=== PATIENT | female | born 1945 | race Caucasian/White ===

== ENCOUNTER → 2017-04-11 10:57 | Outpatient (CLI) | payer MEDICARE, OTHER, SELFPAY ==
[2017-04-11 11:31] VITALS: BP 146/65; PULSE 86; RESP 16; TEMP 36.8; O2SAT 98
[2017-04-11 11:48] LABS: Hematocrit 33.2 % (37-47); Hemoglobin 10.5 g/dl (12.0-15.0)
--- NOTE | 2017-04-11 12:00 | NURSING ---
NO EPOGEN NEEDED PER ORDER
== END ==
PROVIDERS: Family Provider Internal Medicine; PCP Internal Medicine; Visit Provider Internal Medicine Nephrology
DX: N18.3 Chronic kidney disease, stage 3 (moderate) (principal); D63.1 Anemia in chronic kidney disease
CPT/HCPCS: 36591; 85014; 85018; A4216

== ENCOUNTER → 2017-04-25 10:38 | Outpatient (CLI) | payer MEDICARE, OTHER, SELFPAY ==
[2017-04-25 10:54] VITALS: BP 144/71; PULSE 96; RESP 16; TEMP 36.3; O2SAT 100; BMI 46.0
[2017-04-25 10:58] LABS: Hematocrit 31.7 % (37-47); Hemoglobin 10.2 g/dl (12.0-15.0)
== END ==
PROVIDERS: Family Provider Internal Medicine; PCP Internal Medicine; Visit Provider Internal Medicine Nephrology
DX: N18.3 Chronic kidney disease, stage 3 (moderate) (principal); D63.1 Anemia in chronic kidney disease
CPT/HCPCS: 85014; 85018; 96372; J0885

== ENCOUNTER → 2017-05-09 12:39 | Outpatient (CLI) | payer MEDICARE, OTHER, SELFPAY ==
[2017-04-25 10:54] VITALS: BP 144/71; BMI 46.0
[2017-05-09 13:10] VITALS: BP 136/50; PULSE 92; RESP 16; TEMP 37; O2SAT 99; BMI 46.0
[2017-05-09 13:12] LABS: Hematocrit 31.4 % (37-47)
[2017-05-09 13:37] LABS: Albumin, Serum 3.2 g/dL (3.2-5.0); BUN 39 mg/dL (7-18); BUN/Creat Ratio 21.7 RATIO (10-20); Calcium,Total 8.6 mg/dL (8.5-10.1); Chloride 108 mmol/L (98-107); EST Glomerular Filtration Rate 29 mL/min (>60); Est Glom Filt Rate - Afr Amer 35 mL/min (>60); Estimated Creatinine Clearance 23.03 ml/min; Ferritin 40 ng/mL (8-252); Glucose 140 mg/dL (74-106); Iron 77 ug/dL (50-170); Iron Binding Capacity,Total 338 ug/dL (250-450); PERCENT IRON SATURATION 22.8 % (15.0-55.0); Phosphorus 4.5 mg/dL (2.5-4.9); Potassium 4.4 mmol/L (3.5-5.1); Sodium Level 143 mmol/L (136-145)
== END ==
PROVIDERS: Family Provider Internal Medicine; PCP Internal Medicine; Visit Provider Internal Medicine Nephrology
DX: N18.3 Chronic kidney disease, stage 3 (moderate) (principal); D63.1 Anemia in chronic kidney disease
CPT/HCPCS: 80069; 82728; 83540; 83550; 85014; 85018; 96372; J0885

== ENCOUNTER → 2017-05-23 10:44 | Outpatient (CLI) | payer MEDICARE, OTHER, SELFPAY ==
[2017-05-23 11:34] LABS: Hematocrit 32.6 % (37-47); Hemoglobin 10.5 g/dl (12.0-15.0)
[2017-05-23 11:52] LABS: BUN 33 mg/dL (7-18); Creatinine, Serum 1.83 mg/dL (0.55-1.02); Glucose 84 mg/dL (74-106)
[2017-05-23 11:53] LABS: ALB/GLOB Ratio 0.9 RATIO (0.9-2.4); AST(SGOT) 18 U/L (15-37); Alanine Aminotransfer ALT/SGPT 23 U/L (13-56); Albumin, Serum 3.3 g/dL (3.2-5.0); Alkaline Phosphatase 61 U/L (45-117); Anion Gap 10 (5-15); Calcium,Total 8.9 mg/dL (8.5-10.1); Chloride 107 mmol/L (98-107); Cholesterol 121 mg/dL (200); EST Glomerular Filtration Rate 29 mL/min (>60); Est Glom Filt Rate - Afr Amer 35 mL/min (>60); Globulin 3.5 g/dL (2.2-4.2); High Density Lipoprotein 48 mg/dL; Potassium 4.2 mmol/L (3.5-5.1); Protein, Total 6.8 g/dL (6.4-8.2); Sodium Level 142 mmol/L (136-145); Triglycerides 139 mg/dL; Very Low Density Lipoprotein 28 mg/dL (5-40)
[2017-05-23 12:06] LABS: Microalbumin,Random Urine 97.6 mg/L (NO RANGE EST.); Microalbumin:Creatinine Ratio 122.5 mg/g CRE (<30 mg/g CRE)
== END ==
PROVIDERS: Family Provider Internal Medicine; PCP Internal Medicine; Visit Provider Internal Medicine Nephrology
DX: N18.3 Chronic kidney disease, stage 3 (moderate) (principal); D63.1 Anemia in chronic kidney disease
CPT/HCPCS: 36591; 80053; 80061; 82043; 82570; 83036; 85014; 85018; A4216

== ENCOUNTER → 2017-06-06 08:34 | Outpatient (CLI) | payer MEDICARE, OTHER, SELFPAY ==
[2017-06-06 08:59] LABS: Hematocrit 32.8 % (37-47); Hemoglobin 10.4 g/dl (12.0-15.0)
[2017-06-06 09:10] LABS: Albumin, Serum 3.4 g/dL (3.2-5.0); BUN 33 mg/dL (7-18); Calcium,Total 9.1 mg/dL (8.5-10.1); Chloride 108 mmol/L (98-107); Creatinine, Serum 1.83 mg/dL (0.55-1.02); EST Glomerular Filtration Rate 29 mL/min (>60); Est Glom Filt Rate - Afr Amer 35 mL/min (>60); Glucose 101 mg/dL (74-106); Phosphorus 3.4 mg/dL (2.5-4.9); Potassium 4.6 mmol/L (3.5-5.1); Sodium Level 141 mmol/L (136-145)
[2017-06-06 09:21] VITALS: BP 146/76; PULSE 67; RESP 18; TEMP 36.2; O2SAT 98; BMI 46.0
== END ==
PROVIDERS: Family Provider Internal Medicine; PCP Internal Medicine; Visit Provider Internal Medicine Nephrology
DX: N18.3 Chronic kidney disease, stage 3 (moderate) (principal); D63.1 Anemia in chronic kidney disease
CPT/HCPCS: 36592; 80069; 85014; 85018; 96372; J0885; A4216

== ENCOUNTER → 2017-06-19 10:47 | Outpatient (CLI) | payer MEDICARE, OTHER, SELFPAY ==
[2017-06-19 11:05] VITALS: BP 133/69; PULSE 88; RESP 16; TEMP 36.4; O2SAT 99; BMI 47.8
[2017-06-19 11:37] LABS: Hematocrit 33.5 % (37-47); Hemoglobin 10.5 g/dl (12.0-15.0)
== END ==
PROVIDERS: Family Provider Internal Medicine; PCP Internal Medicine; Visit Provider Internal Medicine Nephrology
DX: N18.3 Chronic kidney disease, stage 3 (moderate) (principal); D63.1 Anemia in chronic kidney disease
CPT/HCPCS: 85014; 85018; A4216

== ENCOUNTER → 2017-07-03 10:42 | Outpatient (CLI) | payer MEDICARE, OTHER, SELFPAY ==
[2017-07-03 11:18] LABS: Hematocrit 32.6 % (37-47); Hemoglobin 10.3 g/dl (12.0-15.0)
[2017-07-03 11:39] LABS: Albumin, Serum 3.2 g/dL (3.2-5.0); BUN 25 mg/dL (7-18); BUN/Creat Ratio 13.9 RATIO (10-20); Calcium,Total 8.8 mg/dL (8.5-10.1); Chloride 110 mmol/L (98-107); EST Glomerular Filtration Rate 29 mL/min (>60); Est Glom Filt Rate - Afr Amer 35 mL/min (>60); Glucose 67 mg/dL (74-106); Phosphorus 2.6 mg/dL (2.5-4.9); Potassium 4.8 mmol/L (3.5-5.1); Sodium Level 144 mmol/L (136-145)
[2017-07-03 11:43] VITALS: BP 122/62; PULSE 95; RESP 16; TEMP 36.8; O2SAT 100; BMI 46.0
== END ==
PROVIDERS: Family Provider Internal Medicine; PCP Internal Medicine; Visit Provider Internal Medicine Nephrology
DX: N18.3 Chronic kidney disease, stage 3 (moderate) (principal); D63.1 Anemia in chronic kidney disease
CPT/HCPCS: 80069; 85014; 85018; 96372; J0885; A4216

== ENCOUNTER → 2017-07-17 10:43 | Outpatient (CLI) | payer MEDICARE, OTHER, SELFPAY ==
[2017-07-17 11:08] VITALS: BP 144/73; PULSE 88; RESP 16; TEMP 36.8; O2SAT 98; BMI 46.0
[2017-07-17 11:12] LABS: Hematocrit 33.3 % (37-47); Hemoglobin 10.4 g/dl (12.0-15.0)
== END ==
PROVIDERS: Family Provider Internal Medicine; PCP Internal Medicine; Visit Provider Internal Medicine Nephrology
DX: N18.3 Chronic kidney disease, stage 3 (moderate) (principal); D63.1 Anemia in chronic kidney disease
CPT/HCPCS: 36591; 85014; 85018; 96372; J0885; A4216

== ENCOUNTER → 2017-07-31 10:52 | Outpatient (CLI) | payer MEDICARE, OTHER, SELFPAY ==
[2017-07-31 11:35] LABS: Hematocrit 33.8 % (37-47); Hemoglobin 10.6 g/dl (12.0-15.0)
--- NOTE | 2017-07-31 11:39 | NURSING ---
NO EPOGEN NEEDED PER ORDER, DISCHARGED IN STABLE CONDITION.
[2017-07-31 11:53] LABS: Albumin, Serum 3.4 g/dL (3.2-5.0); BUN 37 mg/dL (7-18); BUN/Creat Ratio 20.7 RATIO (10-20); Chloride 110 mmol/L (98-107); Creatinine, Serum 1.79 mg/dL (0.55-1.02); EST Glomerular Filtration Rate 30 mL/min (>60); Est Glom Filt Rate - Afr Amer 36 mL/min (>60); Ferritin 36 ng/mL (8-252); Glucose 80 mg/dL (74-106); Iron 97 ug/dL (50-170); Iron Binding Capacity,Total 333 ug/dL (250-450); PERCENT IRON SATURATION 29.1 % (15.0-55.0); Phosphorus 3.5 mg/dL (2.5-4.9); Potassium 4.6 mmol/L (3.5-5.1); Sodium Level 143 mmol/L (136-145)
== END ==
PROVIDERS: Family Provider Internal Medicine; PCP Internal Medicine; Visit Provider Internal Medicine Nephrology
DX: N18.3 Chronic kidney disease, stage 3 (moderate) (principal); D63.1 Anemia in chronic kidney disease
CPT/HCPCS: 36591; 80069; 82728; 83540; 83550; 85014; 85018; A4216

== ENCOUNTER → 2017-08-14 10:41 | Outpatient (CLI) | payer MEDICARE, OTHER, SELFPAY ==
[2017-08-14 11:05] LABS: Hematocrit 33.3 % (37-47); Hemoglobin 10.6 g/dl (12.0-15.0)
== END ==
PROVIDERS: Family Provider Internal Medicine; PCP Internal Medicine; Visit Provider Internal Medicine Nephrology
DX: N18.3 Chronic kidney disease, stage 3 (moderate) (principal); D63.1 Anemia in chronic kidney disease
CPT/HCPCS: 85014; 85018; 96523; A4216

== ENCOUNTER → 2017-08-28 11:57 | Outpatient (CLI) | payer MEDICARE, OTHER, SELFPAY ==
[2017-08-28 12:51] VITALS: BP 147/73; PULSE 84; RESP 16; TEMP 36.3
[2017-08-28 12:55] LABS: Hematocrit 33.4 % (37-47); Hemoglobin 10.8 g/dl (12.0-15.0); Mean Corp Hgb Conc 32.3 g/gl (32-36); Mean Corpuscular Volume 98.8 fL (81-99); Mean Platelet Vol. 9.5 fl (6.2-12.0); Platelet Count 206 K/mm3 (150-450); RBC Distribution Width CV 14.3 % (11.6-14.6); RBC Distribution Width SD 50.2 fl (35.1-43.9); Red Blood Count 3.38 M/mm3 (4.2-5.4); White Blood Count 5.5 K/mm3 (4.4-11.0)
[2017-08-28 12:57] LABS: Scan Indicated on CBC? Y/N NO
[2017-08-28 13:17] LABS: Albumin, Serum 3.4 g/dL (3.2-5.0); BUN 39 mg/dL (7-18); BUN/Creat Ratio 18.9 RATIO (10-20); Chloride 109 mmol/L (98-107); Creatinine, Serum 2.06 mg/dL (0.55-1.02); EST Glomerular Filtration Rate 25 mL/min (>60); Est Glom Filt Rate - Afr Amer 30 mL/min (>60); Glucose 77 mg/dL (74-106); Phosphorus 3.6 mg/dL (2.5-4.9); Potassium 4.5 mmol/L (3.5-5.1); Sodium Level 141 mmol/L (136-145)
[2017-08-28 13:21] LABS: PTHIN 157.8 pg/mL (18.4-80.1)
[2017-08-28 13:24] LABS: Vitamin D,25 Hydroxy 18.7 ng/mL (29.95-100.01)
[2017-08-28 13:37] LABS: Microalbumin:Creatinine Ratio 170.5 mg/g CRE (<30 mg/g CRE)
== END ==
PROVIDERS: Family Provider Internal Medicine; PCP Internal Medicine; Visit Provider Internal Medicine Nephrology
DX: N18.3 Chronic kidney disease, stage 3 (moderate) (principal); D63.1 Anemia in chronic kidney disease
CPT/HCPCS: 36591; 80069; 82043; 82306; 82570; 83970; 85027; A4216

== ENCOUNTER → 2017-09-11 10:39 | Outpatient (CLI) | payer MEDICARE, OTHER, SELFPAY ==
[2017-09-11 11:01] LABS: Hematocrit 32.4 % (37-47); Hemoglobin 10.4 g/dl (12.0-15.0)
[2017-09-11 11:04] VITALS: BP 123/75; PULSE 94; RESP 16; TEMP 36.6; O2SAT 98; BMI 47.8
== END ==
PROVIDERS: Family Provider Internal Medicine; PCP Internal Medicine; Visit Provider Internal Medicine Nephrology
DX: N18.3 Chronic kidney disease, stage 3 (moderate) (principal); D63.1 Anemia in chronic kidney disease
CPT/HCPCS: 36591; 85014; 85018; 96372; J0885; A4216

== ENCOUNTER → 2017-09-25 10:46 | Outpatient (CLI) | payer MEDICARE, OTHER, SELFPAY ==
[2017-09-25 11:33] LABS: Hematocrit 32.4 % (37-47)
[2017-09-25 11:43] LABS: Albumin, Serum 3.3 g/dL (3.2-5.0); BUN 31 mg/dL (7-18); BUN/Creat Ratio 15.5 RATIO (10-20); Calcium,Total 8.5 mg/dL (8.5-10.1); Chloride 108 mmol/L (98-107); EST Glomerular Filtration Rate 26 mL/min (>60); Est Glom Filt Rate - Afr Amer 31 mL/min (>60); Glucose 110 mg/dL (74-106); Phosphorus 3.4 mg/dL (2.5-4.9); Sodium Level 142 mmol/L (136-145)
[2017-09-25 11:45] VITALS: BP 126/66; PULSE 89; RESP 16; TEMP 36.3; O2SAT 95; BMI 47.8
== END ==
PROVIDERS: Family Provider Internal Medicine; PCP Internal Medicine; Visit Provider Internal Medicine Nephrology
DX: N18.3 Chronic kidney disease, stage 3 (moderate) (principal); D63.1 Anemia in chronic kidney disease
CPT/HCPCS: 80069; 85014; 85018; 96372; J0885

== ENCOUNTER → 2017-10-09 10:44 | Outpatient (CLI) | payer MEDICARE, OTHER, SELFPAY ==
[2017-10-09 11:17] LABS: Hemoglobin 10.6 g/dl (12.0-15.0)
== END ==
PROVIDERS: Family Provider Internal Medicine; PCP Internal Medicine; Visit Provider Internal Medicine Nephrology
DX: N18.3 Chronic kidney disease, stage 3 (moderate) (principal); D63.1 Anemia in chronic kidney disease
CPT/HCPCS: 36415; 36591; 85014; 85018; J0885; A4216

== ENCOUNTER → 2017-10-23 10:42 | Outpatient (CLI) | payer MEDICARE, OTHER, SELFPAY ==
[2017-10-23 11:17] LABS: Hematocrit 33.4 % (37-47); Hemoglobin 10.4 g/dl (12.0-15.0)
[2017-10-23 11:32] VITALS: BP 116/58; PULSE 91; RESP 18; TEMP 36.7; O2SAT 95; BMI 47.8
[2017-10-23 11:36] LABS: Albumin, Serum 3.5 g/dL (3.2-5.0); BUN 42 mg/dL (7-18); BUN/Creat Ratio 21.4 RATIO (10-20); Calcium,Total 8.8 mg/dL (8.5-10.1); Chloride 107 mmol/L (98-107); Creatinine, Serum 1.96 mg/dL (0.55-1.02); EST Glomerular Filtration Rate 27 mL/min (>60); Est Glom Filt Rate - Afr Amer 32 mL/min (>60); Estimated Creatinine Clearance 21.15 ml/min; Ferritin 63 ng/mL (8-252); Glucose 112 mg/dL (74-106); Iron 69 ug/dL (50-170); Iron Binding Capacity,Total 331 ug/dL (250-450); PERCENT IRON SATURATION 20.8 % (15.0-55.0); Potassium 4.8 mmol/L (3.5-5.1); Sodium Level 142 mmol/L (136-145)
== END ==
PROVIDERS: Family Provider Internal Medicine; PCP Internal Medicine; Visit Provider Internal Medicine Nephrology
DX: N18.3 Chronic kidney disease, stage 3 (moderate) (principal); D63.1 Anemia in chronic kidney disease
CPT/HCPCS: 80069; 82728; 83540; 83550; 85014; 85018; 96372; J0885

== ENCOUNTER → 2017-11-06 10:49 | Outpatient (CLI) | payer MEDICARE, OTHER, SELFPAY ==
[2017-11-06 11:08] LABS: Hematocrit 34.1 % (37-47); Hemoglobin 10.7 g/dl (12.0-15.0)
--- NOTE | 2017-11-06 11:15 | NURSING ---
NO EPOGEN NEEDED PER ORDERS
== END ==
PROVIDERS: Family Provider Internal Medicine; PCP Internal Medicine; Visit Provider Internal Medicine Nephrology
DX: N18.3 Chronic kidney disease, stage 3 (moderate) (principal); D63.1 Anemia in chronic kidney disease
CPT/HCPCS: 36591; 85014; 85018; J0885; A4216

== ENCOUNTER → 2017-11-20 10:08 | Outpatient (CLI) | payer MEDICARE, OTHER, SELFPAY ==
[2017-11-20 10:35] LABS: Hemoglobin 10.6 g/dl (12.0-15.0)
[2017-11-20 11:10] LABS: Albumin, Serum 3.5 g/dL (3.2-5.0); BUN 36 mg/dL (7-18); Calcium,Total 8.9 mg/dL (8.5-10.1); Chloride 109 mmol/L (98-107); EST Glomerular Filtration Rate 29 mL/min (>60); Est Glom Filt Rate - Afr Amer 35 mL/min (>60); Glucose 88 mg/dL (74-106); Phosphorus 3.4 mg/dL (2.5-4.9); Potassium 4.6 mmol/L (3.5-5.1); Sodium Level 144 mmol/L (136-145)
== END ==
PROVIDERS: Family Provider Internal Medicine; PCP Internal Medicine; Visit Provider Internal Medicine Nephrology
DX: N18.3 Chronic kidney disease, stage 3 (moderate) (principal); D63.1 Anemia in chronic kidney disease
CPT/HCPCS: 36591; 80069; 85014; 85018; J0885; A4216

== ENCOUNTER → 2017-12-04 10:39 | Outpatient (CLI) | payer MEDICARE, OTHER, SELFPAY ==
[2017-12-04 11:11] LABS: Hematocrit 32.2 % (37-47); Hemoglobin 10.5 g/dl (12.0-15.0)
== END ==
PROVIDERS: Family Provider Internal Medicine; PCP Internal Medicine; Visit Provider Internal Medicine Nephrology
DX: N18.3 Chronic kidney disease, stage 3 (moderate) (principal); D63.1 Anemia in chronic kidney disease
CPT/HCPCS: 36591; 85014; 85018; J0885; A4216

== ENCOUNTER → 2018-01-01 10:35 | Outpatient (CLI) | payer MEDICARE, OTHER, SELFPAY ==
[2018-01-01 10:53] VITALS: BP 143/73; PULSE 91; RESP 15; TEMP 36.7; BMI 49.6
[2018-01-01 11:04] LABS: Hematocrit 32.4 % (37-47); Hemoglobin 10.3 g/dl (12.0-15.0)
[2018-01-01 11:21] LABS: Albumin, Serum 3.5 g/dL (3.2-5.0); BUN 34 mg/dL (7-18); BUN/Creat Ratio 17.4 RATIO (10-20); Chloride 107 mmol/L (98-107); Creatinine, Serum 1.95 mg/dL (0.55-1.02); EST Glomerular Filtration Rate 27 mL/min (>60); Est Glom Filt Rate - Afr Amer 32 mL/min (>60); Estimated Creatinine Clearance 21.25 ml/min; Glucose 134 mg/dL (74-106); Phosphorus 3.2 mg/dL (2.5-4.9); Potassium 4.5 mmol/L (3.5-5.1); Sodium Level 140 mmol/L (136-145)
== END ==
PROVIDERS: Family Provider Internal Medicine; PCP Internal Medicine; Visit Provider Internal Medicine Nephrology
DX: N18.3 Chronic kidney disease, stage 3 (moderate) (principal); D63.1 Anemia in chronic kidney disease
CPT/HCPCS: 80069; 85014; 85018; 96372; J0885

== ENCOUNTER 2018-01-23 10:51 | Inpatient (IN) | payer OTHER, MEDICARE, SELFPAY ==
[2018-01-23] VITALS (8 sets, daily range): BP systolic 115–149; BP diastolic 54–68; PULSE 88–106; RESP 16–22; TEMP 36.6–36.9; O2SAT 96–100; BMI 48.6; BMI 48.7
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
[2018-01-23] MEDS: Morphine 4 MG/ML Syringe IV (12:20)
[2018-01-23] MEDS: 0.9% Normal Saline 1,000 ML 1000 ML IV (12:20)
[2018-01-23] MEDS: Ondansetron 4 MG/2 ML Vial IV (12:20)
[2018-01-23 12:37] LABS: Absolute Lymphocyte Count 1.11 X10^3/ul (0.83-4.51); Absolute Neutrophil Count 6.2 X10^3/uL (2.0-7.7); Basophil# 0.01 X10^3/uL; Basophil% 0.1 % (0-1); Eosinophil# 0.09 X10^3/uL; Eosinophils% 1.1 % (0-5); Hematocrit 31.4 % (37-47); Lymphocyte # 1.11 X10^3/ul (4.0); Mean Corp Hgb Conc 31.8 g/gl (32-36); Mean Corpuscular Hgb 32.3 pg (27.0-32.0); Mean Corpuscular Volume 101.3 fL (81-99); Mean Platelet Vol. 9.2 fl (6.2-12.0); Monocyte# 0.53 X10^3/uL; Monocyte% 6.7 % (0-10); Neutrophil # 6.16 X10^3/uL (2.7-7.7); Neutrophil % 77.5 % (47-70); POSITIVE COUNT NO; POSITIVE DIFFERENTIAL NO; POSITIVE MORPHOLOGY NO; Platelet Count 166 K/mm3 (150-450); RBC Distribution Width CV 14.5 % (11.6-14.6); RBC Distribution Width SD 51.9 fl (35.1-43.9)
[2018-01-23 12:44] LABS: Prothrombin Time (Protime)PT. 13.1 SECONDS (11.7-14.9)
[2018-01-23 12:51] LABS: ALB/GLOB Ratio 0.9 RATIO (0.9-2.4); AST(SGOT) 21 U/L (15-37); Alanine Aminotransfer ALT/SGPT 34 U/L (13-56); Albumin, Serum 3.2 g/dL (3.2-5.0); Alkaline Phosphatase 52 U/L (45-117); Anion Gap 6 (5-15); BUN 37 mg/dL (7-18); BUN/Creat Ratio 18.9 RATIO (10-20); Calcium,Total 8.8 mg/dL (8.5-10.1); Chloride 109 mmol/L (98-107); Creatinine, Serum 1.96 mg/dL (0.55-1.02); EST Glomerular Filtration Rate 27 mL/min (>60); Est Glom Filt Rate - Afr Amer 32 mL/min (>60); Estimated Creatinine Clearance 21.15 ml/min; Globulin 3.6 g/dL (2.2-4.2); Glucose 111 mg/dL (74-106); Potassium 4.6 mmol/L (3.5-5.1); Protein, Total 6.8 g/dL (6.4-8.2); Sodium Level 140 mmol/L (136-145)
[2018-01-23] MEDS: HYDROmorphone 1 MG/ML Syringe IV ×3 (13:46→23:20)
[2018-01-23 14:39] LABS: Mucous, Urine 0 SEEN /hpf (<or=2+); Squamous Epithelial Cells - UA 0 SEEN /hpf (5-10)
[2018-01-23 14:40] LABS: Glucose, Dipstick Normal (Normal); Ketone-Dipstick Negative (Negative); Leukocyte Esterase-Dipstick 25 /ul (Negative); Nitrite-Dipstick Negative (Negative); Occult Blood-Urine 150 /ul (Negative); Protein-Dipstick 30 mg/dl (Negative); Specific Gravity, Urine 1.015 (1.002-1.030); Urine Bilirubin Dipstick Negative (Negative); Urine Urobilinogen Normal (Normal)
[2018-01-23 14:42] LABS: Color, Urine Yellow (Yellow); Urine Clarity Clear (Clear)
[2018-01-23 14:47] LABS: Red Blood Cells-Urine 5-10 SEEN /hpf (0-5); White Blood Cells 0-5 SEEN /hpf (0-5)
[2018-01-23 14:48] LABS: Bacteria RARE /hpf (None Seen)
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
[2018-01-23] MEDS: morphine 8 MG/ML Syringe 6 MG IV (16:13)
[2018-01-23] MEDS: LORazepam 2 MG/ML Syringe 0.5 MG IV ×2 (16:20→20:26)
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
--- NOTE | 2018-01-23 16:38 | EKG12_ITS ---
Test Reason : ADMISSION ORDER Blood Pressure : / mmHG Vent. Rate : 093 BPM Atrial Rate : 093 BPM P-R Int : 178 ms QRS Dur : 106 ms QT Int : 388 ms P-R-T Axes : 056 -33 048 degrees QTc Int : 482 ms Normal sinus rhythm Left axis deviation Moderate voltage criteria for LVH, may be normal variant Nonspecific T wave abnormality Prolonged QT Abnormal ECG Confirmed by MANASA WANG ([id number]), editor index LALY DEE ([id number]) on 01/27/2018 2:26:35 PM Referred By: MARCUS Confirmed By:MANASA WANG
--- NOTE | 2018-01-23 16:40 | NURSING ---
303 WHITE RT ANKLE FX
--- NOTE | 2018-01-23 16:49 | RAD_ITS ---
STUDY: X-RAY - RIGHT SHOULDER REASON FOR EXAM: Female, 72 years old. Pain TECHNIQUE: 2 view(s) of the shoulder. COMPARISON: None. FINDINGS: There is moderate degenerative arthrosis of the glenohumeral articulation. There is widening of the acromioclavicular joint, likely due to previous resection of the distal clavicle Normal acromion. Normal humeral head and visualized proximal humerus. The soft tissue structures are unremarkable. Normal visualized pulmonary apex. 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 Previous resection of the distal clavicle No acute findings Electronically Signed: Jarred Horn MD at 17:10 EST , Service support ,
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
[2018-01-23] MEDS: 0.9% NaCl Peripheral Flush Adult/Peds IV ×3 (19:15→23:21)
[2018-01-23] MEDS: Gabapentin 300 MG Capsule PO (21:44)
[2018-01-23] MEDS: Atorvastatin Calcium 20 MG Tablet PO (21:44)
[2018-01-23] MEDS: oxyCODONE 5 MG Tablet PO (21:44)
[2018-01-23 21:56] LABS: Bedside Glucose 174 mg/dL (70-110)
[2018-01-23] MEDS: Insulin Lispro 100 UNIT/ML INSULN.PEN SC (22:15)
[2018-01-24] VITALS (13 sets, daily range): BP systolic 120–149; BP diastolic 63–93; PULSE 98–111; RESP 16–20; TEMP 36.6–37.3; O2SAT 92–100; BMI 48.7
[2018-01-24] MEDS: LORazepam 2 MG/ML Syringe 0.5 MG IV (00:50)
[2018-01-24] MEDS: 0.9% NaCl Peripheral Flush Adult/Peds IV ×5 (00:50→10:07)
[2018-01-24] MEDS: HYDROmorphone 1 MG/ML Syringe IV ×3 (02:20→10:07)
[2018-01-24] MEDS: 0.9% Normal Saline 1,000 ML 100 ML IV ×2 (02:20→18:46)
[2018-01-24 07:11] LABS: Bedside Glucose 75 mg/dL (70-110)
[2018-01-24 07:34] LABS: Anion Gap 4 (5-15); BUN 29 mg/dL (7-18); BUN/Creat Ratio 16.2 RATIO (10-20); Calcium,Total 8.1 mg/dL (8.5-10.1); Chloride 111 mmol/L (98-107); Creatinine, Serum 1.79 mg/dL (0.55-1.02); EST Glomerular Filtration Rate 29 mL/min (>60); Est Glom Filt Rate - Afr Amer 36 mL/min (>60); Estimated Creatinine Clearance 22.14 ml/min; Glucose 76 mg/dL (74-106); Potassium 4.5 mmol/L (3.5-5.1); Sodium Level 140 mmol/L (136-145)
[2018-01-24 07:36] LABS: Absolute Lymphocyte Count 1.37 X10^3/ul (0.83-4.51); Absolute Neutrophil Count 4.7 X10^3/uL (2.0-7.7); Basophil# 0.02 X10^3/uL; Basophil% 0.3 % (0-1); Eosinophil# 0.08 X10^3/uL; Eosinophils% 1.2 % (0-5); Hematocrit 26.4 % (37-47); Hemoglobin 8.1 g/dl (12.0-15.0); Lymphocyte # 1.37 X10^3/ul (4.0); Lymphocyte % 20.3 % (19-41); Mean Corp Hgb Conc 30.7 g/gl (32-36); Mean Corpuscular Hgb 31.8 pg (27.0-32.0); Mean Corpuscular Volume 103.5 fL (81-99); Mean Platelet Vol. 9.2 fl (6.2-12.0); Monocyte% 8.9 % (0-10); Neutrophil # 4.67 X10^3/uL (2.7-7.7); Neutrophil % 69.2 % (47-70); Platelet Count 161 K/mm3 (150-450); RBC Distribution Width CV 14.7 % (11.6-14.6); Red Blood Count 2.55 M/mm3 (4.2-5.4); White Blood Count 6.8 K/mm3 (4.4-11.0)
[2018-01-24 07:45] LABS: POSITIVE COUNT NO; POSITIVE DIFFERENTIAL NO; POSITIVE MORPHOLOGY NO
[2018-01-24 08:07] LABS: Hemoglobin A1c 6.7 % (4.2-6.3)
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
[2018-01-24 10:46] LABS: Bedside Glucose 87 mg/dL (70-110)
--- NOTE | 2018-01-24 10:55 | NURSING ---
PT TO OR VIA BED
--- NOTE | 2018-01-24 11:05 | NURSING ---
PT RESTING QUIETLY IN BED WITH EYES CLOSED, RESP EASY
--- NOTE | 2018-01-24 13:06 | RAD_ITS ---
STUDY: X-RAY - RIGHT ANKLE REASON FOR EXAM: Female, 72 years old. ORIF TECHNIQUE: 6 intraoperative view(s) of the ankle. COMPARISON: January 23, 2018. FINDINGS: Interval ORIF of the lateral malleolus with satisfactory alignment of the bony fragments. Interval reduction of medial malleolus fracture. Stable surgical fixation at the tarsal region. Bony details are limited. RAD/Ankle min 3 Views IMPRESSION: Interval ORIF of the lateral malleolus. Electronically Signed: James Boo DO at 20:18 EST Tel [phone], Service support ,
[2018-01-24] MEDS: Cefazolin 2 GM in 0.9% Normal Saline 100 ML IV (14:48)
[2018-01-24 17:10] LABS: Bedside Glucose 78 mg/dL (70-110)
--- NOTE | 2018-01-24 17:13 | PCM.IMDPSTOP ---
Problem List (1) Closed trimalleolar fracture of right ankle Status: Acute Qualifiers: Encounter type: subsequent encounter (2) Open fracture of medial malleolus of right ankle Status: Acute Qualifiers: Encounter type: subsequent encounter Immediate Post-Op Note Date of Procedure: 01/24/18 - Biometry Teacher: Tree Hickey, PGY3 and Monique Sue Primary Surgeon/Physician: Sariah Menchaca, DPM proof passer: none Pre-Operative Diagnosis: trimalleolar ankle fracture, right Post-Operative Diagnosis: trimalleolar ankle fracture, right Surgery/Procedure Performed:: open reduction internal fixation right ankle Description of Surgical Findings:: hemostasis controlled small eschar with drainage adjacent to medial malleolus ankle fracture no purulence see detailed operation report The patient tolerated the procedure and anesthesia well. She was transported to the PACU with vital signs stable and vascular status intact to the right lower extremity. She will be transferred back to the medical surgical floor upon continued stability. Postoperative x-rays were reviewed including reduction of the distal fibula and medial malleolus fracture fragments. Fibular hook plate with screws are in desired trajectory and position. No acute injuries are noted. The ankle mortise is congruent. Her postoperative orders were entered electronically. Due to the medial skin compromise I will also initiate 24-hour course of antibiotics and will confirm her tetanus is updated. Estimated Blood Loss: <200mL Specimen's removed: none Type of Anesthesia:: Spinal - additional right popliteal regional block performed post operative - Admit VTE Documentation VTE Present on Admission: No VTE Mechan Device Prophylaxis: SCD's VTE Pharm Prophylaxis ordered?: Yes
--- NOTE | 2018-01-24 17:16 | OP.PN_ITS ---
Problem List (1) Closed trimalleolar fracture of right ankle Status: Acute Qualifiers: Encounter type: subsequent encounter (2) Open fracture of medial malleolus of right ankle Status: Acute Qualifiers: Encounter type: subsequent encounter Immediate Post-Op Note Date of Procedure: 01/24/18 - Analytical Chemistry Teacher: Tree Hickey, PGY3 and Monique Sue Primary Surgeon/Physician: Sariah Menchaca, DPM scenario writer: none Pre-Operative Diagnosis: trimalleolar ankle fracture, right Post-Operative Diagnosis: trimalleolar ankle fracture, right Surgery/Procedure Performed:: open reduction internal fixation right ankle Description of Surgical Findings:: hemostasis controlled small eschar with drainage adjacent to medial malleolus ankle fracture no purulence see detailed operation report The patient tolerated the procedure and anesthesia well. She was transported to the PACU with vital signs stable and vascular status intact to the right lower extremity. She will be transferred back to the medical surgical floor upon continued stability. Postoperative x-rays were reviewed including reduction of the distal fibula and medial malleolus fracture fragments. Fibular hook plate with screws are in desired trajectory and position. No acute injuries are noted. The ankle mortise is congruent. Her postoperative orders were entered electronically. Due to the medial skin compromise I will also initiate 24-hour course of antibiotics and will confirm her tetanus is updated. Estimated Blood Loss: <200mL Specimen's removed: none Type of Anesthesia:: Spinal - additional right popliteal regional block performed post operative - Admit VTE Documentation VTE Present on Admission: No VTE Mechan Device Prophylaxis: SCD's VTE Pharm Prophylaxis ordered?: Yes
[2018-01-24 18:41] LABS: Bedside Glucose 71 mg/dL (70-110)
[2018-01-24] MEDS: oxyCODONE 5 MG Tablet PO (20:50)
[2018-01-24] MEDS: Gabapentin 300 MG Capsule PO (20:50)
[2018-01-24] MEDS: Atorvastatin Calcium 20 MG Tablet PO (20:53)
[2018-01-24 21:01] LABS: Bedside Glucose 78 mg/dL (70-110)
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
[2018-01-24] MEDS: Cefazolin 1 GM/50 ML BAG IV (23:40)
[2018-01-25] VITALS (10 sets, daily range): BP systolic 131–155; BP diastolic 60–74; PULSE 80–108; RESP 18–20; TEMP 36.7–38.3; O2SAT 88–95
[2018-01-25] MEDS: 0.9% Normal Saline 1,000 ML 100 ML IV ×3 (04:42→23:58)
[2018-01-25] MEDS: oxyCODONE 5 MG Tablet PO ×4 (05:00→19:48)
[2018-01-25] MEDS: Cefazolin 1 GM/50 ML BAG IV ×3 (05:01→21:16)
--- NOTE | 2018-01-25 05:27 | RAD_ITS ---
STUDY: X-RAY CHEST REASON FOR EXAM: Female, 72 years old. Fever reduction internal fixation TECHNIQUE: Single AP portable view of the chest. COMPARISON: The chest January 23, 2018 FINDINGS: Is a left-sided portacatheter tip is in the superior vena cava. There is an underexpanded appearance of the lungs with lower lobe atelectasis. There is trace blunting of the left costophrenic angle. There is mild cardiac enlargement. Normal mediastinum and monica. Normal visualized pulmonary arteries. There is atherosclerotic calcification of the aortic arch with tortuosity. There is a levoscoliosis of the thoracic spine. Normal visualized ribs, clavicles, and shoulders. There is no demonstrated abnormality of the visualized soft tissue structures of the upper abdomen. RAD/Chest 1 View (Portable) IMPRESSION: Mild cardiomegaly finding suspicious for trace effusion and atelectasis left greater than right. Mild cardiomegaly Port-A-Cath. Electronically Signed: Tracey Rashid MD at 16:20 EST Tel , Service support ,
[2018-01-25] MEDS: Acetaminophen 325 MG Tablet 650 MG PO ×3 (06:04→19:48)
--- NOTE | 2018-01-25 06:25 | NURSING ---
UNABLE TO DRAW LABS FROM [facility] AWARE
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
[2018-01-25 06:58] LABS: Absolute Lymphocyte Count 0.85 X10^3/ul (0.83-4.51); Absolute Neutrophil Count 5.9 X10^3/uL (2.0-7.7); Basophil# 0.01 X10^3/uL; Basophil% 0.1 % (0-1); Eosinophils% 1.3 % (0-5); Hematocrit 24.2 % (37-47); Hemoglobin 7.6 g/dl (12.0-15.0); Lymphocyte # 0.85 X10^3/ul (4.0); Mean Corp Hgb Conc 31.4 g/gl (32-36); Mean Corpuscular Hgb 32.1 pg (27.0-32.0); Mean Corpuscular Volume 102.1 fL (81-99); Mean Platelet Vol. 9.3 fl (6.2-12.0); Monocyte# 0.81 X10^3/uL; Monocyte% 10.5 % (0-10); Neutrophil # 5.92 X10^3/uL (2.7-7.7); POSITIVE COUNT NO; POSITIVE DIFFERENTIAL NO; POSITIVE MORPHOLOGY NO; Platelet Count 137 K/mm3 (150-450); RBC Distribution Width SD 50.5 fl (35.1-43.9); Red Blood Count 2.37 M/mm3 (4.2-5.4); White Blood Count 7.7 K/mm3 (4.4-11.0)
[2018-01-25 07:16] LABS: Bedside Glucose 137 mg/dL (70-110)
[2018-01-25 07:35] LABS: Anion Gap 7 (5-15); BUN 21 mg/dL (7-18); BUN/Creat Ratio 12.4 RATIO (10-20); Calcium,Total 7.8 mg/dL (8.5-10.1); Chloride 108 mmol/L (98-107); Creatinine, Serum 1.69 mg/dL (0.55-1.02); EST Glomerular Filtration Rate 31 mL/min (>60); Est Glom Filt Rate - Afr Amer 38 mL/min (>60); Estimated Creatinine Clearance 23.45 ml/min; Glucose 141 mg/dL (74-106); Potassium 4.5 mmol/L (3.5-5.1); Sodium Level 137 mmol/L (136-145)
[2018-01-25 07:38] LABS: Lactic Acid 0.7 mmol/L (0.4-2.0)
[2018-01-25] MEDS: 0.9% NaCl Peripheral Flush Adult/Peds IV (09:37)
--- NOTE | 2018-01-25 09:49 | NURSING ---
pt has unsuccessful standing on left leg-returned to bed, assisted to bedpan-therapy in room at this time
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
--- NOTE | 2018-01-25 11:20 | CASEMGMT ---
Referral received this date from [facility] due to anticipated need for SNF placement. Collaboration with unit RN who reports that patient is currently unable to stand/maintain NWB status on RLE. REFER TO ATTACHED SOCIAL WORK ASSESSMENT FOR ADDITIONAL DETAILS. Met with patient in her room. Introduced self and SW role at [facility]; patient not feeling well so meeting was brief. Discussed need for SNF placement and probable insurance pre-cert. Patient states that there is a skilled nursing close to her house in [place] however she does not feel that they have good therapy. She requests the hospital based TCU. SW explained that I can place her on list and primary SW can follow up with her on Saturday to advise regarding availability and insurance issues. Patient voiced agreement. PT/OT evaluations are completed. PLAN: Referral initiated per message on post-acute referral line for Norma with [facility] TCU with request for her to call primary SW on Saturday; did advise Norma of need for clarification regarding primary insurance along with patient's weight. SW did not ask patient for other options this date as she was not feeling well. Update provided to unit RN and [facility]. FRANKLYN Krishnamurthy
[2018-01-25] MEDS: Losartan Potassium 50 MG Tablet PO (11:26)
[2018-01-25] MEDS: Insulin Lispro 100 UNIT/ML INSULN.PEN SC ×3 (11:27→21:16)
[2018-01-25] MEDS: Ferrous Sulfate 325 MG Tablet PO ×2 (11:27→17:04)
[2018-01-25 11:36] LABS: Bedside Glucose 232 mg/dL (70-110)
[2018-01-25 12:54] LABS: Vitamin D,25 Hydroxy 30.5 ng/mL (29.95-100.01)
[2018-01-25 14:59] LABS: Bacteria 0 SEEN /hpf (None Seen); Color, Urine Yellow (Yellow); Glucose, Dipstick Normal (Normal); Ketone-Dipstick 5 mg/dl (Negative); Leukocyte Esterase-Dipstick 500 /ul (Negative); Mucous, Urine 0 SEEN /hpf (<or=2+); Nitrite-Dipstick Negative (Negative); Occult Blood-Urine 25 /ul (Negative); Protein-Dipstick 30 mg/dl (Negative); Red Blood Cells-Urine 0 SEEN /hpf (0-5); Specific Gravity, Urine 1.015 (1.002-1.030); Squamous Epithelial Cells - UA 0 SEEN /hpf (5-10); Urine Bilirubin Dipstick Negative (Negative); Urine Clarity Sl. Cloudy (Clear); Urine Urobilinogen Normal (Normal)
[2018-01-25 15:05] LABS: White Blood Cells >100 SEEN /hpf (0-5)
[2018-01-25 16:26] LABS: Bedside Glucose 219 mg/dL (70-110)
[2018-01-25] MEDS: Gabapentin 300 MG Capsule PO (19:48)
[2018-01-25] MEDS: Atorvastatin Calcium 20 MG Tablet PO (21:16)
[2018-01-26 00:16] LABS: Bedside Glucose 227 mg/dL (70-110)
[2018-01-26 02:00] VITALS: BP 125/57; PULSE 99; RESP 18; TEMP 36.8; O2SAT 96
[2018-01-26] MEDS: oxyCODONE 5 MG Tablet PO ×3 (05:08→19:02)
[2018-01-26] MEDS: Acetaminophen 325 MG Tablet 650 MG PO ×3 (05:09→19:03)
[2018-01-26] MEDS: 0.9% NaCl Peripheral Flush Adult/Peds IV ×2 (06:24→10:14)
[2018-01-26 06:42] LABS: Absolute Lymphocyte Count 0.89 X10^3/ul (0.83-4.51); Absolute Neutrophil Count 5.1 X10^3/uL (2.0-7.7); Basophil# 0.01 X10^3/uL; Basophil% 0.1 % (0-1); Eosinophil# 0.15 X10^3/uL; Eosinophils% 2.2 % (0-5); Hematocrit 23.9 % (37-47); Hemoglobin 7.5 g/dl (12.0-15.0); Lymphocyte # 0.89 X10^3/ul (4.0); Lymphocyte % 13.1 % (19-41); Mean Corp Hgb Conc 31.4 g/gl (32-36); Mean Corpuscular Hgb 32.1 pg (27.0-32.0); Mean Corpuscular Volume 102.1 fL (81-99); Monocyte# 0.65 X10^3/uL; Monocyte% 9.5 % (0-10); Neutrophil # 5.09 X10^3/uL (2.7-7.7); Neutrophil % 74.8 % (47-70); Platelet Count 134 K/mm3 (150-450); RBC Distribution Width CV 14.3 % (11.6-14.6); Red Blood Count 2.34 M/mm3 (4.2-5.4); White Blood Count 6.8 K/mm3 (4.4-11.0)
[2018-01-26 06:46] LABS: Bedside Glucose 122 mg/dL (70-110)
[2018-01-26 06:51] LABS: POSITIVE COUNT NO; POSITIVE DIFFERENTIAL NO; POSITIVE MORPHOLOGY NO
[2018-01-26 07:06] VITALS: O2SAT 77
[2018-01-26 08:00] VITALS: BP 156/79; PULSE 96; RESP 18; TEMP 37.1; O2SAT 99
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
[2018-01-26 08:49] LABS: Anion Gap 8 (5-15); BUN 23 mg/dL (7-18); BUN/Creat Ratio 13.6 RATIO (10-20); Calcium,Total 7.8 mg/dL (8.5-10.1); Chloride 110 mmol/L (98-107); Creatinine, Serum 1.69 mg/dL (0.55-1.02); EST Glomerular Filtration Rate 31 mL/min (>60); Est Glom Filt Rate - Afr Amer 38 mL/min (>60); Estimated Creatinine Clearance 23.45 ml/min; Glucose 112 mg/dL (74-106); Potassium 4.2 mmol/L (3.5-5.1); Sodium Level 141 mmol/L (136-145)
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
--- NOTE | 2018-01-26 09:12 | DCINST_ITS ---
Discharge Activity: May Not Drive Weight Bearing Status: No weight bearing - use assistive device Keep extremity elevated above heart level: Right Leg Call your doctor if your incision/area has: Continuous Slow Oozing, Sudden Increased Bleeding, Increased Pain/ Swelling, Increased Redness, Foul Smelling Discharge, Swelling at the incision site Call your doctor if you observe: Fever of 101 or Higher, Calf discomfort, Uncontrolled pain Cleanse incision/area with: Keep Dressing Clean & Dry Allergies/Adverse Reactions: Allergies levofloxacin [From Levaquin] Allergy (Verified 02/28/17 10:48) Hives Sulfa (Sulfonamide Antibiotics) Allergy (Verified 02/28/17 10:48) Hives Medications to take at Discharge Insulin Glargine [Lantus SoloStar Pen] 35 units SC DAILY 12/16/12 Losartan Potassium [Cozaar] 50 mg PO DAILY 12/16/12 Pioglitazone [Actos] 45 mg PO DAILY 12/16/12 Simvastatin [Zocor] 40 mg PO QHS 12/16/12 Acetaminophen [Tylenol Extra Strength] 1,000 mg PO Q4H PRN PRN 12/16/13 Epoetin Krishna [Epogen] 13,000 unit SC QMONTH 12/16/13 Calcium Carb/Vitamin D3/Vit K1 [Citracal Soft Chew] 1 each PO DAILY 04/19/15 Gabapentin [Neurontin] 300 tab PO TID PRN 11/07/16 Glimepiride [Amaryl] 4 mg PO DAILY 01/23/18 Primary Care Physician: Neel Ng MD [Primary Care Provider] - Test Results: Test results from this visit will be discussed in further detail at your follow- up appointment, if applicable. Please Follow Up With: Sariah Menchaca DPM When: 4 days [facility]; [phone]
[2018-01-26] MEDS: Losartan Potassium 50 MG Tablet PO (11:11)
[2018-01-26] MEDS: Ferrous Sulfate 325 MG Tablet PO ×2 (11:12→17:36)
[2018-01-26] MEDS: Insulin Lispro 100 UNIT/ML INSULN.PEN SC ×3 (11:12→21:49)
[2018-01-26] MEDS: Enoxaparin 30 MG/0.3 ML Syringe SC (11:13)
[2018-01-26 13:00] VITALS: PULSE 74
[2018-01-26 13:01] LABS: Bedside Glucose 190 mg/dL (70-110)
[2018-01-26 14:30] VITALS: BP 140/70; PULSE 98; RESP 18; TEMP 37.3; O2SAT 94
[2018-01-26 16:31] LABS: Bedside Glucose 275 mg/dL (70-110)
[2018-01-26 20:23] VITALS: BP 136/77; PULSE 102; RESP 18; TEMP 36.8; O2SAT 97
[2018-01-26] MEDS: Gabapentin 300 MG Capsule PO (21:49)
[2018-01-26] MEDS: Atorvastatin Calcium 20 MG Tablet PO (21:49)
[2018-01-26 21:50] LABS: Bedside Glucose 253 mg/dL (70-110)
[2018-01-27] MEDS: oxyCODONE 5 MG Tablet PO ×2 (01:04→06:34)
[2018-01-27] MEDS: Acetaminophen 325 MG Tablet 650 MG PO (01:05)
[2018-01-27 01:15] VITALS: BP 135/73; PULSE 100; RESP 18; TEMP 37; O2SAT 95
[2018-01-27] MEDS: Gabapentin 300 MG Capsule PO (06:33)
[2018-01-27 07:24] VITALS: O2SAT 90
[2018-01-27 07:39] VITALS: BP 142/71; PULSE 98; RESP 16; TEMP 37.1; O2SAT 95
[2018-01-27] MEDS: Enoxaparin 30 MG/0.3 ML Syringe SC (08:35)
[2018-01-27] MEDS: Losartan Potassium 50 MG Tablet PO (08:35)
[2018-01-27 09:45] LABS: Vitamin D,25 Hydroxy 27.9 ng/mL (29.95-100.01)
--- NOTE | 2018-01-27 09:48 | NURSING ---
Spoke with nurse at Dr. Ng's office. States pt has not been given a tetanus shot at their office and is overdue for vaccine. Will notify
--- NOTE | 2018-01-27 10:14 | CASEMGMT ---
Addendum entered by Chantell Miner 01/27/18 15:35: SW updated pt on acceptance into TCU. Pt states understanding. Pt denied additional needs or concerns at this time. Original Note: Social Work Note SW received message from Norma in TCU stating she is able to accept pt and will have a bed for pt today if pt is medically cleared to discharge. Plan: TCU once medically cleared Chantell Miner JUNIOR DATABASE ADMINISTRATOR, CLINICAL PSYCHOLOGY TEACHER
[2018-01-27 11:00] VITALS: BP 131/74; PULSE 105; RESP 16; TEMP 36.9; O2SAT 93
[2018-01-27] MEDS: Insulin Lispro 100 UNIT/ML INSULN.PEN SC (11:34)
[2018-01-27 11:35] LABS: Bedside Glucose 149 mg/dL (70-110)
[2018-01-27] MEDS: Ferrous Sulfate 325 MG Tablet PO (11:35)
[2018-01-27 11:51] LABS: Bedside Glucose 215 mg/dL (70-110)
--- NOTE | 2018-01-27 11:58 | TREXTCAR_ITS ---
- Diet 01/24/18 17:05 Diet: Carbohydrate Controlled 1800 ADA Is pt able to select menu?: yes - Routine Orders/Code Status Routine Lab Work: CBC - weekly starting 02/03/18, - - fingerstick blood sugars ACQHS, cover with sliding scale Humalog per protocol: 200-250: 5 units SQ, 251- 300: 10 units SQ, 301-350-12 units SQ, 351-400: 15 units SQ - Wound(s) BASE OF THROAT Wound Type: Abrasion R ANKLE Wound Type: Surgical Incision Dressing Change: 4X4, ADAPTIC W/BETADINE VERNON, WEBRIL, GEOVANNI - Therapies Weight Bearing: Non weight bearing Physical Therapy: Eval and Treat Occupational Therapy: Eval and Treat - Problem/Diagnosis (1) Closed trimalleolar fracture of right ankle Status: Acute Current Visit: No (2) BAYRON (obstructive sleep apnea) Status: Chronic Current Visit: Yes (3) DM2 (diabetes mellitus, type 2) Status: Chronic Current Visit: No (4) CKD (chronic kidney disease), stage IV Status: Chronic Current Visit: No (5) HTN (hypertension) Status: Chronic Current Visit: No (6) HLD (hyperlipidemia) Status: Chronic Current Visit: No (7) Anemia Status: Chronic Current Visit: No - Allergies/Procedures Done in Hospital Allergies/Adverse Reactions: Allergies levofloxacin [From Levaquin] Allergy (Verified 02/28/17 10:48) Hives Sulfa (Sulfonamide Antibiotics) Allergy (Verified 02/28/17 10:48) Hives Procedures: - - open reduction internal fixation right ankle trimalleolar fracture 01/24/18 - Type of Care/Length of Stay Estimated LOS: Convalescent Care Less Than 30 days Type of Care Needed: Skilled Rehab Potential: Good Prognosis: Good - Additional Orders/Day of Discharge Additional Orders: to see Dr. Menchaca for follow up ankle care-patient will be seen in TCU H&P will serve as current which was dated: 01/23/18 Day of Discharge: 01/27/18 - Follow Up Care Primary Care Physician: Neel Ng MD [Primary Care Provider] - Please Follow Up With: Sariah Menchaca DPM
--- NOTE | 2018-01-27 13:37 | NURSING ---
call placed to [facility] and report given to Rn whom will be taking over care for this pt
[2018-01-27 14:29] VITALS: BP 122/78; PULSE 104; RESP 20; TEMP 37.2; O2SAT 96
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
== END 2018-01-27 14:53 | disposition skilled nursing facility (03) | DRG 493 ==
LOC: ED 14:41 → MS3 16:49
PROVIDERS: Anesthesiology; Internal Medicine; Podiatrist; Admitting Provider Family Medicine; Emergency Provider Emergency Medicine; Family Provider Internal Medicine; PCP Internal Medicine; Visit Provider Internal Medicine
PROC: 0QSJ04Z Reposition Right Fibula with Internal Fixation Device, Open Approach (ICD-10-PCS; principal; 2018-01-24 07:10)
DX: S82.851A Displaced trimalleolar fracture of right lower leg, initial encounter for closed fracture (principal); Z68.42 Body mass index [BMI] 45.0-49.9, adult; D62 Acute posthemorrhagic anemia; E66.01 Morbid (severe) obesity due to excess calories; S82.51XB Displaced fracture of medial malleolus of right tibia, initial encounter for open fracture type I or II; E78.5 Hyperlipidemia, unspecified; I12.9 Hypertensive chronic kidney disease with stage 1 through stage 4 chronic kidney disease, or unspecified chronic kidney disease; E11.22 Type 2 diabetes mellitus with diabetic chronic kidney disease; Z79.4 Long term (current) use of insulin; Z23 Encounter for immunization; V43.52XA Car driver injured in collision with other type car in traffic accident, initial encounter; Y92.410 Unspecified street and highway as the place of occurrence of the external cause; N18.3 Chronic kidney disease, stage 3 (moderate)
CPT/HCPCS: 36415; 51702; 71045; 71260; 73030; 73590; 73600; 73610; 73700; 74177; 76000; 76377; 80048; 80053; 81001; 82306; 82962; 83036; 83605; 83735; 85025; 85610; 85730; 86850; 86900; 86920; 86922; 87040; 87086; 87088; 87186; 93005; 97110; 97162; 97166; 97530; 97535; 99284; 99406; C1713; J1670; J7030; Q9967; A4216; J2405

== ENCOUNTER 2018-01-27 15:17 | Inpatient (IN) | payer OTHER, MEDICARE, SELFPAY ==
[2018-01-27 15:33] VITALS: BP 133/63; PULSE 100; RESP 16; TEMP 37.7; O2SAT 95
[2018-01-27 16:00] VITALS: BMI 50.3
[2018-01-27 16:05] VITALS: BMI 50.3
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
[2018-01-27] MEDS: Ferrous Sulfate 325 MG Tablet PO (17:10)
[2018-01-27] MEDS: Senna/Docusate Sodium 1 Tablet 2 TABLET PO (17:10)
[2018-01-27] MEDS: oxyCODONE 5 MG Tablet PO (17:10)
[2018-01-27 18:50] VITALS: TEMP 37.5
--- NOTE | 2018-01-27 19:00 | NURSING ---
Patient arrived today per report from [facility] 3.
[2018-01-27 21:06] LABS: Bedside Glucose 193 mg/dL (70-110)
[2018-01-27] MEDS: Atorvastatin Calcium 20 MG Tablet PO (21:21)
[2018-01-28] MEDS: oxyCODONE 5 MG Tablet PO ×4 (00:28→21:40)
--- NOTE | 2018-01-28 01:02 | NURSING ---
Soap suds enema given per doctor order pt had a positive result medium hard formed bowel movement. Resting in bed with legs elevated call light within reach.
[2018-01-28] MEDS: Menthol/Lanolin/Calamine/Znox 113 GM Tube 1 APPLIC TOPICAL ×2 (04:56→21:34)
[2018-01-28] MEDS: Pioglitazone Hydrochloride 45 MG Tablet PO (04:56)
[2018-01-28] MEDS: Enoxaparin 30 MG/0.3 ML Syringe SC (04:57)
[2018-01-28] MEDS: Losartan Potassium 50 MG Tablet PO (04:57)
[2018-01-28] MEDS: Senna/Docusate Sodium 1 Tablet 2 TABLET PO (04:57)
[2018-01-28 06:03] LABS: Absolute Neutrophil Count 3.8 X10^3/uL (2.0-7.7); Basophil# 0.01 X10^3/uL; Basophil% 0.2 % (0-1); Eosinophil# 0.25 X10^3/uL; Eosinophils% 4.2 % (0-5); Hematocrit 25.2 % (37-47); Hemoglobin 7.9 g/dl (12.0-15.0); Mean Corp Hgb Conc 31.3 g/gl (32-36); Mean Corpuscular Hgb 31.7 pg (27.0-32.0); Mean Corpuscular Volume 101.2 fL (81-99); Mean Platelet Vol. 9.2 fl (6.2-12.0); Monocyte# 0.49 X10^3/uL; Monocyte% 8.3 % (0-10); Neutrophil # 3.83 X10^3/uL (2.7-7.7); Platelet Count 204 K/mm3 (150-450); RBC Distribution Width CV 13.9 % (11.6-14.6); RBC Distribution Width SD 49.5 fl (35.1-43.9); Red Blood Count 2.49 M/mm3 (4.2-5.4); White Blood Count 5.9 K/mm3 (4.4-11.0)
[2018-01-28 06:21] LABS: POSITIVE COUNT NO; POSITIVE DIFFERENTIAL NO; POSITIVE MORPHOLOGY NO
[2018-01-28 06:23] LABS: Anion Gap 9 (5-15); BUN 23 mg/dL (7-18); Calcium,Total 8.6 mg/dL (8.5-10.1); Chloride 106 mmol/L (98-107); Creatinine, Serum 1.64 mg/dL (0.55-1.02); EST Glomerular Filtration Rate 33 mL/min (>60); Est Glom Filt Rate - Afr Amer 39 mL/min (>60); Estimated Creatinine Clearance 25.27 ml/min; Glucose 140 mg/dL (74-106); Potassium 4.4 mmol/L (3.5-5.1); Sodium Level 140 mmol/L (136-145)
[2018-01-28 06:36] LABS: Bedside Glucose 140 mg/dL (70-110)
[2018-01-28] MEDS: Glucerna Shake 120 ML LIQUID PO (08:06)
[2018-01-28] MEDS: Calcium Carb/Vitamin D 1 TABLET Tablet PO (08:07)
[2018-01-28] MEDS: Acyclovir 5% Tube 1 APPLIC TOPICAL ×4 (09:59→21:32)
[2018-01-28] MEDS: Tuberculin,Purif.prot.deriv. 50 TU/ML Vial 5 ML ID (10:03)
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
[2018-01-28 11:35] LABS: Bedside Glucose 259 mg/dL (70-110)
[2018-01-28] MEDS: Ferrous Sulfate 325 MG Tablet PO ×2 (12:03→16:48)
[2018-01-28 15:40] VITALS: BP 133/55; PULSE 104; RESP 16; TEMP 36.7; O2SAT 96
[2018-01-28] MEDS: 0.9% NaCl VAD Flush 10 ML IV (16:46)
[2018-01-28 16:55] LABS: Bedside Glucose 218 mg/dL (70-110)
[2018-01-28 21:06] LABS: Bedside Glucose 243 mg/dL (70-110)
[2018-01-28] MEDS: Atorvastatin Calcium 20 MG Tablet PO (21:30)
[2018-01-28 21:44] VITALS: PULSE 96; RESP 18; O2SAT 92
[2018-01-29] MEDS: oxyCODONE 5 MG Tablet PO ×3 (03:32→18:40)
[2018-01-29] MEDS: 0.9% NaCl VAD Flush 10 ML IV ×2 (05:22→14:28)
[2018-01-29 06:00] LABS: Hemoglobin 8.4 g/dl (12.0-15.0)
[2018-01-29 06:46] LABS: Bedside Glucose 169 mg/dL (70-110)
[2018-01-29] MEDS: Senna/Docusate Sodium 1 Tablet 2 TABLET PO (06:52)
[2018-01-29] MEDS: Losartan Potassium 50 MG Tablet PO (06:53)
[2018-01-29] MEDS: Pioglitazone Hydrochloride 45 MG Tablet PO (06:53)
[2018-01-29] MEDS: Acyclovir 5% Tube 1 APPLIC TOPICAL ×5 (06:53→21:11)
[2018-01-29] MEDS: Enoxaparin 30 MG/0.3 ML Syringe SC (06:55)
[2018-01-29] MEDS: Menthol/Lanolin/Calamine/Znox 113 GM Tube 1 APPLIC TOPICAL ×2 (06:57→21:10)
[2018-01-29] MEDS: Calcium Carb/Vitamin D 1 TABLET Tablet PO (07:59)
--- NOTE | 2018-01-29 09:53 | NURSING ---
pt going to infusion suite for procrit injection today per her routine order.
[2018-01-29 11:50] LABS: Bedside Glucose 210 mg/dL (70-110)
[2018-01-29] MEDS: Ferrous Sulfate 325 MG Tablet PO ×2 (14:21→18:35)
[2018-01-29 14:35] VITALS: PULSE 93; RESP 18; O2SAT 93
--- NOTE | 2018-01-29 15:45 | ED.RN ---
L chest port de-accessed today, no bleeding, pressure and 4x4 applied
[2018-01-29 15:48] VITALS: BP 161/71; PULSE 104; RESP 20; TEMP 37.3; O2SAT 94
[2018-01-29 16:51] LABS: Bedside Glucose 267 mg/dL (70-110)
[2018-01-29] MEDS: Atorvastatin Calcium 20 MG Tablet PO (21:13)
[2018-01-29 21:21] LABS: Bedside Glucose 227 mg/dL (70-110)
[2018-01-30] MEDS: oxyCODONE 5 MG Tablet PO ×2 (01:33→11:11)
[2018-01-30] MEDS: Acyclovir 5% Tube 1 APPLIC TOPICAL ×5 (06:12→20:46)
[2018-01-30] MEDS: Losartan Potassium 50 MG Tablet PO (06:13)
[2018-01-30] MEDS: Senna/Docusate Sodium 1 Tablet 2 TABLET PO ×2 (06:13→17:57)
[2018-01-30] MEDS: Menthol/Lanolin/Calamine/Znox 113 GM Tube 1 APPLIC TOPICAL ×2 (06:13→20:45)
[2018-01-30] MEDS: Enoxaparin 30 MG/0.3 ML Syringe SC (06:14)
[2018-01-30] MEDS: Polyethylene Glycol 3350 17 GM PACKET PO (06:15)
[2018-01-30 06:51] LABS: Bedside Glucose 172 mg/dL (70-110)
[2018-01-30] MEDS: Pioglitazone Hydrochloride 45 MG Tablet PO (07:08)
[2018-01-30] MEDS: Calcium Carb/Vitamin D 1 TABLET Tablet PO (07:32)
--- NOTE | 2018-01-30 08:54 | NURSING ---
Pt c/o pain to Rt medial calf under split Dr Sánchez aware, will notify Dr Bryant.
--- NOTE | 2018-01-30 09:20 | NURSING ---
CIRCULATION CHECKED ON TOES. PT CAN FEEL ME TOUCHING HER, PT CAN MOVE TOES AND WARM.
[2018-01-30 11:01] LABS: Bedside Glucose 233 mg/dL (70-110)
[2018-01-30] MEDS: Ferrous Sulfate 325 MG Tablet PO ×2 (11:11→17:57)
[2018-01-30] MEDS: Acetaminophen 500 MG Tablet 1000 MG PO (13:31)
[2018-01-30 15:24] VITALS: BP 104/72; PULSE 103; RESP 18; TEMP 35.9; O2SAT 95
[2018-01-30 17:06] LABS: Bedside Glucose 350 mg/dL (70-110)
[2018-01-30] MEDS: Atorvastatin Calcium 20 MG Tablet PO (20:46)
[2018-01-30] MEDS: Bisacodyl 5 MG Tablet 10 MG PO (20:46)
[2018-01-30 21:51] LABS: Bedside Glucose 274 mg/dL (70-110)
[2018-01-31] MEDS: oxyCODONE 5 MG Tablet PO ×4 (00:17→22:05)
[2018-01-31 06:56] LABS: Bedside Glucose 242 mg/dL (70-110)
[2018-01-31] MEDS: Menthol/Lanolin/Calamine/Znox 113 GM Tube 1 APPLIC TOPICAL ×2 (07:08→20:38)
[2018-01-31] MEDS: Polyethylene Glycol 3350 17 GM PACKET PO (07:11)
[2018-01-31] MEDS: Enoxaparin 30 MG/0.3 ML Syringe SC (07:12)
[2018-01-31] MEDS: Senna/Docusate Sodium 1 Tablet 2 TABLET PO ×2 (07:12→17:16)
[2018-01-31] MEDS: Pioglitazone Hydrochloride 45 MG Tablet PO (07:12)
[2018-01-31] MEDS: Losartan Potassium 50 MG Tablet PO (07:12)
[2018-01-31] MEDS: Acyclovir 5% Tube 1 APPLIC TOPICAL ×5 (07:14→20:38)
[2018-01-31] MEDS: Nystatin Powder 15gm Bottle 1 APPLIC TOPICAL ×2 (07:23→20:38)
[2018-01-31] MEDS: Calcium Carb/Vitamin D 1 TABLET Tablet PO (07:59)
--- NOTE | 2018-01-31 09:40 | CASEMGMT ---
Addendum entered by Noelle Walden 01/31/18 10:36: Reviewed and approved social work student MDS documentation. JAG Li, TELEHEALTH NURSE Original Note: Brief interview for mental status (BIMS) and mood (PHQ-9) completed on this day. BIMS score 14/15. PHQ-9 score 06/11. Roger Jules social work student
[2018-01-31 11:55] LABS: Bedside Glucose 271 mg/dL (70-110)
[2018-01-31] MEDS: Ferrous Sulfate 325 MG Tablet PO ×2 (12:19→17:16)
[2018-01-31] MEDS: Insulin Lispro 100 UNIT/ML INSULN.PEN SC ×2 (12:20→17:16)
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
[2018-01-31 16:00] VITALS: BP 147/82; PULSE 102; RESP 22; TEMP 36.8; O2SAT 94
[2018-01-31 17:05] LABS: Bedside Glucose 256 mg/dL (70-110)
[2018-01-31 20:19] VITALS: PULSE 78; RESP 18; O2SAT 97
[2018-01-31] MEDS: Atorvastatin Calcium 20 MG Tablet PO (20:38)
[2018-01-31 20:45] LABS: Mucous, Urine 0 SEEN /hpf (<or=2+); Red Blood Cells-Urine 0 SEEN /hpf (0-5)
[2018-01-31 20:53] LABS: Color, Urine Yellow (Yellow); Glucose, Dipstick 100 mg/dl (Normal); Ketone-Dipstick Negative (Negative); Leukocyte Esterase-Dipstick 500 /ul (Negative); Nitrite-Dipstick Positive (Negative); Occult Blood-Urine 25 /ul (Negative); Protein-Dipstick 30 mg/dl (Negative); Urine Bilirubin Dipstick Negative (Negative); Urine Clarity Cloudy (Clear); Urine Urobilinogen Normal (Normal)
[2018-01-31 21:06] LABS: Bedside Glucose 256 mg/dL (70-110)
[2018-01-31 21:08] LABS: Bacteria 1+ /hpf (None Seen); Squamous Epithelial Cells - UA 0-5 SEEN /hpf (5-10); White Blood Cells >100 SEEN /hpf (0-5)
[2018-02-01] MEDS: oxyCODONE 5 MG Tablet PO ×3 (03:16→17:09)
[2018-02-01] MEDS: Enoxaparin 30 MG/0.3 ML Syringe SC (04:32)
[2018-02-01] MEDS: Acyclovir 5% Tube 1 APPLIC TOPICAL ×5 (04:33→21:09)
[2018-02-01] MEDS: Nystatin Powder 15gm Bottle 1 APPLIC TOPICAL ×2 (04:33→21:07)
[2018-02-01] MEDS: Pioglitazone Hydrochloride 45 MG Tablet PO (04:34)
[2018-02-01] MEDS: Menthol/Lanolin/Calamine/Znox 113 GM Tube 1 APPLIC TOPICAL ×2 (04:34→21:07)
[2018-02-01] MEDS: Losartan Potassium 50 MG Tablet PO (04:34)
[2018-02-01] MEDS: Polyethylene Glycol 3350 17 GM PACKET PO (04:34)
[2018-02-01] MEDS: Senna/Docusate Sodium 1 Tablet 2 TABLET PO ×2 (04:35→16:53)
[2018-02-01 06:50] LABS: Bedside Glucose 229 mg/dL (70-110)
[2018-02-01] MEDS: Insulin Lispro 100 UNIT/ML INSULN.PEN SC ×2 (07:08→12:09)
[2018-02-01] MEDS: Calcium Carb/Vitamin D 1 TABLET Tablet PO (09:27)
[2018-02-01] MEDS: CEFUROXIME AXETIL 250 MG TABLET 500 MG PO ×2 (10:08→16:54)
[2018-02-01 11:26] LABS: Bedside Glucose 296 mg/dL (70-110)
[2018-02-01] MEDS: Ferrous Sulfate 325 MG Tablet PO ×2 (12:09→16:53)
[2018-02-01 15:25] VITALS: BP 148/76; PULSE 98; RESP 16; TEMP 36.9; O2SAT 95
--- NOTE | 2018-02-01 15:59 | NURSING ---
Aware of most recent Vital Signs at approx 1525.
[2018-02-01] MEDS: Insulin Lispro 100 UNIT/ML INSULN.PEN 13 UNIT SC (16:52)
[2018-02-01 17:00] LABS: Bedside Glucose 211 mg/dL (70-110)
[2018-02-01] MEDS: Atorvastatin Calcium 20 MG Tablet PO (21:09)
[2018-02-01 21:11] LABS: Bedside Glucose 211 mg/dL (70-110)
[2018-02-02] MEDS: oxyCODONE 5 MG Tablet PO ×3 (02:05→23:06)
[2018-02-02] MEDS: Nystatin Powder 15gm Bottle 1 APPLIC TOPICAL ×2 (06:24→20:27)
[2018-02-02] MEDS: Menthol/Lanolin/Calamine/Znox 113 GM Tube 1 APPLIC TOPICAL ×2 (06:24→20:26)
[2018-02-02] MEDS: Polyethylene Glycol 3350 17 GM PACKET PO (06:26)
[2018-02-02] MEDS: Acyclovir 5% Tube 1 APPLIC TOPICAL ×5 (06:27→20:27)
[2018-02-02] MEDS: Enoxaparin 30 MG/0.3 ML Syringe SC (06:27)
[2018-02-02] MEDS: Losartan Potassium 50 MG Tablet PO (06:28)
[2018-02-02] MEDS: Pioglitazone Hydrochloride 45 MG Tablet PO (06:28)
[2018-02-02] MEDS: CEFUROXIME AXETIL 250 MG TABLET 500 MG PO ×2 (06:28→17:19)
[2018-02-02] MEDS: Senna/Docusate Sodium 1 Tablet 2 TABLET PO ×2 (06:28→17:20)
[2018-02-02 06:55] LABS: Bedside Glucose 171 mg/dL (70-110)
[2018-02-02] MEDS: Acetaminophen 500 MG Tablet 1000 MG PO (07:17)
[2018-02-02] MEDS: Calcium Carb/Vitamin D 1 TABLET Tablet PO (07:51)
[2018-02-02] MEDS: Insulin Lispro 100 UNIT/ML INSULN.PEN 13 UNIT SC ×2 (07:51→17:21)
--- NOTE | 2018-02-02 09:20 | NURSING ---
dr munoz notified of Urine culture results, no new orders, continue w/ceftin order
[2018-02-02] MEDS: hydrOXYzine PAM 25 MG Capsule PO ×3 (11:26→21:26)
[2018-02-02 11:41] LABS: Bedside Glucose 134 mg/dL (70-110)
[2018-02-02] MEDS: Ferrous Sulfate 325 MG Tablet PO ×2 (12:15→17:19)
[2018-02-02 15:56] VITALS: BP 135/73; PULSE 94; RESP 14; TEMP 36.9; O2SAT 93
[2018-02-02 17:06] LABS: Bedside Glucose 197 mg/dL (70-110)
[2018-02-02] MEDS: Atorvastatin Calcium 20 MG Tablet PO (20:28)
[2018-02-02 21:11] LABS: Bedside Glucose 133 mg/dL (70-110)
[2018-02-03] MEDS: hydrOXYzine PAM 25 MG Capsule PO ×3 (02:14→20:43)
[2018-02-03 02:35] LABS: Absolute Lymphocyte Count 2.54 X10^3/ul (0.83-4.51); Absolute Neutrophil Count 4.4 X10^3/uL (2.0-7.7); Basophil# 0.03 X10^3/uL; Basophil% 0.4 % (0-1); Eosinophil# 0.31 X10^3/uL; Eosinophils% 3.7 % (0-5); Hemoglobin 8.7 g/dl (12.0-15.0); Lymphocyte # 2.54 X10^3/ul (4.0); Lymphocyte % 30.7 % (19-41); Mean Corp Hgb Conc 31.1 g/gl (32-36); Mean Corpuscular Hgb 31.6 pg (27.0-32.0); Mean Corpuscular Volume 101.8 fL (81-99); Mean Platelet Vol. 9.1 fl (6.2-12.0); Monocyte# 0.85 X10^3/uL; Monocyte% 10.3 % (0-10); Neutrophil # 4.41 X10^3/uL (2.7-7.7); Neutrophil % 53.2 % (47-70); Platelet Count 387 K/mm3 (150-450); RBC Distribution Width CV 15.5 % (11.6-14.6); RBC Distribution Width SD 56.4 fl (35.1-43.9); Red Blood Count 2.75 M/mm3 (4.2-5.4); White Blood Count 8.3 K/mm3 (4.4-11.0)
[2018-02-03 02:36] LABS: POSITIVE COUNT NO; POSITIVE DIFFERENTIAL NO; POSITIVE MORPHOLOGY NO
[2018-02-03 02:46] LABS: ALB/GLOB Ratio 0.8 RATIO (0.9-2.4); AST(SGOT) 20 U/L (15-37); Alanine Aminotransfer ALT/SGPT 30 U/L (13-56); Albumin, Serum 2.7 g/dL (3.2-5.0); Alkaline Phosphatase 92 U/L (45-117); Anion Gap 6 (5-15); BUN 40 mg/dL (7-18); BUN/Creat Ratio 20.5 RATIO (10-20); Calcium,Total 8.8 mg/dL (8.5-10.1); Chloride 102 mmol/L (98-107); Creatinine, Serum 1.95 mg/dL (0.55-1.02); EST Glomerular Filtration Rate 27 mL/min (>60); Est Glom Filt Rate - Afr Amer 32 mL/min (>60); Estimated Creatinine Clearance 21.25 ml/min; Globulin 3.6 g/dL (2.2-4.2); Glucose 166 mg/dL (74-106); Potassium 4.7 mmol/L (3.5-5.1); Protein, Total 6.3 g/dL (6.4-8.2); Sodium Level 136 mmol/L (136-145)
[2018-02-03] MEDS: Menthol/Lanolin/Calamine/Znox 113 GM Tube 1 APPLIC TOPICAL ×2 (06:22→20:19)
[2018-02-03] MEDS: Polyethylene Glycol 3350 17 GM PACKET PO (06:23)
[2018-02-03] MEDS: Acyclovir 5% Tube 1 APPLIC TOPICAL ×5 (06:23→20:19)
[2018-02-03] MEDS: Losartan Potassium 50 MG Tablet PO (06:23)
[2018-02-03] MEDS: CEFUROXIME AXETIL 250 MG TABLET 500 MG PO ×2 (06:24→17:44)
[2018-02-03] MEDS: Nystatin Powder 15gm Bottle 1 APPLIC TOPICAL ×2 (06:24→20:19)
[2018-02-03] MEDS: Senna/Docusate Sodium 1 Tablet 2 TABLET PO ×2 (06:24→17:44)
[2018-02-03] MEDS: Pioglitazone Hydrochloride 45 MG Tablet PO (06:24)
[2018-02-03] MEDS: Enoxaparin 30 MG/0.3 ML Syringe SC (06:25)
[2018-02-03 06:45] LABS: Bedside Glucose 152 mg/dL (70-110)
[2018-02-03] MEDS: oxyCODONE 5 MG Tablet PO ×3 (07:57→20:24)
[2018-02-03] MEDS: Insulin Lispro 100 UNIT/ML INSULN.PEN 13 UNIT SC ×3 (07:59→17:47)
[2018-02-03] MEDS: Calcium Carb/Vitamin D 1 TABLET Tablet PO (07:59)
--- NOTE | 2018-02-03 10:51 | NURSING ---
Pt to have surgery tomorrow with Dr. Menchaca. NPO after midnight, may have neurontin, pain meds, BP meds and 1/2 dose of lantus if BS above 200. Hold lovenox and any diuretics. Patient to have chlorahexadine bath tonight and tomorrow before surgery. Dr. Sánchez reviewed labs, NO for IV NS. Patient updated.
[2018-02-03 11:16] LABS: Bedside Glucose 233 mg/dL (70-110)
[2018-02-03] MEDS: Ferrous Sulfate 325 MG Tablet PO ×2 (11:49→17:44)
[2018-02-03] MEDS: 0.9% Normal Saline 1,000 ML 60 ML IV (13:09)
[2018-02-03 15:28] VITALS: PULSE 106; RESP 18; O2SAT 95
[2018-02-03 15:51] VITALS: BP 129/65; PULSE 100; RESP 18; TEMP 36.8; O2SAT 92
--- NOTE | 2018-02-03 16:29 | NURSING ---
Patient was being len lifted back to bed with the assistance of two PARTS ASSEMBLER's. Len lift got caught on the trapeze bar on the bed. PARTS ASSEMBLER began to raise bed to get len lift free from trapeze. The scale screen on the len caught on the trapeze and the front cover of the screen snapped off and fell onto patient's head. Patient has c/o mild pain to area. Area assessed, no redness, warmth, open area, bleeding or edema. Neuro checks WNL. Patient given ice for back of head. Patient monitored closely, stating I am fine. Area continues to have no swelling, redness or warmth. Dr. Sánchez updated.
[2018-02-03 17:01] LABS: Bedside Glucose 207 mg/dL (70-110)
[2018-02-03] MEDS: CHLORHEXIDINE GLUC 2% CLOTH 1 EACH TOWELETTE TOPICAL (17:55)
[2018-02-03] MEDS: Atorvastatin Calcium 20 MG Tablet PO (20:34)
[2018-02-03 21:26] LABS: Bedside Glucose 233 mg/dL (70-110)
[2018-02-04] MEDS: oxyCODONE 5 MG Tablet PO ×4 (02:12→22:33)
--- NOTE | 2018-02-04 02:54 | NURSING ---
Pt awake throughout the night, c/o pain, being uncomfortable, and having 'terrible and confusing dreams'. Slightly disoriented and needing cues to redirect her to present time/place. Once more awake, pt usual coherent and aware self. Medicated per orders, and questions regarding surgery this afternoon answered. Pt used bed mariee and was repositioned comfortably back in bed. Continuing to monitor.
[2018-02-04] MEDS: 0.9% Normal Saline 1,000 ML 60 ML IV (04:46)
[2018-02-04 06:45] LABS: Bedside Glucose 198 mg/dL (70-110)
[2018-02-04 07:12] LABS: Anion Gap 7 (5-15); BUN 39 mg/dL (7-18); BUN/Creat Ratio 21.9 RATIO (10-20); Calcium,Total 8.7 mg/dL (8.5-10.1); Chloride 104 mmol/L (98-107); Creatinine, Serum 1.78 mg/dL (0.55-1.02); EST Glomerular Filtration Rate 30 mL/min (>60); Est Glom Filt Rate - Afr Amer 36 mL/min (>60); Estimated Creatinine Clearance 23.28 ml/min; Glucose 205 mg/dL (74-106); Potassium 4.5 mmol/L (3.5-5.1); Sodium Level 138 mmol/L (136-145)
[2018-02-04 07:13] LABS: Hemoglobin 8.8 g/dl (12.0-15.0); Mean Corp Hgb Conc 31.4 g/gl (32-36); Mean Corpuscular Hgb 32.6 pg (27.0-32.0); Mean Corpuscular Volume 103.7 fL (81-99); Mean Platelet Vol. 9.1 fl (6.2-12.0); Platelet Count 392 K/mm3 (150-450); RBC Distribution Width SD 54.5 fl (35.1-43.9); White Blood Count 6.2 K/mm3 (4.4-11.0)
[2018-02-04 07:14] LABS: Differential Indicated MANUAL DIFF; POSITIVE COUNT YES; POSITIVE DIFFERENTIAL NO; POSITIVE MORPHOLOGY YES
[2018-02-04 07:41] LABS: Basophil 1 % (0-1); Eosinophil 7 % (0-5); Lymphocyte 25 % (19-41); Metamyelocyte 4 % (0-1); Myelocyte 1 (0-0); Neutrophil-Segmented 62 % (47-70); Total Cells Counted 100 (MANUAL DIFF)
[2018-02-04 07:42] LABS: Anisocytosis 1+; Hypochromasia 1+; Platelet Estimate ADEQUATE (ADEQ)
[2018-02-04 07:43] LABS: Absolute Lymphocyte Count 1.54 X10^3/ul (0.83-4.51); Absolute Neutrophil Count 3.8 X10^3/uL (2.0-7.7); Lymphocyte # 1.54 X10^3/ul (4.0); Neutrophil # 3.83 X10^3/uL (2.7-7.7)
[2018-02-04 09:06] LABS: Bedside Glucose 209 mg/dL (70-110)
--- NOTE | 2018-02-04 10:34 | CASEMGMT ---
Plan of care meeting held. Resident present, no family member present at this time. No discharge date set at this time. Resident to continue with further care and treatment on the Transitional Care Unit. Resident reporting that son's were unable to attend due to working. Resident reporting to be planning to notify family about information from meeting. Resident aware of current concerns of resident being able to return home, resident planning to meet with this social media developer next week to discuss other discharge options and facilities. Resident is open to transitioning to another facility, if needed. Support given. Will continue to follow. JAG Li, AUTOMOTIVE BRAKE SPECIALIST
[2018-02-04 10:49] VITALS: BP 128/70; PULSE 98; RESP 18; TEMP 36.9; O2SAT 92
[2018-02-04] MEDS: Tuberculin,Purif.prot.deriv. 50 TU/ML Vial 5 ML ID (10:55)
[2018-02-04] MEDS: Losartan Potassium 50 MG Tablet PO (10:55)
[2018-02-04] MEDS: CHLORHEXIDINE GLUC 2% CLOTH 1 EACH TOWELETTE TOPICAL (11:00)
[2018-02-04 11:21] LABS: Bedside Glucose 237 mg/dL (70-110)
--- NOTE | 2018-02-04 12:40 | NURSING ---
Taken to OR at this time.
--- NOTE | 2018-02-04 12:41 | NURSING ---
TO OR VIA BED
[2018-02-04 16:30] VITALS: BP 124/66; PULSE 95; RESP 18; TEMP 36.8; O2SAT 92
--- NOTE | 2018-02-04 17:21 | NURSING ---
report called from PACU, pt had ORIF right ankle, pt to be NWB. 4mg morphine given post procedure for hip pain.
[2018-02-04 17:51] LABS: Bedside Glucose 173 mg/dL (70-110)
[2018-02-04] MEDS: Ferrous Sulfate 325 MG Tablet PO (18:25)
[2018-02-04] MEDS: Calcium Carb/Vitamin D 1 TABLET Tablet PO (18:25)
[2018-02-04] MEDS: Senna/Docusate Sodium 1 Tablet 2 TABLET PO (18:25)
[2018-02-04] MEDS: Insulin Lispro 100 UNIT/ML INSULN.PEN 13 UNIT SC (18:26)
[2018-02-04] MEDS: CEFUROXIME AXETIL 250 MG TABLET 500 MG PO (18:26)
--- NOTE | 2018-02-04 18:32 | NURSING ---
AWAKE IN BED. RIGHT TOES WARM AND MOBILE. STATES PAIN IS A 6/10 AND MEDICATED WITH OXY R 10MG PER ORDERS. WILL MONITOR. DENIES ANY OTHER NEEDS. CAST WITH GEOVANNI INPLACE TO RLE.
--- NOTE | 2018-02-04 21:23 | NURSING ---
Dr Sánchez notified of pt unable to void since having surgery today. N.O. for Flomax 0.4mg and reinsert Sorensen catheter.
[2018-02-04] MEDS: Menthol/Lanolin/Calamine/Znox 113 GM Tube 1 APPLIC TOPICAL (21:24)
[2018-02-04] MEDS: Nystatin Powder 15gm Bottle 1 APPLIC TOPICAL (21:25)
[2018-02-04] MEDS: Acyclovir 5% Tube 1 APPLIC TOPICAL (21:26)
[2018-02-04] MEDS: Atorvastatin Calcium 20 MG Tablet PO (21:27)
[2018-02-04 21:30] VITALS: PULSE 80; RESP 18; O2SAT 92
--- NOTE | 2018-02-04 21:49 | PCM.IMDPSTOP ---
Problem List (1) Right ankle pain Status: Acute (2) Open fracture of medial malleolus of right ankle Status: Acute Qualifiers: Encounter type: subsequent encounter Fracture alignment: displaced Immediate Post-Op Note Date of Procedure: 02/04/18 - Transaction Manager: Sandy Rowan PGY3, Heriberto PGY1. Surgeon: Sariah Menchaca DPM Primary Surgeon/Physician: Sariah Menchaca DPM preforming machine operator: none Pre-Operative Diagnosis: medial malleolus fracture right Post-Operative Diagnosis: medial malleolus fracture right Surgery/Procedure Performed:: open reduction internal fixation right ankle Description of Surgical Findings:: Hemostasis controlled Materials: one arthrex 3.0 partially threaded cannulated screw, one 4.0 cannulated partially threaded cannulated screw, two k wires, 26 gauge cerclage wire, one washer, 2-0 Vicryl, 2-0 nylon No purulence or deep tissue necrosis Stable fracture fixation achieved medial malleolus fracture fragment is small and soft See detailed operation report The patient tolerated the procedure and anesthesia well. She was transported back to the PACU with vital signs stable and vascular status intact to the right lower extremity. Postoperative x-rays were reviewed with reduction of fracture and hardware in place. Postoperative orders were entered electronically. She will be transferred back to the transitional care unit upon continued stability in the PACU and I will follow her while in house. Estimated Blood Loss: <400 mL Specimen's removed: none Type of Anesthesia:: Local - post operative injection: 4 cc of lidocaine with epinephrine administered medial high ankle block fashion right, Spinal - Admit VTE Documentation VTE Present on Admission: No VTE Mechan Device Prophylaxis: SCD's VTE Pharm Prophylaxis ordered?: Yes
--- NOTE | 2018-02-04 22:30 | NURSING ---
PATIENT UNABLE TO VOID AND FEELING PRESSURE. DR NOGUERA NOTIFIED PER SYLVAIN VIZCARRA. ORDER TO INSERT MUNOZ RECEIVED. #16 MUNOZ INSERTED AND RETURNED 500 CC CLEAR YELLOW URINE. PATIENT TOLERATED PROCEDURE WELL. WILL CONT TO MONITOR. SAME REPORTED TO SYLVAIN VIZCARRA AND SYLVAIN MEMBRENO.
[2018-02-04] MEDS: hydrOXYzine PAM 25 MG Capsule PO (22:34)
--- NOTE | 2018-02-04 22:37 | PCM.OPRPT ---
Report of Operation Description of Procedure: Please refer to full operation report for this date of service under the correct V number encounter.
[2018-02-05] MEDS: oxyCODONE 5 MG Tablet PO ×4 (04:41→23:32)
[2018-02-05] MEDS: Senna/Docusate Sodium 1 Tablet 2 TABLET PO ×2 (04:43→17:24)
[2018-02-05] MEDS: Losartan Potassium 50 MG Tablet PO (04:43)
[2018-02-05] MEDS: CEFUROXIME AXETIL 250 MG TABLET 500 MG PO ×2 (04:43→17:23)
[2018-02-05] MEDS: Polyethylene Glycol 3350 17 GM PACKET PO (04:43)
[2018-02-05] MEDS: Nystatin Powder 15gm Bottle 1 APPLIC TOPICAL ×2 (04:44→20:51)
[2018-02-05] MEDS: Acyclovir 5% Tube 1 APPLIC TOPICAL (04:44)
[2018-02-05] MEDS: Menthol/Lanolin/Calamine/Znox 113 GM Tube 1 APPLIC TOPICAL ×2 (04:44→20:51)
[2018-02-05] MEDS: Pioglitazone Hydrochloride 45 MG Tablet PO (06:40)
[2018-02-05] MEDS: Enoxaparin 30 MG/0.3 ML Syringe SC (06:40)
[2018-02-05] MEDS: Gabapentin 300 MG Capsule PO (06:43)
[2018-02-05 06:51] LABS: Bedside Glucose 186 mg/dL (70-110)
[2018-02-05 07:23] LABS: Absolute Lymphocyte Count 1.71 X10^3/ul (0.83-4.51); Absolute Neutrophil Count 4.5 X10^3/uL (2.0-7.7); Basophil# 0.04 X10^3/uL; Basophil% 0.5 % (0-1); Eosinophil# 0.27 X10^3/uL; Eosinophils% 3.7 % (0-5); Hematocrit 25.2 % (37-47); Hemoglobin 7.9 g/dl (12.0-15.0); Lymphocyte # 1.71 X10^3/ul (4.0); Lymphocyte % 23.2 % (19-41); Mean Corp Hgb Conc 31.3 g/gl (32-36); Mean Corpuscular Hgb 32.2 pg (27.0-32.0); Mean Corpuscular Volume 102.9 fL (81-99); Mean Platelet Vol. 8.9 fl (6.2-12.0); Monocyte# 0.68 X10^3/uL; Monocyte% 9.2 % (0-10); Neutrophil # 4.51 X10^3/uL (2.7-7.7); Neutrophil % 61.4 % (47-70); Platelet Count 358 K/mm3 (150-450); RBC Distribution Width CV 15.1 % (11.6-14.6); RBC Distribution Width SD 53.5 fl (35.1-43.9); Red Blood Count 2.45 M/mm3 (4.2-5.4); White Blood Count 7.4 K/mm3 (4.4-11.0)
[2018-02-05 07:24] LABS: POSITIVE COUNT YES; POSITIVE DIFFERENTIAL NO; POSITIVE MORPHOLOGY YES
[2018-02-05] MEDS: Insulin Lispro 100 UNIT/ML INSULN.PEN 13 UNIT SC ×3 (07:39→17:25)
[2018-02-05] MEDS: Acetaminophen 500 MG Tablet 1000 MG PO (07:43)
[2018-02-05] MEDS: Calcium Carb/Vitamin D 1 TABLET Tablet PO (07:46)
[2018-02-05 11:06] LABS: Bedside Glucose 214 mg/dL (70-110)
[2018-02-05] MEDS: Ferrous Sulfate 325 MG Tablet PO ×2 (11:48→17:23)
--- NOTE | 2018-02-05 12:37 | MDS.RN ---
Information for the mds was obtained from review of the clinical record, interview of resident, staff, and direct observation of resident's care.
[2018-02-05 15:01] LABS: Pathologist Review Reviewed
[2018-02-05 15:11] LABS: Pathologist Review Reviewed
[2018-02-05] MEDS: 0.9% Normal Saline 1,000 ML 60 ML IV (15:13)
[2018-02-05 16:00] VITALS: BP 135/70; PULSE 108; RESP 16; TEMP 37.2; O2SAT 94
[2018-02-05 17:00] LABS: Bedside Glucose 198 mg/dL (70-110)
[2018-02-05] MEDS: Tamsulosin HCl 0.4 MG Capsule PO (17:23)
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
--- NOTE | 2018-02-05 18:04 | NURSING ---
PT REFUSED TO LET ME TURN HER. REPORTED TO SYLVAIN GIANG
[2018-02-05 20:30] VITALS: BP 107/48; PULSE 109; RESP 17; TEMP 37.4; O2SAT 93
[2018-02-05] MEDS: Atorvastatin Calcium 20 MG Tablet PO (20:51)
[2018-02-05 21:06] LABS: Bedside Glucose 234 mg/dL (70-110)
[2018-02-06] MEDS: Menthol/Lanolin/Calamine/Znox 113 GM Tube 1 APPLIC TOPICAL ×2 (04:52→20:38)
[2018-02-06] MEDS: Polyethylene Glycol 3350 17 GM PACKET PO (04:52)
[2018-02-06] MEDS: Pioglitazone Hydrochloride 45 MG Tablet PO (04:53)
[2018-02-06] MEDS: CEFUROXIME AXETIL 250 MG TABLET 500 MG PO ×2 (04:53→18:15)
[2018-02-06] MEDS: Senna/Docusate Sodium 1 Tablet 2 TABLET PO ×2 (04:53→18:15)
[2018-02-06] MEDS: Losartan Potassium 50 MG Tablet PO (04:53)
[2018-02-06] MEDS: Nystatin Powder 15gm Bottle 1 APPLIC TOPICAL ×2 (04:54→20:38)
[2018-02-06] MEDS: Enoxaparin 30 MG/0.3 ML Syringe SC (04:54)
[2018-02-06 06:35] LABS: Bedside Glucose 211 mg/dL (70-110)
[2018-02-06] MEDS: Insulin Lispro 100 UNIT/ML INSULN.PEN 13 UNIT SC ×3 (06:55→18:17)
[2018-02-06] MEDS: oxyCODONE 5 MG Tablet PO ×3 (06:55→23:09)
[2018-02-06] MEDS: hydrOXYzine PAM 25 MG Capsule PO ×3 (06:56→20:45)
[2018-02-06] MEDS: Calcium Carb/Vitamin D 1 TABLET Tablet PO (08:23)
[2018-02-06] MEDS: 0.9% Normal Saline 1,000 ML 60 ML IV (08:25)
[2018-02-06 09:58] VITALS: PULSE 105; O2SAT 89
[2018-02-06] MEDS: Ferrous Sulfate 325 MG Tablet PO ×2 (11:24→18:15)
[2018-02-06 11:25] LABS: Bedside Glucose 154 mg/dL (70-110)
[2018-02-06 14:23] VITALS: O2SAT 92
--- NOTE | 2018-02-06 14:53 | NURSING ---
NO to d/c IVF and d/c acyclovir, cold sore healed.
[2018-02-06 15:38] VITALS: BP 119/82; PULSE 68; RESP 16; TEMP 36.9; O2SAT 92
[2018-02-06 17:06] LABS: Bedside Glucose 191 mg/dL (70-110)
[2018-02-06] MEDS: Tamsulosin HCl 0.4 MG Capsule PO (18:15)
[2018-02-06] MEDS: Atorvastatin Calcium 20 MG Tablet PO (20:39)
[2018-02-06 21:36] LABS: Bedside Glucose 175 mg/dL (70-110)
[2018-02-07] MEDS: hydrOXYzine PAM 25 MG Capsule PO (03:23)
[2018-02-07] MEDS: Polyethylene Glycol 3350 17 GM PACKET PO (05:35)
[2018-02-07] MEDS: Menthol/Lanolin/Calamine/Znox 113 GM Tube 1 APPLIC TOPICAL ×2 (05:45→20:00)
[2018-02-07] MEDS: Senna/Docusate Sodium 1 Tablet 2 TABLET PO ×2 (05:46→18:13)
[2018-02-07] MEDS: CEFUROXIME AXETIL 250 MG TABLET 500 MG PO ×2 (05:47→18:13)
[2018-02-07] MEDS: Nystatin Powder 15gm Bottle 1 APPLIC TOPICAL ×2 (05:47→20:01)
[2018-02-07] MEDS: Pioglitazone Hydrochloride 45 MG Tablet PO (05:48)
[2018-02-07] MEDS: Losartan Potassium 50 MG Tablet PO (05:48)
[2018-02-07] MEDS: Enoxaparin 30 MG/0.3 ML Syringe SC (05:48)
[2018-02-07 07:10] VITALS: O2SAT 97
[2018-02-07 07:51] LABS: Bedside Glucose 149 mg/dL (70-110)
[2018-02-07] MEDS: Insulin Lispro 100 UNIT/ML INSULN.PEN 13 UNIT SC ×3 (07:56→18:13)
[2018-02-07] MEDS: Calcium Carb/Vitamin D 1 TABLET Tablet PO (07:56)
[2018-02-07 11:35] LABS: Bedside Glucose 198 mg/dL (70-110)
[2018-02-07] MEDS: Ferrous Sulfate 325 MG Tablet PO ×2 (11:51→18:13)
[2018-02-07] MEDS: oxyCODONE 5 MG Tablet PO ×2 (13:50→20:00)
[2018-02-07 15:08] VITALS: BP 128/60; PULSE 101; RESP 16; TEMP 37.2; O2SAT 91
[2018-02-07 16:55] LABS: Bedside Glucose 171 mg/dL (70-110)
[2018-02-07] MEDS: Tamsulosin HCl 0.4 MG Capsule PO (18:13)
[2018-02-07] MEDS: Atorvastatin Calcium 20 MG Tablet PO (20:01)
[2018-02-07 20:58] VITALS: PULSE 69; RESP 18; O2SAT 94
[2018-02-07 21:06] LABS: Bedside Glucose 145 mg/dL (70-110)
[2018-02-08] MEDS: hydrOXYzine PAM 25 MG Capsule PO ×3 (00:46→20:48)
[2018-02-08] MEDS: oxyCODONE 5 MG Tablet PO ×2 (00:46→05:17)
[2018-02-08] MEDS: Acetaminophen 500 MG Tablet 1000 MG PO (05:17)
[2018-02-08] MEDS: Polyethylene Glycol 3350 17 GM PACKET PO (05:18)
[2018-02-08] MEDS: Nystatin Powder 15gm Bottle 1 APPLIC TOPICAL ×2 (05:18→20:46)
[2018-02-08] MEDS: Senna/Docusate Sodium 1 Tablet 2 TABLET PO ×2 (05:18→17:23)
[2018-02-08] MEDS: Menthol/Lanolin/Calamine/Znox 113 GM Tube 1 APPLIC TOPICAL ×2 (05:18→20:47)
[2018-02-08] MEDS: CEFUROXIME AXETIL 250 MG TABLET 500 MG PO ×2 (05:19→17:23)
[2018-02-08] MEDS: Losartan Potassium 50 MG Tablet PO (05:19)
[2018-02-08] MEDS: Pioglitazone Hydrochloride 45 MG Tablet PO (05:19)
[2018-02-08] MEDS: Enoxaparin 30 MG/0.3 ML Syringe SC (06:48)
[2018-02-08] MEDS: Insulin Lispro 100 UNIT/ML INSULN.PEN 13 UNIT SC ×3 (06:49→17:44)
[2018-02-08 07:00] LABS: Bedside Glucose 167 mg/dL (70-110)
[2018-02-08 07:15] VITALS: O2SAT 91
[2018-02-08] MEDS: Calcium Carb/Vitamin D 1 TABLET Tablet PO (07:48)
[2018-02-08 10:15] VITALS: PULSE 103; RESP 18; O2SAT 96
[2018-02-08 11:21] LABS: Bedside Glucose 187 mg/dL (70-110)
[2018-02-08] MEDS: Ferrous Sulfate 325 MG Tablet PO ×2 (11:51→17:23)
--- NOTE | 2018-02-08 14:03 | NURSING ---
PER SYLVAIN HUNT, THIS NURSE REMOVED MUNOZ AT 1400. PT TOLERATED WELL.
[2018-02-08 16:00] VITALS: BP 141/74; PULSE 101; RESP 14; TEMP 37.4; O2SAT 94
[2018-02-08 16:46] LABS: Bedside Glucose 140 mg/dL (70-110)
[2018-02-08] MEDS: Tamsulosin HCl 0.4 MG Capsule PO (17:23)
[2018-02-08] MEDS: Atorvastatin Calcium 20 MG Tablet PO (20:46)
[2018-02-08 21:05] LABS: Bedside Glucose 238 mg/dL (70-110)
--- NOTE | 2018-02-08 22:33 | PCA ---
patient has voided 3x's my shift for a total output of 1,000. Bladder scan at 2100 was 15. Same reported to RN.
[2018-02-09] MEDS: oxyCODONE 5 MG Tablet PO ×2 (00:54→22:58)
[2018-02-09 06:45] LABS: Bedside Glucose 168 mg/dL (70-110)
[2018-02-09] MEDS: hydrOXYzine PAM 25 MG Capsule PO ×2 (06:50→22:57)
[2018-02-09] MEDS: Enoxaparin 30 MG/0.3 ML Syringe SC (06:51)
[2018-02-09] MEDS: Losartan Potassium 50 MG Tablet PO (06:51)
[2018-02-09] MEDS: Senna/Docusate Sodium 1 Tablet 2 TABLET PO ×2 (06:51→17:04)
[2018-02-09] MEDS: CEFUROXIME AXETIL 250 MG TABLET 500 MG PO ×2 (06:51→17:04)
[2018-02-09] MEDS: Pioglitazone Hydrochloride 45 MG Tablet PO (06:52)
[2018-02-09] MEDS: Nystatin Powder 15gm Bottle 1 APPLIC TOPICAL ×2 (06:56→20:21)
[2018-02-09] MEDS: Menthol/Lanolin/Calamine/Znox 113 GM Tube 1 APPLIC TOPICAL ×2 (06:57→20:21)
[2018-02-09] MEDS: Calcium Carb/Vitamin D 1 TABLET Tablet PO (08:14)
[2018-02-09] MEDS: Insulin Lispro 100 UNIT/ML INSULN.PEN 13 UNIT SC ×2 (08:16→11:59)
[2018-02-09 11:08] VITALS: O2SAT 94
[2018-02-09 11:20] LABS: Bedside Glucose 181 mg/dL (70-110)
[2018-02-09] MEDS: Ferrous Sulfate 325 MG Tablet PO ×2 (11:59→17:04)
[2018-02-09 15:32] VITALS: BP 137/84; PULSE 105; RESP 16; TEMP 37.2; O2SAT 100
[2018-02-09] MEDS: Tamsulosin HCl 0.4 MG Capsule PO (17:04)
[2018-02-09 17:06] LABS: Bedside Glucose 74 mg/dL (70-110)
--- NOTE | 2018-02-09 17:06 | NURSING ---
PT BL0OD SURGER 73. GRAMCRACKERS GIVEN. WILL RECHECK.
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
[2018-02-09] MEDS: Insulin Lispro 100 UNIT/ML INSULN.PEN 10 UNIT SC (18:40)
[2018-02-09 18:41] LABS: Bedside Glucose 167 mg/dL (70-110)
[2018-02-09] MEDS: Atorvastatin Calcium 20 MG Tablet PO (20:20)
[2018-02-09 20:22] VITALS: PULSE 108; RESP 18; O2SAT 92
[2018-02-09 21:26] LABS: Bedside Glucose 202 mg/dL (70-110)
[2018-02-10] MEDS: Menthol/Lanolin/Calamine/Znox 113 GM Tube 1 APPLIC TOPICAL ×2 (05:44→19:48)
[2018-02-10] MEDS: Nystatin Powder 15gm Bottle 1 APPLIC TOPICAL ×2 (05:45→19:49)
[2018-02-10] MEDS: Enoxaparin 30 MG/0.3 ML Syringe SC (05:46)
[2018-02-10] MEDS: CEFUROXIME AXETIL 250 MG TABLET 500 MG PO ×2 (05:48→18:18)
[2018-02-10] MEDS: Pioglitazone Hydrochloride 45 MG Tablet PO (05:48)
[2018-02-10] MEDS: Losartan Potassium 50 MG Tablet PO (05:48)
[2018-02-10] MEDS: Senna/Docusate Sodium 1 Tablet 2 TABLET PO ×2 (05:48→18:18)
[2018-02-10 06:51] LABS: Bedside Glucose 113 mg/dL (70-110)
[2018-02-10] MEDS: Calcium Carb/Vitamin D 1 TABLET Tablet PO (08:03)
[2018-02-10] MEDS: Insulin Lispro 100 UNIT/ML INSULN.PEN 10 UNIT SC ×2 (08:03→12:17)
[2018-02-10 11:10] LABS: Bedside Glucose 158 mg/dL (70-110)
[2018-02-10] MEDS: hydrOXYzine PAM 25 MG Capsule PO ×2 (12:16→18:19)
[2018-02-10] MEDS: Ferrous Sulfate 325 MG Tablet PO ×2 (12:16→18:17)
[2018-02-10] MEDS: oxyCODONE 5 MG Tablet PO (12:16)
--- NOTE | 2018-02-10 12:28 | CASEMGMT ---
Addendum entered by Noelle Walden 02/10/18 13:51: Reviewed and approved social work student MDS documentation. JAG Li, SUBSTATION TECHNICIAN Original Note: Brief interview for mental status (BIMS) and mood (PHQ-9) completed on this day. BIMS score 13/15. PHQ-9 score 05/14. Roger Jules social work student
[2018-02-10 15:26] VITALS: BP 131/94; PULSE 97; RESP 16; TEMP 36.9; O2SAT 95
--- NOTE | 2018-02-10 15:36 | CASEMGMT ---
Social Work Met with resident in room. This social media intern met with resident to discuss discharge planning. Resident aware that resident is not able to return to home alone at this time. Resident open to transition to an extended care facility when needed. Resident reporting that first option for facilities is [facility]. Resident voicing no other facilities at this time. Support given. Will continue to follow as needed. Noelle Walden, FLANGER, SHEET TAKER
[2018-02-10 17:00] LABS: Bedside Glucose 86 mg/dL (70-110)
[2018-02-10] MEDS: Tamsulosin HCl 0.4 MG Capsule PO (18:17)
[2018-02-10 19:30] VITALS: PULSE 92; RESP 18; O2SAT 93
[2018-02-10] MEDS: Atorvastatin Calcium 20 MG Tablet PO (19:55)
[2018-02-10 21:15] LABS: Bedside Glucose 218 mg/dL (70-110)
[2018-02-11] MEDS: oxyCODONE 5 MG Tablet PO (00:50)
[2018-02-11 04:58] LABS: Absolute Neutrophil Count 5.1 X10^3/uL (2.0-7.7); Basophil# 0.03 X10^3/uL; Basophil% 0.4 % (0-1); Eosinophil# 0.23 X10^3/uL; Eosinophils% 2.9 % (0-5); Hematocrit 26.2 % (37-47); Hemoglobin 8.2 g/dl (12.0-15.0); Lymphocyte % 22.5 % (19-41); Mean Corp Hgb Conc 31.3 g/gl (32-36); Mean Corpuscular Hgb 31.5 pg (27.0-32.0); Mean Corpuscular Volume 100.8 fL (81-99); Mean Platelet Vol. 8.4 fl (6.2-12.0); Monocyte# 0.76 X10^3/uL; Monocyte% 9.5 % (0-10); Neutrophil # 5.13 X10^3/uL (2.7-7.7); Neutrophil % 64.2 % (47-70); Platelet Count 291 K/mm3 (150-450); RBC Distribution Width CV 15.3 % (11.6-14.6); RBC Distribution Width SD 56.2 fl (35.1-43.9)
[2018-02-11 05:01] LABS: POSITIVE COUNT NO; POSITIVE DIFFERENTIAL NO; POSITIVE MORPHOLOGY NO
[2018-02-11 05:13] LABS: Anion Gap 8 (5-15); BUN 32 mg/dL (7-18); Chloride 103 mmol/L (98-107); EST Glomerular Filtration Rate 34 mL/min (>60); Est Glom Filt Rate - Afr Amer 41 mL/min (>60); Estimated Creatinine Clearance 25.52 ml/min; Glucose 156 mg/dL (74-106); Potassium 4.5 mmol/L (3.5-5.1); Sodium Level 139 mmol/L (136-145)
[2018-02-11 06:30] VITALS: PULSE 66; RESP 16; O2SAT 95
[2018-02-11 06:31] LABS: Bedside Glucose 159 mg/dL (70-110)
[2018-02-11] MEDS: Menthol/Lanolin/Calamine/Znox 113 GM Tube 1 APPLIC TOPICAL ×2 (06:37→21:46)
[2018-02-11] MEDS: Nystatin Powder 15gm Bottle 1 APPLIC TOPICAL ×2 (06:37→21:46)
[2018-02-11] MEDS: Enoxaparin 30 MG/0.3 ML Syringe SC (06:39)
[2018-02-11] MEDS: Polyethylene Glycol 3350 17 GM PACKET PO (06:39)
[2018-02-11] MEDS: CEFUROXIME AXETIL 250 MG TABLET 500 MG PO ×2 (06:39→17:21)
[2018-02-11] MEDS: Pioglitazone Hydrochloride 45 MG Tablet PO (06:39)
[2018-02-11] MEDS: Senna/Docusate Sodium 1 Tablet 2 TABLET PO ×2 (06:39→17:21)
[2018-02-11] MEDS: Losartan Potassium 50 MG Tablet PO (06:39)
[2018-02-11] MEDS: Calcium Carb/Vitamin D 1 TABLET Tablet PO (07:53)
[2018-02-11] MEDS: Insulin Lispro 100 UNIT/ML INSULN.PEN 10 UNIT SC ×3 (07:53→17:22)
[2018-02-11 08:04] VITALS: O2SAT 93
--- NOTE | 2018-02-11 08:59 | NURSING ---
pt c/o not sleeping well at night, dr munoz updated, new order for doxepin qhs. pt updated.
[2018-02-11] MEDS: hydrOXYzine PAM 25 MG Capsule PO (11:00)
[2018-02-11] MEDS: Ferrous Sulfate 325 MG Tablet PO ×2 (11:01→17:21)
[2018-02-11 11:26] LABS: Bedside Glucose 217 mg/dL (70-110)
[2018-02-11 15:36] VITALS: BP 124/71; PULSE 63; RESP 18; TEMP 35.4; O2SAT 94
[2018-02-11 17:15] LABS: Bedside Glucose 144 mg/dL (70-110)
[2018-02-11] MEDS: Tamsulosin HCl 0.4 MG Capsule PO (17:21)
[2018-02-11] MEDS: 0.9% NaCl VAD Flush 10 ML IV (19:32)
[2018-02-11 21:00] LABS: Bedside Glucose 200 mg/dL (70-110)
[2018-02-11] MEDS: Doxepin Hcl 25 MG Capsule PO (21:46)
[2018-02-11] MEDS: Atorvastatin Calcium 20 MG Tablet PO (21:46)
[2018-02-12] MEDS: Pioglitazone Hydrochloride 45 MG Tablet PO (06:13)
[2018-02-12] MEDS: Losartan Potassium 50 MG Tablet PO (06:13)
[2018-02-12] MEDS: Senna/Docusate Sodium 1 Tablet 2 TABLET PO ×2 (06:13→17:28)
[2018-02-12] MEDS: CEFUROXIME AXETIL 250 MG TABLET 500 MG PO (06:13)
[2018-02-12] MEDS: Polyethylene Glycol 3350 17 GM PACKET PO (06:13)
[2018-02-12] MEDS: Enoxaparin 30 MG/0.3 ML Syringe SC (06:14)
[2018-02-12] MEDS: Menthol/Lanolin/Calamine/Znox 113 GM Tube 1 APPLIC TOPICAL ×2 (06:14→21:35)
[2018-02-12] MEDS: Nystatin Powder 15gm Bottle 1 APPLIC TOPICAL ×2 (06:15→21:36)
[2018-02-12 07:00] LABS: Bedside Glucose 177 mg/dL (70-110)
[2018-02-12] MEDS: 0.9% NaCl VAD Flush 10 ML IV (07:02)
--- NOTE | 2018-02-12 07:27 | NURSING ---
LAST DOSE OF CEFTIN THIS AM. URINE APPEARS TO BE CLOUDY YELLOW. PATIENT STATES SHE FEELS MUCH BETTER. DENIES ANY BURNING AT THIS TIME. AFEBRILE. SAME REPORTED TO SYLVAIN VIZCARRA. WILL CONT TO MONITOR.
[2018-02-12] MEDS: Insulin Lispro 100 UNIT/ML INSULN.PEN 10 UNIT SC ×3 (07:52→17:29)
[2018-02-12] MEDS: Calcium Carb/Vitamin D 1 TABLET Tablet PO (07:52)
[2018-02-12 08:11] VITALS: O2SAT 94
[2018-02-12] MEDS: Ferrous Sulfate 325 MG Tablet PO ×2 (11:47→17:28)
[2018-02-12] MEDS: oxyCODONE 5 MG Tablet PO ×3 (11:51→21:34)
[2018-02-12 11:56] LABS: Bedside Glucose 185 mg/dL (70-110)
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
[2018-02-12 16:00] VITALS: BP 140/66; PULSE 94; RESP 20; TEMP 37; O2SAT 95
[2018-02-12 17:10] LABS: Bedside Glucose 145 mg/dL (70-110)
[2018-02-12] MEDS: Tamsulosin HCl 0.4 MG Capsule PO (17:28)
[2018-02-12 21:31] LABS: Bedside Glucose 224 mg/dL (70-110)
[2018-02-12] MEDS: hydrOXYzine PAM 25 MG Capsule PO (21:34)
[2018-02-12] MEDS: Atorvastatin Calcium 20 MG Tablet PO (21:35)
[2018-02-12] MEDS: Doxepin Hcl 25 MG Capsule PO (21:36)
[2018-02-12 21:38] VITALS: PULSE 68; RESP 18; O2SAT 95
[2018-02-13] MEDS: oxyCODONE 5 MG Tablet PO (03:02)
[2018-02-13] MEDS: Polyethylene Glycol 3350 17 GM PACKET PO (05:05)
[2018-02-13] MEDS: Senna/Docusate Sodium 1 Tablet 2 TABLET PO ×2 (05:05→17:44)
[2018-02-13] MEDS: Enoxaparin 30 MG/0.3 ML Syringe SC (05:05)
[2018-02-13] MEDS: Pioglitazone Hydrochloride 45 MG Tablet PO (05:05)
[2018-02-13] MEDS: Nystatin Powder 15gm Bottle 1 APPLIC TOPICAL ×2 (05:06→20:22)
[2018-02-13] MEDS: Losartan Potassium 50 MG Tablet PO (05:06)
[2018-02-13] MEDS: Menthol/Lanolin/Calamine/Znox 113 GM Tube 1 APPLIC TOPICAL ×2 (05:06→20:22)
[2018-02-13 06:51] LABS: Bedside Glucose 174 mg/dL (70-110)
--- NOTE | 2018-02-13 07:43 | MDS.RN ---
Information for the mds was obtained from review of the clinical record, interview of resident, staff, and direct observation of resident's care. resident remained non-ambulatory during lookback period, did not ambulate in room or corridor, or off unit.
[2018-02-13] MEDS: Calcium Carb/Vitamin D 1 TABLET Tablet PO (07:53)
[2018-02-13] MEDS: Insulin Lispro 100 UNIT/ML INSULN.PEN 10 UNIT SC ×3 (07:53→17:45)
--- NOTE | 2018-02-13 08:45 | NURSING ---
in bed, states dizziness and lightheadedness better. see vital signs intervention. will cont to monitor.
[2018-02-13 09:35] VITALS: BP 61/33; PULSE 71
--- NOTE | 2018-02-13 09:35 | NURSING ---
Addendum entered by Alana Singh 02/13/18 09:50: blood sugar 226. Original Note: up in chair working with therapy. pt c/o sweating, blurred vision and dizziness. bp 61/33 and hr 71 per monitor to left fa while up in chair. pt pale and diaphoretic. jasen rn made. pt back to bed with lulu. bp while supine 94/59 and hr 94 per monitor. denies any sob, cp or nausea. will monitor. enc po intake.
[2018-02-13 09:42] VITALS: BP 94/59; PULSE 94; RESP 20
[2018-02-13 09:45] LABS: Bedside Glucose 226 mg/dL (70-110)
[2018-02-13 09:48] VITALS: BP 108/57; PULSE 96
[2018-02-13 10:46] LABS: Bedside Glucose 202 mg/dL (70-110)
[2018-02-13 11:57] VITALS: BP 111/68; PULSE 100; RESP 18; O2SAT 93
[2018-02-13] MEDS: Ferrous Sulfate 325 MG Tablet PO ×2 (11:59→17:44)
[2018-02-13 14:53] VITALS: BP 116/64; PULSE 103; RESP 16; TEMP 36.8; O2SAT 92
[2018-02-13 16:51] LABS: Bedside Glucose 217 mg/dL (70-110)
[2018-02-13] MEDS: Tamsulosin HCl 0.4 MG Capsule PO (17:44)
[2018-02-13] MEDS: Atorvastatin Calcium 20 MG Tablet PO (20:21)
[2018-02-13 20:25] VITALS: PULSE 109; RESP 18; O2SAT 95
[2018-02-13 21:16] LABS: Bedside Glucose 162 mg/dL (70-110)
[2018-02-13] MEDS: Doxepin Hcl 25 MG Capsule PO (23:09)
[2018-02-14] MEDS: hydrOXYzine PAM 25 MG Capsule PO (01:47)
[2018-02-14] MEDS: Nystatin Powder 15gm Bottle 1 APPLIC TOPICAL ×2 (05:15→22:10)
[2018-02-14] MEDS: Pioglitazone Hydrochloride 45 MG Tablet PO (05:15)
[2018-02-14] MEDS: Senna/Docusate Sodium 1 Tablet 2 TABLET PO ×2 (05:15→17:32)
[2018-02-14] MEDS: Menthol/Lanolin/Calamine/Znox 113 GM Tube 1 APPLIC TOPICAL ×2 (05:16→22:10)
[2018-02-14] MEDS: Enoxaparin 30 MG/0.3 ML Syringe SC (05:16)
[2018-02-14] MEDS: oxyCODONE 5 MG Tablet PO (06:54)
[2018-02-14 06:55] LABS: Bedside Glucose 171 mg/dL (70-110)
[2018-02-14] MEDS: Calcium Carb/Vitamin D 1 TABLET Tablet PO (07:58)
[2018-02-14] MEDS: Insulin Lispro 100 UNIT/ML INSULN.PEN 10 UNIT SC ×3 (07:58→17:33)
--- NOTE | 2018-02-14 08:00 | NURSING ---
dr munoz on unit and aware of pt c/o left side/flank pain. notified that neurontin given and per him we will monitor.
[2018-02-14] MEDS: Gabapentin 300 MG Capsule PO (08:03)
[2018-02-14 09:07] VITALS: PULSE 92; RESP 18
[2018-02-14 11:25] LABS: Bedside Glucose 141 mg/dL (70-110)
[2018-02-14] MEDS: Ferrous Sulfate 325 MG Tablet PO ×2 (11:49→17:32)
[2018-02-14 15:22] VITALS: O2SAT 90
[2018-02-14 15:42] VITALS: BP 133/56; PULSE 100; RESP 18; TEMP 37.2; O2SAT 92
[2018-02-14 16:55] LABS: Bedside Glucose 130 mg/dL (70-110)
[2018-02-14] MEDS: Tamsulosin HCl 0.4 MG Capsule PO (17:32)
[2018-02-14 20:56] LABS: Bedside Glucose 145 mg/dL (70-110)
[2018-02-14] MEDS: Atorvastatin Calcium 20 MG Tablet PO (22:11)
[2018-02-14] MEDS: Doxepin Hcl 25 MG Capsule PO (23:11)
[2018-02-15] MEDS: Menthol/Lanolin/Calamine/Znox 113 GM Tube 1 APPLIC TOPICAL ×2 (05:24→20:14)
[2018-02-15] MEDS: Nystatin Powder 15gm Bottle 1 APPLIC TOPICAL ×2 (05:24→20:14)
[2018-02-15] MEDS: Senna/Docusate Sodium 1 Tablet 2 TABLET PO (05:25)
[2018-02-15] MEDS: Pioglitazone Hydrochloride 45 MG Tablet PO (05:25)
[2018-02-15] MEDS: Enoxaparin 30 MG/0.3 ML Syringe SC (05:26)
[2018-02-15 07:06] LABS: Bedside Glucose 150 mg/dL (70-110)
[2018-02-15] MEDS: Calcium Carb/Vitamin D 1 TABLET Tablet PO (07:47)
[2018-02-15] MEDS: Insulin Lispro 100 UNIT/ML INSULN.PEN 10 UNIT SC ×3 (07:48→17:47)
[2018-02-15 08:07] VITALS: O2SAT 93
[2018-02-15 11:40] LABS: Bedside Glucose 169 mg/dL (70-110)
[2018-02-15] MEDS: Ferrous Sulfate 325 MG Tablet PO ×2 (12:10→17:46)
[2018-02-15 16:00] VITALS: BP 143/78; PULSE 94; RESP 16; TEMP 37; O2SAT 98
[2018-02-15 17:11] LABS: Bedside Glucose 144 mg/dL (70-110)
[2018-02-15] MEDS: Tamsulosin HCl 0.4 MG Capsule PO (17:46)
[2018-02-15] MEDS: oxyCODONE 5 MG Tablet PO (20:14)
[2018-02-15] MEDS: Atorvastatin Calcium 20 MG Tablet PO (20:15)
[2018-02-15 20:20] VITALS: PULSE 88; RESP 20; O2SAT 97
[2018-02-15 21:21] LABS: Bedside Glucose 160 mg/dL (70-110)
[2018-02-15] MEDS: Doxepin Hcl 25 MG Capsule PO (22:00)
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
[2018-02-16] MEDS: oxyCODONE 5 MG Tablet PO ×3 (01:54→20:21)
[2018-02-16] MEDS: hydrOXYzine PAM 25 MG Capsule PO (02:29)
[2018-02-16] MEDS: Gabapentin 300 MG Capsule PO (02:31)
[2018-02-16] MEDS: Menthol/Lanolin/Calamine/Znox 113 GM Tube 1 APPLIC TOPICAL ×2 (07:05→20:20)
[2018-02-16] MEDS: Pioglitazone Hydrochloride 45 MG Tablet PO (07:05)
[2018-02-16] MEDS: Nystatin Powder 15gm Bottle 1 APPLIC TOPICAL ×2 (07:06→20:21)
[2018-02-16] MEDS: Enoxaparin 30 MG/0.3 ML Syringe SC (07:06)
[2018-02-16 07:48] VITALS: O2SAT 90
[2018-02-16] MEDS: Insulin Lispro 100 UNIT/ML INSULN.PEN 10 UNIT SC ×3 (07:53→18:01)
[2018-02-16] MEDS: Calcium Carb/Vitamin D 1 TABLET Tablet PO (07:53)
[2018-02-16 07:56] LABS: Bedside Glucose 151 mg/dL (70-110)
[2018-02-16 10:00] VITALS: PULSE 104; O2SAT 92
[2018-02-16 11:55] LABS: Bedside Glucose 152 mg/dL (70-110)
[2018-02-16] MEDS: Ferrous Sulfate 325 MG Tablet PO ×2 (12:15→18:00)
--- NOTE | 2018-02-16 13:16 | NURSING ---
Patient has c/o nightmares and confusion at HS. Dr. Sánchez notified, NO to d/c doxepin and start melatonin 10mg PO qHS.
[2018-02-16 15:00] VITALS: BP 141/59; PULSE 104; RESP 18; TEMP 36.9; O2SAT 96
[2018-02-16 16:55] LABS: Bedside Glucose 203 mg/dL (70-110)
[2018-02-16] MEDS: Senna/Docusate Sodium 1 Tablet 2 TABLET PO (18:00)
[2018-02-16] MEDS: Tamsulosin HCl 0.4 MG Capsule PO (18:00)
[2018-02-16] MEDS: MELATONIN 10 MG TABLET PO (20:28)
[2018-02-16] MEDS: Atorvastatin Calcium 20 MG Tablet PO (20:29)
[2018-02-16 21:15] LABS: Bedside Glucose 146 mg/dL (70-110)
[2018-02-16] MEDS: Acetaminophen 500 MG Tablet 1000 MG PO (23:05)
[2018-02-17] MEDS: oxyCODONE 5 MG Tablet PO ×2 (00:32→05:15)
[2018-02-17] MEDS: Gabapentin 300 MG Capsule PO (00:33)
[2018-02-17] MEDS: Nystatin Powder 15gm Bottle 1 APPLIC TOPICAL ×2 (05:15→21:27)
[2018-02-17] MEDS: Senna/Docusate Sodium 1 Tablet 2 TABLET PO ×2 (05:15→17:44)
[2018-02-17] MEDS: Enoxaparin 30 MG/0.3 ML Syringe SC (05:16)
[2018-02-17] MEDS: hydrOXYzine PAM 25 MG Capsule PO ×3 (05:16→23:23)
[2018-02-17] MEDS: Pioglitazone Hydrochloride 45 MG Tablet PO (05:16)
[2018-02-17] MEDS: Menthol/Lanolin/Calamine/Znox 113 GM Tube 1 APPLIC TOPICAL ×2 (05:16→21:24)
[2018-02-17 06:46] LABS: Bedside Glucose 133 mg/dL (70-110)
[2018-02-17 06:54] VITALS: O2SAT 90
[2018-02-17] MEDS: Calcium Carb/Vitamin D 1 TABLET Tablet PO (08:00)
[2018-02-17] MEDS: Insulin Lispro 100 UNIT/ML INSULN.PEN 10 UNIT SC ×3 (08:00→17:46)
[2018-02-17 09:45] VITALS: PULSE 112; RESP 18; O2SAT 91
[2018-02-17 10:51] LABS: Bedside Glucose 163 mg/dL (70-110)
[2018-02-17] MEDS: Ferrous Sulfate 325 MG Tablet PO ×2 (11:53→17:44)
[2018-02-17 15:55] VITALS: BP 121/67; PULSE 99; RESP 20; TEMP 36.7; O2SAT 92
[2018-02-17 17:07] LABS: Bedside Glucose 150 mg/dL (70-110)
[2018-02-17] MEDS: Tamsulosin HCl 0.4 MG Capsule PO (17:44)
[2018-02-17 21:15] LABS: Bedside Glucose 164 mg/dL (70-110)
[2018-02-17] MEDS: Atorvastatin Calcium 20 MG Tablet PO (21:26)
[2018-02-17] MEDS: MELATONIN 10 MG TABLET PO (21:26)
[2018-02-18] MEDS: Acetaminophen 500 MG Tablet 1000 MG PO (04:13)
[2018-02-18] MEDS: Enoxaparin 30 MG/0.3 ML Syringe SC (04:13)
[2018-02-18] MEDS: Senna/Docusate Sodium 1 Tablet 2 TABLET PO ×2 (04:14→17:15)
[2018-02-18] MEDS: Pioglitazone Hydrochloride 45 MG Tablet PO (04:14)
[2018-02-18] MEDS: Nystatin Powder 15gm Bottle 1 APPLIC TOPICAL ×2 (04:15→20:23)
[2018-02-18] MEDS: Menthol/Lanolin/Calamine/Znox 113 GM Tube 1 APPLIC TOPICAL ×2 (04:15→20:23)
[2018-02-18] MEDS: 0.9% NaCl VAD Flush 10 ML IV ×2 (04:19→17:45)
[2018-02-18 04:33] LABS: Absolute Lymphocyte Count 1.72 X10^3/ul (0.83-4.51); Absolute Neutrophil Count 3.8 X10^3/uL (2.0-7.7); Basophil# 0.01 X10^3/uL; Basophil% 0.2 % (0-1); Eosinophil# 0.26 X10^3/uL; Eosinophils% 4.1 % (0-5); Hematocrit 27.6 % (37-47); Hemoglobin 8.5 g/dl (12.0-15.0); Lymphocyte # 1.72 X10^3/ul (4.0); Lymphocyte % 26.9 % (19-41); Mean Corp Hgb Conc 30.8 g/gl (32-36); Mean Corpuscular Hgb 31.7 pg (27.0-32.0); Mean Platelet Vol. 9.1 fl (6.2-12.0); Monocyte# 0.56 X10^3/uL; Monocyte% 8.8 % (0-10); Neutrophil # 3.79 X10^3/uL (2.7-7.7); Neutrophil % 59.2 % (47-70); Platelet Count 232 K/mm3 (150-450); RBC Distribution Width CV 14.9 % (11.6-14.6); RBC Distribution Width SD 54.6 fl (35.1-43.9); Red Blood Count 2.68 M/mm3 (4.2-5.4); White Blood Count 6.4 K/mm3 (4.4-11.0)
[2018-02-18 04:34] LABS: POSITIVE COUNT NO; POSITIVE DIFFERENTIAL NO; POSITIVE MORPHOLOGY NO
[2018-02-18 04:40] LABS: Anion Gap 8 (5-15); BUN 42 mg/dL (7-18); BUN/Creat Ratio 23.9 RATIO (10-20); Calcium,Total 9.1 mg/dL (8.5-10.1); Chloride 103 mmol/L (98-107); Creatinine, Serum 1.76 mg/dL (0.55-1.02); EST Glomerular Filtration Rate 30 mL/min (>60); Est Glom Filt Rate - Afr Amer 36 mL/min (>60); Glucose 141 mg/dL (74-106); Potassium 4.4 mmol/L (3.5-5.1); Sodium Level 141 mmol/L (136-145)
[2018-02-18 06:46] LABS: Bedside Glucose 146 mg/dL (70-110)
[2018-02-18] MEDS: hydrOXYzine PAM 25 MG Capsule PO ×2 (07:20→21:51)
[2018-02-18] MEDS: Insulin Lispro 100 UNIT/ML INSULN.PEN 10 UNIT SC ×3 (08:42→17:46)
[2018-02-18] MEDS: Calcium Carb/Vitamin D 1 TABLET Tablet PO (08:45)
[2018-02-18 11:00] LABS: Bedside Glucose 125 mg/dL (70-110)
[2018-02-18] MEDS: oxyCODONE 5 MG Tablet PO (11:40)
[2018-02-18] MEDS: Ferrous Sulfate 325 MG Tablet PO ×2 (11:41→17:15)
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
[2018-02-18 15:27] VITALS: BP 153/78; PULSE 100; RESP 16; TEMP 36.6; O2SAT 97
[2018-02-18 16:46] LABS: Bedside Glucose 112 mg/dL (70-110)
[2018-02-18] MEDS: Tamsulosin HCl 0.4 MG Capsule PO (17:15)
[2018-02-18] MEDS: Atorvastatin Calcium 20 MG Tablet PO (20:24)
[2018-02-18 20:26] VITALS: PULSE 105; RESP 16; O2SAT 96
[2018-02-18 20:40] LABS: Bedside Glucose 211 mg/dL (70-110)
[2018-02-18] MEDS: MELATONIN 10 MG TABLET PO (21:51)
[2018-02-19] MEDS: Pioglitazone Hydrochloride 45 MG Tablet PO (06:16)
[2018-02-19] MEDS: Senna/Docusate Sodium 1 Tablet 2 TABLET PO ×2 (06:16→16:34)
[2018-02-19] MEDS: Enoxaparin 30 MG/0.3 ML Syringe SC (06:16)
[2018-02-19] MEDS: Nystatin Powder 15gm Bottle 1 APPLIC TOPICAL ×2 (06:19→21:31)
[2018-02-19] MEDS: Menthol/Lanolin/Calamine/Znox 113 GM Tube 1 APPLIC TOPICAL ×2 (06:19→21:31)
[2018-02-19 06:55] LABS: Bedside Glucose 151 mg/dL (70-110)
[2018-02-19] MEDS: Insulin Lispro 100 UNIT/ML INSULN.PEN 10 UNIT SC ×3 (07:51→17:40)
[2018-02-19] MEDS: Calcium Carb/Vitamin D 1 TABLET Tablet PO (07:52)
[2018-02-19 11:30] LABS: Bedside Glucose 176 mg/dL (70-110)
[2018-02-19] MEDS: Ferrous Sulfate 325 MG Tablet PO ×2 (11:53→16:34)
[2018-02-19] MEDS: oxyCODONE 5 MG Tablet PO (11:57)
[2018-02-19 16:00] VITALS: BP 128/71; PULSE 102; RESP 16; TEMP 37; O2SAT 92
[2018-02-19] MEDS: Tamsulosin HCl 0.4 MG Capsule PO (16:34)
[2018-02-19 16:50] LABS: Bedside Glucose 137 mg/dL (70-110)
[2018-02-19 20:56] LABS: Bedside Glucose 147 mg/dL (70-110)
[2018-02-19] MEDS: Atorvastatin Calcium 20 MG Tablet PO (21:32)
[2018-02-19] MEDS: MELATONIN 10 MG TABLET PO (22:54)
[2018-02-20] MEDS: Nystatin Powder 15gm Bottle 1 APPLIC TOPICAL ×2 (04:54→21:07)
[2018-02-20] MEDS: Menthol/Lanolin/Calamine/Znox 113 GM Tube 1 APPLIC TOPICAL ×2 (04:54→21:05)
[2018-02-20] MEDS: Lidocaine 5% Patch 1 PATCH TOPICAL (04:56)
[2018-02-20] MEDS: Enoxaparin 30 MG/0.3 ML Syringe SC (04:57)
[2018-02-20] MEDS: Pioglitazone Hydrochloride 45 MG Tablet PO (04:57)
[2018-02-20] MEDS: Senna/Docusate Sodium 1 Tablet 2 TABLET PO (04:57)
[2018-02-20 06:46] LABS: Bedside Glucose 120 mg/dL (70-110)
[2018-02-20] MEDS: Insulin Lispro 100 UNIT/ML INSULN.PEN 10 UNIT SC ×3 (08:47→17:38)
[2018-02-20] MEDS: Calcium Carb/Vitamin D 1 TABLET Tablet PO (08:47)
[2018-02-20 11:00] LABS: Bedside Glucose 203 mg/dL (70-110)
[2018-02-20] MEDS: Ferrous Sulfate 325 MG Tablet PO ×2 (11:02→17:39)
--- NOTE | 2018-02-20 12:58 | MDS.RN ---
Information for the mds was obtained from review of the clinical record, interview of resident, staff, and direct observation of resident's care.
[2018-02-20 13:11] LABS: Mucous, Urine 0 SEEN /hpf (<or=2+)
[2018-02-20 13:16] LABS: Color, Urine Yellow (Yellow); Glucose, Dipstick Normal (Normal); Ketone-Dipstick Negative (Negative); Leukocyte Esterase-Dipstick 500 /ul (Negative); Nitrite-Dipstick Negative (Negative); Occult Blood-Urine 25 /ul (Negative); Protein-Dipstick 30 mg/dl (Negative); Specific Gravity, Urine 1.015 (1.002-1.030); Urine Bilirubin Dipstick Negative (Negative); Urine Clarity Cloudy (Clear); Urine Urobilinogen Normal (Normal)
[2018-02-20 13:29] LABS: Red Blood Cells-Urine 0-5 SEEN /hpf (0-5); Squamous Epithelial Cells - UA 0-5 SEEN /hpf (5-10); White Blood Cells 25-50 SEEN /hpf (0-5)
[2018-02-20 13:30] LABS: Bacteria 1+ /hpf (None Seen)
--- NOTE | 2018-02-20 15:33 | CASEMGMT ---
Social Work Met with pt in room and discussed d/c plan. Pt is understanding and agreeable to discharge on 02/26/18. Pt spoke with her family and would like to go to [facility] at D/C. Phone call to Irene at [facility] who will review referral. Referral faxed. Will await return call from Irene. Plan: [facility] 02/26/18, pending acceptance JAG Navarro
[2018-02-20 16:00] VITALS: BP 143/82; PULSE 96; RESP 18; TEMP 37.1; O2SAT 94
[2018-02-20 17:00] LABS: Bedside Glucose 102 mg/dL (70-110)
[2018-02-20] MEDS: Tamsulosin HCl 0.4 MG Capsule PO (17:39)
[2018-02-20] MEDS: CEFUROXIME AXETIL 250 MG TABLET 500 MG PO (18:33)
[2018-02-20 20:30] VITALS: PULSE 72; RESP 20; O2SAT 95
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
[2018-02-20] MEDS: oxyCODONE 5 MG Tablet PO (21:06)
[2018-02-20] MEDS: Atorvastatin Calcium 20 MG Tablet PO (21:07)
[2018-02-20 21:11] LABS: Bedside Glucose 221 mg/dL (70-110)
[2018-02-20] MEDS: hydrOXYzine PAM 25 MG Capsule PO (22:32)
[2018-02-20] MEDS: MELATONIN 10 MG TABLET PO (22:32)
[2018-02-21] MEDS: oxyCODONE 5 MG Tablet PO ×3 (01:33→18:28)
--- NOTE | 2018-02-21 01:47 | NURSING ---
Pt is becoming increasingly anxious as night progresses. Given prn oxyir 10mg per request after second time on bedpan in less than 30 minutes. After medication pt asked for ice pack. Given ice pack 'right under my butt' for c/o itching, pt stated she was about to 'scratch it off'. Encouraged not to scratch. Area was cleansed well and dried. Pt called out immediately after to be pulled up in bed and repositioned again, have sheet moved, pillows adjusted. Moaning and tearful this time. Stated she had a headache and was 'very worked up' d/t sister being discharged from facility tomorrow. Did not believe it was 'only 1:30 in the morning' and wanted to get up as she has not been able to sleep. Encouraged rest, given fresh water and linens. Repositioned and medicated as orders allow. Call light within reach. RNs on duty aware. Continuing to monitor.
[2018-02-21] MEDS: Pioglitazone Hydrochloride 45 MG Tablet PO (06:05)
[2018-02-21] MEDS: Menthol/Lanolin/Calamine/Znox 113 GM Tube 1 APPLIC TOPICAL ×2 (06:05→20:34)
[2018-02-21] MEDS: CEFUROXIME AXETIL 250 MG TABLET 500 MG PO ×2 (06:07→17:19)
[2018-02-21] MEDS: Lidocaine 5% Patch 1 PATCH TOPICAL (06:07)
[2018-02-21] MEDS: Enoxaparin 30 MG/0.3 ML Syringe SC (06:09)
[2018-02-21] MEDS: Nystatin Powder 15gm Bottle 1 APPLIC TOPICAL ×2 (06:09→20:35)
[2018-02-21] MEDS: Senna/Docusate Sodium 1 Tablet 2 TABLET PO ×2 (06:10→17:19)
--- NOTE | 2018-02-21 06:17 | NURSING ---
Pt continues to c/o all over pain and discomfort, itching, general complaints. Has been repositioned, given ice and any prn meds available, lidoderm patch applied. Pt does not want to help with staff care attempts and when asked she said she gets too tired and it is 'unsafe' for her to help with rolling or adjusting in bed. RN aware. Continuing to monitor.
[2018-02-21 07:01] LABS: Bedside Glucose 164 mg/dL (70-110)
[2018-02-21] MEDS: Calcium Carb/Vitamin D 1 TABLET Tablet PO (08:30)
[2018-02-21] MEDS: Insulin Lispro 100 UNIT/ML INSULN.PEN 10 UNIT SC ×3 (08:31→18:23)
[2018-02-21 11:15] LABS: Bedside Glucose 142 mg/dL (70-110)
[2018-02-21] MEDS: hydrOXYzine PAM 25 MG Capsule PO (11:16)
[2018-02-21] MEDS: Ferrous Sulfate 325 MG Tablet PO ×2 (11:17→17:20)
--- NOTE | 2018-02-21 13:31 | CASEMGMT ---
Addendum entered by Felicia Carson 02/21/18 13:38: Student SW notes reviewed. JAG Navarro Original Note: Brief interview for mental status (BIMS) and mood (PHQ-9) completed on this day. BIMS score . PHQ-9 score 05/14. Roger Jules social work student
[2018-02-21 16:00] VITALS: BP 137/65; PULSE 95; RESP 16; TEMP 36.8; O2SAT 92
--- NOTE | 2018-02-21 16:27 | NURSING ---
PT COMPLAINED TO THIS THAT SHE HEARS CRACKLES IN SIDE HER EAR. REPORTED TO SYLVAIN COOL
[2018-02-21] MEDS: Tamsulosin HCl 0.4 MG Capsule PO (17:19)
[2018-02-21 17:21] LABS: Bedside Glucose 118 mg/dL (70-110)
[2018-02-21 18:30] VITALS: PULSE 93; RESP 18; O2SAT 96
[2018-02-21] MEDS: Atorvastatin Calcium 20 MG Tablet PO (20:34)
[2018-02-21] MEDS: MELATONIN 10 MG TABLET PO (20:35)
[2018-02-21 21:31] LABS: Bedside Glucose 190 mg/dL (70-110)
[2018-02-22 04:08] VITALS: BP 147/71; PULSE 102; RESP 22; O2SAT 96
[2018-02-22] MEDS: Enoxaparin 30 MG/0.3 ML Syringe SC (04:11)
[2018-02-22] MEDS: CEFUROXIME AXETIL 250 MG TABLET 500 MG PO ×2 (04:11→17:27)
[2018-02-22] MEDS: Lidocaine 5% Patch 1 PATCH TOPICAL (04:12)
[2018-02-22] MEDS: Pioglitazone Hydrochloride 45 MG Tablet PO (04:12)
[2018-02-22] MEDS: Nystatin Powder 15gm Bottle 1 APPLIC TOPICAL ×2 (04:13→20:54)
[2018-02-22] MEDS: Menthol/Lanolin/Calamine/Znox 113 GM Tube 1 APPLIC TOPICAL ×2 (04:13→20:54)
[2018-02-22] MEDS: Senna/Docusate Sodium 1 Tablet 2 TABLET PO ×2 (04:14→17:27)
[2018-02-22] MEDS: Polyethylene Glycol 3350 17 GM PACKET PO (04:14)
[2018-02-22 06:51] LABS: Bedside Glucose 145 mg/dL (70-110)
[2018-02-22] MEDS: Calcium Carb/Vitamin D 1 TABLET Tablet PO (09:09)
[2018-02-22] MEDS: Insulin Lispro 100 UNIT/ML INSULN.PEN 10 UNIT SC ×3 (09:10→18:08)
[2018-02-22 11:16] LABS: Bedside Glucose 194 mg/dL (70-110)
[2018-02-22] MEDS: Ferrous Sulfate 325 MG Tablet PO ×2 (12:04→17:27)
[2018-02-22 15:18] VITALS: BP 137/60; PULSE 97; RESP 16; TEMP 37.1; O2SAT 96
[2018-02-22 16:46] LABS: Bedside Glucose 102 mg/dL (70-110)
[2018-02-22] MEDS: Tamsulosin HCl 0.4 MG Capsule PO (17:27)
[2018-02-22] MEDS: Atorvastatin Calcium 20 MG Tablet PO (20:55)
[2018-02-22] MEDS: MELATONIN 10 MG TABLET PO (20:55)
[2018-02-22 21:16] LABS: Bedside Glucose 170 mg/dL (70-110)
[2018-02-23] MEDS: Acetaminophen 500 MG Tablet 1000 MG PO (05:31)
[2018-02-23] MEDS: Menthol/Lanolin/Calamine/Znox 113 GM Tube 1 APPLIC TOPICAL ×2 (05:31→21:08)
[2018-02-23] MEDS: Lidocaine 5% Patch 1 PATCH TOPICAL (05:32)
[2018-02-23] MEDS: Pioglitazone Hydrochloride 45 MG Tablet PO (05:32)
[2018-02-23] MEDS: Senna/Docusate Sodium 1 Tablet 2 TABLET PO ×2 (05:33→17:35)
[2018-02-23] MEDS: CEFUROXIME AXETIL 250 MG TABLET 500 MG PO ×2 (05:33→17:35)
[2018-02-23] MEDS: Polyethylene Glycol 3350 17 GM PACKET PO (05:33)
[2018-02-23] MEDS: Enoxaparin 30 MG/0.3 ML Syringe SC (05:34)
[2018-02-23] MEDS: Nystatin Powder 15gm Bottle 1 APPLIC TOPICAL ×2 (05:35→21:08)
[2018-02-23 06:51] LABS: Bedside Glucose 140 mg/dL (70-110)
[2018-02-23] MEDS: Calcium Carb/Vitamin D 1 TABLET Tablet PO (08:42)
[2018-02-23] MEDS: Insulin Lispro 100 UNIT/ML INSULN.PEN 10 UNIT SC ×3 (08:42→17:34)
[2018-02-23 11:20] LABS: Bedside Glucose 170 mg/dL (70-110)
[2018-02-23] MEDS: Ferrous Sulfate 325 MG Tablet PO ×2 (11:48→17:33)
[2018-02-23 15:29] VITALS: BP 130/72; PULSE 96; RESP 14; TEMP 36.4; O2SAT 97
[2018-02-23 17:05] LABS: Bedside Glucose 178 mg/dL (70-110)
[2018-02-23] MEDS: Tamsulosin HCl 0.4 MG Capsule PO (17:34)
--- NOTE | 2018-02-23 20:30 | NURSING ---
Patient reported of crackles in right ear. Holding towel over ear. This nurse looked in right ear noted thick sticky yellowish brown cerumen. Soft q tip to just inside ear to remove visible cerumen x 1. Patient reassured that nurses would be notified. Will cont to monitor. Same reported to Jack, RN and Alana RN.
[2018-02-23 20:51] LABS: Bedside Glucose 173 mg/dL (70-110)
[2018-02-23 21:00] VITALS: PULSE 90; RESP 20; O2SAT 93
[2018-02-23] MEDS: Atorvastatin Calcium 20 MG Tablet PO (21:09)
[2018-02-23] MEDS: MELATONIN 10 MG TABLET PO (21:51)
[2018-02-23] MEDS: hydrOXYzine PAM 25 MG Capsule PO (21:52)
[2018-02-24] MEDS: Lidocaine 5% Patch 1 PATCH TOPICAL (06:11)
[2018-02-24] MEDS: Polyethylene Glycol 3350 17 GM PACKET PO (06:12)
[2018-02-24] MEDS: Enoxaparin 30 MG/0.3 ML Syringe SC (06:12)
[2018-02-24] MEDS: CEFUROXIME AXETIL 250 MG TABLET 500 MG PO ×2 (06:13→17:40)
[2018-02-24] MEDS: Menthol/Lanolin/Calamine/Znox 113 GM Tube 1 APPLIC TOPICAL ×2 (06:13→20:09)
[2018-02-24] MEDS: Nystatin Powder 15gm Bottle 1 APPLIC TOPICAL ×2 (06:13→20:10)
[2018-02-24] MEDS: Senna/Docusate Sodium 1 Tablet 2 TABLET PO ×2 (06:13→17:44)
[2018-02-24] MEDS: Pioglitazone Hydrochloride 45 MG Tablet PO (06:14)
[2018-02-24 06:46] LABS: Bedside Glucose 147 mg/dL (70-110)
[2018-02-24] MEDS: Calcium Carb/Vitamin D 1 TABLET Tablet PO (07:49)
[2018-02-24] MEDS: Insulin Lispro 100 UNIT/ML INSULN.PEN 10 UNIT SC ×3 (07:49→17:42)
[2018-02-24 10:56] LABS: Bedside Glucose 174 mg/dL (70-110)
--- NOTE | 2018-02-24 10:56 | NURSING ---
Patient has c/o crackling in right ear. Dr. Sánchez in to see, NO for debrox drops. Patient aware.
--- NOTE | 2018-02-24 11:17 | NURSING ---
Patient has next procrit injection on 02/26/18 at 1100 at infusion center.
[2018-02-24] MEDS: Ferrous Sulfate 325 MG Tablet PO ×2 (11:57→17:40)
[2018-02-24] MEDS: Carbamide Peroxide 15 ML Bottle 5 DRP OTIC (11:58)
[2018-02-24 15:24] VITALS: BP 119/67; PULSE 107; RESP 16; TEMP 36.8; O2SAT 95
--- NOTE | 2018-02-24 15:30 | CASEMGMT ---
Social Work Telephone call to [place] at [facility]. Resident has been accepted and plan is for resident to discharge on 02/26/18 to the skilled unit. Spoke with resident in room. This bilingual social worker communicating above information. Resident agreeable to discharge plan. Resident also requesting for transportation to be set up via wheelchair. Resident reporting to notify resident family in regards to discharge plan. Support given. Telephone call to [place]. Transportation set up for 02/26/18 at 2:00pm. Transportation form completed and placed with resident discharge information. PASRR completed in [facility]. Discharge information and PASRR results faxed to [facility]. Proposed discharge date: 02/26/18 PLAN: Discharge to [facility] - Skilled. JAG Li, ASSOCIATE STORE MANAGER
[2018-02-24 17:00] LABS: Bedside Glucose 121 mg/dL (70-110)
[2018-02-24] MEDS: Tamsulosin HCl 0.4 MG Capsule PO (17:41)
[2018-02-24] MEDS: Atorvastatin Calcium 20 MG Tablet PO (20:08)
[2018-02-24 20:11] VITALS: PULSE 106; RESP 18; O2SAT 94
[2018-02-24 21:11] LABS: Bedside Glucose 143 mg/dL (70-110)
[2018-02-24] MEDS: MELATONIN 10 MG TABLET PO (22:56)
[2018-02-25] MEDS: oxyCODONE 5 MG Tablet PO ×2 (00:30→20:34)
[2018-02-25] MEDS: CEFUROXIME AXETIL 250 MG TABLET 500 MG PO ×2 (05:29→17:44)
[2018-02-25] MEDS: Pioglitazone Hydrochloride 45 MG Tablet PO (05:29)
[2018-02-25] MEDS: Senna/Docusate Sodium 1 Tablet 2 TABLET PO ×2 (05:29→17:44)
[2018-02-25] MEDS: Enoxaparin 30 MG/0.3 ML Syringe SC (05:30)
[2018-02-25] MEDS: Nystatin Powder 15gm Bottle 1 APPLIC TOPICAL ×2 (05:30→20:35)
[2018-02-25] MEDS: Menthol/Lanolin/Calamine/Znox 113 GM Tube 1 APPLIC TOPICAL ×2 (05:30→20:34)
[2018-02-25] MEDS: Lidocaine 5% Patch 1 PATCH TOPICAL (05:33)
[2018-02-25 06:45] LABS: Bedside Glucose 153 mg/dL (70-110)
[2018-02-25] MEDS: Insulin Lispro 100 UNIT/ML INSULN.PEN 10 UNIT SC ×3 (08:31→17:46)
[2018-02-25] MEDS: Calcium Carb/Vitamin D 1 TABLET Tablet PO (08:31)
[2018-02-25 09:45] VITALS: PULSE 106; RESP 18; O2SAT 95
[2018-02-25 11:46] LABS: Bedside Glucose 153 mg/dL (70-110)
[2018-02-25] MEDS: Ferrous Sulfate 325 MG Tablet PO ×2 (11:47→17:44)
[2018-02-25 15:19] VITALS: BP 129/77; PULSE 106; RESP 16; TEMP 36.6; O2SAT 95
--- NOTE | 2018-02-25 15:21 | NURSING ---
THIS NURSE NOTICED A SMALL SORE ON TOP OF PT HEAD. PT STATED IT HURTS WHEN TOUCHED. REPORTED TO SYLVAIN COOL
[2018-02-25 17:05] LABS: Bedside Glucose 115 mg/dL (70-110)
[2018-02-25] MEDS: Tamsulosin HCl 0.4 MG Capsule PO (17:44)
[2018-02-25] MEDS: Atorvastatin Calcium 20 MG Tablet PO (20:35)
[2018-02-25 21:16] LABS: Bedside Glucose 155 mg/dL (70-110)
[2018-02-25] MEDS: hydrOXYzine PAM 25 MG Capsule PO (23:04)
[2018-02-25] MEDS: MELATONIN 10 MG TABLET PO (23:04)
[2018-02-26] MEDS: oxyCODONE 5 MG Tablet PO ×2 (02:30→13:25)
[2018-02-26 06:07] LABS: Hematocrit 30.2 % (37-47); Hemoglobin 9.5 g/dl (12.0-15.0)
[2018-02-26] MEDS: Lidocaine 5% Patch 1 PATCH TOPICAL (06:17)
[2018-02-26] MEDS: Menthol/Lanolin/Calamine/Znox 113 GM Tube 1 APPLIC TOPICAL (06:18)
[2018-02-26] MEDS: CEFUROXIME AXETIL 250 MG TABLET 500 MG PO (06:18)
[2018-02-26] MEDS: Pioglitazone Hydrochloride 45 MG Tablet PO (06:18)
[2018-02-26] MEDS: Nystatin Powder 15gm Bottle 1 APPLIC TOPICAL (06:19)
[2018-02-26] MEDS: Enoxaparin 30 MG/0.3 ML Syringe SC (06:19)
[2018-02-26] MEDS: Senna/Docusate Sodium 1 Tablet 2 TABLET PO (06:19)
[2018-02-26 07:06] LABS: Bedside Glucose 157 mg/dL (70-110)
[2018-02-26] MEDS: hydrOXYzine PAM 25 MG Capsule PO (07:41)
[2018-02-26] MEDS: Calcium Carb/Vitamin D 1 TABLET Tablet PO (07:45)
[2018-02-26] MEDS: Insulin Lispro 100 UNIT/ML INSULN.PEN 10 UNIT SC ×2 (07:49→12:25)
[2018-02-26 12:05] LABS: Bedside Glucose 119 mg/dL (70-110)
[2018-02-26] MEDS: Ferrous Sulfate 325 MG Tablet PO (12:24)
[2018-02-26 13:38] VITALS: PULSE 103; RESP 18; O2SAT 95
--- NOTE | 2018-02-26 14:24 | NURSING ---
report called to jadon at [facility]
[2018-02-26 14:44] VITALS: BP 144/79; PULSE 105; RESP 20; TEMP 37.1; O2SAT 100
--- NOTE | 2018-02-28 10:55 | MDS.RN ---
Information for the mds was obtained from review of the clinical record, interview of resident, staff, and direct observation of resident's care. resident remained non-ambulatory during this lookback period, req one assist while in W/C.
== END 2018-02-26 14:05 | disposition skilled nursing facility (03) | DRG 560 ==
PROVIDERS: Podiatrist; Admitting Provider Family Medicine Geriatric Medicine; Family Provider Internal Medicine; PCP Internal Medicine; Referring Provider Family Medicine Geriatric Medicine; Visit Provider Family Medicine Geriatric Medicine
DX: S82.851E Displaced trimalleolar fracture of right lower leg, subsequent encounter for open fracture type I or II with routine healing (principal); N18.4 Chronic kidney disease, stage 4 (severe); V49.9XXD Car occupant (driver) (passenger) injured in unspecified traffic accident, subsequent encounter; E78.5 Hyperlipidemia, unspecified; D50.9 Iron deficiency anemia, unspecified; E11.21 Type 2 diabetes mellitus with diabetic nephropathy; E11.22 Type 2 diabetes mellitus with diabetic chronic kidney disease; I12.9 Hypertensive chronic kidney disease with stage 1 through stage 4 chronic kidney disease, or unspecified chronic kidney disease; D63.8 Anemia in other chronic diseases classified elsewhere; E55.9 Vitamin D deficiency, unspecified; G47.33 Obstructive sleep apnea (adult) (pediatric)
CPT/HCPCS: 36415; 80048; 80053; 81001; 82962; 85014; 85018; 85025; 87077; 87086; 87088; 87184; 87186; 97110; 97163; 97166; 97530; 97535; 97802; J0885; J7030; J7120; A4216

== ENCOUNTER → 2018-01-29 11:09 | Outpatient (CLI) | payer MEDICARE, OTHER, SELFPAY ==
[2018-01-27 16:00] VITALS: BMI 50.3
[2018-01-29 11:14] VITALS: BP 154/72
--- NOTE | 2018-01-29 11:16 | NURSING ---
patient is currently on TCU. brought down to this unit for injection. Blood pressure documented. patient returned to TCU with kiss machine operator.
== END ==
PROVIDERS: Family Provider Internal Medicine; PCP Internal Medicine; Referring Provider Internal Medicine Nephrology; Visit Provider Internal Medicine Nephrology
DX: N18.3 Chronic kidney disease, stage 3 (moderate) (principal); D63.1 Anemia in chronic kidney disease
CPT/HCPCS: 96372; J0885

== ENCOUNTER 2018-02-04 13:00 | Day surgery (SDC) | payer MEDICARE, OTHER, SELFPAY ==
[2018-01-29 11:34] VITALS: BMI 46.0
[2018-02-04] VITALS (8 sets, daily range): BP systolic 102–149; BP diastolic 51–74; PULSE 94–98; RESP 16–18; TEMP 36.4–36.8; O2SAT 92–100; BMI 50.3
[2018-02-04] MEDS: Cefazolin 2 GM in 0.9% Normal Saline 100 ML IV (13:14)
--- NOTE | 2018-02-04 13:35 | RAD_ITS ---
STUDY: X-RAY - RIGHT ANKLE REASON FOR EXAM: Female, 72 years old. Intraoperative assessment TECHNIQUE: Four limited view(s) of the ankle were obtained. COMPARISON: January 24, 2018 FINDINGS: Limited views of the right ankle again show a plate and screws along the distal fibula. Hardware is again seen in the lateral mid foot. Hardware is now present along the medial malleolus. There is diffuse soft tissue swelling. Fluoroscopy time 71.7 seconds. Cumulative dose 2.77 mGy. RAD/Ankle min 3 Views IMPRESSION: Limited views of the right ankle were obtained intraoperatively during fracture fixation. Electronically Signed: Marly Best MD at 19:46 EST Tel Direct: [phone], Service support ,
--- NOTE | 2018-02-04 16:05 | RAD_ITS ---
STUDY: X-RAY - RIGHT ANKLE REASON FOR EXAM: Female, 72 years old. Status post ORIF TECHNIQUE: 3 view(s) of the ankle. COMPARISON: Prereduction study of 01/23/2018 FINDINGS: There is an internal fixation plate with multiple screws of the distal aspect of the fibula. There is internal fixation with screws and what is reported to be tension band technique of a previously noted medial malleolar fracture. Osseous detail is viewed through cast material. Fractures appear in excellent alignment. Additional orthopedic hardware is seen involving the distal calcaneus and proximal tarsal row. This is associated with previous procedure. RAD/Ankle min 3 Views IMPRESSION: Status post internal fixation of distal fibular and medial malleolar fractures, appearing in excellent alignment. Electronically Signed: Zain De Los Santos MD at 18:26 EST , Service support ,
[2018-02-04 17:25] LABS: Bedside Glucose 168 mg/dL (70-110)
[2018-02-04 21:25] LABS: Bedside Glucose 224 mg/dL (70-110)
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
== END 2018-02-04 17:23 | disposition skilled nursing facility (03) ==
LOC: SDC 13:02 → AC 13:02
PROVIDERS: Family Provider Internal Medicine; PCP Internal Medicine; Referring Provider Podiatrist; Visit Provider Podiatrist
PROC: (CPT 27766; principal; 2018-02-04 13:15)
DX: S82.51XB Displaced fracture of medial malleolus of right tibia, initial encounter for open fracture type I or II (principal); S82.851E Displaced trimalleolar fracture of right lower leg, subsequent encounter for open fracture type I or II with routine healing; V89.2XXA Person injured in unspecified motor-vehicle accident, traffic, initial encounter; Y93.9 Activity, unspecified; Y92.9 Unspecified place or not applicable; Y99.9 Unspecified external cause status; I12.9 Hypertensive chronic kidney disease with stage 1 through stage 4 chronic kidney disease, or unspecified chronic kidney disease; E11.22 Type 2 diabetes mellitus with diabetic chronic kidney disease; N18.4 Chronic kidney disease, stage 4 (severe); E11.40 Type 2 diabetes mellitus with diabetic neuropathy, unspecified; D50.9 Iron deficiency anemia, unspecified; D63.8 Anemia in other chronic diseases classified elsewhere; E78.5 Hyperlipidemia, unspecified; E55.9 Vitamin D deficiency, unspecified; E58 Dietary calcium deficiency; G47.33 Obstructive sleep apnea (adult) (pediatric); K21.9 Gastro-esophageal reflux disease without esophagitis; E66.9 Obesity, unspecified; Z68.43 Body mass index [BMI] 50.0-59.9, adult; Z78.0 Asymptomatic menopausal state; Z86.718 Personal history of other venous thrombosis and embolism; Z87.891 Personal history of nicotine dependence
CPT/HCPCS: 01480; 27766; 64445; 73610; 76000; 82962; C1713; A4216

== ENCOUNTER → 2018-02-26 11:20 | Outpatient (CLI) | payer MEDICARE, OTHER, SELFPAY ==
[2018-01-29 11:34] VITALS: BMI 46.0
[2018-02-04 12:49] VITALS: BMI 50.3
[2018-02-26 11:21] VITALS: BP 162/100; PULSE 97; RESP 16; TEMP 36.2; O2SAT 97; BMI 48.6
--- OUTSIDE RECORDS SUMMARY | 2018-04-14 14:13 | XMS RPT_ITS ---
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 ADMIN OF INFLUENZA VACCINE - INFLUENZA SEASONAL HIGH DOSE AGE 65+ 3. Other hyperlipidemia - ICD9: 272.4, ICD10: E78.49 - good control - Continue current medication. - SIMVASTATIN 40 MG TABLET 4. DDD (degenerative disc disease), thoracolumbar - ICD9: 722.51, ICD10: M51.35 Restart 300 mg at bedtime. Discussed medication dosage, usage, goals of therapy, and side effects. - GABAPENTIN 300 MG CAPSULE 5. Essential hypertension - ICD9: 401.9, ICD10: I10 - Poor control - LOSARTAN 100 MG TABLET. Take one(1) tablet daily. Dose increased. 6. Type 2 diabetes mellitus with stage 4 chronic kidney disease, with long-term current use of insulin (HCC) - ICD9: 250.40, 585.4, V58.67, ICD10: E11.22, N18.4, Z79.4 Controlled. - Continue current medications - HEMOGLOBIN A1C (POC) MD Jesenia De Jesus LPN 01/01/2018 3:00 PM Signed Influenza Vaccine Documentation: ? Patient is identified by name and date of : Yes ? Patient is older than 6 months of age: Yes ? Patient denies a severe allergy to any vaccine component or to a previous dose of influenza vaccine: Yes FOR EGG ALLERGY CONCERNS, REFER TO PROVIDER. ? Denies allergy to gelatin, formaldehyde, thimerosol :Yes ? Patient is afebrile and not moderately or severely ill: Yes ? Does the patient have a history of Guillain ?Shafer Syndrome (a severe paralytic illness): No ? Denies bone marrow transplant prior 6 months or solid organ transplant prior 3 months: Yes ? Denies a history of fainting after a prior injection or medical procedure? Yes If patient has fainted in the past, the CDC recommends sitting or lying down for 15 minutes after the vaccination. ? VIS sheet provided: Yes ? See Immunization Form in [facility] for details of immunizations administered today. If patient reports dizziness, vision changes or ringing in the ears post vaccination ? please have patient sit or lie down for 15 minutes. Referring Provider: NEEL TURPIN [[id number]] Allergies As of Date: 01/01/2018 Noted Allergy Reaction LEVAQUIN (LEVOFLOXACIN) 12/29/2004 Comments: itching,diarrhea,dausea,burning skin SEASONAL ALLERGIES 08/19/2014 14 - Other: See Comments Comments: Sinus SULFA (SULFONAMIDE ANTIBIOTICS) 12/29/2004 Comments: rash and hives Date Reviewed: 01/01/2018 Reviewed by: Jesenia Glasgow LPN - Fully Assessed Reason for Visit: F/U 6 Month [444] Primary Visit Diagnosis:Rotator cuff syndrome, right [M75.101] Other Visit Diagnoses:Need for vaccination [Z23] Other hyperlipidemia [E78.49] DDD (degenerative disc disease), thoracolumbar [M51.35] Essential hypertension [I10] Type 2 diabetes mellitus with stage 4 chronic kidney disease, with long-term current use of insulin (HCC) [E11.22, N18.4, Z79.4] Order(s):ADMIN OF INFLUENZA VACCINE [[id number]] Order #: [id number]: 1 INFLUENZA SEASONAL HIGH DOSE AGE 65+ [14963GOB] Order #: [id number] simvastatin (ZOCOR) 40 mg tabletTake 1 tablet by mouth daily at bedtime. For cholesterol.Disp: 30 tabletRfl: 5 gabapentin (NEURONTIN) 300 mg capsuleTake 1 capsule by mouth daily at bedtime for 180 days.Disp: 30 capsuleRfl: 5 predniSONE (DELTASONE) 10 mg tabletTake 4 tabs daily x 3 days, then 3 tabs x 3 days, 2 tabs x 3 days, then 1 tab x3 days with food.Disp: 30 tabletRfl: 0 CONSULT TO PHYSICAL THERAPY [9032] Order #: [id number]: 1 HEMOGLOBIN A1C (POC) [[id number]] Order #: [id number]. #:[id number] losartan (COZAAR) 100 mg tabletTake 1 tablet by mouth once daily.Disp: 30 tabletRfl: 5 CONSULT TO NON-CCF FACILITY [[id number]] Order #: [id number] [facility] [[id number]] Order #: [id number] Prescriptions as of 01/01/2018 Sig: SIMVASTATIN 40 MG TABLET Take 1 tablet by mouth daily * PIOGLITAZONE 45 MG TABLET Take 1 tablet by mouth once d* INSULIN GLARGINE (U-100) 100 * Inject 35 Units subcutaneousl* COMPOUNDED PRESCRIPTION Take 1 tablet by mouth twice * PEN NEEDLE, DIABETIC 29 GAUGE* Use once daily as directed. * GLIMEPIRIDE 4 MG TABLET Take 1 tablet by mouth daily * BLOOD SUGAR DIAGNOSTIC STRIPS Test blood sugar(s) 2 times d* Patient taking differently: 1 Each. Test blood sugar(s) 2* CALCITRIOL 0.25 MCG CAPSULE Take 1 capsule by mouth once * FEXOFENADINE 180 MG TABLET Take 1 tablet by mouth once d* * EPOETIN ZARI 10,000 UNIT/ML I* Inject 10,000 Units subcutane* * OCUVITE TABLET Take one(1) tablet daily. * FREESTYLE LANCETS 28 GAUGE Test twice daily 250.02 GABAPENTIN 300 MG CAPSULE Take 1 capsule by mouth daily* PREDNISONE 10 MG TABLET Take 4 tabs daily x 3 days, t* LOSARTAN 100 MG TABLET Take 1 tablet by mouth once d* COMPOUNDED PRESCRIPTION Take 1 tablet by mouth twice * Medication notes this encounter BLOOD SUGAR DIAGNOSTIC STRIPS >> Jesenia Glasgow TECHNOLOGY ANALYST 01/01/2018 2:00 PM >> JESENIA GLASGOW LPN SatJan 01, 2018 2:00 PM Patient testing blood sugar(s) x1 daily. FEXOFENADINE 180 MG TABLET >> Jesenai Glasgow TECHNOLOGY ANALYST 01/01/2018 2:02 PM >> JESENIA GLASGOW LPN SatJan 01, 2018 2:02 PM PRN Problem List As Of Date 01/01/2018 Noted Resolved Essential hypertension [I10] GENERAL OSTEOARTHROSIS [M15.9] ALLERGIC RHINITIS D/T ANIMAL [J30.81] Hyperlipemia [E78.5] Acute bronchitis [J20.9] 06/01/2010 Chest pain, unspecified [R07.9] 06/01/2010 Cough [R05] 06/01/2010 Type II diabetes mellitus with renal manifestat*INVALID FOR* More... Obesity, Class III, BMI 40-49.9 (morbid obesity*INVALID FOR* More... CKD (chronic kidney disease) stage 4, GFR 15-29*INVALID FOR* More... Anemia [D64.9] INVALID FOR* More... 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 Lytic lesion of bone on x-ray [M89.9] INVALID FOR*06/17/2017 More... Controlled type 2 diabetes mellitus without com*INVALID FOR*06/17/2017 Nonexudative age-related macular degeneration, *INVALID FOR* Pseudophakia, both eyes [Z96.1] INVALID FOR*06/17/2017 Posterior capsule opacification [H26.499] INVALID FOR* Vitreous floaters of both eyes [H43.393] INVALID FOR*06/17/2017 Regular astigmatism, bilateral [H52.223] INVALID FOR*06/17/2017 DDD (degenerative disc disease), thoracolumbar *INVALID FOR* More... Controlled diabetes mellitus type 1 without com*INVALID FOR* Visit Notes: >> Jesenia Glasgow TECHNOLOGY ANALYST SatJan 01, 2018 2:59 PM Status: Signed Influenza Vaccine Documentation: ? Patient is identified by name and date of : Yes ? Patient is older than 6 months of age: Yes ? Patient denies a severe allergy to any vaccine component or to a previous dose of influenza vaccine: Yes FOR EGG ALLERGY CONCERNS, REFER TO PROVIDER. ? Denies allergy to gelatin, formaldehyde, thimerosol :Yes ? Patient is afebrile and not moderately or severely ill: Yes ? Does the patient have a history of Guillain ?Shafer Syndrome (a severe paralytic illness): No ? Denies bone marrow transplant prior 6 months or solid organ transplant prior 3 months: Yes ? Denies a history of fainting after a prior injection or medical procedure? Yes If patient has fainted in the past, the CDC recommends sitting or lying down for 15 minutes after the vaccination. ? VIS sheet provided: Yes ? See Immunization Form in [facility] for details of immunizations administered today. If patient reports dizziness, vision changes or ringing in the ears post vaccination ? please have patient sit or lie down for 15 minutes. Prescriptions ordered this encounter Disp Refills Start End SIMVASTATIN 40 MG TABLET 30 t* 5 01/01/2018 Class: Print RX Route: ORAL Sig: Take 1 tablet by mouth daily at bedtime. For cholesterol. GABAPENTIN 300 MG CAPSULE 30 c* 5 01/01/2018 06/30/2018 Route: ORAL Sig: Take 1 capsule by mouth daily at bedtime for 180 days. PREDNISONE 10 MG TABLET 30 t* 0 01/01/2018 01/13/2018 Sig: Take 4 tabs daily x 3 days, then 3 tabs x 3 days, 2 tabs x 3 days, then 1 tab x3 days with food. LOSARTAN 100 MG TABLET 30 t* 5 01/01/2018 Route: ORAL Sig: Take 1 tablet by mouth once daily. Medications Discontinued During This Encounter gabapentin (NEURONTIN) 300 mg capsule 01/01/2018 Class: Historical Med Route: ORAL Sig: Take 300 mg by mouth twice daily. Disc: Duplicate Entry simvastatin (ZOCOR) 40 mg tablet 30 t* 5 08/14/2017 01/01/2018 Route: ORAL Sig: Take 1 tablet by mouth daily at bedtime. For cholesterol. Disc: Reason for discontinue is not on file. losartan (COZAAR) 50 mg tablet 30 t* 11 06/17/2017 01/01/2018 Route: ORAL Sig: Take 1 tablet by mouth once daily. Disc: Reason for discontinue is not on file. Disposition: Return in about 6 months (around 07/02/2018). Follow-up and Disposition History Recorded Encounter Status:Closed by NEEL TURPIN MD on 01/01/18 HH, HEMOGLOBIN AND Collected: 01/01/2018 Status: F Source: [place] [facility] 10:51 AM [facility] REPOSITORY TYPE CODE TESTS RESULT OUT OF RANGE REFERENCE UNITS LAB L100.1300 12.0-15.0 g/dl Low HGB 10.3 LAB L100.1400 37-47 % Low HCT 32.4 Performed By: #### L100.0600 #### [facility] [address] [place], [address] RENAL PROFILE Collected: 01/01/2018 Status: F Source: [place] 10:51 AM [facility] REPOSITORY TYPE CODE TESTS RESULT OUT OF RANGE REFERENCE UNITS LAB L501.0100 74-106 mg/dL High GLU 134 Result Comment: Fasting Glucose result greater than or equal to 126 mg/dL suggests DIABETES MELLITUS per A.D.A. criteria. Please note revised GLUCOSE reference range effective 2017. LAB L501.1000 7-18 mg/dL High BUN 34 LAB L501.1100 0.55-1.02 mg/dL High CREAT,SERUM 1.95 Result Comment: The validity of the calculated GFR AND GFRAA in patients over 70 years has not been determined. Clinical correlation is essential. LAB L501.1110 >60 mL/min Low EST GFR 27 Result Comment: Non- GFR Calc LAB L501.1115 >60 mL/min Low EST GFR - AA 32 Result Comment: GFR Calc LAB L501.1255 ml/min Normal Estimated CRCL 21.25 LAB L501.1300 10-20 RATIO Normal BUN/CRE 17.4 LAB L501.1800 3.2-5. g/dL Normal 0 ALB 3.5 LAB L501.2200 8.5-10 mg/dL Normal .1 CA 9.0 LAB L501.2300 2.5-4. mg/dL Normal 9 PHOS 3.2 LAB L501.5300 136-14 mmol/L Normal 5 NA 140 LAB L501.5600 3.5-5. mmol/L Normal 1 K 4.5 LAB L501.5900 98-107 mmol/L Normal CL 107 LAB L501.6100 21.0-3 mmol/L Normal 2.0 CO2 25.0 Performed By: #### L500.3600 #### [facility] [place], [address] CNPTOUTREA Observed: 12/17/2017 Status: COMPLETED Source: [place] 12:00 AM [facility] REPOSITORY Patient Outreach (FAMPST) VAL HERBERT ([id number]) 1945 F Date Time Provider Department 12/17/17 [facility] During your visit today, we recorded the following information about you: Allergies As of Date: 12/17/2017 Noted Allergy Reaction LEVAQUIN (LEVOFLOXACIN) 12/29/2004 Comments: itching,diarrhea,dausea,burning skin SEASONAL ALLERGIES 08/19/2014 14 - Other: See Comments Comments: Sinus SULFA (SULFONAMIDE ANTIBIOTICS) 12/29/2004 Comments: rash and hives Date Reviewed: 10/24/2017 Reviewed by: Kaleb Vickers II - Fully Assessed Visit Diagnosis:Medication management [Z79.899] Order(s):CBC [SQCBC] Order #: [id number] FUTURE BASIC METABOLIC PNL [SQBMP] Order #: [id number] FUTURE ALBUMIN/CREAT RATIO RND UR [SQUACR] Order #: [id number] FUTURE HGB A1C [TGHRX4B] Order #: [id number] FUTURE LIPID PANEL BASIC [SQLIPB] Order #: [id number] FUTURE Prescriptions as of 12/17/2017 Sig: PIOGLITAZONE 45 MG TABLET Take 1 tablet by mouth once d* INSULIN GLARGINE (U-100) 100 * Inject 35 Units subcutaneousl* X SIMVASTATIN 40 MG TABLET Take 1 tablet by mouth daily * COMPOUNDED PRESCRIPTION Take 1 tablet by mouth twice * COMPOUNDED PRESCRIPTION Take 1 tablet by mouth twice * X LOSARTAN 50 MG TABLET Take 1 tablet by mouth once d* PEN NEEDLE, DIABETIC 29 GAUGE* Use once daily as directed. * X GLIMEPIRIDE 4 MG TABLET Take 1 tablet by mouth daily * X GABAPENTIN 300 MG CAPSULE Take 300 mg by mouth twice da* BLOOD SUGAR DIAGNOSTIC STRIPS Test blood sugar(s) 2 times d* Patient taking differently: 1 Each. Test blood sugar(s) 2* CALCITRIOL 0.25 MCG CAPSULE Take 1 capsule by mouth once * FEXOFENADINE 180 MG TABLET Take 1 tablet by mouth once d* * EPOETIN ZARI 10,000 UNIT/ML I* Inject 10,000 Units subcutane* * OCUVITE TABLET Take one(1) tablet daily. * FREESTYLE LANCETS 28 GAUGE Test twice daily 250.02 Problem List As Of Date 12/17/2017 Noted Resolved Essential hypertension [I10] GENERAL OSTEOARTHROSIS [M15.9] ALLERGIC RHINITIS D/T ANIMAL [J30.81] Hyperlipemia [E78.5] Acute bronchitis [J20.9] 06/01/2010 Chest pain, unspecified [R07.9] 06/01/2010 Cough [R05] 06/01/2010 Type II diabetes mellitus with renal manifestat*INVALID FOR* More... Obesity, Class III, BMI 40-49.9 (morbid obesity*INVALID FOR* More... CKD (chronic kidney disease) stage 4, GFR 15-29*INVALID FOR* More... Anemia [D64.9] INVALID FOR* More... 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 Lytic lesion of bone on x-ray [M89.9] INVALID FOR*06/17/2017 More... Controlled type 2 diabetes mellitus without com*INVALID FOR*06/17/2017 Nonexudative age-related macular degeneration, *INVALID FOR* Pseudophakia, both eyes [Z96.1] INVALID FOR*06/17/2017 Posterior capsule opacification [H26.499] INVALID FOR* Vitreous floaters of both eyes [H43.393] INVALID FOR*06/17/2017 Regular astigmatism, bilateral [H52.223] INVALID FOR*06/17/2017 DDD (degenerative disc disease), thoracolumbar *INVALID FOR* More... Controlled diabetes mellitus type 1 without com*INVALID FOR* Encounter Status:Closed by EPIC, PRODUSER on 01/17/18 HH, HEMOGLOBIN AND Collected: 12/04/2017 Status: F Source: [place] [facility] 10:49 AM [facility] REPOSITORY TYPE CODE TESTS RESULT OUT OF RANGE REFERENCE UNITS LAB L100.1300 12.0-15.0 g/dl Low HGB 10.5 LAB L100.1400 37-47 % Low HCT 32.2 Performed By: #### L100.0600 #### [facility] [address] [place], [place], [id number] HH, HEMOGLOBIN AND Collected: 11/20/2017 Status: F Source: [place] [facility] 10:17 AM [facility] REPOSITORY TYPE CODE TESTS RESULT OUT OF RANGE REFERENCE UNITS LAB L100.1300 12.0-15.0 g/dl Low HGB 10.6 LAB L100.1400 37-47 % Low HCT 33.0 Performed By: #### L100.0600 #### [facility] [address] [place], [place], [id number] RENAL PROFILE Collected: 11/20/2017 Status: F Source: [place] 10:17 AM [facility] REPOSITORY TYPE CODE TESTS RESULT OUT OF RANGE REFERENCE UNITS LAB L501.0100 74-106 mg/dL Normal GLU 88 Result Comment: Please note revised GLUCOSE reference range effective 2017. LAB L501.1000 7-18 mg/dL High BUN 36 LAB L501.1100 0.55-1.02 mg/dL High CREAT,SERUM 1.80 Result Comment: The validity of the calculated GFR AND GFRAA in patients over 70 years has not been determined. Clinical correlation is essential. LAB L501.1110 >60 mL/min Low EST GFR 29 Result Comment: Non- GFR Calc LAB L501.1115 >60 mL/min Low EST GFR - AA 35 Result Comment: GFR Calc LAB L501.1300 10-20 RATIO Normal BUN/CRE 20.0 LAB L501.1800 3.2-5.0 g/dL Normal ALB 3.5 LAB L501.2200 8.5-10.1 mg/dL CA Normal 8.9 LAB L501.2300 2.5-4.9 mg/dL Normal PHOS 3.4 LAB L501.5300 136-145 mmol/L NA Normal 144 LAB L501.5600 3.5-5.1 mmol/L K Normal 4.6 LAB L501.5900 98-107 mmol/L High CL 109 LAB L501.6100 21.0-32.0 mmol/L Normal CO2 25.0 Performed By: #### L500.3600 #### [facility] [address] [place], [address] HH, HEMOGLOBIN AND Collected: 11/06/2017 Status: F Source: [place] [facility] 10:55 AM [facility] REPOSITORY TYPE CODE TESTS RESULT OUT OF RANGE REFERENCE UNITS LAB L100.1300 12.0-15.0 g/dl Low HGB 10.7 LAB L100.1400 37-47 % Low HCT 34.1 Performed By: #### L100.0600 #### [facility] [address] [place], [address] PROGRESS Observed: 10/24/2017 Status: COMPLETED Source: [place] 11:52 AM [facility] REPOSITORY HNO ID: [id number] Author: Kaleb Vickers II Service: (none) Author Type: [employer] Type: Progress Notes Filed: 10/24/2017 11:56 AM Note Text: ASSESSMENT/PLAN: 1. Advanced atrophic nonexudative age-related macular degeneration of both eyes without subfoveal involvement - ICD9: 362.51, ICD10: H35.3133 (primary diagnosis) Geographic macular atrophy L>R progressing slowly. AREDS 2 supplementation, smoking, Amsler grid testing, and warnings regarding the transformation from dry to the wet form of macular degeneration were discussed with patient. Continue retinal consult as instructed. 2. Controlled diabetes mellitus type 1 without complications (HCC) - ICD9: 250.01, ICD10: E10.9 Examination shows no ocular diabetic complications today. Discussed need for optimal diabetes control to minimize chance of ocular complications. Advise patient to immediately report worsening in status or additional symptoms. Continue yearly dilated eye examinations. 3. Myopia, bilateral - ICD9: 367.1, ICD10: H52.13 4. Regular astigmatism of both eyes - ICD9: 367.21, ICD10: H52.223 Shift in glasses power demonstrated to patient. Update glasses to maximize visual performance. 5. Pseudophakia, both eyes - ICD9: V43.1, ICD10: Z96.1 Posterior chamber intraocular lenses are well positioned and clear. I have confirmed and edited as necessary the relevant ophthalmic history, review of systems, surgical history, and ophthalmological examination findings as obtained by the ophthalmic technical staff. I have seen and examined Val Herbert. I have discussed the examination findings, diagnosis, and treatment options with the patient and/or the patient's family. I have also reviewed and agree with the assessment and plan as stated above and agree with all its relevant components. I gave the patient the opportunity to ask questions about the findings, diagnosis, and treatment options. Kaleb Vickers, II, OD HH, HEMOGLOBIN AND Collected: 10/23/2017 Status: F Source: [place] [facility] 10:51 AM [facility] REPOSITORY TYPE CODE TESTS RESULT OUT OF RANGE REFERENCE UNITS LAB L100.1300 12.0-15.0 g/dl Low HGB 10.4 LAB L100.1400 37-47 % Low HCT 33.4 Performed By: #### L100.0600, L500.3600, L503.6030, L503.6550 #### [facility] [address] [place], [place], [address] RENAL PROFILE Collected: 10/23/2017 Status: F Source: [place] 10:51 AM [facility] REPOSITORY TYPE CODE TESTS RESULT OUT OF RANGE REFERENCE UNITS LAB L501.0100 74-106 mg/dL High GLU 112 Result Comment: Fasting Glucose result from 100 to 125 mg/dL suggests IMPAIRED HOMEOSTASIS per A.D.A. criteria. Please note revised GLUCOSE reference range effective 2017. LAB L501.1000 7-18 mg/dL High BUN 42 LAB L501.1100 0.55-1.02 mg/dL High CREAT,SERUM 1.96 Result Comment: The validity of the calculated GFR AND GFRAA in patients over 70 years has not been determined. Clinical correlation is essential. LAB L501.1110 >60 mL/min Low EST GFR 27 Result Comment: Non- GFR Calc LAB L501.1115 >60 mL/min Low EST GFR - AA 32 Result Comment: GFR Calc LAB L501.1255 ml/min Normal Estimated CRCL 21.15 LAB L501.1300 10-20 RATIO High BUN/CRE 21.4 LAB L501.1800 3.2-5. g/dL Normal 0 ALB 3.5 LAB L501.2200 8.5-10 mg/dL Normal .1 CA 8.8 LAB L501.2300 2.5-4. mg/dL Normal 9 PHOS 4.0 LAB L501.5300 136-14 mmol/L Normal 5 NA 142 LAB L501.5600 3.5-5. mmol/L Normal 1 K 4.8 LAB L501.5900 98-107 mmol/L Normal CL 107 LAB L501.6100 21.0-3 mmol/L Normal 2.0 CO2 28.0 Performed By: #### L100.0600, L500.3600, L503.6030, L503.6550 #### [facility] [address] [place], [address] IRON+IRON BINDING Collected: 10/23/2017 Status: F Source: [place] CAPACITY 10:51 AM [facility] REPOSITORY TYPE CODE TESTS RESULT OUT OF RANGE REFERENCE UNITS LAB L503.6075 250-450 ug/dL TIBC Normal 331 LAB L503.6150 50-170 ug/dL IRON Normal 69 LAB L503.6250 15.0-55.0 % IRON Normal SATURATION 20.8 Performed By: #### L100.0600, L500.3600, L503.6030, L503.6550 #### [facility] [address] [place], [address] FERRITIN Collected: 10/23/2017 Status: F Source: [place] 10:51 AM [facility] REPOSITORY TYPE CODE TESTS RESULT OUT OF RANGE REFERENCE UNITS LAB L503.6550 8-252 ng/mL Normal FERRITIN 63 Performed By: #### L100.0600, L500.3600, L503.6030, L503.6550 #### [facility] [address] [place], [address] HH, HEMOGLOBIN AND Collected: 10/09/2017 Status: F Source: [place] [facility] 10:54 AM [facility] REPOSITORY TYPE CODE TESTS RESULT OUT OF RANGE REFERENCE UNITS LAB L100.1300 12.0-15.0 g/dl Low HGB 10.6 LAB L100.1400 37-47 % Low HCT 34.0 Performed By: #### L100.0600 #### [facility] [address] [place], [address] HH, HEMOGLOBIN AND Collected: 09/25/2017 Status: F Source: [place] [facility] 11:15 AM [facility] REPOSITORY TYPE CODE TESTS RESULT OUT OF RANGE REFERENCE UNITS LAB L100.1300 12.0-15.0 g/dl Low HGB 10.0 LAB L100.1400 37-47 % Low HCT 32.4 Performed By: #### L100.0600 #### [facility] [address] [place], [address] RENAL PROFILE Collected: 09/25/2017 Status: F Source: [place] 11:15 AM [facility] REPOSITORY TYPE CODE TESTS RESULT OUT OF RANGE REFERENCE UNITS LAB L501.0100 74-106 mg/dL High GLU 110 Result Comment: Fasting Glucose result from 100 to 125 mg/dL suggests IMPAIRED HOMEOSTASIS per A.D.A. criteria. Please note revised GLUCOSE reference range effective 2017. LAB L501.1000 7-18 mg/dL High BUN 31 LAB L501.1100 0.55-1.02 mg/dL High CREAT,SERUM 2.00 Result Comment: The validity of the calculated GFR AND GFRAA in patients over 70 years has not been determined. Clinical correlation is essential. LAB L501.1110 >60 mL/min Low EST GFR 26 Result Comment: Non- GFR Calc LAB L501.1115 >60 mL/min Low EST GFR - AA 31 Result Comment: GFR Calc LAB L501.1300 10-20 RATIO Normal BUN/CRE 15.5 LAB L501.1800 3.2-5.0 g/dL Normal ALB 3.3 LAB L501.2200 8.5-10.1 mg/dL CA Normal 8.5 LAB L501.2300 2.5-4.9 mg/dL Normal PHOS 3.4 LAB L501.5300 136-145 mmol/L NA Normal 142 LAB L501.5600 3.5-5.1 mmol/L K Normal 5.0 LAB L501.5900 98-107 mmol/L High CL 108 LAB L501.6100 21.0-32.0 mmol/L Normal CO2 26.0 Performed By: #### L500.3600 #### [facility] [address] [place], [place], [address] HH, HEMOGLOBIN AND Collected: 09/11/2017 Status: F Source: [place] [facility] 10:55 AM [facility] REPOSITORY Order Comment: SPECIMEN OBTAINED FROM LINE DRAW TYPE CODE TESTS RESULT OUT OF RANGE REFERENCE UNITS LAB L100.1300 12.0-15.0 g/dl Low HGB 10.4 LAB L100.1400 37-47 % Low HCT 32.4 Performed By: #### L100.0600 #### [facility] [address] [place], [address] MICROALB:CREAT Collected: 08/28/2017 Status: F Source: [place] RATIO,RANDOM UR 1:00 PM [facility] REPOSITORY TYPE CODE TESTS RESULT OUT OF RANGE REFERENCE UNITS LAB L501.1200 NO RANGE EST. mg/dL Normal UR CREAT 96.20 LAB L502.0500 NO RANGE EST. mg/L Normal 164.0 MICROALBUMIN ,UR LAB L502.0600 <30 mg/g CRE mg/g CRE High 170.5 MALB:CREAT Performed By: #### L502.0250 #### [facility] [address] [place], [place], [address] CBC-COMPLETE BLOOD CNT Collected: 08/28/2017 Status: F Source: [place] NO DIFF 12:20 PM [facility] REPOSITORY TYPE CODE TESTS RESULT OUT OF RANGE REFERENCE UNITS LAB L100.1000 4.4-11.0 K/mm3 Normal WBC 5.5 LAB L100.1200 4.2-5.4 M/mm3 Low RBC 3.38 LAB L100.1300 12.0-15.0 g/dl Low HGB 10.8 LAB L100.1400 37-47 % Low HCT 33.4 LAB L100.1500 81-99 fL Normal MCV 98.8 LAB L100.1600 27.0-32.0 pg Normal MCH 32.0 LAB L100.1700 32-36 g/gl Normal MCHC 32.3 LAB L100.1810 11.6-14.6 % Normal RDW CV 14.3 LAB L100.1820 35.1-43.9 fl High RDW SD 50.2 LAB L100.1900 150-450 K/mm3 Normal PLT 206 LAB L100.2000 6.2-12.0 fl Normal MPV 9.5 Performed By: #### L100.0500 #### [facility] [address] [place], [place], [address] RENAL PROFILE Collected: 08/28/2017 Status: F Source: [place] 12:20 PM [facility] REPOSITORY TYPE CODE TESTS RESULT OUT OF RANGE REFERENCE UNITS LAB L501.0100 74-106 mg/dL Normal GLU 77 Result Comment: Please note revised GLUCOSE reference range effective 2017. LAB L501.1000 7-18 mg/dL High BUN 39 LAB L501.1100 0.55-1.02 mg/dL High CREAT,SERUM 2.06 Result Comment: The validity of the calculated GFR AND GFRAA in patients over 70 years has not been determined. Clinical correlation is essential. LAB L501.1110 >60 mL/min Low EST GFR 25 Result Comment: Non- GFR Calc LAB L501.1115 >60 mL/min Low EST GFR - AA 30 Result Comment: GFR Calc LAB L501.1300 10-20 RATIO Normal BUN/CRE 18.9 LAB L501.1800 3.2-5.0 g/dL Normal ALB 3.4 LAB L501.2200 8.5-10.1 mg/dL CA Normal 9.0 LAB L501.2300 2.5-4.9 mg/dL Normal PHOS 3.6 LAB L501.5300 136-145 mmol/L NA Normal 141 LAB L501.5600 3.5-5.1 mmol/L K Normal 4.5 LAB L501.5900 98-107 mmol/L High CL 109 LAB L501.6100 21.0-32.0 mmol/L Normal CO2 25.0 Performed By: #### L500.3600 #### [facility] [address] [place] [place], [address] PTHIN Collected: 08/28/2017 Status: F Source: [place] 12:20 PM [facility] REPOSITORY TYPE CODE TESTS RESULT OUT OF RANGE REFERENCE UNITS LAB L509.1000 18.4-80.1 pg/mL High PTHIN 157.8 Performed By: #### L509.1000 #### [facility] [address] [place], [address] VITAMIN D,25 HYDROXY Collected: 08/28/2017 Status: F Source: [place] 12:20 PM [facility] REPOSITORY TYPE CODE TESTS RESULT OUT OF REFERENCE UNITS RANGE LAB L506.1000 29.95-100.01 ng/mL Low Vitamin D 18.7 25-OH Result Comment: Vitamin D 25(OH) Status Range Deficiency <20 ng/mL (50nmol/L) Insuffciency 20 - 30 ng/mL (50 - 75 nmol/L) Sufficiency 30 - 100 ng/mL (75 - 250 nmol/L) Toxicity >100 ng/mL (>250 nmol/L) Performed By: #### L506.1000 #### [facility] [address] [place], [address] HH, HEMOGLOBIN AND Collected: 08/14/2017 Status: F Source: [place] [facility]AT[facility] 10:55 AM [facility] REPOSITORY TYPE CODE TESTS RESULT OUT OF RANGE REFERENCE UNITS LAB L100.1300 12.0-15.0 g/dl Low HGB 10.6 LAB L100.1400 37-47 % Low HCT 33.3 Performed By: #### L100.0600 #### [facility] [address] [place], [address] HH, HEMOGLOBIN AND Collected: 07/31/2017 Status: F Source: [place] [facility] 11:15 AM [facility] REPOSITORY TYPE CODE TESTS RESULT OUT OF RANGE REFERENCE UNITS LAB L100.1300 12.0-15.0 g/dl Low HGB 10.6 LAB L100.1400 37-47 % Low HCT 33.8 Performed By: #### L100.0600 #### [facility] [address] [place], [address] RENAL PROFILE Collected: 07/31/2017 Status: F Source: [place] 11:15 AM [facility] REPOSITORY TYPE CODE TESTS RESULT OUT OF RANGE REFERENCE UNITS LAB L501.0100 74-106 mg/dL Normal GLU 80 Result Comment: Please note revised GLUCOSE reference range effective 2017. LAB L501.1000 7-18 mg/dL High BUN 37 LAB L501.1100 0.55-1.02 mg/dL High CREAT,SERUM 1.79 Result Comment: The validity of the calculated GFR AND GFRAA in patients over 70 years has not been determined. Clinical correlation is essential. LAB L501.1110 >60 mL/min Low EST GFR 30 Result Comment: Non- GFR Calc LAB L501.1115 >60 mL/min Low EST GFR - AA 36 Result Comment: GFR Calc LAB L501.1300 10-20 RATIO High BUN/CRE 20.7 LAB L501.1800 3.2-5.0 g/dL Normal ALB 3.4 LAB L501.2200 8.5-10.1 mg/dL CA Normal 9.0 LAB L501.2300 2.5-4.9 mg/dL Normal PHOS 3.5 LAB L501.5300 136-145 mmol/L NA Normal 143 LAB L501.5600 3.5-5.1 mmol/L K Normal 4.6 LAB L501.5900 98-107 mmol/L High CL 110 LAB L501.6100 21.0-32.0 mmol/L Normal CO2 25.0 Performed By: #### L500.3600, L503.6030, L503.6550 #### [facility] [address] [place], [address] IRON+IRON BINDING Collected: 07/31/2017 Status: F Source: [place] CAPACITY 11:15 AM [facility] REPOSITORY TYPE CODE TESTS RESULT OUT OF RANGE REFERENCE UNITS LAB L503.6075 250-450 ug/dL TIBC Normal 333 LAB L503.6150 50-170 ug/dL IRON Normal 97 LAB L503.6250 15.0-55.0 % IRON Normal SATURATION 29.1 Performed By: #### L500.3600, L503.6030, L503.6550 #### [facility] [address] [place], [address] FERRITIN Collected: 07/31/2017 Status: F Source: [place] 11:15 AM [facility] REPOSITORY TYPE CODE TESTS RESULT OUT OF RANGE REFERENCE UNITS LAB L503.6550 8-252 ng/mL Normal FERRITIN 36 Performed By: #### L500.3600, L503.6030, L503.6550 #### [facility] [address] [place], [address] HH, HEMOGLOBIN AND Collected: 07/17/2017 Status: F Source: [place] HEMATOCRIT 10:58 AM [facility] REPOSITORY TYPE CODE TESTS RESULT OUT OF RANGE REFERENCE UNITS LAB L100.1300 12.0-15.0 g/dl Low HGB 10.4 LAB L100.1400 37-47 % Low HCT 33.3 Performed By: #### L100.0600 #### [facility] [address] [place], [address] HH, HEMOGLOBIN AND Collected: 07/03/2017 Status: F Source: [place] [facility]EMATOCRIT 11:00 AM [facility] REPOSITORY TYPE CODE TESTS RESULT OUT OF RANGE REFERENCE UNITS LAB L100.1300 12.0-15.0 g/dl Low HGB 10.3 LAB L100.1400 37-47 % Low HCT 32.6 Performed By: #### L100.0600 #### [facility] [address] [place], [place], [address] RENAL PROFILE Collected: 07/03/2017 Status: F Source: [place] 11:00 AM [facility] REPOSITORY TYPE CODE TESTS RESULT OUT OF RANGE REFERENCE UNITS LAB L501.0100 74-106 mg/dL Low GLU 67 Result Comment: Please note revised GLUCOSE reference range effective 2017. LAB L501.1000 7-18 mg/dL High BUN 25 LAB L501.1100 0.55-1.02 mg/dL High CREAT,SERUM 1.80 Result Comment: The validity of the calculated GFR AND GFRAA in patients over 70 years has not been determined. Clinical correlation is essential. LAB L501.1110 >60 mL/min Low EST GFR 29 Result Comment: Non- GFR Calc LAB L501.1115 >60 mL/min Low EST GFR - AA 35 Result Comment: GFR Calc LAB L501.1300 10-20 RATIO Normal BUN/CRE 13.9 LAB L501.1800 3.2-5.0 g/dL Normal ALB 3.2 LAB L501.2200 8.5-10.1 mg/dL CA Normal 8.8 LAB L501.2300 2.5-4.9 mg/dL Normal PHOS 2.6 LAB L501.5300 136-145 mmol/L NA Normal 144 LAB L501.5600 3.5-5.1 mmol/L K Normal 4.8 LAB L501.5900 98-107 mmol/L High CL 110 LAB L501.6100 21.0-32.0 mmol/L Normal CO2 27.0 Performed By: #### L500.3600 #### [facility] [address] [place], [address] HH, HEMOGLOBIN AND Collected: 06/19/2017 Status: F Source: [place] [facility]ATOCRIT 11:05 AM [facility] REPOSITORY TYPE CODE TESTS RESULT OUT OF RANGE REFERENCE UNITS LAB L100.1300 12.0-15.0 g/dl Low HGB 10.5 LAB L100.1400 37-47 % Low HCT 33.5 Performed By: #### L100.0600 #### [facility] [address] [place], [address] PROGRESS Observed: 06/17/2017 Status: COMPLETED Source: [place] 8:42 AM [facility] REPOSITORY HNO ID: [id number] Author: Neel Turpin Service: (none) Author Type: Physician Type: Progress Notes Filed: 06/17/2017 9:10 AM Note Text: This note was created using [employer]. Subjective Val Herbert is a 72 year old female here for follow up. Her bilateral low back pain with sciatica was controlled. Dr. Felice Kovacs discharged her from care. Her diabetes mellitus was controlled. Anemia and CKD were stable. She noted a transient lump in her right axilla 3 weeks ago, that resolved. She was overdue for a mammogram. No breast lumps were noted. She noted skin irritation under her left breast off and on. She also had a sore spot on her posterior neck and scalp for one month. Her hypertension was controlled, and she reduced her losartan to once daily on her own. Her CKD was stable and monitored by Dr. Louise. Proteinuria appeared to be stable. Her weight was more or less stable. 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 Plexus Ease (Pain relief) COMPOUNDED PRESCRIPTION Take 1 tablet by mouth twice daily. Plexus Bio-5 (Probiotic) losartan (COZAAR) 50 mg tablet Take 1 tablet by mouth once daily. pioglitazone (ACTOS) 45 mg tablet Take 1 tablet by mouth once daily. Insulin Diamond, Disposable, 29 gauge x 1/2 ndle Use once daily as directed. Dx E11.29 glimepiride (AMARYL) 4 mg tablet Take 1 tablet by mouth daily with breakfast. For diabetes. gabapentin (NEURONTIN) 300 mg capsule Take 300 mg by mouth twice daily. simvastatin (ZOCOR) 40 mg tablet Take 1 tablet by mouth daily at bedtime. For cholesterol. insulin glargine (LANTUS SOLOSTAR) 100 unit/mL (3 mL) inpn Inject 45 Units subcutaneously every morning. (Patient taking differently: Inject 35 Units subcutaneously every morning. ) blood sugar diagnostic (dineoutUCH ULTRA TEST) test strip Test blood sugar(s) 2 times daily. calcitriol (ROCALTROL) 0.25 mcg capsule Take 1 capsule by mouth once daily. fexofenadine (ZAC) 180 mg tablet Take 1 tablet by mouth once daily. epoetin zari (PROCRIT) 10,000 unit/mL INJECTION injection Inject 1 mL subcutaneously every 2 weeks. 12,000 Units every two weeks. beta-carotene(a) w-c AND e/min(OCUVITE TAB) Take one(1) tablet daily. Lancets (FREESTYLE LANCETS) Misc Misc Test twice daily 250.02 doxycycline (VIBRA-TABS) 100 mg tablet Take 1 tablet by mouth twice daily for 7 days. No current facility-administered medications for this visit. Review of Systems Constitutional: Negative. Respiratory: Negative. Cardiovascular: Negative. Gastrointestinal: Negative. Genitourinary: Negative. Musculoskeletal: Positive for back pain. Objective BP 130/66 (BP Site: Left Arm, BP Position: Sitting, BP Cuff Size: Regular Adult) Pulse 84 Temp 36.1 ?C (97 ?F) (Left Tympanic) Resp 20 Wt 122.5 kg (270 lb) BMI 47.83 kg/m2 Physical Exam Constitutional: No distress. Cardiovascular: Normal heart sounds. Pulmonary/Chest: Breath sounds normal. Musculoskeletal: She exhibits edema and deformity. Neurological: She is alert. Skin: Mildly inflamed seborrheic keratosis beneath left breast. Folliculitis of the right occipital scalp 5 mm, ulcerated, no drainage, erythematous. No right axillary mass appreciated. Assessment and Plan ASSESSMENT/PLAN: 1. CKD (chronic kidney disease) stage 4, GFR 15-29 ml/min (HCC) - ICD9: 585.4, ICD10: N18.4 (primary diagnosis) Stable. Proteinuria appears to be stable. 2. Essential hypertension - ICD9: 401.9, ICD10: I10 - good control - LOSARTAN 50 MG TABLET. Take one(1) tablet daily. As patient is taking. 3. Type 2 diabetes mellitus with stage 4 chronic kidney disease, with long-term current use of insulin (HCC) - ICD9: 250.40, 585.4, V58.67, ICD10: E11.22, N18.4, Z79.4 Controlled. - Continue current medications 4. Seborrheic keratosis, inflamed - ICD9: 702.11, ICD10: L82.0 Beneath left breast. HCC as needed. 5. Acute folliculitis - ICD9: 704.8, ICD10: L73.9 Posterior scalp. - DOXYCYCLINE HYCLATE 100 MG TABLET 6. Hyperparathyroidism, secondary renal (HCC) - ICD9: 588.81, ICD10: N25.81 Stable. 7. Class 3 obesity with body mass index (BMI) of 45.0 to 49.9 in adult, unspecified obesity type, unspecified whether serious comorbidity present (HCC) - ICD9: 278.00, V85.42, ICD10: E66.9, Z68.42 Stable. Reviewed. 8. Encounter for screening mammogram for breast cancer - ICD9: V76.12, ICD10: Z12.31 - NANETTE SCREENING Neel Turpin MD CNOV Observed: 06/17/2017 Status: COMPLETED Source: [place] 8:20 AM [facility] REPOSITORY Office Visit (INTMWS) VAL HERBERT ([id number]) 1945 F Date Time Provider Department 06/17/17 8:20 AM NEEL TURPIN INTHolliWS During your visit today, we recorded the following information about you: Temperature Pulse Respiration Blood pressure 97 degrees 84/minute 20/minute 130/66 Weight 122.5 kg Neel Turpin MD 06/17/2017 9:10 AM Signed This note was created using [employer]. Subjective Val Herbert is a 72 year old female here for follow up. Her bilateral low back pain with sciatica was controlled. Dr. Felice Kovacs discharged her from care. Her diabetes mellitus was controlled. Anemia and CKD were stable. She noted a transient lump in her right axilla 3 weeks ago, that resolved. She was overdue for a mammogram. No breast lumps were noted. She noted skin irritation under her left breast off and on. She also had a sore spot on her posterior neck and scalp for one month. Her hypertension was controlled, and she reduced her losartan to once daily on her own. Her CKD was stable and monitored by Dr. Louise. Proteinuria appeared to be stable. Her weight was more or less stable. 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 Plexus Ease (Pain relief) COMPOUNDED PRESCRIPTION Take 1 tablet by mouth twice daily. Plexus Bio-5 (Probiotic) losartan (COZAAR) 50 mg tablet Take 1 tablet by mouth once daily. pioglitazone (ACTOS) 45 mg tablet Take 1 tablet by mouth once daily. Insulin Diamond, Disposable, 29 gauge x 1/2ANDquot; ndle Use once daily as directed. Dx E11.29 glimepiride (AMARYL) 4 mg tablet Take 1 tablet by mouth daily with breakfast. For diabetes. gabapentin (NEURONTIN) 300 mg capsule Take 300 mg by mouth twice daily. simvastatin (ZOCOR) 40 mg tablet Take 1 tablet by mouth daily at bedtime. For cholesterol. insulin glargine (LANTUS SOLOSTAR) 100 unit/mL (3 mL) inpn Inject 45 Units subcutaneously every morning. (Patient taking differently: Inject 35 Units subcutaneously every morning. ) blood sugar diagnostic (ONETOUCH ULTRA TEST) test strip Test blood sugar(s) 2 times daily. calcitriol (ROCALTROL) 0.25 mcg capsule Take 1 capsule by mouth once daily. fexofenadine (ZAC) 180 mg tablet Take 1 tablet by mouth once daily. epoetin zari (PROCRIT) 10,000 unit/mL INJECTION injection Inject 1 mL subcutaneously every 2 weeks. 12,000 Units every two weeks. beta-carotene(a) w-c ANDamp; e/min(OCUVITE TAB) Take one(1) tablet daily. Lancets (FREESTYLE LANCETS) Misc Misc Test twice daily 250.02 doxycycline (VIBRA-TABS) 100 mg tablet Take 1 tablet by mouth twice daily for 7 days. No current facility-administered medications for this visit. Review of Systems Constitutional: Negative. Respiratory: Negative. Cardiovascular: Negative. Gastrointestinal: Negative. Genitourinary: Negative. Musculoskeletal: Positive for back pain. Objective BP 130/66 (BP Site: Left Arm, BP Position: Sitting, BP Cuff Size: Regular Adult) Pulse 84 Temp 36.1 ?C (97 ?F) (Left Tympanic) Resp 20 Wt 122.5 kg (270 lb) BMI 47.83 kg/m2 Physical Exam Constitutional: No distress. Cardiovascular: Normal heart sounds. Pulmonary/Chest: Breath sounds normal. Musculoskeletal: She exhibits edema and deformity. Neurological: She is alert. Skin: Mildly inflamed seborrheic keratosis beneath left breast. Folliculitis of the right occipital scalp 5 mm, ulcerated, no drainage, erythematous. No right axillary mass appreciated. Assessment and Plan ASSESSMENT/PLAN: 1. CKD (chronic kidney disease) stage 4, GFR 15-29 ml/min ([facility]) - ICD9: 585.4, ICD10: N18.4 (primary diagnosis) Stable. Proteinuria appears to be stable. 2. Essential hypertension - ICD9: 401.9, ICD10: I10 - good control - LOSARTAN 50 MG TABLET. Take one(1) tablet daily. As patient is taking. 3. Type 2 diabetes mellitus with stage 4 chronic kidney disease, with long-term current use of insulin ([facility]) - ICD9: 250.40, 585.4, V58.67, ICD10: E11.22, N18.4, Z79.4 Controlled. - Continue current medications 4. Seborrheic keratosis, inflamed - ICD9: 702.11, ICD10: L82.0 Beneath left breast. HCC as needed. 5. Acute folliculitis - ICD9: 704.8, ICD10: L73.9 Posterior scalp. - DOXYCYCLINE HYCLATE 100 MG TABLET 6. Hyperparathyroidism, secondary renal (HCC) - ICD9: 588.81, ICD10: N25.81 Stable. 7. Class 3 obesity with body mass index (BMI) of 45.0 to 49.9 in adult, unspecified obesity type, unspecified whether serious comorbidity present (HCC) - ICD9: 278.00, V85.42, ICD10: E66.9, Z68.42 Stable. Reviewed. 8. Encounter for screening mammogram for breast cancer - ICD9: V76.12, ICD10: Z12.31 - NANETTE SCREENING Neel Turpin MD Referring Provider: SELF [[id number]] Allergies As of Date: 06/17/2017 Noted Allergy Reaction LEVAQUIN (LEVOFLOXACIN) 12/29/2004 Comments: itching,diarrhea,dausea,burning skin SEASONAL ALLERGIES 08/19/2014 14 - Other: See Comments Comments: Sinus SULFA (SULFONAMIDE ANTIBIOTICS) 12/29/2004 Comments: rash and hives Date Reviewed: 06/17/2017 Reviewed by: Jesenia Glasgow LPN - Fully Assessed Reason for Visit: F/U 6 Month [444] Primary Visit Diagnosis:CKD (chronic kidney disease) stage 4, GFR 15-29 ml/min (HCC) [N18.4] Other Visit Diagnoses:Essential hypertension [I10] Type 2 diabetes mellitus with stage 4 chronic kidney disease, with long-term current use of insulin (HCC) [E11.22, N18.4, Z79.4] Seborrheic keratosis, inflamed [L82.0] Acute folliculitis [L73.9] Hyperparathyroidism, secondary renal (HCC) [N25.81] Class 3 obesity with body mass index (BMI) of 45.0 to 49.9 in adult, unspecified obesity type, unspecified whether serious comorbidity present (HCC) [E66.9, Z68.42] Encounter for screening mammogram for breast cancer [Z12.31] Order(s):losartan (COZAAR) 50 mg tabletTake 1 tablet by mouth once daily.Disp: 30 tabletRfl: 11 [facility] SCREENING [[id number]] Order #: [id number] FUTURE doxycycline (VIBRA-TABS) 100 mg tabletTake 1 tablet by mouth twice daily for 7 days.Disp: 14 tabletRfl: 0 Prescriptions as of 06/17/2017 Sig: COMPOUNDED PRESCRIPTION Take 1 tablet by mouth twice * COMPOUNDED PRESCRIPTION Take 1 tablet by mouth twice * LOSARTAN 50 MG TABLET Take 1 tablet by mouth once d* PIOGLITAZONE 45 MG TABLET Take 1 tablet by mouth once d* PEN NEEDLE, DIABETIC 29 GAUGE* Use once daily as directed. * GLIMEPIRIDE 4 MG TABLET Take 1 tablet by mouth daily * GABAPENTIN 300 MG CAPSULE Take 300 mg by mouth twice da* SIMVASTATIN 40 MG TABLET Take 1 tablet by mouth daily * INSULIN GLARGINE (U-100) 100 * Inject 45 Units subcutaneousl* Patient taking differently: Inject 35 Units subcutaneousl* BLOOD SUGAR DIAGNOSTIC STRIPS Test blood sugar(s) 2 times d* CALCITRIOL 0.25 MCG CAPSULE Take 1 capsule by mouth once * FEXOFENADINE 180 MG TABLET Take 1 tablet by mouth once d* * EPOETIN ZARI 10,000 UNIT/ML I* Inject 1 mL subcutaneously ev* * OCUVITE TABLET Take one(1) tablet daily. * FREESTYLE LANCETS 28 GAUGE Test twice daily 250.02 DOXYCYCLINE HYCLATE 100 MG TA* Take 1 tablet by mouth twice * Medication notes this encounter GABAPENTIN 300 MG CAPSULE >> Jesenia Glasgow LPN 06/17/2017 8:20 AM >> JESENIA GLASGOW LPN SatJun 17, 2017 8:20 AM PRN BLOOD SUGAR DIAGNOSTIC STRIPS >> Jesenia Glasgow TECHNOLOGY ANALYST 06/17/2017 8:19 AM >> JESENIA GLASGOW LPN SatJun 17, 2017 8:19 AM Patient testing 1x daily. FEXOFENADINE 180 MG TABLET >> Jesenia Glasgow LPN 06/17/2017 8:20 AM >> JESENIA GLASGOW LPN SatJun 17, 2017 8:20 AM PRN LOSARTAN 50 MG TABLET >> Jesenia Glasgow LPN 06/17/2017 8:22 AM >> JESENIA GLASGOW LPN Sat Jun 17, 2017 8:22 AM Patient taking 1 tablet once daily. Problem List As Of Date 06/17/2017 Noted Resolved Essential hypertension [I10] GENERAL OSTEOARTHROSIS [M15.9] ALLERGIC RHINITIS D/T ANIMAL [J30.81] Hyperlipemia [E78.5] Acute bronchitis [J20.9] 06/01/2010 Chest pain, unspecified [R07.9] 06/01/2010 Cough [R05] 06/01/2010 Type II diabetes mellitus with renal manifestat*INVALID FOR* More... Obesity [E66.9] INVALID FOR* More... CKD (chronic kidney disease) stage 4, GFR 15-29*INVALID FOR* More... Anemia [D64.9] INVALID FOR* More... 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 Lytic lesion of bone on x-ray [M89.9] INVALID FOR*06/17/2017 More... Controlled type 2 diabetes mellitus without com*INVALID FOR*06/17/2017 Nonexudative age-related macular degeneration, *INVALID FOR* Pseudophakia, both eyes [Z96.1] INVALID FOR*06/17/2017 Posterior capsule opacification [H26.499] INVALID FOR* Vitreous floaters of both eyes [H43.393] INVALID FOR*06/17/2017 Regular astigmatism, bilateral [H52.223] INVALID FOR*06/17/2017 DDD (degenerative disc disease), thoracolumbar *INVALID FOR* More... Prescriptions ordered this encounter Disp Refills Start End LOSARTAN 50 MG TABLET 30 t* 11 06/17/2017 Route: ORAL Sig: Take 1 tablet by mouth once daily. DOXYCYCLINE HYCLATE 100 MG TABLET 14 t* 0 06/17/2017 06/24/2017 Route: ORAL Sig: Take 1 tablet by mouth twice daily for 7 days. Medications Discontinued During This Encounter losartan (COZAAR) 50 mg tablet 60 t* 6 06/22/2016 06/17/2017 Route: ORAL Sig: Take 1 tablet by mouth twice daily. Disc: Reason for discontinue is not on file. Disposition: Return in about 6 months (around 12/17/2017). Follow-up and Disposition History Recorded Encounter Status:Closed by NEEL TURPIN MD on 06/17/17 HH, HEMOGLOBIN AND Collected: 06/06/2017 Status: F Source: [place] HEMATOCRIT 8:50 AM [facility] REPOSITORY TYPE CODE TESTS RESULT OUT OF RANGE REFERENCE UNITS LAB L100.1300 12.0-15.0 g/dl Low HGB 10.4 LAB L100.1400 37-47 % Low HCT 32.8 Performed By: #### L100.0600 #### [facility] [address] [place], [address] RENAL PROFILE Collected: 06/06/2017 Status: F Source: [place] 8:50 AM [facility] REPOSITORY TYPE CODE TESTS RESULT OUT OF RANGE REFERENCE UNITS LAB L501.0100 74-106 mg/dL Normal GLU 101 Result Comment: Fasting Glucose result from 100 to 125 mg/dL suggests IMPAIRED HOMEOSTASIS per A.D.A. criteria. Please note revised GLUCOSE reference range effective 2017. LAB L501.1000 7-18 mg/dL High BUN 33 LAB L501.1100 0.55-1.02 mg/dL High CREAT,SERUM 1.83 Result Comment: The validity of the calculated GFR AND GFRAA in patients over 70 years has not been determined. Clinical correlation is essential. LAB L501.1110 >60 mL/min Low EST GFR 29 Result Comment: Non- GFR Calc LAB L501.1115 >60 mL/min Low EST GFR - AA 35 Result Comment: GFR Calc LAB L501.1300 10-20 RATIO Normal BUN/CRE 18.0 LAB L501.1800 3.2-5.0 g/dL Normal ALB 3.4 LAB L501.2200 8.5-10.1 mg/dL CA Normal 9.1 LAB L501.2300 2.5-4.9 mg/dL Normal PHOS 3.4 LAB L501.5300 136-145 mmol/L NA Normal 141 LAB L501.5600 3.5-5.1 mmol/L K Normal 4.6 LAB L501.5900 98-107 mmol/L High CL 108 LAB L501.6100 21.0-32.0 mmol/L Normal CO2 27.0 Performed By: #### L500.3600 #### [facility] [address] [place], [place], [address] MICROALB:CREAT Collected: 05/23/2017 Status: F Source: [place] RATIO,RANDOM UR 11:30 AM [facility] REPOSITORY Order Comment: MEDOUT/PORT DRAW HH FOR [place] AND REST FOR TURPIN TYPE CODE TESTS RESULT OUT OF RANGE REFERENCE UNITS LAB L501.1200 NO RANGE EST. mg/dL Normal UR CREAT 79.70 LAB L502.0500 NO RANGE EST. mg/L Normal 97.6 MICROALBUMIN ,UR LAB L502.0600 <30 mg/g CRE mg/g CRE High 122.5 MALB:CREAT Performed By: #### L502.0250 #### [facility] [address] [place], [address] HH, HEMOGLOBIN AND Collected: 05/23/2017 Status: F Source: [place] [facility]EMATO[facility] 11:20 AM [facility] REPOSITORY Order Comment: MEDOUT/PORT DRAW HH FOR [place] AND REST FOR TURPIN TYPE CODE TESTS RESULT OUT OF RANGE REFERENCE UNITS LAB L100.1300 12.0-15.0 g/dl Low HGB 10.5 LAB L100.1400 37-47 % Low HCT 32.6 Performed By: #### L100.0600 #### [facility] [address] [place], [address] COMPREHENSIVE METABOLIC Collected: 05/23/2017 Status: F Source: [place] PROFIL 11:20 AM [facility] REPOSITORY Order Comment: MEDOUT/PORT DRAW HH FOR [place] AND REST FOR TURPIN TYPE CODE TESTS RESULT OUT OF RANGE REFERENCE UNITS LAB L501.0100 74-106 mg/dL Normal GLU 84 Result Comment: Please note revised GLUCOSE reference range effective 2017. LAB L501.1000 7-18 mg/dL High BUN 33 LAB L501.1100 0.55-1.02 mg/dL High CREAT,SERUM 1.83 Result Comment: The validity of the calculated GFR AND GFRAA in patients over 70 years has not been determined. Clinical correlation is essential. LAB L501.1110 >60 mL/min Low EST GFR 29 Result Comment: Non- GFR Calc LAB L501.1115 >60 mL/min Low EST GFR - AA 35 Result Comment: GFR Calc LAB L501.1300 10-20 RATIO Normal BUN/CRE 18.0 LAB L501.1500 6.4-8.2 g/dL T Normal PROT 6.8 LAB L501.1800 3.2-5.0 g/dL Normal ALB 3.3 LAB L501.1950 2.2-4.2 g/dL Normal GLOB 3.5 LAB L501.2000 0.9-2.4 RATIO Normal A/G 0.9 LAB L501.2200 8.5-10.1 mg/dL CA Normal 8.9 LAB L501.4100 15-37 U/L Normal AST 18 LAB L501.4305 45-117 U/L Normal ALK P 61 LAB L501.4405 13-56 U/L Normal ALT 23 Result Comment: Please note revised ALT reference range effective 2017. LAB L501.4600 0.20-1.00 mg/dL Normal T BILI 0.30 LAB L501.5300 136-145 mmol/L Normal NA 142 LAB L501.5600 3.5-5.1 mmol/L Normal K 4.2 LAB L501.5900 98-107 mmol/L Normal CL 107 LAB L501.6100 21.0-32.0 mmol/L Normal CO2 25.0 LAB L501.6200 5-15 Normal GAP 10 Performed By: #### L500.4050, L500.4100 #### [facility] [address] [place], [place], [address] LIPID PROFILE Collected: 05/23/2017 Status: F Source: [place] 11:20 AM [facility] REPOSITORY Order Comment: MEDOUT/PORT DRAW HH FOR [place] AND REST FOR [place] TYPE CODE TESTS RESULT OUT OF RANGE REFERENCE UNITS LAB L501.4900 200 mg/dL Normal CHOL 121 Result Comment: <200 mg/dL Desirable 200-240 mg/dL Borderline >240 mg/dL High Risk LAB L501.5000 mg/dL Normal TRIG 139 Result Comment: The drugs N-Acetylcysteine and Metamizole may falsely depress this assay. Serum Triglycerides Reference Interval Normal <150 mg/dL Borderline high 150 - 199 mg/dL High 200 - 499 mg/dL Very High > or = 500 mg/dL LAB L501.6400 mg/dL Normal HDL 48 Result Comment: The drugs N-Acetylcysteine and Metamizole may falsely depress this assay. Reference Range HDL <40 mg/dL Low HDL Cholesterol HDL >or= 60 mg/dL High HDL Cholesterol LAB L501.6500 0-130 mg/dL Normal LDL 45 LAB L501.6600 5-40 mg/dL Normal VLDL 28 Performed By: #### L500.4050, L500.4100 #### [facility] [address] [place], [address] HEMOGLOBIN A1C Collected: 05/23/2017 Status: F Source: [place] 11:20 AM [facility] REPOSITORY Order Comment: MEDOUT/PORT DRAW HH FOR [place] AND REST FOR [place] TYPE CODE TESTS RESULT OUT OF RANGE REFERENCE UNITS LAB L501.9985 4.2-6.3 % Normal HGB A1C 6.0 Performed By: #### L501.9985 #### [facility] [address] [place], [address] HH, HEMOGLOBIN AND Collected: 05/09/2017 Status: F Source: [place] [facility]EMATOCRIT 1:00 PM [facility] REPOSITORY TYPE CODE TESTS RESULT OUT OF RANGE REFERENCE UNITS LAB L100.1300 12.0-15.0 g/dl Low HGB 10.0 LAB L100.1400 37-47 % Low HCT 31.4 Performed By: #### L100.0600 #### [facility] [address] [place], [address] RENAL PROFILE Collected: 05/09/2017 Status: F Source: [place] 1:00 PM [facility] REPOSITORY TYPE CODE TESTS RESULT OUT OF RANGE REFERENCE UNITS LAB L501.0100 74-106 mg/dL High GLU 140 Result Comment: Fasting Glucose result greater than or equal to 126 mg/dL suggests DIABETES MELLITUS per A.D.A. criteria. Please note revised GLUCOSE reference range effective 2017. LAB L501.1000 7-18 mg/dL High BUN 39 LAB L501.1100 0.55-1.02 mg/dL High CREAT,SERUM 1.80 Result Comment: The validity of the calculated GFR AND GFRAA in patients over 70 years has not been determined. Clinical correlation is essential. LAB L501.1110 >60 mL/min Low EST GFR 29 Result Comment: Non- GFR Calc LAB L501.1115 >60 mL/min Low EST GFR - AA 35 Result Comment: GFR Calc LAB L501.1255 ml/min Normal Estimated CRCL 23.03 LAB L501.1300 10-20 RATIO High BUN/CRE 21.7 LAB L501.1800 3.2-5. g/dL Normal 0 ALB 3.2 LAB L501.2200 8.5-10 mg/dL Normal .1 CA 8.6 LAB L501.2300 2.5-4. mg/dL Normal 9 PHOS 4.5 LAB L501.5300 136-14 mmol/L Normal 5 NA 143 LAB L501.5600 3.5-5. mmol/L Normal 1 K 4.4 LAB L501.5900 98-107 mmol/L High CL 108 LAB L501.6100 21.0-3 mmol/L Normal 2.0 CO2 27.0 Performed By: #### L500.3600, L503.6030, L503.6550 #### [facility] [address] [place], [address] IRON+IRON BINDING Collected: 05/09/2017 Status: F Source: [place] CAPACITY 1:00 PM [facility] REPOSITORY TYPE CODE TESTS RESULT OUT OF RANGE REFERENCE UNITS LAB L503.6075 250-450 ug/dL TIBC Normal 338 LAB L503.6150 50-170 ug/dL IRON Normal 77 LAB L503.6250 15.0-55.0 % IRON Normal SATURATION 22.8 Performed By: #### L500.3600, L503.6030, L503.6550 #### [facility] Laboratory [address] [place], [address] FERRITIN Collected: 05/09/2017 Status: F Source: [place] 1:00 PM [facility] REPOSITORY TYPE CODE TESTS RESULT OUT OF RANGE REFERENCE UNITS LAB L503.6550 8-252 ng/mL Normal FERRITIN 40 Performed By: #### L500.3600, L503.6030, L503.6550 #### [facility] Laboratory [address] [place], [address] HH, HEMOGLOBIN AND Collected: 04/25/2017 Status: F Source: [place] HEMATOCRIT 10:50 AM [facility] REPOSITORY TYPE CODE TESTS RESULT OUT OF RANGE REFERENCE UNITS LAB L100.1300 12.0-15.0 g/dl Low HGB 10.2 LAB L100.1400 37-47 % Low HCT 31.7 Performed By: #### L100.0600 #### [facility] Laboratory [address] [place], [address] HH, HEMOGLOBIN AND Collected: 04/11/2017 Status: F Source: [place] HEMATOCRIT 11:10 AM [facility] REPOSITORY TYPE CODE TESTS RESULT OUT OF RANGE REFERENCE UNITS LAB L100.1300 12.0-15.0 g/dl Low HGB 10.5 LAB L100.1400 37-47 % Low HCT 33.2 Performed By: #### L100.0600 #### [facility] [address] [place], [address] ALLERGIES ALLERGIES DATE TYPE / CODE NAME / CODE REACTION SEVERITY SOURCE 03/26/2018 Drug Sulfa (Sulfonamide Hives Unknown [place] Allergy/416 Antibiotics)/L19015 [facility] 248244([facility] 0491(RXNORM) Hospital ED CT) Repository 03/26/2018 Drug levofloxacin/Q92760 Hives Unknown [place] Allergy/416 6299(RXNORM) [facility] 018196([facility] ED CT) Repository 08/19/2014 Environ/420 SEASONAL ALLERGIES OTHER: SEE C [facility] 744960(SNOM [facility] ED CT) Repository 12/29/2004 DRUG LEVOFLOXACIN [facility] INGREDI/419 [facility] 441673(SNOM Repository ED CT) 12/29/2004 Drug SULFA (SULFONAMIDE [facility] Class/12418 ANTIBIOTICS) [facility] 1003(SNOMED Repository CT) ENCOUNTERS ENCOUNTERS ADMIT/DISCHARGE ACCOUNT NUMBER ADMITTING ENCOUNTER LOCATION SOURCE CLASS 04/07/2018 [id number] [facility] Repository 03/27/[id number] Ambulatory [facility] Repository 03/26/[id number] [facility] ding:MEDOUTP Repository 02/26/[id number] [facility] ding:MEDOUT Repository 02/04/2018/02/05/20 [id number] Ambulatory [address] ding:[facility] Repository 01/29/[id number] [facility] ding:MEDOUT Repository 01/27/2018/02/27/20 [id number] Jose Sánchez Chi Inpatient [place] Tib[place] 18 Encounter [facility] ding:TCURoom Repository : ZJJ60Wbk: 1 01/23/2018/01/28/20 [id number] White, Mone Inpatient [place] Tiburcio 18 Encounter [facility] ding:XP3Ybru Repository : JN187Nlh: 1 01/23/2018 [id number] White, Mone Ambulatory BMSBuilding: [place] BMS.[facility] Repository 01/23/2018 [id number] White, Mone Ambulatory BMSBuilding: [place] BMS.[facility] Repository 01/23/2018 [id number] White, Mone Ambulatory BMSBuilding: [place] BMS.[facility] Repository 01/23/2018 [id number] , Mone Ambulatory BMSBuilding: [place] BMS.[facility] Repository 01/23/2018 [id number] , Mone Ambulatory BMSBuilding: [place] BMS.[facility] Repository 01/23/2018 [id number] , Mone Ambulatory BMSBuilding: [place] BMS.[facility] Repository 01/01/2018/01/03/20 [id number] Ambulatory [address] Repository 01/01/2018 [id number] Ambulatory [facility] Hospital ding:MEDOUTP Repository 12/04/2017 [id number] [facility]P Repository 11/20/2017 [id number] [facility] ding:MEDOUTP Repository 11/06/2017 [id number] Ambulatory [facility] Hospital ding:MEDOUTP Repository 10/24/2017/11/20/19 [id number] Ambulatory [address] Repository 10/23/2017 [id number] [facility] ding:MEDOUTP Repository 10/09/2017 [id number] [facility] ding:MEDOUTP Repository 09/25/2017 [id number] [facility] ding:MEDOUTP Repository 09/11/2017 [id number] [facility] ding:MEDOUTP Repository 08/28/2017 [id number] [facility] ding:MEDOUTP Repository 08/14/2017 [id number] [facility] ding:MEDOUTP Repository 07/31/2017 [id number] [facility] ding:MEDOUTP Repository 07/17/2017 [id number] [facility] ding:MEDOUTP Repository 07/03/2017 [id number] [facility] ding:MEDOUTP Repository 06/19/2017 [id number] [facility] Repository 06/17/2017/06/18/19 [id number] Ambulatory [address] Repository 06/06/[id number] [facility] ding:MEDOUTP Repository 05/23/2017 [id number] [facility] ding:MEDOUTP Repository 05/09/2017 [id number] [facility] ding:MEDOUTP Repository 04/25/2017 [id number] [facility] ding:MEDOUTP Repository 04/11/2017 [id number] [facility] ding:MEDOUTP Repository PAYERS PAYERS ENCOUNTER GUARANTOR PAYER SUBSCRIBER SOURCE 04/07/2018 VAL PLANKDOB: Primary VAL PLANKDOB: Episcopalian S Insurance:MedicarePol [id number] [facility] Number: Effective S [employer] [facility], Date:2018-04-07 - [facility], Repository [place] [address]Bje: 5715-37-89Wdcf [place] [address]Vcu: Name:CD:[id number] BOX () 572416EKTHKDVVWW [place] ()Tel: [phone]: [phone] 04/07/2018 Secondary VAL PLANKDOB: Episcopalian Insurance:CIGNAPolicy [id number] [facility] Number: Effective S [employer] Date:2018-04-07 - [facility], Repository 0753-18-88Iwut [place] [address]Fot: Name:CD:[id number] [address] DUSTIN LAYTON (HP)Tel: [phone]: [phone] 03/27/2018 Primary VAL PLANKDOB: [facility] Insurance:MedicarePol [id number] [facility] paul Number: [facility] [id number] [place], [place] Repository Date:7937-83-37Gdnz [address]Mha: (419) Name:Ginny Pascual [phone] () 03/27/2018 Secondary VAL PLANKDOB: [facility] Insurance:MedicarePol [id number] Robin Number: [facility] [id number] [place], [place] Repository Date:2963-71-05Rwys [address]Drj: (419) Name:Ginny Matias [phone] () 03/26/2018 VAL [id number] Primary VAL E PLANKDOB: [place] Insurance:MEDICARE [id number] Community [address], Number: Repository [place] [address]Jfd: [id number] Date:2018-02-26 () 03/26/2018 Secondary VAL E PLANKDOB: [place] Insurance:CIGNAPolicy [id number] Community Number: [facility] [id number] Repository Date:1602-10-52PC [address]DVMTNHVYNGI, [place] [address]ZH: 03/26/2018 Tertiary NOT GIVENUNK [place] Insurance:SELF PAY Community [facility] Number: Effective Repository Date:2018-02-26 02/26/2018 VAL Gordon [id number] Primary VAL E PLANKDOB: [place] Insurance:MEDICARE [id number] [facility] AVE[address] PART A [address], Number: Repository [place] [address]Uix: [id number] Date:2018-01-29 () 02/26/2018 Secondary VAL E PLANKDOB: [place] Insurance:CIGNAPolicy [id number] Community Number: [facility] [id number] Repository Date:6207-41-47GE [address]ZECZPKVANMD, [place] [address]DN: 02/26/2018 Tertiary NOT GIVENUNK [place] Insurance:SELF PAY Community [facility] Number: Effective Repository Date:2018-01-29 02/04/2018 VAL Heidi [id number] Primary VAL E PLANKDOB: [place] Insurance:MEDICARE [id number] [facility] AVE[address] PART A [address], Number: Repository [place] [address]Vsy: [id number] Date:2018-01-31 () 02/04/2018 Secondary VAL E PLANKDOB: [place] Insurance:CIGNAPolicy [id number] Community Number: Hospital [id number] Repository Date:5119-87-10CC [address]UWYJIMZMNQG, [place] [address]YD: 02/04/2018 Tertiary NOT GIVENUNK [place] Insurance:SELF PAY Community [facility] Number: Effective Repository Date:2018-01-31 01/29/2018 VAL Heidi [id number] Primary VAL E PLANKDOB: [place] Insurance:MEDICARE [id number] [facility] AVE[address] PART A [address], Number: [place]ository [place] [address]Cxv: [id number] Date:2018-01-01 () 01/29/2018 Secondary VAL E PLANKDOB: [place] Insurance:CIGNAPolicy [id number] Community Number: Hospital [id number] Repository Date:0185-90-25BR [address]YYRNURXMPBR, [place] [address]MH: 01/29/2018 Tertiary NOT GIVENUNK [place] Insurance:SELF PAY Community [facility] Number: Effective Repository Date:2018-01-01 01/27/2018 VAL E [id number] Primary VAL E PLANKDOB: [place] Insurance:STATE [facility] [id number] Community AVE[address] AUTOPolicy Number: [address] [id number] Repository [place] [address]Dxx: Date: N [facility] () [place] [address]IJ: 01/27/2018 Secondary VAL E PLANKDOB: [place] Insurance:MEDICARE [id number] Community PART A [facility] Hospital Number: Repository [id number] Date:2018-01-27 01/27/2018 Tertiary VAL E PLANKDOB: [place] Insurance:CIGNAPolicy [id number] Community Number: Hospital [id number] Repository Date:4986-72-97BW [facility] 984952FSUXSABHTEJ, [place] [address]IO: 01/27/2018 Tertiary NOT GIVENUNK [place] Insurance:SELF PAY Community [facility] Number: Effective Repository Date:2018-01-27 01/23/2018 VAL E [id number] Primary VAL E PLANKDOB: [place] Insurance:STATE [facility] [id number] Community AVE[address] AUTOPolic Number: [address], [id number] Repository [place] [address]Qbk: Date: N [facility], () [place] [address]XT: 01/23/2018 Secondary VAL E PLANKDOB: [place] Insurance:MEDICARE [id number] Community PART A [facility] Number: Repository [id number] Date:2018-01-23 01/23/2018 Tertiary VAL E PLANKDOB: [place] Insurance:CIGNAPolicy [id number] Community Number: Hospital [id number] Repository Date:9968-74-08CX [facility] [address]14[address]INDBLKQAWMOSAINT [place], [place] [address]FD: 01/23/2018 Tertiary NOT GIVENUNK [place] Insurance:SELF PAY Community [facility] Number: Effective Repository Date:2018-01-23 01/23/2018 VAL Heidi [id number] Primary VAL E PLANKDOB: [place] Insurance:MEDICARE [id number] Community [address] PART A [address], Number: [place]ository [place] [address]Vbe: [id number] Date:2018-01-23 () 01/23/2018 Secondary VAL E PLANKDOB: [place] Insurance:CIGNAPolicy [id number] Community Number: [facility] [id number] Repository Date:2140-34-89WX [address]APABJTVEZFE, [place] [address]DU: 01/23/2018 Tertiary NOT GIVENUNK [place] Insurance:SELF PAY Community [facility] Number: Effective Repository Date:2018-01-23 01/23/2018 VAL [id number] Primary VAL E PLANKDOB: [place] Insurance:MEDICARE [id number] Community [address] PART A [address], Number: Repository [place] [address]Nfd: [id number] Date:2018-01-23 () 01/23/2018 Secondary VAL E PLANKDOB: [place] Insurance:CIGNAPolicy [id number] Community Number: [facility] [id number] Repository Date:3023-24-83GE [address]PDDJQKRNSTK, [place] [address]JX: 01/23/2018 Tertiary NOT GIVENUNK [place] Insurance:SELF PAY Community [facility] Number: Effective Repository Date:2018-01-23 01/23/2018 VAL [id number] Primary VAL E PLANKDOB: [place] Insurance:MEDICARE [id number] Community [address] PART A [address], Number: Repository [place] [address]Ayk: [id number] Date:2018-01-23 () 01/23/2018 Secondary VAL E PLANKDOB: [place] Insurance:CIGNAPolicy [id number] Community Number: [facility] [id number] Repository Date:4830-22-77RC [address]KZBPYZDIAJJ, [place] [address]RN: 01/23/2018 Tertiary NOT GIVENUNK [place] Insurance:SELF PAY Community [facility] Number: Effective Repository Date:2018-01-23 01/23/2018 VAL [id number] Primary VAL E PLANKDOB: [place] Insurance:MEDICARE [id number] Community [address] PART A [address], Number: Repository [place] [address]Lio: [id number] Date:2018-01-23 () 01/23/2018 Secondary VAL E PLANKDOB: [place] Insurance:CIGNAPolicy [id number] Community Number: Hospital [id number] Repository Date:0638-38-31IP [facility] 007443FCWOHAHIGPB [place] [address]DJ: 01/23/2018 Tertiary NOT GIVENUNK [place] Insurance:SELF PAY Community [facility] Number: Effective Repository Date:2018-01-23 01/23/2018 VAL E [id number] Primary VAL E PLANKDOB: [place] Insurance:MEDICARE [id number] [facility] AVE[address]T PART A [address], Number: [place]ository [place] [address]Glo: [id number] Date:2018-01-23 () 01/23/2018 Secondary VAL E PLANKDOB: [place] Insurance:CIGNAPolicy [id number] Community Number: [facility] [id number] Repository Date:9668-76-76RU [address]IGMXOMTQYMZ, [place] [address]MF: 01/23/2018 Tertiary NOT GIVENUNK [place] Insurance:SELF PAY Community [facility] Number: Effective Repository Date:2018-01-23 01/23/2018 VAL E [id number] Primary VAL E PLANKDOB: [place] Insurance:STATE FARM [id number] [facility] AVEAPT AUTOPolicy Number: [address] [id number] Repository [place] [address]Rcq: Date:4793-77-97808 N [facility] () [place] [address]JD: 01/23/2018 Secondary VAL E PLANKDOB: [place] Insurance:MEDICARE [id number] Community PART A [facility] Number: Repository [id number] Date:2018-01-23 01/23/2018 Tertiary VAL E PLANKDOB: [place] Insurance:CIGNAPolicy [id number] Community Number: [facility] [id number] Repository Date:0826-81-83DI [address]UOTUESBHYKS, [place] [address]RJ: 01/23/2018 Tertiary NOT GIVENUNK [place] Insurance:SELF PAY Community [facility] Number: Effective Repository Date:2018-01-23 01/01/2018 VAL Gordon [id number] Primary VAL E PLANKDOB: [place] Insurance:MEDICARE [id number] Community [address] PART A [address], Number: Repository [place] [address]Zen: [id number] Date:2017-12-04 () 01/01/2018 Secondary VAL E PLANKDOB: [place] Insurance:CIGNAPolicy [id number] Community Number: [facility] [id number] Repository Date:2521-41-53YI [address]BUGNUTTJUTV, [place] [address]IJ: 01/01/2018 Tertiary NOT GIVENUNK [place] Insurance:SELF PAY Community [facility] Number: Effective Repository Date:2017-12-04 12/04/2017 VAL Gordon [id number] Primary VAL E PLANKDOB: [place] Insurance:MEDICARE [id number] Community [address] PART A [address], Number: Repository [place] [address]Ezf: [id number] Date:2017-11-20 () 12/04/2017 Secondary VAL E PLANKDOB: [place] Insurance:CIGNAPolicy [id number] Community Number: [facility] [id number] Repository Date:6274-68-42KB [address]QMPISHECOQT, [place] [address]LI: 12/04/2017 Tertiary NOT GIVENUNK [place] Insurance:SELF PAY Community [facility] Number: Effective Repository Date:2017-11-20 11/20/2017 VAL Heidi [id number] Primary VAL E PLANKDOB: [place] Insurance:MEDICARE [id number] Community [address] PART A [address], Number: Repository [place] [address]Gyi: [id number] Date:2017-11-06 () 11/20/2017 Secondary VAL E PLANKDOB: [place] Insurance:CIGNAPolicy [id number] Community Number: Hospital [id number] Repository Date:0575-61-20RP [address]PXYDFDXBAEZ, [place] [address]FO: 11/20/2017 Tertiary NOT GIVENUNK [place] Insurance:SELF PAY Community [facility] Number: Effective Repository Date:2017-11-06 11/06/2017 VAL Gordon [id number] Primary VAL E PLANKDOB: [place] S BENJAMIN GASTELUM Insurance:MEDICARE [id number] Community [address] PART A [address], Number: Repository [place] [address]Brs: [id number] Date:2017-10-23 () 11/06/2017 Secondary VAL E PLANKDOB: [place] Insurance:CIGNAPolicy [id number] Community Number: [facility] [id number] Repository Date:0504-03-89TE [address]NVMBQCIDZSM, [place] [address]UE: 11/06/2017 Tertiary NOT GIVENUNK [place] Insurance:SELF PAY Community [facility] Number: Effective Repository Date:2017-10-23 10/23/2017 Val [id number] Primary Val E PlankDOB: [place] S Benjamin Gastelum Insurance:MEDICARE [id number] [address], Number: Repository [place] [address]Ylu: [id number] Date:2017-10-09 () 10/23/2017 Secondary Val E PlankDOB: [place] Insurance:CIGNAPolicy [id number] Community Number: [facility] [id number] Repository Date:8804-13-91EA [address]YOMUHHJTISR, [place] [address]JA: 10/23/2017 Tertiary NOT GIVENUNK [place] Insurance:SELF PAY Community [facility] Number: Effective Repository Date:2017-10-09 10/09/2017 Val Gordon [id number] Primary Val E PlankDOB: [place] Insurance:MEDICARE [id number] [address], Number: Repository [place] [address]Uwd: [id number] Date:2017-09-25 () 10/09/2017 Secondary Val E PlankDOB: [place] Insurance:CIGNAPolicy [id number] Community Number: [facility] [id number] Repository Date:8317-74-91KL [address]VFOLPRJZAMI, [place] [address]SW: 10/09/2017 Tertiary NOT GIVENUNK [place] Insurance:SELF PAY Community [facility] Number: Effective Repository Date:2017-09-25 09/25/2017 Val Gordon [id number] Primary Val E PlankDOB: [place] Insurance:MEDICARE [id number] [address], Number: Repository [place] [address]Njs: [id number] Date:2017-09-11 () 09/25/2017 Secondary Val E PlankDOB: [place] Insurance:CIGNAPolicy [id number] Community Number: [facility] [id number] Repository Date:3713-53-16HQ [address]SPSMWCIMLLC, [place] [address]MY: 09/25/2017 Tertiary NOT GIVENUNK [place] Insurance:SELF PAY Community [facility] Number: Effective Repository Date:2017-09-11 09/11/2017 Val Gordon [id number] Primary Val E PlankDOB: [place] Insurance:MEDICARE [id number] [address], Number: Repository [place] [address]Xsu: [id number] Date:2017-08-28 () 09/11/2017 Secondary Val E PlankDOB: [place] Insurance:CIGNAPolicy [id number] Community Number: [facility] [id number] Repository Date:2902-29-15WH [address]LMOZVFXMGQV, [place] [address]DB: 09/11/2017 Tertiary NOT GIVENUNK [place] Insurance:SELF PAY Community [facility] Number: Effective Repository Date:2017-08-28 08/28/2017 Val Gordon [id number] Primary Val E PlankDOB: [place] Insurance:MEDICARE [id number] [address], Number: Repository [place] [address]Fzo: [id number] Date:2017-08-14 () 08/28/2017 Secondary Val E PlankDOB: [place] Insurance:CIGNAPolicy [id number] Community Number: [facility] [id number] Repository Date:0028-98-85FR [address]RLOXPZCLYEN, [place] [address]UD: 08/28/2017 Tertiary NOT GIVENUNK [place] Insurance:SELF PAY Community [facility] Number: Effective Repository Date:2017-08-14 08/14/2017 Val Gordon [id number] Primary Val E PlankDOB: [place] Insurance:MEDICARE [id number] [facility] [address] PART A [address], Number: Repository [place] [address]Nqv: [id number] Date:2017-07-31 () 08/14/2017 Secondary Val E PlankDOB: [place] Insurance:CIGNAPolicy [id number] Community Number: [facility] [id number] Repository Date:4795-61-10LP [address]ZJEOOLPTPJX, [place] [address]KC: 08/14/2017 Tertiary NOT GIVENUNK [place] Insurance:SELF PAY Community [facility] Number: Effective Repository Date:2017-07-31 07/31/2017 Val Gordon [id number] Primary Val E PlankDOB: [place] Insurance:MEDICARE [id number] Community [address], Number: Repository [place] [address]Rax: [id number] Date:2017-07-17 () 07/31/2017 Secondary Val E PlankDOB: [place] Insurance:CIGNAPolicy [id number] Community Number: Hospital [id number] Repository Date:6085-47-41YH [address]QDHHXLIAHMA, [place] [address]EY: 07/31/2017 Tertiary NOT GIVENUNK [place] Insurance:SELF PAY Community [facility] Number: Effective Repository Date:2017-07-17 07/17/2017 Val Gordon [id number] Primary Val E PlankDOB: [place] S Benjamin Gastelum Insurance:MEDICARE [id number] [facility] [address] PART A [address], Number: Repository [place] [address]Gcv: [id number] Date:2017-07-03 () 07/17/2017 Secondary Val E PlankDOB: [place] Insurance:CIGNAPolicy [id number] Community Number: [facility] [id number] Repository Date:6217-13-61LD [address]HEWITTQTWUA, [place] [address]LK: 07/17/2017 Tertiary NOT GIVENUNK [place] Insurance:SELF PAY Community [facility] Number: Effective Repository Date:2017-07-03 07/03/2017 Val E [id number] Primary Val E PlankDOB: [place] S [place] Gastelum Insurance:MEDICARE [id number] [address], Number: Repository [place] [address]Cqv: [id number] Date:2017-06-19 () 07/03/2017 Secondary Val E PlankDOB: [place] Insurance:CIGNAPolicy [id number] Community Number: [facility] [id number] Repository Date:8552-53-47MM [address]OUSUABXIQTU, [place] [address]IB: 07/03/2017 Tertiary NOT GIVENUNK [place] Insurance:SELF PAY Community [facility] Number: Effective Repository Date:2017-06-19 06/19/2017 Val Gordon [id number] Primary Val E PlankDOB: [place] Insurance:MEDICARE [id number] [facility] [address] PART A [address], Number: [place]ository [place] [address]Ftv: [id number] Date:2017-06-06 () 06/19/2017 Secondary Val E PlankDOB: [place] Insurance:CIGNAPolicy [id number] Community Number: [facility] [id number] Repository Date:9465-94-84TV [address]INYYHIPHAEZSAINT [place], [place] [address]TW: 06/19/2017 Tertiary NOT GIVENUNK [place] Insurance:SELF PAY Community [facility] Number: Effective Repository Date:2017-06-06 06/06/2017 Val Gordon [id number] Primary Val E PlankDOB: [place] Insurance:MEDICARE [id number] [address], Number: Repository [place] [id number]: [id number] Date:2017-05-23 () 06/06/2017 Secondary Val E PlankDOB: [place] Insurance:CIGNAPolicy [id number] Community Number: [facility] [id number] Repository Date:[id number] [id number], [place] [address]VB: 06/06/2017 Tertiary NOT GIVENUNK [place] Insurance:SELF PAY [facility] Number: Effective Repository Date:2017-05-23 05/23/2017 Val Gordon [id number] Primary Val E PlankDOB: [place] Insurance:MEDICARE [id number] [facility] [address], Number: [place]ository [place] [address]Fgd: [id number] Date:2017-05-09 () 05/23/2017 Secondary Val E PlankDOB: [place] Insurance:CIGNAPolicy [id number] Community Number: [facility] [id number] Repository Date:[id number] [address], [place] [address]TL: 05/23/2017 Tertiary NOT GIVENUNK [place] Insurance:SELF PAY [facility] Hospital Number: Effective Repository Date:2017-05-09 05/09/2017 Val Gordon [id number] Primary Val E PlankDOB: [place] Insurance:MEDICARE [id number] Community [address], Number: Repository [place] [address]Zbu: [id number] Date:2017-04-25 () 05/09/2017 Secondary Val E PlankDOB: [place] Insurance:CIGNAPolicy [id number] Community Number: [facility] [id number] Repository Date:1513-14-42PA [address], [place] [address]JH: 05/09/2017 Tertiary NOT GIVENUNK [place] Insurance:SELF PAY [facility] Hospital Number: Effective Repository Date:2017-04-25 04/25/2017 Val Gordon [id number] Primary Val E PlankDOB: [place] Insurance:MEDICARE [id number] Community [address], Number: [place]ository [place] [address]Mhc: [id number] Date:2017-04-11 () 04/25/2017 Secondary Val E PlankDOB: [place] Insurance:CIGNAPolicy [id number] Community Number: [facility] [id number] Repository Date:5559-12-18IR [address], [place] [address]CP: 04/25/2017 Tertiary NOT GIVENUNK [place] Insurance:SELF PAY Community [facility] Hospital Number: Effective Repository Date:2017-04-11 04/11/2017 Val Gordon [id number] Primary Val E PlankDOB: [place] Insurance:MEDICARE [id number] [facility] [address], Number: Repository [place] [address]Fas: [id number] Date:2017-03-28 () 04/11/2017 Secondary Val Mart: [place] Insurance:[facility] [id number] [facility] Number: [facility] [id number] Repository Date:[id number] SANDRA [id number] [place] [address]OO: 04/11/2017 Tertiary NOT GIVENUNK [place] Insurance:SELF PAY [facility]: Effective Repository Date:2017-03-28
== END ==
PROVIDERS: Family Provider Internal Medicine; PCP Internal Medicine; Referring Provider Internal Medicine Nephrology; Visit Provider Internal Medicine Nephrology
DX: N18.3 Chronic kidney disease, stage 3 (moderate) (principal); D63.1 Anemia in chronic kidney disease
CPT/HCPCS: 96372; J0885

== ENCOUNTER → 2018-03-26 11:24 | Outpatient (CLI) | payer MEDICARE, OTHER, SELFPAY ==
[2018-02-26 11:21] VITALS: BMI 48.6
[2018-03-26 12:04] VITALS: BP 125/71; PULSE 98; RESP 16; BMI 45.5
[2018-03-26 12:17] LABS: Hematocrit 35.9 % (37-47); Hemoglobin 11.4 g/dl (12.0-15.0)
[2018-03-26 12:40] LABS: Albumin, Serum 3.2 g/dL (3.2-5.0); BUN 28 mg/dL (7-18); BUN/Creat Ratio 17.6 RATIO (10-20); Calcium,Total 9.4 mg/dL (8.5-10.1); Chloride 108 mmol/L (98-107); Creatinine, Serum 1.59 mg/dL (0.55-1.02); EST Glomerular Filtration Rate 34 mL/min (>60); Est Glom Filt Rate - Afr Amer 41 mL/min (>60); Estimated Creatinine Clearance 25.68 ml/min; Ferritin 70 ng/mL (8-252); Glucose 120 mg/dL (74-106); Iron 99 ug/dL (50-170); Iron Binding Capacity,Total 281 ug/dL (250-450); PERCENT IRON SATURATION 35.2 % (15.0-55.0); Phosphorus 2.4 mg/dL (2.5-4.9); Sodium Level 141 mmol/L (136-145)
== END ==
PROVIDERS: Family Provider Internal Medicine; PCP Internal Medicine; Referring Provider Internal Medicine Nephrology; Visit Provider Internal Medicine Nephrology
DX: N18.3 Chronic kidney disease, stage 3 (moderate) (principal); D63.1 Anemia in chronic kidney disease
CPT/HCPCS: 36591; 80069; 82728; 83540; 83550; 85014; 85018; J0885; A4216

== ENCOUNTER → 2018-04-25 08:26 | Outpatient (CLI) | payer MEDICARE, OTHER, SELFPAY ==
[2018-03-26 12:04] VITALS: BMI 45.5
[2018-04-25 08:43] VITALS: BP 125/80; PULSE 90; RESP 16; TEMP 37; O2SAT 94; BMI 46.0
[2018-04-25 09:17] LABS: Hematocrit 32.8 % (37-47); Hemoglobin 10.4 g/dl (12.0-15.0)
[2018-04-25 09:31] LABS: Albumin, Serum 3.2 g/dL (3.2-5.0); BUN 31 mg/dL (7-18); BUN/Creat Ratio 17.8 RATIO (10-20); Calcium,Total 8.8 mg/dL (8.5-10.1); Chloride 110 mmol/L (98-107); Creatinine, Serum 1.74 mg/dL (0.55-1.02); EST Glomerular Filtration Rate 30 mL/min (>60); Est Glom Filt Rate - Afr Amer 37 mL/min (>60); Estimated Creatinine Clearance 23.46 ml/min; Glucose 179 mg/dL (74-106); Phosphorus 3.3 mg/dL (2.5-4.9); Sodium Level 142 mmol/L (136-145)
[2018-04-25 17:11] LABS: Xtra Tube EP Lab EXTRA TUBE
[2018-04-25 17:11] LABS: Xtra Tube EP Lab EXTRA TUBE
== END ==
PROVIDERS: Family Provider Internal Medicine; PCP Internal Medicine; Referring Provider Internal Medicine Nephrology; Visit Provider Internal Medicine Nephrology
DX: N18.3 Chronic kidney disease, stage 3 (moderate) (principal); D63.1 Anemia in chronic kidney disease
CPT/HCPCS: 36415; 80069; 85014; 85018; 96372; 96523; J0885; A4216

== ENCOUNTER → 2018-05-21 08:39 | Outpatient (CLI) | payer MEDICARE, OTHER, SELFPAY ==
[2018-04-25 08:43] VITALS: BMI 46.0
[2018-05-21 09:04] LABS: Hematocrit 35.8 % (37-47); Hemoglobin 11.2 g/dl (12.0-15.0)
[2018-05-21 09:36] VITALS: BMI 46.0
[2018-05-21 11:49] LABS: Albumin, Serum 3.4 g/dL (3.2-5.0); BUN 40 mg/dL (7-18); BUN/Creat Ratio 22.2 RATIO (10-20); Calcium,Total 9.1 mg/dL (8.5-10.1); Chloride 110 mmol/L (98-107); EST Glomerular Filtration Rate 29 mL/min (>60); Est Glom Filt Rate - Afr Amer 35 mL/min (>60); Glucose 123 mg/dL (74-106); Phosphorus 3.9 mg/dL (2.5-4.9); Potassium 4.4 mmol/L (3.5-5.1); Sodium Level 142 mmol/L (136-145)
[2018-05-21 12:08] LABS: PTHIN 147.7 pg/mL (18.4-80.1)
[2018-05-21 16:50] LABS: Xtra Tube EP Lab EXTRA TUBE
== END ==
PROVIDERS: Family Provider Internal Medicine; PCP Internal Medicine; Referring Provider Internal Medicine Nephrology; Visit Provider Internal Medicine Nephrology
DX: N18.3 Chronic kidney disease, stage 3 (moderate) (principal); D63.1 Anemia in chronic kidney disease; N25.81 Secondary hyperparathyroidism of renal origin
CPT/HCPCS: 36591; 80069; 83970; 85014; 85018; A4216

== ENCOUNTER → 2018-06-18 08:42 | Outpatient (CLI) | payer MEDICARE, OTHER, SELFPAY ==
[2018-04-25 08:43] VITALS: BMI 46.0
[2018-06-18 09:14] LABS: Hematocrit 33.1 % (37-47); Hemoglobin 10.4 g/dl (12.0-15.0)
[2018-06-18 09:37] LABS: Albumin, Serum 3.4 g/dL (3.2-5.0); BUN 35 mg/dL (7-18); BUN/Creat Ratio 20.7 RATIO (10-20); Chloride 109 mmol/L (98-107); Creatinine, Serum 1.69 mg/dL (0.55-1.02); EST Glomerular Filtration Rate 31 mL/min (>60); Est Glom Filt Rate - Afr Amer 38 mL/min (>60); Ferritin 75 ng/mL (8-252); Glucose 116 mg/dL (74-106); Iron 83 ug/dL (50-170); Iron Binding Capacity,Total 303 ug/dL (250-450); Phosphorus 3.6 mg/dL (2.5-4.9); Sodium Level 141 mmol/L (136-145)
[2018-06-18 09:45] VITALS: BP 132/63; PULSE 85; RESP 16; TEMP 36.2; O2SAT 99; BMI 46.0
== END ==
PROVIDERS: Family Provider Internal Medicine; PCP Internal Medicine; Referring Provider Internal Medicine Nephrology; Visit Provider Internal Medicine Nephrology
DX: N18.3 Chronic kidney disease, stage 3 (moderate) (principal); D63.1 Anemia in chronic kidney disease
CPT/HCPCS: 36415; 80069; 82728; 83540; 83550; 85014; 85018; 96372; J0885

== ENCOUNTER → 2018-07-16 11:22 | Outpatient (CLI) | payer MEDICARE, OTHER, SELFPAY ==
[2018-06-18 09:45] VITALS: BMI 46.0
[2018-07-16 12:17] LABS: Albumin, Serum 3.5 g/dL (3.2-5.0); BUN 41 mg/dL (7-18); BUN/Creat Ratio 25.2 RATIO (10-20); Calcium,Total 8.9 mg/dL (8.5-10.1); Chloride 111 mmol/L (98-107); Creatinine, Serum 1.63 mg/dL (0.55-1.02); EST Glomerular Filtration Rate 33 mL/min (>60); Est Glom Filt Rate - Afr Amer 40 mL/min (>60); Glucose 135 mg/dL (74-106); Phosphorus 2.9 mg/dL (2.5-4.9); Potassium 4.7 mmol/L (3.5-5.1); Sodium Level 140 mmol/L (136-145)
[2018-07-16 12:23] LABS: Absolute Neutrophil Count 2.9 X10^3/uL (2.0-7.7); Basophil# 0.02 X10^3/uL; Basophil% 0.4 % (0-1); Eosinophil# 0.14 X10^3/uL; Eosinophils% 2.9 % (0-5); Hematocrit 32.9 % (37-47); Hemoglobin 10.5 g/dl (12.0-15.0); Mean Corp Hgb Conc 31.9 g/gl (32-36); Mean Corpuscular Hgb 31.2 pg (27.0-32.0); Mean Corpuscular Volume 97.6 fL (81-99); Mean Platelet Vol. 9.3 fl (6.2-12.0); Monocyte# 0.45 X10^3/uL; Monocyte% 9.4 % (0-10); Neutrophil % 60.3 % (47-70); Platelet Count 208 K/mm3 (150-450); RBC Distribution Width CV 14.6 % (11.6-14.6); RBC Distribution Width SD 52.6 fl (35.1-43.9); Red Blood Count 3.37 M/mm3 (4.2-5.4); White Blood Count 4.8 K/mm3 (4.4-11.0)
[2018-07-16 12:26] LABS: Protein, Urine (Random) 43.5 mg/dL (<11.9); Protein:Creat Ratio 369 mg/g CRE (0-200)
[2018-07-16 12:40] LABS: POSITIVE COUNT NO; POSITIVE DIFFERENTIAL NO; POSITIVE MORPHOLOGY NO
[2018-07-16 14:26] LABS: Vitamin D,25 Hydroxy 25.2 ng/mL (29.95-100.01)
[2018-07-16 14:30] LABS: PTHIN 180.8 pg/mL (18.4-80.1)
== END ==
PROVIDERS: Family Provider Internal Medicine; PCP Internal Medicine; Referring Provider Internal Medicine Nephrology; Visit Provider Internal Medicine Nephrology
DX: N18.3 Chronic kidney disease, stage 3 (moderate) (principal); D63.1 Anemia in chronic kidney disease
CPT/HCPCS: 80069; 82306; 82570; 83970; 84156; 85025; Q5106

== ENCOUNTER → 2018-08-13 08:11 | Outpatient (CLI) | payer MEDICARE, OTHER, SELFPAY ==
[2018-06-18 09:45] VITALS: BMI 46.0
[2018-08-13 08:41] VITALS: BP 141/78; PULSE 85; RESP 16; TEMP 36.5; O2SAT 99; BMI 47.8
[2018-08-13 08:44] LABS: Hematocrit 32.2 % (37-47); Hemoglobin 10.2 g/dl (12.0-15.0)
[2018-08-13 08:56] LABS: Anion Gap 7 (5-15); BUN 37 mg/dL (7-18); BUN/Creat Ratio 21.8 RATIO (10-20); Calcium,Total 8.8 mg/dL (8.5-10.1); Chloride 109 mmol/L (98-107); Cholesterol 126 mg/dL (200); EST Glomerular Filtration Rate 31 mL/min (>60); Est Glom Filt Rate - Afr Amer 38 mL/min (>60); Estimated Creatinine Clearance 24.02 ml/min; Glucose 81 mg/dL (74-106); High Density Lipoprotein 52 mg/dL; Potassium 4.5 mmol/L (3.5-5.1); Sodium Level 141 mmol/L (136-145); Triglycerides 124 mg/dL; Very Low Density Lipoprotein 25 mg/dL (5-40)
[2018-08-13 09:06] LABS: Hemoglobin A1c 6.1 % (4.2-6.3)
[2018-08-13] MEDS: Epoetin Alfa epbx 10,000 UNITS/ML 13000 UNIT SC (09:12)
== END ==
PROVIDERS: Family Provider Internal Medicine; PCP Internal Medicine; Referring Provider Internal Medicine Nephrology; Visit Provider Internal Medicine Nephrology
DX: E11.22 Type 2 diabetes mellitus with diabetic chronic kidney disease (principal); N18.4 Chronic kidney disease, stage 4 (severe); D63.1 Anemia in chronic kidney disease; E78.49 Other hyperlipidemia; Z79.4 Long term (current) use of insulin
CPT/HCPCS: 36415; 36591; 80048; 80061; 83036; 85014; 85018; 96372; A4216; Q5106

== ENCOUNTER → 2018-09-10 09:29 | Outpatient (CLI) | payer MEDICARE, OTHER, SELFPAY ==
[2018-08-13 08:41] VITALS: BMI 47.8
[2018-09-10 09:54] VITALS: BP 136/71; PULSE 94; RESP 18; TEMP 36.2; O2SAT 100; BMI 47.2
[2018-09-10 09:55] LABS: Hematocrit 32.5 % (37-47); Hemoglobin 10.3 g/dl (12.0-15.0)
[2018-09-10 10:15] LABS: Albumin, Serum 3.4 g/dL (3.2-5.0); BUN 38 mg/dL (7-18); BUN/Creat Ratio 21.8 RATIO (10-20); Calcium,Total 8.8 mg/dL (8.5-10.1); Chloride 112 mmol/L (98-107); Creatinine, Serum 1.74 mg/dL (0.55-1.02); EST Glomerular Filtration Rate 30 mL/min (>60); Est Glom Filt Rate - Afr Amer 37 mL/min (>60); Estimated Creatinine Clearance 23.46 ml/min; Glucose 123 mg/dL (74-106); Phosphorus 2.9 mg/dL (2.5-4.9); Potassium 4.6 mmol/L (3.5-5.1); Sodium Level 143 mmol/L (136-145)
[2018-09-10] MEDS: Epoetin Alfa epbx 10,000 UNITS/ML 13000 UNIT SC (10:28)
== END ==
PROVIDERS: Family Provider Internal Medicine; PCP Internal Medicine; Referring Provider Internal Medicine Nephrology; Visit Provider Internal Medicine Nephrology
DX: N18.3 Chronic kidney disease, stage 3 (moderate) (principal); D63.1 Anemia in chronic kidney disease
CPT/HCPCS: 36591; 80069; 85014; 85018; 96372; A4216; Q5106

== ENCOUNTER → 2018-10-08 08:23 | Outpatient (CLI) | payer MEDICARE, OTHER, SELFPAY ==
[2018-09-10 09:54] VITALS: BMI 47.2
[2018-10-08 08:50] LABS: Hematocrit 33.6 % (37-47); Hemoglobin 10.7 g/dL (12.0-15.0)
[2018-10-08 08:51] VITALS: BP 128/77; PULSE 83; RESP 18; TEMP 36.2; O2SAT 98; BMI 47.2
[2018-10-08 09:11] LABS: Ferritin 55 ng/mL (8-252); Iron 78 ug/dL (50-170); Iron Binding Capacity,Total 311 ug/dL (250-450); PERCENT IRON SATURATION 25.1 % (15.0-55.0)
== END ==
PROVIDERS: Family Provider Internal Medicine; PCP Internal Medicine; Referring Provider Internal Medicine Nephrology; Visit Provider Internal Medicine Nephrology
DX: N18.3 Chronic kidney disease, stage 3 (moderate) (principal); D63.1 Anemia in chronic kidney disease
CPT/HCPCS: 36592; 82728; 83540; 83550; 85014; 85018; A4216

== ENCOUNTER → 2018-11-05 08:08 | Outpatient (CLI) | payer MEDICARE, OTHER, SELFPAY ==
[2018-10-08 08:51] VITALS: BMI 47.2
[2018-11-05 08:32] LABS: Hematocrit 32.8 % (37-47); Hemoglobin 10.5 g/dL (12.0-15.0)
[2018-11-05 08:54] LABS: Albumin, Serum 3.2 g/dL (3.2-5.0); BUN 37 mg/dL (7-18); BUN/Creat Ratio 19.5 RATIO (10-20); Calcium,Total 9.1 mg/dL (8.5-10.1); Chloride 112 mmol/L (98-107); EST Glomerular Filtration Rate 27 mL/min (>60); Est Glom Filt Rate - Afr Amer 33 mL/min (>60); Glucose 95 mg/dL (74-106); Phosphorus 3.3 mg/dL (2.5-4.9); Potassium 4.1 mmol/L (3.5-5.1); Sodium Level 145 mmol/L (136-145)
== END ==
PROVIDERS: Family Provider Internal Medicine; PCP Internal Medicine; Referring Provider Internal Medicine Nephrology; Visit Provider Internal Medicine Nephrology
DX: N18.3 Chronic kidney disease, stage 3 (moderate) (principal); D63.1 Anemia in chronic kidney disease
CPT/HCPCS: 36591; 80069; 85014; 85018; A4216

== ENCOUNTER → 2018-12-03 08:03 | Outpatient (CLI) | payer MEDICARE, OTHER, SELFPAY ==
[2018-10-08 08:51] VITALS: BMI 47.2
[2018-12-03 08:28] LABS: Hematocrit 32.8 % (37-47); Hemoglobin 10.3 g/dL (12.0-15.0)
[2018-12-03 08:41] VITALS: BP 132/69; PULSE 81; RESP 18; TEMP 36.2; O2SAT 100; BMI 47.2
[2018-12-03] MEDS: Epoetin Alfa epbx 10,000 UNITS/ML 13000 UNIT SC (08:46)
== END ==
PROVIDERS: Family Provider Internal Medicine; PCP Internal Medicine; Referring Provider Internal Medicine Nephrology; Visit Provider Internal Medicine Nephrology
DX: N18.3 Chronic kidney disease, stage 3 (moderate) (principal); D63.1 Anemia in chronic kidney disease
CPT/HCPCS: 36591; 85014; 85018; 96372; A4216; Q5106

== ENCOUNTER → 2018-12-31 08:33 | Outpatient (CLI) | payer MEDICARE, OTHER, SELFPAY ==
[2018-12-03 08:41] VITALS: BMI 47.2
[2018-12-31 08:54] LABS: Hematocrit 32.8 % (37-47); Hemoglobin 10.4 g/dL (12.0-15.0)
[2018-12-31 08:55] VITALS: BP 142/64; PULSE 92; RESP 16; TEMP 36.6; O2SAT 96; BMI 47.8
[2018-12-31 09:15] LABS: Albumin, Serum 3.6 g/dL (3.2-5.0); BUN 50 mg/dL (7-18); BUN/Creat Ratio 26.6 RATIO (10-20); Calcium,Total 10.2 mg/dL (8.5-10.1); Chloride 111 mmol/L (98-107); Creatinine, Serum 1.88 mg/dL (0.55-1.02); EST Glomerular Filtration Rate 28 mL/min (>60); Est Glom Filt Rate - Afr Amer 34 mL/min (>60); Estimated Creatinine Clearance 21.72 ml/min; Ferritin 73 ng/mL (8-252); Glucose 71 mg/dL (74-106); Iron 68 ug/dL (50-170); Iron Binding Capacity,Total 328 ug/dL (250-450); PERCENT IRON SATURATION 20.7 % (15.0-55.0); Phosphorus 4.2 mg/dL (2.5-4.9); Potassium 4.3 mmol/L (3.5-5.1); Sodium Level 142 mmol/L (136-145)
[2018-12-31] MEDS: Epoetin Alfa epbx 10,000 UNITS/ML 13000 UNIT SC (09:16)
== END ==
PROVIDERS: Family Provider Internal Medicine; PCP Internal Medicine; Referring Provider Internal Medicine Nephrology; Visit Provider Internal Medicine Nephrology
DX: N18.3 Chronic kidney disease, stage 3 (moderate) (principal); D63.1 Anemia in chronic kidney disease
CPT/HCPCS: 36591; 80069; 82728; 83540; 83550; 85014; 85018; 96372; A4216; Q5106

== ENCOUNTER → 2019-01-28 08:12 | Outpatient (CLI) | payer MEDICARE, OTHER, SELFPAY ==
[2018-12-31 08:55] VITALS: BMI 47.8
[2019-01-28 08:56] LABS: Albumin, Serum 3.4 g/dL (3.2-5.0); BUN 48 mg/dL (7-18); BUN/Creat Ratio 24.1 RATIO (10-20); Calcium,Total 9.9 mg/dL (8.5-10.1); Chloride 112 mmol/L (98-107); Creatinine, Serum 1.99 mg/dL (0.55-1.02); EST Glomerular Filtration Rate 26 mL/min (>60); Est Glom Filt Rate - Afr Amer 31 mL/min (>60); Glucose 103 mg/dL (74-106); Hematocrit 33.6 % (37-47); Hemoglobin 10.4 g/dL (12.0-15.0); Phosphorus 4.7 mg/dL (2.5-4.9); Potassium 4.2 mmol/L (3.5-5.1); Sodium Level 142 mmol/L (136-145)
[2019-01-28 09:01] VITALS: BP 123/57; PULSE 95; RESP 18; TEMP 36.1; O2SAT 94; BMI 47.8
[2019-01-28] MEDS: Epoetin Alfa epbx 10,000 UNITS/ML 13000 UNIT SC (09:12)
== END ==
PROVIDERS: Family Provider Internal Medicine; PCP Internal Medicine; Referring Provider Internal Medicine Nephrology; Visit Provider Internal Medicine Nephrology
DX: N18.3 Chronic kidney disease, stage 3 (moderate) (principal); D63.1 Anemia in chronic kidney disease
CPT/HCPCS: 36591; 80069; 85014; 85018; 96372; A4216; Q5106

== ENCOUNTER → 2019-02-25 08:20 | Outpatient (CLI) | payer MEDICARE, OTHER, SELFPAY ==
[2018-12-31 08:55] VITALS: BMI 47.8
[2019-01-28 09:01] VITALS: BMI 47.8
[2019-02-25 08:56] LABS: Hematocrit 33.1 % (37-47); Hemoglobin 10.4 g/dL (12.0-15.0)
[2019-02-25 09:12] LABS: Albumin, Serum 3.5 g/dL (3.2-5.0); BUN 51 mg/dL (7-18); BUN/Creat Ratio 24.8 RATIO (10-20); Calcium,Total 9.1 mg/dL (8.5-10.1); Chloride 107 mmol/L (98-107); Creatinine, Serum 2.06 mg/dL (0.55-1.02); EST Glomerular Filtration Rate 25 mL/min (>60); Est Glom Filt Rate - Afr Amer 30 mL/min (>60); Glucose 77 mg/dL (74-106); Potassium 4.2 mmol/L (3.5-5.1); Sodium Level 142 mmol/L (136-145)
[2019-02-25 09:26] LABS: Cholesterol 124 mg/dL (200); High Density Lipoprotein 52 mg/dL; Triglycerides 91 mg/dL; Very Low Density Lipoprotein 18 mg/dL (5-40)
[2019-02-25] MEDS: Epoetin Alfa epbx 10,000 UNITS/ML 13000 UNIT SC (09:26)
[2019-02-25 09:34] VITALS: BP 129/63; PULSE 79; RESP 16; TEMP 36.1; O2SAT 99; BMI 47.8
[2019-02-25 10:07] LABS: Hemoglobin A1c 5.9 % (4.2-6.3)
== END ==
PROVIDERS: Family Provider Internal Medicine; PCP Internal Medicine; Referring Provider Internal Medicine Nephrology; Visit Provider Internal Medicine Nephrology
DX: E11.22 Type 2 diabetes mellitus with diabetic chronic kidney disease (principal); N18.4 Chronic kidney disease, stage 4 (severe); D63.1 Anemia in chronic kidney disease; E78.2 Mixed hyperlipidemia; Z79.4 Long term (current) use of insulin
CPT/HCPCS: 36591; 80061; 80069; 83036; 85014; 85018; 96372; A4216; Q5106

== ENCOUNTER → 2019-03-25 07:51 | Outpatient (CLI) | payer MEDICARE, OTHER, SELFPAY ==
[2018-12-31 08:55] VITALS: BMI 47.8
[2019-02-25 09:34] VITALS: BMI 47.8
[2019-03-25 08:49] LABS: AST(SGOT) 15 U/L (15-37); Alanine Aminotransfer ALT/SGPT 28 U/L (13-56); Albumin, Serum 3.6 g/dL (3.2-5.0); Alkaline Phosphatase 54 U/L (45-117); Anion Gap 9 (5-15); BUN 45 mg/dL (7-18); BUN/Creat Ratio 21.6 RATIO (10-20); Bilirubin, Direct 0.06 mg/dL (0.00-0.30); Calcium,Total 9.3 mg/dL (8.5-10.1); Chloride 104 mmol/L (98-107); Creatinine, Serum 2.08 mg/dL (0.55-1.02); EST Glomerular Filtration Rate 25 mL/min (>60); Est Glom Filt Rate - Afr Amer 30 mL/min (>60); Globulin 3.7 g/dL (2.2-4.2); Glucose 89 mg/dL (74-106); Hematocrit 34.7 % (37-47); Hemoglobin 10.9 g/dL (12.0-15.0); Mean Corp Hgb Conc 31.4 g/dL (32-36); Mean Corpuscular Hgb 30.9 pg (27.0-32.0); Mean Corpuscular Volume 98.3 fL (81-99); Mean Platelet Vol. 9.5 fl (6.2-12.0); Phosphorus 3.5 mg/dL (2.5-4.9); Platelet Count 230 K/mm3 (150-450); Potassium 4.2 mmol/L (3.5-5.1); Protein, Total 7.3 g/dL (6.4-8.2); RBC Distribution Width SD 50.4 fl (35.1-43.9); Red Blood Count 3.53 M/mm3 (4.2-5.4); Sodium Level 138 mmol/L (136-145); White Blood Count 7.1 K/mm3 (4.4-11.0)
[2019-03-25 08:49] LABS: Protein, Urine (Random) 11.8 mg/dL (<11.9); Protein:Creat Ratio 245 mg/g CRE (0-200)
[2019-03-25 08:54] LABS: PTHIN 112.9 pg/mL (18.4-80.1)
[2019-03-25 08:55] LABS: Vitamin D,25 Hydroxy 31.4 ng/mL (29.95-100.01)
== END ==
PROVIDERS: Family Provider Internal Medicine; PCP Internal Medicine; Referring Provider Internal Medicine Nephrology; Visit Provider Internal Medicine Nephrology
DX: N18.3 Chronic kidney disease, stage 3 (moderate) (principal); D63.1 Anemia in chronic kidney disease; N25.81 Secondary hyperparathyroidism of renal origin; R80.9 Proteinuria, unspecified
CPT/HCPCS: 36591; 80048; 80076; 82306; 82570; 83970; 84100; 84156; 85027; A4216

== ENCOUNTER → 2019-04-22 08:06 | Outpatient (CLI) | payer MEDICARE, OTHER, SELFPAY ==
[2019-02-25 09:34] VITALS: BMI 47.8
[2019-04-22 08:36] LABS: Hematocrit 31.9 % (37-47); Hemoglobin 10.1 g/dL (12.0-15.0)
[2019-04-22 08:51] VITALS: BP 141/72; PULSE 89; RESP 18; TEMP 36.9; O2SAT 98; BMI 49.0
[2019-04-22 08:54] LABS: Albumin, Serum 3.3 g/dL (3.2-5.0); BUN 35 mg/dL (7-18); BUN/Creat Ratio 18.7 RATIO (10-20); Chloride 114 mmol/L (98-107); Creatinine, Serum 1.87 mg/dL (0.55-1.02); EST Glomerular Filtration Rate 28 mL/min (>60); Est Glom Filt Rate - Afr Amer 34 mL/min (>60); Ferritin 68 ng/mL (8-252); Glucose 75 mg/dL (74-106); Iron 81 ug/dL (50-170); Iron Binding Capacity,Total 321 ug/dL (250-450); PERCENT IRON SATURATION 25.2 % (15.0-55.0); Potassium 4.2 mmol/L (3.5-5.1); Sodium Level 144 mmol/L (136-145)
[2019-04-22] MEDS: Epoetin Alfa epbx 10,000 UNITS/ML 13000 UNIT SC (08:59)
== END ==
PROVIDERS: Family Provider Internal Medicine; PCP Internal Medicine; Referring Provider Internal Medicine Nephrology; Visit Provider Internal Medicine Nephrology
DX: N18.3 Chronic kidney disease, stage 3 (moderate) (principal); D63.1 Anemia in chronic kidney disease
CPT/HCPCS: 36415; 36592; 80069; 82728; 83540; 83550; 85014; 85018; 96372; A4216; Q5106

== ENCOUNTER → 2019-05-20 08:22 | Outpatient (CLI) | payer MEDICARE, OTHER, SELFPAY ==
[2019-02-25 09:34] VITALS: BMI 47.8
[2019-04-22 08:51] VITALS: BMI 49.0
[2019-05-20 08:42] LABS: Hematocrit 31.8 % (37-47); Hemoglobin 10.2 g/dL (12.0-15.0)
[2019-05-20 08:47] VITALS: BP 144/73; PULSE 91; RESP 18; TEMP 36.3; O2SAT 100; BMI 47.8
[2019-05-20 08:54] LABS: Albumin, Serum 3.2 g/dL (3.2-5.0); BUN 38 mg/dL (7-18); BUN/Creat Ratio 19.1 RATIO (10-20); Calcium,Total 9.3 mg/dL (8.5-10.1); Chloride 109 mmol/L (98-107); Creatinine, Serum 1.99 mg/dL (0.55-1.02); EST Glomerular Filtration Rate 26 mL/min (>60); Est Glom Filt Rate - Afr Amer 31 mL/min (>60); Estimated Creatinine Clearance 20.21 ml/min; Glucose 104 mg/dL (74-106); Potassium 4.2 mmol/L (3.5-5.1); Sodium Level 141 mmol/L (136-145)
[2019-05-20] MEDS: Epoetin Alfa epbx 10,000 UNITS/ML 13000 UNIT SC (09:25)
== END ==
PROVIDERS: PCP Internal Medicine; Referring Provider Internal Medicine Nephrology; Visit Provider Internal Medicine Nephrology
DX: N18.3 Chronic kidney disease, stage 3 (moderate) (principal); D63.1 Anemia in chronic kidney disease
CPT/HCPCS: 80069; 85014; 85018; 96372; Q5106

== ENCOUNTER → 2019-06-17 07:55 | Outpatient (CLI) | payer MEDICARE, OTHER, SELFPAY ==
[2019-04-22 08:51] VITALS: BMI 49.0
[2019-05-20 08:47] VITALS: BMI 47.8
[2019-06-17 08:12] VITALS: BP 125/59; PULSE 88; RESP 16; TEMP 36.6; O2SAT 99; BMI 47.8
[2019-06-17 08:35] LABS: Hematocrit 32.8 % (37-47); Hemoglobin 10.6 g/dL (12.0-15.0)
[2019-06-17 08:49] LABS: Albumin, Serum 3.5 g/dL (3.2-5.0); BUN 40 mg/dL (7-18); BUN/Creat Ratio 20.3 RATIO (10-20); Calcium,Total 9.5 mg/dL (8.5-10.1); Chloride 106 mmol/L (98-107); Creatinine, Serum 1.97 mg/dL (0.55-1.02); EST Glomerular Filtration Rate 26 mL/min (>60); Est Glom Filt Rate - Afr Amer 32 mL/min (>60); Estimated Creatinine Clearance 20.41 ml/min; Glucose 132 mg/dL (74-106); Iron 87 ug/dL (50-170); Iron Binding Capacity,Total 308 ug/dL (250-450); PERCENT IRON SATURATION 28.2 % (15.0-55.0); Potassium 4.4 mmol/L (3.5-5.1); Sodium Level 139 mmol/L (136-145)
== END ==
PROVIDERS: PCP Internal Medicine; Referring Provider Internal Medicine Nephrology; Visit Provider Internal Medicine Nephrology
DX: N18.3 Chronic kidney disease, stage 3 (moderate) (principal); D63.1 Anemia in chronic kidney disease
CPT/HCPCS: 36591; 80069; 83540; 83550; 85014; 85018; A4216

== ENCOUNTER → 2019-07-15 07:51 | Outpatient (CLI) | payer MEDICARE, OTHER, SELFPAY ==
[2019-05-20 08:47] VITALS: BMI 47.8
[2019-06-17 08:12] VITALS: BMI 47.8
[2019-07-15 08:15] VITALS: BP 131/50; PULSE 97; RESP 16; TEMP 36.9; BMI 49.6
[2019-07-15] MEDS: 0.9 % NaCl (Sterile) Posiflush 10 mL IV (08:15)
[2019-07-15] MEDS: 0.9% Saline Lock 10 ML Syringe IV (08:15)
[2019-07-15 08:23] LABS: Hematocrit 32.2 % (37-47); Hemoglobin 10.2 g/dL (12.0-15.0)
[2019-07-15 08:34] LABS: Albumin, Serum 3.3 g/dL (3.2-5.0); BUN 42 mg/dL (7-18); BUN/Creat Ratio 20.2 RATIO (10-20); Calcium,Total 9.5 mg/dL (8.5-10.1); Chloride 109 mmol/L (98-107); Creatinine, Serum 2.08 mg/dL (0.55-1.02); EST Glomerular Filtration Rate 25 mL/min (>60); Est Glom Filt Rate - Afr Amer 30 mL/min (>60); Estimated Creatinine Clearance 19.33 ml/min; Glucose 109 mg/dL (74-106); Potassium 4.5 mmol/L (3.5-5.1); Sodium Level 142 mmol/L (136-145)
[2019-07-15] MEDS: Epoetin Alfa epbx 10,000 UNITS/ML 13000 UNIT SC (08:50)
== END ==
PROVIDERS: PCP Internal Medicine; Referring Provider Internal Medicine Nephrology; Visit Provider Internal Medicine Nephrology
DX: N18.3 Chronic kidney disease, stage 3 (moderate) (principal); D63.1 Anemia in chronic kidney disease
CPT/HCPCS: 80069; 85014; 85018; 96372; A4216; Q5106

== ENCOUNTER → 2019-08-12 07:55 | Outpatient (CLI) | payer MEDICARE, OTHER, SELFPAY ==
[2019-06-17 08:12] VITALS: BMI 47.8
[2019-07-15 08:15] VITALS: BMI 49.6
[2019-08-12] MEDS: 0.9 % NaCl (Sterile) Posiflush 10 mL IV (08:10)
[2019-08-12] MEDS: 0.9% NaCl VAD Flush IV (08:10)
[2019-08-12 08:31] LABS: Hematocrit 32.8 % (37-47); Hemoglobin 10.4 g/dL (12.0-15.0)
[2019-08-12 08:37] VITALS: BP 120/69; PULSE 86; RESP 16; TEMP 36.6; O2SAT 99; BMI 48.6
[2019-08-12 08:47] LABS: Albumin, Serum 3.2 g/dL (3.2-5.0); BUN 30 mg/dL (7-18); Calcium,Total 9.4 mg/dL (8.5-10.1); Chloride 107 mmol/L (98-107); Creatinine, Serum 1.88 mg/dL (0.55-1.02); EST Glomerular Filtration Rate 28 mL/min (>60); Est Glom Filt Rate - Afr Amer 34 mL/min (>60); Estimated Creatinine Clearance 21.39 ml/min; Ferritin 68 ng/mL (8-252); Glucose 111 mg/dL (74-106); Iron 84 ug/dL (50-170); Iron Binding Capacity,Total 303 ug/dL (250-450); PERCENT IRON SATURATION 27.7 % (15.0-55.0); Potassium 4.4 mmol/L (3.5-5.1); Sodium Level 140 mmol/L (136-145)
[2019-08-12] MEDS: Epoetin Alfa epbx 10,000 UNITS/ML 13000 UNIT SC (08:50)
[2019-08-12 08:53] LABS: Hemoglobin A1c 6.2 % (3.8-5.6)
[2019-08-12 16:27] LABS: Xtra Tube EP Lab EXTRA TUBE
== END ==
PROVIDERS: PCP Internal Medicine; Referring Provider Internal Medicine Nephrology; Visit Provider Internal Medicine Nephrology
DX: E11.22 Type 2 diabetes mellitus with diabetic chronic kidney disease (principal); N18.3 Chronic kidney disease, stage 3 (moderate); D63.1 Anemia in chronic kidney disease; Z79.4 Long term (current) use of insulin
CPT/HCPCS: 36591; 80069; 82728; 83036; 83540; 83550; 85014; 85018; 96372; A4216; Q5106

== ENCOUNTER → 2019-09-09 07:56 | Outpatient (CLI) | payer MEDICARE, OTHER, SELFPAY ==
[2019-07-15 08:15] VITALS: BMI 49.6
[2019-08-12 08:37] VITALS: BMI 48.6
[2019-09-09 08:25] LABS: Hematocrit 33.4 % (37-47); Hemoglobin 10.5 g/dL (12.0-15.0)
[2019-09-09 08:38] LABS: Albumin, Serum 3.4 g/dL (3.2-5.0); BUN 39 mg/dL (7-18); BUN/Creat Ratio 19.5 RATIO (10-20); Calcium,Total 9.5 mg/dL (8.5-10.1); Chloride 106 mmol/L (98-107); EST Glomerular Filtration Rate 26 mL/min (>60); Est Glom Filt Rate - Afr Amer 31 mL/min (>60); Glucose 136 mg/dL (74-106); Phosphorus 3.3 mg/dL (2.5-4.9); Potassium 4.3 mmol/L (3.5-5.1); Sodium Level 139 mmol/L (136-145)
[2019-09-09 08:42] VITALS: BP 126/62; PULSE 89; RESP 16; TEMP 36.3; O2SAT 98; BMI 49.6
== END ==
PROVIDERS: PCP Internal Medicine; Referring Provider Internal Medicine Nephrology; Visit Provider Internal Medicine Nephrology
DX: N18.3 Chronic kidney disease, stage 3 (moderate) (principal); D63.1 Anemia in chronic kidney disease
CPT/HCPCS: 80069; 85014; 85018

== ENCOUNTER → 2019-10-07 07:56 | Outpatient (CLI) | payer MEDICARE, OTHER, SELFPAY ==
[2019-08-12 08:37] VITALS: BMI 48.6
[2019-09-09 08:42] VITALS: BMI 49.6
[2019-10-07 08:26] VITALS: BP 141/98; PULSE 96; RESP 16; TEMP 35.7; O2SAT 100; BMI 47.8
[2019-10-07 08:30] LABS: Hematocrit 31.1 % (37-47); Hemoglobin 9.8 g/dL (12.0-15.0); Mean Corp Hgb Conc 31.5 g/dL (32-36); Mean Corpuscular Hgb 31.1 pg (27.0-32.0); Mean Corpuscular Volume 98.7 fL (81-99); Mean Platelet Vol. 9.4 fl (6.2-12.0); Platelet Count 175 K/mm3 (150-450); RBC Distribution Width SD 49.6 fl (35.1-43.9); Red Blood Count 3.15 M/mm3 (4.2-5.4); White Blood Count 8.7 K/mm3 (4.4-11.0)
[2019-10-07 08:40] LABS: Albumin, Serum 3.3 g/dL (3.2-5.0); BUN 38 mg/dL (7-18); Chloride 107 mmol/L (98-107); EST Glomerular Filtration Rate 26 mL/min (>60); Est Glom Filt Rate - Afr Amer 31 mL/min (>60); Glucose 155 mg/dL (74-106); Phosphorus 3.1 mg/dL (2.5-4.9); Potassium 4.4 mmol/L (3.5-5.1); Sodium Level 138 mmol/L (136-145)
[2019-10-07] MEDS: Epoetin Alfa epbx 10,000 UNITS/ML 13000 UNIT SC (09:03)
[2019-10-07 09:13] LABS: Protein, Urine (Random) 28.3 mg/dL (<11.9); Protein:Creat Ratio 411 mg/g CRE (0-200)
== END ==
PROVIDERS: PCP Internal Medicine; Referring Provider Internal Medicine Nephrology; Visit Provider Internal Medicine Nephrology
DX: N18.3 Chronic kidney disease, stage 3 (moderate) (principal); D63.1 Anemia in chronic kidney disease
CPT/HCPCS: 36591; 80069; 82306; 82570; 83970; 84156; 85027; 96372; A4216; Q5106

== ENCOUNTER → 2019-11-04 07:49 | Outpatient (CLI) | payer MEDICARE, OTHER, SELFPAY ==
[2019-09-09 08:42] VITALS: BMI 49.6
[2019-10-07 08:26] VITALS: BMI 47.8
[2019-11-04] MEDS: 0.9% NaCl PICC Flush IV (08:02)
[2019-11-04] MEDS: 0.9% NaCl Peripheral Flush Adult/Peds IV (08:02)
[2019-11-04 08:12] LABS: Hematocrit 33.4 % (37-47); Hemoglobin 10.7 g/dL (12.0-15.0)
[2019-11-04 08:31] LABS: Albumin, Serum 3.6 g/dL (3.2-5.0); BUN 34 mg/dL (7-18); BUN/Creat Ratio 16.2 RATIO (10-20); Chloride 109 mmol/L (98-107); EST Glomerular Filtration Rate 24 mL/min (>60); Est Glom Filt Rate - Afr Amer 30 mL/min (>60); Ferritin 72 ng/mL (8-252); Glucose 153 mg/dL (74-106); Iron 89 ug/dL (50-170); Iron Binding Capacity,Total 320 ug/dL (250-450); PERCENT IRON SATURATION 27.8 % (15.0-55.0); Phosphorus 3.4 mg/dL (2.5-4.9); Potassium 4.4 mmol/L (3.5-5.1); Sodium Level 141 mmol/L (136-145)
== END ==
PROVIDERS: PCP Internal Medicine; Referring Provider Internal Medicine Nephrology; Visit Provider Internal Medicine Nephrology
DX: N18.3 Chronic kidney disease, stage 3 (moderate) (principal); D63.1 Anemia in chronic kidney disease
CPT/HCPCS: 36591; 80069; 82728; 83540; 83550; 85014; 85018; A4216; Q5106

== ENCOUNTER → 2019-12-02 07:50 | Outpatient (CLI) | payer MEDICARE, OTHER, SELFPAY ==
[2019-10-07 08:26] VITALS: BMI 47.8
[2019-12-02 08:11] VITALS: BP 96/43; PULSE 85; RESP 16; TEMP 36.1; O2SAT 100; BMI 48.6
[2019-12-02 08:15] LABS: Hematocrit 32.7 % (37-47); Hemoglobin 10.5 g/dL (12.0-15.0)
[2019-12-02 08:31] LABS: Albumin, Serum 3.4 g/dL (3.2-5.0); BUN 37 mg/dL (7-18); Calcium,Total 9.3 mg/dL (8.5-10.1); Chloride 109 mmol/L (98-107); Creatinine, Serum 2.05 mg/dL (0.55-1.02); EST Glomerular Filtration Rate 25 mL/min (>60); Est Glom Filt Rate - Afr Amer 30 mL/min (>60); Estimated Creatinine Clearance 19.61 ml/min; Glucose 186 mg/dL (74-106); Phosphorus 2.7 mg/dL (2.5-4.9); Potassium 4.3 mmol/L (3.5-5.1); Sodium Level 139 mmol/L (136-145)
[2019-12-02 16:11] LABS: Xtra Tube EP Lab EXTRA TUBE
== END ==
PROVIDERS: PCP Internal Medicine; Referring Provider Internal Medicine Nephrology; Visit Provider Internal Medicine Nephrology
DX: N18.3 Chronic kidney disease, stage 3 (moderate) (principal); D63.1 Anemia in chronic kidney disease
CPT/HCPCS: 36592; 80069; 85014; 85018; A4216

== ENCOUNTER → 2019-12-30 08:00 | Outpatient (CLI) | payer MEDICARE, OTHER, SELFPAY ==
[2019-10-07 08:26] VITALS: BMI 47.8
[2019-12-02 08:11] VITALS: BMI 48.6
[2019-12-30 08:30] LABS: Hematocrit 33.1 % (37-47); Hemoglobin 10.4 g/dL (12.0-15.0)
[2019-12-30 08:50] LABS: Albumin, Serum 3.3 g/dL (3.2-5.0); BUN 32 mg/dL (7-18); BUN/Creat Ratio 15.8 RATIO (10-20); Calcium,Total 9.1 mg/dL (8.5-10.1); Chloride 108 mmol/L (98-107); Creatinine, Serum 2.02 mg/dL (0.55-1.02); EST Glomerular Filtration Rate 26 mL/min (>60); Est Glom Filt Rate - Afr Amer 31 mL/min (>60); Glucose 143 mg/dL (74-106); Phosphorus 3.7 mg/dL (2.5-4.9); Potassium 4.2 mmol/L (3.5-5.1); Sodium Level 140 mmol/L (136-145)
[2019-12-30 09:00] VITALS: BP 133/62; PULSE 92; RESP 16; TEMP 36.6; O2SAT 100
[2019-12-30 16:27] LABS: Xtra Tube EP Lab EXTRA TUBE
== END ==
PROVIDERS: PCP Internal Medicine; Referring Provider Internal Medicine Nephrology; Visit Provider Internal Medicine Nephrology
CPT/HCPCS: 36591; 80069; 85014; 85018; A4216; Q5106

== ENCOUNTER → 2020-01-27 08:01 | Outpatient (CLI) | payer MEDICARE, OTHER, SELFPAY ==
[2019-12-02 08:11] VITALS: BMI 48.6
[2020-01-27 08:21] LABS: Hematocrit 33.1 % (37-47); Hemoglobin 10.5 g/dL (12.0-15.0)
[2020-01-27 08:38] LABS: Albumin, Serum 3.4 g/dL (3.2-5.0); BUN 42 mg/dL (7-18); Calcium,Total 9.6 mg/dL (8.5-10.1); Chloride 109 mmol/L (98-107); EST Glomerular Filtration Rate 26 mL/min (>60); Est Glom Filt Rate - Afr Amer 31 mL/min (>60); Glucose 223 mg/dL (74-106); Iron 66 ug/dL (50-170); Iron Binding Capacity,Total 317 ug/dL (250-450); Potassium 4.3 mmol/L (3.5-5.1); Sodium Level 139 mmol/L (136-145)
[2020-01-27 16:18] LABS: Xtra Tube EP Lab EXTRA TUBE
== END ==
PROVIDERS: PCP Internal Medicine; Referring Provider Internal Medicine Nephrology; Visit Provider Internal Medicine Nephrology
DX: N18.30 Chronic kidney disease, stage 3 unspecified (principal); D63.1 Anemia in chronic kidney disease
CPT/HCPCS: 36591; 80069; 83540; 83550; 85014; 85018; A4216

== ENCOUNTER → 2020-02-24 10:04 | Outpatient (CLI) | payer MEDICARE, OTHER, SELFPAY ==
[2019-12-02 08:11] VITALS: BMI 48.6
[2020-02-24 10:41] LABS: Hematocrit 32.9 % (37-47); Hemoglobin 10.6 g/dL (12.0-15.0)
[2020-02-24 10:58] LABS: Albumin, Serum 3.5 g/dL (3.2-5.0); BUN 36 mg/dL (7-18); BUN/Creat Ratio 17.7 RATIO (10-20); Calcium,Total 9.4 mg/dL (8.5-10.1); Chloride 110 mmol/L (98-107); Cholesterol 128 mg/dL (200); Creatinine, Serum 2.03 mg/dL (0.55-1.02); EST Glomerular Filtration Rate 25 mL/min (>60); Est Glom Filt Rate - Afr Amer 31 mL/min (>60); Glucose 160 mg/dL (74-106); High Density Lipoprotein 47 mg/dL; Potassium 4.2 mmol/L (3.5-5.1); Sodium Level 141 mmol/L (136-145); Triglycerides 108 mg/dL; Very Low Density Lipoprotein 22 mg/dL (5-40)
[2020-02-24 10:59] LABS: Hemoglobin A1c 7.1 % (3.8-5.6)
[2020-02-24 18:38] LABS: Xtra Tube EP Lab EXTRA TUBE
== END ==
PROVIDERS: PCP Internal Medicine; Referring Provider Internal Medicine Nephrology; Visit Provider Internal Medicine Nephrology
DX: E11.22 Type 2 diabetes mellitus with diabetic chronic kidney disease (principal); N18.4 Chronic kidney disease, stage 4 (severe); D63.1 Anemia in chronic kidney disease; E78.2 Mixed hyperlipidemia; Z79.4 Long term (current) use of insulin
CPT/HCPCS: 36591; 80061; 80069; 83036; 85014; 85018; A4216

== ENCOUNTER → 2020-03-23 09:51 | Outpatient (CLI) | payer MEDICARE, OTHER, SELFPAY ==
[2019-12-02 08:11] VITALS: BMI 48.6
[2020-03-23 10:55] LABS: Albumin, Serum 3.4 g/dL (3.2-5.0); BUN 33 mg/dL (7-18); BUN/Creat Ratio 14.5 RATIO (10-20); Calcium,Total 9.2 mg/dL (8.5-10.1); Chloride 107 mmol/L (98-107); Creatinine, Serum 2.28 mg/dL (0.55-1.02); EST Glomerular Filtration Rate 22 mL/min (>60); Est Glom Filt Rate - Afr Amer 27 mL/min (>60); Glucose 243 mg/dL (74-106); Phosphorus 2.5 mg/dL (2.5-4.9); Potassium 4.1 mmol/L (3.5-5.1); Sodium Level 138 mmol/L (136-145)
[2020-03-23 11:27] LABS: Hematocrit 33.1 % (37-47); Hemoglobin 10.6 g/dL (12.0-15.0)
[2020-03-23 11:48] LABS: Protein, Urine (Random) 50.4 mg/dL (<11.9); Protein:Creat Ratio 601 mg/g CRE (0-200)
[2020-03-23 18:20] LABS: Xtra Tube EP Lab EXTRA TUBE
== END ==
PROVIDERS: PCP Internal Medicine; Referring Provider Internal Medicine Nephrology; Visit Provider Internal Medicine Nephrology
DX: N18.30 Chronic kidney disease, stage 3 unspecified (principal); D63.1 Anemia in chronic kidney disease; R80.9 Proteinuria, unspecified
CPT/HCPCS: 36415; 36591; 80069; 82570; 84156; 85014; 85018; A4216

== ENCOUNTER → 2020-04-21 07:59 | Outpatient (CLI) | payer MEDICARE, OTHER, SELFPAY ==
[2019-12-02 08:11] VITALS: BMI 48.6
[2020-04-21 08:00] VITALS: BMI 48.6
[2020-04-21 08:21] LABS: Hematocrit 32.4 % (37-47); Hemoglobin 10.4 g/dL (12.0-15.0)
[2020-04-21] MEDS: Epoetin Alfa epbx 10,000 UNITS/ML 13000 UNIT SC (08:35)
[2020-04-21 08:41] LABS: Albumin, Serum 3.4 g/dL (3.2-5.0); BUN 36 mg/dL (7-18); BUN/Creat Ratio 17.9 RATIO (10-20); Calcium,Total 10.3 mg/dL (8.5-10.1); Chloride 109 mmol/L (98-107); Creatinine, Serum 2.01 mg/dL (0.55-1.02); EST Glomerular Filtration Rate 26 mL/min (>60); Est Glom Filt Rate - Afr Amer 31 mL/min (>60); Glucose 165 mg/dL (74-106); Iron 66 ug/dL (50-170); Iron Binding Capacity,Total 324 ug/dL (250-450); Phosphorus 3.9 mg/dL (2.5-4.9); Potassium 4.1 mmol/L (3.5-5.1); Sodium Level 140 mmol/L (136-145)
[2020-04-21 16:19] LABS: Xtra Tube EP Lab EXTRA TUBE
== END ==
PROVIDERS: PCP Internal Medicine; Referring Provider Internal Medicine Nephrology; Visit Provider Internal Medicine Nephrology
DX: N18.30 Chronic kidney disease, stage 3 unspecified (principal); D63.1 Anemia in chronic kidney disease
CPT/HCPCS: 80069; 83540; 83550; 85014; 85018; 96372; A4216; Q5106

== ENCOUNTER → 2020-05-18 08:55 | Outpatient (CLI) | payer MEDICARE, OTHER, SELFPAY ==
[2019-12-02 08:11] VITALS: BMI 48.6
[2020-04-21 08:00] VITALS: BMI 48.6
[2020-05-18 09:04] VITALS: BP 143/66; PULSE 97; RESP 16; TEMP 35.7; O2SAT 99; BMI 47.8
[2020-05-18 09:22] LABS: Hematocrit 32.4 % (37-47); Hemoglobin 10.3 g/dL (12.0-15.0)
[2020-05-18 09:35] LABS: Albumin, Serum 3.2 g/dL (3.2-5.0); BUN 41 mg/dL (7-18); Chloride 107 mmol/L (98-107); Creatinine, Serum 1.95 mg/dL (0.55-1.02); EST Glomerular Filtration Rate 27 mL/min (>60); Est Glom Filt Rate - Afr Amer 32 mL/min (>60); Glucose 196 mg/dL (74-106); Phosphorus 3.2 mg/dL (2.5-4.9); Potassium 4.3 mmol/L (3.5-5.1); Sodium Level 139 mmol/L (136-145)
[2020-05-18] MEDS: Epoetin Alfa epbx 10,000 UNITS/ML 13000 UNIT SC (09:44)
[2020-05-18 17:20] LABS: Xtra Tube EP Lab EXTRA TUBE
== END ==
PROVIDERS: PCP Internal Medicine; Referring Provider Internal Medicine Nephrology; Visit Provider Internal Medicine Nephrology
DX: N18.30 Chronic kidney disease, stage 3 unspecified (principal); D63.1 Anemia in chronic kidney disease
CPT/HCPCS: 36591; 80069; 85014; 85018; 96372; A4216; Q5106

== ENCOUNTER 2020-06-15 08:57 | Outpatient (CLI) | payer MEDICARE, OTHER, SELFPAY ==
[2020-04-21 08:00] VITALS: BMI 48.6
[2020-05-18 09:04] VITALS: BMI 47.8
[2020-06-15 09:20] LABS: Hematocrit 35.2 % (37-47); Hemoglobin 11.2 g/dL (12.0-15.0)
[2020-06-15 09:32] LABS: Albumin, Serum 3.5 g/dL (3.2-5.0); BUN 32 mg/dL (7-18); BUN/Creat Ratio 16.3 RATIO (10-20); Calcium,Total 9.6 mg/dL (8.5-10.1); Chloride 107 mmol/L (98-107); Creatinine, Serum 1.96 mg/dL (0.55-1.02); EST Glomerular Filtration Rate 26 mL/min (>60); Est Glom Filt Rate - Afr Amer 32 mL/min (>60); Glucose 199 mg/dL (74-106); Phosphorus 2.8 mg/dL (2.5-4.9); Potassium 4.5 mmol/L (3.5-5.1); Sodium Level 138 mmol/L (136-145)
[2020-06-15 17:15] LABS: Xtra Tube EP Lab EXTRA TUBE
== END 2020-06-15 16:36 | disposition home or self-care (01) ==
PROVIDERS: PCP Internal Medicine; Referring Provider Internal Medicine Nephrology; Visit Provider Internal Medicine Nephrology
DX: N18.32 Chronic kidney disease, stage 3b (principal); D63.1 Anemia in chronic kidney disease
CPT/HCPCS: 36591; 80069; 83540; 83550; 85014; 85018; A4216

== ENCOUNTER → 2020-07-13 09:01 | Outpatient (CLI) | payer MEDICARE, OTHER, SELFPAY ==
[2020-05-18 09:04] VITALS: BMI 47.8
[2020-07-13 09:07] VITALS: BP 148/90; PULSE 105; RESP 18; TEMP 36.3; O2SAT 98; BMI 49.2
[2020-07-13 09:34] LABS: Hematocrit 32.9 % (37-47); Hemoglobin 10.7 g/dL (12.0-15.0)
[2020-07-13 09:41] VITALS: BP 140/82
[2020-07-13 09:51] LABS: AST(SGOT) 17 U/L (15-37); Alanine Aminotransfer ALT/SGPT 26 U/L (13-56); Albumin, Serum 3.4 g/dL (3.2-5.0); Alkaline Phosphatase 77 U/L (45-117); BUN 38 mg/dL (7-18); BUN/Creat Ratio 19.9 RATIO (10-20); Bilirubin, Direct 0.11 mg/dL (0.00-0.30); Calcium,Total 9.7 mg/dL (8.5-10.1); Chloride 104 mmol/L (98-107); Cholesterol 128 mg/dL (200); Creatinine, Serum 1.91 mg/dL (0.55-1.02); EST Glomerular Filtration Rate 27 mL/min (>60); Est Glom Filt Rate - Afr Amer 33 mL/min (>60); Estimated Creatinine Clearance 20.73 ml/min; Globulin 3.4 g/dL (2.2-4.2); Glucose 214 mg/dL (74-106); Hemoglobin A1c 8.8 % (3.8-5.6); High Density Lipoprotein 45 mg/dL; Phosphorus 3.3 mg/dL (2.5-4.9); Potassium 4.3 mmol/L (3.5-5.1); Protein, Total 6.8 g/dL (6.4-8.2); Sodium Level 137 mmol/L (136-145); Triglycerides 188 mg/dL; Very Low Density Lipoprotein 38 mg/dL (5-40)
[2020-07-13 17:30] LABS: Xtra Tube EP Lab EXTRA TUBE
== END ==
PROVIDERS: PCP Internal Medicine; Referring Provider Internal Medicine Nephrology; Visit Provider Internal Medicine Nephrology
DX: E11.22 Type 2 diabetes mellitus with diabetic chronic kidney disease (principal); I12.9 Hypertensive chronic kidney disease with stage 1 through stage 4 chronic kidney disease, or unspecified chronic kidney disease; N18.4 Chronic kidney disease, stage 4 (severe); E78.49 Other hyperlipidemia; Z79.4 Long term (current) use of insulin
CPT/HCPCS: 36591; 80061; 80069; 82247; 82248; 83036; 84075; 84156; 84450; 84460; 85014; 85018; A4216

== ENCOUNTER → 2020-08-10 09:06 | Outpatient (CLI) | payer MEDICARE, OTHER, SELFPAY ==
[2020-05-18 09:04] VITALS: BMI 47.8
[2020-07-13 09:07] VITALS: BMI 49.2
[2020-08-10 09:23] VITALS: BP 131/51; PULSE 91; RESP 16; TEMP 36.2; O2SAT 96; BMI 47.8
[2020-08-10] MEDS: 0.9 % NaCl (Sterile) Posiflush 10 mL IV (09:32)
[2020-08-10] MEDS: 0.9% Saline Lock 10 ML Syringe IV (09:32)
[2020-08-10 09:44] LABS: Albumin, Serum 3.4 g/dL (3.2-5.0); BUN 40 mg/dL (7-18); Chloride 107 mmol/L (98-107); Creatinine, Serum 2.11 mg/dL (0.55-1.02); EST Glomerular Filtration Rate 24 mL/min (>60); Est Glom Filt Rate - Afr Amer 29 mL/min (>60); Glucose 236 mg/dL (74-106); Iron 68 ug/dL (50-170); Iron Binding Capacity,Total 302 ug/dL (250-450); Phosphorus 3.1 mg/dL (2.5-4.9); Potassium 4.6 mmol/L (3.5-5.1); Sodium Level 138 mmol/L (136-145)
[2020-08-10 09:47] LABS: Hematocrit 32.6 % (37-47); Hemoglobin 10.4 g/dL (12.0-15.0)
[2020-08-10] MEDS: Epoetin Alfa epbx 10,000 UNITS/ML 13000 UNIT SC (10:25)
[2020-08-10 17:27] LABS: Xtra Tube EP Lab EXTRA TUBE
== END ==
PROVIDERS: PCP Internal Medicine; Referring Provider Internal Medicine Nephrology; Visit Provider Internal Medicine Nephrology
DX: N18.32 Chronic kidney disease, stage 3b (principal); D63.1 Anemia in chronic kidney disease
CPT/HCPCS: 80069; 83540; 83550; 85014; 85018; 96372; A4216; Q5106

== ENCOUNTER → 2020-09-07 09:26 | Outpatient (CLI) | payer MEDICARE, OTHER, SELFPAY ==
[2020-07-13 09:07] VITALS: BMI 49.2
[2020-08-10 09:23] VITALS: BMI 47.8
[2020-09-07 09:41] VITALS: BP 130/62; PULSE 91; RESP 18; TEMP 36.4; O2SAT 98; BMI 48.5
[2020-09-07 10:14] LABS: Absolute Lymphocyte Count 2.48 X10^3/uL (0.83-4.51); Absolute Neutrophil Count 5.1 X10^3/uL (2.0-7.7); Basophil# 0.04 X10^3/uL; Basophil% 0.5 % (0-1); Eosinophil# 0.18 X10^3/uL; Eosinophils% 2.1 % (0-5); Hematocrit 35.1 % (37-47); Hemoglobin 11.3 g/dL (12.0-15.0); Lymphocyte # 2.48 X10^3/ul (0.83-4.51); Mean Corp Hgb Conc 32.2 g/dL (32-36); Mean Corpuscular Volume 96.4 fL (81-99); Mean Platelet Vol. 9.7 fl (6.2-12.0); Monocyte# 0.72 X10^3/uL; Monocyte% 8.4 % (0-10); NRBC Flagged by Analyzer 0 % (0-5); Neutrophil # 5.07 X10^3/uL (2.7-7.7); Neutrophil % 59.3 % (47-70); Platelet Count 262 K/mm3 (150-450); RBC Distribution Width CV 13.6 % (11.6-14.6); RBC Distribution Width SD 48.8 fl (35.1-43.9); Red Blood Count 3.64 M/mm3 (4.2-5.4); White Blood Count 8.6 K/mm3 (4.4-11.0)
[2020-09-07 10:30] LABS: Albumin, Serum 3.5 g/dL (3.2-5.0); BUN 50 mg/dL (7-18); BUN/Creat Ratio 24.5 RATIO (10-20); Calcium,Total 9.7 mg/dL (8.5-10.1); Chloride 109 mmol/L (98-107); Creatinine, Serum 2.04 mg/dL (0.55-1.02); EST Glomerular Filtration Rate 25 mL/min (>60); Est Glom Filt Rate - Afr Amer 30 mL/min (>60); Estimated Creatinine Clearance 19.41 ml/min; Ferritin 57 ng/mL (8-252); Glucose 157 mg/dL (74-106); Iron 80 ug/dL (50-170); Iron Binding Capacity,Total 313 ug/dL (250-450); Phosphorus 3.4 mg/dL (2.5-4.9); Potassium 4.2 mmol/L (3.5-5.1); Sodium Level 139 mmol/L (136-145)
[2020-09-07 18:06] LABS: Xtra Tube EP Lab EXTRA TUBE
== END ==
PROVIDERS: PCP Internal Medicine; Referring Provider Internal Medicine Nephrology; Visit Provider Internal Medicine Nephrology
DX: N18.32 Chronic kidney disease, stage 3b (principal); D63.1 Anemia in chronic kidney disease
CPT/HCPCS: 36591; 80069; 82728; 83540; 83550; 85025; A4216

== ENCOUNTER → 2020-10-05 09:00 | Outpatient (CLI) | payer MEDICARE, OTHER, SELFPAY ==
[2020-08-10 09:23] VITALS: BMI 47.8
[2020-09-07 09:41] VITALS: BMI 48.5
[2020-10-05 09:33] LABS: Hematocrit 33.6 % (37-47); Hemoglobin 10.6 g/dL (12.0-15.0); Mean Corp Hgb Conc 31.5 g/dL (32-36); Mean Corpuscular Hgb 30.8 pg (27.0-32.0); Mean Corpuscular Volume 97.7 fL (81-99); Mean Platelet Vol. 9.2 fl (6.2-12.0); Platelet Count 221 K/mm3 (150-450); RBC Distribution Width CV 13.3 % (11.6-14.6); RBC Distribution Width SD 47.8 fl (35.1-43.9); Red Blood Count 3.44 M/mm3 (4.2-5.4); White Blood Count 7.2 K/mm3 (4.4-11.0)
[2020-10-05 09:42] LABS: Albumin, Serum 3.5 g/dL (3.2-5.0); BUN 45 mg/dL (7-18); BUN/Creat Ratio 21.5 RATIO (10-20); Calcium,Total 9.5 mg/dL (8.5-10.1); Chloride 106 mmol/L (98-107); Creatinine, Serum 2.09 mg/dL (0.55-1.02); EST Glomerular Filtration Rate 24 mL/min (>60); Est Glom Filt Rate - Afr Amer 30 mL/min (>60); Glucose 115 mg/dL (74-106); Phosphorus 3.5 mg/dL (2.5-4.9); Potassium 4.1 mmol/L (3.5-5.1); Sodium Level 139 mmol/L (136-145)
[2020-10-05 10:14] LABS: Protein, Urine (Random) 28.1 mg/dL (<11.9); Protein:Creat Ratio 479 mg/g CRE (0-200)
[2020-10-05 10:23] LABS: PTHIN 70.7 pg/mL (18.4-80.1)
== END ==
PROVIDERS: PCP Internal Medicine; Referring Provider Internal Medicine Nephrology; Visit Provider Internal Medicine Nephrology
DX: N18.32 Chronic kidney disease, stage 3b (principal); D63.1 Anemia in chronic kidney disease; N25.81 Secondary hyperparathyroidism of renal origin
CPT/HCPCS: 36591; 80069; 82306; 82570; 83970; 84156; 85027; A4216

== ENCOUNTER → 2020-11-02 08:42 | Outpatient (CLI) | payer MEDICARE, OTHER, SELFPAY ==
[2020-09-07 09:41] VITALS: BMI 48.5
[2020-11-02 09:09] LABS: Hematocrit 33.5 % (37-47); Hemoglobin 10.7 g/dL (12.0-15.0)
[2020-11-02 09:22] LABS: Albumin, Serum 3.5 g/dL (3.2-5.0); BUN 46 mg/dL (7-18); BUN/Creat Ratio 21.6 RATIO (10-20); Calcium,Total 9.9 mg/dL (8.5-10.1); Chloride 105 mmol/L (98-107); Creatinine, Serum 2.13 mg/dL (0.55-1.02); EST Glomerular Filtration Rate 24 mL/min (>60); Est Glom Filt Rate - Afr Amer 29 mL/min (>60); Glucose 132 mg/dL (74-106); Phosphorus 3.5 mg/dL (2.5-4.9); Potassium 4.3 mmol/L (3.5-5.1); Sodium Level 139 mmol/L (136-145)
[2020-11-02 17:06] LABS: Xtra Tube EP Lab EXTRA TUBE
== END ==
PROVIDERS: PCP Internal Medicine; Referring Provider Internal Medicine Nephrology; Visit Provider Internal Medicine Nephrology
DX: N18.32 Chronic kidney disease, stage 3b (principal); D63.1 Anemia in chronic kidney disease
CPT/HCPCS: 36591; 80069; 85014; 85018; A4216

== ENCOUNTER → 2020-11-30 | Outpatient (CLI) | payer MEDICARE, OTHER, SELFPAY ==
[2020-09-07 09:41] VITALS: BMI 48.5
[2020-11-30 10:48] LABS: Hematocrit 33.1 % (37-47); Hemoglobin 10.4 g/dL (12.0-15.0)
[2020-11-30 11:08] LABS: Albumin, Serum 3.3 g/dL (3.2-5.0); BUN 39 mg/dL (7-18); BUN/Creat Ratio 17.6 RATIO (10-20); Calcium,Total 9.8 mg/dL (8.5-10.1); Chloride 107 mmol/L (98-107); Creatinine, Serum 2.22 mg/dL (0.55-1.02); EST Glomerular Filtration Rate 23 mL/min (>60); Est Glom Filt Rate - Afr Amer 28 mL/min (>60); Ferritin 54 ng/mL (8-252); Glucose 135 mg/dL (74-106); Iron 68 ug/dL (50-170); Iron Binding Capacity,Total 316 ug/dL (250-450); Phosphorus 3.4 mg/dL (2.5-4.9); Potassium 4.1 mmol/L (3.5-5.1); Sodium Level 140 mmol/L (136-145)
[2020-11-30 11:15] VITALS: BP 144/73; PULSE 94; RESP 16; TEMP 36.2; O2SAT 99
[2020-11-30] MEDS: Epoetin Alfa epbx 10,000 UNITS/ML 13000 UNIT SC (11:27)
[2020-11-30 18:46] LABS: Xtra Tube EP Lab EXTRA TUBE
== END | disposition home or self-care (01) ==
LOC: MEDOUTP 10:23
PROVIDERS: PCP Internal Medicine; Referring Provider Internal Medicine Nephrology; Visit Provider Internal Medicine Nephrology
DX: N18.32 Chronic kidney disease, stage 3b (principal); D63.1 Anemia in chronic kidney disease
CPT/HCPCS: 36591; 80069; 82728; 83540; 83550; 85014; 85018; 96372; A4216; Q5106

== ENCOUNTER → 2020-12-28 09:01 | Outpatient (CLI) | payer MEDICARE, OTHER, SELFPAY ==
[2020-12-28 09:38] LABS: Albumin, Serum 3.4 g/dL (3.2-5.0); BUN 35 mg/dL (7-18); Calcium,Total 9.8 mg/dL (8.5-10.1); Chloride 103 mmol/L (98-107); Creatinine, Serum 2.06 mg/dL (0.55-1.02); EST Glomerular Filtration Rate 25 mL/min (>60); Est Glom Filt Rate - Afr Amer 30 mL/min (>60); Glucose 177 mg/dL (74-106); Phosphorus 3.8 mg/dL (2.5-4.9); Potassium 4.1 mmol/L (3.5-5.1); Sodium Level 136 mmol/L (136-145)
== END ==
PROVIDERS: PCP Internal Medicine; Referring Provider Internal Medicine Nephrology; Visit Provider Internal Medicine Nephrology
DX: N18.32 Chronic kidney disease, stage 3b (principal); D63.1 Anemia in chronic kidney disease
CPT/HCPCS: 36415; 36591; 80069; 85014; 85018; A4216

== ENCOUNTER → 2021-01-25 09:21 | Outpatient (CLI) | payer MEDICARE, OTHER, SELFPAY ==
[2021-01-25 09:47] VITALS: BP 130/77; PULSE 96; RESP 16; TEMP 36.1; O2SAT 97
[2021-01-25 09:56] LABS: Hematocrit 34.9 % (37-47); Hemoglobin 11.2 g/dL (12.0-15.0)
[2021-01-25 10:00] LABS: Albumin, Serum 3.2 g/dL (3.2-5.0); BUN 32 mg/dL (7-18); BUN/Creat Ratio 16.5 RATIO (10-20); Calcium,Total 9.6 mg/dL (8.5-10.1); Chloride 106 mmol/L (98-107); Creatinine, Serum 1.94 mg/dL (0.55-1.02); EST Glomerular Filtration Rate 27 mL/min (>60); Est Glom Filt Rate - Afr Amer 32 mL/min (>60); Glucose 245 mg/dL (74-106); Phosphorus 2.3 mg/dL (2.5-4.9); Potassium 4.5 mmol/L (3.5-5.1); Sodium Level 137 mmol/L (136-145)
[2021-01-25 17:43] LABS: Xtra Tube EP Lab EXTRA TUBE
== END ==
PROVIDERS: PCP Internal Medicine; Referring Provider Internal Medicine Nephrology; Visit Provider Internal Medicine Nephrology
DX: N18.32 Chronic kidney disease, stage 3b (principal); D63.1 Anemia in chronic kidney disease
CPT/HCPCS: 36591; 80069; 85014; 85018; A4216

== ENCOUNTER → 2021-02-22 09:36 | Outpatient (CLI) | payer MEDICARE, OTHER, SELFPAY ==
[2021-02-22 10:05] LABS: Hematocrit 34.3 % (37-47); Hemoglobin 11.5 g/dL (12.0-15.0)
[2021-02-22 10:20] LABS: Albumin, Serum 3.3 g/dL (3.2-5.0); BUN 51 mg/dL (7-18); BUN/Creat Ratio 24.6 RATIO (10-20); Calcium,Total 9.7 mg/dL (8.5-10.1); Chloride 102 mmol/L (98-107); Creatinine, Serum 2.07 mg/dL (0.55-1.02); EST Glomerular Filtration Rate 25 mL/min (>60); Est Glom Filt Rate - Afr Amer 30 mL/min (>60); Ferritin 64 ng/mL (8-252); Glucose 219 mg/dL (74-106); Iron 104 ug/dL (50-170); Iron Binding Capacity,Total 342 ug/dL (250-450); Phosphorus 3.2 mg/dL (2.5-4.9); Potassium 4.5 mmol/L (3.5-5.1); Sodium Level 134 mmol/L (136-145)
[2021-02-22 10:39] LABS: Protein, Urine (Random) 39.9 mg/dL (<11.9); Protein:Creat Ratio 635 mg/g CRE (0-200)
== END ==
PROVIDERS: PCP Internal Medicine; Referring Provider Internal Medicine Nephrology; Visit Provider Internal Medicine Nephrology
DX: N18.32 Chronic kidney disease, stage 3b (principal); D63.1 Anemia in chronic kidney disease
CPT/HCPCS: 36591; 80069; 82570; 82728; 83540; 83550; 84156; 85014; 85018; A4216

== ENCOUNTER 2021-03-22 13:32 | Outpatient (CLI) | payer MEDICARE, OTHER, SELFPAY ==
[2021-03-22 14:06] LABS: Absolute Lymphocyte Count 1.54 X10^3/uL (0.83-4.51); Absolute Neutrophil Count 4.1 X10^3/uL (2.0-7.7); Basophil# 0.04 X10^3/uL; Basophil% 0.6 % (0-1); Eosinophil# 0.18 X10^3/uL; Eosinophils% 2.8 % (0-5); Hematocrit 33.9 % (37-47); Hemoglobin 10.9 g/dL (12.0-15.0); Lymphocyte # 1.54 X10^3/ul (0.83-4.51); Lymphocyte % 23.7 % (19-41); Mean Corp Hgb Conc 32.2 g/dL (32-36); Mean Corpuscular Volume 96.3 fL (81-99); Mean Platelet Vol. 9.3 fl (6.2-12.0); Monocyte# 0.57 X10^3/uL; Monocyte% 8.8 % (0-10); NRBC Flagged by Analyzer 0 % (0-5); Neutrophil # 4.12 X10^3/uL (2.7-7.7); Neutrophil % 63.5 % (47-70); Platelet Count 237 K/mm3 (150-450); RBC Distribution Width CV 13.4 % (11.6-14.6); RBC Distribution Width SD 47.8 fl (35.1-43.9); Red Blood Count 3.52 M/mm3 (4.2-5.4); White Blood Count 6.5 K/mm3 (4.4-11.0)
[2021-03-22 14:19] LABS: Albumin, Serum 3.3 g/dL (3.2-5.0); BUN 37 mg/dL (7-18); BUN/Creat Ratio 18.3 RATIO (10-20); Chloride 108 mmol/L (98-107); Creatinine, Serum 2.02 mg/dL (0.55-1.02); EST Glomerular Filtration Rate 25 mL/min (>60); Est Glom Filt Rate - Afr Amer 31 mL/min (>60); Glucose 171 mg/dL (74-106); Phosphorus 2.9 mg/dL (2.5-4.9); Potassium 4.4 mmol/L (3.5-5.1); Sodium Level 140 mmol/L (136-145)
[2021-03-22 14:27] LABS: Hemoglobin A1c 8.3 % (3.8-5.6)
== END 2021-03-22 23:59 | disposition home or self-care (01) ==
LOC: MEDOUTP 13:34
PROVIDERS: PCP Internal Medicine; Referring Provider Internal Medicine Nephrology; Visit Provider Internal Medicine Nephrology
DX: E11.22 Type 2 diabetes mellitus with diabetic chronic kidney disease (principal); N18.4 Chronic kidney disease, stage 4 (severe); Z79.4 Long term (current) use of insulin; I12.9 Hypertensive chronic kidney disease with stage 1 through stage 4 chronic kidney disease, or unspecified chronic kidney disease; D63.1 Anemia in chronic kidney disease
CPT/HCPCS: 36591; 80069; 83036; 85025; A4216

== ENCOUNTER 2021-04-19 08:44 | Outpatient (CLI) | payer MEDICARE, OTHER, SELFPAY ==
[2021-04-19 09:21] LABS: Hematocrit 33.2 % (37-47); Hemoglobin 11.1 g/dL (12.0-15.0)
[2021-04-19 09:30] LABS: Albumin, Serum 3.3 g/dL (3.2-5.0); BUN 36 mg/dL (7-18); BUN/Creat Ratio 15.7 RATIO (10-20); Calcium,Total 9.6 mg/dL (8.5-10.1); Chloride 106 mmol/L (98-107); Creatinine, Serum 2.29 mg/dL (0.55-1.02); EST Glomerular Filtration Rate 22 mL/min (>60); Est Glom Filt Rate - Afr Amer 27 mL/min (>60); Glucose 185 mg/dL (74-106); Phosphorus 3.4 mg/dL (2.5-4.9); Potassium 4.2 mmol/L (3.5-5.1); Sodium Level 138 mmol/L (136-145)
== END 2021-04-19 23:59 | disposition short-term general hospital (02) ==
LOC: MEDOUTP 08:44
PROVIDERS: PCP Internal Medicine; Referring Provider Internal Medicine Nephrology; Visit Provider Internal Medicine Nephrology
DX: N18.32 Chronic kidney disease, stage 3b (principal); D63.1 Anemia in chronic kidney disease
CPT/HCPCS: 36591; 80069; 85014; 85018; A4216

== ENCOUNTER 2021-05-17 09:07 | Outpatient (CLI) | payer MEDICARE, OTHER, SELFPAY ==
[2021-05-17 09:46] LABS: Hematocrit 32.2 % (37-47); Hemoglobin 10.6 g/dL (12.0-15.0)
[2021-05-17 10:05] LABS: Albumin, Serum 3.4 g/dL (3.2-5.0); BUN 31 mg/dL (7-18); BUN/Creat Ratio 16.2 RATIO (10-20); Calcium,Total 9.7 mg/dL (8.5-10.1); Chloride 106 mmol/L (98-107); Creatinine, Serum 1.91 mg/dL (0.55-1.02); EST Glomerular Filtration Rate 27 mL/min (>60); Est Glom Filt Rate - Afr Amer 33 mL/min (>60); Ferritin 56 ng/mL (8-252); Glucose 113 mg/dL (74-106); Iron 76 ug/dL (50-170); Iron Binding Capacity,Total 306 ug/dL (250-450); PERCENT IRON SATURATION 24.8 % (15.0-55.0); Phosphorus 3.1 mg/dL (2.5-4.9); Potassium 4.5 mmol/L (3.5-5.1); Sodium Level 138 mmol/L (136-145)
== END 2021-05-17 23:59 | disposition home or self-care (01) ==
LOC: MEDOUTP 09:07
PROVIDERS: PCP Internal Medicine; Referring Provider Internal Medicine Nephrology; Visit Provider Internal Medicine Nephrology
DX: N18.32 Chronic kidney disease, stage 3b (principal); D63.1 Anemia in chronic kidney disease
CPT/HCPCS: 36591; 80069; 82728; 83540; 83550; 85014; 85018; A4216

== ENCOUNTER 2021-06-14 09:08 | Outpatient (CLI) | payer MEDICARE, OTHER, SELFPAY ==
[2021-06-14 09:37] LABS: Hematocrit 33.8 % (37-47)
[2021-06-14 09:53] LABS: Albumin, Serum 3.3 g/dL (3.2-5.0); BUN 39 mg/dL (7-18); BUN/Creat Ratio 19.9 RATIO (10-20); Calcium,Total 8.7 mg/dL (8.5-10.1); Chloride 106 mmol/L (98-107); Creatinine, Serum 1.96 mg/dL (0.55-1.02); EST Glomerular Filtration Rate 26 mL/min (>60); Est Glom Filt Rate - Afr Amer 32 mL/min (>60); Glucose 120 mg/dL (74-106); Phosphorus 2.9 mg/dL (2.5-4.9); Potassium 4.5 mmol/L (3.5-5.1); Sodium Level 137 mmol/L (136-145)
== END 2021-06-14 23:59 | disposition home or self-care (01) ==
LOC: MEDOUTP 09:08
PROVIDERS: PCP Internal Medicine; Referring Provider Internal Medicine Nephrology; Visit Provider Internal Medicine Nephrology
DX: N18.32 Chronic kidney disease, stage 3b (principal); D63.1 Anemia in chronic kidney disease
CPT/HCPCS: 36591; 80069; 85014; 85018; A4216

== ENCOUNTER 2021-07-14 08:52 | Outpatient (CLI) | payer MEDICARE, OTHER, SELFPAY ==
[2021-07-14 09:15] LABS: Hematocrit 31.8 % (37-47); Hemoglobin 10.8 g/dL (12.0-15.0)
[2021-07-14 09:35] LABS: Albumin, Serum 3.4 g/dL (3.2-5.0); BUN 38 mg/dL (7-18); BUN/Creat Ratio 19.8 RATIO (10-20); Calcium,Total 9.9 mg/dL (8.5-10.1); Chloride 105 mmol/L (98-107); Creatinine, Serum 1.92 mg/dL (0.55-1.02); EST Glomerular Filtration Rate 27 mL/min (>60); Est Glom Filt Rate - Afr Amer 33 mL/min (>60); Glucose 136 mg/dL (74-106); Phosphorus 3.5 mg/dL (2.5-4.9); Potassium 4.4 mmol/L (3.5-5.1); Sodium Level 136 mmol/L (136-145)
== END 2021-07-14 23:59 | disposition home or self-care (01) ==
LOC: MEDOUTP 08:52
PROVIDERS: PCP Internal Medicine; Referring Provider Internal Medicine Nephrology; Visit Provider Internal Medicine Nephrology
DX: N18.32 Chronic kidney disease, stage 3b (principal); D63.1 Anemia in chronic kidney disease
CPT/HCPCS: 36591; 80069; 85014; 85018; A4216

== ENCOUNTER → 2021-08-09 | Outpatient (CLI) | payer MEDICARE, OTHER, SELFPAY ==
[2021-08-09 09:20] VITALS: BP 131/63; PULSE 89; RESP 16; TEMP 36.4; O2SAT 99; BMI 48.9
[2021-08-09 09:21] LABS: Hematocrit 32.3 % (37-47); Hemoglobin 10.3 g/dL (12.0-15.0)
[2021-08-09 09:38] LABS: Albumin, Serum 3.2 g/dL (3.2-5.0); BUN 34 mg/dL (7-18); BUN/Creat Ratio 17.4 RATIO (10-20); Calcium,Total 9.5 mg/dL (8.5-10.1); Chloride 105 mmol/L (98-107); Creatinine, Serum 1.95 mg/dL (0.55-1.02); EST Glomerular Filtration Rate 26 mL/min (>60); Est Glom Filt Rate - Afr Amer 32 mL/min (>60); Estimated Creatinine Clearance 19.99 ml/min; Ferritin 52 ng/mL (8-252); Glucose 105 mg/dL (74-106); Iron 75 ug/dL (50-170); Iron Binding Capacity,Total 316 ug/dL (250-450); PERCENT IRON SATURATION 23.7 % (15.0-55.0); Phosphorus 3.2 mg/dL (2.5-4.9); Potassium 4.4 mmol/L (3.5-5.1); Sodium Level 137 mmol/L (136-145)
[2021-08-09] MEDS: Epoetin Alfa-EPBX 20,000 unit/ml 13000 UNIT SC (10:18)
== END | disposition home or self-care (01) ==
LOC: MEDOUTP 08:56
PROVIDERS: PCP Internal Medicine; Referring Provider Internal Medicine Nephrology; Visit Provider Internal Medicine Nephrology
DX: N18.32 Chronic kidney disease, stage 3b (principal); D63.1 Anemia in chronic kidney disease
CPT/HCPCS: 36591; 80069; 82728; 83540; 83550; 85014; 85018; 96372; A4216; Q5106

== ENCOUNTER → 2021-09-08 | Outpatient (CLI) | payer MEDICARE, OTHER, SELFPAY ==
[2021-09-08 09:18] LABS: Hematocrit 35.6 % (37-47); Hemoglobin 11.6 g/dL (12.0-15.0)
[2021-09-08 09:30] LABS: Albumin, Serum 3.7 g/dL (3.2-5.0); BUN 52 mg/dL (7-18); BUN/Creat Ratio 27.1 RATIO (10-20); Calcium,Total 9.8 mg/dL (8.5-10.1); Chloride 104 mmol/L (98-107); Creatinine, Serum 1.92 mg/dL (0.55-1.02); EST Glomerular Filtration Rate 27 mL/min (>60); Est Glom Filt Rate - Afr Amer 33 mL/min (>60); Glucose 173 mg/dL (74-106); Phosphorus 3.6 mg/dL (2.5-4.9); Potassium 4.5 mmol/L (3.5-5.1); Sodium Level 135 mmol/L (136-145)
== END | disposition home or self-care (01) ==
LOC: MEDOUTP 08:52
PROVIDERS: PCP Internal Medicine; Referring Provider Internal Medicine Nephrology; Visit Provider Internal Medicine Nephrology
DX: N18.32 Chronic kidney disease, stage 3b (principal); D63.1 Anemia in chronic kidney disease
CPT/HCPCS: 36591; 80069; 85014; 85018; A4216

== ENCOUNTER → 2021-10-06 | Outpatient (CLI) | payer MEDICARE, OTHER, SELFPAY ==
[2021-10-06 09:01] VITALS: BP 135/76; PULSE 87; RESP 16; TEMP 35.5; O2SAT 99; BMI 48.3
[2021-10-06 09:22] LABS: Hemoglobin 10.4 g/dL (12.0-15.0); Mean Corp Hgb Conc 32.5 g/dL (32-36); Mean Corpuscular Hgb 31.3 pg (27.0-32.0); Mean Corpuscular Volume 96.4 fL (81-99); Mean Platelet Vol. 9.3 fl (6.2-12.0); Platelet Count 186 K/mm3 (150-450); RBC Distribution Width CV 13.1 % (11.6-14.6); RBC Distribution Width SD 46.5 fl (35.1-43.9); Red Blood Count 3.32 M/mm3 (4.2-5.4); White Blood Count 5.6 K/mm3 (4.4-11.0)
[2021-10-06 09:35] LABS: Albumin, Serum 3.3 g/dL (3.2-5.0); BUN 38 mg/dL (7-18); BUN/Creat Ratio 19.7 RATIO (10-20); Calcium,Total 9.5 mg/dL (8.5-10.1); Chloride 108 mmol/L (98-107); Creatinine, Serum 1.93 mg/dL (0.55-1.02); EST Glomerular Filtration Rate 27 mL/min (>60); Est Glom Filt Rate - Afr Amer 32 mL/min (>60); Estimated Creatinine Clearance 20.19 ml/min; Glucose 86 mg/dL (74-106); Phosphorus 3.8 mg/dL (2.5-4.9); Potassium 4.3 mmol/L (3.5-5.1); Sodium Level 138 mmol/L (136-145)
[2021-10-06 09:47] LABS: Protein, Urine (Random) 36.3 mg/dL (<11.9); Protein:Creat Ratio 413 mg/g CRE (0-200)
[2021-10-06] MEDS: Epoetin Alfa-EPBX 20,000 unit/ml 13000 UNIT SC (09:52)
[2021-10-06 09:54] LABS: PTHIN 81.9 pg/mL (18.4-80.1)
[2021-10-06 09:59] LABS: Vitamin D,25 Hydroxy 39.7 ng/mL
== END | disposition home or self-care (01) ==
PROVIDERS: PCP Internal Medicine; Referring Provider Internal Medicine Nephrology; Visit Provider Internal Medicine Nephrology
DX: N18.32 Chronic kidney disease, stage 3b (principal); N25.81 Secondary hyperparathyroidism of renal origin; R80.9 Proteinuria, unspecified; D63.1 Anemia in chronic kidney disease
CPT/HCPCS: 36591; 80069; 82306; 82570; 83970; 84156; 85027; 96372; A4216; Q5106

== ENCOUNTER → 2021-11-03 | Outpatient (CLI) | payer MEDICARE, OTHER, SELFPAY ==
[2021-11-03 09:19] LABS: Hematocrit 33.6 % (37-47); Hemoglobin 10.7 g/dL (12.0-15.0)
[2021-11-03 09:40] LABS: Albumin, Serum 3.3 g/dL (3.2-5.0); BUN 40 mg/dL (7-18); BUN/Creat Ratio 19.9 RATIO (10-20); Calcium,Total 10.4 mg/dL (8.5-10.1); Chloride 106 mmol/L (98-107); Creatinine, Serum 2.01 mg/dL (0.55-1.02); EST Glomerular Filtration Rate 26 mL/min (>60); Est Glom Filt Rate - Afr Amer 31 mL/min (>60); Ferritin 54 ng/mL (8-252); Glucose 142 mg/dL (74-106); Iron 71 ug/dL (50-170); Iron Binding Capacity,Total 336 ug/dL (250-450); PERCENT IRON SATURATION 21.1 % (15.0-55.0); Phosphorus 3.4 mg/dL (2.5-4.9); Potassium 4.4 mmol/L (3.5-5.1); Sodium Level 139 mmol/L (136-145)
== END | disposition home or self-care (01) ==
LOC: MEDOUTP 08:47
PROVIDERS: PCP Internal Medicine; Referring Provider Internal Medicine Nephrology; Visit Provider Internal Medicine Nephrology
DX: N18.32 Chronic kidney disease, stage 3b (principal); D63.1 Anemia in chronic kidney disease
CPT/HCPCS: 36415; 36591; 80069; 82728; 83540; 83550; 85014; 85018; A4216

== ENCOUNTER → 2021-12-01 | Outpatient (CLI) | payer MEDICARE, OTHER, SELFPAY ==
[2021-12-01 09:16] LABS: Hematocrit 31.7 % (37-47); Hemoglobin 10.2 g/dL (12.0-15.0)
[2021-12-01 09:25] VITALS: BP 147/82; PULSE 93; RESP 16; TEMP 36.1; O2SAT 98
[2021-12-01 09:30] LABS: Albumin, Serum 3.3 g/dL (3.2-5.0); BUN 47 mg/dL (7-18); BUN/Creat Ratio 23.2 RATIO (10-20); Calcium,Total 9.5 mg/dL (8.5-10.1); Chloride 105 mmol/L (98-107); Creatinine, Serum 2.03 mg/dL (0.55-1.02); EST Glomerular Filtration Rate 25 mL/min (>60); Est Glom Filt Rate - Afr Amer 31 mL/min (>60); Glucose 125 mg/dL (74-106); Phosphorus 3.4 mg/dL (2.5-4.9); Potassium 4.6 mmol/L (3.5-5.1); Sodium Level 137 mmol/L (136-145)
[2021-12-01] MEDS: Epoetin Alfa-EPBX 20,000 unit/ml 13000 UNIT SC (09:40)
== END | disposition home or self-care (01) ==
LOC: MEDOUTP 08:47
PROVIDERS: PCP Internal Medicine; Referring Provider Internal Medicine Nephrology; Visit Provider Internal Medicine Nephrology
DX: N18.32 Chronic kidney disease, stage 3b (principal); D63.1 Anemia in chronic kidney disease
CPT/HCPCS: 36591; 80069; 85014; 85018; 96372; A4216; Q5106

== ENCOUNTER → 2021-12-19 | Outpatient (CLI) | payer MEDICARE, OTHER, SELFPAY ==
[2021-12-19 13:34] LABS: Hematocrit 33.6 % (37-47); Hemoglobin 10.8 g/dL (12.0-15.0); Mean Corp Hgb Conc 32.1 g/dL (32-36); Mean Corpuscular Hgb 31.2 pg (27.0-32.0); Mean Corpuscular Volume 97.1 fL (81-99); Mean Platelet Vol. 9.5 fl (6.2-12.0); Platelet Count 215 K/mm3 (150-450); RBC Distribution Width CV 13.9 % (11.6-14.6); RBC Distribution Width SD 49.4 fl (35.1-43.9); Red Blood Count 3.46 M/mm3 (4.2-5.4); White Blood Count 9.6 K/mm3 (4.4-11.0)
[2021-12-19 14:43] LABS: Anion Gap 8 (5-15); BUN 55 mg/dL (7-18); BUN/Creat Ratio 26.6 RATIO (10-20); Calcium,Total 10.4 mg/dL (8.5-10.1); Chloride 105 mmol/L (98-107); Creatinine, Serum 2.07 mg/dL (0.55-1.02); EST Glomerular Filtration Rate 25 mL/min (>60); Est Glom Filt Rate - Afr Amer 30 mL/min (>60); Glucose 92 mg/dL (74-106); Potassium 4.8 mmol/L (3.5-5.1); Sodium Level 136 mmol/L (136-145)
[2021-12-19 14:47] LABS: D-Dimer Quantitative (DVT/PE) 0.57 FEU/ug/m (0.27-0.49)
== END | disposition home or self-care (01) ==
LOC: LAB 12:43
PROVIDERS: PCP Internal Medicine; Visit Provider Internal Medicine
DX: M79.604 Pain in right leg (principal)
CPT/HCPCS: 36415; 80048; 85027; 85379

== ENCOUNTER 2021-12-21 11:36 | Observation (INO) | payer MEDICARE, OTHER, SELFPAY ==
[2021-12-21 11:38] VITALS: BP 138/78; PULSE 91; RESP 18; TEMP 35.7; O2SAT 98; BMI 47.8
--- NOTE | 2021-12-21 13:05 | EDS_ITS ---
HPI History of Present Illness Chief Complaint: Lower Extremity Injury Detail of Chief Complaint: Pain right leg Informant: patient Narrative Narrative: Patient presents to the emergency department complaint of pain in her right leg x3 weeks. Patient was seen in urgent care and started on prednisone but that made her blood sugars go up and so she discontinued that. Prednisone did seem to help the discomfort for a time. Patient then followed up with her primary care physician who ordered blood work which showed she may have a blood clot possibly so she had an ultrasound of her lower extremity to rule out DVT and this was negative and this was performed this week. Patient also had x-rays of her right knee which showed degenerative arthritic changes. Patient was started on tramadol which she first took yesterday but is not getting any relief with this. Patient had been on gabapentin for this but that was not helping her pain so that was discontinued. She denies any falls or injuries. She denies weakness of the extremity. She denies any back pain. Patient states the pain seems to emanate from the groin area go down the anterior thigh to the foot. Prior similar symptoms: No PFSH PFSH Home Medications pioglitazone 45 mg tablet 30 mg PO DAILY blood sugar 12/16/12 [History Last Taken 01/22/18] simvastatin 40 mg tablet 40 mg PO QHS cholesterol 12/16/12 [History Last Taken 01/22/18] gabapentin 300 mg capsule (Neurontin) 300 tab PO TID PRN Pain 11/07/16 [History Last Taken 01/20/18] cholecalciferol (vitamin D3) 25 mcg (1,000 unit) tablet (Vitamin D3) 2,000 unit PO DAILYCM supplement 01/27/18 [History Last Taken Unknown] epoetin azri 10,000 unit/mL injection solution (Epogen) 13,000 unit subcut QMON TH anemia 01/27/18 [History Last Taken Unknown] melatonin 10 mg sublingual tablet 10 mg PO QHS 02/20/18 [Rx Last Taken Unknown] cetirizine 5 mg tablet 5 mg PO DAILY PRN Allergies 03/26/18 [History Last Taken Unknown] calcitriol 0.5 mcg capsule 0.5 mcg PO DAILY 08/09/21 [History Last Taken Unknown] glimepiride 4 mg tablet 4 mg PO DAILY 08/09/21 [History Last Taken Unknown] insulin glargine 100 unit/mL (3 mL) subcutaneous pen (Lantus Solostar U-100 Insulin) 40 units subcut DAILY 08/09/21 [History Last Taken Unknown] losartan 50 mg tablet 50 mg PO DAILY 08/09/21 [History Last Taken Unknown] oxybutynin chloride 5 mg tablet 5 mg PO BID 08/09/21 [History Last Taken Unknown] polyethylene glycol 3350 17 gram oral powder packet 17 g PO DAILY PRN Constipation 08/09/21 [History Last Taken Unknown] vit C 226 mg-vit E 90 mg-copper 0.8 mg-zinc oxide-lutein 5 mg capsule (PreserVision Lutein) 1 cap PO DAILY 08/09/21 [History Last Taken Unknown] Allergy/AdvReac Type Severity Reaction Status Date / Time levofloxacin [From Levaquin] Allergy Hives Verified 12/21/21 11:38 Sulfa (Sulfonamide Allergy Hives Verified 12/21/21 11:38 Antibiotics) Social History Smoking Status: Former smoker ROS ROS ED Review of Systems ROS Unobtainable: other Constitutional Constitutional ED: Reports lethargy; Denies chills, fever(s), sweats or weight loss Eyes Eyes: Denies blurry vision, change in vision or diplopia ENT ENT ED: Denies rhinorrhea or sore throat Cardiovascular Cardiovascular: Denies chest pain, orthopnea or racing heartbeat Respiratory/Chest Respiratory/Chest: Denies cough, dyspnea, dyspnea on exertion, orthopnea or sputum Gastrointestinal Gastrointestinal: Denies abdominal pain, diarrhea, nausea or vomiting Genitourinary Genitourinary ED: Denies dysuria, hematuria or urinary frequency Musculoskeletal Musculoskeletal: Reports other Details: Right leg pain ; Denies arthralgias, back pain, myalgias or neck pain Integumentary Denies abscess, Abrasions or rash Neurologic Neurologic: Denies headache(s) or weakness Psychiatric Psychiatric: Denies anxiety, depression or suicidal thoughts Endocrine Endocrinology: Denies polydipsia, polyphagia or polyuria Hematologic/Lymphatic Hematologic/Lymphatic: Denies easy bleeding, easy bruising or lymphadenopathy Allergic/Immunologic Allergic/Immunologic ED: Denies mouth swelling, tongue swelling or urticaria EXAM Physical Exam Const Vital Signs: 12/21/21 11:38 Temperature 96.2 F L Temperature Source Temporal Pulse Rate 91 Respiratory Rate 18 Blood Pressure 138/78 H Blood Pressure Mean 98 Pulse Ox 98 Oxygen Delivery Method Room Air Positive well nourished and well developed General Appearance ED: well developed and NAD HEENT Reports TM's clear and moist mucous membranes normocephalic and atraumatic; Negative for trauma or tenderness Tympanic Membrane ED: Yes TM's clear Eyes PERRL and EOMs intact bilaterally General Eye ED: Negative for pale conjunctiva or scleral icterus Neck no lymphadenopathy, supple and no JVD General: Negative for tenderness Chest Wall inspection of chest normal and palpation of chest normal Chest: Negative for tenderness Resp normal respiratory effort and clear to auscultation bilaterally Effort and Inspection: Negative for respiratory distress or pain with movement Auscultation: Negative for rhonchi, wheezes or diminished lung sounds Cardio regular rate, regular rhythm, S1 normal heart sound, S2 normal heart sound and no murmurs Peripheral Pulses: pulses 2+ throughout GI normal to inspection, nondistended, normoactive bowel sounds, soft to palpation, non-tender, non-distended and no masses Back/Spine no CVA tenderness and no thoracic nor lumbar tenderness Extremity Extremity Narrative: Right leg-patient has normal femoral, popliteal, dorsal pedal and posterior tibial pulses. No significant edema noted. No cellulitic changes noted. Really cannot reproduce her pain with palpation of the upper thigh. Negative s traight leg raises. Deep tendon reflexes are plus 2 out of 4 bilaterally at the patella and Achilles. Patient has normal L5 extension. Normal sensation to light touch. General Extremety ED: Negative for edema General Extremity: Negative for edema Neuro oriented x3, CN's II-XII intact bilaterally, no sensory deficits noted and gait normal Sensorium / Orientation: awake, alert, oriented to person, oriented to place and oriented to time Motor Exam: strength 5/5 throughout and strength abnormal Psych mental status grossly normal Skin no rashes or lesions noted and no wounds MDM MDM MDM Narrative Medical decision making narrative: IV line established on arrival. Patient had basic labs that showed a normal white count and chemistries that were unremarkable. She had some renal insufficiency with a BUN of 45 and creatinine 1.85. Patient medicated with morphine 4 mg IV and Zofran 4 mg IV. Patient did not have any relief with that. Patient was ordered Dilaudid 1 mg IV. X-rays of the right hip and pelvis obtained interpreted by myself as no acute fractures or dislocations however official report from radiology pending. At this point Case will be discussed with hospitalist evaluate patient for admission for intractable right leg pain. I suspect possibility of meralgia paresthetica. Lab Data Attestation: I reviewed the patient's lab results. Labs: Laboratory Results - last 24 hr 12/21/21 12/21/21 13:46 13:46 WBC 7.7 RBC 3.30 L Hgb 10.3 L Hct 32.4 L MCV 98.2 MCH 31.2 MCHC 31.8 L RDW Std Deviation 49.1 H RDW Coeff of Yoel 13.8 Plt Count 212 MPV 8.9 Immature Gran % (Auto) 0.500 Neut % (Auto) 73.3 H Lymph % (Auto) 17.3 L [place] % (Auto) 6.7 Eos % (Auto) 1.9 Baso % (Auto) 0.3 Absolute Neuts (auto) 5.7 Absolute Lymphs (auto) 1.33 Nucleated RBC % 0 Sodium 136 Potassium 4.8 Chloride 106 Carbon Dioxide 25.0 Anion Gap 5 BUN 45 H Creatinine 1.85 H Estim Creat Clear Calc 21.07 Est GFR (MDRD) Af Amer 34 L Est GFR (MDRD) Non-Af 28 L BUN/Creatinine Ratio 24.3 H Glucose 55 L Calcium 9.7 Radiography Diagnostic Testing: Clinical Impression(s) from Imaging Studies Hip/Pelvis X-Ray 12/21/21 14:07 IMPRESSION: Marked degree of joint space and involving the right hip joint. Electronically Signed: Lang Montero MD at 14:36 EDT , Discharge Plan Dx/Rx/DC Orders Clinical Impression: Acute pain of right lower extremity, Intractable neuropathic pain of right lower extremity, Hypoglycemia, History of chronic hypertension Disposition Disposition: Acute Care [facility]
[2021-12-21] MEDS: Ondansetron 4 MG/2 ML Vial IV (13:39)
[2021-12-21] MEDS: Morphine 4 MG/ML Syringe IV (13:39)
[2021-12-21 13:56] LABS: Absolute Lymphocyte Count 1.33 X10^3/uL (0.83-4.51); Absolute Neutrophil Count 5.7 X10^3/uL (2.0-7.7); Basophil# 0.02 X10^3/uL; Basophil% 0.3 % (0-1); Eosinophil# 0.15 X10^3/uL; Eosinophils% 1.9 % (0-5); Hematocrit 32.4 % (37-47); Hemoglobin 10.3 g/dL (12.0-15.0); Lymphocyte # 1.33 X10^3/ul (0.83-4.51); Lymphocyte % 17.3 % (19-41); Mean Corp Hgb Conc 31.8 g/dL (32-36); Mean Corpuscular Hgb 31.2 pg (27.0-32.0); Mean Corpuscular Volume 98.2 fL (81-99); Mean Platelet Vol. 8.9 fl (6.2-12.0); Monocyte# 0.52 X10^3/uL; Monocyte% 6.7 % (0-10); NRBC Flagged by Analyzer 0 % (0-5); Neutrophil # 5.65 X10^3/uL (2.7-7.7); Neutrophil % 73.3 % (47-70); Platelet Count 212 K/mm3 (150-450); RBC Distribution Width CV 13.8 % (11.6-14.6); RBC Distribution Width SD 49.1 fl (35.1-43.9); White Blood Count 7.7 K/mm3 (4.4-11.0)
--- NOTE | 2021-12-21 14:07 | RAD_ITS ---
STUDY: X-RAY - PELVIS AND RIGHT HIP REASON FOR EXAM: Female, 76 years old. 4 week history of right lower extremity pain. TECHNIQUE: 3 views of the pelvis and hip. COMPARISON: None. FINDINGS: There is a non-specific bowel gas pattern. Normal visualized soft tissue structures. There is narrowing with cortical sclerosis and osteophyte formation of the sacroiliac joint consistent with degenerative osteoarthritic changes. Normal bilateral superior and inferior pubic rami. There are degenerative changes of the pubic symphysis with articular narrowing and sclerosis. Normal bilateral ischial tuberosities. Normal visualized femoral head. Normal acetabulum. is severe articular joint space narrowing of the hip. Moderate degree of joint space narrowing of the left hip joint. RAD/HIP, UNI W/ Pelvis 2-3 Views IMPRESSION: Marked degree of joint space and involving the right hip joint. Electronically Signed: Lang Montero MD at 14:36 EDT ,
[2021-12-21 14:10] LABS: Anion Gap 5 (5-15); BUN 45 mg/dL (7-18); BUN/Creat Ratio 24.3 RATIO (10-20); Calcium,Total 9.7 mg/dL (8.5-10.1); Chloride 106 mmol/L (98-107); Creatinine, Serum 1.85 mg/dL (0.55-1.02); EST Glomerular Filtration Rate 28 mL/min (>60); Est Glom Filt Rate - Afr Amer 34 mL/min (>60); Estimated Creatinine Clearance 21.07 ml/min; Glucose 55 mg/dL (74-106); Potassium 4.8 mmol/L (3.5-5.1); Sodium Level 136 mmol/L (136-145)
[2021-12-21] MEDS: HYDROmorphone 1 MG/ML Syringe IV (14:50)
[2021-12-21 15:05] VITALS: BP 136/74; PULSE 98; RESP 20; TEMP 36.6; O2SAT 92
[2021-12-21 15:21] LABS: Bedside Glucose 132 mg/dL (74-106)
[2021-12-21 15:47] VITALS: BMI 47.7
--- NOTE | 2021-12-21 16:41 | HP.PCM.HOS_ITS ---
[facility] - General General Date of Admission: 12/21/21 Date of Service: 12/21/21 Chief Complaint: Right leg pain. HPI Narrative VAL ERICKSON, is a 76 F with a history of DMII, HTN, CKDIII, spinal stenosis, and obesity who presents to [facility] on 12/21/2021 for worsening right hip and leg pain for three weeks. She has a history of spinal stenosis and pain into the back of her right leg as well as bilateral knee pain and R ankle surgeries causing pain in her ankle as well but she feels this pain is different and is more closely related to her hip. The pain can be sharp and radiates over the top of her leg and down to her foot at times. The pain comes and goes but has been more persistent and over the past two days she has had difficulty sitting and has been unable to sleep and hasn't had an appetite due to the pain. She went to urgent care 1-2 weeks ago and was given prednisone which only helped minimally but made her glucose >400 and caused her to feel worse. She stopped it and has been taking tylenol and gabapentin prn without significant relief. She also was given tramadol and noted it alone wasn't abundantly helpful. She did have evaluation by her PCP for a DVT w/ duplex which was negative and had an xray of her knee which showed degenerative changes. In the ED she had hip xray which showed SI degenerative changes as well as pubic symphysis degenerative changes with severe articular joint space narrowing of the hip. She continued to have intractable pain and was given 4mg of morphine and dilauded 1mg IV with some relief. Hospitalist service called to evaluate for admission for intractable pain. On exam pt continued to report the pain intermittently radiating down the top of her leg from her groin but felt it was somewhat better with the dilauded and morphine and she was resting more comfortably. She endorsed additional bilateral knee pain, back pain into he left buttock, R shoulder pain, and R ankle pain even independent of the radiating pain but said her R hip pain was something she hadn't experienced before. She did note walking around more than usual the day before the pain worsened but notes to falls or trauma. She has tried heat and ice without benefit on the area, and endorses it made her worse, and notes that sometimes being up and walking hurts less than sitting in her chair. She denies focal weakness, no numbness or tingling, no changes in bowel or bladder, no chest pain or shortness of breath. [facility] Medical History (Updated 12/21/21 @ 16:02 by Norah Chaidez) DVT (deep venous thrombosis) Kidney disease Kidney stones Home Medications simvastatin 40 mg tablet 40 mg PO QHS cholesterol 12/16/12 [History Last Taken 12/20/21] gabapentin 300 mg capsule (Neurontin) 300 tab PO BID 11/07/16 [History Last Taken 12/19/21] epoetin zari 10,000 unit/mL injection solution (Epogen) 13,000 unit subcut QMONTH anemia 01/27/18 [History Last Taken 3 Weeks Ago ~11/30/21] melatonin 10 mg sublingual tablet 10 mg PO QHS 02/20/18 [Rx Last Taken 12/18/21] calcitriol 0.5 mcg capsule 0.5 mcg PO DAILY 08/09/21 [History Last Taken 12/21/21] glimepiride 4 mg tablet 4 mg PO DAILY 08/09/21 [History Last Taken 12/21/21] insulin glargine 100 unit/mL (3 mL) subcutaneous pen (Lantus Solostar U-100 Insulin) 40 units subcut DAILY 08/09/21 [History Last Taken 12/20/21] losartan 50 mg tablet 50 mg PO DAILY 08/09/21 [History Last Taken 12/21/21] vit C 226 mg-vit E 90 mg-copper 0.8 mg-zinc oxide-lutein 5 mg capsule (PreserVision Lutein) 1 cap PO DAILY 08/09/21 [History Last Taken 12/21/21] acetaminophen 500 mg tablet 1,000 mg PO DAILY PRN Pain 12/21/21 [History Last Taken 12/20/21] naproxen sodium 220 mg tablet (Aleve) 440 mg PO DAILY PRN PAIN AND SWELLING 12/21/21 [History Last Taken 12/20/21] pioglitazone 30 mg tablet 30 mg PO QODAY DM 12/21/21 [History Last Taken 12/21/21] tramadol 50 mg tablet 50 mg PO Q8H PRN PRN RIGHT LEG PAIN 12/21/21 [History Last Taken 12/21/21 03:30] venlafaxine 37.5 mg capsule,extended release 24 hr 37.5 mg PO DAILY NERVES 10/06/22 [History Last Taken 12/20/21] Allergy/AdvReac Type Severity Reaction Status Date / Time levofloxacin [From Levaquin] Allergy Hives Verified 12/21/21 11:38 Sulfa (Sulfonamide Allergy Hives Verified 12/21/21 11:38 Antibiotics) Family History (Updated 12/21/21 @ 17:[address] Radha Bill MD) Sister Breast cancer Other Heart disease Prostate cancer Surgical History (Updated 12/21/21 @ 16:02 by Norah Chaiedz) History of appendectomy History of cholecystectomy Social History (Updated 12/21/21 @ 17:[address] Radha Bill MD) household members: none number of children: 2 Smoking Status: Former smoker alcohol intake: never substance use type: does not use additional social history: Lives alone in a house in [facility] Narrative General: denies fever, chills HEENT: denies headache, sinus congestion, or drainage, dysphagia, chronically worsening vision Resp: Denies cough, sputum production, SOB Cardiac: Denies chest pain, palpitations GI: Denies abdominal pain, nausea, and vomiting : Denies dysuria, urgency, frequency, hematuria Extremity: Pain in BLE and RUE MSK: Endorses anterior hip pain that radiates down front of thigh and occasionally to ankle, R shoulder pain intermittently which is chronic, R ankle pain independent of the shooting pain Neuro: Denies focal numbness, weakness, tingling Heme: Denies bleeding Skin: Denies rashes Psychiatric: Currently feel tired Gastrointestinal Gastrointestinal: Denies other Genitourinary Genitourinary: Denies other Vital Signs Vital Signs Vital Signs: 12/21/21 11:38 12/21/21 15:05 Temperature 96.2 F L 97.9 F Temperature Source Temporal Temporal Pulse Rate 91 98 Respiratory Rate 18 20 H Blood Pressure 138/78 H 136/74 H Blood Pressure Mean 98 94 Pulse Ox 98 92 Oxygen Delivery Method Room Air Room Air Weight Weight: 122.47 kg Body Mass Index (BMI) 47.8 Physical Exam Const alert Constitutional Narrative: Oriented, somewhat tired on exam HEENT normocephalic and head/scalp atraumatic Eyes Eyes Narrative: EOM grossly intact, anicteric, wears glasses Neck Neck Narrative: large, supple Resp normal respiratory effort Resp Narrative: difficult to auscultate 2/2 body habitus, no overt abnormalities noted Cardio regular rate and regular rhythm GI soft to palpation, non-tender and non-distended GI Narrative: obese Extremity Extremity Narrative: No pitting edema noted, attempted to preform SUNIL and FADIR tests but unable to d/t knee pain and body habitus, unable to preform straight leg raise d/t knee pain. Neuro Neuro Narrative: Able to lift both legs off bed, unable to test lower leg reflexes 2/2 habitus but no clonus appreciated, no focal deficits noted Psych Psych Narrative: Cooperative overall Results Lab / Micro Data Result Diagrams: 12/21/21 13:46 12/21/21 13:46 Labs: Laboratory Results - last 24 hr 12/21/21 13:46: WBC 7.7, RBC 3.30 L, Hgb 10.3 L, Hct 32.4 L, MCV 98.2, MCH 31.2, MCHC 31.8 L, RDW Std Deviation 49.1 H, RDW Coeff of Yoel 13.8, Plt Count 212, MPV 8.9, Immature Gran % (Auto) 0.500, Neut % (Auto) 73.3 H, Lymph % (Auto) 17.3 L, [place] % (Auto) 6.7, Eos % (Auto) 1.9, Baso % (Auto) 0.3, Absolute Neuts (auto) 5.7, Absolute Lymphs (auto) 1.33, Nucleated RBC % 0 12/21/21 13:46: Sodium 136, Potassium 4.8, Chloride 106, Carbon Dioxide 25.0, Anion Gap 5, BUN 45 H, Creatinine 1.85 H, Estim Creat Clear Calc 21.07, Est GFR (MDRD) Af Amer 34 L, Est GFR (MDRD) Non-Af 28 L, BUN/Creatinine Ratio 24.3 H, Glucose 55 L, Calcium 9.7 12/21/21 15:01: POC Glucose 132 H Radiology Impression Hip/Pelvis X-Ray 12/21/21 14:07 IMPRESSION: Marked degree of joint space and involving the right hip joint. Electronically Signed: Lang Montero MD at 14:36 EDT , Assessment & Plan Assessment/Plan (1) Acute pain of right lower extremity: (2) HTN (hypertension): (3) CKD (chronic kidney disease), stage IV: (4) DM2 (diabetes mellitus, type 2): QUALIFIERS: Diabetes mellitus complication status: with unspecified complications Diabetes mellitus longterm insulin use: with intermodal customer service use Qualified Code(s): E11.8 - Type 2 diabetes mellitus with unspecified complications; Z79.4 - salvage determiner (current) use of insulin PLAN: Plan 1. Intractable pain of right lower extremity Pt presents with three weeks of worsening anterior leg pain radiating to her foot with two days of severe pain Received 4mg of morphine and 1mg dilauded in the ED Pain has been refractory to prednisone as well as tylenol, tramadol, and gabapentin, though it appears those were used minimally and may reflect a lack of adequate dosage and schedule moreso than failure Pt took alieve at home as well but given kidney function cannot continue nsaids Will schedule 1g of tylenol three times daily with lyrica and add tramadol as the prn Can escalate further pending clinical response I suspect with a scheduled medication as well as the lyrica then tramadol may be more effective and the regimen as a whole will be a temporizing measure to further outpatient follow up Will obtain MRI to further characterize Consider ortho consult if escalating pain requirements/unable to control pain Will additionally add lidocaine patches PT/OT 2. DMII On presentation glucose 55 on BMP and pt reports her glucose was 70 last night and she did not take her 40u of long acting insulin but said she had very poor PO intake due to her pain Will start SSI and if glucose is increasing can resume long acting will order a1c as well 3. HTN Continue losartan and monitor 4. Morbid obesity Advise activity and diet modification 6. CKDIII Appears to be baseline avoid nephro toxic agents bmp daily Radha Bill MD Time spent >32 minutes Charges/Coding Visit Charges OBSV E&M: 52626 Initial observation care L1
[2021-12-21] MEDS: Lidocaine 5% Patch 2 PATCH TOPICAL (17:27)
[2021-12-21] MEDS: traMADol 50 MG Tablet PO ×2 (17:29→23:48)
[2021-12-21 17:45] LABS: Bedside Glucose 114 mg/dL (74-106)
[2021-12-21] MEDS: HYDROcodone Bitartrate/Apap 5/325 Tablet PO (19:56)
[2021-12-21 21:00] VITALS: BP 128/77; PULSE 99; RESP 18; TEMP 36.6; O2SAT 93
[2021-12-21] MEDS: MELATONIN 10 MG TABLET PO (21:47)
[2021-12-21] MEDS: Atorvastatin Calcium 20 MG Tablet PO (21:47)
[2021-12-21] MEDS: Pregabalin 25 MG Capsule PO (21:48)
[2021-12-21] MEDS: Heparin Injection (Vial) 5,000 UNIT/ML VIAL 5000 UNIT SC (21:48)
[2021-12-21] MEDS: Acetaminophen 500 MG Tablet 1000 MG PO (21:48)
[2021-12-21] MEDS: Insulin Lispro 100 UNIT/ML INSULN.PEN SC (21:48)
[2021-12-21 22:15] LABS: Bedside Glucose 185 mg/dL (74-106)
[2021-12-22] VITALS (11 sets, daily range): BP systolic 127–148; BP diastolic 53–90; PULSE 82–110; RESP 15–24; TEMP 36.4–36.7; O2SAT 92–98
[2021-12-22] MEDS: HYDROcodone Bitartrate/Apap 5/325 Tablet PO ×2 (03:01→14:29)
[2021-12-22 05:44] LABS: Absolute Neutrophil Count 6.7 X10^3/uL (2.0-7.7); Basophil# 0.03 X10^3/uL; Basophil% 0.3 % (0-1); Eosinophil# 0.23 X10^3/uL; Eosinophils% 2.6 % (0-5); Hematocrit 31.1 % (37-47); Hemoglobin 9.8 g/dL (12.0-15.0); Lymphocyte % 13.5 % (19-41); Mean Corp Hgb Conc 31.5 g/dL (32-36); Mean Corpuscular Hgb 31.2 pg (27.0-32.0); Mean Platelet Vol. 9.4 fl (6.2-12.0); Monocyte# 0.66 X10^3/uL; Monocyte% 7.4 % (0-10); NRBC Flagged by Analyzer 0 % (0-5); Neutrophil # 6.68 X10^3/uL (2.7-7.7); Neutrophil % 75.5 % (47-70); Platelet Count 221 K/mm3 (150-450); RBC Distribution Width CV 13.8 % (11.6-14.6); RBC Distribution Width SD 49.9 fl (35.1-43.9); Red Blood Count 3.14 M/mm3 (4.2-5.4); White Blood Count 8.9 K/mm3 (4.4-11.0)
--- NOTE | 2021-12-22 06:00 | MRI_ITS ---
STUDY: MRI LUMBAR SPINE WITHOUT CONTRAST REASON FOR EXAM: Female, 76 years old. Intractable back and hip pain radiating to foot TECHNIQUE: Standardized fat and water weighted pulse sequences were obtained in the sagittal and axial planes. COMPARISON: MRI lumbar spine without contrast 09/13/2016. FINDINGS: T10-T11: (Sagittal only). Prominent the central Schmorl''s node in the T11 superior endplate and the partially included T10 inferior endplate. These account for the increased central disc space height. Normal central canal and bilateral intervertebral neural foramina. T11-T12 and T12-L1: (Sagittal only). Normal endplates. Normal disc height, hydration and morphology. No ventral extradural defects. Normal central canal and bilateral intervertebral neural foramina. Normal lumbar lordosis. There is no substantial scoliosis. Normal conus medullaris that terminates at the lower T12 vertebral body level. L1-2: Normal endplates. Normal disc height, hydration and morphology. Normal bilateral facet joints. Normal central canal and bilateral lateral recesses. Normal bilateral intervertebral neural foramina. L2-3: MODIC type II degenerative vertebral marrow fatty changes underneath the right intervertebral endplates. Moderate disc space height narrowing. Mild asymmetric degenerative facet arthropathy. Normal central canal and bilateral lateral recesses. Normal bilateral intervertebral neural foramina. 1.8 cm right renal cyst is visible at this level. This was previously 1.5 cm. L3-4: Mild central compression fracture of the L4 superior endplate. This is unchanged. Normal L3 inferior endplate. Mild ventral extra dural defect due to small posterior bulging annulus is a new finding. Mild asymmetric degenerative facet arthropathy. Normal central canal and bilateral lateral recesses. Normal bilateral intervertebral neural foramina. L4-5: Normal endplates. Normal disc height and morphology. Mild bilateral degenerative facet arthropathy. Normal central canal and bilateral lateral recesses. Normal bilateral intervertebral neural foramina. L5-S1: Normal endplates. Moderate anterior disc space height narrowing. Mild anterolisthesis of L5 on S1 due to bilateral L5 pars defects. Normal hypoplastic facet joints. Normal central canal and bilateral lateral recesses. Mild stenosis of the bilateral intervertebral neural foramina. Normal visualized sacral ala. Normal visualized paraspinous soft tissue structures. MRI/Spine Lumbar (Routine) IMPRESSION: 1. Mild anterolisthesis of L5 on S1 secondary to bilateral L5 pars defects and mild stenosis of the bilateral intervertebral neural foramina. 2. Small L3-L4 posterior bulging annulus is a new finding. 3. No MRI evidence of lumbar extruded disc fragment or nerve root displacement. 4. No significant elbow change when compared to 09/13/2016. Electronically Signed: Noel Garay MD at 13:32 EDT ,
--- NOTE | 2021-12-22 06:00 | MRI_ITS ---
STUDY: MRI RIGHT HIP REASON FOR EXAM: Female, 76 years old. Intractable hip pain into leg TECHNIQUE: Standardized fat and water weighted pulse sequences were obtained in all 3 orthogonal planes. COMPARISON: None. FINDINGS: There is mild articular narrowing of the hip joint, with less than 50% loss of the hyaline cartilage. There is small joint effusion. There is small cysts of the superior acetabulum. Normal labrum. Normal femoral head. Normal femoral neck and intratrochanteric region. There is no demonstrated fracture. Normal gluteus minimus, medius and iliopsoas tendons and distal insertions. There is no trochanteric, iliopsoas or iliopectineal bursitis. Normal superior and inferior pubic rami. Normal pubic symphysis. Normal ischial tuberosity. Normal origin of the hamstring tendons. Normal visualized iliac wing, sacroiliac joint, and sacral ala. Normal visualized soft tissue structures of the pelvis. Uterus is not seen consistent with hysterectomy. Normal bladder. MRI/Lower Ext Joint Only (Routine) IMPRESSION: Degenerative change. No fracture or avascular necrosis. Electronically Signed: Bhavesh Jimenez MD at 13:31 EDT ,
[2021-12-22] MEDS: Pregabalin 25 MG Capsule PO ×2 (06:22→14:42)
[2021-12-22] MEDS: Acetaminophen 500 MG Tablet 1000 MG PO ×2 (06:24→14:28)
[2021-12-22] MEDS: Heparin Injection (Vial) 5,000 UNIT/ML VIAL 5000 UNIT SC ×2 (06:29→14:14)
[2021-12-22 06:39] LABS: ALB/GLOB Ratio 0.9 RATIO (0.9-2.4); AST(SGOT) 18 U/L (15-37); Alanine Aminotransfer ALT/SGPT 30 U/L (13-56); Albumin, Serum 2.9 g/dL (3.2-5.0); Alkaline Phosphatase 48 U/L (45-117); Anion Gap 8 (5-15); BUN 43 mg/dL (7-18); BUN/Creat Ratio 22.3 RATIO (10-20); Chloride 103 mmol/L (98-107); Creatinine, Serum 1.93 mg/dL (0.55-1.02); EST Glomerular Filtration Rate 27 mL/min (>60); Est Glom Filt Rate - Afr Amer 32 mL/min (>60); Estimated Creatinine Clearance 20.19 ml/min; Globulin 3.4 g/dL (2.2-4.2); Glucose 130 mg/dL (74-106); Potassium 5.3 mmol/L (3.5-5.1); Protein, Total 6.3 g/dL (6.4-8.2); Sodium Level 133 mmol/L (136-145)
[2021-12-22 06:50] LABS: Bedside Glucose 123 mg/dL (74-106)
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
[2021-12-22 09:18] LABS: Hemoglobin A1c 6.8 % (3.8-5.6)
[2021-12-22] MEDS: traMADol 50 MG Tablet PO (09:40)
[2021-12-22] MEDS: Losartan Potassium 50 MG Tablet PO (09:42)
[2021-12-22] MEDS: Venlafaxine XR 37.5 MG Capsule PO (09:42)
[2021-12-22] MEDS: FLU VACC QS2022-23(6MOS UP)/PF 60 MCG/0.5 ML SYRINGE IM (10:35)
[2021-12-22] MEDS: LORazepam 2 MG/ML Syringe IV (11:00)
--- NOTE | 2021-12-22 12:02 | NURSING ---
PT IN MRI. MRI STAFF CALLED REQUESTING PAIN MEDS FOR PT. NO IV MEDS AVAILABLE. TXT SENT TO DR COBB, THEN MRI STAFF CALLED AGAIN TO SAY THAT DR COBB HAD JUST WALKED BY AND GAVE A VERBAL ORDER AND THEIR STAFF WOULD MEDICATE HER.
[2021-12-22] MEDS: HYDROmorphone 1 MG/ML Syringe IV (12:04)
--- NOTE | 2021-12-22 13:20 | CASEMGMT ---
Addendum entered by Alice Gonzalez 12/22/21 14:12: Pt accepted for services from [facility]. Pt is aware. Original Note: Patient was provided a list of [facility] providers including quality and resource use data and consistent with the patient?s preferred geographic region, medical needs, and insurance network were provided from the [facility] Guide. Pt chose [facility]. SYLVAIN LINTON sent referral via [facility] at this time. Will await acceptance.
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
[2021-12-22] MEDS: Insulin Lispro 100 UNIT/ML INSULN.PEN SC ×2 (14:15→16:35)
[2021-12-22 14:21] LABS: Bedside Glucose 208 mg/dL (74-106)
[2021-12-22] MEDS: Lidocaine 5% Patch 2 PATCH TOPICAL (14:24)
[2021-12-22 17:20] LABS: Bedside Glucose 180 mg/dL (74-106)
== END 2021-12-22 17:01 | disposition home health service (06) ==
LOC: ED 14:42 → MS3 15:47
PROVIDERS: Admitting Provider Internal Medicine; Emergency Provider Emergency Medicine; PCP Internal Medicine; Visit Provider Internal Medicine
DX: M79.604 Pain in right leg (principal); E11.649 Type 2 diabetes mellitus with hypoglycemia without coma; E11.22 Type 2 diabetes mellitus with diabetic chronic kidney disease; E11.40 Type 2 diabetes mellitus with diabetic neuropathy, unspecified; N18.4 Chronic kidney disease, stage 4 (severe); Z68.42 Body mass index [BMI] 45.0-49.9, adult; E66.01 Morbid (severe) obesity due to excess calories; Z79.4 Long term (current) use of insulin; I12.9 Hypertensive chronic kidney disease with stage 1 through stage 4 chronic kidney disease, or unspecified chronic kidney disease; Z87.891 Personal history of nicotine dependence; Z79.891 Long term (current) use of opiate analgesic; Z79.899 Other long term (current) drug therapy; Z86.718 Personal history of other venous thrombosis and embolism; E87.5 Hyperkalemia; D63.8 Anemia in other chronic diseases classified elsewhere; F32.A Depression, unspecified; Z23 Encounter for immunization
CPT/HCPCS: 96372 ×2; 96374; 96375 ×2; 96376; 99285; 36415; 36591; 72148; 73502; 73721; 80048; 80053; 82962; 83036; 85025; 97162; 97166; 97802; 99218; J7030; 90686; A4216; G0378; J2405

== ENCOUNTER 2021-12-25 16:13 | Inpatient (IN) | payer MEDICARE, OTHER, SELFPAY ==
[2021-12-25 16:14] VITALS: BP 144/79; PULSE 108; RESP 16; TEMP 36; O2SAT 98; BMI 47.8
--- NOTE | 2021-12-25 17:20 | EDS_ITS ---
HPI History of Present Illness Chief Complaint: Lower Extremity Injury Detail of Chief Complaint: Failure to thrive at home. Family wants custodial placement. Informant: patient and family Onset/Context/Timing Onset: Weeks Context: Gradual Onset Timing: Continuous Current Severity: Mild Maximum Severity: Mild Narrative Narrative: 76-year-old female history of anemia, hypertension, chronic kidney disease, diabetes and depression. Recent hospitalization and was placed on medications for depression and neuropathic leg pain. Sons with her said she is unable to make it at home. They saw a asset protection specialist today who thought that she should be admitted and placed in a custodial for rehabilitation. Prior similar symptoms: Yes Recent Illness/Hospitalization: Yes PFSH [facility] Medical History DVT (deep venous thrombosis) Kidney disease Kidney stones Home Medications simvastatin 40 mg tablet 40 mg PO QHS cholesterol 12/16/12 [History Last Taken 12/20/21] gabapentin 300 mg capsule (Neurontin) 300 tab PO BID 11/07/16 [History Last Taken 12/19/21] epoetin zari 10,000 unit/mL injection solution (Epogen) 13,000 unit subcut QMONTH anemia 01/27/18 [History Last Taken 3 Weeks Ago ~11/30/21] melatonin 10 mg sublingual tablet 10 mg PO QHS 02/20/18 [Rx Last Taken 12/18/21] calcitriol 0.5 mcg capsule 0.5 mcg PO DAILY 08/09/21 [History Last Taken 12/21/21] losartan 50 mg tablet 50 mg PO DAILY 08/09/21 [History Last Taken 12/21/21] vit C 226 mg-vit E 90 mg-copper 0.8 mg-zinc oxide-lutein 5 mg capsule (PreserVision Lutein) 1 cap PO DAILY 08/09/21 [History Last Taken 12/21/21] naproxen sodium 220 mg tablet (Aleve) 440 mg PO DAILY PRN PAIN AND SWELLING 12/21/21 [History Last Taken 12/20/21] pioglitazone 30 mg tablet 30 mg PO QODAY DM 12/21/21 [History Last Taken 12/21/21] tramadol 50 mg tablet 50 mg PO Q8H PRN PRN RIGHT LEG PAIN 12/21/21 [History Last Taken 12/21/21 03:30] venlafaxine 37.5 mg capsule,extended release 24 hr 37.5 mg PO DAILY NERVES 12/21/21 [History Last Taken 12/20/21] acetaminophen 500 mg tablet 1,000 mg PO Q8 #20 tabs 12/22/21 [Rx Last Taken 12/20/21] cyclobenzaprine 5 mg tablet 5 mg PO TID PRN muscle spasm #14 tabs 12/22/21 [Rx Last Taken Unknown] insulin glargine 100 unit/mL (3 mL) subcutaneous pen (Lantus Solostar U-100 Insulin) 10 unit (0.1 mL) subcut DAILY #15 mL 12/22/21 [Rx Last Taken Unknown] lidocaine 5 % topical patch 2 patch topical DAILY #14 ea 12/22/21 [Rx Last Taken Unknown] oxycodone 5 mg tablet 5 mg PO Q6H PRN pain 5 days #16 tabs 12/22/21 [Rx Last Taken Unknown] Allergy/AdvReac Type Severity Reaction Status Date / Time levofloxacin [From Levaquin] Allergy Hives Verified 12/21/21 11:38 Sulfa (Sulfonamide Allergy Hives Verified 12/21/21 11:38 Antibiotics) Family History Sister Breast cancer Other Heart disease Prostate cancer Surgical History History of appendectomy History of cholecystectomy Social History household members: none number of children: 2 Smoking Status: Former smoker alcohol intake: never substance use type: does not use additional social history: Lives alone in a house in [facility] ROS ED ROS Narrative Leg pain. Review of Systems ROS Unobtainable: Denies due to encephalopathy Constitutional Constitutional ED: Denies chills or fever(s) Eyes Eyes: Denies blurry vision ENT ENT ED: Denies ear pain Cardiovascular Cardiovascular: Denies chest pain Respiratory/Chest Respiratory/Chest: Denies cough or dyspnea Gastrointestinal Gastrointestinal: Denies abdominal pain Genitourinary Genitourinary ED: Denies dysuria or hematuria Musculoskeletal Musculoskeletal: Denies arthralgias Integumentary Denies abscess Neurologic Neurologic: Denies headache(s) Psychiatric Psychiatric: Reports depression and suicidal thoughts; Denies anxiety Endocrine Endocrinology: Denies cold intolerance Hematologic/Lymphatic Hematologic/Lymphatic: Reports anemia Allergic/Immunologic Allergic/Immunologic ED: Denies mouth swelling or tongue swelling EXAM Physical Exam Narrative Exam Narrative: 36-year-old female no acute distress. Vital signs are stable afebrile. She is anxious and depressed in bed. She does not look septic or toxic. Son at bedside. H EENT exam unremarkable. Lungs are clear. Heart regular rhythm no murmur rate about 105. Abdomen soft nontender. Morbidly obese. Moving all 4 extremities. 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 Normal dorsi plantar flexion. Neurologically she is awake and alert. Answering questions and following commands. Const Vital Signs: 12/25/21 16:14 Temperature 96.8 F L Temperature Source Temporal Pulse Rate 108 H Respiratory Rate 16 Blood Pressure 144/79 H Blood Pressure Mean 100 Pulse Ox 98 Oxygen Delivery Method Room Air Positive well nourished, well developed and obese; Negative for cachectic, contractures or unkempt General Appearance ED: well developed and NAD; Negative for unkempt, cachectic, contractures, cyanotic or diaphoretic Nutritional Appearance: obese; Negative for cachectic HEENT Reports moist mucous membranes; Denies dry mucous membranes Negative for trauma or tenderness Mouth ED: No dry mucous membranes Mouth: No dry mucous membranes Eyes PERRL and EOMs intact bilaterally General Eye ED: Negative for pale conjunctiva or scleral icterus Neck no lymphadenopathy, supple and no JVD General: Negative for tenderness Lymph Lymphatic: Negative for other Chest Wall inspection of chest normal and palpation of chest normal Chest: Negative for other Resp normal respiratory effort and clear to auscultation bilaterally Effort and Inspection: Negative for retractions Auscultation: Negative for rales, rhonchi or wheezes Cardio regular rate, regular rhythm, S1 normal heart sound, S2 normal heart sound and no murmurs Palpation: Negative for palpable S3 Rate: Negative for bradycardia Rhythm: Negative for abnormal rhythm GI normal to inspection, nondistended, normoactive bowel sounds, non-tender, non- distended and no masses Inspection: Negative for abdominal distention Auscultation: normoactive bowel sounds Palpation: soft; Negative for tender or guarding Back/Spine no CVA tenderness General Back: Negative for CVA tenderness Cervical Spine: Negative for cervical spine tenderness Thoracic Spine / Upper Back: Negative for thoracic spinal tenderness Lumbar Spine / Lower Back: Negative for lumbar spinal tenderness Extremity normal to inspection General Extremety ED: Negative for edema or tenderness General Extremity: Negative for edema Neuro oriented x3 Sensorium / Orientation: alert; Negative for orientation impaired, lethargic or stuporous Motor Exam: strength 5/5 throughout; Negative for general weakness Psych mental status grossly normal Appearance: Negative for unkempt Attitude: No agitated Mood & Affect: Negative for depressed or anxious Skin no rashes or lesions noted and no wounds General Skin Exam: Negative for elasticity normal Lesions: No lesion noted Rashes: No rashes noted Trauma: Negative for abrasion Wounds: Negative for wounds noted MDM MDM MDM Narrative Medical decision making narrative: 76-year-old family is requesting custodial placement for failure to thrive and depression. She just had labs within the last 3 days. I will speak to the hospitalist about admission. If they want additional labs Discharge Plan Triage Chief Complaint: Lower Extremity Injury ED Provider: Ezra Stoner Dx/Rx/DC Orders Clinical Impression: Adult failure to thrive, Anemia, Diabetes mellitus, CKD (chronic kidney disease), stage IV, Depression Prescriptions: No Action simvastatin 40 MG tablet 40 mg PO QHS Label Comments: CHOLESTEROL gabapentin [Neurontin] 300 MG capsule 300 tab PO BID Epogen 10,000 UNIT/ML solution 13,000 unit subcut QMONTH Label Comments: TAKES EVERY 4 WEEKS FOR ANEMIA melatonin 10 MG tablet 10 mg PO QHS 0RF losartan 50 mg Tablet 50 mg PO DAILY calcitriol 0.5 mcg Capsule 0.5 mcg PO DAILY PreserVision Lutein 226 mg-200 unit -0.8 mg-5 mg Capsule 1 cap PO DAILY venlafaxine 37.5 mg capsule,extended release 24hr 37.5 mg PO DAILY tramadol 50 mg tablet 50 mg PO Q8H PRN PRN (Reason: RIGHT LEG PAIN) naproxen sodium [Aleve] 220 mg Tablet 440 mg PO DAILY PRN (Reason: PAIN AND SWELLING) pioglitazone 30 mg tablet 30 mg PO QODAY lidocaine 5 % Adhesive Patch,Medicated 2 patch topical DAILY Qty: 14 0RF Protocol: *Topical Application Instructions APPLICATION INSTRUCTIONS: Apply to R groin/top of thigh oxycodone 5 mg tablet 5 mg PO Q6H PRN (Reason: pain) 5 Days Qty: 16 0RF cyclobenzaprine 5 mg tablet 5 mg PO TID PRN (Reason: muscle spasm) Qty: 14 0RF acetaminophen 500 mg Tablet 1,000 mg PO Q8 Qty: 20 0RF insulin glargine [Lantus Solostar U-100 Insulin] 100 UNITS/ML insulin pen 10 unit subcut DAILY Qty: 15 0RF Primary Care Provider: Neel Ng Referrals: Neel Ng MD [Primary Care Provider] - Disposition Disposition: Acute Care Hospital [facility]
--- NOTE | 2021-12-25 17:20 | CM.ED ---
MARI Note MARI met with patient and her son in ED room #2. Patient voiced that she is in pain. Patient was previously in [place] in the past. Patient denied any current SI and stated that she could remain safe. Son reports that patient has had minor depression and the her PCP prescribed her Effexor but she has just taken it for 2 days. Patient also takes gabapentin. Son said that on Saturday patient was stating she wanted to to stop the pain and stated that she wanted to commit suicide to stop the pain. MARI asked patient if she had any plan and she said pills. Patient said that if she did not have the pain she would not want to kill herself. Patient voiced no current SI. Patient's son said that patient's reports of SI are all pain related. No previous psych history except for minor depression when as she aged. MARI updated MD Stoner and inquired if he needed this designer/writer to complete assessment and he said no. MARI updated TERI, RN Madison GREEN
--- NOTE | 2021-12-25 18:08 | NURSING ---
MED SURG LEANNE FAILURE TO THRIVE, WEAKNESS, CKD, DM
[2021-12-25 18:15] VITALS: BP 140/65; PULSE 99; RESP 18; TEMP 36.2; O2SAT 98
--- NOTE | 2021-12-25 18:18 | CM.ED ---
SW Note SW met with patient and her 2 sons. Patient denied SI again. SW reviewed that patient is being admitted and that the plan is SNF. Patient was provided with SNF list for [facility] and [facility]. Patient voiced her first choice is [facility] and patient's son voiced they were comfortable with [facility] as a referral. No further SW needs at this time. Madison GREEN
[2021-12-25 18:54] VITALS: BMI 50.1
[2021-12-25 19:02] VITALS: BP 166/86; PULSE 107; RESP 20; TEMP 36.6; O2SAT 98
--- NOTE | 2021-12-25 19:22 | HP.PCM.HOS_ITS ---
HPI - General General Date of Admission: 12/25/21 Date of Service: 12/25/21 Chief Complaint: back pain and debility HPI Narrative VAL ERICKSON, is a 76 F who presents with ongoing back pain and right leg pain. Patient was just discharged on the seventh with the same. Patient was discharged home. Patient was falling at home several times and the patient's sons were overwhelmed the brought the patient to Dr. Eastman's office. He informed them that given the amount of spinal stenosis that she did have that any surgery that she would have would be extensive and recommended following up with pain management to see if epidural would be of any benefit. Is also recommended to them that she may benefit from additional therapy and rehab. Patient has been so uncomfortable that she is stated that she would rather kill herself to deal with this ongoing pain. The sons were concerned about medications causing her to be sick too somnolent but still having a lot of pain despite that. [facility] Medical History DVT (deep venous thrombosis) Kidney disease Kidney stones Home Medications simvastatin 40 mg tablet 40 mg PO QHS cholesterol 12/16/12 [History Last Taken 12/24/21] gabapentin 300 mg capsule (Neurontin) 300 tab PO BID 11/07/16 [History Last Taken 12/25/21] epoetin zari 10,000 unit/mL injection solution (Epogen) 13,000 unit subcut QMONTH anemia 01/27/18 [History Last Taken 3 Weeks Ago ~11/30/21] melatonin 10 mg sublingual tablet 10 mg PO QHS 02/20/18 [Rx Last Taken 12/18/21] calcitriol 0.5 mcg capsule 0.5 mcg PO DAILY 08/09/21 [History Last Taken 12/25/21] losartan 50 mg tablet 50 mg PO DAILY 08/09/21 [History Last Taken 12/25/21] vit C 226 mg-vit E 90 mg-copper 0.8 mg-zinc oxide-lutein 5 mg capsule (PreserVision Lutein) 1 cap PO DAILY 08/09/21 [History Last Taken 12/25/21] naproxen sodium 220 mg tablet (Aleve) 440 mg PO DAILY PRN PAIN AND SWELLING 12/21/21 [History Last Taken 2 Days Ago ~12/23/21] pioglitazone 30 mg tablet 30 mg PO QODAY DM 12/21/21 [History Last Taken 12/24/21] tramadol 50 mg tablet 50 mg PO Q8H PRN PRN RIGHT LEG PAIN 12/21/21 [History Last Taken 12/21/21 03:30] venlafaxine 37.5 mg capsule,extended release 24 hr 37.5 mg PO DAILY NERVES 12/21/21 [History Last Taken 12/24/21] acetaminophen 500 mg tablet 1,000 mg PO Q8 #20 tabs 12/22/21 [Rx Last Taken 2 Days Ago ~12/23/21] cyclobenzaprine 5 mg tablet 5 mg PO TID PRN muscle spasm #14 tabs 12/22/21 [Rx Last Taken 12/25/21] lidocaine 5 % topical patch 2 patch topical DAILY #14 ea 12/22/21 [Rx Last Taken 12/24/21] oxycodone 5 mg tablet 5 mg PO Q6H PRN pain 5 days #16 tabs 12/22/21 [Rx Last Taken 12/25/21] glimepiride 4 mg tablet 4 mg PO DAILY 12/25/21 [History Last Taken 12/25/21] insulin glargine 100 unit/mL (3 mL) subcutaneous pen (Lantus Solostar U-100 Insulin) 40 unit subcut DAILY 12/25/21 [History Last Taken 12/24/21] Allergy/AdvReac Type Severity Reaction Status Date / Time levofloxacin [From Levaquin] Allergy Hives Verified 12/21/21 11:38 Sulfa (Sulfonamide Allergy Hives Verified 12/21/21 11:38 Antibiotics) Family History Sister Breast cancer Other Heart disease Prostate cancer Surgical History History of appendectomy History of cholecystectomy Social History household members: none number of children: 2 Smoking Status: Former smoker alcohol intake: never substance use type: does not use additional social history: Lives alone in a house in [facility] Narrative No bowel or bladder incontinence. General debility. All review of systems were negative except as mentioned above in the history of present illness and the other review of systems. Vital Signs Vital Signs Vital Signs: 12/25/21 16:14 12/25/21 18:15 12/25/21 19:02 Temperature 36.0 C L 36.2 C L 36.6 C Temperature Source Temporal Temporal Oral Pulse Rate 108 H 99 107 H Respiratory Rate 16 18 20 H Blood Pressure 144/79 H 140/65 H 166/86 H Blood Pressure Mean 100 90 112 Blood Pressure Source Monitor Blood Pressure Position Semi-Fowlers Blood Pressure Location Right Forearm Pulse Ox 98 98 98 Oxygen Delivery Method Room Air Room Air Room Air Weight Weight: 128.2 kg Body Mass Index (BMI) 50.1 Physical Exam Const alert and no apparent distress HEENT normocephalic and head/scalp atraumatic Resp normal respiratory effort, no retractions, no use of accessory muscles and clear to auscultation bilaterally Cardio regular rate, regular rhythm, S1 normal heart sound and S2 normal heart sound GI normal to inspection, nondistended, normoactive bowel sounds, soft to palpation, non-tender, non-distended and hepatosplenomegaly Extremity normal to inspection and no clubbing, cyanosis or edema Neuro oriented x3, moves all extremities and no focal motor deficits Neuro Narrative: Sensation grossly intact in lower extremities Assessment & Plan Assessment/Plan (1) Adult failure to thrive: PLAN: Due to the patient's underlying back pain PT OT evaluate and treat. Discussed with the patient as well as her sons that process would be therapy seeing her, getting their evaluation and then having to go to case management to then need to get approval through her insurance. Strong encourage patient, despite her pain to work with therapy. 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 Small L3-L4 posterior bulging annulus. No MRI evidence of lumbar extruded disc fragment or nerve root displacement. I did discuss the case with Dr. Eastman and he stated there is nothing surgical that he would offer as she would be unlikely to tolerate any invasive surgery and recommended consulting Dr. Dinero for evaluation of an epidural injection. The plan, continue with scheduled acetaminophen, Lidoderm patches. She utilize oxycodone but hold for somnolence and also add as needed ketorolac for now. We will check some basic labs as well as an INR for the morning in case patient is deemed a candidate for an epidural injection. PLAN: Plan Chronic conditions * Diabetes mellitus type 2: Continue with glimepiride, glargine and also has sliding scale insulin. * Hypertension: Stable not on any medications. * Hyperlipidemia: Per history not any medications. * Anemia: Stable at 9.8 from the seventh. Follow-up labs in the a.m. On epopoetin VTE prophylaxis: Moderate risk. Enoxaparin CODE STATUS: Addressed with the patient. Patient wished to be DNR Comfort Care arrest but okay for intubation. Charges/Coding Visit Charges Inpatient E&M: 75184 Init Hosp L2
[2021-12-25] MEDS: 0.9% Saline Lock 10 ML Syringe IV ×2 (20:30→20:37)
[2021-12-25] MEDS: HYDROmorphone 0.5 MG/0.5 ML SYRINGE IV (20:32)
[2021-12-25] MEDS: MELATONIN 10 MG TABLET PO (22:00)
[2021-12-25] MEDS: Atorvastatin Calcium 20 MG Tablet PO (22:00)
[2021-12-25] MEDS: cycloBENZAPRine HCl 5 MG TABLET PO (22:01)
[2021-12-25] MEDS: Acetaminophen 500 MG Tablet 1000 MG PO (22:01)
[2021-12-25] MEDS: oxyCODONE 5 MG Tablet 10 MG PO (22:04)
[2021-12-25 22:30] LABS: Bedside Glucose 161 mg/dL (74-106)
[2021-12-26] MEDS: HYDROmorphone 0.5 MG/0.5 ML SYRINGE IV ×2 (00:28→16:54)
[2021-12-26] MEDS: 0.9% Saline Lock 10 ML Syringe IV (00:28)
[2021-12-26 00:58] VITALS: BP 95/64; PULSE 84; RESP 16; TEMP 36.6; O2SAT 98
[2021-12-26] MEDS: oxyCODONE 5 MG Tablet 10 MG PO ×3 (02:57→22:00)
[2021-12-26 05:45] LABS: Absolute Lymphocyte Count 1.61 X10^3/uL (0.83-4.51); Absolute Neutrophil Count 6.9 X10^3/uL (2.0-7.7); Basophil# 0.04 X10^3/uL; Basophil% 0.4 % (0-1); Eosinophil# 0.24 X10^3/uL; Eosinophils% 2.4 % (0-5); Hemoglobin 9.8 g/dL (12.0-15.0); Lymphocyte # 1.61 X10^3/ul (0.83-4.51); Lymphocyte % 16.2 % (19-41); Mean Corp Hgb Conc 32.7 g/dL (32-36); Mean Corpuscular Hgb 31.3 pg (27.0-32.0); Mean Corpuscular Volume 95.8 fL (81-99); Mean Platelet Vol. 9.1 fl (6.2-12.0); Monocyte# 1.03 X10^3/uL; Monocyte% 10.4 % (0-10); NRBC Flagged by Analyzer 0 % (0-5); Neutrophil # 6.89 X10^3/uL (2.7-7.7); Neutrophil % 69.5 % (47-70); Platelet Count 208 K/mm3 (150-450); RBC Distribution Width CV 13.9 % (11.6-14.6); RBC Distribution Width SD 48.4 fl (35.1-43.9); Red Blood Count 3.13 M/mm3 (4.2-5.4); White Blood Count 9.9 K/mm3 (4.4-11.0)
[2021-12-26 06:01] LABS: International Normalized Ratio 1.1; Prothrombin Time (Protime)PT. 13.8 SECONDS (11.7-14.9)
[2021-12-26 06:10] LABS: Anion Gap 7 (5-15); BUN 37 mg/dL (7-18); BUN/Creat Ratio 19.9 RATIO (10-20); Calcium,Total 8.9 mg/dL (8.5-10.1); Chloride 94 mmol/L (98-107); Creatinine, Serum 1.86 mg/dL (0.55-1.02); EST Glomerular Filtration Rate 28 mL/min (>60); Est Glom Filt Rate - Afr Amer 34 mL/min (>60); Estimated Creatinine Clearance 20.95 ml/min; Glucose 77 mg/dL (74-106); Potassium 4.4 mmol/L (3.5-5.1); Sodium Level 124 mmol/L (136-145)
[2021-12-26] MEDS: Acetaminophen 500 MG Tablet 1000 MG PO ×3 (06:34→22:02)
[2021-12-26 06:50] VITALS: BP 120/73; PULSE 95; RESP 18; TEMP 36.6; O2SAT 97
[2021-12-26 07:05] LABS: Bedside Glucose 65 mg/dL (74-106)
[2021-12-26 07:21] LABS: Bedside Glucose 76 mg/dL (74-106)
--- NOTE | 2021-12-26 10:11 | PCM.PN.HOSP ---
Subjective Subjective Follow-up on acute on chronic back pain: Patient was seen and examined. She complains of low back pain. Pain management has been consulted. Denied any incontinence of stool or urine. Objective Data Objective Data Vital Signs: Vital Signs Temp Pulse Resp BP Pulse Ox O2 Del Method 97.8 F 95 18 120/73 97 Room Air 12/26/21 06:50 12/26/21 06:50 12/26/21 06:50 12/26/21 06:50 12/26/21 06:50 12/26/21 06:50 Oxygen Delivery Method Room Air Weight: 128.2 kg Body Mass Index (BMI) 50.1 Intake & Output: Intake and Output for Last 24 Hours 12/24/21 12/25/21 12/26/21 23:59 23:59 23:59 Output Total 825 / 825 Balance -825 / -825 Lab / Micro Data Result Diagrams: 12/26/21 05:29 12/26/21 05:29 Labs: Laboratory Results - last 24 hr 12/25/21 21:57: POC Glucose 161 H 12/26/21 05:29: WBC 9.9, RBC 3.13 L, Hgb 9.8 L, Hct 30.0 L, MCV 95.8, MCH 31.3, MCHC 32.7, RDW Std Deviation 48.4 H, RDW Coeff of Yoel 13.9, Plt Count 208, MPV 9.1, Immature Gran % (Auto) 1.100 H, Neut % (Auto) 69.5, Lymph % (Auto) 16.2 L, [place] % (Auto) 10.4 H, Eos % (Auto) 2.4, Baso % (Auto) 0.4, Absolute Neuts (auto) 6.9, Absolute Lymphs (auto) 1.61, Nucleated RBC % 0 12/26/21 05:29: PT 13.8, INR 1.1 12/26/21 05:29: Sodium 124 L, Potassium 4.4, Chloride 94 L, Carbon Dioxide 23.0, Anion Gap 7, BUN 37 H, Creatinine 1.86 H, Estim Creat Clear Calc 20.95, Est GFR (MDRD) Af Amer 34 L, Est GFR (MDRD) Non-Af 28 L, BUN/Creatinine Ratio 19.9, Glucose 77, Calcium 8.9 12/26/21 06:33: POC Glucose 65 L 12/26/21 07:03: POC Glucose 76 Physical Exam Narrative Physical exam: General: Alert, Oriented x3, Cooperative, morbidly obese HEENT: Atraumatic Oral: Moist Mucosa Neck: Supple Lungs: Diminished to auscultation Cardiovascular: HS I+II, regular, no murmurs Abdomen: Bowel Sounds Present, Soft, Non Tender Extremities: Trace bilateral leg edema Skin: No rashes, No breakdown Neurological: Grossly intact Psych/Mental Status: Appropriate Assessment & Plan Assessment/Plan (1) Back pain: QUALIFIERS: Back pain location: low back pain Chronicity: chronic Back pain laterality: right Sciatica presence: with sciatica Sciatica laterality: sciatica of right side Qualified Code(s): M54.41 - Lumbago with sciatica, right side; G89.29 - Other chronic pain (2) Adult failure to thrive: PLAN: Plan 1. Acute intractable right lower extremity pain, recent MRI of the back showed mild anterolisthesis of L5 on S1 secondary to bilateral L5 pars defect and mild stenosis of the bilateral intervertebral neural foraminal. Pain management consulted for epidural injection PT/OT to evaluate and treat 2. Type II DM with episodes of hypoglycemia, HbA1c 6.8 We will discontinue Actos and Amaryl Hold Lantus for now To monitor blood glucose for now 3. Hypertension, controlled, continue losartan 4. Hyperlipidemia, continue statin 5. Anemia, anemia of chronic disease, hemoglobin is stable at 9.8 6. CKD stage stage IV, creatinine remains stable 7. Morbid obesity, BMI 50.1, lifestyle modification recommended 8. DVT prophylaxis?Lovenox subcu BID Charges/Coding Visit Charges Inpatient E&M: 66537 Subs Hosp L2
[2021-12-26 10:16] VITALS: BP 108/65; PULSE 90; RESP 18; TEMP 36.9; O2SAT 97
[2021-12-26] MEDS: Lidocaine 5% Patch 2 PATCH TOPICAL (10:29)
[2021-12-26] MEDS: Multivitamin (Healthy Eyes) Capsule 1 CAP PO (10:30)
[2021-12-26] MEDS: Enoxaparin 40 MG/0.4 ML Syringe SC (10:30)
[2021-12-26] MEDS: Gabapentin 300 MG Capsule PO ×3 (10:30→18:13)
[2021-12-26] MEDS: Calcitriol 0.25 MCG Capsule 0.5 MCG PO (10:30)
[2021-12-26] MEDS: Losartan Potassium 50 MG Tablet PO (10:30)
[2021-12-26] MEDS: Venlafaxine XR 37.5 MG Capsule PO (10:31)
--- NOTE | 2021-12-26 11:13 | CASEMGMT ---
Discharge Explosive Man Yue roman/lashay reference library assistant sent referral to [place] via [facility]. Will follow up. Plan: Elkin, Jonathan Acceptance Yue Jeffries Discharge Explosive Man
[2021-12-26 11:20] LABS: Bedside Glucose 151 mg/dL (74-106)
[2021-12-26] MEDS: Glucerna Shake 120 ML LIQUID PO ×2 (14:33→22:04)
--- NOTE | 2021-12-26 16:01 | CASEMGMT ---
Discharge Shell Worker Elkin reached out on [facility] wanting to do a on site visit. Yue called Elkin and left a voicemail and message Elkni in [facility]. Waiting on Elkin to call back. Plan: Elkin, Jonathan Acceptance Yue Jeffries Discharge Shell Worker
[2021-12-26 16:52] VITALS: BP 124/77; PULSE 95; RESP 18; TEMP 36.6; O2SAT 96
[2021-12-26] MEDS: Insulin Lispro 100 UNIT/ML INSULN.PEN SC (16:54)
[2021-12-26 16:56] LABS: Bedside Glucose 162 mg/dL (74-106)
[2021-12-26 22:00] VITALS: BP 131/89; PULSE 93; RESP 18; TEMP 36.8; O2SAT 96
[2021-12-26] MEDS: MELATONIN 10 MG TABLET PO (22:00)
[2021-12-26] MEDS: Atorvastatin Calcium 20 MG Tablet PO (22:01)
[2021-12-26 22:30] LABS: Bedside Glucose 200 mg/dL (74-106)
[2021-12-27] VITALS (12 sets, daily range): BP systolic 118–148; BP diastolic 55–95; PULSE 94–102; RESP 15–16; TEMP 36.3–36.7; O2SAT 94–99; BMI 50.1
[2021-12-27] MEDS: HYDROmorphone 0.5 MG/0.5 ML SYRINGE IV ×2 (03:29→08:10)
[2021-12-27] MEDS: 0.9% Saline Lock 10 ML Syringe IV ×4 (03:30→18:37)
--- NOTE | 2021-12-27 05:55 | EKG12_ITS ---
Test Reason : PRE OP Blood Pressure : / mmHG Vent. Rate : 093 BPM Atrial Rate : 093 BPM P-R Int : 212 ms QRS Dur : 130 ms QT Int : 370 ms P-R-T Axes : 063 -34 161 degrees QTc Int : 460 ms Sinus rhythm with 1st degree A-V block Left axis deviation Left bundle branch block Abnormal ECG Confirmed by PENELOPE MIJARES, DENIS ([id number]), medical transcription editor CAMDEN WRAY ([id number]) on 12/28/2021 1:06:02 PM Referred By: SEMAJ Confirmed By:DENIS NEGRETE MD
[2021-12-27] MEDS: Lactated Ringers 1,000 ML 15 ML IV (06:19)
[2021-12-27] MEDS: Acetaminophen 500 MG Tablet 1000 MG PO (06:21)
[2021-12-27 06:26] LABS: Absolute Lymphocyte Count 1.13 X10^3/uL (0.83-4.51); Absolute Neutrophil Count 6.5 X10^3/uL (2.0-7.7); Basophil# 0.03 X10^3/uL; Basophil% 0.3 % (0-1); Eosinophil# 0.25 X10^3/uL; Eosinophils% 2.9 % (0-5); Hematocrit 28.6 % (37-47); Hemoglobin 9.5 g/dL (12.0-15.0); Lymphocyte # 1.13 X10^3/ul (0.83-4.51); Lymphocyte % 13.1 % (19-41); Mean Corp Hgb Conc 33.2 g/dL (32-36); Mean Corpuscular Hgb 31.6 pg (27.0-32.0); Mean Platelet Vol. 9.1 fl (6.2-12.0); Monocyte# 0.61 X10^3/uL; Monocyte% 7.1 % (0-10); NRBC Flagged by Analyzer 0 % (0-5); Neutrophil # 6.49 X10^3/uL (2.7-7.7); Neutrophil % 75.1 % (47-70); Platelet Count 229 K/mm3 (150-450); RBC Distribution Width CV 13.9 % (11.6-14.6); RBC Distribution Width SD 47.7 fl (35.1-43.9); Red Blood Count 3.01 M/mm3 (4.2-5.4); White Blood Count 8.6 K/mm3 (4.4-11.0)
[2021-12-27 06:42] LABS: Partial Thromboplast Time 28.7 Seconds (24.1-36.2)
[2021-12-27 06:45] LABS: Bedside Glucose 178 mg/dL (74-106)
[2021-12-27 06:57] LABS: Anion Gap 7 (5-15); BUN 40 mg/dL (7-18); BUN/Creat Ratio 21.1 RATIO (10-20); Calcium,Total 9.2 mg/dL (8.5-10.1); Chloride 92 mmol/L (98-107); EST Glomerular Filtration Rate 27 mL/min (>60); Est Glom Filt Rate - Afr Amer 33 mL/min (>60); Estimated Creatinine Clearance 20.51 ml/min; Glucose 168 mg/dL (74-106); Potassium 5.2 mmol/L (3.5-5.1); Sodium Level 123 mmol/L (136-145)
--- NOTE | 2021-12-27 07:14 | PCM.PN.HOSP ---
Subjective Subjective Follow-up on acute on chronic back pain: Patient was seen and examined.? Pain in the right lower extremity persist. Patient is going for epidural injection today. No other acute events overnight. Objective Data Objective Data Vital Signs: Vital Signs Temp Pulse Resp BP Pulse Ox O2 Del Method 97.6 F L 94 16 125/72 H 96 Room Air 12/27/21 03:48 12/27/21 03:48 12/27/21 03:48 12/27/21 03:48 12/27/21 03:48 12/27/21 03:48 Oxygen Delivery Method Room Air Weight: 128.2 kg Body Mass Index (BMI) 50.1 Intake & Output: Intake and Output for Last 24 Hours 12/25/21 12/26/21 12/27/21 23:59 23:59 23:59 Intake Total 600 / 600 Output Total 1525 / 1625 100 / 100 Balance -925 / -1025 -100 / -100 Lab / Micro Data Result Diagrams: 12/27/21 06:10 12/27/21 06:10 Labs: Laboratory Results - last 24 hr 12/26/21 07:03: POC Glucose 76 12/26/21 10:57: POC Glucose 151 H 12/26/21 16:25: POC Glucose 162 H 12/26/21 22:09: POC Glucose 200 H 12/27/21 06:10: WBC 8.6, RBC 3.01 L, Hgb 9.5 L, Hct 28.6 L, MCV 95.0, MCH 31.6, MCHC 33.2, RDW Std Deviation 47.7 H, RDW Coeff of Yoel 13.9, Plt Count 229, MPV 9.1, Immature Gran % (Auto) 1.500 H, Neut % (Auto) 75.1 H, Lymph % (Auto) 13.1 L, [place] % (Auto) 7.1, Eos % (Auto) 2.9, Baso % (Auto) 0.3, Absolute Neuts (auto) 6.5, Absolute Lymphs (auto) 1.13, Nucleated RBC % 0 12/27/21 06:10: APTT 28.7 12/27/21 06:10: Sodium 123 L, Potassium 5.2 H, Chloride 92 L, Carbon Dioxide 24.0, Anion Gap 7, BUN 40 H, Creatinine 1.90 H, Estim Creat Clear Calc 20.51, Est GFR (MDRD) Af Amer 33 L, Est GFR (MDRD) Non-Af 27 L, BUN/Creatinine Ratio 21.1 H, Glucose 168 H, Calcium 9.2 12/27/21 06:25: POC Glucose 178 H Physical Exam Narrative Physical exam: General: Alert, Oriented x3, Cooperative, morbidly obese HEENT: Atraumatic Oral: Moist Mucosa Neck: Supple Lungs: Diminished to auscultation Cardiovascular: HS I+II, regular, no murmurs Abdomen: Bowel Sounds Present, Soft, Non Tender Extremities: Trace bilateral leg edema Skin: No rashes, No breakdown Neurological: Grossly intact Psych/Mental Status: Appropriate Assessment & Plan Assessment/Plan (1) Intractable neuropathic pain of right lower extremity: PLAN: Plan 1.?Acute intractable right lower extremity pain, recent MRI of the back showed mild anterolisthesis of L5 on S1 secondary to bilateral L5 pars defect and mild stenosis of the bilateral intervertebral neural foraminal. Epidural injection by pain management today PT/OT to continue to evaluate and treat 2. Type II DM with episodes of hypoglycemia, HbA1c 6.8 Blood sugars are fairly controlled Off Actos, Amaryl, Lantus Blood glucose checks with insulin sliding scale 3. Hypertension, controlled, continue losartan 4. Hyperlipidemia, continue statin 5. Anemia, anemia of chronic disease, hemoglobin is stable at 9.8 6. CKD stage stage IV, creatinine remains stable 7. Morbid obesity, BMI 50.1, lifestyle modification recommended 8. DVT prophylaxis?Lovenox subcu BID Charges/Coding Visit Charges Inpatient E&M: 84092 Subs Hosp L2
--- NOTE | 2021-12-27 07:15 | PCM.TXEXTCAR ---
Diet Diet Order/Speech Therapy: 12/27/21 00:01 Cardiac diet, 2gram sodium Routine Orders/Code Status Suppository Type: Dulcolax 10mg Suppository Frequency: Daily PRN Keep PO Greater than or Equal to (%): 92 Routine Lab Work: CBC (within 3 days) and - (CMP within 3 days) Code Status: DNRCC-A Therapies Weight Bearing: Weight bearing as tolerated Physical Therapy: Eval and Treat Occupational Therapy: Eval and Treat Problem/Diagnosis (1) Back pain: Status: Acute Code(s): M54.9 - Dorsalgia, unspecified (2) Adult failure to thrive: Status: Acute Code(s): R62.7 - Adult failure to thrive Plan 1. Acute intractable right lower extremity pain 2. Type II DM 3. Hypertension 4. Hyperlipidemia 5. Anemia of chronic disease, hemoglobin is stable at 9.8 6. CKD stage stage IV 7. Morbid obesity Allergies/Procedures Done in Hospital Allergies levofloxacin [From Levaquin] Allergy (Verified 12/21/21 11:38) Hives Sulfa (Sulfonamide Antibiotics) Allergy (Verified 12/21/21 11:38) Hives Procedures: - (epidural steroid injection, 12/27/21) Type of Care/Length of Stay Estimated LOS: Convalescent Care Less Than 30 days Type of Care Needed: Skilled Rehab Potential: Good Prognosis: Good Additional Orders/Day of Discharge Day of Discharge: 12/27/21 Dietary and Speech Recommendations Dietitian Recommendations/Changes: Will change diet to 1800 CCD diet to manage blood glucose Continue Glucerna supplements, will reassess need at follow-up. Discharge Plan Admission Admit Date/Time: 12/25/21 19:13 Primary Reason for Your Visit: Acute intractable leg pain Attending Provider: Darlene Maguire Primary Care Provider: Neel Ng Consulting Providers: Cruzito Ferris ; Sivakumar Dinero Discharge Orders/Prescriptions Prescriptions: New gabapentin 300 mg Capsule 300 mg PO TIDCM Qty: 0 0RF Glucerna 1.2 Osmel 0.06-1.2 gram-kcal/mL Liquid 120 ml PO 4X/DAY Qty: 0 0RF Continued simvastatin 40 MG tablet 40 mg PO QHS Label Comments: CHOLESTEROL Epogen 10,000 UNIT/ML solution 13,000 unit subcut QMONTH Label Comments: TAKES EVERY 4 WEEKS FOR ANEMIA melatonin 10 MG tablet 10 mg PO QHS 0RF losartan 50 mg Tablet 50 mg PO DAILY calcitriol 0.5 mcg Capsule 0.5 mcg PO DAILY PreserVision Lutein 226 mg-200 unit -0.8 mg-5 mg Capsule 1 cap PO DAILY venlafaxine 37.5 mg capsule,extended release 24hr 37.5 mg PO DAILY pioglitazone 30 mg tablet 30 mg PO QODAY lidocaine 5 % Adhesive Patch,Medicated 2 patch topical DAILY Qty: 14 0RF Protocol: *Topical Application Instructions APPLICATION INSTRUCTIONS: Apply to R groin/top of thigh cyclobenzaprine 5 mg tablet 5 mg PO TID PRN (Reason: muscle spasm) Qty: 14 0RF acetaminophen 500 mg Tablet 1,000 mg PO Q8 Qty: 20 0RF glimepiride 4 mg tablet 4 mg PO DAILY insulin glargine [Lantus Solostar U-100 Insulin] 100 UNITS/ML insulin pen 40 unit subcut DAILY oxycodone 5 mg tablet 5 mg PO Q6H PRN (Reason: pain) 3 Days Qty: 12 0RF Discontinued gabapentin [Neurontin] 300 MG capsule 300 tab PO BID tramadol 50 mg tablet 50 mg PO Q8H PRN PRN (Reason: RIGHT LEG PAIN) naproxen sodium [Aleve] 220 mg Tablet 440 mg PO DAILY PRN (Reason: PAIN AND SWELLING) Referrals / Follow Up: Neel Ng MD [Primary Care Provider] - (1) Back pain Qualifiers: Back pain laterality: right Back pain location: low back pain Chronicity: chronic Sciatica laterality: sciatica of right side Sciatica presence: with sciatica Qualified Code(s): M54.41 - Lumbago with sciatica, right side; G89.29 - Other chronic pain
--- NOTE | 2021-12-27 09:52 | CASEMGMT ---
Discharge Fur Remodeler Yue d/lashay volunteer services assistant called [facility] and left a message and also messaged [facility] in [facility]. Will keep following up Plan: [facility], Jonathan Acceptance Yue Jeffries Discharge Fur Remodeler
--- NOTE | 2021-12-27 10:21 | CASEMGMT ---
Discharge Cardiothoracic Icu Rn Yue d/lashay assistant refinery operator sent a referral to [facility] in [place]. Patient second choice. Yue has not been able to get in touch with [facility]. [facility] wanted to do an on site and Yue has not heard back. Plan: [place] vs [facility], Waiting on Acceptance Yue Jeffries Discharge Cardiothoracic Icu Rn
--- NOTE | 2021-12-27 10:49 | CASEMGMT ---
Discharge Lead Javascript Engineer [facility] reached out via [facility]. [facility] denied patient due to no beds at this time. Yue called [facility] regarding referral that was sent. Yue spoke with [facility]. [facility] does not have any beds at this time. Yue will get a third choice from patient Plan: Needing third SNF choice Yue Jeffries Discharge Lead Javascript Engineer
--- NOTE | 2021-12-27 11:12 | CASEMGMT ---
Discharge Addiction Specialist Yue spoke with patient. Patient third choice would be [facility] in [place]. Yue called [facility] and left a voicemail and also sent a referral via [facility]. Will follow up. Plan: [facility], Waiting Acceptance Yue Jeffries Discharge Addiction Specialist
[2021-12-27 12:00] LABS: Bedside Glucose 134 mg/dL (74-106)
--- NOTE | 2021-12-27 12:44 | CASEMGMT ---
Social Work SW notified by Yue De La Garza, discharge internal medicine physician assistant that pt thrid choice is unable to accept. SW spoke to pt. Pt willing to try [facility] in [place] as 4th choice. Notified Yue Duran of pt choice. Yue to send referral. PLAN:[facility] in [place], pending acceptance. JAG Greenfield
--- NOTE | 2021-12-27 13:28 | CASEMGMT ---
Discharge Director Hris Yue burns dental laboratory assistant sent referral to [facility] via [facility]. Will follow up. Plan: [facility], Waiting Acceptance Yue Jeffries Discharge Director Hris
--- NOTE | 2021-12-27 14:13 | NURSING ---
Patient remains off the floor in procedure with Dr. Dinero.
--- NOTE | 2021-12-27 14:17 | CASEMGMT ---
Discharge Black Oxide Operator Yue d/lashay clinical data assistant called [facility] and spoke to Aroldo. Aroldo will look at referral and call Yue harp. Plan: [facility], Waiting Acceptance Yue Jeffries Discharge Black Oxide Operator
--- NOTE | 2021-12-27 15:17 | CASEMGMT ---
Discharge Geophysical Laboratory Supervisor Yue d/c medical record assistant reached out to [facility] in [place]. [facility] needed to know a transport time before accepting the patient. Yue called [facility] and set up a transport time of 5:30pm wheel chair pickler helper. Yue told [facility] and [facility] accepted patient. MARI Mckoy was made aware of pickler helper time and will send orders. Patient is still off floor but, will keep updated. Plan: Key Jeffries Discharge Geophysical Laboratory Supervisor
--- NOTE | 2021-12-27 15:28 | RAD_ITS ---
STUDY: INTRAOPERATIVE FLUOROSCOPY TECHNIQUE: The examination was performed with referring physician in attendance. Under fluoroscopic observation, fluoroscopic images were obtained. Radiologist was not present for the study. Radiologist did not perform the procedure. This dictation is for documentation of the radiation dosage only. There is no interpretation of the images. TOTAL NUMBER OF IMAGES: 1 COMPARISON: None RADIATION DOSE: 1.57 mGy FLUOROSCOPY TIME: 3.4 seconds REASON FOR EXAM: BLOCK Female, 76 years old. FINDINGS: Image of the lumbar spine. Spinal needed noted. RAD/Spine 1 View Any Level IMPRESSION: Fluoroscopic assistance images were obtained. Dictation for documentation purposes only. Electronically Signed: Ishan Upton MD at 17:00 EDT ,
[2021-12-27] MEDS: Triamcinolone Acetonide 40 MG/ML Vial (15:39)
--- NOTE | 2021-12-27 16:10 | CASEMGMT ---
Social Work MARI completed H[facility] 4180. Yue Duran Discharge bar assistant set up time for wheelchair transport through [facility] for 6:30pm. MARI notified pt nurse of time. Ordered covid test for when pt returns to [facility] floor. MARI faxed discharge orders to [facility] via [employer]. Placed copies of orders on pt chart and originals in envelope to go with pt. MARI provided information for discharge to racing secretary/RAZ Maharaj for transportation. Disposition: [facility], skilled Convalescent level of care JAG Greenfield
--- NOTE | 2021-12-27 16:10 | CASEMGMT ---
Discharge Bpo Specialist Patient is not back to her room yet. Yue rescheduled transportation with [facility] New hand picker time will be 6:30pm. [facility] is okay with this ariana. Yue notified MARI Mckoy. Plan: Key Jeffries Discharge Bpo Specialist
[2021-12-27] MEDS: oxyCODONE 5 MG Tablet 10 MG PO (18:08)
[2021-12-27] MEDS: Gabapentin 300 MG Capsule PO (18:09)
--- NOTE | 2021-12-27 18:29 | NURSING ---
Report called to [facility].
--- NOTE | 2021-12-27 20:11 | DS.PCM_ITS ---
Providers Date of Admission: 12/25/21 Date of Discharge: 12/27/21 Primary Care Physician: Dr. Neel Ng MD Consultations 12/25/21 19:37 Consult: Pain Management Routine Consulting Provider: Sivakumar Dinero Reason for Consult: back pain. spinal stenosis. EMERGENT Consult: No MD Notified: Yes Date Notified: 12/26/21 Time Notified: 08:03 Method of Notification: Answering Service Reason For Visit: FAILURE TO THRIVE, BACK PAIN Diagnosis Discharge Diagnosis (1) Intractable neuropathic pain of right lower extremity: Status: Acute Code(s): M79.2 - Neuralgia and neuritis, unspecified Plan 1.?Acute intractable right lower extremity pain 2. Type II DM with episodes of hypoglycemia 3. Hypertension 4. Hyperlipidemia 5. Anemia of chronic disease 6. CKD stage stage IV 7. Morbid obesity Medications at Discharge Home Medications simvastatin 40 mg tablet 40 mg PO QHS cholesterol 12/16/12 epoetin zari 10,000 unit/mL injection solution (Epogen) 13,000 unit subcut QMONTH anemia 01/27/18 melatonin 10 mg sublingual tablet 10 mg PO QHS 02/20/18 calcitriol 0.5 mcg capsule 0.5 mcg PO DAILY 08/09/21 losartan 50 mg tablet 50 mg PO DAILY 08/09/21 vit C 226 mg-vit E 90 mg-copper 0.8 mg-zinc oxide-lutein 5 mg capsule (PreserVision Lutein) 1 cap PO DAILY 08/09/21 pioglitazone 30 mg tablet 30 mg PO QODAY DM 12/21/21 venlafaxine 37.5 mg capsule,extended release 24 hr 37.5 mg PO DAILY NERVES 12/21/21 acetaminophen 500 mg tablet 1,000 mg PO Q8 #20 tabs 12/22/21 cyclobenzaprine 5 mg tablet 5 mg PO TID PRN muscle spasm #14 tabs 12/22/21 lidocaine 5 % topical patch 2 patch topical DAILY #14 ea 12/22/21 glimepiride 4 mg tablet 4 mg PO DAILY 12/25/21 insulin glargine 100 unit/mL (3 mL) subcutaneous pen (Lantus Solostar U-100 Insulin) 40 unit subcut DAILY 12/25/21 gabapentin 300 mg capsule 300 mg PO TIDCM #0 caps 12/27/21 nutrition tx glu intol,lac-free,soy-fiber 0.06 gram-1.2 kcal/mL liquid (Glucerna 1.2 Osmel) 120 ml PO 4X/DAY #0 mL 12/27/21 oxycodone 5 mg tablet 5 mg PO Q6H PRN pain 3 days #12 tabs 12/27/21 Hospital Course Operations None Procedures Paracentesis and - (epidural injection 12/27/21) Summary of Care Provided Minutes Spent on Discharge: 35 Hospital Course: 76-year-old female with past medical history of Morbid obesity, hypertension, type II DM, CKD stage IV, spinal stenosis who was recently discharged on 12/22/2021 after admission with acute right lower extremity pain ongoing for more than 3 weeks. In the admission, x-ray of the hip and pelvis showed mild degree of joint space narrowing of the right hip joint. X-ray of her knees previously done by her primary care doctor has shown degenerative changes. MRI of the spine done on 12/22/2021 showed mild anterior listhesis of L5 on S1 secondary to bilateral L5 pars defects and mild stenosis of the bilateral intervertebral neural foramina. Patient was discharged home on the pain regimen and asked to follow-up with orthopedics in the outpatient. Since her discharge on 12/22/2021, patient had fallen several times. Patient's sons are overwhelmed with her care and per the patient to Dr. Rincon's office. She was reportedly told that surgery would be extensive given the amount of spinal stenosis. She was referred to pain management. Patient was brought to the ED with the hopes of being placed for subacute rehab. Pain management/Dr. Dinero were consulted for epidural injection. Patient had epidural injection on 12/27/21. She was [facility] Physical Exam Narrative See progress note of the day Weight / BMI Weight Weight: 128.2 kg Body Mass Index (BMI) 50.1 ABG / Lab / Microbiology Data Result Diagrams: 12/27/21 06:10 12/27/21 06:10 Laboratory: Laboratory Results - last 24 hr 12/26/21 22:09: POC Glucose 200 H 12/27/21 06:10: WBC 8.6, RBC 3.01 L, Hgb 9.5 L, Hct 28.6 L, MCV 95.0, MCH 31.6, MCHC 33.2, RDW Std Deviation 47.7 H, RDW Coeff of Yoel 13.9, Plt Count 229, MPV 9.1, Immature Gran % (Auto) 1.500 H, Neut % (Auto) 75.1 H, Lymph % (Auto) 13.1 L , [place] % (Auto) 7.1, Eos % (Auto) 2.9, Baso % (Auto) 0.3, Absolute Neuts (auto) 6.5, Absolute Lymphs (auto) 1.13, Nucleated RBC % 0 12/27/21 06:10: APTT 28.7 12/27/21 06:10: Sodium 123 L, Potassium 5.2 H, Chloride 92 L, Carbon Dioxide 24.0, Anion Gap 7, BUN 40 H, Creatinine 1.90 H, Estim Creat Clear Calc 20.51, Est GFR (MDRD) Af Amer 33 L, Est GFR (MDRD) Non-Af 27 L, BUN/Creatinine Ratio 21.1 H, Glucose 168 H, Calcium 9.2 12/27/21 06:10: Hemoglobin A1c 7.0 H 12/27/21 06:25: POC Glucose 178 H 12/27/21 11:41: POC Glucose 134 H Radiography Diagnostic Testing: Radiology Impression Spine X-Ray 12/27/21 15:28 IMPRESSION: Fluoroscopic assistance images were obtained. Dictation for documentation purposes only. Electronically Signed: Ishan Upton MD at 17:00 EDT Reading Location ID and State: [address] [place] [address] , Service support , D/C Instructions Discharge Diet: Low fat / Low cholesterol and 2000 mg Sodium Diet Meaningful Use Info Meaningful Use Diagnoses (Choose all that apply): None applicable Discharge Plan Admission Admit Date/Time: 12/25/21 19:13 Primary Reason for Your Visit: Acute intractable leg pain Attending Provider: Darlene Maguire Primary Care Provider: Neel Ng Consulting Providers: Cruzito Ferris ; Sivakumar Dinero Discharge Orders/Prescriptions Prescriptions: New gabapentin 300 mg Capsule 300 mg PO TIDCM Qty: 0 0RF Glucerna 1.2 Osmel 0.06-1.2 gram-kcal/mL Liquid 120 ml PO 4X/DAY Qty: 0 0RF Continued simvastatin 40 MG tablet 40 mg PO QHS Label Comments: CHOLESTEROL Epogen 10,000 UNIT/ML solution 13,000 unit subcut QMONTH Label Comments: TAKES EVERY 4 WEEKS FOR ANEMIA melatonin 10 MG tablet 10 mg PO QHS 0RF losartan 50 mg Tablet 50 mg PO DAILY calcitriol 0.5 mcg Capsule 0.5 mcg PO DAILY PreserVision Lutein 226 mg-200 unit -0.8 mg-5 mg Capsule 1 cap PO DAILY venlafaxine 37.5 mg capsule,extended release 24hr 37.5 mg PO DAILY pioglitazone 30 mg tablet 30 mg PO QODAY lidocaine 5 % Adhesive Patch,Medicated 2 patch topical DAILY Qty: 14 0RF Protocol: *Topical Application Instructions APPLICATION INSTRUCTIONS: Apply to R groin/top of thigh cyclobenzaprine 5 mg tablet 5 mg PO TID PRN (Reason: muscle spasm) Qty: 14 0RF acetaminophen 500 mg Tablet 1,000 mg PO Q8 Qty: 20 0RF glimepiride 4 mg tablet 4 mg PO DAILY insulin glargine [Lantus Solostar U-100 Insulin] 100 UNITS/ML insulin pen 40 unit subcut DAILY oxycodone 5 mg tablet 5 mg PO Q6H PRN (Reason: pain) 3 Days Qty: 12 0RF Discontinued gabapentin [Neurontin] 300 MG capsule 300 tab PO BID tramadol 50 mg tablet 50 mg PO Q8H PRN PRN (Reason: RIGHT LEG PAIN) naproxen sodium [Aleve] 220 mg Tablet 440 mg PO DAILY PRN (Reason: PAIN AND SWELLING) Referrals / Follow Up: Neel Ng MD [Primary Care Provider] - Disposition Disposition (needs filled in before D/C Order can be placed): [facility] Charges/Coding Visit Charges Inpatient E&M: 19018 Disch Hosp
== END 2021-12-27 19:15 | disposition skilled nursing facility (03) | DRG 552 ==
LOC: ED 17:34 → MS3 19:26
PROVIDERS: Anesthesiology; Anesthesiology Pain Medicine; Emergency Provider Emergency Medicine; PCP Internal Medicine; Visit Provider Internal Medicine
PROC: 3E0S3BZ Introduction of Anesthetic Agent into Epidural Space, Percutaneous Approach (ICD-10-PCS; CPT 62322; principal; 2021-12-27 14:10)
DX: M43.17 Spondylolisthesis, lumbosacral region (principal); Z68.43 Body mass index [BMI] 50.0-59.9, adult; N18.4 Chronic kidney disease, stage 4 (severe); E11.649 Type 2 diabetes mellitus with hypoglycemia without coma; D63.8 Anemia in other chronic diseases classified elsewhere; R62.7 Adult failure to thrive; E11.22 Type 2 diabetes mellitus with diabetic chronic kidney disease; E11.40 Type 2 diabetes mellitus with diabetic neuropathy, unspecified; Z79.4 Long term (current) use of insulin; E66.01 Morbid (severe) obesity due to excess calories; M54.16 Radiculopathy, lumbar region; M54.41 Lumbago with sciatica, right side; M48.061 Spinal stenosis, lumbar region without neurogenic claudication; E78.5 Hyperlipidemia, unspecified; I12.9 Hypertensive chronic kidney disease with stage 1 through stage 4 chronic kidney disease, or unspecified chronic kidney disease; E87.5 Hyperkalemia; G89.29 Other chronic pain; R29.6 Repeated falls; F32.A Depression, unspecified; Z66 Do not resuscitate; Z79.1 Long term (current) use of non-steroidal anti-inflammatories (NSAID); Z86.718 Personal history of other venous thrombosis and embolism; Z87.891 Personal history of nicotine dependence; Z23 Encounter for immunization; Z79.899 Other long term (current) drug therapy
CPT/HCPCS: 36415; 36591; 72020; 72148; 73502; 73721; 76000; 80048; 80053; 82962; 83036; 85025; 85610; 85730; 93005; 96372; 96374; 96375; 96376; 97162; 97166; 97535; 97802; 99218; 99283; 99285; G0008; J7030; J7120; 90686; A4216; G0378; J2405

== ENCOUNTER 2021-12-29 08:53 | Outpatient (CLI) | payer MEDICARE, OTHER, SELFPAY ==
[2021-12-29 09:24] LABS: Hematocrit 31.1 % (37-47); Hemoglobin 10.2 g/dL (12.0-15.0)
[2021-12-29 09:36] LABS: Albumin, Serum 3.1 g/dL (3.2-5.0); BUN 37 mg/dL (7-18); BUN/Creat Ratio 20.2 RATIO (10-20); Calcium,Total 9.8 mg/dL (8.5-10.1); Chloride 99 mmol/L (98-107); Creatinine, Serum 1.83 mg/dL (0.55-1.02); EST Glomerular Filtration Rate 28 mL/min (>60); Est Glom Filt Rate - Afr Amer 34 mL/min (>60); Glucose 192 mg/dL (74-106); Phosphorus 2.7 mg/dL (2.5-4.9); Potassium 5.3 mmol/L (3.5-5.1); Sodium Level 132 mmol/L (136-145)
[2021-12-29 09:51] VITALS: PULSE 99; RESP 16; O2SAT 100; BMI 47.8
[2021-12-29] MEDS: Epoetin Alfa-EPBX 20,000 unit/ml 13000 UNIT SC (09:59)
== END 2021-12-29 23:59 | disposition home or self-care (01) ==
LOC: MEDOUTP 08:53
PROVIDERS: PCP Internal Medicine; Referring Provider Internal Medicine Nephrology; Visit Provider Internal Medicine Nephrology
DX: N18.32 Chronic kidney disease, stage 3b (principal); D63.1 Anemia in chronic kidney disease
CPT/HCPCS: 36591; 80069; 85014; 85018; 96372; A4216; Q5106

== ENCOUNTER → 2022-02-02 | Outpatient (CLI) | payer MEDICARE, OTHER, SELFPAY ==
[2022-02-02 09:31] LABS: Hematocrit 29.9 % (37-47); Hemoglobin 9.1 g/dL (12.0-15.0)
[2022-02-02 09:50] LABS: Albumin, Serum 3.2 g/dL (3.2-5.0); BUN 51 mg/dL (7-18); BUN/Creat Ratio 24.9 RATIO (10-20); Calcium,Total 10.2 mg/dL (8.5-10.1); Chloride 96 mmol/L (98-107); Creatinine, Serum 2.05 mg/dL (0.55-1.02); EST Glomerular Filtration Rate 25 mL/min (>60); Est Glom Filt Rate - Afr Amer 30 mL/min (>60); Ferritin 44 ng/mL (8-252); Glucose 104 mg/dL (74-106); Iron 71 ug/dL (50-170); Iron Binding Capacity,Total 360 ug/dL (250-450); PERCENT IRON SATURATION 19.7 % (15.0-55.0); Phosphorus 4.3 mg/dL (2.5-4.9); Potassium 4.4 mmol/L (3.5-5.1); Sodium Level 137 mmol/L (136-145)
[2022-02-02] MEDS: Epoetin Alfa epbx 10,000 UNITS/ML 13000 UNIT SC (10:03)
== END | disposition home or self-care (01) ==
LOC: MEDOUTP 09:02
PROVIDERS: PCP Internal Medicine; Referring Provider Internal Medicine Nephrology; Visit Provider Internal Medicine Nephrology
DX: N18.32 Chronic kidney disease, stage 3b (principal); D63.1 Anemia in chronic kidney disease
CPT/HCPCS: 36591; 80069; 82728; 83540; 83550; 85014; 85018; 96372; A4216; Q5106

== ENCOUNTER → 2022-03-02 | Outpatient (CLI) | payer MEDICARE, OTHER, SELFPAY ==
[2022-03-02 08:58] LABS: Hematocrit 32.6 % (37-47); Hemoglobin 10.1 g/dL (12.0-15.0)
[2022-03-02 09:05] VITALS: BP 130/81; PULSE 101; RESP 16; TEMP 36.1; O2SAT 98; BMI 50.3
[2022-03-02 09:08] LABS: Albumin, Serum 3.4 g/dL (3.2-5.0); BUN 49 mg/dL (7-18); BUN/Creat Ratio 20.8 RATIO (10-20); Calcium,Total 9.6 mg/dL (8.5-10.1); Chloride 102 mmol/L (98-107); Creatinine, Serum 2.36 mg/dL (0.55-1.02); EST Glomerular Filtration Rate 21 mL/min (>60); Est Glom Filt Rate - Afr Amer 26 mL/min (>60); Estimated Creatinine Clearance 16.25 ml/min; Glucose 178 mg/dL (74-106); Phosphorus 3.8 mg/dL (2.5-4.9); Potassium 4.3 mmol/L (3.5-5.1); Sodium Level 138 mmol/L (136-145)
[2022-03-02] MEDS: Epoetin Alfa epbx 10,000 UNITS/ML 13000 UNIT SC (09:21)
== END | disposition home or self-care (01) ==
LOC: MEDOUTP 08:28
PROVIDERS: PCP Internal Medicine; Referring Provider Internal Medicine Nephrology; Visit Provider Internal Medicine Nephrology
DX: N18.32 Chronic kidney disease, stage 3b (principal); D63.1 Anemia in chronic kidney disease
CPT/HCPCS: 36592; 80069; 85014; 85018; 96372; A4216; Q5106

== ENCOUNTER → 2022-03-30 | Outpatient (CLI) | payer MEDICARE, OTHER, SELFPAY ==
[2022-03-30 09:52] LABS: Hematocrit 34.4 % (37-47); Hemoglobin 10.6 g/dL (12.0-15.0); Mean Corp Hgb Conc 30.8 g/dL (32-36); Mean Corpuscular Hgb 29.9 pg (27.0-32.0); Mean Corpuscular Volume 96.9 fL (81-99); Mean Platelet Vol. 10.4 fl (6.2-12.0); Platelet Count 208 K/mm3 (150-450); RBC Distribution Width CV 14.2 % (11.6-14.6); RBC Distribution Width SD 50.2 fl (35.1-43.9); Red Blood Count 3.55 M/mm3 (4.2-5.4); White Blood Count 7.3 K/mm3 (4.4-11.0)
[2022-03-30 10:08] LABS: ALB/GLOB Ratio 0.9 RATIO (0.9-2.4); AST(SGOT) 16 U/L (15-37); Alanine Aminotransfer ALT/SGPT 27 U/L (13-56); Albumin, Serum 3.2 g/dL (3.2-5.0); Alkaline Phosphatase 57 U/L (45-117); Anion Gap 6 (5-15); BUN 51 mg/dL (7-18); BUN/Creat Ratio 22.4 RATIO (10-20); Calcium,Total 9.4 mg/dL (8.5-10.1); Chloride 103 mmol/L (98-107); Cholesterol 73 mg/dL (200); Creatinine, Serum 2.28 mg/dL (0.55-1.02); EST Glomerular Filtration Rate 22 mL/min (>60); Est Glom Filt Rate - Afr Amer 27 mL/min (>60); Globulin 3.5 g/dL (2.2-4.2); Glucose 90 mg/dL (74-106); High Density Lipoprotein 45 mg/dL; Phosphorus 3.4 mg/dL (2.5-4.9); Potassium 4.2 mmol/L (3.5-5.1); Protein, Total 6.7 g/dL (6.4-8.2); Sodium Level 139 mmol/L (136-145); Triglycerides 58 mg/dL; Very Low Density Lipoprotein 12 mg/dL (5-40)
[2022-03-30 10:10] LABS: Hemoglobin A1c 7.7 % (3.8-5.6)
[2022-03-30 10:30] LABS: Microalbumin:Creatinine Ratio 142.3 mg/g CRE (<30 mg/g CRE); Protein, Urine (Random) 34.7 mg/dL (<11.9); Protein:Creat Ratio 313 mg/g CRE (0-200)
== END | disposition home or self-care (01) ==
LOC: MEDOUTP 09:09
PROVIDERS: PCP Internal Medicine; Referring Provider Internal Medicine Nephrology; Visit Provider Internal Medicine Nephrology
DX: E11.22 Type 2 diabetes mellitus with diabetic chronic kidney disease (principal); N18.32 Chronic kidney disease, stage 3b; I12.9 Hypertensive chronic kidney disease with stage 1 through stage 4 chronic kidney disease, or unspecified chronic kidney disease; D63.1 Anemia in chronic kidney disease; R80.9 Proteinuria, unspecified; E78.2 Mixed hyperlipidemia
CPT/HCPCS: 36591; 80053; 80061; 82043; 82570; 83036; 84100; 84156; 85027; A4216

== ENCOUNTER → 2022-04-27 | Outpatient (CLI) | payer MEDICARE, OTHER, SELFPAY ==
[2022-04-27 09:29] LABS: Hematocrit 32.4 % (37-47); Hemoglobin 9.9 g/dL (12.0-15.0)
[2022-04-27 09:40] VITALS: BP 141/68; PULSE 92; RESP 16; TEMP 36.1; O2SAT 98; BMI 46.5
[2022-04-27] MEDS: Epoetin Alfa-EPBX 20,000 unit/ml 13000 UNIT SC (09:44)
[2022-04-27 09:52] LABS: Albumin, Serum 2.9 g/dL (3.2-5.0); BUN 40 mg/dL (7-18); BUN/Creat Ratio 19.1 RATIO (10-20); Calcium,Total 9.5 mg/dL (8.5-10.1); Chloride 104 mmol/L (98-107); Creatinine, Serum 2.09 mg/dL (0.55-1.02); EST Glomerular Filtration Rate 24 mL/min (>60); Est Glom Filt Rate - Afr Amer 29 mL/min (>60); Estimated Creatinine Clearance 18.35 ml/min; Ferritin 41 ng/mL (8-252); Glucose 228 mg/dL (74-106); Iron 60 ug/dL (50-170); Iron Binding Capacity,Total 295 ug/dL (250-450); PERCENT IRON SATURATION 20.3 % (15.0-55.0); Phosphorus 3.3 mg/dL (2.5-4.9); Potassium 4.7 mmol/L (3.5-5.1); Sodium Level 137 mmol/L (136-145)
== END | disposition home or self-care (01) ==
LOC: MEDOUTP 08:52
PROVIDERS: PCP Internal Medicine; Referring Provider Internal Medicine Nephrology; Visit Provider Internal Medicine Nephrology
DX: N18.32 Chronic kidney disease, stage 3b (principal); D63.1 Anemia in chronic kidney disease
CPT/HCPCS: 36591; 80069; 82728; 83540; 83550; 85014; 85018; A4216; Q5106

== ENCOUNTER → 2022-05-23 | Outpatient (CLI) | payer MEDICARE, OTHER, SELFPAY ==
[2022-05-23 09:15] LABS: Hematocrit 35.9 % (37-47); Hemoglobin 11.3 g/dL (12.0-15.0)
[2022-05-23 09:28] LABS: Albumin, Serum 3.4 g/dL (3.2-5.0); BUN 51 mg/dL (7-18); BUN/Creat Ratio 23.4 RATIO (10-20); Chloride 104 mmol/L (98-107); Creatinine, Serum 2.18 mg/dL (0.55-1.02); EST Glomerular Filtration Rate 23 mL/min (>60); Est Glom Filt Rate - Afr Amer 28 mL/min (>60); Glucose 217 mg/dL (74-106); Phosphorus 3.4 mg/dL (2.5-4.9); Potassium 4.4 mmol/L (3.5-5.1); Sodium Level 139 mmol/L (136-145)
== END | disposition home or self-care (01) ==
LOC: MEDOUTP 08:51
PROVIDERS: PCP Internal Medicine; Referring Provider Internal Medicine Nephrology; Visit Provider Internal Medicine Nephrology
DX: N18.32 Chronic kidney disease, stage 3b (principal); D63.1 Anemia in chronic kidney disease
CPT/HCPCS: 80069; 85014; 85018

== ENCOUNTER → 2022-06-22 | Outpatient (CLI) | payer MEDICARE, OTHER, SELFPAY ==
[2022-06-22 09:14] LABS: Hematocrit 35.6 % (37-47); Hemoglobin 11.2 g/dL (12.0-15.0)
[2022-06-22 09:37] LABS: Albumin, Serum 3.2 g/dL (3.2-5.0); BUN 49 mg/dL (7-18); BUN/Creat Ratio 20.3 RATIO (10-20); Calcium,Total 9.7 mg/dL (8.5-10.1); Chloride 101 mmol/L (98-107); Creatinine, Serum 2.41 mg/dL (0.55-1.02); EST Glomerular Filtration Rate 21 mL/min (>60); Est Glom Filt Rate - Afr Amer 25 mL/min (>60); Glucose 175 mg/dL (74-106); Potassium 4.2 mmol/L (3.5-5.1); Sodium Level 138 mmol/L (136-145)
== END | disposition home or self-care (01) ==
LOC: MEDOUTP 08:51
PROVIDERS: PCP Internal Medicine; Referring Provider Internal Medicine Nephrology; Visit Provider Internal Medicine Nephrology
DX: N18.32 Chronic kidney disease, stage 3b (principal); D63.1 Anemia in chronic kidney disease
CPT/HCPCS: 36591; 80069; 85014; 85018; A4216

== ENCOUNTER 2022-07-20 08:52 | Outpatient (CLI) | payer MEDICARE, OTHER, SELFPAY ==
[2022-07-20 09:14] LABS: Hematocrit 36.1 % (37-47); Hemoglobin 11.6 g/dL (12.0-15.0)
[2022-07-20 09:35] LABS: Albumin, Serum 3.1 g/dL (3.2-5.0); BUN 54 mg/dL (7-18); BUN/Creat Ratio 21.9 RATIO (10-20); Calcium,Total 10.5 mg/dL (8.5-10.1); Chloride 101 mmol/L (98-107); Creatinine, Serum 2.47 mg/dL (0.55-1.02); EST Glomerular Filtration Rate 20 mL/min (>60); Est Glom Filt Rate - Afr Amer 24 mL/min (>60); Ferritin 79 ng/mL (8-252); Glucose 313 mg/dL (74-106); Iron 73 ug/dL (50-170); Iron Binding Capacity,Total 307 ug/dL (250-450); PERCENT IRON SATURATION 23.8 % (15.0-55.0); Phosphorus 3.4 mg/dL (2.5-4.9); Potassium 4.4 mmol/L (3.5-5.1); Sodium Level 138 mmol/L (136-145)
== END 2022-07-20 08:53 | disposition home or self-care (01) ==
LOC: MEDOUTP 08:52
PROVIDERS: PCP Internal Medicine; Referring Provider Internal Medicine Nephrology; Visit Provider Internal Medicine Nephrology
DX: N18.32 Chronic kidney disease, stage 3b (principal); D63.1 Anemia in chronic kidney disease
CPT/HCPCS: 36430; 80069; 82728; 83540; 83550; 85014; 85018; 96523; A4216

== ENCOUNTER 2022-08-15 08:53 | Outpatient (CLI) | payer MEDICARE, OTHER, SELFPAY ==
[2022-08-15 09:25] LABS: Hematocrit 36.6 % (37-47); Hemoglobin 12.1 g/dL (12.0-15.0)
[2022-08-15 09:40] LABS: Albumin, Serum 3.3 g/dL (3.2-5.0); BUN 40 mg/dL (7-18); BUN/Creat Ratio 16.6 RATIO (10-20); Calcium,Total 10.4 mg/dL (8.5-10.1); Chloride 102 mmol/L (98-107); Creatinine, Serum 2.41 mg/dL (0.55-1.02); EST Glomerular Filtration Rate 21 mL/min (>60); Est Glom Filt Rate - Afr Amer 25 mL/min (>60); Glucose 238 mg/dL (74-106); Phosphorus 2.6 mg/dL (2.5-4.9); Potassium 4.3 mmol/L (3.5-5.1); Sodium Level 136 mmol/L (136-145)
[2022-08-15 10:00] LABS: Hemoglobin A1c 11.6 % (3.8-5.6)
== END 2022-08-15 08:54 | disposition home or self-care (01) ==
LOC: MEDOUTP 08:54
PROVIDERS: Nurse Practitioner; PCP Internal Medicine; Referring Provider Internal Medicine Nephrology; Visit Provider Internal Medicine Nephrology
DX: N18.32 Chronic kidney disease, stage 3b (principal); E11.22 Type 2 diabetes mellitus with diabetic chronic kidney disease; Z79.4 Long term (current) use of insulin; D63.1 Anemia in chronic kidney disease
CPT/HCPCS: 36591; 80069; 83036; 85014; 85018; A4216

== ENCOUNTER 2022-09-14 09:21 | Outpatient (CLI) | payer MEDICARE, OTHER, SELFPAY ==
[2022-09-14 10:28] LABS: Albumin, Serum 3.4 g/dL (3.2-5.0); BUN 53 mg/dL (7-18); BUN/Creat Ratio 21.1 RATIO (10-20); Calcium,Total 10.3 mg/dL (8.5-10.1); Chloride 101 mmol/L (98-107); Creatinine, Serum 2.51 mg/dL (0.55-1.02); EST Glomerular Filtration Rate 20 mL/min (>60); Est Glom Filt Rate - Afr Amer 24 mL/min (>60); Glucose 267 mg/dL (74-106); Potassium 4.5 mmol/L (3.5-5.1); Sodium Level 134 mmol/L (136-145)
[2022-09-14 11:10] LABS: Hematocrit 36.3 % (37-47)
== END 2022-09-14 09:22 | disposition home or self-care (01) ==
LOC: MEDOUTP 09:21
PROVIDERS: PCP Internal Medicine; Referring Provider Internal Medicine Nephrology; Visit Provider Internal Medicine Nephrology
DX: N18.32 Chronic kidney disease, stage 3b (principal); D63.1 Anemia in chronic kidney disease
CPT/HCPCS: 36591; 80069; 85014; 85018

== ENCOUNTER 2022-09-14 09:23 | Outpatient (CLI) | payer MEDICARE, OTHER, SELFPAY | END 2022-09-14 09:24 | disposition home or self-care (01) | LOC: MEDOUTP 09:23 | PROVIDERS: PCP Internal Medicine; Referring Provider Internal Medicine Nephrology; Visit Provider Internal Medicine Nephrology | DX: Z00.00 Encounter for general adult medical examination without abnormal findings (principal) ==

== ENCOUNTER 2022-10-12 08:56 | Outpatient (CLI) | payer MEDICARE, OTHER, SELFPAY ==
[2022-10-12 09:49] LABS: Hematocrit 33.7 % (37-47); Hemoglobin 11.1 g/dL (12.0-15.0); Mean Corp Hgb Conc 32.9 g/dL (32-36); Mean Corpuscular Hgb 32.3 pg (27.0-32.0); Mean Platelet Vol. 9.6 fl (6.2-12.0); Platelet Count 151 K/mm3 (150-450); RBC Distribution Width CV 13.7 % (11.6-14.6); RBC Distribution Width SD 48.8 fl (35.1-43.9); Red Blood Count 3.44 M/mm3 (4.2-5.4); White Blood Count 7.4 K/mm3 (4.4-11.0)
[2022-10-12 10:03] LABS: PTHIN 16.9 pg/mL (18.4-80.1)
[2022-10-12 10:07] LABS: Albumin, Serum 3.2 g/dL (3.2-5.0); BUN 49 mg/dL (7-18); BUN/Creat Ratio 19.1 RATIO (10-20); Calcium,Total 10.5 mg/dL (8.5-10.1); Chloride 98 mmol/L (98-107); Creatinine, Serum 2.56 mg/dL (0.55-1.02); EST Glomerular Filtration Rate 19 mL/min (>60); Est Glom Filt Rate - Afr Amer 23 mL/min (>60); Ferritin 125 ng/mL (8-252); Glucose 181 mg/dL (74-106); Iron 89 ug/dL (50-170); Iron Binding Capacity,Total 285 ug/dL (250-450); PERCENT IRON SATURATION 31.2 % (15.0-55.0); Phosphorus 3.8 mg/dL (2.5-4.9); Potassium 4.2 mmol/L (3.5-5.1); Sodium Level 135 mmol/L (136-145); Vitamin D,25 Hydroxy 37.7 ng/mL
[2022-10-12 10:18] LABS: Protein, Urine (Random) 16.5 mg/dL (<11.9); Protein:Creat Ratio 596 mg/g CRE (0-200)
== END 2022-10-12 08:57 | disposition home or self-care (01) ==
LOC: MEDOUTP 08:56
PROVIDERS: PCP Internal Medicine; Referring Provider Internal Medicine Nephrology; Visit Provider Internal Medicine Nephrology
DX: N18.32 Chronic kidney disease, stage 3b (principal); N25.81 Secondary hyperparathyroidism of renal origin; D63.1 Anemia in chronic kidney disease; R80.9 Proteinuria, unspecified
CPT/HCPCS: 36415; 80069; 82306; 82570; 82728; 83540; 83550; 83970; 84156; 85027

== ENCOUNTER 2022-11-07 08:39 | Outpatient (CLI) | payer MEDICARE, OTHER, SELFPAY ==
[2022-11-07 08:55] LABS: Hematocrit 35.5 % (37-47); Hemoglobin 11.7 g/dL (12.0-15.0)
[2022-11-07 09:06] LABS: Albumin, Serum 3.3 g/dL (3.2-5.0); BUN 39 mg/dL (7-18); Calcium,Total 9.7 mg/dL (8.5-10.1); Chloride 104 mmol/L (98-107); Creatinine, Serum 2.29 mg/dL (0.55-1.02); EST Glomerular Filtration Rate 22 mL/min (>60); Est Glom Filt Rate - Afr Amer 27 mL/min (>60); Glucose 184 mg/dL (74-106); Sodium Level 138 mmol/L (136-145)
== END 2022-11-07 08:40 | disposition home or self-care (01) ==
LOC: MEDOUTP 08:39
PROVIDERS: PCP Internal Medicine; Referring Provider Internal Medicine Nephrology; Visit Provider Internal Medicine Nephrology
DX: N18.32 Chronic kidney disease, stage 3b (principal); D63.1 Anemia in chronic kidney disease
CPT/HCPCS: 36415; 80069; 85014; 85018

== ENCOUNTER 2022-12-07 08:46 | Outpatient (CLI) | payer MEDICARE, OTHER, SELFPAY ==
[2022-12-07 09:09] LABS: Hematocrit 35.4 % (37-47); Hemoglobin 11.7 g/dL (12.0-15.0)
[2022-12-07 09:24] LABS: Albumin, Serum 3.3 g/dL (3.2-5.0); BUN 37 mg/dL (7-18); BUN/Creat Ratio 16.1 RATIO (10-20); Calcium,Total 9.6 mg/dL (8.5-10.1); Chloride 108 mmol/L (98-107); EST Glomerular Filtration Rate 22 mL/min (>60); Est Glom Filt Rate - Afr Amer 26 mL/min (>60); Glucose 179 mg/dL (74-106); Phosphorus 2.2 mg/dL (2.5-4.9); Potassium 4.4 mmol/L (3.5-5.1); Sodium Level 138 mmol/L (136-145)
== END 2022-12-07 08:47 | disposition home or self-care (01) ==
LOC: MEDOUTP 08:47
PROVIDERS: PCP Internal Medicine; Referring Provider Internal Medicine Nephrology; Visit Provider Internal Medicine Nephrology
DX: N18.32 Chronic kidney disease, stage 3b (principal); D63.1 Anemia in chronic kidney disease
CPT/HCPCS: 36415; 80069; 85014; 85018

== ENCOUNTER 2023-01-04 08:51 | Outpatient (CLI) | payer MEDICARE, OTHER, SELFPAY ==
[2023-01-04 09:24] LABS: Hematocrit 36.9 % (37-47); Hemoglobin 12.1 g/dL (12.0-15.0)
[2023-01-04 09:34] LABS: Albumin, Serum 3.2 g/dL (3.2-5.0); BUN 46 mg/dL (7-18); BUN/Creat Ratio 18.7 RATIO (10-20); Calcium,Total 9.3 mg/dL (8.5-10.1); Chloride 101 mmol/L (98-107); Creatinine, Serum 2.46 mg/dL (0.55-1.02); EST Glomerular Filtration Rate 20 mL/min (>60); Est Glom Filt Rate - Afr Amer 24 mL/min (>60); Glucose 274 mg/dL (74-106); Iron 93 ug/dL (50-170); Iron Binding Capacity,Total 290 ug/dL (250-450); Phosphorus 3.7 mg/dL (2.5-4.9); Potassium 4.1 mmol/L (3.5-5.1); Sodium Level 137 mmol/L (136-145)
[2023-01-04 16:59] LABS: Xtra Tube EP Lab EXTRA TUBE
== END 2023-01-04 08:52 | disposition home or self-care (01) ==
LOC: MEDOUTP 08:51
PROVIDERS: PCP Internal Medicine; Referring Provider Internal Medicine Nephrology; Visit Provider Internal Medicine Nephrology
DX: N18.32 Chronic kidney disease, stage 3b (principal); D63.1 Anemia in chronic kidney disease
CPT/HCPCS: 36415; 80069; 83540; 83550; 85014; 85018

== ENCOUNTER 2023-01-30 08:57 | Outpatient (CLI) | payer MEDICARE, OTHER, SELFPAY ==
[2023-01-30 09:34] LABS: Hematocrit 38.6 % (37-47); Hemoglobin 12.5 g/dL (12.0-15.0)
[2023-01-30 09:47] LABS: Albumin, Serum 3.6 g/dL (3.2-5.0); BUN 47 mg/dL (7-18); BUN/Creat Ratio 20.4 RATIO (10-20); Chloride 103 mmol/L (98-107); EST Glomerular Filtration Rate 22 mL/min (>60); Est Glom Filt Rate - Afr Amer 26 mL/min (>60); Glucose 144 mg/dL (74-106); Iron 75 ug/dL (50-170); Potassium 4.2 mmol/L (3.5-5.1); Sodium Level 136 mmol/L (136-145)
== END 2023-01-30 08:58 | disposition home or self-care (01) ==
LOC: MEDOUTP 08:57
PROVIDERS: PCP Internal Medicine; Referring Provider Internal Medicine Nephrology; Visit Provider Internal Medicine Nephrology
DX: N18.32 Chronic kidney disease, stage 3b (principal); D63.1 Anemia in chronic kidney disease
CPT/HCPCS: 36415; 80069; 83540; 85014; 85018

== ENCOUNTER 2023-03-01 08:54 | Outpatient (CLI) | payer MEDICARE, OTHER, SELFPAY ==
[2023-03-01 09:20] LABS: Hematocrit 34.9 % (37-47); Hemoglobin 11.6 g/dL (12.0-15.0)
[2023-03-01 09:33] LABS: Albumin, Serum 3.3 g/dL (3.2-5.0); BUN 42 mg/dL (7-18); BUN/Creat Ratio 19.8 RATIO (10-20); Calcium,Total 9.8 mg/dL (8.5-10.1); Chloride 103 mmol/L (98-107); Creatinine, Serum 2.12 mg/dL (0.55-1.02); EST Glomerular Filtration Rate 24 mL/min (>60); Est Glom Filt Rate - Afr Amer 29 mL/min (>60); Glucose 150 mg/dL (74-106); Phosphorus 2.9 mg/dL (2.5-4.9); Potassium 4.4 mmol/L (3.5-5.1); Sodium Level 136 mmol/L (136-145)
== END 2023-03-01 08:55 | disposition home or self-care (01) ==
LOC: MEDOUTP 08:54
PROVIDERS: PCP Internal Medicine; Referring Provider Internal Medicine Nephrology; Visit Provider Internal Medicine Nephrology
DX: N18.32 Chronic kidney disease, stage 3b (principal); D63.1 Anemia in chronic kidney disease
CPT/HCPCS: 36415; 80069; 85014; 85018

== ENCOUNTER 2023-03-29 09:03 | Outpatient (CLI) | payer MEDICARE, OTHER, SELFPAY ==
[2023-03-29 09:36] LABS: Hematocrit 36.9 % (37-47); Hemoglobin 11.6 g/dL (12.0-15.0); Mean Corp Hgb Conc 31.4 g/dL (32-36); Mean Corpuscular Hgb 31.6 pg (27.0-32.0); Mean Corpuscular Volume 100.5 fL (81-99); Mean Platelet Vol. 9.2 fl (6.2-12.0); Platelet Count 189 K/mm3 (150-450); RBC Distribution Width CV 13.4 % (11.6-14.6); RBC Distribution Width SD 49.8 fl (35.1-43.9); Red Blood Count 3.67 M/mm3 (4.2-5.4); White Blood Count 7.9 K/mm3 (4.4-11.0)
[2023-03-29 09:56] LABS: Protein, Urine (Random) 68.5 mg/dL (<11.9); Protein:Creat Ratio 581 mg/g CRE (0-200)
[2023-03-29 09:57] LABS: Albumin, Serum 3.4 g/dL (3.2-5.0); BUN 40 mg/dL (7-18); Calcium,Total 10.3 mg/dL (8.5-10.1); Chloride 105 mmol/L (98-107); Creatinine, Serum 2.35 mg/dL (0.55-1.02); EST Glomerular Filtration Rate 21 mL/min (>60); Est Glom Filt Rate - Afr Amer 26 mL/min (>60); Ferritin 94 ng/mL (8-252); Glucose 230 mg/dL (74-106); Iron 75 ug/dL (50-170); Iron Binding Capacity,Total 280 ug/dL (250-450); PERCENT IRON SATURATION 26.8 % (15.0-55.0); Phosphorus 2.9 mg/dL (2.5-4.9); Sodium Level 138 mmol/L (136-145); Vitamin D,25 Hydroxy 37.1 ng/mL
[2023-03-29 10:08] LABS: PTHIN 53.8 pg/mL (18.4-80.1)
== END 2023-03-29 09:04 | disposition home or self-care (01) ==
LOC: MEDOUTP 09:06
PROVIDERS: PCP Internal Medicine; Referring Provider Internal Medicine Nephrology; Visit Provider Internal Medicine Nephrology
DX: N18.32 Chronic kidney disease, stage 3b (principal); N25.81 Secondary hyperparathyroidism of renal origin; D63.1 Anemia in chronic kidney disease; R80.9 Proteinuria, unspecified
CPT/HCPCS: 36415; 80069; 82306; 82570; 82728; 83540; 83550; 83970; 84156; 85027

== ENCOUNTER 2023-04-24 09:45 | Outpatient (CLI) | payer MEDICARE, OTHER, SELFPAY ==
[2023-04-24 10:08] LABS: Hematocrit 33.3 % (37-47); Hemoglobin 10.7 g/dL (12.0-15.0)
[2023-04-24 10:22] LABS: Albumin, Serum 3.2 g/dL (3.2-5.0); BUN 33 mg/dL (7-18); BUN/Creat Ratio 16.3 RATIO (10-20); Calcium,Total 9.3 mg/dL (8.5-10.1); Chloride 105 mmol/L (98-107); Creatinine, Serum 2.03 mg/dL (0.55-1.02); EST Glomerular Filtration Rate 25 mL/min (>60); Est Glom Filt Rate - Afr Amer 30 mL/min (>60); Glucose 130 mg/dL (74-106); Phosphorus 3.3 mg/dL (2.5-4.9); Potassium 4.1 mmol/L (3.5-5.1); Sodium Level 136 mmol/L (136-145)
[2023-04-24 18:03] LABS: Xtra Tube EP Lab EXTRA TUBE
== END 2023-04-24 09:46 | disposition home or self-care (01) ==
LOC: MEDOUTP 09:45
PROVIDERS: PCP Internal Medicine; Referring Provider Internal Medicine Nephrology; Visit Provider Internal Medicine Nephrology
DX: N18.32 Chronic kidney disease, stage 3b (principal); D63.1 Anemia in chronic kidney disease
CPT/HCPCS: 36415; 80069; 85014; 85018

== ENCOUNTER 2023-05-24 08:46 | Outpatient (CLI) | payer MEDICARE, OTHER, SELFPAY ==
[2023-05-24 09:04] LABS: Hematocrit 34.1 % (37-47); Hemoglobin 10.8 g/dL (12.0-15.0)
--- OUTSIDE RECORDS SUMMARY | 2023-05-24 09:13 | XMS RPT_ITS | CCD ---
Author Name Unknown Address [address] [place] [address] Organization [facility] Care Team Providers Care Barrel Straightener Name Role Phone Gregory Villanueva Unavailable Anum Tan Unavailable Unavailable Unavailable Unavailable Unavailable Primary Care Provider Unavailabl e Bandar, Itri A Admitting Unavailable Bandar, Itri A Attending Unavailable Bandar, Itri A Admitting Unavailable Bandar, Itri A Attending Unavailable Gahlawat, Bernadette Attending Unavailable Gahlawat, Bernadette Admitting Unavailable No Doctor Assigned, Nodr Primary Care Unavail able Anum Tan Unavailable Anum Tan Unavailable Anum Tan Unavailable Unavailable Primary Care Provider UnavailNeel Mendez MD Primary Care Provider Neel Turpin MD Primary Care Provider MD Issa Bonilla Attending Provider Neel Turpin Unavailable Ebenezer Lopez Unavailable Isidro Lloyd Unavailable Tamika Jennings Unavailable Unavailable Tavallaee, Issa Admitting Unavailable Camie, Issa Attending Unavailable NON STAFF Primary Care Unavailable CamieMeIssa Attending Unavailable Deniallalonsoe Issa Admitting Unavailable Neel Turpin MD Primary Care Provider [phone] Neel Turpin Unavailable Unavailable Unavailable Michaela, Dr. Perez Attending Unavailable Hernandez, Dr. Neel Ordonez Primary Care Unavailable Paula Walter Attending Unavailable Hernandez, Dr. Neel Ordonez Primary Care Unavailable Hernandez, Dr. Neel Ordonez Primary Care Unavailable John, Dr. Ebenezer Rosen Admitting Unavaila ble John, Dr. Ebenezer Rosen Referring Unavaila ble Bolaños, Dr. Sorin Shankar Attending Unavaila ble Hernandez, Dr. Neel Ordonez Primary Care Unavailable Michaela, Dr. Perez Referring Unavailable Michaela, Dr. Perez Attending Unavailable Hernandez, Dr. Neel Ordonez Primary Care Unavailable Claus Browne Attending Unavailable Michaela, Dr. Perez Attending Unavailable Hernandez, Dr. Neel Ordonez Primary Care Unavailable Hernandez, Dr. Neel Ordonez Primary Care Unavailable Michaela, Dr. Perez Attending Unavailable Michaela, Dr. Perez Attending Unavailable Hernandez, Dr. Neel Ordonez Primary Care Unavailable Hernandez, Dr. Neel Ordonez Primary Care Unavailable Michaela, Dr. Perez Attending Unavailable Hernandez, Dr. Neel Ordonez Primary Care Unavailable Michaela, Dr. Perez Attending Unavailable Michaela, Dr. Perez Attending Unavailable Hernandez, Dr. Neel Ordonez Primary Care Unavailable Neel Turpin MD Primary Care Provider Jhonatan, Dr. Devlin Attending Unavailable Jhonatan, Dr. Devlin Referring Unavailable Hernandez, Dr. Neel Ordonez Primary Care Unavailable Jhonatan, Dr. Devlin Admitting Unavailable Ramicone, Dr. Jesus Cortes Attending Unavailabl e Hernandez, Dr. Neel Ordonez Primary Care Unavailable Carlycasio [facility], Tessa Unavailable TAMIKA JENNINGS Attending Unavailable NEEL TURPIN Primary Care Unavailable PAULA WALTER Attending Unavailable PAULA WALTER Referring Unavailable NEEL TURPIN Primary Care Unavailable CLAUS BROWNE Referring Unavailable NEEL TURPIN Primary Care Unavailable Hailee NARAYAN, [facility] Unavailable TAMIKA JENNINGS Referring Unavailable NEEL TURPIN Primary Care Unavailable CLAUS BROWNE Referring Unavailable NEEL TURPIN Primary Care Unavailable NEEL TURPIN H Primary Care Unavailable KACY QUAN Referring Unavailable NEEL TURPIN Primary Care Unavailable KACY QUAN Attending Unavailable NEEL TURPIN H Primary Care Unavailable KADEEMKACY JENSEN Attending Unavailable NEEL TURPIN H Primary Care Unavailable KACY QUAN Attending Unavailable NEEL TURPIN H Primary Care Unavailable NEEL TURPIN Attending Unavailable NEEL TURPIN H Primary Care Unavailable NEEL TURPIN H Primary Care Unavailable NEEL TURPIN H Primary Care Unavailable TAMIKA JENNINGS Attending Unavailable TAMIKA JENNINGS Referring Unavailable Hernandez, Dr. Neel Ordonez Primary Care Unavailable Jose Angel, Dr. Paula Douglas Attending Tony Walter, Dr. Paula Douglas Referring Tony Turpin, Dr. Neel Ordonez Primary Care Unavailable Jose Angel, Dr. Paula Douglas Attending Tony Walter, Dr. Paula Douglas Referring Tony Turpin, Dr. Neel Ordonez Primary Care Unavailable Gabino, Dr. Isidro Rogers Attending Unavail able Gabino, Dr. Isidro Rogers Referring Unavail able Hernandez, Dr. Neel Ordonez Primary Care Unavailable Claus Browne Referring Unavailable MICHAELA, TAMIKA Attending Unavailable Hernandez, Dr. Neel Ordonez Primary Care Unavailable Claus Browne Attending Unavailable MICHAELA, TAMIKA Referring Unavailable Hernandez, Dr. Neel Ordonez Primary Care Unavailable Allergies Allergy Classification Reported Allergen(s) Allergy Type Date of Onset Reaction(s) Facility (19 sources) Sulfonamides (Antibiotic); Translations: [sulfa] drug allergy [facility] Work Phone: (20 sources) levoFLOXacin; Translations: [Levaquin TABS] Drug Allergy 12-30-19 05 [facility] Work Phone: (20 sources) Seasonal allergy; Translations: [SEASONAL ALLERGIES] Allergy to substance 08-20-19 15 Other: See Comments [facility] (20 sources) Sulfonamides (Antibiotic); Translations: [SULFA (SULFONAMIDE ANTIBIOTICS)] Propensity to adverse reactions 12-30-19 05 [facility] Work Phone: (1 source) Sulfacetamide Drug Allergy [facility] (2 sources) levoFLOXacin; Translations: [Levaquin TABS] Drug Allergy [facility] [address] Work Phone: (9 sources) Sulfacetamide; Translations: [SULFACETAMIDE SODIUM] Drug Allergy 11-26-19 23 [facility] Work Phone: Medications Current Medications Medication Drug Class(es) Dates Sig (Normalized) Sig (Original) acetaminophen 325 mg oral tablet (2 sources) End: 12-28-2022 take 2 tablets by mouth every eight hours as needed acetaminophen (TylenoL) 325 mg tablet Take 2 tablets (650 mg) by mouth every 8 hours if needed (PAIN). 0 12/28/2022 Discontinued (Other) albuterol 0.83 mg/ml inhalation solution (2 sources) beta2-Adrenergic Agonist End: 12-28-2022 take 3 mL by inhalation every four hours as needed albuterol 2.5 mg /3 mL (0.083 %) nebulizer solution Inhale 3 mL every 4 hours if needed for shortness of breath. 0 12/28/2022 Discontinued (Other) amoxicillin 500 mg oral capsule (2 sources) Penicillin-class Antibacterial End: 12-28-2022 take 1 capsule by mouth twice daily amoxicillin (Amoxil) 500 mg capsule Take 1 capsule (500 mg) by mouth twice a day. 0 12/28/2022 Discontinued (Therapy completed) clotrimazole 10 mg/ml topical cream (20 sources) Azole Antifungal Start: 10-19-2019 End: 08-15-2022 clotrimazole (LOTRIMIN, CLOTRIM) 1 % cream Completed/Discontinued Medications Medication Drug Class(es) Dates Sig (Normalized) Sig (Original) ascorbic acid 226 mg / cuprous oxide 0.8 mg / dl-alpha tocopheryl acetate 200 unt / lutein 5 mg / zinc oxide 34.8 mg oral capsule (20 sources) Vitamin C Start: 08-10-2020 take 1 capsule by mouth once daily Vit C-Vit D-Nhtval-BrOg-Lute in (PRESERVISION LUTEIN) 226 mg-200 unit -5 mg-0.8 mg cap Take 1 capsule by mouth once daily. 0 08/10/2020 Active Problems Active Problems Problem Classification Problem Date Documented Date Episodic/Chronic Anxiety disorders (1 source) Anxiety disorder, unspecified; Translations: [Anxiety disorder, unspecified] Onset: 2 Chronic Cardiac dysrhythmias (3 sources) Paroxysmal ventricular tachycardia; Translations: [Paroxysmal ventricular tachycardia (CMS/HCC)] 04-17-2023 Chronic Cataract (20 sources) Bilateral pseudophakia; Translations: [Presence of intraocular lens] Onset: 7 01-27-2019 Chronic Chronic kidney disease (20 sources) Chronic kidney disease stage 4; Translations: [Chronic kidney disease, stage 4 (severe)] Onset: 0 06-17-2017 Chronic Chronic kidney disease (2 sources) Chronic kidney disease; Translations: [Chronic kidney disease, stage 3 unspecified] Onset: 2 Chronic obstructive pulmonary disease and bronchiectasis (12 sources) Obstruction of lower respiratory tract; Translations: [Chronic airway obstruction, not elsewhere classified] Onset: 3 11-25-2022 Chronic Conduction disorders (20 sources) Left bundle branch block; Translations: [Other left bundle branch block] Onset: 3 Chronic Congestive heart failure; nonhypertensive (20 sources) Congestive heart failure; Translations: [Congestive heart failure, unspecified] Onset: 2 01-29-2022 Chronic Deficiency and other anemia (1 source) Anemia in chronic kidney disease; Translations: [Anemia in chronic kidney disease] Onset: 2 Chronic Diabetes mellitus with complications (20 sources) Type 2 diabetes mellitus; Translations: [Type 2 diabetes mellitus with other diabetic kidney complication] Onset: 7 01-03-2015 Chronic Disorders of lipid metabolism (20 sources) Hyperlipidemia; Translations: [Hyperlipidemia, unspecified] Onset: 8 01-12-2015 Chronic Essential hypertension (20 sources) Essential hypertension; Translations: [Essential (primary) hypertension] Onset: 3 01-12-2015 Chronic Hypertension with complications and secondary hypertension (20 sources) Hypertensive heart disease with congestive heart failure; Translations: [Hypertensive heart disease with heart failure] Onset: 2 Chronic Immunizations and screening for infectious disease (1 source) Patient encounter status; Translations: [Encounter for immunization] 01-04-2023 Episodic Malaise and fatigue (1 source) Other fatigue; Translations: [Other fatigue] Onset: 2 Episodic Mood disorders (4 sources) Depressive disorder; Translations: [Depressive disorder] Chronic Mood disorders (1 source) Mood disorders; Translations: [Depression, unspecified] Onset: 2 Osteoarthritis (20 sources) Localized, primary osteoarthritis; Translations: [Degenerative joint disease involving multiple joints] Onset: 7 11-21-2016 Chronic Other aftercare (1 source) Long-term current use of insulin; Translations: [terminal clerk (current) use of insulin] 10-10-2022 Episodic Other and ill-defined heart disease (1 source) Cardiomegaly; Translations: [Cardiomegaly] Onset: 3 Chronic Other connective tissue disease (2 sources) Pain in right lower limb; Translations: [Pain in right leg] Episodic Other connective tissue disease (1 source) Pain in lower limb; Translations: [Pain in right leg] Episodic Other diseases of kidney and ureters (20 sources) Hyperparathyroidism due to renal insufficiency; Translations: [Secondary hyperparathyroidism of renal origin] Onset: 0 08-09-2011 Chronic Other diseases of veins and lymphatics (1 source) Compression of vein; Translations: [Compression of vein] 10-10-2022 Episodic Other endocrine disorders (20 sources) Syndrome of inappropriate vasopressin secretion; Translations: [Syndrome of inappropriate secretion of antidiuretic hormone] Onset: 2 02-22-2022 Chronic Other endocrine disorders (1 source) Syndrome of inappropriate secretion of antidiuretic hormone; Translations: [Syndrome of inappropriate secretion of antidiuretic hormone] Onset: 2 Chronic Other lower respiratory disease (13 sources) Dyspnea; Translations: [Shortness of breath] Episodic Other nervous system disorders (5 sources) Difficulty walking; Translations: [Difficulty in walking, not elsewhere classified] Onset: 8 01-02-2023 Chronic Other nutritional; endocrine; and metabolic disorders (20 sources) Body mass index 40+ - severely obese; Translations: [Morbid (severe) obesity due to excess calories] Onset: 9 07-11-2017 Chronic Other nutritional; endocrine; and metabolic disorders (16 sources) Morbid obesity; Translations: [Morbid obesity] Onset: 3 11-25-2022 Chronic Other nutritional; endocrine; and metabolic disorders (2 sources) Body mass index (BMI) 45.0-49.9, adult; Translations: [Body mass index [BMI] 45.0-49.9, adult] Onset: 2 Chronic Other nutritional; endocrine; and metabolic disorders (2 sources) Morbid (severe) obesity due to excess calories; Translations: [Morbid (severe) obesity due to excess calories] Onset: 2 Chronic Other nutritional; endocrine; and metabolic disorders (1 source) Obesity caused by energy imbalance; Translations: [Morbid (severe) obesity due to excess calories] 10-10-2022 Chronic Other nutritional; endocrine; and metabolic disorders (1 source) Hypoxemia; Translations: [Obesity, unspecified] 04-15-2023 Chronic Other screening for suspected conditions (not mental disorders or infectious disease) (18 sources) Imaging of thorax abnormal; Translations: [Nonspecific (abnormal) findings on radiological and other examination of other intrathoracic organs] Onset: 3 11-25-2022 Chronic Other screening for suspected conditions (not mental disorders or infectious disease) (2 sources) D-dimer above reference range; Translations: [Other specified abnormal findings of blood chemistry] Onset: 2 Episodic Other upper respiratory disease (20 sources) Allergic rhinitis due to animal hair and dander; Translations: [Allergic rhinitis due to animal (cat) (dog) hair and dander] 12-29-2004 Chronic Katherine-; endo-; and myocarditis; cardiomyopathy (except that caused by tuberculosis or sexually transmitted disease) (1 source) Cardiomyopathy, unspecified; Translations: [Cardiomyopathy, unspecified] Onset: 3 Chronic Katherine-; endo-; and myocarditis; cardiomyopathy (except that caused by tuberculosis or sexually transmitted disease) (1 source) Pericardial effusion - noninflammatory; Translations: [Other pericardial effusion (noninflammatory)] 10-10-2022 Episodic Residual codes; unclassified (7 sources) Obstructive sleep apnea syndrome; Translations: [Obstructive sleep apnea (adult)(pediatric)] Onset: 3 01-02-2023 Chronic Residual codes; unclassified (1 source) Left before being seen; Translations: [Procedure and treatment not carried out due to patient leaving prior to being seen by health care provider] 12-07-2022 Episodic Residual codes; unclassified (1 source) Procedure not done; Translations: [Procedure and treatment not carried out for other reasons] 10-15-2022 Episodic Retinal detachments; defects; vascular occlusion; and retinopathy (20 sources) Nonexudative age-related macular degeneration; Translations: [Nonexudative age-related macular degeneration, bilateral, intermediate dry stage] Onset: 7 10-09-2016 Chronic Spondylosis; intervertebral disc disorders; other back problems (20 sources) Degeneration of thoracolumbar intervertebral disc; Translations: [Other intervertebral disc degeneration, thoracolumbar region] Onset: 7 03-25-2019 Chronic Unclassified (1 source) HCAP (healthcare-associated pneumonia) 01-26-2022 Unclassified (1 source) REJI (acute kidney injury) 01-26-2022 Unclassified (1 source) Contact with and (suspected) exposure to COVID-19; Translations: [Contact with and (suspected) exposure to COVID-19] Onset: 2 Unclassified (1 source) Other pericardial effusion (noninflammatory); Translations: [Other pericardial effusion (noninflammatory)] Onset: 3 Unclassified (2 sources) 4 month follow up Onset: 4 Unclassified (2 sources) Other ventricular tachycardia (CMS/HCC); Translations: [Other ventricular tachycardia (CMS/HCC)] Onset: Past or Other Problems Problem Classification Problem Date Documented Da te Episodic/Chronic Acute and unspecified renal failure (4 sources) Injury of kidney; Translations: [Acute kidney failure, unspecified] Onset: 01-29-2022 01-26-2022 Episodic Results Test Name Value Interpretation Reference Range Facil ity Vital Signs Date Time Vital Sign Value Performing Clinician Facility 05-01-2023 10:15-0500 Body temperature 98.1 [degF] Neel Turpin MD Work Phone: [facility] 05-01-2023 10:15-0500 Body weight 119.75 kg Neel Turpin MD Work Phone: [facility] 05-01-2023 10:15-0500 Diastolic blood pressure 68 mm[Hg] Neel Turpin MD Work Phone: [facility] 05-01-2023 10:15-0500 Heart rate 88 /min Neel Turpin MD Work Phone: [facility] 05-01-2023 10:15-0500 Respiratory rate 16 /min Neel Turpin MD Work Phone: [facility] 05-01-2023 10:15-0500 Systolic blood pressure 118 mm[Hg] Neel Turpin MD Work Phone: [facility] 04-15-2023 11:17-0500 Body height 160 cm Paula Walter DO Work Phone: [facility] 04-15-2023 11:17-0500 Body mass index (BMI) [Ratio] 45.7 kg/m2 Paula Walter DO Work Phone: [facility] 04-15-2023 11:17-0500 Body temperature 96.8 [degF] Paula Walter DO Work Phone: [facility] 04-15-2023 11:17-0500 Body weight 117.03 kg Paula Walter DO Work Phone: [facility] 04-15-2023 11:17-0500 Diastolic blood pressure 68 mm[Hg] Paula Robledocki DO Work Phone: [facility] 04-15-2023 11:17-0500 Heart rate 100 /min Paula Tajasecki DO Work Phone: [facility] 04-15-2023 11:17-0500 SaO2% (BldA) [Mass fraction] 95 % Paula Vangasecki DO Work Phone: [facility] 04-15-2023 11:17-0500 Systolic blood pressure 130 mm[Hg] Paula Piasecki DO Work Phone: [facility] 01-04-2023 10:21-0400 Diastolic blood pressure 66 mm[Hg] Kacy Older RETAIL FIELD SUPERVISOR.OIL WELL SHOOTER Work Phone: [facility] 01-04-2023 10:21-0400 Heart rate 96 /min Kacy Older RETAIL FIELD SUPERVISOR.OIL WELL SHOOTER Work Phone: [facility] 01-04-2023 10:21-0400 Respiratory rate 18 /min Kacy Older RETAIL FIELD SUPERVISOR.OIL WELL SHOOTER Work Phone: [facility] 01-04-2023 10:21-0400 SaO2% (BldA) [Mass fraction] 92 % Kacy Older RETAIL FIELD SUPERVISOR.OIL WELL SHOOTER Work Phone: [facility] 01-04-2023 10:21-0400 Systolic blood pressure 106 mm[Hg] Kacy Older RETAIL FIELD SUPERVISOR.OIL WELL SHOOTER Work Phone: [facility] 12-28-2022 12:08-0400 Body height 160 cm Tamika Jennings MD Work Phone: [facility] 12-28-2022 12:08-0400 Body mass index (BMI) [Ratio] 45.08 kg/m2 Tamika Jennings MD Work Phone: [facility] 12-28-2022 12:08-0400 Body weight 115.44 kg Tamika Jennings MD Work Phone: [facility] 12-28-2022 12:08-0400 Diastolic blood pressure 66 mm[Hg] Tamika Jennings MD Work Phone: [facility] 12-28-2022 12:08-0400 Heart rate 89 /min Tamika Jennings MD Work Phone: [facility] 12-28-2022 12:08-0400 SaO2% (BldA) [Mass fraction] 95 % Tamika Jennings MD Work Phone: [facility] 12-28-2022 12:08-0400 Systolic blood pressure 112 mm[Hg] Tamika Jennings MD Work Phone: [facility] 10-11-2022 11:19-0400 Body height 160.02 cm Neel Turpin Work Phone: PN-Tgkqjkshmr-Zbou and [address] Work Phone: 10-11-2022 11:19-0400 Body mass index (BMI) [Ratio] Patient Reason Not Done Neel Turpin Work Phone: WF-Hsrhehpygu-Bwpf and [address] Work Phone: 10-11-2022 11:19-0400 Diastolic blood pressure 86 mm[Hg] Neel Turpin Work Phone: JA-Looslzoswk-Rhlk and [address] Work Phone: 10-11-2022 11:19-0400 Heart rate 95 /min Neel Turpin Work Phone: RO-Erihqvjhng-Zsid and [address] Work Phone: 10-11-2022 11:19-0400 SaO2% (BldA) [Mass fraction] 89 % Neel Turpin Work Phone: CV-Figkbapcwt-Quhx and [address] Work Phone: 10-11-2022 11:19-0400 Systolic blood pressure 118 mm[Hg] Neel D Turpin Work Phone: EM-Elhtycjngq-Ykaq and [facility] [place] Work Phone: 10-03-2022 18:12-0400 Body height 159.9 cm Claus Browne MD Work Phone: [facility] 10-03-2022 18:12-0400 Body mass index (BMI) [Ratio] 46.15 kg/m2 Claus Browne MD Work Phone: [facility] 10-03-2022 18:12-0400 Body weight 118 kg Claus Browne MD Work Phone: [facility] 08-15-2022 08:09-0400 Body weight 120.2 kg Kacy Older RETAIL FIELD SUPERVISOR.OIL WELL SHOOTER Work Phone: [facility] 08-15-2022 08:09-0400 Diastolic blood pressure 74 mm[Hg] Kacy Older RETAIL FIELD SUPERVISOR.OIL WELL SHOOTER Work Phone: [facility] 08-15-2022 08:09-0400 Heart rate 72 /min Kacy Older RETAIL FIELD SUPERVISOR.OIL WELL SHOOTER Work Phone: [facility] 08-15-2022 08:09-0400 Respiratory rate 16 /min Kacy Older RETAIL FIELD SUPERVISOR.OIL WELL SHOOTER Work Phone: [facility] 08-15-2022 08:09-0400 Systolic blood pressure 116 mm[Hg] Kacy Older RETAIL FIELD SUPERVISOR.OIL WELL SHOOTER Work Phone: [facility] 08-07-2022 15:16-0400 Body height 160.02 cm Neel Turpin Work Phone: [facility] Work Phone: 08-07-2022 15:16-0400 Body mass index (BMI) [Ratio] 45.17 kg/m2 Neel Turpin Work Phone: [facility] Work Phone: 05-23-2023 15:16-0400 Body surface area Derived from formula 2.14 m2 Neel Turpin Work Phone: [facility] 3 DO Work Phone: 08-07-2022 15:16-0400 Body weight 115.67 kg Neel Turpin Work Phone: [facility] 3 DO Work Phone: 08-07-2022 15:16-0400 Diastolic blood pressure 62 mm[Hg] Neel Turpin Work Phone: [facility] 3 DO Work Phone: 08-07-2022 15:16-0400 Heart rate 88 /min Neel Turpin Work Phone: [facility] 3 DO Work Phone: 08-07-2022 15:16-0400 SaO2% (BldA) [Mass fraction] 96 % Neel Turpin Work Phone: [facility] 3 DO Work Phone: 08-07-2022 15:16-0400 Systolic blood pressure 86 mm[Hg] Neel Turpin Work Phone: [facility] 3 DO Work Phone: 08-06-2022 11:03-0400 Body height 160.02 cm Neel Turpin Work Phone: [facility] 3 DO Work Phone: 08-06-2022 11:03-0400 Body mass index (BMI) [Ratio] 46.55 kg/m2 Neel Turpin Work Phone: [facility] 3 DO Work Phone: 08-06-2022 11:03-0400 Body surface area Derived from formula 2.17 m2 Neel Turpin Work Phone: [facility] 3 DO Work Phone: 08-06-2022 11:03-0400 Body temperature 97.5 [degF] Neel Turpin Work Phone: [facility] 3 DO Work Phone: 08-06-2022 11:03-0400 Body weight 119.21 kg Neel Turpin Work Phone: [place] [address] DO Work Phone: 08-06-2022 11:03-0400 Diastolic blood pressure 70 mm[Hg] Neel Turpin Work Phone: [facility] 3 DO Work Phone: 08-06-2022 11:03-0400 Heart rate 88 /min Neel Turpin Work Phone: [facility] 3 DO Work Phone: 08-06-2022 11:03-0400 SaO2% (BldA) [Mass fraction] 95 % Neel Turpin Work Phone: [facility] Work Phone: 08-06-2022 11:03-0400 Systolic blood pressure 122 mm[Hg] Neel Turpin Work Phone: [facility] 3 DO Work Phone: 06-27-2022 11:05-0400 Body height 160.02 cm Neel Turpin Work Phone: TT-[address] Work Phone: 06-27-2022 11:05-0400 Body mass index (BMI) [Ratio] 46.97 kg/m2 Neel Reynoso Turpin Work Phone: LZ-Jxpaivjrnc-U[address] and [address] Work Phone: 06-27-2022 11:05-0400 Body surface area Derived from formula 2.18 m2 Neel Edgardo Turpin Work Phone: ID-Ffufrcxbhv-Emth and [address] Work Phone: 06-27-2022 11:05-0400 Body weight 120.26 kg Neel Edgardo JacksonTurpin Work Phone: FR-Tfqspikjgs-Qrrt and [address] Work Phone: 06-27-2022 11:05-0400 Diastolic blood pressure 70 mm[Hg] Neel Reynoso Turpin Work Phone: DX-Qezljxtklp-Yark and [address] Work Phone: 06-27-2022 11:05-0400 Heart rate 76 /min Neel Edgardo Turpin Work Phone: KT-Ugcoiwrvkm-Enbx and [address] Work Phone: 06-27-2022 11:05-0400 SaO2% (BldA) [Mass fraction] 95 % Neel Reynoso Turpin Work Phone: [facility]-[address]ardu-Agf[facility] and [address] Work Phone: 06-27-2022 11:05-0400 Systolic blood pressure 116 mm[Hg] Neel Jacksonquez Work Phone: TG-Mtzkbwdcok-H[address] and [address] Work Phone: 05-22-2022 11:19-0500 Body height 160.02 cm Neel Jacksonquez Work Phone: [facility] [address] DO Work Phone: 05-22-2022 11:19-0500 Body mass index (BMI) [Ratio] 47.44 kg/m2 Neel Turpin Work Phone: -[facility] DO Work Phone: 05-22-2022 11:19-0500 Body surface area Derived from formula 2.19 m2 Neel Turpin Work Phone: -[facility] DO Work Phone: 05-22-2022 11:19-0500 Body temperature 96.9 [degF] Neel Turpin Work Phone: -[facility] DO Work Phone: 05-22-2022 11:19-0500 Body weight 121.47 kg Neel Turpin Work Phone: -[facility] DO Work Phone: 05-22-2022 11:19-0500 Heart rate 106 /min [facility]el Turpin [facility] Work Phone: 05-22-2022 11:19-0500 SaO2% (BldA) [Mass fraction] 94 % Neel Turpin [facility] Phone: [facility] DO Work Phone: 04-27-2022 10:36-0500 Body weight 127.01 kg Neel Turpin MD Work Phone: [facility] 04-27-2022 10:36-0500 Diastolic blood pressure 67 mm[Hg] eNel Turpin MD Work Phone: [facility] 04-27-2022 10:36-0500 Heart rate 86 /min Neel Turpin MD Work Phone: [facility] 04-27-2022 10:36-0500 Respiratory rate 16 /min Neel Turpin MD Work Phone: [facility] 04-27-2022 10:36-0500 SaO2% (BldA) [Mass fraction] 95 % Neel Turpin MD Work Phone: [facility] 04-27-2022 10:36-0500 Systolic blood pressure 109 mm[Hg] Neel Turpin MD Work Phone: [facility] 04-23-2022 11:03-0500 Body height 160.02 cm Neel Turpin Work Phone: [facility] DO Work Phone: 04-23-2022 11:03-0500 Body mass index (BMI) [Ratio] 49.35 kg/m2 Neel Turpin Work Phone: [facility] DO Work Phone: 04-23-2022 11:03-0500 Body surface area Derived from formula 2.23 m2 Neel Turpin Work Phone: -[facility] DO Work Phone: 04-23-2022 11:03-0500 Body temperature 96.8 [degF] Neel Turpin Work Phone: -[facility] DO Work Phone: 04-23-2022 11:03-0500 Body weight 126.37 kg Neel Turpin Work Phone: -[facility] DO Work Phone: 04-23-2022 11:03-0500 Diastolic blood pressure 68 mm[Hg] Neel Turpin Work Phone: -[facility] DO Work Phone: 04-23-2022 11:03-0500 Heart rate 104 /min Neel Turpin Work Phone: -[facility] DO Work Phone: 04-23-2022 11:03-0500 SaO2% (BldA) [Mass fraction] 92 % Neel Turpin [facility] DO Work Phone: 04-23-2022 11:03-0500 Systolic blood pressure 130 mm[Hg] Neel Turpin [facility] Phone: [facility] DO Work Phone: 04-16-2022 13:27-0500 Body temperature 37.0 {degrees_C} Neel Turpin [facility] Phone[facility] [place] [address] [facility] Work Phone: Encounters Encounter Date Encounter Type Care Provider Facility Start: 05-22-2023 ambulatory Annalisa Stephen RN Work Phone: [facility] Start: 05-22-2023 Follow-up encounter Annalisa woodall RN Work Phone: Hospital Clerk Management Procedures Date Procedure Procedure Detail Performing Clinician Start: 05-14-2023 CARDIAC DEVICE CHECK - IN CLINIC TAMIKA JENNINGS Start: 05-14-2023 Basic metabolic 2000 panel - Serum or Plasma TAMIKA JENNINGS Start: 05-14-2023 AMB REFERRAL TO [facility] FAILURE PROGRAM TAMIKA JENNINGS Start: 05-14-2023 Prgrmg eval implanta ble in prsn dual lead dfb Claus Browne MD Work Phone: Start: 05-01-2023 Hemoglobin A1c/Hemoglobin.total in Blood Neel Turpin MD Work Phone: Start: 04-17-2023 CARDIAC DEVICE CHECK CHECK - REMOTE ALERT CLAUS BROWNE Start: 01-04-2023 INFLUENZA VACCINE, P RSV FREE, AGE 65+ YR, HIGH DOSE, QUADRIVALENT (FLUZONE HIGH-DOSE) Kacy Older RETAIL FIELD SUPERVISOR.[employer] WE[employer]ER Work Phone: Start: 01-04-2023 Hemoglobin A1c/Hemoglobin.total in Blood Kacy Older RETAIL FIELD SUPERVISOR.[employer] WELL [employer]ER Work Phone: Start: 12-28-2022 Ecg routine ecg w/le ast 12 lds w/i&r Tamika Jennings MD Work Phone: Start: 10-04-2022 Glucose [Mass/volume ] in Serum or Plasma Claus Browne MD Work Phone: Start: 10-04-2022 Echocardiography Whitne y Florencio Joe RETAIL FIELD SUPERVISOR-[employer] WELL [employer]ER Work Phone: Start: 10-04-2022 CHEST 2 VIEW Caroline Florencio Joe RETAIL FIELD SUPERVISOR-[employer] WELL SHO[employer]ER Work Phone: Start: 10-04-2022 Glucose [Mass/volume ] in Serum or Plasma Claus Browne MD Work Phone: Start: 10-03-2022 Glucose [Mass/volume ] in Serum or Plasma Claus Browne MD Work Phone: Start: 10-03-2022 Glucose [Mass/volume ] in Serum or Plasma Claus Browne MD Work Phone: Start: 10-03-2022 Prothrombin time (PT) S aamir Browne MD Work Phone: Start: 10-03-2022 Glucose [Mass/volume ] in Serum or Plasma Claus Browne MD Work Phone: Start: 08-15-2022 Hemoglobin A1c/Hemoglobin.total in Blood Kacy Berumen RETAIL FIELD SUPERVISOR.[employer] WE[employer]ER Work Phone: Start: 01-26-2022 End: 01-26-2022 EKG impression Sorin Bolaños Start: 08-09-2021 Hemoglobin A1c/Hemoglobin.total in Blood Neel Turpin MD Work Phone: Start: 08-10-2020 Adult depression scr eening assessment Neel Turpin MD Work Phone: Start: 04-14-2018 Urinalysis Itri Ankur Ere n Work Phone: Start: 03-03-2018 End: 03-03-2018 Basic metabolic 2000 panel - Serum or Plasma Meliza Pascual Bandar Work Phone: Start: 03-03-2018 End: 03-03-2018 Complete blood count (hemogram) panel - Blood by Automated count Itrmoshe Portillo Work Phone: Start: 11-07-2016 End: 11-21-2016 Arthrocentesis aspir&/inj small jt/bursa w/o us Gregory Villanueva Work Phone: Start: 11-07-2016 End: 11-21-2016 Drain/inject, joint/bursa Gregory Villanueva Work Phone: Appendectomy Neel hewitt Work Phone: Arthroplasty of knee Neel Turpin Work Phone: Plan of Treatment Date Care Activity Detail Author Start: 05-14-2024 Creatinine measurement Creatinine Le rosa m [facility] Start: 05-14-2024 Potassium measurement Potassium Leve l [facility] Start: 05-01-2024 Annual PCP Team Culinary Internship zach Disease Visit Annual PCP Team Chronic Disease Visit [facility] Start: 05-01-2024 BP Controlled (<130/80) BP Con trolled (<130/80) [facility] Start: 05-01-2024 Covid-19 Vaccine ( season) Covid-19 Vaccine ( season) [facility] Immunizations Immunization Date Immunization Notes Care Provider Solange tipton 01-04-2023 influenza (HD-IIV4) vaccine, age 65+ yr, high dose, quadrivalent, PF (FLUZONE HIGH-DOSE) Kacy Older RETAIL FIELD SUPERVISOR.[employer] WE[employer] SHO[employer]ER Work Phone: [facility] 01-04-2023 influenza virus vacc ine, unspecified formulation Kacy Older RETAIL FIELD SUPERVISOR.[employer] WELL SHO[employer]ER Work Phone: [facility] 12-22-2021 influenza, seasonal, injectable Neel Turpin MD Work Phone: [facility] Work Phone: 12-22-2021 influenza virus vacc ine, unspecified formulation Neel Turpni MD Work Phone: [facility] 11-17-2020 influenza, high-dose , quadrivalent vaccine (FLUZONE HIGH DOSE QUADRIVALENT) Neel Turipn MD Work Phone: [facility] Work Phone: 07-01-2020 COVID-19 vaccine, fu ll dose (MODERNA) Neel Turpin MD Work Phone: [facility] Work Phone: 06-01-2020 COVID-19 vaccine, fu ll dose (MODERNA) Neel Turpin MD Work Phone: [facility] Work Phone: 12-30-2019 zoster vaccine recombinant Neel Turpin MD Work Phone: [facility] Work Phone: 12-02-2019 influenza, high dose seasonal, preservative-free Neel Turpin MD Work Phone: [facility] Work Phone: 12-02-2019 influenza, injectabl e, quadrivalent, preservative free Tamika Jennings MD Work Phone: [facility] Work Phone: 10-07-2019 zoster vaccine recombinant Neel Turpin MD Work Phone: [facility] Work Phone: 12-31-2018 Influenza, injectabl e, Madin [place] Canine Kidney, preservative free, quadrivalent Neel Turpin MD Work Phone: [facility] Work Phone: 12-31-2018 influenza, injectabl e, quadrivalent, contains preservative Neel Turpin MD Work Phone: [facility] Work Phone: 01-27-2018 tetanus immune globulin Vict or Hernandez MIJARES Work Phone: [facility] Work Phone: 01-01-2018 influenza, high dose seasonal, preservative-free Neel Turpin MD Work Phone: [facility] Work Phone: 01-25-2016 influenza, high dose seasonal, preservative-free Neel Turpin MD Work Phone: [facility] 04-06-2015 pneumococcal conjuga te vaccine, 13 valent Neel Turpin MD Work Phone: [facility] 01-12-2015 influenza, high dose seasonal, preservative-free Neel Turpin MD Work Phone: [facility] 12-31-2013 influenza, seasonal, injectable Neel Turpin MD Work Phone: [facility] 12-02-2013 pneumococcal polysaccharide vaccine, 23 valent Neel Turpin MD Work Phone: [facility] 12-29-2012 influenza virus vacc ine, unspecified formulation Neel Turpin MD Work Phone: [facility] 12-24-2012 influenza virus vacc ine, whole virus Neel Turpin MD Work Phone: [facility] Work Phone: 01-16-2012 influenza virus vacc ine, unspecified formulation Neel Turpin MD Work Phone: [facility] Work Phone: 12-09-2008 influenza virus vacc ine, unspecified formulation Neel Turpin MD Work Phone: [facility] 01-09-2008 influenza virus vacc ine, whole virus Neel Turpin MD Work Phone: [facility] Work Phone: 02-15-2001 pneumococcal polysaccharide vaccine, 23 valent Neel Turpin MD Work Phone: [facility] Work Phone: Payers Date Payer Category Payer Self-pay 2021 Private Health Insurance [employer] [id number] 2021-Present [phone] [address] [place] [address] Indemnity [id number] 2021 Private Health Insurance [facility] [id number] 2018 Private Health Insurance 2018 Medicare [id number] 2006 Medicare 2006 Medicare MEDICARE MEDICAR E A AND B [id number] 2006-Present [phone] [place] [address] Medicare [id number] 2006 Medicare [id number] 1945 Unknown [id number] 2.16.840.1.001541.3.579. 2.717 1944 Unknown [id number] 2.16.840.1.540244.3.579. 2.1068 1944 Unknown [id number] 2.16.840.1.041411.3.579. 2.1068 1944 Unknown [id number] 2.16.840.1.969143.3.579. 2.1068 1944 Unknown [id number] 2.16.840.1.422173.3.579. 2.1068 1944 Unknown [id number] 2.16.840.1.889677.3.579. 2.1068 1944 Unknown [id number] 2.16.840.1.814891.3.579. 2.1068 1944 Unknown [id number] 2.16.840.1.246847.3.579. 2.1068 1944 Unknown [id number] 2.16.840.1.260579.3.579. 2.1068 1944 Unknown [id number] 2.16.840.1.108199.3.579. 2.1068 1944 Unknown [id number] 2.16.840.1.192563.3.579. 2.1068 1944 Unknown [id number] 2.16.840.1.249046.3.579. 2.1069 1944 Unknown [id number] 2.16.840.1.043640.3.579. 2.1046 1944 Unknown [id number] 2.16.840.1.629316.3.579. 2.1046 1944 Unknown [id number] 2.16.840.1.683271.3.579. 2.1244 1944 Unknown [id number] 2.16840.1.847970.3.579. 2.1244 1944 Unknown [id number] 2.840.1.394043.3.579. 2.1247 1944 Unknown [id number] 2.840.1.211062.3.579. 2.1243 1944 Unknown [id number] 2.840.1.890971.3.579. 2.1243 1944 Unknown [id number] 2.840.1.952600.3.579. 2.356 1944 Unknown [id number] 2.840.1.394328.3.579. 2.356 1944 Unknown [id number] 2.840.1.634763.3.579. 2.356 1944 Unknown [id number] 2.840.1.233839.3.579. 2.356 1944 Unknown [id number] 2.840.1.900195.3.579. 2.356 1944 Unknown [id number] 2.840.1.360451.3.579. 2.356 Private Health Insurance [id number] Unknown Unknown [id number] 2.16840.1.314814.3.579. 2.531 Unknown [id number] 2.840.1.992868.3.579. 2.531 Social History Date Type Detail Facility Tobacco smoking stat us NHIS Unknown if ever smoked [facility] Start: 1945 Sex Assigned At Not on file [facility] Start: 12-04-2021 End: 12-28-2022 Tobacco smoking status NHIS Never smoked tobacco [facility] Work Phone: Start: 04-05-2021 End: 05-01-2023 Alcohol intake Current non-drinker of alcohol (finding) [facility] Start: 07-30-2021 End: 05-14-2023 Exposure to SARS-CoV-2 (event) Not sure [facility] Work Phone: Start: 12-04-2021 End: 12-28-2022 Tobacco use and exposure Smokeless tobacco non-user [facility] Start: 12-10-2021 End: 12-20-2021 Exposure to SARS-CoV-2 (event) Unable to assess [facility] Work Phone: Start: 1945 Sex Assigned At Female F [facility] Tobacco smoking consumption unknown [facility] Start: 08-15-2022 End: 12-07-2022 No alcohol use No alcohol use [facility] Work Phone: Start: 08-15-2022 End: 12-07-2022 Tobacco use panel [facility] Work Phone: Adult Depression Screening Assessment 4 [facility] Work Phone: History of tobacco use Passive smoker [facility] Work Phone: Start: 12-28-2022 End: 04-15-2023 Alcohol intake Lifetime non-drinker (finding) [facility] Work Phone: (I/We) worried wheth er (my/our) food would run out before (I/we) got money to buy more. Never true [facility] Work Phone: Medical Equipment Procedure Code Equipment Code Equipment Origin al Text Equipment Identifier Dates [id number] Start: 12-27-2006 End: 08-15-2022 Goals Date Patient Goal Desired Activity /State Personal health goal Functional Status Date Assessment Result Facility Functional observable [facility] Mental Status Date Assessment Result Facility 01-29-2022 Cognitive functi ons [id number] [facility] Clinical Notes 10-24-2017 to 05-22-2023 Annalisa Stephen, RN - 05/22/2023 12:21 PM Annalisa Bro RN - 05/15/2023 9:57 AM ESTTelephone Encounter - Tessa Dias RPh - 05/14/2023 4:20 PM ESTPatient Instructions<item><item><item> Note Date & Type Note Facility 05-22-2023 Note HNO ID: [id number] Author: ANNALISA STEPHEN RN Service: ? Author Type: Registered Nurse Type: Progress Notes Filed: 05/22/2023 12:30 Note Text: CDM Care Path Telephonic Outreach Provider Action/FYI Discussed A1C - It might be because of my diet. I don't eat a regular three meals. I sleep through the morning. I get meals on wheels 5 days a week. I try to avoid bread. I have Healthy Choice Steamers sometimes. Yesterday was the highest its (blood sugar) been at 139. They have been adjusting my medication. I started Mounjaro. The pharmacist there has been doing the adjusting. Pt educated that next A1C is due before August 29 Contact made with patient: Yes Patient identified by Name and Date of . Discussed care with patient. Contacted for Chronic Disease Care Path: Diabetes Health maintenance addressed this outreach: HBA1C -- every six (6) months Medication Adherence Education provided this outreach: Blood Sugar Monitoring: Importance of Medication Compliance GOALS Disease specific goals updated: No Patient stated goal(s) updated: No Needs Assessment updated this outreach: No Medications Do you have any questions about taking your medication or which medications you should be taking? No Do you need any medication refills at this time, including any of the medications you might take only when needed? No Social It can be normal to feel anxious or down during a time like this. Would you like to talk to a mental health professional about how you have been feeling? No Care Gaps Addressed this Outreach: No Symptoms Are you experiencing any new or worsening symptoms you need to talk about today? No Based on sales commissions analyst, the following disposition is advised: Other Call Dispositions No action needed Program Disposition Patient dispositioned from Program today: No Annalisa Stephen RN May 22, 2023 12:30 PM Program Disposition Patient dispositioned from Program today: No Annalisa Stephen RN May 22, 2023 12:30 PM [facility] 05-22-2023 Note Patient Outreach (AM [facility]) VAL HERBERT ([id number]) 1945 F Date Time Provider Department 05/22/23 ANNALIAS STEPHEN During your visit today, we recorded the following information about you: Annalisa Stephen RN 05/22/2023 12:30 PM Signed [facility] Care Path Telephonic Outreach Provider Action/FYI Discussed A1C - It might be because of my diet. I don't eat a regular three meals. I sleep through the morning. I get meals on wheels 5 days a week. I try to avoid bread. I have Healthy Choice Steamers sometimes. Yesterday was the highest its (blood sugar) been at 139. They have been adjusting my medication. I started Mounjaro. The pharmacist there has been doing the adjusting. Pt educated that next A1C is due before August 29 Contact made with patient: Yes Patient identified by Name and Date of . Discussed care with patient. Contacted for Chronic Disease Care Path: Diabetes Health maintenance addressed this outreach: HBA1C -- every six (6) months Medication Adherence Education provided this outreach: Blood Sugar Monitoring: Importance of Medication Compliance GOALS Disease specific goals updated: No Patient stated goal(s) updated: No Needs Assessment updated this outreach: No Medications Do you have any questions about taking your medication or which medications you should be taking? No Do you need any medication refills at this time, including any of the medications you might take only when needed? No Social It can be normal to feel anxious or down during a time like this. Would you like to talk to a mental health professional about how you have been feeling? No Care Gaps Addressed this Outreach: No Symptoms Are you experiencing any new or worsening symptoms you need to talk about today? No Based on sales commissions analyst, the following disposition is advised: Other Call Dispositions No action needed Program Disposition Patient dispositioned from Program today: No Annalisa Stephen RN May 22, 2023 12:30 PM Program Disposition Patient dispositioned from Program today: No Annalisa Stephen RN May 22, 2023 12:30 PM Allergies As of Date: 05/22/2023 Noted Allergy Reaction LEVAQUIN (LEVOFLOXACIN) 12/29/2004 Comments: itching,diarrhea,dausea,burning skin SEASONAL ALLERGIES 08/19/2014 14 - Other: See Comments Comments: Sinus SULFA (SULFONAMIDE ANTIBIOTICS) 12/29/2004 Comments: rash and hives Date Reviewed: 05/08/2023 Reviewed by: Tessa Dias [facility] - Fully Assessed Reason for Visit: Community Monitorig Outreach [Other] Cmt: Follow up Prescriptions as of 05/22/2023 - tirzepatide (MOUNJARO) 5 mg/0.5 mL pen injector Inject 5 mg subcutaneously one time a week. - simvastatin (ZOCOR) 40 mg tablet Take 1 tablet by mouth daily at bedtime. For cholesterol. - venlafaxine ER (EFFEXOR XR) 37.5 mg 24 hr capsule Take 1 capsule by mouth once daily. - insulin glargine (LANTUS SOLOSTAR U-100 INSULIN) 100 unit/mL (3 mL) Inject 54 Units subcutaneously daily at bedtime. - hydrALAZINE (APRESOLINE) 25 mg tablet Take 25 mg by mouth three times a day. - gabapentin (NEURONTIN) 300 mg capsule Take 1 capsule by mouth two times a day for 180 days. - furosemide (LASIX) 20 mg tablet Take 1 tablet by mouth once daily. Take an extra 20 mg tablet daily as needed - metoprolol succinate ER (TOPROL XL) 50 mg 24 hr tablet Take 1 tablet by mouth once daily. Per Dr. Yulia Jennings, cardiology. - Insulin Noble, Disposable, 29 gauge x 1/2 Use once daily as directed. Dx E11.29 - pbnmdpmeqfp-fvubhzndd-cetbipkd (TRELEGY ELLIPTA) 100-62.5-25 mcg inhalation powder Inhale 1 Puff as instructed once daily. - docusate sodium (COLACE) 100 mg capsule Take 1 capsule by mouth as needed. - melatonin 5 mg tablet Take 2 tablets by mouth. - senna (SENOKOT) 8.6 mg tab Take 1 tablet by mouth as needed. - Vit C-Vit J-Vqrfur-UjBe-Lutein (PRESERVISION LUTEIN) 226 mg-200 unit -5 mg-0.8 mg cap Take 1 capsule by mouth once daily. - COMPOUNDED PRESCRIPTION Take 1 tablet by mouth twice daily. Plexus Bio-5 (Probiotic) - blood sugar diagnostic (GTFO VenturesTOUCH ULTRA TEST) test strip Test blood sugar(s) 2 times daily. - epoetin zari (PROCRIT,EPOGEN) 10,000 unit/mL injection Inject 10,000 Units subcutaneously q 4 WEEKS. 12,000 Units every two weeks. 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 [facility] 05-22-2023 History of Present illness Narrative [facility] Care Path Telephonic Outreach Provider Action/FYI Discussed A1C - It might be because of my diet. I don't eat a regular three meals. I sleep through the morning. I get meals on wheels 5 days a week. I try to avoid bread. I have Healthy Choice Steamers sometimes. Yesterday was the highest its (blood sugar) been at 139. They have been adjusting my medication. I started Mounjaro. The pharmacist there has been doing the adjusting. Pt educated that next A1C is due before August 29 Contact made with patient: Yes Patient identified by Name and Date of . Discussed care with patient. Contacted for Chronic Disease Care Path: Diabetes Health maintenance addressed this outreach: HBA1C -- every six (6) months Medication Adherence Education provided this outreach: Blood Sugar Monitoring: Importance of Medication Compliance GOALS Disease specific goals updated: No Patient stated goal(s) updated: No Needs Assessment updated this outreach: No Medications Do you have any questions about taking your medication or which medications you should be taking? No Do you need any medication refills at this time, including any of the medications you might take only when needed? No Social It can be normal to feel anxious or down during a time like this. Would you like to talk to a mental health professional about how you have been feeling? No Care Gaps Addressed this Outreach: No Symptoms Are you experiencing any new or worsening symptoms you need to talk about today? No Based on sales commissions analyst, the following disposition is advised: Other Call Dispositions No action needed Program Disposition Patient dispositioned from Program today: No Annalisa Stephen RN May 22, 2023 12:30 PM Program Disposition Patient dispositioned from Program today: No Annalisa Stephen RN May 22, 2023 12:30 PM documented in this encounter [facility] 05-15-2023 Note Patient Outreach ([facility]) VAL HERBERT ([id number]) 1945 F Date Time Provider Department 05/15/23 ANNALISA STEPHEN During your visit today, we recorded the following information about you: Annalisa Stephen RN 05/15/2023 10:01 AM Signed [facility] Care Path Telephonic Outreach Provider Action/FYI I was sleeping. It is better to call after noon because I sleep late in the mornings. I am doing good. Pt denies questions/concerns/needs. Contact made with patient: Yes Patient identified by Name and Date of . Discussed care with patient. Contacted for Chronic Disease Care Path: Diabetes See FYI GOALS Disease specific goals updated: No Patient stated goal(s) updated: No Needs Assessment updated this outreach: No Medications Do you have any questions about taking your medication or which medications you should be taking? No Do you need any medication refills at this time, including any of the medications you might take only when needed? No Social It can be normal to feel anxious or down during a time like this. Would you like to talk to a mental health professional about how you have been feeling? No Care Gaps Addressed this Outreach: No Symptoms Are you experiencing any new or worsening symptoms you need to talk about today? No Based on sales commissions analyst, the following disposition is advised: Other Call Dispositions No action needed Program Disposition Patient dispositioned from Program today: No Annalisa Stephen RN May 15, 2023 10:01 AM Program Disposition Patient dispositioned from Program today: Akanksha Stephen RN May 15, 2023 10:01 AM Allergies As of Date: 05/15/2023 Noted Allergy Reaction LEVAQUIN (LEVOFLOXACIN) 12/29/2004 Comments: itching,diarrhea,dausea,burning skin SEASONAL ALLERGIES 08/19/2014 14 - Other: See Comments Comments: Sinus SULFA (SULFONAMIDE ANTIBIOTICS) 12/29/2004 Comments: rash and hives Date Reviewed: 05/08/2023 Reviewed by: Tessa Dias RPh - Fully Assessed Reason for Visit: Community Monitoring Outreach [Other] Cmt: Follow up Prescriptions as of 05/15/2023 - tirzepatide (MOUNJARO) 5 mg/0.5 mL pen injector Inject 5 mg subcutaneously one time a week. - simvastatin (ZOCOR) 40 mg tablet Take 1 tablet by mouth daily at bedtime. For cholesterol. - venlafaxine ER (EFFEXOR XR) 37.5 mg 24 hr capsule Take 1 capsule by mouth once daily. - insulin glargine (LANTUS SOLOSTAR U-100 INSULIN) 100 unit/mL (3 mL) Inject 54 Units subcutaneously daily at bedtime. - hydrALAZINE (APRESOLINE) 25 mg tablet Take 25 mg by mouth three times a day. - gabapentin (NEURONTIN) 300 mg capsule Take 1 capsule by mouth two times a day for 180 days. - furosemide (LASIX) 20 mg tablet Take 1 tablet by mouth once daily. Take an extra 20 mg tablet daily as needed - metoprolol succinate ER (TOPROL XL) 50 mg 24 hr tablet Take 1 tablet by mouth once daily. Per Dr. Yulia Jennings, cardiology. - Insulin Noble, Disposable, 29 gauge x 1/2 Use once daily as directed. Dx E11.29 - qvqjjydnmgq-yojrddkkb-cxjoxtbs (TRELEGY ELLIPTA) 100-62.5-25 mcg inhalation powder Inhale 1 Puff as instructed once daily. - docusate sodium (COLACE) 100 mg capsule Take 1 capsule by mouth as needed. - melatonin 5 mg tablet Take 2 tablets by mouth. - senna (SENOKOT) 8.6 mg tab Take 1 tablet by mouth as needed. - Vit C-Vit F-Iaeqik-BdRd-Lutein (PRESERVISION LUTEIN) 226 mg-200 unit -5 mg-0.8 mg cap Take 1 capsule by mouth once daily. - COMPOUNDED PRESCRIPTION Take 1 tablet by mouth twice daily. Plexus Bio-5 (Probiotic) - blood sugar diagnostic (GT[employer] VenturesTOUCH ULTRA TEST) test strip Test blood sugar(s) 2 times daily. - epoetin zari (PROCRIT,EPOGEN) 10,000 unit/mL injection Inject 10,000 Units subcutaneously q 4 WEEKS. 12,000 Units every two weeks. 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*12/20/2006 Obesity, Class III, BMI 40-49.9 (morbid obesity*11/09/2008 CKD (chronic kidney disease) stage 4, GFR 15-29*06/17/2009 Anemia [D64.9] 06/17/2009 Incisional hernia [K43.2] 09/22/2009 06/01/2010 Osteopenia [M85.80] 12/15/2009 Esophagitis, unspecified [K20.90] 10/24/2010 08/10/2015 Acute gastritis without mention of hemorrhage [*10/24/2010 08/10/2015 Diaphragmatic hernia without mention of obstruc*10/24/2010 08/10/2015 Macular degeneration [H35.30] 06/06/2011 06/17/2017 Hyperparathyroidism, 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 [facility] 05-15-2023 Note HNO ID: [id number] Author: ANNALISA STEPHEN RN Service: ? Author Type: Registered Nurse Type: Progress Notes Filed: 05/15/2023 10:01 Note Text: [facility] Path Telephonic Outreach Provider Action/FYI I was sleeping. It is better to call after noon because I sleep late in the mornings. I am doing good. Pt denies questions/concerns/needs. Contact made with patient: Yes Patient identified by Name and Date of . Discussed care with patient. Contacted for Chronic Disease Care Path: Diabetes See FY GOALS Disease specific goals updated: No Patient stated goal(s) updated: No Needs Assessment updated this outreach: No Medications Do you have any questions about taking your medication or which medications you should be taking? No Do you need any medication refills at this time, including any of the medications you might take only when needed? No Social It can be normal to feel anxious or down during a time like this. Would you like to talk to a mental health professional about how you have been feeling? No Care Gaps Addressed this Outreach: No Symptoms Are you experiencing any new or worsening symptoms you need to talk about today? No Based on sales commissions analyst, the following disposition is advised: Other Call Dispositions No action needed Program Disposition Patient dispositioned from Program today: No Annalisa Stephen RN May 15, 2023 10:01 AM Program Disposition Patient dispositioned from Program today: No Annalisa Stephen RN May 15, 2023 10:01 AM [facility] 05-15-2023 History of Present illness Narrative [facility] Care Path Telephonic Outreach Provider Action/FYI I was sleeping. It is better to call after noon because I sleep late in the mornings. I am doing good. Pt denies questions/concerns/needs. Contact made with patient: Yes Patient identified by Name and Date of . Discussed care with patient. Contacted for Chronic Disease Care Path: Diabetes See FYI GOALS Disease specific goals updated: No Patient stated goal(s) updated: No Needs Assessment updated this outreach: No Medications Do you have any questions about taking your medication or which medications you should be taking? No Do you need any medication refills at this time, including any of the medications you might take only when needed? No Social It can be normal to feel anxious or down during a time like this. Would you like to talk to a mental health professional about how you have been feeling? No Care Gaps Addressed this Outreach: No Symptoms Are you experiencing any new or worsening symptoms you need to talk about today? No Based on sales commissions analyst, the following disposition is advised: Other Call Dispositions No action needed Program Disposition Patient dispositioned from Program today: No Annalisa Stephen RN May 15, 2023 10:01 AM Program Disposition Patient dispositioned from Program today: No Annalisa Stephen RN May 15, 2023 10:01 AM documented in this encounter [facility] 05-14-2023 Miscellaneous Notes Called and spoke with patient. Patient reports [facility] stated Mounjaro should get to patient within 3-5 days. Patient worried about it not arriving by Saturday when she is due for next dose. Discussed with patient she may take her delayed dose within 4 days of the scheduled day, as long as there are at least 72 hours between doses. Patient verbalized understanding. Patient scheduled for PharmD f/up on 06/05/23. Tessa Dias PharmD Primary Care Clinical Circular Saw Operator Pt states [facility] says they have processed mounjaro however pt states she may not get it in the mail in time for her next dose on Saturday. Pt states she called her local pharmacy & they do not have it avail & pt is not able to travel any farther to go to another pharmacy. Pt called to state she may be a day or so late with next dose. Dhara Zeng LPN documented in this encounter [facility] 05-14-2023 Note Patient Outreach (AM [facility]) VAL HERBERT ([id number]) 1945 F Date Time Provider Department 05/14/23 ANNALISA STEPHEN During your visit today, we recorded the following information about you: Annalisa Stephen RN 05/14/2023 12:12 PM Signed [facility] Care Path Telephonic Outreach Provider Action/FYI Contact made with patient: No, Left message Annalisa Stephen RN May 14, 2023 12:12 PM Allergies As of Date: 05/14/2023 Noted Allergy Reaction LEVAQUIN (LEVOFLOXACIN) 12/29/2004 Comments: itching,diarrhea,dausea,burning skin SEASONAL ALLERGIES 08/19/2014 14 - Other: See Comments Comments: Sinus SULFA (SULFONAMIDE ANTIBIOTICS) 12/29/2004 Comments: rash and hives Date Reviewed: 05/08/2023 Reviewed by: Tessa Dias Former[facility] - Fully Assessed Reason for Visit: Community Monitoring Outreach [Other] Cmt: Follow up Prescriptions as of 05/14/2023 - tirzepatide (MOUNJARO) 5 mg/0.5 mL pen injector Inject 5 mg subcutaneously one time a week. - simvastatin (ZOCOR) 40 mg tablet Take 1 tablet by mouth daily at bedtime. For cholesterol. - venlafaxine ER (EFFEXOR XR) 37.5 mg 24 hr capsule Take 1 capsule by mouth once daily. - insulin glargine (LANTUS SOLOSTAR U-100 INSULIN) 100 unit/mL (3 mL) Inject 54 Units subcutaneously daily at bedtime. - hydrALAZINE (APRESOLINE) 25 mg tablet Take 25 mg by mouth three times a day. - gabapentin (NEURONTIN) 300 mg capsule Take 1 capsule by mouth two times a day for 180 days. - furosemide (LASIX) 20 mg tablet Take 1 tablet by mouth once daily. Take an extra 20 mg tablet daily as needed - metoprolol succinate ER (TOPROL XL) 50 mg 24 hr tablet Take 1 tablet by mouth once daily. Per Dr. Yulia Jennings, cardiology. - Insulin Noble, Disposable, 29 gauge x 1/2 Use once daily as directed. Dx E11.29 - nmsltmitvrk-jhktpcfxl-mwkdqgwz (TRELEGY ELLIPTA) 100-62.5-25 mcg inhalation powder Inhale 1 Puff as instructed once daily. - docusate sodium (COLACE) 100 mg capsule Take 1 capsule by mouth as needed. - melatonin 5 mg tablet Take 2 tablets by mouth. - senna (SENOKOT) 8.6 mg tab Take 1 tablet by mouth as needed. - Vit C-Vit D-Gdceab-VmMp-Lutein (PRESERVISION LUTEIN) 226 mg-200 unit -5 mg-0.8 mg cap Take 1 capsule by mouth once daily. - COMPOUNDED PRESCRIPTION Take 1 tablet by mouth twice daily. Plexus Bio-5 (Probiotic) - blood sugar diagnostic (ONETOUCH ULTRA TEST) test strip Test blood sugar(s) 2 times daily. - epoetin zari (PROCRIT,EPOGEN) 10,000 unit/mL injection Inject 10,000 Units subcutaneously q 4 WEEKS. 12,000 Units every two weeks. - Lancets (FREESTYLE LANCETS) Misc Misc Test twice daily 250.02 Problem List As Of Date 05/14/2023 Noted Resolved Essential hypertension [I10] Generalized osteoarthritis [M15.9] ALLERGIC RHINITIS D/T ANIMAL [J30.81] Hyperlipemia [E78.5] Acute bronchitis [J20.9] 06/01/2010 Chest pain, unspecified [R07.9] 06/01/2010 Cough [R05.9] 06/01/2010 Type II diabetes mellitus with renal manifestat*12/20/2006 Obesity, Class III, BMI 40-49.9 (morbid obesity*11/09/2008 CKD (chronic kidney disease) stage 4, GFR 15-29*06/17/2009 Anemia [D64.9] 06/17/2009 Incisional hernia [K43.2] 09/22/2009 06/01/2010 Osteopenia [M85.80] 12/15/2009 Esophagitis, unspecified [K20.90] 10/24/2010 08/10/2015 Acute gastritis without mention of hemorrhage [*10/24/2010 08/10/2015 Diaphragmatic hernia without mention of obstruc*10/24/2010 08/10/2015 Macular degeneration [H35.30] 06/06/2011 06/17/2017 Hyperparathyroidism, 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] 07/18/2009 Lumbago [M54.50] 09/26/2011 06/17/2017 Benign neoplasm of colon [D12.6] 07/02/2012 Exhausted vascular access [Z45.2] 01/01/2014 06/30/2014 Myopia [H52.10] 08/19/2014 06/17/2017 Regular astigmatism [H52.229] 08/19/2014 06/17/2017 Presbyopia [H52.4] 08/19/2014 06/17/2017 Nonexudative senile macular degeneration of ret*10/20/2014 11/17/2020 Lytic lesion of bone on x-ray [M89.9] 09/19/2016 06/17/2017 Controlled type 2 diabetes mellitus without com*10/09/2016 11/17/2020 Nonexudative age-related macular degeneration, *10/09/2016 Pseudophakia, both eyes [Z96.1] 10/09/2016 Posterior capsule opacification [H26.499] 10/09/2016 Vitreous floaters of both eyes [H43.393] 10/09/2016 06/17/2017 Regular astigmatism, bilateral [H52.223] 10/09/2016 06/17/2017 DDD (degenerative disc disease), thoracolumbar *11/15/2016 Controlled diabetes mellitus type 1 without com*10/24/2017 09/10/2018 Syndrome of inappropriate secretion of antidiur*01/29/2022 Hyponatremia [E87.1] 02/22/2022 Hypertensive heart disease with acute on chroni*02/22/2022 Hypoxemia [R09.02] 02/22/2022 Encounter Status:Closed by ANNALISA STEPHEN on 05/14/23 [facility] 05-14-2023 Note HNO ID: [id number] Author: ANNALISA STEPHEN RN Service: ? Author Type: Registered Nurse Type: Progress Notes Filed: 05/14/2023 12:12 Note Text: [facility] Care Path Telephonic Outreach Provider Action/FYI Contact made with patient: No, Left message Annalisa Stephen RN May 14, 2023 12:12 PM [facility] 05-14-2023 History of Present illness Narrative [facility] Care Path Telephonic Outreach Provider Action/FYI Contact made with patient: Akanksha, Left message Annalisa Stephen RN May 14, 2023 12:12 PM documented in this encounter [facility] 05-08-2023 Note HNO ID: [id number] Author: TESSA DIAS [facility] Service: ? Author Type: Pharmacist Type: Progress Notes Filed: 05/08/2023 13:41 Note Text: Primary Care Pharmacy Visit CC (Reason for Consult): (E11.22, N18.4, Z79.4) Type 2 diabetes mellitus with stage 4 chronic kidney disease, with long-term current use of insulin (HCC) (primary encounter diagnosis) Goal(s): A1c <7% (per consult) Last Collaborating Provider Visit: 05/01/[address] Hernandez Herbert is a 78 year old female presenting for follow up visit telephone call. Patient consents to pharmacy collaborative practice agreement. Last Pharmacy Visit: 04/03/23 - Trulicity increased Interim events: - 04/10/23 - Trulicity switched to Mounjaro d/t shortage of Trulicity at pharmacy - 05/01/23 - A1c results showed significant improvement from 12.4% to 8.3% HPI: Confirmed starting the Mounjaro in place of the Trulicity; has 1 pen left Tolerating Mounjaro well Current DM Medications: Lantus 54 units once daily at bedtime - reports taking 64 units once daily Mounjaro 2.5 mg once weekly Previously Trialed DM Meds: Glimepiride - nocturnal hypoglycemia Metformin - reduced renal fxn Pioglitazone - swelling Trulicity - tolerated well; unable to procure d/t backorder - switched to Mounjaro GLYCEMIC CONTROL: Glucometer present at visit: No Hypoglycemia: No Some mornings down to 110s, 120s recently Had a 200 this morning due to eating some sweets yesterday Past medical history reviewed. ALLERGIES Allergen Reactions Levaquin [Levofloxa* itching,diarrhea,dausea,burning skin Seasonal Allergies Other: See Comments Sinus Sulfa (Sulfonamide * rash and hives Current Outpatient Medications Medication Sig Dispense Refill simvastatin (ZOCOR) 40 mg tablet Take 1 tablet by mouth daily at bedtime. For cholesterol. 90 tablet 3 tirzepatide (MOUNJARO) 2.5 mg/0.5 mL pen injector Inject 2.5 mg subcutaneously one time a week. 2 mL 0 venlafaxine ER (EFFEXOR XR) 37.5 mg 24 hr capsule Take 1 capsule by mouth once daily. 90 capsule 1 insulin glargine (LANTUS SOLOSTAR U-100 INSULIN) 100 unit/mL (3 mL) Inject 54 Units subcutaneously daily at bedtime. hydrALAZINE (APRESOLINE) 25 mg tablet Take 25 mg by mouth three times a day. gabapentin (NEURONTIN) 300 mg capsule Take 1 capsule by mouth two times a day for 180 days. 180 capsule 1 furosemide (LASIX) 20 mg tablet Take 1 tablet by mouth once daily. Take an extra 20 mg tablet daily as needed 120 tablet 1 metoprolol succinate ER (TOPROL XL) 50 mg 24 hr tablet Take 1 tablet by mouth once daily. Per Dr. Yulia Jennings, cardiology. Insulin Noble, Disposable, 29 gauge x 1/2 Use once daily as directed. Dx E11.29 100 Each 4 iwaguigtfkn-kpizgydqz-vmxjzksz (TRELEGY ELLIPTA) 100-62.5-25 mcg inhalation powder Inhale 1 Puff as instructed once daily. docusate sodium (COLACE) 100 mg capsule Take 1 capsule by mouth as needed. melatonin 5 mg tablet Take 2 tablets by mouth. senna (SENOKOT) 8.6 mg tab Take 1 tablet by mouth as needed. Vit C-Vit L-Vbzffh-FtVj-Lutein (PRESERVISION LUTEIN) 226 mg-200 unit -5 mg-0.8 mg cap Take 1 capsule by mouth once daily. COMPOUNDED PRESCRIPTION Take 1 tablet by mouth twice daily. Plexus Bio-5 (Probiotic) blood sugar diagnostic (ONETOUCH ULTRA TEST) test strip Test blood sugar(s) 2 times daily. (Patient taking differently: 1 Each. Test blood sugar(s) 2 times daily.) 200 Strip 3 epoetin zari (PROCRIT,EPOGEN) 10,000 unit/mL injection Inject 10,000 Units subcutaneously q 4 WEEKS. 12,000 Units every two weeks. 0 Lancets (FREESTYLE LANCETS) Misc Misc Test twice daily 250.02 100 3 No current facility-administered medications for this visit. Pill bottles are not present. Adherence: denies missed doses. Rx coverage: Payor: MEDICARE / Plan: MEDICARE A AND B / Product Type: Medicare / Medications affordable? Yes PHARMACOTHERAPY PREVENTATIVE MEDS: On GEOVANNI/ARB: No On Statin: Yes On ASA: No EXAM: There were no vitals taken for this visit. Last 3 Encounter BP Readings: Date: BP: 05/01/2023 118/68 01/04/2023 106/66 08/15/2022 116/74 Wt: 119.7 kg (264 lb) BMI: 45.32 kg/(m2) LABS: Lab Results Component Value Date HBA1C 8.3 05/01/2023 HBA1C 12.4 01/04/2023 HBA1C 11.6 08/15/2022 HBA1C 7.6 08/09/2021 HBA1C 6.5 05/19/2018 HBA1C 6.4 02/18/2012 HBA1C 7.8 09/21/2011 Glucose 171 03/22/2021 BUN 33 05/19/2018 Creatinine 2.02 03/22/2021 Sodium 140 03/22/2021 Potassium 4.4 03/22/2021 Chloride 108 03/22/2021 CO2 22 05/19/2018 Calcium 10 03/22/2021 Lab Results Component Value Date CHOL 121 05/19/2018 LDL 50 05/19/2018 HDL 44 05/19/2018 TG 135 05/19/2018 Albumin/Creat Ratio (mg/g) Date Value 09/21/2011 77 (H) eGFR-All Other Races (.) Date Value 05/19/2018 30 ASSESSMENT/PLAN: 1. Type 2 diabetes mellitus with stage 4 chronic kidney disease, with long-term current use of insulin (HCC) - ICD9: 250.40, 585.4, V58.67, ICD10: (more content not included)... [facility] 05-08-2023 Miscellaneous Notes Patient seen by PharmD today. Would benefit from titration of Mounjaro dose. Mounjaro not yet included in PharmD CPA; pending for provider signature. Patient's request for medication is as follows: Requested Prescriptions Pending Prescriptions Disp Refills tirzepatide (MOUNJARO) 5 mg/0.5 mL pen injector 2 mL 1 Sig: Inject 5 mg subcutaneously one time a week. Prescription(s) as above. Please process accordingly. Tessa Dias PharmD Primary Care Clinical Circular Saw Operator documented in this encounter [facility] 05-08-2023 History of Present illness Narrative Primary Care Pharmacy Visit CC (Reason for Consult): (E11.22, N18.4, Z79.4) Type 2 diabetes mellitus with stage 4 chronic kidney disease, with long-term current use of insulin (HCC) (primary encounter diagnosis) Goal(s): A1c <7% (per consult) Last Collaborating Provider Visit: 05/01/[address] Hernandez Herbert is a 78 year old female presenting for follow up visit telephone call. Patient consents to pharmacy collaborative practice agreement. Last Pharmacy Visit: 04/03/23 - Trulicity increased Interim events: - 04/10/23 - Trulicity switched to Mounjaro d/t shortage of Trulicity at pharmacy - 05/01/23 - A1c results showed significant improvement from 12.4% to 8.3% HPI: Confirmed starting the Mounjaro in place of the Trulicity; has 1 pen left Tolerating Mounjaro well Current DM Medications: Lantus 54 units once daily at bedtime - reports taking 64 units once daily Mounjaro 2.5 mg once weekly Previously Trialed DM Meds: Glimepiride - nocturnal hypoglycemia Metformin - reduced renal fxn Pioglitazone - swelling Trulicity - tolerated well; unable to procure d/t backorder - switched to Mounjaro GLYCEMIC CONTROL: Glucometer present at visit: No Hypoglycemia: No Some mornings down to 110s, 120s recently Had a 200 this morning due to eating some sweets yesterday Past medical history reviewed. ALLERGIES Allergen Reactions Levaquin [Levofloxa* itching,diarrhea,dausea,burning skin Seasonal Allergies Other: See Comments Sinus Sulfa (Sulfonamide * rash and hives Current Outpatient Medications Medication Sig Dispense Refill simvastatin (ZOCOR) 40 mg tablet Take 1 tablet by mouth daily at bedtime. For cholesterol. 90 tablet 3 tirzepatide (MOUNJARO) 2.5 mg/0.5 mL pen injector Inject 2.5 mg subcutaneously one time a week. 2 mL 0 venlafaxine ER (EFFEXOR XR) 37.5 mg 24 hr capsule Take 1 capsule by mouth once daily. 90 capsule 1 insulin glargine (LANTUS SOLOSTAR U-100 INSULIN) 100 unit/mL (3 mL) Inject 54 Units subcutaneously daily at bedtime. hydrALAZINE (APRESOLINE) 25 mg tablet Take 25 mg by mouth three times a day. gabapentin (NEURONTIN) 300 mg capsule Take 1 capsule by mouth two times a day for 180 days. 180 capsule 1 furosemide (LASIX) 20 mg tablet Take 1 tablet by mouth once daily. Take an extra 20 mg tablet daily as needed 120 tablet 1 metoprolol succinate ER (TOPROL XL) 50 mg 24 hr tablet Take 1 tablet by mouth once daily. Per Dr. Yulia Jennings, cardiology. Insulin Noble, Disposable, 29 gauge x 1/2 Use once daily as directed. Dx E11.29 100 Each 4 gqcutfplhoe-dqnfmxojy-iccgejsa (TRELEGY ELLIPTA) 100-62.5-25 mcg inhalation powder Inhale 1 Puff as instructed once daily. docusate sodium (COLACE) 100 mg capsule Take 1 capsule by mouth as needed. melatonin 5 mg tablet Take 2 tablets by mouth. senna (SENOKOT) 8.6 mg tab Take 1 tablet by mouth as needed. Vit C-Vit H-Ydvpyz-AcGw-Lutein (PRESERVISION LUTEIN) 226 mg-200 unit -5 mg-0.8 mg cap Take 1 capsule by mouth once daily. COMPOUNDED PRESCRIPTION Take 1 tablet by mouth twice daily. Plexus Bio-5 (Probiotic) blood sugar diagnostic (ONETOUCH ULTRA TEST) test strip Test blood sugar(s) 2 times daily. (Patient taking differently: 1 Each. Test blood sugar(s) 2 times daily.) 200 Strip 3 epoetin zari (PROCRIT,EPOGEN) 10,000 unit/mL injection Inject 10,000 Units subcutaneously q 4 WEEKS. 12,000 Units every two weeks. 0 Lancets (FREESTYLE LANCETS) Misc Misc Test twice daily 250.02 100 3 No current facility-administered medications for this visit. Pill bottles are not present. Adherence: denies missed doses. Rx coverage: Payor: MEDICARE / Plan: MEDICARE A AND B / Product Type: Medicare / Medications affordable? Yes PHARMACOTHERAPY PREVENTATIVE MEDS: On GEOVANNI/ARB: No On Statin: Yes On ASA: No EXAM: There were no vitals taken for this visit. Last 3 Encounter BP Readings: Date: BP: 05/01/2023 118/68 01/04/2023 106/66 08/15/2022 116/74 Wt: 119.7 kg (264 lb) BMI: 45.32 kg/(m^2) LABS: Lab Results Component Value Date HBA1C 8.3 05/01/2023 HBA1C 12.4 01/04/2023 HBA1C 11.6 08/15/2022 HBA1C 7.6 08/09/2021 HBA1C 6.5 05/19/2018 HBA1C 6.4 02/18/2012 HBA1C 7.8 09/21/2011 Glucose 171 03/22/2021 BUN 33 05/19/2018 Creatinine 2.02 03/22/2021 Sodium 140 03/22/2021 Potassium 4.4 03/22/2021 Chloride 108 03/22/2021 CO2 22 05/19/2018 Calcium 10 03/22/2021 Lab Results Component Value Date CHOL 121 05/19/2018 LDL 50 05/19/2018 HDL 44 05/19/2018 TG 135 05/19/2018 Albumin/Creat Ratio (mg/g) Date Value 09/21/2011 77 (H) eGFR-All Other Races (.) Date Value 05/19/2018 30 ASSESSMENT/PLAN: 1. Type 2 diabetes mellitus with stage 4 chronic kidney disease, with long-term current use of insulin (HCC) - ICD9: 250.40, 585.4, V58.67, ICD10: E11.22, N18.4, Z79.4 - Improving control - Increase Mounjaro to 5 mg once weekly (will pend Rx for provider signature) - Decrease Lantus to 58 units once daily - Statin prescribed - simvastatin - Blood glucose monitoring on a once daily schedule - Counseled on healthy diet and regular exercise - Follow up in 1 month, sooner should any other issues arise. Follow Up: Next PCP visit: 08/30/23 Next PharmD visit: 06/05/23 Tessa Dias PharmD Primary Care Clinical Circular Saw Operator The majority of the pharmacy visit (> 50%) was spent counseling and/or coordinating care for the patient. interaction: telephonic time was 10 minutes. documented in this encounter [facility] 05-03-2023 Note HNO ID: [id number] Author: PAZ BROWN RN Service: ? Author Type: Registered Nurse Type: Progress Notes Filed: 05/03/2023 11:09 Note Text: CDM ENROLLMENT Provider Action / FYI: Contact Made with Patient: Yes Patient identified by name and date of . Discussed care with patient. Patient contacted regarding Disease Specific Care Path: Diabetes Congestive Heart Failure Enrollment Status: Enrolled as a Check-up Needs Assessment Fall risk completed: Yes Was risk identified: No Activities of Daily Living (ADLs) completed: Yes Was risk identified: No SDOH updated (Include a Social Work referral for all new enrollments) (Complete the following domains: Financial, Housing, Transportation, Food, Utilities, and Smoking) : Yes Was risk identified: No Medications Do you have any questions about taking your medication or which medications you should be taking? No Do you need any medication refills at this time, including any of the medications you might take only when needed? No Social It can be normal to feel anxious or down during a time like this. Would you like to talk to a mental health professional about how you have been feeling? No Goals Disease specific goals updated: Yes Patient stated goal(s) updated: Yes Symptoms Are you experiencing any new or worsening symptoms you need to talk about today? Yes Based on sales commissions analyst, the following disposition is advised: Other Call Dispositions No action needed Paz Brown RN May 03, 2023 11:06 AM [facility] 05-03-2023 History of Present illness Narrative CD ENROLLMENT Provider Action / FYI: Contact Made with Patient: Yes Patient identified by name and date of . Discussed care with patient. Patient contacted regarding Disease Specific Care Path: Diabetes Congestive Heart Failure Enrollment Status: Enrolled as a Check-up Needs Assessment Fall risk completed: Yes Was risk identified: No Activities of Daily Living (ADLs) completed: Yes Was risk identified: No SDOH updated (Include a Social Work referral for all new enrollments) (Complete the following domains: Financial, Housing, Transportation, Food, Utilities, and Smoking) : Yes Was risk identified: No Medications Do you have any questions about taking your medication or which medications you should be taking? No Do you need any medication refills at this time, including any of the medications you might take only when needed? No Social It can be normal to feel anxious or down during a time like this. Would you like to talk to a mental health professional about how you have been feeling? No Goals Disease specific goals updated: Yes Patient stated goal(s) updated: Yes Symptoms Are you experiencing any new or worsening symptoms you need to talk about today? Yes Based on sales commissions analyst, the following disposition is advised: Other Call Dispositions No action needed Paz Brown RN May 03, 2023 11:06 AM CD ENROLLMENT Provider Action / FYI: Contact Made with Patient: No, left a message. Paz Brown RN May 02, 2023 4:01 PM documented in this encounter [facility] 05-02-2023 Note HNO ID: [id number] Author: PAZ BROWN RN Service: ? Author Type: Registered Nurse Type: Progress Notes Filed: 05/03/2023 11:09 Note Text: CDM ENROLLMENT Provider Action / FYI: Contact Made with Patient: No, left a message. Paz Brown RN May 02, 2023 4:01 PM [facility] 05-02-2023 Note Patient Outreach ([facility]) VAL HERBERT ([id number]) 1945 F Date Time Provider Department [facility]02[facility] During your visit today, we recorded the following information about you: Paz Brown RN 05/03/2023 11:09 AM Signed CDM ENROLLMENT Provider Action / FYI: Contact Made with Patient: No, left a message. Paz Brown RN May 02, 2023 4:01 PM Paz Brown RN 05/03/2023 11:09 AM Signed CDM ENROLLMENT Provider Action / FYI: Contact Made with Patient: Yes Patient identified by name and date of . Discussed care with patient. Patient contacted regarding Disease Specific Care Path: Diabetes Congestive Heart Failure Enrollment Status: Enrolled as a Check-up Needs Assessment Fall risk completed: Yes Was risk identified: No Activities of Daily Living (ADLs) completed: Yes Was risk identified: No SDOH updated (Include a Social Work referral for all new enrollments) (Complete the following domains: Financial, Housing, Transportation, Food, Utilities, and Smoking) : Yes Was risk identified: No Medications Do you have any questions about taking your medication or which medications you should be taking? No Do you need any medication refills at this time, including any of the medications you might take only when needed? No Social It can be normal to feel anxious or down during a time like this. Would you like to talk to a mental health professional about how you have been feeling? No Goals Disease specific goals updated: Yes Patient stated goal(s) updated: Yes Symptoms Are you experiencing any new or worsening symptoms you need to talk about today? Yes Based on sales commissions analyst, the following disposition is advised: Other Call Dispositions No action needed Paz Brown RN May 03, 2023 11:06 AM Allergies As of Date: 05/02/2023 Noted Allergy Reaction LEVAQUIN (LEVOFLOXACIN) 12/29/2004 Comments: itching,diarrhea,dausea,burning skin SEASONAL ALLERGIES 08/19/2014 14 - Other: See Comments Comments: Sinus SULFA (SULFONAMIDE ANTIBIOTICS) 12/29/2004 Comments: rash and hives Date Reviewed: 05/01/2023 Reviewed by: Jesenia Glasgow LPN - Fully Assessed Reason for Visit: Community Monitoring Outreach [Other] Cmt: CDM Enrollment Prescriptions as of 05/03/2023 - simvastatin (ZOCOR) 40 mg tablet Take 1 tablet by mouth daily at bedtime. For cholesterol. - tirzepatide (MOUNJARO) 2.5 mg/0.5 mL pen injector Inject 2.5 mg subcutaneously one time a week. - venlafaxine ER (EFFEXOR XR) 37.5 mg 24 hr capsule Take 1 capsule by mouth once daily. - insulin glargine (LANTUS SOLOSTAR U-100 INSULIN) 100 unit/mL (3 mL) Inject 54 Units subcutaneously daily at bedtime. - hydrALAZINE (APRESOLINE) 25 mg tablet Take 25 mg by mouth three times a day. - gabapentin (NEURONTIN) 300 mg capsule Take 1 capsule by mouth two times a day for 180 days. - furosemide (LASIX) 20 mg tablet Take 1 tablet by mouth once daily. Take an extra 20 mg tablet daily as needed - metoprolol succinate ER (TOPROL XL) 50 mg 24 hr tablet Take 1 tablet by mouth once daily. Per Dr. Yulia Jennings, cardiology. - Insulin Noble, Disposable, 29 gauge x 1/2 Use once daily as directed. Dx E11.29 - sywhirviven-sxpwtnvst-mzvmadem (TRELEGY ELLIPTA) 100-62.5-25 mcg inhalation powder Inhale 1 Puff as instructed once daily. - docusate sodium (COLACE) 100 mg capsule Take 1 capsule by mouth as needed. - melatonin 5 mg tablet Take 2 tablets by mouth. - senna (SENOKOT) 8.6 mg tab Take 1 tablet by mouth as needed. - Vit C-Vit U-Esmdgi-QrGj-Lutein (PRESERVISION LUTEIN) 226 mg-200 unit -5 mg-0.8 mg cap Take 1 capsule by mouth once daily. - COMPOUNDED PRESCRIPTION Take 1 tablet by mouth twice daily. Plexus Bio-5 (Probiotic) - blood sugar diagnostic (ONETOUCH ULTRA TEST) test strip Test blood sugar(s) 2 times daily. - epoetin zari (PROCRIT,EPOGEN) 10,000 unit/mL injection Inject 10,000 Units subcutaneously q 4 WEEKS. 12,000 Units every two weeks. - Lancets (FREESTYLE LANCETS) Misc Misc Test twice daily 250.02 Problem List As Of Date 05/02/2023 Noted Resolved Essential hypertension [I10] Generalized osteoarthritis [M15.9] ALLERGIC RHINITIS D/T ANIMAL [J30.81] Hyperlipemia [E78.5] Acute bronchitis [J20.9] 06/01/2010 Chest pain, unspecified [R07.9] 06/01/2010 Cough [R05.9] 06/01/2010 Type II diabetes mellitus with renal manifestat*12/20/2006 Obesity, Class III, BMI 40-49.9 (morbid obesity*11/09/2008 CKD (chronic kidney disease) stage 4, GFR 15-29*06/17/2009 Anemia [D64.9] 06/17/2009 Incisional hernia [K43.2] 09/22/2009 06/01/2010 Osteopenia [M85.80] 12/15/2009 Esophagitis, unspecified [K20.90] 10/24/2010 08/10/2015 Acute gastritis without mention of hemorrhage [*10/24/2010 08/10/2015 Diaphragmatic hernia without mention of obstruc*10/24/2010 08/10/2015 (more content not included)... [facility] 05-01-2023 Note HNO ID: [id number] Author: NEEL TURPIN MD Service: ? Author Type: Physician Type: Progress Notes Filed: 05/01/2023 10:54 Note Text: This note was created using NoteWriter. Subjective Val Herbert is a 78 year old female here with her son. She was doing reasonably well, and her conditions were stable. She was tolerating Mounjaro, as Trulicity was out of stock. Her glucoses were in better. She sees Dr. Choi for podiatry every 10-11 weeks. She was there last Saturday. She saw Dr. Louise recently, and her chronic anemia has not needed stimulating factor injection recently. Review of Systems Constitutional: Negative for fever and unexpected weight change. Respiratory: Negative for cough, shortness of breath and wheezing. Cardiovascular: Negative for chest pain and palpitations. Neurological: Negative for dizziness and headaches. 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, Bilateral, Intermediate Dry Stage Pseudophakia, Both Eyes Posterior Capsule Opacification Ddd (Degenerative Disc Disease), 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 For cholesterol. tirzepatide (MOUNJARO) 2.5 mg/0.5 mL pen injector Inject 2.5 mg subcutaneously one time a week. venlafaxine ER (EFFEXOR XR) 37.5 mg 24 hr capsule Take 1 capsule by mouth once daily. insulin glargine (LANTUS SOLOSTAR U-100 INSULIN) 100 unit/mL (3 mL) Inject 54 Units subcutaneously daily at bedtime. hydrALAZINE (APRESOLINE) 25 mg tablet Take 25 mg by mouth three times a day. gabapentin (NEURONTIN) 300 mg capsule Take 1 capsule by mouth two times a day for 180 days. furosemide (LASIX) 20 mg tablet Take 1 tablet by mouth once daily. Take an extra 20 mg tablet daily as needed metoprolol succinate ER (TOPROL XL) 50 mg 24 hr tablet Take 1 tablet by mouth once daily. Per Dr. Yulia Jennings, cardiology. Insulin Noble, Disposable, 29 gauge x 1/2 Use once daily as directed. Dx E11.29 vvppmwfwjlh-qutnvmton-isscnsdg (TRELEGY ELLIPTA) 100-62.5-25 mcg inhalation powder Inhale 1 Puff as instructed once daily. docusate sodium (COLACE) 100 mg capsule Take 1 capsule by mouth as needed. melatonin 5 mg tablet Take 2 tablets by mouth. senna (SENOKOT) 8.6 mg tab Take 1 tablet by mouth as needed. Vit C-Vit N-Ysfjae-FuIt-Lutein (PRESERVISION LUTEIN) 226 mg-200 unit -5 mg-0.8 mg cap Take 1 capsule by mouth once daily. COMPOUNDED PRESCRIPTION Take 1 tablet by mouth twice daily. Plexus Bio-5 (Probiotic) blood sugar diagnostic ([employer] ULTRA TEST) test strip Test blood sugar(s) 2 times daily. (Patient taking differently: 1 Each. Test blood sugar(s) 2 times daily.) epoetin zari (PROCRIT,EPOGEN) 10,000 unit/mL injection Inject 10,000 Units subcutaneously q 4 WEEKS. 12,000 Units every two weeks. Lancets (FREESTYLE LANCETS) Misc Misc Test twice daily 250.02 No current facility-administered medications for this visit. Objective BP 118/68 (BP Site: Left Arm, BP Position: Sitting, BP Cuff Size: Large Adult) Pulse 88 Temp 36.7 ?C (98.1 ?F) (Temporal) Resp 16 Wt 119.7 kg (264 lb) BMI 45.32 kg/m? Physical Exam Constitutional: General: She is not in acute distress. Cardiovascular: Rate and Rhythm: Normal rate and regular rhythm. Heart sounds: No murmur heard. No gallop. Pulmonary: Effort: No respiratory distress. Breath sounds: No wheezing or rales. Musculoskeletal: Right lower leg: No edema. Left lower leg: No edema. Comments: Bilateral AFO. Neurological: General: No focal deficit present. Mental Status: She is alert. Comments: On wheelchair. Hemoglobin A1C (POCT) (%) Date Value 05/01/2023 8.3 Assessment and Plan 1. Type 2 diabetes mellitus with stage 4 chronic kidney disease, with long-term current use of insulin (HCC) - ICD9: 250.40, 585.4, V58.67, ICD10: E11.22, N18.4, Z79.4 (primary diagnosis) - Improving control - continue current regimen. - HEMOGLOBIN A1C (POC) - LIPID PANEL BASIC - ALBUMIN/CREAT RATIO RND UR - HGB A1C - RSV vaccine recommended at her pharmacy. VIS given to son. 2. Hypertensive heart disease with acute on (more content not included)... [facility] 05-01-2023 Instructions Neel Turpin MD - 05/01/2023 10:44 AM EST FASTING LABS IN AUGUST. YOUR A1C IS 8.3% TODAY. documented in this encounter [facility] 05-01-2023 History of Present illness Narrative This note was created using [employer]. Subjective Val Herbert is a 78 year old female here with her son. She was doing reasonably well, and her conditions were stable. She was tolerating Mounjaro, as Trulicity was out of stock. Her glucoses were in better. She sees Dr. Choi for podiatry every 10-11 weeks. She was there last Saturday. She saw Dr. Louise recently, and her chronic anemia has not needed stimulating factor injection recently. Review of Systems Constitutional: Negative for fever and unexpected weight change. Respiratory: Negative for cough, shortness of breath and wheezing. Cardiovascular: Negative for chest pain and palpitations. Neurological: Negative for dizziness and headaches. 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 For cholesterol. tirzepatide (MOUNJARO) 2.5 mg/0.5 mL pen injector Inject 2.5 mg subcutaneously one time a week. venlafaxine ER (EFFEXOR XR) 37.5 mg 24 hr capsule Take 1 capsule by mouth once daily. insulin glargine (LANTUS SOLOSTAR U-100 INSULIN) 100 unit/mL (3 mL) Inject 54 Units subcutaneously daily at bedtime. hydrALAZINE (APRESOLINE) 25 mg tablet Take 25 mg by mouth three times a day. gabapentin (NEURONTIN) 300 mg capsule Take 1 capsule by mouth two times a day for 180 days. furosemide (LASIX) 20 mg tablet Take 1 tablet by mouth once daily. Take an extra 20 mg tablet daily as needed metoprolol succinate ER (TOPROL XL) 50 mg 24 hr tablet Take 1 tablet by mouth once daily. Per Dr. Yulia Jennings, cardiology. Insulin Noble, Disposable, 29 gauge x 1/2 Use once daily as directed. Dx E11.29 duqnyfohlkr-sexgerouo-stayjvfj (TRELEGY ELLIPTA) 100-62.5-25 mcg inhalation powder Inhale 1 Puff as instructed once daily. docusate sodium (COLACE) 100 mg capsule Take 1 capsule by mouth as needed. melatonin 5 mg tablet Take 2 tablets by mouth. senna (SENOKOT) 8.6 mg tab Take 1 tablet by mouth as needed. Vit C-Vit Q-Iaxchj-PiBe-Lutein (PRESERVISION LUTEIN) 226 mg-200 unit -5 mg-0.8 mg cap Take 1 capsule by mouth once daily. COMPOUNDED PRESCRIPTION Take 1 tablet by mouth twice daily. Plexus Bio-5 (Probiotic) blood sugar diagnostic ([employer] Ventures[employer]OUCH ULTRA TEST) test strip Test blood sugar(s) 2 times daily. (Patient taking differently: 1 Each. Test blood sugar(s) 2 times daily.) epoetin zari (PROCRIT,EPOGEN) 10,000 unit/mL injection Inject 10,000 Units subcutaneously q 4 WEEKS. 12,000 Units every two weeks. Lancets (FREESTYLE LANCETS) Misc Misc Test twice daily 250.02 No current facility-administered medications for this visit. Objective BP 118/68 (BP Site: Left Arm, BP Position: Sitting, BP Cuff Size: Large Adult) Pulse 88 Temp 36.7 C (98.1 F) (Temporal) Resp 16 Wt 119.7 kg (264 lb) BMI 45.32 kg/m Physical Exam Constitutional: General: She is not in acute distress. Cardiovascular: Rate and Rhythm: Normal rate and regular rhythm. Heart sounds: No murmur heard. No gallop. Pulmonary: Effort: No respiratory distress. Breath sounds: No wheezing or rales. Musculoskeletal: Right lower leg: No edema. Left lower leg: No edema. Comments: Bilateral AFO. Neurological: General: No focal deficit present. Mental Status: She is alert. Comments: On wheelchair. Hemoglobin A1C (POCT) (%) Date Value 05/01/2023 8.3 Assessment and Plan 1. Type 2 diabetes mellitus with stage 4 chronic kidney disease, with long-term current use of insulin ([facility]) - ICD9: 250.40, 585.4, V58.67, ICD10: E11.22, N18.4, Z79.4 (primary diagnosis) - Improving control - continue current regimen. - HEMOGLOBIN A1C (POC) - LIPID PANEL BASIC - ALBUMIN/CREAT RATIO RND UR - HGB A1C - RSV vaccine recommended at her pharmacy. VIS given to son. 2. Hypertensive heart disease with acute on chronic systolic congestive heart failure (HCC) - ICD9: 402.91, 428.23, ICD10: I11.0, I50.23 - Controlled 3. CKD (chronic kidney disease) stage 4, GFR 15-29 ml/min ([facility]) - ICD9: 585.4, ICD10: N18.4 - eGFR: Stable - CBC 4. Hyperparathyroidism, secondary renal (HCC) - ICD9: 588.81, ICD10: N25.81 Monitored. - COMP METABOLIC PANEL 5. Essential hypertension - ICD9: 401.9, ICD10: I10 - Controlled 6. Obesity, Class III, BMI 40-49.9 (morbid obesity) ([facility]) - ICD9: 278.01, ICD10: E66.01 Weight decreasing Neel Turpin MD documented in this encounter [facility] 04-26-2023 Note HNO ID: [id number] Author: ?, ?, ? Service: ? Author Type: ? Type: Progress Notes Filed: 04/26/2023 07:42 Note Text: Value Hub Review Provider Action / FYI: QAE - No exclusions. Added to CDM enrollment shared list. Upon review of patient chart, does patient meet exclusion criteria? No CDM [facility] 04-26-2023 History of Present illness Narrative Value Hub Review Provider Action / FYI: QAE - No exclusions. Added to CDM enrollment shared list. Upon review of patient chart, does patient meet exclusion criteria? No CDM documented in this encounter [facility] 04-23-2023 Miscellaneous Notes [facility] called to see if providers office had received the genetic testing form they had sent. I told her someone else had a message in asking if forms were received, but it did not say if they were received. Called Pt and she said she had received a call from someone she couldn't understand. They had told her Medicare wanted her to get Genetic testing done, and to talk with her doctor to see if she needed it. Pt states she does not want it, she is 78 she doesn't need to have genetic testing done. documented in this encounter [facility] 04-15-2023 History of Present illness Narrative Subjective Patient ID: Val Herbert is a 78 y.o. female who presents for 4 month follow up (MARTINEZ; HYPOXEMIA). HPI Patient was seen today in the office on a 4-month follow-up visit. Patient reports that her breathing is doing good. She has had no problems with using the oxygen at 2 L at nighttime and she feels much better with the oxygen on. She is also on Trelegy-100 daily. I also reviewed with her the results of her overnight oxygen trending which showed that her saturations are good at nighttime on 2 L of oxygen. This study was done on 12/13/2022. The patient reports having a mild cough with some clear sputum production in the morning. She does feel that her mouth is sometimes dry which I told her is due to her 2 L of oxygen and I suggested that her family obtain for her a humidifier for her oxygen from her [employer] company. She can also use a humidifier in the bedroom. Patient reports that she is gradually losing weight with treatment that she uses at home. Review of Systems Patient denies having any fever, chills or rhinitis at nighttime. She is not a smoker. Objective Physical Exam HEENT, there is no inflammation on examination of the oropharynx and the patient does report rinsing her mouth with water after use of the Trelegy. Pulmonary, diminished breath sounds bilaterally which is probably due to her weight but otherwise the lung aj are clear. Cardio, heart sounds are regular rate and rhythm. Extremities, no cyanosis, clubbing or pretibial edema. Psych, the patient was alert and oriented x 2. Patient did not appear dyspneic at rest in the office. Assessment/Plan Impressions: 1. Moderate obstructive airway disease. 2. Dyspnea on exertion. 3. History of hypoxemia when sleeping. 4. Morbid obesity. Recommendations: 1. Continue with 2 L/min of oxygen at nighttime. 2. Continue with her weight reduction program. 3. Will follow-up with the patient in 5 months. This note was transcribed using the [employer] Dictation system. There may be grammatical, punctuation, or verbiage errors that occur with voice recognition programs. Paula Walter DO 04/15/23 12:01 PM documented in this encounter [facility] Work Phone: 04-03-2023 Note HNO ID: [id number] Author: TESSA DIAS RPh Service: ? Author Type: Pharmacist Type: Progress Notes Filed: 04/03/2023 14:57 Note Text: Primary Care Pharmacy Visit CC (Reason for Consult): (E11.22, N18.4, Z79.4) Type 2 diabetes mellitus with stage 4 chronic kidney disease, with long-term current use of insulin (HCC) (primary encounter diagnosis) Goal(s): A1c <7% (per consult) Last Collaborating Provider Visit: 01/04/23 with Kacy Berumen, JERRY Val Herbert is a 78 year old female presenting for follow up visit telephone call. Patient consents to pharmacy collaborative practice agreement. Last Pharmacy Visit: 03/13/23 - Lantus decreased to 54 units once daily HPI: Reports doing well overall States she has noticed some higher readings recently, in the 200s most of the time Has 2 pens left of Trulicity, still tolerating well States she goes to [facility] once a month for labs, can get A1c done next month with her other labs No longer having dizziness/suspected hypoglycemia since decreasing Lantus after last visit Current DM Medications: Lantus 54 units once daily at bedtime Trulicity 0.75 mg once weekly on Fridays Previously Trialed DM Meds: Glimepiride - nocturnal hypoglycemia Metformin - reduced renal fxn Pioglitazone - swelling Diet Denies any recent changes GLYCEMIC CONTROL: Glucometer present at visit: No Hypoglycemia: No BGs around 200s lately 185 this morning Past medical history reviewed. ALLERGIES Allergen Reactions Levaquin [Levofloxa* itching,diarrhea,dausea,burning skin Seasonal Allergies Other: See Comments Sinus Sulfa (Sulfonamide * rash and hives Current Outpatient Medications Medication Sig Dispense Refill venlafaxine ER (EFFEXOR XR) 37.5 mg 24 hr capsule Take 1 capsule by mouth once daily. 90 capsule 1 insulin glargine (LANTUS SOLOSTAR U-100 INSULIN) 100 unit/mL (3 mL) Inject 54 Units subcutaneously daily at bedtime. dulaglutide (TRULICITY) 0.75 mg/0.5 mL pen injector Inject 0.75 mg subcutaneously one time a week. 2 mL 2 hydrALAZINE (APRESOLINE) 25 mg tablet Take 25 mg by mouth three times a day. gabapentin (NEURONTIN) 300 mg capsule Take 1 capsule by mouth two times a day for 180 days. 180 capsule 1 furosemide (LASIX) 20 mg tablet Take 1 tablet by mouth once daily. Take an extra 20 mg tablet daily as needed 120 tablet 1 metoprolol succinate ER (TOPROL XL) 50 mg 24 hr tablet Take 1 tablet by mouth once daily. Per Dr. Yulia Jennings, cardiology. Insulin Noble, Disposable, 29 gauge x 1/2 Use once daily as directed. Dx E11.29 100 Each 4 thfhrecfcgf-kofodfkjb-rqqajdhs (TRELEGY ELLIPTA) 100-62.5-25 mcg inhalation powder Inhale 1 Puff as instructed once daily. simvastatin (ZOCOR) 40 mg tablet Take 1 tablet by mouth daily at bedtime. For cholesterol. 90 tablet 3 docusate sodium (COLACE) 100 mg capsule Take 1 capsule by mouth as needed. melatonin 5 mg tablet Take 2 tablets by mouth. senna (SENOKOT) 8.6 mg tab Take 1 tablet by mouth as needed. calcitriol (ROCALTROL) 0.5 mcg capsule Take 1 capsule by mouth. Taking three times a week Vit C-Vit Q-Hhwlux-AvGc-Lutein (PRESERVISION LUTEIN) 226 mg-200 unit -5 mg-0.8 mg cap Take 1 capsule by mouth once daily. COMPOUNDED PRESCRIPTION Take 1 tablet by mouth twice daily. Plexus Bio-5 (Probiotic) blood sugar diagnostic (GTFO VenturesTOUCH ULTRA TEST) test strip Test blood sugar(s) 2 times daily. (Patient taking differently: 1 Each. Test blood sugar(s) 2 times daily.) 200 Strip 3 epoetin zari (PROCRIT,EPOGEN) 10,000 unit/mL injection Inject 10,000 Units subcutaneously q 4 WEEKS. 12,000 Units every two weeks. 0 Lancets (FREESTYLE LANCETS) Misc Misc Test twice daily 250.02 100 3 No current facility-administered medications for this visit. Pill bottles are not present. Adherence: denies missed doses. Rx coverage: Payor: MEDICARE / Plan: MEDICARE A AND B / Product Type: Medicare / Medications affordable? Yes PHARMACOTHERAPY PREVENTATIVE MEDS: On GEOVANNI/ARB: No On Statin: Yes On ASA: No EXAM: There were no vitals taken for this visit. Last 3 Encounter BP Readings: Date: BP: 01/04/2023 106/66 08/15/2022 116/74 04/27/2022 109/67 Wt: 120.2 kg (265 lb) BMI: 45.49 kg/(m2) LABS: Lab Results Component Value Date HBA1C 12.4 01/04/2023 HBA1C 11.6 08/15/2022 HBA1C 7.6 08/09/2021 HBA1C 8.3 03/22/2021 HBA1C 7.7 11/17/2020 HBA1C 6.5 05/19/2018 HBA1C 6.4 02/18/2012 HBA1C 7.8 09/21/2011 Glucose 171 03/22/2021 BUN 33 05/19/2018 Creatinine 2.02 03/22/2021 Sodium 140 03/22/2021 Potassium 4.4 03/22/2021 Chloride 108 03/22/2021 CO2 22 05/19/2018 Calcium 10 03/22/2021 Lab Results Component Value Date CHOL 121 05/19/2018 LDL 50 05/19/2018 HDL 44 05/19/2018 TG 135 05/19/2018 Albumin/Creat Ratio (mg/g) Date Value 09/21/2011 77 (H) eGFR-All Other Races (.) Date Value 05/19/2018 30 ASSESSMENT/PLAN: 1. Type 2 diabetes mellitus with stage 4 chroni (more content not included)... [facility] 03-13-2023 Note HNO ID: [id number] Author: Tessa Dias RPh Service: ? Author Type: Pharmacist Type: Progress Notes Filed: 03/13/2023 1:20 PM Note Text: Primary Care Pharmacy Visit CC (Reason for Consult): (E11.22, N18.4, Z79.4) Type 2 diabetes mellitus with stage 4 chronic kidney disease, with long-term current use of insulin (HCC) (primary encounter diagnosis) Goal(s): A1c <7% (per consult) Last Collaborating Provider Visit: 01/04/23 with Kacy Berumen CNP Val Herbert is a 78 year old female presenting for follow up visit telephone call. Patient consents to pharmacy collaborative practice agreement. Last Pharmacy Visit: 02/14/23 (initial visit) - Trulicity 0.75 mg weekly started, Lantus increased to 60 units daily HPI: Reports her BGs have been down recently. Confirmed starting Trulicity, tolerating well so far. States it took a little while to get to her, has had 2 doses so far. States she just received another box of Trulicity from mail order this week Reports she has been breaking out in a sweat occasionally - yesterday after lunch. happening at different times of day. When she is sweaty, checks her BG and is not low. States she's not sure if this could be due to the warmer weather Has lost a couple more pounds recently, now down to 258lb Sometimes feels a little dizzy, but not often Current DM Medications: Lantus 60 units once daily at bedtime Trulicity 0.75 mg once weekly on Fridays Previously Trialed DM Meds: Glimepiride - nocturnal hypoglycemia Metformin - reduced renal fxn Pioglitazone - swelling Diet Denies any recent changes GLYCEMIC CONTROL: Glucometer present at visit: No Hypoglycemia: No FBG 114 this morning Denies any BGs>200 lately Denies any BGs<70 Past medical history reviewed. ALLERGIES Allergen Reactions Levaquin [Levofloxa* itching,diarrhea,dausea,burning skin Seasonal Allergies Other: See Comments Sinus Sulfa (Sulfonamide * rash and hives Current Outpatient Medications Medication Sig Dispense Refill insulin glargine (LANTUS SOLOSTAR U-100 INSULIN) 100 unit/mL (3 mL) Inject 60 Units subcutaneously daily at bedtime. 50 mL 3 dulaglutide (TRULICITY) 0.75 mg/0.5 mL pen injector Inject 0.75 mg subcutaneously one time a week. 2 mL 2 hydrALAZINE (APRESOLINE) 25 mg tablet Take 25 mg by mouth three times a day. gabapentin (NEURONTIN) 300 mg capsule Take 1 capsule by mouth two times a day for 180 days. 180 capsule 1 venlafaxine ER (EFFEXOR XR) 37.5 mg 24 hr capsule Take 1 capsule by mouth once daily. 90 capsule 1 furosemide (LASIX) 20 mg tablet Take 1 tablet by mouth once daily. Take an extra 20 mg tablet daily as needed 120 tablet 1 metoprolol succinate ER (TOPROL XL) 50 mg 24 hr tablet Take 1 tablet by mouth once daily. Per Dr. Yulia Jennings, cardiology. Insulin Noble, Disposable, 29 gauge x 1/2 Use once daily as directed. Dx E11.29 100 Each 4 dknykahrftu-yhikohcwb-thzuicjk (TRELEGY ELLIPTA) 100-62.5-25 mcg inhalation powder Inhale 1 Puff as instructed once daily. simvastatin (ZOCOR) 40 mg tablet Take 1 tablet by mouth daily at bedtime. For cholesterol. 90 tablet 3 docusate sodium (COLACE) 100 mg capsule Take 1 capsule by mouth as needed. melatonin 5 mg tablet Take 2 tablets by mouth. senna (SENOKOT) 8.6 mg tab Take 1 tablet by mouth as needed. calcitriol (ROCALTROL) 0.5 mcg capsule Take 1 capsule by mouth. Taking three times a week Vit C-Vit X-Dqykiz-XyQo-Lutein (PRESERVISION LUTEIN) 226 mg-200 unit -5 mg-0.8 mg cap Take 1 capsule by mouth once daily. COMPOUNDED PRESCRIPTION Take 1 tablet by mouth twice daily. Plexus Bio-5 (Probiotic) blood sugar diagnostic (ONETOUCH ULTRA TEST) test strip Test blood sugar(s) 2 times daily. (Patient taking differently: 1 Each. Test blood sugar(s) 2 times daily.) 200 Strip 3 epoetin zari (PROCRIT,EPOGEN) 10,000 unit/mL injection Inject 10,000 Units subcutaneously q 4 WEEKS. 12,000 Units every two weeks. 0 Lancets (FREESTYLE LANCETS) Misc Misc Test twice daily 250.02 100 3 No current facility-administered medications for this visit. Pill bottles are not present. Adherence: denies missed doses. Rx coverage: Payor: MEDICARE / Plan: MEDICARE A AND B / Product Type: Medicare / Medications affordable? Yes PHARMACOTHERAPY PREVENTATIVE MEDS: On GEOVANNI/ARB: No On Statin: Yes On ASA: No EXAM: There were no vitals taken for this visit. Last 3 Encounter BP Readings: Date: BP: 01/04/2023 106/66 08/15/2022 116/74 04/27/2022 109/67 Wt: 120.2 kg (265 lb) BMI: 45.49 kg/(m2) LABS: Lab Results Component Value Date HBA1C 12.4 01/04/2023 HBA1C 11.6 08/15/2022 HBA1C 7.6 08/09/2021 HBA1C 8.3 03/22/2021 HBA1C 7.7 11/17/2020 HBA1C 6.5 05/19/2018 HBA1C 6.4 02/18/2012 HBA1C 7.8 09/21/2011 Glucose 171 03/22/2021 BUN 33 05/19/2018 Creatinine 2.02 03/22/2021 Sodium 140 03/22/2021 Potassium 4.4 03/22/2021 Chloride 108 03/22/2021 CO2 22 05/19/2018 Calcium 10 (more content not included)... [facility] 02-14-2023 Miscellaneous Notes Patient's son returned call. Notified of update. No further questions Sent Trulicity Rx to [facility]. Call attempt to reach patient and Hardik; unable to reach. Left VM with update and advised to contact office if unable to get from [facility]. Tessa Dias, PharmD Primary Care Clinical Circular Saw Operator Hardik, Pt's son calling to let you know they cannot get the Trulicity. Pharmacy instructed this is on international backorder and do not have a future date when to expect. Option they were told was to try thru [facility] to get this and if they do not have this will need to know what to do. Son agrees if you want to try sending thru [facility]. Regarding the Ozempic he was told by the pharmacy is just as hard to get. Please advise pt. Juli Figueredo LPN documented in this encounter [facility] 02-14-2023 Note HNO ID: [id number] Author: Tessa Dias RPh Service: ? Author Type: Pharmacist Type: Progress Notes Filed: 02/14/2023 10:38 AM Note Text: Primary Care Pharmacy Visit CC (Reason for Consult): (E11.22, N18.4, Z79.4) Type 2 diabetes mellitus with stage 4 chronic kidney disease, with long-term current use of insulin (HCC) (primary encounter diagnosis) Goal(s): A1c <7% Last Collaborating Provider Visit: 01/04/23 with Kacyshaheed Berumen, OIL WELL SHOOTER (Lantus increased to 55 units daily) Val Herbert is a 78 year old female presenting for initial visit: This initial consult was conducted in person with the patient where the consult agreement was explained. The patient may decline or cancel the agreement at any time. After consideration, the patient consented to the pharmacy consult agreement and agreed to allow medications be collaboratively managed by a pharmacist. HPI: Here with her son, Hardik States her insulin dose was increased at last visit. Needs refill for updated dose sent to pharmacy, has only 1 pen left Has noticed BGs have changed and are fluctuating throughout the day Had some Novolog left over from [place] she [place] and was using but has now run out, no longer using Sometimes takes some extra Lantus in the morning if her BG is higher Hardik reports he feels the meals she's eating is a major factor with the recent change with her blood sugar; however, main concern has been to limit sodium in meals vs carbohydrates Current DM Medications: Lantus 55 units once daily at bedtime Previously Trialed DM Meds: Glimepiride - nocturnal hypoglycemia Metformin - reduced renal fxn Pioglitazone - swelling Diet Eating 2-3 meals/day Does not always have breakfast because if she stays asleep Has meals on wheels M-F - not diabetic specific Breakfast - banana Evening - tomato soup Also eats some of the Healthy Choice steamer meals Snack - plain popcorn GLYCEMIC CONTROL: Glucometer present at visit: No Hypoglycemia: No SMBGS (Fingersticks) Date Fasting AM 02/13 243 02/12 220 02/11 223 02/10 304 02/09 284 02/08 273 02/07 250 02/06 210 02/05 138 02/04 153 02/03 207 02/02 184 02/01 259 01/31 236 01/30 205 01/28 145 AVG 221 Past medical history reviewed. ALLERGIES Allergen Reactions Levaquin [Levofloxa* itching,diarrhea,dausea,burning skin Seasonal Allergies Other: See Comments Sinus Sulfa (Sulfonamide * rash and hives Current Outpatient Medications Medication Sig Dispense Refill insulin glargine (LANTUS SOLOSTAR U-100 INSULIN) 100 unit/mL (3 mL) Inject 55 Units subcutaneously daily at bedtime. 50 mL 1 hydrALAZINE (APRESOLINE) 25 mg tablet Take 25 mg by mouth three times a day. gabapentin (NEURONTIN) 300 mg capsule Take 1 capsule by mouth two times a day for 180 days. 180 capsule 1 venlafaxine ER (EFFEXOR XR) 37.5 mg 24 hr capsule Take 1 capsule by mouth once daily. 90 capsule 1 furosemide (LASIX) 20 mg tablet Take 1 tablet by mouth once daily. Take an extra 20 mg tablet daily as needed 120 tablet 1 metoprolol succinate ER (TOPROL XL) 50 mg 24 hr tablet Take 1 tablet by mouth once daily. Per Dr. Yulia Jennings, cardiology. Insulin Noble, Disposable, 29 gauge x 1/2 Use once daily as directed. Dx E11.29 100 Each 4 rzhaylzvaxh-csizysfys-yoiodqyb (TRELEGY ELLIPTA) 100-62.5-25 mcg inhalation powder Inhale 1 Puff as instructed once daily. simvastatin (ZOCOR) 40 mg tablet Take 1 tablet by mouth daily at bedtime. For cholesterol. 90 tablet 3 docusate sodium (COLACE) 100 mg capsule Take 1 capsule by mouth. melatonin 5 mg tablet Take 2 tablets by mouth. lidocaine (SALONPAS) 4 % patch Apply 1 Patch to affected area. senna (SENOKOT) 8.6 mg tab Take 1 tablet by mouth. calcitriol (ROCALTROL) 0.5 mcg capsule Take 1 capsule by mouth once daily. Vit C-Vit D-Wqjsct-HtEc-Lutein (PRESERVISION LUTEIN) 226 mg-200 unit -5 mg-0.8 mg cap Take 1 capsule by mouth once daily. COMPOUNDED PRESCRIPTION Take 1 tablet by mouth twice daily. Plexus Bio-5 (Probiotic) blood sugar diagnostic (ONETOUCH ULTRA TEST) test strip Test blood sugar(s) 2 times daily. (Patient taking differently: 1 Each. Test blood sugar(s) 2 times daily.) 200 Strip 3 epoetin zari (PROCRIT,EPOGEN) 10,000 unit/mL injection Inject 10,000 Units subcutaneously q 4 WEEKS. 12,000 Units every two weeks. 0 Lancets (FREESTYLE LANCETS) Misc Misc Test twice daily 250.02 100 3 No current facility-administered medications for this visit. Pill bottles are not present. Medication list present Adherence: denies missed doses. Denies any missed doses of insulin Rx coverage: Payor: MEDICARE / Plan: MEDICARE A AND B / Product Type: Medicare / Medications affordable? Yes PHARMACOTHERAPY PREVENTATIVE MEDS: On GEOVANNI/ARB: No On Statin: Yes On ASA: No EXAM: There were no vitals taken for this visit. Last 3 Encounter BP Readings: Date: BP: 01/04/2023 106/ (more content not included)... [facility] 02-14-2023 History of Present illness Narrative Images from the original note were not included. Primary Care Pharmacy Visit CC (Reason for Consult): (E11.22, N18.4, Z79.4) Type 2 diabetes mellitus with stage 4 chronic kidney disease, with long-term current use of insulin ([facility]) (primary encounter diagnosis) Goal(s): A1c <7% Last Collaborating Provider Visit: 01/04/23 with Kacy Berumen CNP (Lantus increased to 55 units daily) Val Herbert is a 78 year old female presenting for initial visit: This initial consult was conducted in person with the patient where the consult agreement was explained. The patient may decline or cancel the agreement at any time. After consideration, the patient consented to the pharmacy consult agreement and agreed to allow medications be collaboratively managed by a pharmacist. HPI: Here with her son, Hardik States her insulin dose was increased at last visit. Needs refill for updated dose sent to pharmacy, has only 1 pen left Has noticed BGs have changed and are fluctuating throughout the day Had some Novolog left over from when she was in the halfway and was using but has now run out, no longer using Sometimes takes some extra Lantus in the morning if her BG is higher Hardik reports he feels the meals she's eating is a major factor with the recent change with her blood sugar; however, main concern has been to limit sodium in meals vs carbohydrates Current DM Medications: Lantus 55 units once daily at bedtime Previously Trialed DM Meds: Glimepiride - nocturnal hypoglycemia Metformin - reduced renal fxn Pioglitazone - swelling Diet Eating 2-3 meals/day Does not always have breakfast because if she stays asleep Has meals on wheels M-F - not diabetic specific Breakfast - banana Evening - tomato soup Also eats some of the Healthy Choice steamer meals Snack - plain popcorn GLYCEMIC CONTROL: Glucometer present at visit: No Hypoglycemia: No SMBGS (Fingersticks) Date Fasting AM 02/13 243 02/12 220 02/11 223 02/10 304 02/09 284 02/08 273 02/07 250 02/06 210 02/05 138 02/04 153 02/03 207 02/02 184 02/01 259 01/31 236 01/30 205 01/28 145 AVG 221 Past medical history reviewed. ALLERGIES Allergen Reactions Levaquin [Levofloxa* itching,diarrhea,dausea,burning skin Seasonal Allergies Other: See Comments Sinus Sulfa (Sulfonamide * rash and hives Current Outpatient Medications Medication Sig Dispense Refill insulin glargine (LANTUS SOLOSTAR U-100 INSULIN) 100 unit/mL (3 mL) Inject 55 Units subcutaneously daily at bedtime. 50 mL 1 hydrALAZINE (APRESOLINE) 25 mg tablet Take 25 mg by mouth three times a day. gabapentin (NEURONTIN) 300 mg capsule Take 1 capsule by mouth two times a day for 180 days. 180 capsule 1 venlafaxine ER (EFFEXOR XR) 37.5 mg 24 hr capsule Take 1 capsule by mouth once daily. 90 capsule 1 furosemide (LASIX) 20 mg tablet Take 1 tablet by mouth once daily. Take an extra 20 mg tablet daily as needed 120 tablet 1 metoprolol succinate ER (TOPROL XL) 50 mg 24 hr tablet Take 1 tablet by mouth once daily. Per Dr. Yulia Jennings, cardiology. Insulin Noble, Disposable, 29 gauge x 1/2 Use once daily as directed. Dx E11.29 100 Each 4 vrsqdouphum-voutsblfo-ftlvmfpu (TRELEGY ELLIPTA) 100-62.5-25 mcg inhalation powder Inhale 1 Puff as instructed once daily. simvastatin (ZOCOR) 40 mg tablet Take 1 tablet by mouth daily at bedtime. For cholesterol. 90 tablet 3 docusate sodium (COLACE) 100 mg capsule Take 1 capsule by mouth. melatonin 5 mg tablet Take 2 tablets by mouth. lidocaine (SALONPAS) 4 % patch Apply 1 Patch to affected area. senna (SENOKOT) 8.6 mg tab Take 1 tablet by mouth. calcitriol (ROCALTROL) 0.5 mcg capsule Take 1 capsule by mouth once daily. Vit C-Vit B-Gmkirb-QsYh-Lutein (PRESERVISION LUTEIN) 226 mg-200 unit -5 mg-0.8 mg cap Take 1 capsule by mouth once daily. COMPOUNDED PRESCRIPTION Take 1 tablet by mouth twice daily. Plexus Bio-5 (Probiotic) blood sugar diagnostic (ONETOUCH ULTRA TEST) test strip Test blood sugar(s) 2 times daily. (Patient taking differently: 1 Each. Test blood sugar(s) 2 times daily.) 200 Strip 3 epoetin zari (PROCRIT,EPOGEN) 10,000 unit/mL injection Inject 10,000 Units subcutaneously q 4 WEEKS. 12,000 Units every two weeks. 0 Lancets (FREESTYLE LANCETS) Misc Misc Test twice daily 250.02 100 3 No current facility-administered medications for this visit. Pill bottles are not present. Medication list present Adherence: denies missed doses. Denies any missed doses of insulin Rx coverage: Payor: MEDICARE / Plan: MEDICARE A AND B / Product Type: Medicare / Medications affordable? Yes PHARMACOTHERAPY PREVENTATIVE MEDS: On GEOVANNI/ARB: No On Statin: Yes On ASA: No EXAM: There were no vitals taken for this visit. Last 3 Encounter BP Readings: Date: BP: 01/04/2023 106/66 08/15/2022 116/74 04/27/2022 109/67 Wt: 120.2 kg (265 lb) BMI: 45.49 kg/(m^2) LABS: Lab Results Component Value Date HBA1C 12.4 01/04/2023 HBA1C 11.6 08/15/2022 HBA1C 7.6 08/09/2021 HBA1C 8.3 03/22/2021 HBA1C 7.7 11/17/2020 HBA1C 6.5 05/19/2018 HBA1C 6.4 02/18/2012 HBA1C 7.8 09/21/2011 Glucose 171 03/22/2021 BUN 33 05/19/2018 Creatinine 2.02 03/22/2021 Sodium 140 03/22/2021 Potassium 4.4 03/22/2021 Chloride 108 03/22/2021 CO2 22 05/19/2018 Calcium 10 03/22/2021 Outside Labs - BMP 01/30/23 Lab Results Component Value Date CHOL 121 05/19/2018 LDL 50 05/19/2018 HDL 44 05/19/2018 TG 135 05/19/2018 Albumin/Creat Ratio (mg/g) Date Value 09/21/2011 77 (H) eGFR-All Other Races (.) Date Value 05/19/2018 30 ASSESSMENT/PLAN: 1. Type 2 diabetes mellitus with stage 4 chronic kidney disease, with long-term current use of insulin (HCC) - ICD9: 250.40, 585.4, V58.67, ICD10: E11.22, N18.4, Z79.4 - Uncontrolled. A1c not at goal <7%, per consult; however, may consider less stringent goal of <8% due to age and comorbidities.BG log show FBGs averaging above goal, without instance of hypoglycemia. Patient would benefit from additional therapy. Patient history negative for pancreatitis or personal/family history of MEN2/MTC. - Start dulaglutide (Trulicity) 0.75 mg once weekly. Reviewed appropriate medication administration technique, potential adverse effects and storage - Increase Lantus to 60 units once daily - Statin prescribed - simvastatin - Blood glucose monitoring on a once daily schedule - Counseled on healthy diet and regular exercise - Follow up in 1 month, sooner should any other issues arise. Follow Up: Next PCP visit: not scheduled Next PharmD visit: 03/13/23 via phone Tessa Dias PharmD Primary Care Clinical Circular Saw Operator The majority of the pharmacy visit (> 50%) was spent counseling and/or coordinating care for the patient. interaction: face to face time was 55 minutes. documented in this encounter [facility] 02-14-2023 Instructions Tessa Dias RPh - 02/14/2023 9:00 AM EST Increase Lantus to 60 units once daily Start Trulicity 0.75 mg once weekly documented in this encounter [facility] 02-11-2023 Miscellaneous Notes Patient has been identified by name and date of : Yes, Viktoria Johnston RN Date 02/11/2023 Time 10:06 am Patient phones for refill(s): Requested Prescriptions Pending Prescriptions Disp Refills insulin glargine (LANTUS SOLOSTAR U-100 INSULIN) 100 unit/mL (3 mL) 50 mL 1 Sig: Inject 55 Units subcutaneously daily at bedtime. Date of last office visit in primary care: 01/04/2023 Date of next office visit in primary care: Visit date not found Patient requests prescription be sent today. Only has 1 pen left. Last 2 Encounter Wt Readings: Date: Wt: 08/15/2022 120.2 kg (265 lb) 04/27/2022 127 kg (280 lb) Previous labs/tests for medication: Diabetes: Hemoglobin A1C Date Value 08/15/2022 11.6 05/19/2018 6.5 % 02/18/2012 6.4 % Hemoglobin A1C (POCT) (%) Date Value 01/04/2023 12.4 08/09/2021 7.6 Please advise. Thank you. Viktoria Johnston RN. documented in this encounter [facility] 01-04-2023 Note HNO ID: [id number] Author: Kacy Berumen APRN.[employer] WELL SH[employer]OTER Service: ? Author Type: Nurse Practitioner Type: Progress Notes Filed: 01/04/2023 2:26 PM Note Text: CC: Patient presents with: F/U 6 months HPI Val Herbert is a 77 year old female who presents today for above. Her blood sugars continue to be elevated. Lantus increased to 50 units a few months ago without any improvement. Recommended patient schedule with clinical pharmacist or diabetes structured management program at last visit but she declined at that time until she could speak with her son who is her transportation. Fasting average around 200 typically. She is not on anything else for diabetes. She had been on Amaryl but this was discontinued earlier this year. Review of Systems See HPI PAST MEDICAL HISTORY Diagnosis Date Acute bronchitis Acute gastritis without mention of hemorrhage Allergic rhinitis due to animal (cat) (dog) hair and dander Anemia 06/17/2009 Anemia of chronic disease Benign neoplasm of colon Chest pain, unspecified CKD (chronic kidney disease) 06/17/2009 Cough DDD (degenerative disc disease), thoracolumbar 11/15/2016 Dr. Johana Kovacs, Orthopedics. Degenerative disc disease DIABETES TYPE II W RENAL MANIF-UNCONTRLLD 12/20/2006 Diagnosed in about 2000 per the pt (her early numbers in the A1C were in the 8-9% range) A1C 6% in -, 5.8% in 07-24, 5.7% in 11-[address] glory Humphries in 05-24: pt does have ARMD Stopped Amaryl in 07-24 secondary to low nocturnal sugars: reportedly had an A1C in the 6% range Stopped Actos as of 11-24 for low readings and an A1C of 5.7% DIABETES TYPE II W RENAL MANIFESTATIONS 08/15/2008 Creat 2.4 in 03-26, 2 in 07-24, 2 in 11-24 Alb/Creat 34 in 07-24 Diaphragmatic hernia without mention of obstruction or gangrene Diverticulosis of colon (without mention of hemorrhage) Duodenitis without mention of hemorrhage Esophagitis, unspecified Generalized osteoarthrosis, unspecified site Humerus fracture 12/2011 left proximal and distal humerus Hyperparathyroidism, 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 Hypertensive heart disease with acute on chronic systolic congestive heart failure (HCC) 02/22/2022 Hypoxemia 02/22/2022 Internal hemorrhoids without mention of complication Kidney stones Macular degeneration 06/06/2011 Nonexudative age-related macular degeneration, bilateral, intermediate dry stage 10/09/2016 Obesity 11/09/2008 Sleep eval 07-24: effic 20%, no REM, AHI 1.7, low sat 86%, non-diagnostic Osteopenia 12/15/2009 Other and unspecified hyperlipidemia Spinal stenosis Syndrome of inappropriate secretion of antidiuretic hormone (HCC) 01/29/2022 Type I (juvenile type) diabetes mellitus without mention of complication, not stated as uncontrolled (HCC) Unspecified essential hypertension PAST SURGICAL HISTORY Procedure Laterality Date APPENDECTOMY 1964 age 19 ARTHRP KNE CONDYLEANDPLATU MEDIALANDLAT COMPARTMENTS 2006 Knee replacement, total, left CATARACT EXTRACTION HX 2016 both eyes catacts removed, [facility] CHOLECYSTECTOMY 1970 COLONOSCOPY FLX DX W/COLLJ SPEC WHEN PFRMD 09/12/2012 Colonoscopy COLSC FLX W/RMVL OF TUMOR POLYP LESION SNARE TQ 07/11/09 Polyp at 45cm - small CYSTOSCOPY, URETERAL STENT CHANGE/INSERTION EGD TRANSORAL BIOPSY SINGLE/MULTIPLE 07/11/09 duodenitis, gastritis EGD TRANSORAL BIOPSY SINGLE/MULTIPLE 10/24/10 [facility] TUNNELED CTR VAD W/SUBQ PORT AGE 4 YR/> 12/23/13 Left IJ OPEN REPAIR OF ROTATOR CUFF ACUTE 2003 Rotator cuff repair, Right PAST SURGICAL HISTORY OF 1959 Right ureteral kink, hydronephrosis. PAST SURGICAL HISTORY OF 2002 Right ankle pinning. PAST SURGICAL HISTORY OF Varicose vein stripping REPAIR FIRST ABDOMINAL WALL HERNIA 09/21/2009 Hernia repair, ventral REPAIR OF ANKLE FRACTURE Right 01/24/2018 ORIF R ankle fracture REVJ TOT KNEE ARTHRP FEMANDENTIRE TIBIAL COMPONE 2007 Knee replacement, revision, left TONSILLECTOMY PRIMARY/SECONDARY Tonsillectomy TOTAL ABDOMINAL HYSTERECT W/WO RMVL TUBE OVARY 1970 Hysterectomy, DANIEL, Bilateral BSO ALLERGIES Levaquin [Levofloxacin], Seasonal Allergies, and Sulfa (Sulfonamide Antibiotics) MEDICATIONS hydrALAZINE (APRESOLINE) 25 mg tablet Take 25 mg by mouth three times a day. furosemide (LASIX) 20 mg tablet Take 1 tablet by mouth once daily. Take an extra 20 mg tablet daily as needed metoprolol succinate ER (TOPROL XL) 50 mg 24 hr tablet Take 1 tablet by mouth once daily. Per Dr. Yulia Jennings, cardiology. Insulin Noble, Disposable, 29 gauge x 1/2 Use once daily as directed. Dx E11.29 venlafaxine ER (EFFEXOR XR) 37.5 mg 24 hr capsule Take 1 capsule by mouth once daily. gabapentin (NEURONTIN) 300 mg capsule Take 1 capsule by mouth twice daily for 180 days. insulin glargine (LANTUS SOLOSTAR U-100 INSULIN) 100 unit/mL (3 mL) Inject 45 Units subcutaneously daily at bedtime. simvastatin (ZOCOR) 40 mg tablet Take 1 tablet by mouth daily at bedtime. For padma (more content not included)... [facility] 01-04-2023 Instructions Kacy Berumen APRN.CNP - 01/04/2023 10:36 AM EDT Increase Lantus to 55 units at bedtime documented in this encounter [facility] 01-04-2023 History of Present illness Narrative CC: Patient presents with: F/U 6 months HPI Val Herbert is a 77 year old female who presents today for above. Her blood sugars continue to be elevated. Lantus increased to 50 units a few months ago without any improvement. Recommended patient schedule with clinical pharmacist or diabetes structured management program at last visit but she declined at that time until she could speak with her son who is her transportation. Fasting average around 200 typically. She is not on anything else for diabetes. She had been on Amaryl but this was discontinued earlier this year. Review of Systems See HPI PAST MEDICAL HISTORY Diagnosis Date Acute bronchitis Acute gastritis without mention of hemorrhage Allergic rhinitis due to animal (cat) (dog) hair and dander Anemia 06/17/2009 Anemia of chronic disease Benign neoplasm of colon Chest pain, unspecified CKD (chronic kidney disease) 06/17/2009 Cough DDD (degenerative disc disease), thoracolumbar 11/15/2016 Dr. Johana Kovacs, Orthopedics. Degenerative disc disease DIABETES TYPE II W RENAL MANIF-UNCONTRLLD 12/20/2006 Diagnosed in about 2000 per the pt (her early numbers in the A1C were in the 8-9% range) A1C 6% in 03-26, 5.8% in 07-24, 5.7% in 11-[address] glory Humphries in 05-24: pt does have ARMD Stopped Amaryl in 07-24 secondary to low nocturnal sugars: reportedly had an A1C in the 6% range Stopped Actos as of 11-24 for low readings and an A1C of 5.7% DIABETES TYPE II W RENAL MANIFESTATIONS 08/15/2008 Creat 2.4 in 03-26, 2 in 07-24, 2 in 11-24 Alb/Creat 34 in 07-24 Diaphragmatic hernia without mention of obstruction or gangrene Diverticulosis of colon (without mention of hemorrhage) Duodenitis without mention of hemorrhage Esophagitis, unspecified Generalized osteoarthrosis, unspecified site Humerus fracture 12/2011 left proximal and distal humerus Hyperparathyroidism, 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 Hypertensive heart disease with acute on chronic systolic congestive heart failure (HCC) 02/22/2022 Hypoxemia 02/22/2022 Internal hemorrhoids without mention of complication Kidney stones Macular degeneration 06/06/2011 Nonexudative age-related macular degeneration, bilateral, intermediate dry stage 10/09/2016 Obesity 11/09/2008 Sleep eval 07-24: effic 20%, no REM, AHI 1.7, low sat 86%, non-diagnostic Osteopenia 12/15/2009 Other and unspecified hyperlipidemia Spinal stenosis Syndrome of inappropriate secretion of antidiuretic hormone (HCC) 01/29/2022 Type I (juvenile type) diabetes mellitus without mention of complication, not stated as uncontrolled (HCC) Unspecified essential hypertension PAST SURGICAL HISTORY Procedure Laterality Date APPENDECTOMY 1964 age 19 ARTHRP KNE CONDYLE&PLATU MEDIAL&LAT COMPARTMENTS 2006 Knee replacement, total, left CATARACT EXTRACTION HX 2015 both eyes catacts removed, [facility] CHOLECYSTECTOMY 1970 COLONOSCOPY FLX DX W/COLLJ SPEC WHEN PFRMD 09/12/2012 Colonoscopy COLSC FLX W/RMVL OF TUMOR POLYP LESION SNARE TQ 07/11/09 Polyp at 45cm - small CYSTOSCOPY, URETERAL STENT CHANGE/INSERTION EGD TRANSORAL BIOPSY SINGLE/MULTIPLE 07/11/09 duodenitis, gastritis EGD TRANSORAL BIOPSY SINGLE/MULTIPLE 10/24/10 INSJ TUNNELED CTR VAD W/SUBQ PORT AGE 4 YR/> 12/23/13 Left IJ OPEN REPAIR OF ROTATOR CUFF ACUTE 2003 Rotator cuff repair, Right PAST SURGICAL HISTORY OF 1959 Right ureteral kink, hydronephrosis. PAST SURGICAL HISTORY OF 2002 Right ankle pinning. PAST SURGICAL HISTORY OF Varicose vein stripping REPAIR FIRST ABDOMINAL WALL HERNIA 09/21/2009 Hernia repair, ventral REPAIR OF ANKLE FRACTURE Right 01/24/2018 ORIF R ankle fracture REVJ TOT KNEE ARTHRP FEM&ENTIRE TIBIAL COMPONE 2007 Knee replacement, revision, left TONSILLECTOMY PRIMARY/SECONDARY <AGE 11 1970 Tonsillectomy TOTAL ABDOMINAL HYSTERECT W/WO RMVL TUBE OVARY 1970 Hysterectomy, DANIEL, Bilateral BSO ALLERGIES Levaquin [Levofloxacin], Seasonal Allergies, and Sulfa (Sulfonamide Antibiotics) MEDICATIONS hydrALAZINE (APRESOLINE) 25 mg tablet Take 25 mg by mouth three times a day. furosemide (LASIX) 20 mg tablet Take 1 tablet by mouth once daily. Take an extra 20 mg tablet daily as needed metoprolol succinate ER (TOPROL XL) 50 mg 24 hr tablet Take 1 tablet by mouth once daily. Per Dr. Yulia Jennings, cardiology. Insulin Noble, Disposable, 29 gauge x 1/2 Use once daily as directed. Dx E11.29 venlafaxine ER (EFFEXOR XR) 37.5 mg 24 hr capsule Take 1 capsule by mouth once daily. gabapentin (NEURONTIN) 300 mg capsule Take 1 capsule by mouth twice daily for 180 days. insulin glargine (LANTUS SOLOSTAR U-100 INSULIN) 100 unit/mL (3 mL) Inject 45 Units subcutaneously daily at bedtime. simvastatin (ZOCOR) 40 mg tablet Take 1 tablet by mouth daily at bedtime. For cholesterol. docusate sodium (COLACE) 100 mg capsule Take 1 capsule by mouth. melatonin 5 mg tablet Take 2 tablets by mouth. lidocaine (SALONPAS) 4 % patch Apply 1 Patch to affected area. senna (SENOKOT) 8.6 mg tab Take 1 tablet by mouth. calcitriol (ROCALTROL) 0.5 mcg capsule Take 1 capsule by mouth once daily. Vit C-Vit K-Hfwczs-AfTb-Lutein (PRESERVISION LUTEIN) 226 mg-200 unit -5 mg-0.8 mg cap Take 1 capsule by mouth once daily. blood sugar diagnostic ([employer] ULTRA TEST) test strip Test blood sugar(s) 2 times daily. (Patient taking differently: 1 Each. Test blood sugar(s) 2 times daily.) Lancets (FREESTYLE LANCETS) Misc Misc Test twice daily 250.02 otgalfwczay-wttgjwgif-nstetsxs (TRELEGY ELLIPTA) 100-62.5-25 mcg inhalation powder Inhale 1 Puff as instructed once daily. COMPOUNDED PRESCRIPTION Take 1 tablet by mouth twice daily. Plexus Bio-5 (Probiotic) epoetin zari (PROCRIT,EPOGEN) 10,000 unit/mL injection Inject 10,000 Units subcutaneously q 4 WEEKS. 12,000 Units every two weeks. FAMILY HISTORY Problem Relation Age of Onset Cancer Mother bone, Cancer Sister bone, Heart Sister pacemaker, valve repair Stroke Father Stroke Sister Stroke Brother age 75 Social History Tobacco Use Smoking status: Never Smokeless tobacco: Never Vaping Use Vaping Use: Never used Substance Use Topics Alcohol use: No Drug use: No BP 106/66 Pulse 96 Resp 18 SpO2 92% Physical Exam Vitals reviewed. Constitutional: General: She is not in acute distress. Appearance: She is obese. Neurological: Mental Status: She is alert. Psychiatric: Mood and Affect: Mood normal. Behavior: Behavior normal. DATA REVIEWED: Most recent labs ASSESSMENT/PLAN: 1. Type 2 diabetes mellitus with stage 4 chronic kidney disease, with long-term current use of insulin (HCC) - ICD9: 250.40, 585.4, V58.67, ICD10: E11.22, N18.4, Z79.4 (primary diagnosis) - Worsening control - Increase Lantus to 55 units at bedtime - Referral to Pharmacy for diabetic medication management - Discussed diabetic education issues of diabetes complications and monitoring required and hypoglycemic/hyperglycemic symptoms - Follow up in 3 months, sooner should any other issues arise. - eGFR: Stable - Albuminuria: due for urine ACR - Counseled on avoiding NSAIDs, adequate hydration - Counseled on low sodium diet - INSULIN GLARGINE (U-100) 100 UNIT/ML (3 ML) SUBCUTANEOUS PEN - HEMOGLOBIN A1C (POC) - CONSULT TO PHARMACY - INSULIN GLARGINE (U-100) 100 UNIT/ML (3 ML) SUBCUTANEOUS PEN 2. DDD (degenerative disc disease), thoracolumbar - ICD9: 722.51, ICD10: M51.35 Stable - GABAPENTIN 300 MG CAPSULE refilled 3. Depressive disorder - ICD9: 311, ICD10: F32.A Stable - VENLAFAXINE ER 37.5 MG CAPSULE,EXTENDED RELEASE 24 HR refilled 4. Encounter for immunization - ICD9: V03.89, ICD10: Z23 - INFLUENZA VACCINE, PRSV FREE, AGE 65+ YR, HIGH DOSE, QUADRIVALENT (FLUZONE HIGH-DOSE) Prescription instructions reviewed with patient as applicable. Potential red flag symptoms discussed with the patient. Reviewed appropriate action plan to take if red flag symptoms occur. Patient agreeable to treatment plan. During this patient visit I have spent approximately 20 minutes in counseling regarding treatment options, medications, test results, and coordinating care. Kacy Berumen APRN.CNP documented in this encounter [facility] 12-28-2022 History of Present illness Narrative Cardiology Subsequent Encounter Clinic Note Name: Val Herbert : 1945 CC: HFrEF Active Issues: 77-year-old female with a medical history of diabetes, neuropathy, hypertension, hyperlipidemia who was first seen at [facility] January 29, 2022 with shortness of breath that at that time was attributed to pneumonia. Creatinine was elevated between 1.9-2.2. Carries a diagnosis of moderate COPD and uses 2 L of oxygen at night. Cardiac issues include: ACC/AHA stage C HFrEF -Echocardiogram dated January 29, 2022 showed reduced EF to 30-35%. -On metoprolol succinate 50 mg. Underwent dual-chamber implantable ICD October 03, 2022. Currently the patient notes that her shortness of breath is largely at baseline. Denies any orthopnea/PND. Takes Lasix as needed for lower extremity edema.. Denies any clear exertional angina. Notably has chronic kidney disease with baseline creatinine 1.9-2.2. Follows with outside hospital metal cleaner. Echocardiogram January 2022: CONCLUSIONS: 1. Left ventricular systolic function is severely decreased with a 30-35% estimated ejection fraction. 2. There is global hypokinesis of the left ventricle with minor regional variations. 3. Moderate mitral valve regurgitation. 4. No other echocardiograms available for comparison Past Medical History Past Medical History: Diagnosis Date CHF (congestive heart failure) ([facility]) COPD (chronic obstructive pulmonary disease) ([facility]) Past Surgical History Past Surgical History: Procedure Laterality Date CARDIAC DEFIBRILLATOR PLACEMENT Medications Current Outpatient Medications on File Prior to Visit Medication Sig Dispense Refill BD Ultra-Fine Orig Pen Needle 29 gauge x 1/2 needle calcitriol (Rocaltrol) 0.5 mcg capsule Take 1 capsule (0.5 mcg) by mouth 3 (three) times a week. clotrimazole (Lotrimin) 1 % cream Apply topically 2 times a day. docusate sodium (Colace) 100 mg capsule Take 1 capsule (100 mg) by mouth once daily. epoetin zari (Epogen) 10,000 unit/mL injection Inject 1.3 mL (13,000 Units) under the skin see administration instructions. EVERY 28 DAYS furosemide (Lasix) 20 mg tablet Take 1 tablet (20 mg) by mouth once daily. May also take one tab po daily PRN gabapentin (Neurontin) 300 mg capsule Take 1 capsule (300 mg) by mouth 2 times a day. insulin lispro (HumaLOG KwikPen Insulin) 100 unit/mL injection SLIDING SCALE Lactobacillus acidophilus (PROBIOTIC ACIDOPHILUS ORAL) Take 1 tablet by mouth once daily. lidocaine 4 % patch Place 1 patch on the skin once daily. sennosides (Senokot) 8.6 mg tablet Take 1 tablet (8.6 mg) by mouth once daily at bedtime. simvastatin (Zocor) 40 mg tablet Take 1 tablet (40 mg) by mouth once daily. Trelegy Ellipta 100-62.5-25 mcg blister with device Inhale 1 puff once daily. Rinse mouth out with h20 after each use venlafaxine XR (Effexor-XR) 37.5 mg 24 hr capsule Take 1 capsule (37.5 mg) by mouth once daily. Take with food vit C/E/cuperic/zinc/lutein (PRESERVISION LUTEIN ORAL) Take by mouth. Preservision/lutein oral capsule. Take as directed [DISCONTINUED] metoprolol succinate XL (Toprol-XL) 25 mg 24 hr tablet [DISCONTINUED] acetaminophen (TylenoL) 325 mg tablet Take 2 tablets (650 mg) by mouth every 8 hours if needed (PAIN). [DISCONTINUED] albuterol 2.5 mg /3 mL (0.083 %) nebulizer solution Inhale 3 mL every 4 hours if needed for shortness of breath. [DISCONTINUED] amoxicillin (Amoxil) 500 mg capsule Take 1 capsule (500 mg) by mouth twice a day. [DISCONTINUED] atorvastatin (Lipitor) 20 mg tablet Take 1 tablet (20 mg) by mouth once daily. [DISCONTINUED] cephalexin (Keflex) 500 mg capsule Take 1 capsule (500 mg) by mouth 3 times a day. [DISCONTINUED] cyclobenzaprine (Flexeril) 5 mg tablet Take 1 tablet (5 mg) by mouth every 8 hours if needed for muscle spasms. [DISCONTINUED] docusate sodium (Colace) 50 mg capsule Take by mouth. [DISCONTINUED] erythromycin base (E-Mycin) 500 mg tablet Take 1 tablet (500 mg) by mouth every 12 hours. [DISCONTINUED] gabapentin (Neurontin) 300 mg capsule Take 1 capsule (300 mg) by mouth 3 times a day. [DISCONTINUED] glimepiride (Amaryl) 4 mg tablet [DISCONTINUED] hydrALAZINE (Apresoline) 25 mg tablet [DISCONTINUED] Lantus Solostar U-100 Insulin 100 unit/mL (3 mL) pen Inject 40 Units under the skin once daily at bedtime. [DISCONTINUED] lidocaine (Lidoderm) 5 % patch Place on the skin. Apply as directed [DISCONTINUED] losartan (Cozaar) 50 mg tablet [DISCONTINUED] magnesium hydroxide (Milk of Magnesia) 400 mg/5 mL suspension Take 30 mL by mouth once daily as needed for constipation. [DISCONTINUED] melatonin 10 mg capsule Take 1 capsule (10 mg) by mouth once daily at bedtime. [DISCONTINUED] melatonin 5 mg tablet Take by mouth. Take as directed [DISCONTINUED] metoprolol succinate XL (Toprol-XL) 50 mg 24 hr tablet Take 1 tablet (50 mg) by mouth once daily. [DISCONTINUED] oxyCODONE (Roxicodone) 5 mg immediate release tablet [DISCONTINUED] pioglitazone (Actos) 30 mg tablet [DISCONTINUED] predniSONE (Deltasone) 20 mg tablet [DISCONTINUED] traMADol (Ultram) 50 mg tablet Take 1 tablet (50 mg) by mouth every 8 hours if needed (PAIN). No current facility-administered medications on file prior to visit. Allergies Allergies Allergen Reactions Levofloxacin Rash Sulfacetamide Sodium Rash Social History Social History Tobacco Use Smoking status: Never Passive exposure: Current Smokeless tobacco: Never Substance Use Topics Alcohol use: Never Drug use: Never Family History Family History Problem Relation Name Age of Onset Cancer Mother Stroke Father Coronary artery disease Sister Stroke Brother Diabetes Son Cancer Son Physical Examination Vitals: BP 112/66 Pulse 89 Ht 1.6 m (5' 3 ) Wt 115 kg (254 lb 8 oz) SpO2 95% BMI 45.08 kg/m General: awake, alert and oriented. No acute distress. Skin: Skin is warm, dry and intact without rashes or lesions. Appropriate color for ethnicity. Nail beds pink with no cyanosis or clubbing HEENT: normocephalic, atraumatic; conjunctivae are clear without exudates or hemorrhage. Sclera is non-icteric. Eyelids are normal in appearance without swelling or lesions. Hearing intact. Nares are patent bilaterally. Moist mucous membranes. Cardiovascular: Regular. No murmurs, gallops, or rubs are auscultated. S1 and S2 are heard and are of normal intensity. No JVD, no carotid bruits Respiratory: Thorax symmetric. CTAB, breath sounds vesicular. No crackles, wheezes or ronchi. Gastrointestinal: soft, non-distended, BS + x 4 Genitourinary: exam deferred Musculoskeletal: moves all extremities Extremities: pulses palpable bilaterally; no swelling or erythema; no edema Neurological: alert & oriented x 3; no focal deficits Psychiatric: appropriate mood and affect Labs/Imaging/Procedures Lab Results Component Value Date HGB 12.0 09/28/2022 HGB 8.7 (L) 01/29/2022 HGB 9.4 (L) 01/28/2022 PLT 199 09/28/2022 WBC 8.2 09/28/2022 NA 134 (L) 12/12/2022 K 4.4 12/12/2022 CREATININE 2.09 (H) 12/12/2022 CREATININE 2.38 (H) 10/09/2022 CREATININE 2.34 (H) 09/28/2022 BUN 33 (H) 12/12/2022 CALCIUM 9.5 12/12/2022 INR 1.0 10/03/2022 BNP 309 (H) 12/12/2022 TROPHS 50 (H) 01/26/2022 TROPHS 42 (H) 01/26/2022 No echocardiogram results found for the past 12 months MUGA scan June 2022: Suggestion of bilateral ventricular enlargement with decreased global contractility and a left ventricular ejection fraction calculated to be 23%. Impression 77-year-old female with a medical history of diabetes, neuropathy, hypertension, hyperlipidemia who was first seen at [facility] January 29, 2022 with shortness of breath that at that time was attributed to pneumonia. Creatinine was elevated between 1.9-2.2. Carries a diagnosis of moderate COPD and uses 2 L of oxygen at night. Cardiac issues include: ACC/AHA stage C HFrEF -Echocardiogram dated January 29, 2022 showed reduced EF to 30-35%. -On metoprolol succinate 50 mg. Underwent dual-chamber implantable ICD October 03, 2022. Plan -Overall appears to be warm and dry on exam. Her shortness of breath is likely attributable to age/deconditioning and her diagnosis of COPD in addition to heart failure. -Limited in uptitration of GDMT by her renal function. Will add hydralazine 25 mg 3 times daily. RTC 6 months Tamika Jennings MD Advanced Heart Failure/Transplant Cardiology Cardio-Oncology [facility] documented in this encounter [facility] Work Phone: 12-07-2022 Note HNO ID: [id number] Author: Kacy Berumen APRN.[employer] WELL [employer]ER Service: ? Author Type: Nurse Practitioner Type: Progress Notes Filed: 12/07/2022 9:15 AM Note Text: Patient checked in with 4 minutes left of appointment time. She declined to wait or schedule for later time today. Left without being seen Kacy Berumen APRN.CNP [facility] 12-07-2022 History of Present illness Narrative Patient checked in with 4 minutes left of appointment time. She declined to wait or schedule for later time today. Left without being seen Kacy Berumen APRN.CNP documented in this encounter [facility] 11-28-2022 Miscellaneous Notes Terese- terell [facility] pharmacist is asking for clarification on instructions for the furosemide 20 mg take an extra 20 mg daily as needed. Please phone [phone] with clarification. Reference # [id number]. Asking provider to phone with clarification within 24 hours. documented in this encounter [facility] 11-21-2022 Miscellaneous Notes Last office visit: 08/15/22 Next appointment scheduled: 12/07/22 Last labs: 08/15/22 noted as external lab 09/06/22 Please verify amount dispensed. Patient has been identified by name and date of : Yes Requested Prescriptions Pending Prescriptions Disp Refills furosemide (LASIX) 20 mg tablet 30 tablet 2 Sig: Take an extra 20 mg daily as needed RX INSTRUCTIONS: Patient requesting a call when RX is approved and sent to the [facility] pharmacy. Lou Rodriguez documented in this encounter [facility] 10-04-2022 Note Send Summary: Discharge Summary Providers: Provider RoleProvider Name Claus Zendejas Shashank PrimaryVelasquez, Victor D Note Recipients: Discharge: Summary: Admission Date: .03-Oct-2022 11:28:00 Discharge Date: 04-Oct-2022 Attending Physician at Discharge: Claus Browne Admission Reason: HFrEF, LBBB Final Discharge Diagnoses: Status post implantation of automatic cardioverter/defibrillator (AICD) Procedures: Date: 03-Oct-2022 19:58:00 Procedure Name: Dual-chamber implantable cardioverter defibrillator placement, attempted coronary sinus lead implant Condition at Discharge: Satisfactory Disposition at Discharge: .Home Vital Signs: T PRBPMAPSpO2 [id number]/089848% Date/Time10/04 12: 12: 4: 12: 12: 12:51 Range(35.6C - 36.9C ) (88 - 95 ) (16 - 18 ) (116 - 137 )/ (58 - 72 ) (82 - 99 ) (91% - 98% ) Highest temp of 36.9 C was recorded at 10/03 19:54 Date: Weight/Scale Type:Height: 03-Oct-2022 18:09752 kg / .9 cm Physical Exam: Constitutional: Alert and cooperative Eyes: Clear sclera ENMT: mucous membranes moist Head/Neck: No JVD, trachea midline Respiratory/Thorax: Patent airways, diminished bilaterally, thorax symmetric. Cardiovascular: Regular rate and rhythm, no murmurs, + pulses of the extremities, normal S1 and S2 Gastrointestinal: Obese, soft, non-tender Musculoskeletal: ROM intact, normal strength Extremities: no cyanosis, bilateral LE edema Neurological: alert and oriented x3 Psychological: Appropriate mood and behavior Skin: Warm and dry. Left chest incision covered with DRSG D+I, no hematoma, no ecchymosis, no erythema. Hospital Course: This is a 77 year old female with a PMH significant for DM, HTN, CKD stage 3, HLD and HFrEF. The patient has severely decreased LVEF of 23%, MUGA scan June 2022. She also has a LBBB of 130ms. The patient presented yesterday, 10/03/22 for HOT ROOM ATTENDANT-D insertion with Dr. Browne for primary prevention. PMH: DM, HTN, HLD, CKD stage 3, HFrEF, neuropathy, depression, anxiety, morbid obesity PSH: ankle history x2, appendectomy, hysterectomy, knee replacement x2, shoulder surgery, tonsillectomy, ureteroplasty Family history: Mother-CA. Father-stroke. Son-DM. Sister-CAD, [place]. Brother-stroke. Social history: Never a smoker, denies alcohol, caffeine and illicit drug use 10/04/22: s/p dual-chamber implantable cardioverter defibrillator placement with Dr. Browne 10/03/22. Upon exam this AM patient is sitting in bed in no apparent distress. Device interrogation completed this AM - okay per Dr. Browne. CXR completed this AM shows no evidence on pneumothorax per radiology impression. Left chest incision covered with DRSG D+I, no hematoma, no ecchymosis, no erythema. Patient denies any fevers, chills, diaphoresis, chest pain, palpitations, shortness of breath, back pain, abdominal pain, nausea, vomiting, headache, numbness or tingling. Patient will be discharged home today. HFrEF s/p dual-chamber ICD placement - discharge home today - patient to follow up in one week for incision check - scheduled 10/11/22 - Keflex 500mg BID for 7 days - continue home gabapentin, venlafaxine, Humalog, Lantus simvastatin, metoprolol succinate, furosemide, epogen, colace, senna Patient and plan discussed with Dr. Browne. Discharge Information: and Continuing Care: Lab Results - Pending: None Radiology Results - Pending: None Discharge Instructions: Call Provider If (Homegoing Patients): Breathing harder than normal or having retractions. Fever of 100.4 F (38 C) or higher. Chills. Drinking less than normal. Urinating less than normal, over 1 day. Acting very sleepy and difficult to awaken. Vomiting (throwing up) and not able to eat or drink for 12 hours. Any new concerning symptoms. Other Clinician Instructions: Other Instructions: Other Clinician InstructionsPatient Instructions: - Please do not lift left arm above shoulder level for 4-5 weeks - No repetitive motion or lifting heavy weight for 4-5 weeks - No driving, alcohol or making legal decisions for 24 hours. - Keep wound completely dry for 7 days; may shower but keep bandage as dry as possible. - No soaking in hot tubs or baths for 10 days. May sponge bath - Keep bandage on incision until seen in the office in 1 week. - Allow steri strips underneath to fall off naturally. - Please call our office if you notice any discharge or swelling around incision or fever. - Please follow up for incision check 10/11/22 at 11:00 AM as scheduled - [facility] [address] Floor Cardio, [address] [place] [address] - . Discharge Medications: Home Medication calcitriol 0.5 mcg oral capsule - 1 cap(s) orally once a day Colace 100 mg oral capsule - 1 cap(s) orally once a day furosemide 20 mg oral tablet - 1 tab(s) orally once a da (more content not included)... [facility] 10-04-2022 Hospital course Narrative Send Summary: Discharge Summary Providers: Provider Role Provider Name Attending Claus Browne Referring Claus Browne Primary Neel Turpin Note Recipients: Discharge: Summary: Admission Date: .03-Oct-2022 11:28:00 Discharge Date: 04-Oct-2022 Attending Physician at Discharge: Claus Browne Admission Reason: HFrEF, LBBB Final Discharge Diagnoses: Status post implantation of automatic cardioverter/defibrillator (AICD) Procedures: Date: 03-Oct-2022 19:58:00 Procedure Name: Dual-chamber implantable cardioverter defibrillator placement, attempted coronary sinus lead implant Condition at Discharge: Satisfactory Disposition at Discharge: .Home Vital Signs: T P R BP MAP SpO2 Value 35.6 95 18 137/72 99 93% Date/Time 10/04 12:51 10/04 12:51 10/04 4:24 10/04 12:51 10/04 12:51 10/04 12:51 Range (35.6C - 36.9C ) (88 - 95 ) (16 - 18 ) (116 - 137 )/ (58 - 72 ) (82 - 99 ) (91% - 98% ) Highest temp of 36.9 C was recorded at 10/03 19:54 Date: Weight/Scale Type: Height: 03-Oct-2022 18:12 118 kg / standing 159.9 cm Physical Exam: Constitutional: Alert and cooperative Eyes: Clear sclera ENMT: mucous membranes moist Head/Neck: No JVD, trachea midline Respiratory/Thorax: Patent airways, diminished bilaterally, thorax symmetric. Cardiovascular: Regular rate and rhythm, no murmurs, + pulses of the extremities, normal S1 and S2 Gastrointestinal: Obese, soft, non-tender Musculoskeletal: ROM intact, normal strength Extremities: no cyanosis, bilateral LE edema Neurological: alert and oriented x3 Psychological: Appropriate mood and behavior Skin: Warm and dry. Left chest incision covered with DRSG D+I, no hematoma, no ecchymosis, no erythema. Hospital Course: This is a 77 year old female with a PMH significant for DM, HTN, CKD stage 3, HLD and HFrEF. The patient has severely decreased LVEF of 23%, MUGA scan June 2022. She also has a LBBB of 130ms. The patient presented yesterday, 10/03/22 for HOT ROOM ATTENDANT-D insertion with Dr. Browne for primary prevention. PMH: DM, HTN, HLD, CKD stage 3, HFrEF, neuropathy, depression, anxiety, morbid obesity PSH: ankle history x2, appendectomy, hysterectomy, knee replacement x2, shoulder surgery, tonsillectomy, ureteroplasty Family history: Mother-CA. Father-stroke. Son-DM. Sister-CAD, [place]. Brother-stroke. Social history: Never a smoker, denies alcohol, caffeine and illicit drug use 10/04/22: s/p dual-chamber implantable cardioverter defibrillator placement with Dr. Browne 10/03/22. Upon exam this AM patient is sitting in bed in no apparent distress. Device interrogation completed this AM - okay per Dr. Browne. CXR completed this AM shows no evidence on pneumothorax per radiology impression. Left chest incision covered with DRSG D+I, no hematoma, no ecchymosis, no erythema. Patient denies any fevers, chills, diaphoresis, chest pain, palpitations, shortness of breath, back pain, abdominal pain, nausea, vomiting, headache, numbness or tingling. Patient will be discharged home today. HFrEF s/p dual-chamber ICD placement - discharge home today - patient to follow up in one week for incision check - scheduled 10/11/22 - Keflex 500mg BID for 7 days - continue home gabapentin, venlafaxine, Humalog, Lantus simvastatin, metoprolol succinate, furosemide, epogen, colace, senna Patient and plan discussed with Dr. Browne. Discharge Information: and Continuing Care: Lab Results - Pending: None Radiology Results - Pending: None Discharge Instructions: Call Provider If (Homegoing Patients): Breathing harder than normal or having retractions. Fever of 100.4 F (38 C) or higher. Chills. Drinking less than normal. Urinating less than normal, over 1 day. Acting very sleepy and difficult to awaken. Vomiting (throwing up) and not able to eat or drink for 12 hours. Any new concerning symptoms. Other Clinician Instructions: Other Instructions: Other Clinician Instructions Patient Instructions: - Please do not lift left arm above shoulder level for 4-5 weeks - No repetitive motion or lifting heavy weight for 4-5 weeks - No driving, alcohol or making legal decisions for 24 hours. - Keep wound completely dry for 7 days; may shower but keep bandage as dry as possible. - No soaking in hot tubs or baths for 10 days. May sponge bath - Keep bandage on incision until seen in the office in 1 week. - Allow steri strips underneath to fall off naturally. - Please call our office if you notice any discharge or swelling around incision or fever. - Please follow up for incision check 10/11/22 at 11:00 AM as scheduled - [facility] [address] Floor Cardio, [address] [place] [address] - . Discharge Medications: Home Medication calcitriol 0.5 mcg oral capsule - 1 cap(s) orally once a day Colace 100 mg oral capsule - 1 cap(s) orally once a day furosemide 20 mg oral tablet - 1 tab(s) orally once a day Senna 8.6 mg oral tablet - 1 tab(s) orally once a day (at bedtime) HumaLOG KwikPen 100 units/mL injectable solution - sliding scale Epogen 10,000 units/mL preservative-free injectable solution - 1.3 milliliter(s) injectable every 28 days simvastatin 40 mg oral tablet - 1 tab(s) orally once a day (at bedtime) gabapentin 300 mg oral capsule - 1 cap(s) orally 2 times a day venlafaxine 37.5 mg oral tablet - 1 tab(s) orally once a day PreserVision AREDS Lutein oral capsule - 1 cap(s) orally once a day Lantus Solostar Pen 100 units/mL subcutaneous solution - 30 unit(s) subcutaneous once a day (at bedtime) metoprolol succinate 25 mg oral tablet, extended release - 1 tab(s) orally once a day cephalexin 500 mg oral capsule - 1 cap(s) orally 2 times a day PRN Medication DNR Status: Code Status Code Status order at time of discharge: Full Code Electronic Signatures: Caroline Diaz (RETAIL FIELD SUPERVISOR-OIL WELL SHOOTER) (Signed 04-Oct-2022 13:29) Authored: Send Summary, Summary Content, Ongoing Care, DNR Status, Note Completion Last Updated: 04-Oct-2022 13:29 by Caroline Diaz (RETAIL FIELD SUPERVISOR-OIL WELL SHOOTER) documented in this encounter [facility] Work Phone: 10-03-2022 Note Pre-procedure Verifi cation and Time Out: Pre-Procedure Verification and Time Out: Procedure Locationprocedure area HUDDLE - Pre-procedure Verificationcompleted TIME OUT - Final Verificationcompleted immediately prior to procedure start DEBRIEFcompleted General Information: Anesthesia Critical Care: Non-Anesthesia Date/Time of Procedure: 03-Oct-2022 13:30 Indication(s)/Pre Procedure Diagnoses: Heart failure reduced EF, left bundle branch block greater than 130 ms Post-Procedure Diagnosis: Heart failure reduced EF, left bundle branch block greater than 130 ms Procedure Name: Dual-chamber implantable cardioverter defibrillator placement, attempted coronary sinus lead implant Findings: grossly normal anatomy Procedure performed by: ut Brancher(s): none Estimated Blood Loss (mL): none Specimen: no Informed Consent: written consent obtained Procedure Details: Procedure Details: The patient was taken to EP lab where she was monitored throughout all procedure. The area of the left pectoral deltoid and subclavian area was sterilely prepped and draped in the usual manner. Using 50/50mix of 0.25% marcaine and 1% lidocaine, the area of the left pectoral deltoid region and subclavian area was then fully anesthetized. Using a #15 scalpel blade, a 5 cm horizontal incision was made in the left pecto-deltoid groove, where the skin was dissected and blunted on to the pectoralis major muscle. A peripheral venogram was obtained using the left arm peripheral IV Access. The left extrathoracic subclavian vein was accessed using a modified seldinger technique using a 4F micropuncture kit. Once the vein was cannulated, and guidewire in place, the micro-puncture sheath was then introduced, and regular J wire was introduced. A second access was obtained again using a Seldinger technique using a 4 Lao micropuncture kit. A regular J-wire was introduced via the micropuncture sheath. A pulse generator pocket was formed. Then a 9F sheath was introduced over the other J wire, a second J-wire was introduced through the sheath and the sheath was removed. This allowed for retention of the access with one of the J-wire's. The 9F sheath was then introduced over one of the J-wire's from this pair. Under fluoroscopy, the RV lead was placed into the appropriate location and deployment for the lead fixation mechanism was confirmed under fluoroscopy. Lead measurement tests, including pacing and sensing thresholds and impedances were performed. Subsquently the same process was repeated for the RA lead. Over one the J wire a 9F spiltable sheath was introduced; through it a attain select straight sheath and a EP XT octapolar catheter, we intubated the CS. Over the octapolar the outer sheath was introduced into the CS. The octapolar was removed at the point, and a balloon tipped catheter was introduced through the sheath. A CS venogram was performed using minimal contrast to avoid excessive contrast use given patient's existing nephropathy. At this point we noted that the main branch vessel had a significant area of stenosis around the valve a few since right of the branch point of the vein of Ruperto. We then tried introducing the canted CS lead over a whisper .014 wire however the wire could be advanced to a appropriate anterolateral branch but the lead could not be advanced over the wire due to the significant area of stenosis which would constantly push back the outer sheath. At this point I took out the lead in the retaining CS access with the outer sheath. Through the outer sheath we then introduced an inner vein selector over a .35 Glidewire. Again the Glidewire easily was able to advance to the target vessel however the inner vein selector could not be advanced past the area of stenosis. Eventually we were able to advance the intervention selective posterior stenosis and the Glidewire and dilator were removed. At this point we again attempted to advance the lead over a whisper wire but there was significant mobility of the wire which concerned me regarding the location of the wire whether was intraluminal or epicardial. Lead and whisper wire were removed and a 2 cc contrast injection was used through the outer sheath, no epicardial contra staining was noted and given the significant stenosis, patient's increasing discomfort due to back pain despite heavy sedation, inability to use more contrast to preserve renal function in the setting of CKD we opted to abort CS lead implantation. The existing leads were anchored to the underlying tissue by tying knots with nonresorbable sutures along the suture sleeve. The pulse generator was then connected to the leads, the entire system was secured. The pocket was irrigated and cleansed. Anti-biotic pouch was used. The subcutaneous tissue was then closed in 3 layers with #2-0, #3-0 and #4-0 Vicryl suture using a subcuticular uninterrupt (more content not included)... [facility] 10-03-2022 Note History of Present I llness: History Present Illness Reason for surgery: HFrEF, LBBB HPI: This is a 77 year old female with a PMH significant for DM, HTN, CKD stage 3, HLD and HFrEF. The patient has severely decreased LVEF of 23%, MUGA scan June 2022. She also has a LBBB of 130ms. The patient presents today, 10/03/22 for HOT ROOM ATTENDANT-D insertion with Dr. Browne for primary prevention. PMH: DM, HTN, HLD, CKD stage 3, HFrEF, neuropathy, depression, anxiety, morbid obesity PSH: ankle history x2, appendectomy, hysterectomy, knee replacement x2, shoulder surgery, tonsillectomy, ureteroplasty Family history: Mother-CA. Father-stroke. Son-DM. Sister-CAD, [place]. Brother-stroke. Social history: Never a smoker, denies alcohol, caffeine and illicit drug use Allergies: Allergies: levofloxacin: Rash Sulfacetamide Sodium: Rash Home Medication Review: Home Medications Reviewed: yes Impression/Procedure: Impression and Planned Procedure: HOT ROOM ATTENDANT-D device insertion Review of Systems: Review of Systems Constitutional: NEGATIVE: Fever, Chills, Anorexia, Weight Loss, Malaise Eyes: NEGATIVE: Blurry Vision, Drainage, Diploplia, Redness, Vision Loss/ Change ENMT: NEGATIVE: Nasal Discharge, Nasal Congestion, Ear Pain, Mouth Pain, Throat Pain Respiratory: NEGATIVE: Dry Cough, Productive Cough, Hemoptysis, Wheezing, Shortness of Breath Cardiac: POSITIVE: Dyspnea on Exertion; NEGATIVE: Chest Pain, Orthopnea, Palpitations, Syncope Gastrointestinal: NEGATIVE: Nausea, Vomiting, Diarrhea, Constipation, Abdominal Pain Genitourinary: NEGATIVE: Discharge, Dysuria, Flank Pain, Frequency, Hematuria Musculoskeletal: POSITIVE: Swelling; NEGATIVE: Decreased ROM, Pain, Stiffness, Weakness Neurological: NEGATIVE: Dizziness, Confusion, Headache, Seizures, Syncope Psychiatric: NEGATIVE: Mood Changes, Anxiety, Hallucinations, Sleep Changes, Suicidal Ideas Skin: NEGATIVE: Mass, Pain, Pruritus, Rash, Ulcer Endocrine: NEGATIVE: Heat Intolerance, Cold Intolerance, Sweat, Polyuria, Thirst Hematologic/Lymph: NEGATIVE: Anemia, Bruising, Easy Bleeding, Night Sweats, Petechiae Allergic/Immunologic: NEGATIVE: Anaphylaxis, Itchy/ Teary Eyes, Itching, Sneezing, Swelling Physical Exam by System Constitutional: alert and cooperative Eyes: clear sclera ENMT: mucous membranes moist Head/Neck: No JVD, trachea midline Respiratory/Thorax: Patent airways, diminished bilaterally, thorax symmetric Cardiovascular: Regular, rate and rhythm, no murmurs, + pulses of the extremities, normal S1 and S2 Gastrointestinal: Nondistended, soft, non-tender, no masses palpable, no organomegaly, +BS Musculoskeletal: ROM intact, no joint swelling, normal strength Extremities: no cyanosis, bilateral LE edema Neurological: alert and oriented x3 Psychological: Appropriate mood and behavior Skin: Warm and dry Airway/Sedation Assessment Mouth Opening OKyes Neck Flexibility OKyes Loose Teethno Oropharyngeal Classification: Image has been removed. Oropharyngeal ClassificationClass III ASA PS ClassificationASA III Sedation Planmoderate sedation Consent: COVID-19 Consent COVID-19 Risk ConsentSurgeon has reviewed arnold risks related to the risk of taye COVID-19 and if they contract COVID-19 what the risks are. Electronic Signatures for Addendum Section: Claus Browne) (Signed Addendum 03-Oct-2022 13:28) I discussed with the patient and her son in detail about the use of small amount of contrast and my concerns given the renal function. We will plan to use minimal contrast for the venogram and if there is difficulty obtaining a CS lead then we would do a dual-chamber ICD with plans for potential upgrade down the line to prevent excessive contrast use during 1 procedure. Patient and her son agreed and stated that they understood the risks. Electronic Signatures: Caroline Diaz (RETAIL FIELD SUPERVISOR-OIL WELL SHOOTER) (Signed 03-Oct-2022 12:28) Authored: History of Present Illness, Allergies, Home Medication Review, Impression/Procedure, Review of Systems, Physical Exam, Consent, Note Completion Claus Browne) (Signed 03-Oct-2022 13:28) Co-Signer: History of Present Illness, Allergies, Home Medication Review, Impression/Procedure, Review of Systems, Physical Exam, Consent, Note Completion Last Updated: 03-Oct-2022 13:28 by Claus Browne) [facility] 10-03-2022 History and physical note Images from the original note were not included. History of Present Illness: History Present Illness Reason for surgery: HFrEF, LBBB HPI: This is a 77 year old female with a PMH significant for DM, HTN, CKD stage 3, HLD and HFrEF. The patient has severely decreased LVEF of 23%, MUGA scan June 2022. She also has a LBBB of 130ms. The patient presents today, 10/03/22 for HOT ROOM ATTENDANT-D insertion with Dr. Browne for primary prevention. PMH: DM, HTN, HLD, CKD stage 3, HFrEF, neuropathy, depression, anxiety, morbid obesity PSH: ankle history x2, appendectomy, hysterectomy, knee replacement x2, shoulder surgery, tonsillectomy, ureteroplasty Family history: Mother-CA. Father-stroke. Son-DM. Sister-CAD, [place]. Brother-stroke. Social history: Never a smoker, denies alcohol, caffeine and illicit drug use Allergies: Allergies: levofloxacin : Rash Sulfacetamide Sodium: Rash Home Medication Review: Home Medications Reviewed: yes Impression/Procedure: Impression and Planned Procedure: HOT ROOM ATTENDANT-D device insertion Review of Systems: Review of Systems Constitutional: NEGATIVE: Fever, Chills, Anorexia, Weight Loss, Malaise Eyes: NEGATIVE: Blurry Vision, Drainage, Diploplia, Redness, Vision Loss/ Change ENMT: NEGATIVE: Nasal Discharge, Nasal Congestion, Ear Pain, Mouth Pain, Throat Pain Respiratory: NEGATIVE: Dry Cough, Productive Cough, Hemoptysis, Wheezing, Shortness of Breath Cardiac: POSITIVE: Dyspnea on Exertion; NEGATIVE: Chest Pain, Orthopnea, Palpitations, Syncope Gastrointestinal: NEGATIVE: Nausea, Vomiting, Diarrhea, Constipation, Abdominal Pain Genitourinary: NEGATIVE: Discharge, Dysuria, Flank Pain, Frequency, Hematuria Musculoskeletal: POSITIVE: Swelling; NEGATIVE: Decreased ROM, Pain, Stiffness, Weakness Neurological: NEGATIVE: Dizziness, Confusion, Headache, Seizures, Syncope Psychiatric: NEGATIVE: Mood Changes, Anxiety, Hallucinations, Sleep Changes, Suicidal Ideas Skin: NEGATIVE: Mass, Pain, Pruritus, Rash, Ulcer Endocrine: NEGATIVE: Heat Intolerance, Cold Intolerance, Sweat, Polyuria, Thirst Hematologic/Lymph: NEGATIVE: Anemia, Bruising, Easy Bleeding, Night Sweats, Petechiae Allergic/Immunologic: NEGATIVE: Anaphylaxis, Itchy/ Teary Eyes, Itching, Sneezing, Swelling Physical Exam by System Constitutional: alert and cooperative Eyes: clear sclera ENMT: mucous membranes moist Head/Neck: No JVD, trachea midline Respiratory/Thorax: Patent airways, diminished bilaterally, thorax symmetric Cardiovascular: Regular, rate and rhythm, no murmurs, + pulses of the extremities, normal S1 and S2 Gastrointestinal: Nondistended, soft, non-tender, no masses palpable, no organomegaly, +BS Musculoskeletal: ROM intact, no joint swelling, normal strength Extremities: no cyanosis, bilateral LE edema Neurological: alert and oriented x3 Psychological: Appropriate mood and behavior Skin: Warm and dry Airway/Sedation Assessment Mouth Opening OK yes Neck Flexibility OK yes Loose Teeth no Oropharyngeal Classification: Oropharyngeal Classification Class III ASA PS Classification ASA III Sedation Plan moderate sedation Consent: COVID-19 Consent COVID-19 Risk Consent Surgeon has reviewed arnold risks related to the risk of taye COVID-19 and if they contract COVID-19 what the risks are. Electronic Signatures for Addendum Section: Claus Browne) (Signed Addendum 03-Oct-2022 13:28) I discussed with the patient and her son in detail about the use of small amount of contrast and my concerns given the renal function. We will plan to use minimal contrast for the venogram and if there is difficulty obtaining a CS lead then we would do a dual-chamber ICD with plans for potential upgrade down the line to prevent excessive contrast use during 1 procedure. Patient and her son agreed and stated that they understood the risks. Electronic Signatures: Caroline DiazRETAIL FIELD SUPERVISOR-OIL WELL SHOOTER) (Signed 03-Oct-2022 12:28) Authored: History of Present Illness, Allergies, Home Medication Review, Impression/Procedure, Review of Systems, Physical Exam, Consent, Note Completion Claus Browne) (Signed 03-Oct-2022 13:28) Co-Signer: History of Present Illness, Allergies, Home Medication Review, Impression/Procedure, Review of Systems, Physical Exam, Consent, Note Completion Last Updated: 03-Oct-2022 13:28 by Claus Browne) [facility] Work Phone: 10-03-2022 History and physical note Images from the original note were not included. History of Present Illness: History Present Illness Reason for surgery: HFrEF, LBBB HPI: This is a 77 year old female with a PMH significant for DM, HTN, CKD stage 3, HLD and HFrEF. The patient has severely decreased LVEF of 23%, MUGA scan June 2022. She also has a LBBB of 130ms. The patient presents today, 10/03/22 for HOT ROOM ATTENDANT-D insertion with Dr. Browne for primary prevention. PMH: DM, HTN, HLD, CKD stage 3, HFrEF, neuropathy, depression, anxiety, morbid obesity PSH: ankle history x2, appendectomy, hysterectomy, knee replacement x2, shoulder surgery, tonsillectomy, ureteroplasty Family history: Mother-CA. Father-stroke. Son-DM. Sister-CAD, [place]. Brother-stroke. Social history: Never a smoker, denies alcohol, caffeine and illicit drug use Allergies: Allergies: levofloxacin : Rash Sulfacetamide Sodium: Rash Home Medication Review: Home Medications Reviewed: yes Impression/Procedure: Impression and Planned Procedure: HOT ROOM ATTENDANT-D device insertion Review of Systems: Review of Systems Constitutional: NEGATIVE: Fever, Chills, Anorexia, Weight Loss, Malaise Eyes: NEGATIVE: Blurry Vision, Drainage, Diploplia, Redness, Vision Loss/ Change ENMT: NEGATIVE: Nasal Discharge, Nasal Congestion, Ear Pain, Mouth Pain, Throat Pain Respiratory: NEGATIVE: Dry Cough, Productive Cough, Hemoptysis, Wheezing, Shortness of Breath Cardiac: POSITIVE: Dyspnea on Exertion; NEGATIVE: Chest Pain, Orthopnea, Palpitations, Syncope Gastrointestinal: NEGATIVE: Nausea, Vomiting, Diarrhea, Constipation, Abdominal Pain Genitourinary: NEGATIVE: Discharge, Dysuria, Flank Pain, Frequency, Hematuria Musculoskeletal: POSITIVE: Swelling; NEGATIVE: Decreased ROM, Pain, Stiffness, Weakness Neurological: NEGATIVE: Dizziness, Confusion, Headache, Seizures, Syncope Psychiatric: NEGATIVE: Mood Changes, Anxiety, Hallucinations, Sleep Changes, Suicidal Ideas Skin: NEGATIVE: Mass, Pain, Pruritus, Rash, Ulcer Endocrine: NEGATIVE: Heat Intolerance, Cold Intolerance, Sweat, Polyuria, Thirst Hematologic/Lymph: NEGATIVE: Anemia, Bruising, Easy Bleeding, Night Sweats, Petechiae Allergic/Immunologic: NEGATIVE: Anaphylaxis, Itchy/ Teary Eyes, Itching, Sneezing, Swelling Physical Exam by System Constitutional: alert and cooperative Eyes: clear sclera ENMT: mucous membranes moist Head/Neck: No JVD, trachea midline Respiratory/Thorax: Patent airways, diminished bilaterally, thorax symmetric Cardiovascular: Regular, rate and rhythm, no murmurs, + pulses of the extremities, normal S1 and S2 Gastrointestinal: Nondistended, soft, non-tender, no masses palpable, no organomegaly, +BS Musculoskeletal: ROM intact, no joint swelling, normal strength Extremities: no cyanosis, bilateral LE edema Neurological: alert and oriented x3 Psychological: Appropriate mood and behavior Skin: Warm and dry Airway/Sedation Assessment Mouth Opening OK yes Neck Flexibility OK yes Loose Teeth no Oropharyngeal Classification: Oropharyngeal Classification Class III ASA PS Classification ASA III Sedation Plan moderate sedation Consent: COVID-19 Consent COVID-19 Risk Consent Surgeon has reviewed arnold risks related to the risk of taye COVID-19 and if they contract COVID-19 what the risks are. Electronic Signatures for Addendum Section: Claus Browne) (Signed Addendum 03-Oct-2022 13:28) I discussed with the patient and her son in detail about the use of small amount of contrast and my concerns given the renal function. We will plan to use minimal contrast for the venogram and if there is difficulty obtaining a CS lead then we would do a dual-chamber ICD with plans for potential upgrade down the line to prevent excessive contrast use during 1 procedure. Patient and her son agreed and stated that they understood the risks. Electronic Signatures: Caroline DiazRETAIL FIELD SUPERVISOR-OIL WELL SHOOTER) (Signed 03-Oct-2022 12:28) Authored: History of Present Illness, Allergies, Home Medication Review, Impression/Procedure, Review of Systems, Physical Exam, Consent, Note Completion Claus Browne) (Signed 03-Oct-2022 13:28) Co-Signer: History of Present Illness, Allergies, Home Medication Review, Impression/Procedure, Review of Systems, Physical Exam, Consent, Note Completion Last Updated: 03-Oct-2022 13:28 by Claus Browne) documented in this encounter [facility] [facility] Work Phone: documented as of this encounter (statuses as of 07/06/2021) [facility]08-09-2018 History of Past illness Narrative* Problem Noted Date Resolved Date Controlled diabetes mellitus type 1 without comp lications 10/24/2017 09/10/2018 Controlled type 2 diabetes m ellitus without complication, with long-term current use of insulin 10/09/2016 11/17/2020 Vitreous floaters of both eyes 10/09/2016 0 06/17/2017 Regular astigmatism, bilateral 10/09/2016 0 06/17/2017 Lytic lesion of bone on x-ray 09/19/2016 Overview: T 10, MRI LS spine. Nonexudative senile macular degeneration of reti na 10/20/2014 11/17/2020 Overview: Night time driving prohibited. Myopia 08/19/2014 06/17/2017 Regular astigmatism 08/19/2014 06/17/2017 Presbyopia 08/19/2014 06/17/2017 Exhausted vascular access 01/01/20142014 Lumbago 09/26/2011 06/17/2017 Macular degeneration 06/06/2011 06/17/2017 Esophagitis, unspecified 10/24/2010 016 Acute gastritis without mention of hemorrhage 08/10/2015 Diaphragmatic hernia without mention of obstruction or gangrene 10/24/2010 08/10/2015 Incisional hernia 09/22/2009 06/01/2010 Acute bronchitis 06/01/2010 Chest pain, unspecified 06/02/19 11 Cough 06/01/2010 documented as of this encounter (statuses as of 08/09/2021) [facility]08-09[facility]2018 History of Past illness Narrative* Problem Noted Date Resolved Date Controlled diabetes mellitus type 1 without comp lications 10/24/2017 09/10/2018 Controlled type 2 diabetes m ellitus without complication, with long-term current use of insulin 10/09/2016 11/17/2020 Vitreous floaters of both eyes 10/09/2016 0 06/17/2017 Regular astigmatism, bilateral 10/09/2016 0 06/17/2017 Lytic lesion of bone on x-ray 09/19/2016 Overview: T 10, MRI LS spine. Nonexudative senile macular degeneration of reti na 10/20/2014 11/17/2020 Overview: Night time driving prohibited. Myopia 08/19/2014 06/17/2017 Regular astigmatism 08/19/2014 06/17/2017 Presbyopia 08/19/2014 06/17/2017 Exhausted vascular access 01/01/20142014 Lumbago 09/26/2011 06/17/2017 Macular degeneration 06/06/2011 06/17/2017 Esophagitis, unspecified 10/24/2010 016 Acute gastritis without mention of hemorrhage 08/10/2015 Diaphragmatic hernia without mention of obstruction or gangrene 10/24/2010 08/10/2015 Incisional hernia 09/22/2009 06/01/2010 Acute bronchitis 06/01/2010 Chest pain, unspecified 06/02/19 11 Cough 06/01/2010 documented as of this encounter (statuses as of 12/04/2021) [facility]08-[facility]2018 History of Past illness Narrative* Problem Noted Date Resolved Date Controlled diabetes mellitus type 1 without comp lications 10/24/2017 09/10/2018 Controlled type 2 diabetes m ellitus without complication, with long-term current use of insulin 10/09/2016 11/17/2020 Vitreous floaters of both eyes 10/09/2016 0 06/17/2017 Regular astigmatism, bilateral 10/09/2016 0 06/17/2017 Lytic lesion of bone on x-ray 09/19/2016 Overview: T 10, MRI LS spine. Nonexudative senile macular degeneration of reti na 10/20/2014 11/17/2020 Overview: Night time driving prohibited. Myopia 08/19/2014 06/17/2017 Regular astigmatism 08/19/2014 06/17/2017 Presbyopia 08/19/2014 06/17/2017 Exhausted vascular access 01/01/20142014 Lumbago 09/26/2011 06/17/2017 Macular degeneration 06/06/2011 06/17/2017 Esophagitis, unspecified 10/24/2010 016 Acute gastritis without mention of hemorrhage 08/10/2015 Diaphragmatic hernia without mention of obstruction or gangrene 10/24/2010 08/10/2015 Incisional hernia 09/22/2009 06/01/2010 Acute bronchitis 06/01/2010 Chest pain, unspecified 06/02/19 11 Cough 06/01/2010 documented as of this encounter (statuses as of 12/20/2021) [facility]08[facility]2018 History of Past illness Narrative* Problem Noted Date Resolved Date Controlled diabetes mellitus type 1 without comp lications 10/24/2017 09/10/2018 Controlled type 2 diabetes m ellitus without complication, with long-term current use of insulin 10/09/2016 11/17/2020 Vitreous floaters of both eyes 10/09/2016 0 06/17/2017 Regular astigmatism, bilateral 10/09/2016 0 06/17/2017 Lytic lesion of bone on x-ray 09/19/2016 Overview: T 10, MRI LS spine. Nonexudative senile macular degeneration of reti na 10/20/2014 11/17/2020 Overview: Night time driving prohibited. Myopia 08/19/2014 06/17/2017 Regular astigmatism 08/19/2014 06/17/2017 Presbyopia 08/19/2014 06/17/2017 Exhausted vascular access 01/01/20142014 Lumbago 09/26/2011 06/17/2017 Macular degeneration 06/06/2011 06/17/2017 Esophagitis, unspecified 10/24/2010 016 Acute gastritis without mention of hemorrhage 08/10/2015 Diaphragmatic hernia without mention of obstruction or gangrene 10/24/2010 08/10/2015 Incisional hernia 09/22/2009 06/01/2010 Acute bronchitis 06/01/2010 Chest pain, unspecified 06/02/19 11 Cough 06/01/2010 documented as of this encounter (statuses as of 12/22/2021) [facility]08[facility]2018 History of Past illness Narrative* Problem Noted Date Resolved Date Controlled diabetes mellitus type 1 without comp lications 10/24/2017 09/10/2018 Controlled type 2 diabetes m ellitus without complication, with long-term current use of insulin 10/09/2016 11/17/2020 Vitreous floaters of both eyes 10/09/2016 0 06/17/2017 Regular astigmatism, bilateral 10/09/2016 0 06/17/2017 Lytic lesion of bone on x-ray 09/19/2016 Overview: T 10, MRI LS spine. Nonexudative senile macular degeneration of reti na 10/20/2014 11/17/2020 Overview: Night time driving prohibited. Myopia 08/19/2014 06/17/2017 Regular astigmatism 08/19/2014 06/17/2017 Presbyopia 08/19/2014 06/17/2017 Exhausted vascular access 01/01/20142014 Lumbago 09/26/2011 06/17/2017 Macular degeneration 06/06/2011 06/17/2017 Esophagitis, unspecified 10/24/2010 016 Acute gastritis without mention of hemorrhage 08/10/2015 Diaphragmatic hernia without mention of obstruction or gangrene 10/24/2010 08/10/2015 Incisional hernia 09/22/2009 06/01/2010 Acute bronchitis 06/01/2010 Chest pain, unspecified 06/02/19 11 Cough 06/01/2010 documented as of this encounter (statuses as of 12/25/2021) [facility]08-[facility]2018 History of Past illness Narrative* Problem Noted Date Resolved Date Controlled diabetes mellitus type 1 without comp lications 10/24/2017 09/10/2018 Controlled type 2 diabetes m ellitus without complication, with long-term current use of insulin 10/09/2016 11/17/2020 Vitreous floaters of both eyes 10/09/2016 0 06/17/2017 Regular astigmatism, bilateral 10/09/2016 0 06/17/2017 Lytic lesion of bone on x-ray 09/19/2016 Overview: T 10, MRI LS spine. Nonexudative senile macular degeneration of reti na 10/20/2014 11/17/2020 Overview: Night time driving prohibited. Myopia 08/19/2014 06/17/2017 Regular astigmatism 08/19/2014 06/17/2017 Presbyopia 08/19/2014 06/17/2017 Exhausted vascular access 01/01/20142014 Lumbago 09/26/2011 06/17/2017 Macular degeneration 06/06/2011 06/17/2017 Esophagitis, unspecified 10/24/2010 016 Acute gastritis without mention of hemorrhage 08/10/2015 Diaphragmatic hernia without mention of obstruction or gangrene 10/24/2010 08/10/2015 Incisional hernia 09/22/2009 06/01/2010 Acute bronchitis 06/01/2010 Chest pain, unspecified 06/02/19 11 Cough 06/01/2010 documented as of this encounter (statuses as of 12/29/2021) [facility]08[facility]2018 History of Past illness Narrative* Problem Noted Date Resolved Date Controlled diabetes mellitus type 1 without comp lications 10/24/2017 09/10/2018 Controlled type 2 diabetes m ellitus without complication, with long-term current use of insulin 10/09/2016 11/17/2020 Vitreous floaters of both eyes 10/09/2016 0 06/17/2017 Regular astigmatism, bilateral 10/09/2016 0 06/17/2017 Lytic lesion of bone on x-ray 09/19/2016 Overview: T 10, MRI LS spine. Nonexudative senile macular degeneration of reti na 10/20/2014 11/17/2020 Overview: Night time driving prohibited. Myopia 08/19/2014 06/17/2017 Regular astigmatism 08/19/2014 06/17/2017 Presbyopia 08/19/2014 06/17/2017 Exhausted vascular access 01/01/20142014 Lumbago 09/26/2011 06/17/2017 Macular degeneration 06/06/2011 06/17/2017 Esophagitis, unspecified 10/24/2010 016 Acute gastritis without mention of hemorrhage 08/10/2015 Diaphragmatic hernia without mention of obstruction or gangrene 10/24/2010 08/10/2015 Incisional hernia 09/22/2009 06/01/2010 Acute bronchitis 06/01/2010 Chest pain, unspecified 06/02/19 11 Cough 06/01/2010 documented as of this encounter (statuses as of 12/29/2021) [facility]08[facility]2018 History of Past illness Narrative* Problem Noted Date Resolved Date Controlled diabetes mellitus type 1 without comp lications 10/24/2017 09/10/2018 Controlled type 2 diabetes m ellitus without complication, with long-term current use of insulin 10/09/2016 11/17/2020 Vitreous floaters of both eyes 10/09/2016 0 06/17/2017 Regular astigmatism, bilateral 10/09/2016 0 06/17/2017 Lytic lesion of bone on x-ray 09/19/2016 Overview: T 10, MRI LS spine. Nonexudative senile macular degeneration of reti na 10/20/2014 11/17/2020 Overview: Night time driving prohibited. Myopia 08/19/2014 06/17/2017 Regular astigmatism 08/19/2014 06/17/2017 Presbyopia 08/19/2014 06/17/2017 Exhausted vascular access 01/01/20142014 Lumbago 09/26/2011 06/17/2017 Macular degeneration 06/06/2011 06/17/2017 Esophagitis, unspecified 10/24/2010 016 Acute gastritis without mention of hemorrhage 08/10/2015 Diaphragmatic hernia without mention of obstruction or gangrene 10/24/2010 08/10/2015 Incisional hernia 09/22/2009 06/01/2010 Acute bronchitis 06/01/2010 Chest pain, unspecified 06/02/19 11 Cough 06/01/2010 documented as of this encounter (statuses as of 12/29/2021) [facility]08[facility]2018 History of Past illness Narrative* Problem Noted Date Resolved Date Controlled diabetes mellitus type 1 without comp lications 10/24/2017 09/10/2018 Controlled type 2 diabetes m ellitus without complication, with long-term current use of insulin 10/09/2016 11/17/2020 Vitreous floaters of both eyes 10/09/2016 0 06/17/2017 Regular astigmatism, bilateral 10/09/2016 0 06/17/2017 Lytic lesion of bone on x-ray 09/19/2016 Overview: T 10, MRI LS spine. Nonexudative senile macular degeneration of reti na 10/20/2014 11/17/2020 Overview: Night time driving prohibited. Myopia 08/19/2014 06/17/2017 Regular astigmatism 08/19/2014 06/17/2017 Presbyopia 08/19/2014 06/17/2017 Exhausted vascular access 01/01/20142014 Lumbago 09/26/2011 06/17/2017 Macular degeneration 06/06/2011 06/17/2017 Esophagitis, unspecified 10/24/2010 016 Acute gastritis without mention of hemorrhage 08/10/2015 Diaphragmatic hernia without mention of obstruction or gangrene 10/24/2010 08/10/2015 Incisional hernia 09/22/2009 06/01/2010 Acute bronchitis 06/01/2010 Chest pain, unspecified 06/02/19 11 Cough 06/01/2010 documented as of this encounter (statuses as of 02/20/2022) [facility]08[facility]2018 History of Past illness Narrative* Problem Noted Date Resolved Date Controlled diabetes mellitus type 1 without comp lications 10/24/2017 09/10/2018 Controlled type 2 diabetes m ellitus without complication, with long-term current use of insulin 10/09/2016 11/17/2020 Vitreous floaters of both eyes 10/09/2016 0 06/17/2017 Regular astigmatism, bilateral 10/09/2016 0 06/17/2017 Lytic lesion of bone on x-ray 09/19/2016 Overview: T 10, MRI LS spine. Nonexudative senile macular degeneration of reti na 10/20/2014 11/17/2020 Overview: Night time driving prohibited. Myopia 08/19/2014 06/17/2017 Regular astigmatism 08/19/2014 06/17/2017 Presbyopia 08/19/2014 06/17/2017 Exhausted vascular access 01/01/20142014 Lumbago 09/26/2011 06/17/2017 Macular degeneration 06/06/2011 06/17/2017 Esophagitis, unspecified 10/24/2010 016 Acute gastritis without mention of hemorrhage 08/10/2015 Diaphragmatic hernia without mention of obstruction or gangrene 10/24/2010 08/10/2015 Incisional hernia 09/22/2009 06/01/2010 Acute bronchitis 06/01/2010 Chest pain, unspecified 06/02/19 11 Cough 06/01/2010 documented as of this encounter (statuses as of 02/22/2022) [facility]08[facility]2018 History of Past illness Narrative* Problem Noted Date Resolved Date Controlled diabetes mellitus type 1 without comp lications 10/24/2017 09/10/2018 Controlled type 2 diabetes m ellitus without complication, with long-term current use of insulin 10/09/2016 11/17/2020 Vitreous floaters of both eyes 10/09/2016 0 06/17/2017 Regular astigmatism, bilateral 10/09/2016 0 06/17/2017 Lytic lesion of bone on x-ray 09/19/2016 Overview: T 10, MRI LS spine. Nonexudative senile macular degeneration of reti na 10/20/2014 11/17/2020 Overview: Night time driving prohibited. Myopia 08/19/2014 06/17/2017 Regular astigmatism 08/19/2014 06/17/2017 Presbyopia 08/19/2014 06/17/2017 Exhausted vascular access 01/01/20142014 Lumbago 09/26/2011 06/17/2017 Macular degeneration 06/06/2011 06/17/2017 Esophagitis, unspecified 10/24/2010 016 Acute gastritis without mention of hemorrhage 08/10/2015 Diaphragmatic hernia without mention of obstruction or gangrene 10/24/2010 08/10/2015 Incisional hernia 09/22/2009 06/01/2010 Acute bronchitis 06/01/2010 Chest pain, unspecified 06/02/19 11 Cough 06/01/2010 documented as of this encounter (statuses as of 02/23/2022) [facility]08[facility]2018 History of Past illness Narrative* Problem Noted Date Resolved Date Controlled diabetes mellitus type 1 without comp lications 10/24/2017 09/10/2018 Controlled type 2 diabetes m ellitus without complication, with long-term current use of insulin 10/09/2016 11/17/2020 Vitreous floaters of both eyes 10/09/2016 0 06/17/2017 Regular astigmatism, bilateral 10/09/2016 0 06/17/2017 Lytic lesion of bone on x-ray 09/19/2016 Overview: T 10, MRI LS spine. Nonexudative senile macular degeneration of reti na 10/20/2014 11/17/2020 Overview: Night time driving prohibited. Myopia 08/19/2014 06/17/2017 Regular astigmatism 08/19/2014 06/17/2017 Presbyopia 08/19/2014 06/17/2017 Exhausted vascular access 01/01/20142014 Lumbago 09/26/2011 06/17/2017 Macular degeneration 06/06/2011 06/17/2017 Esophagitis, unspecified 10/24/2010 016 Acute gastritis without mention of hemorrhage 08/10/2015 Diaphragmatic hernia without mention of obstruction or gangrene 10/24/2010 08/10/2015 Incisional hernia 09/22/2009 06/01/2010 Acute bronchitis 06/01/2010 Chest pain, unspecified 06/02/19 11 Cough 06/01/2010 documented as of this encounter (statuses as of 02/26/2022) [facility]08[facility]2018 History of Past illness Narrative* Problem Noted Date Resolved Date Controlled diabetes mellitus type 1 without comp lications 10/24/2017 09/10/2018 Controlled type 2 diabetes m ellitus without complication, with long-term current use of insulin 10/09/2016 11/17/2020 Vitreous floaters of both eyes 10/09/2016 0 06/17/2017 Regular astigmatism, bilateral 10/09/2016 0 06/17/2017 Lytic lesion of bone on x-ray 09/19/2016 Overview: T 10, MRI LS spine. Nonexudative senile macular degeneration of reti na 10/20/2014 11/17/2020 Overview: Night time driving prohibited. Myopia 08/19/2014 06/17/2017 Regular astigmatism 08/19/2014 06/17/2017 Presbyopia 08/19/2014 06/17/2017 Exhausted vascular access 01/01/20142014 Lumbago 09/26/2011 06/17/2017 Macular degeneration 06/06/2011 06/17/2017 Esophagitis, unspecified 10/24/2010 016 Acute gastritis without mention of hemorrhage 08/10/2015 Diaphragmatic hernia without mention of obstruction or gangrene 10/24/2010 08/10/2015 Incisional hernia 09/22/2009 06/01/2010 Acute bronchitis 06/01/2010 Chest pain, unspecified 06/02/19 11 Cough 06/01/2010 documented as of this encounter (statuses as of 03/22/2022) [facility]08[facility] History of Past illness Narrative* Problem Noted Date Resolved Date Controlled diabetes mellitus type 1 without comp lications 10/24/2017 09/10/2018 Controlled type 2 diabetes m ellitus without complication, with long-term current use of insulin 10/09/2016 11/17/2020 Vitreous floaters of both eyes 10/09/2016 0 06/17/2017 Regular astigmatism, bilateral 10/09/2016 0 06/17/2017 Lytic lesion of bone on x-ray 09/19/2016 Overview: T 10, MRI LS spine. Nonexudative senile macular degeneration of reti na 10/20/2014 11/17/2020 Overview: Night time driving prohibited. Myopia 08/19/2014 06/17/2017 Regular astigmatism 08/19/2014 06/17/2017 Presbyopia 08/19/2014 06/17/2017 Exhausted vascular access 01/01/20142014 Lumbago 09/26/2011 06/17/2017 Macular degeneration 06/06/2011 06/17/2017 Esophagitis, unspecified 10/24/2010 016 Acute gastritis without mention of hemorrhage 08/10/2015 Diaphragmatic hernia without mention of obstruction or gangrene 10/24/2010 08/10/2015 Incisional hernia 09/22/2009 06/01/2010 Acute bronchitis 06/01/2010 Chest pain, unspecified 06/02/19 11 Cough 06/01/2010 documented as of this encounter (statuses as of 04/27/2022) [facility] History of Past illness Narrative* Problem Noted Date Resolved Date Controlled diabetes mellitus type 1 without comp lications 10/24/2017 09/10/2018 Controlled type 2 diabetes m ellitus without complication, with long-term current use of insulin 10/09/2016 11/17/2020 Vitreous floaters of both eyes 10/09/2016 0 06/17/2017 Regular astigmatism, bilateral 10/09/2016 0 06/17/2017 Lytic lesion of bone on x-ray 09/19/2016 Overview: T 10, MRI LS spine. Nonexudative senile macular degeneration of reti na 10/20/2014 11/17/2020 Overview: Night time driving prohibited. Myopia 08/19/2014 06/17/2017 Regular astigmatism 08/19/2014 06/17/2017 Presbyopia 08/19/2014 06/17/2017 Exhausted vascular access 01/01/20142014 Lumbago 09/26/2011 06/17/2017 Macular degeneration 06/06/2011 06/17/2017 Esophagitis, unspecified 10/24/2010 05/25/2 016 Acute gastritis without mention of hemorrhage 08/10/2015 Diaphragmatic hernia without mention of obstruction or gangrene 10/24/2010 08/10/2015 Incisional hernia 09/22/2009 06/01/2010 Acute bronchitis 06/01/2010 Chest pain, unspecified 06/02/19 11 Cough 06/01/2010 documented as of this encounter (statuses as of 08/15/2022) [facility] History of Past illness Narrative* Problem Noted Date Resolved Date Controlled diabetes mellitus type 1 without comp lications 10/24/2017 09/10/2018 Controlled type 2 diabetes m ellitus without complication, with long-term current use of insulin 10/09/2016 11/17/2020 Vitreous floaters of both eyes 10/09/2016 0 06/17/2017 Regular astigmatism, bilateral 10/09/2016 0 06/17/2017 Lytic lesion of bone on x-ray 09/19/2016 Overview: T 10, MRI LS spine. Nonexudative senile macular degeneration of reti na 10/20/2014 11/17/2020 Overview: Night time driving prohibited. Myopia 08/19/2014 06/17/2017 Regular astigmatism 08/19/2014 06/17/2017 Presbyopia 08/19/2014 06/17/2017 Exhausted vascular access 01/01/20142014 Lumbago 09/26/2011 06/17/2017 Macular degeneration 06/06/2011 06/17/2017 Esophagitis, unspecified 10/24/2010 016 Acute gastritis without mention of hemorrhage 08/10/2015 Diaphragmatic hernia without mention of obstruction or gangrene 10/24/2010 08/10/2015 Incisional hernia 09/22/2009 06/01/2010 Acute bronchitis 06/01/2010 Chest pain, unspecified 06/02/19 11 Cough 06/01/2010 documented as of this encounter (statuses as of 08/21/2022) [facility] History of Past illness Narrative* Problem Noted Date Diagnosed Date Resolved Date Controlled diabetes mellitus type 1 without complications 10/24/2017 09/10/2018 Controlled type 2 diabetes m ellitus without complication, with long-term current use of insulin 10/09/2016 11/17/2020 Vitreous floaters of both eyes 10/09/2016 06/17/2017 Regular astigmatism, bilateral 10/09/2016 06/17/2017 Lytic lesion of bone on x-ray 09/19/2016 06/17/2017 Overview: T 10, MRI LS spine. Nonexudative senile macular degeneration of retina 10/20/2014 11/17/2020 Overview: Night time driving prohibited. Myopia 08/19/2014 06/17/2017 Regular astigmatism 08/19/2014 06/18/19 18 Presbyopia 08/19/2014 06/17/2017 Exhausted vascular access 01/01/2014 Lumbago 09/26/2011 06/17/2017 Macular degeneration 06/06/2011 018 Esophagitis, unspecified 10/24/2010 Acute gastritis without mention of hemorrhage 10/25/19 11 08/10/2015 Diaphragmatic hernia without mention of obstruction or gangrene 10/24/2010 08/10/2015 Incisional hernia 09/22/2009 06/01/2010 Acute bronchitis 06/01/2010 Chest pain, unspecified 05/16 Cough 06/01/2010 documented as of this encounter (statuses as of 11/22/2022) [facility] History of Past illness Narrative* Problem Noted Date Diagnosed Date Resolved Date Controlled diabetes mellitus type 1 without complications 10/24/2017 09/10/2018 Controlled type 2 diabetes m ellitus without complication, with long-term current use of insulin 10/09/2016 11/17/2020 Vitreous floaters of both eyes 10/09/2016 06/17/2017 Regular astigmatism, bilateral 10/09/2016 06/17/2017 Lytic lesion of bone on x-ray 09/19/2016 06/17/2017 Overview: T 10, MRI LS spine. Nonexudative senile macular degeneration of retina 10/20/2014 11/17/2020 Overview: Night time driving prohibited. Myopia 08/19/2014 06/17/2017 Regular astigmatism 08/19/2014 06/18/19 18 Presbyopia 08/19/2014 06/17/2017 Exhausted vascular access 01/01/2014 Lumbago 09/26/2011 06/17/2017 Macular degeneration 06/06/2011 018 Esophagitis, unspecified 10/24/2010 Acute gastritis without mention of hemorrhage 10/25/19 11 08/10/2015 Diaphragmatic hernia without mention of obstruction or gangrene 10/24/2010 08/10/2015 Incisional hernia 09/22/2009 06/01/2010 Acute bronchitis 06/01/2010 Chest pain, unspecified 05/16 Cough 06/01/2010 documented as of this encounter (statuses as of 11/29/2022) [facility] History of Past illness Narrative* Problem Noted Date Diagnosed Date Resolved Date Controlled diabetes mellitus type 1 without complications 10/24/2017 09/10/2018 Controlled type 2 diabetes m ellitus without complication, with long-term current use of insulin 10/09/2016 11/17/2020 Vitreous floaters of both eyes 10/09/2016 06/17/2017 Regular astigmatism, bilateral 10/09/2016 06/17/2017 Lytic lesion of bone on x-ray 09/19/2016 06/17/2017 Overview: T 10, MRI LS spine. Nonexudative senile macular degeneration of retina 10/20/2014 11/17/2020 Overview: Night time driving prohibited. Myopia 08/19/2014 06/17/2017 Regular astigmatism 08/19/2014 06/18/19 18 Presbyopia 08/19/2014 06/17/2017 Exhausted vascular access 01/01/2014 Lumbago 09/26/2011 06/17/2017 Macular degeneration 06/06/2011 018 Esophagitis, unspecified 10/24/2010 Acute gastritis without mention of hemorrhage 10/25/19 11 08/10/2015 Diaphragmatic hernia without mention of obstruction or gangrene 10/24/2010 08/10/2015 Incisional hernia 09/22/2009 06/01/2010 Acute bronchitis 06/01/2010 Chest pain, unspecified 05/16 Cough 06/01/2010 documented as of this encounter (statuses as of 12/07/2022) [facility] History of Past illness Narrative* Problem Noted Date Diagnosed Date Resolved Date Controlled diabetes mellitus type 1 without complications 10/24/2017 09/10/2018 Controlled type 2 diabetes m darren without complication, with long-term current use of insulin 10/09/2016 11/17/2020 Vitreous floaters of both eyes 10/09/2016 06/17/2017 Regular astigmatism, bilateral 10/09/2016 06/17/2017 Lytic lesion of bone on x-ray 09/19/2016 06/17/2017 Overview: T 10, MRI LS spine. Nonexudative senile macular degeneration of retina 10/20/2014 11/17/2020 Overview: Night time driving prohibited. Myopia 08/19/2014 06/17/2017 Regular astigmatism 08/19/2014 06/18/19 18 Presbyopia 08/19/2014 06/17/2017 Exhausted vascular access 01/01/2014 Lumbago 09/26/2011 06/17/2017 Macular degeneration 06/06/2011 018 Esophagitis, unspecified 10/24/2010 Acute gastritis without mention of hemorrhage 10/25/19 11 08/10/2015 Diaphragmatic hernia without mention of obstruction or gangrene 10/24/2010 08/10/2015 Incisional hernia 09/22/2009 06/01/2010 Acute bronchitis 06/01/2010 Chest pain, unspecified 05/16 Cough 06/01/2010 documented as of this encounter (statuses as of 01/04/2023) [facility] [facility] History of Past illness Narrative* Problem Noted Date Diagnosed Date Resolved Date Controlled diabetes mellitus type 1 without complications 10/24/2017 09/10/2018 Controlled type 2 diabetes m susanitus without complication, with long-term current use of insulin 10/09/2016 11/17/2020 Vitreous floaters of both eyes 10/09/2016 06/17/2017 Regular astigmatism, bilateral 10/09/2016 06/17/2017 Lytic lesion of bone on x-ray 09/19/2016 06/17/2017 Overview: T 10, MRI LS spine. Nonexudative senile macular degeneration of retina 10/20/2014 11/17/2020 Overview: Night time driving prohibited. Myopia 08/19/2014 06/17/2017 Regular astigmatism 08/19/2014 06/18/19 18 Presbyopia 08/19/2014 06/17/2017 Exhausted vascular access 01/01/2014 Lumbago 09/26/2011 06/17/2017 Macular degeneration 06/06/2011 018 Esophagitis, unspecified 10/24/2010 Acute gastritis without mention of hemorrhage 10/25/1908/10/2015 Diaphragmatic hernia without mention of obstruction or gangrene 10/24/2010 08/10/2015 Incisional hernia 09/22/2009 06/01/2010 Acute bronchitis 06/01/2010 Chest pain, unspecified 05/16 Cough 06/01/2010 documented as of this encounter (statuses as of 02/11/2023) [facility]08-[facility]2018 History of Past illness Narrative* Problem Noted Date Diagnosed Date Resolved Date Controlled diabetes mellitus type 1 without complications 10/24/2017 09/10/2018 Controlled type 2 diabetes m ellitus without complication, with long-term current use of insulin 10/09/2016 11/17/2020 Vitreous floaters of both eyes 10/09/2016 06/17/2017 Regular astigmatism, bilateral 10/09/2016 06/17/2017 Lytic lesion of bone on x-ray 09/19/2016 06/17/2017 Overview: T 10, MRI LS spine. Nonexudative senile macular degeneration of retina 10/20/2014 11/17/2020 Overview: Night time driving prohibited. Myopia 08/19/2014 06/17/2017 Regular astigmatism 08/19/2014 06/18/19 18 Presbyopia 08/19/2014 06/17/2017 Exhausted vascular access 01/01/2014 Lumbago 09/26/2011 06/17/2017 Macular degeneration 06/06/2011 018 Esophagitis, unspecified 10/24/2010 Acute gastritis without mention of hemorrhage 10/25/19 11 08/10/2015 Diaphragmatic hernia without mention of obstruction or gangrene 10/24/2010 08/10/2015 Incisional hernia 09/22/2009 06/01/2010 Acute bronchitis 06/01/2010 Chest pain, unspecified 05/16 Cough 06/01/2010 documented as of this encounter (statuses as of 02/14/2023) [facility]08[facility] History of Past illness Narrative* Problem Noted Date Diagnosed Date Resolved Date Controlled diabetes mellitus type 1 without complications 10/24/2017 09/10/2018 Controlled type 2 diabetes josemanuel banks without complication, with long-term current use of insulin 10/09/2016 11/17/2020 Vitreous floaters of both eyes 10/09/2016 06/17/2017 Regular astigmatism, bilateral 10/09/2016 06/17/2017 Lytic lesion of bone on x-ray 09/19/2016 06/17/2017 Overview: T 10, MRI LS spine. Nonexudative senile macular degeneration of retina 10/20/2014 11/17/2020 Overview: Night time driving prohibited. Myopia 08/19/2014 06/17/2017 Regular astigmatism 08/19/2014 06/18/19 18 Presbyopia 08/19/2014 06/17/2017 Exhausted vascular access 01/01/2014 Lumbago 09/26/2011 06/17/2017 Macular degeneration 06/06/2011 018 Esophagitis, unspecified 10/24/2010 Acute gastritis without mention of hemorrhage 10/25/19 11 08/10/2015 Diaphragmatic hernia without mention of obstruction or gangrene 10/24/2010 08/10/2015 Incisional hernia 09/22/2009 06/01/2010 Acute bronchitis 06/01/2010 Chest pain, unspecified 05/16 Cough 06/01/2010 documented as of this encounter (statuses as of 02/14/2023) [facility] History of Past illness Narrative* Problem Noted Date Diagnosed Date Resolved Date Controlled diabetes mellitus type 1 without complications 10/24/2017 09/10/2018 Controlled type 2 diabetes m ellitus without complication, with long-term current use of insulin 10/09/2016 11/17/2020 Vitreous floaters of both eyes 10/09/2016 06/17/2017 Regular astigmatism, bilateral 10/09/2016 06/17/2017 Lytic lesion of bone on x-ray 09/19/2016 06/17/2017 Overview: T 10, MRI LS spine. Nonexudative senile macular degeneration of retina 10/20/2014 11/17/2020 Overview: Night time driving prohibited. Myopia 08/19/2014 06/17/2017 Regular astigmatism 08/19/2014 06/18/19 18 Presbyopia 08/19/2014 06/17/2017 Exhausted vascular access 01/01/2014 Lumbago 09/26/2011 06/17/2017 Macular degeneration 06/06/2011 018 Esophagitis, unspecified 10/24/2010 Acute gastritis without mention of hemorrhage 10/25/19 11 08/10/2015 Diaphragmatic hernia without mention of obstruction or gangrene 10/24/2010 08/10/2015 Incisional hernia 09/22/2009 06/01/2010 Acute bronchitis 06/01/2010 Chest pain, unspecified 05/16 Cough 06/01/2010 documented as of this encounter (statuses as of 04/23/2023) [facility] History of Past illness Narrative* Problem Noted Date Diagnosed Date Resolved Date Controlled diabetes mellitus type 1 without complications 10/24/2017 09/10/2018 Controlled type 2 diabetes m darren without complication, with long-term current use of insulin 10/09/2016 11/17/2020 Vitreous floaters of both eyes 10/09/2016 06/17/2017 Regular astigmatism, bilateral 10/09/2016 06/17/2017 Lytic lesion of bone on x-ray 09/19/2016 06/17/2017 Overview: T 10, MRI LS spine. Nonexudative senile macular degeneration of retina 10/20/2014 11/17/2020 Overview: Night time driving prohibited. Myopia 08/19/2014 06/17/2017 Regular astigmatism 08/19/2014 06/18/19 18 Presbyopia 08/19/2014 06/17/2017 Exhausted vascular access 01/01/2014 Lumbago 09/26/2011 06/17/2017 Macular degeneration 06/06/2011 018 Esophagitis, unspecified 10/24/2010 Acute gastritis without mention of hemorrhage 10/25/19 11 08/10/2015 Diaphragmatic hernia without mention of obstruction or gangrene 10/24/2010 08/10/2015 Incisional hernia 09/22/2009 06/01/2010 Acute bronchitis 06/01/2010 Chest pain, unspecified 05/16 Cough 06/01/2010 documented as of this encounter (statuses as of 04/26/2023) [facility] History of Past illness Narrative* Problem Noted Date Diagnosed Date Resolved Date Controlled diabetes mellitus type 1 without complications 10/24/2017 09/10/2018 Controlled type 2 diabetes m ellitus without complication, with long-term current use of insulin 10/09/2016 11/17/2020 Vitreous floaters of both eyes 10/09/2016 06/17/2017 Regular astigmatism, bilateral 10/09/2016 06/17/2017 Lytic lesion of bone on x-ray 09/19/2016 06/17/2017 Overview: T 10, MRI LS spine. Nonexudative senile macular degeneration of retina 10/20/2014 11/17/2020 Overview: Night time driving prohibited. Myopia 08/19/2014 06/17/2017 Regular astigmatism 08/19/2014 06/18/19 18 Presbyopia 08/19/2014 06/17/2017 Exhausted vascular access 01/01/2014 Lumbago 09/26/2011 06/17/2017 Macular degeneration 06/06/2011 018 Esophagitis, unspecified 10/24/2010 Acute gastritis without mention of hemorrhage 10/25/19 11 08/10/2015 Diaphragmatic hernia without mention of obstruction or gangrene 10/24/2010 08/10/2015 Incisional hernia 09/22/2009 06/01/2010 Acute bronchitis 06/01/2010 Chest pain, unspecified 05/16 Cough 06/01/2010 documented as of this encounter (statuses as of 05/01/2023) [facility] History of Past illness Narrative* Problem Noted Date Diagnosed Date Resolved Date Controlled diabetes mellitus type 1 without complications 10/24/2017 09/10/2018 Controlled type 2 diabetes m ellitus without complication, with long-term current use of insulin 10/09/2016 11/17/2020 Vitreous floaters of both eyes 10/09/2016 06/17/2017 Regular astigmatism, bilateral 10/09/2016 06/17/2017 Lytic lesion of bone on x-ray 09/19/2016 06/17/2017 Overview: T 10, MRI LS spine. Nonexudative senile macular degeneration of retina 10/20/2014 11/17/2020 Overview: Night time driving prohibited. Myopia 08/19/2014 06/17/2017 Regular astigmatism 08/19/2014 06/18/19 18 Presbyopia 08/19/2014 06/17/2017 Exhausted vascular access 01/01/2014 Lumbago 09/26/2011 06/17/2017 Macular degeneration 06/06/2011 018 Esophagitis, unspecified 10/24/2010 Acute gastritis without mention of hemorrhage 10/25/19 11 08/10/2015 Diaphragmatic hernia without mention of obstruction or gangrene 10/24/2010 08/10/2015 Incisional hernia 09/22/2009 06/01/2010 Acute bronchitis 06/01/2010 Chest pain, unspecified 05/16 Cough 06/01/2010 documented as of this encounter (statuses as of 05/03/2023) [facility]08[facility] History of Past illness Narrative* Problem Noted Date Diagnosed Date Resolved Date Controlled diabetes mellitus type 1 without complications 10/24/2017 09/10/2018 Controlled type 2 diabetes m ellitus without complication, with long-term current use of insulin 10/09/2016 11/17/2020 Vitreous floaters of both eyes 10/09/2016 06/17/2017 Regular astigmatism, bilateral 10/09/2016 06/17/2017 Lytic lesion of bone on x-ray 09/19/2016 06/17/2017 Overview: T 10, MRI LS spine. Nonexudative senile macular degeneration of retina 10/20/2014 11/17/2020 Overview: Night time driving prohibited. Myopia 08/19/2014 06/17/2017 Regular astigmatism 08/19/2014 06/18/19 18 Presbyopia 08/19/2014 06/17/2017 Exhausted vascular access 01/01/2014 Lumbago 09/26/2011 06/17/2017 Macular degeneration 06/06/2011 018 Esophagitis, unspecified 10/24/2010 Acute gastritis without mention of hemorrhage 10/25/19 11 08/10/2015 Diaphragmatic hernia without mention of obstruction or gangrene 10/24/2010 08/10/2015 Incisional hernia 09/22/2009 06/01/2010 Acute bronchitis 06/01/2010 Chest pain, unspecified 05/16 Cough 06/01/2010 documented as of this encounter (statuses as of 05/08/2023) [facility] History of Past illness Narrative* Problem Noted Date Diagnosed Date Resolved Date Controlled diabetes mellitus type 1 without complications 10/24/2017 09/10/2018 Controlled type 2 diabetes m ellitus without complication, with long-term current use of insulin 10/09/2016 11/17/2020 Vitreous floaters of both eyes 10/09/2016 06/17/2017 Regular astigmatism, bilateral 10/09/2016 06/17/2017 Lytic lesion of bone on x-ray 09/19/2016 06/17/2017 Overview: T 10, MRI LS spine. Nonexudative senile macular degeneration of retina 10/20/2014 11/17/2020 Overview: Night time driving prohibited. Myopia 08/19/2014 06/17/2017 Regular astigmatism 08/19/2014 06/18/19 18 Presbyopia 08/19/2014 06/17/2017 Exhausted vascular access 01/01/2014 Lumbago 09/26/2011 06/17/2017 Macular degeneration 06/06/2011 018 Esophagitis, unspecified 10/24/2010 Acute gastritis without mention of hemorrhage 10/25/19 11 08/10/2015 Diaphragmatic hernia without mention of obstruction or gangrene 10/24/2010 08/10/2015 Incisional hernia 09/22/2009 06/01/2010 Acute bronchitis 06/01/2010 Chest pain, unspecified 05/16 Cough 06/01/2010 documented as of this encounter (statuses as of 05/15/2023) [facility] History of Past illness Narrative* Problem Noted Date Diagnosed Date Resolved Date Controlled diabetes mellitus type 1 without complications 10/24/2017 09/10/2018 Controlled type 2 diabetes m ellitus without complication, with long-term current use of insulin 10/09/2016 11/17/2020 Vitreous floaters of both eyes 10/09/2016 06/17/2017 Regular astigmatism, bilateral 10/09/2016 06/17/2017 Lytic lesion of bone on x-ray 09/19/2016 06/17/2017 Overview: T 10, MRI LS spine. Nonexudative senile macular degeneration of retina 10/20/2014 11/17/2020 Overview: Night time driving prohibited. Myopia 08/19/2014 06/17/2017 Regular astigmatism 08/19/2014 06/18/19 18 Presbyopia 08/19/2014 06/17/2017 Exhausted vascular access 01/01/2014 Lumbago 09/26/2011 06/17/2017 Macular degeneration 06/06/2011 018 Esophagitis, unspecified 10/24/2010 Acute gastritis without mention of hemorrhage 10/25/19 11 08/10/2015 Diaphragmatic hernia without mention of obstruction or gangrene 10/24/2010 08/10/2015 Incisional hernia 09/22/2009 06/01/2010 Acute bronchitis 06/01/2010 Chest pain, unspecified 05/16 Cough 06/01/2010 documented as of this encounter (statuses as of 05/22/2023) [facility] - [facility]orted* VAL GEORGINA is here for an initial evaluation. * Reason for Visit: SOB. * Appointment requested by: Dr. Yulia Jennings. MP-Pulmonary Medicine-[address] Work Phone: Evaluation note* Diagnosis Essential hypertension- Primary Unspecified essential hypertension Type 2 diabetes mellitus with stage 4 chronic kidney disease, with long-term current use of insulin (HCC) DDD (degenerative disc disease), thoracolumbar Degeneration of thoracic or thoracolumbar intervertebral disc Mixed hyperlipidemia documented in this encounter [facility]* Diagnosis Pain of right lower extremity- Primary [facility]* Diagnosis Acute leg pain, right- Primary Depressive disorder Depressive disorder, not elsewhere classified DDD (degenerative disc disease), thoracolumbar Degeneration of thoracic or thoracolumbar intervertebral disc documented [facility] this [facility]* Diagnosis Right leg pain- Primary Pain in limb Elevated d-dimer Abnormal coagulation profile documented [facility] this encounter [facility] noteNo assessment information availableSouthwest [facility] Work Phone: Evaluation note* Musculoskeletal: Moves extremities in bedGastrointestinal: Soft, nontender, nondistended, + BS, obes eCardiovascular: S1, S2, rate and rhythmRespiratory/Thorax: Respirations even and unlabored at rest, clear to auscultation upper lobes with crackles in the bases, diminished throughout, on oxygen pernasal cannulaHead/Neck: Normocephalic, atraumaticENMT: Mucous membranes moistEyes: EOMI, clear scler aSkin: Warm and dryConstitutional: Well developed, awake/alert/oriented x3, no acute distress, cooperativeNeurological: Awake, alert, oriented [id number]: Mild edema of the lower extremities belowthe knees, improving, bilateral Geovanni wraps onPsychological: Appropriate mood and behavior [facility]* Diagnosis CKD (chronic kidney disease) stage 4, GFR 15-29 ml/min (HCC)- Primary Chronic kidney disease, Stage IV (severe) DDD (degenerative disc disease), thoracolumbar Degeneration of thoracic or thoracolumbar intervertebral disc Type 2 diabetes mellitus with stage 4 chronic kidney disease, with long-term current use of insulin (HCC) Anemia due to chronic kidney disease, unspecified CKD stage Essential hypertension Unspecified essential hypertension Mixed hyperlipidemia Hypertensive heart disease with acute on chronic systolic congestive heart failure (HCC) Hypoxemia documented in this encounter [facility]* Diagnosis DDD (degenerative disc disease), thoracolumbar- Primary Degeneration of thoracic or thoracolumbar intervertebral disc Other hyperlipidemia Depressive disorder Depressive disorder, not elsewhere classified Type 2 diabetes mellitus with stage 4 chronic kidney disease, with long-term current use of insulin (HCC) Hyperparathyroidism, secondary renal (HCC) Secondary hyperparathyroidism (of renal origin) Obesity, Class III, BMI 40-49.9 (morbid obesity) (HCC) Morbid obesity documented in this encounter [facility]* Diagnosis Type 2 diabetes mellitus with stage 4 chronic kidney disease, with long-term current use of insulin (HCC)- Primary Hypertensive heart disease with acute on chronic systolic congestive heart failure (HCC) Depressive disorder Depressive disorder, not elsewhere classified DDD (degenerative disc disease), thoracolumbar Degeneration of thoracic or thoracolumbar intervertebral disc documented [facility]* Diagnosis Patient left without being seen- Primary Surgical or other procedure not carried out because of patient's decision documented in this encounter [facility]* Diagnosis Chronic combined systolic and diastolic CHF, NYHA class 3 (CMS/HCC)- Primary Dyspnea on exertion Other dyspnea and respiratory abnormality documented in this encounter [facility] Work Phone: Evaluation note* Diagnosis Type 2 diabetes mellitus with stage 4 chronic kidney disease, with long-term current use of insulin (HCC)- Primary DDD (degenerative disc disease), thoracolumbar Degeneration of thoracic or thoracolumbar intervertebral disc Depressive disorder Depressive disorder, not elsewhere classified Encounter for immunization Need for other specified prophylactic vaccination against single bacterial disease documented in this encounter [facility] note* Diagnosis Chronic combined systolic (congestive) and diastolic (congestive) heart failure (CMS/HCC) Hypertensive heart and chronic kidney disease with heart failure and stage 1 through stage 4 chronic kidney disease, or unspecified chronic kidney disease (CMS/HCC) Chronic systolic (congestive) heart failure (CMS/HCC) Left bundle-branch block, unspecified Compression of vein Other pericardial effusion (noninflammatory) Chronic kidney disease, stage 3 unspecified (CMS/HCC) Type 2 diabetes mellitus with diabetic chronic kidney disease (CMS/HCC) Hyperlipidemia, unspecified Type 2 diabetes mellitus with diabetic neuropathy, unspecified (CMS/HCC) Morbid (severe) obesity due to excess calories (CMS/HCC) Body mass index (BMI) 45.0-49.9, adult (CMS/HCC) shelter (current) use of insulin (CMS/HCC) Heart failure, unspecified (CMS/HCC) Heart failure, unspecified Procedure and treatment not carried out for other reasons documented in this encounter [facility] Work Phone: Evaluation note* Diagnosis Type 2 diabetes mellitus with stage 4 chronic kidney disease, with long-term current use of insulin ([facility]) documented in this encounter [facility]* Diagnosis Type 2 diabetes mellitus with stage 4 chronic kidney disease, with long-term current use of insulin ([facility])- Primary documented in this encounter [facility]* Diagnosis Obstructive airway disease (CMS/[facility])- Primary Chronic airway obstruction, not elsewhere classified Dyspnea on exertion Other dyspnea and respiratory abnormality Nocturnal hypoxemia due to obesity documented in this encounter [facility] Work Phone: Evaluation note* Diagnosis ICD (implantable cardioverter-defibrillator) in place Paroxysmal ventricular tachycardia ([facility]) Paroxysmal ventricular tachycardia documented in this encounter [facility] Work Phone: Evaluation note* Diagnosis Type 2 diabetes mellitus with stage 4 chronic kidney disease, with long-term current use of insulin ([facility])- Primary Hypertensive heart disease with acute on chronic systolic congestive heart failure (HCC) CKD (chronic kidney disease) stage 4, GFR 15-29 ml/min ([facility]) Chronic kidney disease, Stage IV (severe) Hyperparathyroidism, secondary renal (HCC) Secondary hyperparathyroidism (of renal origin) Essential hypertension Unspecified essential hypertension Obesity, Class III, BMI 40-49.9 (morbid obesity) ([facility]) Morbid obesity documented in this encounter [facility]* Diagnosis Type 2 diabetes mellitus with stage 4 chronic kidney disease, with long-term current use of insulin ([facility])- Primary [facility]* Diagnosis ICD (implantable cardioverter-defibrillator) in place Paroxysmal ventricular tachycardia ([facility]/HCC) Paroxysmal ventricular tachycardia documented in this encounter [facility] Work Phone: History of Present illness Narrative* Patient was seen today on a follow-up visit. She was accompanied by her son Hardik. I reviewed her chest x-ray which on the lateral view did show what appears to be chronic vertebral compression fracture of the lower lumbar. The patient denies having any acute back pains. I reviewed her pulmonary function testing which does show evidence of some obstructive airway disease that improved post broncho dilator. Her gas transfer was reduced at 66%. I also reviewed her arterial blood gases which were normal at rest and her SST which showed that with short distance of 50 feet her oxygen saturation decreased less than or equal 88%. She did good for another 150 feet with just 2 L of oxygen. Should be noted that her chest x-ray did show some improvement in lung aeration on the study done on 04/16/2022. I suggest that these changes are most likely due to some pulmonary edema. * She denies any cough or sputum production and no wheezing. She has short of breath however with activity which at least in part is due to her obesity. -Pulmonary [facility] [employer] DO Work Phone: History of Present illness Narrative* Patient was seen today on a follow-up visit. She was accompanied by her son Hardik. I reviewed her chest x-ray which on the lateral view did show what appears to be chronic vertebral compression fracture of the lower lumbar. The patient denies having any acute back pains. I reviewed her pulmonary function testing which does show evidence of some obstructive airway disease that improved post broncho dilator. Her gas transfer was reduced at 66%. I also reviewed her arterial blood gases which were normal at rest and her SST which showed that with short distance of 50 feet her oxygen saturation decreased less than or equal 88%. She did good for another 150 feet with just 2 L of oxygen. Should be noted that her chest x-ray did show some improvement in lung aeration on the study done on 04/16/2022. I suggest that these changes are most likely due to some pulmonary edema. * She denies any cough or sputum production and no wheezing. She has short of breath however with activity which at least in part is due to her obesity. -Pulmonary Medicine-[facility] Work Phone: History of Present illness Narrative* Patient was seen today on a 1 month follow-up visit. Her other son Maxi brought her to the appointment today. I discussed with both of them the multiple reasons for her shortness of breath which includes lack of fitness, obesity, hypoxemia with activity and moderate obstructive airway disease. [place]en[place] having any problems with the Trelegy 100 daily. It appears that she is using the oxygen as needed rather than as we outlined the last time she was here. She feels that her breathing is doing okay with activity and she had no problems with using the Trelegy. * She denies any cough or sputum production and no wheezing. [facility] [place] [id number] [place] Work Phone: History of Present illness Narrative* Patient was seen today on a 1 month follow-up visit. Her other son Maxi brought her to the appointment today. I discussed with both of them the multiple reasons for her shortness of breath which includes lack of fitness, obesity, hypoxemia with activity and moderate obstructive airway disease. [place] having any problems with the Trelegy 100 daily. It appears that she is using the oxygen as needed rather than as we outlined the last time she was here. She feels that her breathing is doing okay with activity and she had no problems with using the Trelegy. * She denies any cough or sputum production and no wheezing. [facility] [place] [id number] [place] Work Phone: History of Present illness Narrative* Patient was seen today on a 1 month follow-up visit. Her other son Maxi brought her to the appointment today. I discussed with both of them the multiple reasons for her shortness of breath which includes lack of fitness, obesity, hypoxemia with activity and moderate obstructive airway disease. [place] having any problems with the Trelegy 100 daily. It appears that she is using the oxygen as needed rather than as we outlined the last time she was here. She feels that her breathing is doing okay with activity and she had no problems with using the Trelegy. * She denies any cough or sputum production and no wheezing. [facility] [place] [id number] [facility] Work Phone: History of Present illness Narrative* She is here for new patient visit * She was referred here by Dr. Browne for evaluation of removing a port * She does have a history of chronic renal dysfunction and has had issues with blood draws for many years and has now had a port on the left chest present for 7 years * She gets blood draws and this is used for her blood draws * Her kidney function has been fairly stable * She is in need of a pacemaker [facility] [address] [facility] Work Phone: reason for referral (narrative)* Diagnostic Procedure Only (Routine) - Pending Review Specialty Diagnoses / Procedures Referred By Jorje bay Referred To Contact XR IMAGING Diagnoses Acute leg pain, right Procedures XR TIBIA FIBULA 2V AP/LAT RIGHT RADIOLOGIC EXAMINATION TIBIA & FIBULA 2 VIEWS Neel Turpin MD [address] [place] [address] Xr Imaging Referral ID Status Reason Start Date Expiration Date Visits Requested Visits Authorized [id number] Pending Review Auto-Generat ed Referral 12/18/2021 01/17/2023 1 1 * Diagnostic Procedure Only (Routine) - Pending Review Specialty Diagnoses / Procedures Referred By Jorje bay Referred To Contact XR IMAGING Diagnoses Acute leg pain, right Procedures XR KNEE GENERAL 4V AP BOTH/PA BOTH/LAT/MERC RIGHT RADIOLOGIC EXAM KNEE COMPLETE 4/MORE VIEWS Neel Turpin MD [address] [place] [address] Xr Imaging Referral ID Status Reason Start Date Expiration Date Visits Requested Visits Authorized [id number] Pending Review Auto-Generat ed Referral 12/18/2021 01/17/2023 1 1 [facility] for referral (narrative)* Outpatient Procedure (Urgent) - Closed Specialty Diagnoses / Procedures Referred By Jorje bay Referred To [facility] Diagnoses Right leg pain Elevated d-dimer Procedures US LEG VEIN DVT UNL VAS LAB DUP-SCAN XTR VEINS UNILATERAL/LIMITED STUDY Kacy Berumen APRN.OIL WELL [employer]OOTER [address] [place] [address] [facility] [address] [facility] [address] [place] [address] Referral ID Status Reason Start Date Expiration Date V isits Requested Visits Authorized [id number] Closed Auto-Generate d Referral 12/19/2021 12/19/2022 1 1 [facility] Summary Purpose Family History No Family History Records FoundUnknown Family Member Name Dates Details Family history of coronary a rtery disease: Sister(V17.3, Z82.49) Status:Active Family history of malignant neoplasm: Mother, Sister(V16.9, Z80.9) Status:Active Family history of diabetes m ellitus: Son(V18.0, Z83.3) Status:Active Family history of cerebrovas cular accident (CVA): Father, Brother(V17.1, Z82.3) Status:Active Unknown Family Member Name Dates Details Family history of coronary a rtery disease: Sister(V17.3, Z82.49) Status:Active Family history of malignant neoplasm: Mother, Sister(V16.9, Z80.9) Status:Active Family history of diabetes m ellitus: Son(V18.0, Z83.3) Status:Active Family history of cerebrovas cular accident (CVA): Father, Brother(V17.1, Z82.3) Status:Active Unknown Family Member Name Dates Details Family history of coronary a rtery disease: Sister(V17.3, Z82.49) Status:Active Family history of malignant neoplasm: Mother, Sister(V16.9, Z80.9) Status:Active Family history of diabetes m ellitus: Son(V18.0, Z83.3) Status:Active Family history of cerebrovas cular accident (CVA): Father, Brother(V17.1, Z82.3) Status:Active Unknown Family Member Name Dates Details Family history of coronary a rtery disease: Sister(V17.3, Z82.49) Status:Active Family history of malignant neoplasm: Mother, Sister(V16.9, Z80.9) Status:Active Family history of diabetes m ellitus: Son(V18.0, Z83.3) Status:Active Family history of cerebrovas cular accident (CVA): Father, Brother(V17.1, Z82.3) Status:Active Unknown Family Member Name Dates Details Family history of cerebrovas cular accident (CVA): Father, Brother(V17.1, Z82.3) Status:Active Family history of diabetes m ellitus: Son(V18.0, Z83.3) Status:Active Family history of malignant neoplasm: Mother, Sister(V16.9, Z80.9) Status:Active Family history of coronary a rtery disease: Sister(V17.3, Z82.49) Status:Active Unknown Family Member Name Dates Details Family history of coronary a rtery disease: Sister(V17.3, Z82.49) Status:Active Family history of malignant neoplasm: Mother, Sister(V16.9, Z80.9) Status:Active Family history of diabetes m ellitus: Son(V18.0, Z83.3) Status:Active Family history of cerebrovas cular accident (CVA): Father, Brother(V17.1, Z82.3) Status:Active Unknown Family Member Name Dates Details Family history of coronary a rtery disease: Sister(V17.3, Z82.49) Status:Active Family history of malignant neoplasm: Mother, Sister(V16.9, Z80.9) Status:Active Family history of diabetes m ellitus: Son(V18.0, Z83.3) Status:Active Family history of cerebrovas cular accident (CVA): Father, Brother(V17.1, Z82.3) Status:Active Unknown Family Member Name Dates Details Family history of coronary a rtery disease: Sister(V17.3, Z82.49) Status:Active Family history of malignant neoplasm: Mother, Sister(V16.9, Z80.9) Status:Active Family history of diabetes m ellitus: Son(V18.0, Z83.3) Status:Active Family history of cerebrovas cular accident (CVA): Father, Brother(V17.1, Z82.3) Status:Active Unknown Family Member Name Dates Details Family history of coronary a rtery disease: Sister(V17.3, Z82.49) Status:Active Family history of malignant neoplasm: Mother, Sister(V16.9, Z80.9) Status:Active Family history of diabetes m ellitus: Son(V18.0, Z83.3) Status:Active Family history of cerebrovas cular accident (CVA): Father, Brother(V17.1, Z82.3) Status:Active Unknown Family Member Name Dates Details Family history of coronary a rtery disease: Sister(V17.3, Z82.49) Status:Active Family history of malignant neoplasm: Mother, Sister(V16.9, Z80.9) Status:Active Family history of diabetes m ellitus: Son(V18.0, Z83.3) Status:Active Family history of cerebrovas cular accident (CVA): Father, Brother(V17.1, Z82.3) Status:Active Unknown Family Member Name Dates Details Family history of coronary a rtery disease: Sister(V17.3, Z82.49) Status:Active Family history of malignant neoplasm: Mother, Sister(V16.9, Z80.9) Status:Active Family history of diabetes m ellitus: Son(V18.0, Z83.3) Status:Active Family history of cerebrovas cular accident (CVA): Father, Brother(V17.1, Z82.3) Status:Active Unknown Family Member Name Dates Details Family history of coronary a rtery disease: Sister(V17.3, Z82.49) Status:Active Family history of malignant neoplasm: Mother, Sister(V16.9, Z80.9) Status:Active Family history of diabetes m ellitus: Son(V18.0, Z83.3) Status:Active Family history of cerebrovas cular accident (CVA): Father, Brother(V17.1, Z82.3) Status:Active Unknown Family Member Name Dates Details Family history of coronary a rtery disease: Sister(V17.3, Z82.49) Status:Active Family history of malignant neoplasm: Mother, Sister(V16.9, Z80.9) Status:Active Family history of diabetes m ellitus: Son(V18.0, Z83.3) Status:Active Family history of cerebrovas cular accident (CVA): Father, Brother(V17.1, Z82.3) Status:Active Advance Directives No Advanced Directives Records FoundNo Advanced Directives Records FoundNo Advanced Directives Records FoundNo Advanced Directives Records FoundNo Advanced Directives Records FoundNo Advanced Directives Records FoundNo Advanced Directives Records FoundNo Advanced Directives Records FoundNo Advanced Directives Records FoundNo Advanced Directives Records FoundNo Advanced Directives Records Found Reason for Referral Specialty Diagnoses / Procedures Referred By Contac t Referred To Contact Orthopedics Diagnoses Pain of right lower extremity Procedures CONSULT TO ORTHOPAEDICS OFFICE/OUTPATIENT [facility] 60-74 MINUTES Carissa Lee APRN.[employer]OOTER [address] [place] [address] Referral ID Status Reason Start Date Expiration Date Visits Requested Visits Authorized [id number] Authorized PCP Requested Referral 12/04/2021 12/04/2022 1 1 Specialty Diagnoses / Procedures Referred By Contac t Referred To Contact Diagnoses Chronic combined systolic and diastolic CHF, NYHA class 3 (CMS/HCC) Dyspnea on exertion Procedures ECG 12 Lead Tamika Jennings MD [address], [address] [place] [address] Referral ID Status Reason Start Date Expiration Date V isits Requested Visits Authorized [id number] Pending Review 12/28/2022 06/26/2023 1 1 Specialty Diagnoses / Procedures Referred By Contac t Referred To Contact Cardiology Diagnoses ICD (implantable cardioverter-defibrillator) in place Paroxysmal ventricular tachycardia (CMS/HCC) Procedures Cardiac device check - Remote alert Claus Browne MD [address] [place] [address] Par [id number] Cr Nonv[address] [facility] [address] [place] [address] Referral ID Status Reason Start Date Expiration Date Visits Requested Visits Authorized [id number] Authorized Perform Procedure 04/17/2023 04/16/2024 1 1 Specialty Diagnoses / Procedures Referred By Contac t Referred To Contact Cardiology Diagnoses ICD (implantable cardioverter-defibrillator) in place Paroxysmal ventricular tachycardia (CMS/HCC) Procedures Cardiac Device Check - In Clinic Claus Browne MD [address] [facility] [address] [place] [address] Referral ID Status Reason Start Date Expiration Date Visits Requested Visits Authorized [id number] Pending Review Perform Procedure 05/14/2023 05/13/2024 1 1 Chief Complaint ACC/AHA stage C HFrEF* VAL HERBERT is here for a follow-up visit and here with sonHardik. * Reason for Visit: Review CXR, PFT, ABG, SST, Nocturnal Pulse Ox. * VAL HERBERT is here for a follow-up visit and here with sonHardik. * Reason for Visit: Review CXR, PFT, ABG, SST, Nocturnal Pulse Ox. 1 MO MARTINEZ-TRIAL OF TRELEGY1 MO MARTINEZ-TRIAL OF TRELEGY1 MO MARTINEZ-TRIAL OF TRELEGYHeart failure with reduced ejection fractionMEDIPORT REMOVALPt here for 1 week wound check s/p pacemaker placement with Dr. Browne on 10/03/22 @ [place]. states she feels well. Dressing removed. Site healing well with mild ecchymosis. No drainage, swelling or redness noted. Steris strips intact. Slight irritation with bandage adhesive. Additional Source Comments INFORMATION SOURCE (unrecogn ized section and content) DATE CREATED AUTHOR AUTHOR'S ORGANIZ ATION 05/07/2018 [facility] DATE CREATED AUTHOR AUTHOR'S ORGANIZ ATION 02/13/2022 [facility] DATE CREATED AUTHOR AUTHOR'S ORGANIZ ATION 12/18/2022 [facility] DATE CREATED AUTHOR AUTHOR'S ORGANIZ ATION 12/20/2022 [facility] DATE CREATED AUTHOR AUTHOR'S ORGANIZ ATION 02/03/2023 [facility] DATE CREATED AUTHOR AUTHOR'S ORGANIZ ATION 04/17/2023 [facility] DATE CREATED AUTHOR AUTHOR'S ORGANIZ ATION 05/03/2023 [facility] DATE CREATED AUTHOR AUTHOR'S ORGANIZ ATION 05/20/2023 [facility] DATE CREATED AUTHOR AUTHOR'S ORGANIZ ATION 05/23/2023 [facility] DATE CREATED AUTHOR AUTHOR'S ORGANIZ ATION 05/23/2023 [facility] Source Comments (unrecognize d section and content) In the event this informatio n is protected by the Federal Confidentiality of Alcohol and Drug Abuse Patient Records regulations: The Federal rules restrict any use of the information to criminally investigate or prosecute any alcohol or drug abuse patient.[facility] the event this information is protected by the Federal Confidentiality of Alcohol and Drug Abuse Patient Records regulations: The Federal rules restrict any use of the information to criminally investigate or prosecute any alcohol or drug abuse patient.[facility] Hospital[facility] the event this information is protected by the Federal Confidentiality of Alcohol and Drug Abuse Patient Records regulations: The Federal rules restrict any use of the information to criminally investigate or prosecute any alcohol or drug abuse patient.[facility] Hospital[facility] the event this information is protected by the Federal Confidentiality of Alcohol and Drug Abuse Patient Records regulations: The Federal rules restrict any use of the information to criminally investigate or prosecute any alcohol or drug abuse patient.[facility] Hospital[facility] the event this information is protected by the Federal Confidentiality of Alcohol and Drug Abuse Patient Records regulations: The Federal rules restrict any use of the information to criminally investigate or prosecute any alcohol or drug abuse patient.[facility] Hospital[facility] the event this information is protected by the Federal Confidentiality of Alcohol and Drug Abuse Patient Records regulations: The Federal rules restrict any use of the information to criminally investigate or prosecute any alcohol or drug abuse patient.[facility] HospitalIn the event this information is protected by the Federal Confidentiality of Alcohol and Drug Abuse Patient Records regulations: The Federal rules restrict any use of the information to criminally investigate or prosecute any alcohol or drug abuse patient.[facility] HospitalIn the event this information is protected by the Federal Confidentiality of Alcohol and Drug Abuse Patient Records regulations: The Federal rules restrict any use of the information to criminally investigate or prosecute any alcohol or drug abuse patient.[facility] HospitalIn the event this information is protected by the Federal Confidentiality of Alcohol and Drug Abuse Patient Records regulations: The Federal rules restrict any use of the information to criminally investigate or prosecute any alcohol or drug abuse patient.[facility] HospitalIn the event this information is protected by the Federal Confidentiality of Alcohol and Drug Abuse Patient Records regulations: The Federal rules restrict any use of the information to criminally investigate or prosecute any alcohol or drug abuse patient.[facility] HospitalIn the event this information is protected by the Federal Confidentiality of Alcohol and Drug Abuse Patient Records regulations: The Federal rules restrict any use of the information to criminally investigate or prosecute any alcohol or drug abuse patient.[facility] HospitalIn the event this information is protected by the Federal Confidentiality of Alcohol and Drug Abuse Patient Records regulations: The Federal rules restrict any use of the information to criminally investigate or prosecute any alcohol or drug abuse patient.[facility] HospitalIn the event this information is protected by the Federal Confidentiality of Alcohol and Drug Abuse Patient Records regulations: The Federal rules restrict any use of the information to criminally investigate or prosecute any alcohol or drug abuse patient.[facility] HospitalIn the event this information is protected by the Federal Confidentiality of Alcohol and Drug Abuse Patient Records regulations: The Federal rules restrict any use of the information to criminally investigate or prosecute any alcohol or drug abuse patient.[facility] HospitalIn the event this information is protected by the Federal Confidentiality of Alcohol and Drug Abuse Patient Records regulations: The Federal rules restrict any use of the information to criminally investigate or prosecute any alcohol or drug abuse patient.[facility] HospitalIn the event this information is protected by the Federal Confidentiality of Alcohol and Drug Abuse Patient Records regulations: The Federal rules restrict any use of the information to criminally investigate or prosecute any alcohol or drug abuse patient.[facility] HospitalIn the event this information is protected by the Federal Confidentiality of Alcohol and Drug Abuse Patient Records regulations: The Federal rules restrict any use of the information to criminally investigate or prosecute any alcohol or drug abuse patient.[facility] HospitalIn the event this information is protected by the Federal Confidentiality of Alcohol and Drug Abuse Patient Records regulations: The Federal rules restrict any use of the information to criminally investigate or prosecute any alcohol or drug abuse patient.[facility] HospitalIn the event this information is protected by the Federal Confidentiality of Alcohol and Drug Abuse Patient Records regulations: The Federal rules restrict any use of the information to criminally investigate or prosecute any alcohol or drug abuse patient.[facility] HospitalIn the event this information is protected by the Federal Confidentiality of Alcohol and Drug Abuse Patient Records regulations: The Federal rules restrict any use of the information to criminally investigate or prosecute any alcohol or drug abuse patient.[facility] HospitalIn the event this information is protected by the Federal Confidentiality of Alcohol and Drug Abuse Patient Records regulations: The Federal rules restrict any use of the information to criminally investigate or prosecute any alcohol or drug abuse patient.[facility] HospitalIn the event this information is protected by the Federal Confidentiality of Alcohol and Drug Abuse Patient Records regulations: The Federal rules restrict any use of the information to criminally investigate or prosecute any alcohol or drug abuse patient.[facility] HospitalIn the event this information is protected by the Federal Confidentiality of Alcohol and Drug Abuse Patient Records regulations: The Federal rules restrict any use of the information to criminally investigate or prosecute any alcohol or drug abuse patient.[facility] HospitalIn the event this information is protected by the Federal Confidentiality of Alcohol and Drug Abuse Patient Records regulations: The Federal rules restrict any use of the information to criminally investigate or prosecute any alcohol or drug abuse patient.[facility] HospitalIn the event this information is protected by the Federal Confidentiality of Alcohol and Drug Abuse Patient Records regulations: The Federal rules restrict any use of the information to criminally investigate or prosecute any alcohol or drug abuse patient.[facility] HospitalIn the event this information is protected by the Federal Confidentiality of Alcohol and Drug Abuse Patient Records regulations: The Federal rules restrict any use of the information to criminally investigate or prosecute any alcohol or drug abuse patient.[facility] HospitalIn the event this information is protected by the Federal Confidentiality of Alcohol and Drug Abuse Patient Records regulations: The Federal rules restrict any use of the information to criminally investigate or prosecute any alcohol or drug abuse patient.[facility] HospitalIn the event this information is protected by the Federal Confidentiality of Alcohol and Drug Abuse Patient Records regulations: The Federal rules restrict any use of the information to criminally investigate or prosecute any alcohol or drug abuse patient.[facility] HospitalIn the event this information is protected by the Federal Confidentiality of Alcohol and Drug Abuse Patient Records regulations: The Federal rules restrict any use of the information to criminally investigate or prosecute any alcohol or drug abuse patient.[facility] HospitalIn the event this information is protected by the Federal Confidentiality of Alcohol and Drug Abuse Patient Records regulations: The Federal rules restrict any use of the information to criminally investigate or prosecute any alcohol or drug abuse patient.[facility] HospitalIn the event this information is protected by the Federal Confidentiality of Alcohol and Drug Abuse Patient Records regulations: The Federal rules restrict any use of the information to criminally investigate or prosecute any alcohol or drug abuse patient.[facility] HospitalIn the event this information is protected by the Federal Confidentiality of Alcohol and Drug Abuse Patient Records regulations: The Federal rules restrict any use of the information to criminally investigate or prosecute any alcohol or drug abuse patient.[facility] HospitalIn the event this information is protected by the Federal Confidentiality of Alcohol and Drug Abuse Patient Records regulations: The Federal rules restrict any use of the information to criminally investigate or prosecute any alcohol or drug abuse patient.[facility] HospitalIn the event this information is protected by the Federal Confidentiality of Alcohol and Drug Abuse Patient Records regulations: The Federal rules restrict any use of the information to criminally investigate or prosecute any alcohol or drug abuse patient.[facility] Reason for Visit (unrecogniz ed section and content) Reason Comments Recheck Reason Comments Leg Pain R espinoza pain x2 night s Reason Comments Recheck Reason Comments Orders Reason Comments Medication Problem Reason Comments Results Reason Comments Clinical Update Reason Comments Follow Up [facility] Reason Comments HH SN POC Reason Comments plan of care Reason Comments Results Reason Comments 8 week follow up Reason Comments Follow Up Reason Onset Date Comments Refill Request 11/21/2022 Reason Comments Medication clarification Reason Comments 6 month f/u Specialty Diagnoses / Procedures Referred By Contac t Referred To Contact Diagnoses Chronic combined systolic and diastolic CHF, NYHA class 3 (CMS/HCC) Dyspnea on exertion Procedures ECG 12 Lead Tamika Jennings MD [address] [facility], [facility] [address] [place] [address] Referral ID Status Reason Start Date Expiration Date V isits Requested Visits Authorized [id number] Pending Review 12/28/2022 06/26/2023 1 1 Reason Comments F/U 6 months Reason Comments 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 [address] [place] [address] Referral ID Status Reason Start Date Expiration Date Visits Requested Visits Authorized [id number] Authorized Perform Procedure 04/17/2023 04/16/2024 1 1 Reason Comments Genetic Testing Form Reason Comments 4 month follow-up Reason Onset Date Comments Community Monitoring Outreach 05/02/2023 CD M Enrollment Reason Comments Medication Update Mounjaro Reason Onset Date Comments Community Monitoring Outreach 05/14/2023 Fo llow up Specialty Diagnoses / Procedures Referred By Contac t Referred To Contact Cardiology Diagnoses ICD (implantable cardioverter-defibrillator) in place Paroxysmal ventricular tachycardia (CMS/HCC) Procedures Cardiac Device Check - In Clinic Claus Browne MD [address] [place] [address] Referral ID Status Reason Start Date Expiration Date Visits Requested Visits Authorized [id number] Pending Review Perform Procedure 05/14/2023 05/13/2024 1 1 Reason Onset Date Comments Community Monitoring Outreach 05/15/2023 Fo llow up Reason Onset Date Comments Community Monitorig Outreach 05/22/2023 Fol low up Care Teams (unrecognized sec tion and content) Barrel Straightener Relationship Specialty Start Date End Date Neel Turpin MD [address] [facility] [place] [address] PCP - General 06/17/09 Barrel Straightener Relationship Specialty Start Date End Date Neel Turpin MD [address] [facility] [place] [address] PCP - General 06/17/09 Barrel Straightener Relationship Specialty Start Date End Date Neel Turpin MD [address] [facility] [place] [address] PCP - General 06/17/09 Barrel Straightener Relationship Specialty Start Date End Date Neel Turpin MD [address] [facility] [place] [address] PCP - General 06/17/09 Barrel Straightener Relationship Specialty Start Date End Date Neel Turpin MD [address] [facility] [place] [address] PCP - General 06/17/09 Barrel Straightener Relationship Specialty Start Date End Date Neel Turpin MD [address] [facility] [place] [address] PCP - General 06/17/09 Barrel Straightener Relationship Specialty Start Date End Date Neel Turpin MD [address] [place] [address] PCP - General 06/17/09 Team Status: Inactive Member Role Status Dates Issa Bonilla MD Attending Provider Active Barrel Straightener Relationship Specialty Start Date End Date Neel Turpin MD [address] [facility] [place] [address] PCP - General 06/17/09 Barrel Straightener Relationship Specialty Start Date End Date Neel Turpin MD [address] [facility] [place] [address] PCP - General 06/17/09 Barrel Straightener Relationship Specialty Start Date End Date Neel Turpin MD [address] [facility] [place] [address] PCP - General 06/17/09 Barrel Straightener Relationship Specialty Start Date End Date Neel Turpin MD [address] [facility] [place] [address] PCP - General 06/17/09 Barrel Straightener Relationship Specialty Start Date End Date Neel Turpin MD [address] [facility] [place] [address] PCP - General 06/17/09 Barrel Straightener Relationship Specialty Start Date End Date Neel Turpin MD [address] [facility] [place] [address] PCP - General 06/17/09 Barrel Straightener Relationship Specialty Start Date End Date Neel Turpin MD [address] [facility] [place] [address] PCP - General 06/17/09 Barrel Straightener Relationship Specialty Start Date End Date Neel Turpin MD [address] [facility] [place] [address] PCP - General 06/17/09 Barrel Straightener Relationship Specialty Start Date End Date Neel Turpin MD [address] [facility] [place] [address] PCP - General 03/18/18 Barrel Straightener Relationship Specialty Start Date End Date Neel Turpin MD [address] [facility] [place] [address] PCP - General 06/17/09 Barrel Straightener Relationship Specialty Start Date End Date Neel Turpin MD [address] [facility] [place] [address] PCP - General 03/18/18 Barrel Straightener Relationship Specialty Start Date End Date Neel Turpin MD [address] [facility] [place] [address] PCP - General 06/17/09 Barrel Straightener Relationship Specialty Start Date End Date Neel Turpin MD [address] [facility] [place] [address] PCP - General 06/17/09 Tessa Dias, Formerly [facility] [address] [facility] [place] [address] Pharmacist Pharmacy 02/14/23 Barrel Straightener Relationship Specialty Start Date End Date Neel Turpin MD [address] [facility] [place] [address] PCP - General 06/17/09 Tessa Dias, Formerly [facility] [address] [place] [address] Pharmacist Pharmacy 02/14/23 Barrel Straightener Relationship Specialty Start Date End Date Neel Turpin MD [address] [facility] [place] [address] PCP - General 03/18/18 Barrel Straightener Relationship Specialty Start Date End Date Neel Turpin MD [address] [place] [address] PCP - General 03/18/18 Barrel Straightener Relationship Specialty Start Date End Date Neel Turpin MD [address] [place] [address] PCP - General 06/17/09 [facility] [address] [place] [address] Pharmacist Pharmacy 02/14/23 Barrel Straightener Relationship Specialty Start Date End Date Neel Turpin MD [address] [place] [address] PCP - General 06/17/09 [facility] [address] [place] [address] Pharmacist Pharmacy 02/14/23 Barrel Straightener Relationship Specialty Start Date End Date Neel Turpin MD [address] [place] [address] PCP - General 06/17/09 [facility] [address] [place] [address] Pharmacist Pharmacy 02/14/23 Barrel Straightener Relationship Specialty Start Date End Date Neel Turpin MD [address] [place] [address] PCP - General 06/17/09 Tessa Dias, Formerly [facility] [address] [place] [address] Pharmacist Pharmacy 02/14/23 Annalisa Stephen, SYLVAIN [address] [place] [address] Se[employer]ograph Computer 05/03/23 Barrel Straightener Relationship Specialty Start Date End Date Neel Turpin MD [address] [place] [address] PCP - General 06/17/09 [facility] [address] [place] [address] Pharmacist Pharmacy 02/14/23 Annalisa Stephen, SY[address]VAIN [address] [place] [address] Se[employer]ograph Computer 05/03/23 Barrel Straightener Relationship Specialty Start Date End Date Neel Turpin MD [address] [place] [address] PCP - General 06/17/09 [facility] [address] [place] [address] Pharmacist Pharmacy 02/14/23 Annalisa Stephen, SYLVAIN [address] [place] [address] Seismograph Computer 05/03/23 Barrel Straightener Relationship Specialty Start Date End Date Neel Turpin MD [address] [place] [address] PCP - General 03/18/18 Goals (unrecognized section and content) Goals may be documented in a n alternate section <item> Privacy Markings (unrecogniz ed section and content) Section Author: Eneida Soriano PROHIBITION ON REDISCLOSURE OF CONFIDENTIAL INFORMATION This notice accompanies a disclosure of information concerning a client made to you with the consent of such client. FOR RECORDS PERTAINING TO PATIENTS WHO ARE OR HAVE BEEN ENROLLED IN A CHEMICAL DEPENDENCY/SUBSTANCEABUSE PROGRAM, SOME INFORMATION MAY BE OMITTED. This clinical summary was aggregated from multiple sources. Caution should be exercised in using it in the provision of clinical care. This summary normalizes information from multiple sources, and as a consequence, information in this document may materially change the coding, format and clinical context of patient data. In addition, data may be omitted in some cases. CLINICAL DECISIONS SHOULD BE BASED ON THE PRIMARY CLINICAL RECORDS. [employer] [facility]. provides no warranty or guarantee of the accuracy or completeness of information in this document.
[2023-05-24 09:16] LABS: Albumin, Serum 3.4 g/dL (3.2-5.0); BUN 46 mg/dL (7-18); BUN/Creat Ratio 20.8 RATIO (10-20); Calcium,Total 9.2 mg/dL (8.5-10.1); Chloride 103 mmol/L (98-107); Creatinine, Serum 2.21 mg/dL (0.55-1.02); EST Glomerular Filtration Rate 23 mL/min (>60); Est Glom Filt Rate - Afr Amer 28 mL/min (>60); Glucose 96 mg/dL (74-106); Phosphorus 2.6 mg/dL (2.5-4.9); Potassium 4.2 mmol/L (3.5-5.1); Sodium Level 137 mmol/L (136-145)
== END 2023-05-24 08:47 | disposition home or self-care (01) ==
LOC: MEDOUTP 08:46
PROVIDERS: PCP Internal Medicine; Referring Provider Internal Medicine Nephrology; Visit Provider Internal Medicine Nephrology
DX: N18.32 Chronic kidney disease, stage 3b (principal); D63.1 Anemia in chronic kidney disease
CPT/HCPCS: 36415; 80069; 85014; 85018

== ENCOUNTER 2023-06-21 08:52 | Outpatient (CLI) | payer MEDICARE, OTHER, SELFPAY ==
[2023-06-21 09:26] LABS: Hematocrit 36.6 % (37-47); Hemoglobin 11.5 g/dL (12.0-15.0)
[2023-06-21 09:48] LABS: Albumin, Serum 3.5 g/dL (3.2-5.0); BUN 36 mg/dL (7-18); BUN/Creat Ratio 17.1 RATIO (10-20); Calcium,Total 9.3 mg/dL (8.5-10.1); Chloride 105 mmol/L (98-107); Creatinine, Serum 2.11 mg/dL (0.55-1.02); EST Glomerular Filtration Rate 24 mL/min (>60); Est Glom Filt Rate - Afr Amer 29 mL/min (>60); Ferritin 118 ng/mL (8-252); Glucose 97 mg/dL (74-106); Iron 78 ug/dL (50-170); Iron Binding Capacity,Total 426 ug/dL (250-450); PERCENT IRON SATURATION 18.3 % (15.0-55.0); Phosphorus 2.6 mg/dL (2.5-4.9); Potassium 4.7 mmol/L (3.5-5.1); Sodium Level 135 mmol/L (136-145)
== END 2023-06-21 08:53 | disposition home or self-care (01) ==
LOC: MEDOUTP 08:52
PROVIDERS: PCP Internal Medicine; Referring Provider Internal Medicine Nephrology; Visit Provider Internal Medicine Nephrology
DX: N18.32 Chronic kidney disease, stage 3b (principal); D63.1 Anemia in chronic kidney disease
CPT/HCPCS: 36415; 80069; 82728; 83540; 83550; 85014; 85018

== ENCOUNTER 2023-07-17 09:00 | Outpatient (CLI) | payer MEDICARE, OTHER, SELFPAY ==
[2023-07-17 09:22] LABS: Hematocrit 30.9 % (37-47); Hemoglobin 9.4 g/dL (12.0-15.0)
[2023-07-17 09:35] LABS: Albumin, Serum 3.3 g/dL (3.2-5.0); BUN 33 mg/dL (7-18); BUN/Creat Ratio 16.3 RATIO (10-20); Calcium,Total 9.1 mg/dL (8.5-10.1); Chloride 106 mmol/L (98-107); Creatinine, Serum 2.02 mg/dL (0.55-1.02); EST Glomerular Filtration Rate 25 mL/min (>60); Est Glom Filt Rate - Afr Amer 31 mL/min (>60); Glucose 64 mg/dL (74-106); Phosphorus 3.1 mg/dL (2.5-4.9); Potassium 4.1 mmol/L (3.5-5.1); Sodium Level 139 mmol/L (136-145)
[2023-07-17 09:42] VITALS: BP 104/42; PULSE 82; RESP 16; TEMP 36.2; O2SAT 93; BMI 45.3
[2023-07-17] MEDS: Epoetin Alfa-EPBX 20,000 unit/ml 13000 UNIT SC (09:55)
== END 2023-07-17 09:01 | disposition home or self-care (01) ==
LOC: MEDOUTP 09:00
PROVIDERS: PCP Internal Medicine; Referring Provider Internal Medicine Nephrology; Visit Provider Internal Medicine Nephrology
DX: N18.32 Chronic kidney disease, stage 3b (principal); D63.1 Anemia in chronic kidney disease
CPT/HCPCS: 36415; 80069; 85014; 85018; 96372; Q5106

== ENCOUNTER 2023-08-16 08:55 | Outpatient (CLI) | payer MEDICARE, OTHER, SELFPAY ==
[2023-08-16 09:23] LABS: Hematocrit 29.7 % (37-47); Hemoglobin 9.2 g/dL (12.0-15.0)
[2023-08-16 09:37] LABS: Albumin, Serum 3.3 g/dL (3.2-5.0); BUN 39 mg/dL (7-18); BUN/Creat Ratio 18.1 RATIO (10-20); Calcium,Total 9.8 mg/dL (8.5-10.1); Chloride 107 mmol/L (98-107); Creatinine, Serum 2.16 mg/dL (0.55-1.02); EST Glomerular Filtration Rate 23 mL/min (>60); Est Glom Filt Rate - Afr Amer 28 mL/min (>60); Glucose 79 mg/dL (74-106); Iron 66 ug/dL (50-170); Iron Binding Capacity,Total 286 ug/dL (250-450); Phosphorus 3.1 mg/dL (2.5-4.9); Potassium 4.3 mmol/L (3.5-5.1); Sodium Level 139 mmol/L (136-145)
[2023-08-16 09:43] VITALS: BP 105/55; PULSE 70; RESP 16; TEMP 36.6; O2SAT 97; BMI 45.3
[2023-08-16] MEDS: Epoetin Alfa-EPBX 20,000 unit/ml 13000 UNIT SC (09:47)
[2023-08-16 17:20] LABS: Xtra Tube EP Lab EXTRA TUBE
== END 2023-08-16 23:59 | disposition home or self-care (01) ==
LOC: MEDOUTP 08:55
PROVIDERS: PCP Internal Medicine; Referring Provider Internal Medicine Nephrology; Visit Provider Internal Medicine Nephrology
DX: N18.32 Chronic kidney disease, stage 3b (principal); D63.1 Anemia in chronic kidney disease
CPT/HCPCS: 80069; 83540; 83550; 85014; 85018; 96372; Q5106

== ENCOUNTER 2023-09-13 08:24 | Outpatient (CLI) | payer MEDICARE, OTHER, SELFPAY ==
[2023-09-13 10:09] LABS: Hemoglobin 9.5 g/dL (12.0-15.0); Mean Corp Hgb Conc 31.7 g/dL (32-36); Mean Corpuscular Hgb 30.7 pg (27.0-32.0); Mean Corpuscular Volume 97.1 fL (81-99); Mean Platelet Vol. 9.2 fl (6.2-12.0); Platelet Count 215 K/mm3 (150-450); Red Blood Count 3.09 M/mm3 (4.2-5.4); White Blood Count 7.9 K/mm3 (4.4-11.0)
[2023-09-13 10:25] VITALS: BP 116/43; PULSE 86; RESP 16; TEMP 36.4; O2SAT 95
[2023-09-13 10:26] LABS: Vitamin D,25 Hydroxy 34.9 ng/mL
[2023-09-13] MEDS: Epoetin Alfa-EPBX 20,000 unit/ml 20000 UNIT SC (10:32)
[2023-09-13 10:33] LABS: Protein, Urine (Random) 17.1 mg/dL (<11.9); Protein:Creat Ratio 747 mg/g CRE (0-200)
[2023-09-13 10:36] LABS: PTHIN 123.6 pg/mL (18.4-80.1)
[2023-09-15 08:15] LABS: Albumin, Serum 3.3 g/dL (3.2-5.0); BUN 50 mg/dL (7-18); BUN/Creat Ratio 22.6 RATIO (10-20); Calcium,Total 9.3 mg/dL (8.5-10.1); Chloride 104 mmol/L (98-107); Creatinine, Serum 2.21 mg/dL (0.55-1.02); EST Glomerular Filtration Rate 23 mL/min (>60); Est Glom Filt Rate - Afr Amer 28 mL/min (>60); Glucose 111 mg/dL (74-106); Phosphorus 3.5 mg/dL (2.5-4.9); Potassium 4.9 mmol/L (3.5-5.1); Sodium Level 140 mmol/L (136-145)
== END 2023-09-13 23:59 | disposition home or self-care (01) ==
PROVIDERS: PCP Internal Medicine; Referring Provider Internal Medicine Nephrology; Visit Provider Internal Medicine Nephrology
DX: N25.81 Secondary hyperparathyroidism of renal origin (principal); N18.32 Chronic kidney disease, stage 3b; D63.1 Anemia in chronic kidney disease; R80.9 Proteinuria, unspecified
CPT/HCPCS: 36415; 80069; 82306; 82570; 83970; 84156; 85027; 96372; Q5106

== ENCOUNTER 2023-10-09 08:45 | Outpatient (CLI) | payer MEDICARE, OTHER, SELFPAY ==
[2023-10-09 09:16] LABS: Hematocrit 34.2 % (37-47); Hemoglobin 10.8 g/dL (12.0-15.0); Mean Corp Hgb Conc 31.6 g/dL (32-36); Mean Corpuscular Hgb 30.4 pg (27.0-32.0); Mean Corpuscular Volume 96.3 fL (81-99); Mean Platelet Vol. 9.1 fl (6.2-12.0); Platelet Count 210 K/mm3 (150-450); RBC Distribution Width CV 14.3 % (11.6-14.6); RBC Distribution Width SD 50.8 fl (35.1-43.9); Red Blood Count 3.55 M/mm3 (4.2-5.4); White Blood Count 7.9 K/mm3 (4.4-11.0)
[2023-10-09 09:33] LABS: ALB/GLOB Ratio 0.9 RATIO (0.9-2.4); AST(SGOT) 23 U/L (15-37); Alanine Aminotransfer ALT/SGPT 40 U/L (13-56); Albumin, Serum 3.3 g/dL (3.2-5.0); Alkaline Phosphatase 84 U/L (45-117); Anion Gap 8 (5-15); BUN 46 mg/dL (7-18); BUN/Creat Ratio 18.9 RATIO (10-20); Calcium,Total 9.4 mg/dL (8.5-10.1); Chloride 105 mmol/L (98-107); Cholesterol 94 mg/dL (200); Creatinine, Serum 2.44 mg/dL (0.55-1.02); EST Glomerular Filtration Rate 20 mL/min (>60); Est Glom Filt Rate - Afr Amer 25 mL/min (>60); Ferritin 60 ng/mL (8-252); Globulin 3.5 g/dL (2.2-4.2); Glucose 133 mg/dL (74-106); High Density Lipoprotein 42 mg/dL; Iron 75 ug/dL (50-170); Iron Binding Capacity,Total 306 ug/dL (250-450); PERCENT IRON SATURATION 24.5 % (15.0-55.0); Phosphorus 3.5 mg/dL (2.5-4.9); Potassium 4.7 mmol/L (3.5-5.1); Protein, Total 6.8 g/dL (6.4-8.2); Sodium Level 139 mmol/L (136-145); Triglycerides 144 mg/dL; Very Low Density Lipoprotein 29 mg/dL (5-40); Vitamin D,25 Hydroxy 33.2 ng/mL
[2023-10-09 09:37] LABS: PTHIN 62.9 pg/mL (18.4-80.1)
[2023-10-09 10:19] LABS: Microalbumin,Random Urine 55.4 mg/L (NO RANGE EST.); Microalbumin:Creatinine Ratio 187.8 mg/g CRE (<30 mg/g CRE); Protein, Urine (Random) 21.4 mg/dL (<11.9); Protein:Creat Ratio 725 mg/g CRE (0-200)
== END 2023-10-09 23:59 | disposition home or self-care (01) ==
PROVIDERS: PCP Internal Medicine; Referring Provider Internal Medicine Nephrology; Visit Provider Internal Medicine Nephrology
DX: N18.32 Chronic kidney disease, stage 3b (principal); D63.1 Anemia in chronic kidney disease; N25.81 Secondary hyperparathyroidism of renal origin; R80.9 Proteinuria, unspecified
CPT/HCPCS: 36415; 80053; 80061; 82043; 82306; 82570; 82728; 83036; 83540; 83550; 83970; 84100; 84156; 85027

== ENCOUNTER 2023-11-06 08:55 | Outpatient (CLI) | payer MEDICARE, OTHER, SELFPAY ==
[2023-11-06 09:15] LABS: Hematocrit 37.1 % (37-47); Hemoglobin 11.6 g/dL (12.0-15.0)
[2023-11-06 09:30] LABS: Albumin, Serum 3.3 g/dL (3.2-5.0); BUN 41 mg/dL (7-18); BUN/Creat Ratio 17.8 RATIO (10-20); Calcium,Total 9.9 mg/dL (8.5-10.1); Chloride 106 mmol/L (98-107); EST Glomerular Filtration Rate 22 mL/min (>60); Est Glom Filt Rate - Afr Amer 26 mL/min (>60); Glucose 144 mg/dL (74-106); Phosphorus 3.9 mg/dL (2.5-4.9); Potassium 4.3 mmol/L (3.5-5.1); Sodium Level 137 mmol/L (136-145)
== END 2023-11-06 23:59 | disposition home or self-care (01) ==
LOC: MEDOUTP 08:55
PROVIDERS: PCP Internal Medicine; Referring Provider Internal Medicine Nephrology; Visit Provider Internal Medicine Nephrology
DX: N18.32 Chronic kidney disease, stage 3b (principal); D63.1 Anemia in chronic kidney disease
CPT/HCPCS: 36415; 80069; 85014; 85018

== ENCOUNTER 2023-12-09 08:57 | Outpatient (CLI) | payer MEDICARE, OTHER, SELFPAY ==
[2023-12-09 09:22] LABS: Hematocrit 36.1 % (37-47); Hemoglobin 11.4 g/dL (12.0-15.0)
[2023-12-09 09:33] LABS: BUN 41 mg/dL (7-18); BUN/Creat Ratio 17.5 RATIO (10-20); Calcium,Total 9.8 mg/dL (8.5-10.1); Chloride 102 mmol/L (98-107); Creatinine, Serum 2.34 mg/dL (0.55-1.02); EST Glomerular Filtration Rate 21 mL/min (>60); Est Glom Filt Rate - Afr Amer 26 mL/min (>60); Glucose 196 mg/dL (74-106); Phosphorus 3.5 mg/dL (2.5-4.9); Potassium 4.3 mmol/L (3.5-5.1); Sodium Level 137 mmol/L (136-145)
== END 2023-12-09 23:59 | disposition home or self-care (01) ==
LOC: MEDOUTP 08:57
PROVIDERS: PCP Internal Medicine; Referring Provider Internal Medicine Nephrology; Visit Provider Internal Medicine Nephrology
DX: N18.32 Chronic kidney disease, stage 3b (principal); D63.1 Anemia in chronic kidney disease
CPT/HCPCS: 36415; 80069; 85014; 85018

== ENCOUNTER 2024-01-01 09:23 | Outpatient (CLI) | payer MEDICARE, OTHER, SELFPAY ==
[2024-01-01 09:45] LABS: Hematocrit 33.2 % (37-47); Hemoglobin 10.9 g/dL (12.0-15.0)
[2024-01-01 10:06] LABS: Albumin, Serum 3.3 g/dL (3.2-5.0); BUN 49 mg/dL (7-18); BUN/Creat Ratio 21.6 RATIO (10-20); Calcium,Total 9.7 mg/dL (8.5-10.1); Chloride 105 mmol/L (98-107); Creatinine, Serum 2.27 mg/dL (0.55-1.02); EST Glomerular Filtration Rate 22 mL/min (>60); Est Glom Filt Rate - Afr Amer 27 mL/min (>60); Glucose 185 mg/dL (74-106); Iron 73 ug/dL (50-170); Phosphorus 4.7 mg/dL (2.5-4.9); Potassium 4.1 mmol/L (3.5-5.1); Sodium Level 137 mmol/L (136-145)
== END 2024-01-01 23:59 | disposition home or self-care (01) ==
LOC: MEDOUTP 09:24
PROVIDERS: PCP Internal Medicine; Referring Provider Internal Medicine Nephrology; Visit Provider Internal Medicine Nephrology
DX: N18.32 Chronic kidney disease, stage 3b (principal); D63.1 Anemia in chronic kidney disease
CPT/HCPCS: 36415; 80069; 83540; 85014; 85018

== ENCOUNTER 2024-01-29 09:29 | Outpatient (CLI) | payer MEDICARE, OTHER, SELFPAY ==
[2024-01-29 10:03] LABS: Hematocrit 35.5 % (37-47); Hemoglobin 11.5 g/dL (12.0-15.0)
[2024-01-29 10:13] LABS: Albumin, Serum 3.3 g/dL (3.2-5.0); BUN 45 mg/dL (7-18); BUN/Creat Ratio 19.1 RATIO (10-20); Calcium,Total 9.3 mg/dL (8.5-10.1); Chloride 105 mmol/L (98-107); Creatinine, Serum 2.36 mg/dL (0.55-1.02); EST Glomerular Filtration Rate 21 mL/min (>60); Est Glom Filt Rate - Afr Amer 26 mL/min (>60); Glucose 281 mg/dL (74-106); Phosphorus 2.8 mg/dL (2.5-4.9); Sodium Level 136 mmol/L (136-145)
== END 2024-01-29 23:59 | disposition home or self-care (01) ==
LOC: MEDOUTP 09:29
PROVIDERS: PCP Internal Medicine; Referring Provider Internal Medicine Nephrology; Visit Provider Internal Medicine Nephrology
DX: N18.32 Chronic kidney disease, stage 3b (principal); D63.1 Anemia in chronic kidney disease
CPT/HCPCS: 36415; 80069; 85014; 85018

== ENCOUNTER 2024-02-26 09:30 | Outpatient (CLI) | payer MEDICARE, OTHER, SELFPAY ==
[2024-02-26 09:49] LABS: Hematocrit 35.7 % (37-47)
[2024-02-26 10:10] LABS: Albumin, Serum 3.5 g/dL (3.2-5.0); BUN 43 mg/dL (7-18); BUN/Creat Ratio 17.3 RATIO (10-20); Calcium,Total 9.7 mg/dL (8.5-10.1); Chloride 105 mmol/L (98-107); Creatinine, Serum 2.48 mg/dL (0.55-1.02); EST Glomerular Filtration Rate 20 mL/min (>60); Est Glom Filt Rate - Afr Amer 24 mL/min (>60); Glucose 210 mg/dL (74-106); Potassium 3.9 mmol/L (3.5-5.1); Sodium Level 137 mmol/L (136-145)
== END 2024-02-26 23:59 | disposition home or self-care (01) ==
PROVIDERS: PCP Internal Medicine; Referring Provider Internal Medicine Nephrology; Visit Provider Internal Medicine Nephrology
DX: N18.32 Chronic kidney disease, stage 3b (principal); D63.1 Anemia in chronic kidney disease
CPT/HCPCS: 36415; 80069; 85014; 85018

== ENCOUNTER 2024-03-25 09:02 | Outpatient (CLI) | payer MEDICARE, OTHER, SELFPAY ==
[2024-03-25 09:33] LABS: Hematocrit 36.4 % (37-47); Hemoglobin 11.9 g/dL (12.0-15.0); Mean Corp Hgb Conc 32.7 g/dL (32-36); Mean Corpuscular Hgb 31.6 pg (27.0-32.0); Mean Corpuscular Volume 96.8 fL (81-99); Mean Platelet Vol. 9.5 fl (6.2-12.0); Platelet Count 224 K/mm3 (150-450); RBC Distribution Width CV 14.1 % (11.6-14.6); RBC Distribution Width SD 49.5 fl (35.1-43.9); Red Blood Count 3.76 M/mm3 (4.2-5.4); White Blood Count 9.2 K/mm3 (4.4-11.0)
[2024-03-25 09:57] LABS: Protein:Creat Ratio 870 mg/g CRE (0-200)
[2024-03-25 10:03] LABS: PTHIN 207.6 pg/mL (18.4-80.1)
[2024-03-25 10:41] LABS: Albumin, Serum 3.5 g/dL (3.2-5.0); BUN 38 mg/dL (7-18); BUN/Creat Ratio 16.2 RATIO (10-20); Calcium,Total 9.6 mg/dL (8.5-10.1); Chloride 105 mmol/L (98-107); Creatinine, Serum 2.34 mg/dL (0.55-1.02); EST Glomerular Filtration Rate 21 mL/min (>60); Est Glom Filt Rate - Afr Amer 26 mL/min (>60); Ferritin 94 ng/mL (8-252); Glucose 271 mg/dL (74-106); Iron 71 ug/dL (50-170); Iron Binding Capacity,Total 279 ug/dL (250-450); PERCENT IRON SATURATION 25.4 % (15.0-55.0); Phosphorus 3.4 mg/dL (2.5-4.9); Potassium 4.6 mmol/L (3.5-5.1); Sodium Level 134 mmol/L (136-145)
[2024-03-25 10:42] LABS: Vitamin D,25 Hydroxy 26.5 ng/mL
[2024-03-25 11:54] LABS: Bacteria 0 SEEN /hpf (None Seen); Mucous, Urine 0 SEEN /hpf (<or=2+); Red Blood Cells-Urine 0 SEEN /hpf (0-5)
[2024-03-25 12:07] LABS: Color, Urine Straw (Yellow); Glucose, Dipstick 1000 mg/dl (Normal); Ketone-Dipstick Negative (Negative); Leukocyte Esterase-Dipstick 25 /ul (Negative); Nitrite-Dipstick Negative (Negative); Occult Blood-Urine Negative /ul (Negative); Protein-Dipstick 15 mg/dl (Negative); Urine Bilirubin Dipstick Negative (Negative); Urine Clarity Clear (Clear); Urine Urobilinogen Normal (Normal)
[2024-03-25 12:23] LABS: Squamous Epithelial Cells - UA 0-5 SEEN /hpf (5-10); White Blood Cells 0-5 SEEN /hpf (0-5)
== END 2024-03-25 23:59 | disposition home or self-care (01) ==
LOC: MEDOUTP 09:03
PROVIDERS: Nurse Practitioner; PCP Internal Medicine; Referring Provider Internal Medicine Nephrology; Visit Provider Internal Medicine Nephrology
DX: N18.32 Chronic kidney disease, stage 3b (principal); D63.1 Anemia in chronic kidney disease; N25.81 Secondary hyperparathyroidism of renal origin; R35.0 Frequency of micturition; R80.9 Proteinuria, unspecified
CPT/HCPCS: 36415; 80069; 81001; 82306; 82570; 82728; 83540; 83550; 83970; 84156; 85027; 87077; 87086; 87088; 87186

== ENCOUNTER 2024-04-21 10:20 | Outpatient (CLI) | payer MEDICARE, OTHER, SELFPAY ==
[2024-04-21 10:54] LABS: Hematocrit 36.4 % (37-47); Hemoglobin 11.7 g/dL (12.0-15.0)
[2024-04-21 11:22] LABS: Albumin, Serum 3.2 g/dL (3.2-5.0); BUN 41 mg/dL (7-18); BUN/Creat Ratio 21.2 RATIO (10-20); Calcium,Total 9.4 mg/dL (8.5-10.1); Chloride 104 mmol/L (98-107); Creatinine, Serum 1.93 mg/dL (0.55-1.02); EST Glomerular Filtration Rate 27 mL/min (>60); Est Glom Filt Rate - Afr Amer 32 mL/min (>60); Glucose 170 mg/dL (74-106); Phosphorus 3.3 mg/dL (2.5-4.9); Potassium 4.3 mmol/L (3.5-5.1); Sodium Level 138 mmol/L (136-145)
== END 2024-04-21 23:59 | disposition home or self-care (01) ==
PROVIDERS: PCP Internal Medicine; Referring Provider Internal Medicine Nephrology; Visit Provider Internal Medicine Nephrology
DX: N18.32 Chronic kidney disease, stage 3b (principal); D63.1 Anemia in chronic kidney disease
CPT/HCPCS: 80069; 85014; 85018

== ENCOUNTER 2024-04-28 09:19 | Inpatient (IN) | payer MEDICARE, OTHER, SELFPAY ==
[2024-04-28] VITALS (7 sets, daily range): BP systolic 88–127; BP diastolic 65–74; PULSE 86–99; RESP 15–16; TEMP 36.3–36.7; O2SAT 96–100; BMI 48.4; BMI 46.6
--- NOTE | 2024-04-28 09:26 | RAD_ITS ---
PROCEDURE: SHOULDER MIN 2 VIEWS REASON FOR EXAM: Trauma. TECHNIQUE: Four view right shoulder series. COMPARISON: Right shoulder study of 01/23/2018. RAD/Shoulder min 2 Views IMPRESSION: Prior resection of the distal right clavicle, with stable/satisfactory alignmen t noted. Advanced right glenohumeral joint osteoarthritic changes have progressed since the prior study, with increased reactive changes and deformities in both sides of the articulation, as well as severe joint narr owing. A loose intra-articular body projects superior to the lateral right humeral hea d. No acute fracture or dislocation is seen. If clinical concern persists, short-term follow-up imaging may be obtained to r ule out a currently occult fracture. Reading Location: [id number]
--- NOTE | 2024-04-28 09:26 | RAD_ITS ---
PROCEDURE: HIP, UNI W/ PELVIS 2-3 VIEWS REASON FOR EXAM: Trauma. TECHNIQUE: Four view right hip to include the AP pelvis. COMPARISON: None. RAD/HIP, UNI W/ Pelvis 2-3 Views IMPRESSION: A markedly comminuted fracture of the right femoral intertrochanteric region is seen, extending to the very proximal shaft and lateral neck. Minimal degenerative changes are seen of the hip joints. Sacroiliac joint demo nstrate mild degenerative changes. Prominent degenerative changes are seen of the visualized lower lumbar spine. Reading Location: [id number]
--- NOTE | 2024-04-28 09:26 | CT_ITS ---
EXAM: CT Head Without Intravenous Contrast CLINICAL INDICATION: TECHNIQUE: Axial computed tomography images of the head/brain without intravenous contrast. This CT exam was performed using one or more of the following dose reduction techniques: automated exposure control, adjustment of the mA and/or kV according to patient size, and/or use of iterative reconstruction technique. COMPARISON: No relevant prior studies available. FINDINGS: BRAIN AND EXTRA-AXIAL SPACES: Hypodense lesion of the right temporal lobe with volume loss. This could be a sequela of prior infarction. Acute on chronic fracture can not be excluded. Further evaluation with MRI is recommended. No significant white matter disease. No acute intracranial hemorrhage. BONES/JOINTS: See above. SOFT TISSUES: Unremarkable. SINUSES: Unremarkable as visualized. No acute sinusitis. MASTOID AIR CELLS: Unremarkable as visualized. No mastoid effusion. CT/Brain/Head without Contrast IMPRESSION: 1. Hypodense lesion of the right temporal lobe with volume loss. This could b e a sequela of prior infarction. Acute on chronic fracture can not be excluded. Further evaluation with MRI is recommended. 2. No acute intracranial hemorrhage. Reading Location: [facility]
--- NOTE | 2024-04-28 09:28 | ED.VIS.FALL ---
HPI HPI - Fall History of Present Illness Chief Complaint: Fall Narrative Narrative: 79-year-old female past medical history of diabetes, hypercholesterolemia, hypertension, chronic kidney disease presents status post fall. She states that she was trying to step on her scale and fell backwards. She does not feel that she hit her head, she denies any loss of consciousness, but has pain in her right hip, and on the top of her right thigh. While EMS reports that she was complaining of right shoulder pain. She denies it currently. Additionally, was thought that she was having bilateral hip pain but she states that she is only having pain on the right that is worse with movement. She denies other injuries. No neck pain. [facility] Medical History Sleep apnea Diabetes Chronic pain Kidney stones Kidney disease DVT (deep venous thrombosis) Home Medications ?Medication ?Instructions ?Recorded ?Last Taken ?Type simvastatin 40 mg tablet 40 mg PO QHS cholesterol 12/16/12 04/27/24 History melatonin 10 mg sublingual tablet 10 mg PO QHS 02/20/18 04/27/24 Rx calcitriol 0.5 mcg capsule 0.5 mcg PO DAILY 08/09/21 04/27/24 History vit C 226 mg-vit E 90 mg-copper 1 cap PO DAILY 08/09/21 04/27/24 History 0.8 mg-zinc oxide-lutein 5 mg capsule (PreserVision Lutein) insulin glargine 100 unit/mL (3 60 unit subcut DAILY 12/25/21 04/27/24 07:00 History mL) subcutaneous pen (Lantus Solostar U-100 Insulin) docusate sodium 100 mg capsule 100 mg PO DAILY PRN stool softener 03/30/22 Unknown History furosemide 20 mg tablet 20 mg PO DAILY 03/30/22 04/27/24 History sennosides 8.6 mg capsule (senna) 8.6 mg PO DAILY PRN constipation 03/30/22 Unknown History fluticasone fur. 100 mcg-umeclid 1 inh inhalation DAILY 05/23/22 04/27/24 History 62.5 mcg-vilant 25 mcg inhalat.powder (Trelegy Ellipta) hydralazine 25 mg tablet 25 mg PO TID 01/30/23 04/27/24 History gabapentin 300 mg capsule 300 mg PO Q12H 04/28/24 04/27/24 History lidocaine 5 % topical patch 2 patch topical DAILY PRN pain, 04/28/24 Unknown History moderate metoprolol succinate 50 mg 50 mg PO DAILY 04/28/24 04/27/24 History tablet,extended release 24 hr tirzepatide 2.5 mg/0.5 mL See Rx Instructions subcut .COMPLEX 04/28/24 04/26/24 History subcutaneous pen injector (Colten) venlafaxine 75 mg capsule,extended 75 mg PO DAILY 04/28/24 04/27/24 History release 24 hr Allergy/AdvReac Type Severity Reaction Status Date / Time levofloxacin (From Levaquin) Allergy Hives Verified 04/28/24 09:27 Sulfa (Sulfonamide Allergy Hives Verified 04/28/24 09:27 Antibiotics) Family History Sister Breast cancer Other Heart disease Prostate cancer Surgical History S/P hysterectomy History of appendectomy History of cholecystectomy Social History household members: none number of children: 2 Smoking Status: Former smoker alcohol intake: never substance use type: does not use additional social history: Lives alone in a house in [facility] Narrative Constitutional: No fever, no chills. HEENT: No sore throat. No neck pain. No loss of vision. No rhinorrhea. Cardiovascular: No chest pain. No palpitations. No pedal edema. Respiratory: No cough, no shortness of breath. Abdominal: No abdominal pain. No nausea. No vomiting. Genitourinary: No dysuria. No hematuria. Musculoskeletal: No myalgias. Right hip pain worse with movement. Pain top of right thigh. Neurologic: No headaches. No dizziness. No lightheadedness. Skin: No rash. No change in color. Psychiatric: No depression. No anxiety. EXAM Physical Exam Narrative Exam Narrative: GCS 15. ABCs intact. Neck soft and supple without meningismus. Cardiovascular examination regular rate and rhythm. Lungs clear to auscultation bilaterally. Abdomen soft, obese, nontender. Pelvis is stable. Diffuse tenderness to palpation right hip. Right lower extremity slightly shortened and held in external rotation. Positive pain with logrolling of femur. Able to flex and extend left knee. Palpable dorsalis pedis pulse, right. Able to raise right arm above shoulder, no tenderness or crepitance. Const Vital Signs: 04/28/24 09:19 04/28/24 09:24 04/28/24 11:15 Temperature 97.4 F L Temperature Source Oral Pulse Rate 99 Respiratory Rate 15 Respiratory Effort Normal Non-Labored Respiratory Depth Normal Respiratory Pattern Normal Blood Pressure 88/67 L 93/74 Blood Pressure Mean 74 80 Pulse Ox 96 96 Oxygen Delivery Method Room Air Room Air 04/28/24 11:21 Temperature 98.1 F Temperature Source Oral Pulse Rate 86 Respiratory Rate 15 Respiratory Effort Respiratory Depth Respiratory Pattern Blood Pressure 93/74 Blood Pressure Mean 80 Pulse Ox 100 Oxygen Delivery Method Room Air MDM MDM MDM Narrative Medical decision making narrative: Differential diagnosis includes but not limited to right hip fracture versus contusion. She also may have a right shoulder contusion versus proximal humerus fracture. Clinically, she has full range of motion of her right shoulder so I have low suspicion for fracture or dislocation. I reviewed and individually interpreted the x-rays of the right hip and pelvis which shows a comminuted intertrochanteric right hip fracture. I reviewed the radiology report which confirms my independent interpretation. I had also obtained a right shoulder x-ray which I individually interpreted, and see no evidence of acute fracture or dislocation. I reviewed the radiology report which also confirms my independent interpretation. As a part of the preoperative labs and workup I obtained a chest x-ray and a single view which shows no acute process, there is no pneumothorax on my independent interpretation, no pneumonia which requires antibiotics. There may be cardiomegaly. I reviewed the radiology report which confirms my independent interpretation. As she had fallen, I reviewed the radiology reports of the CT of the brain and C-spine and there is no evidence of acute fractures either. Her CBC was hemolyzed. It was redrawn. In review of her CMP, she has chronic kidney disease with elevated creatinine at 2.3, and low sodium of 133. EKG was obtained and interpreted by myself independently as normal sinus rhythm with first-degree AV block at [address] changes. No STEMI. Patient states she has not currently established with an orthopedic surgeon. I discussed patient with Dr. Garcia with orthopedics. He agrees with admission to the hospitalist. I will discuss the patient with the hospitalist for admission to medical surgical floor. Patient is in stable condition. History & Record Review Discussion w/independent historian: Patient Lab Data Attestation: I reviewed the patient's lab results. Labs: Laboratory Results - last 24 hr 04/28/24 04/28/24 04/28/24 10:02 10:02 11:00 WBC Cancelled Corrected WBC Cancelled RBC Cancelled Hgb Cancelled Hct Cancelled MCV Cancelled MCH Cancelled MCHC Cancelled RDW Std Deviation Cancelled RDW Coeff of Yoel Cancelled Plt Count Cancelled MPV Cancelled Immature Gran % (Auto) Cancelled Neut % (Auto) Cancelled Lymph % (Auto) Cancelled Grady % (Auto) Cancelled Eos % (Auto) Cancelled Baso % (Auto) Cancelled Absolute Neuts (auto) Cancelled Absolute Lymphs (auto) Cancelled Total Counted Cancelled Neutrophils % (Manual) Cancelled Band Neutrophils % Cancelled Lymphocytes % (Manual) Cancelled Monocytes % (Manual) Cancelled Eosinophils % (Manual) Cancelled Basophils % (Manual) Cancelled Metamyelocytes % Cancelled Myelocytes % Cancelled Promyelocytes % Cancelled Blast Cells % Cancelled Plasma Cell % (Manual) Cancelled Other Cells % Cancelled Nucleated RBC % Cancelled Nucleated RBCs/100 WBC Cancelled Differential Comment Cancelled Diff Path Review Cancelled Hypersegmented Neuts Cancelled Atypical Lymphocytes Cancelled Reactive Lymphocytes Cancelled Smudge Cells Cancelled Toxic Granulation Cancelled Toxic Vacuolation Cancelled Dohle Bodies Cancelled Ami Rods Cancelled Platelet Estimate Cancelled Plt Morphology Comment Cancelled RBC Morphology Cancelled Cancelled Polychromasia Cancelled Hypochromasia Cancelled Basophilic Stippling Cancelled Anisocytosis Cancelled Microcytosis Cancelled Macrocytosis Cancelled Spherocytes Cancelled Sickle Cells Cancelled Target Cells Cancelled Tear Drop Cells Cancelled Ovalocytes Cancelled Stomatocytes Cancelled [place] Bodies Cancelled Nury Cells Cancelled Bite Cells Cancelled Crenated Cell Cancelled Acanthocytes (Spur) Cancelled Rouleaux Cancelled Schistocytes Cancelled Sodium 133 L Potassium 4.4 Chloride 100 Carbon Dioxide 22.0 Anion Gap 11 BUN 54 H Creatinine 2.32 H Estim Creat Clear Calc 24.74 Est GFR (MDRD) Af Amer 26 L Est GFR (MDRD) Non-Af 22 L BUN/Creatinine Ratio 23.3 H Glucose 152 H Calcium 9.8 Blood Type A POSITIVE Antibody Screen NEGATIVE 04/28/24 11:12 WBC 18.1 H Corrected WBC RBC 3.58 L Hgb 11.4 L Hct 34.1 L MCV 95.3 MCH 31.8 MCHC 33.4 RDW Std Deviation 49.0 H RDW Coeff of Yoel 14.1 Plt Count 217 MPV 9.2 Immature Gran % (Auto) 0.900 Neut % (Auto) 86.9 H Lymph % (Auto) 6.6 L Grady % (Auto) 5.0 Eos % (Auto) 0.3 Baso % (Auto) 0.3 Absolute Neuts (auto) 15.7 H Absolute Lymphs (auto) 1.20 Total Counted Neutrophils % (Manual) Band Neutrophils % Lymphocytes % (Manual) Monocytes % (Manual) Eosinophils % (Manual) Basophils % (Manual) Metamyelocytes % Myelocytes % Promyelocytes % Blast Cells % Plasma Cell % (Manual) Other Cells % Nucleated RBC % 0 Nucleated RBCs/100 WBC Differential Comment Diff Path Review Hypersegmented Neuts Atypical Lymphocytes Reactive Lymphocytes Smudge Cells Toxic Granulation Toxic Vacuolation Dohle Bodies Ami Rods Platelet Estimate Plt Morphology Comment RBC Morphology Polychromasia Hypochromasia Basophilic Stippling Anisocytosis Microcytosis Macrocytosis Spherocytes Sickle Cells Target Cells Tear Drop Cells Ovalocytes Stomatocytes [place] Bodies [place] Cells Bite Cells Crenated Cell Acanthocytes (Spur) Rouleaux Schistocytes Sodium Potassium Chloride Carbon Dioxide Anion Gap BUN Creatinine Estim Creat Clear Calc Est GFR (MDRD) Af Amer Est GFR (MDRD) Non-Af BUN/Creatinine Ratio Glucose Calcium Blood Type Antibody Screen Radiography Diagnostic Testing: Clinical Impression(s) from Imaging Studies Brain CT 04/28/24 09:26 IMPRESSION: 1. Hypodense lesion of the right temporal lobe with volume loss. This could be a sequela of prior infarction. Acute on chronic fracture can not be excluded. Further evaluation with MRI is recommended. 2. No acute intracranial hemorrhage. Reading Location: [facility] Hip/Pelvis X-Ray 04/28/24 09:26 IMPRESSION: A markedly comminuted fracture of the right femoral intertrochanteric region is seen, extending to the very proximal shaft and lateral neck. Minimal degenerative changes are seen of the hip joints. Sacroiliac joint demonstrate mild degenerative changes. Prominent degenerative changes are seen of the visualized lower lumbar spine. Reading Location: [address] Shoulder X-Ray 04/28/24 09:26 IMPRESSION: Prior resection of the distal right clavicle, with stable/satisfactory alignment noted. Advanced right glenohumeral joint osteoarthritic changes have progressed since the prior study, with increased reactive changes and deformities in both sides of the articulation, as well as severe joint narrowing. A loose intra-articular body projects superior to the lateral right humeral head. No acute fracture or dislocation is seen. If clinical concern persists, short-term follow-up imaging may be obtained to rule out a currently occult fracture. Reading Location: [address] Cervical Spine CT 04/28/24 09:34 IMPRESSION: 1. No acute fracture. 2. Degenerative changes of the cervical spine as described. Reading Location: [facility] Chest X-Ray 04/28/24 10:35 IMPRESSION: Cardiomegaly. The lungs are clear. Reading Location: [facility] Management Discussion w/another healthcare provider: Hospitalist (Dr. Hanson) and Aluminum Siding Installer (Dr. Garcia, orthopedics) Discharge Plan Dx/Rx/DC Orders Clinical Impression: Fracture of hip, right, closed, Diabetes mellitus, Fall, Contusion of right shoulder Disposition Disposition: Acute Care Hospital [facility] Discharge Date/Time: 04/28/24 13:32
--- NOTE | 2024-04-28 09:34 | CT_ITS ---
EXAM: CT Cervical Spine Without Intravenous Contrast CLINICAL INDICATION: TECHNIQUE: Axial computed tomography images of the cervical spine without intravenous contrast. This CT exam was performed using one or more of the following dose reduction techniques: automated exposure control, adjustment of the mA and/or kV according to patient size, and/or use of iterative reconstruction technique. COMPARISON: No relevant prior studies available. FINDINGS: VERTEBRAE: Degenerative facet arthropathy throughout the cervical spine. No acute fracture. DISCS/SPINAL CANAL/NEURAL FORAMINA: Degenerative disc disease throughout the cervical spine. SOFT TISSUES: Unremarkable. CT/Spine Cervical without Contras IMPRESSION: 1. No acute fracture. 2. Degenerative changes of the cervical spine as described. Reading Location: [facility]
[2024-04-28] MEDS: fentaNYL 100 MCG/2 ML Ampul 50 MCG IV ×2 (09:42→12:53)
--- NOTE | 2024-04-28 10:35 | EKG12_ITS ---
Test Reason : ARRYTH Blood Pressure : */* mmHG Vent. Rate : 93 BPM Atrial Rate : 93 BPM P-R Int : 226 ms QRS Dur : 134 ms QT Int : 400 ms P-R-T Axes : 81 -53 142 degrees QTcB Int : 497 ms Sinus rhythm with 1st degree A-V block Left axis deviation Left bundle branch block Abnormal ECG Confirmed by Gregory June ([id number]), scientific publications editor DIDI DOTSON ([id number]) on 04/29/2024 11:20:55 AM Referred By: Confirmed By: Gregory June
--- NOTE | 2024-04-28 10:35 | RAD_ITS ---
PROCEDURE: CHEST 1 VIEW (PORTABLE) REASON FOR EXAM: Preoperative evaluation. Coronary artery disease. TECHNIQUE: Frontal view of the chest. COMPARISON: Comparison is made with prior study dated January 25, 2018. FINDINGS: EKG electrodes are seen. A left-sided port a catheter is seen with the tip at the junction of the superior vena cava and right atrium. A left-sided dual-chamber pacemaker is seen. Heart size is moderately enlarged. Calcification of the aortic arch. Stable elevation of the right hemidiaphragm. The lungs are clear. Degenerative changes are identified within the thoracic spine. Dextroscoliosis. RAD/Chest 1 View (Portable) IMPRESSION: Cardiomegaly. The lungs are clear. Reading Location: [facility]
[2024-04-28 10:53] LABS: Anion Gap 11 (5-15); BUN 54 mg/dL (7-18); BUN/Creat Ratio 23.3 RATIO (10-20); Calcium,Total 9.8 mg/dL (8.5-10.1); Chloride 100 mmol/L (98-107); Creatinine, Serum 2.32 mg/dL (0.55-1.02); EST Glomerular Filtration Rate 22 mL/min (>60); Est Glom Filt Rate - Afr Amer 26 mL/min (>60); Estimated Creatinine Clearance 24.74 ml/min; Glucose 152 mg/dL (74-106); Potassium 4.4 mmol/L (3.5-5.1); Sodium Level 133 mmol/L (136-145)
[2024-04-28 11:30] LABS: Absolute Neutrophil Count 15.7 X10^3/uL (2.0-7.7); Basophil# 0.06 X10^3/uL; Basophil% 0.3 % (0-1); Eosinophil# 0.05 X10^3/uL; Eosinophils% 0.3 % (0-5); Hematocrit 34.1 % (37-47); Hemoglobin 11.4 g/dL (12.0-15.0); Lymphocyte % 6.6 % (19-41); Mean Corp Hgb Conc 33.4 g/dL (32-36); Mean Corpuscular Hgb 31.8 pg (27.0-32.0); Mean Corpuscular Volume 95.3 fL (81-99); Mean Platelet Vol. 9.2 fl (6.2-12.0); NRBC Flagged by Analyzer 0 % (0-5); Neutrophil % 86.9 % (47-70); Platelet Count 217 K/mm3 (150-450); RBC Distribution Width CV 14.1 % (11.6-14.6); Red Blood Count 3.58 M/mm3 (4.2-5.4); White Blood Count 18.1 K/mm3 (4.4-11.0)
--- NOTE | 2024-04-28 13:17 | CONS.ORTHO ---
HPI Consult Data Date of Consult: 04/28/24 HPI Narrative HPI Narrative: VAL ERICKSON, is a 79 F who presents with a right hip intertrochanteric fracture. Patient fell at home today. They are getting on the scale got off tripped and fell ground-level fall unable to ambulate after that. Was found to have a right hip fracture. Patient has multiple medical comorbidities typically is taken care of at [facility]. Here with her son Hardik. Complaining of right hip pain. [facility] Medical History Sleep apnea Diabetes Chronic pain Kidney stones Kidney disease DVT (deep venous thrombosis) Home Medications ?Medication ?Instructions ?Recorded ?Last Taken ?Type simvastatin 40 mg tablet 40 mg PO QHS cholesterol 12/16/12 04/27/24 History melatonin 10 mg sublingual tablet 10 mg PO QHS 02/20/18 04/27/24 Rx calcitriol 0.5 mcg capsule 0.5 mcg PO DAILY 08/09/21 04/27/24 History vit C 226 mg-vit E 90 mg-copper 1 cap PO DAILY 08/09/21 04/27/24 History 0.8 mg-zinc oxide-lutein 5 mg capsule (PreserVision Lutein) insulin glargine 100 unit/mL (3 60 unit subcut DAILY 12/25/21 04/27/24 07:00 History mL) subcutaneous pen (Lantus Solostar U-100 Insulin) docusate sodium 100 mg capsule 100 mg PO DAILY PRN stool softener 03/30/22 Unknown History furosemide 20 mg tablet 20 mg PO DAILY 03/30/22 04/27/24 History sennosides 8.6 mg capsule (senna) 8.6 mg PO DAILY PRN constipation 03/30/22 Unknown History fluticasone fur. 100 mcg-umeclid 1 inh inhalation DAILY 05/23/22 04/27/24 History 62.5 mcg-vilant 25 mcg inhalat.powder (Trelegy Ellipta) hydralazine 25 mg tablet 25 mg PO TID 01/30/23 04/27/24 History gabapentin 300 mg capsule 300 mg PO Q12H 04/28/24 04/27/24 History lidocaine 5 % topical patch 2 patch topical DAILY PRN pain, 04/28/24 Unknown History moderate metoprolol succinate 50 mg 50 mg PO DAILY 04/28/24 04/27/24 History tablet,extended release 24 hr tirzepatide 2.5 mg/0.5 mL See Rx Instructions subcut .COMPLEX 04/28/24 04/26/24 History subcutaneous pen injector (Colten) venlafaxine 75 mg capsule,extended 75 mg PO DAILY 04/28/24 04/27/24 History release 24 hr Allergy/AdvReac Type Severity Reaction Status Date / Time levofloxacin (From Levaquin) Allergy Hives Verified 04/28/24 09:27 Sulfa (Sulfonamide Allergy Hives Verified 04/28/24 09:27 Antibiotics) Family History Sister Breast cancer Other Heart disease Prostate cancer Surgical History S/P hysterectomy History of appendectomy History of cholecystectomy Social History household members: none number of children: 2 Smoking Status: Former smoker alcohol intake: never substance use type: does not use additional social history: Lives alone in a house in [place] Vital Signs Vital Signs Vital Signs: 04/28/24 09:19 04/28/24 09:24 04/28/24 11:21 Temperature 97.4 F L 98.1 F Temperature Source Oral Oral Pulse Rate 99 86 Respiratory Rate 15 15 Respiratory Effort Normal Non-Labored Respiratory Depth Normal Respiratory Pattern Normal Blood Pressure 88/67 L 93/74 Blood Pressure Mean 74 80 Pulse Ox 96 96 100 Oxygen Delivery Method Room Air Room Air Room Air 04/28/24 12:20 Temperature Temperature Source Pulse Rate 87 Respiratory Rate 16 Respiratory Effort Respiratory Depth Respiratory Pattern Blood Pressure 103/68 Blood Pressure Mean 79 Pulse Ox 98 Oxygen Delivery Method Weight Weight: 273 lb 5.971 oz Body Mass Index (BMI) 48.4 Physical Exam Const alert, oriented x3 and no apparent distress General Appearance: cooperative Extremity normal capillary refill Extremity Narrative: Closed injury shortened and externally rotated right lower extremity. Foot has chronic lower extremity edema. Able to wiggle toes dorsiflex and plantarflex the foot with normal sensation on the dorsum and plantar aspect of the foot the foot is warm well-perfused. General Extremity: edema right Lab / Micro Data 04/28/24 11:12 04/28/24 10:02 Labs: Laboratory Results - last 24 hr 04/28/24 10:02: WBC Cancelled, Corrected WBC Cancelled, RBC Cancelled, Hgb Cancelled, Hct Cancelled, MCV Cancelled, MCH Cancelled, MCHC Cancelled, RDW Std Deviation Cancelled, RDW Coeff of Yoel Cancelled, Plt Count Cancelled, MPV Cancelled, Immature Gran % (Auto) Cancelled, Neut % (Auto) Cancelled, Lymph % (Auto) Cancelled, Ritchie % (Auto) Cancelled, Eos % (Auto) Cancelled, Baso % (Auto) Cancelled, Absolute Neuts (auto) Cancelled, Absolute Lymphs (auto) Cancelled, Total Counted Cancelled, Neutrophils % (Manual) Cancelled, Band Neutrophils % Cancelled, Lymphocytes % (Manual) Cancelled, Monocytes % (Manual) Cancelled, Eosinophils % (Manual) Cancelled, Basophils % (Manual) Cancelled, Metamyelocytes % Cancelled, Myelocytes % Cancelled, Promyelocytes % Cancelled, Blast Cells % Cancelled, Plasma Cell % (Manual) Cancelled, Other Cells % Cancelled, Nucleated RBC % Cancelled, Nucleated RBCs/100 WBC Cancelled, Differential Comment Cancelled, Diff Path Review Cancelled, Hypersegmented Neuts Cancelled, Atypical Lymphocytes Cancelled, Reactive Lymphocytes Cancelled, Smudge Cells Cancelled, Toxic Granulation Cancelled, Toxic Vacuolation Cancelled, Dohle Bodies Cancelled, Ami Rods Cancelled, Platelet Estimate Cancelled, Plt Morphology Comment Cancelled, RBC Morphology Cancelled 04/28/24 10:02: RBC Morphology Cancelled, Polychromasia Cancelled, Hypochromasia Cancelled, Basophilic Stippling Cancelled, Anisocytosis Cancelled, Microcytosis Cancelled, Macrocytosis Cancelled, Spherocytes Cancelled, Sickle Cells Cancelled, Target Cells Cancelled, Tear Drop Cells Cancelled, Ovalocytes Cancelled, Stomatocytes Cancelled, Bettencourt-[place] Bodies Cancelled, [place] Cells Cancelled, Bite Cells Cancelled, Crenated Cell Cancelled, Acanthocytes (Spur) Cancelled, Rouleaux Cancelled, Schistocytes Cancelled, Sodium 133 L, Potassium 4.4, Chloride 100, Carbon Dioxide 22.0, Anion Gap 11, BUN 54 H, Creatinine 2.32 H, Estim Creat Clear Calc 24.74, Est GFR (MDRD) Af Amer 26 L, Est GFR (MDRD) Non-Af 22 L, BUN/Creatinine Ratio 23.3 H, Glucose 152 H, Calcium 9.8 04/28/24 11:00: Blood Type A POSITIVE, Antibody Screen NEGATIVE 04/28/24 11:12: WBC 18.1 H, RBC 3.58 L, Hgb 11.4 L, Hct 34.1 L, MCV 95.3, MCH 31.8, MCHC 33.4, RDW Std Deviation 49.0 H, RDW Coeff of Yoel 14.1, Plt Count 217, MPV 9.2, Immature Gran % (Auto) 0.900, Neut % (Auto) 86.9 H, Lymph % (Auto) 6.6 L, Ritchie % (Auto) 5.0, Eos % (Auto) 0.3, Baso % (Auto) 0.3, Absolute Neuts (auto) 15.7 H, Absolute Lymphs (auto) 1.20, Nucleated RBC % 0 Imaging Radiology Impression Brain CT 04/28/24 09:26 IMPRESSION: 1. Hypodense lesion of the right temporal lobe with volume loss. This could be a sequela of prior infarction. Acute on chronic fracture can not be excluded. Further evaluation with MRI is recommended. 2. No acute intracranial hemorrhage. Reading Location: [facility] Hip/Pelvis X-Ray 04/28/24 09:26 IMPRESSION: A markedly comminuted fracture of the right femoral intertrochanteric region is seen, extending to the very proximal shaft and lateral neck. Minimal degenerative changes are seen of the hip joints. Sacroiliac joint demonstrate mild degenerative changes. Prominent degenerative changes are seen of the visualized lower lumbar spine. Reading Location: [id number] Shoulder X-Ray 04/28/24 09:26 IMPRESSION: Prior resection of the distal right clavicle, with stable/satisfactory alignment noted. Advanced right glenohumeral joint osteoarthritic changes have progressed since the prior study, with increased reactive changes and deformities in both sides of the articulation, as well as severe joint narrowing. A loose intra-articular body projects superior to the lateral right humeral head. No acute fracture or dislocation is seen. If clinical concern persists, short-term follow-up imaging may be obtained to rule out a currently occult fracture. Reading Location: [id number] Cervical Spine CT 04/28/24 09:34 IMPRESSION: 1. No acute fracture. 2. Degenerative changes of the cervical spine as described. Reading Location: [id number] Chest X-Ray 04/28/24 10:35 IMPRESSION: Cardiomegaly. The lungs are clear. Reading Location: [id number] I agree the patient has a comminuted four-part intertrochanteric hip fracture. Assessment & Plan Assessment/Plan (1) Fracture of hip, right, closed: PLAN: 17-year-old female with a right hip 4 part comminuted intertrochanteric hip fracture on the right side. I discussed with the patient as well as her son Hardik the diagnosis prognosis different treatment options. Typically nonoperative treatment is only reserved for the most fragile or debilitated patients. Typically hip fractures are fixed and recommended for fixation given the high chance of blood clots and pneumonia and other problems associated with prolonged bedrest. That being said surgery has its own set of risks these were discussed patient wnats to go ahead with right hip intramedullary nail fixation open reduction internal fixation. I spoke to the OR staffing get this done tomorrow for now the patient can be diet as tolerated n.p.o. at midnight in preparation for surgery tomorrow patient and their son Hardik understood he signed the consent form and neha the right hip no further questions or concerns. Pros and cons risks and benefits were discussed with the patient including but not limited to infection, pain, stiffness, bleeding, damage to surrounding structures, neurovascular injury, recurrence or retear, failure or wear of hardware or fixation, instability, fracture, deep vein thrombosis and pulmonary embolism, anesthetic risks, , patient dissatisfaction, need for further surgery and other risks. Patient understood and wished to proceed with surgery, and signed the informed consent documentation.
[2024-04-28] MEDS: Acetaminophen 500 MG Tablet 1000 MG PO ×2 (15:25→21:57)
[2024-04-28] MEDS: Morphine 4 MG/ML Syringe IV ×2 (15:26→20:22)
[2024-04-28] MEDS: 0.9% Saline Lock 10 ML Syringe IV ×2 (15:27→20:22)
--- NOTE | 2024-04-28 16:15 | CASEMGMT ---
SYLVAIN LINTON Assessment Face to Face with patient for initial transition planning/care coordination assessment. SYLVAIN LINTON introduced self and role at [facility], pt voices understanding. Pt is A&Ox4 and is resting comfortably in bed and is calm. Pt son, Hardik, at bedside. Care providers, pharmacy, and demographics verified. Admitting dx: Hip Fracture LACE Strata: Not populated at this time PCP: [facility] Specialists: Cardio and pulmonary @ [place] but is unsure of the names Preferred Pharmacy: [facility] Insurance: [facility] A/B, Prosodic [employer] Prescription Benefit: Yes LNOK: Hardik (son), Maxi (Son) Living Arrangements: Pt lives alone @ the [address] that is a ground level apartment with a flat entrance. Pt states that there are not skilled nurses there but that is a call light/cord system that can be utilized. ADLs/IADLs: States ind at baseline Transportation: Son. Denies concerns DME: Home oxygen through [employer]. Verified 2L continuos. Pt has a concentrator and portable tanks. Denies Pox but can afford one. Pt has a glucometer with sufficient supplies. Cane. FWW x2. Hospital bed. grab bars. shower chair. Pt was given [facility] information. HHC/SNF: Hx with [facility]. Hx at [facility] (Pt states bad experience there), TCU, and [facility] Pt?s goal: Return to PLOF Plan: Anticipate SNF at the time of DC. Pt is agreeable at this time. Pt son states that he think SNF is nonnegotiable. CM/SW to follow. Surgery is planned for tomorrow and pt to work with PT after. Pt states that she is willing and agreeable to go to a SNF if warranted as long as it is not [facility]. Pt and pt son deny further needs at this time. Care Management to follow. Florencio Hicks RN, CM
[2024-04-28 17:44] LABS: Bedside Glucose 177 mg/dL (74-106)
[2024-04-28] MEDS: Insulin Lispro 100 UNIT/ML INSULN.PEN SC ×2 (18:14→22:05)
[2024-04-28] MEDS: oxyCODONE 5 MG Tablet PO ×2 (18:18→22:39)
--- NOTE | 2024-04-28 19:08 | PCM.HP.STD ---
HPI - General General Date of Admission: 04/28/24 HPI Narrative VAL ERICKSON, is a 79 F who presents to the hospital after mechanical fall while trying to get on her scale at home. She fell backward and hit her head but did not lose any consciousness. CT of the brain was negative for bleed. Hip x-ray demonstrated comminuted fracture of the right femoral intertrochanteric region. She was in significant pain and was started on pain medications. Orthopedic surgery was consulted planning for surgery tomorrow. [facility] Medical History Sleep apnea Diabetes Chronic pain Kidney stones Kidney disease DVT (deep venous thrombosis) Home Medications ?Medication ?Instructions ?Recorded ?Last Taken ?Type simvastatin 40 mg tablet 40 mg PO QHS cholesterol 12/16/12 04/27/24 History melatonin 10 mg sublingual tablet 10 mg PO QHS 02/20/18 04/27/24 Rx calcitriol 0.5 mcg capsule 0.5 mcg PO DAILY 08/09/21 04/27/24 History vit C 226 mg-vit E 90 mg-copper 1 cap PO DAILY 08/09/21 04/27/24 History 0.8 mg-zinc oxide-lutein 5 mg capsule (PreserVision Lutein) insulin glargine 100 unit/mL (3 60 unit subcut DAILY 12/25/21 04/27/24 07:00 History mL) subcutaneous pen (Lantus Solostar U-100 Insulin) docusate sodium 100 mg capsule 100 mg PO DAILY PRN stool softener 03/30/22 Unknown History furosemide 20 mg tablet 20 mg PO DAILY 03/30/22 04/27/24 History sennosides 8.6 mg capsule (senna) 8.6 mg PO DAILY PRN constipation 03/30/22 Unknown History fluticasone fur. 100 mcg-umeclid 1 inh inhalation DAILY 05/23/22 04/27/24 History 62.5 mcg-vilant 25 mcg inhalat.powder (Trelegy Ellipta) hydralazine 25 mg tablet 25 mg PO TID 01/30/23 04/27/24 History gabapentin 300 mg capsule 300 mg PO Q12H pain 04/28/24 04/27/24 History lidocaine 5 % topical patch 2 patch topical DAILY PRN pain, 04/28/24 Unknown History moderate metoprolol succinate 50 mg 50 mg PO DAILY 04/28/24 04/27/24 History tablet,extended release 24 hr tirzepatide 2.5 mg/0.5 mL See Rx Instructions subcut .COMPLEX 04/28/24 04/26/24 History subcutaneous pen injector (Colten) venlafaxine 75 mg capsule,extended 75 mg PO DAILY 04/28/24 04/27/24 History release 24 hr Allergy/AdvReac Type Severity Reaction Status Date / Time levofloxacin (From Levaquin) Allergy Hives Verified 04/29/24 07:25 Sulfa (Sulfonamide Allergy Hives Verified 04/29/24 07:25 Antibiotics) Family History Sister Breast cancer Other Heart disease Prostate cancer Surgical History S/P hysterectomy History of appendectomy History of cholecystectomy Social History household members: none number of children: 2 Smoking Status: Former smoker alcohol intake: never substance use type: does not use additional social history: Lives alone in a house in [facility] Constitutional Constitutional: Denies chills, fatigue, fever(s) or malaise Eyes Eyes: Denies blurry vision ENT HEENT: Denies headache(s) or nasal discharge Cardiovascular Cardiovascular: Denies chest pain, dyspnea on exertion or syncope Respiratory/Chest Respiratory/Chest: Denies cough, shortness of breath at rest or shortness of breath with exertion Gastrointestinal Gastrointestinal: Denies constipation, diarrhea, nausea or vomiting Genitourinary Genitourinary: Denies dysuria Musculoskeletal Musculoskeletal: Reports joint pain Neurologic Neurologic: Denies focal weakness, numbness or tremor(s) Psychiatric Psychiatric: Denies anxiety or depression Vital Signs Vital Signs Vital Signs: 04/28/24 09:19 04/28/24 09:24 04/28/24 11:15 Temperature 97.4 F L Temperature Source Oral Pulse Rate 99 Respiratory Rate 15 Respiratory Effort Normal Non-Labored Respiratory Depth Normal Respiratory Pattern Normal Blood Pressure 88/67 L 93/74 Blood Pressure Mean 74 80 Blood Pressure Source Blood Pressure Position Blood Pressure Location Pulse Ox 96 96 Oxygen Delivery Method Room Air Room Air 04/28/24 11:21 04/28/24 12:20 04/28/24 14:48 Temperature 98.1 F 97.5 F L Temperature Source Oral Oral Pulse Rate 86 87 91 Respiratory Rate 15 16 16 Respiratory Effort Respiratory Depth Respiratory Pattern Blood Pressure 93/74 103/68 123/69 H Blood Pressure Mean 80 79 87 Blood Pressure Source Monitor Blood Pressure Position Semi-Fowlers Blood Pressure Location Left Forearm Pulse Ox 100 98 98 Oxygen Delivery Method Room Air Room Air 04/28/24 14:48 Temperature Temperature Source Pulse Rate Respiratory Rate Respiratory Effort Normal Non-Labored Respiratory Depth Normal Respiratory Pattern Normal Blood Pressure Blood Pressure Mean Blood Pressure Source Blood Pressure Position Blood Pressure Location Pulse Ox Oxygen Delivery Method Room Air Weight Weight: 263 lb 3.711 oz Body Mass Index (BMI) 46.6 Physical Exam Narrative General: Alert, Oriented x3, Cooperative, in pain HEENT: Atraumatic, PERRLA, EOMI, Normocephalic Oral: Moist Mucosa Neck: Supple, No JVD Lungs: Diminished, Normal air movement, No rhonchi, No wheeze, No rales Cardiovascular: Regular rate, Regular Rhythm, Normal S1, Normal S2, No murmurs Abdomen: Soft, Non Tender, Non-Distended, No Hepato-splenomegaly Extremities: No edema, Capillary Refill Less than 3 Seconds Skin: No rashes, No breakdown Musculoskeletal: Right extremity is shortened and rotated. Neurological: No focal neurological deficits, Motor Exam 5/5 strength throughout, Sensory exam intact to light touch and pain Psych/Mental Status: Normal Affect, Appropriate Results Lab / Micro Data 04/29/24 05:28 04/29/24 05:28 Labs: Laboratory Results - last 24 hr 04/28/24 10:02: WBC Cancelled, Corrected WBC Cancelled, RBC Cancelled, Hgb Cancelled, Hct Cancelled, MCV Cancelled, MCH Cancelled, MCHC Cancelled, RDW Std Deviation Cancelled, RDW Coeff of Yoel Cancelled, Plt Count Cancelled, MPV Cancelled, Immature Gran % (Auto) Cancelled, Neut % (Auto) Cancelled, Lymph % (Auto) Cancelled, [place] % (Auto) Cancelled, Eos % (Auto) Cancelled, Baso % (Auto) Cancelled, Absolute Neuts (auto) Cancelled, Absolute Lymphs (auto) Cancelled, Total Counted Cancelled, Neutrophils % (Manual) Cancelled, Band Neutrophils % Cancelled, Lymphocytes % (Manual) Cancelled, Monocytes % (Manual) Cancelled, Eosinophils % (Manual) Cancelled, Basophils % (Manual) Cancelled, Metamyelocytes % Cancelled, Myelocytes % Cancelled, Promyelocytes % Cancelled, Blast Cells % Cancelled, Plasma Cell % (Manual) Cancelled, Other Cells % Cancelled, Nucleated RBC % Cancelled, Nucleated RBCs/100 WBC Cancelled, Differential Comment Cancelled, Diff Path Review Cancelled, Hypersegmented Neuts Cancelled, Atypical Lymphocytes Cancelled, Reactive Lymphocytes Cancelled, Smudge Cells Cancelled, Toxic Granulation Cancelled, Toxic Vacuolation Cancelled, Dohle Bodies Cancelled, Ami Rods Cancelled, Platelet Estimate Cancelled, Plt Morphology Comment Cancelled, RBC Morphology Cancelled 04/28/24 10:02: RBC Morphology Cancelled, Polychromasia Cancelled, Hypochromasia Cancelled, Basophilic Stippling Cancelled, Anisocytosis Cancelled, Microcytosis Cancelled, Macrocytosis Cancelled, Spherocytes Cancelled, Sickle Cells Cancelled, Target Cells Cancelled, Tear Drop Cells Cancelled, Ovalocytes Cancelled, Stomatocytes Cancelled, Betten[place] Bodies Cancelled, [place] Cells Cancelled, Bite Cells Cancelled, Crenated Cell Cancelled, Acanthocytes (Spur) Cancelled, Rouleaux Cancelled, Schistocytes Cancelled, Sodium 133 L, Potassium 4.4, Chloride 100, Carbon Dioxide 22.0, Anion Gap 11, BUN 54 H, Creatinine 2.32 H, Estim Creat Clear Calc 24.74, Est GFR (MDRD) Af Amer 26 L, Est GFR (MDRD) Non-Af 22 L, BUN/Creatinine Ratio 23.3 H, Glucose 152 H, Calcium 9.8 04/28/24 11:00: Blood Type A POSITIVE, Antibody Screen NEGATIVE 04/28/24 11:12: WBC 18.1 H, RBC 3.58 L, Hgb 11.4 L, Hct 34.1 L, MCV 95.3, MCH 31.8, MCHC 33.4, RDW Std Deviation 49.0 H, RDW Coeff of Yoel 14.1, Plt Count 217, MPV 9.2, Immature Gran % (Auto) 0.900, Neut % (Auto) 86.9 H, Lymph % (Auto) 6.6 L, [place] % (Auto) 5.0, Eos % (Auto) 0.3, Baso % (Auto) 0.3, Absolute Neuts (auto) 15.7 H, Absolute Lymphs (auto) 1.20, Nucleated RBC % 0 04/28/24 17:24: POC Glucose 177 H Imaging Radiology Impression Brain CT 04/28/24 09:26 IMPRESSION: 1. Hypodense lesion of the right temporal lobe with volume loss. This could be a sequela of prior infarction. Acute on chronic fracture can not be excluded. Further evaluation with MRI is recommended. 2. No acute intracranial hemorrhage. Reading Location: [facility] Hip/Pelvis X-Ray 04/28/24 09:26 IMPRESSION: A markedly comminuted fracture of the right femoral intertrochanteric region is seen, extending to the very proximal shaft and lateral neck. Minimal degenerative changes are seen of the hip joints. Sacroiliac joint demonstrate mild degenerative changes. Prominent degenerative changes are seen of the visualized lower lumbar spine. Reading Location: [id number] Shoulder X-Ray 04/28/24 09:26 IMPRESSION: Prior resection of the distal right clavicle, with stable/satisfactory alignment noted. Advanced right glenohumeral joint osteoarthritic changes have progressed since the prior study, with increased reactive changes and deformities in both sides of the articulation, as well as severe joint narrowing. A loose intra-articular body projects superior to the lateral right humeral head. No acute fracture or dislocation is seen. If clinical concern persists, short-term follow-up imaging may be obtained to rule out a currently occult fracture. Reading Location: [id number] Cervical Spine CT 04/28/24 09:34 IMPRESSION: 1. No acute fracture. 2. Degenerative changes of the cervical spine as described. Reading Location: [facility] Chest X-Ray 04/28/24 10:35 IMPRESSION: Cardiomegaly. The lungs are clear. Reading Location: [id number] Assessment & Plan Assessment/Plan (1) Fracture of hip, right, closed: PLAN: Plan 1. Right intertrochanteric comminuted femur fracture ? Pain management ? Consult to Ortho for surgical repair ? PT/OT 2. Essential HTN/HLD ? Blood pressures are stable ? Can resume her home blood pressure medications ? Will monitor make adjustments as necessary ? Continue with simvastatin 3. 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 Continue with insulin ? Will hold her oral medications ? Accu-Cheks ACHS ? Will monitor make adjustments as necessary ? Renal function is at baseline ? A1c of 10 ? Recently started Mounjaro 4. Anxiety/depression ? Stable ? Continue with her home medications DVT: SCDs 75 minutes was spent on direct patient care, including documentation as well as chart review and collaboration with colleagues Charges/Coding Visit Charges Inpatient E&M: 92559 Init Hosp L3
[2024-04-28] MEDS: Gabapentin 300 MG Capsule PO (21:56)
[2024-04-28] MEDS: traZODone 50 MG Tablet PO (21:56)
[2024-04-28] MEDS: Venlafaxine XR 75 MG Capsule PO (21:56)
[2024-04-28] MEDS: Lidocaine 5% Patch 2 PATCH TOPICAL (21:59)
[2024-04-28 23:09] LABS: Bedside Glucose 170 mg/dL (74-106)
[2024-04-29] VITALS (18 sets, daily range): BP systolic 99–136; BP diastolic 61–80; PULSE 90–97; RESP 14–20; TEMP 35.9–37.1; O2SAT 94–98
[2024-04-29 05:54] LABS: Absolute Lymphocyte Count 1.37 X10^3/uL (0.83-4.51); Absolute Neutrophil Count 6.8 X10^3/uL (2.0-7.7); Basophil# 0.02 X10^3/uL; Basophil% 0.2 % (0-1); Eosinophil# 0.09 X10^3/uL; Hematocrit 30.9 % (37-47); Hemoglobin 10.3 g/dL (12.0-15.0); Lymphocyte # 1.37 X10^3/ul (0.83-4.51); Lymphocyte % 15.2 % (19-41); Mean Corp Hgb Conc 33.3 g/dL (32-36); Mean Corpuscular Hgb 32.3 pg (27.0-32.0); Mean Corpuscular Volume 96.9 fL (81-99); Mean Platelet Vol. 9.5 fl (6.2-12.0); Monocyte# 0.65 X10^3/uL; Monocyte% 7.2 % (0-10); NRBC Flagged by Analyzer 0 % (0-5); Neutrophil # 6.84 X10^3/uL (2.7-7.7); Neutrophil % 75.8 % (47-70); Platelet Count 199 K/mm3 (150-450); RBC Distribution Width SD 50.2 fl (35.1-43.9); Red Blood Count 3.19 M/mm3 (4.2-5.4)
[2024-04-29 06:06] LABS: Anion Gap 10 (5-15); BUN 46 mg/dL (7-18); BUN/Creat Ratio 20.7 RATIO (10-20); Calcium,Total 8.8 mg/dL (8.5-10.1); Chloride 96 mmol/L (98-107); Creatinine, Serum 2.22 mg/dL (0.55-1.02); EST Glomerular Filtration Rate 23 mL/min (>60); Est Glom Filt Rate - Afr Amer 27 mL/min (>60); Estimated Creatinine Clearance 25.27 ml/min; Glucose 209 mg/dL (74-106); Potassium 4.1 mmol/L (3.5-5.1); Sodium Level 132 mmol/L (136-145)
[2024-04-29] MEDS: Acetaminophen 500 MG Tablet 1000 MG PO ×3 (06:35→21:33)
[2024-04-29] MEDS: Insulin Lispro 100 UNIT/ML INSULN.PEN SC ×4 (06:36→21:43)
[2024-04-29] MEDS: oxyCODONE 5 MG Tablet PO ×2 (06:37→17:18)
--- NOTE | 2024-04-29 07:05 | EKG12_ITS ---
Test Reason : PRE OP Blood Pressure : */* mmHG Vent. Rate : 101 BPM Atrial Rate : 101 BPM P-R Int : 160 ms QRS Dur : 144 ms QT Int : 392 ms P-R-T Axes : * -52 93 degrees QTcB Int : 508 ms Sinus tachycardia Left axis deviation Left bundle branch block Abnormal ECG When compared with ECG of 28-Apr-2024 10:59, MANUAL COMPARISON REQUIRED DATA IS UNCONFIRMED Confirmed by Gregory June ([id number]), image editor CAMDEN WRAY ([id number]) on 04/30/2024 8:01:45 AM Referred By: CLARK Confirmed By: Gregory June
--- NOTE | 2024-04-29 07:13 | NURSING ---
let message with lili Dye and talked to Maxi pearson to inform them that pt was taken for surgery
[2024-04-29 07:16] LABS: Bedside Glucose 212 mg/dL (74-106)
--- NOTE | 2024-04-29 07:19 | RAD_ITS ---
EXAM: Intraoperative fluoroscopic imaging. COMPARISON: Comparison is made with prior radiographs done April 28, 2024. TECHNIQUE: Intraoperative fluoroscopic services. FINDINGS: Intraoperative fluoroscopy for open reduction internal fixation of the comminuted right intertrochanteric fracture. RAD/Hip 1 view with Pelvis IMPRESSION: Intraoperative fluoroscopic services provided for open reduction and internal f ixation of the right intertrochanteric fracture. Reading Location: [facility]
--- NOTE | 2024-04-29 07:24 | PN.ORTHO_ITS ---
Subjective Subjective well, alert Objective Data Objective Data Vital Signs: Vital Signs Temp Pulse Resp BP Pulse Ox O2 Del Method O2 Flow Rate 98.1 F 90 20 H 101/64 95 Nasal Cannula 2 04/29/24 02:00 04/29/24 02:00 04/29/24 02:00 04/29/24 02:00 04/29/24 02:00 04/29/24 02:00 04/29/24 02:00 Oxygen Flow Rate (L/min) 2 Oxygen Delivery Method Nasal Cannula Weight: 263 lb 3.711 oz Body Mass Index (BMI) 46.6 Intake & Output: Intake and Output for Last 24 Hours 04/27/24 04/28/24 04/29/24 23:59 23:59 23:59 Output Total 1000 / 1000 Balance -1000 / -1000 Lab / Micro Data 04/29/24 05:28 04/29/24 05:28 Labs: Laboratory Results - last 24 hr 04/28/24 10:02: WBC Cancelled, Corrected WBC Cancelled, RBC Cancelled, Hgb Cancelled, Hct Cancelled, MCV Cancelled, MCH Cancelled, MCHC Cancelled, RDW Std Deviation Cancelled, RDW Coeff of Yoel Cancelled, Plt Count Cancelled, MPV Cancelled, Immature Gran % (Auto) Cancelled, Neut % (Auto) Cancelled, Lymph % (Auto) Cancelled, [place] % (Auto) Cancelled, Eos % (Auto) Cancelled, Baso % (Auto) Cancelled, Absolute Neuts (auto) Cancelled, Absolute Lymphs (auto) Cancelled, Total Counted Cancelled, Neutrophils % (Manual) Cancelled, Band Neutrophils % Cancelled, Lymphocytes % (Manual) Cancelled, Monocytes % (Manual) Cancelled, Eosinophils % (Manual) Cancelled, Basophils % (Manual) Cancelled, Metamyelocytes % Cancelled, Myelocytes % Cancelled, Promyelocytes % Cancelled, Blast Cells % Cancelled, Plasma Cell % (Manual) Cancelled, Other Cells % Cancelled, Nucleated RBC % Cancelled, Nucleated RBCs/100 WBC Cancelled, Differential Comment Cancelled, Diff Path Review Cancelled, Hypersegmented Neuts Cancelled, Atypical Lymphocytes Cancelled, Reactive Lymphocytes Cancelled, Smudge Cells Cancelled, Toxic Granulation Cancelled, Toxic Vacuolation Cancelled, Dohle Bodies Cancelled, Ami Rods Cancelled, Platelet Estimate Cancelled, Plt Morphology Comment Cancelled, RBC Morphology Cancelled 04/28/24 10:02: RBC Morphology Cancelled, Polychromasia Cancelled, Hypochromasia Cancelled, Basophilic Stippling Cancelled, Anisocytosis Cancelled, Microcytosis Cancelled, Macrocytosis Cancelled, Spherocytes Cancelled, Sickle Cells Cancelled, Target Cells Cancelled, Tear Drop Cells Cancelled, Ovalocytes Cancelled, Stomatocytes Cancelled, Bettencourt[place] Bodies Cancelled, [place] Cells Cancelled, Bite Cells Cancelled, Crenated Cell Cancelled, Acanthocytes (Spur) Cancelled, Rouleaux Cancelled, Schistocytes Cancelled, Sodium 133 L, Potassium 4.4, Chloride 100, Carbon Dioxide 22.0, Anion Gap 11, BUN 54 H, Creatinine 2.32 H, Estim Creat Clear Calc 24.74, Est GFR (MDRD) Af Amer 26 L, Est GFR (MDRD) Non-Af 22 L, BUN/Creatinine Ratio 23.3 H, Glucose 152 H, Calcium 9.8 04/28/24 11:00: Blood Type A POSITIVE, Antibody Screen NEGATIVE 04/28/24 11:12: WBC 18.1 H, RBC 3.58 L, Hgb 11.4 L, Hct 34.1 L, MCV 95.3, MCH 31.8, MCHC 33.4, RDW Std Deviation 49.0 H, RDW Coeff of Yoel 14.1, Plt Count 217, MPV 9.2, Immature Gran % (Auto) 0.900, Neut % (Auto) 86.9 H, Lymph % (Auto) 6.6 L, [place] % (Auto) 5.0, Eos % (Auto) 0.3, Baso % (Auto) 0.3, Absolute Neuts (auto) 15.7 H, Absolute Lymphs (auto) 1.20, Nucleated RBC % 0 04/28/24 17:24: POC Glucose 177 H 04/28/24 22:01: POC Glucose 170 H 04/29/24 05:28: WBC 9.0, RBC 3.19 L, Hgb 10.3 L, Hct 30.9 L, MCV 96.9, MCH 32.3 H, MCHC 33.3, RDW Std Deviation 50.2 H, RDW Coeff of Yoel 14.0, Plt Count 199, MPV 9.5, Immature Gran % (Auto) 0.600, Neut % (Auto) 75.8 H, Lymph % (Auto) 15.2 L, [place] % (Auto) 7.2, Eos % (Auto) 1.0, Baso % (Auto) 0.2, Absolute Neuts (auto) 6.8, Absolute Lymphs (auto) 1.37, Nucleated RBC % 0, Sodium 132 L, Potassium 4.1, Chloride 96 L, Carbon Dioxide 26.0, Anion Gap 10, BUN 46 H, Creatinine 2.22 H, Estim Creat Clear Calc 25.27, Est GFR (MDRD) Af Amer 27 L, Est GFR (MDRD) Non-Af 23 L, BUN/Creatinine Ratio 20.7 H, Glucose 209 H, Calcium 8.8 04/29/24 06:35: POC Glucose 212 H Radiography Diagnostic Testing: Radiology Impression Brain CT 04/28/24 09:26 IMPRESSION: 1. Hypodense lesion of the right temporal lobe with volume loss. This could be a sequela of prior infarction. Acute on chronic fracture can not be excluded. Further evaluation with MRI is recommended. 2. No acute intracranial hemorrhage. Reading Location: [facility] Hip/Pelvis X-Ray 04/28/24 09:26 IMPRESSION: A markedly comminuted fracture of the right femoral intertrochanteric region is seen, extending to the very proximal shaft and lateral neck. Minimal degenerative changes are seen of the hip joints. Sacroiliac joint demonstrate mild degenerative changes. Prominent degenerative changes are seen of the visualized lower lumbar spine. Reading Location: [id number] Shoulder X-Ray 04/28/24 09:26 IMPRESSION: Prior resection of the distal right clavicle, with stable/satisfactory alignment noted. Advanced right glenohumeral joint osteoarthritic changes have progressed since the prior study, with increased reactive changes and deformities in both sides of the articulation, as well as severe joint narrowing. A loose intra-articular body projects superior to the lateral right humeral head. No acute fracture or dislocation is seen. If clinical concern persists, short-term follow-up imaging may be obtained to rule out a currently occult fracture. Reading Location: [id number] Cervical Spine CT 04/28/24 09:34 IMPRESSION: 1. No acute fracture. 2. Degenerative changes of the cervical spine as described. Reading Location: [facility] Chest X-Ray 04/28/24 10:35 IMPRESSION: Cardiomegaly. The lungs are clear. Reading Location: [id number] Assessment & Plan Assessment/Plan (1) Fracture of hip, right, closed: PLAN: R hip fracture. Still needs EKG and sugars before proceeding. dr ledesma aware. right hip marked, no further questions. ready to proceed when patient cleared.
--- NOTE | 2024-04-29 07:34 | SUR.PREOP ---
DR. RODAS MADE AWARE THAT THE PATIENT HAS A PACEMAKER/ DEFIBRILLATOR THAT WAS NOT CHECKED NOR DOES THE PATIENT KNOW WHAT KIND IT IS. WE ATTEMPTED TO CALL HER SON, BUT HAD TO LEAVE A MESSAGE. DR. RODAS SAID THAT IT IS OK ANESTHESIA WILL USE A MAGNET ANYWAY ON THE WAY OUT OF SURGERY.
--- NOTE | 2024-04-29 07:45 | PRE.ANES_ITS ---
ASA Classification* ASA Classification ASA Classification: 3 Assessment & Plan Anesthesia* Anesthesia Assessment Anesthesia Assessment: Discussed sedation and/or anesthesia options, risks, benefits, and alternatives with patient/parents/legal guardian/POA. Questions invited. The patient/parents/legal guardian/POA seems to understand and agrees to proceed with anesthesia plan. Reviewed the physical assessment, medical history, allergy history and patient home medications list prior to surgery/procedure/anesthetic and documented any changes. Performed airway and anesthesia risk assessments. Anesthesia Type Anesthesia Type: General (PACER/AICD. Gold Blower Melani. No recent CHF per patient) Anesthesia Focused Assessment* Temperature: 98.1 F Pulse Rate: 90 Blood Pressure: 101/64 Respiratory Rate: 20 Pulse Ox: 95 Oxygen Flow Rate (L/min): 2 Airway Assessment Mouth opens: >3 cm Mallampati Score: II Focused Labs Anesthesia Preop lab: CBC WBC 9.0 K/mm3 (4.4-11.0) 04/29/24 05:28 04/29/24 RBC 3.19 M/mm3 (4.2-5.4) L 04/29/24 05:28 04/29/24 Hgb 10.3 g/dL (12.0-15.0) L 04/29/24 05:28 5 Hct 30.9 % (37-47) L 04/29/24 05:28 04/29/24 Plt Count 199 K/mm3 (150-450) 04/29/24 05:28 04/29/24 CHEMISTRY Potassium 4.1 mmol/L (3.5-5.1) 04/29/24 05:28 04/29/24 Sodium 132 mmol/L (136-145) L 04/29/24 05:28 04/29/24 Magnesium 2.0 mg/dL (1.6-2.6) 01/23/18 11:55 01/23/18 Phosphorus 3.3 mg/dL (2.5-4.9) 04/21/24 10:48 04/21/24 BUN 46 mg/dL (7-18) H 04/29/24 05:28 04/29/24 Creatinine 2.22 mg/dL (0.55-1.02) H 04/29/24 05:28 Glucose 209 mg/dL (74-106) H 04/29/24 05:28 04/29/24 POC Glucose 212 mg/dL (74-106) H 04/29/24 06:35 04/29/24 COAG PT 13.8 SECONDS (11.7-14.9) 12/26/21 05:29 Pre-Assessment Diagnosis/Proposed Procedure Planned Operative Procedure(s): ORIF Hip fracture Anesthesia History 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 When Was Last Pacemaker Check QUESTION #4 FULL TEXT: You/Your Family Experience fever (hyperthermia) with Anesthesia Last Oral Intake Last Oral intake: Last Oral Intake NPO since Meds taken in AM with sips of water? 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 Has anyone observed you stop breathing during sleep? STOP Results Positive 04/28/24 14:48 QUESTION #5 FULL TEXT : Do you snore loudly (louder than talking or can be heard through closed doors)? 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 Specify any problems Hx of Preganancy in last 3 N/A 04/28/24 14:48 Months Nurse Filling Out Transfusion AHAGGERTY 04/28/24 14:48 & Questions: Date: 04/28/24 04/28/24 14:48 Time: 15:02 04/28/24 14:48 Patient unable to answer at this time (ie. 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 Hx Now No 04/28/24 20:25 Gestational Age (in weeks): EDC: Hx Hx Para Hx Section SAB No 04/28/24 20:25 Active Medications Active Medications: Current Medications Generic Name Dose Route Start Last Admin Trade Name Freq PRN Reason Stop Dose Admin Acetaminophen 1,000 mg 04/28/24 14:44 04/29/24 06:35 Acetaminophen 500 Mg Tablet PO 1,000 mg Q8 FATOU Administration Gabapentin 300 mg 04/28/24 22:00 04/28/24 21:56 Gabapentin 300 Mg Capsule PO 300 mg Q12 FATOU Administration Glucagon 1 mg 04/28/24 14:44 Glucagon 1 Mg/Ml Syringe IM X1 PRN HYPOGLYCEMIA Protocol Dextrose 250 mls @ 0 mls/hr 04/28/24 14:44 Dextrose 10%-Water IV .Q0M PRN HYPOGLYCEMIA Protocol As Directed Sodium Chloride 500 mls @ 0 mls/hr 04/29/24 07:15 IV .Q0M FATOU KVO Insulin Human Lispro 0 unit 04/28/24 16:00 04/29/24 06:36 Insulin Lispro 100 Unit/Ml Insuln.Pen SC 4 u ACHS FATOU Administration Protocol Lidocaine 2 patch 04/28/24 21:14 04/28/24 21:59 Lidocaine 5% Patch TOPICAL 2 patch DAILY PRN PRN Administration pain, moderate Protocol Morphine Sulfate 2 - 4 mg 04/28/24 14:44 Morphine 2 Mg/Ml Syringe IV Q3H PRN PRN Pain Score 6-10 Morphine Sulfate 2 - 4 mg 04/28/24 14:49 04/28/24 20:22 Morphine 4 Mg/Ml Syringe IV 4 mg Q3H PRN PRN Administration Pain Score 6-10 Ondansetron HCl 4 mg 04/28/24 14:44 Ondansetron 4 Mg/2 Ml Vial IV Q8H PRN PRN NAUSEA/VOMITING Oxycodone HCl 5 mg 04/28/24 14:44 04/29/24 06:37 Oxycodone 5 Mg Tablet PO 5 mg Q4H PRN PRN Administration Pain Score 4-10 Sodium Chloride 10 - 40 ml 04/28/24 14:55 04/28/24 20:22 0.9% Saline Lock 10 Ml Syringe IV 10 ml UD PRN Administration SALINE FLUSH Venlafaxine HCl 75 mg 04/28/24 21:30 04/28/24 21:56 Venlafaxine Xr 75 Mg Capsule PO 75 mg DAILY FATOU Administration [facility] Medical History Sleep apnea Diabetes Chronic pain Kidney stones Kidney disease DVT (deep venous thrombosis) Home Medications ?Medication ?Instructions ?Recorded ?Last Taken ?Type simvastatin 40 mg tablet 40 mg PO QHS cholesterol 03/3004/27/24 History melatonin 10 mg sublingual tablet 10 mg PO QHS 8 04/27/24 Rx calcitriol 0.5 mcg capsule 0.5 mcg PO DAILY 08/09/21 0 04/27/24 History vit C 226 mg-vit E 90 mg-copper 1 cap PO DAILY 2 04/27/24 History 0.8 mg-zinc oxide-lutein 5 mg capsule (PreserVision Lutein) insulin glargine 100 unit/mL (3 60 unit subcut DAILY 1 04/27/24 07:00 History mL) subcutaneous pen (Lantus Solostar U-100 Insulin) docusate sodium 100 mg capsule 100 mg PO DAILY PRN sto ol softener 03/30/22 Unknown History furosemide 20 mg tablet 20 mg PO DAILY 03/30/2204/18 History sennosides 8.6 mg capsule (senna) 8.6 mg PO DAILY PRN constipation 03/30/22 Unknown History fluticasone fur. 100 mcg-umeclid 1 inh inhalation AC Y 05/23/22 04/27/24 History 62.5 mcg-vilant 25 mcg inhalat.powder (Trelegy Ellipta) hydralazine 25 mg tablet 25 mg PO TID 01/30/23 History gabapentin 300 mg capsule 300 mg PO Q12H pain 04/28/24 04/27/24 History lidocaine 5 % topical patch 2 patch topical DAILY PRN pain, 04/28/24 Unknown History moderate metoprolol succinate 50 mg 50 mg PO DAILY 04/28/2401/09 History tablet,extended release 24 hr tirzepatide 2.5 mg/0.5 mL See Rx Instructions subcut . COMPLEX 04/28/24 04/26/24 History subcutaneous pen injector (Mounjaro) venlafaxine 75 mg capsule,extended 75 mg PO DAILY 04/1804/27/24 History release 24 hr Allergy/AdvReac Type Severity Reaction Status Date / Time levofloxacin (From Levaquin) Allergy Hives Verified 04/29/24 07:25 Sulfa (Sulfonamide Allergy Hives Verified 04/29/24 07:25 Antibiotics) Family History Sister Breast cancer Other Heart disease Prostate cancer Surgical History S/P hysterectomy History of appendectomy History of cholecystectomy Social History household members: none number of children: 2 Smoking Status: Former smoker alcohol intake: never substance use type: does not use additional social history: Lives alone in a house in [place] Review of Systems (Anesthesia) ROS Narrative System reviewed and no additional complaints, except as documented.
[2024-04-29 07:47] LABS: Bedside Glucose 170 mg/dL (74-106)
[2024-04-29] MEDS: Cefazolin 2 GM in Syringe IV (08:00)
[2024-04-29] MEDS: Bupivacaine 0.25% 30 ML Vial (08:40)
--- NOTE | 2024-04-29 09:00 | SUR.PREOP ---
talked with tra[facility] in [place]- pt has a medtronic, dual chamber ICD, non dependent pacemaker had remote check 04/15/2023- they will send this result to us seen in office 11/26/23 they will send the last check to us for anesthesia to review
--- NOTE | 2024-04-29 09:35 | PN.HOSP_ITS ---
Subjective Subjective Plan for surgical intervention today. She was given some trazodone last night which helped with her sleep. Pain is somewhat controlled though family does endorse the fact that she has a low pain tolerance Objective Data Objective Data Vital Signs: Vital Signs Temp Pulse Resp BP Pulse Ox O2 Del Method O2 Flow Rate 98.1 F 90 20 H 101/64 95 Nasal Cannula 2 04/29/24 07:46 04/29/24 07:46 04/29/24 07:46 04/29/24 07:46 04/29/24 07:46 04/29/24 02:00 04/29/24 07:46 Oxygen Flow Rate (L/min) 2 Oxygen Delivery Method Nasal Cannula Weight: 263 lb 3.711 oz Body Mass Index (BMI) 46.6 Intake & Output: Intake and Output for Last 24 Hours 04/28/24 04/29/24 04/30/24 03:59 03:59 03:59 Intake Total Output Total 1000 / 1000 Balance -980 / -980 Lab / Micro Data 04/29/24 05:28 04/29/24 05:28 Labs: Laboratory Results - last 24 hr 04/28/24 10:02: WBC Cancelled, Corrected WBC Cancelled, RBC Cancelled, Hgb Cancelled, Hct Cancelled, MCV Cancelled, MCH Cancelled, MCHC Cancelled, RDW Std Deviation Cancelled, RDW Coeff of Yoel Cancelled, Plt Count Cancelled, MPV Cancelled, Immature Gran % (Auto) Cancelled, Neut % (Auto) Cancelled, Lymph % (Auto) Cancelled, [place] % (Auto) Cancelled, Eos % (Auto) Cancelled, Baso % (Auto) Cancelled, Absolute Neuts (auto) Cancelled, Absolute Lymphs (auto) Cancelled, Total Counted Cancelled, Neutrophils % (Manual) Cancelled, Band Neutrophils % Cancelled, Lymphocytes % (Manual) Cancelled, Monocytes % (Manual) Cancelled, Eosinophils % (Manual) Cancelled, Basophils % (Manual) Cancelled, Metamyelocytes % Cancelled, Myelocytes % Cancelled, Promyelocytes % Cancelled, Blast Cells % Cancelled, Plasma Cell % (Manual) Cancelled, Other Cells % Cancelled, Nucleated RBC % Cancelled, Nucleated RBCs/100 WBC Cancelled, Differential Comment Cancelled, Diff Path Review Cancelled, Hypersegmented Neuts Cancelled, Atypical Lymphocytes Cancelled, Reactive Lymphocytes Cancelled, Smudge Cells Cancelled, Toxic Granulation Cancelled, Toxic Vacuolation Cancelled, Dohle Bodies Cancelled, Ami Rods Cancelled, Platelet Estimate Cancelled, Plt Morphology Comment Cancelled, RBC Morphology Cancelled 04/28/24 10:02: RBC Morphology Cancelled, Polychromasia Cancelled, Hypochromasia Cancelled, Basophilic Stippling Cancelled, Anisocytosis Cancelled, Microcytosis Cancelled, Macrocytosis Cancelled, Spherocytes Cancelled, Sickle Cells Cancelled, Target Cells Cancelled, Tear Drop Cells Cancelled, Ovalocytes Cancelled, Stomatocytes Cancelled, Bettencourt-[place] Bodies Cancelled, [place] Cells Cancelled, Bite Cells Cancelled, Crenated Cell Cancelled, Acanthocytes (Spur) Cancelled, Rouleaux Cancelled, Schistocytes Cancelled, Sodium 133 L, Potassium 4.4, Chloride 100, Carbon Dioxide 22.0, Anion Gap 11, BUN 54 H, Creatinine 2.32 H, Estim Creat Clear Calc 24.74, Est GFR (MDRD) Af Amer 26 L, Est GFR (MDRD) Non-Af 22 L, BUN/Creatinine Ratio 23.3 H, Glucose 152 H, Calcium 9.8 04/28/24 11:00: Blood Type A POSITIVE, Antibody Screen NEGATIVE 04/28/24 11:12: WBC 18.1 H, RBC 3.58 L, Hgb 11.4 L, Hct 34.1 L, MCV 95.3, MCH 31.8, MCHC 33.4, RDW Std Deviation 49.0 H, RDW Coeff of Yoel 14.1, Plt Count 217, MPV 9.2, Immature Gran % (Auto) 0.900, Neut % (Auto) 86.9 H, Lymph % (Auto) 6.6 L, [place] % (Auto) 5.0, Eos % (Auto) 0.3, Baso % (Auto) 0.3, Absolute Neuts (auto) 15.7 H, Absolute Lymphs (auto) 1.20, Nucleated RBC % 0 04/28/24 17:24: POC Glucose 177 H 04/28/24 22:01: POC Glucose 170 H 04/29/24 05:28: WBC 9.0, RBC 3.19 L, Hgb 10.3 L, Hct 30.9 L, MCV 96.9, MCH 32.3 H, MCHC 33.3, RDW Std Deviation 50.2 H, RDW Coeff of Yoel 14.0, Plt Count 199, MPV 9.5, Immature Gran % (Auto) 0.600, Neut % (Auto) 75.8 H, Lymph % (Auto) 15.2 L, [place] % (Auto) 7.2, Eos % (Auto) 1.0, Baso % (Auto) 0.2, Absolute Neuts (auto) 6.8, Absolute Lymphs (auto) 1.37, Nucleated RBC % 0, Sodium 132 L, Potassium 4.1, Chloride 96 L, Carbon Dioxide 26.0, Anion Gap 10, BUN 46 H, Creatinine 2.22 H, Estim Creat Clear Calc 25.27, Est GFR (MDRD) Af Amer 27 L, Est GFR (MDRD) Non-Af 23 L, BUN/Creatinine Ratio 20.7 H, Glucose 209 H, Hemoglobin A1c 10.0 H, Calcium 8.8 04/29/24 06:35: POC Glucose 212 H 04/29/24 07:20: POC Glucose 170 H Radiography Diagnostic Testing: Radiology Impression Brain CT 04/28/24 09:26 IMPRESSION: 1. Hypodense lesion of the right temporal lobe with volume loss. This could be a sequela of prior infarction. Acute on chronic fracture can not be excluded. Further evaluation with MRI is recommended. 2. No acute intracranial hemorrhage. Reading Location: [facility] Hip/Pelvis X-Ray 04/28/24 09:26 IMPRESSION: A markedly comminuted fracture of the right femoral intertrochanteric region is seen, extending to the very proximal shaft and lateral neck. Minimal degenerative changes are seen of the hip joints. Sacroiliac joint demonstrate mild degenerative changes. Prominent degenerative changes are seen of the visualized lower lumbar spine. Reading Location: [id number] Shoulder X-Ray 04/28/24 09:26 IMPRESSION: Prior resection of the distal right clavicle, with stable/satisfactory alignment noted. Advanced right glenohumeral joint osteoarthritic changes have progressed since the prior study, with increased reactive changes and deformities in both sides of the articulation, as well as severe joint narrowing. A loose intra-articular body projects superior to the lateral right humeral head. No acute fracture or dislocation is seen. If clinical concern persists, short-term follow-up imaging may be obtained to rule out a currently occult fracture. Reading Location: [id number] Cervical Spine CT 04/28/24 09:34 IMPRESSION: 1. No acute fracture. 2. Degenerative changes of the cervical spine as described. Reading Location: [facility] Chest X-Ray 04/28/24 10:35 IMPRESSION: Cardiomegaly. The lungs are clear. Reading Location: [facility] Physical Exam Narrative General: Alert, Oriented x3, Cooperative, in pain HEENT: Atraumatic, PERRLA, EOMI, Normocephalic Oral: Moist Mucosa Neck: Supple, No JVD Lungs: Diminished, Normal air movement, No rhonchi, No wheeze, No rales Cardiovascular: Regular rate, Regular Rhythm, Normal S1, Normal S2, No murmurs Abdomen: Soft, Non Tender, Non-Distended, No Hepato-splenomegaly Extremities: No edema, Capillary Refill Less than 3 Seconds Skin: No rashes, No breakdown Musculoskeletal: Right extremity is shortened and rotated. Neurological: No focal neurological deficits, Motor Exam 5/5 strength throughout, Sensory exam intact to light touch and pain Psych/Mental Status: Normal Affect, Appropriate Assessment & Plan Assessment/Plan (1) Fracture of hip, right, closed: PLAN: Plan 1. Right intertrochanteric comminuted femur fracture ? Pain management ? Consult to Ortho for surgical repair ? PT/OT ? For operative repair today 2. Essential HTN/HLD ? Blood pressures are stable ? Can resume her home blood pressure medications ? Will monitor make adjustments as necessary ? Continue with simvastatin 3. 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 Continue with insulin ? Will hold her oral medications ? Accu-Cheks ACHS ? Will monitor make adjustments as necessary ? Renal function is at baseline ? A1c of 10 ? Recently started Mounjaro 4. Anxiety/depression ? Stable ? Continue with her home medications DVT: SCDs Charges/Coding Visit Charges Inpatient E&M: 85118 Subs Hosp L2
[2024-04-29] MEDS: TRANEXAMIC ACID 1,000 MG in 0.9% Normal Saline (100mL Bag) 100 ML 660 MG IV (09:53)
--- NOTE | 2024-04-29 09:55 | OP.PCM_ITS ---
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 Quality Review Specialist: alex Tasks completed by miller first: Retracting Type of Anesthesia: General and Local RN Documented Start/Stop Times: Operation Date: 04/29/24 07:30 Case Time Into Pre-Op 04/29/24 07:25 Out of Pre-Op 04/29/24 07:52 Anesthesia Start 04/29/24 07:56 Into Room 04/29/24 07:56 Procedure Start 04/29/24 08:29 Procedure End 04/29/24 09:48 Procedure Start Time: 08:29 Procedure Stop Time: 09:48 Select all DRAINS/GRAFTS/IMPLANTS that apply: Implanted device Implanted device details: synthes tfn-a 380, 11mm, 130 degree Estimated Blood Loss: 50 Specimen collected: No Description of surgery: TFN-A right hip Surgical Findings: Patient brought to the operating room theater. Placed supine on the traction fracture table. All bony prominences padded. Perineal post padded. 2 g IV Ancef administered prior to the start of the case. SCD on the nonoperative leg. Right side in traction with traction and internal rotation. Other leg attached to the middle post scissoring position and appropriately padded on both sides of the leg including at the peroneal nerve. Leg prepped and draped in the usual sterile fashion allowing over 3 minutes drying time prior to draping. Preoperative timeout performed to confirm the site patient and the surgery. Began by making a small stab incision at the proximal aspect of the hip. Carried dissection down through skin subcutaneous tissue to meticulous hemostasis. Use the partially-threaded guidewire at the tip of the greater trochanter. The fracture was comminuted, shortened pattern. Used a bone hook at the medial aspect of the calcar to hold that to back out of varus and to pushing the distal lateral segment medially, and also a guide wire in the lateral trochanter to position that to get a good start point. Achieved a good reduction. Guide wire down to lesser trochanter on AP and down center femur on lateral. Used the entry reamer followed by the ball-tipped guidewire with a slight bend on the distal end. Inserted that down center center to the distal femur just superior to the proximal pole the patella. This measured 400 so I selected a 380 long nail. This was 130 degrees neck-shaft angle. Inserted the nail, ball-tipped guidewire removed. Then use the drop-down guide. Again percutaneous technique to pass the guidewire center center slightly posterior and inferior in the humeral head and neck area down to subchondral bone. I then reamed to 115 mm and placed 115 mm helical blade, fracture distracted so then applied compression through the jig. Then advanced proximal set screw and backed off a quarter turn to allow compression. The tip to apex distance could have been more ideal, but I had to compress through the fracture to achieve an appropriate reduction. Save AP and lateral radiographs. I then turned my attention distally using perfect [place] technique inserted the two 5.0 mm fully threaded locking screws 40 mm and 40 mm long distally and proximally respectively through the oblong hole and the hole just proximal to this. These achieve good purchase. I took final AP lateral radiographs after removing all the guides both proximally and distally with good reduction and position of the nail. Wounds thoroughly irrigated incisions closed with 2-0 Vicryl suture and brayan. Skin cleaned with wet and dry dressing followed application of Mepilex border dressing. IV TXA given at the end. Patient woken up from GA, transfer off operative table taken postanesthetic care unit in stable condition. All sponge needle instrument counts were correct no complications plan to the patient readmitted under hospitalist care. Dressing changes every 2 to 3 days and discontinue the brayan in 2 weeks with activities, WBAT and positioning as tolerated. cpt [id number] Complications Complications: No Admit VTE Documentation VTE Present on Admission: No VTE Mechan Device Prophylaxis: SCD's VTE Pharm Prophylaxis ordered?: Yes
--- NOTE | 2024-04-29 10:20 | SUR.PHASEI ---
SAMANTHA NARAYAN CHARGE NURSE CHECKED VAL'S PACEMAKER/DEFIBRILLATOR WITH [employer] DEVICE. A MAGNET WAS USED IN OR.
[2024-04-29 10:29] LABS: Bedside Glucose 153 mg/dL (74-106)
--- NOTE | 2024-04-29 12:17 | PCM.POST.ANE ---
Anesthesia: Postop Eval I Current Vital Signs Temperature: 97 F Pulse Rate: 96 Blood Pressure: 117/61 Respiratory Rate: 18 Pulse Ox: 94 Oxygen Delivery Method: Nasal Cannula Oxygen Flow Rate (L/min): 2 Assessment Airway patent: Yes Spontaneous unlabored respirations: Yes Mental status: Awake nausea: No Vomiting: No Anesthesia Complication: No Fluid Hydration Crystalloid volume administer (ml): 500 Total IV fluid infused: 500 Progress Note Anesthesia document: Postop Eval 1 completed: Yes
[2024-04-29] MEDS: Insulin Glargine-YFGN 100 UNIT/ML Pen 30 UNIT SC (12:18)
[2024-04-29] MEDS: Gabapentin 300 MG Capsule PO ×2 (12:18→21:43)
[2024-04-29] MEDS: Venlafaxine XR 75 MG Capsule PO (12:18)
[2024-04-29] MEDS: Calcitriol 0.25 MCG Capsule 0.5 MCG PO (12:19)
[2024-04-29] MEDS: Metoprolol(XL)Succ 50 MG Tablet PO (12:19)
--- NOTE | 2024-04-29 12:19 | PCM.POSTANE2 ---
Anesthesia Postop Eval I Sum Postop Eval Completion status Anesthesia document: Postop Eval 1 completed: Yes Anesthesia Postop Eval I Summary Anesthesia Postop Eval I Summary: Anesthesia Postop Eval I: Assessment Summary Airway patent Yes 04/29/24 12:18 Spontaneous unlabored Yes 04/29/24 12:18 respirations Mental status Awake 04/29/24 12:18 nausea No 04/29/24 12:18 Vomiting No 04/29/24 12:18 Anesthesia Postop Eval I: Fluid Summary Crystalloid volume administer 500 04/29/24 12:18 (ml) Colloids volume administered ( ml) Blood Product volume administered (ml) Total IV fluid infused 500 04/29/24 12:18 Anesthesia Postop Eval I: Summary Notes Anesthesia Complication No 04/29/24 12:18 Anesthesia Complication Comment: Post-operative progress note Anesthesia: Postop Eval II Evaluation Mental status: Awake Pain Level: 2 nausea: No Vomiting: No
[2024-04-29] MEDS: Lidocaine 5% Patch 2 PATCH TOPICAL (12:46)
[2024-04-29] MEDS: hydrALAZINE 25 MG Tablet PO ×2 (14:50→21:33)
--- NOTE | 2024-04-29 15:10 | CASEMGMT ---
Addendum entered by Felicia Carson 04/29/24 15:28: Pt's sons met with SW. If TCU is unable to accept, next choices are [facility] and [facility]. JAG Navarro Original Note: Social Work SW met with pt and two sons to discuss discharge plan. PT and family agreeable that pt will need SNF placement at time of discharge. A list of SNF providers including quality and resource use data and consistent with the patient?s preferred geographic region, medical needs, and insurance network were provided from the [employer] Guide. Preferred provider is [facility]. Referral sent to Sherita in TCU. SW will await determination of acceptance. JAG Navarro
[2024-04-29 16:54] LABS: Bedside Glucose 362 mg/dL (74-106)
[2024-04-29] MEDS: Atorvastatin Calcium 20 MG Tablet PO (21:33)
[2024-04-29 22:11] LABS: Bedside Glucose 376 mg/dL (74-106)
[2024-04-30] VITALS (10 sets, daily range): BP systolic 93–132; BP diastolic 40–87; PULSE 78–106; RESP 18–20; TEMP 36.6–37.2; O2SAT 95–99
[2024-04-30] MEDS: oxyCODONE 5 MG Tablet PO ×4 (02:56→21:18)
[2024-04-30 03:17] LABS: Bedside Glucose 217 mg/dL (74-106)
[2024-04-30] MEDS: Acetaminophen 500 MG Tablet 1000 MG PO ×3 (06:22→21:35)
[2024-04-30] MEDS: Insulin Lispro 100 UNIT/ML INSULN.PEN SC ×4 (06:22→21:39)
[2024-04-30] MEDS: hydrALAZINE 25 MG Tablet PO ×2 (06:22→21:35)
[2024-04-30 06:49] LABS: Bedside Glucose 207 mg/dL (74-106)
[2024-04-30 07:45] LABS: Anion Gap 7 (5-15); BUN 49 mg/dL (7-18); BUN/Creat Ratio 20.8 RATIO (10-20); Calcium,Total 10.1 mg/dL (8.5-10.1); Chloride 97 mmol/L (98-107); Creatinine, Serum 2.36 mg/dL (0.55-1.02); EST Glomerular Filtration Rate 21 mL/min (>60); Est Glom Filt Rate - Afr Amer 26 mL/min (>60); Estimated Creatinine Clearance 23.77 ml/min; Glucose 202 mg/dL (74-106); Potassium 5.1 mmol/L (3.5-5.1); Sodium Level 130 mmol/L (136-145)
[2024-04-30 07:56] LABS: Absolute Lymphocyte Count 1.54 X10^3/uL (0.83-4.51); Absolute Neutrophil Count 7.7 X10^3/uL (2.0-7.7); Basophil# 0.04 X10^3/uL; Basophil% 0.4 % (0-1); Eosinophil# 0.05 X10^3/uL; Eosinophils% 0.5 % (0-5); Hematocrit 27.2 % (37-47); Lymphocyte # 1.54 X10^3/ul (0.83-4.51); Lymphocyte % 14.7 % (19-41); Mean Corp Hgb Conc 33.1 g/dL (32-36); Mean Corpuscular Hgb 32.1 pg (27.0-32.0); Mean Corpuscular Volume 97.1 fL (81-99); Mean Platelet Vol. 9.7 fl (6.2-12.0); Monocyte# 1.07 X10^3/uL; Monocyte% 10.2 % (0-10); NRBC Flagged by Analyzer 0 % (0-5); Neutrophil # 7.72 X10^3/uL (2.7-7.7); Neutrophil % 73.6 % (47-70); Platelet Count 190 K/mm3 (150-450); RBC Distribution Width CV 13.9 % (11.6-14.6); RBC Distribution Width SD 49.7 fl (35.1-43.9); White Blood Count 10.5 K/mm3 (4.4-11.0)
[2024-04-30] MEDS: Calcitriol 0.25 MCG Capsule 0.5 MCG PO (08:01)
[2024-04-30] MEDS: Gabapentin 300 MG Capsule PO ×2 (08:01→21:43)
[2024-04-30] MEDS: Venlafaxine XR 75 MG Capsule PO (08:02)
[2024-04-30] MEDS: Insulin Glargine-YFGN 100 UNIT/ML Pen 30 UNIT SC (08:02)
--- NOTE | 2024-04-30 11:02 | CASEMGMT ---
Social Work TCU is able to accept pt and pt can be admitted tomorrow. SW met with pt and informed and pt is agreeable to dc plan. Phone call to pt lili Dye and informed of acceptance and that pt cannot receive Mounjoro medication while in TCU. Son is agreeable to dc plan. Physician notified pt can admit to TCU tomorrow. Plan: TCU, on Saturday JAG Navarro
--- NOTE | 2024-04-30 11:18 | PCM.PN.HOSP ---
Subjective Subjective Doing well, no issues overnight. Pain seems to be controlled, slight decrease in her hemoglobin anticipated after surgery Objective Data Objective Data Vital Signs: Vital Signs Temp Pulse Resp BP Pulse Ox O2 Del Method O2 Flow Rate 97.9 F 101 H 18 93/40 L 97 Room Air 2 04/30/24 09:40 04/30/24 09:40 04/30/24 09:40 04/30/24 09:40 04/30/24 09:40 04/30/24 09:40 04/30/24 08:54 Oxygen Flow Rate (L/min) 2 Oxygen Delivery Method Room Air Weight: 263 lb 3.711 oz Body Mass Index (BMI) 46.6 Intake & Output: Intake and Output for Last 24 Hours 04/29/24 04/30/24 05/01/24 03:59 03:59 03:59 Intake Total 990 / 990 120 / 120 Output Total 1700 / 1700 1000 / 1000 Balance -710 / -710 -880 / -880 Lab / Micro Data 04/30/24 07:44 04/30/24 05:58 Labs: Laboratory Results - last 24 hr 04/29/24 16:35: POC Glucose 362 H 04/29/24 21:42: POC Glucose 376 H 04/30/24 02:49: POC Glucose 217 H 04/30/24 05:58: WBC Cancelled, Corrected WBC Cancelled, RBC Cancelled, Hgb Cancelled, Hct Cancelled, MCV Cancelled, MCH Cancelled, MCHC Cancelled, RDW Std Deviation Cancelled, RDW Coeff of Yoel Cancelled, Plt Count Cancelled, MPV Cancelled, Immature Gran % (Auto) Cancelled, Neut % (Auto) Cancelled, Lymph % (Auto) Cancelled, [place] % (Auto) Cancelled, Eos % (Auto) Cancelled, Baso % (Auto) Cancelled, Absolute Neuts (auto) Cancelled, Absolute Lymphs (auto) Cancelled, Total Counted Cancelled, Neutrophils % (Manual) Cancelled, Band Neutrophils % Cancelled, Lymphocytes % (Manual) Cancelled, Monocytes % (Manual) Cancelled, Eosinophils % (Manual) Cancelled, Basophils % (Manual) Cancelled, Metamyelocytes % Cancelled, Myelocytes % Cancelled, Promyelocytes % Cancelled, Blast Cells % Cancelled, Plasma Cell % (Manual) Cancelled, Other Cells % Cancelled, Nucleated RBC % Cancelled, Nucleated RBCs/100 WBC Cancelled, Differential Comment Cancelled, Diff Path Review Cancelled, Hypersegmented Neuts Cancelled, Atypical Lymphocytes Cancelled, Reactive Lymphocytes Cancelled, Smudge Cells Cancelled, Toxic Granulation Cancelled, Toxic Vacuolation Cancelled, Dohle Bodies Cancelled, Ami Rods Cancelled, Platelet Estimate Cancelled, Plt Morphology Comment Cancelled, RBC Morphology Cancelled 04/30/24 05:58: RBC Morphology Cancelled, Polychromasia Cancelled, Hypochromasia Cancelled, Basophilic Stippling Cancelled, Anisocytosis Cancelled, Microcytosis Cancelled, Macrocytosis Cancelled, Spherocytes Cancelled, Sickle Cells Cancelled, Target Cells Cancelled, Tear Drop Cells Cancelled, Ovalocytes Cancelled, Stomatocytes Cancelled, [place] Bodies Cancelled, [place] Cells Cancelled, Bite Cells Cancelled, Crenated Cell Cancelled, Acanthocytes (Spur) Cancelled, Rouleaux Cancelled, Schistocytes Cancelled, Sodium 130 L, Potassium 5.1, Chloride 97 L, Carbon Dioxide 25.0, Anion Gap 7, BUN 49 H, Creatinine 2.36 H, Estim Creat Clear Calc 23.77, Est GFR (MDRD) Af Amer 26 L, Est GFR (MDRD) Non-Af 21 L, BUN/Creatinine Ratio 20.8 H, Glucose 202 H, Calcium 10.1 04/30/24 06:17: POC Glucose 207 H 04/30/24 07:44: WBC 10.5, RBC 2.80 L, Hgb 9.0 L, Hct 27.2 L, MCV 97.1, MCH 32.1 H, MCHC 33.1, RDW Std Deviation 49.7 H, RDW Coeff of Yoel 13.9, Plt Count 190, MPV 9.7, Immature Gran % (Auto) 0.600, Neut % (Auto) 73.6 H, Lymph % (Auto) 14.7 L, [place] % (Auto) 10.2 H, Eos % (Auto) 0.5, Baso % (Auto) 0.4, Absolute Neuts (auto) 7.7, Absolute Lymphs (auto) 1.54, Nucleated RBC % 0 Physical Exam Narrative General: Alert, Oriented x3, Cooperative, no acute distress HEENT: Atraumatic, PERRLA, EOMI, Normocephalic Oral: Moist Mucosa Neck: Supple, No JVD Lungs: Diminished, Normal air movement, No rhonchi, No wheeze, No rales Cardiovascular: Regular rate, Regular Rhythm, Normal S1, Normal S2, No murmurs Abdomen: Soft, Non Tender, Non-Distended, No Hepato-splenomegaly Extremities: No edema, Capillary Refill Less than 3 Seconds Skin: Incision and dressing CDI Musculoskeletal: Right extremity is shortened and rotated. Neurological: No focal neurological deficits, Motor Exam 5/5 strength throughout, Sensory exam intact to light touch and pain Psych/Mental Status: Normal Affect, Appropriate Assessment & Plan Assessment/Plan (1) Fracture of hip, right, closed: PLAN: Plan 1. Right intertrochanteric comminuted femur fracture status post repair 04/29/2024 ? Pain management ? Appreciate Ortho assistance ? PT/OT ? Plan for TCU on discharge 2. Essential HTN/HLD ? Blood pressures are stable ? Can resume her home blood pressure medications ? Will monitor make adjustments as necessary ? Continue with simvastatin 3. 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 Continue with insulin ? Will hold her oral medications ? Accu-Cheks ACHS ? Will monitor make adjustments as necessary ? Renal function is at baseline ? A1c of 10 ? Recently started Mounjaro 4. Anxiety/depression ? Stable ? Continue with her home medications DVT: Will reach out to Ortho for chemical prophylaxis recommendations Charges/Coding Visit Charges Inpatient E&M: 52063 Subs Hosp L2
[2024-04-30 11:31] LABS: Bedside Glucose 271 mg/dL (74-106)
[2024-04-30] MEDS: Rivaroxaban 10 MG Tablet PO (16:28)
[2024-04-30 16:50] LABS: Bedside Glucose 284 mg/dL (74-106)
[2024-04-30] MEDS: Atorvastatin Calcium 20 MG Tablet PO (21:35)
[2024-04-30 22:32] LABS: Bedside Glucose 289 mg/dL (74-106)
[2024-05-01] VITALS (9 sets, daily range): BP systolic 105–132; BP diastolic 51–73; PULSE 103–111; RESP 16–18; TEMP 36.6–37.1; O2SAT 90–99
[2024-05-01 06:05] LABS: Absolute Lymphocyte Count 1.17 X10^3/uL (0.83-4.51); Absolute Neutrophil Count 10.2 X10^3/uL (2.0-7.7); Basophil# 0.03 X10^3/uL; Basophil% 0.2 % (0-1); Eosinophil# 0.16 X10^3/uL; Eosinophils% 1.3 % (0-5); Hematocrit 27.6 % (37-47); Hemoglobin 8.8 g/dL (12.0-15.0); Lymphocyte # 1.17 X10^3/ul (0.83-4.51); Lymphocyte % 9.3 % (19-41); Mean Corp Hgb Conc 31.9 g/dL (32-36); Mean Corpuscular Hgb 31.5 pg (27.0-32.0); Mean Corpuscular Volume 98.9 fL (81-99); Mean Platelet Vol. 9.7 fl (6.2-12.0); Monocyte# 0.85 X10^3/uL; Monocyte% 6.8 % (0-10); NRBC Flagged by Analyzer 0 % (0-5); Neutrophil % 81.5 % (47-70); Platelet Count 211 K/mm3 (150-450); RBC Distribution Width CV 13.9 % (11.6-14.6); RBC Distribution Width SD 50.8 fl (35.1-43.9); Red Blood Count 2.79 M/mm3 (4.2-5.4); White Blood Count 12.5 K/mm3 (4.4-11.0)
[2024-05-01] MEDS: Insulin Lispro 100 UNIT/ML INSULN.PEN SC ×4 (06:14→21:29)
[2024-05-01] MEDS: hydrALAZINE 25 MG Tablet PO ×2 (06:15→21:35)
[2024-05-01] MEDS: Acetaminophen 500 MG Tablet 1000 MG PO ×3 (06:15→21:36)
[2024-05-01 06:26] LABS: Anion Gap 8 (5-15); BUN 48 mg/dL (7-18); BUN/Creat Ratio 19.9 RATIO (10-20); Calcium,Total 9.8 mg/dL (8.5-10.1); Chloride 95 mmol/L (98-107); Creatinine, Serum 2.41 mg/dL (0.55-1.02); EST Glomerular Filtration Rate 21 mL/min (>60); Est Glom Filt Rate - Afr Amer 25 mL/min (>60); Estimated Creatinine Clearance 23.28 ml/min; Glucose 266 mg/dL (74-106); Potassium 5.3 mmol/L (3.5-5.1); Sodium Level 128 mmol/L (136-145)
[2024-05-01 06:50] LABS: Bedside Glucose 274 mg/dL (74-106)
--- NOTE | 2024-05-01 07:07 | PN.ORTHO_ITS ---
Subjective Subjective Saw the patient yesterday, POD 1 . no concerns. Objective Data Objective Data Vital Signs: Vital Signs Temp Pulse Resp BP Pulse Ox O2 Del Method O2 Flow Rate 98.7 F 107 H 18 132/70 H 99 Nasal Cannula 2 05/01/24 06:06 05/01/24 06:15 05/01/24 06:06 05/01/24 06:15 05/01/24 06:06 05/01/24 06:06 05/01/24 06:06 Oxygen Flow Rate (L/min) 2 Oxygen Delivery Method Nasal Cannula Weight: 263 lb 3.711 oz Body Mass Index (BMI) 46.6 Intake & Output: Intake and Output for Last 24 Hours 04/29/24 04/30/24 05/01/24 23:59 23:59 23:59 Intake Total 990 / 990 915 / 915 525 / 525 Output Total 1450 / 1700 2900 / 2900 850 / 850 Balance -460 / -710 -1985 / -1985 -325 / -325 Lab / Micro Data Attestation: I reviewed the patient's lab results. 05/01/24 04:42 05/01/24 04:42 Labs: Laboratory Results - last 24 hr 04/30/24 05:58: WBC Cancelled, Corrected WBC Cancelled, RBC Cancelled, Hgb Cancelled, Hct Cancelled, MCV Cancelled, MCH Cancelled, MCHC Cancelled, RDW Std Deviation Cancelled, RDW Coeff of Yoel Cancelled, Plt Count Cancelled, MPV Cancelled, Immature Gran % (Auto) Cancelled, Neut % (Auto) Cancelled, Lymph % (Auto) Cancelled, [place] % (Auto) Cancelled, Eos % (Auto) Cancelled, Baso % (Auto) Cancelled, Absolute Neuts (auto) Cancelled, Absolute Lymphs (auto) Cancelled, Total Counted Cancelled, Neutrophils % (Manual) Cancelled, Band Neutrophils % Cancelled, Lymphocytes % (Manual) Cancelled, Monocytes % (Manual) Cancelled, Eosinophils % (Manual) Cancelled, Basophils % (Manual) Cancelled, Metamyelocytes % Cancelled, Myelocytes % Cancelled, Promyelocytes % Cancelled, Blast Cells % Cancelled, Plasma Cell % (Manual) Cancelled, Other Cells % Cancelled, Nucleated RBC % Cancelled, Nucleated RBCs/100 WBC Cancelled, Differential Comment Cancelled, Diff Path Review Cancelled, Hypersegmented Neuts Cancelled, Atypical Lymphocytes Cancelled, Reactive Lymphocytes Cancelled, Smudge Cells Cancelled, Toxic Granulation Cancelled, Toxic Vacuolation Cancelled, Dohle Bodies Cancelled, Ami Rods Cancelled, Platelet Estimate Cancelled, Plt Morphology Comment Cancelled, RBC Morphology Cancelled 04/30/24 05:58: RBC Morphology Cancelled, Polychromasia Cancelled, Hypochromasia Cancelled, Basophilic Stippling Cancelled, Anisocytosis Cancelled, Microcytosis Cancelled, Macrocytosis Cancelled, Spherocytes Cancelled, Sickle Cells Cancelled, Target Cells Cancelled, Tear Drop Cells Cancelled, Ovalocytes Cancelled, Stomatocytes Cancelled, [place] Bodies Cancelled, [place] Cells Cancelled, Bite Cells Cancelled, Crenated Cell Cancelled, Acanthocytes (Spur) Cancelled, Rouleaux Cancelled, Schistocytes Cancelled, Sodium 130 L, Potassium 5.1, Chloride 97 L, Carbon Dioxide 25.0, Anion Gap 7, BUN 49 H, Creatinine 2.36 H, Estim Creat Clear Calc 23.77, Est GFR (MDRD) Af Amer 26 L, Est GFR (MDRD) Non-Af 21 L, BUN/Creatinine Ratio 20.8 H, Glucose 202 H, Calcium 10.1 04/30/24 07:44: WBC 10.5, RBC 2.80 L, Hgb 9.0 L, Hct 27.2 L, MCV 97.1, MCH 32.1 H, MCHC 33.1, RDW Std Deviation 49.7 H, RDW Coeff of Yoel 13.9, Plt Count 190, MPV 9.7, Immature Gran % (Auto) 0.600, Neut % (Auto) 73.6 H, Lymph % (Auto) 14.7 L, [place] % (Auto) 10.2 H, Eos % (Auto) 0.5, Baso % (Auto) 0.4, Absolute Neuts (auto) 7.7, Absolute Lymphs (auto) 1.54, Nucleated RBC % 0 04/30/24 11:12: POC Glucose 271 H 04/30/24 16:26: POC Glucose 284 H 04/30/24 21:37: POC Glucose 289 H 05/01/24 04:42: WBC 12.5 H, RBC 2.79 L, Hgb 8.8 L, Hct 27.6 L, MCV 98.9, MCH 31.5, MCHC 31.9 L, RDW Std Deviation 50.8 H, RDW Coeff of Yoel 13.9, Plt Count 211, MPV 9.7, Immature Gran % (Auto) 0.900, Neut % (Auto) 81.5 H, Lymph % (Auto) 9.3 L, [place] % (Auto) 6.8, Eos % (Auto) 1.3, Baso % (Auto) 0.2, Absolute Neuts (auto) 10.2 H, Absolute Lymphs (auto) 1.17, Nucleated RBC % 0, Sodium 128 L, P otassium 5.3 H, Chloride 95 L, Carbon Dioxide 25.0, Anion Gap 8, BUN 48 H, C reatinine 2.41 H, Estim Creat Clear Calc 23.28, Est GFR (MDRD) Af Amer 25 L, Est GFR (MDRD) Non-Af 21 L, BUN/Creatinine Ratio 19.9, Glucose 266 H, Calcium 9.8 05/01/24 06:02: POC Glucose 274 H Physical Exam Const no apparent distress and well nourished Extremity Extremity Narrative: some moderate strikethrough, but dressing dry otherwise intact. nvi. foot warm well perfused. Assessment & Plan Assessment/Plan (1) Fracture of hip, right, closed: PLAN: pod 1 right hip ORIF. doing well. rivaroxaban for vte prophylaxis. WBAT. will follow.
[2024-05-01] MEDS: Insulin Glargine-YFGN 100 UNIT/ML Pen 40 UNIT SC (10:47)
[2024-05-01] MEDS: Metoprolol(XL)Succ 50 MG Tablet PO (10:48)
[2024-05-01] MEDS: Venlafaxine XR 75 MG Capsule PO (10:48)
[2024-05-01] MEDS: Calcitriol 0.25 MCG Capsule 0.5 MCG PO (10:48)
[2024-05-01] MEDS: Gabapentin 300 MG Capsule PO ×2 (10:53→21:35)
[2024-05-01 11:23] LABS: Bedside Glucose 375 mg/dL (74-106)
--- NOTE | 2024-05-01 11:35 | PN.HOSP_ITS ---
Subjective Subjective Doing well, no issues overnight. Blood pressures are stable continue to monitor Objective Data Objective Data Vital Signs: Vital Signs Temp Pulse Resp BP Pulse Ox O2 Del Method O2 Flow Rate 98.7 F 109 H 16 123/73 H 94 Room Air 2 05/01/24 10:35 05/01/24 10:48 05/01/24 10:35 05/01/24 10:35 05/01/24 10:35 05/01/24 10:35 05/01/24 06:06 Oxygen Flow Rate (L/min) 2 Oxygen Delivery Method Room Air Weight: 263 lb 3.711 oz Body Mass Index (BMI) 46.6 Intake & Output: Intake and Output for Last 24 Hours 04/30/24 05/01/24 05/02/24 03:59 03:59 03:59 Intake Total 990 / 990 915 / 915 525 / 525 Output Total 1700 / 1700 2650 / 2650 850 / 850 Balance -710 / -710 -1735 / -1735 -325 / -325 Lab / Micro Data 05/01/24 04:42 05/01/24 04:42 Labs: Laboratory Results - last 24 hr 04/30/24 16:26: POC Glucose 284 H 04/30/24 21:37: POC Glucose 289 H 05/01/24 04:42: WBC 12.5 H, RBC 2.79 L, Hgb 8.8 L, Hct 27.6 L, MCV 98.9, MCH 31.5, MCHC 31.9 L, RDW Std Deviation 50.8 H, RDW Coeff of Yoel 13.9, Plt Count 211, MPV 9.7, Immature Gran % (Auto) 0.900, Neut % (Auto) 81.5 H, Lymph % (Auto) 9.3 L, [place] % (Auto) 6.8, Eos % (Auto) 1.3, Baso % (Auto) 0.2, Absolute Neuts (auto) 10.2 H, Absolute Lymphs (auto) 1.17, Nucleated RBC % 0, Sodium 128 L, P otassium 5.3 H, Chloride 95 L, Carbon Dioxide 25.0, Anion Gap 8, BUN 48 H, C reatinine 2.41 H, Estim Creat Clear Calc 23.28, Est GFR (MDRD) Af Amer 25 L, Est GFR (MDRD) Non-Af 21 L, BUN/Creatinine Ratio 19.9, Glucose 266 H, Calcium 9.8 05/01/24 06:02: POC Glucose 274 H 05/01/24 10:58: POC Glucose 375 H Physical Exam Narrative General: Alert, Oriented x3, Cooperative, no acute distress HEENT: Atraumatic, PERRLA, EOMI, Normocephalic Oral: Moist Mucosa Neck: Supple, No JVD Lungs: Diminished, Normal air movement, No rhonchi, No wheeze, No rales Cardiovascular: Regular rate, Regular Rhythm, Normal S1, Normal S2, No murmurs Abdomen: Soft, Non Tender, Non-Distended, No Hepato-splenomegaly Extremities: No edema, Capillary Refill Less than 3 Seconds Skin: Incision and dressing CDI Musculoskeletal: Right extremity is shortened and rotated. Neurological: No focal neurological deficits, Motor Exam 5/5 strength throughout, Sensory exam intact to light touch and pain Psych/Mental Status: Normal Affect, Appropriate Assessment & Plan Assessment/Plan (1) Fracture of hip, right, closed: PLAN: Plan 1. Right intertrochanteric comminuted femur fracture status post repair 04/29/2024 ? Pain management ? Appreciate Ortho assistance ? PT/OT ? Plan for TCU on discharge 2. Essential HTN/HLD ? Blood pressures are stable ? Can resume her home blood pressure medications ? Will monitor make adjustments as necessary ? Continue with simvastatin 3. 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 Continue with insulin ? Will hold her oral medications ? Accu-Cheks ACHS ? Will monitor make adjustments as necessary ? Renal function is at baseline ? A1c of 10 ? Recently started Mounjaro 4. Anxiety/depression ? Stable ? Continue with her home medications DVT: Xarelto Charges/Coding Visit Charges Inpatient E&M: 76505 Subs Hosp L2
--- NOTE | 2024-05-01 12:33 | CASEMGMT ---
Social Work- SW met with pt to provide encouragement and support in her work with therapy. SW introduced self and role. Pt was laying in bed eyes closed, moaning, reporting that she was in pain. Pt did not actively engage in conversation. SW provided education that insurance will look for progress during her time in TCU and encouraged pt to think about what her goals will be if she is unable to discharge home due to lack of progress. Pt asked for chapstick, opened eyes, actively engaged in conversation about her chapstick and dry lips prior to her nurse coming in to provide medication. MARI updated physician. SW remains available to follow. Plan: TCU; skilled level of care JAG Dacosta
[2024-05-01] MEDS: oxyCODONE 5 MG Tablet PO (13:05)
[2024-05-01] MEDS: Lidocaine 5% Patch 2 PATCH TOPICAL (13:15)
[2024-05-01] MEDS: 0.9% Normal Saline (1000mL) 1,000 ML 100 ML IV (13:23)
[2024-05-01] MEDS: Insulin Lispro 100 UNIT/ML INSULN.PEN 10 UNIT SC (16:31)
[2024-05-01] MEDS: Rivaroxaban 10 MG Tablet PO (16:33)
[2024-05-01 17:38] LABS: Bedside Glucose 325 mg/dL (74-106)
[2024-05-01] MEDS: Atorvastatin Calcium 20 MG Tablet PO (21:36)
[2024-05-01 23:32] LABS: Bedside Glucose 178 mg/dL (74-106)
[2024-05-02] VITALS (8 sets, daily range): BP systolic 108–132; BP diastolic 60–75; PULSE 98–110; RESP 16–18; TEMP 36.6–37.2; O2SAT 95–97
--- NOTE | 2024-05-02 04:12 | NURSING ---
05/02/2024 at 0150: pt pressed call light to let staff know that she wrapped her tele cords around her neck. RAIL CAR LOADER went into room to help remove it from neck. RN came into room and pt states, I just wanted someone to come in here and sit with me. RN provided emotional support and patient denied any thoughts of hurting herself. Patient now asleep in bed with no indication of self harm
[2024-05-02] MEDS: hydrALAZINE 25 MG Tablet PO (05:44)
[2024-05-02] MEDS: Acetaminophen 500 MG Tablet 1000 MG PO ×2 (05:45→13:50)
[2024-05-02 06:11] LABS: Absolute Neutrophil Count 8.3 X10^3/uL (2.0-7.7); Basophil# 0.05 X10^3/uL; Basophil% 0.4 % (0-1); Eosinophil# 0.18 X10^3/uL; Eosinophils% 1.6 % (0-5); Hematocrit 25.2 % (37-47); Hemoglobin 8.1 g/dL (12.0-15.0); Lymphocyte % 13.4 % (19-41); Mean Corp Hgb Conc 32.1 g/dL (32-36); Mean Corpuscular Hgb 31.6 pg (27.0-32.0); Mean Corpuscular Volume 98.4 fL (81-99); Mean Platelet Vol. 9.5 fl (6.2-12.0); Monocyte# 0.95 X10^3/uL; Monocyte% 8.5 % (0-10); NRBC Flagged by Analyzer 0.2 % (0-5); Neutrophil # 8.34 X10^3/uL (2.7-7.7); Neutrophil % 74.8 % (47-70); Platelet Count 207 K/mm3 (150-450); RBC Distribution Width CV 13.8 % (11.6-14.6); RBC Distribution Width SD 49.6 fl (35.1-43.9); Red Blood Count 2.56 M/mm3 (4.2-5.4); White Blood Count 11.2 K/mm3 (4.4-11.0)
[2024-05-02 06:27] LABS: Anion Gap 7 (5-15); BUN 50 mg/dL (7-18); BUN/Creat Ratio 24.4 RATIO (10-20); Calcium,Total 9.6 mg/dL (8.5-10.1); Chloride 99 mmol/L (98-107); Creatinine, Serum 2.05 mg/dL (0.55-1.02); EST Glomerular Filtration Rate 25 mL/min (>60); Est Glom Filt Rate - Afr Amer 30 mL/min (>60); Estimated Creatinine Clearance 27.37 ml/min; Glucose 255 mg/dL (74-106); Potassium 4.9 mmol/L (3.5-5.1); Sodium Level 132 mmol/L (136-145)
[2024-05-02 07:31] LABS: Bedside Glucose 212 mg/dL (74-106)
[2024-05-02] MEDS: Insulin Lispro 100 UNIT/ML INSULN.PEN 10 UNIT SC ×3 (08:18→16:43)
[2024-05-02] MEDS: Insulin Lispro 100 UNIT/ML INSULN.PEN SC ×3 (08:18→16:43)
[2024-05-02] MEDS: Venlafaxine XR 75 MG Capsule PO (09:23)
[2024-05-02] MEDS: Calcitriol 0.25 MCG Capsule 0.5 MCG PO (09:23)
[2024-05-02] MEDS: Insulin Glargine-YFGN 100 UNIT/ML Pen 50 UNIT SC (09:24)
[2024-05-02] MEDS: Metoprolol(XL)Succ 50 MG Tablet PO (09:24)
[2024-05-02] MEDS: Gabapentin 300 MG Capsule PO (09:27)
--- NOTE | 2024-05-02 10:40 | PCM.TXEXTCAR ---
Diet Diet Order/Speech Therapy: 04/28/24 14:44 Diet: Consistent Carb - Calorie Controlled Food consistency:: Regular Liquid Consistency:: Regular/Thin How many daily calories?: 1500 calorie Routine Orders/Code Status Routine Lab Work: CBC and BMP Code Status: DNRCC-A DC O2, CPAP, BIPAP needs Home O2 Discharge instructions: No Wound(s) right hip: Wound Type: Surgical Incision upper right leg: Wound Type: Surgical Incision Therapies Physical Therapy: Eval and Treat Occupational Therapy: Eval and Treat Problem/Diagnosis (1) Fracture of hip, right, closed: Status: Acute Code(s): S72.001A - Fracture of unspecified part of neck of right femur, initial encounter for closed fracture Plan 1. Right intertrochanteric comminuted femur fracture status post repair 04/29/2024 ? Pain management ? Appreciate Ortho assistance ? PT/OT ? Plan for TCU on discharge 2. Essential HTN/HLD ? Blood pressures are stable ? Can resume her home blood pressure medications ? Will monitor make adjustments as necessary ? Continue with simvastatin 3. 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 Continue with insulin ? Will hold her oral medications ? Accu-Cheks ACHS ? Will monitor make adjustments as necessary ? Renal function is at baseline ? A1c of 10 ? Recently started Mounjaro 4. Anxiety/depression ? Stable ? Continue with her home medications DVT: Xarelto Allergies/Procedures Done in Hospital Allergies levofloxacin (From Levaquin) Allergy (Verified 04/29/24 07:25) Hives Sulfa (Sulfonamide Antibiotics) Allergy (Verified 04/29/24 07:25) Hives Procedures: None Type of Care/Length of Stay Estimated LOS: Convalescent Care Less Than 30 days Type of Care Needed: Skilled Rehab Potential: Good Prognosis: Good Additional Orders/Day of Discharge Day of Discharge: 05/02/24 Discharge Plan Admission Admit Date/Time: 04/28/24 11:39 Attending Provider: Clifton Hanson Primary Care Provider: Neel Ng Consulting Providers: Horacio Garcia Discharge Orders/Prescriptions Prescriptions: New oxycodone 5 mg Tablet 5 mg PO Q4H PRN PRN (Reason: Pain Score 4-10) Qty: 0 0RF Xarelto 10 mg Tablet 10 mg PO DINNER 26 Days Qty: 0 0RF Continued simvastatin 40 MG tablet 40 mg PO QHS Patient Comments: CHOLESTEROL melatonin 10 MG tablet 10 mg PO QHS 0RF calcitriol 0.5 mcg Capsule 0.5 mcg PO DAILY PreserVision Lutein 226 mg-200 unit -0.8 mg-5 mg Capsule 1 cap PO DAILY insulin glargine [Lantus Solostar U-100 Insulin] 100 UNITS/ML insulin pen 60 unit subcut DAILY docusate sodium 100 mg Capsule 100 mg PO DAILY PRN (Reason: stool softener) senna 8.6 mg Capsule 8.6 mg PO DAILY PRN (Reason: constipation) Trelegy Ellipta 100-62.5-25 mcg Blister With Device 1 inh INHALATION DAILY hydralazine 25 mg tablet 25 mg PO TID Mounjaro 2.5 mg/0.5 mL pen injector See Rx Instructions SUBCUT .COMPLEX Patient Comments: [NO ORIGINAL SIG] Rx Instructions: lowest dose subcutaneously; every saturday venlafaxine 75 mg capsule,extended release 24hr 75 mg PO DAILY metoprolol succinate 50 mg tablet extended release 24 hr 50 mg PO DAILY lidocaine 5 % Adhesive Patch,Medicated 2 patch topical DAILY PRN (Reason: pain, moderate) Protocol: *Topical Application Instructions APPLICATION INSTRUCTIONS: Apply to R groin/top of thigh gabapentin 300 mg Capsule 300 mg PO Q12H Held furosemide 20 mg Tablet 20 mg PO DAILY Hold Instructions: Resume on 05/04/24. Referrals / Follow Up: Neel Ng MD [Primary Care Provider] - Disposition Disposition (needs filled in before D/C Order can be placed): Senior Living Facility
[2024-05-02 11:20] LABS: Bedside Glucose 176 mg/dL (74-106)
--- NOTE | 2024-05-02 13:54 | PCM.DC.SUM ---
Providers Date of Admission: 04/28/24 Primary Care Physician: Dr. Neel Ng MD Consultations 04/28/24 14:44 Consult: Orthopedics Routine Consulting Provider: Horacio Garcia Reason for Consult: Hip fracture EMERGENT Consult: No MD Notified: Yes Date Notified: 04/28/24 Time Notified: 11:42 Method of Notification: ED Physician Initiated Reason For Visit: HIP FRACTURE Diagnosis Discharge Diagnosis (1) Fracture of hip, right, closed: Status: Acute Code(s): S72.001A - Fracture of unspecified part of neck of right femur, initial encounter for closed fracture Medications at Discharge Home Medications simvastatin 40 mg tablet 40 mg PO QHS cholesterol 12/16/12 melatonin 10 mg sublingual tablet 10 mg PO QHS 02/20/18 calcitriol 0.5 mcg capsule 0.5 mcg PO DAILY 08/09/21 vit C 226 mg-vit E 90 mg-copper 0.8 mg-zinc oxide-lutein 5 mg capsule (PreserVision Lutein) 1 cap PO DAILY 08/09/21 insulin glargine 100 unit/mL (3 mL) subcutaneous pen (Lantus Solostar U-100 Insulin) 60 unit subcut DAILY 12/25/21 docusate sodium 100 mg capsule 100 mg PO DAILY PRN stool softener 03/30/22 furosemide 20 mg tablet 20 mg PO DAILY 03/30/22 Held on 05/02/24. Instructions: Resume on 05/04/24. sennosides 8.6 mg capsule (senna) 8.6 mg PO DAILY PRN constipation 03/30/22 fluticasone fur. 100 mcg-umeclid 62.5 mcg-vilant 25 mcg inhalat.powder (Trelegy Ellipta) 1 inh inhalation DAILY 05/23/22 hydralazine 25 mg tablet 25 mg PO TID 01/30/23 gabapentin 300 mg capsule 300 mg PO Q12H pain 04/28/24 lidocaine 5 % topical patch 2 patch topical DAILY PRN pain, moderate 04/28/24 metoprolol succinate 50 mg tablet,extended release 24 hr 50 mg PO DAILY 04/28/24 tirzepatide 2.5 mg/0.5 mL subcutaneous pen injector (Colten) See Rx Instructions subcut .COMPLEX 04/28/24 venlafaxine 75 mg capsule,extended release 24 hr 75 mg PO DAILY 04/28/24 oxycodone 5 mg tablet 5 mg PO Q4H PRN PRN Pain Score 4-10 #0 tabs 05/02/24 rivaroxaban 10 mg tablet (Xarelto) 10 mg PO DINNER 26 days #0 tabs 05/02/24 Hospital Course Operations - (R hip IM nail synthes tfn-a) Procedures None Summary of Care Provided Minutes Spent on Discharge: 31 Hospital Course: Per HPI: VAL ERICKSON, is a 79 F who presents to the hospital after mechanical fall while trying to get on her scale at home. She fell backward and hit her head but did not lose any consciousness. CT of the brain was negative for bleed. Hip x-ray demonstrated comminuted fracture of the right femoral intertrochanteric region. She was in significant pain and was started on pain medications. Orthopedic surgery was consulted planning for surgery tomorrow. Hospital Course: 1. Right intertrochanteric comminuted femur fracture status post repair on 04/29/2024?79-year-old female presented to the hospital after mechanical fall with a right femur fracture. She was in significant pain and had been placed in traction. She underwent repair on 04/29/2024 and since then has done well with physical therapy. Pain has been well-controlled and postoperatively has only been needing oxycodone 2-3 times daily. Plan will be for discharge to transitional care unit today, she expressed understanding of the risk benefits of going to the senior living and would like to go to get started on her rehab. For DVT prophylaxis will provide her with Xarelto 10 mg p.o. daily for another 26 days. She is weightbearing as tolerated on the right per orthopedic surgery. She was a little bit dry after surgery so she did receive a liter of IV fluids yesterday, she does have a history of edema so her Lasix has also been held but that can be restarted in a couple of days. I do recommend monitoring of her hemoglobin and her renal function. She has has a postoperative decrease confounded by dilutional decrease in her hemoglobin. 2. Essential hypertension, hyperlipidemia, type 2 diabetes with CKD 4 and peripheral neuropathy, anxiety, depression all chronic medical conditions which complicate her care. Her home medications were continued where appropriate Physical Exam Narrative General: Alert, Oriented x3, Cooperative, no acute distress HEENT: Atraumatic, PERRLA, EOMI, Normocephalic Oral: Moist Mucosa Neck: Supple, No JVD Lungs: Diminished, Normal air movement, No rhonchi, No wheeze, No rales Cardiovascular: Regular rate, Regular Rhythm, Normal S1, Normal S2, No murmurs Abdomen: Soft, Non Tender, Non-Distended, No Hepato-splenomegaly Extremities: No edema, Capillary Refill Less than 3 Seconds Skin: Incision and dressing CDI Musculoskeletal: Right extremity is shortened and rotated. Neurological: No focal neurological deficits, Motor Exam 5/5 strength throughout, Sensory exam intact to light touch and pain Psych/Mental Status: Normal Affect, Appropriate Weight / BMI Weight Weight: 263 lb 3.711 oz Body Mass Index (BMI) 46.6 ABG / Lab / Microbiology Data 05/02/24 05:36 05/02/24 05:36 Laboratory: Laboratory Results - last 24 hr 05/01/24 16:29: POC Glucose 325 H 05/01/24 21:14: POC Glucose 178 H 05/02/24 05:36: WBC 11.2 H, RBC 2.56 L, Hgb 8.1 L, Hct 25.2 L, MCV 98.4, MCH 31.6, MCHC 32.1, RDW Std Deviation 49.6 H, RDW Coeff of Yoel 13.8, Plt Count 207, MPV 9.5, Immature Gran % (Auto) 1.300 H, Neut % (Auto) 74.8 H, Lymph % (Auto) 13.4 L, [place] % (Auto) 8.5, Eos % (Auto) 1.6, Baso % (Auto) 0.4, Absolute Neuts (auto) 8.3 H, Absolute Lymphs (auto) 1.50, Nucleated RBC % 0.2, Sodium 132 L, Potassium 4.9, Chloride 99, Carbon Dioxide 25.0, Anion Gap 7, BUN 50 H, Creatinine 2.05 H, Estim Creat Clear Calc 27.37, Est GFR (MDRD) Af Amer 30 L, Est GFR (MDRD) Non-Af 25 L, BUN/Creatinine Ratio 24.4 H, Glucose 255 H, Calcium 9.6 05/02/24 07:14: POC Glucose 212 H 05/02/24 11:02: POC Glucose 176 H D/C Instructions DC O2, CPAP, BIPAP Needs Home O2 Discharge instructions: No Meaningful Use Info Meaningful Use Meaningful Use Diagnoses (Choose all that apply): None applicable Ischemic Stroke Statin Dosing Therapy Reference: STATIN DOSE THERAPY REFERENCE: * Patients > 75 years receive moderate or high dose statin therapy. * Patients 75 years or YOUNGER should receive HIGH intensity statin dose unless contraindicated. You will be required to document reason for non-treatment if statin daily dose does not meet guidelines. HIGH DOSE STATIN THERAPY DAILY Atorvastatin > than or = to 40 mg Rosuvastatin > than or = to 20 mg Amlodipine + Atorvastatin > than or = to 2.5/40 mg Ezetimibe + Simvastatin 10/80 mg Simvastatin 80mg Discharge Plan Admission Admit Date/Time: 04/28/24 11:39 Attending Provider: Clifton Hanson Primary Care Provider: Neel Ng Consulting Providers: Horacio Garcia Discharge Orders/Prescriptions Prescriptions: New oxycodone 5 mg Tablet 5 mg PO Q4H PRN PRN (Reason: Pain Score 4-10) Qty: 0 0RF Xarelto 10 mg Tablet 10 mg PO DINNER 26 Days Qty: 0 0RF Continued simvastatin 40 MG tablet 40 mg PO QHS Patient Comments: CHOLESTEROL melatonin 10 MG tablet 10 mg PO QHS 0RF calcitriol 0.5 mcg Capsule 0.5 mcg PO DAILY PreserVision Lutein 226 mg-200 unit -0.8 mg-5 mg Capsule 1 cap PO DAILY insulin glargine [Lantus Solostar U-100 Insulin] 100 UNITS/ML insulin pen 60 unit subcut DAILY docusate sodium 100 mg Capsule 100 mg PO DAILY PRN (Reason: stool softener) senna 8.6 mg Capsule 8.6 mg PO DAILY PRN (Reason: constipation) Trelegy Ellipta 100-62.5-25 mcg Blister With Device 1 inh INHALATION DAILY hydralazine 25 mg tablet 25 mg PO TID Mounjaro 2.5 mg/0.5 mL pen injector See Rx Instructions SUBCUT .COMPLEX Patient Comments: [NO ORIGINAL SIG] Rx Instructions: lowest dose subcutaneously; every saturday venlafaxine 75 mg capsule,extended release 24hr 75 mg PO DAILY metoprolol succinate 50 mg tablet extended release 24 hr 50 mg PO DAILY lidocaine 5 % Adhesive Patch,Medicated 2 patch topical DAILY PRN (Reason: pain, moderate) Protocol: *Topical Application Instructions APPLICATION INSTRUCTIONS: Apply to R groin/top of thigh gabapentin 300 mg Capsule 300 mg PO Q12H Held furosemide 20 mg Tablet 20 mg PO DAILY Hold Instructions: Resume on 05/04/24. Referrals / Follow Up: Neel Ng MD [Primary Care Provider] - Disposition Disposition (needs filled in before D/C Order can be placed): [facility] Charges/Coding Visit Charges Inpatient E&M: 51988 Disch Hosp >30min
[2024-05-02] MEDS: Rivaroxaban 10 MG Tablet PO (16:43)
[2024-05-02 16:50] LABS: Bedside Glucose 150 mg/dL (74-106)
--- NOTE | 2024-05-02 17:10 | NURSING ---
talked with bath house attendant, aware per report pt had denied suicidal ideas however family had stated known suicidal ideations when taking narcotics and has requested patient not receive narcotics. talked with licensed clinical social worker ayaan from ER. aware she will come up and evaluate patient prior to patient being discharged as TCU requested.
--- NOTE | 2024-05-02 17:38 | NURSING ---
Pt. Son, Hardik called [phone]- for update regarding pt. mentation. This nurse updated Hardik that patient has been Alert and oriented to person, place and time with no confusion today. Hardik proceeded to explain patients mentation yesterday and how patient acts when she takes narcotics. Hardik states that in the past patient has had bad reactions with narcotics causing suicidal thoughts and behaviors.
--- NOTE | 2024-05-02 18:04 | NURSING ---
This nurse spoke with John Dye regarding previous phone call for clarification about medication reactions. Hardik states that patient had a previous reaction with narcotics- felt that patient had a build up from the narcotics that happened over a period of a weekend- 48-72 hours- patient took medications in home such as Percocet, Oxy and Tramadol and became confused with behaviors. After this situation family took medications from home to prevent harm d/t patient threatening to take all medications. After this incident patient was then placed on depression medication and has not had an incident since.
--- NOTE | 2024-05-02 18:19 | NURSING ---
aware per Marly antoine patient is cleared regarding suicide risk and patient good to discharge to TCU. primary RN updated.
--- NOTE | 2024-05-02 18:26 | NURSING ---
tcu charge Santosh updated been seen by social work program coordinator, cleared and patient would be coming over.
--- NOTE | 2024-05-10 11:25 | CASEMGMT ---
Social Work: Late entry for 05/02/24 at 17:40. In response to request for suicide risk assessment, this was completed on 05/02/24. Assessment note was documented in error in [id number]. Please refer to that V number for assessment note/details. Marly Bach, ARMOR RECONNAISSANCE VEHICLE CREWMAN, WATER INSPECTOR
== END 2024-05-02 18:41 | disposition skilled nursing facility (03) | DRG 481 ==
LOC: ED 12:02 → MS2 13:17 → MS3 04-30 17:56
PROVIDERS: Anesthesiology; Orthopaedic Surgery Sports Medicine; Admitting Provider Family Medicine; Emergency Provider Emergency Medicine; PCP Internal Medicine; Visit Provider Family Medicine
PROC: 0QS606Z Reposition Right Upper Femur with Intramedullary Internal Fixation Device, Open Approach (ICD-10-PCS; principal; 2024-04-29 13:15)
DX: S72.141A Displaced intertrochanteric fracture of right femur, initial encounter for closed fracture (principal); N18.4 Chronic kidney disease, stage 4 (severe); E11.22 Type 2 diabetes mellitus with diabetic chronic kidney disease; Z66 Do not resuscitate; I12.9 Hypertensive chronic kidney disease with stage 1 through stage 4 chronic kidney disease, or unspecified chronic kidney disease; F32.A Depression, unspecified; E78.00 Pure hypercholesterolemia, unspecified; W01.0XXA Fall on same level from slipping, tripping and stumbling without subsequent striking against object, initial encounter; Z79.4 Long term (current) use of insulin; F41.9 Anxiety disorder, unspecified; E11.42 Type 2 diabetes mellitus with diabetic polyneuropathy; Z79.85 Long-term (current) use of injectable non-insulin antidiabetic drugs; Z79.899 Other long term (current) drug therapy; Z87.891 Personal history of nicotine dependence
CPT/HCPCS: 36415; 70450; 71045; 72125; 73030; 73501; 73502; 76000; 80048; 82962; 83036; 85025; 86850; 86900; 86901; 93005; 97110; 97116; 97162; 97167; 97530; 99285; C1713; A4216; J2405

== ENCOUNTER 2024-05-02 19:47 | Inpatient (IN) | payer MEDICARE, OTHER, SELFPAY ==
[2024-05-02 19:20] VITALS: BP 135/79; PULSE 103; RESP 18; TEMP 36.2; O2SAT 93; BMI 46.3
[2024-05-02 19:47] VITALS: BMI 46.3
[2024-05-02 20:12] VITALS: RESP 20
--- NOTE | 2024-05-02 20:22 | HP.PCM_ITS ---
HPI - General General Date of Admission: 05/02/24 Date of Service: 05/04/24 Chief Complaint: Here for rehabilitation. HPI Narrative VAL ERICKSON, is a 79 Female who presents with followin04/28/2024 [facility] ED with fall. Stepped on scale, fell backwards, No LOC, No head injury. Right hip pain, right anterior thigh pain, right shoulder pain. Right hip pain worse with movement. CT brain negative, CT cervical spine negative, EKG okay. X-ray showed right hip fracture. 04/28/2024 Admit [facility]. Pain control, PT/OT, consult Orthopedics for right hip fracture. 04/29/2024 Trazodone helped her sleep. Family states patient has low tolerance of pain. A1c 10, Mounjaro started recently. 04/29/2024 Dr. Garcia performed right hip IM nail fixation. 04/30/2024 No acute events overnight. PT/OT TCU. 05/01/2024 Xarelto 10mg daily for DVT prophylaxis thru 06/03/2024. 05/02/2024 Admit to TCU with debility, here for rehabilitation, strengthening, prior to discharge home alone. [facility] Medical History Diabetic polyneuropathy COPD (chronic obstructive pulmonary disease) Chronic kidney disease, stage 4 (severe) Essential (primary) hypertension Debility Sleep apnea Diabetes Chronic pain Kidney stones Kidney disease DVT (deep venous thrombosis) Home Medications ?Medication ?Instructions ?Recorded ?Last Taken ?Type simvastatin 40 mg tablet 40 mg PO QHS cholesterol 03/3004/27/24 History melatonin 10 mg sublingual tablet 10 mg PO QHS Insomni a 02/20/18 04/27/24 Rx calcitriol 0.5 mcg capsule 0.5 mcg PO DAILY Supplement 08/09/21 04/27/24 History vit C 226 mg-vit E 90 mg-copper 1 cap PO DAILY Supplem ent 08/09/21 04/27/24 History 0.8 mg-zinc oxide-lutein 5 mg capsule (PreserVision Lutein) insulin glargine 100 unit/mL (3 60 unit subcut DAILY D iabetes 12/25/21 04/27/24 07:00 History mL) subcutaneous pen (Lantus Solostar U-100 Insulin) docusate sodium 100 mg capsule 100 mg PO DAILY PRN sto ol softener 03/30/22 Unknown History furosemide 20 mg tablet 20 mg PO DAILY 03/30/2204/18 History Held on 05/02/24. Instructions: Resume on 05/04/24. sennosides 8.6 mg capsule (senna) 8.6 mg PO DAILY PRN constipation 03/30/22 Unknown History fluticasone fur. 100 mcg-umeclid 1 inh inhalation AC Y SOB 05/23/22 04/27/24 History 62.5 mcg-vilant 25 mcg inhalat.powder (Trelegy Ellipta) hydralazine 25 mg tablet 25 mg PO TID Blood pressure 01/30/23 04/27/24 History gabapentin 300 mg capsule 300 mg PO Q12H pain 04/28/24 04/27/24 History lidocaine 5 % topical patch 2 patch topical DAILY PRN pain, 04/28/24 Unknown History moderate metoprolol succinate 50 mg 50 mg PO DAILY Blood pressu re 04/28/24 04/27/24 History tablet,extended release 24 hr tirzepatide 2.5 mg/0.5 mL See Rx Instructions subcut 0 04/28/24 04/26/24 History subcutaneous pen injector .COMPLEX Diabetes (Mounjaro) Held on 05/02/24. Instructions: On hold while on unit venlafaxine 75 mg capsule,extended 75 mg PO DAILY Depr ession 04/28/24 04/27/24 History release 24 hr oxycodone 5 mg tablet 5 mg PO Q4H PRN PRN Pain Sco re 05/02/24 Unknown Rx 4-10 #0 tabs rivaroxaban 10 mg tablet (Xarelto) 10 mg PO DINNER Ant icoagulant 26 05/02/24 Unknown Rx days #0 tabs Allergy/AdvReac Type Severity Reaction Status Date / Time levofloxacin (From Levaquin) Allergy Hives Verified 05/02/24 23:47 Sulfa (Sulfonamide Allergy Hives Verified 05/02/24 23:47 Antibiotics) Opioids - Morphine Analogues AdvReac Intermediate Other Verified 05/02/24 23:47 (narcotics) Family History Sister Breast cancer Other Heart disease Prostate cancer Surgical History S/P hysterectomy History of appendectomy History of cholecystectomy Social History household members: none number of children: 2 Smoking Status: Former smoker alcohol intake: never substance use type: does not use additional social history: Lives alone in a house in [facility] Constitutional Constitutional: Reports weakness; Denies chills, fever(s) or weight gain ENT HEENT: Denies headache(s), nasal congestion or nasal discharge Cardiovascular Cardiovascular: Denies chest pain or palpitations Respiratory/Chest Respiratory/Chest: Denies cough, excessive phlegm production or shortness of breath with exertion Gastrointestinal Gastrointestinal: Denies abdominal pain, nausea or vomiting Genitourinary Genitourinary: Denies dysuria Musculoskeletal Musculoskeletal: Denies joint pain or joint swelling Integumentary Integumentary: Denies rash or wounds Neurologic Neurologic: Denies focal weakness, numbness or tingling Psychiatric Psychiatric: Denies anxiety, auditory hallucinations, depression, homicidal ideation or suicidal ideation Vital Signs Vital Signs Vital Signs: 05/02/24 19:20 Temperature 97.2 F L Temperature Source Temporal Pulse Rate 103 H Respiratory Rate 18 Blood Pressure 135/79 H Blood Pressure Mean 97 Blood Pressure Source Monitor Blood Pressure Position Semi-Fowlers Blood Pressure Location Left Arm Pulse Ox 93 Oxygen Delivery Method Room Air Weight Weight: 118.6 kg Body Mass Index (BMI) 46.3 Physical Exam Const alert General Appearance: cooperative HEENT normocephalic Eyes PERRL and EOMs intact bilaterally Neck supple, no JVD and no carotid bruits Resp normal respiratory effort, normal air movement and clear to auscultation bilaterally Cardio regular rate and regular rhythm GI normal to inspection, nondistended, normoactive bowel sounds, non-tender and non-distended Extremity normal capillary refill General Extremity: Negative for edema Skin no rashes or lesions noted General Skin Exam: no breakdown Psych affect normal Appearance: appropriate Results Lab / Micro Data 05/03/24 07:08 05/03/24 07:08 Assessment & Plan Assessment/Plan (1) Debility: (2) Fracture of hip, right, closed: (3) Contusion of right shoulder: (4) Diabetes mellitus: (5) Essential (primary) hypertension: (6) HLD (hyperlipidemia): (7) Chronic kidney disease, stage 4 (severe): (8) Sleep apnea: (9) COPD (chronic obstructive pulmonary disease): (10) Diabetic polyneuropathy: (11) Depression: PLAN: Plan 79 year old female with below past medical history hospitalized for right hip fracture, right shoulder contusion, underwent right hip intramedullary nail fixation 04/29/[address] Garcia, admitted to TCU with debility, here for rehabilitation, strengthening, prior to discharge home alone. * Debility - PT/OT. * Pain - Tylenol 1000mg q8, Tramadol 50mg q6 prn pain (1-10), Lidoderm 2 patches td daily. * Bowel - senna/colace 2 tablets bid, Magnesium citrate 300mL daily prn. * Adult immunization - Administer pneumonia vaccine, covid vaccine, flu vaccine as appropriate. * DVT prophylaxis - Xarelto 10mg daily thru 06/03/2024. * Hyperlipidemia - Atorvastatin 20mg qhs. * Secondary hyperparathyroidism - Calcitriol 0.5mg daily. * COPD - Fluticasone/Salmeterol 232-14 1 puff bid, Incruse 1 puff daiyl. * Chronic HFpEF - Metoprolol succinate 50mg daily, Hydralazine 25mg tidcm, Furosemide 20mg daily. * Diabetic polyneuropathy - Gabapentin 300mg bidcm. * Diabetes Mellitus II - Glargine 60 units daily. * Insomnia - Melatonin 10mg qhs. * Macular degeneration - Healthy Eyes 1 capsule daily. 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
--- NOTE | 2024-05-02 20:45 | NURSING ---
Patient admitted to floor with order for prn Oxycodone. Son had stated he did not want her to have any narcotic due to behaviors/reactions to it. Call placed to Dr. Sánchez regarding pain medication. New order for prn Tramadol as well as scheduled Tylenol.
[2024-05-02] MEDS: traMADol 50 MG Tablet PO (21:33)
[2024-05-02] MEDS: Acetaminophen 500 MG Tablet 1000 MG PO (21:34)
[2024-05-02] MEDS: Atorvastatin Calcium 20 MG Tablet PO (21:35)
[2024-05-02] MEDS: MELATONIN 10 MG TABLET PO (21:35)
[2024-05-02] MEDS: Fluticasone/Salmeterol 232-14 Inhaler 1 PUFF INHALATION (21:35)
[2024-05-02] MEDS: Senna/Docusate Sodium 1 Tablet 2 TABLET PO (21:38)
--- NOTE | 2024-05-02 21:41 | NURSING ---
Spoke with son, Hardik, regarding pain medication and new order for Tramadol. He stated that they had spoken to him regarding Tramadol on previous unit. He verbalized agreement to try Tramadol, but due to her reaction/behaviors to stronger narcotics, does not want her to have anything other than Tylenol otherwise, due to her reactions as well as poor kidney function. Informed him that she will be monitored for any behaviors when taking Tramadol and adjust things accordingly. Son verbalized understanding.
[2024-05-02 21:47] LABS: Bedside Glucose 150 mg/dL (74-106)
--- NOTE | 2024-05-02 23:02 | CASEMGMT ---
Social Work: Date of referral: 05/02/24 Reason for referral: Mental Health; Suicide Risk Assessment needed. Referred by: Floor Nurse Social Work Consult requested due to patient being found with a hospital cord around her neck by a nurse on 05/01/24. Patient was alone in her room and provided consent to social worker health services visit/assessment. It was reported to social worker health services by the nurse that on the date of the incident, patient denied any suicidal ideation or intent and was not wanting to be alone at the time she called for the nurse. It was determined at that time that patient did not pose a threat to self. Nursing staff were notified by patient's family that patient cannot be given narcotics or patient will act like that. Since that time, patient's pain has been successfully treated/managed without the use of heavy narcotics and patient's behavior has since been noted to be unremarkable. take off worker interviewed/assessed patient alone and patient continued to deny any previous or current suicidal ideation or intent. Patient stated in reference to the cord, she was lying in bed with the over the bed table being piled high with a lot of things and patient stated the cord was in her way so patient put it on her chest and around her neck just to get it out of her way. Patient stated she was trying to call the nurse at the time because she needed something. Patient denied any previous suicide attempts, denied any having any thoughts of wanting to kill herself, denied having any thoughts of wanting to , denied any suicidal behavior, denied any previously aborted or interrupted suicidal behavior or attempts, and denied any dangerous acts that could have resulted in injury or . Patient stated that years and years ago she was having severe pain with her medical conditions and was told by her son that while sleeping, she stated I wish I was . Patient stated she had no memory of this and was not hospitalized due to this. Patient stated she has children, grandchildren, great-grandchildren and great, great grandchildren she wants to live for and would never do that. Patient had a tablet that she pulled up numerous pictures of her family. Patient presented with a bright affect when talking about her family, was verbally engaged and cooperative throughout the assessment. take off worker consulted with supervisor carbon electrodes and it was agreed that at this time, patient does not appear to be suicidal or at imminent risk of harm. No other needs/issues identified at this time. It should be noted that this assessment took place when patient was in MS310, date: 05/02/24, end time: 17:40. take off worker unable to document this in that chart. 8 Marly Bach, DEPENDENCY PROGRAM DIRECTOR, SEMI DRIVER
[2024-05-03] MEDS: traMADol 50 MG Tablet PO ×2 (03:41→09:50)
[2024-05-03] MEDS: Acetaminophen 500 MG Tablet 1000 MG PO ×3 (05:28→20:49)
[2024-05-03 06:20] LABS: Bedside Glucose 167 mg/dL (74-106)
[2024-05-03 07:46] LABS: Absolute Lymphocyte Count 1.71 X10^3/uL (0.83-4.51); Absolute Neutrophil Count 9.5 X10^3/uL (2.0-7.7); Basophil# 0.07 X10^3/uL; Basophil% 0.5 % (0-1); Eosinophil# 0.21 X10^3/uL; Eosinophils% 1.6 % (0-5); Hematocrit 26.6 % (37-47); Hemoglobin 8.6 g/dL (12.0-15.0); Lymphocyte # 1.71 X10^3/ul (0.83-4.51); Lymphocyte % 13.3 % (19-41); Mean Corp Hgb Conc 32.3 g/dL (32-36); Mean Corpuscular Hgb 31.9 pg (27.0-32.0); Mean Corpuscular Volume 98.5 fL (81-99); Mean Platelet Vol. 9.5 fl (6.2-12.0); Monocyte# 1.12 X10^3/uL; Monocyte% 8.7 % (0-10); NRBC Flagged by Analyzer 0 % (0-5); Neutrophil # 9.51 X10^3/uL (2.7-7.7); Neutrophil % 74.2 % (47-70); Platelet Count 257 K/mm3 (150-450); RBC Distribution Width CV 14.1 % (11.6-14.6); RBC Distribution Width SD 49.9 fl (35.1-43.9); White Blood Count 12.8 K/mm3 (4.4-11.0)
[2024-05-03 08:09] LABS: Anion Gap 9 (5-15); BUN 47 mg/dL (7-18); BUN/Creat Ratio 23.6 RATIO (10-20); Calcium,Total 9.5 mg/dL (8.5-10.1); Chloride 97 mmol/L (98-107); Creatinine, Serum 1.99 mg/dL (0.55-1.02); EST Glomerular Filtration Rate 26 mL/min (>60); Est Glom Filt Rate - Afr Amer 31 mL/min (>60); Estimated Creatinine Clearance 27.59 ml/min; Glucose 206 mg/dL (74-106); Potassium 4.9 mmol/L (3.5-5.1); Sodium Level 131 mmol/L (136-145)
[2024-05-03] MEDS: Venlafaxine XR 75 MG Capsule PO (09:50)
[2024-05-03] MEDS: Multivitamin (Healthy Eyes) Capsule 1 CAP PO (09:50)
[2024-05-03] MEDS: Gabapentin 300 MG Capsule PO ×2 (09:51→17:33)
[2024-05-03 09:52] VITALS: BP 109/57; PULSE 102
[2024-05-03] MEDS: Calcitriol 0.25 MCG Capsule 0.5 MCG PO (09:52)
[2024-05-03] MEDS: Umeclidinium Bromide Inhaler 1 PUFF INHALATION (09:52)
[2024-05-03] MEDS: hydrALAZINE 25 MG Tablet PO ×3 (09:52→17:34)
[2024-05-03] MEDS: Senna/Docusate Sodium 1 Tablet 2 TABLET PO (09:52)
[2024-05-03] MEDS: Metoprolol(XL)Succ 50 MG Tablet PO (09:52)
[2024-05-03] MEDS: Fluticasone/Salmeterol 232-14 Inhaler 1 PUFF INHALATION ×2 (09:53→20:48)
[2024-05-03] MEDS: Insulin Glargine-YFGN 100 UNIT/ML Pen 60 UNIT SC (09:53)
[2024-05-03] MEDS: Tuberculin,Purif.prot.deriv. 50 TU/ML Vial 0.1 ML ID (10:06)
[2024-05-03 11:34] VITALS: BP 109/57; PULSE 102; RESP 18; TEMP 36.5; O2SAT 95
[2024-05-03 11:42] LABS: Bedside Glucose 277 mg/dL (74-106)
--- NOTE | 2024-05-03 13:06 | NURSING ---
This nurse spoke to pt. Son/POA Hardik. Hardik was informed on his mother's current level of consciousness and confusion. Hardik stated that his mother gets like this anytime she takes any pain medication stronger than Tylenol. Hardik asked that we no longer give pt. anymore narcotic pain medication. Hardik also stated he would be in to see his mother sometime this week and would be able to sign admission paperwork when he comes in.
[2024-05-03 13:33] VITALS: BP 110/58; PULSE 101
[2024-05-03] MEDS: Magnesium Citrate 300 ML PO (13:34)
[2024-05-03 16:29] LABS: Bedside Glucose 281 mg/dL (74-106)
[2024-05-03] MEDS: Rivaroxaban 10 MG Tablet PO (17:33)
[2024-05-03 17:34] VITALS: BP 135/76; PULSE 97
--- NOTE | 2024-05-03 20:23 | NURSING ---
Bariatric bed ordered for patient. To be delivered Thursday 05/04.
[2024-05-03] MEDS: MELATONIN 10 MG TABLET PO (20:49)
[2024-05-03] MEDS: Atorvastatin Calcium 20 MG Tablet PO (20:50)
[2024-05-03 22:19] LABS: Bedside Glucose 274 mg/dL (74-106)
[2024-05-04] MEDS: Acetaminophen 500 MG Tablet 1000 MG PO ×3 (05:57→20:44)
[2024-05-04 06:38] LABS: Bedside Glucose 197 mg/dL (74-106)
[2024-05-04 08:33] LABS: Anion Gap 7 (5-15); BUN 52 mg/dL (7-18); BUN/Creat Ratio 26.8 RATIO (10-20); Calcium,Total 9.1 mg/dL (8.5-10.1); Chloride 96 mmol/L (98-107); Creatinine, Serum 1.94 mg/dL (0.55-1.02); EST Glomerular Filtration Rate 26 mL/min (>60); Est Glom Filt Rate - Afr Amer 32 mL/min (>60); Glucose 194 mg/dL (74-106); Sodium Level 128 mmol/L (136-145)
--- NOTE | 2024-05-04 09:11 | CASEMGMT ---
Social Work SW received verbal hand-off from FAMILY PRACTICE NURSE PRACTITIONER and reviewed pt's chart. SW left VM with son, Hardik AMOR, to obtain more history and discuss pt's treatment plan. Eli Alexis DIRECTOR [employer] STRINGER
[2024-05-04 09:50] VITALS: BP 120/74; PULSE 101
[2024-05-04] MEDS: Gabapentin 300 MG Capsule PO ×2 (09:50→16:55)
[2024-05-04] MEDS: hydrALAZINE 25 MG Tablet PO ×3 (09:50→16:55)
[2024-05-04 09:51] VITALS: PULSE 101
[2024-05-04] MEDS: Umeclidinium Bromide Inhaler 1 PUFF INHALATION (09:51)
[2024-05-04] MEDS: Insulin Glargine-YFGN 100 UNIT/ML Pen 60 UNIT SC (09:51)
[2024-05-04] MEDS: Multivitamin (Healthy Eyes) Capsule 1 CAP PO (09:51)
[2024-05-04] MEDS: Fluticasone/Salmeterol 232-14 Inhaler 1 PUFF INHALATION ×2 (09:51→20:42)
[2024-05-04] MEDS: Calcitriol 0.25 MCG Capsule 0.5 MCG PO (09:51)
[2024-05-04] MEDS: Venlafaxine XR 75 MG Capsule PO (09:51)
[2024-05-04] MEDS: Metoprolol(XL)Succ 50 MG Tablet PO (09:51)
[2024-05-04] MEDS: Senna/Docusate Sodium 1 Tablet 2 TABLET PO (09:51)
[2024-05-04 10:17] VITALS: BP 120/74; PULSE 101; RESP 18; TEMP 36.3; O2SAT 97
[2024-05-04 12:07] VITALS: BP 106/58; PULSE 97
[2024-05-04] MEDS: Furosemide 20 MG Tablet PO (12:07)
[2024-05-04 12:18] LABS: Bedside Glucose 258 mg/dL (74-106)
[2024-05-04] MEDS: Lidocaine 5% Patch 2 PATCH TOPICAL (12:19)
[2024-05-04 12:35] LABS: Bedside Glucose 258 mg/dL (74-106)
--- NOTE | 2024-05-04 13:55 | NURSING ---
Supply Chain Project Manager Note; Activity Asset: Complete
--- NOTE | 2024-05-04 14:37 | PHA.CONS_ITS ---
TCU RX Drug Regimen Review Subjective/Objective Subjective/Objective Subjective: 79 YOF admitted to TCU on 05/02 s/p hospitalization at [facility] for a fall. Patient underwent a right hip IM nail fixation while admitted. Admitted to TCU for strengthening and rehabilitation prior to discharge home where she resides alone. Objective: Allergies levofloxacin (From Levaquin) Allergy (Verified 05/02/24 23:47) Hives Sulfa (Sulfonamide Antibiotics) Allergy (Verified 05/02/24 23:47) Hives Opioids - Morphine Analogues (narcotics) Adverse Reaction (Intermediate, Verified 05/02/24 23:47) Other Confusion, Behaviors Current Medications Generic Name Dose Route Start Last Admin Trade Name Freq PRN Reason Stop Dose Admin Acetaminophen 1,000 mg 05/02/24 22:00 05/04/24 13:36 Acetaminophen 500 Mg Tablet PO 1,000 mg Q8 FATOU Administration Atorvastatin Calcium 20 mg 05/02/24 22:00 05/03/24 20:50 Atorvastatin Calcium 20 Mg Tablet PO 20 mg QHS FATOU Administration Calcitriol 0.5 mcg 05/03/24 10:00 05/04/24 09:51 Calcitriol 0.25 Mcg Capsule PO 0.5 mcg DAILY FATOU Administration Furosemide 20 mg 05/04/24 10:00 05/04/24 12:07 Furosemide 20 Mg Tablet PO 20 mg DAILY FATOU Administration Protocol Gabapentin 300 mg 05/03/24 08:00 05/04/24 09:50 Gabapentin 300 Mg Capsule PO 300 mg BIDCM FATOU Administration Hydralazine HCl 25 mg 05/03/24 07:45 05/04/24 12:07 Hydralazine 25 Mg Tablet PO 25 mg TIDCM FATOU Administration Protocol Sodium Chloride 100 mls @ 15 mls/hr 05/02/24 20:13 IV .Q6H40M PRN Additional IVPB Infusion Sodium Chloride 100 mls @ 15 mls/hr 05/02/24 20:13 IV .Q6H40M PRN Saline Flush Insulin Glargine 60 unit 05/03/24 10:00 05/04/24 09:51 Insulin Glargine-Yfgn 100 Unit/Ml Pen SC 60 unit DAILY FATOU Administration Lidocaine 2 patch 05/02/24 19:54 05/04/24 12:19 Lidocaine 5% Patch TOPICAL 2 patch DAILY PRN Administration pain, moderate 4-10 Protocol Magnesium Citrate 300 ml 05/02/24 19:51 05/03/24 13:34 Magnesium Citrate 300 Ml PO 300 ml X1 PRN Administration Constipation Melatonin 10 mg 05/02/24 22:00 05/03/24 20:49 Melatonin 10 Mg Tablet PO 10 mg QHS FATOU Administration Metoprolol Succinate 50 mg 05/03/24 10:00 05/04/24 09:51 Metoprolol(Xl)Succ 50 Mg Tablet PO 50 mg DAILY FATOU Administration Protocol Multivitamins/Minerals 1 cap 05/03/24 10:00 05/04/24 09:51 Multivitamin (Healthy Eyes) Capsule PO 1 cap DAILY FATOU Administration Rivaroxaban 10 mg 05/03/24 17:00 05/03/24 17:33 Rivaroxaban 10 Mg Tablet PO 06/03/24 23:59 10 mg DINNER FATOU Administration Fluticasone/Salmeterol 1 puff 05/02/24 22:00 05/04/24 09:51 Fluticasone/Salmeterol 232-14 Inhaler INHALATION 1 puff Q12 FATOU Administration Senna/Docusate Sodium 2 tablet 05/02/24 22:00 05/04/24 09:51 Senna/Docusate Sodium 1 Tablet PO 2 tablet BID FATOU Administration Sodium Chloride 10 - 40 ml 05/02/24 20:13 0.9% Saline Lock 10 Ml Syringe IV UD PRN SALINE FLUSH Tuberculin PPD 0.1 ml 05/10/24 10:00 Tuberculin,Purif.Prot.Deriv. 50 Tu/Ml Vial ID 05/10/24 10:01 X1 ONE Umeclidinium [place] 1 puff 05/03/24 10:00 05/04/24 09:51 Umeclidinium [place] Inhaler INHALATION 1 puff DAILY FATOU Administration Venlafaxine HCl 150 mg 05/05/24 10:00 Venlafaxine Xr 150 Mg Capsule PO DAILY [facility] Problem List Diabetic polyneuropathy (Acute) COPD (chronic obstructive pulmonary disease) (Chronic) Chronic kidney disease, stage 4 (severe) (Chronic) Essential (primary) hypertension (Acute) Debility (Acute) Contusion of right shoulder (Acute) Fracture of hip, right, closed (Acute) HLD (hyperlipidemia) (Chronic) Sleep apnea (Chronic) Diabetes mellitus (Chronic) Depression (Acute) Vital Signs Temp Pulse Resp BP Pulse Ox O2 Del Method 97.3 F L 97 18 106/58 L 97 Room Air 05/04/24 10:17 05/04/24 12:07 05/04/24 10:17 05/04/24 12:07 05/04/24 10:17 05/04/24 10:17 Oxygen Delivery Method Room Air Weight: 118.6 kg Body Mass Index (BMI) 46.3 Sodium 128 mmol/L (136-145) L 05/04/24 07:15 Potassium 5.0 mmol/L (3.5-5.1) 05/04/24 07:15 Chloride 96 mmol/L (98-107) L 05/04/24 07:15 Carbon Dioxide 25.0 mmol/L (21.0-32.0) 05/04/24 07:15 Anion Gap 7 (5-15) 05/04/24 07:15 BUN 52 mg/dL (7-18) H 05/04/24 07:15 Creatinine 1.94 mg/dL (0.55-1.02) H 05/04/24 07:15 Est GFR (MDRD) Af Amer 32 mL/min (>60) L 05/04/24 07:15 Est GFR (MDRD) Non-Af 26 mL/min (>60) L 05/04/24 07:15 BUN/Creatinine Ratio 26.8 RATIO (10-20) H 05/04/24 07:15 Glucose 194 mg/dL (74-106) H 05/04/24 07:15 Assessment/Plan: 1. Pain: Tylenol 1000mg PO Q8h, Lidocaine patch 2 patches topically daily PRN. Please continue to monitor for S/S increased/decreased pain, PRN medication usage, local skin irritation/redness. - The patient has used 1 application of lidocaine patches for pain rated 8/10. 2. 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 Please continue to monitor for S/s blood clot formation, S/S bleeding/bruising, H/H (hgb 8.6, hct 26.6 on 05/03). 3. CHF/ HLD: Lipitor 20mg PO QHS, Lasix 20mg PO daily, Hydralazine 25mg PO TID, Toprol XL 50mg PO Daily. Please continue to monitor BP (last 106/58), HR (last 97 BPM), lipid panel annually or sooner as clinically indicated ( last panel done 09/2023 WNL), I/O, potassium (K= 5 on 05/03), renal function (SCr 1.94 on 05/03), headache, dizziness. 4. Type II Diabetes with neuropathy: Insulin Glargine 60 units SC Daily, Gabapentin 300mg PO BID. Please continue to monitor for S/S hypoglycemia, BG, A1c (10% 04/29/24), injection site reactions, Renal function (CrCl 28 mL/min on 05/03). Please consider decreasing gabapentin to once daily dosing based on an estimated CrCl <30, thank you. 5. COPD: Airduo inhaler BID, Incruse inhaler daily. Please continue to monitor HR, aggitation, S/S thrush, S/S exacerbation of COPD. 6. Hyperparathyroidism: Calcitriol 0.5mcg PO Daily. 7. Insomnia: melatonin 10mg PO QHS. Please continue to monitor for medication effectiveness, oversedation with use. Please consider administering medication at least 2 hours prior to desired bedtime for maximum response. 8. Macular Degeneration: Healthy Eyes Multivitamin 1 tab PO Daily. 9. Bowel: Senna/Docusate 2 tab PO BID, Magnesium Citrate 300mL PO Daily PRN. Please continue to monitor for increased/decreased constipation and/or diarrhea. - The patient has had 2 documented bowel movements for today, 05/04/24. Assessment/Plan for indications treated with psychotropic medications: 1. Depression: Effexor XR 75mg PO daily. Please consider a GDR by 10/2024 if clinically indicated, thank you. Medical chart and medication regimen reviewed. The following medication irregularities or issues were identified: 1. Diabetic Neuropathy: Gabapentin 300mg PO BID. Patient's estimated CrCl is 28mL/min on 05/03/24. Since CrCl is less than 30, please consider decreasing frequency of medication to once daily based on recommended renal dosing adjustements, thank you. 2. Depression: Effexor XR 75mg PO daily. Please consider a GDR by 10/2024 if clinically indicated, thank you. Date Date of Note: 05/04/24
--- NOTE | 2024-05-04 15:51 | CHAPLAIN ---
Type of Pastoral Visit _x__ Initial Visit ___ Follow-up Visit ___ On-call Visit ___ General Patient Visit ___ Spiritual Assessment ___ Family Conference ___ Bereavement ___ Rapid Response ___ Code Blue ___ Other (describe below) Pastoral Care Referral From _x__ Patient ___ Family ___ Nurse ___ Physician ___ Timber Cruiser ___ Human Resources Communications Manager ___ Other (describe below) Sacrament/Intervention _x__ Active listening ___ Anointing ___ Buddhism ___ Bereavement ___ Communion ___ Agustina exploration ___ ___ Life review _x__ Prayer ___ Reconciliation ___ Sacrament of Sick _x__ Supportive presence ___ Wedding ___ Other (describe below) Pastoral Comments patient is awake but admits to having pain and having 'foggy' mind; pt does welcome a visit and prayer but shows difficulty in keeping focused or on explaining things; prayer given and patient appears to go into sleep
[2024-05-04] MEDS: Rivaroxaban 10 MG Tablet PO (16:54)
[2024-05-04 16:55] VITALS: BP 130/70; PULSE 96
[2024-05-04 16:56] LABS: Bedside Glucose 232 mg/dL (74-106)
[2024-05-04 16:58] VITALS: BP 130/70; PULSE 96
--- NOTE | 2024-05-04 17:20 | CASEMGMT ---
Social Work SW notified by MACHINE FINISHER of events since pt admission. SW reviewed chart. Pt had SI on MS3 prior to admission, though, it was deemed behavioral and cause of narcotics. Pt is currently a lulu x2-3 assist and attention seeking with floor staff via call-light, per MACHINE FINISHER account. - SW phoned son, Hardik AMOR. Introduced self and role. Requested history of pt and son's perspective of pt's baseline vs current mental and physical LOF. Son provided extensive history, realistic to pt's current functioning and open in disclosing pt's personality traits. Son confirmed history in chart that pt's SI tend to be pain related and narcotic related. Pt is A&Ox4 at baseline. Son recounts incident about 2-3 years ago (could not recall exact time) when pt was having severe back pain, was taking pain medication to assist, and it was not relieving the pain. Pt took all the medications she had left to end it all and son brought her to the ED, which resulted in pt receiving an injection, per son. SW inquired about pt's baseline. Son explained pt is in pain and behavioral without the pain medication. Pt is noncompliant, self-limiting, has negative energy and was almost kicked out of [facility] for not participating in therapy, but once she was threatened, she started improving and was able to get home. Son continued, sharing pt is a chronic liar, has childlike behaviors, is jealous and has people who are 10 years older than her at her apt complex doing things for her, like bringing her the mail and taking out her trash. Son expressed his frustration, struggling with how to proceed with pt and is at his jeimy's end. SW appreciative of history, insight and son's perspective. Empathized with son's frustrations. SW discussed pt's mental health, noting she is on Effexor. Son confirmed that pt's PCP started pt on medication and increased it in September 2023 when she was in [place], but may need another increase given everything going on. SW inquired if pt has been involved with any psych services or counseling. Son denied, though acknowledged the benefit it could be to pt. SW explained TCU, with it being a short-term rehab facility, focusing on therapy; it does not have outside psychology or psychiatry services. SW offered pt's behaviors, being attention seeking and being depressed, could have a significant impact on pt's participation in therapy, citing pt is currently a lulu lift needing 2-3 person assist. Son expressed understanding and he has considered the appropriateness of pt being in TCU, as he had originally chosen for pt to go to [facility], but then pt wanted to come to TCU. Son explained that this same thing happened at [place], and I will talk to her about participating. Maybe if she gets that ultimatum again, she will try harder knowing she will need to go to another facility. MARI offered despite participation, pt may not improve to a safe level to DC home, and may need to DC to another SNF as well, and discussed the impact of transitions on patients. Son expressed understanding. Son stated he will speak with pt during his visit today. SW to also speak with pt today, but cautioned pt may continue to be appropriate for TCU and this worker would assist in transferring to another SNF. Son agreed. MARI summarized conversation with son and confirmed per the MAR, narcotics are now listed as an allergy for the pt; she has ordered PRN lidocaine patch, scheduled Q8 Tylenol, and Tramadol PRN. Son requested to have Tramadol discontinued to eliminated risk of giving pt medication. MARI agreed and will speak with Dr. GUERRA to also speak with about increase to Effexor or adding an additional anti-depressant. Son appreciative. - MARI sent secure Backline to Dr. Sánchez - agreed to requests. MACHINE FINISHER aware. - MARI presented to pt's room. Son, Hardik, and present. Introduced self and role. Son stated he spoke to the pt about participation in therapy and possible need to transfer to SNF. Pt confirmed. Son and were ending their visit and allowed this worker to speak 1:1 with pt. Pt sitting up in recliner, using her menu to fan herself. SW offered to adjust thermostat. Pt declined stating it is not the temperature, it is the agitation of the tape from the catheter [though no catheter in place]. Pt agreeable to speak to this worker. This worker began with assessment and pt put head back into recliner and closed her eyes, though answered questions. Between every several questions, pt interrupted this worker with a request or comment. First, pt was attempting to reach for her water pitcher, stating her lips were so dry, they were almost bleeding earlier. The water pitcher was within arms reach next to her left arm. Pt was attempting to reach the water with her right arm, though not using full extension. SW suggested using left arm, the closer arm, to reach her water. Pt switched arms but again, was not extending arm to reach the water. SW offered to give water to pt; pt accepted. SW continued with several more assessment questions, when pt stated she needed to urinate. SW offered to exit room for staff to assist her. Pt stated, no they are going to need to just change me. SW directed for pt to press call-light to ask for assistance without needing to use brief. Pt did not reach for call-light and replied, too late. SW again offered to get staff assistance to change pt. Pt denied. SW continued with questions and began exploring history with mental health. Pt admitted she has anxiety, but not depression. SW inquired about use of Effexor. Pt stated those are my anxiety tablets. SW attempted to explore pt's understanding of depression, when pt interrupted with sporadic comment, It's just so hard to sit still; I hurt so bad. I don't know why people expect me not to hurt when I have a khurram in my side. SW observed no agitation, pt was remaining still in her chair, without non-verbal signs of pain. SW provided supportive listening, allowing time for pt to express feelings. SW inquired about how pt was feeling since admission. Pt explained she could not recall the weekend's events as I was so high on those meds; I don't remember anything. SW inquired how pt reacts when on narcotics. Pt replied that she cannot remember anything; getting confused. SW probed about thoughts of harming self or others. Pt denied. SW questioned of any history of SI, attempts with the use of pills, guns, any interrupted attempts; pt denied. Though, shared, well I guess there was this one time maybe 3 years ago [could not recall exact timeframe when questioned] I guess I said to my sister [who was home visiting with her at the time] that I didn't want to live. SW asked what happened next. Pt replied, I must have went to sleep. Pt could not recall any further details, and interrupted herself with a request for this worker to raise her legs in the recliner. SW assisted until pt was comfortable. SW began administering PHQ-9. Between each question, pt interrupted with an additional comment, story, or request, such as removing her sock, placing the polar care on her hip, getting her a blanket. Pt had difficulty staying on task. At times pt was expansive with positive responses to PHQ-9. Other times, pt would extend thoughts on tangents not related to the question at hand. SW allowed time for pt to finish though, and as appropriate, SW redirected to completed the PHQ-9. Pt showed enjoyment to 1:1 interaction with this worker. SW offered ongoing supportive visits as pt needed and will continue to follow for DC planning. Total time spent: 90 minutes Eli MOLINAW
[2024-05-04 18:28] LABS: Mucous, Urine 0 SEEN /hpf (<or=2+); White Blood Cells 0 SEEN /hpf (0-5)
[2024-05-04 18:44] LABS: Color, Urine Yellow (Yellow); Glucose, Dipstick 100 mg/dl (Normal); Ketone-Dipstick Negative (Negative); Leukocyte Esterase-Dipstick Negative /ul (Negative); Nitrite-Dipstick Negative (Negative); Occult Blood-Urine Negative /ul (Negative); Protein-Dipstick 15 mg/dl (Negative); Urine Bilirubin Dipstick Negative (Negative); Urine Clarity Clear (Clear); Urine Urobilinogen Normal (Normal)
[2024-05-04 19:10] LABS: Squamous Epithelial Cells - UA 0-5 SEEN /hpf (5-10)
[2024-05-04 19:11] LABS: Red Blood Cells-Urine 0-5 SEEN /hpf (0-5)
[2024-05-04 19:12] LABS: Bacteria 1+ /hpf (None Seen)
[2024-05-04] MEDS: MELATONIN 10 MG TABLET PO (20:43)
[2024-05-04] MEDS: Atorvastatin Calcium 20 MG Tablet PO (20:43)
[2024-05-04 21:31] LABS: Bedside Glucose 291 mg/dL (74-106)
[2024-05-05] VITALS (7 sets, daily range): BP systolic 123–125; BP diastolic 71–72; PULSE 100–107; RESP 16–18; TEMP 36.1; O2SAT 97; BMI 45.9
[2024-05-05] MEDS: Acetaminophen 500 MG Tablet 1000 MG PO ×3 (05:41→16:50)
[2024-05-05] MEDS: Lidocaine 5% Patch 2 PATCH TOPICAL (05:42)
[2024-05-05 06:43] LABS: Bedside Glucose 218 mg/dL (74-106)
--- NOTE | 2024-05-05 07:02 | NURSING ---
Patient c/o severe pain at times to right hip despite current tylenol order. Written communication left for Dr. Sánchez regarding patient c/o pain.
[2024-05-05] MEDS: hydrALAZINE 25 MG Tablet PO ×3 (08:57→16:52)
[2024-05-05] MEDS: Gabapentin 300 MG Capsule PO ×2 (08:57→16:50)
[2024-05-05] MEDS: Senna/Docusate Sodium 1 Tablet 2 TABLET PO ×2 (08:58→21:41)
[2024-05-05] MEDS: Fluticasone/Salmeterol 232-14 Inhaler 1 PUFF INHALATION ×2 (08:58→21:50)
[2024-05-05] MEDS: Metoprolol(XL)Succ 50 MG Tablet PO (08:58)
[2024-05-05] MEDS: Venlafaxine XR 150 MG Capsule PO (08:58)
[2024-05-05] MEDS: Calcitriol 0.25 MCG Capsule 0.5 MCG PO (08:58)
[2024-05-05] MEDS: Multivitamin (Healthy Eyes) Capsule 1 CAP PO (08:58)
[2024-05-05] MEDS: Umeclidinium Bromide Inhaler 1 PUFF INHALATION (08:58)
[2024-05-05] MEDS: Furosemide 20 MG Tablet PO (08:58)
[2024-05-05] MEDS: Insulin Glargine-YFGN 100 UNIT/ML Pen 65 UNIT SC (08:59)
[2024-05-05] MEDS: Baclofen 10 MG Tablet PO ×2 (09:01→21:44)
[2024-05-05 11:37] LABS: Bedside Glucose 290 mg/dL (74-106)
[2024-05-05] MEDS: 0.9% Saline Lock 10 ML Syringe IV (13:50)
[2024-05-05 16:25] LABS: Bedside Glucose 202 mg/dL (74-106)
[2024-05-05] MEDS: Rivaroxaban 10 MG Tablet PO (16:51)
--- NOTE | 2024-05-05 17:16 | NURSING ---
Addendum entered by Daisy Fragoso 05/05/24 17:54: xray ordered by dr munoz Original Note: pt c/o rt hip pain, worse in bed, pt assisted via lulu to recliner chair. pt states that feels much better pt voided on bedpan before transferring pt from bed to chair. pt requesting to have xray of hip, reported that when pt arrived to unit that pt was slid from old bed to new bed and felt something sharp hurt her hip. message left with dr munoz. dressings intact to hip, some with old shadow drlion. call light in reach.
--- NOTE | 2024-05-05 17:37 | RAD_ITS ---
PROCEDURE: PELVIS 1 OR 2 VIEWS REASON FOR EXAM: Pain TECHNIQUE: 2 view(s) of the pelvis. COMPARISON: 04/29/2024 FINDINGS: Proximal intramedullary khurram and pin transfixing a right comminuted intertrochanteric fracture. Normal alignment at the hips and sacroiliac joints. Mild joint space narrowing in the bilateral hips. Moderate degenerative changes in the lower lumbar spine. Soft tissues are unremarkable. RAD/Pelvis 1 or 2 Views IMPRESSION: 1. Hiio-lx-dlxkmney degenerative changes in the pelvis with no acute osseous a bnormality. 2. Status post ORIF of comminuted right intertrochanteric fracture. No hardwa re failure noted proximally Reading Location: [facility]
--- NOTE | 2024-05-05 17:37 | RAD_ITS ---
PROCEDURE: FEMUR MIN 2 VIEWS REASON FOR EXAM: Pain TECHNIQUE: 3 view(s) of right femur COMPARISON: 04/28/2024 FINDINGS: RIGHT FEMUR: Interval placement of intramedullary khurram and pin for a comminuted right intertrochanteric fracture. Moderate degenerative changes are noted in the left hip joint and knee. Anatomic alignment. Tesfaye overlie the lateral soft tissues. RAD/Femur Min 2 Views IMPRESSION: Status post intramedullary khurram and pin placement for comminuted right intertroc hanteric fracture. There is no acute abnormality or hardware failure. Normal anatomic alignment. Reading Location: [facility]
--- NOTE | 2024-05-05 17:52 | NURSING ---
dr munoz notified of pt c/o burning w/urination and frequency. urine culture results, new order for cefdinir.
[2024-05-05] MEDS: Cefdinir 300 MG Capsule PO (18:01)
[2024-05-05] MEDS: MELATONIN 10 MG TABLET PO (21:41)
[2024-05-05] MEDS: Atorvastatin Calcium 20 MG Tablet PO (21:41)
[2024-05-05 22:06] LABS: Bedside Glucose 210 mg/dL (74-106)
[2024-05-06] MEDS: Acetaminophen 500 MG Tablet 1000 MG PO ×4 (00:44→18:14)
--- NOTE | 2024-05-06 04:43 | NURSING ---
pt yelling out for help and found to be naked in the recliner. pt had blankets,pillows, and gown on the floor. pt reports that she was too hot. 02 was also laying on the floor. pt was acting confused, stating that she didn't know what was going on but needed to use the toilet. pt assisted to the bsc with 2 assists and stood and pivoted to the bsc. pt returned to the chair after voiding, gown, 02, and polar care were placed on pt. pt was encouraged to put her feet up but refused when offered,, moderate amt of edema is noted in her feet and ankles.
[2024-05-06 05:13] LABS: Bedside Glucose 185 mg/dL (74-106)
--- NOTE | 2024-05-06 06:50 | NURSING ---
Patient continues to complain of severe right hip pain at times and anxiety, frequently yells out, moaning/guarding/facial grimacing observed, reports pain to right hip sx site help me help me, I am in pain, restless frequently despite pharmacologic and non-pharmacologic interventions. Painful despite pharmacologic and non-pharmacologic interventions. Patient rep Hardik contacted at this time to discuss patient observed anxiety and reports of severe pain. Pt. rep/Son Hardik expresses he was reluctant for patient to have Strong pain meds because she won't work with therapy. Son educated that pain is common after surgery and may limit patient participation with therapy if pain is not managed.Hardik notified that patient is complaining of severe pain to right hip at times. Hardik expresses he does not want patient to be in pain and is ok with patient being ordered Tramadol but not Oxy and would like for patient to be encouraged not to use tramadol unless pain is severe. Hardik states he was not aware patients could experience severe pain after surgery and assumed the surgery would resolve the pain. Anxiety and restlessness also discussed with Hardik at this time, Hardik states that confusion is not new for patient and does have some confusion at home. Hardik expresses that patient anxiety and behaviors has also been and ongoing issue at home and he would like for patient to get help for that, rep Hardik states he would like for patient consult for therapist and would be ok for patient to be prescribed an anti-anxiety medication and agrees to anti-anxiety medication such as Ativan if Dr. Sánchez would order. Hardik explained that he believes patient mental health is likely the cause of patient's history of self harm statements and behaviors and would like for mental health to be addressed while patient is on TCU and states he does not believe Effexor is effective for patient and would like Something more to help. Hardik states he recognizes patient's behaviors and intermittent confusions continues despite no opioids ordered at this time and is mostly concerned with patient not participating with therapy. Hardik states he will seek an update of any new orders from Dr. Sánchez later this date during a meeting regarding patient. Hardik encouraged to contact the TCU/patient nurse at any time for patient updates and notified that Dr. Sánchez would be updated regarding conversation. Hardik expresses thanks. Written communication left for Dr. Sánchez regarding conversation with patient rep Hardik, patient's expressions of need related to anxiety and continues complaint of severe pain to right hip despite current pharmacologic and non-pharmacologic interventions.
[2024-05-06] MEDS: Baclofen 10 MG Tablet PO (09:25)
--- NOTE | 2024-05-06 09:26 | CASEMGMT ---
Social Work IDT met with patient and two sons for care plan meeting. Discussed patient's progress in PT/OT/SN. Educated to Medicare benefit. Provided family with written communication on insurance process and copay coverage during stay. Therapy reports pt participating thus far, but is a lulu x2-3 assist. Despite participation, given pt lived at home alone, recommending pt DC to a SNF for ongoing care. Sons in agreement. Pt expressed home was getting too hard and agreed to SNF for LTC. Son's expressed ongoing frustration with pt's behaviors with pain and self-limitations at baseline. SW provided active listening and validated frustrations. Offered LTP may be the most beneficial for pt so she has less to manage at home and sons also don't need to worry about those extra tasks, and get frustrated, then return to being a son. SW inquired about SNF preferences. Sons stated [facility]. SW to make referrals closer to DC. SW to remain available and follow for DC planning. Eli Alexis CHILD CARE COORDINATOR AEROBICS TEACHER
[2024-05-06 09:56] VITALS: BP 117/70; PULSE 104; RESP 18; TEMP 36.4; O2SAT 92
[2024-05-06 09:59] VITALS: PULSE 104
[2024-05-06] MEDS: hydrALAZINE 25 MG Tablet PO ×3 (09:59→18:09)
[2024-05-06] MEDS: Venlafaxine XR 150 MG Capsule PO (09:59)
[2024-05-06] MEDS: Gabapentin 300 MG Capsule PO ×2 (09:59→18:08)
[2024-05-06 10:00] VITALS: PULSE 104
[2024-05-06] MEDS: Furosemide 20 MG Tablet PO (10:00)
[2024-05-06] MEDS: Cefdinir 300 MG Capsule PO (10:00)
[2024-05-06] MEDS: Senna/Docusate Sodium 1 Tablet 2 TABLET PO (10:00)
[2024-05-06] MEDS: Calcitriol 0.25 MCG Capsule 0.5 MCG PO (10:00)
[2024-05-06] MEDS: Multivitamin (Healthy Eyes) Capsule 1 CAP PO (10:00)
[2024-05-06] MEDS: Metoprolol(XL)Succ 50 MG Tablet PO (10:00)
[2024-05-06] MEDS: Fluticasone/Salmeterol 232-14 Inhaler 1 PUFF INHALATION (10:01)
[2024-05-06] MEDS: Umeclidinium Bromide Inhaler 1 PUFF INHALATION (10:01)
[2024-05-06] MEDS: Insulin Glargine-YFGN 100 UNIT/ML Pen 65 UNIT SC (10:02)
--- NOTE | 2024-05-06 10:12 | NURSING ---
Addendum entered by Marilyn Berumen 05/06/24 10:24: Updated resident and son Hardik. Original Note: Scheduled appt with [facility], earliest available is June 30 at 1400 with Carol Ortega CNP.
--- NOTE | 2024-05-06 10:19 | NURSING ---
Entered pt room to administer morning meds, both sons were in room encouraging mother to do more for herself. pt ignored son & then asked son to remove sock on left foot, son removed sock and then pt proceeded to ask son to rub her foot. son threw hands up w/frustration and left room. other son stayed in room & asked his mother to please try and help herself. He asked if there was anything she needed. pt would not respond. he left room. pt then began mumbling/whimpering I didn't know how to be a mother, my parents when I was in my 20s, I worked in the [employer] Explained to pt that her sons were just wanting her to help herself get better, to do her part in recovery from surgery. This nurse was preparing meds, turned around to administer them and pt closed eyes and would not respond, called her name couple times, pt still would not respond, tapped her Left shoulder and called her name again. pt opened eyes & took meds. pt repositioned in bed, polar care applied to rt groin per pt request. pt then turned herself on her Left side w/out assist. call light in reach.
[2024-05-06] MEDS: traMADol 50 MG Tablet PO (11:26)
[2024-05-06 12:07] LABS: Bedside Glucose 232 mg/dL (74-106)
[2024-05-06 13:35] VITALS: BP 117/65; PULSE 104
--- NOTE | 2024-05-06 14:00 | NURSING ---
Addendum entered by Daisy Fragoso 05/06/24 17:54: dr munoz reduced ultram to 25mg since pt pain much better. Original Note: assisted pt from chair to bed via lulu, pt incont of urine, but no c/o pain since having PRN ultram one hour prior to therapy at 1230p. pt noted to have jerky movements of upper arms, dilated pupils, unable to follow commands/instructions. had to spoon pills one at a time into pt mouth and have her drink water with instruction. pt dozes off easily, this is not patients normal behavior. will udpate dr munoz. pt repositioned in bed, incont care provided, pt did roll with assist side to side, but no c/o pain or facial grimmacing. surgical dressings removed from incisiions. 4 incisions to rt hip down thigh to knee. all well approximated, brayan intact, with ecchymosis noted at each incision. redressed with dsd & secured with tape.
[2024-05-06 14:22] VITALS: PULSE 104; RESP 18; O2SAT 95
[2024-05-06 16:35] LABS: Bedside Glucose 148 mg/dL (74-106)
[2024-05-06] MEDS: Rivaroxaban 10 MG Tablet PO (18:08)
[2024-05-06 18:09] VITALS: BP 123/61; PULSE 106
--- NOTE | 2024-05-06 18:44 | NURSING ---
Addendum entered by Daisy Fragoso 05/06/24 19:20: floor mats placed on each side of bed. Original Note: pt yelling out in pain, cannot get comfortable in air specialty mattress. feels like its ripping my hip apart, I want my old bed back. many attempts to readjust pt in bed, but continued to yell out. pt hoyered to chair. hi lo bed placed in room. will place mats on floor for safety. pt more alert tonight. eating supper at this time after staff reheated meal. call light in reach. more comfortable in chair at this time.
[2024-05-06 21:44] LABS: Bedside Glucose 116 mg/dL (74-106)
--- NOTE | 2024-05-07 01:06 | NURSING ---
When this nurse went in for HS medication administration, pt was difficult to arouse, refusing to open eyes or respond to verbal stimuli but responded to shoulder tap and sternal rub while sitting in the chair. Pt was transferred x2 assist using the lulu lift from the chair to the bed, pt incontinent of urine and brief changed. This nurse attempted again to arouse pt and pt opened eyes and stated I want to get off my hip; pt repositioned per request. This nurse attempted medical technicians again and pt stated I will take them in the morning pt SpO2: 97% on 2L, HR: 70, pt was twitching/agitated and would not allow staff to get an accurate blood pressure, attempted multiple times with RN. Pt is currently resting with eyes closed in bed with no twitching/involutary movement noted while at rest. Written communication left for Dr. Sánchez regarding increased fatigue and medication refusal. Floor mats placed on each side of bed and room camera on for safety, call light within reach.
[2024-05-07 05:25] VITALS: BP 104/50; PULSE 98
[2024-05-07] MEDS: Acetaminophen 500 MG Tablet 1000 MG PO ×3 (05:28→17:59)
[2024-05-07 05:51] LABS: Bedside Glucose 124 mg/dL (74-106)
[2024-05-07 08:31] VITALS: BP 128/75; PULSE 97
[2024-05-07] MEDS: hydrALAZINE 10 MG Tablet PO ×3 (08:31→16:44)
[2024-05-07 08:32] VITALS: BP 128/75; PULSE 97
[2024-05-07] MEDS: Metoprolol(XL)Succ 50 MG Tablet PO (08:32)
[2024-05-07] MEDS: Multivitamin (Healthy Eyes) Capsule 1 CAP PO (08:32)
[2024-05-07] MEDS: Senna/Docusate Sodium 1 Tablet 2 TABLET PO ×2 (08:32→20:18)
[2024-05-07] MEDS: Gabapentin 300 MG Capsule PO ×2 (08:32→16:44)
[2024-05-07] MEDS: Venlafaxine XR 150 MG Capsule PO (08:33)
[2024-05-07] MEDS: Cefdinir 300 MG Capsule PO (08:33)
[2024-05-07] MEDS: Furosemide 20 MG Tablet PO (08:33)
[2024-05-07] MEDS: Calcitriol 0.25 MCG Capsule 0.5 MCG PO (08:33)
[2024-05-07] MEDS: Fluticasone/Salmeterol 232-14 Inhaler 1 PUFF INHALATION ×2 (08:34→20:18)
[2024-05-07] MEDS: Umeclidinium Bromide Inhaler 1 PUFF INHALATION (08:34)
[2024-05-07] MEDS: Insulin Glargine-YFGN 100 UNIT/ML Pen 65 UNIT SC (09:56)
--- NOTE | 2024-05-07 11:54 | MDS.RN ---
Pain assessment for MDS complete.
--- NOTE | 2024-05-07 12:09 | CASEMGMT ---
Social Work SW completed BIMS (03/01) for MDS assessment. Pt did not participate in PHQ-2/9. ST order entered for BIMS score. SW to follow for mood. Eli Alexis INFORMATICS PHYSICIAN LIAISON PRETZEL TWISTING MACHINE OPERATOR
[2024-05-07 12:14] LABS: Bedside Glucose 184 mg/dL (74-106)
[2024-05-07 12:38] VITALS: BP 121/60; PULSE 89
[2024-05-07 12:41] VITALS: BP 121/60; PULSE 89; RESP 18; TEMP 36.3; O2SAT 96
[2024-05-07 16:44] VITALS: BP 117/66; PULSE 94
[2024-05-07] MEDS: Rivaroxaban 10 MG Tablet PO (16:44)
[2024-05-07 17:00] LABS: Bedside Glucose 200 mg/dL (74-106)
[2024-05-07] MEDS: Atorvastatin Calcium 20 MG Tablet PO (20:18)
[2024-05-07] MEDS: MELATONIN 10 MG TABLET PO (20:18)
[2024-05-07] MEDS: Nystatin Powder 15gm Bottle 1 APPLIC TOPICAL (20:19)
[2024-05-07] MEDS: LORazepam 0.5 MG Tablet PO (20:22)
[2024-05-07 21:15] LABS: Bedside Glucose 181 mg/dL (74-106)
[2024-05-08] MEDS: Acetaminophen 500 MG Tablet 1000 MG PO ×4 (00:34→17:39)
[2024-05-08 06:57] LABS: Bedside Glucose 86 mg/dL (74-106)
[2024-05-08 08:37] VITALS: BP 120/76; PULSE 97
[2024-05-08] MEDS: Venlafaxine XR 150 MG Capsule PO (08:37)
[2024-05-08] MEDS: hydrALAZINE 10 MG Tablet PO ×2 (08:37→13:16)
[2024-05-08 08:38] VITALS: PULSE 97
[2024-05-08] MEDS: Senna/Docusate Sodium 1 Tablet 2 TABLET PO ×2 (08:38→21:35)
[2024-05-08] MEDS: Metoprolol(XL)Succ 50 MG Tablet PO (08:38)
[2024-05-08] MEDS: Multivitamin (Healthy Eyes) Capsule 1 CAP PO (08:38)
[2024-05-08] MEDS: Calcitriol 0.25 MCG Capsule 0.5 MCG PO (08:38)
[2024-05-08] MEDS: Cefdinir 300 MG Capsule PO (08:38)
[2024-05-08] MEDS: Gabapentin 300 MG Capsule PO ×2 (08:38→17:38)
[2024-05-08] MEDS: Furosemide 20 MG Tablet PO (08:38)
[2024-05-08] MEDS: Umeclidinium Bromide Inhaler 1 PUFF INHALATION (08:38)
[2024-05-08] MEDS: Fluticasone/Salmeterol 232-14 Inhaler 1 PUFF INHALATION ×2 (08:38→21:33)
[2024-05-08] MEDS: Insulin Glargine-YFGN 100 UNIT/ML Pen 65 UNIT SC (08:39)
[2024-05-08] MEDS: Nystatin Powder 15gm Bottle 1 APPLIC TOPICAL ×2 (08:39→21:40)
[2024-05-08 11:46] LABS: Bedside Glucose 165 mg/dL (74-106)
[2024-05-08 13:16] VITALS: BP 105/55; PULSE 88
[2024-05-08 13:19] VITALS: BP 108/55; PULSE 88; RESP 16; TEMP 37.1; O2SAT 95
[2024-05-08 13:30] VITALS: O2SAT 95
--- NOTE | 2024-05-08 16:31 | CHAPLAIN ---
Type of Pastoral Visit ___ Initial Visit _x__ Follow-up Visit ___ On-call Visit ___ General Patient Visit ___ Spiritual Assessment ___ Family Conference ___ Bereavement ___ Rapid Response ___ Code Blue ___ Other (describe below) Pastoral Care Referral From _x__ Patient ___ Family ___ Nurse ___ Physician ___ Accredited Farm Manager ___ Literacy Education Professor ___ Other (describe below) Sacrament/Intervention _x__ Active listening ___ Anointing ___ Yazidism ___ Bereavement ___ Communion ___ Agustina exploration ___ _x__ Life review _x__ Prayer ___ Reconciliation ___ Sacrament of Sick _x__ Supportive presence ___ Wedding ___ Other (describe below) Pastoral Comments patient is very talkative today and expresses herself much better than the first visit; pt gives life review and explains how she likes being around people and talking with others; prayer is also accepted;
[2024-05-08] MEDS: Rivaroxaban 10 MG Tablet PO (17:38)
[2024-05-08 17:45] VITALS: BP 96/58; PULSE 88
[2024-05-08 17:54] LABS: Bedside Glucose 162 mg/dL (74-106)
[2024-05-08] MEDS: LORazepam 0.5 MG Tablet PO (21:33)
[2024-05-08] MEDS: Atorvastatin Calcium 20 MG Tablet PO (21:34)
[2024-05-08] MEDS: MELATONIN 10 MG TABLET PO (21:36)
[2024-05-08 22:08] LABS: Bedside Glucose 184 mg/dL (74-106)
[2024-05-09] MEDS: Acetaminophen 500 MG Tablet 1000 MG PO ×4 (04:42→23:07)
[2024-05-09 04:45] VITALS: PULSE 99; RESP 18; O2SAT 98
[2024-05-09 06:26] LABS: Bedside Glucose 109 mg/dL (74-106)
[2024-05-09 09:34] VITALS: BP 101/50; PULSE 94; RESP 16; TEMP 36.7; O2SAT 93
[2024-05-09 09:38] VITALS: PULSE 94
[2024-05-09] MEDS: Senna/Docusate Sodium 1 Tablet 2 TABLET PO ×2 (09:38→21:09)
[2024-05-09] MEDS: Multivitamin (Healthy Eyes) Capsule 1 CAP PO (09:38)
[2024-05-09] MEDS: Umeclidinium Bromide Inhaler 1 PUFF INHALATION (09:38)
[2024-05-09] MEDS: Calcitriol 0.25 MCG Capsule 0.5 MCG PO (09:38)
[2024-05-09] MEDS: Furosemide 20 MG Tablet PO (09:38)
[2024-05-09] MEDS: Venlafaxine XR 150 MG Capsule PO (09:38)
[2024-05-09] MEDS: Insulin Glargine-YFGN 100 UNIT/ML Pen 65 UNIT SC (09:38)
[2024-05-09] MEDS: Gabapentin 300 MG Capsule PO ×2 (09:38→17:28)
[2024-05-09] MEDS: Cefdinir 300 MG Capsule PO (09:38)
[2024-05-09] MEDS: Fluticasone/Salmeterol 232-14 Inhaler 1 PUFF INHALATION ×2 (09:38→21:10)
[2024-05-09] MEDS: Metoprolol(XL)Succ 50 MG Tablet PO (09:38)
[2024-05-09] MEDS: Nystatin Powder 15gm Bottle 1 APPLIC TOPICAL ×2 (09:39→21:11)
[2024-05-09 11:50] LABS: Bedside Glucose 192 mg/dL (74-106)
--- NOTE | 2024-05-09 15:24 | NURSING ---
dr munoz notified of pt last sodium & potassium. new order to check labs today. ok to changed accuchecks to AM & HS since pt on PO med & glargine in AM.
[2024-05-09 16:09] LABS: Absolute Lymphocyte Count 1.57 X10^3/uL (0.83-4.51); Absolute Neutrophil Count 7.3 X10^3/uL (2.0-7.7); Basophil# 0.05 X10^3/uL; Basophil% 0.5 % (0-1); Eosinophil# 0.28 X10^3/uL; Eosinophils% 2.7 % (0-5); Hematocrit 25.1 % (37-47); Hemoglobin 8.3 g/dL (12.0-15.0); Lymphocyte # 1.57 X10^3/ul (0.83-4.51); Lymphocyte % 15.2 % (19-41); Mean Corp Hgb Conc 33.1 g/dL (32-36); Mean Corpuscular Hgb 32.3 pg (27.0-32.0); Mean Corpuscular Volume 97.7 fL (81-99); Monocyte# 0.81 X10^3/uL; Monocyte% 7.9 % (0-10); NRBC Flagged by Analyzer 0 % (0-5); Neutrophil # 7.28 X10^3/uL (2.7-7.7); Neutrophil % 70.7 % (47-70); Platelet Count 342 K/mm3 (150-450); RBC Distribution Width CV 14.6 % (11.6-14.6); RBC Distribution Width SD 51.1 fl (35.1-43.9); Red Blood Count 2.57 M/mm3 (4.2-5.4); White Blood Count 10.3 K/mm3 (4.4-11.0)
[2024-05-09 16:22] LABS: Anion Gap 9 (5-15); BUN 52 mg/dL (7-18); BUN/Creat Ratio 27.8 RATIO (10-20); Calcium,Total 9.7 mg/dL (8.5-10.1); Chloride 97 mmol/L (98-107); Creatinine, Serum 1.87 mg/dL (0.55-1.02); EST Glomerular Filtration Rate 28 mL/min (>60); Est Glom Filt Rate - Afr Amer 33 mL/min (>60); Glucose 204 mg/dL (74-106); Potassium 4.3 mmol/L (3.5-5.1); Sodium Level 131 mmol/L (136-145)
--- NOTE | 2024-05-09 16:45 | NURSING ---
dr munoz notified of lab results, no new orders.
[2024-05-09] MEDS: Rivaroxaban 10 MG Tablet PO (17:28)
[2024-05-09] MEDS: LORazepam 0.5 MG Tablet PO (21:08)
[2024-05-09] MEDS: Atorvastatin Calcium 20 MG Tablet PO (21:10)
[2024-05-09] MEDS: MELATONIN 10 MG TABLET PO (21:10)
[2024-05-09 21:15] LABS: Bedside Glucose 221 mg/dL (74-106)
[2024-05-09] MEDS: Baclofen 10 MG Tablet PO (23:06)
[2024-05-10] MEDS: Acetaminophen 500 MG Tablet 1000 MG PO ×4 (05:05→23:53)
[2024-05-10 06:14] LABS: Bedside Glucose 131 mg/dL (74-106)
[2024-05-10 06:39] VITALS: O2SAT 92
[2024-05-10 09:35] VITALS: BP 114/63; PULSE 97; RESP 18; TEMP 36.4; O2SAT 94
[2024-05-10] MEDS: Gabapentin 300 MG Capsule PO ×2 (09:37→17:54)
[2024-05-10] MEDS: Multivitamin (Healthy Eyes) Capsule 1 CAP PO (09:38)
[2024-05-10] MEDS: Venlafaxine XR 150 MG Capsule PO (09:38)
[2024-05-10] MEDS: Cefdinir 300 MG Capsule PO (09:38)
[2024-05-10] MEDS: Furosemide 20 MG Tablet PO (09:38)
[2024-05-10] MEDS: Calcitriol 0.25 MCG Capsule 0.5 MCG PO (09:38)
[2024-05-10 09:39] VITALS: PULSE 97
[2024-05-10] MEDS: Metoprolol(XL)Succ 50 MG Tablet PO (09:39)
[2024-05-10] MEDS: Senna/Docusate Sodium 1 Tablet 2 TABLET PO ×2 (09:39→20:55)
[2024-05-10] MEDS: Fluticasone/Salmeterol 232-14 Inhaler 1 PUFF INHALATION ×2 (09:40→20:56)
[2024-05-10] MEDS: Insulin Glargine-YFGN 100 UNIT/ML Pen 65 UNIT SC (09:40)
[2024-05-10] MEDS: Umeclidinium Bromide Inhaler 1 PUFF INHALATION (09:40)
[2024-05-10] MEDS: Nystatin Powder 15gm Bottle 1 APPLIC TOPICAL ×2 (09:41→20:56)
[2024-05-10] MEDS: Tuberculin,Purif.prot.deriv. 50 TU/ML Vial 0.1 ML ID (10:22)
[2024-05-10 11:41] LABS: Bedside Glucose 190 mg/dL (74-106)
--- NOTE | 2024-05-10 12:29 | NURSING ---
pt doing well this weekend, no behaviors, pt has been doing SPT x2 from bed to chair/chair to bed. pain is much improved. incont care provided, pt stood w/2 assist then back to chair. pleasant and cooperative. call light in reach. denies needs.
[2024-05-10] MEDS: Rivaroxaban 10 MG Tablet PO (17:54)
[2024-05-10 17:59] VITALS: TEMP 37.5
--- NOTE | 2024-05-10 17:59 | NURSING ---
pt states she feeling warm, heat turned down in room. no other complaints at this time. pt resting in chair, just finished eating meal. call light in reach.
[2024-05-10 18:06] VITALS: PULSE 102; RESP 18; O2SAT 92
[2024-05-10] MEDS: MELATONIN 10 MG TABLET PO (20:57)
[2024-05-10] MEDS: Atorvastatin Calcium 20 MG Tablet PO (20:57)
[2024-05-10 21:53] LABS: Bedside Glucose 188 mg/dL (74-106)
[2024-05-11 05:35] LABS: Absolute Lymphocyte Count 1.58 X10^3/uL (0.83-4.51); Basophil# 0.08 X10^3/uL; Basophil% 0.8 % (0-1); Eosinophil# 0.34 X10^3/uL; Eosinophils% 3.3 % (0-5); Hemoglobin 8.3 g/dL (12.0-15.0); Lymphocyte # 1.58 X10^3/ul (0.83-4.51); Lymphocyte % 15.4 % (19-41); Mean Corp Hgb Conc 31.9 g/dL (32-36); Mean Corpuscular Volume 100.4 fL (81-99); Mean Platelet Vol. 9.3 fl (6.2-12.0); Monocyte# 0.93 X10^3/uL; Monocyte% 9.1 % (0-10); NRBC Flagged by Analyzer 0 % (0-5); Neutrophil # 7.03 X10^3/uL (2.7-7.7); Neutrophil % 68.5 % (47-70); Platelet Count 372 K/mm3 (150-450); RBC Distribution Width CV 14.9 % (11.6-14.6); RBC Distribution Width SD 53.6 fl (35.1-43.9); Red Blood Count 2.59 M/mm3 (4.2-5.4); White Blood Count 10.3 K/mm3 (4.4-11.0)
[2024-05-11 05:42] LABS: Bedside Glucose 133 mg/dL (74-106)
[2024-05-11 05:53] LABS: Anion Gap 9 (5-15); BUN 51 mg/dL (7-18); BUN/Creat Ratio 27.6 RATIO (10-20); Calcium,Total 9.8 mg/dL (8.5-10.1); Chloride 100 mmol/L (98-107); Creatinine, Serum 1.85 mg/dL (0.55-1.02); EST Glomerular Filtration Rate 28 mL/min (>60); Est Glom Filt Rate - Afr Amer 34 mL/min (>60); Estimated Creatinine Clearance 29.52 ml/min; Glucose 138 mg/dL (74-106); Potassium 4.4 mmol/L (3.5-5.1); Sodium Level 133 mmol/L (136-145)
[2024-05-11] MEDS: Acetaminophen 500 MG Tablet 1000 MG PO ×3 (06:07→17:20)
[2024-05-11 08:35] VITALS: BP 123/71; PULSE 99
[2024-05-11] MEDS: Metoprolol(XL)Succ 50 MG Tablet PO (08:35)
[2024-05-11] MEDS: Cefdinir 300 MG Capsule PO (08:35)
[2024-05-11] MEDS: Gabapentin 300 MG Capsule PO ×2 (08:35→17:20)
[2024-05-11] MEDS: Calcitriol 0.25 MCG Capsule 0.5 MCG PO (08:35)
[2024-05-11] MEDS: Senna/Docusate Sodium 1 Tablet 2 TABLET PO ×2 (08:36→21:03)
[2024-05-11] MEDS: Insulin Glargine-YFGN 100 UNIT/ML Pen 65 UNIT SC (08:36)
[2024-05-11] MEDS: Furosemide 20 MG Tablet PO (08:36)
[2024-05-11] MEDS: Multivitamin (Healthy Eyes) Capsule 1 CAP PO (08:36)
[2024-05-11] MEDS: Venlafaxine XR 150 MG Capsule PO (08:36)
[2024-05-11] MEDS: Fluticasone/Salmeterol 232-14 Inhaler 1 PUFF INHALATION ×2 (08:37→21:01)
[2024-05-11] MEDS: Umeclidinium Bromide Inhaler 1 PUFF INHALATION (08:37)
[2024-05-11] MEDS: Nystatin Powder 15gm Bottle 1 APPLIC TOPICAL ×2 (08:41→20:59)
[2024-05-11 08:52] VITALS: BP 123/71; PULSE 99
[2024-05-11 10:43] VITALS: PULSE 99
--- NOTE | 2024-05-11 11:49 | NURSING ---
Train Announcer Note; MDS for 05/09/2024 Complete
[2024-05-11 13:35] VITALS: BP 112/66; PULSE 95; RESP 18; TEMP 36.2; O2SAT 95
[2024-05-11] MEDS: Baclofen 10 MG Tablet PO ×2 (15:07→21:05)
[2024-05-11] MEDS: Rivaroxaban 10 MG Tablet PO (17:20)
[2024-05-11] MEDS: MELATONIN 10 MG TABLET PO (21:03)
[2024-05-11] MEDS: Atorvastatin Calcium 20 MG Tablet PO (21:04)
[2024-05-11 22:15] LABS: Bedside Glucose 249 mg/dL (74-106)
[2024-05-12] MEDS: Acetaminophen 500 MG Tablet 1000 MG PO ×4 (05:07→22:24)
[2024-05-12 06:47] LABS: Bedside Glucose 146 mg/dL (74-106)
[2024-05-12] MEDS: Senna/Docusate Sodium 1 Tablet 2 TABLET PO (08:05)
[2024-05-12] MEDS: Umeclidinium Bromide Inhaler 1 PUFF INHALATION (08:05)
[2024-05-12] MEDS: Lidocaine 5% Patch 2 PATCH TOPICAL (08:05)
[2024-05-12] MEDS: Fluticasone/Salmeterol 232-14 Inhaler 1 PUFF INHALATION ×2 (08:05→20:33)
[2024-05-12] MEDS: Calcitriol 0.25 MCG Capsule 0.5 MCG PO (08:06)
[2024-05-12] MEDS: Gabapentin 300 MG Capsule PO ×2 (08:07→17:09)
[2024-05-12 08:08] VITALS: BP 108/68; PULSE 97
[2024-05-12] MEDS: Cefdinir 300 MG Capsule PO (08:08)
[2024-05-12] MEDS: Metoprolol(XL)Succ 50 MG Tablet PO (08:08)
[2024-05-12] MEDS: Furosemide 20 MG Tablet PO (08:08)
[2024-05-12] MEDS: Venlafaxine XR 150 MG Capsule PO (08:08)
[2024-05-12] MEDS: Multivitamin (Healthy Eyes) Capsule 1 CAP PO (08:08)
[2024-05-12] MEDS: Nystatin Powder 15gm Bottle 1 APPLIC TOPICAL ×2 (08:08→20:36)
[2024-05-12] MEDS: Insulin Glargine-YFGN 100 UNIT/ML Pen 65 UNIT SC (08:12)
[2024-05-12] MEDS: Baclofen 10 MG Tablet PO ×3 (08:12→22:23)
[2024-05-12 08:40] VITALS: BP 108/68; PULSE 97; RESP 18; TEMP 36.6; O2SAT 98
--- NOTE | 2024-05-12 08:45 | NURSING ---
pt left unit for appt
--- NOTE | 2024-05-12 09:35 | NURSING ---
pt returned from dr young
[2024-05-12 10:00] VITALS: PULSE 97; O2SAT 98
--- NOTE | 2024-05-12 13:50 | RAD_ITS ---
PROCEDURE: FEMUR MIN 2 VIEWS REASON FOR EXAM: Postop TECHNIQUE: 2 view(s) of right femur, 4 total images to include the entire femur COMPARISON: 05/05/2024 FINDINGS: LEFT FEMUR: Fully locked gamma nail again in place without evidence of hardware failure, loosening or new interval fracture. Comminuted intertrochanteric fracture not significantly changed in appearance. A few overlying skin brayan remain. Tricompartmental knee osteoarthrosis. RAD/Femur Min 2 Views IMPRESSION: Fully locked gamma nail again in place without evidence of hardware failure, lo osening or new interval fracture. Comminuted intertrochanteric fracture not significantly changed in appearance. A few overl rosa skin brayan remain. Reading Location: [facility]
[2024-05-12 16:43] VITALS: BMI 45.2
[2024-05-12] MEDS: Rivaroxaban 10 MG Tablet PO (17:09)
[2024-05-12] MEDS: MELATONIN 10 MG TABLET PO (20:35)
[2024-05-12] MEDS: Atorvastatin Calcium 20 MG Tablet PO (20:35)
--- NOTE | 2024-05-12 21:11 | NURSING ---
When changing patient at , it was noted that patient had 8 brayan remaining in distal incision of right thigh. Other brayan were removed at f/u appt Saturday. Will contact Dr. Garcia's office Saturday, 05/13 regarding remaining brayan.
[2024-05-12 21:26] LABS: Bedside Glucose 158 mg/dL (74-106)
[2024-05-13] MEDS: Acetaminophen 500 MG Tablet 1000 MG PO ×3 (05:53→17:21)
[2024-05-13 05:58] LABS: Bedside Glucose 144 mg/dL (74-106)
--- NOTE | 2024-05-13 05:58 | NURSING ---
When providing patient care this morning it was noted that patient was having unusual movements of mouth, waving of arms, staring into space. Patient had 3 doses of Baclofen yesterday, which may have contributed to these movements. Tylenol administered for pain, ice applied to hip, patient repositioned in bed. SpO2 98%, pulse 101 at this time. Will continue to monitor.
[2024-05-13] MEDS: Gabapentin 300 MG Capsule PO ×2 (09:14→17:25)
[2024-05-13] MEDS: Insulin Glargine-YFGN 100 UNIT/ML Pen 65 UNIT SC (09:16)
[2024-05-13 09:17] VITALS: BP 117/73; PULSE 89
[2024-05-13] MEDS: Umeclidinium Bromide Inhaler 1 PUFF INHALATION (09:17)
[2024-05-13] MEDS: Multivitamin (Healthy Eyes) Capsule 1 CAP PO (09:17)
[2024-05-13] MEDS: Venlafaxine XR 150 MG Capsule PO (09:17)
[2024-05-13] MEDS: Calcitriol 0.25 MCG Capsule 0.5 MCG PO (09:17)
[2024-05-13] MEDS: Fluticasone/Salmeterol 232-14 Inhaler 1 PUFF INHALATION ×2 (09:17→20:27)
[2024-05-13] MEDS: Metoprolol(XL)Succ 50 MG Tablet PO (09:17)
[2024-05-13] MEDS: Furosemide 20 MG Tablet PO (09:17)
[2024-05-13] MEDS: Lidocaine 5% Patch 2 PATCH TOPICAL (09:21)
[2024-05-13] MEDS: Nystatin Powder 15gm Bottle 1 APPLIC TOPICAL ×2 (09:29→20:26)
[2024-05-13 11:29] LABS: Bedside Glucose 183 mg/dL (74-106)
[2024-05-13 15:44] VITALS: BP 102/60; PULSE 86; RESP 20; TEMP 36.7; O2SAT 96
--- NOTE | 2024-05-13 16:22 | NURSING ---
Called [facility] regarding brayan to right distal incision. Per Dr. Radha love to remove.
[2024-05-13 16:44] LABS: Bedside Glucose 204 mg/dL (74-106)
[2024-05-13] MEDS: Rivaroxaban 10 MG Tablet PO (17:21)
[2024-05-13] MEDS: Atorvastatin Calcium 20 MG Tablet PO (20:27)
[2024-05-13] MEDS: MELATONIN 10 MG TABLET PO (20:27)
[2024-05-13 22:07] LABS: Bedside Glucose 184 mg/dL (74-106)
[2024-05-14] MEDS: Acetaminophen 500 MG Tablet 1000 MG PO ×4 (05:19→23:58)
--- NOTE | 2024-05-14 05:26 | NURSING ---
brayan x8 removed from right hip as ordered, sx sites to right hip remain without s/sx infection. Patient tolerated staple removal well. Denies requests. Call light in reach.
--- NOTE | 2024-05-14 05:44 | NURSING ---
c/o bilat shoulder Aches written communication left for Dr. Sánchez
[2024-05-14 06:41] LABS: Bedside Glucose 109 mg/dL (74-106)
[2024-05-14] MEDS: Gabapentin 300 MG Capsule PO ×2 (08:35→16:51)
[2024-05-14] MEDS: Calcitriol 0.25 MCG Capsule 0.5 MCG PO (08:36)
[2024-05-14] MEDS: Fluticasone/Salmeterol 232-14 Inhaler 1 PUFF INHALATION ×2 (08:36→21:00)
[2024-05-14] MEDS: Umeclidinium Bromide Inhaler 1 PUFF INHALATION (08:36)
[2024-05-14] MEDS: Furosemide 20 MG Tablet PO (08:37)
[2024-05-14] MEDS: Nystatin Powder 15gm Bottle 1 APPLIC TOPICAL ×2 (08:37→20:57)
[2024-05-14 08:38] VITALS: PULSE 75
[2024-05-14] MEDS: Venlafaxine XR 150 MG Capsule PO (08:38)
[2024-05-14] MEDS: Metoprolol(XL)Succ 50 MG Tablet PO (08:38)
[2024-05-14] MEDS: Multivitamin (Healthy Eyes) Capsule 1 CAP PO (08:40)
[2024-05-14] MEDS: Lidocaine 5% Patch 2 PATCH TOPICAL (08:40)
[2024-05-14] MEDS: Insulin Glargine-YFGN 100 UNIT/ML Pen 65 UNIT SC (08:41)
[2024-05-14 08:46] VITALS: BP 118/64; PULSE 96; RESP 17; TEMP 36.7; O2SAT 98
--- NOTE | 2024-05-14 11:05 | MDS.RN ---
Information for the MDS was obtained from review of the clinical record, interview of resident, staff, and direct observation of resident?s care.
[2024-05-14] MEDS: Rivaroxaban 10 MG Tablet PO (16:51)
[2024-05-14] MEDS: MENTHOL 226.8 GM JAR 1 APPLIC TOPICAL (20:58)
[2024-05-14] MEDS: MELATONIN 10 MG TABLET PO (21:00)
[2024-05-14] MEDS: Atorvastatin Calcium 20 MG Tablet PO (21:00)
[2024-05-14] MEDS: Senna/Docusate Sodium 1 Tablet 2 TABLET PO (21:00)
[2024-05-14 21:19] LABS: Bedside Glucose 147 mg/dL (74-106)
[2024-05-15 00:54] VITALS: PULSE 93; RESP 16; O2SAT 92
[2024-05-15] MEDS: Acetaminophen 500 MG Tablet 1000 MG PO ×3 (05:16→16:07)
[2024-05-15 06:10] LABS: Bedside Glucose 107 mg/dL (74-106)
[2024-05-15] MEDS: Gabapentin 300 MG Capsule PO ×2 (08:39→16:07)
[2024-05-15] MEDS: Umeclidinium Bromide Inhaler 1 PUFF INHALATION (08:39)
[2024-05-15 08:40] VITALS: PULSE 98
[2024-05-15] MEDS: Lidocaine 5% Patch 2 PATCH TOPICAL (08:40)
[2024-05-15] MEDS: Senna/Docusate Sodium 1 Tablet 2 TABLET PO ×2 (08:40→21:50)
[2024-05-15] MEDS: Fluticasone/Salmeterol 232-14 Inhaler 1 PUFF INHALATION ×2 (08:40→21:50)
[2024-05-15] MEDS: Metoprolol(XL)Succ 50 MG Tablet PO (08:40)
[2024-05-15] MEDS: Multivitamin (Healthy Eyes) Capsule 1 CAP PO (08:42)
[2024-05-15] MEDS: Venlafaxine XR 150 MG Capsule PO (08:42)
[2024-05-15] MEDS: Calcitriol 0.25 MCG Capsule 0.5 MCG PO (08:43)
[2024-05-15] MEDS: Nystatin Powder 15gm Bottle 1 APPLIC TOPICAL ×2 (08:43→21:50)
[2024-05-15] MEDS: Furosemide 20 MG Tablet PO (08:43)
[2024-05-15] MEDS: Insulin Glargine-YFGN 100 UNIT/ML Pen 65 UNIT SC (08:44)
[2024-05-15 08:49] VITALS: BP 109/63; PULSE 98; RESP 17; TEMP 37.1; O2SAT 95
[2024-05-15 10:00] VITALS: PULSE 95; RESP 18; O2SAT 93
[2024-05-15] MEDS: Rivaroxaban 10 MG Tablet PO (16:08)
[2024-05-15 21:12] LABS: Bedside Glucose 113 mg/dL (74-106)
[2024-05-15] MEDS: Atorvastatin Calcium 20 MG Tablet PO (21:49)
[2024-05-15] MEDS: MELATONIN 10 MG TABLET PO (21:49)
[2024-05-15] MEDS: Baclofen 10 MG Tablet PO (22:56)
[2024-05-16] MEDS: Acetaminophen 500 MG Tablet 1000 MG PO ×5 (00:12→23:24)
--- NOTE | 2024-05-16 06:42 | NURSING ---
CORPORATE HEALTH CONSULTANT reported patient's blood sugar as 59 this AM. Patient reported feeling shaky and dizzy to this nurse. This nurse offered patient orange juice, she accepted. Rechecked blood sugar, 63. Patient was offered another orange juice and savage doones. Rechecked blood sugar, increased to 78. Patient denies symptoms that were reported earlier and stated she feels better.
[2024-05-16 06:58] LABS: Bedside Glucose 78 mg/dL (74-106)
[2024-05-16] MEDS: Gabapentin 300 MG Capsule PO ×2 (08:58→17:18)
[2024-05-16] MEDS: Fluticasone/Salmeterol 232-14 Inhaler 1 PUFF INHALATION ×2 (08:58→20:31)
[2024-05-16] MEDS: Insulin Glargine-YFGN 100 UNIT/ML Pen 65 UNIT SC (08:58)
[2024-05-16 09:00] VITALS: BP 111/60; PULSE 100
[2024-05-16] MEDS: Metoprolol(XL)Succ 50 MG Tablet PO (09:00)
[2024-05-16] MEDS: Venlafaxine XR 150 MG Capsule PO (09:00)
[2024-05-16] MEDS: Multivitamin (Healthy Eyes) Capsule 1 CAP PO (09:00)
[2024-05-16] MEDS: Umeclidinium Bromide Inhaler 1 PUFF INHALATION (09:00)
[2024-05-16] MEDS: Furosemide 20 MG Tablet PO (09:00)
[2024-05-16] MEDS: Nystatin Powder 15gm Bottle 1 APPLIC TOPICAL ×2 (09:01→20:34)
[2024-05-16] MEDS: Lidocaine 5% Patch 2 PATCH TOPICAL (09:01)
[2024-05-16] MEDS: Calcitriol 0.25 MCG Capsule 0.5 MCG PO (09:01)
[2024-05-16 09:10] LABS: Bedside Glucose 191 mg/dL (74-106)
[2024-05-16 14:30] VITALS: BP 102/54; PULSE 87; RESP 16; TEMP 37.1; O2SAT 94
--- NOTE | 2024-05-16 17:07 | NURSING ---
Addendum entered by Fariba Hicks 05/16/24 18:59: Dr. Sánchez updated on urinalysis results. N.O. for Augmentin BID for 7 days. Order Read back. Original Note: Pt C/O of burning, frequency, and incontinence of urine. Dr. Sánchez updated N.O. received for Urinalysis and culture. Order read back.
[2024-05-16] MEDS: Rivaroxaban 10 MG Tablet PO (17:18)
[2024-05-16 18:31] LABS: Mucous, Urine 0 SEEN /hpf (<or=2+)
[2024-05-16 18:33] LABS: Color, Urine Yellow (Yellow); Glucose, Dipstick Normal (Normal); Ketone-Dipstick Negative (Negative); Leukocyte Esterase-Dipstick 100 /ul (Negative); Nitrite-Dipstick Positive (Negative); Occult Blood-Urine Negative /ul (Negative); Protein-Dipstick 15 mg/dl (Negative); Specific Gravity, Urine 1.015 (1.002-1.030); Urine Bilirubin Dipstick Negative (Negative); Urine Clarity Sl. Cloudy (Clear); Urine Urobilinogen Normal (Normal)
[2024-05-16 18:43] LABS: White Blood Cells 5-10 SEEN /hpf (0-5)
[2024-05-16 18:44] LABS: Amorphous Sediment 1+ URATE; Bacteria 1+ /hpf (None Seen); Red Blood Cells-Urine 0 SEEN /hpf (0-5); Squamous Epithelial Cells - UA 0-5 SEEN /hpf (5-10)
[2024-05-16] MEDS: Amox/Clavulanate 500 MG Tablet PO (20:32)
[2024-05-16] MEDS: Atorvastatin Calcium 20 MG Tablet PO (20:33)
[2024-05-16] MEDS: MELATONIN 10 MG TABLET PO (20:33)
[2024-05-16 21:53] LABS: Bedside Glucose 149 mg/dL (74-106)
[2024-05-17 04:53] VITALS: PULSE 96; RESP 18; O2SAT 95
[2024-05-17] MEDS: Acetaminophen 500 MG Tablet 1000 MG PO ×3 (05:01→17:33)
[2024-05-17 06:32] LABS: Bedside Glucose 89 mg/dL (74-106)
--- NOTE | 2024-05-17 06:49 | NURSING ---
Blood sugar this AM 89, patient drank an orange juice. Receives Glargine 65U SQ at 10am. Will continue to monitor.
[2024-05-17] MEDS: Gabapentin 300 MG Capsule PO ×2 (08:08→17:32)
[2024-05-17] MEDS: Venlafaxine XR 150 MG Capsule PO (09:38)
[2024-05-17] MEDS: Fluticasone/Salmeterol 232-14 Inhaler 1 PUFF INHALATION ×2 (09:38→20:46)
[2024-05-17] MEDS: Amox/Clavulanate 500 MG Tablet PO ×2 (09:38→20:43)
[2024-05-17] MEDS: Multivitamin (Healthy Eyes) Capsule 1 CAP PO (09:39)
[2024-05-17] MEDS: Insulin Glargine-YFGN 100 UNIT/ML Pen 65 UNIT SC (09:39)
[2024-05-17] MEDS: Umeclidinium Bromide Inhaler 1 PUFF INHALATION (09:39)
[2024-05-17] MEDS: Furosemide 20 MG Tablet PO (09:40)
[2024-05-17] MEDS: Lidocaine 5% Patch 2 PATCH TOPICAL (09:41)
[2024-05-17] MEDS: Calcitriol 0.25 MCG Capsule 0.5 MCG PO (09:41)
[2024-05-17 09:42] VITALS: PULSE 86
[2024-05-17] MEDS: Metoprolol(XL)Succ 50 MG Tablet PO (09:42)
[2024-05-17] MEDS: Senna/Docusate Sodium 1 Tablet 2 TABLET PO ×2 (09:42→20:45)
[2024-05-17] MEDS: Nystatin Powder 15gm Bottle 1 APPLIC TOPICAL ×2 (09:43→20:44)
[2024-05-17 15:56] VITALS: BP 122/66; PULSE 97; RESP 17; TEMP 36.8; O2SAT 95
[2024-05-17] MEDS: Rivaroxaban 10 MG Tablet PO (17:33)
[2024-05-17] MEDS: Baclofen 10 MG Tablet PO (18:42)
[2024-05-17] MEDS: MELATONIN 10 MG TABLET PO (20:44)
[2024-05-17] MEDS: Atorvastatin Calcium 20 MG Tablet PO (20:44)
[2024-05-17 22:24] LABS: Bedside Glucose 182 mg/dL (74-106)
[2024-05-18] MEDS: Acetaminophen 500 MG Tablet 1000 MG PO ×4 (00:43→17:06)
[2024-05-18 05:40] LABS: Absolute Neutrophil Count 5.9 X10^3/uL (2.0-7.7); Basophil# 0.05 X10^3/uL; Basophil% 0.6 % (0-1); Eosinophil# 0.29 X10^3/uL; Eosinophils% 3.5 % (0-5); Hematocrit 26.4 % (37-47); Hemoglobin 8.3 g/dL (12.0-15.0); Lymphocyte % 15.7 % (19-41); Mean Corp Hgb Conc 31.4 g/dL (32-36); Mean Corpuscular Hgb 31.9 pg (27.0-32.0); Mean Corpuscular Volume 101.5 fL (81-99); Monocyte# 0.64 X10^3/uL; Monocyte% 7.7 % (0-10); NRBC Flagged by Analyzer 0 % (0-5); Neutrophil # 5.91 X10^3/uL (2.7-7.7); Neutrophil % 71.5 % (47-70); Platelet Count 302 K/mm3 (150-450); RBC Distribution Width CV 15.2 % (11.6-14.6); RBC Distribution Width SD 55.3 fl (35.1-43.9); White Blood Count 8.3 K/mm3 (4.4-11.0)
[2024-05-18 06:17] LABS: Bedside Glucose 110 mg/dL (74-106)
[2024-05-18 09:00] VITALS: BP 98/53; PULSE 90; RESP 18; O2SAT 96
[2024-05-18 09:10] VITALS: BP 98/53; PULSE 68
[2024-05-18] MEDS: Amox/Clavulanate 500 MG Tablet PO ×2 (09:10→20:08)
[2024-05-18] MEDS: Metoprolol(XL)Succ 50 MG Tablet PO (09:10)
[2024-05-18] MEDS: Gabapentin 300 MG Capsule PO ×2 (09:10→17:06)
[2024-05-18] MEDS: Venlafaxine XR 150 MG Capsule PO (09:10)
[2024-05-18] MEDS: Furosemide 20 MG Tablet PO (09:11)
[2024-05-18] MEDS: Calcitriol 0.25 MCG Capsule 0.5 MCG PO (09:11)
[2024-05-18] MEDS: Senna/Docusate Sodium 1 Tablet 2 TABLET PO ×2 (09:11→20:09)
[2024-05-18] MEDS: Umeclidinium Bromide Inhaler 1 PUFF INHALATION (09:11)
[2024-05-18] MEDS: Multivitamin (Healthy Eyes) Capsule 1 CAP PO (09:11)
[2024-05-18] MEDS: Fluticasone/Salmeterol 232-14 Inhaler 1 PUFF INHALATION ×2 (09:11→20:07)
[2024-05-18] MEDS: Insulin Glargine-YFGN 100 UNIT/ML Pen 55 UNIT SC (09:12)
[2024-05-18] MEDS: Nystatin Powder 15gm Bottle 1 APPLIC TOPICAL ×2 (09:13→20:08)
[2024-05-18] MEDS: Lidocaine 5% Patch 2 PATCH TOPICAL (09:13)
[2024-05-18 10:30] LABS: Anion Gap 13 (5-15); BUN 57 mg/dL (4-19); Calcium 9.9 mg/dL (7.6-11.0); Carbon Dioxide 20.9 mmol/L (22.0-29.0); Chloride 100 mmol/L (96-108); Creatinine, Serum 1.82 mg/dL (0.70-1.20); EST Glomerular Filtration Rate 28 (>60); Estimated Creatinine Clearance 29.73 ml/min (50-250); Glucose 114 mg/dL (70-99); Potassium 4.6 mmol/L (3.3-5.1); Sodium Level 134 mmol/L (133-145)
--- NOTE | 2024-05-18 11:39 | NURSING ---
New order received from Dr. Sánchez 1) Decrease Glargine insulin from 64 units to 55 units d/t low blood sugars. Patient aware of new order.
[2024-05-18] MEDS: Baclofen 10 MG Tablet PO (14:29)
[2024-05-18 15:54] LABS: Bedside Glucose 59 mg/dL (74-106)
[2024-05-18 15:55] LABS: Bedside Glucose 63 mg/dL (74-106)
[2024-05-18] MEDS: Rivaroxaban 10 MG Tablet PO (17:06)
[2024-05-18 17:30] VITALS: PULSE 90; RESP 18; O2SAT 96
[2024-05-18] MEDS: MELATONIN 10 MG TABLET PO (20:08)
[2024-05-18] MEDS: Atorvastatin Calcium 20 MG Tablet PO (20:08)
[2024-05-18 21:18] LABS: Bedside Glucose 174 mg/dL (74-106)
[2024-05-19] MEDS: Acetaminophen 500 MG Tablet 1000 MG PO ×4 (00:05→17:11)
[2024-05-19] MEDS: LORazepam 0.5 MG Tablet PO (00:05)
[2024-05-19 06:21] LABS: Bedside Glucose 98 mg/dL (74-106)
[2024-05-19] MEDS: Gabapentin 300 MG Capsule PO ×2 (08:02→17:11)
[2024-05-19] MEDS: Amox/Clavulanate 500 MG Tablet PO ×2 (08:02→20:47)
[2024-05-19] MEDS: Insulin Glargine-YFGN 100 UNIT/ML Pen 40 UNIT SC (08:02)
[2024-05-19] MEDS: Venlafaxine XR 150 MG Capsule PO (08:03)
[2024-05-19] MEDS: Multivitamin (Healthy Eyes) Capsule 1 CAP PO (08:03)
[2024-05-19] MEDS: Furosemide 20 MG Tablet PO (08:03)
[2024-05-19] MEDS: Nystatin Powder 15gm Bottle 1 APPLIC TOPICAL ×2 (08:03→20:49)
[2024-05-19] MEDS: Fluticasone/Salmeterol 232-14 Inhaler 1 PUFF INHALATION ×2 (08:03→20:48)
[2024-05-19] MEDS: Calcitriol 0.25 MCG Capsule 0.5 MCG PO (08:03)
[2024-05-19] MEDS: Lidocaine 5% Patch 2 PATCH TOPICAL (08:03)
[2024-05-19] MEDS: Umeclidinium Bromide Inhaler 1 PUFF INHALATION (08:03)
[2024-05-19 08:04] VITALS: PULSE 94
[2024-05-19] MEDS: Senna/Docusate Sodium 1 Tablet 2 TABLET PO (08:04)
[2024-05-19] MEDS: Metoprolol(XL)Succ 50 MG Tablet PO (08:04)
[2024-05-19 09:54] VITALS: BP 127/82; PULSE 94; RESP 18; TEMP 36.4; O2SAT 98
[2024-05-19 10:09] VITALS: BMI 44.8
[2024-05-19] MEDS: Baclofen 10 MG Tablet PO ×2 (11:09→18:29)
[2024-05-19 11:45] VITALS: O2SAT 93
--- NOTE | 2024-05-19 15:27 | CASEMGMT ---
Social Work SW phoned son, Hardik, to discuss DC plans. SW informed pt is progressing well in therapy. Starting this week she is no longer a co-tx in therapy. Pt is participating well. However, pt has determined, and IDT agrees, that she will not DC home and does not want to be at home any longer. Pt expressed enjoying the assistance and attention from staff and the socialization. SW confirmed with son the SNF preferences to begin placing referrals. Son would like pt to remain in [place] with [facility] being FOC. SW offered to refer to all 4 SNFs and provide outcomes. Son agreed. SW explained no DC date has been set, but want to begin the preparation. Son appreciative. - SW sent referral via [facility] to [facility], [facility], [facility] and [facility]. Eli Alexis ASSISTANT VICE PRESIDENT MANAGER GAMING
[2024-05-19] MEDS: Rivaroxaban 10 MG Tablet PO (17:11)
[2024-05-19] MEDS: MENTHOL 226.8 GM JAR 1 APPLIC TOPICAL (18:29)
[2024-05-19] MEDS: MELATONIN 10 MG TABLET PO (20:47)
[2024-05-19] MEDS: Atorvastatin Calcium 20 MG Tablet PO (20:48)
[2024-05-19 21:19] LABS: Bedside Glucose 191 mg/dL (74-106)
[2024-05-20] MEDS: Acetaminophen 500 MG Tablet 1000 MG PO ×5 (00:07→23:58)
[2024-05-20 06:43] LABS: Bedside Glucose 95 mg/dL (74-106)
[2024-05-20] MEDS: Baclofen 10 MG Tablet PO ×2 (06:49→19:26)
[2024-05-20] MEDS: Gabapentin 300 MG Capsule PO ×2 (07:42→16:59)
[2024-05-20 07:47] VITALS: PULSE 80
[2024-05-20] MEDS: Senna/Docusate Sodium 1 Tablet 2 TABLET PO (07:47)
[2024-05-20] MEDS: Calcitriol 0.25 MCG Capsule 0.5 MCG PO (07:47)
[2024-05-20] MEDS: Amox/Clavulanate 500 MG Tablet PO ×2 (07:47→20:44)
[2024-05-20] MEDS: Multivitamin (Healthy Eyes) Capsule 1 CAP PO (07:47)
[2024-05-20] MEDS: Furosemide 20 MG Tablet PO (07:47)
[2024-05-20] MEDS: Metoprolol(XL)Succ 50 MG Tablet PO (07:47)
[2024-05-20] MEDS: Nystatin Powder 15gm Bottle 1 APPLIC TOPICAL ×2 (07:48→20:45)
[2024-05-20 08:30] VITALS: BP 111/73; PULSE 80; RESP 18; TEMP 36.6; O2SAT 92
[2024-05-20] MEDS: Lidocaine 5% Patch 2 PATCH TOPICAL (09:15)
[2024-05-20] MEDS: Umeclidinium Bromide Inhaler 1 PUFF INHALATION (09:17)
[2024-05-20] MEDS: Fluticasone/Salmeterol 232-14 Inhaler 1 PUFF INHALATION ×2 (09:18→20:44)
[2024-05-20] MEDS: Venlafaxine XR 150 MG Capsule PO (09:18)
[2024-05-20] MEDS: Insulin Glargine-YFGN 100 UNIT/ML Pen 35 UNIT SC (09:20)
--- NOTE | 2024-05-20 16:35 | CASEMGMT ---
Social Work SW phoned son, Hardik, to update on SNF outcomes. Left detailed VM explaining [facility] and [facility] can accept. [facility] denied. [facility] does not have beds. Requested return call to confirm FOC. Eli Alexis CAREER PLACEMENT SERVICES COUNSELOR BOTTOM TURNER
[2024-05-20] MEDS: Rivaroxaban 10 MG Tablet PO (16:59)
[2024-05-20 19:35] VITALS: PULSE 92; RESP 16; O2SAT 94
[2024-05-20] MEDS: MELATONIN 10 MG TABLET PO (20:45)
[2024-05-20] MEDS: Atorvastatin Calcium 20 MG Tablet PO (20:45)
[2024-05-20 22:11] LABS: Bedside Glucose 164 mg/dL (74-106)
[2024-05-21] MEDS: Acetaminophen 500 MG Tablet 1000 MG PO ×2 (05:51→11:48)
[2024-05-21] MEDS: Baclofen 10 MG Tablet PO (05:51)
[2024-05-21 06:40] LABS: Bedside Glucose 124 mg/dL (74-106)
[2024-05-21] MEDS: Multivitamin (Healthy Eyes) Capsule 1 CAP PO (09:12)
[2024-05-21] MEDS: Furosemide 20 MG Tablet PO (09:12)
[2024-05-21] MEDS: Fluticasone/Salmeterol 232-14 Inhaler 1 PUFF INHALATION (09:12)
[2024-05-21] MEDS: Venlafaxine XR 150 MG Capsule PO (09:12)
[2024-05-21] MEDS: Umeclidinium Bromide Inhaler 1 PUFF INHALATION (09:12)
[2024-05-21] MEDS: Amox/Clavulanate 500 MG Tablet PO (09:12)
[2024-05-21] MEDS: Gabapentin 300 MG Capsule PO (09:12)
[2024-05-21 09:13] VITALS: PULSE 97
[2024-05-21] MEDS: Nystatin Powder 15gm Bottle 1 APPLIC TOPICAL (09:13)
[2024-05-21] MEDS: Lidocaine 5% Patch 2 PATCH TOPICAL (09:13)
[2024-05-21] MEDS: Metoprolol(XL)Succ 50 MG Tablet PO (09:13)
[2024-05-21] MEDS: Senna/Docusate Sodium 1 Tablet 2 TABLET PO (09:13)
[2024-05-21] MEDS: Calcitriol 0.25 MCG Capsule 0.5 MCG PO (09:13)
[2024-05-21] MEDS: Insulin Glargine-YFGN 100 UNIT/ML Pen 35 UNIT SC (09:13)
--- NOTE | 2024-05-21 09:24 | CASEMGMT ---
Social Work SW received return call from son confirming [facility] is FOC. SW updated son of estimated OOP cost and pt can pay the initial 30 days. SW updated [facility] and [facility]. Will continue to follow for DC planning. Eli Alexis APPEALS ANALYST DENTAL CERAMIST HELPER
[2024-05-21 09:38] VITALS: BP 119/69; PULSE 97; RESP 18; TEMP 36.7; O2SAT 97
--- NOTE | 2024-05-21 13:08 | NURSING ---
New orders per Dr. Sánchez for CBC, BMP, Urinalysis, Urine Culture, X-Ray of the Abdomen, Covid 19 Swab, Respiratory Panel, and D/C Baclofen.
[2024-05-21 13:35] LABS: Absolute Lymphocyte Count 1.05 X10^3/uL (0.83-4.51); Absolute Neutrophil Count 6.9 X10^3/uL (2.0-7.7); Basophil# 0.05 X10^3/uL; Basophil% 0.6 % (0-1); Eosinophils% 1.1 % (0-5); Hematocrit 26.9 % (37-47); Hemoglobin 8.6 g/dL (12.0-15.0); Lymphocyte # 1.05 X10^3/ul (0.83-4.51); Mean Corpuscular Hgb 31.4 pg (27.0-32.0); Mean Corpuscular Volume 98.2 fL (81-99); Monocyte# 0.59 X10^3/uL; Monocyte% 6.7 % (0-10); NRBC Flagged by Analyzer 0 % (0-5); Neutrophil % 78.9 % (47-70); Platelet Count 277 K/mm3 (150-450); RBC Distribution Width CV 15.2 % (11.6-14.6); RBC Distribution Width SD 54.3 fl (35.1-43.9); Red Blood Count 2.74 M/mm3 (4.2-5.4); White Blood Count 8.8 K/mm3 (4.4-11.0)
[2024-05-21 13:38] LABS: Bedside Glucose 161 mg/dL (74-106)
[2024-05-21 13:54] LABS: Anion Gap 13 (5-15); BUN 53 mg/dL (4-19); BUN/Creat Ratio 26.5 RATIO (10-20); Calcium,Total 9.9 mg/dL (7.6-11.0); Carbon Dioxide 19.8 mmol/L (21.0-32.0); Chloride 95 mmol/L (98-108); Creatinine, Serum 1.98 mg/dL (0.70-1.20); EST Glomerular Filtration Rate 25 (>60); Estimated Creatinine Clearance 27.17 ml/min (50-250); Glucose 174 mg/dL (70-99); Potassium 4.4 mmol/L (3.3-5.1); Sodium Level 127 mmol/L (133-145)
--- NOTE | 2024-05-21 14:15 | NURSING ---
Pt. drowsy throughout shift, sleeping off and on throughout morning, Pt. would awaken to verbal stimuli at this time. During lunch pt. was found sleeping with her lunch tray in front of her and was unable to arouse. Pt. not responding to verbal or physical stimuli. Blood Sugar and Blood Pressure stable and within normal limits. 02 85% on room air. Pt. placed on 2L of Oxygen, SpO2 98% on 2L. Called rapid response at 1330, Physician to room. Physician unable to wake pt. Pt. transferred from chair to bed and awoke briefly. Physician ordered pt. to be transferred to ED for further evaluation. Chen NARAYAN updated son.
--- NOTE | 2024-05-21 17:35 | DS.PCM_ITS ---
Providers Date of Admission: 05/02/24 Primary Care Physician: Dr. Neel Ng MD Reason For Visit: RIGHT HIP FRACTURE Diagnosis Discharge Diagnosis (1) Debility: Status: Acute Code(s): R53.81 - Other malaise (2) Fracture of hip, right, closed: Status: Resolved Code(s): S72.001A - Fracture of unspecified part of neck of right femur, initial encounter for closed fracture (3) Contusion of right shoulder: Status: Acute Code(s): S40.011A - Contusion of right shoulder, initial encounter (4) Diabetes mellitus: Status: Chronic Code(s): E11.9 - Type 2 diabetes mellitus without complications (5) Essential (primary) hypertension: Status: Acute Code(s): I10 - Essential (primary) hypertension (6) HLD (hyperlipidemia): Status: Chronic Code(s): E78.5 - Hyperlipidemia, unspecified (7) Chronic kidney disease, stage 4 (severe): Status: Chronic Code(s): N18.4 - Chronic kidney disease, stage 4 (severe) (8) Sleep apnea: Status: Chronic Code(s): G47.30 - Sleep apnea, unspecified (9) COPD (chronic obstructive pulmonary disease): Status: Chronic Code(s): J44.9 - Chronic obstructive pulmonary disease, unspecified (10) Diabetic polyneuropathy: Status: Acute Code(s): E11.42 - Type 2 diabetes mellitus with diabetic polyneuropathy (11) Depression: Status: Acute Code(s): F32.A - Depression, unspecified Plan 79 year old female with below past medical history hospitalized for right hip fracture, right shoulder contusion, underwent right hip intramedullary nail fixation 04/29/[address] Garcia, admitted to TCU with debility, here for rehabilitation, strengthening, prior to discharge home alone. * Debility - PT/OT. * Pain - Tylenol 1000mg q8, Tramadol 50mg q6 prn pain (1-10), Lidoderm 2 patches td daily. * Bowel - senna/colace 2 tablets bid, Magnesium citrate 300mL daily prn. * Adult immunization - Administer pneumonia vaccine, covid vaccine, flu vaccine as appropriate. * DVT prophylaxis - Xarelto 10mg daily thru 06/03/2024. * Hyperlipidemia - Atorvastatin 20mg qhs. * Secondary hyperparathyroidism - Calcitriol 0.5mg daily. * COPD - Fluticasone/Salmeterol 232-14 1 puff bid, Incruse 1 puff daiyl. * Chronic HFpEF - Metoprolol succinate 50mg daily, Hydralazine 25mg tidcm, Furosemide 20mg daily. * Diabetic polyneuropathy - Gabapentin 300mg bidcm. * Diabetes Mellitus II - Glargine 60 units daily. * Insomnia - Melatonin 10mg qhs. * Macular degeneration - Healthy Eyes 1 capsule daily. 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 Medications at Discharge Home Medications simvastatin 40 mg tablet 40 mg PO QHS cholesterol 12/16/12 melatonin 10 mg sublingual tablet 10 mg PO QHS Insomnia 02/20/18 calcitriol 0.5 mcg capsule 0.5 mcg PO DAILY Supplement 08/09/21 vit C 226 mg-vit E 90 mg-copper 0.8 mg-zinc oxide-lutein 5 mg capsule (PreserVision Lutein) 1 cap PO DAILY Supplement 08/09/21 insulin glargine 100 unit/mL (3 mL) subcutaneous pen (Lantus Solostar U-100 Insulin) 60 unit subcut DAILY Diabetes 12/25/21 docusate sodium 100 mg capsule 100 mg PO DAILY PRN stool softener 03/30/22 furosemide 20 mg tablet 20 mg PO DAILY 03/30/22 sennosides 8.6 mg capsule (senna) 8.6 mg PO DAILY PRN constipation 03/30/22 fluticasone fur. 100 mcg-umeclid 62.5 mcg-vilant 25 mcg inhalat.powder (Trelegy Ellipta) 1 inh inhalation DAILY SOB 05/23/22 hydralazine 25 mg tablet 25 mg PO TID Blood pressure 01/30/23 gabapentin 300 mg capsule 300 mg PO Q12H pain 04/28/24 lidocaine 5 % topical patch 2 patch topical DAILY PRN pain, moderate 04/28/24 metoprolol succinate 50 mg tablet,extended release 24 hr 50 mg PO DAILY Blood pressure 04/28/24 tirzepatide 2.5 mg/0.5 mL subcutaneous pen injector (Colten) See Rx Instructions subcut .COMPLEX Diabetes 04/28/24 Held on 05/02/24. Instructions: On hold while on unit venlafaxine 75 mg capsule,extended release 24 hr 75 mg PO DAILY Depression 04/28/24 rivaroxaban 10 mg tablet (Xarelto) 10 mg PO DINNER Anticoagulant 26 days #0 tabs 05/02/24 acetaminophen 325 mg tablet (Tylenol) 325 mg PO ONCE PRN fever or pain 05/12/24 Hospital Course Operations - (See below.) Procedures None Summary of Care Provided Minutes Spent on Discharge: 15 Hospital Course: 79 year old female with below past medical history hospitalized for right hip fracture, right shoulder contusion, underwent right hip intramedullary nail fixation 04/29/[address] Garcia, admitted to TCU with debility, here for rehabilitation, strengthening, prior to discharge home alone. 05/21/2024 Resident had change in mental status, labs, urine, X-ray of abdomen, covid, respiratory panel ordered, Baclofen discontinued. Later, resident became unresponsive. Discharge to [facility] ED 05/21/2024 for evaluation, possible admission to [facility]. Weight / BMI Weight Weight: 114.714 kg Body Mass Index (BMI) 44.8 ABG / Lab / Microbiology Data 05/21/24 13:23 05/21/24 13:23 Laboratory: Laboratory Results - last 24 hr 05/20/24 21:52: POC Glucose 164 H 05/21/24 06:22: POC Glucose 124 H 05/21/24 13:17: POC Glucose 161 H 05/21/24 13:23: WBC 8.8, RBC 2.74 L, Hgb 8.6 L, Hct 26.9 L, MCV 98.2, MCH 31.4, MCHC 32.0, RDW Std Deviation 54.3 H, RDW Coeff of Yoel 15.2 H, Plt Count 277, MPV 9.0, Immature Gran % (Auto) 0.700, Neut % (Auto) 78.9 H, Lymph % (Auto) 12.0 L, [place] % (Auto) 6.7, Eos % (Auto) 1.1, Baso % (Auto) 0.6, Absolute Neuts (auto) 6.9, Absolute Lymphs (auto) 1.05, Nucleated RBC % 0, Sodium 127 L, Potassium 4.4, Chloride 95 L, Carbon Dioxide 19.8 L, Anion Gap 13, BUN 53 H, Creatinine 1.98 H, Estim Creat Clear Calc 27.17 L, Est GFR (MDRD) Non-Af 25 L, B UN/Creatinine Ratio 26.5 H, Glucose 174 H, Calcium 9.9 Microbiology: Microbiology 05/21/24 13:00 Nasal Secretion SARS-CoV-2 Antigen (Rapid) - Final 05/16/24 18:10 Urine, Catheterized Urine Culture - Final Klebsiella pneumoniae sp pneum 05/04/24 18:00 Urine, Catheterized Urine Culture - Final Proteus mirabilis 05/06/24 Unknown Nasal Secretion SARS-CoV-2 Antigen (Rapid) - Final D/C Instructions Discharge Diet: No restrictions Discharge Activity: Return to Normal Activity, May Shower and Use Walker Weight Bearing Status: Weight bearing as tolerated Call your doctor if you observe: Fever of 101 or Higher, Inability to urinate, Inability to have a bowel movement, Using more than 1 pad per hour, Shortness of breath, Dizziness, Fainting spells, Swelling in the ankles, Chest pain and Uncontrolled pain DC O2, CPAP, BIPAP Needs Home O2 Discharge instructions: No Additional Instructions: Discharge to [facility] ED 05/21/2024 for evaluation, possible admission to [facility]. Please Follow Up With: Horacio Garcia MD Meaningful Use Info Meaningful Use Meaningful Use Diagnoses (Choose all that apply): None applicable Ischemic Stroke Statin Dosing Therapy Reference: STATIN DOSE THERAPY REFERENCE: * Patients > 75 years receive moderate or high dose statin therapy. * Patients 75 years or YOUNGER should receive HIGH intensity statin dose unless contraindicated. You will be required to document reason for non-treatment if statin daily dose does not meet guidelines. HIGH DOSE STATIN THERAPY DAILY Atorvastatin > than or = to 40 mg Rosuvastatin > than or = to 20 mg Amlodipine + Atorvastatin > than or = to 2.5/40 mg Ezetimibe + Simvastatin 10/80 mg Simvastatin 80mg Discharge Plan Admission Admit Date/Time: 05/02/24 19:47 Primary Reason for Your Visit: Debility. Attending Provider: Jose Sánchez Chi Primary Care Provider: Neel Ng Instructions Additional Instructions / Restrictions: Discharge to [facility] ED 05/21/2024 for evaluation, possible admission to [facility]. Discharge Orders/Prescriptions Prescriptions: No Action acetaminophen [Tylenol] 325 mg tablet 325 mg PO ONCE PRN (Reason: fever or pain) simvastatin 40 MG tablet 40 mg PO QHS Patient Comments: CHOLESTEROL melatonin 10 MG tablet 10 mg PO QHS 0RF calcitriol 0.5 mcg Capsule 0.5 mcg PO DAILY PreserVision Lutein 226 mg-200 unit -0.8 mg-5 mg Capsule 1 cap PO DAILY insulin glargine [Lantus Solostar U-100 Insulin] 100 UNITS/ML insulin pen 60 unit subcut DAILY docusate sodium 100 mg Capsule 100 mg PO DAILY PRN (Reason: stool softener) furosemide 20 mg Tablet 20 mg PO DAILY senna 8.6 mg Capsule 8.6 mg PO DAILY PRN (Reason: constipation) Trelegy Ellipta 100-62.5-25 mcg Blister With Device 1 inh INHALATION DAILY hydralazine 25 mg tablet 25 mg PO TID Mounjaro 2.5 mg/0.5 mL pen injector See Rx Instructions SUBCUT .COMPLEX Rx Instructions: lowest dose subcutaneously; every saturday venlafaxine 75 mg capsule,extended release 24hr 75 mg PO DAILY metoprolol succinate 50 mg tablet extended release 24 hr 50 mg PO DAILY lidocaine 5 % Adhesive Patch,Medicated 2 patch topical DAILY PRN (Reason: pain, moderate) Protocol: *Topical Application Instructions APPLICATION INSTRUCTIONS: Apply to R groin/top of thigh gabapentin 300 mg Capsule 300 mg PO Q12H Xarelto 10 mg Tablet 10 mg PO DINNER 26 Days Qty: 0 0RF Referrals / Follow Up: [facility] [Provider Group] - 06/30/24 2:00 pm (Will see Carol Ortega CNP) Horacio Garcia MD [Med Staff - Active Staff] - (6 week post-op follow-up) Neel Ng MD [Primary Care Provider] - Disposition Disposition (needs filled in before D/C Order can be placed): [facility]
== END 2024-05-21 17:07 | disposition short-term general hospital (02) | DRG 560 ==
PROVIDERS: Admitting Provider Family Medicine Geriatric Medicine; PCP Internal Medicine; Visit Provider Family Medicine Geriatric Medicine
DX: S72.001D Fracture of unspecified part of neck of right femur, subsequent encounter for closed fracture with routine healing (principal); I13.0 Hypertensive heart and chronic kidney disease with heart failure and stage 1 through stage 4 chronic kidney disease, or unspecified chronic kidney disease; N25.81 Secondary hyperparathyroidism of renal origin; I50.32 Chronic diastolic (congestive) heart failure; N18.4 Chronic kidney disease, stage 4 (severe); N39.0 Urinary tract infection, site not specified; J44.9 Chronic obstructive pulmonary disease, unspecified; E11.22 Type 2 diabetes mellitus with diabetic chronic kidney disease; F32.A Depression, unspecified; H35.30 Unspecified macular degeneration; Z79.4 Long term (current) use of insulin; G47.30 Sleep apnea, unspecified; E78.5 Hyperlipidemia, unspecified; E11.42 Type 2 diabetes mellitus with diabetic polyneuropathy; W19.XXXD Unspecified fall, subsequent encounter; S40.011D Contusion of right shoulder, subsequent encounter; Z87.891 Personal history of nicotine dependence; Z79.899 Other long term (current) drug therapy; Z86.718 Personal history of other venous thrombosis and embolism; Z79.01 Long term (current) use of anticoagulants
CPT/HCPCS: 36415; 72170; 73552; 80048; 81001; 82962; 85025; 87077; 87086; 87088; 87186; 87811; 92523; 97110; 97116; 97129; 97130; 97162; 97166; 97530; 97535; 97802; 97803; A4216

== ENCOUNTER 2024-05-20 09:28 | Outpatient (CLI) | payer MEDICARE, OTHER, SELFPAY ==
[2024-05-20] MEDS: Epoetin Alfa epbx 10,000 UNIT/ML 20000 UNIT SC (09:36)
[2024-05-20 09:38] VITALS: BP 109/81; PULSE 87; RESP 18; TEMP 36.1; O2SAT 97; BMI 46.3
== END 2024-05-20 23:59 | disposition home or self-care (01) ==
LOC: MEDOUTP 09:28
PROVIDERS: PCP Internal Medicine; Referring Provider Internal Medicine Nephrology; Visit Provider Internal Medicine Nephrology
DX: N18.32 Chronic kidney disease, stage 3b (principal); D63.1 Anemia in chronic kidney disease
CPT/HCPCS: 96372 ×2; Q5106

== ENCOUNTER 2024-05-21 13:50 | Inpatient (IN) | payer MEDICARE, OTHER, SELFPAY ==
[2024-05-21] VITALS (11 sets, daily range): BP systolic 120–142; BP diastolic 63–94; PULSE 90–97; RESP 12–26; TEMP 35.4–36.6; O2SAT 97–99; BMI 49.3
--- NOTE | 2024-05-21 14:10 | EDS_ITS ---
HPI History of Present Illness Chief Complaint: Alt LOC Narrative Narrative: History and physical is mildly limited secondary to patient's change in mental status. 79-year-old female presents from the TCU as a rapid response team. Supportive that she is short of breath. She had choked on a sandwich reportedly. She presents with acute change in mental status, and reported decreased level of consciousness since this morning. Patient does know her name, and states that she is in [place], and also states that she wears oxygen at night. She denies any pain, no fevers or chills or shortness of breath. However, she appears drowsy. [facility] Medical History Diabetic polyneuropathy COPD (chronic obstructive pulmonary disease) Chronic kidney disease, stage 4 (severe) Essential (primary) hypertension Debility Sleep apnea Diabetes Chronic pain Kidney stones Kidney disease DVT (deep venous thrombosis) Home Medications ?Medication ?Instructions ?Recorded ?Last Taken ?Type simvastatin 40 mg tablet 40 mg PO QHS cholesterol 03/3004/27/24 History melatonin 10 mg sublingual tablet 10 mg PO QHS Insomni a 02/20/18 04/27/24 Rx calcitriol 0.5 mcg capsule 0.5 mcg PO DAILY Supplement 08/09/21 04/27/24 History vit C 226 mg-vit E 90 mg-copper 1 cap PO DAILY Supplem ent 08/09/21 04/27/24 History 0.8 mg-zinc oxide-lutein 5 mg capsule (PreserVision Lutein) insulin glargine 100 unit/mL (3 60 unit subcut DAILY D iabetes 12/25/21 04/27/24 07:00 History mL) subcutaneous pen (Lantus Solostar U-100 Insulin) docusate sodium 100 mg capsule 100 mg PO DAILY PRN sto ol softener 03/30/22 Unknown History furosemide 20 mg tablet 20 mg PO DAILY 03/30/2204/18 History sennosides 8.6 mg capsule (senna) 8.6 mg PO DAILY PRN constipation 03/30/22 Unknown History fluticasone fur. 100 mcg-umeclid 1 inh inhalation AC Y SOB 05/23/22 04/27/24 History 62.5 mcg-vilant 25 mcg inhalat.powder (Trelegy Ellipta) hydralazine 25 mg tablet 25 mg PO TID Blood pressure 01/30/23 04/27/24 History gabapentin 300 mg capsule 300 mg PO Q12H pain 04/28/24 04/27/24 History lidocaine 5 % topical patch 2 patch topical DAILY PRN pain, 04/28/24 Unknown History moderate metoprolol succinate 50 mg 50 mg PO DAILY Blood pressu re 04/28/24 04/27/24 History tablet,extended release 24 hr tirzepatide 2.5 mg/0.5 mL See Rx Instructions subcut 0 04/28/24 04/26/24 History subcutaneous pen injector .COMPLEX Diabetes (Mounjaro) Held on 05/02/24. Instructions: On hold while on unit venlafaxine 75 mg capsule,extended 75 mg PO DAILY Depr ession 04/28/24 04/27/24 History release 24 hr rivaroxaban 10 mg tablet (Xarelto) 10 mg PO DINNER Ant icoagulant 26 05/02/24 05/20/24 Rx days #0 tabs acetaminophen 325 mg tablet 325 mg PO ONCE PRN fever o r pain 05/12/24 Unknown History (Tylenol) Allergy/AdvReac Type Severity Reaction Status Date / Time levofloxacin (From Levaquin) Allergy Hives Verified 05/12/24 09:01 Sulfa (Sulfonamide Allergy Hives Verified 05/12/24 09:01 Antibiotics) Opioids - Morphine Analogues AdvReac Intermediate Other Verified 05/12/24 09:01 (narcotics) Family History Sister Breast cancer Other Heart disease Prostate cancer Surgical History History of hip surgery S/P hysterectomy History of appendectomy History of cholecystectomy Social History household members: none number of children: 2 Smoking Status: Former smoker alcohol intake: never substance use type: does not use additional social history: Lives alone in a house in [facility] ROS ED Review of Systems ROS Unobtainable: due to mental status EXAM Physical Exam Narrative Exam Narrative: Afebrile. Vital signs noted. Nontoxic-appearing. Cardiovascular examination feels a regular rate and rhythm. Lungs are clear to auscultation bilaterally. This is anteriorly. Abdomen soft and nontender. Neurological examination shows her to be intermittently awake, and oriented to person and place. She is wearing bilateral lower extremity leg braces. Const Vital Signs: 05/21/24 13:52 05/21/24 14:02 05/21/24 14:45 Temperature 95.8 F L Temperature Source Temporal Pulse Rate 95 94 91 Respiratory Rate 26 H 18 13 Blood Pressure 120/63 122/76 H 122/81 H Blood Pressure Mean 82 91 94 Pulse Ox 97 97 99 Oxygen Delivery Method Nasal Cannula Nasal Cannula Oxygen Flow Rate (L/min) 2 2 MDM MDM MDM Narrative Medical decision making narrative: I reviewed her prior problem list. She does have COPD and sleep apnea. Differential diagnosis includes but not limited to pneumonia versus acute delirium from UTI versus dehydration. Also on the differential diagnosis would be COPD exacerbation with CO2 retention. Current pulse ox 97% on 2 L nasal cannula oxygen. I doubt sepsis. I will obtain a VBG to look at her CO2 level. I reviewed her laboratory work and she has normal white count 9.5 with hemoglobin stable at 9.0 when compared to previous laboratories, hematocrit 27.3, platelet count normal at 309. She is hyponatremic at 128 although when compared to previous laboratories she tends to have a chronic hyponatremia with chloride 94 which is concerning for dehydration. CO2 low at 19.9. Glucose elevated at 170 with a normal anion gap of 14. Alk phos elevated at 139 which I think is nonspecific. Chest x-ray in 1 view interpreted by myself shows right sided infiltrate. I did review previous chest x-ray and this is more prominent. I also reviewed her EMR and she had been admitted to the hospital with a hip fracture on 28 April, few weeks ago. Additionally, I reviewed her ABG and she has normal pH of 7.3, and there is no evidence of CO2 retention. It is low. I reviewed the radiology report of the CT of the brain and there is no acute process. I am unsure as to the cause of her decreased mental status but it may be from her pneumonia and hyponatremia. I will discuss patient with the hospitalist for admission. History & Record Review Discussion w/independent historian: Patient and Family Lab Data Attestation: I reviewed the patient's lab results. Labs: Laboratory Results - last 24 hr 05/21/24 14:37 WBC 9.5 RBC 2.81 L Hgb 9.0 L Hct 27.3 L MCV 97.2 MCH 32.0 MCHC 33.0 RDW Std Deviation 55.8 H RDW Coeff of Yoel 15.8 H Plt Count 309 MPV 9.6 Immature Gran % (Auto) 0.700 Neut % (Auto) 80.4 H Lymph % (Auto) 10.9 L [place] % (Auto) 6.2 Eos % (Auto) 1.3 Baso % (Auto) 0.5 Absolute Neuts (auto) 7.6 Absolute Lymphs (auto) 1.03 Nucleated RBC % 0 Sodium 128 L Potassium 4.8 Chloride 94 L Carbon Dioxide 19.9 L Anion Gap 14 BUN 53 H Creatinine 2.06 H Estim Creat Clear Calc 27.17 L Est GFR (MDRD) Non-Af 24 L BUN/Creatinine Ratio 25.6 H Glucose 170 H Calcium 10.4 Total Bilirubin 0.34 AST 20 ALT 20 Alkaline Phosphatase 139 H Total Protein 7.0 Albumin 3.9 Globulin 3.1 Albumin/Globulin Ratio 1.2 ABG Data ABG results: ABG 05/21/24 14:50 Specimen Type MARY Sample Site Not entered O2 % 3.0 VBG pH 7.39 VBG pO2 65 H VBG HCO3 21 L VBG Total CO2 22 L VBG O2 Sat (Calc) 93 H VBG Base Excess -5 L POC Mix VBG pCO2 Pt Tmp 34.1 L O2 Delivery Device Cannula Radiography Diagnostic Testing: Clinical Impression(s) from Imaging Studies Brain CT 05/21/24 14:55 IMPRESSION: Brain atrophy as described. Stable encephalomalacia in the right temporal parietal lobes suggestive of prior ischemic insult. Reading Location: [id number] Chest X-Ray 05/21/24 15:15 IMPRESSION: Right midlung infiltrate is suspected. Can not exclude left lower lobe infiltrate. Cardiomegaly. Reading Location: [facility] Discharge Plan Triage Chief Complaint: Alt LOC ED Provider: Noel Johnston Dx/Rx/DC Orders Prescriptions: No Action acetaminophen [Tylenol] 325 mg tablet 325 mg PO ONCE PRN (Reason: fever or pain) simvastatin 40 MG tablet 40 mg PO QHS Patient Comments: CHOLESTEROL melatonin 10 MG tablet 10 mg PO QHS 0RF calcitriol 0.5 mcg Capsule 0.5 mcg PO DAILY PreserVision Lutein 226 mg-200 unit -0.8 mg-5 mg Capsule 1 cap PO DAILY insulin glargine [Lantus Solostar U-100 Insulin] 100 UNITS/ML insulin pen 60 unit subcut DAILY docusate sodium 100 mg Capsule 100 mg PO DAILY PRN (Reason: stool softener) furosemide 20 mg Tablet 20 mg PO DAILY senna 8.6 mg Capsule 8.6 mg PO DAILY PRN (Reason: constipation) Trelegy Ellipta 100-62.5-25 mcg Blister With Device 1 inh INHALATION DAILY hydralazine 25 mg tablet 25 mg PO TID Mounjaro 2.5 mg/0.5 mL pen injector See Rx Instructions SUBCUT .COMPLEX Rx Instructions: lowest dose subcutaneously; every saturday venlafaxine 75 mg capsule,extended release 24hr 75 mg PO DAILY metoprolol succinate 50 mg tablet extended release 24 hr 50 mg PO DAILY lidocaine 5 % Adhesive Patch,Medicated 2 patch topical DAILY PRN (Reason: pain, moderate) Protocol: *Topical Application Instructions APPLICATION INSTRUCTIONS: Apply to R groin/top of thigh gabapentin 300 mg Capsule 300 mg PO Q12H Xarelto 10 mg Tablet 10 mg PO DINNER 26 Days Qty: 0 0RF Primary Care Provider: Neel Ng Referrals: Neel Ng MD [Primary Care Provider] - Print Language: Fijian
[2024-05-21 14:50] LABS: Absolute Lymphocyte Count 1.03 X10^3/uL (0.83-4.51); Absolute Neutrophil Count 7.6 X10^3/uL (2.0-7.7); Basophil# 0.05 X10^3/uL; Basophil% 0.5 % (0-1); Eosinophil# 0.12 X10^3/uL; Eosinophils% 1.3 % (0-5); Hematocrit 27.3 % (37-47); Lymphocyte # 1.03 X10^3/ul (0.83-4.51); Lymphocyte % 10.9 % (19-41); Mean Corpuscular Volume 97.2 fL (81-99); Mean Platelet Vol. 9.6 fl (6.2-12.0); Monocyte# 0.59 X10^3/uL; Monocyte% 6.2 % (0-10); NRBC Flagged by Analyzer 0 % (0-5); Neutrophil # 7.63 X10^3/uL (2.7-7.7); Neutrophil % 80.4 % (47-70); Platelet Count 309 K/mm3 (150-450); RBC Distribution Width CV 15.8 % (11.6-14.6); RBC Distribution Width SD 55.8 fl (35.1-43.9); Red Blood Count 2.81 M/mm3 (4.2-5.4); White Blood Count 9.5 K/mm3 (4.4-11.0)
[2024-05-21 14:53] LABS: Blood Gas Specimen Type VEN; O2 Delivery Device Cannula; SITE Not entered; VBG BASE EXCESS -5 mmol/L (-1.0-3.5); VBG Bicarbonate 21 mmol/L (22-26); VBG PO2 65 mmHg (25-40); VBG SO2 93 % (50-70); VBG TCO2 22 mmol/L (23-33); VBG pCO2 34.1 mmHg (41-51); VBG pH 7.39 (7.32-7.42)
--- NOTE | 2024-05-21 14:55 | CT_ITS ---
EXAM: BRAIN/HEAD WITHOUT CONTRAST CLINICAL HISTORY: Mental status changes. COMPARISON: Comparison is made with prior study dated April 28, 2024. TECHNIQUE: Multiple axial tomographic images were obtained without intravenous contrast administration. Coronal and sagittal reconstruction was obtained as well. FINDINGS: Mild degree of cerebral atrophy. Stable encephalomalacia in the left temporal parietal lobes in keeping with prior ischemic insult. No acute abnormality is seen. CT/Brain/Head without Contrast IMPRESSION: Brain atrophy as described. Stable encephalomalacia in the right temporal parietal lobes suggestive of prio r ischemic insult. Reading Location: [id number]
--- NOTE | 2024-05-21 15:15 | RAD_ITS ---
PROCEDURE: CHEST 1 VIEW (PORTABLE) REASON FOR EXAM: Altered mental status. Shortness of breath. TECHNIQUE: Frontal and lateral views of the chest. COMPARISON: None. FINDINGS: Lungs: Airspace consolidation in the right midlung. Can not exclude airspace consolidation in the left lower lobe, retrocardiac region. Pleura: No pleural effusions, thickening, or pneumothorax. Heart: Cardiomegaly. Mediastinum/Lina: Unremarkable. Great vessels: Unremarkable. Bones/soft tissues: Degenerative changes of the right glenohumeral joint. The cardiac pacer generator and leads are noted. Cardiac monitoring leads overlie the chest wall. RAD/Chest 1 View (Portable) IMPRESSION: Right midlung infiltrate is suspected. Can not exclude left lower lobe infiltr ate. Cardiomegaly. Reading Location: [place] [id number]
[2024-05-21 15:17] LABS: ALB/GLOB Ratio 1.2 RATIO (0.9-2.4); AST(SGOT) 20 U/L (<=31); Alanine Aminotransfer ALT/SGPT 20 U/L (<=34); Albumin, Serum 3.9 g/dL (3.4-4.8); Alkaline Phosphatase 139 U/L (35-104); Anion Gap 14 (5-15); BUN 53 mg/dL (4-19); BUN/Creat Ratio 25.6 RATIO (10-20); Calcium,Total 10.4 mg/dL (7.6-11.0); Carbon Dioxide 19.9 mmol/L (21.0-32.0); Chloride 94 mmol/L (98-108); Creatinine, Serum 2.06 mg/dL (0.70-1.20); EST Glomerular Filtration Rate 24 (>60); Estimated Creatinine Clearance 27.17 ml/min (50-250); Globulin 3.1 g/dL (2.2-4.2); Glucose 170 mg/dL (70-99); Potassium 4.8 mmol/L (3.3-5.1); Sodium Level 128 mmol/L (133-145); Total Bilirubin 0.34 mg/dL (0.00-1.30)
[2024-05-21 16:23] LABS: Bacteria 0 SEEN /hpf (None Seen); Mucous, Urine 0 SEEN /hpf (<or=2+); White Blood Cells 0 SEEN /hpf (0-5)
[2024-05-21 16:51] LABS: Color, Urine Yellow (Yellow); Glucose, Dipstick Normal (Normal); Ketone-Dipstick Negative (Negative); Leukocyte Esterase-Dipstick Negative /ul (Negative); Nitrite-Dipstick Negative (Negative); Occult Blood-Urine Negative /ul (Negative); Protein-Dipstick 30 mg/dl (Negative); Urine Bilirubin Dipstick Negative (Negative); Urine Clarity Sl. Cloudy (Clear); Urine Urobilinogen Normal (Normal)
--- NOTE | 2024-05-21 17:04 | PCM.HP.STD ---
HPI - General General Date of Admission: 05/21/24 Date of Service: 05/21/24 HPI Narrative VAL ERICKSON, is a 79 F with a PMH as outlined who was admitted from the Transitional Care Unit today after a rapid response was called. Patient had been on admission in the TCU for some days after she had surgery for a right hip fracture. She was doing well until this afternoon when she was found very lethargic and minimally responsive. She had apparently been noticed to be a bit less alert this morning. The rapid response was called after she was found very lethargic and minimally responsive. I was one of the hospitalists who responded to the rapid. Patient was noted to be very lethargic and did not respond to voice, sternal rub. Her vitals were stable at that time and blood sugar was also within normal limits. Decision was made to send her to the ED. She could not give any history due to her confusion. Vitals in the ED were blood pressure 142/94, pulse rate of 96 and respiratory of 20. She was saturating at 99% on 2 L of oxygen. CBC showed WBC of 9.5 with hemoglobin of 9 and platelets of 309. Chemistry showed sodium of 128 with potassium of 4.8 and bicarb of 19.9. Creatinine was 2.06 and urinalysis was still pending at time of review. CT of the brain showed no acute intracranial pathology and showed brain atrophy with stable encephalomalacia in the right temporal parietal lobe suggestive of prior ischemic insults. Chest x-ray done showed right midlung infiltrate and cannot exclude left lower lobe infiltrate. Per her nurse, staff in the TCU had mentioned that patient had possibly aspirated while she was eating her lunch. In light of the chest x-ray findings, patient has been admitted to be managed for hypoxia and acute encephalopathy likely due to aspiration pneumonia. [facility] Medical History (Updated 05/21/24 @ 16:56 by Nila Dallas) Anxiety Osteoporosis GERD (gastroesophageal reflux disease) On home oxygen therapy Irregular heart beat ICD (implantable cardioverter-defibrillator) in place Congestive heart failure (CHF) Diabetic polyneuropathy COPD (chronic obstructive pulmonary disease) Chronic kidney disease, stage 4 (severe) Essential (primary) hypertension Debility Sleep apnea Diabetes Chronic pain Kidney stones Kidney disease DVT (deep venous thrombosis) Home Medications ?Medication ?Instructions ?Recorded ?Last Taken ?Type simvastatin 40 mg tablet 40 mg PO QHS cholesterol 12/16/12 04/27/24 History melatonin 10 mg sublingual tablet 10 mg PO QHS Insomnia 02/20/18 04/27/24 Rx calcitriol 0.5 mcg capsule 0.5 mcg PO DAILY Supplement 08/09/21 04/27/24 History vit C 226 mg-vit E 90 mg-copper 1 cap PO DAILY Supplement 08/09/21 04/27/24 History 0.8 mg-zinc oxide-lutein 5 mg capsule (PreserVision Lutein) insulin glargine 100 unit/mL (3 60 unit subcut DAILY Diabetes 12/25/21 04/27/24 07:00 History mL) subcutaneous pen (Lantus Solostar U-100 Insulin) docusate sodium 100 mg capsule 100 mg PO DAILY PRN stool softener 03/30/22 Unknown History furosemide 20 mg tablet 20 mg PO DAILY 03/30/22 04/27/24 History sennosides 8.6 mg capsule (senna) 8.6 mg PO DAILY PRN constipation 03/30/22 Unknown History fluticasone fur. 100 mcg-umeclid 1 inh inhalation DAILY SOB 05/23/22 04/27/24 History 62.5 mcg-vilant 25 mcg inhalat.powder (Trelegy Ellipta) hydralazine 25 mg tablet 25 mg PO TID Blood pressure 01/30/23 04/27/24 History gabapentin 300 mg capsule 300 mg PO Q12H pain 04/28/24 04/27/24 History lidocaine 5 % topical patch 2 patch topical DAILY PRN pain, 04/28/24 Unknown History moderate metoprolol succinate 50 mg 50 mg PO DAILY Blood pressure 04/28/24 04/27/24 History tablet,extended release 24 hr tirzepatide 2.5 mg/0.5 mL See Rx Instructions subcut 04/28/24 04/26/24 History subcutaneous pen injector .COMPLEX Diabetes (Mounjaro) Held on 05/02/24. Instructions: On hold while on unit venlafaxine 75 mg capsule,extended 75 mg PO DAILY Depression 04/28/24 04/27/24 History release 24 hr rivaroxaban 10 mg tablet (Xarelto) 10 mg PO DINNER Anticoagulant 26 05/02/24 05/20/24 Rx days #0 tabs acetaminophen 325 mg tablet 325 mg PO ONCE PRN fever or pain 05/12/24 Unknown History (Tylenol) Allergy/AdvReac Type Severity Reaction Status Date / Time levofloxacin (From Levaquin) Allergy Hives Verified 05/12/24 09:01 Sulfa (Sulfonamide Allergy Hives Verified 05/12/24 09:01 Antibiotics) Opioids - Morphine Analogues AdvReac Intermediate Other Verified 05/12/24 09:01 (narcotics) Family History Sister Breast cancer Other Heart disease Prostate cancer Surgical History History of hip surgery S/P hysterectomy History of appendectomy History of cholecystectomy Social History household members: none number of children: 2 Smoking Status: Former smoker alcohol intake: never substance use type: does not use additional social history: Lives alone in a house in [facility] Review of Systems ROS Unobtainable: due to encephalopathy Vital Signs Vital Signs Vital Signs: 05/21/24 13:52 05/21/24 14:02 05/21/24 14:45 Temperature 95.8 F L Temperature Source Temporal Pulse Rate 95 94 91 Respiratory Rate 26 H 18 13 Blood Pressure 120/63 122/76 H 122/81 H Blood Pressure Mean 82 91 94 Pulse Ox 97 97 99 Oxygen Delivery Method Nasal Cannula Nasal Cannula Oxygen Flow Rate (L/min) 2 2 05/21/24 16:00 05/21/24 16:15 05/21/24 16:30 Temperature Temperature Source Pulse Rate 90 95 97 Respiratory Rate 12 20 H 14 Blood Pressure 126/83 H 120/77 Blood Pressure Mean 96 89 Pulse Ox 99 99 Oxygen Delivery Method Oxygen Flow Rate (L/min) 05/21/24 16:55 Temperature 96.7 F L Temperature Source Pulse Rate 97 Respiratory Rate 14 Blood Pressure 142/94 H Blood Pressure Mean 110 Pulse Ox 99 Oxygen Delivery Method Oxygen Flow Rate (L/min) Weight Weight: 269 lb 13.533 oz Body Mass Index (BMI) 49.3 Physical Exam Const Constitutional Narrative: Class III obesity. Orientation / Consciousness: confused, disoriented and lethargic HEENT normocephalic and head/scalp atraumatic HEENT Narrative: dry oral mucosa Eyes PERRL, EOMs intact bilaterally and conjunctivae normal Neck no lymphadenopathy and supple Resp Resp Narrative: Mildly diminished breath sounds bibasilarly. Few crackles. No wheezing. On 2 L of oxygen. Cardio regular rate, regular rhythm, S1 normal heart sound, S2 normal heart sound and no murmurs GI normal to inspection, nondistended, normoactive bowel sounds, soft to palpation, non-tender and non-distended Extremity normal to inspection, full ROM and no clubbing, cyanosis or edema Extremity Narrative: Intact dressing over the right hip. Neuro Neuro Narrative: Patient very lethargic and minimally responsive. She is moans in response to voice. Moves all extremities spontaneously. Results Lab / Micro Data 05/21/24 14:37 05/21/24 14:37 Labs: Laboratory Results - last 24 hr 05/21/24 14:37: WBC 9.5, RBC 2.81 L, Hgb 9.0 L, Hct 27.3 L, MCV 97.2, MCH 32.0, MCHC 33.0, RDW Std Deviation 55.8 H, RDW Coeff of Yoel 15.8 H, Plt Count 309, MPV 9.6, Immature Gran % (Auto) 0.700, Neut % (Auto) 80.4 H, Lymph % (Auto) 10.9 L, [place] % (Auto) 6.2, Eos % (Auto) 1.3, Baso % (Auto) 0.5, Absolute Neuts (auto) 7.6, Absolute Lymphs (auto) 1.03, Nucleated RBC % 0, Sodium 128 L, Potassium 4.8, Chloride 94 L, Carbon Dioxide 19.9 L, Anion Gap 14, BUN 53 H, Creatinine 2.06 H, Estim Creat Clear Calc 27.17 L, Est GFR (MDRD) Non-Af 24 L, BUN/Creatinine Ratio 25.6 H, Glucose 170 H, Calcium 10.4, Total Bilirubin 0.34, AST 20, ALT 20, Alkaline Phosphatase 139 H, Total Protein 7.0, Albumin 3.9, Globulin 3.1, Albumin/Globulin Ratio 1.2 Micro: Microbiology 05/21/24 14:36 Mucosa - Nose SARS-CoV-2, Influenza & RSV (PCR) - Final ABG Data ABG results: ABG 05/21/24 14:50 Specimen Type MARY Sample Site Not entered O2 % 3.0 VBG pH 7.39 VBG pO2 65 H VBG HCO3 21 L VBG Total CO2 22 L VBG O2 Sat (Calc) 93 H VBG Base Excess -5 L POC Mix VBG pCO2 Pt Tmp 34.1 L O2 Delivery Device Cannula Imaging Radiology Impression Brain CT 05/21/24 14:55 IMPRESSION: Brain atrophy as described. Stable encephalomalacia in the right temporal parietal lobes suggestive of prior ischemic insult. Reading Location: [id number] Chest X-Ray 05/21/24 15:15 IMPRESSION: Right midlung infiltrate is suspected. Can not exclude left lower lobe infiltrate. Cardiomegaly. Reading Location: [facility] Assessment & Plan Assessment/Plan (1) Hyponatremia: (2) Acute alteration in mental status: (3) Pneumonia: PLAN: Plan <del>#</del>Acute encephalopathy likely due to aspiration pneumonia and hyponatremia Admits to [facility] Chest x-ray shows right midlung infiltrate. Left lower lobe infiltrate cannot be excluded. There is also cardiomegaly. Patient's respiratory panel is negative. She has been treated for UTI due to Klebsiella in the TCU. Patient minimally responsive. CT of the brain showed no acute intracranial pathology. VBG done showed no evidence of hypercapnia. Started on IV Unasyn. Keep n.p.o. and get speech therapy consults. Hydrate gently with IV fluid normal saline at 125 cc/h x 2 bags. Titrate oxygen as needed to maintain saturation above 90%. #Hyponatremia: Sodium is 128. Likely due to dehydration from decreased intake. Hydrate with IV fluid normal saline as mentioned above. Trend sodium. If it does not improve with threshold to consult nephrology. #Hypertension: On hydralazine and metoprolol #Type 2 diabetes mellitus: Hold Lantus 60 units daily as patient is NPO. Insulin sliding scale. Accu-Cheks every 6 hourly as she is NPO. Hold Mounjaro also. #Hyperlipidemia: On statin DVT prophylaxis: already on xarelto as DVT prophylaxis for hip surgery Code status: DNRCCA no intubation Patient's son counseled extensively about different types of CODE STATUS including full code, DNR CCA and DNR CCA. Patient 's elects for her to be DNRCCA no intubation, which is what her code status was in the TCU. Total [id number] time 17 minutes. # Charges/Coding Visit Charges Inpatient E&M: 09289 Init Hosp L3 Procedures Hospitalists Procedures: 55208 Advncd Care Plan 30 Min
[2024-05-21] MEDS: Ceftriaxone 2 GM in 0.9% Normal Saline (50mL MB+) 50 ML IV (17:11)
[2024-05-21 17:23] LABS: Red Blood Cells-Urine 0-5 SEEN /hpf (0-5); Squamous Epithelial Cells - UA 0-5 SEEN /hpf (5-10)
[2024-05-21] MEDS: Azithromycin 500 MG in 0.9% Normal Saline (250mL Bag) 250 ML 255 MG IV (18:40)
[2024-05-21] MEDS: 0.9% Normal Saline (100mL Bag) 100 ML 15 ML IV (18:46)
[2024-05-21] MEDS: 0.9% Normal Saline (1000mL) 1,000 ML 125 ML IV (19:23)
[2024-05-21] MEDS: Ampicillin/Sulbactam 3 GM in 0.9% Normal Saline (100mL MB+) 100 ML IV (21:22)
[2024-05-21] MEDS: Insulin Lispro 100 UNIT/ML INSULN.PEN SC (21:40)
[2024-05-21 22:37] LABS: Bedside Glucose 235 mg/dL (74-106)
[2024-05-22] VITALS (12 sets, daily range): BP systolic 104–147; BP diastolic 58–102; PULSE 59–98; RESP 16–20; TEMP 36.3–36.9; O2SAT 94–100
[2024-05-22] MEDS: Insulin Lispro 100 UNIT/ML INSULN.PEN SC (01:08)
[2024-05-22 01:48] LABS: Bedside Glucose 163 mg/dL (74-106)
[2024-05-22 06:42] LABS: Bedside Glucose 112 mg/dL (74-106)
[2024-05-22 07:00] LABS: Absolute Lymphocyte Count 1.11 X10^3/uL (0.83-4.51); Absolute Neutrophil Count 6.8 X10^3/uL (2.0-7.7); Basophil# 0.04 X10^3/uL; Basophil% 0.5 % (0-1); Eosinophil# 0.03 X10^3/uL; Eosinophils% 0.3 % (0-5); Hematocrit 26.2 % (37-47); Hemoglobin 8.5 g/dL (12.0-15.0); Lymphocyte # 1.11 X10^3/ul (0.83-4.51); Lymphocyte % 12.9 % (19-41); Mean Corp Hgb Conc 32.4 g/dL (32-36); Mean Corpuscular Hgb 32.4 pg (27.0-32.0); Mean Platelet Vol. 9.3 fl (6.2-12.0); Monocyte# 0.54 X10^3/uL; Monocyte% 6.3 % (0-10); NRBC Flagged by Analyzer 0 % (0-5); Neutrophil # 6.83 X10^3/uL (2.7-7.7); Neutrophil % 79.3 % (47-70); Platelet Count 260 K/mm3 (150-450); RBC Distribution Width CV 15.5 % (11.6-14.6); Red Blood Count 2.62 M/mm3 (4.2-5.4); White Blood Count 8.6 K/mm3 (4.4-11.0)
[2024-05-22] MEDS: 0.9% Normal Saline (1000mL) 1,000 ML 125 ML IV (07:02)
[2024-05-22] MEDS: Budesonide Respules 0.5 MG/2 ML AMPUL.NEB. INHALATION ×2 (07:10→19:51)
[2024-05-22] MEDS: Ipratropium/Albuterol Sulfate 3 ML AMPUL.NEB INHALATION ×3 (07:10→19:51)
[2024-05-22] MEDS: Lidocaine 5% Patch 2 PATCH TOPICAL (07:42)
[2024-05-22 08:28] LABS: Anion Gap 16 (5-15); BUN 50 mg/dL (4-19); BUN/Creat Ratio 27.1 RATIO (10-20); Calcium,Total 9.4 mg/dL (7.6-11.0); Carbon Dioxide 17.2 mmol/L (21.0-32.0); Chloride 100 mmol/L (98-108); Creatinine, Serum 1.85 mg/dL (0.70-1.20); EST Glomerular Filtration Rate 27 (>60); Estimated Creatinine Clearance 30.26 ml/min (50-250); Glucose 111 mg/dL (70-99); Potassium 4.3 mmol/L (3.3-5.1); Sodium Level 133 mmol/L (133-145)
[2024-05-22] MEDS: Ketorolac 15 MG/ML Vial IV (08:34)
[2024-05-22] MEDS: 0.9% Saline Lock 10 ML Syringe IV (08:34)
--- NOTE | 2024-05-22 10:01 | CASEMGMT ---
Social Work- SW collaborated with TCU admissions who reports that pt is able to return. SW to reach out to TCU on bed availability for return when discharge ready. Plan: TCU; skilled level of care JAG Dacosta
--- NOTE | 2024-05-22 10:18 | PN_ITS ---
Subjective Subjective Patient seen and examined. She is more awake and alert and communicative today. She was complaining of pain in her right hip with her current pain meds being inadequate. Review of systems is otherwise negative. Objective Data Objective Data Vital Signs: Vital Signs Temp Pulse Resp BP Pulse Ox O2 Del Method O2 Flow Rate 97.8 F 87 17 105/61 94 Room Air 2 05/22/24 07:54 05/22/24 07:54 05/22/24 07:54 05/22/24 07:54 05/22/24 07:54 05/22/24 07:54 05/22/24 05:29 Oxygen Flow Rate (L/min) 2 Oxygen Delivery Method Room Air Weight: 269 lb 13.533 oz Body Mass Index (BMI) 49.3 Intake & Output: Intake and Output for Last 24 Hours 05/20/24 05/21/24 05/22/24 23:59 23:59 23:59 Intake Total 417 / 417 1100 / 1100 Output Total 250 / 250 750 / 750 Balance 167 / 167 350 / 350 Lab / Micro Data 05/22/24 06:34 05/22/24 06:34 Labs: Laboratory Results - last 24 hr 05/21/24 14:37: WBC 9.5, RBC 2.81 L, Hgb 9.0 L, Hct 27.3 L, MCV 97.2, MCH 32.0, MCHC 33.0, RDW Std Deviation 55.8 H, RDW Coeff of Yoel 15.8 H, Plt Count 309, MPV 9.6, Immature Gran % (Auto) 0.700, Neut % (Auto) 80.4 H, Lymph % (Auto) 10.9 L, [place] % (Auto) 6.2, Eos % (Auto) 1.3, Baso % (Auto) 0.5, Absolute Neuts (auto) 7.6, Absolute Lymphs (auto) 1.03, Nucleated RBC % 0, Sodium 128 L, Potassium 4.8, Chloride 94 L, Carbon Dioxide 19.9 L, Anion Gap 14, BUN 53 H, Creatinine 2.06 H, Estim Creat Clear Calc 27.17 L, Est GFR (MDRD) Non-Af 24 L, B UN/Creatinine Ratio 25.6 H, Glucose 170 H, Calcium 10.4, Total Bilirubin 0.34, AST 20, ALT 20, Alkaline Phosphatase 139 H, Total Protein 7.0, Albumin 3.9, Globulin 3.1, Albumin/Globulin Ratio 1.2 05/21/24 16:19: Urine Color Yellow, Urine Clarity Sl. Cloudy, Urine pH 5.0, Ur Specific [place] 1.020, Urine Protein 30 H, Urine Glucose (UA) Normal, Urine Ketones Negative, Urine Occult Blood Negative, Urine Nitrite Negative, Urine Bilirubin Negative, Urine Urobilinogen Normal, Ur Leukocyte Esterase Negative, Urine RBC 0-5 SEEN, Urine WBC 0 SEEN, Ur Squamous Epith Cells 0-5 SEEN, Urine Bacteria 0 SEEN, Urine Mucus 0 SEEN 05/21/24 21:40: POC Glucose 235 H 05/22/24 01:08: POC Glucose 163 H 05/22/24 05:24: POC Glucose 112 H 05/22/24 06:34: WBC 8.6, RBC 2.62 L, Hgb 8.5 L, Hct 26.2 L, MCV 100.0 H, MCH 32.4 H, MCHC 32.4, RDW Std Deviation 56.0 H, RDW Coeff of Yoel 15.5 H, Plt Count 260, MPV 9.3, Immature Gran % (Auto) 0.700, Neut % (Auto) 79.3 H, Lymph % (Auto) 12.9 L, [place] % (Auto) 6.3, Eos % (Auto) 0.3, Baso % (Auto) 0.5, Absolute Neuts (auto) 6.8, Absolute Lymphs (auto) 1.11, Nucleated RBC % 0, Sodium 133, Potassium 4.3, Chloride 100, Carbon Dioxide 17.2 L, Anion Gap 16 H, BUN 50 H, C reatinine 1.85 H, Estim Creat Clear Calc 30.26 L, Est GFR (MDRD) Non-Af 27 L, B UN/Creatinine Ratio 27.1 H, Glucose 111 H, Calcium 9.4 Micro: Microbiology 05/21/24 14:36 Mucosa - Nose SARS-CoV-2, Influenza & RSV (PCR) - Final ABG Data ABG results: ABG 05/21/24 14:50 Specimen Type MARY Sample Site Not entered O2 % 3.0 VBG pH 7.39 VBG pO2 65 H VBG HCO3 21 L VBG Total CO2 22 L VBG O2 Sat (Calc) 93 H VBG Base Excess -5 L POC Mix VBG pCO2 Pt Tmp 34.1 L O2 Delivery Device Cannula Radiography Diagnostic Testing: Radiology Impression Brain CT 05/21/24 14:55 IMPRESSION: Brain atrophy as described. Stable encephalomalacia in the right temporal parietal lobes suggestive of prior ischemic insult. Reading Location: [facility] Chest X-Ray 05/21/24 15:15 IMPRESSION: Right midlung infiltrate is suspected. Can not exclude left lower lobe infiltrate. Cardiomegaly. Reading Location: [place] [address] Physical Exam Const alert and oriented x3 Constitutional Narrative: Class III obesity. in moderate distress due to pain. HEENT normocephalic, head/scalp atraumatic, moist oral mucous membranes and oropharynx normal Eyes PERRL, EOMs intact bilaterally and conjunctivae normal Neck no lymphadenopathy and supple Lymph Lymphatic: no lymphadenopathy noted Resp Resp Narrative: Mildly diminished breath sounds bibasilarly. Few crackles. No wheezing. now on room air. Cardio regular rate, regular rhythm, S1 normal heart sound, S2 normal heart sound and no murmurs GI normal to inspection, nondistended, normoactive bowel sounds and soft to palpation Extremity normal to inspection, full ROM and no clubbing, cyanosis or edema Extremity Narrative: Intact dressing over the right hip. Skin General Skin Exam: no breakdown Neuro CN's II-XII intact bilaterally, no focal motor deficits and no sensory deficits noted Motor Exam: general weakness Psych thought process normal Psych Narrative: anxious due to pain Activity / Motor Behavior: restless Mood & Affect: anxious Assessment & Plan Assessment/Plan (1) Hyponatremia: (2) Acute alteration in mental status: (3) Pneumonia: PLAN: Plan -#-Acute encephalopathy likely due to aspiration pneumonia and hyponatremia * patient much more alert and communicative today. * Chest x-ray shows right midlung infiltrate. Left lower lobe infiltrate cannot be excluded. There is also cardiomegaly. * respiratory panel negative. She has been treated for UTI due to Klebsiella in the TCU. * Patient minimally responsive. CT of the brain showed no acute intracranial pathology. * VBG done showed no evidence of hypercapnia. * on IV unasyn. Speech therapy on board due to concern for aspiration. * Hydrate gently with IV fluid normal saline at 125 cc/h x 2 bags. * Titrate oxygen as needed to maintain saturation above 90%. * #Hyponatremia: * Was 128 on admission, now 133. * improved. Will monitor #CKD IV * Cr was 2.06 on admission, with her baseline Cr being 1.8-2 * Cr is 1.85 today. will monitor * #Hypertension: On hydralazine and metoprolol #Type 2 diabetes mellitus: * was NPO but has been placed on a diet by speech therapy afer review * will resume lantus 60 units daily. ISS. Accuchecks ACHS * #Hyperlipidemia: On statin DVT prophylaxis: already on xarelto as DVT prophylaxis for hip surgery Code status: DNRCCA no intubation * # Charges/Coding Visit Charges Inpatient E&M: 86445 Subs Hosp L2
[2024-05-22] MEDS: Ampicillin/Sulbactam 3 GM in 0.9% Normal Saline (100mL MB+) 100 ML IV ×2 (11:03→23:00)
[2024-05-22] MEDS: Venlafaxine XR 75 MG Capsule PO (11:09)
[2024-05-22] MEDS: Multivitamin (Healthy Eyes) Capsule 1 CAP PO (11:09)
[2024-05-22] MEDS: Calcitriol 0.25 MCG Capsule 0.5 MCG PO (11:10)
[2024-05-22] MEDS: Metoprolol(XL)Succ 50 MG Tablet PO (11:10)
[2024-05-22] MEDS: Furosemide 20 MG Tablet PO (11:10)
[2024-05-22 11:11] LABS: Bedside Glucose 93 mg/dL (74-106)
[2024-05-22] MEDS: oxyCODONE 5 MG Tablet PO (11:13)
[2024-05-22] MEDS: Acetaminophen 325 MG Tablet 650 MG PO ×3 (11:14→23:03)
--- NOTE | 2024-05-22 13:18 | CASEMGMT ---
Social Work- SW spoke with bedside nurse to discuss conversation with TCU SW that pt has a history of becoming very emotional and behavioral when receiving pain medications. Per TCU SW, pt plan is undetermined, as pt has acceptance at [facility] and can discharge there for LTC vs TCU for skilled care. Pt son mentioned that he may be interested in hospice evaluation if pt medical condition does not improve. SW remains available to follow. JAG Dacosta
--- NOTE | 2024-05-22 13:21 | CASEMGMT ---
Social Work SW phoned son, Hardik, to follow up on DC plans. Inquired if son would like pt to return to TCU for ongoing therapy or transition to [facility] since that was the plan from TCU stay. SW educated pt can transfer under skilled Medicare benefit initially, so pt would not need to pay out of pocket until skilled services are done. Son explained he is not aware of her medical condition, as she is not doing well...and expected to get a call last night [that pt had ]. Son is not able to make a decision at this time. SW agreed and inquired of son wanted to discuss hospice services. Son stated he is planning to talk to the Dr to get further information, and see how pt does over the next 24 hours. SW agreed. Will continue to follow for DC planning assistance. - SW provided update to unit SW, and reiterated the importance of not having pt taking pain medication, as that induces her suicidal ideations, hallucinations and delusions. MS SW to update nursing. Eli Alexis RETAIL SALES TEAMMATE DIRECTOR [employer]ER [employer]
--- NOTE | 2024-05-22 14:51 | CHAPLAIN ---
Type of Pastoral Visit _x__ Initial Visit ___ Follow-up Visit ___ On-call Visit ___ General Patient Visit ___ Spiritual Assessment ___ Family Conference ___ Bereavement ___ Rapid Response ___ Code Blue ___ Other (describe below) Pastoral Care Referral From _x__ Patient _x__ Family ___ Nurse ___ Physician ___ E Commerce Director ___ White Goods Appliance Tech ___ Other (describe below) Sacrament/Intervention ___ Active listening ___ Anointing ___ Methodist ___ Bereavement ___ Communion ___ Agustina exploration ___ ___ Life review _x__ Prayer ___ Reconciliation ___ Sacrament of Sick _x__ Supportive presence ___ Wedding ___ Other (describe below) Pastoral Comments this patient was recently seen in [facility] and was moved to [facility]; son is with patient in the room; pt remembers this pillowcase cutter but is experiencing some confusion due to illness; offer of prayer is received; offer of support is given to patient and son; a phone call comes into room and the patient wishes to talk to her sister on the phone; son denied any further needs at this time
[2024-05-22] MEDS: Rivaroxaban 10 MG Tablet PO (16:03)
[2024-05-22 16:32] LABS: Bedside Glucose 112 mg/dL (74-106)
[2024-05-22] MEDS: Atorvastatin Calcium 20 MG Tablet PO (23:02)
[2024-05-22] MEDS: MELATONIN 10 MG TABLET PO (23:02)
[2024-05-22] MEDS: hydrALAZINE 25 MG Tablet PO (23:21)
[2024-05-23] VITALS (10 sets, daily range): BP systolic 129–152; BP diastolic 67–97; PULSE 69–102; RESP 14–22; TEMP 36.3–36.4; O2SAT 97–99
[2024-05-23 00:07] LABS: Bedside Glucose 94 mg/dL (74-106)
[2024-05-23] MEDS: Acetaminophen 325 MG Tablet 650 MG PO (06:08)
[2024-05-23] MEDS: hydrALAZINE 25 MG Tablet PO ×3 (06:08→22:33)
[2024-05-23] MEDS: MENTHOL 226.8 GM JAR 1 APPLIC TOPICAL (06:09)
[2024-05-23 06:44] LABS: Bedside Glucose 104 mg/dL (74-106)
[2024-05-23] MEDS: Budesonide Respules 0.5 MG/2 ML AMPUL.NEB. INHALATION ×2 (07:19→18:47)
[2024-05-23] MEDS: Ipratropium/Albuterol Sulfate 3 ML AMPUL.NEB INHALATION ×2 (07:19→18:47)
[2024-05-23 08:16] LABS: Absolute Lymphocyte Count 1.22 X10^3/uL (0.83-4.51); Absolute Neutrophil Count 5.8 X10^3/uL (2.0-7.7); Basophil# 0.06 X10^3/uL; Basophil% 0.8 % (0-1); Eosinophil# 0.18 X10^3/uL; Eosinophils% 2.3 % (0-5); Hematocrit 27.2 % (37-47); Hemoglobin 8.8 g/dL (12.0-15.0); Lymphocyte # 1.22 X10^3/ul (0.83-4.51); Lymphocyte % 15.6 % (19-41); Mean Corp Hgb Conc 32.4 g/dL (32-36); Mean Corpuscular Volume 98.9 fL (81-99); Mean Platelet Vol. 9.6 fl (6.2-12.0); Monocyte# 0.52 X10^3/uL; Monocyte% 6.7 % (0-10); NRBC Flagged by Analyzer 0 % (0-5); Neutrophil # 5.77 X10^3/uL (2.7-7.7); Platelet Count 274 K/mm3 (150-450); RBC Distribution Width CV 15.7 % (11.6-14.6); RBC Distribution Width SD 55.4 fl (35.1-43.9); Red Blood Count 2.75 M/mm3 (4.2-5.4); White Blood Count 7.8 K/mm3 (4.4-11.0)
[2024-05-23 09:46] LABS: Anion Gap 16 (5-15); BUN 44 mg/dL (4-19); BUN/Creat Ratio 23.4 RATIO (10-20); Calcium,Total 9.7 mg/dL (7.6-11.0); Carbon Dioxide 16.5 mmol/L (21.0-32.0); Chloride 98 mmol/L (98-108); Creatinine, Serum 1.88 mg/dL (0.70-1.20); EST Glomerular Filtration Rate 27 (>60); Estimated Creatinine Clearance 29.77 ml/min (50-250); Glucose 118 mg/dL (70-99); Potassium 4.3 mmol/L (3.3-5.1); Sodium Level 130 mmol/L (133-145)
[2024-05-23] MEDS: Calcitriol 0.25 MCG Capsule 0.5 MCG PO (10:41)
[2024-05-23] MEDS: Furosemide 20 MG Tablet PO (10:42)
[2024-05-23] MEDS: Multivitamin (Healthy Eyes) Capsule 1 CAP PO (10:42)
[2024-05-23] MEDS: Venlafaxine XR 75 MG Capsule PO (10:42)
[2024-05-23] MEDS: Metoprolol(XL)Succ 50 MG Tablet PO (10:43)
[2024-05-23] MEDS: Nystatin Powder 15gm Bottle 1 APPLIC TOPICAL ×2 (10:43→22:34)
[2024-05-23] MEDS: Menthol/Lanolin/Calamine/Znox 113 GM Tube 1 APPLIC TOPICAL ×2 (10:44→22:34)
[2024-05-23] MEDS: Ampicillin/Sulbactam 3 GM in 0.9% Normal Saline (100mL MB+) 100 ML IV ×2 (10:48→22:33)
[2024-05-23] MEDS: Insulin Lispro 100 UNIT/ML INSULN.PEN SC ×3 (12:55→22:42)
[2024-05-23 13:20] LABS: Bedside Glucose 189 mg/dL (74-106)
[2024-05-23] MEDS: Insulin Glargine-YFGN 100 UNIT/ML Pen 60 UNIT SC (13:35)
--- NOTE | 2024-05-23 14:13 | PN_ITS ---
Subjective Subjective Patient seen and examined. She comes in complaining of pain in her right hip. Review of systems otherwise negative. She has otherwise remained hemodynamically stable. Objective Data Objective Data Vital Signs: Vital Signs Temp Pulse Resp BP Pulse Ox O2 Del Method O2 Flow Rate 97.6 F L 101 H 20 H 139/77 H 98 Room Air 2 05/23/24 06:10 05/23/24 12:54 05/23/24 07:19 05/23/24 06:10 05/23/24 07:19 05/23/24 07:19 05/22/24 05:29 Oxygen Flow Rate (L/min) 2 Oxygen Delivery Method Room Air Weight: 269 lb 13.533 oz Body Mass Index (BMI) 49.3 Intake & Output: Intake and Output for Last 24 Hours 05/21/24 05/22/24 05/23/24 23:59 23:59 23:59 Intake Total 417 / 417 2324 / 2324 112 / 112 Output Total 250 / 250 1550 / 1550 Balance 167 / 167 774 / 774 112 / 112 Lab / Micro Data 05/23/24 06:46 05/23/24 07:42 Labs: Laboratory Results - last 24 hr 05/22/24 16:11: POC Glucose 112 H 05/22/24 23:24: POC Glucose 94 05/23/24 06:05: POC Glucose 104 05/23/24 06:46: WBC 7.8, RBC 2.75 L, Hgb 8.8 L, Hct 27.2 L, MCV 98.9, MCH 32.0, MCHC 32.4, RDW Std Deviation 55.4 H, RDW Coeff of Yoel 15.7 H, Plt Count 274, MPV 9.6, Immature Gran % (Auto) 0.600, Neut % (Auto) 74.0 H, Lymph % (Auto) 15.6 L, [place] % (Auto) 6.7, Eos % (Auto) 2.3, Baso % (Auto) 0.8, Absolute Neuts (auto) 5.8, Absolute Lymphs (auto) 1.22, Nucleated RBC % 0 05/23/24 07:42: Sodium 130 L, Potassium 4.3, Chloride 98, Carbon Dioxide 16.5 L, Anion Gap 16 H, BUN 44 H, Creatinine 1.88 H, Estim Creat Clear Calc 29.77 L, Est GFR (MDRD) Non-Af 27 L, BUN/Creatinine Ratio 23.4 H, Glucose 118 H, Calcium 9.7 05/23/24 12:52: POC Glucose 189 H Micro: Microbiology 05/21/24 14:36 Mucosa - Nose SARS-CoV-2, Influenza & RSV (PCR) - Final Physical Exam Const alert and oriented x3 Constitutional Narrative: Class III obesity. in moderate distress due to pain. HEENT normocephalic, head/scalp atraumatic, moist oral mucous membranes and oropharynx normal Eyes PERRL, EOMs intact bilaterally and conjunctivae normal Neck no lymphadenopathy and supple Lymph Lymphatic: no lymphadenopathy noted Resp Resp Narrative: Mildly diminished breath sounds bibasilarly. Few crackles. No wheezing.Remains on room air. Cardio regular rate, regular rhythm, S1 normal heart sound, S2 normal heart sound and no murmurs GI normal to inspection, nondistended, normoactive bowel sounds, soft to palpation, non-tender and non-distended Extremity normal to inspection, full ROM and no clubbing, cyanosis or edema Skin General Skin Exam: no breakdown Neuro CN's II-XII intact bilaterally, no focal motor deficits and no sensory deficits noted Motor Exam: general weakness Psych Psych Narrative: anxious due to pain Activity / Motor Behavior: restless Mood & Affect: anxious Assessment & Plan Assessment/Plan (1) Hyponatremia: (2) Acute alteration in mental status: (3) Pneumonia: PLAN: Plan -#-Acute encephalopathy likely due to aspiration pneumonia and hyponatremia * encephalopathy has resolved. Patient remains alert and communicative. * Chest x-ray shows right midlung infiltrate. Left lower lobe infiltrate cannot be excluded. There is also cardiomegaly. * respiratory panel negative. She has been treated for UTI due to Klebsiella in the TCU. * CT of the brain showed no acute intracranial pathology. * on IV unasyn. Speech therapy on board due to concern for aspiration. * Hydrate gently with IV fluid normal saline at 125 cc/h x 2 bags. * Titrate oxygen as needed to maintain saturation above 90%. * #Hyponatremia: * Sodium is slightly down to 130 today from 133 yesterday. * Will hydrate gently with IV fluids and trend sodium * #CKD IV * Cr was 2.06 on admission, with her baseline Cr being 1.8-2 * Cr is 1.88 today. Cr back at baseline. Will monitor. * #Hypertension: On hydralazine and metoprolol #Type 2 diabetes mellitus: * on lantus 60 units daily. ISS. Accuchecks ACHS * #Hyperlipidemia: On statin #History of recent right hip surgery * Still complains of pain. Will order blue gel to help with the pain. She is allergic to opioids. * And p.o. Tylenol as needed. DVT prophylaxis: already on xarelto as DVT prophylaxis for hip surgery Code status: DNRCCA no intubation * Disposition: Anticipate DC back to TCU tomorrow once sodium has improved. # Charges/Coding Visit Charges Inpatient E&M: 73421 Subs Hosp L2
--- NOTE | 2024-05-23 15:20 | CASEMGMT ---
MARI spoke with patient's son Hardik. Hardik said they decided they want patient to go to [facility]. SW will follow up with [facility] on Saturday to make sure they are able to take patient earlier than previously expected. MARI notified physician. Dina Chavira VINYL HANGER CARL
[2024-05-23] MEDS: 0.9% Normal Saline (1000mL) 1,000 ML 100 ML IV (16:35)
[2024-05-23] MEDS: Rivaroxaban 10 MG Tablet PO (16:50)
[2024-05-23] MEDS: Baclofen 10 MG Tablet 5 MG PO (16:50)
[2024-05-23 19:15] LABS: Bedside Glucose 172 mg/dL (74-106)
[2024-05-23] MEDS: Gabapentin 300 MG Capsule PO (22:33)
[2024-05-23] MEDS: MELATONIN 10 MG TABLET PO (22:33)
[2024-05-23] MEDS: Atorvastatin Calcium 20 MG Tablet PO (22:34)
[2024-05-23 23:17] LABS: Bedside Glucose 214 mg/dL (74-106)
[2024-05-24] VITALS (10 sets, daily range): BP systolic 115–132; BP diastolic 54–86; PULSE 97–106; RESP 16–22; TEMP 36.2–36.5; O2SAT 93–97
[2024-05-24] MEDS: 0.9% Normal Saline (1000mL) 1,000 ML 100 ML IV (01:58)
[2024-05-24] MEDS: Acetaminophen 325 MG Tablet 650 MG PO ×3 (04:54→21:27)
[2024-05-24] MEDS: hydrALAZINE 25 MG Tablet PO ×3 (04:54→21:18)
[2024-05-24 05:17] LABS: Absolute Lymphocyte Count 1.64 X10^3/uL (0.83-4.51); Basophil# 0.05 X10^3/uL; Basophil% 0.5 % (0-1); Eosinophil# 0.07 X10^3/uL; Eosinophils% 0.7 % (0-5); Hematocrit 26.9 % (37-47); Hemoglobin 8.8 g/dL (12.0-15.0); Lymphocyte # 1.64 X10^3/ul (0.83-4.51); Lymphocyte % 17.4 % (19-41); Mean Corp Hgb Conc 32.7 g/dL (32-36); Mean Corpuscular Hgb 32.5 pg (27.0-32.0); Mean Corpuscular Volume 99.3 fL (81-99); Mean Platelet Vol. 9.4 fl (6.2-12.0); Monocyte# 0.65 X10^3/uL; Monocyte% 6.9 % (0-10); NRBC Flagged by Analyzer 0 % (0-5); Neutrophil # 6.96 X10^3/uL (2.7-7.7); Neutrophil % 73.9 % (47-70); Platelet Count 289 K/mm3 (150-450); RBC Distribution Width SD 56.1 fl (35.1-43.9); Red Blood Count 2.71 M/mm3 (4.2-5.4); White Blood Count 9.4 K/mm3 (4.4-11.0)
[2024-05-24 05:56] LABS: Anion Gap 13 (5-15); BUN 39 mg/dL (4-19); BUN/Creat Ratio 21.8 RATIO (10-20); Calcium,Total 9.5 mg/dL (7.6-11.0); Carbon Dioxide 18.3 mmol/L (21.0-32.0); Chloride 98 mmol/L (98-108); Creatinine, Serum 1.79 mg/dL (0.70-1.20); EST Glomerular Filtration Rate 28 (>60); Estimated Creatinine Clearance 31.27 ml/min (50-250); Glucose 109 mg/dL (70-99); Potassium 3.9 mmol/L (3.3-5.1); Sodium Level 129 mmol/L (133-145)
[2024-05-24] MEDS: Budesonide Respules 0.5 MG/2 ML AMPUL.NEB. INHALATION ×2 (07:19→19:40)
[2024-05-24] MEDS: Ipratropium/Albuterol Sulfate 3 ML AMPUL.NEB INHALATION ×3 (07:19→19:40)
[2024-05-24] MEDS: Nystatin Powder 15gm Bottle 1 APPLIC TOPICAL ×2 (08:07→21:17)
[2024-05-24] MEDS: Multivitamin (Healthy Eyes) Capsule 1 CAP PO (08:07)
[2024-05-24] MEDS: Calcitriol 0.25 MCG Capsule 0.5 MCG PO (08:07)
[2024-05-24] MEDS: Furosemide 20 MG Tablet PO (08:07)
[2024-05-24] MEDS: Gabapentin 300 MG Capsule PO ×2 (08:07→21:17)
[2024-05-24] MEDS: Metoprolol(XL)Succ 50 MG Tablet PO (08:07)
[2024-05-24] MEDS: Venlafaxine XR 75 MG Capsule PO (08:07)
[2024-05-24] MEDS: Menthol/Lanolin/Calamine/Znox 113 GM Tube 1 APPLIC TOPICAL ×2 (08:08→21:17)
[2024-05-24 08:29] LABS: Bedside Glucose 112 mg/dL (74-106)
[2024-05-24] MEDS: Ampicillin/Sulbactam 3 GM in 0.9% Normal Saline (100mL MB+) 100 ML IV ×2 (10:33→21:19)
--- NOTE | 2024-05-24 10:48 | PCM.PROGNOTE ---
Subjective Subjective Patient seen and examined. She complained of having difficulty sleeping.Pain in her left hip is much better since she started on the baclofen and gabapentin overnight. Review of systems is otherwise negative. Objective Data Objective Data Vital Signs: Vital Signs Temp Pulse Resp BP Pulse Ox O2 Del Method O2 Flow Rate 97.7 F L 105 H 18 128/86 H 97 Room Air 2 05/24/24 08:05 05/24/24 08:07 05/24/24 08:05 05/24/24 08:05 05/24/24 08:05 05/24/24 10:00 05/22/24 05:29 Oxygen Flow Rate (L/min) 2 Oxygen Delivery Method Room Air Weight: 269 lb 13.533 oz Body Mass Index (BMI) 49.3 Intake & Output: Intake and Output for Last 24 Hours 05/22/24 05/23/24 05/25/24 23:59 23:59 00:59 Intake Total 2324 / 2324 1294 / 1294 1188.33 / 1188.33 Output Total 1550 / 1550 400 / 400 Balance 774 / 774 894 / 894 1188.33 / 1188.33 Lab / Micro Data 05/24/24 04:50 05/24/24 04:50 Labs: Laboratory Results - last 24 hr 05/23/24 12:52: POC Glucose 189 H 05/23/24 16:51: POC Glucose 172 H 05/23/24 22:41: POC Glucose 214 H 05/24/24 04:50: WBC 9.4, RBC 2.71 L, Hgb 8.8 L, Hct 26.9 L, MCV 99.3 H, MCH 32.5 H, MCHC 32.7, RDW Std Deviation 56.1 H, RDW Coeff of Yoel 16.0 H, Plt Count 289, MPV 9.4, Immature Gran % (Auto) 0.600, Neut % (Auto) 73.9 H, Lymph % (Auto) 17.4 L, [place] % (Auto) 6.9, Eos % (Auto) 0.7, Baso % (Auto) 0.5, Absolute Neuts (auto) 7.0, Absolute Lymphs (auto) 1.64, Nucleated RBC % 0, Sodium 129 L, Potassium 3.9, Chloride 98, Carbon Dioxide 18.3 L, Anion Gap 13, BUN 39 H, Creatinine 1.79 H, Estim Creat Clear Calc 31.27 L, Est GFR (MDRD) Non-Af 28 L, BUN/Creatinine Ratio 21.8 H, Glucose 109 H, Calcium 9.5 05/24/24 07:59: POC Glucose 112 H Micro: Microbiology 05/21/24 17:02 Blood Culture (Wb) - Arm Left Blood Culture - Preliminary No growth in 48 hours. 05/21/24 16:39 Blood Culture (Wb) - Right Forearm Blood Culture - Preliminary No growth in 48 hours. 05/21/24 14:36 Mucosa - Nose SARS-CoV-2, Influenza & RSV (PCR) - Final Physical Exam Const alert and oriented x3 Constitutional Narrative: Class III obesity. General Appearance: cooperative HEENT normocephalic, head/scalp atraumatic, moist oral mucous membranes and oropharynx normal Eyes PERRL, EOMs intact bilaterally and conjunctivae normal Neck no lymphadenopathy and supple Lymph Lymphatic: no lymphadenopathy noted Resp Resp Narrative: Mildly diminished breath sounds bibasilarly. Few crackles. No wheezing.Remains on room air. Cardio regular rate, regular rhythm, S1 normal heart sound, S2 normal heart sound and no murmurs GI normal to inspection, nondistended, normoactive bowel sounds, soft to palpation, non-tender and non-distended Extremity normal to inspection, full ROM and no clubbing, cyanosis or edema Extremity Narrative: Intact dressing over the right hip. Skin General Skin Exam: no breakdown Neuro CN's II-XII intact bilaterally, no focal motor deficits and no sensory deficits noted Motor Exam: general weakness Psych thought process normal Psych Narrative: anxious due to pain Mood & Affect: flat affect Assessment & Plan Assessment/Plan (1) Hyponatremia: (2) Acute alteration in mental status: (3) Pneumonia: PLAN: Plan <del>#</del>Acute encephalopathy likely due to aspiration pneumonia and hyponatremia encephalopathy has resolved. Patient remains alert and communicative. Chest x-ray shows right midlung infiltrate. Left lower lobe infiltrate cannot be excluded. There is also cardiomegaly. respiratory panel negative. She has been treated for UTI due to Klebsiella in the TCU. CT of the brain showed no acute intracranial pathology. on IV unasyn. Speech therapy on board due to concern for aspiration. blood cultures negative after 48 hours Titrate oxygen as needed to maintain saturation above 90%. switch to PO augmentin #Hyponatremia: Sodium today is 129. Encourage gentle hydration as patient responded to IVF initially. Will hydrate gently with IV fluids and trend sodium #CKD IV Cr was 2.06 on admission, with her baseline Cr being 1.8-2 Cr is 1.79 today. Will monitor. #Hypertension: On hydralazine and metoprolol #Type 2 diabetes mellitus: on lantus 60 units daily. ISS. Accuchecks ACHS #Hyperlipidemia: On statin #History of recent right hip surgery hip pain has improved baclofen and tizanidine added on which helped with pain. Also receiving blue gel, a topical pain gel which is helping with the pain. DVT prophylaxis: already on xarelto as DVT prophylaxis for hip surgery Code status: DNRCCA no intubation Disposition: family now wants her to go to [facility] instead of back to TCU. Awaiting placement. Charges/Coding Visit Charges Inpatient E&M: 04107 Subs Hosp L2
[2024-05-24] MEDS: Insulin Glargine-YFGN 100 UNIT/ML Pen 60 UNIT SC (11:36)
[2024-05-24] MEDS: Insulin Lispro 100 UNIT/ML INSULN.PEN SC ×2 (11:37→21:30)
[2024-05-24 11:56] LABS: Bedside Glucose 165 mg/dL (74-106)
[2024-05-24] MEDS: MENTHOL 226.8 GM JAR 1 APPLIC TOPICAL (15:20)
[2024-05-24] MEDS: Rivaroxaban 10 MG Tablet PO (16:18)
[2024-05-24 16:37] LABS: Bedside Glucose 141 mg/dL (74-106)
[2024-05-24] MEDS: MELATONIN 10 MG TABLET PO (21:17)
[2024-05-24] MEDS: Atorvastatin Calcium 20 MG Tablet PO (21:18)
[2024-05-24] MEDS: 0.9% Saline Lock 10 ML Syringe IV (21:18)
[2024-05-25] VITALS (9 sets, daily range): BP systolic 112–134; BP diastolic 63–81; PULSE 94–105; RESP 16–20; TEMP 36.4–36.7; O2SAT 94–100
[2024-05-25 03:53] LABS: Bedside Glucose 168 mg/dL (74-106)
[2024-05-25] MEDS: Acetaminophen 325 MG Tablet 650 MG PO ×2 (04:38→17:03)
[2024-05-25] MEDS: hydrALAZINE 25 MG Tablet PO ×2 (06:28→13:57)
[2024-05-25 06:49] LABS: Bedside Glucose 90 mg/dL (74-106)
[2024-05-25 07:00] LABS: Absolute Lymphocyte Count 1.36 X10^3/uL (0.83-4.51); Absolute Neutrophil Count 6.7 X10^3/uL (2.0-7.7); Basophil# 0.08 X10^3/uL; Basophil% 0.9 % (0-1); Eosinophil# 0.15 X10^3/uL; Eosinophils% 1.7 % (0-5); Hematocrit 27.3 % (37-47); Hemoglobin 8.9 g/dL (12.0-15.0); Lymphocyte # 1.36 X10^3/ul (0.83-4.51); Mean Corp Hgb Conc 32.6 g/dL (32-36); Mean Corpuscular Hgb 32.8 pg (27.0-32.0); Mean Corpuscular Volume 100.7 fL (81-99); Mean Platelet Vol. 9.7 fl (6.2-12.0); Monocyte# 0.72 X10^3/uL; Monocyte% 7.9 % (0-10); NRBC Flagged by Analyzer 0 % (0-5); Neutrophil # 6.71 X10^3/uL (2.7-7.7); Neutrophil % 73.8 % (47-70); Platelet Count 290 K/mm3 (150-450); RBC Distribution Width CV 16.4 % (11.6-14.6); RBC Distribution Width SD 58.4 fl (35.1-43.9); Red Blood Count 2.71 M/mm3 (4.2-5.4); White Blood Count 9.1 K/mm3 (4.4-11.0)
[2024-05-25] MEDS: Budesonide Respules 0.5 MG/2 ML AMPUL.NEB. INHALATION (07:08)
[2024-05-25] MEDS: Ipratropium/Albuterol Sulfate 3 ML AMPUL.NEB INHALATION ×2 (07:08→13:55)
[2024-05-25 08:07] LABS: Anion Gap 15 (5-15); BUN 38 mg/dL (4-19); Calcium,Total 9.6 mg/dL (7.6-11.0); Carbon Dioxide 16.5 mmol/L (21.0-32.0); Chloride 99 mmol/L (98-108); Creatinine, Serum 1.82 mg/dL (0.70-1.20); EST Glomerular Filtration Rate 28 (>60); Estimated Creatinine Clearance 30.75 ml/min (50-250); Glucose 92 mg/dL (70-99); Potassium 3.9 mmol/L (3.3-5.1); Sodium Level 131 mmol/L (133-145)
--- NOTE | 2024-05-25 09:26 | CASEMGMT ---
Addendum entered by Dhraa Holguin 05/25/24 11:14: [facility] has accepted. Pt will need a covid test. SW updated. Dhara Holguin DC Planning Asst. Original Note: Discharge Planning Referral sent to [facility]. Dhara Holguin DC Planning Asst.
[2024-05-25] MEDS: Venlafaxine XR 75 MG Capsule PO (09:28)
[2024-05-25] MEDS: Menthol/Lanolin/Calamine/Znox 113 GM Tube 1 APPLIC TOPICAL (09:28)
[2024-05-25] MEDS: Multivitamin (Healthy Eyes) Capsule 1 CAP PO (09:29)
[2024-05-25] MEDS: Furosemide 20 MG Tablet PO (09:29)
[2024-05-25] MEDS: Metoprolol(XL)Succ 50 MG Tablet PO (09:29)
[2024-05-25] MEDS: Nystatin Powder 15gm Bottle 1 APPLIC TOPICAL (09:31)
[2024-05-25] MEDS: Gabapentin 300 MG Capsule PO (09:31)
[2024-05-25] MEDS: Ampicillin/Sulbactam 3 GM in 0.9% Normal Saline (100mL MB+) 100 ML IV (09:34)
[2024-05-25] MEDS: 0.9% Saline Lock 10 ML Syringe IV (09:35)
[2024-05-25] MEDS: Insulin Glargine-YFGN 100 UNIT/ML Pen 50 UNIT SC (09:41)
[2024-05-25 09:44] LABS: Blood Gas Specimen Type VEN; O2 Delivery Device Not entered; SITE Not entered; VBG BASE EXCESS -7 mmol/L (-1.0-3.5); VBG Bicarbonate 17 mmol/L (22-26); VBG PO2 188 mmHg (25-40); VBG SO2 100 % (50-70); VBG TCO2 18 mmol/L (23-33); VBG pCO2 22.6 mmHg (41-51); VBG pH 7.48 (7.32-7.42)
[2024-05-25] MEDS: Insulin Lispro 100 UNIT/ML INSULN.PEN SC (11:06)
[2024-05-25] MEDS: Calcitriol 0.25 MCG Capsule 0.5 MCG PO (11:50)
--- NOTE | 2024-05-25 13:03 | PCM.TXEXTCAR ---
Diet Diet Order/Speech Therapy: 05/22/24 09:26 Diet: Regular - General Food consistency:: Soft & Bite Sized Liquid Consistency:: Regular/Thin Diet Comments: 1:1 sup/total feed, meds as tolerated, feed only when alert Routine Orders/Code Status Suppository Type: Dulcolax 10mg Suppository Frequency: Daily PRN Routine Lab Work: BMP (3 days) Code Status: DNRCC-A DC O2, CPAP, BIPAP needs Home O2 Discharge instructions: No Wound(s) rt hip: Wound Type: Surgical Incision Therapies Physical Therapy: Eval and Treat Occupational Therapy: Eval and Treat Problem/Diagnosis (1) Hyponatremia: Status: Acute Code(s): E87.1 - Hypo-osmolality and hyponatremia (2) Acute alteration in mental status: Status: Acute Code(s): R41.82 - Altered mental status, unspecified (3) Pneumonia: Status: Acute Code(s): J18.9 - Pneumonia, unspecified organism Plan # Acute encephalopathy secondary to pneumonia # Klebsiella UTI #GERD #ICD #CHF #CKD #Hx DVT #DM #COPD 79-year-old female history as above who presented to [facility] ED 05/25/2024 after a rapid response was called at the transitional care unit. She had been at the TCU for several days after surgery due to right hip fracture and had been doing well until the afternoon when she was found to be lethargic and minimally responsive. In the ED chest x-ray showed possible right midlung infiltrate and she was admitted and started on antibiotics, also was found to have Klebsiella UTI. Patient significantly improved on antibiotics and was stable for [facility] back to [facility], patient ultimately chose to go to [facility] and care. On day of discharge patient reports no new or acute complaints. Of note patient seemed to have a respiratory alkalosis with metabolic compensation on the day of discharge, suspect that this is multifactorial but can be caused by pneumonia which she does have. Continue to monitor clinically on discharge. Would also recommend a BMP in 3 days to check sodium and bicarb. DISCHARGE INSTRUCTIONS PLEASE READ *Please take this with you to your next doctors appointment* -You will be discharged on Augmentin with a dose tonight and then twice daily for 3 more days -your long-acting insulin was decreased to 55 units due to a glucose of 90 in the morning of date of discharge, this ultimately may need to be titrated but will defer to the physician you will follow with moving forward -Would recommend lab work (BMP) to check your sodium and bicarb in 2 to 3 days through your primary care physician's office. Please call their office upon discharge to obtain order for lab work. -You will need to be on Xarelto for DVT prophylaxis through 06/03 -Continue to follow with your orthopedic doctor as previously advised -Please call your primary care provider's office upon discharge to schedule a hospital follow up within 1 week. -For any concerning signs or symptoms please call 911 or proceed to the nearest emergency department Allergies/Procedures Done in Hospital Allergies levofloxacin (From Levaquin) Allergy (Verified 05/12/24 09:01) Hives Sulfa (Sulfonamide Antibiotics) Allergy (Verified 05/12/24 09:01) Hives Opioids - Morphine Analogues (narcotics) Adverse Reaction (Intermediate, Verified 05/12/24 09:01) Other Confusion, Behaviors Type of Care/Length of Stay Estimated LOS: Convalescent Care Less Than 30 days Type of Care Needed: Skilled Rehab Potential: Fair Prognosis: Fair Additional Orders/Day of Discharge Day of Discharge: 05/25/24 Dietary and Speech Recommendations Dietitian Recommendations/Changes: As medically able, rec KEVEN to [address] Consistent CHO/No Added Salt - consistency per [employer] Monitor need for ONS pending po intake as established. Discharge Plan Admission Admit Date/Time: 05/21/24 16:55 Primary Reason for Your Visit: Altered mental status Attending Provider: Radha Bill Primary Care Provider: Neel Ng Consulting Providers: Ivon Charles Instructions Patient Instructions: ED Fall Prevention Additional Instructions / Restrictions: DISCHARGE INSTRUCTIONS PLEASE READ *Please take this with you to your next doctors appointment* -You will be discharged on Augmentin with a dose tonight and then twice daily for 3 more days, your long -acting insulin was decreased to 55 units due to a glucose of 90 in the morning of date of discharge, this ultimately may need to be titrated but will defer to the physician he will be following with -Would recommend lab work (BMP) to check your sodium and bicarb in 2 to 3 days through your primary care physician's office. Please call their office upon discharge to obtain order for lab work. -You will need to be on Xarelto for DVT prophylaxis through 06/03 -Continue to follow with your orthopedic doctor as previously advised -Please call your primary care provider's office upon discharge to schedule a hospital follow up within 1 week. -For any concerning signs or symptoms please call 911 or proceed to the nearest emergency department Discharge Orders/Prescriptions Prescriptions: New amoxicillin-pot clavulanate 875-125 mg tablet 1 tab PO BID 3 Days Qty: 7 0RF insulin lispro [Humalog KwikPen Insulin] 100 unit/mL Insulin Pen See Protocol subcut ACHS Qty: 0 0RF Protocol: 3. Sliding Scale Insulin Med Dosing Condition: 150-189 mg/dl = 1 unit Condition: 190-229 mg/dl = 2 units Condition: 230-269 mg/dl = 3 units Condition: 270-309 mg/dl = 4 units Condition: 310-349 mg/dl = 5 units Condition: 350-399 mg/dl = 6 units Condition: 400-449 mg/dl = 7 units Condition: Greater than 449 call physician Protocol Text: Suggested for: - Patients on Total Daily Insulin Dose of 37-55 units - Obese, infected, or steroid patients MEDIUM DOSING ALGORITHIM Continued acetaminophen [Tylenol] 325 mg tablet 325 mg PO ONCE PRN (Reason: fever or pain) simvastatin 40 MG tablet 40 mg PO QHS Patient Comments: CHOLESTEROL melatonin 10 MG tablet 10 mg PO QHS 0RF calcitriol 0.5 mcg Capsule 0.5 mcg PO DAILY PreserVision Lutein 226 mg-200 unit -0.8 mg-5 mg Capsule 1 cap PO DAILY docusate sodium 100 mg Capsule 100 mg PO DAILY PRN (Reason: stool softener) furosemide 20 mg Tablet 20 mg PO DAILY senna 8.6 mg Capsule 8.6 mg PO DAILY PRN (Reason: constipation) Trelegy Ellipta 100-62.5-25 mcg Blister With Device 1 inh INHALATION DAILY hydralazine 25 mg tablet 25 mg PO TID Mounjaro 2.5 mg/0.5 mL pen injector See Rx Instructions SUBCUT .COMPLEX Rx Instructions: lowest dose subcutaneously; every saturday venlafaxine 75 mg capsule,extended release 24hr 75 mg PO DAILY metoprolol succinate 50 mg tablet extended release 24 hr 50 mg PO DAILY lidocaine 5 % Adhesive Patch,Medicated 2 patch topical DAILY PRN (Reason: pain, moderate) Protocol: *Topical Application Instructions APPLICATION INSTRUCTIONS: Apply to R groin/top of thigh gabapentin 300 mg Capsule 300 mg PO Q12H Xarelto 10 mg Tablet 10 mg PO DINNER 26 Days Qty: 0 0RF Changed insulin glargine [Lantus Solostar U-100 Insulin] 100 UNITS/ML insulin pen 55 unit subcut DAILY Qty: 15 0RF Referrals / Follow Up: Neel Ng MD [Primary Care Provider] - Within 1 Week Disposition Disposition (needs filled in before D/C Order can be placed): Detention Facility
--- NOTE | 2024-05-25 13:24 | PCM.DC.SUM ---
Providers Date of Admission: 05/21/24 Date of Discharge: 05/25/24 Primary Care Physician: Dr. Neel Ng MD Reason For Visit: ACUTE ENCEPHALOPATHY, PNEUMONIA Diagnosis Discharge Diagnosis (1) Hyponatremia: Status: Acute Code(s): E87.1 - Hypo-osmolality and hyponatremia (2) Acute alteration in mental status: Status: Acute Code(s): R41.82 - Altered mental status, unspecified (3) Pneumonia: Status: Acute Code(s): J18.9 - Pneumonia, unspecified organism Plan # Acute encephalopathy secondary to pneumonia # Klebsiella UTI #Hyponatremia #GERD #ICD #CHF #CKD #Hx DVT #DM #COPD Medications at Discharge Home Medications simvastatin 40 mg tablet 40 mg PO QHS cholesterol 12/16/12 melatonin 10 mg sublingual tablet 10 mg PO QHS Insomnia 02/20/18 calcitriol 0.5 mcg capsule 0.5 mcg PO DAILY Supplement 08/09/21 vit C 226 mg-vit E 90 mg-copper 0.8 mg-zinc oxide-lutein 5 mg capsule (PreserVision Lutein) 1 cap PO DAILY Supplement 08/09/21 docusate sodium 100 mg capsule 100 mg PO DAILY PRN stool softener 03/30/22 furosemide 20 mg tablet 20 mg PO DAILY 03/30/22 sennosides 8.6 mg capsule (senna) 8.6 mg PO DAILY PRN constipation 03/30/22 fluticasone fur. 100 mcg-umeclid 62.5 mcg-vilant 25 mcg inhalat.powder (Trelegy Ellipta) 1 inh inhalation DAILY SOB 05/23/22 hydralazine 25 mg tablet 25 mg PO TID Blood pressure 01/30/23 gabapentin 300 mg capsule 300 mg PO Q12H pain 04/28/24 lidocaine 5 % topical patch 2 patch topical DAILY PRN pain, moderate 04/28/24 metoprolol succinate 50 mg tablet,extended release 24 hr 50 mg PO DAILY Blood pressure 04/28/24 tirzepatide 2.5 mg/0.5 mL subcutaneous pen injector (Colten) See Rx Instructions subcut .COMPLEX Diabetes 04/28/24 venlafaxine 75 mg capsule,extended release 24 hr 75 mg PO DAILY Depression 04/28/24 rivaroxaban 10 mg tablet (Xarelto) 10 mg PO DINNER Anticoagulant 26 days #0 tabs 05/02/24 acetaminophen 325 mg tablet (Tylenol) 325 mg PO ONCE PRN fever or pain 05/12/24 amoxicillin 875 mg-potassium clavulanate 125 mg tablet 1 tab PO BID 3 days #7 tabs 05/25/24 insulin glargine 100 unit/mL (3 mL) subcutaneous pen (Lantus Solostar U-100 Insulin) 55 unit (0.55 mL) subcut DAILY Diabetes #15 mL 05/25/24 insulin lispro 100 unit/mL subcutaneous pen (Humalog KwikPen (U-100) Insulin) See Protocol subcut ACHS #0 mL 05/25/24 Hospital Course Summary of Care Provided Minutes Spent on Discharge: 32 Hospital Course: # Acute encephalopathy secondary to pneumonia # Klebsiella UTI #Hyponatremia #GERD #ICD #CHF #CKD #Hx DVT #DM #COPD 79-year-old female history as above who presented to [facility] ED 05/25/2024 after a rapid response was called at the transitional care unit. She had been at the TCU for several days after surgery due to right hip fracture and had been doing well until the afternoon when she was found to be lethargic and minimally responsive. In the ED chest x-ray showed possible right midlung infiltrate and she was admitted and started on antibiotics, also was found to have Klebsiella UTI. Patient significantly improved on antibiotics and was stable for DC back to shelter facility, patient ultimately [facility]. On day of discharge patient reports no new or acute complaints. Of note patient seemed to have a respiratory alkalosis with metabolic compensation on the day of discharge, suspect that this is multifactorial but can be caused by pneumonia which she does have. Continue to monitor clinically on discharge. Would also recommend a BMP in 3 days to check sodium and bicarb. DISCHARGE INSTRUCTIONS PLEASE READ *Please take this with you to your next doctors appointment* -You will be discharged on Augmentin with a dose tonight and then twice daily for 3 more days -your long-acting insulin was decreased to 55 units due to a glucose of 90 in the morning of date of discharge, this ultimately may need to be titrated but will defer to the physician you will follow with moving forward -Would recommend lab work (BMP) to check your sodium and bicarb in 2 to 3 days through your primary care physician's office. Please call their office upon discharge to obtain order for lab work. -You will need to be on Xarelto for DVT prophylaxis through 06/03 -Continue to follow with your orthopedic doctor as previously advised -Please call your primary care provider's office upon discharge to schedule a hospital follow up within 1 week. -For any concerning signs or symptoms please call 911 or proceed to the nearest emergency department Physical Exam Narrative General: Alert, no apparent distress HEENT: Atraumatic, normocephalic Eyes: Anicteric, normal conjunctiva, extraocular movements grossly intact Neck: Supple Respiratory: Clear to auscultation bilaterally, normal respiratory effort Cardiovascular: Regular rate GI: Soft, nontender, nondistended Extremities: No significant pitting edema Musculoskeletal: Moving all extremities Neuro: No overt focal neurological deficits Skin: No rashes appreciated Psych: Cooperative Weight / BMI Weight Weight: 122.4 kg Body Mass Index (BMI) 49.3 ABG / Lab / Microbiology Data 05/25/24 06:02 05/25/24 06:02 Laboratory: Laboratory Results - last 24 hr 05/24/24 16:16: POC Glucose 141 H 05/24/24 21:29: POC Glucose 168 H 05/25/24 06:02: WBC 9.1, RBC 2.71 L, Hgb 8.9 L, Hct 27.3 L, MCV 100.7 H, MCH 32.8 H, MCHC 32.6, RDW Std Deviation 58.4 H, RDW Coeff of Yoel 16.4 H, Plt Count 290, MPV 9.7, Immature Gran % (Auto) 0.700, Neut % (Auto) 73.8 H, Lymph % (Auto) 15.0 L, [place] % (Auto) 7.9, Eos % (Auto) 1.7, Baso % (Auto) 0.9, Absolute Neuts (auto) 6.7, Absolute Lymphs (auto) 1.36, Nucleated RBC % 0, Sodium 131 L, Potassium 3.9, Chloride 99, Carbon Dioxide 16.5 L, Anion Gap 15, BUN 38 H, Creatinine 1.82 H, Estim Creat Clear Calc 30.75 L, Est GFR (MDRD) Non-Af 28 L, BUN/Creatinine Ratio 21.0 H, Glucose 92, Calcium 9.6 05/25/24 06:27: POC Glucose 90 Microbiology: Microbiology 05/21/24 17:02 Blood Culture (Wb) - Arm Left Blood Culture - Preliminary No growth in 48 hours. 05/21/24 16:39 Blood Culture (Wb) - Right Forearm Blood Culture - Preliminary No growth in 48 hours. 05/21/24 14:36 Mucosa - Nose SARS-CoV-2, Influenza & RSV (PCR) - Final ABG: ABG 05/25/24 09:41 Specimen Type MARY Sample Site Not entered VBG pH 7.48 H VBG pO2 188 H VBG HCO3 17 L VBG Total CO2 18 L VBG O2 Sat (Calc) 100 H VBG Base Excess -7 L POC Mix VBG pCO2 Pt Tmp 22.6 L O2 Delivery Device Not entered D/C Instructions DC O2, CPAP, BIPAP Needs Home O2 Discharge instructions: No Meaningful Use Info Meaningful Use Meaningful Use Diagnoses (Choose all that apply): None applicable Ischemic Stroke Statin Dosing Therapy Reference: STATIN DOSE THERAPY REFERENCE: * Patients > 75 years receive moderate or high dose statin therapy. * Patients 75 years or YOUNGER should receive HIGH intensity statin dose unless contraindicated. You will be required to document reason for non-treatment if statin daily dose does not meet guidelines. HIGH DOSE STATIN THERAPY DAILY Atorvastatin > than or = to 40 mg Rosuvastatin > than or = to 20 mg Amlodipine + Atorvastatin > than or = to 2.5/40 mg Ezetimibe + Simvastatin 10/80 mg Simvastatin 80mg Discharge Plan Admission Admit Date/Time: 05/21/24 16:55 Primary Reason for Your Visit: Altered mental status Attending Provider: Radha Bill Primary Care Provider: Neel Ng Consulting Providers: Ivon Charles Instructions Patient Instructions: ED Fall Prevention Additional Instructions / Restrictions: DISCHARGE INSTRUCTIONS PLEASE READ *Please take this with you to your next doctors appointment* -You will be discharged on Augmentin with a dose tonight and then twice daily for 3 more days, your long -acting insulin was decreased to 55 units due to a glucose of 90 in the morning of date of discharge, this ultimately may need to be titrated but will defer to the physician he will be following with -Would recommend lab work (BMP) to check your sodium and bicarb in 2 to 3 days through your primary care physician's office. Please call their office upon discharge to obtain order for lab work. -You will need to be on Xarelto for DVT prophylaxis through 06/03 -Continue to follow with your orthopedic doctor as previously advised -Please call your primary care provider's office upon discharge to schedule a hospital follow up within 1 week. -For any concerning signs or symptoms please call 911 or proceed to the nearest emergency department Discharge Orders/Prescriptions Prescriptions: New amoxicillin-pot clavulanate 875-125 mg tablet 1 tab PO BID 3 Days Qty: 7 0RF insulin lispro [Humalog KwikPen Insulin] 100 unit/mL Insulin Pen See Protocol subcut ACHS Qty: 0 0RF Protocol: 3. Sliding Scale Insulin Med Dosing Condition: 150-189 mg/dl = 1 unit Condition: 190-229 mg/dl = 2 units Condition: 230-269 mg/dl = 3 units Condition: 270-309 mg/dl = 4 units Condition: 310-349 mg/dl = 5 units Condition: 350-399 mg/dl = 6 units Condition: 400-449 mg/dl = 7 units Condition: Greater than 449 call physician Protocol Text: Suggested for: - Patients on Total Daily Insulin Dose of 37-55 units - Obese, infected, or steroid patients MEDIUM DOSING ALGORITHIM Continued acetaminophen [Tylenol] 325 mg tablet 325 mg PO ONCE PRN (Reason: fever or pain) simvastatin 40 MG tablet 40 mg PO QHS Patient Comments: CHOLESTEROL melatonin 10 MG tablet 10 mg PO QHS 0RF calcitriol 0.5 mcg Capsule 0.5 mcg PO DAILY PreserVision Lutein 226 mg-200 unit -0.8 mg-5 mg Capsule 1 cap PO DAILY docusate sodium 100 mg Capsule 100 mg PO DAILY PRN (Reason: stool softener) furosemide 20 mg Tablet 20 mg PO DAILY senna 8.6 mg Capsule 8.6 mg PO DAILY PRN (Reason: constipation) Trelegy Ellipta 100-62.5-25 mcg Blister With Device 1 inh INHALATION DAILY hydralazine 25 mg tablet 25 mg PO TID Mounjaro 2.5 mg/0.5 mL pen injector See Rx Instructions SUBCUT .COMPLEX Rx Instructions: lowest dose subcutaneously; every saturday venlafaxine 75 mg capsule,extended release 24hr 75 mg PO DAILY metoprolol succinate 50 mg tablet extended release 24 hr 50 mg PO DAILY lidocaine 5 % Adhesive Patch,Medicated 2 patch topical DAILY PRN (Reason: pain, moderate) Protocol: *Topical Application Instructions APPLICATION INSTRUCTIONS: Apply to R groin/top of thigh gabapentin 300 mg Capsule 300 mg PO Q12H Xarelto 10 mg Tablet 10 mg PO DINNER 26 Days Qty: 0 0RF Changed insulin glargine [Lantus Solostar U-100 Insulin] 100 UNITS/ML insulin pen 55 unit subcut DAILY Qty: 15 0RF Referrals / Follow Up: Neel Ng MD [Primary Care Provider] - Within 1 Week Disposition Disposition (needs filled in before D/C Order can be placed): [facility] Charges/Coding Visit Charges Inpatient E&M: 81549 Disch Hosp >30min
--- NOTE | 2024-05-25 14:31 | CASEMGMT ---
Social Work Physician feels that pt is ready for discharge today.?[facility] notified of discharge. Final discharge arrangements and notification to patient/family as per discharge family medicine physician assistant.? Disposition:?[facility]; skilled level of care JAG Dacosta
--- NOTE | 2024-05-25 15:06 | CASEMGMT ---
Discharge Planning Discharge orders, signed med list and transport time sent to [facility]. Physicians will transport pt by wheelchair at 5p. Nursing, SW, and pt updated. Pt updated son (Hardik). Dhara Holguin DC Planning Asst.
[2024-05-25] MEDS: Rivaroxaban 10 MG Tablet PO (17:05)
[2024-05-25 17:09] LABS: Bedside Glucose 167 mg/dL (74-106)
[2024-05-25 17:34] LABS: Bedside Glucose 151 mg/dL (74-106)
== END 2024-05-25 19:20 | disposition skilled nursing facility (03) | DRG 177 ==
LOC: ED 16:50 → MS3 17:11
PROVIDERS: Admitting Provider Student in an Organized Health Care Education/Training Program; Emergency Provider Emergency Medicine; PCP Internal Medicine; Visit Provider Internal Medicine
DX: J69.0 Pneumonitis due to inhalation of food and vomit (principal); G93.41 Metabolic encephalopathy; N18.4 Chronic kidney disease, stage 4 (severe); I13.0 Hypertensive heart and chronic kidney disease with heart failure and stage 1 through stage 4 chronic kidney disease, or unspecified chronic kidney disease; E87.1 Hypo-osmolality and hyponatremia; N39.0 Urinary tract infection, site not specified; Z66 Do not resuscitate; J44.9 Chronic obstructive pulmonary disease, unspecified; E11.22 Type 2 diabetes mellitus with diabetic chronic kidney disease; I50.9 Heart failure, unspecified; E86.0 Dehydration; Z79.4 Long term (current) use of insulin; E78.5 Hyperlipidemia, unspecified; F41.9 Anxiety disorder, unspecified; B96.1 Klebsiella pneumoniae [K. pneumoniae] as the cause of diseases classified elsewhere; Z90.710 Acquired absence of both cervix and uterus; Z87.891 Personal history of nicotine dependence; Z79.51 Long term (current) use of inhaled steroids; Z79.85 Long-term (current) use of injectable non-insulin antidiabetic drugs; Z86.718 Personal history of other venous thrombosis and embolism; Z99.81 Dependence on supplemental oxygen; Z79.899 Other long term (current) drug therapy; Z95.810 Presence of automatic (implantable) cardiac defibrillator; Z90.49 Acquired absence of other specified parts of digestive tract; Z79.01 Long term (current) use of anticoagulants; R41.82 Altered mental status, unspecified
CPT/HCPCS: 36415; 70450; 71045; 80048; 80053; 81001; 82803; 82962; 85025; 87040; 87070; 87205; 87631; 87635; 92526; 92610; 93005; 94640; 96372; 97162; 97166; 97530; 97535; 97802; 99285; A4216; J0295; J0696; Q5106

== ENCOUNTER 2024-06-24 09:34 | Outpatient (CLI) | payer MEDICARE, OTHER, SELFPAY ==
[2024-06-24 10:01] LABS: Hematocrit 30.1 % (37-47); Hemoglobin 9.3 g/dL (12.0-15.0)
[2024-06-24 10:10] VITALS: BP 112/69; PULSE 89; RESP 18; TEMP 36.8; O2SAT 96
[2024-06-24] MEDS: Epoetin Alfa-epbx 40,000 UNIT/ML 20000 UNIT SC (10:17)
[2024-06-24 10:51] LABS: Albumin, Serum 3.9 g/dL (3.4-4.8); Anion Gap 13 (5-15); BUN 65 mg/dL (4-19); BUN/Creat Ratio 29.1 RATIO (10-20); Calcium,Total 10.3 mg/dL (7.6-11.0); Carbon Dioxide 22.7 mmol/L (21.0-32.0); Chloride 101 mmol/L (98-108); Creatinine, Serum 2.22 mg/dL (0.70-1.20); EST Glomerular Filtration Rate 22 (>60); Ferritin 99 ng/mL (22-378); Glucose 198 mg/dL (70-99); Iron 54 ug/dL (50-170); Iron Binding Capacity,Total 291 ug/dL (250-450); Iron Binding Capacity,Unsat 237 ug/dL (228-428); Phosphorus 4.5 mg/dL (2.7-4.5); Potassium 4.5 mmol/L (3.3-5.1); Sodium Level 136 mmol/L (133-145)
[2024-06-24 17:58] LABS: Xtra Tube EP Lab EXTRA TUBE
== END 2024-06-24 23:59 | disposition home or self-care (01) ==
LOC: MEDOUTP 09:34
PROVIDERS: PCP Internal Medicine; Referring Provider Internal Medicine Nephrology; Visit Provider Internal Medicine Nephrology
DX: N18.32 Chronic kidney disease, stage 3b (principal); D63.1 Anemia in chronic kidney disease
CPT/HCPCS: 36415; 80069; 82728; 83540; 83550; 85014; 85018; 96372; Q5106

== ENCOUNTER 2024-07-22 08:46 | Outpatient (CLI) | payer MEDICARE, OTHER, SELFPAY ==
[2024-07-22 09:05] LABS: Hematocrit 32.8 % (37-47); Hemoglobin 10.3 g/dL (12.0-15.0)
[2024-07-22 09:13] VITALS: BP 118/60; PULSE 75; RESP 16; TEMP 35.9; O2SAT 96
[2024-07-22] MEDS: Epoetin Alfa epbx 10,000 UNIT/ML 20000 UNIT SC (09:32)
[2024-07-22 09:37] LABS: Anion Gap 16 (5-15); BUN 64 mg/dL (4-19); BUN/Creat Ratio 27.8 RATIO (10-20); Calcium,Total 9.9 mg/dL (7.6-11.0); Chloride 105 mmol/L (98-108); Creatinine, Serum 2.31 mg/dL (0.70-1.20); EST Glomerular Filtration Rate 21 (>60); Ferritin 93 ng/mL (22-378); Glucose 99 mg/dL (70-99); Iron 59 ug/dL (50-170); Iron Binding Capacity,Total 314 ug/dL (250-450); Iron Binding Capacity,Unsat 255 ug/dL (228-428); Phosphorus 4.6 mg/dL (2.7-4.5); Potassium 4.9 mmol/L (3.3-5.1); Sodium Level 142 mmol/L (133-145)
[2024-07-22 17:02] LABS: Xtra Tube EP Lab EXTRA TUBE
== END 2024-07-22 23:59 | disposition home or self-care (01) ==
LOC: MEDOUTP 08:47
PROVIDERS: PCP Internal Medicine; Referring Provider Internal Medicine Nephrology; Visit Provider Internal Medicine Nephrology
DX: N18.32 Chronic kidney disease, stage 3b (principal); D63.1 Anemia in chronic kidney disease
CPT/HCPCS: 36415; 80069; 82728; 83540; 83550; 85014; 85018; 96372; Q5106

== ENCOUNTER 2024-08-19 08:51 | Outpatient (CLI) | payer MEDICARE, OTHER, SELFPAY ==
[2024-08-19 09:09] LABS: Hematocrit 34.5 % (37-47); Hemoglobin 10.7 g/dL (12.0-15.0)
[2024-08-19 10:00] LABS: Albumin, Serum 3.9 g/dL (3.4-4.8); Anion Gap 15 (5-15); BUN 54 mg/dL (4-19); BUN/Creat Ratio 20.3 RATIO (10-20); Calcium,Total 9.6 mg/dL (7.6-11.0); Carbon Dioxide 23.5 mmol/L (21.0-32.0); Chloride 99 mmol/L (98-108); Creatinine, Serum 2.68 mg/dL (0.70-1.20); EST Glomerular Filtration Rate 17 (>60); Glucose 82 mg/dL (70-99); Phosphorus 4.8 mg/dL (2.7-4.5); Potassium 4.3 mmol/L (3.3-5.1); Sodium Level 137 mmol/L (133-145)
== END 2024-08-19 23:59 | disposition home or self-care (01) ==
LOC: MEDOUTP 08:51
PROVIDERS: PCP Internal Medicine; Referring Provider Internal Medicine Nephrology; Visit Provider Internal Medicine Nephrology
DX: N18.32 Chronic kidney disease, stage 3b (principal); D63.1 Anemia in chronic kidney disease
CPT/HCPCS: 36415; 80069; 85014; 85018

== ENCOUNTER 2024-09-16 09:12 | Outpatient (CLI) | payer MEDICARE, OTHER, SELFPAY ==
[2024-09-16 09:36] LABS: Hematocrit 34.7 % (37-47); Hemoglobin 11.1 g/dL (12.0-15.0)
[2024-09-16 10:05] LABS: Albumin, Serum 3.8 g/dL (3.4-4.8); Anion Gap 16 (5-15); BUN 53 mg/dL (4-19); BUN/Creat Ratio 20.5 RATIO (10-20); Calcium,Total 9.4 mg/dL (7.6-11.0); Carbon Dioxide 24.1 mmol/L (21.0-32.0); Chloride 94 mmol/L (98-108); Glucose 144 mg/dL (70-99); Potassium 4.3 mmol/L (3.3-5.1)
[2024-09-16 17:31] LABS: Xtra Tube EP Lab EXTRA TUBE
== END 2024-09-16 23:59 | disposition home or self-care (01) ==
LOC: MEDOUTP 09:13
PROVIDERS: PCP Internal Medicine; Referring Provider Internal Medicine Nephrology; Visit Provider Internal Medicine Nephrology
DX: N18.32 Chronic kidney disease, stage 3b (principal); D63.1 Anemia in chronic kidney disease
CPT/HCPCS: 36415; 80069; 85014; 85018

== ENCOUNTER 2024-09-27 02:03 | Inpatient (IN) | payer MEDICARE, OTHER, SELFPAY ==
[2024-09-27] VITALS (18 sets, daily range): BP systolic 109–138; BP diastolic 58–89; PULSE 78–105; RESP 16–22; TEMP 36.6–37.1; O2SAT 93–99; BMI 53.5; BMI 49.8
--- NOTE | 2024-09-27 02:11 | EKG12_ITS ---
Test Reason : CP Blood Pressure : */* mmHG Vent. Rate : 104 BPM Atrial Rate : 104 BPM P-R Int : 200 ms QRS Dur : 138 ms QT Int : 376 ms P-R-T Axes : 55 -70 103 degrees QTcB Int : 494 ms Sinus tachycardia Possible Left atrial enlargement Left axis deviation Left bundle branch block Abnormal ECG Confirmed by Gregory June ([id number]), technical editor DIDI DOTSON ([id number]) on 09/28/2024 1:03:01 PM Referred By: ALPHONSE Confirmed By: Gregory June
--- NOTE | 2024-09-27 02:20 | RAD_ITS ---
PROCEDURE: CHEST 1 VIEW (PORTABLE) 09/27/2024 REASON FOR EXAM: CHEST PAIN TECHNIQUE: Frontal view of the chest. COMPARISON: None. FINDINGS: The heart is enlarged. Vascular indistinctness suggestive of edema. Left chest pacemaker. No acute osseous abnormalities. RAD/Chest 1 View (Portable) IMPRESSION: Pulmonary edema. Reading Location: [place] [id number]
[2024-09-27 02:31] LABS: Hematocrit 36.2 % (37-47); Hemoglobin 11.3 g/dL (12.0-15.0); Immature Granulocytes Count 0.070 X10^3/uL (0.0-0.0); Mean Corp Hgb Conc 31.2 g/dL (32-36); Mean Corpuscular Volume 97.8 fL (81-99); Mean Platelet Vol. 9.6 fl (6.2-12.0); NRBC Flagged by Analyzer 0 % (0-5); Platelet Count 188 K/mm3 (150-450); RBC Distribution Width CV 16.3 % (11.6-14.6); RBC Distribution Width SD 59.4 fl (35.1-43.9); Red Blood Count 3.70 M/mm3 (4.2-5.4); White Blood Count 13.2 K/mm3 (4.4-11.0)
[2024-09-27 02:39] LABS: Prothrombin Time (Protime)PT. 14.6 SECONDS (11.7-14.9)
--- OUTSIDE RECORDS SUMMARY | 2024-09-27 02:43 | XMS RPT_ITS | CCD ---
Author Organization [facility] Care Team Providers Care Admin Dir Name Role Phone Gregory Villanueva Unavailable TanAdelaAnum N Unavailable Unavailable Unavailable Unavailable Unavailable Primary Care Provider Unavailabl e Bandar, Itri A Admitting Unavailable Bandar, Itri A Attending Unavailable Bandar, Itri A Admitting Unavailable Bandar, Itri A Attending Unavailable Gahlawat, Bernadette Attending Unavailable Gahlawat, Bernadette Admitting Unavailable No Doctor Assigned, Nodr Primary Care Unavail able Tan, Anum N Unavailable Tan, Anum N Unavailable Tan, Anum N Unavailable Unavailable Primary Care Provider Unavailabl e Neel Turpin MD Primary Care Provider Neel Turpin MD Primary Care Provider Dr. Neel Turpin Primary Care Provider Dr. Ernesto Graham Emergency Provider Dr. Radha Bill Admit Provider Dr. Radha Bill Attending Provider Dr. Radha Bill Other Provider Dr. Stan Rockwell Attending Provider Unavailable Dr. Stan Rockwell Other Provider Unavailable DUSTIN Ramsay Other Provider Dr. Ezra Stoner Emergency Provider Dr. Cruzito Ferris Admit Provider Dr. Cruzito Ferris Attending Provider Dr. Cruzito Ferris Other Provider Dr. Darlene Maguire Attending Provider Dr. Darlene Maguire Other Provider Dr. Sivakumar Dinero Other Provider MD Issa Bonilla Attending Provider Neel Turpin Unavailable Jairon Lopez Unavailable Isidro Lloyd Unavailable Chris Antoine Unavailable Unavailable Dr. Neel Turpin Primary Care Provider Dr. Ernesto Graham Emergency Provider Dr. Radha Bill Admit Provider Dr. Radha Bill Attending Provider Dr. Radha Bill Other Provider Dr. Stan Rockwell Attending Provider Unavailable Dr. Stan Rockwell Other Provider Unavailable Shruthi CHAN, PA Ken Other Provider Dr. Ezra Stoner Emergency Provider Dr. Cruzito Ferris Admit Provider Dr. Cruzito Ferris Attending Provider Dr. Cruzito Ferris Other Provider Dr. Darlene Maguire Attending Provider Dr. Darlene Maguire Other Provider Dr. Sivakumar Dinero Other Provider Dr. Luan Smith Attending Provider Dr. Darlene Maguire Referring Provider Issa Bonilla Admitting Unavailable Issa Bonilla Attending Unavailable NON STAFF Primary Care Unavailable Issa Bonilla Attending Unavailable Issa Bonilla Admitting Unavailable Neel Turpin MD Primary Care Provider Neel Turpin Unavailable Unavailable Unavailable Arash, Dr. Perez Attending Unavailable Papi, Dr. Neel Ordonez Primary Care Unavailable Paula Walter Attending Unavailable Papi, Dr. Neel Ordonez Primary Care Unavailable Papi, Dr. Neel Ordonez Primary Care Unavailable John, Dr. Jairon Rosen Admitting Unavaila ble John, Dr. Jairon Rosen Referring Unavaila ble Bolaños, Dr. Reynaldo Shankar Attending Unavaila ble Papi, Dr. Neel Ordonez Primary Care Unavailable Arash, Dr. Perez Referring Unavailable Arash, Dr. Perez Attending Unavailable Papi, Dr. Neel Ordonez Primary Care Unavailable Pavan, Claus Attending Unavailable Arash, Dr. Perez Attending Unavailable Papi, Dr. Neel Ordonez Primary Care Unavailable Papi, Dr. Neel Ordonez Primary Care Unavailable Arash, Dr. Perez Attending Unavailable Arash, Dr. Perez Attending Unavailable Papi, Dr. Neel Ordonez Primary Care Unavailable Papi, Dr. Neel Ordonez Primary Care Unavailable Arash, Dr. Perez Attending Unavailable Papi, Dr. Neel Ordonez Primary Care Unavailable Arash, Dr. Perez Attending Unavailable Arash, Dr. Perez Attending Unavailable Papi, Dr. Neel Ordonez Primary Care Unavailable Neel Turpin MD Primary Care Provider Pavan, Dr. Devlin Attending Unavailable Pavan, Dr. Devlin Referring Unavailable Papi, Dr. Neel Ordonez Primary Care Unavailable Pavan, Dr. Devlin Admitting Unavailable Ramicone, Dr. Jesus Cortes Attending Unavailabl e Papi, Dr. Neel Ordonez Primary Care Unavailable Paneccasio [facility], Tessa Unavailable Hailee NARAYAN, Annalisa Unavailable Neel Turpin MD Primary Care Provider Ravi NARAYAN, Malissa Blackmon Unavailable Hailee NARAYAN, Annalisa Unavailable Ravi NARAYAN, Malissa Blackmon Unavailable Tyra [email or web address], Kacy M Unavailable [phone] NEEL TURPIN Primary Care Unavailable JOSHDATATE VGARRETTRELSIE Admitting Unavailable JOSHDATATE VYRN Attending Unavailable CESAR PINTO Consulting Unava ilable RAHUL BROWNESHANK Referring Unavailable NEEL TURPIN Primary Care Unavailable NEEL TURPIN Primary Care Unavailable PAVAN CLAUS Referring Unavailable NEEL TURPIN Primary Care Unavailable PAVAN, CLAUS Referring Unavailable NEEL TURPIN Primary Care Unavailable PAVAN CLAUS Referring Unavailable PAPI, NEEL ORDONEZ Primary Care Unavailable BROWNE, CLAUS Referring Unavailable PAPI, NEEL ORDONEZ Primary Care Unavailable CHRIS ANTOINE Attending Unavailable NEEL TURPIN Primary Care Unavailable PAULA WALTER Attending Unavailable NEEL TURPIN Primary Care Unavailable PAULA WALTER Attending Unavailable NEEL TURPIN Primary Care Unavailable CHRIS ANTOINE Attending Unavailable NEEL TURPIN Primary Care Unavailable PAULA WALTER Attending Unavailable NEEL TURPIN Primary Care Unavailable PAPI, NEHAL Primary Care Unavailable PAPI, NEEL Dempsey Primary Care Unavailable NEEL TURPIN Primary Care Unavailable KACY MARY Attending Unavailable NEEL TURPIN Primary Care Unavailable PAPI, NEEL Dempsey Primary Care Unavailable KACY MARY Attending Unavailable NEEL TURPIN Primary Care Unavailable PAPI, NEEL Dempsey Primary Care Unavailable SELF Referring Unavailable KACY MARY Attending Unavailable NEEL TURPIN Primary Care Unavailable SELF Referring Unavailable KACY MARY Attending Unavailable NEEL TURPIN Primary Care Unavailable NEEL TURPIN Primary Care Unavailable NEEL TURPIN Primary Care Unavailable KACY MARY Attending Unavailable TURPINNEEL TURCIOS Primary Care Unavailable KACY MARY Referring Unavailable NEEL TURPIN Primary Care Unavailable Aspen, Jayaprakas Attending Unavailable Aspen, Jayaprakas Referring Unavailable Turpin, Neel Primary Care Unavailable Aspen, Jayaprakas Referring Unavailable Aspen, Jayaprakas Attending Unavailable Turpin, Neel Primary Care Unavailable Aspen, Jayaprakas Referring Unavailable Aspen, Jayaprakas Attending Unavailable Papi Neel Primary Care Unavailable Horacio Garcia Attending Unavailable Horacio Garcia Consulting Unavailable Clifton Hanson Admitting Unavailable Turpin, Neel Primary Care Unavailable Clifton Hanson Consulting Unavailable Gonzalo, Jose Chi Admitting Unavailable Gonzalo, Jose Chi Attending Unavailable Turpin, Neel Primary Care Unavailable Aspen, Jayaprakas Referring Unavailable Aspen, Jayaprakas Attending Unavailable Turpin, Neel Primary Care Unavailable Aspen, Jayaprakas Attending Unavailable Aspen, Jayaprakas Referring Unavailable Turpin, Neel Primary Care Unavailable Melvin Ivon Evon Consulting Unavailable Radha Bill Attending Unavailable Turpin Neel Primary Care Unavailable Ivon Charles Admitting Unavailable Clifton Hanson Attending Unavailable Aspen, Jayaprakas Referring Unavailable Aspen, Jayaprakas Attending Unavailable Turpin, Neel Primary Care Unavailable Aspen, Jayaprakas Referring Unavailable Aspen, Jayaprakas Attending Unavailable Turpin, Neel Primary Care Unavailable Aspen, Jayaprakas Referring Unavailable Aspen, Jayaprakas Attending Unavailable Turpin, Neel Primary Care Unavailable Aspen, Jayaprakas Attending Unavailable Aspen, Jayaprakas Referring Unavailable Turpin, Neel Primary Care Unavailable Aspen, Jayaprakas Attending Unavailable Aspen, Jayaprakas Referring Unavailable Papi Neel Primary Care Unavailable Aspen, Jayaprakas Attending Unavailable Aspen, Jayaprakas Referring Unavailable Turpin, Neel Primary Care Unavailable Aspen, Jayaprakas Referring Unavailable Aspen, Jayaprakas Attending Unavailable Turpin, Neel Primary Care Unavailable Koram, Ivon Evon Consulting Unavailable Koram, Ivon Evon Attending Unavailable Turpin, Neel Primary Care Unavailable Koram, Ivon Evon Admitting Unavailable Horacio Garcia Consulting Unavailable Clifton Hanson Attending Unavailable Clifton Hanson Admitting Unavailable Turpin, Neel Primary Care Unavailable Aspen, Jayaprakas Referring Unavailable Aspen, Jayaprakas Attending Unavailable Turpin, Neel Primary Care Unavailable Horacio Garcia Attending Unavailable Turpin, Neel Primary Care Unavailable Turpin, Neel Referring Unavailable Clifton Hanson Referring Unavailable Radha Bill Attending Unavailable Radha Bill Consulting Unavailable Gregory June Attending Unavailable Bruno Romero Referring Unavailable Turpin, Neel Primary Care Unavailable Aspen, Jayaprakas Referring Unavailable Aspen, Jayaprakas Attending Unavailable Turpin, Neel Primary Care Unavailable Allergies Allergy Classification Reported Allergen(s) Allergy Type Date of Onset Reaction(s) Facility Quinolones (antibiotic) (1 source) levoFLOXacin Drug Allergy 12-30-19 05 [facility] Work Phone: semaglutide (1 source) semaglutide Drug Allergy 07-10-19 24 Intolerance [facility] Work Phone: Sulfonamides (antibiotic) (1 source) Sulfonamides (Antibiotic) Drug Allergy 12-30-19 05 [facility] (19 sources) Sulfonamides (Antibiotic); Translations: [sulfa] drug allergy [facility] Work Phone: (20 sources) levoFLOXacin; Translations: [Levaquin TABS] Drug Allergy 12-30-19 05 Rash [facility] Work Phone: (20 sources) Sulfonamides (Antibiotic); Translations: [SULFA (SULFONAMIDE ANTIBIOTICS)] Allergy to substance 12-30-19 05 Hives [facility] Work Phone: (20 sources) Seasonal allergy; Translations: [SEASONAL ALLERGIES] Allergy to substance 08-20-19 15 Other: See Comments [facility] (1 source) Sulfacetamide Drug Allergy Rash [facility] (2 sources) levoFLOXacin; Translations: [Levaquin TABS] Drug Allergy [id number] [address] Work Phone: (19 sources) Sulfacetamide; Translations: [SULFACETAMIDE SODIUM] Drug Allergy 11-26-19 23 Rash [facility] Work Phone: (20 sources) semaglutide; Translations: [SEMAGLUTIDE] Drug Allergy 07-10-19 24 Intolerance [facility] Work Phone: (1 source) levoFLOXacin Drug Allergy 05-12-19 [facility] (1 source) Opioids - Morphine Analogues Drug allergy (disorder) 05-12-19 [facility] Medications Current Medications Medication Drug Class(es) Dates Sig (Normalized) Sig (Original) acetaminophen 325 mg oral tablet (20 sources) Start: 09-09-2023 take 1 tablet by mouth every four hours as needed 650 mg, oral, Every 4 hours PRN, pain mild (1-3), first line, headaches, fever (temp greater than 38.0 C), Starting on Sat09/09/23 at 0920, If ordered PRN for pain, nurse is permitted to administer this medication for higher pain scores based on patient preference? Yes Start: 12-22-2021 take 1000 mg by mout h every eight hours Acetaminophen Active 1000 MG PO EVERY 8 HOURS December 22, 2021 12:53pm Start: 12-21-2021 End: 12-22-2021 take 1000 mg by mouth once daily Acetaminophen Discontinued 1000 MG PO DAILY December 21, 2021 12:00am December 22, 2021 1:53pm Start: 01-27-2018 End: 02-20-2018 take 2 tablets by mouth every four hours as needed Acetaminophen (Tylenol) 325 MG tablet Discontinued 650 MG PO EVERY 4 HOURS NEEDED January 27, 2018 1:00am February 20, 2018 10:00pm Start: 12-16-2013 End: 01-27-2018 take 1000 mg by mouth every four hours as needed Acetaminophen Discontinued 1000 MG PO EVERY 4 HOURS NEEDED December 16, 2013 12:00am January 27, 2018 12:42pm End: 12-28-2022 take 2 tablets by mouth every eight hours as needed acetaminophen (TylenoL) 325 mg tablet Take 2 tablets (650 mg) by mouth every 8 hours if needed (PAIN). 0 12/28/2022 Discontinued (Other) acetaminophen 325 mg / HYDROcodone bitartrate 5 mg oral tablet (1 source) Opioid Agonist Start: 09-10-2023 take 1 tablet by mouth every six hours as needed 1 tablet, oral, Every 6 hours PRN, pain severe (7-10), first line, Starting on Sat09/10/23 at 0955, If ordered PRN for pain, nurse is permitted to administer this medication for higher pain scores based on patient preference? Yes albuterol 0.83 mg/ml inhalation solution (2 sources) [...] a day. 0 12/28/2022 Discontinued (Therapy completed) ascorbic acid 226 mg / cuprous oxide 0.8 mg / dl-alpha tocopheryl acetate 200 unt / lutein 5 mg / zinc oxide 34.8 mg oral capsule (20 sources) Vitamin C Start: 08-10-2020 take 1 capsule by mouth once daily Vit C-Vit I-Dcxhso-GeHb-Lut ein (PRESERVISION LUTEIN) 226 mg-200 unit -5 mg-0.8 mg cap Take 1 capsule by mouth once daily. 08/10/2020 Active Comment on above: Take 1 capsule by [facility] once daily. budesonide 0.25 mg/ml inhalation suspension (1 source) Corticosteroid Start: 09-09-2023 take 0.5 mg by mouth twice daily 0.5 mg, nebulization, 2 times daily RT, First dose on Sat09/09/23 at 0945, Rinse mouth with water after use to reduce aftertaste and incidence of candidiasis. Do not swallow. busPIRone hydrochloride 10 mg oral tablet (14 sources) Start: 08-05-2024 take 1 tablet by mouth twice daily busPIRone (BUSPAR) 10 mg tablet Take 1 tablet by mouth two times a day. 180 tablet 3 08/05/2024 Active Start: 07-06-2024 take 1 tablet by george twice daily busPIRone (BUSPAR) 10 mg tablet Take 1 tablet by mouth two times a day. 60 tablet 1 07/06/2024 Active End: 07-06-2024 take 1 tablet by mouth twice daily busPIRone (BUSPAR) 5 mg tablet Take 5 mg by mouth two times a day. 07/06/2024 Discontinued calcitriol 0.0005 mg oral capsule (20 sources) Vitamin D3 Analog Start: 05-30-2020 End: 09-09-2023 calcitriol (ROCALTROL) 0.5 mcg capsule Take 0.5 mcg by mouth. 07/31/2021 Active Start: 05-30-2020 take 0.5 ug by mouth once [place] Calcitriol Active 0.5 MCG PO DAILY August 08, 2021 11:00pm Start: 10-23-2016 CALCITRIOL 0.2 5 MCG CAPS CALCITRIOL [id number] Johana Kovacs Comment on above: Take 1 capsule by mo [facility] once daily. Take 1 capsule by mo [facility]. Taking three times a week Take 0.5 mcg by [facility]. calcium carbonate 1250 mg / cholecalciferol 1000 unt / vitamin k 0.4 mg chewable tablet (1 source) Vitamin D Start: 04-19-19 16 take 1 tablet by mouth once daily Calcium-Vitamin D3-Vitamin K (Citracal-D3 Soft Chew) 1 EACH tablet,chewable Active 1 EACH PO DAILY April 19, 2015 12:13pm cefuroxime 250 mg oral tablet (1 source) Cephalosporin Antibacterial Start: 02-21-20 18 take 500 mg by mouth every twelve hours Cefuroxime Axetil Active 500 MG PO EVERY 12 HOURS February 20, 2018 9:58pm cephalexin 250 mg oral capsule (4 sources) Cephalosporin Antibacterial Start: 03-30-19 25 End: 04-06-19 25 take 1 capsule by mouth twice daily cephALEXin (KEFLEX) 250 mg capsule Take 1 capsule by mouth two times a day for 7 days. 14 capsule 03/30/2024 04/06/2024 Active Start: 10-05-2022 take 1 tablet by george three times daily Cephalexin 500 MG Oral Tablet TAKE 1 TABLET 3 TIMES DAILY. Quantity: 15 Refills: 0 Ordered: 05-Oct-2022 Claus Browne MD Start : 05-Oct-2022 Active End: 12-28-2022 take 1 capsule by mouth three times daily cephalexin (Keflex) 500 mg capsule Take 1 capsule (500 mg) by mouth 3 times a day. 0 12/28/2022 Discontinued (Therapy completed) cetirizine hydrochloride 5 mg oral tablet (5 sources) Histamine-1 Receptor Antagonist Start: 03-26-2018 take 5 mg by mouth once daily Cetirizine Active 5 MG PO DAILY March 26, 2018 1:00am clotrimazole 10 mg/ml topical cream (20 sources) Azole Antifungal Start: 10-19-2019 End: 09-09-2023 clotrimazole (LOTRIMIN) 1 % cream Apply to affected area. 03/30/2022 Active Clotrimazole 1 % External Cream USE DIRECTED Quantity: 0 Refills: 0 Ordered: 28-Mar-2022 DO Active Comment on above: Apply to affected ar ea. COMPOUNDED PRESCRIPTION (20 sources) End: 07-06-2024 COMPOUNDED PRESCRIPTION Take 1 tablet by mouth twice daily. Plexus Bio-5 (Probiotic) 07/06/2024 Discontinued (Discontinued by Patient) COMPOUNDED PRESC RIPTION Take 1 tablet by mouth twice daily. Plexus Bio-5 (Probiotic) Active COMPOUNDED PRESC RIPTION Take 1 tablet by mouth twice daily. Plexus Bio-5 (Probiotic) 0 Active Comment on above: Take 1 tablet by george twice daily. Plexus Bio-5 (Probiotic) docusate sodium 100 mg oral capsule (20 sources) Start: 01-30-2022 docusate sodium (COLACE) 100 mg capsule Take 1 capsule by mouth as needed. 01/30/2022 Active End: 12-28-2022 docusate sodium (Colace) 50 mg capsule Take by mouth. 0 12/28/2022 Discontinued (Duplicate order) Colace 50 MG CAP S TAKE DIRECTED. Quantity: 0 Refills: 0 Ordered: 28-Mar-2022 DO Active Comment on above: Take 1 capsule by mo [facility]. Take 1 capsule by mo [facility] as needed. docusate sodium 50 mg / sennosides, assisted 8.6 mg oral tablet (20 sources) Start: 02-20-2018 Sennosides-Docusate Sodium (Stool Softener-Stimulant Laxat) 1 TABLET tablet Active 2 TABLET PO TWICE A DAY February 20, 2018 9:58pm Start: 02-20-2018 End: 09-23-2023 senna-docusate (SENNA-S) 8.6 -50 mg per tablet Take by mouth. 0 02/20/2018 09/23/2023 Discontinued (Discontinued by Patient) Comment on above: Take by mouth. empagliflozin 10 mg oral tablet (20 sources) Sodium-Glucose Cotransporter 2 Inhibitor Start: 09-12-19 End: 09-12-19 take 1 tablet by mouth once daily empagliflozin (JARDIANCE) 10 mg tablet Take 1 tablet by mouth once daily. Prescribed by ballistics teacher 09/23/2023 Active 0.3 ml enoxaparin sodium 100 mg/ml prefilled syringe (20 sources) Low Molecular Weight Heparin Start: 09-09-19 30 mg, subcutaneous, Daily, First dose on Sat09/09/23 at 0945, Renally adjusted for CrCl ~26 mL/min Start: 01-27-2018 End: 01-27-2018 Enoxaparin Discontinued 30 M G SC DAILY January 27, 2018 1:00am January 27, 2018 4:44pm 1 ml epoetin zari 07735 unt/ml injection (20 sources) Erythropoiesis-stimulating Agent Start: 01-27-2018 End: 01-27-2018 Epoetin Azri (Epogen) 10,000 UNIT/ML solution Active 66614 UNIT SC EVERY MONTH January 27, 2018 3:44pm Start: 01-01-2018 epoetin zari ( PROCRIT,EPOGEN) 10,000 unit/mL injection Inject 10,000 Units subcutaneously q 4 WEEKS. 12,000 Units every two weeks. 0 01/01/2018 Active Start: 10-23-2016 PROCRIT 66737 UNIT/ML SOLN EPOETIN ZARI [id number] Johana Kovacs Start: 10-23-2016 PROCRIT 37755 UNIT/ML SOLN EPOETIN ZARI [id number] Johana Kovacs Start: 10-23-2016 PROCRIT 13185 UNIT/ML SOLN EPOETIN ZARI [id number] Johana De La Garza Kovacs Start: 12-16-2013 End: 01-27-2018 Epoetin Zari (Epogen) 10,000 UNIT/ML Ml Discontinued 83237 UNIT SC EVERY MONTH December 16, 2013 12:00am January 27, 2018 12:52pm epoetin zari (Ep ogen) 10,000 unit/mL injection Inject 1.3 mL (13,000 Units) under the skin see administration instructions. EVERY 28 DAYS Active Epogen 01024 UNI T/ML Injection Solution INJECT SUBCUTANEOUSLY DIRECTED. Quantity: 0 Refills: 0 Ordered: 28-Mar-2022 DO Active Epogen 10,000 un its/mL preservative-free injectable solution ; 1.3 milliliter(s) injectable every 28 days Quantity: 0 Refills: 0 Ordered: 26-Jan-2022 Suzi Ramirez Generic Substitution Allowed Comment on above: Inject 10,000 Units subcutaneously q 4 WEEKS. 12,000 Units every two weeks. erythromycin 500 mg oral tablet (2 sources) Macrolide, Macrolide Antimicrobial End: 12-29-19 23 take 1 tablet by mouth every twelve hours erythromycin base (E-Mycin) 500 mg tablet Take 1 tablet (500 mg) by mouth every 12 hours. 0 12/28/2022 Discontinued (Therapy completed) 30 actuat fluticasone furoate 0.1 mg/actuat / umeclidinium 0.0625 mg/actuat / vilanterol 0.025 mg/actuat dry powder inhaler (20 sources) Anticholinergic, Corticosteroid, beta2-Adrenergic Agonist Start: 10-25-19 24 fluticasone-umeclidin -vilanter (Trelegy Ellipta) 100-62.5-25 mcg blister with device Indications: Centrilobular emphysema (Multi) USE 1 INHALATION DAILY, RINSE MOUTH OUT WITH WATER AFTER EACH USE 180 each 3 10/25/2023 Active Start: 05-23-2022 Fluticasone-Um eclidin-Vilanter (Trelegy Ellipta) 100-62.5-25 mcg Blister With Device Active 1 INH INHALATION DAILY May 23, 2022 1:00am Start: 05-23-2022 Fluticasone-Um eclidin-Vilanter (Trelegy Ellipta) 100-62.5-25 mcg Blister With Device Active 1 INH INHALATION DAILY May 23, 2022 12:00am Start: 05-22-2022 take 1 puff(s) by mouth once daily Trelegy Ellipta 100-62.5-25 mcg blister with device Inhale 1 puff once daily. Rinse mouth out with h20 after each use 0 08/08/2022 Active Start: 04-23-2022 End: 05-23-2022 Trelegy Ellipta 100-62.5-25 MCG/ACT Inhalation Aerosol Powder Breath Activated 1 INHALATION ONCE DAILY, RINSE MOUTH OUT AFTERWARDS WITH WATER Quantity: 2 Refills: 0 Ordered: 24-Apr-2022 Paula Walter DO Start : 23-Apr-2022 End : 23-May-2022 Complete Comment on above: Inhale 1 Puff as ins tructed once daily. formoterol fumarate 0.01 mg/ml inhalation solution (1 source) beta2-Adrenergic Agonist Start: 09-09-2023 20 mcg, nebulization, 2 times daily RT, First dose on Sat09/09/23 at 0945 furosemide 20 mg oral tablet (20 sources) Loop Diuretic Start: 07-13-2024 take 1 tablet by mouth once daily as needed furosemide (LASIX) 20 mg tablet Take 1 tablet by mouth once daily. Take an extra 20 mg tablet daily as needed 120 tablet 1 07/13/2024 Active Start: 12-05-2023 End: 03-25-2024 take 1 tablet by mouth once daily as needed furosemide (LASIX) 20 mg tablet Take 1 tablet by mouth once daily. Take an extra 20 mg tablet daily as needed 120 tablet 1 03/25/2024 Active Start: 01-30-2022 End: 12-03-2023 take 20 mg by mouth once daily 20 mg, oral, Daily, Fir st dose on Sat09/09/23 at 0945, On hold since Sat09/10/2023 at 0826 until manually unheld Comment on above: Take 1 tablet by george th once daily. Take 1 tablet by george th. Take an extra 20 mg daily as needed Take 1 tablet by george th once daily. Take an extra 20 mg tablet daily as needed gabapentin 300 mg oral capsule (20 sources) Anti-epileptic Agent Start: 03-01-2020 End: 02-05-2022 take 1 capsule by mouth once daily at bedtime gabapentin (NEURONTIN) 300 mg capsule Indications: DDD (degenerative disc disease), thoracolumbar Take 1 capsule by mouth daily at bedtime for 180 days. 30 capsule 2 08/09/2021 12/18/2021 Discontinued Start: 11-07-2016 End: 03-22-2025 take 1 capsule by mouth twice daily gabapentin (NEURONTIN) 300 mg capsule Indications: DDD (degenerative disc disease), thoracolumbar Take 1 capsule by mouth two times a day for 180 days. 180 capsule 1 09/23/2024 03/22/2025 Active Start: 11-07-2016 End: 12-28-2022 take 300 mg by mouth three times daily at mealtime Gabapentin Active 300 MG PO 3 TIMES DAILY WITH MEALS 0 December 26, 2021 11:00pm Comment on above: Take 1 capsule by mo uth daily at bedtime for 180 days. Take 1 capsule by mo uth twice daily for 90 days. Take 1 capsule by mo uth three times daily for 90 days. Take 1 capsule by mo uth twice daily for 180 days. Take 1 capsule by mo uth two times a day for 180 days. glucagon (rdna) 1 mg injection (1 source) Antihypoglycemic Agent Start: 1 mg, intramuscular, Every 15 min PRN, low blood sugar - see comments, For blood glucose less than or equal to 70 mg/dL and no IV access, Starting on Sat09/09/23 at 0945, Give until blood glucose is 100 mg/dL or greater. If patient DOES NOT HAVE secure IV access & patient is unconscious, NPO or is unable to eat or drink. 50 ml glucose 500 mg/ml prefilled syringe (1 source) Start: 024 12.5 g, intravenous, Every 15 min PRN, For blood glucose 41 to 70 mg/dL, Starting on Sat09/09/23 at 0945, May repeat until blood glucose level reaches 100 mg/dL or greater. Push 2 - 3 mL/minute if patient has secure IV access. 12 hr guaiFENesin 600 mg extended release oral tablet (1 source) Start: take 1 tablet by mouth twice daily, then take 1 tablet by mouth every twelve hours Guaifenesin (Mucinex) 600 MG tablet extended release 12hr Active 600 MG PO TWICE A DAY March 26, 2018 1:13pm hydrALAZINE hydrochloride 25 mg oral tablet (20 sources) Arteriolar Vasodilator Start: 023 End: hydrALAZINE (Apresoline) 25 mg tablet Indications: Chronic combined systolic and diastolic CHF, NYHA class 3 (Multi) TAKE 1 TABLET THREE TIMES A DAY 270 tablet 3 01/10/2024 Active Comment on above: Take 25 mg by mouth three times a day. hydrOXYzine pamoate 25 mg oral capsule (1 source) Antihistamine Start: take 25 mg by mouth four times daily as needed Hydroxyzine Pamoate Active 25 MG PO 4 TIMES DAILY NEEDED 0 February 20, 2018 9:58pm 3 ml insulin glargine 100 unt/ml pen injector (20 sources) Insulin Analog Start: End: insulin glargine (LANTUS SOLOSTAR U-100 INSULIN) 100 unit/mL (3 mL) Indications: Type 2 diabetes mellitus with stage 4 chronic kidney disease, with long-term current use of insulin (HCC) Inject 40 Units subcutaneously daily at bedtime. 60 mL 3 09/23/2024 Active Start: 07-06-2024 End: 09-16-2024 insulin glargine (LANTUS YESSICA OSTAR U-100 INSULIN) 100 unit/mL (3 mL) Indications: Type 2 diabetes mellitus with stage 4 chronic kidney disease, with long-term current use of insulin (HCC) Inject 45 Units subcutaneously daily at bedtime. 07/06/2024 09/16/2024 Discontinued Start: 01-15-2024 End: 07-06-2024 insulin glargine (LANTUS YESSICA OSTAR U-100 INSULIN) 100 unit/mL (3 mL) Indications: Type 2 diabetes mellitus with stage 4 chronic kidney disease, with long-term current use of insulin (HCC) Inject 60 Units subcutaneously daily at bedtime. 60 mL 3 03/25/2024 07/06/2024 Discontinued Start: 10-30-2023 End: 01-15-2024 insulin glargine (LANTUS YESSICA OSTAR U-100 INSULIN) 100 unit/mL (3 mL) Indications: Type 2 diabetes mellitus with stage 4 chronic kidney disease, with long-term current use of insulin (HCC) Inject 55 Units subcutaneously daily at bedtime. 60 mL 3 10/30/2023 01/15/2024 Discontinued (Adjust Sig - Block E-Cancel) Start: 09-09-2023 inject 55 [IU] by walters bcutaneous injection once daily 55 Units, subcutaneous, Nightly, First dose (after last modification) on Sat09/09/23 at 2044 Start: 09-04-2023 End: 10-30-2023 insulin glargine (LANTUS YESSICA OSTAR U-100 INSULIN) 100 unit/mL (3 mL) Indications: Type 2 diabetes mellitus with stage 4 chronic kidney disease, with long-term current use of insulin (HCC) Inject 48 Units subcutaneously daily at bedtime. 09/04/2023 10/30/2023 Discontinued Start: 07-31-2023 End: 09-04-2023 insulin glargine (LANTUS YESSICA OSTAR U-100 INSULIN) 100 unit/mL (3 mL) Indications: Type 2 diabetes mellitus with stage 4 chronic kidney disease, with long-term current use of insulin (HCC) Inject 55 Units subcutaneously daily at bedtime. 0 07/31/2023 09/04/2023 Discontinued Start: 07-03-2023 End: 07-31-2023 insulin glargine (LANTUS YESSICA OSTAR U-100 INSULIN) 100 unit/mL (3 mL) Indications: Type 2 diabetes mellitus with stage 4 chronic kidney disease, with long-term current use of insulin (HCC) Inject 62 Units subcutaneously daily at bedtime. 0 07/03/2023 07/31/2023 Discontinued (Adjust Sig - Block E-Cancel) Start: 06-05-2023 End: 07-03-2023 insulin glargine (LANTUS YESSICA OSTAR U-100 INSULIN) 100 unit/mL (3 mL) Indications: Type 2 diabetes mellitus with stage 4 chronic kidney disease, with long-term current use of insulin (HCC) Inject 52 Units subcutaneously daily at bedtime. 0 06/05/2023 07/03/2023 Discontinued (Adjust Sig - Block E-Cancel) Start: 03-13-2023 End: 06-05-2023 insulin glargine (LANTUS YESSICA OSTAR U-100 INSULIN) 100 unit/mL (3 mL) Indications: Type 2 diabetes mellitus with stage 4 chronic kidney disease, with long-term current use of insulin (HCC) Inject 54 Units subcutaneously daily at bedtime. 0 03/13/2023 06/05/2023 Discontinued (Adjust Sig - Block E-Cancel) Start: 02-14-2023 insulin glargi ne (LANTUS SOLOSTAR U-100 INSULIN) 100 unit/mL (3 mL) Indications: Type 2 diabetes mellitus with stage 4 chronic kidney disease, with long-term current use of insulin (HCC) Inject 60 Units subcutaneously daily at bedtime. 50 mL 3 02/14/2023 Active Start: 02-11-2023 End: 02-14-2023 insulin glargine (LANTUS YESSICA OSTAR U-100 INSULIN) 100 unit/mL (3 mL) Indications: Type 2 diabetes mellitus with stage 4 chronic kidney disease, with long-term current use of insulin (HCC) Inject 55 Units subcutaneously daily at bedtime. 50 mL 1 02/11/2023 02/14/2023 Discontinued Start: 01-04-2023 End: 02-11-2023 insulin glargine (LANTUS YESSICA OSTAR U-100 INSULIN) 100 unit/mL (3 mL) Indications: Type 2 diabetes mellitus with stage 4 chronic kidney disease, with long-term current use of insulin (HCC) Inject 55 Units subcutaneously daily at bedtime. 50 mL 1 02/11/2023 Active Start: 01-04-2023 End: 01-04-2023 insulin glargine (LANTUS YESSICA OSTAR U-100 INSULIN) 100 unit/mL (3 mL) Indications: Type 2 diabetes mellitus with stage 4 chronic kidney disease, with long-term current use of insulin (HCC) Inject 50 Units subcutaneously daily at bedtime. 0 01/04/2023 01/04/2023 Discontinued Start: 08-15-2022 End: 01-04-2023 insulin glargine (LANTUS YESSICA OSTAR U-100 INSULIN) 100 unit/mL (3 mL) Indications: Type 2 diabetes mellitus with stage 4 chronic kidney disease, with long-term current use of insulin (HCC) Inject 45 Units subcutaneously daily at bedtime. 15 Each 3 08/15/2022 01/04/2023 Discontinued Start: 02-22-2022 End: 08-15-2022 insulin glargine (LANTUS YESSICA OSTAR U-100 INSULIN) 100 unit/mL (3 mL) Indications: Type 2 diabetes mellitus with stage 4 chronic kidney disease, with long-term current use of insulin (HCC) Inject 30 Units subcutaneously daily at bedtime. 0 02/22/2022 08/15/2022 Discontinued Start: 12-25-2021 Insulin Glargi ne (Lantus Solostar U-100 Insulin) 100 UNITS/ML insulin pen Active 40 UNIT SC DAILY December 25, 2021 6:24pm Start: 12-22-2021 End: 12-25-2021 Insulin Glargine (Lantus Yessica ostar U-100 Insulin) 100 UNITS/ML insulin pen Discontinued 10 UNIT SC DAILY December 22, 2021 1:53pm December 25, 2021 6:24pm Start: 08-09-2021 End: 02-22-2022 insulin glargine (LANTUS YESSICA OSTAR U-100 INSULIN) 100 unit/mL (3 mL) Indications: Type 2 diabetes mellitus with stage 4 chronic kidney disease, with long-term current use of insulin (HCC) Inject 40 Units subcutaneously daily at bedtime. 12 Pen 3 08/09/2021 02/22/2022 Discontinued Start: 08-09-2021 End: 12-28-2022 Lantus SoloStar 100 UNIT/ML Subcutaneous Solution Pen-injector INJECT 40 UNIT Daily Quantity: 0 Refills: 0 Ordered: 06-Jan-2022 DO Start : 09-Aug-2021 Active Start: 08-09-2021 Lantus SoloSta r 100 UNIT/ML Subcutaneous Solution Pen-injector USE DIRECTED. Quantity: 0 Refills: 0 Ordered: 06-Jan-2022 DO Start : 09-Aug-2021 Active Start: 08-09-2021 End: 12-22-2021 Insulin Glargine (Lantus Yessica ostar U-100 Insulin) 100 UNITS/ML insulin pen Discontinued 40 UNITS SC DAILY August 09, 2021 9:30am December 22, 2021 1:53pm Start: 11-17-2020 End: 08-09-2021 insulin glargine (LANTUS YESSICA OSTAR U-100 INSULIN) 100 unit/mL (3 mL) Indications: Type 2 diabetes mellitus with stage 4 chronic kidney disease, with long-term current use of insulin (HCC) Inject 35 Units subcutaneously every morning. 10 Pen 1 04/05/2021 08/09/2021 Discontinued Start: 02-20-2018 End: 08-09-2021 Insulin Glargine (Lantus Yessica ostar U-100 Insulin) 100 UNITS/ML insulin pen Discontinued 30 UNITS SC DAILY February 20, 2018 1:00am August 09, 2021 9:30am Start: 10-23-2016 LANTUS 100 UNI T/ML SOLN INSULIN GLARGINE [id number] Johana Kovacs Start: 10-23-2016 LANTUS 100 UNI T/ML SOLN INSULIN GLARGINE [id number] Johana De La Garza Kovacs Start: 10-23-2016 LANTUS 100 UNI T/ML SOLN INSULIN GLARGINE [id number] Johana De La Garza Bethanie Start: 12-16-2012 End: 02-20-2018 Insulin Glargine (Lantus Yessica ostar U-100 Insulin) 100 UNITS/ML Pen Discontinued 35 UNITS SC DAILY December 16, 2012 12:00am February 20, 2018 9:59pm Lantus Solostar Pen 100 units/mL subcutaneous solution ; 40 unit(s) subcutaneous once a day (at bedtime) Quantity: 0 Refills: 0 Ordered: 26-Jan-2022 Suzi Ramirez Generic Substitution Allowed Comment on above: Inject 35 Units subc utaneously once daily. Inject 35 Units subc utaneously every morning. Inject 40 Units subc utaneously daily at bedtime. Inject 30 Units subc utaneously daily at bedtime. Inject 45 Units subc utaneously daily at bedtime. Inject 55 Units subc utaneously daily at bedtime. Inject 50 Units subc utaneously daily at bedtime. Inject 60 Units subc utaneously daily at bedtime. Inject 54 Units subc utaneously daily at bedtime. Inject 52 Units subc utaneously daily at bedtime. Inject 62 Units subc utaneously daily at bedtime. Insulin Glargine (Lantus Solostar U-100 Insulin) 100 UNITS/ML insulin pen (4 sources) Start: 08-09-2021 Insulin Glargine (Lantus Solostar U-100 Insulin) 100 UNITS/ML insulin pen Active 40 UNITS SC DAILY August 09, 2021 9:30am Start: 02-20-2018 End: 08-09-2021 Insulin Glargine (Lantus Yessica ostar U-100 Insulin) 100 UNITS/ML insulin pen Discontinued 30 UNITS SC DAILY February 20, 2018 9:58pm August 09, 2021 9:30am Start: 02-20-2018 End: 08-09-2021 Insulin Glargine (Lantus Yessica ostar U-100 Insulin) 100 UNITS/ML insulin pen Discontinued 30 UNITS SC DAILY February 20, 2018 1:00am August 09, 2021 9:30am insulin lispro 100 unt/ml injectable solution (20 sources) Insulin Analog Start: 09-09-2023 0-5 Units, sub cutaneous, 3 times daily (morning, midday, late afternoon), First dose on Sat09/09/23 at 1200, Do not hold when patient is not eating, continue order as scheduled for hyperglycemia management. Insulin Lispro Corrective Scale #1 Hypoglycemia protocol Call LIP unit(s) if Blood Glucose is between 0 - 70 mg/dL 0 unit(s) if Blood glucose is between 71-150 1 unit(s) if Blood glucose is between 151-200 2 unit(s) if Blood glucose is between 201-250 3 unit(s) if Blood glucose is between 251-300 4 unit(s) if Blood glucose is between 301-350 5 unit(s) if Blood glucose is between 351-400 Notify provider unit(s) if Blood Glucose is greater than 400 mg/dL Start: 03-30-2022 Insulin Lispro Active SC March 30, 2022 1:00am Start: 02-20-2018 Insulin Lispro (Humalog Kwikpen Insulin) 100 UNIT/ML insulin pen Active 10 UNIT SC 3 TIMES DAILY WITH MEALS February 20, 2018 9:58pm Start: 02-20-2018 insulin lispro (HUMALOG KWIKPEN) 100 unit/mL Inject subcutaneously. Instructions per sliding scale 0 02/20/2018 Active HumaLOG KwikPen 100 UNIT/ML SOLN USE DIRECTED. Quantity: 0 Refills: 0 Ordered: 28-Mar-2022 DO Active HumaLOG KwikPen 100 units/mL injectable solution ; sliding scale Quantity: 0 Refills: 0 Ordered: 26-Jan-2022 Suzi Ramirez Generic Substitution Allowed Comment on above: Inject subcutaneousl y. Instructions per sliding scale insulin lispro (HUMALOG KWIKPEN) 100 unit/mL (2 sources) Start: 02-20-2018 End: 08-15-2022 insulin lispro (HUMALOG KWIKPEN) 100 unit/mL Inject subcutaneously. Instructions per sliding scale 0 02/20/2018 08/15/2022 Discontinued (Course of therapy completed) Start: 02-20-2018 insulin lispro (HUMALOG KWIKPEN) 100 unit/mL Inject subcutaneously. Instructions per sliding scale 0 02/20/2018 Active Comment on above: Inject subcutaneousl y. Instructions per sliding scale Lactobacillus acidophilus (15 sources) take 1 tablet by mouth once daily Lactobacillus acidophilus (PROBIOTIC ACIDOPHILUS ORAL) Take 1 tablet by mouth once daily. Active take 1 tablet by mouth once [place] Lactobacillus acidophilus (PROBIOTIC ACIDOPHILUS ORAL) Take 1 tablet by mouth once daily. 0 Active magnesium hydroxide 80 mg/ml oral suspension (2 sources) End: 12-28-2022 take 30 mL by mouth every twenty-four hours as needed magnesium hydroxide (Milk of Magnesia) 400 mg/5 mL suspension Take 30 mL by mouth once daily as needed for constipation. 0 12/28/2022 Discontinued (Other) melatonin 5 mg oral tablet (20 sources) Start: 01-29-2022 melatonin 5 mg tablet Take 2 tablets by mouth. 01/29/2022 Active Start: 02-20-2018 take 10 mg by mouth at bedtime Melatonin Active 10 MG PO AT BEDTIME February 20, 2018 1:00am End: 12-28-2022 melatonin 5 mg tablet Take b y mouth. Take as directed 0 12/28/2022 Discontinued (Other) End: 12-28-2022 take 1 capsule by mouth once daily at bedtime melatonin 10 mg capsule Take 1 capsule (10 mg) by mouth once daily at bedtime. 0 12/28/2022 Discontinued (Other) Melatonin 5 MG O ral Tablet TAKE DIRECTED. Quantity: 0 Refills: 0 Ordered: 28-Mar-2022 DO Active Comment on above: Take 2 tablets by mo uth. menthol 0.0044 mg/mg / zinc oxide 0.2 mg/mg topical ointment (1 source) Start: 02-20-2018 Menthol-Zinc Oxide (Calmoseptine) 1 APPLIC ointment Active 1 APPLIC TOPICAL 0600,0 February 20, 2018 9:58pm 24 hr metoprolol succinate 50 mg extended release oral tablet (20 sources) beta-Adrenergic Darinel Start: 05-14-2023 End: 05-13-2024 metoprolol succinate XL (Toprol-XL) 50 mg 24 hr tablet Indications: Chronic combined systolic and diastolic CHF, NYHA class 3 (Multi) TAKE 1 TABLET DAILY (DO NOT CRUSH OR CHEW) 90 tablet 3 05/11/2024 Active Start: 08-19-2022 End: 12-28-2022 take 1 tablet by mouth once daily metoprolol succinate XL (Toprol-XL) 50 mg 24 hr tablet Take 1 tablet (50 mg) by mouth once daily. 0 08/19/2022 12/28/2022 Discontinued (Other) Start: 08-15-2022 take 1 tablet by george th every hour metoprolol succinate ER (TOPROL XL) 50 mg 24 hr tablet Indications: Hypertensive heart disease with acute on chronic systolic congestive heart failure (HCC) Take 1 tablet by mouth once daily. Per Dr. Yulia Antoine, cardiology. 08/15/2022 Active Start: 05-02-2022 End: 08-15-2022 take 1 tablet by mouth every hour metoprolol succinate ER (TOPROL XL) 25 mg 24 hr tablet Indications: Hypertensive heart disease with acute on chronic systolic congestive heart failure (HCC) Take 50 mg by mouth once daily. Per Dr. Yulia Antoine, cardiology. 30 tablet 0 05/02/2022 08/15/2022 Discontinued Start: 03-30-2022 take 50 mg by mouth once daily Metoprolol Succinate Active 50 MG PO DAILY March 30, 2022 1:00am Start: 03-30-2022 take 25 mg by mouth once daily Metoprolol Succinate Active 25 MG PO DAILY March 30, 2022 1:00am Start: 03-28-2022 End: 12-28-2022 metoprolol succinate XL (Top rol-XL) 25 mg 24 hr tablet Start: 03-28-2022 take 1 tablet by george th once daily Metoprolol Succinate ER 25 MG Oral Tablet Extended Release 24 Hour TAKE 1 TABLET ONCE DAILY. Quantity: 90 Refills: 3 Ordered: 28-Mar-2022 Chris Antoine MD Start : 28-Mar-2022 Active Comment on above: Take 50 mg by mouth once daily. Per Dr. Yulia Antoine, cardiology. Take 1 tablet by george th once daily. Per Dr. Yulia Antoine, cardiology. Nut.Tx.Gluc Intol,Lf,Soy-Fiber (Glucerna 1.2 Osmel) 0.06-1.2 gram-kcal/mL Liquid (2 sources) Start: 12-27-2021 take 1 mL by mouth four times daily Nut.Tx.Gluc Intol,Lf,Soy-Fiber (Glucerna 1.2 Osmel) 0.06-1.2 gram-kcal/mL Liquid Active 120 ML PO 4 TIMES DAILY 0 December 26, 2021 11:00pm Start: 12-27-2021 take 1 mL by mouth f our times daily Nut.Tx.Gluc Intol,Lf,Soy-Fiber (Glucerna 1.2 Osmel) 0.06-1.2 gram-kcal/mL Liquid Active 120 ML PO 4 TIMES DAILY 0 December 27, 2021 12:00am nystatin 100 unt/mg topical powder (1 source) Polyene Antifungal Start: 02-20-2018 Nystatin (N yamyc) 1 APPLIC bottle Active 1 APPLIC TOPICAL [id number] 20, 2018 9:58pm Ocuvite Eye + Multi oral tablet (1 source) take 1 tablet by mouth once daily Ocuvite Eye + Multi oral tablet ; 1 tab(s) orally once a day Quantity: 0 Refills: 0 Ordered: 17-Jan-2019 Yaz Simons Status: Other Generic Substitution Allowed oxybutynin chloride 5 mg oral tablet (4 sources) Cholinergic Muscarinic Antagonist Start: 08-09-2021 take 5 mg by mouth twice daily Oxybutynin Chloride Active 5 MG PO TWICE A DAY August 09, 2021 12:00am oxygen (O2) therapy (1 source) Start: 09-09-2023 inhalation, Continuous PRN - O2/gases, other, PT USES O2 At HS, Starting on Sat09/09/23 at 0919, Device: Nasal Cannula, Rate in liters per minute: 2 LPM, Keep O2 Sat Above: 90% polyethylene glycol 3350 34090 mg powder for oral solution (20 sources) Osmotic Laxative Start: 09-09-2023 Start: 02-20-2018 End: 08-09-2021 take 17 g by mouth once daily Polyethylene Glycol 3350 Discontinued 17 GM PO DAILY February 20, 2018 1:00am August 09, 2021 9:30am predniSONE 20 mg oral tablet (2 sources) Start: 12-04-2021 End: 12-28-2022 predniSONE (Deltasone) 20 mg tablet Start: 12-04-2021 End: 12-09-2021 take 2 tablets by mouth once daily predniSONE (DELTASONE) 20 mg tablet Take 2 tablets by mouth once daily for 5 days. 10 tablet 0 12/04/2021 12/09/2021 Active Comment on above: Take 2 tablets by mo [facility] once daily for 5 days. sennosides, assisted 8.6 mg oral capsule (20 sources) Start: 03-30-2022 take 1 capsule by mouth once daily Sennosides (Senna) 8.6 mg Capsule Active 8.6 MG PO DAILY March 30, 2022 1:00am Start: 01-29-2022 End: 09-09-2023 senna (SENOKOT) 8.6 mg tab T amarilys 1 tablet by mouth as needed. 01/29/2022 Active Senna Laxative 8 .6 MG Oral Tablet TAKE DIRECTED. Quantity: 0 Refills: 0 Ordered: 28-Mar-2022 DO Active Comment on above: Take 1 tablet by george th. Take 1 tablet by george th as needed. simvastatin 40 mg oral tablet (20 sources) HMG-CoA Reductase Inhibitor Start: 09-09-2023 take 40 mg by mouth once daily 40 mg, oral, Daily, First dose on Sat09/09/23 at 0945 Start: 09-26-2022 End: 03-25-2024 take 1 tablet by mouth once daily at bedtime for hyperlipidemia simvastatin (ZOCOR) 40 mg tablet Indications: Other hyperlipidemia Take 1 tablet by mouth daily at bedtime. For cholesterol. 90 tablet 3 03/25/2024 Active Start: 12-16-2012 End: 04-27-2022 take 1 tablet by mouth once daily at bedtime for hyperlipidemia simvastatin (ZOCOR) 40 mg tablet Indications: Other hyperlipidemia Take 1 tablet by mouth daily at bedtime. For cholesterol. 90 tablet 3 10/27/2021 04/27/2022 Discontinued Comment on above: Take 1 tablet by george th daily at bedtime. For cholesterol. 10 actuat tiotropium 0.0025 mg/actuat inhalation spray (1 source) Anticholinergic Start: take 1 dose by inhalation every three months 2 puff, inhalation, Daily RT, First dose on Sat09/09/23 at 0945, Label inhaler with 3 month expiration date after inserting canister. tirzepatide (MOUNJARO) 2.5 mg/0.5 mL pen injector (18 sources) Start: End: inject 2.5 mg by subcutaneous injection every week in the evening tirzepatide (MOUNJARO) 2.5 mg/0.5 mL pen injector Inject 2.5 mg subcutaneously one time a week. 2 mL 1 04/24/2024 1:51 PM EST 04/13/2024 07/06/2024 Discontinued (Discontinued by Patient) Start: 04-13-2024 inject 2.5 mg by sub cutaneous injection every week in the evening tirzepatide (MOUNJARO) 2.5 mg/0.5 mL pen injector Inject 2.5 mg subcutaneously one time a week. 2 mL 1 04/24/2024 1:51 PM EST 04/13/2024 Active Start: 04-13-2024 inject 2.5 mg by sub cutaneous injection every week tirzepatide (MOUNJARO) 2.5 mg/0.5 mL pen injector Inject 2.5 mg subcutaneously one time a week. 2 mL 1 04/13/2024 Active Start: 04-08-2024 End: 04-13-2024 inject 2.5 mg by subcutaneous injection every week tirzepatide (MOUNJARO) 2.5 mg/0.5 mL pen injector Inject 2.5 mg subcutaneously one time a week. 2 mL 1 04/08/2024 04/13/2024 Discontinued Start: 04-08-2024 inject 2.5 mg by sub cutaneous injection every week tirzepatide (MOUNJARO) 2.5 mg/0.5 mL pen injector Inject 2.5 mg subcutaneously one time a week. 2 mL 1 04/08/2024 Active Start: 04-08-2024 End: 04-08-2024 inject 2.5 mg by subcutaneous injection every week tirzepatide (MOUNJARO) 2.5 mg/0.5 mL pen injector Inject 2.5 mg subcutaneously one time a week. 2 mL 1 04/08/2024 04/08/2024 Discontinued Start: 04-10-2023 End: 07-03-2023 tirzepatide (MOUNJARO) 2.5 m g/0.5 mL pen injector Inject subcutaneously. 0 04/10/2023 07/03/2023 Discontinued (Other) Start: 04-10-2023 tirzepatide (M OUNJARO) 2.5 mg/0.5 mL pen injector Inject subcutaneously. 0 04/10/2023 Active Start: 04-10-2023 End: 05-08-2023 inject 2.5 mg by subcutaneous injection every week tirzepatide (MOUNJARO) 2.5 mg/0.5 mL pen injector Inject 2.5 mg subcutaneously one time a week. 2 mL 0 04/10/2023 05/08/2023 Discontinued (Dosage adjustment) Start: 04-10-2023 inject 2.5 mg by sub cutaneous injection every week tirzepatide (MOUNJARO) 2.5 mg/0.5 mL pen injector Inject 2.5 mg subcutaneously one time a week. 2 mL 0 04/10/2023 Active Comment on above: Inject 2.5 mg subcut aneously one time a week. Inject subcutaneousl y. tirzepatide (MOUNJARO) 5 mg/0.5 mL pen injector (20 sources) Start: inject 5 mg by subcutaneous injection every week tirzepatide (MOUNJARO) 5 mg/0.5 mL pen injector Inject 5 mg subcutaneously one time a week. 2 mL 1 09/21/2024 10:39 AM EDT 09/16/2024 Active Start: 09-16-2024 inject 5 mg by subcu taneous injection every week tirzepatide (MOUNJARO) 5 mg/0.5 mL pen injector Inject 5 mg subcutaneously one time a week. 2 mL 1 09/16/2024 Active Start: 07-16-2024 End: 09-16-2024 inject 5 mg by subcutaneous injection every week in the morning tirzepatide (MOUNJARO) 5 mg/0.5 mL pen injector Inject 5 mg subcutaneously one time a week. 2 mL 1 07/17/2024 8:50 AM EDT 07/16/2024 09/16/2024 Discontinued Start: 07-16-2024 inject 5 mg by subcu taneous injection every week in the morning tirzepatide (MOUNJARO) 5 mg/0.5 mL pen injector Inject 5 mg subcutaneously one time a week. 2 mL 1 07/17/2024 8:50 AM EDT 07/16/2024 Active Start: 07-16-2024 inject 5 mg by subcu taneous injection every week tirzepatide (MOUNJARO) 5 mg/0.5 mL pen injector Inject 5 mg subcutaneously one time a week. 2 mL 1 07/16/2024 Active Start: 05-08-2023 End: 06-05-2023 inject 5 mg by subcutaneous injection every week tirzepatide (MOUNJARO) 5 mg/0.5 mL pen injector Inject 5 mg subcutaneously one time a week. 2 mL 1 05/08/2023 06/05/2023 Discontinued (Dosage adjustment) Start: 05-08-2023 inject 5 mg by subcu taneous injection every week tirzepatide (MOUNJARO) 5 mg/0.5 mL pen injector Inject 5 mg subcutaneously one time a week. 2 mL 1 05/08/2023 Active Comment on above: Inject 5 mg subcutan eously one time a week. traMADol hydrochloride 50 mg oral tablet (20 sources) Opioid Agonist Start: take 50 mg by mouth every twelve hours as needed for pain, then take 200 mg by mouth once daily as needed for pain 50 mg, oral, Every 12 hours PRN, pain severe (7-10), first line, pain moderate (4-6), first line, Starting on Sat09/10/23 at 0955, Max of 200 mg daily for patients with CrCrl Start: 12-18-2021 End: 12-28-2022 take 50 mg by mouth every eight hours as needed Tramadol Discontinued 50 MG PO EVERY 8 HOURS NEEDED December 20, 2021 11:00pm December 27, 2021 8:11am Comment on above: Take 1 tablet by george every 8 hours as needed for pain for up to 7 days. 24 hr venlafaxine 150 mg extended release oral capsule (20 sources) Serotonin and Norepinephrine Reuptake Inhibitor Start: 09-24-19 take 1 capsule by mouth once daily venlafaxine ER (EFFEXOR XR) 150 mg 24 hr capsule Indications: Depressive disorder Take 1 capsule by mouth once daily. 90 capsule 1 09/23/2024 Active Start: 09-23-2023 End: 09-23-2024 take 1 capsule by mouth once daily venlafaxine ER (EFFEXOR XR) 75 mg 24 hr capsule Indications: Depressive disorder Take 1 capsule by mouth once daily. 90 capsule 3 07/06/2024 09/23/2024 Discontinued (Dosage adjustment) Start: 09-22-2022 End: 09-23-2023 take 2 capsules by mouth once daily at mealtime venlafaxine XR (Effexor-XR) 37.5 mg 24 hr capsule Take 2 capsules (75 mg) by mouth once daily. Take with food 09/22/2022 Active Start: 12-18-2021 End: 01-04-2023 take 1 capsule by mouth once daily at mealtime venlafaxine XR (Effexor-XR) 37.5 mg 24 hr capsule Take 1 capsule (37.5 mg) by mouth once daily. Take with food 09/22/2022 Active take 1 tablet by george once daily venlafaxine 37.5 mg oral tablet ; 1 tab(s) orally once a day Quantity: 0 Refills: 0 Ordered: 26-Jan-2022 Elizabeth Quesada Status: Discontinued Generic Substitution Allowed Comment on above: Take 1 capsule by [facility] once daily. Completed/Discontinued Medications Medication Drug Class(es) Dates Sig (Normalized) Sig (Original) atorvastatin 20 mg oral tablet (3 sources) HMG-CoA Reductase Inhibitor Start: 01-29-2022 End: 12-28-2022 atorvastatin (LIPITOR) 20 mg tablet Take 1 tablet by mouth. 0 01/29/2022 02/22/2022 Discontinued (Duplicate Entry) Comment on above: Take 1 tablet by george . baclofen 10 mg oral tablet (4 sources) gamma-Aminobuty shahnaz Acid-ergic Agonist Start: 10-23-2016 BACLOFEN 10 MG TABS twice daily BACLOFEN [id number] Johana Kovacs beta carotene 04990 unt oral capsule (4 sources) Start: 10-23-2016 BETA CAROTENE 27452 UNIT CAPS BETA CAROTENE [id number] Johana Kovacs bifidobacterium animalis [id number] unt / lactobacillus acidophilus [id number] unt oral capsule (9 sources) End: 06-27-2022 Probiotic CAPS USE DIRECTED. Quantity: 0 Refills: 0 Ordered: 27-Jun-2022 DO End : 27-Jun-2022 Complete cholecalciferol 0.025 mg oral tablet (20 sources) Vitamin D Start: 01-27-2018 End: 01-27-2018 take 2 tablets by mouth once daily at mealtime Cholecalciferol (Vitamin D3) (Vitamin D3) 1,000 UNIT tablet Discontinued 2000 UNIT PO DAILY WITH MEALS January 27, 2018 1:00am January 27, 2018 4:44pm cyclobenzaprine hydrochloride 5 mg oral tablet (5 sources) Muscle Relaxant Start: 12-22-2021 End: 02-22-2022 cyclobenzaprine (FLEXERIL) 5 mg tablet Take 1 tablet by mouth. 0 12/22/2021 02/22/2022 Discontinued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 respiratory abnormalities] Onset: 11-25-2022 12-28-2022 Episodic Other lower respiratory disease (1 source) Dyspnea, unspecified; Translations: [Dyspnea, unspecified] Onset: 07-09-2022 Episodic Other lower respiratory disease (3 sources) Other forms of dyspnea; Translations: [Other forms of dyspnea] Onset: 04-16-2022 Episodic Other lower respiratory disease (3 sources) Hypoxemia; Translations: [Hypoxemia] Onset: 04-16-2022 Episodic Other lower respiratory disease (2 sources) Shortness of breath; Translations: [Shortness of breath] Onset: 04-16-2022 Episodic Other lower respiratory disease (20 sources) Cough; Translations: [Cough] Resolved: 06-01-2010 06-01-2010 Episodic Other lower respiratory disease (2 sources) Chest pain on breathing; Translations: [Chest pain on breathing] Onset: 09-09-2023 09-09-2023 Episodic Other lower respiratory disease (1 source) History of chronic obstructive airway disease; Translations: [Personal history of other diseases of the respiratory system] 09-16-2023 Episodic Other lower respiratory disease (1 source) Chest pain on breathing; Translations: [Chest pain on breathing] Onset: 09-11-2023 Episodic Other non-traumatic joint disorders (5 sources) Pain in right knee; Translations: [Shoulder pain] Onset: 01-10-2012 11-21-2016 Episodic Other non-traumatic joint disorders (4 sources) Shoulder pain; Translations: [Pain in unspecified shoulder] Onset: 01-10-2012 01-10-2012 Episodic Other non-traumatic joint disorders (1 source) Pain in right hip; Translations: [Right hip pain] Onset: 09-23-2023 Episodic Pleurisy; pneumothorax; pulmonary collapse (2 sources) Atelectasis; Translations: [Pleural effusion, not elsewhere classified] Onset: 04-16-2022 Episodic Pneumonia (except that caused by tuberculosis or sexually transmitted disease) (5 sources) Infective pneumonia; Translations: [Pneumonia, organism unspecified] Onset: 01-29-2022 01-26-2022 Episodic Residual codes; unclassified (1 source) Procedure and treatment not carried out for other reasons; Translations: [Procedure and treatment not carried out for other reasons] Onset: 10-04-2022 Episodic Residual codes; unclassified (2 sources) Localized edema; Translations: [Localized edema] Onset: 09-09-2023 09-09-2023 Episodic Residual codes; unclassified (1 source) Altered mental status, unspecified; Translations: [Altered mental status, unspecified] Onset: 05-25-2024 Episodic Spondylosis; intervertebral disc disorders; other back problems (20 sources) Low back pain; Translations: [Backache] Onset: 09-26-2011 Resolved: 06-17-2017 10-23-2016 Episodic Unclassified (1 source) ABN LABS 01-26-2022 Comment on above: ABN LABS Unclassified (15 sources) Onset: 12-28-2022 Resolved: 03-05-2024 12-28-2022 Unclassified (2 sources) Other ventricular tachycardia (Multi); Translations: [Other ventricular tachycardia (Multi)] Onset: 10-16-2023 Unclassified (1 source) Acute coronary microvascular dysfunction (Multi); Translations: [Acute coronary microvascular dysfunction (Multi)] Onset: 09-09-2023 Unclassified (1 source) Ventricular tachycardia, unspecified (Multi); Translations: [Ventricular tachycardia, unspecified (Multi)] Onset: 07-14-2024 Unclassified (1 source) Other ventricular tachycardia; Translations: [Other ventricular tachycardia] Onset: 01-15-2024 Results Test Name Value Interpretation Reference Range Facility HEMOGLOBIN A1C (POC)on 09-23 HbA1c (Bld) [Mass fraction] 6.9 % Abnormal 4.3 - 5.6 % [facility] Comment on above: Location:[address], [address] Point of care (POC) Hemoglobin A1c (HGBA1C) testing is intended to assess glucose control and provide a management tool for patients known to have diabetes and their healthcare providers. Target HGBA1C levels may depend on specific clinical circumstances. POC HGBA1C is not intended for use as a diagnostic or screening test; laboratory-based testing should be used for diagnostic purposes. The following information is supplemental and may not be applicable to specific diabetes management situations: The POC device nurses superintendent provides a normal range of 4.2% to 6.5% for the HGBA1C POC test. However, the [place] Diabetes Association guidelines indicate that patients with HGBA1C in the range of 5.7% to 6.4% are at increased risk for development of diabetes and that intervention by lifestyle modification may be beneficial. A HGBA1C level greater than or equal to 6.5% is considered diagnostic of diabetes, pending confirmatory testing. Use of HGBA1C testing to evaluate glucose control may not be appropriate for patients with hemoglobin variants or other conditions (e.g. anemia) that alter red blood cell lifespan. Interpretation and review of laboratory results Abnormal [facility] HH, Hemoglobin AND Hematocri ton 09-16-2024 Hematocrit (Bld) [Volume fraction] 34.7 % Low 37-47 [facility] Comment on above: Performed By: #### L 500.3600, L100.0600 ####[facility] [address] [place], [address] Hemoglobin (Bld) [Mass/Vol] 11.1 g/dL Low 12.0-15.0 [facility] Comment on above: Performed By: #### L 500.3600, L100.0600 ####[facility] [address] [place], [address] Renal Profileon 09-16-2024 Albumin [Mass/Vol] 3.8 g/dL Normal 3.4-4.8 [facility] Comment on above: Performed By: #### L 500.3600, L100.0600 ####[facility] [address] [place], [address] BUN/CRE 20.5 RATIO High 10-20 [facility] Comment on above: Performed By: #### L 500.3600, L100.0600 ####[facility] [address] [place], [address] Calcium [Mass/Vol] 9.4 mg/dL Normal 7.6-11.0 [facility] Comment on above: Performed By: #### L 500.3600, L100.0600 ####[facility] [address] [place], [address] Chloride [Moles/Vol] 94 mmol/L Low 98-108 [facility] Comment on above: Performed By: #### L 500.3600, L100.0600 ####[facility] [address] [place], [address] CO2 [Moles/Vol] 24.1 mmol/L Normal 21.0-32.0 [facility] Comment on above: Performed By: #### L 500.3600, L100.0600 ####[facility] [address] [place], [address] Creatinine [Mass/Vol] 2.57 mg/dL High 0.70-1.20 [facility] Comment on above: Performed By: #### L 500.3600, L100.0600 ####[facility] [address] [place], [address] GAP 16 High 5-15 [facility] Comment on above: Performed By: #### L 500.3600, L100.0600 ####[facility] [address] [place], [address] GFR/1.73 sq M.predicted among non-blacks MDRD (S/P/Bld) [Vol rate/Area] 18 mL/min/{1.73_m2} Low >60 [facility] Comment on above: Result Comment: mL/m in/1.73m2 CKD-EPI Creatinine Equation (2020) Performed By: #### L 500.3600, L100.0600 ####[facility] [address] [place], [address] Glucose [Mass/Vol] 144 mg/dL High 70-99 [facility] Comment on above: Performed By: #### L 500.3600, L100.0600 ####[facility] [address] [place], [address] Phosphate [Mass/Vol] 5.0 mg/dL High 2.7-4.5 [facility] Comment on above: Performed By: #### L 500.3600, L100.0600 ####[facility] [address] [place], [address] Potassium [Moles/Vol] 4.3 mmol/L Normal 3.3-5.1 [facility] Comment on above: Performed By: #### L 500.3600, L100.0600 ####[facility] [address] [place], [address] Sodium [Moles/Vol] 134 mmol/L Normal 133-145 [facility] Comment on above: Performed By: #### L 500.3600, L100.0600 ####[facility] [address] [place], [address] Urea nitrogen [Mass/Vol] 53 mg/dL High 4-19 [facility] Comment on above: Performed By: #### L 500.3600, L100.0600 ####[facility] [address] [place], [address] CNPNon 09-11-2024 [facility] Telephone (INTMWS) -------- VAL ERICKSON ([id number]) 1945 F Date Time Provider Department 09/11/24 NATALIIA ORTIZ INTWS During your visit today, we recorded the following information about you: Nataliia Ortiz MD 09/11/2024 5:53 PM Signed Called by nurse Shanel, about increasing weight, no CP or Shortness of Breath from baseline I asked to increase the lasix from 20 mg to 40 mgs for 3 days. Nataliia Velasquez MD Allergies As of Date: 09/11/2024 Noted Allergy Reaction RYBELSUS (SEMAGLUTIDE) 07/10/2023 5 - Intolerance Comments: Uncontrollable indigestion LEVAQUIN (LEVOFLOXACIN) 12/29/2004 Comments: itching,diarrhea,dausea, burning skin SEASONAL ALLERGIES 08/19/2014 14 - Other: See Comments Comments: Sinus SULFA (SULFONAMIDE ANTIBIOTICS) 12/29/2004 Comments: rash and hives Date Reviewed: 08/19/2024 Reviewed by: Tessa Brock, [facility] - Fully Assessed Prescriptions as of 09/11/2024 - busPIRone (BUSPAR) 10 mg tablet Take 1 tablet by mouth two times a day. - tirzepatide (MOUNJARO) 5 mg/0.5 mL pen injector Inject 5 mg subcutaneously one time a week. - furosemide (LASIX) 20 mg tablet Take 1 tablet by mouth once daily. Take an extra 20 mg tablet daily as needed - venlafaxine ER (EFFEXOR XR) 75 mg 24 hr capsule Take 1 capsule by mouth once daily. - insulin glargine (LANTUS SOLOSTAR U-100 INSULIN) 100 unit/mL (3 mL) Inject 45 Units subcutaneously daily at bedtime. - gabapentin (NEURONTIN) 300 mg capsule Take 1 capsule by mouth two times a day for 180 days. - simvastatin (ZOCOR) 40 mg tablet Take 1 tablet by mouth daily at bedtime. For cholesterol. - Insulin [place], Disposable, 29 gauge x 1/2 Use once daily as directed. Dx E11.29 - empagliflozin (JARDIANCE) 10 mg tablet Take 1 tablet by mouth once daily. Prescribed by ballistics teacher - calcitriol (ROCALTROL) 0.5 mcg capsule Take 0.5 mcg by mouth. - clotrimazole (LOTRIMIN) 1 % cream Apply to affected area. - lidocaine (SALONPAS) 4 % patch Apply 1 Patch as directed. - hydrALAZINE (APRESOLINE) 25 mg tablet Take 25 mg by mouth three times a day. - metoprolol succinate ER (TOPROL XL) 50 mg 24 hr tablet Take 1 tablet by mouth once daily. Per Dr. Yulia Antoine, cardiology. - ogwwwllhqhr-spkscfwko-ez lanter (TRELEGY ELLIPTA) 100-62.5-25 mcg inhalation powder Inhale 1 Puff as instructed once daily. - docusate sodium (COLACE) 100 mg capsule Take 1 capsule by mouth as needed. - melatonin 5 mg tablet Take 2 tablets by mouth. - senna (SENOKOT) 8.6 mg tab Take 1 tablet by mouth as needed. - Vit C-Vit F-Mtkaot-HyLr-Lutein (PRESERVISION LUTEIN) 226 mg-200 unit -5 mg-0.8 mg cap Take 1 capsule by mouth once daily. - blood sugar diagnostic ([employer] CorporationTOUCH ULTRA TEST) test strip Test blood sugar(s) 2 times daily. - epoetin zari (PROCRIT,EPOGEN) 10,000 unit/mL injection Inject 10,000 Units subcutaneously q 4 WEEKS. 12,000 Units every two weeks. - Lancets (FREESTYLE LANCETS) Misc Misc Test twice daily 250.02 Problem List As Of Date 09/11/2024 Noted Resolved Essential hypertension [I10] Generalized osteoarthritis [...] 11/17/2020 Lytic lesion of bone on x-ray [M89.8X9] 09/19/2016 06/17/2017 Controlled type 2 diabetes mellitus without com*10/09/2016 11/17/2020 Nonexudative age-related macular degeneration, *10/09/2016 Pseudophakia, both eyes [Z96.1] 10/09/2016 Posterior capsule opacification [H26.499] 10/09/2016 Vitreous floaters of both eyes [H43.393] 10/09/2016 06/17/2017 Regular astigmatism, bilateral [H52.223] 10/09/2016 06/17/2017 DDD (degenerative disc disease), thoracolumbar *11/15/2016 Controlled diabetes mellitus type 1 without com*10/24/2017 09/10/2018 Syndrome of inappropriate secretion of antidiur*01/29/2022 Hyponatremia [E87.1] 02/22/2022 (more content not included)... [facility] VAL ERICKSON ([id number]) 1945 F Date Time Provider Department 08/31/24 NEEL TURPIN [facility] During your visit today, we recorded the following information about you: Carole Lundy LPN 08/31/2024 3:26 PM Signed Taylor with [facility] PT calls to report PT will see pt once a week for 8 more weeks for mobility. Carole Lundy LPN Allergies As of Date: 08/31/2024 Noted Allergy Reaction RYBELSUS (SEMAGLUTIDE) 07/10/2023 5 - Intolerance Comments: Uncontrollable indigestion LEVAQUIN (LEVOFLOXACIN) 12/29/2004 Comments: itching,diarrhea,dausea, burning skin SEASONAL ALLERGIES 08/19/2014 14 - Other: See Comments Comments: Sinus SULFA (SULFONAMIDE ANTIBIOTICS) 12/29/2004 Comments: rash and hives Date Reviewed: 08/19/2024 Reviewed by: Tessa Brock [facility] - Fully Assessed Reason for Visit: PT POC [Other] Prescriptions as of 08/31/2024 - busPIRone (BUSPAR) 10 mg tablet Take 1 tablet by mouth two times a day. - tirzepatide (MOUNJARO) 5 mg/0.5 mL pen injector Inject 5 mg subcutaneously one time a week. - furosemide (LASIX) 20 mg tablet Take 1 tablet by mouth once daily. Take an extra 20 mg tablet daily as needed - venlafaxine ER (EFFEXOR XR) 75 mg 24 hr capsule Take 1 capsule by mouth once daily. - insulin glargine (LANTUS SOLOSTAR U-100 INSULIN) 100 unit/mL (3 mL) Inject 45 Units subcutaneously daily at bedtime. - gabapentin (NEURONTIN) 300 mg capsule Take 1 capsule by mouth two times a day for 180 days. - simvastatin (ZOCOR) 40 mg tablet Take 1 tablet by mouth daily at bedtime. For cholesterol. - Insulin [place], Disposable, 29 gauge x 1/2 Use once daily as directed. Dx E11.29 - empagliflozin (JARDIANCE) 10 mg tablet Take 1 tablet by mouth once daily. Prescribed by ballistics teacher - calcitriol (ROCALTROL) 0.5 mcg capsule Take 0.5 mcg by mouth. - clotrimazole (LOTRIMIN) 1 % cream Apply to affected area. - lidocaine (SALONPAS) 4 % patch Apply 1 Patch as directed. - hydrALAZINE (APRESOLINE) 25 mg tablet Take 25 mg by mouth three times a day. - metoprolol succinate ER (TOPROL XL) 50 mg 24 hr tablet Take 1 tablet by mouth once daily. Per Dr. Yulia Antoine, cardiology. - ihypqsheybf-xschlkvjm-xl lanter (TRELEGY ELLIPTA) 100-62.5-25 mcg inhalation powder Inhale 1 Puff as instructed once daily. - docusate sodium (COLACE) 100 mg capsule Take 1 capsule by mouth as needed. - melatonin 5 mg tablet Take 2 tablets by mouth. - senna (SENOKOT) 8.6 mg tab Take 1 tablet by mouth as needed. - Vit C-Vit N-Ndipjd-PmVh-Lutein (PRESERVISION LUTEIN) 226 mg-200 unit -5 mg-0.8 mg cap Take 1 capsule by mouth once daily. - blood sugar diagnostic ([employer]CH ULTRA TEST) test strip Test blood sugar(s) 2 times daily. - epoetin zari (PROCRIT,EPOGEN) 10,000 unit/mL injection Inject 10,000 Units subcutaneously q 4 WEEKS. 12,000 Units every two weeks. - Lancets (FREESTYLE LANCETS) Misc Misc Test twice daily 250.02 Problem List As Of Date 08/31/2024 Noted Resolved Essential hypertension [I10] Generalized osteoarthritis [...] 11/17/2020 Lytic lesion of bone on x-ray [M89.8X9] 09/19/2016 06/17/2017 Controlled type 2 diabetes mellitus without com*10/09/2016 11/17/2020 Nonexudative age-related macular degeneration, *10/09/2016 Pseudophakia, both eyes [Z96.1] 10/09/2016 Posterior capsule opacification [H26.499] 10/09/2016 Vitreous floaters of both eyes [H43.393] 10/09/2016 06/17/2017 Regular astigmatism, bilateral [H52.223] 10/09/2016 06/17/2017 DDD (degenerative disc disease), thoracolumbar *11/15/2016 Controlled diabetes mellitus type 1 without com*10/24/2017 09/10/2018 Syndrome of inappropriate secretion of antidiur*01/29/2022 Hyponatremia [E87.1] 02/22/2022 Hype (more content not included)... Normal [facility] CNOVon 08-19-2024 CNOV Office Visit (INTMWS ) -------- VAL ERICKSON ([id number]) 1945 F Date Time Provider Department 08/19/24 9:40 AM KACY MARY INTMWS During your visit today, we recorded the following information about you: Pulse Respiration Blood pressure Weight 88/minute 14/minute 124/86 121.6 kg Kacy Mary, VISUAL DISPLAY MANAGER.COCONUT COOKER 08/19/2024 9:46 AM Signed - Continue taking your Lasix 20 mg once daily as before. - Weigh yourself every few days at the same time--first thing in the morning before eating or drinking--and keep a record of your weight. - Continue using your oxygen at night and as needed during activity. - Keep your cardiology appointment on the . - Contact our office if you experience any rapid or significant increase in leg swelling, sudden weight gain, worsening shortness of breath, chest pain, or any new concerning symptoms. Kacy Mary, DAHLIA.COCONUT COOKER 08/19/2024 9:52 AM Signed CC: Patient presents with: Shortness of Breath: When ambulating HPI Recording using ambient AI software for draft documentation of the visit was discussed with the patient/authorized registered representative; all questions welcomed and answered. Patient/authorized registered representative agreed to proceed Val is an 79-year-old female with a history of CHF, presenting for evaluation of weight gain, lower extremity edema, and dyspnea. Weight Gain and Lower Extremity Edema: - Home health nurse noted weight gain, crackles in the left lower lobe, and increased lower extremity edema. - Temporary increase in Lasix by Dr. Estrada provided minimal improvement. - Last recorded weight on 07/06 was 260 lbs; current weight is 268 lbs. Last home weight 267.5 on 08/17 Dyspnea: - Dyspnea on exertion, no change in baseline. - Uses supplemental oxygen at night and PRN during activities like walking to the car. - Police Guard is attempting to wean Val off oxygen. - Denies orthopnea, paroxysmal nocturnal dyspnea, chest pain, palpitations, fever, chills, cough, or wheezing. CHF: - Baseline Lasix dosage is 20 mg daily. - Scheduled to see ballistics teacher on the . Review of Systems Constitutional: Negative for fatigue. Neurological: Negative for dizziness, syncope and light-headedness. PAST MEDICAL HISTORY Diagnosis Date Acute bronchitis Acute gastritis without mention of hemorrhage Allergic rhinitis due to animal (cat) (dog) hair and dander Anemia 06/17/2009 Anemia of chronic disease Benign neoplasm of colon Chest pain, unspecified Chronic combined systolic and diastolic heart failure (HCC) 11/25/2022 CKD (chronic kidney disease) 06/17/2009 Cough DDD [...] EXTRACTION HX 2016 both eyes catacts removed, [place] [facility] CHOLECYSTECTOMY 1970 COLONOSCOPY FLX DX W/COLLJ SPEC WHEN PFRMD 09/12/2012 Colonoscopy COLSC FLX W/RMVL OF TUMOR POLYP LESION SNARE TQ 07/11/2009 Polyp at 45cm - small CYSTOSCOPY, URETERAL STENT CHANGE/INSERTION EGD TRANSORAL BIOPSY SINGLE/MULTIPLE 07/11/2009 duodenitis, gastritis EGD TRANSORAL (more content not included)... Normal [facility] HH, Hemoglobin AND Hematocri ton 08-19-2024 Hematocrit (Bld) [Volume fraction] 34.5 % Low 37-47 [facility] Comment on above: Performed By: #### L 500.3600, L100.0600 ####[facility] [address] [place], [address] Hemoglobin (Bld) [Mass/Vol] 10.7 g/dL Low 12.0-15.0 [facility] Comment on above: Performed By: #### L 500.3600, L100.0600 ####[facility] [address] [place], [address] Renal Profileon 08-19-2024 Albumin [Mass/Vol] 3.9 g/dL Normal 3.4-4.8 [facility] Comment on above: Performed By: #### L 500.3600, L100.0600 ####[facility] [address] [place], [address] BUN/CRE 20.3 RATIO High 10-20 [facility] Comment on above: Performed By: #### L 500.3600, L100.0600 ####[facility] [address] [place], [address] Calcium [Mass/Vol] 9.6 mg/dL Normal 7.6-11.0 [facility] Comment on above: Performed By: #### L 500.3600, L100.0600 ####[facility] [address] [place], [address] Chloride [Moles/Vol] 99 mmol/L Normal 98-108 [facility] Comment on above: Performed By: #### L 500.3600, L100.0600 ####[facility] [address] [place], [address] CO2 [Moles/Vol] 23.5 mmol/L Normal 21.0-32.0 [facility] Comment on above: Performed By: #### L 500.3600, L100.0600 ####[facility] [address] [place], [address] Creatinine [Mass/Vol] 2.68 mg/dL High 0.70-1.20 [facility] Comment on above: Performed By: #### L 500.3600, L100.0600 ####[facility] [address] [place], [address] GAP 15 Normal 5-15 [facility] Comment on above: Performed By: #### L 500.3600, L100.0600 ####[facility] [address] [place], [address] GFR/1.73 sq M.predicted among non-blacks MDRD (S/P/Bld) [Vol rate/Area] 17 mL/min/{1.73_m2} Low >60 [facility] Comment on above: Result Comment: mL/m in/1.73m2 CKD-EPI Creatinine Equation (2020) Performed By: #### L 500.3600, L100.0600 ####[facility] [address] [place], [address] Glucose [Mass/Vol] 82 mg/dL Normal 70-99 [facility] Comment on above: Performed By: #### L 500.3600, L100.0600 ####[facility] [address] [place], [address] Phosphate [Mass/Vol] 4.8 mg/dL High 2.7-4.5 [facility] Comment on above: Performed By: #### L 500.3600, L100.0600 ####[facility] [address] [place], [address] Potassium [Moles/Vol] 4.3 mmol/L Normal 3.3-5.1 [facility] Comment on above: Performed By: #### L 500.3600, L100.0600 ####[facility] [address] [place], [address] Sodium [Moles/Vol] 137 mmol/L Normal 133-145 [facility] Comment on above: Performed By: #### L 500.3600, L100.0600 ####[facility] [address] [place], [address] Urea nitrogen [Mass/Vol] 54 mg/dL High 4-19 [facility] Comment on above: Performed By: #### L 500.3600, L100.0600 ####[facility] [address] [place], [address] CNPNon 08-17-2024 CNPN Telephone (INTMWS) -------- VAL ERICKSON ([id number]) 1945 F Date Time Provider Department 08/17/24 NEEL TURPIN INTMARCELO During your visit today, we recorded the following information about you: Alexandra Smith LPN 08/17/2024 1:25 PM Signed Shanel from [facility] [employer] [facility] calling patient weight today is 267.5 pounds. The furosemide increase for 3 days did not do much. Today left posterior lower lung has crackles, patient is more short of breath with activity her SPO2 drops into the 70's but recovers after she rests. Nurse has been telling her to wear her oxygen with activity. Patient had phoned her son and has appt at 9 am Saturday at [facility] for lab work, scheduled appt with Kacy Mary NP at 940 am to follow up with weight gain and lung sounds. Neel Turpin MD 08/17/2024 2:31 PM Signed Take furosemide 60 mg total (3 tablets) today and tomorrow. Appointment August 19 for reassessment as scheduled. Jesenia Glasgow LPN 08/17/2024 3:03 PM Signed Left message on identified vm for Shanel/Bailey , with below recommendation. Spoke to Val, given below recommendation, she verbalized understanding. Jesenia Glasgow LPN Allergies As of Date: 08/17/2024 Noted Allergy Reaction RYBELSUS (SEMAGLUTIDE) 07/10/2023 5 - Intolerance Comments: Uncontrollable indigestion LEVAQUIN (LEVOFLOXACIN) 12/29/2004 Comments: itching,diarrhea,dausea, burning skin SEASONAL ALLERGIES 08/19/2014 14 - Other: See Comments Comments: Sinus SULFA (SULFONAMIDE ANTIBIOTICS) 12/29/2004 Comments: rash and hives Date Reviewed: 08/05/2024 Reviewed by: Johana Cerna MA - Fully Assessed Reason for Visit: Patient Update [1234] Prescriptions as of 08/17/2024 - busPIRone (BUSPAR) 10 mg tablet Take 1 tablet by mouth two times a day. - tirzepatide (MOUNJARO) 5 mg/0.5 mL pen injector Inject 5 mg subcutaneously one time a week. - furosemide (LASIX) 20 mg tablet Take 1 tablet by mouth once daily. Take an extra 20 mg tablet daily as needed - venlafaxine ER (EFFEXOR XR) 75 mg 24 hr capsule Take 1 capsule by mouth once daily. - insulin glargine (LANTUS SOLOSTAR U-100 INSULIN) 100 unit/mL (3 mL) Inject 45 Units subcutaneously daily at bedtime. - gabapentin (NEURONTIN) 300 mg capsule Take 1 capsule by mouth two times a day for 180 days. - simvastatin (ZOCOR) 40 mg tablet Take 1 tablet by mouth daily at bedtime. For cholesterol. - Insulin [place], Disposable, 29 gauge x 1/2 Use once daily as directed. Dx E11.29 - empagliflozin (JARDIANCE) 10 mg tablet Take 1 tablet by mouth once daily. Prescribed by ballistics teacher - calcitriol (ROCALTROL) 0.5 mcg capsule Take 0.5 mcg by mouth. - clotrimazole (LOTRIMIN) 1 % cream Apply to affected area. - lidocaine (SALONPAS) 4 % patch Apply 1 Patch as directed. - hydrALAZINE (APRESOLINE) 25 mg tablet Take 25 mg by mouth three times a day. - metoprolol succinate ER (TOPROL XL) 50 mg 24 hr tablet Take 1 tablet by mouth once daily. Per Dr. Yulia Antoine, cardiology. - bznatlncgpu-jsjhfomfj-vc lanter (TRELEGY ELLIPTA) 100-62.5-25 mcg inhalation powder Inhale 1 Puff as instructed once daily. - docusate sodium (COLACE) 100 mg capsule Take 1 capsule by mouth as needed. - melatonin 5 mg tablet Take 2 tablets by mouth. - senna (SENOKOT) 8.6 mg tab Take 1 tablet by mouth as needed. - Vit C-Vit F-Larjav-MoPa-Lutein (PRESERVISION LUTEIN) 226 mg-200 unit -5 mg-0.8 mg cap Take 1 capsule by mouth once daily. - blood sugar diagnostic ([employer] ULTRA TEST) test strip Test blood sugar(s) 2 times daily. - epoetin zari (PROCRIT,EPOGEN) 10,000 unit/mL injection Inject 10,000 Units subcutaneously q 4 WEEKS. 12,000 Units every two weeks. - Lancets (FREESTYLE LANCETS) Misc Misc Test twice daily 250.02 Problem List As Of Date 08/17/2024 Noted Resolved Essential hypertension [I10] Generalized osteoarthritis [...] Myopia [H52.10] 08/19/2014 06/17/2017 Regular astigmatism [H52.229] 06 (more content not included)... Normal [facility] 08-12-2024 CNPN Telephone (INTMWS) -------- VAL ERICKSON ([id number]) 1945 F Date Time Provider Department 08/12/24 NEEL TURPIN INTMWS During your visit today, we recorded the following information about you: Elizabeth Obando RN 08/12/2024 4:50 PM Signed Lata Nurse with [facility] calling to report patient has had an 8 pound weight gain in 1 week. Reports no increased swelling-remains with 1+ pitting lower extremity edema. No SOB or breathing difficulties. Reports her vitals are stable and lung sounds are clear. Pt sees Cardiology on 09/02/24. No call back needed to Lata unless PCP has advise/orders. SYLVAIN Byrd Victor H, MD 08/12/2024 5:30 PM Signed Increase furosemide to 40 mg daily for 3 days, then resume 20 mg daily. Jesenia Glasgow LPN 08/13/2024 9:22 AM Signed Lata/Nurse notified, she read back order. Jesenia Glasgow LPN Allergies As of Date: 08/12/2024 Noted Allergy Reaction RYBELSUS (SEMAGLUTIDE) 07/10/2023 5 - Intolerance Comments: Uncontrollable indigestion LEVAQUIN (LEVOFLOXACIN) 12/29/2004 Comments: itching,diarrhea,dausea, burning skin SEASONAL ALLERGIES 08/19/2014 14 - Other: See Comments Comments: Sinus SULFA (SULFONAMIDE ANTIBIOTICS) 12/29/2004 Comments: rash and hives Date Reviewed: 08/05/2024 Reviewed by: Johana Cerna MA - Fully Assessed Reason for Visit: Patient Update [1234] Primary Visit Diagnosis:Chronic combined systolic and diastolic heart failure (HCC) [I50.42] Prescriptions as of 08/13/2024 - busPIRone (BUSPAR) 10 mg tablet Take 1 tablet by mouth two times a day. - tirzepatide (MOUNJARO) 5 mg/0.5 mL pen injector Inject 5 mg subcutaneously one time a week. - furosemide (LASIX) 20 mg tablet Take 1 tablet by mouth once daily. Take an extra 20 mg tablet daily as needed - venlafaxine ER (EFFEXOR XR) 75 mg 24 hr capsule Take 1 capsule by mouth once daily. - insulin glargine (LANTUS SOLOSTAR U-100 INSULIN) 100 unit/mL (3 mL) Inject 45 Units subcutaneously daily at bedtime. - gabapentin (NEURONTIN) 300 mg capsule Take 1 capsule by mouth two times a day for 180 days. - simvastatin (ZOCOR) 40 mg tablet Take 1 tablet by mouth daily at bedtime. For cholesterol. - Insulin [place], Disposable, 29 gauge x 1/2 Use once daily as directed. Dx E11.29 - empagliflozin (JARDIANCE) 10 mg tablet Take 1 tablet by mouth once daily. Prescribed by ballistics teacher - calcitriol (ROCALTROL) 0.5 mcg capsule Take 0.5 mcg by mouth. - clotrimazole (LOTRIMIN) 1 % cream Apply to affected area. - lidocaine (SALONPAS) 4 % patch Apply 1 Patch as directed. - hydrALAZINE (APRESOLINE) 25 mg tablet Take 25 mg by mouth three times a day. - metoprolol succinate ER (TOPROL XL) 50 mg 24 hr tablet Take 1 tablet by mouth once daily. Per Dr. Yulia Antoine, cardiology. - tgqwkpwkssv-dcyjlakcb-lm lanter (TRELEGY ELLIPTA) 100-62.5-25 mcg inhalation powder Inhale 1 Puff as instructed once daily. - docusate sodium (COLACE) 100 mg capsule Take 1 capsule by mouth as needed. - melatonin 5 mg tablet Take 2 tablets by mouth. - senna (SENOKOT) 8.6 mg tab Take 1 tablet by mouth as needed. - Vit C-Vit K-Rjigii-BkJi-Lutein (PRESERVISION LUTEIN) 226 mg-200 unit -5 mg-0.8 mg cap Take 1 capsule by mouth once daily. - blood sugar diagnostic ([employer] CorporationTOUCH ULTRA TEST) test strip Test blood sugar(s) 2 times daily. - epoetin zari (PROCRIT,EPOGEN) 10,000 unit/mL injection Inject 10,000 Units subcutaneously q 4 WEEKS. 12,000 Units every two weeks. - Lancets (FREESTYLE LANCETS) Misc Misc Test twice daily 250.02 Problem List As Of Date 08/12/2024 Noted Resolved Essential hypertension [I10] Generalized osteoarthritis [...] 11/17/2020 Lytic lesion of bone on x-ray [M89.8X9] 09/19/2016 (more content not included)... Normal [facility] CNPNon 08-06-2024 CNPN Telephone (INTMWS) -------- VAL ERICKSON ([id number]) 1945 F Date Time Provider Department 08/06/24 NEEL TURPIN INTMWS During your visit today, we recorded the following information about you: Irene Paredes RN 08/06/2024 10:06 AM Signed Ezra PT from [facility] calls and states that he needs orders for additional physical therapy visit for week of August 16. This visit is for patient to be re-certified for physical therapy. Please review and advise, SYLVAIN Santamaria Victor H, MD 08/06/2024 2:46 PM Signed Amilcar PT recert. Elizabeth Aguilar RN 08/06/2024 3:57 PM Signed Ezra PT from [facility] called and is notified of providers message and instructions. He voices understanding. Elizabeth Aguilar RN Allergies As of Date: 08/06/2024 Noted Allergy Reaction RYBELSUS (SEMAGLUTIDE) 07/10/2023 5 - Intolerance Comments: Uncontrollable indigestion LEVAQUIN (LEVOFLOXACIN) 12/29/2004 Comments: itching,diarrhea,dausea, burning skin SEASONAL ALLERGIES 08/19/2014 14 - Other: See Comments Comments: Sinus SULFA (SULFONAMIDE ANTIBIOTICS) 12/29/2004 Comments: rash and hives Date Reviewed: 08/05/2024 Reviewed by: Johana Cerna MA - Fully Assessed Reason for Visit: Physical therapy Order [Other] Prescriptions as of 08/06/2024 - busPIRone (BUSPAR) 10 mg tablet Take 1 tablet by mouth two times a day. - tirzepatide (MOUNJARO) 5 mg/0.5 mL pen injector Inject 5 mg subcutaneously one time a week. - furosemide (LASIX) 20 mg tablet Take 1 tablet by mouth once daily. Take an extra 20 mg tablet daily as needed - venlafaxine ER (EFFEXOR XR) 75 mg 24 hr capsule Take 1 capsule by mouth once daily. - insulin glargine (LANTUS SOLOSTAR U-100 INSULIN) 100 unit/mL (3 mL) Inject 45 Units subcutaneously daily at bedtime. - gabapentin (NEURONTIN) 300 mg capsule Take 1 capsule by mouth two times a day for 180 days. - simvastatin (ZOCOR) 40 mg tablet Take 1 tablet by mouth daily at bedtime. For cholesterol. - Insulin [place], Disposable, 29 gauge x 1/2 Use once daily as directed. Dx E11.29 - empagliflozin (JARDIANCE) 10 mg tablet Take 1 tablet by mouth once daily. Prescribed by ballistics teacher - calcitriol (ROCALTROL) 0.5 mcg capsule Take 0.5 mcg by mouth. - clotrimazole (LOTRIMIN) 1 % cream Apply to affected area. - lidocaine (SALONPAS) 4 % patch Apply 1 Patch as directed. - hydrALAZINE (APRESOLINE) 25 mg tablet Take 25 mg by mouth three times a day. - metoprolol succinate ER (TOPROL XL) 50 mg 24 hr tablet Take 1 tablet by mouth once daily. Per Dr. Yulia Antoine, cardiology. - zgkzzvwrmrb-ygnrcphqa-pq lanter (TRELEGY ELLIPTA) 100-62.5-25 mcg inhalation powder Inhale 1 Puff as instructed once daily. - docusate sodium (COLACE) 100 mg capsule Take 1 capsule by mouth as needed. - melatonin 5 mg tablet Take 2 tablets by mouth. - senna (SENOKOT) 8.6 mg tab Take 1 tablet by mouth as needed. - Vit C-Vit I-Cjmajm-ImDd-Lutein (PRESERVISION LUTEIN) 226 mg-200 unit -5 mg-0.8 mg cap Take 1 capsule by mouth once daily. - blood sugar diagnostic ([employer] CorporationTOUCH ULTRA TEST) test strip Test blood sugar(s) 2 times daily. - epoetin zari (PROCRIT,EPOGEN) 10,000 unit/mL injection Inject 10,000 Units subcutaneously q 4 WEEKS. 12,000 Units every two weeks. - Lancets (FREESTYLE LANCETS) Misc Misc Test twice daily 250.02 Problem List As Of Date 08/06/2024 Noted Resolved Essential hypertension [I10] Generalized osteoarthritis [...] 11/17/2020 Lytic lesion of bone on x-ray [M89.8X9] 09/19/2016 06/17/2017 Controlled type 2 diabetes mellitus without com*10/09/2016 11/17/2020 Nonexudative age-related macular degeneration, *10/09/2016 Pseudophakia, both eyes [Z96.1] 10/09/2016 Posterior capsule (more content not included)... Normal [facility] CNOVon 08-05-2024 CNOV Office Visit (INTMWS ) -------- GEORGINAVAL ([id number]) 1945 F Date Time Provider Department 08/05/24 10:20 AM KACY MARY INTMWS During your visit today, we recorded the following information about you: Pulse Respiration Blood pressure 82/minute 12/minute 132/80 Kacy Mary, VISUAL DISPLAY MANAGER.[employer] COOKER 08/05/2024 11:55 AM Signed CC: Patient presents with: Follow Up: 4 weeks HPI Recording using [employer] software for draft documentation of the visit was discussed with the patient/authorized registered representative; all questions welcomed and answered. Patient/authorized registered representative agreed to proceed Val is a 79-year-old female, with a history of anxiety and DM, presenting for follow-up on anxiety management. She is accompanied by her son, who is providing additional history. Val was last seen for anxiety on 07/06/2024. She was initially prescribed buspirone 5 mg BID while admitted to a SNF for physical therapy 1 month prior. She reported that this dosage was ineffective in managing her anxiety. Her son notes that her anxiety exacerbates feelings of being a burden and wishing for . Val denies worsening depression but acknowledges that increased anxiety intensifies these feelings. She is also taking venlafaxine 75 mg daily, which was previously prescribed. The buspirone dosage was increased to 10 mg BID, and Val started this higher dose on the same day it was prescribed. She reports that the increased dosage has helped manage her anxiety. Her son also observes a noticeable improvement in her anxiety symptoms. Val was prescribed Mounjaro for DM management before sustaining a hip fracture. During her hospitalization and subsequent stay at a SNF, the medication was withheld due to concerns about her renal function. Since her discharge, her pharmacist has increased the Mounjaro dosage, but Val has not yet started the new dosage. Her son expresses concern about the potential impact of Mounjaro on her renal function and seeks guidance on whether to resume the medication. Review of Systems See HPI PAST MEDICAL [...] EXTRACTION HX 2016 both eyes catacts removed, [facility] CHOLECYSTECTOMY 1970 COLONOSCOPY FLX DX [...] cuff repair, Right PAST SURGICAL HISTORY OF 1960 Right ureteral kink, hydronephrosis. PAST (more content not included)... Normal [facility] 07-29-2024 [facility] Telephone (INTMWS) -------- VAL ERICKSON ([id number]) 1945 F Date Time Provider Department 07/29/24 NEEL TURPIN INTMWS During your visit today, we recorded the following information about you: Irene Paredes, RN 07/29/2024 8:57 AM Signed Shanel from [facility] calls with Medication clarification on Xarelto. Patient has not been taking medication. Patient was given 26 tablets at discharge from [facility] on 05/25/2024. Medication was for DVT prophylactic. Shanel calling to see if medication can be discontinued from medication list. Please review and advise, Can leave a detailed message. SYLVAIN Santamaria Victor H, MD 07/29/2024 2:27 PM Signed Discontinue Xarelto 10 mg daily. Jesenia Glasgow LPN 07/29/2024 2:48 PM Signed Below response left on identified vm. Jesenia Glasgow LPN Allergies As of Date: 07/29/2024 Noted Allergy Reaction RYBELSUS (SEMAGLUTIDE) 07/10/2023 5 - Intolerance Comments: Uncontrollable indigestion LEVAQUIN (LEVOFLOXACIN) 12/29/2004 Comments: itching,diarrhea,dausea, burning skin SEASONAL ALLERGIES 08/19/2014 14 - Other: See Comments Comments: Sinus SULFA (SULFONAMIDE ANTIBIOTICS) 12/29/2004 Comments: rash and hives Date Reviewed: 07/16/2024 Reviewed by: Tessa Brock RP - Fully Assessed Reason for Visit: Medication Problem [65] Prescriptions as of 07/29/2024 - tirzepatide (MOUNJARO) 5 mg/0.5 mL pen injector Inject 5 mg subcutaneously one time a week. - furosemide (LASIX) 20 mg tablet Take 1 tablet by mouth once daily. Take an extra 20 mg tablet daily as needed - venlafaxine ER (EFFEXOR XR) 75 mg 24 hr capsule Take 1 capsule by mouth once daily. - insulin glargine (LANTUS SOLOSTAR U-100 INSULIN) 100 unit/mL (3 mL) Inject 45 Units subcutaneously daily at bedtime. - busPIRone (BUSPAR) 10 mg tablet Take 1 tablet by mouth two times a day. - gabapentin (NEURONTIN) 300 mg capsule Take 1 capsule by mouth two times a day for 180 days. - simvastatin (ZOCOR) 40 mg tablet Take 1 tablet by mouth daily at bedtime. For cholesterol. - Insulin [place], Disposable, 29 gauge x 1/2 Use once daily as directed. Dx E11.29 - empagliflozin (JARDIANCE) 10 mg tablet Take 1 tablet by mouth once daily. Prescribed by ballistics teacher - calcitriol (ROCALTROL) 0.5 mcg capsule Take 0.5 mcg by mouth. - clotrimazole (LOTRIMIN) 1 % cream Apply to affected area. - lidocaine (SALONPAS) 4 % patch Apply 1 Patch as directed. - hydrALAZINE (APRESOLINE) 25 mg tablet Take 25 mg by mouth three times a day. - metoprolol succinate ER (TOPROL XL) 50 mg 24 hr tablet Take 1 tablet by mouth once daily. Per Dr. Yulia Antoine, cardiology. - rczafssyotq-wwxvixfrs-fp lanter (TRELEGY ELLIPTA) 100-62.5-25 mcg inhalation powder Inhale 1 Puff as instructed once daily. - docusate sodium (COLACE) 100 mg capsule Take 1 capsule by mouth as needed. - melatonin 5 mg tablet Take 2 tablets by mouth. - senna (SENOKOT) 8.6 mg tab Take 1 tablet by mouth as needed. - Vit C-Vit I-Lmrmrf-RhXj-Lutein (PRESERVISION LUTEIN) 226 mg-200 unit -5 mg-0.8 mg cap Take 1 capsule by mouth once daily. - blood sugar diagnostic ([employer] CorporationTOUCH ULTRA TEST) test strip Test blood sugar(s) 2 times daily. - epoetin zari (PROCRIT,EPOGEN) 10,000 unit/mL injection Inject 10,000 Units subcutaneously q 4 WEEKS. 12,000 Units every two weeks. - Lancets (FREESTYLE LANCETS) Misc Misc Test twice daily 250.02 Medication notes this encounter RIVAROXABAN 10 MG TABLET >> Neel Turpin MD 07/29/2024 2:26 PM DVT prophylaxis Problem List As Of Date 07/29/2024 Noted Resolved Essential hypertension [I10] Generalized osteoarthritis [...] 11/17/2020 Lytic lesion of bone on x-ray [M89.8X9] 09/19/2016 06/17/2017 Controll (more content not included)... Normal [facility] Ferritinon 07-22-2024 Ferritin [Mass/Vol] 93 ng/mL Normal 22-378 [facility] Comment on above: Performed By: #### L 503.6030, L503.6550, L100.0600, L500.3600 ####[facility] [address] [place], [address] HH, Hemoglobin AND Hematocr iton 07-22-2024 Hematocrit (Bld) [Volume fraction] 32.8 % Low 37-47 [facility] Comment on above: Performed By: #### L 503.6030, L503.6550, L100.0600, L500.3600 ####[facility] [address] [place], [address] Hemoglobin (Bld) [Mass/Vol] 10.3 g/dL Low 12.0-15.0 [facility] Comment on above: Performed By: #### L 503.6030, L503.6550, L100.0600, L500.3600 ####[facility] [address] [place], [address] Iron+Iron Binding Capacityon 07-22-2024 Iron [Mass/Vol] 59 ug/dL Normal 50-170 [facility] Comment on above: Performed By: #### L 503.6030, L503.6550, L100.0600, L500.3600 ####[facility] [address] [place], [address] IRON SATURATION 19.0 Normal 13-59 [facility] Comment on above: Performed By: #### L 503.6030, L503.6550, L100.0600, L500.3600 ####[facility] [address] [place], [address] TIBC 314 ug/dL Normal 250-450 [facility] Comment on above: Performed By: #### L 503.6030, L503.6550, L100.0600, L500.3600 ####[facility] [address] [place], [address] UIBC 255 ug/dL Normal 228-428 [facility] Comment on above: Performed By: #### L 503.6030, L503.6550, L100.0600, L500.3600 ####[facility] [address] [place], [address] Renal Profileon 07-22-2024 Albumin [Mass/Vol] 4.0 g/dL Normal 3.4-4.8 [facility] Comment on above: Performed By: #### L 503.6030, L503.6550, L100.0600, L500.3600 ####[facility] [address] [place], [address] BUN/CRE 27.8 RATIO High 10-20 [facility] Comment on above: Performed By: #### L 503.6030, L503.6550, L100.0600, L500.3600 ####[facility] [address] [place], [address] Calcium [Mass/Vol] 9.9 mg/dL Normal 7.6-11.0 [facility] Comment on above: Performed By: #### L 503.6030, L503.6550, L100.0600, L500.3600 ####[facility] [address] [place], [address] Chloride [Moles/Vol] 105 mmol/L Normal 98-108 [facility] Comment on above: Performed By: #### L 503.6030, L503.6550, L100.0600, L500.3600 ####[facility] [address] [place], [address] CO2 [Moles/Vol] 21.0 mmol/L Normal 21.0-32.0 [facility] Comment on above: Performed By: #### L 503.6030, L503.6550, L100.0600, L500.3600 ####[facility] [address] [place], [address] Creatinine [Mass/Vol] 2.31 mg/dL High 0.70-1.20 [facility] Comment on above: Performed By: #### L 503.6030, L503.6550, L100.0600, L500.3600 ####[facility] [address] [place], [address] GAP 16 High 5-15 [facility] Comment on above: Performed By: #### L 503.6030, L503.6550, L100.0600, L500.3600 ####[facility] [address] [place], [address] GFR/1.73 sq M.predicted among non-blacks MDRD (S/P/Bld) [Vol rate/Area] 21 mL/min/{1.73_m2} Low >60 [facility] Comment on above: Result Comment: mL/m in/1.73m2 CKD-EPI Creatinine Equation (2020) Performed By: #### L 503.6030, L503.6550, L100.0600, L500.3600 ####[facility] [address] [place], [address] Glucose [Mass/Vol] 99 mg/dL Normal 70-99 [facility] Comment on above: Performed By: #### L 503.6030, L503.6550, L100.0600, L500.3600 ####[facility] [address] [place], [address] Phosphate [Mass/Vol] 4.6 mg/dL High 2.7-4.5 [facility] Comment on above: Performed By: #### L 503.6030, L503.6550, L100.0600, L500.3600 ####[facility] [address] [place], [address] Potassium [Moles/Vol] 4.9 mmol/L Normal 3.3-5.1 [facility] Comment on above: Performed By: #### L 503.6030, L503.6550, L100.0600, L500.3600 ####[facility] [address] [place], [address] Sodium [Moles/Vol] 142 mmol/L Normal 133-145 [facility] Comment on above: Performed By: #### L 503.6030, L503.6550, L100.0600, L500.3600 ####[facility] [address] [place], [address] Urea nitrogen [Mass/Vol] 64 mg/dL High 4-19 [facility] Comment on above: Performed By: #### L 503.6023, L503.6529, L100.0600, L500.5480 ####[facility] [address] [place], [address] [facility] Telephone ([facility]) -------- VAL ERICKSON ([id number]) 1945 F Date Time Provider Department 07/18/24 TESSA BROCK [facility] During your visit today, we recorded the following information about you: Marly Condon 07/18/2024 9:02 AM Signed Val is calling Tessa Brock [facility] today with concern regarding Medication Problem (Ozempic) Patient has cost concerns about the medication and does not want it sent to the pharmacy. Please call her to discuss [phone] Patient has been identified by name and birthdate. Duration of symptoms: N/A Person calling: self Call patient at: at home [phone] (home) [phone] (cell) Was an appointment scheduled: No Closing statement: Tessa Beauchamp [facility] 07/20/2024 9:32 AM Signed Called and spoke with patient. States she received a letter from [facility] regarding cost/unable to get the weekly shots. States she discussed with her son about waiting to start her Mounjaro until after her next lab results. Reports the following BG readings in the mornin, 120, 130. Discussed Mounjaro was sent to [facility] as discussed last week and appears to have $0 copay. Patient states she still has 3 doses of Mounjaro 2.5mg at home. States she would like to wait to resume until after labs done this week and will contact PharmD after labs once deciding on resuming Mounjaro. Tessa Brock, PharmD, [facility] Primary [facility] Clinical Wine And Spir[employer] Clerk Allergies As of Date: 07/18/2024 Noted Allergy Reaction RYBELSUS (SEMAGLUTIDE) 07/10/2023 5 - Intolerance Comments: Uncontrollable indigestion LEVAQUIN (LEVOFLOXACIN) 12/29/2004 Comments: itching,diarrhea,dausea, burning skin SEASONAL ALLERGIES 08/19/2014 14 - Other: See Comments Comments: Sinus SULFA (SULFONAMIDE ANTIBIOTICS) 12/29/2004 Comments: rash and hives Date Reviewed: 07/16/2024 Reviewed by: Tessa Brock, [facility] - Fully Assessed Reason for Visit: Medication Problem [65] Cmt: Ozempic Prescriptions as of 07/20/2024 - tirzepatide (MOUNJARO) 5 mg/0.5 mL pen injector Inject 5 mg subcutaneously one time a week. - furosemide (LASIX) 20 mg tablet Take 1 tablet by mouth once daily. Take an extra 20 mg tablet daily as needed - rivaroxaban (XARELTO) 10 mg tablet Take 10 mg by mouth once daily. - venlafaxine ER (EFFEXOR XR) 75 mg 24 hr capsule Take 1 capsule by mouth once daily. - insulin glargine (LANTUS SOLOSTAR U-100 INSULIN) 100 unit/mL (3 mL) Inject 45 Units subcutaneously daily at bedtime. - busPIRone (BUSPAR) 10 mg tablet Take 1 tablet by mouth two times a day. - gabapentin (NEURONTIN) 300 mg capsule Take 1 capsule by mouth two times a day for 180 days. - simvastatin (ZOCOR) 40 mg tablet Take 1 tablet by mouth daily at bedtime. For cholesterol. - Insulin [place], Disposable, 29 gauge x 1/2 Use once daily as directed. Dx E11.29 - empagliflozin (JARDIANCE) 10 mg tablet Take 1 tablet by mouth once daily. Prescribed by ballistics teacher - calcitriol (ROCALTROL) 0.5 mcg capsule Take 0.5 mcg by mouth. - clotrimazole (LOTRIMIN) 1 % cream Apply to affected area. - lidocaine (SALONPAS) 4 % patch Apply 1 Patch as directed. - hydrALAZINE (APRESOLINE) 25 mg tablet Take 25 mg by mouth three times a day. - metoprolol succinate ER (TOPROL XL) 50 mg 24 hr tablet Take 1 tablet by mouth once daily. Per Dr. Yulia Antoine, cardiology. - stpfaxptssb-fqiouohiz-tj lanter (TRELEGY ELLIPTA) 100-62.5-25 mcg inhalation powder Inhale 1 Puff as instructed once daily. - docusate sodium (COLACE) 100 mg capsule Take 1 capsule by mouth as needed. - melatonin 5 mg tablet Take 2 tablets by mouth. - senna (SENOKOT) 8.6 mg tab Take 1 tablet by mouth as needed. - Vit C-Vit K-Mfpvfk-PwPr-Lutein (PRESERVISION LUTEIN) 226 mg-200 unit -5 mg-0.8 mg cap Take 1 capsule by mouth once daily. - blood sugar diagnostic ([employer] ULTRA TEST) test strip Test blood sugar(s) 2 times daily. - epoetin zari (PROCRIT,EPOGEN) 10,000 unit/mL injection Inject 10,000 Units subcutaneously q 4 WEEKS. 12,000 Units every two weeks. - Lancets (FREESTYLE LANCETS) Misc Misc Test twice daily 250.02 Problem List As Of Date 07/18/2024 Noted Resolved Essential hypertension [I10] Generalized osteoarthritis [...] Acute gastritis without mention of hemorrhage [*10/24/2010 (more content not included)... [facility] VAL ERICKSON ([id number]) 1945 F Date Time Provider Department 07/18/24 NEEL TURPIN INTMWS During your visit today, we recorded the following information about you: Allergies As of Date: 07/18/2024 Noted Allergy Reaction RYBELSUS (SEMAGLUTIDE) 07/10/2023 5 - Intolerance Comments: Uncontrollable indigestion LEVAQUIN (LEVOFLOXACIN) 12/29/2004 Comments: itching,diarrhea,dausea, burning skin SEASONAL ALLERGIES 08/19/2014 14 - Other: See Comments Comments: Sinus SULFA (SULFONAMIDE ANTIBIOTICS) 12/29/2004 Comments: rash and hives Date Reviewed: 07/16/2024 Reviewed by: Tessa Brock [facility] - Fully Assessed Prescriptions as of 07/18/2024 - tirzepatide (MOUNJARO) 5 mg/0.5 mL pen injector Inject 5 mg subcutaneously one time a week. - furosemide (LASIX) 20 mg tablet Take 1 tablet by mouth once daily. Take an extra 20 mg tablet daily as needed - rivaroxaban (XARELTO) 10 mg tablet Take 10 mg by mouth once daily. - venlafaxine ER (EFFEXOR XR) 75 mg 24 hr capsule Take 1 capsule by mouth once daily. - insulin glargine (LANTUS SOLOSTAR U-100 INSULIN) 100 unit/mL (3 mL) Inject 45 Units subcutaneously daily at bedtime. - busPIRone (BUSPAR) 10 mg tablet Take 1 tablet by mouth two times a day. - gabapentin (NEURONTIN) 300 mg capsule Take 1 capsule by mouth two times a day for 180 days. - simvastatin (ZOCOR) 40 mg tablet Take 1 tablet by mouth daily at bedtime. For cholesterol. - Insulin [place], Disposable, 29 gauge x 1/2 Use once daily as directed. Dx E11.29 - empagliflozin (JARDIANCE) 10 mg tablet Take 1 tablet by mouth once daily. Prescribed by ballistics teacher - calcitriol (ROCALTROL) 0.5 mcg capsule Take 0.5 mcg by mouth. - clotrimazole (LOTRIMIN) 1 % cream Apply to affected area. - lidocaine (SALONPAS) 4 % patch Apply 1 Patch as directed. - hydrALAZINE (APRESOLINE) 25 mg tablet Take 25 mg by mouth three times a day. - metoprolol succinate ER (TOPROL XL) 50 mg 24 hr tablet Take 1 tablet by mouth once daily. Per Dr. Yulia Antoine, cardiology. - qvuyzqifgco-oqzudtpgt-gf lanter (TRELEGY ELLIPTA) 100-62.5-25 mcg inhalation powder Inhale 1 Puff as instructed once daily. - docusate sodium (COLACE) 100 mg capsule Take 1 capsule by mouth as needed. - melatonin 5 mg tablet Take 2 tablets by mouth. - senna (SENOKOT) 8.6 mg tab Take 1 tablet by mouth as needed. - Vit C-Vit N-Vdbruv-GyBe-Lutein (PRESERVISION LUTEIN) 226 mg-200 unit -5 mg-0.8 mg cap Take 1 capsule by mouth once daily. - blood sugar diagnostic ([employer] CorporationTOUCH ULTRA TEST) test strip Test blood sugar(s) 2 times daily. - epoetin zari (PROCRIT,EPOGEN) 10,000 unit/mL injection Inject 10,000 Units subcutaneously q 4 WEEKS. 12,000 Units every two weeks. - Lancets (FREESTYLE LANCETS) Misc Misc Test twice daily 250.02 Problem List As Of Date 07/18/2024 Noted Resolved Essential hypertension [I10] Generalized osteoarthritis [...] 11/17/2020 Lytic lesion of bone on x-ray [M89.8X9] 09/19/2016 06/17/2017 Controlled type 2 diabetes mellitus [...] with acute on chroni*02/22/2022 Hypoxemia [R09.02] 02/22/2022 Depressive disorder [F32.A] 07/06/2024 Frequent falls [R29. (more content not included)... [facility] (INTMWS) -------- GEORGINAVAL ([id number]) 1945 F Date Time Provider Department 07/10/24 NEEL TURPIN INTMWS During your visit today, we recorded the following information about you: Bruna Olea LPN 07/10/2024 8:48 AM Signed Lata from [facility] calling asking to add a child protective services social worker and home health aid. Irene Paredes RN 07/10/2024 10:22 AM Signed Shanel from [facility] calls and is asking if provider will ok orders for home health aide 2 times a week for 1 week and 1 time a week for remaining weeks? Patient also needs a consult. If this is not ok please give Shanel a call back other ramirez Shanel will schedule patient for home health aide since she is seeing patient today. Please review and advise, SYLVAIN Santamaria Naz M, APRN.[facility] 07/10/2024 11:44 AM Signed Okay for orders Kacy Mary APRN.[facility] Johana Cerna MA 07/10/2024 12:10 PM Signed Shanel was notified Johana Cerna MA Allergies As of Date: 07/10/2024 Noted Allergy Reaction RYBELSUS (SEMAGLUTIDE) 07/10/2023 5 - Intolerance Comments: Uncontrollable indigestion LEVAQUIN (LEVOFLOXACIN) 12/29/2004 Comments: itching,diarrhea,dausea, burning skin SEASONAL ALLERGIES 08/19/2014 14 - Other: See Comments Comments: Sinus SULFA (SULFONAMIDE ANTIBIOTICS) 12/29/2004 Comments: rash and hives Date Reviewed: 07/06/2024 Reviewed by: Kacy Mary APRN.[facility] - Fully Assessed Reason for Visit: Orders [681] Prescriptions as of 07/10/2024 - rivaroxaban (XARELTO) 10 mg tablet Take 10 mg by mouth once daily. - venlafaxine ER (EFFEXOR XR) 75 mg 24 hr capsule Take 1 capsule by mouth once daily. - insulin glargine (LANTUS SOLOSTAR U-100 INSULIN) 100 unit/mL (3 mL) Inject 45 Units subcutaneously daily at bedtime. - busPIRone (BUSPAR) 10 mg tablet Take 1 tablet by mouth two times a day. - furosemide (LASIX) 20 mg tablet Take 1 tablet by mouth once daily. Take an extra 20 mg tablet daily as needed - gabapentin (NEURONTIN) 300 mg capsule Take 1 capsule by mouth two times a day for 180 days. - simvastatin (ZOCOR) 40 mg tablet Take 1 tablet by mouth daily at bedtime. For cholesterol. - Insulin [place], Disposable, 29 gauge x 1/2 Use once daily as directed. Dx E11.29 - empagliflozin (JARDIANCE) 10 mg tablet Take 1 tablet by mouth once daily. Prescribed by ballistics teacher - calcitriol (ROCALTROL) 0.5 mcg capsule Take 0.5 mcg by mouth. - clotrimazole (LOTRIMIN) 1 % cream Apply to affected area. - lidocaine (SALONPAS) 4 % patch Apply 1 Patch as directed. - hydrALAZINE (APRESOLINE) 25 mg tablet Take 25 mg by mouth three times a day. - metoprolol succinate ER (TOPROL XL) 50 mg 24 hr tablet Take 1 tablet by mouth once daily. Per Dr. Yulia Antoine, cardiology. - ayqgkvmkfws-yglxcdpjw-ki lanter (TRELEGY ELLIPTA) 100-62.5-25 mcg inhalation powder Inhale 1 Puff as instructed once daily. - docusate sodium (COLACE) 100 mg capsule Take 1 capsule by mouth as needed. - melatonin 5 mg tablet Take 2 tablets by mouth. - senna (SENOKOT) 8.6 mg tab Take 1 tablet by mouth as needed. - Vit C-Vit M-Mnjbdl-SeKe-Lutein (PRESERVISION LUTEIN) 226 mg-200 unit -5 mg-0.8 mg cap Take 1 capsule by mouth once daily. - blood sugar diagnostic (ONETOUCH ULTRA TEST) test strip Test blood sugar(s) 2 times daily. - epoetin zari (PROCRIT,EPOGEN) 10,000 unit/mL injection Inject 10,000 Units subcutaneously q 4 WEEKS. 12,000 Units every two weeks. - Lancets (FREESTYLE LANCETS) Misc Misc Test twice daily 250.02 Problem List As Of Date 07/10/2024 Noted Resolved Essential hypertension [I10] Generalized osteoarthritis [...] 11/17/2020 Lytic lesion of bone on x-ray [M89.8X9] 09/19/2016 06/17/2017 Co (more content not included)... Normal [facility] CNOVon 07-06-2024 CNOV Office Visit (INTMWS ) -------- VAL ERICKSON ([id number]) 1945 F Date Time Provider Department 07/06/24 8:00 AM KACY MARY INTMWS During your visit today, we recorded the following information about you: Pulse Blood pressure Weight 86/minute 118/76 117.9 kg Kacy Mary, VISUAL DISPLAY MANAGER.[facility] 07/06/2024 8:30 AM Signed We discussed your recent health concerns and follow-up care after your discharge from the [facility] facility: - Anxiety and Depression: - I increased your Buspirone (BuSpar) to 10 mg twice daily to help manage your anxiety. This prescription has been sent to [facility]. If you have any remaining 5 mg tablets, you can take two tablets twice daily until they are finished. - Continue taking Venlafaxine (Effexor) as prescribed. You have enough until September, but I sent a refill to your pharmacy so it will be available when needed. - If your anxiety does not improve in two weeks, please call our office to discuss increasing the dose of Buspirone further. - Your anxiety may be contributing to your physical symptoms, such as sweating, shortness of breath, and feeling panicked. Please let us know if these symptoms worsen or do not improve. - Diabetes Management: - Continue taking Lantus 45 units as prescribed and monitor your blood sugar regularly. Your recent readings have been variable, with some higher levels likely related to anxiety. - I will schedule a follow-up with your clinical pharmacist, Yoni, to discuss your diabetes management and whether to restart Mounjaro. This can be a phone visit. - Fall Prevention and Physical Therapy: - You mentioned a recent fall in the shower. Please continue working with your physical and occupational therapists to address balance and strength issues. They can also help with strategies to prevent falls. - Ensure you use the safety equipment in your shower, such as grab bars and a shower seat, to reduce the risk of falling. - Your son is arranging for a chair with arms for your kitchen, which will provide additional support when sitting and standing. - Follow-Up Appointments: - I would like to see you in one month to assess how you are doing with the increased Buspirone dose and your anxiety management. - If you feel the Buspirone is not helping after two weeks, please call our office to discuss increasing the dose sooner. - I will also schedule a follow-up with your clinical pharmacist to review your diabetes management and discuss restarting Mounjaro. Please continue monitoring your symptoms and let us know if you have any concerns before your next visit. Kacy Mary, VISUAL DISPLAY MANAGER.[facility] 07/06/2024 8:45 AM Signed CC: Patient presents with: Hospital F/U HPI Recording using [employer] software for draft documentation of the visit was discussed with the patient/authorized registered representative; all questions welcomed and answered. Patient/authorized registered representative agreed to proceed Val is a 79-year-old female, with a history of right intertrochanteric femur fracture, pneumonia, Klebsiella UTI, and anxiety, presenting for follow-up after discharge from a [facility] facility. Val was initially admitted to [facility] on 04/28/24 for a right intertrochanteric femur fracture, which was surgically repaired on 04/29/24. She was then transferred to a [facility] facility for rehabilitation. During her stay, she was found unresponsive on 05/25/24 and was readmitted to [facility], where she was diagnosed with a right mid-lung infiltrate and Klebsiella UTI. She improved on antibiotics and was discharged back to the [facility] facility. She was discharged home on 06/25/24 and is currently receiving PT, OT, and home health nursing. Since returning home, Val reports a fall in the shower on Saturday morning, resulting in mild pain in her knee. She attributes the fall to her legs giving out and slipping while holding onto the shower handle. Her son notes that she tends to let go of support when feeling unstable, leading to falls. Therapy is reportedly addressing these issues. Val and her son report significant anxiety, particularly related to fear of falling. This anxiety manifests as diaphoresis, dyspnea, and a sense of impending fall, even during short walks or transfers. She is currently on venlafaxine 75 mg daily for depression and buspirone 5mg BID for anxiety, which was started approximately one month ago. Her son notes that the anxiety exacerbates feelings of being a burden and wishing for . She denies worsening depression but acknowledges that increased anxiety intensifies these feelings. She denies cough, new dyspnea, fever, chills, chest pain, palpitations, or new urinary symptoms. She reports chronic lower extremity edema, which is more pronounced today. She is under the care of a pulmono (more content not included)... [facility] VAL ERICKSON ([id number]) 1945 F Date Time Provider Department 06/29/24 NEEL TURPIN [facility] During your visit today, we recorded the following information about you: Carole Lundy LPN 06/29/2024 2:38 PM Signed Ezra with [facility] PT calls to report he saw pt today. PT will see pt twice a week x 3 weeks then once a week x 4 weeks for safety and mobility. Carole Lundy LPN Allergies As of Date: 06/29/2024 Noted Allergy Reaction RYBELSUS (SEMAGLUTIDE) 07/10/2023 5 - Intolerance Comments: Uncontrollable indigestion LEVAQUIN (LEVOFLOXACIN) 12/29/2004 Comments: itching,diarrhea,dausea, burning skin SEASONAL ALLERGIES 08/19/2014 14 - Other: See Comments Comments: Sinus SULFA (SULFONAMIDE ANTIBIOTICS) 12/29/2004 Comments: rash and hives Date Reviewed: 04/08/2024 Reviewed by: Tessa Brock [facility] - Fully Assessed Reason for Visit: PT POC [Other] Prescriptions as of 06/29/2024 - tirzepatide (MOUNJARO) 2.5 mg/0.5 mL pen injector Inject 2.5 mg subcutaneously one time a week. - furosemide (LASIX) 20 mg tablet Take 1 tablet by mouth once daily. Take an extra 20 mg tablet daily as needed - gabapentin (NEURONTIN) 300 mg capsule Take 1 capsule by mouth two times a day for 180 days. - simvastatin (ZOCOR) 40 mg tablet Take 1 tablet by mouth daily at bedtime. For cholesterol. - insulin glargine (LANTUS SOLOSTAR U-100 INSULIN) 100 unit/mL (3 mL) Inject 60 Units subcutaneously daily at bedtime. - Insulin [place], Disposable, 29 gauge x 1/2 Use once daily as directed. Dx E11.29 - venlafaxine ER (EFFEXOR XR) 75 mg 24 hr capsule Take 1 capsule by mouth once daily. - empagliflozin (JARDIANCE) 10 mg tablet Take 1 tablet by mouth once daily. Prescribed by ballistics teacher - calcitriol (ROCALTROL) 0.5 mcg capsule Take 0.5 mcg by mouth. - clotrimazole (LOTRIMIN) 1 % cream Apply to affected area. - lidocaine (SALONPAS) 4 % patch Apply 1 Patch as directed. - hydrALAZINE (APRESOLINE) 25 mg tablet Take 25 mg by mouth three times a day. - metoprolol succinate ER (TOPROL XL) 50 mg 24 hr tablet Take 1 tablet by mouth once daily. Per Dr. Yulia Antoine, cardiology. - pmbzjfqmsws-prwugwrbx-jc lanter (TRELEGY ELLIPTA) 100-62.5-25 mcg inhalation powder Inhale 1 Puff as instructed once daily. - docusate sodium (COLACE) 100 mg capsule Take 1 capsule by mouth as needed. - melatonin 5 mg tablet Take 2 tablets by mouth. - senna (SENOKOT) 8.6 mg tab Take 1 tablet by mouth as needed. - Vit C-Vit U-Sxmayu-MvEh-Lutein (PRESERVISION LUTEIN) 226 mg-200 unit -5 mg-0.8 mg cap Take 1 capsule by mouth once daily. - COMPOUNDED PRESCRIPTION Take 1 tablet by mouth twice daily. Plexus Bio-5 (Probiotic) - blood sugar diagnostic (N[employer] CorporationTOUCH ULTRA TEST) test strip Test blood sugar(s) 2 times daily. - epoetin zari (PROCRIT,EPOGEN) 10,000 unit/mL injection Inject 10,000 Units subcutaneously q 4 WEEKS. 12,000 Units every two weeks. - Lancets (FREESTYLE LANCETS) Misc Misc Test twice daily 250.02 Problem List As Of Date 06/29/2024 Noted Resolved Essential hypertension [I10] Generalized osteoarthritis [...] 11/17/2020 Lytic lesion of bone on x-ray [M89.8X9] 09/19/2016 06/17/2017 Controlled type 2 diabetes mellitus without com*10/09/2016 11/17/2020 Nonexudative age-related macular degeneration, *10/09/2016 Pseudophakia, both eyes [Z96.1] 10/09/2016 Posterior capsule opacification [H26.499] 10/09/2016 Vitreous floaters of both eyes [H43.393] 10/09/2016 06/17/2017 Regular astigmatism, bilateral [H52.223] 10/09/2016 06/17/2017 DDD (degenerative disc disease), thoracolumbar *11/15/2016 Controlled diabetes mellitus type 1 without com*10/24/2017 09/10/2018 Syndrome of inappropriate secretion (more content not included)... Normal [facility] Ferritinon 06-24-2024 Ferritin [Mass/Vol] 99 ng/mL Normal 22-378 [facility] Comment on above: Performed By: #### L 500.3600, L503.6030, L100.0600, L503.6550 ####[facility] [address] [place], [address] HH, Hemoglobin AND Hematocri ton 06-24-2024 Hematocrit (Bld) [Volume fraction] 30.1 % Low 37-47 [facility] Comment on above: Performed By: #### L 500.3600, L503.6030, L100.0600, L503.6550 ####[facility] [address] [place], [address] Hemoglobin (Bld) [Mass/Vol] 9.3 g/dL Low 12.0-15.0 [facility] Comment on above: Performed By: #### L 500.3600, L503.6030, L100.0600, L503.6550 ####[facility] [address] [place], [address] Iron+Iron Binding Capacityon 06-24-2024 Iron [Mass/Vol] 54 ug/dL Normal 50-170 [facility] Comment on above: Performed By: #### L 500.3600, L503.6030, L100.0600, L503.6550 ####[facility] [address] [place], [address] IRON SATURATION 19.0 Normal 13-59 [facility] Comment on above: Performed By: #### L 500.3600, L503.6030, L100.0600, L503.6550 ####[facility] [address] [place], [address] TIBC 291 ug/dL Normal 250-450 [facility] Comment on above: Performed By: #### L 500.3600, L503.6030, L100.0600, L503.6550 ####[facility] [address] [place], [address] UIBC 237 ug/dL Normal 228-428 [facility] Comment on above: Performed By: #### L 500.3600, L503.6030, L100.0600, L503.6550 ####[facility] [address] [place], [address] Renal Profileon 06-24-2024 Albumin [Mass/Vol] 3.9 g/dL Normal 3.4-4.8 [facility] Comment on above: Performed By: #### L 500.3600, L503.6030, L100.0600, L503.6550 ####[facility] [address] [place], [address] BUN/CRE 29.1 RATIO High 10-20 [facility] Comment on above: Performed By: #### L 500.3600, L503.6030, L100.0600, L503.6550 ####[facility] [address] [place], [address] Calcium [Mass/Vol] 10.3 mg/dL Normal 7.6-11.0 [facility] Comment on above: Performed By: #### L 500.3600, L503.6030, L100.0600, L503.6550 ####[facility] [address] [place], [address] Chloride [Moles/Vol] 101 mmol/L Normal 98-108 [facility] Comment on above: Performed By: #### L 500.3600, L503.6030, L100.0600, L503.6550 ####[facility] [address] [place], [address] CO2 [Moles/Vol] 22.7 mmol/L Normal 21.0-32.0 [facility] Comment on above: Performed By: #### L 500.3600, L503.6030, L100.0600, L503.6550 ####[facility] [address] [place], [address] Creatinine [Mass/Vol] 2.22 mg/dL High 0.70-1.20 [facility] Comment on above: Performed By: #### L 500.3600, L503.6030, L100.0600, L503.6550 ####[facility] [address] [place], [address] GAP 13 Normal 5-15 [facility] Comment on above: Performed By: #### L 500.3600, L503.6030, L100.0600, L503.6550 ####[facility] [address] [place], [address] GFR/1.73 sq M.predicted among non-blacks MDRD (S/P/Bld) [Vol rate/Area] 22 mL/min/{1.73_m2} Low >60 [facility] Comment on above: Result Comment: mL/m in/1.73m2 CKD-EPI Creatinine Equation (2020) Performed By: #### L 500.3600, L503.6030, L100.0600, L503.6550 ####[facility] [address] [place], [address] Glucose [Mass/Vol] 198 mg/dL High 70-99 [facility] Comment on above: Performed By: #### L 500.3600, L503.6030, L100.0600, L503.6550 ####[facility] [address] [place], [address] Phosphate [Mass/Vol] 4.5 mg/dL Normal 2.7-4.5 [facility] Comment on above: Performed By: #### L 500.3600, L503.6030, L100.0600, L503.6550 ####[facility] [address] [place], [address] Potassium [Moles/Vol] 4.5 mmol/L Normal 3.3-5.1 [facility] Comment on above: Performed By: #### L 500.3600, L503.6030, L100.0600, L503.6550 ####[facility] [address] [place], [address] Sodium [Moles/Vol] 136 mmol/L Normal 133-145 [facility] Comment on above: Performed By: #### L 500.3600, L503.6030, L100.0600, L503.6550 ####[facility] [address] [place], [address] Urea nitrogen [Mass/Vol] 65 mg/dL High 4-19 [facility] Comment on above: Performed By: #### L 500.3600, L503.6030, L100.0600, L503.6550 ####[facility] [address] [place], [address] CBC W/Diff, Automatedon 04-0 Absolute Neut Normal 2.0-7.7 [facility] Comment on above: Result Comment: Canc elled via OM: Order cancelled - Patient discharged Performed By: #### L 100.0100 ####[facility] [address] [place], [address] HCT Normal 37-47 [facility] Comment on above: Result Comment: Canc elled via OM: Order cancelled - Patient discharged Performed By: #### L 100.0100 ####[facility] [address] [place], [address] HGB Normal 12.0-15.0 [facility] Comment on above: Result Comment: Canc elled via OM: Order cancelled - Patient discharged Performed By: #### L 100.0100 ####[facility] [address] [place], [address] MCH Normal 27.0-32.0 [facility] Comment on above: Result Comment: Canc elled via OM: Order cancelled - Patient discharged Performed By: #### L 100.0100 ####[facility] [address] [place], [address] MCHC Normal 32-36 [facility] Comment on above: Result Comment: Canc elled via OM: Order cancelled - Patient discharged Performed By: #### L 100.0100 ####[facility] [address] [place], [address] MCV Normal 81-99 [facility] Comment on above: Result Comment: Canc elled via OM: Order cancelled - Patient discharged Performed By: #### L 100.0100 ####[facility] [address] [place], [address] NEUT% Normal 47-70 [facility] Comment on above: Result Comment: Canc elled via OM: Order cancelled - Patient discharged Performed By: #### L 100.0100 ####[facility] [address] [place], [address] PLT Normal 150-450 [facility] Comment on above: Result Comment: Canc elled via OM: Order cancelled - Patient discharged Performed By: #### L 100.0100 ####[facility] [address] [place], [address] RBC Normal 4.2-5.4 [facility] Comment on above: Result Comment: Canc elled via OM: Order cancelled - Patient discharged Performed By: #### L 100.0100 ####[facility] [address] [place], [address] RDW CV Normal 11.6-14.6 [facility] Comment on above: Result Comment: Canc elled via OM: Order cancelled - Patient discharged Performed By: #### L 100.0100 ####[facility] [address] [place], [address] RDW SD Normal 35.1-43.9 [facility] Comment on above: Result Comment: Canc elled via OM: Order cancelled - Patient discharged Performed By: #### L 100.0100 ####[facility] [address] [place], [address] WBC Normal 4.4-11.0 [facility] Comment on above: Result Comment: Canc elled via OM: Order cancelled - Patient discharged Performed By: #### L 100.0100 ####[facility] [address] [place], [address] CNPPalak 06-22-2024 JERRYN Telephone (INTMWS) -------- VAL [id number]) 1945 F Date Time Provider Department 06/22/24 NEEL TURPIN INTMWS During your visit today, we recorded the following information about you: Elizabeth Obando, SYLVAIN 06/22/2024 3:02 PM Signed Chantell with [facility] calling. Patient will be discharging to home from [facility] on 06/25/24. Pt has orders for Home Health Nursing, PT and OT. Asking if provider will sign and follow for these orders? Call Chantell at [phone]. SYLVAIN Byrd Victor H, MD 06/22/2024 8:15 PM Signed I will follow. Please schedule post senior living follow up. Discharge summary/medication list please. Johana Cerna MA 06/23/2024 8:39 AM Signed Tried calling [facility] back but not open yet. DOMINGO Fuentes M Robin, RN 06/23/2024 8:53 AM Signed Renae - [facility]- returned call and informed her, pcp is agreeable to follow for [facility] [place]. Jesenia Glasgow LPN 06/23/2024 9:12 AM Signed Called Val, is not set up. Called Rd/son, left to call AND speak to nurse. Alexandra Gloria LPN, LPN 06/23/2024 9:50 AM Signed Patient son Rd returned call and aware follow up appt needs scheduled. He said has taken mother home for a visit earlier this week and did not go very well. The plan is for her to be discharged on 06/25 and if works for her to be at home, he will call Saturday to schedule follow up. If things do not work out he is in contact with child protective services social worker at the facility for plan B if needed. Uzma Clarke LPN 06/26/2024 1:34 PM Signed Fyi to pcp Allergies As of Date: 06/22/2024 Noted Allergy Reaction RYBELSUS (SEMAGLUTIDE) 07/10/2023 5 - Intolerance Comments: Uncontrollable indigestion LEVAQUIN (LEVOFLOXACIN) 12/29/2004 Comments: itching,diarrhea,dausea, burning skin SEASONAL ALLERGIES 08/19/2014 14 - Other: See Comments Comments: Sinus SULFA (SULFONAMIDE ANTIBIOTICS) 12/29/2004 Comments: rash and hives Date Reviewed: 04/08/2024 Reviewed by: Tessa Brock [facility] - Fully Assessed Reason for Visit: Home Health Orders [Other] Prescriptions as of 07/01/2024 - tirzepatide (MOUNJARO) 2.5 mg/0.5 mL pen injector Inject 2.5 mg subcutaneously one time a week. - furosemide (LASIX) 20 mg tablet Take 1 tablet by mouth once daily. Take an extra 20 mg tablet daily as needed - gabapentin (NEURONTIN) 300 mg capsule Take 1 capsule by mouth two times a day for 180 days. - simvastatin (ZOCOR) 40 mg tablet Take 1 tablet by mouth daily at bedtime. For cholesterol. - insulin glargine (LANTUS SOLOSTAR U-100 INSULIN) 100 unit/mL (3 mL) Inject 60 Units subcutaneously daily at bedtime. - Insulin [place], Disposable, 29 gauge x 1/2 Use once daily as directed. Dx E11.29 - venlafaxine ER (EFFEXOR XR) 75 mg 24 hr capsule Take 1 capsule by mouth once daily. - empagliflozin (JARDIANCE) 10 mg tablet Take 1 tablet by mouth once daily. Prescribed by ballistics teacher - calcitriol (ROCALTROL) 0.5 mcg capsule Take 0.5 mcg by mouth. - clotrimazole (LOTRIMIN) 1 % cream Apply to affected area. - lidocaine (SALONPAS) 4 % patch Apply 1 Patch as directed. - hydrALAZINE (APRESOLINE) 25 mg tablet Take 25 mg by mouth three times a day. - metoprolol succinate ER (TOPROL XL) 50 mg 24 hr tablet Take 1 tablet by mouth once daily. Per Dr. Yulia Antoine, cardiology. - zzcaaxhjrti-orsmlktnn-ea lanter (TRELEGY ELLIPTA) 100-62.5-25 mcg inhalation powder Inhale 1 Puff as instructed once daily. - docusate sodium (COLACE) 100 mg capsule Take 1 capsule by mouth as needed. - melatonin 5 mg tablet Take 2 tablets by mouth. - senna (SENOKOT) 8.6 mg tab Take 1 tablet by mouth as needed. - Vit C-Vit N-Gljqih-FxQd-Lutein (PRESERVISION LUTEIN) 226 mg-200 unit -5 mg-0.8 [...] daily 250.02 Problem List As Of Date 06/22/2024 Noted Resolved Essential hypertension [I10] Generalized osteoarthritis [...] unspecified [K20.90] 10/24/2010 08/10/2015 Acute gastritis without (more content not included)... Normal [facility] Basic metabolic 2000 panelon 06-17-2024 Anion gap [Moles/Vol] 11 mmol/L Normal 10-20 [facility] Comment on above: Performed By: #### 8 9577-1 #### [place] ([id number]) [facility] ([facility]) [address] [place] [address] Calcium [Mass/Vol] 9.9 mg/dL Normal 8.6-10.3 [facility] Comment on above: Performed By: #### 8 9577-1 #### AKOSUA SEGOVIA ([id number]) [facility] ([facility]) [facility] [place] [address] Chloride [Moles/Vol] 103 mmol/L Normal 98-107 [facility] Comment on above: Performed By: #### 8 9577-1 #### AKOSUA SEGOVIA ([id number]) [facility] ([facility]) [facility] [place] [address] CO2 [Moles/Vol] 27 mmol/L Normal 21-32 [facility] Comment on above: Performed By: #### 8 9577-1 #### AKOSUA SEGOVIA ([id number]) [facility] ([facility]) [address] [place] [address] Creatinine [Mass/Vol] 2.06 mg/dL High 0.50-1.05 [facility] Comment on above: Performed By: #### 8 9577-1 #### AKOSUA SEGOVIA ([id number]) [facility] ([facility]) [address] [place] [address] Glomerular filtration rate/1.73 sq M.predicted 24 mL/min/1.73m*2 Low >60 [facility] Comment on above: Result Comment: Calc ulations of estimated GFR are performed using the 2020 CKD-EPI Study Refit equation without the race variable for the IDMS-Traceable creatinine methods. https://jasn.asnjournals.org/content//ASN.098160 2586 Performed By: #### 8 9577-1 #### AKOSUA SEGOVIA ([id number]) [facility] ([facility]) [facility] [place] [address] Glucose [Mass/Vol] 111 mg/dL High 74-99 [facility] Comment on above: Performed By: #### 8 9577-1 #### AKOSUA SEGOVIA ([id number]) [facility] ([facility]) [facility] [place] [address] Potassium [Moles/Vol] 4.4 mmol/L Normal 3.5-5.3 [facility] Comment on above: Performed By: #### 8 9577-1 #### AKOSUA SEGOVIA ([id number]) [facility] ([facility]) [address] [place] [address] Sodium [Moles/Vol] 137 mmol/L Normal 136-145 [facility] Comment on above: Performed By: #### 8 9577-1 #### AKOSUA SEGOVIA ([id number]) [facility] ([facility]) [address] [place] [address] Urea nitrogen [Mass/Vol] 57 mg/dL High 6-23 [facility] Comment on above: Performed By: #### 8 9577-1 #### AKOSUA SEGOVIA ([id number]) [facility] ([facility]) [address] [place] [address] Basic Metabolic Profile (BMP )on 06-15-2024 BUN Normal 7-18 [facility] Comment on above: Result Comment: Canc elled via OM: Order cancelled - Patient discharged Performed By: #### L 100.0100, L500.2500 ####[facility] [address] [place], [address] BUN/CRE Normal 10-20 [facility] Comment on above: Result Comment: Canc elled via OM: Order cancelled - Patient discharged Performed By: #### L 100.0100, L500.2500 ####[facility] [address] [place], [address] Calcium Normal 8.5-10.1 [facility] Comment on above: Result Comment: Canc elled via OM: Order cancelled - Patient discharged Performed By: #### L 100.0100, L500.2500 ####[facility] [address] [place], [address] CL Normal 98-107 [facility] Comment on above: Result Comment: Canc elled via OM: Order cancelled - Patient discharged Performed By: #### L 100.0100, L500.2500 ####[facility] [address] [place], [address] CO2 Normal 21.0-32.0 [facility] Comment on above: Result Comment: Canc elled via OM: Order cancelled - Patient discharged Performed By: #### L 100.0100, L500.2500 ####[facility] [address] [place], [address] CREAT,SERUM Normal 0.55-1.02 [facility] Comment on above: Result Comment: Canc elled via OM: Order cancelled - Patient discharged Performed By: #### L 100.0100, L500.2500 ####[facility] [address] [place], [address] eGFR Normal >60 [facility] Comment on above: Result Comment: Canc elled via OM: Order cancelled - Patient discharged Performed By: #### L 100.0100, L500.2500 ####[facility] [address] [place], [address] EST GFR - AA Normal >60 [facility] Comment on above: Result Comment: Canc elled via OM: Order cancelled - Patient discharged Performed By: #### L 100.0100, L500.2500 ####[facility] [address] [place], [address] GAP Normal 5-15 [facility] Comment on above: Result Comment: Canc elled via OM: Order cancelled - Patient discharged Performed By: #### L 100.0100, L500.2500 ####[facility] [address] [place], [address] GLU Normal 74-106 [facility] Comment on above: Result Comment: Canc elled via OM: Order cancelled - Patient discharged Performed By: #### L 100.0100, L500.2500 ####[facility] [address] [place], [address] Potassium Normal 3.5-5.1 [facility] Comment on above: Result Comment: Canc elled via OM: Order cancelled - Patient discharged Performed By: #### L 100.0100, L500.2500 ####[facility] [address] [place], [address] Basic Metabolic Profile (BMP) Normal 136-145 [facility] Comment on above: Result Comment: Canc elled via OM: Order cancelled - Patient discharged Performed By: #### L 100.0100, L500.2500 ####[facility] [address] [place], [address] CBC W/Diff, Automatedon 03-3 Absolute Neut Normal 2.0-7.7 [facility] Comment on above: Result Comment: Canc elled via OM: Order cancelled - Patient discharged Performed By: #### L 100.0100, L500.2500 ####[facility] [address] [place], [address] HCT Normal 37-47 [facility] Comment on above: Result Comment: Canc elled via OM: Order cancelled - Patient discharged Performed By: #### L 100.0100, L500.2500 ####[facility] [address] [place], [address] HGB Normal 12.0-15.0 [facility] Comment on above: Result Comment: Canc elled via OM: Order cancelled - Patient discharged Performed By: #### L 100.0100, L500.2500 ####[facility] [address] [place], [address] MCH Normal 27.0-32.0 [facility] Comment on above: Result Comment: Canc elled via OM: Order cancelled - Patient discharged Performed By: #### L 100.0100, L500.2500 ####[facility] [address] [place], [address] MCHC Normal 32-36 [facility] Comment on above: Result Comment: Canc elled via OM: Order cancelled - Patient discharged Performed By: #### L 100.0100, L500.2500 ####[facility] [address] [place], [address] MCV Normal 81-99 [facility] Comment on above: Result Comment: Canc elled via OM: Order cancelled - Patient discharged Performed By: #### L 100.0100, L500.2500 ####[facility] [address] [place], [address] NEUT% Normal 47-70 [facility] Comment on above: Result Comment: Canc elled via OM: Order cancelled - Patient discharged Performed By: #### L 100.0100, L500.2500 ####[facility] [address] [place], [address] PLT Normal 150-450 [facility] Comment on above: Result Comment: Canc elled via OM: Order cancelled - Patient discharged Performed By: #### L 100.0100, L500.2500 ####[facility] [address] [place], [address] RBC Normal 4.2-5.4 [facility] Comment on above: Result Comment: Canc elled via OM: Order cancelled - Patient discharged Performed By: #### L 100.0100, L500.2500 ####[facility] [address] [place], [address] RDW CV Normal 11.6-14.6 [facility] Comment on above: Result Comment: Canc elled via OM: Order cancelled - Patient discharged Performed By: #### L 100.0100, L500.2500 ####[facility] [address] [place], [address] RDW SD Normal 35.1-43.9 [facility] Comment on above: Result Comment: Canc elled via OM: Order cancelled - Patient discharged Performed By: #### L 100.0100, L500.2500 ####[facility] [address] [place], [address] WBC Normal 4.4-11.0 [facility] Comment on above: Result Comment: Canc elled via OM: Order cancelled - Patient discharged Performed By: #### L 100.0100, L500.2500 ####[facility] [address] [place], [address] Basic metabolic 2000 panelon 06-12-2024 Anion gap [Moles/Vol] 13 mmol/L Normal 10-20 [facility] Comment on above: Performed By: #### 2 4321-2 ####AKOSUA SEGOVIA ([id number])[facility] ([facility])[address] [place] [address] Calcium [Mass/Vol] 9.7 mg/dL Normal 8.6-10.3 [facility] Comment on above: Performed By: #### 2 4321-2 ####AKOSUA SEGOVIA ([id number])[facility] ([facility])[address] [place] [address] Chloride [Moles/Vol] 99 mmol/L Normal 98-107 [facility] Comment on above: Performed By: #### 2 4321-2 ####AKOSUA SEGOVIA ([id number])[facility] ([facility])[address] [place] [address] CO2 [Moles/Vol] 25 mmol/L Normal 21-32 [facility] Comment on above: Performed By: #### 2 4321-2 ####AKOSUA SEGOVIA ([id number])[facility] ([facility])[address] [place] [address] Creatinine [Mass/Vol] 2.16 mg/dL High 0.50-1.05 [facility] Comment on above: Performed By: #### 2 4321-2 ####AKOSUA SEGOVIA ([id number])[facility] ([facility])[address] [place] [address] Glomerular filtration rate/1.73 sq M.predicted 23 mL/min/1.73m*2 Low >60 [facility] Comment on above: Result Comment: Calc ulations of estimated GFR are performed using the 2020 CKD-EPI Study Refit equation without the race variable for the IDMS-Traceable creatinine methods. https://jasn.asnjournals.org/content/early//ASN.290861 0100 Performed By: #### 2 4321-2 ####AKOSUA SEGOVIA ([id number])[facility] ([facility])[address] [place] [address] Glucose [Mass/Vol] 72 mg/dL Low 74-99 [facility] Comment on above: Performed By: #### 2 4321-2 ####AKOSUA SEGOVIA ([id number])[facility] ([facility])[address] [place] [address] Potassium [Moles/Vol] 4.2 mmol/L Normal 3.5-5.3 [facility] Comment on above: Performed By: #### 2 4321-2 ####AKOSUA SEGOVIA ([id number])[facility] ([facility])[address] [place] [address] Sodium [Moles/Vol] 133 mmol/L Low 136-145 [facility] Comment on above: Performed By: #### 2 4321-2 ####AKOSUA SEGOVIA ([id number])[facility] ([facility])[address] [place] [address] Urea nitrogen [Mass/Vol] 64 mg/dL High 6-23 [facility] Comment on above: Performed By: #### 2 4321-2 ####AKOSUA SEGOVIA ([id number])[facility] ([facility])[address] [place] [address] Basic metabolic 2000 panelon 06-10-2024 Anion gap [Moles/Vol] 14 mmol/L Normal 10-20 [facility] Comment on above: Performed By: #### 2 4321-2 ####AKOSUA SEGOVIA ([id number])[facility] ([facility] [place] [address] Calcium [Mass/Vol] 10.0 mg/dL Normal 8.6-10.3 [facility] Comment on above: Performed By: #### 2 4321-2 ####AKOSUA SEGOVIA ([id number])[facility] ([facility])[address] [place] [address] Chloride [Moles/Vol] 99 mmol/L Normal 98-107 [facility] Comment on above: Performed By: #### 2 4321-2 ####AKOSUA SEGOVIA ([id number])[facility] ([facility])[address] [place] [address] CO2 [Moles/Vol] 22 mmol/L Normal 21-32 [facility] Comment on above: Performed By: #### 2 4321-2 ####AKOSUA SEGOVIA ([id number])[facility] ([facility])[address] [place] [address] Creatinine [Mass/Vol] 2.21 mg/dL High 0.50-1.05 [facility] Comment on above: Performed By: #### 2 4321-2 ####AKOSUA SEGOVIA ([id number])[facility] ([facility])[address] [place] [address]94[address] Glomerular filtration rate/1.73 sq M.predicted 22 mL/min/1.73m*2 Low >60 [facility] Comment on above: Result Comment: Calc ulations of estimated GFR are performed using the 2020 CKD-EPI Study Refit equation without the race variable for the IDMS-Traceable creatinine methods. https://jasn.asnjournals.org/content/early/ASN.703361 9861 Performed By: #### 2 4321-2 ####AKOSUA SEGOVIA ([id number])[facility] ([facility])[address] [place] [address]96[address] Glucose [Mass/Vol] 53 mg/dL Low 74-99 [facility] Comment on above: Performed By: #### 2 4321-2 ####AKOSUA SEGOVIA ([id number])[facility] ([facility])[address] [place] [address] Potassium [Moles/Vol] 4.4 mmol/L Normal 3.5-5.3 [facility] Comment on above: Performed By: #### 2 4321-2 ####AKOSUA SEGOVIA ([id number])[facility] ([facility])[address] [place] [address] Sodium [Moles/Vol] 131 mmol/L Low 136-145 [facility] Comment on above: Performed By: #### 2 4321-2 ####AKOSUA SEGOVIA ([id number])[facility] ([facility])[address] [place] [address] 20[address] Urea nitrogen [Mass/Vol] 67 mg/dL High 6-23 [facility] Comment on above: Performed By: #### 2 4321-2 ####AKOSUA SEGOVIA ([id number])[facility] ([facility])[address] [place] [address] 800[address] Hemoglobin and Hematocrit pa elizabeth (Bld)on 06-10-2024 Hematocrit (Bld) [Volume fraction] 30.9 % Low 36.0-46.0 [facility] Comment on above: Performed By: #### 2 4360-0 ####AKOSUA SEGOVIA ([id number])[facility] ([facility])[address] [place] [address]698 Hemoglobin (Bld) [Mass/Vol] 9.2 g/dL Low 12.0-16.0 [facility] Comment on above: Performed By: #### 2 4360-0 ####AKOSUA SEGOVIA ([id number])[facility] ([facility])[address] [place] [address] Basic Metabolic Profile (BMP )on 06-08-2024 BUN Normal 7-18 [facility] Comment on above: Result Comment: Canc elled via OM: Order cancelled - Patient discharged Performed By: #### L 100.0100, L500.2500 ####[facility] [address] [place], [address] BUN/CRE Normal 10-20 [facility] Comment on above: Result Comment: Canc elled via OM: Order cancelled - Patient discharged Performed By: #### L 100.0100, L500.2500 ####[facility] [address] [place], [address] Calcium Normal 8.5-10.1 [facility] Comment on above: Result Comment: Canc elled via OM: Order cancelled - Patient discharged Performed By: #### L 100.0100, L500.2500 ####[facility] [address] [place], [address] CL Normal 98-107 [facility] Comment on above: Result Comment: Canc elled via OM: Order cancelled - Patient discharged Performed By: #### L 100.0100, L500.2500 ####[facility] [address] [place], [address] CO2 Normal 21.0-32.0 [facility] Comment on above: Result Comment: Canc elled via OM: Order cancelled - Patient discharged Performed By: #### L 100.0100, L500.2500 ####[facility] [address] [place], [address] CREAT,SERUM Normal 0.55-1.02 [facility] Comment on above: Result Comment: Canc elled via OM: Order cancelled - Patient discharged Performed By: #### L 100.0100, L500.2500 ####[facility] [address] [place], [address] eGFR Normal >60 [facility] Comment on above: Result Comment: Canc elled via OM: Order cancelled - Patient discharged Performed By: #### L 100.0100, L500.2500 ####[facility] [address] [place], [address] EST GFR - AA Normal >60 [facility] Comment on above: Result Comment: Canc elled via OM: Order cancelled - Patient discharged Performed By: #### L 100.0100, L500.2500 ####[facility] [address] [place], [address] GAP Normal 5-15 [facility] Comment on above: Result Comment: Canc elled via OM: Order cancelled - Patient discharged Performed By: #### L 100.0100, L500.2500 ####[facility] [address] [place], [address] GLU Normal 74-106 [facility] Comment on above: Result Comment: Canc elled via OM: Order cancelled - Patient discharged Performed By: #### L 100.0100, L500.2500 ####[facility] [address] [place], [address] Potassium Normal 3.5-5.1 [facility] Comment on above: Result Comment: Canc elled via OM: Order cancelled - Patient discharged Performed By: #### L 100.0100, L500.2500 ####[facility] [address] [place], [address] Basic Metabolic Profile (BMP) Normal 136-145 [facility] Comment on above: Result Comment: Canc elled via OM: Order cancelled - Patient discharged Performed By: #### L 100.0100, L500.2500 ####[facility] [address] [place], [address] CBC W/Diff, Automatedon 03-2 Absolute Neut Normal 2.0-7.7 [facility] Comment on above: Result Comment: Canc elled via OM: Order cancelled - Patient discharged Performed By: #### L 100.0100, L500.2500 ####[facility] [address] [place], [address] HCT Normal 37-47 [facility] Comment on above: Result Comment: Canc elled via OM: Order cancelled - Patient discharged Performed By: #### L 100.0100, L500.2500 ####[facility] [address] [place], [address] HGB Normal 12.0-15.0 [facility] Comment on above: Result Comment: Canc elled via OM: Order cancelled - Patient discharged Performed By: #### L 100.0100, L500.2500 ####[facility] [address] [place], [address] MCH Normal 27.0-32.0 [facility] Comment on above: Result Comment: Canc elled via OM: Order cancelled - Patient discharged Performed By: #### L 100.0100, L500.2500 ####[facility] [address] [place], [address] MCHC Normal 32-36 [facility] Comment on above: Result Comment: Canc elled via OM: Order cancelled - Patient discharged Performed By: #### L 100.0100, L500.2500 ####[facility] [address] [place], [address] MCV Normal 81-99 [facility] Comment on above: Result Comment: Canc elled via OM: Order cancelled - Patient discharged Performed By: #### L 100.0100, L500.2500 ####[facility] [facility] [address] [place], [address] NEUT% Normal 47-70 [facility] Comment on above: Result Comment: Canc elled via OM: Order cancelled - Patient discharged Performed By: #### L 100.0100, L500.2500 ####[facility] [address] [place], [address] PLT Normal 150-450 [facility] Comment on above: Result Comment: Canc elled via OM: Order cancelled - Patient discharged Performed By: #### L 100.0100, L500.2500 ####[facility] [address] [place], [address] RBC Normal 4.2-5.4 [facility] Comment on above: Result Comment: Canc elled via OM: Order cancelled - Patient discharged Performed By: #### L 100.0100, L500.2500 ####[facility] [address] [place], [address] RDW CV Normal 11.6-14.6 [facility] Comment on above: Result Comment: Canc elled via OM: Order cancelled - Patient discharged Performed By: #### L 100.0100, L500.2500 ####[facility] [address] [place], [address] RDW SD Normal 35.1-43.9 [facility] Comment on above: Result Comment: Canc elled via OM: Order cancelled - Patient discharged Performed By: #### L 100.0100, L500.2500 ####[facility] [address] [place], [address] WBC Normal 4.4-11.0 [facility] Comment on above: Result Comment: Canc elled via OM: Order cancelled - Patient discharged Performed By: #### L 100.0100, L500.2500 ####[facility] [address] [place], [address] Basic metabolic 2000 panelon 06-03-2024 Anion gap [Moles/Vol] 13 mmol/L Normal 10-20 [facility] Comment on above: Performed By: #### 2 4321-2 ####AKOSUA SEGOVIA ([id number])[facility] ([facility])[address] [place] [address] Calcium [Mass/Vol] 10.3 mg/dL Normal 8.6-10.3 [facility] Comment on above: Performed By: #### 2 4321-2 ####AKOSUA SEGOVIA ([id number])[facility] ([facility] [place] [address] Chloride [Moles/Vol] 103 mmol/L Normal 98-107 [facility] Comment on above: Performed By: #### 2 4321-2 ####AKOSUA SEGOVIA ([id number])[facility] ([facility])[address] [place] [address] 15744 CO2 [Moles/Vol] 24 mmol/L Normal 21-32 [facility] Comment on above: Performed By: #### 2 4321-2 ####AKOSUA SEGOVIA ([id number])[facility] ([facility])[address] [place] [address] Creatinine [Mass/Vol] 1.81 mg/dL High 0.50-1.05 [facility] Comment on above: Performed By: #### 2 4321-2 ####AKOSUA SEGOVIA ([id number])[facility] ([facility])[address] [place] [address] Glomerular filtration rate/1.73 sq M.predicted 28 mL/min/1.73m*2 Low >60 [facility] Comment on above: Result Comment: Calc ulations of estimated GFR are performed using the 2020 CKD-EPI Study Refit equation without the race variable for the IDMS-Traceable creatinine methods. https://jasn.asnjournals.org/content/early//ASN.908099 2827 Performed By: #### 2 4321-2 ####AKOSUA SEGOVIA ([id number])[facility] ([facility])[address] [place] [address] 525[address] Glucose [Mass/Vol] 113 mg/dL High 74-99 [facility] Comment on above: Performed By: #### 2 4321-2 ####AKOSUA SEGOVIA ([id number])[facility] ([facility])[address] [place] [address] 12631 Potassium [Moles/Vol] 4.5 mmol/L Normal 3.5-5.3 [facility] Comment on above: Performed By: #### 2 4321-2 ####AKOSUA SEGOVIA ([id number])[facility] ([facility])[address] [place] [address] Sodium [Moles/Vol] 135 mmol/L Low 136-145 [facility] Comment on above: Performed By: #### 2 4321-2 ####AKOSUA SEGOVIA ([id number])[facility] ([facility])[address] [place] [address] Urea nitrogen [Mass/Vol] 50 mg/dL High 6-23 [facility] Comment on above: Performed By: #### 2 4321-2 ####AKOSUA SEGOVIA ([id number])[facility] ([facility])[address] [place] [address] 26365 Cobalaminson 06-03-2024 Cobalamin (Vitamin B12) [Mass/Vol] 393 pg/mL Normal 211-911 [facility] Comment on above: Performed By: #### 2 132-9 ####SAMANTHA Macedo ([id number])[facility] ([facility])[id number] [place], [place] [address] Folateon 06-03-2024 Folate [Mass/Vol] 18.7 ng/mL Normal >5.0 [facility] Comment on above: Order Comment: Low < 3.4Borderline 3.4-5.0Normal >5.0Patients receiving more than 5 mg/day of biotin may have interference in test results. A sample should be taken no sooner than eight hours after previous dose. Contact the testing laboratory for additional information. Performed By: #### 2 284-8 ####SAMANTHA Macedo ([id number])[facility] ([facility])[address] [place] [address] Hemoglobin and Hematocrit pa elizabeth (Bld)on 06-03-2024 Hematocrit (Bld) [Volume fraction] 31.3 % Low 36.0-46.0 [facility] Comment on above: Performed By: #### 2 4360-0 ####AKOSUA SEGOVIA ([id number])[facility] ([facility])[address] [place] [address]6839 Hemoglobin (Bld) [Mass/Vol] 9.4 g/dL Low 12.0-16.0 [facility] Comment on above: Performed By: #### 2 4360-0 ####AKOSUA SEGOVIA ([id number])[facility] ([facility])[address] [place] [address] 87226 Ironon 06-03-2024 Iron [Mass/Vol] 50 ug/dL Normal 35-150 [facility] Comment on above: Performed By: #### 2 498-4 ####AKOSUA SEGOVIA ([id number])[facility] ([facility])[address] [place] [address] 31085 Basic Metabolic Profile (BMP )on 06-01-2024 BUN Normal 7-18 [facility] Comment on above: Result Comment: Canc elled via OM: Order cancelled - Patient discharged Performed By: #### L 500.2500, L100.0100 ####[facility] [address] [place], [address] BUN/CRE Normal 10-20 [facility] Comment on above: Result Comment: Canc elled via OM: Order cancelled - Patient discharged Performed By: #### L 500.2500, L100.0100 ####[facility] [address] [place], [address] Calcium Normal 8.5-10.1 [facility] Comment on above: Result Comment: Canc elled via OM: Order cancelled - Patient discharged Performed By: #### L 500.2500, L100.0100 ####[facility] [address] [place], [address] CL Normal 98-107 [facility] Comment on above: Result Comment: Canc elled via OM: Order cancelled - Patient discharged Performed By: #### L 500.2500, L100.0100 ####[facility] [address] [place], [address] CO2 Normal 21.0-32.0 [facility] Comment on above: Result Comment: Canc elled via OM: Order cancelled - Patient discharged Performed By: #### L 500.2500, L100.0100 ####[facility] [address] [place], [address] CREAT,SERUM Normal 0.55-1.02 [facility] Comment on above: Result Comment: Canc elled via OM: Order cancelled - Patient discharged Performed By: #### L 500.2500, L100.0100 ####[facility] [address] [place], [address] eGFR Normal >60 [facility] Comment on above: Result Comment: Canc elled via OM: Order cancelled - Patient discharged Performed By: #### L 500.2500, L100.0100 ####[facility] [address] [place], [address] EST GFR - AA Normal >60 [facility] Comment on above: Result Comment: Canc elled via OM: Order cancelled - Patient discharged Performed By: #### L 500.2500, L100.0100 ####[facility] [address] [place], [address] GAP Normal 5-15 [facility] Comment on above: Result Comment: Canc elled via OM: Order cancelled - Patient discharged Performed By: #### L 500.2500, L100.0100 ####[facility] [address] [place], [address] GLU Normal 74-106 [facility] Comment on above: Result Comment: Canc elled via OM: Order cancelled - Patient discharged Performed By: #### L 500.2500, L100.0100 ####[facility] [address] [place], [address] Potassium Normal 3.5-5.1 [facility] Comment on above: Result Comment: Canc elled via OM: Order cancelled - Patient discharged Performed By: #### L 500.2500, L100.0100 ####[facility] [address] [place], [address] Basic Metabolic Profile (BMP) Normal 136-145 [facility] Comment on above: Result Comment: Canc elled via OM: Order cancelled - Patient discharged Performed By: #### L 500.2500, L100.0100 ####[facility] [address] [place], [address] CBC W/Diff, Automatedon - Absolute Neut Normal 2.0-7.7 [facility] Comment on above: Result Comment: Canc elled via OM: Order cancelled - Patient discharged Performed By: #### L 500.2500, L100.0100 ####[facility] [address] [place], [address] HCT Normal 37-47 [facility] Comment on above: Result Comment: Canc elled via OM: Order cancelled - Patient discharged Performed By: #### L 500.2500, L100.0100 ####[facility] [address] [place], [address] HGB Normal 12.0-15.0 [facility] Comment on above: Result Comment: Canc elled via OM: Order cancelled - Patient discharged Performed By: #### L 500.2500, L100.0100 ####[facility] [address] [place], [address] MCH Normal 27.0-32.0 [facility] Comment on above: Result Comment: Canc elled via OM: Order cancelled - Patient discharged Performed By: #### L 500.2500, L100.0100 ####[facility] [address] [place], [address] MCHC Normal 32-36 [facility] Comment on above: Result Comment: Canc elled via OM: Order cancelled - Patient discharged Performed By: #### L 500.2500, L100.0100 ####[facility] [address] [place], [address] MCV Normal 81-99 [facility] Comment on above: Result Comment: Canc elled via OM: Order cancelled - Patient discharged Performed By: #### L 500.2500, L100.0100 ####[facility] [address] [place], [address] NEUT% Normal 47-70 [facility] Comment on above: Result Comment: Canc elled via OM: Order cancelled - Patient discharged Performed By: #### L 500.2500, L100.0100 ####[facility] [address] [place], [address] PLT Normal 150-450 [facility] Comment on above: Result Comment: Canc elled via OM: Order cancelled - Patient discharged Performed By: #### L 500.2500, L100.0100 ####[facility] [address] [place], [address] RBC Normal 4.2-5.4 [facility] Comment on above: Result Comment: Canc elled via OM: Order cancelled - Patient discharged Performed By: #### L 500.2500, L100.0100 ####[facility] [address] [place], [address] RDW CV Normal 11.6-14.6 [facility] Comment on above: Result Comment: Canc elled via OM: Order cancelled - Patient discharged Performed By: #### L 500.2500, L100.0100 ####[facility] [address] [place], [address] RDW SD Normal 35.1-43.9 [facility] Comment on above: Result Comment: Canc elled via OM: Order cancelled - Patient discharged Performed By: #### L 500.2500, L100.0100 ####[facility] [address] [place], [address] WBC Normal 4.4-11.0 [facility] Comment on above: Result Comment: Canc elled via OM: Order cancelled - Patient discharged Performed By: #### L 500.2500, L100.0100 ####[facility] [address] [place], [address] CBC panel Auto (Bld)on 05-27 Erythrocyte distribution width (RBC) [Ratio] 17.1 % High 11.5-14.5 [facility] Comment on above: Performed By: #### 5 8410-2 ####AKOSUA SEGOVIA ([id number])[facility] ([facility])[address] [place] [address] 17586 Hematocrit (Bld) [Volume fraction] 28.8 % Low 36.0-46.0 [facility] Comment on above: Performed By: #### 5 8410-2 ####AKOSUA SEGOVIA ([id number])[facility] ([facility])[address] [place] [address] 063[address] Hemoglobin (Bld) [Mass/Vol] 8.9 g/dL Low 12.0-16.0 [facility] Comment on above: Performed By: #### 5 8410-2 ####AKOSUA SEGOVIA ([id number])[facility] ([facility])[address] [place] [address] 03049 MCH (RBC) [Entitic mass] 32.1 pg Normal 26.0-34.0 [facility] Comment on above: Performed By: #### 5 8410-2 ####AKOSUA SEGOVIA ([id number])[facility] ([facility])[address] [place] [address] 04396 MCHC (RBC) [Mass/Vol] 30.9 g/dL Low 32.0-36.0 [facility] Comment on above: Performed By: #### 5 8410-2 ####AKOSUA SEGOVIA ([id number])[facility] ([facility])[address] [place] [address] 77377 MCV (RBC) [Entitic vol] 104 fL High 80-100 [facility] Comment on above: Performed By: #### 5 8410-2 ####AKOSUA SEGOVIA ([id number])[facility] ([facility])[address] [place] [address] 61805 Nucleated RBC/100 WBC (Bld) [Ratio] 0.0 /100 WBCs Normal 0.0-0.0 [facility] Comment on above: Performed By: #### 5 8410-2 ####AKOSUA SEGOVIA ([id number])[facility] ([facility])[address] [place] [address] 39341 Platelets (Bld) [#/Vol] 267 x10*3/uL Normal 150-450 [facility] Comment on above: Performed By: #### 5 8410-2 ####AKOSUA SEGOVIA ([id number])[facility] ([facility])[address] [place] [address] 39124 RBC (Bld) [#/Vol] 2.77 x10*6/uL Low 4.00-5.20 [facility] Comment on above: Performed By: #### 5 8410-2 ####AKOSUA SEGOVIA ([id number])[facility] ([facility])[address] [place] [address] 40837 WBC (Bld) [#/Vol] 8.4 x10*3/uL Normal 4.4-11.3 [facility] Comment on above: Performed By: #### 5 8410-2 ####AKOSUA SEGOVIA ([id number])[facility] ([facility])[address] [place] [address] 14547 Comprehensive metabolic 2000 panelon 05-27-2024 Albumin BCP dye [Mass/Vol] 3.5 g/dL Normal 3.4-5.0 [facility] Comment on above: Performed By: #### 2 4323-8 ####AKOSUA SEGOVIA ([id number])[facility] ([facility])[address] [place] [address] ALP [Catalytic activity/Vol] 98 U/L Normal 33-136 [facility] Comment on above: Performed By: #### 2 432-8 ####AKOSUA SEGOVIA ([id number])[facility] ([facility])[address] [place] [address] ALT With P-5'-P [Catalytic activity/Vol] 18 U/L Normal 7-45 [facility] Comment on above: Result Comment: Tate ents treated with Sulfasalazine may generate falsely decreased results for ALT. Performed By: #### 2 4322-8 ####AKOSUA SEGOVIA ([id number])[facility] ([facility])[address] [place] [address] 17061 Anion gap [Moles/Vol] 13 mmol/L Normal 10-20 [facility] Comment on above: Performed By: #### 2 4322-8 ####AKOSUA SEGOVIA ([id number])[facility] ([facility])[address] [place] [address] AST With P-5'-P [Catalytic activity/Vol] 14 U/L Normal 9-39 [facility] Comment on above: Performed By: #### 2 432-8 ####AKOSUA SEGOVIA ([id number])[facility] ([facility])[address] [place] [address] Bilirubin [Mass/Vol] 0.3 mg/dL Normal 0.0-1.2 [facility] Comment on above: Performed By: #### 2 4322-8 ####AKOSUA SEGOVIA ([id number])[facility] ([facility])[address] [place] [address] 73359 Calcium [Mass/Vol] 9.2 mg/dL Normal 8.6-10.3 [facility] Comment on above: Performed By: #### 2 432-8 ####AKOSUA SEGOVIA ([id number])[facility] ([facility])[address] [place] [address] 38971 Chloride [Moles/Vol] 102 mmol/L Normal 98-107 [facility] Comment on above: Performed By: #### 2 4323-8 ####AKOSUA SEGOVIA ([id number])[facility] ([facility])[address] [place] [address] CO2 [Moles/Vol] 20 mmol/L Low 21-32 [facility] Comment on above: Performed By: #### 2 4323-8 ####AKOSUA SEGOVIA ([id number])[facility] ([facility])[address] [place] [address] Creatinine [Mass/Vol] 1.89 mg/dL High 0.50-1.05 [facility] Comment on above: Performed By: #### 2 4323-8 ####AKOSUA SEGOVIA ([id number])[facility] ([facility])[address] [place] [address] 14457 Glomerular filtration rate/1.73 sq M.predicted 27 mL/min/1.73m*2 Low >60 [facility] Comment on above: Result Comment: Calc ulations of estimated GFR are performed using the 2020 CKD-EPI Study Refit equation without the race variable for the IDMS-Traceable creatinine methods. https://jasn.asnjournals.org/content/early/ASN.042409 3220 Performed By: #### 2 4323-8 ####AKOSUA SEGOVIA ([id number])[facility] ([facility])[address] [place] [address] 81230 Glucose [Mass/Vol] 117 mg/dL High 74-99 [facility] Comment on above: Performed By: #### 2 4323-8 ####AKOSUA SEGOVIA ([id number])[facility] ([facility])[address] [place] [address] 17297 Potassium [Moles/Vol] 4.0 mmol/L Normal 3.5-5.3 [facility] Comment on above: Performed By: #### 2 4323-8 ####AKOSUA SEGOVIA ([id number])[facility] ([facility])[address] [place] [address] 56828 Protein [Mass/Vol] 5.5 g/dL Low 6.4-8.2 [facility] Comment on above: Performed By: #### 2 4323-8 ####AKOSUA SEGOVIA ([id number])[facility] ([facility])[address] [place] [address] 52483 Sodium [Moles/Vol] 131 mmol/L Low 136-145 [facility] Comment on above: Performed By: #### 2 4323-8 ####AKOSUA SEGOVIA ([id number])[facility] ([facility])[address] [place] [address] 58665 Urea nitrogen [Mass/Vol] 37 mg/dL High 6-23 [facility] Comment on above: Performed By: #### 2 4323-8 ####AKOSUA SEGOVIA ([id number])[facility] ([facility])[address] [place] [address] 12271 Culture, Blood (WB)on 2024 CUB Blood cultures x2, f rom two different sites No growth in 5 days. Normal [facility] Comment on above: Performed By: #### M 200.1000 ####[facility] [address] [place], [address] Respiratory Cultureon 2024 RESPC List Antibiotics Las t 48 Hours? y Mixed normal respiratory [place]. No Streptococcus pneumoniae, beta-hemolytic Streptococcus or Staphylococcus aureus isolated. Normal [facility] Comment on above: Performed By: #### M 100.2000, M100.2400 ####[facility] [address] [place], [address] Basic Metabolic Profile (BMP )on 05-25-2024 BUN/CRE 21.0 RATIO High 10-20 [facility] Comment on above: Performed By: #### L 100.0100, L500.2500 ####[facility] [address] [place], [address] Calcium [Mass/Vol] 9.6 mg/dL Normal 7.6-11.0 [facility] Comment on above: Performed By: #### L 100.0100, L500.2500 ####[facility] [address] [place], [address] Chloride [Moles/Vol] 99 mmol/L Normal 98-108 [facility] Comment on above: Performed By: #### L 100.0100, L500.2500 ####[facility] [address] [place], [address] CO2 [Moles/Vol] 16.5 mmol/L Low 21.0-32.0 [facility] Comment on above: Performed By: #### L 100.0100, L500.2500 ####[facility] [address] [place], [address] Creatinine [Mass/Vol] 1.82 mg/dL High 0.70-1.20 [facility] Comment on above: Performed By: #### L 100.0100, L500.2500 ####[facility] [address] [place], [address] ECRCL 30.75 ml/min Low 50-250 [facility] Comment on above: Performed By: #### L 100.0100, L500.2500 ####[facility] [address] [place], [address] GAP 15 Normal 5-15 [facility] Comment on above: Performed By: #### L 100.0100, L500.2500 ####[facility] [address] [place], [address] GFR/1.73 sq M.predicted among non-blacks MDRD (S/P/Bld) [Vol rate/Area] 28 mL/min/{1.73_m2} Low >60 [facility] Comment on above: Result Comment: mL/m in/1.73m2 CKD-EPI Creatinine Equation (2020) Performed By: #### L 100.0100, L500.2500 ####[facility] [address] [place], [address] Glucose [Mass/Vol] 92 mg/dL Normal 70-99 [facility] Comment on above: Performed By: #### L 100.0100, L500.2500 ####[facility] [address] [place], [address] Potassium [Moles/Vol] 3.9 mmol/L Normal 3.3-5.1 [facility] Comment on above: Performed By: #### L 100.0100, L500.2500 ####[facility] [address] [place], [address] Sodium [Moles/Vol] 131 mmol/L Low 133-145 [facility] Comment on above: Performed By: #### L 100.0100, L500.2500 ####[facility] [address] [place], [address] Urea nitrogen [Mass/Vol] 38 mg/dL High 4-19 [facility] Comment on above: Performed By: #### L 100.0100, L500.2500 ####[facility] [address] [place], [address] BUN Normal 7-18 [facility] Comment on above: Result Comment: Canc elled via OM: Order cancelled - Patient discharged Performed By: #### L 500.2500, L100.0100 ####[facility] [address] [place], [address] BUN/CRE Normal 10-20 [facility] Comment on above: Result Comment: Canc elled via OM: Order cancelled - Patient discharged Performed By: #### L 500.2500, L100.0100 ####[facility] [address] [place], [address] Calcium Normal 8.5-10.1 [facility] Comment on above: Result Comment: Canc elled via OM: Order cancelled - Patient discharged Performed By: #### L 500.2500, L100.0100 ####[facility] [address] [place], [address] CL Normal 98-107 [facility] Comment on above: Result Comment: Canc elled via OM: Order cancelled - Patient discharged Performed By: #### L 500.2500, L100.0100 ####[facility] [address] [place], [address] CO2 Normal 21.0-32.0 [facility] Comment on above: Result Comment: Canc elled via OM: Order cancelled - Patient discharged Performed By: #### L 500.2500, L100.0100 ####[facility] [address] [place], [address] CREAT,SERUM Normal 0.55-1.02 [facility] Comment on above: Result Comment: Canc elled via OM: Order cancelled - Patient discharged Performed By: #### L 500.2500, L100.0100 ####[facility] [address] [place], [address] eGFR Normal >60 [facility] Comment on above: Result Comment: Canc elled via OM: Order cancelled - Patient discharged Performed By: #### L 500.2500, L100.0100 ####[facility] [address] [place], [address] EST GFR - AA Normal >60 [facility] Comment on above: Result Comment: Canc elled via OM: Order cancelled - Patient discharged Performed By: #### L 500.2500, L100.0100 ####[facility] [address] [place], [address] GAP Normal 5-15 [facility] [facility] Comment on above: Result Comment: Canc elled via OM: Order cancelled - Patient discharged Performed By: #### L 500.2500, L100.0100 ####[facility] [address] [place], [address] GLU Normal 74-106 [facility] Comment on above: Result Comment: Canc elled via OM: Order cancelled - Patient discharged Performed By: #### L 500.2500, L100.0100 ####[facility] [address] [place], [address] Potassium Normal 3.5-5.1 [facility] Comment on above: Result Comment: Canc elled via OM: Order cancelled - Patient discharged Performed By: #### L 500.2500, L100.0100 ####[facility] [address] [place], [address] Basic Metabolic Profile (BMP) Normal 136-145 [facility] Comment on above: Result Comment: Canc elled via OM: Order cancelled - Patient discharged Performed By: #### L 500.2500, L100.0100 ####[facility] [address] [place], [address] Bedside Glucoseon 05-25-2024 FINGERSTICK GLU 151 mg/dL High 74-106 [facility] Comment on above: Result Comment: JASON GEMENT OF PATIENT CARE PER NURSING PROTOCOL Performed By: #### L 501.080 ####[facility] [address] [place], [address] FINGERSTICK GLU 167 mg/dL High 74-106 [facility] Comment on above: Result Comment: JASON GEMENT OF PATIENT CARE PER NURSING PROTOCOL Performed By: #### L 501.080 ####[facility] [address] [place], [address] FINGERSTICK GLU 90 mg/dL Normal 74-106 [facility] Comment on above: Result Comment: JASON GEMENT OF PATIENT CARE PER NURSING PROTOCOL Performed By: #### L 501.080 ####[facility] [address] [place], [address] FINGERSTICK GLU 168 mg/dL High 74-106 [facility] Comment on above: Result Comment: JASON RODRIGUEZ OF PATIENT CARE PER NURSING PROTOCOL Performed By: #### L 501.080 ####[facility] [address] [place], [address] CBC W/Diff, Automatedon 03- 0-2024 Absolute Lymph 1.36 X10 3/uL Normal 0.83-4.51 [facility] Comment on above: Performed By: #### L 100.0100, L500.2500 ####[facility] [address] [place], [address] Absolute Neut 6.7 X10 3/uL Normal 2.0-7.7 [facility] Comment on above: Performed By: #### L 100.0100, L500.2500 ####[facility] [address] [place], [address] Basophils/100 WBC (Bld) 0.9 % Normal 0-1 [facility] Comment on above: Performed By: #### L 100.0100, L500.2500 ####[facility] [address] [place], [address] Eosinophils/100 WBC (Bld) 1.7 % Normal 0-5 [facility] Comment on above: Performed By: #### L 100.0100, L500.2500 ####[facility] [address] [place], [address] Erythrocyte distribution width (RBC) [Ratio] 16.4 % High 11.6-14.6 [facility] Comment on above: Performed By: #### L 100.0100, L500.2500 ####[facility] [address] [place], [address] Hematocrit (Bld) [Volume fraction] 27.3 % Low 37-47 [facility] Comment on above: Performed By: #### L 100.0100, L500.2500 ####[facility] [address] [place], [address] Hemoglobin (Bld) [Mass/Vol] 8.9 g/dL Low 12.0-15.0 [facility] Comment on above: Performed By: #### L 100.0100, L500.2500 ####[facility] [address] [place], [address] IG% 0.700 Normal 0.0-0.9 [facility] Comment on above: Result Comment: IG% - Immature Granulocytes (promyelocytes, myelocytes andmetamyelocytes) > 1% indicates that a LEFT SHIFT is Present. Performed By: #### L 100.0100, L500.2500 ####[facility] [address] [place], [address] Lymphocytes/100 WBC (Bld) 15.0 % Low 19-41 [facility] Comment on above: Performed By: #### L 100.0100, L500.2500 ####[facility] [address] [place], [address] MCH (RBC) [Entitic mass] 32.8 pg High 27.0-32.0 [facility] Comment on above: Performed By: #### L 100.0100, L500.2500 ####[facility] [address] [place], [address] MCHC (RBC) [Mass/Vol] 32.6 g/dL Normal 32-36 [facility] Comment on above: Performed By: #### L 100.0100, L500.2500 ####[facility] [address] [place], [address] MCV (RBC) [Entitic vol] 100.7 fL High 81-99 [facility] Comment on above: Performed By: #### L 100.0100, L500.2500 ####[facility] [address] [place], [address] Monocytes/100 WBC (Bld) 7.9 % Normal 0-10 [facility] Comment on above: Performed By: #### L 100.0100, L500.2500 ####[facility] [address] [place], [address] Neutrophils/100 WBC (Bld) 73.8 % High 47-70 [facility] Comment on above: Performed By: #### L 100.0100, L500.2500 ####[facility] [address] [place], [address] Nucleated RBC (Bld) [#/Vol] 0 10*3/uL Normal 0-5 [facility] Comment on above: Performed By: #### L 100.0100, L500.2500 ####[facility] [address] [place], [address] Platelet mean volume (Bld) [Entitic vol] 9.7 fL Normal 6.2-12.0 [facility] Comment on above: Performed By: #### L 100.0100, L500.2500 ####[facility] [address] [place], [address] Platelets (Bld) [#/Vol] 290 10*3/uL Normal 150-450 [facility] Comment on above: Performed By: #### L 100.0100, L500.2500 ####[facility] [address] [place], [address] RBC (Bld) [#/Vol] 2.71 10*6/uL Low 4.2-5.4 [facility] Comment on above: Performed By: #### L 100.0100, L500.2500 ####[facility] [address] [place], [address] RDW SD 58.4 fl High 35.1-43.9 [facility] Comment on above: Performed By: #### L 100.0100, L500.2500 ####[facility] [address] [place], [address] WBC (Bld) [#/Vol] 9.1 10*3/uL Normal 4.4-11.0 [facility] Comment on above: Performed By: #### L 100.0100, L500.2500 ####[facility] [address] [place], [address] Absolute Neut Normal 2.0-7.7 [facility] Comment on above: Result Comment: Canc elled via OM: Order cancelled - Patient discharged Performed By: #### L 500.2500, L100.0100 ####[facility] [address] [place], [address] HCT Normal 37-47 [facility] Comment on above: Result Comment: Canc elled via OM: Order cancelled - Patient discharged Performed By: #### L 500.2500, L100.0100 ####[facility] [address] [place], [address] HGB Normal 12.0-15.0 [facility] Comment on above: Result Comment: Canc elled via OM: Order cancelled - Patient discharged Performed By: #### L 500.2500, L100.0100 ####[facility] [address] [place], [address] MCH Normal 27.0-32.0 [facility] Comment on above: Result Comment: Canc elled via OM: Order cancelled - Patient discharged Performed By: #### L 500.2500, L100.0100 ####[facility] [address] [place], [address] MCHC Normal 32-36 [facility] Comment on above: Result Comment: Canc elled via OM: Order cancelled - Patient discharged Performed By: #### L 500.2500, L100.0100 ####[facility] [address] [place], [address] MCV Normal 81-99 [facility] Comment on above: Result Comment: Canc elled via OM: Order cancelled - Patient discharged Performed By: #### L 500.2500, L100.0100 ####[facility] [address] [place], [address] NEUT% Normal 47-70 [facility] Comment on above: Result Comment: Canc elled via OM: Order cancelled - Patient discharged Performed By: #### L 500.2500, L100.0100 ####[facility] [address] [place], [address] PLT Normal 150-450 [facility] Comment on above: Result Comment: Canc elled via OM: Order cancelled - Patient discharged Performed By: #### L 500.2500, L100.0100 ####[facility] [address] [place], [address] RBC Normal 4.2-5.4 [facility] Comment on above: Result Comment: Canc elled via OM: Order cancelled - Patient discharged Performed By: #### L 500.2500, L100.0100 ####[facility] [address] [place], [address] RDW CV Normal 11.6-14.6 [facility] Comment on above: Result Comment: Canc elled via OM: Order cancelled - Patient discharged Performed By: #### L 500.2500, L100.0100 ####[facility] [address] [place], [address] RDW SD Normal 35.1-43.9 [facility] Comment on above: Result Comment: Canc elled via OM: Order cancelled - Patient discharged Performed By: #### L 500.2500, L100.0100 ####[facility] [address] [place], [address] WBC Normal 4.4-11.0 [facility] Comment on above: Result Comment: Canc elled via OM: Order cancelled - Patient discharged Performed By: #### L 500.2500, L100.0100 ####[facility] [address] [place], [address] Gram Stainon 05-25-2024 GS Normal [facility] Comment on above: Performed By: #### M 100.2000, M100.2400 ####[facility] [address] [place], [address] M100.019on 05-25-2024 M100.019 Negative Normal [facility] Comment on above: Performed By: #### M 100.019 ####[facility] [address] [place], [address] Venous Blood Gason 5 Blood Gas Type MARY Normal [facility] Comment on above: Performed By: #### L 9000.0810 ####[facility] [address] [place], [address] CO2 [Moles/Vol] 18 mmol/L Low 23-33 [facility] Comment on above: Performed By: #### L 9000.0810 ####[facility] [address] [place], [address] HCO3 (Bld) [Moles/Vol] 17 mmol/L Low 22-26 [facility] Comment on above: Performed By: #### L 9000.0810 ####[facility] [address] [place], [address] O2 Delivery Dev Not entered Normal [facility] Comment on above: Performed By: #### L 9000.0810 ####[facility] [address] [place], [address] SITE Not entered Normal [facility] Comment on above: Performed By: #### L 9000.0810 ####[facility] [address] [place], [address] VBG BE -7 mmol/L Low -1.0-3.5 [facility] Comment on above: Performed By: #### L 9000.0810 ####[facility] [address] [place], [address] VBG pCO2 22.6 mmHg Low 41-51 [facility] Comment on above: Performed By: #### L 9000.0810 ####[facility] [address] [place], [address] VBG pH 7.48 High 7.32-7.42 [facility] Comment on above: Performed By: #### L 9000.0810 ####[facility] [address] [place], [address] VBG PO2 188 mmHg High 25-40 [facility] Comment on above: Performed By: #### L 9000.0810 ####[facility] [address] [place], [address] VBG SO2 100 High 50-70 [facility] Comment on above: Performed By: #### L 9000.0810 ####[facility] [address] [place], [address] Basic Metabolic Profile (BMP )on 05-24-2024 BUN/CRE 21.8 RATIO High 10-20 [facility] Comment on above: Performed By: #### L 500.2500, L100.0100 ####[facility] [address] [place], [address] Calcium [Mass/Vol] 9.5 mg/dL Normal 7.6-11.0 [facility] Comment on above: Performed By: #### L 500.2500, L100.0100 ####[facility] [address] [place], [address] Chloride [Moles/Vol] 98 mmol/L Normal 98-108 [facility] Comment on above: Performed By: #### L 500.2500, L100.0100 ####[facility] [address] [place], [address] CO2 [Moles/Vol] 18.3 mmol/L Low 21.0-32.0 [facility] Comment on above: Performed By: #### L 500.2500, L100.0100 ####[facility] [address] [place], [address] Creatinine [Mass/Vol] 1.79 mg/dL High 0.70-1.20 [facility] Comment on above: Performed By: #### L 500.2500, L100.0100 ####[facility] [address] [place], [address] ECRCL 31.27 ml/min Low 50-250 [facility] Comment on above: Performed By: #### L 500.2500, L100.0100 ####[facility] [address] [place], [address] GAP 13 Normal 5-15 [facility] Comment on above: Performed By: #### L 500.2500, L100.0100 ####[facility] [address] [place], [address] GFR/1.73 sq M.predicted among non-blacks MDRD (S/P/Bld) [Vol rate/Area] 28 mL/min/{1.73_m2} Low >60 [facility] Comment on above: Result Comment: mL/m in/1.73m2 CKD-EPI Creatinine Equation (2020) Performed By: #### L 500.2500, L100.0100 ####[facility] [address] [place], [address] Glucose [Mass/Vol] 109 mg/dL High 70-99 [facility] Comment on above: Performed By: #### L 500.2500, L100.0100 ####[facility] [address] [place], [address] Potassium [Moles/Vol] 3.9 mmol/L Normal 3.3-5.1 [facility] Comment on above: Performed By: #### L 500.2500, L100.0100 ####[facility] [address] [place], [address] Sodium [Moles/Vol] 129 mmol/L Low 133-145 [facility] Comment on above: Performed By: #### L 500.2500, L100.0100 ####[facility] [address] [place], [address] Urea nitrogen [Mass/Vol] 39 mg/dL High 4-19 [facility] Comment on above: Performed By: #### L 500.2500, L100.0100 ####[facility] [address] [place], [address] Bedside Glucoseon 05-24-2024 FINGERSTICK GLU 141 mg/dL High 74-106 [facility] Comment on above: Result Comment: JASON GEMENT OF PATIENT CARE PER NURSING PROTOCOL Performed By: #### L 501.080 ####[facility] [address] [place], [address] FINGERSTICK GLU 165 mg/dL High 74-106 [facility] Comment on above: Result Comment: JASON GEMENT OF PATIENT CARE PER NURSING PROTOCOL Performed By: #### L 501.080 ####[facility] [address] [place], [address] FINGERSTICK GLU 112 mg/dL High 74-106 [facility] Comment on above: Result Comment: JASON GEMENT OF PATIENT CARE PER NURSING PROTOCOL Performed By: #### L 501.080 ####[facility] [address] [place], [address] CBC W/Diff, Automatedon 03-0 Absolute Lymph 1.64 X10 3/uL Normal 0.83-4.51 [facility] Comment on above: Performed By: #### L 500.2500, L100.0100 ####[facility] [address] [place], [address] Absolute Neut 7.0 X10 3/uL Normal 2.0-7.7 [facility] Comment on above: Performed By: #### L 500.2500, L100.0100 ####[facility] [address] [place], [address] Basophils/100 WBC (Bld) 0.5 % Normal 0-1 [facility] Comment on above: Performed By: #### L 500.2500, L100.0100 ####[facility] [address] [place], [address] Eosinophils/100 WBC (Bld) 0.7 % Normal 0-5 [facility] Comment on above: Performed By: #### L 500.2500, L100.0100 ####[facility] [address] [place], [address] Erythrocyte distribution width (RBC) [Ratio] 16.0 % High 11.6-14.6 [facility] Comment on above: Performed By: #### L 500.2500, L100.0100 ####[facility] [address] [place], [address] Hematocrit (Bld) [Volume fraction] 26.9 % Low 37-47 [facility] Comment on above: Performed By: #### L 500.2500, L100.0100 ####[facility] [address] [place], [address] Hemoglobin (Bld) [Mass/Vol] 8.8 g/dL Low 12.0-15.0 [facility] Comment on above: Performed By: #### L 500.2500, L100.0100 ####[facility] [address] [place], [address] IG% 0.600 Normal 0.0-0.9 [facility] Comment on above: Result Comment: IG% - Immature Granulocytes (promyelocytes, myelocytes andmetamyelocytes) > 1% indicates that a LEFT SHIFT is Present. Performed By: #### L 500.2500, L100.0100 ####[facility] [address] [place], [address] Lymphocytes/100 WBC (Bld) 17.4 % Low 19-41 [facility] Comment on above: Performed By: #### L 500.2500, L100.0100 ####[facility] [address] [place], [address] MCH (RBC) [Entitic mass] 32.5 pg High 27.0-32.0 [facility] Comment on above: Performed By: #### L 500.2500, L100.0100 ####[facility] [address] [place], [address] MCHC (RBC) [Mass/Vol] 32.7 g/dL Normal 32-36 [facility] Comment on above: Performed By: #### L 500.2500, L100.0100 ####[facility] [address] [place], [address] MCV (RBC) [Entitic vol] 99.3 fL High 81-99 [facility] Comment on above: Performed By: #### L 500.2500, L100.0100 ####[facility] [address] [place], [address] Monocytes/100 WBC (Bld) 6.9 % Normal 0-10 [facility] Comment on above: Performed By: #### L 500.2500, L100.0100 ####[facility] [address] [place], [address] Neutrophils/100 WBC (Bld) 73.9 % High 47-70 [facility] Comment on above: Performed By: #### L 500.2500, L100.0100 ####[facility] [address] [place], [address] Nucleated RBC (Bld) [#/Vol] 0 10*3/uL Normal 0-5 [facility] Comment on above: Performed By: #### L 500.2500, L100.0100 ####[facility] [address] [place], [address] Platelet mean volume (Bld) [Entitic vol] 9.4 fL Normal 6.2-12.0 [facility] Comment on above: Performed By: #### L 500.2500, L100.0100 ####[facility] [address] [place], [address] Platelets (Bld) [#/Vol] 289 10*3/uL Normal 150-450 [facility] Comment on above: Performed By: #### L 500.2500, L100.0100 ####[facility] [address] [place], [address] RBC (Bld) [#/Vol] 2.71 10*6/uL Low 4.2-5.4 [facility] Comment on above: Performed By: #### L 500.2500, L100.0100 ####[facility] [address] [place], [address] RDW SD 56.1 fl High 35.1-43.9 [facility] Comment on above: Performed By: #### L 500.2500, L100.0100 ####[facility] [address] [place], [address] WBC (Bld) [#/Vol] 9.4 10*3/uL Normal 4.4-11.0 [facility] Comment on above: Performed By: #### L 500.2500, L100.0100 ####[facility] [address] [place], [address] Basic Metabolic Profile (BMP )on 05-23-2024 BUN/CRE 23.4 RATIO High 10-20 [facility] Comment on above: Performed By: #### L 100.0100, L500.2500 ####[facility] [address] [place], [address] Calcium [Mass/Vol] 9.7 mg/dL Normal 7.6-11.0 [facility] Comment on above: Performed By: #### L 100.0100, L500.2500 ####[facility] [address] [place], [address] Chloride [Moles/Vol] 98 mmol/L Normal 98-108 [facility] Comment on above: Performed By: #### L 100.0100, L500.2500 ####[facility] [address] [place], [address] CO2 [Moles/Vol] 16.5 mmol/L Low 21.0-32.0 [facility] Comment on above: Performed By: #### L 100.0100, L500.2500 ####[facility] [address] [place], [address] Creatinine [Mass/Vol] 1.88 mg/dL High 0.70-1.20 [facility] Comment on above: Performed By: #### L 100.0100, L500.2500 ####[facility] [address] [place], [address] ECRCL 29.77 ml/min Low 50-250 [facility] Comment on above: Performed By: #### L 100.0100, L500.2500 ####[facility] [address] [place], [address] GAP 16 High 5-15 [facility] Comment on above: Performed By: #### L 100.0100, L500.2500 ####[facility] [address] [place], [address] GFR/1.73 sq M.predicted among non-blacks MDRD (S/P/Bld) [Vol rate/Area] 27 mL/min/{1.73_m2} Low >60 [facility] Comment on above: Result Comment: mL/m in/1.73m2 CKD-EPI Creatinine Equation (2020) Performed By: #### L 100.0100, L500.2500 ####[facility] [address] [place], [address] Glucose [Mass/Vol] 118 mg/dL High 70-99 [facility] Comment on above: Performed By: #### L 100.0100, L500.2500 ####[facility] [address] [place], [address] Potassium [Moles/Vol] 4.3 mmol/L Normal 3.3-5.1 [facility] Comment on above: Performed By: #### L 100.0100, L500.2500 ####[facility] [address] [place], [address] Sodium [Moles/Vol] 130 mmol/L Low 133-145 [facility] Comment on above: Performed By: #### L 100.0100, L500.2500 ####[facility] [address] [place], [address] Urea nitrogen [Mass/Vol] 44 mg/dL High 4-19 [facility] Comment on above: Performed By: #### L 100.0100, L500.2500 ####[facility] [address] [place], [address] Bedside Glucoseon 05-23-2024 FINGERSTICK GLU 214 mg/dL High 74-106 [facility] Comment on above: Result Comment: JASON GEMENT OF PATIENT CARE PER NURSING PROTOCOL Performed By: #### L 501.080 ####[facility] [address] [place], [address] FINGERSTICK GLU 172 mg/dL High 74-106 [facility] Comment on above: Result Comment: JASON GEMENT OF PATIENT CARE PER NURSING PROTOCOL Performed By: #### L 501.080 ####[facility] [address] [place], [address] FINGERSTICK GLU 189 mg/dL High 74-106 [facility] Comment on above: Result Comment: JASON GEMENT OF PATIENT CARE PER NURSING PROTOCOL Performed By: #### L 501.080 ####[facility] [address] [place], [address] FINGERSTICK GLU 104 mg/dL Normal 74-106 [facility] Comment on above: Result Comment: JASON GEMENT OF PATIENT CARE PER NURSING PROTOCOL Performed By: #### L 501.080 ####[facility] [address] [place], [address] FINGERSTICK GLU 94 mg/dL Normal 74-106 [facility] Comment on above: Result Comment: JASON GEMENT OF PATIENT CARE PER NURSING PROTOCOL Performed By: #### L 501.080 ####[facility] [address] [place], [address] CBC W/Diff, Automatedon 03-0 Absolute Lymph 1.22 X10 3/uL Normal 0.83-4.51 [facility] Comment on above: Performed By: #### L 100.0100, L500.2500 ####[facility] [address] [place], [address] Absolute Neut 5.8 X10 3/uL Normal 2.0-7.7 [facility] Comment on above: Performed By: #### L 100.0100, L500.2500 ####[facility] [address] [place], [address] Basophils/100 WBC (Bld) 0.8 % Normal 0-1 [facility] Comment on above: Performed By: #### L 100.0100, L500.2500 ####[facility] [facility] [address] [place], [address] Eosinophils/100 WBC (Bld) 2.3 % Normal 0-5 [facility] Comment on above: Performed By: #### L 100.0100, L500.2500 ####[facility] [address] [place], [address] Erythrocyte distribution width (RBC) [Ratio] 15.7 % High 11.6-14.6 [facility] Comment on above: Performed By: #### L 100.0100, L500.2500 ####[facility] [address] [place], [address] Hematocrit (Bld) [Volume fraction] 27.2 % Low 37-47 [facility] Comment on above: Performed By: #### L 100.0100, L500.2500 ####[facility] [address] [place], [address] Hemoglobin (Bld) [Mass/Vol] 8.8 g/dL Low 12.0-15.0 [facility] Comment on above: Performed By: #### L 100.0100, L500.2500 ####[facility] [address] [place], [address] IG% 0.600 Normal 0.0-0.9 [facility] Comment on above: Result Comment: IG% - Immature Granulocytes (promyelocytes, myelocytes andmetamyelocytes) > 1% indicates that a LEFT SHIFT is Present. Performed By: #### L 100.0100, L500.2500 ####[facility] [address] [place], [address] Lymphocytes/100 WBC (Bld) 15.6 % Low 19-41 [facility] Comment on above: Performed By: #### L 100.0100, L500.2500 ####[facility] [address] [place], [address] MCH (RBC) [Entitic mass] 32.0 pg Normal 27.0-32.0 [facility] Comment on above: Performed By: #### L 100.0100, L500.2500 ####[facility] [address] [place], [address] MCHC (RBC) [Mass/Vol] 32.4 g/dL Normal 32-36 [facility] Comment on above: Performed By: #### L 100.0100, L500.2500 ####[facility] [address] [place], [address] MCV (RBC) [Entitic vol] 98.9 fL Normal 81-99 [facility] Comment on above: Performed By: #### L 100.0100, L500.2500 ####[facility] [address] [place], [address] Monocytes/100 WBC (Bld) 6.7 % Normal 0-10 [facility] Comment on above: Performed By: #### L 100.0100, L500.2500 ####[facility] [address] [place], [address] Neutrophils/100 WBC (Bld) 74.0 % High 47-70 [facility] Comment on above: Performed By: #### L 100.0100, L500.2500 ####[facility] [address] [place], [address] Nucleated RBC (Bld) [#/Vol] 0 10*3/uL Normal 0-5 [facility] Comment on above: Performed By: #### L 100.0100, L500.2500 ####[facility] [address] [place], [address] Platelet mean volume (Bld) [Entitic vol] 9.6 fL Normal 6.2-12.0 [facility] Comment on above: Performed By: #### L 100.0100, L500.2500 ####[facility] [address] [place], [address] Platelets (Bld) [#/Vol] 274 10*3/uL Normal 150-450 [facility] Comment on above: Performed By: #### L 100.0100, L500.2500 ####[facility] [address] [place], [address] RBC (Bld) [#/Vol] 2.75 10*6/uL Low 4.2-5.4 [facility] Comment on above: Performed By: #### L 100.0100, L500.2500 ####[facility] [address] [place], [address] RDW SD 55.4 fl High 35.1-43.9 [facility] Comment on above: Performed By: #### L 100.0100, L500.2500 ####[facility] [address] [place], [address] WBC (Bld) [#/Vol] 7.8 10*3/uL Normal 4.4-11.0 [facility] Comment on above: Performed By: #### L 100.0100, L500.2500 ####[facility] [address] [place], [address] Basic Metabolic Profile (BMP )on 05-22-2024 BUN/CRE 27.1 RATIO High 10-20 [facility] Comment on above: Performed By: #### L 100.0100, L500.2500 ####[facility] [address] [place], [address] Calcium [Mass/Vol] 9.4 mg/dL Normal 7.6-11.0 [facility] Comment on above: Performed By: #### L 100.0100, L500.2500 ####[facility] [address] [place], [address] Chloride [Moles/Vol] 100 mmol/L Normal 98-108 [facility] Comment on above: Performed By: #### L 100.0100, L500.2500 ####[facility] [address] [place], [address] CO2 [Moles/Vol] 17.2 mmol/L Low 21.0-32.0 [facility] Comment on above: Performed By: #### L 100.0100, L500.2500 ####[facility] [address] [place], [address] Creatinine [Mass/Vol] 1.85 mg/dL High 0.70-1.20 [facility] Comment on above: Performed By: #### L 100.0100, L500.2500 ####[facility] [address] [place], [address] ECRCL 30.26 ml/min Low 50-250 [facility] Comment on above: Performed By: #### L 100.0100, L500.2500 ####[facility] [address] [place], [address] GAP 16 High 5-15 [facility] Comment on above: Performed By: #### L 100.0100, L500.2500 ####[facility] [address] [place], [address] GFR/1.73 sq M.predicted among non-blacks MDRD (S/P/Bld) [Vol rate/Area] 27 mL/min/{1.73_m2} Low >60 [facility] Comment on above: Result Comment: mL/m in/1.73m2 CKD-EPI Creatinine Equation (2020) Performed By: #### L 100.0100, L500.2500 ####[facility] [address] [place], [address] Glucose [Mass/Vol] 111 mg/dL High 70-99 [facility] Comment on above: Performed By: #### L 100.0100, L500.2500 ####[facility] [address] [place], [address] Potassium [Moles/Vol] 4.3 mmol/L Normal 3.3-5.1 [facility] Comment on above: Performed By: #### L 100.0100, L500.2500 ####[facility] [address] [place], [address] Sodium [Moles/Vol] 133 mmol/L Normal 133-145 [facility] Comment on above: Performed By: #### L 100.0100, L500.2500 ####[facility] [address] [place], [address] Urea nitrogen [Mass/Vol] 50 mg/dL High 4-19 [facility] Comment on above: Performed By: #### L 100.0100, L500.2500 ####[facility] [address] [place], [address] Bedside Glucoseon 05-22-2024 FINGERSTICK GLU 112 mg/dL High 74-106 [facility] Comment on above: Result Comment: JASON RODRIGUEZ OF PATIENT CARE PER NURSING PROTOCOL Performed By: #### L 501.080 ####[facility] [address] [place], [address] FINGERSTICK GLU 93 mg/dL Normal 74-106 [facility] Comment on above: Result Comment: JASON GEMENT OF PATIENT CARE PER NURSING PROTOCOL Performed By: #### L 501.080 ####[facility] [address] [place], [address] FINGERSTICK GLU 112 mg/dL High 74-106 [facility] Comment on above: Result Comment: JASON GEMENT OF PATIENT CARE PER NURSING PROTOCOL Performed By: #### L 501.080 ####[facility] [address] [place], [address] FINGERSTICK GLU 163 mg/dL High 74-106 [facility] Comment on above: Result Comment: JASON GEMENT OF PATIENT CARE PER NURSING PROTOCOL Performed By: #### L 501.080 ####[facility] [address] [place], [address] CBC W/Diff, Automatedon 03-0 7-2024 Absolute Lymph 1.11 X10 3/uL Normal 0.83-4.51 [facility] Comment on above: Performed By: #### L 100.0100, L500.2500 ####[facility] [address] [place], [address] Absolute Neut 6.8 X10 3/uL Normal 2.0-7.7 [facility] Comment on above: Performed By: #### L 100.0100, L500.2500 ####[facility] [address] [place], [address] Basophils/100 WBC (Bld) 0.5 % Normal 0-1 [facility] Comment on above: Performed By: #### L 100.0100, L500.2500 ####[facility] [address] [place], [address] Eosinophils/100 WBC (Bld) 0.3 % Normal 0-5 [facility] Comment on above: Performed By: #### L 100.0100, L500.2500 ####[facility] [address] [place], [address] Erythrocyte distribution width (RBC) [Ratio] 15.5 % High 11.6-14.6 [facility] Comment on above: Performed By: #### L 100.0100, L500.2500 ####[facility] [address] [place], [address] Hematocrit (Bld) [Volume fraction] 26.2 % Low 37-47 [facility] Comment on above: Performed By: #### L 100.0100, L500.2500 ####[facility] [address] [place], [address] Hemoglobin (Bld) [Mass/Vol] 8.5 g/dL Low 12.0-15.0 [facility] Comment on above: Performed By: #### L 100.0100, L500.2500 ####[facility] [address] [place], [address] IG% 0.700 Normal 0.0-0.9 [facility] Comment on above: Result Comment: IG% - Immature Granulocytes (promyelocytes, myelocytes andmetamyelocytes) > 1% indicates that a LEFT SHIFT is Present. Performed By: #### L 100.0100, L500.2500 ####[facility] [address] [place], [address] Lymphocytes/100 WBC (Bld) 12.9 % Low 19-41 [facility] Comment on above: Performed By: #### L 100.0100, L500.2500 ####[facility] [address] [place], [address] MCH (RBC) [Entitic mass] 32.4 pg High 27.0-32.0 [facility] Comment on above: Performed By: #### L 100.0100, L500.2500 ####[facility] [address] [place], [address] MCHC (RBC) [Mass/Vol] 32.4 g/dL Normal 32-36 [facility] Comment on above: Performed By: #### L 100.0100, L500.2500 ####[facility] [address] [place], [address] MCV (RBC) [Entitic vol] 100.0 fL High 81-99 [facility] Comment on above: Performed By: #### L 100.0100, L500.2500 ####[facility] [address] [place], [address] Monocytes/100 WBC (Bld) 6.3 % Normal 0-10 [facility] Comment on above: Performed By: #### L 100.0100, L500.2500 ####[facility] [address] [place], [address] Neutrophils/100 WBC (Bld) 79.3 % High 47-70 [facility] Comment on above: Performed By: #### L 100.0100, L500.2500 ####[facility] [address] [place], [address] Nucleated RBC (Bld) [#/Vol] 0 10*3/uL Normal 0-5 [facility] Comment on above: Performed By: #### L 100.0100, L500.2500 ####[facility] [address] [place], [address] Platelet mean volume (Bld) [Entitic vol] 9.3 fL Normal 6.2-12.0 [facility] Comment on above: Performed By: #### L 100.0100, L500.2500 ####[facility] [address] [place], [address] Platelets (Bld) [#/Vol] 260 10*3/uL Normal 150-450 [facility] Comment on above: Performed By: #### L 100.0100, L500.2500 ####[facility] [address] [place], [address] RBC (Bld) [#/Vol] 2.62 10*6/uL Low 4.2-5.4 [facility] Comment on above: Performed By: #### L 100.0100, L500.2500 ####[facility] [address] [place], [address] RDW SD 56.0 fl High 35.1-43.9 [facility] Comment on above: Performed By: #### L 100.0100, L500.2500 ####[facility] [address] [place], [address] WBC (Bld) [#/Vol] 8.6 10*3/uL Normal 4.4-11.0 [facility] Comment on above: Performed By: #### L 100.0100, L500.2500 ####[facility] [address] [place], [address] Basic Metabolic Profile (BMP )on 05-21-2024 BUN/CRE 26.5 RATIO High 10-20 [facility] Comment on above: Performed By: #### L 500.2500, L100.0100 ####[facility] [address] [place], [address] Calcium [Mass/Vol] 9.9 mg/dL Normal 7.6-11.0 [facility] Comment on above: Performed By: #### L 500.2500, L100.0100 ####[facility] [address] [place], [address] Chloride [Moles/Vol] 95 mmol/L Low 98-108 [facility] Comment on above: Performed By: #### L 500.2500, L100.0100 ####[facility] [address] [place], [address] CO2 [Moles/Vol] 19.8 mmol/L Low 21.0-32.0 [facility] Comment on above: Performed By: #### L 500.2500, L100.0100 ####[facility] [address] [place], [address] Creatinine [Mass/Vol] 1.98 mg/dL High 0.70-1.20 [facility] Comment on above: Performed By: #### L 500.2500, L100.0100 ####[facility] [address] [place], [address] ECRCL 27.17 ml/min Low 50-250 [facility] Comment on above: Performed By: #### L 500.2500, L100.0100 ####[facility] [address] [place], [address] GAP 13 Normal 5-15 [facility] Comment on above: Performed By: #### L 500.2500, L100.0100 ####[facility] [address] [place], [address] GFR/1.73 sq M.predicted among non-blacks MDRD (S/P/Bld) [Vol rate/Area] 25 mL/min/{1.73_m2} Low >60 [facility] Comment on above: Result Comment: mL/m in/1.73m2 CKD-EPI Creatinine Equation (2020) Performed By: #### L 500.2500, L100.0100 ####[facility] [address] [place], [address] Glucose [Mass/Vol] 174 mg/dL High 70-99 [facility] Comment on above: Performed By: #### L 500.2500, L100.0100 ####[facility] [address] [place], [address] Potassium [Moles/Vol] 4.4 mmol/L Normal 3.3-5.1 [facility] Comment on above: Performed By: #### L 500.2500, L100.0100 ####[facility] [address] [place], [address] Sodium [Moles/Vol] 127 mmol/L Low 133-145 [facility] Comment on above: Performed By: #### L 500.2500, L100.0100 ####[facility] [address] [place], [address] Urea nitrogen [Mass/Vol] 53 mg/dL High 4-19 [facility] Comment on above: Performed By: #### L 500.2500, L100.0100 ####[facility] [address] [place], [address] Bedside Glucoseon 05-21-2024 FINGERSTICK GLU 235 mg/dL High 74-106 [facility] Comment on above: Result Comment: JASON GEMENT OF PATIENT CARE PER NURSING PROTOCOL Performed By: #### L 501.080 ####[facility] [address] [place], [address] FINGERSTICK GLU 161 mg/dL High 74-106 [facility] Comment on above: Result Comment: JASON GEMENT OF PATIENT CARE PER NURSING PROTOCOL Performed By: #### L 501.080 ####[facility] [address] [place], [address] FINGERSTICK GLU 124 mg/dL High 74-106 [facility] Comment on above: Result Comment: JASON GEMENT OF PATIENT CARE PER NURSING PROTOCOL Performed By: #### L 501.080 ####[facility] [address] [place], [address] Brain/Head without Contrasto n 05-21-2024 Brain/Head without Contrast Normal [facility] CBC W/Diff, Automatedon 03-0 Absolute Lymph 1.03 X10 3/uL Normal 0.83-4.51 [facility] Comment on above: Performed By: #### L 500.4050, L100.0100 ####[facility] [address] [place], [address] Absolute Neut 7.6 X10 3/uL Normal 2.0-7.7 [facility] Comment on above: Performed By: #### L 500.4050, L100.0100 ####[facility] [address] [place], [address] Basophils/100 WBC (Bld) 0.5 % Normal 0-1 [facility] Comment on above: Performed By: #### L 500.4050, L100.0100 ####[facility] [address] [place], [address] Eosinophils/100 WBC (Bld) 1.3 % Normal 0-5 [facility] Comment on above: Performed By: #### L 500.4050, L100.0100 ####[facility] [address] [place], [address] Erythrocyte distribution width (RBC) [Ratio] 15.8 % High 11.6-14.6 [facility] Comment on above: Performed By: #### L 500.4050, L100.0100 ####[facility] [address] [place], [address] Hematocrit (Bld) [Volume fraction] 27.3 % Low 37-47 [facility] Comment on above: Performed By: #### L 500.4050, L100.0100 ####[facility] [address] [place], [address] Hemoglobin (Bld) [Mass/Vol] 9.0 g/dL Low 12.0-15.0 [facility] Comment on above: Performed By: #### L 500.4050, L100.0100 ####[facility] [address] [place], [address] IG% 0.700 Normal 0.0-0.9 [facility] Comment on above: Result Comment: IG% - Immature Granulocytes (promyelocytes, myelocytes andmetamyelocytes) > 1% indicates that a LEFT SHIFT is Present. Performed By: #### L 500.4050, L100.0100 ####[facility] [address] [place], [address] Lymphocytes/100 WBC (Bld) 10.9 % Low 19-41 [facility] Comment on above: Performed By: #### L 500.4050, L100.0100 ####[facility] [address] [place], [address] MCH (RBC) [Entitic mass] 32.0 pg Normal 27.0-32.0 [facility] Comment on above: Performed By: #### L 500.4050, L100.0100 ####[facility] [address] [place], [address] MCHC (RBC) [Mass/Vol] 33.0 g/dL Normal 32-36 [facility] Comment on above: Performed By: #### L 500.4050, L100.0100 ####[facility] [address] [place], [address] MCV (RBC) [Entitic vol] 97.2 fL Normal 81-99 [facility] Comment on above: Performed By: #### L 500.4050, L100.0100 ####[facility] [address] [place], [address] Monocytes/100 WBC (Bld) 6.2 % Normal 0-10 [facility] Comment on above: Performed By: #### L 500.4050, L100.0100 ####[facility] [address] [place], [address] Neutrophils/100 WBC (Bld) 80.4 % High 47-70 [facility] Comment on above: Performed By: #### L 500.4050, L100.0100 ####[facility] [address] [place], [address] Nucleated RBC (Bld) [#/Vol] 0 10*3/uL Normal 0-5 [facility] Comment on above: Performed By: #### L 500.4050, L100.0100 ####[facility] [address] [place], [address] Platelet mean volume (Bld) [Entitic vol] 9.6 fL Normal 6.2-12.0 [facility] Comment on above: Performed By: #### L 500.4050, L100.0100 ####[facility] [address] [place], [address] Platelets (Bld) [#/Vol] 309 10*3/uL Normal 150-450 [facility] Comment on above: Performed By: #### L 500.4050, L100.0100 ####[facility] [address] [place], [address] RBC (Bld) [#/Vol] 2.81 10*6/uL Low 4.2-5.4 [facility] Comment on above: Performed By: #### L 500.4050, L100.0100 ####[facility] [address] [place], [address] RDW SD 55.8 fl High 35.1-43.9 [facility] Comment on above: Performed By: #### L 500.4050, L100.0100 ####[facility] [address] [place], [address] WBC (Bld) [#/Vol] 9.5 10*3/uL Normal 4.4-11.0 [facility] Comment on above: Performed By: #### L 500.4050, L100.0100 ####[facility] [address] [place], [address] Absolute Lymph 1.05 X10 3/uL Normal 0.83-4.51 [facility] Comment on above: Performed By: #### L 500.2500, L100.0100 ####[facility] [address] [place], [address] Absolute Neut 6.9 X10 3/uL Normal 2.0-7.7 [facility] Comment on above: Performed By: #### L 500.2500, L100.0100 ####[facility] [address] [place], [address] Basophils/100 WBC (Bld) 0.6 % Normal 0-1 [facility] Comment on above: Performed By: #### L 500.2500, L100.0100 ####[facility] [address] [place], [address] Eosinophils/100 WBC (Bld) 1.1 % Normal 0-5 [facility] Comment on above: Performed By: #### L 500.2500, L100.0100 ####[facility] [address] [place], [address] Erythrocyte distribution width (RBC) [Ratio] 15.2 % High 11.6-14.6 [facility] Comment on above: Performed By: #### L 500.2500, L100.0100 ####[facility] [address] [place], [address] Hematocrit (Bld) [Volume fraction] 26.9 % Low 37-47 [facility] Comment on above: Performed By: #### L 500.2500, L100.0100 ####[facility] [address] [place], [address] Hemoglobin (Bld) [Mass/Vol] 8.6 g/dL Low 12.0-15.0 [facility] Comment on above: Performed By: #### L 500.2500, L100.0100 ####[facility] [address] [place], [address] IG% 0.700 Normal 0.0-0.9 [facility] Comment on above: Result Comment: IG% - Immature Granulocytes (promyelocytes, myelocytes andmetamyelocytes) > 1% indicates that a LEFT SHIFT is Present. Performed By: #### L 500.2500, L100.0100 ####[facility] [address] [place], [address] Lymphocytes/100 WBC (Bld) 12.0 % Low 19-41 [facility] Comment on above: Performed By: #### L 500.2500, L100.0100 ####[facility] [address] [place], [address] MCH (RBC) [Entitic mass] 31.4 pg Normal 27.0-32.0 [facility] Comment on above: Performed By: #### L 500.2500, L100.0100 ####[facility] [address] [place], [address] MCHC (RBC) [Mass/Vol] 32.0 g/dL Normal 32-36 [facility] Comment on above: Performed By: #### L 500.2500, L100.0100 ####[facility] [address] [place], [address] MCV (RBC) [Entitic vol] 98.2 fL Normal 81-99 [facility] Comment on above: Performed By: #### L 500.2500, L100.0100 ####[facility] [address] [place], [address] Monocytes/100 WBC (Bld) 6.7 % Normal 0-10 [facility] Comment on above: Performed By: #### L 500.2500, L100.0100 ####[facility] [address] [place], [address] Neutrophils/100 WBC (Bld) 78.9 % High 47-70 [facility] Comment on above: Performed By: #### L 500.2500, L100.0100 ####[facility] [address] [place], [address] Nucleated RBC (Bld) [#/Vol] 0 10*3/uL Normal 0-5 [facility] Comment on above: Performed By: #### L 500.2500, L100.0100 ####[facility] [address] [place], [address] Platelet mean volume (Bld) [Entitic vol] 9.0 fL Normal 6.2-12.0 [facility] Comment on above: Performed By: #### L 500.2500, L100.0100 ####[facility] [address] [place], [address] Platelets (Bld) [#/Vol] 277 10*3/uL Normal 150-450 [facility] Comment on above: Performed By: #### L 500.2500, L100.0100 ####[facility] [address] [place], [address] RBC (Bld) [#/Vol] 2.74 10*6/uL Low 4.2-5.4 [facility] Comment on above: Performed By: #### L 500.2500, L100.0100 ####[facility] [address] [place], [address] RDW SD 54.3 fl High 35.1-43.9 [facility] Comment on above: Performed By: #### L 500.2500, L100.0100 ####[facility] [address] [place], [address] WBC (Bld) [#/Vol] 8.8 10*3/uL Normal 4.4-11.0 [facility] Comment on above: Performed By: #### L 500.2500, L100.0100 ####[facility] [address] [place], [address] COVID 19 AG RAPID ([place])on 05-21-2024 SARS-CoV-2 (COVID-19) RNA ALY+probe Ql (Unsp spec) Normal [facility] Comment on above: Performed By: #### M 100.505 ####[facility] [address] [place], [address] Chest 1 View (Portable)on Chest 1 View (Portable) Normal [facility] Comprehensive Metabolic Prof ilon 05-21-2024 Albumin [Mass/Vol] 3.9 g/dL Normal 3.4-4.8 [facility] Comment on above: Performed By: #### L 500.4050, L100.0100 ####[facility] [address] [place], [address] Albumin/Globulin [Mass ratio] 1.2 {ratio} Normal 0.9-2.4 [facility] Comment on above: Performed By: #### L 500.4050, L100.0100 ####[facility] [address] [place], [address] ALK PHOS 139 U/L High 35-104 [facility] Comment on above: Performed By: #### L 500.4050, L100.0100 ####[facility] [address] [place], [address] ALT [Catalytic activity/Vol] 20 U/L Normal <=34 [facility] Comment on above: Performed By: #### L 500.4050, L100.0100 ####[facility] [address] [place], [address] AST [Catalytic activity/Vol] 20 U/L Normal <=31 [facility] Comment on above: Result Comment: Hemo lysis present, Results??could be affected.?? Performed By: #### L 500.4050, L100.0100 ####[facility] [address] [place], [address] Bilirubin [Mass/Vol] 0.34 mg/dL Normal 0.00-1.30 [facility] Comment on above: Performed By: #### L 500.4050, L100.0100 ####[facility] [address] [place], [address] BUN/CRE 25.6 RATIO High 10-20 [facility] Comment on above: Performed By: #### L 500.4050, L100.0100 ####[facility] [address] [place], [address] Calcium [Mass/Vol] 10.4 mg/dL Normal 7.6-11.0 [facility] Comment on above: Performed By: #### L 500.4050, L100.0100 ####[facility] [address] [place], [address] Chloride [Moles/Vol] 94 mmol/L Low 98-108 [facility] Comment on above: Performed By: #### L 500.4050, L100.0100 ####[facility] [address] [place], [address] CO2 [Moles/Vol] 19.9 mmol/L Low 21.0-32.0 [facility] Comment on above: Performed By: #### L 500.4050, L100.0100 ####[facility] [address] [place], [address] Creatinine [Mass/Vol] 2.06 mg/dL High 0.70-1.20 [facility] Comment on above: Performed By: #### L 500.4050, L100.0100 ####[facility] [address] [place], [address] ECRCL 27.17 ml/min Low 50-250 [facility] Comment on above: Performed By: #### L 500.4050, L100.0100 ####[facility] [address] [place], [address] GAP 14 Normal 5-15 [facility] Comment on above: Performed By: #### L 500.4050, L100.0100 ####[facility] [address] [place], [address] GFR/1.73 sq M.predicted among non-blacks MDRD (S/P/Bld) [Vol rate/Area] 24 mL/min/{1.73_m2} Low >60 [facility] Comment on above: Result Comment: mL/m in/1.73m2 CKD-EPI Creatinine Equation (2020) Performed By: #### L 500.4050, L100.0100 ####[facility] [address] [place], [address] Globulin (S) [Mass/Vol] 3.1 g/dL Normal 2.2-4.2 [facility] Comment on above: Performed By: #### L 500.4050, L100.0100 ####[facility] [address] [place], [address] Glucose [Mass/Vol] 170 mg/dL High 70-99 [facility] Comment on above: Performed By: #### L 500.4050, L100.0100 ####[facility] [address] [place], [address] Potassium [Moles/Vol] 4.8 mmol/L Normal 3.3-5.1 [facility] Comment on above: Result Comment: Hemo lysis present, Results??could be affected.?? Performed By: #### L 500.4050, L100.0100 ####[facility] [address] [place], [address] Sodium [Moles/Vol] 128 mmol/L Low 133-145 [facility] Comment on above: Performed By: #### L 500.4050, L100.0100 ####[facility] [address] [place], [address] T PROT 7.0 g/dL Normal 5.9-8.4 [facility] Comment on above: Performed By: #### L 500.4050, L100.0100 ####[facility] [address] [place], [address] Urea nitrogen [Mass/Vol] 53 mg/dL High 4-19 [facility] Comment on above: Performed By: #### L 500.4050, L100.0100 ####[facility] [address] [place], [address] Emergency Department Summary on 05-21-2024 Emergency Department Summary Normal [facility] H AND P Exam - Hospitaliston 05-21-2024 H&P Exam - Hospitalist Normal [facility] M100.678on 05-21-2024 M100.678 Pending SARS-CoV-2 (COVID 19) Negative INFLUENZA A Negative INFLUENZA B Negative RSV PCR Negative Normal [facility] Comment on above: Performed By: #### M 100.678, L400.0001 ####[facility] [address] [place], [address] Urinalysis, Completeon 05-21 EPI,SQUAMOUS 0-5 SEEN Normal 5-10 [facility] Comment on above: Order Comment: CLEAN CATCH Performed By: #### M 100.678, L400.0001 ####[facility] [address] [place], [address] RBC 0-5 SEEN Normal 0-5 [facility] Comment on above: Order Comment: CLEAN CATCH Performed By: #### M 100.678, L400.0001 ####[facility] [address] [place], [address] BACTERIA 0 SEEN Normal None Seen [facility] Comment on above: Order Comment: CLEAN CATCH Performed By: #### M 100.678, L400.0001 ####[facility] [address] [place], [address] Mucus Ql (Urine sed) 0 SEEN Normal [facility] Comment on above: Order Comment: CLEAN CATCH Performed By: #### M 100.678, L400.0001 ####[facility] [address] [place], [address] WBC 0 SEEN Normal 0-5 [facility] Comment on above: Order Comment: CLEAN CATCH Performed By: #### M 100.678, L400.0001 ####[facility] [address] [place], [address] Venous Blood Gason 5 Blood Gas Type MARY Normal [facility] Comment on above: Performed By: #### L 9000.0810 ####[facility] [address] [place], [address] CO2 [Moles/Vol] 22 mmol/L Low 23-33 [facility] Comment on above: Performed By: #### L 9000.0810 ####[facility] [address] [place], [address] FI02 3.0 Normal [facility] Comment on above: Performed By: #### L 9000.0810 ####[facility] [address] [place], [address] HCO3 (Bld) [Moles/Vol] 21 mmol/L Low 22-26 [facility] Comment on above: Performed By: #### L 9000.0810 ####[facility] [address] [place], [address] O2 Delivery Dev Cannula Normal [facility] Comment on above: Performed By: #### L 9000.0810 ####[facility] [address] [place], [address] SITE Not entered Normal [facility] Comment on above: Performed By: #### L 9000.0810 ####[facility] [address] [place], [address] VBG BE -5 mmol/L Low -1.0-3.5 [facility] Comment on above: Performed By: #### L 9000.0810 ####[facility] [address] [place], [address] VBG pCO2 34.1 mmHg Low 41-51 [facility] Comment on above: Performed By: #### L 9000.0810 ####[facility] [address] [place], [address] VBG pH 7.39 Normal 7.32-7.42 [facility] Comment on above: Performed By: #### L 9000.0810 ####[facility] [address] [place], [address] VBG PO2 65 mmHg High 25-40 [facility] Comment on above: Performed By: #### L 9000.0810 ####[facility] [address] [place], [address] VBG SO2 93 High 50-70 [facility] Comment on above: Performed By: #### L 9000.0810 ####[facility] [address] [place], [address] Bedside Glucoseon 05-20-2024 FINGERSTICK GLU 164 mg/dL High 74-106 [facility] Comment on above: Result Comment: JASON RODRIGUEZ OF PATIENT CARE PER NURSING PROTOCOL Performed By: #### L 501.080 ####[facility] [address] [place], [address] FINGERSTICK GLU 95 mg/dL Normal 74-106 [facility] Comment on above: Result Comment: JASON GEMENT OF PATIENT CARE PER NURSING PROTOCOL Performed By: #### L 501.080 ####[facility] [address] [place], [address] Bedside Glucoseon 05-19-2024 FINGERSTICK GLU 191 mg/dL High 74-106 [facility] Comment on above: Result Comment: JASON GEMENT OF PATIENT CARE PER NURSING PROTOCOL Performed By: #### L 501.080 ####[facility] [address] [place], [address] FINGERSTICK GLU 98 mg/dL Normal 74-106 [facility] Comment on above: Result Comment: JASON GEMENT OF PATIENT CARE PER NURSING PROTOCOL Performed By: #### L 501.080 ####[facility] [address] [place], [address] Basic Metabolic Profile (BMP )on 05-18-2024 Anion gap [Moles/Vol] 13 mmol/L Normal 5-15 [facility] Comment on above: Performed By: #### L 500.2500 ####[facility] [address] [place], [address] BUN/CRE 31.0 RATIO High 10-20 [facility] Comment on above: Performed By: #### L 500.2500 ####[facility] [address] [place], [address] Calcium [Mass/Vol] 9.9 mg/dL Normal 7.6-11.0 [facility] Comment on above: Performed By: #### L 500.2500 ####[facility] [address] [place], [address] Chloride [Moles/Vol] 100 mmol/L Normal 96-108 [facility] Comment on above: Performed By: #### L 500.2500 ####[facility] [address] [place], [address] CO2 [Moles/Vol] 20.9 mmol/L Low 22.0-29.0 [facility] Comment on above: Performed By: #### L 500.2500 ####[facility] [address] [place], [address] Creatinine [Mass/Vol] 1.82 mg/dL High 0.70-1.20 [facility] Comment on above: Performed By: #### L 500.2500 ####[facility] [address] [place], [address] ECRCL 29.73 ml/min Low 50-250 [facility] Comment on above: Performed By: #### L 500.2500 ####[facility] [address] [place], [address] GFR/1.73 sq M.predicted among non-blacks MDRD (S/P/Bld) [Vol rate/Area] 28 mL/min/{1.73_m2} Low >60 [facility] Comment on above: Result Comment: mL/m in/1.73m2 CKD-EPI Creatinine Equation (2020) Performed By: #### L 500.2500 ####[facility] [address] [place], [address] Glucose [Mass/Vol] 114 mg/dL High 70-99 [facility] Comment on above: Performed By: #### L 500.2500 ####[facility] [address] [place], [address] Potassium [Moles/Vol] 4.6 mmol/L Normal 3.3-5.1 [facility] Comment on above: Performed By: #### L 500.2500 ####[facility] [address] [place], [address] Sodium [Moles/Vol] 134 mmol/L Normal 133-145 [facility] Comment on above: Performed By: #### L 500.2500 ####[facility] [address] [place], [address] Urea nitrogen [Mass/Vol] 57 mg/dL High 4-19 [facility] Comment on above: Performed By: #### L 500.2500 ####[facility] [address] [place], [address] BUN Normal 7-18 [facility] Comment on above: Result Comment: WILL REORDER Performed By: #### L 100.0100, L500.2500 ####[facility] [address] [place], [address] BUN/CRE Normal 10-20 [facility] Comment on above: Result Comment: WILL REORDER Performed By: #### L 100.0100, L500.2500 ####[facility] [address] [place], [address] Calcium Normal 8.5-10.1 [facility] Comment on above: Result Comment: WILL REORDER Performed By: #### L 100.0100, L500.2500 ####[facility] [address] [place], [address] CL Normal 98-107 [facility] Comment on above: Result Comment: WILL REORDER Performed By: #### L 100.0100, L500.2500 ####[facility] [address] [place], [address] CO2 Normal 21.0-32.0 [facility] Comment on above: Result Comment: WILL REORDER Performed By: #### L 100.0100, L500.2500 ####[facility] [address] [place], [address] CREAT,SERUM Normal 0.55-1.02 [facility] Comment on above: Result Comment: WILL REORDER Performed By: #### L 100.0100, L500.2500 ####[facility] [address] [place], [address] eGFR Normal >60 [facility] Comment on above: Result Comment: WILL REORDER Performed By: #### L 100.0100, L500.2500 ####[facility] [address] [place], [address] EST GFR - AA Normal >60 [facility] Comment on above: Result Comment: WILL REORDER Performed By: #### L 100.0100, L500.2500 ####[facility] [address] [place], [address] GAP Normal 5-15 [facility] Comment on above: Result Comment: WILL REORDER Performed By: #### L 100.0100, L500.2500 ####[facility] [address] [place], [address] GLU Normal 74-106 [facility] Comment on above: Result Comment: WILL REORDER Performed By: #### L 100.0100, L500.2500 ####[facility] [address] [place], [address] Potassium Normal 3.5-5.1 [facility] Comment on above: Result Comment: WILL REORDER Performed By: #### L 100.0100, L500.2500 ####[facility] [address] [place], [address] Basic Metabolic Profile (BMP) Normal 136-145 [facility] Comment on above: Result Comment: WILL REORDER Performed By: #### L 100.0100, L500.2500 ####[facility] [address] [place], [address] Bedside Glucoseon 05-18-2024 FINGERSTICK GLU 174 mg/dL High 74-106 [facility] Comment on above: Result Comment: JASON JENNIFER OF PATIENT CARE PER NURSING PROTOCOL Performed By: #### L 501.080 ####[facility] [address] [place], [address] FINGERSTICK GLU 63 mg/dL Low 74-106 [facility] Comment on above: Result Comment: JASON GEMENT OF PATIENT CARE PER NURSING PROTOCOL Performed By: #### L 501.080 ####[facility] [address] [place], [address] FINGERSTICK GLU 59 mg/dL Low 74-106 [facility] Comment on above: Result Comment: JASON GEMENT OF PATIENT CARE PER NURSING PROTOCOL Performed By: #### L 501.080 ####[facility] [address] [place], [address] FINGERSTICK GLU 110 mg/dL High 74-106 [facility] Comment on above: Result Comment: JASON GEMENT OF PATIENT CARE PER NURSING PROTOCOL Performed By: #### L 501.080 ####[facility] [address] [place], [address] CBC W/Diff, Automatedon 03-0 3-2025 Absolute Lymph 1.30 X10 3/uL Normal 0.83-4.51 [facility] Comment on above: Performed By: #### L 100.0100, L500.2500 ####[facility] [address] [place], [address] Absolute Neut 5.9 X10 3/uL Normal 2.0-7.7 [facility] Comment on above: Performed By: #### L 100.0100, L500.2500 ####[facility] [address] [place], [address] Basophils/100 WBC (Bld) 0.6 % Normal 0-1 [facility] Comment on above: Performed By: #### L 100.0100, L500.2500 ####[facility] [address] [place], [address] Eosinophils/100 WBC (Bld) 3.5 % Normal 0-5 [facility] Comment on above: Performed By: #### L 100.0100, L500.2500 ####[facility] [address] [place], [address] Erythrocyte distribution width (RBC) [Ratio] 15.2 % High 11.6-14.6 [facility] Comment on above: Performed By: #### L 100.0100, L500.2500 ####[facility] [address] [place], [address] Hematocrit (Bld) [Volume fraction] 26.4 % Low 37-47 [facility] Comment on above: Performed By: #### L 100.0100, L500.2500 ####[facility] [address] [place], [address] Hemoglobin (Bld) [Mass/Vol] 8.3 g/dL Low 12.0-15.0 [facility] Comment on above: Performed By: #### L 100.0100, L500.2500 ####[facility] [address] [place], [address] IG% 1.000 High 0.0-0.9 [facility] Comment on above: Result Comment: IG% - Immature Granulocytes (promyelocytes, myelocytes andmetamyelocytes) > 1% indicates that a LEFT SHIFT is Present. Performed By: #### L 100.0100, L500.2500 ####[facility] [address] [place], [address] Lymphocytes/100 WBC (Bld) 15.7 % Low 19-41 [facility] Comment on above: Performed By: #### L 100.0100, L500.2500 ####[facility] [address] [place], [address] MCH (RBC) [Entitic mass] 31.9 pg Normal 27.0-32.0 [facility] Comment on above: Performed By: #### L 100.0100, L500.2500 ####[facility] [address] [place], [address] MCHC (RBC) [Mass/Vol] 31.4 g/dL Low 32-36 [facility] Comment on above: Performed By: #### L 100.0100, L500.2500 ####[facility] [address] [place], [address] MCV (RBC) [Entitic vol] 101.5 fL High 81-99 [facility] Comment on above: Performed By: #### L 100.0100, L500.2500 ####[facility] [address] [place], [address] Monocytes/100 WBC (Bld) 7.7 % Normal 0-10 [facility] Comment on above: Performed By: #### L 100.0100, L500.2500 ####[facility] [address] [place], [address] Neutrophils/100 WBC (Bld) 71.5 % High 47-70 [facility] Comment on above: Performed By: #### L 100.0100, L500.2500 ####[facility] [address] [place], [address] Nucleated RBC (Bld) [#/Vol] 0 10*3/uL Normal 0-5 [facility] Comment on above: Performed By: #### L 100.0100, L500.2500 ####[facility] [address] [place], [address] Platelet mean volume (Bld) [Entitic vol] 9.0 fL Normal 6.2-12.0 [facility] Comment on above: Performed By: #### L 100.0100, L500.2500 ####[facility] [address] [place], [address] Platelets (Bld) [#/Vol] 302 10*3/uL Normal 150-450 [facility] Comment on above: Performed By: #### L 100.0100, L500.2500 ####[facility] [address] [place], [address] RBC (Bld) [#/Vol] 2.60 10*6/uL Low 4.2-5.4 [facility] Comment on above: Performed By: #### L 100.0100, L500.2500 ####[facility] [address] [place], [address] RDW SD 55.3 fl High 35.1-43.9 [facility] Comment on above: Performed By: #### L 100.0100, L500.2500 ####[facility] [address] [place], [address] WBC (Bld) [#/Vol] 8.3 10*3/uL Normal 4.4-11.0 [facility] Comment on above: Performed By: #### L 100.0100, L500.2500 ####[facility] [address] [place], [address] Urine Cultureon 05-18-2024 URC Normal [facility] Comment on above: Performed By: #### M 100.2200, L400.0001 ####[facility] [address] [place], [address] Bedside Glucoseon 05-17-2024 FINGERSTICK GLU 182 mg/dL High 74-106 [facility] Comment on above: Result Comment: JASON GEMENT OF PATIENT CARE PER NURSING PROTOCOL Performed By: #### L 501.080 ####[facility] [address] [place], [address] FINGERSTICK GLU 89 mg/dL Normal 74-106 [facility] Comment on above: Result Comment: JASON GEMENT OF PATIENT CARE PER NURSING PROTOCOL Performed By: #### L 501.080 ####[facility] [address] [place], [address] Bedside Glucoseon 05-16-2024 FINGERSTICK GLU 149 mg/dL High 74-106 [facility] Comment on above: Result Comment: JASON GEMENT OF PATIENT CARE PER NURSING PROTOCOL Performed By: #### L 501.080 ####[facility] [address] [place], [address] FINGERSTICK GLU 191 mg/dL High 74-106 [facility] Comment on above: Result Comment: JASON GEMENT OF PATIENT CARE PER NURSING PROTOCOL Performed By: #### L 501.080 ####[facility] [address] [place], [address] FINGERSTICK GLU 78 mg/dL Normal 74-106 [facility] Comment on above: Result Comment: JASON GEMENT OF PATIENT CARE PER NURSING PROTOCOL Performed By: #### L 501.080 ####[facility] [address] [place], [address] Urinalysis, Completeon 05-16 RBC 0 SEEN Normal 0-5 [facility] Comment on above: Order Comment: YANNA TER SPECIMEN Performed By: #### M 100.2200, L400.0001 ####[facility] [address] [place], [address] Bedside Glucoseon 05-15-2024 FINGERSTICK GLU 113 mg/dL High 74-106 [facility] Comment on above: Result Comment: JASON GEMENT OF PATIENT CARE PER NURSING PROTOCOL Performed By: #### L 501.080 ####[facility] [address] [place], [address] FINGERSTICK GLU 107 mg/dL High 74-106 [facility] Comment on above: Result Comment: JASON GEMENT OF PATIENT CARE PER NURSING PROTOCOL Performed By: #### L 501.080 ####[facility] [address] [place], [address] Bedside Glucoseon 05-14-2024 FINGERSTICK GLU 147 mg/dL High 74-106 [facility] Comment on above: Result Comment: JASON GEMENT OF PATIENT CARE PER NURSING PROTOCOL Performed By: #### L 501.080 ####[facility] [address] [place], [address] FINGERSTICK GLU 109 mg/dL High 74-106 [facility] Comment on above: Result Comment: JASON GEMENT OF PATIENT CARE PER NURSING PROTOCOL Performed By: #### L 501.080 ####[facility] [address] [place], [address] Bedside Glucoseon 05-13-2024 FINGERSTICK GLU 184 mg/dL High 74-106 [facility] Comment on above: Result Comment: JASON GEMENT OF PATIENT CARE PER NURSING PROTOCOL Performed By: #### L 501.080 ####[facility] [address] [place], [address] FINGERSTICK GLU 204 mg/dL High -106 [facility] Comment on above: Result Comment: JASON GEMENT OF PATIENT CARE PER NURSING PROTOCOL Performed By: #### L 501.080 ####[facility] [address] [place], [address] FINGERSTICK GLU 183 mg/dL High 74-106 [facility] Comment on above: Result Comment: JASON GEMENT OF PATIENT CARE PER NURSING PROTOCOL Performed By: #### L 501.080 ####[facility] [address] [place], [address] FINGERSTICK GLU 144 mg/dL High -106 [facility] Comment on above: Result Comment: JASON GEMENT OF PATIENT CARE PER NURSING PROTOCOL Performed By: #### L 501.080 ####[facility] [address] [place], [address] Bedside Glucoseon 05-12-2024 FINGERSTICK GLU 158 mg/dL High 74-106 [facility] Comment on above: Result Comment: JASON GEMENT OF PATIENT CARE PER NURSING PROTOCOL Performed By: #### L 501.080 ####[facility] [address] [place], [address] FINGERSTICK GLU 146 mg/dL High 74-106 [facility] Comment on above: Result Comment: JASON GEMENT OF PATIENT CARE PER NURSING PROTOCOL Performed By: #### L 501.080 ####[facility] [address] [place], [address] Femur Min 2 Viewson 05-12-19 25 Femur Min 2 Views Normal [facility] Orthopedic Visit Reporton Orthopedic Visit Report Normal [facility] Basic Metabolic Profile (BMP )on 05-11-2024 BUN/CRE 27.6 RATIO High 10-20 [facility] Comment on above: Performed By: #### L 500.2500, L100.0100 ####[facility] [address] [place], [address] CA,Total 9.8 mg/dL Normal 8.5-10.1 [facility] Comment on above: Performed By: #### L 500.2500, L100.0100 ####[facility] [address] [place], [address] Chloride [Moles/Vol] 100 mmol/L Normal 98-107 [facility] Comment on above: Performed By: #### L 500.2500, L100.0100 ####[facility] [address] [place], [address] CO2 [Moles/Vol] 24.0 mmol/L Normal 21.0-32.0 [facility] Comment on above: Performed By: #### L 500.2500, L100.0100 ####[facility] [address] [place], [address] Creatinine [Mass/Vol] 1.85 mg/dL High 0.55-1.02 [facility] Comment on above: Result Comment: The validity of the calculated GFR GFRAA in patients over70 years has not been determined. Clinical correlation isessential. Performed By: #### L 500.2500, L100.0100 ####[facility] [address] [place], [address] ECRCL 29.52 ml/min Normal [facility] Comment on above: Performed By: #### L 500.2500, L100.0100 ####[facility] [address] [place], [address] EST GFR - AA 34 mL/min Low >60 [facility] Comment on above: Result Comment: Afri can Citizen [place] GFR Calc Performed By: #### L 500.2500, L100.0100 ####[facility] [address] [place], [address] GAP 9 Normal 5-15 [facility] Comment on above: Performed By: #### L 500.2500, L100.0100 ####[facility] [address] [place], [address] GFR/1.73 sq M.predicted among non-blacks MDRD (S/P/Bld) [Vol rate/Area] 28 mL/min/{1.73_m2} Low >60 [facility] Comment on above: Result Comment: Non- GFR Calc Performed By: #### L 500.2500, L100.0100 ####[facility] [address] [place], [address] Glucose [Mass/Vol] 138 mg/dL High 74-106 [facility] Comment on above: Result Comment: Fast ing Glucose result greater than or equal to 126 mg/dLsuggests DIABETES MELLITUS per A.D.A. criteria. Performed By: #### L 500.2500, L100.0100 ####[facility] [address] [place], [address] Potassium [Moles/Vol] 4.4 mmol/L Normal 3.5-5.1 [facility] Comment on above: Performed By: #### L 500.2500, L100.0100 ####[facility] [address] [place], [address] Sodium [Moles/Vol] 133 mmol/L Low 136-145 [facility] Comment on above: Performed By: #### L 500.2500, L100.0100 ####[facility] [address] [place], [address] Urea nitrogen [Mass/Vol] 51 mg/dL High 7-18 [facility] Comment on above: Performed By: #### L 500.2500, L100.0100 ####[facility] [address] [place], [address] Bedside Glucoseon - FINGERSTICK GLU 249 mg/dL High 74-106 [facility] Comment on above: Result Comment: JASON GEMENT OF PATIENT CARE PER NURSING PROTOCOL Performed By: #### L 501.080 ####[facility] [address] [place], [address] FINGERSTICK GLU 133 mg/dL High 74-106 [facility] Comment on above: Result Comment: JASON GEMENT OF PATIENT CARE PER NURSING PROTOCOL Performed By: #### L 501.080 ####[facility] [address] [place], [address] CBC W/Diff, Automatedon 02-2 Absolute Lymph 1.58 X10 3/uL Normal 0.83-4.51 [facility] Comment on above: Performed By: #### L 500.2500, L100.0100 ####[facility] [address] [place], [address] Absolute Neut 7.0 X10 3/uL Normal 2.0-7.7 [facility] Comment on above: Performed By: #### L 500.2500, L100.0100 ####[facility] [address] [place], [address] Basophils/100 WBC (Bld) 0.8 % Normal 0-1 [facility] Comment on above: Performed By: #### L 500.2500, L100.0100 ####[facility] [address] [place], [address] Eosinophils/100 WBC (Bld) 3.3 % Normal 0-5 [facility] Comment on above: Performed By: #### L 500.2500, L100.0100 ####[facility] [address] [place], [address] Erythrocyte distribution width (RBC) [Ratio] 14.9 % High 11.6-14.6 [facility] Comment on above: Performed By: #### L 500.2500, L100.0100 ####[facility] [address] [place], [address] Hematocrit (Bld) [Volume fraction] 26.0 % Low 37-47 [facility] Comment on above: Performed By: #### L 500.2500, L100.0100 ####[facility] [address] [place], [address] Hemoglobin (Bld) [Mass/Vol] 8.3 g/dL Low 12.0-15.0 [facility] Comment on above: Performed By: #### L 500.2500, L100.0100 ####[facility] [address] [place], [address] IG% 2.900 High 0.0-0.9 [facility] Comment on above: Result Comment: IG% - Immature Granulocytes (promyelocytes, myelocytes andmetamyelocytes) > 1% indicates that a LEFT SHIFT is Present. Performed By: #### L 500.2500, L100.0100 ####[facility] [address] [place], [address] Lymphocytes/100 WBC (Bld) 15.4 % Low 19-41 [facility] Comment on above: Performed By: #### L 500.2500, L100.0100 ####[facility] [address] [place], [address] MCH (RBC) [Entitic mass] 32.0 pg Normal 27.0-32.0 [facility] Comment on above: Performed By: #### L 500.2500, L100.0100 ####[facility] [address] [place], [address] MCHC (RBC) [Mass/Vol] 31.9 g/dL Low 32-36 [facility] Comment on above: Performed By: #### L 500.2500, L100.0100 ####[facility] [address] [place], [address] MCV (RBC) [Entitic vol] 100.4 fL High 81-99 [facility] Comment on above: Performed By: #### L 500.2500, L100.0100 ####[facility] [address] [place], [address] Monocytes/100 WBC (Bld) 9.1 % Normal 0-10 [facility] Comment on above: Performed By: #### L 500.2500, L100.0100 ####[facility] [address] [place], [address] Neutrophils/100 WBC (Bld) 68.5 % Normal 47-70 [facility] Comment on above: Performed By: #### L 500.2500, L100.0100 ####[facility] [address] [place], [address] Nucleated RBC (Bld) [#/Vol] 0 10*3/uL Normal 0-5 [facility] Comment on above: Performed By: #### L 500.2500, L100.0100 ####[facility] [address] [place], [address] Platelet mean volume (Bld) [Entitic vol] 9.3 fL Normal 6.2-12.0 [facility] Comment on above: Performed By: #### L 500.2500, L100.0100 ####[facility] [address] [place], [address] Platelets (Bld) [#/Vol] 372 10*3/uL Normal 150-450 [facility] Comment on above: Performed By: #### L 500.2500, L100.0100 ####[facility] [address] [place], [address] RBC (Bld) [#/Vol] 2.59 10*6/uL Low 4.2-5.4 [facility] Comment on above: Performed By: #### L 500.2500, L100.0100 ####[facility] [address] [place], [address] RDW SD 53.6 fl High 35.1-43.9 [facility] Comment on above: Performed By: #### L 500.2500, L100.0100 ####[facility] [address] [place], [address] WBC (Bld) [#/Vol] 10.3 10*3/uL Normal 4.4-11.0 [facility] Comment on above: Performed By: #### L 500.2500, L100.0100 ####[facility] [address] [place], [address] Bedside Glucoseon 05-10-2024 FINGERSTICK GLU 188 mg/dL High 74-106 [facility] Comment on above: Result Comment: JASON RODRIGUEZ OF PATIENT CARE PER NURSING PROTOCOL Performed By: #### L 501.080 ####[facility] [address] [place], [address] FINGERSTICK GLU 190 mg/dL High 74-106 [facility] Comment on above: Result Comment: JASON GEMENT OF PATIENT CARE PER NURSING PROTOCOL Performed By: #### L 501.080 ####[facility] [address] [place], [address] FINGERSTICK GLU 131 mg/dL High 74-106 [facility] Comment on above: Result Comment: JASON GEMENT OF PATIENT CARE PER NURSING PROTOCOL Performed By: #### L 501.080 ####[facility] [address] [place], [address] Basic Metabolic Profile (BMP )on 05-09-2024 BUN/CRE 27.8 RATIO High 10-20 [facility] Comment on above: Performed By: #### L 100.0100, L500.2500 ####[facility] [address] [place], [address] CA,Total 9.7 mg/dL Normal 8.5-10.1 [facility] Comment on above: Performed By: #### L 100.0100, L500.2500 ####[facility] [address] [place], [address] Chloride [Moles/Vol] 97 mmol/L Low 98-107 [facility] Comment on above: Performed By: #### L 100.0100, L500.2500 ####[facility] [address] [place], [address] CO2 [Moles/Vol] 25.0 mmol/L Normal 21.0-32.0 [facility] Comment on above: Performed By: #### L 100.0100, L500.2500 ####[facility] [address] [place], [address] Creatinine [Mass/Vol] 1.87 mg/dL High 0.55-1.02 [facility] Comment on above: Result Comment: The validity of the calculated GFR GFRAA in patients over70 years has not been determined. Clinical correlation isessential. Performed By: #### L 100.0100, L500.2500 ####[facility] [address] [place], [address] ECRCL 29.20 ml/min Normal [facility] Comment on above: Performed By: #### L 100.0100, L500.2500 ####[facility] [address] [place], [address] EST GFR - AA 33 mL/min Low >60 [facility] Comment on above: Result Comment: Afri can Citizen [place] GFR Calc Performed By: #### L 100.0100, L500.2500 ####[facility] [address] [place], [address] GAP 9 Normal 5-15 [facility] Comment on above: Performed By: #### L 100.0100, L500.2500 ####[facility] [address] [place], [address] GFR/1.73 sq M.predicted among non-blacks MDRD (S/P/Bld) [Vol rate/Area] 28 mL/min/{1.73_m2} Low >60 [facility] Comment on above: Result Comment: Non- GFR Calc Performed By: #### L 100.0100, L500.2500 ####[facility] [address] [place], [address] Glucose [Mass/Vol] 204 mg/dL High 74-106 [facility] Comment on above: Result Comment: Gluc ose result greater than or equal to 200 mg/dLsuggests DIABETES MELLITUS per A.D.A. criteria. Performed By: #### L 100.0100, L500.2500 ####[facility] [address] [place], [address] Potassium [Moles/Vol] 4.3 mmol/L Normal 3.5-5.1 [facility] Comment on above: Performed By: #### L 100.0100, L500.2500 ####[facility] [address] [place], [address] Sodium [Moles/Vol] 131 mmol/L Low 136-145 [facility] Comment on above: Performed By: #### L 100.0100, L500.2500 ####[facility] [address] [place], [address] Urea nitrogen [Mass/Vol] 52 mg/dL High 7-18 [facility] Comment on above: Performed By: #### L 100.0100, L500.2500 ####[facility] [address] [place], [address] Bedside Glucoseon 05-09-2024 FINGERSTICK GLU 221 mg/dL High 74-106 [facility] Comment on above: Result Comment: JASON GEMENT OF PATIENT CARE PER NURSING PROTOCOL Performed By: #### L 501.080 ####[facility] [address] [place], [address] FINGERSTICK GLU 192 mg/dL High 74-106 [facility] Comment on above: Result Comment: JASON GEMENT OF PATIENT CARE PER NURSING PROTOCOL Performed By: #### L 501.080 ####[facility] [address] [place], [address] FINGERSTICK GLU 109 mg/dL High 74-106 [facility] Comment on above: Result Comment: JASON GEMENT OF PATIENT CARE PER NURSING PROTOCOL Performed By: #### L 501.080 ####[facility] [address] [place], [address] CBC W/Diff, Automatedon 02-2 Absolute Lymph 1.57 X10 3/uL Normal 0.83-4.51 [facility] Comment on above: Performed By: #### L 100.0100, L500.2500 ####[facility] [address] [place], [address] Absolute Neut 7.3 X10 3/uL Normal 2.0-7.7 [facility] Comment on above: Performed By: #### L 100.0100, L500.2500 ####[facility] [address] [place], [address] Basophils/100 WBC (Bld) 0.5 % Normal 0-1 [facility] Comment on above: Performed By: #### L 100.0100, L500.2500 ####[facility] [address] [place], [address] Eosinophils/100 WBC (Bld) 2.7 % Normal 0-5 [facility] Comment on above: Performed By: #### L 100.0100, L500.2500 ####[facility] [address] [place], [address] Erythrocyte distribution width (RBC) [Ratio] 14.6 % Normal 11.6-14.6 [facility] Comment on above: Performed By: #### L 100.0100, L500.2500 ####[facility] [address] [place], [address] Hematocrit (Bld) [Volume fraction] 25.1 % Low 37-47 [facility] Comment on above: Performed By: #### L 100.0100, L500.2500 ####[facility] [address] [place], [address] Hemoglobin (Bld) [Mass/Vol] 8.3 g/dL Low 12.0-15.0 [facility] Comment on above: Performed By: #### L 100.0100, L500.2500 ####[facility] [address] [place], [address] IG% 3.000 High 0.0-0.9 [facility] Comment on above: Result Comment: IG% - Immature Granulocytes (promyelocytes, myelocytes andmetamyelocytes) > 1% indicates that a LEFT SHIFT is Present. Performed By: #### L 100.0100, L500.2500 ####[facility] [address] [place], [address] Lymphocytes/100 WBC (Bld) 15.2 % Low 19-41 [facility] Comment on above: Performed By: #### L 100.0100, L500.2500 ####[facility] [address] [place], [address] MCH (RBC) [Entitic mass] 32.3 pg High 27.0-32.0 [facility] Comment on above: Performed By: #### L 100.0100, L500.2500 ####[facility] [address] [place], [address] MCHC (RBC) [Mass/Vol] 33.1 g/dL Normal 32-36 [facility] Comment on above: Performed By: #### L 100.0100, L500.2500 ####[facility] [address] [place], [address] MCV (RBC) [Entitic vol] 97.7 fL Normal 81-99 [facility] Comment on above: Performed By: #### L 100.0100, L500.2500 ####[facility] [address] [place], [address] Monocytes/100 WBC (Bld) 7.9 % Normal 0-10 [facility] Comment on above: Performed By: #### L 100.0100, L500.2500 ####[facility] [address] [place], [address] Neutrophils/100 WBC (Bld) 70.7 % High 47-70 [facility] Comment on above: Performed By: #### L 100.0100, L500.2500 ####[facility] [address] [place], [address] Nucleated RBC (Bld) [#/Vol] 0 10*3/uL Normal 0-5 [facility] Comment on above: Performed By: #### L 100.0100, L500.2500 ####[facility] [address] [place], [address] Platelet mean volume (Bld) [Entitic vol] 9.0 fL Normal 6.2-12.0 [facility] Comment on above: Performed By: #### L 100.0100, L500.2500 ####[facility] [address] [place], [address] Platelets (Bld) [#/Vol] 342 10*3/uL Normal 150-450 [facility] Comment on above: Performed By: #### L 100.0100, L500.2500 ####[facility] [address] [place], [address] RBC (Bld) [#/Vol] 2.57 10*6/uL Low 4.2-5.4 [facility] Comment on above: Performed By: #### L 100.0100, L500.2500 ####[facility] [address] [place], [address] RDW SD 51.1 fl High 35.1-43.9 [facility] Comment on above: Performed By: #### L 100.0100, L500.2500 ####[facility] [address] [place], [address] WBC (Bld) [#/Vol] 10.3 10*3/uL Normal 4.4-11.0 [facility] Comment on above: Performed By: #### L 100.0100, L500.2500 ####[facility] [address] [place], [address] Bedside Glucoseon 05-08-2024 FINGERSTICK GLU 184 mg/dL High -106 [facility] Comment on above: Result Comment: JASON GEMENT OF PATIENT CARE PER NURSING PROTOCOL Performed By: #### L 501.080 ####[facility] [address] [place], [address] FINGERSTICK GLU 162 mg/dL High [address] [place] [address] Comment on above: Result Comment: JASON GEMENT OF PATIENT CARE PER NURSING PROTOCOL Performed By: #### L 501.080 ####[facility] [address] [place], [address] FINGERSTICK GLU 165 mg/dL High [address] [place] [address] Comment on above: Result Comment: JASON GEMENT OF PATIENT CARE PER NURSING PROTOCOL Performed By: #### L 501.080 ####[facility] [address] [place], [address] FINGERSTICK GLU 86 mg/dL Normal -[address] [place] [address] Comment on above: Result Comment: JASON GEMENT OF PATIENT CARE PER NURSING PROTOCOL Performed By: #### L 501.080 ####[facility] [address] [place], [address] Bedside Glucoseon 05-07-2024 FINGERSTICK GLU 181 mg/dL High [address] [place] [address] Comment on above: Result Comment: JASON GEMENT OF PATIENT CARE PER NURSING PROTOCOL Performed By: #### L 501.080 ####[facility] [address] [place], [address] FINGERSTICK GLU 200 mg/dL High [address] [place] [address] Comment on above: Result Comment: JASON GEMENT OF PATIENT CARE PER NURSING PROTOCOL Performed By: #### L 501.080 ####[facility] [address] [place], [address] FINGERSTICK GLU 184 mg/dL High [address] [place] [address] Comment on above: Result Comment: JASON GEMENT OF PATIENT CARE PER NURSING PROTOCOL Performed By: #### L 501.080 ####[facility] [address] [place], [address] FINGERSTICK GLU 124 mg/dL High 74-106 [facility] Comment on above: Result Comment: JASON GEMENT OF PATIENT CARE PER NURSING PROTOCOL Performed By: #### L 501.080 ####[facility] [address] [place], [address] Bedside Glucoseon 05-06-2024 FINGERSTICK GLU 116 mg/dL High 74-106 [facility] Comment on above: Result Comment: JASON GEMENT OF PATIENT CARE PER NURSING PROTOCOL Performed By: #### L 501.080 ####[facility] [address] [place], [address] FINGERSTICK GLU 148 mg/dL High 74-106 [facility] Comment on above: Result Comment: JASON GEMENT OF PATIENT CARE PER NURSING PROTOCOL Performed By: #### L 501.080 ####[facility] [address] [place], [address] FINGERSTICK GLU 232 mg/dL High 74-106 [facility] Comment on above: Result Comment: JASON GEMENT OF PATIENT CARE PER NURSING PROTOCOL Performed By: #### L 501.080 ####[facility] [address] [place], [address] FINGERSTICK GLU 185 mg/dL High 74-106 [facility] Comment on above: Result Comment: JASON GEMENT OF PATIENT CARE PER NURSING PROTOCOL Performed By: #### L 501.080 ####[facility] [address] [place], [address] [facility]) -------- GEORGINAVAL Gordon ([id number]) 1945 F Date Time Provider Department 05/06/24 TESSA BROCK [facility] During your visit today, we recorded the following information about you: Tessa Brock RPh 05/06/2024 2:17 PM Signed Called patient for scheduled pharmacy phone follow up; unable to reach after multiple attempts. Left with phone number to reschedule appointment. Tessa Brock, PharmD, BCACP Primary Care Clinical [employer] Allergies As of Date: 05/06/2024 Noted Allergy Reaction RYBELSUS (SEMAGLUTIDE) 07/10/2023 5 - Intolerance Comments: Uncontrollable indigestion LEVAQUIN (LEVOFLOXACIN) 12/29/2004 Comments: itching,diarrhea,dausea, burning skin SEASONAL ALLERGIES 08/19/2014 14 - Other: See Comments Comments: Sinus SULFA (SULFONAMIDE ANTIBIOTICS) 12/29/2004 Comments: rash and hives Date Reviewed: 04/08/2024 Reviewed by: Tessa Brock [facility] - Fully Assessed Reason for Visit: Missed Appointment [1304] Prescriptions as of 05/06/2024 - tirzepatide (MOUNJARO) 2.5 mg/0.5 mL pen injector Inject 2.5 mg subcutaneously one time a week. - furosemide (LASIX) 20 mg tablet Take 1 tablet by mouth once daily. Take an extra 20 mg tablet daily as needed - gabapentin (NEURONTIN) 300 mg capsule Take 1 capsule by mouth two times a day for 180 days. - simvastatin (ZOCOR) 40 mg tablet Take 1 tablet by mouth daily at bedtime. For cholesterol. - insulin glargine (LANTUS SOLOSTAR U-100 INSULIN) 100 unit/mL (3 mL) Inject 60 Units subcutaneously daily at bedtime. - Insulin [place], Disposable, 29 gauge x 1/2 Use once daily as directed. Dx E11.29 - venlafaxine ER (EFFEXOR XR) 75 mg 24 hr capsule Take 1 capsule by mouth once daily. - empagliflozin (JARDIANCE) 10 mg tablet Take 1 tablet by mouth once daily. Prescribed by ballistics teacher - calcitriol (ROCALTROL) 0.5 mcg capsule Take 0.5 mcg by mouth. - clotrimazole (LOTRIMIN) 1 % cream Apply to affected area. - lidocaine (SALONPAS) 4 % patch Apply 1 Patch as directed. - hydrALAZINE (APRESOLINE) 25 mg tablet Take 25 mg by mouth three times a day. - metoprolol succinate ER (TOPROL XL) 50 mg 24 hr tablet Take 1 tablet by mouth once daily. Per Dr. Yulia Antoine, cardiology. - lusqcfdiyyq-tzkboblkm-ii lanter (TRELEGY ELLIPTA) 100-62.5-25 mcg inhalation powder Inhale 1 Puff as instructed once daily. - docusate sodium (COLACE) 100 mg capsule Take 1 capsule by mouth as needed. - melatonin 5 mg tablet Take 2 tablets by mouth. - senna (SENOKOT) 8.6 mg tab Take 1 tablet by mouth as needed. - Vit C-Vit W-Sqvogt-QdBw-Lutein (PRESERVISION LUTEIN) 226 mg-200 unit -5 mg-0.8 mg cap Take 1 capsule by mouth once daily. - COMPOUNDED PRESCRIPTION Take 1 tablet by mouth twice daily. Plexus Bio-5 (Probiotic) - blood sugar diagnostic ([employer] CorporationTOUCH ULTRA TEST) test strip Test blood sugar(s) 2 times daily. - epoetin zari (PROCRIT,EPOGEN) 10,000 unit/mL injection Inject 10,000 Units subcutaneously q 4 WEEKS. 12,000 Units every two weeks. 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 Normal [facility] COVID 19 AG RAPID ([place])on 05-06-2024 SARS-CoV-2 (COVID-19) RNA ALY+probe Ql (Unsp spec) Normal [facility] Comment on above: Performed By: #### M 100.505 ####[facility] [address] [place], [address] Urine Cultureon 05-06-2024 URC Normal [facility] Comment on above: Performed By: #### M 100.2200, L400.0001 ####[facility] [address] [place], [address] Bedside Glucoseon 05-05-2024 FINGERSTICK GLU 210 mg/dL High [address] [place] [address] Comment on above: Result Comment: JASON GEMENT OF PATIENT CARE PER NURSING PROTOCOL Performed By: #### L 501.080 ####[facility] [address] [place], [address] FINGERSTICK GLU 202 mg/dL High [address] [place] [address] Comment on above: Result Comment: JASON GEMENT OF PATIENT CARE PER NURSING PROTOCOL Performed By: #### L 501.080 ####[facility] [address] [place], [address] FINGERSTICK GLU 290 mg/dL High [address] [place] [address] Comment on above: Result Comment: JASON GEMENT OF PATIENT CARE PER NURSING PROTOCOL Performed By: #### L 501.080 ####[facility] [address] [place], [address] FINGERSTICK GLU 218 mg/dL High [address] [place] [address] Comment on above: Result Comment: JASON GEMENT OF PATIENT CARE PER NURSING PROTOCOL Performed By: #### L 501.080 ####[facility] [address] [place], [address] Femur Min 2 Viewson 05-05-19 25 Femur Min 2 Views Normal [facility] Pelvis 1 or 2 Viewson 2024 Pelvis 1 or 2 Views Normal [facility] Basic Metabolic Profile (BMP )on 05-04-2024 BUN/CRE 26.8 RATIO High 10-20 [facility] Comment on above: Performed By: #### L 500.2500 ####[facility] [address] [place], [address] CA,Total 9.1 mg/dL Normal 8.5-10.1 [facility] Comment on above: Performed By: #### L 500.2500 ####[facility] [address] [place], [address] Chloride [Moles/Vol] 96 mmol/L Low 98-107 [facility] Comment on above: Performed By: #### L 500.2500 ####[facility] [address] [place], [address] CO2 [Moles/Vol] 25.0 mmol/L Normal 21.0-32.0 [facility] Comment on above: Performed By: #### L 500.2500 ####[facility] [address] [place], [address] Creatinine [Mass/Vol] 1.94 mg/dL High 0.55-1.02 [facility] Comment on above: Result Comment: The validity of the calculated GFR GFRAA in patients over70 years has not been determined. Clinical correlation isessential. Performed By: #### L 500.2500 ####[facility] [address] [place], [address] ECRCL 28.30 ml/min Normal [facility] Comment on above: Performed By: #### L 500.2500 ####[facility] [address] [place], [address] EST GFR - AA 32 mL/min Low >60 [facility] Comment on above: Result Comment: Afri can [place] GFR Calc Performed By: #### L 500.2500 ####[facility] [address] [place], [address] GAP 7 Normal 5-15 [facility] Comment on above: Performed By: #### L 500.2500 ####[facility] [address] [place], [address] GFR/1.73 sq M.predicted among non-blacks MDRD (S/P/Bld) [Vol rate/Area] 26 mL/min/{1.73_m2} Low >60 [facility] Comment on above: Result Comment: Non- GFR Calc Performed By: #### L 500.2500 ####[facility] [address] [place], [address] Glucose [Mass/Vol] 194 mg/dL High 74-106 [facility] Comment on above: Result Comment: Fast ing Glucose result greater than or equal to 126 mg/dLsuggests DIABETES MELLITUS per A.D.A. criteria. Performed By: #### L 500.2500 ####[facility] [address] [place], [address] Potassium [Moles/Vol] 5.0 mmol/L Normal 3.5-5.1 [facility] Comment on above: Performed By: #### L 500.2500 ####[facility] [address] [place], [address] Sodium [Moles/Vol] 128 mmol/L Low 136-145 [facility] Comment on above: Performed By: #### L 500.2500 ####[facility] [address] [place], [address] Urea nitrogen [Mass/Vol] 52 mg/dL High 7-18 [facility] Comment on above: Performed By: #### L 500.2500 ####[facility] [address] [place], [address] Bedside Glucoseon 05-04-2024 FINGERSTICK GLU 291 mg/dL High 74-106 [facility] Comment on above: Result Comment: JASON RODRIGUEZ OF PATIENT CARE PER NURSING PROTOCOL Performed By: #### L 501.080 ####[facility] [address] [place], [address] FINGERSTICK GLU 232 mg/dL High 74-106 [facility] Comment on above: Result Comment: JASON GEMENT OF PATIENT CARE PER NURSING PROTOCOL Performed By: #### L 501.080 ####[facility] [address] [place], [address] FINGERSTICK GLU 258 mg/dL High 74-106 [facility] Comment on above: Result Comment: JASON GEMENT OF PATIENT CARE PER NURSING PROTOCOL Performed By: #### L 501.080 ####[facility] [address] [place], [address] FINGERSTICK GLU 258 mg/dL High 74-106 [facility] Comment on above: Result Comment: JASON GEMENT OF PATIENT CARE PER NURSING PROTOCOL Performed By: #### L 501.080 ####[facility] [address] [place], [address] FINGERSTICK GLU 197 mg/dL High 74-106 [facility] Comment on above: Result Comment: JASON GEMENT OF PATIENT CARE PER NURSING PROTOCOL Performed By: #### L 501.080 ####[facility] [address] [place], [address] Urinalysis, Completeon 05-04 BACTERIA 1+ /hpf Normal None Seen [facility] Comment on above: Order Comment: COLLE CTOR TO SPECIFY Performed By: #### M 100.2200, L400.0001 ####[facility] [address] [place], [address] RBC 0-5 SEEN Normal 0-5 [facility] Comment on above: Order Comment: COLLE CTOR TO SPECIFY Performed By: #### M 100.2200, L400.0001 ####[facility] [address] [place], [address] EPI,SQUAMOUS 0-5 SEEN Normal 5-10 [facility] Comment on above: Order Comment: COLLE CTOR TO SPECIFY Performed By: #### M 100.2200, L400.0001 ####[facility] [address] [place], [address] Mucus Ql (Urine sed) 0 SEEN Normal [facility] Comment on above: Order Comment: COLLE CTOR TO SPECIFY Performed By: #### M 100.2200, L400.0001 ####[facility] [address] [place], [address] WBC 0 SEEN Normal 0-5 [facility] Comment on above: Order Comment: COLLE CTOR TO SPECIFY Performed By: #### M 100.2200, L400.0001 ####[facility] [address] [place], [address] Basic Metabolic Profile (BMP )on 05-03-2024 BUN/CRE 23.6 RATIO High 10-20 [facility] Comment on above: Performed By: #### L 100.0100, L500.2500 ####[facility] [address] [place], [address] CA,Total 9.5 mg/dL Normal 8.5-10.1 [facility] Comment on above: Performed By: #### L 100.0100, L500.2500 ####[facility] [address] [place], [address] Chloride [Moles/Vol] 97 mmol/L Low 98-107 [facility] Comment on above: Performed By: #### L 100.0100, L500.2500 ####[facility] [address] [place], [address] CO2 [Moles/Vol] 25.0 mmol/L Normal 21.0-32.0 [facility] Comment on above: Performed By: #### L 100.0100, L500.2500 ####[facility] [address] [place], [address] Creatinine [Mass/Vol] 1.99 mg/dL High 0.55-1.02 [facility] Comment on above: Result Comment: The validity of the calculated GFR GFRAA in patients over70 years has not been determined. Clinical correlation isessential. Performed By: #### L 100.0100, L500.2500 ####[facility] [address] [place], [address] ECRCL 27.59 ml/min Normal [facility] Comment on above: Performed By: #### L 100.0100, L500.2500 ####[facility] [address] [place], [address] EST GFR - AA 31 mL/min Low >60 [facility] Comment on above: Result Comment: Afri can [place] GFR Calc Performed By: #### L 100.0100, L500.2500 ####[facility] [address] [place], [address] GAP 9 Normal 5-15 [facility] Comment on above: Performed By: #### L 100.0100, L500.2500 ####[facility] [address] [place], [address] GFR/1.73 sq M.predicted among non-blacks MDRD (S/P/Bld) [Vol rate/Area] 26 mL/min/{1.73_m2} Low >60 [facility] Comment on above: Result Comment: Non- GFR Calc Performed By: #### L 100.0100, L500.2500 ####[facility] [address] [place], [address] Glucose [Mass/Vol] 206 mg/dL High 74-106 [facility] Comment on above: Result Comment: Gluc ose result greater than or equal to 200 mg/dLsuggests DIABETES MELLITUS per A.D.A. criteria. Performed By: #### L 100.0100, L500.2500 ####[facility] [address] [place], [address] Potassium [Moles/Vol] 4.9 mmol/L Normal 3.5-5.1 [facility] Comment on above: Performed By: #### L 100.0100, L500.2500 ####[facility] [address] [place], [address] Sodium [Moles/Vol] 131 mmol/L Low 136-145 [facility] Comment on above: Performed By: #### L 100.0100, L500.2500 ####[facility] [address] [place], [address] Urea nitrogen [Mass/Vol] 47 mg/dL High 7-18 [facility] Comment on above: Performed By: #### L 100.0100, L500.2500 ####[facility] [address] [place], [address] Bedside Glucoseon 05-03-2024 FINGERSTICK GLU 274 mg/dL High 74-106 [facility] Comment on above: Result Comment: JASON GEMENT OF PATIENT CARE PER NURSING PROTOCOL Performed By: #### L 501.080 ####[facility] [address] [place], [address] FINGERSTICK GLU 281 mg/dL High 74-106 [facility] Comment on above: Result Comment: JASON GEMENT OF PATIENT CARE PER NURSING PROTOCOL Performed By: #### L 501.080 ####[facility] [address] [place], [address] FINGERSTICK GLU 277 mg/dL High 74-106 [facility] Comment on above: Result Comment: JASON GEMENT OF PATIENT CARE PER NURSING PROTOCOL Performed By: #### L 501.080 ####[facility] [address] [place], [address] FINGERSTICK GLU 167 mg/dL High 74-106 [facility] Comment on above: Result Comment: JASON GEMENT OF PATIENT CARE PER NURSING PROTOCOL Performed By: #### L 501.080 ####[facility] [address] [place], [address] CBC W/Diff, Automatedon - Absolute Lymph 1.71 X10 3/uL Normal 0.83-4.51 [facility] Comment on above: Performed By: #### L 100.0100, L500.2500 ####[facility] [address] [place], [address] Absolute Neut 9.5 X10 3/uL High 2.0-7.7 [facility] Comment on above: Performed By: #### L 100.0100, L500.2500 ####[facility] [address] [place], [address] Basophils/100 WBC (Bld) 0.5 % Normal 0-1 [facility] Comment on above: Performed By: #### L 100.0100, L500.2500 ####[facility] [address] [place], [address] Eosinophils/100 WBC (Bld) 1.6 % Normal 0-5 [facility] Comment on above: Performed By: #### L 100.0100, L500.2500 ####[facility] [address] [place], [address] Erythrocyte distribution width (RBC) [Ratio] 14.1 % Normal 11.6-14.6 [facility] Comment on above: Performed By: #### L 100.0100, L500.2500 ####[facility] [address] [place], [address] Hematocrit (Bld) [Volume fraction] 26.6 % Low 37-47 [facility] Comment on above: Performed By: #### L 100.0100, L500.2500 ####[facility] [address] [place], [address] Hemoglobin (Bld) [Mass/Vol] 8.6 g/dL Low 12.0-15.0 [facility] Comment on above: Performed By: #### L 100.0100, L500.2500 ####[facility] [address] [place], [address] IG% 1.700 High 0.0-0.9 [facility] Comment on above: Result Comment: IG% - Immature Granulocytes (promyelocytes, myelocytes andmetamyelocytes) > 1% indicates that a LEFT SHIFT is Present. Performed By: #### L 100.0100, L500.2500 ####[facility] [address] [place], [address] Lymphocytes/100 WBC (Bld) 13.3 % Low 19-41 [facility] Comment on above: Performed By: #### L 100.0100, L500.2500 ####[facility] [address] [place], [address] MCH (RBC) [Entitic mass] 31.9 pg Normal 27.0-32.0 [facility] Comment on above: Performed By: #### L 100.0100, L500.2500 ####[facility] [address] [place], [address] MCHC (RBC) [Mass/Vol] 32.3 g/dL Normal 32-36 [facility] Comment on above: Performed By: #### L 100.0100, L500.2500 ####[facility] [address] [place], [address] MCV (RBC) [Entitic vol] 98.5 fL Normal 81-99 [facility] Comment on above: Performed By: #### L 100.0100, L500.2500 ####[facility] [address] [place], [address] Monocytes/100 WBC (Bld) 8.7 % Normal 0-10 [facility] Comment on above: Performed By: #### L 100.0100, L500.2500 ####[facility] [address] [place], [address] Neutrophils/100 WBC (Bld) 74.2 % High 47-70 [facility] Comment on above: Performed By: #### L 100.0100, L500.2500 ####[facility] [address] [place], [address] Nucleated RBC (Bld) [#/Vol] 0 10*3/uL Normal 0-5 [facility] Comment on above: Performed By: #### L 100.0100, L500.2500 ####[facility] [address] [place], [address] Platelet mean volume (Bld) [Entitic vol] 9.5 fL Normal 6.2-12.0 [facility] Comment on above: Performed By: #### L 100.0100, L500.2500 ####[facility] [address] [place], [address] Platelets (Bld) [#/Vol] 257 10*3/uL Normal 150-450 [facility] Comment on above: Performed By: #### L 100.0100, L500.2500 ####[facility] [address] [place], [address] RBC (Bld) [#/Vol] 2.70 10*6/uL Low 4.2-5.4 [facility] Comment on above: Performed By: #### L 100.0100, L500.2500 ####[facility] [address] [place], [address] RDW SD 49.9 fl High 35.1-43.9 [facility] Comment on above: Performed By: #### L 100.0100, L500.2500 ####[facility] [address] [place], [address] WBC (Bld) [#/Vol] 12.8 10*3/uL High 4.4-11.0 [facility] Comment on above: Performed By: #### L 100.0100, L500.2500 ####[facility] [address] [place], [address] Basic Metabolic Profile (BMP )on 05-02-2024 BUN/CRE 24.4 RATIO High 10-20 [facility] Comment on above: Performed By: #### L 100.0100, L500.2500 ####[facility] [address] [place], [address] CA,Total 9.6 mg/dL Normal 8.5-10.1 [facility] Comment on above: Performed By: #### L 100.0100, L500.2500 ####[facility] [address] [place], [address] Chloride [Moles/Vol] 99 mmol/L Normal 98-107 [facility] Comment on above: Performed By: #### L 100.0100, L500.2500 ####[facility] [address] [place], [address] CO2 [Moles/Vol] 25.0 mmol/L Normal 21.0-32.0 [facility] Comment on above: Performed By: #### L 100.0100, L500.2500 ####[facility] [address] [place], [address] Creatinine [Mass/Vol] 2.05 mg/dL High 0.55-1.02 [facility] Comment on above: Result Comment: The validity of the calculated GFR GFRAA in patients over70 years has not been determined. Clinical correlation isessential. Performed By: #### L 100.0100, L500.2500 ####[facility] [address] [place], [address] ECRCL 27.37 ml/min Normal [facility] Comment on above: Performed By: #### L 100.0100, L500.2500 ####[facility] [address] [place], [address] EST GFR - AA 30 mL/min Low >60 [facility] Comment on above: Result Comment: Afri can Citizen [place] GFR Calc Performed By: #### L 100.0100, L500.2500 ####[facility] [address] [place], [address] GAP 7 Normal 5-15 [facility] Comment on above: Performed By: #### L 100.0100, L500.2500 ####[facility] [address] [place], [address] GFR/1.73 sq M.predicted among non-blacks MDRD (S/P/Bld) [Vol rate/Area] 25 mL/min/{1.73_m2} Low >60 [facility] Comment on above: Result Comment: Non- GFR Calc Performed By: #### L 100.0100, L500.2500 ####[facility] [address] [place], [address] Glucose [Mass/Vol] 255 mg/dL High 74-106 [facility] Comment on above: Result Comment: Gluc ose result greater than or equal to 200 mg/dLsuggests DIABETES MELLITUS per A.D.A. criteria. Performed By: #### L 100.0100, L500.2500 ####[facility] [address] [place], [address] Potassium [Moles/Vol] 4.9 mmol/L Normal 3.5-5.1 [facility] Comment on above: Performed By: #### L 100.0100, L500.2500 ####[facility] [address] [place], [address] Sodium [Moles/Vol] 132 mmol/L Low 136-145 [facility] Comment on above: Performed By: #### L 100.0100, L500.2500 ####[facility] [address] [place], [address] Urea nitrogen [Mass/Vol] 50 mg/dL High 7-18 [facility] Comment on above: Performed By: #### L 100.0100, L500.2500 ####[facility] [address] [place], [address] Bedside Glucoseon 05-02-2024 FINGERSTICK GLU 150 mg/dL High 74-106 [facility] Comment on above: Result Comment: AJSON GEMENT OF PATIENT CARE PER NURSING PROTOCOL Performed By: #### L 501.080 ####[facility] [address] [place], [address] FINGERSTICK GLU 150 mg/dL High 74-106 [facility] Comment on above: Result Comment: JASON GEMENT OF PATIENT CARE PER NURSING PROTOCOL Performed By: #### L 501.080 ####[facility] [address] [place], [address] FINGERSTICK GLU 176 mg/dL High 74-106 [facility] Comment on above: Result Comment: JASON GEMENT OF PATIENT CARE PER NURSING PROTOCOL Performed By: #### L 501.080 ####[facility] [address] [place], [address] FINGERSTICK GLU 212 mg/dL High 74-106 [facility] Comment on above: Result Comment: JASON GEMENT OF PATIENT CARE PER NURSING PROTOCOL Performed By: #### L 501.080 ####[facility] [address] [place], [address] CBC W/Diff, Automatedon 02- Absolute Lymph 1.50 X10 3/uL Normal 0.83-4.51 [facility] Comment on above: Performed By: #### L 100.0100, L500.2500 ####[facility] [address] [place], [address] Absolute Neut 8.3 X10 3/uL High 2.0-7.7 [facility] Comment on above: Performed By: #### L 100.0100, L500.2500 ####[facility] [address] [place], [address] Basophils/100 WBC (Bld) 0.4 % Normal 0-1 [facility] Comment on above: Performed By: #### L 100.0100, L500.2500 ####[facility] [address] [place], [address] Eosinophils/100 WBC (Bld) 1.6 % Normal 0-5 [facility] Comment on above: Performed By: #### L 100.0100, L500.2500 ####[facility] [address] [place], [address] Erythrocyte distribution width (RBC) [Ratio] 13.8 % Normal 11.6-14.6 [facility] Comment on above: Performed By: #### L 100.0100, L500.2500 ####[facility] [address] [place], [address] Hematocrit (Bld) [Volume fraction] 25.2 % Low 37-47 [facility] Comment on above: Performed By: #### L 100.0100, L500.2500 ####[facility] [address] [place], [address] Hemoglobin (Bld) [Mass/Vol] 8.1 g/dL Low 12.0-15.0 [facility] Comment on above: Performed By: #### L 100.0100, L500.2500 ####[facility] [address] [place], [address] IG% 1.300 High 0.0-0.9 [facility] Comment on above: Result Comment: IG% - Immature Granulocytes (promyelocytes, myelocytes andmetamyelocytes) > 1% indicates that a LEFT SHIFT is Present. Performed By: #### L 100.0100, L500.2500 ####[facility] [address] [place], [address] Lymphocytes/100 WBC (Bld) 13.4 % Low 19-41 [facility] Comment on above: Performed By: #### L 100.0100, L500.2500 ####[facility] [address] [place], [address] MCH (RBC) [Entitic mass] 31.6 pg Normal 27.0-32.0 [facility] Comment on above: Performed By: #### L 100.0100, L500.2500 ####[facility] [address] [place], [address] MCHC (RBC) [Mass/Vol] 32.1 g/dL Normal 32-36 [facility] Comment on above: Performed By: #### L 100.0100, L500.2500 ####[facility] [address] [place], [address] MCV (RBC) [Entitic vol] 98.4 fL Normal 81-99 [facility] Comment on above: Performed By: #### L 100.0100, L500.2500 ####[facility] [address] [place], [address] Monocytes/100 WBC (Bld) 8.5 % Normal 0-10 [facility] Comment on above: Performed By: #### L 100.0100, L500.2500 ####[facility] [address] [place], [address] Neutrophils/100 WBC (Bld) 74.8 % High 47-70 [facility] Comment on above: Performed By: #### L 100.0100, L500.2500 ####[facility] [address] [place], [address] Nucleated RBC (Bld) [#/Vol] 0.2 10*3/uL Normal 0-5 [facility] Comment on above: Performed By: #### L 100.0100, L500.2500 ####[facility] [address] [place], [address] Platelet mean volume (Bld) [Entitic vol] 9.5 fL Normal 6.2-12.0 [facility] Comment on above: Performed By: #### L 100.0100, L500.2500 ####[facility] [address] [place], [address] Platelets (Bld) [#/Vol] 207 10*3/uL Normal 150-450 [facility] Comment on above: Performed By: #### L 100.0100, L500.2500 ####[facility] [address] [place], [address] RBC (Bld) [#/Vol] 2.56 10*6/uL Low 4.2-5.4 [facility] Comment on above: Performed By: #### L 100.0100, L500.2500 ####[facility] [address] [place], [address] RDW SD 49.6 fl High 35.1-43.9 [facility] Comment on above: Performed By: #### L 100.0100, L500.2500 ####[facility] [address] [place], [address] WBC (Bld) [#/Vol] 11.2 10*3/uL High 4.4-11.0 [facility] Comment on above: Performed By: #### L 100.0100, L500.2500 ####[facility] [address] [place], [address] Basic Metabolic Profile (BMP )on 02-14-2025 BUN/CRE 19.9 RATIO Normal 10-20 [facility] Comment on above: Performed By: #### L 100.0100, L500.2500 ####[facility] [address] [place], [address] CA,Total 9.8 mg/dL Normal 8.5-10.1 [facility] Comment on above: Performed By: #### L 100.0100, L500.2500 ####[facility] [address] [place], [address] Chloride [Moles/Vol] 95 mmol/L Low 98-107 [facility] Comment on above: Performed By: #### L 100.0100, L500.2500 ####[facility] [address] [place], [address] CO2 [Moles/Vol] 25.0 mmol/L Normal 21.0-32.0 [facility] Comment on above: Performed By: #### L 100.0100, L500.2500 ####[facility] [address] [place], [address] Creatinine [Mass/Vol] 2.41 mg/dL High 0.55-1.02 [facility] Comment on above: Result Comment: The validity of the calculated GFR GFRAA in patients over70 years has not been determined. Clinical correlation isessential. Performed By: #### L 100.0100, L500.2500 ####[facility] [address] [place], [address] ECRCL 23.28 ml/min Normal [facility] Comment on above: Performed By: #### L 100.0100, L500.2500 ####[facility] [address] [place], [address] EST GFR - AA 25 mL/min Low >60 [facility] Comment on above: Result Comment: Afri can Citizen [place] GFR Calc Performed By: #### L 100.0100, L500.2500 ####[facility] [address] [place], [address] GAP 8 Normal 5-15 [facility] Comment on above: Performed By: #### L 100.0100, L500.2500 ####[facility] [address] [place], [address] GFR/1.73 sq M.predicted among non-blacks MDRD (S/P/Bld) [Vol rate/Area] 21 mL/min/{1.73_m2} Low >60 [facility] Comment on above: Result Comment: Non- GFR Calc Performed By: #### L 100.0100, L500.2500 ####[facility] [address] [place], [address] Glucose [Mass/Vol] 266 mg/dL High 74-106 [facility] Comment on above: Result Comment: Gluc ose result greater than or equal to 200 mg/dLsuggests DIABETES MELLITUS per A.D.A. criteria. Performed By: #### L 100.0100, L500.2500 ####[facility] [address] [place], [address] Potassium [Moles/Vol] 5.3 mmol/L High 3.5-5.1 [facility] Comment on above: Performed By: #### L 100.0100, L500.2500 ####[facility] [address] [place], [address] Sodium [Moles/Vol] 128 mmol/L Low 136-145 [facility] Comment on above: Performed By: #### L 100.0100, L500.2500 ####[facility] [address] [place], [address] Urea nitrogen [Mass/Vol] 48 mg/dL High 7-18 [facility] Comment on above: Performed By: #### L 100.0100, L500.2500 ####[facility] [address] [place], [address] Bedside Glucoseon 05-01-2024 FINGERSTICK GLU 178 mg/dL High [address] [place] [address] Comment on above: Result Comment: JASON GEMENT OF PATIENT CARE PER NURSING PROTOCOL Performed By: #### L 501.080 ####[facility] [address] [place], [address] FINGERSTICK GLU 325 mg/dL High [address] [place] [address] Comment on above: Result Comment: JASON GEMENT OF PATIENT CARE PER NURSING PROTOCOL Performed By: #### L 501.080 ####[facility] [address] [place], [address] FINGERSTICK GLU 375 mg/dL High [address] [place] [address] Comment on above: Result Comment: JASON GEMENT OF PATIENT CARE PER NURSING PROTOCOL Performed By: #### L 501.080 ####[facility] [address] [place], [address] FINGERSTICK GLU 274 mg/dL High [address] [place] [address] Comment on above: Result Comment: JASON GEMENT OF PATIENT CARE PER NURSING PROTOCOL Performed By: #### L 501.080 ####[facility] [address] [place], [address] CBC W/Diff, Automatedon 04-18 Absolute Lymph 1.17 X10 3/uL Normal 0.83-4.51 [facility] Comment on above: Performed By: #### L 100.0100, L500.2500 ####[facility] [address] [place], [address] Absolute Neut 10.2 X10 3/uL High 2.0-7.7 [facility] Comment on above: Performed By: #### L 100.0100, L500.2500 ####[facility] [address] [place], [address] Basophils/100 WBC (Bld) 0.2 % Normal 0-1 [facility] Comment on above: Performed By: #### L 100.0100, L500.2500 ####[facility] [address] [place], [address] Eosinophils/100 WBC (Bld) 1.3 % Normal 0-5 [facility] Comment on above: Performed By: #### L 100.0100, L500.2500 ####[facility] [address] [place], [address] Erythrocyte distribution width (RBC) [Ratio] 13.9 % Normal 11.6-14.6 [facility] Comment on above: Performed By: #### L 100.0100, L500.2500 ####[facility] [address] [place], [address] Hematocrit (Bld) [Volume fraction] 27.6 % Low 37-47 [facility] Comment on above: Performed By: #### L 100.0100, L500.2500 ####[facility] [address] [place], [address] Hemoglobin (Bld) [Mass/Vol] 8.8 g/dL Low 12.0-15.0 [facility] Comment on above: Performed By: #### L 100.0100, L500.2500 ####[facility] [address] [place], [address] IG% 0.900 Normal 0.0-0.9 [facility] Comment on above: Result Comment: IG% - Immature Granulocytes (promyelocytes, myelocytes andmetamyelocytes) > 1% indicates that a LEFT SHIFT is Present. Performed By: #### L 100.0100, L500.2500 ####[facility] [address] [place], [address] Lymphocytes/100 WBC (Bld) 9.3 % Low 19-41 [facility] Comment on above: Performed By: #### L 100.0100, L500.2500 ####[facility] [address] [place], [address] MCH (RBC) [Entitic mass] 31.5 pg Normal 27.0-32.0 [facility] Comment on above: Performed By: #### L 100.0100, L500.2500 ####[facility] [address] [place], [address] MCHC (RBC) [Mass/Vol] 31.9 g/dL Low 32-36 [facility] Comment on above: Performed By: #### L 100.0100, L500.2500 ####[facility] [address] [place], [address] MCV (RBC) [Entitic vol] 98.9 fL Normal 81-99 [facility] Comment on above: Performed By: #### L 100.0100, L500.2500 ####[facility] [address] [place], [address] Monocytes/100 WBC (Bld) 6.8 % Normal 0-10 [facility] Comment on above: Performed By: #### L 100.0100, L500.2500 ####[facility] [address] [place], [address] Neutrophils/100 WBC (Bld) 81.5 % High 47-70 [facility] Comment on above: Performed By: #### L 100.0100, L500.2500 ####[facility] [address] [place], [address] Nucleated RBC (Bld) [#/Vol] 0 10*3/uL Normal 0-5 [facility] Comment on above: Performed By: #### L 100.0100, L500.2500 ####[facility] [address] [place], [address] Platelet mean volume (Bld) [Entitic vol] 9.7 fL Normal 6.2-12.0 [facility] Comment on above: Performed By: #### L 100.0100, L500.2500 ####[facility] [address] [place], [address] Platelets (Bld) [#/Vol] 211 10*3/uL Normal 150-450 [facility] Comment on above: Performed By: #### L 100.0100, L500.2500 ####[facility] [address] [place], [address] RBC (Bld) [#/Vol] 2.79 10*6/uL Low 4.2-5.4 [facility] Comment on above: Performed By: #### L 100.0100, L500.2500 ####[facility] [address] [place], [address] RDW SD 50.8 fl High 35.1-43.9 [facility] Comment on above: Performed By: #### L 100.0100, L500.2500 ####[facility] [address] [place], [address] WBC (Bld) [#/Vol] 12.5 10*3/uL High 4.4-11.0 [facility] Comment on above: Performed By: #### L 100.0100, L500.2500 ####[facility] [address] [place], [address] Basic Metabolic Profile (BMP )on 04-30-2024 BUN/CRE 20.8 RATIO High 10-20 [facility] Comment on above: Performed By: #### L 100.0100, L500.2500 ####[facility] [address] [place], [address] CA,Total 10.1 mg/dL Normal 8.5-10.1 [facility] Comment on above: Performed By: #### L 100.0100, L500.2500 ####[facility] [address] [place], [address] Chloride [Moles/Vol] 97 mmol/L Low 98-107 [facility] Comment on above: Performed By: #### L 100.0100, L500.2500 ####[facility] [address] [place], [address] CO2 [Moles/Vol] 25.0 mmol/L Normal 21.0-32.0 [facility] Comment on above: Performed By: #### L 100.0100, L500.2500 ####[facility] [address] [place], [address] Creatinine [Mass/Vol] 2.36 mg/dL High 0.55-1.02 [facility] Comment on above: Result Comment: The validity of the calculated GFR GFRAA in patients over70 years has not been determined. Clinical correlation isessential. Performed By: #### L 100.0100, L500.2500 ####[facility] [address] [place], [address] ECRCL 23.77 ml/min Normal [facility] Comment on above: Performed By: #### L 100.0100, L500.2500 ####[facility] [address] [place], [address] EST GFR - AA 26 mL/min Low >60 [facility] Comment on above: Result Comment: Afri can Citizen [place] GFR Calc Performed By: #### L 100.0100, L500.2500 ####[facility] [address] [place], [address] GAP 7 Normal 5-15 [facility] Comment on above: Performed By: #### L 100.0100, L500.2500 ####[facility] [address] [place], [address] GFR/1.73 sq M.predicted among non-blacks MDRD (S/P/Bld) [Vol rate/Area] 21 mL/min/{1.73_m2} Low >60 [facility] Comment on above: Result Comment: Non- GFR Calc Performed By: #### L 100.0100, L500.2500 ####[facility] [address] [place], [address] Glucose [Mass/Vol] 202 mg/dL High 74-106 [facility] Comment on above: Result Comment: Gluc ose result greater than or equal to 200 mg/dLsuggests DIABETES MELLITUS per A.D.A. criteria. Performed By: #### L 100.0100, L500.2500 ####[facility] [address] [place], [address] Potassium [Moles/Vol] 5.1 mmol/L Normal 3.5-5.1 [facility] Comment on above: Performed By: #### L 100.0100, L500.2500 ####[facility] [address] [place], [address] Sodium [Moles/Vol] 130 mmol/L Low 136-145 [facility] Comment on above: Performed By: #### L 100.0100, L500.2500 ####[facility] [address] [place], [address] Urea nitrogen [Mass/Vol] 49 mg/dL High 7-18 [facility] Comment on above: Performed By: #### L 100.0100, L500.2500 ####[facility] [address] [place], [address] Bedside Glucoseon 04-30-2024 FINGERSTICK GLU 289 mg/dL High 74-106 [facility] Comment on above: Result Comment: JASON RODRIGUEZ OF PATIENT CARE PER NURSING PROTOCOL Performed By: #### L 501.080 ####[facility] [address] [place], [address] FINGERSTICK GLU 284 mg/dL High 74-106 [facility] Comment on above: Result Comment: JASON GEMENT OF PATIENT CARE PER NURSING PROTOCOL Performed By: #### L 501.080 ####[facility] [address] [place], [address] FINGERSTICK GLU 271 mg/dL High 74-106 [facility] Comment on above: Result Comment: JASON GEMENT OF PATIENT CARE PER NURSING PROTOCOL Performed By: #### L 501.080 ####[facility] [address] [place], [address] FINGERSTICK GLU 207 mg/dL High -106 [facility] Comment on above: Result Comment: JASON GEMENT OF PATIENT CARE PER NURSING PROTOCOL Performed By: #### L 501.080 ####[facility] [address] [place], [address] FINGERSTICK GLU 217 mg/dL High [address] [place] [address] Comment on above: Result Comment: JASON GEMENT OF PATIENT CARE PER NURSING PROTOCOL Performed By: #### L 501.080 ####[facility] [address] [place], [address] CBC W/Diff, Automatedon 02- Absolute Lymph 1.54 X10 3/uL Normal 0.83-4.51 [facility] Comment on above: Order Comment: REDRA W. PREVIOUS SPECIMEN REJECTED DUE TOQNS. 04/30/2424 Cony Roberts. Performed By: #### L 100.0100 ####[facility] [address] [place], [address] Absolute Neut 7.7 X10 3/uL Normal 2.0-7.7 [facility] Comment on above: Order Comment: REDRA W. PREVIOUS SPECIMEN REJECTED DUE TOQNS. 04/30/2424 Cony Roberts. Performed By: #### L 100.0100 ####[facility] [address] [place], [address] Basophils/100 WBC (Bld) 0.4 % Normal 0-1 [facility] Comment on above: Order Comment: REDRA W. PREVIOUS SPECIMEN REJECTED DUE TOQNS. 04/30/24723 Cony Roberts. Performed By: #### L 100.0100 ####[facility] [address] [place], [address] Eosinophils/100 WBC (Bld) 0.5 % Normal 0-5 [facility] Comment on above: Order Comment: REDRA W. PREVIOUS SPECIMEN REJECTED DUE TOQNS. 04/30/24723 Cony Roberts. Performed By: #### L 100.0100 ####[facility] [address] [place], [address] Erythrocyte distribution width (RBC) [Ratio] 13.9 % Normal 11.6-14.6 [facility] Comment on above: Order Comment: REDRA W. PREVIOUS SPECIMEN REJECTED DUE TOQNS. 04/30/24723 Cony Roberts. Performed By: #### L 100.0100 ####[facility] [address] [place], [address] Hematocrit (Bld) [Volume fraction] 27.2 % Low 37-47 [facility] Comment on above: Order Comment: REDRA W. PREVIOUS SPECIMEN REJECTED DUE TOQNS. 04/30/24723 Cony Roberts. Performed By: #### L 100.0100 ####[facility] [address] [place], [address] Hemoglobin (Bld) [Mass/Vol] 9.0 g/dL Low 12.0-15.0 [facility] Comment on above: Order Comment: REDRA W. PREVIOUS SPECIMEN REJECTED DUE TOQNS. 04/30/24723 Cony Roberts. Performed By: #### L 100.0100 ####[facility] [address] [place], [address] IG% 0.600 Normal 0.0-0.9 [facility] Comment on above: Order Comment: REDRA W. PREVIOUS SPECIMEN REJECTED DUE TOQNS. 04/30/24723 Cony Roberts. Result Comment: IG% - Immature Granulocytes (promyelocytes, myelocytes andmetamyelocytes) > 1% indicates that a LEFT SHIFT is Present. Performed By: #### L 100.0100 ####[facility] [address] [place], [address] Lymphocytes/100 WBC (Bld) 14.7 % Low 19-41 [facility] Comment on above: Order Comment: REDRA W. PREVIOUS SPECIMEN REJECTED DUE TOQNS. 04/30/24723 Cony Roberts. Performed By: #### L 100.0100 ####[facility] [address] [place], [address] MCH (RBC) [Entitic mass] 32.1 pg High 27.0-32.0 [facility] Comment on above: Order Comment: REDRA W. PREVIOUS SPECIMEN REJECTED DUE TOQNS. 04/30/24723 Cony Roberts. Performed By: #### L 100.0100 ####[facility] [address] [place], [address] MCHC (RBC) [Mass/Vol] 33.1 g/dL Normal 32-36 [facility] Comment on above: Order Comment: REDRA W. PREVIOUS SPECIMEN REJECTED DUE TOQNS. 04/30/24723 Cony Roberts. Performed By: #### L 100.0100 ####[facility] [address] [place], [address] MCV (RBC) [Entitic vol] 97.1 fL Normal 81-99 [facility] Comment on above: Order Comment: REDRA W. PREVIOUS SPECIMEN REJECTED DUE TOQNS. 04/30/24723 Cony Roberts. Performed By: #### L 100.0100 ####[facility] [address] [place], [address] Monocytes/100 WBC (Bld) 10.2 % High 0-10 [facility] Comment on above: Order Comment: REDRA W. PREVIOUS SPECIMEN REJECTED DUE TOQNS. 04/30/24723 Cony Roberts. Performed By: #### L 100.0100 ####[facility] [address] [place], [address] Neutrophils/100 WBC (Bld) 73.6 % High 47-70 [facility] Comment on above: Order Comment: REDRA W. PREVIOUS SPECIMEN REJECTED DUE TOQNS. 04/30/24723 Cony Roberts. Performed By: #### L 100.0100 ####[facility] [address] [place], [address] Nucleated RBC (Bld) [#/Vol] 0 10*3/uL Normal 0-5 [facility] Comment on above: Order Comment: REDRA W. PREVIOUS SPECIMEN REJECTED DUE TOQNS. 04/30/24723 Cony Roberts. Performed By: #### L 100.0100 ####[facility] [address] [place], [address] Platelet mean volume (Bld) [Entitic vol] 9.7 fL Normal 6.2-12.0 [facility] Comment on above: Order Comment: REDRA W. PREVIOUS SPECIMEN REJECTED DUE TOQNS. 04/30/24723 Cony Roberts. Performed By: #### L 100.0100 ####[facility] [address] [place], [address] Platelets (Bld) [#/Vol] 190 10*3/uL Normal 150-450 [facility] Comment on above: Order Comment: REDRA W. PREVIOUS SPECIMEN REJECTED DUE TOQNS. 04/30/24723 Cony Roberts. Performed By: #### L 100.0100 ####[facility] [address] [place], [address] RBC (Bld) [#/Vol] 2.80 10*6/uL Low 4.2-5.4 [facility] Comment on above: Order Comment: REDRA W. PREVIOUS SPECIMEN REJECTED DUE TOQNS. 04/30/24723 Cony Roberts. Performed By: #### L 100.0100 ####[facility] [address] [place], [address] RDW SD 49.7 fl High 35.1-43.9 [facility] Comment on above: Order Comment: REDRA W. PREVIOUS SPECIMEN REJECTED DUE TOQNS. 04/30/24723 Cony Roberts. Performed By: #### L 100.0100 ####[facility] [address] [place], [address] WBC (Bld) [#/Vol] 10.5 10*3/uL Normal 4.4-11.0 [facility] Comment on above: Order Comment: REDRA W. PREVIOUS SPECIMEN REJECTED DUE TOQNS. 04/30/24723 Cony Roberts. Performed By: #### L 100.0100 ####[facility] [address] [place], [address] Absolute Neut Normal 2.0-7.7 [facility] Comment on above: Result Comment: This specimen has been REJECTED due to Laboratory criteria:Quanity Not Sufficient.SRAVANI has been notified of need of recollection.04/30/24722 Cony Roberts Performed By: #### L 100.0100, L500.2500 ####[facility] [address] [facility] [address] HCT Normal 37-47 [facility] Comment on above: Result Comment: This specimen has been REJECTED due to Laboratory criteria:Quanity Not Sufficient.SRAVANI has been notified of need of recollection.04/30/24722 Cony Roberts Performed By: #### L 100.0100, L500.2500 ####[facility] [address] [place], [address] HGB Normal 12.0-15.0 [facility] Comment on above: Result Comment: This specimen has been REJECTED due to Laboratory criteria:Quanity Not Sufficient.SRAVANI has been notified of need of recollection.04/30/24722 Cony Roberts Performed By: #### L 100.0100, L500.2500 ####[facility] [address] [place], [address] MCH Normal 27.0-32.0 [facility] Comment on above: Result Comment: This specimen has been REJECTED due to Laboratory criteria:Quanity Not Sufficient.SRAVANI has been notified of need of recollection.04/30/24722 Cony Roberts Performed By: #### L 100.0100, L500.2500 ####[facility] [address] [place], [address] MCHC Normal 32-36 [facility] Comment on above: Result Comment: This specimen has been REJECTED due to Laboratory criteria:Quanity Not Sufficient.SRAVANI has been notified of need of recollection.04/30/24722 Cony Roberts Performed By: #### L 100.0100, L500.2500 ####[facility] [address] [place], [address] MCV Normal 81-99 [facility] Comment on above: Result Comment: This specimen has been REJECTED due to Laboratory criteria:Quanity Not Sufficient.SRAVANI has been notified of need of recollection.04/30/24722 Cony Roberts Performed By: #### L 100.0100, L500.2500 ####[facility] [address] [place], [address] NEUT% Normal 47-70 [facility] Comment on above: Result Comment: This specimen has been REJECTED due to Laboratory criteria:Quanity Not Sufficient.SRAVANI has been notified of need of recollection.04/30/24722 Cony Roberts Performed By: #### L 100.0100, L500.2500 ####[facility] [address] [place], [address] PLT Normal 150-450 [facility] Comment on above: Result Comment: This specimen has been REJECTED due to Laboratory criteria:Quanity Not Sufficient.SRAVANI has been notified of need of recollection.04/30/24722 Cony Roberts Performed By: #### L 100.0100, L500.2500 ####[facility] [address] [place], [address] RBC Normal 4.2-5.4 [facility] Comment on above: Result Comment: This specimen has been REJECTED due to Laboratory criteria:Quanity Not Sufficient.SRAVANI has been notified of need of recollection.04/30/24722 Cony Roberts Performed By: #### L 100.0100, L500.2500 ####[facility] [address] [facility] [address] RDW CV Normal 11.6-14.6 [facility] Comment on above: Result Comment: This specimen has been REJECTED due to Laboratory criteria:Quanity Not Sufficient.SRAVANI has been notified of need of recollection.04/30/24722 Cony Roberts Performed By: #### L 100.0100, L500.2500 ####[facility] [address] [place], [address] RDW SD Normal 35.1-43.9 [facility] Comment on above: Result Comment: This specimen has been REJECTED due to Laboratory criteria:Quanity Not Sufficient.SRAVANI has been notified of need of recollection.04/30/24722 Cony Roberts Performed By: #### L 100.0100, L500.2500 ####[facility] [address] [place], [address] WBC Normal 4.4-11.0 [facility] Comment on above: Result Comment: This specimen has been REJECTED due to Laboratory criteria:Quanity Not Sufficient.SRAVANI has been notified of need of recollection.04/30/24 0723 Cony Armando Performed By: #### L 100.0100, L500.2500 ####[facility] [address] [place], [address] 12 Lead EKGon 04-29-2024 12 Lead EKG Normal [facility] Basic Metabolic Profile (BMP )on 04-29-2024 BUN/CRE 20.7 RATIO High 10-20 [facility] Comment on above: Performed By: #### L 500.2500, L100.0100 ####[facility] [address] [place], [address] CA,Total 8.8 mg/dL Normal 8.5-10.1 [facility] Comment on above: Performed By: #### L 500.2500, L100.0100 ####[facility] [address] [place], [address] Chloride [Moles/Vol] 96 mmol/L Low 98-107 [facility] Comment on above: Performed By: #### L 500.2500, L100.0100 ####[facility] [address] [place], [address] CO2 [Moles/Vol] 26.0 mmol/L Normal 21.0-32.0 [facility] [facility] Comment on above: Performed By: #### L 500.2500, L100.0100 ####[facility] [address] [place], [address] Creatinine [Mass/Vol] 2.22 mg/dL High 0.55-1.02 [facility] Comment on above: Result Comment: The validity of the calculated GFR GFRAA in patients over70 years has not been determined. Clinical correlation isessential. Performed By: #### L 500.2500, L100.0100 ####[facility] [address] [place], [address] ECRCL 25.27 ml/min Normal [facility] Comment on above: Performed By: #### L 500.2500, L100.0100 ####[facility] [address] [place], [address] EST GFR - AA 27 mL/min Low >60 [facility] Comment on above: Result Comment: Afri can Citizen [place] GFR Calc Performed By: #### L 500.2500, L100.0100 ####[facility] [address] [place], [address] GAP 10 Normal 5-15 [facility] Comment on above: Performed By: #### L 500.2500, L100.0100 ####[facility] [address] [place], [address] GFR/1.73 sq M.predicted among non-blacks MDRD (S/P/Bld) [Vol rate/Area] 23 mL/min/{1.73_m2} Low >60 [facility] Comment on above: Result Comment: Non- GFR Calc Performed By: #### L 500.2500, L100.0100 ####[facility] [address] [place], [address] Glucose [Mass/Vol] 209 mg/dL High 74-106 [facility] Comment on above: Result Comment: Gluc ose result greater than or equal to 200 mg/dLsuggests DIABETES MELLITUS per A.D.A. criteria. Performed By: #### L 500.2500, L100.0100 ####[facility] [address] [place], [address] Potassium [Moles/Vol] 4.1 mmol/L Normal 3.5-5.1 [facility] Comment on above: Performed By: #### L 500.2500, L100.0100 ####[facility] [address] [place], [address] Sodium [Moles/Vol] 132 mmol/L Low 136-145 [facility] Comment on above: Performed By: #### L 500.2500, L100.0100 ####[facility] [address] [place], [address] Urea nitrogen [Mass/Vol] 46 mg/dL High 7-18 [facility] Comment on above: Performed By: #### L 500.2500, L100.0100 ####[facility] [address] [place], [address] Bedside Glucoseon 04-29-2024 FINGERSTICK GLU 376 mg/dL High 74-106 [facility] Comment on above: Result Comment: JASON GEMENT OF PATIENT CARE PER NURSING PROTOCOL Performed By: #### L 501.080 ####[facility] [address] [place], [address] FINGERSTICK GLU 362 mg/dL High 74-106 [facility] Comment on above: Result Comment: JASON GEMENT OF PATIENT CARE PER NURSING PROTOCOL Performed By: #### L 501.080 ####[facility] [address] [place], [address] FINGERSTICK GLU 153 mg/dL High 74-106 [facility] Comment on above: Result Comment: JASON GEMENT OF PATIENT CARE PER NURSING PROTOCOL Performed By: #### L 501.080 ####[facility] [address] [place], [address] FINGERSTICK GLU 170 mg/dL High 74-106 [facility] Comment on above: Result Comment: JASON GEMENT OF PATIENT CARE PER NURSING PROTOCOL Performed By: #### L 501.080 ####[facility] [address] [place], [address] FINGERSTICK GLU 212 mg/dL High 74-106 [facility] Comment on above: Result Comment: JASON GEMENT OF PATIENT CARE PER NURSING PROTOCOL Performed By: #### L 501.080 ####[facility] [address] [place], [address] CBC W/Diff, Automatedon 04-18 Absolute Lymph 1.37 X10 3/uL Normal 0.83-4.51 [facility] Comment on above: Performed By: #### L 500.2500, L100.0100 ####[facility] [address] [place], [address] Absolute Neut 6.8 X10 3/uL Normal 2.0-7.7 [facility] Comment on above: Performed By: #### L 500.2500, L100.0100 ####[facility] [address] [place], [address] Basophils/100 WBC (Bld) 0.2 % Normal 0-1 [facility] Comment on above: Performed By: #### L 500.2500, L100.0100 ####[facility] [address] [place], [address] Eosinophils/100 WBC (Bld) 1.0 % Normal 0-5 [facility] Comment on above: Performed By: #### L 500.2500, L100.0100 ####[facility] [address] [place], [address] Erythrocyte distribution width (RBC) [Ratio] 14.0 % Normal 11.6-14.6 [facility] Comment on above: Performed By: #### L 500.2500, L100.0100 ####[facility] [address] [place], [address] Hematocrit (Bld) [Volume fraction] 30.9 % Low 37-47 [facility] Comment on above: Performed By: #### L 500.2500, L100.0100 ####[facility] [address] [place], [address] Hemoglobin (Bld) [Mass/Vol] 10.3 g/dL Low 12.0-15.0 [facility] Comment on above: Performed By: #### L 500.2500, L100.0100 ####[facility] [address] [place], [address] IG% 0.600 Normal 0.0-0.9 [facility] Comment on above: Result Comment: IG% - Immature Granulocytes (promyelocytes, myelocytes andmetamyelocytes) > 1% indicates that a LEFT SHIFT is Present. Performed By: #### L 500.2500, L100.0100 ####[facility] [address] [place], [address] Lymphocytes/100 WBC (Bld) 15.2 % Low 19-41 [facility] Comment on above: Performed By: #### L 500.2500, L100.0100 ####[facility] [address] [place], [address] MCH (RBC) [Entitic mass] 32.3 pg High 27.0-32.0 [facility] Comment on above: Performed By: #### L 500.2500, L100.0100 ####[facility] [address] [place], [address] MCHC (RBC) [Mass/Vol] 33.3 g/dL Normal 32-36 [facility] Comment on above: Performed By: #### L 500.2500, L100.0100 ####[facility] [address] [place], [address] MCV (RBC) [Entitic vol] 96.9 fL Normal 81-99 [facility] Comment on above: Performed By: #### L 500.2500, L100.0100 ####[facility] [address] [place], [address] Monocytes/100 WBC (Bld) 7.2 % Normal 0-10 [facility] Comment on above: Performed By: #### L 500.2500, L100.0100 ####[facility] [address] [place], [address] Neutrophils/100 WBC (Bld) 75.8 % High 47-70 [facility] Comment on above: Performed By: #### L 500.2500, L100.0100 ####[facility] [address] [place], [address] Nucleated RBC (Bld) [#/Vol] 0 10*3/uL Normal 0-5 [facility] Comment on above: Performed By: #### L 500.2500, L100.0100 ####[facility] [address] [place], [address] Platelet mean volume (Bld) [Entitic vol] 9.5 fL Normal 6.2-12.0 [facility] Comment on above: Performed By: #### L 500.2500, L100.0100 ####[facility] [address] [place], [address] Platelets (Bld) [#/Vol] 199 10*3/uL Normal 150-450 [facility] Comment on above: Performed By: #### L 500.2500, L100.0100 ####[facility] [address] [place], [address] RBC (Bld) [#/Vol] 3.19 10*6/uL Low 4.2-5.4 [facility] Comment on above: Performed By: #### L 500.2500, L100.0100 ####[facility] [address] [place], [address] RDW SD 50.2 fl High 35.1-43.9 [facility] Comment on above: Performed By: #### L 500.2500, L100.0100 ####[facility] [address] [place], [address] WBC (Bld) [#/Vol] 9.0 10*3/uL Normal 4.4-11.0 [facility] Comment on above: Performed By: #### L 500.2500, L100.0100 ####[facility] [address] [place], [address] Hemoglobin A1con 04-29-2024 HbA1c (Bld) [Mass fraction] 10.0 % High 3.8-5.6 [facility] Comment on above: Result Comment: Norm al < 5.7 % Prediabetic 5.7 - 6.4 % Diabetic >or= 6.5 % Please note range changes. Performed By: #### L 501.9985 ####[facility] [address] [place], [address] Hip 1 view with Pelvison Hip 1 view with Pelvis Normal [facility] MR/POSTOP.ANEon 04-29-2024 MR/POSTOP.ANE Normal [facility] MR/FWNUFSLI3zt 04-29-2024 MR/POSTOPAN2 Normal [facility] Operative Reporton Operative Report Normal [facility] 12 Lead EKGon 04-28-2024 12 Lead EKG Normal [facility] Basic Metabolic Profile (BMP )on 04-28-2024 BUN/CRE 23.3 RATIO High 10-20 [facility] Comment on above: Performed By: #### L 100.0100, L500.2500 ####[facility] [address] [place], [address] CA,Total 9.8 mg/dL Normal 8.5-10.1 [facility] Comment on above: Performed By: #### L 100.0100, L500.2500 ####[facility] [address] [place], [address] Chloride [Moles/Vol] 100 mmol/L Normal 98-107 [facility] Comment on above: Performed By: #### L 100.0100, L500.2500 ####[facility] [address] [place], [address] CO2 [Moles/Vol] 22.0 mmol/L Normal 21.0-32.0 [facility] Comment on above: Performed By: #### L 100.0100, L500.2500 ####[facility] [address] [place], [address] Creatinine [Mass/Vol] 2.32 mg/dL High 0.55-1.02 [facility] Comment on above: Result Comment: The validity of the calculated GFR GFRAA in patients over70 years has not been determined. Clinical correlation isessential. Performed By: #### L 100.0100, L500.2500 ####[facility] [address] [place], [address] ECRCL 24.74 ml/min Normal [facility] Comment on above: Performed By: #### L 100.0100, L500.2500 ####[facility] [address] [place], [address] EST GFR - AA 26 mL/min Low >60 [facility] Comment on above: Result Comment: Afri can Citizen [place] GFR Calc Performed By: #### L 100.0100, L500.2500 ####[facility] [address] [place], [address] GAP 11 Normal 5-15 [facility] Comment on above: Performed By: #### L 100.0100, L500.2500 ####[facility] [address] [place], [address] GFR/1.73 sq M.predicted among non-blacks MDRD (S/P/Bld) [Vol rate/Area] 22 mL/min/{1.73_m2} Low >60 [facility] Comment on above: Result Comment: Non- GFR Calc Performed By: #### L 100.0100, L500.2500 ####[facility] [address] [place], [address] Glucose [Mass/Vol] 152 mg/dL High 74-106 [facility] Comment on above: Result Comment: Fast ing Glucose result greater than or equal to 126 mg/dLsuggests DIABETES MELLITUS per A.D.A. criteria. Performed By: #### L 100.0100, L500.2500 ####[facility] [address] [place], [address] Potassium [Moles/Vol] 4.4 mmol/L Normal 3.5-5.1 [facility] Comment on above: Performed By: #### L 100.0100, L500.2500 ####[facility] [address] [place], [address] Sodium [Moles/Vol] 133 mmol/L Low 136-145 [facility] Comment on above: Performed By: #### L 100.0100, L500.2500 ####[facility] [address] [place], [address] Urea nitrogen [Mass/Vol] 54 mg/dL High 7-18 [facility] Comment on above: Performed By: #### L 100.0100, L500.2500 ####[facility] [address] [place], [address] Bedside Glucoseon 04-28-2024 FINGERSTICK GLU 170 mg/dL High 74-106 [facility] Comment on above: Result Comment: JASON GEMENT OF PATIENT CARE PER NURSING PROTOCOL Performed By: #### L 501.080 ####[facility] [address] [place], [address] FINGERSTICK GLU 177 mg/dL High 74-106 [facility] Comment on above: Result Comment: JASON GEMENT OF PATIENT CARE PER NURSING PROTOCOL Performed By: #### L 501.080 ####[facility] [address] [place], [address] Brain/Head without Contrasto n 04-28-2024 Brain/Head without Contrast Normal [facility] CBC W/Diff, Automatedon 04-18 Absolute Lymph 1.20 X10 3/uL Normal 0.83-4.51 [facility] Comment on above: Order Comment: REDRA W. PREVIOUS SPECIMEN REJECTED DUE TOCLOTTED. 04/28/24 1022 Alanis Godfrey. Performed By: #### L 100.0100 ####[facility] [address] [place], [address] Absolute Neut 15.7 X10 3/uL High 2.0-7.7 [facility] Comment on above: Order Comment: REDRA W. PREVIOUS SPECIMEN REJECTED DUE TOCLOTTED. 04/28/24 1022 Alanis Godfrey. Performed By: #### L 100.0100 ####[facility] [address] [place], [address] Basophils/100 WBC (Bld) 0.3 % Normal 0-1 [facility] Comment on above: Order Comment: REDRA W. PREVIOUS SPECIMEN REJECTED DUE TOCLOTTED. 04/28/24 1022 Alanis Godfrey. Performed By: #### L 100.0100 ####[facility] [address] [place], [address] Eosinophils/100 WBC (Bld) 0.3 % Normal 0-5 [facility] Comment on above: Order Comment: REDRA W. PREVIOUS SPECIMEN REJECTED DUE TOCLOTTED. 04/28/24 1022 Alanis Godfrey. Performed By: #### L 100.0100 ####[facility] [address] [place], [address] Erythrocyte distribution width (RBC) [Ratio] 14.1 % Normal 11.6-14.6 [facility] Comment on above: Order Comment: REDRA W. PREVIOUS SPECIMEN REJECTED DUE TOCLOTTED. 04/28/24 1022 Alanis Godfrey. Performed By: #### L 100.0100 ####[facility] [address] [place], [address] Hematocrit (Bld) [Volume fraction] 34.1 % Low 37-47 [facility] Comment on above: Order Comment: REDRA W. PREVIOUS SPECIMEN REJECTED DUE TOCLOTTED. 04/28/24 1022 Alanis Godfrey. Performed By: #### L 100.0100 ####[facility] [address] [place], [address] Hemoglobin (Bld) [Mass/Vol] 11.4 g/dL Low 12.0-15.0 [facility] Comment on above: Order Comment: REDRA W. PREVIOUS SPECIMEN REJECTED DUE TOCLOTTED. 04/28/24 1022 Alanis Godfrey. Performed By: #### L 100.0100 ####[facility] [address] [place], [address] IG% 0.900 Normal 0.0-0.9 [facility] Comment on above: Order Comment: REDRA W. PREVIOUS SPECIMEN REJECTED DUE TOCLOTTED. 04/28/24 1022 Alanis Godfrey. Result Comment: IG% - Immature Granulocytes (promyelocytes, myelocytes andmetamyelocytes) > 1% indicates that a LEFT SHIFT is Present. Performed By: #### L 100.0100 ####[facility] [address] [place], [address] Lymphocytes/100 WBC (Bld) 6.6 % Low 19-41 [facility] Comment on above: Order Comment: REDRA W. PREVIOUS SPECIMEN REJECTED DUE TOCLOTTED. 04/28/24 1022 Alanis Godfrey. Performed By: #### L 100.0100 ####[facility] [address] [place], [address] MCH (RBC) [Entitic mass] 31.8 pg Normal 27.0-32.0 [facility] Comment on above: Order Comment: REDRA W. PREVIOUS SPECIMEN REJECTED DUE TOCLOTTED. 04/28/24 1022 Alanis Godfrey. Performed By: #### L 100.0100 ####[facility] [address] [place], [address] MCHC (RBC) [Mass/Vol] 33.4 g/dL Normal 32-36 [facility] Comment on above: Order Comment: REDRA W. PREVIOUS SPECIMEN REJECTED DUE TOCLOTTED. 04/28/24 1022 Alanis Godfrey. Performed By: #### L 100.0100 ####[facility] [address] [place], [address] MCV (RBC) [Entitic vol] 95.3 fL Normal 81-99 [facility] Comment on above: Order Comment: REDRA W. PREVIOUS SPECIMEN REJECTED DUE TOCLOTTED. 04/28/24 1022 Alanis Godfrey. Performed By: #### L 100.0100 ####[facility] [address] [place], [address] Monocytes/100 WBC (Bld) 5.0 % Normal 0-10 [facility] Comment on above: Order Comment: REDRA W. PREVIOUS SPECIMEN REJECTED DUE TOCLOTTED. 04/28/24 1022 Alanis Godfrey. Performed By: #### L 100.0100 ####[facility] [address] [place], [address] Neutrophils/100 WBC (Bld) 86.9 % High 47-70 [facility] Comment on above: Order Comment: REDRA W. PREVIOUS SPECIMEN REJECTED DUE TOCLOTTED. 04/28/24 1022 Alanis Godfrey. Performed By: #### L 100.0100 ####[facility] [address] [place], [address] Nucleated RBC (Bld) [#/Vol] 0 10*3/uL Normal 0-5 [facility] Comment on above: Order Comment: REDRA W. PREVIOUS SPECIMEN REJECTED DUE TOCLOTTED. 04/28/24 1022 Alanis Godfrey. Performed By: #### L 100.0100 ####[facility] [address] [place], [address] Platelet mean volume (Bld) [Entitic vol] 9.2 fL Normal 6.2-12.0 [facility] Comment on above: Order Comment: REDRA W. PREVIOUS SPECIMEN REJECTED DUE TOCLOTTED. 04/28/24 1022 Alanis Godfrey. Performed By: #### L 100.0100 ####[facility] [address] [place], [address] Platelets (Bld) [#/Vol] 217 10*3/uL Normal 150-450 [facility] Comment on above: Order Comment: REDRA W. PREVIOUS SPECIMEN REJECTED DUE TOCLOTTED. 04/28/24 1022 Alanis Godfrey. Performed By: #### L 100.0100 ####[facility] [address] [place], [address] RBC (Bld) [#/Vol] 3.58 10*6/uL Low 4.2-5.4 [facility] Comment on above: Order Comment: REDRA W. PREVIOUS SPECIMEN REJECTED DUE TOCLOTTED. 04/28/24 1022 Alanis Godfrey. Performed By: #### L 100.0100 ####[facility] [address] [place], [address] RDW SD 49.0 fl High 35.1-43.9 [facility] Comment on above: Order Comment: REDRA W. PREVIOUS SPECIMEN REJECTED DUE TOCLOTTED. 04/28/24 1022 Alanis Godfrey. Performed By: #### L 100.0100 ####[facility] [address] [place], [address] WBC (Bld) [#/Vol] 18.1 10*3/uL High 4.4-11.0 [facility] Comment on above: Order Comment: REDRA W. PREVIOUS SPECIMEN REJECTED DUE TOCLOTTED. 04/28/24 1022 Alanis Godfrey. Performed By: #### L 100.0100 ####[facility] [address] [place], [address] Absolute Neut Normal 2.0-7.7 [facility] Comment on above: Result Comment: This specimen has been REJECTED due to Laboratory criteria:Clotted.ACOLE has been notified of need of recollection.04/28/24 1021 Alanis Godfrey Performed By: #### L 100.0100, L500.2500 ####[facility] [address] [place], [address] HCT Normal 37-47 [facility] Comment on above: Result Comment: This specimen has been REJECTED due to Laboratory criteria:Clotted.ACOLE has been notified of need of recollection.04/28/24 1021 Alanis Godfrey Performed By: #### L 100.0100, L500.2500 ####[facility] [address] [place], [address] HGB Normal 12.0-15.0 [facility] Comment on above: Result Comment: This specimen has been REJECTED due to Laboratory criteria:Clotted.ACOLE has been notified of need of recollection.04/28/241020 Alanis Godfrey Performed By: #### L 100.0100, L500.2500 ####[facility] [address] [place], [address] MCH Normal 27.0-32.0 [facility] Comment on above: Result Comment: This specimen has been REJECTED due to Laboratory criteria:Clotted.ACOLE has been notified of need of recollection.04/28/24 102 Alanis Godfrey Performed By: #### L 100.0100, L500.2500 ####[facility] [address] [place], [address] MCHC Normal 32-36 [facility] Comment on above: Result Comment: This specimen has been REJECTED due to Laboratory criteria:Clotted.ACOLE has been notified of need of recollection.04/28/24 1021 Alanis Godfrey Performed By: #### L 100.0100, L500.2500 ####[facility] [address] [place], [address] MCV Normal 81-99 [facility] Comment on above: Result Comment: This specimen has been REJECTED due to Laboratory criteria:Clotted.ACOLE has been notified of need of recollection.04/28/24 1021 Alanis Godfrey Performed By: #### L 100.0100, L500.2500 ####[facility] [address] [place], [address] NEUT% Normal 47-70 [facility] Comment on above: Result Comment: This specimen has been REJECTED due to Laboratory criteria:Clotted.ACOLE has been notified of need of recollection.04/28/24 1021 Alanis Godfrey Performed By: #### L 100.0100, L500.2500 ####[facility] [address] [place], [address] PLT Normal 150-450 [facility] Comment on above: Result Comment: This specimen has been REJECTED due to Laboratory criteria:Clotted.ACOLE has been notified of need of recollection.04/28/24 1021 Alanis Godfrey Performed By: #### L 100.0100, L500.2500 ####[facility] [address] [place], [address] RBC Normal 4.2-5.4 [facility] Comment on above: Result Comment: This specimen has been REJECTED due to Laboratory criteria:Clotted.ACOLE has been notified of need of recollection.04/28/24 1021 Alanis Godfrey Performed By: #### L 100.0100, L500.2500 ####[facility] [address] [place], [address] RDW CV Normal 11.6-14.6 [facility] Comment on above: Result Comment: This specimen has been REJECTED due to Laboratory criteria:Clotted.ACOLE has been notified of need of recollection.04/28/24 1021 Alanis Godfrey Performed By: #### L 100.0100, L500.2500 ####[facility] [address] [place], [address] RDW SD Normal 35.1-43.9 [facility] Comment on above: Result Comment: This specimen has been REJECTED due to Laboratory criteria:Clotted.ACOLE has been notified of need of recollection.04/28/24 1021 Alanis Godfrey Performed By: #### L 100.0100, L500.2500 ####[facility] [address] [place], [address] WBC Normal 4.4-11.0 [facility] Comment on above: Result Comment: This specimen has been REJECTED due to Laboratory criteria:Clotted.ACOLE has been notified of need of recollection.04/28/24 1021 Alanis Godfrey Performed By: #### L 100.0100, L500.2500 ####[facility] [address] [place], [address] Chest 1 View (Portable)on Chest 1 View (Portable) Normal [facility] Consultation - Orthopedicson 04-28-2024 Consultation - Orthopedics Normal [facility] Emergency Department Summary on 04-28-2024 Emergency Department Summary Normal [facility] H AND P Exam - Hospitaliston 04-28-2024 H&P Exam - Hospitalist Normal [facility] HIP, UNI W/ Pelvis 2-3 Views on 04-28-2024 HIP, UNI W/ Pelvis 2-3 Views Normal [facility] Shoulder min 2 Viewson 04-28 Shoulder min 2 Views Normal [facility] Spine Cervical without Contr ason 04-28-2024 Spine Cervical without Contras Normal [facility] Type AND Screenon 04-28-2024 Ab SCREEN GEL Negative Normal [facility] Comment on above: Order Comment: S Performed By: #### B TS ####[facility] [address] [place], [address] ABO and Rh group Nom (Bld) Blood group A Rh(D) positive Normal [facility] Comment on above: Order Comment: S Performed By: #### B TS ####[facility] [address] [place], [address] HH, Hemoglobin AND Hematocri ton 04-21-2024 Hematocrit (Bld) [Volume fraction] 36.4 % Low 37-47 [facility] [facility] Comment on above: Performed By: #### L 100.0600, L500.3600 ####[facility] [address] [place], [address] Hemoglobin (Bld) [Mass/Vol] 11.7 g/dL Low 12.0-15.0 [facility] Comment on above: Performed By: #### L 100.0600, L500.3600 ####[facility] [address] [place], [address] Renal Profileon 04-21-2024 Albumin [Mass/Vol] 3.2 g/dL Normal 3.2-5.0 [facility] Comment on above: Performed By: #### L 100.0600, L500.3600 ####[facility] [address] [place], [address] BUN/CRE 21.2 RATIO High 10-20 [facility] Comment on above: Performed By: #### L 100.0600, L500.3600 ####[facility] [address] [place], [address] CA,Total 9.4 mg/dL Normal 8.5-10.1 [facility] Comment on above: Performed By: #### L 100.0600, L500.3600 ####[facility] [address] [place], [address] Chloride [Moles/Vol] 104 mmol/L Normal 98-107 [facility] Comment on above: Performed By: #### L 100.0600, L500.3600 ####[facility] [address] [place], [address] CO2 [Moles/Vol] 26.0 mmol/L Normal 21.0-32.0 [facility] Comment on above: Performed By: #### L 100.0600, L500.3600 ####[facility] [address] [place], [address] Creatinine [Mass/Vol] 1.93 mg/dL High 0.55-1.02 [facility] Comment on above: Result Comment: The validity of the calculated GFR GFRAA in patients over70 years has not been determined. Clinical correlation isessential. Performed By: #### L 100.0600, L500.3600 ####[facility] [address] [place], [address] EST GFR - AA 32 mL/min Low >60 [facility] Comment on above: Result Comment: Afri can Citizen [place] GFR Calc Performed By: #### L 100.0600, L500.3600 ####[facility] [address] [place], [address] GFR/1.73 sq M.predicted among non-blacks MDRD (S/P/Bld) [Vol rate/Area] 27 mL/min/{1.73_m2} Low >60 [facility] Comment on above: Result Comment: Non- GFR Calc Performed By: #### L 100.0600, L500.3600 ####[facility] [address] [place], [address] Glucose [Mass/Vol] 170 mg/dL High 74-106 [facility] Comment on above: Result Comment: Fast ing Glucose result greater than or equal to 126 mg/dLsuggests DIABETES MELLITUS per A.D.A. criteria. Performed By: #### L 100.0600, L500.3600 ####[facility] [address] [place], [address] Phosphate [Mass/Vol] 3.3 mg/dL Normal 2.5-4.9 [facility] Comment on above: Performed By: #### L 100.0600, L500.3600 ####[facility] [address] [place], [address] Potassium [Moles/Vol] 4.3 mmol/L Normal 3.5-5.1 [facility] Comment on above: Performed By: #### L 100.0600, L500.3600 ####[facility] [address] [place], [address] Sodium [Moles/Vol] 138 mmol/L Normal 136-145 [facility] Comment on above: Performed By: #### L 100.0600, L500.3600 ####[facility] [address] [place], [address] Urea nitrogen [Mass/Vol] 41 mg/dL High 7-18 [facility] Comment on above: Performed By: #### L 100.0600, L500.3600 ####[facility] [address] [place], [address] [facility] -------- VAL ERICKSON ([id number]) 1945 F Date Time Provider Department 04/13/24 TESSA BROCK [facility] During your visit today, we recorded the following information about you: Carole Lundy LPN 04/13/2024 9:47 AM Signed Pt calls to report that [facility] does not have Mounjoro so she cannot get it there. [facility] also does not have it. Pt does not drive and it is hard for her to get someone to pick up attendant prescriptions. Pt is asking where else she could get Mounjoro or what else can she do. Please review and advise. JAMES Aleman Antonietta, RPh 04/13/2024 4:02 PM Signed Called and spoke with patient. Discussed option of [facility] for Mounjaro prescription; patient agreeable. Sent Rx to [facility] pharmacy Patient's request for medication is as follows: Requested Prescriptions Signed Prescriptions Disp Refills tirzepatide (MOUNJARO) 2.5 mg/0.5 mL pen injector 2 mL 1 Sig: Inject 2.5 mg subcutaneously one time a week. Authorizing Provider: KACY MRAY Ordering User: TESSA BROCK, PharmD, BCACP Primary Care Clinical Wine And Spirits Clerk Allergies As of Date: 04/13/2024 Noted Allergy Reaction RYBELSUS (SEMAGLUTIDE) 07/10/2023 5 - Intolerance Comments: Uncontrollable indigestion LEVAQUIN (LEVOFLOXACIN) 12/29/2004 Comments: itching,diarrhea,dausea, burning skin SEASONAL ALLERGIES 08/19/2014 14 - Other: See Comments Comments: Sinus SULFA (SULFONAMIDE ANTIBIOTICS) 12/29/2004 Comments: rash and hives Date Reviewed: 04/08/2024 Reviewed by: Tessa Brock RPh - Fully Assessed Reason for Visit: Medication Problem [65] Cmt: Order(s):tirzepatide (MOUNJARO) 2.5 mg/0.5 mL pen injectorInject 2.5 mg subcutaneously one time a week.Disp: 2 mLRfl: 1 Prescriptions as of 04/13/2024 - tirzepatide (MOUNJARO) 2.5 mg/0.5 mL pen injector Inject 2.5 mg subcutaneously one time a week. - furosemide (LASIX) 20 mg tablet Take 1 tablet by mouth once daily. Take an extra 20 mg tablet daily as needed - gabapentin (NEURONTIN) 300 mg capsule Take 1 capsule by mouth two times a day for 180 days. - simvastatin (ZOCOR) 40 mg tablet Take 1 tablet by mouth daily at bedtime. For cholesterol. - insulin glargine (LANTUS SOLOSTAR U-100 INSULIN) 100 unit/mL (3 mL) Inject 60 Units subcutaneously daily at bedtime. - Insulin [place], Disposable, 29 gauge x 1/2 Use once daily as directed. Dx E11.29 - venlafaxine ER (EFFEXOR XR) 75 mg 24 hr capsule Take 1 capsule by mouth once daily. - empagliflozin (JARDIANCE) 10 mg tablet Take 1 tablet by mouth once daily. Prescribed by ballistics teacher - calcitriol (ROCALTROL) 0.5 mcg capsule Take 0.5 mcg by mouth. - clotrimazole (LOTRIMIN) 1 % cream Apply to affected area. - lidocaine (SALONPAS) 4 % patch Apply 1 Patch as directed. - hydrALAZINE (APRESOLINE) 25 mg tablet Take 25 mg by mouth three times a day. - metoprolol succinate ER (TOPROL XL) 50 mg 24 hr tablet Take 1 tablet by mouth once daily. Per Dr. Yulia Antoine, cardiology. - mytzcbcisjy-tjsxvbing-om lanter (TRELEGY ELLIPTA) 100-62.5-25 mcg inhalation powder Inhale 1 Puff as instructed once daily. - docusate sodium (COLACE) 100 mg capsule Take 1 capsule by mouth as needed. - melatonin 5 mg tablet Take 2 tablets by mouth. - senna (SENOKOT) 8.6 mg tab Take 1 tablet by mouth as needed. - Vit C-Vit P-Iqztjd-PiTh-Lutein (PRESERVISION LUTEIN) 226 mg-200 unit -5 mg-0.8 mg cap Take 1 capsule by mouth once daily. - COMPOUNDED PRESCRIPTION Take 1 tablet by mouth twice daily. Plexus Bio-5 (Probiotic) - blood sugar diagnostic ([employer] CorporationTOUCH ULTRA TEST) test strip Test blood sugar(s) 2 times daily. - epoetin zari (PROCRIT,EPOGEN) 10,000 unit/mL injection Inject 10,000 Units subcutaneously q 4 WEEKS. 12,000 Units every two weeks. - Lancets (FREESTYLE LANCETS) Misc Misc Test twice daily 250.02 Problem List As Of Date 04/13/2024 Noted Resolved Essential hypertension [I10] Generalized osteoarthritis [...] [N25.81] 07/18/2009 Lumbago [M54.50] 09/26/2011 06/17/2017 Benign (more content not included)... Normal [facility] VAL ERICKSON ([id number]) 1945 F Date Time Provider Department 04/08/24 [facility] During your visit today, we recorded the following information about you: Viktoria Johnston RN 04/08/2024 2:11 PM Signed Patient was having trouble answering telephone call for appt. Requests call back at [phone]. [facility] 04/08/2024 2:25 PM Signed Called and spoke with patient for scheduled phone visit Tessa Brock, PharmD, BCACP Primary Care Clinical Wine And Spirits Clerk Allergies As of Date: 04/08/2024 Noted Allergy Reaction RYBELSUS (SEMAGLUTIDE) 07/10/2023 5 - Intolerance Comments: Uncontrollable indigestion LEVAQUIN (LEVOFLOXACIN) 12/29/2004 Comments: itching,diarrhea,dausea, burning skin SEASONAL ALLERGIES 08/19/2014 14 - Other: See Comments Comments: Sinus SULFA (SULFONAMIDE ANTIBIOTICS) 12/29/2004 Comments: rash and hives Date Reviewed: 04/08/2024 Reviewed by: Tessa Brock [facility] - Fully Assessed Reason for Visit: Appointment [186] Prescriptions as of 04/08/2024 - tirzepatide (MOUNJARO) 2.5 mg/0.5 mL pen injector Inject 2.5 mg subcutaneously one time a week. - furosemide (LASIX) 20 mg tablet Take 1 tablet by mouth once daily. Take an extra 20 mg tablet daily as needed - gabapentin (NEURONTIN) 300 mg capsule Take 1 capsule by mouth two times a day for 180 days. - simvastatin (ZOCOR) 40 mg tablet Take 1 tablet by mouth daily at bedtime. For cholesterol. - insulin glargine (LANTUS SOLOSTAR U-100 INSULIN) 100 unit/mL (3 mL) Inject 60 Units subcutaneously daily at bedtime. - Insulin [place], Disposable, 29 gauge x 1/2 Use once daily as directed. Dx E11.29 - venlafaxine ER (EFFEXOR XR) 75 mg 24 hr capsule Take 1 capsule by mouth once daily. - empagliflozin (JARDIANCE) 10 mg tablet Take 1 tablet by mouth once daily. Prescribed by ballistics teacher - calcitriol (ROCALTROL) 0.5 mcg capsule Take 0.5 mcg by mouth. - clotrimazole (LOTRIMIN) 1 % cream Apply to affected area. - lidocaine (SALONPAS) 4 % patch Apply 1 Patch as directed. - hydrALAZINE (APRESOLINE) 25 mg tablet Take 25 mg by mouth three times a day. - metoprolol succinate ER (TOPROL XL) 50 mg 24 hr tablet Take 1 tablet by mouth once daily. Per Dr. Yulia Antoine, cardiology. - tsrbtpekfnj-mbvlnpibf-fe lanter (TRELEGY ELLIPTA) 100-62.5-25 mcg inhalation powder Inhale 1 Puff as instructed once daily. - docusate sodium (COLACE) 100 mg capsule Take 1 capsule by mouth as needed. - melatonin 5 mg tablet Take 2 tablets by mouth. - senna (SENOKOT) 8.6 mg tab Take 1 tablet by mouth as needed. - Vit C-Vit N-Ezoftt-BeCs-Lutein (PRESERVISION LUTEIN) 226 mg-200 unit -5 mg-0.8 mg cap Take 1 capsule by mouth once daily. - COMPOUNDED PRESCRIPTION Take 1 tablet by mouth twice daily. Plexus Bio-5 (Probiotic) - blood sugar diagnostic ([employer] CorporationTOUCH ULTRA TEST) test strip Test blood sugar(s) 2 times daily. - epoetin zari (PROCRIT,EPOGEN) 10,000 unit/mL injection Inject 10,000 Units subcutaneously q 4 WEEKS. 12,000 Units every two weeks. - Lancets (FREESTYLE LANCETS) Misc Misc Test twice daily 250.02 Problem List As Of Date 04/08/2024 Noted Resolved Essential hypertension [I10] Generalized osteoarthritis [...] bilateral [H52.223] 10/09/2016 06/17/2017 DDD (degenerative disc (more content not included)... Normal [facility] CNPN Telephone ([facility]) -------- VAL ERICKSON ([id number]) 1945 F Date Time Provider Department 04/08/24 TESSA BROCK [facility] During your visit today, we recorded the following information about you: Elizabeth Obando RN 04/08/2024 3:10 PM Signed Patient calling in and states [facility] is unable to get her Mounjaro for her, as ordered by Reese Brock [facility]. Patient requesting script be sent to [facility], please. Thank you. SYLVAIN Byrd Antonietta [facility] 04/08/2024 3:16 PM Signed Rx sent to [facility]. Patient's request for medication is as follows: Requested Prescriptions Signed Prescriptions Disp Refills tirzepatide (MOUNJARO) 2.5 mg/0.5 mL pen injector 2 mL 1 Sig: Inject 2.5 mg subcutaneously one time a week. Authorizing Provider: KACY MARY Ordering User: TESSA BROCK, PharmD, BCACP Primary Care Clinical Wine And Spirits Clerk Allergies As of Date: 04/08/2024 Noted Allergy Reaction RYBELSUS (SEMAGLUTIDE) 07/10/2023 5 - Intolerance Comments: Uncontrollable indigestion LEVAQUIN (LEVOFLOXACIN) 12/29/2004 Comments: itching,diarrhea,dausea, burning skin SEASONAL ALLERGIES 08/19/2014 14 - Other: See Comments Comments: Sinus SULFA (SULFONAMIDE ANTIBIOTICS) 12/29/2004 Comments: rash and hives Date Reviewed: 04/08/2024 Reviewed by: Tessa Brock [facility] - Fully Assessed Reason for Visit: Patient Request [4696] Order(s):Order #: [id number] Prescriptions as of 04/08/2024 - tirzepatide (MOUNJARO) 2.5 mg/0.5 mL pen injector Inject 2.5 mg subcutaneously one time a week. - furosemide (LASIX) 20 mg tablet Take 1 tablet by mouth once daily. Take an extra 20 mg tablet daily as needed - gabapentin (NEURONTIN) 300 mg capsule Take 1 capsule by mouth two times a day for 180 days. - simvastatin (ZOCOR) 40 mg tablet Take 1 tablet by mouth daily at bedtime. For cholesterol. - insulin glargine (LANTUS SOLOSTAR U-100 INSULIN) 100 unit/mL (3 mL) Inject 60 Units subcutaneously daily at bedtime. - Insulin [place], Disposable, 29 gauge x 1/2 Use once daily as directed. Dx E11.29 - venlafaxine ER (EFFEXOR XR) 75 mg 24 hr capsule Take 1 capsule by mouth once daily. - empagliflozin (JARDIANCE) 10 mg tablet Take 1 tablet by mouth once daily. Prescribed by ballistics teacher - calcitriol (ROCALTROL) 0.5 mcg capsule Take 0.5 mcg by mouth. - clotrimazole (LOTRIMIN) 1 % cream Apply to affected area. - lidocaine (SALONPAS) 4 % patch Apply 1 Patch as directed. - hydrALAZINE (APRESOLINE) 25 mg tablet Take 25 mg by mouth three times a day. - metoprolol succinate ER (TOPROL XL) 50 mg 24 hr tablet Take 1 tablet by mouth once daily. Per Dr. Yulia Antoine, cardiology. - ynzfetqunhj-raszyzzbn-vv lanter (TRELEGY ELLIPTA) 100-62.5-25 mcg inhalation powder Inhale 1 Puff as instructed once daily. - docusate sodium (COLACE) 100 mg capsule Take 1 capsule by mouth as needed. - melatonin 5 mg tablet Take 2 tablets by mouth. - senna (SENOKOT) 8.6 mg tab Take 1 tablet by mouth as needed. - Vit C-Vit N-Gggcob-LuNu-Lutein (PRESERVISION LUTEIN) 226 mg-200 unit -5 mg-0.8 [...] daily 250.02 Problem List As Of Date 04/08/2024 Noted Resolved Essential hypertension [I10] Generalized osteoarthritis [...] Lytic lesion of bone on x-ray [M89.9] (more content not included)... Normal [facility] 03-30-2024 CNPN Telephone ([facility]) -------- VAL ERICKSON ([id number]) 1945 F Date Time Provider Department 03/30/24 KACY MARY [facility] During your visit today, we recorded the following information about you: aKcy Mary APRN.COCONUT COOKER 03/30/2024 3:12 PM Signed Please let the patient know the urine culture was positive for UTI. Start treatment with Keflex and follow-up in 2-3 days if there is no improvement EVIE Cordova Julia, LPN 03/30/2024 4:53 PM Signed PATIENT NOTIFIED OF SAME. Allergies As of Date: 03/30/2024 Noted Allergy Reaction RYBELSUS (SEMAGLUTIDE) 07/10/2023 5 - Intolerance Comments: Uncontrollable indigestion LEVAQUIN (LEVOFLOXACIN) 12/29/2004 Comments: itching,diarrhea,dausea, burning skin SEASONAL ALLERGIES 08/19/2014 14 - Other: See Comments Comments: Sinus SULFA (SULFONAMIDE ANTIBIOTICS) 12/29/2004 Comments: rash and hives Date Reviewed: 03/25/2024 Reviewed by: Kacy Mary APRN.COCONUT COOKER - Fully Assessed Order(s):cephALEXin (KEFLEX) 250 mg capsuleTake 1 capsule by mouth two times a day for 7 days.Disp: 14 capsuleRfl: 0 Prescriptions as of 03/30/2024 - cephALEXin (KEFLEX) 250 mg capsule Take 1 capsule by mouth two times a day for 7 days. - furosemide (LASIX) 20 mg tablet Take 1 tablet by mouth once daily. Take an extra 20 mg tablet daily as needed - gabapentin (NEURONTIN) 300 mg capsule Take 1 capsule by mouth two times a day for 180 days. - simvastatin (ZOCOR) 40 mg tablet Take 1 tablet by mouth daily at bedtime. For cholesterol. - insulin glargine (LANTUS SOLOSTAR U-100 INSULIN) 100 unit/mL (3 mL) Inject 60 Units subcutaneously daily at bedtime. - Insulin [place], Disposable, 29 gauge x 1/2 Use once daily as directed. Dx E11.29 - venlafaxine ER (EFFEXOR XR) 75 mg 24 hr capsule Take 1 capsule by mouth once daily. - empagliflozin (JARDIANCE) 10 mg tablet Take 1 tablet by mouth once daily. Prescribed by ballistics teacher - calcitriol (ROCALTROL) 0.5 mcg capsule Take 0.5 mcg by mouth. - clotrimazole (LOTRIMIN) 1 % cream Apply to affected area. - lidocaine (SALONPAS) 4 % patch Apply 1 Patch as directed. - hydrALAZINE (APRESOLINE) 25 mg tablet Take 25 mg by mouth three times a day. - metoprolol succinate ER (TOPROL XL) 50 mg 24 hr tablet Take 1 tablet by mouth once daily. Per Dr. Yulia Antoine, cardiology. - isiytxmlrvo-ufyfcffok-pv lanter (TRELEGY ELLIPTA) 100-62.5-25 mcg inhalation powder Inhale 1 Puff as instructed once daily. - docusate sodium (COLACE) 100 mg capsule Take 1 capsule by mouth as needed. - melatonin 5 mg tablet Take 2 tablets by mouth. - senna (SENOKOT) 8.6 mg tab Take 1 tablet by mouth as needed. - Vit C-Vit C-Bljocn-AaBo-Lutein (PRESERVISION LUTEIN) 226 mg-200 unit -5 mg-0.8 mg cap Take 1 capsule by mouth once daily. - COMPOUNDED PRESCRIPTION Take 1 tablet by mouth twice daily. Plexus Bio-5 (Probiotic) - blood sugar diagnostic ([employer] ULTRA TEST) test strip Test blood sugar(s) 2 times daily. - epoetin zari (PROCRIT,EPOGEN) 10,000 unit/mL injection Inject 10,000 Units subcutaneously q 4 WEEKS. 12,000 Units every two weeks. - Lancets (FREESTYLE LANCETS) Misc Misc Test twice daily 250.02 Problem List As Of Date 03/30/2024 Noted Resolved Essential hypertension [I10] Generalized osteoarthritis [...] Regular astigmatism, bilateral [H52.223] 10/09/2016 06/17/2017 DDD (degenera (more content not included)... Normal [facility] Urine Cultureon 03-28-2024 [facility] Normal [facility] Comment on above: Performed By: #### L 400.0001, M100.2200 ####[facility] [address] [place], [place], [id number] CBC-Complete Blood Cnt No Di ffon 03-25-2024 Erythrocyte distribution width (RBC) [Ratio] 14.1 % Normal 11.6-14.6 [facility] Comment on above: Performed By: #### L 503.6550, L501.0900, L500.3600, L503.6030, L509.1000, L100.0500, L506.1000 ####[facility] [address] [place], [address] Hematocrit (Bld) [Volume fraction] 36.4 % Low 37-47 [facility] Comment on above: Performed By: #### L 503.6550, L501.0900, L500.3600, L503.6030, L509.1000, L100.0500, L506.1000 ####[facility] [address] [place], [address] Hemoglobin (Bld) [Mass/Vol] 11.9 g/dL Low 12.0-15.0 [facility] Comment on above: Performed By: #### L 503.6550, L501.0900, L500.3600, L503.6030, L509.1000, L100.0500, L506.1000 ####[facility] [address] [place], [address] MCH (RBC) [Entitic mass] 31.6 pg Normal 27.0-32.0 [facility] Comment on above: Performed By: #### L 503.6550, L501.0900, L500.3600, L503.6030, L509.1000, L100.0500, L506.1000 ####[facility] [address] [place], [address] MCHC (RBC) [Mass/Vol] 32.7 g/dL Normal 32-36 [facility] Comment on above: Performed By: #### L 503.6550, L501.0900, L500.3600, L503.6030, L509.1000, L100.0500, L506.1000 ####[facility] [address] [place], [address] MCV (RBC) [Entitic vol] 96.8 fL Normal 81-99 [facility] Comment on above: Performed By: #### L 503.6550, L501.0900, L500.3600, L503.6030, L509.1000, L100.0500, L506.1000 ####[facility] [address] [place], [address] Platelet mean volume (Bld) [Entitic vol] 9.5 fL Normal 6.2-12.0 [facility] Comment on above: Performed By: #### L 503.6550, L501.0900, L500.3600, L503.6030, L509.1000, L100.0500, L506.1000 ####[facility] [address] [place], [address] Platelets (Bld) [#/Vol] 224 10*3/uL Normal 150-450 [facility] Comment on above: Performed By: #### L 503.6550, L501.0900, L500.3600, L503.6030, L509.1000, L100.0500, L506.1000 ####[facility] [address] [place], [address] RBC (Bld) [#/Vol] 3.76 10*6/uL Low 4.2-5.4 [facility] Comment on above: Performed By: #### L 503.6550, L501.0900, L500.3600, L503.6030, L509.1000, L100.0500, L506.1000 ####[facility] [address] [place], [address] RDW SD 49.5 fl High 35.1-43.9 [facility] Comment on above: Performed By: #### L 503.6550, L501.0900, L500.3600, L503.6030, L509.1000, L100.0500, L506.1000 ####[facility] [address] [place], [address] WBC (Bld) [#/Vol] 9.2 10*3/uL Normal 4.4-11.0 [facility] Comment on above: Performed By: #### L 503.6550, L501.0900, L500.3600, L503.6030, L509.1000, L100.0500, L506.1000 ####[facility] [address] [place], [address] CNOVon 03-25-2024 CNOV Office Visit (INTMWS ) -------- VAL ERICKSON ([id number]) 1945 F Date Time Provider Department 03/25/24 11:00 AM KACY MARY INTMWS During your visit today, we recorded the following information about you: Pulse Respiration Blood pressure Weight 95/minute 16/minute 124/84 130 kg Kacy Mary, VISUAL DISPLAY MANAGER.COCONUT COOKER 03/25/2024 1:05 PM Signed CC: Patient presents with: Follow Up: 6 months HPI Val Erickson is a 79 year old female who presents today for above. She is taking medications as prescribed, denies side effects. Her home blood sugar readings have not been well controlled which she attributes to poor eating habits during the holidays. She has been experiencing urinary frequency intermittently x 2 weeks. Associated with urgency. Denies back or abdominal pain, dysuria, fever, chills, hematuria. She has been taking AZO with temporary relief. She is following up with specialists as directed including nephrology, cardiology, pulmonology and pharm D. Review of Systems Constitutional: Negative for unexpected weight change. Respiratory: Positive for shortness of breath (chronic, baseline). Negative for cough and wheezing. Wears continuous oxygen at night only Cardiovascular: Positive for leg swelling (chronic, baseline). Negative for chest pain and palpitations. Neurological: Negative for dizziness, syncope, weakness, light-headedness and headaches. PAST MEDICAL HISTORY Diagnosis Date Acute bronchitis [...] EXTRACTION HX 2015 both eyes catacts removed, [facility] CHOLECYSTECTOMY 1970 COLONOSCOPY FLX DX [...] TOTAL ABDOMINAL HYSTERECT W/WO RMVL TUBE OVARY 1969 Hysterectomy, DANIEL, Bilateral BSO ALLERGIES Rybelsus [Semaglutide], Levaquin [Levofloxacin], Seasonal Allergies, and Sulfa (Sulfonamide Antibiotics) MEDICATIONS insulin glargine (LANTUS SOLOSTAR U-100 INSULIN) 100 unit/mL (3 mL) Inj (more content not included)... Normal [facility] Ferritinon 03-25-2024 Ferritin [Mass/Vol] 94 ng/mL Normal 8-252 [facility] Comment on above: Performed By: #### L 503.6550, L501.0900, L500.3600, L503.6030, L509.1000, L100.0500, L506.1000 ####[facility] [address] [place], [place], [id number] HEMOGLOBIN A1C (POC)on 03-25 HbA1c (Bld) [Mass fraction] 11.0 % Abnormal 4.3 - 5.6 % [facility] Comment on above: Location:[address], [place], [address] Point of care (POC) Hemoglobin A1c (HGBA1C) testing is intended to assess glucose control and provide a management tool for patients known to have diabetes and their healthcare providers. Target HGBA1C levels may depend on specific clinical circumstances. POC HGBA1C is not intended for use as a diagnostic or screening test; laboratory-based testing should be used for diagnostic purposes. The following information is supplemental and may not be applicable to specific diabetes management situations: The POC device nurses superintendent provides a normal range of 4.2% to 6.5% for the HGBA1C POC test. However, the [place] Diabetes Association guidelines indicate that patients with HGBA1C in the range of 5.7% to 6.4% are at increased risk for development of diabetes and that intervention by lifestyle modification may be beneficial. A HGBA1C level greater than or equal to 6.5% is considered diagnostic of diabetes, pending confirmatory testing. Use of HGBA1C testing to evaluate glucose control may not be appropriate for patients with hemoglobin variants or other conditions (e.g. anemia) that alter red blood cell lifespan. Interpretation and review of laboratory results Abnormal [facility] Iron+Iron Binding Capacityon 03-25-2024 Iron [Mass/Vol] 71 ug/dL Normal 50-170 [facility] Comment on above: Performed By: #### L 503.6550, L501.0900, L500.3600, L503.6030, L509.1000, L100.0500, L506.1000 ####[facility] [address] [place], [address] IRON SATURATION 25.4 Normal 15.0-55.0 [facility] Comment on above: Performed By: #### L 503.6550, L501.0900, L500.3600, L503.6030, L509.1000, L100.0500, L506.1000 ####[facility] [address] [place], [address] TIBC 279 ug/dL Normal 250-450 [facility] Comment on above: Performed By: #### L 503.6550, L501.0900, L500.3600, L503.6030, L509.1000, L100.0500, L506.1000 ####[facility] [address] [place], [address] PTHINon 03-25-2024 PTH 207.6 pg/mL High 18.4-80.1 [facility] Comment on above: Performed By: #### L 503.6550, L501.0900, L500.3600, L503.6030, L509.1000, L100.0500, L506.1000 ####[facility] [address] [place], [address] Protein+Creatinine Ratio,Uri neon 03-25-2024 PROT:CRE RATIO 870 mg/g CRE High 0-200 [facility] Comment on above: Performed By: #### L 503.6550, L501.0900, L500.3600, L503.6030, L509.1000, L100.0500, L506.1000 ####[facility] [address] [place], [address] Protein (U) [Mass/Vol] 22.0 mg/dL High <11.9 [facility] Comment on above: Performed By: #### L 503.6550, L501.0900, L500.3600, L503.6030, L509.1000, L100.0500, L506.1000 ####[facility] [address] [place], [address] UR CREAT 25.30 mg/dL Normal NO RANGE EST. [facility] Comment on above: Performed By: #### L 503.6550, L501.0900, L500.3600, L503.6030, L509.1000, L100.0500, L506.1000 ####[facility] [address] [place], [address] Renal Profileon 03-25-2024 Albumin [Mass/Vol] 3.5 g/dL Normal 3.2-5.0 [facility] Comment on above: Performed By: #### L 503.6550, L501.0900, L500.3600, L503.6030, L509.1000, L100.0500, L506.1000 ####[facility] [address] [place], [address] BUN/CRE 16.2 RATIO Normal 10-20 [facility] Comment on above: Performed By: #### L 503.6550, L501.0900, L500.3600, L503.6030, L509.1000, L100.0500, L506.1000 ####[facility] [address] [place], [address] CA,Total 9.6 mg/dL Normal 8.5-10.1 [facility] Comment on above: Performed By: #### L 503.6550, L501.0900, L500.3600, L503.6030, L509.1000, L100.0500, L506.1000 ####[facility] [address] [place], [address] Chloride [Moles/Vol] 105 mmol/L Normal 98-107 [facility] Comment on above: Performed By: #### L 503.6550, L501.0900, L500.3600, L503.6030, L509.1000, L100.0500, L506.1000 ####[facility] [address] [place], [address] CO2 [Moles/Vol] 23.0 mmol/L Normal 21.0-32.0 [facility] Comment on above: Performed By: #### L 503.6550, L501.0900, L500.3600, L503.6030, L509.1000, L100.0500, L506.1000 ####[facility] [address] [place], [address] Creatinine [Mass/Vol] 2.34 mg/dL High 0.55-1.02 [facility] Comment on above: Result Comment: The validity of the calculated GFR GFRAA in patients over70 years has not been determined. Clinical correlation isessential. Performed By: #### L 503.6550, L501.0900, L500.3600, L503.6030, L509.1000, L100.0500, L506.1000 ####[facility] [address] [place], [address] EST GFR - AA 26 mL/min Low >60 [facility] Comment on above: Result Comment: Afri can [place] GFR Calc Performed By: #### L 503.6550, L501.0900, L500.3600, L503.6030, L509.1000, L100.0500, L506.1000 ####[facility] [address] [place], [address] GFR/1.73 sq M.predicted among non-blacks MDRD (S/P/Bld) [Vol rate/Area] 21 mL/min/{1.73_m2} Low >60 [facility] Comment on above: Result Comment: Non- GFR Calc Performed By: #### L 503.6550, L501.0900, L500.3600, L503.6030, L509.1000, L100.0500, L506.1000 ####[facility] [address] [place], [address] Glucose [Mass/Vol] 271 mg/dL High 74-106 [facility] Comment on above: Result Comment: Gluc ose result greater than or equal to 200 mg/dLsuggests DIABETES MELLITUS per A.D.A. criteria. Performed By: #### L 503.6550, L501.0900, L500.3600, L503.6030, L509.1000, L100.0500, L506.1000 ####[facility] [address] [place], [address] Phosphate [Mass/Vol] 3.4 mg/dL Normal 2.5-4.9 [facility] Comment on above: Performed By: #### L 503.6550, L501.0900, L500.3600, L503.6030, L509.1000, L100.0500, L506.1000 ####[facility] [address] [place], [address] Potassium [Moles/Vol] 4.6 mmol/L Normal 3.5-5.1 [facility] Comment on above: Performed By: #### L 503.6550, L501.0900, L500.3600, L503.6030, L509.1000, L100.0500, L506.1000 ####[facility] [address] [place], [address] Sodium [Moles/Vol] 134 mmol/L Low 136-145 [facility] Comment on above: Performed By: #### L 503.6550, L501.0900, L500.3600, L503.6030, L509.1000, L100.0500, L506.1000 ####[facility] [address] [place], [address] Urea nitrogen [Mass/Vol] 38 mg/dL High 7-18 [facility] Comment on above: Performed By: #### L 503.6550, L501.0900, L500.3600, L503.6030, L509.1000, L100.0500, L506.1000 ####[facility] [address] [place], [address] Urinalysis, Completeon 03-25 EPI,SQUAMOUS 0-5 SEEN Normal 5-10 [facility] Comment on above: Order Comment: UA W ITH MICROSCOPIC PER DR BLANCO IN LAB FROM [facility], [facility] Performed By: #### L 400.0001, ####[facility] [address] [place], [address] WBC 0-5 SEEN Normal 0-5 [facility] Comment on above: Order Comment: UA W ITH MICROSCOPIC PER DR BLANCO IN LAB FROM [facility], [facility] Performed By: #### L 400.0001, M1.2199 ####[facility] [address] [place], [address] BILIRUBIN URINE Negative Normal Negative [facility] Comment on above: Order Comment: UAC W ITH MICROSCOPIC PER DR BLANCO IN LAB FROM [facility], [facility] Performed By: #### L 400.0001, .2199 ####[facility] [address] [place], [address] Clarity (U) Clear Normal Clear [facility] Comment on above: Order Comment: UAC W ITH MICROSCOPIC PER DR BLANCO IN LAB FROM [facility], [facility] Performed By: #### L 400.0001, .2199 ####[facility] [address] [place], [address] Color (U) Straw Normal Yellow [facility] Comment on above: Order Comment: UA W ITH MICROSCOPIC PER DR BLANCO IN LAB FROM [facility], [facility] Performed By: #### L 400.0001, ####[facility] [address] [place], [address] GLUCOSE, UR 1000 mg/dl Abnormal Normal [facility] Comment on above: Order Comment: UA W ITH MICROSCOPIC PER DR BLANCO IN LAB FROM [facility], [facility] Performed By: #### L 400.0001, ####[facility] [address] [place], [address] KETONE UR Negative Normal Negative [facility] Comment on above: Order Comment: UA W ITH MICROSCOPIC PER DR BLANCO IN LAB FROM [facility], [facility] Performed By: #### L 400.0001, ####[facility] [address] [place], [address] LEUK ESTERASE 25 /ul Abnormal Negative [facility] Comment on above: Order Comment: UAC W ITH MICROSCOPIC PER DR BLANCO IN LAB FROM [facility], [facility] Performed By: #### L 400.0001, ####[facility] [address] [place], [address] Nitrite Ql (U) Negative Normal Negative [facility] Comment on above: Order Comment: UAC W ITH MICROSCOPIC PER DR BLANCO IN LAB FROM [facility], [facility] Performed By: #### L 400.0001, ####[facility] [address] [place], [address] OCCULT BLOOD-UR Negative Normal Negative [facility] Comment on above: Order Comment: [facility] ITH MICROSCOPIC PER DR BLANCO IN LAB FROM [facility], [facility] Performed By: #### L 400.0001, ####[facility] [address] [place], [address] pH UR 5.0 Normal 5.0 - 8.0 [facility] Comment on above: Order Comment: [facility] W ITH MICROSCOPIC PER DR BLANCO IN LAB FROM [facility], [facility] Performed By: #### L 400.0001, ####[facility] [address] [place], [address] PROT DIPSTX 15 mg/dl Abnormal Negative [facility] Comment on above: Order Comment: [facility] ITH MICROSCOPIC PER DR BLANCO IN LAB FROM [facility], [facility] Performed By: #### L 400.0001, ####[facility] [address] [place], [address] SP.GR. DIPSTX 1.010 Normal 1.002-1.030 [facility] Comment on above: Order Comment: [facility] ITH MICROSCOPIC PER DR BLANCO IN LAB FROM [facility], [facility] Performed By: #### L 400.0001, ####[facility] [address] [place], [address] UROBILI Normal Normal Normal [facility] Comment on above: Order Comment: [facility] W ITH MICROSCOPIC PER DR BLANCO IN LAB FROM [facility], [facility] Performed By: #### L 400.0001, ####[facility] [address] [place], [address] BACTERIA 0 SEEN Normal None Seen [facility] Comment on above: Order Comment: [facility] W ITH MICROSCOPIC PER DR BLANCO IN LAB FROM [facility], [facility] Performed By: #### L 400.0001, M1.0 ####[facility] [address] [place], [place], [id number] Mucus Ql (Urine sed) 0 SEEN Normal [facility] Comment on above: Order Comment: [facility] W ITH MICROSCOPIC PER DR BLANCO IN LAB FROM [facility], [facility] Performed By: #### L 400.0001, M1.0 ####[facility] [address] [place], [address] RBC 0 SEEN Normal 0-5 [facility] Comment on above: Order Comment: [facility] W ITH MICROSCOPIC PER DR BLANCO IN LAB FROM [facility], [facility] Performed By: #### L 400.0001, M1.2199 ####[facility] [address] [place], [place], [id number] Vitamin D,25 Hydroxyon 03-25 Vitamin D 25-OH 26.5 ng/mL Normal [facility] Comment on above: Result Comment: Maryann min D 25(OH) Status Range Deficiency <20 ng/mL (50nmol/L) Insufficiency 20 - 30 ng/mL (50 - 75 nmol/L) Sufficiency 30 - 100 ng/mL (75 - 250 nmol/L) Toxicity >100 ng/mL (>250 nmol/L) Performed By: #### L 503.6550, L501.0900, L500.3600, L503.6030, L509.1000, L100.0500, L506.1000 ####[facility] [address] [place], [place], [address] Rita 02-26-2024 VIPIN Telephone ([facility]) -------- VAL ERICKSON ([id number]) 1945 F Date Time Provider Department 02/26/24 TESSA BROCK [facility] During your visit today, we recorded the following information about you: Tessa Brock RPh 02/26/2024 2:48 PM Signed Called patient for scheduled pharmacy phone follow up; unable to reach after multiple attempts. Left with phone number to reschedule appointment. Tessa Brock, PharmD, BCACP Primary Care Clinical [employer] Allergies As of Date: 02/26/2024 Noted Allergy Reaction RYBELSUS (SEMAGLUTIDE) 07/10/2023 5 - Intolerance Comments: Uncontrollable indigestion LEVAQUIN (LEVOFLOXACIN) 12/29/2004 Comments: itching,diarrhea,dausea, burning skin SEASONAL ALLERGIES 08/19/2014 14 - Other: See Comments Comments: Sinus SULFA (SULFONAMIDE ANTIBIOTICS) 12/29/2004 Comments: rash and hives Date Reviewed: 01/15/2024 Reviewed by: Tessa Brock [facility] - Fully Assessed Reason for Visit: Missed Appointment [1304] Prescriptions as of 02/27/2024 - insulin glargine (LANTUS SOLOSTAR U-100 INSULIN) 100 unit/mL (3 mL) Inject 60 Units subcutaneously daily at bedtime. - furosemide (LASIX) 20 mg tablet Take 1 tablet by mouth once daily. Take an extra 20 mg tablet daily as needed - Insulin [place], Disposable, 29 gauge x 1/2 Use once daily as directed. Dx E11.29 - venlafaxine ER (EFFEXOR XR) 75 mg 24 hr capsule Take 1 capsule by mouth once daily. - gabapentin (NEURONTIN) 300 mg capsule Take 1 capsule by mouth two times a day for 180 days. - empagliflozin (JARDIANCE) 10 mg tablet Take 1 tablet by mouth once daily. Prescribed by ballistics teacher - calcitriol (ROCALTROL) 0.5 mcg capsule Take 0.5 mcg by mouth. - clotrimazole (LOTRIMIN) 1 % cream Apply to affected area. - lidocaine (SALONPAS) 4 % patch Apply 1 Patch as directed. - simvastatin (ZOCOR) 40 mg tablet Take 1 tablet by mouth daily at bedtime. For cholesterol. - hydrALAZINE (APRESOLINE) 25 mg tablet Take 25 mg by mouth three times a day. - metoprolol succinate ER (TOPROL XL) 50 mg 24 hr tablet Take 1 tablet by mouth once daily. Per Dr. Yulia Antoine, cardiology. - utenbpowatk-kljkyxvhs-sx lanter (TRELEGY ELLIPTA) 100-62.5-25 mcg inhalation powder Inhale 1 Puff as instructed once daily. - docusate sodium (COLACE) 100 mg capsule Take 1 capsule by mouth as needed. - melatonin 5 mg tablet Take 2 tablets by mouth. - senna (SENOKOT) 8.6 mg tab Take 1 tablet by mouth as needed. - Vit C-Vit W-Fsvhff-LsNk-Lutein (PRESERVISION LUTEIN) 226 mg-200 unit -5 mg-0.8 mg cap Take 1 capsule by mouth once daily. - COMPOUNDED PRESCRIPTION Take 1 tablet by mouth twice daily. Plexus Bio-5 (Probiotic) - blood sugar diagnostic (ActionsUCH ULTRA TEST) test strip Test blood sugar(s) 2 times daily. - epoetin zari (PROCRIT,EPOGEN) 10,000 unit/mL injection Inject 10,000 Units subcutaneously q 4 WEEKS. 12,000 Units every two weeks. 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 Normal [facility] HH, Hemoglobin AND Hematocri ton 02-26-2024 Hematocrit (Bld) [Volume fraction] 35.7 % Low 37-47 [facility] Comment on above: Performed By: #### L 100.0600, L500.3600 ####[facility] [address] [place], [place], [id number] Hemoglobin (Bld) [Mass/Vol] 12.0 g/dL Normal 12.0-15.0 [facility] Comment on above: Performed By: #### L 100.0600, L500.3600 ####[facility] [address] [place], [address] Renal Profileon 02-26-2024 Albumin [Mass/Vol] 3.5 g/dL Normal 3.2-5.0 [facility] Comment on above: Performed By: #### L 100.0600, L500.3600 ####[facility] [address] [place], [address] BUN/CRE 17.3 RATIO Normal 10-20 [facility] Comment on above: Performed By: #### L 100.0600, L500.3600 ####[facility] [address] [place], [address] CA,Total 9.7 mg/dL Normal 8.5-10.1 [facility] Comment on above: Performed By: #### L 100.0600, L500.3600 ####[facility] [address] [place], [address] Chloride [Moles/Vol] 105 mmol/L Normal 98-107 [facility] Comment on above: Performed By: #### L 100.0600, L500.3600 ####[facility] [address] [place], [address] CO2 [Moles/Vol] 25.0 mmol/L Normal 21.0-32.0 [facility] Comment on above: Performed By: #### L 100.0600, L500.3600 ####[facility] [address] [place], [address] Creatinine [Mass/Vol] 2.48 mg/dL High 0.55-1.02 [facility] Comment on above: Result Comment: The validity of the calculated GFR GFRAA in patients over70 years has not been determined. Clinical correlation isessential. Performed By: #### L 100.0600, L500.3600 ####[facility] [address] [place], [address] EST GFR - AA 24 mL/min Low >60 [facility] Comment on above: Result Comment: Afri can Citizen [place] GFR Calc Performed By: #### L 100.0600, L500.3600 ####[facility] [address] [place], [address] GFR/1.73 sq M.predicted among non-blacks MDRD (S/P/Bld) [Vol rate/Area] 20 mL/min/{1.73_m2} Low >60 [facility] Comment on above: Result Comment: Non- GFR Calc Performed By: #### L 100.0600, L500.3600 ####[facility] [address] [place], [address] Glucose [Mass/Vol] 210 mg/dL High 74-106 [facility] Comment on above: Result Comment: Gluc ose result greater than or equal to 200 mg/dLsuggests DIABETES MELLITUS per A.D.A. criteria. Performed By: #### L 100.0600, L500.3600 ####[facility] [address] [place], [address] Phosphate [Mass/Vol] 3.0 mg/dL Normal 2.5-4.9 [facility] Comment on above: Performed By: #### L 100.0600, L500.3600 ####[facility] [address] [place], [address] Potassium [Moles/Vol] 3.9 mmol/L Normal 3.5-5.1 [facility] Comment on above: Performed By: #### L 100.0600, L500.3600 ####[facility] [address] [place], [address] Sodium [Moles/Vol] 137 mmol/L Normal 136-145 [facility] Comment on above: Performed By: #### L 100.0600, L500.3600 ####[facility] [address] [place], [address] Urea nitrogen [Mass/Vol] 43 mg/dL High 7-18 [facility] Comment on above: Performed By: #### L 100.0600, L500.3600 ####[facility] [address] [place], [address] HH, Hemoglobin AND Hematocri ton 01-29-2024 Hematocrit (Bld) [Volume fraction] 35.5 % Low 37-47 [facility] Comment on above: Performed By: #### L 100.0600, L500.3600 ####[facility] [address] [place], [address] Hemoglobin (Bld) [Mass/Vol] 11.5 g/dL Low 12.0-15.0 [facility] Comment on above: Performed By: #### L 100.0600, L500.3600 ####[facility] [address] [place], [address] Renal Profileon 01-29-2024 Albumin [Mass/Vol] 3.3 g/dL Normal 3.2-5.0 [facility] Comment on above: Performed By: #### L 100.0600, L500.3600 ####[facility] [address] [place], [address] BUN/CRE 19.1 RATIO Normal 10-20 [facility] Comment on above: Performed By: #### L 100.0600, L500.3600 ####[facility] [address] [place], [address] CA,Total 9.3 mg/dL Normal 8.5-10.1 [facility] Comment on above: Performed By: #### L 100.0600, L500.3600 ####[facility] [address] [place], [address] Chloride [Moles/Vol] 105 mmol/L Normal 98-107 [facility] Comment on above: Performed By: #### L 100.0600, L500.3600 ####[facility] [address] [place], [address] CO2 [Moles/Vol] 22.0 mmol/L Normal 21.0-32.0 [facility] Comment on above: Performed By: #### L 100.0600, L500.3600 ####[facility] [address] [place], [address] Creatinine [Mass/Vol] 2.36 mg/dL High 0.55-1.02 [facility] Comment on above: Result Comment: The validity of the calculated GFR GFRAA in patients over70 years has not been determined. Clinical correlation isessential. Performed By: #### L 100.0600, L500.3600 ####[facility] [address] [place], [address] EST GFR - AA 26 mL/min Low >60 [facility] Comment on above: Result Comment: Afri can Citizen [place] GFR Calc Performed By: #### L 100.0600, L500.3600 ####[facility] [address] [place], [address] GFR/1.73 sq M.predicted among non-blacks MDRD (S/P/Bld) [Vol rate/Area] 21 mL/min/{1.73_m2} Low >60 [facility] Comment on above: Result Comment: Non- GFR Calc Performed By: #### L 100.0600, L500.3600 ####[facility] [address] [place], [address] Glucose [Mass/Vol] 281 mg/dL High 74-106 [facility] Comment on above: Result Comment: Gluc ose result greater than or equal to 200 mg/dLsuggests DIABETES MELLITUS per A.D.A. criteria. Performed By: #### L 100.0600, L500.3600 ####[facility] [address] [place], [address] Phosphate [Mass/Vol] 2.8 mg/dL Normal 2.5-4.9 [facility] Comment on above: Performed By: #### L 100.0600, L500.3600 ####[facility] [address] [place], [address] Potassium [Moles/Vol] 4.0 mmol/L Normal 3.5-5.1 [facility] Comment on above: Performed By: #### L 100.0600, L500.3600 ####[facility] [address] [place], [address] Sodium [Moles/Vol] 136 mmol/L Normal 136-145 [facility] Comment on above: Performed By: #### L 100.0600, L500.3600 ####[facility] [address] [place], [address] Urea nitrogen [Mass/Vol] 45 mg/dL High 7-18 [facility] Comment on above: Performed By: #### L 100.0600, L500.3600 ####[facility] [address] [place], [address] HH, Hemoglobin AND Hematocri ton 01-01-2024 Hematocrit (Bld) [Volume fraction] 33.2 % Low 37-47 [facility] Comment on above: Performed By: #### L 100.0600, L500.3600, L503.6250 ####[facility] [address] [place], [address] Hemoglobin (Bld) [Mass/Vol] 10.9 g/dL Low 12.0-15.0 [facility] Comment on above: Performed By: #### L 100.0600, L500.3600, L503.6150 ####[facility] [address] [place], [address] Ironon 01-01-2024 Iron [Mass/Vol] 73 ug/dL Normal 50-170 [facility] Comment on above: Performed By: #### L 100.0600, L500.3600, L503.6150 ####[facility] [address] [place], [address] Renal Profileon 01-01-2024 Albumin [Mass/Vol] 3.3 g/dL Normal 3.2-5.0 [facility] Comment on above: Performed By: #### L 100.0600, L500.3600, L503.6150 ####[facility] [address] [place], [address] BUN/CRE 21.6 RATIO High 10-20 [facility] Comment on above: Performed By: #### L 100.0600, L500.3600, L503.6150 ####[facility] [address] [place], [address] CA,Total 9.7 mg/dL Normal 8.5-10.1 [facility] Comment on above: Performed By: #### L 100.0600, L500.3600, L503.6150 ####[facility] [address] [place], [address] Chloride [Moles/Vol] 105 mmol/L Normal 98-107 [facility] Comment on above: Performed By: #### L 100.0600, L500.3600, L503.6150 ####[facility] [address] [place], [address] CO2 [Moles/Vol] 24.0 mmol/L Normal 21.0-32.0 [facility] Comment on above: Performed By: #### L 100.0600, L500.3600, L503.6150 ####[facility] [address] [place], [address] Creatinine [Mass/Vol] 2.27 mg/dL High 0.55-1.02 [facility] Comment on above: Result Comment: The validity of the calculated GFR GFRAA in patients over70 years has not been determined. Clinical correlation isessential. Performed By: #### L 100.0600, L500.3600, L503.6150 ####[facility] [address] [place], [address] EST GFR - AA 27 mL/min Low >60 [facility] Comment on above: Result Comment: Afri can Citizen [place] GFR Calc Performed By: #### L 100.0600, L500.3600, L503.6150 ####[facility] [address] [place], [address] GFR/1.73 sq M.predicted among non-blacks MDRD (S/P/Bld) [Vol rate/Area] 22 mL/min/{1.73_m2} Low >60 [facility] Comment on above: Result Comment: Non- GFR Calc Performed By: #### L 100.0600, L500.3600, L503.6150 ####[facility] [address] [place], [address] Glucose [Mass/Vol] 185 mg/dL High 74-106 [facility] Comment on above: Result Comment: Fast ing Glucose result greater than or equal to 126 mg/dLsuggests DIABETES MELLITUS per A.D.A. criteria. Performed By: #### L 100.0600, L500.3600, L503.6150 ####[facility] [address] [place], [address] Phosphate [Mass/Vol] 4.7 mg/dL Normal 2.5-4.9 [facility] Comment on above: Performed By: #### L 100.0600, L500.3600, L503.6150 ####[facility] [address] [place], [address] Potassium [Moles/Vol] 4.1 mmol/L Normal 3.5-5.1 [facility] Comment on above: Performed By: #### L 100.0600, L500.3600, L503.6150 ####[facility] [address] [place], [address] Sodium [Moles/Vol] 137 mmol/L Normal 136-145 [facility] Comment on above: Performed By: #### L 100.0600, L500.3600, L503.6150 ####[facility] [address] [place], [address] Urea nitrogen [Mass/Vol] 49 mg/dL High 7-18 [facility] Comment on above: Performed By: #### L 100.0600, L500.3600, L503.6150 ####[facility] [address] [place], [address] HH, Hemoglobin AND Hematocri ton 12-09-2023 Hematocrit (Bld) [Volume fraction] 36.1 % Low 37-47 [facility] Comment on above: Performed By: #### L 100.0600, L500.3600 ####[facility] [address] [place], [address] Hemoglobin (Bld) [Mass/Vol] 11.4 g/dL Low 12.0-15.0 [facility] Comment on above: Performed By: #### L 100.0600, L500.3600 ####[facility] [address] [place], [address] Renal Profileon 12-09-2023 Albumin [Mass/Vol] 3.0 g/dL Low 3.2-5.0 [facility] Comment on above: Performed By: #### L 100.0600, L500.3600 ####[facility] [address] [place], [address] BUN/CRE 17.5 RATIO Normal 10-20 [facility] Comment on above: Performed By: #### L 100.0600, L500.3600 ####[facility] [address] [place], [address] CA,Total 9.8 mg/dL Normal 8.5-10.1 [facility] Comment on above: Performed By: #### L 100.0600, L500.3600 ####[facility] [address] [place], [address] Chloride [Moles/Vol] 102 mmol/L Normal 98-107 [facility] Comment on above: Performed By: #### L 100.0600, L500.3600 ####[facility] [address] [place], [address] CO2 [Moles/Vol] 24.0 mmol/L Normal 21.0-32.0 [facility] Comment on above: Performed By: #### L 100.0600, L500.3600 ####[facility] [address] [place], [address] Creatinine [Mass/Vol] 2.34 mg/dL High 0.55-1.02 [facility] Comment on above: Result Comment: The validity of the calculated GFR GFRAA in patients over70 years has not been determined. Clinical correlation isessential. Performed By: #### L 100.0600, L500.3600 ####[facility] [address] [place], [address] EST GFR - AA 26 mL/min Low >60 [facility] Comment on above: Result Comment: Afri can Citizen [place] GFR Calc Performed By: #### L 100.0600, L500.3600 ####[facility] [address] [place], [address] GFR/1.73 sq M.predicted among non-blacks MDRD (S/P/Bld) [Vol rate/Area] 21 mL/min/{1.73_m2} Low >60 [facility] Comment on above: Result Comment: Non- GFR Calc Performed By: #### L 100.0600, L500.3600 ####[facility] [address] [place], [address] Glucose [Mass/Vol] 196 mg/dL High 74-106 [facility] Comment on above: Result Comment: Fast ing Glucose result greater than or equal to 126 mg/dLsuggests DIABETES MELLITUS per A.D.A. criteria. Performed By: #### L 100.0600, L500.3600 ####[facility] [address] [place], [address] Phosphate [Mass/Vol] 3.5 mg/dL Normal 2.5-4.9 [facility] Comment on above: Performed By: #### L 100.0600, L500.3600 ####[facility] [address] [place], [address] Potassium [Moles/Vol] 4.3 mmol/L Normal 3.5-5.1 [facility] Comment on above: Performed By: #### L 100.0600, L500.3600 ####[facility] [address] [place], [address] Sodium [Moles/Vol] 137 mmol/L Normal 136-145 [facility] Comment on above: Performed By: #### L 100.0600, L500.3600 ####[facility] [address] [place], [address] Urea nitrogen [Mass/Vol] 41 mg/dL High 7-18 [facility] Comment on above: Performed By: #### L 100.0600, L500.3600 ####[facility] [address] [place], [address] Basic metabolic 2000 panelon 11-26-2023 Anion gap [Moles/Vol] 15 mmol/L Normal 10-20 [facility] Comment on above: Performed By: #### 8 9577-1 #### AKOSUA SEGOVIA ([id number]) [facility] ([facility]) [address] [place] [address] Calcium [Mass/Vol] 9.6 mg/dL Normal 8.6-10.3 [facility] Comment on above: Performed By: #### 8 9577-1 #### AKOSUA SEGOVIA ([id number]) [facility] ([facility]) [address] [place] [address] Chloride [Moles/Vol] 100 mmol/L Normal 98-107 [facility] Comment on above: Performed By: #### 8 9577-1 #### AKOSUA SEGOVIA ([id number]) [facility] ([facility]) [facility] [place] [address] CO2 [Moles/Vol] 24 mmol/L Normal 21-32 [facility] Comment on above: Performed By: #### 8 9577-1 #### AKOSUA SEGOVIA ([id number]) [facility] ([facility]) [address] [place] [address] Creatinine [Mass/Vol] 2.26 mg/dL High 0.50-1.05 [facility] Comment on above: Performed By: #### 8 9577-1 #### AKOSUA SEGOVIA ([id number]) [facility] ([facility]) [address] [place] [address] Glomerular filtration rate/1.73 sq M.predicted 22 mL/min/1.73m*2 Low >60 [facility] Comment on above: Result Comment: Calc ulations of estimated GFR are performed using the 2020 CKD-EPI Study Refit equation without the race variable for the IDMS-Traceable creatinine methods. https://jasn.asnjournals.org/content//ASN.280135 6069 Performed By: #### 8 9577-1 #### AKOSUA SEGOVIA ([id number]) [facility] ([facility]) [address] [place] [address] Glucose [Mass/Vol] 73 mg/dL Low 74-99 [facility] Comment on above: Performed By: #### 8 9577-1 #### AKOSUA SEGOVIA ([id number]) [facility] ([facility]) [address] [place] [address] Potassium [Moles/Vol] 4.0 mmol/L Normal 3.5-5.3 [facility] Comment on above: Performed By: #### 8 9577-1 #### AKOSUA SEGOVIA ([id number]) [facility] ([facility]) [address] [place] [address] Sodium [Moles/Vol] 135 mmol/L Low 136-145 [facility] Comment on above: Performed By: #### 8 9577-1 #### AKOSUA SEGOVIA ([id number]) [facility] ([facility]) [address] [place] [address] Urea nitrogen [Mass/Vol] 48 mg/dL High 6-23 [facility] Comment on above: Performed By: #### 8 9577-1 #### AKOSUA SEGOVIA ([id number]) [facility] ([facility]) [address] [place] [address] HH, Hemoglobin AND Hematocri ton 11-06-2023 Hematocrit (Bld) [Volume fraction] 37.1 % Normal 37-47 [facility] Comment on above: Performed By: #### L 100.0600, L500.3600 ####[facility] [address] [place], [place], [address] Hemoglobin (Bld) [Mass/Vol] 11.6 g/dL Low 12.0-15.0 [facility] Comment on above: Performed By: #### L 100.0600, L500.3600 ####[facility] [address] [place], [address] Renal Profileon 11-06-2023 Albumin [Mass/Vol] 3.3 g/dL Normal 3.2-5.0 [facility] Comment on above: Performed By: #### L 100.0600, L500.3600 ####[facility] [address] [place], [address] BUN/CRE 17.8 RATIO Normal 10-20 [facility] Comment on above: Performed By: #### L 100.0600, L500.3600 ####[facility] [address] [place], [address] CA,Total 9.9 mg/dL Normal 8.5-10.1 [facility] Comment on above: Performed By: #### L 100.0600, L500.3600 ####[facility] [address] [place], [address] Chloride [Moles/Vol] 106 mmol/L Normal 98-107 [facility] Comment on above: Performed By: #### L 100.0600, L500.3600 ####[facility] [address] [place], [address] CO2 [Moles/Vol] 25.0 mmol/L Normal 21.0-32.0 [facility] Comment on above: Performed By: #### L 100.0600, L500.3600 ####[facility] [address] [place], [address] Creatinine [Mass/Vol] 2.30 mg/dL High 0.55-1.02 [facility] Comment on above: Result Comment: The validity of the calculated GFR GFRAA in patients over70 years has not been determined. Clinical correlation isessential. Performed By: #### L 100.0600, L500.3600 ####[facility] [address] [place], [address] EST GFR - AA 26 mL/min Low >60 [facility] Comment on above: Result Comment: Afri can Citizen [place] GFR Calc Performed By: #### L 100.0600, L500.3600 ####[facility] [address] [place], [address] GFR/1.73 sq M.predicted among non-blacks MDRD (S/P/Bld) [Vol rate/Area] 22 mL/min/{1.73_m2} Low >60 [facility] Comment on above: Result Comment: Non- GFR Calc Performed By: #### L 100.0600, L500.3600 ####[facility] [address] [place], [address] Glucose [Mass/Vol] 144 mg/dL High 74-106 [facility] Comment on above: Result Comment: Fast ing Glucose result greater than or equal to 126 mg/dLsuggests DIABETES MELLITUS per A.D.A. criteria. Performed By: #### L 100.0600, L500.3600 ####[facility] [address] [place], [address] Phosphate [Mass/Vol] 3.9 mg/dL Normal 2.5-4.9 [facility] Comment on above: Performed By: #### L 100.0600, L500.3600 ####[facility] [address] [place], [address] Potassium [Moles/Vol] 4.3 mmol/L Normal 3.5-5.1 [facility] Comment on above: Performed By: #### L 100.0600, L500.3600 ####[facility] [address] [place], [address] Sodium [Moles/Vol] 137 mmol/L Normal 136-145 [facility] Comment on above: Performed By: #### L 100.0600, L500.3600 ####[facility] [address] [place], [address] Urea nitrogen [Mass/Vol] 41 mg/dL High 7-18 [facility] Comment on above: Performed By: #### L 100.0600, L500.3600 ####[facility] [address] [place], [address] CBC-Complete Blood Cnt No Di ffon 10-09-2023 Erythrocyte distribution width (RBC) [Ratio] 14.3 % Normal 11.6-14.6 [facility] Comment on above: Order Comment: DR MARCELO ORDERED RENAL, CBC, PTH, VITD, PROCRE URINE,DR MANUEL ORDERED CBC,CMP,LIPID,MIACREA URINE,A1C, Performed By: #### L 501.0900, L502.0250, L503.6030, L501.2300, L501.9985, L506.1000, L100.0500, L509.1000, L500.4050, L503.6550, L500.4100 ####[facility] [address] [place], [address] Hematocrit (Bld) [Volume fraction] 34.2 % Low 37-47 [facility] Comment on above: Order Comment: DR MARCELO ORDERED RENAL, CBC, PTH, VITD, PROCRE URINE,DR MANUEL ORDERED CBC,CMP,LIPID,MIACREA URINE,A1C, Performed By: #### L 501.0900, L502.0250, L503.6030, L501.2300, L501.9985, L506.1000, L100.0500, L509.1000, L500.4050, L503.6550, L500.4100 ####[facility] [address] [place], [address] Hemoglobin (Bld) [Mass/Vol] 10.8 g/dL Low 12.0-15.0 [facility] Comment on above: Order Comment: DR MARCELO ORDERED RENAL, CBC, PTH, VITD, PROCRE URINE,DR MANUEL ORDERED CBC,CMP,LIPID,MIACREA URINE,A1C, Performed By: #### L 501.0900, L502.0250, L503.6030, L501.2300, L501.9985, L506.1000, L100.0500, L509.1000, L500.4050, L503.6550, L500.4100 ####[facility] [address] [place], [address] MCH (RBC) [Entitic mass] 30.4 pg Normal 27.0-32.0 [facility] Comment on above: Order Comment: DR MARCELO ORDERED RENAL, CBC, PTH, VITD, PROCRE URINE,DR MANUEL ORDERED CBC,CMP,LIPID,MIACREA URINE,A1C, Performed By: #### L 501.0900, L502.0250, L503.6030, L501.2300, L501.9985, L506.1000, L100.0500, L509.1000, L500.4050, L503.6550, L500.4100 ####[facility] [address] [place], [address] MCHC (RBC) [Mass/Vol] 31.6 g/dL Low 32-36 [facility] Comment on above: Order Comment: DR MARCELO ORDERED RENAL, CBC, PTH, VITD, PROCRE URINE,DR MANUEL ORDERED CBC,CMP,LIPID,MIACREA URINE,A1C, Performed By: #### L 501.0900, L502.0250, L503.6030, L501.2300, L501.9985, L506.1000, L100.0500, L509.1000, L500.4050, L503.6550, L500.4100 ####[facility] [address] [place], [address] MCV (RBC) [Entitic vol] 96.3 fL Normal 81-99 [facility] Comment on above: Order Comment: DR MARCELO ORDERED RENAL, CBC, PTH, VITD, PROCRE URINE,DR MANUEL ORDERED CBC,CMP,LIPID,MIACREA URINE,A1C, Performed By: #### L 501.0900, L502.0250, L503.6030, L501.2300, L501.9985, L506.1000, L100.0500, L509.1000, L500.4050, L503.6550, L500.4100 ####[facility] [address] [place], [address] Platelet mean volume (Bld) [Entitic vol] 9.1 fL Normal 6.2-12.0 [facility] Comment on above: Order Comment: DR MARCELO ORDERED RENAL, CBC, PTH, VITD, PROCRE URINE,DR MANUEL ORDERED CBC,CMP,LIPID,MIACREA URINE,A1C, Performed By: #### L 501.0900, L502.0250, L503.6030, L501.2300, L501.9985, L506.1000, L100.0500, L509.1000, L500.4050, L503.6550, L500.4100 ####[facility] [address] [place], [address] Platelets (Bld) [#/Vol] 210 10*3/uL Normal 150-450 [facility] Comment on above: Order Comment: DR MARCELO ORDERED RENAL, CBC, PTH, VITD, PROCRE URINE,DR MANUEL ORDERED CBC,CMP,LIPID,MIACREA URINE,A1C, Performed By: #### L 501.0900, L502.0250, L503.6030, L501.2300, L501.9985, L506.1000, L100.0500, L509.1000, L500.4050, L503.6550, L500.4100 ####[facility] [address] [place], [address] RBC (Bld) [#/Vol] 3.55 10*6/uL Low 4.2-5.4 [facility] Comment on above: Order Comment: DR MARCELO ORDERED RENAL, CBC, PTH, VITD, PROCRE URINE,DR MANUEL ORDERED CBC,CMP,LIPID,MIACREA URINE,A1C, Performed By: #### L 501.0900, L502.0250, L503.6030, L501.2300, L501.9985, L506.1000, L100.0500, L509.1000, L500.4050, L503.6550, L500.4100 ####[facility] [address] [place], [address] RDW SD 50.8 fl High 35.1-43.9 [facility] Comment on above: Order Comment: DR MARCELO ORDERED RENAL, CBC, PTH, VITD, PROCRE URINE,DR MANUEL ORDERED CBC,CMP,LIPID,MIACREA URINE,A1C, Performed By: #### L 501.0900, L502.0250, L503.6030, L501.2300, L501.9985, L506.1000, L100.0500, L509.1000, L500.4050, L503.6550, L500.4100 ####[facility] [address] [place], [address] WBC (Bld) [#/Vol] 7.9 10*3/uL Normal 4.4-11.0 [facility] Comment on above: Order Comment: DR MARCELO ORDERED RENAL, CBC, PTH, VITD, PROCRE URINE,DR MANUEL ORDERED CBC,CMP,LIPID,MIACREA URINE,A1C, Performed By: #### L 501.0900, L502.0250, L503.6030, L501.2300, L501.9985, L506.1000, L100.0500, L509.1000, L500.4050, L503.6550, L500.4100 ####[facility] [address] [place], [address] Rita 10-09-2023 CNPN Telephone (INTMWS) -------- GEORGINAVAL ([id number]) 1945 F Date Time Provider Department 10/09/23 NEEL TURPIN INTMWS During your visit today, we recorded the following information about you: Erika Barahona RN 10/09/2023 2:05 PM Signed DANNY Munguia @ [facility] calling with request for order to extend PT. Physical Therapy will see patient 1 x/week for four more weeks for gait, mobility and balance. If agree, may leave message on #[phone]. SYLVAIN Brice Victor H, MD 10/10/2023 9:56 AM Signed Amilcar PT extension. Paul Alcaraz MA 10/10/2023 10:01 AM Signed Ezra notified. Paul Alcaraz MA Allergies As of Date: 10/09/2023 Noted Allergy Reaction RYBELSUS (SEMAGLUTIDE) 07/10/2023 5 - Intolerance Comments: Uncontrollable indigestion LEVAQUIN (LEVOFLOXACIN) 12/29/2004 Comments: itching,diarrhea,dausea, burning skin SEASONAL ALLERGIES 08/19/2014 14 - Other: See Comments Comments: Sinus SULFA (SULFONAMIDE ANTIBIOTICS) 12/29/2004 Comments: rash and hives Date Reviewed: 09/23/2023 Reviewed by: Kacy Mary, VISUAL DISPLAY MANAGER.[employer] - Fully Assessed Reason for Visit: PT Order [Other] Prescriptions as of 10/10/2023 - venlafaxine ER (EFFEXOR XR) 75 mg 24 hr capsule Take 1 capsule by mouth once daily. - gabapentin (NEURONTIN) 300 mg capsule Take 1 capsule by mouth two times a day for 180 days. - empagliflozin (JARDIANCE) 10 mg tablet Take 1 tablet by mouth once daily. Prescribed by ballistics teacher - insulin glargine (LANTUS SOLOSTAR U-100 INSULIN) 100 unit/mL (3 mL) Inject 48 Units subcutaneously daily at bedtime. - furosemide (LASIX) 20 mg tablet Take 1 tablet by mouth once daily. Take an extra 20 mg tablet daily as needed - calcitriol (ROCALTROL) 0.5 mcg capsule Take 0.5 mcg by mouth. - clotrimazole (LOTRIMIN) 1 % cream Apply to affected area. - lidocaine (SALONPAS) 4 % patch Apply 1 Patch as directed. - simvastatin (ZOCOR) 40 mg tablet Take 1 tablet by mouth daily at bedtime. For cholesterol. - hydrALAZINE (APRESOLINE) 25 mg tablet Take 25 mg by mouth three times a day. - metoprolol succinate ER (TOPROL XL) 50 mg 24 hr tablet Take 1 tablet by mouth once daily. Per Dr. Yulia Antoine, cardiology. - Insulin [place], Disposable, 29 gauge x 1/2 Use once daily as directed. Dx E11.29 - efgcgxpzehy-nmvnuopah-bj lanter (TRELEGY ELLIPTA) 100-62.5-25 mcg inhalation powder Inhale 1 Puff as instructed once daily. - docusate sodium (COLACE) 100 mg capsule Take 1 capsule by mouth as needed. - melatonin 5 mg tablet Take 2 tablets by mouth. - senna (SENOKOT) 8.6 mg tab Take 1 tablet by mouth as needed. - Vit C-Vit Q-Swuvpg-KmWf-Lutein (PRESERVISION LUTEIN) 226 mg-200 unit -5 mg-0.8 [...] every two weeks. - Lancets (FREESTYLE LANCETS) [facility] Test twice daily 250.02 Problem List As Of Date 10/09/2023 Noted Resolved Essential hypertension [I10] Generalized osteoarthritis [...] 10/09/2016 06/17/2017 DDD (degenerative disc disease), thoracolumbar * (more content not included)... Normal [facility] Metabolic Prof ilon 10-09-2023 Albumin [Mass/Vol] 3.3 g/dL Normal 3.2-5.0 [facility] Comment on above: Order Comment: DR MARCELO ORDERED RENAL, CBC, PTH, VITD, PROCRE URINE,DR MANUEL ORDERED CBC,CMP,LIPID,MIACREA URINE,A1C, Performed By: #### L 501.0900, L502.0250, L503.6030, L501.2300, L501.9985, L506.1000, L100.0500, L509.1000, L500.4050, L503.6550, L500.4100 ####[facility] [address] [place], [address] Albumin/Globulin [Mass ratio] 0.9 {ratio} Normal 0.9-2.4 [facility] Comment on above: Order Comment: DR MARCELO ORDERED RENAL, CBC, PTH, VITD, PROCRE URINE,DR MANUEL ORDERED CBC,CMP,LIPID,MIACREA URINE,A1C, Performed By: #### L 501.0900, L502.0250, L503.6030, L501.2300, L501.9985, L506.1000, L100.0500, L509.1000, L500.4050, L503.6550, L500.4100 ####[facility] [address] [place], [address] ALK P 84 U/L Normal 45-117 [facility] Comment on above: Order Comment: DR MARCELO ORDERED RENAL, CBC, PTH, VITD, PROCRE URINE,DR MANUEL ORDERED CBC,CMP,LIPID,MIACREA URINE,A1C, Performed By: #### L 501.0900, L502.0250, L503.6030, L501.2300, L501.9985, L506.1000, L100.0500, L509.1000, L500.4050, L503.6550, L500.4100 ####[facility] [address] [place], [address] ALT [Catalytic activity/Vol] 40 U/L Normal 13-56 [facility] Comment on above: Order Comment: DR MARCELO ORDERED RENAL, CBC, PTH, VITD, PROCRE URINE,DR MANUEL ORDERED CBC,CMP,LIPID,MIACREA URINE,A1C, Performed By: #### L 501.0900, L502.0250, L503.6030, L501.2300, L501.9985, L506.1000, L100.0500, L509.1000, L500.4050, L503.6550, L500.4100 ####[facility] [address] [place], [address] AST [Catalytic activity/Vol] 23 U/L Normal 15-37 [facility] Comment on above: Order Comment: DR MARCELO ORDERED RENAL, CBC, PTH, VITD, PROCRE URINE,DR MANUEL ORDERED CBC,CMP,LIPID,MIACREA URINE,A1C, Performed By: #### L 501.0900, L502.0250, L503.6030, L501.2300, L501.9985, L506.1000, L100.0500, L509.1000, L500.4050, L503.6550, L500.4100 ####[facility] [address] [place], [address] Bilirubin [Mass/Vol] 0.30 mg/dL Normal 0.20-1.00 [facility] Comment on above: Order Comment: DR MARCELO ORDERED RENAL, CBC, PTH, VITD, PROCRE URINE,DR MANUEL ORDERED CBC,CMP,LIPID,MIACREA URINE,A1C, Result Comment: For patients on eltrombopag therapy, use of Dimension [place] TBIL is not recommended. Performed By: #### L 501.0900, L502.0250, L503.6030, L501.2300, L501.9985, L506.1000, L100.0500, L509.1000, L500.4050, L503.6550, L500.4100 ####[facility] [address] [place], [address] BUN/CRE 18.9 RATIO Normal 10-20 [facility] Comment on above: Order Comment: DR MARCELO ORDERED RENAL, CBC, PTH, VITD, PROCRE URINE,DR MANUEL ORDERED CBC,CMP,LIPID,MIACREA URINE,A1C, Performed By: #### L 501.0900, L502.0250, L503.6030, L501.2300, L501.9985, L506.1000, L100.0500, L509.1000, L500.4050, L503.6550, L500.4100 ####[facility] [id number] [place], [address] CA,Total 9.4 mg/dL Normal 8.5-10.1 [facility] Comment on above: Order Comment: DR MARCELO ORDERED RENAL, CBC, PTH, VITD, PROCRE URINE,DR MANUEL ORDERED CBC,CMP,LIPID,MIACREA URINE,A1C, Performed By: #### L 501.0900, L502.0250, L503.6030, L501.2300, L501.9985, L506.1000, L100.0500, L509.1000, L500.4050, L503.6550, L500.4100 ####[facility] [address] [place], [address] Chloride [Moles/Vol] 105 mmol/L Normal 98-107 [facility] Comment on above: Order Comment: DR MARCELO ORDERED RENAL, CBC, PTH, VITD, PROCRE URINE,DR MANUEL ORDERED CBC,CMP,LIPID,MIACREA URINE,A1C, Performed By: #### L 501.0900, L502.0250, L503.6030, L501.2300, L501.9985, L506.1000, L100.0500, L509.1000, L500.4050, L503.6550, L500.4100 ####[facility] [address] [place], [address] CO2 [Moles/Vol] 26.0 mmol/L Normal 21.0-32.0 [facility] Comment on above: Order Comment: DR MARCELO ORDERED RENAL, CBC, PTH, VITD, PROCRE URINE,DR MANUEL ORDERED CBC,CMP,LIPID,MIACREA URINE,A1C, Performed By: #### L 501.0900, L502.0250, L503.6030, L501.2300, L501.9985, L506.1000, L100.0500, L509.1000, L500.4050, L503.6550, L500.4100 ####[facility] [address] [place], [address] Creatinine [Mass/Vol] 2.44 mg/dL High 0.55-1.02 [facility] Comment on above: Order Comment: DR MARCELO ORDERED RENAL, CBC, PTH, VITD, PROCRE URINE,DR MANUEL ORDERED CBC,CMP,LIPID,MIACREA URINE,A1C, Result Comment: The validity of the calculated GFR GFRAA in patients over70 years has not been determined. Clinical correlation isessential. Performed By: #### L 501.0900, L502.0250, L503.6030, L501.2300, L501.9985, L506.1000, L100.0500, L509.1000, L500.4050, L503.6550, L500.4100 ####[facility] [address] [place], [address] EST GFR - AA 25 mL/min Low >60 [facility] Comment on above: Order Comment: DR MARCELO ORDERED RENAL, CBC, PTH, VITD, PROCRE URINE,DR MANUEL ORDERED CBC,CMP,LIPID,MIACREA URINE,A1C, Result Comment: Afri can Citizen [place] GFR Calc Performed By: #### L 501.0900, L502.0250, L503.6030, L501.2300, L501.9985, L506.1000, L100.0500, L509.1000, L500.4050, L503.6550, L500.4100 ####[facility] [address] [place], [address] GAP 8 Normal 5-15 [facility] Comment on above: Order Comment: DR MARCELO ORDERED RENAL, CBC, PTH, VITD, PROCRE URINE,DR MANUEL ORDERED CBC,CMP,LIPID,MIACREA URINE,A1C, Performed By: #### L 501.0900, L502.0250, L503.6030, L501.2300, L501.9985, L506.1000, L100.0500, L509.1000, L500.4050, L503.6550, L500.4100 ####[facility] [address] [place], [address] GFR/1.73 sq M.predicted among non-blacks MDRD (S/P/Bld) [Vol rate/Area] 20 mL/min/{1.73_m2} Low >60 [facility] Comment on above: Order Comment: DR MARCELO ORDERED RENAL, CBC, PTH, VITD, PROCRE URINE,DR MANUEL ORDERED CBC,CMP,LIPID,MIACREA URINE,A1C, Result Comment: Non- GFR Calc Performed By: #### L 501.0900, L502.0250, L503.6030, L501.2300, L501.9985, L506.1000, L100.0500, L509.1000, L500.4050, L503.6550, L500.4100 ####[facility] [address] [place], [address] Globulin (S) [Mass/Vol] 3.5 g/dL Normal 2.2-4.2 [facility] Comment on above: Order Comment: DR MARCELO ORDERED RENAL, CBC, PTH, VITD, PROCRE URINE,DR MANUEL ORDERED CBC,CMP,LIPID,MIACREA URINE,A1C, Performed By: #### L 501.0900, L502.0250, L503.6030, L501.2300, L501.9985, L506.1000, L100.0500, L509.1000, L500.4050, L503.6550, L500.4100 ####[facility] [address] [place], [address] Glucose [Mass/Vol] 133 mg/dL High 74-106 [facility] Comment on above: Order Comment: DR MARCELO ORDERED RENAL, CBC, PTH, VITD, PROCRE URINE,DR MANUEL ORDERED CBC,CMP,LIPID,MIACREA URINE,A1C, Result Comment: Fast ing Glucose result greater than or equal to 126 mg/dLsuggests DIABETES MELLITUS per A.D.A. criteria. Performed By: #### L 501.0900, L502.0250, L503.6030, L501.2300, L501.9985, L506.1000, L100.0500, L509.1000, L500.4050, L503.6550, L500.4100 ####[facility] [address] [place], [address] Potassium [Moles/Vol] 4.7 mmol/L Normal 3.5-5.1 [facility] Comment on above: Order Comment: DR MARCELO ORDERED RENAL, CBC, PTH, VITD, PROCRE URINE,DR MANUEL ORDERED CBC,CMP,LIPID,MIACREA URINE,A1C, Performed By: #### L 501.0900, L502.0250, L503.6030, L501.2300, L501.9985, L506.1000, L100.0500, L509.1000, L500.4050, L503.6550, L500.4100 ####[facility] [address] [place], [address] Sodium [Moles/Vol] 139 mmol/L Normal 136-145 [facility] Comment on above: Order Comment: DR MARCELO ORDERED RENAL, CBC, PTH, VITD, PROCRE URINE,DR MANUEL ORDERED CBC,CMP,LIPID,MIACREA URINE,A1C, Performed By: #### L 501.0900, L502.0250, L503.6030, L501.2300, L501.9985, L506.1000, L100.0500, L509.1000, L500.4050, L503.6550, L500.4100 ####[facility] [address] [place], [address] T PROT 6.8 g/dL Normal 6.4-8.2 [facility] Comment on above: Order Comment: DR MARCELO ORDERED RENAL, CBC, PTH, VITD, PROCRE URINE,DR MANUEL ORDERED CBC,CMP,LIPID,MIACREA URINE,A1C, Performed By: #### L 501.0900, L502.0250, L503.6030, L501.2300, L501.9985, L506.1000, L100.0500, L509.1000, L500.4050, L503.6550, L500.4100 ####[facility] [address] [place], [address] Urea nitrogen [Mass/Vol] 46 mg/dL High 7-18 [facility] Comment on above: Order Comment: DR MARCELO ORDERED RENAL, CBC, PTH, VITD, PROCRE URINE,DR MANUEL ORDERED CBC,CMP,LIPID,MIACREA URINE,A1C, Performed By: #### L 501.0900, L502.0250, L503.6030, L501.2300, L501.9985, L506.1000, L100.0500, L509.1000, L500.4050, L503.6550, L500.4100 ####[facility] [address] [place], [address] Ferritinon 10-09-2023 Ferritin [Mass/Vol] 60 ng/mL Normal 8-252 [facility] Comment on above: Order Comment: DR MARCELO ORDERED RENAL, CBC, PTH, VITD, PROCRE URINE,DR MANUEL ORDERED CBC,CMP,LIPID,MIACREA URINE,A1C, Performed By: #### L 501.0900, L502.0250, L503.6030, L501.2300, L501.9985, L506.1000, L100.0500, L509.1000, L500.4050, L503.6550, L500.4100 ####[facility] [address] [place], [address] Hemoglobin A1con 10-09-2023 HbA1c (Bld) [Mass fraction] 7.0 % High 3.8-5.6 [facility] Comment on above: Order Comment: DR MARCELO ORDERED RENAL, CBC, PTH, VITD, PROCRE URINE,DR MANUEL ORDERED CBC,CMP,LIPID,MIACREA URINE,A1C, Result Comment: Norm al < 5.7 % Prediabetic 5.7 - 6.4 % Diabetic >or= 6.5 % Please note range changes. Performed By: #### L 501.0900, L502.0250, L503.6030, L501.2300, L501.9985, L506.1000, L100.0500, L509.1000, L500.4050, L503.6550, L500.4100 ####[facility] [address] [place], [address] Iron+Iron Binding Capacityon 10-09-2023 Iron [Mass/Vol] 75 ug/dL Normal 50-170 [facility] Comment on above: Order Comment: DR MARCELO ORDERED RENAL, CBC, PTH, VITD, PROCRE URINE,DR MANUEL ORDERED CBC,CMP,LIPID,MIACREA URINE,A1C, Performed By: #### L 501.0900, L502.0250, L503.6030, L501.2300, L501.9985, L506.1000, L100.0500, L509.1000, L500.4050, L503.6550, L500.4100 ####[facility] [address] [place], [address] IRON SATURATION 24.5 Normal 15.0-55.0 [facility] Comment on above: Order Comment: DR MARCELO ORDERED RENAL, CBC, PTH, VITD, PROCRE URINE,DR MANUEL ORDERED CBC,CMP,LIPID,MIACREA URINE,A1C, Performed By: #### L 501.0900, L502.0250, L503.6030, L501.2300, L501.9985, L506.1000, L100.0500, L509.1000, L500.4050, L503.6550, L500.4100 ####[facility] [address] [place], [address] TIBC 306 ug/dL Normal 250-450 [facility] Comment on above: Order Comment: DR MARCELO ORDERED RENAL, CBC, PTH, VITD, PROCRE URINE,DR MANUEL ORDERED CBC,CMP,LIPID,MIACREA URINE,A1C, Performed By: #### L 501.0900, L502.0250, L503.6030, L501.2300, L501.9985, L506.1000, L100.0500, L509.1000, L500.4050, L503.6550, L500.4100 ####[facility] [address] [place], [address] Lipid Profileon 10-09-2023 Cholesterol [Mass/Vol] 94 mg/dL Normal 200 [facility] Comment on above: Order Comment: DR MARCELO ORDERED RENAL, CBC, PTH, VITD, PROCRE URINE,DR MANUEL ORDERED CBC,CMP,LIPID,MIACREA URINE,A1C, Result Comment: <200 mg/dL Desirable 200-240 mg/dL Borderline >240 mg/dL High Risk Performed By: #### L 501.0900, L502.0250, L503.6030, L501.2300, L501.9985, L506.1000, L100.0500, L509.1000, L500.4050, L503.6550, L500.4100 ####[facility] [address] [place], [address] Cholesterol in HDL [Mass/Vol] 42 mg/dL Normal [facility] Comment on above: Order Comment: DR MARCELO ORDERED RENAL, CBC, PTH, VITD, PROCRE URINE,DR MANUEL ORDERED CBC,CMP,LIPID,MIACREA URINE,A1C, Result Comment: The drugs N-Acetylcysteine and Metamizole may falselydepress this assay. Reference Range HDL <40 mg/dL Low HDL Cholesterol HDL >or= 60 mg/dL High HDL Cholesterol Performed By: #### L 501.0900, L502.0250, L503.6030, L501.2300, L501.9985, L506.1000, L100.0500, L509.1000, L500.4050, L503.6550, L500.4100 ####[facility] [address] [place], [address] Cholesterol in LDL [Mass/Vol] 23 mg/dL Normal 0-130 [facility] Comment on above: Order Comment: DR MARCELO ORDERED RENAL, CBC, PTH, VITD, PROCRE URINE,DR MANUEL ORDERED CBC,CMP,LIPID,MIACREA URINE,A1C, Performed By: #### L 501.0900, L502.0250, L503.6030, L501.2300, L501.9985, L506.1000, L100.0500, L509.1000, L500.4050, L503.6550, L500.4100 ####[facility] [address] [place], [address] Cholesterol in VLDL [Mass/Vol] 29 mg/dL Normal 5-40 [facility] Comment on above: Order Comment: DR MARCELO ORDERED RENAL, CBC, PTH, VITD, PROCRE URINE,DR MANUEL ORDERED CBC,CMP,LIPID,MIACREA URINE,A1C, Performed By: #### L 501.0900, L502.0250, L503.6030, L501.2300, L501.9985, L506.1000, L100.0500, L509.1000, L500.4050, L503.6550, L500.4100 ####[facility] [address] [place], [address] Triglyceride [Mass/Vol] 144 mg/dL Normal [facility] Comment on above: Order Comment: DR MARCELO ORDERED RENAL, CBC, PTH, VITD, PROCRE URINE,DR MANUEL ORDERED CBC,CMP,LIPID,MIACREA URINE,A1C, Result Comment: The drugs N-Acetylcysteine and Metamizole may falselydepress this assay.Serum Triglycerides Reference Interval Normal <150 mg/dL Borderline high 150 - 199 mg/dL High 200 - 499 mg/dL Very High > or = 500 mg/dL Performed By: #### L 501.0900, L502.0250, L503.6030, L501.2300, L501.9985, L506.1000, L100.0500, L509.1000, L500.4050, L503.6550, L500.4100 ####[facility] [address] [place], [address] Microalb:Creat Ratio,Random URon 10-09-2023 MALB:CRE 187.8 mg/g CRE High <30 mg/g CRE [facility] Comment on above: Order Comment: DR MARCELO ORDERED RENAL, CBC, PTH, VITD, PROCRE URINE,DR MANUEL ORDERED CBC,CMP,LIPID,MIACREA URINE,A1C, Performed By: #### L 501.0900, L502.0250, L503.6030, L501.2300, L501.9985, L506.1000, L100.0500, L509.1000, L500.4050, L503.6550, L500.4100 ####[facility] [address] [place], [address] MICROALBUMIN,UR 55.4 mg/L Normal NO RANGE EST. [facility] Comment on above: Order Comment: DR MARCELO ORDERED RENAL, CBC, PTH, VITD, PROCRE URINE,DR MANUEL ORDERED CBC,CMP,LIPID,MIACREA URINE,A1C, Performed By: #### L 501.0900, L502.0250, L503.6030, L501.2300, L501.9985, L506.1000, L100.0500, L509.1000, L500.4050, L503.6550, L500.4100 ####[facility] [address] [place], [address] PTHINon 10-09-2023 PTH 62.9 pg/mL Normal 18.4-80.1 [facility] Comment on above: Order Comment: DR MARCELO ORDERED RENAL, CBC, PTH, VITD, PROCRE URINE,DR MANUEL ORDERED CBC,CMP,LIPID,MIACREA URINE,A1C, Performed By: #### L 501.0900, L502.0250, L503.6030, L501.2300, L501.9985, L506.1000, L100.0500, L509.1000, L500.4050, L503.6550, L500.4100 ####[facility] [address] [place], [address] Phosphoruson 10-09-2023 Phosphate [Mass/Vol] 3.5 mg/dL Normal 2.5-4.9 [facility] Comment on above: Order Comment: DR MARCELO ORDERED RENAL, CBC, PTH, VITD, PROCRE URINE,DR MANUEL ORDERED CBC,CMP,LIPID,MIACREA URINE,A1C, Performed By: #### L 501.0900, L502.0250, L503.6030, L501.2300, L501.9985, L506.1000, L100.0500, L509.1000, L500.4050, L503.6550, L500.4100 ####[facility] [address] [place], [address] Protein+Creatinine Ratio,Uri neon 10-09-2023 PROT:CRE RATIO 725 mg/g CRE High 0-200 [facility] Comment on above: Order Comment: DR MARCELO ORDERED RENAL, CBC, PTH, VITD, PROCRE URINE,DR MANUEL ORDERED CBC,CMP,LIPID,MIACREA URINE,A1C, Performed By: #### L 501.0900, L502.0250, L503.6030, L501.2300, L501.9985, L506.1000, L100.0500, L509.1000, L500.4050, L503.6550, L500.4100 ####[facility] [address] [place], [address] Protein (U) [Mass/Vol] 21.4 mg/dL High <11.9 [facility] Comment on above: Order Comment: DR MARCELO ORDERED RENAL, CBC, PTH, VITD, PROCRE URINE,DR MANUEL ORDERED CBC,CMP,LIPID,MIACREA URINE,A1C, Performed By: #### L 501.0900, L502.0250, L503.6030, L501.2300, L501.9985, L506.1000, L100.0500, L509.1000, L500.4050, L503.6550, L500.4100 ####[facility] [address] [place], [address] UR CREAT 29.50 mg/dL Normal NO RANGE EST. [facility] Comment on above: Order Comment: DR MARCELO ORDERED RENAL, CBC, PTH, VITD, PROCRE URINE,DR MANUEL ORDERED CBC,CMP,LIPID,MIACREA URINE,A1C, Performed By: #### L 501.0900, L502.0250, L503.6030, L501.2300, L501.9985, L506.1000, L100.0500, L509.1000, L500.4050, L503.6550, L500.4100 ####[facility] [address] [place], [address] Vitamin D,25 Hydroxyon 10-08 Vitamin D 25-OH 33.2 ng/mL Normal [facility] Comment on above: Order Comment: DR MARCELO ORDERED RENAL, CBC, PTH, VITD, PROCRE URINE,DR MANUEL ORDERED CBC,CMP,LIPID,MIACREA URINE,A1C, Result Comment: Maryann min D 25(OH) Status Range Deficiency <20 ng/mL (50nmol/L) Insufficiency 20 - 30 ng/mL (50 - 75 nmol/L) Sufficiency 30 - 100 ng/mL (75 - 250 nmol/L) Toxicity >100 ng/mL (>250 nmol/L) Performed By: #### L 501.0900, L502.0250, L503.6030, L501.2300, L501.9985, L506.1000, L100.0500, L509.1000, L500.4050, L503.6550, L500.4100 ####[facility] [address] [place], [address] CNOVon 09-23-2023 CNOV Office Visit (INTMWS ) -------- VAL ERICKSON ([id number]) 1945 F Date Time Provider Department 09/23/23 9:00 AM KACY MARY INTMWS During your visit today, we recorded the following information about you: Pulse Respiration Blood pressure 87/minute 18/minute 118/78 Kacy Mary, VISUAL DISPLAY MANAGER.COCONUT COOKER 09/23/2023 10:14 AM Aric Gordon Georgina is a 78 year old female here for a Medicare wellness visit. Medicare Health Risk Assessment General Health Good Exercise: Minutes/Day 0 min Exercise: Days/Week 0 days Alcohol: Daily Use Never Alcohol: Drinks/Day Patient does not drink Alcohol: 6 or more drinks Never Feel off balance Yes Concerns: Teeth/Dentures No Concerns: Sexual function No Troubled by feelings None of the above Frequency: Eating healthy diet Several days ADLs requiring help Cooking; Driving; Grocery shopping; Housework Safety precautions in home/vehicle Yes Smoke, vape, chews tobacco No Difficulty hearing No Difficulty seeing No Current Providers Specialists: I have reviewed specialist-related care of the patient in the medical record. Current care team: Patient Care Team: Neel Turpin MD as PCP - Tessa Blakely [facility] as Pharmacist (Pharmacy) [facility] ophthalmology Outside specialists seen: Renal-Dr. Louise, Cardiology-Dr. Wayne, Podiatry-Dr. Hicks ([facility]), plate embosser- Dr. Walter Medical/Family history review Reviewed and updated problem list, medical/surgical/family/ social history, medications, and allergies. Opioid use review Opioid Medications (last 90 days) 09/11/2023 Opioid Medications hydrocodone/acetaminophe n 1 tablet, ORAL, EVERY 6 HOURS NEEDED, Until 09/11/23 at 1353, pain - severe (7-10), first line -Discontinued tramadol HCl 50 mg, ORAL, Until 09/11/23 at 1353 -Discontinued Details Hospital medication Anxiety/Depression screening PHQ-2 Score: 4 (Higher risk for depression. PHQ-9 Recommended) PAULA-2 Score: 0 (Lower risk for anxiety) Recommendation: medication management Cognitive screening Mini Cog Score: 3 Cognitive screening reviewed and No further action needed (score 3-5). Functional Observation Was the patient's Timed Up AND Go test unsteady or ? 12 seconds? Yes Advance Care Planning Patient was not able to provide a surrogate decision maker or written advance directives Measurements BP 118/78 Pulse 87 Resp 18 Wt 0 lb (0.0kg) SpO2 93% Vision Screening: Follows with optometry/ophthalmology Assessment/Plan Medicare annual wellness visit, subsequent (Z00.00) - Counseled on healthy diet and regular exercise - Fall avoidance information provided - Personalized prevention plan provided - Discussed need for and benefit of weight loss. BMI 0.00 kg/(m2) Additional Concerns The following concerns were also discussed with the patient: Patient states she fell about one week ago, landed on her right hip on the hard floor. She had been standing and reaching forward for her walker when she fell. Right hip pain is posterior. Aggravated by weight bearing activities. Denies any other injuries from the fall. Taking Tylenol for pain without much relief. Diabetes: Home blood sugar readings: fasting typically in lyd038's Hypoglycemia: No She is compliant with medication(s) and is tolerating med(s) without any side effects. Increased thirst: No Urinary frequency: No Nocturia: No Fatigue: No Unintentional weight loss: No Blurred vision: No Numbness, tingling or pain in extremities: No Ulcers or sores on feet: No Last Ophthalmology exam: within the past 12 months Patient's last HgA1C : Hemoglobin A1C (%) Date Value 05/19/2018 6.5 02/18/2012 6.4 Hemoglobin A1C (POCT) (%) Date Value 05/01/2023 8.3 01/04/2023 12.4 depression: Patient is currently taking Effexor 37.5 mg x two years Feels medication is working well: no, lately has been feeling more down and depressed along with anhedonia Side effects: None Denies suicidal thoughts or plan. BP 118/78 Pulse 87 Resp 18 SpO2 93% Physical Exam Vitals reviewed. Constitutional: Appearance: Normal appearance. Musculoskeletal: Right hip: Tenderness (greater trochanter) present. No deformity. Comments: Unable to complete full hip evaluation due to pain and mobility issues Skin: General: Skin is warm and dry. Neurological: Mental Status: She is alert. Psychiatric: Mood and Affect: Mood normal. ASSESSMENT/PLAN: 1. Medicare annual wellness visit, subsequent - ICD9: V70.0, ICD10: Z00.00 (primary diagnosis) See medicare wellness plan 2. Depressive disorder - ICD9: 311, ICD10: F32.A Worsening depression. Increase dose of Effexor to 75 mg daily - Reviewed benefits of sleep hygeine, diet and exercise - Follow-up in one month or sooner as needed - Instructed patient to contact office or grksn-qy-xhqm after-hours pr (more content not included)... Normal [facility] Rita 09-23-2023 JERRYN Telephone (INTMWS) -------- GEORGINAVAL ([id number]) 1945 F Date Time Provider Department 09/23/23 KACY MARY During your visit today, we recorded the following information about you: Ritu Pablo MA 09/23/2023 11:09 AM Signed ----- Message from Kacy Mary APRN.COCONUT COOKER sent at 09/23/2023 11:03 AM EDT ----- Please let the patient know the x-ray was negative for fracture. Call office in 2 weeks if pain does not improve or sooner if any worsening Kacy Mary APRN.COCONUT COOKER Ritu Pablo MA 09/23/2023 11:11 AM Signed Left detailed message on ConnectToHome. Allergies As of Date: 09/23/2023 Noted Allergy Reaction RYBELSUS (SEMAGLUTIDE) 07/10/2023 5 - Intolerance Comments: Uncontrollable indigestion LEVAQUIN (LEVOFLOXACIN) 12/29/2004 Comments: itching,diarrhea,dausea, burning skin SEASONAL ALLERGIES 08/19/2014 14 - Other: See Comments Comments: Sinus SULFA (SULFONAMIDE ANTIBIOTICS) 12/29/2004 Comments: rash and hives Date Reviewed: 09/23/2023 Reviewed by: Kacy Mary APRN.COCONUT COOKER - Fully Assessed Reason for Visit: Results [95] Prescriptions as of 09/23/2023 - venlafaxine ER (EFFEXOR XR) 75 mg 24 hr capsule Take 1 capsule by mouth once daily. - gabapentin (NEURONTIN) 300 mg capsule Take 1 capsule by mouth two times a day for 180 days. - empagliflozin (JARDIANCE) 10 mg tablet Take 1 tablet by mouth once daily. Prescribed by ballistics teacher - insulin glargine (LANTUS SOLOSTAR U-100 INSULIN) 100 unit/mL (3 mL) Inject 48 Units subcutaneously daily at bedtime. - furosemide (LASIX) 20 mg tablet Take 1 tablet by mouth once daily. Take an extra 20 mg tablet daily as needed - calcitriol (ROCALTROL) 0.5 mcg capsule Take 0.5 mcg by mouth. - clotrimazole (LOTRIMIN) 1 % cream Apply to affected area. - lidocaine (SALONPAS) 4 % patch Apply 1 Patch as directed. - simvastatin (ZOCOR) 40 mg tablet Take 1 tablet by mouth daily at bedtime. For cholesterol. - hydrALAZINE (APRESOLINE) 25 mg tablet Take 25 mg by mouth three times a day. - metoprolol succinate ER (TOPROL XL) 50 mg 24 hr tablet Take 1 tablet by mouth once daily. Per Dr. Yulia Antoine, cardiology. - Insulin [place], Disposable, 29 gauge x 1/2 Use once daily as directed. Dx E11.29 - ipjavufxfrh-mvtdrhtop-na lanter (TRELEGY ELLIPTA) 100-62.5-25 mcg inhalation powder Inhale 1 Puff as instructed once daily. - docusate sodium (COLACE) 100 mg capsule Take 1 capsule by mouth as needed. - melatonin 5 mg tablet Take 2 tablets by mouth. - senna (SENOKOT) 8.6 mg tab Take 1 tablet by mouth as needed. - Vit C-Vit R-Zjexfi-WpAl-Lutein (PRESERVISION LUTEIN) 226 mg-200 unit -5 mg-0.8 [...] daily 250.02 Problem List As Of Date 09/23/2023 Noted Resolved Essential hypertension [I10] Generalized osteoarthritis [...] *11/15/2016 Controlled diabetes mellitus type 1 without com*10/24/201708/17 (more content not included)... Normal [facility] HEMOGLOBIN A1C (POC)on 09-22 HbA1c (Bld) [Mass fraction] 7.0 % Abnormal 4.3 - 5.6 % [facility] Comment on above: Location:[facility], [facility], [place], [address] Point of care (POC) Hemoglobin A1c (HGBA1C) testing is intended to assess glucose control and provide a management tool for patients known to have diabetes and their healthcare providers. Target HGBA1C levels may depend on specific clinical circumstances. POC HGBA1C is not intended for use as a diagnostic or screening test; laboratory-based testing should be used for diagnostic purposes. The following information is supplemental and may not be applicable to specific diabetes management situations: The POC device nurses superintendent provides a normal range of 4.2% to 6.5% for the HGBA1C POC test. However, the [place] Diabetes Association guidelines indicate that patients with HGBA1C in the range of 5.7% to 6.4% are at increased risk for development of diabetes and that intervention by lifestyle modification may be beneficial. A HGBA1C level greater than or equal to 6.5% is considered diagnostic of diabetes, pending confirmatory testing. Use of HGBA1C testing to evaluate glucose control may not be appropriate for patients with hemoglobin variants or other conditions (e.g. anemia) that alter red blood cell lifespan. Interpretation and review of laboratory results Abnormal [facility] XR HIP 3V PELV+ AP/LAT RTon 09-23-2023 XR HIP 3V PELV+ AP/LAT RT * * *Final Report* * * DATE OF EXAM: Sep 23 2023 10:51AM WOX [id number] - XR HIP 3V PELV+ AP/LAT RT / PROCEDURE REASON: multiple diagnoses * * * * Physician Interpretation * * * * TITLE: XR HIP 3V PELV+ AP/LAT RT CLINICAL INDICATION: Hip pain status post fall TECHNIQUE: AP radiograph of the pelvis and AP/frog leg lateral radiographs of the right hip COMPARISON: None FINDINGS: Osseous demineralization. No acute fracture or dislocation identified. Mild bilateral hip joint degenerative changes. Degenerative changes in the visualized lower lumbar spine. Atherosclerotic calcification of the vasculature. IMPRESSION: No radiographic evidence of acute osseous injury. If there is persistent pain or if the patient is unable to bear weight, consider advanced imaging to exclude radiographically occult fracture. Cinder Man: ABBEY Transcribe Date/Time: Sep 23 2023 10:55A Dictated by : YAMIL STARR MD This examination was interpreted and the report reviewed and electronically signed by: YAMIL STARR MD on Sep 23 2023 11:00AM EST [id number] Normal [facility] XR Pelvis and Hip - right AP and Lateral frogon 09-23-2023 IMPRESSION: No radiographic evidence of acute osseous injury. If there is persistent pain or if the patient is unable to bear weight, consider advanced imaging to exclude radiographically occult fracture. Cinder Man: ABBEY Transcribe Date/Time: Sep 23 2023 10:55A Dictated by : YAMIL STARR MD This examination was interpreted and the report reviewed and electronically signed by: YAMIL STARR MD on Sep 23 2023 11:00AM EST DIVISION OF RADIOLOGY * * *Final Report* * * DATE OF EXAM: Sep 23 2023 10:51AM WOX [id number] - XR HIP 3V PELV+ AP/LAT RT / PROCEDURE REASON: multiple diagnoses * * * * Physician Interpretation * * * * TITLE: XR HIP 3V PELV+ AP/LAT RT CLINICAL INDICATION: Hip pain status post fall TECHNIQUE: AP radiograph of the pelvis and AP/frog leg lateral radiographs of the right hip COMPARISON: None FINDINGS: Osseous demineralization. No acute fracture or dislocation identified. Mild bilateral hip joint degenerative changes. Degenerative changes in the visualized lower lumbar spine. Atherosclerotic calcification of the vasculature. DIVISION OF RADIOLOGY Provider, [facility] - 09/23/2023 * * *Final Report* * * DATE OF EXAM: Sep 23 2023 10:51AM WOX [id number] - XR HIP 3V PELV+ AP/LAT RT / PROCEDURE REASON: multiple diagnoses * * * * Physician Interpretation * * * * TITLE: XR HIP 3V PELV+ AP/LAT RT CLINICAL INDICATION: Hip pain status post fall TECHNIQUE: AP radiograph of the pelvis and AP/frog leg lateral radiographs of the right hip COMPARISON: None FINDINGS: Osseous demineralization. No acute fracture or dislocation identified. Mild bilateral hip joint degenerative changes. Degenerative changes in the visualized lower lumbar spine. Atherosclerotic calcification of the vasculature. IMPRESSION IMPRESSION: No radiographic evidence of acute osseous injury. If there is persistent pain or if the patient is unable to bear weight, consider advanced imaging to exclude radiographically occult fracture. Cinder Man: PSCB Transcribe Date/Time: Sep 23 2023 10:55A Dictated by : YAMIL STARR MD This examination was interpreted and the report reviewed and electronically signed by: YAMIL STARR MD on Sep 23 2023 11:00AM EST [facility] Radiology Study observation (narrative) [facility] XR Pelvis and Hip - right AP and Lateral frogOrdered By: Ccf Provider on 09-23-2023 [facility] Basic metabolic 2000 panelon 09-11-2023 Anion gap [Moles/Vol] 13 mmol/L 10 - 2 0 mmol/L [facility] Calcium [Mass/Vol] 9.2 mg/dL 8.6 - 10. 3 mg/dL [facility] Chloride [Moles/Vol] 101 mmol/L 98 - 10 7 mmol/L [facility] CO2 [Moles/Vol] 25 mmol/L 21 - 32 mmol/L [facility] Creatinine [Mass/Vol] 2.02 mg/dL High 0.50 - 1.05 mg/dL [facility] GFR/1.73 sq M.predicted among non-blacks MDRD (S/P/Bld) [Vol rate/Area] 25 mL/min/{1.73_m2} Low - PINF [facility] Comment on above: Calculations of te mated GFR are performed using the 2020 CKD-EPI Study Refit equation without the race variable for the IDMS-Traceable creatinine methods. https://jasn.asnjournals.org/content//ASN.082621 2169 Glucose [Mass/Vol] 121 mg/dL High 74 - 99 mg/dL [facility] Interpretation and review of laboratory results Abnormal [facility] Potassium [Moles/Vol] 4.5 mmol/L 3.5 - 5.3 mmol/L [facility] Sodium [Moles/Vol] 134 mmol/L Low 136 - 145 mmol/L [facility] Urea nitrogen [Mass/Vol] 43 mg/dL High 6 - 23 mg/dL [facility] Anion gap [Moles/Vol] 13 mmol/L Normal 10-20 [facility] Comment on above: Performed By: #### 8 9577-1 #### AKOSUA SEGOVIA ([id number]) [facility] ([facility]) [address] [place] [address] Calcium [Mass/Vol] 9.2 mg/dL Normal 8.6-10.3 [facility] Comment on above: Performed By: #### 8 9577-1 #### AKOSUA SEGOVIA ([id number]) [facility] ([facility]) [address] [place] [address] Chloride [Moles/Vol] 101 mmol/L Normal 98-107 [facility] Comment on above: Performed By: #### 8 9577-1 #### AKOSUA SEGOVIA ([id number]) [facility] ([facility]) [address] [place] [address] CO2 [Moles/Vol] 25 mmol/L Normal 21-32 [facility] Comment on above: Performed By: #### 8 9577-1 #### AKOSUA SEGOVIA ([id number]) [facility] ([facility]) [facility] [place] [address] Creatinine [Mass/Vol] 2.02 mg/dL High 0.50-1.05 [facility] Comment on above: Performed By: #### 8 9577-1 #### AKOSUA SEGOVIA ([id number]) [facility] ([facility]) [facility] [place] [address] Glomerular filtration rate/1.73 sq M.predicted 25 mL/min/1.73m*2 Low >60 [facility] Comment on above: Result Comment: Calc ulations of estimated GFR are performed using the 2020 CKD-EPI Study Refit equation without the race variable for the IDMS-Traceable creatinine methods. https://jasn.asnjournals.org/content/early/ASN.229649 6172 Performed By: #### 8 9577-1 #### AKOSUA SEGOVIA ([id number]) [facility] ([facility]) [facility] [place] [address] Glucose [Mass/Vol] 121 mg/dL High 74-99 [facility] Comment on above: Performed By: #### 8 9577-1 #### AKOSUA SEGOVIA ([id number]) [facility] ([facility]) [address] [place] [address] Potassium [Moles/Vol] 4.5 mmol/L Normal 3.5-5.3 [facility] Comment on above: Performed By: #### 8 9577-1 #### AKOSUA SEGOVIA ([id number]) [facility] ([facility]) [address] [place] [address] Sodium [Moles/Vol] 134 mmol/L Low 136-145 [facility] Comment on above: Performed By: #### 8 9577-1 #### AKOSUA SEGOVIA ([id number]) [facility] ([facility]) [address] [place] [address] Urea nitrogen [Mass/Vol] 43 mg/dL High 6-23 [facility] Comment on above: Performed By: #### 8 9577-1 #### AKOSUA SEGOVIA ([id number]) [facility] ([facility]) [address] [place] [address] 21541 Glucose Test strip manual (B ld) [Mass/Vol]on 09-11-2023 Glucose [Mass/Vol] 187 mg/dL High 74 - 99 mg/dL [facility] Interpretation and review of laboratory results Abnormal [facility] Glucose [Mass/Vol] 187 mg/dL High 74-99 [facility] Comment on above: Performed By: #### 8 9577-1 #### AKOSUA SEGOVIA ([id number]) [facility] ([facility]) [address] [place] [address] 28520 Glucose [Mass/Vol] 93 mg/dL 74 - 99 mg/dL [facility] Interpretation and review of laboratory results Normal [facility] Glucose [Mass/Vol] 93 mg/dL Normal 74-99 [facility] Comment on above: Performed By: #### 8 9577-1 #### AKOSUA SEGOVIA ([id number]) [facility] ([facility]) [address] [place] [address] [place] Topon 09-11-2023 Extra Tube Hold for add-ons. [facility] Comment on above: Auto resulted. [facility] NM LUNG PERFUSION WITH SPECT /CTon 09-11-2023 NM LUNG PERFUSION WITH SPECT/CT Interpreted By: Paula Paredes, and Radiology Admin ADDENDUM: This radiology study is being re-signed due to an administrative error but not reinterpreted. The new signature merely reflects the date upon which the administrative error was corrected for placement in patient chart. The actual interpretation took place in a timely fashion, consistent with policy, by the physician referenced as interpreting the study. STUDY: NM LUNG PERFUSION WITH SPECT/CT Signed by: Paula Paredes 09/11/2023 2:22 PM -------- ORIGINAL REPORT -------- Dictation workstation: [id number] Interpreted By: Paula Paredes, STUDY: NM LUNG PERFUSION; 09/10/2023 7:49 am INDICATION: Signs/Symptoms:chest pain. COMPARISON: None. ACCESSION NUMBER(S): [id number] ORDERING CLINICIAN: MONSERRAT PRINCE TECHNIQUE: DIVISION OF NUCLEAR MEDICINE PERFUSION LUNG SCAN Multiple perfusion images of the lungs were obtained after the intravenous administration of 4.4 mCi of Tc-99m MAA. SPECT CT images of the lungs were also obtained. FINDINGS: Perfusion images demonstrate heterogeneity without evidence of wedge-shaped abnormalities to suggest acute pulmonary embolism. IMPRESSION: Low probability of acute pulmonary embolism. Images were interpreted at [facility]. Signed by: Paula Paredes 09/10/2023 7:54 AM Dictation workstation: [id number] Normal [facility] Basic metabolic 2000 panelon 09-10-2023 Anion gap [Moles/Vol] 12 mmol/L 10 - 2 0 mmol/L [facility] Calcium [Mass/Vol] 8.8 mg/dL 8.6 - 10. 3 mg/dL [facility] Chloride [Moles/Vol] 103 mmol/L 98 - 10 7 mmol/L [facility] CO2 [Moles/Vol] 27 mmol/L 21 - 32 mmol/L [facility] Creatinine [Mass/Vol] 2.42 mg/dL High 0.50 - 1.05 mg/dL [facility] GFR/1.73 sq M.predicted among non-blacks MDRD (S/P/Bld) [Vol rate/Area] 20 mL/min/{1.73_m2} Low - PINF [facility] Comment on above: Calculations of te mated GFR are performed using the 2020 CKD-EPI Study Refit equation without the race variable for the IDMS-Traceable creatinine methods. https://jasn.asnjournals.org/content/early//ASN.502575 3220 Glucose [Mass/Vol] 110 mg/dL High 74 - 99 mg/dL [facility] Interpretation and review of laboratory results Abnormal [facility] Potassium [Moles/Vol] 4.5 mmol/L 3.5 - 5.3 mmol/L [facility] Sodium [Moles/Vol] 137 mmol/L 136 - 145 mmol/L [facility] Urea nitrogen [Mass/Vol] 46 mg/dL High 6 - 23 mg/dL [facility] Anion gap [Moles/Vol] 12 mmol/L Normal 10-20 [facility] Comment on above: Performed By: #### 2 4321-2 #### AKOSUA SEGOVIA ([id number]) [facility] ([facility]) [facility] [place] [address] Calcium [Mass/Vol] 8.8 mg/dL Normal 8.6-10.3 [facility] Comment on above: Performed By: #### 2 4321-2 #### AKOSUA SEGOVIA ([id number]) [facility] ([facility]) [address] [place] [address] Chloride [Moles/Vol] 103 mmol/L Normal 98-107 [facility] Comment on above: Performed By: #### 2 4321-2 #### AKOSUA SEGOVIA ([id number]) [facility] ([facility]) [address] [place] [address] CO2 [Moles/Vol] 27 mmol/L Normal 21-32 [facility] Comment on above: Performed By: #### 2 4321-2 #### AKOSUA SEGOVIA ([id number]) [facility] ([facility]) [address] [place] [address] Creatinine [Mass/Vol] 2.42 mg/dL High 0.50-1.05 [facility] Comment on above: Performed By: #### 2 4321-2 #### AKOSUA SEGOVIA ([id number]) [facility] ([facility]) [address] [place] [address] Glomerular filtration rate/1.73 sq M.predicted 20 mL/min/1.73m*2 Low >60 [facility] Comment on above: Result Comment: Calc ulations of estimated GFR are performed using the 2020 CKD-EPI Study Refit equation without the race variable for the IDMS-Traceable creatinine methods. https://jasn.asnjournals.org/content/early/ASN.225414 8077 Performed By: #### 2 4321-2 #### AKOSUA SEGOVIA ([id number]) [facility] ([facility]) [facility] [place] [address] Glucose [Mass/Vol] 110 mg/dL High 74-99 [facility] Comment on above: Performed By: #### 2 4321-2 #### AKOSUA SEGOVIA ([id number]) [facility] ([facility]) [address] [place] [address] Potassium [Moles/Vol] 4.5 mmol/L Normal 3.5-5.3 [facility] Comment on above: Performed By: #### 2 4321-2 #### AKOSUA SEGOVIA ([id number]) [facility] ([facility]) [facility] [place] [address] Sodium [Moles/Vol] 137 mmol/L Normal 136-145 [facility] Comment on above: Performed By: #### 2 4321-2 #### AKOSUA SEGOVIA ([id number]) [facility] ([facility]) [facility] [place] [address] Urea nitrogen [Mass/Vol] 46 mg/dL High 6-23 [facility] Comment on above: Performed By: #### 2 4321-2 #### AKOSUA SEGOVIA ([id number]) [facility] ([facility]) [address] [place] [address] CBC panel Auto (Bld)on 09-09 Erythrocyte distribution width (RBC) [Ratio] 14.0 % 11.5 - 14.5 % [facility] Hematocrit (Bld) [Volume fraction] 31.8 % Low 36.0 - 46.0 % [facility] Hemoglobin (Bld) [Mass/Vol] 9.5 g/dL Low 12.0 - 16.0 g/dL [facility] Interpretation and review of laboratory results Abnormal [facility] MCH (RBC) [Entitic mass] 30.8 pg 26.0 - 34.0 pg [facility] MCHC (RBC) [Mass/Vol] 29.9 g/dL Low 32.0 - 36.0 g/dL [facility] MCV (RBC) [Entitic vol] 103 fL High 80 - 100 fL [facility] Nucleated RBC/100 WBC (Bld) [Ratio] 0.0 % [facility] Platelets (Bld) [#/Vol] 188 10*3/uL [facility] RBC (Bld) [#/Vol] 3.08 10*6/uL Low [facility] WBC (Bld) [#/Vol] 8.0 10*3/uL [facility] Erythrocyte distribution width (RBC) [Ratio] 14.0 % Normal 11.5-14.5 [facility] Comment on above: Performed By: #### 2 4321-2 #### AKOSUA SEGOVIA ([id number]) [facility] ([facility]) [address] [place] [address] Hematocrit (Bld) [Volume fraction] 31.8 % Low 36.0-46.0 [facility] Comment on above: Performed By: #### 2 4321-2 #### AKOSUA SEGOVIA ([id number]) [facility] ([facility]) [address] [place] [address] Hemoglobin (Bld) [Mass/Vol] 9.5 g/dL Low 12.0-16.0 [facility] Comment on above: Performed By: #### 2 4321-2 #### AKOSUA SEGOVIA ([id number]) [facility] ([facility]) [address] [place] [address] MCH (RBC) [Entitic mass] 30.8 pg Normal 26.0-34.0 [facility] Comment on above: Performed By: #### 2 4321-2 #### AKOSUA SEGOVIA ([id number]) [facility] ([facility]) [address] [place] [address] 58475 MCHC (RBC) [Mass/Vol] 29.9 g/dL Low 32.0-36.0 [facility] Comment on above: Performed By: #### 2 4321-2 #### AKOSUA SEGOVIA ([id number]) [facility] ([facility]) [address] [place] [address] 01528 MCV (RBC) [Entitic vol] 103 fL High 80-100 [facility] Comment on above: Performed By: #### 2 4321-2 #### AKOSUA SEGOVIA ([id number]) [facility] ([facility]) [address] [place] [address] 58356 Nucleated RBC/100 WBC (Bld) [Ratio] 0.0 /100 WBCs Normal 0.0-0.0 [facility] Comment on above: Performed By: #### 2 4321-2 #### AKOSUA SEGOVIA ([id number]) [facility] ([facility]) [address] [place] [address] Platelets (Bld) [#/Vol] 188 x10*3/uL Normal 150-450 [facility] Comment on above: Performed By: #### 2 4321-2 #### AKOSUA SEGOVIA ([id number]) [facility] ([facility]) [address] [place] [address] RBC (Bld) [#/Vol] 3.08 x10*6/uL Low 4.00-5.20 [facility] Comment on above: Performed By: #### 2 4321-2 #### AKOSUA SEGOVIA ([id number]) [facility] ([facility]) [facility] [place] [address] WBC (Bld) [#/Vol] 8.0 x10*3/uL Normal 4.4-11.3 [facility] Comment on above: Performed By: #### 2 4321-2 #### AKOSUA SEGOVIA ([id number]) [facility] ([facility]) [facility] [place] [address] Cobalaminson 09-10-2023 Cobalamin (Vitamin B12) [Mass/Vol] 164 pg/mL Low 211-911 [facility] Comment on above: Performed By: #### 8 9577-1 #### AKOSUA SEGOVIA ([id number]) [facility] ([facility]) [address] [place] [address] 18849 Folateon 09-10-2023 Folate [Mass/Vol] 9.3 ng/mL 5.0 - PINF ng/mL [facility] Folate [Mass/Vol] 9.3 ng/mL Normal >5.0 [facility] Comment on above: Order Comment: Less than 99th percentile of normal range cutoff- Female and children under 18 years old <14 ng/L; Male <21 ng/L: Negative Repeat testing should be performed if clinically indicated. Female and children under 18 years old 14-50 ng/L; Male 21-50 ng/L: Consistent with possible cardiac damage and possible increased clinical risk. Serial measurements may help to assess extent of myocardial damage. >50 ng/L: Consistent with cardiac damage, increased clinical risk and myocardial infarction. Serial measurements may help assess extent of myocardial damage. NOTE: Children less than 1 year old may have higher baseline troponin levels and results should be interpreted in conjunction with the overall clinical context. NOTE: Troponin I testing is performed using a different testing methodology at [facility] than at other [place] [facility]. Direct result comparisons should only be made within the same method. Performed By: #### 8 9577-1 #### AKOSUA SEGOVIA ([id number]) [facility] ([facility]) [address] [place], [place] [id number] Folate [Mass/Vol]on 09-10-19 Interpretation and review of laboratory results Normal [facility] Low <3.4 Borderline 3.4-5.0 Normal >5.0 Patients receiving more than 5 mg/day of biotin may have interference in test results. A sample should be taken no sooner than eight hours after previous dose. Contact the testing laboratory for additional information. [facility] Glucose Test strip manual (B ld) [Mass/Vol]on 09-10-2023 Glucose [Mass/Vol] 282 mg/dL High 74 - 99 mg/dL [facility] Interpretation and review of laboratory results Abnormal [facility] Glucose [Mass/Vol] 282 mg/dL High 74-99 [facility] Comment on above: Performed By: #### 8 9577-1 #### AKOSUA SEGOVIA ([id number]) [facility] ([facility]) [address] [place] [address] 39985 Glucose [Mass/Vol] 163 mg/dL High 74 - 99 mg/dL [facility] Interpretation and review of laboratory results Abnormal [facility] Glucose [Mass/Vol] 163 mg/dL High 74-99 [facility] Comment on above: Performed By: #### 8 9577-1 #### AKOSUA SEGOVIA ([id number]) [facility] ([facility]) [address] [place] [address] 24765 Glucose [Mass/Vol] 184 mg/dL High 74 - 99 mg/dL [facility] Interpretation and review of laboratory results Abnormal [facility] Glucose [Mass/Vol] 184 mg/dL High 74-99 [facility] Comment on above: Performed By: #### 8 9577-1 #### AKOSUA SEGOVIA ([id number]) [facility] ([facility]) [address] [place] [address] 86819 Glucose [Mass/Vol] 96 mg/dL 74 - 99 mg/dL [facility] Interpretation and review of laboratory results Normal [facility] Glucose [Mass/Vol] 96 mg/dL Normal 74-99 [facility] Comment on above: Performed By: #### 2 4321-2 #### AKOSUA SEGOVIA ([id number]) [facility] ([facility]) [address] [place] [address] 43726 Glucose [Mass/Vol] 98 mg/dL 74 - 99 mg/dL [facility] Interpretation and review of laboratory results Normal [facility] Glucose [Mass/Vol] 98 mg/dL Normal 74-99 [facility] Comment on above: Performed By: #### 2 4321-2 #### AKOSUA SEGOVIA ([id number]) [facility] ([facility]) [address] [place] [address] 16636 Glucose [Mass/Vol] 117 mg/dL High 74 - 99 mg/dL [facility] Interpretation and review of laboratory results Abnormal [facility] Glucose [Mass/Vol] 117 mg/dL High 74-99 [facility] Comment on above: Performed By: #### 2 4321-2 #### AKOSUA SEGOVIA ([id number]) [facility] ([facility]) [address] [place], [place] [id number] NM Lung Perfusionon 09-10-19 24 Low probability of a cute pulmonary embolism. Images were interpreted at [facility]. Signed by: Paula Paredes 09/10/2023 7:54 AM Dictation workstation: [id number] Interpreted By: Paula Alcaraz, STUDY: NM LUNG PERFUSION; 09/10/2023 7:49 am INDICATION: Signs/Symptoms:chest pain. COMPARISON: None. ACCESSION NUMBER(S): [id number] ORDERING CLINICIAN: MONSERRAT PRINCE TECHNIQUE: DIVISION OF NUCLEAR MEDICINE PERFUSION LUNG SCAN Multiple perfusion images of the lungs were obtained after the intravenous administration of 4.4 mCi of Tc-99m MAA. SPECT CT images of the lungs were also obtained. FINDINGS: Perfusion images demonstrate heterogeneity without evidence of wedge-shaped abnormalities to suggest acute pulmonary embolism. [facility] Paula Paredes MD - 09/10/2023 Interpreted By: Paula Paredes, STUDY: NM LUNG PERFUSION; 09/10/2023 7:49 am INDICATION: Signs/Symptoms:chest pain. COMPARISON: None. ACCESSION NUMBER(S): [id number] ORDERING CLINICIAN: MONSERRAT PRINCE TECHNIQUE: DIVISION OF NUCLEAR MEDICINE PERFUSION LUNG SCAN Multiple perfusion images of the lungs were obtained after the intravenous administration of 4.4 mCi of Tc-99m MAA. SPECT CT images of the lungs were also obtained. FINDINGS: Perfusion images demonstrate heterogeneity without evidence of wedge-shaped abnormalities to suggest acute pulmonary embolism. IMPRESSION: Low probability of acute pulmonary embolism. Images were interpreted at [facility]. Signed by: Paula Paredes 09/10/2023 7:54 AM Dictation workstation: [id number] [facility] Work Phone: Radiology Study observation (narrative) [facility] Work Phone: NM Lung PerfusionOrdered By: Paula Paredes on 09-10-2023 [facility] Work Phone: US.doppler Lower extremity v ein - bilateralon 09-10-2023 [place] [address] [phone], Vascular Lab Report VASC US LOWER EXTREMITY VENOUS DUPLEX BILATERAL Patient Name: VAL Dwyer Physician: [id number] Indu Sanchez MD Study Date: 09/09/2023 Ordering Provider: [id number] MONSERRAT PRINCE MRN/PID: [id number] Fellow: Technologist: Rosa Elena Pritchard RVGino/AB Date of /Age: 11 1945 / 78 years Technologist 2: Gender: F Admission Status: Inpatient Location Performed: [facility] Diagnosis/ICD: Localized (leg) edema-R60.0; Shortness of breath-R06.02 CPT Codes: 80999 Peripheral venous duplex scan for DVT complete CONCLUSIONS: Right Lower Venous: No evidence of acute deep vein thrombus visualized in the right lower extremity. Cannot rule out thrombus in non-visualized posterior tibial and peroneal veins due to body habitus and swelling. Left Lower Venous: No evidence of acute deep vein thrombus visualized in the left lower extremity. Cannot rule out thrombus in non-visualized posterior tibial and peroneal veins due to body habitus and swelling. Additional Findings: Limited exam due to body habitus. Imaging & Doppler Findings: Right Compressible Thrombus Flow Distal External Iliac Yes None Spontaneous/Phasic CFV Yes None Spontaneous/Phasic PFV Yes None FV Proximal Yes None Spontaneous/Phasic FV Mid Yes None FV Distal Yes None Popliteal Yes None Spontaneous/Phasic Left Compress Thrombus Flow Distal External Iliac Yes None Spontaneous/Phasic CFV Yes None Spontaneous/Phasic PFV Yes None FV Proximal Yes None Spontaneous/Phasic FV Mid Yes None FV Distal Yes None Popliteal Yes None Spontaneous/Phasic [id number] Indu Sanchez MD Final SYNGO Indu Lazcano MD - 09/10/2023 [place] [address] [phone], Vascular Lab Report VASC US LOWER EXTREMITY VENOUS DUPLEX BILATERAL Patient Name: VAL Dwyer Physician: [id number] Indu Sanchez MD Study Date: 09/09/2023 Ordering Provider: [id number] MONSERRAT PRINCE MRN/PID: [id number] Fellow: Technologist: Rosa Elena Pritchard RVT/AB Date of /Age: 11 1945 / 78 years Technologist 2: Gender: F Admission Status: Inpatient Location Performed: [facility] Diagnosis/ICD: Localized (leg) edema-R60.0; Shortness of breath-R06.02 CPT Codes: 51357 Peripheral venous duplex scan for DVT complete CONCLUSIONS: Right Lower Venous: No evidence of acute deep vein thrombus visualized in the right lower extremity. Cannot rule out thrombus in non-visualized posterior tibial and peroneal veins due to body habitus and swelling. Left Lower Venous: No evidence of acute deep vein thrombus visualized in the left lower extremity. Cannot rule out thrombus in non-visualized posterior tibial and peroneal veins due to body habitus and swelling. Additional Findings: Limited exam due to body habitus. Imaging & Doppler Findings: Right Compressible Thrombus Flow Distal External Iliac Yes None Spontaneous/Phasic CFV Yes None Spontaneous/Phasic PFV Yes None FV Proximal Yes None Spontaneous/Phasic FV Mid Yes None FV Distal Yes None Popliteal Yes None Spontaneous/Phasic Left Compress Thrombus Flow Distal External Iliac Yes None Spontaneous/Phasic CFV Yes None Spontaneous/Phasic PFV Yes None FV Proximal Yes None Spontaneous/Phasic FV Mid Yes None FV Distal Yes None Popliteal Yes None Spontaneous/Phasic [id number] Indu Sanchez MD Final [facility] Work Phone: US.doppler Lower extremity v ein - bilateralOrdered By: Indu Ngo on 09-10-2023 [facility] Work Phone: Basic metabolic 2000 panelon 09-09-2023 Anion gap [Moles/Vol] 13 mmol/L 10 - 2 0 mmol/L [facility] Calcium [Mass/Vol] 9.5 mg/dL 8.6 - 10. 3 mg/dL [facility] Chloride [Moles/Vol] 101 mmol/L 98 - 10 7 mmol/L [facility] CO2 [Moles/Vol] 28 mmol/L 21 - 32 mmol/L [facility] Creatinine [Mass/Vol] 2.21 mg/dL High 0.50 - 1.05 mg/dL [facility] GFR/1.73 sq M.predicted among non-blacks MDRD (S/P/Bld) [Vol rate/Area] 22 mL/min/{1.73_m2} Low - PINF [facility] Comment on above: Calculations of te mated GFR are performed using the 2020 CKD-EPI Study Refit equation without the race variable for the IDMS-Traceable creatinine methods. https://jasn.asnjournals.org/content//ASN.765272 9204 Glucose [Mass/Vol] 98 mg/dL 74 - 99 mg/dL [facility] Interpretation and review of laboratory results Abnormal [facility] Potassium [Moles/Vol] 4.2 mmol/L 3.5 - 5.3 mmol/L [facility] Sodium [Moles/Vol] 138 mmol/L 136 - 145 mmol/L [facility] Urea nitrogen [Mass/Vol] 43 mg/dL High 6 - 23 mg/dL [facility] Anion gap [Moles/Vol] 13 mmol/L Normal 10-20 [facility] Comment on above: Performed By: #### 2 4321-2 #### AKOSUA SEGOVIA ([id number]) [facility] ([facility]) [address] [place] [address] 40313 Calcium [Mass/Vol] 9.5 mg/dL Normal 8.6-10.3 [facility] Comment on above: Performed By: #### 2 4321-2 #### AKOSUA SEGOVIA ([id number]) [facility] ([facility]) [address] [place] [address] 54625 Chloride [Moles/Vol] 101 mmol/L Normal 98-107 [facility] Comment on above: Performed By: #### 2 4321-2 #### AKOSUA SEGOVIA ([id number]) [facility] ([facility]) [address] [place] [address] 05810 CO2 [Moles/Vol] 28 mmol/L Normal 21-32 [facility] Comment on above: Performed By: #### 2 4321-2 #### AKOSUA SEGOVIA ([id number]) [facility] ([facility]) [address] [place] [address] 77537 Creatinine [Mass/Vol] 2.21 mg/dL High 0.50-1.05 [facility] Comment on above: Performed By: #### 2 4321-2 #### AKOSUA SEGOVIA ([id number]) [facility] ([facility]) [address] [place] [address] 17411 Glomerular filtration rate/1.73 sq M.predicted 22 mL/min/1.73m*2 Low >60 [facility] Comment on above: Result Comment: Calc ulations of estimated GFR are performed using the 2020 CKD-EPI Study Refit equation without the race variable for the IDMS-Traceable creatinine methods. https://jasn.asnjournals.org/content//ASN.190104 3758 Performed By: #### 2 4321-2 #### AKOSUA SEGOVIA ([id number]) [facility] ([facility]) [address] [place] [address] 67362 Glucose [Mass/Vol] 98 mg/dL Normal 74-99 [facility] Comment on above: Performed By: #### 2 4321-2 #### AKOSUA SEGOVIA ([id number]) [facility] ([facility]) [address] [place] [address] 60718 Potassium [Moles/Vol] 4.2 mmol/L Normal 3.5-5.3 [facility] Comment on above: Performed By: #### 2 4321-2 #### AKOSUA SEGOVIA ([id number]) [facility] ([facility]) [address] [place] [address] 20158 Sodium [Moles/Vol] 138 mmol/L Normal 136-145 [facility] Comment on above: Performed By: #### 2 4321-2 #### AKOSUA SEGOVIA ([id number]) [facility] ([facility]) [address] [place] [address] 16983 Urea nitrogen [Mass/Vol] 43 mg/dL High 6-23 [facility] Comment on above: Performed By: #### 2 4321-2 #### AKOSUA SEGOVIA ([id number]) [facility] ([facility]) [address] [place] [address] 31972 CARDIAC CATHETERIZATION PROC Doni 09-09-2023 CARDIAC CATHETERIZATION PROCEDURE [facility] [employer] [address] [place] [address] [phone], Cardiovascular Catheterization Report Patient Name: VAL E GEORGINA Performing Physician: [id number] Lucio MD Study Date: 09/09/2023 Verifying Physician: David Lucio MD MRN/PID: [id number] Hydrogenation Operator/Co-Scrub: Ordering Provider: [id number] MONSERRAT Ankur NIKI Date of /Age: 11 1945 / 78 years Hydrogenation Operator: Gender: F Fellow: Surgeon: Study: Right and Left Heart Cath Indications: VAL ERICKSON is a 79 year old female who presents with hypertension, diabetes, dyslipidemia and a chest pain assessment of typical angina. Cardiomyopathy. Heart failure. Cardiac arrest: No. Procedure Description: After infiltration with 2% Lidocaine, the right radial artery was cannulated with a modified Seldinger technique. Subsequently a 5 Australian sheath was placed in the right radial artery. Selective coronary catheterization was performed using a 5 Fr catheter(s) exchanged over a guide wire to cannulate the coronary arteries. A 5 Fr [place] catheter was used for left and right coronary artery injections. Multiple injections of contrast were made into the left and right coronary arteries with angiograms recorded in multiple projections. Cardiac output was calculated via the Lydia method. After completion of the procedure, the arterial sheath was pulled and a TR Band Radial Compression Device was utilized to obtain patent hemostasis. Coronary Angiography: The coronary circulation is left dominant. Left Main Coronary Artery: The left main coronary artery is a normal caliber vessel. The left main arises normally from the left coronary sinus of Valsalva and bifurcates into the LAD and circumflex coronary arteries. The left main coronary artery showed a normal vessel. Left Anterior Descending Coronary Artery Distribution: The left anterior descending coronary artery is a normal caliber vessel. The LAD arises normally from the left main coronary artery. The LAD demonstrated a normal vessel. The 1st diagonal branch is a normal caliber vessel. The 1st diagonal branch showed a normal vessel. Circumflex Coronary Artery Distribution: The circumflex coronary artery is a normal caliber vessel. The circumflex arises normally from the left main coronary artery and terminates in the AV groove. The circumflex revealed ectasia and no significant disease or stenosis greater than 30%. The 1st obtuse marginal branch is a medium-sized caliber vessel. The 1st obtuse marginal branch showed a normal vessel. The 2nd obtuse marginal branch is a normal caliber vessel. The 2nd obtuse marginal branch demonstrated a normal vessel. The left posterolateral branch is a normal caliber vessel. The left posterolateral branch showed a normal vessel. The left posterior descending artery is a normal caliber vessel. The left posterior descending artery showed a normal vessel. Right Heart Catheterization: Cardiac output was calculated via the Lydia method. Elevated left sided filling pressures with normal cardiac output. Elevated ventricular filling pressure. Preserved cardiac output at rest. Pulmonary arterial hypertension. PWP 9, PA 45/13 (29), RV 46/0/4, RA 4mmHg; LVeDP 17mmHg CO 4.5, CI 2.08. Right Coronary Artery Distribution: The right coronary artery is a small caliber vessel. The RCA arises normally from the right sinus of Valsalva. The RCA showed a normal vessel. Left Ventriculography: Global left ventricular systolic function was moderately to severely reduced. The LV ejection fraction was 30 to 35%. Complications: No in-lab complications observed. Cardiac Cath Post Procedure Notes: Post Procedure Diagnosis: Angiographically normal coronary arteries. Blood Loss: Estimated blood loss during the procedure was 0 mls. Specimens Removed: Number of specimen(s) removed: none. Recommendations: Maximize medical therapy. Agressive risk factor modification efforts. Follow-up with cardiology clinic. Medical management of coronary artery disease. CONCLUSIONS: 1. Left coronary artery system (LCx) dominance. 2. Non-obstructive CAD. 3. Ectasia LCx. 4. Mod-severely reduced LV systolic function. 5. PWP 9, PA 45/13 (29), RV 46/0/4, RA 4mmHg; LVeDP 17mmHg. 6. CO 4.5, CI 2.08. ICD 10 Codes: Other chest pain-R07.89 CPT Codes: Right & Left Heart Cath w/ventriculography (RHC)([facility])-35815; Moderate Sedation Services initial 15 minutes patient >5 years-50383; Moderate Sedation Services 1st additional 15 minutes patient >5 years-17517 [id number] Cesar Lucio MD Performing Physician Final Normal [facility] CBC W Auto Differential pane l (Bld)on 09-09-2023 Basophils (Bld) [#/Vol] 0.05 10*3/uL [facility] Basophils/100 WBC (Bld) 0.6 % 0.0 - 2.0 % [facility] Eosinophils (Bld) [#/Vol] 0.33 10*3/uL [facility] Eosinophils/100 WBC (Bld) 3.7 % 0.0 - 6.0 % [facility] Erythrocyte distribution width (RBC) [Ratio] 14.0 % 11.5 - 14.5 % [facility] Hematocrit (Bld) [Volume fraction] 31.2 % Low 36.0 - 46.0 % [facility] Hemoglobin (Bld) [Mass/Vol] 9.8 g/dL Low 12.0 - 16.0 g/dL [facility] Immature granulocytes (Bld) [#/Vol] 0.03 10*3/uL [facility] Immature granulocytes/100 WBC (Bld) 0.3 % 0.0 - 0.9 % [facility] Comment on above: Immature Granulocyte Count (IG) includes promyelocytes, myelocytes and metamyelocytes but does not include bands. Percent differential counts (%) should be interpreted in the context of the absolute cell counts (cells/UL). Interpretation and review of laboratory results Abnormal [facility] Lymphocytes (Bld) [#/Vol] 1.32 10*3/uL [facility] Lymphocytes/100 WBC (Bld) 14.8 % 13.0 - 44.0 % [facility] MCH (RBC) [Entitic mass] 31.3 pg 26.0 - 34.0 pg [facility] MCHC (RBC) [Mass/Vol] 31.4 g/dL Low 32.0 - 36.0 g/dL [facility] MCV (RBC) [Entitic vol] 100 fL 80 - 100 fL [facility] Monocytes (Bld) [#/Vol] 0.67 10*3/uL [facility] Monocytes/100 WBC (Bld) 7.5 % 2.0 - 10.0 % [facility] Neutrophils (Bld) [#/Vol] 6.50 10*3/uL High [facility] Comment on above: Percent differential counts (%) should be interpreted in the context of the absolute cell counts (cells/uL). Neutrophils/100 WBC (Bld) 73.1 % 40.0 - 80.0 % [facility] Nucleated RBC/100 WBC (Bld) [Ratio] 0.0 % [facility] Platelets (Bld) [#/Vol] 196 10*3/uL [facility] RBC (Bld) [#/Vol] 3.13 10*6/uL Low [facility] WBC (Bld) [#/Vol] 8.9 10*3/uL [facility] Basophils (Bld) [#/Vol] 0.05 x10*3/uL Normal 0.00-0.10 [facility] Comment on above: Performed By: #### 5 7021-8 #### AKOSUA SEGOVIA ([id number]) [facility] ([facility]) [address] [place] [address] 09512 Basophils/100 WBC (Bld) 0.6 % Normal 0.0-2.0 [facility] Comment on above: Performed By: #### 5 7021-8 #### AKOSUA SEGOVIA ([id number]) [facility] ([facility]) [address] [place] [address] 46307 Eosinophils (Bld) [#/Vol] 0.33 x10*3/uL Normal 0.00-0.40 [facility] Comment on above: Performed By: #### 5 7021-8 #### AKOSUA SEGOVIA ([id number]) [facility] ([facility]) [address] [place] [address] 92984 Eosinophils/100 WBC (Bld) 3.7 % Normal 0.0-6.0 [facility] Comment on above: Performed By: #### 5 7021-8 #### AKOSUA SEGOVIA ([id number]) [facility] ([facility]) [address] [place] [address] Erythrocyte distribution width (RBC) [Ratio] 14.0 % Normal 11.5-14.5 [facility] Comment on above: Performed By: #### 5 7021-8 #### AKOSUA SEGOVIA ([id number]) [facility] ([facility]) [address] [place] [address] Hematocrit (Bld) [Volume fraction] 31.2 % Low 36.0-46.0 [facility] Comment on above: Performed By: #### 5 7021-8 #### AKOSUA SEGOVIA ([id number]) [facility] ([facility]) [address] [place] [address] Hemoglobin (Bld) [Mass/Vol] 9.8 g/dL Low 12.0-16.0 [facility] Comment on above: Performed By: #### 5 7021-8 #### AKOSUA SEGOVIA ([id number]) [facility] ([facility]) [address] [place] [address] Immature granulocytes (Bld) [#/Vol] 0.03 x10*3/uL Normal 0.00-0.50 [facility] Comment on above: Performed By: #### 5 7021-8 #### AKOSUA SEGOVIA ([id number]) [facility] ([facility]) [address] [place] [address] Immature granulocytes/100 WBC (Bld) 0.3 % Normal 0.0-0.9 [facility] Comment on above: Result Comment: Mely ture Granulocyte Count (IG) includes promyelocytes, myelocytes and metamyelocytes but does not include bands. Percent differential counts (%) should be interpreted in the context of the absolute cell counts (cells/UL). Performed By: #### 5 7021-8 #### AKOSUA SEGOVIA ([id number]) [facility] ([facility]) [address] [place], [place] [phone] Lymphocytes (Bld) [#/Vol] 1.32 x10*3/uL Normal 0.80-3.00 [facility] Comment on above: Performed By: #### 5 7021-8 #### AKOSUA SEGOVIA ([id number]) [facility] ([facility]) [address] [place] [address] 95254 Lymphocytes/100 WBC (Bld) 14.8 % Normal 13.0-44.0 [facility] Comment on above: Performed By: #### 5 7021-8 #### AKOSUA SEGOVIA ([id number]) [facility] ([facility]) [address] [place] [address] 31872 MCH (RBC) [Entitic mass] 31.3 pg Normal 26.0-34.0 [facility] Comment on above: Performed By: #### 5 7021-8 #### AKOSUA SEGOVIA ([id number]) [facility] ([facility]) [address] [place] [address] 94844 MCHC (RBC) [Mass/Vol] 31.4 g/dL Low 32.0-36.0 [facility] Comment on above: Performed By: #### 5 7021-8 #### AKOSUA SEGOVIA ([id number]) [facility] ([facility]) [address] [place] [address] 09452 MCV (RBC) [Entitic vol] 100 fL Normal 80-100 [facility] Comment on above: Performed By: #### 5 7021-8 #### AKOSUA SEGOVIA ([id number]) [facility] ([facility]) [address] [place] [address] 75775 Monocytes (Bld) [#/Vol] 0.67 x10*3/uL Normal 0.05-0.80 [facility] Comment on above: Performed By: #### 5 7021-8 #### AKOSUA SEGOVIA ([id number]) [facility] ([facility]) [address] [place] [address] 70979 Monocytes/100 WBC (Bld) 7.5 % Normal 2.0-10.0 [facility] Comment on above: Performed By: #### 5 7021-8 #### AKOSUA SEGOVIA ([id number]) [facility] ([facility]) [address] [place] [address] 77747 Neutrophils (Bld) [#/Vol] 6.50 x10*3/uL High 1.60-5.50 [facility] Comment on above: Result Comment: Perc ent differential counts (%) should be interpreted in the context of the absolute cell counts (cells/uL). Performed By: #### 5 7021-8 #### AKOSUA SEGOVIA ([id number]) [facility] ([facility]) [address] [place] [address] 72785 Neutrophils/100 WBC (Bld) 73.1 % Normal 40.0-80.0 [facility] Comment on above: Performed By: #### 5 7021-8 #### AKOSUA SEGOVIA ([id number]) [facility] ([facility]) [address] [place], [place] [phone] Nucleated RBC/100 WBC (Bld) [Ratio] 0.0 /100 WBCs Normal 0.0-0.0 [facility] Comment on above: Performed By: #### 5 7021-8 #### AKOSUA SEGOVIA ([id number]) [facility] ([facility]) [address] [place] [address] 76626 Platelets (Bld) [#/Vol] 196 x10*3/uL Normal 150-450 [facility] Comment on above: Performed By: #### 5 7021-8 #### AKOSUA SEGOVIA ([id number]) [facility] ([facility]) [address] [place] [address] 20015 RBC (Bld) [#/Vol] 3.13 x10*6/uL Low 4.00-5.20 [facility] Comment on above: Performed By: #### 5 7021-8 #### AKOSUA SEGOVIA ([id number]) [facility] ([facility]) [address] [place] [address] 60750 WBC (Bld) [#/Vol] 8.9 x10*3/uL Normal 4.4-11.3 [facility] Comment on above: Performed By: #### 5 7021-8 #### AKOSUA SEGOVIA ([id number]) [facility] ([facility]) [address] [place] [address] Cardiac catheterization stud yon 09-09-2023 [facility] [employer] [address] [place] [address] [phone], Cardiovascular Catheterization Report Patient Name: VAL ERICKSON Performing Physician: [id number] Cesar Lucio MD Study Date: 09/09/2023 Verifying Physician: [id number] Cesar Lucio MD MRN/PID: [id number] Hydrogenation Operator/Co-Scrub: Ordering Provider: [id number] MONSERRAT PRINCE Date of /Age: 11 1945 / 78 years Hydrogenation Operator: Gender: F Fellow: Surgeon: Study: Right and Left Heart Cath Indications: VAL ERICKSON is a 79 year old female who presents with hypertension, diabetes, dyslipidemia and a chest pain assessment of typical angina. Cardiomyopathy. Heart failure. Cardiac arrest: No. Procedure Description: After infiltration with 2% Lidocaine, the right radial artery was cannulated with a modified Seldinger technique. Subsequently a 5 Australian sheath was placed in the right radial artery. Selective coronary catheterization was performed using a 5 Fr catheter(s) exchanged over a guide wire to cannulate the coronary arteries. A 5 Fr [place] catheter was used for left and right coronary artery injections. Multiple injections of contrast were made into the left and right coronary arteries with angiograms recorded in multiple projections. Cardiac output was calculated via the Lydia method. After completion of the procedure, the arterial sheath was pulled and a TR Band Radial Compression Device was utilized to obtain patent hemostasis. Coronary Angiography: The coronary circulation is left dominant. Left Main Coronary Artery: The left main coronary artery is a normal caliber vessel. The left main arises normally from the left coronary sinus of Valsalva and bifurcates into the LAD and circumflex coronary arteries. The left main coronary artery showed a normal vessel. Left Anterior Descending Coronary Artery Distribution: The left anterior descending coronary artery is a normal caliber vessel. The LAD arises normally from the left main coronary artery. The LAD demonstrated a normal vessel. The 1st diagonal branch is a normal caliber vessel. The 1st diagonal branch showed a normal vessel. Circumflex Coronary Artery Distribution: The circumflex coronary artery is a normal caliber vessel. The circumflex arises normally from the left main coronary artery and terminates in the AV groove. The circumflex revealed ectasia and no significant disease or stenosis greater than 30%. The 1st obtuse marginal branch is a medium-sized caliber vessel. The 1st obtuse marginal branch showed a normal vessel. The 2nd obtuse marginal branch is a normal caliber vessel. The 2nd obtuse marginal branch demonstrated a normal vessel. The left posterolateral branch is a normal caliber vessel. The left posterolateral branch showed a normal vessel. The left posterior descending artery is a normal caliber vessel. The left posterior descending artery showed a normal vessel. Right Heart Catheterization: Cardiac output was calculated via the Lydia method. Elevated left sided filling pressures with normal cardiac output. Elevated ventricular filling pressure. Preserved cardiac output at rest. Pulmonary arterial hypertension. PWP 9, PA 45/13 (29), RV 46/0/4, RA 4mmHg; LVeDP 17mmHg CO 4.5, CI 2.08. Right Coronary Artery Distribution: The right coronary artery is a small caliber vessel. The RCA arises normally from the right sinus of Valsalva. The RCA showed a normal vessel. Left Ventriculography: Global left ventricular systolic function was moderately to severely reduced. The LV ejection fraction was 30 to 35%. Complications: No in-lab complications observed. Cardiac Cath Post Procedure Notes: Post Procedure Diagnosis: Angiographically normal coronary arteries. Blood Loss: Estimated blood loss during the procedure was 0 mls. Specimens Removed: Number of specimen(s) removed: none. Recommendations: Maximize medical therapy. Agressive risk factor modification efforts. Follow-up with cardiology clinic. Medical management of coronary artery disease. CONCLUSIONS: 1. Left coronary artery system (LCx) dominance. 2. Non-obstructive CAD. 3. Ectasia LCx. 4. Mod-severely reduced LV systolic function. 5. PWP 9, PA 45/13 (29), RV 46/0/4, RA 4mmHg; LVeDP 17mmHg. 6. CO 4.5, CI 2.08. ICD 10 (more content not included)... Cesar mSall MD - 09/09/2023 [facility] [employer] [address] [place] [address] [phone], Cardiovascular Catheterization Report Patient Name: VAL ERICKSON Performing Physician: [id number] Cesar Lucio MD Study Date: 09/09/2023 Verifying Physician: [id number] Lucio MD MRN/PID: [id number] Hydrogenation Operator/Co-Scrub: Ordering Provider: [id number] MONSERRAT PRINCE Date of /Age: 11 1945 / 78 years Hydrogenation Operator: Gender: F Fellow: Surgeon: Study: Right and Left Heart Cath Indications: VAL ERICKSON is a 79 year old female who presents with hypertension, diabetes, dyslipidemia and a chest pain assessment of typical angina. Cardiomyopathy. Heart failure. Cardiac arrest: No. Procedure Description: After infiltration with 2% Lidocaine, the right radial artery was cannulated with a modified Seldinger technique. Subsequently a 5 Australian sheath was placed in the right radial artery. Selective coronary catheterization was performed using a 5 Fr catheter(s) exchanged over a guide wire to cannulate the coronary arteries. A 5 Fr [place] catheter was used for left and right coronary artery injections. Multiple injections of contrast were made into the left and right coronary arteries with angiograms recorded in multiple projections. Cardiac output was calculated via the Lydia method. After completion of the procedure, the arterial sheath was pulled and a TR Band Radial Compression Device was utilized to obtain patent hemostasis. Coronary Angiography: The coronary circulation is left dominant. Left Main Coronary Artery: The left main coronary artery is a normal caliber vessel. The left main arises normally from the left coronary sinus of Valsalva and bifurcates into the LAD and circumflex coronary arteries. The left main coronary artery showed a normal vessel. Left Anterior Descending Coronary Artery Distribution: The left anterior descending coronary artery is a normal caliber vessel. The LAD arises normally from the left main coronary artery. The LAD demonstrated a normal vessel. The 1st diagonal branch is a normal caliber vessel. The 1st diagonal branch showed a normal vessel. Circumflex Coronary Artery Distribution: The circumflex coronary artery is a normal caliber vessel. The circumflex arises normally from the left main coronary artery and terminates in the AV groove. The circumflex revealed ectasia and no significant disease or stenosis greater than 30%. The 1st obtuse marginal branch is a medium-sized caliber vessel. The 1st obtuse marginal branch showed a normal vessel. The 2nd obtuse marginal branch is a normal caliber vessel. The 2nd obtuse marginal branch demonstrated a normal vessel. The left posterolateral branch is a normal caliber vessel. The left posterolateral branch showed a normal vessel. The left posterior descending artery is a normal caliber vessel. The left posterior descending artery showed a normal vessel. Right Heart Catheterization: Cardiac output was calculated via the Lydia method. Elevated left sided filling pressures with normal cardiac output. Elevated ventricular filling pressure. Preserved cardiac output at rest. Pulmonary arterial hypertension. PWP 9, PA 45/13 (29), RV 46/0/4, RA 4mmHg; LVeDP 17mmHg CO 4.5, CI 2.08. Right Coronary Artery Distribution: The right coronary artery is a small caliber vessel. The RCA arises normally from the right sinus of Valsalva. The RCA showed a normal vessel. Left Ventriculography: Global left ventricular systolic function was moderately to severely reduced. The LV ejection fraction was 30 to 35%. Complications: No in-lab complications observed. Cardiac Cath Post Procedure Notes: Post Procedure Diagnosis: Angiographically normal coronary arteries. Blood Loss: Estimated blood loss during the procedure was 0 mls. Specimens Removed: Number of specimen(s) removed: none. Recommendations: Maximize medical therapy. Agressive risk factor modification efforts. Follow-up with cardiology clinic. Medical management of coronary artery disease. ___ CONCLUSIONS: 1. Left coronary artery system (LCx) dominance. 2. Non-obstructive CAD. 3. Ectasia LCx. 4. Mod-severely reduced LV systolic function. 5. PWP 9, PA 45/13 (29), RV 46/0/4, RA 4mmHg; LVeDP 17mmHg. 6. CO 4.5, CI 2.08. ICD 10 Codes: Other chest pain-R07.89 CPT Codes: Right & Left Heart Cath w/ventriculography (RHC)([facility])-35942; Moderate Sedation Services initial 15 minutes patient >5 years-[id number]; Moderate Sedation Services 1st additional 15 minutes patient >5 years-[id number] Cesar Lucio MD Performing Phys[place] [id number] Cesar Reynoso (more content not included)... [facility] Work Phone: [facility] Work Phone: D-dimer, VTE Exclusionon Fibrin D-dimer FEU (PPP) [Mass/Vol] 1012 High NINF [facility] ECG 12-LEADon 09-09-2023 ECG 12-LEAD Ventricular Rate 88 Atrial Rate 88 P-R Interval 244 QRS Duration 130 Q-T Interval 400 QTC Calculation(Bazett) 484 P Petersburg 60 R Petersburg -50 T [place] 197 QRS Count 14 Q Onset 216 P Onset 94 P Offset 164 T Offset 416 QTC Fredericia 454 Diagnosis Sinus rhythm with 1st degree AV block Left axis deviation Left bundle branch block Abnormal ECG When compared with ECG of 09-SEP-2023 04:53, (unconfirmed) ST now depressed in Inferior leads ST less depressed in Lateral leads Nonspecific T wave abnormality now evident in Inferior leads See ED provider note for full interpretation and clinical correlation Confirmed by Chrissy Florian ([id number]) on 09/13/2023 11:48:02 AM Normal [facility] ECG 12-LEAD Ventricular Rate 95 Atrial Rate 95 P-R Interval 218 QRS Duration 132 Q-T Interval 390 QTC Calculation(Bazett) 490 P [place] 63 R Petersburg -38 T [place] 145 QRS Count 16 Q Onset 205 P Onset 96 P Offset 160 T Offset 400 QTC Fredericia 454 Diagnosis Sinus rhythm with 1st degree AV block Left axis deviation Left bundle branch block Abnormal ECG When compared with ECG of 06-SEP-2023 18:46, (unconfirmed) Sinus rhythm has replaced Atrial fibrillation Left bundle branch block is now Present See ED provider note for full interpretation and clinical correlation Confirmed by Chrissy Florian ([id number]) on 09/13/2023 11:47:21 AM Normal [facility] Fibrin D-dimer FEUon 024 Fibrin D-dimer FEU (PPP) [Mass/Vol] 1012 ng/mL FEU High <=500 [facility] Comment on above: Order Comment: The V TE Exclusion D-Dimer assay is reported in ng/mL Fibrinogen Equivalent Units (FEU). Per nurses superintendent's instructions for use, a value of less than 500 ng/mL (FEU) may help to exclude DVT or PE in outpatients when the assay is used with a clinical pretest probability assessment.(AEMR must utilize and document eCalc 'Wells Score Deep Vein Thrombosis Risk' for DVT exclusion only. Emergency Department should utilize Guidelines for Emergency Department Use of the VTE Exclusion D-Dimer and Clinical Pretest probability assessment model for DVT or PE exclusion.) Performed By: #### 4 8065-7 #### SOUTH JULIETTE ([id number]) [facility] ([facility]) [address] [place] [address] Fibrin D-dimer FEU (PPP) [Ma ss/Vol]on 09-09-2023 Interpretation and review of laboratory results Abnormal [facility] The VTE Exclusion D-Dimer assay is reported in ng/mL Fibrinogen Equivalent Units (FEU). Per nurses superintendent's instructions for use, a value of less than 500 ng/mL (FEU) may help to exclude DVT or PE in outpatients when the assay is used with a clinical pretest probability assessment.(AEMR must utilize and document eCalc 'Wells Score Deep Vein Thrombosis Risk' for DVT exclusion only. Emergency Department should utilize Guidelines for Emergency Department Use of the VTE Exclusion D-Dimer and Clinical Pretest probability assessment model for DVT or PE exclusion.) [facility] Glucose Test strip manual (B ld) [Mass/Vol]on 09-09-2023 Glucose [Mass/Vol] 214 mg/dL High 74 - 99 mg/dL [facility] Interpretation and review of laboratory results Abnormal [facility] Glucose [Mass/Vol] 214 mg/dL High 74-99 [facility] Comment on above: Performed By: #### 2 4321-2 #### AKOSUA SEGOVIA ([id number]) [facility] ([facility]) [facility] [place] [address] Glucose [Mass/Vol] 116 mg/dL High 74 - 99 mg/dL [facility] Interpretation and review of laboratory results Abnormal [facility] Glucose [Mass/Vol] 116 mg/dL High 74-99 [facility] Comment on above: Performed By: #### 2 4321-2 #### AKOSUA SEGOVIA ([id number]) [facility] ([facility]) [address] [place] [address] Glucose [Mass/Vol] 112 mg/dL High 74 - 99 mg/dL [facility] Interpretation and review of laboratory results Abnormal [facility] Glucose [Mass/Vol] 112 mg/dL High 74-99 [facility] Comment on above: Performed By: #### 2 4321-2 #### AKOSUA SEGOVIA ([id number]) [facility] ([facility]) [address] [place] [address] Glucose [Mass/Vol] 161 mg/dL High 74 - 99 mg/dL [facility] Interpretation and review of laboratory results Abnormal [facility] Glucose [Mass/Vol] 161 mg/dL High 74-99 [facility] Comment on above: Performed By: #### 2 341-6 #### AKOSUA SEGOVIA ([id number]) [facility] ([facility]) [address] [place] [address] Lipid 1996 panelon 4 Cholesterol [Mass/Vol] 87 mg/dL 0 - 199 mg/dL [facility] Comment on above: Age Desirable Borderline High High 0-19 Y 0 - 169 170 - 199 >/= 200 20-24 Y 0 - 189 190 - 224 >/= 225 >24 Y 0 - 199 200 - 239 >/= 240 All ranges are based on fasting samples. Specific therapeutic targets will vary based on patient-specific cardiac risk. Pediatric guidelines reference:Pediatrics 2011, 128(S5).Adult guidelines reference: NCEP ATPIII Guidelines,CLARISSA 2001, 258:8686-71 Venipuncture immediately after or during the administration of Metamizole may lead to falsely low results. Testing should be performed immediately prior to Metamizole dosing. Cholesterol in HDL [Mass/Vol] 37.0 mg/dL [facility] Comment on above: Age Very Low Low Normal High 0-19 Y < 35 < 40 40-45 ---- 20-24 Y ---- < 40 >45 ---- >24 Y ---- < 40 40-60 >60 Cholesterol in LDL [Mass/Vol] 27 mg/dL NINF - 99 mg/dL [facility] Comment on above: Near Borderline AGE Desirable Optimal High High Very High 0-19 Y 0 - 109 --- 110-129 >/= 130 ---- 20-24 Y 0 - 119 --- 120-159 >/= 160 ---- >24 Y 0 - 99 100-129 130-159 160-189 >/=190 Cholesterol in VLDL [Mass/Vol] 23 mg/dL 0 - 40 mg/dL [facility] Cholesterol.total/Cho lesterol in HDL [Mass ratio] 2.4 {ratio} [facility] Comment on above: Ref Values Desirable < 3.4 High Risk > 5.0 Non HDL Cholesterol 50 mg/dL 0 - 149 mg/dL [facility] Comment on above: Age Desirable Borderline High High Very High 0-19 Y 0 - 119 120 - 144 >/= 145 >/= 160 20-24 Y 0 - 149 150 - 189 >/= 190 ---- >24 Y 30 mg/dL above LDL Cholesterol goal Triglyceride [Mass/Vol] 114 mg/dL 0 - 149 mg/dL [facility] Comment on above: Age Desirable Borderline High High Very High 0 D-90 D 19 - 174 ---- ---- ---- 91 D- 9 Y 0 - 74 75 - 99 >/= 100 ---- 10-19 Y 0 - 89 90 - 129 >/= 130 ---- 20-24 Y 0 - 114 115 - 149 >/= 150 ---- >24 Y 0 - 149 150 - 199 200- 499 >/= 500 Venipuncture immediately after or during the administration of Metamizole may lead to falsely low results. Testing should be performed immediately prior to Metamizole dosing. [facility] Cholesterol [Mass/Vol] 87 mg/dL Normal 0-199 [facility] Comment on above: Result Comment: Age Desirable Borderline High High 0-19 Y 0 - 169 170 - 199 >/= 200 20-24 Y 0 - 189 190 - 224 >/= 225 >24 Y 0 - 199 200 - 239 >/= 240 All ranges are based on fasting samples. Specific therapeutic targets will vary based on patient-specific cardiac risk. Pediatric guidelines reference:Pediatrics 2011, 128(S5).Adult guidelines reference: NCEP ATPIII Guidelines,CLARISSA 2001, 258:2486-97 Venipuncture immediately after or during the administration of Metamizole may lead to falsely low results. Testing should be performed immediately prior to Metamizole dosing. Performed By: #### 2 4321-2 #### AKOSUA SEGOVIA ([id number]) [facility] ([facility]) [address] [place] [address] Cholesterol in HDL [Mass/Vol] 37.0 mg/dL Normal [facility] Comment on above: Result Comment: Age Very Low Low Normal High 0-19 Y < 35 < 40 40-45 ---- 20-24 Y ---- < 40 >45 ---- >24 Y ---- < 40 40-60 >60 Performed By: #### 2 4321-2 #### AKOSUA SEGOVIA ([id number]) [facility] ([facility]) [address] [place] [address] Cholesterol in LDL [Mass/Vol] 27 mg/dL Normal <=99 [facility] Comment on above: Result Comment: Near Borderline AGE Desirable Optimal High High Very High 0-19 Y 0 - 109 --- 110-129 >/= 130 ---- 20-24 Y 0 - 119 --- 120-159 >/= 160 ---- >24 Y 0 - 99 100-129 130-159 160-189 >/=190 Performed By: #### 2 4321-2 #### AKOSUA SEGOVIA ([id number]) [facility] ([facility]) [address] [place] [address] Cholesterol in VLDL [Mass/Vol] 23 mg/dL Normal 0-40 [facility] Comment on above: Performed By: #### 2 4321-2 #### AKOSUA SEGOVIA ([id number]) [facility] ([facility]) [address] [place] [address]798 CHOLESTEROL/HDL RATIO 2.4 Normal [facility] Comment on above: Result Comment: Ref Values Desirable < 3.4 High Risk > 5.0 Performed By: #### 2 4321-2 #### AKOSUA SEGOVIA ([id number]) [facility] ([facility]) [address] [place] [address] 26891 NON HDL CHOLESTEROL 50 mg/dL Normal 0-149 [facility] Comment on above: Result Comment: Age Desirable Borderline High High Very High 0-19 Y 0 - 119 120 - 144 >/= 145 >/= 160 20-24 Y 0 - 149 150 - 189 >/= 190 ---- >24 Y 30 mg/dL above LDL Cholesterol goal Performed By: #### 2 4321-2 #### AKOSUA SEGOVIA ([id number]) [facility] ([facility]) [address] [place] [address] Triglyceride [Mass/Vol] 114 mg/dL Normal 0-149 [facility] Comment on above: Result Comment: Age Desirable Borderline High High Very High 0 D-90 D 19 - 174 ---- ---- ---- 91 D- 9 Y 0 - 74 75 - 99 >/= 100 ---- 10-19 Y 0 - 89 90 - 129 >/= 130 ---- 20-24 Y 0 - 114 115 - 149 >/= 150 ---- >24 Y 0 - 149 150 - 199 200- 499 >/= 500 Venipuncture immediately after or during the administration of Metamizole may lead to falsely low results. Testing should be performed immediately prior to Metamizole dosing. Performed By: #### 2 4321-2 #### AKOSUA SEGOVIA ([id number]) [facility] ([facility]) [address] [place] [address] NM LUNG PERFUSIONon 09-09-19 24 NM LUNG PERFUSION Interpreted By: Paula Alcaraz, STUDY: NM LUNG PERFUSION; 09/10/2023 7:49 am INDICATION: Signs/Symptoms:chest pain. COMPARISON: None. ACCESSION NUMBER(S): [id number] ORDERING CLINICIAN: MONSERRAT PRINCE TECHNIQUE: DIVISION OF NUCLEAR MEDICINE PERFUSION LUNG SCAN Multiple perfusion images of the lungs were obtained after the intravenous administration of 4.4 mCi of Tc-99m MAA. SPECT CT images of the lungs were also obtained. FINDINGS: Perfusion images demonstrate heterogeneity without evidence of wedge-shaped abnormalities to suggest acute pulmonary embolism. IMPRESSION: Low probability of acute pulmonary embolism. Images were interpreted at [facility]. Signed by: Paula Paredes 09/10/2023 7:54 AM Dictation workstation: [id number] Normal [facility] PT and aPTT panel Coag (PPP) on 09-09-2023 aPTT Coag (PPP) [Time] 31 s [facility] INR Coag (PPP) [Relative time] 1.1 {INR} 0.9 - 1.1 [facility] Interpretation and review of laboratory results Abnormal [facility] PT Coag (PPP) [Time] 13.3 s [facility] The APTT is no longe r used for monitoring Unfractionated Heparin Therapy. For monitoring Heparin Therapy, use the Heparin Assay. [facility] aPTT Coag (PPP) [Time] 31 s Normal 27-38 [facility] Comment on above: Order Comment: The A PTT is no longer used for monitoring Unfractionated Heparin Therapy. For monitoring Heparin Therapy, use the Heparin Assay. Performed By: #### 3 4529-8 #### AKOSUA SEGOVIA ([id number]) [facility] ([facility]) [address] [place] [address] INR Coag (PPP) [Relative time] 1.1 Normal 0.9-1.1 [facility] Comment on above: Order Comment: The A PTT is no longer used for monitoring Unfractionated Heparin Therapy. For monitoring Heparin Therapy, use the Heparin Assay. Performed By: #### 3 4529-8 #### AKOSUA SEGOVIA ([id number]) [facility] ([facility]) [address] [place] [address] PT Coag (PPP) [Time] 13.3 s High 9.8-12.8 [facility] Comment on above: Order Comment: The A PTT is no longer used for monitoring Unfractionated Heparin Therapy. For monitoring Heparin Therapy, use the Heparin Assay. Performed By: #### 3 4529-8 #### SOUTH JULIETTE ([id number]) [facility] ([facility]) [facility] [place] [address] Tropinin I.cardiac panel Hig h sensitivity methodon 09-09-2023 Interpretation and review of laboratory results Abnormal [facility] Less than 99th percentile of normal range cutoff- Female and children under 18 years old <14 ng/L; Male <21 ng/L: Negative Repeat testing should be performed if clinically indicated. Female and children under 18 years old 14-50 ng/L; Male 21-50 ng/L: Consistent with possible cardiac damage and possible increased clinical risk. Serial measurements may help to assess extent of myocardial damage. >50 ng/L: Consistent with cardiac damage, increased clinical risk and myocardial infarction. Serial measurements may help assess extent of myocardial damage. NOTE: Children less than 1 year old may have higher baseline troponin levels and results should be interpreted in conjunction with the overall clinical context. NOTE: Troponin I testing is performed using a different testing methodology at [facility] than at other [facility]. Direct result comparisons should only be made within the same method. [facility] Interpretation and review of laboratory results Abnormal [facility] Less than 99th percentile of normal range cutoff- Female and children under 18 years old <14 ng/L; Male <21 ng/L: Negative Repeat testing should be performed if clinically indicated. Female and children under 18 years old 14-50 ng/L; Male 21-50 ng/L: Consistent with possible cardiac damage and possible increased clinical risk. Serial measurements may help to assess extent of myocardial damage. >50 ng/L: Consistent with cardiac damage, increased clinical risk and myocardial infarction. Serial measurements may help assess extent of myocardial damage. NOTE: Children less than 1 year old may have higher baseline troponin levels and results should be interpreted in conjunction with the overall clinical context. NOTE: Troponin I testing is performed using a different testing methodology at [facility] than at other system [facility]. Direct result comparisons should only be made within the same method. [facility] Troponin I, High Sensitivity , Initialon 09-09-2023 Tropinin I.cardiac panel High sensitivity method 20 ng/L High 0 - 13 ng/L [facility] Troponin I.cardiac panelon 0 09-09-2023 Tropinin I.cardiac panel High sensitivity method 21 ng/L High 0-13 [facility] Comment on above: Order Comment: Less than 99th percentile of normal range cutoff- Female and children under 18 years old <14 ng/L; Male <21 ng/L: Negative Repeat testing should be performed if clinically indicated. Female and children under 18 years old 14-50 ng/L; Male 21-50 ng/L: Consistent with possible cardiac damage and possible increased clinical risk. Serial measurements may help to assess extent of myocardial damage. >50 ng/L: Consistent with cardiac damage, increased clinical risk and myocardial infarction. Serial measurements may help assess extent of myocardial damage. NOTE: Children less than 1 year old may have higher baseline troponin levels and results should be interpreted in conjunction with the overall clinical context. NOTE: Troponin I testing is performed using a different testing methodology at [facility] than at other [facility]. Direct result comparisons should only be made within the same method. Performed By: #### 8 9577-1 #### SOUTH JULIETTE ([id number]) [facility] ([facility]) [address] [place] [address] Tropinin I.cardiac panel High sensitivity method 20 ng/L High 0-13 [facility] Comment on above: Order Comment: Less than 99th percentile of normal range cutoff- Female and children under 18 years old <14 ng/L; Male <21 ng/L: Negative Repeat testing should be performed if clinically indicated. Female and children under 18 years old 14-50 ng/L; Male 21-50 ng/L: Consistent with possible cardiac damage and possible increased clinical risk. Serial measurements may help to assess extent of myocardial damage. >50 ng/L: Consistent with cardiac damage, increased clinical risk and myocardial infarction. Serial measurements may help assess extent of myocardial damage. NOTE: Children less than 1 year old may have higher baseline troponin levels and results should be interpreted in conjunction with the overall clinical context. NOTE: Troponin I testing is performed using a different testing methodology at [facility] than at other [facility]. Direct result comparisons should only be made within the same method. Performed By: #### 8 9577-1 #### SOUTH JULIETTE ([id number]) [facility] ([facility]) [address] [place] [address] Troponin, High Sensitivity, 1 Houron 09-09-2023 Tropinin I.cardiac panel High sensitivity method 21 ng/L High 0 - 13 ng/L [facility] US.doppler Lower extremity v ein - bilateralon 09-09-2023 Radiology Study observation (narrative) [facility] Work Phone: VASC US LOWER EXTREMITY VENO US DUPLEX BILATERALon 09-09-2023 VAS US LOWER EXTREMITY [place] [address] [phone], Vascular Lab Report VAS US LOWER EXTREMITY VENOUS DUPLEX BILATERAL Patient Name: VAL Dwyer Physician: [id number] Indu Sanchez MD Study Date: 09/09/2023 Ordering Provider: [id number] MONSERRAT PRINCE MRN/PID: [id number] Fellow: Technologist: Rosa Elena Pritchard RVT/ Date of /Age: 11 1945 / 78 years Technologist 2: Gender: F Admission Status: Inpatient Location Performed: [facility] Diagnosis/ICD: Localized (leg) edema-R60.0; Shortness of breath-R06.02 CPT Codes: 34274 Peripheral venous duplex scan for DVT complete CONCLUSIONS: Right Lower Venous: No evidence of acute deep vein thrombus visualized in the right lower extremity. Cannot rule out thrombus in non-visualized posterior tibial and peroneal veins due to body habitus and swelling. Left Lower Venous: No evidence of acute deep vein thrombus visualized in the left lower extremity. Cannot rule out thrombus in non-visualized posterior tibial and peroneal veins due to body habitus and swelling. Additional Findings: Limited exam due to body habitus. Imaging & Doppler Findings: Right Compressible Thrombus Flow Distal External Iliac Yes None Spontaneous/Phasic CFV Yes None Spontaneous/Phasic PFV Yes None FV Proximal Yes None Spontaneous/Phasic FV Mid Yes None FV Distal Yes None Popliteal Yes None Spontaneous/Phasic Left Compress Thrombus Flow Distal External Iliac Yes None Spontaneous/Phasic CFV Yes None Spontaneous/Phasic PFV Yes None FV Proximal Yes None Spontaneous/Phasic FV Mid Yes None FV Distal Yes None Popliteal Yes None Spontaneous/Phasic [id number] Indu Sanchez MD Final [facility] XR CHEST 1 VIEWon 09-09-2023 XR CHEST 1 VIEW Interpreted By: Latrell Vargas, STUDY: XR CHEST 1 VIEW; 09/09/2023 5:13 am INDICATION: Signs/Symptoms:cp. COMPARISON: Chest radiograph 10/04/2022. ACCESSION NUMBER(S): [id number] ORDERING CLINICIAN: TONY MENENDEZ FINDINGS: CARDIOMEDIASTINAL SILHOUETTE: Cardiomediastinal silhouette is enlarged and stable. There is unchanged left subclavian approach pacemaker/AICD. There is also a left internal jugular approach Port-A-Cath terminating at the cavoatrial junction similar to prior. LUNGS/PLEURA: There are no consolidations.There are no pleural effusions. There is no demonstrated pneumothorax. BONES: No evidence of acute osseous abnormality. IMPRESSION: 1. No evidence of acute cardiopulmonary process. Stable cardiomegaly. Signed by: Latrell Bal 09/09/2023 5:54 AM Dictation workstation: [id number] [facility] XR Chest Single viewon 09-08 1. No evidence of ac [place] cardiopulmonary process. Stable cardiomegaly. Signed by: Latrell Bal 09/09/2023 5:54 AM Dictation workstation: [id number] Interpreted By: Latrell Vargas, STUDY: XR CHEST 1 VIEW; 09/09/2023 5:13 am INDICATION: Signs/Symptoms:cp. COMPARISON: Chest radiograph 10/04/2022. ACCESSION NUMBER(S): [id number] ORDERING CLINICIAN: TONY MENENDEZ FINDINGS: CARDIOMEDIASTINAL SILHOUETTE: Cardiomediastinal silhouette is enlarged and stable. There is unchanged left subclavian approach pacemaker/AICD. There is also a left internal jugular approach Port-A-Cath terminating at the cavoatrial junction similar to prior. LUNGS/PLEURA: There are no consolidations.There are no pleural effusions. There is no demonstrated pneumothorax. BONES: No evidence of acute osseous abnormality. [facility] Latrell Bal, DO - 09/09/2023 Interpreted By: Latrell Bal, STUDY: XR CHEST 1 VIEW; 09/09/2023 5:13 am INDICATION: Signs/Symptoms:cp. COMPARISON: Chest radiograph 10/04/2022. ACCESSION NUMBER(S): [id number] ORDERING CLINICIAN: TONY MENENDEZ FINDINGS: CARDIOMEDIASTINAL SILHOUETTE: Cardiomediastinal silhouette is enlarged and stable. There is unchanged left subclavian approach pacemaker/AICD. There is also a left internal jugular approach Port-A-Cath terminating at the cavoatrial junction similar to prior. LUNGS/PLEURA: There are no consolidations.There are no pleural effusions. There is no demonstrated pneumothorax. BONES: No evidence of acute osseous abnormality. IMPRESSION: 1. No evidence of acute cardiopulmonary process. Stable cardiomegaly. Signed by: Latrell Bal 09/09/2023 5:54 AM Dictation workstation: [id number] [facility] Work Phone: Radiology Study observation (narrative) [facility] Work Phone: XR Chest Single viewOrdered By: Latrell Bal on 09-09-2023 [facility] Work Phone: Basophil percentageOrdered B y: Peewee Louise on 07-17-2023 Basophil percentage 3.1 mg/dL 2.5-4.9 [place] [facility] Chloride [Moles/Vol] 106 mmol/L 98-[address] [facility] [address] [facility] Glucose [Mass/Vol] 64 mg/dL 74-106 [place] [facility] Hemoglobin (Bld) [Mass/Vol] 9.4 g/dL 12.0-15.0 [facility] Potassium [Moles/Vol] 4.1 mmol/L 3.5-5.1 [facility] Sodium [Moles/Vol] 139 mmol/L 136-145 [facility] Hematocrit Auto (Bld) [Volum e fraction]Ordered By: Peewee Louise on 07-17-2023 Hematocrit (Bld) [Volume fraction] 30.9 % 37-47 [facility] - Chemistry and C hemistry - challengeOrdered By: Peewee Louise on 07-17-2023 CO2 [Moles/Vol] 29.0 mmol/L 21.0-32.0 [facility] Urea nitrogen/Creatinine [Mass ratio] 16.3 mg/mg 10-20 [facility] No Panel InformationOrdered By: Peewee Louise on 07-17-2023 Estimated GFR (MDRD) Amer 31 mL/min >60 [facility] Comment on above: GFR Calc Estimated GFR (MDRD) Non-Af Amer 25 mL/min >60 [facility] Comment on above: Non- GFR Calc Serum or plasma calcium jarrett urement (mass/volume)Ordered By: Peewee Louise on 07-17-2023 Calcium [Mass/Vol] 9.1 mg/dL 8.5-10.1 [facility] Serum or plasma creatinine m easurement (mass/volume)Ordered By: Peewee Louise on 07-17-2023 Creatinine [Mass/Vol] 2.02 mg/dL 0.55-1.02 [facility] Comment on above: The validity of the calculated GFR & GFRAA in patients over 70 years has not been determined. Clinical correlation is essential. Serum or plasma urea nitroge n measurement (mass/volume)Ordered By: Peewee Louise on 07-17-2023 Urea nitrogen [Mass/Vol] 33 mg/dL 7-18 [facility] Thin prep Papanicolaou smear with manual screeningOrdered By: Peewee Louise on 07-17-2023 Thin prep Papanicolaou smear with manual screening 3.3 g/dL 3.2-5.0 [facility] Basophil percentageOrdered B y: Peewee Louise on 06-21-2023 Basophil percentage 2.6 mg/dL 2.5-4.9 [facility] Chloride [Moles/Vol] 105 mmol/L 98-107 [facility] Glucose [Mass/Vol] 97 mg/dL 74-106 [facility] Hemoglobin (Bld) [Mass/Vol] 11.5 g/dL 12.0-15.0 [facility] Potassium [Moles/Vol] 4.7 mmol/L 3.5-5.1 [facility] Sodium [Moles/Vol] 135 mmol/L 136-145 [facility] Hematocrit Auto (Bld) [Volum e fraction]Ordered By: Peewee Louise on 06-21-2023 Hematocrit (Bld) [Volume fraction] 36.6 % 37-47 [facility] Iron measurement (mass/mass) Ordered By: Peewee Louise on 06-21-2023 Iron (Unsp spec) [Mass/Mass] 78 ug/dL 50-170 [facility] - Chemistry and C hemistry - challengeOrdered By: Peewee Louise on 06-21-2023 CO2 [Moles/Vol] 24.0 mmol/L 21.0-32.0 [facility] Ferritin [Mass/Vol] 118 ng/mL 8-252 [facility] Urea nitrogen/Creatinine [Mass ratio] 17.1 mg/mg 10-20 [facility] No Panel InformationOrdered By: Peewee Louise on 06-21-2023 Estimated GFR (MDRD) Amer 29 mL/min >60 [facility] Comment on above: GFR Calc Estimated GFR (MDRD) Non-Af Amer 24 mL/min >60 [facility] Comment on above: Non- GFR Calc Total Iron Binding Capacity 426 ug/dL 250-450 [facility] Serum or plasma calcium jarrett urement (mass/volume)Ordered By: Peewee Louise on 06-21-2023 Calcium [Mass/Vol] 9.3 mg/dL 8.5-10.1 [facility] Serum or plasma creatinine m easurement (mass/volume)Ordered By: Peewee Louise on 06-21-2023 Creatinine [Mass/Vol] 2.11 mg/dL 0.55-1.02 [facility] Comment on above: The validity of the calculated GFR & GFRAA in patients over 70 years has not been determined. Clinical correlation is essential. Serum or plasma iron saturat ion measurement (mass fraction)Ordered By: Peewee Louise on 06-21-2023 Iron saturation [Mass fraction] 18.3 % 15.0-55.0 [facility] Serum or plasma urea nitroge n measurement (mass/volume)Ordered By: Peewee Louise on 06-21-2023 Urea nitrogen [Mass/Vol] 36 mg/dL 7-18 [facility] Thin prep Papanicolaou smear with manual screeningOrdered By: Peewee Louise on 06-21-2023 Thin prep Papanicolaou smear with manual screening 3.5 g/dL 3.2-5.0 [facility] Basophil percentageOrdered B y: Peewee Louise on 05-24-2023 Basophil percentage 2.6 mg/dL 2.5-4.9 [facility] Chloride [Moles/Vol] 103 mmol/L 98-107 [facility] Glucose [Mass/Vol] 96 mg/dL 74-106 [facility] Hemoglobin (Bld) [Mass/Vol] 10.8 g/dL 12.0-15.0 [facility] Potassium [Moles/Vol] 4.2 mmol/L 3.5-5.1 [facility] Sodium [Moles/Vol] 137 mmol/L 136-145 [facility] Hematocrit Auto (Bld) [Volum e fraction]Ordered By: Peewee Louise on 05-24-2023 Hematocrit (Bld) [Volume fraction] 34.1 % 37-47 [facility] - Chemistry and C hemistry - challengeOrdered By: Peewee Louise on 05-24-2023 CO2 [Moles/Vol] 25.0 mmol/L 21.0-32.0 [facility] Urea nitrogen/Creatinine [Mass ratio] 20.8 mg/mg 10-20 [facility] No Panel InformationOrdered By: Peewee Louise on 05-24-2023 Estimated GFR (MDRD) Amer 28 mL/min >60 [facility] Comment on above: GFR Calc Estimated GFR (MDRD) Non-Af Amer 23 mL/min >60 [facility] Comment on above: Non- GFR Calc Serum or plasma calcium jarrett urement (mass/volume)Ordered By: Peewee Louise on 05-24-2023 Calcium [Mass/Vol] 9.2 mg/dL 8.5-10.1 [facility] Serum or plasma creatinine m easurement (mass/volume)Ordered By: Peewee Louise on 05-24-2023 Creatinine [Mass/Vol] 2.21 mg/dL 0.55-1.02 [facility] Comment on above: The validity of the calculated GFR & GFRAA in patients over 70 years has not been determined. Clinical correlation is essential. Serum or plasma urea nitroge n measurement (mass/volume)Ordered By: Peewee Louise on 05-24-2023 Urea nitrogen [Mass/Vol] 46 mg/dL 7-18 [facility] Thin prep Papanicolaou smear with manual screeningOrdered By: Peewee Louise on 05-24-2023 Thin prep Papanicolaou smear with manual screening 3.4 g/dL 3.2-5.0 [facility] HEMOGLOBIN A1C (POC)on 05-01 HbA1c (Bld) [Mass fraction] 8.3 % Abnormal 4.3 - 5.6 % [facility] Basophil percentageOrdered B y: Peewee Louise on 04-24-2023 Basophil percentage 3.3 mg/dL 2.5-4.9 [facility] Chloride [Moles/Vol] 105 mmol/L 98-107 [facility] Glucose [Mass/Vol] 130 mg/dL 74-106 [facility] Comment on above: Fasting Glucose resu lt greater than or equal to 126 mg/dL suggests DIABETES MELLITUS per A.D.A. criteria. Hemoglobin (Bld) [Mass/Vol] 10.7 g/dL 12.0-15.0 [facility] Potassium [Moles/Vol] 4.1 mmol/L 3.5-5.1 [facility] Sodium [Moles/Vol] 136 mmol/L 136-145 [facility] Hematocrit Auto (Bld) [Volum e fraction]Ordered By: Peewee Louise on 04-24-2023 Hematocrit (Bld) [Volume fraction] 33.3 % 37-47 [facility] - Chemistry and C hemistry - challengeOrdered By: Peewee Louise on 04-24-2023 CO2 [Moles/Vol] 29.0 mmol/L 21.0-32.0 [facility] Urea nitrogen/Creatinine [Mass ratio] 16.3 mg/mg 10-20 [facility] No Panel InformationOrdered By: Peewee Louise on 04-24-2023 Estimated GFR (MDRD) Amer 30 mL/min >60 [facility] Comment on above: GFR Calc Estimated GFR (MDRD) Non-Af Amer 25 mL/min >60 [facility] Comment on above: Non- GFR Calc Serum or plasma calcium jarrett urement (mass/volume)Ordered By: Peewee Louise on 04-24-2023 Calcium [Mass/Vol] 9.3 mg/dL 8.5-10.1 [facility] Serum or plasma creatinine m easurement (mass/volume)Ordered By: Peewee Louise on 04-24-2023 Creatinine [Mass/Vol] 2.03 mg/dL 0.55-1.02 [facility] Comment on above: The validity of the calculated GFR & GFRAA in patients over 70 years has not been determined. Clinical correlation is essential. Serum or plasma urea nitroge n measurement (mass/volume)Ordered By: Peewee Louise on 04-24-2023 Urea nitrogen [Mass/Vol] 33 mg/dL 7-18 [facility] Thin prep Papanicolaou smear with manual screeningOrdered By: Peewee Louise on 04-24-2023 Thin prep Papanicolaou smear with manual screening 3.2 g/dL 3.2-5.0 [facility] Basophil percentageOrdered B y: Peewee Louise on 03-29-2023 Basophil percentage 2.9 mg/dL 2.5-4.9 [facility] Chloride [Moles/Vol] 105 mmol/L 98-107 [facility] Glucose [Mass/Vol] 230 mg/dL 74-106 [facility] Comment on above: Glucose result great er than or equal to 200 mg/dLsuggests DIABETES MELLITUS per A.D.A. criteria. Potassium [Moles/Vol] 5.0 mmol/L 3.5-5.1 [facility] Sodium [Moles/Vol] 138 mmol/L 136-145 [facility] WBC (Bld) [#/Vol] 7.9 10*3/uL 4.4-11.0 [facility] Blood erythrocytes count (nu mber/volume)Ordered By: Peewee Louise on 03-29-2023 RBC (Bld) [#/Vol] 3.67 10*6/uL 4.2-5.4 [facility] Blood hemoglobin measurement (mass/volume)Ordered By: Peewee Louise on 03-29-2023 Hemoglobin (Bld) [Mass/Vol] 11.6 g/dL 12.0-15.0 [facility] Blood platelet mean volumeOr dered By: Peewee Louise on 03-29-2023 Platelet mean volume (Bld) [Entitic vol] 9.2 fL 6.2-12.0 [facility] Determination of erythrocyte mean corpuscular volume (MCV)Ordered By: Peewee Louise on 03-29-2023 MCV (RBC) [Entitic vol] 100.5 fL 81-99 [facility] Hematocrit Auto (Bld) [Volum e fraction]Ordered By: Peewee Louise on 03-29-2023 Hematocrit (Bld) [Volume fraction] 36.9 % 37-47 [facility] Iron measurement (mass/mass) Ordered By: Peewee Louise on 03-29-2023 Iron (Unsp spec) [Mass/Mass] 75 ug/dL 50-170 [facility] - Chemistry and C hemistry - challengeOrdered By: Peewee Louise on 03-29-2023 CO2 [Moles/Vol] 27.0 mmol/L 21.0-32.0 [facility] Urea nitrogen/Creatinine [Mass ratio] 17.0 mg/mg 10-20 [facility] - Hematology and Cell countsOrdered By: Peewee Louise on 03-29-2023 Erythrocyte distribution width (RBC) [Entitic vol] 49.8 fL 35.1-43.9 [facility] Erythrocyte distribution width (RBC) [Ratio] 13.4 % 11.6-14.6 [facility] MCH (RBC) [Entitic mass] 31.6 pg 27.0-32.0 [facility] MCHC Auto (RBC) [Mass/Vol]Or dered By: Peewee Louise on 03-29-2023 MCHC (RBC) [Mass/Vol] 31.4 g/dL 32-36 [facility] No Panel InformationOrdered By: Peewee Louise on 03-29-2023 Estimated GFR (MDRD) Amer 26 mL/min >60 [facility] Comment on above: GFR Calc Estimated GFR (MDRD) Non-Af Amer 21 mL/min >60 [facility] Comment on above: Non- GFR Calc Parathyroid Hormone (Intact) 53.8 pg/mL 18.4-80.1 [facility] Total Iron Binding Capacity 280 ug/dL 250-450 [facility] Vitamin D 25-Hydroxy 37.1 ng/mL [facility] Comment on above: Vitamin D 25(OH) Sta tus Range Deficiency <20 ng/mL (50nmol/L) Insufficiency 20 - 30 ng/mL (50 - 75 nmol/L) Sufficiency 30 - 100 ng/mL (75 - 250 nmol/L) Toxicity >100 ng/mL (>250 nmol/L) Platelets bldOrdered By: Elpidio Louise on 03-29-2023 Platelets (Bld) [#/Vol] 189 10*3/uL 150-450 [facility] Serum or plasma albumin jarrett urement (mass/volume)Ordered By: Peewee Louise on 03-29-2023 Albumin [Mass/Vol] 3.4 g/dL 3.2-5.0 [facility] Serum or plasma calcium jarrett urement (mass/volume)Ordered By: Peewee Louise on 03-29-2023 Calcium [Mass/Vol] 10.3 mg/dL 8.5-10.1 [facility] Serum or plasma creatinine m easurement (mass/volume)Ordered By: Peewee Louise on 03-29-2023 Creatinine [Mass/Vol] 2.35 mg/dL 0.55-1.02 [facility] Comment on above: The validity of the calculated GFR & GFRAA in patients over 70 years has not been determined. Clinical correlation is essential. Serum or plasma ferritin bubba surement (mass/volume)Ordered By: Peewee Louise on 03-29-2023 Ferritin [Mass/Vol] 94 ng/mL 8-252 [facility] Serum or plasma iron saturat ion measurement (mass fraction)Ordered By: Peewee Louise on 03-29-2023 Iron saturation [Mass fraction] 26.8 % 15.0-55.0 [facility] Serum or plasma urea nitroge n measurement (mass/volume)Ordered By: Peewee Louise on 03-29-2023 Urea nitrogen [Mass/Vol] 40 mg/dL 7-18 [facility] Urine creatinine measurement (mass/volume)Ordered By: Peewee Louise on 03-29-2023 Creatinine (U) [Mass/Vol] 118.00 mg/dL NO RANGE EST. [facility] Urine protein measurement (m ass/volume)Ordered By: Peewee Louise on 03-29-2023 Protein (U) [Mass/Vol] 68.5 mg/dL 0.0-11.8 [facility] Urine protein/creatinine mas s ratioOrdered By: Peewee Louise on 03-29-2023 Protein/Creatinine (U) [Mass ratio] 581 mg/g CRE 0-200 [facility] Basophil percentageOrdered B y: Peewee Louise on 03-01-2023 Basophil percentage 2.9 mg/dL 2.5-4.9 [facility] Chloride [Moles/Vol] 103 mmol/L 98-107 [facility] Glucose [Mass/Vol] 150 mg/dL 74-106 [facility] Comment on above: Fasting Glucose resu lt greater than or equal to 126 mg/dL suggests DIABETES MELLITUS per A.D.A. criteria. Potassium [Moles/Vol] 4.4 mmol/L 3.5-5.1 [facility] Sodium [Moles/Vol] 136 mmol/L 136-145 [facility] Blood hemoglobin measurement (mass/volume)Ordered By: Peewee Louise on 03-01-2023 Hemoglobin (Bld) [Mass/Vol] 11.6 g/dL 12.0-15.0 [facility] Hematocrit Auto (Bld) [Volum e fraction]Ordered By: Peewee Louise on 03-01-2023 Hematocrit (Bld) [Volume fraction] 34.9 % 37-47 [facility] - Chemistry and C hemistry - challengeOrdered By: Peewee Louise on 03-01-2023 CO2 [Moles/Vol] 27.0 mmol/L 21.0-32.0 [facility] Urea nitrogen/Creatinine [Mass ratio] 19.8 mg/mg 10-20 [facility] No Panel InformationOrdered By: Peewee Louise on 03-01-2023 Estimated GFR (MDRD) Amer 29 mL/min >60 [facility] Comment on above: GFR Calc Estimated GFR (MDRD) Non-Af Amer 24 mL/min >60 [facility] Comment on above: Non- GFR Calc Serum or plasma albumin jarrett urement (mass/volume)Ordered By: Peewee Louise on 03-01-2023 Albumin [Mass/Vol] 3.3 g/dL 3.2-5.0 [facility] Serum or plasma calcium jarrett urement (mass/volume)Ordered By: Peewee Louise on 03-01-2023 Calcium [Mass/Vol] 9.8 mg/dL 8.5-10.1 [facility] Serum or plasma creatinine m easurement (mass/volume)Ordered By: Peewee Louise on 03-01-2023 Creatinine [Mass/Vol] 2.12 mg/dL 0.55-1.02 [facility] Comment on above: The validity of the calculated GFR & GFRAA in patients over 70 years has not been determined. Clinical correlation is essential. Serum or plasma urea nitroge n measurement (mass/volume)Ordered By: Peewee Louise on 03-01-2023 Urea nitrogen [Mass/Vol] 42 mg/dL 7-18 [facility] Basophil percentageOrdered B y: Peewee Louise on 01-30-2023 Basophil percentage 3.0 mg/dL 2.5-4.9 [facility] Chloride [Moles/Vol] 103 mmol/L 98-107 [facility] Glucose [Mass/Vol] 144 mg/dL 74-106 [facility] Comment on above: Fasting Glucose resu lt greater than or equal to 126 mg/dL suggests DIABETES MELLITUS per A.D.A. criteria. Potassium [Moles/Vol] 4.2 mmol/L 3.5-5.1 [facility] Sodium [Moles/Vol] 136 mmol/L 136-145 [facility] Blood hemoglobin measurement (mass/volume)Ordered By: Peewee Louise on 01-30-2023 Hemoglobin (Bld) [Mass/Vol] 12.5 g/dL 12.0-15.0 [facility] Hematocrit Auto (Bld) [Volum e fraction]Ordered By: Peewee Louise on 01-30-2023 Hematocrit (Bld) [Volume fraction] 38.6 % 37-47 [facility] Iron measurement (mass/mass) Ordered By: Peewee Louise on 01-30-2023 Iron (Unsp spec) [Mass/Mass] 75 ug/dL 50-170 [facility] - Chemistry and C hemistry - challengeOrdered By: Peewee Louise on 01-30-2023 CO2 [Moles/Vol] 28.0 mmol/L 21.0-32.0 [facility] Urea nitrogen/Creatinine [Mass ratio] 20.4 mg/mg 10-20 [facility] No Panel InformationOrdered By: Peewee Louise on 01-30-2023 Estimated GFR (MDRD) Amer 26 mL/min >60 [facility] Comment on above: GFR Calc Estimated GFR (MDRD) Non-Af Amer 22 mL/min >60 [facility] Comment on above: Non- GFR Calc Serum or plasma albumin jarrett urement (mass/volume)Ordered By: Peewee Louise on 01-30-2023 Albumin [Mass/Vol] 3.6 g/dL 3.2-5.0 [facility] Serum or plasma calcium jarrett urement (mass/volume)Ordered By: Peewee Louise on 01-30-2023 Calcium [Mass/Vol] 10.0 mg/dL 8.5-10.1 [facility] Serum or plasma creatinine m easurement (mass/volume)Ordered By: Peewee Louise on 01-30-2023 Creatinine [Mass/Vol] 2.30 mg/dL 0.55-1.02 [facility] Comment on above: The validity of the calculated GFR & GFRAA in patients over 70 years has not been determined. Clinical correlation is essential. Serum or plasma urea nitroge n measurement (mass/volume)Ordered By: Peewee Louise on 01-30-2023 Urea nitrogen [Mass/Vol] 47 mg/dL 7-18 [facility] Basophil percentageOrdered B y: Peewee Louise on 01-04-2023 Basophil percentage 3.7 mg/dL 2.5-4.9 [facility] Chloride [Moles/Vol] 101 mmol/L 98-107 [facility] Glucose [Mass/Vol] 274 mg/dL 74-106 [facility] Comment on above: Glucose result great er than or equal to 200 mg/dLsuggests DIABETES MELLITUS per A.D.A. criteria. Potassium [Moles/Vol] 4.1 mmol/L 3.5-5.1 [facility] Sodium [Moles/Vol] 137 mmol/L 136-145 [facility] Blood hemoglobin measurement (mass/volume)Ordered By: Peewee Louise on 01-04-2023 Hemoglobin (Bld) [Mass/Vol] 12.1 g/dL 12.0-15.0 [facility] HEMOGLOBIN A1C (POC)on 01-04 HbA1c (Bld) [Mass fraction] 12.4 % Abnormal 4.2 - 5.6 % [facility] Hematocrit Auto (Bld) [Volum e fraction]Ordered By: Peewee Louise on 01-04-2023 Hematocrit (Bld) [Volume fraction] 36.9 % 37-47 [facility] Iron measurement (mass/mass) Ordered By: Peewee Louise on 01-04-2023 Iron (Unsp spec) [Mass/Mass] 93 ug/dL 50-170 [facility] - Chemistry and C hemistry - challengeOrdered By: Peewee Louise on 01-04-2023 CO2 [Moles/Vol] 28.0 mmol/L 21.0-32.0 [facility] Urea nitrogen/Creatinine [Mass ratio] 18.7 mg/mg 01-04 [facility] No Panel InformationOrdered By: Peewee Louise on 01-04-2023 Estimated GFR (MDRD) Amer 24 mL/min >60 [facility] Comment on above: GFR Calc Estimated GFR (MDRD) Non-Af Amer 20 mL/min >60 [facility] Comment on above: Non- GFR Calc Total Iron Binding Capacity 290 ug/dL 250-450 [facility] Serum or plasma albumin jarrett urement (mass/volume)Ordered By: Peewee Louise on 01-04-2023 Albumin [Mass/Vol] 3.2 g/dL 3.2-5.0 [facility] Serum or plasma calcium jarrett urement (mass/volume)Ordered By: Peewee Louise on 01-04-2023 Calcium [Mass/Vol] 9.3 mg/dL 8.5-10.1 [facility] Serum or plasma creatinine m easurement (mass/volume)Ordered By: Peewee Louise on 01-04-2023 Creatinine [Mass/Vol] 2.46 mg/dL 0.55-1.02 [facility] Comment on above: The validity of the calculated GFR & GFRAA in patients over 70 years has not been determined. Clinical correlation is essential. Serum or plasma urea nitroge n measurement (mass/volume)Ordered By: Peewee Louise on 01-04-2023 Urea nitrogen [Mass/Vol] 46 mg/dL 10-02 [facility] ECG 12 Leadon 12-28-2022 EKG performed in [facility] today shows normal sinus rhythm with first-degree AV block, nonspecific interventricular conduction delay, QRS 128 ms. [facility] Work Phone: BASIC METABOLIC PANELon - Anion gap [Moles/Vol] 12 mmol/L Normal [facility] Comment on above: Performed By: #### C MP #### [address] [address] Calcium [Mass/Vol] 9.5 mg/dL Normal 8.6 - 10.3 [facility] Comment on above: Performed By: #### C MP #### [address] [address] Chloride [Moles/Vol] 100 mmol/L Normal 98 - 107 [facility] Comment on above: Performed By: #### C MP #### [address] [address] Creatinine [Mass/Vol] 2.09 mg/dL High 0.50 - 1.05 [facility] Comment on above: Performed By: #### C MP #### [address] [address] GFR/1.73 sq M.predicted among non-blacks MDRD (S/P/Bld) [Vol rate/Area] 24 mL/min/{1.73_m2} Abnormal >90 [facility] Comment on above: Result Comment: CALC ULATIONS OF ESTIMATED GFR ARE PERFORMED USING THE 2020 CKD-EPI STUDY REFIT EQUATION WITHOUT THE RACE VARIABLE FOR THE IDMS-TRACEABLE CREATININE METHODS. https://jasn.asnjournals.org/content/early//ASN.412829 5481 Performed By: #### C MP #### [address] [address] Glucose [Mass/Vol] 267 mg/dL High 74 - 99 [facility] Comment on above: Performed By: #### C MP #### [address] [address] HCO3 (Bld) [Moles/Vol] 26 mmol/L Normal 21 - 32 [facility] Comment on above: Performed By: #### C MP #### [address] [address] Potassium [Moles/Vol] 4.4 mmol/L Normal 3.5 - 5.3 [facility] Comment on above: Performed By: #### C MP #### [address] [address] Sodium [Moles/Vol] 134 mmol/L Low 136 - 145 [facility] Comment on above: Performed By: #### C MP #### [address] [address] Urea nitrogen [Mass/Vol] 33 mg/dL High 6 - 23 [facility] Comment on above: Performed By: #### C MP #### [address] [address] BNPon 12-12-2022 Natriuretic peptide B (Bld) [Mass/Vol] 309 pg/mL High 0 - 99 [facility] Comment on above: Result Comment: . <1 00 pg/mL - Heart failure unlikely 100-299 pg/mL - Intermediate probability of acute heart . failure exacerbation. Correlate with clinical . context and patient history. >=300 pg/mL - Heart Failure likely. Correlate with clinical . context and patient history. BNP testing is performed using different testing methodology at [facility] than at [facility]. Direct result comparisons should only be made within the same method. Performed By: #### G ROVERTO #### [address] [address] Narrative Note - Outpatient- Heart Failureon 12-12-2022 Narrative Note - Outpatient-Heart Failure Narrative Note: Discipline/ClinicHeart Failure Description Val arrived ambulatory with walker to the [facility] for her scheduled visit. Val states she is feeling pretty good. She denies increased shortness of breath, PND, or Orthopnea. Wears 2L O2 NC nightly. Eating and sleeping without distress. Home medications reviewed with no changes. A BMP was drawn today and results were called to Dr. Antoine. Plan is to continue current medications and follow up in 5 months with a BMP. Reviewed signs and symptoms of increased heart failure and when to call for help. Vitals: BP: 139/80 HR: 90 Resp: 20 SPO2: 96% on room air Weight: 270.6lbs Previous Weight: 265.0lbs Gain of: 5.6lbs Lung Sounds: clear Edema: +2 bl legs/ankles JVD: absent Labs: BMP Medications Administered: none Next Appointment Date: May 14, 2022@ 12pm Note in EMR for treating Physician: Dr. Antoine In-House Supervising Physician: Dr. Perales Electronic Signatures: Juliana Calloway (RN) (Signed 12-Dec-2022 10:09) Authored: Narrative Note - OP Last Updated: 12-Dec-2022 10:09 by Juliana Calloway (RN) [facility] Established Visit (Pulmonary Medicine)on 12-10-2022 Established Visit (Pulmonary Medicine) Diagnoses/Problems Dyspnea on exertion (786.09) (R06.09) Hypoxemia (799.02) (R09.02) Obstructive lung disease (496) (J44.9) Morbid obesity (278.01) (E66.01) Provider Impressions Impressions: 1. Moderate obstructive airway disease. 2. Dyspnea on exertion. 3. History of hypoxemia when sleeping. 4. Morbid obesity. Recommendations: 1. Continue with using 2 L of oxygen at night. We will plan on checking her oxygen level on the 2 L to make sure that this is adequate. This will be done through [employer]. 2. Continue with the Trelegy?100 daily. 3. Recommend weight reduction. 4. Follow-up with the patient in 4 months. This note was transcribed using the [employer]api Dictation system. There may be grammatical, punctuation, or verbiage errors that occur with voice recognition programs. Chief Complaint VAL ERICKSON is here for a 4 month follow-up. Reason for Visit: Moderate Obstructive Airway Disease. History of Present Illness Patient was seen today in the office on a 4-month follow-up visit. Patient reports that she is using her oxygen 2 L at nighttime but no use during the day. She does feel generally rested during the day. She is on Trelegy?100 daily for her moderate obstructive airway disease. Her oxygen saturation today on room air at rest was 93%. Review of her previous overnight oxygen trending on room air from 2- showed saturations less than 88% and her lowest sat was 83%. That study was done through [employer]. Patient denies any cough or sputum production and no wheezing at this time. Review of Systems Patient denies any fever, chills, rhinitis or sore throat. And she is not smoking. Active Problems Abnormal CXR (793.2) (R93.89) CHF (congestive heart failure) (428.0) (I50.9) Chronic combined systolic and diastolic HF (heart failure), NYHA class 3 (428.42) (I50.42) Dyspnea on exertion (786.09) (R06.09) Hypoxemia (799.02) (R09.02) LBBB (left bundle branch block) (426.3) (I44.7) Morbid obesity (278.01) (E66.01) Obstructive lung disease (496) (J44.9) Postoperative fever (780.62) (R50.82) Renal dysfunction (593.9) (N28.9) Shortness of breath (786.05) (R06.02) Surgical History History of Ankle surgery X2 History of Appendectomy History of Hysterectomy History of Knee replacement X2 History of Shoulder surgery History of Tonsillectomy History of Ureteroplasty History of Varicose vein ligation Family History Family history of malignant neoplasm (V16.9) (Z80.9) Family history of cerebrovascular accident (CVA) (V17.1) (Z82.3) Family history of diabetes mellitus (V18.0) (Z83.3) Family history of coronary artery disease (V17.3) (Z82.49) Family history of malignant neoplasm (V16.9) (Z80.9) Family history of cerebrovascular accident (CVA) (V17.1) (Z82.3) Social History No alcohol use No caffeine use No illicit drug use Non-smoker (V49.89) (Z78.9) Patient has healthcare proxy and living will (V49.89) (Z78.9) Allergies Levaquin TABS Recorded By: Marly Willis; 03/28/2022 11:28:11 AM sulfa Recorded By: Marly Willis; 03/28/2022 11:28:11 AM Current Meds Medication NameInstructionReason Metoprolol Succinate ER 50 MG Oral Tablet Extended Release 24 HourTAKE 1 TABLET ONCE DAILY.CHF (congestive heart failure) Trelegy Ellipta 100-62.5-25 MCG/ACT Inhalation Aerosol Powder Breath ActivatedINHALE 1 PUFFS Daily. RINSE MOUTH OUT WITH H20 AFTER EACH USE.Dyspnea on exertion Cephalexin 500 MG Oral TabletTAKE 1 TABLET 3 TIMES DAILY.Postoperative fever Calcitriol 0.5 MCG Oral CapsuleTAKE 1 TAB DAILY Clotrimazole 1 % External CreamUSE DIRECTED Colace 50 MG CAPSTAKE DIRECTED. Epogen 54422 UNIT/ML Injection SolutionINJECT SUBCUTANEOUSLY DIRECTED. Furosemide 20 MG Oral TabletTAKE 1 TABLET DAILY. Gabapentin 300 MG Oral CapsuleTake 1 capsule twice daily Lantus SoloStar 100 UNIT/ML Subcutaneous Solution Pen-injectorINJECT 40 UNIT Daily Lidocaine 5 % External PatchAPPLY DIRECTED. Melatonin 5 MG Oral TabletTAKE DIRECTED. PreserVision/Lutein Oral CapsuleTAKE DIRECTED. Senna Laxative 8.6 MG Oral TabletTAKE DIRECTED. Simvastatin 40 MG Oral TabletTAKE 1 TABLET DAILY DIRECTED. Venlafaxine HCl ER 37.5 MG Oral Capsule Extended Release 24 HourTAKE 1 CAPSULE ONCE DAILY WITH FOOD. Vitals Vital Signs Recorded: [id number] 11:19AM Bxelbfkmxic12.1 F, Temporal Heart Rate97 Yxzaxkvt219 Vwnwkmerk79 Height5 ft 3 in Fzyaaz297 lb 6.4 oz BMI Vuduoipnzk31.55 kg/m2 BSA Calculated2.19 Tobacco Useb) No Falls Screening (Age 18+)a) No falls within the last year Physical Exam HEENT. Patient has significant scalloping of her tongue with a class IV airway. Pulmonary, decreased to breath sounds bilaterally but clear to auscultation. Cardio, heart sounds were regular rate and rhythm. Extremities, no cyanosis or clubbing. Psych, the patient is alert and oriented x3. Patient does not appear dyspneic at rest. Signatures Electronically signed by : Liliana (more content not included)... Normal [facility] Basophil percentageOrdered B y: Peewee Louise on 12-07-2022 Basophil percentage 2.2 mg/dL 2.5-4.9 [facility] Chloride [Moles/Vol] 108 mmol/L 98-107 [facility] Glucose [Mass/Vol] 179 mg/dL 74-106 [facility] Comment on above: Fasting Glucose resu lt greater than or equal to 126 mg/dL suggests DIABETES MELLITUS per A.D.A. criteria. Potassium [Moles/Vol] 4.4 mmol/L 3.5-5.1 [facility] Sodium [Moles/Vol] 138 mmol/L 136-145 [facility] Blood hemoglobin measurement (mass/volume)Ordered By: Peewee Louise on 12-07-2022 Hemoglobin (Bld) [Mass/Vol] 11.7 g/dL 12.0-15.0 [facility] Hematocrit Auto (Bld) [Volum e fraction]Ordered By: Peewee Louise on 12-07-2022 Hematocrit (Bld) [Volume fraction] 35.4 % 37-47 [facility] Laboratory - Chemistry and C hemistry - challengeOrdered By: Peewee Louise on 12-07-2022 CO2 [Moles/Vol] 24.0 mmol/L 21.0-32.0 [facility] Urea nitrogen/Creatinine [Mass ratio] 16.1 mg/mg 10-20 [facility] No Panel InformationOrdered By: Peewee Louise on 12-07-2022 Estimated GFR (MDRD) Amer 26 mL/min >60 [facility] Comment on above: GFR Calc Estimated GFR (MDRD) Non-Af Amer 22 mL/min >60 [facility] Comment on above: Non- GFR Calc Serum or plasma albumin jarrett urement (mass/volume)Ordered By: Peewee Louise on 12-07-2022 Albumin [Mass/Vol] 3.3 g/dL 3.2-5.0 [facility] Serum or plasma calcium jarrett urement (mass/volume)Ordered By: Peewee Louise on 12-07-2022 Calcium [Mass/Vol] 9.6 mg/dL 8.5-10.1 [facility] Serum or plasma creatinine m easurement (mass/volume)Ordered By: Peewee Louise on 12-07-2022 Creatinine [Mass/Vol] 2.30 mg/dL 0.55-1.02 [facility] Comment on above: The validity of the calculated GFR & GFRAA in patients over 70 years has not been determined. Clinical correlation is essential. Serum or plasma urea nitroge n measurement (mass/volume)Ordered By: Peewee Louise on 12-07-2022 Urea nitrogen [Mass/Vol] 37 mg/dL 7-18 [facility] Basophil percentageOrdered B y: Peewee Louise on 11-07-2022 Basophil percentage 3.0 mg/dL 2.5-4.9 [facility] Chloride [Moles/Vol] 104 mmol/L 98-107 [facility] Glucose [Mass/Vol] 184 mg/dL 74-106 [facility] Comment on above: Fasting Glucose resu lt greater than or equal to 126 mg/dL suggests DIABETES MELLITUS per A.D.A. criteria. Potassium [Moles/Vol] 4.0 mmol/L 3.5-5.1 [facility] Sodium [Moles/Vol] 138 mmol/L 136-145 [facility] Blood hemoglobin measurement (mass/volume)Ordered By: Peewee Louise on 11-07-2022 Hemoglobin (Bld) [Mass/Vol] 11.7 g/dL 12.0-15.0 [facility] Hematocrit Auto (Bld) [Volum e fraction]Ordered By: Peewee Louise on 11-07-2022 Hematocrit (Bld) [Volume fraction] 35.5 % 37-47 [facility] Laboratory - Chemistry and C hemistry - challengeOrdered By: Peewee Louise on 11-07-2022 CO2 [Moles/Vol] 25.0 mmol/L 21.0-32.0 [facility] Urea nitrogen/Creatinine [Mass ratio] 17.0 mg/mg 10-20 [facility] No Panel InformationOrdered By: Peewee Louise on 11-07-2022 Estimated GFR (MDRD) Amer 27 mL/min >60 [facility] Comment on above: GFR Calc Estimated GFR (MDRD) Non-Af Amer 22 mL/min >60 [facility] Comment on above: Non- GFR Calc Serum or plasma albumin jarrett urement (mass/volume)Ordered By: Peewee Louise on 11-07-2022 Albumin [Mass/Vol] 3.3 g/dL 3.2-5.0 [facility] Serum or plasma calcium jarrett urement (mass/volume)Ordered By: Peewee Louise on 11-07-2022 Calcium [Mass/Vol] 9.7 mg/dL 8.5-10.1 [facility] Serum or plasma creatinine m easurement (mass/volume)Ordered By: Peewee Louise on 11-07-2022 Creatinine [Mass/Vol] 2.29 mg/dL 0.55-1.02 [facility] Comment on above: The validity of the calculated GFR & GFRAA in patients over 70 years has not been determined. Clinical correlation is essential. Serum or plasma urea nitroge n measurement (mass/volume)Ordered By: Peewee Louise on 11-07-2022 Urea nitrogen [Mass/Vol] 39 mg/dL 7-18 [facility] Basophil percentageOrdered B y: Peewee Louise on 10-12-2022 Basophil percentage 3.8 mg/dL 2.5-4.9 [facility] Chloride [Moles/Vol] 98 mmol/L 98-107 [facility] Glucose [Mass/Vol] 181 mg/dL 74-106 [facility] Comment on above: Fasting Glucose resu lt greater than or equal to 126 mg/dL suggests DIABETES MELLITUS per A.D.A. criteria. Potassium [Moles/Vol] 4.2 mmol/L 3.5-5.1 [facility] Sodium [Moles/Vol] 135 mmol/L 136-145 [facility] WBC (Bld) [#/Vol] 7.4 10*3/uL 4.4-11.0 [facility] Blood erythrocytes count (nu mber/volume)Ordered By: Peewee Louise on 10-12-2022 RBC (Bld) [#/Vol] 3.44 10*6/uL 4.2-5.4 [facility] Blood hemoglobin measurement (mass/volume)Ordered By: Peewee Louise on 10-12-2022 Hemoglobin (Bld) [Mass/Vol] 11.1 g/dL 12.0-15.0 [facility] Blood platelet mean volumeOr dered By: Peewee Louise on 10-12-2022 Platelet mean volume (Bld) [Entitic vol] 9.6 fL 6.2-12.0 [facility] Determination of erythrocyte mean corpuscular volume (MCV)Ordered By: Peewee Louise on 10-12-2022 MCV (RBC) [Entitic vol] 98.0 fL 81-99 [facility] Hematocrit Auto (Bld) [Volum e fraction]Ordered By: Peewee Louise on 10-12-2022 Hematocrit (Bld) [Volume fraction] 33.7 % 37-47 [facility] Iron measurement (mass/mass) Ordered By: Peewee Louise on 10-12-2022 Iron (Unsp spec) [Mass/Mass] 89 ug/dL 50-170 [facility] Laboratory - Chemistry and C hemistry - challengeOrdered By: Peewee Louise on 10-12-2022 CO2 [Moles/Vol] 29.0 mmol/L 21.0-32.0 [facility] Urea nitrogen/Creatinine [Mass ratio] 19.1 mg/mg 10-20 [facility] Laboratory - Hematology and Cell countsOrdered By: Peewee Louise on 10-12-2022 Erythrocyte distribution width (RBC) [Entitic vol] 48.8 fL 35.1-43.9 [facility] Erythrocyte distribution width (RBC) [Ratio] 13.7 % 11.6-14.6 [facility] MCH (RBC) [Entitic mass] 32.3 pg 27.0-32.0 [facility] MCHC Auto (RBC) [Mass/Vol]Or dered By: Peewee Louise on 10-12-2022 MCHC (RBC) [Mass/Vol] 32.9 g/dL 32-36 [facility] No Panel InformationOrdered By: Peewee Louise on 10-12-2022 Estimated GFR (MDRD) Amer 23 mL/min >60 [facility] Comment on above: GFR Calc Estimated GFR (MDRD) Non-Af Amer 19 mL/min >60 [facility] Comment on above: Non- GFR Calc Parathyroid Hormone (Intact) 16.9 pg/mL 18.4-80.1 [facility] Total Iron Binding Capacity 285 ug/dL 250-450 [facility] Vitamin D 25-Hydroxy 37.7 ng/mL [facility] Comment on above: Vitamin D 25(OH) Sta tus Range Deficiency <20 ng/mL (50nmol/L) Insufficiency 20 - 30 ng/mL (50 - 75 nmol/L) Sufficiency 30 - 100 ng/mL (75 - 250 nmol/L) Toxicity >100 ng/mL (>250 nmol/L) Platelets bldOrdered By: Elpidio Louise on 10-12-2022 Platelets (Bld) [#/Vol] 151 10*3/uL 150-450 [facility] Serum or plasma albumin jarrett urement (mass/volume)Ordered By: Peewee Louise on 10-12-2022 Albumin [Mass/Vol] 3.2 g/dL 3.2-5.0 [facility] Serum or plasma calcium jarrett urement (mass/volume)Ordered By: Peewee Louise on 10-12-2022 Calcium [Mass/Vol] 10.5 mg/dL 8.5-10.1 [facility] Serum or plasma creatinine m easurement (mass/volume)Ordered By: Peewee Louise on 10-12-2022 Creatinine [Mass/Vol] 2.56 mg/dL 0.55-1.02 [facility] Comment on above: The validity of the calculated GFR & GFRAA in patients over 70 years has not been determined. Clinical correlation is essential. Serum or plasma ferritin bubba surement (mass/volume)Ordered By: Peewee Louise on 10-12-2022 Ferritin [Mass/Vol] 125 ng/mL 8-252 [facility] Serum or plasma iron saturat ion measurement (mass fraction)Ordered By: Peewee Louise on 10-12-2022 Iron saturation [Mass fraction] 31.2 % 15.0-55.0 [facility] Serum or plasma urea nitroge n measurement (mass/volume)Ordered By: Peewee Louise on 10-12-2022 Urea nitrogen [Mass/Vol] 49 mg/dL 7-18 [facility] Urine creatinine measurement (mass/volume)Ordered By: Peewee Louise on 10-12-2022 Creatinine (U) [Mass/Vol] 27.70 mg/dL NO RANGE EST. [facility] Urine protein measurement (m ass/volume)Ordered By: Peewee Louise on 10-12-2022 Protein (U) [Mass/Vol] 16.5 mg/dL 0.0-11.8 [facility] Urine protein/creatinine mas s ratioOrdered By: Peewee Louise on 10-12-2022 Protein/Creatinine (U) [Mass ratio] 596 mg/g CRE 0-200 [facility] Height or Weight NOT Doneon 10-11-2022 Fall risk assessment a) No falls within the last year -Cardiology -[place] [address] [employer] Work Phone: Tobacco use status [facility] b) No -Cardiology -[place] [address] [employer] Work Phone: BASIC METABOLIC PANELon 09-16 Anion gap [Moles/Vol] 15 mmol/L Normal 10 - 20 [facility] Comment on above: Performed By: #### C BC #### [address] [address] Calcium [Mass/Vol] 10.5 mg/dL High 8.6 - 10.3 [facility] Comment on above: Performed By: #### C BC #### [address] [address] Chloride [Moles/Vol] 102 mmol/L Normal 98 - 107 [facility] Comment on above: Performed By: #### C BC #### [address] [address] Creatinine [Mass/Vol] 2.38 mg/dL High 0.50 - 1.05 [facility] Comment on above: Performed By: #### C BC #### [address] [address] GFR/1.73 sq M.predicted among non-blacks MDRD (S/P/Bld) [Vol rate/Area] 20 mL/min/{1.73_m2} Abnormal >90 [facility] Comment on above: Result Comment: CALC ULATIONS OF ESTIMATED GFR ARE PERFORMED USING THE 2020 CKD-EPI STUDY REFIT EQUATION WITHOUT THE RACE VARIABLE FOR THE IDMS-TRACEABLE CREATININE METHODS. https://alansn.asnjournals.org/content//ASN.930283 0816 Performed By: #### C BC #### [address] [address] Glucose [Mass/Vol] 146 mg/dL High 74 - 99 [facility] Comment on above: Performed By: #### C BC #### [address] [address] HCO3 (Bld) [Moles/Vol] 24 mmol/L Normal 21 - 32 [facility] Comment on above: Performed By: #### C BC #### [address] [address] Potassium [Moles/Vol] 4.7 mmol/L Normal 3.5 - 5.3 [facility] Comment on above: Performed By: #### C BC #### [address] [address] Sodium [Moles/Vol] 136 mmol/L Normal 136 - 145 [facility] Comment on above: Performed By: #### C BC #### [address] [address] Urea nitrogen [Mass/Vol] 46 mg/dL High 6 - 23 [facility] Comment on above: Performed By: #### C BC #### [address] [address] Laboratory - Chemistry and C hemistry - challengeon 10-09-2022 Anion gap [Moles/Vol] 15 mmol/L 10 - 20 - Cardiology [place] [address] [employer] Work Phone: Calcium [Mass/Vol] 10.5 mg/dL above high threshold 8.6 - 10.3 -Cardiology [place] [address] [place] Work Phone: Chloride [Moles/Vol] 102 mmol/L 98 - 107 -C ardiology -[place] [address] [employer] Work Phone: CO2 [Moles/Vol] 24 mmol/L 21 - 32 -Cardio logy [place] [address] [employer] Work Phone: Creatinine [Mass/Vol] 2.38 mg/dL above high threshold See Below -Cardiology [place] [address] [place] Work Phone: Comment on above: Reference Range: 0.5 0 - 1.05 Glucose [Mass/Vol] 146 mg/dL above high threshold 74 - 99 MP-Cardiology -[place] [employer] Work Phone: Potassium [Moles/Vol] 4.7 mmol/L 3.5 - 5.3 MP- Cardiology -[place] [address] [employer] Work Phone: Sodium [Moles/Vol] 136 mmol/L 136 - 145 G5-Car diology -[place] [employer] Work Phone: Urea nitrogen [Mass/Vol] 46 mg/dL above high threshold 6 - 23 MP-Cardiology [place] [address] [employer] Work Phone: Narrative Note - Outpatient- Heart Failureon 10-09-2022 Narrative Note - Outpatient-Heart Failure Narrative Note: Discipline/ClinicHeart Failure Description Val arrived ambulatory with walker to the [facility] for her scheduled visit. Val had a defibrillator placed last week. She states she is feeling ok . Val denies increased shortness of breath, PND, or Orthopnea. Eating and sleeping without distress. Home medications reviewed with no changes. A BMP was drawn today and results were called to Dr. Antoine. Plan is to continue current regimen and follow up in 2 months. Reviewed signs and symptoms of increased heart failure and when to call for help. Vitals: BP: 119/71 HR: 79 Resp: 20 SPO2: 98% on room air Weight: 265.0lbs Previous Weight: 264.8lbs Lung Sounds: diminished Edema: +1 left leg JVD: absent Labs: BMP Medications Administered: none Next Appointment Date: December 12, 2022@9am Note in EMR for treating Physician: Dr. Antoine In-House Supervising Physician: Dr. Bailey Electronic Signatures: Juliana Calloway (SYLVAIN) (Signed 09-Oct-2022 15:22) Authored: Narrative Note - OP Last Updated: 09-Oct-2022 15:22 by Juliana Calloway) [facility] No Panel Informationon 10-09 20 {mL/min/1.73m2} Abnormal >90 MP-Car diology -[place] [employer] Work Phone: Comment on above: CALCULATIONS OF TE MATED GFR ARE PERFORMED USING THE 2020 CKD-EPI STUDY REFIT EQUATION WITHOUT THE RACE VARIABLE FOR THE IDMS-TRACEABLE CREATININE METHODS.https://jasn.asnjournals.org/content/early/ N.5280702395 Cardiac echo study Procedure on 10-04-2022 [facility], [address] [facility] [id number] [phone] and TRANSTHORACIC ECHOCARDIOGRAM REPORT Patient Name: VAL ERICKSON Reading Physician: [id number] Claudio Quinn MD Study Date: 10/04/2022 Referring Physician: Aldo Diaz MRN/PID: [id number] PCP: Accession/Order#: [id number] Department Location: [facility] Date of : 1945 Fellow: Gender: F Nurse: Admit Date: Economics Analyst: Vera Ortega JOSEPH Admission Status: Inpatient - Additional Staff: Routine Height: 160.02 cm CC Report to: Weight: 117.94 kg Study Type: Echocardiogram BSA: 2.16 m2 Blood Pressure: 121 /58 mmHg Diagnosis/ICD: I31.39-Other pericardial effusion (noninflammatory) Indication: S/P Defibrillator Procedure/CPT: Echo Limited-28342; Doppler Limited-36838; Color Doppler-16152 Patient History: Pacer/Defib: AICD Pertinent CHF, Hyperlipidemia and HTN. LBBB, DM, CKD III, S/P History: Defibrillator. Study Detail: The following Echo studies were performed: 2D, Doppler and color flow. Technically challenging study due to patient lying in supine position and body habitus. PHYSICIAN INTERPRETATION: Left Ventricle: The left ventricular systolic function is moderately decreased, with an estimated ejection fraction of 30-35%. There is global hypokinesis of the left ventricle with minor regional variations. The left ventricular cavity size is mildly dilated. Left ventricular diastolic filling was not assessed. Left Atrium: The left atrium is upper limits of normal in size. Right Ventricle: The right ventricle is slightly enlarged. There is normal right ventricular global systolic function. A device is visualized in the right ventricle. Right Atrium: The right atrium is normal in size. There is a device visualized in the right atrium. Aortic Valve: The aortic valve is trileaflet. There is no evidence of aortic valve regurgitation. Mitral Valve: The mitral valve is mildly thickened. There is trace mitral valve regurgitation. Tricuspid Valve: The tricuspid valve is structurally normal. There is trace tricuspid regurgitation. The Doppler estimated RVSP is within normal limits at 22.9 mmHg. Pulmonic Valve: The pulmonic valve is not well visualized. There is physiologic pulmonic valve regurgitation. Pericardium: There is a trivial pericardial effusion. There is no evidence of cardiac tamponade. Aorta: The aortic root is normal. Systemic Veins: The inferior vena cava size appears small. There is IVC inspiratory collapse greater than 50%. CONCLUSIONS: 1. Left ventricular systolic function is moderately decreased with a 30-35% estimated ejection fraction. 2. There is global hypokinesis of the left ventricle with minor regional variations. 3. There is a trivial pericardial effusion 4. There is no evidence of cardiac tamponade. 5. RVSP within normal limits. QUANTITATIVE DATA SUMMARY: TRICUSPID VALVE/RVSP: Normal Ranges: Peak TR Velocity: 2.23 m/s RV Syst Pressure: 22.9 mmHg (< 30mmHg) [id number] Claudio Quinn MD Electronically signed on 10/04/2022 at 10:51:37 AM Final Claudio Bobby MD PhD - 10/04/2022 [facility], [address] [place] [id number] [phone] and TRANSTHORACIC ECHOCARDIOGRAM REPORT Patient Name: VAL Heidi ERICKSON Reading Physician: [id number] Claudio Quinn MD Study Date: 10/04/2022 Referring Physician: Aldo Diaz MRN/PID: [id number] PCP: Accession/Order#: [id number] Department Location: [facility] Date of : 1945 Fellow: Gender: F Nurse: Admit Date: Economics Analyst: Vera Ortega RDCS Admission Status: Inpatient - Additional Staff: Routine Height: 160.02 cm CC Report to: Weight: 117.94 kg Study Type: Echocardiogram BSA: 2.16 m2 Blood Pressure: 121 /58 mmHg Diagnosis/ICD: I31.39-Other pericardial effusion (noninflammatory) Indication: S/P Defibrillator Procedure/CPT: Echo Limited-76932; Doppler Limited-20125; Color Doppler-72254 Patient History: Pacer/Defib: AICD Pertinent CHF, Hyperlipidemia and HTN. LBBB, DM, CKD III, S/P History: Defibrillator. Study Detail: The following Echo studies were performed: 2D, Doppler and color flow. Technically challenging study due to patient lying in supine position and body habitus. PHYSICIAN INTERPRETATION: Left Ventricle: The left ventricular systolic function is moderately decreased, with an estimated ejection fraction of 30-35%. There is global hypokinesis of the left ventricle with minor regional variations. The left ventricular cavity size is mildly dilated. Left ventricular diastolic filling was not assessed. Left Atrium: The left atrium is upper limits of normal in size. Right Ventricle: The right ventricle is slightly enlarged. There is normal right ventricular global systolic function. A device is visualized in the right ventricle. Right Atrium: The right atrium is normal in size. There is a device visualized in the right atrium. Aortic Valve: The aortic valve is trileaflet. There is no evidence of aortic valve regurgitation. Mitral Valve: The mitral valve is mildly thickened. There is trace mitral valve regurgitation. Tricuspid Valve: The tricuspid valve is structurally normal. There is trace tricuspid regurgitation. The Doppler estimated RVSP is within normal limits at 22.9 mmHg. Pulmonic Valve: The pulmonic valve is not well visualized. There is physiologic pulmonic valve regurgitation. Pericardium: There is a trivial pericardial effusion. There is no evidence of cardiac tamponade. Aorta: The aortic root is normal. Systemic Veins: The inferior vena cava size appears small. There is IVC inspiratory collapse greater than 50%. CONCLUSIONS: 1. Left ventricular systolic function is moderately decreased with a 30-35% estimated ejection fraction. 2. There is global hypokinesis of the left ventricle with minor regional variations. 3. There is a trivial pericardial effusion 4. There is no evidence of cardiac tamponade. 5. RVSP within normal limits. QUANTITATIVE DATA SUMMARY: TRICUSPID VALVE/RVSP: Normal Ranges: Peak TR Velocity: 2.23 m/s RV Syst Pressure: 22.9 mmHg (< 30mmHg) [id number] Claudio Quinn MD Electronically signed on 10/04/2022 at 10:51:37 AM Final [facility] Work Phone: Cardiac echo study Procedure Ordered By: Claudio Quinn on 10-04-2022 [facility] Work Phone: Discharge Planning [id number] 10-04-2022 Discharge Planning Note2 Discharge Planning: Discharge Barriersnone Planned Dispositionhome Anticipated Discharge [id number] Discharge Planning 10/04/22 0934 (remote coverage from [facility]) Pt is here under OP extended stay for pacer/defib placement inserted yesterday. I was unable to reach pt via phone to discuss DC plan. I anticipate DC to home today but will attempt to reach pt at another time. I called the floor to ask they place phone near pt. [phone] Attempted to call pt again but no answer. Will attempt again later. Samantha Huerta RN, BSN, Transitional Registered Occupational Therapist, ([id number]), , DOC HALO 1427 TCC attempted to call pt again, but no answer. Will attempt again later. SYLVAIN Govea/ Josh 1540 TCC attempted to call pt again, no answer. Charisse Lozano RN TCC/ DocHalo Assessment: Discharge Planning Assessment [id number] Lives Withalone(1) Living Arrangementsapartment(1) Stated Reason for AdmissionPacemaker(1) Arrived Fromenid (1) Resource/Environmental Concernsnone(1) Anticipated Transition Toenid(1) Services Anticipated at Transitionnon(1) Discharge Documentation: Discharge/Transfer Date/[id number]-9020 15:11 Discharged Accompanied Byfamily member Transportation Methodprivate car Discharge Modewheelchair Code StatusCode Status order at time of discharge: Full Code Discharge Order Writtenyes [place] DNR Form Sent with Patient and/or Familyn/a Final Disposition.Home Electronic Signatures: Samatnha Huerta (SYLVAIN) (Signed 04-Oct-2022 11:26) Authored: Discharge Planning, Assessment, Discharge Documentation Marilu Perea) (Signed 04-Oct-2022 15:33) Authored: Discharge Planning, Discharge Documentation Charisse Lozano) (Signed 04-Oct-2022 15:40) Authored: Discharge Planning, Discharge Documentation Last Updated: 04-Oct-2022 15:40 by Charisse Lozano (RN) References: 1. Data Referenced From Patient Profile - Adult v2 03-Oct-2022 18:12 Normal [facility] Discharge [id number] Discharge Profile2 Discharge Orders: Anticipated Discharge Date: Anticipated Discharge [id number] Problem List: Medical History: Status post implantation of automatic cardioverter/defibrillat or (AICD): Catalog Name: Presence of automatic (implantable) cardiac defibrillator Significant Events: RT ANKLE PLATES/SCREWS: Past Surgical History HTN: Past Medical History DM: Past Medical History low back pain: Past Medical History FROZEN RT SHOULDER: Past Medical History Hospital Providers: Provider RoleProvider Name Claus Zendejas Victor D Code Status: Code Status at Discharge: Full Code DNR Order Additional Instructions (peds only): Call Provider If (Homegoing Patients): Breathing harder than normal or having retractions. Fever of 100.4 F (38 C) or higher. Chills. Drinking less than normal. Urinating less than normal, over 1 day. Acting very sleepy and difficult to awaken. Vomiting (throwing up) and not able to eat or drink for 12 hours. Any new concerning symptoms. Provider FINAL REVIEW of Orders: Final Review: Final Review of Medication Reconciliation and Orders Completedby DAHLIA Reviewing ProviderWhjose j Diaz APRN-[facility] [facility]OOKER at 04-Oct-2022 08:13:02 Other Clinician Instructions: Other Instructions: Other Clinician [...] 10/11/22 at 11:00 AM as scheduled [facility] [address] [place] [address] - . 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 Last Updated: 04-Oct-2022 08:13 by Aldo Diaz (VISUAL DISPLAY MANAGER-[facility]) Normal [facility] Echocardiogramon 10-04-2022 Echocardiography [facility] , [address] [facility] [address]Jkd [phone] and TRANSTHORACIC ECHOCARDIOGRAM REPORT Patient Name: VAL ERICKSON Reading Physician: [id number] Claudio Quinn MD Study Date: 10/04/2022 Referring Physician: Aldo Diaz MRN/PID: [id number] PCP: Accession/Order#: [id number] Department Location: [facility] Date of : 1945 Fellow: Gender: F Nurse: Admit Date: Economics Analyst: Vera Ortega JOSEPH Admission Status: Inpatient - Additional Staff: Routine Height: 160.02 cm CC Report to: Weight: 117.94 kg Study Type: Echocardiogram BSA: 2.16 m2 Blood Pressure: 121 /58 mmHg Diagnosis/ICD: I31.39-Other pericardial effusion (noninflammatory) Indication: S/P Defibrillator Procedure/CPT: Echo Limited-12627; Doppler Limited-08632; Color Doppler-51201 Patient History: Pacer/Defib: AICD Pertinent CHF, Hyperlipidemia and HTN. LBBB, DM, CKD III, S/P History: Defibrillator. Study Detail: The following Echo studies were performed: 2D, Doppler and color flow. Technically challenging study due to patient lying in supine position and body habitus. PHYSICIAN INTERPRETATION: Left Ventricle: The left ventricular systolic function is moderately decreased, with an estimated ejection fraction of 30-35%. There is global hypokinesis of the left ventricle with minor regional variations. The left ventricular cavity size is mildly dilated. Left ventricular diastolic filling was not assessed. Left Atrium: The left atrium is upper limits of normal in size. Right Ventricle: The right ventricle is slightly enlarged. There is normal right ventricular global systolic function. A device is visualized in the right ventricle. Right Atrium: The right atrium is normal in size. There is a device visualized in the right atrium. Aortic Valve: The aortic valve is trileaflet. There is no evidence of aortic valve regurgitation. Mitral Valve: The mitral valve is mildly thickened. There is trace mitral valve regurgitation. Tricuspid Valve: The tricuspid valve is structurally normal. There is trace tricuspid regurgitation. The Doppler estimated RVSP is within normal limits at 22.9 mmHg. Pulmonic Valve: The pulmonic valve is not well visualized. There is physiologic pulmonic valve regurgitation. Pericardium: There is a trivial pericardial effusion. There is no evidence of cardiac tamponade. Aorta: The aortic root is normal. Systemic Veins: The inferior vena cava size appears small. There is IVC inspiratory collapse greater than 50%. CONCLUSIONS: 1. Left ventricular systolic function is moderately decreased with a 30-35% estimated ejection fraction. 2. There is global hypokinesis of the left ventricle with minor regional variations. 3. There is a trivial pericardial effusion 4. There is no evidence of cardiac tamponade. 5. RVSP within normal limits. QUANTITATIVE DATA SUMMARY: TRICUSPID VALVE/RVSP: Normal Ranges: Peak TR Velocity: 2.23 m/s RV Syst Pressure: 22.9 mmHg (< 30mmHg) [id number] Claudio Quinn MD Electronically signed on 10/04/2022 at 10:51:37 AM Final Normal [facility] GLUCOSE-POCTon 10-04-2022 Glucose [Mass/Vol] 245 mg/dL High 74 - 99 [facility] Comment on above: Performed By: #### G ROVERTO #### [facility] [address] [place] [address] Glucose [Mass/Vol] 137 mg/dL High 74 - 99 [facility] Comment on above: Performed By: #### G ROVERTO ####[facility] [place] [address] Glucose Test strip manual (B ld) [Mass/Vol]on 10-04-2022 Glucose [Mass/Vol] 245 mg/dL High 74 - 99 mg/dL [facility] Interpretation and review of laboratory results Abnormal [facility] Glucose [Mass/Vol] 137 mg/dL High 74 - 99 mg/dL [facility] Interpretation and review of laboratory results Abnormal [facility] Laboratory - Chemistry and C hemistry - challengeon 10-04-2022 Glucose [Mass/Vol] 245 mg/dL above high threshold 74 - 99 [facility] [address] [employer] Work Phone: Glucose [Mass/Vol] 137 mg/dL above high threshold 74 - 99 [facility] [address] [employer] Work Phone: Order Reconciliationon 10-04 Order Reconciliation Page 1 Discharge Reconciliation Document Reconciliation Type: Discharge requested on behalf of Aldo Diaz (Advanced Practice Nurse) done by Aldo Diaz (VISUAL DISPLAY MANAGER-[facility]) Discharge - Reconciliation: 04-Oct-2022 10:53 by: Aldo Diaz (VISUAL DISPLAY MANAGER-[facility]) Home Medications EnteredHOME MEDICATIONS AT DISCHARGE DateReconciliation Comment/ Additional Information calcitriol 0.5 mcg oral capsule 1 cap(s) orally once a day 26-Jan-2022 12:27 calcitriol 0.5 mcg oral capsule 1 cap(s) orally once a day 26-Jan-2022 12:27 calcitriol 0.5 mcg oral capsule is continued as calcitriol 0.5 mcg oral capsule Colace 100 mg oral capsule 1 cap(s) orally once a day 26-Jan-2022 12:27 Colace 100 mg oral capsule 1 cap(s) orally once a day 26-Jan-2022 12:27 Colace 100 mg oral capsule is continued as Colace 100 mg oral capsule Epogen 10,000 units/mL preservative-free injectable solution 1.3 milliliter(s) injectable every 28 days 26-Jan-2022 15:08 Epogen 10,000 units/mL preservative-free injectable solution 1.3 milliliter(s) injectable every 28 days 26-Jan-2022 15:08 Epogen 10,000 units/mL preservative-free injectable solution is continued as Epogen 10,000 units/mL preservative-free injectable solution furosemide 20 mg oral tablet 1 tab(s) orally once a day 26-Jan-2022 12:32 furosemide 20 mg oral tablet 1 tab(s) orally once a day 26-Jan-2022 12:32 furosemide 20 mg oral tablet is continued as furosemide 20 mg oral tablet gabapentin 300 mg oral capsule 1 cap(s) orally 2 times a day 13-Apr-2022 11:40 gabapentin 300 mg oral capsule 1 cap(s) orally 2 times a day 13-Apr-2022 11:40 gabapentin 300 mg oral capsule is continued as gabapentin 300 mg oral capsule HumaLOG KwikPen 100 units/mL injectable solution sliding scale 26-Jan-2022 15:06 HumaLOG KwikPen 100 units/mL injectable solution sliding scale 26-Jan-2022 15:06 HumaLOG KwikPen 100 units/mL injectable solution is continued as HumaLOG KwikPen 100 units/mL injectable solution Lantus Solostar Pen 100 units/mL subcutaneous solution 30 unit(s) subcutaneous once a day (at bedtime) 03-Oct-2022 13:03 Lantus Solostar Pen 100 units/mL subcutaneous solution 30 unit(s) subcutaneous once a day (at bedtime) 03-Oct-2022 13:03 Lantus Solostar Pen 100 units/mL subcutaneous solution is continued as Lantus Solostar Pen 100 units/mL subcutaneous solution metoprolol succinate 25 mg oral tablet, extended release 1 tab(s) orally once a day 03-Oct-2022 13:08 metoprolol succinate 25 mg oral tablet, extended release 1 tab(s) orally once a day 03-Oct-2022 13:08 metoprolol succinate 25 mg oral tablet, extended release is continued as metoprolol succinate 25 mg oral tablet, extended release PreserVision AREDS Lutein oral capsule 1 cap(s) orally once a day 13-Apr-2022 11:43 PreserVision AREDS Lutein oral capsule 1 cap(s) orally once a day 13-Apr-2022 11:43 PreserVision AREDS Lutein oral capsule is continued as PreserVision AREDS Lutein oral capsule Senna 8.6 mg oral tablet 1 tab(s) orally once a day (at bedtime) 26-Jan-2022 12:35 Senna 8.6 mg oral tablet 1 tab(s) orally once a day (at bedtime) 26-Jan-2022 12:35 Senna 8.6 mg oral tablet is continued as Senna 8.6 mg oral tablet simvastatin 40 mg oral tablet 1 tab(s) orally once a day (at bedtime) 13-Apr-2022 11:39 simvastatin 40 mg oral tablet 1 tab(s) orally once a day (at bedtime) 13-Apr-2022 11:39 simvastatin 40 mg oral tablet is continued as simvastatin 40 mg oral tablet venlafaxine 37.5 mg oral tablet 1 tab(s) orally once a day 13-Apr-2022 11:42 venlafaxine 37.5 mg oral tablet 1 tab(s) orally once a day 13-Apr-2022 11:42 venlafaxine 37.5 mg oral tablet is continued as venlafaxine 37.5 mg oral tablet Current OrdersDateHOME MEDICATIONS AT DISCHARGE DateReconciliation Comment/ Additional Information Acetaminophen Tablet (TYLENOL)DOSE = 650 mg Oral Every 6 Hours, PRN Pain - Mild (1-3) 03-Oct-2022 14:18 Acetaminophen is not required Calcitriol Capsule (ROCALTROL)DOSE = 0.5 microgram(s) Oral Daily 03-Oct-2022 14:04 Calcitriol is not required ceFAZolin 2 gram/ D5W 100 mL Premix IVPB (ANCEF)OnceRecommended Infusion Time: 15 minute(s) 03-Oct-2022 08:40 ceFAZolin 2 gram/ D5W 100 mL Premix IVPB is not required Dextrose 50% in Water Injectable DOSE = 25 gram(s) IntraVenous Push Every 15 Minutes, PRN Blood Glucose 70 mg/dL or LESS & HAS IV access;Clinician Notes: IF patient HAS a secure IV access & is Unconscious, Conscious, NPO or Unable to Eat or Drink. R 03-Oct-2022 14:04 Dextrose 50% in Water Injectable is not required Docusate Capsule (COLACE)DOSE = 100 mg Oral Daily 03-Oct-2022 14:04 Docusate is not required Furosemide Tablet (LASIX)DOSE = 20 mg Oral Daily 03-Oct-2022 14:04 Furosemide is not required Gabapentin CapsuleDOSE = 300 mg Oral 2 Times a Day 03-Oct-2022 14:04 Gabapentin is not required Glucagon Injectable DOSE = 1 mg IntraMuscular Every 15 Minutes, PRN Blood Glucose 70 mg/dL or LESS & NO IV ac (more content not included)... [facility] Radiologyon 10-04-2022 XR Chest 2 Views Normal -[address] Work Phone: XR chest 2 viewon 10-04-2022 Features of mild congestion/pulmonary edema noted, appears slightly worse from previous study. [facility] RADIOLOGY [facility] Interpreted By: [facility] MAXX WINTERS MD Patient Name: VAL ERICKSON STUDY: TH CHEST 2 VIEW PA AND LAT; ; 10/04/2022 9:20 am INDICATION: Pneumothorax . COMPARISON: 04/16/2022, ACCESSION NUMBER(S): [id number] ORDERING CLINICIAN: ALDO DIAZ TECHNIQUE: Chest PA and lateral view. FINDINGS: Left-sided AICD noted. Mildly prominent cardiac silhouette. Minimal interstitial prominence in the lungs. Mild degenerative changes in thoracic spine. Moderate dextroscoliosis noted. [facility] RADIOLOG[facility] Maxx Johns M D - 10/04/2022 Interpreted By: MAXX JOHNS MD Patient Name: VAL ERICKSON STUDY: TH CHEST 2 VIEW PA AND LAT; ; 10/04/2022 9:20 am INDICATION: Pneumothorax . COMPARISON: 04/16/2022, ACCESSION NUMBER(S): [id number] ORDERING CLINICIAN: ALDO DIAZ TECHNIQUE: Chest PA and lateral view. FINDINGS: Left-sided AICD noted. Mildly prominent cardiac silhouette. Minimal interstitial prominence in the lungs. Mild degenerative changes in thoracic spine. Moderate dextroscoliosis noted. IMPRESSION: Features of mild congestion/pulmonary edema noted, appears slightly worse from previous study. [facility] Work Phone: Radiology Study observation (narrative) [facility] Work Phone: XR chest 2 viewOrdered By: Sophia Johns on 10-04-2022 [facility] Work Phone: Admission Risk Screen - Adul ton 10-03-2022 Admission Risk Screen - Adult Allergies: Allergies: levofloxacin: Rash Sulfacetamide Sodium: Rash Patient Verification: New W ID Band Applied in my Departmentyes Patient Identity Verified Bypatient ID Band FULL Name, include Middle, spelling matches patient's ID used for verificationyes ID Band Matches Patient ID used for Verficationyes ID Band MRN Matches EMR MRNyes Visitor Restriction: Coronavirus Visitor Restriction: Reasonable restrictions to in-person visitors will be observed due to current coronavirus pandemic. Travel History: COVID-19 Screening Completedno exposure or symptoms Travel or Exposure Past 30 DaysNO travel to International locations in the past 30 days Ebola AlertFor Ebola-like Symptoms: Isolate Patient and Notify Provider/Assistant Producer For Contact: Notify Provider/Assistant Producer Advance Directive: Advance Directive/DNRyes Advance Directive typeLiving Will, Durable Power of Marketing Production Manager for Healthcare Living Will AvailabilityLiving Will not available now Living Will [id number] Durable Power of Marketing Production Manager AvailabilityDPOA not available now Durable Power of Marketing Production Manager [id number] Durable Power of Marketing Production Manager contact (name and number)Rd Erickson (Son) Advanced Directive CommentPt mentioned if her heart would stop she does not want to be resuscitated. [place] Fall Screen: History of falling (immediate or previous)no (0) Secondary Diagnosisyes (15) Intravenous Therapy/ Heparin/Saline Lockyes (20) Gait/Transferringweak (10) Ambulatory Aidscrutches/walker/cane (15) Mental Statusoriented to own ability (0) Score: Low risk (<25). Moderate risk (25-44). High risk (>44).60 [place] InterventionsHIGH INTERVENTIONS *Low and Moderate Interventions Plus: * supervised toileting at all times Family Violence Screen: Are you or have you been threatened or abused physically, emotionally, or sexually by anyoneno Do you feel UNSAFE going back to the place where you are livingno Clinical assessment: Are there any apparent signs of injuries/behaviors that could be related to abuse/neglectno Social Service Consult for abuse/neglect needed this visitno Functional Screen: Functional Screen: In the recent/past 2-4 weeks, patient or family have noticedno issues that require a speech/language consult at this time AM-PAC- Basic Mobility/Daily Activity: Patient baseline bedboundno Turning from your back to your side while in a flat bed without using bedrailsa lot Moving from lying on your back to sitting on the side of a flat bed without using bedrailsa lot Moving to and from bed to chair (including a wheelchair)a lot Standing up from a chair using your arms (e.g. wheelchair or bedside chair)a lot To walk in hospital rooma lot Climbing 3-5 steps with railinga lot Basic Mobility - Total Score12 Putting on and taking off regular lower body clothinga lot Bathing (including washing, rinsing, drying)a little Putting on and taking off regular upper body clothingnone Toileting, which includes using toilet, bedpan or urinala little Taking care of personal grooming such as brushing teethnone Eating Mealsnone Daily Activity - Total Score20 Learning Assessment (Patient): Patient is Able to be Assessed for Learningyes Factors Influencing Readiness to Learnacuteness of illness Factors that Impact Ability to Learnnone Devices/Methods Used to Communicateglasses Learning Preferencesverbal instruction; written material Cultural Considerationsnone Developmental Considerationsnone Pentecostal Considerationsnone Learning Assessment (Other Learner): Other learner availableno Depression Screen: During the past month, have you often been bothered by feeling down, depressed or hopelessno During the past month, have you often had little interest or pleasure in doing thingsno Have you had any thoughts of harming anyone elseno [place] Suicide: Risk Screen Not Applicable/Able to Answerable to be screened In the Past Month: Have you wished you were or could go to sleep and not wake upno In the Past Month: Have you had any actual thoughts of killing yourselfno Lifetime: Have you ever done, started to do, or prepared to do anything to end your lifeno [place] Suicide Risknegative Adult Nutrition Screen: Have you recently lost weight without tryingno Have you been eating poorly because of a decreased appetiteno Malnutrition Screening Tool Score0 Malnutrition Screening Tool RiskMST = 0 or 1 Not at risk. Eating well with little or no weight loss Nutrition Consult needed this visitno Can Patient Participate in Room Serviceyes Patient requires Paper Dishes/Plastic Utensilsno Pain Screen: Pain Scalenumerical 0-10 Pain Scale Educationteaching provided Current Pain Level0 = None Acceptable Pain Level0 = None Expression of Pain (nonverbal)verbalization Chronic Painno Spiritual Screen: Are there any cultu (more content not included)... Normal [facility] GLUCOSE-POCTon 10-03-2022 Glucose [Mass/Vol] 238 mg/dL High 74 - 99 [facility] Comment on above: Performed By: #### G ROVERTO ####[facility] [place] [address] Glucose [Mass/Vol] 139 mg/dL High 74 - 99 [facility] Comment on above: Performed By: #### G ROVERTO #### [facility] [address] [place] [address] Glucose [Mass/Vol] 169 mg/dL High 74 - 99 [facility] Comment on above: Performed By: #### G ROVERTO #### [facility] [address] [place] [address] Glucose Test strip manual (B ld) [Mass/Vol]on 10-03-2022 Glucose [Mass/Vol] 238 mg/dL High 74 - 99 mg/dL [facility] Interpretation and review of laboratory results Abnormal [facility] Glucose [Mass/Vol] 139 mg/dL High 74 - 99 mg/dL [facility] Interpretation and review of laboratory results Abnormal [facility] Glucose [Mass/Vol] 169 mg/dL High 74 - 99 mg/dL [facility] Interpretation and review of laboratory results Abnormal [facility] Laboratory - Chemistry and C hemistry - challengeon 10-03-2022 Glucose [Mass/Vol] 238 mg/dL above high threshold 74 - 99 [facility] Work Phone: Glucose [Mass/Vol] 139 mg/dL above high threshold 74 - 99 [facility] Work Phone: Laboratory - Coagulationon 0 10-03-2022 INR Coag (PPP) [Relative time] 1.0 {INR} 0.9 - 1.1 [facility] Work Phone: PT Coag (PPP) [Time] 11.7 s 9.8 - 12.8 [facility] Work Phone: Comment on above: Note new reference liliana mcconnell as of 09/04/2022 at 10:00am. Order Reconciliationon 10-03 Order Reconciliation Page 1 Admission Reconciliation Document Reconciliation Type: Admission requested on behalf of Aldo Diaz (Advanced Practice Nurse) done by Aldo Diaz (VISUAL DISPLAY MANAGER-[facility]) Admission - Reconciliation: 03-Oct-2022 14:04 by: Aldo Diaz (VISUAL DISPLAY MANAGER-[employer]) Home MedicationsEnteredLast Dose TakenReconciled with current Order Reconciliation Comment/ Additional Information calcitriol 0.5 mcg oral capsule 1 cap(s) orally once a [id number]-Oct-2022 AM Calcitriol Capsule (ROCALTROL)DOSE = 0.5 microgram(s) Oral Dailycalcitriol 0.5 mcg oral capsule continued as the inpatient order Calcitriol Colace 100 mg oral capsule 1 cap(s) orally once a [id number] UNKNOWN Docusate Capsule (COLACE)DOSE = 100 mg Oral DailyColace 100 mg oral capsule continued as the inpatient order Docusate Epogen 10,000 units/mL preservative-free injectable solution 1.3 milliliter(s) injectable every 28 [id number] UNKNOWN Reviewed and Held furosemide 20 mg oral tablet 1 tab(s) orally once a [id number] 3 AM Furosemide Tablet (LASIX)DOSE = 20 mg Oral Dailyfurosemide 20 mg oral tablet continued as the inpatient order Furosemide gabapentin 300 mg oral capsule 1 cap(s) orally 2 times a [id number]-Oct-2022 AM Gabapentin CapsuleDOSE = 300 mg Oral 2 Times a Daygabapentin 300 mg oral capsule continued as the inpatient order Gabapentin HumaLOG KwikPen 100 units/mL injectable solution sliding [id number]-Oct-2022 PM Communication Order Every 15 Minutes, PRN, BG 41-70 mg/dLGive 15 Grams of Carbohydrates and Repeat until BG reaches goal.Select 1 of the followin cup of skim milk or 4 ounces of fruit juice or regular soda. Patient must be CONSCIOUS & able to eat or drink.Discontinue when BG reaches 100 mg/dL or greater.HumaLOG KwikPen 100 units/mL injectable solution continued as the inpatient order Communication Order; HumaLOG KwikPen 100 units/mL injectable solution continued as the inpatient order Blood Glucose POCT; HumaLOG KwikPen 100 units/mL injectable solution continued as the inpatient order Education, Diabetes Self Management; HumaLOG KwikPen 100 units/mL injectable solution continued as the inpatient order Call Provider; HumaLOG KwikPen 100 units/mL injectable solution continued as the inpatient order Call Provider; HumaLOG KwikPen 100 units/mL injectable solution continued as the inpatient order Call Provider; HumaLOG KwikPen 100 units/mL injectable solution continued as the inpatient order Insulin Lispro Mild Corrective Scale; HumaLOG KwikPen 100 units/mL injectable solution continued as the inpatient order Dextrose 50% in Water Injectable; HumaLOG KwikPen 100 units/mL injectable solution continued as the inpatient order Glucagon Injectable HumaLOG KwikPen 100 units/mL injectable solution sliding -[id number]-Oct-2022 PM Blood Glucose POCT Once, PRN for BG 41-70 mg/dL Retest BG 15 Minutes AFTER every hypoglycemic intervention. Discontinue when BG is greater than 100 mg/dL.HumaLOG KwikPen 100 units/mL injectable solution continued as the inpatient order Communication Order; HumaLOG KwikPen 100 units/mL injectable solution continued as the inpatient order Blood Glucose POCT; HumaLOG KwikPen 100 units/mL injectable solution continued as the inpatient order Education, Diabetes Self Management; HumaLOG KwikPen 100 units/mL injectable solution continued as the inpatient order Call Provider; HumaLOG KwikPen 100 units/mL injectable solution continued as the inpatient order Call Provider; HumaLOG KwikPen 100 units/mL injectable solution continued as the inpatient order Call Provider; HumaLOG KwikPen 100 units/mL injectable solution continued as the inpatient order Insulin Lispro Mild Corrective Scale; HumaLOG KwikPen 100 units/mL injectable solution continued as the inpatient order Dextrose 50% in Water Injectable; HumaLOG KwikPen 100 units/mL injectable solution continued as the inpatient order Glucagon Injectable HumaLOG KwikPen 100 units/mL injectable solution sliding [id number]-Oct-2022 PM Education, Diabetes Self Management Educational materials to be reviewed by Nursing Division of Care.HumaLOG KwikPen 100 units/mL injectable solution continued as the inpatient order Communication Order; HumaLOG KwikPen 100 units/mL injectable solution continued as the inpatient order Blood Glucose POCT; HumaLOG KwikPen 100 units/mL injectable solution continued as the inpatient order Education, Diabetes Self Management; HumaLOG KwikPen 100 units/mL injectable solution continued as the inpatient order Call Provider; HumaLOG KwikPen 100 units/mL injectable solution continued as the inpatient order Call Provider; HumaLOG KwikPen 100 units/mL injectable solution continued as the inpatient order Call Provider; HumaLOG KwikPen 100 units/mL injectable solution continued as the inpatient order Insulin Lispro Mild Corrective Scale; HumaLOG KwikPen 100 un (more content not included)... Normal [facility] PT Coag (PPP) [Time]on 10-03 INR Coag (PPP) [Relative time] 1.0 {INR} 0.9 - 1.1 [facility] PT/INRon 10-03-2022 PT Coag (PPP) [Time] 11.7 s Normal 9.8 - 12.8 [facility] Comment on above: Result Comment: Note new reference range as of 09/04/2022 at 10:00am. Performed By: #### P TINR #### [facility] [address] [place] [address] PT, INR 1.0 Normal 0.9 - 1.1 [facility] Comment on above: Performed By: #### P TINR #### [facility] [address] [place] [address] Patient Profile - Adult v2on 10-03-2022 Patient Profile - Adult v2 Profile: Initial Info: How to be AddressedJudy(1) Spoken Language PreferredEnglish (1) Stated Reason for AdmissionPacemaker Wants Family/Rep Notified of Admissionn/a; family present Notify PCPnotify PCP Informed of Patient Visiting Rightsyes Arrived From[place] Patient Belongingsnone; remains with patient Patient Belongings Remaining with Patientclothing; vision aids Medications Brought to Hospitalno General Health: Blood Avoidance/Restrictionsno ne(2) Weight in kg118 kilogram(s)(3) Weight in ftu647.1 pound(s) Weight Methodactual (measured) (3) Scale Typestanding Height in cm159.9 centimeter(s)(3) Height in feet5 feet Height in inches2.99 inch(es) Height Methodstated BMI (kg/m2)46.151 square meter RSP Based Care: How would you like to participate in your careCommunication What is the number one concern for you during this hospitalizationN/A What is the most important thing we can do to support you during this hospitalizationn/A Is there anything we need to know to best care for Lacho/A Substance: Smoking Statusnever smoker Alcohol Usedenies Health Mgmt: Symptoms/Conditions Managed at Homecardiovascular; endocrine Cardiovascular Symptoms/Conditionshyper tension Cardiovascular Management Strategiesmedical device Cardiovascular Managementmanaged Endocrine Symptoms/Conditionsdiabe jay jay Endocrine Management Strategiesmedication therapy Endocrine Managementmanaged Relationship/Environ: Resource/Environmental Concernsnone Primary Source of Support/Comfortchild(cindy ) Lives Withalone Living Arrangementsapartment Services Anticipated at Transitionnone Anticipated Transition Tohome Significant IndicatorsComplete Information Review: Allergies, Home Meds and Significant Events have been Reviewed and Verified with Patient/Familyyes ALLERGY, INTOLERANCE, ADVERSE EVENT: Allergies: levofloxacin: Drug, Rash, Active Sulfacetamide Sodium: Drug, Rash, Active Electronic Signatures: Marilu Perea (SYLVAIN) (Signed 03-Oct-2022 18:20) Authored: Initial Info, General Health, RSP Based Care, Substance, Health Mgmt, Relationship/Environ, Additional Information Last Updated: 03-Oct-2022 18:20 by Marilu Perea (SYLVAIN) References: 1. Data Referenced From Patient Profile - Procedure 13-Apr-2022 11:39 2. Data Referenced From Patient Profile - Adult v2 26-Jan-2022 16:27 3. Data Referenced From 1. Vital Signs 03-Oct-2022 13:01 Normal [facility] Protime-INRon 10-03-2022 PT Coag (PPP) [Time] 11.7 s [facility] Comment on above: Note new reference liliana mcconnell as of 09/04/2022 at 10:00am. Basophil percentageOrdered B y: Peewee Louise on 09-14-2022 Basophil percentage 3.0 mg/dL 2.5-4.9 [facility] Chloride [Moles/Vol] 101 mmol/L 98-107 [facility] Glucose [Mass/Vol] 267 mg/dL 74-106 [facility] Comment on above: Glucose result great er than or equal to 200 mg/dLsuggests DIABETES MELLITUS per A.D.A. criteria. Potassium [Moles/Vol] 4.5 mmol/L 3.5-5.1 [facility] Sodium [Moles/Vol] 134 mmol/L 136-145 [facility] Blood hemoglobin measurement (mass/volume)Ordered By: Peewee Louise on 09-14-2022 Hemoglobin (Bld) [Mass/Vol] 12.0 g/dL 12.0-15.0 [facility] Hematocrit Auto (Bld) [Volum e fraction]Ordered By: Peewee Louise on 09-14-2022 Hematocrit (Bld) [Volume fraction] 36.3 % 37-47 [facility] Laboratory - Chemistry and C hemistry - challengeOrdered By: Peewee Louise on 09-14-2022 CO2 [Moles/Vol] 26.0 mmol/L 21.0-32.0 [facility] Urea nitrogen/Creatinine [Mass ratio] 21.1 mg/mg 10-20 [facility] No Panel InformationOrdered By: Peewee Louise on 09-14-2022 Estimated GFR (MDRD) Amer 24 mL/min >60 [facility] Comment on above: GFR Calc Estimated GFR (MDRD) Non-Af Amer 20 mL/min >60 [facility] Comment on above: Non- GFR Calc Serum or plasma albumin jarrett urement (mass/volume)Ordered By: Peewee Louise on 09-14-2022 Albumin [Mass/Vol] 3.4 g/dL 3.2-5.0 [facility] Serum or plasma calcium jarrett urement (mass/volume)Ordered By: Peewee Louise on 09-14-2022 Calcium [Mass/Vol] 10.3 mg/dL 8.5-10.1 [facility] Serum or plasma creatinine m easurement (mass/volume)Ordered By: Peewee Louise on 09-14-2022 Creatinine [Mass/Vol] 2.51 mg/dL 0.55-1.02 [facility] Comment on above: The validity of the calculated GFR & GFRAA in patients over 70 years has not been determined. Clinical correlation is essential. Serum or plasma urea nitroge n measurement (mass/volume)Ordered By: Peewee Louise on 09-14-2022 Urea nitrogen [Mass/Vol] 53 mg/dL - [facility] BASIC METABOLIC PANELon Anion gap [Moles/Vol] 16 mmol/L Normal 10 - 20 [facility] Comment on above: Performed By: #### C BC #### [address] [address] Calcium [Mass/Vol] 10.3 mg/dL Normal 8.6 - 10.3 [facility] Comment on above: Performed By: #### C BC #### [address] [address] Chloride [Moles/Vol] 99 mmol/L Normal 98 - 107 [facility] Comment on above: Performed By: #### C BC #### [address] [address] Creatinine [Mass/Vol] 2.23 mg/dL High 0.50 - 1.05 [facility] Comment on above: Performed By: #### C BC #### [address] [address] GFR/1.73 sq M.predicted among non-blacks MDRD (S/P/Bld) [Vol rate/Area] 22 mL/min/{1.73_m2} Abnormal >90 [facility] Comment on above: Result Comment: CALC ULATIONS OF ESTIMATED GFR ARE PERFORMED USING THE 2020 CKD-EPI STUDY REFIT EQUATION WITHOUT THE RACE VARIABLE FOR THE IDMS-TRACEABLE CREATININE METHODS. https://jasn.asnjournals.org/content//ASN.257378 9447 Performed By: #### C BC #### [address] [address] Glucose [Mass/Vol] 317 mg/dL High 74 - 99 [facility] Comment on above: Performed By: #### C BC #### [address] [address] HCO3 (Bld) [Moles/Vol] 24 mmol/L Normal 21 - 32 [facility] Comment on above: Performed By: #### C BC #### [address] [address] Potassium [Moles/Vol] 4.5 mmol/L Normal 3.5 - 5.3 [facility] Comment on above: Performed By: #### C BC #### [address] [address] Sodium [Moles/Vol] 134 mmol/L Low 136 - 145 [facility] Comment on above: Performed By: #### C BC #### [address] [address] Urea nitrogen [Mass/Vol] 42 mg/dL High 6 - 23 [facility] Comment on above: Performed By: #### C BC #### [address] [address] Narrative Note - Outpatient- Heart Failureon 08-21-2022 Narrative Note - Outpatient-Heart Failure Narrative Note: Discipline/ClinicHeart Failure Description Val arrived ambulatory to the Heart Failure Clinic with her walker for her scheduled visit. States she is feeling good but has been tired from her gabapentin. Denies increased shortness of breath, PND, or Orthopnea. Eating and sleeping without distress. Uses 2L of oxygen at night. She informed us that she will be going to have a pacemaker / defibrillator placed in [place] on October 03. A BMP was drawn and results called to Dr. Antoine. Kidney functions have improved a little. Dr. Antoine wants to keep the regimen the same and will return 1 week after her pacemaker insertion. Medications reviewed. Reviewed signs and symptoms of increased heart failure and when to call for help. Vitals: BP: 138/70 P: 87 R: 22 O2: 97% on RA Weight: 264.8/120.1 Previous Weight: 263.0/119.3 Gain of: 1.8 lbs Lung Sounds: Clear Edema: +1 bilateral ankles JVD: Absent Labs: BMP Medications Administered: none Medication Titration: none Next Appointment Date: October 07 2022 @ 12pm Note in EMR for Treating Physician: Dr. Antoine In-House Supervising Physician: Dr. Bailey Electronic Signatures: Macho Pierre (RN) (Signed 21-Aug-2022 11:49) Authored: Narrative Note - OP Last Updated: 21-Aug-2022 11:49 by Macho Pierre (SYLVAIN) Normal [facility] Basophil percentageOrdered B y: Dr. Louise on 08-15-2022 Basophil percentage 2.6 mg/dL 2.5-4.9 [facility] Chloride [Moles/Vol] 102 mmol/L 98-107 [facility] Glucose [Mass/Vol] 238 mg/dL 74-106 [facility] Comment on above: Glucose result great er than or equal to 200 mg/dLsuggests DIABETES MELLITUS per A.D.A. criteria. Potassium [Moles/Vol] 4.3 mmol/L 3.5-5.1 [facility] Sodium [Moles/Vol] 136 mmol/L 136-145 [facility] Blood hemoglobin measurement (mass/volume)Ordered By: Dr. Louise on 08-15-2022 Hemoglobin (Bld) [Mass/Vol] 12.1 g/dL 12.0-15.0 [facility] Hematocrit Auto (Bld) [Volum e fraction]Ordered By: Dr. Louise on 08-15-2022 Hematocrit (Bld) [Volume fraction] 36.6 % 37-47 [facility] Laboratory - Chemistry and C hemistry - challengeOrdered By: Dr. Louise on 08-15-2022 CO2 [Moles/Vol] 25.0 mmol/L 21.0-32.0 [facility] Urea nitrogen/Creatinine [Mass ratio] 16.6 mg/mg 10-20 [facility] No Panel InformationOrdered By: Dr. Louise on 08-15-2022 Estimated GFR (MDRD) Amer 25 mL/min >60 [facility] Comment on above: GFR Calc Estimated GFR (MDRD) Non-Af Amer 21 mL/min >60 [facility] Comment on above: Non- GFR Calc Serum or plasma albumin jarrett urement (mass/volume)Ordered By: Dr. Louise on 08-15-2022 Albumin [Mass/Vol] 3.3 g/dL 3.2-5.0 [facility] Serum or plasma calcium jarrett urement (mass/volume)Ordered By: Dr. Louise on 08-15-2022 Calcium [Mass/Vol] 10.4 mg/dL 8.5-10.1 [facility] Serum or plasma creatinine m easurement (mass/volume)Ordered By: Dr. Louise on 08-15-2022 Creatinine [Mass/Vol] 2.41 mg/dL 0.55-1.02 [facility] Comment on above: The validity of the calculated GFR & GFRAA in patients over 70 years has not been determined. Clinical correlation is essential. Serum or plasma urea nitroge n measurement (mass/volume)Ordered By: Dr. Louise on 08-15-2022 Urea nitrogen [Mass/Vol] 40 mg/dL 7-18 [facility] Whole blood hemoglobin A1c/t otal hemoglobin ratio (mass fraction)Ordered By: Kacy Older on 08-15-2022 HbA1c (Bld) [Mass fraction] 11.6 % 3.8-5.6 [facility] Comment on above: Normal < 5.7 % Predi abetic 5.7 - 6.4 % Diabetic >or= 6.5 % Please note range changes. Established Visit (Nephrolog y)on 08-14-2022 Established Visit (Nephrology) Diagnoses/Problems CHF (congestive heart failure) (428.0) (I50.9) LBBB (left bundle branch block) (426.3) (I44.7) Morbid obesity (278.01) (E66.01) Renal dysfunction (593.9) (N28.9) Patient Discussion/Summary I discussed in detail with her At this time I would recommend leaving the port in place The port itself goes above the clavicle and into the left internal jugular vein The placement for the implantable device is best suited on the left side of her chest From my standpoint this is still a possibility as the access goes into the subclavian vein and so a wire should be able to be floated in the pacemaker leads likely should be able to be floated past the device For dialysis patients often we have a pacemaker and a dialysis catheter in place and so the port wire itself is actually smaller than a dialysis catheter Infectious risk I would say is quite minimal as the port has been in place for a long time and as long as it is accessed properly I do not think there is any increased risk of infection I have discussed with them that once they meet with Dr. Browne if this is absolutely needed to come out then we can take it out but I would recommend it be left in place Please call with any further issues or needs Provider Impressions Chronic kidney disease Anemia of chronic disease Secondary hyperparathyroidism Poor vascular access with a left internal jugular port in place CHF with need for implantable device Chief Complaint MEDIPORT REMOVAL History of Present IllnessShe is here for new patient visit She was referred here by Dr. Browne for evaluation of removing a port She does have a history of chronic renal dysfunction and has had issues with blood draws for many years and has now had a port on the left chest present for 7 years She gets blood draws and this is used for her blood draws Her kidney function has been fairly stable She is in need of a pacemaker Review of Systems Constitutional: no fever, no chills, no recent weight gain and no recent weight loss. Eyes: no blurred vision and no diplopia. ENT: no hearing loss, no earache, no sore throat, no swollen glands in the neck and no nasal discharge. Cardiovascular: no chest pain, no palpitations and no lower extremity edema. Respiratory: no shortness of breath, no chronic cough and no shortness of breath during exertion. Gastrointestinal: no abdominal pain, no constipation, no heartburn, no vomiting, no bloody stools and no change in bowel movements. Genitourinary: no dysuria and no hematuria. Musculoskeletal: no arthralgias and no myalgias. Skin: no rashes and no skin lesions. Neurological: no headaches and no dizziness. Psychiatric: no confusion, no depression and no anxiety. Endocrine: no heat intolerance, no cold intolerance, appetite not increased, no thyroid disorder, no increased urinary frequency and no dry skin. Hematologic/Lymphatic: does not bleed easily and does not bruise easily. All other systems have been reviewed and are negative for complaint. Active Problems Abnormal CXR (793.2) (R93.89) CHF (congestive heart failure) (428.0) (I50.9) Chronic combined systolic and diastolic HF (heart failure), NYHA class 3 (428.42) (I50.42) Dyspnea on exertion (786.09) (R06.09) Hypoxemia (799.02) (R09.02) LBBB (left bundle branch block) (426.3) (I44.7) Morbid obesity (278.01) (E66.01) Obstructive lung disease (496) (J44.9) Shortness of breath (786.05) (R06.02) Surgical History History of Ankle surgery X2 History of Appendectomy History of Hysterectomy History of Knee replacement X2 History of Shoulder surgery History of Tonsillectomy History of Ureteroplasty History of Varicose vein ligation Family History Family history of malignant neoplasm (V16.9) (Z80.9) Family history of cerebrovascular accident (CVA) (V17.1) (Z82.3) Family history of diabetes mellitus (V18.0) (Z83.3) Family history of coronary artery disease (V17.3) (Z82.49) Family history of malignant neoplasm (V16.9) (Z80.9) Family history of cerebrovascular accident (CVA) (V17.1) (Z82.3) Social History No alcohol use No caffeine use No illicit drug use Non-smoker (V49.89) (Z78.9) Patient has healthcare proxy and living will (V49.89) (Z78.9) Allergies Levaquin TABS Recorded By: Marly Willis; 03/28/2022 11:28:11 AM sulfa Recorded By: Marly Willis; 03/28/2022 11:28:11 AM Current Meds Medication NameInstruction Calcitriol 0.5 MCG Oral CapsuleTAKE 1 TAB DAILY Clotrimazole 1 % External CreamUSE DIRECTED Colace 50 MG CAPSTAKE DIRECTED. Epogen 21986 UNIT/ML Injection SolutionINJECT SUBCUTANEOUSLY DIRECTED. Furosemide 20 MG Oral TabletTAKE 1 TABLET DAILY. Gabapentin 300 MG Oral CapsuleTake 1 capsule twice daily Lantus SoloStar 100 UNIT/ML Subcutaneous Solution Pen-injectorINJECT 40 UNIT Daily Lidocaine 5 % External PatchAPPLY DIRECTED. Melatonin 5 MG Oral TabletTAKE DIRECTED. Metoprolol Succina (more content not included)... Normal [facility] Office Visit (Cardiology)on 08-07-2022 Follow-up visit Diagnoses/Problems Assessed Morbid obesity (278.01) (E66.01) Chronic combined systolic and diastolic HF (heart failure), NYHA class 3 (428.42) (I50.42) LBBB (left bundle branch block) (426.3) (I44.7) Orders LBBB (left bundle branch block) IO EKG Electrocardiogram- 12 Lead; Status:Complete; Done: 07Aug2022 Chief Complaint VAL ERICKSON is being seen for a consultation for an AICD check. discuss defibulator History of Present [id number] female with history of DM, neuropathy, HLD, HTN who is being referred by primary ballistics teacher for evaluation for primary prevention ICD. Active Problems Problems Abnormal CXR (793.2) (R93.89) CHF (congestive heart failure) (428.0) (I50.9) Dyspnea on exertion (786.09) (R06.09) Hypoxemia (799.02) (R09.02) Morbid obesity (278.01) (E66.01) Obstructive lung disease (496) (J44.9) Shortness of breath (786.05) (R06.02) Surgical History Problems History of Ankle surgery X2 History of Appendectomy History of Hysterectomy History of Knee replacement X2 History of Shoulder surgery History of Tonsillectomy History of Ureteroplasty History of Varicose vein ligation Current Meds Medication NameInstruction Calcitriol 0.5 MCG Oral CapsuleTAKE 1 TAB DAILY Clotrimazole 1 % External CreamUSE DIRECTED Colace 50 MG CAPSTAKE DIRECTED. Epogen 38870 UNIT/ML Injection SolutionINJECT SUBCUTANEOUSLY DIRECTED. Furosemide 20 MG Oral TabletTAKE 1 TABLET DAILY. Gabapentin 300 MG Oral CapsuleTake 1 capsule twice daily Lantus SoloStar 100 UNIT/ML Subcutaneous Solution Pen-injectorINJECT 40 UNIT Daily Lidocaine 5 % External PatchAPPLY DIRECTED. Melatonin 5 MG Oral TabletTAKE DIRECTED. Metoprolol Succinate ER 50 MG Oral Tablet Extended Release 24 HourTAKE 1 TABLET ONCE DAILY. PreserVision/Lutein Oral CapsuleTAKE DIRECTED. Senna Laxative 8.6 MG Oral TabletTAKE DIRECTED. Simvastatin 40 MG Oral TabletTAKE 1 TABLET DAILY DIRECTED. Venlafaxine HCl ER 37.5 MG Oral Capsule Extended Release 24 HourTAKE 1 CAPSULE ONCE DAILY WITH FOOD. Allergies Medication Levaquin TABS Recorded By: Marly Willis; 03/28/2022 11:28:11 AM sulfa Recorded By: Marly Willis; 03/28/2022 11:28:11 AM Family History Mother Family history of malignant neoplasm (V16.9) (Z80.9) Father Family history of cerebrovascular accident (CVA) (V17.1) (Z82.3) Son Family history of diabetes mellitus (V18.0) (Z83.3) Sister Family history of coronary artery disease (V17.3) (Z82.49) Family history of malignant neoplasm (V16.9) (Z80.9) Brother Family history of cerebrovascular accident (CVA) (V17.1) (Z82.3) Social History Problems No alcohol use No caffeine use No illicit drug use Non-smoker (V49.89) (Z78.9) Patient has healthcare proxy and living will (V49.89) (Z78.9) Vitals Vital Signs Recorded: [id number] 03:16PM Heart Rate88 Zfncyped62 Wpsrvnejw17 Height5 ft 3 in Qculwt034 lb BMI Ihiqnkpapn77.17 kg/m2 BSA Calculated2.14 Tobacco Useb) No Falls Screening (Age 18+)a) No falls within the last year O2 [id number] Physical Exam Constitutional: Well developed, obese, awake/alert/oriented x3, no distress Head/Neck: Neck supple, No JVD, no bruits Respiratory: Patent airways, CTAB, normal breath sounds with good chest expansion Cardiovascular: Regular, rate and rhythm, no murmurs, normal S1 and S2 Extremities: normal extremities, no cyanosis edema Neurological: alert and oriented x3 Impressions In-Office ECG (08/07/2022): Sinus rhythm with left bundle branch block first-degree AV block. QRS 130 ms QT of 374 with QTc of 465. My Interpretation of Reviewed Study(s): ? MUGA scan (June 2022): LVEF estimated 23% with by lateral ventricular enlargement decreased global contractility ?Echo (January 2022): Severely decreased LVEF of 30 to 35%. Normal biatrial size normal right ventricular size and function. Moderate MR no evidence of TR no pericardial effusion noted #HFrEF NYHA Class III #LBBB QRS 130ms -I discussed with pt and her son about ICD, given LBBB 130ms pt is a candidate for ONLINE PROGRAM COORDINATOR-D - Pt has old left sided mediport in place, since pt has no need for HD or chemotherapy, will consult with Dr. Lloyd about removing the Mediport. If it is not able to be removed then plan for Right sided ONLINE PROGRAM COORDINATOR-D placement - I used the [place] Program for Patient Centered Decisions tool to discuss the Risks and Benefits of an Implantable Cardioverter Defibrillator implantation during my discussion with the patient. I gave the patient the document for their review. # Pre-procedure Planning - Procedure Type: ONLINE PROGRAM COORDINATOR-D - [employer] - Planned Date: [] - [] - Anesthesia Needed: Moderate Sedation - Anticoagulation: None - Other medication changes needed for procedure: Hold Medications morning of procedure - Contrast allergy? None - Imaging needed? None - Blood work to be ordered CBC and BMP within 30 days of procedure RTC in 2 months post pro (more content not included)... Normal [facility] Tobacco Screening.on 023 Fall risk assessment a) No falls within the last year -Nephrology [facility] V[facility]ctor 3 DO Work Phone: Tobacco use status CP b) No -Nephrology [facility] V[facility]ctor 3 DO Work Phone: Established Visit (Pulmonary Medicine)on 08-06-2022 Established Visit (Pulmonary Medicine) Diagnoses/Problems Dyspnea on exertion (786.09) (R06.09) Hypoxemia (799.02) (R09.02) Morbid obesity (278.01) (E66.01) Obstructive lung disease (496) (J44.9) Orders Dyspnea on exertion Changed: From Trelegy Ellipta 100-62.5-25 MCG/ACT Inhalation Aerosol Powder Breath Activated INHALE 1 PUFFS Daily To Trelegy Ellipta 100-62.5-25 MCG/ACT Inhalation Aerosol Powder Breath Activated INHALE 1 PUFFS Daily. RINSE MOUTH OUT WITH H20 AFTER EACH USE Rx By: Paula Walter; Dispense: 0 Days ; #:3 X 60 Each Pack; Refill: 3;For: Dyspnea on exertion; YOSHI = N; Sent To: [facility]; Last Updated By: Leticia Lopez; 08/06/2022 11:20:18 AM Provider Impressions Impressions: 1. Moderate obstructive airway disease. 2. Dyspnea on exertion. 3. History of hypoxemia when sleeping and with activity during the day. 4. Morbid obesity. Recommendations: 1. Continue with Trelegy 100 mcg daily. 2. 2 L of oxygen at nighttime and as needed with activity during the day. 3. I asked her son or other family member to observe how the patient is sleeping and see if there are episodes where she stops breathing. 4. I would decrease her gabapentin to see if this will decrease her nap during the day. This note was transcribed using the [employer] Dictation system. There may be grammatical, punctuation, or verbiage errors that occur with voice recognition programs. Chief Complaint VAL ERICKSON is here for a 3 month follow-up and HERE WITH SON, RD. Reason for Visit: MARTINEZ. Appointment requested by: DR. TURPIN. History of Present IllnessThis patient was seen today on a 3-month follow-up visit. She was accompanied by her son Rd. Patient reports she has had no hospitalizations or urgent care visits since we last saw her. She is currently on Trelegy 100 daily and she is supposed to be using 2 L of oxygen at nighttime and with activity during the day but clearly she is not doing that. She occasionally wears the oxygen at nighttime but reports often is not on her face when she wakes up in the morning. The patient denies any cough but does have some clear tenacious sputum production in the morning. She denies any wheezing or hemoptysis. She does report having some shortness of breath with activity during the daytime. Review of Systems On review of systems the patient denies any fever, chills, rhinitis or sore throat. She denies significant lower extremity edema and is not a smoker. All other review of systems were noncontributory. Refer to the HPI. Active Problems Abnormal CXR (793.2) (R93.89) CHF (congestive heart failure) (428.0) (I50.9) Dyspnea on exertion (786.09) (R06.09) Hypoxemia (799.02) (R09.02) Morbid obesity (278.01) (E66.01) Obstructive lung disease (496) (J44.9) Shortness of breath (786.05) (R06.02) Surgical History History of Ankle surgery X2 History of Appendectomy History of Hysterectomy History of Knee replacement X2 History of Shoulder surgery History of Tonsillectomy History of Ureteroplasty History of Varicose vein ligation Family History Family history of malignant neoplasm (V16.9) (Z80.9) Family history of cerebrovascular accident (CVA) (V17.1) (Z82.3) Family history of diabetes mellitus (V18.0) (Z83.3) Family history of coronary artery disease (V17.3) (Z82.49) Family history of malignant neoplasm (V16.9) (Z80.9) Family history of cerebrovascular accident (CVA) (V17.1) (Z82.3) Social History No alcohol use No illicit drug use Non-smoker (V49.89) (Z78.9) Occasional caffeine consumption Patient has healthcare proxy and living will (V49.89) (Z78.9) Allergies Levaquin TABS Recorded By: Marly Willis; 03/28/2022 11:28:11 AM sulfa Recorded By: Marly Willis; 03/28/2022 11:28:11 AM Current Meds Medication NameInstructionReason Metoprolol Succinate ER 50 MG Oral Tablet Extended Release 24 HourTAKE 1 TABLET ONCE DAILY.CHF (congestive heart failure) Trelegy Ellipta 100-62.5-25 MCG/ACT Inhalation Aerosol Powder Breath ActivatedINHALE 1 PUFFS DailyDyspnea on exertion Calcitriol 0.5 MCG Oral CapsuleTAKE 1 TAB DAILY Clotrimazole 1 % External CreamUSE DIRECTED Colace 50 MG CAPSTAKE DIRECTED. Epogen 85611 UNIT/ML Injection SolutionINJECT SUBCUTANEOUSLY DIRECTED. Furosemide 20 MG Oral TabletTAKE 1 TABLET DAILY. Gabapentin 300 MG Oral CapsuleTAKE 1 CAPSULE 3 TIMES DAILY. HumaLOG KwikPen 100 UNIT/ML SOLNUSE DIRECTED. Lantus SoloStar 100 UNIT/ML Subcutaneous Solution Pen-injectorUSE DIRECTED. Lidocaine 5 % External PatchAPPLY DIRECTED. Melatonin 5 MG Oral TabletTAKE DIRECTED. PreserVision/Lutein Oral CapsuleTAKE DIRECTED. Senna Laxative 8.6 MG Oral TabletTAKE DIRECTED. Simvastatin 40 MG Oral TabletTAKE 1 TABLET DAILY DIRECTED. Venlafaxine HCl ER 37.5 MG Oral Capsule Extended Release 24 HourTAKE 1 CAPSULE ONCE DAILY WITH FOOD. Vitals Vital Signs Recorded: 06Aug2022 11:03AM Rdxurbtsmms11.5 F, Temporal Heart Rate88 Sys (more content not included)... Normal CPM [employer] Tobacco Screening.on 023 Fall risk assessment a) No falls within the last year [facility] V[facility]ctor 3 DO Work Phone: Tobacco use status [facility] b) No [facility] Víctor 3 DO Work Phone: Basophil percentageOrdered B y: Dr. Louise on 07-20-2022 Basophil percentage 3.4 mg/dL 2.5-4.9 [facility] Chloride [Moles/Vol] 101 mmol/L 98-107 [facility] Glucose [Mass/Vol] 313 mg/dL 74-106 [facility] Comment on above: Glucose result great er than or equal to 200 mg/dLsuggests DIABETES MELLITUS per A.D.A. criteria. Potassium [Moles/Vol] 4.4 mmol/L 3.5-5.1 [facility] Sodium [Moles/Vol] 138 mmol/L 136-145 [facility] Blood hemoglobin measurement (mass/volume)Ordered By: Dr. Louise on 07-20-2022 Hemoglobin (Bld) [Mass/Vol] 11.6 g/dL 12.0-15.0 [facility] Hematocrit Auto (Bld) [Volum e fraction]Ordered By: Dr. Louise on 07-20-2022 Hematocrit (Bld) [Volume fraction] 36.1 % 37-47 [facility] Iron measurement (mass/mass) Ordered By: Dr. Louise on 07-20-2022 Iron (Unsp spec) [Mass/Mass] 73 ug/dL 50-170 [facility] Laboratory - Chemistry and C hemistry - challengeOrdered By: Dr. Louise on 07-20-2022 CO2 [Moles/Vol] 28.0 mmol/L 21.0-32.0 [facility] Urea nitrogen/Creatinine [Mass ratio] 21.9 mg/mg 10-20 [facility] No Panel InformationOrdered By: Dr. Louise on 07-20-2022 Estimated GFR (MDRD) Amer 24 mL/min >60 [facility] Comment on above: GFR Calc Estimated GFR (MDRD) Non-Af Amer 20 mL/min >60 [facility] Comment on above: Non- GFR Calc Total Iron Binding Capacity 307 ug/dL 250-450 [facility] Serum or plasma albumin jarrett urement (mass/volume)Ordered By: Dr. Louise on 07-20-2022 Albumin [Mass/Vol] 3.1 g/dL 3.2-5.0 [facility] Serum or plasma calcium jarrett urement (mass/volume)Ordered By: Dr. Louise on 07-20-2022 Calcium [Mass/Vol] 10.5 mg/dL 8.5-10.1 [facility] Serum or plasma creatinine m easurement (mass/volume)Ordered By: Dr. Louise on 07-20-2022 Creatinine [Mass/Vol] 2.47 mg/dL 0.55-1.02 [facility] Comment on above: The validity of the calculated GFR & GFRAA in patients over 70 years has not been determined. Clinical correlation is essential. Serum or plasma ferritin bubba surement (mass/volume)Ordered By: Dr. Louise on 07-20-2022 Ferritin [Mass/Vol] 79 ng/mL 8 [facility] Serum or plasma iron saturat ion measurement (mass fraction)Ordered By: Dr. Louise on 07-20-2022 Iron saturation [Mass fraction] 23.8 % 15.0-55.0 [facility] Serum or plasma urea nitroge n measurement (mass/volume)Ordered By: Dr. Louise on 07-20-2022 Urea nitrogen [Mass/Vol] 54 mg/dL 718 [facility] BASIC METABOLIC PANELon 06-17 Anion gap [Moles/Vol] 14 mmol/L Normal 10 - 20 [facility] Comment on above: Performed By: #### B MP #### [address] [address] Calcium [Mass/Vol] 10.2 mg/dL Normal 8.6 - 10.3 [facility] Comment on above: Performed By: #### B MP #### [address] [address] Chloride [Moles/Vol] 97 mmol/L Low 98 - 107 [facility] Comment on above: Performed By: #### B MP #### [address] [address] Creatinine [Mass/Vol] 2.31 mg/dL High 0.50 - 1.05 [facility] Comment on above: Performed By: #### B MP #### [address] [address] GFR/1.73 sq M.predicted among non-blacks MDRD (S/P/Bld) [Vol rate/Area] 21 mL/min/{1.73_m2} Abnormal >90 [facility] Comment on above: Result Comment: CALC ULATIONS OF ESTIMATED GFR ARE PERFORMED USING THE 2020 CKD-EPI STUDY REFIT EQUATION WITHOUT THE RACE VARIABLE FOR THE IDMS-TRACEABLE CREATININE METHODS. https://jasn.asnjournals.org/content//ASN.865776 9132 Performed By: #### B MP #### [address] [address] Glucose [Mass/Vol] 276 mg/dL High 74 - 99 [facility] Comment on above: Performed By: #### B MP #### [address] [address] HCO3 (Bld) [Moles/Vol] 28 mmol/L Normal 21 - 32 [facility] Comment on above: Performed By: #### B MP #### [address] [address] Potassium [Moles/Vol] 4.7 mmol/L Normal 3.5 - 5.3 [facility] Comment on above: Performed By: #### B MP #### [address] [address] Sodium [Moles/Vol] 134 mmol/L Low 136 - 145 [facility] Comment on above: Performed By: #### B MP #### [address] [address] Urea nitrogen [Mass/Vol] 54 mg/dL High 6 - 23 [facility] Comment on above: Performed By: #### B MP #### [address] [address] Laboratory - Chemistry and C hemistry - challengeon 07-09-2022 Anion gap [Moles/Vol] 14 mmol/L 10 - 20 - Cardiology [facility] [address] Work Phone: Calcium [Mass/Vol] 10.2 mg/dL 8.6 - 10.3 -Car diology -[place] [address] Work Phone: Chloride [Moles/Vol] 97 mmol/L below low threshold 98 - 107 [address] Work Phone: CO2 [Moles/Vol] 28 mmol/L 21 - 32 [address] Work Phone: Creatinine [Mass/Vol] 2.31 mg/dL above high threshold See Below [address] Work Phone: Comment on above: Reference Range: 0.5 0 - 1.05 Glucose [Mass/Vol] 276 mg/dL above high threshold 74 - 99 [address] Work Phone: Potassium [Moles/Vol] 4.7 mmol/L 3.5 - 5.[address] Work Phone: Sodium [Moles/Vol] 134 mmol/L below low threshold 136 - [address] Work Phone: Urea nitrogen [Mass/Vol] 54 mg/dL above high threshold 6 - [address] Work Phone: MUGA SCAN INJECTIONon 2022 MUGA SCAN INJECTION Patient Name: VAL ERICKSON STUDY: MUGA SCAN INJECTION; MUGA (GATED CARDIAC BLOOD POOL); 07/09/2022 11:53 am INDICATION: dyspnea I50.9: CHF (congestive heart failure). COMPARISON: None. ACCESSION NUMBER(S): [id number]; [id number] ORDERING CLINICIAN: CHRIS ANTOINE TECHNIQUE: DIVISION OF NUCLEAR MEDICINE ECG GATED CARDIAC BLOOD POOL SCAN (MUGA): Multiple ECG gated images of the heart were acquired after radiolabeling of the circulating erythrocyte blood pool with an intravenous dose of 25 mCi of Tc-99m via UltraTag technique. Computer quantification of LV function was performed. CODING: Baseline x Subsequent monitoring Post-therapy FINDINGS: Both ventricles appear to be enlarged. There is evidence of decreased global contractility. Left ventricular ejection fraction was estimated to be 23%. IMPRESSION: Suggestion of bilateral ventricular enlargement with decreased global contractility and a left ventricular ejection fraction calculated to be 23%. Images were interpreted at [facility]. Electronically signed by: PAULA PAREDES MD [facility] Narrative Note - Outpatient- Heart Failureon 07-09-2022 Narrative Note - Outpatient-Heart Failure Narrative Note: Discipline/ClinicHeart Failure Description Val arrived ambulatory to the Heart Failure Clinic for her scheduled visit for follow up from increasing Metoprolol. Val states she is feeling good . Denies increased shortness of breath, PND, or Orthopnea. She wears 2L O2 at night. Eating and sleeping without distress. Home medications reviewed and updated in EMR. Val just recently had an appointment with [facility], they discussed the possibility of an ICD placement and Val wanted to know her exact EF, so a Muga scan was completed today. A BMP was drawn today and results were called to Dr. Antoine. Plan is to continue current regimen and follow up in 6 week. Unable to uptitrate GDMT d/t kidney function. Reviewed signs and symptoms of increased heart failure and when to call for help. Vitals: BP: 110/73 HR: 83 Resp: 20 SPO2: 94% on room air Weight: 263.0lbs Previous Weight: 269.4lbsLoss of: 6.4lbs Lung Sounds: clear Edema: none JVD: absent Labs: BMP Medications Administered: none Next Appointment Date: August 21, 2022@ 1pm Note in EMR for treating Physician: Dr. Antoine In-House Supervising Physician: Dr. Eduardo Matthews Electronic Signatures: Juliana Calloway (RN) (Signed 09-Jul-2022 13:20) Authored: Narrative Note - OP Last Updated: 09-Jul-2022 13:20 by Juliana Calloway (RN) [facility] No Panel Informationon 07-09 21 {mL/min/1.73m2} Abnormal >90 MP-Car diology -[place] [address] Work Phone: Comment on above: CALCULATIONS OF TE MATED GFR ARE PERFORMED USING THE 2020 CKD-EPI STUDY REFIT EQUATION WITHOUT THE RACE VARIABLE FOR THE IDMS-TRACEABLE CREATININE METHODS.https://jasn.asnjournals.org/content/early/ N.6483776938 Normal MP-Cardiology -[place] [address] [employer] Work Phone: Falls Screening (Age 18+)on 06-27-2022 Fall risk assessment b) One or more fall s in the last year [employer] Phone: Tobacco use status [facility] b) No [employer] Work Phone: Office Visit (Cardiology)on 06-27-2022 Follow-up visit Diagnoses/Problems Assessed CHF (congestive heart failure) (428.0) (I50.9) Orders CHF (congestive heart failure) NM Muga (Gated Cardiac Blood Pool); Status:Hold For - Scheduling; Requested for:27Jun2022; Radiologist to Determine Optimal Study : Y What are the patient's signs and symptoms? : dyspnea Chief Complaint Heart failure with reduced ejection fraction History of Present [id number] female with a medical history of diabetes, neuropathy, hypertension, hyperlipidemia who was first seen at [facility] January 29, 2022 with shortness of breath that at that time was attributed to pneumonia. Creatinine was elevated between 1.9-2.2. Cardiac issues include: ACC/AHA stage C HFrEF -Echocardiogram dated January 29, 2022 showed reduced EF to 30-35%. -On metoprolol succinate 50 mg. Currently the patient notes that her shortness of breath is largely at baseline. Denies any orthopnea/PND. Does have some lower extremity edema that has been responsive to Lasix and is improving. Denies any clear exertional angina. Notably has chronic kidney disease with baseline creatinine 1.9-2.2. Active Problems Problems Abnormal CXR (793.2) (R93.89) CHF (congestive heart failure) (428.0) (I50.9) Dyspnea on exertion (786.09) (R06.09) Hypoxemia (799.02) (R09.02) Morbid obesity (278.01) (E66.01) Obstructive lung disease (496) (J44.9) Shortness of breath (786.05) (R06.02) Surgical History Problems History of Ankle surgery X2 History of Appendectomy History of Hysterectomy History of Knee replacement X2 History of Shoulder surgery History of Tonsillectomy History of Ureteroplasty History of Varicose vein ligation Current Meds Medication NameInstruction Calcitriol 0.5 MCG Oral CapsuleTAKE 1 TAB DAILY Clotrimazole 1 % External CreamUSE DIRECTED Colace 50 MG CAPSTAKE DIRECTED. Epogen 52613 UNIT/ML Injection SolutionINJECT SUBCUTANEOUSLY DIRECTED. Furosemide 20 MG Oral TabletTAKE 1 TABLET DAILY. Gabapentin 300 MG Oral CapsuleTAKE 1 CAPSULE 3 TIMES DAILY. HumaLOG KwikPen 100 UNIT/ML SOLNUSE DIRECTED. Lantus SoloStar 100 UNIT/ML Subcutaneous Solution Pen-injectorUSE DIRECTED. Lidocaine 5 % External PatchAPPLY DIRECTED. Melatonin 5 MG Oral TabletTAKE DIRECTED. Metoprolol Succinate ER 25 MG Oral Tablet Extended Release 24 HourTAKE 1 TABLET ONCE DAILY. PreserVision/Lutein Oral CapsuleTAKE DIRECTED. Probiotic CAPSUSE DIRECTED. Senna Laxative 8.6 MG Oral TabletTAKE DIRECTED. Simvastatin 40 MG Oral TabletTAKE 1 TABLET DAILY DIRECTED. Trelegy Ellipta 100-62.5-25 MCG/ACT Inhalation Aerosol Powder Breath ActivatedINHALE 1 PUFFS Daily Venlafaxine HCl ER 37.5 MG Oral Capsule Extended Release 24 HourTAKE 1 CAPSULE ONCE DAILY WITH FOOD. Allergies Medication Levaquin TABS Recorded By: Marly Willis; 03/28/2022 11:28:11 AM sulfa Recorded By: Marly Willis; 03/28/2022 11:28:11 AM Family History Mother Family history of malignant neoplasm (V16.9) (Z80.9) Father Family history of cerebrovascular accident (CVA) (V17.1) (Z82.3) Son Family history of diabetes mellitus (V18.0) (Z83.3) Sister Family history of coronary artery disease (V17.3) (Z82.49) Family history of malignant neoplasm (V16.9) (Z80.9) Brother Family history of cerebrovascular accident (CVA) (V17.1) (Z82.3) Social History Problems No alcohol use No illicit drug use Non-smoker (V49.89) (Z78.9) Occasional caffeine consumption Patient has healthcare proxy and living will (V49.89) (Z78.9) Review of Systems Constitutional: Denies any fever or chills Eyes: Denies any eye pain or blurry vision ENT: Denies any ear pain or hearing loss Cardiovascular: The heart rate is not slow, the heart rate is not fast Respiratory: Denies any asthma/wheezing Gastrointestinal: Denies any nataliia colored stools or fatty food intolerance Genitourinary: Denies any blood in the urine or pelvic pain Musculoskeletal: Denies any swelling in the joints or difficulty walking Skin: Denies any skin lumps or skin lesions Neurological: Denies any dizziness/tingling Vitals Vital Signs Recorded: 27Jun2022 11:05AM Heart Rate76 Ybmdjbri776 Qefqwvrja03 Height5 ft 3 in Mlszua766 lb 2 oz BMI Ppfkyoxnjr28.97 kg/m2 BSA Calculated2.18 Tobacco Useb) No Falls Screening (Age 18+)b) One or more falls in the last year O2 Mfvpczznzk67 Physical Exam General: AANDOx3; obese HEENT: NC/AT; EOMI; PERRLA, external ear is normal Neck: supple; no JVD Chest: CTAB; no wheezing CVS: S1S2 normal, no murmurs Abdomen: Soft, NT/ND, no organomegaly Extremities: no clubbing/cyanosis/2+ edema bilateral lower extremities Neuro: Grossly intact Results/Data Basic Metabolic [id number] 10:58AMHussain, Chris Test NameResultFlagReference Glucose, Bwuun635 mg/dLH74 - 99 Sodium, Ngaqv618 mmol/LL136 - 145 POTASSIUM4.9 mmol/L3.5 - 5.3 Chloride, Uzdeg899 mmol/L98 - 107 B (more content not included)... Normal [facility] Basophil percentageOrdered B y: Dr. Louise on 06-22-2022 Basophil percentage 4.0 mg/dL 2.5-4.9 [facility] Chloride [Moles/Vol] 101 mmol/L 98-107 [facility] Glucose [Mass/Vol] 175 mg/dL 74-106 [facility] Comment on above: Fasting Glucose resu lt greater than or equal to 126 mg/dL suggests DIABETES MELLITUS per A.D.A. criteria. Potassium [Moles/Vol] 4.2 mmol/L 3.5-5.1 [facility] Sodium [Moles/Vol] 138 mmol/L 136-145 [facility] Blood hemoglobin measurement (mass/volume)Ordered By: Dr. Louise on 06-22-2022 Hemoglobin (Bld) [Mass/Vol] 11.2 g/dL 12.0-15.0 [facility] Hematocrit Auto (Bld) [Volum e fraction]Ordered By: Dr. Louise on 06-22-2022 Hematocrit (Bld) [Volume fraction] 35.6 % 37-47 [facility] Laboratory - Chemistry and C hemistry - challengeOrdered By: Dr. Louise on 06-22-2022 CO2 [Moles/Vol] 29.0 mmol/L 21.0-32.0 [facility] Urea nitrogen/Creatinine [Mass ratio] 20.3 mg/mg 10- [facility] No Panel InformationOrdered By: Dr. Louise on 06-22-2022 Estimated GFR (MDRD) Amer 25 mL/min >60 [facility] Comment on above: GFR Calc Estimated GFR (MDRD) Non-Af Amer 21 mL/min >60 [facility] Comment on above: Non- GFR Calc Serum or plasma albumin jarrett urement (mass/volume)Ordered By: Dr. Louise on 06-22-2022 Albumin [Mass/Vol] 3.2 g/dL 3.2-5.0 [facility] Serum or plasma calcium jarrett urement (mass/volume)Ordered By: Dr. Louise on 06-22-2022 Calcium [Mass/Vol] 9.7 mg/dL 8.5-10.1 [facility] Serum or plasma creatinine m easurement (mass/volume)Ordered By: Dr. Louise on 06-22-2022 Creatinine [Mass/Vol] 2.41 mg/dL 0.55-1.02 [facility] Comment on above: The validity of the calculated GFR & GFRAA in patients over 70 years has not been determined. Clinical correlation is essential. Serum or plasma urea nitroge n measurement (mass/volume)Ordered By: Dr. Louise on 06-22-2022 Urea nitrogen [Mass/Vol] 49 mg/dL 10-02 [facility] BASIC METABOLIC PANELon 05-17 Anion gap [Moles/Vol] 15 mmol/L Normal - [facility] Comment on above: Performed By: #### C BC #### [id number] [place] [address] Calcium [Mass/Vol] 9.4 mg/dL Normal 8.6 - 10.3 [facility] Comment on above: Performed By: #### C BC #### [address] [address] Chloride [Moles/Vol] 101 mmol/L Normal 98 - 107 [facility] Comment on above: Performed By: #### C BC #### [address] [address] Creatinine [Mass/Vol] 2.27 mg/dL High 0.50 - 1.05 [facility] Comment on above: Performed By: #### C BC #### [address] [address] GFR/1.73 sq M.predicted among non-blacks MDRD (S/P/Bld) [Vol rate/Area] 22 mL/min/{1.73_m2} Abnormal >90 [facility] Comment on above: Result Comment: CALC ULATIONS OF ESTIMATED GFR ARE PERFORMED USING THE 2020 CKD-EPI STUDY REFIT EQUATION WITHOUT THE RACE VARIABLE FOR THE IDMS-TRACEABLE CREATININE METHODS. https://jasn.asnjournals.org/content/early//ASN.252862 2136 Performed By: #### C BC #### [address] [address] Glucose [Mass/Vol] 197 mg/dL High 74 - 99 [facility] Comment on above: Performed By: #### C BC #### [address] [address] HCO3 (Bld) [Moles/Vol] 24 mmol/L Normal 21 - 32 [facility] Comment on above: Performed By: #### C BC #### [address] [address] Potassium [Moles/Vol] 4.9 mmol/L Normal 3.5 - 5.3 [facility] Comment on above: Performed By: #### C BC #### [address] [address] Sodium [Moles/Vol] 135 mmol/L Low 136 - 145 [facility] Comment on above: Performed By: #### C BC #### [id number] [place] [address] Urea nitrogen [Mass/Vol] 46 mg/dL High 6 - 23 [facility] Comment on above: Performed By: #### C BC #### [id number] [place] [address] Laboratory - Chemistry and C hemistry - challengeon 06-11-2022 Anion gap [Moles/Vol] 15 mmol/L 10 - 20 - Cardiology [address] Work Phone: [phone] Calcium [Mass/Vol] 9.4 mg/dL 8.6 - 10.3 -Car diology -[place] [address] [place] Work Phone: [phone] Chloride [Moles/Vol] 101 mmol/L 98 - 107 -C ardiology -[place] [address] [place] Work Phone: CO2 [Moles/Vol] 24 mmol/L 21 - 32 MP-Cardio logy -[place] [address] [employer] Work Phone: Creatinine [Mass/Vol] 2.27 mg/dL above high threshold See Below -[address] Work Phone: Comment on above: Reference Range: 0.5 0 - 1.05 Glucose [Mass/Vol] 197 mg/dL above high threshold 74 - 99 -[place] [address] [place] Work Phone: Potassium [Moles/Vol] 4.9 mmol/L 3.5 - 5.3 - [address] Work Phone: Sodium [Moles/Vol] 135 mmol/L below low threshold 136 - 145 -[address] Work Phone: [phone] Urea nitrogen [Mass/Vol] 46 mg/dL above high threshold 6 - 23 -[address] Work Phone: [phone] Narrative Note - Outpatient- Heart Failureon 06-11-2022 Narrative Note - Outpatient-Heart Failure Narrative Note: Discipline/ClinicHeart Failure Description Val arrived ambulatory with stand up walker to the Heart Failure Clinic for her scheduled visit. States she is feeling good latelyl. She did have to take some extra dose of lasix because she ate a sub from [place]. She denies increased shortness of breath, PND, or Orthopnea. Eating and sleeping without distress. Has not had to use oxygen in weeks. A BMP was drawn and results called to Dr. Antoine. Medications reviewed. Plan is to increase metoprolol succinate to 50mg daily and return in 1 month. Called [facility] and called in 30 day supply with 11 refills. Reviewed signs and symptoms of increased heart failure and when to call for help. Vitals: BP: 116/78 HR: 89 R: 20 O2: 94% on RA Weight: 269.4/122.2 Previous Weight: 274.2/124.4 Loss of: 4.8lbs Lung Sounds: Clear diminshed Edema: +2 bilateral legs JVD: Absent Labs: BMP Medications Administered: none Medication Titration: Metoprolol Succinate 50mg Daily Next Appointment Date: July 09 2022 @ 11am Note in EMR for Treating Physician: Dr. Antoine In-House Supervising Physician: Dr. Bailey Electronic Signatures: Macho Pierre (RN) (Signed 11-Jun-2022 11:53) Authored: Narrative Note - OP Last Updated: 11-Jun-2022 11:53 by Macho Pierre (RN) [facility] No Panel Informationon 06-11 22 {mL/min/1.73m2} Abnormal >90 [facility] Work Phone: Comment on above: CALCULATIONS OF TE MATED GFR ARE PERFORMED USING THE 2020 CKD-EPI STUDY REFIT EQUATION WITHOUT THE RACE VARIABLE FOR THE IDMS-TRACEABLE CREATININE METHODS.https://jasn.asnjournals.org/content/early/ N.8582895231 Basophil percentageOrdered B y: Dr. Louise on 05-23-2022 Basophil percentage 3.4 mg/dL 2.5-4.9 [facility] Chloride [Moles/Vol] 104 mmol/L 98-[address] [facility] [address] [facility] Glucose [Mass/Vol] 217 mg/dL 74-106 [facility] Comment on above: Glucose result great er than or equal to 200 mg/dLsuggests DIABETES MELLITUS per A.D.A. criteria. Potassium [Moles/Vol] 4.4 mmol/L 3.5-5.1 [facility] Sodium [Moles/Vol] 139 mmol/L 136-145 [facility] Blood hemoglobin measurement (mass/volume)Ordered By: Dr. Louise on 05-23-2022 Hemoglobin (Bld) [Mass/Vol] 11.3 g/dL 12.0-15.0 [facility] Hematocrit Auto (Bld) [Volum e fraction]Ordered By: Dr. Louise on 05-23-2022 Hematocrit (Bld) [Volume fraction] 35.9 % 37-47 [facility] Laboratory - Chemistry and C hemistry - challengeOrdered By: Dr. Louise on 05-23-2022 CO2 [Moles/Vol] 28.0 mmol/L 21.0-32.0 [facility] Urea nitrogen/Creatinine [Mass ratio] 23.4 mg/mg 10-20 [facility] No Panel InformationOrdered By: Dr. Louise on 05-23-2022 Estimated GFR (MDRD) Amer 28 mL/min >60 [facility] Comment on above: GFR Calc Estimated GFR (MDRD) Non-Af Amer 23 mL/min >60 [facility] Comment on above: Non- GFR Calc Serum or plasma albumin jarrett urement (mass/volume)Ordered By: Dr. Louise on 05-23-2022 Albumin [Mass/Vol] 3.4 g/dL 3.2-5.0 [facility] Serum or plasma calcium jarrett urement (mass/volume)Ordered By: Dr. Louise on 05-23-2022 Calcium [Mass/Vol] 10.0 mg/dL 8.5-10.1 [facility] Serum or plasma creatinine m easurement (mass/volume)Ordered By: Dr. Louise on 05-23-2022 Creatinine [Mass/Vol] 2.18 mg/dL 0.55-1.02 [facility] Comment on above: The validity of the calculated GFR & GFRAA in patients over 70 years has not been determined. Clinical correlation is essential. Serum or plasma urea nitroge n measurement (mass/volume)Ordered By: Dr. Louise on 05-23-2022 Urea nitrogen [Mass/Vol] 51 mg/dL 7-18 [facility] Office Visiton 05-22-2022 Follow-up visit Diagnoses/Problems Dyspnea on exertion (786.09) (R06.09) Hypoxemia (799.02) (R09.02) Morbid obesity (278.01) (E66.01) Obstructive lung disease (496) (J44.9) Orders Dyspnea on exertion Start: Trelegy Ellipta 100-62.5-25 MCG/ACT Inhalation Aerosol Powder Breath Activated; INHALE 1 PUFFS Daily Provider Impressions Impressions: 1. Moderate obstructive airway disease. 2. Dyspnea on exertion due to fitness and obesity. 3. Hypoxemia with activity and at nighttime. Recommendations: 1. Stay on the Trelegy?100 daily and the patient was given a prescription for that. 2. Use oxygen with activities outside of the house and increased activities at home and at nighttime. This should be at 2 L/min. At rest she does not need to wear her oxygen. 3. Follow-up with the patient in 3 months. This note was transcribed using the Nanapi Dictation system. There may be grammatical, punctuation, or verbiage errors that occur with voice recognition programs. Chief Complaint 1 MO MARTINEZ-TRIAL OF TRELEGY History of Present IllnessPatient was seen today on a 1 month follow-up visit. Her other son Maxi brought her to the appointment today. I discussed with both of them the multiple reasons for her shortness of breath which includes lack of fitness, obesity, hypoxemia with activity and moderate obstructive airway disease. She denies having any problems with the Trelegy?100 daily. It appears that she is using the oxygen as needed rather than as we outlined the last time she was here. She feels that her breathing is doing okay with activity and she had no problems with using the Trelegy. She denies any cough or sputum production and no wheezing. Review of Systems On review of systems she denies any fever, chills, rhinitis or sore throat. She does have lower extremity edema. And she is not smoking. All other review of systems were noncontributory. Refer to the HPI. Active Problems Abnormal CXR (793.2) (R93.89) CHF (congestive heart failure) (428.0) (I50.9) Dyspnea on exertion (786.09) (R06.09) Hypoxemia (799.02) (R09.02) Morbid obesity (278.01) (E66.01) Obstructive lung disease (496) (J44.9) Shortness of breath (786.05) (R06.02) Surgical History History of Ankle surgery X2 History of Appendectomy History of Hysterectomy History of Knee replacement X2 History of Shoulder surgery History of Tonsillectomy History of Ureteroplasty History of Varicose vein ligation Social History No alcohol use No illicit drug use Non-smoker (V49.89) (Z78.9) Occasional caffeine consumption Patient has healthcare proxy and living will (V49.89) (Z78.9) Allergies Levaquin TABS Recorded By: Marly Willis; 03/28/2022 11:28:11 AM sulfa Recorded By: Marly Willis; 03/28/2022 11:28:11 AM Current Meds Medication NameInstruction Calcitriol 0.5 MCG Oral CapsuleTAKE 1 TAB DAILY Clotrimazole 1 % External CreamUSE DIRECTED Colace 50 MG CAPSTAKE DIRECTED. Epogen 19215 UNIT/ML Injection SolutionINJECT SUBCUTANEOUSLY DIRECTED. Furosemide 20 MG Oral TabletTAKE 1 TABLET DAILY. Gabapentin 300 MG Oral CapsuleTAKE 1 CAPSULE 3 TIMES DAILY. HumaLOG KwikPen 100 UNIT/ML SOLNUSE DIRECTED. Lantus SoloStar 100 UNIT/ML Subcutaneous Solution Pen-injectorUSE DIRECTED. Lidocaine 5 % External PatchAPPLY DIRECTED. Melatonin 5 MG Oral TabletTAKE DIRECTED. Metoprolol Succinate ER 25 MG Oral Tablet Extended Release 24 HourTAKE 1 TABLET ONCE DAILY. PreserVision/Lutein Oral CapsuleTAKE DIRECTED. Probiotic CAPSUSE DIRECTED. Senna Laxative 8.6 MG Oral TabletTAKE DIRECTED. Simvastatin 40 MG Oral TabletTAKE 1 TABLET DAILY DIRECTED. Trelegy Ellipta 100-62.5-25 MCG/ACT Inhalation Aerosol Powder Breath Activated1 INHALATION ONCE DAILY, RINSE MOUTH OUT AFTERWARDS WITH WATER Venlafaxine HCl ER 37.5 MG Oral Capsule Extended Release 24 HourTAKE 1 CAPSULE ONCE DAILY WITH FOOD. Vitals Vital Signs Recorded: 22May2022 11:19AM Raxkmprgnwu98.9 F, Temporal Heart Cqiv729 Height5 ft 3 in Tzxrzo313 lb 12.8 oz BMI Blsaahmpzm85.44 kg/m2 BSA Calculated2.19 Tobacco Useb) No Falls Screening (Age 18+)a) No falls within the last year O2 Bownlxpzho92, Nasal Cannula Physical Exam HEENT, there is no inflammation noted of the oropharynx. Pulmonary, diminished breath sounds bilaterally. Clear to auscultation. Cardio, heart sounds are regular rate and rhythm. Extremities, no cyanosis or clubbing and +1-2 pretibial edema Psych, the patient is alert and oriented x3. Signatures Electronically signed by : Paula Walter DO; May 22 2022 12:21PM EST (Author) Normal [facility] Tobacco Screening.on 023 Fall risk assessment a) No falls within the last year [facility] [address] [facility] Work Phone: Tobacco use status [facility] b) No [facility] Work Phone: BASIC METABOLIC PANELon 04-19 Anion gap [Moles/Vol] 12 mmol/L Normal 10 - 20 [facility] Comment on above: Performed By: #### C BC #### [address] [address] Calcium [Mass/Vol] 10.3 mg/dL Normal 8.6 - 10.3 [facility] Comment on above: Performed By: #### C BC #### [address] [address] Chloride [Moles/Vol] 97 mmol/L Low 98 - 107 [facility] Comment on above: Performed By: #### C BC #### [address] [address] Creatinine [Mass/Vol] 2.26 mg/dL High 0.50 - 1.05 [facility] Comment on above: Performed By: #### C BC #### [address] [address] GFR/1.73 sq M.predicted among non-blacks MDRD (S/P/Bld) [Vol rate/Area] 22 mL/min/{1.73_m2} Abnormal >90 [facility] Comment on above: Result Comment: CALC ULATIONS OF ESTIMATED GFR ARE PERFORMED USING THE 2020 CKD-EPI STUDY REFIT EQUATION WITHOUT THE RACE VARIABLE FOR THE IDMS-TRACEABLE CREATININE METHODS. https://jasn.asnjournals.org/content/early/ASN.504259 0591 Performed By: #### C BC #### [address] [address] Glucose [Mass/Vol] 247 mg/dL High 74 - 99 [facility] Comment on above: Performed By: #### C BC #### [address] [address] HCO3 (Bld) [Moles/Vol] 29 mmol/L Normal 21 - 32 [facility] Comment on above: Performed By: #### C BC #### [address] [address] Potassium [Moles/Vol] 4.4 mmol/L Normal 3.5 - 5.3 [facility] Comment on above: Performed By: #### C BC #### [address] [address] Sodium [Moles/Vol] 134 mmol/L Low 136 - 145 [facility] Comment on above: Performed By: #### C BC #### [address] [address] Urea nitrogen [Mass/Vol] 41 mg/dL High 6 - 23 [facility] Comment on above: Performed By: #### C BC #### [address] [address] Laboratory - Chemistry and C hemistry - challengeon 05-14-2022 Anion gap [Moles/Vol] 12 mmol/L 10 - 20 [facility] DO Work Phone: Calcium [Mass/Vol] 10.3 mg/dL 8.6 - 10.3 [facility] DO Work Phone: Chloride [Moles/Vol] 97 mmol/L below low threshold 98 - 107 [facility] Work Phone: CO2 [Moles/Vol] 29 mmol/L 21 - 32 [facility] DO Work Phone: Creatinine [Mass/Vol] 2.26 mg/dL above high threshold See Below [facility] DO Work Phone: Comment on above: Reference Range: 0.5 0 - 1.05 Glucose [Mass/Vol] 247 mg/dL above high threshold 74 - 99 [facility] DO Work Phone: Potassium [Moles/Vol] 4.4 mmol/L 3.5 - 5.3 [facility] DO Work Phone: Sodium [Moles/Vol] 134 mmol/L below low threshold 136 - 145 [facility] DO Work Phone: Urea nitrogen [Mass/Vol] 41 mg/dL above high threshold 6 - 23 [facility] DO Work Phone: Narrative Note - Outpatient- Heart Failureon 05-14-2022 Narrative Note - Outpatient-Heart Failure Narrative Note: Discipline/ClinicHeart Failure Description Val arrived ambulatory with walker to the Heart Failure Clinic for her scheduled visit. She states she is feeling ok . Reports exertional shortness of breath that resolves after rest, denies PND, or Orthopnea. She reports that she is no longer using her Oxygen only with activity for far distances. Eating and sleeping without distress. Home medications reviewed with no changes. Val reports that 2 weeks ago her swelling had increased so her home health nurse had her take Lasix twice a day x 3 days and then back to daily. At her last visit we started hydralazine which was April 13, on April 18 she called in stating she was having headaches, Dr. Antoine recommended to stop Hydralazine and monitor BPs. Since stopping she is no longer having headaches and her blood pressures have been good. A BMP was drawn today and results were called to Dr. Antoine. Plan is continue current regimen and follow up in 1 month. Reviewed signs and symptoms of increased heart failure and when to call for help. Vitals: BP: 124/75 HR: 93 Resp: 20 SPO2: 94% Weight: 274.2lbs Previous Weight: 271.6lbsGain of: 2.6lbs Lung Sounds: clear Edema: +2 bl legs +3 bl ankles JVD: absent Labs: BMP Medications Administered: none Next Appointment Date: June 11, 2022@ 11am Note in EMR for treating Physician: Dr. Antoine In-House Supervising Physician: Dr. Carter Electronic Signatures: Juliana Calloway (RN) (Signed 14-May-2022 12:45) Authored: Narrative Note - OP Last Updated: 14-May-2022 12:45 by Juliana Calloway (RN) Normal [facility] No Panel Informationon 05-14 22 {mL/min/1.73m2} Abnormal >90 [facility] DO Work Phone: Comment on above: CALCULATIONS OF TE MATED GFR ARE PERFORMED USING THE 2020 CKD-EPI STUDY REFIT EQUATION WITHOUT THE RACE VARIABLE FOR THE IDMS-TRACEABLE CREATININE METHODS.https://jasn.asnjournals.org/content/early// N.1858623880 Basophil percentageOrdered B y: Dr. Louise on 04-27-2022 Basophil percentage 3.3 mg/dL 2.5-4.9 [facility] Chloride [Moles/Vol] 104 mmol/L 98-107 [facility] Glucose [Mass/Vol] 228 mg/dL 74-106 [facility] Comment on above: Glucose result great er than or equal to 200 mg/dLsuggests DIABETES MELLITUS per A.D.A. criteria. Potassium [Moles/Vol] 4.7 mmol/L 3.5-5.1 [facility] Sodium [Moles/Vol] 137 mmol/L 136-145 [facility] Blood hemoglobin measurement (mass/volume)Ordered By: Dr. Louise on 04-27-2022 Hemoglobin (Bld) [Mass/Vol] 9.9 g/dL 12.0-15.0 [facility] Hematocrit Auto (Bld) [Volum e fraction]Ordered By: Dr. Louise on 04-27-2022 Hematocrit (Bld) [Volume fraction] 32.4 % 37-47 [facility] Iron measurement (mass/mass) Ordered By: Dr. Louise on 04-27-2022 Iron (Unsp spec) [Mass/Mass] 60 ug/dL 50-170 [facility] Laboratory - Chemistry and C hemistry - challengeOrdered By: Dr. Louise on 04-27-2022 CO2 [Moles/Vol] 27.0 mmol/L 21.0-32.0 [facility] Urea nitrogen/Creatinine [Mass ratio] 19.1 mg/mg 10-20 [facility] No Panel InformationOrdered By: Dr. Louise on 04-27-2022 Estimated Creatinine Clearance Calc 18.35 ml/min [facility] Estimated GFR (MDRD) Amer 29 mL/min >60 [facility] Comment on above: GFR Calc Estimated GFR (MDRD) Non-Af Amer 24 mL/min >60 [facility] Comment on above: Non- GFR Calc Total Iron Binding Capacity 295 ug/dL 250-450 [facility] Serum or plasma albumin jarrett urement (mass/volume)Ordered By: Dr. Louise on 04-27-2022 Albumin [Mass/Vol] 2.9 g/dL 3.2-5.0 [facility] Serum or plasma calcium jarrett urement (mass/volume)Ordered By: Dr. Louise on 04-27-2022 Calcium [Mass/Vol] 9.5 mg/dL 8.5-10.1 [facility] Serum or plasma creatinine m easurement (mass/volume)Ordered By: Dr. Louise on 04-27-2022 Creatinine [Mass/Vol] 2.09 mg/dL 0.55-1.02 [facility] Comment on above: The validity of the calculated GFR & GFRAA in patients over 70 years has not been determined. Clinical correlation is essential. Serum or plasma ferritin bubba surement (mass/volume)Ordered By: Dr. Louise on 04-27-2022 Ferritin [Mass/Vol] 41 ng/mL 8-252 [facility] Serum or plasma iron saturat ion measurement (mass fraction)Ordered By: Dr. Louise on 04-27-2022 Iron saturation [Mass fraction] 20.3 % 15.0-55.0 [facility] Serum or plasma urea nitroge n measurement (mass/volume)Ordered By: Dr. Louise on 04-27-2022 Urea nitrogen [Mass/Vol] 40 mg/dL 7 [facility] Follow Up (Pulmonary Medicin e)on 04-23-2022 Follow Up (Pulmonary Medicine) Diagnoses/Problems Dyspnea on exertion (786.09) (R06.09) Hypoxemia (799.02) (R09.02) Morbid obesity (278.01) (E66.01) Obstructive lung disease (496) (J44.9) Orders Start: Trelegy Ellipta 100-62.5-25 MCG/ACT Inhalation Aerosol Powder Breath Activated; 1 INHALATION ONCE DAILY, RINSE MOUTH OUT AFTERWARDS WITH WATER Rx By: Paula Watler; Dispense: 28 Days ; #:2 Each; Refill: 0;For: Dyspnea on exertion; YOSHI = N; Dispense Sample; Last Updated By: Leticia Lopez; 04/23/2022 11:46:05 AM Provider Impressions Impressions: 1. Dyspnea on exertion. 2. Hypoxemia with activity. 3. Morbid obesity. 4. Moderate obstructive disease based on her pulmonary function studies with some improvement postbronchodilator. Recommendations: 1. We will give her a trial of Trelegy?100 with #2 samples over the next month. 2. Oxygen with activity at 2 L and at nighttime. The testing does not show need for oxygen at rest. 3. Weight loss. 4. Follow-up with the patient in 1 month. This note was transcribed using the Nanapi Dictation system. There may be grammatical, punctuation, or verbiage errors that occur with voice recognition programs. Chief Complaint VAL ERICKSON is here for a follow-up visit and here with son, Rd. Reason for Visit: Review CXR, PFT, ABG, SST, Nocturnal Pulse Ox. History of Present Illness Patient was seen today on a follow-up visit. She was accompanied by her son Rd. I reviewed her chest x-ray which on the lateral view did show what appears to be chronic vertebral compression fracture of the lower lumbar. The patient denies having any acute back pains. I reviewed her pulmonary function testing which does show evidence of some obstructive airway disease that improved post bronchodilator. Her gas transfer was reduced at 66%. [...] most likely due to some pulmonary edema. She denies any cough or sputum production and no wheezing. She has short of breath however with activity which at least in part is due to her obesity. Review of Systems On review of systems she denies any fever, chills, rhinitis or sore throat. She does have +1 lower extremity edema and she is not smoking. All other review of systems were noncontributory. Refer to the HPI. Active Problems Abnormal CXR (793.2) (R93.89) CHF (congestive heart failure) (428.0) (I50.9) Dyspnea on exertion (786.09) (R06.09) Hypoxemia (799.02) (R09.02) Shortness of breath (786.05) (R06.02) Surgical History History of Ankle surgery X2 History of Appendectomy History of Hysterectomy History of Knee replacement X2 History of Shoulder surgery History of Tonsillectomy History of Ureteroplasty History of Varicose vein ligation Family History Family history of malignant neoplasm (V16.9) (Z80.9) Family history of cerebrovascular accident (CVA) (V17.1) (Z82.3) Family history of diabetes mellitus (V18.0) (Z83.3) Family history of coronary artery disease (V17.3) (Z82.49) Family history of malignant neoplasm (V16.9) (Z80.9) Family history of cerebrovascular accident (CVA) (V17.1) (Z82.3) Social History No alcohol use No illicit drug use Non-smoker (V49.89) (Z78.9) Occasional caffeine consumption Patient has healthcare proxy and living will (V49.89) (Z78.9) Allergies Levaquin TABS Recorded By: Marly Willis; 03/28/2022 11:28:11 AM sulfa Recorded By: Marly Willis; 03/28/2022 11:28:11 AM Current Meds Medication NameInstruction Calcitriol 0.5 MCG Oral CapsuleTAKE 1 TAB DAILY Clotrimazole 1 % External CreamUSE DIRECTED Colace 50 MG CAPSTAKE DIRECTED. Epogen 35993 UNIT/ML Injection SolutionINJECT SUBCUTANEOUSLY DIRECTED. Furosemide 20 MG Oral TabletTAKE 1 TABLET DAILY. Gabapentin 300 MG Oral CapsuleTAKE 1 CAPSULE 3 TIMES DAILY. HumaLOG KwikPen 100 UNIT/ML SOLNUSE DIRECTED. Lantus SoloStar 100 UNIT/ML Subcutaneous Solution Pen-injectorUSE DIRECTED. Lidocaine 5 % External PatchAPPLY DIRECTED. Melatonin 5 MG Oral TabletTAKE DIRECTED. Metoprolol Succinate ER 25 MG Oral Tablet Extended Release 24 HourTAKE 1 TABLET ONCE DAILY. PreserVision/Lutein Oral CapsuleTAKE DIRECTED. Probiotic CAPSUSE DIRECTED. Senna Laxative 8.6 MG Oral TabletTAKE DIRECTED. Simvastatin 40 MG Oral TabletTAKE 1 TABLET DAILY DIRECTED. Venlafaxine HCl ER 37.5 MG Oral Capsule Extended Release 24 HourTAKE 1 CAPSULE ONCE DAILY WITH FOOD. Vitals Vital Signs Recorded: [id number] 11:03AM Rlckfwppzho51.8 F, Temporal Heart Juqy608 Ddhparal427 Vpuvbnsak17 Height5 ft 3 in Cucrxu740 lb 9.6 oz BMI Fyqebsmutu65.35 kg/m2 BSA Calculated2.23 (more content not included)... Normal [facility] Tobacco Screening.on 023 Fall risk assessment b) One or more fall s in the last year [facility] DO Work Phone: Tobacco use status [facility] b) No [facility] DO Work Phone: ARTERIAL BLOOD GAS,CO-OXon 0 04-16-2022 BASE EXCESS-BLOOD 3.5 mmol/L High -2.0 - 3.0 [facility] Comment on above: Performed By: #### C BC #### [address] [address] BICARB, CALCULATED 27.8 mmol/L High 22.0 - 26.0 [facility] Comment on above: Performed By: #### C BC #### [address] [address] CO HGB 2.1 % Abnormal [facility] Comment on above: Result Comment: REF VALUES NONSMOKERS 0.5-1.5% SMOKERS 0.5-10.0% Performed By: #### C BC #### [address] [address] DEOXY HGB 2.1 % Normal 0.0 - 5.0 [facility] Comment on above: Performed By: #### C BC #### [address] [address] FIO2 21 % Normal [facility] Comment on above: Performed By: #### C BC #### [place] [address] Hemoglobin (Bld) [Mass/Vol] 11.6 g/dL Low 12.0 - 16.0 [facility] Comment on above: Performed By: #### C BC #### [place] [address] MET HGB 0.8 % Normal 0.0 - 1.5 [facility] Comment on above: Performed By: #### C BC #### [place] [id number] OXY HGB 95.1 % Normal 94.0 - 98.0 [facility] Comment on above: Performed By: #### C BC #### [place] [id number] Oxygen (Bld) [Partial pressure] 80 mm[Hg] Low 85 - 95 [facility] Comment on above: Performed By: #### C BC #### [place] [id number] PATIENT TEMPERATURE 37.0 degrees C Normal [facility] Comment on above: Result Comment: NOTE : PATIENT RESULTS ARE NOT CORRECTED FOR TEMPERATURE. Performed By: #### C BC #### [place] [address] PCO2 40 mmHg Normal 38 - 42 [facility] Comment on above: Performed By: #### C BC #### [address] [address] pH (Bld) 7.45 [pH] High 7.38 - 7.42 [facility] Comment on above: Performed By: #### C BC #### [place] [id number] [place] [address] SITE OF ARTERIAL PUNCTURE R RADIAL Normal [facility] Comment on above: Performed By: #### C BC #### [address] [address] SO2 98 % Normal 94 - 100 [facility] Comment on above: Performed By: #### C BC #### [address] [address] CHEST 2 VIEW PA AND LATon CHEST 2 VIEW PA AND LAT Patient Name: VAL ERICKSON STUDY: CHEST 2 VIEW PA AND LAT; 04/16/2022 2:56 pm INDICATION: SOB R06.09: Dyspnea on exertion. COMPARISON: Chest radiograph 01/26/2022 ACCESSION NUMBER(S): [id number] ORDERING CLINICIAN: PAULA WALTER FINDINGS: PA and lateral radiographs of the chest are available for interpretation. Left chest wall MediPort with tip projecting over upper to mid right atrium, unchanged. CARDIOMEDIASTINAL SILHOUETTE: Cardiomediastinal silhouette is slightly prominent, stable in size, but although with better delineation of lower heart borders as compared to prior. Aortic knob calcifications. LUNGS: Interval improvement in bilateral lung aeration with residual mild bibasilar atelectasis and suggestion of trace left pleural effusion. No milton pulmonary edema or pneumothorax. ABDOMEN: No remarkable upper abdominal findings. BONES: No acute osseous abnormality. There is chronic appearing mild compression deformity and anterior wedging of a lower thoracic vertebral body seen on lateral projection. IMPRESSION: 1. Interval improvement in bilateral lung aeration since prior radiograph from 01/26/2022. Residual mild bibasilar atelectasis suggestion of trace left pleural effusion. 2. Chronic appearing mild compression deformity and anterior wedging of a lower thoracic vertebral body. Please correlate with point tenderness and if clinically warranted, further evaluation with a dedicated thoracic spine MRI can be obtained. 3. Stable positioning of left chest wall MediPort. A yellow critical result message was sent to PAULA WALTER, at 07:52 on 04/17/2022. Electronically signed by: LAUREN BULLARD MD Normal [facility] Laboratory - Chemistry and C hemistry - challengeon 04-16-2022 Base excess Calc (Bld) [Moles/Vol] 3.5 mmol/L above high threshold -2.0 - 3.0 [facility] DO Work Phone: Carboxyhemoglobin (BldA) [Mass fraction] 2.1 % Abnormal [facility] DO Work Phone: Comment on above: REF VALUESNONSMOKERS 0.5-1.5%SMOKERS 0.5-10.0% CO2 (Bld) [Partial pressure] 40 mm[Hg] 38 - 42 [facility] DO Work Phone: HCO3 (Bld) [Moles/Vol] 27.8 mmol/L above high threshold See Below [facility] DO Work Phone: Comment on above: Reference Range: 22. 0 - 26.0 Methemoglobin (BldA) [Mass fraction] 0.8 % 0.0 - 1.5 [facility] DO Work Phone: Oxygen (Bld) [Partial pressure] 80 mm[Hg] below low threshold 85 - 95 [facility] DO Work Phone: Oxyhemoglobin (BldA) [Mass fraction] 95.1 % See Below [facility] DO Work Phone: Comment on above: Reference Range: 94. 0 - 98.0 pH (Bld) 7.45 [pH] above high threshold See Below [facility] DO Work Phone: Comment on above: Reference Range: 7.3 8 - 7.42 Laboratory - Hematology and Cell countson 04-16-2022 Deoxyhemoglobin (BldA) [Mass fraction] 2.1 % 0.0 - 5.0 [facility] DO Work Phone: Hemoglobin (Bld) [Mass/Vol] 11.6 g/dL below low threshold See Below [facility] DO Work Phone: Comment on above: Reference Range: 12. 0 - 16.0 No Panel Informationon 04-16 Inhaled oxygen concentration 21 % [facility] DO Work Phone: R RADIAL [facility] DO Work Phone: Radiologyon 04-16-2022 XR Chest 2 Views Normal [facility] DO Work Phone: BASIC METABOLIC PANELon 03-19 Anion gap [Moles/Vol] 14 mmol/L Normal 10 - 20 [facility] Comment on above: Performed By: #### C MP #### [address] [address] Calcium [Mass/Vol] 10.1 mg/dL Normal 8.6 - 10.3 [facility] Comment on above: Performed By: #### C MP #### [address] [address] Chloride [Moles/Vol] 102 mmol/L Normal 98 - 107 [facility] Comment on above: Performed By: #### C MP #### [address] [address] Creatinine [Mass/Vol] 2.09 mg/dL High 0.50 - 1.05 [facility] Comment on above: Performed By: #### C MP #### [address] [address] GFR/1.73 sq M.predicted among non-blacks MDRD (S/P/Bld) [Vol rate/Area] 24 mL/min/{1.73_m2} Abnormal >90 [facility] Comment on above: Result Comment: CALC ULATIONS OF ESTIMATED GFR ARE PERFORMED USING THE 2020 CKD-EPI STUDY REFIT EQUATION WITHOUT THE RACE VARIABLE FOR THE IDMS-TRACEABLE CREATININE METHODS. https://jasn.asnjournals.org/content/early/ASN.671418 9160 Performed By: #### C MP #### [address] [address] Glucose [Mass/Vol] 234 mg/dL High 74 - 99 [facility] Comment on above: Performed By: #### C MP #### [address] [address] HCO3 (Bld) [Moles/Vol] 28 mmol/L Normal 21 - 32 [facility] Comment on above: Performed By: #### C MP #### [address] [address] Potassium [Moles/Vol] 4.6 mmol/L Normal 3.5 - 5.3 [facility] Comment on above: Performed By: #### C MP #### [address] [address] Sodium [Moles/Vol] 139 mmol/L Normal 136 - 145 [facility] Comment on above: Performed By: #### C MP #### [address] [address] Urea nitrogen [Mass/Vol] 45 mg/dL High 6 - 23 [facility] Comment on above: Performed By: #### C MP #### [address] [address] BNPon 04-13-2022 Natriuretic peptide B (Bld) [Mass/Vol] 1140 pg/mL High 0 - 99 [facility] Comment on above: Result Comment: . <1 00 pg/mL - Heart failure unlikely 100-299 pg/mL - Intermediate probability of acute heart . failure exacerbation. Correlate with clinical . context and patient history. >=300 pg/mL - Heart Failure likely. Correlate with clinical . context and patient history. BNP testing is performed using different testing methodology at [facility] than at other [place] [facility]. Direct result comparisons should only be made within the same method. Performed By: #### B NP2 #### [address] [address] Laboratory - Chemistry and C hemistry - challengeon 04-13-2022 Anion gap [Moles/Vol] 14 mmol/L 10 - 20 [facility] DO Work Phone: Calcium [Mass/Vol] 10.1 mg/dL 8.6 - 10.3 [facility] DO Work Phone: Chloride [Moles/Vol] 102 mmol/L 98 - 107 [facility] DO Work Phone: CO2 [Moles/Vol] 28 mmol/L 21 - 32 [facility] DO Work Phone: Creatinine [Mass/Vol] 2.09 mg/dL above high threshold See Below [facility] DO Work Phone: Comment on above: Reference Range: 0.5 0 - 1.05 Glucose [Mass/Vol] 234 mg/dL above high threshold 74 - 99 [facility] DO Work Phone: Natriuretic peptide B (Bld) [Mass/Vol] 1140 pg/mL above high threshold 0 - 99 [facility] DO Work Phone: Comment on above: . <100 pg/mL - Heart failure [id number] pg/mL - Intermediate probability of acute heart. failure exacerbation. Correlate with clinical. context and patient history. >=300 pg/mL - Heart Failure likely. Correlate with clinical. context and patient history.BNP testing is performed using different testing methodology at [facility] than at other [place] [facility]. Direct result comparisons should only be made within the same method. Potassium [Moles/Vol] 4.6 mmol/L 3.5 - 5.3 [facility] DO Work Phone: Sodium [Moles/Vol] 139 mmol/L 136 - 145 [facility] DO Work Phone: Urea nitrogen [Mass/Vol] 45 mg/dL above high threshold 6 - 23 [facility] DO Work Phone: Narrative Note - Outpatient- Heart Failureon 04-13-2022 Narrative Note - Outpatient-Heart Failure Narrative Note: Discipline/ClinicHeart Failure Description Val arrived via wheelchair to the Heart Failure Clinic for her first scheduled visit. States she is feeling pretty good right now. She stated that she has been pretty good the last few weeks. Denies increased shortness of breath, PND, or Orthopnea. Eating and sleeping without distress. Val stated that she wears 2L of oxygen currently since she was [facility] from the [facility] living. She was 97% on 2L when she arrived to the clinic and then she took it off for a little while and came up to 100% on RA. She is having test done next week for lung issues. A BMP and BNP was drawn and results called to Dr. Antoine. Medications reviewed. Plan is to add Hydralazine 25mg TID and come back in 4 weeks. Called in prescription to [facility] for 90 tabs with 11 refills. Reviewed signs and symptoms of increased heart failure and when to call for help. Vitals: BP: 144/83 P: 94 R: 20 and O2: 97% on 2L Weight: 271.6/123.2 Previous Weight: n/a Lung Sounds: Clear diminished Edema: +2 bilateral lower extremities JVD: Absent Labs: BMP and BNP Medications Administered: none Medication Titration: added Hydralazine 25mg TID Next Appointment Date: April @ 11am Note in EMR for Treating Physician: Dr. Antoine In-House Supervising Physician: Dr. Lopez Electronic Signatures: Macho Pierre (RN) (Signed 13-Apr-2022 12:25) Authored: Narrative Note - OP Last Updated: 13-Apr-2022 12:25 by Macho Pierre (RN) Normal [facility] No Panel Informationon 04-13 24 {mL/min/1.73m2} Abnormal >90 [facility] DO Work Phone: Comment on above: CALCULATIONS OF TE MATED GFR ARE PERFORMED USING THE 2020 CKD-EPI STUDY REFIT EQUATION WITHOUT THE RACE VARIABLE FOR THE IDMS-TRACEABLE CREATININE METHODS.https://jasn.asnjournals.org/content/early// N.4373997924 Consult (Pulmonary Medicine) on 04-09-2022 Consult (Pulmonary Medicine) Diagnoses/Problems Dyspnea on exertion (786.09) (R06.09) Hypoxemia (799.02) (R09.02) CHF (congestive heart failure) (428.0) (I50.9) Abnormal CXR (793.2) (R93.89) Orders Xray Chest 2 View PA + Lateral; Status:Hold For - Scheduling,Retrospective Authorization; Requested for:09Apr2022; Perform: [facility]; Due:08Jul2022; Last Updated By:Leticia Lopez; 04/09/2022 11:57:39 AM;Ordered; For:Dyspnea on exertion; Ordered By:Paula Walter; Radiologist to Determine Optimal Study : Y What are the patient's signs and symptoms? : SOB 6 Minute Walk Test; Status:Hold For - Scheduling,Retrospective Authorization; Requested for:09Apr2022; Perform:[facility] (Non-Interfaced); Due:08Jul2022; Last Updated By:Leticia Lopez; 04/09/2022 11:57:39 AM;Ordered; For:Dyspnea on exertion, Hypoxemia; Ordered By:Paula Walter; Complete PFT with ABG; Status:Hold For - Scheduling,Retrospective Authorization; Requested for:09Apr2022; Perform:[facility] (Non-Interfaced); Order Comments:ABG ON ROOM AIR; Due:08Jul2022; Last Updated By:Leticia Lopez; 04/09/2022 12:00:23 PM;Ordered; For:Dyspnea on exertion, Hypoxemia; Ordered By:Paula Walter; Provider Impressions Impressions: 1. Dyspnea on exertion. 2. Hypoxemia with activity. 3. In view of the lack of significant imaging of the chest it is also possible that the lung bases are obscured by some underlying fibrosis in the lungs. 4. Congestive heart failure by echocardiogram report. 5. May have a component of obstructive sleep apnea based on her history and exam. 1 Recommendations: 1. Complete pulmonary function testing. 2. PA and lateral chest x-ray and depending upon these results may consider a CT scan of the chest. 3. Room air arterial blood gas at rest 4. Simple pulmonary stress test on room air with oxygen titration as needed. 5. Overnight oxygen trending on room air. This note was transcribed using the [employer] system. There may be grammatical, punctuation, or verbiage errors that occur with voice recognition programs. 1 Amended By: Paula Walter; Apr 09 2022 1:12 PM ESTChief Complaint VAL ERICKSON is here for an initial evaluation. Reason for Visit: SOB. Appointment requested by: Dr. Yulia Antoine. History of Present IllnessThis is a 77-year-old female who was accompanied by her son Rd and I was asked to see her because of issues with shortness of breath since January of last year. Patient has been on oxygen at 2 L [id number] since then she lives alone at her home. She denies having any fever or cough. She admits to being treated for pneumonia as 29-year-old adult. She denies having any chest pains but admits to chest tightness. On the January admission it was felt that her chest x-ray showed that she had pneumonia and she was placed on antibiotics at that time and was started on the oxygen. She denies any history of any trauma to her chest. She is also been treated for renal failure secondary to her diabetes. She has had left knee replacement, appendectomy, tonsillectomy and adenoidectomy, cholecystectomy and total abdominal hysterectomy with bilateral salpingo-oophorectomy for noncancerous reasons. Her family history is positive for her mother and 1 sister dying with bone cancer. She has a father and brother who had CVAs. She has a second sister who is been treated for congestive heart failure. Patient admits to being a former smoker but that was when she was 29 years old and smoked for only about 6 months and less than half pack per day. She denies any alcohol usage. She is and she denies that her was a smoker. 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 She reports being exposed to some chemicals for about 15 years and had to wear a mask. She was born and raised in [place]. Additionally the patient has a history of some insomnia. Her son says that she does snore at nighttime. Review of Systems On review of systems her weight is decreased about 10 pounds over the past year. She generally does bring up some mucus in the morning. She has insulin-dependent diabetes mellitus. She has decreased visual acuity secondary to macular degeneration. She complains of pain in her back and hips. She does not know what type of arthritis that she has. She has summer and spring allergies. She has recently been treated for depression. She has also been started on gabapentin which she states has helped with her sleep onset. Active Problems CHF (congestive heart failure) (428.0) (I50.9) Shortness of breath (786.05) (R06.02) Surgical History History of Ankle surgery X2 History of Appendectomy History of Hysterectomy History of Knee replacement X2 History of Shoulder surgery History of Tonsillectomy History of Ureteroplasty History of Varicose vein ligation Family History Family history of malignant neoplasm (V16.9) (Z80.9) Famil (more content not included)... Normal CPM [employer] Tobacco Screening.on 023 Fall risk assessment b) One or more fall s in the last year [facility] DO Work Phone: Tobacco use status CPHS b) No [facility] DO Work Phone: Basophil percentageOrdered B y: Dr. Louise on 03-30-2022 Basophil percentage 3.4 mg/dL 2.5-4.9 [facility] Bilirubin [Mass/Vol] 0.30 mg/dL 0.20-1.00 [facility] Comment on above: For patients on eltr ombopag therapy, use of Dimension [place] TBIL is not recommended. Chloride [Moles/Vol] 103 mmol/L 98-107 [facility] Cholesterol [Mass/Vol] 73 mg/dL <200 [facility] Comment on above: <200 mg/dL Desirable 200-240 mg/dL Borderline >240 mg/dL High Risk Glucose [Mass/Vol] 90 mg/dL 74-106 [facility] Potassium [Moles/Vol] 4.2 mmol/L 3.5-5.1 [facility] Protein [Mass/Vol] 6.7 g/dL 6.4-8.2 [facility] Sodium [Moles/Vol] 139 mmol/L 136-145 [facility] Triglyceride [Mass/Vol] 58 mg/dL <199 [facility] Comment on above: The drugs N-Acetylcy steine and Metamizole may falsely depress this assay.Serum Triglycerides Reference Interval Normal <150 mg/dL Borderline high 150 - 199 mg/dL High 200 - 499 mg/dL Very High > or = 500 mg/dL WBC (Bld) [#/Vol] 7.3 10*3/uL 4.4-11.0 [facility] Blood erythrocytes count (nu mber/volume)Ordered By: Dr. Louise on 03-30-2022 RBC (Bld) [#/Vol] 3.55 10*6/uL 4.2-5.4 [facility] Blood hemoglobin measurement (mass/volume)Ordered By: Dr. Louise on 03-30-2022 Hemoglobin (Bld) [Mass/Vol] 10.6 g/dL 12.0-15.0 [facility] Blood platelet mean volumeOr dered By: Dr. Louise on 03-30-2022 Platelet mean volume (Bld) [Entitic vol] 10.4 fL 6.2-12.0 [facility] Determination of erythrocyte mean corpuscular volume (MCV)Ordered By: Dr. Louise on 03-30-2022 MCV (RBC) [Entitic vol] 96.9 fL 81-99 [facility] Hematocrit Auto (Bld) [Volum e fraction]Ordered By: Dr. Louise on 03-30-2022 Hematocrit (Bld) [Volume fraction] 34.4 % 37-47 [facility] Laboratory - Chemistry and C hemistry - challengeOrdered By: Dr. Louise on 03-30-2022 ALP [Catalytic activity/Vol] 57 U/L 45-117 [facility] ALT [Catalytic activity/Vol] 27 U/L 13-56 [facility] CO2 [Moles/Vol] 30.0 mmol/L 21.0-32.0 [facility] Globulin (S) [Mass/Vol] 3.5 g/dL 2.2-4.2 [facility] Urea nitrogen/Creatinine [Mass ratio] 22.4 mg/mg 10-20 [facility] Laboratory - Hematology and Cell countsOrdered By: Dr. Louise on 03-30-2022 Erythrocyte distribution width (RBC) [Entitic vol] 50.2 fL 35.1-43.9 [facility] Erythrocyte distribution width (RBC) [Ratio] 14.2 % 11.6-14.6 [facility] MCH (RBC) [Entitic mass] 29.9 pg 27.0-32.0 [facility] Auto (RBC) [Mass/Vol]Or dered By: Dr. Louise on 03-30-2022 MCHC (RBC) [Mass/Vol] 30.8 g/dL 32-36 [facility] No Panel InformationOrdered By: Dr. Louise on 03-30-2022 Urine Microalbumin/Creatini ne Ratio 142.3 mg/g CRE <30 [facility] Estimated GFR (MDRD) Amer 27 mL/min >60 [facility] Comment on above: GFR Calc Estimated GFR (MDRD) Non-Af Amer 22 mL/min >60 [facility] Comment on above: Non- GFR Calc Platelets bldOrdered By: Dr. Louise on 03-30-2022 Platelets (Bld) [#/Vol] 208 10*3/uL 150-450 [facility] Serum or plasma albumin jarrett urement (mass/volume)Ordered By: Dr. Louise on 03-30-2022 Albumin [Mass/Vol] 3.2 g/dL 3.2-5.0 [facility] Serum or plasma albumin/glob ulin mass ratioOrdered By: Dr. Louise on 03-30-2022 Albumin/Globulin [Mass ratio] 0.9 {ratio} 0.9-2.4 [facility] Serum or plasma calcium jarrett urement (mass/volume)Ordered By: Dr. Louise on 03-30-2022 Calcium [Mass/Vol] 9.4 mg/dL 8.5-10.1 [facility] Serum or plasma cholesterol in HDL measurement (mass/volume)Ordered By: Dr. Louise on 03-30-2022 Cholesterol in HDL [Mass/Vol] 45 mg/dL >40 [facility] Comment on above: The drugs N-Acetylcy steine and Metamizole may falsely depress this assay. Reference Range HDL <40 mg/dL Low HDL Cholesterol HDL >or= 60 mg/dL High HDL Cholesterol Serum or plasma cholesterol in VLDL measurement (mass/volume)Ordered By: Dr. Louise on 03-30-2022 Cholesterol in VLDL [Mass/Vol] 12 mg/dL 5-40 [facility] Serum or plasma creatinine m easurement (mass/volume)Ordered By: Dr. Louise on 03-30-2022 Creatinine [Mass/Vol] 2.28 mg/dL 0.55-1.02 [facility] Comment on above: The validity of the calculated GFR & GFRAA in patients over 70 years has not been determined. Clinical correlation is essential. Serum or plasma low density lipoprotein (LDL) cholesterol measurement (mass/volume)Ordered By: Dr. Louise on 03-30-2022 Cholesterol in LDL [Mass/Vol] 16 mg/dL 0-130 [facility] Serum or plasma urea nitroge n measurement (mass/volume)Ordered By: Dr. Louise on 03-30-2022 Urea nitrogen [Mass/Vol] 51 mg/dL 7-18 [facility] Thin prep Papanicolaou smear with manual screeningOrdered By: Dr. Louise on 03-30-2022 Thin prep Papanicolaou smear with manual screening 158.0 mg/L NO RANGE EST. [facility] Thin prep Papanicolaou smear with manual screening 16 U/L 15-37 [facility] Thin prep Papanicolaou smear with manual screening 6 5-15 [facility] Urine creatinine measurement (mass/volume)Ordered By: Dr. Louise on 03-30-2022 Creatinine (U) [Mass/Vol] 111.00 mg/dL NO RANGE EST. [facility] Urine protein measurement (m ass/volume)Ordered By: Dr. Louise on 03-30-2022 Protein (U) [Mass/Vol] 34.7 mg/dL 0.0-11.8 [facility] Urine protein/creatinine mas s ratioOrdered By: Dr. Louise on 03-30-2022 Protein/Creatinine (U) [Mass ratio] 313 mg/g CRE 0-200 [facility] Whole blood hemoglobin A1c/t otal hemoglobin ratio (mass fraction)Ordered By: Dr. Louise on 03-30-2022 HbA1c (Bld) [Mass fraction] 7.7 % 3.8-5.6 [facility] Comment on above: Normal < 5.7 % Predi abetic 5.7 - 6.4 % Diabetic >or= 6.5 % Please note range changes. Office Visit (Cardiology)on 03-28-2022 Follow-up visit Chief Complaint ACC/AHA stage C HFrEF History of Present [id number] female with a medical history of diabetes, neuropathy, hypertension, hyperlipidemia who was first seen at [facility] January 29, 2022 with shortness of breath that at that time was attributed to pneumonia. Creatinine was elevated between 1.9-2.2. Cardiac issues include: ACC/AHA stage C HFrEF -Echocardiogram dated January 29, 2022 showed reduced EF to 30-35%. -Not on any GDMT at present Currently the patient notes that her shortness of breath is largely at baseline. Was discharged with home oxygen; and is questioning whether she needs it or not. Denies any orthopnea/PND. Does have some lower extremity edema that has been responsive to Lasix and is improving. Denies any clear exertional angina. Notably has chronic kidney disease with baseline creatinine 1.9-2.2. Review of Systems Constitutional: Denies any fever or chills Eyes: Denies any eye pain or blurry vision ENT: Denies any ear pain or hearing loss Cardiovascular: The heart rate is not slow, the heart rate is not fast Respiratory: Denies any asthma/wheezing Gastrointestinal: Denies any nataliia colored stools or fatty food intolerance Genitourinary: Denies any blood in the urine or pelvic pain Musculoskeletal: Denies any swelling in the joints or difficulty walking Skin: Denies any skin lumps or skin lesions Neurological: Denies any dizziness/tingling Physical Exam General: AANDOx3; obese HEENT: NC/AT; EOMI; PERRLA, external ear is normal Neck: supple; no JVD Chest: CTAB; no wheezing CVS: S1S2 normal, no murmurs Abdomen: Soft, NT/ND, no organomegaly Extremities: no clubbing/cyanosis/2+ edema bilateral lower extremities Neuro: Grossly intact Results/Data Glucose [id number] 11:35AMNon Ambulatory, Provider Ordering Provider: JAIRON LOPEZ [id number] Test NameResultFlagReference Glucose-[id number] mg/dLH74 - 99 RN/ NOTIFIED Glucose [id number] 07:32AMNon Ambulatory, Provider Ordering Provider: JAIRON LOPEZ [id number] Test NameResultFlagReference Glucose-[id number] mg/dLH74 - 99 RN/MD NOTIFIED [id number] 05:56AMNon Ambulatory, Provider Test NameResultFlagReference Echocardiogram(Report) [place] [address] [id number], TRANSTHORACIC ECHOCARDIOGRAM REPORT Patient Name: VAL ERICKSON Reading Physician: [id number] Chris Antoine MD Study Date: 01/29/2022 Referring Physician: [id number] Jairon Lopez MD MRN/PID: [id number] PCP: Accession/Order#: [id number] Department Location: [address] Date of : 1945 Fellow: Gender: F Nurse: Admit Date: 01/26/2022 Economics Analyst: SHEN Duval RVT Admission Status: Inpatient - Additional Staff: Routine Height: 160.02 cm CC Report to: Weight: 123.38 kg Study Type: Echocardiogram BSA: 2.20 m2 Blood Pressure: 132 /74 mmHg Diagnosis/ICD: R06.02-Shortness of breath Indication: Dyspnea, Congestive Heart Failure Procedure/CPT: Echo Complete w Full [id number] Patient History: Pertinent History: No previous echo. Study Detail: The following Echo studies were performed: 2D, M-Mode, Doppler and color flow. Technically challenging study due to body habitus. Definity used as a contrast agent for endocardial border definition. Total contrast used for this procedure was 1 mL via IV push. A bubble study was not performed. The patient was awake. PHYSICIAN INTERPRETATION: Left Ventricle: Left ventricular systolic function is severely decreased, with an estimated ejection fraction of 30-35%. There is global hypokinesis of the left ventricle with minor regional variations. The left ventricular cavity size is normal. Left ventricular diastolic filling was indeterminate. Left Atrium: The left atrium is normal in size. Right Ventricle: The right ventricle is normal in size. There is normal right ventricular global systolic function. Right Atrium: The right atrium is normal in size. Aortic Valve: The aortic valve is probably trileaflet. There is no evidence of aortic valve regurgitation. The peak instantaneous gradient of the aortic valve is 6.7 mmHg. The mean gradient of the aortic valve is 4.0 mmHg. Mitral Valve: The mitral valve is normal in structure. There is moderate mitral valve regurgitation. Tricuspid Valve: The tricuspid valve was not well visualized. No evidence of tricuspid regurgitation. Pulmonic Valve: The pulmonic valve is not well visualized. There is no indication of pulmonic valve regurgitation. Pericardium: There is no pericardial effusion noted. Aorta: The aortic root was not well visualized. CONCLUSIONS: 1. Left ventricular systolic function is severely decreased with a 30-35% estimated ejection fraction. 2. There is global hypokinesis of the left ventricle with minor regional variations. 3. Moderate mitral valve regurgitation. 4. No other echocardiograms available for comparison. QUANTITATIVE DATA SUMMARY: 2D MEASUREMENTS: Normal Ranges: Ao Root d: 2.60 cm (2.0-3.7cm) (more content not included)... Normal CPM [employer] Tobacco Screening.on 023 Fall risk assessment a) No falls within the last year -[employer] [facility] redealize Work Phone: Tobacco use status CPHS b) No G5-[employer] [facility] redealize Work Phone: Basophil percentageOrdered B y: Dr. Louise on 03-02-2022 Basophil percentage 3.8 mg/dL 2.5-4.9 [facility] Chloride [Moles/Vol] 102 mmol/L 98-107 [facility] Glucose [Mass/Vol] 178 mg/dL 74-106 [facility] Comment on above: Fasting Glucose resu lt greater than or equal to 126 mg/dL suggests DIABETES MELLITUS per A.D.A. criteria. Potassium [Moles/Vol] 4.3 mmol/L 3.5-5.1 [facility] Sodium [Moles/Vol] 138 mmol/L 136-145 [facility] Blood hemoglobin measurement (mass/volume)Ordered By: Dr. Louise on 03-02-2022 Hemoglobin (Bld) [Mass/Vol] 10.1 g/dL 12.0-15.0 [facility] Hematocrit Auto (Bld) [Volum e fraction]Ordered By: Dr. Louise on 03-02-2022 Hematocrit (Bld) [Volume fraction] 32.6 % 37-47 [facility] Laboratory - Chemistry and C hemistry - challengeOrdered By: Dr. Louise on 03-02-2022 CO2 [Moles/Vol] 32.0 mmol/L 21.0-32.0 [facility] Urea nitrogen/Creatinine [Mass ratio] 20.8 mg/mg 10-20 [facility] No Panel InformationOrdered By: Dr. Louise on 03-02-2022 Estimated Creatinine Clearance Calc 16.25 ml/min [facility] Estimated GFR (MDRD) Amer 26 mL/min >60 [facility] Comment on above: GFR Calc Estimated GFR (MDRD) Non-Af Amer 21 mL/min >60 [facility] Comment on above: Non- GFR Calc Serum or plasma albumin jarrett urement (mass/volume)Ordered By: Dr. Louise on 03-02-2022 Albumin [Mass/Vol] 3.4 g/dL 3.2-5.0 [facility] Serum or plasma calcium jarrett urement (mass/volume)Ordered By: Dr. Louise on 03-02-2022 Calcium [Mass/Vol] 9.6 mg/dL 8.5-10.1 [facility] Serum or plasma creatinine m easurement (mass/volume)Ordered By: Dr. Louise on 03-02-2022 Creatinine [Mass/Vol] 2.36 mg/dL 0.55-1.02 [facility] Comment on above: The validity of the calculated GFR & GFRAA in patients over 70 years has not been determined. Clinical correlation is essential. Serum or plasma urea nitroge n measurement (mass/volume)Ordered By: Dr. Louise on 03-02-2022 Urea nitrogen [Mass/Vol] 49 mg/dL - [facility] Basophil percentageOrdered B y: Dr. Louise on 02-02-2022 Basophil percentage 4.3 mg/dL 2.5-4.9 [facility] Chloride [Moles/Vol] 96 mmol/L 98-107 [facility] Glucose [Mass/Vol] 104 mg/dL 74-106 [facility] Comment on above: Fasting Glucose resu lt from 100 to 125 mg/dL suggests IMPAIRED HOMEOSTASIS per A.D.A. criteria. Potassium [Moles/Vol] 4.4 mmol/L 3.5-5.1 [facility] Sodium [Moles/Vol] 137 mmol/L 136-145 [facility] Blood hemoglobin measurement (mass/volume)Ordered By: Dr. Louise on 02-02-2022 Hemoglobin (Bld) [Mass/Vol] 9.1 g/dL 12.0-15.0 [facility] Hematocrit Auto (Bld) [Volum e fraction]Ordered By: Dr. Louise on 02-02-2022 Hematocrit (Bld) [Volume fraction] 29.9 % 37-47 [facility] Iron measurement (mass/mass) Ordered By: Dr. Louise on 02-02-2022 Iron (Unsp spec) [Mass/Mass] 71 ug/dL 50-170 [facility] Laboratory - Chemistry and C hemistry - challengeOrdered By: Dr. Louise on 02-02-2022 CO2 [Moles/Vol] 36.0 mmol/L 21.0-32.0 [facility] Urea nitrogen/Creatinine [Mass ratio] 24.9 mg/mg 10-20 [facility] No Panel InformationOrdered By: Dr. oLuise on 02-02-2022 Estimated GFR (MDRD) Amer 30 mL/min >60 [facility] Comment on above: GFR Calc Estimated GFR (MDRD) Non-Af Amer 25 mL/min >60 [facility] Comment on above: Non- GFR Calc Total Iron Binding Capacity 360 ug/dL 250-450 [facility] Serum or plasma albumin jarrett urement (mass/volume)Ordered By: Dr. Louise on 02-02-2022 Albumin [Mass/Vol] 3.2 g/dL 3.2-5.0 [facility] Serum or plasma calcium jarrett urement (mass/volume)Ordered By: Dr. Louise on 02-02-2022 Calcium [Mass/Vol] 10.2 mg/dL 8.5-10.1 [facility] Serum or plasma creatinine m easurement (mass/volume)Ordered By: Dr. Louise on 02-02-2022 Creatinine [Mass/Vol] 2.05 mg/dL 0.55-1.02 [facility] Comment on above: The validity of the calculated GFR & GFRAA in patients over 70 years has not been determined. Clinical correlation is essential. Serum or plasma ferritin bubba surement (mass/volume)Ordered By: Dr. Louise on 02-02-2022 Ferritin [Mass/Vol] 44 ng/mL 8-252 [facility] Serum or plasma iron saturat ion measurement (mass fraction)Ordered By: Dr. Louise on 02-02-2022 Iron saturation [Mass fraction] 19.7 % 15.0-55.0 [facility] Serum or plasma urea nitroge n measurement (mass/volume)Ordered By: Dr. Louise on 02-02-2022 Urea nitrogen [Mass/Vol] 51 mg/dL 10-02 [facility] Clinical Event Note-ED Post Discharge Result Follow Up: Atteon 01-30-2022 Clinical Event Note-ED Post Discharge Result Follow Up: Atte Clinical Event: Clinical Event Note: TopicED Post Discharge Result Follow Up: Attempt #1, #Complete: Urine: E. coli Details Facility Name: [facility] Contact: I reviewed the results of a positive urine culture that was collected from the patient in the emergency room. The patient was discharged back their long-term care facility (indicated above). The Culture Callback Team will turn over care to attending providers at the facility. No further follow up is necessary. If there are any other questions for the ED Post-Discharge Culture Follow Up Team, please contact [phone]. . Diana Ryan PharmD, [facility] PGY1 Building Service Worker [facility] Electronic Signatures: Diana Ryan ([facility]) (Signed 30-Jan-2022 14:58) Authored: Clinical Event Note Breanne Mark (PharmD) (Signed 31-Jan-2022 08:09) Co-Signer: Clinical Event Note Last Updated: 31-Jan-2022 08:09 by Breanne Mark (PharmD) Normal [facility] BASIC METABOLIC PANELon 01-16 Anion gap [Moles/Vol] 9 mmol/L Low 10 - 20 [facility] Comment on above: Performed By: #### C MP #### [address] [address] Calcium [Mass/Vol] 9.7 mg/dL Normal 8.6 - 10.3 [facility] Comment on above: Performed By: #### C MP #### [address] [address] Chloride [Moles/Vol] 94 mmol/L Low 98 - 107 [facility] Comment on above: Performed By: #### C MP #### [address] [address] Creatinine [Mass/Vol] 2.21 mg/dL High 0.50 - 1.05 [facility] Comment on above: Performed By: #### C MP #### [address] [address] GFR/1.73 sq M.predicted among non-blacks MDRD (S/P/Bld) [Vol rate/Area] 22 mL/min/{1.73_m2} Abnormal >90 [facility] Comment on above: Result Comment: CALC ULATIONS OF ESTIMATED GFR ARE PERFORMED USING THE 2020 CKD-EPI STUDY REFIT EQUATION WITHOUT THE RACE VARIABLE FOR THE IDMS-TRACEABLE CREATININE METHODS. https://jasn.asnjournals.org/content/early//ASN.993925 6339 Performed By: #### C MP #### [address] [address] Glucose [Mass/Vol] 154 mg/dL High 74 - 99 [facility] Comment on above: Performed By: #### C MP #### [address] [address] HCO3 (Bld) [Moles/Vol] 35 mmol/L High 21 - 32 [facility] Comment on above: Performed By: #### C MP #### [address] [address] Potassium [Moles/Vol] 3.9 mmol/L Normal 3.5 - 5.3 [facility] Comment on above: Performed By: #### C MP #### [address] [address] Sodium [Moles/Vol] 134 mmol/L Low 136 - 145 [facility] Comment on above: Performed By: #### C MP #### [address] [address] Urea nitrogen [Mass/Vol] 56 mg/dL High 6 - 23 [facility] Comment on above: Performed By: #### C MP #### [address] [address] CBCon 01-29-2022 Erythrocyte distribution width (RBC) [Ratio] 14.0 % Normal 11.5 - 14.5 [facility] Comment on above: Performed By: #### C BC #### [address] [address] Hematocrit (Bld) [Volume fraction] 27.6 % Low 36.0 - 46.0 [facility] Comment on above: Performed By: #### C BC #### [address] [address] Hemoglobin (Bld) [Mass/Vol] 8.7 g/dL Low 12.0 - 16.0 [facility] Comment on above: Performed By: #### C BC #### [address] [address] MCHC (RBC) [Mass/Vol] 31.5 g/dL Low 32.0 - 36.0 [facility] Comment on above: Performed By: #### C BC #### [address] [address] MCV (RBC) [Entitic vol] 98 fL Normal 80 - 100 [facility] Comment on above: Performed By: #### C BC #### [address] [address] Platelets (Bld) [#/Vol] 220 10*3/uL Normal 150 - 450 [facility] Comment on above: Performed By: #### C BC #### [address] [address] RBC 2.81 x10E12/L Low 4.00 - 5.20 [facility] Comment on above: Performed By: #### C BC #### [address] [address] WBC (Bld) [#/Vol] 6.3 10*3/uL Normal 4.4 - 11.3 [facility] Comment on above: Performed By: #### C BC #### [place] [address] CORONAVIRUS 2019 BY PCRon SARS-CoV-2 (COVID-19) RNA ALY+probe Ql (Unsp spec) Not detected Normal Not Detected [facility] Comment on above: Result Comment: . This test has received FDA Emergency Use Authorization (EUA) and has been verified by [facility]. This test is only authorized for the duration of time that circumstances exist to justify the authorization of the emergency use of in vitro diagnostic tests for the detection of SARS-CoV-2 virus and/or diagnosis of COVID-19 infection under section 564(b)(1) of the Act, 21 U.S.C. 360bbb-3(b)(1), unless the authorization is terminated or revoked sooner. [facility] is certified under CLIA-88 as qualified to perform high complexity testing. Testing is performed in the [facility] laboratory located at [address] [place] [address]. SARS-CoV-2/Flu/RSV Multiplex Test: Fact sheet for providers: https://www.fda.gov/media/145791/download Fact sheet for patients: https://www.fda.gov/media/946721/download Performed By: #### C MP #### [place] [address] Lab Specimen Source Nasal, Nasopharyngeal Normal [facility] Comment on above: Performed By: #### C MP #### [place] [address] Covid 19 Resultson SARS-CoV-2 (COVID-19) RNA ALY+probe Ql (Unsp spec) NEGATIVE COVID-19 Test Coronaviruses are common world-wide and are the cause of many common colds. SARS-COV2 is a new coronavirus that began circulating worldwide in 2019 so we are calling it COVID-19. It has been estimated that four out of five patients with COVID-19 will recover at home without the need for medical attention. Symptoms of COVID-19 may include cough, fever, shortness of breath, loss of taste or smell and other flu-like symptoms including chills, sore muscles, sore throat, and headache. Severe illness is more common in older people and people with other health problems such as high blood pressure, obesity, and immune system problems. If the test is positive, you have COVID-19. You will be contacted by the ordering physicians office and instructed to remain on home isolation, in accordance with CDC guidelines. You may also be contacted by the [facility] to see if any of your close contacts may have been exposed to the virus and need to quarantine. If the test is negative, you likely do not have COVID-19 at this time, but you still may have a different illness that can spread to other people (like Influenza, or the Flu) and could still be at risk for getting COVID-19. We recommend that you stay away from other people to limit the spread of illness until your symptoms are improving and you are fever-free for 24 hours without the use of fever lowering medications such as acetaminophen or ibuprofen. No test is 100% accurate so if you are still concerned you may have COVID-19, talk to your doctor about the need to continue to stay away from others. Medicines Unless your provider told you not to use the following: Acetaminophen (Tylenol and others) is generally safe. Anti-inflammatory medications, such as Ibuprofen (Advil or Motrin) or Naproxen (Aleve) can also be used. Yatf-ghf-arfhcuc cough and cold medicines can be used according to the instructions on the package. Some glbt-vip-dxcbznt medicines also contain acetaminophen. Make sure you are not taking more than your recommended dose. For those not hospitalized, there is no specific treatment available for this illness. Antibiotics do not treat Coronaviruses. Follow-Up Follow up with your doctor by scheduling a virtual visit or consider follow-up at one of our urgent care fever clinics. If you are having difficulty breathing, or are very weak and having difficulty standing, this is a medical emergency. Call 911 or have someone take you to the nearest emergency room immediately. If possible, wear a facemask. Additional guidance from the CDC for patients who tested POSITIVE for COVID-19 How to isolate: Isolate yourself in a specific room at home and limit your contact with others. Use a separate bathroom from other members of the household, when possible. Leave home only to get essential medical care. Do not go to work, school or public areas. Avoid using public transportation, ride-sharing, or taxis. Restrict contact with pets and other animals. If you must care for your pet or be around animals while you are sick, wash your hands before and after your interaction and wear a facemask. Make sure that shared spaces in the home have good airflow, such as by an air conditioner or an opened window, weather permitting. Personal Hygiene Procedures: Wear a face mask when in the same room as other people or pets. If a face mask interferes with your breathing, others should wear a mask when sharing space with you. Frequent hand-washing: wash your hands with soap and water for at least 20 seconds. If soap and water are not available, use alcohol-based hand hospital education coordinator. Avoid touching your eyes, nose, and mouth with unwashed hands. Household Hygiene Procedures: Avoid sharing personal household items such as dishes, glassware, cups, eating utensils, towels or bedding with other people or pets in your home. After use, these items should be washed with soap and hot water. Disinfect all high-touch surfaces every day with antibacterial cleaning solutions such as Lysol wipes, bleach, cleansers, etc. High-touch surfaces include tabletops, doorknobs, bathroom fixtures, toilets, phones, keyboards, tablets and bedside tables. Immediately clean any surfaces that may have blood, poop or body fluids on them, using antibacterial cleaning solutions such as Lysol wipes, bleach, cleansers, etc. If clothing or bedding come into contact with blood, poop or body fluids, they should be washed immediately. Follow the directions on the laundry detergent and clothing labels but hot water is recommended when possible. Stopping home isolation precautions: If possible, consult your doctor before stopping home isolation precautions. According to the CDC, you can discontinue home isolation precautions when you have met both of these criteria: Your fever and respiratory symptoms have been gone for 24 lili (more content not included)... Normal [facility] Daily Progress Note-Nephrolo delaney 01-29-2022 Daily Progress Note-Nephrology Service: Nephrology Subjective Data: VAL ERICKSON is a 76 year old Female who is Hospital Day # 4. Patient seen and examined this morning. Is up in the chair at the bedside Is states that she is feeling somewhat better To have echocardiogram completed this morning Swelling in her lower legs has improved, she states that this is her baseline. Objective Data: Objective Information: T PRBPMAPSpO2 [id number]/7496% Date/Time01/29 7: 7: 7: 7: 7:34 Range(36.2C - 36.5C ) (77 - 110 ) (14 - 20 ) (95 - 132 )/ (58 - 74 ) (96% - 99% ) Pain reported at 01/29 2:00: 0 = None ---- Intake and Output ----- Mn/Dy/Year TimeIntakeOutputNet Jan 29, 2022 6:00 [id number] Jan 28, 2022 10:00 [id number] Jan 28, 2022 2:00 [id number] The Intake and Output Totals for the last 24 hours are: IntakeOutputNet [id number] Physical Exam by System: Constitutional: Well developed, awake/alert/oriented x3, no acute distress, cooperative Eyes: EOMI, clear sclera ENMT: Mucous membranes moist Head/Neck: Normocephalic, atraumatic Respiratory/Thorax: Respirations even and unlabored at rest, clear to auscultation upper lobes with crackles in the bases, diminished throughout, on oxygen per nasal cannula Cardiovascular: S1, S2, rate and rhythm Gastrointestinal: Soft, nontender, nondistended, + BS, obese Musculoskeletal: Moves extremities in bed Extremities: Mild edema of the lower extremities below the knees, improving, bilateral Geovanni wraps on Neurological: Awake, alert, oriented x3 Psychological: Appropriate mood and behavior Skin: Warm and dry Medication: Medications: Continuous Medications -------- No continuous medications are active Scheduled Medications -------- 1. Albuterol 2.5 mg - Ipratropium 0.5 mg/ 3 mL Neb Soln: 3 mL Inhalation 3 Times a Day 2. Atorvastatin: 20 mg Oral At Bedtime 3. Azithromycin: 500 mg Oral Every 24 Hours 4. Calcitriol: 0.5 microgram(s) Oral Daily 5. cefTRIAXone 2 gram/Dextrose 5% IVPB Premixed Soln 50 mL: 50 mL IntraVenous Piggyback Every 24 Hours 6. Docusate: 100 mg Oral 2 Times a Day 7. Gabapentin: 300 mg Oral 2 Times a Day 8. Heparin Flush 100 unit/ mL Injectable: 5 mL IntraVenous Flush Once 9. Heparin SubCutaneous: 5000 unit(s) SubCutaneous Every 8 Hours 10. Insulin Glargine (Lantus) Injectable: 40 unit(s) SubCutaneous At Bedtime 11. Insulin Lispro Moderate Corrective Scale: unit(s) SubCutaneous 3 Times a Day Before Meals 12. Sennosides: 1 tablet(s) Oral At Bedtime PRN Medications -------- 1. Acetaminophen: 650 mg Oral Every 4 Hours 2. Cyclobenzaprine: 5 mg Oral 3 Times a Day 3. Dextrose 50% in Water Injectable: 25 gram(s) IntraVenous Push Every 15 Minutes 4. Glucagon Injectable: 1 mg IntraMuscular Every 15 Minutes 5. Magnesium Hydroxide -Al Hydrox -Simethicone Oral Liquid: 30 mL Oral Every 6 Hours 6. Magnesium Hydroxide Oral Liquid CONCENTRATE: 10 mL Oral Every 24 Hours 7. Melatonin: 10 mg Oral Daily 1800 8. Ondansetron Injectable: 4 mg IntraVenous Push Every 4 Hours 9. oxyCODONE Immediate Release: 5 mg Oral Every 4 Hours 10. Sodium Chloride 0.9% Injectable Flush PRN: 10 mL IntraVenous Flush According to Flush Policy Currently Suspended Medications -------- 1. Venlafaxine: 37.5 mg Oral Daily Recent Lab Results: Results: CBC: 01/29/2022 04:59 \ Hgb / \ 8.7 L / WBC Plt 6.3 220 / Hct \ / 27.6 L \ RBC: 2.81 L MCV: 98 BMP: 01/29/2022 04:59 NA+ Cl- BUN / 134 L 94 L 56 H / -------- Glucose --- 154 H K+ HCO3- Creat \ 3.9 35 H 2.21 H \ Calcium : 9.7 Anion Gap : 9 L Assessment and Plan: Comorbidities: ComorbidityOther Code Status: Code StatusFull Code Assessment: Chronic kidney disease stage IV with baseline creatinine from 1.8-2.0 over the last year Hyponatremia which for started in December with a sodium level of 123 at time of discharge from [place] was 132 SIADH Shortness of breath Possible pneumonia Hypertension DiabetesWith last hemoglobin A1c 7.3 Chronic pain Anemia of chronic disease on Epogen injections monthly Plan Hyponatremia/SIADH Sodium has improved to 134 Will need to continue fluid restriction She does have a component of SIADH with a urine sodium of 49 and creatinine of 418 Will need daily weights Fluid volume overload Edema has improved Geovanni wraps in place Chronic kidney disease stage IV Slight increase in creatinine to 2.21 with a bicarb of 35 Had been receiving Lasix 20 mg IV twice a day Is on Furosemide At home at 20 mg daily-can continue Also states that she is on Aleve at home-this needs to be discontinued secondary to her chronic kidney disease stage IV, was not (more content not included)... Normal [facility] Discharge [id number] 01-29- 022 Discharge Profile2 Discharge Orders: Anticipated Discharge Date: Anticipated Discharge [id number] Anticipated Discharge Time10:32 DNAR: Code Status at Discharge: Full Code Activity: activity as tolerated. May shower. May drive. Diet: Dietdiabetic/carbohydrat e counted Diabetic/Carbohydrate [id number]/Carb meal, 45gram/Carb snack (1999-s) Fluid [id number] mL Oxygen: Administer oxygen at 2 L/min via to maintain SpO2 % of 90%. Additional Orders: Additional Instructions Pioglitazone held at discharge it can worsen CHF Fluid restriction of 1500 mL Can resume Lasix p.o. 20 mg daily from tomorrow Hospital Course (Home Care/Gold Form): Hospital Course: Hospital Course: include significant abnormal lab values 76-year-old female with past medical history of diabetes, neuropathy, hypertension, CKD stage III, hyperlipidemia, anxiety/depression who presented to the ER with shortness of breath. She was admitted with a working diagnosis of acute CHF, possible pneumonia, hyponatremia, elevated creatinine and anemia.On presentation to the ER temperature was 97.9, heart rate 1 1, respiratory rate 18, blood pressure 141/84 and she was saturating 91%. Blood work showed a normal white cell count, hemoglobin of 10, normal platelet count, metabolic panel showed hyponatremia with a sodium of 128 creatinine was elevated 1.90, troponin was 42. UA was unremarkable. X-ray chest showed pulmonary congestion/interstitial infiltrates. Patient was given ceftriaxone and fluids in the ER. She was started on Lasix 40 mg IV twice daily for diuresis, nephrology was consulted, pioglitazone was discontinued as it can worsen CHF, treated with ceftriaxone and azithromycin to cover for pneumonia. Procalcitonin level was sent which is still pending, her urine culture did grow gram-negative bacilli but she has been on ceftriaxone for 4 days now so should be adequate to treat her UTI. She [facility]ithromycin at [facility] living. She did develop some acute kidney injury due to diuresis so her Lasix will be held today. Can resume her 20 mg p.o. Lasix daily from tomorrow. Her sodium improved with fluid restriction, she will be put on a fluid restriction of 1500 mL. I will also stop venlafaxine at discharge. Gold Form Orders: Care Recommendation: I recommend that INPATIENT care is required at:Skilled Estimated StayConvalescent stay < 30 days PrognosisGood Rehab Potential/FunctionImprov e Provider CertificationATTENDING: I certify that inpatient care is required at the level recommended above. To the best of my knowledge, all information provided about the individual is a true and accurate reflection of the individual's condition. Attending ProviderJairon Lopez Attending Provider [id number] Therapy Orders: Occupational Therapy Orders3-5 times/week Physical Therapy Orders3-5 times/week Provider Follow Up: Physician To Follow at Skilled/RehabAttending Physician at Skilled/Rehab Provider FINAL REVIEW of Orders: Final Review: Final Review of Medication Reconciliation and Orders Completedby Physician Reviewing Tu Lopez MD at 29-Jan-2022 12:17:57 Appointments: Follow-Up Appointment 01: Physician/Dept/[facility]Facility Physician Reason for Referralpost hospital stay CHF Call to Schedule in1 week Follow-Up Appointment 02: Physician/Dept/Leeann phrology-pt has followed with Dr. Parks in past Reason for Referralpost hospital stay Call to Schedule in1 week Follow-Up Appointment 03: Physician/Dept/Quique rdiology Reason for Referralpost hospital stay CHF Call to Schedule in2 weeks Other Clinician Instructions: Other Instructions: Nursing InstructionsCONTINUE GEOVANNI WRAPS TO LOWER LEGS REMOVE FOR HYGIENE DAILY WEIGHTS Electronic Signatures: Tamra Lemos (RN) (Signed 29-Jan-2022 12:10) Authored: Discharge Orders, Appointments, Other Clinician Instructions Jairon Lopez) (Signed 29-Jan-2022 12:17) Authored: Discharge Orders, Hospital Course (Home Care/Gold Form), Gold Form Orders, Provider FINAL REVIEW of Orders, Appointments, 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 Last Updated: 29-Jan-2022 12:17 by aJiron Lopez) [facility] Echocardiogramon 01-29-2022 [place] [address] [phone], TRANSTHORACIC ECHOCARDIOGRAM REPORT Patient Name: VAL Dwyer Physician: [id number] Chris Antoine MD Study Date: 01/29/2022 Referring Physician: [id number] Jairon Lopez MD MRN/PID: [id number] PCP: Accession/Order#: [id number] Department Location: [address] Date of : 1945 Fellow: Gender: F Nurse: Admit Date: 01/26/2022 Economics Analyst: Laura Hicks RVT, SHEN Admission Status: Inpatient - Additional Staff: Routine Height: 160.02 cm CC Report to: Weight: 123.38 kg Study Type: Echocardiogram BSA: 2.20 m2 Blood Pressure: 132 /74 mmHg Diagnosis/ICD: R06.02-Shortness of breath Indication: Dyspnea, Congestive Heart Failure Procedure/CPT: Echo Complete w Full [id number] Patient History: Pertinent History: No previous echo. Study Detail: The following Echo studies were performed: 2D, M-Mode, Doppler and color flow. Technically challenging study due to body habitus. Definity used as a contrast agent for endocardial border definition. Total contrast used for this procedure was 1 mL via IV push. A bubble study was not performed. The patient was awake. PHYSICIAN INTERPRETATION: Left Ventricle: Left ventricular systolic function is severely decreased, with an estimated ejection fraction of 30-35%. There is global hypokinesis of the left ventricle with minor regional variations. The left ventricular cavity size is normal. Left ventricular diastolic filling was indeterminate. Left Atrium: The left atrium is normal in size. Right Ventricle: The right ventricle is normal in size. There is normal right ventricular global systolic function. Right Atrium: The right atrium is normal in size. Aortic Valve: The aortic valve is probably trileaflet. There is no evidence of aortic valve regurgitation. The peak instantaneous gradient of the aortic valve is 6.7 mmHg. The mean gradient of the aortic valve is 4.0 mmHg. Mitral Valve: The mitral valve is normal in structure. There is moderate mitral valve regurgitation. Tricuspid Valve: The tricuspid valve was not well visualized. No evidence of tricuspid regurgitation. Pulmonic Valve: The pulmonic valve is not well visualized. There is no indication of pulmonic valve regurgitation. Pericardium: There is no pericardial effusion noted. Aorta: The aortic root was not well visualized. CONCLUSIONS: 1. Left ventricular systolic function is severely decreased with a 30-35% estimated ejection fraction. 2. There is global hypokinesis of the left ventricle with minor regional variations. 3. Moderate mitral valve regurgitation. 4. No other echocardiograms available for comparison. QUANTITATIVE DATA SUMMARY: 2D MEASUREMENTS: Normal Ranges: Ao Root d: 2.60 cm (2.0-3.7cm) LAs: 4.10 cm (2.7-4.0cm) IVSd: 1.10 cm (0.6-1.1cm) LVPWd: 1.09 cm (0.6-1.1cm) LVIDd: 6.18 cm (3.9-5.9cm) LVIDs: 5.07 cm LV Mass Index: 146.2 g/m2 LV % FS 18.0 % LA VOLUME: Normal Ranges: LA Vol A4C: 85.9 ml (22+/-6mL/m2) LA Vol A2C: 78.7 ml LA Vol BP: 94.8 ml LA Vol Index A4C: 39.0ml/m2 LA Vol Index A2C: 35.7 ml/m2 LA Vol Index BP: 43.0 ml/m2 LA Area A4C: 27.7 cm2 LA Area A2C: 23.0 cm2 LA [place] A4C: 7.6 cm LA [place] A2C: 5.7 cm LA Volume Index: 34.1 ml/m2 LA Vol A4C: 87.1 ml LA Vol A2C: 75.1 ml M-MODE MEASUREMENTS: Normal Ranges: AoV Exc: 1.90 cm (1.5-2.5cm) AORTA MEASUREMENTS: Normal Ranges: AoV Exc: 1.90 cm (1.5-2.5cm) LV SYSTOLIC FUNCTION BY 2D PLANIMETRY (MOD): Normal Ranges: EF-A4C View: 35.0 % (>=55%) EF-A2C View: 23.0 % EF-Biplane: 30.8 % LV DIASTOLIC FUNCTION: Normal Ranges: MV Peak E: 1.39 m/s (0.7-1.2 m/s) MITRAL VALVE: Normal Ranges: MV DT: 123 msec (150-240msec) MITRAL INSUFFICIENCY: Normal Ranges: MR Vmax: 454.00 cm/s AORTIC VALVE: Normal Ranges: AoV Vmax: 1.29 m/s (<=1.7m/s) AoV Peak P.7 mmHg (<20mmHg) AoV Mean P.0 mmHg (1.7-11.5mmHg) LVOT Max Salas: 0.50 m/s (<=1.1m/s) AoV VTI: 23.60 cm (18-25cm) LVOT VTI: 8.18 cm LVOT Diameter: 2.00 cm (1.8-2.4cm) AoV Area, VTI: 1.09 cm2 (2.5-5.5cm2) AoV Area,Vmax: 1.22 cm2 (2.5-4.5cm2) AoV Dimensionless Index: 0.35 RIGHT VENTRICLE: RV 1 3.77 cm RV 2 2.66 cm RV 3 7.76 cm TAPSE: 18.6 mm TRICUSPID VALVE/RVSP: Normal Ranges: Peak TR Velocity: 2.82 m/s RV Syst Pressure: 34.8 mmHg (< 30mmHg) PULMONIC VALVE: Normal Ranges: PV Accel Time: 70 msec (>120ms) PV Max Salas: 1.0 m/s (0.6-0.9m/s) PV Max P.2 mmHg [id number] Chris Antoine MD Electronically signed on 01/29/2022 at 11:36:10 AM Final Normal [facility] GLUCOSE-POCTon 01-29-2022 Glucose [Mass/Vol] 173 mg/dL High 74 - 99 [facility] Comment on above: Result Comment: RN/Holli D NOTIFIED Performed By: #### C BC #### [address] [address] Glucose [Mass/Vol] 110 mg/dL High 74 - 99 [facility] Comment on above: Result Comment: RN/Holli Reynoso NOTIFIED Performed By: #### C MP #### [address] [address] Order Reconciliationon 01-29 Order Reconciliation Page 1 Discharge Reconciliation Document Reconciliation Type: Discharge requested on behalf of Jairon Lopez (Physician) done by Jairon Lopez) Discharge - Reconciliation: 29-Jan-2022 10:34 by: Jairon Lopez) Discharge - Reset to Incomplete: 29-Jan-2022 11:39 by: Jairon Lopez) Discharge - Reconciliation: 29-Jan-2022 11:39 by: Jairon Lopez) Home Medications EnteredHOME MEDICATIONS AT DISCHARGE DateReconciliation Comment/ Additional Information Actos 45 mg oral tablet 1 tab(s) orally once a day 17-Jan-2019 10:53 Discontinued; Discontinue from ORM Actos 45 mg oral tablet is not required albuterol 2.5 mg/3 mL (0.083%) inhalation solution 3 milliliter(s) inhaled every 4 hours, As Needed - for shortness of breath 26-Jan-2022 12:25 albuterol 2.5 mg/3 mL (0.083%) inhalation solution 3 milliliter(s) inhaled every 4 hours, As Needed - for shortness of breath 26-Jan-2022 12:25 albuterol 2.5 mg/3 mL (0.083%) inhalation solution is continued as albuterol 2.5 mg/3 mL (0.083%) inhalation solution Aleve 220 mg oral tablet 1 tab(s) orally every 24 hours, As Needed - for pain 26-Jan-2022 12:25 Discontinued; Discontinue from ORM Aleve 220 mg oral tablet is not required amoxicillin 500 mg oral capsule 1 cap(s) orally 2 times a day 26-Jan-2022 12:26 amoxicillin 500 mg oral capsule 1 cap(s) orally 2 times a day 26-Jan-2022 12:26 amoxicillin 500 mg oral capsule is continued as amoxicillin 500 mg oral capsule atorvastatin 20 mg oral tablet 1 tab(s) orally once a day 26-Jan-2022 12:26 atorvastatin 20 mg oral tablet 1 tab(s) orally once a day 26-Jan-2022 12:26 atorvastatin 20 mg oral tablet is continued as atorvastatin 20 mg oral tablet calcitriol 0.5 mcg oral capsule 1 cap(s) orally once a day 26-Jan-2022 12:27 calcitriol 0.5 mcg oral capsule 1 cap(s) orally once a day 26-Jan-2022 12:27 calcitriol 0.5 mcg oral capsule is continued as calcitriol 0.5 mcg oral capsule Colace 100 mg oral capsule 1 cap(s) orally once a day 26-Jan-2022 12:27 Colace 100 mg oral capsule 1 cap(s) orally once a day 26-Jan-2022 12:27 Colace 100 mg oral capsule is continued as Colace 100 mg oral capsule cyclobenzaprine 5 mg oral tablet 1 tab(s) orally every 8 hours, As Needed - for spasms 26-Jan-2022 12:28 cyclobenzaprine 5 mg oral tablet 1 tab(s) orally every 8 hours, As Needed - for spasms 26-Jan-2022 12:28 cyclobenzaprine 5 mg oral tablet is continued as cyclobenzaprine 5 mg oral tablet Epogen 10,000 units/mL preservative-free injectable solution 1.3 milliliter(s) injectable every 28 days 26-Jan-2022 15:08 Epogen 10,000 units/mL preservative-free injectable solution 1.3 milliliter(s) injectable every 28 days 26-Jan-2022 15:08 Epogen 10,000 units/mL preservative-free injectable solution is continued as Epogen 10,000 units/mL preservative-free injectable solution erythromycin 500 mg oral tablet 1 tab(s) orally every 12 hours 26-Jan-2022 12:29 erythromycin 500 mg oral tablet 1 tab(s) orally every 12 hours 26-Jan-2022 12:29 erythromycin 500 mg oral tablet is continued as erythromycin 500 mg oral tablet furosemide 20 mg oral tablet 1 tab(s) orally once a day 26-Jan-2022 12:32 furosemide 20 mg oral tablet 1 tab(s) orally once a day 26-Jan-2022 12:32 furosemide 20 mg oral tablet is continued as furosemide 20 mg oral tablet gabapentin 300 mg oral capsule 1 cap(s) orally 3 times a day 17-Jan-2019 10:54 gabapentin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 pain. No fevers or chills, denies any dizziness. Objective Data: Objective Information: T PRBPMAPSpO2 [id number]/7397% Date/Time01/27 7: 7: 7: 7: 7:25 Range(35.9C - 37.6C ) (97 - 106 ) (16 - 20 ) (99 - 145 )/ (69 - 98 ) (91% - 100% ) As of 26-Jan-2022 15:30:00, patient is on 2 L/min of oxygen via nasal cannula. Highest temp of 37.6 C was recorded at 01/27 7:25 Pain reported at 01/26 22:30: 1 = Mild ---- Intake and Output ----- Mn/Dy/Year TimeIntakeOutputNet Jan 27, 2022 6:00 am000 Jan 26, 2022 10:00 pm000 Physical Exam by System: Constitutional: Wake, alert, morbidly obese, appears short of breath Head/Neck: Short neck, atraumatic head Respiratory/Thorax: Some improvement in basilar crepitations Cardiovascular: Tachycardic, regular rhythm Gastrointestinal: Distended, soft, nontender Extremities: 2+ bilateral lower extremity pitting edema Neurological: Awake, alert, nonfocal Psychological: Appropriate mood and behavior Medication: Medications: Continuous Medications -------- No continuous medications are active Scheduled Medications -------- 1. Albuterol 2.5 mg - Ipratropium 0.5 mg/ 3 mL Neb Soln: 3 mL Inhalation 3 Times a Day 2. Atorvastatin: 20 mg Oral At Bedtime 3. Azithromycin 500 mg/ D5W 250 mL: 500 mg IntraVenous Piggyback Every 24 Hours 4. Calcitriol: 0.5 microgram(s) Oral Daily 5. cefTRIAXone 2 gram/Dextrose 5% IVPB Premixed Soln 50 mL: 50 mL IntraVenous Piggyback Every 24 Hours 6. Docusate: 100 mg Oral 2 Times a Day 7. Furosemide Injectable: 20 mg IntraVenous Push 2 Times a Day 8. Gabapentin: 300 mg Oral 3 Times a Day 9. Heparin SubCutaneous: 5000 unit(s) SubCutaneous Every 8 Hours 10. Insulin Glargine (Lantus) Injectable: 40 unit(s) SubCutaneous At Bedtime 11. Insulin Lispro Moderate Corrective Scale: unit(s) SubCutaneous 3 Times a Day Before Meals 12. Sennosides: 1 tablet(s) Oral At Bedtime PRN Medications -------- 1. Acetaminophen: 650 mg Oral Every 4 Hours 2. Cyclobenzaprine: 5 mg Oral 3 Times a Day 3. Dextrose 50% in Water Injectable: 25 gram(s) IntraVenous Push Every 15 Minutes 4. Glucagon Injectable: 1 mg IntraMuscular Every 15 Minutes 5. Magnesium Hydroxide -Al Hydrox -Simethicone Oral Liquid: 30 mL Oral Every 6 Hours 6. Magnesium Hydroxide Oral Liquid CONCENTRATE: 10 mL Oral Every 24 Hours 7. Melatonin: 10 mg Oral Daily 1800 8. Ondansetron Injectable: 4 mg IntraVenous Push Every 4 Hours 9. oxyCODONE Immediate Release: 5 mg Oral Every 4 Hours Conditional Medication Orders -------- 1. Perflutren Lipid Microsphere (Activated) 1.3 mL / NaCL 0.9% T.V. 10 mL Injectable: 0.5 mL IntraVenous Push Once Currently Suspended Medications -------- 1. Venlafaxine: 37.5 mg Oral Daily Recent Lab Results: Results: CBC: 01/27/2022 05:19 \ Hgb / \ 9.8 L / WBC Plt 7.0 288 / Hct \ / 31.1 L \ RBC: 3.19 L MCV: 98 Neutrophil %: 75.6 CMP: 01/27/2022 05:19 NA+ Cl- BUN / 124 L 87 L 48 H / -------- Glucose --- 189 H K+ HCO3- Creat \ 4.1 32 2.03 H \ \ T Bili / \ 0.4 / AST x ---- x ALT 13 x ---- x 17 / Alk P \ / 44 \ Calcium : 9.3 Anion Gap : 9 L Albumin : 3.6 T Protein : 5.9 L Assessment and Plan: Comorbidities: ComorbidityOther Code Status: Code StatusFull Code Assessment: 76-year-old female with diabetes, possible chronic kidney disease, hyperlipidemia, neuropathy, anxiety/depression admitted with acute CHF, possible pneumonia, hyponatremia, elevated creatinine and anemia Her shortness of breath has improved Her sodium went down to 124 and creatinine worsened only slightly It could be that she is drinking too much water after diuresis For now I will decrease Lasix to 20 mg IV twice daily Continue to monitor sodium levels and creatinine Has been put on a fluid overload Follow-up on echocardiogram findings Urine sodium and other studies sent by nephrology Appreciate nephrology input Continue ceftriaxone azithromycin for pneumonia Follow-up on procalcitonin level Oxygen support as needed, nebulizer breathing treatments Troponin have remained flat Continue Lantus, insulin sliding scale, fingerstick blood sugar monitoring Hemoglobin has remained stable Will put venlafaxine on hold for now due to hyponatremia, continue gabapentin Symptomatic treatment DVT prophylaxis Electronic Signatures: Zulfiqa (more content not included)... Normal [facility] 01-27-2022 Glucose [Mass/Vol] 152 mg/dL High 74 - 99 [facility] Comment on above: Performed By: #### C MP #### [address] [address] Glucose [Mass/Vol] 188 mg/dL High 74 - 99 [facility] Comment on above: Performed By: #### G ROVERTO #### [address] [address] Glucose [Mass/Vol] 163 mg/dL High 74 - 99 [facility] Comment on above: Performed By: #### G ROVERTO #### [address] [address] SODIUM, URINE SPOTon 022 CREATININE,URINE 75.0 mg/dL Normal 20.0 - 320.0 [facility] Comment on above: Performed By: #### G ROVERTO #### [address] [address] Sodium (U) [Moles/Vol] 49 mmol/L Normal Not Established [facility] Comment on above: Performed By: #### G ROVERTO #### [address] [address] SODIUM/CREAT RATIO 65 mmol/g Creat Normal Not Established [facility] Comment on above: Performed By: #### G ROVERTO #### [address] [address] CBC AND DIFFERENTIALon 01-26 % AUTOMATED IMMATURE GRAN 0.5 % Normal 0.0 - 0.9 [facility] Comment on above: Result Comment: Mely ture Granulocyte Count (IG) includes promyelocytes, myelocytes and metamyelocytes but does not include bands. Percent differential counts (%) should be interpreted in the context of the absolute cell counts (cells/L). Performed By: #### C BCDF #### [place] [id number] Basophils (Bld) [#/Vol] 0.04 10*3/uL Normal 0.00 - 0.10 [facility] Comment on above: Performed By: #### C BCDF #### [address] [address] Basophils/100 WBC (Bld) 0.5 % Normal 0.0 - 2.0 [facility] Comment on above: Performed By: #### C BCDF #### [address] [address] Eosinophils (Bld) [#/Vol] 0.18 10*3/uL Normal 0.00 - 0.40 [facility] Comment on above: Performed By: #### C BCDF #### [address] [address] Eosinophils/100 WBC (Bld) 2.4 % Normal 0.0 - 6.0 [facility] Comment on above: Performed By: #### C BCDF #### [address] [address] Erythrocyte distribution width (RBC) [Ratio] 14.0 % Normal 11.5 - 14.5 [facility] Comment on above: Performed By: #### C BCDF #### [address] [address] Hematocrit (Bld) [Volume fraction] 30.9 % Low 36.0 - 46.0 [facility] Comment on above: Performed By: #### C BCDF #### [address] [address] Hemoglobin (Bld) [Mass/Vol] 10.0 g/dL Low 12.0 - 16.0 [facility] Comment on above: Performed By: #### C BCDF #### [address] [address] Lymphocytes (Bld) [#/Vol] 0.91 10*3/uL Normal 0.80 - 3.00 [facility] Comment on above: Performed By: #### C BCDF #### [address] [address] Lymphocytes/100 WBC (Bld) 12.1 % Normal 13.0 - 44.0 [facility] Comment on above: Performed By: #### C BCDF #### [address] [address] MCHC (RBC) [Mass/Vol] 32.4 g/dL Normal 32.0 - 36.0 [facility] Comment on above: Performed By: #### C BCDF #### [address] [address] MCV (RBC) [Entitic vol] 98 fL Normal 80 - 100 [facility] Comment on above: Performed By: #### C BCDF #### [address] [address] Monocytes (Bld) [#/Vol] 0.67 10*3/uL Normal 0.05 - 0.80 [facility] Comment on above: Performed By: #### C BCDF #### [address] [address] Monocytes/100 WBC (Bld) 8.9 % Normal 2.0 - 10.0 [facility] Comment on above: Performed By: #### C BCDF #### [address] [address] Neutrophils (Bld) [#/Vol] 5.67 10*3/uL High 1.60 - 5.50 [facility] Comment on above: Result Comment: Perc ent differential counts (%) should be interpreted in the context of the absolute cell counts (cells/L). Performed By: #### C BCDF #### [address] [address] Neutrophils/100 WBC (Bld) 75.6 % Normal 40.0 - 80.0 [facility] Comment on above: Performed By: #### C BCDF #### [address] [address] Platelets (Bld) [#/Vol] 263 10*3/uL Normal 150 - 450 [facility] Comment on above: Performed By: #### C BCDF #### [address] [address] RBC 3.17 x10E12/L Low 4.00 - 5.20 [facility] Comment on above: Performed By: #### C BCDF #### [address] [address] WBC (Bld) [#/Vol] 7.5 10*3/uL Normal 4.4 - 11.3 [facility] Comment on above: Performed By: #### C BCDF #### [address] [address] CHEST 1 VIEWon 01-26-2022 CHEST 1 VIEW STUDY: Chest Radiograph; 01/26/2022, 12:37PM INDICATION: Pneumonia. Shortness of breath. COMPARISON: None Available ACCESSION NUMBER(S): [id number] ORDERING CLINICIAN: REYNALDO BOLAÑOS DO TECHNIQUE: Frontal chest was obtained at 12:33 hours. FINDINGS: CARDIOMEDIASTINAL SILHOUETTE: The cardiomediastinal silhouette appears mildly enlarged. Left approach central venous access line is in place with the tip in the projection of the SVC/right atrium. LUNGS: There are bibasilar infiltrates or atelectasis with bilateral pleural effusions. Prominence of central pulmonary vasculature is noted. Apical detail is partly obscured by the chin. No apparent pneumothorax.. ABDOMEN: No remarkable upper abdominal findings. BONES: No acute osseous changes. IMPRESSION: 1.\X09\Mild enlargement of the cardiac silhouette with pulmonary vascular congestion. 2.\X09\Bibasilar infiltrates or atelectasis with bilateral pleural effusions. Pneumonia is a possibility. 3.\X09\Left approach central venous access line in place with the tip in the SVC/right atrium. Signed by Jeanie Huerta DO Electronically signed by: JEANIE HUERTA DO Normal [facility] COMPREHENSIVE PANELon 2021 Albumin [Mass/Vol] 3.6 g/dL Normal 3.4 - 5.0 [facility] Comment on above: Performed By: #### C BCDF #### [address] [address] ALP [Catalytic activity/Vol] 45 U/L Normal 33 - 136 [facility] Comment on above: Performed By: #### C BCDF #### [address] [address] ALT [Catalytic activity/Vol] 18 U/L Normal 7 - 45 [facility] Comment on above: Result Comment: Tate ents treated with Sulfasalazine may generate falsely decreased results for ALT. Performed By: #### C BCDF #### [address] [address] Anion gap [Moles/Vol] 10 mmol/L Normal 10 - 20 [facility] Comment on above: Performed By: #### C BCDF #### [address] [address] AST [Catalytic activity/Vol] 14 U/L Normal 9 - 39 [facility] Comment on above: Performed By: #### C BCDF #### [address] [address] Bilirubin [Mass/Vol] 0.3 mg/dL Normal 0.0 - 1.2 [facility] Comment on above: Performed By: #### C BCDF #### [address] [address] Calcium [Mass/Vol] 9.4 mg/dL Normal 8.6 - 10.3 [facility] Comment on above: Performed By: #### C BCDF #### [address] [address] Chloride [Moles/Vol] 91 mmol/L Low 98 - 107 [facility] Comment on above: Performed By: #### C BCDF #### [address] [address] Creatinine [Mass/Vol] 1.90 mg/dL High 0.50 - 1.05 [facility] Comment on above: Performed By: #### C BCDF #### [address] [address] GFR/1.73 sq M.predicted among non-blacks MDRD (S/P/Bld) [Vol rate/Area] 27 mL/min/{1.73_m2} Abnormal >90 [facility] Comment on above: Result Comment: CALC ULATIONS OF ESTIMATED GFR ARE PERFORMED USING THE 2020 CKD-EPI STUDY REFIT EQUATION WITHOUT THE RACE VARIABLE FOR THE IDMS-TRACEABLE CREATININE METHODS. https://jasn.asnjournals.org/content/early//ASN.699818 2060 Performed By: #### C BCDF #### [address] [address] Glucose [Mass/Vol] 106 mg/dL High 74 - 99 [facility] Comment on above: Performed By: #### C BCDF #### [address] [address] HCO3 (Bld) [Moles/Vol] 32 mmol/L Normal 21 - 32 [facility] Comment on above: Performed By: #### C BCDF #### [address] [address] Potassium [Moles/Vol] 4.6 mmol/L Normal 3.5 - 5.3 [facility] Comment on above: Performed By: #### C BCDF #### [place] [address] Protein [Mass/Vol] 6.3 g/dL Low 6.4 - 8.2 [facility] Comment on above: Performed By: #### C BCDF #### [place] [address] Sodium [Moles/Vol] 128 mmol/L Low 136 - 145 [facility] Comment on above: Result Comment: Conf irmed by repeat analysis Performed By: #### C BCDF #### [place] [address] Urea nitrogen [Mass/Vol] 49 mg/dL High 6 - 23 [facility] Comment on above: Performed By: #### C BCDF #### [place] [address] CORONAVIRUS 2019 BY PCRon SARS-CoV-2 (COVID-19) RNA ALY+probe Ql (Unsp spec) Canceled Normal [facility] Comment on above: Order Comment: TEST CORONAVIRUS 2019 BY PCR WAS CANCELLED, 01/26/2022 12:19 Result Comment: . This test has received FDA Emergency Use Authorization (EUA) and has been verified by [facility]. This test is only authorized for the duration of time that circumstances exist to justify the authorization of the emergency use of in vitro diagnostic tests for the detection of SARS-CoV-2 virus and/or diagnosis of COVID-19 infection under section 564(b)(1) of the Act, 21 U.S.C. 360bbb-3(b)(1), unless the authorization is terminated or revoked sooner. [facility] is certified under CLIA-88 as qualified to perform high complexity testing. Testing is performed in the [facility] laboratory located at [address] [place] [address]. SARS-CoV-2/Flu/RSV Multiplex Test: Fact sheet for providers: https://www.fda.gov/media/099710/download Fact sheet for patients: https://www.fda.gov/media/499384/download Performed By: #### C MP #### [address] [address] Lab Specimen Source Nasal, Nasopharyngeal Normal [facility] Comment on above: Order Comment: TEST CORONAVIRUS 2019 BY PCR WAS CANCELLED, 01/26/2022 12:19 Performed By: #### C MP #### [address] [address] CREATINE KINASEon 01-26-2022 CK [Catalytic activity/Vol] 69 U/L Normal 0 - 215 [facility] Comment on above: Performed By: #### G ROVERTO #### [address] [address] Covid 19 Resultson SARS-CoV-2 (COVID-19) RNA ALY+probe Ql (Unsp spec) NEGATIVE COVID-19 Test Coronaviruses are common world-wide and are the cause of many common colds. SARS-COV2 is a new coronavirus that began circulating worldwide in 2019 so we are calling it COVID-19. It has been estimated that four out of five patients with COVID-19 will recover at home without the need for medical attention. Symptoms of COVID-19 may include cough, fever, shortness of breath, loss of taste or smell and other flu-like symptoms including chills, sore muscles, sore throat, and headache. Severe illness is more common in older people and people with other health problems such as high blood pressure, obesity, and immune system problems. If the test is positive, you have COVID-19. You will be contacted by the ordering physicians office and instructed to remain on home isolation, in accordance with CDC guidelines. You may also be contacted by the [facility] to see if any of your close contacts may have been exposed to the virus and need to quarantine. If the test is negative, you likely do not have COVID-19 at this time, but you still may have a different illness that can spread to other people (like Influenza, or the Flu) and could still be at risk for getting COVID-19. We recommend that you stay away from other people to limit the spread of illness until your symptoms are improving and you are fever-free for 24 hours without the use of fever lowering medications such as acetaminophen or ibuprofen. No test is 100% accurate so if you are still concerned you may have COVID-19, talk to your doctor about the need to continue to stay away from others. Medicines Unless your provider told you not to use the following: Acetaminophen (Tylenol and others) is generally safe. Anti-inflammatory medications, such as Ibuprofen (Advil or Motrin) or Naproxen (Aleve) can also be used. Xoki-obg-aakaxhb cough and cold medicines can be used according to the instructions on the package. Some ejqr-mog-gxrloqj medicines also contain acetaminophen. Make sure you are not taking more than your recommended dose. For those not hospitalized, there is no specific treatment available for this illness. Antibiotics do not treat Coronaviruses. Follow-Up Follow up with your doctor by scheduling a virtual visit or consider follow-up at one of our urgent care fever clinics. If you are having difficulty breathing, or are very weak and having difficulty standing, this is a medical emergency. Call 911 or have someone take you to the nearest emergency room immediately. If possible, wear a facemask. Additional guidance from the CDC for patients who tested POSITIVE for COVID-19 How to isolate: Isolate yourself in a specific room at home and limit your contact with others. Use a separate bathroom from other members of the household, when possible. Leave home only to get essential medical care. Do not go to work, school or public areas. Avoid using public transportation, ride-sharing, or taxis. Restrict contact with pets and other animals. If you must care for your pet or be around animals while you are sick, wash your hands before and after your interaction and wear a facemask. Make sure that shared spaces in the home have good airflow, such as by an air conditioner or an opened window, weather permitting. Personal Hygiene Procedures: Wear a face mask when in the same room as other people or pets. If a face mask interferes with your breathing, others should wear a mask when sharing space with you. Frequent hand-washing: wash your hands with soap and water for at least 20 seconds. If soap and water are not available, use alcohol-based hand hospital education coordinator. Avoid touching your eyes, nose, and mouth with unwashed hands. Household Hygiene Procedures: Avoid sharing personal household items such as dishes, glassware, cups, eating utensils, towels or bedding with other people or pets in your home. After use, these items should be washed with soap and hot water. Disinfect all high-touch surfaces every day with antibacterial cleaning solutions such as Lysol wipes, bleach, cleansers, etc. High-touch surfaces include tabletops, doorknobs, bathroom fixtures, toilets, phones, keyboards, tablets and bedside tables. Immediately clean any surfaces that may have blood, poop or body fluids on them, using antibacterial cleaning solutions such as Lysol wipes, bleach, cleansers, etc. If clothing or bedding come into contact with blood, poop or body fluids, they should be washed immediately. Follow the directions on the laundry detergent and clothing labels but hot water is recommended when possible. Stopping home isolation precautions: If possible, consult your doctor before stopping home isolation precautions. According to the CDC, you can discontinue home isolation precautions when you have met both of these criteria: Your fever and respiratory symptoms have been gone for 24 lili (more content not included)... Normal [facility] Discharge Planning Mstc2dc 1 03-28-2021 Discharge Planning Note2 Discharge Planning: Planned Dispositionskilled/rehab /extended care Discharge Transportation Needed from [facility] Anticipated Discharge [id number] Discharge Planning 01/27/22@ [address]/SW note. Reviewed patient in care rounds this morning and anticipate d/c on monday 01/29. SW reviewed chart and then met with Patient. Sw introduced self and explained our role in the discharge process. Patient shared that she is at [facility] for therapy and will return there. She said that she was close to being finished with her stay there. She said that she is walking with her walker and is hoping that she will not have to stay there too long. SW did call [facility] and spoke with nurse to confirm that patient is there under her skilled stay and she is . SW did contact MILADY -Tanya to make referral to [facility]. Plan is for patient to return to [facility] when ready. CT/SW to follow. Linda Fournier CASTING CARRIER,DIRECTOR GEOPHYSICAL LABORATORY 01/27/2022 1259 DSC: Built and sent return referral to [facility], awaiting response. Melita Salcedo Care Navigation Team [phone] 01/29/2022 1200: Care Transitions - Social Work: Pt reviewed in care rounds mtg at midday today. Pt medically appropriate for d/c. SW met with Pt who, when provided with list of potential referral choices, confirmed that Pt wishes to return to [facility]. SW also reviewed IMM with Pt. SW phoned [facility] who confirmed that they only need orders for Pt to return today; no HENS needed as Pt is returning. SW asked DSC/Prince to attach and send orders via [employer]. Nursing to perform updated COVID test and arrange transport. 1215: Per charge nurse/Marisel, Pt's son wishes to meet with SW. SW met with Pt and Pt's son at bedside. Pt and Pt's son confirmed that Pt is not enjoying Pt's time at [facility]. However, Pt and son state that Pt's rehab stay may not be much longer, and that trying to change to new facility at this stage may be more disruptive than it is helpful. SW offered support and understanding. SW educated Pt and Pt's son re: tdujbakj-zd-wkpenauw transfer possibility, if Pt wishes to transfer after returning. Pt and son expressed understanding. - 1340: SW attached and sent COVID-negative test results to [facility] via [employer]. Nursing has confirmed transport time for 1430. SW updated [facility] and Pt's son. Plan for Pt to return to [facility] at [address] needs foreseen. CT available upon request. Johana Hobson DIRECTOR GEOPHYSICAL LABORATORY Discharge Note: 01/29/2022 1447 Discharged via stretcher by [facility], ambulette transport, to [facility], paperwork packet sent with transporter, personal belongings taken by transporter, no distress noted, no complaints voiced. Fredo NARAYANthreat monitoring analyst: Discharge Planning Assessment [id number] Primary Contact Name and NumberRd (son): [phone](1) Lives Withalone(1) Living Arrangementsnursing home; [facility](1) Stated [facility] (1) Arrived Fromemergency department (1) Resource/Environmental Concernsnone(1) Anticipated Transition Toinpatient rehabilitation facility(1) Services Anticipated at Transitionnone(1) Nursing Checklist: Lines/Cathetersremoved/a ppropriate for next level of care Discharge Med Rec Reconciled with Marcos Patient has Prescriptionsyes [facility] Involvementpatient disposition other than home Discharge Documentation: Discharge/Transfer Date/[id number] 14:47 Transportation Methodtransportation service Discharge Modestretcher Code StatusCode Status order at time of discharge: Full Code Discharge Order Writtenye [place] DNR Form Sent with Patient and/or Familyn/a Valuables/Medications/Be longings Returnedyes [facility] Electronic Signatures: Yue Leahy (CHILD PROTECTIVE SERVICES SOCIAL WORKER) (Signed 28-Jan-2022 07:53) Authored: Discharge Planning Tamra Lemos (RN) (Signed 29-Jan-2022 15:31) Authored: Discharge Planning, Nursing Checklist, Discharge Documentation Linda Harris (DIRECTOR GEOPHYSICAL LABORATORY) (Signed 27-Jan-2022 12:24) Authored: Discharge Planning Melita Salcedo (COOR) (Signed 27-Jan-2022 12:54) Authored: Discharge Planning Johana Hobson (DIRECTOR GEOPHYSICAL LABORATORY) (Signed 29-Jan-2022 13:44) Authored: Discharge Planning Lynn Ramirez (RN) (Signed 29-Jan-2022 14:47) Authored: Discharge Planning, Discharge Documentation Donald Garg (RN) (Signed 26-Jan-2022 16:39) Authored: Discharge Planning, Assessment Last Updated: 29-Jan-2022 15:31 by Tamra Lemos (RN) References: 1. Data Referenced From Patient Profile - Adult v2 26-Jan-2022 16:27 Normal [facility] GLUCOSE-POCTon 01-26-2022 Glucose [Mass/Vol] 192 mg/dL High 74 - 99 [facility] Comment on above: Performed By: #### U ARFX #### [address] [address] HEMOGLOBIN A1Con 01-26-2022 Glucose [Mass/Vol] 163 mg/dL Normal [facility] Comment on above: Performed By: #### G ROVERTO #### [address] [address] HbA1c (Bld) [Mass fraction] 7.3 % Abnormal [facility] Comment on above: Result Comment: Diag nosis of Diabetes-Adults Non-Diabetic: < or = 5.6% Increased risk for developing diabetes: 5.7-6.4% Diagnostic of diabetes: > or = 6.5% . Monitoring of Diabetes Age (y) Therapeutic Goal (%) Adults: >18 <7.0 Pediatrics: 13-18 <7.5 7-12 <8.0 0- 6 7.5-8.5 Citizen Of [place] Diabetes Association. Diabetes Care 33(S1), Mar 2009. Performed By: #### G ROVERTO #### [place] [id number] INFLUENZA A/B, COVID 2019 PC R,SYMPTOMATICon 01-26-2022 INFLUENZA A, PCR Not detected Normal Not Detected [facility] Comment on above: Result Comment: Resp iratory virus testing is performed routinely by PCR for Influenza A/B and RSV. Not Detected results do not preclude Influenza A/B or RSV infections since the adequacy of sample collection or low viral burden may impact the clinical sensitivity of this test method. Performed By: #### C OINP #### [place] [address] INFLUENZA B, PCR Not detected Normal Not Detected [facility] Comment on above: Result Comment: Resp iratory virus testing is performed routinely by PCR for Influenza A/B and RSV. Not Detected results do not preclude Influenza A/B or RSV infections since the adequacy of sample collection or low viral burden may impact the clinical sensitivity of this test method. Performed By: #### C OINP #### [place] [address] SARS-CoV-2 (COVID-19) RNA ALY+probe Ql (Unsp spec) Not detected Normal Not Detected [facility] Comment on above: Result Comment: . This test has received FDA Emergency Use Authorization (EUA) and has been verified by [facility]. This test is only authorized for the duration of time that circumstances exist to justify the authorization of the emergency use of in vitro diagnostic tests for the detection of SARS-CoV-2 virus and/or diagnosis of COVID-19 infection under section 564(b)(1) of the Act, 21 U.S.C. 360bbb-3(b)(1), unless the authorization is terminated or revoked sooner. [facility] is certified under CLIA-88 as qualified to perform high complexity testing. Testing is performed in the [facility] laboratory located at [address] [place] [address]. SARS-CoV-2/Flu/RSV Multiplex Test: Fact sheet for providers: https://www.fda.gov/media/125558/download Fact sheet for patients: https://www.fda.gov/media/367059/download Performed By: #### C OINP #### [place] [address] Lab Specimen Source Nasal, Nasopharyngeal Normal [facility] Comment on above: Performed By: #### C OINP #### [place] [address] LACTATEon 01-26-2022 Lactate [Moles/Vol] 0.4 mmol/L Normal 0.4 - 2.0 [facility] Comment on above: Result Comment: Alba puncture immediately after or during the administration of Metamizole may lead to falsely low results. Testing should be performed immediately prior to Metamizole dosing. Performed By: #### L ACT #### [place] [address] Order Reconciliationon 01-26 Order Reconciliation Page 1 Admission Reconciliation Document Reconciliation Type: ED to Observation requested on behalf of Jairon Lopez (Physician) done by Jairon Lopez) ED to Observation - Reconciliation: 26-Jan-2022 16:28 by: Jairon Lopez) ED to Observation - AutoLinked: 26-Jan-2022 16:28 by: Jairon Lopez) Home MedicationsEnteredLast Dose TakenReconciled with current Order Reconciliation Comment/ Additional Information Actos 45 mg oral tablet 1 tab(s) orally once a [id number] Reviewed and Held albuterol 2.5 mg/3 mL (0.083%) inhalation solution 3 milliliter(s) inhaled every 4 hours, As Needed - for shortness of [id number] Reviewed and Held Aleve 220 mg oral tablet 1 tab(s) orally every 24 hours, As Needed - for pain 26-Jan-2022 Reviewed and Held amoxicillin 500 mg oral capsule 1 cap(s) orally 2 times a [id number] Reviewed and Held atorvastatin 20 mg oral tablet 1 tab(s) orally once a [id number] Atorvastatin Tablet (LIPITOR)DOSE = 20 mg Oral Dailyatorvastatin 20 mg oral tablet continued as the inpatient order Atorvastatin calcitriol 0.5 mcg oral capsule 1 cap(s) orally once a [id number] Calcitriol Capsule (ROCALTROL)DOSE = 0.5 microgram(s) Oral Dailycalcitriol 0.5 mcg oral capsule continued as the inpatient order Calcitriol Colace 100 mg oral capsule 1 cap(s) orally once a [id number] Docusate Capsule (COLACE)DOSE = 100 mg Oral 2 Times a DayColace 100 mg oral capsule continued as the inpatient order Docusate cyclobenzaprine 5 mg oral tablet 1 tab(s) orally every 8 hours, As Needed - for [id number] Cyclobenzaprine Tablet (FLEXERIL)DOSE = 5 mg Oral 3 Times a Day, PRN spasmcyclobenzaprine 5 mg oral tablet continued as the inpatient order Cyclobenzaprine Epogen 10,000 units/mL preservative-free injectable solution 1.3 milliliter(s) injectable every 28 [id number] Reviewed and Held erythromycin 500 mg oral tablet 1 tab(s) orally every 12 [id number]-Imp-6530 Reviewed and Held furosemide 20 mg oral tablet 1 tab(s) orally once a gjf55-Pga-7900 Reviewed and Held gabapentin 300 mg oral capsule 1 cap(s) orally 3 times a [id number] Gabapentin Capsule (NEURONTIN)DOSE = 300 mg Oral 3 Times a Daygabapentin 300 mg oral capsule continued as the inpatient order Gabapentin HumaLOG KwikPen 100 units/mL injectable solution sliding [id number]-[id number] Reviewed and Held Lantus Solostar Pen 100 units/mL subcutaneous solution 40 unit(s) subcutaneous once a day (at bedtime)26-Jan-2022 Insulin Glargine (Lantus) Injectable DOSE = 40 unit(s) SubCutaneous At BedtimeNotes from Pharmacy: HIGH ALERT Lantus Solostar Pen 100 units/mL subcutaneous solution continued as the inpatient order Insulin Glargine (Lantus) Injectable lidocaine 4% patch Apply topically to affected area once a [id number] Reviewed and Held Melatonin 10 mg oral capsule 1 cap(s) orally once a day (at bedtime) 26-Jan-2022 Melatonin TabletDOSE = 10 mg Oral Daily 1800, PRN Insomnia Melatonin 10 mg oral capsule continued as the inpatient order Melatonin Milk of Magnesia 8% oral suspension 30 milliliter(s) orally once a day, As Needed - for [id number] Reviewed and Held pioglitazone 30 mg oral tablet 1 tab(s) orally once a [id number] Reviewed and Held Senna 8.6 mg oral tablet 1 tab(s) orally once a day (at bedtime)26-Jan-2022 Sennosides Oral Liquid DOSE = 5 mL Oral At BedtimeSenna 8.6 mg oral tablet continued as the inpatient order Sennosides Oral Liquid traMADol 50 mg oral tablet 1 tab(s) orally every 8 hours, As Needed - for pain 26-Jan-2022 Reviewed and Held Tylenol 325 mg oral tablet 2 tab(s) orally every 8 hours, As Needed - for pain 26-Jan-2022 Reviewed and Held venlafaxine 37.5 mg oral capsule, extended release 1 cap(s) orally once a day 26-Jan-2022 Venlafaxine Extended Release Capsule, Extended Release (EFFEXOR XR)DOSE = 37.5 mg Oral Dailyvenlafaxine 37.5 mg oral capsule, extended release continued as the inpatient order Venlafaxine Extended Release Additional Current Orders Albuterol 2.5 mg - Ipratropium 0.5 mg/ 3 mL Neb Soln (DUONEB)DOSE = 3 mL Inhalation 3 Times a Day via Nebulizer Azithromycin 500 mg/ D5W 250 mL (ZITHROMAX)Every 24 HoursRecommended Infusion Time: 1 hour(s) Blood Glucose POCT Before Meals, And PRN Blood Glucose POCT Once, PRN for BG 41-70 mg/dL Retest BG 15 Minutes AFTER every hypoglycemic intervention. Discontinue when BG is greater than 100 mg/dL. Call Provider For: blood glucose Greater Than 200 mg/dL Over 24 hours Provider to consider an Endocrine Consult. Call Provider For: blood glucose Greater Than 400 mg/dL Call Provider For: blood glucose Less Than 70mg/dL [place] Hypoglycemia Interventions. cefTRIAXone 2 gram/Dextrose 5% IVPB Premixed Soln 50 mL (ROCEPHIN)Every 24 HoursRecommended Infusion Time: 30 minute(s) Communication Order Every 15 Minutes, PRN, BG 41-70 mg/dLGive 15 Grams of Carbohy (more content not included)... Normal [facility] Patient Profile - Adult v2on 01-26-2022 Patient Profile - Adult v2 Profile: Initial Info: How to be AddressedJudy Spoken Language PreferredEnglish Stated Reason for [facility]missionC[facility] Care Primary Contact Name and NumberRd (son): [phone] Other Contact Names and NumbersMaxi (son): [phone] Wants Family/Rep Notified of Admissionn/a; family present Notify PCPDr. Turpin (BURAK Dey) Kidney Doctor in [place] Informed of Patient Visiting Rightsyes Arrived Fromemergency department Patient Belongingsremains with patient Patient Belongings Remaining with Patientvision aids; gold colored bifocals Medications Brought to Hospitalno General Health: Blood Avoidance/Restrictionsno ne Weight in kg123.6 kilogram(s) Weight in ckw461.4 pound(s) Weight Methodactual (measured) Scale Typebed Height in cm159.8 centimeter(s) Height in feet5 feet Height in inches2.95 inch(es) Height Methodstated BMI (kg/m2)48.402 square meter RSP Based Care: How would you like to participate in your carekeep pt informed What is the number one concern for you during this hospitalizationheart, pneumonia What is the most important thing we can do to support you during this hospitalizationn/a Is there anything we need to know to best care for youno Substance: Smoking Statusnever smoker (1) Alcohol Usedenies(2) Drug Usedenies (2) Health Mgmt: Symptoms/Conditions Managed at Homeendocrine Endocrine Symptoms/Conditionsdiabe jay jay; Stage 3 kidney Endocrine Management Strategiesblood glucose testing Endocrine Managementmanaged Relationship/Environ: Resource/Environmental Concernsnone Primary Source of Support/Comfortchild(cindy ) Lives Withalone Living Arrangementsnursing home; [facility] Services Anticipated at Transitionnone [facility] Significant IndicatorsComplete Information Review: Allergies, Home Meds and Significant Events have been Reviewed and Verified with Patient/Familyyes ALLERGY, INTOLERANCE, ADVERSE EVENT: Allergies: levofloxacin: Drug, Rash, Active Sulfacetamide Sodium: Drug, Rash, Active Electronic Signatures: Donald Garg (SYLVAIN) (Signed 26-Jan-2022 16:37) Authored: Initial Info, General Health, RSP Based Care, Substance, Health Mgmt, Relationship/Environ, Additional Information Last Updated: 26-Jan-2022 16:37 by Donald Garg (SYLVAIN) References: 1. Data Referenced From Provider Note - ED v3 26-Jan-2022 14:31 2. Data Referenced From Risk Screen - Adult Emergency 26-Jan-2022 12:27 [facility] Provider Note - ED v3on 01-16 Provider Note - ED v3 Provider Note: Chart Review ED NOTES ED NOTES: 76-year-old female presents from a nursing facility for evaluation of elevated cardiac enzymes and possible pneumonia. Patient was diagnosed this week with pneumonia and started on amoxicillin. Patient told me symptoms started approximately 3 weeks ago when she was placed on steroids. Patient states this caused her blood sugar to markedly elevate and she had some issues since. Patient did have cardiac markers done this week which were slightly elevated with most recent being 46 approximately 2 days ago. Patient is in no acute distress. Chest x-ray shows pneumonia which we will treat with IV antibiotics. Patient will be minimally hydrated and would benefit from inpatient management at this point in time. HISTORY OF PRESENTING ILLNESS VAL is a 77 year old Female and was seen by me at 26-Jan-2022 11:58 for a chief complaint of other (Pt to ED per [facility]. She reports that about 7 days ago she started feeling winded with activity. She also felt SOB while lying flat, so she started sleeping in her chair. MARTINEZ got worse on Saturday night (01/21/22). She had chest X-ray and labs drawn the next day. X-ray showed a Pneumonia per [facility] staff, so she was started on Amoxil. She also reports that she was started on Lasix. She does have B/L LE swelling. Her Troponin was elevated on Nick as well. She had repeat labs done yesterday and when results came today, it showed that Troponin had increased again. Pt denies any pain. She does have some SOB with lying back. RA SpO2 was 91% so placed 2L O2/NC on her.)(1). The historian is the patient. Triage Information: Most recent Vital Sign Value Date Temp (F): 97.9 01-26-2022 12:04 Temp (C): 36.6 01-26-2022 12:04 Heart Rate (beats/min): 101 01-26-2022 12:04 Respirations (breaths/min): 18 01-26-2022 12:04 SpO2 (%): 91 01-26-2022 12:04 BP Systolic (mm Hg): 141 01-26-2022 12:04 BP Diastolic (mm Hg): 84 01-26-2022 12:04 PAST MEDICAL HISTORY CURRENT OR FORMER SUBSTANCE USE: Tobacco/Nicotine Use: never smoker ALLERGIES/INTOLERANCES: Allergy Allergen: levofloxacin Type: Drug Reaction: Rash Allergen: Sulfacetamide Sodium Type: Drug Reaction: Rash HEALTH HISTORY: No documented data. OUTPATIENT MEDICATIONS: Home Medications Review Status for Reconciliation: Complete Med Status: Patient Currently Takes Medications Drug Name: Actos 45 mg oral tablet Instructions: 1 tab(s) orally once a day Drug Name: gabapentin 300 mg oral capsule Instructions: 1 cap(s) orally 3 times a day Drug Name: Tylenol 325 mg oral tablet Instructions: 2 tab(s) orally every 8 hours, As Needed - for pain Drug Name: albuterol 2.5 mg/3 mL (0.083%) inhalation solution Instructions: 3 milliliter(s) inhaled every 4 hours, As Needed - for shortness of breath Drug Name: Aleve 220 mg oral tablet Instructions: 1 tab(s) orally every 24 hours, As Needed - for pain Drug Name: amoxicillin 500 mg oral capsule Instructions: 1 cap(s) orally 2 times a day Drug Name: atorvastatin 20 mg oral tablet Instructions: 1 tab(s) orally once a day Drug Name: calcitriol 0.5 mcg oral capsule Instructions: 1 cap(s) orally once a day Drug Name: Colace 100 mg oral capsule Instructions: 1 cap(s) orally once a day Drug Name: cyclobenzaprine 5 mg oral tablet Instructions: 1 tab(s) orally every 8 hours Drug Name: erythromycin 500 mg oral tablet Instructions: 1 tab(s) orally every 12 hours Drug Name: Lantus Solostar Pen 100 units/mL subcutaneous solution Instructions: 40 unit(s) subcutaneous once a day (at bedtime) Drug Name: furosemide 20 mg oral tablet Instructions: 1 tab(s) orally once a day Drug Name: lidocaine 4% patch Instructions: Apply topically to affected area once a day Drug Name: Melatonin 10 mg oral capsule Instructions: 1 cap(s) orally once a day (at bedtime) Drug Name: Milk of Magnesia 8% oral suspension Instructions: 30 milliliter(s) orally once a day, As Needed - for constipation Drug Name: pioglitazone 30 mg oral tablet Instructions: 1 tab(s) orally once a day Drug Name: Senna 8.6 mg oral tablet Instructions: 1 tab(s) orally once a day (at bedtime) Drug Name: traMADol 50 mg oral tablet Instructions: 1 tab(s) orally every 8 hours, As Needed - for pain Drug Name: venlafaxine 37.5 mg oral capsule, extended release Instructions: 1 cap(s) orally once a day SIGNIFICANT EVENTS: Past Medical History Description:FROZEN RT SHOULDER Description:low back pain Description:DM Description:HTN Past Surgical History Description:RT ANKLE PLATES/SCREWS REVIEW OF SYSTEMS CONSTITUTIONAL: POSITIVE for: malaise CARDIOVASCULAR: POSITIVE for: edema RESPIRATORY: POSITIVE for: cough and dyspnea All other systems reviewed and are negative CRITICAL CARE RESULTS: Recent Lab Results: I have reviewed t (more content not included)... Normal [facility] Risk Screen - Adult Emergenc n 01-26-2022 Risk Screen - Adult Emergency Preferred Language: Preferred Language: Preferred Language for Discussing Health Care (patient/designee)Jim dempsey Patient Preferred Pharmacy: Patient Preferred Pharmacy Statement: I have reviewed and updated the patient's preferred pharmacy selection for today's visit. Advanced Directives: Advance Directive/DNRyes Advance Directive typeDNR- CCA Family Violence Adult: Abuse Screen: Are you or have you been threatened or abused physically, emotionally, or sexually by anyoneno Learning Assessment (Patient): Learning Assessment (Patient): Patient is Able to be Assessed for Learningyes Factors Influencing Readiness to Learninterest in learning Factors that Impact Ability to Learnnone Devices/Methods Used to Communicatenone Learning Preferencesverbal instruction Cultural Considerationsnone Developmental Considerationsnone Pentecostal Considerationsnone Learning Assessment (Other Learner): Learning Assessment (Other Learner): Other learner availableno Pressure Injury/TB/Substance: Pressure Injury: Pressure Injury Present on Admissionno Do you have a coughyes... Has your cough lasted longer than 2 weeksno Smoking Statusformer smoker Alcohol Usedenies Drug Usedenies Admission Risk Screen: Significant IndicatorsComplete CAGE: CAGE: Is this an injured patient at a Trauma Center ([facility]/[place] /[place]): no Electronic Signatures: Dania Ibanez (RN) (Signed 26-Jan-2022 12:28) Authored: Preferred Language, Patient Preferred Pharmacy, Advanced Directives, Family Violence Adult, Learning Assessment (Patient), Learning Assessment (Other Learner), Pressure Injury/TB/Substance, Pressure Injury, CAGE Last Updated: 26-Jan-2022 12:28 by Dania Ibanez (SYLVAIN) Normal [facility] TROPONIN I, HIGH SENSITIVITY on 01-26-2022 TROPONIN I, HIGH SENSITIVITY 50 ng/L High 0 - 13 [facility] Comment on above: Result Comment: . Less than 99th percentile of normal range cutoff- Female and children under 18 years old <14 ng/L; Male <21 ng/L: Negative Repeat testing should be performed if clinically indicated. . Female and children under 18 years old 14-50 ng/L; Male 21-50 ng/L: Consistent with possible cardiac damage and possible increased clinical risk. Serial measurements may help to assess extent of myocardial damage. . >50 ng/L: Consistent with cardiac damage, increased clinical risk and myocardial infarction. Serial measurements may help assess extent of myocardial damage. . NOTE: Children less than 1 year old may have higher baseline troponin levels and results should be interpreted in conjunction with the overall clinical context. . NOTE: Troponin I testing is performed using a different testing methodology at [facility] than at other [facility]. Direct result comparisons should only be made within the same method. Performed By: #### C #### [facility] [address] [place] [address] TROPONIN I, HIGH SENSITIVITY 42 ng/L High 0 - 13 [facility] Comment on above: Result Comment: . Less than 99th percentile of normal range cutoff- Female and children under 18 years old <14 ng/L; Male <21 ng/L: Negative Repeat testing should be performed if clinically indicated. . Female and children under 18 years old 14-50 ng/L; Male 21-50 ng/L: Consistent with possible cardiac damage and possible increased clinical risk. Serial measurements may help to assess extent of myocardial damage. . >50 ng/L: Consistent with cardiac damage, increased clinical risk and myocardial infarction. Serial measurements may help assess extent of myocardial damage. . NOTE: Children less than 1 year old may have higher baseline troponin levels and results should be interpreted in conjunction with the overall clinical context. . NOTE: Troponin I testing is performed using a different testing methodology at [facility] than at other [facility]. Direct result comparisons should only be made within the same method. repeated and verified Performed By: #### C #### [id number] [place] [address] Triage - EDon 01-26-2022 Triage - ED Quick Triage: The patient and/or guardian verbally acknowledges placement for services into the following (when Urgent Care Service hours are operating):emergency department Chart Review: ARRIVAL INFORMATION Mode of Arrival: ambulance [facility]: [facility] VAL ERICKSON is a Female patient with a chief complaint of other ([facility]. She reports that about 7 days ago she started feeling winded with activity. She also felt SOB while lying flat, so she started sleeping in her chair. MARTINEZ got worse on Saturday night (01/21/22). She had chest X-ray and labs drawn the next day. X-ray showed a Pneumonia per [facility] staff, so she was started on Amoxil. She also reports that she was started on Lasix. She does have B/L LE swelling. Her Troponin was elevated on Saturday as well. She had repeat labs done yesterday and when results came today, it showed that Troponin had increased again. Pt denies any pain. She does have some SOB with lying back. RA SpO2 was 91% so placed 2L O2/NC on her.). Triage Date/Time: 26-Jan-2022 11:49 SARAN: 2 Pain Rating (0-10): 0 = None Pain location: denies Vital Signs: Temperature: 97.9F ( 36.6C) taken temporal Blood Pressure: 141/84 Mean: Heart Rate: 101 Respiratory Rate: 18 Pulse Oximetry: 91% on supplemental O2. Mode Of Oxygen Delivery: nasal cannula at a rate of 2.000 liters/minute. Weight: 271.1 pounds. Calculated 123.0 kg. [place] Coma Scale: Best Eye Response: (E4) spontaneous Best Motor Response: (M6) obeys commands Best Verbal Response: (V5) oriented [place] Score: 15 Cough lasting greater than 3 weeks: no Allergies: yes Mask applied: yes Patient has homicidal thoughts: no Symptoms Are POSITIVE For: dyspnea Symptoms Are Negative For: anxiety, chills, diaphoresis, headache, loss of consciousness, nausea, numbness, pain, tingling and weakness Last Known Well: unknown Risk Screens Suicide Risk Screen In the Past Month: Have you wished you were or wished you could go to sleep and not wake up no In the Past Month: Have you had any actual thoughts of killing yourself no In Your Lifetime: Have you ever done anything, started to do anything, or prepared to do anything to end your life no Shoemaker Fall Scale Screening Has the patient fallen before (or is the patient in the ED as a result of a fall) has not had a fall Does the patient have an impaired gait does not have impaired gait Is the patient cognitively impaired not cognitively impaired Interventions: Shoemaker Fall Interventions: LOW INTERVENTIONS: *patient oriented to surroundings and call system, * patient/family falls education completed and documented, *patients fall status communicated during bedside handoff, *whiteboard updated, *mode of toileting discussed with patient, *bed in low position with brakes locked, *call light in reach, * non-skid footwear TRAVEL HISTORY Travel History Coronavirus Screening: no exposure or symptoms Travel Exposure History: NO travel to International locations in the past 30 days PAIN Pain Scale Used: HOSSEIN Pain Rating (0-10): 0 = None Past Medical History: Past Medical History Reviewedyes HTN: Past Medical History, Active DM: Past Medical History, Active low back pain: Past Medical History, Active Electronic Signatures: Paz Cardenas) (Signed 26-Jan-2022 12:14) Entered: Risk Screens, Pain, Travel History, Chart Review, Scores, Past Medical History Authored: Quick Triage, Risk Screens, Pain, Travel History, Chart Review, Scores, Past Medical History Last Updated: 26-Jan-2022 12:14 by Paz Cardenas (RN) Normal [facility] UA MICROSCOPICon 01-26-2022 BACTERIA 1+ /HPF Abnormal [facility] Comment on above: Performed By: #### G ROVERTO #### [address] [address] RBC 1 /HPF Normal 0-5 [facility] Comment on above: Performed By: #### G ROVERTO #### [id number] WBC 9 /HPF Abnormal 0-5 [facility] Comment on above: Performed By: #### G ROVERTO #### [place] [id number] URINALYSIS WITH CULTURE IF I NDICATEDon 01-26-2022 Appearance (U) CLEAR Normal CLEAR [facility] Comment on above: Performed By: #### U ARFX #### [place] [address] Bilirubin Ql (U) Negative Normal NEGATIVE [facility] Comment on above: Performed By: #### U ARFX #### [address] [address] Color (U) Straw Normal STRAW,YELLOW [facility] Comment on above: Performed By: #### U ARFX #### [address] [address] Glucose Ql (U) Negative Normal NEGATIVE [facility] Comment on above: Performed By: #### U ARFX #### [address] [address] Hemoglobin Ql (U) Negative Normal NEGATIVE [facility] Comment on above: Performed By: #### U ARFX #### [address] [address] Ketones Ql (U) Negative Normal NEGATIVE [facility] Comment on above: Performed By: #### U ARFX #### [address] [address] Leukocyte esterase Test strip Ql (U) TRACE Abnormal NEGATIVE [facility] Comment on above: Performed By: #### U ARFX #### [address] [address] Nitrite Ql (U) Negative Normal NEGATIVE [facility] Comment on above: Performed By: #### U ARFX #### [address] [address] pH (U) 5.0 [pH] Normal 5.0 - 8.0 [facility] Comment on above: Performed By: #### U ARFX #### [address] [address] Protein Ql (U) Negative Normal NEGATIVE [facility] Comment on above: Performed By: #### U ARFX #### [place] [id number] Specific gravity (U) [Rel density] 1.011 Normal 1.005 - 1.035 [facility] Comment on above: Performed By: #### U ARFX #### [address] [address] Urobilinogen (U) [Mass/Vol] mg/dL Normal 0.0 - 1.9 [facility] Comment on above: Performed By: #### U ARFX #### [place] [id number] URINE CULTURE,BACTERIALon URINE CULTURE,BACTERIAL PATIENT: VAL ERICKSON LOCATION: [address]#: [id number] : 43 AGE: SEX: F ORDERED BY: REYNALDO BOLAÑOS SOURCE: URINE COLLECTED: 01/26/22 12:46 ANTIBIOTICS AT [facility].: RECEIVED : 01/26/22 22:45 SITE: R E S U L T S URINE CULTURE,BACTERIAL FINAL 01/29/22 11:25 ISOLATE1 : Escherichia coli >100,000 CFU/ML Organism E coli Antibiotic BP INTRP Ampicillin R Amox/Clavulanate S Ceftriaxone S Cefazolin I Ciprofloxacin S Nitrofurantoin S Gentamicin S Levofloxacin S Piperc/Tazobact S Trimeth/Sulfa S S=SUSCEPTIBLE I=INTERMEDIATE R=RESISTANT SDD=SUSCEPTIBLE DOSE DEPENDENT NS=NONSUSCEPTIBLE X=REPORTED IN ERROR Normal [facility] Comment on above: Performed By: #### C BC #### [place] [address] Troponin I High Sensitivityo n 01-25-2022 Troponin I High Sensitivity 46 pg/mL High 0-15 [facility] Comment on above: Result Comment: PERF ORMED BY: [place] [address] PATHOLOGIST [employer] ROSEMARIE SOLANO M.D. Performed By: #### H S TROP #### [facility] [address] Troponin I.cardiac [Mass/vol ume] in Serum or Plasma by High sensitivity methodOrdered By: Issa Bonilla on 01-25-2022 Troponin I.cardiac High sensitivity method [Mass/Vol] 46 pg/mL 0-15 [facility] B-Type Natriuretic Peptideon 01-22-2022 Natriuretic peptide B (Bld) [Mass/Vol] 725.0 pg/mL High 5-100 [facility] Comment on above: Result Comment: PERF ORMED BY: [place] [address] PATHOLOGIST [employer] ROSEMARIE SOLANO M.D. Performed By: #### C MP, CBC, HS TROP, BNP #### [place] [address] [place] Basophils Auto (Bld) [#/Vol] Ordered By: Issajessie Bonilla on 01-22-2022 Basophils (Bld) [#/Vol] 0.0 10*3/uL 0.0-0.2 [facility] Basophils/100 WBC Auto (Bld) Ordered By: Issajessie Almanzae on 01-22-2022 Basophils/100 WBC (Bld) 0.5 % . [facility] Body fluid albumin measureme nt (mass/volume)Ordered By: Issa Bonilla on 01-22-2022 Albumin (Body fld) [Mass/Vol] 3.3 g/dL 3.2-5.5 [facility] Complete Blood Count Auto Di ffon 01-22-2022 Basophils (Bld) [#/Vol] 0.0 10*3/uL Normal 0.0-0.2 [facility] Comment on above: Result Comment: PERF ORMED BY: [place] [address] PATHOLOGIST [employer] ROSEMARIE SOLANO M.D. Performed By: #### C MP, CBC, HS TROP, BNP #### [place] [address] [place] Basophils/100 WBC (Bld) 0.5 % Normal . [facility] Comment on above: Performed By: #### C MP, CBC, HS TROP, BNP #### [facility] [address] [place] [address] [place] Eosinophils (Bld) [#/Vol] 0.1 10*3/uL Normal 0.0-0.45 [facility] Comment on above: Performed By: #### C MP, CBC, HS TROP, BNP #### [place] [address] [place] Eosinophils/100 WBC (Bld) 1.9 % Normal . [facility] Comment on above: Performed By: #### C MP, CBC, HS TROP, BNP #### [address] Erythrocyte distribution width (RBC) [Ratio] 15.5 % High 11.9-15.3 [facility] Comment on above: Performed By: #### C MP, CBC, HS TROP, BNP #### [address] Hematocrit (Bld) [Volume fraction] 31.4 % Low 34.0-46.4 [facility] Comment on above: Performed By: #### C MP, CBC, HS TROP, BNP #### [address] Hemoglobin (Bld) [Mass/Vol] 10.1 g/dL Low 11.8-15.4 [facility] Comment on above: Performed By: #### C MP, CBC, HS TROP, BNP #### [address] Lymphocytes (Bld) [#/Vol] 1.1 10*3/uL Normal 1.00-4.8 [facility] Comment on above: Performed By: #### C MP, CBC, HS TROP, BNP #### [address] Lymphocytes/100 WBC (Bld) 17.1 % Normal . [facility] Comment on above: Performed By: #### C MP, CBC, HS TROP, BNP #### [address] MCH (RBC) [Entitic mass] 31.2 pg Normal 24.7-34.3 [facility] Comment on above: Performed By: #### C MP, CBC, HS TROP, BNP #### [address] MCV (RBC) [Entitic vol] 97.1 fL Normal 80-100 [facility] Comment on above: Performed By: #### C MP, CBC, HS TROP, BNP #### [facility] [address] Mean Corpuscular HGB Conc 32.1 g/dL Normal 32.0-35.0 [facility] Comment on above: Performed By: #### C MP, CBC, HS TROP, BNP #### [facility] [address] Monocytes (Bld) [#/Vol] 0.6 10*3/uL Normal 0.0-0.8 [facility] Comment on above: Performed By: #### C MP, CBC, HS TROP, BNP #### [address] Monocytes/100 WBC (Bld) 9.1 % Normal . [facility] Comment on above: Performed By: #### C MP, CBC, HS TROP, BNP #### [address] Neutrophils (Bld) [#/Vol] 4.7 10*3/uL Normal 1.8-7.7 [facility] Comment on above: Performed By: #### C MP, CBC, HS TROP, BNP #### [address] Neutrophils/100 WBC (Bld) 71.4 % Normal . [facility] Comment on above: Performed By: #### C MP, CBC, HS TROP, BNP #### [place] [address] [place] Nucleated RBC/100 WBC (Bld) [Ratio] 0.1 % Normal 0-0.5 [facility] Comment on above: Performed By: #### C MP, CBC, HS TROP, BNP #### [place] [address] [place] Platelet mean volume (Bld) [Entitic vol] 7.7 fL Normal 6.3-10.7 [facility] Comment on above: Performed By: #### C MP, CBC, HS TROP, BNP #### [place] [address] [place] Platelets (Bld) [#/Vol] 304 10*3/uL Normal 150-450 [facility] Comment on above: Performed By: #### C MP, CBC, HS TROP, BNP #### [address] RBC (Bld) [#/Vol] 3.24 10*6/uL Low 3.60-5.00 [facility] Comment on above: Performed By: #### C MP, CBC, HS TROP, BNP #### [address] WBC (Bld) [#/Vol] 6.6 10*3/uL Normal 4.5-11.0 [facility] Comment on above: Performed By: #### C MP, CBC, HS TROP, BNP #### [address] Comprehensive Metabolic Pane shahana 01-22-2022 Albumin [Mass/Vol] 3.3 g/dL Normal 3.2-5.5 [facility] Comment on above: Performed By: #### C MP, CBC, HS TROP, BNP #### [address] Albumin/Globulin [Mass ratio] 0.9 {ratio} Normal [facility] Comment on above: Performed By: #### C MP, CBC, HS TROP, BNP #### [address] ALP [Catalytic activity/Vol] 49 U/L Normal 32-92 [facility] Comment on above: Result Comment: PERF ORMED BY: [place] [address] PATHOLOGIST [employer] ROSEMARIE SOLANO M.D. Performed By: #### C MP, CBC, HS TROP, BNP #### [address] ALT [Catalytic activity/Vol] 26 U/L Normal 10-60 [facility] Comment on above: Performed By: #### C MP, CBC, HS TROP, BNP #### [address] [place] [address] [place] Anion gap [Moles/Vol] 16.3 mmol/L High 6.0-15.0 [facility] Comment on above: Performed By: #### C MP, CBC, HS TROP, BNP #### [facility] [address] AST [Catalytic activity/Vol] 18 U/L Normal 10-42 [facility] Comment on above: Performed By: #### C MP, CBC, HS TROP, BNP #### [address] Bilirubin [Mass/Vol] 0.3 mg/dL Normal 0.3-1.2 [facility] Comment on above: Performed By: #### C MP, CBC, HS TROP, BNP #### [address] Calcium [Mass/Vol] 9.5 mg/dL Normal 8.2-10.2 [facility] Comment on above: Performed By: #### C MP, CBC, HS TROP, BNP #### [address] Chloride [Moles/Vol] 94 mmol/L Low 95-114 [facility] Comment on above: Performed By: #### C MP, CBC, HS TROP, BNP #### [address] CO2 [Moles/Vol] 25.4 mmol/L Normal 22.0-30.0 [facility] Comment on above: Performed By: #### C MP, CBC, HS TROP, BNP #### [facility] [address] [place] [address] Creatinine [Mass/Vol] 1.94 mg/dL High 0.44-1.03 [facility] Comment on above: Performed By: #### C MP, CBC, HS TROP, BNP #### [facility] [address] [place] [address] [place] Estimated GFR ( Isabela 30 Normal [facility] Comment on above: Result Comment: GFR estimated reference range: According to KDOQI guidelines, <60 ml/min/1.73m2 is sufficient to diagnose a patient with chronic kidney disease. Performed By: #### C MP, CBC, HS TROP, BNP #### [facility] [address] Estimated GFR (Non- Am 25 [facility] Comment on above: Performed By: #### C MP, CBC, HS TROP, BNP #### [facility] [address] Globulin (S) [Mass/Vol] 3.5 g/dL [facility] Comment on above: Performed By: #### C MP, CBC, HS TROP, BNP #### [address] Glucose [Mass/Vol] 275 mg/dL High 70-100 [facility] Comment on above: Result Comment: [place] Glucose Reference Range is dependent on time and content of last meal. Glucose of more than 200 mg/dL in a nonstressed, ambulatory subject supports the diagnosis of Diabetes Mellitus. ADA recommended reference range Performed By: #### C MP, CBC, HS TROP, BNP #### [address] Potassium [Moles/Vol] 4.7 mmol/L Normal 3.5-5.1 [facility] Comment on above: Performed By: #### C MP, CBC, HS TROP, BNP #### [facility] [address] Protein [Mass/Vol] 6.8 g/dL Normal 6.1-7.9 [facility] Comment on above: Performed By: #### C MP, CBC, HS TROP, BNP #### [facility] [address] Sodium [Moles/Vol] 131 mmol/L Low 136-146 [facility] Comment on above: Performed By: #### C MP, CBC, HS TROP, BNP #### [facility] [address] Urea nitrogen [Mass/Vol] 43 mg/dL High 9-23 [facility] Comment on above: Performed By: #### C MP, CBC, HS TROP, BNP #### [facility] [address] Creatinine and Glomerular fi ltration rate.predicted panel (S/P/Bld)Ordered By: Issa Bonilla on 01-22-2022 Creatinine [Mass/Vol] 1.94 mg/dL 0.44-1.03 [facility] Eosinophils Auto (Bld) [#/Vo l]Ordered By: Issa Bonilla on 01-22-2022 Eosinophils (Bld) [#/Vol] 0.1 10*3/uL 0.0-0.45 [facility] Eosinophils/100 WBC Auto (Bl d)Ordered By: Issa Bonilla on 01-22-2022 Eosinophils/100 WBC (Bld) 1.9 % . [facility] Erythrocyte distribution wid th Auto (RBC) [Ratio]Ordered By: Issa Bonilla on 01-22-2022 Erythrocyte distribution width (RBC) [Ratio] 15.5 % 11.9-15.3 [facility] Estimated glomerular filtrat ion rate (GFR) non- AmericanOrdered By: Issa Bonilla on 01-22-2022 GFR/1.73 sq M.predicted among non-blacks MDRD (S/P/Bld) [Vol rate/Area] 25 mL/Min [facility] Globulin Calc (S) [Mass/Vol] Ordered By: Issa Bonilla on 01-22-2022 Globulin (S) [Mass/Vol] 3.5 g/dL [facility] Hematocrit Auto (Bld) [Volum e fraction]Ordered By: Issa Bonilla on 01-22-2022 Hematocrit (Bld) [Volume fraction] 31.4 % 34.0-46.4 [facility] Hemoglobin [Mass/volume] in BloodOrdered By: Issa Bonilla on 01-22-2022 Hemoglobin (Bld) [Mass/Vol] 10.1 g/dL 11.8-15.4 [facility] Laboratory - Chemistry and C hemistry - challengeOrdered By: Issa Bonilla on 01-22-2022 Natriuretic peptide B (Bld) [Mass/Vol] 725.0 pg/mL 5-100 [facility] - Hematology and Cell countsOrdered By: Issa Bonilla on 01-22-2022 Nucleated RBC/100 WBC (Bld) [Ratio] 0.1 % 0-0.5 [facility] Leukocytes [#/volume] in Blo od by Automated countOrdered By: Issa Bonilla on 01-22-2022 WBC (Bld) [#/Vol] 6.6 10*3/uL 4.5-11.0 [facility] Lymphocytes Auto (Bld) [#/Vo l]Ordered By: Issa Bonilla on 01-22-2022 Lymphocytes (Bld) [#/Vol] 1.1 10*3/uL 1.00-4.8 [facility] Lymphocytes/100 WBC Auto (Bl d)Ordered By: Issa Bonilla on 01-22-2022 Lymphocytes/100 WBC (Bld) 17.1 % . [facility] MCH Auto (RBC) [Entitic mass ]Ordered By: Issa Bonilla on 01-22-2022 MCH (RBC) [Entitic mass] 31.2 pg 24.7-34.3 [facility] MCHC Auto (RBC) [Mass/Vol]Or dered By: Issa Bonilla on 01-22-2022 MCHC (RBC) [Mass/Vol] 32.1 g/dL 32.0-35.0 [facility] MCV Auto (RBC) [Entitic vol] Ordered By: Issa Bonilla on 01-22-2022 MCV (RBC) [Entitic vol] 97.1 fL 80-100 [facility] Monocytes Auto (Bld) [#/Vol] Ordered By: Issa Bonilla on 01-22-2022 Monocytes (Bld) [#/Vol] 0.6 10*3/uL 0.0-0.8 [facility] Monocytes/100 WBC Auto (Bld) Ordered By: Issa Bonilla on 01-22-2022 Monocytes/100 WBC (Bld) 9.1 % . [facility] Neutrophils Auto (Bld) [#/Vo l]Ordered By: Issa Bonilla on 01-22-2022 Neutrophils (Bld) [#/Vol] 4.7 10*3/uL 1.8-7.7 [facility] Neutrophils/100 WBC Auto (Bl d)Ordered By: Issa Bonilla on 01-22-2022 Neutrophils/100 WBC (Bld) 71.4 % . [facility] No Panel InformationOrdered By: Issa Bonilla on 01-22-2022 Estimated GFR () 30 mL/Min [facility] Comment on above: GFR estimated refere nce range: According to KDOQI guidelines, <60 ml/min/1.73m2 is sufficient to diagnose a patient with chronic kidney disease. Pharmacy Creatinine Clearance (Chem N/A [facility] Platelet mean volume Auto (B ld) [Entitic vol]Ordered By: Issa Bonilla on 01-22-2022 Platelet mean volume (Bld) [Entitic vol] 7.7 fL 6.3-10.7 [facility] Platelets Auto (Bld) [#/Vol] Ordered By: Issa Bonilla on 01-22-2022 Platelets (Bld) [#/Vol] 304 10*3/uL 150-450 [facility] Protein [Mass/volume] in Ser um or PlasmaOrdered By: Issa Bonilla on 01-22-2022 Protein [Mass/Vol] 6.8 g/dL 6.1-7.9 [facility] RBC Auto (Bld) [#/Vol]Ordere d By: Issa Bonilla on 01-22-2022 RBC (Bld) [#/Vol] 3.24 10*6/uL 3.60-5.00 [facility] Serum or plasma alanine boo otransferase measurement without P-5'-P (enzymatic activiOrdered By: Issa Bonilla on 01-22-2022 ALT No additional P-5'-P [Catalytic activity/Vol] 26 U/L 10-60 [facility] Serum or plasma albumin/glob ulin mass ratioOrdered By: Issa Bonilla on 01-22-2022 Albumin/Globulin [Mass ratio] 0.9 {ratio} [facility] Serum or plasma alkaline jamie sphatase measurement (enzymatic activity/volume)Ordered By: Issa Bonilla on 01-22-2022 ALP [Catalytic activity/Vol] 49 U/L 32-92 [facility] Serum or plasma anion gap de terminationOrdered By: Issa Bonilla on 01-22-2022 Anion gap [Moles/Vol] 16.3 mmol/L 6.0-15.0 [facility] Serum or plasma aspartate am inotransferase measurement (enzymatic activity/volume)Ordered By: Issa Bonilla on 01-22-2022 AST [Catalytic activity/Vol] 18 U/L 10-42 [facility] Serum or plasma calcium jarrett urement (mass/volume)Ordered By: Issa Bonilla on 01-22-2022 Calcium [Mass/Vol] 9.5 mg/dL 8.2-10.2 [facility] Serum or plasma chloride bubba surement (moles/volume)Ordered By: Issa Bonilla on 01-22-2022 Chloride [Moles/Vol] 94 mmol/L 95-114 [facility] Serum or plasma glucose jarrett urement (mass/volume)Ordered By: Issa Bonilla on 01-22-2022 Glucose [Mass/Vol] 275 mg/dL 70-100 [facility] Comment on above: ADA recommended refe rence rangeRandom Glucose Reference Range is dependent on time and content of last meal. Glucose of more than 200 mg/dL in a nonstressed, ambulatory subject supports the diagnosis of Diabetes Mellitus. Serum or plasma potassium me asurement (moles/volume)Ordered By: Issa Bonilla on 01-22-2022 Potassium [Moles/Vol] 4.7 mmol/L 3.5-5.1 [facility] Serum or plasma sodium measu rement (moles/volume)Ordered By: Issa Bonilla on 01-22-2022 Sodium [Moles/Vol] 131 mmol/L 136-146 [facility] Serum or plasma total biliru bin measurement (mass/volume)Ordered By: Issa Bonilla on 01-22-2022 Bilirubin [Mass/Vol] 0.3 mg/dL 0.3-1.2 [facility] Serum or plasma total carbon dioxide measurement (moles/volume)Ordered By: Issa Bonilla on 01-22-2022 CO2 [Moles/Vol] 25.4 mmol/L 22.0-30.0 [facility] Serum or plasma urea nitroge n measurement (mass/volume)Ordered By: Issa Bonilla on 01-22-2022 Urea nitrogen [Mass/Vol] 43 mg/dL 9- [facility] Troponin I High Sensitivityo n 01-22-2022 Troponin I High Sensitivity 44 pg/mL High 0- [facility] Comment on above: Result Comment: PERF ORMED BY: [place] [address] PATHOLOGIST [employer] ROSEMARIE SOLANO M.D. Performed By: #### C MP, CBC, HS TROP, BNP #### [address] Troponin I.cardiac [Mass/vol ume] in Serum or Plasma by High sensitivity methodOrdered By: Issa Bonilla on 01-22-2022 Troponin I.cardiac High sensitivity method [Mass/Vol] 44 pg/mL 0-15 [facility] Basophil percentageOrdered B y: Dr. Louise on 12-29-2021 Basophil percentage 2.7 mg/dL 2.5-4.9 [facility] Chloride [Moles/Vol] 99 mmol/L 98-[address] [facility] Glucose [Mass/Vol] 192 mg/dL 74-106 [facility] Comment on above: Fasting Glucose resu lt greater than or equal to 126 mg/dL suggests DIABETES MELLITUS per A.D.A. criteria. Potassium [Moles/Vol] 5.3 mmol/L 3.5-5.1 [facility] Sodium [Moles/Vol] 132 mmol/L 136-145 [facility] Blood hemoglobin measurement (mass/volume)Ordered By: Dr. Louise on 12-29-2021 Hemoglobin (Bld) [Mass/Vol] 10.2 g/dL 12.0-15.0 [facility] Hematocrit Auto (Bld) [Volum e fraction]Ordered By: Dr. Louise on 12-29-2021 Hematocrit (Bld) [Volume fraction] 31.1 % 37-47 [facility] Laboratory - Chemistry and C hemistry - challengeOrdered By: Dr. Louise on 12-29-2021 CO2 [Moles/Vol] 27.0 mmol/L 21.0-32.0 [facility] Urea nitrogen/Creatinine [Mass ratio] 20.2 mg/mg 10- [facility] No Panel InformationOrdered By: Dr. Louise on 12-29-2021 Estimated GFR (MDRD) Amer 34 mL/min >60 [facility] Comment on above: GFR Calc Estimated GFR (MDRD) Non-Af Amer 28 mL/min >60 [facility] Comment on above: Non- GFR Calc Serum or plasma albumin jarrett urement (mass/volume)Ordered By: Dr. Louise on 12-29-2021 Albumin [Mass/Vol] 3.1 g/dL 3.2-5.0 [facility] Serum or plasma calcium jarrett urement (mass/volume)Ordered By: Dr. Louise on 12-29-2021 Calcium [Mass/Vol] 9.8 mg/dL 8.5-10.1 [facility] Serum or plasma creatinine m easurement (mass/volume)Ordered By: Dr. Louise on 12-29-2021 Creatinine [Mass/Vol] 1.83 mg/dL 0.55-1.02 [facility] Comment on above: The validity of the calculated GFR & GFRAA in patients over 70 years has not been determined. Clinical correlation is essential. Serum or plasma urea nitroge n measurement (mass/volume)Ordered By: Dr. Louise on 12-29-2021 Urea nitrogen [Mass/Vol] 37 mg/dL 7-18 [facility] Absolute lymphocyte countOrd ered By: Dr. Saenz on 12-27-2021 Lymphocytes Auto (Unsp spec) [#/Vol] 1.13 10*3/uL 0.83-4.51 [facility] Basophil percentageOrdered B y: Dr. Saenz on 12-27-2021 Basophils/100 WBC (Bld) 0.3 % 0-1 [facility] Chloride [Moles/Vol] 92 mmol/L 98-107 [facility] Eosinophils/100 WBC (Bld) 2.9 % 0-5 [facility] Glucose [Mass/Vol] 168 mg/dL 74-106 [facility] Comment on above: Fasting Glucose resu lt greater than or equal to 126 mg/dL suggests DIABETES MELLITUS per A.D.A. criteria. Neutrophils (Bld) [#/Vol] 6.5 10*3/uL 2.0-7.7 [facility] Neutrophils/100 WBC (Bld) 75.1 % 47-70 [facility] Potassium [Moles/Vol] 5.2 mmol/L 3.5-5.1 [facility] Sodium [Moles/Vol] 123 mmol/L 136-145 [facility] WBC (Bld) [#/Vol] 8.6 10*3/uL 4.4-11.0 [facility] Blood erythrocytes count (nu mber/volume)Ordered By: Dr. Saenz on 12-27-2021 RBC (Bld) [#/Vol] 3.01 10*6/uL 4.2-5.4 [facility] Blood hemoglobin measurement (mass/volume)Ordered By: Dr. Saenz on 12-27-2021 Hemoglobin (Bld) [Mass/Vol] 9.5 g/dL 12.0-15.0 [facility] Blood lymphocytes/100 leukoc ytesOrdered By: Dr. Saenz on 12-27-2021 Lymphocytes/100 WBC (Bld) 13.1 % 19-41 [facility] Blood monocytes/100 leukocyt esOrdered By: Dr. Saenz on 12-27-2021 Monocytes/100 WBC (Bld) 7.1 % 0-10 [facility] Blood platelet mean volumeOr dered By: Dr. Saenz on 12-27-2021 Platelet mean volume (Bld) [Entitic vol] 9.1 fL 6.2-12.0 [facility] Determination of erythrocyte mean corpuscular volume (MCV)Ordered By: Dr. Saenz on 12-27-2021 MCV (RBC) [Entitic vol] 95.0 fL 81-99 [facility] Glucose Glucometer (BldC) [M ass/Vol]Ordered By: Dr. Maguire on 12-27-2021 Glucose [Mass/Vol] 134 mg/dL 74-106 [facility] Comment on above: MANAGEMENT OF PATIEN T CARE PER NURSING PROTOCOL Hematocrit Auto (Bld) [Volum e fraction]Ordered By: Dr. Saenz on 12-27-2021 Hematocrit (Bld) [Volume fraction] 28.6 % 37-47 [facility] Laboratory - Chemistry and C hemistry - challengeOrdered By: Dr. Saenz on 12-27-2021 CO2 [Moles/Vol] 24.0 mmol/L 21.0-32.0 [facility] Urea nitrogen/Creatinine [Mass ratio] 21.1 mg/mg 10-20 [facility] Laboratory - CoagulationOrde red By: Dr. Saenz on 12-27-2021 aPTT Coag (Bld) [Time] 28.7 s 24.1-36.2 [facility] Laboratory - Hematology and Cell countsOrdered By: Dr. Saenz on 12-27-2021 Erythrocyte distribution width (RBC) [Entitic vol] 47.7 fL 35.1-43.9 [facility] Erythrocyte distribution width (RBC) [Ratio] 13.9 % 11.6-14.6 [facility] Immature granulocytes/100 WBC (Bld) 1.500 % 0.0-0.9 [facility] Comment on above: IG% - Immature Granu locytes (promyelocytes, myelocytes and metamyelocytes) > 1% indicates that a LEFT SHIFT is Present. MCH (RBC) [Entitic mass] 31.6 pg 27.0-32.0 [facility] Nucleated RBC/100 WBC (Bld) [Ratio] 0 % 0-5 [facility] MCHC Auto (RBC) [Mass/Vol]Or dered By: Dr. Saenz on 12-27-2021 MCHC (RBC) [Mass/Vol] 33.2 g/dL 32-36 [facility] No Panel InformationOrdered By: Dr. Saenz on 12-27-2021 Estimated Creatinine Clearance Calc 20.51 ml/min [facility] Estimated GFR (MDRD) Amer 33 mL/min >60 [facility] Comment on above: GFR Calc Estimated GFR (MDRD) Non-Af Amer 27 mL/min >60 [facility] Comment on above: Non- GFR Calc Platelets bldOrdered By: Dr. Saenz on 12-27-2021 Platelets (Bld) [#/Vol] 229 10*3/uL 150-450 [facility] Serum or plasma calcium jarrett urement (mass/volume)Ordered By: Dr. Saenz on 12-27-2021 Calcium [Mass/Vol] 9.2 mg/dL 8.5-10.1 [facility] Serum or plasma creatinine m easurement (mass/volume)Ordered By: Dr. Saenz on 12-27-2021 Creatinine [Mass/Vol] 1.90 mg/dL 0.55-1.02 [facility] Comment on above: The validity of the calculated GFR & GFRAA in patients over 70 years has not been determined. Clinical correlation is essential. Serum or plasma urea nitroge n measurement (mass/volume)Ordered By: Dr. Saenz on 12-27-2021 Urea nitrogen [Mass/Vol] 40 mg/dL 7-18 [facility] Thin prep Papanicolaou smear with manual screeningOrdered By: Dr. Saenz on 12-27-2021 Thin prep Papanicolaou smear with manual screening 7 5-15 [facility] Whole blood hemoglobin A1c/t otal hemoglobin ratio (mass fraction)Ordered By: Dr. Saenz on 12-27-2021 HbA1c (Bld) [Mass fraction] 7.0 % 3.8-5.6 [facility] Comment on above: Normal < 5.7 % Predi abetic 5.7 - 6.4 % Diabetic >or= 6.5 % Please note range changes. INR in Blood by Coagulation assayOrdered By: Dr. Ferris on 12-26-2021 INR Coag (Bld) [Relative time] 1.1 {INR} [facility] Laboratory - CoagulationOrde red By: Dr. Ferris on 12-26-2021 PT Coag (PPP) [Time] 13.8 s 11.7-14.9 [facility] Absolute lymphocyte countOrd ered By: Dr. Bill on 12-22-2021 Lymphocytes Auto (Unsp spec) [#/Vol] 1.20 10*3/uL 0.83-4.51 [facility] Basophil percentageOrdered B y: Dr. Bill on 12-22-2021 Basophils/100 WBC (Bld) 0.3 % 0-1 [facility] Bilirubin [Mass/Vol] 0.30 mg/dL 0.20-1.00 [facility] Comment on above: For patients on eltr ombopag therapy, use of Dimension [place] TBIL is not recommended. Chloride [Moles/Vol] 103 mmol/L 98-107 [facility] Eosinophils/100 WBC (Bld) 2.6 % 0-5 [facility] Glucose [Mass/Vol] 130 mg/dL 74-106 [facility] Comment on above: Fasting Glucose resu lt greater than or equal to 126 mg/dL suggests DIABETES MELLITUS per A.D.A. criteria. Neutrophils (Bld) [#/Vol] 6.7 10*3/uL 2.0-7.7 [facility] Neutrophils/100 WBC (Bld) 75.5 % 47-70 [facility] Potassium [Moles/Vol] 5.3 mmol/L 3.5-5.1 [facility] Protein [Mass/Vol] 6.3 g/dL 6.4-8.2 [facility] Sodium [Moles/Vol] 133 mmol/L 136-145 [facility] WBC (Bld) [#/Vol] 8.9 10*3/uL 4.4-11.0 [facility] Blood erythrocytes count (nu mber/volume)Ordered By: Dr. Bill on 12-22-2021 RBC (Bld) [#/Vol] 3.14 10*6/uL 4.2-5.4 [facility] Blood hemoglobin measurement (mass/volume)Ordered By: Dr. Bill on 12-22-2021 Hemoglobin (Bld) [Mass/Vol] 9.8 g/dL 12.0-15.0 [facility] Blood lymphocytes/100 leukoc ytesOrdered By: Dr. Bill on 12-22-2021 Lymphocytes/100 WBC (Bld) 13.5 % 19-41 [facility] Blood monocytes/100 leukocyt esOrdered By: Dr. Bill on 12-22-2021 Monocytes/100 WBC (Bld) 7.4 % 0-10 [facility] Blood platelet mean volumeOr dered By: Dr. Bill on 12-22-2021 Platelet mean volume (Bld) [Entitic vol] 9.4 fL 6.2-12.0 [facility] Determination of erythrocyte mean corpuscular volume (MCV)Ordered By: Dr. Bill on 12-22-2021 MCV (RBC) [Entitic vol] 99.0 fL 81-99 [facility] Glucose Glucometer (BldC) [M ass/Vol]Ordered By: Dr. Rockwell on 12-22-2021 Glucose [Mass/Vol] 180 mg/dL 74-106 [facility] Comment on above: MANAGEMENT OF PATIEN T CARE PER NURSING PROTOCOL Hematocrit Auto (Bld) [Volum e fraction]Ordered By: Dr. Bill on 12-22-2021 Hematocrit (Bld) [Volume fraction] 31.1 % 37-47 [facility] Laboratory - Chemistry and C hemistry - challengeOrdered By: Dr. Bill on 12-22-2021 ALP [Catalytic activity/Vol] 48 U/L 45-117 [facility] ALT [Catalytic activity/Vol] 30 U/L 13-56 [facility] CO2 [Moles/Vol] 22.0 mmol/L 21.0-32.0 [facility] Globulin (S) [Mass/Vol] 3.4 g/dL 2.2-4.2 [facility] Urea nitrogen/Creatinine [Mass ratio] 22.3 mg/mg 10-20 [facility] Laboratory - Hematology and Cell countsOrdered By: Dr. Bill on 12-22-2021 Erythrocyte distribution width (RBC) [Entitic vol] 49.9 fL 35.1-43.9 [facility] Erythrocyte distribution width (RBC) [Ratio] 13.8 % 11.6-14.6 [facility] Immature granulocytes/100 WBC (Bld) 0.700 % 0.0-0.9 [facility] Comment on above: IG% - Immature Granu locytes (promyelocytes, myelocytes and metamyelocytes) > 1% indicates that a LEFT SHIFT is Present. MCH (RBC) [Entitic mass] 31.2 pg 27.0-32.0 [facility] Nucleated RBC/100 WBC (Bld) [Ratio] 0 % 0-5 [facility] MCHC Auto (RBC) [Mass/Vol]Or dered By: Dr. Bill on 12-22-2021 MCHC (RBC) [Mass/Vol] 31.5 g/dL 32-36 [facility] No Panel InformationOrdered By: Dr. Bill on 12-22-2021 Estimated Creatinine Clearance Calc 20.19 ml/min [facility] Estimated GFR (MDRD) Amer 32 mL/min >60 [facility] Comment on above: GFR Calc Estimated GFR (MDRD) Non-Af Amer 27 mL/min >60 [facility] Comment on above: Non- GFR Calc Platelets bldOrdered By: Dr. Bill on 12-22-2021 Platelets (Bld) [#/Vol] 221 10*3/uL 150-450 [facility] Serum or plasma albumin jarrett urement (mass/volume)Ordered By: Dr. Bill on 12-22-2021 Albumin [Mass/Vol] 2.9 g/dL 3.2-5.0 [facility] Serum or plasma albumin/glob ulin mass ratioOrdered By: Dr. Bill on 12-22-2021 Albumin/Globulin [Mass ratio] 0.9 {ratio} 0.9-2.4 [facility] Serum or plasma calcium jarrett urement (mass/volume)Ordered By: Dr. Bill on 12-22-2021 Calcium [Mass/Vol] 9.0 mg/dL 8.5-10.1 [facility] Serum or plasma creatinine m easurement (mass/volume)Ordered By: Dr. Bill on 12-22-2021 Creatinine [Mass/Vol] 1.93 mg/dL 0.55-1.02 [facility] Comment on above: The validity of the calculated GFR & GFRAA in patients over 70 years has not been determined. Clinical correlation is essential. Serum or plasma urea nitroge n measurement (mass/volume)Ordered By: Dr. Bill on 12-22-2021 Urea nitrogen [Mass/Vol] 43 mg/dL 7-18 [facility] Thin prep Papanicolaou smear with manual screeningOrdered By: Dr. Bill on 12-22-2021 Thin prep Papanicolaou smear with manual screening 18 U/L 15-37 [facility] Thin prep Papanicolaou smear with manual screening 8 5-15 [facility] Whole blood hemoglobin A1c/t otal hemoglobin ratio (mass fraction)Ordered By: Dr. Bill on 12-22-2021 HbA1c (Bld) [Mass fraction] 6.8 % 3.8-5.6 [facility] Comment on above: Normal < 5.7 % Predi abetic 5.7 - 6.4 % Diabetic >or= 6.5 % Please note range changes. Absolute lymphocyte counton 12-21-2021 Lymphocytes Auto (Unsp spec) [#/Vol] 1.33 10*3/uL 0.83-4.51 [facility] Work Phone: Basophil percentageon 2021 Basophils/100 WBC (Bld) 0.3 % 0-1 [facility] Work Phone: Chloride [Moles/Vol] 106 mmol/L 98-107 [facility] Work Phone: Eosinophils/100 WBC (Bld) 1.9 % 0-5 [facility] Work Phone: Glucose [Mass/Vol] 55 mg/dL 74-106 [facility] Work Phone: Neutrophils (Bld) [#/Vol] 5.7 10*3/uL 2.0-7.7 [facility] Work Phone: Neutrophils/100 WBC (Bld) 73.3 % 47-70 [facility] Work Phone: Potassium [Moles/Vol] 4.8 mmol/L 3.5-5.1 [facility] Work Phone: Sodium [Moles/Vol] 136 mmol/L 136-145 [facility] Work Phone: WBC (Bld) [#/Vol] 7.7 10*3/uL 4.4-11.0 [facility] Work Phone: Blood erythrocytes count (nu mber/volume)on 12-21-2021 RBC (Bld) [#/Vol] 3.30 10*6/uL 4.2-5.4 [facility] Work Phone: Blood hemoglobin measurement (mass/volume)on 12-21-2021 Hemoglobin (Bld) [Mass/Vol] 10.3 g/dL 12.0-15.0 [facility] Work Phone: Blood lymphocytes/100 leukoc yteson 12-21-2021 Lymphocytes/100 WBC (Bld) 17.3 % 19-41 [facility] Work Phone: Blood monocytes/100 leukocyt eson 12-21-2021 Monocytes/100 WBC (Bld) 6.7 % 0-10 [facility] Work Phone: Blood platelet mean volumeon 12-21-2021 Platelet mean volume (Bld) [Entitic vol] 8.9 fL 6.2-12.0 [facility] Work Phone: Determination of erythrocyte mean corpuscular volume (MCV)on 12-21-2021 MCV (RBC) [Entitic vol] 98.2 fL 81-99 [facility] Work Phone: Glucose Glucometer (BldC) [M ass/Vol]on 12-21-2021 Glucose [Mass/Vol] 132 mg/dL 74-106 [facility] Work Phone: Comment on above: MANAGEMENT OF PATIEN T CARE PER NURSING PROTOCOL Hematocrit Auto (Bld) [Volum e fraction]on 12-21-2021 Hematocrit (Bld) [Volume fraction] 32.4 % 37-47 [facility] Work Phone: Laboratory - Chemistry and C hemistry - challengeon 12-21-2021 CO2 [Moles/Vol] 25.0 mmol/L 21.0-32.0 [facility] Work Phone: Urea nitrogen/Creatinine [Mass ratio] 24.3 mg/mg 10-20 [facility] Work Phone: Laboratory - Hematology and Cell countson 12-21-2021 Erythrocyte distribution width (RBC) [Entitic vol] 49.1 fL 35.1-43.9 [facility] Work Phone: Erythrocyte distribution width (RBC) [Ratio] 13.8 % 11.6-14.6 [facility] Work Phone: Immature granulocytes/100 WBC (Bld) 0.500 % 0.0-0.9 [facility] Work Phone: Comment on above: IG% - Immature Granu locytes (promyelocytes, myelocytes and metamyelocytes) > 1% indicates that a LEFT SHIFT is Present. MCH (RBC) [Entitic mass] 31.2 pg 27.0-32.0 [facility] Work Phone: Nucleated RBC/100 WBC (Bld) [Ratio] 0 % 0-5 [facility] Work Phone: MCHC Auto (RBC) [Mass/Vol]on 12-21-2021 MCHC (RBC) [Mass/Vol] 31.8 g/dL 32-36 [facility] Work Phone: No Panel Informationon 12-21 Estimated Creatinine Clearance Calc 21.07 ml/min [facility] Work Phone: Estimated GFR (MDRD) Amer 34 mL/min >60 [facility] Work Phone: Comment on above: GFR Calc Estimated GFR (MDRD) Non-Af Amer 28 mL/min >60 [facility] Work Phone: Comment on above: Non- GFR Calc Platelets bldon 12-21-2021 Platelets (Bld) [#/Vol] 212 10*3/uL 150-450 [facility] Work Phone: Serum or plasma calcium jarrett urement (mass/volume)on 12-21-2021 Calcium [Mass/Vol] 9.7 mg/dL 8.5-10.1 [facility] Work Phone: Serum or plasma creatinine m easurement (mass/volume)on 12-21-2021 Creatinine [Mass/Vol] 1.85 mg/dL 0.55-1.02 [facility] Work Phone: Comment on above: The validity of the calculated GFR & GFRAA in patients over 70 years has not been determined. Clinical correlation is essential. Serum or plasma urea nitroge n measurement (mass/volume)on 12-21-2021 Urea nitrogen [Mass/Vol] 45 mg/dL 7-18 [facility] Work Phone: Thin prep Papanicolaou smear with manual screeningon 12-21-2021 Thin prep Papanicolaou smear with manual screening 5 5-15 [facility] Work Phone: US LEG VEIN DVT UNL VAS LABo n 12-20-2021 [facility] XR Tibia and Fibula - right AP and Lateralon 12-20-2021 IMPRESSION: 1. No radiographic evidence of acute osseous injury. 2. Postsurgical changes in the right ankle as described. 3. Hardware fracture of the superior screw transfixing the calcaneonavicular joint. Cinder Man: [facility] Transcribe Date/Time: Dec 20 2021 8:22A Dictated by : YAMIL STARR MD This examination was interpreted and the report reviewed and electronically signed by: YAMIL STARR MD on Dec 20 2021 9:04AM [facility] DIVISION OF RADIOLOGY * * *Final Report* * * DATE OF EXAM: Dec 19 2021 2:19PM WOX 5266 - XR TIBIA FIBULA 2V AP/LAT RT / PROCEDURE REASON: Acute leg pain, right * * * * Physician Interpretation * * * * CLINICAL INDICATION: Pain TECHNIQUE: AP and lateral radiographs of the right tibia/fibula COMPARISON: None available FINDINGS: Osseous demineralization most pronounced around the ankle. No acute fracture or dislocation. Lateral surgical plate and multiple screw device transfixes the distal fibula in near anatomic alignment without radiographic evidence of hardware complications. Wires and 2 screws as well as a pin transfix the medial malleolus in near anatomic alignment without radiographic evidence of hardware complications. Postsurgical changes from fixation of the calcaneonavicular joint with a surgical plate and multiple screw device with evidence of hardware fracture of the superior screw. Degenerative changes about the tibiotalar joint with subchondral sclerosis and joint space narrowing. Dorsal calcaneal enthesophyte. Atherosclerotic calcification of the vasculature. See separate dictation of the same day right knee radiograph regarding right knee osteoarthritis which is reported under separate cover. DIVISION OF RADIOLOGY Provider, [facility] - 12/20/2021 * * *Final Report* * * DATE OF EXAM: Dec 19 2021 2:19PM WOX 5266 - XR TIBIA FIBULA 2V AP/LAT RT / PROCEDURE REASON: Acute leg pain, right * * * * Physician Interpretation * * * * CLINICAL INDICATION: Pain TECHNIQUE: AP and lateral radiographs of the right tibia/fibula COMPARISON: None available FINDINGS: Osseous demineralization most pronounced around the ankle. No acute fracture or dislocation. Lateral surgical plate and multiple screw device transfixes the distal fibula in near anatomic alignment without radiographic evidence of hardware complications. Wires and 2 screws as well as a pin transfix the medial malleolus in near anatomic alignment without radiographic evidence of hardware complications. Postsurgical changes from fixation of the calcaneonavicular joint with a surgical plate and multiple screw device with evidence of hardware fracture of the superior screw. Degenerative changes about the tibiotalar joint with subchondral sclerosis and joint space narrowing. Dorsal calcaneal enthesophyte. Atherosclerotic calcification of the vasculature. See separate dictation of the same day right knee radiograph regarding right knee osteoarthritis which is reported under separate cover. IMPRESSION IMPRESSION: 1. No radiographic evidence of acute osseous injury. 2. Postsurgical changes in the right ankle as described. 3. Hardware fracture of the superior screw transfixing the calcaneonavicular joint. Cinder Man: ABBEY Transcribe Date/Time: Dec 20 2021 8:22A Dictated by : YAMIL STARR MD This examination was interpreted and the report reviewed and electronically signed by: YAMIL STARR MD on Oct 5 2022 9:04AM EST [facility] Basophil percentageOrdered B y: Dr. Turpin on 12-19-2021 Chloride [Moles/Vol] 105 mmol/L 98-107 [facility] Glucose [Mass/Vol] 92 mg/dL 74-106 [facility] Potassium [Moles/Vol] 4.8 mmol/L 3.5-5.1 [facility] Sodium [Moles/Vol] 136 mmol/L 136-145 [facility] WBC (Bld) [#/Vol] 9.6 10*3/uL 4.4-11.0 [facility] Blood erythrocytes count (nu mber/volume)Ordered By: Dr. Turpin on 12-19-2021 RBC (Bld) [#/Vol] 3.46 10*6/uL 4.2-5.4 [facility] Blood hemoglobin measurement (mass/volume)Ordered By: Dr. Turpin on 12-19-2021 Hemoglobin (Bld) [Mass/Vol] 10.8 g/dL 12.0-15.0 [facility] Blood platelet mean volumeOr dered By: Dr. Turpin on 12-19-2021 Platelet mean volume (Bld) [Entitic vol] 9.5 fL 6.2-12.0 [facility] Determination of erythrocyte mean corpuscular volume (MCV)Ordered By: Dr. Turpin on 12-19-2021 MCV (RBC) [Entitic vol] 97.1 fL 81-99 [facility] Hematocrit Auto (Bld) [Volum e fraction]Ordered By: Dr. Turpin on 12-19-2021 Hematocrit (Bld) [Volume fraction] 33.6 % 37-47 [facility] Laboratory - Chemistry and C hemistry - challengeOrdered By: Dr. Turpin on 12-19-2021 CO2 [Moles/Vol] 23.0 mmol/L 21.0-32.0 [facility] Urea nitrogen/Creatinine [Mass ratio] 26.6 mg/mg 10-20 [facility] Laboratory - Hematology and Cell countsOrdered By: Dr. Turpin on 12-19-2021 Erythrocyte distribution width (RBC) [Entitic vol] 49.4 fL 35.1-43.9 [facility] Erythrocyte distribution width (RBC) [Ratio] 13.9 % 11.6-14.6 [facility] MCH (RBC) [Entitic mass] 31.2 pg 27.0-32.0 [facility] MCHC Auto (RBC) [Mass/Vol]Or dered By: Dr. Turpin on 12-19-2021 MCHC (RBC) [Mass/Vol] 32.1 g/dL 32-36 [facility] No Panel Informationon 12-19 Radiology Study observation (narrative) [facility] No Panel InformationOrdered By: Dr. Turpin on 12-19-2021 D-Dimer Quantitative (PE/DVT) 0.57 FEU/ug/m 0.27-0.49 [facility] Comment on above: D-Dimer ELEVATED (>0 .49): Additional studies and clinicalassessments are indicated to conclude diagnosis of:Deep Vein Thrombosis (DVT) or Pulmonary Embolism (PE) Estimated GFR (MDRD) Amer 30 mL/min >60 [facility] Comment on above: GFR Calc Estimated GFR (MDRD) Non-Af Amer 25 mL/min >60 [facility] Comment on above: Non- GFR Calc Platelets bldOrdered By: Dr. Turpin on 12-19-2021 Platelets (Bld) [#/Vol] 215 10*3/uL 150-450 [facility] Serum or plasma calcium jarrett urement (mass/volume)Ordered By: Dr. Turpin on 12-19-2021 Calcium [Mass/Vol] 10.4 mg/dL 8.5-10.1 [facility] Serum or plasma creatinine m easurement (mass/volume)Ordered By: Dr. Turpin on 12-19-2021 Creatinine [Mass/Vol] 2.07 mg/dL 0.55-1.02 [facility] Comment on above: The validity of the calculated GFR & GFRAA in patients over 70 years has not been determined. Clinical correlation is essential. Serum or plasma urea nitroge n measurement (mass/volume)Ordered By: Dr. Turpin on 12-19-2021 Urea nitrogen [Mass/Vol] 55 mg/dL 7-18 [facility] Thin prep Papanicolaou smear with manual screeningOrdered By: Dr. Turpin on 12-19-2021 Thin prep Papanicolaou smear with manual screening 8 5-15 [facility] XR KNEE GENERAL 4V AP BOTH/P A BOTH/LAT/MERC RIGHTon 12-19-2021 [facility] XR Knee - right 4 Viewson IMPRESSION: Degenerative changes as detailed above with a small suprapatellar joint effusion. Cinder Man: PSCB Transcribe Date/Time: Dec 19 2021 2:36P Dictated by : ALEXANDRA WILSON MD This examination was interpreted and the report reviewed and electronically signed by: ALEXANDRA WILSON MD on Dec 19 2021 2:39PM [facility] DIVISION OF RADIOLOGY * * *Final Report* * * DATE OF EXAM: Dec 19 2021 2:19PM WOX 5203 - XR KNEE 4V AP/PA BOTH+LAT/LAURI RT / PROCEDURE REASON: Acute leg pain, right * * * * Physician Interpretation * * * * EXAMINATION: XR KNEE 4V AP/PA BOTH+LAT/LAURI RT HISTORY: Diffuse right knee and lateral lower leg pain x 1 month without injury. Acute leg pain, right. TECHNIQUE: XR KNEE 4V AP/PA BOTH+LAT/LAURI RT Laterality: RIGHT Number of different views (projections): 4 M: XB_1 COMPARISON: There are no prior relevant examinations available for comparison within the [facility] Imaging Archives. RESULT: 4 views of the right knee demonstrate osteopenia and degenerative change with severe [id number] narrowing of the medial tibiofemoral joint compartment. There is prominent medial marginal spurring and associated varus deformity. Intercondylar and patellar spurring is present with uniform moderate narrowing of the right patellofemoral joint space. Lateral view demonstrates small suprapatellar joint effusion. DIVISION OF RADIOLOGY Provider, Sary Jeremy Marr - 12/19/2021 * * *Final Report* * * DATE OF EXAM: Dec 19 2021 2:19PM WOX 5203 - XR KNEE 4V AP/PA BOTH+LAT/LAURI RT / PROCEDURE REASON: Acute leg pain, right * * * * Physician Interpretation * * * * EXAMINATION: XR KNEE 4V AP/PA BOTH+LAT/LAURI RT HISTORY: Diffuse right knee and lateral lower leg pain x 1 month without injury. Acute leg pain, right. TECHNIQUE: XR KNEE 4V AP/PA BOTH+LAT/LAURI RT Laterality: RIGHT Number of different views (projections): 4 M: XB_1 COMPARISON: There are no prior relevant examinations available for comparison within the [facility] Imaging Archives. RESULT: 4 views of the right knee demonstrate osteopenia and degenerative change with severe [id number]-[id number] narrowing of the medial tibiofemoral joint compartment. There is prominent medial marginal spurring and associated varus deformity. Intercondylar and patellar spurring is present with uniform moderate narrowing of the right patellofemoral joint space. Lateral view demonstrates small suprapatellar joint effusion. IMPRESSION IMPRESSION: Degenerative changes as detailed above with a small suprapatellar joint effusion. Cinder Man: ABBEY Transcribe Date/Time: Dec 19 2021 2:36P Dictated by : ALEXANDRA WILSON MD This examination was interpreted and the report reviewed and electronically signed by: ALEXANDRA WILSON MD on Dec 19 2021 2:39PM EST [facility] XR Knee - right 4 ViewsOrder ed By: [facility] Provider on 12-19-2021 [facility] Basophil percentageon 2021 Basophil percentage 3.4 mg/dL 2.5-4.9 [facility]: Chloride [Moles/Vol] 105 mmol/L 98-107 [facility]: Glucose [Mass/Vol] 125 mg/dL 74-106 [facility] Work Phone: Comment on above: Fasting Glucose resu lt from 100 to 125 mg/dL suggests IMPAIRED HOMEOSTASIS per A.D.A. criteria. Potassium [Moles/Vol] 4.6 mmol/L 3.5-5.1 [facility] Work Phone: Sodium [Moles/Vol] 137 mmol/L 136-145 [facility] Work Phone: Blood hemoglobin measurement (mass/volume)on 12-01-2021 Hemoglobin (Bld) [Mass/Vol] 10.2 g/dL 12.0-15.0 [facility] Work Phone: Hematocrit Auto (Bld) [Volum e fraction]on 12-01-2021 Hematocrit (Bld) [Volume fraction] 31.7 % 37-47 [facility] Work Phone: Laboratory - Chemistry and C hemistry - challengeon 12-01-2021 CO2 [Moles/Vol] 27.0 mmol/L 21.0-32.0 [facility] Work Phone: Urea nitrogen/Creatinine [Mass ratio] 23.2 mg/mg 10-20 [facility] Work Phone: No Panel Informationon 12-01 Estimated GFR (MDRD) Amer 31 mL/min >60 [facility] Work Phone: Comment on above: GFR Calc Estimated GFR (MDRD) Non-Af Amer 25 mL/min >60 [facility] Work Phone: Comment on above: Non- GFR Calc Serum or plasma albumin jarrett urement (mass/volume)on 12-01-2021 Albumin [Mass/Vol] 3.3 g/dL 3.2-5.0 [facility] Work Phone: Serum or plasma calcium jarrett urement (mass/volume)on 12-01-2021 Calcium [Mass/Vol] 9.5 mg/dL 8.5-10.1 [facility] Work Phone: Serum or plasma creatinine m easurement (mass/volume)on 12-01-2021 Creatinine [Mass/Vol] 2.03 mg/dL 0.55-1.02 [facility] Work Phone: Comment on above: The validity of the calculated GFR & GFRAA in patients over 70 years has not been determined. Clinical correlation is essential. Serum or plasma urea nitroge n measurement (mass/volume)on 12-01-2021 Urea nitrogen [Mass/Vol] 47 mg/dL 7-18 [facility] Work Phone: Basophil percentageon 2021 Basophil percentage 3.4 mg/dL 2.5-4.9 [facility] Work Phone: Chloride [Moles/Vol] 106 mmol/L 98-[address] [facility] Work Phone: Glucose [Mass/Vol] 142 mg/dL 74-106 [facility] Work Phone: Comment on above: Fasting Glucose resu lt greater than or equal to 126 mg/dL suggests DIABETES MELLITUS per A.D.A. criteria. Potassium [Moles/Vol] 4.4 mmol/L 3.5-5.1 [facility] Work Phone: Sodium [Moles/Vol] 139 mmol/L 136-145 [facility] Work Phone: Blood hemoglobin measurement (mass/volume)on 11-03-2021 Hemoglobin (Bld) [Mass/Vol] 10.7 g/dL 12.0-15.0 [facility] Work Phone: Hematocrit Auto (Bld) [Volum e fraction]on 11-03-2021 Hematocrit (Bld) [Volume fraction] 33.6 % 37-47 [facility] Work Phone: Iron measurement (mass/mass) on 11-03-2021 Iron (Unsp spec) [Mass/Mass] 71 ug/dL 50-170 [facility] Work Phone: Laboratory - Chemistry and C hemistry - challengeon 11-03-2021 CO2 [Moles/Vol] 27.0 mmol/L 21.0-32.0 [facility] Work Phone: Urea nitrogen/Creatinine [Mass ratio] 19.9 mg/mg 10-20 [facility] Work Phone: No Panel Informationon 11-03 Estimated GFR (MDRD) Amer 31 mL/min >60 [facility] Work Phone: Comment on above: GFR Calc Estimated GFR (MDRD) Non-Af Amer 26 mL/min >60 [facility] Work Phone: Comment on above: Non- GFR Calc Total Iron Binding Capacity 336 ug/dL 250-450 [facility] Work Phone: Serum or plasma albumin jarrett urement (mass/volume)on 11-03-2021 Albumin [Mass/Vol] 3.3 g/dL 3.2-5.0 [facility] Work Phone: Serum or plasma calcium jarrett urement (mass/volume)on 11-03-2021 Calcium [Mass/Vol] 10.4 mg/dL 8.5-10.1 [facility] Work Phone: Serum or plasma creatinine m easurement (mass/volume)on 11-03-2021 Creatinine [Mass/Vol] 2.01 mg/dL 0.55-1.02 [facility] Work Phone: Comment on above: The validity of the calculated GFR & GFRAA in patients over 70 years has not been determined. Clinical correlation is essential. Serum or plasma ferritin bubba surement (mass/volume)on 11-03-2021 Ferritin [Mass/Vol] 54 ng/mL 8- [facility] Work Phone: Serum or plasma iron saturat ion measurement (mass fraction)on 11-03-2021 Iron saturation [Mass fraction] 21.1 % 15.0-55.0 [facility] Work Phone: Serum or plasma urea nitroge n measurement (mass/volume)on 11-03-2021 Urea nitrogen [Mass/Vol] 40 mg/dL 7-18 [facility] Work Phone: Basophil percentageon 2021 Basophil percentage 3.8 mg/dL 2.5-4.9 [facility] Work Phone: Chloride [Moles/Vol] 108 mmol/L 98-107 [facility] Work Phone: Glucose [Mass/Vol] 86 mg/dL 74-106 [facility] Work Phone: Potassium [Moles/Vol] 4.3 mmol/L 3.5-5.1 [facility] Work Phone: Sodium [Moles/Vol] 138 mmol/L 136-145 [facility] Work Phone: WBC (Bld) [#/Vol] 5.6 10*3/uL 4.4-11.0 [facility] Work Phone: Blood erythrocytes count (nu mber/volume)on 10-06-2021 RBC (Bld) [#/Vol] 3.32 10*6/uL 4.2-5.4 [facility] Work Phone: Blood hemoglobin measurement (mass/volume)on 10-06-2021 Hemoglobin (Bld) [Mass/Vol] 10.4 g/dL 12.0-15.0 [facility] Work Phone: Blood platelet mean volumeon 10-06-2021 Platelet mean volume (Bld) [Entitic vol] 9.3 fL 6.2-12.0 [facility] Work Phone: Determination of erythrocyte mean corpuscular volume (MCV)on 10-06-2021 MCV (RBC) [Entitic vol] 96.4 fL 81-99 [facility] Work Phone: Hematocrit Auto (Bld) [Volum e fraction]on 10-06-2021 Hematocrit (Bld) [Volume fraction] 32.0 % 37-47 [facility] Work Phone: Laboratory - Chemistry and C hemistry - challengeon 10-06-2021 CO2 [Moles/Vol] 24.0 mmol/L 21.0-32.0 [facility] Work Phone: Urea nitrogen/Creatinine [Mass ratio] 19.7 mg/mg 10-20 [facility] Work Phone: Laboratory - Hematology and Cell countson 10-06-2021 Erythrocyte distribution width (RBC) [Entitic vol] 46.5 fL 35.1-43.9 [facility] Work Phone: Erythrocyte distribution width (RBC) [Ratio] 13.1 % 11.6-14.6 [facility] Work Phone: MCH (RBC) [Entitic mass] 31.3 pg 27.0-32.0 [facility] Work Phone: MCHC Auto (RBC) [Mass/Vol]on 10-06-2021 MCHC (RBC) [Mass/Vol] 32.5 g/dL 32-36 [facility]: No Panel Informationon 10-06 Estimated Creatinine Clearance Calc 20.19 ml/min [facility] Work Phone: Estimated GFR (MDRD) Amer 32 mL/min >60 [facility] Work Phone: Comment on above: GFR Calc Estimated GFR (MDRD) Non-Af Amer 27 mL/min >60 [facility] Work Phone: Comment on above: Non- GFR Calc Parathyroid Hormone (Intact) 81.9 pg/mL 18.4-80.1 [facility] Work Phone: Vitamin D 25-Hydroxy 39.7 ng/mL [facility] Work Phone: Comment on above: Vitamin D 25(OH) Sta tus Range Deficiency <20 ng/mL (50nmol/L) Insufficiency 20 - 30 ng/mL (50 - 75 nmol/L) Sufficiency 30 - 100 ng/mL (75 - 250 nmol/L) Toxicity >100 ng/mL (>250 nmol/L) Platelets bldon 10-06-2021 Platelets (Bld) [#/Vol] 186 10*3/uL 150-450 [facility] Work Phone: Serum or plasma albumin jarrett urement (mass/volume)on 10-06-2021 Albumin [Mass/Vol] 3.3 g/dL 3.2-5.0 [facility] Work Phone: Serum or plasma calcium jarrett urement (mass/volume)on 10-06-2021 Calcium [Mass/Vol] 9.5 mg/dL 8.5-10.1 [facility] Work Phone: Serum or plasma creatinine m easurement (mass/volume)on 10-06-2021 Creatinine [Mass/Vol] 1.93 mg/dL 0.55-1.02 [facility] Work Phone: Comment on above: The validity of the calculated GFR & GFRAA in patients over 70 years has not been determined. Clinical correlation is essential. Serum or plasma urea nitroge n measurement (mass/volume)on 10-06-2021 Urea nitrogen [Mass/Vol] 38 mg/dL 7-18 [facility] Work Phone: Urine creatinine measurement (mass/volume)on 10-06-2021 Creatinine (U) [Mass/Vol] 87.90 mg/dL NO RANGE EST. [facility] Work Phone: Urine protein measurement (m ass/volume)on 10-06-2021 Protein (U) [Mass/Vol] 36.3 mg/dL 0.0-11.8 [facility] Work Phone: Urine protein/creatinine mas s ratioon 10-06-2021 Protein/Creatinine (U) [Mass ratio] 413 mg/g CRE 0-200 [facility] Work Phone: Basophil percentageon 2021 Basophil percentage 3.6 mg/dL 2.5-4.9 [facility] Work Phone: Chloride [Moles/Vol] 104 mmol/L 98-107 [facility] Work Phone: Glucose [Mass/Vol] 173 mg/dL 74-106 [facility] Work Phone: Comment on above: Fasting Glucose resu lt greater than or equal to 126 mg/dL suggests DIABETES MELLITUS per A.D.A. criteria. Potassium [Moles/Vol] 4.5 mmol/L 3.5-5.1 [facility] Work Phone: Sodium [Moles/Vol] 135 mmol/L 136-145 [facility] Work Phone: Blood hemoglobin measurement (mass/volume)on 09-08-2021 Hemoglobin (Bld) [Mass/Vol] 11.6 g/dL 12.0-15.0 [facility] Work Phone: Hematocrit Auto (Bld) [Volum e fraction]on 09-08-2021 Hematocrit (Bld) [Volume fraction] 35.6 % 37-47 [facility] Work Phone: Laboratory - Chemistry and C hemistry - challengeon 09-08-2021 CO2 [Moles/Vol] 22.0 mmol/L 21.0-32.0 [facility] Work Phone: Urea nitrogen/Creatinine [Mass ratio] 27.1 mg/mg 10-20 [facility] Work Phone: No Panel Informationon 09-08 Estimated GFR (MDRD) Amer 33 mL/min >60 [facility] Work Phone: Comment on above: GFR Calc Estimated GFR (MDRD) Non-Af Amer 27 mL/min >60 [facility] Work Phone: Comment on above: Non- GFR Calc Serum or plasma albumin jarrett urement (mass/volume)on 09-08-2021 Albumin [Mass/Vol] 3.7 g/dL 3.2-5.0 [facility] Work Phone: Serum or plasma calcium jarrett urement (mass/volume)on 09-08-2021 Calcium [Mass/Vol] 9.8 mg/dL 8.5-10.1 [facility] Work Phone: Serum or plasma creatinine m easurement (mass/volume)on 09-08-2021 Creatinine [Mass/Vol] 1.92 mg/dL 0.55-1.02 [facility] Work Phone: Comment on above: The validity of the calculated GFR & GFRAA in patients over 70 years has not been determined. Clinical correlation is essential. Serum or plasma urea nitroge n measurement (mass/volume)on 09-08-2021 Urea nitrogen [Mass/Vol] 52 mg/dL 7-18 [facility] Work Phone: Basophil percentageon 2021 Basophil percentage 3.2 mg/dL 2.5-4.9 [facility] Work Phone: Chloride [Moles/Vol] 105 mmol/L 98-[address] [facility] Work Phone: Glucose [Mass/Vol] 105 mg/dL 74-106 [facility] Work Phone: Comment on above: Fasting Glucose resu lt from 100 to 125 mg/dL suggests IMPAIRED HOMEOSTASIS per A.D.A. criteria. Potassium [Moles/Vol] 4.4 mmol/L 3.5-5.1 [facility] Work Phone: Sodium [Moles/Vol] 137 mmol/L 136-145 [facility] Work Phone: Blood hemoglobin measurement (mass/volume)on 08-09-2021 Hemoglobin (Bld) [Mass/Vol] 10.3 g/dL 12.0-15.0 [facility] Work Phone: HEMOGLOBIN A1C (POC)on 08-09 HbA1c (Bld) [Mass fraction] 7.6 % Abnormal 4.2 - 5.6 % [facility] Hematocrit Auto (Bld) [Volum e fraction]on 08-09-2021 Hematocrit (Bld) [Volume fraction] 32.3 % 37-47 [facility] Work Phone: Iron measurement (mass/mass) on 08-09-2021 Iron (Unsp spec) [Mass/Mass] 75 ug/dL 50-170 [facility] Work Phone: Laboratory - Chemistry and C hemistry - challengeon 08-09-2021 CO2 [Moles/Vol] 25.0 mmol/L 21.0-32.0 [facility] Work Phone: Urea nitrogen/Creatinine [Mass ratio] 17.4 mg/mg 10-20 [facility] Work Phone: No Panel Informationon 08-09 Estimated Creatinine Clearance Calc 19.99 ml/min [facility] Work Phone: Estimated GFR (MDRD) Amer 32 mL/min >60 [facility] Work Phone: Comment on above: GFR Calc Estimated GFR (MDRD) Non-Af Amer 26 mL/min >60 [facility] Work Phone: Comment on above: Non- GFR Calc Total Iron Binding Capacity 316 ug/dL 250-450 [facility] Work Phone: Serum or plasma albumin jarrtet urement (mass/volume)on 08-09-2021 Albumin [Mass/Vol] 3.2 g/dL 3.2-5.0 [facility] Work Phone: Serum or plasma calcium jarrett urement (mass/volume)on 08-09-2021 Calcium [Mass/Vol] 9.5 mg/dL 8.5-10.1 [facility] Work Phone: Serum or plasma creatinine m easurement (mass/volume)on 08-09-2021 Creatinine [Mass/Vol] 1.95 mg/dL 0.55-1.02 [facility] Work Phone: Comment on above: The validity of the calculated GFR & GFRAA in patients over 70 years has not been determined. Clinical correlation is essential. Serum or plasma ferritin bubba surement (mass/volume)on 08-09-2021 Ferritin [Mass/Vol] 52 ng/mL 8-252 [facility] Work Phone: Serum or plasma iron saturat ion measurement (mass fraction)on 08-09-2021 Iron saturation [Mass fraction] 23.7 % 15.0-55.0 [facility] Work Phone: Serum or plasma urea nitroge n measurement (mass/volume)on 08-09-2021 Urea nitrogen [Mass/Vol] 34 mg/dL 7-18 [facility] Work Phone: Basophil percentageon 2021 Basophil percentage 3.5 mg/dL 2.5-4.9 [facility] Work Phone: Chloride [Moles/Vol] 105 mmol/L 98-107 [facility] Work Phone: Glucose [Mass/Vol] 136 mg/dL 74-106 [facility] Work Phone: Comment on above: Fasting Glucose resu lt greater than or equal to 126 mg/dL suggests DIABETES MELLITUS per A.D.A. criteria. Potassium [Moles/Vol] 4.4 mmol/L 3.5-5.1 [facility] Work Phone: Sodium [Moles/Vol] 136 mmol/L 136-145 [facility] Work Phone: Blood hemoglobin measurement (mass/volume)on 07-14-2021 Hemoglobin (Bld) [Mass/Vol] 10.8 g/dL 12.0-15.0 [facility] Work Phone: Hematocrit Auto (Bld) [Volum e fraction]on 07-14-2021 Hematocrit (Bld) [Volume fraction] 31.8 % 37-47 [facility] Work Phone: Laboratory - Chemistry and C hemistry - challengeon 07-14-2021 CO2 [Moles/Vol] 24.0 mmol/L 21.0-32.0 [facility] Work Phone: Urea nitrogen/Creatinine [Mass ratio] 19.8 mg/mg 10-20 [facility] Work Phone: No Panel Informationon 07-14 Estimated GFR (MDRD) Amer 33 mL/min >60 [facility] Work Phone: Comment on above: GFR Calc Estimated GFR (MDRD) Non-Af Amer 27 mL/min >60 [facility] Work Phone: Comment on above: Non- GFR Calc Serum or plasma albumin jarrett urement (mass/volume)on 07-14-2021 Albumin [Mass/Vol] 3.4 g/dL 3.2-5.0 [facility] Work Phone: Serum or plasma calcium jarrett urement (mass/volume)on 07-14-2021 Calcium [Mass/Vol] 9.9 mg/dL 8.5-10.1 [facility] Work Phone: Serum or plasma creatinine m easurement (mass/volume)on 07-14-2021 Creatinine [Mass/Vol] 1.92 mg/dL 0.55-1.02 [facility] Work Phone: Comment on above: The validity of the calculated GFR & GFRAA in patients over 70 years has not been determined. Clinical correlation is essential. Serum or plasma urea nitroge n measurement (mass/volume)on 07-14-2021 Urea nitrogen [Mass/Vol] 38 mg/dL 7-18 [facility] Work Phone: Basophil percentageon 2021 Basophil percentage 2.9 mg/dL 2.5-4.9 [facility] Work Phone: Chloride [Moles/Vol] 106 mmol/L 98-107 [facility] Work Phone: Glucose [Mass/Vol] 120 mg/dL 74-106 [facility] Work Phone: Comment on above: Fasting Glucose resu lt from 100 to 125 mg/dL suggests IMPAIRED HOMEOSTASIS per A.D.A. criteria. Potassium [Moles/Vol] 4.5 mmol[facility]L 3.5-5.[facility] Work [facility]: Sodium [Moles/Vol] 137 mmol/L 136-145 [facility] Work Phone: Blood hemoglobin measurement (mass/volume)on 06-14-2021 Hemoglobin (Bld) [Mass/Vol] 11.0 g/dL 12.0-15.0 [facility] Work Phone: Hematocrit Auto (Bld) [Volum e fraction]on 06-14-2021 Hematocrit (Bld) [Volume fraction] 33.8 % 37-47 [facility] Work Phone: Laboratory - Chemistry and C hemistry - challengeon 06-14-2021 CO2 [Moles/Vol] 22.0 mmol/L 21.0-32.0 [facility] Work Phone: Urea nitrogen/Creatinine [Mass ratio] 19.9 mg/mg 10-20 [facility] Work Phone: No Panel Informationon 06-14 Estimated GFR (MDRD) Amer 32 mL/min >60 [facility] Work Phone: Comment on above: GFR Calc Estimated GFR (MDRD) Non-Af Amer 26 mL/min >60 [facility] Work Phone: Comment on above: Non- GFR Calc Serum or plasma albumin jarrett urement (mass/volume)on 06-14-2021 Albumin [Mass/Vol] 3.3 g/dL 3.2-5.0 [facility] Work Phone: Serum or plasma calcium jarrett urement (mass/volume)on 06-14-2021 Calcium [Mass/Vol] 8.7 mg/dL 8.5-10.1 [facility] Work Phone: Serum or plasma creatinine m easurement (mass/volume)on 06-14-2021 Creatinine [Mass/Vol] 1.96 mg/dL 0.55-1.02 [facility] Work Phone: Comment on above: The validity of the calculated GFR & GFRAA in patients over 70 years has not been determined. Clinical correlation is essential. Serum or plasma urea nitroge n measurement (mass/volume)on 06-14-2021 Urea nitrogen [Mass/Vol] 39 mg/dL 7-18 [facility] [facility] Work Phone: Basophil percentageon 2021 Basophil percentage 3.1 mg/dL 2.5-4.9 [facility] Work Phone: Chloride [Moles/Vol] 106 mmol/L 98-[address] [facility] Work Phone: Glucose [Mass/Vol] 113 mg/dL 74-106 [facility] Work Phone: Comment on above: Fasting Glucose resu lt from 100 to 125 mg/dL suggests IMPAIRED HOMEOSTASIS per A.D.A. criteria. Potassium [Moles/Vol] 4.5 mmol/L 3.5-5.1 [facility] Work Phone: Sodium [Moles/Vol] 138 mmol/L 136-145 [facility] Work Phone: Blood hemoglobin measurement (mass/volume)on 05-17-2021 Hemoglobin (Bld) [Mass/Vol] 10.6 g/dL 12.0-15.0 [facility] Work Phone: Hematocrit Auto (Bld) [Volum e fraction]on 05-17-2021 Hematocrit (Bld) [Volume fraction] 32.2 % 37-47 [facility] Work Phone: Iron measurement (mass/mass) on 05-17-2021 Iron (Unsp spec) [Mass/Mass] 76 ug/dL 50-170 [facility] Work Phone: Laboratory - Chemistry and C hemistry - challengeon 05-17-2021 CO2 [Moles/Vol] 25.0 mmol/L 21.0-32.0 [facility] Work Phone: Urea nitrogen/Creatinine [Mass ratio] 16.2 mg/mg 10-20 [facility] Work Phone: No Panel Informationon 05-17 Estimated GFR (MDRD) Amer 33 mL/min >60 [facility] Work Phone: Comment on above: GFR Calc Estimated GFR (MDRD) Non-Af Amer 27 mL/min >60 [facility] Work Phone: Comment on above: Non- GFR Calc Total Iron Binding Capacity 306 ug/dL 250-450 [facility] Work Phone: Serum or plasma albumin jarrett urement (mass/volume)on 05-17-2021 Albumin [Mass/Vol] 3.4 g/dL 3.2-5.0 [facility] Work Phone: Serum or plasma calcium jarrett urement (mass/volume)on 05-17-2021 Calcium [Mass/Vol] 9.7 mg/dL 8.5-10.1 [facility] Work Phone: Serum or plasma creatinine m easurement (mass/volume)on 05-17-2021 Creatinine [Mass/Vol] 1.91 mg/dL 0.55-1.02 [facility] Work Phone: Comment on above: The validity of the calculated GFR & GFRAA in patients over 70 years has not been determined. Clinical correlation is essential. Serum or plasma ferritin bubba surement (mass/volume)on 05-17-2021 Ferritin [Mass/Vol] 56 ng/mL 8-252 [facility] Work Phone: Serum or plasma iron saturat ion measurement (mass fraction)on 05-17-2021 Iron saturation [Mass fraction] 24.8 % 15.0-55.0 [facility] Work Phone: Serum or plasma urea nitroge n measurement (mass/volume)on 05-17-2021 Urea nitrogen [Mass/Vol] 31 mg/dL 7-18 [facility] Work Phone: Basophil percentageon 2021 Basophil percentage 3.4 mg/dL 2.5-4.9 [facility] Work Phone: Chloride [Moles/Vol] 106 mmol/L 98-107 [facility] Work Phone: Glucose [Mass/Vol] 185 mg/dL 74-106 [facility] Work Phone: Comment on above: Fasting Glucose resu lt greater than or equal to 126 mg/dL suggests DIABETES MELLITUS per A.D.A. criteria. Potassium [Moles/Vol] 4.2 mmol/L 3.5-5.1 [facility] Work Phone: Sodium [Moles/Vol] 138 mmol/L 136-145 [facility] Work Phone: Blood hemoglobin measurement (mass/volume)on 04-19-2021 Hemoglobin (Bld) [Mass/Vol] 11.1 g/dL 12.0-15.0 [facility] Work Phone: Hematocrit Auto (Bld) [Volum e fraction]on 04-19-2021 Hematocrit (Bld) [Volume fraction] 33.2 % 37-47 [facility] Work Phone: Laboratory - Chemistry and C hemistry - challengeon 04-19-2021 CO2 [Moles/Vol] 24.0 mmol/L 21.0-32.0 [facility] Work Phone: Urea nitrogen/Creatinine [Mass ratio] 15.7 mg/mg 10-20 [facility] Work Phone: No Panel Informationon 04-19 Estimated GFR (MDRD) Amer 27 mL/min >60 [facility] Work Phone: Comment on above: GFR Calc Estimated GFR (MDRD) Non-Af Amer 22 mL/min >60 [facility] Work Phone: Comment on above: Non- GFR Calc Serum or plasma albumin jarrett urement (mass/volume)on 04-19-2021 Albumin [Mass/Vol] 3.3 g/dL 3.2-5.0 [facility] Work Phone: Serum or plasma calcium jarrett urement (mass/volume)on 04-19-2021 Calcium [Mass/Vol] 9.6 mg/dL 8.5-10.1 [facility] Work Phone: Serum or plasma creatinine m easurement (mass/volume)on 04-19-2021 Creatinine [Mass/Vol] 2.29 mg/dL 0.55-1.02 [facility] Work Phone: Comment on above: The validity of the calculated GFR & GFRAA in patients over 70 years has not been determined. Clinical correlation is essential. Serum or plasma urea nitroge n measurement (mass/volume)on 04-19-2021 Urea nitrogen [Mass/Vol] 36 mg/dL 7-18 [facility] Work Phone: Absolute lymphocyte counton 03-22-2021 Lymphocytes Auto (Unsp spec) [#/Vol] 1.54 10*3/uL 0.83-4.51 [facility] Work Phone: Basophil percentageon 2021 Basophil percentage 2.9 mg/dL 2.5-4.9 [facility] Work Phone: Basophils/100 WBC (Bld) 0.6 % 0-1 [facility] Work Phone: Chloride [Moles/Vol] 108 mmol/L 98-107 [facility] Work Phone: Eosinophils/100 WBC (Bld) 2.8 % 0-5 [facility] Work Phone: Glucose [Mass/Vol] 171 mg/dL 74-106 [facility] Work Phone: Comment on above: Fasting Glucose resu lt greater than or equal to 126 mg/dL suggests DIABETES MELLITUS per A.D.A. criteria.Please note revised GLUCOSE reference range effective 2017. Neutrophils (Bld) [#/Vol] 4.1 10*3/uL 2.0-7.7 [facility] Work Phone: Neutrophils/100 WBC (Bld) 63.5 % 47-70 [facility] Work Phone: [phone] Potassium [Moles/Vol] 4.4 mmol/L 3.5-5.1 [facility] Work Phone: Sodium [Moles/Vol] 140 mmol/L 136-145 [facility] Work Phone: WBC (Bld) [#/Vol] 6.5 10*3/uL 4.4-11.0 [facility] Work Phone: Blood erythrocytes count (nu mber/volume)on 03-22-2021 RBC (Bld) [#/Vol] 3.52 10*6/uL 4.2-5.4 [facility] Work Phone: Blood hemoglobin measurement (mass/volume)on 03-22-2021 Hemoglobin (Bld) [Mass/Vol] 10.9 g/dL 12.0-15.0 [facility] Work Phone: Blood lymphocytes/100 leukoc yteson 03-22-2021 Lymphocytes/100 WBC (Bld) 23.7 % 19-41 [facility] Work Phone: Blood monocytes/100 leukocyt eson 03-22-2021 Monocytes/100 WBC (Bld) 8.8 % 0-10 [facility] Work Phone: Blood platelet mean volumeon 03-22-2021 Platelet mean volume (Bld) [Entitic vol] 9.3 fL 6.2-12.0 [facility] Work Phone: Determination of erythrocyte mean corpuscular volume (MCV)on 03-22-2021 MCV (RBC) [Entitic vol] 96.3 fL 81-99 [facility] Work Phone: Hematocrit Auto (Bld) [Volum e fraction]on 03-22-2021 Hematocrit (Bld) [Volume fraction] 33.9 % 37-47 [facility] Work Phone: Laboratory - Chemistry and C hemistry - challengeon 03-22-2021 CO2 [Moles/Vol] 24.0 mmol/L 21.0-32.0 [facility] Work Phone: Urea nitrogen/Creatinine [Mass ratio] 18.3 mg/mg 10-20 [facility] Work Phone: Laboratory - Hematology and Cell countson 03-22-2021 Erythrocyte distribution width (RBC) [Entitic vol] 47.8 fL 35.1-43.9 [facility] Work Phone: Erythrocyte distribution width (RBC) [Ratio] 13.4 % 11.6-14.6 [facility] Work Phone: Immature granulocytes/100 WBC (Bld) 0.600 % 0.0-0.9 [facility] Work Phone: Comment on above: IG% - Immature Granu locytes (promyelocytes, myelocytes and metamyelocytes) > 1% indicates that a LEFT SHIFT is Present. MCH (RBC) [Entitic mass] 31.0 pg 27.0-32.0 [facility] Work Phone: Nucleated RBC/100 WBC (Bld) [Ratio] 0 % 0-5 [facility] Work Phone: MCHC Auto (RBC) [Mass/Vol]on 03-22-2021 MCHC (RBC) [Mass/Vol] 32.2 g/dL 32-36 [facility] Work Phone: No Panel Informationon 03-22 Estimated GFR (MDRD) Amer 31 mL/min >60 [facility] Work Phone: Comment on above: GFR Calc Estimated GFR (MDRD) Non-Af Amer 25 mL/min >60 [facility] Work Phone: Comment on above: Non- GFR Calc Platelets bldon 03-22-2021 Platelets (Bld) [#/Vol] 237 10*3/uL 150-450 [facility] Work Phone: Serum or plasma albumin jarrett urement (mass/volume)on 03-22-2021 Albumin [Mass/Vol] 3.3 g/dL 3.2-5.0 [facility] Work Phone: Serum or plasma calcium jarrett urement (mass/volume)on 03-22-2021 Calcium [Mass/Vol] 10.0 mg/dL 8.5-10.1 [facility] Work Phone: Serum or plasma creatinine m easurement (mass/volume)on 03-22-2021 Creatinine [Mass/Vol] 2.02 mg/dL 0.55-1.02 [facility] Work Phone: Comment on above: The validity of the calculated GFR & GFRAA in patients over 70 years has not been determined. Clinical correlation is essential. Serum or plasma urea nitroge n measurement (mass/volume)on 03-22-2021 Urea nitrogen [Mass/Vol] 37 mg/dL 7-18 [facility] Work Phone: Whole blood hemoglobin A1c/t otal hemoglobin ratio (mass fraction)on 03-22-2021 HbA1c (Bld) [Mass fraction] 8.3 % 3.8-5.6 [facility] Work Phone: Comment on above: Normal < 5.7 % Predi abetic 5.7 - 6.4 % Diabetic >or= 6.5 % Please note range changes. Basophil percentageon 2020 Basophil percentage 3.2 mg/dL 2.5-4.9 [facility] Work Phone: Chloride [Moles/Vol] 102 mmol/L 98-107 [facility] Work Phone: Glucose [Mass/Vol] 219 mg/dL 74-106 [facility] Work Phone: Comment on above: Glucose result great er than or equal to 200 mg/dLsuggests DIABETES MELLITUS per A.D.A. criteria.Please note revised GLUCOSE reference range effective 2017. Potassium [Moles/Vol] 4.5 mmol/L 3.5-5.1 [facility] Work Phone: Sodium [Moles/Vol] 134 mmol/L 136-145 [facility] Work Phone: Blood hemoglobin measurement (mass/volume)on 02-22-2021 Hemoglobin (Bld) [Mass/Vol] 11.5 g/dL 12.0-15.0 [facility] Work Phone: Hematocrit Auto (Bld) [Volum e fraction]on 02-22-2021 Hematocrit (Bld) [Volume fraction] 34.3 % 37-47 [facility] Work Phone: Iron measurement (mass/mass) on 02-22-2021 Iron (Unsp spec) [Mass/Mass] 104 ug/dL 50-170 [facility] Work Phone: Laboratory - Chemistry and C hemistry - challengeon 02-22-2021 CO2 [Moles/Vol] 22.0 mmol/L 21.0-32.0 [facility] Work Phone: Urea nitrogen/Creatinine [Mass ratio] 24.6 mg/mg 10-20 [facility] Work Phone: No Panel Informationon 02-22 Estimated GFR (MDRD) Amer 30 mL/min >60 [facility] Work Phone: Comment on above: GFR Calc Estimated GFR (MDRD) Non-Af Amer 25 mL/min >60 [facility] Work Phone: Comment on above: Non- GFR Calc Total Iron Binding Capacity 342 ug/dL 250-450 [facility] Work Phone: Serum or plasma albumin jarrett urement (mass/volume)on 02-22-2021 Albumin [Mass/Vol] 3.3 g/dL 3.2-5.0 [facility] Work Phone: Serum or plasma calcium jarrett urement (mass/volume)on 02-22-2021 Calcium [Mass/Vol] 9.7 mg/dL 8.5-10.1 [facility] Work Phone: Serum or plasma creatinine m easurement (mass/volume)on 02-22-2021 Creatinine [Mass/Vol] 2.07 mg/dL 0.55-1.02 [facility] Work Phone: Comment on above: The validity of the calculated GFR & GFRAA in patients over 70 years has not been determined. Clinical correlation is essential. Serum or plasma ferritin bubba surement (mass/volume)on 02-22-2021 Ferritin [Mass/Vol] 64 ng/mL 8-252 [facility] Work Phone: Serum or plasma urea nitroge n measurement (mass/volume)on 02-22-2021 Urea nitrogen [Mass/Vol] 51 mg/dL 7-18 [facility] Work Phone: Urine creatinine measurement (mass/volume)on 02-22-2021 Creatinine (U) [Mass/Vol] 62.80 mg/dL NO RANGE EST. [facility] Work Phone: Urine protein measurement (m ass/volume)on 02-22-2021 Protein (U) [Mass/Vol] 39.9 mg/dL 0.0-11.8 [facility] Work Phone: Urine protein/creatinine mas s ratioon 02-22-2021 Protein/Creatinine (U) [Mass ratio] 635 mg/g CRE 0-200 [facility] Work Phone: URINALYSISon 04-15-2018 Bacteria, Urine Rare NS;RARE /HPF [facility] Bilirubin, Urine Negative NEG;NEGATIVE [facility] Blood, Urine Negative NEG;NEGATIVE [facility] Calcium Oxalate, Crystal Few Abnormal None Seen /HPF [facility] Cast, Hyaline 1 [facility] Character Nom (U) Cloudy [facility] Color Nom (U) Yellow [facility] Comment on above: The specimen was col lected in a tube with the additives ethyl paraben, sodium propionate and chlorhexidine preservative. Detection of urobilinogen and bilirubin maybe decreased due to their instability at RT or when exposed to light. Glucose Ql (U) Negative NEG;NEGATIVE mg/dL [facility] Interpretation and review of laboratory results Abnormal [facility] Ketones Ql (U) Negative NEG;NEGATIVE mg/dL [facility] Leukocyte esterase Test strip Ql (U) Moderate Abnormal Negative [facility] Nitrite, Urine Negative NEG;NEGATIVE [facility] pH (U) 5.0 [pH] [facility] Protein mass conc (U) 30 mg/dL High <30 [facility] RBC #/vol (U) 2 /uL [facility] Specific gravity Relative Density (U) 1.019 [facility] Squamous Epithelial 1 [facility] Uric Acid, Crystal Rare Abnormal None Seen /HPF [facility] Urobilinogen, Urine < 2.0 <2 mg/dL [facility] Comment on above: Urobilinogen, Urine Reference Range: <2.0 mg/dL WBCs, Urine 21 High [facility] Urinalysis, Routineon 2018 Bacteria LM.HPF #/area (Urine sed) Rare Normal NS;RARE [facility] Comment on above: Performed By: #### U A #### Unless otherwise noted, all testing performed by [place] [id number] CLIA: [id number] Publications Editor: Donald Brewster M.D. Bilirubin,Urine Negative Normal NEG;NEGATIVE [facility] Comment on above: Performed By: #### U A #### Unless otherwise noted, all testing performed by [place] [id number] CLIA: [id number] Publications Editor: Donald Brewster M.D. Blood,Urine Negative Normal NEG;NEGATIVE [facility] Comment on above: Performed By: #### U A #### Unless otherwise noted, all testing performed by [place] [id number] CLIA: [id number] Publications Editor: Donald Brewster M.D. Calcium Oxalate Karen Few Abnormal None Seen [facility] Comment on above: Performed By: #### U A #### Unless otherwise noted, all testing performed by [place] [id number] CLIA: [id number] Publications Editor: Donald Brewster M.D. Cast, Hyaline 1 /LPF Normal 0-5 [facility] Comment on above: Performed By: #### U A #### Unless otherwise noted, all testing performed by [address] [place], [place] [address] CLIA: [id number] Publications Editor: Donald Brewster M.D. Character Nom (U) Cloudy Normal [facility] Comment on above: Performed By: #### U A #### Unless otherwise noted, all testing performed by [place] [id number] CLIA: [id number] Publications Editor: Donald Brewster M.D. Color Nom (U) Yellow Normal [facility] Comment on above: Result Comment: The specimen was collected in a tube with the additives ethyl paraben, sodium propionate and chlorhexidine preservative. Detection of urobilinogen and bilirubin maybe decreased due to their instability at RT or when exposed to light. Performed By: #### U A #### Unless otherwise noted, all testing performed by [place] [phone] CLIA: [id number] Publications Editor: Donald Brewster M.D. Glucose Ql (U) Negative Normal NEG;NEGATIVE [facility] Comment on above: Performed By: #### U A #### Unless otherwise noted, all testing performed by [place] [phone] CLIA: [id number] Publications Editor: Donald Brewster M.D. Ketone,Urine Negative Normal NEG;NEGATIVE [facility] Comment on above: Performed By: #### U A #### Unless otherwise noted, all testing performed by [place] [phone] CLIA: [id number] Publications Editor: Donald Brewster M.D. Leuk.Esterase,Urine Moderate Abnormal Negative [facility] Comment on above: Performed By: #### U A #### Unless otherwise noted, all testing performed by [place] [phone] CLIA: [id number] Publications Editor: Donald Brewster M.D. Nitrite,Urine Negative Normal NEG;NEGATIVE [facility] Comment on above: Performed By: #### U A #### Unless otherwise noted, all testing performed by [place] [phone] CLIA: [id number] Publications Editor: Donald Brewster M.D. pH (U) 5.0 [pH] Normal 4.5-8.0 [facility] Comment on above: Performed By: #### U A #### Unless otherwise noted, all testing performed by [place] [phone] CLIA: [id number] Publications Editor: Donald Brewster M.D. Protein mass conc (U) 30 mg/dL High < 30 [facility] Comment on above: Performed By: #### U A #### Unless otherwise noted, all testing performed by [place] [phone] CLIA: [id number] Publications Editor: Donald Brewster M.D. RBC,Urine 2 /HPF Normal 0-5 [facility] Comment on above: Performed By: #### U A #### Unless otherwise noted, all testing performed by [place] [phone] CLIA: [id number] Publications Editor: Donald Brewster M.D. Specific [place],Urine 1.019 Normal 1.003-1.029 [facility] Comment on above: Performed By: #### U A #### Unless otherwise noted, all testing performed by [place] [address] CLIA: [id number] Publications Editor: Donald Brewster M.D. Squamous Epithelial 1 /HPF Normal 0-40 [facility] Comment on above: Performed By: #### U A #### Unless otherwise noted, all testing performed by [place] [address] CLIA: [id number] Publications Editor: Donald Brewster M.D. Uric Acid, Crystal Rare Abnormal None Seen [facility] Comment on above: Performed By: #### U A #### Unless otherwise noted, all testing performed by [place] [address] CLIA: [id number] Publications Editor: Donald Brewster M.D. Urobilinogen,Urine < 2.0 Normal <2 [facility] Comment on above: Result Comment: Urob ilinogen, Urine Reference Range: <2.0 mg/dL Performed By: #### U A #### Unless otherwise noted, all testing performed by [place] [address] CLIA: [id number] Publications Editor: Donald Brewster M.D. WBC,Urine 21 /HPF High 0-5 [facility] Comment on above: Performed By: #### U A #### Unless otherwise noted, all testing performed by [place] [address] CLIA: [id number] Publications Editor: Donald Brewster M.D. Basic Metabolic Panelon 03-18 Calcium mass conc 8.7 mg/dL Normal 8.4-10.2 [facility] Comment on above: Performed By: #### C HEM8, CBCDIF #### Unless otherwise noted, all testing performed by [place] [address] CLIA: [id number] Publications Editor: Donald Brewster M.D. Chloride molar conc 107 mmol/L Normal 98-108 [facility] Comment on above: Performed By: #### C HEM8, CBCDIF #### Unless otherwise noted, all testing performed by [place] [address] CLIA: [id number] Publications Editor: Donald Brewster M.D. CO2 molar conc 25 mmol/L Normal 21-32 [facility] Comment on above: Performed By: #### C HEM8, CBCDIF #### Unless otherwise noted, all testing performed by [place] [address] CLIA: [id number] Publications Editor: Donald Brewster M.D. Creatinine mass conc 1.72 mg/dL High 0.60-1.20 [facility] Comment on above: Performed By: #### C HEM8, CBCDIF #### Unless otherwise noted, all testing performed by [place] [address] CLIA: [id number] Publications Editor: Donald Brewster M.D. GFR/1.73 sq M predicted among blacks MDRD vol rate/area (S/P/Bld) 35 mL/min/{1.73_m2} Low >60 [facility] Comment on above: Result Comment: Afri can Citizen Of [place] GFR Calc Performed By: #### C HEM8, CBCDIF #### Unless otherwise noted, all testing performed by [place] [address] CLIA: [id number] Publications Editor: Donald Brewster M.D. GFR/1.73 sq M predicted among non-blacks MDRD vol rate/area (S/P/Bld) 29 mL/min/{1.73_m2} Low >60 [facility] Comment on above: Result Comment: Non- GFR Calc eGFR is an estimated Glomerular Filtration Rate based on the value of the patient's serum creatinine. In outpatients, eGFR should be used as a helpful tool in screening for CKD. In inpatients or patients with acute renal failure, eGFR represents the GFR at the moment of the draw and should be used with caution. Performed By: #### C HEM8, CBCDIF #### Unless otherwise noted, all testing performed by [place] [address] CLIA: [id number] Publications Editor: Donald Brewster M.D. Glucose mass conc 113 mg/dL High 70-99 [facility] Comment on above: Result Comment: This test result might be falsely depressed or falsely elevated on samples drawn from patients taking Sulfasalazine and Sulfapyridine. Venipuncture should occur prior to taking either of these drugs. Performed By: #### C HEM8, CBCDIF #### Unless otherwise noted, all testing performed by [place] [address] CLIA: [id number] Publications Editor: Donald Brewster M.D. Potassium molar conc 4.5 mmol/L Normal 3.5-5.1 [facility] Comment on above: Performed By: #### C HEM8, CBCDIF #### Unless otherwise noted, all testing performed by [place] [address] CLIA: [id number] Publications Editor: Donald Brewster M.D. Sodium molar conc 137 mmol/L Normal 135-145 [facility] Comment on above: Performed By: #### C HEM8, CBCDIF #### Unless otherwise noted, all testing performed by [place] [address] CLIA: [id number] Publications Editor: Donald Brewster M.D. Urea nitrogen mass conc 28 mg/dL High 8-25 [facility] Comment on above: Performed By: #### C HEM8, CBCDIF #### Unless otherwise noted, all testing performed by [place] [phone] CLIA: [id number] Publications Editor: Donald Brewster M.D. CBC with Diffon 03-27-2018 Basophils #/vol (Bld) 0.0 K/mcL Normal 0-0.2 [facility] Comment on above: Performed By: #### C HEM8, CBCDIF #### Unless otherwise noted, all testing performed by [place] [phone] CLIA: [id number] Publications Editor: Donald Brewster M.D. Basophils/100 WBC (Bld) 0.5 % Normal [facility] Comment on above: Performed By: #### C HEM8, CBCDIF #### Unless otherwise noted, all testing performed by [place] [address] CLIA: [id number] Publications Editor: Donald Brewster M.D. Eosinophils #/vol (Bld) 0.2 K/mcL Normal 0-0.5 [facility] Comment on above: Performed By: #### C HEM8, CBCDIF #### Unless otherwise noted, all testing performed by [place] [address] CLIA: [id number] Publications Editor: Donald Brewster M.D. Eosinophils/100 WBC (Bld) 2.7 % Normal [facility] Comment on above: Performed By: #### C HEM8, CBCDIF #### Unless otherwise noted, all testing performed by [place] [address] CLIA: [id number] Publications Editor: Donald Brewster M.D. Erythrocyte distribution width Ratio (RBC) 14.3 % Normal 10.0-14.4 [facility] Comment on above: Performed By: #### C HEM8, CBCDIF #### Unless otherwise noted, all testing performed by [place] [address] CLIA: [id number] Publications Editor: Donald Brewster M.D. Hematocrit Volume Fraction (Bld) 33.3 % Low 34.4-44.8 [facility] Comment on above: Performed By: #### C HEM8, CBCDIF #### Unless otherwise noted, all testing performed by [place] [address] CLIA: [id number] Publications Editor: Donald Brewster M.D. Hemoglobin mass conc (Bld) 10.8 g/dL Low 11.6-15.4 [facility] Comment on above: Performed By: #### C HEM8, CBCDIF #### Unless otherwise noted, all testing performed by [place] [id number] CLIA: [id number] Publications Editor: Donald Brewster M.D. Lymphocytes #/vol (Bld) 2.0 K/mcL Normal 1.0-3.7 [facility] Comment on above: Performed By: #### C HEM8, CBCDIF #### Unless otherwise noted, all testing performed by [place] [address] CLIA: [id number] Publications Editor: Donald Brewster M.D. Lymphocytes/100 WBC (Bld) 29.3 % Normal [facility] Comment on above: Performed By: #### C HEM8, CBCDIF #### Unless otherwise noted, all testing performed by [place] [address] CLIA: [id number] Publications Editor: Donald Brewster M.D. MCH Entitic mass (RBC) 31.4 pg Normal 27.9-33.9 [facility] Comment on above: Performed By: #### C HEM8, CBCDIF #### Unless otherwise noted, all testing performed by [place] [address] CLIA: [id number] Publications Editor: Donald Brewster M.D. MCHC mass conc (RBC) 32.6 g/dL Low 33.1-35.1 [facility] Comment on above: Performed By: #### C HEM8, CBCDIF #### Unless otherwise noted, all testing performed by [place] [address] CLIA: [id number] Publications Editor: Donald Brewster M.D. MCV Entitic volume (RBC) 96.5 fL Normal 82.6-98.9 [facility] Comment on above: Performed By: #### C HEM8, CBCDIF #### Unless otherwise noted, all testing performed by [address], [place] [address] CLIA: [id number] Publications Editor: Donald Brewster M.D. Monocytes #/vol (Bld) 0.7 K/mcL High 0.1-0.6 [facility] Comment on above: Performed By: #### C HEM8, CBCDIF #### Unless otherwise noted, all testing performed by [place] [address] CLIA: [id number] Publications Editor: Donald Brewster M.D. Monocytes/100 WBC (Bld) 10.2 % Normal [facility] Comment on above: Performed By: #### C HEM8, CBCDIF #### Unless otherwise noted, all testing performed by [place] [phone] CLIA: [id number] Publications Editor: Donald Brewster M.D. Neutrophils #/vol (Bld) 3.8 K/mcL Normal 1.2-6.9 [facility] Comment on above: Performed By: #### C HEM8, CBCDIF #### Unless otherwise noted, all testing performed by [place] [address] CLIA: [id number] Publications Editor: Donald Brewster M.D. Platelet mean volume Entitic volume (Bld) 8.0 fL Normal 7.0-10.6 [facility] Comment on above: Performed By: #### C HEM8, CBCDIF #### Unless otherwise noted, all testing performed by [place] [address] CLIA: [id number] Publications Editor: Donald Brewster M.D. Platelets #/vol (Bld) 264 K/mcL Normal 162-402 [facility] Comment on above: Performed By: #### C HEM8, CBCDIF #### Unless otherwise noted, all testing performed by [place] [address] CLIA: [id number] Publications Editor: Donald Brewster M.D. RBC #/vol (Bld) 3.45 M/mcL Low 3.7-5.0 [facility] Comment on above: Performed By: #### C HEM8, CBCDIF #### Unless otherwise noted, all testing performed by [place] [address] CLIA: [id number] Publications Editor: Donald Brewster M.D. RBC morphology finding Nom (Bld) Normal Normal Normal [facility] Comment on above: Performed By: #### C HEM8, CBCDIF #### Unless otherwise noted, all testing performed by [place] [address] CLIA: [id number] Publications Editor: Donald Brewster M.D. Segmented Neut % 57.3 % Normal [facility] Comment on above: Result Comment: Smea r reviewed to verify automated differential> Performed By: #### C HEM8, CBCDIF #### Unless otherwise noted, all testing performed by [place] [address] CLIA: [id number] Publications Editor: Donald Brewster M.D. WBC #/vol (Bld) 6.7 K/mcL Normal 3.4-10.6 [facility] Comment on above: Performed By: #### C HEM8, CBCDIF #### Unless otherwise noted, all testing performed by [address], [place] [address] CLIA: [id number] Publications Editor: Donald Brewster M.D. Basic Metabolic Panelon 02-15 Calcium mass conc 9.2 mg/dL Invalid Interpretation Code 8.4 - 10.2 mg/dL [facility] Chloride molar conc 105 mmol/L Invalid Interpretation Code 98 - 108 mmol/L [facility] CO2 molar conc 24 mmol/L Invalid Interpretation Code 21 - 32 mmol/L [facility] Creatinine mass conc 1.67 mg/dL High 0.6 - 1 .2 mg/dL [facility] GFR/1.73 sq M predicted among blacks MDRD vol rate/area (S/P/Bld) 36 mL/min/{1.73_m2} Low >60 ml/min/1.73s q.m [facility] Comment on above: GFR Calc GFR/1.73 sq M predicted among non-blacks MDRD vol rate/area (S/P/Bld) 30 mL/min/{1.73_m2} Low >60 ml/min/1.73s q.m [facility] Comment on above: Non- GFR Calc eGFR is an estimated Glomerular Filtration Rate based on the value of the patient's serum creatinine. In outpatients, eGFR should be used as a helpful tool in screening for CKD. In inpatients or patients with acute renal failure, eGFR represents the GFR at the moment of the draw and should be used with caution. Glucose mass conc 87 mg/dL Invalid Interpretation Code 70 - 99 mg/dL [facility] Comment on above: This test result tiff ht be falsely depressed or falsely elevated on samples drawn from patients taking Sulfasalazine and Sulfapyridine. Venipuncture should occur prior to taking either of these drugs. Interpretation and review of laboratory results Abnormal Invalid Interpretation Code [facility] Potassium molar conc 3.9 mmol/L Invalid Interpretation Code 3.5 - 5.1 mmol/L [facility] Sodium molar conc 140 mmol/L Invalid Interpretation Code 135 - 145 mmol/L [facility] Urea nitrogen mass conc 27 mg/dL High 8 - 25 mg/dL [facility] Calcium mass conc 9.2 mg/dL Normal 8.4-10.2 [facility] Comment on above: Performed By: #### C HEM8 #### Unless otherwise noted, all testing performed by [place] [address] CLIA: [id number] Publications Editor: Donald Brewster M.D. Chloride molar conc 105 mmol/L Normal 98-108 [facility] Comment on above: Performed By: #### C HEM8 #### Unless otherwise noted, all testing performed by [place] [address] CLIA: [id number] Publications Editor: Donald Brewster M.D. CO2 molar conc 24 mmol/L Normal 21-32 [facility] Comment on above: Performed By: #### C HEM8 #### Unless otherwise noted, all testing performed by [place] [address] CLIA: [id number] Publications Editor: Donald Brewster M.D. Creatinine mass conc 1.67 mg/dL High 0.60-1.20 [facility] Comment on above: Performed By: #### C HEM8 #### Unless otherwise noted, all testing performed by [place] [address] CLIA: [id number] Publications Editor: Donald Brewster M.D. GFR/1.73 sq M predicted among blacks MDRD vol rate/area (S/P/Bld) 36 mL/min/{1.73_m2} Low >60 [facility] Comment on above: Result Comment: Afri can Citizen Of [place] GFR Calc Performed By: #### C HEM8 #### Unless otherwise noted, all testing performed by [place] [address] CLIA: [id number] Publications Editor: Donald Brewster M.D. GFR/1.73 sq M predicted among non-blacks MDRD vol rate/area (S/P/Bld) 30 mL/min/{1.73_m2} Low >60 [facility] Comment on above: Result Comment: Non- GFR Calc eGFR is an estimated Glomerular Filtration Rate based on the value of the patient's serum creatinine. In outpatients, eGFR should be used as a helpful tool in screening for CKD. In inpatients or patients with acute renal failure, eGFR represents the GFR at the moment of the draw and should be used with caution. Performed By: #### C HEM8 #### Unless otherwise noted, all testing performed by [place] [phone] CLIA: [id number] Publications Editor: Donald Brewster M.D. Glucose mass conc 87 mg/dL Normal 70-99 [facility] Comment on above: Result Comment: This test result might be falsely depressed or falsely elevated on samples drawn from patients taking Sulfasalazine and Sulfapyridine. Venipuncture should occur prior to taking either of these drugs. Performed By: #### C HEM8 #### Unless otherwise noted, all testing performed by [place] [address] CLIA: [id number] Publications Editor: Donald Brewster M.D. Potassium molar conc 3.9 mmol/L Normal 3.5-5.1 [facility] Comment on above: Performed By: #### C HEM8 #### Unless otherwise noted, all testing performed by [place] [address] CLIA: [id number] Publications Editor: Donald Brewster M.D. Sodium molar conc 140 mmol/L Normal 135-145 [facility] Comment on above: Performed By: #### C HEM8 #### Unless otherwise noted, all testing performed by [place] [address] CLIA: [id number] Publications Editor: Donald Brewster M.D. Urea nitrogen mass conc 27 mg/dL High 8-25 [facility] Comment on above: Performed By: #### C HEM8 #### Unless otherwise noted, all testing performed by [place] [address] CLIA: [id number] Publications Editor: Donald Brewster M.D. CBCon 03-03-2018 Erythrocyte distribution width Auto Ratio (RBC) 15.5 % High 10 - 14.4 % [facility] Hematocrit Auto Volume Fraction (Bld) 32.9 % Low 34.4 - 44.8 % [facility] Hemoglobin mass conc (Bld) 11.2 g/dL Low 11.6 - 15.4 g/dL [facility] Interpretation and review of laboratory results Abnormal Invalid Interpretation Code [facility] MCH Auto Entitic mass (RBC) 33.2 pg Invalid Interpretation Code 27.9 - 33.9 pg [facility] MCHC Auto mass conc (RBC) 34.1 g/dL Invalid Interpretation Code 33.1 - 35.1 g/dL [facility] MCV Auto Entitic volume (RBC) 97.5 fL Invalid Interpretation Code [facility] Platelet mean volume Auto Entitic volume (Bld) 7.5 fL Invalid Interpretation Code [facility] Platelets Auto #/vol (Bld) 290 10*3/uL Invalid Interpretation Code [facility] RBC Auto #/vol (Bld) 3.38 10*6/uL Low [facility] WBC Auto #/vol (Bld) 6.6 10*3/uL Invalid Interpretation Code [facility] CBC w/o Diffon 03-03-2018 Erythrocyte distribution width Ratio (RBC) 15.5 % High 10.0-14.4 [facility] Comment on above: Performed By: #### C BCWOD #### Unless otherwise noted, all testing performed by [place] [address] CLIA: [id number] Publications Editor: Donald Brewster M.D. Hematocrit Volume Fraction (Bld) 32.9 % Low 34.4-44.8 [facility] Comment on above: Performed By: #### C BCWOD #### Unless otherwise noted, all testing performed by [place] [address] CLIA: [id number] Publications Editor: Donald Brewster M.D. Hemoglobin mass conc (Bld) 11.2 g/dL Low 11.6-15.4 [facility] Comment on above: Performed By: #### C BCWOD #### Unless otherwise noted, all testing performed by [place] [phone] CLIA: [id number] Publications Editor: Donald Brewster M.D. MCH Entitic mass (RBC) 33.2 pg Normal 27.9-33.9 [facility] Comment on above: Performed By: #### C BCWOD #### Unless otherwise noted, all testing performed by [place] [address] CLIA: [id number] Publications Editor: Donald Brewster M.D. MCHC mass conc (RBC) 34.1 g/dL Normal 33.1-35.1 [facility] Comment on above: Performed By: #### C BCWOD #### Unless otherwise noted, all testing performed by [place] [address] CLIA: [id number] Publications Editor: Donald Brewster M.D. MCV Entitic volume (RBC) 97.5 fL Normal 82.6-98.9 [facility] Comment on above: Performed By: #### C BCWOD #### Unless otherwise noted, all testing performed by [place] [address] CLIA: [id number] Publications Editor: Donald Brewster M.D. Platelet mean volume Entitic volume (Bld) 7.5 fL Normal 7.0-10.6 [facility] Comment on above: Performed By: #### C BCWOD #### Unless otherwise noted, all testing performed by [place] [address] CLIA: [id number] Publications Editor: Donald Brewster M.D. Platelets #/vol (Bld) 290 K/mcL Normal 162-402 [facility] Comment on above: Performed By: #### C BCWOD #### Unless otherwise noted, all testing performed by [place] [phone] CLIA: [id number] Publications Editor: Donald Brewster M.D. RBC #/vol (Bld) 3.38 M/mcL Low 3.7-5.0 [facility] Comment on above: Performed By: #### C BCWOD #### Unless otherwise noted, all testing performed by [place] [address] CLIA: [id number] Publications Editor: Donald Brewster M.D. WBC #/vol (Bld) 6.6 K/mcL Normal 3.4-10.6 [facility] Comment on above: Performed By: #### C BCWOD #### Unless otherwise noted, all testing performed by [facility] [address] [place], [place] [address] CLIA: [id number] Publications Editor: Donald Brewster M.D. Office Visit: Spine Visiton 12-11-2016 Protein mass conc Done Invalid Interpretation Code [facility] Work Phone: Tobacco smoking status NHIS Never smoker Invalid Interpretation Code [facility] Work Phone: [phone] Office Visiton 11-07-2016 Documentation of current medications (procedure) Done Invalid Interpretation Code [facility] Work Phone: [phone] Tobacco use CPHS Never smoker Invalid Interpretation Code [facility] Work Phone: Office Visit: Spine Visiton 10-23-2016 [facility] Work Phone: Tobacco smoking status NHIS Never smoker [facility] Work Phone: [phone] Office Visiton 07-31-2012 [facility] conc [facility] Work Phone: Protein mass conc Done [facility] [place] Work Phone: Office Visiton 01-10-2012 Tobacco smoking status NHIS never smoker [facility] Work Phone: Vital Signs Date Time Vital Sign Value Performing Clinician Facility 09-23-2024 10:47-0400 Body height 153.9 cm Neel Turpin MD Work Phone: [facility] 09-23-2024 10:47-0400 Body mass index (BMI) [Ratio] 53.56 kg/m2 Neel Turpin MD Work Phone: [facility] 09-23-2024 10:47-0400 Body weight 126.9 kg Neel Turpin MD Work Phone: [facility] 09-23-2024 10:47-0400 Diastolic blood pressure 68 mm[Hg] Neel Turpin MD Work Phone: [facility] 09-23-2024 10:47-0400 Heart rate 96 /min Neel Turpin MD Work Phone: [facility] 09-23-2024 10:47-0400 SaO2% (BldA) [Mass fraction] 94 % Neel Turpin MD Work Phone: [facility] 09-23-2024 10:47-0400 Systolic blood pressure 102 mm[Hg] Neel Turpin MD Work Phone: [facility] 08-19-2024 09:34-0400 Body mass index (BMI) [Ratio] 46.02 kg/m2 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 Work Phone: [facility] 08-19-2024 09:34-0400 Body weight 121.6 kg Kacy MaTyra VISUAL DISPLAY MANAGER[employer] Work Phone: [facility] 08-19-2024 09:34-0400 Diastolic blood pressure 86 mm[Hg] 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[employer] Work Phone: [facility] 08-19-2024 09:34-0400 Heart rate 88 /min Kacy MaTyra V[employer]UAL DISPLAY MANAGER[employer] Work Phone: [facility] 08-19-2024 09:34-0400 Respiratory rate 14 /min Kacy MaTyra [employer]UAL DISPLAY MANAGER[employer] Work Phone: [facility] 08-19-2024 09:34-0400 SaO2% (BldA) [Mass fraction] 94 % Kacy MaTyra V[employer]UAL DISPLAY MANAGER[employer] Work Phone: [facility] 08-19-2024 09:34-0400 Systolic blood pressure 124 mm[Hg] 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[employer] Work Phone: [facility] 07-06-2024 08:08-0400 Body mass index (BMI) [Ratio] 44.63 kg/m2 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[employer] Work Phone: [facility] 07-06-2024 08:08-0400 Body weight 117.94 kg 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[employer] Work Phone: [facility] 07-06-2024 08:08-0400 Diastolic blood pressure 76 mm[Hg] 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[employer] Work Phone: [facility] 07-06-2024 08:08-0400 Heart rate 86 /min 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[employer] Work Phone: [facility] 07-06-2024 08:08-0400 Systolic blood pressure 118 mm[Hg] 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[employer] Work Phone: [facility] 03-25-2024 10:57-0500 Body mass index (BMI) [Ratio] 49.19 kg/m2 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[employer] Work Phone: [facility] 03-25-2024 10:57-0500 Body weight 130 kg Kacy MaTyra VISUAL DISPLAY MANAGER[employer] Work Phone: [facility] 03-25-2024 10:57-0500 Diastolic blood pressure 84 mm[Hg] 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[employer] Work Phone: [facility] 03-25-2024 10:57-0500 Heart rate 95 /min Kacy MaTyra VISUAL DISPLAY MANAGER[employer] Work Phone: [facility] 03-25-2024 10:57-0500 Respiratory rate 16 /min Kacy MaTyra VISUAL DISPLAY MANAGER[employer] Work Phone: [facility] 03-25-2024 10:57-0500 SaO2% (BldA) [Mass fraction] 98 % 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[employer] Work Phone: [facility] 03-25-2024 10:57-0500 Systolic blood pressure 124 mm[Hg] 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[employer] Work Phone: [facility] 03-24-2024 10:32-0500 Body height 157.5 cm Paula Piasecki DO Work Phone: [facility] 03-24-2024 10:32-0500 Body mass index (BMI) [Ratio] 47.55 kg/m2 Paula Piasecki DO Work Phone: [facility] 03-24-2024 10:32-0500 Body temperature 97.5 [degF] Paula Piasecki DO Work Phone: [facility] 03-24-2024 10:32-0500 Body weight 117.94 kg Paula Piasecki DO Work Phone: [facility] 03-24-2024 10:32-0500 Diastolic blood pressure 91 mm[Hg] Paula Piasecki DO Work Phone: [facility] 03-24-2024 10:32-0500 Heart rate 128 /min Paula Piflorescki DO Work Phone: [facility] 03-24-2024 10:32-0500 SaO2% (BldA) [Mass fraction] 97 % Paula Piasecki DO Work Phone: [facility] 03-24-2024 10:32-0500 Systolic blood pressure 125 mm[Hg] Paula Pifloresckmoshe DO Work Phone: [facility] 03-05-2024 11:05-0500 Body height 157.5 cm Chris [place]ine MD Work Phone: [facility] 03-05-2024 11:05-0500 Body mass index (BMI) [Ratio] 46.84 kg/m2 Chris Antoine MD Work Phone: [facility] 03-05-2024 11:05-0500 Body weight 116.17 kg Chris [place] MD Work Phone: [facility] 03-05-2024 11:05-0500 Diastolic blood pressure 78 mm[Hg] Chris Antoine MD Work Phone: [facility] 03-05-2024 11:05-0500 Heart rate 87 /min Chris Antoine MD Work Phone: [facility] 03-05-2024 11:05-0500 SaO2% (BldA) [Mass fraction] 94 % Chris Antoine MD Work Phone: [facility] 03-05-2024 11:05-0500 Systolic blood pressure 124 mm[Hg] Chris [place] MD Work Phone: [facility] 09-23-2023 09:08-0400 Diastolic blood pressure 78 mm[Hg] 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[employer] Work Phone: [facility] 09-23-2023 09:08-0400 Heart rate 87 /min 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[employer] Work Phone: [facility] 09-23-2023 09:08-0400 Respiratory rate 18 /min 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[employer] Work Phone: [facility] 09-23-2023 09:08-0400 SaO2% (BldA) [Mass fraction] 93 % 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[employer] Work Phone: [facility] 09-23-2023 09:08-0400 Systolic blood pressure 118 mm[Hg] Kayc Tyra VISUAL DISPLAY MANAGER[employer] Work Phone: [facility] 09-16-2023 11:21-0400 Body height 160 cm Paula Walter DO Work Phone: [facility] 09-16-2023 11:21-0400 Body mass index (BMI) [Ratio] 46.41 kg/m2 Paula Walter DO Work Phone: [facility] 09-16-2023 11:21-0400 Body temperature 97.3 [degF] Paula Walter DO Work Phone: [facility] 09-16-2023 11:21-0400 Body weight 118.84 kg Paula Robledocki DO Work Phone: [facility] 09-16-2023 11:21-0400 Diastolic blood pressure 77 mm[Hg] Paula Piasecki DO Work Phone: [facility] 09-16-2023 11:21-0400 Heart rate 87 /min Paula Robledocki DO Work Phone: [facility] 09-16-2023 11:21-0400 SaO2% (BldA) [Mass fraction] 96 % Paula Robledocki DO Work Phone: [facility] 09-16-2023 11:21-0400 Systolic blood pressure 123 mm[Hg] Paula Piasecki DO Work Phone: [facility] 09-12-2023 10:40-0400 Body height 160 cm Chris [place] MD Work Phone: [facility] 09-12-2023 10:40-0400 Body mass index (BMI) [Ratio] 47.47 kg/m2 Chris [place]ine MD Work Phone: [facility] 09-12-2023 10:40-0400 Body weight 121.56 kg Chris Antoine MD Work Phone: [facility] 09-12-2023 10:40-0400 Diastolic blood pressure 80 mm[Hg] Chris [place] MD Work Phone: [facility] 09-12-2023 10:40-0400 Heart rate 96 /min Chris Antoine MD Work Phone: [facility] 09-12-2023 10:40-0400 SaO2% (BldA) [Mass fraction] 95 % Chris Antoine MD Work Phone: [facility] 09-12-2023 10:40-0400 Systolic blood pressure 138 mm[Hg] Chris [place]ine MD Work Phone: [facility] 09-11-2023 11:35-0400 SaO2% (BldA) [Mass fraction] 95 % Tony Menendez MD Work Phone: [facility] 09-11-2023 08:00-0400 Body temperature 97.2 [degF] Tony Menendez MD Work Phone: [facility] 09-11-2023 08:00-0400 Diastolic blood pressure 69 mm[Hg] Tony Menendez MD Work Phone: [facility] 09-11-2023 08:00-0400 Heart rate 92 /min Tony Menendez MD Work Phone: [facility] 09-11-2023 08:00-0400 Respiratory rate 18 /min Tony Menendez MD Work Phone: [facility] 09-11-2023 08:00-0400 Systolic blood pressure 111 mm[Hg] Tony Menendez MD Work Phone: [facility] 09-10-2023 05:45-0400 Body mass index (BMI) [Ratio] 46.98 kg/m2 Tony Menendez MD Work Phone: [facility] 09-10-2023 05:45-0400 Body weight 120.3 kg Tony Menendez MD Work Phone: [facility] 09-09-2023 08:35-0400 Body height 160 cm Tony Menendez MD Work Phone: [facility] 07-17-2023 09:42-0400 Body height 160.02 cm [facility] 07-17-2023 09:42-0400 Body mass index (BMI) [Ratio] 45.3 kg/m2 [facility] 07-17-2023 09:42-0400 Body temperature 97.1 [degF] [facility] 07-17-2023 09:42-0400 Body weight 116.11 kg [facility] 07-17-2023 09:42-0400 Diastolic blood pressure 42 mm[Hg] [facility] 07-17-2023 09:42-0400 Heart rate 82 /min [facility] 07-17-2023 09:42-0400 Respiratory rate 16 /min [facility] 07-17-2023 09:42-0400 SaO2% (BldA) [Mass fraction] 93 % [facility] 07-17-2023 09:42-0400 Systolic blood pressure 104 mm[Hg] [facility] 05-01-2023 10:15-0500 Body temperature 98.1 [degF] Neel Turpin MD Work Phone: [facility] 05-01-2023 10:15-0500 Body weight 119.75 kg Neel Turpin MD Work Phone: [facility] 05-01-2023 10:15-0500 Diastolic blood pressure 68 mm[Hg] Neel Turpin MD Work Phone: [facility] 05-01-2023 10:15-0500 Heart rate 88 /min Neel Turpin MD Work Phone: [facility] 05-01-2023 10:15-0500 Respiratory rate 16 /min Neel Turpin MD Work Phone: [facility] 05-01-2023 10:15-0500 Systolic blood pressure 118 mm[Hg] Neel Turpin MD Work Phone: [facility] 04-15-2023 11:17-0500 Body height 160 cm Paula Walter DO Work Phone: [facility] 04-15-2023 11:17-0500 Body mass index (BMI) [Ratio] 45.7 kg/m2 Paula Walter DO Work Phone: [facility] 04-15-2023 11:17-0500 Body temperature 96.8 [degF] Paula Walter DO Work Phone: [facility] 04-15-2023 11:17-0500 Body weight 117.03 kg Paula Hannai DO Work Phone: [facility] 04-15-2023 11:17-0500 Diastolic blood pressure 68 mm[Hg] Paula Vangasecki DO Work Phone: [facility] 04-15-2023 11:17-0500 Heart rate 100 /min Paula Robledocki DO Work Phone: [facility] 04-15-2023 11:17-0500 SaO2% (BldA) [Mass fraction] 95 % Paula Robledocki DO Work Phone: [facility] 04-15-2023 11:17-0500 Systolic blood pressure 130 mm[Hg] Paula Vangasecki DO Work Phone: [facility] 01-04-2023 10:21-0400 Diastolic blood pressure 66 mm[Hg] Kacy Older VISUAL DISPLAY MANAGER.[employer] Work Phone: [facility] 01-04-2023 10:21-0400 Heart rate 96 /min Kacy Older VISUAL DISPLAY MANAGER.[employer] Work Phone: [facility] 01-04-2023 10:21-0400 Respiratory rate 18 /min Kacy Older VISUAL DISPLAY MANAGER.[employer] Work Phone: [facility] 01-04-2023 10:21-0400 SaO2% (BldA) [Mass fraction] 92 % Kacy Older VISUAL DISPLAY MANAGER.[employer] Work Phone: [facility] 01-04-2023 10:21-0400 Systolic blood pressure 106 mm[Hg] Kacy Older VISUAL DISPLAY MANAGER.[employer] Work Phone: [facility] 12-28-2022 12:08-0400 Body height 160 cm Chris Antoine MD Work Phone: [facility] 12-28-2022 12:08-0400 Body mass index (BMI) [Ratio] 45.08 kg/m2 Chris Antoine MD Work Phone: [facility] 12-28-2022 12:08-0400 Body weight 115.44 kg Chris Antoine MD Work Phone: [facility] 12-28-2022 12:08-0400 Diastolic blood pressure 66 mm[Hg] Chris Antoine MD Work Phone: [facility] 12-28-2022 12:08-0400 Heart rate 89 /min Chris Antoine MD Work Phone: [facility] 12-28-2022 12:08-0400 SaO2% (BldA) [Mass fraction] 95 % Chris Antoine MD Work Phone: [facility] 12-28-2022 12:08-0400 Systolic blood pressure 112 mm[Hg] Chris Antoine MD Work Phone: [facility] 10-11-2022 11:19-0400 Body height 160.02 cm Neel Turpin Work Phone: YR-Uvdfjhuwgs-[address] Work Phone: 10-11-2022 11:19-0400 Body mass index (BMI) [Ratio] Patient Reason Not Done Neel Turpin Work Phone: CS-Rzteynrewh-Mifzw [address] Work Phone: 10-11-2022 11:19-0400 Diastolic blood pressure 86 mm[Hg] Neel Turpin Work Phone: HC-Dqvireplzd-Yqorv [address] Work Phone: 10-11-2022 11:19-0400 Heart rate 95 /min Neel Turpin Work Phone: DU-Eewzkpudcx-Gsnbr [address] Work Phone: 10-11-2022 11:19-0400 SaO2% (BldA) [Mass fraction] 89 % Neel Turpin Work Phone: RD-Uogehurncx-Icrxv [address] Work Phone: 10-11-2022 11:19-0400 Systolic blood pressure 118 mm[Hg] Neel Turpin Work Phone: JC-Lofkvcnpsj-Qwxhm nd [address] Work Phone: 10-03-2022 18:12-0400 Body height 159.9 cm Claus Browne MD Work Phone: [facility] 10-03-2022 18:12-0400 Body mass index (BMI) [Ratio] 46.15 kg/m2 Claus Browne MD Work Phone: [facility] 10-03-2022 18:12-0400 Body weight 118 kg Claus Browne MD Work Phone: [facility] 08-15-2022 08:09-0400 Body weight 120.2 kg Kacy Older VISUAL DISPLAY MANAGER.[employer] Work Phone: [facility] 08-15-2022 08:09-0400 Diastolic blood pressure 74 mm[Hg] Kacy Older VISUAL DISPLAY MANAGER.[employer] Work Phone: [facility] 08-15-2022 08:09-0400 Heart rate 72 /min Kacy Older VISUAL DISPLAY MANAGER.[employer] Work Phone: [facility] 08-15-2022 08:09-0400 Respiratory rate 16 /min Kacy Older VISUAL DISPLAY MANAGER.[employer] Work Phone: [facility] 08-15-2022 08:09-0400 Systolic blood pressure 116 mm[Hg] Kacy Older VISUAL DISPLAY MANAGER.[employer] Work Phone: [facility] 08-07-2022 15:16-0400 Body height 160.02 cm Neel Turpin Work Phone: [facility] Work Phone: 08-07-2022 15:16-0400 Body mass index (BMI) [Ratio] 45.17 kg/m2 Neel Turpin Work Phone: [facility] 3 DO Work Phone: 08-07-2022 15:16-0400 Body surface area Derived from formula 2.14 m2 Neel Turpin Work Phone: [facility] 3 DO Work Phone: 08-07-2022 15:16-0400 Body weight 115.67 kg Neel Turpin Work Phone: [facility] 3 DO Work Phone: 08-07-2022 15:16-0400 Diastolic blood pressure 62 mm[Hg] Neel Turpin Work Phone: [facility] 3 DO Work Phone: 08-07-2022 15:16-0400 Heart rate 88 /min Neel Turpin Work Phone: [facility] 3 DO Work Phone: 08-07-2022 15:16-0400 SaO2% (BldA) [Mass fraction] 96 % Neel Turpin Work Phone: [facility] 3 DO Work Phone: 08-07-2022 15:16-0400 Systolic blood pressure 86 mm[Hg] Neel Turpin Work Phone: [facility] 3 DO Work Phone: 08-06-2022 11:03-0400 Body height 160.02 cm Neel Turpin Work Phone: [facility] 3 DO Work Phone: 08-06-2022 11:03-0400 Body mass index (BMI) [Ratio] 46.55 kg/m2 Neel Turpin Work Phone: [facility] 3 DO Work Phone: 08-06-2022 11:03-0400 Body surface area Derived from formula 2.17 m2 Neel Turpin Work Phone: [facility] 3 DO Work Phone: 08-06-2022 11:03-0400 Body temperature 97.5 [degF] Neel Turpin Work Phone: [facility] 3 DO Work Phone: 08-06-2022 11:03-0400 Body weight 119.21 kg Neel Turpin Work Phone: [facility] 3 DO Work Phone: 08-06-2022 11:03-0400 Diastolic blood pressure 70 mm[Hg] Neel Turpin Work Phone: [facility] 3 DO Work Phone: 08-06-2022 11:03-0400 Heart rate 88 /min Neel Turpin Work Phone: [facility] 3 DO Work Phone: 08-06-2022 11:03-0400 SaO2% (BldA) [Mass fraction] 95 % Neel Turpin Work Phone: [facility] 3 DO Work Phone: 08-06-2022 11:03-0400 Systolic blood pressure 122 mm[Hg] Neel Turpin Work Phone: [facility] 3 DO Work Phone: 06-27-2022 11:05-0400 Body height 160.02 cm Neel D Turpin Work Phone: RB-Xxcymajmor-Djpns [address] Work Phone: 06-27-2022 11:05-0400 Body mass index (BMI) [Ratio] 46.97 kg/m2 Neel Reynoso Turpin Work Phone: LB-Akyacskpeb-[address]gt[address] Work Phone: 06-27-2022 11:05-0400 Body surface area Derived from formula 2.18 m2 Neel Reynoso Turpin Work Phone: PI-Nxqlchfpyw-Cpwdf [address] Work Phone: 06-27-2022 11:05-0400 Body weight 120.26 kg Neel Jacksonquez Work Phone: QH-Xbwipthdaj-Wtyzu [address] Work Phone: 06-27-2022 11:05-0400 Diastolic blood pressure 70 mm[Hg] Neel D Turpin Work Phone: BG-Vtgwrogqwe-Vcwyb [address] Work Phone: 06-27-2022 11:05-0400 Heart rate 76 /min Neel D Turpin Work Phone: TZ-Elwqcvbsio-Vnpnq nd [address] Work Phone: 06-27-2022 11:05-0400 SaO2% (BldA) [Mass fraction] 95 % Neel Marinaasquez Work Phone: EU-Ysfjxwapex-Iswfu [address] Work Phone: 06-27-2022 11:05-0400 Systolic blood pressure 116 mm[Hg] Neel D Turpin Work Phone: TJ-Mbrvpucmky-[address] Work Phone: 05-22-2022 11:19-0500 Body height 160.02 cm Neel Jessie Turpin [facility] 400 DO Work Phone: 05-22-2022 11:19-0500 Body mass index (BMI) [Ratio] 47.44 kg/m2 Neel Turpin [facility] Phone: [facility] 400 DO Work Phone: 05-22-2022 11:19-0500 Body surface area Derived from formula 2.19 m2 Neel Turpin Work Phone: [facility] 400 DO Work Phone: 05-22-2022 11:19-0500 Body temperature 96.9 [degF] Neel Turpin [facility] Phone[facility] 400 DO Work Phone: 05-22-2022 11:19-0500 Body weight 121.47 kg Neel Turpin [facility] Phone[facility] 400 DO Work Phone: 05-22-2022 11:19-0500 Heart rate 106 /min Neel Turpin [facility] Phone[facility] 400 DO Work Phone: 05-22-2022 11:19-0500 SaO2% (BldA) [Mass fraction] 94 % Neel Turpin Work Phone: [facility] 400 DO Work Phone: 04-27-2022 10:36-0500 Body weight 127.01 kg Neel Turpin MD Work Phone: [facility] 04-27-2022 10:36-0500 Diastolic blood pressure 67 mm[Hg] Neel Turpin MD Work Phone: [facility] 04-27-2022 10:36-0500 Heart rate 86 /min Neel Turpin MD Work Phone: [facility] 04-27-2022 10:36-0500 Respiratory rate 16 /min Neel Turpin MD Work Phone: [facility] 04-27-2022 10:36-0500 SaO2% (BldA) [Mass fraction] 95 % Neel Turpin MD Work Phone: [facility] 04-27-2022 10:36-0500 Systolic blood pressure 109 mm[Hg] Neel Turpin MD Work Phone: [facility] 04-27-2022 09:40-0500 Body height 160.02 cm [facility] 04-27-2022 09:40-0500 Body mass index (BMI) [Ratio] 46.5 kg/m2 [facility] 04-27-2022 09:40-0500 Body temperature 97 [degF] [facility] 04-27-2022 09:40-0500 Body weight 119.29 kg [facility] 04-27-2022 09:40-0500 Diastolic blood pressure 68 mm[Hg] [facility] 04-27-2022 09:40-0500 Heart rate 92 /min [facility] 04-27-2022 09:40-0500 Respiratory rate 16 /min [facility] 04-27-2022 09:40-0500 SaO2% (BldA) [Mass fraction] 98 % [facility] 04-27-2022 09:40-0500 Systolic blood pressure 141 mm[Hg] [facility] 04-23-2022 11:03-0500 Body height 160.02 cm Neel Turpin [facility] Phone[facility] Work Phone: 04-23-2022 11:03-0500 Body mass index (BMI) [Ratio] 49.35 kg/m2 Neel Turpin Work Phone: [facility] 400 DO Work Phone: 04-23-2022 11:03-0500 Body surface area Derived from formula 2.23 m2 Neel Turpin Work Phone: [facility] 400 DO Work Phone: 04-23-2022 11:03-0500 Body temperature 96.8 [degF] Neel Turpin Work Phone: [facility] 400 DO Work Phone: 04-23-2022 11:03-0500 Body weight 126.37 kg Neel Turpin Work Phone: [facility] 400 DO Work Phone: 04-23-2022 11:03-0500 Diastolic blood pressure 68 mm[Hg] Neel Turpin Work Phone: [facility] 400 DO Work Phone: 04-23-2022 11:03-0500 Heart rate 104 /min Neel Turpin Work Phone: [facility] DO Work Phone: 04-23-2022 11:03-0500 SaO2% (BldA) [Mass fraction] 92 % Neel Turpin Work Phone: [facility] 400 DO Work Phone: 04-23-2022 11:03-0500 Systolic blood pressure 130 mm[Hg] Neel Turpin Work Phone: [facility] 400 DO Work Phone: 04-16-2022 13:27-0500 Body temperature 37.0 {degrees_C} Neel Turpin Work Phone: [facility] DO Work Phone: Comment on above: NOTE: PATIENT RESULTS ARE NOT CORRECTED FOR TEMPERATURE. 04-16-2022 13:27-0500 SaO2% (BldA) [Mass fraction] 98 % Neel Turpin Work Phone: [facility] 400 DO Work Phone: 04-09-2022 11:11-0500 Body height 160.02 cm Neel Turpin Work Phone: [facility] DO Work Phone: 04-09-2022 11:11-0500 Body mass index (BMI) [Ratio] 47.65 kg/m2 Neel Turpin Work Phone: [facility] 400 DO Work Phone: 04-09-2022 11:11-0500 Body surface area Derived from formula 2.19 m2 Neel Turpin Work Phone: [facility] 400 DO Work Phone: 04-09-2022 11:11-0500 Body temperature 97.1 [degF] Neel Turpin Work Phone: [facility] 400 DO Work Phone: 04-09-2022 11:11-0500 Body weight 122.02 kg Neel Turpin Work Phone: [facility] 400 DO Work Phone: 04-09-2022 11:11-0500 Diastolic blood pressure 74 mm[Hg] Neel Turpin Work Phone: [facility] 400 DO Work Phone: 04-09-2022 11:11-0500 Heart rate 108 /min Neel Turpin Work Phone: [facility] 400 DO Work Phone: 04-09-2022 11:11-0500 SaO2% (BldA) [Mass fraction] 92 % Neel Turpin Work Phone: [facility] 400 DO Work Phone: 04-09-2022 11:11-0500 Systolic blood pressure 132 mm[Hg] Neel Turpin Work Phone: [facility] DO Work Phone: 03-28-2022 11:43-0500 Body height 160.02 cm Neel Turpin Work Phone: [facility]-Mhghqedjds-[address]edy [address] Work Phone: 03-28-2022 11:43-0500 Body mass index (BMI) [Ratio] 47.75 kg/m2 Neel Turpin Work Phone: HM-Iyhcnxfpuq-Axduv nd [address] Work Phone: 03-28-2022 11:43-0500 Body surface area Derived from formula 2.2 m2 Neel Turpin Work Phone: UZ-Marpfqrnvz-Xbayx nd [address] Work Phone: 03-28-2022 11:43-0500 Body weight 122.27 kg Neel Turpin Work Phone: HL-Uorlaxuwyx-Ckwzl nd [address] Work Phone: 03-28-2022 11:43-0500 Diastolic blood pressure 74 mm[Hg] Neel Turpin Work Phone: OE-Tntkrpqiow-Ifgqq nd [address] Work Phone: 03-28-2022 11:43-0500 Heart rate 108 /min Neel Turpin Work Phone: YZ-Dlchxexsfb-Hengh nd [address] Work Phone: 03-28-2022 11:43-0500 SaO2% (BldA) [Mass fraction] 97 % Neel Turpin Work Phone: FQ-Lwxrkxserc-Vxktx nd [address] Work Phone: 03-28-2022 11:43-0500 Systolic blood pressure 132 mm[Hg] Neel Turpin Work Phone: RE-Tzxxntmqhj-Dntrm nd [address] Work Phone: 03-02-2022 09:05-0500 Body height 160.[address] Neel Turpin Work Phone: 4(755)761-439378 [place] [address] 03-02-2022 09:05-0500 Body mass index (BMI) [Ratio] 50.3 kg/m2 Dr. Neel Turpin Work Phone: 2(128)982-010804 [place] [address] 03-02-2022 09:05-0500 Body temperature 97 [degF] Dr. Neel Turpin Work Phone: 7(588)834-964204 [place] [address] 03-02-2022 09:05-0500 Body weight 128.[address] Neel Turpin Work Phone: 8(093)700-688378 [place] [address] 03-02-2022 09:05-0500 Diastolic blood pressure 81 mm[Hg] Dr. Neel Turpin Work Phone: 0(089)115-532378 [place] [address] 03-02-2022 09:05-0500 Heart rate 101 /min Dr. Neel Turpin Work Phone: 9(701)154-234878 [place] [address] 03-02-2022 09:05-0500 Inhaled oxygen flow rate 2 L/min Dr. Neel Turpin Work Phone: 4(730)118-339204 [place] [address] 03-02-2022 09:05-0500 Respiratory rate 16 /min Dr. Neel Turpin Work Phone: 4(850)483-477878 [place] [address] 03-02-2022 09:05-0500 SaO2% (BldA) [Mass fraction] 98 % Dr. Neel Turpin Work Phone: [facility] 03-02-2022 09:05-0500 Systolic blood pressure 130 mm[Hg] Dr. Neel Turpin Work Phone: [facility] 02-22-2022 15:07-0500 Body temperature 97.59 [degF] Neel Turpin MD Work Phone: [facility] 02-22-2022 15:07-0500 Body weight 129 kg Neel Turpin MD Work Phone: [facility] 02-22-2022 15:07-0500 Diastolic blood pressure 78 mm[Hg] Neel Turpin MD Work Phone: [facility] 02-22-2022 15:07-0500 Heart rate 102 /min Neel Turpin MD Work Phone: [facility] 02-22-2022 15:07-0500 Respiratory rate 20 /min Neel Turpin MD Work Phone: [facility] 02-22-2022 15:07-0500 SaO2% (BldA) [Mass fraction] 96 % Neel Turpin MD Work Phone: [facility] 02-22-2022 15:07-0500 Systolic blood pressure 134 mm[Hg] Neel Turpin MD Work Phone: [facility] 01-29-2022 15:57-0500 Heart rate 107 /min Neel Turpin Other Phone: [facility] 01-29-2022 15:57-0500 Respiratory rate 18 /min Neel Turpin Other Phone: [facility] 01-29-2022 09:34-0500 Body temperature 97.7 [degF] Neel Turpin Other Phone: [facility] 01-29-2022 09:34-0500 Diastolic blood pressure 74 mm[Hg] Neel Turpin Other Phone: [facility] 01-29-2022 09:34-0500 SaO2% (BldA) [Mass fraction] 96 % Neel Turpin Other Phone: [facility] 01-29-2022 09:34-0500 Systolic blood pressure 121 mm[Hg] Neel Turpin Other Phone: [facility] 12-29-2021 09:51-0400 Body height 160.[address] Neel Turpin Work Phone: [facility] Work Phone: 12-29-2021 09:51-0400 Body mass index (BMI) [Ratio] 47.8 kg/m2 Dr. Neel Turpin Work Phone: 1(602)602-264678 [place] [address] 12-29-2021 09:51-0400 Body weight 122.[address] Neel Turpin Work Phone: 3(650)689-859378 [place] [address] 12-29-2021 09:51-0400 Heart rate 99 /min Dr. Neel Turpin Work Phone: 7(354)658-124978 [place] [address] 12-29-2021 09:51-0400 Respiratory rate 16 /min Dr. Neel Turpin Work Phone: 4(102)443-687078 [place] [address] 12-29-2021 09:51-0400 SaO2% (BldA) [Mass fraction] 100 % Dr. Neel Turpin Work Phone: 0(187)536-755878 [place] [address] 12-27-2021 18:16-0400 Body temperature 98 [degF] Dr. Neel Turpin Work Phone: 7(066)172-695678 [place] [address] 12-27-2021 18:16-0400 Diastolic blood pressure 90 mm[Hg] Dr. Neel Turpin Work Phone: 9(497)140-971478 [place] [address] 12-27-2021 18:16-0400 Heart rate 102 /min Dr. Neel Turpin Work Phone: 4(776)926-014578 [place] [address] 12-27-2021 18:16-0400 Respiratory rate 16 /min Dr. Neel Turpin Work Phone: 7(586)869-405478 [place] [address] 12-27-2021 18:16-0400 SaO2% (BldA) [Mass fraction] 96 % Dr. Neel Turpin Work Phone: 7(033)718-890878 [place] [address] 12-27-2021 18:16-0400 Systolic blood pressure 136 mm[Hg] Dr. Neel Turpin Work Phone: 9(552)403-432178 [place] [address] 12-27-2021 12:12-0400 Body mass index (BMI) [Ratio] 50.1 kg/m2 Dr. Neel Turpin Work Phone: [facility] 12-27-2021 12:12-0400 Body weight 128.[address] Neel Turpin Work Phone: 0(133)911-956478 [place] [address] 12-22-2021 14:32-0400 Body weight 122.[address] Neel Turpin Work Phone: 9(188)497-284878 [place] [address] 12-22-2021 14:01-0400 Body temperature 98.1 [degF] Dr. Neel uTrpin Work Phone: 8(518)759-309378 [place] [address] 12-22-2021 14:01-0400 Diastolic blood pressure 87 mm[Hg] Dr. Neel Turpin Work Phone: 5(636)317-427278 [place] [address] 12-22-2021 14:01-0400 Heart rate 82 /min Dr. Neel Turpin Work Phone: 8(979)731-096878 [place] [address] 12-22-2021 14:01-0400 Respiratory rate 18 /min Dr. Neel Turpin Work Phone: 3(032)013-938678 [place] [address] 12-22-2021 14:01-0400 SaO2% (BldA) [Mass fraction] 93 % Dr. Neel Turpin Work Phone: 2(013)676-620078 [place] [address] 12-22-2021 14:01-0400 Systolic blood pressure 131 mm[Hg] Dr. Neel Turpin Work Phone: 7(094)401-039878 [place] [address] 12-22-2021 12:40-0400 Inhaled oxygen flow rate 2 L/min Dr. Neel Turpin Work Phone: 8(534)670-134778 [place] [address] 12-21-2021 15:47-0400 Body mass index (BMI) [Ratio] 47.7 kg/m2 Dr. Neel Turpin Work Phone: 7(014)991-213278 [place] [address] 12-21-2021 15:05-0400 Body temperature 97.9 [degF] [facility] Work Phone: 12-21-2021 15:05-0400 Diastolic blood pressure 74 mm[Hg] [facility] Work Phone: 12-21-2021 15:05-0400 Heart rate 98 /min [facility] Work Phone: 12-21-2021 15:05-0400 Respiratory rate 20 /min [facility] Work Phone: 12-21-2021 15:05-0400 SaO2% (BldA) [Mass fraction] 92 % [facility] Work Phone: 12-21-2021 15:05-0400 Systolic blood pressure 136 mm[Hg] [facility] Work Phone: 12-21-2021 11:38-0400 Body height 160.02 cm [facility] Work Phone: 12-21-2021 11:38-0400 Body mass index (BMI) [Ratio] 47.8 kg/m2 [facility] Work Phone: 12-21-2021 11:38-0400 Body weight 122.46 kg [facility] Work Phone: 12-18-2021 19:49-0400 Body temperature 98.1 [degF] Neel Turpin MD Work Phone: [facility] 12-18-2021 19:49-0400 Diastolic blood pressure 66 mm[Hg] Neel Turpin MD Work Phone: [facility] 12-18-2021 19:49-0400 Heart rate 112 /min Neel Turpin MD Work Phone: [facility] 12-18-2021 19:49-0400 Respiratory rate 20 /min Neel Turpin MD Work Phone: [facility] 12-18-2021 19:49-0400 SaO2% (BldA) [Mass fraction] 96 % Neel Turpin MD Work Phone: [facility] 12-18-2021 19:49-0400 Systolic blood pressure 134 mm[Hg] Neel Turpin MD Work Phone: [facility] 12-04-2021 12:55-0400 Body temperature 96.4 [degF] Carissa Lee APRN.[employer] Work Phone: [facility] 12-04-2021 12:55-0400 Body weight 123.83 kg Carissa Lee APRN.[employer] Work Phone: [facility] 12-04-2021 12:55-0400 Diastolic blood pressure 94 mm[Hg] Carissa Lee APRN.[employer] Work Phone: [facility] 12-04-2021 12:55-0400 Heart rate 103 /min Carissa Lee APRN.[employer] Work Phone: [facility] 12-04-2021 12:55-0400 Respiratory rate 20 /min Carissa Lee APRN.[employer] Work Phone: [facility] 12-04-2021 12:55-0400 SaO2% (BldA) [Mass fraction] 98 % Carissa Lee APRN.[employer] Work Phone: [facility] 12-04-2021 12:55-0400 Systolic blood pressure 130 mm[Hg] Carissa Lee APRN.[employer] Work Phone: [facility] 12-01-2021 09:25-0400 Body temperature 97 [degF] [facility] Work Phone: 12-01-2021 09:25-0400 Diastolic blood pressure 82 mm[Hg] [facility] Work Phone: 12-01-2021 09:25-0400 Heart rate 93 /min [facility] Work Phone: 12-01-2021 09:25-0400 Respiratory rate 16 /min [facility] Work Phone: 12-01-2021 09:25-0400 SaO2% (BldA) [Mass fraction] 98 % [facility] Work Phone: 12-01-2021 09:25-0400 Systolic blood pressure 147 mm[Hg] [facility] Work Phone: 10-06-2021 09:01-0400 Body height 160.02 cm [facility] Work Phone: 10-06-2021 09:01-0400 Body mass index (BMI) [Ratio] 48.3 kg/m2 [facility] Work Phone: 10-06-2021 09:01-0400 Body temperature 96 [degF] [facility] Work Phone: 10-06-2021 09:01-0400 Body weight 123.83 kg [facility] Work Phone: 10-06-2021 09:01-0400 Diastolic blood pressure 76 mm[Hg] [facility] Work Phone: 10-06-2021 09:01-0400 Heart rate 87 /min [facility] Work Phone: 10-06-2021 09:01-0400 Respiratory rate 16 /min [facility] Work Phone: 10-06-2021 09:01-0400 SaO2% (BldA) [Mass fraction] 99 % [facility] Work Phone: 10-06-2021 09:01-0400 Systolic blood pressure 135 mm[Hg] [facility] Work Phone: 08-09-2021 11:06-0400 Body temperature 97.5 [degF] Neel Turpin MD Work Phone: [facility] 08-09-2021 11:06-0400 Body weight 123.83 kg Neel Turpin MD Work Phone: [facility] 08-09-2021 11:06-0400 Diastolic blood pressure 71 mm[Hg] Neel Turpin MD Work Phone: [facility] 08-09-2021 11:06-0400 Heart rate 100 /min Neel Turpin MD Work Phone: [facility] 08-09-2021 11:06-0400 Respiratory rate 16 /min Neel Turpin MD Work Phone: [facility] 08-09-2021 11:06-0400 Systolic blood pressure 131 mm[Hg] Neel Turpin MD Work Phone: [facility] 08-09-2021 09:20-0400 Body height 160.02 cm [facility] Work Phone: 08-09-2021 09:20-0400 Body mass index (BMI) [Ratio] 48.9 kg/m2 [facility] Work Phone: 08-09-2021 09:20-0400 Body temperature 97.5 [degF] [facility] Work Phone: 08-09-2021 09:20-0400 Body weight 125.19 kg [facility] Work Phone: 08-09-2021 09:20-0400 Diastolic blood pressure 63 mm[Hg] [facility] Work Phone: 08-09-2021 09:20-0400 Heart rate 89 /min [facility] Work Phone: 08-09-2021 09:20-0400 Respiratory rate 16 /min [facility] Work Phone: 08-09-2021 09:20-0400 SaO2% (BldA) [Mass fraction] 99 % [facility] Work Phone: 08-09-2021 09:20-0400 Systolic blood pressure 131 mm[Hg] [facility] Work Phone: 07-31-2012 13:16-0400 BP Diastolic 81 mm[Hg] [facility] Work Phone: 07-31-2012 13:16-0400 BP Systolic 129 mm[Hg] [facility] Work Phone: 07-31-2012 13:16-0400 Weight 111.13 kg [facility] Work Phone: 05-01-2012 09:31-0500 Pulse (Heart Rate) 74 /min [facility] Work Phone: 01-10-2012 12:56-0400 Height 170.18 cm [facility] Work Phone: Encounters Encounter Date Encounter Type Care Provider Facility Start: 09-23-2024 End: 09-23-2024 Patient encounter procedure Neel Turpin MD Work Phone: [facility] [place] Comment on above: Medicare annual well ness visit, subsequent (Primary Dx); DDD (degenerative disc disease), thoracolumbar; Type 2 diabetes mellitus with stage 4 chronic kidney disease, with long-term current use of insulin (HCC); Encounter for screening examination for other mental health and behavioral disorders; Chronic obstructive pulmonary disease, unspecified COPD type ([facility]); Essential hypertension; Mixed hyperlipidemia; Obesity, Class III, BMI 40-49.9 (morbid obesity) ([facility]); Chronic combined systolic and diastolic heart failure ([facility]); Depressive disorder Start: 09-16-2024 End: 09-16-2024 ambulatory NEEL TURPIN [facility] Start: 09-16-2024 End: 09-16-2024 Patient encounter procedure Tessa [facility] Work Phone: [facility] Comment on above: Type 2 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, with long-term current use of insulin (HCC) (Primary Dx) Start: 09-16-2024 End: 09-16-2024 Telemedicine consultation with patient Tessa Arun [facility] Work Phone: [facility] Start: 09-16-2024 End: 09-16-2024 ambulatory Peewee Louise Facility:[facility] Start: 09-11-2024 End: 09-11-2024 Telephone encounter Nataliia Ortiz MD Work Phone: [facility] [place] Start: 08-31-2024 End: 08-31-2024 Telephone encounter eNel Turpin MD Work Phone: [facility] [place] Comment on above: PT POC Start: 08-19-2024 End: 08-19-2024 ambulatory NEEL TURPIN [facility] Start: 08-19-2024 End: 08-19-2024 Patient encounter procedure Tessa Brock [facility] Work Phone: [facility] Comment on above: Type 2 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, with long-term current use of insulin (HCC) (Primary Dx) Start: 08-19-2024 End: 08-19-2024 Telemedicine consultation with patient Tessa Brock [facility] Work Phone: [facility] Start: 08-19-2024 End: 08-19-2024 Office outpatient visit 15 minutes Kacy Mary VISUAL DISPLAY MANAGER.[employer]ON[employer]OOKER Work Phone: [facility] [place] Comment on above: Bilateral lower extr emity edema (Primary Dx); Chronic combined systolic and diastolic heart failure (HCC); Chronic respiratory failure with hypoxia (HCC) Start: 08-19-2024 End: 08-19-2024 ambulatory KACY MARY [facility] Start: 08-17-2024 End: 08-17-2024 Telephone encounter Neel Turpin MD Work Phone: [facility] [place] Comment on above: Patient Update Start: 08-12-2024 End: 08-13-2024 Telephone encounter Neel Turpin MD Work Phone: [facility] [place] Comment on above: Patient Update Start: 08-05-2024 End: 08-05-2024 ambulatory KACY MARY [facility] Start: 07-29-2024 End: 07-29-2024 Telephone encounter Neel Turpin MD Work Phone: [facility] [place] Comment on above: Medication Problem Start: 07-22-2024 End: 07-22-2024 ambulatory Peewee Louise Facility:[facility] Start: 07-18-2024 End: 07-20-2024 Telephone encounter Neel Turpin MD Work Phone: [facility] [place] Comment on above: Medication Problem ( Ozempic) Start: 07-16-2024 ambulatory NEEL Curran [facility] Start: 07-16-2024 End: 07-16-2024 Patient encounter procedure Tessa Brock [facility] Work Phone: [facility] Comment on above: Type 2 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, with long-term current use of insulin (HCC) (Primary Dx) Start: 07-16-2024 End: 07-16-2024 Telemedicine consultation with patient Tessa Brock [facility] Work Phone: [facility] Start: 07-14-2024 End: 07-14-2024 Subsequent hospital visit by physician [place] [id number] Device [facility] 3 Comment on above: 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; Paroxysmal ventricular tachycardia Start: 07-14-2024 End: 07-14-2024 ambulatory [facility] Start: 07-06-2024 End: 07-06-2024 Patient encounter procedure Kacy Mary APRN.CNP Work Phone: [facility] [place] Comment on above: Adjustment disorder with anxiety (Primary Dx); Depressive disorder; Type 2 diabetes mellitus with stage 4 chronic kidney disease, with long-term current use of insulin (HCC); Fracture of unspecified part of neck of right femur, initial encounter for closed fracture (HCC); Frequent falls; Urinary tract infection without hematuria, site unspecified; Pneumonia due to infectious organism, unspecified laterality, unspecified part of lung Start: 07-06-2024 End: 07-06-2024 ambulatory KACY MARY [facility] Start: 06-29-2024 End: 06-29-2024 Telephone encounter Neel Turpin MD Work Phone: [facility] [place] Comment on above: PT POC Start: 06-24-2024 End: 06-24-2024 ambulatory Jayaprakas Aspen Facility:[facility] Start: 06-22-2024 End: 07-01-2024 Telephone encounter Neel Turpin MD Work Phone: [facility] [place] Comment on above: Home Health Orders Start: 06-17-2024 ambulatory Jausamapraheathers Aspen Facil ity:[facility] Start: 05-21-2024 ambulatory Ivon Evon Koram Facility :[facility] Start: 05-21-2024 End: 05-25-2024 Evaluation and management of inpatient Ivon Evon Koram Facility:[facility] Start: 05-20-2024 End: 05-20-2024 ambulatory Jayapras Aspen Facility:[facility] Start: 05-12-2024 End: 05-12-2024 ambulatory Horacio Mollison Facility:[facility] Start: 05-06-2024 End: 05-06-2024 Telephone encounter Tessa [facility] Work Phone: [facility] Comment on above: Missed Appointment Start: 05-02-2024 End: 05-21-2024 Evaluation and management of inpatient Jose Chi Gonzalo Facility:[facility] Start: 04-29-2024 End: 04-29-2024 ambulatory Gregory June Facility:[facility] Start: 04-28-2024 ambulatory Horacio Mollison Facility :[facility] Start: 04-28-2024 End: 05-02-2024 Evaluation and management of inpatient Horacio Mollison Facility:[facility] Start: 04-21-2024 End: 04-21-2024 ambulatory Jacarloss Aspen Facility:[facility] Start: 04-15-2024 End: 04-15-2024 Subsequent hospital visit by physician Santiago [facility] 3 Device Remote [facility] Building 3 Comment on above: 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; Paroxysmal ventricular tachycardia (Multi) Start: 04-15-2024 End: 04-15-2024 ambulatory [facility] Start: 04-13-2024 End: 04-13-2024 Telephone encounter Tessa Brock [facility] Work Phone: [facility] [place] Comment on above: Medication Problem ( /) Start: 04-08-2024 End: 04-08-2024 ambulatory NEEL Dempsey PAPI [facility] Start: 04-08-2024 End: 04-08-2024 Patient encounter procedure Tessa Brock [facility] Work Phone: [facility] Comment on above: Type 2 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, with long-term current use of insulin (HCC) (Primary Dx) Start: 04-08-2024 End: 04-08-2024 Telemedicine consultation with patient Tessa [facility] Work Phone: [facility] Start: 04-08-2024 End: 04-08-2024 Telephone encounter Tessa Brock [facility] Work Phone: [facility] Comment on above: Patient Request Appointment Start: 03-30-2024 End: 03-30-2024 Telephone encounter Kacy Mary APRN.CNP Work Phone: [facility] [place] Start: 03-25-2024 End: 03-25-2024 Patient encounter procedure Kacy Mary APRN.JERRY Work Phone: [facility] [place] Comment on above: Type 2 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, with long-term current use of insulin (HCC) (Primary Dx); Urinary frequency; DDD (degenerative disc disease), thoracolumbar; Other hyperlipidemia; Hypertensive heart disease with acute on chronic systolic congestive heart failure (HCC); Hyperparathyroidism, secondary renal (HCC); Obesity, Class III, BMI 40-49.9 (morbid obesity) (HCC); Encounter for immunization Start: 03-25-2024 End: 03-25-2024 ambulatory KACY MARY [facility] Start: 03-24-2024 End: 03-24-2024 Office outpatient visit 25 minutes Paula Walter DO Work Phone: [facility] Comment on above: Moderate COPD (chron ic obstructive pulmonary disease) (Multi) (Primary Dx); Dyspnea on exertion; Morbid obesity (Multi) Start: 03-24-2024 End: 03-24-2024 ambulatory [facility] Start: 03-05-2024 End: 03-05-2024 Office outpatient visit 25 minutes Chris Antoine MD Work Phone: [facility] Comment on above: Congestive heart spencer lure, unspecified HF chronicity, unspecified heart failure type (Primary Dx); Hypoxemia Start: 03-05-2024 End: 03-05-2024 ambulatory [facility] Start: 02-28-2024 End: 02-28-2024 ambulatory NEEL Dempsey TURPIN [facility] Start: 02-28-2024 End: 02-28-2024 Patient encounter procedure Tessa Brock [facility] Work Phone: [facility] Comment on above: Type 2 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, with long-term current use of insulin (HCC) (Primary Dx) Start: 02-28-2024 End: 02-28-2024 Telemedicine consultation with patient Tessa Arun [facility] Work Phone: [facility] Start: 02-26-2024 End: 02-27-2024 Telephone encounter Tessa Arun [facility] Work Phone: [facility] Comment on above: Missed Appointment Start: 02-26-2024 End: 02-26-[address] [facility] Facility:[facility] Start: 01-29-2024 End: 01-29-[address] [facility] Facility:[facility] Start: 01-20-2024 End: 01-20-2024 ambulatory [facility] Start: 01-15-2024 End: 01-15-2024 Patient encounter procedure Tessa Arun [facility] Work Phone: [facility] Comment on above: Type 2 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, with long-term current use of insulin (HCC) (Primary Dx) Start: 01-15-2024 End: 01-15-2024 Telemedicine consultation with patient Tessa [facility] Work Phone: [facility] Start: 01-15-2024 End: 01-15-2024 Subsequent hospital visit by physician Santiago Crow Device [facility] Building 3 Comment on above: 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 Facility:[facility] Start: 12-09-2023 End: 12-09-[address] 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; Paroxysmal ventricular tachycardia (Multi) Start: 11-06-2023 End: 11-06-2023 [facility] Facility:[facility] Start: 10-30-2023 End: 10-30-2023 ambulatory NEEL TURPIN [facility] Start: 10-30-2023 End: 10-30-2023 Patient encounter procedure Tessa Brock [facility] Work Phone: [facility] Comment on above: Type 2 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, with long-term current use of insulin (HCC) (Primary Dx) Start: 10-30-2023 End: 10-30-2023 Telemedicine consultation with patient Tessa Brock [facility] Work Phone: [facility] Start: 10-22-2023 Refill Neel huang MD Work Phone: [facility] [place] Comment on above: Refill Request Start: 10-16-2023 End: 10-16-2023 ambulatory Annalisa Stephen RN Work Phone: [employer] Start: 10-16-2023 Follow-up encounter Annalisa woodall RN Work Phone: [employer] Comment on above: Community Monitoring Outreach (Follow up ) Start: 10-09-2023 Telephone encounter Neel payne MD Work Phone: [facility] [place] Comment on above: PT Order Start: 10-09-2023 End: 10-09-2023 ambulatory Peewee Aspen Facility:[facility] Start: 09-30-2023 ambulatory Malissa langford RN Work Phone: [employer] Start: 09-30-2023 Telephone follow-up Malissa Madison RN Work Phone: [employer] Comment on above: Transition Of Care ( TCM / OON followup ) Initial phone contact for Transitional Care Management Start: 09-23-2023 Telephone encounter Kacy santiago VISUAL DISPLAY MANAGER.[employer]OOK[employer] Work Phone: [facility] [place] Comment on above: Results Start: 09-23-2023 End: 09-23-2023 Subsequent hospital visit by physician Iain [facility] Work Phone: Radiology Comment on above: Right hip pain [M25. 551] Start: 09-23-2023 End: 09-23-2023 ambulatory KACY MARY [facility] Start: 09-23-2023 End: 09-23-2023 Patient encounter procedure Kacy Mary VISUAL DISPLAY MANAGER.[employer] Work Phone: [facility] [place] Comment on above: Medicare annual well ness visit, subsequent (Primary Dx); Depressive disorder; Right hip pain; Fall on hard surface; Type 2 diabetes mellitus with stage 4 chronic kidney disease, with long-term current use of insulin (HCC); DDD (degenerative disc disease), thoracolumbar Start: 09-17-2023 Telephone encounter Neel payne MD Work Phone: [facility] [place] Comment on above: [place] Start: 09-16-2023 End: 09-16-2023 Office outpatient visit 25 minutes Paula Walter DO Work Phone: [facility] Comment on above: History of chronic o bstructive airway disease (Primary Dx); Nocturnal hypoxemia; Dyspnea on exertion; Morbid obesity (Multi) Start: 09-16-2023 End: 09-16-2023 ambulatory [facility] Start: 09-13-2023 Telephone encounter Neel payne MD Work Phone: [facility] [place] Comment on above: Patient Request Start: 09-12-2023 End: 09-12-2023 ambulatory [facility] Start: 09-12-2023 End: 09-12-2023 Office outpatient visit 25 minutes Chris Antoine MD Work Phone: [facility] Comment on above: Congestive heart spencer lure, unspecified HF chronicity, unspecified heart failure type (Multi) (Primary Dx) Start: 09-11-2023 Telephone encounter Neel payne MD Work Phone: [facility] [place] Comment on above: [facility] verbal orders. Start: 09-09-2023 End: 09-11-2023 Evaluation and management of inpatient Tony Menendez MD Work Phone: [facility] 3 Comment on above: Chest pain, unspecif ied type (Primary Dx); Chest pain due to myocardial ischemia, unspecified ischemic chest pain type; Type 2 diabetes mellitus with hyperglycemia, with long-term current use of insulin (Multi); Essential hypertension; Acute coronary microvascular dysfunction (Multi); Chest pain on breathing; Other chest pain; Localized edema; Shortness of breath Start: 09-04-2023 End: 09-04-2023 Patient encounter procedure Tessa [facility] Work Phone: [facility] Comment on above: Type 2 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, with long-term current use of insulin (HCC) (Primary Dx) Start: 09-04-2023 End: 09-04-2023 Telemedicine consultation with patient Tessa [facility] Work Phone: [facility] Start: 09-04-2023 ambulatory Tarasoo Graysophia alegre RN Work Phone: [employer] Comment on above: Community Monitoring Outreach (CDM) Start: 08-27-2023 ambulatory Annalisa Stephen RN Work Phone: [employer] Start: 08-27-2023 Follow-up encounter Annalisa woodall RN Work Phone: [employer] Comment on above: Community Monitoring Outreach (Follow up ) Start: 08-13-2023 ambulatory Annalisa Stephen RN Work Phone: [employer] Start: 08-13-2023 Follow-up encounter Annalisa woodall RN Work Phone: [employer] Comment on above: Community Monitoring Outreach (Follow up ) Start: 07-31-2023 End: 07-31-2023 Patient encounter procedure Tessa Brock [facility] Work Phone: [facility] Comment on above: Type 2 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, with long-term current use of insulin (HCC) (Primary Dx) Start: 07-31-2023 End: 07-31-2023 Telemedicine consultation with patient Tessa Brock [facility] Work Phone: [facility] Start: 07-29-2023 ambulatory Annalisa Stephen RN Work Phone: [employer] Start: 07-29-2023 Follow-up encounter Annalisa woodall RN Work Phone: [employer] Comment on above: Community Monitoring Outreach (Follow up ) Start: 07-25-2023 ambulatory Annalisa Stephen RN Work Phone: [employer] Start: 07-25-2023 Follow-up encounter Annalisa woodall RN Work Phone: [employer] Comment on above: Community Monitoring Outreach (Follow up ) Start: 07-17-2023 Telephone encounter Neel payne MD Work Phone: [facility] [place] Comment on above: Orders Start: 07-17-2023 End: 07-17-2023 Subsequent hospital visit by physician Santiago [facility] 3 Device Remote [facility] 3 Comment on above: 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; Paroxysmal ventricular tachycardia (Multi) Start: 07-17-2023 End: 07-17-2023 ambulatory [facility] Work Phone: Start: 07-17-2023 End: 07-17-2023 Patient encounter procedure [facility] Work Phone: Start: 07-16-2023 Refill Neel huang MD Work Phone: [facility] [place] Comment on above: Refill Request Start: 07-12-2023 ambulatory Annalisa Stephen RN Work Phone: [employer] Start: 07-12-2023 Follow-up encounter Annalisa woodall RN Work Phone: [employer] Comment on above: Community Monitoring Outreach (Follow up ) Start: 07-10-2023 ambulatory Annalisa Stephen RN Work Phone: [employer] Start: 07-10-2023 Follow-up encounter Annalisa woodall RN Work Phone: [employer] Comment on above: Community Monitoring Outreach (Follow up ) Start: 07-03-2023 End: 07-03-2023 ambulatory Tessa Brock [facility] Work Phone: [facility] Comment on above: Type 2 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, with long-term current use of insulin (HCC) (Primary Dx) Start: 07-03-2023 End: 07-03-2023 Telemedicine consultation with patient Tessa [facility] Work Phone: [facility] Start: 07-03-2023 Telephone encounter Tessa [facility] Work Phone: [facility] Comment on above: Missed Appointment Start: 06-26-2023 End: 06-26-2023 Patient encounter procedure Kang Vickers OD Work Phone: Optometry Comment on above: Type 2 diabetes armin itus without retinopathy (HCC) (Primary Dx); Nonexudative age-related macular degeneration, right eye, intermediate dry stage; Nonexudative age-related macular degeneration, left eye, advanced atrophic with subfoveal involvement; Pseudophakia, both eyes; Myopia, bilateral; Regular astigmatism, bilateral Start: 06-21-2023 End: 06-21-2023 ambulatory [facility] Work Phone: Start: 06-21-2023 End: 06-21-2023 Patient encounter procedure [facility] Work Phone: Start: 06-18-2023 ambulatory Annalisa Stephen RN Work Phone: [facility] Start: 06-18-2023 Follow-up encounter Annalisa woodall RN Work Phone: [employer] Comment on above: Community Monitoring Outreach (Follow up ) Start: 06-11-2023 ambulatory Annalisa Stephen RN Work Phone: [facility] Start: 06-11-2023 Follow-up encounter Annalisa woodall RN Work Phone: [employer] Comment on above: Community Monitoring Outreach (Follow up ) Start: 06-10-2023 Telephone encounter Tessa [facility] Work Phone: [facility] [place] Comment on above: medicaiton problem Start: 06-05-2023 End: 06-05-2023 ambulatory Tessa [facility] Work Phone: [facility] Comment on above: Type 2 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, with long-term current use of insulin (HCC) (Primary Dx) Start: 06-05-2023 End: 06-05-2023 Telemedicine consultation with patient Tessa Brock [facility] Work Phone: [facility] Start: 06-05-2023 Telephone encounter Tessa Brock [facility] Work Phone: [facility] Comment on above: Medication Update (Holli leondandre) Start: 05-24-2023 End: 05-24-2023 ambulatory [facility] Work Phone: Start: 05-24-2023 End: 05-24-2023 Patient encounter procedure [facility] Work Phone: Start: 05-22-2023 ambulatory Annalisa Stephen RN Work Phone: [facility] [place] Start: 05-22-2023 Follow-up encounter Annalisa woodall RN Work Phone: [employer] Comment on above: Community Monitorig Outreach (Follow up ) Start: 05-15-2023 ambulatory Annalisa Stephen RN Work Phone: [facility] [place] Start: 05-15-2023 Follow-up encounter Annalisa woodall RN Work Phone: [employer] Comment on above: Community Monitoring Outreach (Follow up ) Start: 05-14-2023 ambulatory Annalisa Stephen RN Work Phone: [facility] [place] Start: 05-14-2023 Follow-up encounter Annalisa woodall RN Work Phone: [employer] Comment on above: Community Monitoring Outreach (Follow up ) Start: 05-14-2023 Telephone encounter Tessa J[facility]anchristinederick[facility] Work Phone: [facility] Comment on above: Medication Problem Start: 05-14-2023 End: 05-14-2023 Subsequent hospital visit by physician Dago [facility] Comment on above: 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; Paroxysmal ventricular tachycardia (CMS/HCC) Start: 05-08-2023 Telephone encounter Tessa Arun [facility] Work Phone: [facility] Comment on above: Medication Update (Holli calvo) Start: 05-08-2023 End: 05-08-2023 ambulatory Tessa Brock [facility] Work Phone: [facility] Comment on above: Type 2 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, with long-term current use of insulin (HCC) (Primary Dx) Start: 05-08-2023 End: 05-08-2023 Telemedicine consultation with patient Tessa Brock [facility] Work Phone: [facility] Start: 05-02-2023 ambulatory Paz dixon RN Work Phone: [employer] Comment on above: Community Monitoring Outreach (CDM Enrollment ) Start: 05-01-2023 End: 05-01-2023 Patient encounter procedure Neel Turpin MD Work Phone: [facility] [place] Comment on above: Type 2 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, with long-term current use of insulin (HCC) (Primary Dx); Hypertensive heart disease with acute on chronic systolic congestive heart failure (HCC); CKD (chronic kidney disease) stage 4, GFR 15-29 ml/min (HCC); Hyperparathyroidism, secondary renal (HCC); Essential hypertension; Obesity, Class III, BMI 40-49.9 (morbid obesity) (HCC) Start: 04-26-2023 Chart abstracting Cherie Pascual ( [facility]) [facility] Start: 04-24-2023 End: 04-24-2023 ambulatory [facility] Work Phone: Start: 04-24-2023 End: 04-24-2023 Patient encounter procedure [facility] Work Phone: Start: 04-23-2023 Telephone encounter Neel payne MD Work Phone: [facility] [place] Comment on above: Genetic Testing Form Start: 04-17-2023 End: 04-17-2023 Subsequent hospital visit by physician [place] [id number] Device Remote [facility] 3 Comment on above: 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; Paroxysmal ventricular tachycardia (CMS/HCC) Start: 04-15-2023 End: 04-15-2023 Office outpatient visit 25 minutes Paula Walter DO Work Phone: [facility] Comment on above: Obstructive airway d isease (CMS/HCC) (Primary Dx); Dyspnea on exertion; Nocturnal hypoxemia due to obesity Start: 03-29-2023 End: 03-29-2023 ambulatory [facility] Work Phone: Start: 03-29-2023 End: 03-29-2023 [facility] Start: 03-01-2023 End: 03-01-2023 ambulatory [facility] Work Phone: Start: 03-01-2023 End: 03-01-2023 [facility] Start: 02-14-2023 [facility] Comment on above: Medication Problem Start: 02-14-2023 End: 02-14-2023 [facility] Comment on above: Type 2 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, with long-term current use of insulin (HCC) (Primary Dx) Start: 02-11-2023 Refill Neel huang MD Work Phone: [facility] [place] Comment on above: Refill Request Start: 01-30-2023 End: 01-30-2023 ambulatory [facility] Work Phone: Start: 01-30-2023 End: 01-30-2023 [facility] Start: 01-04-2023 End: 01-04-2023 Patient encounter procedure Kacy Berumen APRN.CNP Work Phone: [facility] [place] Comment on above: Type 2 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, with long-term current use of insulin (HCC) (Primary Dx); DDD (degenerative disc disease), thoracolumbar; Depressive disorder; Encounter for immunization Start: 01-04-2023 End: 01-04-2023 ambulatory [facility] Work Phone: Start: 01-04-2023 End: 01-04-2023 [facility] Start: 12-28-2022 End: 12-28-2022 Office outpatient visit 25 minutes Chris Antoine MD Work Phone: [facility] Comment on above: 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 Chris Antoine Fac ility:[id number] Start: 12-07-2022 End: 12-07-2022 ambulatory [facility] Work Phone: Start: 12-07-2022 End: 12-07-2022 [facility] Start: 12-07-2022 End: 12-07-2022 Patient encounter procedure Kacy Berumen APRN.C[employer]ON[employer] COOKER Work Phone: [facility] [place] Comment on above: Patient left without being seen (Primary Dx) Start: 11-28-2022 Telephone encounter Neel payne MD Work Phone: [facility] [place] Comment on above: Medication clarifica tion Start: 11-21-2022 Refill Neel huang MD Work Phone: [facility] [place] Comment on above: Refill Request Start: 11-07-2022 End: 11-07-2022 ambulatory [facility] Work Phone: Start: 11-07-2022 End: 11-07-2022 [facility] Start: 11-06-[address] Neel Turpin Facility:[id number] Start: 10-15-2022 Patient encounter procedure Neel Reynoso Papi Work Phone: KE-Tqgoylxmfv[facility] [place] Work Phone: Start: 10-15-[address] Jesus Narvaez cility:[id number] Start: 10-12-2022 End: 10-12-2022 ambulatory [facility] Work Phone: Start: 10-12-2022 End: 10-12-2022 Patient encounter procedure [facility] Work Phone: Start: 10-11-2022 Nursing evaluation o f patient and report Neel Jessie Turpin Work Phone: PN-[facility]ak[facility]lim[facility] [address] Work Phone: Start: 10-09-[address] Chris Antoine Fac ility:[id number] Start: 10-03-2022 End: 10-04-[address] Claus Browne Facility:[id number] Start: 10-03-2022 End: 10-04-2022 Subsequent hospital visit by physician Claus Browne MD Work Phone: [facility] Comment on above: Chronic combined sys tolic (congestive) and diastolic (congestive) heart failure (CMS/HCC); Hypertensive heart and chronic kidney disease with heart failure and stage 1 through stage 4 chronic kidney disease, or unspecified chronic kidney disease (CMS/HCC); Chronic systolic (congestive) heart failure (CMS/HCC); Left bundle-branch block, unspecified; Compression of vein; Other pericardial effusion (noninflammatory); Chronic kidney disease, stage 3 unspecified (CMS/HCC); Type 2 diabetes mellitus with diabetic chronic kidney disease (CMS/HCC); Hyperlipidemia, unspecified; Type 2 diabetes mellitus with diabetic neuropathy, unspecified (CMS/HCC); Morbid (severe) obesity due to excess calories (CMS/HCC); Body mass index (BMI) 45.0-49.9, adult (CMS/HCC); 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 Neel Turpin Facility:[id number] Start: 08-15-2022 End: 08-15-2022 ambulatory [facility] Work Phone: Start: 08-15-2022 End: 08-15-2022 Patient encounter procedure Kacy Berumen VISUAL DISPLAY MANAGER.[employer]OOK[employer] Work Phone: [facility] [place] Comment on above: Type 2 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, with long-term current use of insulin (HCC) (Primary Dx); Hypertensive heart disease with acute on chronic systolic congestive heart failure (HCC); Depressive disorder; DDD (degenerative disc disease), thoracolumbar Start: 08-14-2022 Office outpatient ne w 30 minutes Neel Turpin Work Phone: [facility] Work Phone: Start: 07-20-2022 End: 07-20-2022 ambulatory [facility] Work Phone: Start: 07-20-2022 End: 07-20-2022 Patient encounter procedure [facility] Start: 07-09-2022 Result Review Neel huang Work Phone: ET-Azeumwvxqq-Tpdcvp d [address] Work Phone: Start: 07-09-[address] [id number] Start: 06-27-2022 Office outpatient vi sit 25 minutes Neel Turpin Work Phone: MA-Ydfmptvqhb-Njceix d [address] Work Phone: Start: 06-22-2022 End: 06-22-2022 [facility] Start: 06-11-[address] Neel Turpin Facility:[id number] Start: 05-23-2022 End: 05-23-2022 ambulatory [facility] Work Phone: Start: 05-23-2022 End: 05-23-2022 [facility] Start: 05-22-2022 Office outpatient vi sit 25 minutes eNel Turpin Work Phone: [facility] [place] [address] [place] Work Phone: Start: 05-14-[address] Neel Turpin Facility:[id number] Start: 04-27-2022 End: 04-27-2022 Patient encounter procedure Neel Turpin MD Work Phone: [facility] [place] Comment on above: DDD (degenerative di sc disease), thoracolumbar (Primary Dx); Other hyperlipidemia; Depressive disorder; Type 2 diabetes mellitus with stage 4 chronic kidney disease, with long-term current use of insulin (HCC); Hyperparathyroidism, secondary renal (HCC); Obesity, Class III, BMI 40-49.9 (morbid obesity) ([facility]) Start: 04-27-2022 End: 04-27-2022 ambulatory [facility] Work Phone: Start: 04-27-2022 End: 04-27-2022 Patient encounter procedure [facility] Out Start: 04-23-2022 Office outpatient vi sit 25 minutes Neel Turpin Work Phone: [facility] 400 DO Work Phone: Start: 04-17-2022 Chart Update Neel huang Work Phone: [facility] 400 DO Work Phone: Start: 04-16-2022 ambulatory Paula Walter Facilit y:[id number] Start: 04-13-[address] Chris Santana ility:[id number] Start: 04-09-2022 Office consultation new/estab patient 80 min Neel Turpin Work Phone: [facility]-P[facility]-[place] 400 DO Work Phone: Start: 03-30-2022 End: 03-30-[address] Neel Turpin Work Phone: [facility] Work Phone: Start: 03-30-2022 End: 03-30-[address] Neel Turpin Work Phone: [facility] Start: 03-28-2022 Office outpatient ne w 45 minutes Neel Turpin Work Phone: MM-Tvrknwuocf-Qhkhxm d [address] Work Phone: Start: 03-02-2022 Telephone encounter Neel payne MD Work Phone: [facility] [place] Comment on above: Results Start: 03-02-2022 End: 03-02-[address] Neel Turpin [facility] Start: 02-26-2022 Telephone encounter Neel payne MD Work Phone: [facility] [place] Comment on above: plan of care Start: 02-22-2022 End: 02-22-2022 Patient encounter procedure Neel Turpin MD Work Phone: [facility] [place] Comment on above: CKD (chronic kidney disease) stage 4, GFR 15-29 ml/min ([facility]) (Primary Dx); DDD (degenerative disc disease), thoracolumbar; Type 2 diabetes mellitus with stage 4 chronic kidney disease, with long-term current use of insulin (HCC); Anemia due to chronic kidney disease, unspecified CKD stage; Essential hypertension; Mixed hyperlipidemia; Hypertensive heart disease with acute on chronic systolic congestive heart failure (HCC); Hypoxemia Start: 02-21-2022 Telephone encounter Neel payne MD Work Phone: [facility] [place] Comment on above: HH SN POC Start: 02-20-2022 Telephone encounter Neel payne MD Work Phone: [facility] [place] Comment on above: Orders Start: 02-02-2022 End: 02-02-[address] Neel Turpin Work Phone: [facility] Work Phone: Start: 02-02-2022 End: 02-02-[address] Neel Turpin Work Phone: [facility] Start: 01-26-2022 End: 01-26-2022 Emergency department patient visit Dr. Neel Turpin Facility:[id number] Start: 01-26-2022 End: 01-29-2022 Evaluation and management of inpatient Jairon Lopez [facility] 3 Med Surg [place] [address] 01 Start: 01-25-2022 End: 01-25-2022 ambulatory Issa Tavallaee Facility:[facility] Start: 01-25-2022 End: 01-25-2022 ambulatory MD Issa Bonilla Work Phone: [facility] Work Phone: Start: 01-25-2022 End: 01-25-2022 Departed Referred MD Issa Bonilla Work Phone: [facility] [place] Start: 01-22-2022 End: 01-22-2022 ambulatory Issajessie Bonilla Facility:[facility] Start: 01-22-2022 End: 01-22-2022 Departed Referred MD Issa Bonilla Work Phone: [facility] [place] Start: 12-29-2021 End: 12-29-2021 ambulatory No Pcp (Historical) Referring Physician Start: 12-29-2021 Telephone encounter Neel payne MD Work Phone: [facility] [place] Comment on above: Clinical Update Start: 12-29-2021 End: 12-29-[address] Neel Turpin Work Phone: [facility] Out Start: 12-27-2021 Non-patient / Non-visit Dr. Erica Turpin Work Phone: [facility] Inpatient Physicians Start: 12-26-2021 End: 12-27-2021 Non-patient / Non-visit Dr. Neel Turpin Work Phone: [facility] Inpatient Physicians Start: 12-25-2021 Non-patient / Non-visit Dr. Erica Turpin Work Phone: [facility]patient Physicians Start: 12-25-2021 End: 12-27-2021 Evaluation and management of inpatient Dr. Neel Turpin Work Phone: [facility] Surgical 3 Start: 12-25-2021 Telephone encounter Neel payne MD Work Phone: [facility] [place] Comment on above: Medication Problem Start: 12-22-2021 Telephone encounter Neel payne MD Work Phone: Internal [facility] Comment on above: Orders Start: 12-22-2021 Non-patient / Non-visit Dr. Erica Turpni Work Phone: [facility] Inpatient Physicians Start: 12-21-2021 Non-patient / Non-visit Dr. Erica Turpin Work Phone: [facility] Inpatient Physicians Start: 12-21-2021 End: 12-22-2021 Evaluation and management of inpatient [facility] 3 Start: 12-21-2021 observation encounter [facility] Work Phone: Start: 12-19-2021 Telephone encounter Kacy Berumen APRN.CNP Work Phone: Internal [facility] Comment on above: Results Start: 12-19-2021 End: 12-19-2021 Subsequent hospital visit by physician [facility] Work Phone: Radiology Comment on above: Acute leg pain, righ t [M79.604] Start: 12-19-2021 End: 12-19-2021 Patient encounter procedure [facility] Start: 12-18-2021 End: 12-18-2021 Patient encounter procedure Neel Turpin MD Work Phone: [facility] [place] Comment on above: Acute leg pain, righ t (Primary Dx); Depressive disorder; DDD (degenerative disc disease), thoracolumbar Start: 12-04-2021 End: 12-04-2021 Patient encounter procedure Carissa Lee [employer]OOKER Work Phone: [facility] Comment on above: Pain of right lower extremity (Primary Dx) Start: 12-01-2021 End: 12-01-2021 Patient encounter procedure [facility] Start: 11-03-2021 End: 11-03-2021 ambulatory [facility] Work Phone: Start: 11-03-2021 End: 11-03-2021 Patient encounter procedure [facility] Start: 10-06-2021 End: 10-06-2021 Patient encounter procedure [facility] Start: 09-08-2021 End: 09-08-2021 Patient encounter procedure [facility] Start: 08-09-2021 End: 08-09-2021 Patient encounter procedure Neel Turpin MD Work Phone: [facility] [place] Comment on above: Essential hypertensi on (Primary Dx); Type 2 diabetes mellitus with stage 4 chronic kidney disease, with long-term current use of insulin (HCC); DDD (degenerative disc disease), thoracolumbar; Mixed hyperlipidemia Start: 07-14-2021 End: 07-14-2021 Patient encounter procedure [facility] Start: 07-06-2021 Telephone encounter Neel payne MD Work Phone: [facility] [place] Comment on above: Lab Orders Start: 06-14-2021 End: 06-14-2021 Patient encounter procedure [facility] Start: 05-17-2021 End: 05-17-2021 Patient encounter procedure [facility] Start: 04-19-2021 End: 04-19-2021 Patient encounter procedure [facility] Start: 03-22-2021 End: 03-22-2021 Patient encounter procedure [facility] Start: 02-22-2021 Patient encounter procedure [facility] Start: 04-12-2020 End: 04-12-[address] Peña Work Phone: [facility] Start: 04-24-2018 End: 04-25-2018 Patient encounter procedure Bernadette Lemon Facility:[facility] Start: 04-15-2018 Patient encounter procedure Itri A Bandar Facility:[place] Start: 04-14-2018 Patient encounter procedure Itri A Bandar Facility:[place] Start: 04-14-2018 End: 04-14-2018 [facility] Work [facility]: [facility] Start: 03-03-2018 End: 03-03-2018 [facility] Work Phone: [facility] Start: 09-27-2011 Evaluation and manag ement of inpatient [facility]- Procedures Date Procedure Procedure Detail Performing Clinician Start: 09-23-2024 Hemoglobin A1c/Hemoglobin.total in Blood Neel Turpin MD Work Phone: Start: 08-05-2024 Follow-up visit Follow Up KACY [place] Start: 03-25-2024 Hemoglobin A1c/Hemoglobin.total in Blood Kacy Mary VISUAL DISPLAY MANAGER.[employer] COOKER Work Phone: Start: 03-25-2024 [employer] COVI D-19 VACCINE AGE 12+ YR (COMIRNATY) Kacy Mary VISUAL DISPLAY MANAGER.[employer]ONUT COOKER Work Phone: Start: 11-26-2023 Prgrmg eval implanta ble in prsn dual lead dfb Claus Browne MD Work Phone: Start: 09-23-2023 Radex hip unilateral with pelvis 2-3 views Kacy Mary VISUAL DISPLAY MANAGER.[employer] COOKER Work Phone: Start: 09-23-2023 Hemoglobin A1c/Hemoglobin.total in Blood Kayc ReddTyra VISUAL DISPLAY MANAGER.[employer] COOKER Work Phone: Start: 09-23-2023 Adult depression scr eening assessment Neel Turpin MD Work Phone: Start: 09-11-2023 Glucose quantitative blood xcpt reagent strip Yrn Hernandez MD Work Phone: Start: 09-11-2023 Glucose quantitative blood xcpt reagent strip Yrn Hernandez MD Work Phone: Start: 09-11-2023 EXTRA TUBES Yrn atkins MD Work Phone: Start: 09-11-2023 LAVENDER TOP Yrn atkins MD Work Phone: Start: 09-11-2023 Basic metabolic pane l calcium total Monserrat A RogerNatalie VISUAL DISPLAY MANAGER-[employer] Work Phone: Start: 09-10-2023 Glucose quantitative blood xcpt reagent strip Yrn Hernandez MD Work Phone: Start: 09-10-2023 Glucose quantitative blood xcpt reagent strip Yrn Hernandez MD Work Phone: Start: 09-10-2023 Glucose quantitative blood xcpt reagent strip Yrn Hernandez MD Work Phone: Start: 09-10-2023 Glucose quantitative blood xcpt reagent strip Yrn Hernandez MD Work Phone: Start: 09-10-2023 Pulmonary perfusion imaging particulate Monserrat A Lo-Natalie VISUAL DISPLAY MANAGER-[employer] Work Phone: Start: 09-10-2023 Glucose quantitative blood xcpt reagent strip Yrn Hernandez MD Work Phone: Start: 09-10-2023 End: 09-10-2023 Basic metabolic panel calcium total Monserrat A Lo-Natalie VISUAL DISPLAY MANAGER-[employer] Work Phone: Start: 09-09-2023 Glucose quantitative blood xcpt reagent strip Yrn Hernandez MD Work Phone: Start: 09-09-2023 End: 09-09-2023 Glucose quantitative blood xcpt reagent strip Yrn Hernandez MD Work Phone: Start: 09-09-2023 Dup-scan xtr veins c omplete bilateral study Monserrat Prince VISUAL DISPLAY MANAGER-[employer] Work Phone: Start: 09-09-2023 Cardiac catheterizat ion study Monserrat Prince VISUAL DISPLAY MANAGER-[employer] Work Phone: Start: 09-09-2023 Glucose quantitative blood xcpt reagent strip Yrn Hernandez MD Work Phone: Start: 09-09-2023 Prothrombin time Monserrat Prince VISUAL DISPLAY MANAGER-[employer] Work Phone: Start: 09-09-2023 Assay of troponin quantitative Tony Menendez MD Work Phone: Start: 09-09-2023 Ecg routine ecg w/le ast 12 lds trcg only w/o i&r Tony Menendez MD Work Phone: Start: 09-09-2023 Radiologic exam ches t single view Tony Menendez MD Work Phone: Start: 09-09-2023 Basic metabolic pane l calcium total Tony Menendez MD Work Phone: Start: 09-09-2023 Lipid panel Monserrat Novak VISUAL DISPLAY MANAGER-[employer] Work Phone: Start: 09-09-2023 Troponin I.cardiac p epifanio - Serum or Plasma by High sensitivity method Tony Menendez MD Work Phone: Start: 09-09-2023 Ecg routine ecg w/le ast 12 lds trcg only w/o i&r Tony Menendez MD Work Phone: Start: 09-09-2023 Lipid 1996 panel - S michael or Plasma Tony Menendez MD Work Phone: Start: 02-27-2024 Prgrmg eval implanta ble in prsn dual lead dfb Claus Browne MD Work Phone: Start: 05-01-2023 Hemoglobin A1c/Hemoglobin.total in Blood Neel Turpin MD Work Phone: Start: 01-04-2023 INFLUENZA VACCINE, P RSV FREE, AGE 65+ YR, HIGH DOSE, QUADRIVALENT (FLUZONE HIGH-DOSE) Kacy Older VISUAL DISPLAY MANAGER.[employer]OOKER Work Phone: Start: 01-04-2023 Hemoglobin A1c/Hemoglobin.total in Blood Kacy Older VISUAL DISPLAY MANAGER.[employer]OOK[employer] Work Phone: Start: 12-28-2022 Ecg routine ecg w/le ast 12 lds w/i&r Chris Antoine MD Work Phone: Start: 10-04-2022 Glucose [Mass/volume ] in Serum or Plasma Claus Browne MD Work Phone: Start: 10-04-2022 Echocardiography Whitne y Florencio Diaz [facility] Work Phone: Start: 10-04-2022 CHEST 2 VIEW Aldo Florencio Diaz VISUAL DISPLAY MANAGER-[facility] Work Phone: Start: 10-04-2022 Glucose [Mass/volume ] [...] Start: 08-15-2022 Hemoglobin A1c/Hemoglobin.total in Blood Kacy Older VISUAL DISPLAY MANAGER.[employer]OOK[employer] Work Phone: Start: 01-26-2022 End: 01-26-2022 EKG impression Reynaldo Bolaños Start: 12-27-2021 Fluoroscopic guidance Jessie Turpin Work Phone: Start: 12-27-[address] Usman Turpin Work Phone: Start: 12-27-2021 Local anesthetic lum bar epidural block Dr. Neel Turpin Work Phone: Start: 12-22-2021 MRI of joint of lowe r extremity Dr. Neel Turpin Work Phone: Start: 12-22-2021 MRI of lumbar spine Dr. Neel Turpin Work Phone: Start: 12-21-2021 Plain x-ray of pelvi s and lower extremity Start: 12-19-2021 Radiologic exam knee complete 4/more views Neel Turpin MD Work Phone: Start: 08-09-2021 Hemoglobin A1c/Hemoglobin.total in Blood Neel Turpin MD Work Phone: Start: 08-10-2020 Adult depression scr eening assessment Neel Turpin MD Work Phone: Start: 04-14-2018 Urinalysis Meliza Heller n Work Phone: Start: 03-03-2018 End: 03-03-2018 Basic metabolic 2000 panel - Serum or Plasma Meliza Portillo Work Phone: Start: 03-03-2018 End: 03-03-2018 Complete blood count (hemogram) panel - Blood by Automated count Meliza Portillo Work Phone: Start: 11-07-2016 End: 11-21-2016 Arthrocentesis aspir&/inj small jt/bursa w/o us Gregory Villanueva Work Phone: Start: 11-07-2016 End: 11-21-2016 Drain/inject, joint/bursa Gregory Villanueva Work Phone: Appendectomy Neel hewitt Work Phone: Arthroplasty of knee Neel Jessie MarinaTurpin Work Phone: Comment on above: X2; Hysterectomy Neel Jessie Rodriguez uyinka Work Phone: Ligation of varicose vein Vi ctmychal Jessie MarinaTurpin Work Phone: Operative procedure on ankle Neel Jessie Turpin Work Phone: Comment on above: X2; Repair of shoulder Neel Turpin Work Phone: Tonsillectomy Neel huang Work Phone: Ureteroplasty Neel huang Work Phone: Plan of Treatment Date Care Activity Detail Author Start: 09-23-2025 Annual PCP Team Chronic Disease Visit Annual PCP Team Chronic Disease Visit [facility] Start: 09-23-2025 Anxiety Screening Anxiety Screening [facility] Start: 09-23-2025 Covid-19 Vaccine () Covid-19 Vaccine () [facility] Comment on above: Postponed from 09/22/2024 (Declined at t his time) Start: 09-23-2025 Diabetic foot examination Diabetic Foot Exam [facility] Start: 09-23-2025 Medicare Annual Wellness Visit Medicare Annual Wellness Visit [facility] Start: 08-19-2025 Annual PCP Team Chronic Disease Visit Annual PCP Team Chronic Disease Visit [facility] Start: 08-05-2025 Annual PCP Team Chronic Disease Visit Annual PCP Team Chronic Disease Visit [facility] Start: 07-06-2025 Annual PCP Team Chronic Disease Visit Annual PCP Team Chronic Disease Visit [facility] Start: 07-06-2025 BP Controlled (<130/80) BP Controlled (<130/80) [facility] Start: 06-17-2025 Creatinine measurement [facility] Start: 06-17-2025 Potassium measurement Potassium Level [facility] Start: 06-10-2025 Complete blood count Hemoglobin/Hematocrit [facility] Start: 03-26-2025 Hemoglobin A1c measurement HbA1C [facility] Start: 03-25-2025 Annual PCP Team Chronic Disease Visit Annual PCP Team Chronic Disease Visit [facility] Start: 01-25-2025 End: 01-25-2025 Patient encounter procedure 01/25/2025 11:20 AM EST Office Visit [facility] [place] [address] [place] [address] Kacy Mary, VISUAL DISPLAY MANAGER.COCONUT COOKER [address] [place] [address] 4 mo follow up [facility] [place] Comment on above: 4 mo follow up Start: 12-31-2024 End: 12-31-2024 Patient encounter procedure 12/31/2024 11:00 AM EDT Office Visit [facility] [address]nd [place] [address] Claus Browne MD [address] [facility] [address], [address] [id number] [facility] Start: 11-25-2024 Creatinine measurement [facility] Start: 11-25-2024 Potassium measurement Potassium Level [facility] Start: 11-16-2024 Influenza vaccination Influenza Vaccine (#1) [facility] Start: 11-04-2024 End: 11-04-2024 Patient encounter procedure 11/04/2024 3:00 PM EDT [facility] [address] [phone] [facility] [address] [place] [address] DM f/up [facility] Comment on above: DM f/up Start: 10-07-2024 End: 01-06-2025 Lipid 1996 panel - Serum or Plasma LIPID PANEL, FASTING Lab Routine Mixed hyperlipidemia Expected: 10/07/2024, Expires: 01/06/2025 [facility] Work Phone: Comment on above: Expected: 10/07/2024, Expires: Start: 09-23-2024 Medicare Annual Wellness Visit Medicare Annual Wellness Visit (AWV) [facility] Start: 09-23-2024 End: 09-23-2024 Patient encounter procedure 09/23/2024 10:40 AM EDT Office Visit [facility] [place] [address] [place] [address] Neel Turpin MD [address] [place] [address] medicare 6 months [facility] [place] Comment on above: medicare 6 months Start: 09-22-2024 Annual PCP Team Chronic Disease Visit Annual PCP Team Chronic Disease Visit [facility] Start: 09-22-2024 Anxiety Screening Anxiety Screening [facility] Start: 09-22-2024 BP Controlled (<130/80) BP Controlled (<130/80) [facility] Start: 09-22-2024 Covid-19 Vaccine ( season) Covid-19 Vaccine () [facility] Start: 09-22-2024 Depression Screening Depression Screening [facility] Start: 09-22-2024 Medicare Annual Wellness Visit Medicare Annual Wellness Visit [facility] Start: 09-22-2024 RSV Vaccine (1 - 1-dose 60+ series) RSV Vaccine (1 - 1-dose 60+ series) [facility] Comment on above: Postponed from 2004 (Declined at t his time) Start: 09-22-2024 RSV Vaccine (1 - 1-dose 75+ series) RSV Vaccine (1 - 1-dose 75+ series) [facility] Comment on above: Postponed from 02/05/2019 (Declined at t his time) Start: 09-16-2024 End: 09-16-2024 Patient encounter procedure 09/16/2024 3:00 PM EDT [facility] [address] [phone] Tessa Brock [facility] [address] [place] [address] DM f/up [facility] Comment on above: DM f/up Start: 09-10-2024 Creatinine measurement [facility] Start: 09-10-2024 Potassium measurement Potassium Level [facility] Start: 09-09-2024 Complete blood count Hemoglobin/Hematocrit [facility] Start: 09-09-2024 Creatinine measurement Creatinine Level [facility] Start: 09-09-2024 Potassium measurement Potassium Level [facility] Start: 09-08-2024 Hepatitis B surface antibody level LDL Cholesterol [facility] Start: 09-08-2024 Lipid panel Lipid Panel [facility] Start: 09-02-2024 End: 09-02-2024 Patient encounter procedure 09/02/2024 10:00 AM EDT Office Visit [facility] [address] [place] [phone] Carlos Metcalf, VISUAL DISPLAY MANAGER-COCONUT COOKER, DNP [address], [address] [place] [address] [facility] Start: 08-19-2024 End: 08-19-2024 Patient encounter procedure [facility] Comment on above: DM f/up weight gain 8 pounds , crackles left lower lung, SPO2 drops with activity (per home health nurse) Start: 08-05-2024 End: 08-05-2024 Patient encounter procedure 08/05/2024 10:20 AM EDT Office Visit [facility] [place] [address] [place] [address] Kacy Mary, VISUAL DISPLAY MANAGER.COCONUT COOKER [address] [place] [address] 4 week follow up [facility] [place] Comment on above: 4 week follow up Start: 07-16-2024 End: 07-16-2024 Telephone follow-up 07/16/2024 11:00 AM EDT [facility] [address] [place] [address] Tessa Brock, [facility] [address] [place] [address] follow up-phone call [phone] [facility] Comment on above: follow up-phone call [phone] Start: 07-14-2024 End: 07-14-2024 Patient encounter procedure 07/14/2024 10:30 AM EDT Office Visit [facility] [address] [place] [address] Paula Walter DO [address] [place] [address] [facility] Start: 07-06-2024 End: 07-06-2024 Patient encounter procedure 07/06/2024 8:00 AM EDT Office Visit [facility] [place] [address] [place], [place] [address] Kacy Mary, VISUAL DISPLAY MANAGER.COCONUT COOKER [address] [place] [address] follow up from [facility] for right leg [facility] [place] Comment on above: follow up from [facility] for right leg Start: 06-25-2024 Glaucoma screening Dilated Retinal Exam [facility] Start: 06-23-2024 Hemoglobin A1c measurement [facility] Start: 06-09-2024 Diabetic foot examination Diabetic Foot Exam [facility] Start: 06-04-2024 End: 06-04-2024 Patient encounter procedure [facility] Start: 05-14-2024 Creatinine measurement [facility] Start: 05-14-2024 Potassium measurement Potassium Level [facility] Start: 05-06-2024 End: 05-06-2024 Patient encounter procedure 05/06/2024 2:00 PM [facility] [address] [phone] Tessa Brock, [facility] [address] [place] [address] DM f/up [facility] Comment on above: DM f/up Start: 05-01-2024 Annual PCP Team Chronic Disease Visit Annual PCP Team Chronic Disease Visit [facility] Start: 05-01-2024 BP Controlled (<130/80) BP Controlled (<130/80) [facility] Start: 05-01-2024 Covid-19 Vaccine ( season) Covid-19 Vaccine () [facility] Comment on above: Postponed from 11/16/2022 (Declined at t his time) Start: 04-08-2024 End: 04-08-2024 Patient encounter procedure 04/08/2024 2:00 PM EST [facility] [address] [phone] [facility] [address], [place] [phone] DM f/up [facility] Comment on above: DM f/up Start: 03-25-2024 End: 06-24-2024 Bacteria identified in Urine by Culture BACTERIAL CULTURE, URINE Microbiology Routine Urinary frequency Expected: 03/25/2024, Expires: 06/24/2024 [facility] Comment on above: Expected: 03/25/2024, Expires: Start: 03-25-2024 Hemoglobin A1c measurement HbA1C [facility] Start: 03-25-2024 End: 06-24-2024 Urinalysis complete panel - Urine URINALYSIS (WITH MICROSCOPIC) WITH CULTURE IF INDICATED Lab Routine Urinary frequency Expected: 03/25/2024, Expires: 06/24/2024 [facility] Work Phone: Comment on above: Expected: 03/25/2024, Expires: 5 Start: 03-25-2024 End: 03-25-2024 Patient encounter procedure 03/25/2024 11:00 AM EST Office Visit [facility] [place] [address] [place] [id number] Kacy Mary, VISUAL DISPLAY MANAGER.COCONUT COOKER [address] [facility] [place] [id number] 6 month follow up [facility] [place] Comment on above: 6 month follow up Start: 03-23-2024 End: 03-23-2024 Patient encounter procedure 03/23/2024 11:30 AM EST Office Visit [facility] [address] [place] [phone] Paula Walter DO [address] [place] [address] [facility] Start: 03-05-2024 End: 03-05-2024 Patient encounter procedure 03/05/2024 10:45 AM EST Office Visit [facility] [address] [place] [phone] Chris Antoine MD [address], [address] [place] [address] [facility] Start: 02-28-2024 End: 05-29-2024 Hemoglobin A1c in Blood HEMOGLOBIN A1C Lab Routine Type 2 diabetes mellitus with stage 4 chronic kidney disease, with long-term current use of insulin (HCC) Expected: 02/28/2024, Expires: 05/29/2024 [facility] Work Phone: Comment on above: Expected: 02/28/2024, Expires: Start: 02-28-2024 End: 02-28-2024 Patient encounter procedure 02/28/2024 10:30 AM EST [facility] [address] [phone] Tessa Brock, [facility] [address], [place] [phone] DM f/up [facility] Comment on above: DM f/up Start: 02-26-2024 End: 02-26-2024 Patient encounter procedure 02/26/2024 2:30 PM EST [facility] [address] [phone] [facility] [address] [place] [address] DM f/up [facility] Comment on above: DM f/up Start: 01-20-2024 End: 01-20-2024 Patient encounter procedure [facility] Start: 01-15-2024 End: 01-15-2024 Patient encounter procedure 01/15/2024 2:00 PM EDT [facility] [address] [phone] [facility] [address] [place] [address] DM f/up [facility] Comment on above: DM f/up Start: 01-05-2024 Annual PCP Team Chronic Disease Visit Annual PCP Team Chronic Disease Visit [facility] Start: 01-05-2024 BP Controlled (<130/80) BP Controlled (<130/80) [facility] Start: 01-05-2024 Hepatitis B Vaccine (1 of 3 - Risk 3-dose series) Hepatitis B Vaccine (1 of 3 - Risk 3-dose series) [facility] Comment on above: Postponed from 2004 (Declined at t his time) Start: 12-24-2023 Hemoglobin A1c measurement Diabetes: Hemoglobin A1C [facility] Start: 12-13-2023 Creatinine measurement [facility] Start: 12-13-2023 Potassium measurement Potassium Level [facility] Start: 12-13-2023 Serum Creatinine Serum Creatinine [facility] Start: 12-08-2023 Annual PCP Team Chronic Disease Visit Annual PCP Team Chronic Disease Visit [facility] Start: 11-26-2023 End: 11-26-2023 Patient encounter procedure [facility] Start: 11-17-2023 Covid-19 Vaccine () Covid-19 Vaccine () [facility] Start: 11-17-2023 Covid-19 Vaccine () Covid-19 Vaccine ( season) [facility] Start: 11-17-2023 Influenza [facility] Start: 10-30-2023 End: 10-30-2023 Patient encounter procedure 10/30/2023 2:30 PM EDT [facility] [address] [facility] [address] [place] [phone] [facility] [address] [place] [address] DM f/up [facility] Comment on above: DM f/up Start: 10-10-2023 Serum Creatinine Serum Creatinine [facility] Start: 10-05-2023 Echocardiography Echocardiogram [facility] Start: 09-29-2023 Complete blood count Hemoglobin/Hematocrit [facility] Start: 09-23-2023 End: 09-23-2023 Patient encounter procedure [facility] [place] Comment on above: Medicare Wellness w/4 month follow-up Medicare Wellness w/ 4 month follow-up - has been taking water pill more frequently? See care coordination notes Start: 09-16-2023 End: 09-16-2023 Patient encounter procedure 09/16/2023 11:20 AM EDT Office Visit [facility] [address] [place] [phone] Paula Walter DO [address] [place] [address] [facility] Start: 09-12-2023 End: 09-12-2023 Patient encounter procedure 09/12/2023 10:30 AM EDT Office Visit [facility] [address] [place] [phone] Chris Antoine MD [address] [place] [address] [facility] Start: 09-04-2023 End: 09-04-2023 Patient encounter procedure 09/04/2023 2:30 PM EDT [facility] [address] [phone] Tessa Brock, [facility] [address] [place] [address] DM f/up [facility] Comment on above: DM f/up Start: 08-30-2023 End: 11-29-2023 ALBUMIN/CREAT RATIO RND UR ALBUMIN/CREAT RATIO RND UR Lab Routine Type 2 diabetes mellitus with stage 4 chronic kidney disease, with long-term current use of insulin (HCC) Expected: 08/30/2023, Expires: 11/29/2023 [facility] Work Phone: Comment on above: Expected: 08/30/2023, Expires: Start: 08-30-2023 End: 11-29-2023 CBC panel - Blood by Automated count CBC Lab Routine CKD (chronic kidney disease) stage 4, GFR 15-29 ml/min (HCC) Expected: 08/30/2023, Expires: 11/29/2023 [facility] Work Phone: Comment on above: Expected: 08/30/2023, Expires: 4 Start: 08-30-2023 End: 11-29-2023 Comprehensive metabolic 2000 panel - Serum or Plasma COMP METABOLIC PANEL Lab Routine Hyperparathyroidism, secondary renal (HCC) Expected: 08/30/2023, Expires: 11/29/2023 [facility] Work Phone: Comment on above: Expected: 08/30/2023, Expires: Start: 08-30-2023 End: 11-29-2023 Hemoglobin A1c in Blood HGB A1C Lab Routine Type 2 diabetes mellitus with stage 4 chronic kidney disease, with long-term current use of insulin (HCC) Expected: 08/30/2023, Expires: 11/29/2023 [facility] Work Phone: Comment on above: Expected: 08/30/2023, Expires: Start: 08-30-2023 End: 11-29-2023 Lipid 1996 panel - Serum or Plasma LIPID PANEL BASIC Lab Routine Type 2 diabetes mellitus with stage 4 chronic kidney disease, with long-term current use of insulin (HCC) Expected: 08/30/2023, Expires: 11/29/2023 [facility] Work Phone: Comment on above: Expected: 08/30/2023, Expires: Start: 08-30-2023 End: 08-30-2023 Patient encounter procedure 08/30/2023 11:20 AM EDT Office Visit [facility] [place] [address] [place], [place] [phone] Neel Turpin MD [address] [place] [address] Medicare Wellness w/4 month follow-up [facility] [place] Comment on above: Medicare Wellness w/4 month follow-up Start: 08-16-2023 ANNUAL PCP TEAM CHRONIC DISEASE VISIT ANNUAL PCP TEAM CHRONIC DISEASE VISIT [facility] Start: 08-16-2023 BP CONTROLLED (<130/80) BP CONTROLLED (<130/80) [facility] Start: 07-31-2023 End: 07-31-2023 Patient encounter procedure 07/31/2023 2:00 PM EDT [facility] [address] [phone] Tessa Brock, [facility] [address] [place] [address] DM f/up [facility] Comment on above: DM f/up Start: 07-30-2023 Hemoglobin A1c measurement [facility] Start: 07-10-2023 SERUM CREATININE SERUM CREATININE [facility] Start: 07-04-2023 End: 07-04-2023 Patient encounter procedure [facility] Start: 05-24-2023 HEMOGLOBIN/HEMATOCRIT HEMOGLOBIN/HEMATOCRIT [facility] Start: 05-14-2023 End: 05-14-2023 Clinical Support [facility] Start: 04-27-2023 ANNUAL PCP TEAM CHRONIC DISEASE VISIT ANNUAL PCP TEAM CHRONIC DISEASE VISIT [facility] Start: 04-27-2023 BP CONTROLLED (<130/80) BP CONTROLLED (<130/80) [facility] Start: 04-27-2023 COVID-19 VACCINE (3 - Booster for Moderna series) COVID-19 VACCINE (3 - Booster for Moderna series) [facility] Comment on above: Postponed from 08/26/2020 (Declined at t his time) Start: 04-27-2023 COVID-19 VACCINE (3 - Moderna series) COVID-19 VACCINE (3 - Moderna series) [facility] Comment on above: Postponed from 08/26/2020 (Declined at t his time) Start: 04-15-2023 End: 04-15-2023 Patient encounter procedure 04/15/2023 11:00 AM EST Office Visit [facility] [address] [place] [phone] Paula Walter DO [address] [place] [address] [facility] Start: 04-06-2023 Hemoglobin A1c measurement [facility] Start: 04-06-2023 Hemoglobin A1c/Hemoglobin.total in Blood HbA1C [facility] Start: 03-30-2023 Hepatitis B surface antibody level LDL CHOLESTEROL [facility] Start: 03-18-2023 Advance Directive Discussion Advance Directive Discussion [facility] Start: 03-18-2023 Behavioral Health Screening Behavioral Health Screening [facility] Start: 03-18-2023 Depression Assessment Depression Assessment [facility] Start: 02-22-2023 ANNUAL PCP TEAM CHRONIC DISEASE VISIT ANNUAL PCP TEAM CHRONIC DISEASE VISIT [facility] Start: 01-03-2023 FUV, Provider: Claus Browne, Status: [place]ician[place], Time: 1:30 PM FUV, Provider: Claus Browne, Status: Feliciano, Time: 1:30 PM [facility] [address] DO Work Phone: Start: 01-03-2023 End: 01-03-2023 Patient encounter procedure 01/03/2023 1:30 PM EDT Office Visit [facility] [address] [place] [address] Claus Browne MD [address] [facility] [address], [address] [place], [place] [phone] [facility] Start: 12-28-2022 FUV, Provider: Chris Antoine, Status: Pen, Time: 11:45 AM FUV, Provider: Chris Antoine, Status: Pen, Time: 11:45 AM [place]-Hawgrhfvhz-Nisszi [address] Work Phone: Start: 12-18-2022 3 comp foot exam completed DIABETIC FOOT EXAM [facility] Start: 12-18-2022 ANNUAL PCP TEAM CHRONIC DISEASE VISIT ANNUAL PCP TEAM CHRONIC DISEASE VISIT [facility] Start: 12-18-2022 Diabetic foot examination Diabetic Foot Exam [facility] Start: 12-10-2022 FUV, Provider: Paula Walter, Status: Pen, Time: 11:00 AM FUV, Provider: Paula Walter, Status: Pen, Time: 11:00 AM [facility] Work Phone: Start: 11-30-2022 Glaucoma screening Diabetes: Retinopathy Screening [facility] Start: 11-16-2022 Covid-19 Vaccine ( season) Covid-19 Vaccine ( season) [facility] Start: 11-16-2022 Influenza vaccination [facility] Start: 11-15-2022 Hemoglobin A1c/Hemoglobin.total in Blood HBA1C [facility] Start: 11-06-2022 Patient encounter procedure [id number], Provider: SCIENTOLOGIST [facility],GRISELDA, Status: Pen, Time: 12:30 PM [facility] [address] DO Work Phone: Start: 10-11-2022 NURSEVST, Provider: MILLY CARDIO RN 1,[id number], Status: Pen, Time: 11:00 AM NURSEVST, Provider: MILLY CARDIO RN 1,[id number], Status: Pen, Time: 11:00 AM EM-Lcjcmtexjj-JGZ [address] DO Work Phone: Start: 10-03-2022 PACEMKR TR, Provider: SHAYNA EP [facility] 3,MG CARD, Status: Pen, Time: 12:30 PM PACEMKR TR, Provider: SHAYNA EP LAB 3,MG CARD, Status: Pen, Time: 12:30 PM MZ-Fpflulnnnj-DVT [place] [address] DO Work Phone: Start: 08-15-2022 End: 10-15-2022 Hemoglobin A1c in Blood HGB A1C Lab Routine Type 2 diabetes mellitus with stage 4 chronic kidney disease, with long-term current use of insulin (HCC) Expected: 08/15/2022, Expires: 10/15/2022 [facility] Work Phone: Comment on above: Expected: 08/15/2022, Expires: Start: 08-09-2022 ANNUAL PCP TEAM CHRONIC DISEASE VISIT ANNUAL PCP TEAM CHRONIC DISEASE VISIT [facility] Start: 08-06-2022 FUV, Provider: Paula Walter, Status: Pen, Time: 11:00 AM FUV, Provider: Paula Walter, Status: Pen, Time: 11:00 AM TY-Szefqrbfdc-Cehqpb d [address] Work Phone: Start: 06-27-2022 FUV, Provider: Chris Antoine, Status: Pen, Time: 11:15 AM FUV, Provider: Chris Antoine, Status: Pen, Time: 11:15 AM YF-Zkaakkuyhc-Paaxqo d [address] Work Phone: Start: 05-22-2022 FUV, Provider: Paula Walter, Status: Pen, Time: 11:20 AM FUV, Provider: Paula Walter, Status: Feliciano, Time: 11:20 AM [facility] 400 DO Work Phone: Start: 04-28-2022 Hemoglobin A1c measurement Diabetes: Hemoglobin A1C [facility] Start: 04-23-2022 FUV, Provider: Paula Walter, Status: Pen, Time: 11:00 AM FUV, Provider: Paula Walter, Status: Pen, Time: 11:00 AM MP-Pulmonary Medicine-[place] [address] DO Work Phone: Start: 04-16-2022 ABG, Provider: SCIENTOLOGIST RESP NON PFT ROOM,[id number], Status: Pen, Time: 2:00 PM ABG, Provider: SCIENTOLOGIST RESP NON PFT ROOM,[id number], Status: Pen, Time: 2:00 PM MP-Pulmonary Medicine-[place] [address] DO Work Phone: Start: 04-16-2022 PFT, Provider: SCIENTOLOGIST PFT ROOM,[id number], Status: Pen, Time: 1:00 PM PFT, Provider: SCIENTOLOGIST PFT ROOM,[id number], Status: Pen, Time: 1:00 PM MP-Pulmonary Medicine-[place] [address] DO Work Phone: Start: 04-09-2022 NPV, Provider: Paula Walter, Status: Pen, Time: 11:00 AM NPV, Provider: Paula Walter, Status: Pen, Time: 11:00 AM DI-Ajmfbddqdq-Ekveqi d [address] Work Phone: Start: 04-05-2022 End: 06-05-2022 ALBUMIN/CREAT RATIO RND UR ALBUMIN/CREAT RATIO RND UR Lab Routine Type 2 diabetes mellitus with stage 4 chronic kidney disease, with long-term current use of insulin (HCC) Expected: 04/05/2022, Expires: 06/05/2022 [facility] Work Phone: Comment on above: Expected: 04/05/2022, Expires: Start: 04-05-2022 ANNUAL PCP TEAM CHRONIC DISEASE VISIT ANNUAL PCP TEAM CHRONIC DISEASE VISIT [facility] Start: 04-05-2022 BP CONTROLLED (<130/80) BP CONTROLLED (<130/80) [facility] Start: 04-05-2022 End: 06-05-2022 CBC panel - Blood by Automated count CBC Lab Routine Anemia due to chronic kidney disease, unspecified CKD stage Expected: 04/05/2022, Expires: 06/05/2022 [facility] Work Phone: Comment on above: Expected: 04/05/2022, Expires: 3 Start: 04-05-2022 End: 06-05-2022 Comprehensive metabolic 2000 panel - Serum or Plasma COMP METABOLIC PANEL Lab Routine Mixed hyperlipidemia Expected: 04/05/2022, Expires: 06/05/2022 [facility] Work Phone: Comment on above: Expected: 04/05/2022, Expires: 3 Start: 04-05-2022 End: 06-05-2022 Hemoglobin A1c in Blood HGB A1C Lab Routine Type 2 diabetes mellitus with stage 4 chronic kidney disease, with long-term current use of insulin (HCC) Expected: 04/05/2022, Expires: 06/05/2022 [facility] Work Phone: Comment on above: Expected: 04/05/2022, Expires: 3 Start: 04-05-2022 End: 06-05-2022 Lipid 1996 panel - Serum or Plasma LIPID PANEL BASIC Lab Routine Mixed hyperlipidemia Expected: 04/05/2022, Expires: 06/05/2022 [facility] Work Phone: Comment on above: Expected: 04/05/2022, Expires: 3 Start: 03-22-2022 HEMOGLOBIN/HEMATOCRIT HEMOGLOBIN/HEMATOCRIT [facility] Start: 03-18-2022 ADVANCE DIRECTIVE DISCUSSION ADVANCE DIRECTIVE DISCUSSION [facility] Start: 03-18-2022 DEPRESSION ASSESSMENT DEPRESSION ASSESSMENT [facility] Start: 02-09-2022 Hemoglobin A1c/Hemoglobin.total in Blood HBA1C [facility] Start: 01-29-2022 End: 01-30-2023 [facility] Comment on above: After each use (each lumen) using push-p ause method. Upon final de-access ing of implanted port. Start: 01-26-2022 End: 01-27-2023 [facility] Comment on above: IF patient HAS a secure IV access & is U nconscious, Conscious, NPO or Unable to Eat or Drink. Repeat until BG reaches 100 mg/dL or greater. Push 2-3 mL/minute. Discontinue Once BG reaches 100 mg/dL or greater. IF patient DOES NOT have secure IV access & is Unconscious, Conscious, NPO or Unable to Eat or Drink. Repeat until BG reaches 100 mg/dL or greater. Discontinue Once BG reaches 100 mg/dL or greater. Start: 12-28-2021 SERUM CREATININE SERUM CREATININE [facility] Start: 12-27-2021 Venous catheter care management [facility] Start: 12-27-2021 Flushing of Port-a-cath [facility] Start: 12-27-2021 Patient discharge [facility] Start: 12-26-2021 [facility] Start: 12-25-2021 Assessment of risk of venous thromboembolism [facility] Start: 12-25-2021 Care regimes management [facility] Start: 12-25-2021 Consultation for pain [facility] Start: 12-25-2021 Insertion of catheter into peripheral vein [facility] Start: 12-25-2021 Providing care according to standard [facility] Start: 12-25-2021 Provision of activity privileges [facility] Start: 12-25-2021 Referral to occupational therapist [facility] Start: 12-25-2021 Referral to service [facility] Start: 12-25-2021 [facility] Start: 12-25-2021 Admission procedure [facility] Start: 12-25-2021 Following clinical pathway protocol [facility] Start: 12-25-2021 Patient referral to dietitian [facility] Start: 12-22-2021 Patient discharge [facility] Start: 12-22-2021 Referral to service [facility] Start: 12-22-2021 Consultation [facility] Start: 12-22-2021 Care regimes management [facility] Start: 12-22-2021 Notification of physician [facility] Start: 12-22-2021 [facility] Start: 12-22-2021 Patient referral to dietitian [facility] Start: 12-21-2021 Referral to occupational therapist [facility] Start: 12-21-2021 Referral to service [facility] Start: 12-21-2021 Assessment of risk of venous thromboembolism [facility] Start: 12-21-2021 Notification of physician [facility] Start: 12-21-2021 Provision of activity privileges [facility] Start: 12-21-2021 Vital signs measurements [facility] Start: 12-21-2021 End: 12-21-2021 Following clinical pathway protocol [facility] Start: 12-21-2021 Venous catheter care management [facility] Start: 12-21-2021 End: 12-21-2021 Admission procedure [facility] Start: 12-21-2021 Emergency dept visit high severity&threat funcj [facility] Start: 12-21-2021 Ther proph/dx njx ea seql iv push sbst/drug fac TX/PRO/DX INJ SAME DRUG CUTTING TABLE OPERATOR [facility] Start: 12-21-2021 Ther proph/dx njx iv push single/1st sbst/drug THER/PROPH/DIAG INJ IV PUSH [facility] Start: 12-21-2021 Therapeutic injection iv push each new drug TX/PRO/DX INJ NEW DRUG ADDON [facility] Start: 12-21-2021 Therapeutic prophylactic/dx injection subq/im THER/PROPH/DIAG INJ SC/IM [facility] Start: 12-19-2021 End: 02-18-2022 Basic metabolic 2000 panel - Serum or Plasma BASIC METABOLIC PNL Lab Routine Acute leg pain, right Expected: 12/19/2021, Expires: 02/18/2022 [facility] Work Phone: Comment on above: Expected: 12/19/2021, Expires: 2 Start: 12-19-2021 End: 02-18-2022 CBC panel - Blood by Automated count CBC Lab Routine Acute leg pain, right Expected: 12/19/2021, Expires: 02/18/2022 [facility] Work Phone: Comment on above: Expected: 12/19/2021, Expires: 2 Start: 12-19-2021 End: 02-18-2022 Fibrin D-dimer FEU [Mass/volume] in Platelet poor plasma D-DIMER Lab Routine Acute leg pain, right Expected: 12/19/2021, Expires: 02/18/2022 [facility] Work Phone: Comment on above: Expected: 12/19/2021, Expires: 2 Start: 11-30-2021 Glaucoma screening Diabetes: Retinopathy Screening [facility] Start: 11-17-2021 3 comp foot exam completed DIABETIC FOOT EXAM [facility] Start: 11-16-2021 Influenza vaccination INFLUENZA (#1) [facility] Start: 11-09-2021 End: 01-09-2022 Hemoglobin A1c/Hemoglobin.total in Blood HGB A1C Lab Routine Type 2 diabetes mellitus with stage 4 chronic kidney disease, with long-term current use of insulin (HCC) Expected: 11/09/2021, Expires: 01/09/2022 [facility] Work Phone: Comment on above: Expected: 11/09/2021, Expires: 2 Start: 11-09-2021 End: 01-09-2022 LIPID PANEL BASIC LIPID PANEL BASIC Lab Routine Mixed hyperlipidemia Expected: 11/09/2021, Expires: 01/09/2022 [facility] Work Phone: Comment on above: Expected: 11/09/2021, Expires: 2 Start: 08-10-2021 Adult depression screening assessment DEPRESSION SCREENING [facility] Start: 07-13-2021 Hepatitis B surface antibody level LDL CHOLESTEROL [facility] Start: 06-20-2021 Hemoglobin A1c/Hemoglobin.total in Blood HBA1C [facility] Start: 03-18-2021 ADVANCE DIRECTIVE DISCUSSION ADVANCE DIRECTIVE DISCUSSION [facility] Start: 12-01-2020 COVID-19 VACCINE (3 - Booster for Moderna series) COVID-19 VACCINE (3 - Booster for Moderna series) [facility] Start: 10-19-2020 Glaucoma screening Dilated Retinal Exam [facility] Start: 10-19-2020 Hepatitis C antibody, confirmatory test DILATED RETINAL EXAM [facility] Start: 09-21-2020 BP CONTROLLED (<130/80) BP CONTROLLED (<130/80) [facility] Start: 08-26-2020 COVID-19 VACCINE (3 - Booster for Moderna series) COVID-19 VACCINE (3 - Booster for Moderna series) [facility] Start: 08-26-2020 COVID-19 Vaccine (3 - Moderna series) COVID-19 Vaccine (3 - Moderna series) [facility] Start: 02-05-2019 RSV High Risk: (Elderly (60+) or Population) (1 - 1-dose 75+ series) RSV High Risk: (Elderly (60+) or Population) (1 - 1-dose 75+ series) [facility] Start: 02-05-2019 RSV Vaccine (1 - 1-dose 75+ series) RSV Vaccine (1 - 1-dose 75+ series) [facility] Start: 01-28-2018 DTaP/Tdap/Td Vaccines (1 - Tdap) DTaP/Tdap/Td Vaccines (1 - Tdap) [facility] Start: 12-11-2016 End: 12-11-2016 Appointment Appointment [facility] Work Phone: Start: 10-24-2016 End: 10-24-2016 Physical Therapy General Physical Therapy [facility], [address] [place] [address], [phone] [facility] Work Phone: Start: 10-24-2016 End: 10-24-2016 Physical Therapy General Physical Therapy [facility], [address] [place] [address], [phone] [facility] Work Phone: Start: 10-23-2016 End: 10-23-2016 Radex spine lumbscrl compl w/bending views min 6 X-Ray, Spine, Lumbar, complete with bending views [facility] Work Phone: Start: 10-23-2016 End: 10-23-2016 X-ray exam l-s spine bending X-Ray, Spine, Lumbar, complete with bending views [facility] Work Phone: Start: 2004 Hepatitis B Vaccine (1 of 3 - Risk 3-dose series) Hepatitis B Vaccine (1 of 3 - Risk 3-dose series) [facility] Start: 2004 RSV patients and/or patients aged 60+ years (1 - 1-dose 60+ series) RSV patients and/or patients aged 60+ years (1 - 1-dose 60+ series) [facility] Start: 2004 RSV Vaccine (1 - 1-dose 60+ series) RSV Vaccine (1 - 1-dose 60+ series) [facility] Start: 02-05-1966 DTaP/Tdap/Td Vaccines (1 - Tdap) DTaP/Tdap/Td Vaccines (1 - Tdap) [facility] Start: 02-05-1962 Hepatitis C screening Hepatitis C Screening [facility] Start: 02-05-1954 Diabetic foot examination Diabetes: Foot Exam [facility] Start: 1945 Lipid panel Lipid Panel [facility] Start: 1945 Medicare Annual Wellness Visit Medicare Annual Wellness Visit (AWV) [facility] Start: 1945 Screening for osteoporosis Bone Density Scan [facility] Cardiac Device Check - In Clinic Cardiac Device Check - In Clinic Implantable Cardiac Device Routine 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 Paroxysmal ventricular tachycardia (CMS/HCC) 05/14/2023 12:42 PM EST [facility] Service Area Work Phone: Cardiac Device Check - In Clinic Cardiac Device Check - In Clinic Implantable Cardiac Device Routine 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 Paroxysmal ventricular tachycardia (Multi) 11/26/2023 11:24 AM EDT [facility] Service Area Work Phone: End: 07-17-2023 Cardiac Device Check - Remote [facility] Area Work Phone: Comment on above: Once for 1 Occurrences starting 07/17/19 until 07/17/2023 End: 01-15-2024 Cardiac Device Check - Remote [facility] Area Work Phone: Comment on above: Once for 1 Occurrences starting 01/15/20 until 01/15/2024 End: 04-15-2024 Cardiac Device Check - Remote [facility] Area Work Phone: Comment on above: Once for 1 Occurrences starting 04/15/19 until 04/15/2024 End: 07-14-2024 Cardiac Device Check - Remote [facility] Work Phone: Comment on above: Once for 1 Occurrences starting 07/15/19 until 07/14/2024 End: 04-17-2023 Cardiac device check - Remote alert [facility] Work Phone: Comment on above: Once for 1 Occurrences starting 04/17/19 until 04/17/2023 End: 09-10-2023 Cobalamin (Vitamin B12) [Mass/volume] in Serum or Plasma [facility] Work Phone: Comment on above: Once (Lab) for 1 Occurrences starting until 09/10/2023 End: 09-09-2023 Determination of physical activity tolerance Cardiac rehab evaluation Card Rehab Routine Once for 1 Occurrences starting 09/09/2023 until 09/09/2023 [facility] Work Phone: Comment on above: Once for 1 Occurrences starting 09/09/19 until 09/09/2023 ECG 12 lead [facility] Work Phone: Electrocardiogram, 12-lead PRN ACS symptoms Electrocardiogram, 12-lead PRN ACS symptoms ECG Routine As needed until discontinued starting 09/09/2023 [facility] Work Phone: Comment on above: As needed until discontinued starting Electrocardiogram, 12-lead PRN ACS symptoms Electrocardiogram, 12-lead PRN ACS symptoms ECG Routine As needed until discontinued starting 09/09/2023 [facility] Work Phone: Comment on above: As needed until discontinued starting End: 10-03-2022 Electrophysiology Electrophysiology Electrophysiology Once for 1 Occurrences starting 10/03/2022 until 10/03/2022 [facility] Work Phone: Comment on above: Once for 1 Occurrences starting 10/04/19 until 10/03/2022 End: 09-12-2023 Glucose [Mass/volume] in Serum or Plasma POCT GLUCOSE Point of Care Testing Routine 4 times daily before meals and at bedtime for 3 Days starting 09/09/2023 until 09/12/2023 [facility] Work Phone: Comment on above: 4 times daily before meals and at bedtim e for 3 Days starting 09/09/2023 until 09/12/2023 Glucose [Mass/volume ] in Serum or Plasma POCT Glucose Point of Care Testing - Docked Device Routine As needed (Lab) until discontinued starting 09/09/2023 [facility] Work Phone: Comment on above: As needed (Lab) until discontinued start ing 09/09/2023 Patient referral [facility] Work Phone: End: 09-09-2023 Pulse oximetry, spot Pulse oximetry, spot Respiratory Care Routine Once for 1 Occurrences starting 09/09/2023 until 09/09/2023 [facility] Work Phone: Comment on above: Once for 1 Occurrences starting 09/09/19 until 09/09/2023 End: 09-09-2023 Respiratory care eval and treat Respiratory care eval and treat Respiratory Care Routine Once for 1 Occurrences starting 09/09/2023 until 09/09/2023 [facility] Service Area Work Phone: Comment on above: Once for 1 Occurrences starting 09/09/19 until 09/09/2023 End: 01-17-2023 XR TIBIA FIBULA 2V AP/LAT RIGHT XR TIBIA FIBULA 2V AP/LAT RIGHT Radiology Routine Acute leg pain, right 1 Occurrences starting 12/18/2021 until 01/17/2023 [facility] Work Phone: Comment on above: 1 Occurrences starting 12/18/2021 until 01/17/2023 XR TIBIA FIBULA 2V A P/LAT RIGHT XR TIBIA FIBULA 2V AP/LAT RIGHT Radiology Routine Acute leg pain, right 12/19/2021 2:30 PM EDT [facility] Phone: [facility] Immunizations Immunization Date Immunization Notes Care Provider Solange tipton 03-25-2024 COVID-19 vaccine, ag e 12+ yr (PFIZER-BIONTECH COMIRNATY) 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[employer] 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 Phone: [facility] 03-25-2024 influenza, high dose seasonal, preservative-free 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.[employer] Work Phone: [facility] 03-25-2024 influenza virus vaccine, unspecified formulation Tessa Brock [facility] Work Phone: [facility] 01-04-2023 influenza (HD-IIV4) vaccine, age 65+ yr, high dose, quadrivalent, PF (FLUZONE HIGH-DOSE) Kacy Older VISUAL DISPLAY MANAGER.[employer] Work Phone: [facility] 01-04-2023 influenza virus vaccine, unspecified formulation Kacy Older VISUAL DISPLAY MANAGER.[employer] Work Phone: [facility] 12-22-2021 influenza, injectabl e, quadrivalent, preservative free [facility] 12-22-2021 influenza, seasonal, injectable Dr. Neel Turpin Work Phone: [facility] Work Phone: 12-22-2021 influenza virus vaccine, unspecified formulation Neel Turpin MD Work Phone: [facility] 11-17-2020 influenza, high-dose , quadrivalent vaccine (FLUZONE HIGH DOSE QUADRIVALENT) Neel Turpin MD Work Phone: [facility] Work Phone: 07-01-2020 COVID-19 vaccine, fu ll dose (MODERNA) Neel Turpin MD Work Phone: [facility] Work Phone: 06-01-2020 COVID-19 vaccine, fu ll dose (MODERNA) Neel Turpin MD Work Phone: [facility] Work Phone: 12-30-2019 zoster vaccine recombinant Neel Turpin MD Work Phone: [facility] Work Phone: 12-02-2019 influenza, high dose seasonal, preservative-free Neel Turpin MD Work Phone: [facility] Work Phone: 12-02-2019 influenza, injectabl e, quadrivalent, preservative free Chris Antoine MD Work Phone: [facility] Work Phone: 10-07-2019 zoster vaccine recombinant Neel Turpin MD Work Phone: [facility] Work Phone: 12-31-2018 Influenza, injectabl e, [facility]in [facility] Canine Kidney, preservative free, quadrivalent Neel Turpin MD Work Phone: [facility] Work Phone: 12-31-2018 influenza, injectabl e, quadrivalent, contains preservative Neel Turpin MD Work Phone: [facility] Work Phone: 01-27-2018 tetanus immune globulin [facility] Work Phone: 01-01-2018 influenza, high dose seasonal, preservative-free Neel Turpin MD Work Phone: [facility] Work Phone: 01-01-2018 influenza, injectabl e, quadrivalent, preservative free [facility] 01-01-2018 influenza, seasonal, injectable [facility] 01-25-2016 influenza, high dose seasonal, preservative-free Neel Turpin MD Work Phone: [facility] 04-06-2015 pneumococcal conjuga te vaccine, 13 valent Neel Turpin MD Work Phone: [facility] 03-18-2015 pneumococcal conjuga te vaccine, 13 [facility] 01-12-2015 influenza, high dose seasonal, preservative-free Neel Turpin MD Work Phone: [facility] 12-31-2013 influenza, seasonal, injectable Neel Turpin MD Work Phone: [facility] 12-02-2013 pneumococcal polysaccharide vaccine, 23 valent Neel Turpin MD Work Phone: [facility] 11-16-2013 pneumococcal polysaccharide vaccine, 23 [facility] 12-29-2012 influenza virus vaccine, unspecified formulation Neel Turpin MD Work Phone: [facility] 12-24-2012 influenza virus vaccine, whole virus Neel Turpin MD Work Phone: [facility] Work Phone: 01-16-2012 influenza virus vaccine, unspecified formulation Neel Turpin MD Work Phone: [facility] Work Phone: 12-09-2008 influenza virus vaccine, unspecified formulation Neel Turpin MD Work Phone: [facility] 01-09-2008 influenza virus vaccine, whole virus Neel Turpin MD Work Phone: [facility] Work Phone: 02-15-2001 pneumococcal polysaccharide vaccine, 23 valent Neel Turpin MD Work Phone: [facility] Work Phone: Payers Date Payer Category Payer Self-pay [id number] 2021 Medicare supplementa l policy (as second payer) [employer] [id number] 2021 Private Health Insurance [employer] [id number] 2021-Present [phone] [address] [place] [address] Indemnity [id number] 2021 Private Health Insurance [id number] 2018 Private Health Insurance 2018 Medicare [id number] 2010 Private Health Insurance [id number] 2006 Medicare 2006 Medicare MEDICARE MEDICAR E A AND B [id number] 2006-Present [phone] [place] [address] Medicare [id number] 2006 Medicare [id number] 1944 Unknown [id number] .0.1.111909.3.579 .2.717 1944 Unknown [id number] 2.840.1.736707.3.579 .2.1068 1944 Unknown [id number] 2.840.1.070107.3.579 .2.1068 1944 Unknown [id number] 2.840.1.354311.3.579 .2.106 1944 Unknown [id number] 2.840.1.678855.3.579 .2.1068 1944 Unknown [id number] 2.16.840.1.885624.3.579 .2.1068 1944 Unknown [id number] 2.16.840.1.081164.3.579 .2.1068 1944 Unknown [id number] 2.16.840.1.194768.3.579 .2.1068 1944 Unknown [id number] 2.16.840.1.708434.3.579 .2.1068 1944 Unknown [id number] 2.16.840.1.476867.3.579 .2.1068 1944 Unknown [id number] 2.16.840.1.360102.3.579 .2.1068 1944 Unknown [id number] 2.840.1.476365.3.579 .2.1068 1944 Unknown [id number] 2.16840.1.431513.3.579 .2.6 1944 Unknown [id number] 2.16840.1.550085.3.579 .2.6 1944 Unknown [id number] 2.16840.1.063349.3.579 .2.1242 1944 Unknown [id number] 2.840.1.966364.3.579 .2.1242 1944 Unknown [id number] 2.16.840.1.511924.3.579 .2.1242 1944 Unknown [id number] 2.16.840.1.234624.3.579 .2.1246 1944 Unknown [id number] 2.16.840.1.211627.3.579 .2.7 1944 Unknown [id number] 2.16.840.1.324525.3.579 .2.1246 1944 Unknown [id number] 2.16.840.1.483109.3.579 .2.1247 1944 Unknown [id number] 2..840.1.075045.3.579 .2.1244 1944 Unknown [id number] 2..840.1.924753.3.579 .2.1244 1944 Unknown [id number] 2..840.1.885003.3.579 .2.124 1944 Unknown [id number] 2..840.1.111492.3.579 .2.124 1944 Unknown [id number] 2.840.1.303284.3.579 .2.1244 Unknown [id number] Unknown Unknown [id number] 2.840.1.949267.3.579 .2.531 Unknown [id number] 2.840.1.728216.3.579 .2.531 Unknown [id number] 2.840.1.132354.3.579 .2.462 Unknown [id number] 2.840.1.370536.3.579 .2.462 Unknown [id number] 2.840.1.649654.3.579 .2.462 Unknown [id number] 2..840.1.244252.3.579 .2.462 Unknown [id number] 2..840.1.152999.3.579 .2.462 Unknown [id number] 2..840.1.498622.3.579 .2.462 Unknown [id number] 2.16.840.1.804640.3.579 .2.462 Unknown [id number] 2.16.840.1.549938.3.579 .2.462 Unknown [id number] 2.840.1.483449.3.579 .2.462 Unknown [id number] 2.16.840.1.208616.3.579 .2.462 Unknown [id number] 2.16.840.1.063352.3.579 .2.462 Unknown [id number] 2.16.840.1.032227.3.579 .2.462 Unknown [id number] 2.16.840.1.772126.3.579 .2.462 Unknown [id number] 2.16.840.1.993388.3.579 .2.462 Unknown [id number] 2.16.840.1.860775.3.579 .2.462 Unknown [id number] 2.16.840.1.063026.3.579 .2.462 Unknown [id number] 2.16.840.1.361365.3.579 .2.462 Unknown [id number] 2.16.840.1.949888.3.579 .2.462 Unknown [id number] 2.16.840.1.343127.3.579 .2.462 Unknown [id number] 2.16.840.1.476351.3.579 .2.462 Unknown [id number] 2.16.840.1.372470.3.579 .2.462 Unknown [id number] 2.16.840.1.724763.3.579 .2.462 Unknown [id number] 2.16.840.1.971213.3.579 .2.462 Unknown [id number] 2.16.840.1.698285.3.579 .2.462 Unknown [id number] 2.16.840.1.461741.3.579 .2.462 Unknown [id number] 2.16.840.1.784607.3.579 .2.462 Unknown [id number] 2.16.840.1.144737.3.579 .2.462 Unknown [id number] 2.16.840.1.017161.3.579 .2.462 Unknown [id number] 2.16.840.1.740845.3.579 .2.462 Unknown [id number] 2.16.840.1.484956.3.579 .2.462 Unknown [id number] 2.16.840.1.427119.3.579 .2.462 Unknown [id number] 2.16.840.1.289545.3.579 .2.462 Social History Date Type Detail Facility Tobacco smoking status NHIS Unknown if ever smoked [facility] Start: 1945 Sex Assigned At Not on file [facility] Start: 02-26-2018 End: 12-25-2021 Tobacco smoking status NHIS Unknown if ever smoked [facility] Start: 07-12-2020 None [facility] Start: 07-12-2020 Alone [facility] Start: 07-12-2020 Non-smoker [facility] Start: 1945 Sex Assigned At Female F [facility] Start: 12-04-2021 End: 12-28-2022 Tobacco smoking status NHIS Never smoked tobacco [facility] Work Phone: Start: 04-05-2021 End: 09-23-2024 Alcohol intake Current non-drinker of alcohol (finding) [facility] Start: 07-30-2021 End: 03-24-2024 Exposure to SARS-CoV-2 (event) Not sure [facility] Work Phone: Start: 12-04-2021 End: 12-28-2022 Tobacco use and exposure Smokeless tobacco non-user [facility] Start: 12-10-2021 End: 12-20-2021 Exposure to SARS-CoV-2 (event) Unable to assess [facility] Work Phone: Start: 08-15-2022 End: 12-07-2022 No alcohol use No alcohol use [facility] Work Phone: Start: 08-15-2022 End: 12-07-2022 Tobacco use panel [facility] Work Phone: Adult Depression Screening Assessment 4 [facility] Work Phone: History of tobacco use Passive smoker [facility] Work Phone: Start: 12-28-2022 End: 03-24-2024 Alcohol intake Lifetime non-drinker (finding) [facility] Work Phone: (I/We) worried whether (my/our) food would run out before (I/we) got money to buy more. Never true [facility] Work Phone: How often to you hav e a drink containing alcohol? Never [facility] In the past 12 months, was there a time when you were not able to pay the mortgage or rent on time? No [facility] Work Phone: NEGATED: Highlighted row [facility] Medical Equipment Procedure Code Equipment Code Equipment Origin al Text Equipment Identifier Dates ORIF, ankle 2.7MM LOCKING SCREW FDA Start: 01-24-2018 ORIF, ankle 2.7MM LOCKING SCREW FDA Start: 01-24-2018 ORIF, ankle 3.5MM LOCKING SCREW FDA Start: 01-24-2018 ORIF, ankle 3.5MM NON LOCK CORTICAL SCREW FDA Start: 01-24-2018 ORIF, ankle 3.5MM NON LOCK CORTICAL SCREWS FDA Start: 01-24-2018 ORIF, ankle LOCKING LATERAL HOOK PLATE FDA Start: 01-24-2018 ORIF, ankle PASTE,BONE DBX [id number] FDA Start : 01-24-2018 ORIF, ankle 4.0MM LO PRO CANNULATED SCREW FDA Start: 02-04-2018 ORIF, ankle 7.0MM STAINLESS STEEL WASHER FDA Start: 02-04-2018 ORIF, ankle HEADLESS COMP SCREW FDA Start: 02-04-2018 ORIF, ankle STEEL,SURGICAL DS20 FDA Start: 02-04-2018 ORIF, ankle 2.7MM LOCKING SCREW FDA Start: 01-24-2018 ORIF, ankle 2.7MM LOCKING SCREW FDA Start: 01-24-2018 ORIF, ankle 3.5MM LOCKING SCREW FDA Start: 01-24-2018 ORIF, ankle 3.5MM NON LOCK CORTICAL SCREW FDA Start: 01-24-2018 ORIF, ankle 3.5MM NON LOCK CORTICAL SCREWS FDA Start: 01-24-2018 ORIF, ankle LOCKING LATERAL HOOK PLATE FDA Start: 01-24-2018 ORIF, ankle PASTE,BONE DBX 5CC FDA Start : 01-24-2018 ORIF, ankle 4.0MM LO PRO CANNULATED SCREW FDA Start: 02-04-2018 ORIF, ankle 7.0MM STAINLESS STEEL WASHER FDA Start: 02-04-2018 ORIF, ankle HEADLESS COMP SCREW FDA Start: 02-04-2018 ORIF, ankle STEEL,SURGICAL DS20 FDA Start: 02-04-2018 ORIF, ankle 2.7MM LOCKING SCREW FDA Start: 01-24-2018 ORIF, ankle 2.7MM LOCKING SCREW FDA Start: 01-24-2018 ORIF, ankle 3.5MM LOCKING SCREW FDA Start: 01-24-2018 ORIF, ankle 3.5MM NON LOCK CORTICAL SCREW FDA Start: 01-24-2018 ORIF, ankle 3.5MM NON LOCK CORTICAL SCREWS FDA Start: 01-24-2018 ORIF, ankle LOCKING LATERAL HOOK PLATE FDA Start: 01-24-2018 ORIF, ankle PASTE,BONE DBX 5CC FDA Start : 01-24-2018 ORIF, ankle 4.0MM LO PRO CANNULATED SCREW FDA Start: 02-04-2018 ORIF, ankle 7.0MM STAINLESS STEEL WASHER FDA Start: 02-04-2018 ORIF, ankle HEADLESS COMP SCREW FDA Start: 02-04-2018 ORIF, ankle STEEL,SURGICAL DS20 FDA Start: 02-04-2018 ORIF, ankle 2.7MM LOCKING SCREW FDA Start: 01-24-2018 ORIF, ankle 2.7MM LOCKING SCREW FDA Start: 01-24-2018 ORIF, ankle 3.5MM LOCKING SCREW FDA Start: 01-24-2018 ORIF, ankle 3.5MM NON LOCK CORTICAL SCREW FDA Start: 01-24-2018 ORIF, ankle 3.5MM NON LOCK CORTICAL SCREWS FDA Start: 01-24-2018 ORIF, ankle LOCKING LATERAL HOOK PLATE FDA Start: 01-24-2018 ORIF, ankle PASTE,BONE DBX 5CC FDA Start : 01-24-2018 ORIF, ankle 4.0MM LO PRO CANNULATED SCREW FDA Start: 02-04-2018 ORIF, ankle 7.0MM STAINLESS STEEL WASHER FDA Start: 02-04-2018 ORIF, ankle HEADLESS COMP SCREW FDA Start: 02-04-2018 ORIF, ankle STEEL,SURGICAL DS20 FDA Start: 02-04-2018 ORIF, ankle 2.7MM LOCKING SCREW FDA Start: 01-24-2018 ORIF, ankle 2.7MM LOCKING SCREW FDA Start: 01-24-2018 ORIF, ankle 3.5MM LOCKING SCREW FDA Start: 01-24-2018 ORIF, ankle 3.5MM NON LOCK CORTICAL SCREW FDA Start: 01-24-2018 ORIF, ankle 3.5MM NON LOCK CORTICAL SCREWS FDA Start: 01-24-2018 ORIF, ankle LOCKING LATERAL HOOK PLATE FDA Start: 01-24-2018 ORIF, ankle PASTE,BONE DBX 5CC FDA Start : 01-24-2018 ORIF, ankle 4.0MM LO PRO CANNULATED SCREW FDA Start: 02-04-2018 ORIF, ankle 7.0MM STAINLESS STEEL WASHER FDA Start: 02-04-2018 ORIF, ankle HEADLESS COMP SCREW FDA Start: 02-04-2018 ORIF, ankle STEEL,SURGICAL DS20 FDA Start: 02-04-2018 ORIF, ankle 2.7MM LOCKING SCREW FDA Start: 01-24-2018 ORIF, ankle 2.7MM LOCKING SCREW FDA Start: 01-24-2018 ORIF, ankle 3.5MM LOCKING SCREW FDA Start: 01-24-2018 ORIF, ankle 3.5MM NON LOCK CORTICAL SCREW FDA Start: 01-24-2018 ORIF, ankle 3.5MM NON LOCK CORTICAL SCREWS FDA Start: 01-24-2018 ORIF, ankle LOCKING LATERAL HOOK PLATE FDA Start: 01-24-2018 ORIF, ankle PASTE,BONE DBX 5CC FDA Start : 01-24-2018 ORIF, ankle 4.0MM LO PRO CANNULATED SCREW FDA Start: 02-04-2018 ORIF, ankle 7.0MM STAINLESS STEEL WASHER FDA Start: 02-04-2018 ORIF, ankle HEADLESS COMP SCREW FDA Start: 02-04-2018 ORIF, ankle STEEL,SURGICAL DS20 FDA Start: 02-04-2018 ORIF, ankle 2.7MM LOCKING SCREW FDA Start: 01-24-2018 ORIF, ankle 2.7MM LOCKING SCREW FDA Start: 01-24-2018 ORIF, ankle 3.5MM LOCKING SCREW FDA Start: 01-24-2018 ORIF, ankle 3.5MM NON LOCK CORTICAL SCREW FDA Start: 01-24-2018 ORIF, ankle 3.5MM NON LOCK CORTICAL SCREWS FDA Start: 01-24-2018 ORIF, ankle LOCKING LATERAL HOOK PLATE FDA Start: 01-24-2018 ORIF, ankle PASTE,BONE DBX 5CC FDA Start : 01-24-2018 ORIF, ankle 4.0MM LO PRO CANNULATED SCREW FDA Start: 02-04-2018 ORIF, ankle 7.0MM STAINLESS STEEL WASHER FDA Start: 02-04-2018 ORIF, ankle HEADLESS COMP SCREW FDA Start: 02-04-2018 ORIF, ankle STEEL,SURGICAL DS20 FDA Start: 02-04-2018 ORIF, ankle 2.7MM LOCKING SCREW FDA Start: 01-24-2018 ORIF, ankle 2.7MM LOCKING SCREW FDA Start: 01-24-2018 ORIF, ankle 3.5MM LOCKING SCREW FDA Start: 01-24-2018 ORIF, ankle 3.5MM NON LOCK CORTICAL SCREW FDA Start: 01-24-2018 ORIF, ankle 3.5MM NON LOCK CORTICAL SCREWS FDA Start: 01-24-2018 ORIF, ankle LOCKING LATERAL HOOK PLATE FDA Start: 01-24-2018 ORIF, ankle PASTE,BONE DBX 5CC FDA Start : 01-24-2018 ORIF, ankle 4.0MM LO PRO CANNULATED SCREW FDA Start: 02-04-2018 ORIF, ankle 7.0MM STAINLESS STEEL WASHER FDA Start: 02-04-2018 ORIF, ankle HEADLESS COMP SCREW FDA Start: 02-04-2018 ORIF, ankle STEEL,SURGICAL DS20 FDA Start: 02-04-2018 ORIF, ankle 2.7MM LOCKING SCREW FDA Start: 01-24-2018 ORIF, ankle 2.7MM LOCKING SCREW FDA Start: 01-24-2018 ORIF, ankle 3.5MM LOCKING SCREW FDA Start: 01-24-2018 ORIF, ankle 3.5MM NON LOCK CORTICAL SCREW FDA Start: 01-24-2018 ORIF, ankle 3.5MM NON LOCK CORTICAL SCREWS FDA Start: 01-24-2018 ORIF, ankle LOCKING LATERAL HOOK PLATE FDA Start: 01-24-2018 ORIF, ankle PASTE,BONE DBX 5CC FDA Start : 01-24-2018 ORIF, ankle 4.0MM LO PRO CANNULATED SCREW FDA Start: 02-04-2018 ORIF, ankle 7.0MM STAINLESS STEEL WASHER FDA Start: 02-04-2018 ORIF, ankle HEADLESS COMP SCREW FDA Start: 02-04-2018 ORIF, ankle STEEL,SURGICAL DS20 FDA Start: 02-04-2018 ORIF, ankle 2.7MM LOCKING SCREW FDA Start: 01-24-2018 ORIF, ankle 2.7MM LOCKING SCREW FDA Start: 01-24-2018 ORIF, ankle 3.5MM LOCKING SCREW FDA Start: 01-24-2018 ORIF, ankle 3.5MM NON LOCK CORTICAL SCREW FDA Start: 01-24-2018 ORIF, ankle 3.5MM NON LOCK CORTICAL SCREWS FDA Start: 01-24-2018 ORIF, ankle LOCKING LATERAL HOOK PLATE FDA Start: 01-24-2018 ORIF, ankle PASTE,BONE DBX 5CC FDA Start : 01-24-2018 ORIF, ankle 4.0MM LO PRO CANNULATED SCREW FDA Start: 02-04-2018 ORIF, ankle 7.0MM STAINLESS STEEL WASHER FDA Start: 02-04-2018 ORIF, ankle HEADLESS COMP SCREW FDA Start: 02-04-2018 ORIF, ankle STEEL,SURGICAL DS20 FDA Start: 02-04-2018 ORIF, ankle 2.7MM LOCKING SCREW FDA Start: 01-24-2018 ORIF, ankle 2.7MM LOCKING SCREW FDA Start: 01-24-2018 ORIF, ankle 3.5MM LOCKING SCREW FDA Start: 01-24-2018 ORIF, ankle 3.5MM NON LOCK CORTICAL SCREW FDA Start: 01-24-2018 ORIF, ankle 3.5MM NON LOCK CORTICAL SCREWS FDA Start: 01-24-2018 ORIF, ankle LOCKING LATERAL HOOK PLATE FDA Start: 01-24-2018 ORIF, ankle PASTE,BONE DBX 5CC FDA Start : 01-24-2018 ORIF, ankle 4.0MM LO PRO CANNULATED SCREW FDA Start: 02-04-2018 ORIF, ankle 7.0MM STAINLESS STEEL WASHER FDA Start: 02-04-2018 ORIF, ankle HEADLESS COMP SCREW FDA Start: 02-04-2018 ORIF, ankle STEEL,SURGICAL DS20 FDA Start: 02-04-2018 ORIF, ankle 2.7MM LOCKING SCREW FDA Start: 01-24-2018 ORIF, ankle 2.7MM LOCKING SCREW FDA Start: 01-24-2018 ORIF, ankle 3.5MM LOCKING SCREW FDA Start: 01-24-2018 ORIF, ankle 3.5MM NON LOCK CORTICAL SCREW FDA Start: 01-24-2018 ORIF, ankle 3.5MM NON LOCK CORTICAL SCREWS FDA Start: 01-24-2018 ORIF, ankle LOCKING LATERAL HOOK PLATE FDA Start: 01-24-2018 ORIF, ankle PASTE,BONE DBX 5CC FDA Start : 01-24-2018 ORIF, ankle 4.0MM LO PRO CANNULATED SCREW FDA Start: 02-04-2018 ORIF, ankle 7.0MM STAINLESS STEEL WASHER FDA Start: 02-04-2018 ORIF, ankle HEADLESS COMP SCREW FDA Start: 02-04-2018 ORIF, ankle STEEL,SURGICAL DS20 FDA Start: 02-04-2018 ORIF, ankle 2.7MM LOCKING SCREW FDA Start: 01-24-2018 ORIF, ankle 2.7MM LOCKING SCREW FDA Start: 01-24-2018 ORIF, ankle 3.5MM LOCKING SCREW FDA Start: 01-24-2018 ORIF, ankle 3.5MM NON LOCK CORTICAL SCREW FDA Start: 01-24-2018 ORIF, ankle 3.5MM NON LOCK CORTICAL SCREWS FDA Start: 01-24-2018 ORIF, ankle LOCKING LATERAL HOOK PLATE FDA Start: 01-24-2018 ORIF, ankle PASTE,BONE DBX 5CC FDA Start : 01-24-2018 ORIF, ankle 4.0MM LO PRO CANNULATED SCREW FDA Start: 02-04-2018 ORIF, ankle 7.0MM STAINLESS STEEL WASHER FDA Start: 02-04-2018 ORIF, ankle HEADLESS COMP SCREW FDA Start: 02-04-2018 ORIF, ankle STEEL,SURGICAL DS20 FDA Start: 02-04-2018 ORIF, ankle 2.7MM LOCKING SCREW FDA Start: 01-24-2018 ORIF, ankle 2.7MM LOCKING SCREW FDA Start: 01-24-2018 ORIF, ankle 3.5MM LOCKING SCREW FDA Start: 01-24-2018 ORIF, ankle 3.5MM NON LOCK CORTICAL SCREW FDA Start: 01-24-2018 ORIF, ankle 3.5MM NON LOCK CORTICAL SCREWS FDA Start: 01-24-2018 ORIF, ankle LOCKING LATERAL HOOK PLATE FDA Start: 01-24-2018 ORIF, ankle PASTE,BONE DBX 5CC FDA Start : 01-24-2018 ORIF, ankle 4.0MM LO PRO CANNULATED SCREW FDA Start: 02-04-2018 ORIF, ankle 7.0MM STAINLESS STEEL WASHER FDA Start: 02-04-2018 ORIF, ankle HEADLESS COMP SCREW FDA Start: 02-04-2018 ORIF, ankle STEEL,SURGICAL DS20 FDA Start: 02-04-2018 ORIF, ankle 2.7MM LOCKING SCREW FDA Start: 01-24-2018 ORIF, ankle 2.7MM LOCKING SCREW FDA Start: 01-24-2018 ORIF, ankle 3.5MM LOCKING SCREW FDA Start: 01-24-2018 ORIF, ankle 3.5MM NON LOCK CORTICAL SCREW FDA Start: 01-24-2018 ORIF, ankle 3.5MM NON LOCK CORTICAL SCREWS FDA Start: 01-24-2018 ORIF, ankle LOCKING LATERAL HOOK PLATE FDA Start: 01-24-2018 ORIF, ankle PASTE,BONE DBX 5CC FDA Start : 01-24-2018 ORIF, ankle 4.0MM LO PRO CANNULATED SCREW FDA Start: 02-04-2018 ORIF, ankle 7.0MM STAINLESS STEEL WASHER FDA Start: 02-04-2018 ORIF, ankle HEADLESS COMP SCREW FDA Start: 02-04-2018 ORIF, ankle STEEL,SURGICAL DS20 FDA Start: 02-04-2018 ORIF, ankle 2.7MM LOCKING SCREW FDA Start: 01-24-2018 ORIF, ankle 2.7MM LOCKING SCREW FDA Start: 01-24-2018 ORIF, ankle 3.5MM LOCKING SCREW FDA Start: 01-24-2018 ORIF, ankle 3.5MM NON LOCK CORTICAL SCREW FDA Start: 01-24-2018 ORIF, ankle 3.5MM NON LOCK CORTICAL SCREWS FDA Start: 01-24-2018 ORIF, ankle LOCKING LATERAL HOOK PLATE FDA Start: 01-24-2018 ORIF, ankle PASTE,BONE DBX 5CC FDA Start : 01-24-2018 ORIF, ankle 4.0MM LO PRO CANNULATED SCREW FDA Start: 02-04-2018 ORIF, ankle 7.0MM STAINLESS STEEL WASHER FDA Start: 02-04-2018 ORIF, ankle HEADLESS COMP SCREW FDA Start: 02-04-2018 ORIF, ankle STEEL,SURGICAL DS20 FDA Start: 02-04-2018 ORIF, ankle 2.7MM LOCKING SCREW FDA Start: 01-24-2018 ORIF, ankle 2.7MM LOCKING SCREW FDA Start: 01-24-2018 ORIF, ankle 3.5MM LOCKING SCREW FDA Start: 01-24-2018 ORIF, ankle 3.5MM NON LOCK CORTICAL SCREW FDA Start: 01-24-2018 ORIF, ankle 3.5MM NON LOCK CORTICAL SCREWS FDA Start: 01-24-2018 ORIF, ankle LOCKING LATERAL HOOK PLATE FDA Start: 01-24-2018 ORIF, ankle PASTE,BONE DBX 5CC FDA Start : 01-24-2018 ORIF, ankle 4.0MM LO PRO CANNULATED SCREW FDA Start: 02-04-2018 ORIF, ankle 7.0MM STAINLESS STEEL WASHER FDA Start: 02-04-2018 ORIF, ankle HEADLESS COMP SCREW FDA Start: 02-04-2018 ORIF, ankle STEEL,SURGICAL DS20 FDA Start: 02-04-2018 ORIF, ankle 2.7MM LOCKING SCREW FDA Start: 01-24-2018 ORIF, ankle 2.7MM LOCKING SCREW FDA Start: 01-24-2018 ORIF, ankle 3.5MM LOCKING SCREW FDA Start: 01-24-2018 ORIF, ankle 3.5MM NON LOCK CORTICAL SCREW FDA Start: 01-24-2018 ORIF, ankle 3.5MM NON LOCK CORTICAL SCREWS FDA Start: 01-24-2018 ORIF, ankle LOCKING LATERAL HOOK PLATE FDA Start: 01-24-2018 ORIF, ankle PASTE,BONE DBX 5CC FDA Start : 01-24-2018 ORIF, ankle 4.0MM LO PRO CANNULATED SCREW FDA Start: 02-04-2018 ORIF, ankle 7.0MM STAINLESS STEEL WASHER FDA Start: 02-04-2018 ORIF, ankle HEADLESS COMP SCREW FDA Start: 02-04-2018 ORIF, ankle STEEL,SURGICAL DS20 FDA Start: 02-04-2018 ORIF, ankle 2.7MM LOCKING SCREW FDA Start: 01-24-2018 ORIF, ankle 2.7MM LOCKING SCREW FDA Start: 01-24-2018 ORIF, ankle 3.5MM LOCKING SCREW FDA Start: 01-24-2018 ORIF, ankle 3.5MM NON LOCK CORTICAL SCREW FDA Start: 01-24-2018 ORIF, ankle 3.5MM NON LOCK CORTICAL SCREWS FDA Start: 01-24-2018 ORIF, ankle LOCKING LATERAL HOOK PLATE FDA Start: 01-24-2018 ORIF, ankle PASTE,BONE DBX 5CC FDA Start : 01-24-2018 ORIF, ankle 4.0MM LO PRO CANNULATED SCREW FDA Start: 02-04-2018 ORIF, ankle 7.0MM STAINLESS STEEL WASHER FDA Start: 02-04-2018 ORIF, ankle HEADLESS COMP SCREW FDA Start: 02-04-2018 ORIF, ankle STEEL,SURGICAL DS20 FDA Start: 02-04-2018 ORIF, ankle 2.7MM LOCKING SCREW FDA Start: 01-24-2018 ORIF, ankle 2.7MM LOCKING SCREW FDA Start: 01-24-2018 ORIF, ankle 3.5MM LOCKING SCREW FDA Start: 01-24-2018 ORIF, ankle 3.5MM NON LOCK CORTICAL SCREW FDA Start: 01-24-2018 ORIF, ankle 3.5MM NON LOCK CORTICAL SCREWS FDA Start: 01-24-2018 ORIF, ankle LOCKING LATERAL HOOK PLATE FDA Start: 01-24-2018 ORIF, ankle PASTE,BONE DBX 5CC FDA Start : 01-24-2018 ORIF, ankle 4.0MM LO PRO CANNULATED SCREW FDA Start: 02-04-2018 ORIF, ankle 7.0MM STAINLESS STEEL WASHER FDA Start: 02-04-2018 ORIF, ankle HEADLESS COMP SCREW FDA Start: 02-04-2018 ORIF, ankle STEEL,SURGICAL DS20 FDA Start: 02-04-2018 ORIF, ankle 2.7MM LOCKING SCREW FDA Start: 01-24-2018 ORIF, ankle 2.7MM LOCKING SCREW FDA Start: 01-24-2018 ORIF, ankle 3.5MM LOCKING SCREW FDA Start: 01-24-2018 ORIF, ankle 3.5MM NON LOCK CORTICAL SCREW FDA Start: 01-24-2018 ORIF, ankle 3.5MM NON LOCK CORTICAL SCREWS FDA Start: 01-24-2018 ORIF, ankle LOCKING LATERAL HOOK PLATE FDA Start: 01-24-2018 ORIF, ankle PASTE,BONE DBX 5CC FDA Start : 01-24-2018 ORIF, ankle 4.0MM LO PRO CANNULATED SCREW FDA Start: 02-04-2018 ORIF, ankle 7.0MM STAINLESS STEEL WASHER FDA Start: 02-04-2018 ORIF, ankle HEADLESS COMP SCREW FDA Start: 02-04-2018 ORIF, ankle STEEL,SURGICAL DS20 FDA Start: 02-04-2018 ORIF, ankle 2.7MM LOCKING SCREW FDA Start: 01-24-2018 ORIF, ankle 2.7MM LOCKING SCREW FDA Start: 01-24-2018 ORIF, ankle 3.5MM LOCKING SCREW FDA Start: 01-24-2018 ORIF, ankle 3.5MM NON LOCK CORTICAL SCREW FDA Start: 01-24-2018 ORIF, ankle 3.5MM NON LOCK CORTICAL SCREWS FDA Start: 01-24-2018 ORIF, ankle LOCKING LATERAL HOOK PLATE FDA Start: 01-24-2018 ORIF, ankle PASTE,BONE DBX 5CC FDA Start : 01-24-2018 ORIF, ankle 4.0MM LO PRO CANNULATED SCREW FDA Start: 02-04-2018 ORIF, ankle 7.0MM STAINLESS STEEL WASHER FDA Start: 02-04-2018 ORIF, ankle HEADLESS COMP SCREW FDA Start: 02-04-2018 ORIF, ankle STEEL,SURGICAL DS20 FDA Start: 02-04-2018 ORIF, ankle 2.7MM LOCKING SCREW FDA Start: 01-24-2018 ORIF, ankle 2.7MM LOCKING SCREW FDA Start: 01-24-2018 ORIF, ankle 3.5MM LOCKING SCREW FDA Start: 01-24-2018 ORIF, ankle 3.5MM NON LOCK CORTICAL SCREW FDA Start: 01-24-2018 ORIF, ankle 3.5MM NON LOCK CORTICAL SCREWS FDA Start: 01-24-2018 ORIF, ankle LOCKING LATERAL HOOK PLATE FDA Start: 01-24-2018 ORIF, ankle PASTE,BONE DBX 5CC FDA Start : 01-24-2018 ORIF, ankle 4.0MM LO PRO CANNULATED SCREW FDA Start: 02-04-2018 ORIF, ankle 7.0MM STAINLESS STEEL WASHER FDA Start: 02-04-2018 ORIF, ankle HEADLESS COMP SCREW FDA Start: 02-04-2018 ORIF, ankle STEEL,SURGICAL DS20 FDA Start: 02-04-2018 ORIF, ankle 2.7MM LOCKING SCREW FDA Start: 01-24-2018 ORIF, ankle 2.7MM LOCKING SCREW FDA Start: 01-24-2018 ORIF, ankle 3.5MM LOCKING SCREW FDA Start: 01-24-2018 ORIF, ankle 3.5MM NON LOCK CORTICAL SCREW FDA Start: 01-24-2018 ORIF, ankle 3.5MM NON LOCK CORTICAL SCREWS FDA Start: 01-24-2018 ORIF, ankle LOCKING LATERAL HOOK PLATE FDA Start: 01-24-2018 ORIF, ankle PASTE,BONE DBX 5CC FDA Start : 01-24-2018 ORIF, ankle 4.0MM LO PRO CANNULATED SCREW FDA Start: 02-04-2018 ORIF, ankle 7.0MM STAINLESS STEEL WASHER FDA Start: 02-04-2018 ORIF, ankle HEADLESS COMP SCREW FDA Start: 02-04-2018 ORIF, ankle STEEL,SURGICAL DS20 FDA Start: 02-04-2018 [id number], [id number], [id number], [id number], [id number], [id number] Start: 12-27-2006 End: 10-22-2023 Comment on above: Test blood sugar(s) 2 times daily. Use once daily as di rected. Dx E11.29 Test twice daily 250 .02 Goals Date Patient Goal Desired Activity /State Personal health goal Comment on above: Formatting of this n ote might be different from the original. This patient has the following Congestive Heart Failure Health Maintenance goals: Two PCP Visits annually, Two Cardiology Visits annually, and Medication review by PCP or Pharmacy once a year This patient has the following education goals: Keeping Track of Weight , Activity Guidelines, Exercise Guidelines, Understanding Heart Failure, and CHF DEVYN education provided - Heart Failure [facility] Patient will meet these goals by 03/10 (describe interventions done by PCC) Formatting of this n ote might be different from the original. This patient has the following Diabetes Health Maintenance goals: HBA1C < 8, Diabetic yearly eye screening, Diabetic foot exam, Medication Adherence, and Consult to Diabetes education. This patient has the following education goals: Blood Sugar Monitoring: Importance of, Signs and Symptoms of low blood sugar/how to manage low blood sugar , Medication Compliance, and Understanding Medication Patient will meet these goals by: 03/10 (describe interventions done by PCC) Functional Status Date Assessment Result Facility 09-23-2024 Total score [AUDIT-C] 0 09/24/19 25 11:00 AM EDT Neel Turpin MD [facility] 12-27-2021 Functional status Ambulates;[facility] Work Phone: 12-26-2021 Functional status Rolling Walker [facility] Work Phone: 12-22-2021 Functional status Ambulates;[facility] Work Phone: 10-07-2014 Are you deaf, or do you have serious difficulty hearing No 10/07/2014 1:44 PM EDT Danuta Green Ma [facility] 10-07-2014 Are you blind, or do you have serious difficulty seeing, even when wearing glasses No 10/07/2014 1:44 PM EDT Danuta Green Ma No [facility] 10-07-2014 Do you have serious difficulty walking or climbing stairs No 10/07/2014 1:44 PM EDT Danuta Green Ma No [facility] 10-07-2014 Do you have difficul ty dressing or bathing No 10/07/2014 1:44 PM EDT Danuta Green Ma No [facility] 10-07-2014 Because of a physica l, mental, or emotional condition, do you have difficulty doing errands alone such as visiting a physician's office or shopping No 10/07/2014 1:44 PM EDT Danuta Green Ma No [facility] Functional observable [facility] Mental Status Date Assessment Result Facility 07-17-2023 Cognitive function Voice/Name [facility] Work Phone: 04-27-2022 Cognitive function Voice/Name [facility] Work Phone: 03-02-2022 Cognitive function Voice/Name [facility] Work Phone: 01-29-2022 Cognitive functi ons [id number] [facility] 12-29-2021 Cognitive function Voice/Name [facility] Work Phone: 12-27-2021 Cognitive function Voice/Name [facility] Work Phone: 12-27-2021 Cognitive function Appropriate;Cooperativ e [facility] Work Phone: 12-22-2021 Cognitive function Voice/Name [facility] Work Phone: 12-01-2021 Cognitive function Awake;Alert;A ppropriate; Follows Commands [facility] Work Phone: 08-09-2021 Cognitive function Awake;Alert;A ppropriate; Follows Commands [facility] Work Phone: 10-07-2014 Because of a physica l, mental, or emotional condition, do you have serious difficulty concentrating, remembering, or making decisions No 10/07/2014 1:44 PM EDT Peter Oseguera, Danuta Mann No [facility] Clinical Notes 10-24-2017 to 09-23-2024 Patient InstructionsNeel Turpin MD - 09/23/2024 10:52 AM EDNancy Orosco - 09/16/2024 3:00 PM EDTPanebinuTessa gooden RPh - 09/16/2024 3:00 PM EDTPatient InstructionsPatient Instructions Note Date & Type Note Facility 09-23-2024 Instructions Neel Turpin MD - 09/23/2024 11:44 AM EDT Screening schedule The following prevention plan is recommended: RSV Vaccine(1 - 1-dose 75+ series) Never done HbA1C due on 06/23/2024 Medicare Annual Wellness Visit due on 09/22/2024 LDL Cholesterol due on 09/08/2024 Anxiety Screening due on 09/22/2024 WHAT YOU CAN DO TO PREVENT FALLS Many falls can be prevented. By making some changes, you can lower your chances of falling. Four things YOU can do to prevent falls for you* and your caregiver 1. Begin a regular exercise program Exercise is one of the most important ways to lower your chances of falling. It makes you stronger and helps you feel better. Exercises that improve balance and coordination (like Jose Chi) are the most helpful. Lack of exercise leads to weakness and increases your chances of falling. Ask your doctor or health care provider about the best type of exercise program for you. 2. Have your health care provider review your medicines Have your doctor or pharmacist review all the medicines you take, even [id number] medicines. As you get older, the way medicines work in your body can change. Some medicines, or combinations of medicines, can make you sleepy or dizzy and can cause you to fall. 3. Have your vision checked Have your eyes checked by an eye doctor at least once a year. You may be wearing the wrong glasses or have a condition like glaucoma or cataracts that limits your vision. Poor vision can increase your chances of falling. 4. Make your home safer About half of all falls happen at home. To make your home safer: Remove things you can trip over (like papers, books, clothes, and shoes) from stairs and places where you walk. Remove small throw rugs or use double-sided tape to keep the rugs from slipping. Keep items you use often in cabinets you can reach easily without using a step stool. Have grab bars put in next to your toilet and in the tub or shower. Use non-slip mats in the bathtub and on shower floors. Improve the lighting in your home. As you get older, you need brighter lights to see well. Hang light-weight curtains or shades to reduce glare. Have handrails and lights put in on all staircases. Wear shoes both inside and outside the house. Avoid going barefoot or wearing slippers. For more information, contact: Centers for Disease Control and Prevention www.cdc.gov/injury * This information may not apply if you have certain medical conditions. documented in this encounter [facility] 09-23-2024 History of Present illness Narrative This note was created using [employer]. Subjective Val Erickson is a 79 year old female here with her son. She has gained 11 pounds in one month. Nephrology is cautious about her diuresis due to CKD. Cardiology has not made any medication changes. Son and caregivers voiced frustration about her effort to improve mobility. She has regressed after hip fracture surgery from ambulating hallways with her walker to being limited to a room. She indicated lack of motivation. Review of Systems Constitutional: Positive for unexpected weight change. Negative for fatigue and fever. HENT: Negative for congestion. Respiratory: Negative for cough, chest tightness, shortness of breath and wheezing. Cardiovascular: Positive for leg swelling. Negative for chest pain and palpitations. Gastrointestinal: Negative for abdominal pain, diarrhea, nausea and vomiting. Genitourinary: Negative for dysuria. Musculoskeletal: Positive for gait problem. Negative for arthralgias and back pain. Skin: Negative for wound. Neurological: Positive for weakness. Negative for dizziness and headaches. Psychiatric/Behavioral: Positive for dysphoric mood. ACTIVE PROBLEM LIST Essential Hypertension Generalized Osteoarthritis Allergic Rhinitis Due to Animal (Cat) (Dog) Hair and Dander Hyperlipemia Type II Diabetes Mellitus With Renal Manifestations (Hcc) Obesity, Class Iii, Bmi 40-49.9 (Morbid Obesity) ([facility]) Ckd (Chronic Kidney Disease) Stage 4, Gfr 15-29 Ml/Min ([facility]) Anemia Osteopenia Hyperparathyroidism, Secondary Renal ([facility]) Nonexudative Age-Related Macular Degeneration, Bilateral, Intermediate Dry Stage Pseudophakia, Both Eyes Ddd (Degenerative Disc Disease), 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 ([facility]) Hyponatremia Hypertensive Heart Disease With Acute On Chronic Systolic Congestive Heart Failure ([facility]) Hypoxemia Depressive Disorder Frequent Falls Chronic Combined Systolic and Diastolic Heart Failure ([facility]) Biventricular Implantable Cardioverter-Defibrillator (Icd) in Situ Chronic Obstructive Pulmonary Disease, Unspecified Copd Type ([facility]) Social History Tobacco Use Smoking status: Never Smokeless tobacco: Never Vaping Use Vaping status: Never Used Substance Use Topics Alcohol use: No Drug use: No Current Outpatient Medications Medication Sig insulin glargine (LANTUS SOLOSTAR U-100 INSULIN) 100 unit/mL (3 mL) Inject 40 Units subcutaneously daily at bedtime. tirzepatide (MOUNJARO) 5 mg/0.5 mL pen injector Inject 5 mg subcutaneously one time a week. busPIRone (BUSPAR) 10 mg tablet Take 1 tablet by mouth two times a day. furosemide (LASIX) 20 mg tablet Take 1 tablet by mouth once daily. Take an extra 20 mg tablet daily as needed venlafaxine ER (EFFEXOR XR) 75 mg 24 hr capsule Take 1 capsule by mouth once daily. gabapentin (NEURONTIN) 300 mg capsule Take 1 capsule by mouth two times a day for 180 days. simvastatin (ZOCOR) 40 mg tablet Take 1 tablet by mouth daily at bedtime. For cholesterol. Insulin [place], Disposable, 29 gauge x 1/2 Use once daily as directed. Dx E11.29 empagliflozin (JARDIANCE) 10 mg tablet Take 1 tablet by mouth once daily. Prescribed by ballistics teacher calcitriol (ROCALTROL) 0.5 mcg capsule Take 0.5 mcg by mouth. clotrimazole (LOTRIMIN) 1 % cream Apply to affected area. lidocaine (SALONPAS) 4 % patch Apply 1 Patch as directed. hydrALAZINE (APRESOLINE) 25 mg tablet Take 25 mg by mouth three times a day. metoprolol succinate ER (TOPROL XL) 50 mg 24 hr tablet Take 1 tablet by mouth once daily. Per Dr. Yulia Antoine, cardiology. nhulbuuxlnn-ybtibaxrd-sanpvuxp (TRELEGY ELLIPTA) 100-62.5-25 mcg inhalation powder Inhale 1 Puff as instructed once daily. docusate sodium (COLACE) 100 mg capsule Take 1 capsule by mouth as needed. melatonin 5 mg tablet Take 2 tablets by mouth. senna (SENOKOT) 8.6 mg tab Take 1 tablet by mouth as needed. Vit C-Vit A-Bixcgk-TdAv-Lutein (PRESERVISION LUTEIN) 226 mg-200 unit -5 mg-0.8 mg cap Take 1 capsule by mouth once daily. blood sugar diagnostic ([employer] ULTRA TEST) test strip Test blood sugar(s) 2 times daily. epoetin zari (PROCRIT,EPOGEN) 10,000 unit/mL injection Inject 10,000 Units subcutaneously q 4 WEEKS. 12,000 Units every two weeks. Lancets (FREESTYLE LANCETS) Misc Misc Test twice daily 250.02 No current facility-administered medications for this visit. Objective BP 102/68 (BP Site: Left Arm, BP Position: Sitting, BP Cuff Size: Large Adult) Pulse 96 Ht 153.9 cm (5' 0.6) Wt 126.9 kg (279 lb 12.2 oz) SpO2 94% BMI 53.56 kg/m Physical Exam Constitutional: General: She is not in acute distress. Appearance: She is obese. She is not ill-appearing. Comments: Wheelchair bound. Cardiovascular: Rate and Rhythm: Normal rate and regular rhythm. Heart sounds: S1 normal and S2 normal. No murmur heard. Pulmonary: Breath sounds: Examination of the right-lower field reveals decreased breath sounds. Examination of the left-lower field reveals decreased breath sounds. Decreased breath sounds present. No wheezing, rhonchi or rales. Musculoskeletal: Right lower le+ Pitting Edema present. Left lower le+ Pitting Edema present. Neurological: General: No focal deficit present. Mental Status: She is alert. Motor: Weakness present. Feet:Shoes and socks removed, trace DP distal pulses, vibratory perception decreased, callus of left big toe, hammertoes, and nails notable for Deformed or Hypertrophic , flat feet, ankle valgus bilaterally. Latest Ref Rng 09/23/2024 Hemoglobin A1C (POCT) 4.3 - 5.6 % 6.9 ! Legend: ! Abnormal Assessment and Plan 1. Medicare annual wellness visit, subsequent - ICD9: V70.0, ICD10: Z00.00 (primary diagnosis) - see wellness visit. 2. DDD (degenerative disc disease), thoracolumbar - ICD9: 722.51, ICD10: M51.35 Controlled. Medication refilled. - GABAPENTIN 300 MG CAPSULE 3. Type 2 diabetes mellitus with stage 4 chronic kidney disease, with long-term current use of insulin (HCC) - ICD9: 250.40, 585.4, V58.67, ICD10: E11.22, N18.4, Z79.4 - Improving control - Continue current medications - eGFR: Stable - HEMOGLOBIN A1C (POC) - LANTUS SOLOSTAR U-100 INSULIN 100 UNIT/ML (3 ML) SUBCUTANEOUS PEN 4. Encounter for screening examination for other mental health and behavioral disorders - ICD9: V79.8, ICD10: Z13.39 - ANXIETY SCREENING 5. Chronic obstructive pulmonary disease, unspecified COPD type (HCC) - ICD9: 496, ICD10: J44.9 - Symptoms controlled - Continue current medications - EXTRA HEAVY-DUTY WHEELCHAIR 6. Essential hypertension - ICD9: 401.9, ICD10: I10 - Controlled - Continue current medications 7. Mixed hyperlipidemia - ICD9: 272.2, ICD10: E78.2 - Control undetermined, due for labs - Continue current medications - Counseled on healthy diet and regular exercise - LIPID PANEL, FASTING 8. Obesity, Class III, BMI 40-49.9 (morbid obesity) (HCC) - ICD9: 278.01, ICD10: E66.813 Weight increasing - Behavioral intervention 9. Chronic combined systolic and diastolic heart failure (HCC) - ICD9: 428.42, ICD10: I50.42 - Compensated - Continue current medications - EXTRA HEAVY-DUTY WHEELCHAIR 10. Depressive disorder - ICD9: 311, ICD10: F32.A Worse. Dose increased. - VENLAFAXINE ER 150 MG CAPSULE,EXTENDED RELEASE 24 HR Neel Turpin MD Val Erickson is a 79 year old female here for a Medicare wellness visit. Medicare Health Risk Assessment General Health Fair Exercise: Minutes/Day 0 min Exercise: Days/Week 0 days Alcohol: Daily Use Never Alcohol: Drinks/Day Patient does not drink Alcohol: 6 or more drinks Never Feel off balance Yes Concerns: Teeth/Dentures No Concerns: Sexual function No Troubled by feelings Anxious; Stressed; Lonely Frequency: Eating healthy diet Nearly every day ADLs requiring help Grocery shopping; Cooking; Housework; Bathing; Sitting or standing; Walking; Handling finances; Driving Safety precautions in home/vehicle Yes Smoke, vape, chews tobacco No Difficulty hearing Yes Difficulty seeing No Current Providers Specialists: I have reviewed specialist-related care of the patient in the medical record. Current care team: Patient Care Team: Neel Turpin MD as PCP - General Tessa Brock RPh as Pharmacist (Pharmacy) Kacy Mary APRN.C[employer]ONUT COOKER as Fire Alarm Mechanic (Internal Medicine) Kang Vickers (Optometry) Outside specialists seen: Denise Louise MD (Nephrology) Chris Antoine MD ([facility] Cardiology) Paula Walter MD ([facility] Pulmonary) JEAN-PAUL Hicks (Podiatry [facility]) DME O2 supplier. [facility]. Medical/Family history review Reviewed and updated problem list, medical/surgical/family/social history, medications, and allergies. Opioid use review Opioid Medications (last 90 days) No data to display Anxiety/Depression screening Recommendation: continuing current treatment plan Cognitive screening Mini Cog Score: 5 Cognitive screening reviewed and No further action needed (score 3-5). Functional Observation Was the patient's Timed Up & Go test unsteady or >= 12 seconds? Yes Advance Care Planning Patient did not wish or was not able to name a surrogate decision maker or provide an advance care plan Measurements BP 102/68 (BP Site: Left Arm, BP Position: Sitting, BP Cuff Size: Large Adult) Pulse 96 Ht 153.9 cm (5' 0.6) Wt 126.9 kg (279 lb 12.2 oz) SpO2 94% BMI 53.56 kg/m Vision Screening: Right: 20/200 Left: 20/ 200 Both: 20/200 Assessment/Plan Medicare annual wellness visit, subsequent (Z00.00) - Counseled on healthy diet and regular exercise - Fall avoidance information provided - Personalized prevention plan provided - Discussed need for and benefit of weight loss. BMI 53.56 kg/(m^2) documented in this encounter [facility] 09-16-2024 History of Present illness Narrative Primary Care Pharmacy Visit CC (Reason for Consult): (E11.22, N18.4, Z79.4) Type 2 diabetes mellitus with stage 4 chronic kidney disease, with long-term current use of insulin (HCC) (primary encounter diagnosis) Goal(s): A1c <8% Last Collaborating Provider Visit: 08/05/24 with Kacy Mary CNP Val Erickson is a 79 year old female presenting for follow up visit telephone call. Patient consents to pharmacy collaborative practice agreement. . Last Pharmacy Visit: 08/19/24 - Finish up supply of Mounjaro 2.5 mg this week and then increase to Mounjaro 5 mg once weekly, as previously prescribed HPI: Reports things are going well. Having trouble walking, having to use walker, so she is not exercising as much. Finished the Mounjaro 2.5 mg weekly, and is on her last pen of the Mounjaro 5 mg weekly. Is expecting to take it on Saturday. Reported on day 3 of the higher dose, she had a spell of confusion and sweating for ~4 hours. Self-reported her daily averages with a high around of 200 and a low of 120. Has to eat a snack before bed or has nocturnal hypoglycemia (~78). Current DM Medications: Lantus 45 Units daily Jardiance 10 mg daily Mounjaro 5 mg weekly on saturdays Previously Trialed DM Meds: Glimepiride - nocturnal hypoglycemia Metformin - reduced renal fxn Pioglitazone - swelling Trulicity - tolerated well; unable to procure d/t backorder - switched to Mounjaro Mounjaro - tolerated well; procurement issues (switched to Rybelsus); dc'd during recent hospitalization (04/2024) Rybelsus- intolerable indigestion Diet Reports no major changes in diet GLYCEMIC CONTROL: Glucometer present at visit: No Hypoglycemia: Yes, has some night time hypoglycemia symptoms if she does not eat a snack before bedtime. This morning 138 Highest ~200 Lowest ~120 Past medical history reviewed. ALLERGIES Allergen Reactions Rybelsus [Semagluti* Intolerance Uncontrollable indigestion Levaquin [Levofloxa* itching,diarrhea,dausea,burning skin Seasonal Allergies Other: See Comments Sinus Sulfa (Sulfonamide * rash and hives Current Outpatient Medications Medication Sig Dispense Refill busPIRone (BUSPAR) 10 mg tablet Take 1 tablet by mouth two times a day. 180 tablet 3 tirzepatide (MOUNJARO) 5 mg/0.5 mL pen injector Inject 5 mg subcutaneously one time a week. 2 mL 1 furosemide (LASIX) 20 mg tablet Take 1 tablet by mouth once daily. Take an extra 20 mg tablet daily as needed 120 tablet 1 venlafaxine ER (EFFEXOR XR) 75 mg 24 hr capsule Take 1 capsule by mouth once daily. 90 capsule 3 insulin glargine (LANTUS SOLOSTAR U-100 INSULIN) 100 unit/mL (3 mL) Inject 45 Units subcutaneously daily at bedtime. gabapentin (NEURONTIN) 300 mg capsule Take 1 capsule by mouth two times a day for 180 days. 180 capsule 1 simvastatin (ZOCOR) 40 mg tablet Take 1 tablet by mouth daily at bedtime. For cholesterol. 90 tablet 3 Insulin [place], Disposable, 29 gauge x 1/2 Use once daily as directed. Dx E11.29 100 Each 4 empagliflozin (JARDIANCE) 10 mg tablet Take 1 tablet by mouth once daily. Prescribed by ballistics teacher calcitriol (ROCALTROL) 0.5 mcg capsule Take 0.5 mcg by mouth. clotrimazole (LOTRIMIN) 1 % cream Apply to affected area. lidocaine (SALONPAS) 4 % patch Apply 1 Patch as directed. hydrALAZINE (APRESOLINE) 25 mg tablet Take 25 mg by mouth three times a day. metoprolol succinate ER (TOPROL XL) 50 mg 24 hr tablet Take 1 tablet by mouth once daily. Per Dr. Yulia Antoine, cardiology. emjdeyfzmok-vqqmggbcj-qpimlgiy (TRELEGY ELLIPTA) 100-62.5-25 mcg inhalation powder Inhale 1 Puff as instructed once daily. docusate sodium (COLACE) 100 mg capsule Take 1 capsule by mouth as needed. melatonin 5 mg tablet Take 2 tablets by mouth. senna (SENOKOT) 8.6 mg tab Take 1 tablet by mouth as needed. Vit C-Vit L-Oqdvls-BgOu-Lutein (PRESERVISION LUTEIN) 226 mg-200 unit -5 mg-0.8 mg cap Take 1 capsule by mouth once daily. blood sugar diagnostic (ONETOUCH ULTRA TEST) test strip Test blood sugar(s) 2 times daily. 200 Strip 3 epoetin zari (PROCRIT,EPOGEN) 10,000 [...] / Product Type: Medicare / Medications affordable? No PHARMACOTHERAPY PREVENTATIVE MEDS: On GEOVANNI/ARB: No On Statin: Yes On ASA: No EXAM: There were no vitals taken for this visit. Last 3 Encounter BP Readings: Date: BP: 08/19/2024 124/86 08/05/2024 132/80 07/06/2024 118/76 Wt: 121.6 kg (268 lb 1.3 oz) BMI: 46.02 kg/(m^2) LABS: Lab Results Component Value Date HBA1C 11.0 03/25/2024 HBA1C 7.0 09/23/2023 HBA1C 8.3 05/01/2023 HBA1C 6.5 05/19/2018 HBA1C 6.4 02/18/2012 HBA1C [...] 585.4, V58.67, ICD10: E11.22, N18.4, Z79.4 - Uncontrolled- Not much improvement in self-reported blood sugar levels, and A1c is not at goal of <8% - Continue Mounjaro 5 mg weekly as prescribed - Continue Jardiance 10 mg daily as prescribed - Decrease Lantus to 40 units daily - To try and help prevent/control the nocturnal hypoglycemia symptoms - Statin prescribed - simvastatin - Blood glucose monitoring on a once daily schedule - Counseled on healthy diet and regular exercise - Discussed diabetic education issues of hypoglycemic/hyperglycemic symptoms and medication-specific side effects and monitoring - Follow up in 7 weeks, sooner should any other issues arise. Overdue Diabetes Health Maintenance: Health Maintenance - Diabetes Topic Date Due Diabetic Foot Exam 06/09/2024 HbA1C 06/23/2024 Dilated Retinal Exam 06/25/2024 LDL Cholesterol 09/08/2024 Follow Up: Next PCP visit: 09/23/24 Next PharmD visit: 11/04/24 Nancy Eaton Pharm D. Candidate 2025 Patient interviewed with the student. Arnold elements of history confirmed. Agree with findings and plan as outlined by the student. My additions to the progress note are underlined. Tessa Brock, PharmD, BCACP Primary Care Clinical Wine And Spirits Clerk documented in this encounter [facility] 09-16-2024 Note HNO ID: [id number] Author: ?, ?, ? Service: ? Author Type: ? Type: Progress Notes Filed: 09/16/2024 16:19 Note Text: Primary Care Pharmacy Visit CC (Reason for Consult): (E11.22, N18.4, Z79.4) Type 2 diabetes mellitus with stage 4 chronic kidney disease, with long-term current use of insulin (HCC) (primary encounter diagnosis) Goal(s): A1c <8% Last Collaborating Provider Visit: 08/05/24 with Kacy Mary CNP Val Erickson is a 79 year old female presenting for follow up visit telephone call. Patient consents to pharmacy collaborative practice agreement. . Last Pharmacy Visit: 08/19/24 - Finish up supply of Mounjaro 2.5 mg this week and then increase to Mounjaro 5 mg once weekly, as previously prescribed HPI: Reports things are going well. Having trouble walking, having to use walker, so she is not exercising as much. Finished the Mounjaro 2.5 mg weekly, and is on her last pen of the Mounjaro 5 mg weekly. Is expecting to take it on Saturday. Reported on day 3 of the higher dose, she had a spell of confusion and sweating for ~4 hours. Self-reported her daily averages with a high around of 200 and a low of 120. Has to eat a snack before bed or has nocturnal hypoglycemia (~78). Current DM Medications: Lantus 45 Units daily Jardiance 10 mg daily Mounjaro 5 mg weekly on saturdays Previously Trialed DM Meds: Glimepiride - nocturnal hypoglycemia Metformin - reduced renal fxn Pioglitazone - swelling Trulicity - tolerated well; unable to procure d/t backorder - switched to Mounjaro Mounjaro - tolerated well; procurement issues (switched to Rybelsus); dc'd during recent hospitalization (04/2024) Rybelsus- intolerable indigestion Diet Reports no major changes in diet GLYCEMIC CONTROL: Glucometer present at visit: No Hypoglycemia: Yes, has some night time hypoglycemia symptoms if she does not eat a snack before bedtime. This morning 138 Highest ~200 Lowest ~120 Past medical history reviewed. ALLERGIES Allergen Reactions Rybelsus [Semagluti* Intolerance Uncontrollable indigestion Levaquin [Levofloxa* itching,diarrhea,dausea,burning skin Seasonal Allergies Other: See Comments Sinus Sulfa (Sulfonamide * rash and hives Current Outpatient Medications Medication Sig Dispense Refill busPIRone (BUSPAR) 10 mg tablet Take 1 tablet by mouth two times a day. 180 tablet 3 tirzepatide (MOUNJARO) 5 mg/0.5 mL pen injector Inject 5 mg subcutaneously one time a week. 2 mL 1 furosemide (LASIX) 20 mg tablet Take 1 tablet by mouth once daily. Take an extra 20 mg tablet daily as needed 120 tablet 1 venlafaxine ER (EFFEXOR XR) 75 mg 24 hr capsule Take 1 capsule by mouth once daily. 90 capsule 3 insulin glargine (LANTUS SOLOSTAR U-100 INSULIN) 100 unit/mL (3 mL) Inject 45 Units subcutaneously daily at bedtime. gabapentin (NEURONTIN) 300 mg capsule Take 1 capsule by mouth two times a day for 180 days. 180 capsule 1 simvastatin (ZOCOR) 40 mg tablet Take 1 tablet by mouth daily at bedtime. For cholesterol. 90 tablet 3 Insulin [place], Disposable, 29 gauge x 1/2 Use once daily as directed. Dx E11.29 100 Each 4 empagliflozin (JARDIANCE) 10 mg tablet Take 1 tablet by mouth once daily. Prescribed by ballistics teacher calcitriol (ROCALTROL) 0.5 mcg capsule Take 0.5 mcg by mouth. clotrimazole (LOTRIMIN) 1 % cream Apply to affected area. lidocaine (SALONPAS) 4 % patch Apply 1 Patch as directed. hydrALAZINE (APRESOLINE) 25 mg tablet Take 25 mg by mouth three times a day. metoprolol succinate ER (TOPROL XL) 50 mg 24 hr tablet Take 1 tablet by mouth once daily. Per Dr. Yulia Antoine, cardiology. skhkytqnasm-xhisenbjx-egkvnppt (TRELEGY ELLIPTA) 100-62.5-25 mcg inhalation powder Inhale 1 Puff as instructed once daily. docusate sodium (COLACE) 100 mg capsule Take 1 capsule by mouth as needed. melatonin 5 mg tablet Take 2 tablets by mouth. senna (SENOKOT) 8.6 mg tab Take 1 tablet by mouth as needed. Vit C-Vit L-Hlaxou-TfHx-Lutein (PRESERVISION LUTEIN) 226 mg-200 unit -5 mg-0.8 mg cap Take 1 capsule by mouth once daily. blood sugar diagnostic (ONETOUCH ULTRA TEST) test strip Test blood sugar(s) 2 times daily. 200 Strip 3 epoetin zari (PROCRIT,EPOGEN) 10,000 [...] / Product Type: Medicare / Medications affordable? No PHARMACOTHERAPY PREVENTATIVE MEDS: On GEOVANNI/ARB: No On Statin: Yes On ASA: No EXAM: There were no vitals taken for this visit. Last 3 Encounter BP Readings: Date: BP: 08/19/2024 124/86 08/05/2024 132/80 07/06/2024 118/76 Wt: 121.6 kg (268 lb 1.3 oz) BMI: 46.02 kg/(m2) LABS: Lab Results Component (more content not included)... [facility] 09-16-2024 Note HNO ID: [id number] Author: TESSA BROCK RPh Service: ? Author Type: Pharmacist Type: Progress Notes Filed: 09/16/2024 16:19 Note Text: Patient interviewed with the student. Arnold elements of history confirmed. Agree with findings and plan as outlined by the student. My additions to the progress note are underlined. Tessa Brock, PharmD, BCACP Primary Care Clinical Wine And Spirits Clerk [facility] 09-11-2024 Telephone encounter Note Called by nurse Ugarte, about increasing weight, no CP or Shortness of Breath from baseline I asked to increase the lasix from 20 mg to 40 mgs for 3 days. Nataliia Velasquez MD [facility] Work Phone: 09-11-2024 Miscellaneous Notes Called by nurse Ugarte, about increasing weight, no CP or Shortness of Breath from baseline I asked to increase the lasix from 20 mg to 40 mgs for 3 days. RegardsNataliia MD documented in this encounter [facility] 08-31-2024 Telephone encounter Note Taylor with [facility] PT calls to report PT will see pt once a week for 8 more weeks for mobility. Carole Lundy LPN [facility] 08-31-2024 Miscellaneous Notes Taylor with [facility] PT calls to report PT will see pt once a week for 8 more weeks for mobility. Carole Lundy LPN documented in this encounter [facility] 08-19-2024 History of Present illness Narrative Primary Care Pharmacy Visit CC (Reason for Consult): (E11.22, N18.4, Z79.4) Type 2 diabetes mellitus with stage 4 chronic kidney disease, with long-term current use of insulin (HCC) (primary encounter diagnosis) Goal(s): A1c <8% Last Collaborating Provider Visit: 08/05/24 with Kacy Mary CNP Val Erickson is a 79 year old female presenting for follow up visit telephone call. Patient consents to pharmacy collaborative practice agreement. Last Pharmacy Visit: 07/16/24 - plan to resume Mounjaro HPI: Reports doing well States BGs have been up and down lately Just started the Mounjaro 2 weeks ago, has had 2 doses, has 1 more of 2.5 mg and then has a box of the 5 mg dose to start with Current DM Medications: Lantus 45 units once daily Jardiance 10 mg once daily Mounjaro 5 mg once weekly on Saturdays - still finishing up 2.5 mg dose supply Previously Trialed DM Meds: Glimepiride - nocturnal hypoglycemia Metformin - reduced renal fxn Pioglitazone - swelling Trulicity - tolerated well; unable to procure d/t backorder - switched to Mounjaro Mounjaro - tolerated well; procurement issues (switched to Rybelsus); dc'd during recent hospitalization (04/2024) Rybelsus- intolerable indigestion GLYCEMIC CONTROL: Glucometer present at visit: No Hypoglycemia: No Yesterday was 117 Did not check this morning Last week had some higher readings up to 200 Past medical history reviewed. ALLERGIES Allergen Reactions Rybelsus [Semagluti* Intolerance Uncontrollable indigestion Levaquin [Levofloxa* itching,diarrhea,dausea,burning skin Seasonal Allergies Other: See Comments Sinus Sulfa (Sulfonamide * rash and hives Current Outpatient Medications Medication Sig Dispense Refill busPIRone (BUSPAR) 10 mg tablet Take 1 tablet by mouth two times a day. 180 tablet 3 tirzepatide (MOUNJARO) 5 mg/0.5 mL pen injector Inject 5 mg subcutaneously one time a week. 2 mL 1 furosemide (LASIX) 20 mg tablet Take 1 tablet by mouth once daily. Take an extra 20 mg tablet daily as needed 120 tablet 1 venlafaxine ER (EFFEXOR XR) 75 mg 24 hr capsule Take 1 capsule by mouth once daily. 90 capsule 3 insulin glargine (LANTUS SOLOSTAR U-100 INSULIN) 100 unit/mL (3 mL) Inject 45 Units subcutaneously daily at bedtime. gabapentin (NEURONTIN) 300 mg capsule Take 1 capsule by mouth two times a day for 180 days. 180 capsule 1 simvastatin (ZOCOR) 40 mg tablet Take 1 tablet by mouth daily at bedtime. For cholesterol. 90 tablet 3 Insulin [place], Disposable, 29 gauge x 1/2 Use once daily as directed. Dx E11.29 100 Each 4 empagliflozin (JARDIANCE) 10 mg tablet Take 1 tablet by mouth once daily. Prescribed by ballistics teacher calcitriol (ROCALTROL) 0.5 mcg capsule Take 0.5 mcg by mouth. clotrimazole (LOTRIMIN) 1 % cream Apply to affected area. lidocaine (SALONPAS) 4 % patch Apply 1 Patch as directed. hydrALAZINE (APRESOLINE) 25 mg tablet Take 25 mg by mouth three times a day. metoprolol succinate ER (TOPROL XL) 50 mg 24 hr tablet Take 1 tablet by mouth once daily. Per Dr. Yulia Antoine, cardiology. ddusjzxocgn-czrzmblav-tgqpzxci (TRELEGY ELLIPTA) 100-62.5-25 mcg inhalation powder Inhale 1 Puff as instructed once daily. docusate sodium (COLACE) 100 mg capsule Take 1 capsule by mouth as needed. melatonin 5 mg tablet Take 2 tablets by mouth. senna (SENOKOT) 8.6 mg tab Take 1 tablet by mouth as needed. Vit C-Vit N-Ihagmk-DtPh-Lutein (PRESERVISION LUTEIN) 226 mg-200 unit -5 mg-0.8 mg cap Take 1 capsule by mouth once daily. blood sugar diagnostic ([employer] CorporationTOUCH ULTRA TEST) test strip Test blood sugar(s) 2 times daily. 200 Strip 3 epoetin zari (PROCRIT,EPOGEN) 10,000 [...] Last 3 Encounter BP Readings: Date: BP: 08/19/2024 124/86 08/05/2024 132/80 07/06/2024 118/76 Wt: 117.9 kg (260 lb) BMI: 44.63 kg/(m^2) LABS: Lab Results Component Value Date HBA1C 11.0 03/25/2024 HBA1C 7.0 09/23/2023 HBA1C 8.3 05/01/2023 HBA1C 6.5 05/19/2018 HBA1C 6.4 02/18/2012 HBA1C [...] E11.22, N18.4, Z79.4 - Improving control - Continue current medications - Finish up supply of Mounjaro 2.5 mg this week and then increase to Mounjaro 5 mg once weekly, as previously prescribed - Statin prescribed - simvastatin - Blood glucose monitoring on a once daily schedule - Counseled on healthy diet and regular exercise - Discussed diabetic education issues of hypoglycemic/hyperglycemic symptoms and medication-specific side effects and monitoring - Follow up in 1 month, sooner should any other issues arise. Overdue Diabetes Health Maintenance: Health Maintenance - Diabetes Topic Date Due Diabetic Foot Exam 06/09/2024 HbA1C 06/23/2024 Dilated Retinal Exam 06/25/2024 LDL Cholesterol 09/08/2024 Follow Up: Next PCP visit: 09/23/24 Next PharmD visit: 09/16/24 Tessa Brock, PharmD, BCACP Primary Care Clinical Wine And Spir[employer] Clerk documented in this encounter [facility] 08-19-2024 Note HNO ID: [id number] Author: TESSA BROCK RPh Service: ? 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 Patient consents to pharmacy collaborative practice agreement. Last Pharmacy Visit: 07/16/24 - plan to resume Mounjaro HPI: Reports doing well States BGs have been up and down lately Just started the Mounjaro 2 weeks ago, has had 2 doses, has 1 more of 2.5 mg and then has a box of the 5 mg dose to start with Current DM Medications: Lantus 45 units once daily Jardiance 10 mg once daily Mounjaro 5 mg once weekly on Saturdays - still finishing up 2.5 mg dose supply Previously Trialed DM Meds: Glimepiride - nocturnal hypoglycemia Metformin - reduced renal fxn Pioglitazone - swelling Trulicity - tolerated well; unable to procure d/t backorder - switched to Mounjaro Mounjaro - tolerated well; procurement issues (switched to Rybelsus); dc'd during recent hospitalization (04/2024) Rybelsus- intolerable indigestion GLYCEMIC CONTROL: Glucometer present at visit: No Hypoglycemia: No Yesterday was 117 Did not check this morning Last week had some higher readings up to 200 Past medical history reviewed. ALLERGIES Allergen Reactions Rybelsus [Semagluti* Intolerance Uncontrollable indigestion Levaquin [Levofloxa* itching,diarrhea,dausea,burning skin Seasonal Allergies Other: See Comments Sinus Sulfa (Sulfonamide * rash and hives Current Outpatient Medications Medication Sig Dispense Refill busPIRone (BUSPAR) 10 mg tablet Take 1 tablet by mouth two times a day. 180 tablet 3 tirzepatide (MOUNJARO) 5 mg/0.5 mL pen injector Inject 5 mg subcutaneously one time a week. 2 mL 1 furosemide (LASIX) 20 mg tablet Take 1 tablet by mouth once daily. Take an extra 20 mg tablet daily as needed 120 tablet 1 venlafaxine ER (EFFEXOR XR) 75 mg 24 hr capsule Take 1 capsule by mouth once daily. 90 capsule 3 insulin glargine (LANTUS SOLOSTAR U-100 INSULIN) 100 unit/mL (3 mL) Inject 45 Units subcutaneously daily at bedtime. gabapentin (NEURONTIN) 300 mg capsule Take 1 capsule by mouth two times a day for 180 days. 180 capsule 1 simvastatin (ZOCOR) 40 mg tablet Take 1 tablet by mouth daily at bedtime. For cholesterol. 90 tablet 3 Insulin [place], Disposable, 29 gauge x 1/2 Use once daily as directed. Dx E11.29 100 Each 4 empagliflozin (JARDIANCE) 10 mg tablet Take 1 tablet by mouth once daily. Prescribed by ballistics teacher calcitriol (ROCALTROL) 0.5 mcg capsule Take 0.5 mcg by mouth. clotrimazole (LOTRIMIN) 1 % cream Apply to affected area. lidocaine (SALONPAS) 4 % patch Apply 1 Patch as directed. hydrALAZINE (APRESOLINE) 25 mg tablet Take 25 mg by mouth three times a day. metoprolol succinate ER (TOPROL XL) 50 mg 24 hr tablet Take 1 tablet by mouth once daily. Per Dr. Yulia Antoine, cardiology. oafbbjwinkd-ljzxhfylt-cpuihywt (TRELEGY ELLIPTA) 100-62.5-25 mcg inhalation powder Inhale 1 Puff as instructed once daily. docusate sodium (COLACE) 100 mg capsule Take 1 capsule by mouth as needed. melatonin 5 mg tablet Take 2 tablets by mouth. senna (SENOKOT) 8.6 mg tab Take 1 tablet by mouth as needed. Vit C-Vit L-Mhjtop-NbCr-Lutein (PRESERVISION LUTEIN) 226 mg-200 unit -5 mg-0.8 mg cap Take 1 capsule by mouth once daily. blood sugar diagnostic ([employer] CorporationTOUCH ULTRA TEST) test strip Test blood sugar(s) 2 times daily. 200 Strip 3 epoetin zari (PROCRIT,EPOGEN) 10,000 [...] Last 3 Encounter BP Readings: Date: BP: 08/19/2024 124/86 08/05/2024 132/80 07/06/2024 118/76 Wt: 117.9 kg (260 lb) BMI: 44.63 kg/(m2) LABS: Lab Results Component Value Date HBA1C 11.0 03/25/2024 HBA1C 7.0 09/23/2023 HBA1C 8.3 05/01/2023 HBA1C 6.5 05/19/2018 HBA1C 6.4 02/18/2012 HBA1C 7.8 09/21/2011 Glucose 171 03/22/2021 BUN 33 05/19/2018 Creatinine 2.02 03/22/2021 Sodium 140 03/22/2021 Potassium 4.4 03/22/2021 Chloride 108 03/22/2021 CO2 22 05/19/2018 Calcium 10 03/22/2021 Lab Results Component Value Date CHOL 121 05/19/2018 LDL 50 03 (more content not included)... [facility] 08-19-2024 Note HNO ID: [id number] Author: KACY MARY APRN.COCONUT COOKER Service: ? Author Type: Nurse Practitioner Type: Progress Notes Filed: 08/19/2024 09:52 Note Text: CC: Patient presents with: Shortness of Breath: When ambulating HPI Recording using ambient [employer] software for draft documentation of the visit was discussed with the patient/authorized registered representative; all questions welcomed and answered. Patient/authorized registered representative agreed to proceed Val is an 79-year-old female with a history of CHF, presenting for evaluation of weight gain, lower extremity edema, and dyspnea. Weight Gain and Lower Extremity Edema: - Home health nurse noted weight gain, crackles in the left lower lobe, and increased lower extremity edema. - Temporary increase in Lasix by Dr. Estrada provided minimal improvement. - Last recorded weight on 07/06 was 260 lbs; current weight is 268 lbs. Last home weight 267.5 on 08/17 Dyspnea: - Dyspnea on exertion, no change in baseline. - Uses supplemental oxygen at night and PRN during activities like walking to the car. - Police Guard is attempting to wean Val off oxygen. - Denies orthopnea, paroxysmal nocturnal dyspnea, chest pain, palpitations, fever, chills, cough, or wheezing. CHF: - Baseline Lasix dosage is 20 mg daily. - Scheduled to see ballistics teacher on the . Review of Systems Constitutional: Negative for fatigue. Neurological: Negative for dizziness, syncope and light-headedness. PAST MEDICAL HISTORY Diagnosis Date Acute bronchitis Acute gastritis without mention of hemorrhage Allergic rhinitis due to animal (cat) (dog) hair and dander Anemia 06/17/2009 Anemia of chronic disease Benign neoplasm of colon Chest pain, unspecified Chronic combined systolic and diastolic heart failure (HCC) 11/25/2022 CKD (chronic kidney disease) 06/17/2009 Cough DDD [...] EXTRACTION HX 2016 both eyes catacts removed, [facility] CHOLECYSTECTOMY 1970 COLONOSCOPY FLX DX W/COLLJ SPEC WHEN PFRMD 09/12/2012 Colonoscopy COLSC FLX W/RMVL OF TUMOR POLYP LESION SNARE TQ 07/11/2009 Polyp at 45cm - small CYSTOSCOPY, URETERAL STENT CHANGE/INSERTION EGD TRANSORAL BIOPSY SINGLE/MULTIPLE 07/11/2009 duodenitis, gastritis EGD TRANSORAL BIOPSY SINGLE/MULTIPLE 10/24/2010 ICD IMPLANT DUAL CHAMBER 10/03/2022 INSJ TUNNELED CTR VAD W/SUBQ PORT AGE 5 YR/> 12/23/2013 Left IJ LEFT AND RIGHT HEART CATH 09/09/2023 OPEN REPAIR OF ROTATOR CUFF ACUTE 2003 [...] OVARY 1970 Hysterectomy, DANIEL, Bilateral BSO ALLERGIES Rybelsus [Semaglutid (more content not included)... [facility] 08-19-2024 History of Present illness Narrative CC: Patient presents with: Shortness of Breath: When ambulating HPI Recording using ambient [employer] software for draft documentation of the visit was discussed with the patient/authorized registered representative; all questions welcomed and answered. Patient/authorized registered representative agreed to proceed Val is an 79-year-old female with a history of CHF, presenting for evaluation of weight gain, lower extremity edema, and dyspnea. Weight Gain and Lower Extremity Edema: - Home health nurse noted weight gain, crackles in the left lower lobe, and increased lower extremity edema. - Temporary increase in Lasix by Dr. Estrada provided minimal improvement. - Last recorded weight on 07/06 was 260 lbs; current weight is 268 lbs. Last home weight 267.5 on 08/17 Dyspnea: - Dyspnea on exertion, no change in baseline. - Uses supplemental oxygen at night and PRN during activities like walking to the car. - Police Guard is attempting to wean Val off oxygen. - Denies orthopnea, paroxysmal nocturnal dyspnea, chest pain, palpitations, fever, chills, cough, or wheezing. CHF: - Baseline Lasix dosage is 20 mg daily. - Scheduled to see ballistics teacher on the . Review of Systems Constitutional: Negative for fatigue. Neurological: Negative for dizziness, syncope and light-headedness. PAST MEDICAL HISTORY Diagnosis Date Acute bronchitis Acute gastritis without mention of hemorrhage Allergic rhinitis due to animal (cat) (dog) hair and dander Anemia 06/17/2009 Anemia of chronic disease Benign neoplasm of colon Chest pain, unspecified Chronic combined systolic and diastolic heart failure (HCC) 11/25/2022 CKD (chronic kidney disease) 06/17/2009 Cough DDD (degenerative disc disease), thoracolumbar 11/15/2016 Dr. Johana Kovacs, Orthopedics. Degenerative disc disease DIABETES TYPE II W RENAL MANIF-UNCONTRLLD 12/20/2006 Diagnosed in about 2000 per the pt (her early numbers in the A1C were in the 8-9% range) A1C 6% in 03-26, 5.8% in 07-24, 5.7% in 11-24 No per Yandel in 05-24: pt does have ARMD Stopped [...] EXTRACTION HX 2016 both eyes catacts removed, [facility] CHOLECYSTECTOMY 1970 COLONOSCOPY FLX DX W/COLLJ SPEC WHEN PFRMD 09/12/2012 Colonoscopy COLSC FLX W/RMVL OF TUMOR POLYP LESION SNARE TQ 07/11/2009 Polyp at 45cm - small CYSTOSCOPY, URETERAL STENT CHANGE/INSERTION EGD TRANSORAL BIOPSY SINGLE/MULTIPLE 07/11/2009 duodenitis, gastritis EGD TRANSORAL BIOPSY SINGLE/MULTIPLE 10/24/2010 ICD IMPLANT DUAL CHAMBER 10/03/2022 INSJ TUNNELED CTR VAD W/SUBQ PORT AGE 5 YR/> 12/23/2013 Left IJ LEFT & RIGHT HEART CATH 09/09/2023 OPEN REPAIR OF ROTATOR CUFF ACUTE 2003 [...] OVARY 1970 Hysterectomy, DANIEL, Bilateral BSO ALLERGIES Rybelsus [Semaglutide], Levaquin [Levofloxacin], Seasonal Allergies, and Sulfa (Sulfonamide Antibiotics) MEDICATIONS busPIRone (BUSPAR) 10 mg tablet Take 1 tablet by mouth two times a day. tirzepatide (MOUNJARO) 5 mg/0.5 mL pen injector Inject 5 mg subcutaneously one time a week. furosemide (LASIX) 20 mg tablet Take 1 tablet by mouth once daily. Take an extra 20 mg tablet daily as needed venlafaxine ER (EFFEXOR XR) 75 mg 24 hr capsule Take 1 capsule by mouth once daily. insulin glargine (LANTUS SOLOSTAR U-100 INSULIN) 100 unit/mL (3 mL) Inject 45 Units subcutaneously daily at bedtime. gabapentin (NEURONTIN) 300 mg capsule Take 1 capsule by mouth two times a day for 180 days. simvastatin (ZOCOR) 40 mg tablet Take 1 tablet by mouth daily at bedtime. For cholesterol. Insulin [place], Disposable, 29 gauge x 1/2 Use once daily as directed. Dx E11.29 empagliflozin (JARDIANCE) 10 mg tablet Take 1 tablet by mouth once daily. Prescribed by ballistics teacher calcitriol (ROCALTROL) 0.5 mcg capsule Take 0.5 mcg by mouth. clotrimazole (LOTRIMIN) 1 % cream Apply to affected area. lidocaine (SALONPAS) 4 % patch Apply 1 Patch as directed. hydrALAZINE (APRESOLINE) 25 mg tablet Take 25 mg by mouth three times a day. metoprolol succinate ER (TOPROL XL) 50 mg 24 hr tablet Take 1 tablet by mouth once daily. Per Dr. Yulia Antoine, cardiology. lqnpnngwhqe-asdglaxjz-qszuaoqd (TRELEGY ELLIPTA) 100-62.5-25 mcg inhalation powder Inhale 1 Puff as instructed once daily. docusate sodium (COLACE) 100 mg capsule Take 1 capsule by mouth as needed. melatonin 5 mg tablet Take 2 tablets by mouth. senna (SENOKOT) 8.6 mg tab Take 1 tablet by mouth as needed. Vit C-Vit T-Gceani-QePc-Lutein (PRESERVISION LUTEIN) 226 mg-200 unit -5 mg-0.8 mg cap Take 1 capsule by mouth once daily. blood sugar diagnostic ([employer] CorporationTOUCH ULTRA TEST) test strip Test blood sugar(s) 2 times daily. epoetin zari (PROCRIT,EPOGEN) 10,000 unit/mL injection Inject 10,000 Units subcutaneously q 4 WEEKS. 12,000 Units every two weeks. Lancets (FREESTYLE LANCETS) Misc Misc Test twice daily 250.02 FAMILY HISTORY Problem Relation Age of Onset Cancer Mother bone, Cancer Sister bone, Heart Sister pacemaker, valve repair Stroke Father Stroke Sister Stroke Brother age 75 Social History Tobacco Use Smoking status: Never Smokeless tobacco: Never Vaping Use Vaping status: Never Used Substance Use Topics Alcohol use: No Drug use: No BP 124/86 Pulse 88 Resp 14 Wt 121.6 kg (268 lb 1.3 oz) SpO2 94% BMI 46.02 kg/m Physical Exam Vitals reviewed. Constitutional: Appearance: Normal appearance. Cardiovascular: Rate and Rhythm: Normal rate and regular rhythm. Heart sounds: Normal heart sounds. No murmur heard. Pulmonary: Effort: Pulmonary effort is normal. Breath sounds: Normal breath sounds. No wheezing, rhonchi or rales. Skin: General: Skin is warm and dry. Neurological: Mental Status: She is alert. Assessment/Plan 1. Bilateral lower extremity edema (R60.0) 2. Chronic combined systolic and diastolic heart failure (HCC) (I50.42) - Edema and weight gain noted; no significant improvement with temporary increase in Lasix by Dr. Turpin. - No chest pain or orthopnea reported; lungs clear on auscultation. - Advised to monitor weight consistently every few days at the same time of day. - No changes to current medication regimen; continue Lasix 20 mg daily. - Follow-up with cardiology on the . - Instructed to report any significant or rapid worsening of symptoms. 3. Chronic respiratory failure with hypoxia (HCC) (J96.11) - Dyspnea on exertion; uses supplemental oxygen at night and prn. - Police Guard is attempting to wean off oxygen therapy. - No wheezing, fever, chills, or cough reported. - Pulse oximetry at 94%, consistent with baseline. - Continue current oxygen use as needed. I spent a total of 20 minutes on the date of the service which included preparing to see the patient, [id number] patient care, completing clinical documentation, performing a medically appropriate examination, and counseling and educating the patient/family/caregiver. Prescription instructions reviewed with patient as applicable. Potential red flag symptoms discussed with the patient. Reviewed appropriate action plan to take if red flag symptoms occur. Patient agreeable to treatment plan. Kacy Mary APRN.CNP documented in this encounter [facility] 08-19-2024 Instructions Kacy Mary APRN.JERRY - 08/19/2024 9:46 AM EDT - Continue taking your Lasix 20 mg once daily as before. - Weigh yourself every few days at the same time--first thing in the morning before eating or drinking--and keep a record of your weight. - Continue using your oxygen at night and as needed during activity. - Keep your cardiology appointment on the . - Contact our office if you experience any rapid or significant increase in leg swelling, sudden weight gain, worsening shortness of breath, chest pain, or any new concerning symptoms. documented in this encounter [facility] 08-17-2024 Telephone encounter Note Left message on identified vm for Shanel[facility], with below recommendation. Spoke to Val, given below recommendation, she verbalized understanding. Jesenia Glasgow LPN [facility] 08-17-2024 Miscellaneous Notes Left message on identified vm for Shanel[facility], with below recommendation. Spoke to Val, given below recommendation, she verbalized understanding. Jesenia Glasgow LPN Take furosemide 60 mg total (3 tablets) today and tomorrow. Appointment August 19 for reassessment as scheduled. Shanel from [facility] calling patient weight today is 267.5 pounds. The furosemide increase for 3 days did not do much. Today left posterior lower lung has crackles, patient is more short of breath with activity her SPO2 drops into the 70's but recovers after she rests. Nurse has been telling her to wear her oxygen with activity. Patient had phoned her son and has appt at 9 am Saturday at [facility] for lab work, scheduled appt with Kacy Mary ALLIANCES CONSULTANT at 940 am to follow up with weight gain and lung sounds. documented in this encounter [facility] 08-17-2024 Telephone encounter Note Take furosemide 60 mg total (3 tablets) today and tomorrow. Appointment August 19 for reassessment as scheduled. [facility] 08-17-2024 Telephone encounter Note Shanel from [facility] calling patient weight today is 267.5 pounds. The furosemide increase for 3 days did not do much. Today left posterior lower lung has crackles, patient is more short of breath with activity her SPO2 drops into the 70's but recovers after she rests. Nurse has been telling her to wear her oxygen with activity. Patient had phoned her son and has appt at 9 am Saturday at [facility] for lab work, scheduled appt with Kacy Mary NP at 940 am to follow up with weight gain and lung sounds. [facility] 08-13-2024 Telephone encounter Note Lata/Nurse notified, she read back order. Jesenia Glasgow LPN [facility] 08-13-2024 Miscellaneous Notes Lata/Nurse notified, she read back order. Jesenia Glasgow LPN Increase furosemide to 40 mg daily for 3 days, then resume 20 mg daily. Lata Nurse with [facility] calling to report patient has had an 8 pound weight gain in 1 week. Reports no increased swelling-remains with 1+ pitting lower extremity edema. No SOB or breathing difficulties. Reports her vitals are stable and lung sounds are clear. Pt sees Cardiology on 09/02/24. No call back needed to Lata unless PCP has advise/orders. Elizabeth Obando RN documented in this encounter [facility] 08-12-2024 Telephone encounter Note Increase furosemide to 40 mg daily for 3 days, then resume 20 mg daily. [facility] 08-12-2024 Telephone encounter Note Lata, Nurse with [facility] calling to report patient has had an 8 pound weight gain in 1 week. Reports no increased swelling-remains with 1+ pitting lower extremity edema. No SOB or breathing difficulties. Reports her vitals are stable and lung sounds are clear. Pt sees Cardiology on 09/02/24. No call back needed to Lata unless PCP has advise/orders. Elizabeth Obando RN [facility] 08-05-2024 Note HNO ID: [id number] Author: KACY MARY APRN.COCONUT COOKER Service: ? Author Type: Nurse Practitioner Type: Progress Notes Filed: 08/05/2024 11:55 Note Text: CC: Patient presents with: Follow Up: 4 weeks HPI Recording using [employer] software for draft documentation of the visit was discussed with the patient/authorized registered representative; all questions welcomed and answered. Patient/authorized registered representative agreed to proceed Val is a 79-year-old female, with a history of anxiety and DM, presenting for follow-up on anxiety management. She is accompanied by her son, who is providing additional history. Val was last seen for anxiety on 07/06/2024. She was initially prescribed buspirone 5 mg BID while admitted to a SNF for physical therapy 1 month prior. She reported that this dosage was ineffective in managing her anxiety. Her son notes that her anxiety exacerbates feelings of being a burden and wishing for . Val denies worsening depression but acknowledges that increased anxiety intensifies these feelings. She is also taking venlafaxine 75 mg daily, which was previously prescribed. The buspirone dosage was increased to 10 mg BID, and Val started this higher dose on the same day it was prescribed. She reports that the increased dosage has helped manage her anxiety. Her son also observes a noticeable improvement in her anxiety symptoms. Val was prescribed Mounjaro for DM management before sustaining a hip fracture. During her hospitalization and subsequent stay at a SNF, the medication was withheld due to concerns about her renal function. Since her discharge, her pharmacist has increased the Mounjaro dosage, but Val has not yet started the new dosage. Her son expresses concern about the potential impact of Mounjaro on her renal function and seeks guidance on whether to resume the medication. Review of Systems See HPI PAST MEDICAL [...] dry stage 10/09/2016 Obesity 11/09/2008 Sleep eval -: effic 20%, no REM, AHI 1.7, low [...] EXTRACTION HX 2015 both eyes catacts removed, [facility] CHOLECYSTECTOMY 1970 COLONOSCOPY FLX DX [...] 01/24/2018 ORIF R ankle fracture REVJ TOT KN (more content not included)... [facility] 07-29-2024 Telephone encounter Note Below response left on identified vm. Jesenia Glasgow LPN [facility] 07-29-2024 Miscellaneous Notes Below response left on identified vm. Jesenia Glasgow LPN Discontinue Xarelto 10 mg daily. Shanel from [facility] calls with Medication clarification on Xarelto. Patient has not been taking medication. Patient was given 26 tablets at discharge from [facility] on 05/25/2024. Medication was for DVT prophylactic. Shanel calling to see if medication can be discontinued from medication list. Please review and advise, Can leave a detailed message. Irene Paredes RN documented in this encounter [facility] 07-29-2024 Telephone encounter Note Discontinue Xarelto 10 mg daily. [facility] 07-29-2024 Telephone encounter Note Shanel from [facility] calls with Medication clarification on Xarelto. Patient has not been taking medication. Patient was given 26 tablets at discharge from [facility] on 05/25/2024. Medication was for DVT prophylactic. Shanel calling to see if medication can be discontinued from medication list. Please review and advise, Can leave a detailed message. Irene Paredes RN [facility] 07-20-2024 Telephone encounter Note Called and spoke with patient. States she received a letter from [facility] regarding cost/unable to get the weekly shots. States she discussed with her son about waiting to start her Mounjaro until after her next lab results. Reports the following BG readings in the mornin, 120, 130. Discussed Mounjaro was sent to [facility] as discussed last week and appears to have $0 copay. Patient states she still has 3 doses of Mounjaro 2.5mg at home. States she would like to wait to resume until after labs done this week and will contact PharmD after labs once deciding on resuming Mounjaro. Tessa Brock PharmD, JEFERSON Primary Care Clinical Wine And Spirits Clerk [facility] Work Phone: 07-20-2024 Miscellaneous Notes Called and spoke with patient. States she received a letter from [facility] regarding cost/unable to get the weekly shots. States she discussed with her son about waiting to start her Mounjaro until after her next lab results. Reports the following BG readings in the mornin, 120, 130. Discussed Mounjaro was sent to [facility] as discussed last week and appears to have $0 copay. Patient states she still has 3 doses of Mounjaro 2.5mg at home. States she would like to wait to resume until after labs done this week and will contact PharmD after labs once deciding on resuming Mounjaro. Tessa Brock PharmD, JEFERSON Primary Care Clinical Wine And Spirits Clerk Val is calling Tessa Brock RPh today with concern regarding Medication Problem (Ozempic) Patient has cost concerns about the medication and does not want it sent to the pharmacy. Please call her to discuss [phone] Patient has been identified by name and birthdate. Duration of symptoms: N/A Person calling: self Call patient at: at home [phone] (home) [phone] (cell) Was an appointment scheduled: No Closing statement: Marly Buck documented in this encounter [facility] 07-18-2024 Telephone encounter Note Val is calling Tessa Brock RPh today with concern regarding Medication Problem (Ozempic) Patient has cost concerns about the medication and does not want it sent to the pharmacy. Please call her to discuss [phone] Patient has been identified by name and birthdate. Duration of symptoms: N/A Person calling: self Call patient at: at home [phone] (home) [phone] (cell) Was an appointment scheduled: No Closing statement: Marly Buck [facility] Work Phone: 07-16-2024 History of Present illness Narrative Primary Care Pharmacy Visit CC (Reason for Consult): (E11.22, N18.4, Z79.4) Type 2 diabetes mellitus with stage 4 chronic kidney disease, with long-term current use of insulin (HCC) (primary encounter diagnosis) Goal(s): A1c <8% Last Collaborating Provider Visit: 07/06/24 with Kacy Mary CNP Val Erickson is a 79 year old female presenting for follow up visit telephone call. Patient consents to pharmacy collaborative practice agreement. Last Pharmacy Visit: 04/08/24 - Mounjaro restarted Interim Events: - Mounjaro stopped during recent hospitalization (04/2024) HPI: Reports doing okay She states the Mounjaro was stopped in the hospital, because of her kidney function while she was in the hospital and senior living and wasn't able to continue while in the hospital Reports she had 1 dose of the Mounjaro 2.5 mg before going into the hospital; has 3 doses remaining Current DM Medications: Lantus 45 units once daily Jardiance 10 mg once daily Previously Trialed DM Meds: Glimepiride - nocturnal hypoglycemia Metformin - reduced renal fxn Pioglitazone - swelling Trulicity - tolerated well; unable to procure d/t backorder - switched to Mounjaro Mounjaro - tolerated well; procurement issues (switched to Rybelsus); dc'd during recent hospitalization (04/2024) Rybelsus- intolerable indigestion GLYCEMIC CONTROL: Glucometer present at visit: No Hypoglycemia: No Reports BGs going up and down Today: >200 Yesterday: 139 Past medical history reviewed. ALLERGIES Allergen Reactions Rybelsus [Semagluti* Intolerance Uncontrollable indigestion Levaquin [Levofloxa* itching,diarrhea,dausea,burning skin Seasonal Allergies Other: See Comments Sinus Sulfa (Sulfonamide * rash and hives Current Outpatient Medications Medication Sig Dispense Refill furosemide (LASIX) 20 mg tablet Take 1 tablet by mouth once daily. Take an extra 20 mg tablet daily as needed 120 tablet 1 rivaroxaban (XARELTO) 10 mg tablet Take 10 mg by mouth once daily. venlafaxine ER (EFFEXOR XR) 75 mg 24 hr capsule Take 1 capsule by mouth once daily. 90 capsule 3 insulin glargine (LANTUS SOLOSTAR U-100 INSULIN) 100 unit/mL (3 mL) Inject 45 Units subcutaneously daily at bedtime. busPIRone (BUSPAR) 10 mg tablet Take 1 tablet by mouth two times a day. 60 tablet 1 gabapentin (NEURONTIN) 300 mg capsule Take 1 capsule by mouth two times a day for 180 days. 180 capsule 1 simvastatin (ZOCOR) 40 mg tablet Take 1 tablet by mouth daily at bedtime. For cholesterol. 90 tablet 3 Insulin [place], Disposable, 29 gauge x 1/2 Use once daily as directed. Dx E11.29 100 Each 4 empagliflozin (JARDIANCE) 10 mg tablet Take 1 tablet by mouth once daily. Prescribed by ballistics teacher calcitriol (ROCALTROL) 0.5 mcg capsule Take 0.5 mcg by mouth. clotrimazole (LOTRIMIN) 1 % cream Apply to affected area. lidocaine (SALONPAS) 4 % patch Apply 1 Patch as directed. hydrALAZINE (APRESOLINE) 25 mg tablet Take 25 mg by mouth three times a day. metoprolol succinate ER (TOPROL XL) 50 mg 24 hr tablet Take 1 tablet by mouth once daily. Per Dr. Yulia Antoine, cardiology. ujyqkmzvbfc-vdjuzgwsk-nenwubnn (TRELEGY ELLIPTA) 100-62.5-25 mcg inhalation powder Inhale 1 Puff as instructed once daily. docusate sodium (COLACE) 100 mg capsule Take 1 capsule by mouth as needed. melatonin 5 mg tablet Take 2 tablets by mouth. senna (SENOKOT) 8.6 mg tab Take 1 tablet by mouth as needed. Vit C-Vit P-Imyufb-GkRb-Lutein (PRESERVISION LUTEIN) 226 mg-200 unit -5 mg-0.8 mg cap Take 1 capsule by mouth once daily. blood sugar diagnostic (ONETOUCH ULTRA TEST) test strip Test blood sugar(s) 2 times daily. 200 Strip 3 epoetin zari (PROCRIT,EPOGEN) 10,000 [...] Product Type: Medicare / Medications affordable? Yes EXAM: There were no vitals taken for this visit. Last 3 Encounter BP Readings: Date: BP: 07/06/2024 118/76 03/25/2024 124/84 09/23/2023 118/78 Wt: 117.9 kg (260 lb) BMI: 44.63 kg/(m^2) LABS: Lab Results Component Value Date HBA1C 11.0 03/25/2024 HBA1C 7.0 09/23/2023 HBA1C 8.3 05/01/2023 HBA1C 6.5 05/19/2018 HBA1C 6.4 02/18/2012 HBA1C [...] 585.4, V58.67, ICD10: E11.22, N18.4, Z79.4 - Uncontrolled - Resume Mounjaro 2.5 mg once weekly to finish 3 doses of supply, then increase to Mounjaro 5 mg once weekly - Continue all other medications as currently prescribed - Statin prescribed - simvastatin - Blood glucose monitoring on a once daily schedule - Counseled on healthy diet and regular exercise - Discussed diabetic education issues of hypoglycemic/hyperglycemic symptoms and medication-specific side effects and monitoring - Follow up in 1 month, sooner should any other issues arise. Overdue Diabetes Health Maintenance: Health Maintenance - Diabetes Topic Date Due Diabetic Foot Exam 06/09/2024 HbA1C 06/23/2024 Dilated Retinal Exam 06/25/2024 Follow Up: Next PCP visit: 08/05/24 Next PharmD visit: 08/19/24 Tessa Brock, PharmD, BCACP Primary Care Clinical [employer] Clerk documented in this encounter [facility] 07-16-2024 Note HNO ID: [id number] Author: TESSA BROCK RPh Service: ? Author Type: Pharmacist Type: Progress Notes Filed: 07/16/2024 11:28 Note Text: Primary Care Pharmacy Visit CC (Reason for Consult): (E11.22, N18.4, Z79.4) Type 2 diabetes mellitus with stage 4 chronic kidney disease, with long-term current use of insulin (HCC) (primary encounter diagnosis) Goal(s): A1c <8% Last Collaborating Provider Visit: 07/06/24 with Kacy Mary CNP Val Erickson is a 79 year old female presenting for follow up visit telephone call. Patient consents to pharmacy collaborative practice agreement. Last Pharmacy Visit: 04/08/24 - Mounjaro restarted Interim Events: - Mounjaro stopped during recent hospitalization (04/2024) HPI: Reports doing okay She states the Mounjaro was stopped in the hospital, because of her kidney function while she was in the hospital and senior living and wasn't able to continue while in the hospital Reports she had 1 dose of the Mounjaro 2.5 mg before going into the hospital; has 3 doses remaining Current DM Medications: Lantus 45 units once daily Jardiance 10 mg once daily Previously Trialed DM Meds: Glimepiride - nocturnal hypoglycemia Metformin - reduced renal fxn Pioglitazone - swelling Trulicity - tolerated well; unable to procure d/t backorder - switched to Mounjaro Mounjaro - tolerated well; procurement issues (switched to Rybelsus); dc'd during recent hospitalization (04/2024) Rybelsus- intolerable indigestion GLYCEMIC CONTROL: Glucometer present at visit: No Hypoglycemia: No Reports BGs going up and down Today: >200 Yesterday: 139 Past medical history reviewed. ALLERGIES Allergen Reactions Rybelsus [Semagluti* Intolerance Uncontrollable indigestion Levaquin [Levofloxa* itching,diarrhea,dausea,burning skin Seasonal Allergies Other: See Comments Sinus Sulfa (Sulfonamide * rash and hives Current Outpatient Medications Medication Sig Dispense Refill furosemide (LASIX) 20 mg tablet Take 1 tablet by mouth once daily. Take an extra 20 mg tablet daily as needed 120 tablet 1 rivaroxaban (XARELTO) 10 mg tablet Take 10 mg by mouth once daily. venlafaxine ER (EFFEXOR XR) 75 mg 24 hr capsule Take 1 capsule by mouth once daily. 90 capsule 3 insulin glargine (LANTUS SOLOSTAR U-100 INSULIN) 100 unit/mL (3 mL) Inject 45 Units subcutaneously daily at bedtime. busPIRone (BUSPAR) 10 mg tablet Take 1 tablet by mouth two times a day. 60 tablet 1 gabapentin (NEURONTIN) 300 mg capsule Take 1 capsule by mouth two times a day for 180 days. 180 capsule 1 simvastatin (ZOCOR) 40 mg tablet Take 1 tablet by mouth daily at bedtime. For cholesterol. 90 tablet 3 Insulin [place], Disposable, 29 gauge x 1/2 Use once daily as directed. Dx E11.29 100 Each 4 empagliflozin (JARDIANCE) 10 mg tablet Take 1 tablet by mouth once daily. Prescribed by ballistics teacher calcitriol (ROCALTROL) 0.5 mcg capsule Take 0.5 mcg by mouth. clotrimazole (LOTRIMIN) 1 % cream Apply to affected area. lidocaine (SALONPAS) 4 % patch Apply 1 Patch as directed. hydrALAZINE (APRESOLINE) 25 mg tablet Take 25 mg by mouth three times a day. metoprolol succinate ER (TOPROL XL) 50 mg 24 hr tablet Take 1 tablet by mouth once daily. Per Dr. Yulia Antoine, cardiology. msfdqokymop-gsewatpta-dbcgvzem (TRELEGY ELLIPTA) 100-62.5-25 mcg inhalation powder Inhale 1 Puff as instructed once daily. docusate sodium (COLACE) 100 mg capsule Take 1 capsule by mouth as needed. melatonin 5 mg tablet Take 2 tablets by mouth. senna (SENOKOT) 8.6 mg tab Take 1 tablet by mouth as needed. Vit C-Vit X-Flpxbv-ElRh-Lutein (PRESERVISION LUTEIN) 226 mg-200 unit -5 mg-0.8 mg cap Take 1 capsule by mouth once daily. blood sugar diagnostic ([employer] CorporationTOUCH ULTRA TEST) test strip Test blood sugar(s) 2 times daily. 200 Strip 3 epoetin zari (PROCRIT,EPOGEN) 10,000 [...] Product Type: Medicare / Medications affordable? Yes EXAM: There were no vitals taken for this visit. Last 3 Encounter BP Readings: Date: BP: 07/06/2024 118/76 03/25/2024 124/84 09/23/2023 118/78 Wt: 117.9 kg (260 lb) BMI: 44.63 kg/(m2) LABS: Lab Results Component Value Date HBA1C 11.0 03/25/2024 HBA1C 7.0 09/23/2023 HBA1C 8.3 05/01/2023 HBA1C 6.5 05/19/2018 HBA1C 6.4 02/18/2012 HBA1C 7.8 09/21/2011 Glucose 171 03/22/2021 BUN 33 05/19/2018 Creatinine 2.02 03/22/2021 Sodium 140 03/22/2021 Potassium 4.4 03/22/2021 Chloride 108 03/22/2021 CO2 22 05/19/2018 Calcium 10 03/22/2021 Lab Results Component Value Date CHOL 121 05/19/2018 LDL 50 05/19/2018 HDL 44 05/19/2018 TG 135 05/19 (more content not included)... [facility] 07-06-2024 Note HNO ID: [id number] Author: KACY MARY APRN.JERRY Service: ? Author Type: Nurse Practitioner Type: Progress Notes Filed: 07/06/2024 08:45 Note Text: CC: Patient presents with: Hospital F/U HPI Recording using ambient [employer] software for draft documentation of the visit was discussed with the patient/authorized registered representative; all questions welcomed and answered. Patient/authorized registered representative agreed to proceed Val is a 79-year-old female, with a history of right intertrochanteric femur fracture, pneumonia, Klebsiella UTI, and anxiety, presenting for follow-up after discharge from a [facility] facility. Val was initially admitted to [facility] on 04/28/24 for a right intertrochanteric femur fracture, which was surgically repaired on 04/29/24. She was then transferred to a [facility] facility for rehabilitation. During her stay, she was found unresponsive on 05/25/24 and was readmitted to [facility], where she was diagnosed with a right mid-lung infiltrate and Klebsiella UTI. She improved on antibiotics and was discharged back to the [facility] facility. She was discharged home on 06/25/24 and is currently receiving PT, OT, and home health nursing. Since returning home, Val reports a fall in the shower on Saturday morning, resulting in mild pain in her knee. She attributes the fall to her legs giving out and slipping while holding onto the shower handle. Her son notes that she tends to let go of support when feeling unstable, leading to falls. Therapy is reportedly addressing these issues. Val and her son report significant anxiety, particularly related to fear of falling. This anxiety manifests as diaphoresis, dyspnea, and a sense of impending fall, even during short walks or transfers. She is currently on venlafaxine 75 mg daily for depression and buspirone 5mg BID for anxiety, which was started approximately one month ago. Her son notes that the anxiety exacerbates feelings of being a burden and wishing for . She denies worsening depression but acknowledges that increased anxiety intensifies these feelings. She denies cough, new dyspnea, fever, chills, chest pain, palpitations, or new urinary symptoms. She reports chronic lower extremity edema, which is more pronounced today. She is under the care of a plate embosser who is attempting to wean her off supplemental oxygen. She is no longer taking Mounjaro due to issues with pain medications and kidney function during her hospital stay. She is currently on Lantus 45 units and monitors her blood glucose levels, which typically range around 150-165 mg/dL, with occasional readings in the 200s. She reports variable sleep patterns, with some nights being restful and others disrupted by anxiety. Review of Systems See HPI PAST MEDICAL [...] PAST SURGICAL HISTORY Procedure Laterality Date APPENDECTOMY 1964 age 19 ARTHRP KNE CONDYLEANDPLATU MEDIALANDLAT COMPART (more content not included)... [facility] 07-06-2024 History of Present illness Narrative CC: Patient presents with: Hospital F/U HPI Recording using [employer] software for draft documentation of the visit was discussed with the patient/authorized registered representative; all questions welcomed and answered. Patient/authorized registered representative agreed to proceed Val is a 79-year-old female, with a history of right intertrochanteric femur fracture, pneumonia, Klebsiella UTI, and anxiety, presenting for follow-up after discharge from a [facility] facility. Val was initially admitted to [facility] on 04/28/24 for a right intertrochanteric femur fracture, which was surgically repaired on 04/29/24. She was then transferred to a [facility] facility for rehabilitation. During her stay, she was found unresponsive on 05/25/24 and was readmitted to [facility], where she was diagnosed with a right mid-lung infiltrate and Klebsiella UTI. She improved on antibiotics and was discharged back to the [facility] facility. She was discharged home on 06/25/24 and is currently receiving PT, OT, and home health nursing. Since returning home, Val reports a fall in the shower on Saturday morning, resulting in mild pain in her knee. She attributes the fall to her legs giving out and slipping while holding onto the shower handle. Her son notes that she tends to let go of support when feeling unstable, leading to falls. Therapy is reportedly addressing these issues. Val and her son report significant anxiety, particularly related to fear of falling. This anxiety manifests as diaphoresis, dyspnea, and a sense of impending fall, even during short walks or transfers. She is currently on venlafaxine 75 mg daily for depression and buspirone 5mg BID for anxiety, which was started approximately one month ago. Her son notes that the anxiety exacerbates feelings of being a burden and wishing for . She denies worsening depression but acknowledges that increased anxiety intensifies these feelings. She denies cough, new dyspnea, fever, chills, chest pain, palpitations, or new urinary symptoms. She reports chronic lower extremity edema, which is more pronounced today. She is under the care of a plate embosser who is attempting to wean her off supplemental oxygen. She is no longer taking Mounjaro due to issues with pain medications and kidney function during her hospital stay. She is currently on Lantus 45 units and monitors her blood glucose levels, which typically range around 150-165 mg/dL, with occasional readings in the 200s. She reports variable sleep patterns, with some nights being restful and others disrupted by anxiety. Review of Systems See HPI PAST MEDICAL [...] dry stage 10/09/2016 Obesity 11/09/2008 Sleep eval 5-09: effic 20%, no REM, AHI 1.7, low [...] EXTRACTION HX 2016 both eyes catacts removed, [facility] CHOLECYSTECTOMY 1970 COLONOSCOPY FLX DX W/COLLJ SPEC WHEN PFRMD 09/12/2012 Colonoscopy COLSC FLX W/RMVL OF TUMOR POLYP LESION SNARE TQ 07/11/09 Polyp at 45cm - small CYSTOSCOPY, URETERAL STENT CHANGE/INSERTION EGD TRANSORAL BIOPSY SINGLE/MULTIPLE 07/11/09 duodenitis, gastritis EGD TRANSORAL BIOPSY SINGLE/MULTIPLE 10/24/10 INSJ TUNNELED CTR VAD W/SUBQ PORT AGE 4 YR/> 12/23/13 Left IJ OPEN REPAIR OF ROTATOR CUFF ACUTE 2004 Rotator cuff repair, Right PAST SURGICAL HISTORY [...] OVARY 1970 Hysterectomy, DANIEL, Bilateral BSO ALLERGIES Rybelsus [Semaglutide], Levaquin [Levofloxacin], Seasonal Allergies, and Sulfa (Sulfonamide Antibiotics) MEDICATIONS rivaroxaban (XARELTO) 10 mg tablet Take 10 mg by mouth once daily. venlafaxine ER (EFFEXOR XR) 75 mg 24 hr capsule Take 1 capsule by mouth once daily. busPIRone (BUSPAR) 10 mg tablet Take 1 tablet by mouth two times a day. furosemide (LASIX) 20 mg tablet Take 1 tablet by mouth once daily. Take an extra 20 mg tablet daily as needed gabapentin (NEURONTIN) 300 mg capsule Take 1 capsule by mouth two times a day for 180 days. simvastatin (ZOCOR) 40 mg tablet Take 1 tablet by mouth daily at bedtime. For cholesterol. Insulin [place], Disposable, 29 gauge x 1/2 Use once daily as directed. Dx E11.29 empagliflozin (JARDIANCE) 10 mg tablet Take 1 tablet by mouth once daily. Prescribed by ballistics teacher calcitriol (ROCALTROL) 0.5 mcg capsule Take 0.5 mcg by mouth. clotrimazole (LOTRIMIN) 1 % cream Apply to affected area. lidocaine (SALONPAS) 4 % patch Apply 1 Patch as directed. hydrALAZINE (APRESOLINE) 25 mg tablet Take 25 mg by mouth three times a day. metoprolol succinate ER (TOPROL XL) 50 mg 24 hr tablet Take 1 tablet by mouth once daily. Per Dr. Yulia Antoine, cardiology. iroxsyhgpgl-oowxdpyxr-zyvqrlji (TRELEGY ELLIPTA) 100-62.5-25 mcg inhalation powder Inhale 1 Puff as instructed once daily. docusate sodium (COLACE) 100 mg capsule Take 1 capsule by mouth as needed. melatonin 5 mg tablet Take 2 tablets by mouth. senna (SENOKOT) 8.6 mg tab Take 1 tablet by mouth as needed. Vit C-Vit F-Ooamdq-BnYf-Lutein (PRESERVISION LUTEIN) 226 mg-200 unit -5 mg-0.8 mg cap Take 1 capsule by mouth once daily. blood sugar diagnostic (ONETOUCH ULTRA TEST) test strip Test blood sugar(s) 2 times daily. epoetin zrai (PROCRIT,EPOGEN) 10,000 unit/mL injection Inject 10,000 Units subcutaneously q 4 WEEKS. 12,000 Units every two weeks. Lancets (FREESTYLE LANCETS) Misc Misc Test twice daily 250.02 insulin glargine (LANTUS SOLOSTAR U-100 INSULIN) 100 unit/mL (3 mL) Inject 45 Units subcutaneously daily at bedtime. FAMILY HISTORY Problem Relation Age of Onset Cancer Mother bone, Cancer Sister bone, Heart Sister pacemaker, valve repair Stroke Father Stroke Sister Stroke Brother age 75 Social History Tobacco Use Smoking status: Never Smokeless tobacco: Never Vaping Use Vaping status: Never Used Substance Use Topics Alcohol use: No Drug use: No BP 118/76 Pulse 86 Wt 117.9 kg (260 lb) BMI 44.63 kg/m Physical Exam Vitals reviewed. Constitutional: Appearance: Normal appearance. Cardiovascular: Rate and Rhythm: Normal rate and regular rhythm. Heart sounds: Normal heart sounds. No murmur heard. Pulmonary: Effort: Pulmonary effort is normal. Breath sounds: Normal breath sounds. No wheezing, rhonchi or rales. Musculoskeletal: Right lower leg: Edema present. Left lower leg: Edema present. Skin: General: Skin is warm and dry. Neurological: Mental Status: She is alert. Psychiatric: Attention and Perception: Attention normal. Mood and Affect: Affect normal. Mood is anxious. Speech: Speech normal. Behavior: Behavior normal. Behavior is cooperative. Thought Content: Thought content normal. Thought content does not include homicidal or suicidal plan. Cognition and Memory: Cognition normal. Judgment: Judgment normal. Health maintenance reviewed with patient: HbA1C due on 06/23/2024 Diabetic Foot Exam due on 06/09/2024 Dilated Retinal Exam due on 06/25/2024 RSV Vaccine(1 - 1-dose 75+ series) due on 09/22/2024 LDL Cholesterol due on 09/08/2024 Anxiety Screening due on 09/22/2024 Covid-19 Vaccine( season) due on 09/22/2024 Hemoglobin/Hematocrit due on 06/10/2025 Serum Creatinine due on 06/17/2025 Annual PCP Team Chronic Disease Visit due on 07/06/2025 BP Controlled (<130/80) due on 07/06/2025 Bone Density Screening Completed Influenza Vaccine Completed Advance Directive Discussion Completed Shingrix Vaccine Completed Pneumococcal Vaccine: 50+ Completed DTaP,Tdap,Td Vaccine Discontinued Colorectal Cancer Screening Discontinued I have reviewed the patient s records from [facility] and [facility] including diagnostic testing performed, their discharge medications, and my assessment and plan with the patient and any family members present at today s visit. Assessment/Plan 1. Adjustment disorder with anxiety (F43.22) Depressive disorder (F32.A) Anxiety has increased since discharge from the [facility] facility, with episodes of sweating, dyspnea, and fear of falling. Currently on venlafaxine for depression and recently started on buspirone for anxiety management. - Increased buspirone to 10 mg BID; ordered 60 tablets with a refill to [facility]. - Continue venlafaxine as prescribed; refilled prescription to ensure availability in September. - Scheduled follow-up in one month to assess response to buspirone and anxiety levels. - Advised patient to call in two weeks if anxiety symptoms persist or worsen for potential dose adjustment. 2. Type 2 diabetes mellitus with stage 4 chronic kidney disease, with long-term current use of insulin ([facility]) (E11.22) Blood glucose levels fluctuating, with recent readings ranging from 126 to over 200 mg/dL. Currently on Lantus 45 units daily. Mounjaro was discontinued due to concerns about renal function and administration issues during hospitalization. - Continue Lantus 45 units daily. - Scheduled follow-up with clinical pharmacist Yoni to discuss potential resumption of Mounjaro. - Monitor blood glucose levels regularly. - follow-up with resident medical officer as instructed 3. Fracture of unspecified part of neck of right femur, initial encounter for closed fracture ([facility]) (S72.001A) Currently receiving PT, OT, and home health nursing at home. - Continue home PT and OT. 4. Frequent falls (R29.6) Recent fall in the shower due to instability and fear of falling. Home environment equipped with safety measures, but patient reports letting go of support handles during episodes of instability. - Continue home PT and OT to address balance and strength. - Educated patient and family on the importance of using safety equipment consistently. - Monitor for any further falls or injuries. 5. Urinary tract infection without hematuria, site unspecified (N39.0) Previous UTI treated during hospitalization with significant improvement. No current symptoms of dysuria, urgency, or frequency reported. - Monitor for any signs of recurrent UTI. - Encourage adequate hydration. 6. Pneumonia due to infectious organism, unspecified laterality, unspecified part of lung (J18.9) Previous pneumonia treated during hospitalization with significant improvement. No current cough or new shortness of breath reported. - Monitor for any signs of recurrent respiratory infection. - Continue using supplemental oxygen as needed. Prescription instructions reviewed with patient as applicable. Potential red flag symptoms discussed with the patient. Reviewed appropriate action plan to take if red flag symptoms occur. Patient agreeable to treatment plan. Kacy Mary APRN.[employer] Medical Decision Making: Problems: Moderate: 1+ chronic illnesses with change, New problem with uncertain prognosis and Acute complicated injury Data: Unique test result(s) reviewed: 3+ Risk: Low: Low risk from testing/treatment Moderate: Drug management Medical Decision Making Level: 4 - Moderate documented in this encounter [facility] 07-06-2024 Instructions Kacy Mary APRN.CNP - 07/06/2024 8:30 AM EDT We discussed your recent health concerns and follow-up care after your discharge from the [facility] facility: - Anxiety and Depression: - I increased your Buspirone (BuSpar) to 10 mg twice daily to help manage your anxiety. This prescription has been sent to [facility]. If you have any remaining 5 mg tablets, you can take two tablets twice daily until they are finished. - Continue taking Venlafaxine (Effexor) as prescribed. You have enough until September, but I sent a refill to your pharmacy so it will be available when needed. - If your anxiety does not improve in two weeks, please call our office to discuss increasing the dose of Buspirone further. - Your anxiety may be contributing to your physical symptoms, such as sweating, shortness of breath, and feeling panicked. Please let us know if these symptoms worsen or do not improve. - Diabetes Management: - Continue taking Lantus 45 units as prescribed and monitor your blood sugar regularly. Your recent readings have been variable, with some higher levels likely related to anxiety. - I will schedule a follow-up with your clinical pharmacist, Yoni, to discuss your diabetes management and whether to restart Mounjaro. This can be a phone visit. - Fall Prevention and Physical Therapy: - You mentioned a recent fall in the shower. Please continue working with your physical and occupational therapists to address balance and strength issues. They can also help with strategies to prevent falls. - Ensure you use the safety equipment in your shower, such as grab bars and a shower seat, to reduce the risk of falling. - Your son is arranging for a chair with arms for your kitchen, which will provide additional support when sitting and standing. - Follow-Up Appointments: - I would like to see you in one month to assess how you are doing with the increased Buspirone dose and your anxiety management. - If you feel the Buspirone is not helping after two weeks, please call our office to discuss increasing the dose sooner. - I will also schedule a follow-up with your clinical pharmacist to review your diabetes management and discuss restarting Mounjaro. Please continue monitoring your symptoms and let us know if you have any concerns before your next visit. documented in this encounter [facility] 06-29-2024 Telephone encounter Note Ezra with [facility] PT calls to report he saw pt today. PT will see pt twice a week x 3 weeks then once a week x 4 weeks for safety and mobility. Carole Lundy LPN [facility] 06-29-2024 Miscellaneous Notes Ezra with [facility] PT calls to report he saw pt today. PT will see pt twice a week x 3 weeks then once a week x 4 weeks for safety and mobility. Carole Lundy LPN documented in this encounter [facility] 06-26-2024 Telephone encounter Note Fyi to pcp [facility] 06-26-2024 Miscellaneous Notes Fyi to pcp Patient lili Dye returned call and aware follow up appt needs scheduled. He said has taken mother home for a visit earlier this week and did not go very well. The plan is for her to be discharged on 06/25 and if works for her to be at home, he will call Saturday to schedule follow up. If things do not work out he is in contact with child protective services social worker at the facility for plan B if needed. Called Val, vm is not set up. Called Rd/son, left vm to call & speak to nurse. Jesenia Glasgow LPN Renae - [facility]- returned call and informed her, pcp is agreeable to follow for [facility]. Tried calling [facility] back but not open yet. Johana Cerna MA I will follow. Please schedule post senior living follow up. Discharge summary/medication list please. Chantell with [facility] calling. Patient will be discharging to home from [facility] on 06/25/24. Pt has orders for Home Health Nursing, PT and OT. Asking if provider will sign and follow for these orders? Call Chantell at [phone]. Elizabeth Obando RN documented in this encounter [facility] 06-23-2024 Telephone encounter Note Patient son Rd returned call and aware follow up appt needs scheduled. He said has taken mother home for a visit earlier this week and did not go very well. The plan is for her to be discharged on 06/25 and if works for her to be at home, he will call Saturday to schedule follow up. If things do not work out he is in contact with child protective services social worker at the facility for plan B if needed. [facility] 06-23-2024 Telephone encounter Note Called Val, vm is not set up. Called Rd/son, left vm to call & speak to nurse. Jesenia Glasgow LPN [facility] 06-23-2024 Telephone encounter Note Renae - [facility]- returned call and informed her, pcp is agreeable to follow for [facility]. [facility] 06-23-2024 Telephone encounter Note Tried calling [facility] back but not open yet. Johana Cerna MA [facility] 06-22-2024 Telephone encounter Note I will follow. Please schedule post senior living follow up. Discharge summary/medication list please. [facility] 06-22-2024 Telephone encounter Note Chantell with [facility] calling. Patient will be discharging to home from [facility] on 06/25/24. Pt has orders for Home Health Nursing, PT and OT. Asking if provider will sign and follow for these orders? Call Chantell at [phone]. Elizabeth Obando RN [facility] 05-25-2024 Note [facility] 05-21-2024 Note [facility] 05-06-2024 Telephone encounter Note Called patient for scheduled pharmacy phone follow up; unable to reach after multiple attempts. Left VM with phone number to reschedule appointment. Tessa Brock PharmD, JEFERSON Primary Care Clinical Wine And Spirits Clerk [facility] Work Phone: 05-06-2024 Miscellaneous Notes Called patient for scheduled pharmacy phone follow up; unable to reach after multiple attempts. Left VM with phone number to reschedule appointment. Tessa Brock PharmD, JEFERSON Primary Care Clinical Wine And Spirits Clerk documented in this encounter [facility] 05-02-2024 Note [facility] 05-02-2024 Note [facility] 04-13-2024 Telephone encounter Note Called and spoke with patient. Discussed option of [facility] for Mounjaro prescription; patient agreeable. Sent Rx to [facility] pharmacy Patient's request for medication is as follows: Requested Prescriptions Signed Prescriptions Disp Refills tirzepatide (MOUNJARO) 2.5 mg/0.5 mL pen injector 2 mL 1 Sig: Inject 2.5 mg subcutaneously one time a week. Authorizing Provider: KACY MARY Ordering User: TESSA BROCK PharmD, JEFERSON Primary Care Clinical Wine And Spirits Clerk [facility] Work Phone: 04-13-2024 Miscellaneous Notes Called and spoke with patient. Discussed option of [facility] for Mounjaro prescription; patient agreeable. Sent Rx to [facility] Patient's request for medication is as follows: Requested Prescriptions Signed Prescriptions Disp Refills tirzepatide (MOUNJARO) 2.5 mg/0.5 mL pen injector 2 mL 1 Sig: Inject 2.5 mg subcutaneously one time a week. Authorizing Provider: KACY MARY Ordering User: TESSA BROCK, PharmD, BCACP Primary Care Clinical Wine And Spirits Clerk Pt calls to report that [facility] does not have Mounjoro so she cannot get it there. [facility] also does not have it. Pt does not drive and it is hard for her to get someone to pick up attendant prescriptions. Pt is asking where else she could get Mounjoro or what else can she do. Please review and advise. Carole Lundy LPN documented in this encounter [facility] 04-13-2024 Telephone encounter Note Pt calls to report that [facility] does not have Mounjoro so she cannot get it there. [facility] also does not have it. Pt does not drive and it is hard for her to get someone to pick up attendant prescriptions. Pt is asking where else she could get Mounjoro or what else can she do. Please review and advise. Carole Lundy LPN [facility] 04-08-2024 Telephone encounter Note Rx sent to [facility] Patient's request for medication is as follows: Requested Prescriptions Signed Prescriptions Disp Refills tirzepatide (MOUNJARO) 2.5 mg/0.5 mL pen injector 2 mL 1 Sig: Inject 2.5 mg subcutaneously one time a week. Authorizing Provider: KACY MARY Ordering User: PANECCASITESSA Gooden PharmD, JEFERSON Primary Care Clinical Wine And Spirits Clerk [facility] Work Phone: 04-08-2024 Miscellaneous Notes Rx sent to [facility]. Patient's request for medication is as follows: Requested Prescriptions Signed Prescriptions Disp Refills tirzepatide (MOUNJARO) 2.5 mg/0.5 mL pen injector 2 mL 1 Sig: Inject 2.5 mg subcutaneously one time a week. Authorizing Provider: KACY MARY Ordering User: TESSA BROCK PharmD, JEFERSON Primary Care Clinical Wine And Spirits Clerk Patient calling in and states her pharmacy ([facility]) is unable to get her Mounjaro for her, as ordered by Reese Brock RPh. Patient requesting script be sent to [facility], please. Thank you. Elizabeth Obando RN documented in this encounter [facility] 04-08-2024 Telephone encounter Note Patient calling in and states her pharmacy ([facility]) is unable to get her Mounjaro for her, as ordered by Reese Brock RPh. Patient requesting script be sent to [facility], please. Thank you. Elizabeth Obando RN [facility] 04-08-2024 Telephone encounter Note Called and spoke with patient for scheduled phone visit Tessa Brock PharmD, BCACP Primary Care Clinical Wine And Spirits Clerk [facility] Work Phone: 04-08-2024 Miscellaneous Notes Called and spoke with patient for scheduled phone visit Tessa Brock, Janessa, BCACP Primary Care Clinical Wine And Spirits Clerk Patient was having trouble answering telephone call for appt. Requests call back at [phone]. Viktoria Johnston RN documented in this encounter [facility] 04-08-2024 Telephone encounter Note Patient was having trouble answering telephone call for appt. Requests call back at [phone]. Viktoria Johnston RN [facility] 04-08-2024 History of Present illness Narrative Primary Care Pharmacy Visit CC (Reason for Consult): (E11.22, N18.4, Z79.4) Type 2 diabetes mellitus with stage 4 chronic kidney disease, with long-term current use of insulin (HCC) (primary encounter diagnosis) Goal(s): A1c <8% Last Collaborating Provider Visit: 03/25/24 with Kacy Mary CNP [facility] Heidi Erickson is a 79 year old female presenting for follow up visit telephone call. Patient consents to pharmacy collaborative practice agreement. Last Pharmacy Visit: 02/28/24 Interim Events: - 03/25/24 A1c results - worsening to 11% HPI: Reports doing well States BGs have been high lately Trying to get back on track after the holidays Current DM Medications: Lantus 60 units once daily Jardiance 10 mg once daily Previously Trialed DM Meds: Glimepiride - nocturnal hypoglycemia Metformin - reduced renal fxn Pioglitazone - swelling Trulicity - tolerated well; unable to procure d/t backorder - switched to Mounjaro Mounjaro - tolerated well; procurement issues (switched to Rybelsus) Rybelsus- intolerable indigestion Diet Denies any recent changes other than during the holidays GLYCEMIC CONTROL: Glucometer present at visit: No Hypoglycemia: No BGs in the 200s Past medical history reviewed. ALLERGIES Allergen Reactions Rybelsus [Semagluti* Intolerance Uncontrollable indigestion Levaquin [Levofloxa* itching,diarrhea,dausea,burning skin Seasonal Allergies Other: See Comments Sinus Sulfa (Sulfonamide * rash and hives Current Outpatient Medications Medication Sig Dispense Refill furosemide (LASIX) 20 mg tablet Take 1 tablet by mouth once daily. Take an extra 20 mg tablet daily as needed 120 tablet 1 gabapentin (NEURONTIN) 300 mg capsule Take 1 capsule by mouth two times a day for 180 days. 180 capsule 1 simvastatin (ZOCOR) 40 mg tablet Take 1 tablet by mouth daily at bedtime. For cholesterol. 90 tablet 3 insulin glargine (LANTUS SOLOSTAR U-100 INSULIN) 100 unit/mL (3 mL) Inject 60 Units subcutaneously daily at bedtime. 60 mL 3 Insulin [place], Disposable, 29 gauge x 1/2 Use once daily as directed. Dx E11.29 100 Each 4 venlafaxine ER (EFFEXOR XR) 75 mg 24 hr capsule Take 1 capsule by mouth once daily. 90 capsule 3 empagliflozin (JARDIANCE) 10 mg tablet Take 1 tablet by mouth once daily. Prescribed by ballistics teacher calcitriol (ROCALTROL) 0.5 mcg capsule Take 0.5 mcg by mouth. clotrimazole (LOTRIMIN) 1 % cream Apply to affected area. lidocaine (SALONPAS) 4 % patch Apply 1 Patch as directed. hydrALAZINE (APRESOLINE) 25 mg tablet Take 25 mg by mouth three times a day. metoprolol succinate ER (TOPROL XL) 50 mg 24 hr tablet Take 1 tablet by mouth once daily. Per Dr. Yulia Antoine, cardiology. opkyjkcpiuf-doutcczdt-drzxspfm (TRELEGY ELLIPTA) 100-62.5-25 mcg inhalation powder Inhale 1 Puff as instructed once daily. docusate sodium (COLACE) 100 mg capsule Take 1 capsule by mouth as needed. melatonin 5 mg tablet Take 2 tablets by mouth. senna (SENOKOT) 8.6 mg tab Take 1 tablet by mouth as needed. Vit C-Vit L-Qwvlbp-AwIv-Lutein (PRESERVISION LUTEIN) 226 mg-200 unit -5 mg-0.8 [...] Last 3 Encounter BP Readings: Date: BP: 03/25/2024 124/84 09/23/2023 118/78 05/01/2023 118/68 Wt: 130 kg (286 lb 9.6 oz) BMI: 49.19 kg/(m^2) LABS: Lab Results Component Value Date HBA1C 11.0 03/25/2024 HBA1C 7.0 09/23/2023 HBA1C 8.3 05/01/2023 HBA1C 6.5 05/19/2018 HBA1C 6.4 02/18/2012 HBA1C [...] 585.4, V58.67, ICD10: E11.22, N18.4, Z79.4 - Uncontrolled - Start Mounjaro 2.5 mg once weekly - Continue all other medications as currently prescribed - Statin prescribed - simvastatin - Blood glucose monitoring on a once daily schedule - Counseled on healthy diet and regular exercise - Discussed diabetic education issues of hypoglycemic/hyperglycemic symptoms and medication-specific side effects and monitoring - Follow up in 1 month, sooner should any other issues arise. Follow Up: Next PCP visit: 09/23/24 Next PharmD visit: 05/06/24 Tessa Brock, PharmD, BCACP Primary Care Clinical Wine And Spirits Clerk documented in this encounter [facility] 04-08-2024 Note HNO ID: [id number] Author: TESSA BROCK RPh Service: ? Author Type: Pharmacist Type: Progress Notes Filed: 04/08/2024 14:25 Note Text: Primary Care Pharmacy Visit CC (Reason for Consult): (E11.22, N18.4, Z79.4) Type 2 diabetes mellitus with stage 4 chronic kidney disease, with long-term current use of insulin (HCC) (primary encounter diagnosis) Goal(s): A1c <8% Last Collaborating Provider Visit: 03/25/24 with Kacy Mary CNP Val Erickson is a 79 year old female presenting for follow up visit telephone call. Patient consents to pharmacy collaborative practice agreement. Last Pharmacy Visit: 02/28/24 Interim Events: - 03/25/24 A1c results - worsening to 11% HPI: Reports doing well States BGs have been high lately Trying to get back on track after the holidays Current DM Medications: Lantus 60 units once daily Jardiance 10 mg once daily Previously Trialed DM Meds: Glimepiride - nocturnal hypoglycemia Metformin - reduced renal fxn Pioglitazone - swelling Trulicity - tolerated well; unable to procure d/t backorder - switched to Mounjaro Mounjaro - tolerated well; procurement issues (switched to Rybelsus) Rybelsus- intolerable indigestion Diet Denies any recent changes other than during the holidays GLYCEMIC CONTROL: Glucometer present at visit: No Hypoglycemia: No BGs in the 200s Past medical history reviewed. ALLERGIES Allergen Reactions Rybelsus [Semagluti* Intolerance Uncontrollable indigestion Levaquin [Levofloxa* itching,diarrhea,dausea,burning skin Seasonal Allergies Other: See Comments Sinus Sulfa (Sulfonamide * rash and hives Current Outpatient Medications Medication Sig Dispense Refill furosemide (LASIX) 20 mg tablet Take 1 tablet by mouth once daily. Take an extra 20 mg tablet daily as needed 120 tablet 1 gabapentin (NEURONTIN) 300 mg capsule Take 1 capsule by mouth two times a day for 180 days. 180 capsule 1 simvastatin (ZOCOR) 40 mg tablet Take 1 tablet by mouth daily at bedtime. For cholesterol. 90 tablet 3 insulin glargine (LANTUS SOLOSTAR U-100 INSULIN) 100 unit/mL (3 mL) Inject 60 Units subcutaneously daily at bedtime. 60 mL 3 Insulin [place], Disposable, 29 gauge x 1/2 Use once daily as directed. Dx E11.29 100 Each 4 venlafaxine ER (EFFEXOR XR) 75 mg 24 hr capsule Take 1 capsule by mouth once daily. 90 capsule 3 empagliflozin (JARDIANCE) 10 mg tablet Take 1 tablet by mouth once daily. Prescribed by ballistics teacher calcitriol (ROCALTROL) 0.5 mcg capsule Take 0.5 mcg by mouth. clotrimazole (LOTRIMIN) 1 % cream Apply to affected area. lidocaine (SALONPAS) 4 % patch Apply 1 Patch as directed. hydrALAZINE (APRESOLINE) 25 mg tablet Take 25 mg by mouth three times a day. metoprolol succinate ER (TOPROL XL) 50 mg 24 hr tablet Take 1 tablet by mouth once daily. Per Dr. Yulia Antoine, cardiology. ohywhawnxft-nwojalhdf-nltjfpgi (TRELEGY ELLIPTA) 100-62.5-25 mcg inhalation powder Inhale 1 Puff as instructed once daily. docusate sodium (COLACE) 100 mg capsule Take 1 capsule by mouth as needed. melatonin 5 mg tablet Take 2 tablets by mouth. senna (SENOKOT) 8.6 mg tab Take 1 tablet by mouth as needed. Vit C-Vit K-Bhculd-HvCp-Lutein (PRESERVISION LUTEIN) 226 mg-200 unit -5 mg-0.8 mg cap Take 1 capsule by mouth once daily. COMPOUNDED PRESCRIPTION Take 1 tablet by mouth twice daily. Plexus Bio-5 (Probiotic) blood sugar diagnostic ([employer] CorporationTOUCH ULTRA TEST) test strip Test blood sugar(s) [...] Last 3 Encounter BP Readings: Date: BP: 03/25/2024 124/84 09/23/2023 118/78 05/01/2023 118/68 Wt: 130 kg (286 lb 9.6 oz) BMI: 49.19 kg/(m2) LABS: Lab Results Component Value Date HBA1C 11.0 03/25/2024 HBA1C 7.0 09/23/2023 HBA1C 8.3 05/01/2023 HBA1C 6.5 05/19/2018 HBA1C 6.4 02/18/2012 HBA1C [...] 05/19/2018 30 ASSESSMENT/PLAN: 1. Type 2 diabetes me (more content not included)... [facility] 03-30-2024 Telephone encounter Note PATIENT NOTIFIED OF SAME. [facility] 03-30-2024 Miscellaneous Notes PATIENT NOTIFIED OF SAME. Please let the patient know the urine culture was positive for UTI. Start treatment with Keflex and follow-up in 2-3 days if there is no improvement Kacy Mary APRN.[employer] documented in this encounter [facility] 03-30-2024 Telephone encounter Note Please let the patient know the urine culture was positive for UTI. Start treatment with Keflex and follow-up in 2-3 days if there is no improvement Kacy Mary APRN.[employer]OOKER [facility] 03-25-2024 Note Addended by: KACY GRAMAJO on: 03/25/2024 05:05 PM Modules accepted: Orders [facility] 03-25-2024 Miscellaneous Notes Addended by: KACY MARY on: 03/25/2024 05:05 PM Modules accepted: Orders documented in this encounter [facility] 03-25-2024 Note HNO ID: [id number] Author: KACY MARY APRN.[employer] COOKER Service: ? Author Type: Nurse Practitioner Type: Progress Notes Filed: 03/25/2024 13:05 Note Text: CC: Patient presents with: Follow Up: 6 months HPI Val Erickson is a 79 year old female who presents today for above. She is taking medications as prescribed, denies side effects. Her home blood sugar readings have not been well controlled which she attributes to poor eating habits during the holidays. She has been experiencing urinary frequency intermittently x 2 weeks. Associated with urgency. Denies back or abdominal pain, dysuria, fever, chills, hematuria. She has been taking AZO with temporary relief. She is following up with specialists as directed including nephrology, cardiology, pulmonology and pharm D. Review of Systems Constitutional: Negative for unexpected weight change. Respiratory: Positive for shortness of breath (chronic, baseline). Negative for cough and wheezing. Wears continuous oxygen at night only Cardiovascular: Positive for leg swelling (chronic, baseline). Negative for chest pain and palpitations. Neurological: Negative for dizziness, syncope, weakness, light-headedness and headaches. PAST MEDICAL HISTORY Diagnosis Date Acute bronchitis [...] EXTRACTION HX 2016 both eyes catacts removed, [facility] CHOLECYSTECTOMY 1970 COLONOSCOPY FLX DX [...] REVJ TOT KNEE ARTHRP FEMANDENTIRE TIBIAL COMPONE 2008 Knee replacement, revision, left TONSILLECTOMY PRIMARY/SECONDARY Tonsillectomy TOTAL ABDOMINAL HYSTERECT W/WO RMVL TUBE OVARY 1970 Hysterectomy, DANIEL, Bilateral BSO ALLERGIES Rybelsus [Semaglutide], Levaquin [Levofloxacin], Seasonal Allergies, and Sulfa (Sulfonamide Antibiotics) MEDICATIONS insulin glargine (LANTUS SOLOSTAR U-100 INSULIN) 100 unit/mL (3 mL) Inject 60 Units subcutaneously daily at bedtime. furosemide (LASIX) 20 mg tablet Take 1 tablet by mouth once daily. Take an extra 20 mg tablet daily as needed Insulin [place], Disposable, 29 gauge x 1/2 Use once daily as directed. Dx E11.29 venlafaxine (more content not included)... [facility] 03-25-2024 History of Present illness Narrative CC: Patient presents with: Follow Up: 6 months HPI Val Erickson is a 79 year old female who presents today for above. She is taking medications as prescribed, denies side effects. Her home blood sugar readings have not been well controlled which she attributes to poor eating habits during the holidays. She has been experiencing urinary frequency intermittently x 2 weeks. Associated with urgency. Denies back or abdominal pain, dysuria, fever, chills, hematuria. She has been taking AZO with temporary relief. She is following up with specialists as directed including nephrology, cardiology, pulmonology and pharm D. Review of Systems Constitutional: Negative for unexpected weight change. Respiratory: Positive for shortness of breath (chronic, baseline). Negative for cough and wheezing. Wears continuous oxygen at night only Cardiovascular: Positive for leg swelling (chronic, baseline). Negative for chest pain and palpitations. Neurological: Negative for dizziness, syncope, weakness, light-headedness and headaches. PAST MEDICAL HISTORY Diagnosis Date Acute bronchitis [...] EXTRACTION HX 2016 both eyes catacts removed, [facility] CHOLECYSTECTOMY 1970 COLONOSCOPY FLX DX [...] replacement, revision, left TONSILLECTOMY PRIMARY/SECONDARY <AGE 11 1969 Tonsillectomy TOTAL ABDOMINAL HYSTERECT W/WO RMVL TUBE OVARY 1969 Hysterectomy, DANIEL, Bilateral BSO ALLERGIES Rybelsus [Semaglutide], Levaquin [Levofloxacin], Seasonal Allergies, and Sulfa (Sulfonamide Antibiotics) MEDICATIONS insulin glargine (LANTUS SOLOSTAR U-100 INSULIN) 100 unit/mL (3 mL) Inject 60 Units subcutaneously daily at bedtime. furosemide (LASIX) 20 mg tablet Take 1 tablet by mouth once daily. Take an extra 20 mg tablet daily as needed Insulin [place], Disposable, 29 gauge x 1/2 Use once daily as directed. Dx E11.29 venlafaxine ER (EFFEXOR XR) 75 mg 24 hr capsule Take 1 capsule by mouth once daily. empagliflozin (JARDIANCE) 10 mg tablet Take 1 tablet by mouth once daily. Prescribed by ballistics teacher calcitriol (ROCALTROL) 0.5 mcg capsule Take 0.5 mcg by mouth. clotrimazole (LOTRIMIN) 1 % cream Apply to affected area. lidocaine (SALONPAS) 4 % patch Apply 1 Patch as directed. simvastatin (ZOCOR) 40 mg tablet Take 1 tablet by mouth daily at bedtime. For cholesterol. hydrALAZINE (APRESOLINE) 25 mg tablet Take 25 mg by mouth three times a day. metoprolol succinate ER (TOPROL XL) 50 mg 24 hr tablet Take 1 tablet by mouth once daily. Per Dr. Yulia Antoine, cardiology. rklehdvttoc-kmauyoymo-tovfpxzu (TRELEGY ELLIPTA) 100-62.5-25 mcg inhalation powder Inhale 1 Puff as instructed once daily. docusate sodium (COLACE) 100 mg capsule Take 1 capsule by mouth as needed. melatonin 5 mg tablet Take 2 tablets by mouth. senna (SENOKOT) 8.6 mg tab Take 1 tablet by mouth as needed. Vit C-Vit S-Aewsvl-DmFw-Lutein (PRESERVISION LUTEIN) 226 mg-200 unit -5 mg-0.8 mg cap Take 1 capsule by mouth once daily. COMPOUNDED PRESCRIPTION Take 1 tablet by mouth twice daily. Plexus Bio-5 (Probiotic) blood sugar diagnostic ([employer] CorporationTOUCH ULTRA TEST) test strip Test blood sugar(s) 2 times daily. (Patient taking differently: 1 Each. Test blood sugar(s) 2 times daily.) epoetin zari (PROCRIT,EPOGEN) 10,000 unit/mL injection Inject 10,000 Units subcutaneously q 4 WEEKS. 12,000 Units every two weeks. Lancets (FREESTYLE LANCETS) Misc Misc Test twice daily 250.02 gabapentin (NEURONTIN) 300 mg capsule Take 1 capsule by mouth two times a day for 180 days. FAMILY HISTORY Problem Relation Age of Onset Cancer Mother bone, Cancer Sister bone, Heart Sister pacemaker, valve repair Stroke Father Stroke Sister Stroke Brother age 75 Social History Tobacco Use Smoking status: Never Smokeless tobacco: Never Vaping Use Vaping status: Never Used Substance Use Topics Alcohol use: No Drug use: No BP 124/84 Pulse 95 Resp 16 Wt 130 kg (286 lb 9.6 oz) SpO2 98% BMI 49.19 kg/m Physical Exam Vitals reviewed. Constitutional: Appearance: She is obese. Cardiovascular: Rate and Rhythm: Normal rate and regular rhythm. Heart sounds: Normal heart sounds. Pulmonary: Effort: Pulmonary effort is normal. Breath sounds: Normal breath sounds. No wheezing, rhonchi or rales. Abdominal: Tenderness: There is no abdominal tenderness. There is no right CVA tenderness or left CVA tenderness. Skin: General: Skin is warm and dry. Neurological: Mental Status: She is alert. Health maintenance reviewed with patient: BP Controlled (<130/80) due on 09/21/2020 RSV Vaccine(1 - 1-dose 75+ series) due on 09/22/2024 Diabetic Foot Exam due on 06/09/2024 HbA1C due on 06/23/2024 Dilated Retinal Exam due on 06/25/2024 LDL Cholesterol due on 09/08/2024 Hemoglobin/Hematocrit due on 09/09/2024 Depression Screening due on 09/22/2024 Anxiety Screening due on 09/22/2024 Serum Creatinine due on 11/25/2024 Annual PCP Team Chronic Disease Visit due on 03/25/2025 Bone Density Screening Completed Influenza Vaccine Completed Advance Directive Discussion Completed Shingrix Vaccine Completed Covid-19 Vaccine Completed Pneumococcal Vaccine: 50+ Completed DTaP,Tdap,Td Vaccine Discontinued Colorectal Cancer Screening Discontinued DATA REVIEWED: Most recent labs ASSESSMENT/PLAN: 1. Type 2 diabetes mellitus with stage 4 chronic kidney disease, with long-term current use of insulin (HCC) - ICD9: 250.40, 585.4, V58.67, ICD10: E11.22, N18.4, Z79.4 (primary diagnosis) - Worsening control - Continue current medications - eGFR: Stable - Albuminuria: stable Follow-up with pharm D and resident medical officer as directed - LANTUS SOLOSTAR U-100 INSULIN 100 UNIT/ML (3 ML) SUBCUTANEOUS PEN - HEMOGLOBIN A1C (POC) today 11.0 2. Urinary frequency - ICD9: 788.41, ICD10: R35.0 acute - URINALYSIS (WITH MICROSCOPIC) WITH CULTURE IF INDICATED - treatment if indicated pending results 3. DDD (degenerative disc disease), thoracolumbar - ICD9: 722.51, ICD10: M51.35 Stable - GABAPENTIN 300 MG CAPSULE 4. Other hyperlipidemia - ICD9: 272.4, ICD10: E78.49 controlled - SIMVASTATIN 40 MG TABLET 5. Hypertensive heart disease with acute on chronic systolic congestive heart failure (HCC) - ICD9: 402.91, 428.23, ICD10: I11.0, I50.23 Stable Follow-up with ballistics teacher as directed 6. Hyperparathyroidism, secondary renal (HCC) - ICD9: 588.81, ICD10: N25.81 Follow-up with nephrology as directed 7. Obesity, Class III, BMI 40-49.9 (morbid obesity) (HCC) - ICD9: 278.01, ICD10: E66.01 Weight increasing Discussed need and benefit of weight loss especially in light of multiple chronic medical problems. 8. Encounter for immunization - ICD9: V03.89, ICD10: Z23 - INFLUENZA VACCINE, PRSV FREE, AGE 65+ YR, HIGH DOSE, TRIVALENT (FLUZONE HIGH-DOSE) - [employer] (ROOF) COVID-19 VACCINE AGE 12+ YR (COMIRNATY) Prescription instructions reviewed with patient as applicable. Potential red flag symptoms discussed with the patient. Reviewed appropriate action plan to take if red flag symptoms occur. Patient agreeable to treatment plan. Kacy Mary APRN.[employer] documented in this encounter [facility] 03-24-2024 History of Present illness Narrative Subjective Patient ID: Val Erickson is a 79 y.o. female who presents for No chief complaint on file.. HPI Patient was seen today on a 2-month follow-up visit. She does have significant obstructive airway disease with dyspnea on exertion and also hypoxemia on exertion. She is morbidly obese. Patient denies any cough or sputum production and no hemoptysis or wheezing. She is currently on Trelegy-100 daily. She does not use any other bronchodilators. She is on supplemental oxygen at 2 L at nighttime and no oxygen during the day, except with increased activity. Reviewed with her the results of her nocturnal oxygen trending which shows that her oxygen saturations were less than or equal to 88% for only 6 minutes on the study. Review of Systems She denies having any fever, chills, rhinitis or sore throat. She is not a smoker. Objective Physical Exam HEENT, patient does have a class IV airway. She has scalloping of her tongue. Pulmonary, lungs were clear to auscultation. Cardio, heart sounds are regular rate and rhythm. Extremities patient has some mild lower extremity edema. Psych, the patient is alert and oriented x 3. Assessment/Plan Impressions: 1. Moderate chronic obstructive pulmonary disease. 2. Dyspnea on exertion. 3. Morbid obesity. Recommendations: 1. Stay on Trelegy-100 daily to be taken in the morning. 2. Use oxygen 2 L at nighttime and only with activity as needed during the day 3. Follow-up with the patient in 4 months. She is actively trying to lose weight. This note was transcribed using the [employer] Dictation system. There may be grammatical, punctuation, or verbiage errors that occur with voice recognition programs. Paula Walter DO 03/24/24 11:04 AM documented in this encounter [facility] Work Phone: 03-05-2024 History of Present illness Narrative Cardiology Subsequent Encounter Clinic Note Name: Val Erickson : 1945 CC: HFrEF Active Issues: 79-year-old female with a medical history of diabetes, neuropathy, hypertension, hyperlipidemia who was first seen at [facility] January 29, 2022 with shortness of breath that at that time was attributed to pneumonia. Creatinine was elevated between 1.9-2.2. Carries a diagnosis of moderate COPD and uses 2 L of oxygen at night. Cardiac issues include: ACC/AHA stage C HFrEF -Echocardiogram dated January 29, 2022 showed reduced EF to 30-35%.; September 2022-EF 30-35% -Underwent dual-chamber implantable ICD October 03, 2022. Currently the patient notes that her shortness of breath is largely at baseline. Denies any orthopnea/PND. Takes Lasix 20 mg daily for lower extremity edema.. She is followed at the heart failure clinic. Was admitted to the hospital August 2023 in the setting of chest discomfort that woke her up from sleep. During this hospitalization she underwent a left/right heart catheterization that showed no obstructive CAD; and relatively normal filling pressures in her heart. Discharged on Lasix 20 mg daily and no other GDMT Symptoms are largely at baseline as compared to her last visit Past Medical History Past Medical History: Diagnosis Date CHF (congestive heart failure) COPD (chronic obstructive pulmonary disease) (Multi) Diabetes mellitus (Multi) Hypertension Past Surgical History Past Surgical History: Procedure Laterality Date CARDIAC CATHETERIZATION N/A 09/09/2023 Procedure: Left And Right Heart Cath, With LV; Surgeon: Cesar Lucio MD; Location: [facility] Cardiac Link Assembler; Service: Cardiovascular; Laterality: N/A; CARDIAC DEFIBRILLATOR PLACEMENT Medications Current Outpatient Medications on File Prior to Visit Medication Sig Dispense Refill BD Ultra-Fine Orig Pen Needle 29 gauge x 1/2 needle docusate sodium (Colace) 100 mg capsule Take 1 capsule (100 mg) by mouth if needed for constipation. As needed empagliflozin (Jardiance) 10 mg Take 1 tablet (10 mg) by mouth once daily. 90 tablet 3 epoetin zari (Epogen) 10,000 unit/mL injection Inject 1.3 mL (13,000 Units) under the skin see administration instructions. EVERY 28 DAYS gobdfjakkly-lwnsafewj-xpsepnsd (Trelegy Ellipta) 100-62.5-25 mcg blister with device USE 1 INHALATION DAILY, RINSE MOUTH OUT WITH WATER AFTER EACH USE 180 each 3 furosemide (Lasix) 20 mg tablet Take 1 tablet (20 mg) by mouth once daily. May also take one tab po daily PRN gabapentin (Neurontin) 300 mg capsule Take 1 capsule (300 mg) by mouth 2 times a day. hydrALAZINE (Apresoline) 25 mg tablet TAKE 1 TABLET THREE TIMES A DAY 270 tablet 3 insulin glargine (Lantus U-100 Insulin) 100 unit/mL injection Inject 55 Units under the skin once daily at bedtime. Take as directed per insulin instructions. (Patient taking differently: Inject 60 Units under the skin once daily at bedtime. Take as directed per insulin instructions.) Lactobacillus acidophilus (PROBIOTIC ACIDOPHILUS ORAL) Take 1 tablet by mouth once daily. metoprolol succinate XL (Toprol-XL) 50 mg 24 hr tablet Take 1 tablet (50 mg) by mouth once daily. Do not crush or chew. 90 tablet 3 simvastatin (Zocor) 40 mg tablet Take 1 tablet (40 mg) by mouth once daily. venlafaxine XR (Effexor-XR) 37.5 mg 24 hr capsule Take 2 capsules (75 mg) by mouth once daily. Take with food No current facility-administered medications on file prior [...] Son Cancer Son Physical Examination Vitals: BP 124/78 Pulse 87 Ht 1.575 m (5' 2) Wt 116 kg (256 lb 1.6 oz) SpO2 94% BMI 46.84 kg/m General: awake, alert and oriented. No [...] pulses palpable bilaterally; no swelling or erythema; trace lower extremity edema Neurological: alert & oriented x 3; no focal deficits Psychiatric: appropriate mood and affect Labs/Imaging/Procedures Lab Results Component Value Date HGB 9.5 (L) 09/10/2023 HGB 9.8 (L) 09/09/2023 HGB 12.0 09/28/2022 HGB 8.7 (L) 01/29/2022 HGB 9.4 (L) 01/28/2022 PLT 188 09/10/2023 WBC 8.0 09/10/2023 NA 135 (L) 11/26/2023 K 4.0 11/26/2023 CREATININE 2.26 (H) 11/26/2023 CREATININE 2.02 (H) 09/11/2023 CREATININE 2.42 (H) 09/10/2023 BUN 48 (H) 11/26/2023 CALCIUM 9.6 11/26/2023 INR 1.1 09/09/2023 BNP 309 (H) 12/12/2022 TROPHS 21 (H) 09/09/2023 TROPHS 20 (H) 09/09/2023 TROPHS 50 (H) 01/26/2022 TROPHS 42 (H) 01/26/2022 No echocardiogram results found for the past 12 months MUGA scan June 2022: Suggestion of bilateral ventricular enlargement with decreased global contractility and a left ventricular ejection fraction calculated to be 23%. Echocardiogram September 2022: 1. Left ventricular systolic function is moderately decreased with a 30-35% estimated ejection fraction. 2. There is global hypokinesis of the left ventricle with minor regional variations. 3. There is a trivial pericardial effusion 4. There is no evidence of cardiac tamponade. 5. RVSP within normal limits. Left/right heart catheterization August 2023 No obstructive CAD RA 4, RV 46/4, PA 45/13 (29), wedge 9, EDP 17, cardiac index 2.1 Impression 79-year-old female with a medical history of diabetes, neuropathy, hypertension, hyperlipidemia who was first seen at [facility] January 29, 2022 with shortness of breath that at that time was attributed to pneumonia. Creatinine was elevated between 1.9-2.2. Carries a diagnosis of moderate COPD and uses 2 L of oxygen at night. Cardiac issues include: ACC/AHA stage C HFrEF -Appears warm and dry at baseline -GDMT currently includes Jardiance and Toprol 50 mg daily -Further up titration limited by kidney function -Last EF 30-35% September 2022 Plan -Overall appears to be warm and dry on exam. Her shortness of breath is likely attributable to age/deconditioning and her diagnosis of COPD in addition to heart failure. -Limited in uptitration of GDMT by her renal function. -I did explain to her that her lower extremity edema is more attributable to venous insufficiency given the normal right atrial pressures seen on a recent right heart catheterization. -RTC 6 months Chris Antoine MD Advanced Heart Failure/Transplant Cardiology Cardio-Oncology [facility] documented in this encounter [facility] Work Phone: 02-28-2024 History of Present illness Narrative Primary Care Pharmacy Visit CC (Reason for Consult): (E11.22, N18.4, Z79.4) Type 2 diabetes mellitus with stage 4 chronic kidney disease, with long-term current use of insulin (HCC) (primary encounter diagnosis) Goal(s): A1c <7% Last Collaborating Provider Visit: 09/23/23 with Kacy Mary CNP Val Erickson is a 79 year old female presenting for follow up visit telephone call. Patient consents to pharmacy collaborative practice agreement. Last Pharmacy Visit: 01/15/24 - Lantus increased to 60 units daily HPI: Reports doing well States BGs have been a little higher lately, sometimes sees higher readings if eats later in evening but denies any other changes Current DM Medications: Lantus 60 units once daily every morning Jardiance 10 mg once daily Previously Trialed DM Meds: Glimepiride - nocturnal hypoglycemia Metformin - reduced renal fxn Pioglitazone - swelling Trulicity - tolerated well; unable to procure d/t backorder - switched to Mounjaro Mounjaro - tolerated well; procurement issues (switched to Rybelsus) Rybelsus- intolerable indigestion Diet Denies any recent changes GLYCEMIC CONTROL: Glucometer present at visit: No Hypoglycemia: No BGs around 200 in the morning the last couple of days Past medical history reviewed. ALLERGIES Allergen Reactions Rybelsus [Semagluti* Intolerance Uncontrollable indigestion Levaquin [Levofloxa* itching,diarrhea,dausea,burning skin Seasonal Allergies Other: See Comments Sinus Sulfa (Sulfonamide * rash and hives Current Outpatient Medications Medication Sig Dispense Refill insulin glargine (LANTUS SOLOSTAR U-100 INSULIN) 100 unit/mL (3 mL) Inject 60 Units subcutaneously daily at bedtime. furosemide (LASIX) 20 mg tablet Take 1 tablet by mouth once daily. Take an extra 20 mg tablet daily as needed 120 tablet 1 Insulin [place], Disposable, 29 gauge x 1/2 Use once daily as directed. Dx E11.29 100 Each 4 venlafaxine ER (EFFEXOR XR) 75 mg 24 hr capsule Take 1 capsule by mouth once daily. 90 capsule 3 gabapentin (NEURONTIN) 300 mg capsule Take 1 capsule by mouth two times a day for 180 days. 180 capsule 1 empagliflozin (JARDIANCE) 10 mg tablet Take 1 tablet by mouth once daily. Prescribed by ballistics teacher calcitriol (ROCALTROL) 0.5 mcg capsule Take 0.5 mcg by mouth. clotrimazole (LOTRIMIN) 1 % cream Apply to affected area. lidocaine (SALONPAS) 4 % patch Apply 1 Patch as directed. simvastatin (ZOCOR) 40 mg tablet Take 1 tablet by mouth daily at bedtime. For cholesterol. 90 tablet 3 hydrALAZINE (APRESOLINE) 25 mg tablet Take 25 mg by mouth three times a day. metoprolol succinate ER (TOPROL XL) 50 mg 24 hr tablet Take 1 tablet by mouth once daily. Per Dr. Yulia Antoine, cardiology. hjzyorwaliu-iywsxwixe-idhfqwtj (TRELEGY ELLIPTA) 100-62.5-25 mcg inhalation powder Inhale 1 Puff as instructed once daily. docusate sodium (COLACE) 100 mg capsule Take 1 capsule by mouth as needed. melatonin 5 mg tablet Take 2 tablets by mouth. senna (SENOKOT) 8.6 mg tab Take 1 tablet by mouth as needed. Vit C-Vit F-Vxjsbt-YpBd-Lutein (PRESERVISION LUTEIN) 226 mg-200 unit -5 mg-0.8 mg cap Take 1 capsule by mouth once daily. COMPOUNDED PRESCRIPTION Take 1 tablet by mouth twice daily. Plexus Bio-5 (Probiotic) blood sugar diagnostic ([employer] CorporationTOUCH ULTRA TEST) test strip Test blood sugar(s) [...] Last 3 Encounter BP Readings: Date: BP: 09/23/2023 118/78 05/01/2023 118/68 01/04/2023 106/66 Wt: 0 kg () BMI: 0.00 kg/(m^2) LABS: Lab Results Component Value Date HBA1C 7.0 09/23/2023 HBA1C 8.3 05/01/2023 HBA1C 12.4 01/04/2023 HBA1C 6.5 05/19/2018 HBA1C 6.4 02/18/2012 HBA1C [...] 585.4, V58.67, ICD10: E11.22, N18.4, Z79.4 - Control undetermined, due for labs - Continue current medications - Statin prescribed - simvastatin - Blood glucose monitoring on a once daily schedule - Counseled on healthy diet and regular exercise - Discussed diabetic education issues of hypoglycemic/hyperglycemic symptoms - Follow up in 1 month, sooner should any other issues arise. - Due for A1c Follow Up: Next PCP visit: 03/25/24 Next PharmD visit: 04/08/24 Tessa Brock, Janessa, BCACP Primary Care Clinical Wine And Spir[employer] Clerk documented in this encounter [facility] 02-28-2024 Note HNO ID: [id number] Author: TESSA BROCK RPh Service: ? Author Type: Pharmacist Type: Progress Notes Filed: 02/28/2024 11:03 Note Text: Primary Care Pharmacy Visit CC (Reason for Consult): (E11.22, N18.4, Z79.4) Type 2 diabetes mellitus with stage 4 chronic kidney disease, with long-term current use of insulin (HCC) (primary encounter diagnosis) Goal(s): A1c <7% Last Collaborating Provider Visit: 09/23/23 with Kacy Mary CNP Val Erickson is a 79 year old female presenting for follow up visit telephone call. Patient consents to pharmacy collaborative practice agreement. Last Pharmacy Visit: 01/15/24 - Lantus increased to 60 units daily HPI: Reports doing well States BGs have been a little higher lately, sometimes sees higher readings if eats later in evening but denies any other changes Current DM Medications: Lantus 60 units once daily every morning Jardiance 10 mg once daily Previously Trialed DM Meds: Glimepiride - nocturnal hypoglycemia Metformin - reduced renal fxn Pioglitazone - swelling Trulicity - tolerated well; unable to procure d/t backorder - switched to Mounjaro Mounjaro - tolerated well; procurement issues (switched to Rybelsus) Rybelsus- intolerable indigestion Diet Denies any recent changes GLYCEMIC CONTROL: Glucometer present at visit: No Hypoglycemia: No BGs around 200 in the morning the last couple of days Past medical history reviewed. ALLERGIES Allergen Reactions Rybelsus [Semagluti* Intolerance Uncontrollable indigestion Levaquin [Levofloxa* itching,diarrhea,dausea,burning skin Seasonal Allergies Other: See Comments Sinus Sulfa (Sulfonamide * rash and hives Current Outpatient Medications Medication Sig Dispense Refill insulin glargine (LANTUS SOLOSTAR U-100 INSULIN) 100 unit/mL (3 mL) Inject 60 Units subcutaneously daily at bedtime. furosemide (LASIX) 20 mg tablet Take 1 tablet by mouth once daily. Take an extra 20 mg tablet daily as needed 120 tablet 1 Insulin [place], Disposable, 29 gauge x 1/2 Use once daily as directed. Dx E11.29 100 Each 4 venlafaxine ER (EFFEXOR XR) 75 mg 24 hr capsule Take 1 capsule by mouth once daily. 90 capsule 3 gabapentin (NEURONTIN) 300 mg capsule Take 1 capsule by mouth two times a day for 180 days. 180 capsule 1 empagliflozin (JARDIANCE) 10 mg tablet Take 1 tablet by mouth once daily. Prescribed by ballistics teacher calcitriol (ROCALTROL) 0.5 mcg capsule Take 0.5 mcg by mouth. clotrimazole (LOTRIMIN) 1 % cream Apply to affected area. lidocaine (SALONPAS) 4 % patch Apply 1 Patch as directed. simvastatin (ZOCOR) 40 mg tablet Take 1 tablet by mouth daily at bedtime. For cholesterol. 90 tablet 3 hydrALAZINE (APRESOLINE) 25 mg tablet Take 25 mg by mouth three times a day. metoprolol succinate ER (TOPROL XL) 50 mg 24 hr tablet Take 1 tablet by mouth once daily. Per Dr. Yulia Antoine, cardiology. zmvoupezuiu-fucbbkiui-mjfezlam (TRELEGY ELLIPTA) 100-62.5-25 mcg inhalation powder Inhale 1 Puff as instructed once daily. docusate sodium (COLACE) 100 mg capsule Take 1 capsule by mouth as needed. melatonin 5 mg tablet Take 2 tablets by mouth. senna (SENOKOT) 8.6 mg tab Take 1 tablet by mouth as needed. Vit C-Vit J-Bxatmi-ToCg-Lutein (PRESERVISION LUTEIN) 226 mg-200 unit -5 mg-0.8 mg cap Take 1 capsule by mouth once daily. COMPOUNDED PRESCRIPTION Take 1 tablet by mouth twice daily. Plexus Bio-5 (Probiotic) blood sugar diagnostic ([employer] CorporationTOUCH ULTRA TEST) test strip Test blood sugar(s) [...] Last 3 Encounter BP Readings: Date: BP: 09/23/2023 118/78 05/01/2023 118/68 01/04/2023 106/66 Wt: 0 kg () BMI: 0.00 kg/(m2) LABS: Lab Results Component Value Date HBA1C 7.0 09/23/2023 HBA1C 8.3 05/01/2023 HBA1C 12.4 01/04/2023 HBA1C 6.5 05/19/2018 HBA1C 6.4 02/18/2012 HBA1C [...] Races (.) Date Value 05/19/2018 30 ASSESSMENT/PLAN: (more content not included)... [facility] 02-26-2024 Telephone encounter Note Called patient for scheduled pharmacy phone follow up; unable to reach after multiple attempts. Left VM with phone number to reschedule appointment. Tessa Brock PharmD, JEFERSON Primary Care Clinical Wine And Spirits Clerk [facility] Work Phone: 02-26-2024 Miscellaneous Notes Called patient for scheduled pharmacy phone follow up; unable to reach after multiple attempts. Left VM with phone number to reschedule appointment. Tessa Brock PharmD, JEFERSON Primary Care Clinical Wine And Spirits Clerk documented in this encounter [facility] 01-15-2024 History of Present illness Narrative Images from the original note were not included. Primary Care Pharmacy Visit CC (Reason for Consult): (E11.22, N18.4, Z79.4) Type 2 diabetes mellitus with stage 4 chronic kidney disease, with long-term current use of insulin ([facility]) (primary encounter diagnosis) Goal(s): A1c <7% Last Collaborating Provider Visit: 09/23/23 with Kacy Mary CNP Val Erickson is a 78 year old female presenting for follow up visit telephone call. Patient consents to pharmacy collaborative practice agreement. . Last Pharmacy Visit: 10/30/23 HPI: Reports doing well States she switched to taking insulin in the morning instead of at bedtime States BGs have been a little higher recently; denies any changes in diet/lifestyle States she has excess supply of insulin since mail order pharmacy kept sending her refills early so requests to hold off on sending new script in at this time Current DM Medications: Lantus 55 units once daily Jardiance 10 mg once daily Previously Trialed DM Meds: Glimepiride - nocturnal hypoglycemia Metformin - reduced renal fxn Pioglitazone - swelling Trulicity - tolerated well; unable to procure d/t backorder - switched to Mounjaro Mounjaro - tolerated well; procurement issues (switched to Rybelsus) Rybelsus- intolerable indigestion Diet Denies any recent changes GLYCEMIC CONTROL: Glucometer present at visit: No Hypoglycemia: No BGs have been a little high in the low 200s, high 100s Past medical history reviewed. ALLERGIES Allergen Reactions Rybelsus [Semagluti* Intolerance Uncontrollable indigestion Levaquin [Levofloxa* itching,diarrhea,dausea,burning skin Seasonal Allergies Other: See Comments Sinus Sulfa (Sulfonamide * rash and hives Current Outpatient Medications Medication Sig Dispense Refill furosemide (LASIX) 20 mg tablet Take 1 tablet by mouth once daily. Take an extra 20 mg tablet daily as needed 120 tablet 1 insulin glargine (LANTUS SOLOSTAR U-100 INSULIN) 100 unit/mL (3 mL) Inject 55 Units subcutaneously daily at bedtime. 60 mL 3 Insulin [place], Disposable, 29 gauge x 1/2 Use once daily as directed. Dx E11.29 100 Each 4 venlafaxine ER (EFFEXOR XR) 75 mg 24 hr capsule Take 1 capsule by mouth once daily. 90 capsule 3 gabapentin (NEURONTIN) 300 mg capsule Take 1 capsule by mouth two times a day for 180 days. 180 capsule 1 empagliflozin (JARDIANCE) 10 mg tablet Take 1 tablet by mouth once daily. Prescribed by ballistics teacher calcitriol (ROCALTROL) 0.5 mcg capsule Take 0.5 mcg by mouth. clotrimazole (LOTRIMIN) 1 % cream Apply to affected area. lidocaine (SALONPAS) 4 % patch Apply 1 Patch as directed. simvastatin (ZOCOR) 40 mg tablet Take 1 tablet by mouth daily at bedtime. For cholesterol. 90 tablet 3 hydrALAZINE (APRESOLINE) 25 mg tablet Take 25 mg by mouth three times a day. metoprolol succinate ER (TOPROL XL) 50 mg 24 hr tablet Take 1 tablet by mouth once daily. Per Dr. Yulia Antoine, cardiology. eevkdxtthjo-rnyrzzhao-pjkbhkke (TRELEGY ELLIPTA) 100-62.5-25 mcg inhalation powder Inhale 1 Puff as instructed once daily. docusate sodium (COLACE) 100 mg capsule Take 1 capsule by mouth as needed. melatonin 5 mg tablet Take 2 tablets by mouth. senna (SENOKOT) 8.6 mg tab Take 1 tablet by mouth as needed. Vit C-Vit T-Oapghw-UiVt-Lutein (PRESERVISION LUTEIN) 226 mg-200 unit -5 mg-0.8 mg cap Take 1 capsule by mouth once daily. COMPOUNDED PRESCRIPTION Take 1 tablet by mouth twice daily. Plexus Bio-5 (Probiotic) blood sugar diagnostic ([employer] CorporationTOUCH ULTRA TEST) test strip Test blood sugar(s) [...] Last 3 Encounter BP Readings: Date: BP: 09/23/2023 118/78 05/01/2023 118/68 01/04/2023 106/66 Wt: 0 kg () BMI: 0.00 kg/(m^2) LABS: Outside labs - 01/01/24: Lab Results Component Value Date HBA1C 7.0 09/23/2023 HBA1C 8.3 05/01/2023 HBA1C 12.4 01/04/2023 HBA1C 6.5 05/19/2018 HBA1C 6.4 02/18/2012 HBA1C [...] 585.4, V58.67, ICD10: E11.22, N18.4, Z79.4 - Worsening control - Increase Lantus 60 units once daily - Continue Jardiance 10 mg once daily - Statin prescribed - simvastatin - Blood glucose monitoring on a once daily schedule - Counseled on healthy diet and regular exercise - Discussed diabetic education issues of hypoglycemic/hyperglycemic symptoms - Follow up in 6 weeks, sooner should any other issues arise. Follow Up: Next PCP visit: not scheduled Next PharmD visit: 02/26/24 Tessa Brock, PharmD, BCACP Primary Care Clinical [employer] Clerk documented in this encounter [facility] 01-15-2024 Note HNO ID: [id number] Author: TESSA BROCK RPh Service: ? Author Type: Pharmacist Type: Progress Notes Filed: 01/15/2024 14:18 Note Text: Primary Care Pharmacy Visit CC (Reason for Consult): (E11.22, N18.4, Z79.4) Type 2 diabetes mellitus with stage 4 chronic kidney disease, with long-term current use of insulin (HCC) (primary encounter diagnosis) Goal(s): A1c <7% Last Collaborating Provider Visit: 09/23/23 with Kacy Mary CNP Val Erickson is a 78 year old female presenting for follow up visit telephone call. Patient consents to pharmacy collaborative practice agreement. . Last Pharmacy Visit: 10/30/23 HPI: Reports doing well States she switched to taking insulin in the morning instead of at bedtime States BGs have been a little higher recently; denies any changes in diet/lifestyle States she has excess supply of insulin since mail order pharmacy kept sending her refills early so requests to hold off on sending new script in at this time Current DM Medications: Lantus 55 units once daily Jardiance 10 mg once daily Previously Trialed DM Meds: Glimepiride - nocturnal hypoglycemia Metformin - reduced renal fxn Pioglitazone - swelling Trulicity - tolerated well; unable to procure d/t backorder - switched to Mounjaro Mounjaro - tolerated well; procurement issues (switched to Rybelsus) Rybelsus- intolerable indigestion Diet Denies any recent changes GLYCEMIC CONTROL: Glucometer present at visit: No Hypoglycemia: No BGs have been a little high in the low 200s, high 100s Past medical history reviewed. ALLERGIES Allergen Reactions Rybelsus [Semagluti* Intolerance Uncontrollable indigestion Levaquin [Levofloxa* itching,diarrhea,dausea,burning skin Seasonal Allergies Other: See Comments Sinus Sulfa (Sulfonamide * rash and hives Current Outpatient Medications Medication Sig Dispense Refill furosemide (LASIX) 20 mg tablet Take 1 tablet by mouth once daily. Take an extra 20 mg tablet daily as needed 120 tablet 1 insulin glargine (LANTUS SOLOSTAR U-100 INSULIN) 100 unit/mL (3 mL) Inject 55 Units subcutaneously daily at bedtime. 60 mL 3 Insulin [place], Disposable, 29 gauge x 1/2 Use once daily as directed. Dx E11.29 100 Each 4 venlafaxine ER (EFFEXOR XR) 75 mg 24 hr capsule Take 1 capsule by mouth once daily. 90 capsule 3 gabapentin (NEURONTIN) 300 mg capsule Take 1 capsule by mouth two times a day for 180 days. 180 capsule 1 empagliflozin (JARDIANCE) 10 mg tablet Take 1 tablet by mouth once daily. Prescribed by ballistics teacher calcitriol (ROCALTROL) 0.5 mcg capsule Take 0.5 mcg by mouth. clotrimazole (LOTRIMIN) 1 % cream Apply to affected area. lidocaine (SALONPAS) 4 % patch Apply 1 Patch as directed. simvastatin (ZOCOR) 40 mg tablet Take 1 tablet by mouth daily at bedtime. For cholesterol. 90 tablet 3 hydrALAZINE (APRESOLINE) 25 mg tablet Take 25 mg by mouth three times a day. metoprolol succinate ER (TOPROL XL) 50 mg 24 hr tablet Take 1 tablet by mouth once daily. Per Dr. Yulia Antoine, cardiology. igawuynylse-xwpjspufg-hzpegjql (TRELEGY ELLIPTA) 100-62.5-25 mcg inhalation powder Inhale 1 Puff as instructed once daily. docusate sodium (COLACE) 100 mg capsule Take 1 capsule by mouth as needed. melatonin 5 mg tablet Take 2 tablets by mouth. senna (SENOKOT) 8.6 mg tab Take 1 tablet by mouth as needed. Vit C-Vit M-Xwheyd-DuHg-Lutein (PRESERVISION LUTEIN) 226 mg-200 unit -5 mg-0.8 mg cap Take 1 capsule by mouth once daily. COMPOUNDED PRESCRIPTION Take 1 tablet by mouth twice daily. Plexus Bio-5 (Probiotic) blood sugar diagnostic ([employer] CorporationTOUCH ULTRA TEST) test strip Test blood sugar(s) [...] Last 3 Encounter BP Readings: Date: BP: 09/23/2023 118/78 05/01/2023 118/68 01/04/2023 106/66 Wt: 0 kg () BMI: 0.00 kg/(m2) LABS: Outside labs - 01/01/24: Lab Results Component Value Date HBA1C 7.0 09/23/2023 HBA1C 8.3 05/01/2023 HBA1C 12.4 01/04/2023 HBA1C 6.5 05/19/2018 HBA1C 6.4 02/18/2012 HBA1C 7.8 09/21/2011 Glucose 171 03/22/2021 BUN 33 05/19/2018 Creatinine 2.02 03/22/2021 Sodium 140 03/22/2021 Potassium 4.4 03/22/2021 Chloride 108 03/22/2021 CO2 22 05/19/2018 Calcium 10 03/22/2021 Lab Results Component Value Date CHOL 121 05/19/2018 LDL 50 (more content not included)... [facility] 12-03-2023 Telephone encounter Note The patient has been identified by name and date of : Yes Caregiver verified no other encounters exist for this prescription request: Yes Caregiver confirmed with patient/requestor that no other refills are due, in the near future, with this provider at this time: Yes The last office visit in the department: 09/23/2023 Does the patient have a future office visit with this provider/department: No Visit date not found Requested Prescriptions Pending Prescriptions Disp Refills furosemide (LASIX) 20 mg tablet 120 tablet 1 Sig: Take 1 tablet by mouth once daily. Take an extra 20 mg tablet daily as needed Elizabeth Aguilar RN December 03, 2023 12:04 PM [facility] 12-03-2023 Miscellaneous Notes The patient has been identified by name and date of : Yes Caregiver verified no other encounters exist for this prescription request: Yes Caregiver confirmed with patient/requestor that no other refills are due, in the near future, with this provider at this time: Yes The last office visit in the department: 09/23/2023 Does the patient have a future office visit with this provider/department: No Visit date not found Requested Prescriptions Pending Prescriptions Disp Refills furosemide (LASIX) 20 mg tablet 120 tablet 1 Sig: Take 1 tablet by mouth once daily. Take an extra 20 mg tablet daily as needed Elizabeth Aguilar RN December 03, 2023 12:04 PM documented in this encounter [facility] 10-30-2023 History of Present illness Narrative Images from the original note were not included. Primary Care Pharmacy Visit CC (Reason for Consult): (E11.22, N18.4, Z79.4) Type 2 diabetes mellitus with stage 4 chronic kidney disease, with long-term current use of insulin ([facility]) (primary encounter diagnosis) Goal(s): A1c <7% Last Collaborating Provider Visit: 09/23/23 with Kacy Mary CNP Val Erickson is a 78 year old female presenting for follow up visit telephone call. Patient consents to pharmacy collaborative practice agreement. Last Pharmacy Visit: 09/04/23 - Lantus decreased to 48 units daily Interim Events: - 09/12/23 Jardiance started by outside ballistics teacher HPI: Reports doing well States she self-increased Lantus back up to 55 units because her readings were going up when she decreased dose. States she has not had any issues with low blood sugar recently States Jardiance was started by cardiology, tolerating well. States she's had some diarrhea intermittently since but not sure if its from the new medication or from her diet Current DM Medications: Insulin glargine (Lantus) 48 units daily at bedtime - taking 55 units once daily Jardiance 10 mg once daily Previously Trialed DM Meds: Glimepiride - nocturnal hypoglycemia Metformin - reduced renal fxn Pioglitazone - swelling Trulicity - tolerated well; unable to procure d/t backorder - switched to Mounjaro Mounjaro - tolerated well; procurement issues (switched to Rybelsus) Rybelsus- intolerable indigestion GLYCEMIC CONTROL: Glucometer present at visit: No Hypoglycemia: No BGs averaging around 100, 98 yesterday, 106, 110 Had one high reading was because she ate pizza Past medical history reviewed. ALLERGIES Allergen Reactions Rybelsus [Semagluti* Intolerance Uncontrollable indigestion Levaquin [Levofloxa* itching,diarrhea,dausea,burning skin Seasonal Allergies Other: See Comments Sinus Sulfa (Sulfonamide * rash and hives Current Outpatient Medications Medication Sig Dispense Refill Insulin [place], Disposable, 29 gauge x 1/2 Use once daily as directed. Dx E11.29 100 Each 4 venlafaxine ER (EFFEXOR XR) 75 mg 24 hr capsule Take 1 capsule by mouth once daily. 90 capsule 3 gabapentin (NEURONTIN) 300 mg capsule Take 1 capsule by mouth two times a day for 180 days. 180 capsule 1 empagliflozin (JARDIANCE) 10 mg tablet Take 1 tablet by mouth once daily. Prescribed by ballistics teacher insulin glargine (LANTUS SOLOSTAR U-100 INSULIN) 100 unit/mL (3 mL) Inject 48 Units subcutaneously daily at bedtime. furosemide (LASIX) 20 mg tablet Take 1 tablet by mouth once daily. Take an extra 20 mg tablet daily as needed 120 tablet 1 calcitriol (ROCALTROL) 0.5 mcg capsule Take 0.5 mcg by mouth. clotrimazole (LOTRIMIN) 1 % cream Apply to affected area. lidocaine (SALONPAS) 4 % patch Apply 1 Patch as directed. simvastatin (ZOCOR) 40 mg tablet Take 1 tablet by mouth daily at bedtime. For cholesterol. 90 tablet 3 hydrALAZINE (APRESOLINE) 25 mg tablet Take 25 mg by mouth three times a day. metoprolol succinate ER (TOPROL XL) 50 mg 24 hr tablet Take 1 tablet by mouth once daily. Per Dr. Yulia Antoine, cardiology. bdbjkeyrnnj-wzrjihqun-xteorigo (TRELEGY ELLIPTA) 100-62.5-25 mcg inhalation powder Inhale 1 Puff as instructed once daily. docusate sodium (COLACE) 100 mg capsule Take 1 capsule by mouth as needed. melatonin 5 mg tablet Take 2 tablets by mouth. senna (SENOKOT) 8.6 mg tab Take 1 tablet by mouth as needed. Vit C-Vit N-Pbbnsl-ZlGj-Lutein (PRESERVISION LUTEIN) 226 mg-200 unit -5 mg-0.8 [...] Last 3 Encounter BP Readings: Date: BP: 09/23/2023 118/78 05/01/2023 118/68 01/04/2023 106/66 Wt: 0 kg () BMI: 0.00 kg/(m^2) LABS: Outside Labs 10/09/23: Lab Results Component Value Date HBA1C 7.0 09/23/2023 HBA1C 8.3 05/01/2023 HBA1C 12.4 01/04/2023 HBA1C 6.5 05/19/2018 HBA1C 6.4 02/18/2012 HBA1C [...] E11.22, N18.4, Z79.4 - Improving control - Continue current medications (updated med list to reflect current insulin dose as patient taking) - Statin prescribed - simvastatin - Blood glucose monitoring on a once daily schedule - Counseled on healthy diet and regular exercise - Follow up in 2 months, sooner should any other issues arise. Follow Up: Next PCP visit: not scheduled Next PharmD visit: 01/15/24 Tessa Brock, PharmD, BCACP Primary Care Clinical [employer] Clerk documented in this encounter [facility] 10-30-2023 Note HNO ID: [id number] Author: TESSA BROCK jennifer Service: ? Author Type: Pharmacist Type: Progress Notes Filed: 10/30/2023 14:52 Note Text: Primary Care Pharmacy Visit CC (Reason for Consult): (E11.22, N18.4, Z79.4) Type 2 diabetes mellitus with stage 4 chronic kidney disease, with long-term current use of insulin (HCC) (primary encounter diagnosis) Goal(s): A1c <7% Last Collaborating Provider Visit: 09/23/23 with Kacy Mary CNP Val Erickson is a 78 year old female presenting for follow up visit telephone call. Patient consents to pharmacy collaborative practice agreement. Last Pharmacy Visit: 09/04/23 - Lantus decreased to 48 units daily Interim Events: - 09/12/23 Jardiance started by outside ballistics teacher HPI: Reports doing well States she self-increased Lantus back up to 55 units because her readings were going up when she decreased dose. States she has not had any issues with low blood sugar recently States Jardiance was started by cardiology, tolerating well. States she's had some diarrhea intermittently since but not sure if its from the new medication or from her diet Current DM Medications: Insulin glargine (Lantus) 48 units daily at bedtime - taking 55 units once daily Jardiance 10 mg once daily Previously Trialed DM Meds: Glimepiride - nocturnal hypoglycemia Metformin - reduced renal fxn Pioglitazone - swelling Trulicity - tolerated well; unable to procure d/t backorder - switched to Mounjaro Mounjaro - tolerated well; procurement issues (switched to Rybelsus) Rybelsus- intolerable indigestion GLYCEMIC CONTROL: Glucometer present at visit: No Hypoglycemia: No BGs averaging around 100, 98 yesterday, 106, 110 Had one high reading was because she ate pizza Past medical history reviewed. ALLERGIES Allergen Reactions Rybelsus [Semagluti* Intolerance Uncontrollable indigestion Levaquin [Levofloxa* itching,diarrhea,dausea,burning skin Seasonal Allergies Other: See Comments Sinus Sulfa (Sulfonamide * rash and hives Current Outpatient Medications Medication Sig Dispense Refill Insulin [place], Disposable, 29 gauge x 1/2 Use once daily as directed. Dx E11.29 100 Each 4 venlafaxine ER (EFFEXOR XR) 75 mg 24 hr capsule Take 1 capsule by mouth once daily. 90 capsule 3 gabapentin (NEURONTIN) 300 mg capsule Take 1 capsule by mouth two times a day for 180 days. 180 capsule 1 empagliflozin (JARDIANCE) 10 mg tablet Take 1 tablet by mouth once daily. Prescribed by ballistics teacher insulin glargine (LANTUS SOLOSTAR U-100 INSULIN) 100 unit/mL (3 mL) Inject 48 Units subcutaneously daily at bedtime. furosemide (LASIX) 20 mg tablet Take 1 tablet by mouth once daily. Take an extra 20 mg tablet daily as needed 120 tablet 1 calcitriol (ROCALTROL) 0.5 mcg capsule Take 0.5 mcg by mouth. clotrimazole (LOTRIMIN) 1 % cream Apply to affected area. lidocaine (SALONPAS) 4 % patch Apply 1 Patch as directed. simvastatin (ZOCOR) 40 mg tablet Take 1 tablet by mouth daily at bedtime. For cholesterol. 90 tablet 3 hydrALAZINE (APRESOLINE) 25 mg tablet Take 25 mg by mouth three times a day. metoprolol succinate ER (TOPROL XL) 50 mg 24 hr tablet Take 1 tablet by mouth once daily. Per Dr. Yulia Antoine, cardiology. gohowjbxhyc-ocvssurbt-zhfuofqw (TRELEGY ELLIPTA) 100-62.5-25 mcg inhalation powder Inhale 1 Puff as instructed once daily. docusate sodium (COLACE) 100 mg capsule Take 1 capsule by mouth as needed. melatonin 5 mg tablet Take 2 tablets by mouth. senna (SENOKOT) 8.6 mg tab Take 1 tablet by mouth as needed. Vit C-Vit N-Wdnpnr-DrJc-Lutein (PRESERVISION LUTEIN) 226 mg-200 unit -5 mg-0.8 mg cap Take 1 capsule by mouth once daily. COMPOUNDED PRESCRIPTION Take 1 tablet by mouth twice daily. Plexus Bio-5 (Probiotic) blood sugar diagnostic ([employer] CorporationTOUCH ULTRA TEST) test strip Test blood sugar(s) 2 times daily. (Patient taking differently: 1 Each. Test blood sugar(s) 2 times daily.) 200 Strip 3 epoetin zari (PROCRIT,EPOGEN) 10,000 unit/mL injection Inject 10,000 Units subcutaneously q 4 WEEKS. 12,000 Units every two weeks. 0 Lancets (FREESTYLE LANCETS) [facility] [place] Misc Test twice daily 250.02 100 3 [...] Last 3 Encounter BP Readings: Date: BP: 09/23/2023 118/78 05/01/2023 118/68 01/04/2023 106/66 Wt: 0 kg () BMI: 0.00 kg/(m2) LABS: Outside Labs 10/09/23: Lab Results Component Value Date HBA1C 7.0 09/23/2023 HBA1C 8.3 05/01/2023 HBA1C 12.4 01/04/2023 HBA1C 6.5 05/19/2018 HBA1C 6.4 02/18/2012 HBA1C 7.8 09/21/2011 Glucose 171 03/22/2021 BUN 33 05/19/2018 Creatinine 2.02 / (more content not included)... [facility] 10-22-2023 Telephone encounter Note Prescription Refill Information The patient has been identified by name and date of : Yes Caregiver verified no other encounters exist for this prescription request: Yes Caregiver confirmed with patient/requestor that no other refills are due, in the near future, with this provider at this time: Yes The last office visit in the department: 09-23-23 Does the patient have a future office visit with this provider/department: Yes Requested Prescriptions Pending Prescriptions Disp Refills Insulin [place], Disposable, 29 gauge x 1/2 100 Each 4 Sig: Use once daily as directed. Dx E11.29 Marly Buck October 22, 2023 9:45 AM [facility] 10-22-2023 Miscellaneous Notes Prescription Refill Information The patient has been identified by name and date of : Yes Caregiver verified no other encounters exist for this prescription request: Yes Caregiver confirmed with patient/requestor that no other refills are due, in the near future, with this provider at this time: Yes The last office visit in the department: 09-23-23 Does the patient have a future office visit with this provider/department: Yes Requested Prescriptions Pending Prescriptions Disp Refills Insulin [place], Disposable, 29 gauge x 1/2 100 Each 4 Sig: Use once daily as directed. Dx E11.29 Marly Buck October 22, 2023 9:45 AM documented in this encounter [facility] 10-16-2023 Note HNO ID: [id number] Author: ANNALISA STEPHEN RN Service: ? Author Type: Registered Nurse Type: Progress Notes Filed: 10/16/2023 12:47 Note Text: CDM Care Path Telephonic Outreach Provider Action/ I am waiting for the physical therapy girl to come today. I have called the company and they said she was going to come today. My hip is doing better. Jardiance has helped with my leg swelling. Contact made with patient: Yes Patient identified by Name and Date of . Discussed care with patient. Contacted for Chronic Disease Care Path: Congestive Heart Failure Health maintenance addressed this outreach: Primary Care Provider visit every six (6) months Education provided this outreach: Your Guide to Managing Heart Failure: Topics -- Activity Guidelines / Exercise GOALS Disease specific goals updated: No Patient [...] to talk about today? No Based on threat monitoring analyst, the following disposition is advised: Other Call Dispositions No action needed Program Disposition Patient dispositioned from Program today: Yes Patient Graduated -- The patient has completed the full care coordination episode. Annalisa Stephen RN October 16, 2023 12:46 PM [facility] 10-16-2023 History of Present illness Narrative [facility] Care Path Telephonic Outreach Provider Action/ I am waiting for the physical therapy girl to come today. I have called the company and they said she was going to come today. My hip is doing better. Jardiance has helped with my leg swelling. Contact made with patient: Yes Patient identified by Name and Date of . Discussed care with patient. Contacted for Chronic Disease Care Path: Congestive Heart Failure Health maintenance addressed this outreach: Primary Care Provider visit every six (6) months Education provided this outreach: Your Guide to Managing Heart Failure: Topics -- Activity Guidelines / Exercise GOALS Disease specific goals updated: No Patient [...] to talk about today? No Based on threat monitoring analyst, the following disposition is advised: Other Call Dispositions No action needed Program Disposition Patient dispositioned from Program today: Yes Patient Graduated -- The patient has completed the full care coordination episode. Annalisa Stephen RN October 16, 2023 12:46 PM documented in this encounter [facility] 10-16-2023 Note Patient Outreach ([facility] VAL ERICKSON ([id number]) 1945 F Date Time Provider Department 10/16/23 ANNALISA STEPHEN During your visit today, we recorded the following information about you: Annalisa Stephen RN 10/16/2023 12:47 PM Signed [facility] Care Path Telephonic Outreach Provider Action/FY I am waiting for the physical therapy girl to come today. I have called the company and they said she was going to come today. My hip is doing better. Jardiance has helped with my leg swelling. Contact made with patient: Yes Patient identified by Name and Date of . Discussed care with patient. Contacted for Chronic Disease Care Path: Congestive Heart Failure Health maintenance addressed this outreach: Primary Care Provider visit every six (6) months Education provided this outreach: Your Guide to Managing Heart Failure: Topics -- Activity Guidelines / Exercise GOALS Disease specific goals updated: No Patient [...] to talk about today? No Based on threat monitoring analyst, the following disposition is advised: Other Call Dispositions No action needed Program Disposition Patient dispositioned from Program today: Yes Patient Graduated -- The patient has completed the full care coordination episode. Annalisa Stephen RN October 16, 2023 12:46 PM Allergies As of Date: 10/16/2023 Noted Allergy Reaction RYBELSUS (SEMAGLUTIDE) 07/10/2023 5 - Intolerance Comments: Uncontrollable indigestion LEVAQUIN (LEVOFLOXACIN) 12/29/2004 Comments: itching,diarrhea,dausea,burning skin SEASONAL ALLERGIES 08/19/2014 14 - Other: See Comments Comments: Sinus SULFA (SULFONAMIDE ANTIBIOTICS) 12/29/2004 Comments: rash and hives Date Reviewed: 09/23/2023 Reviewed by: Kacy Mary APRN.[employer] - Fully Assessed Reason for Visit: Community Monitoring Outreach [Other] Cmt: Follow up Prescriptions as of 10/16/2023 - venlafaxine ER (EFFEXOR XR) 75 mg 24 hr capsule Take 1 capsule by mouth once daily. - gabapentin (NEURONTIN) 300 mg capsule Take 1 capsule by mouth two times a day for 180 days. - empagliflozin (JARDIANCE) 10 mg tablet Take 1 tablet by mouth once daily. Prescribed by ballistics teacher - insulin glargine (LANTUS SOLOSTAR U-100 INSULIN) 100 unit/mL (3 mL) Inject 48 Units subcutaneously daily at bedtime. - furosemide (LASIX) 20 mg tablet Take 1 tablet by mouth once daily. Take an extra 20 mg tablet daily as needed - calcitriol (ROCALTROL) 0.5 mcg capsule Take 0.5 mcg by mouth. - clotrimazole (LOTRIMIN) 1 % cream Apply to affected area. - lidocaine (SALONPAS) 4 % patch Apply 1 Patch as directed. - simvastatin (ZOCOR) 40 mg tablet Take 1 tablet by mouth daily at bedtime. For cholesterol. - hydrALAZINE (APRESOLINE) 25 mg tablet Take 25 mg by mouth three times a day. - metoprolol succinate ER (TOPROL XL) 50 mg 24 hr tablet Take 1 tablet by mouth once daily. Per Dr. Yulia Antoine, cardiology. - Insulin [place], Disposable, 29 gauge x 1/2 Use once daily as directed. Dx E11.29 - zgezsdpdznu-rraipfuqr-egunzcqe (TRELEGY ELLIPTA) 100-62.5-25 mcg inhalation powder Inhale 1 Puff as instructed once daily. - docusate sodium (COLACE) 100 mg capsule Take 1 capsule by mouth as needed. - melatonin 5 mg tablet Take 2 tablets by mouth. - senna (SENOKOT) 8.6 mg tab Take 1 tablet by mouth as needed. - Vit C-Vit X-Zubtvk-MuVd-Lutein (PRESERVISION LUTEIN) 226 mg-200 unit -5 mg-0.8 [...] daily 250.02 Problem List As Of Date 10/16/2023 Noted Resolved Essential hypertension [I10] Generalized osteoarthritis [M15.9] ALLERGIC RHINITIS D/T ANIMAL [J30.81] Hyperlipemia [E78.5] Acute bronchitis [J20.9] 06/01/2010 Chest pain, unspecified [R07.9] 06/01/2010 Cough [R05.9] 06/01/2010 Type II diabetes mellitus with renal manifestat*12/20/2006 Obesity, Class III, BMI 40-49.9 (morbid obesity*11/09/2008 CKD (chronic kidney disease) stage 4, (more content not included)... [facility] 10-10-2023 Telephone encounter Note Ezra notified. Paul Alcaraz MA [facility] 10-10-2023 Miscellaneous Notes Ezra notified. Paul Alcaraz MA [facility] extension. DANNY Munguia @ [facility] calling with request for order to extend PT. Physical Therapy will see patient 1 x/week for four more weeks for gait, mobility and balance. If agree, may leave message on #[phone]. Erika Barahona, SYLVAIN documented in this encounter [facility] 10-10-2023 Telephone encounter Note [facility] PT extension. [facility] 10-09-2023 Telephone encounter Note DANNY Munguia @ [facility] calling with request for order to extend PT. Physical Therapy will see patient 1 x/week for four more weeks for gait, mobility and balance. If agree, may leave message on #[phone]. Erika Barahona RN [facility] 09-30-2023 Note HNO ID: [id number] Author: MALISSA MADISON RN Service: ? Author Type: Registered Nurse Type: Progress Notes Filed: 09/30/2023 14:27 Note Text: TRANSITION CARE MANAGEMENT (TCM) FOLLOW-UP NOTE Provider Action/FYI TCM OON follow up Patient identified by name and date of : YES Spoke to patient Discharge Network Status: Pdd-ca-Vqqzhex (OON) Discharge Summary: Pt dc'd from [facility] [facility] 09/10 Admitted for chest pain Hospital Course 78-year-old female with past medical history of CHF, DM 2 with CKD 4, hypertension, neuropathy, depression, and hypertension who presents to the ED with chief complaint of chest pain. Serial troponins were slightly elevated but at patient's baseline. EKG showed no acute findings. Chest x-ray revealed history of cardiomegaly but no acute cardiopulmonary process. Aspirin 324 mg were provided in the ED. Patient was chest pain and shortness of breath free. She was admitted for further evaluation and treatment of her chest pain. Patient reports she was awakened from her sleep due to sharp stabbing left chest pain. There were no associated symptoms with this. She had no acute illnesses and at her baseline status prior to this episode. She called her neighbor who came and spoke with her and decided she should call EMS and get transported to the hospital. Currently she is awake oriented in no acute distress. No chest pain, dizziness, palpitations, or dizziness. No leg swelling no abdominal pain, no other complaints. Was seen by cardiology and is status post cardiac cath that showed EF of 30 to 35% and nonobstructive coronary artery disease. Patient had VQ scan done that shows low probability of PE. Cardiology restarted Lasix 20 mg daily. Patient had lower extremity duplex done that was negative for DVT. Patient to resume home oxygen use 3 L at at bedtime. Patient to keep existing appointment with Dr. Antoine for tomorrow 09/11. Patient existing appoint with nephrology in [place] for Saturday. Patient to follow-up with PCP in 2 weeks. Patient is in fair condition to discharge home with [facility] care. Resume home meds. No new medications are prescribed Concerns/updates : Pt states she was doing OK , then fell on 09/13 at home - Was seen 09/22 for PCP followup . right hip xray negative for fracture, pt states hip pain is slowly improving and using a heating pad. Lives alone - states sons and neighbors check on her often, has a cleaning lady. Has [facility]- had therapy yesterday and BP was slightly increased - ??/ 80's . Pt unsure of exact BP. Pt did mention she has been out of her Hydralazine for a day - thought she had requested a refill with [facility] but having difficulty reaching them. Pt states she has a f/u call on 10/01 with her pharmacist Reese Brock- she requests a message sent to her about the Hydralazine . Registered Occupational Therapist plan for next outreach: TCM will continue to follow. DEVYN Education Ordered -: No Malissa Madison RN September 30, 2023 2:08 PM [facility] 09-30-2023 History of Present illness Narrative TRANSITION CARE MANAGEMENT (TCM) FOLLOW-UP NOTE Provider Action/FYI TCM OON follow up Patient identified by name and date of : YES Spoke to patient Discharge Network Status: Kzo-[id number] (OON) Discharge Summary: Pt dc'd from [facility] 09/10 Admitted for chest pain Hospital Course 78-year-old female with past medical history of CHF, DM 2 with CKD 4, hypertension, neuropathy, depression, and hypertension who presents to the ED with chief complaint of chest pain. Serial troponins were slightly elevated but at patient's baseline. EKG showed no acute findings. Chest x-ray revealed history of cardiomegaly but no acute cardiopulmonary process. Aspirin 324 mg were provided in the ED. Patient was chest pain and shortness of breath free. She was admitted for further evaluation and treatment of her chest pain. Patient reports she was awakened from her sleep due to sharp stabbing left chest pain. There were no associated symptoms with this. She had no acute illnesses and at her baseline status prior to this episode. She called her neighbor who came and spoke with her and decided she should call EMS and get transported to the hospital. Currently she is awake oriented in no acute distress. No chest pain, dizziness, palpitations, or dizziness. No leg swelling no abdominal pain, no other complaints. Was seen by cardiology and is status post cardiac cath that showed EF of 30 to 35% and nonobstructive coronary artery disease. Patient had VQ scan done that shows low probability of PE. Cardiology restarted Lasix 20 mg daily. Patient had lower extremity duplex done that was negative for DVT. Patient to resume home oxygen use 3 L at at bedtime. Patient to keep existing appointment with Dr. Antoine for tomorrow 09/11. Patient existing appoint with nephrology in [place] for Saturday. Patient to follow-up with PCP in 2 weeks. Patient is in fair condition to discharge home with [facility] care. Resume home meds. No new medications are prescribed Concerns/updates : Pt states she was doing OK , then fell on 09/13 at home - Was seen 09/22 for PCP followup . right hip xray negative for fracture, pt states hip pain is slowly improving and using a heating pad. Lives alone - states sons and neighbors check on her often, has a cleaning lady. Has [facility]- had therapy yesterday and BP was slightly increased - ??/ 80's . Pt unsure of exact BP. Pt did mention she has been out of her Hydralazine for a day - thought she had requested a refill with [facility] but having difficulty reaching them. Pt states she has a f/u call on 10/01 with her pharmacist Reese Brock- she requests a message sent to her about the Hydralazine . Registered Occupational Therapist plan for next outreach: TCM will continue to follow. DEVYN Education Ordered -: No Malissa Madison RN September 30, 2023 2:08 PM documented in this encounter [facility] 09-30-2023 Note HNO ID: [id number] Author: TESSA BROCK RPh Service: ? Author Type: Pharmacist Type: Progress Notes Filed: 10/01/2023 12:21 Note Text: Noted. Per dispense history, hydralazine last filled 09/28/23 for 90 day supply for 30 day supply. Will call to inform patient; refill likely on its way from mailorder pharmacy. Tessa Brock PharmD, JEFERSON Primary Care Clinical Wine And Spirits Clerk [facility] 09-30-2023 Note HNO ID: [id number] Author: TESSA BROCK RPh Service: ? Author Type: Pharmacist Type: Progress Notes Filed: 10/01/2023 16:02 Note Text: Called patient to inform of below message; unable to reach. Left VM for patient. Tessa Brock PharmD, BCACP Primary Care Clinical Wine And Spirits Clerk [facility] 09-30-2023 Note Patient Outreach ([facility] VAL ERICKSON ([id number]) 1945 F Date Time Provider Department 09/30/23 MALISSA MADISON During your visit today, we recorded the following information about you: Tessa Brock RPh 10/01/2023 12:21 PM Addendum Noted. Per dispense history, hydralazine last filled 09/28/23 for 90 day supply for 30 day supply. Will call to inform patient; refill likely on its way from mailorder pharmacy. Tessa Brock PharmD, JEFERSON Primary Care Clinical Wine And Spirits Clerk Tessa Brock RPh 10/01/2023 4:02 PM Signed Called patient to inform of below message; unable to reach. Left VM for patient. Tessa Brock PharmD, JEFERSON Primary Care Clinical Wine And Spirits Clerk Malissa Madison, SYLVAIN 09/30/2023 2:27 PM Signed TRANSITION CARE MANAGEMENT (TCM) FOLLOW-UP NOTE Provider Action/FYI TCM OON follow up Patient identified by name and date of : YES Spoke to patient Discharge Network Status: [id number] (OON) Discharge Summary: Pt dc'd from [facility] 09/10 Admitted for chest pain Hospital Course 78-year-old female with past medical history of CHF, DM 2 with CKD 4, hypertension, neuropathy, depression, and hypertension who presents to the ED with chief complaint of chest pain. Serial troponins were slightly elevated but at patient's baseline. EKG showed no acute findings. Chest x-ray revealed history of cardiomegaly but no acute cardiopulmonary process. Aspirin 324 mg were provided in the ED. Patient was chest pain and shortness of breath free. She was admitted for further evaluation and treatment of her chest pain. Patient reports she was awakened from her sleep due to sharp stabbing left chest pain. There were no associated symptoms with this. She had no acute illnesses and at her baseline status prior to this episode. She called her neighbor who came and spoke with her and decided she should call EMS and get transported to the hospital. Currently she is awake oriented in no acute distress. No chest pain, dizziness, palpitations, or dizziness. No leg swelling no abdominal pain, no other complaints. Was seen by cardiology and is status post cardiac cath that showed EF of 30 to 35% and nonobstructive coronary artery disease. Patient had VQ scan done that shows low probability of PE. Cardiology restarted Lasix 20 mg daily. Patient had lower extremity duplex done that was negative for DVT. Patient to resume home oxygen use 3 L at at bedtime. Patient to keep existing appointment with Dr. Antoine for tomorrow 09/11. Patient existing appoint with nephrology in [place] for Saturday. Patient to follow-up with PCP in 2 weeks. Patient is in fair condition to discharge home with [facility] care. Resume home meds. No new medications are prescribed Concerns/updates : Pt states she was doing OK , then fell on 09/13 at home - Was seen 09/22 for PCP followup . right hip xray negative for fracture, pt states hip pain is slowly improving and using a heating pad. Lives alone - states sons and neighbors check on her often, has a cleaning lady. Has [facility]- had therapy yesterday and BP was slightly increased - ??/ 80's . Pt unsure of exact BP. Pt did mention she has been out of her Hydralazine for a day - thought she had requested a refill with [facility] but having difficulty reaching them. Pt states she has a f/u call on 10/01 with her pharmacist Reese Brock- she requests a message sent to her about the Hydralazine . Registered Occupational Therapist plan for next outreach: TCM will continue to follow. DEVYN Education Ordered -: Akanksha Madison RN September 30, 2023 2:08 PM Allergies As of Date: 09/30/2023 Noted Allergy Reaction RYBELSUS (SEMAGLUTIDE) 07/10/2023 5 - Intolerance Comments: Uncontrollable indigestion LEVAQUIN (LEVOFLOXACIN) 12/29/2004 Comments: itching,diarrhea,dausea,burning skin SEASONAL ALLERGIES 08/19/2014 14 - Other: See Comments Comments: Sinus SULFA (SULFONAMIDE ANTIBIOTICS) 12/29/2004 Comments: rash and hives Date Reviewed: 09/23/2023 Reviewed by: Kacy Mary, VISUAL DISPLAY MANAGER.COCONUT COOKER - Fully Assessed Reason for Visit: Transition Of Care [4074] Cmt: TCM / OON followup Prescriptions as of 10/01/2023 - venlafaxine ER (EFFEXOR XR) 75 mg 24 hr capsule Take 1 capsule by mouth once daily. - gabapentin (NEURONTIN) 300 mg capsule Take 1 capsule by mouth two times a day for 180 days. - empagliflozin (JARDIANCE) 10 mg tablet Take 1 tablet by mouth once daily. Prescribed by ballistics teacher - insulin glargine (LANTUS SOLOSTAR U-100 INSULIN) 100 unit/mL (3 mL) Inject 48 Units subcutaneously daily at bedtime. - furosemide (LASIX) 20 mg tablet Take 1 tablet by mouth once daily. Take an extra 20 mg tablet daily as needed - calcitriol (ROCALTROL) 0.5 mcg capsule Take 0.5 mcg by mouth. - clotrimazo (more content not included)... [facility] 09-23-2023 Telephone encounter Note Left detailed message on [employer] VM. [facility] 09-23-2023 Miscellaneous Notes Left detailed message on secure VM. ----- Message from Kacy Mary APRN.CNP sent at 09/23/2023 11:03 AM EDT ----- Please let the patient know the x-ray was negative for fracture. Call office in 2 weeks if pain does not improve or sooner if any worsening Kacy Mary APRN.CNP documented in this encounter [facility] 09-23-2023 Telephone encounter Note ----- Message from Kacy Mary APRN.COCONUT COOKER sent at 09/23/2023 11:03 AM EDT ----- Please let the patient know the x-ray was negative for fracture. Call office in 2 weeks if pain does not improve or sooner if any worsening Kacy Mary APRN.COCONUT COOKER [facility] 09-23-2023 History of Present illness Narrative Radiology Service Progress Note PATIENT NAME: Val Erickson DATE OF SERVICE: September 23, 2023 TIME: 10:50 AM PATIENT IDENTITY VERIFICATION COMPLETED USING TWO (2) IDENTIFIERS: Name and Date of confirmed by patient verbally. FALL SCREENING: Has the patient had 2 falls in the last year or 1 fall with injury or currently using an Ambulatory Assistive Device (Walker, Cane, Wheelchair, Crutches, etc.)? Yes, Patient High Risk for Falls What interventions were put in place to prevent falls during this visit? Offered Assistance with Transfers/Clothing, Instructed Patient to Remain Seated (Not on Exam Table) Until Exam, and Increased Observations by Caregivers PATIENT GENDER DATA: Female. status: : No status: NO. PATIENT RELEVANT IMPLANT DATA REVIEWED: Yes PATIENT PRESENTS WITH AN IMPLANTABLE OR ATTACHED VAT TENDER: No RADIOLOGY DEPARTMENT: General X-ray: Exam(s) Completed: Pelvis X-Ray: Pelvis with Hip Right PERIPHERAL IV DATA: Not applicable SIGNED BY: RT Brian(Liliana) September 23, 2023 10:50 AM documented in this encounter [facility] 09-23-2023 Note HNO ID: [id number] Author: SHON LINK RT(R) Service: ? Author Type: Smoking Pipe Coater Type: Progress Notes Filed: 09/23/2023 10:50 Note Text: Radiology Service Progress Note PATIENT NAME: Val Erickson DATE OF SERVICE: September 23, 2023 TIME: 10:50 AM PATIENT IDENTITY VERIFICATION COMPLETED USING TWO (2) IDENTIFIERS: Name and Date of confirmed by patient verbally. FALL SCREENING: Has the patient had 2 falls in the last year or 1 fall with injury or currently using an Ambulatory Assistive Device (Walker, Cane, Wheelchair, Crutches, etc.)? Yes, Patient High Risk for Falls What interventions were put in place to prevent falls during this visit? Offered Assistance with Transfers/Clothing, Instructed Patient to Remain Seated (Not on Exam Table) Until Exam, and Increased Observations by Caregivers PATIENT GENDER DATA: Female. status: : No status: NO. PATIENT RELEVANT IMPLANT DATA REVIEWED: Yes PATIENT PRESENTS WITH AN IMPLANTABLE OR ATTACHED VAT TENDER: No RADIOLOGY DEPARTMENT: General X-ray: Exam(s) Completed: Pelvis X-Ray: Pelvis with Hip Right PERIPHERAL IV DATA: Not applicable SIGNED BY: RT Brian(Liliana) September 23, 2023 10:50 AM [facility] 09-23-2023 Instructions Kacy Mary APRN.[facility] - 09/23/2023 9:26 AM EDT Screening schedule The following prevention plan is recommended: RSV Vaccine(1 - 1-dose 60+ series) Never done WHAT YOU CAN DO TO PREVENT FALLS Many falls can be prevented. By making some changes, you can lower your chances of falling. Four things YOU can do to prevent falls for you* and your caregiver 1. Begin a regular exercise program Exercise is one of the most important ways to lower your chances of falling. It makes you stronger and helps you feel better. Exercises that improve balance and coordination (like Jose Chi) are the most helpful. Lack of exercise leads to weakness and increases your chances of falling. Ask your doctor or health care provider about the best type of exercise program for you. 2. Have your health care provider review your medicines Have your doctor or pharmacist review all the medicines you take, even hhak-udb-uzsaary medicines. As you get older, the way medicines work in your body can change. Some medicines, or combinations of medicines, can make you sleepy or dizzy and can cause you to fall. 3. Have your vision checked Have your eyes checked by an eye doctor at least once a year. You may be wearing the wrong glasses or have a condition like glaucoma or cataracts that limits your vision. Poor vision can increase your chances of falling. 4. Make your home safer About half of all falls happen at home. To make your home safer: Remove things you can trip over (like papers, books, clothes, and shoes) from stairs and places where you walk. Remove small throw rugs or use double-sided tape to keep the rugs from slipping. Keep items you use often in cabinets you can reach easily without using a step stool. Have grab bars put in next to your toilet and in the tub or shower. Use non-slip mats in the bathtub and on shower floors. Improve the lighting in your home. As you get older, you need brighter lights to see well. Hang light-weight curtains or shades to reduce glare. Have handrails and lights put in on all staircases. Wear shoes both inside and outside the house. Avoid going barefoot or wearing slippers. For more information, contact: Centers for Disease Control and Prevention www.cdc.gov/injury * This information may not apply if you have certain medical conditions. documented in this encounter [facility] 09-23-2023 Note HNO ID: [id number] Author: KACY MARY APRN.JERRY Service: ? Author Type: Nurse Practitioner Type: Progress Notes Filed: 09/23/2023 10:14 Note Text: Val Erickson is a 78 year old female here for a Medicare wellness visit. Medicare Health Risk Assessment General Health Good Exercise: Minutes/Day 0 min Exercise: Days/Week 0 days Alcohol: Daily Use Never Alcohol: Drinks/Day Patient does not drink Alcohol: 6 or more drinks Never Feel off balance Yes Concerns: Teeth/Dentures No Concerns: Sexual function No Troubled by feelings None of the above Frequency: Eating healthy diet Several days ADLs requiring help Cooking; Driving; Grocery shopping; Housework Safety precautions in home/vehicle Yes Smoke, vape, chews tobacco No Difficulty hearing No Difficulty seeing No Current Providers Specialists: I have reviewed specialist-related care of the patient in the medical record. Current care team: Patient Care Team: Neel Turpin MD as PCP - Tessa Blakely RPh as Pharmacist (Pharmacy) [facility] ophthalmology Outside specialists seen: Renal-Dr. Louise, Cardiology-Dr. Wayne, Podiatry-Dr. Hicks ([facility]), plate embosser- Dr. Walter Medical/Family history review Reviewed and updated problem list, medical/surgical/family/social history, medications, and allergies. Opioid use review Opioid Medications (last 90 days) 09/11/2023 Opioid Medications hydrocodone/acetaminophen 1 tablet, ORAL, EVERY 6 HOURS NEEDED, Until 09/11/23 at 1353, pain - severe (7-10), first line -Discontinued tramadol HCl 50 mg, ORAL, Until 09/11/23 at 1353 -Discontinued Details Hospital medication Anxiety/Depression screening PHQ-2 Score: 4 (Higher risk for depression. PHQ-9 Recommended) PAULA-2 Score: 0 (Lower risk for anxiety) Recommendation: medication management Cognitive screening Mini Cog Score: 3 Cognitive screening reviewed and No further action needed (score 3-5). Functional Observation Was the patient's Timed Up AND Go test unsteady or ? 12 seconds? Yes Advance Care Planning Patient was not able to provide a surrogate decision maker or written advance directives Measurements BP 118/78 Pulse 87 Resp 18 Wt 0 lb (0.0kg) SpO2 93% Vision Screening: Follows with optometry/ophthalmology Assessment/Plan Medicare annual wellness visit, subsequent (Z00.00) - Counseled on healthy diet and regular exercise - Fall avoidance information provided - Personalized prevention plan provided - Discussed need for and benefit of weight loss. BMI 0.00 kg/(m2) Additional Concerns The following concerns were also discussed with the patient: Patient states she fell about one week ago, landed on her right hip on the hard floor. She had been standing and reaching forward for her walker when she fell. Right hip pain is posterior. Aggravated by weight bearing activities. Denies any other injuries from the fall. Taking Tylenol for pain without much relief. Diabetes: Home blood sugar readings: fasting typically in [id number] Hypoglycemia: No She is compliant with medication(s) and is tolerating med(s) without any side effects. Increased thirst: No Urinary frequency: No Nocturia: No Fatigue: No Unintentional weight loss: No Blurred vision: No Numbness, tingling or pain in extremities: No Ulcers or sores on feet: No Last Ophthalmology exam: within the past 12 months Patient's last HgA1C : Hemoglobin A1C (%) Date Value 05/19/2018 6.5 02/18/2012 6.4 Hemoglobin A1C (POCT) (%) Date Value 05/01/2023 8.3 01/04/2023 12.4 depression: Patient is currently taking Effexor 37.5 mg x two years Feels medication is working well: no, lately has been feeling more down and depressed along with anhedonia Side effects: None Denies suicidal thoughts or plan. BP 118/78 Pulse 87 Resp 18 SpO2 93% Physical Exam Vitals reviewed. Constitutional: Appearance: Normal appearance. Musculoskeletal: Right hip: Tenderness (greater trochanter) present. No deformity. Comments: Unable to complete full hip evaluation due to pain and mobility issues Skin: General: Skin is warm and dry. Neurological: Mental Status: She is alert. Psychiatric: Mood and Affect: Mood normal. ASSESSMENT/PLAN: 1. Medicare annual wellness visit, subsequent - ICD9: V70.0, ICD10: Z00.00 (primary diagnosis) See medicare wellness plan 2. Depressive disorder - ICD9: 311, ICD10: F32.A Worsening depression. Increase dose of Effexor to 75 mg daily - Reviewed benefits of sleep hygeine, diet and exercise - Follow-up in one month or sooner as needed - Instructed patient to contact office or [id number] after-hours promptly should condition worsen or any new symptoms appear. - Given information regarding 988 Suicide and Crisis Lifeline - VENLAFAXINE ER 75 MG CAPSULE,EXTENDED RELEASE 24 HR 3. Right hip pain - ICD9: 719.45, ICD10: M25.551 Secondary to fa (more content not included)... [facility] 09-23-2023 History of Present illness Narrative Images from the original note were not included. Val Erickson is a 78 year old female here for a Medicare wellness visit. Medicare Health Risk Assessment General Health Good Exercise: Minutes/Day 0 min Exercise: Days/Week 0 days Alcohol: Daily Use Never Alcohol: Drinks/Day Patient does not drink Alcohol: 6 or more drinks Never Feel off balance Yes Concerns: Teeth/Dentures No Concerns: Sexual function No Troubled by feelings None of the above Frequency: Eating healthy diet Several days ADLs requiring help Cooking; Driving; Grocery shopping; Housework Safety precautions in home/vehicle Yes Smoke, vape, chews tobacco No Difficulty hearing No Difficulty seeing No Current Providers Specialists: I have reviewed specialist-related care of the patient in the medical record. Current care team: Patient Care Team: Neel Turpin MD as PCP - Tessa Blakely [facility] as Pharmacist (Pharmacy) [facility] Outside specialists seen: Renal-Dr. Louise, Cardiology-Dr. Wayne, Podiatry-Dr. Hicks ([facility]), plate embosser- Dr. Walter Medical/Family history review Reviewed and updated problem list, medical/surgical/family/social history, medications, and allergies. Opioid use review Opioid Medications (last 90 days) 09/11/2023 Opioid Medications hydrocodone/acetaminophen 1 tablet, ORAL, EVERY 6 HOURS NEEDED, Until 09/11/23 at 1353, pain - severe (7-10), first line -Discontinued tramadol HCl 50 mg, ORAL, Until 09/11/23 at 1353 -Discontinued Details Hospital medication Anxiety/Depression screening PHQ-2 Score: 4 (Higher risk for depression. PHQ-9 Recommended) PAULA-2 Score: 0 (Lower risk for anxiety) Recommendation: medication management Cognitive screening Mini Cog Score: 3 Cognitive screening reviewed and No further action needed (score 3-5). Functional Observation Was the patient's Timed Up & Go test unsteady or ? 12 seconds? Yes Advance Care Planning Patient was not able to provide a surrogate decision maker or written advance directives Measurements BP 118/78 Pulse 87 Resp 18 Wt 0 lb (0.0kg) SpO2 93% Vision Screening: Follows with optometry/ophthalmology Assessment/Plan Medicare annual wellness visit, subsequent (Z.) - Counseled on healthy diet and regular exercise - Fall avoidance information provided - Personalized prevention plan provided - Discussed need for and benefit of weight loss. BMI 0.00 kg/(m^2) Additional Concerns The following concerns were also discussed with the patient: Patient states she fell about one week ago, landed on her right hip on the hard floor. She had been standing and reaching forward for her walker when she fell. Right hip pain is posterior. Aggravated by weight bearing activities. Denies any other injuries from the fall. Taking Tylenol for pain without much relief. Diabetes: Home blood sugar readings: fasting typically in [id number] Hypoglycemia: No She is compliant with medication(s) and is tolerating med(s) without any side effects. Increased thirst: No Urinary frequency: No Nocturia: No Fatigue: No Unintentional weight loss: No Blurred vision: No Numbness, tingling or pain in extremities: No Ulcers or sores on feet: No Last Ophthalmology exam: within the past 12 months Patient's last HgA1C : Hemoglobin A1C (%) Date Value 05/19/2018 6.5 02/18/2012 6.4 Hemoglobin A1C (POCT) (%) Date Value 05/01/2023 8.3 01/04/2023 12.4 depression: Patient is currently taking Effexor 37.5 mg x two years Feels medication is working well: no, lately has been feeling more down and depressed along with anhedonia Side effects: None Denies suicidal thoughts or plan. BP 118/78 Pulse 87 Resp 18 SpO2 93% Physical Exam Vitals reviewed. Constitutional: Appearance: Normal appearance. Musculoskeletal: Right hip: Tenderness (greater trochanter) present. No deformity. Comments: Unable to complete full hip evaluation due to pain and mobility issues Skin: General: Skin is warm and dry. Neurological: Mental Status: She is alert. Psychiatric: Mood and Affect: Mood normal. ASSESSMENT/PLAN: 1. Medicare annual wellness visit, subsequent - ICD9: V70.0, ICD10: Z00.00 (primary diagnosis) See medicare wellness plan 2. Depressive disorder - ICD9: 311, ICD10: F32.A Worsening depression. Increase dose of Effexor to 75 mg daily - Reviewed benefits of sleep hygeine, diet and exercise - Follow-up in one month or sooner as needed - Instructed patient to contact office or [id number] after-hours promptly should condition worsen or any new symptoms appear. - Given information regarding 988 Suicide and Crisis Lif[employer] - VENLAFAXINE ER 75 MG CAPSULE,EXTENDED RELEASE 24 HR 3. Right hip pain - ICD9: 719.45, ICD10: M25.551 Secondary to fall. - XR HIP GENERAL 3V PELV/AP/LAT RIGHT today to rule out fracture 4. Fall on hard surface - ICD9: E888.9, ICD10: W19.XXXA As above - XR HIP GENERAL 3V PELV/AP/LAT RIGHT 5. Type 2 diabetes mellitus with stage 4 chronic kidney disease, with long-term current use of insulin (HCC) - ICD9: 250.40, 585.4, V58.67, ICD10: E11.22, N18.4, Z79.4 - Controlled - Continue current medications - HEMOGLOBIN A1C (POC) 6. DDD (degenerative disc disease), thoracolumbar - ICD9: 722.51, ICD10: M51.35 Chronic back pain stable with Gabapentin - GABAPENTIN 300 MG CAPSULE Kacy Mayr APRN.[employer]OOK[employer] documented in this encounter [facility] 09-17-2023 Telephone encounter Note Noted. I signed face to face which was cardiology inpatient consult 09/09/23. [facility] 09-17-2023 Miscellaneous Notes Noted. I signed face to face which was cardiology inpatient consult 09/09/23. 1)Ezra with [facility], PT called to reports he saw pt today and will be seeing pt once this week, then 2 times a week for 2 weeks , then 1 time a week for 3 weeks. DX CHF, Kidney disease, diabetes. No call back needed. 2)Ezra reports pt had a fall Saturday09-13-23, no injury . No call back needed. Juli Figueredo LPN documented in this encounter [facility] 09-17-2023 Telephone encounter Note 1)Ezra with [facility], PT called to reports he saw pt today and will be seeing pt once this week, then 2 times a week for 2 weeks , then 1 time a week for 3 weeks. DX CHF, Kidney disease, diabetes. No call back needed. 2)Ezra reports pt had a fall Saturday09-13-23, no injury . No call back needed. Juli Figueredo LPN [facility] 09-16-2023 History of Present illness Narrative Subjective Patient ID: Val Erickson is a 78 y.o. female who presents for No chief complaint on file.. HPI Patient was seen today in the office and was accompanied by her son Rd. Patient has a history of moderate obstructive airway disease dyspnea on exertion and nocturnal hypoxemia. She unfortunately is also morbidly obese and her weight has been increasing since last time I saw her which was in March of this year. She apparently has tried some prescription medications for weight loss but has not been able to obtain certain ones and has been unable to tolerate others. Her current weight today was 262 pounds. Patient denies any cough or sputum production and no hemoptysis or wheezing. She denies having any dyspnea when using her walker. She has been on 2 L/min of oxygen at nighttime but had insisted that it be increased to 3 L even though her oxygen saturations were doing just fine on 2 L and today on room air at rest she was 96%. Patient is on Trelegy-100 daily. Review of Systems Patient denies any fever, chills, rhinitis or sore throat. Objective Physical Exam HEENT, examination of the oropharynx did not show any oral candidiasis. There is significant scalloping of her tongue. Pulmonary, lungs are clear to auscultation bilaterally. They are diminished however due to her morbid obesity. Cardio, heart sounds were regular rate and rhythm. Extremities, no cyanosis, clubbing or pretibial edema. Assessment/Plan Impressions: 1. Moderate obstructive airway disease. 2. History of nocturnal hypoxemia. 3. Dyspnea on exertion. 4. Morbid obesity. Recommendations: 1. Continue with pursuing her weight loss program. 2. I would reduce the oxygen at nighttime to 2 L. Her son who is with her discussed that they have checked that on her and her saturations have always been good. 3. Follow-up with the patient in 4 months. This note was transcribed using the [employer] Dictation system. There may be grammatical, punctuation, or verbiage errors that occur with voice recognition programs. Paula Walter DO 09/16/23 11:52 AM documented in this encounter [facility] Work Phone: 09-13-2023 Telephone encounter Note Patient calling to request lab orders be faxed to [facility]. Faxed as requested. Elizabeth Obando RN [facility] 09-13-2023 Miscellaneous Notes Patient calling to request lab orders be faxed to [facility]. Faxed as requested. Elizabeth Obando RN documented in this encounter [facility] 09-12-2023 History of Present illness Narrative Cardiology Subsequent Encounter Clinic Note Name: Val Erickson : 1945 CC: HFrEF Active Issues: 78-year-old female with a medical history of diabetes, neuropathy, hypertension, hyperlipidemia who was first seen at [facility] January 29, 2022 with shortness of breath that at that time was attributed to pneumonia. Creatinine was elevated between 1.9-2.2. Carries a diagnosis of moderate COPD and uses 2 L of oxygen at night. Cardiac issues include: ACC/AHA stage C HFrEF -Echocardiogram dated January 29, 2022 showed reduced EF to 30-35%. -Underwent dual-chamber implantable ICD October 03, 2022. Currently the patient notes that her shortness of breath is largely at baseline. Denies any orthopnea/PND. Takes Lasix 20 mg daily for lower extremity edema.. She is followed at the heart failure clinic. Was admitted to the hospital August 2023 in the setting of chest discomfort that woke her up from sleep. During this hospitalization she underwent a left/right heart catheterization that showed no obstructive CAD; and relatively normal filling pressures in her heart. Discharged on Lasix 20 mg daily and no other GDMT Past Medical History Past Medical History: Diagnosis Date CHF (congestive heart failure) (Multi) COPD (chronic obstructive pulmonary disease) (Multi) Diabetes mellitus (Multi) Hypertension Past Surgical History Past Surgical History: Procedure Laterality Date CARDIAC CATHETERIZATION N/A 09/09/2023 Procedure: Left And Right Heart Cath, With LV; Surgeon: Cesar Lucio MD; Location: [facility] Cardiac Link Assembler; Service: Cardiovascular; Laterality: N/A; CARDIAC DEFIBRILLATOR PLACEMENT Medications Current Outpatient Medications on File Prior to Visit Medication Sig Dispense Refill BD Ultra-Fine Orig Pen Needle 29 gauge x 1/2 needle docusate sodium (Colace) 100 mg capsule Take 1 capsule (100 mg) by mouth once daily. epoetin zari (Epogen) 10,000 unit/mL injection Inject 1.3 mL (13,000 Units) under the skin see administration instructions. EVERY 28 DAYS divoownqqza-dfriutjcd-xhsjexfz (Trelegy Ellipta) 100-62.5-25 mcg blister with device Inhale 1 puff once daily. furosemide (Lasix) 20 mg tablet Take 1 tablet (20 mg) by mouth once daily. May also take one tab po daily PRN gabapentin (Neurontin) 300 mg capsule Take 1 capsule (300 mg) by mouth 2 times a day. hydrALAZINE (Apresoline) 25 mg tablet Take 1 tablet (25 mg) by mouth 3 times a day. 90 tablet 11 insulin glargine (Lantus U-100 Insulin) 100 unit/mL injection Inject 55 Units under the skin once daily at bedtime. Take as directed per insulin instructions. Lactobacillus acidophilus (PROBIOTIC ACIDOPHILUS ORAL) Take 1 tablet by mouth once daily. metoprolol succinate XL (Toprol-XL) 50 mg 24 hr tablet Take 1 tablet (50 mg) by mouth once daily. Do not crush or chew. 90 tablet 3 simvastatin (Zocor) 40 mg tablet Take 1 tablet (40 mg) by mouth once daily. venlafaxine XR (Effexor-XR) 37.5 mg 24 hr capsule Take 1 capsule (37.5 mg) by mouth once daily. Take with food [DISCONTINUED] calcitriol (Rocaltrol) 0.5 mcg capsule Take 1 capsule (0.5 mcg) by mouth 3 (three) times a week. [DISCONTINUED] clotrimazole (Lotrimin) 1 % cream Apply topically 2 times a day. [DISCONTINUED] lidocaine 4 % patch Place 1 patch on the skin once daily. [DISCONTINUED] Mounjaro 2.5 mg/0.5 mL pen injector Inject 2.5 mg under the skin 1 (one) time per week. On Fridays [DISCONTINUED] sennosides (Senokot) 8.6 mg tablet Take 1 tablet (8.6 mg) by mouth once daily at bedtime. [DISCONTINUED] vit C/E/cuperic/zinc/lutein (PRESERVISION LUTEIN ORAL) Take by mouth. Preservision/lutein oral capsule. Take as directed Current Facility-Administered Medications on File Prior to Visit Medication Dose Route Frequency Provider Last Rate Last Admin [DISCONTINUED] acetaminophen (Tylenol) tablet 650 mg 650 mg oral q4h PRN FLORIN Harkins 650 mg at 09/11/23 1039 [DISCONTINUED] aspirin chewable tablet 325 mg 325 mg oral Once FLORIN Little, DNP [DISCONTINUED] budesonide (Pulmicort) 0.5 mg/2 mL nebulizer solution 0.5 mg 0.5 mg nebulization BID Yrn Saleh MD 0.5 mg at 09/11/23 0627 [DISCONTINUED] dextrose 50 % injection 12.5 g 12.5 g intravenous q15 min PRN FLORIN Harkins [DISCONTINUED] docusate sodium (Colace) capsule 100 mg 100 mg oral Daily Yrn Saleh MD 100 mg at 09/11/23 08 [DISCONTINUED] enoxaparin (Lovenox) syringe 30 mg 30 mg subcutaneous Daily FLORIN Harkins 30 mg at 09/11/23 0808 [DISCONTINUED] formoterol (Perforomist) 20 mcg/2 mL nebulizer solution 20 mcg 20 mcg nebulization BID Yrn Saleh MD 20 mcg at 09/11/23 0620 [DISCONTINUED] furosemide (Lasix) tablet 20 mg 20 mg oral Daily FLORIN Kuo 20 mg at 09/11/23 1210 [DISCONTINUED] gabapentin (Neurontin) capsule 300 mg 300 mg oral BID Yrn Saleh MD 300 mg at 09/11/23 0808 [DISCONTINUED] glucagon (Glucagen) injection 1 mg 1 mg intramuscular q15 min PRN FLORIN Harkins [DISCONTINUED] hydrALAZINE (Apresoline) tablet 25 mg 25 mg oral TID Yrn Saleh MD 25 mg at 09/11/23 08 [DISCONTINUED] HYDROcodone-acetaminophen (Stuart) 5-325 mg per tablet 1 tablet 1 tablet oral q6h PRN FLORIN Harkins 1 tablet at 09/11/23 0034 [DISCONTINUED] insulin glargine (Lantus) injection 55 Units 55 Units subcutaneous Nightly Gregorio Glez [facility] 55 Units at 09/10/23 204 [DISCONTINUED] insulin lispro (HumaLOG) injection 0-5 Units 0-5 Units subcutaneous TID FLORIN Harkins 1 Units at 09/10/23 1301 [DISCONTINUED] metoprolol succinate XL (Toprol-XL) 24 hr tablet 50 mg 50 mg oral Daily Yrn Saleh MD 50 mg at 09/11/23 0808 [DISCONTINUED] oxygen (O2) therapy inhalation Continuous PRN - O2/gases FLORIN Harkins 21 percent at 09/11/23 0953 [DISCONTINUED] polyethylene glycol (Glycolax, Miralax) packet 17 g 17 g oral Daily FLORIN Harkins [DISCONTINUED] simvastatin (Zocor) tablet 40 mg 40 mg oral Daily Yrn Saleh MD 40 mg at 09/11/23 0808 [DISCONTINUED] tiotropium (Spiriva Respimat) 2.5 mcg/actuation inhaler 2 puff 2 puff inhalation Daily Yrn Saleh MD 2 puff at 09/11/23 0953 [DISCONTINUED] traMADol (Ultram) tablet 50 mg 50 mg oral q12h PRN FLORIN Harkins [DISCONTINUED] venlafaxine XR (Effexor-XR) 24 hr capsule 37.5 mg 37.5 mg oral Daily Yrn Saleh MD 37.5 mg at 09/11/23 0808 Allergies Allergies Allergen Reactions Levofloxacin Rash Sulfacetamide Sodium Rash Social History Social History Tobacco Use Smoking status: Never Passive exposure: Current Smokeless tobacco: Never Substance Use Topics Alcohol use: Never Drug use: Never Family History Family History Problem Relation Name Age of Onset Cancer Mother Stroke Father Coronary artery disease Sister Stroke Brother Diabetes Son Cancer Son Physical Examination Vitals: BP 138/80 Pulse 96 Ht 1.6 m (5' 3) Wt 122 kg (268 lb) SpO2 95% BMI 47.47 kg/m General: awake, alert and oriented. No [...] Labs/Imaging/Procedures Lab Results Component Value Date HGB 9.5 (L) 09/10/2023 HGB 9.8 (L) 09/09/2023 HGB 12.0 09/28/2022 HGB 8.7 (L) 01/29/2022 HGB 9.4 (L) 01/28/2022 PLT 188 09/10/2023 WBC 8.0 09/10/2023 NA 134 (L) 09/11/2023 K 4.5 09/11/2023 CREATININE 2.02 (H) 09/11/2023 CREATININE 2.42 (H) 09/10/2023 CREATININE 2.21 (H) 09/09/2023 BUN 43 (H) 09/11/2023 CALCIUM 9.2 09/11/2023 INR 1.1 09/09/2023 BNP 309 (H) 12/12/2022 TROPHS 21 (H) 09/09/2023 TROPHS 20 (H) 09/09/2023 TROPHS 50 (H) 01/26/2022 TROPHS 42 (H) 01/26/2022 No echocardiogram results found for the past 12 months MUGA scan June 2022: Suggestion of bilateral ventricular enlargement with decreased global contractility and a left ventricular ejection fraction calculated to be 23%. Echocardiogram September 2022: 1. Left ventricular systolic function is moderately decreased with a 30-35% estimated ejection fraction. 2. There is global hypokinesis of the left ventricle with minor regional variations. 3. There is a trivial pericardial effusion 4. There is no evidence of cardiac tamponade. 5. RVSP within normal limits. Left/right heart catheterization August 2023 No obstructive CAD RA 4, RV 46/4, PA 45/13 (29), wedge 9, EDP 17, cardiac index 2.1 Impression 78-year-old female with a medical history of diabetes, neuropathy, hypertension, hyperlipidemia who was first seen at [facility] January 29, 2022 with shortness of breath that at that time was attributed to pneumonia. Creatinine was elevated between 1.9-2.2. Carries a diagnosis of moderate COPD and uses 2 L of oxygen at night. Cardiac issues include: ACC/AHA stage C HFrEF -Echocardiogram dated January 29, 2022 showed reduced EF to 30-35%. -Underwent dual-chamber implantable ICD October 03, 2022. Currently the patient notes that her shortness of breath is largely at baseline. Denies any orthopnea/PND. Takes Lasix 20 mg daily for lower extremity edema.. She is followed at the heart failure clinic. Was admitted to the hospital August 2023 in the setting of chest discomfort that woke her up from sleep. During this hospitalization she underwent a left/right heart catheterization that showed no obstructive CAD; and relatively normal filling pressures in her heart. Discharged on Lasix 20 mg daily and metoprolol 50 mg daily; no other GDMT Plan -Overall appears to be warm and dry on exam. Her shortness of breath is likely attributable to age/deconditioning and her diagnosis of COPD in addition to heart failure. -Limited in uptitration of GDMT by her renal function. Will add Jardiance 10 mg daily -I did explain to her that her lower extremity edema is more attributable to venous insufficiency given the normal right atrial pressures seen on a recent right heart catheterization. Instructed her to just take the Lasix 20 mg daily and try leg elevation/compression stockings. She expressed understanding and agreement. Further diuretic titration is done through the heart failure clinic; next appointment RTC 6 months Chris Antoine MD Advanced Heart Failure/Transplant Cardiology Cardio-Oncology [facility] documented in this encounter [facility] Work Phone: 09-11-2023 Telephone encounter Note Phoned [facility] and went over notes below from Kacy Mary NP with understanding. [facility] 09-11-2023 Miscellaneous Notes Phoned [facility] and went over notes below from Kacy Mary NP with understanding. Okay for orders, PCP will follow Kacy Mary APRN.[employer]OOK[employer] Uszi with [facility] calling to let you know pt is due to be discharged from [facility] in the next 24 to 48 hours. They ae calling to see if you will follow and sign for HH, nursing and PT. DX chest pain. Please advise Suzi with verbal orders. Juli Figueredo LPN documented in this encounter [facility] 09-11-2023 Telephone encounter Note Okay for orders, PCP will follow Kacy Mary APRN.JERRY [facility] 09-11-2023 Nurse Note Discharge Note: 09/11/2023 1352 AVS and pt responsibilities reviewed with pt, pt. son, and copy given. Heart cath, chest pain, education reviewed with pt, pt son, and information sheets given. Pt and son verbalizes understanding of instructions received, verbalizes understanding of when to seek medical attention, denies any home going or personal care needs. Denies further questions or concerns. Reviewed follow up appts with pt, pt son, and verbalizes understanding. Discharged via wheelchair to private car accompanied by RN, personal belongings taken with pt, no distress noted, no complaints voiced. Fredo NARAYAN [facility] 09-11-2023 Nurse Note Discharge Note: 09/11/2023 1352 AVS and pt responsibilities reviewed with pt, pt. son, and copy given. Heart cath, chest pain, education reviewed with pt, pt son, and information sheets given. Pt and son verbalizes understanding of instructions received, verbalizes understanding of when to seek medical attention, denies any home going or personal care needs. Denies further questions or concerns. Reviewed follow up appts with pt, pt son, and verbalizes understanding. Discharged via wheelchair to private car accompanied by RN, personal belongings taken with pt, no distress noted, no complaints voiced. Fredo RN COPD Education Patient Characteristics: Pt. Sitting up in chair on RA. Comorbidities: Exacerbation last year: Moderate: >= 2 exacerbations or >= 1 exacerbation leading to hospitalization Spirometry: Pt. Tried to do a PFT once and she was unable to do it. Date: FVC: ( %) FEV1: ( %) FEV1/FVC: ( %) Uses of Oxygen/CPAP/BIPAP: Pt. Wears 2L oxygen at HS pt stated My pulmonary Told me to increase it to 3l. Lincles his her home oxygen provider. Smoking status: Smoker: Never PPY: Quit date: Smoking cessation counseling: Booklet given: Pulmonary physician: Yes Name: Dr. Walter Date last seen: Pharmacotherapy: Maintenance medications Trelegy LABA, LAMA, LABA/LAMA, ICS/LABA, ICS/LAMA, ICS/LABA/LAMA, Name of the medication: Pt. Does not take any other breathing medications. Prednisone: No Theophylline: No Roflumilast: No Macrolides: No If not on maintenance meds: Consider LAMA or LAMA/LABA Consider ICS (if peripheral eosinophilia >300cells/microl, COPD exacerbation requiring hospitalization, >= 2 moderated COPD exacerbation, History of or concomitant asthma) If low inspiratory force or challenges with inhalers Consider Nebulizers Consider RESPIMAT COPD Education COPD patient education book: Yes, COPD Action Plan Inhaled medication teach-back: Yes DEVYN, other videos: Patient demonstrated understanding/teach back method: Yes Home Oxygen Evaluation: Pt. Is at her baseline for home o2 Pulmonary Rehabilitation referral: Already attended: When: Info in COPD patient education book Vaccines Influenza: Pneumococcal: COVID 19: Pertussis: Recommendations: pt. States :My pulmonary Told me I don't have COPD. Pt. Does not have nay issues with COPD/breathing. Pt admitted to bed 319 from ED. Pt ambulated to bathroom with one assist. Pt is a little wobbly. documented in this encounter [facility] Work Phone: 09-11-2023 Hospital course Narrative Discharge Diagnosis Chest pain Issues Requiring Follow-Up Chest pain Discharge Meds Your medication list CONTINUE taking these medications Instructions Last Dose Given Next Dose Due BD Ultra-Fine Orig Pen Needle 29 gauge x 1/2 needle Generic drug: pen needle 1/2 Colace 100 mg capsule Generic drug: docusate sodium Epogen 10,000 unit/mL injection Generic drug: epoetin zari furosemide 20 mg tablet Commonly known as: Lasix gabapentin 300 mg capsule Commonly known as: Neurontin hydrALAZINE 25 mg tablet Commonly known as: Apresoline Take 1 tablet (25 mg) by mouth 3 times a day. Lantus U-100 Insulin 100 unit/mL injection Generic drug: insulin glargine metoprolol succinate XL 50 mg 24 hr tablet Commonly known as: Toprol-XL Take 1 tablet (50 mg) by mouth once daily. Do not crush or chew. PROBIOTIC ACIDOPHILUS ORAL simvastatin 40 mg tablet Commonly known as: Zocor Trelegy Ellipta 100-62.5-25 mcg blister with device Generic drug: lswlcwtpmvo-sflddiemp-lurrzrar venlafaxine XR 37.5 mg 24 hr capsule Commonly known as: Effexor-XR Test Results Pending At Discharge Pending Labs Order Current Status Vitamin B12 In process Hospital Course 78-year-old female with past medical history of CHF, DM 2 with CKD 4, hypertension, neuropathy, depression, and hypertension who presents to the ED with chief complaint of chest pain. Serial troponins were slightly elevated but at patient's baseline. EKG showed no acute findings. Chest x-ray revealed history of cardiomegaly but no acute cardiopulmonary process. Aspirin 324 mg were provided in the ED. Patient was chest pain and shortness of breath free. She was admitted for further evaluation and treatment of her chest pain. Patient reports she was awakened from her sleep due to sharp stabbing left chest pain. There were no associated symptoms with this. She had no acute illnesses and at her baseline status prior to this episode. She called her neighbor who came and spoke with her and decided she should call EMS and get transported to the hospital. Currently she is awake oriented in no acute distress. No chest pain, dizziness, palpitations, or dizziness. No leg swelling no abdominal pain, no other complaints. Was seen by cardiology and is status post cardiac cath that showed EF of 30 to 35% and nonobstructive coronary artery disease. Patient had VQ scan done that shows low probability of PE. Cardiology restarted Lasix 20 mg daily. Patient had lower extremity duplex done that was negative for DVT. Patient to resume home oxygen use 3 L at at bedtime. Patient to keep existing appointment with Dr. Antoine for tomorrow 09/11. Patient existing appoint with nephrology in [place] for Saturday. Patient to follow-up with PCP in 2 weeks. Patient is in fair condition to discharge home with [facility] health care. Resume home meds. No new medications are prescribed Pertinent Physical Exam At Time of Discharge Physical Exam General Appearance: AAO x 3, drowsy, not in acute distress Skin: skin color pink, warm, and dry; bruising noted to B/L arms Eyes : PERRL, EOM's intact ENT: mucous membranes pink and moist Neck: normocephalic Respiratory: lungs clear to auscultation anteriorly; no wheezing, rhonchi, or crackles. Heart: regular rate and rhythm. telemetry shows sinus rhythm Abdomen: Nondistended, positive bowel sounds x4, soft, nontender Extremities: non pitting edema Peripheral pulses: normal x4 extremities Neuro: alert, coherent and conversant, no focal motor deficits Outpatient Follow-Up Future Appointments Date Time Provider Department Center 09/12/2023 10:30 AM Chris Antoine MD [id number] [facility] 09/16/2023 11:20 AM Paula Walter DO [id number] [facility] 11/26/2023 11:00 AM [facility] [id number] [facility] 11/26/2023 11:30 AM CARDIOLOGY [facility] CARD[facility] HEART FAILURE [facility]INIC [id number] [facility] Tara Rollins APRN-[employer]ON[employer]OOKER documented in this encounter [facility] Work Phone: 09-11-2023 Telephone encounter Note Suzi with [facility] calling to let you know pt is due to be discharged from [facility] in the next 24 to 48 hours. They ae calling to see if you will follow and sign for HH, nursing and PT. DX chest pain. Please advise Suzi with verbal orders. Juli Figueredo LPN [facility] 09-11-2023 History of Present illness Narrative Per medical team, patient is medically appropriate for discharge today. Therapy Teacher met with patient at bedside to review discharge plan and Medicare IMM. Patient confirmed understanding and agreement with same. Though medical team has expressed concern about patient's ability to manage patient's needs at home, patient's mobility [facility] today per PT is 17, appropriate for home-going with adequate support. Patient insists that patient's apartment is small and, though patient is visually impaired, patient can manage well at home. Patient also states that patient's son is helping patient to be put on wait list for [facility] in [place], and that patient intends to move there when an apartment becomes available. SW to send updated notes and final orders to [facility] through [facility] when complete. Plan is for patient to discharge home today with son's support, and with new services to begin through [facility] pending confirmation of start of care. Care Transitions to follow and assist. JAG Calvillo Cardiology Inpatient Progress Note [facility] [place] ASSESSMENT AND PLAN Chest pain - Trop 20-21 - BNP 309 - EKG showing sinus rhythm and LBBB. 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 -chest pain not cardiac Heart Failure with reduced LV systolic function (LVEF 30-35%) / S/P ICD - Echo (10/04/2022): 1. Left ventricular systolic function is moderately decreased with a 30-35% estimated ejection fraction and global hypokinesis of the left ventricle with minor regional variations - daily weights, - Low sodium diet (2g). - 1500mL fluid restriction. - Strict I&Os. - GDMT limited by renal failure, serum creatinine >2 and eGFR <30. Continue Metoprolol succinate 50mg daily. -She is not grossly overloaded, she just some LE nonpitting edema. -Let's restart her Lasix 20 mg PO daily. She has a follow up with her resident medical officer on Saturday. -I believe she is appropriate for discharge today from a cardiac standpoint. - Follow up with Cardiology team as outpatient - has an appointment with Dr. Antoine tomorrow. Subjective She complains of SOB with exertion. Denies chest pain, palpitations, fever, chills, or syncope. Overall she states she feels pretty good. Objective: Telemetry Reviewed NSR Intake & Output Net IO Since Admission: 2,325 mL [09/11/23 1010] Today's Weight: Vitals: 09/10/23 0545 Weight: 120 kg (265 lb 3.4 oz) PHYSICAL EXAM Physical Exam Vitals and nursing note reviewed. Constitutional: General: She is not in acute distress. HENT: Head: Normocephalic and atraumatic. Mouth/Throat: Mouth: Mucous membranes are moist. Pharynx: Oropharynx is clear. Eyes: General: No scleral icterus. Pupils: Pupils are equal, round, and reactive to light. Cardiovascular: Rate and Rhythm: Normal rate and regular rhythm. Chest Wall: PMI is not displaced. Pulses: Normal pulses. Heart sounds: Normal heart sounds. No murmur heard. No friction rub. Pulmonary: Effort: Pulmonary effort is normal. Breath sounds: Normal breath sounds. Abdominal: General: Bowel sounds are normal. There is no distension. Palpations: Abdomen is soft. Tenderness: There is no abdominal tenderness. Musculoskeletal: General: No swelling. Normal range of motion. Cervical back: Normal range of motion and neck supple. Right lower leg: Edema present. Left lower leg: Edema present. Skin: General: Skin is warm and dry. Capillary Refill: Capillary refill takes less than 2 seconds. Findings: No rash. Neurological: General: No focal deficit present. Mental Status: She is alert. Psychiatric: Mood and Affect: Mood normal. Behavior: Behavior normal. Labs: CMP: Recent Labs 09/11/23 0542 09/10/23 0524 09/09/23 0512 05/14/23 1200 12/12/22 0850 NA 134* 137 138 137 134* K 4.5 4.5 4.2 4.7 4.4 CL 101 103 101 103 100 CO2 25 27 28 22 26 ANIONGAP 13 12 13 17 12 BUN 43* 46* 43* 38* 33* CREATININE 2.02* 2.42* 2.21* 2.05* 2.09* EGFR 25* 20* 22* 24* -- Recent Labs 01/27/22 0519 01/26/22 1221 ALBUMIN 3.6 3.6 ALKPHOS 44 45 ALT 17 18 AST 13 14 BILITOT 0.4 0.3 CBC: Recent Labs 09/10/23 0524 09/09/23 0512 09/28/22 1020 01/29/22 0459 01/28/22 0430 WBC 8.0 8.9 8.2 6.3 6.3 HGB 9.5* 9.8* 12.0 8.7* 9.4* HCT 31.8* 31.2* 36.2 27.6* 29.4* PLT 188 196 199 220 237 MCV 103* 100 97 98 98 COAG: Recent Labs 09/09/23 0954 10/03/22 1306 INR 1.1 1.0 DDIMERVTE 1,012* -- ABO: No results for input(s): ABO in the last 23512 hours. HEME/ENDO: Recent Labs 05/01/23 1041 01/04/23 1042 01/26/22 1221 08/09/21 1154 HGBA1C 8.3* 12.4* 7.3* 7.6* CARDIAC: Recent Labs 09/09/23 0617 09/09/23 0512 12/12/22 0850 04/13/22 1117 01/26/22 2118 01/26/22 1231 TROPHS 21* 20* -- -- 50* 42* BNP -- -- 309* 1,140* -- -- Recent Labs 09/09/23 0512 CHOL 87 HDL 37.0 TRIG 114 Inpatient Medications: Current Facility-Administered Medications: acetaminophen (Tylenol) tablet 650 mg, 650 mg, oral, q4h PRN, FLORIN Harkins, 650 mg at 09/10/23 0819 aspirin chewable tablet 325 mg, 325 mg, oral, Once, FLORIN Little, DNP budesonide (Pulmicort) 0.5 mg/2 mL nebulizer solution 0.5 mg, 0.5 mg, nebulization, BID, Yrn Saleh MD, 0.5 mg at 09/11/23 0627 dextrose 50 % injection 12.5 g, 12.5 g, intravenous, q15 min PRN, FLORIN Harkins docusate sodium (Colace) capsule 100 mg, 100 mg, oral, Daily, Yrn Saleh MD, 100 mg at 09/11/23 0808 enoxaparin (Lovenox) syringe 30 mg, 30 mg, subcutaneous, Daily, FLORIN Harkins, 30 mg at 09/11/23 0808 formoterol (Perforomist) 20 mcg/2 mL nebulizer solution 20 mcg, 20 mcg, nebulization, BID, Yrn Saleh MD, 20 mcg at 09/11/23 0620 [Held by provider] furosemide (Lasix) tablet 20 mg, 20 mg, oral, Daily, Yrn Saleh MD, 20 mg at 09/09/23 1056 gabapentin (Neurontin) capsule 300 mg, 300 mg, oral, BID, Yrn Saleh MD, 300 mg at 09/11/23 0808 glucagon (Glucagen) injection 1 mg, 1 mg, intramuscular, q15 min PRN, FLORIN Harkins hydrALAZINE (Apresoline) tablet 25 mg, 25 mg, oral, TID, Yrn Saleh MD, 25 mg at 09/11/23 0808 HYDROcodone-acetaminophen (Stuart) 5-325 mg per tablet 1 tablet, 1 tablet, oral, q6h PRN, FLORIN Harkins, 1 tablet at 09/11/23 0034 insulin glargine (Lantus) injection 55 Units, 55 Units, subcutaneous, Nightly, Gregorio Glez, [facility], 55 Units at 09/10/23 2041 insulin lispro (HumaLOG) injection 0-5 Units, 0-5 Units, subcutaneous, TID, FLORIN Harkins, 1 Units at 09/10/23 1301 metoprolol succinate XL (Toprol-XL) 24 hr tablet 50 mg, 50 mg, oral, Daily, Yrn Saleh MD, 50 mg at 09/11/23 0808 oxygen (O2) therapy, , inhalation, Continuous PRN - O2/gases, FLORIN Harkins, 21 percent at 09/11/23 0953 polyethylene glycol (Glycolax, Miralax) packet 17 g, 17 g, oral, Daily, FLORIN Harkins simvastatin (Zocor) tablet 40 mg, 40 mg, oral, Daily, Yrn Saleh MD, 40 mg at 09/11/23 0808 tiotropium (Spiriva Respimat) 2.5 mcg/actuation inhaler 2 puff, 2 puff, inhalation, Daily, 2 puff at 09/11/23 0953 AND [DISCONTINUED] fluticasone furoate-vilanteroL (Breo Ellipta) 100-25 mcg/dose inhaler 1 puff, 1 puff, inhalation, Daily, Yrn Saleh MD traMADol (Ultram) tablet 50 mg, 50 mg, oral, q12h PRN, FLORIN Harkins venlafaxine XR (Effexor-XR) 24 hr capsule 37.5 mg, 37.5 mg, oral, Daily, Yrn Saleh MD, 37.5 mg at 09/11/23 0808 VITALS Vitals: 09/11/23 0953 BP: Pulse: Resp: Temp: SpO2: 92% Thank you for this interesting clinical case and allowing me to participate in the care of this patient. Please reach me out if you have any questions or if you need any clarifications regarding the patient's care. Disclaimer: This note was dictated by speech recognition, and every effort has been made to prevent any error in train electronic technician, however minor errors may be present Gregory Gutierrez, MSN, VISUAL DISPLAY MANAGER-[employer], ACNPC-AG, CCRN Division of Cardiovascular Medicine [facility] and [facility] Physical Therapy Physical Therapy Evaluation Patient Name: Val Erickson Today's Date: 09/10/2023 Time Calculation Start Time: 1139 Stop Time: 1202 Time Calculation (min): 23 min Assessment/Plan Skilled PT intervention is indicated due to patient presents with deficits in bed mobility, transfers, gait, stair negotiation, strength, activity tolerance, and safety awareness. Patient globally weak and deconditioned. Recommend extended physical therapy intervention to improve strength, balance, mobility and reduce fall risk. Continue ambulation with FWW. PT Assessment PT Assessment Results: Decreased strength, Decreased endurance, Impaired balance, Decreased mobility, Decreased safety awareness, Pain, Impaired vision Rehab Prognosis: Good End of Session Communication: Bedside nurse End of Session Patient Position: Alarm on, Up in chair IP OR SWING BED PT PLAN Inpatient or Swing Bed: Inpatient PT Plan Treatment/Interventions: Bed mobility, Transfer training, Gait training, Balance training, Strengthening, Endurance training, Therapeutic exercise, Therapeutic activity, Home exercise program PT Plan: Ongoing PT PT Frequency: 5 times per week PT Discharge Recommendations: Moderate intensity level of continued care Subjective Current Problem: Patient Active Problem List Diagnosis Abnormal CXR CHF (congestive heart failure) (Multi) Chronic combined systolic and diastolic CHF, NYHA class 3 (Multi) Dyspnea on exertion Hypoxemia LBBB (left bundle branch block) Morbid obesity (Multi) Postoperative fever Renal dysfunction Hypertensive heart disease with acute on chronic systolic congestive heart failure (Multi) Type II diabetes mellitus with renal manifestations (Multi) Type 2 diabetes mellitus with diabetic neuropathy, unspecified (Multi) Type 2 diabetes mellitus with hyperglycemia (Multi) Syndrome of inappropriate secretion of antidiuretic hormone (Multi) Pseudophakia, both eyes Posterior capsule opacification Osteopenia Nonexudative age-related macular degeneration, bilateral, intermediate dry stage Muscle weakness (generalized) Iron deficiency anemia, unspecified Hyponatremia Hyperparathyroidism, secondary renal (Multi) Generalized osteoarthritis Essential hypertension Hyperlipidemia, unspecified DDD (degenerative disc disease), thoracolumbar Displaced trimalleolar fracture of right lower leg, subsequent encounter for closed fracture with routine healing Displaced fracture of medial malleolus of right tibia, subsequent encounter for closed fracture with routine healing Difficulty in walking, not elsewhere classified CKD (chronic kidney disease) stage 4, GFR 15-29 ml/min (Multi) Obstructive sleep apnea ICD (implantable cardioverter-defibrillator) in place Chest pain Chest pain, unspecified type General Visit Information: General Reason for Referral: impaired mobility;78-year-old female with past medical history of CHF, DM 2 with CKD 4, hypertension, neuropathy, depression, and hypertension who presents to the ED with chief complaint of chest pain. Serial troponins were slightly elevated but at patient's baseline. EKG showed no acute findings. Chest x-ray revealed history of cardiomegaly but no acute cardiopulmonary process. Referred By: Niki Family/Caregiver Present: No Co-Treatment: OT Co-Treatment Reason: to maximize pt safety Prior to Session Communication: Bedside nurse Patient Position Received: Up in chair, Alarm on General Comment: patient in chair, awake and agreeable to therapy; states her right side is hurting by her kidney and states it started hurting after she went down for a test today and had to have her arms overhead. States she may have pulled something with moving around for the testing Home Living: Home Living Type of Home: Apartment Lives With: Alone Home Layout: One level Home Access: Level entry Bathroom Shower/Tub: Walk-in shower Bathroom Toilet: Other (Comment) (toilet rails) Bathroom Equipment: Grab bars in shower, Shower chair with back Home Living Comments: patient has an adjustable bed but states she has currently been sleepiing in recliner Prior Level of Function: Prior Function Per Pt/Caregiver Report ADL Assistance: Independent Homemaking Assistance: (has cleaning lady and she also does her laundry) Ambulatory Assistance: (uses FWW inside and a stand up walker outside) Prior Function Comments: pt states she is indep in ADLs. pt has a cleaning lady that assists with housework and laundry. pt with poor vision and does not drive, therefor her son takes her to [employer] and assists with shopping. groceries are delivered. 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 Medical Precautions: Fall precautions Vital Signs: Vital Signs Heart Rate: 78 SpO2: 94 % Objective Pain: Pain Assessment Pain Assessment: 0-10 0-10 (Numeric) Pain Score: 7 Pain Type: Acute pain Pain Location: Abdomen Pain Orientation: Right Cognition: Cognition Overall Cognitive Status: Within Functional Limits General Assessments: Activity Tolerance Endurance: Decreased tolerance for upright activites Sensation Light Touch: No apparent deficits Strength Strength Comments: BLE grossly 4- to 4/5 Coordination Movements are Fluid and Coordinated: Yes Static Sitting Balance Static Sitting-Balance Support: Feet supported, Bilateral upper extremity supported Static Sitting-Level of Assistance: Independent Dynamic Standing Balance Dynamic Standing-Balance Support: Bilateral upper extremity supported Dynamic Standing-Balance: Turning Dynamic Standing-Comments: FWW, gait belt Functional Assessments: Bed Mobility Bed Mobility: No Transfers Transfer: Yes Transfer 1 Transfer From 1: Sit to, Stand to Transfer to 1: Stand, Sit Technique 1: Sit to stand, Stand to sit Transfer Device 1: Gait belt (bariatric FWW) Transfer Level of Assistance 1: Contact guard, Minimal verbal cues Trials/Comments 1: chair and toilet transfers (using rails to pull by toilet) Ambulation/Gait Training Ambulation/Gait Training Performed: Yes Ambulation/Gait Training 1 Surface 1: Level tile Device 1: Rolling walker Gait Support Devices: Gait belt Assistance 1: Contact guard Quality of Gait 1: Wide base of support, Diminished heel strike, Decreased step length (reliant on UE support) Comments/Distance (ft) 1: 38' Outcome Measures: [facility] Basic Mobility Turning from your back to your side while in a flat bed without using bedrails: A lot Moving from lying on your back to sitting on the side of a flat bed without using bedrails: A lot Moving to and from bed to chair (including a wheelchair): A lot Standing up from a chair using your arms (e.g. wheelchair or bedside chair): A little To walk in hospital room: A little Climbing 3-5 steps with railing: A lot Basic Mobility - Total Score: 14 Goals: Encounter Problems Encounter Problems (Active) PT Problem PT Goal 1 Start: 09/10/23 Expected End: 09/23/23 Val Erickson will transfer sit to and from stand using least restrictive assistive device SBA PT Goal 2 Start: 09/10/23 Expected End: 09/23/23 Val Erickson will demonstrate good safety awareness with transfers and mobility and with use of assistive device (proper hand placement). PT Goal 3 Start: 09/10/23 Expected End: 09/23/23 Val Erickson will ambulate 150 ft with assistive device , level surface, good balance, steady SBA PT Goal 4 Start: 09/10/23 Expected End: 09/23/23 Patient will participate in 30 min PT session without fatigue and 2 or less 1 min rest breaks. Pain - Adult Education Documentation Safety with mobility and transfers Occupational Therapy Evaluation Patient Name: Val Erickson Today's Date: 09/10/2023 Time Calculation Start Time: 1138 Stop Time: 1203 Time Calculation (min): 25 min 319/319-A Assessment IP OT Assessment OT Assessment: pt presents with deficits in strength, balance, activity tolerance, safety/judgement which affect ability to perform ADLs at [facility].Recommend skilled OT services in order to ensure safe transition home End of Session Patient Position: Alarm on, Up in chair Plan: Treatment Interventions: ADL retraining, Functional transfer training, UE strengthening/ROM, Endurance training, Equipment evaluation/education, Neuromuscular reeducation OT Frequency: 5 times per week OT Discharge Recommendations: Moderate intensity level of continued care Subjective Current Problem: 1. Chest pain, unspecified type Case Request Link Assembler: Left And Right Heart Cath, With LV Case Request Link Assembler: Left And Right Heart Cath, With LV Cardiac Catheterization Procedure Cardiac Catheterization Procedure 2. Chest pain due to myocardial ischemia, unspecified ischemic chest pain type Nuclear Stress Test 3. Type 2 diabetes mellitus with hyperglycemia, with long-term current use of insulin (Multi) Nuclear Stress Test 4. Essential hypertension Nuclear Stress Test 5. Acute coronary microvascular dysfunction (Multi) Nuclear Stress Test 6. Chest pain on breathing Lower extremity venous duplex bilateral Lower extremity venous duplex bilateral 7. Other chest pain Cardiac Catheterization Procedure 8. Localized edema Lower extremity venous duplex bilateral 9. Shortness of breath Lower extremity venous duplex bilateral General: General Reason for Referral: 78-year-old female with past medical history of CHF, DM 2 with CKD 4, hypertension, neuropathy, depression, and hypertension who presents to the ED with chief complaint of chest pain. Serial troponins were slightly elevated but at patient's baseline. EKG showed no acute findings. Chest x-ray revealed history of cardiomegaly but no acute cardiopulmonary process. Referred By: Niki Family/Caregiver Present: No Co-Treatment: PT Co-Treatment Reason: to maximize pt safety Prior to Session Communication: Bedside nurse Patient Position Received: Up in chair, Alarm on General Comment: pt up in chair with c/o right side pain. agreeable to assessment. Precautions: Medical Precautions: Fall precautions Pain: Pain Assessment Pain Assessment: 0-10 0-10 (Numeric) Pain Score: 7 Pain Location: Abdomen Pain Orientation: Right Objective Cognition: Overall Cognitive Status: Within Functional Limits Home Living: Type of Home: Apartment ([facility]) Lives With: Alone Home Layout: One level Home Access: Level entry Bathroom Shower/Tub: Walk-in shower Bathroom Toilet: Other (Comment) (toilet rails) Bathroom Equipment: Grab bars in shower, Shower chair with back Home Living Comments: pt has an adjustable bed but sleeps in recliner chair Prior Function: ADL Assistance: Independent Homemaking Assistance: Needs assistance Ambulatory Assistance: Independent (pt uses FWW inside the apt and a stand up walker outdoors) Prior Function Comments: pt states she is indep in ADLs. pt has a cleaning lady that assists with housework and laundry. pt with poor vision and does not drive, therefor her [place] [facility] [employer] and assists with shopping. groceries are delivered. ADL: Eating Assistance: Stand by Grooming Assistance: Stand by Bathing Assistance: Moderate UE Dressing Assistance: Minimal LE Dressing Assistance: Moderate Toileting Assistance with Device: Moderate Activity Tolerance: Endurance: Decreased tolerance for upright activites Bed Mobility/Transfers: Bed Mobility Bed Mobility: No Transfers Transfer: Yes Transfer 1 Technique 1: Stand to sit, Sit to stand Transfer Device 1: Walker, Gait belt Transfer Level of Assistance 1: Contact guard Trials/Comments 1: from recliner chair and on and off toilet with use of bilateral hand rails. Ambulation/Gait Training: Functional Mobility Functional Mobility Performed: Yes Functional Mobility 1 Surface 1: Level tile Device 1: Rolling walker Functional Mobility Support Devices: Gait belt Assistance 1: Contact guard Vision: Vision - Basic Assessment Current Vision: Other (Comment) Visual History: (pt reports poor vision and that she is practically blind) Sensation: Light Touch: No apparent deficits Strength: Strength Comments: KYLE 4/5 Outcome Measures: [facility] Daily Activity Putting on and taking off regular lower body clothing: A lot Bathing (including washing, rinsing, drying): A lot Putting on and taking off regular upper body clothing: A little Toileting, which includes using toilet, bedpan or urinal: A lot Taking care of personal grooming such as brushing teeth: A little Eating Meals: A little Daily Activity - Total Score: 15 EDUCATION: Education Documentation Body Mechanics, taught by Oriana Rojo OT at 09/10/2023 1:41 PM. Learner: Patient Readiness: Acceptance Method: Explanation, Demonstration Response: Demonstrated Understanding, Verbalizes Understanding, Needs Reinforcement Precautions, taught by Oriana Rojo OT at 09/10/2023 1:41 PM. Learner: Patient Readiness: Acceptance Method: Explanation, Demonstration Response: Demonstrated Understanding, Verbalizes Understanding, Needs Reinforcement ADL Training, taught by Oriana Rojo OT at 09/10/2023 1:41 PM. Learner: Patient Readiness: Acceptance Method: Explanation, Demonstration Response: Demonstrated Understanding, Verbalizes Understanding, Needs Reinforcement Education Comments No comments found. Goals: Encounter Problems Encounter Problems (Active) ADLs Patient will perform UB and LB bathing with minimal assist level of assistance. (Progressing) Start: 09/10/23 Expected End: 09/24/23 Patient with complete lower body dressing with minimal assist level of assistance donning all LE clothes with PRN adaptive equipment (Progressing) Start: 09/10/23 Expected End: 09/24/23 Patient will complete toileting including hygiene clothing management/hygiene with minimal assist level of assistance. (Progressing) Start: 09/10/23 Expected End: 09/24/23 MOBILITY Patient will perform Functional mobility with stand by assist level of assistance and least restrictive device in order to improve safety and functional mobility. (Progressing) Start: 09/10/23 Expected End: 09/24/23 Per medical team, patient is not yet medically appropriate for discharge today; will likely require another 24 to 48 hours in the hospital. Per ALLIANCES CONSULTANT/Monserrat, SW consult requested due to concerns for patient to manage patient's needs at home. Per TCC/Lynn's assessment, patient no longer drives, relies on patient's son for some assistance with IADLs, and patient is losing patient's eyesight. PT eval is still pending. - 1230: Therapy Teacher met with patient at bedside to review discharge plan. Patient asserted firmly that patient intends to return home upon discharge. Patient stated that patient has had stays in rehab facilities: [facility] where patient would never go back, as well as [facility] which was, better, but I'm not going back there either. Patient is agreeable to using the same [facility] agency that patient used after [facility] rehab stay, though this was 2 years ago, and patient cannot remember the name of the [facility] agency. Patient's PCP in [place] is Dr. Turpin. SW to phone same to attempt to determine name of patient's former [facility] agency. Patient also stated that patient's son has put patient's name on wait list for [facility] in [place] as patient's eyesight is failing due to macular degeneration, and patient acknowledges that patient will need more care in the future. - 1630: Per PT/Krystina, patient's current mobility AMPAC score is 14, more appropriate for skilled rehab than for home-going. Care Transitions to review same with patient, and with patient's son, pending patient's permission. - 1650: SW spoke with patient's PCP's office who was able to confirm that patient utilized [facility] in the past. SW to send referral to same, per patient's request. Patient's current plan is to return home alone when medically ready with patient's son to assist, and [facility] pending acceptance, confirmation of start of care, vs. SNF if patient agreeable to referrals to same, pending 3-midnight inpatient qualifying stay. Care Transitions to follow and assist. JAG Calvillo Val Erickson is a 78 y.o. female on day 1 of admission presenting with Chest pain. Subjective Patient sitting in chair complaining of right rib pain. States when she was having to lay still for the her VQ scan t aggravated her ribs and her arm. She reports over the last several weeks she has been feeling more short of breath with any exertion. She is currently 92% at rest on room air. She does have oxygen available at home and reports she has been using it more often. She no longer has left-sided chest pain. Objective Last Recorded Vitals BP 102/67 (BP Location: Left arm, Patient Position: Sitting) Pulse 79 Temp 36 C (96.8 F) (Temporal) Resp 20 Wt 120 kg (265 lb 3.4 oz) SpO2 92% Intake/Output last 3 Shifts: Intake/Output Summary (Last 24 hours) at 09/10/2023 1033 Last data filed at 09/10/2023 0851 Gross per 24 hour Intake 1480 ml Output 5 ml Net 1475 ml Admission Weight Weight: 118 kg (260 lb) (09/09/23 0455) Daily Weight 09/10/23 : 120 kg (265 lb 3.4 oz) Image Results Cardiac Catheterization Procedure [facility] [employer] [address] [place] [address] [phone], Cardiovascular Catheterization Report Patient Name: VAL ERICKSON Performing Physician: [id number] Cesar Lucio MD Study Date: 09/09/2023 Verifying Physician: [id number] Lucio MD MRN/PID: [id number] Hydrogenation Operator/Co-Scrub: Ordering Provider: [id number] MONSERRAT PRINCE Date of /Age: 11 1945 / 78 years Hydrogenation Operator: Gender: F Fellow: Surgeon: Study: Right and Left Heart Cath Indications: VAL ERICKSON is a 79 year old female who presents with hypertension, diabetes, dyslipidemia and a chest pain assessment of typical angina. Cardiomyopathy. Heart failure. Cardiac arrest: No. Procedure Description: After infiltration with 2% Lidocaine, the right radial artery was cannulated with a modified Seldinger technique. Subsequently a 5 Australian sheath was placed in the right radial artery. Selective coronary catheterization was performed using a 5 Fr catheter(s) exchanged over a guide wire to cannulate the coronary arteries. A 5 Fr [place] catheter was used for left and right coronary artery injections. Multiple injections of contrast were made into the left and right coronary arteries with angiograms recorded in multiple projections. Cardiac output was calculated via the Lydia method. After completion of the procedure, the arterial sheath was pulled and a TR Band Radial Compression Device was utilized to obtain patent hemostasis. Coronary Angiography: The coronary circulation is left dominant. Left Main Coronary Artery: The left main coronary artery is a normal caliber vessel. The left main arises normally from the left coronary sinus of Valsalva and bifurcates into the LAD and circumflex coronary arteries. The left main coronary artery showed a normal vessel. Left Anterior Descending Coronary Artery Distribution: The left anterior descending coronary artery is a normal caliber vessel. The LAD arises normally from the left main coronary artery. The LAD demonstrated a normal vessel. The 1st diagonal branch is a normal caliber vessel. The 1st diagonal branch showed a normal vessel. Circumflex Coronary Artery Distribution: The circumflex coronary artery is a normal caliber vessel. The circumflex arises normally from the left main coronary artery and terminates in the AV groove. The circumflex revealed ectasia and no significant disease or stenosis greater than 30%. The 1st obtuse marginal branch is a medium-sized caliber vessel. The 1st obtuse marginal branch showed a normal vessel. The 2nd obtuse marginal branch is a normal caliber vessel. The 2nd obtuse marginal branch demonstrated a normal vessel. The left posterolateral branch is a normal caliber vessel. The left posterolateral branch showed a normal vessel. The left posterior descending artery is a normal caliber vessel. The left posterior descending artery showed a normal vessel. Right Heart Catheterization: Cardiac output was calculated via the Lydia method. Elevated left sided filling pressures with normal cardiac output. Elevated ventricular filling pressure. Preserved cardiac output at rest. Pulmonary arterial hypertension. PWP 9, PA 45/13 (29), RV 46/0/4, RA 4mmHg; LVeDP 17mmHg CO 4.5, CI 2.08. Right Coronary Artery Distribution: The right coronary artery is a small caliber vessel. The RCA arises normally from the right sinus of Valsalva. The RCA showed a normal vessel. Left Ventriculography: Global left ventricular systolic function was moderately to severely reduced. The LV ejection fraction was 30 to 35%. Complications: No in-lab complications observed. Cardiac Cath Post Procedure Notes: Post Procedure Diagnosis: Angiographically normal coronary arteries. Blood Loss: Estimated blood loss during the procedure was 0 mls. Specimens Removed: Number of specimen(s) removed: none. Recommendations: Maximize medical therapy. Agressive risk factor modification efforts. Follow-up with cardiology clinic. Medical management of coronary artery disease. CONCLUSIONS: 1. Left coronary artery system (LCx) dominance. 2. Non-obstructive CAD. 3. Ectasia LCx. 4. Mod-severely reduced LV systolic function. 5. PWP 9, PA 45/13 (29), RV 46/0/4, RA 4mmHg; LVeDP 17mmHg. 6. CO 4.5, CI 2.08. ICD 10 Codes: Other chest pain-R07.89 CPT Codes: Right & Left Heart Cath w/ventriculography (RHC)([facility])-50542; Moderate Sedation Services initial 15 minutes patient >5 years-[id number]; Moderate Sedation Services 1st additional 15 minutes patient >5 years-[id number] Cesar Lucio MD Performing Physician Final NM Lung Perfusion Narrative: Interpreted By: Paula Paredes, STUDY: NM LUNG PERFUSION; 09/10/2023 7:49 am INDICATION: Signs/Symptoms:chest pain. COMPARISON: None. ACCESSION NUMBER(S): [id number] ORDERING CLINICIAN: MONSERRAT PRINCE TECHNIQUE: DIVISION OF NUCLEAR MEDICINE PERFUSION LUNG SCAN Multiple perfusion images of the lungs were obtained after the intravenous administration of 4.4 mCi of Tc-99m MAA. SPECT CT images of the lungs were also obtained. FINDINGS: Perfusion images demonstrate heterogeneity without evidence of wedge-shaped abnormalities to suggest acute pulmonary embolism. Impression: Low probability of acute pulmonary embolism. Images were interpreted at [facility]. Signed by: Paula Paredes 09/10/2023 7:54 AM Dictation workstation: [id number] Physical Exam Constitutional: General: She is not in acute distress. Appearance: She is well-developed, obese HENT: Head: Normocephalic and atraumatic. Eyes: Conjunctiva/sclera: Conjunctivae normal. Cardiovascular: Rate and Rhythm: Normal rate and regular rhythm. Heart sounds: No murmur heard. Left chest with pacemaker/defibrillator and port Pulmonary: Effort: Pulmonary effort is normal. No respiratory distress. Breath sounds: Normal breath sounds. Abdominal: Palpations: Abdomen is soft. Tenderness: There is no abdominal tenderness. Musculoskeletal: General: No swelling. Cervical back: Neck supple. Skin: General: Skin is warm and dry. Capillary Refill: Capillary refill takes less than 2 seconds. Neurological: Mental Status: She is alert. Psychiatric: Mood and Affect: Mood colton Relevant Results Results for orders placed or performed during the hospital encounter of 09/09/23 (from the past 24 hour(s)) POCT GLUCOSE Result Value Ref Range POCT Glucose 161 (H) 74 - 99 mg/dL Lower extremity venous duplex bilateral Result Value Ref Range BSA 2.32 m2 POCT GLUCOSE Result Value Ref Range POCT Glucose 112 (H) 74 - 99 mg/dL POCT GLUCOSE Result Value Ref Range POCT Glucose 116 (H) 74 - 99 mg/dL POCT GLUCOSE Result Value Ref Range POCT Glucose 214 (H) 74 - 99 mg/dL POCT GLUCOSE Result Value Ref Range POCT Glucose 117 (H) 74 - 99 mg/dL CBC Result Value Ref Range WBC 8.0 4.4 - 11.3 x10*3/uL nRBC 0.0 0.0 - 0.0 /100 WBCs RBC 3.08 (L) 4.00 - 5.20 x10*6/uL Hemoglobin 9.5 (L) 12.0 - 16.0 g/dL Hematocrit 31.8 (L) 36.0 - 46.0 % MCV 103 (H) 80 - 100 fL MCH 30.8 26.0 - 34.0 pg MCHC 29.9 (L) 32.0 - 36.0 g/dL RDW 14.0 11.5 - 14.5 % Platelets 188 150 - 450 x10*3/uL Basic Metabolic Panel Result Value Ref Range Glucose 110 (H) 74 - 99 mg/dL Sodium 137 136 - 145 mmol/L Potassium 4.5 3.5 - 5.3 mmol/L Chloride 103 98 - 107 mmol/L Bicarbonate 27 21 - 32 mmol/L Anion Gap 12 10 - 20 mmol/L Urea Nitrogen 46 (H) 6 - 23 mg/dL Creatinine 2.42 (H) 0.50 - 1.05 mg/dL eGFR 20 (L) >60 mL/min/1.73m*2 Calcium 8.8 8.6 - 10.3 mg/dL POCT GLUCOSE Result Value Ref Range POCT Glucose 98 74 - 99 mg/dL POCT GLUCOSE Result Value Ref Range POCT Glucose 96 74 - 99 mg/dL Assessment/Plan 78-year-old female with past medical history of CHF, DM 2 with CKD 4, hypertension, neuropathy, depression, and hypertension who presents to the ED with chief complaint of chest pain. Serial troponins were slightly elevated but at patient's baseline. EKG showed no acute findings. Chest x-ray revealed history of cardiomegaly but no acute cardiopulmonary process. Aspirin 324 mg were provided in the ED. Patient was chest pain and shortness of breath free. She was admitted for further evaluation and treatment of her chest pain. Principal Problem: Chest pain Active Problems: Chest pain, unspecified type -Cardiology evaluated and treating -- Right and Left Heart Catheterization (09/09/2023): Left coronary artery system dominance, Non-obstructive CAD Ectasia Lcx, Mod-severely reduced LV systolic function, Mildly elevated pulmonary hypertension. - Would suggest to keep ASA, high intensity statin, beta-darinel. -Continue telemetry -Serial troponins at baseline in ED. -Chest x-ray negative for acute findings -EKG without acute changes Elevated D-dimer -VQ scan low probability of acute PE Acute on chronic pain -Patient using Tylenol at home. Will add tramadol for moderate pain Stuart for severe pain History of CHF -Echo from 10/04/2022 reveal EF 30 to 35% -Status post AICD -No signs symptoms of fluid overload -Lasix 20 mg daily, Toprol 50 mg daily, simvastatin 40 mg daily DM2 with CKD 4 with neuropathy -Last A1c 8.3 -Carb controlled diet -Check blood sugars ACHS sliding scale insulin -On gabapentin for neuropathic pain -GFR baseline appears to be low 20s creatinine about 2.05-2.38 -Renal function slightly worse today. Slow gentle hydration for the next few hours. -Repeat BMP in a.m. -Patient follows with nephrology in the community Unsteady gait -Uses walkers and canes at home -Consult PT OT May require SNF placement will determine after evaluation. COPD -Continue inhalers -Keep SpO2 greater than 90% -Uses 2 to 4 L of oxygen at at bedtime -Patient follows with pulmonology in the community DVT prophylaxis Lovenox and SCDs Disposition Home with home health care versus SNF 24 to 48 hours when medically stable FLORIN Harkins Subjective Data: Patient reports feeling well, no new adverse events overnight. Patient denies any chest pain, shortness of breath, palpitations, dizziness or syncope. Patient is hemodynamically stable. Overnight Events: No Objective Data: Last Recorded Vitals: Vitals: 09/10/23 0400 09/10/23 0545 09/10/23 0614 09/10/23 0754 BP: 115/72 102/67 BP Location: Left arm Patient Position: Sitting Pulse: 92 79 Resp: 18 20 Temp: 36.4 C (97.6 F) 36 C (96.8 F) TempSrc: Temporal SpO2: 98% 94% 92% Weight: 120 kg (265 lb 3.4 oz) Height: Last Labs: CBC - 09/10/2023: 5:24 AM 8.0 9.5 188 31.8 CMP - 09/10/2023: 5:24 AM 8.8 _ _ --- _ _ _ _ _ PTT - 09/09/2023: 9:54 AM 1.1 13.3 31 TROPHS Date/Time Value Ref Range Status 09/09/2023 06:17 AM 21 0 - 13 ng/L Final 09/09/2023 05:12 AM 20 0 - 13 ng/L Final 01/26/2022 09:18 PM 50 0 - 13 ng/L Final Comment: . Less than 99th percentile of normal range cutoff- Female and children under 18 years old <14 ng/L; Male <21 ng/L: Negative Repeat testing should be performed if clinically indicated. . Female and children under 18 years old 14-50 ng/L; Male 21-50 ng/L: Consistent with possible cardiac damage and possible increased clinical risk. Serial measurements may help to assess extent of myocardial damage. . >50 ng/L: Consistent with cardiac damage, increased clinical risk and myocardial infarction. Serial measurements may help assess extent of myocardial damage. . NOTE: Children less than 1 year old may have higher baseline troponin levels and results should be interpreted in conjunction with the overall clinical context. . NOTE: Troponin I testing is performed using a different testing methodology at [facility] than at other [facility]. Direct result comparisons should only be made within the same method. 01/26/2022 12:31 PM 42 0 - 13 ng/L Final Comment: . Less than 99th percentile of normal range cutoff- Female and children under 18 years old <14 ng/L; Male <21 ng/L: Negative Repeat testing should be performed if clinically indicated. . Female and children under 18 years old 14-50 ng/L; Male 21-50 ng/L: Consistent with possible cardiac damage and possible increased clinical risk. Serial measurements may help to assess extent of myocardial damage. . >50 ng/L: Consistent with cardiac damage, increased clinical risk and myocardial infarction. Serial measurements may help assess extent of myocardial damage. . NOTE: Children less than 1 year old may have higher baseline troponin levels and results should be interpreted in conjunction with the overall clinical context. . NOTE: Troponin I testing is performed using a different testing methodology at [facility] than at other [facility]. Direct result comparisons should only be made within the same method. repeated and verified BNP Date/Time Value Ref Range Status 12/12/2022 08:50 AM 309 0 - 99 pg/mL Final Comment: . <100 pg/mL - Heart failure unlikely 100-299 pg/mL - Intermediate probability of acute heart . failure exacerbation. Correlate with clinical . context and patient history. >=300 pg/mL - Heart Failure likely. Correlate with clinical . context and patient history. BNP testing is performed using different testing methodology at [facility] than at other [facility]. Direct result comparisons should only be made within the same method. 04/13/2022 11:17 AM 1,140 0 - 99 pg/mL Final Comment: . <100 pg/mL - Heart failure unlikely 100-299 pg/mL - Intermediate probability of acute heart . failure exacerbation. Correlate with clinical . context and patient history. >=300 pg/mL - Heart Failure likely. Correlate with clinical . context and patient history. BNP testing is performed using different testing methodology at [facility] than at other [facility]. Direct result comparisons should only be made within the same method. HGBA1C Date/Time Value Ref Range Status 05/01/2023 10:41 AM 8.3 4.3 - 5.6 % Final Comment: Location:[address], [address] Point of care (POC) Hemoglobin A1c (HGBA1C) testing is intended to assess glucose control and provide a management tool for patients known to have diabetes and their healthcare providers. Target HGBA1C levels may depend on specific clinical circumstances. POC HGBA1C is not intended for use as a diagnostic or screening test; laboratory-based testing should be used for diagnostic purposes. The following information is supplemental and may not be applicable to specific diabetes management situations: The POC device nurses superintendent provides a normal range of 4.2% to 6.5% for the HGBA1C POC test. However, the [place] Diabetes Association guidelines indicate that patients with HGBA1C in the range of 5.7% to 6.4% are at increased risk for development of diabetes and that intervention by lifestyle modification may be beneficial. A HGBA1C level greater than or equal to 6.5% is considered diagnostic of diabetes, pending confirmatory testing. Use of HGBA1C testing to evaluate glucose control may not be appropriate for patients with hemoglobin variants or other conditions (e.g. anemia) that alter red blood cell lifespan. 01/04/2023 10:42 AM 12.4 4.2 - 5.6 % Final Comment: Location:[facility], [address] [place] [address], [place], [address] Point of care (POC) Hemoglobin A1c (HGBA1C) testing is intended to assess glucose control and provide a management tool for patients known to have diabetes and their healthcare providers. Target HGBA1C levels may depend on specific clinical circumstances. POC HGBA1C is not intended for use as a diagnostic or screening test; laboratory-based testing should be used for diagnostic purposes. The following information is supplemental and may not be applicable to specific diabetes management situations: The POC device nurses superintendent provides a normal range of 4.2% to 6.5% for the HGBA1C POC test. However, the [place] Diabetes Association guidelines indicate that patients with HGBA1C in the range of 5.7% to 6.4% are at increased risk for development of diabetes and that intervention by lifestyle modification may be beneficial. A HGBA1C level greater than or equal to 6.5% is considered diagnostic of diabetes, pending confirmatory testing. Use of HGBA1C testing to evaluate glucose control may not be appropriate for patients with hemoglobin variants or other conditions (e.g. anemia) that alter red blood cell lifespan. LDLCALC Date/Time Value Ref Range Status 09/09/2023 05:12 AM 27 <=99 mg/dL Final Comment: Near Borderline AGE Desirable Optimal High High Very High 0-19 Y 0 - 109 --- 110-129 >/= 130 ---- 20-24 Y 0 - 119 --- 120-159 >/= 160 ---- >24 Y 0 - 99 100-129 130-159 160-189 >/=190 VLDL Date/Time Value Ref Range Status 09/09/2023 05:12 AM 23 0 - 40 mg/dL Final Last I/O: I/O last 3 completed shifts: In: 640 (5.3 mL/kg) [P.O.:640] Out: 5 (0 mL/kg) [Blood:5] Weight: 120.3 kg Past Cardiology Tests (Last 3 Years): EKG: ECG 12 lead 09/09/2023 (Preliminary) ECG 12 lead 09/09/2023 (Preliminary) ECG 12 Lead 12/28/2022 Echo: No results found for this or any previous visit from the past 1095 days. Ejection Fractions: No results found for: EF Cath: Cardiac Catheterization Procedure 09/09/2023 Stress Test: No results found for this or any previous visit from the past 1095 days. Cardiac Imaging: No results found for this or any previous visit from the past 1095 days. Inpatient Medications: Scheduled medications Medication Dose Route Frequency aspirin 325 mg oral Once budesonide 0.5 mg nebulization BID docusate sodium 100 mg oral Daily enoxaparin 30 mg subcutaneous Daily formoterol 20 mcg nebulization BID [Held by provider] furosemide 20 mg oral Daily gabapentin 300 mg oral BID hydrALAZINE 25 mg oral TID insulin glargine 55 Units subcutaneous Nightly insulin lispro 0-5 Units subcutaneous TID metoprolol succinate XL 50 mg oral Daily polyethylene glycol 17 g oral Daily simvastatin 40 mg oral Daily tiotropium 2 puff inhalation Daily venlafaxine XR 37.5 mg oral Daily PRN medications Medication acetaminophen dextrose glucagon HYDROcodone-acetaminophen oxygen traMADol Continuous Medications Medication Dose Last Rate sodium chloride 0.9% 75 mL/hr 75 mL/hr (09/10/23 0820) Physical Exam: General: alert, oriented and in no acute distress. Obesity HEENT: NC/AT; EOMI; PERRLA, external ear is normal Neck: supple; trachea midline; no masses; no JVD Chest: clear breath sounds bilaterally; no wheezing. NC oxygen Cardio: regular rhythm, S1S2 normal, no murmurs. ICD L subclavian Abdomen: Soft, non-tender, non-distension, no organomegaly Extremities: Edema 1+/3+ LE b/l. Good healing access site Neuro: Grossly intact Psychiatric: Normal mood and affect Assessment/Plan Mrs. Val Erickson is a 78 y.o. non-smoker diabetic female being consulted by the Cardiology team for chest pain. Sees Dr. Antoine in Cardiology clinic. Past medical history significant for S/P AICD, CHF, hypertension, diabetes, hyperlipidemia, CKD stage IV, neuropathy, depression. She was brought to ED [facility] on 09/09/2023 complaining of chest pain. Patient reported that she was awakened from her sleep due to sharp stabbing left chest pain. There were no associated symptoms with this. She had no acute illnesses and at her baseline status prior to this episode. She called her neighbor who came and spoke with her and decided she should call EMS and get transported to the hospital. Currently she is awake oriented in no acute distress. No chest pain, dizziness, palpitations, or dizziness. No leg swelling no abdominal pain, no other complaints. In the ED, EKG shows normal sinus rhythm old LBBB. Chest x-ray revealed history of cardiomegaly but no acute cardiopulmonary process. Aspirin 324 mg were provided in the ED. Patient was chest pain and shortness of breath free. She was admitted for further evaluation and treatment of her chest pain. Trop 20-21. BNP 309. Patient was admitted for clinical compensation. Assessment # Chest pain - Trop 20-21 - BNP 309 - Chest pain for 45 min overnight. - EKG showing sinus rhythm and LBBB. - Keep ASA, high intensity statin, beta-darinel. 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 # Heart Failure with reduced LV systolic function (LVEF 30-35%) / S/P ICD - Echo (10/04/2022): 1. Left ventricular systolic function is moderately decreased with a 30-35% estimated ejection fraction. 2. There is global hypokinesis of the left ventricle with minor regional variations. 3. There is a trivial pericardial effusion 4. There is no evidence of cardiac tamponade. 5. RVSP within normal limits. - Patient continues to be volume overloaded based on her clinical presentation. We suggest to keep diuresing. - Keep daily weights. Patient's admission weight is lb. - Low sodium diet (2g). - 1500mL fluid restriction. - Strict I&Os. - Electrolyte control and daily BMP including magnesium. - General recommendations for heart failure, including low-sodium diet, fluid restriction, daily weight and adherence to medication. - Keep GDMT with hydralazine 25mg q8h, Metoprolol succinate 50mg daily. - Keep Furosemide PO. - Patient not on additional diuretics due to CKD - Discuss starting empaglifozin with Nephrology team. - Follow up with Cardiology team as outpatient - Dr. Arash. # CKD stage IV - Crea 2.2 - Follow up with Nephrology. # Hypertension - Controlled blood pressure. - Keep current medications. - Patient counseled to keep a healthy lifestyle including regular exercise and low-sodium diet. - Recommended home blood pressure monitoring. - Goal of BP < 130/80mmHg. # Diabetes - Counseled on healthy diet and regular exercises. - Discussed need for weight loss and the benefits. - Keep current medications. - ISS. # Hyperlipidemia - Controlled by PCP. - Keep home medication with Simvastatin 40mg daily. - Counseled on healthy diet and regular exercise. Thank you for allowing me to participate in the care of this patient. Please reach me out if you have any questions or if you need any clarifications regarding the patient's care. 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 Will reattempt as able.) Missed Time: Attempt Occupational Therapy Therapy Communication Note Patient Name: Val Erickson Today's Date: 09/09/2023 Discipline: Occupational Therapy Missed Visit Reason: Missed Visit Reason: Other (Comment) (Pt off the floor. Will re-attempt at later time as appropriate.) Missed Time: Attempt Comment: 09/09/23 1036 Discharge Planning Living Arrangements Alone Support Systems Family members;Children Assistance Needed None Type of Residence Private residence Number of Stairs to Enter Residence 0 Number of Stairs Within Residence 0 Do you have animals or pets at home? No Who is requesting discharge planning? Provider Home or Post Acute Services None Patient expects to be discharged to: Home Does the patient need discharge transport arranged? No Financial Resource Strain How hard is it for you to pay for the very basics like food, housing, medical care, and heating? Not hard Housing Stability In the last 12 months, was there a time when you were not able to pay the mortgage or rent on time? N In the last 12 months, how many places have you lived? 1 In the last 12 months, was there a time when you did not have a steady place to sleep or slept in a correction (including now)? N Transportation Needs In the past 12 months, has lack of transportation kept you from medical appointments or from getting medications? no In the past 12 months, has lack of transportation kept you from meetings, work, or from getting things needed for daily living? No Care Transitions: Spoke with pt via phone due to working remote and verified address, phone number and emergency contact information. PCP is Dr Winn last seen in March and preferred pharmacy is [facility]-term and [facility] short-term. Pt is independent except driving, lives alone and feels safe. Pt uses DME upright walker when out of her apartment, shower chair, grab bars and handles on toilet. Pt is diabetic and checks her blood sugar every morning and is on insulin she states she has enough supplies. She wears 3L oxygen at night and that is supplied by [facility]. She has COA meals at lunch daily M-. Son takes her to appointments and assists with groceries as needed when she can't get them delivered as pt no longer drives. Pt also has 2 emergency alert buttons in her apartment. Pt is currently declining assistance but her sight is declining and she knows she will need it eventually. Plan is home no needs at this time. ADOD 09/09. [facility] per nursing. CT to follow. Lynn Ramirez BSN/RN-TCC documented in this encounter [facility] Work Phone: 09-10-2023 Plan of care note Problem: Pain - Adult Goal: Verbalizes/displays adequate comfort level or baseline comfort level Outcome: Progressing Problem: Safety - Adult Goal: Free from fall injury Outcome: Progressing Problem: Discharge Planning Goal: Discharge to home or other facility with appropriate resources Outcome: Progressing Problem: Chronic Conditions and Co-morbidities Goal: Patient's chronic conditions and co-morbidity symptoms are monitored and maintained or improved Outcome: Progressing Problem: Fall/Injury Goal: Be free from injury by end of the shift Outcome: Progressing Problem: Diabetes Goal: Maintain electrolyte levels within acceptable range throughout shift Outcome: Progressing Goal: Maintain glucose levels >70mg/dl to <250mg/dl throughout shift Outcome: Progressing Goal: No changes in neurological exam by end of shift Outcome: Progressing The patient's goals for the shift include The clinical goals for the shift include Patient will have no episodes of chest pain this shift, [facility] 09-10-2023 Miscellaneous Notes Problem: Pain - Adult Goal: Verbalizes/displays adequate comfort level or baseline comfort level Outcome: Progressing Problem: Safety - Adult Goal: Free from fall injury Outcome: Progressing Problem: Discharge Planning Goal: Discharge to home or other facility with appropriate resources Outcome: Progressing Problem: Chronic Conditions and Co-morbidities Goal: Patient's chronic conditions and co-morbidity symptoms are monitored and maintained or improved Outcome: Progressing Problem: Fall/Injury Goal: Be free from injury by end of the shift Outcome: Progressing Problem: Diabetes Goal: Maintain electrolyte levels within acceptable range throughout shift Outcome: Progressing Goal: Maintain glucose levels >70mg/dl to <250mg/dl throughout shift Outcome: Progressing Goal: No changes in neurological exam by end of shift Outcome: Progressing The patient's goals for the shift include The clinical goals for the shift include Patient will have no episodes of chest pain this shift, The patient's goals for the shift include no sob The clinical goals for the shift include Will not c/o CP; maintain comfort Over the shift, the patient did not make progress toward the following goals. Barriers to progression include chf. Recommendations to address these barriers include heart cath. Physician Transition of Care Summary Invasive Cardiovascular Lab Procedure Date: 09/09/2023 Attending: * Cesar Lucio - Primary Resident/Fellow/Other Concrete [employer] Maker: Surgeons and Role: * No surgeons found with a matching role * Indications: Pre-op Diagnosis * Chest pain, unspecified type [R07.9] Post-procedure diagnosis: Post-op Diagnosis * Chest pain, unspecified type [R07.9] Procedure(s): [place] [address] - MT R & L HRT CATH W/NJX L VENTRICULOG IMG S&I Procedure Findings: Left coronary artery system dominance Non-obstructive CAD Ectasia LCx Mod-severely reduced LV systolic function Description of the Procedure: Procedure: Right and Left Heart Catheterization Right Cephalic brachial vein access with 5F sheath. 5F balloon-tip Arrow catheter inserted and advanced to the pulmonary artery. Right heart catheterization and hemodynamic measurements. Cardiac output and cardiac index assessed by Lydia method. Catheter removed. PWP 9, PA 45/13 (29), RV 46/0/4, RA 4mmHg; LVeDP 17mmHg CO 4.5, CI 2.08 R radial artery access with 6F sheath. LV and Ao hemodynamic measurements. S/P LHC that showed non-obstructive coronary artery disease. Ectasia LCx. Moderate to severely reduced LV systolic function. Patient remained stable during the entire procedure. No complications. Hemostasis with TR Band. Plan: Patient may be discharged home after bed rest for 3 hours. Constant check for bleeding. Maintain compression band (CB) for 45 minutes past procedure. Remove 3mL of air from CB every 15 minutes until fully deflated. If recurrent bleeding occurs, re-inflate with enough air to fully restore hemostasis (2 to 3 mL, maximum of 18 mL). Maintain CB at this same level for 30 minutes before attempting to re-deflate. Once fully deflated, carefully remove CB and place a sterile dressing over access site. Observe for 15 minutes and check for pulse and for signs of bleeding. Instruct patient not to use or bend their wrist for four hours. Would suggest to keep GDMT at this point. Complications No Stents/Implants: Implants No implant documentation for this case. Estimated Blood Loss: 5 mL Anesthesia: Moderate Sedation Anesthesia Staff: No anesthesia staff entered. Any Specimen(s) Removed: No specimens collected during this procedure. Disposition: Floor Electronically signed by: Cesar Lucio MD, 09/09/2023 1:32 PM Patient was ambulated with RT. Patient SpO2 dropped to upper 70s and patient felt very short of breath. Patient does have history of COPD. Will add D-dimer if positive CT chest rule out PE. Patient going to [facility] today with Dr. Rizvi. Sedation Plan ASA 2 Mallampati class: III. Risks, benefits, and alternatives discussed with patient. documented in this encounter [facility] Work Phone: 09-10-2023 Nurse Note COPD Education Patient Characteristics: Pt. Sitting up in chair on RA. Comorbidities: Exacerbation last year: Moderate: >= 2 exacerbations or >= 1 exacerbation leading to hospitalization Spirometry: Pt. Tried to do a PFT once and she was unable to do it. Date: FVC: ( %) FEV1: ( %) FEV1/FVC: ( %) Uses of Oxygen/CPAP/BIPAP: Pt. Wears 2L oxygen at HS pt stated My pulmonary DrUsman Told me to increase it to 3l. Wilver his her home oxygen provider. Smoking status: Smoker: Never PPY: Quit date: Smoking cessation counseling: Booklet given: Pulmonary physician: Yes Name: Dr. Walter Date last seen: Pharmacotherapy: Maintenance medications Trelegy LABA, LAMA, LABA/LAMA, ICS/LABA, ICS/LAMA, ICS/LABA/LAMA, Name of the medication: Pt. Does not take any other breathing medications. Prednisone: No Theophylline: No Roflumilast: No Macrolides: No If not on maintenance meds: Consider LAMA or LAMA/LABA Consider ICS (if peripheral eosinophilia >300cells/microl, COPD exacerbation requiring hospitalization, >= 2 moderated COPD exacerbation, History of or concomitant asthma) If low inspiratory force or challenges with inhalers Consider Nebulizers Consider RESPIMAT COPD Education COPD patient education book: Yes, COPD Action Plan Inhaled medication teach-back: Yes DEVYN, other videos: Patient demonstrated understanding/teach back method: Yes Home Oxygen Evaluation: Pt. Is at her baseline for home o2 Pulmonary Rehabilitation referral: Already attended: When: Info in COPD patient education book Vaccines Influenza: Pneumococcal: COVID 19: Pertussis: Recommendations: pt. States :My pulmonary Dr. Told me I don't have COPD. Pt. Does not have nay issues with COPD/breathing. [facility] 09-09-2023 Plan of care note The patient's goals for the shift include no sob The clinical goals for the shift include Will not c/o CP; maintain comfort Over the shift, the patient did not make progress toward the following goals. Barriers to progression include chf. Recommendations to address these barriers include heart cath. [facility] 09-09-2023 Hospital Discharge instructions Tara Rollins APRN-[facility] - 09/09/2023 2:04 PM EDT Images from the original note were not included. CARDIAC CATHETERIZATION DISCHARGE INSTRUCTIONS FOR SUDDEN AND SEVERE CHEST PAIN, SHORTNESS OF BREATH, EXCESSIVE BLEEDING, SIGNS OF STROKE, OR CHANGES IN MENTAL STATUS YOU SHOULD CALL 911 IMMEDIATELY. If your provider has prescribed aspirin and/or clopidogrel (Plavix), or prasugrel (Effient), or ticagrelor (Brilinta), DO NOT STOP THESE MEDICATIONS for any reason without talking to your ballistics teacher first. If any of these were prescribed, you must take them every day without missing a single dose. If you are getting low on these medications, contact your provider immediately for a refill. FOR NEXT 24 HOURS - Upon discharge, you should return home and rest for the remainder of the day and evening. You do not have to stay on bed rest but should not be very active. It is recommended a responsible adult be with you for the first 24 hours after the procedure. - No driving for 24 hours after procedure. Please arrange for someone to drive you home from the hospital today. - Do not drive, operate machinery, or use power tools for 24 hours after your procedure. - Do not make any legal decisions for 24 hours after your procedure. - Do not drink alcoholic beverages for 24 hours after your procedure. WOUND CARE *FOR FEMORAL (LEG) ACCESS* Avoid heavy lifting (over 10 pounds) for 7 days, squatting or excessive bending for 2 days, and strenuous exercise for 7 days. No submerged bathing, swimming, or hot tubs for the next 7 days, or until fully healed. Avoid sexual activity for 3-4 days until any groin discomfort has ceased. *FOR RADIAL (WRIST) ACCESS* No lifting more than 5 pounds or excessive use of the wrist for 24 hours - for example, treat your wrist as if it is sprained. Do not engage in vigorous activities (tennis, golf, bowling, weights) for at least 48 hours after the procedure. Do not submerge the wrist for 7 days after the procedure. You should expect mild tingling in your hand and tenderness at the puncture site for up to 3 days. - The transparent dressing should be removed from the site 24 hours after the procedure. Wash the site gently with soap and water. Rinse well and pat dry. Keep the area clean and dry. You may apply a Band-Aid to the site. Avoid lotions, ointments, or powders until fully healed. - You may shower the day after your procedure. - It is normal to notice a small bruise around the puncture site and/or a small grape sized or smaller lump. Any large bruising or large lump warrants a call to the office. - If bleeding should occur, lay down and apply pressure to the affected area for 10 minutes. If the bleeding stops notify your physician. If there is a large amount of bleeding or spurting of blood CALL [address] yourself to the hospital. - You may experience some tenderness, bruising or minimal inflammation. If you have any concerns, you may contact the [facility] or if any of these symptoms become excessive, contact your ballistics teacher or go to the emergency room. OTHER INSTRUCTIONS - You may take acetaminophen (Tylenol) as directed for discomfort. If pain is not relieved with acetaminophen (Tylenol), contact your doctor. - If you notice or experience any of the following, you should notify your doctor or seek medical attention Chest pain or discomfort Change in mental status or weakness in extremities. Dizziness, light headedness, or feeling faint. Change in the site where the procedure was performed, such as bleeding or an increased area of bruising or swelling. Tingling, numbness, pain, or coolness in the leg/arm beyond the site where the procedure was performed. Signs of infection (i.e. shaking chills, temperature > 100 degrees Fahrenheit, warmth, redness) in the leg/arm area where the procedure was performed. Changes in urination Bloody or black stools Vomiting blood Severe nose bleeds Any excessive bleeding - If you DO NOT have an appointment with your ballistics teacher within 2-4 weeks following your procedure, please contact their office. Lifestyle Recommendations for a Healthier Life: The following lifestyle changes can have a significant positive impact on your overall health - helping you to achieve healthy weight, lower metabolic and heart disease risk and manage stress more effectively: 1. Eat whole, fresh foods. Food is one of the biggest drivers of our overall health. Make your meals whole foods based, focusing on a wide variety of non starchy vegetables and fruits. It also beneficial to include various nuts, seeds and high-quality animal proteins for overall balanced diet. 2. Remove the sweeteners from your diet. Artificial sweeteners have a negative impact on our metabolic health - they can cause increase in both glucose and insulin, increasing the risk or potential for insulin resistance and abnormal blood sugar levels. Artificial sweeteners are also excessively sweeter than regular sugar, they trick our taste buds into craving extreme forms of sweet, like an addiction. I encourage you to avoid sugar, but also stevia, aspartame, sucralose, sugar alcohols like xylitol and maltitol. 3. Get rid of the inflammatory factors in your diet - this mainly comes from sugars of all kinds and refined vegetable oils. These can increase our risk for changes in our metabolic health which can lead to diabetes, heart disease and other chronic disease. You can reverse or combat the effective of inflammatory foods by increasing your intake of anti-inflammatory foods like wild-caught fish, fresh ground flax seed, fish oil and variety of fruits & vegetables. 4. Eat plenty of fiber!! The standard [place] diet has very low levels of daily dietary fiber, many people barely get 15 grams per day. There is plenty of nutrition research that shows how high-fiber foods can help lower our blood sugar. Eat a wide variety of fiber-rich plant-based foods including nuts, seeds, fruits, vegetables, and legumes. 5. Get enough sleep. Studies from experts in endocrinology & metabolism have shown that even a few nights of poor sleep can increase the risk of insulin resistance and abnormal blood sugar values. Make sleep a priority - it is an important factor in your health. Develop a sleep routine including: avoid eating two-three hours before bed, practice relaxation techniques (warm bath, meditation, yoga, mindfulness) to help relax your muscles and prepare you for sleep. Go to bed and wake up at consistent times. Avoid screen time for at least 60-90 minutes before bedtime. 6. Make exercise part of your regular routine. Exercise helps us manage blood sugar more effectively and makes our cells more receptive to the effect of the insulin our body makes (lowers blood sugar). Regular aerobic exercise AND interval or strength training are ideal to help maintain a healthy weight, metabolism & lower the risk of chronic disease. 7. Control stress levels. Chronic stress can lead to elevated blood sugar, elevated blood pressure, accumulation of fat around the belly and these things increase the risk for metabolic syndrome, diabetes and heart disease. We all have various levels of stress in our lives, we can't control all of it, but we can control how we respond to it and manage it's impact. Find healthy outlets for stress management like meditation, yoga, deep breathing, or exercise. Home BP monitoring instructions: Goal < 130 / 80 Remain still, Avoid smoking, caffeinated beverages, or exercise within 30 min before BP measurements. Ensure 5 min of quiet rest before BP measurements. Sit correctly with back straight and supported (on a straight-backed dining chair, for example, rather than a sofa). Sit with feet flat on the floor and legs uncrossed. Keep arm supported on a flat surface (such as a table), with the upper arm at heart level. Bottom of the cuff should be placed directly above the bend of the elbow Take a reading in the AM before breakfast 2-3 times / week Record all readings accurately: A written log should be brought to all appointments Monitors with built-in memory should be brought to all clinic appointments and calibrated to our machines Weight Management: Since food equals calories, in order to lose weight you must either eat fewer calories, exercise more to burn off calories with activity, or both. Food that is not used to fuel the body is stored as fat. A major component of losing weight is to make smarter food choices. Here's how: Limit non-nutritious foods, such as: Sugar, honey, syrups and candy Pastries, donuts, pies, cakes and cookies Soft drinks, sweetened juices and alcoholic beverages Cut down on high-fat foods by: Choosing poultry, fish or lean red meat Choosing low-fat cooking methods, such as baking, broiling, steaming, grilling and boiling Using low-fat or non-fat dairy products Using vinaigrette, herbs, lemon or fat-free salad dressings Avoiding fatty meats, such as mujica, sausage, alcaraz, ribs and luncheon meats Avoiding high-fat snacks like nuts, chips and chocolate Avoiding fried foods Using less butter, margarine, oil and mayonnaise Avoiding high-fat gravies, cream sauces and cream-based soups Eat a variety of foods, including: Fruit and vegetables that are raw, steamed or baked Whole grains, breads, cereal, rice and pasta Dairy products, such as low-fat or non-fat milk or yogurt, low-fat cottage cheese and low-fat cheese Protein-rich foods like chicken, turkey, fish, lean meat and legumes, or beans Change your eating habits: Eat three balanced meals a day to help control your hunger Watch portion sizes and eat small servings of a variety of foods Choose low-calorie snacks Eat only when you are hungry and stop when you are satisfied Eat slowly and try not to perform other tasks while eating Find other activities to distract you from food, such as walking, taking up a hobby or being involved in the community Include regular exercise in your daily routine Find a support group, if necessary, for emotional support in your weight loss effort Patient Education: Smoking Cessation Making the commitment to quit smoking is one of the best choices that smokers can make for themselves, but also a difficult one. There are various opportunities for support available. Here is an overview of them. There are various forms of nicotine replacement therapy available to assist with minimizing these symptoms. They are nicotine gum, nicotine patch, nicotine nasal spray, nicotine inhaler, and nicotine lozenge. Which kind of nicotine replacement therapy will best work for you can be discussed with your doctor or nurse to help you understand the pros and cons of each. Non-nicotine replacement therapy is also available. Bupropion (Wellbutrin, Zyban) is a mild anti-depressant that is also effective in helping people to quit smoking. It can be used alone or with nicotine replacement therapy. Varenicline (Chantix) is another medication that helps people who what to quit. This medication is not a form of nicotine replacement therapy, but it helps with the withdrawal symptoms. Studies have shown that the best success rates for people trying to quit include counseling and/or support groups such as the [facility] that is a free, confidential, 08/10, 348-yiv-q-year treatment referral and information service: 1-649-543-QUES (5394) Some helpful hints include: Avoidance. Stay away from smokers and places where you are tempted to smoke. Activities. Exercise or do hobbies that keep your hands busy. Alternatives. Use oral substitutes such as sugarless gum, hard candy, and carrot sticks. Change of habits. For example, if you usually smoke during a coffee break, then go for a walk instead. Deep breathing. When you have the urge to smoke, do a deep breathing exercise and remind yourself why you quit. Delay tactic. If you feel that you are about to light up, delay. Tell yourself you must wait 10 minutes. Often this simple trick will allow you to move beyond the urge Discussion. Call a friend for support. Drink of water. Use as an oral substitute such as water. Many people say the reason they smoke is to deal with stress. Unfortunately, stress is a part of all our lives. When quitting, you will need to find new strategies to deal with stress. There are stress-management classes, and self-help books that can help you discover new ways to reduce and deal with stress. The bottom line is: don't just try to go it alone-reach out for support to help you achieve your goal. Discharge: Discharge home with [facility] Resume home meds Follow-up with PCP in 2 weeks Keep existing appointment with Dr. Antoine for tomorrow Follow-up with nephrology on Saturday Thank you for allowing [facility] to participate in your care. Return to the ER if symptoms worsen documented in this encounter [facility] Work Phone: 09-09-2023 Note Formatting of this n ote is different from the original. Physician Transition of Care Summary Invasive Cardiovascular Lab Procedure Date: 09/09/2023 Attending: * Cesar Lucio - Primary Resident/Fellow/Other Concrete Float Maker: Surgeons and Role: * No surgeons found with a matching role * Indications: Pre-op Diagnosis * Chest pain, unspecified type [R07.9] Post-procedure diagnosis: Post-op Diagnosis * Chest pain, unspecified type [R07.9] Procedure(s): [place] [address] - [place] R & L HRT CATH W/NJX L VENTRICULOG IMG S&I Procedure Findings: Left coronary artery system dominance Non-obstructive CAD Ectasia LCx Mod-severely reduced LV systolic function Description of the Procedure: Procedure: Right and Left Heart Catheterization Right Cephalic brachial vein access with 5F sheath. 5F balloon-tip Arrow catheter inserted and advanced to the pulmonary artery. Right heart catheterization and hemodynamic measurements. Cardiac output and cardiac index assessed by Lydia method. Catheter removed. PWP 9, PA 45/13 (29), RV 46/0/4, RA 4mmHg; LVeDP 17mmHg CO 4.5, CI 2.08 R radial artery access with 6F sheath. LV and Ao hemodynamic measurements. S/P LHC that showed non-obstructive coronary artery disease. Ectasia LCx. Moderate to severely reduced LV systolic function. Patient remained stable during the entire procedure. No complications. Hemostasis with TR Band. Plan: Patient may be discharged home after bed rest for 3 hours. Constant check for bleeding. Maintain compression band (CB) for 45 minutes past procedure. Remove 3mL of air from CB every 15 minutes until fully deflated. If recurrent bleeding occurs, re-inflate with enough air to fully restore hemostasis (2 to 3 mL, maximum of 18 mL). Maintain CB at this same level for 30 minutes before attempting to re-deflate. Once fully deflated, carefully remove CB and place a sterile dressing over access site. Observe for 15 minutes and check for pulse and for signs of bleeding. Instruct patient not to use or bend their wrist for four hours. Would suggest to keep GDMT at this point. Complications No Stents/Implants: Implants No implant documentation for this case. Estimated Blood Loss: 5 mL Anesthesia: Moderate Sedation Anesthesia Staff: No anesthesia staff entered. Any Specimen(s) Removed: No specimens collected during this procedure. Disposition: Floor Electronically signed by: Cesar Lucio MD, 09/09/2023 1:32 PM [facility] Work Phone: 09-09-2023 Note Formatting of this n ote might be different from the original. Patient was ambulated with RT. Patient SpO2 dropped to upper 70s and patient felt very short of breath. Patient does have history of COPD. Will add D-dimer if positive CT chest rule out PE. Patient going to [facility] today with Dr. Rizvi. [facility] Work Phone: 09-09-2023 Note Formatting of this n ote might be different from the original. Sedation Plan ASA 2 Mallampati class: III. Risks, benefits, and alternatives discussed with patient. [facility] Work Phone: 09-09-2023 Attending History and physical note H&P reviewed. The patient was examined and there are no changes to the H&P. Source Note - Cesar Lucio MD - 09/09/2023 10:57 AM EDT Inpatient consult to Cardiology Consult performed by: Cesar Lucio MD Consult ordered by: FLORIN Harkins Reason for consult: chest pain History Of Present Illness: Mrs. Val Erickson is a 78 y.o. non-smoker diabetic female being consulted by the Cardiology team for chest pain. Sees Dr. Antoine in Cardiology clinic. Past medical history significant for S/P AICD, CHF, hypertension, diabetes, hyperlipidemia, CKD stage IV, neuropathy, depression. She was brought to ED [facility] on 09/09/2023 complaining of chest pain. Patient reported that she was awakened from her sleep due to sharp stabbing left chest pain. There were no associated symptoms with this. She had no acute illnesses and at her baseline status prior to this episode. She called her neighbor who came and spoke with her and decided she should call EMS and get transported to the hospital. Currently she is awake oriented in no acute distress. No chest pain, dizziness, palpitations, or dizziness. No leg swelling no abdominal pain, no other complaints. In the ED, EKG shows normal sinus rhythm old LBBB. Chest x-ray revealed history of cardiomegaly but no acute cardiopulmonary process. Aspirin 324 mg were provided in the ED. Patient was chest pain and shortness of breath free. She was admitted for further evaluation and treatment of her chest pain. Trop 20-21. BNP 309. Patient was admitted for clinical compensation. Last Recorded Vitals: Vitals: 09/09/23 0800 09/09/23 0804 09/09/23 0835 09/09/23 1016 BP: 138/88 118/64 129/75 BP Location: Patient Position: Pulse: 92 97 96 Resp: 18 18 20 20 Temp: 35.9 C (96.6 F) TempSrc: SpO2: 98% 99% 99% Weight: 121 kg (266 lb 9.6 oz) Height: 1.6 m (5' 3) Last Labs: CBC - 09/09/2023: 5:12 AM 8.9 9.8 196 31.2 CMP - 09/09/2023: 5:12 AM 9.5 _ _ --- _ _ _ _ _ PTT - 09/09/2023: 9:54 AM 1.1 13.3 31 Troponin I, High Sensitivity Date/Time Value Ref Range Status 09/09/2023 06:17 AM 21 (H) 0 - 13 ng/L Final 09/09/2023 05:12 AM 20 (H) 0 - 13 ng/L Final Troponin I Date/Time Value Ref Range Status 01/26/2022 09:18 PM 50 (H) 0 - 13 ng/L Final Comment: . Less than 99th percentile of normal range cutoff- Female and children under 18 years old <14 ng/L; Male <21 ng/L: Negative Repeat testing should be performed if clinically indicated. . Female and children under 18 years old 14-50 ng/L; Male 21-50 ng/L: Consistent with possible cardiac damage and possible increased clinical risk. Serial measurements may help to assess extent of myocardial damage. . >50 ng/L: Consistent with cardiac damage, increased clinical risk and myocardial infarction. Serial measurements may help assess extent of myocardial damage. . NOTE: Children less than 1 year old may have higher baseline troponin levels and results should be interpreted in conjunction with the overall clinical context. . NOTE: Troponin I testing is performed using a different testing methodology at [facility] than at other [facility]. Direct result comparisons should only be made within the same method. 01/26/2022 12:31 PM 42 (H) 0 - 13 ng/L Final Comment: . Less than 99th percentile of normal range cutoff- Female and children under 18 years old <14 ng/L; Male <21 ng/L: Negative Repeat testing should be performed if clinically indicated. . Female and children under 18 years old 14-50 ng/L; Male 21-50 ng/L: Consistent with possible cardiac damage and possible increased clinical risk. Serial measurements may help to assess extent of myocardial damage. . >50 ng/L: Consistent with cardiac damage, increased clinical risk and myocardial infarction. Serial measurements may help assess extent of myocardial damage. . NOTE: Children less than 1 year old may have higher baseline troponin levels and results should be interpreted in conjunction with the overall clinical context. . NOTE: Troponin I testing is performed using a different testing methodology at [facility] than at other [facility]. Direct result comparisons should only be made within the same method. repeated and verified BNP Date/Time Value Ref Range Status 12/12/2022 08:50 AM 309 (H) 0 - 99 pg/mL Final Comment: . <100 pg/mL - Heart failure unlikely 100-299 pg/mL - Intermediate probability of acute heart . failure exacerbation. Correlate with clinical . context and patient history. >=300 pg/mL - Heart Failure likely. Correlate with clinical . context and patient history. BNP testing is performed using different testing methodology at [facility] than at [facility]. Direct result comparisons should only be made within the same method. 04/13/2022 11:17 AM 1,140 (H) 0 - 99 pg/mL Final Comment: . <100 pg/mL - Heart failure unlikely 100-299 pg/mL - Intermediate probability of acute heart . failure exacerbation. Correlate with clinical . context and patient history. >=300 pg/mL - Heart Failure likely. Correlate with clinical . context and patient history. BNP testing is performed using different testing methodology at [facility] than at [facility]. Direct result comparisons should only be made within the same method. POCT Hemoglobin A1C Date/Time Value Ref Range Status 05/01/2023 10:41 AM 8.3 (A) 4.3 - 5.6 % Final Comment: Location:[facility], [address] [place] [address], [id number] Point of care (POC) Hemoglobin A1c (HGBA1C) testing is intended to assess glucose control and provide a management tool for patients known to have diabetes and their healthcare providers. Target HGBA1C levels may depend on specific clinical circumstances. POC HGBA1C is not intended for use as a diagnostic or screening test; laboratory-based testing should be used for diagnostic purposes. The following information is supplemental and may not be applicable to specific diabetes management situations: The POC device nurses superintendent provides a normal range of 4.2% to 6.5% for the HGBA1C POC test. However, the [place] Diabetes Association guidelines indicate that patients with HGBA1C in the range of 5.7% to 6.4% are at increased risk for development of diabetes and that intervention by lifestyle modification may be beneficial. A HGBA1C level greater than or equal to 6.5% is considered diagnostic of diabetes, pending confirmatory testing. Use of HGBA1C testing to evaluate glucose control may not be appropriate for patients with hemoglobin variants or other conditions (e.g. anemia) that alter red blood cell lifespan. 01/04/2023 10:42 AM 12.4 (A) 4.2 - 5.6 % Final Comment: Location:[facility], [facility], [place], [address] Point of care (POC) Hemoglobin A1c (HGBA1C) testing is intended to assess glucose control and provide a management tool for patients known to have diabetes and their healthcare providers. Target HGBA1C levels may depend on specific clinical circumstances. POC HGBA1C is not intended for use as a diagnostic or screening test; laboratory-based testing should be used for diagnostic purposes. The following information is supplemental and may not be applicable to specific diabetes management situations: The POC device nurses superintendent provides a normal range of 4.2% to 6.5% for the HGBA1C POC test. However, the [place] Diabetes Association guidelines indicate that patients with HGBA1C in the range of 5.7% to 6.4% are at increased risk for development of diabetes and that intervention by lifestyle modification may be beneficial. A HGBA1C level greater than or equal to 6.5% is considered diagnostic of diabetes, pending confirmatory testing. Use of HGBA1C testing to evaluate glucose control may not be appropriate for patients with hemoglobin variants or other conditions (e.g. anemia) that alter red blood cell lifespan. Last I/O: No intake/output data recorded. Past Cardiology Tests (Last 3 Years): EKG: ECG 12 lead 09/09/2023 (Preliminary) ECG 12 lead 09/09/2023 (Preliminary) ECG 12 Lead 12/28/2022 Echo: No results found for this or any previous visit from the past 1095 days. Ejection Fractions: No results found for: EF Cath: No results found for this or any previous visit from the past 1095 days. Stress Test: No results found for this or any previous visit from the past 1095 days. Cardiac Imaging: No results found for this or any previous visit from the past 1095 days. Past Medical History: She has a past medical history of CHF (congestive heart failure) (Multi), COPD (chronic obstructive pulmonary disease) (Multi), Diabetes mellitus (Multi), and Hypertension. Past Surgical History: She has a past surgical history that includes Cardiac defibrillator placement. Social History: She reports that she has never smoked. She has been exposed to tobacco smoke. She has never used smokeless tobacco. She reports that she does not drink alcohol and does not use drugs. Family History: Family History Problem Relation Name Age of Onset Cancer Mother Stroke Father Coronary artery disease Sister Stroke Brother Diabetes Son Cancer Son Allergies: Levofloxacin and Sulfacetamide sodium Inpatient Medications: Scheduled medications Medication Dose Route Frequency budesonide 0.5 mg nebulization BID docusate sodium 100 mg oral Daily enoxaparin 30 mg subcutaneous Daily formoterol 20 mcg nebulization BID furosemide 20 mg oral Daily gabapentin 300 mg oral BID hydrALAZINE 25 mg oral TID insulin lispro 0-5 Units subcutaneous TID metoprolol succinate XL 50 mg oral Daily polyethylene glycol 17 g oral Daily simvastatin 40 mg oral Daily tiotropium 2 puff inhalation Daily venlafaxine XR 37.5 mg oral Daily PRN medications Medication acetaminophen dextrose glucagon oxygen Continuous Medications Medication Dose Last Rate Outpatient Medications: Current Outpatient Medications Medication Instructions BD Ultra-Fine Orig Pen Needle 29 gauge x 1/2 needle docusate sodium (COLACE) 100 mg, oral, Daily epoetin zari (Epogen) 10,000 unit/mL injection 1.3 mL, subcutaneous, See admin instructions, EVERY 28 DAYS bhemuznnvlg-prmdpyyet-ilwcnqge (Trelegy Ellipta) 100-62.5-25 mcg blister with device 1 puff, inhalation, Daily furosemide (Lasix) 20 mg tablet 1 tablet, oral, Daily, May also take one tab po daily PRN gabapentin (NEURONTIN) 300 mg, oral, 2 times daily hydrALAZINE (APRESOLINE) 25 mg, oral, 3 times daily Lactobacillus acidophilus (PROBIOTIC ACIDOPHILUS ORAL) 1 tablet, oral, Daily Lantus U-100 Insulin 55 Units, subcutaneous, Nightly, Take as directed per insulin instructions. metoprolol succinate XL (TOPROL-XL) 50 mg, oral, Daily, Do not crush or chew. simvastatin (Zocor) 40 mg tablet Take 1 tablet (40 mg) by mouth once daily. venlafaxine XR (Effexor-XR) 37.5 mg 24 hr capsule Take 1 capsule (37.5 mg) by mouth once daily. Take with food Physical Exam: General: alert, oriented and in no acute distress HEENT: NC/AT; EOMI; PERRLA, external ear is normal Neck: supple; trachea midline; no masses; no JVD Chest: clear breath sounds bilaterally; no wheezing. NC oxygen Cardio: regular rhythm, S1S2 normal, no murmurs. ICD L sublcavian Abdomen: Soft, non-tender, non-distension, no organomegaly Extremities: Edema 1+/3+ LE b/l Neuro: Grossly intact Psychiatric: Normal mood and affect Assessment/Plan Mrs. Val Erickson is a 78 y.o. non-smoker diabetic female being consulted by the Cardiology team for chest pain. Sees Dr. Antoine in Cardiology clinic. Past medical history significant for S/P AICD, CHF, hypertension, diabetes, hyperlipidemia, CKD stage IV, neuropathy, depression. She was brought to ED [facility] on 09/09/2023 complaining of chest pain. Patient reported that she was awakened from her sleep due to sharp stabbing left chest pain. There were no associated symptoms with this. She had no acute illnesses and at her baseline status prior to this episode. She called her neighbor who came and spoke with her and decided she should call EMS and get transported to the hospital. Currently she is awake oriented in no acute distress. No chest pain, dizziness, palpitations, or dizziness. No leg swelling no abdominal pain, no other complaints. In the ED, EKG shows normal sinus rhythm old LBBB. Chest x-ray revealed history of cardiomegaly but no acute cardiopulmonary process. Aspirin 324 mg were provided in the ED. Patient was chest pain and shortness of breath free. She was admitted for further evaluation and treatment of her chest pain. Trop 20-21. BNP 309. Patient was admitted for clinical compensation. Assessment # Chest pain - Trop 20-21 - BNP 309 - Chest pain for 45 min overnight. - Keep ASA, high intensity statin, beta-darinel. - The natural history of atherosclerosis was discussed with the patient. The treatment options including GDMT, percutaneous intervention or surgical intervention were discussed with the patient. All the risks, benefits and alternative procedures were discussed. Complications of the procedure were also discussed, including but not limited to risk of bleeding, stroke, infarct, infection, urgent cardiac surgery or . All questions were answered and the informed consent was obtained. After aforementioned testing and consultation, Left Heart Catheterization with potential Percutaneous Coronary Intervention would be a reasonable approach if the patient is candidate. - Please keep NPO. - Please keep ASA, Statin. # Heart Failure - Echo (10/04/2022): 1. Left ventricular systolic function is moderately decreased with a 30-35% estimated ejection fraction. 2. There is global hypokinesis of the left ventricle with minor regional variations. 3. There is a trivial pericardial effusion 4. There is no evidence of cardiac tamponade. 5. RVSP within normal limits. - Patient continues to be volume overloaded based on her clinical presentation. We suggest to keep diuresing. - Keep daily weights. Patient's admission weight is lb. - Low sodium diet (2g). - 1500mL fluid restriction. - Strict I&Os. - Electrolyte control and daily BMP including magnesium. - General recommendations for heart failure, including low-sodium diet, fluid restriction, daily weight and adherence to medication. - Keep GDMT. # Hypertension - Controlled blood pressure. - Keep current medications. - Patient counseled to keep a healthy lifestyle including regular exercise and low-sodium diet. - Recommended home blood pressure monitoring. - Goal of BP < 130/80mmHg. # Diabetes - Counseled on healthy diet and regular exercises. - Discussed need for weight loss and the benefits. - Keep current medications. - ISS. # Hyperlipidemia - Controlled by PCP. - Keep home medication with Simvastatin 40mg daily. - Counseled on healthy diet and regular exercise. Thank you for allowing me to participate in the care of this patient. Please reach me out if you have any questions or if you need any clarifications regarding the patient's care. Peripheral IV 09/09/23 20 G Right Forearm (Active) Site Assessment Clean;Dry;Intact 09/09/23 0505 Number of days: 0 Code Status: DNR and No Intubation Cesar Lucio MD Cardiology [facility] Work Phone: 09-09-2023 History and physical note H&P reviewed. The patient was examined and there are no changes to the H&P. Source Note - Cesar Lucio MD - 09/09/2023 10:57 AM EDT Inpatient consult to Cardiology Consult performed by: Cesar Lucio MD Consult ordered by: Monserrat Prince APRN-JERRY Reason for consult: chest pain History Of Present Illness: Mrs. Val Erickson is a 78 y.o. non-smoker diabetic female being consulted by the Cardiology team for chest pain. Sees Dr. Antoine in Cardiology clinic. Past medical history significant for S/P AICD, CHF, hypertension, diabetes, hyperlipidemia, CKD stage IV, neuropathy, depression. She was brought to ED [facility] on 09/09/2023 complaining of chest pain. Patient reported that she was awakened from her sleep due to sharp stabbing left chest pain. There were no associated symptoms with this. She had no acute illnesses and at her baseline status prior to this episode. She called her neighbor who came and spoke with her and decided she should call EMS and get transported to the hospital. Currently she is awake oriented in no acute distress. No chest pain, dizziness, palpitations, or dizziness. No leg swelling no abdominal pain, no other complaints. In the ED, EKG shows normal sinus rhythm old LBBB. Chest x-ray revealed history of cardiomegaly but no acute cardiopulmonary process. Aspirin 324 mg were provided in the ED. Patient was chest pain and shortness of breath free. She was admitted for further evaluation and treatment of her chest pain. Trop 20-21. BNP 309. Patient was admitted for clinical compensation. Last Recorded Vitals: Vitals: 09/09/23 0800 09/09/23 0804 09/09/23 0835 09/09/23 1016 BP: 138/88 118/64 129/75 BP Location: Patient Position: Pulse: 92 97 96 Resp: 18 18 20 20 Temp: 35.9 C (96.6 F) TempSrc: SpO2: 98% 99% 99% Weight: 121 kg (266 lb 9.6 oz) Height: 1.6 m (5' 3) Last Labs: CBC - 09/09/2023: 5:12 AM 8.9 9.8 196 31.2 CMP - 09/09/2023: 5:12 AM 9.5 _ _ --- _ _ _ _ _ PTT - 09/09/2023: 9:54 AM 1.1 13.3 31 Troponin I, High Sensitivity Date/Time Value Ref Range Status 09/09/2023 06:17 AM 21 (H) 0 - 13 ng/L Final 09/09/2023 05:12 AM 20 (H) 0 - 13 ng/L Final Troponin I Date/Time Value Ref Range Status 01/26/2022 09:18 PM 50 (H) 0 - 13 ng/L Final Comment: . Less than 99th percentile of normal range cutoff- Female and children under 18 years old <14 ng/L; Male <21 ng/L: Negative Repeat testing should be performed if clinically indicated. . Female and children under 18 years old 14-50 ng/L; Male 21-50 ng/L: Consistent with possible cardiac damage and possible increased clinical risk. Serial measurements may help to assess extent of myocardial damage. . >50 ng/L: Consistent with cardiac damage, increased clinical risk and myocardial infarction. Serial measurements may help assess extent of myocardial damage. . NOTE: Children less than 1 year old may have higher baseline troponin levels and results should be interpreted in conjunction with the overall clinical context. . NOTE: Troponin I testing is performed using a different testing methodology at [facility] than at other [facility]. Direct result comparisons should only be made within the same method. 01/26/2022 12:31 PM 42 (H) 0 - 13 ng/L Final Comment: . Less than 99th percentile of normal range cutoff- Female and children under 18 years old <14 ng/L; Male <21 ng/L: Negative Repeat testing should be performed if clinically indicated. . Female and children under 18 years old 14-50 ng/L; Male 21-50 ng/L: Consistent with possible cardiac damage and possible increased clinical risk. Serial measurements may help to assess extent of myocardial damage. . >50 ng/L: Consistent with cardiac damage, increased clinical risk and myocardial infarction. Serial measurements may help assess extent of myocardial damage. . NOTE: Children less than 1 year old may have higher baseline troponin levels and results should be interpreted in conjunction with the overall clinical context. . NOTE: Troponin I testing is performed using a different testing methodology at [facility] than at other [facility]. Direct result comparisons should only be made within the same method. repeated and verified BNP Date/Time Value Ref Range Status 12/12/2022 08:50 AM 309 (H) 0 - 99 pg/mL Final Comment: . <100 pg/mL - Heart failure unlikely 100-299 pg/mL - Intermediate probability of acute heart . failure exacerbation. Correlate with clinical . context and patient history. >=300 pg/mL - Heart Failure likely. Correlate with clinical . context and patient history. BNP testing is performed using different testing methodology at [facility] than at other [facility]. Direct result comparisons should only be made within the same method. 04/13/2022 11:17 AM 1,140 (H) 0 - 99 pg/mL Final Comment: . <100 pg/mL - Heart failure unlikely 100-299 pg/mL - Intermediate probability of acute heart . failure exacerbation. Correlate with clinical . context and patient history. >=300 pg/mL - Heart Failure likely. Correlate with clinical . context and patient history. BNP testing is performed using different testing methodology at [facility] than at other [facility]. Direct result comparisons should only be made within the same method. POCT Hemoglobin A1C Date/Time Value Ref Range Status 05/01/2023 10:41 AM 8.3 (A) 4.3 - 5.6 % Final Comment: Location:[address], [address] Point of care (POC) Hemoglobin A1c (HGBA1C) testing is intended to assess glucose control and provide a management tool for patients known to have diabetes and their healthcare providers. Target HGBA1C levels may depend on specific clinical circumstances. POC HGBA1C is not intended for use as a diagnostic or screening test; laboratory-based testing should be used for diagnostic purposes. The following information is supplemental and may not be applicable to specific diabetes management situations: The POC device nurses superintendent provides a normal range of 4.2% to 6.5% for the HGBA1C POC test. However, the [place] [employer] guidelines indicate that patients with HGBA1C in the range of 5.7% to 6.4% are at increased risk for development of diabetes and that intervention by lifestyle modification may be beneficial. A HGBA1C level greater than or equal to 6.5% is considered diagnostic of diabetes, pending confirmatory testing. Use of HGBA1C testing to evaluate glucose control may not be appropriate for patients with hemoglobin variants or other conditions (e.g. anemia) that alter red blood cell lifespan. 01/04/2023 10:42 AM 12.4 (A) 4.2 - 5.6 % Final Comment: Location:[facility], [address], [place], [address] Point of care (POC) Hemoglobin A1c (HGBA1C) testing is intended to assess glucose control and provide a management tool for patients known to have diabetes and their healthcare providers. Target HGBA1C levels may depend on specific clinical circumstances. POC HGBA1C is not intended for use as a diagnostic or screening test; laboratory-based testing should be used for diagnostic purposes. The following information is supplemental and may not be applicable to specific diabetes management situations: The POC device nurses superintendent provides a normal range of 4.2% to 6.5% for the HGBA1C POC test. However, the [place] [employer] guidelines indicate that patients with HGBA1C in the range of 5.7% to 6.4% are at increased risk for development of diabetes and that intervention by lifestyle modification may be beneficial. A HGBA1C level greater than or equal to 6.5% is considered diagnostic of diabetes, pending confirmatory testing. Use of HGBA1C testing to evaluate glucose control may not be appropriate for patients with hemoglobin variants or other conditions (e.g. anemia) that alter red blood cell lifespan. Last I/O: No intake/output data recorded. Past Cardiology Tests (Last 3 Years): EKG: ECG 12 lead 09/09/2023 (Preliminary) ECG 12 lead 09/09/2023 (Preliminary) ECG 12 Lead 12/28/2022 Echo: No results found for this or any previous visit from the past 1095 days. Ejection Fractions: No results found for: EF Cath: No results found for this or any previous visit from the past 1095 days. Stress Test: No results found for this or any previous visit from the past 1095 days. Cardiac Imaging: No results found for this or any previous visit from the past 1095 days. Past Medical History: She has a past medical history of CHF (congestive heart failure) (Multi), COPD (chronic obstructive pulmonary disease) (Multi), Diabetes mellitus (Multi), and Hypertension. Past Surgical History: She has a past surgical history that includes Cardiac defibrillator placement. Social History: She reports that she has never smoked. She has been exposed to tobacco smoke. She has never used smokeless tobacco. She reports that she does not drink alcohol and does not use drugs. Family History: Family History Problem Relation Name Age of Onset Cancer Mother Stroke Father Coronary artery disease Sister Stroke Brother Diabetes Son Cancer Son Allergies: Levofloxacin and Sulfacetamide sodium Inpatient Medications: Scheduled medications Medication Dose Route Frequency budesonide 0.5 mg nebulization BID docusate sodium 100 mg oral Daily enoxaparin 30 mg subcutaneous Daily formoterol 20 mcg nebulization BID furosemide 20 mg oral Daily gabapentin 300 mg oral BID hydrALAZINE 25 mg oral TID insulin lispro 0-5 Units subcutaneous TID metoprolol succinate XL 50 mg oral Daily polyethylene glycol 17 g oral Daily simvastatin 40 mg oral Daily tiotropium 2 puff inhalation Daily venlafaxine XR 37.5 mg oral Daily PRN medications Medication acetaminophen dextrose glucagon oxygen Continuous Medications Medication Dose Last Rate Outpatient Medications: Current Outpatient Medications Medication Instructions BD Ultra-Fine Orig Pen Needle 29 gauge x 1/2 needle docusate sodium (COLACE) 100 mg, oral, Daily epoetin zari (Epogen) 10,000 unit/mL injection 1.3 mL, subcutaneous, See admin instructions, EVERY 28 DAYS zninvdovlul-wabbkuqsh-rmszimmu (Trelegy Ellipta) 100-62.5-25 mcg blister with device 1 puff, inhalation, Daily furosemide (Lasix) 20 mg tablet 1 tablet, oral, Daily, May also take one tab po daily PRN gabapentin (NEURONTIN) 300 mg, oral, 2 times daily hydrALAZINE (APRESOLINE) 25 mg, oral, 3 times daily Lactobacillus acidophilus (PROBIOTIC ACIDOPHILUS ORAL) 1 tablet, oral, Daily Lantus U-100 Insulin 55 Units, subcutaneous, Nightly, Take as directed per insulin instructions. metoprolol succinate XL (TOPROL-XL) 50 mg, oral, Daily, Do not crush or chew. simvastatin (Zocor) 40 mg tablet Take 1 tablet (40 mg) by mouth once daily. venlafaxine XR (Effexor-XR) 37.5 mg 24 hr capsule Take 1 capsule (37.5 mg) by mouth once daily. Take with food Physical Exam: General: alert, oriented and in no acute distress HEENT: NC/AT; EOMI; PERRLA, external ear is normal Neck: supple; trachea midline; no masses; no JVD Chest: clear breath sounds bilaterally; no wheezing. NC oxygen Cardio: regular rhythm, S1S2 normal, no murmurs. ICD L sublcavian Abdomen: Soft, non-tender, non-distension, no organomegaly Extremities: Edema 1+/3+ LE b/l Neuro: Grossly intact Psychiatric: Normal mood and affect Assessment/Plan Mrs. Val Erickson is a 78 y.o. non-smoker diabetic female being consulted by the Cardiology team for chest pain. Sees Dr. Antoine in Cardiology clinic. Past medical history significant for S/P AICD, CHF, hypertension, diabetes, hyperlipidemia, CKD stage IV, neuropathy, depression. She was brought to ED [facility] on 09/09/2023 complaining of chest pain. Patient reported that she was awakened from her sleep due to sharp stabbing left chest pain. There were no associated symptoms with this. She had no acute illnesses and at her baseline status prior to this episode. She called her neighbor who came and spoke with her and decided she should call EMS and get transported to the hospital. Currently she is awake oriented in no acute distress. No chest pain, dizziness, palpitations, or dizziness. No leg swelling no abdominal pain, no other complaints. In the ED, EKG shows normal sinus rhythm old LBBB. Chest x-ray revealed history of cardiomegaly but no acute cardiopulmonary process. Aspirin 324 mg were provided in the ED. Patient was chest pain and shortness of breath free. She was admitted for further evaluation and treatment of her chest pain. Trop 20-21. BNP 309. Patient was admitted for clinical compensation. Assessment # Chest pain - Trop 20-21 - BNP 309 - Chest pain for 45 min overnight. - Keep ASA, high intensity statin, beta-darinel. - The natural history of atherosclerosis was discussed with the patient. The treatment options including GDMT, percutaneous intervention or surgical intervention were discussed with the patient. All the risks, benefits and alternative procedures were discussed. Complications of the procedure were also discussed, including but not limited to risk of bleeding, stroke, infarct, infection, urgent cardiac surgery or . All questions were answered and the informed consent was obtained. After aforementioned testing and consultation, Left Heart Catheterization with potential Percutaneous Coronary Intervention would be a reasonable approach if the patient is candidate. - Please keep NPO. - Please keep ASA, Statin. # Heart Failure - Echo (10/04/2022): 1. Left ventricular systolic function is moderately decreased with a 30-35% estimated ejection fraction. 2. There is global hypokinesis of the left ventricle with minor regional variations. 3. There is a trivial pericardial effusion 4. There is no evidence of cardiac tamponade. 5. RVSP within normal limits. - Patient continues to be volume overloaded based on her clinical presentation. We suggest to keep diuresing. - Keep daily weights. Patient's admission weight is lb. - Low sodium diet (2g). - 1500mL fluid restriction. - Strict I&Os. - Electrolyte control and daily BMP including magnesium. - General recommendations for heart failure, including low-sodium diet, fluid restriction, daily weight and adherence to medication. - Keep GDMT. # Hypertension - Controlled blood pressure. - Keep current medications. - Patient counseled to keep a healthy lifestyle including regular exercise and low-sodium diet. - Recommended home blood pressure monitoring. - Goal of BP < 130/80mmHg. # Diabetes - Counseled on healthy diet and regular exercises. - Discussed need for weight loss and the benefits. - Keep current medications. - ISS. # Hyperlipidemia - Controlled by PCP. - Keep home medication with Simvastatin 40mg daily. - Counseled on healthy diet and regular exercise. Thank you for allowing me to participate in the care of this patient. Please reach me out if you have any questions or if you need any clarifications regarding the patient's care. Peripheral IV 09/09/23 20 G Right Forearm (Active) Site Assessment Clean;Dry;Intact 09/09/23 0505 Number of days: 0 Code Status: DNR and No Intubation Cesar Lucio MD Cardiology History Of Present 78-year-old female with past medical history of CHF, DM 2 with CKD 4, hypertension, neuropathy, depression, and hypertension who presents to the ED with chief complaint of chest pain. Serial troponins were slightly elevated but at patient's baseline. EKG showed no acute findings. Chest x-ray revealed history of cardiomegaly but no acute cardiopulmonary process. Aspirin 324 mg were provided in the ED. Patient was chest pain and shortness of breath free. She was admitted for further evaluation and treatment of her chest pain. Patient reports she was awakened from her sleep due to sharp stabbing left chest pain. There were no associated symptoms with this. She had no acute illnesses and at her baseline status prior to this episode. She called her neighbor who came and spoke with her and decided she should call EMS and get transported to the hospital. Currently she is awake oriented in no acute distress. No chest pain, dizziness, palpitations, or dizziness. No leg swelling no abdominal pain, no other complaints. Past Medical History Past Medical History: Diagnosis Date CHF (congestive heart failure) (Multi) COPD (chronic obstructive pulmonary disease) (Multi) Diabetes mellitus (Multi) Hypertension Surgical History Past Surgical History: Procedure Laterality Date CARDIAC DEFIBRILLATOR PLACEMENT Social History She reports that she has never smoked. She has been exposed to tobacco smoke. She has never used smokeless tobacco. She reports that she does not drink alcohol and does not use drugs. Family History Family History Problem Relation Name Age of Onset Cancer Mother Stroke Father Coronary artery disease Sister Stroke Brother Diabetes Son Cancer Son Allergies Levofloxacin and Sulfacetamide sodium Review of Systems Constitutional: Negative. HENT: Negative. Eyes: Negative. Respiratory: Negative. Cardiovascular: Negative. Gastrointestinal: Negative. Endocrine: Negative. Genitourinary: Negative. Musculoskeletal: Positive for arthralgias. Allergic/Immunologic: Negative. Neurological: Negative. Hematological: Negative. Psychiatric/Behavioral: Negative. Physical Exam Constitutional: General: She is not in acute distress. Appearance: She is well-developed, obese HENT: Head: Normocephalic and atraumatic. Eyes: Conjunctiva/sclera: Conjunctivae normal. Cardiovascular: Rate and Rhythm: Normal rate and regular rhythm. Heart sounds: No murmur heard. Left chest with pacemaker/defibrillator and port Pulmonary: Effort: Pulmonary effort is normal. No respiratory distress. Breath sounds: Normal breath sounds. Abdominal: Palpations: Abdomen is soft. Tenderness: There is no abdominal tenderness. Musculoskeletal: General: No swelling. Cervical back: Neck supple. Skin: General: Skin is warm and dry. Capillary Refill: Capillary refill takes less than 2 seconds. Neurological: Mental Status: She is alert. Psychiatric: Mood and Affect: Mood normal. Last Recorded Vitals Blood pressure 118/64, pulse 97, temperature 35.9 C (96.6 F), resp. rate 20, height 1.6 m (5' 3), weight 121 kg (266 lb 9.6 oz), SpO2 99%. Relevant Results Results for orders placed or performed during the hospital encounter of 09/09/23 (from the past 24 hour(s)) ECG 12 lead Result Value Ref Range Ventricular Rate 95 BPM Atrial Rate 95 BPM MT Interval 218 ms QRS Duration 132 ms QT Interval 390 ms QTC Calculation(Bazett) 490 ms P [place] 63 degrees R [place] -38 degrees T [place] 145 degrees QRS Count 16 beats Q Onset 205 ms P Onset 96 ms P Offset 160 ms T Offset 400 ms QTC Fredericia 454 ms CBC and Auto Differential Result Value Ref Range WBC 8.9 4.4 - 11.3 x10*3/uL nRBC 0.0 0.0 - 0.0 /100 WBCs RBC 3.13 (L) 4.00 - 5.20 x10*6/uL Hemoglobin 9.8 (L) 12.0 - 16.0 g/dL Hematocrit 31.2 (L) 36.0 - 46.0 % MCV 100 80 - 100 fL MCH 31.3 26.0 - 34.0 pg MCHC 31.4 (L) 32.0 - 36.0 g/dL RDW 14.0 11.5 - 14.5 % Platelets 196 150 - 450 x10*3/uL Neutrophils % 73.1 40.0 - 80.0 % Immature Granulocytes %, Automated 0.3 0.0 - 0.9 % Lymphocytes % 14.8 13.0 - 44.0 % Monocytes % 7.5 2.0 - 10.0 % Eosinophils % 3.7 0.0 - 6.0 % Basophils % 0.6 0.0 - 2.0 % Neutrophils Absolute 6.50 (H) 1.60 - 5.50 x10*3/uL Immature Granulocytes Absolute, Automated 0.03 0.00 - 0.50 x10*3/uL Lymphocytes Absolute 1.32 0.80 - 3.00 x10*3/uL Monocytes Absolute 0.67 0.05 - 0.80 x10*3/uL Eosinophils Absolute 0.33 0.00 - 0.40 x10*3/uL Basophils Absolute 0.05 0.00 - 0.10 x10*3/uL Basic metabolic panel Result Value Ref Range Glucose 98 74 - 99 mg/dL Sodium 138 136 - 145 mmol/L Potassium 4.2 3.5 - 5.3 mmol/L Chloride 101 98 - 107 mmol/L Bicarbonate 28 21 - 32 mmol/L Anion Gap 13 10 - 20 mmol/L Urea Nitrogen 43 (H) 6 - 23 mg/dL Creatinine 2.21 (H) 0.50 - 1.05 mg/dL eGFR 22 (L) >60 mL/min/1.73m*2 Calcium 9.5 8.6 - 10.3 mg/dL Troponin I, High Sensitivity, Initial Result Value Ref Range Troponin I, High Sensitivity 20 (H) 0 - 13 ng/L ECG 12 lead Result Value Ref Range Ventricular Rate 88 BPM Atrial Rate 88 BPM MT Interval 244 ms QRS Duration 130 ms QT Interval 400 ms QTC Calculation(Bazett) 484 ms P [place] 60 degrees R [place] -50 degrees T [place] 197 degrees QRS Count 14 beats Q Onset 216 ms P Onset 94 ms P Offset 164 ms T Offset 416 ms QTC Fredericia 454 ms Troponin, High Sensitivity, 1 Hour Result Value Ref Range Troponin I, High Sensitivity 21 (H) 0 - 13 ng/L 78-year-old female with past medical history of CHF, DM 2 with CKD 4, hypertension, neuropathy, depression, and hypertension who presents to the ED with chief complaint of chest pain. Serial troponins were slightly elevated but at patient's baseline. EKG showed no acute findings. Chest x-ray revealed history of cardiomegaly but no acute cardiopulmonary process. Aspirin 324 mg were provided in the ED. Patient was chest pain and shortness of breath free. She was admitted for further evaluation and treatment of her chest pain. Assessment/Plan Principal Problem: Chest pain Active Problems: Chest pain, unspecified type -Consult cardiology -Telemetry -Loading dose aspirin given in ED -Serial troponins at baseline -Chest x-ray negative for acute findings -EKG without acute changes History of CHF -Echo from 10/04/2022 reveal EF 30 to 35% -Status post AICD -No signs symptoms of fluid overload -Lasix 20 mg daily, Toprol 50 mg daily, simvastatin 40 mg daily DM2 with CKD 4 with neuropathy -Last A1c 8.3 -Carb controlled diet -Check blood sugars ACHS sliding scale insulin -On gabapentin for neuropathic pain -GFR baseline appears to be low 20s creatinine about 2.05-2.38 -Repeat BMP in a.m. -Patient follows with nephrology in the community Unsteady gait -Uses walkers and canes at home -Consult PT OT COPD -Continue inhalers -Keep SpO2 greater than 90% -Uses 2 to 4 L of oxygen at at bedtime -Patient follows with pulmonology in the community DVT prophylaxis Lovenox and SCDs Disposition 24 to 48 hours when medically stable documented in this encounter [facility] Work Phone: 09-09-2023 Consult note Associated Order (s): Inpatient consult to Cardiology Inpatient consult to Cardiology Consult performed by: Cesar Lucio MD Consult ordered by: FLORIN Harkins Reason for consult: chest pain History Of Present Illness: Mrs. Val Erickson is a 78 y.o. non-smoker diabetic female being consulted by the Cardiology team for chest pain. Sees Dr. Antoine in Cardiology clinic. Past medical history significant for S/P AICD, CHF, hypertension, diabetes, hyperlipidemia, CKD stage IV, neuropathy, depression. She was brought to ED [facility] on 09/09/2023 complaining of chest pain. Patient reported that she was awakened from her sleep due to sharp stabbing left chest pain. There were no associated symptoms with this. She had no acute illnesses and at her baseline status prior to this episode. She called her neighbor who came and spoke with her and decided she should call EMS and get transported to the hospital. Currently she is awake oriented in no acute distress. No chest pain, dizziness, palpitations, or dizziness. No leg swelling no abdominal pain, no other complaints. In the ED, EKG shows normal sinus rhythm old LBBB. Chest x-ray revealed history of cardiomegaly but no acute cardiopulmonary process. Aspirin 324 mg were provided in the ED. Patient was chest pain and shortness of breath free. She was admitted for further evaluation and treatment of her chest pain. Trop 20-21. BNP 309. Patient was admitted for clinical compensation. Last Recorded Vitals: Vitals: 09/09/23 0800 09/09/23 0804 09/09/23 0835 09/09/23 1016 BP: 138/88 118/64 129/75 BP Location: Patient Position: Pulse: 92 97 96 Resp: 18 18 20 20 Temp: 35.9 C (96.6 F) TempSrc: SpO2: 98% 99% 99% Weight: 121 kg (266 lb 9.6 oz) Height: 1.6 m (5' 3) Last Labs: CBC - 09/09/2023: 5:12 AM 8.9 9.8 196 31.2 CMP - 09/09/2023: 5:12 AM 9.5 _ _ --- _ _ _ _ _ PTT - 09/09/2023: 9:54 AM 1.1 13.3 31 Troponin I, High Sensitivity Date/Time Value Ref Range Status 09/09/2023 06:17 AM 21 (H) 0 - 13 ng/L Final 09/09/2023 05:12 AM 20 (H) 0 - 13 ng/L Final Troponin I Date/Time Value Ref Range Status 01/26/2022 09:18 PM 50 (H) 0 - 13 ng/L Final Comment: . Less than 99th percentile of normal range cutoff- Female and children under 18 years old <14 ng/L; Male <21 ng/L: Negative Repeat testing should be performed if clinically indicated. . Female and children under 18 years old 14-50 ng/L; Male 21-50 ng/L: Consistent with possible cardiac damage and possible increased clinical risk. Serial measurements may help to assess extent of myocardial damage. . >50 ng/L: Consistent with cardiac damage, increased clinical risk and myocardial infarction. Serial measurements may help assess extent of myocardial damage. . NOTE: Children less than 1 year old may have higher baseline troponin levels and results should be interpreted in conjunction with the overall clinical context. . NOTE: Troponin I testing is performed using a different testing methodology at [facility] than at other [facility]. Direct result comparisons should only be made within the same method. 01/26/2022 12:31 PM 42 (H) 0 - 13 ng/L Final Comment: . Less than 99th percentile of normal range cutoff- Female and children under 18 years old <14 ng/L; Male <21 ng/L: Negative Repeat testing should be performed if clinically indicated. . Female and children under 18 years old 14-50 ng/L; Male 21-50 ng/L: Consistent with possible cardiac damage and possible increased clinical risk. Serial measurements may help to assess extent of myocardial damage. . >50 ng/L: Consistent with cardiac damage, increased clinical risk and myocardial infarction. Serial measurements may help assess extent of myocardial damage. . NOTE: Children less than 1 year old may have higher baseline troponin levels and results should be interpreted in conjunction with the overall clinical context. . NOTE: Troponin I testing is performed using a different testing methodology at [facility] than at other [facility]. Direct result comparisons should only be made within the same method. repeated and verified BNP Date/Time Value Ref Range Status 12/12/2022 08:50 AM 309 (H) 0 - 99 pg/mL Final Comment: . <100 pg/mL - Heart failure unlikely 100-299 pg/mL - Intermediate probability of acute heart . failure exacerbation. Correlate with clinical . context and patient history. >=300 pg/mL - Heart Failure likely. Correlate with clinical . context and patient history. BNP testing is performed using different testing methodology at [facility] than at other [facility]. Direct result comparisons should only be made within the same method. 04/13/2022 11:17 AM 1,140 (H) 0 - 99 pg/mL Final Comment: . <100 pg/mL - Heart failure unlikely 100-299 pg/mL - Intermediate probability of acute heart . failure exacerbation. Correlate with clinical . context and patient history. >=300 pg/mL - Heart Failure likely. Correlate with clinical . context and patient history. BNP testing is performed using different testing methodology at [facility] than at other [facility]. Direct result comparisons should only be made within the same method. POCT Hemoglobin A1C Date/Time Value Ref Range Status 05/01/2023 10:41 AM 8.3 (A) 4.3 - 5.6 % Final Comment: Location:[address], [address] Point of care (POC) Hemoglobin A1c (HGBA1C) testing is intended to assess glucose control and provide a management tool for patients known to have diabetes and their healthcare providers. Target HGBA1C levels may depend on specific clinical circumstances. POC HGBA1C is not intended for use as a diagnostic or screening test; laboratory-based testing should be used for diagnostic purposes. The following information is supplemental and may not be applicable to specific diabetes management situations: The POC device nurses superintendent provides a normal range of 4.2% to 6.5% for the HGBA1C POC test. However, the [place] [employer] guidelines indicate that patients with HGBA1C in the range of 5.7% to 6.4% are at increased risk for development of diabetes and that intervention by lifestyle modification may be beneficial. A HGBA1C level greater than or equal to 6.5% is considered diagnostic of diabetes, pending confirmatory testing. Use of HGBA1C testing to evaluate glucose control may not be appropriate for patients with hemoglobin variants or other conditions (e.g. anemia) that alter red blood cell lifespan. 01/04/2023 10:42 AM 12.4 (A) 4.2 - 5.6 % Final Comment: Location:[facility], [address] [place] [address], [place], [address] Point of care (POC) Hemoglobin A1c (HGBA1C) testing is intended to assess glucose control and provide a management tool for patients known to have diabetes and their healthcare providers. Target HGBA1C levels may depend on specific clinical circumstances. POC HGBA1C is not intended for use as a diagnostic or screening test; laboratory-based testing should be used for diagnostic purposes. The following information is supplemental and may not be applicable to specific diabetes management situations: The POC device nurses superintendent provides a normal range of 4.2% to 6.5% for the HGBA1C POC test. However, the [place] [employer] guidelines indicate that patients with HGBA1C in the range of 5.7% to 6.4% are at increased risk for development of diabetes and that intervention by lifestyle modification may be beneficial. A HGBA1C level greater than or equal to 6.5% is considered diagnostic of diabetes, pending confirmatory testing. Use of HGBA1C testing to evaluate glucose control may not be appropriate for patients with hemoglobin variants or other conditions (e.g. anemia) that alter red blood cell lifespan. Last I/O: No intake/output data recorded. Past Cardiology Tests (Last 3 Years): EKG: ECG 12 lead 09/09/2023 (Preliminary) ECG 12 lead 09/09/2023 (Preliminary) ECG 12 Lead 12/28/2022 Echo: No results found for this or any previous visit from the past 1095 days. Ejection Fractions: No results found for: EF Cath: No results found for this or any previous visit from the past 1095 days. Stress Test: No results found for this or any previous visit from the past 1095 days. Cardiac Imaging: No results found for this or any previous visit from the past 1095 days. Past Medical History: She has a past medical history of CHF (congestive heart failure) (Multi), COPD (chronic obstructive pulmonary disease) (Multi), Diabetes mellitus (Multi), and Hypertension. Past Surgical History: She has a past surgical history that includes Cardiac defibrillator placement. Social History: She reports that she has never smoked. She has been exposed to tobacco smoke. She has never used smokeless tobacco. She reports that she does not drink alcohol and does not use drugs. Family History: Family History Problem Relation Name Age of Onset Cancer Mother Stroke Father Coronary artery disease Sister Stroke Brother Diabetes Son Cancer Son Allergies: Levofloxacin and Sulfacetamide sodium Inpatient Medications: Scheduled medications Medication Dose Route Frequency budesonide 0.5 mg nebulization BID docusate sodium 100 mg oral Daily enoxaparin 30 mg subcutaneous Daily formoterol 20 mcg nebulization BID furosemide 20 mg oral Daily gabapentin 300 mg oral BID hydrALAZINE 25 mg oral TID insulin lispro 0-5 Units subcutaneous TID metoprolol succinate XL 50 mg oral Daily polyethylene glycol 17 g oral Daily simvastatin 40 mg oral Daily tiotropium 2 puff inhalation Daily venlafaxine XR 37.5 mg oral Daily PRN medications Medication acetaminophen dextrose glucagon oxygen Continuous Medications Medication Dose Last Rate Outpatient Medications: Current Outpatient Medications Medication Instructions BD Ultra-Fine Orig Pen Needle 29 gauge x 1/2 needle docusate sodium (COLACE) 100 mg, oral, Daily epoetin zari (Epogen) 10,000 unit/mL injection 1.3 mL, subcutaneous, See admin instructions, EVERY 28 DAYS lupnzyasvgw-xudkeqfwx-ucybrpyn (Trelegy Ellipta) 100-62.5-25 mcg blister with device 1 puff, inhalation, Daily furosemide (Lasix) 20 mg tablet 1 tablet, oral, Daily, May also take one tab po daily PRN gabapentin (NEURONTIN) 300 mg, oral, 2 times daily hydrALAZINE (APRESOLINE) 25 mg, oral, 3 times daily Lactobacillus acidophilus (PROBIOTIC ACIDOPHILUS ORAL) 1 tablet, oral, Daily Lantus U-100 Insulin 55 Units, subcutaneous, Nightly, Take as directed per insulin instructions. metoprolol succinate XL (TOPROL-XL) 50 mg, oral, Daily, Do not crush or chew. simvastatin (Zocor) 40 mg tablet Take 1 tablet (40 mg) by mouth once daily. venlafaxine XR (Effexor-XR) 37.5 mg 24 hr capsule Take 1 capsule (37.5 mg) by mouth once daily. Take with food Physical Exam: General: alert, oriented and in no acute distress. Obesity HEENT: NC/AT; EOMI; PERRLA, external ear is normal Neck: supple; trachea midline; no masses; no JVD Chest: clear breath sounds bilaterally; no wheezing. NC oxygen Cardio: regular rhythm, S1S2 normal, no murmurs. ICD L subclavian Abdomen: Soft, non-tender, non-distension, no organomegaly Extremities: Edema 1+/3+ LE b/l Neuro: Grossly intact Psychiatric: Normal mood and affect Assessment/Plan Mrs. Val Erickson is a 78 y.o. non-smoker diabetic female being consulted by the Cardiology team for chest pain. Sees Dr. Antoine in Cardiology clinic. Past medical history significant for S/P AICD, CHF, hypertension, diabetes, hyperlipidemia, CKD stage IV, neuropathy, depression. She was brought to ED [facility] on 09/09/2023 complaining of chest pain. Patient reported that she was awakened from her sleep due to sharp stabbing left chest pain. There were no associated symptoms with this. She had no acute illnesses and at her baseline status prior to this episode. She called her neighbor who came and spoke with her and decided she should call EMS and get transported to the hospital. Currently she is awake oriented in no acute distress. No chest pain, dizziness, palpitations, or dizziness. No leg swelling no abdominal pain, no other complaints. In the ED, EKG shows normal sinus rhythm old LBBB. Chest x-ray revealed history of cardiomegaly but no acute cardiopulmonary process. Aspirin 324 mg were provided in the ED. Patient was chest pain and shortness of breath free. She was admitted for further evaluation and treatment of her chest pain. Trop 20-21. BNP 309. Patient was admitted for clinical compensation. Assessment # Chest pain - Trop 20-21 - BNP 309 - Chest pain for 45 min overnight. - EKG showing sinus rhythm and LBBB. - Keep ASA, high intensity statin, beta-darinel. - We will request Right and Left Heart Catheterization. - The natural history of atherosclerosis was discussed with the patient. The treatment options including GDMT, percutaneous intervention or surgical intervention were discussed with the patient. All the risks, benefits and alternative procedures were discussed. Complications of the procedure were also discussed, including but not limited to risk of bleeding, stroke, infarct, infection, urgent cardiac surgery or . All questions were answered and the informed consent was obtained. After aforementioned testing and consultation, Left Heart Catheterization with potential Percutaneous Coronary Intervention would be a reasonable approach if the patient is candidate. - Please keep NPO. - Would suggest to keep ASA, high intensity statin, beta-darinel. # Heart Failure with reduced LV systolic function (LVEF 30-35%) / S/P ICD - Echo (10/04/2022): 1. Left ventricular systolic function is moderately decreased with a 30-35% estimated ejection fraction. 2. There is global hypokinesis of the left ventricle with minor regional variations. 3. There is a trivial pericardial effusion 4. There is no evidence of cardiac tamponade. 5. RVSP within normal limits. - Patient continues to be volume overloaded based on her clinical presentation. We suggest to keep diuresing. - Keep daily weights. Patient's admission weight is lb. - Low sodium diet (2g). - 1500mL fluid restriction. - Strict I&Os. - Electrolyte control and daily BMP including magnesium. - General recommendations for heart failure, including low-sodium diet, fluid restriction, daily weight and adherence to medication. - Keep GDMT with hydralazine 25mg q8h, Metoprolol succinate 50mg daily. - Keep Furosemide PO. - Patient not on additional diuretics due to CKD - Discuss starting empaglifozin with Nephrology team. - Follow up with Cardiology team as outpatient - Dr. Antoine. # CKD stage IV - Crea 2.2 - Follow up with Nephrology. # Hypertension - Controlled blood pressure. - Keep current medications. - Patient counseled to keep a healthy lifestyle including regular exercise and low-sodium diet. - Recommended home blood pressure monitoring. - Goal of BP < 130/80mmHg. # Diabetes - Counseled on healthy diet and regular exercises. - Discussed need for weight loss and the benefits. - Keep current medications. - ISS. # Hyperlipidemia - Controlled by PCP. - Keep home medication with Simvastatin 40mg daily. - Counseled on healthy diet and regular exercise. Thank you for allowing me to participate in the care of this patient. Please reach me out if you have any questions or if you need any clarifications regarding the patient's care. Peripheral IV 09/09/23 20 G Right Forearm (Active) Site Assessment Clean;Dry;Intact 09/09/23 0505 Number of days: 0 Code Status: DNR and No Intubation Cesar Lucio MD Cardiology [facility] Work Phone: 09-09-2023 Consult note Associated Order (s): Inpatient consult to Cardiology Inpatient consult to Cardiology Consult performed by: Cesar Lucio MD Consult ordered by: Monserrat Prince, DAHLIA-JERRY Reason for consult: chest pain History Of Present Illness: Mrs. Val Erickson is a 78 y.o. non-smoker diabetic female being consulted by the Cardiology team for chest pain. Sees Dr. Antoine in Cardiology clinic. Past medical history significant for S/P AICD, CHF, hypertension, diabetes, hyperlipidemia, CKD stage IV, neuropathy, depression. She was brought to ED [facility] on 09/09/2023 complaining of chest pain. Patient reported that she was awakened from her sleep due to sharp stabbing left chest pain. There were no associated symptoms with this. She had no acute illnesses and at her baseline status prior to this episode. She called her neighbor who came and spoke with her and decided she should call EMS and get transported to the hospital. Currently she is awake oriented in no acute distress. No chest pain, dizziness, palpitations, or dizziness. No leg swelling no abdominal pain, no other complaints. In the ED, EKG shows normal sinus rhythm old LBBB. Chest x-ray revealed history of cardiomegaly but no acute cardiopulmonary process. Aspirin 324 mg were provided in the ED. Patient was chest pain and shortness of breath free. She was admitted for further evaluation and treatment of her chest pain. Trop 20-21. BNP 309. Patient was admitted for clinical compensation. Last Recorded Vitals: Vitals: 09/09/23 0800 09/09/23 0804 09/09/23 0835 09/09/23 1016 BP: 138/88 118/64 129/75 BP Location: Patient Position: Pulse: 92 97 96 Resp: 18 18 20 20 Temp: 35.9 C (96.6 F) TempSrc: SpO2: 98% 99% 99% Weight: 121 kg (266 lb 9.6 oz) Height: 1.6 m (5' 3) Last Labs: CBC - 09/09/2023: 5:12 AM 8.9 9.8 196 31.2 CMP - 09/09/2023: 5:12 AM 9.5 _ _ --- _ _ _ _ _ PTT - 09/09/2023: 9:54 AM 1.1 13.3 31 Troponin I, High Sensitivity Date/Time Value Ref Range Status 09/09/2023 06:17 AM 21 (H) 0 - 13 ng/L Final 09/09/2023 05:12 AM 20 (H) 0 - 13 ng/L Final Troponin I Date/Time Value Ref Range Status 01/26/2022 09:18 PM 50 (H) 0 - 13 ng/L Final Comment: . Less than 99th percentile of normal range cutoff- Female and children under 18 years old <14 ng/L; Male <21 ng/L: Negative Repeat testing should be performed if clinically indicated. . Female and children under 18 years old 14-50 ng/L; Male 21-50 ng/L: Consistent with possible cardiac damage and possible increased clinical risk. Serial measurements may help to assess extent of myocardial damage. . >50 ng/L: Consistent with cardiac damage, increased clinical risk and myocardial infarction. Serial measurements may help assess extent of myocardial damage. . NOTE: Children less than 1 year old may have higher baseline troponin levels and results should be interpreted in conjunction with the overall clinical context. . NOTE: Troponin I testing is performed using a different testing methodology at [facility] than at other [facility]. Direct result comparisons should only be made within the same method. 01/26/2022 12:31 PM 42 (H) 0 - 13 ng/L Final Comment: . Less than 99th percentile of normal range cutoff- Female and children under 18 years old <14 ng/L; Male <21 ng/L: Negative Repeat testing should be performed if clinically indicated. . Female and children under 18 years old 14-50 ng/L; Male 21-50 ng/L: Consistent with possible cardiac damage and possible increased clinical risk. Serial measurements may help to assess extent of myocardial damage. . >50 ng/L: Consistent with cardiac damage, increased clinical risk and myocardial infarction. Serial measurements may help assess extent of myocardial damage. . NOTE: Children less than 1 year old may have higher baseline troponin levels and results should be interpreted in conjunction with the overall clinical context. . NOTE: Troponin I testing is performed using a different testing methodology at [facility] than at other [facility]. Direct result comparisons should only be made within the same method. repeated and verified BNP Date/Time Value Ref Range Status 12/12/2022 08:50 AM 309 (H) 0 - 99 pg/mL Final Comment: . <100 pg/mL - Heart failure unlikely 100-299 pg/mL - Intermediate probability of acute heart . failure exacerbation. Correlate with clinical . context and patient history. >=300 pg/mL - Heart Failure likely. Correlate with clinical . context and patient history. BNP testing is performed using different testing methodology at [facility] than at other [facility]. Direct result comparisons should only be made within the same method. 04/13/2022 11:17 AM 1,140 (H) 0 - 99 pg/mL Final Comment: . <100 pg/mL - Heart failure unlikely 100-299 pg/mL - Intermediate probability of acute heart . failure exacerbation. Correlate with clinical . context and patient history. >=300 pg/mL - Heart Failure likely. Correlate with clinical . context and patient history. BNP testing is performed using different testing methodology at [facility] than at [facility]. Direct result comparisons should only be made within the same method. POCT Hemoglobin A1C Date/Time Value Ref Range Status 05/01/2023 10:41 AM 8.3 (A) 4.3 - 5.6 % Final Comment: Location:[address], [address] Point of care (POC) Hemoglobin A1c (HGBA1C) testing is intended to assess glucose control and provide a management tool for patients known to have diabetes and their healthcare providers. Target HGBA1C levels may depend on specific clinical circumstances. POC HGBA1C is not intended for use as a diagnostic or screening test; laboratory-based testing should be used for diagnostic purposes. The following information is supplemental and may not be applicable to specific diabetes management situations: The POC device nurses superintendent provides a normal range of 4.2% to 6.5% for the HGBA1C POC test. However, the [place] Diabetes Association guidelines indicate that patients with HGBA1C in the range of 5.7% to 6.4% are at increased risk for development of diabetes and that intervention by lifestyle modification may be beneficial. A HGBA1C level greater than or equal to 6.5% is considered diagnostic of diabetes, pending confirmatory testing. Use of HGBA1C testing to evaluate glucose control may not be appropriate for patients with hemoglobin variants or other conditions (e.g. anemia) that alter red blood cell lifespan. 01/04/2023 10:42 AM 12.4 (A) 4.2 - 5.6 % Final Comment: Location:[facility], [address] [place] [address], [place], [address] Point of care (POC) Hemoglobin A1c (HGBA1C) testing is intended to assess glucose control and provide a management tool for patients known to have diabetes and their healthcare providers. Target HGBA1C levels may depend on specific clinical circumstances. POC HGBA1C is not intended for use as a diagnostic or screening test; laboratory-based testing should be used for diagnostic purposes. The following information is supplemental and may not be applicable to specific diabetes management situations: The POC device nurses superintendent provides a normal range of 4.2% to 6.5% for the HGBA1C POC test. However, the [place] Diabetes Association guidelines indicate that patients with HGBA1C in the range of 5.7% to 6.4% are at increased risk for development of diabetes and that intervention by lifestyle modification may be beneficial. A HGBA1C level greater than or equal to 6.5% is considered diagnostic of diabetes, pending confirmatory testing. Use of HGBA1C testing to evaluate glucose control may not be appropriate for patients with hemoglobin variants or other conditions (e.g. anemia) that alter red blood cell lifespan. Last I/O: No intake/output data recorded. Past Cardiology Tests (Last 3 Years): EKG: ECG 12 lead 09/09/2023 (Preliminary) ECG 12 lead 09/09/2023 (Preliminary) ECG 12 Lead 12/28/2022 Echo: No results found for this or any previous visit from the past 1095 days. Ejection Fractions: No results found for: EF Cath: No results found for this or any previous visit from the past 1095 days. Stress Test: No results found for this or any previous visit from the past 1095 days. Cardiac Imaging: No results found for this or any previous visit from the past 1095 days. Past Medical History: She has a past medical history of CHF (congestive heart failure) (Multi), COPD (chronic obstructive pulmonary disease) (Multi), Diabetes mellitus (Multi), and Hypertension. Past Surgical History: She has a past surgical history that includes Cardiac defibrillator placement. Social History: She reports that she has never smoked. She has been exposed to tobacco smoke. She has never used smokeless tobacco. She reports that she does not drink alcohol and does not use drugs. Family History: Family History Problem Relation Name Age of Onset Cancer Mother Stroke Father Coronary artery disease Sister Stroke Brother Diabetes Son Cancer Son Allergies: Levofloxacin and Sulfacetamide sodium Inpatient Medications: Scheduled medications Medication Dose Route Frequency budesonide 0.5 mg nebulization BID docusate sodium 100 mg oral Daily enoxaparin 30 mg subcutaneous Daily formoterol 20 mcg nebulization BID furosemide 20 mg oral Daily gabapentin 300 mg oral BID hydrALAZINE 25 mg oral TID insulin lispro 0-5 Units subcutaneous TID metoprolol succinate XL 50 mg oral Daily polyethylene glycol 17 g oral Daily simvastatin 40 mg oral Daily tiotropium 2 puff inhalation Daily venlafaxine XR 37.5 mg oral Daily PRN medications Medication acetaminophen dextrose glucagon oxygen Continuous Medications Medication Dose Last Rate Outpatient Medications: Current Outpatient Medications Medication Instructions BD Ultra-Fine Orig Pen Needle 29 gauge x 1/2 needle docusate sodium (COLACE) 100 mg, oral, Daily epoetin zari (Epogen) 10,000 unit/mL injection 1.3 mL, subcutaneous, See admin instructions, EVERY 28 DAYS wpjruxgvysh-mssgksqwh-njsihniy (Trelegy Ellipta) 100-62.5-25 mcg blister with device 1 puff, inhalation, Daily furosemide (Lasix) 20 mg tablet 1 tablet, oral, Daily, May also take one tab po daily PRN gabapentin (NEURONTIN) 300 mg, oral, 2 times daily hydrALAZINE (APRESOLINE) 25 mg, oral, 3 times daily Lactobacillus acidophilus (PROBIOTIC ACIDOPHILUS ORAL) 1 tablet, oral, Daily Lantus U-100 Insulin 55 Units, subcutaneous, Nightly, Take as directed per insulin instructions. metoprolol succinate XL (TOPROL-XL) 50 mg, oral, Daily, Do not crush or chew. simvastatin (Zocor) 40 mg tablet Take 1 tablet (40 mg) by mouth once daily. venlafaxine XR (Effexor-XR) 37.5 mg 24 hr capsule Take 1 capsule (37.5 mg) by mouth once daily. Take with food Physical Exam: General: alert, oriented and in no acute distress. Obesity HEENT: NC/AT; EOMI; PERRLA, external ear is normal Neck: supple; trachea midline; no masses; no JVD Chest: clear breath sounds bilaterally; no wheezing. NC oxygen Cardio: regular rhythm, S1S2 normal, no murmurs. ICD L subclavian Abdomen: Soft, non-tender, non-distension, no organomegaly Extremities: Edema 1+/3+ LE b/l Neuro: Grossly intact Psychiatric: Normal mood and affect Assessment/Plan Mrs. Val Erickson is a 78 y.o. non-smoker diabetic female being consulted by the Cardiology team for chest pain. Sees Dr. Antoine in Cardiology clinic. Past medical history significant for S/P AICD, CHF, hypertension, diabetes, hyperlipidemia, CKD stage IV, neuropathy, depression. She was brought to ED [facility] on 09/09/2023 complaining of chest pain. Patient reported that she was awakened from her sleep due to sharp stabbing left chest pain. There were no associated symptoms with this. She had no acute illnesses and at her baseline status prior to this episode. She called her neighbor who came and spoke with her and decided she should call EMS and get transported to the hospital. Currently she is awake oriented in no acute distress. No chest pain, dizziness, palpitations, or dizziness. No leg swelling no abdominal pain, no other complaints. In the ED, EKG shows normal sinus rhythm old LBBB. Chest x-ray revealed history of cardiomegaly but no acute cardiopulmonary process. Aspirin 324 mg were provided in the ED. Patient was chest pain and shortness of breath free. She was admitted for further evaluation and treatment of her chest pain. Trop 20-21. BNP 309. Patient was admitted for clinical compensation. Assessment # Chest pain - Trop 20-21 - BNP 309 - Chest pain for 45 min overnight. - EKG showing sinus rhythm and LBBB. - Keep ASA, high intensity statin, beta-darinel. - We will request Right and Left Heart Catheterization. - The natural history of atherosclerosis was discussed with the patient. The treatment options including GDMT, percutaneous intervention or surgical intervention were discussed with the patient. All the risks, benefits and alternative procedures were discussed. Complications of the procedure were also discussed, including but not limited to risk of bleeding, stroke, infarct, infection, urgent cardiac surgery or . All questions were answered and the informed consent was obtained. After aforementioned testing and consultation, Left Heart Catheterization with potential Percutaneous Coronary Intervention would be a reasonable approach if the patient is candidate. - Please keep NPO. - Would suggest to keep ASA, high intensity statin, beta-darinel. # Heart Failure with reduced LV systolic function (LVEF 30-35%) / S/P ICD - Echo (10/04/2022): 1. Left ventricular systolic function is moderately decreased with a 30-35% estimated ejection fraction. 2. There is global hypokinesis of the left ventricle with minor regional variations. 3. There is a trivial pericardial effusion 4. There is no evidence of cardiac tamponade. 5. RVSP within normal limits. - Patient continues to be volume overloaded based on her clinical presentation. We suggest to keep diuresing. - Keep daily weights. Patient's admission weight is lb. - Low sodium diet (2g). - 1500mL fluid restriction. - Strict I&Os. - Electrolyte control and daily BMP including magnesium. - General recommendations for heart failure, including low-sodium diet, fluid restriction, daily weight and adherence to medication. - Keep GDMT with hydralazine 25mg q8h, Metoprolol succinate 50mg daily. - Keep Furosemide PO. - Patient not on additional diuretics due to CKD - Discuss starting empaglifozin with Nephrology team. - Follow up with Cardiology team as outpatient - Dr. Antoine. # CKD stage IV - Crea 2.2 - Follow up with Nephrology. # Hypertension - Controlled blood pressure. - Keep current medications. - Patient counseled to keep a healthy lifestyle including regular exercise and low-sodium diet. - Recommended home blood pressure monitoring. - Goal of BP < 130/80mmHg. # Diabetes - Counseled on healthy diet and regular exercises. - Discussed need for weight loss and the benefits. - Keep current medications. - ISS. # Hyperlipidemia - Controlled by PCP. - Keep home medication with Simvastatin 40mg daily. - Counseled on healthy diet and regular exercise. Thank you for allowing me to participate in the care of this patient. Please reach me out if you have any questions or if you need any clarifications regarding the patient's care. Peripheral IV 09/09/23 20 G Right Forearm (Active) Site Assessment Clean;Dry;Intact 09/09/23 0505 Number of days: 0 Code Status: DNR and No Intubation Cesar Lucio MD Cardiology documented in this encounter [facility] Work Phone: 09-09-2023 History and physical note History Of Present 78-year-old female with past medical history of CHF, DM 2 with CKD 4, hypertension, neuropathy, depression, and hypertension who presents to the ED with chief complaint of chest pain. Serial troponins were slightly elevated but at patient's baseline. EKG showed no acute findings. Chest x-ray revealed history of cardiomegaly but no acute cardiopulmonary process. Aspirin 324 mg were provided in the ED. Patient was chest pain and shortness of breath free. She was admitted for further evaluation and treatment of her chest pain. Patient reports she was awakened from her sleep due to sharp stabbing left chest pain. There were no associated symptoms with this. She had no acute illnesses and at her baseline status prior to this episode. She called her neighbor who came and spoke with her and decided she should call EMS and get transported to the hospital. Currently she is awake oriented in no acute distress. No chest pain, dizziness, palpitations, or dizziness. No leg swelling no abdominal pain, no other complaints. Past Medical History Past Medical History: Diagnosis Date CHF (congestive heart failure) (Multi) COPD (chronic obstructive pulmonary disease) (Multi) Diabetes mellitus (Multi) Hypertension Surgical History Past Surgical History: Procedure Laterality Date CARDIAC DEFIBRILLATOR PLACEMENT Social History She reports that she has never smoked. She has been exposed to tobacco smoke. She has never used smokeless tobacco. She reports that she does not drink alcohol and does not use drugs. Family History Family History Problem Relation Name Age of Onset Cancer Mother Stroke Father Coronary artery disease Sister Stroke Brother Diabetes Son Cancer Son Allergies Levofloxacin and Sulfacetamide sodium Review of Systems Constitutional: Negative. HENT: Negative. Eyes: Negative. Respiratory: Negative. Cardiovascular: Negative. Gastrointestinal: Negative. Endocrine: Negative. Genitourinary: Negative. Musculoskeletal: Positive for arthralgias. Allergic/Immunologic: Negative. Neurological: Negative. Hematological: Negative. Psychiatric/Behavioral: Negative. Physical Exam Constitutional: General: She is not in acute distress. Appearance: She is well-developed, obese HENT: Head: Normocephalic and atraumatic. Eyes: Conjunctiva/sclera: Conjunctivae normal. Cardiovascular: Rate and Rhythm: Normal rate and regular rhythm. Heart sounds: No murmur heard. Left chest with pacemaker/defibrillator and port Pulmonary: Effort: Pulmonary effort is normal. No respiratory distress. Breath sounds: Normal breath sounds. Abdominal: Palpations: Abdomen is soft. Tenderness: There is no abdominal tenderness. Musculoskeletal: General: No swelling. Cervical back: Neck supple. Skin: General: Skin is warm and dry. Capillary Refill: Capillary refill takes less than 2 seconds. Neurological: Mental Status: She is alert. Psychiatric: Mood and Affect: Mood normal. Last Recorded Vitals Blood pressure 118/64, pulse 97, temperature 35.9 C (96.6 F), resp. rate 20, height 1.6 m (5' 3), weight 121 kg (266 lb 9.6 oz), SpO2 99%. Relevant Results Results for orders placed or performed during the hospital encounter of 09/09/23 (from the past 24 hour(s)) ECG 12 lead Result Value Ref Range Ventricular Rate 95 BPM Atrial Rate 95 BPM MT Interval 218 ms QRS Duration 132 ms QT Interval 390 ms QTC Calculation(Bazett) 490 ms P [place] 63 degrees R [place] -38 degrees T [place] 145 degrees QRS Count 16 beats Q Onset 205 ms P Onset 96 ms P Offset 160 ms T Offset 400 ms QTC Fredericia 454 ms CBC and Auto Differential Result Value Ref Range WBC 8.9 4.4 - 11.3 x10*3/uL nRBC 0.0 0.0 - 0.0 /100 WBCs RBC 3.13 (L) 4.00 - 5.20 x10*6/uL Hemoglobin 9.8 (L) 12.0 - 16.0 g/dL Hematocrit 31.2 (L) 36.0 - 46.0 % MCV 100 80 - 100 fL MCH 31.3 26.0 - 34.0 pg MCHC 31.4 (L) 32.0 - 36.0 g/dL RDW 14.0 11.5 - 14.5 % Platelets 196 150 - 450 x10*3/uL Neutrophils % 73.1 40.0 - 80.0 % Immature Granulocytes %, Automated 0.3 0.0 - 0.9 % Lymphocytes % 14.8 13.0 - 44.0 % Monocytes % 7.5 2.0 - 10.0 % Eosinophils % 3.7 0.0 - 6.0 % Basophils % 0.6 0.0 - 2.0 % Neutrophils Absolute 6.50 (H) 1.60 - 5.50 x10*3/uL Immature Granulocytes Absolute, Automated 0.03 0.00 - 0.50 x10*3/uL Lymphocytes Absolute 1.32 0.80 - 3.00 x10*3/uL Monocytes Absolute 0.67 0.05 - 0.80 x10*3/uL Eosinophils Absolute 0.33 0.00 - 0.40 x10*3/uL Basophils Absolute 0.05 0.00 - 0.10 x10*3/uL Basic metabolic panel Result Value Ref Range Glucose 98 74 - 99 mg/dL Sodium 138 136 - 145 mmol/L Potassium 4.2 3.5 - 5.3 mmol/L Chloride 101 98 - 107 mmol/L Bicarbonate 28 21 - 32 mmol/L Anion Gap 13 10 - 20 mmol/L Urea Nitrogen 43 (H) 6 - 23 mg/dL Creatinine 2.21 (H) 0.50 - 1.05 mg/dL eGFR 22 (L) >60 mL/min/1.73m*2 Calcium 9.5 8.6 - 10.3 mg/dL Troponin I, High Sensitivity, Initial Result Value Ref Range Troponin I, High Sensitivity 20 (H) 0 - 13 ng/L ECG 12 lead Result Value Ref Range Ventricular Rate 88 BPM Atrial Rate 88 BPM MT Interval 244 ms QRS Duration 130 ms QT Interval 400 ms QTC Calculation(Bazett) 484 ms P [place] 60 degrees R [place] -50 degrees T [place] 197 degrees QRS Count 14 beats Q Onset 216 ms P Onset 94 ms P Offset 164 ms T Offset 416 ms QTC Fredericia 454 ms Troponin, High Sensitivity, 1 Hour Result Value Ref Range Troponin I, High Sensitivity 21 (H) 0 - 13 ng/L 78-year-old female with past medical history of CHF, DM 2 with CKD 4, hypertension, neuropathy, depression, and hypertension who presents to the ED with chief complaint of chest pain. Serial troponins were slightly elevated but at patient's baseline. EKG showed no acute findings. Chest x-ray revealed history of cardiomegaly but no acute cardiopulmonary process. Aspirin 324 mg were provided in the ED. Patient was chest pain and shortness of breath free. She was admitted for further evaluation and treatment of her chest pain. Assessment/Plan Principal Problem: Chest pain Active Problems: Chest pain, unspecified type -Consult cardiology -Telemetry -Loading dose aspirin given in ED -Serial troponins at baseline -Chest x-ray negative for acute findings -EKG without acute changes History of CHF -Echo from 10/04/2022 reveal EF 30 to 35% -Status post AICD -No signs symptoms of fluid overload -Lasix 20 mg daily, Toprol 50 mg daily, simvastatin 40 mg daily DM2 with CKD 4 with neuropathy -Last A1c 8.3 -Carb controlled diet -Check blood sugars ACHS sliding scale insulin -On gabapentin for neuropathic pain -GFR baseline appears to be low 20s creatinine about 2.05-2.38 -Repeat BMP in a.m. -Patient follows with nephrology in the community Unsteady gait -Uses walkers and canes at home -Consult PT OT COPD -Continue inhalers -Keep SpO2 greater than 90% -Uses 2 to 4 L of oxygen at at bedtime -Patient follows with pulmonology in the community DVT prophylaxis Lovenox and SCDs Disposition 24 to 48 hours when medically stable [facility] Work Phone: 09-09-2023 Nurse Note Pt admitted to bed 319 from ED. Pt ambulated to bathroom with one assist. Pt is a little wobbly. [facility] Work Phone: 09-09-2023 Emergency department Note 78-year-old female presents with chief complaint of sharp stabbing chest pain starting approximately 30 minutes before she called the squad. She was given 324 mg aspirin. Her pain has significantly improved. No radiating symptoms to the extremity neck or jaw. No shortness of breath. Review of Systems Physical Exam Vitals and nursing note reviewed. Constitutional: General: She is not in acute distress. Appearance: She is well-developed. HENT: Head: Normocephalic and atraumatic. Eyes: Conjunctiva/sclera: Conjunctivae normal. Cardiovascular: Rate and Rhythm: Normal rate and regular rhythm. Heart sounds: No murmur heard. Pulmonary: Effort: Pulmonary effort is normal. No respiratory distress. Breath sounds: Normal breath sounds. Abdominal: Palpations: Abdomen is soft. Tenderness: There is no abdominal tenderness. Musculoskeletal: General: No swelling. Cervical back: Neck supple. Skin: General: Skin is warm and dry. Capillary Refill: Capillary refill takes less than 2 seconds. Neurological: Mental Status: She is alert. Psychiatric: Mood and Affect: Mood normal. Labs Reviewed CBC WITH AUTO DIFFERENTIAL - Abnormal Result Value WBC 8.9 nRBC 0.0 RBC 3.13 (*) Hemoglobin 9.8 (*) Hematocrit 31.2 (*) MCV 100 MCH 31.3 MCHC 31.4 (*) RDW 14.0 Platelets 196 Neutrophils % 73.1 Immature Granulocytes %, Automated 0.3 Lymphocytes % 14.8 Monocytes % 7.5 Eosinophils % 3.7 Basophils % 0.6 Neutrophils Absolute 6.50 (*) Immature Granulocytes Absolute, Automated 0.03 Lymphocytes Absolute 1.32 Monocytes Absolute 0.67 Eosinophils Absolute 0.33 Basophils Absolute 0.05 BASIC METABOLIC PANEL - Abnormal Glucose 98 Sodium 138 Potassium 4.2 Chloride 101 Bicarbonate 28 Anion Gap 13 Urea Nitrogen 43 (*) Creatinine 2.21 (*) eGFR 22 (*) Calcium 9.5 SERIAL TROPONIN-INITIAL - Abnormal Troponin I, High Sensitivity 20 (*) Narrative: Less than 99th percentile of normal range cutoff- Female and children under 18 years old <14 ng/L; Male <21 ng/L: Negative Repeat testing should be performed if clinically indicated. Female and children under 18 years old 14-50 ng/L; Male 21-50 ng/L: Consistent with possible cardiac damage and possible increased clinical risk. Serial measurements may help to assess extent of myocardial damage. >50 ng/L: Consistent with cardiac damage, increased clinical risk and myocardial infarction. Serial measurements may help assess extent of myocardial damage. NOTE: Children less than 1 year old may have higher baseline troponin levels and results should be interpreted in conjunction with the overall clinical context. NOTE: Troponin I testing is performed using a different testing methodology at [facility] than at other [facility] [facility]. Direct result comparisons should only be made within the same method. SERIAL TROPONIN, 1 HOUR - Abnormal Troponin I, High Sensitivity 21 (*) Narrative: Less than 99th percentile of normal range cutoff- Female and children under 18 years old <14 ng/L; Male <21 ng/L: Negative Repeat testing should be performed if clinically indicated. Female and children under 18 years old 14-50 ng/L; Male 21-50 ng/L: Consistent with possible cardiac damage and possible increased clinical risk. Serial measurements may help to assess extent of myocardial damage. >50 ng/L: Consistent with cardiac damage, increased clinical risk and myocardial infarction. Serial measurements may help assess extent of myocardial damage. NOTE: Children less than 1 year old may have higher baseline troponin levels and results should be interpreted in conjunction with the overall clinical context. NOTE: Troponin I testing is performed using a different testing methodology at [facility] than at other [place] [facility]. Direct result comparisons should only be made within the same method. TROPONIN SERIES- (INITIAL, 1 HR) Narrative: The following orders were created for panel order Troponin I Series, High Sensitivity (0, 1 HR). Procedure Abnormality Status --------- ------ Troponin I, High Sensiti...[[id number]] Abnormal Final result Troponin, High Sensitivi...[[id number]] Abnormal Final result Please view results for these tests on the individual orders. XR chest 1 view Final Result 1. No evidence of acute cardiopulmonary process. Stable cardiomegaly. Signed by: Latrell Bal 09/09/2023 5:54 AM Dictation workstation: [id number] Procedures Medical Decision Making 78-year-old female presents with chief complaint of sharp stabbing chest pain starting approximately 30 minutes before she called the squad. She was given 324 mg aspirin. Her pain has significantly improved. No radiating symptoms to the extremity neck or jaw. No shortness of breath. Patient's EKG was unremarkable for changes. Initial and repeat troponin are slightly elevated but at her baseline and unchanged. Patient did have a return of chest pain during ambulation between her room and the bathroom here in the emergency department. Repeat EKG was similar to previous. Will admit to the hospitalist service. DDx: STEMI, ACS, dyspnea, pneumonia Amount and/or Complexity of Data Reviewed ECG/medicine tests: independent interpretation performed. Details: Sinus rhythm rate of 95, left bundle branch block, no ST elevation or depression, no ectopy Repeat EKG demonstrates sinus rhythm rate of 88, left bundle branch block, no ST elevation or depression, no ectopy. Diagnoses as of 09/09/23714 Chest pain, unspecified type Tony Menendez MD 09/09/23714 documented in this encounter [facility] Work Phone: 09-09-2023 Physician Emergency department Note 78-year-old female presents with chief complaint of sharp stabbing chest pain starting approximately 30 minutes before she called the squad. She was given 324 mg aspirin. Her pain has significantly improved. No radiating symptoms to the extremity neck or jaw. No shortness of breath. Review of Systems Physical Exam Vitals and nursing note reviewed. Constitutional: General: She is not in acute distress. Appearance: She is well-developed. HENT: Head: Normocephalic and atraumatic. Eyes: Conjunctiva/sclera: Conjunctivae normal. Cardiovascular: Rate and Rhythm: Normal rate and regular rhythm. Heart sounds: No murmur heard. Pulmonary: Effort: Pulmonary effort is normal. No respiratory distress. Breath sounds: Normal breath sounds. Abdominal: Palpations: Abdomen is soft. Tenderness: There is no abdominal tenderness. Musculoskeletal: General: No swelling. Cervical back: Neck supple. Skin: General: Skin is warm and dry. Capillary Refill: Capillary refill takes less than 2 seconds. Neurological: Mental Status: She is alert. Psychiatric: Mood and Affect: Mood normal. Labs Reviewed CBC WITH AUTO DIFFERENTIAL - Abnormal Result Value WBC 8.9 nRBC 0.0 RBC 3.13 (*) Hemoglobin 9.8 (*) Hematocrit 31.2 (*) MCV 100 MCH 31.3 MCHC 31.4 (*) RDW 14.0 Platelets 196 Neutrophils % 73.1 Immature Granulocytes %, Automated 0.3 Lymphocytes % 14.8 Monocytes % 7.5 Eosinophils % 3.7 Basophils % 0.6 Neutrophils Absolute 6.50 (*) Immature Granulocytes Absolute, Automated 0.03 Lymphocytes Absolute 1.32 Monocytes Absolute 0.67 Eosinophils Absolute 0.33 Basophils Absolute 0.05 BASIC METABOLIC PANEL - Abnormal Glucose 98 Sodium 138 Potassium 4.2 Chloride 101 Bicarbonate 28 Anion Gap 13 Urea Nitrogen 43 (*) Creatinine 2.21 (*) eGFR 22 (*) Calcium 9.5 SERIAL TROPONIN-INITIAL - Abnormal Troponin I, High Sensitivity 20 (*) Narrative: Less than 99th percentile of normal range cutoff- Female and children under 18 years old <14 ng/L; Male <21 ng/L: Negative Repeat testing should be performed if clinically indicated. Female and children under 18 years old 14-50 ng/L; Male 21-50 ng/L: Consistent with possible cardiac damage and possible increased clinical risk. Serial measurements may help to assess extent of myocardial damage. >50 ng/L: Consistent with cardiac damage, increased clinical risk and myocardial infarction. Serial measurements may help assess extent of myocardial damage. NOTE: Children less than 1 year old may have higher baseline troponin levels and results should be interpreted in conjunction with the overall clinical context. NOTE: Troponin I testing is performed using a different testing methodology at [facility] than at other [place] [facility]. Direct result comparisons should only be made within the same method. SERIAL TROPONIN, 1 HOUR - Abnormal Troponin I, High Sensitivity 21 (*) Narrative: Less than 99th percentile of normal range cutoff- Female and children under 18 years old <14 ng/L; Male <21 ng/L: Negative Repeat testing should be performed if clinically indicated. Female and children under 18 years old 14-50 ng/L; Male 21-50 ng/L: Consistent with possible cardiac damage and possible increased clinical risk. Serial measurements may help to assess extent of myocardial damage. >50 ng/L: Consistent with cardiac damage, increased clinical risk and myocardial infarction. Serial measurements may help assess extent of myocardial damage. NOTE: Children less than 1 year old may have higher baseline troponin levels and results should be interpreted in conjunction with the overall clinical context. NOTE: Troponin I testing is performed using a different testing methodology at [facility] than at other [place] [facility]. Direct result comparisons should only be made within the same method. TROPONIN SERIES- (INITIAL, 1 HR) Narrative: The following orders were created for panel order Troponin I Series, High Sensitivity (0, 1 HR). Procedure Abnormality Status --------- ------ Troponin I, High Sensiti...[[id number]] Abnormal Final result Troponin, High Sensitivi...[[id number]] Abnormal Final result Please view results for these tests on the individual orders. XR chest 1 view Final Result 1. No evidence of acute cardiopulmonary process. Stable cardiomegaly. Signed by: Latrell Bal 09/09/2023 5:54 AM Dictation workstation: [id number] Procedures Medical Decision Making 78-year-old female presents with chief complaint of sharp stabbing chest pain starting approximately 30 minutes before she called the squad. She was given 324 mg aspirin. Her pain has significantly improved. No radiating symptoms to the extremity neck or jaw. No shortness of breath. Patient's EKG was unremarkable for changes. Initial and repeat troponin are slightly elevated but at her baseline and unchanged. Patient did have a return of chest pain during ambulation between her room and the bathroom here in the emergency department. Repeat EKG was similar to previous. Will admit to the hospitalist service. DDx: STEMI, ACS, dyspnea, pneumonia Amount and/or Complexity of Data Reviewed ECG/medicine tests: independent interpretation performed. Details: Sinus rhythm rate of 95, left bundle branch block, no ST elevation or depression, no ectopy Repeat EKG demonstrates sinus rhythm rate of 88, left bundle branch block, no ST elevation or depression, no ectopy. Diagnoses as of 09/09/23 0715 Chest pain, unspecified type Tony Menendez MD 09/09/23 0715 [facility] Work Phone: 09-04-2023 History of Present illness Narrative Images from the original note were not included. Primary Care Pharmacy Visit CC (Reason for Consult): (E11.22, N18.4, Z79.4) Type 2 diabetes mellitus with stage 4 chronic kidney disease, with long-term current use of insulin (HCC) (primary encounter diagnosis) Goal(s): A1c <7% Last Collaborating Provider Visit: 05/01/[address] Turpin Val Erickson is a 78 year old female presenting for follow up visit telephone call. Patient consents to pharmacy collaborative practice agreement. Last Pharmacy Visit: 07/31/23 - decreased Lantus to 55 units once daily HPI: Feels blood sugars have been doing pretty good and have come down. Higher BG last week due to holiday and time with family, but have come back down again this week. Feels tired a lot lately and often falls asleep in her chair. About a week and a half ago at 5-6am, she checked her BG at 95. Then dozed off, and woke up with her head all sweaty. Rechecked BG 80. She took 2 glucose tablets and was able to make it to the bathroom. She felt shaky and sweaty again and took 2 more glucose tablets and fell asleep. She woke up feeling better. Takes some glucose tablets when her BG about 80-85 in the early mornings but this does not happen very often. She thinks this happens when she doesn't eat enough at night. Has tried to eat more protein at night with dinner around 6-7pm and has noticed fewer lows. Getting her shot for kidney disease next week at the hospital where she will also complete bloodwork before September PCP visit. Hasn't had to get the shot for a while now. She is concerned that her blood count has come down. Reports 9.2 last month and 2 months ago. Does not want to have to get blood transfusions or dialysis. Current DM Medications: Insulin glargine (Lantus) 55 units daily at bedtime Previously Trialed DM Meds: Glimepiride - nocturnal hypoglycemia Metformin - reduced renal fxn Pioglitazone - swelling Trulicity - tolerated well; unable to procure d/t backorder - switched to Mounjaro Mounjaro - tolerated well; procurement issues (switched to Rybelsus) Rybelsus- intolerable indigestion Diet Pretty much the same, trying to eat more protein at night with meals to prevent low blood sugars in the morning GLYCEMIC CONTROL: Glucometer present at visit: No Hypoglycemia: Yes SMBGs FPG 110-130 first few weeks after last visit, up a little last week due to holiday and eating sweets, come back down the last few days (110, 117, 121) Past medical history reviewed. ALLERGIES Allergen Reactions Rybelsus [Semagluti* Intolerance Uncontrollable indigestion Levaquin [Levofloxa* itching,diarrhea,dausea,burning skin Seasonal Allergies Other: See Comments Sinus Sulfa (Sulfonamide * rash and hives Current Outpatient Medications Medication Sig Dispense Refill insulin glargine (LANTUS SOLOSTAR U-100 INSULIN) 100 unit/mL (3 mL) Inject 55 Units subcutaneously daily at bedtime. furosemide (LASIX) 20 mg tablet Take 1 tablet by mouth once daily. Take an extra 20 mg tablet daily as needed 120 tablet 1 calcitriol (ROCALTROL) 0.5 mcg capsule Take 0.5 mcg by mouth. clotrimazole (LOTRIMIN) 1 % cream Apply to affected area. lidocaine (SALONPAS) 4 % patch Apply 1 Patch as directed. senna-docusate (SENNA-S) 8.6-50 mg per tablet Take by mouth. simvastatin (ZOCOR) 40 mg tablet Take 1 tablet by mouth daily at bedtime. For cholesterol. 90 tablet 3 venlafaxine ER (EFFEXOR XR) 37.5 mg 24 hr capsule Take 1 capsule by mouth once daily. 90 capsule 1 hydrALAZINE (APRESOLINE) 25 mg tablet Take 25 mg by mouth three times a day. gabapentin (NEURONTIN) 300 mg capsule Take 1 capsule by mouth two times a day for 180 days. 180 capsule 1 metoprolol succinate ER (TOPROL XL) 50 mg 24 hr tablet Take 1 tablet by mouth once daily. Per Dr. Yulia Antoine, cardiology. Insulin [place], Disposable, 29 gauge x 1/2 Use once daily as directed. Dx E11.29 100 Each 4 dejpzacdhfd-tyhwyoswg-lrttyjoc (TRELEGY ELLIPTA) 100-62.5-25 mcg inhalation powder Inhale 1 Puff as instructed once daily. docusate sodium (COLACE) 100 mg capsule Take 1 capsule by mouth as needed. melatonin 5 mg tablet Take 2 tablets by mouth. senna (SENOKOT) 8.6 mg tab Take 1 tablet by mouth as needed. Vit C-Vit F-Euxutx-KuGd-Lutein (PRESERVISION LUTEIN) 226 mg-200 unit -5 mg-0.8 [...] medications for this visit. Pill bottles are present. Adherence: denies missed doses. Rx coverage: [...] 05/19/2018 HBA1C 6.4 02/18/2012 HBA1C 7.8 09/21/2011 External Labs: 08/16/2023 Lab Results Component Value Date CHOL 121 05/19/2018 LDL 50 05/19/2018 HDL 44 05/19/2018 TG 135 05/19/2018 Albumin/Creat Ratio (mg/g) Date Value 09/21/2011 77 (H) eGFR-All Other Races (.) Date Value 05/19/2018 30 ASSESSMENT/PLAN: 1. Type 2 diabetes mellitus with stage 4 chronic kidney disease, with long-term current use of insulin (HCC) - ICD9: 250.40, 585.4, V58.67, ICD10: E11.22, N18.4, Z79.4 - Control undetermined, due for labs. Would benefit in decrease in basal insulin due to symptomatic episodes of hypoglycemia. - DECREASE insulin glargine (Lantus) to 48 units once daily - Statin prescribed - simvastatin - Counseled on healthy diet and regular exercise - Follow up in 2 months, sooner should any other issues arise. - Due for A1c/ lipid panel, and albumin/creat ratio (already ordered) Follow Up: Next PCP visit: 09/23/23 Next PharmD visit: 10/30/23 Carol Gu BA PharmD Candidate 2024 I spent a total of 30 minutes on the date of the service which included preparing to see the patient, completing clinical documentation, and counseling and educating the patient/family/caregiver. Patient reviewed and examined with the pharmacy tech who interviewed the patient alone. Arnold elements of history confirmed during office visit. The progress note reflects my input and comments. My additions to the progress note are underlined. Tessa Brock PharmD, [facility] Primary [facility] Clinical Wine And Spirits Clerk documented in this encounter [facility] 09-04-2023 History of Present illness Narrative CD Care Path Telephonic Outreach Provider Action/FYI I am having some pretty good sugars, for awhile I was 105, 125, 85, sometimes high like 158. I did have a low one at 85, that makes me tired. Positive reinforcement given. No questions, concerns, needs at this time. Contact made with patient: Yes Patient identified by Name and Date of . Discussed care with patient. Contacted for Chronic Disease Care Path: Diabetes Health maintenance addressed this outreach: Lipid Panel Yearly Primary Care Provider every six (6) months Education provided this outreach: Blood Sugar Monitoring: Importance of Signs and Symptoms of low blood sugar / how to manage low blood sugar GOALS Disease specific goals updated: No Patient [...] feeling? No Care Gaps Addressed this Outreach: Yes Medication Prescribing/Appointment Targets Heart failure Candidate for SGLT2i. Consider empagliflozin, dapagliflozin No visit scheduled with PCP in the next 6 months No visit scheduled with cardiology in the next 6 months Diabetes Patient is eligible for ACEi/ARB for: - Diabetes + HTN - Diabetes + CKD Patient is eligible for SGLT2i. Consider empagliflozin, dapagliflozin Patient is due for: - Lipids - BMP - Urine ACR Please consider referral to pharmacy for additional management Please arrange follow up appointment for diabetes in 3 months CKD Patient is eligible for ACEi/ARB/ARNI Patient is eligible for SGLT2i. Consider empagliflozin, dapagliflozin No visit scheduled with nephrology in the next 6 months Symptoms Are you experiencing any new or worsening symptoms you need to talk about today? No Based on threat monitoring analyst, the following disposition is advised: Other Call Dispositions No action needed Program Disposition Patient dispositioned from Program today: No Tara Estrella RN September 04, 2023 12:54 PM documented in this encounter [facility] 08-27-2023 History of Present illness Narrative [facility] Telephonic Outreach Provider Action/FYI Contact made with patient: No, Left message Annalisa Stephen RN August 27, 2023 1:53 PM documented in this encounter [facility] 08-27-2023 History of Present illness Narrative [facility] Telephonic Outreach Provider Action/FYI Contact made with patient: No, Left message Annalisa Stephen RN August 27, 2023 1:48 PM documented in this encounter [facility] 08-13-2023 History of Present illness Narrative [facility] Telephonic Outreach Provider Action/FYI I was able to get my shoes on this morning so the swelling has gone down. Yesterday my weight was 255-256#. Positive reinforcement given to pt. I am doing well. I do not need anything Contact made with patient: Yes Patient identified by Name and Date of . Discussed care with patient. Contacted for Chronic Disease Care Path: Congestive Heart Failure Health maintenance addressed this outreach: Primary Care Provider visit every six (6) months Education provided this outreach: Your Guide to Managing Heart Failure: Topics -- Keeping Track of Weight, Activity Guidelines / Exercise, and Diet Modifications GOALS Disease specific goals updated: No Patient [...] to talk about today? No Based on threat monitoring analyst, the following disposition is advised: Other Call Dispositions No action needed Program Disposition Patient dispositioned from Program today: No Annalisa Stephen RN August 13, 2023 1:06 PM documented in this encounter [facility] 07-31-2023 History of Present illness Narrative Primary Care Pharmacy Visit CC (Reason for Consult): (E11.22, N18.4, Z79.4) Type 2 diabetes mellitus with stage 4 chronic kidney disease, with long-term current use of insulin ([facility]) (primary encounter diagnosis) Goal: A1c < 7% Last Collaborating Physician Visit: 05/01/[address] Papi Erickson is a 78 year old female presenting for follow up visit telephone call. Patient consents to pharmacy collaborative practice agreement. Last Pharmacy Visit: 07/03/23 Rybelsus was stopped due to indigestion HPI: - Reports things have been good since last appointment. Reports when she does activities she needs to sit down and use oxygen (counseled to notify lung doctor) - Reports around 4am to 6am blood sugars would drop to low 80's-90's while on 62 units Lantus and would take a couple glucose tablets - Still has occasional episodes of indigestion improves when she sits up right and takes Tums Current DM Medications: Insulin glargine 62 units once daily- decreased herself to 55 units daily due to low blood sugars Previously Trialed DM Meds: Glimepiride - nocturnal hypoglycemia Metformin - reduced renal fxn Pioglitazone - swelling Trulicity - tolerated well; unable to procure d/t backorder - switched to Mounjaro Mounjaro - tolerated well; procurement issues (switched to Rybelsus) Rybelsus- intolerable indigestion Past medical, family and social history reviewed and updated. DIET/EXERCISE/SOCIAL Hx: Reports no changes in diet since last appointment Meals/day: 2 meals per day Lunch: 12pm rice, broccoli, chicken casserole, milk, fruit Dinner: meat and fruit, salad Exercise: no formal exercise, will do some kicking and movements in chair ACTIVE PROBLEM LIST Essential Hypertension Generalized Osteoarthritis [...] Chronic Systolic Congestive Heart Failure (Hcc) Hypoxemia PAST MEDICAL HISTORY Diagnosis Date Acute bronchitis [...] stated as uncontrolled (HCC) Unspecified essential hypertension ALLERGIES Allergen Reactions Rybelsus [Semagluti* Intolerance Uncontrollable indigestion Levaquin [Levofloxa* itching,diarrhea,dausea,burning skin Seasonal Allergies Other: See Comments Sinus Sulfa (Sulfonamide * rash and hives MEDICATIONS: Adherence: denies missed doses. Pharmacy: [facility] Rx coverage: Medicare, MEDICARE A AND B Affordability: Yes Current Outpatient Medications Medication Sig Dispense Refill furosemide (LASIX) 20 mg tablet Take 1 tablet by mouth once daily. Take an extra 20 mg tablet daily as needed 120 tablet 1 insulin glargine (LANTUS SOLOSTAR U-100 INSULIN) 100 unit/mL (3 mL) Inject 62 Units subcutaneously daily at bedtime. calcitriol (ROCALTROL) 0.5 mcg capsule Take 0.5 mcg by mouth. clotrimazole (LOTRIMIN) 1 % cream Apply to affected area. lidocaine (SALONPAS) 4 % patch Apply 1 Patch as directed. senna-docusate (SENNA-S) 8.6-50 mg per tablet Take by mouth. simvastatin (ZOCOR) 40 mg tablet Take 1 tablet by mouth daily at bedtime. For cholesterol. 90 tablet 3 venlafaxine ER (EFFEXOR XR) 37.5 mg 24 hr capsule Take 1 capsule by mouth once daily. 90 capsule 1 hydrALAZINE (APRESOLINE) 25 mg tablet Take 25 mg by mouth three times a day. gabapentin (NEURONTIN) 300 mg capsule Take 1 capsule by mouth two times a day for 180 days. 180 capsule 1 metoprolol succinate ER (TOPROL XL) 50 mg 24 hr tablet Take 1 tablet by mouth once daily. Per Dr. Yulia Antoine, cardiology. Insulin [place], Disposable, 29 gauge x 1/2 Use once daily as directed. Dx E11.29 100 Each 4 knklwhqltkk-ghvkpkavq-hpmdsawd (TRELEGY ELLIPTA) 100-62.5-25 mcg inhalation powder Inhale 1 Puff as instructed once daily. docusate sodium (COLACE) 100 mg capsule Take 1 capsule by mouth as needed. melatonin 5 mg tablet Take 2 tablets by mouth. senna (SENOKOT) 8.6 mg tab Take 1 tablet by mouth as needed. Vit C-Vit L-Ceokqj-GjSn-Lutein (PRESERVISION LUTEIN) 226 mg-200 unit -5 mg-0.8 [...] No current facility-administered medications for this visit. GLYCEMIC CONTROL: Glucometer present at visit: No SMBG s: Fasting Lowest: 87mg/dL Averages: 111-117mg/dL Highest: 171mg/dL Hypoglycemia: Reports numerous episodes in the morning of low blood sugars while on 62 units Lantus (sweats) 80s to 90s, denies episodes of <70mg/dL. One episode (93mg/dL) since decreasing insulin glargine to 55 units once daily. VITALS: There were no vitals taken for this visit. Wt: 119.7 kg (264 lb) BMI: 45.32 kg/(m^2) Last 3 Encounter BP Readings: Date: BP: 05/01/2023 118/68 01/04/2023 106/66 08/15/2022 116/74 Labs reviewed Lab Results Component Value Date HBA1C 8.3 05/01/2023 HBA1C 12.4 01/04/2023 HBA1C 11.6 08/15/2022 HBA1C 7.6 08/09/2021 HBA1C 6.5 05/19/2018 HBA1C 6.4 02/18/2012 HBA1C 7.8 09/21/2011 CMP: Glucose 171 03/22/2021 BUN 33 05/19/2018 Creatinine 2.02 03/22/2021 Sodium 140 03/22/2021 Potassium 4.4 03/22/2021 Calcium 10 03/22/2021 Lab Results Component Value Date CHOL 121 05/19/2018 LDL 50 05/19/2018 HDL 44 05/19/2018 TG 135 05/19/2018 Albumin/Creat Ratio (mg/g) Date Value 09/21/2011 77 (H) PHARMACOTHERAPY PREVENTATIVE MEDS: On GEOVANNI/ARB: No On Statin: Yes On ASA: No ASSESSMENT/PLAN: 1. Type 2 diabetes mellitus with stage 4 chronic kidney disease, with long-term current use of insulin ([facility]) - ICD9: 250.40, 585.4, V58.67, ICD10: E11.22, N18.4, Z79.4 - Patient's self reported FBG similar to last appointment, which appear better than last reported A1c of 8.3% blood glucose average. However, patient reporting symptoms of hypoglycemia when BG 80's-90's while on 62 units of Lantus, denies episodes of blood sugars less than 70mg/dL. - Decrease Insulin glargine (Lantus) to 55 units once daily - Statin prescribed - simvastatin - Blood glucose monitoring on a once daily schedule, FBG - Discussed diabetic education issues of hypoglycemic/hyperglycemic symptoms - Educated on hypoglycemia treatment - Educated to contact Janessa Zarate if starts experiencing episodes of hypoglycemia - Follow up in 5 weeks, sooner should any other issues arise. - Next A1c due 07/29, ordered for 08/29 by PCP to get with other lab work Follow-up: PCP appt: 09/23/23 with Kacy Mary APRN PharmD appt: 09/04/23 at 2:30pm Patient verbalized understanding of instructions. Chela Dooley RPh Patient reviewed with the registered pharmacy technician who interviewed the patient alone. Arnold elements of history confirmed during appointment/call. The progress note, assessment, and plan reflect my input and comments. My additions to the progress note are underlined. Tessa Brock PharmD Primary Care Clinical Wine And Spirits Clerk documented in this encounter [facility] 07-29-2023 History of Present illness Narrative [facility] Care Path Telephonic Outreach Provider Action/FYI Return call to pt (Message received via Teams from JAMES Figueredo) Usually in the summer time I have to take the water pill, but the weather hasn't been that bad. Nurse questioned if she thinks her diet is an issue or if she thinks she needs a medication adjusted. I think it is my food. My son brought me some singaporean food and the one day a deli sandwich. I think those has something to do with it. Today I will be having a salad, but I do think it was the food. Positive reinforcement given to pt for recognizing the need for diet change. Contact made with patient: Yes Patient identified by Name and Date of . Discussed care with patient. Contacted for Chronic Disease Care Path: Congestive Heart Failure Health maintenance addressed this outreach: Primary Care Provider visit every six (6) months Education provided this outreach: Your Guide to Managing Heart Failure: Topics -- Keeping Track of Weight and Diet Modifications GOALS Disease specific goals updated: No Patient [...] to talk about today? No Based on threat monitoring analyst, the following disposition is advised: Other Call Dispositions No action needed Program Disposition Patient dispositioned from Program today: No Annalisa Stephen RN July 29, 2023 10:47 AM documented in this encounter [facility] 07-25-2023 History of Present illness Narrative [facility] Care Path Telephonic Outreach Provider Action/FYI Contact made with patient: No, Left message Annalisa Stephen RN July 25, 2023 11:32 AM documented in this encounter [facility] 07-17-2023 Telephone encounter Note Form put into shredding. Jesenia Glasgow LPN [facility] 07-17-2023 Miscellaneous Notes Form put into shredding. Jeesnia Glasgow LPN patient does not use this company! Eneida Johnston LPN Received form from [employer], Physicians Order for Patient Testing Supplies. Left message does Patient use [employer]. Jesenia Glasgow LPN documented in this encounter [facility] 07-17-2023 Telephone encounter Note patient does not use this company! Eneida Johnston LPN [facility] Work Phone: 07-17-2023 Telephone encounter Note Received form from [employer], Physicians Order for Patient Testing Supplies. Left message does Patient use [employer]. Jesenia Glasgow LPN [facility] 07-16-2023 Telephone encounter Note Patient has been identified by name and date of : Yes, Patient phones for refill(s): Requested Prescriptions Pending Prescriptions Disp Refills furosemide (LASIX) 20 mg tablet 120 tablet 1 Sig: Take 1 tablet by mouth once daily. Take an extra 20 mg tablet daily as needed Date of last office visit in primary care: 05/01/2023 Date of next office visit in primary care: 08/30/2023 [facility]. Please advise. Thank you. Lou Rodriguez. [facility] 07-16-2023 Miscellaneous Notes Patient has been identified by name and date of : Yes, Patient phones for refill(s): Requested Prescriptions Pending Prescriptions Disp Refills furosemide (LASIX) 20 mg tablet 120 tablet 1 Sig: Take 1 tablet by mouth once daily. Take an extra 20 mg tablet daily as needed Date of last office visit in primary care: 05/01/2023 Date of next office visit in primary care: 08/30/2023 [facility]. Please advise. Thank you. Lou Rodriguez. documented in this encounter [facility] 07-12-2023 History of Present illness Narrative [facility] Path Telephonic Outreach Provider Action/FYI My breathing has calmed down some. I have been able to go without oxygen unless I am walking around, then I put it on. I stopped the extra water pill because my feet aren't swollen anymore. I forgot to weigh myself this morning. Pt encouraged to weigh herself tomorrow morning. Pt verbalized understanding. Contact made with patient: Yes Patient identified by Name and Date of . Discussed care with patient. Contacted for Chronic Disease Care Path: Congestive Heart Failure Health maintenance addressed this outreach: Primary Care Provider visit every six (6) months Education provided this outreach: Your Guide to Managing Heart Failure: Topics -- Keeping Track of Weight and Understanding Heart Failure GOALS Disease specific goals updated: No Patient [...] to talk about today? No Based on threat monitoring analyst, the following disposition is advised: Other Call Dispositions No action needed Program Disposition Patient dispositioned from Program today: No Annalisa Stephen RN July 12, 2023 3:14 PM [facility] Telephonic Outreach Provider Action/DAVIDI Pt reminded to utilize the [facility] at [facility] phone number and services available for questions/concerns/needs. Contact made with patient: No, Left message Annalisa Stephen RN July 12, 2023 12:50 PM documented in this encounter [facility] 07-10-2023 History of Present illness Narrative [facility] Path Telephonic Outreach Provider Kwame/NIKKY Those tablets gave me severe indigestion. My lantus is back at 62. I have been doing good. My sugar is been around 110. The highest is 130. I bottomed out yesterday around noon. I was 94. I can tell bc I start sweating. I carry the tablets with me in case I get low. My son is going to get me more tablets Saturday when we go to [place]. I did not weigh myself today. Last time I was 259# and then #262. I have a moist cough when I first wake up but it goes away. Pt denies current sob. Pt went to that bathroom while on phone with nurse 'sorry I just had diarrhea for some reason' pt was audibly SOB 'my ankles are swollen a little bit.' Offered virtualist service. Pt declined. I have permission from my doctor that if I need to take my water pill an extra 3 days that I can. I have been off my oxygen and have been fine Pt educated to wear her oxygen during this time to workload off her heart. Pt verbalized understanding. Pt given the number to [facility]. I will take the extra water pill for 3 days starting today. Pt educated on carrying glucose tablets with her in case she feels her BS is dropping. Pt educated on pending lab orders for her appointment with PCP in August. Educated that she needs to fast. Pt verbalized understanding. Contact made with patient: Yes Patient identified by Name and Date of . Discussed care with patient. Contacted for Chronic Disease Care Path: Diabetes Health maintenance addressed this outreach: HBA1C -- every six (6) months Primary Care Provider every six (6) months Medication Adherence Education provided this outreach: Signs and Symptoms of low blood sugar / how to manage low blood sugar Medication Compliance Understanding Medication GOALS Disease specific goals updated: No Patient [...] to talk about today? Yes Based on threat monitoring analyst, the following disposition is advised: Other Call Dispositions No action needed Program Disposition Patient dispositioned from Program today: No Annalisa Stephen RN July 10, 2023 12:40 PM documented in this encounter [facility] 07-03-2023 Miscellaneous Notes Patient called and rescheduled for same day at 3:30p Called patient for scheduled phone visit; unable to reach after multiple attempts. Left VM with phone number for rescheduling. Tessa Brock PharmD Primary Care Clinical Wine And Spirits Clerk documented in this encounter [facility] 07-03-2023 History of Present illness Narrative Primary Care Pharmacy Visit CC (Reason for Consult): (E11.22, N18.4, Z79.4) Type 2 diabetes mellitus with stage 4 chronic kidney disease, with long-term current use of insulin ([facility]) (primary encounter diagnosis) Goal(s): A1c <7% (per consult) Last Collaborating Provider Visit: 05/01/[address] Papi Erickson is a 78 year old female presenting for follow up visit telephone call. Patient consents to pharmacy collaborative practice agreement. Last Pharmacy Visit: 06/05/23 - Mounjaro increased to 7.5 mg weekly, insulin glargine decreased to 52 units daily Interim Events: -06/10/23 - patient called PharmD regarding issues getting Mounjaro; d/t frustration with continued supply issues patient requested switch to an oral option. Patient switched from Mounjaro to Rybelsus 7 mg daily HPI: States she has a bad reaction, indigestion from the Rybelsus. Couldn't get indigestion under control. Stopped taking it and feels better now. Took about a week and half; has been maybe a week without it Self-increased dose of Lantus when stopped Rybelsus to even out BGs States BGs have been well controlled recently Current DM Medications: Rybelsus 7 mg once daily - no longer taking Lantus 52 units once daily - taking 62 units once daily Previously Trialed DM Meds: Glimepiride - nocturnal hypoglycemia Metformin - reduced renal fxn Pioglitazone - swelling Trulicity - tolerated well; unable to procure d/t backorder - switched to Mounjaro Mounjaro - tolerated well; procurement issues (switched to Rybelsus) Diet Doesn't eat much in the evening Denies any recent changes GLYCEMIC CONTROL: Glucometer present at visit: No Hypoglycemia: No BGs around 113-117 in the morning Had an 89 this morning Past medical history reviewed. ALLERGIES Allergen Reactions Levaquin [Levofloxa* itching,diarrhea,dausea,burning skin Seasonal Allergies Other: See Comments Sinus Sulfa (Sulfonamide * rash and hives Current Outpatient Medications Medication Sig Dispense Refill calcitriol (ROCALTROL) 0.5 mcg capsule Take 0.5 mcg by mouth. clotrimazole (LOTRIMIN) 1 % cream Apply to affected area. lidocaine (SALONPAS) 4 % patch Apply 1 Patch as directed. senna-docusate (SENNA-S) 8.6-50 mg per tablet Take by mouth. tirzepatide (MOUNJARO) 2.5 mg/0.5 mL pen injector Inject subcutaneously. semaglutide (RYBELSUS) 7 mg tablet Take 1 tablet (7 mg) by mouth daily before breakfast. Take 30 minutes before the first food, beverage, or other oral medications of the day with no more than 4 ounces of plain water (Patient not taking: Reported on 06/26/2023) 90 tablet 3 insulin glargine (LANTUS SOLOSTAR U-100 INSULIN) 100 unit/mL (3 mL) Inject 52 Units subcutaneously daily at bedtime. simvastatin (ZOCOR) 40 mg tablet Take 1 tablet by mouth daily at bedtime. For cholesterol. 90 tablet 3 venlafaxine ER (EFFEXOR XR) 37.5 mg 24 hr capsule Take 1 capsule by mouth once daily. 90 capsule 1 hydrALAZINE (APRESOLINE) 25 mg tablet Take [...] by mouth once daily. Per Dr. Yulia Antoine, cardiology. Insulin [place], Disposable, 29 gauge x 1/2 Use once daily as directed. Dx E11.29 100 Each 4 mqtaxmtpxrr-qbnepsdtz-ovwtysmh (TRELEGY ELLIPTA) 100-62.5-25 mcg inhalation powder Inhale 1 Puff as instructed once daily. docusate sodium (COLACE) 100 mg capsule Take 1 capsule by mouth as needed. melatonin 5 mg tablet Take 2 tablets by mouth. senna (SENOKOT) 8.6 mg tab Take 1 tablet by mouth as needed. Vit C-Vit C-Uxuort-UuLr-Lutein (PRESERVISION LUTEIN) 226 mg-200 unit -5 mg-0.8 [...] E11.22, N18.4, Z79.4 - Improving control - Continue Lantus 62 units once daily (updated med list to reflect as patient taking) - Stop Rybelsus. May consider retrial of once weekly glp-1 in future if supply issues improve as patient tolerating Trulicity and then Mounjaro very well - Statin prescribed - simvastatin - Blood glucose monitoring on a once daily schedule - Counseled on healthy diet and regular exercise - Follow up in 1 month, sooner should any other issues arise. - Due for A1c ~07/30/23 Follow Up: Next PCP visit: 08/30/23 Next PharmD visit: 07/31/23 Tessa Brock, Janessa Primary Care Clinical Wine And Spirits Clerk documented in this encounter [facility] 06-26-2023 Instructions Kang Vickers II, OD - 06/26/2023 1:41 PM EDT Assessment and Plan E11.9 Type 2 diabetes mellitus without retinopathy (HCC) (primary encounter diagnosis) Comment: Examination shows no ocular diabetic complications today. Discussed need for optimal diabetes control to minimize chance of ocular complications. Advise patient to immediately report worsening in status or additional symptoms. Continue yearly dilated eye examinations. 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 Monitor yearly. Z96.1 Pseudophakia, both eyes Comment: Posterior chamber intraocular lenses are well positioned and clear. H52.13 Myopia, bilateral H52.223 Regular astigmatism, bilateral Comment: Stable glasses power. Update as desired. I have confirmed and edited as necessary the relevant HPI, ophthalmic history, ROS, and the neuro exam findings as obtained by others. I have seen and examined Val Erickson. I have discussed the case and the management of this patient's care with the Resident/Fellow, if applicable. I also have reviewed and agree with the assessment and plan as stated above and agree with all of its relevant components. documented in this encounter [facility] 06-26-2023 History of Present illness Narrative Assessment and Plan E11.9 Type 2 diabetes mellitus without retinopathy (HCC) (primary encounter diagnosis) Comment: Examination shows no ocular diabetic complications today. Discussed need for optimal diabetes control to minimize chance of ocular complications. Advise patient to immediately report worsening in status or additional symptoms. Continue yearly dilated eye examinations. 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 Monitor yearly. Z96.1 Pseudophakia, both eyes Comment: Posterior chamber intraocular lenses are well positioned and clear. H52.13 Myopia, bilateral H52.223 Regular astigmatism, bilateral Comment: Stable glasses power. Update as desired. I have confirmed and edited as necessary the relevant HPI, ophthalmic history, ROS, and the neuro exam findings as obtained by others. I have seen and examined Val Erickson. I have discussed the case and the management of this patient's care with the Resident/Fellow, if applicable. I also have reviewed and agree with the assessment and plan as stated above and agree with all of its relevant components. documented in this encounter [facility] 06-11-2023 History of Present illness Narrative [facility] Care Path Telephonic Outreach Provider Action/FYI Contact made with patient: No, Left message Annalisa Stephen RN June 11, 2023 1:30 PM documented in this encounter [facility] 06-10-2023 Miscellaneous Notes PharmD returned call to patient. Said she gets meds through [facility], can't get in Mounjaro 7.5mg pens because of backorder. Said she gave her last shot on Saturday, 06/06. She lives in [place], only 1 small pharmacy nearby ([facility]). Says pharmacy can't get any Mounjaro in stock. Son has a car, could drive to [place] or [place] pharmacy IF NEEDED but not ideal. 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 Certainly preferable for all meds to come mail-order through [facility]. She is frustrated with the supply issues with Mounjaro (and previously Trulicity). States she has the same issue every month, is tired of the headache of supply issues. Would prefer to switch to an oral pill that is not having supply issues. Discussed with patient, will SWITCH Mounjaro to Rybelsus, first dose starting this Saturday, 06/13. PharmD f/up scheduled for mid-June. INITIATE Rybelsus 7mg daily starting 06/13. Counseled to take on empty stomach with small glass of water, wait at least 30 mins before having any other food/med/beverage. DISCONTINUE Mounjaro. Advised to contact PharmD if any issues. Audrey Amanda PharmD, BCPS (covering for Tessa Brock) Primary Care Clinical Pharmacist Pt called and she can not get the Mounjaro 7.5mg. This is on back order per pt. She takes her injection on Saturday and asking what to do? Change medication? Please advise pt. Juli Figueredo LPN documented in this encounter [facility] 06-05-2023 Miscellaneous Notes Patient seen by PharmJessie today. Would benefit from further titration of Mounjaro to reduce insulin requirements. Mounjaro not yet included in pharmacist CPA; pending Rx for provider signature. Patient's request for medication is as follows: Requested Prescriptions Pending Prescriptions Disp Refills tirzepatide (MOUNJARO) 7.5 mg/0.5 mL pen injector 2 mL 1 Sig: Inject 7.5 mg subcutaneously one time a week. Prescription(s) as above. Please process accordingly. Tessa Brock PharmD Primary Care Clinical Wine And Spirits Clerk documented in this encounter [facility] 06-05-2023 History of Present illness Narrative Primary Care Pharmacy Visit CC (Reason for Consult): (E11.22, N18.4, Z79.4) Type 2 diabetes mellitus with stage 4 chronic kidney disease, with long-term current use of insulin ([facility]) (primary encounter diagnosis) Goal: A1c<7% (per consult) Last Collaborating Physician Visit: 05/01/23 Val Erickson is a 78 year old female presenting for follow up visit telephone call. Patient consents to pharmacy collaborative practice agreement. . HPI: A1c: 8.3 (05/01/23) Reports extreme hunger the next morning if she doesn't eat much for dinner Past History: Previously trialed meds Glimepiride - nocturnal hypoglycemia Metformin - reduced renal fxn Pioglitazone - swelling - 04/10/23 - Trulicity (well tolerated) switched to Mounjaro d/t shortage of Trulicity at pharmacy - 05/01/23 - A1c results showed significant improvement from 12.4% to 8.3% Current DM Medications: Mounjaro 5mg weekly (Saturday- Has 1 dose left) Lantus 58 units once daily at bedtime - taking 64 units daily Patient reports CP, SOB, TAYLOR, blurred vision, dizziness or lightheadedness Goes away immediately after tylenol Past medical, family and social history reviewed and updated. DIET/EXERCISE/SOCIAL Hx: No significant changes. 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 Pharmacy: [facility] Rx coverage: MEDICARE / Plan: MEDICARE A AND B / Product Type: Medicare / Current Outpatient Medications Medication Sig Dispense Refill tirzepatide (MOUNJARO) 5 mg/0.5 mL pen injector Inject 5 mg subcutaneously one time a week. 2 mL 1 simvastatin (ZOCOR) 40 mg tablet Take 1 tablet by mouth daily at bedtime. For cholesterol. 90 tablet 3 venlafaxine ER (EFFEXOR XR) 37.5 mg 24 [...] by mouth once daily. Per Dr. Yulia Antoine, cardiology. Insulin [place], Disposable, 29 gauge x 1/2 Use once daily as directed. Dx E11.29 100 Each 4 otoiqiufdpy-vwyzdteso-jgarlskv (TRELEGY ELLIPTA) 100-62.5-25 mcg inhalation powder Inhale 1 Puff as instructed once daily. docusate sodium (COLACE) 100 mg capsule Take 1 capsule by mouth as needed. melatonin 5 mg tablet Take 2 tablets by mouth. senna (SENOKOT) 8.6 mg tab Take 1 tablet by mouth as needed. Vit C-Vit K-Rsrbgt-HdPr-Lutein (PRESERVISION LUTEIN) 226 mg-200 unit -5 mg-0.8 mg cap Take 1 capsule by mouth once daily. COMPOUNDED PRESCRIPTION Take 1 tablet by mouth twice daily. Plexus Bio-5 (Probiotic) blood sugar diagnostic ([employer] CorporationTOUCH ULTRA TEST) test strip Test blood sugar(s) 2 times daily. (Patient taking differently: 1 Each. Test blood sugar(s) 2 times daily.) 200 Strip 3 epoetin zari (PROCRIT,EPOGEN) 10,000 unit/mL injection Inject 10,000 Units subcutaneously q 4 WEEKS. 12,000 Units every two weeks. 0 Lancets (FREESTYLE LANCETS) Misc Misc Test twice daily 250.02 100 3 No current facility-administered medications for this visit. GLYCEMIC CONTROL: Glucometer present at visit: Yes SMBG s: FB, 116, 170, 180, 105, 173, 150, 89 Hypoglycemia: denies VITALS: There were no vitals taken for this visit. Wt: 119.7 kg (264 lb) BMI: 45.32 kg/(m^2) Last 3 Encounter BP Readings: Date: BP: 05/01/2023 118/68 01/04/2023 106/66 08/15/2022 116/74 Labs reviewed Lab Results Component Value Date HBA1C 8.3 05/01/2023 HBA1C 12.4 01/04/2023 HBA1C 11.6 08/15/2022 HBA1C 7.6 08/09/2021 HBA1C 6.5 05/19/2018 HBA1C 6.4 02/18/2012 HBA1C 7.8 09/21/2011 CMP: Glucose 171 03/22/2021 BUN 33 05/19/2018 Creatinine 2.02 03/22/2021 Sodium 140 03/22/2021 Potassium 4.4 03/22/2021 Calcium 10 03/22/2021 Lab Results Component Value Date CHOL 121 05/19/2018 LDL 50 05/19/2018 HDL 44 05/19/2018 TG 135 05/19/2018 Albumin/Creat Ratio (mg/g) Date Value 09/21/2011 77 (H) PHARMACOTHERAPY PREVENTATIVE MEDS: On GEOVANNI/ARB: No On Statin: Yes ASSESSMENT/PLAN: 1. Type 2 diabetes mellitus with stage 4 chronic kidney disease, with long-term current use of insulin (HCC) - ICD9: 250.40, 585.4, V58.67, ICD10: E11.22, N18.4, Z79.4 - Uncontrolled - Continue Mounjaro 5mg x 1 more dose (06/07/23) - Increase tirzepatide (Mounjaro) to 7.5mg weekly starting 06/14/23 (pending Rx for provider signature) - Decrease Insulin glargine (Lantus/Basaglar/Toujeo) to 52 units daily starting today - Statin prescribed - simvastatin - Blood glucose monitoring on a once daily schedule; FBG - Counseled on healthy diet and regular exercise -Discussed high protein items that may be added to meals to help with hunger - Discussed diabetic education issues of diabetes complications and monitoring required, hypoglycemic/hyperglycemic symptoms, and medication-specific side effects and monitoring -Advised patient to test before first snack on days she wakes up extremely hungry throughout the night -Advised patient to keep a written log of SMBG - Follow up in 4 weeks, sooner should any other issues arise. - Counseled on low sodium diet -Strongly advised patient to contact PharmD if she notices low BG readings -Next A1c due ~07/2023 Follow-up: PCP appt: 08/30/23 PharmD appt: July 03, 2023 at 2pm (telephone) Utilized patient teach back technique and Patient verbalized understanding of instructions. Neha Espinoza RPh Patient reviewed with the registered pharmacy technician who interviewed the patient alone. Arnold elements of history confirmed during appointment/call. The progress note, assessment, and plan reflect my input and comments. My additions to the progress note are underlined. Tessa Brock PharmD Primary Care Clinical Wine And Spirits Clerk documented in this encounter [facility] 05-22-2023 History of Present illness Narrative [facility] Care Path Telephonic Outreach Provider Action/FYI Discussed [...] to talk about today? No Based on threat monitoring analyst, the following disposition is advised: Other Call Dispositions No action needed Program Disposition Patient dispositioned from Program today: No Annalisa Stephen RN May 22, 2023 12:30 PM Program Disposition Patient dispositioned from Program today: No Annalisa Stephen RN May 22, 2023 12:30 PM documented in this encounter [facility] 05-15-2023 History of Present illness Narrative [facility] Path Telephonic Outreach Provider Action/FYI I was [...] to talk about today? No Based on threat monitoring analyst, the following disposition is advised: Other Call Dispositions No action needed Program Disposition Patient dispositioned from Program today: No Annalisa Stephen RN May 15, 2023 10:01 AM Program Disposition Patient dispositioned from Program today: No Annalisa Stephen RN May 15, 2023 10:01 AM documented in this encounter [facility] 05-14-2023 Miscellaneous Notes Called and spoke [...] scheduled for PharmD f/up on 06/05/23. Tessa Brock PharmD Primary Care Clinical Wine And Spirits Clerk Pt states [facility] says they have [...] Dhara Zeng LPN documented in this encounter [facility] 05-14-2023 History of Present illness Narrative [facility] Care Path Telephonic Outreach Provider Action/FYI Contact made with patient: No, Left message Annalisa Stephen RN May 14, 2023 12:12 PM documented in this encounter [facility] 05-08-2023 Miscellaneous Notes Patient seen by PharmD [...] Prescription(s) as above. Please process accordingly. Tessa Brock PharmD Primary Care Clinical Wine And Spirits Clerk documented in this encounter [facility] 05-08-2023 History of Present illness Narrative Primary Care Pharmacy Visit CC (Reason for Consult): (E11.22, N18.4, Z79.4) Type 2 diabetes mellitus with stage 4 chronic kidney disease, with long-term current use of insulin ([facility]) (primary encounter diagnosis) Goal(s): A1c <7% (per consult) Last Collaborating Provider Visit: 05/01/[address] Papi Erickson is a 78 year old female presenting [...] by mouth once daily. Per Dr. Yulia Antoine, cardiology. Insulin [place], Disposable, 29 gauge x 1/2 Use once daily as directed. Dx E11.29 100 Each 4 tboazvjggby-njukqfxkv-qceknvwe (TRELEGY ELLIPTA) 100-62.5-25 mcg inhalation powder Inhale 1 Puff as instructed once daily. docusate sodium (COLACE) 100 mg capsule Take 1 capsule by mouth as needed. melatonin 5 mg tablet Take 2 tablets by mouth. senna (SENOKOT) 8.6 mg tab Take 1 tablet by mouth as needed. Vit C-Vit O-Uxdnfk-DsHt-Lutein (PRESERVISION LUTEIN) 226 mg-200 unit -5 mg-0.8 mg cap Take 1 capsule by mouth once daily. COMPOUNDED PRESCRIPTION Take 1 tablet by mouth twice daily. Plexus Bio-5 (Probiotic) blood sugar diagnostic ([employer] CorporationTOUCH ULTRA TEST) test strip Test blood sugar(s) [...] visit: 08/30/23 Next PharmD visit: 06/05/23 Tessa Brock PharmD Primary Care Clinical Wine And Spirits Clerk The majority of the pharmacy visit (> 50%) was spent counseling and/or coordinating care for the patient. interaction: telephonic time was 10 minutes. documented in this encounter [facility] 05-03-2023 History of Present illness Narrative CDM ENROLLMENT Provider Action / FYI: Contact [...] to talk about today? Yes Based on threat monitoring analyst, the following disposition is advised: Other Call Dispositions No action needed Paz Gonzalez RN May 03, 2023 11:06 AM CDM ENROLLMENT Provider Action / FYI: Contact Made with Patient: No, left a message. Paz Gonzalez RN May 02, 2023 4:01 PM documented in this encounter [facility] 05-01-2023 Instructions Neel Turpin MD - 05/01/2023 10:44 AM EST FASTING LABS IN AUGUST. YOUR A1C IS 8.3% TODAY. documented in this encounter [facility] 05-01-2023 History of Present illness Narrative This note was created using [employer]. Subjective Val Erickson is a 78 year old female here [...] by mouth once daily. Per Dr. Yulia Antoine, cardiology. Insulin [place], Disposable, 29 gauge x 1/2 Use once daily as directed. Dx E11.29 lxfxfpgxilz-nrmxvferw-mqhwwapq (TRELEGY ELLIPTA) 100-62.5-25 mcg inhalation powder Inhale 1 Puff as instructed once daily. docusate sodium (COLACE) 100 mg capsule Take 1 capsule by mouth as needed. melatonin 5 mg tablet Take 2 tablets by mouth. senna (SENOKOT) 8.6 mg tab Take 1 tablet by mouth as needed. Vit C-Vit D-Omkash-CrYg-Lutein (PRESERVISION LUTEIN) 226 mg-200 unit -5 mg-0.8 [...] ml/min (HCC) - ICD9: 585.4, ICD10: N18.4 - eGFR: Stable - CBC 4. Hyperparathyroidism, secondary renal (HCC) - ICD9: 588.81, ICD10: N25.81 Monitored. - COMP METABOLIC PANEL 5. Essential hypertension - ICD9: 401.9, ICD10: I10 - Controlled 6. Obesity, Class III, BMI 40-49.9 (morbid obesity) (HCC) - ICD9: 278.01, ICD10: E66.01 Weight decreasing Neel Turpin MD documented in this encounter [facility] 04-26-2023 History of Present illness Narrative Value Hub Review Provider Action / FYI: QAE - No exclusions. Added to CDM enrollment shared list. Upon review of patient chart, does patient meet exclusion criteria? No CDM documented in this encounter [facility] 04-23-2023 Miscellaneous Notes [facility] called to see if providers office [...] genetic testing done. documented in this encounter [facility] 04-15-2023 History of Present illness Narrative Subjective Patient ID: Val Erickson is a 78 y.o. female who presents [...] a humidifier for her oxygen from her [employer]. She can also use a humidifier [...] months. This note was transcribed using the [employer] Dictation system. There may be grammatical, punctuation, or verbiage errors that occur with voice recognition programs. Paula Walter DO 04/15/23 12:01 PM documented in this encounter [facility] Work Phone: 02-14-2023 Miscellaneous Notes Patient's son returned call. Notified of update. No further questions Sent [employer] to [facility]. Call attempt to reach patient and Rd; unable to reach. Left VM with update and advised to contact office if unable to get from [facility]. Tessa Brock, PharmD Primary Care Clinical Wine And Spirits Clerk Rd, Pt's son calling to let you know [...] Juli Figueredo LPN documented in this encounter [facility] 02-14-2023 History of Present illness Narrative Images [...] (Lantus increased to 55 units daily) Val Erickson is a 78 year old female presenting for initial visit: This initial consult was conducted in person with the patient where the consult agreement was explained. The patient may decline or cancel the agreement at any time. After consideration, the patient consented to the pharmacy consult agreement and agreed to allow medications be collaboratively managed by a pharmacist. HPI: Here with her son, Rd States her insulin dose was increased at last visit. Needs refill for updated dose sent to pharmacy, has only 1 pen left Has noticed BGs have changed and are fluctuating throughout the day Had some Novolog left over from when she was in the senior living and was using but has now run out, no longer using Sometimes takes some extra Lantus in the morning if her BG is higher Rd reports he feels the meals she's eating [...] by mouth once daily. Per Dr. Yulia Antoine, cardiology. Insulin [place], Disposable, 29 gauge x 1/2 Use once daily as directed. Dx E11.29 100 Each 4 mtktfnjwgut-gqzyxthkm-nrawxitc (TRELEGY ELLIPTA) 100-62.5-25 mcg inhalation powder Inhale [...] capsule by mouth once daily. Vit C-Vit F-Jpswty-VbHe-Lutein (PRESERVISION LUTEIN) 226 mg-200 unit -5 mg-0.8 [...] disease, with long-term current use of insulin ([facility]) - ICD9: 250.40, 585.4, V58.67, ICD10: E11.22, [...] Next PharmD visit: 03/13/23 via phone Tessa Brock PharmD Primary Care Clinical Wine And Spirits Clerk The majority of the pharmacy visit (> 50%) was spent counseling and/or coordinating care for the patient. interaction: face to face time was 55 minutes. documented in this encounter [facility] 02-14-2023 Instructions Tessa Brock RPh - 02/14/2023 9:00 AM EST Increase Lantus to 60 units once daily Start Trulicity 0.75 mg once weekly documented in this encounter [facility] 02-11-2023 Miscellaneous Notes Patient has been [...] Viktoria Johnston RN. documented in this encounter [facility] 01-04-2023 Instructions Kacy Berumen APRN.CNP - 01/04/2023 10:36 AM EDT Increase Lantus to 55 units at bedtime documented in this encounter [facility] 01-04-2023 History of Present illness Narrative CC: Patient presents with: F/U 6 months HPI Val Erickson is a 77 year old female who [...] EXTRACTION HX 2016 both eyes catacts removed, [facility] CHOLECYSTECTOMY 1970 COLONOSCOPY FLX DX [...] by mouth once daily. Per Dr. Yulia Antoine, cardiology. Insulin [place], Disposable, 29 gauge x 1/2 Use once [...] capsule by mouth once daily. Vit C-Vit C-Syhzfm-SjMx-Lutein (PRESERVISION LUTEIN) 226 mg-200 unit -5 mg-0.8 mg cap Take 1 capsule by mouth once daily. blood sugar diagnostic ([employer] CorporationTOUCH ULTRA TEST) test strip Test blood sugar(s) 2 times daily. (Patient taking differently: 1 Each. Test blood sugar(s) 2 times daily.) Lancets (FREESTYLE LANCETS) Misc Misc Test twice daily 250.02 ddnqsxnocew-qtxrmifpr-wwvbyvpk (TRELEGY ELLIPTA) 100-62.5-25 mcg inhalation powder Inhale [...] Kacy Berumen APRN.CNP documented in this encounter [facility] 12-28-2022 History of Present illness Narrative Cardiology Subsequent Encounter Clinic Note Name: Val Erickson : 1945 CC: HFrEF Active Issues: 77-year-old female with a medical history of diabetes, neuropathy, hypertension, hyperlipidemia who was first seen at [facility] January 29, 2022 with shortness of [...] baseline creatinine 1.9-2.2. Follows with outside hospital resident medical officer. Echocardiogram January 2022: CONCLUSIONS: 1. Left ventricular systolic function is severely decreased with a 30-35% estimated ejection fraction. 2. There is global hypokinesis of the left ventricle with minor regional variations. 3. Moderate mitral valve regurgitation. 4. No other echocardiograms available for comparison Past Medical History Past Medical History: Diagnosis Date CHF (congestive heart failure) ([facility]) COPD (chronic obstructive pulmonary disease) ([facility]) Past Surgical History Past Surgical History: Procedure [...] 112/66 Pulse 89 Ht 1.6 m (5' 3) Wt 115 kg (254 lb 8 oz) [...] hypertension, hyperlipidemia who was first seen at [facility] January 29, 2022 with shortness of [...] mg 3 times daily. RTC 6 months Chris Antoine MD Advanced Heart Failure/Transplant Cardiology Cardio-Oncology [facility] documented in this encounter [facility] Work Phone: 12-07-2022 History of Present illness Narrative Patient checked in with 4 minutes left of appointment time. She declined to wait or schedule for later time today. Left without being seen Kacy Berumen APRN.JERRY documented in this encounter [facility] 11-28-2022 Miscellaneous Notes Daisy Calzada- terell [facility] pharmacist is asking for clarification on instructions for the furosemide 20 mg take an extra 20 mg daily as needed. Please phone [phone] with clarification. Reference # [id number]. Asking provider to phone with clarification within 24 hours. documented in this encounter [facility] 11-21-2022 Miscellaneous Notes Last office visit: [...] RX is approved and sent to the [facility] pharmacy. Lou Rodriguez documented in this encounter [facility] 10-04-2022 Note Send Summary: Discharge Summary [...] at Discharge: .Home Vital Signs: T PRBPMAPSpO2 [id number]/559524% Date/Time10/04 12: 12: 4: 12: 12: 12:51 Range(35.6C - 36.9C ) (88 - 95 ) (16 - 18 ) (116 - 137 )/ (58 - 72 ) (82 - 99 ) (91% - 98% ) Highest temp of 36.9 C was recorded at 10/03 19:54 Date: Weight/Scale Type:Height: 03-Oct-2022 18:13597 kg / lldwxcdu700.9 cm Physical Exam: Constitutional: Alert and cooperative [...] 130ms. The patient presented yesterday, 10/03/22 for ONLINE PROGRAM COORDINATOR-D insertion with Dr. Browne for primary prevention. [...] 10/11/22 at 11:00 AM as scheduled [facility] [address] [place] [address] - . Discharge Medications: Home Medication calcitriol 0.5 mcg oral capsule - 1 cap(s) orally once a day Colace 100 mg oral capsule - 1 cap(s) orally once a day furosemide 20 mg oral tablet - 1 tab(s) orally once a da (more content not included)... [facility] 10-04-2022 Hospital course Narrative Send Summary: [...] 130ms. The patient presented yesterday, 10/03/22 for ONLINE PROGRAM COORDINATOR-D insertion with Dr. Browne for primary prevention. [...] 10/11/22 at 11:00 AM as scheduled - [facility] 2n Floor Cardio, [address] [place] [address] - . Discharge Medications: Home Medication calcitriol [...] time of discharge: Full Code Electronic Signatures: Aldo Diaz (VISUAL DISPLAY MANAGER-COCONUT COOKER) (Signed 04-Oct-2022 13:29) Authored: Send Summary, Summary Content, Ongoing Care, DNR Status, Note Completion Last Updated: 04-Oct-2022 13:29 by Aldo Diaz (VISUAL DISPLAY MANAGER-COCONUT COOKER) documented in this encounter [facility] Work Phone: 10-03-2022 Note Pre-procedure Verifi cation [...] Findings: grossly normal anatomy Procedure performed by: pr Concrete Float Maker(s): none Estimated Blood Loss (mL): none Specimen: [...] using a Seldinger technique using a 4 [place] micropuncture kit. A regular J-wire was introduced [...] a subcuticular uninterrupt (more content not included)... [facility] 10-03-2022 Note History of Present I llness: History Present Illness Reason for surgery: HFrEF, LBBB HPI: This is a 77 year old female with a PMH significant for DM, HTN, CKD stage 3, HLD and HFrEF. The patient has severely decreased LVEF of 23%, MUGA scan June 2022. She also has a LBBB of 130ms. The patient presents today, 10/03/22 for ONLINE PROGRAM COORDINATOR-D insertion with Dr. Browne for primary prevention. [...] Reviewed: yes Impression/Procedure: Impression and Planned Procedure: ONLINE PROGRAM COORDINATOR-D device insertion Review of Systems: Review of [...] that they understood the risks. Electronic Signatures: Aldo Diaz (VISUAL DISPLAY MANAGER-COCONUT COOKER) (Signed 03-Oct-2022 12:28) Authored: History of Present Illness, Allergies, Home Medication Review, Impression/Procedure, Review of Systems, Physical Exam, Consent, Note Completion Claus Browne) (Signed 03-Oct-2022 13:28) Co-Signer: History of Present Illness, Allergies, Home Medication Review, Impression/Procedure, Review of Systems, Physical Exam, Consent, Note Completion Last Updated: 03-Oct-2022 13:28 by Claus Browne) [facility] 10-03-2022 History and physical note Images [...] 130ms. The patient presents today, 10/03/22 for ONLINE PROGRAM COORDINATOR-D insertion with Dr. Browne for primary prevention. [...] Reviewed: yes Impression/Procedure: Impression and Planned Procedure: ONLINE PROGRAM COORDINATOR-D device insertion Review of Systems: Review of [...] that they understood the risks. Electronic Signatures: Aldo Diaz (VISUAL DISPLAY MANAGER-COCONUT COOKER) (Signed 03-Oct-2022 12:28) Authored: History of Present Illness, Allergies, Home Medication Review, Impression/Procedure, Review of Systems, Physical Exam, Consent, Note Completion Claus Browne) (Signed 03-Oct-2022 13:28) Co-Signer: History of Present Illness, Allergies, Home Medication Review, Impression/Procedure, Review of Systems, Physical Exam, Consent, Note Completion Last Updated: 03-Oct-2022 13:28 by Claus Browne) [facility] Work Phone: 10-03-2022 History and physical note [...] 130ms. The patient presents today, 10/03/22 for ONLINE PROGRAM COORDINATOR-D insertion with Dr. Browne for primary prevention. [...] Reviewed: yes Impression/Procedure: Impression and Planned Procedure: ONLINE PROGRAM COORDINATOR-D device insertion Review of Systems: Review of [...] that they understood the risks. Electronic Signatures: Aldo Diaz (VISUAL DISPLAY MANAGER-COCONUT COOKER) (Signed 03-Oct-2022 12:28) Authored: History of Present Illness, Allergies, Home Medication Review, Impression/Procedure, Review of Systems, Physical Exam, Consent, Note Completion Claus Browne) (Signed 03-Oct-2022 13:28) Co-Signer: History of Present Illness, Allergies, Home Medication Review, Impression/Procedure, Review of Systems, Physical Exam, Consent, Note Completion Last Updated: 03-Oct-2022 13:28 by Claus Browne) documented in this encounter [facility] Work Phone: 10-03-2022 Note YP-Xndvnlacfz-Lcuyzjt [address] [place] Work Phone: Electrophysiology Procedur e Testing Please click on the link to view the study images (Normal) 10-03-2022 Note XO-Qvihnxxaav-Ftxitr [address] [place] Work Phone: Electrophysiology Procedur e Testing Please click on the link to view the study images (Normal) 08-15-2022 History of Present illness Narrative Formatting of this note is different fro m the original. CC: Patient presents with: Follow Up HPI Val Erickson is a 77 year old female who presents today for above. Patient's fasting blood sugars have been in the low 200's for the past month and she is unsure why. There have been no changes to her diet and no steroid use. She is on Lantus 40 units at bedtime. Denies hypoglycemia. Hydrogenation Operator is in [place]. She will have a pacemaker and defibrillator placed 10/03. He increased her Metoprolol to 50 mg daily. She is requesting extra Lasix to have on hand when she has to increase the dose for a few days. REVIEW OF SYSTEMS See HPI PAST MEDICAL HISTORY Diagnosis Date [...] EXTRACTION HX 2016 both eyes catacts removed, [facility] CHOLECYSTECTOMY 1970 COLONOSCOPY FLX DX [...] replacement, revision, left TONSILLECTOMY PRIMARY/SECONDARY <AGE 11 1969 Tonsillectomy TOTAL ABDOMINAL HYSTERECT W/WO RMVL TUBE OVARY 1969 Hysterectomy, DANIEL, Bilateral BSO ALLERGIES Levaquin [Levofloxacin], Seasonal Allergies, and Sulfa (Sulfonamide Antibiotics) MEDICATIONS metoprolol succinate ER (TOPROL XL) 25 mg 24 hr tablet Take 50 mg by mouth once daily. Per Dr. Yulia Antoine, cardiology. furosemide (LASIX) 20 mg tablet Take 1 tablet by mouth once daily. jmxxbciykep-qqxjltxvh-bbuednxz (TRELEGY ELLIPTA) 100-62.5-25 mcg inhalation powder Inhale 1 Puff as instructed once daily. gabapentin (NEURONTIN) 300 mg capsule Take 1 capsule by mouth twice daily for 180 days. simvastatin (ZOCOR) 40 mg tablet Take 1 tablet by mouth daily at bedtime. For cholesterol. venlafaxine ER (EFFEXOR XR) 37.5 mg 24 hr capsule Take 1 capsule by mouth once daily. docusate sodium (COLACE) 100 mg capsule Take 1 capsule by mouth. melatonin 5 mg tablet Take 2 tablets by mouth. lidocaine (SALONPAS) 4 % patch Apply 1 Patch to affected area. insulin lispro (HUMALOG KWIKPEN) 100 unit/mL Inject subcutaneously. Instructions per sliding scale senna (SENOKOT) 8.6 mg tab Take 1 tablet by mouth. insulin glargine (LANTUS SOLOSTAR U-100 INSULIN) 100 unit/mL (3 mL) Inject 30 Units subcutaneously daily at bedtime. calcitriol (ROCALTROL) 0.5 mcg capsule Take 1 capsule by mouth once daily. Vit C-Vit T-Jqvkyq-KiSn-Lutein (PRESERVISION LUTEIN) 226 mg-200 unit -5 mg-0.8 mg cap Take 1 capsule by mouth once daily. clotrimazole (LOTRIMIN, CLOTRIM) 1 % cream (Patient not taking: Reported on 02/22/2022) Insulin [place], Disposable, 29 gauge x 1/2 ndle Use once daily as directed. Dx E11.29 COMPOUNDED PRESCRIPTION Take 1 tablet by mouth [...] LANCETS) Misc Misc Test twice daily 250.02 FAMILY HISTORY Problem Relation Age of Onset Cancer Mother bone, Cancer Sister bone, Heart Sister pacemaker, valve repair Stroke Father Stroke Sister Stroke Brother age 75 Social History Tobacco Use Smoking status: Never Smokeless tobacco: Never Vaping Use Vaping Use: Never used Substance Use Topics Alcohol use: No Drug use: No PHYSICAL EXAM BP 116/74 Pulse 72 Resp 16 Wt 120.2 kg (265 lb) BMI 45.49 kg/m General Appearance: well appearing, in no acute distress, alert Health maintenance reviewed with patient: DILATED RETINAL EXAM due on 10/19/2020 HBA1C due on 02/09/2022 ADVANCE DIRECTIVE DISCUSSION Never done DEPRESSION ASSESSMENT due on 03/18/2022 COVID-19 VACCINE(3 - Booster for Moderna series) due on 04/27/2023 DIABETIC FOOT EXAM due on 12/18/2022 LDL CHOLESTEROL due on 03/30/2023 ANNUAL PCP TEAM CHRONIC DISEASE VISIT due on 04/27/2023 BP CONTROLLED (<130/80) due on 04/27/2023 HEMOGLOBIN/HEMATOCRIT due on 05/24/2023 SERUM CREATININE due on 07/10/2023 BONE DENSITY Completed INFLUENZA Completed SHINGRIX VACCINE Completed PNEUMOCOCCAL: 65+ Completed DTAP,TDAP,TD Discontinued HEPATITIS C SCREENING Discontinued DATA REVIEWED: Most recent labs ASSESSMENT/PLAN: 1. Type 2 diabetes mellitus with stage 4 chronic kidney disease, with long-term current use of insulin (HCC) - ICD9: 250.40, 585.4, V58.67, ICD10: E11.22, N18.4, Z79.4 (primary diagnosis) - Worsening control - Increase Insulin glargine (Lantus/Basaglar/Toujeo) to 45 units at bedtime - Blood glucose monitoring on a twice daily schedule. Call in one week with update on blood sugar readings - Follow up in 4 months, sooner should any other issues arise. - Following with nephrology: Yes - Recommend maintaining A1c < 7% - PEN NEEDLE, DIABETIC 29 GAUGE X 1/2 - INSULIN GLARGINE (U-100) 100 UNIT/ML (3 ML) SUBCUTANEOUS PEN - HGB A1C 2. Hypertensive heart disease with acute on chronic systolic congestive heart failure (HCC) - ICD9: 402.91, 428.23, ICD10: I11.0, I50.23 - good control - Continue current medication(s) - Recommended regular aerobic exercise. - Recommend home blood pressure monitoring, to bring results in on next visit - Goal of BP <130/80 - METOPROLOL SUCCINATE ER 50 MG TABLET,EXTENDED RELEASE 24 HR 3. Depressive disorder - ICD9: 311, ICD10: F32.A - VENLAFAXINE ER 37.5 MG CAPSULE,EXTENDED RELEASE 24 HR refilled 4. DDD (degenerative disc disease), thoracolumbar - ICD9: 722.51, ICD10: M51.35 - GABAPENTIN 300 MG CAPSULE refilled Prescription instructions reviewed with patient as applicable. Potential red flag symptoms discussed with the patient. Reviewed appropriate action plan to take if red flag symptoms occur. Patient agreeable to treatment plan. During this patient visit I have spent approximately 20 minutes in counseling regarding treatment options, medications, and coordinating care. Kacy Berumen APRN.JERRY documented in this encounter [facility] 04-27-2022 History of Present illness Narrative Formatting of this note is different fro m the original. This note was created using [employer]. Subjective Val Erickson is a 77 year old female. She was seeing Dr. Paula Walter for pulmonary in [facility]. She saw Dr. Yulia Antoine for cardiology. Medications were unchanged. Oxygen use was only as needed and nightly. Back pain was controlled, but she only tolerated gabapentin twice daily. TID caused excessive somnolence and lethargy. Refills were needed. Review of Systems Constitutional: Negative. Respiratory: Negative. Cardiovascular: Positive for leg swelling. Negative for chest pain and palpitations. Gastrointestinal: Negative. Genitourinary: Negative. Musculoskeletal: Positive for back pain and gait problem. 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 docusate sodium (COLACE) 100 mg capsule Take 1 capsule by mouth. melatonin 5 mg tablet Take 2 tablets by mouth. lidocaine (SALONPAS) 4 % patch Apply 1 Patch to affected area. insulin lispro (HUMALOG KWIKPEN) 100 unit/mL Inject subcutaneously. Instructions per sliding scale senna (SENOKOT) 8.6 mg tab Take 1 tablet by mouth. furosemide (LASIX) 20 mg tablet Take 1 tablet by mouth once daily. gabapentin (NEURONTIN) 300 mg capsule Take 1 capsule by mouth three times daily for 90 days. insulin glargine (LANTUS SOLOSTAR U-100 INSULIN) 100 unit/mL (3 mL) Inject 30 Units subcutaneously daily at bedtime. venlafaxine ER (EFFEXOR XR) 37.5 mg 24 hr capsule Take 1 capsule by mouth once daily. simvastatin (ZOCOR) 40 mg tablet Take 1 tablet by mouth daily at bedtime. For cholesterol. calcitriol (ROCALTROL) 0.5 mcg capsule Take 1 capsule by mouth once daily. Vit C-Vit D-Ovorxj-NmVp-Lutein (PRESERVISION LUTEIN) 226 mg-200 unit -5 mg-0.8 mg cap Take 1 capsule by mouth once daily. clotrimazole (LOTRIMIN, CLOTRIM) 1 % cream (Patient not taking: Reported on 02/22/2022) Insulin [place], Disposable, 29 gauge x 1/2 ndle Use once daily as directed. Dx E11.29 COMPOUNDED PRESCRIPTION Take 1 tablet by mouth [...] facility-administered medications for this visit. Objective BP 109/67 Pulse 86 Resp 16 Wt 127 kg (280 lb) SpO2 95% BMI 48.06 kg/m Physical Exam Constitutional: General: She is not in acute distress. Comments: Wheelchair bound. No oxygen. Cardiovascular: Rate and Rhythm: Normal rate and regular rhythm. Heart sounds: No murmur heard. No gallop. Pulmonary: Effort: Pulmonary effort is normal. Breath sounds: Normal breath sounds. Abdominal: General: There is no distension. Palpations: Abdomen is soft. Tenderness: There is no abdominal tenderness. Musculoskeletal: Right lower le+ Pitting Edema present. Left lower le+ Pitting Edema present. Neurological: General: No focal deficit present. Mental Status: She is alert. Psychiatric: Mood and Affect: Mood normal. Test results pertinent to today's visit were reviewed and discussed with the patient. Assessment and Plan 1. DDD (degenerative disc disease), thoracolumbar - ICD9: 722.51, ICD10: M51.35 Controlled. - GABAPENTIN 300 MG CAPSULE 2. Other hyperlipidemia - ICD9: 272.4, ICD10: E78.49 Controlled. - SIMVASTATIN 40 MG TABLET 3. Depressive disorder - ICD9: 311, ICD10: F32.A Controlled. - VENLAFAXINE ER 37.5 MG CAPSULE,EXTENDED RELEASE 24 HR 5. Hyperparathyroidism, secondary renal (HCC) - ICD9: 588.81, ICD10: N25.81 Stable, monitored. 6. Obesity, Class III, BMI 40-49.9 (morbid obesity) (HCC) - ICD9: 278.01, ICD10: E66.01 Stable 7. Type 2 diabetes mellitus with stage 4 chronic kidney disease, with long-term current use of insulin (HCC) - ICD9: 250.40, 585.4, V58.67, ICD10: E11.22, N18.4, Z79.4 Controlled. - Continue current medications Neel Turpin MD documented in this encounter [facility] 03-05-2022 Miscellaneous Notes Formatting of this note might be differe nt from the original. View External Lab - Chemistry [ID [id number]] View External Lab - Hematology [ID [id number]] Labs completed at [facility]. documented in this encounter [facility] 02-26-2022 Miscellaneous Notes Formatting of this note might be differe nt from the original. DAVIDI: Ezra with [facility] calls with PT plan of care. Ezra reports PT will see pt twice a week x 3 weeks then once a week x 4 weeks. Carole Lundy LPN documented in this encounter [facility] 02-23-2022 Miscellaneous Notes Formatting of this note might be differe nt from the original. Message left to [facility] nurse Lata Patient seen yesterday. Refills sent. Medications reconciled. Send current medication list if needed. Lata HARLEY calling from [facility] to report plan of care for patient and SN will visit patient 2 times a week for first week and then weekly. SN will work with patient on disease education and medication management. Lata reports that patient is confused about medications as [facility] didn't give patient any discharge instructions. Sent her home with medications packs for two days but no written instructions Patient has an order for furosemide 20 mg daily but only one pill was sent home. Patient was on Humalog insulin while at [facility]. Patient reports she is not going to Continue while at Home because she doesn't want to check blood sugars three times daily. Lata to have a nurse make a visit on Saturday to assist patient to get medications set up after appointment tomorrow with provider. [facility] to fax updated medication list to provider. Viktoria Johnston RN documented in this encounter [facility] 02-22-2022 History of Present illness Narrative Formatting of this note is different fro m the original. This note was created using [employer]. Subjective Val Erickson is a 77 year old female. She was admitted twice in December at the local hospital for intractable right leg pain. She was prescribed opioids which was not well tolerated. She ended up being discharged to SNF in [place]. While there, she was admitted last month at for pneumonia, versus CHF, SIADH. She was found to have cardiomyopathy with EF 30-35%. Lasix was started, then reduced due to CKD. Actos was discontinued. She was now on prison oxygen for hypoxemia. She was discharged back to [facility] in [place] 01/29-02/20/22. She was now back home, and waiting for Home Health to restart. She has cardiology follow up 03/28/2022 at in [place]. 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 Respiratory: Negative. Cardiovascular: Positive for leg swelling. Negative for chest pain and palpitations. Gastrointestinal: Negative. Genitourinary: Negative. Musculoskeletal: Positive for arthralgias, back pain and gait problem. Skin: Negative for wound. Psychiatric/Behavioral: Negative. 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 melatonin 5 mg tablet Take 2 tablets by mouth. lidocaine (SALONPAS) 4 % patch Apply 1 Patch to affected area. insulin lispro (HUMALOG KWIKPEN) 100 unit/mL Inject subcutaneously. Instructions per sliding scale senna (SENOKOT) 8.6 mg tab Take 1 tablet by mouth. venlafaxine ER (EFFEXOR XR) 37.5 mg 24 hr capsule Take 1 capsule by mouth once daily. calcitriol (ROCALTROL) 0.5 mcg capsule Take 1 capsule by mouth once daily. Insulin [place], Disposable, 29 gauge x 1/2 ndle Use once daily as directed. Dx E11.29 blood sugar diagnostic (ONETOUCH ULTRA TEST) test strip Test blood sugar(s) 2 times daily. (Patient taking differently: 1 Each. Test blood sugar(s) 2 times daily.) Lancets (FREESTYLE LANCETS) [facility] Mis Test twice daily 250.02 furosemide (LASIX) 20 mg tablet Take 1 tablet by mouth once daily. gabapentin (NEURONTIN) 300 mg capsule Take 1 capsule by mouth three times daily for 90 days. insulin glargine (LANTUS SOLOSTAR U-100 INSULIN) 100 unit/mL (3 mL) Inject 30 Units subcutaneously daily at bedtime. simvastatin (ZOCOR) 40 mg tablet Take 1 tablet by mouth daily at bedtime. For cholesterol. Vit C-Vit U-Yttrqq-EyXq-Lutein (PRESERVISION LUTEIN) 226 mg-200 unit -5 mg-0.8 mg cap Take 1 capsule by mouth once daily. clotrimazole (LOTRIMIN, CLOTRIM) 1 % cream (Patient not taking: Reported on 02/22/2022) COMPOUNDED PRESCRIPTION Take 1 tablet by mouth twice daily. Plexus Bio-5 (Probiotic) epoetin zari (PROCRIT,EPOGEN) 10,000 unit/mL injection Inject 10,000 Units subcutaneously q 4 WEEKS. 12,000 Units every two weeks. No current facility-administered medications for this visit. Objective BP 134/78 Pulse 102 Temp 36.4 C (97.6 F) Resp 20 Wt 129 kg (284 lb 6.4 oz) SpO2 96% BMI 48.82 kg/m Physical Exam Constitutional: General: She is not in acute distress. Appearance: She is not ill-appearing. Comments: On portable Oxygen via [place]. HENT: Head: Normocephalic. Eyes: Conjunctiva/sclera: Conjunctivae normal. Cardiovascular: Rate and Rhythm: Regular rhythm. Tachycardia present. Heart sounds: No murmur heard. No gallop. Pulmonary: Effort: Pulmonary effort is normal. Breath sounds: Normal breath sounds. No wheezing or rales. Abdominal: Palpations: Abdomen is soft. Tenderness: There is no abdominal tenderness. Musculoskeletal: Right lower le+ Pitting Edema present. Left lower le+ Pitting Edema present. Neurological: General: No focal deficit present. Mental Status: She is alert. Comments: On wheelchair. Medications reconciled. Hospital reports reviewed. Assessment and Plan 1. CKD (chronic kidney disease) stage 4, GFR 15-29 ml/min ([facility]) - ICD9: 585.4, ICD10: N18.4 (primary diagnosis) - eGFR: Stable 2. DDD (degenerative disc disease), thoracolumbar - ICD9: 722.51, ICD10: M51.35 Dose updated to TID. - GABAPENTIN 300 MG CAPSULE 3. Type 2 diabetes mellitus with stage 4 chronic kidney disease, with long-term current use of insulin ([facility]) - ICD9: 250.40, 585.4, V58.67, ICD10: E11.22, N18.4, Z79.4 poorly controlled - INSULIN GLARGINE (U-100) 100 UNIT/ML (3 ML) SUBCUTANEOUS PEN - HGB A1C - ALBUMIN/CREAT RATIO RND UR 4. Anemia due to chronic kidney disease, unspecified CKD stage - ICD9: 285.21, ICD10: N18.9, D63.1 Monitored. - CBC 5. Essential hypertension - ICD9: 401.9, ICD10: I10 - fair control 6. Mixed hyperlipidemia - ICD9: 272.2, ICD10: E78.2 - to be determined upon return of lab results - COMP METABOLIC PANEL - LIPID PANEL BASIC 7. Hypertensive heart disease with acute on chronic systolic congestive heart failure (HCC) - ICD9: 402.91, 428.23, ICD10: I11.0, I50.23 - newly diagnosed 8. Hypoxemia - ICD9: 799.02, ICD10: R09.02 - On Portable O2 via [place]. Neel Turpin MD documented in this encounter [facility] 02-20-2022 Miscellaneous Notes Formatting of this note might be differe nt from the original. Suzi notified of response. Jesenia Glasgow LPN PCP agrees and will follow Kacy Berumen APRN.JERRY Suzi with [facility] called in and reports Pt is going to discharge from [facility]. They report they put in a referral for Fdc/PT/OT. They report the patient will be coming home on O2. They are asking if the provider will follow the orders. documented in this encounter [facility] 01-29-2022 History of Present illness Narrative 77-year-old female with a medical histor y of diabetes, neuropathy, hypertension, hyperlipidemia who was first seen at [facility] January 29, 2022 with shortness of breath that at that time was attributed to pneumonia. Creatinine was elevated between 1.9-2.2.Cardiac issues include:ACC/AHA stage C HFrEF-Echocardiogram dated January 29, 2022 showed reduced EF to 30-35%.-Not on any GDMT at presentCurrently the patient notes that her shortness of breath is largely at baseline. Was discharged with home oxygen; and is questioning whether she needs it or not. Denies any orthopnea/PND. Does have some lower extremity edema that has been responsive to Lasix and is improving. Denies any clear exertional angina. Notably has chronic kidney disease with baseline creatinine 1.9-2.2. [employer] Work Phone: 01-29-2022 History of Present illness Narrative 77-year-old female with a medical histor y of diabetes, neuropathy, hypertension, hyperlipidemia who was first seen at [facility] January 29, 2022 with shortness of breath that at that time was attributed to pneumonia. Creatinine was elevated between 1.9-2.2.Cardiac issues include:ACC/AHA stage C HFrEF-Echocardiogram dated January 29, 2022 showed reduced EF to 30-35%.-On metoprolol succinate 50 mg.Currently the patient notes that her shortness of breath is largely at baseline. Denies any orthopnea/PND. Does have some lower extremity edema that has been responsive to Lasix and is improving. Denies any clear exertional angina. Notably has chronic kidney disease with baseline creatinine 1.9-2.2. [employer] Work Phone: 01-29-2022 Note Send Summary: Discharge Summary Providers: Provider RoleProvider Name AttendingJairon Lopez ReferringJairon Lopez [facility], Neel Alaniz Discharge: Summary: Admission Date: .26-Jan-2022 11:49:00 Discharge Date: 29-Jan-2022 Admission Reason: Shortness of breath Final Discharge Diagnoses: Acute CHF Procedures: none Vital Signs: T PRBPMAPSpO2 [id number]/7496% Date/Time01/29 7:3411/14 7: 7: 7: 7:34 Range(36.2C - 36.5C ) (77 - 110 ) (14 - 20 ) (95 - 132 )/ (58 - 74 ) (96% - 99% ) Date: Weight/Scale Type:Height: 26-Jan-2022 16:82294.6 kg / trg661.8 cm Physical Exam: Constitutional: Wake, alert, morbidly obese, appears short of breath Head/Neck: Short neck, atraumatic head Respiratory/Thorax: Some improvement in basilar crepitations Cardiovascular: Tachycardic, regular rhythm Gastrointestinal: Distended, soft, nontender Extremities: 2+ bilateral lower extremity pitting edema Neurological: Awake, alert, nonfocal Psychological: Appropriate mood and behavior Hospital Course: 76-year-old female with past medical history of diabetes, neuropathy, hypertension, CKD stage III, hyperlipidemia, anxiety/depression who presented to the ER with shortness of breath. She was admitted with a working diagnosis of acute CHF, possible pneumonia, hyponatremia, elevated creatinine and anemia.On presentation to the ER temperature was 97.9, heart rate 1 1, respiratory rate 18, blood pressure 141/84 and she was saturating 91%. Blood work showed a normal white cell count, hemoglobin of 10, normal platelet count, metabolic panel showed hyponatremia with a sodium of 128 creatinine was elevated 1.90, troponin was 42. UA was unremarkable. X-ray chest showed pulmonary congestion/interstitial infiltrates. Patient was given ceftriaxone and fluids in the ER. She was started on Lasix 40 mg IV twice daily for diuresis, nephrology was consulted, pioglitazone was discontinued as it can worsen CHF, treated with ceftriaxone and azithromycin to cover for pneumonia. Procalcitonin level was sent which is still pending, her urine culture did grow gram-negative bacilli but she has been on ceftriaxone for 4 days now so should be adequate to treat her UTI. She was taking azithromycin at senior living. She did develop some acute kidney injury due to diuresis so her Lasix will be held today. Can resume her 20 mg p.o. Lasix daily from tomorrow. Her sodium improved with fluid restriction, she will be put on a fluid restriction of 1500 mL. I will also stop venlafaxine at discharge. 2D echo showed a reduced EF of 35%, I did discuss this with cardiology and they feel that it is okay if for patient to follow-up as an outpatient. Due to her recent acute kidney injury they would not start any medications right away. She did have elevated troponins but the remained flat most likely elevated due to CHF. Discharge Information: and Continuing Care: Lab Results - Pending: Procalcitonin, Serum Drawn at 26-Jan-2022 21:21:00 Radiology Results - Pending: None Discharge Instructions: Activity: activity as tolerated. May shower.. May drive.. Nutrition/Diet: diabetic/carbohydrate counted Diabetic/Carbohydrate Counted: 75gram/Carb meal, 45gram/Carb snack (1999-2199cals) Fluid Restriction: 1500 mL Respiratory: Oxygen: Administer oxygen at 2 L/min via to maintain SpO2% of 90% Additional Orders: Additional Instructions: Pioglitazone held at discharge it can worsen CHF Fluid restriction of 1500 mL Can resume Lasix p.o. 20 mg daily from tomorrow Follow Up Appointments: Follow-Up Appointment 01: Physician/Dept/Service: PCP Call to Schedule in: 1 week Follow-Up Appointment 02: Physician/Dept/Service: Nephrology Call to Schedule in: 1 week Follow-Up Appointment 03: Physician/Dept/Service: Cardiology Call to Schedule in: 2 weeks Discharge Medications: Home Medication amoxicillin 500 mg oral capsule - 1 cap(s) orally 2 times a day atorvastatin 20 mg oral tablet - 1 tab(s) orally once a day calcitriol 0.5 mcg oral capsule - 1 cap(s) orally once a day Colace 100 mg oral capsule - 1 cap(s) orally once a day erythromycin 500 mg oral tablet - 1 tab(s) orally every 12 hours Lantus Solostar Pen 100 units/mL subcutaneous solution - 40 unit(s) subcutaneous once a day (at bedtime) furosemide 20 mg oral tablet - 1 tab(s) orally once a day lidocaine 4% patch - Apply topically to affected area once a day Melatonin 10 mg oral capsule - 1 cap(s) orally once a day (at bedtime) gabapentin 300 mg oral capsule - 1 cap(s) orally 3 times a day Senna 8.6 mg oral tablet - 1 tab(s) orally once a day (at bedtime) HumaLOG KwikPen 100 units/mL injectable solution - sliding scale Epogen 10,000 units/mL preservative-free injectable solution - 1.3 milliliter(s) injectable every 28 days PRN Medication traMADol 50 (more content not included)... Formerly [facility] 01-29-2022 Hospital Discharge instructions Activity:activity as tolerated. May shower. May drive.Oxygen:Administer oxygen at 2 L/min via to maintain SpO2 % of 90%.Additional Orders:Additional Instructions: Pioglitazone held at discharge it can worsen CHFFluid restriction of 1500 mLCan resume Lasix p.o. 20 mg daily from tomorrowCare Recommendation:I recommend that INPATIENT care is required at: SkilledEstimated Stay: Convalescent stay < 30 daysPrognosis: GoodRehab Potential/Function: ImproveTherapy Orders:Occupational Therapy Orders: 3-5 times/weekPhysical Therapy Orders: 3-5 times/weekProvider Follow Up:Physician To Follow at Skilled/Rehab: Attending Physician at Skilled/RehabFollow Up Appointment 1:Physician/Dept/Service: Primary Care Physician/Facility PhysicianReason for Referral: post hospital stay CHFCall to Schedule in: 1 weekFollow Up Appointment 2:Physician/Dept/Service: Nephrology-pt has followed with Dr. Parks in pastReason for Referral: post hospital stayFollow Up Appointment 3:Physician/Dept/Service: CardiologyReason for Referral: post hospital stay CHFGold Form - Other Clinicians:Nursing Instructions: CONTINUE GEOVANNI WRAPS TO LOWER LEGS REMOVE FOR HYGIENEDAILY WEIGHTSVascular Access Port: left infraclavicular fossaVascular Access Port: top entry, single lumen [facility] 01-26-2022 Note History of Present I llness: HPI: VAL ERICKSON is a 76 year old Female Who presented to the ER from a nursing facility for evaluation of possible pneumonia. On presentation to the ER temperature was 97.9, heart rate 1 1, respiratory rate 18, blood pressure 141/84 and she was saturating 91%. Blood work showed a normal white cell count, hemoglobin of 10, normal platelet count, metabolic panel showed hyponatremia with a sodium of 128 creatinine was elevated 1.90, troponin was 42. UA was unremarkable. X-ray chest showed pulmonary congestion/interstitial infiltrates. Patient was given ceftriaxone and fluids in the ER. According to the patient she has been short of breath for a while but he started getting worse since last Saturday, she was diagnosed as having pneumonia and started on antibiotics, about 3 days ago she was started on 20 mg p.o. daily of Lasix as well, she states that shortness of breath is mostly with activity but now she gets short of breath at rest as well, denies any consistent cough, fevers, chills, nausea, vomiting does complain of occasional chest pain under her breasts bilaterally. She has not been able to lay flat and has been sleeping in the recliner. Denies any previous history of congestive heart failure. Past medical history of diabetes, neuropathy, hypertension, CKD stage III, hyperlipidemia, anxiety/depression Social history denies smoking, denies regular alcohol use, resides in a senior living Review of systems as per HPI, comprehensive review of systems performed Family history positive for congestive heart failure Social History: Social History: Smoking Statusnever smoker (1) Alcohol Usedenies(2) Drug Usedenies (2) Allergies: levofloxacin: Rash Sulfacetamide Sodium: Rash Medications Prior to Admission: Actos 45 mg oral tablet: 1 tab(s) orally once a day gabapentin 300 mg oral capsule: 1 cap(s) orally 3 times a day Tylenol 325 mg oral tablet: 2 tab(s) orally every 8 hours, As Needed - for pain albuterol 2.5 mg/3 mL (0.083%) inhalation solution: 3 milliliter(s) inhaled every 4 hours, As Needed - for shortness of breath Aleve 220 mg oral tablet: 1 tab(s) orally every 24 hours, As Needed - for pain amoxicillin 500 mg oral capsule: 1 cap(s) orally 2 times a day atorvastatin 20 mg oral tablet: 1 tab(s) orally once a day calcitriol 0.5 mcg oral capsule: 1 cap(s) orally once a day Colace 100 mg oral capsule: 1 cap(s) orally once a day cyclobenzaprine 5 mg oral tablet: 1 tab(s) orally every 8 hours, As Needed - for spasms erythromycin 500 mg oral tablet: 1 tab(s) orally every 12 hours Lantus Solostar Pen 100 units/mL subcutaneous solution: 40 unit(s) subcutaneous once a day (at bedtime) furosemide 20 mg oral tablet: 1 tab(s) orally once a day lidocaine 4% patch: Apply topically to affected area once a day Melatonin 10 mg oral capsule: 1 cap(s) orally once a day (at bedtime) Milk of Magnesia 8% oral suspension: 30 milliliter(s) orally once a day, As Needed - for constipation pioglitazone 30 mg oral tablet: 1 tab(s) orally once a day Senna 8.6 mg oral tablet: 1 tab(s) orally once a day (at bedtime) traMADol 50 mg oral tablet: 1 tab(s) orally every 8 hours, As Needed - for pain venlafaxine 37.5 mg oral capsule, extended release: 1 cap(s) orally once a day HumaLOG KwikPen 100 units/mL injectable solution: sliding scale Epogen 10,000 units/mL preservative-free injectable solution: 1.3 milliliter(s) injectable every 28 days. Objective: Objective Information: T PRBPMAPSpO2 [id number]/8396% Date/Time01/26 16: 16: 16: 16: 16:19 Range(36.4C - 36.6C ) (98 - 104 ) (16 - 18 ) (99 - 145 )/ (69 - 98 ) (91% - 100% ) As of 26-Jan-2022 15:30:00, patient is on 2 L/min of oxygen via nasal cannula. Pain reported at 01/26 12:15: 0 = None Physical Exam by System: Constitutional: Wake, alert, morbidly obese, appears short of breath Head/Neck: Short neck, atraumatic head Respiratory/Thorax: Bibasilar crepitations, speaking in small sentences, distant breathing sounds Cardiovascular: Tachycardic, regular rhythm Gastrointestinal: Distended, soft, nontender Extremities: 2+ bilateral lower extremity pitting edema Neurological: Awake, alert, nonfocal Psychological: Appropriate mood and behavior Medications: Medications: Continuous Medications No continuous medications are active Scheduled Medications 1. Albuterol 2.5 mg - Ipratropium 0.5 mg/ 3 mL Neb Soln: 3 mL Inhalation 3 Times a Day 2. Atorvastatin: 20 mg Oral At Bedtime 3. Azithromycin 500 mg/ D5W 250 mL: 500 mg IntraVenous Piggyback Every 24 Hours 4. Calcitriol: 0.5 microgram(s) Oral Daily 5. cefTRIAXone 2 gram/Dextrose 5% IVPB Premixed Soln 50 mL: 50 mL IntraVenous Piggyback Every 24 Hours 6. Docusate: 100 mg Oral 2 Times a Day 7. Furosemide I (more content not included)... Formerly [facility] 01-16-2022 History of Present illness Narrative This is a 77-year-old female w mayra was accompanied by her son Rd and I was asked to see her because of issues with shortness of breath since January of last year. Patient has been on oxygen at 2 L [id number] since then she lives alone at her home. She denies having any fever or cough. She admits to being treated for pneumonia as 29-year-old adult. She denies having any chest pains but admits to chest tightness. On the January admission it was felt that her chest x-ray showed that she had pneumonia and she was placed on antibiotics at that time and was started on the oxygen. She denies any history of any trauma to her chest. She is also been treated for renal failure secondary to her diabetes. She has had left knee replacement, appendectomy, tonsillectomy and adenoidectomy, cholecystectomy and total abdominal hysterectomy with bilateral salpingo-oophorectomy for noncancerous reasons. Her family history is positive for her mother and 1 sister dying with bone cancer. She has a father and brother who had CVAs. She has a second sister who is been treated for congestive heart failure. Patient admits to being a former smoker but that was when she was 29 years old and smoked for only about 6 months and less than half pack per day. She denies any alcohol usage. She is and she denies that her was a smoker. 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 She reports being exposed to some chemicals for about 15 years and had to wear a mask. She was born and raised in [place]. Additionally the patient has a history of some insomnia. Her son says that she does snore at nighttime. -Pulmonary MedicineAlexander [place]ille [id number] DO Work Phone: 12-29-2021 History of Present illness Narrative Formatting of this note is different fro m the original. POPULATION HEALTH NAVIGATION OUTREACH Action/FYI Left VM to schedule LANA consult Pt identified by name and : NO Outreach Outcome/Action Unable to reach patient: Left message Did you use a PCP flex slot to schedule this appointment? Reason for Outreach Care Gap or Scheduling/Wellness visits Payer: Payor: MEDICARE / Plan: MEDICARE A AND B / Product Type: Medicare / Care Gap Reviewed:: LANA Reminder: Reminder note to check Health Maintenance for items below Health Maintenance items due: COVID-19 VACCINE(3 - Booster for Moderna series) due on 08/26/2020 BP CONTROLLED (<130/80) due on 09/21/2020 DILATED RETINAL EXAM due on 10/19/2020 ADVANCE DIRECTIVE DISCUSSION Never done LDL CHOLESTEROL due on 07/13/2021 SERUM CREATININE due on 12/28/2021 Message Sent to Practice: No Navigation Signature: Gregorio Trujillo December 29, 2021 4:45 PM documented in this encounter [facility] 12-29-2021 Miscellaneous Notes Formatting of this note might be differe nt from the original. Pt has been in and out of [facility] twice this month She was last admitted 12/25/21 and discharged to [facility] on 12/27/21 for chcf. documented in this encounter [facility] 12-25-2021 Miscellaneous Notes Formatting of this note might be differe nt from the original. Lata notified of below recommendation, verbalized understanding. Jesenia Glasgow LPN Drug interaction is not significant, especially with as needed medications. Okay to take both. Kacy Berumen APRN.CNP Lata with [facility] calling to let you know pt was d/x from [facility] on Oxycodone and Flexeril. Pt will be seen for nursing , OT and PT. Lata was showing a severe interaction between Flexeril and Tramadol. Please advise Lata. Juli Figueredo LPN documented in this encounter [facility] 12-22-2021 Miscellaneous Notes Formatting of this note might be differe nt from the original. Orders relayed to Suzi. Paul Alcaraz Ma PCP agrees and will follow Kacy Berumen APRN.CNP Suzi- [facility]- reports patient is currently a patient at [facility] and is possibly being discharged tomorrow. HH would like to see patient on Saturday. Asking if pcp is agreeable to sign and follow for orders. Please phone Suzi with verbal. documented in this encounter [facility] 12-20-2021 Miscellaneous Notes Formatting of this note might be differe nt from the original. Patient returns call and provider message reviewed. Patient verbalizes understanding. Patient will call back to schedule orthopaedic appointment once she talks with her son. Viktoria Johnston RN Left message to call office. 12/20/2021 2:06 PM Please let the patient know the preliminary results of the ultrasound were negative for blood clot. She was referred to orthopedics at [facility] visit, Dr. Turpin would like her to schedule if she has not already done so Kacy Berumen APRN.CNP Pt is scheduled at 11:30 today at [facility] for U/S DVT Patient notified of results and provider's instructions. Patient verbalizes understanding. Patient states that her leg has been in a lot of pain since early this morning. Patient transferred to get STAT ultrasound scheduled. Irene Paredes RN Message left for pt to return call to a nurse. Please assist pt in getting the STAT ultrasound completed Patient's D-dimer is elevated, possible blood clot. She needs stat venous ultrasound, please call patient to schedule Kacy Berumen APRN.CNP documented in this encounter [facility] 12-19-2021 History of Present illness Narrative Formatting of this note might be differe nt from the original. Radiology Service Progress Note PATIENT NAME: Val Erickson DATE OF SERVICE: December 19, 2021 TIME: 1:50 PM PATIENT IDENTITY VERIFICATION COMPLETED USING TWO (2) IDENTIFIERS: Name and Date of confirmed by patient verbally. FALL SCREENING: Has the patient had 2 falls in the last year or 1 fall with injury or currently using an Ambulatory Assistive Device (Walker, Cane, Wheelchair, Crutches, etc.)? Yes, Patient High Risk for Falls What interventions were put in place to prevent falls during this visit? Increased Observations by Caregivers PATIENT GENDER DATA: Female. status: : No status: NO. PATIENT RELEVANT IMPLANT DATA REVIEWED: Yes RADIOLOGY DEPARTMENT: General X-ray: Exam(s) Completed: Lower Extremity X-Ray(s): Knee, AP / Lat / Tunne / Merchant Right and Tibia Fibula, Right PERIPHERAL IV DATA: Not applicable SIGNED BY: RT Yelitza(R) December 19, 2021 1:50 PM documented in this encounter [facility] 12-18-2021 History of Present illness Narrative Formatting of this note is different fro m the original. This note was created using [employer]. Subjective Patient was here with son in law to report right leg pain that started 3 weeks ago. The pain is located in the right anterior lateral leg, with radiation to the right knee, right thigh and described as stabbing. Pain is worse with walking and better with Aleve and gabapentin, variable in severity, and associated with insomnia due to pain. Patient also denies injury, change in activity, change in skin color or rash. She was seen in urgent care 12/04 and given prednisone with no relief. Plus she stopped the medication prematurely due to elevated glucose. She was referred to orthopedics but this was not yet scheduled. Son in law raised other concerns preceding right leg pain. He was hinting the pain was subject to distraction, and felt she had declined in mobility, compounded by depression. Patient lived in a small studio and had difficulty getting around the small space. Patient admitted to depression due to her weakness and poor mobility. Review of Systems Constitutional: Positive for fatigue. Negative for appetite change, fever and unexpected weight change. HENT: Negative. Respiratory: Positive for shortness of breath. Negative for cough, chest tightness and wheezing. Cardiovascular: Negative for chest pain, palpitations and leg swelling. Gastrointestinal: Negative. Musculoskeletal: Positive for back pain and gait problem. Psychiatric/Behavioral: Positive for dysphoric mood and sleep disturbance. Negative for self-injury and suicidal ideas. Objective BP 134/66 (BP Site: Left Arm, BP Position: Sitting, BP Cuff Size: Large Adult) Pulse 112 Temp 36.7 C (98.1 F) (Temporal) Resp 20 Physical Exam Constitutional: General: She is not in acute distress. Cardiovascular: Rate and Rhythm: Regular rhythm. Tachycardia present. Pulmonary: Effort: No respiratory distress. Breath sounds: No wheezing or rales. Abdominal: Tenderness: There is no abdominal tenderness. Musculoskeletal: Lumbar back: No spasms. Negative right straight leg raise test and negative left straight leg raise test. Right hip: No deformity or tenderness. Normal range of motion. Right upper leg: No swelling, deformity or tenderness. Right knee: Swelling present. Decreased range of motion. Tenderness present. LCL laxity and MCL laxity present. Normal alignment. Right lower leg: Tenderness present. No swelling. No edema. Left lower leg: No edema. Right ankle: No tenderness. Skin: Findings: No lesion or rash. Neurological: Mental Status: She is alert. Sensory: No sensory deficit. Motor: No weakness. Gait: Gait abnormal. Psychiatric: Attention and Perception: Attention normal. Mood and Affect: Mood is anxious. Speech: Speech normal. Feet:Shoes and socks removed, normal distal pulses, sensitive to 10 gm monofilament, and pes planus. CP PHQ9 12/18/2021 Little interest or pleasure 2 - More than half the days Feeling down, depressed, hopeless 2 - More than half the days Trouble falling or staying asleep, sleeping too much 2 - More than half the days Feeling tired, having little energy 2 - More than half the days Poor appetite or overeating 0 - Not at all Feeling bad about yourself, failure or you have let yourself/family down 1 - Several days Trouble concentrating on things 0 - Not at all Moving or speaking so slowly, or fidgety or restless 0 - Not at all Thoughts that you would be better off , or of hurting yourself in some way 0 - Not at all How difficult have these problems made things Somewhat difficult Interpretation of Total Score 5-9 Mild depression Assessment and Plan 1. Acute leg pain, right - ICD9: 729.5, ICD10: M79.604 (primary diagnosis) DDx progressing DJD right knee, neuropathy, rule out DVT - XR KNEE GENERAL 4V AP BOTH/PA BOTH/LAT/MERC RIGHT - XR TIBIA FIBULA 2V AP/LAT RIGHT - TRAMADOL 50 MG TABLET - CBC - BASIC METABOLIC PNL - D-DIMER 2. Depressive disorder - ICD9: 311, ICD10: F32.A New diagnosis. She declined counseling for now. Shared medical decision making was done. Discussed medication dosage, usage, goals of therapy, and side effects. Medication can help mood and pain. - VENLAFAXINE ER 37.5 MG CAPSULE,EXTENDED RELEASE 24 HR - DEPRESSION SCREENING/ASSESSMENT 3. DDD (degenerative disc disease), thoracolumbar - ICD9: 722.51, ICD10: M51.35 Increase to BID also for right leg pain. Discussed medication dosage, usage, goals of therapy, and side effects. - GABAPENTIN 300 MG CAPSULE Neel Turpin MD documented in this encounter [facility] 12-04-2021 History of Present illness Narrative Formatting of this note is different fro m the original. Images from the original note were not included. ReturnSubjective Patient came in with complaints of right espinoza pain. Patient says its been going on about 2 days. Patient says it does feel better at the moment. Patient says it feels fiery and burning. Patient denies any loss of feeling numbness or tingling in that area. Patient denies any history of injury. The history is provided by the patient. 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 Leg Pain Review of Systems Constitutional: Negative. Skin: Negative. Objective Physical Exam Constitutional: Appearance: Normal appearance. Pulmonary: Effort: Pulmonary effort is normal. Skin: Comments: No erythema or edema noted. No tenderness upon palpation. Neurological: Mental Status: She is alert. 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 Internal hemorrhoids without mention of complication Kidney stones Macular degeneration 06/06/2011 Nonexudative age-related macular degeneration, bilateral, intermediate dry stage 10/09/2016 Obesity 11/09/2008 Sleep eval 07-24: effic 20%, no REM, AHI 1.7, low sat 86%, non-diagnostic Osteopenia 12/15/2009 Other and unspecified hyperlipidemia Spinal stenosis Type I (juvenile type) diabetes mellitus without mention of complication, not stated as uncontrolled (HCC) Unspecified essential hypertension PAST SURGICAL HISTORY Procedure Laterality Date APPENDECTOMY 1964 age 19 ARTHRP KNE CONDYLE&PLATU MEDIAL&LAT COMPARTMENTS 2006 Knee replacement, total, left CATARACT EXTRACTION HX 2015 both eyes catacts removed, [facility] CHOLECYSTECTOMY 1970 COLONOSCOPY FLX DX [...] Seasonal Allergies, and Sulfa (Sulfonamide Antibiotics) MEDICATIONS simvastatin (ZOCOR) 40 mg tablet Take 1 tablet by mouth daily at bedtime. For cholesterol. insulin glargine (LANTUS SOLOSTAR U-100 INSULIN) 100 unit/mL (3 mL) Inject 40 Units subcutaneously daily at bedtime. gabapentin (NEURONTIN) 300 mg capsule Take 1 capsule by mouth daily at bedtime for 180 days. losartan (COZAAR) 50 mg tablet Take 1 tablet by mouth once daily. glimepiride (AMARYL) 4 mg tablet TAKE 1 TABLET DAILY WITH BREAKFAST FOR DIABETES pioglitazone (ACTOS) 30 mg tablet Take 1 tablet by mouth every other day. calcitriol (ROCALTROL) 0.5 mcg capsule Take 1 capsule by mouth once daily. Vit C-Vit L-Idlapp-WwJc-Lutein (PRESERVISION LUTEIN) 226 mg-200 unit -5 mg-0.8 mg cap Take 1 capsule by mouth once daily. clotrimazole (LOTRIMIN, CLOTRIM) 1 % cream Insulin [place], Disposable, 29 gauge x 1/2 ndle Use once daily as directed. Dx E11.29 COMPOUNDED PRESCRIPTION Take 1 tablet by mouth twice daily. Plexus Bio-5 (Probiotic) epoetin zari (PROCRIT,EPOGEN) 10,000 unit/mL injection Inject 10,000 Units subcutaneously q 4 WEEKS. 12,000 Units every two weeks. Lancets (FREESTYLE LANCETS) [facility] [place] Test twice daily 250.02 lidocaine (LIDODERM) 5 % Apply 1 Patch as directed once daily for 14 days. Remove old patch prior to placing new patch. Location: right espinoza on for 12 hours and off for 12 hours predniSONE (DELTASONE) 20 mg tablet Take 2 tablets by mouth once daily for 5 days. blood sugar diagnostic ([employer]CH ULTRA TEST) test strip Test blood sugar(s) 2 times daily. (Patient taking differently: 1 Each. Test blood sugar(s) 2 times daily. ) FAMILY HISTORY Problem Relation Age of Onset Cancer Mother bone, Cancer Sister bone, Heart Sister pacemaker, valve repair Stroke Father Stroke Sister Stroke Brother age 75 Social History Tobacco Use Smoking status: Never Smokeless tobacco: Never Vaping Use Vaping Use: Never used Substance Use Topics Alcohol use: No Drug use: No ASSESSMENT/PLAN: 1. Pain of right lower extremity - ICD9: 729.5, ICD10: M79.604 - CONSULT TO ORTHOPAEDICS Prednisone daily for 5 days. Lidoderm patches for pain instructed to rest it give it a few more days and follow-up if signs and symptoms do not seem to be getting any better. She was okay with this care plan. Carissa Lee APRN.JERRY documented in this encounter [facility] 08-09-2021 History of Present illness Narrative This note was created using [employer]. Subjective Val Erickson is a 76 year old female. Her glucose was staying high so 3 months ago, she started ramping up her Lantus from 35 units to 40 units. She stopped at 40 units when her glucoses were better. She switched her shots to bedtime. She just had an EPO shot today so this may have elevated her BP. She had no EPO shot for several months. Review of Systems Constitutional: Negative for chills, fever and unexpected weight change. Respiratory: Negative for cough, chest tightness and shortness of breath. Cardiovascular: Negative for chest pain, palpitations and leg swelling. Gastrointestinal: Negative. Musculoskeletal: Negative for gait problem. ACTIVE PROBLEM LIST Essential Hypertension Generalized Osteoarthritis [...] Capsule Opacification Ddd (Degenerative Disc Disease), Thoracolumbar Social History Tobacco Use Smoking status: Never Smoker Smokeless tobacco: Never Used Vaping Use Vaping Use: Never used Substance Use Topics Alcohol use: No Drug use: No Current Outpatient Medications Medication Sig losartan (COZAAR) 50 mg tablet Take 1 tablet by mouth once daily. glimepiride (AMARYL) 4 mg tablet TAKE 1 TABLET DAILY WITH BREAKFAST FOR DIABETES pioglitazone (ACTOS) 30 mg tablet Take 1 tablet by mouth every other day. insulin glargine (LANTUS SOLOSTAR U-100 INSULIN) 100 unit/mL (3 mL) Inject 35 Units subcutaneously every morning. (Patient taking differently: Inject 40 Units subcutaneously every morning. ) insulin glargine (LANTUS SOLOSTAR U-100 INSULIN) 100 unit/mL (3 mL) Inject 35 Units subcutaneously once daily. simvastatin (ZOCOR) 40 mg tablet Take 1 tablet by mouth daily at bedtime. For cholesterol. calcitriol (ROCALTROL) 0.5 mcg capsule Take 1 capsule by mouth once daily. Vit C-Vit F-Vbwvvf-LpOv-Lutein (PRESERVISION LUTEIN) 226 mg-200 unit -5 mg-0.8 mg cap Take 1 capsule by mouth once daily. gabapentin (NEURONTIN) 300 mg capsule Take 1 capsule by mouth daily at bedtime for 180 days. clotrimazole (LOTRIMIN, CLOTRIM) 1 % cream Insulin [place], Disposable, 29 gauge x 1/2 ndle Use once daily as directed. Dx E11.29 COMPOUNDED PRESCRIPTION Take 1 tablet by mouth twice daily. Plexus Bio-5 (Probiotic) blood sugar diagnostic (ONETOUCH ULTRA TEST) test strip Test blood sugar(s) 2 times daily. (Patient taking differently: 1 Each. Test blood sugar(s) 2 times daily. ) epoetin zari (PROCRIT) 10,000 unit/mL INJECTION injection Inject 10,000 Units subcutaneously q 4 WEEKS. 12,000 Units every two weeks. Lancets (FREESTYLE LANCETS) Misc Misc Test twice daily 250.02 No current facility-administered medications for this visit. Objective BP 131/71 (BP Site: Right Arm, BP Position: Sitting, BP Cuff Size: Large Adult) Pulse 100 Temp 36.4 C (97.5 F) (Temporal Artery) Resp 16 Wt 123.8 kg (273 lb) BMI 46.86 kg/m Physical Exam Constitutional: Appearance: She is obese. She is not ill-appearing. Cardiovascular: Rate and Rhythm: Tachycardia present. Heart sounds: No murmur heard. No gallop. Pulmonary: Breath sounds: No wheezing or rales. Abdominal: Tenderness: There is no abdominal tenderness. Musculoskeletal: Right lower leg: No edema. Left lower leg: No edema. Neurological: General: No focal deficit present. Mental Status: She is alert. Comments: Ambulated down hallway with no assistance. Using wheelchair for longer distance. Hemoglobin A1C Date Value 03/22/2021 8.3 05/19/2018 6.5 % 02/18/2012 6.4 % Hemoglobin A1C (POCT) (%) Date Value 08/09/2021 7.6 11/17/2020 7.7 ) Assessment and Plan 1. Essential hypertension - ICD9: 401.9, ICD10: I10 (primary diagnosis) - fair control - Continue current medication(s) - Reviewed risks of HTN and principles of treatment - Goal of BP <130/80 2. Type 2 diabetes mellitus with stage 4 chronic kidney disease, with long-term current use of insulin (HCC) - ICD9: 250.40, 585.4, V58.67, ICD10: E11.22, N18.4, Z79.4 improved control - Continue current medications - LANTUS SOLOSTAR U-100 INSULIN 100 UNIT/ML (3 ML) SUBCUTANEOUS PEN - HEMOGLOBIN A1C (POC) - HGB A1C 3. DDD (degenerative disc disease), thoracolumbar - ICD9: 722.51, ICD10: M51.35 Stable. She only used this as needed. - GABAPENTIN 300 MG CAPSULE 4. Mixed hyperlipidemia - ICD9: 272.2, ICD10: E78.2 - to be determined upon return of lab results - Continue current medication. - LIPID PANEL BASIC Neel Turpin MD documented in this encounter [facility] 07-06-2021 Miscellaneous Notes Message left to pt with info. No lab orders needed. I can do a fingerstick A1c. Patient calling she has appt scheduled for 08/09/2021 with PCP. She goes to [facility] every month and is scheduled for next Saturday to go. Patient is asking if she needs to have lab work done prior to appt? Patient said if so she wants orders mailed to her home address please, which is correct in the computer. Patient said to leave message on her machine for her. Last labs were done 03/22/2021 at [facility]. Pending orders if wanted, needs diagnosis. Aware PCP is out of office today. Please advise documented in this encounter [facility] 10-24-2017 History of Past i llness Narrative Problem Noted Date Resolved Date Controlled diabetes [...] of this encounter (statuses as of 07/06/2021) [facility] History of Past illness Narrative* Problem [...] of this encounter (statuses as of 08/09/2021) [facility] History of Past illness Narrative* Problem [...] of this encounter (statuses as of 12/04/2021) [facility] History of Past illness Narrative* Problem [...] of this encounter (statuses as of 12/20/2021) [facility] History of Past illness Narrative* Problem [...] of this encounter (statuses as of 12/22/2021) [facility] History of Past illness Narrative* Problem [...] of this encounter (statuses as of 12/25/2021) [facility] of Past illness Narrative* Problem [...] of this encounter (statuses as of 12/29/2021) [facility] of Past illness Narrative* Problem [...] of this encounter (statuses as of 12/29/2021) [facility] History of Past illness Narrative* Problem [...] of this encounter (statuses as of 12/29/2021) [facility] of Past illness Narrative* Problem [...] of this encounter (statuses as of 02/20/2022) [facility] History of Past illness Narrative* Problem [...] of this encounter (statuses as of 02/22/2022) [facility] of Past illness Narrative* Problem [...] of this encounter (statuses as of 02/23/2022) [facility] History of Past illness Narrative* Problem [...] of this encounter (statuses as of 02/26/2022) [facility] History of Past illness Narrative* Problem [...] of this encounter (statuses as of 03/22/2022) [facility] of Past illness Narrative* Problem [...] of this encounter (statuses as of 04/27/2022) [facility] of [facility] illness Narrative* Problem [...] of this encounter (statuses as of 08/15/2022) [facility] Narrative* Problem [...] of this encounter (statuses as of 08/21/2022) [facility] Narrative* Problem [...] of this encounter (statuses as of 11/22/2022) [facility] Narrative* Problem [...] of this encounter (statuses as of 11/29/2022) [facility] Narrative* Problem [...] of this encounter (statuses as of 12/07/2022) [facility] Narrative* Problem [...] of this encounter (statuses as of 01/04/2023) [facility] Narrative* Problem [...] of this encounter (statuses as of 02/11/2023) [facility] Narrative* Problem [...] of this encounter (statuses as of 02/14/2023) [facility] Narrative* Problem [...] of this encounter (statuses as of 02/14/2023) [facility] Narrative* Problem [...] of this encounter (statuses as of 04/23/2023) [facility] Narrative* Problem [...] of this encounter (statuses as of 04/26/2023) [facility] Narrative* Problem [...] of this encounter (statuses as of 05/01/2023) [facility] Narrative* Problem [...] of this encounter (statuses as of 05/03/2023) [facility] Narrative* Problem [...] of this encounter (statuses as of 05/08/2023) [facility] Narrative* Problem [...] of this encounter (statuses as of 05/15/2023) [facility] Narrative* Problem [...] of this encounter (statuses as of 05/22/2023) [facility] Narrative* Problem [...] as of this encounter (statuses as of 06/05/2023) [facility] Narrative* Problem [...] as of this encounter (statuses as of 06/06/2023) [facility] Narrative* Problem [...] as of this encounter (statuses as of 06/10/2023) [facility] Narrative* Problem [...] as of this encounter (statuses as of 06/11/2023) [facility] Narrative* Problem [...] as of this encounter (statuses as of 06/18/2023) [facility] Narrative* Problem [...] as of this encounter (statuses as of 06/27/2023) [facility] Narrative* Problem [...] as of this encounter (statuses as of 07/04/2023) [facility] History of Past illness Narrative* Problem [...] as of this encounter (statuses as of 07/04/2023) [facility] complaint Narrative - Reported* VAL ERICKSON is here for an initial evaluation. * Reason for Visit: SOB. * Appointment requested by: Dr. Yulia Antoine. -Pulmonary Medicine-[address] Work Phone: Evaluation noteNo assessment information available [facility] Work Phone: Evaluation note* Diagnosis Essential hypertension- Primary Unspecified essential hypertension Type 2 diabetes mellitus with stage 4 chronic kidney disease, with long-term current use of insulin (HCC) DDD (degenerative disc disease), thoracolumbar Degeneration of thoracic or thoracolumbar intervertebral disc Mixed hyperlipidemia [facility] Diagnosis Pain of right lower extremity- Primary documented in this encounter [facility] note* Diagnosis Acute leg pain, right- Primary Depressive disorder Depressive disorder, not elsewhere classified DDD (degenerative disc disease), thoracolumbar Degeneration of thoracic or thoracolumbar intervertebral disc [facility] Diagnosis Onset Date Resolution Status Acute pain of right lower extremity acute Hypoglycemia acute Intractable neuropathic pain of right lower extremity acute History of chronic hypertension chronic [facility] Work Phone: Evaluation note* Diagnosis Right leg pain- Primary Pain in limb Elevated d-dimer Abnormal coagulation profile [facility] Diagnosis Onset Date Resolution Status Acute pain of right lower extremity acute Intractable neuropathic pain of right lower extremity acute CKD (chronic kidney disease), stage IV chronic DM2 (diabetes mellitus, type 2) chronic History of chronic hypertension chronic HTN (hypertension) chronic Hypoglycemia resolved Adult failure to thrive acut e Anemia acute Back pain acute Depression acute Intractable neuropathic pain of right lower extremity acute CKD (chronic kidney disease), stage IV chronic Diabetes mellitus chronic [facility] Work Phone: Evaluation note* Musculoskeletal: Moves extremities [...] no acute distress, cooperativeNeurological: Awake, alert, oriented [id number]: Mild edema of the lower extremities belowthe knees, improving, bilateral Geovanni wraps onPsychological: Appropriate mood and behavior [facility] Diagnosis CKD (chronic kidney disease) stage 4, GFR 15-29 ml/min ([facility])- Primary Chronic kidney disease, Stage IV (severe) DDD (degenerative disc disease), thoracolumbar Degeneration of thoracic or thoracolumbar intervertebral disc Type 2 diabetes mellitus with stage 4 chronic kidney disease, with long-term current use of insulin ([facility]) Anemia due to chronic kidney disease, unspecified CKD stage Essential hypertension Unspecified essential hypertension Mixed hyperlipidemia Hypertensive heart disease with acute on chronic systolic congestive heart failure ([facility]) Hypoxemia [facility] Diagnosis DDD (degenerative disc disease), thoracolumbar- Primary Degeneration of thoracic or thoracolumbar intervertebral disc Other hyperlipidemia Depressive disorder Depressive disorder, not elsewhere classified Type 2 diabetes mellitus with stage 4 chronic kidney disease, with long-term current use of insulin ([facility]) Hyperparathyroidism, secondary renal (HCC) Secondary hyperparathyroidism (of renal origin) Obesity, Class III, BMI 40-49.9 (morbid obesity) ([facility]) Morbid obesity [facility] Diagnosis Type 2 diabetes mellitus with stage 4 chronic kidney disease, with long-term current use of insulin ([facility])- Primary Hypertensive heart disease with acute on chronic systolic congestive heart failure (HCC) Depressive disorder Depressive disorder, not elsewhere classified DDD (degenerative disc disease), thoracolumbar Degeneration of thoracic or thoracolumbar intervertebral disc [facility] Diagnosis Patient left without being seen- Primary Surgical or other procedure not carried out because of patient's decision [facility] Diagnosis Chronic combined systolic and diastolic CHF, NYHA class 3 ([facility])- Primary Dyspnea on exertion Other dyspnea and respiratory abnormality documented in this encounter [facility] Work Phone: Evaluation note* Diagnosis Type 2 diabetes mellitus with stage 4 chronic kidney disease, with long-term current use of insulin (HCC)- Primary DDD (degenerative disc disease), thoracolumbar Degeneration of thoracic or thoracolumbar intervertebral disc Depressive disorder Depressive disorder, not elsewhere classified Encounter for immunization Need for other specified prophylactic vaccination against single bacterial disease [facility] Diagnosis Chronic combined systolic (congestive) and diastolic (congestive) heart failure (CMS/HCC) Hypertensive heart and chronic kidney disease with heart failure and stage 1 through stage 4 chronic kidney disease, or unspecified chronic kidney disease ([facility]/HCC) Chronic systolic (congestive) heart failure ([facility]/HCC) Left bundle-branch block, unspecified Compression of vein Other pericardial effusion (noninflammatory) Chronic kidney disease, stage 3 unspecified ([facility]) Type 2 diabetes mellitus with diabetic chronic kidney disease ([facility]/HCC) Hyperlipidemia, unspecified Type 2 diabetes mellitus with diabetic neuropathy, unspecified ([facility]/HCC) Morbid (severe) obesity due to excess calories ([facility]) Body mass index (BMI) 45.0-49.9, adult ([facility]) residential (current) use of insulin ([facility]) Heart failure, unspecified ([facility]) Heart failure, unspecified Procedure and treatment not carried out for other reasons documented in this encounter [facility] Work Phone: Evaluation note* Diagnosis Type 2 diabetes mellitus with stage 4 chronic kidney disease, with long-term current use of insulin ([facility]) [facility] Diagnosis Type 2 diabetes mellitus with stage 4 chronic kidney disease, with long-term current use of insulin ([facility])- Primary [facility] Diagnosis Obstructive airway disease ([facility]/HCC)- Primary Chronic airway obstruction, not elsewhere classified Dyspnea on exertion Other dyspnea and respiratory abnormality Nocturnal hypoxemia due to obesity documented in this encounter [facility] Work Phone: Evaluation note* Diagnosis ICD (implantable cardioverter-defibrillator) in place Paroxysmal ventricular tachycardia (CMS/HCC) Paroxysmal ventricular tachycardia documented in this encounter [facility] Work Phone: Evaluation note* Diagnosis Type 2 diabetes mellitus with stage 4 chronic kidney disease, with long-term current use of insulin (HCC)- Primary Hypertensive heart disease with acute on chronic systolic congestive heart failure (HCC) CKD (chronic kidney disease) stage 4, GFR 15-29 ml/min (HCC) Chronic kidney disease, Stage IV (severe) Hyperparathyroidism, secondary renal (HCC) Secondary hyperparathyroidism (of renal origin) Essential hypertension Unspecified essential hypertension Obesity, Class III, BMI 40-49.9 (morbid obesity) ([facility]) Morbid obesity [facility] Diagnosis Type 2 diabetes mellitus with stage 4 chronic kidney disease, with long-term current use of insulin ([facility])- Primary [facility]* Diagnosis ICD (implantable cardioverter-defibrillator) in place Paroxysmal ventricular tachycardia (CMS/HCC) Paroxysmal ventricular tachycardia documented in this encounter [facility] Work Phone: Evaluation note* Diagnosis Type 2 diabetes mellitus with stage 4 chronic kidney disease, with long-term current use of insulin (HCC)- Primary [facility]* Diagnosis Type 2 diabetes mellitus without retinopathy ([facility])- Primary Type II or unspecified type diabetes mellitus without mention of complication, not stated as uncontrolled Nonexudative age-related macular degeneration, right eye, 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, left eye, advanced atrophic with subfoveal involvement Pseudophakia, both eyes Lens replaced by other means Myopia, bilateral Myopia Regular astigmatism, bilateral [facility] Diagnosis Type 2 diabetes mellitus with stage 4 chronic kidney disease, with long-term current use of insulin (HCC)- Primary [facility] Diagnosis ICD (implantable cardioverter-defibrillator) in place Paroxysmal ventricular tachycardia (Multi) Paroxysmal ventricular tachycardia documented in this encounter [facility] Work Phone: Evaluation note* Diagnosis Type 2 diabetes mellitus with stage 4 chronic kidney disease, with long-term current use of insulin (HCC)- Primary [facility] Diagnosis Medicare annual wellness visit, subsequent- Primary Routine general medical examination at a health care facility Depressive disorder Depressive disorder, not elsewhere classified Right hip pain Pain in joint, pelvic region and thigh Fall on hard surface Type 2 diabetes mellitus with stage 4 chronic kidney disease, with long-term current use of insulin (HCC) DDD (degenerative disc disease), thoracolumbar Degeneration of thoracic or thoracolumbar intervertebral disc Right hip pain Pain in joint, pelvic region and thigh Fall on hard surface documented in this encounter [facility] note* Diagnosis Type 2 diabetes mellitus with stage 4 chronic kidney disease, with long-term current use of insulin (HCC) documented in this encounter [facility] note* Diagnosis Type 2 diabetes mellitus with stage 4 chronic kidney disease, with long-term current use of insulin (HCC)- Primary Essential hypertension Unspecified essential hypertension Dysuria Obesity, Class III, BMI 40-49.9 (morbid obesity) (HCC) Morbid obesity Anemia due to chronic kidney disease, unspecified CKD stage Right hip pain Pain in joint, pelvic region and thigh Fall on hard surface documented in this encounter [facility] note* Diagnosis Type 2 diabetes mellitus with stage 4 chronic kidney disease, with long-term current use of insulin (HCC)- Primary Essential hypertension Unspecified essential hypertension Dysuria Obesity, Class III, BMI 40-49.9 (morbid obesity) (HCC) Morbid obesity Anemia due to chronic kidney disease, unspecified CKD stage Acute leg pain, right documented in this encounter [facility] note* Diagnosis Type 2 diabetes mellitus with stage 4 chronic kidney disease, with long-term current use of insulin (HCC)- Primary Essential hypertension Unspecified essential hypertension Dysuria Obesity, Class III, BMI 40-49.9 (morbid obesity) (HCC) Morbid obesity Anemia due to chronic kidney disease, unspecified CKD stage Type 2 diabetes mellitus with stage 4 chronic kidney disease, with long-term current use of insulin (HCC)- Primary documented in this encounter [facility] note* Diagnosis ICD (implantable cardioverter-defibrillator) in place Paroxysmal ventricular tachycardia (Multi) Paroxysmal ventricular tachycardia documented in this encounter [facility] Work Phone: Evaluation note* Diagnosis Chest pain- Primary Unspecified chest pain Chest pain, unspecified type Chest pain due to myocardial ischemia, unspecified ischemic chest pain type Type 2 diabetes mellitus with hyperglycemia, with long-term current use of insulin (Multi) Essential hypertension Unspecified essential hypertension Acute coronary microvascular dysfunction (Multi) Chest pain on breathing Painful respiration Chest pain, unspecified type Localized edema Edema Shortness of breath Chest pain, unspecified type documented in this encounter [facility] Work Phone: Evaluation note* Diagnosis Congestive heart failure, unspecified HF chronicity, unspecified heart failure type (Multi)- Primary documented in this encounter [facility] Work Phone: Evaluation note* Diagnosis History of chronic obstructive airway disease- Primary Nocturnal hypoxemia Dyspnea on exertion Other dyspnea and respiratory abnormality Morbid obesity (Multi) Morbid obesity documented in this encounter [facility] Work Phone: Evaluation note* Diagnosis Type 2 diabetes mellitus with stage 4 chronic kidney disease, with long-term current use of insulin (HCC)- Primary Essential hypertension Unspecified essential hypertension Dysuria Obesity, Class III, BMI 40-49.9 (morbid obesity) (HCC) Morbid obesity Anemia due to chronic kidney disease, unspecified CKD stage Type 2 diabetes mellitus with stage 4 chronic kidney disease, with long-term current use of insulin ([facility])- [facility] Diagnosis Congestive heart failure, unspecified HF chronicity, unspecified heart failure type- Primary Hypoxemia documented in this encounter [facility] Work Phone: Evaluation note* Diagnosis Moderate COPD (chronic obstructive pulmonary disease) (Multi)- Primary Dyspnea on exertion Other dyspnea and respiratory abnormality Morbid obesity (Multi) Morbid obesity documented in this encounter [facility] Work Phone: Evaluation note* Diagnosis Type 2 diabetes mellitus with stage 4 chronic kidney disease, with long-term current use of insulin (HCC)- Primary Essential hypertension Unspecified essential hypertension Dysuria Obesity, Class III, BMI 40-49.9 (morbid obesity) (HCC) Morbid obesity Anemia due to chronic kidney disease, unspecified CKD stage Type 2 diabetes mellitus with stage 4 chronic kidney disease, with long-term current use of insulin (HCC)- Primary Urinary frequency DDD (degenerative disc disease), thoracolumbar Degeneration of thoracic or thoracolumbar intervertebral disc Other hyperlipidemia Hypertensive heart disease with acute on chronic systolic congestive heart failure (HCC) Hyperparathyroidism, secondary renal (HCC) Secondary hyperparathyroidism (of renal origin) Obesity, Class III, BMI 40-49.9 (morbid obesity) (HCC) Morbid obesity Encounter for immunization Need for other specified prophylactic vaccination against single bacterial disease [facility] Diagnosis Type 2 diabetes mellitus with stage 4 chronic kidney disease, with long-term current use of insulin (HCC)- Primary Essential hypertension Unspecified essential hypertension Dysuria Obesity, Class III, BMI 40-49.9 (morbid obesity) (HCC) Morbid obesity Anemia due to chronic kidney disease, unspecified CKD stage Type 2 diabetes mellitus with stage 4 chronic kidney disease, with long-term current use of insulin ([facility])- Primary [facility] Diagnosis ICD (implantable cardioverter-defibrillator) in place Paroxysmal ventricular tachycardia (Multi) Paroxysmal ventricular tachycardia documented in this encounter [facility] Work Phone: Evaluation note* Diagnosis Type 2 diabetes mellitus with stage 4 chronic kidney disease, with long-term current use of insulin ([facility])- Primary Essential hypertension Unspecified essential hypertension Dysuria Obesity, Class III, BMI 40-49.9 (morbid obesity) Morbid obesity Anemia due to chronic kidney disease, unspecified CKD stage Adjustment disorder with anxiety- Primary Depressive disorder Depressive disorder, not elsewhere classified Type 2 diabetes mellitus with stage 4 chronic kidney disease, with long-term current use of insulin ([facility]) Fracture of unspecified part of neck of right femur, initial encounter for closed fracture ([facility]) Frequent falls Personal history of fall Urinary tract infection without hematuria, site unspecified Pneumonia due to infectious organism, unspecified laterality, unspecified part of lung [facility] Diagnosis ICD (implantable cardioverter-defibrillator) in place Paroxysmal ventricular tachycardia documented in this encounter [facility] Work Phone: Evaluation note* Diagnosis Type 2 diabetes mellitus with stage 4 chronic kidney disease, with long-term current use of insulin ([facility])- Primary Essential hypertension Unspecified essential hypertension Dysuria Obesity, Class III, BMI 40-49.9 (morbid obesity) Morbid obesity Anemia due to chronic kidney disease, unspecified CKD stage Type 2 diabetes mellitus with stage 4 chronic kidney disease, with long-term current use of insulin ([facility])- Primary documented in this encounter [facility] note* Diagnosis Type 2 diabetes mellitus with stage 4 chronic kidney disease, with long-term current use of insulin (HCC)- Primary Essential hypertension Unspecified essential hypertension Dysuria Obesity, Class III, BMI 40-49.9 (morbid obesity) Morbid obesity Anemia due to chronic kidney disease, unspecified CKD stage Chronic combined systolic and diastolic heart failure (HCC)- Primary Chronic combined systolic and diastolic heart failure [facility] Diagnosis Type 2 diabetes mellitus with stage 4 chronic kidney disease, with long-term current use of insulin (HCC)- Primary Essential hypertension Unspecified essential hypertension Dysuria Obesity, Class III, BMI 40-49.9 (morbid obesity) Morbid obesity Anemia due to chronic kidney disease, unspecified CKD stage Bilateral lower extremity edema- Primary Edema Chronic combined systolic and diastolic heart failure (HCC) Chronic combined systolic and diastolic heart failure Chronic respiratory failure with hypoxia (HCC) Chronic respiratory failure [facility] Diagnosis Type 2 diabetes mellitus with stage 4 chronic kidney disease, with long-term current use of insulin (HCC)- Primary Essential hypertension Unspecified essential hypertension Dysuria Obesity, Class III, BMI 40-49.9 (morbid obesity) Morbid obesity Anemia due to chronic kidney disease, unspecified CKD stage Type 2 diabetes mellitus with stage 4 chronic kidney disease, with long-term current use of insulin (HCC)- Primary [facility] Diagnosis Type 2 diabetes mellitus with stage 4 chronic kidney disease, with long-term current use of insulin (HCC)- Primary Essential hypertension Unspecified essential hypertension Dysuria Obesity, Class III, BMI 40-49.9 (morbid obesity) (HCC) Morbid obesity Anemia due to chronic kidney disease, unspecified CKD stage Type 2 diabetes mellitus with stage 4 chronic kidney disease, with long-term current use of insulin (HCC)- Primary [facility] Diagnosis Type 2 diabetes mellitus with stage 4 chronic kidney disease, with long-term current use of insulin (HCC)- Primary Essential hypertension Unspecified essential hypertension Dysuria Obesity, Class III, BMI 40-49.9 (morbid obesity) (HCC) Morbid obesity Anemia due to chronic kidney disease, unspecified CKD stage Medicare annual wellness visit, subsequent- Primary Routine general medical examination at a health care facility DDD (degenerative disc disease), thoracolumbar Degeneration of thoracic or thoracolumbar intervertebral disc Type 2 diabetes mellitus with stage 4 chronic kidney disease, with long-term current use of insulin ([facility]) Encounter for screening examination for other mental health and behavioral disorders Chronic obstructive pulmonary disease, unspecified COPD type ([facility]) Essential hypertension Unspecified essential hypertension Mixed hyperlipidemia Obesity, Class III, BMI 40-49.9 (morbid obesity) (HCC) Morbid obesity Chronic combined systolic and diastolic heart failure (HCC) Chronic combined systolic and diastolic heart failure Depressive disorder Depressive disorder, not elsewhere classified [facility]* Patient was seen today on a follow-up visit. She was accompanied by her son Rd. I reviewed her chest x-ray which on the lateral view did show what appears to be chronic vertebral compression fracture of the lower lumbar. The patient denies having any acute back pains. I reviewed her pulmonary function testing which does show evidence of some obstructive airway disease that improved post bronchodilator. Her gas transfer was reduced at 66%. [...] part is due to her obesity. -Pulmonary Medicine-[place] [address] DO Work Phone: History of Present illness Narrative* Patient was seen today on a follow-up visit. She was accompanied by her son Rd. I reviewed her chest x-ray which on [...] in part is due to her obesity. [facility] [place] [address] DO Work Phone: History of Present illness [...] cough or sputum production and no wheezing. [place] [address] DO Work Phone: History of Present illness [...] cough or sputum production and no wheezing. [place] [address] DO Work Phone: History of Present illness [...] cough or sputum production and no wheezing. [facility]-[place] [address] DO Work Phone: History of Present illness [...] She is in need of a pacemaker [id number] Work Phone: reason for referral (narrative)* Diagnostic Procedure Only (Routine) - Pending Review Specialty Diagnoses / Procedures Referred By Jorje bay Referred To Contact XR IMAGING Diagnoses Acute leg pain, right Procedures XR TIBIA FIBULA 2V AP/LAT RIGHT RADIOLOGIC EXAMINATION TIBIA & FIBULA 2 VIEWS Neel Turpin MD [address] [place] [address] Xr Imaging Referral ID Status Reason Start Date Expiration Date Visits Requested Visits Authorized [id number] Pending Review Auto-Generat ed Referral 12/18/2021 01/17/2023 1 1 * Diagnostic Procedure Only (Routine) - Pending Review Specialty Diagnoses / Procedures Referred By Jorje bay Referred To Contact XR IMAGING Diagnoses Acute leg pain, right Procedures XR KNEE GENERAL 4V AP BOTH/PA BOTH/LAT/MERC RIGHT RADIOLOGIC EXAM KNEE COMPLETE 4/MORE VIEWS Neel Turpin MD [address] [place] [address] Xr Imaging Referral ID Status Reason Start Date Expiration Date Visits Requested Visits Authorized [id number] Pending Review Auto-Generat ed Referral 12/18/2021 01/17/2023 1 1 [facility] Outpatient Procedure (Urgent) - Closed Specialty Diagnoses / Procedures Referred By Contac t Referred To Contact [facility] Diagnoses Right leg pain Elevated d-dimer Procedures US LEG VEIN DVT UNL VAS LAB DUP-SCAN XTR VEINS UNILATERAL/LIMITED STUDY Kacy Berumen APRN.[employer] [address] [place] [address] [facility] [address] [place] [address] Referral ID Status Reason Start Date Expiration Date V isits Requested Visits Authorized [id number] Closed Auto-Generate d Referral 12/19/2021 12/19/2022 1 1 [facility] for referral (narrative)* Diagnostic Procedure Only (Urgent) - Closed Specialty Diagnoses / Procedures Referred By Contac t Referred To Contact XR IMAGING Diagnoses Right hip pain Fall on hard surface Procedures XR HIP GENERAL 3V PELV/AP/LAT RIGHT RADEX HIP UNILATERAL WITH PELVIS 2-3 VIEWS Kacy Mary VISUAL DISPLAY MANAGER.[employer] [address] [address] [place] [address] [place] [address] Referral ID Status Reason Start Date Expiration Date V isits Requested Visits Authorized [id number] Closed Auto-Generate d Referral 09/23/2023 10/22/2024 1 1 [facility] for referral (narrative)* Diagnostic Procedure Only (Urgent) - Closed Specialty Diagnoses / Procedures Referred By Contac t Referred To Contact XR IMAGING Diagnoses Right hip pain Fall on hard surface Procedures XR HIP GENERAL 3V PELV/AP/LAT RIGHT RADEX HIP UNILATERAL WITH PELVIS 2-3 VIEWS Kacy Mary VISUAL DISPLAY MANAGER.[employer] [address] [address] [place] [address] [place] [address] Referral ID Status Reason Start Date Expiration Date V isits Requested Visits Authorized [id number] Closed Auto-Generate d Referral 09/23/2023 10/22/2024 1 1 [facility] for referral (narrative)* Diagnostic Procedure Only (Routine) - Closed Specialty Diagnoses / Procedures Referred By Contac t Referred To Contact XR IMAGING Diagnoses Acute leg pain, right Procedures XR TIBIA FIBULA 2V AP/LAT RIGHT RADIOLOGIC EXAMINATION TIBIA & FIBULA 2 VIEWS Neel Turpin MD [address] [place] [address] [place] [address] Referral ID Status Reason Start Date Expiration Date V isits Requested Visits Authorized [id number] Closed Auto-Generate d Referral 12/18/2021 01/17/2023 1 1 * Diagnostic Procedure Only (Routine) - Closed Specialty Diagnoses / Procedures Referred By Contac t Referred To Contact XR IMAGING Diagnoses Acute leg pain, right Procedures XR KNEE GENERAL 4V AP BOTH/PA BOTH/LAT/MERC RIGHT RADIOLOGIC EXAM KNEE COMPLETE 4/MORE VIEWS Neel Turpin MD [address] [place] [address] [place] [address] Referral ID Status Reason Start Date Expiration Date V isits Requested Visits Authorized [id number] Closed Auto-Generate d Referral 12/18/2021 01/17/2023 1 1 [facility] for visit Narrative* Diagnostic Procedure Only (Urgent) - Closed Specialty Diagnoses / Procedures Referred By Contac t Referred To Contact XR IMAGING Diagnoses Right hip pain Fall on hard surface Procedures XR HIP GENERAL 3V PELV/AP/LAT RIGHT RADEX HIP UNILATERAL WITH PELVIS 2-3 VIEWS Kacy Mary, VISUAL DISPLAY MANAGER.[employer] [address] [address] [place] [address] [place] [address] Referral ID Status Reason Start Date Expiration Date V isits Requested Visits Authorized [id number] Closed Auto-Generate d Referral 09/23/2023 10/22/2024 1 1 [facility] for visit Narrative* Diagnostic Procedure Only (Routine) - Closed Specialty Diagnoses / Procedures Referred By Contac t Referred To Contact XR IMAGING Diagnoses Acute leg pain, right Procedures XR TIBIA FIBULA 2V AP/LAT RIGHT RADIOLOGIC EXAMINATION TIBIA & FIBULA 2 VIEWS Neel Turpin MD [address] [facility] [place] [address] [place] [address] Referral ID Status Reason Start Date Expiration Date V isits Requested Visits Authorized [id number] Closed Auto-Generate d Referral 12/18/2021 01/17/2023 1 1 [facility] for visit Narrative* Imaging (Routine) - Authorized Specialty Diagnoses / Procedures Referred By Jorje t Referred To Contact Cardiology Diagnoses ICD (implantable cardioverter-defibrillator) in place Paroxysmal ventricular tachycardia (Multi) Procedures Cardiac Device Check - Remote Claus Browne MD Phone: tel: fax: [place] [address] [place] [address] Phone: tel: fax: Referral ID Status Reason Start Date Expiration Date Visits Requested Visits Authorized [id number] Authorized Perform Procedure 07/17/2023 07/16/[address] [place] [address] Work Phone: [facility] for visit Narrative* Imaging (Routine) - Authorized Specialty Diagnoses / Procedures Referred By Jorje t Referred To Contact Cardiology Diagnoses ICD (implantable cardioverter-defibrillator) in place Paroxysmal ventricular tachycardia Procedures Cardiac Device Check - Remote Claus Browne MD Phone: tel: fax: [facility] [place] [address] Phone: tel: fax: Referral ID Status Reason Start Date Expiration Date Visits Requested Visits Authorized [id number] Authorized Perform Procedure 07/17/2023 07/16/[address] [place] [address] Work Phone: Summary Purpose Family History No Family History Records Found Relationship Condition Age at Onset Recorded Date/T federico Unknown Family History?- Unknown January 6:12pm Family History?- Unknown January 272017 6:00pm Relationship Condition Age at Onset Recorded Date/T federico Not Specified Malignant neoplasm of prostate Unknown Cardiac disease Unknown sister Malignant neoplasm of breast Unknown Unknown Family Member Name Dates Details Family [...] Status:Active Advance Directives No Advanced Directives Records Found Advance Directive Response Recorded Date/ Time Advance Directives Yes February 8th, 2017 12:12pm Living Will Yes February 03, 018 10:31am Power of Marketing Production Manager Yes February 03, 2018 10:31am Advance Directive Response Recorded Date/ Time Name of Medical Power of Marketing Production Manager Rd [address] December 21, 2021 4:02pm Advance Directives Yes April 25, 2016 12:12pm Living Will Yes December 21 4:02pm Power of Marketing Production Manager Yes December 21 022 4:02pm Advance Directive Response Recorded Date/ Time Name of Medical Power of Marketing Production Manager Rd [address] December 21, 2021 4:02pm Advance Directives Yes April 25, 2016 12:12pm Living Will No December 25 6:56pm Power of Marketing Production Manager No December 25, 2021 6:56pm Advance Directive Response Recorded Date/ Time Name of Medical Power of Marketing Production Manager Rd [place]on December 21, 2021 3:02pm Advance Directives Yes April 25, 2016 11:12am Living Will No December 25 5:56pm Power of Marketing Production Manager No December 25, 2021 5:56pm Advance Directive Response Recorded Date/ Time Advance Directives Yes April 25, 2016 11:12am Living Will No December 25 5:56pm Power of Marketing Production Manager No December 25, 2021 5:56pm Advance Directive Response Recorded Date/ Time Advance Directives Yes April 25, 2016 12:12pm Living Will No December 25 6:56pm Power of Marketing Production Manager No December 25, 2021 6:56pm Date Activated Date Inactivated Comments 09/09/2023 12:07 PM Question Answer Comments Plan of Care: Code Status Discussion Not Compl eted Decision Maker: Provider Rationale: Patient condition does not warra nt discussion Date Activated Date Inactivated Comments 09/09/2023 9:21 AM 09/09/2023 12:07 PM Question Answer Comments Plan of Care: Code Status Discussion Completed Decision Maker: Patient Date Activated Date Inactivated Comments 09/09/2023 12:07 PM Question Answer Comments Plan of Care: Code Status Discussion Not Compl eted Decision Maker: Provider Rationale: Patient condition does not warra nt discussion Date Activated Date Inactivated Comments 09/09/2023 9:21 AM 09/09/2023 12:07 PM Question Answer Comments Plan of Care: Code Status Discussion Completed Decision Maker: Patient Chief Complaint and Reason for Visit Chief Complaint port draw port draw port draw port draw port draw Chief Complaint port draw port draw port draw port draw Chief Complaint port draw port draw port draw port draw INTRACTABLE LEG PAIN Reason for Visit Acute pain of right lower extremity Hypoglycemia Intractable neuropathic pain of right lower extremity History of chronic hypertension Chief Complaint port draw port draw port draw port draw INTRACTABLE LEG PAIN INTRACTABLE LEG PAIN INTRACTABLE LEG PAIN FAILURE TO THRIVE, BACK PAIN FAILURE TO THRIVE, BACK PAIN FAILURE TO THRIVE, BACK PAIN FAILURE TO THRIVE, BACK PAIN port draw Reason for Visit Acute pain of right lower extremity Intractable neuropathic pain of right lower extremity CKD (chronic kidney disease), stage IV DM2 (diabetes mellitus, type 2) History of chronic hypertension HTN (hypertension) Hypoglycemia Adult failure to thrive Anemia Back pain Depression Intractable neuropathic pain of right lower extremity CKD (chronic kidney disease), stage IV Diabetes mellitus Chief Complaint port draw port draw INTRACTABLE LEG PAIN INTRACTABLE LEG PAIN INTRACTABLE LEG PAIN FAILURE TO THRIVE, BACK PAIN FAILURE TO THRIVE, BACK PAIN FAILURE TO THRIVE, BACK PAIN FAILURE TO THRIVE, BACK PAIN FAILURE TO THRIVE, BACK PAIN port draw port draw Reason for Visit Acute pain of right lower extremity Intractable neuropathic pain of right lower extremity CKD (chronic kidney disease), stage IV DM2 (diabetes mellitus, type 2) History of chronic hypertension HTN (hypertension) Hypoglycemia Adult failure to thrive Anemia Back pain Depression Intractable neuropathic pain of right lower extremity CKD (chronic kidney disease), stage IV Diabetes mellitus Chief Complaint INTRACTABLE LEG PAIN INTRACTABLE LEG PAIN INTRACTABLE LEG PAIN FAILURE TO THRIVE, BACK PAIN FAILURE TO THRIVE, BACK PAIN FAILURE TO THRIVE, BACK PAIN FAILURE TO THRIVE, BACK PAIN FAILURE TO THRIVE, BACK PAIN port draw port draw port draw port draw Reason for Visit Acute pain of right lower extremity Intractable neuropathic pain of right lower extremity CKD (chronic kidney disease), stage IV DM2 (diabetes mellitus, type 2) History of chronic hypertension HTN (hypertension) Hypoglycemia Adult failure to thrive Anemia Back pain Depression Intractable neuropathic pain of right lower extremity CKD (chronic kidney disease), stage IV Diabetes mellitus Chief Complaint port draw port draw port draw Retacrit Retacrit Chief Complaint port draw port draw Retacrit Retacrit Retacrit Chief Complaint Retacrit Retacrit Retacrit Retacrit Retacrit Retacrit Chief Complaint Retacrit Retacrit Retacrit Retacrit Retacrit Reason for Referral Specialty Diagnoses / Procedures Referred By Jorje bay Referred To Contact Orthopedics Diagnoses Pain of right lower extremity Procedures CONSULT TO ORTHOPAEDICS OFFICE/OUTPATIENT [facility] 60-74 MINUTES Carissa Lee APRN.[employer] [address] [place] [address] Referral ID Status Reason Start Date Expiration Date Visits Requested Visits Authorized [id number] Authorized PCP Requested Referral 12/04/2021 12/04/2022 1 1 Specialty Diagnoses / Procedures Referred By Contac t Referred To Contact Diagnoses Chronic combined systolic and diastolic CHF, NYHA class 3 (CMS/HCC) Dyspnea on exertion Procedures ECG 12 Lead Chris Antoine MD [address] [facility], [facility] [address] [place] [address] Referral ID Status Reason Start Date Expiration Date V isits Requested Visits Authorized [id number] Pending Review 12/28/2022 06/26/2023 1 1 Specialty Diagnoses / Procedures Referred By Contac t Referred To Contact Cardiology Diagnoses ICD (implantable cardioverter-defibrillator) in place Paroxysmal ventricular tachycardia (CMS/HCC) Procedures Cardiac device check - Remote alert Claus Browne MD [address] [place] [address] [id number] Nonv[address] [place] [address] Referral ID Status Reason Start Date Expiration Date Visits Requested Visits Authorized [id number] Authorized Perform Procedure 04/17/2023 04/16/2024 1 1 Specialty Diagnoses / Procedures Referred By Contac t Referred To Contact Cardiology Diagnoses ICD (implantable cardioverter-defibrillator) in place Paroxysmal ventricular tachycardia (CMS/HCC) Procedures Cardiac Device Check - In Clinic Claus Browne MD [address] [place] [address] Referral ID Status Reason Start Date Expiration Date Visits Requested Visits Authorized [id number] Pending Review Perform Procedure 05/14/2023 05/13/2024 1 1 Specialty Diagnoses / Procedures Referred By Contac t Referred To Contact Cardiology Diagnoses ICD (implantable cardioverter-defibrillator) in place Paroxysmal ventricular tachycardia (Multi) Procedures Cardiac Device Check - Remote Claus Browne MD [address] [facility], [facility] [address] [place] [address] [facility]140 [address] [facility] [address] [place] [address] Referral ID Status Reason Start Date Expiration Date Visits Requested Visits Authorized [id number] Authorized Perform Procedure 07/17/2023 07/16/2024 10 10 Specialty Diagnoses / Procedures Referred By Contac t Referred To Contact Home Health Services Diagnoses Chest pain, unspecified type Tara Rollins I, [employer] [address] [place] [address] [facility] [address] [place] [address] Referral ID Status Reason Start Date Expiration Date Visits Requested Visits Authorized [id number] Pending Review Specialty Services Required 09/11/2023 09/10/2024 [id number] Specialty Diagnoses / Procedures Referred By Contac t Referred To Contact Cardiology Diagnoses ICD (implantable cardioverter-defibrillator) in place Paroxysmal ventricular tachycardia (Multi) Procedures Cardiac Device Check - In Clinic Claus Browne MD [address] [facility] [address], [address] [address] Referral ID Status Reason Start Date Expiration Date Visits Requested Visits Authorized [id number] Authorized Perform Procedure 05/14/2023 05/13/2024 2 2 Chief Complaint ACC/AHA stage C HFrEF* VAL ERICKSON is here for a follow-up visit and here with sonRd. * Reason for Visit: Review CXR, PFT, ABG, SST, Nocturnal Pulse Ox. * VAL ERICKSON is here for a follow-up visit and here with Rd pearson. * Reason for Visit: Review CXR, PFT, ABG, SST, Nocturnal Pulse Ox. 1 MO MARTINEZ-TRIAL OF TRELEGY1 MO MARTINEZ-TRIAL OF TRELEGY1 MO MARTINEZ-TRIAL OF TRELEGYHeart failure with reduced ejection fractionMEDIPORT REMOVALPt here for 1 week wound check s/p pacemaker placement with Dr. Browne on 10/03/22 @ [facility]. states she feels well. Dressing removed. Site healing well with mild ecchymosis. No drainage, swelling or redness noted. Steris strips intact. Slight irritation with bandage adhesive. Additional Source Comments INFORMATION SOURCE (unrecogn ized section and content) DATE CREATED AUTHOR 04/29/2018 [facility] DATE CREATED AUTHOR AUTHOR'S ORGANIZ ATION 05/07/2018 [facility] DATE CREATED AUTHOR AUTHOR'S ORGANIZ ATION 02/13/2022 [facility] DATE CREATED AUTHOR AUTHOR'S ORGANIZ ATION 12/18/2022 [employer] DATE CREATED AUTHOR AUTHOR'S ORGANIZ ATION 12/20/2022 [facility] DATE CREATED AUTHOR AUTHOR'S ORGANIZ ATION 02/03/2023 [facility] DATE CREATED AUTHOR AUTHOR'S ORGANIZ ATION 03/27/2024 [facility] DATE CREATED AUTHOR AUTHOR'S ORGANIZ ATION 06/20/2024 [facility] DATE CREATED AUTHOR AUTHOR'S ORGANIZ ATION 07/22/2024 [facility] DATE CREATED AUTHOR AUTHOR'S ORGANIZ ATION 08/03/2024 [facility] DATE CREATED AUTHOR AUTHOR'S ORGANIZ ATION 09/19/2024 [facility] DATE CREATED AUTHOR AUTHOR'S ORGANIZ ATION 09/26/2024 [facility] Goals (unrecognized section and content) Goals may be documented in a n alternate sectionGoals may be documented in an alternate sectionGoals may be documented in an alternate sectionGoals may be documented in an alternate sectionGoals may be documented in an alternate sectionGoals may be documented in an alternate sectionGoals may be documented in an alternate sectionGoals may be documented in an alternate sectionGoals may be documented in an alternate sectionGoals may be documented in an alternate sectionGoals may be documented in an alternate sectionGoals may be documented in an alternate sectionGoals may be documented in an alternate sectionGoals may be documented in an alternate sectionGoals may be documented in an alternate sectionGoals may be documented in an alternate sectionGoals may be documented in an alternate sectionGoals may be documented in an alternate sectionGoals may be documented in an alternate sectionGoals may be documented in an alternate sectionGoals may be documented in an alternate sectionGoals may be documented in an alternate section Source Comments (unrecognize d section and content) In the event this informatio n is protected by the Federal Confidentiality of Alcohol and Drug Abuse Patient Records regulations: The Federal rules restrict any use of the information to criminally investigate or prosecute any alcohol or drug abuse patient.[facility] Hospital[facility] the event this information is protected by the Federal Confidentiality of Alcohol and Drug Abuse Patient Records regulations: The Federal rules restrict any use of the information to criminally investigate or prosecute any alcohol or drug abuse patient.[facility] HospitalIn the event this information is protected by the Federal Confidentiality of Alcohol and Drug Abuse Patient Records regulations: The Federal rules restrict any use of the information to criminally investigate or prosecute any alcohol or drug abuse patient.[facility] HospitalIn the event this information is protected by the Federal Confidentiality of Alcohol and Drug Abuse Patient Records regulations: The Federal rules restrict any use of the information to criminally investigate or prosecute any alcohol or drug abuse patient.[facility] HospitalIn the event this information is protected by the Federal Confidentiality of Alcohol and Drug Abuse Patient Records regulations: The Federal rules restrict any use of the information to criminally investigate or prosecute any alcohol or drug abuse patient.[facility] HospitalIn the event this information is protected by the Federal Confidentiality of Alcohol and Drug Abuse Patient Records regulations: The Federal rules restrict any use of the information to criminally investigate or prosecute any alcohol or drug abuse patient.[facility] HospitalIn the event this information is protected by the Federal Confidentiality of Alcohol and Drug Abuse Patient Records regulations: The Federal rules restrict any use of the information to criminally investigate or prosecute any alcohol or drug abuse patient.[facility] HospitalIn the event this information is protected by the Federal Confidentiality of Alcohol and Drug Abuse Patient Records regulations: The Federal rules restrict any use of the information to criminally investigate or prosecute any alcohol or drug abuse patient.[facility] HospitalIn the event this information is protected by the Federal Confidentiality of Alcohol and Drug Abuse Patient Records regulations: The Federal rules restrict any use of the information to criminally investigate or prosecute any alcohol or drug abuse patient.[facility] HospitalIn the event this information is protected by the Federal Confidentiality of Alcohol and Drug Abuse Patient Records regulations: The Federal rules restrict any use of the information to criminally investigate or prosecute any alcohol or drug abuse patient.[facility] HospitalIn the event this information is protected by the Federal Confidentiality of Alcohol and Drug Abuse Patient Records regulations: The Federal rules restrict any use of the information to criminally investigate or prosecute any alcohol or drug abuse patient.[facility] HospitalIn the event this information is protected by the Federal Confidentiality of Alcohol and Drug Abuse Patient Records regulations: The Federal rules restrict any use of the information to criminally investigate or prosecute any alcohol or drug abuse patient.[facility] HospitalIn the event this information is protected by the Federal Confidentiality of Alcohol and Drug Abuse Patient Records regulations: The Federal rules restrict any use of the information to criminally investigate or prosecute any alcohol or drug abuse patient.[facility] HospitalIn the event this information is protected by the Federal Confidentiality of Alcohol and Drug Abuse Patient Records regulations: The Federal rules restrict any use of the information to criminally investigate or prosecute any alcohol or drug abuse patient.[facility] HospitalIn the event this information is protected by the Federal Confidentiality of Alcohol and Drug Abuse Patient Records regulations: The Federal rules restrict any use of the information to criminally investigate or prosecute any alcohol or drug abuse patient.[facility] HospitalIn the event this information is protected by the Federal Confidentiality of Alcohol and Drug Abuse Patient Records regulations: The Federal rules restrict any use of the information to criminally investigate or prosecute any alcohol or drug abuse patient.[facility] HospitalIn the event this information is protected by the Federal Confidentiality of Alcohol and Drug Abuse Patient Records regulations: The Federal rules restrict any use of the information to criminally investigate or prosecute any alcohol or drug abuse patient.[facility] HospitalIn the event this information is protected by the Federal Confidentiality of Alcohol and Drug Abuse Patient Records regulations: The Federal rules restrict any use of the information to criminally investigate or prosecute any alcohol or drug abuse patient.[facility] HospitalIn the event this information is protected by the Federal Confidentiality of Alcohol and Drug Abuse Patient Records regulations: The Federal rules restrict any use of the information to criminally investigate or prosecute any alcohol or drug abuse patient.[facility] HospitalIn the event this information is protected by the Federal Confidentiality of Alcohol and Drug Abuse Patient Records regulations: The Federal rules restrict any use of the information to criminally investigate or prosecute any alcohol or drug abuse patient.[facility] HospitalIn the event this information is protected by the Federal Confidentiality of Alcohol and Drug Abuse Patient Records regulations: The Federal rules restrict any use of the information to criminally investigate or prosecute any alcohol or drug abuse patient.[facility] HospitalIn the event this information is protected by the Federal Confidentiality of Alcohol and Drug Abuse Patient Records regulations: The Federal rules restrict any use of the information to criminally investigate or prosecute any alcohol or drug abuse patient.[facility] HospitalIn the event this information is protected by the Federal Confidentiality of Alcohol and Drug Abuse Patient Records regulations: The Federal rules restrict any use of the information to criminally investigate or prosecute any alcohol or drug abuse patient.[facility] HospitalIn the event this information is protected by the Federal Confidentiality of Alcohol and Drug Abuse Patient Records regulations: The Federal rules restrict any use of the information to criminally investigate or prosecute any alcohol or drug abuse patient.[facility] HospitalIn the event this information is protected by the Federal Confidentiality of Alcohol and Drug Abuse Patient Records regulations: The Federal rules restrict any use of the information to criminally investigate or prosecute any alcohol or drug abuse patient.[facility] HospitalIn the event this information is protected by the Federal Confidentiality of Alcohol and Drug Abuse Patient Records regulations: The Federal rules restrict any use of the information to criminally investigate or prosecute any alcohol or drug abuse patient.[facility] HospitalIn the event this information is protected by the Federal Confidentiality of Alcohol and Drug Abuse Patient Records regulations: The Federal rules restrict any use of the information to criminally investigate or prosecute any alcohol or drug abuse patient.[facility] HospitalIn the event this information is protected by the Federal Confidentiality of Alcohol and Drug Abuse Patient Records regulations: The Federal rules restrict any use of the information to criminally investigate or prosecute any alcohol or drug abuse patient.[facility] HospitalIn the event this information is protected by the Federal Confidentiality of Alcohol and Drug Abuse Patient Records regulations: The Federal rules restrict any use of the information to criminally investigate or prosecute any alcohol or drug abuse patient.[facility] HospitalIn the event this information is protected by the Federal Confidentiality of Alcohol and Drug Abuse Patient Records regulations: The Federal rules restrict any use of the information to criminally investigate or prosecute any alcohol or drug abuse patient.[facility] HospitalIn the event this information is protected by the Federal Confidentiality of Alcohol and Drug Abuse Patient Records regulations: The Federal rules restrict any use of the information to criminally investigate or prosecute any alcohol or drug abuse patient.[facility] HospitalIn the event this information is protected by the Federal Confidentiality of Alcohol and Drug Abuse Patient Records regulations: The Federal rules restrict any use of the information to criminally investigate or prosecute any alcohol or drug abuse patient.[facility] HospitalIn the event this information is protected by the Federal Confidentiality of Alcohol and Drug Abuse Patient Records regulations: The Federal rules restrict any use of the information to criminally investigate or prosecute any alcohol or drug abuse patient.[facility] HospitalIn the event this information is protected by the Federal Confidentiality of Alcohol and Drug Abuse Patient Records regulations: The Federal rules restrict any use of the information to criminally investigate or prosecute any alcohol or drug abuse patient.[facility] HospitalIn the event this information is protected by the Federal Confidentiality of Alcohol and Drug Abuse Patient Records regulations: The Federal rules restrict any use of the information to criminally investigate or prosecute any alcohol or drug abuse patient.[facility] HospitalIn the event this information is protected by the Federal Confidentiality of Alcohol and Drug Abuse Patient Records regulations: The Federal rules restrict any use of the information to criminally investigate or prosecute any alcohol or drug abuse patient.[facility] HospitalIn the event this information is protected by the Federal Confidentiality of Alcohol and Drug Abuse Patient Records regulations: The Federal rules restrict any use of the information to criminally investigate or prosecute any alcohol or drug abuse patient.[facility] HospitalIn the event this information is protected by the Federal Confidentiality of Alcohol and Drug Abuse Patient Records regulations: The Federal rules restrict any use of the information to criminally investigate or prosecute any alcohol or drug abuse patient.[facility] HospitalIn the event this information is protected by the Federal Confidentiality of Alcohol and Drug Abuse Patient Records regulations: The Federal rules restrict any use of the information to criminally investigate or prosecute any alcohol or drug abuse patient.[facility] HospitalIn the event this information is protected by the Federal Confidentiality of Alcohol and Drug Abuse Patient Records regulations: The Federal rules restrict any use of the information to criminally investigate or prosecute any alcohol or drug abuse patient.[facility] HospitalIn the event this information is protected by the Federal Confidentiality of Alcohol and Drug Abuse Patient Records regulations: The Federal rules restrict any use of the information to criminally investigate or prosecute any alcohol or drug abuse patient.[facility] HospitalIn the event this information is protected by the Federal Confidentiality of Alcohol and Drug Abuse Patient Records regulations: The Federal rules restrict any use of the information to criminally investigate or prosecute any alcohol or drug abuse patient.[facility] HospitalIn the event this information is protected by the Federal Confidentiality of Alcohol and Drug Abuse Patient Records regulations: The Federal rules restrict any use of the information to criminally investigate or prosecute any alcohol or drug abuse patient.[facility] HospitalIn the event this information is protected by the Federal Confidentiality of Alcohol and Drug Abuse Patient Records regulations: The Federal rules restrict any use of the information to criminally investigate or prosecute any alcohol or drug abuse patient.[facility] HospitalIn the event this information is protected by the Federal Confidentiality of Alcohol and Drug Abuse Patient Records regulations: The Federal rules restrict any use of the information to criminally investigate or prosecute any alcohol or drug abuse patient.[facility] HospitalIn the event this information is protected by the Federal Confidentiality of Alcohol and Drug Abuse Patient Records regulations: The Federal rules restrict any use of the information to criminally investigate or prosecute any alcohol or drug abuse patient.[facility] HospitalIn the event this information is protected by the Federal Confidentiality of Alcohol and Drug Abuse Patient Records regulations: The Federal rules restrict any use of the information to criminally investigate or prosecute any alcohol or drug abuse patient.[facility] HospitalIn the event this information is protected by the Federal Confidentiality of Alcohol and Drug Abuse Patient Records regulations: The Federal rules restrict any use of the information to criminally investigate or prosecute any alcohol or drug abuse patient.[facility] HospitalIn the event this information is protected by the Federal Confidentiality of Alcohol and Drug Abuse Patient Records regulations: The Federal rules restrict any use of the information to criminally investigate or prosecute any alcohol or drug abuse patient.[facility] HospitalIn the event this information is protected by the Federal Confidentiality of Alcohol and Drug Abuse Patient Records regulations: The Federal rules restrict any use of the information to criminally investigate or prosecute any alcohol or drug abuse patient.[facility] HospitalIn the event this information is protected by the Federal Confidentiality of Alcohol and Drug Abuse Patient Records regulations: The Federal rules restrict any use of the information to criminally investigate or prosecute any alcohol or drug abuse patient.[facility] HospitalIn the event this information is protected by the Federal Confidentiality of Alcohol and Drug Abuse Patient Records regulations: The Federal rules restrict any use of the information to criminally investigate or prosecute any alcohol or drug abuse patient.[facility] HospitalIn the event this information is protected by the Federal Confidentiality of Alcohol and Drug Abuse Patient Records regulations: The Federal rules restrict any use of the information to criminally investigate or prosecute any alcohol or drug abuse patient.[facility] HospitalIn the event this information is protected by the Federal Confidentiality of Alcohol and Drug Abuse Patient Records regulations: The Federal rules restrict any use of the information to criminally investigate or prosecute any alcohol or drug abuse patient.[facility] HospitalIn the event this information is protected by the Federal Confidentiality of Alcohol and Drug Abuse Patient Records regulations: The Federal rules restrict any use of the information to criminally investigate or prosecute any alcohol or drug abuse patient.[facility] HospitalIn the event this information is protected by the Federal Confidentiality of Alcohol and Drug Abuse Patient Records regulations: The Federal rules restrict any use of the information to criminally investigate or prosecute any alcohol or drug abuse patient.[facility] HospitalIn the event this information is protected by the Federal Confidentiality of Alcohol and Drug Abuse Patient Records regulations: The Federal rules restrict any use of the information to criminally investigate or prosecute any alcohol or drug abuse patient.[facility] HospitalIn the event this information is protected by the Federal Confidentiality of Alcohol and Drug Abuse Patient Records regulations: The Federal rules restrict any use of the information to criminally investigate or prosecute any alcohol or drug abuse patient.[facility] HospitalIn the event this information is protected by the Federal Confidentiality of Alcohol and Drug Abuse Patient Records regulations: The Federal rules restrict any use of the information to criminally investigate or prosecute any alcohol or drug abuse patient.[facility] HospitalIn the event this information is protected by the Federal Confidentiality of Alcohol and Drug Abuse Patient Records regulations: The Federal rules restrict any use of the information to criminally investigate or prosecute any alcohol or drug abuse patient.[facility] HospitalIn the event this information is protected by the Federal Confidentiality of Alcohol and Drug Abuse Patient Records regulations: The Federal rules restrict any use of the information to criminally investigate or prosecute any alcohol or drug abuse patient.[facility] HospitalIn the event this information is protected by the Federal Confidentiality of Alcohol and Drug Abuse Patient Records regulations: The Federal rules restrict any use of the information to criminally investigate or prosecute any alcohol or drug abuse patient.[facility] HospitalIn the event this information is protected by the Federal Confidentiality of Alcohol and Drug Abuse Patient Records regulations: The Federal rules restrict any use of the information to criminally investigate or prosecute any alcohol or drug abuse patient.[facility] HospitalIn the event this information is protected by the Federal Confidentiality of Alcohol and Drug Abuse Patient Records regulations: The Federal rules restrict any use of the information to criminally investigate or prosecute any alcohol or drug abuse patient.[facility] HospitalIn the event this information is protected by the Federal Confidentiality of Alcohol and Drug Abuse Patient Records regulations: The Federal rules restrict any use of the information to criminally investigate or prosecute any alcohol or drug abuse patient.[facility] HospitalIn the event this information is protected by the Federal Confidentiality of Alcohol and Drug Abuse Patient Records regulations: The Federal rules restrict any use of the information to criminally investigate or prosecute any alcohol or drug abuse patient.[facility] HospitalIn the event this information is protected by the Federal Confidentiality of Alcohol and Drug Abuse Patient Records regulations: The Federal rules restrict any use of the information to criminally investigate or prosecute any alcohol or drug abuse patient.[facility] HospitalIn the event this information is protected by the Federal Confidentiality of Alcohol and Drug Abuse Patient Records regulations: The Federal rules restrict any use of the information to criminally investigate or prosecute any alcohol or drug abuse patient.[facility] HospitalIn the event this information is protected by the Federal Confidentiality of Alcohol and Drug Abuse Patient Records regulations: The Federal rules restrict any use of the information to criminally investigate or prosecute any alcohol or drug abuse patient.[facility] HospitalIn the event this information is protected by the Federal Confidentiality of Alcohol and Drug Abuse Patient Records regulations: The Federal rules restrict any use of the information to criminally investigate or prosecute any alcohol or drug abuse patient.[facility] HospitalIn the event this information is protected by the Federal Confidentiality of Alcohol and Drug Abuse Patient Records regulations: The Federal rules restrict any use of the information to criminally investigate or prosecute any alcohol or drug abuse patient.[facility] HospitalIn the event this information is protected by the Federal Confidentiality of Alcohol and Drug Abuse Patient Records regulations: The Federal rules restrict any use of the information to criminally investigate or prosecute any alcohol or drug abuse patient.[facility] HospitalIn the event this information is protected by the Federal Confidentiality of Alcohol and Drug Abuse Patient Records regulations: The Federal rules restrict any use of the information to criminally investigate or prosecute any alcohol or drug abuse patient.[facility] HospitalIn the event this information is protected by the Federal Confidentiality of Alcohol and Drug Abuse Patient Records regulations: The Federal rules restrict any use of the information to criminally investigate or prosecute any alcohol or drug abuse patient.[facility] HospitalIn the event this information is protected by the Federal Confidentiality of Alcohol and Drug Abuse Patient Records regulations: The Federal rules restrict any use of the information to criminally investigate or prosecute any alcohol or drug abuse patient.[facility] HospitalIn the event this information is protected by the Federal Confidentiality of Alcohol and Drug Abuse Patient Records regulations: The Federal rules restrict any use of the information to criminally investigate or prosecute any alcohol or drug abuse patient.[facility] HospitalIn the event this information is protected by the Federal Confidentiality of Alcohol and Drug Abuse Patient Records regulations: The Federal rules restrict any use of the information to criminally investigate or prosecute any alcohol or drug abuse patient.[facility] HospitalIn the event this information is protected by the Federal Confidentiality of Alcohol and Drug Abuse Patient Records regulations: The Federal rules restrict any use of the information to criminally investigate or prosecute any alcohol or drug abuse patient.[facility] HospitalIn the event this information is protected by the Federal Confidentiality of Alcohol and Drug Abuse Patient Records regulations: The Federal rules restrict any use of the information to criminally investigate or prosecute any alcohol or drug abuse patient.[facility] HospitalIn the event this information is protected by the Federal Confidentiality of Alcohol and Drug Abuse Patient Records regulations: The Federal rules restrict any use of the information to criminally investigate or prosecute any alcohol or drug abuse patient.[facility] HospitalIn the event this information is protected by the Federal Confidentiality of Alcohol and Drug Abuse Patient Records regulations: The Federal rules restrict any use of the information to criminally investigate or prosecute any alcohol or drug abuse patient.[facility] HospitalIn the event this information is protected by the Federal Confidentiality of Alcohol and Drug Abuse Patient Records regulations: The Federal rules restrict any use of the information to criminally investigate or prosecute any alcohol or drug abuse patient.[facility] HospitalIn the event this information is protected by the Federal Confidentiality of Alcohol and Drug Abuse Patient Records regulations: The Federal rules restrict any use of the information to criminally investigate or prosecute any alcohol or drug abuse patient.[facility] HospitalIn the event this information is protected by the Federal Confidentiality of Alcohol and Drug Abuse Patient Records regulations: The Federal rules restrict any use of the information to criminally investigate or prosecute any alcohol or drug abuse patient.[facility] HospitalIn the event this information is protected by the Federal Confidentiality of Alcohol and Drug Abuse Patient Records regulations: The Federal rules restrict any use of the information to criminally investigate or prosecute any alcohol or drug abuse patient.[facility] HospitalIn the event this information is protected by the Federal Confidentiality of Alcohol and Drug Abuse Patient Records regulations: The Federal rules restrict any use of the information to criminally investigate or prosecute any alcohol or drug abuse patient.[facility] HospitalIn the event this information is protected by the Federal Confidentiality of Alcohol and Drug Abuse Patient Records regulations: The Federal rules restrict any use of the information to criminally investigate or prosecute any alcohol or drug abuse patient.[facility] HospitalIn the event this information is protected by the Federal Confidentiality of Alcohol and Drug Abuse Patient Records regulations: The Federal rules restrict any use of the information to criminally investigate or prosecute any alcohol or drug abuse patient.[facility] HospitalIn the event this information is protected by the Federal Confidentiality of Alcohol and Drug Abuse Patient Records regulations: The Federal rules restrict any use of the information to criminally investigate or prosecute any alcohol or drug abuse patient.[facility] HospitalIn the event this information is protected by the Federal Confidentiality of Alcohol and Drug Abuse Patient Records regulations: The Federal rules restrict any use of the information to criminally investigate or prosecute any alcohol or drug abuse patient.[facility] HospitalIn the event this information is protected by the Federal Confidentiality of Alcohol and Drug Abuse Patient Records regulations: The Federal rules restrict any use of the information to criminally investigate or prosecute any alcohol or drug abuse patient.[facility] HospitalIn the event this information is protected by the Federal Confidentiality of Alcohol and Drug Abuse Patient Records regulations: The Federal rules restrict any use of the information to criminally investigate or prosecute any alcohol or drug abuse patient.[facility] Reason for Visit (unrecogniz ed section and content) Reason Comments Lab Orders Reason Comments Recheck Reason Comments Leg Pain [...] Dyspnea on exertion Procedures ECG 12 Lead Chris Antoine MD [address] [facility] [address] [place] [address] Referral ID Status Reason Start Date Expiration Date V isits Requested Visits Authorized [id number] Pending Review 12/28/2022 06/26/2023 1 1 Reason Comments F/U 6 months Reason Comments Other ONLINE PROGRAM COORDINATOR DEFIBALATOR 3322 5 HEART FAILURE I50.42 [employer] NOTIFIED Reason Onset Date Comments Refill Request 02/11/2023 Reason Comments Diabetes Reason Comments 4 month follow up MARTINEZ; HYPOXEMIA Specialty Diagnoses / Procedures Referred By Contac t Referred To Contact Cardiology Diagnoses ICD (implantable cardioverter-defibrillator) in place Paroxysmal ventricular tachycardia (CMS/HCC) Procedures Cardiac device check - Remote alert Claus Browne MD [address] [facility] [address], [address] [place] [address] Par [id number] Cr [id number] [address] [employer] [facility] [address] [place] [address] Referral ID Status Reason Start Date Expiration Date Visits Requested Visits Authorized [id number] Authorized Perform Procedure 04/17/2023 04/16/2024 1 1 [...] (implantable cardioverter-defibrillator) in place Paroxysmal ventricular tachycardia ([facility]/HCC) Procedures Cardiac Device Check - In Clinic Claus Browne MD [address] [facility] [address], [address] [address] Referral ID Status Reason Start Date Expiration Date Visits Requested Visits Authorized [id number] Pending Review Perform Procedure 05/14/2023 05/13/2024 1 1 Reason Onset Date Comments Community Monitoring Outreach 05/15/2023 Fo llow up Reason Onset Date Comments Community Monitorig Outreach 05/22/2023 Fol low up Reason Comments medicaiton problem Reason Onset Date Comments Community Monitoring Outreach 06/11/2023 Fo llow up Reason Onset Date Comments Community Monitoring Outreach 06/18/2023 Fo llow up Reason Comments 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 Diabetes Reason Comments Missed Appointment Reason Onset Date Comments Community Monitoring Outreach 07/10/2023 Fo llow up Reason Onset Date Comments Community Monitoring Outreach 07/12/2023 Fo llow up Reason Onset Date Comments Refill Request 07/16/2023 Specialty Diagnoses / Procedures Referred By Contac t Referred To Contact Cardiology Diagnoses ICD (implantable cardioverter-defibrillator) in place Paroxysmal ventricular tachycardia ([facility]) Procedures Cardiac Device Check - Remote Claus Browne MD [address] [facility] [address], [address] [address] [place] [address] [address] [facility] [address] [place] [address] Referral ID Status Reason Start Date Expiration Date Visits Requested Visits Authorized [id number] Authorized Perform Procedure 07/17/2023 07/16/2024 10 10 Reason Onset Date Comments Community Monitoring Outreach 07/25/2023 Fo llow up Reason Onset Date Comments Community Monitoring Outreach 07/29/2023 Fo llow up Reason Onset Date Comments Community Monitoring Outreach 08/13/2023 Fo llow up Reason Onset Date Comments Community Monitoring Outreach 08/27/2023 Fo llow up Reason Onset Date Comments Community Monitoring Outreach 09/04/2023 CD M Reason Comments [facility] verbal orders. Reason Comments Patient Request Reason Comments [facility] Reason Comments Medicare Wellness Exam 4 month follow up - fall 09/12 c/o hip pain Reason Onset Date Comments Transition Of Care 09/30/2023 TCM / OON fol lowup Reason Comments PT Order Reason Onset Date Comments Community Monitoring Outreach 10/16/2023 Fo llow up Reason Onset Date Comments Refill Request 10/22/2023 Reason Onset Date Comments Refill Request 12/03/2023 Reason Comments Chest Pain Pt comes in for ches t pain. Pt states that the chest pain was present for approx 30 mins. Pt states that pain resolved after EMS gave 324 of Aspirin. Specialty Diagnoses / Procedures Referred By Contac t Referred To Contact Diagnoses Essential hypertension Type 2 diabetes mellitus with hyperglycemia, with long-term current use of insulin (Multi) Chest pain, unspecified type Chest pain due to myocardial ischemia, unspecified ischemic chest pain type Acute coronary microvascular dysfunction (Multi) Procedures Ip Admission Yrn Hernandez MD [address] [place] [address] [address] [place] [phone] Referral ID Status Reason Start Date Expiration Date Visits Re quested Visits Authorized [id number] 1 1 Reason Comments 6 month f/u Specialty Diagnoses / Procedures Referred By Contac t Referred To Contact Cardiology Diagnoses ICD (implantable cardioverter-defibrillator) in place Paroxysmal ventricular tachycardia (Multi) Procedures Cardiac Device Check - In Clinic Claus Browne MD [address] [facility] 3, [address] [address] Referral ID Status Reason Start Date Expiration Date Visits Requested Visits Authorized [id number] Authorized Perform Procedure 05/14/2023 05/13/2024 2 2 Reason Comments Follow-up 6 month Reason Comments Follow Up 6 months Reason Comments Appointment Reason Comments Medication Problem Reason Comments PT POC Reason Comments Home Health Orders Reason Comments Hospital F/U Reason Comments Medication Problem Ozempic Reason Comments Patient Update Reason Comments Shortness of Breath When ambulating Reason Comments Medicare Wellness Exam F/U 6 months Care Teams (unrecognized sec tion and content) Admin Dir Relationship Specialty Start Date End Date Neel Turpin MD [address] [place] [address] PCP - General 06/17/09 Admin Dir Relationship Specialty Start Date End Date Neel Turpin MD [address] [place] [address] PCP - General 06/17/09 Admin Dir Relationship Specialty Start Date End Date Neel Turpin MD [address] [place] [address] PCP - General 06/17/09 Admin Dir Relationship Specialty Start Date End Date Neel Turpin MD [address] [place] [address] PCP - General 06/17/09 Admin Dir Relationship Specialty Start Date End Date Neel Turpin MD [address] [place] [address] PCP - General 06/17/09 Admin Dir Relationship Specialty Start Date End Date Neel Turpin MD [address] [place] [address] PCP - General 06/17/09 Admin Dir Relationship Specialty Start Date End Date Neel Turpin MD [address] [place] [address] PCP - General 06/17/09 Admin Dir Relationship Specialty Start Date End Date Neel Turpin MD [address] [place] [address] PCP - General 06/17/09 Team Status: Inactive Member Role Status Dates Issa Bonilla MD Attending Provider Active Admin Dir Relationship Specialty Start Date End Date Neel Turpin MD [address] [place] [address] PCP - General 06/17/09 Admin Dir Relationship Specialty Start Date End Date Neel Turpin MD [address] [place] [address] PCP - General 06/17/09 Admin Dir Relationship Specialty Start Date End Date Neel Turpin MD [address] [place] [address] PCP - General 06/17/09 Team Status: Active Member Role Status Dates Dr. Neel Turpin MD Family Provider Active Dr. Neel Turpin MD Primary Care Provider Active Team Status: Active Member Role Status Dates Dr. Neel Turpin MD Primary Care Provider Active Dr. Ernesto Graham DO Emergency Provider Active Dr. Radha Bill MD Admit Provider, At tending Provider, Other Provider Active Team Status: Active Member Role Status Dates Dr. Neel Turpin MD Primary Care Provider Active Dr. Ernesto Graham DO Emergency Provider Active Dr. Radha Bill MD Admit Provider, Other Provider A ctive Dr. Stan Rockwell MD Attending Provider, Other Provid er Active Ken CHAN, PA Other Provider Active Team Status: Active Member Role Status Dates Dr. Neel Turpin MD Primary Care Provider Active Dr. Ezra Stoner MD Emergency Provider Active Dr. Cruzito Ferris DO Admit Provider, At tending Provider, Other Provider Active Team Status: Active Member Role Status Dates Dr. Neel Turpin MD Primary Care Provider Active Dr. Ezra Stoner MD Emergency Provider Active Dr. Cruzito Ferris DO Admit Provider, Other Provider A ctive Dr. Darlene Maguire MD Attending Provider, Other Provider Active Dr. Sivakumar Dinero MD Other Provider Active Team Status: Active Member Role Status Dates Dr. Neel Turpin MD Primary Care Provider Active Dr. Luan Smith MD Attending Provider Active Dr. Darlene Maguire MD Referring Provider Active Team Status: Inactive Member Role Status Dates Dr. Neel Turpin MD Primary Care Provider Active Dr. Peewee Louise MD Attending Provider, Referri ng Provider Active Team Status: Inactive Member Role Status Dates Dr. Neel Turpin MD Primary Care Provider, Atten ding Provider Active Team Status: Inactive Member Role Status Dates Dr. Neel Turpin MD Primary Care Provider Active Dr. Ernesto Graham , Emergency Provider Active Dr. Radha Bill MD Admit Provider, Other Provider A ctive Dr. Stan Rockwell MD Attending Provider Active Dr. Gregory Tsang , Other Provider Active Team Status: Inactive Member Role Status Dates Dr. Neel Turpin MD Primary Care Provider Active Dr. Ezra Stoner MD Emergency Provider Active Dr. Cruzito Ferris , Admit Provider, Other Provider A ctive Dr. Darlene Maguire MD Attending Provider Active Dr. Sivakumar Dinero MD Other Provider Active Admin Dir Relationship Specialty Start Date End Date Neel Turpin MD [address] [place] [address] PCP - General 06/17/09 Admin Dir Relationship Specialty Start Date End Date Neel Turpin MD [address] [place] [address] PCP - General 06/17/09 Admin Dir Relationship Specialty Start Date End Date Neel Turpin MD [address] [place] [address] PCP - General 06/17/09 Admin Dir Relationship Specialty Start Date End Date Neel Turpin MD [address] [place] [address] PCP - General 06/17/09 Admin Dir Relationship Specialty Start Date End Date Neel Turpin MD [address] [place] [address] PCP - General 06/17/09 Admin Dir Relationship Specialty Start Date End Date Neel Turpin MD [address] [place] [address] PCP - General 03/18/18 Admin Dir Relationship Specialty Start Date End Date Neel Turpin MD [address] [place] [address] PCP - General 06/17/09 Admin Dir Relationship Specialty Start Date End Date Neel Turpin MD [address] [place] [address] PCP - General 03/18/18 Admin Dir Relationship Specialty Start Date End Date Neel Turpin MD [address] [place] [address] PCP - General 06/17/09 Admin Dir Relationship Specialty Start Date End Date Neel Turpin MD [address] [place] [address] PCP - General 06/17/09 Tessa Brock, [facility] [address] [facility] [place] [address] Pharmacist Pharmacy 02/14/23 Admin Dir Relationship Specialty Start Date End Date Neel Turpin MD [address] [place] [address] PCP - General 06/17/09 Tessa Brock, [facility] [address] [facility] [place] [address] Pharmacist Pharmacy 02/14/23 Admin Dir Relationship Specialty Start Date End Date Neel Turpin MD [address] [place] [address] PCP - General 03/18/18 Admin Dir Relationship Specialty Start Date End Date Neel Turpin MD [address] [place] [address] PCP - General 03/18/18 Admin Dir Relationship Specialty Start Date End Date Neel Turpin MD [address] [place] [address] PCP - General 06/17/09 Tessa Brock, [facility] [address] [place] [address] Pharmacist Pharmacy 02/14/23 Admin Dir Relationship Specialty Start Date End Date Neel Turpin MD [address] [place] [address] PCP - General 06/17/09 Tessa Brock, [facility] [address] [place] [address] Pharmacist Pharmacy 02/14/23 Admin Dir Relationship Specialty Start Date End Date Neel Turpin MD [address] [place] [address] PCP - General 06/17/09 Tessa Brock, [facility] [address] [place] [address] Pharmacist Pharmacy 02/14/23 Admin Dir Relationship Specialty Start Date End Date Neel Turpin MD [address] [place] [address] PCP - General 06/17/09 [facility] [address] [facility] [place] [address] Pharmacist Pharmacy 02/14/23 Annalisa Stephen, [facility] [address] [place] [address] Bit Bender 05/03/23 Admin Dir Relationship Specialty Start Date End Date Neel Turpin MD [address] [place] [address] PCP - General 06/17/09 [facility] [address] [facility] [place] [address] Pharmacist Pharmacy 02/14/23 Annalisa Stephen, [facility] [address] [place] [address] Bit Bender 05/03/23 Admin Dir Relationship Specialty Start Date End Date Neel Turpin MD [address] [place] [address] PCP - General 06/17/09 [facility] [address] [facility] [place] [address] Pharmacist Pharmacy 02/14/23 Annalisa Stephen, SY[facility]IN [address] [place] [address] Bit Bender 05/03/23 Admin Dir Relationship Specialty Start Date End Date Neel Turpin MD [address] [place] [address] PCP - General 03/18/18 Admin Dir Relationship Specialty Start Date End Date Neel Turpin MD [address] [place] [address] PCP - General 06/17/09 [facility] [address] [facility] [place] [address] Pharmacist Pharmacy 02/14/23 Annalisa Stephen, RN [address] [place] [address] Bit Bender 05/03/23 Admin Dir Relationship Specialty Start Date End Date Neel Turpin MD [address] [place] [address] PCP - General 06/17/09 [facility] [address] [facility] [place] [address] Pharmacist Pharmacy 02/14/23 Annalisa Stephen, SYL[place]IN [address] [place], [place] [id number] Bit Bender 05/03/23 Admin Dir Relationship Specialty Start Date End Date Neel Turpin MD [address] [place] [address] PCP - General 06/17/09 [facility] [address] [facility] [place] [address] Pharmacist Pharmacy 02/14/23 Annalisa Stephen, SYLVAIN [address] [place], [place] [phone] Bit Bender 05/03/23 Admin Dir Relationship Specialty Start Date End Date Neel Turpin MD [address] [place] [address] PCP - General 06/17/09 Tessa Brock, [facility] [address] [facility] [place] [address] Pharmacist Pharmacy 02/14/23 Annalisa Stephen, SY[place]IN [address] [place] [address] Bit Bender 05/03/23 Admin Dir Relationship Specialty Start Date End Date Neel Turpin MD [address] [place] [address] PCP - General 06/17/09 Tessa Brock, [facility] [address] [facility] [place] [address] Pharmacist Pharmacy 02/14/23 Annalisa Stephen, SYLVAIN [address] [place] [address] Bit Bender 05/03/23 Admin Dir Relationship Specialty Start Date End Date Neel Turpin MD [address] [place] [address] PCP - General 06/17/09 Tessa Brock, [facility] [address] [facility] [place] [address] Pharmacist Pharmacy 02/14/23 Annalisa Stephen, SYLVAIN [address] [place] [address] Bit Bender 05/03/23 Admin Dir Relationship Specialty Start Date End Date Neel Turpin MD [address] [place] [address] PCP - General 06/17/09 Tessa Brock, [facility] [address] [facility] [place] [address] Pharmacist Pharmacy 02/14/23 Annalisa Stephen, RN [address] [place] [address] Bit Bender 05/03/23 Admin Dir Relationship Specialty Start Date End Date Neel Turpin MD [address] [place] [address] PCP - General 06/17/09 Tessa Brock, [facility] [facility] [address] [place] [address] Pharmacist Pharmacy 02/14/23 Annalisa Stephen, SYLVAIN [address] [place] [address] Bit Bender 05/03/23 Admin Dir Relationship Specialty Start Date End Date Neel Turpin MD [address] [place] [address] PCP - General 06/17/09 Tessa Brock, [facility] [address] [place] [address] Pharmacist Pharmacy 02/14/23 Annalisa Stephen, SYLVAIN [address] [place] [address] Bit Bender 05/03/23 Malissa Madison, SYLVAIN [address] [place] [address] Primary Care Tonger 09/12/23 Admin Dir Relationship Specialty Start Date End Date Neel Turpin MD [address] [place] [address] PCP - General 06/17/09 Tessa Brock, [facility] [address] [place] [address] Pharmacist Pharmacy 02/14/23 Annalisa Stephen, SYLVAIN [address] [place], [place] [id number] Bit Bender 05/03/23 Malissa Madison, SYLVAIN [address] [place], [place] [id number] Primary Care Tonger 09/12/23 Admin Dir Relationship Specialty Start Date End Date Neel Turpin MD [address] [place] [address] PCP - General 06/17/[facility] [address] [place] [address] Pharmacist Pharmacy 02/14/23 Annalisa Stephen, SYLVAIN [address] [place] [address] Bit Bender 05/03/23 Malissa Madison, SYLVAIN [address] [place], [place] [id number] Primary Care Tonger 09/12/23 Admin Dir Relationship Specialty Start Date End Date Neel Turpin MD [address] [place] [address] PCP - General 06/17/09 Tessa Brock, [facility] [address] [place] [address] Pharmacist Pharmacy 02/14/23 Annalisa Stephen, SYLVAIN [address] [place], [place] [phone] Bit Bender 05/03/23 Malissa Madison, SYLVAIN [address] [place], [place] [phone] Primary Care Tonger 09/12/23 Admin Dir Relationship Specialty Start Date End Date Neel Turpin MD [address] [place] [address] PCP - General 06/17/09 Tessa Brock, [facility] [address] [facility] [place] [address] Pharmacist Pharmacy 02/14/23 Annalisa Stephen, SYLVAIN [address] [place] [address] Bit Bender 05/03/23 Malissa Madison, SYLVAIN [address] [place] [address] Primary Care Tonger 09/12/23 Admin Dir Relationship Specialty Start Date End Date Neel Turpin MD [address] [place] [address] PCP - General 06/17/09 Tessa Brock, [facility] [address] [place] [address] Pharmacist Pharmacy 02/14/23 Admin Dir Relationship Specialty Start Date End Date Neel Turpin MD [address] [place] [address] PCP - General 06/17/09 Tessa Brock, [facility] [address] [facility] [place] [address] Pharmacist Pharmacy 02/14/23 Admin Dir Relationship Specialty Start Date End Date Neel Turpin MD [address] [place] [address] PCP - General 06/17/09 Tessa Brock, [facility] [address] [facility] [place] [address] Pharmacist Pharmacy 02/14/23 Admin Dir Relationship Specialty Start Date End Date Neel Turpin MD [address] [place] [address] PCP - General 06/17/09 [facility] [address] [facility] [place] [address] Pharmacist Pharmacy 02/14/23 Annalisa Stephen, SYLVAIN [address] [place] [address] Bit Bender 05/03/2309/17 Malissa Madison, SYLVAIN [address] [place] [address] Primary Care Tonger 09/12/23 10/12/23 Admin Dir Relationship Specialty Start Date End Date Neel Turpin MD [address] [place] [address] PCP - General 06/17/09 [facility] [address] [facility] [place] [address] Pharmacist Pharmacy 02/14/23 Admin Dir Relationship Specialty Start Date End Date Neel Turpin MD [address] [place] [address] PCP - General 06/17/09 Admin Dir Relationship Specialty Start Date End Date Neel Turpin MD [address] [place] [address] PCP - General 06/17/09 [facility] [address] [facility] [place] [address] Pharmacist Pharmacy 02/14/23 Admin Dir Relationship Specialty Start Date End Date Neel Turpin MD [address] [place] [address] PCP - General 03/18/18 Admin Dir Relationship Specialty Start Date End Date Neel Turpin MD [address] [place] [address] PCP - General 03/18/18 Admin Dir Relationship Specialty Start Date End Date Neel Turpin MD [address] [place] [address] PCP - General 03/18/18 Admin Dir Relationship Specialty Start Date End Date Neel Turpin MD [address] [place] [address] PCP - General 06/17/09 Tessa Brock, [facility] [address] [place] [address] Pharmacist Pharmacy 02/14/23 Kacy Mary, VISUAL DISPLAY MANAGER.[employer]ONUT COOKER [address] [place] [address] Fire Alarm Mechanic Internal Medicine 02/24/24 Admin Dir Relationship Specialty Start Date End Date Neel Turpin MD [address] [place] [address] PCP - General 06/17/09 Tessa Brock, [facility] [address] [place] [address] Pharmacist Pharmacy 02/14/23 Kacy Mary, VISUAL DISPLAY MANAGER.[employer]ONUT COOKER [address] [place] [address] Fire Alarm Mechanic Internal Medicine 02/24/24 Admin Dir Relationship Specialty Start Date End Date Neel Turpin MD [address] [place] [address] PCP - General 03/18/18 Admin Dir Relationship Specialty Start Date End Date Neel Turpin MD [address] [place] [address] PCP - General 06/17/09 [facility] [address] [place] [address] Pharmacist Pharmacy 02/14/23 Kacy Mary, VISUAL DISPLAY MANAGER.[employer]ONUT COOKER [address] [place] [address] Fire Alarm Mechanic Internal Medicine 02/24/24 Admin Dir Relationship Specialty Start Date End Date Neel Turpin MD [address] [place] [address] PCP - General 06/17/09 [facility] [address] [place] [address] Pharmacist Pharmacy 02/14/23 Kacy Mary, VISUAL DISPLAY MANAGER.[employer]ONUT COOKER [address] [place] [address] Fire Alarm Mechanic Internal Medicine 02/24/24 Admin Dir Relationship Specialty Start Date End Date Neel Turpin MD [address] [place] [address] PCP - General 06/17/09 Tessa Brock, [facility] [address] [place] [address] Pharmacist Pharmacy 02/14/23 Kacy Mary, VISUAL DISPLAY MANAGER.[employer]ONUT COOKER [address] [place] [address] Fire Alarm Mechanic Internal Medicine 02/24/24 Admin Dir Relationship Specialty Start Date End Date Neel Turpin MD [address] [place] [address] PCP - General 06/17/09 Tessa Brock, [facility] [address] [place] [address] Pharmacist Pharmacy 02/14/23 Kacy Mary, VISUAL DISPLAY MANAGER.[employer] COOKER [address] [place] [address] Fire Alarm Mechanic Internal Medicine 02/24/24 Admin Dir Relationship Specialty Start Date End Date Neel Turpin MD [address] [place] [address] PCP - General 03/18/18 Admin Dir Relationship Specialty Start Date End Date Neel Turpin MD [address] [place] [address] PCP - General 06/17/09 Tessa Brock, [facility] [address] [place] [address] Pharmacist Pharmacy 02/14/23 Kacy Mary, VISUAL DISPLAY MANAGER.[employer] COOKER [address] [place] [address] Fire Alarm Mechanic Internal Medicine 02/24/24 Admin Dir Relationship Specialty Start Date End Date Neel Turpin MD [address] [place] [address] PCP - General 06/17/09 [facility] [address] [place] [address] Pharmacist Pharmacy 02/14/23 Kacy Mary, VISUAL DISPLAY MANAGER.[employer]ONUT COOKER [address] [place] [address] Fire Alarm Mechanic Internal Medicine 02/24/24 Admin Dir Relationship Specialty Start Date End Date Neel Turpin MD [address] [place] [address] PCP - General 06/17/09 [facility] [address] [place] [address] Pharmacist Pharmacy 02/14/23 Kacy Mary, VISUAL DISPLAY MANAGER.[employer] COOKER [address] [place] [address] Fire Alarm Mechanic Internal Medicine 02/24/24 Admin Dir Relationship Specialty Start Date End Date Neel Turpin MD [address] [place] [address] PCP - General 06/17/09 [facility] [address] [place] [address] Pharmacist Pharmacy 02/14/23 Kacy Mary, VISUAL DISPLAY MANAGER.[employer] COOKER [address] [place] [address] Fire Alarm Mechanic Internal Medicine 02/24/24 Admin Dir Relationship Specialty Start Date End Date Neel Turpin MD [address] [place] [address] PCP - General 06/17/09 Tessa Brock, [facility] [address] [place] [address] Pharmacist Pharmacy 02/14/23 Kacy Mary, VISUAL DISPLAY MANAGER.[employer]OOKER [address] [place] [address] Fire Alarm Mechanic Internal Medicine 02/24/24 Admin Dir Relationship Specialty Start Date End Date Neel Turpin MD [address] [place] [address] PCP - General 06/17/09 Tessa Brock, [facility] [address] [place] [address] Pharmacist Pharmacy 02/14/23 Kacy Mary, VISUAL DISPLAY MANAGER.[employer]OOKER [address] [place] [address] Fire Alarm Mechanic Internal Medicine 02/24/24 Admin Dir Relationship Specialty Start Date End Date Neel Turpin MD [address] [place] [address] PCP - General 06/17/09 Tessa Brock, [facility] [address] [place] [address] Pharmacist Pharmacy 02/14/23 Kacy Mary, DAHLIA.[employer]OCONUT COOKER [address] [place] [address] Fire Alarm Mechanic Internal Medicine 02/24/24 <item> Privacy Markings (unrecogniz ed section and content) Section Author: Eneida Soriano PROHIBITION ON REDISCLOSURE OF CONFIDENTIAL INFORMATION This notice accompanies a disclosure of information concerning a client made to you with the consent of such client. Scheduled Active and Recently Administ ered Medications (unrecognized section and content) Medication Order 09/09/2023 09/10/2023 09/11/2023 aspirin chewable tablet 325 mg 325 mg, oral, Once, On Sat09/09/23 at 1200, For 1 dose, Preprocedure, If unable to take orally, may crush and immediately give by feeding tube. 1200 (Not Given - Provider: Nichol Berg RN - Reason: Other - Comment: pt given 324mg ASA by EMS this morning) budesonide (Pulmicort) 0.5 mg/2 mL nebulizer solution 0.5 mg 0.5 mg, nebulization, 2 times daily RT, First dose on Sat09/09/23 at 0945, Rinse mouth with water after use to reduce aftertaste and incidence of candidiasis. Do not swallow. 0945 (Canceled Entry - Provider: Lizeth Shane RRT)1838 (Given - Provider: Yue Hicks RRT) 0616 (Given - Provider: Lizeth Shane RRT)1846 (Given - Provider: Luis Darling RRT) 0627 (Given - Provider: Robyn D Natalie, GEOPHYSICAL DRAFTER)1900 (Due) docusate sodium (Colace) capsule 100 mg 100 mg, oral, Daily, First dose on Sat09/09/23 at 0945 1056 (Given - Provider: Kang Faust RN) 0900 (Not Given - Provider: Kang Faust RN - Reason: Patient/family refused) 0808 (Given - Provider: Sravani Villarreal, RN) enoxaparin (Lovenox) syringe 30 mg 30 mg, subcutaneous, Daily, First dose on Sat09/09/23 at 0945, Renally adjusted for CrCl ~26 mL/min 0945 (Not Given - Provider: Kang Faust RN - Reason: Other - Comment: hold for heart cath) 0819 (Given - Provider: Kang Faust RN) 0808 (Given - Provider: Sravani Villarreal RN) formoterol (Perforomist) 20 mcg/2 mL nebulizer solution 20 mcg 20 mcg, nebulization, 2 times daily RT, First dose on Sat09/09/23 at 0945 0945 (Canceled Entry - Provider: Lizeth Shane, LEAF CONDITIONER HELPER)1832 (Given - Provider: Yue Hicks, LEAF CONDITIONER HELPER) 0611 (Given - Provider: Lizeth Shane, LEAF CONDITIONER HELPER)1839 (Given - Provider: Luis Darling, ROS) 0620 (Given - Provider: Robyn Estrada, GEOPHYSICAL DRAFTER)1900 (Due) furosemide (Lasix) tablet 20 mg (CANCELED) 20 mg, oral, Daily, First dose on Sat09/09/23 at 0945, On hold since Sat09/10/2023 at 0826 until manually unheld 1056 (Given - Provider: Kang Faust RN) 0826 (Held by provider - Provider: Monserrat Prince APRN-COCONUT COOKER - Reason: Post-procedure)0900 (Not Given - Provider: Kang Faust RN - Reason: See Provider Order) 0900 (Not Given - Provider: Sravani Villarreal RN - Reason: See Provider Order)1020 (Unheld by provider - Provider: Gregory Gutierrez APRN-COCONUT COOKER) furosemide (Lasix) tablet 20 mg 20 mg, oral, Daily, First dose on Sat09/11/23 at 1200 1210 (Given - Provider: Sravani Villarreal RN) gabapentin (Neurontin) capsule 300 mg 300 mg, oral, 2 times daily, First dose on Sat09/09/23 at 0945, Capsules may be opened and sprinkled on food (eg, applesauce, orange juice, pudding 0945 (Not Given - Provider: Kang Faust RN - Reason: Patient not available)2030 (Given - Provider: Enriqueta Trent RN) 0820 (Given - Provider: Knag Fasut RN)204 (Given - Provider: Casie Montero RN) 0808 (Given - Provider: Sravani Villarreal RN)2100 (Due) hydrALAZINE (Apresoline) tablet 25 mg 25 mg, oral, 3 times daily, First dose on Sat09/09/23 at 0945 1056 (Given - Provider: Kang Faust RN)1701 (Given - Provider: Kang Faust RN)2030 (Given - Provider: Enriqueta Trent RN) 0820 (Given - Provider: Kang Faust RN)1505 (Given - Provider: Kang Faust RN)2040 (Given - Provider: Casie Montero, SYLVAIN) 0808 (Given - Provider: Sravani Villarreal RN)1500 (Due)2100 (Due) insulin glargine (Lantus) injection 55 Units 55 Units, subcutaneous, Nightly, First dose (after last modification) on Sat09/09/23 at 2045 205 (Given - Provider: Enriqueta Trent RN) 204 (Given - Provider: Casie Montero RN) 2100 (Due) insulin lispro (HumaLOG) injection 0-5 Units 0-5 Units, subcutaneous, 3 times daily (morning, midday, late afternoon), First dose on Sat09/09/23 at 1200, Do not hold when patient is not eating, continue order as scheduled for hyperglycemia management. Insulin Lispro Corrective Scale #1 Hypoglycemia protocol Call LIP unit(s) if Blood Glucose is between 0 - 70 mg/dL 0 unit(s) if Blood glucose is between 71-150 1 unit(s) if Blood glucose is between 151-200 2 unit(s) if Blood glucose is between 201-250 3 unit(s) if Blood glucose is between 251-300 4 unit(s) if Blood glucose is between 301-350 5 unit(s) if Blood glucose is between 351-400 Notify provider unit(s) if Blood Glucose is greater than 400 mg/dL 1200 (Not Given - Provider: Kang Faust RN - Reason: Patient not available)1700 (Not Given - Provider: Kang Faust RN - Reason: Order parameters not met) 0800 (Not Given - Provider: Kang Faust RN - Reason: Order parameters not met)1301 (Given - Provider: Kang Faust RN)1700 (Not Given - Provider: Kang Faust RN - Reason: Patient/family refused) 0800 (Not Given - Provider: Sravani Villarreal RN - Reason: Order parameters not met - Comment: BG 93)1200 (Not Given - Provider: Sravani Villarreal RN - Reason: Patient/family refused - Comment: BG 187, pt states i take insulin at night)1700 (Due) metoprolol succinate XL (Toprol-XL) 24 hr tablet 50 mg 50 mg, oral, Daily, First dose on Sat09/09/23 at 0945, Do not crush or chew. 1056 (Given - Provider: Kang Faust RN) 0819 (Given - Provider: Kang Faust RN) 0808 (Given - Provider: Sravani Villarreal RN) polyethylene glycol (Glycolax, Miralax) packet 17 g 17 g, oral, Daily, First dose on Sat09/09/23 at 0945, Bowel Regimen - for prevention of constipation. 0945 (Not Given - Provider: Kang Faust RN - Reason: Patient/family refused) 0900 (Not Given - Provider: Kang Faust RN - Reason: Patient/family refused) 0900 (Not Given - Provider: Sravani Villarreal RN - Reason: See Provider Order) simvastatin (Zocor) tablet 40 mg 40 mg, oral, Daily, First dose on Sat09/09/23 at 0945 1057 (Given - Provider: Kang Faust RN) 0848 (Given - Provider: Kang Faust RN) 0808 (Given - Provider: Sravani Villarreal RN) [id number] (Draximage MAA) injection 4.4 millicurie (COMPLETED) 4.4 millicurie, intravenous, Once in imaging, Starting on Sat09/10/23 at 0749, For 1 dose, If using for lung perfusion imaging, administer immediately and up to 2 hours prior to imaging unless otherwise indicated. For liver sirtex spheres evaluation, administer 30 minutes and up to 6 hours prior to imaging unless otherwise indicated. 0643 (Given - Provider: Sarah Virk) tiotropium (Spiriva Respimat) 2.5 mcg/actuation inhaler 2 puff(Linked Group 1) 2 puff, inhalation, Daily RT, First dose on Sat09/09/23 at 0945, Label inhaler with 3 month expiration date after inserting canister. 1117 (Given - Provider: Lizeth Shane, ROS) 1044 (Given - Provider: Lizeth Shane, ROS) 0953 (Given - Provider: Lizeth Shane, ROS) venlafaxine XR (Effexor-XR) 24 hr capsule 37.5 mg 37.5 mg, oral, Daily, First dose on Sat09/09/23 at 0945, Capsule may be swallowed whole, or may be opened and its contents sprinkled on applesauce if consumed immediately without chewing. Do not crush or chew. 1056 (Given - Provider: Kang Faust RN) 0820 (Given - Provider: Kang Faust RN) 0808 (Given - Provider: Sravani Villarreal RN) Continuous Medication Order 09/09/2023 09/10/2023 09/11/2023 sodium chloride 0.9% infusion () 100 mL/hr, intravenous, Continuous, Starting on Sat09/09/23 at 1430, For 4 hours 1430 (New Bag - Provider: Nichol Berg RN - Comment: per carlos metcalf NP, NS at 100mL/hr for 4 hours from now.)1654 (Rate/Dose Verify - Provider: Kang Faust RN) sodium chloride 0.9% infusion () 75 mL/hr, intravenous, Continuous, Starting on Sat09/10/23 at 0745, For 12 hours 0820 (New Bag - Provider: Kang Faust RN)1999 (Stopped - Provider: Casie Monteor RN) PRN Medication Order 09/09/2023 09/10/2023 09/11/2023 acetaminophen (Tylenol) tablet 650 mg 650 mg, oral, Every 4 hours PRN, pain mild (1-3), first line, headaches, fever (temp greater than 38.0 C), Starting on Sat09/09/23 at 0920, If ordered PRN for pain, nurse is permitted to administer this medication for higher pain scores based on patient preference? Yes 1508 (Given - Provider: Nichol Berg RN - Comment: hip/knee discomfort, repositioning and tylenol) 0139 (Given - Provider: Enriqueta Trent, SYLVAIN)0819 (Given - Provider: Kang Faust RN) 1039 (Given - Provider: Sravani Villarreal RN) dextrose 50 % injection 12.5 g 12.5 g, intravenous, Every 15 min PRN, For blood glucose 41 to 70 mg/dL, Starting on Sat09/09/23 at 0945, May repeat until blood glucose level reaches 100 mg/dL or greater. Push 2 - 3 mL/minute if patient has secure IV access. fentaNYL PF (Sublimaze) injection (CANCELED) As needed, Starting on Sat09/09/23 at 1307, Intraprocedure 1307 (Given - Provider: Nichol Berg RN - Comment: sedation) glucagon (Glucagen) injection 1 mg 1 mg, intramuscular, Every 15 min PRN, low blood sugar - see comments, For blood glucose less than or equal to 70 mg/dL and no IV access, Starting on Sat09/09/23 at 0945, Give until blood glucose is 100 mg/dL or greater. If patient DOES NOT HAVE secure IV access & patient is unconscious, NPO or is unable to eat or drink. HYDROcodone-acetaminophe n (Stuart) 5-325 mg per tablet 1 tablet 1 tablet, oral, Every 6 hours PRN, pain severe (7-10), first line, Starting on Sat09/10/23 at 0955, If ordered PRN for pain, nurse is permitted to administer this medication for higher pain scores based on patient preference? Yes 1051 (Given - Provider: Kang Faust RN)1834 (Given - Provider: Kang Faust RN) 0034 (Given - Provider: Casie Montero RN) iodixanol (VISIPaque) 320 mg iodine/mL injection (CANCELED) As needed, Starting on Sat09/09/23 at 1329, Intraprocedure 1329 (Given - Provider: Cesar Lucio MD - Comment: opacification) lidocaine (Xylocaine) 20 mg/mL (2 %) injection (CANCELED) As needed, Starting on Sat09/09/23 at 1308, Intraprocedure 1308 (Given - Provider: Cesar Lucio MD - Comment: brachial for numbing)1313 (Given - Provider: Cesar Lucio MD - Comment: right radial for numbing) midazolam (Versed) injection (CANCELED) As needed, Starting on Sat09/09/23 at 1307, Intraprocedure 1307 (Given - Provider: Nichol Berg RN - Comment: sedation) oxygen (O2) therapy inhalation, Continuous PRN - O2/gases, other, PT USES O2 At HS, Starting on Sat09/09/23 at 0919, Device: Nasal Cannula, Rate in liters per minute: 2 LPM, Keep O2 Sat Above: 90% 1123 (Start - Provider: Lizeth Shane RRT)1609 (Rate Change Medical Gas - Provider: Lizeth Shane RRT)1832 (Rate Verify Medical Gas - Provider: Yue Hicks RRT) 0023 (Rate Change Medical Gas - Provider: Yue Hicks RRT)0614 (Rate Verify Medical Gas - Provider: Lizeth Shane RRT)1044 (Rate Verify Medical Gas - Provider: Lizeth Shane RRT)1846 (Start - Provider: Luis Darling RRT) 0620 (Rate Verify Medical Gas - Provider: Robyn Estrada CRTT)0638 (Rate Change Medical Gas - Provider: Robyn Estrada CRTT)0953 (Start - Provider: Lizeth Shane RRT) oxygen (O2) therapy (COMPLETED) Continuous PRN, Starting on Sat09/09/23 at 1315, Intraprocedure 1315 (New Bag - Provider: Nichol Berg RN - Comment: sedation propylaxis) traMADol (Ultram) tablet 50 mg 50 mg, oral, Every 12 hours PRN, pain severe (7-10), first line, pain moderate (4-6), first line, Starting on Sat09/10/23 at 0955, Max of 200 mg daily for patients with CrCrl < 30 mL/min., If ordered PRN for pain, nurse is permitted to administer this medication for higher pain scores based on patient preference? Yes Linked Groups Order Group 1: tiotropium (Spiriva Respimat) 2.5 mcg/actuation inhaler 2 puffJump to med 2 puff, inhalation, Daily RT, First dose on Sat09/09/23 at 0945, Label inhaler with 3 month expiration date after inserting canister. And fluticasone furoate-vilanteroL (Breo Ellipta) 100-25 mcg/dose inhaler 1 puff (CANCELED) 1 puff, inhalation, Daily RT, First dose on Sat09/09/23 at 0945 FOR RECORDS PERTAINING TO PATIENTS WHO ARE [...] BE BASED ON THE PRIMARY CLINICAL RECORDS. [facility]. provides no warranty or guarantee of the accuracy or completeness of information in this document.
--- NOTE | 2024-09-27 02:45 | ED.VIS.CHEST ---
HPI History of Present Illness Chief Complaint: Chest Pain Narrative Narrative: Chief complaint and HPI: Chest pain. 79-year-old female with past medical history of DM2, CKD, HTN, HLD, CHF presents for evaluation of left-sided chest pain. Started approximately 2 hours prior to arrival. Radiated into the left shoulder and into the right side of the chest. This is the opposite of the triage note. Triage note states it radiates to the back however she denies this to me. Endorses it is sharp. She received fentanyl, aspirin, nitro prior to arrival. Pain is worse with inspiration. She denies any fever, chills, URI symptoms, abdominal pain, nausea, vomiting. Family is at bedside and states that the patient has chronic pain. They state that she often complains of bodyaches and chest pain. States she usually gets her care at [facility]. Review of systems: See HPI Medications: As listed on the chart Allergies: As listed on the chart PFSH: Per chart Vital signs: As listed on the chart. Reviewed. Physical exam: Gen: A&O x3, NAD Head: Normocephalic, atraumatic Eyes: No sclera icterus, conjunctiva clear ENT: Moist mucous membranes Neck: Trachea midline, No JVD CV: RRR, no murmurs, no peripheral edema, chest pain nonreproducible, + defibrillator Resp: Lungs CTA BL, no w/r/c GI: Abd soft, non-distended, non-tender, no r/r/g Musc: Full ROM, no deformity Skin: Warm, dry Neuro: Alert, oriented, grossly intact, sensation intact Psych: Cooperative, appropriate mood and affect [facility] Medical History (Updated 09/27/24 @ 06:[address] Sean Araujo, DO) Anxiety Osteoporosis GERD (gastroesophageal reflux disease) On home oxygen therapy Irregular heart beat ICD (implantable cardioverter-defibrillator) in place Congestive heart failure (CHF) Diabetic polyneuropathy COPD (chronic obstructive pulmonary disease) Chronic kidney disease, stage 4 (severe) Essential (primary) hypertension Debility Sleep apnea Diabetes Chronic pain Kidney stones Kidney disease DVT (deep venous thrombosis) Home Medications ?Medication ?Instructions ?Recorded ?Last Taken ?Type simvastatin 40 mg tablet 40 mg PO QHS cholesterol 12/16/12 04/27/24 History melatonin 10 mg sublingual tablet 10 mg PO QHS Insomnia 02/20/18 04/27/24 Rx calcitriol 0.5 mcg capsule 0.5 mcg PO DAILY Supplement 08/09/21 04/27/24 History vit C 226 mg-vit E 90 mg-copper 1 cap PO DAILY Supplement 08/09/21 04/27/24 History 0.8 mg-zinc oxide-lutein 5 mg capsule (PreserVision Lutein) docusate sodium 100 mg capsule 100 mg PO DAILY PRN stool softener 03/30/22 Unknown History furosemide 20 mg tablet 20 mg PO DAILY 03/30/22 04/27/24 History sennosides 8.6 mg capsule (senna) 8.6 mg PO DAILY PRN constipation 03/30/22 Unknown History fluticasone fur. 100 mcg-umeclid 1 inh inhalation DAILY SOB 05/23/22 04/27/24 History 62.5 mcg-vilant 25 mcg inhalat.powder (Trelegy Ellipta) hydralazine 25 mg tablet 25 mg PO TID Blood pressure 01/30/23 04/27/24 History gabapentin 300 mg capsule 300 mg PO Q12H pain 04/28/24 04/27/24 History lidocaine 5 % topical patch 2 patch topical DAILY PRN pain, 04/28/24 Unknown History moderate metoprolol succinate 50 mg 50 mg PO DAILY Blood pressure 04/28/24 04/27/24 History tablet,extended release 24 hr tirzepatide 2.5 mg/0.5 mL See Rx Instructions subcut 04/28/24 04/26/24 History subcutaneous pen injector .COMPLEX Diabetes (Mounjaro) venlafaxine 75 mg capsule,extended 75 mg PO DAILY Depression 04/28/24 04/27/24 History release 24 hr rivaroxaban 10 mg tablet (Xarelto) 10 mg PO DINNER Anticoagulant 26 05/02/24 05/20/24 Rx days #0 tabs acetaminophen 325 mg tablet 325 mg PO ONCE PRN fever or pain 05/12/24 Unknown History (Tylenol) amoxicillin 875 mg-potassium 1 tab PO BID 3 days #7 tabs 05/25/24 Unknown Rx clavulanate 125 mg tablet insulin glargine 100 unit/mL (3 55 unit (0.55 mL) subcut DAILY 05/25/24 04/27/24 07:00 Rx mL) subcutaneous pen (Lantus Diabetes #15 mL Solostar U-100 Insulin) insulin lispro 100 unit/mL See Protocol subcut ACHS #0 mL 05/25/24 Unknown Rx subcutaneous pen (Humalog KwikPen (U-100) Insulin) Allergy/AdvReac Type Severity Reaction Status Date / Time levofloxacin (From Levaquin) Allergy Hives Verified 09/27/24 02:08 Sulfa (Sulfonamide Allergy Hives Verified 09/27/24 02:08 Antibiotics) Opioids - Morphine Analogues AdvReac Intermediate Other Verified 09/27/24 02:08 (narcotics) Family History Sister Breast cancer Other Heart disease Prostate cancer Surgical History History of hip surgery S/P hysterectomy History of appendectomy History of cholecystectomy Social History household members: none number of children: 2 Smoking Status: Former smoker alcohol intake: never substance use type: does not use additional social history: Lives alone in a house in [place] EXAM Physical Exam Const Vital Signs: 09/27/24 02:03 09/27/24 02:03 09/27/24 02:11 Temperature 98.8 F Temperature Source Oral Pulse Rate 105 H Respiratory Rate 20 H Respiratory Effort Short of Breath Blood Pressure 127/75 H Blood Pressure Mean 92 Pulse Ox 97 Oxygen Delivery Method Nasal Cannula Nasal Cannula Oxygen Flow Rate (L/min) 3 09/27/24 02:55 09/27/24 03:30 09/27/24 04:00 Temperature Temperature Source Pulse Rate 98 100 Respiratory Rate 16 19 H Respiratory Effort Blood Pressure 125/76 H 126/69 H Blood Pressure Mean 92 88 Pulse Ox 96 96 Oxygen Delivery Method Nasal Cannula Nasal Cannula Room Air Oxygen Flow Rate (L/min) 2 09/27/24 05:00 09/27/24 05:07 Temperature Temperature Source Pulse Rate 92 Respiratory Rate 18 Respiratory Effort Blood Pressure 119/70 123/58 H Blood Pressure Mean 86 Pulse Ox 96 Oxygen Delivery Method Nasal Cannula Oxygen Flow Rate (L/min) MDM MDM MDM Narrative Medical decision making narrative: 79-year-old female with past medical history of DM2, CKD, HTN, HLD, CHF presents for evaluation of left-sided chest pain. Started approximately 2 hours prior to arrival. Describes it as sharp. Received fentanyl, aspirin, nitro prior to arrival. Pain is worse with inspiration. On chart review, it shows that the patient is on Xarelto however this was compared to her current medication list and patient is not on Xarelto. Differential diagnosis includes but is not limited to pleurisy, PE, myofascial spasm, ACS, electrolyte abnormality, arrhythmia, CHF exacerbation. Patient still endorsing chest pain, nitro ordered. On chart review, I do not have a previous stress test, cardiac catheterization, echocardiogram to review. CBC with mild leukocytosis of 13.2. Patient has baseline anemia with a hemoglobin 11.3. Coagulation panel unremarkable. BMP shows baseline renal insufficiency with a BUN of 46 and creatinine of 2.49. BNP elevated at 17,475. I do believe some of the elevation in her BNP is due to her CKD. Troponins are 47 and 45. Patient's chest pain is more pleuritic in nature without any acute ischemic changes on EKG. However cannot rule out NSTEMI. Her D-dimer is elevated 1.56. Patient cannot have CTA chest secondary to her CKD, cannot rule out PE. Patient will warrant admission for likely VQ mismatch and further cardiac workup. I did interrogate her pacemaker, there were no events. I spoke with the hospitalist service. Hold off on heparin at this time. Patient will be admitted. EKG: Interpreted by me/EM physician: EKG shows sinus tachycardia with a heart rate of 104. Left bundle branch block. No acute ischemic changes. This is similar to EKG in May 2024 Diagnostic: Interpreted by me/EM physician: Chest x-ray shows cardiomegaly with vascular congestion. She has a effusion on the left. This is similar to prior chest x-ray. Radiology in agreement. Impression: 1. Chest pain 2. Elevated troponins, baseline versus NSTEMI 3. Elevated D-dimer, possible PE 4. CHF exacerbation 5. CKD Lab Data Labs: Laboratory Results - last 24 hr 09/27/24 09/27/24 02:22 04:22 WBC 13.2 H RBC 3.70 L Hgb 11.3 L Hct 36.2 L MCV 97.8 MCH 30.5 MCHC 31.2 L RDW Std Deviation 59.4 H RDW Coeff of Yoel 16.3 H Plt Count 188 MPV 9.6 Immature Gran % (Auto) 0.500 Neut % (Auto) 87.1 H Lymph % (Auto) 4.9 L [place] % (Auto) 6.3 Eos % (Auto) 0.8 Baso % (Auto) 0.4 Absolute Neuts (auto) 11.5 H Absolute Lymphs (auto) 0.65 L Nucleated RBC % 0 PT 14.6 INR 1.1 D-Dimer Quant (PE/DVT) 1.56 H* Sodium 134 Potassium 4.3 Chloride 96 L Carbon Dioxide 24.0 Anion Gap 14 BUN 46 H Creatinine 2.49 H Estim Creat Clear Calc 23.65 L Est GFR (MDRD) Non-Af 19 L BUN/Creatinine Ratio 18.6 Glucose 140 H Calcium 9.8 Troponin T High Sens 47 H Troponin T Hi Sens 2 Hr 45 [place] [address] H Radiography Diagnostic Testing: Clinical Impression(s) from Imaging Studies Chest X-Ray 09/27/24 02:20 IMPRESSION: Pulmonary edema. Reading Location: [place] [address] Discharge Plan Triage Chief Complaint: Chest Pain ED Provider: Nain Bell Dx/Rx/DC Orders Prescriptions: No Action acetaminophen [Tylenol] 325 mg tablet 325 mg PO ONCE PRN (Reason: fever or pain) simvastatin 40 MG tablet 40 mg PO QHS Patient Comments: CHOLESTEROL melatonin 10 MG tablet 10 mg PO QHS 0RF calcitriol 0.5 mcg Capsule 0.5 mcg PO DAILY PreserVision Lutein 226 mg-200 unit -0.8 mg-5 mg Capsule 1 cap PO DAILY docusate sodium 100 mg Capsule 100 mg PO DAILY PRN (Reason: stool softener) furosemide 20 mg Tablet 20 mg PO DAILY senna 8.6 mg Capsule 8.6 mg PO DAILY PRN (Reason: constipation) Trelegy Ellipta 100-62.5-25 mcg Blister With Device 1 inh INHALATION DAILY hydralazine 25 mg tablet 25 mg PO TID Mounjaro 2.5 mg/0.5 mL pen injector See Rx Instructions SUBCUT .COMPLEX Rx Instructions: lowest dose subcutaneously; every saturday venlafaxine 75 mg capsule,extended release 24hr 75 mg PO DAILY metoprolol succinate 50 mg tablet extended release 24 hr 50 mg PO DAILY lidocaine 5 % Adhesive Patch,Medicated 2 patch topical DAILY PRN (Reason: pain, moderate) Protocol: *Topical Application Instructions APPLICATION INSTRUCTIONS: Apply to R groin/top of thigh gabapentin 300 mg Capsule 300 mg PO Q12H Xarelto 10 mg Tablet 10 mg PO DINNER 26 Days Qty: 0 0RF amoxicillin-pot clavulanate 875-125 mg tablet 1 tab PO BID 3 Days Qty: 7 0RF insulin lispro [Humalog KwikPen Insulin] 100 unit/mL Insulin Pen See Protocol subcut ACHS Qty: 0 0RF Protocol: 3. Sliding Scale Insulin Med Dosing Condition: 150-189 mg/dl = 1 unit Condition: 190-229 mg/dl = 2 units Condition: 230-269 mg/dl = 3 units Condition: 270-309 mg/dl = 4 units Condition: 310-349 mg/dl = 5 units Condition: 350-399 mg/dl = 6 units Condition: 400-449 mg/dl = 7 units Condition: Greater than 449 call physician Protocol Text: Suggested for: - Patients on Total Daily Insulin Dose of 37-55 units - Obese, infected, or steroid patients MEDIUM DOSING ALGORITHIM insulin glargine [Lantus Solostar U-100 Insulin] 100 UNITS/ML insulin pen 55 unit subcut DAILY Qty: 15 0RF Primary Care Provider: Neel Ng Referrals: Neel Ng MD [Primary Care Provider] - Print Language: Georgian
[2024-09-27 03:39] LABS: Anion Gap 14 (5-15); BUN 46 mg/dL (4-19); BUN/Creat Ratio 18.6 RATIO (10-20); Calcium,Total 9.8 mg/dL (7.6-11.0); Carbon Dioxide 24.0 mmol/L (21.0-32.0); Chloride 96 mmol/L (98-108); Estimated Creatinine Clearance 23.65 ml/min (50-250); Glucose 140 mg/dL (70-99); Potassium 4.3 mmol/L (3.3-5.1); Troponin T High Sensitivity 47 ng/L (<=14)
[2024-09-27 03:58] LABS: Pro- Brain NATRIURETIC PEPTIDE 17475 pg/mL (<=1800)
[2024-09-27] MEDS: Nitroglycerin SL (ED/IMG/CATH) 0.4 MG TABLET SL (05:07)
[2024-09-27 05:25] LABS: D-Dimer Quantitative (DVT/PE) 1.56 FEU/ug/m (0.27-0.49)
[2024-09-27 05:30] LABS: Troponin T High Sens 2 HR 45 ng/L (<=14)
--- NOTE | 2024-09-27 05:45 | HP.PCM.HOS_ITS ---
[facility] - General General Date of Service: 09/27/24 Chief Complaint: Chest pain HPI Narrative VAL ERICKSON, is a 79 F who presented to [facility] ED on 09/27/2024 with chest pain. Medical history significant for chronic HFpEF, CKD stage IV, COPD, type 2 diabetes mellitus, hypertension, hyperlipidemia and depression. Patient lives at home by herself in [place]. Has had the majority of her care at [facility]. She was last hospitalized here in April. She had a fall with right hip fracture requiring intramedullary nail fixation on 04/29. She was discharged to TCU on 05/02. She did require hospitalization again from 05/22 at 05/25 for acute encephalopathy suspected secondary to pneumonia. From there she was discharged to [facility] for further rehab. Patient presents today with chest pain. Patient reports chest pain that started approximately 2 hours prior to arrival that started in the left chest and radiated into the left shoulder and right side of the chest. Pain is worse with inspiration. She received fentanyl, aspirin and nitro prior to arrival with some relief of pain. Son was present with patient and does note that patient has chronic pain at baseline, though this appears to be somewhat more pain than her usual. In the ED she had sinus tachycardia to the low 100s but was otherwise normotensive and hemodynamically stable on room air at rest. CBC with mild leukocytosis but otherwise unremarkable. BMP with creatinine 2.49 which is at baseline as well. D-dimer was elevated at 1.56. Troponin trend 47 > 45[place] [address]. Chest x-ray showed cardiomegaly with pulmonary edema. CTA chest could not be done due to her chronic kidney disease. Given concern for possible PE and CHF exacerbation, hospitalist was contacted for admission. I saw the patient at bedside in the ED, son was present. Patient was laying back in bed, breathing comfortably and in no acute distress. She was reporting ongoing pain in her chest, though she does appear comfortable at rest. She denies any shortness of breath currently. Denies any lower extremity pain or swelling. No other acute concerns currently. Will be admitted for further management. [facility] Medical History (Updated 09/27/24 @ 06:[address] Sean Araujo, ) Anxiety Osteoporosis GERD (gastroesophageal reflux disease) On home oxygen therapy Irregular heart beat ICD (implantable cardioverter-defibrillator) in place Congestive heart failure (CHF) Diabetic polyneuropathy COPD (chronic obstructive pulmonary disease) Chronic kidney disease, stage 4 (severe) Essential (primary) hypertension Debility Sleep apnea Diabetes Chronic pain Kidney stones Kidney disease DVT (deep venous thrombosis) Home Medications ?Medication ?Instructions ?Recorded ?Last Taken ?Type simvastatin 40 mg tablet 40 mg PO QHS cholesterol 03/3004/27/24 History melatonin 10 mg sublingual tablet 10 mg PO QHS Insomni a 02/20/18 04/27/24 Rx calcitriol 0.5 mcg capsule 0.5 mcg PO DAILY Supplement 08/09/21 04/27/24 History vit C 226 mg-vit E 90 mg-copper 1 cap PO DAILY Supplem ent 08/09/21 04/27/24 History 0.8 mg-zinc oxide-lutein 5 mg capsule (PreserVision Lutein) docusate sodium 100 mg capsule 100 mg PO DAILY PRN sto ol softener 03/30/22 Unknown History furosemide 20 mg tablet 20 mg PO DAILY 03/30/2204/18 History sennosides 8.6 mg capsule (senna) 8.6 mg PO DAILY PRN constipation 03/30/22 Unknown History fluticasone fur. 100 mcg-umeclid 1 inh inhalation AC Y SOB 05/23/22 04/27/24 History 62.5 mcg-vilant 25 mcg inhalat.powder (Trelegy Ellipta) hydralazine 25 mg tablet 25 mg PO TID Blood pressure 01/30/23 04/27/24 History gabapentin 300 mg capsule 300 mg PO Q12H pain 04/28/24 04/27/24 History lidocaine 5 % topical patch 2 patch topical DAILY PRN pain, 04/28/24 Unknown History moderate metoprolol succinate 50 mg 50 mg PO DAILY Blood pressu re 04/28/24 04/27/24 History tablet,extended release 24 hr tirzepatide 2.5 mg/0.5 mL See Rx Instructions subcut 0 04/28/24 04/26/24 History subcutaneous pen injector .COMPLEX Diabetes (Mounjaro) venlafaxine 75 mg capsule,extended 75 mg PO DAILY Depr ession 04/28/24 04/27/24 History release 24 hr rivaroxaban 10 mg tablet (Xarelto) 10 mg PO DINNER Ant icoagulant 26 05/02/24 05/20/24 Rx days #0 tabs acetaminophen 325 mg tablet 325 mg PO ONCE PRN fever o r pain 05/12/24 Unknown History (Tylenol) amoxicillin 875 mg-potassium 1 tab PO BID 3 days #7 ta bs 05/25/24 Unknown Rx clavulanate 125 mg tablet insulin glargine 100 unit/mL (3 55 unit (0.55 mL) subc ut DAILY 05/25/24 04/27/24 07:00 Rx mL) subcutaneous pen (Lantus Diabetes #15 mL Solostar U-100 Insulin) insulin lispro 100 unit/mL See Protocol subcut ACHS #0 mL 05/25/24 Unknown Rx subcutaneous pen (Humalog KwikPen (U-100) Insulin) Allergy/AdvReac Type Severity Reaction Status Date / Time levofloxacin (From Levaquin) Allergy Hives Verified 09/27/24 02:08 Sulfa (Sulfonamide Allergy Hives Verified 09/27/24 02:08 Antibiotics) Opioids - Morphine Analogues AdvReac Intermediate Other Verified 09/27/24 02:08 (narcotics) Family History Sister Breast cancer Other Heart disease Prostate cancer Surgical History History of hip surgery S/P hysterectomy History of appendectomy History of cholecystectomy Social History household members: none number of children: 2 Smoking Status: Former smoker alcohol intake: never substance use type: does not use additional social history: Lives alone in a house in [facility] Constitutional Constitutional: Reports fatigue; Denies chills, fever(s) or weakness Eyes Eyes: Denies change in vision Cardiovascular Cardiovascular: Reports chest pain and dyspnea on exertion; Denies edema, lightheadedness or palpitations Respiratory/Chest Respiratory/Chest: Reports shortness of breath at rest and shortness of breath with exertion; Denies cough or wheezing Gastrointestinal Gastrointestinal: Denies abdominal pain Musculoskeletal Musculoskeletal: Denies arthralgias or myalgias Vital Signs Vital Signs Vital Signs: 09/27/24 02:03 09/27/24 02:03 09/27/24 02:11 Temperature 98.8 F Temperature Source Oral Pulse Rate 105 H Respiratory Rate 20 H Respiratory Effort Short of Breath Blood Pressure 127/75 H Blood Pressure Mean 92 Pulse Ox 97 Oxygen Delivery Method Nasal Cannula Nasal Cannula Oxygen Flow Rate (L/min) 3 09/27/24 02:55 09/27/24 03:30 09/27/24 04:00 Temperature Temperature Source Pulse Rate 98 100 Respiratory Rate 16 19 H Respiratory Effort Blood Pressure 125/76 H 126/69 H Blood Pressure Mean 92 88 Pulse Ox 96 96 Oxygen Delivery Method Nasal Cannula Nasal Cannula Room Air Oxygen Flow Rate (L/min) 2 09/27/24 05:00 09/27/24 05:07 Temperature Temperature Source Pulse Rate 92 Respiratory Rate 18 Respiratory Effort Blood Pressure 119/70 123/58 H Blood Pressure Mean 86 Pulse Ox 96 Oxygen Delivery Method Nasal Cannula Oxygen Flow Rate (L/min) Weight Weight: 132.7 kg Body Mass Index (BMI) 53.5 Physical Exam Const alert, oriented x3 and no apparent distress Constitutional Narrative: Elderly female, class III obesity, fatigued and chronically ill-appearing, otherwise sitting back fairly comfortably in bed, conversing normally, in no acute distress. General Appearance: cooperative and comfortable HEENT normocephalic, head/scalp atraumatic, hearing grossly normal bilaterally, nasal mucous membranes and turbinates normal and moist oral mucous membranes Eyes PERRL, EOMs intact bilaterally and conjunctivae normal Neck full ROM Chest inspection of chest normal Resp normal respiratory effort and no use of accessory muscles Resp Narrative: Breathing comfortably on room air at rest. Diminished breath sounds noted in bilateral lung bases with mild crackles noted in mid lung zones bilaterally. No wheezing noted. Cardio no murmurs and peripheral pulses 2+ throughout Cardio Narrative: Tachycardic, regular rhythm. GI normal to inspection, nondistended, normoactive bowel sounds, soft to palpation, non-tender and non-distended Back/Spine normal ROM Extremity Extremity Narrative: +1-2 lower extremity pitting edema noted bilaterally. No erythema or swelling noted. Skin no rashes or lesions noted Psych mental status grossly normal Results Lab / Micro Data 09/27/24 02:22 09/27/24 02:22 Labs: Laboratory Results - last 24 hr 09/27/24 02:22: WBC 13.2 H, RBC 3.70 L, Hgb 11.3 L, Hct 36.2 L, MCV 97.8, MCH 30.5, MCHC 31.2 L, RDW Std Deviation 59.4 H, RDW Coeff of Yoel 16.3 H, Plt Count 188, MPV 9.6, Immature Gran % (Auto) 0.500, Neut % (Auto) 87.1 H, Lymph % (Auto) 4.9 L, [place] % (Auto) 6.3, Eos % (Auto) 0.8, Baso % (Auto) 0.4, Absolute Neuts (auto) 11.5 H, Absolute Lymphs (auto) 0.65 L, Nucleated RBC % 0, PT 14.6, INR 1.1, D-Dimer Quant (PE/DVT) 1.56 H*, Sodium 134, Potassium 4.3, Chloride 96 L, Carbon Dioxide 24.0, Anion Gap 14, BUN 46 H, Creatinine 2.49 H, Estim Creat Clear Calc 23.65 L, Est GFR (MDRD) Non-Af 19 L, BUN/Creatinine Ratio 18.6, G lucose 140 H, Calcium 9.8, Troponin T High Sens 47 H, [place] [address] H 09/27/24 04:22: Troponin T Hi Sens 2 Hr 45 H Imaging Radiology Impression Chest X-Ray 09/27/24 02:20 IMPRESSION: Pulmonary edema. Reading Location: [place] [address] Assessment & Plan Assessment/Plan (1) Chest pain: (2) Acute on chronic heart failure with preserved ejection fraction (HFpEF): PLAN: Plan Patient is an 79-year-old female who presented to [facility] ED on 09/27/2024 with chest pain. 1. Chest pain with mild acute on chronic HFpEF and concern for PE ? Admit under observation status to PCU. Presented with reported pleuritic chest pain. Troponin trend 47 > 45, NT proBNP 17,000. Chest x-ray with vascular congestion noted. D-dimer elevated. Cannot obtain CTA chest given CKD stage IV as below. Notably was on prophylactic Xarelto after repair of right hip fracture in April but is not on a blood thinner now. VQ scan, lower extremity duplex ultrasound and echo ordered for further evaluation. Will treat with 2 doses of IV Lasix 40 mg today and monitor BMP and urine output. Heparin subcu for DVT prophylaxis. Continue home empagliflozin. 2. Acute on chronic debility with recent history of right hip fracture ? PT/OT/case management consulted. Patient lives at home alone. Had right hip fracture in April requiring SNF placement. Appears fairly weak and debilitated on admit. Appreciate therapy recommendations. 3. Chronic pain syndrome with depression ? Family notes that patient has reported significant pain during previous hospitalizations leading to overmedication with opiates and altered mentation for the patient. They note that this is primarily chronic pain and she only takes Tylenol at home for this. Would limit pain medications as able during this hospitalization. Continue home venlafaxine and melatonin at night. Chronic medical conditions: ? Class III obesity: BMI 53 on admit. Complicates hospital course, care and prognosis. ? Type 2 diabetes mellitus with diabetic neuropathy: Will start insulin regimen once med rec is completed. ? CKD stage IV: Creatinine 2.49 on admit, at baseline. Monitor daily BMP and urine output as above. ? Hypertension/hyperlipidemia: Med rec pending but will plan to continue home medications. ? COPD: Continue home inhalers. DVT prophylaxis: Heparin subcu CODE STATUS: DNR CCA, DNI Expected disposition: TBD Total clinical time spent by myself addressing the patient's medical issues, reviewing all the data, and collaborating with patient's care team: 75 minutes. Charges/Coding Visit Charges Inpatient E&M: 71670 Init Hosp L3
--- NOTE | 2024-09-27 06:29 | VDLE_ITS ---
Reason For Study : Shortness of breath RIGHT LEFT CFV is compressible, spontaneous, phasic, competent, CFV is compressible, spontaneous, phasic, competent, and demonstrates normal augmentation. and demonstrates normal augmentation. FV is compressible, spontaneous, phasic, competent FV is compressible, spontaneous, phasic, competent and demonstrates normal augmentation. and demonstrates normal augmentation. FV mid-distal visualized with color only, appear FV mid-distal visualized with color only, appear patent. Patient unable to tolerate compression. patent. Patient unable to tolerate compression. POP V is compressible, spontaneous, phasic, competent POP V is compressible, spontaneous, phasic, competent and demonstrates normal augmentation. and demonstrates normal augmentation. T/P Trunk is compressible. T/P Trunk is compressible. PTV is compressible. PTV is compressible. PerV is compressible. PerV is compressible. GSV is absent. GSV is absent. Procedure This is a venous duplex using B-mode, color flow and spectral Doppler. Exam performed portable in patient room. Calf veins technically difficult to visualize bilaterally due to edema. A preliminary report was called and/or faxed to [facility]. VL/Venous Duplex US - Alphonse Extrem Interpretation Summary Deep veins of the bilateral lower extremities are patent and compressible segme ntally. There is no evidence of bilateral lower extremity deep vein thrombosis. Limited study due to patient tolerance. Ordering Physician: Sean Araujo Referring Physician: Neel Ng M.D. Performed By: Chantell Albert RVT
--- NOTE | 2024-09-27 06:29 | ECHOCS_ITS ---
Reason For Study Reason For Study: Chest Pain Procedure This was a 2D Doppler, Color Flow transthoracic echocardiogram. The study was technically difficult. Contrast injection was performed. Exam performed portable in patient room. Left Ventricle Moderately dilated left ventricular cavity. Severe generalized LV hypokinesis. Estimated LVEF 30%. Stage II diastolic dysfunction. Normal left ventricular thickness. Right Ventricle Moderate to severe RV systolic dysfunction. Atria There is severe biatrial dilatation. ICD or pacer leads identified within the right atrium. Mitral Valve Mild (1+) mitral valve insufficiency. Tricuspid Valve Mild to moderate (1-2+) tricuspid valve insufficiency. Right ventricular systolic pressure estimated to be 40 mmHg. Aortic Valve Trisinus/trileaflet aortic valve. Pulmonic Valve The pulmonic valve is not well visualized. Great Vessels Normal sized aortic root. Pericardium/Pleural Trivial pericardial effusion. Small left pleural effusion. Medication Diluted definity 1ml given slow IV push to enhance endocardial definition. MMode/2D Measurements & Calculations LVIDd: 6.4 cm IVSd: 0.87 cm Ao root diam: 3.7 cm LVIDs: 5.9 cm LVPWd: 1.1 cm RVDd: 5.5 cm FS: 8.1 % LAV(MOD-bp): 90.8 ml LVAd ap4: 47.8 cm2 SV(MOD-sp4): 57.9 ml LAV(MOD-bp) Indexed: 40.4 ml/m2 LVLd ap4: 8.7 cm SI(MOD-sp4): 25.8 ml/m2 LAV(MOD-sp2): 91.1 ml EDV(MOD-sp4): 213.6 ml LAV(MOD-sp4): 87.6 ml EDV(sp4-el): 224.2 ml LVAs ap4: 38.5 cm2 LVLs ap4: 7.7 cm ESV(MOD-sp4): 155.7 ml ESV(sp4-el): 163.2 ml EF(MOD-sp4): 27.1 % EF(sp4-el): 27.2 % SV(sp4-el): 61.0 ml LA A4 area: 27.3 cm2 LA dimension(2D): 4.8 cm RA A4 area: 26.6 cm2 TAPSE: 2.0 cm Doppler Measurements & Calculations MV E max salas: 104.7 cm/sec Lat Peak E' Salas: 13.4 cm/sec Med Peak E' Salas: 6.3 cm/sec E/E' lat: 7.8 E/E' med: 16.5 MV V2 max: 123.8 cm/sec Ao V2 max: 135.1 cm/sec LV V1 max: 68.0 cm/sec MV max P.1 mmHg Ao max P.3 mmHg LV V1 max P.8 mmHg MV V2 mean: 73.8 cm/sec Ao V2 mean: 96.3 cm/sec LV V1 mean P.1 mmHg MV mean P.7 mmHg Ao mean P.3 mmHg LV V1 mean: 48.3 cm/sec MV V2 VTI: 27.0 cm Ao V2 VTI: 23.6 cm LV V1 VTI: 12.8 cm AV (velocity ratio): 0.54 MR max salas: 457.5 cm/sec PA V2 max: 92.8 cm/sec TR max salas: 294.2 cm/sec MR max P.7 mmHg PA V2 mean: 60.4 cm/sec TR max P.6 mmHg MR mean salas: 304.0 cm/sec MR mean P.8 mmHg MR VTI: 123.0 cm ECHO/Echo Complete W/ Contrast Interpretation Summary Moderately dilated left ventricular cavity. Severe generalized LV hypokinesis. Estimated LVEF 30%. Stage II diastolic dysfunction. Moderate to severe RV systolic dysfunction. Mild (1+) mitral valve insufficiency. Mild to moderate (1-2+) tricuspid valve insufficiency. Right ventricular systolic pressure estimated to be 40 mmHg. Small left pleural effusion. Ordering Physician: Sean Araujo Performed By: Nain Ye RCS
--- NOTE | 2024-09-27 06:58 | PN.HOSP_ITS ---
Reason for Visit Reason for Visit: Diagnoses Acute on chronic diastolic (congestive) heart failure (09/27/24) Chest pain, unspecified (09/27/24) Subjective Subjective Patient upon evaluation this a.m. recently transitioned from being admitted from the ED to PCU with complaint of midsternal chest discomfort described as pressure, EKG obtained with no acute evidence of ischemia. Patient notes feeling fatigued and weak and does report ongoing dyspnea sensation. Noted plan for continued diuresis. Patient denies fevers, chills, nausea, emesis, abdominal pain, chest pain or dyspnea. Objective Data Objective Data Vital Signs: Vital Signs Temp Pulse Resp BP Pulse Ox O2 Del Method O2 Flow Rate 98.8 F 92 18 123/58 H 96 Nasal Cannula 2 09/27/24 02:03 09/27/24 05:00 09/27/24 05:00 09/27/24 05:07 09/27/24 05:00 09/27/24 05:00 09/27/24 03:30 Oxygen Flow Rate (L/min) 2 Oxygen Delivery Method Nasal Cannula Weight: 292 lb 8.854 oz Body Mass Index (BMI) 53.5 Intake & Output: Intake and Output for Last 24 Hours 09/25/24 09/26/24 09/27/24 23:59 23:59 23:59 Intake Total 0 / 0 Balance 0 / 0 Lab / Micro Data 09/27/24 02:22 09/27/24 02:22 Labs: Laboratory Results - last 24 hr 09/27/24 02:22: WBC 13.2 H, RBC 3.70 L, Hgb 11.3 L, Hct 36.2 L, MCV 97.8, MCH 30.5, MCHC 31.2 L, RDW Std Deviation 59.4 H, RDW Coeff of Yoel 16.3 H, Plt Count 188, MPV 9.6, Immature Gran % (Auto) 0.500, Neut % (Auto) 87.1 H, Lymph % (Auto) 4.9 L, [place] % (Auto) 6.3, Eos % (Auto) 0.8, Baso % (Auto) 0.4, Absolute Neuts (auto) 11.5 H, Absolute Lymphs (auto) 0.65 L, Nucleated RBC % 0, PT 14.6, INR 1.1, D-Dimer Quant (PE/DVT) 1.56 H*, Sodium 134, Potassium 4.3, Chloride 96 L, Carbon Dioxide 24.0, Anion Gap 14, BUN 46 H, Creatinine 2.49 H, Estim Creat Clear Calc 23.65 L, Est GFR (MDRD) Non-Af 19 L, BUN/Creatinine Ratio 18.6, G lucose 140 H, Calcium 9.8, Troponin T High Sens 47 H, [place] [address] H 09/27/24 04:22: Troponin T Hi Sens 2 Hr 45 H Radiography Diagnostic Testing: Radiology Impression Chest X-Ray 09/27/24 02:20 IMPRESSION: Pulmonary edema. Reading Location: [place] [id number] Physical Exam Narrative Physical Examination: General: Awake, alert, oriented x 3 and cooperative, recently transition from the ED to PCU, reporting midsternal and left-sided chest discomfort, fatigued and appears mildly dyspneic. Skin: Normal color, normal turgor, no icterus, no cyanosis except for occasional stage ecchymoses, abrasion, intertrigo in the folds as well as significant bilateral lower extremity stasis skin changes and mild lichenification. HEENT: AT/NC, EOMI, PERRLA, mildly dry MM. Lungs: Mildly diminished, very distant likely secondary to habitus, mildly increased respiratory rate but undistressed, unable to appreciate any rales, rhonchi or wheezing. Heart: Regular rate and rhythm; no gallop, rub audible. Abdomen: Soft, morbidly obese, no obvious tenderness to palpation, distant BS, difficult to discern distention given habitus. Extremities: No cyanosis, no clubbing, significant pedal to proximal bilateral lower extremity 3+ pitting edema. Neurological: Patient awake, alert, oriented as noted, cognitive function intact; pupils equally reactive to light and accommodation, cranial nerves grossly normal, moving all 4 extremities, no focal deficits, strength severely globally decreased Psychiatric: Affect appears fatigued, uncomfortable, anxious appearing, does have underlying anxiety and depression. Assessment & Plan Assessment/Plan (1) Chest pain: (2) Acute on chronic heart failure with preserved ejection fraction (HFpEF): PLAN: Plan The patient is an 79 y/o F w/ PMHx: Chronic anemia, HFpEF, HTN, HLD, CKD stage V, Chronic pain syndrome, Anxiety and Depression, COPD, Morbid obesity, Diabetes mellitus type II with chronic neuropathy, B[place] using 2L NC q HS, Hx VTE, vague chart report of cardiac arrhythmia status post AICD per chart history who presents to the [facility] ED on 09/27/[facility]24 with complaint of left-sided chest discomfort starting approximately 2 hours prior to ED arrival in addition to dyspnea. #1. Acute chest pain with mild stable indeterminate cardiac enzymes of unclear significance with concern for possible VTE/PE in addition to acute on chronic HFpEF exacerbation: Admitted to PCU, maintained on the monitor, cardiac enzyme trending remained stable with troponin initial- 47-> 45-> 47, magnesium 2.1, NT proBNP 70,004 and 75, EKG with sinus rhythm with no acute evidence of ischemia, chest x-ray with vascular congestion, given renal function unable to perform CTPA with plan for VQ scan, in the interim we will request duplex of the lower extremities, echocardiogram quested, will continue Lasix 40 mg IV twice daily diuresis, monitor I's and O's, echocardiogram requested, TSH requested, FLP in AM, will place cog mary wraps to bilateral lower extremities with elevation as able. Verified that patient had only been on Xarelto for short-term suspected secondary following intervention, will currently maintain on heparin prophylaxis only however if duplex is positive obviously transition to anticoagulant. Continue home Jardiance regimen. PRN SL NG, dilaudid low dose given renal function. PT/OT/case management consult for discharge planning. #2. Debility, adult failure to thrive complicated by recent history of hip fracture previously 04/2024 requiring skilled facility placement that time: Eventually transition to home, living alone, very debilitated and weak, PT/OT/casement consulted as likely will need skilled facility transition. #3. Chronic COPD with chronic hypoxic respiratory failure 2 L NC nightly: Will continue supplemental oxygen nightly and during the day as needed given #1 with de-escalation as able, will temporally hold home inhalers in the interim placed on ATC budesonide therapy, PRN albuterol, HOB, IS parameters. #4. Chronic pain syndrome: Per admitting physician from family report patient with significant pain during previous hospitalization with eventual significant opiate usage and altered mentation, will attempt to limit pain medication and utilize short acting agents as able. #5. Chronic Kidney Disease Stage V: Admission BUN/Cr 46/2.49, GFR 19, baseline renal function more recently 2.2-2.6, increased since 05/2024, encourage continued follow-up with nephrology as previously arranged, continue to trend. Will need to renally dose/hold medications as needed. #6. Anemia, appears normocytic, chronic: Admission hemoglobin 11.3, MCV 97.8, baseline hemoglobin appears more recently 10-11 range but previous to this has vacillated between 8 and 9, will continue to trend. #7. Diabetes mellitus type II with chronic neuropathy: Hold oral home regimen, continue home insulin regimen, ADA diet, accu checks w/ ISS, continue home gabapentin regimen. #8. Hypertension: Continue home regimen including metoprolol, PRN hydralazine. #9. Hyperlipidemia: Continue home statin regimen. AM FLP. #10. Anxiety and depression: Will continue patient on venlafaxine, buspirone and melatonin regimen. #11. Morbid Obesity: Weight loss and lifestyle changes encouraged. #12. DVT prophylaxis: Heparin chemoprophylaxis. #13. CODE STATUS: DNR-CCA, no intubation. Charges/Coding Procedures Hospitalists Procedures: Other Procedure - See Report (Billing Code: 23544, non billable code, admit same day.)
--- OUTSIDE RECORDS SUMMARY | 2024-09-27 08:47 | XMS RPT_ITS | CCD ---
Author Organization [facility] Care Team Providers Care Nursing Home Director Name Role Phone Gregory Villanueva Unavailable TanAdelaAnum [...] Dr. Neel Ordonez Primary Care Unavailable Paneccasio [facility], Tessa Unavailable [phone] Hailee NARAYAN, Annalisa Unavailable Neel Turpin MD Primary Care Provider Ravi NARAYAN, Malissa Blackmon Unavailable Hailee NARAYAN, Annalisa Unavailable Ravi NARAYAN, Malissa Blackmon Unavailable Tyra VILLAGOMEZ.JERRY, Kacy M Unavailable NEEL TURPIN Primary Care Unavailable JOSHDATATE VGARRETTRELSIE [...] (1 source) levoFLOXacin Drug Allergy 12-30-19 05 [facility] Work Phone: semaglutide (1 source) semaglutide Drug Allergy 07-10-19 24 Intolerance [facility] Work Phone: Sulfonamides (antibiotic) (1 source) Sulfonamides (Antibiotic) Drug Allergy 12-30-19 05 [facility] (19 sources) Sulfonamides (Antibiotic); Translations: [sulfa] drug allergy [facility] Work Phone: (20 sources) levoFLOXacin; Translations: [Levaquin TABS] Drug Allergy 12-30-19 05 Rash [facility] Work Phone: (20 sources) Sulfonamides (Antibiotic); Translations: [SULFA (SULFONAMIDE ANTIBIOTICS)] Allergy to substance 12-30-19 05 Hives [facility] Work Phone: (20 sources) Seasonal allergy; Translations: [SEASONAL ALLERGIES] Allergy to substance 08-20-19 15 Other: See Comments [facility] (1 source) Sulfacetamide Drug Allergy Rash [facility] (2 sources) levoFLOXacin; Translations: [Levaquin TABS] Drug Allergy [facility]-Tkstpdbcti-V [facility] [address] Work Phone: (19 sources) Sulfacetamide; Translations: [SULFACETAMIDE SODIUM] Drug Allergy 11-26-19 23 Rash [facility] Work Phone: (20 sources) semaglutide; Translations: [SEMAGLUTIDE] Drug Allergy 07-10-19 24 Intolerance [facility] Work Phone: (1 source) levoFLOXacin Drug Allergy 05-12-19 [facility] (1 source) Opioids - Morphine Analogues Drug allergy (disorder) 05-12-19 [facility] Medications Current Medications Medication Drug [...] capsule by mouth once daily Vit C-Vit U-Hharaw-XlVu-Lut ein (PRESERVISION LUTEIN) 226 mg-200 unit -5 mg-0.8 mg cap Take 1 capsule by mouth once daily. 08/10/2020 Active Comment on above: Take 1 capsule by [facility] once daily. budesonide 0.25 mg/ml inhalation suspension [...] 10-23-2016 CALCITRIOL 0.2 5 MCG CAPS CALCITRIOL [id number] Johana Kovacs Comment on above: Take 1 capsule by [facility] once daily. Take 1 capsule by [facility]. Taking three times a week Take 0.5 mcg [facility]. calcium carbonate 1250 mg / cholecalciferol 1000 [...] on above: Take 1 capsule by [facility]. Take 1 capsule by [facility] as needed. docusate sodium 50 mg / sennosides, chcf 8.6 mg oral tablet (20 sources) Start: [...] tablet by mouth once daily. Prescribed by inspector fabric 09/23/2023 Active 0.3 ml enoxaparin sodium 100 mg/ml prefilled syringe (20 sources) Low Molecular Weight Heparin Start: 09-09-19 30 mg, subcutaneous, Daily, First dose on Sat09/09/23 at 0945, Renally adjusted for CrCl ~26 mL/min Start: 01-27-2018 End: 01-27-2018 Enoxaparin Discontinued 30 M G SC DAILY January 27, 2018 1:00am January 27, 2018 4:44pm 1 ml epoetin zari 60368 unt/ml injection (20 sources) Erythropoiesis-stimulating Agent Start: 01-27-2018 End: 01-27-2018 Epoetin Zari (Epogen) 10,000 UNIT/ML solution Active 12785 UNIT SC EVERY MONTH January 27, 2018 3:44pm Start: 01-01-2018 epoetin zari ( PROCRIT,EPOGEN) 10,000 unit/mL injection Inject 10,000 Units subcutaneously q 4 WEEKS. 12,000 Units every two weeks. 0 01/01/2018 Active Start: 10-23-2016 PROCRIT 36554 UNIT/ML SOLN EPOETIN ZARI [id number] Johana Kovacs Start: 10-23-2016 PROCRIT 19654 UNIT/ML SOLN EPOETIN ZARI [id number] Johana Kovacs Start: 10-23-2016 PROCRIT 43948 UNIT/ML SOLN EPOETIN ZARI [id number] Johana De La Garza Kovacs Start: 12-16-2013 End: 01-27-2018 Epoetin Zari (Epogen) 10,000 UNIT/ML Ml Discontinued 68260 UNIT SC EVERY MONTH December 16, 2013 12:00am January 27, 2018 12:52pm epoetin zari (Ep ogen) 10,000 unit/mL injection Inject 1.3 mL (13,000 Units) under the skin see administration instructions. EVERY 28 DAYS Active Epogen 86601 UNI T/ML Injection Solution INJECT SUBCUTANEOUSLY DIRECTED. [...] LANTUS 100 UNI T/ML SOLN INSULIN GLARGINE [id number] Johana Kovacs Start: 10-23-2016 LANTUS 100 UNI T/ML SOLN INSULIN GLARGINE [id number] Johana De La Garza Kovacs Start: 10-23-2016 LANTUS 100 UNI T/ML SOLN INSULIN GLARGINE [id number] Johana De La Garza Bethanie Start: 12-16-2012 [...] O2 Sat Above: 90% polyethylene glycol 3350 85449 mg powder for oral solution (20 sources) [...] on above: Take 2 tablets by [facility] once daily for 5 days. sennosides, chcf 8.6 mg oral capsule (20 sources) Start: [...] Comment on above: Take 1 capsule by [facility] once daily. Completed/Discontinued Medications Medication Drug Class(es) [...] BACLOFEN 10 MG TABS twice daily BACLOFEN [id number] Johana Kovacs beta carotene 76682 unt oral capsule (4 sources) Start: 10-23-2016 BETA CAROTENE 74222 UNIT CAPS BETA CAROTENE [id number] Johana Kovacs bifidobacterium animalis [id number] unt / lactobacillus acidophilus [id number] unt oral capsule (9 sources) End: 06-27-2022 [...] 1 MG TABS 4 tabs daily GLIMEPIRIDE [id number] Johana Kovacs Comment on above: TAKE 1 [...] MG T ABS twice daily LOSARTAN POTASSIUM [id number] Johana Kovacs Start: 12-16-2012 End: 02-20-2018 take [...] H CL 45 MG TABS PIOGLITAZONE HCL [id number] Johana M Bethanie Start: 12-16-2012 take 30 [...] on Sat09/09/23 at 1430, For 4 hours Zr-12x-woeyvwc (Draximage MAA) injection 4.4 millicurie (1 source) [...] source) Long-term current use of insulin; Translations: [compensation manager (current) use of insulin] 10-10-2022 Episodic Other [...] 09-11-2023 06-01-2010 Episodic Other aftercare (5 sources) detention (current) use of insulin; Translations: [compensation manager (current) use of insulin] Onset: 01-03-2015 Episodic [...] 6.9 % Abnormal 4.3 - 5.6 % [facility] Comment on above: Location:[address], [address] Point of care (POC) Hemoglobin A1c (HGBA1C) [...] specific diabetes management situations: The POC device tool clerk provides a normal range of 4.2% to 6.5% for the HGBA1C POC test. However, the [place] [employer] guidelines indicate that patients with [...] Interpretation and review of laboratory results Abnormal [facility] HH, Hemoglobin AND Hematocri ton 09-16-2024 Hematocrit (Bld) [Volume fraction] 34.7 % Low 37-47 [facility] Comment on above: Performed By: #### L 500.3600, L100.0600 ####[facility] [address] [place], [address] Hemoglobin (Bld) [Mass/Vol] 11.1 g/dL Low 12.0-15.0 [facility] Comment on above: Performed By: #### L 500.3600, L100.0600 ####[facility] [address] [place], [address] Renal Profileon 09-16-2024 Albumin [Mass/Vol] 3.8 g/dL Normal 3.4-4.8 [facility] Comment on above: Performed By: #### L 500.3600, L100.0600 ####[facility] [address] [place], [address] BUN/CRE 20.5 RATIO High 10-20 [facility] Comment on above: Performed By: #### L 500.3600, L100.0600 ####[facility] [address] [place], [address] Calcium [Mass/Vol] 9.4 mg/dL Normal 7.6-11.0 [facility] Comment on above: Performed By: #### L 500.3600, L100.0600 ####[facility] [address] [place], [address] Chloride [Moles/Vol] 94 mmol/L Low 98-108 [facility] Comment on above: Performed By: #### L 500.3600, L100.0600 ####[facility] [address] [place], [address] CO2 [Moles/Vol] 24.1 mmol/L Normal 21.0-32.0 [facility] Comment on above: Performed By: #### L 500.3600, L100.0600 ####[facility] [address] [place], [address] Creatinine [Mass/Vol] 2.57 mg/dL High 0.70-1.20 [facility] Comment on above: Performed By: #### L 500.3600, L100.0600 ####[facility] [address] [place], [address] GAP 16 High 5-15 [facility] Comment on above: Performed By: #### L 500.3600, L100.0600 ####[facility] [address] [place], [address] GFR/1.73 sq M.predicted among non-blacks MDRD (S/P/Bld) [Vol rate/Area] 18 mL/min/{1.73_m2} Low >60 [facility] Comment on above: Result Comment: mL/m in/1.73m2 CKD-EPI Creatinine Equation (2020) Performed By: #### L 500.3600, L100.0600 ####[facility] [address] [place], [address] Glucose [Mass/Vol] 144 mg/dL High 70-99 [facility] Comment on above: Performed By: #### L 500.3600, L100.0600 ####[facility] [address] [place], [address] Phosphate [Mass/Vol] 5.0 mg/dL High 2.7-4.5 [facility] Comment on above: Performed By: #### L 500.3600, L100.0600 ####[facility] [address] [place], [address] Potassium [Moles/Vol] 4.3 mmol/L Normal 3.3-5.1 [facility] Comment on above: Performed By: #### L 500.3600, L100.0600 ####[facility] [address] [place], [address] Sodium [Moles/Vol] 134 mmol/L Normal 133-145 [facility] Comment on above: Performed By: #### L 500.3600, L100.0600 ####[facility] [address] [place], [address] Urea nitrogen [Mass/Vol] 53 mg/dL High 4-19 [facility] Comment on above: Performed By: #### L 500.3600, L100.0600 ####[facility] [address] [place], [address] CNPNon 09-11-2024 [facility] Telephone (INTMWS) -------- VAL ERICKSON ([id number]) 1945 F Date Time Provider Department 09/11/24 [...] Date Reviewed: 08/19/2024 Reviewed by: Tessa Brock, [facility] - Fully Assessed Prescriptions as of 09/11/2024 [...] daily at bedtime. For cholesterol. - Insulin [place], Disposable, 29 gauge x 1/2 Use once daily as directed. Dx E11.29 - empagliflozin (JARDIANCE) 10 mg tablet Take 1 tablet by mouth once daily. Prescribed by inspector fabric - calcitriol (ROCALTROL) 0.5 mcg capsule Take [...] daily. Per Dr. Yulia Antoine, cardiology. - pcvkurrjnxr-faretaopj-yr lanter (TRELEGY ELLIPTA) 100-62.5-25 mcg inhalation powder Inhale 1 Puff as instructed once daily. - docusate sodium (COLACE) 100 mg capsule Take 1 capsule by mouth as needed. - melatonin 5 mg tablet Take 2 tablets by mouth. - senna (SENOKOT) 8.6 mg tab Take 1 tablet by mouth as needed. - Vit C-Vit F-Osvoki-YzGz-Lutein (PRESERVISION LUTEIN) 226 mg-200 unit -5 mg-0.8 mg cap Take 1 capsule by mouth once daily. - blood sugar diagnostic (Paradise CornerTOUCH ULTRA TEST) test strip Test blood sugar(s) [...] [E87.1] 02/22/2022 (more content not included)... [facility] VAL ERICKSON ([id number]) 1945 F Date Time Provider Department 08/31/24 NEEL TURPIN [facility] During your visit today, we recorded the following information about you: Carole Lundy LPN 08/31/2024 3:26 PM Signed Taylor with [facility] PT calls to report PT will [...] Date Reviewed: 08/19/2024 Reviewed by: Tessa Brock [facility] - Fully Assessed Reason for Visit: PT [...] daily at bedtime. For cholesterol. - Insulin [place], Disposable, 29 gauge x 1/2 Use once daily as directed. Dx E11.29 - empagliflozin (JARDIANCE) 10 mg tablet Take 1 tablet by mouth once daily. Prescribed by inspector fabric - calcitriol (ROCALTROL) 0.5 mcg capsule Take [...] daily. Per Dr. Yulia Antoine, cardiology. - fjledjxwbsz-wnhhqyccg-vj lanter (TRELEGY ELLIPTA) 100-62.5-25 mcg inhalation powder Inhale 1 Puff as instructed once daily. - docusate sodium (COLACE) 100 mg capsule Take 1 capsule by mouth as needed. - melatonin 5 mg tablet Take 2 tablets by mouth. - senna (SENOKOT) 8.6 mg tab Take 1 tablet by mouth as needed. - Vit C-Vit P-Sivbmd-WvSq-Lutein (PRESERVISION LUTEIN) 226 mg-200 unit -5 mg-0.8 mg cap Take 1 capsule by mouth once daily. - blood sugar diagnostic ([employer] Muse[employer] ULTRA TEST) test strip Test blood sugar(s) [...] 02/22/2022 Hype (more content not included)... Normal [facility] CNOVon 08-19-2024 CNOV Office Visit (INTMWS ) -------- VAL ERICKSON ([id number]) 1945 F Date Time Provider Department 08/19/24 9:40 AM KACY MARY INTMWS During your visit today, we recorded the following information about you: Pulse Respiration Blood pressure Weight 88/minute 14/minute 124/86 121.6 kg Kacy Mary, TIRE REPAIRMAN.TECHNICAL STAFF ENGINEER 08/19/2024 9:46 AM Signed - Continue taking [...] or any new concerning symptoms. Kacy Mary, DAHLIA.TECHNICAL STAFF ENGINEER 08/19/2024 9:52 AM Signed CC: Patient presents with: Shortness of Breath: When ambulating HPI Recording using ambient AI software for draft documentation of the visit was discussed with the patient/authorized computer help desk representative; all questions welcomed and answered. Patient/authorized computer help desk representative agreed to proceed Val is an [...] activities like walking to the car. - Bindery Supervisor is attempting to wean Val off oxygen. - Denies orthopnea, paroxysmal nocturnal dyspnea, chest pain, palpitations, fever, chills, cough, or wheezing. CHF: - Baseline Lasix dosage is 20 mg daily. - Scheduled to see inspector fabric on the . Review of Systems Constitutional: [...] EXTRACTION HX 2016 both eyes catacts removed, [facility] [place] [facility] CHOLECYSTECTOMY 1970 COLONOSCOPY FLX DX W/COLLJ SPEC WHEN PFRMD 09/12/2012 Colonoscopy COLSC FLX W/RMVL OF TUMOR POLYP LESION SNARE TQ 07/11/2009 Polyp at 45cm - small CYSTOSCOPY, URETERAL STENT CHANGE/INSERTION EGD TRANSORAL BIOPSY SINGLE/MULTIPLE 07/11/2009 duodenitis, gastritis EGD TRANSORAL (more content not included)... Normal [facility] HH, Hemoglobin AND Hematocri ton 08-19-2024 Hematocrit (Bld) [Volume fraction] 34.5 % Low 37-47 [facility] Comment on above: Performed By: #### L 500.3600, L100.0600 ####[facility] [address] [place], [address] Hemoglobin (Bld) [Mass/Vol] 10.7 g/dL Low 12.0-15.0 [facility] Comment on above: Performed By: #### L 500.3600, L100.0600 ####[facility] [address] [place], [address] Renal Profileon 08-19-2024 Albumin [Mass/Vol] 3.9 g/dL Normal 3.4-4.8 [facility] Comment on above: Performed By: #### L 500.3600, L100.0600 ####[facility] [address] [place], [address] BUN/CRE 20.3 RATIO High 10-20 [facility] Comment on above: Performed By: #### L 500.3600, L100.0600 ####[facility] [address] [place], [address] Calcium [Mass/Vol] 9.6 mg/dL Normal 7.6-11.0 [facility] Comment on above: Performed By: #### L 500.3600, L100.0600 ####[facility] [address] [place], [address] Chloride [Moles/Vol] 99 mmol/L Normal 98-108 [facility] Comment on above: Performed By: #### L 500.3600, L100.0600 ####[facility] [address] [place], [address] CO2 [Moles/Vol] 23.5 mmol/L Normal 21.0-32.0 [facility] Comment on above: Performed By: #### L 500.3600, L100.0600 ####[facility] [address] [place], [address] Creatinine [Mass/Vol] 2.68 mg/dL High 0.70-1.20 [facility] Comment on above: Performed By: #### L 500.3600, L100.0600 ####[facility] [address] [place], [address] GAP 15 Normal 5-15 [facility] Comment on above: Performed By: #### L 500.3600, L100.0600 ####[facility] [address] [place], [address] GFR/1.73 sq M.predicted among non-blacks MDRD (S/P/Bld) [Vol rate/Area] 17 mL/min/{1.73_m2} Low >60 [facility] Comment on above: Result Comment: mL/m in/1.73m2 CKD-EPI Creatinine Equation (2020) Performed By: #### L 500.3600, L100.0600 ####[facility] [address] [place], [address] Glucose [Mass/Vol] 82 mg/dL Normal 70-99 [facility] Comment on above: Performed By: #### L 500.3600, L100.0600 ####[facility] [address] [place], [address] Phosphate [Mass/Vol] 4.8 mg/dL High 2.7-4.5 [facility] Comment on above: Performed By: #### L 500.3600, L100.0600 ####[facility] [address] [place], [address] Potassium [Moles/Vol] 4.3 mmol/L Normal 3.3-5.1 [facility] Comment on above: Performed By: #### L 500.3600, L100.0600 ####[facility] [address] [place], [address] Sodium [Moles/Vol] 137 mmol/L Normal 133-145 [facility] Comment on above: Performed By: #### L 500.3600, L100.0600 ####[facility] [address] [place], [address] Urea nitrogen [Mass/Vol] 54 mg/dL High 4-19 [facility] Comment on above: Performed By: #### L 500.3600, L100.0600 ####[facility] [address] [place], [address] CNPNon 08-17-2024 CNPN Telephone (INTMWS) -------- VAL ERICKSON ([id number]) 1945 F Date Time Provider Department 08/17/24 NEEL TURPIN INTMARCELO During your visit today, we recorded the following information about you: Alexandra Smith LPN 08/17/2024 1:25 PM Signed Shanel from [facility] [employer] [facility] calling patient weight today is 267.5 pounds. [...] has appt at 9 am Saturday at [facility] for lab work, scheduled appt with [...] daily at bedtime. For cholesterol. - Insulin [place], Disposable, 29 gauge x 1/2 Use once daily as directed. Dx E11.29 - empagliflozin (JARDIANCE) 10 mg tablet Take 1 tablet by mouth once daily. Prescribed by inspector fabric - calcitriol (ROCALTROL) 0.5 mcg capsule Take [...] daily. Per Dr. Yulia Antoine, cardiology. - isoftimrfgv-stnsjpwet-sw lanter (TRELEGY ELLIPTA) 100-62.5-25 mcg inhalation powder Inhale 1 Puff as instructed once daily. - docusate sodium (COLACE) 100 mg capsule Take 1 capsule by mouth as needed. - melatonin 5 mg tablet Take 2 tablets by mouth. - senna (SENOKOT) 8.6 mg tab Take 1 tablet by mouth as needed. - Vit C-Vit F-Lvadbr-HfUt-Lutein (PRESERVISION LUTEIN) 226 mg-200 unit -5 mg-0.8 mg cap Take 1 capsule by mouth once daily. - blood sugar diagnostic ([employer] ULTRA TEST) test strip Test blood sugar(s) [...] [H52.229] 06 (more content not included)... Normal [facility] 08-12-2024 CNPN Telephone (INTMWS) -------- VAL ERICKSON ([id number]) 1945 F Date Time Provider Department 08/12/24 NEEL TURPIN INTMWS During your visit today, we recorded the following information about you: Elizabeth Obando RN 08/12/2024 4:50 PM Signed Lata Nurse with [facility] calling to report patient has had an [...] daily at bedtime. For cholesterol. - Insulin [place], Disposable, 29 gauge x 1/2 Use once daily as directed. Dx E11.29 - empagliflozin (JARDIANCE) 10 mg tablet Take 1 tablet by mouth once daily. Prescribed by inspector fabric - calcitriol (ROCALTROL) 0.5 mcg capsule Take [...] daily. Per Dr. Yulia Antoine, cardiology. - cxolnghsizc-zwzwezixr-ii lanter (TRELEGY ELLIPTA) 100-62.5-25 mcg inhalation powder Inhale 1 Puff as instructed once daily. - docusate sodium (COLACE) 100 mg capsule Take 1 capsule by mouth as needed. - melatonin 5 mg tablet Take 2 tablets by mouth. - senna (SENOKOT) 8.6 mg tab Take 1 tablet by mouth as needed. - Vit C-Vit I-Edxvrk-BrSb-Lutein (PRESERVISION LUTEIN) 226 mg-200 unit -5 mg-0.8 mg cap Take 1 capsule by mouth once daily. - blood sugar diagnostic (Paradise CornerTOUCH ULTRA TEST) test strip Test blood sugar(s) [...] [M89.8X9] 09/19/2016 (more content not included)... Normal [facility] CNPNon 08-06-2024 CNPN Telephone (INTMWS) -------- VAL ERICKSON ([id number]) 1945 F Date Time Provider Department 08/06/24 NEEL TURPIN INTMWS During your visit today, we recorded the following information about you: Irene Paredes RN 08/06/2024 10:06 AM Signed Ezra PT from [facility] calls and states that he needs orders for additional physical therapy visit for week of August 16. This visit is for patient to be re-certified for physical therapy. Please review and advise, SYLVAIN Santamaria Victor H, MD 08/06/2024 2:46 PM Signed Amilcar PT recert. Elizabeth Aguilar RN 08/06/2024 3:57 PM Signed Ezra PT from [facility] called and is notified of providers message [...] daily at bedtime. For cholesterol. - Insulin [place], Disposable, 29 gauge x 1/2 Use once daily as directed. Dx E11.29 - empagliflozin (JARDIANCE) 10 mg tablet Take 1 tablet by mouth once daily. Prescribed by inspector fabric - calcitriol (ROCALTROL) 0.5 mcg capsule Take [...] daily. Per Dr. Yulia Antoine, cardiology. - kuxlpiuirty-annqrsqma-be lanter (TRELEGY ELLIPTA) 100-62.5-25 mcg inhalation powder Inhale 1 Puff as instructed once daily. - docusate sodium (COLACE) 100 mg capsule Take 1 capsule by mouth as needed. - melatonin 5 mg tablet Take 2 tablets by mouth. - senna (SENOKOT) 8.6 mg tab Take 1 tablet by mouth as needed. - Vit C-Vit P-Flwwcl-WdHc-Lutein (PRESERVISION LUTEIN) 226 mg-200 unit -5 mg-0.8 mg cap Take 1 capsule by mouth once daily. - blood sugar diagnostic (Paradise CornerTOUCH ULTRA TEST) test strip Test blood sugar(s) [...] Posterior capsule (more content not included)... Normal [facility] CNOVon 08-05-2024 CNOV Office Visit (INTMWS ) -------- GEORGINAVAL ([id number]) 1945 F Date Time Provider Department 08/05/24 10:20 AM KACY MARY INTMWS During your visit today, we recorded the following information about you: Pulse Respiration Blood pressure 82/minute 12/minute 132/80 Kacy Mary, TIRE REPAIRMAN.TECHNICAL STAFF ENGINEER 08/05/2024 11:55 AM Signed CC: Patient presents with: Follow Up: 4 weeks HPI Recording using iWeebo software for draft documentation of the visit was discussed with the patient/authorized computer help desk representative; all questions welcomed and answered. Patient/authorized computer help desk representative agreed to proceed Val is a [...] EXTRACTION HX 2016 both eyes catacts removed, [facility] CHOLECYSTECTOMY 1970 COLONOSCOPY FLX DX [...] hydronephrosis. PAST (more content not included)... Normal [facility] 07-29-2024 [facility] Telephone (INTMWS) -------- VAL ERICKSON ([id number]) 1945 F Date Time Provider Department 07/29/24 NEEL TURPIN INTMWS During your visit today, we recorded the following information about you: Irene Paredes, RN 07/29/2024 8:57 AM Signed Shanel from [facility] calls with Medication clarification on Xarelto. Patient has not been taking medication. Patient was given 26 tablets at discharge from [facility] on 05/25/2024. Medication was for DVT [...] daily at bedtime. For cholesterol. - Insulin [place], Disposable, 29 gauge x 1/2 Use once daily as directed. Dx E11.29 - empagliflozin (JARDIANCE) 10 mg tablet Take 1 tablet by mouth once daily. Prescribed by inspector fabric - calcitriol (ROCALTROL) 0.5 mcg capsule Take [...] daily. Per Dr. Yulia Antoine, cardiology. - nrnsgagwcsw-qiadupuiv-aw lanter (TRELEGY ELLIPTA) 100-62.5-25 mcg inhalation powder Inhale 1 Puff as instructed once daily. - docusate sodium (COLACE) 100 mg capsule Take 1 capsule by mouth as needed. - melatonin 5 mg tablet Take 2 tablets by mouth. - senna (SENOKOT) 8.6 mg tab Take 1 tablet by mouth as needed. - Vit C-Vit O-Rbmica-DiPt-Lutein (PRESERVISION LUTEIN) 226 mg-200 unit -5 mg-0.8 mg cap Take 1 capsule by mouth once daily. - blood sugar diagnostic (Paradise CornerTOUCH ULTRA TEST) test strip Test blood sugar(s) [...] 06/17/2017 Controll (more content not included)... Normal [facility] Ferritinon 07-22-2024 Ferritin [Mass/Vol] 93 ng/mL Normal 22-378 [facility] Comment on above: Performed By: #### L 503.6030, L503.6550, L100.0600, L500.3600 ####[facility] [address] [place], [address] HH, Hemoglobin AND Hematocr iton 07-22-2024 Hematocrit (Bld) [Volume fraction] 32.8 % Low 37-47 [facility] Comment on above: Performed By: #### L 503.6030, L503.6550, L100.0600, L500.3600 ####[facility] [address] [place], [address] Hemoglobin (Bld) [Mass/Vol] 10.3 g/dL Low 12.0-15.0 [facility] Comment on above: Performed By: #### L 503.6030, L503.6550, L100.0600, L500.3600 ####[facility] [address] [place], [address] Iron+Iron Binding Capacityon 07-22-2024 Iron [Mass/Vol] 59 ug/dL Normal 50-170 [facility] Comment on above: Performed By: #### L 503.6030, L503.6550, L100.0600, L500.3600 ####[facility] [address] [place], [address] IRON SATURATION 19.0 Normal 13-59 [facility] Comment on above: Performed By: #### L 503.6030, L503.6550, L100.0600, L500.3600 ####[facility] [address] [place], [address] TIBC 314 ug/dL Normal 250-450 [facility] Comment on above: Performed By: #### L 503.6030, L503.6550, L100.0600, L500.3600 ####[facility] [address] [place], [address] UIBC 255 ug/dL Normal 228-428 [facility] Comment on above: Performed By: #### L 503.6030, L503.6550, L100.0600, L500.3600 ####[facility] [address] [place], [address] Renal Profileon 07-22-2024 Albumin [Mass/Vol] 4.0 g/dL Normal 3.4-4.8 [facility] Comment on above: Performed By: #### L 503.6030, L503.6550, L100.0600, L500.3600 ####[facility] [address] [place], [address] BUN/CRE 27.8 RATIO High 10-20 [facility] Comment on above: Performed By: #### L 503.6030, L503.6550, L100.0600, L500.3600 ####[facility] [address] [place], [address] Calcium [Mass/Vol] 9.9 mg/dL Normal 7.6-11.0 [facility] Comment on above: Performed By: #### L 503.6030, L503.6550, L100.0600, L500.3600 ####[facility] [address] [place], [address] Chloride [Moles/Vol] 105 mmol/L Normal 98-108 [facility] Comment on above: Performed By: #### L 503.6030, L503.6550, L100.0600, L500.3600 ####[facility] [address] [place], [address] CO2 [Moles/Vol] 21.0 mmol/L Normal 21.0-32.0 [facility] Comment on above: Performed By: #### L 503.6030, L503.6550, L100.0600, L500.3600 ####[facility] [address] [place], [address] Creatinine [Mass/Vol] 2.31 mg/dL High 0.70-1.20 [facility] Comment on above: Performed By: #### L 503.6030, L503.6550, L100.0600, L500.3600 ####[facility] [address] [place], [address] GAP 16 High 5-15 [facility] Comment on above: Performed By: #### L 503.6030, L503.6550, L100.0600, L500.3600 ####[facility] [address] [place], [address] GFR/1.73 sq M.predicted among non-blacks MDRD (S/P/Bld) [Vol rate/Area] 21 mL/min/{1.73_m2} Low >60 [facility] Comment on above: Result Comment: mL/m in/1.73m2 CKD-EPI Creatinine Equation (2020) Performed By: #### L 503.6030, L503.6550, L100.0600, L500.3600 ####[facility] [address] [place], [address] Glucose [Mass/Vol] 99 mg/dL Normal 70-99 [facility] Comment on above: Performed By: #### L 503.6030, L503.6550, L100.0600, L500.3600 ####[facility] [address] [place], [address] Phosphate [Mass/Vol] 4.6 mg/dL High 2.7-4.5 [facility] Comment on above: Performed By: #### L 503.6030, L503.6550, L100.0600, L500.3600 ####[facility] [address] [place], [address] Potassium [Moles/Vol] 4.9 mmol/L Normal 3.3-5.1 [facility] Comment on above: Performed By: #### L 503.6030, L503.6550, L100.0600, L500.3600 ####[facility] [address] [place], [address] Sodium [Moles/Vol] 142 mmol/L Normal 133-145 [facility] Comment on above: Performed By: #### L 503.6030, L503.6550, L100.0600, L500.3600 ####[facility] [address] [place], [address] Urea nitrogen [Mass/Vol] 64 mg/dL High 4-19 [facility] Comment on above: Performed By: #### L 503.6072, L503.6526, L100.0600, L500.2870 ####[facility] [address] [place], [address] [facility] Tele[facility] ([facility]) -------- VAL ERICKSON ([id number]) 1945 F Date Time Provider Department 07/18/24 TESSA BROCK [facility] During your visit today, we recorded the following information about you: Marly Condon 07/18/2024 9:02 AM Signed Val is calling Tessa Brock [facility] today with concern regarding Medication Problem (Ozempic) Patient has cost concerns about the medication and does not want it sent to the pharmacy. Please call her to discuss [phone] Patient has been identified by name and birthdate. Duration of symptoms: N/A Person calling: self Call patient at: at home [phone] (home) [phone] (cell) Was an appointment scheduled: No Closing statement: Tessa Beauchamp [facility] 07/20/2024 9:32 AM Signed Called and spoke with patient. States she received a letter from [employer] regarding cost/unable to get the weekly shots. [...] deciding on resuming Mounjaro. Tessa Brock, PharmD, [facility] [employer] Allergies As of Date: 07/18/2024 Noted Allergy Reaction RYBELSUS (SEMAGLUTIDE) 07/10/2023 5 - Intolerance Comments: Uncontrollable indigestion LEVAQUIN (LEVOFLOXACIN) 12/29/2004 Comments: itching,diarrhea,dausea, burning skin SEASONAL ALLERGIES 08/19/2014 14 - Other: See Comments Comments: Sinus SULFA (SULFONAMIDE ANTIBIOTICS) 12/29/2004 Comments: rash and hives Date Reviewed: 07/16/2024 Reviewed by: Tessa Brock, [facility] - Fully Assessed Reason for Visit: Medication [...] daily at bedtime. For cholesterol. - Insulin [place], Disposable, 29 gauge x 1/2 Use once daily as directed. Dx E11.29 - empagliflozin (JARDIANCE) 10 mg tablet Take 1 tablet by mouth once daily. Prescribed by inspector fabric - calcitriol (ROCALTROL) 0.5 mcg capsule Take [...] daily. Per Dr. Yulia Antoine, cardiology. - ezxkegjihlj-jbiiqivyq-xj lanter (TRELEGY ELLIPTA) 100-62.5-25 mcg inhalation powder Inhale 1 Puff as instructed once daily. - docusate sodium (COLACE) 100 mg capsule Take 1 capsule by mouth as needed. - melatonin 5 mg tablet Take 2 tablets by mouth. - senna (SENOKOT) 8.6 mg tab Take 1 tablet by mouth as needed. - Vit C-Vit J-Wrapeu-WcRq-Lutein (PRESERVISION LUTEIN) 226 mg-200 unit -5 mg-0.8 mg cap Take 1 capsule by mouth once daily. - blood sugar diagnostic ([employer] ULTRA TEST) test strip Test blood sugar(s) [...] hemorrhage [*10/24/2010 (more content not included)... [facility] VAL ERICKSON ([id number]) 1945 F Date Time Provider Department 07/18/24 [...] Date Reviewed: 07/16/2024 Reviewed by: Tessa Brock [facility] - Fully Assessed Prescriptions as of 07/18/2024 [...] daily at bedtime. For cholesterol. - Insulin [place], Disposable, 29 gauge x 1/2 Use once daily as directed. Dx E11.29 - empagliflozin (JARDIANCE) 10 mg tablet Take 1 tablet by mouth once daily. Prescribed by inspector fabric - calcitriol (ROCALTROL) 0.5 mcg capsule Take [...] daily. Per Dr. Yulia Antoine, cardiology. - qfqedxdwlgu-ufidhyvku-tz lanter (TRELEGY ELLIPTA) 100-62.5-25 mcg inhalation powder Inhale 1 Puff as instructed once daily. - docusate sodium (COLACE) 100 mg capsule Take 1 capsule by mouth as needed. - melatonin 5 mg tablet Take 2 tablets by mouth. - senna (SENOKOT) 8.6 mg tab Take 1 tablet by mouth as needed. - Vit C-Vit F-Suijjj-XnLy-Lutein (PRESERVISION LUTEIN) 226 mg-200 unit -5 mg-0.8 mg cap Take 1 capsule by mouth once daily. - blood sugar diagnostic (Paradise CornerTOUCH ULTRA TEST) test strip Test blood sugar(s) [...] falls [R29. (more content not included)... [facility] C[facility] (INTMWS) -------- GEORGINAVAL ([id number]) 1945 F Date Time Provider Department 07/10/24 NEEL TURPIN INTMWS During your visit today, we recorded the following information about you: Bruna Olea LPN 07/10/2024 8:48 AM Signed [facility] asking to add a social worker masters and home health aid. Irene Paredes RN 07/10/2024 10:22 AM Signed Shanel from [facility] calls and is asking if provider [...] review and advise, SYLVAIN Santamaria Naz M, APRN.[facility] 07/10/2024 11:44 AM Signed Okay for orders Kacy Mary APRN.TECHNICAL STAFF ENGINEER Johana Cerna MA 07/10/2024 12:10 PM Signed Shanel was notified Johana Cerna MA Allergies As of Date: 07/10/2024 Noted Allergy Reaction RYBELSUS (SEMAGLUTIDE) 07/10/2023 5 - Intolerance Comments: Uncontrollable indigestion LEVAQUIN (LEVOFLOXACIN) 12/29/2004 Comments: itching,diarrhea,dausea, burning skin SEASONAL ALLERGIES 08/19/2014 14 - Other: See Comments Comments: Sinus SULFA (SULFONAMIDE ANTIBIOTICS) 12/29/2004 Comments: rash and hives Date Reviewed: 07/06/2024 Reviewed by: Kacy Mary APRN.TECHNICAL STAFF ENGINEER - Fully Assessed Reason for Visit: Orders [...] daily at bedtime. For cholesterol. - Insulin [place], Disposable, 29 gauge x 1/2 Use once daily as directed. Dx E11.29 - empagliflozin (JARDIANCE) 10 mg tablet Take 1 tablet by mouth once daily. Prescribed by inspector fabric - calcitriol (ROCALTROL) 0.5 mcg capsule Take [...] daily. Per Dr. Yulia Antoine, cardiology. - iudncpartzg-nmpxbpssh-gi lanter (TRELEGY ELLIPTA) 100-62.5-25 mcg inhalation powder Inhale 1 Puff as instructed once daily. - docusate sodium (COLACE) 100 mg capsule Take 1 capsule by mouth as needed. - melatonin 5 mg tablet Take 2 tablets by mouth. - senna (SENOKOT) 8.6 mg tab Take 1 tablet by mouth as needed. - Vit C-Vit B-Czsgiv-IkCs-Lutein (PRESERVISION LUTEIN) 226 mg-200 unit -5 mg-0.8 [...] 06/17/2017 Co (more content not included)... Normal [facility] CNOVon 07-06-2024 CNOV Office Visit (INTMWS ) -------- VAL ERICKSON ([id number]) 1945 F Date Time Provider Department 07/06/24 8:00 AM KACY MARY INTMWS During your visit today, we recorded the following information about you: Pulse Blood pressure Weight 86/minute 118/76 117.9 kg Kacy Mary, TIRE REPAIRMAN.TECHNICAL STAFF ENGINEER 07/06/2024 8:30 AM Signed We discussed your recent health concerns and follow-up care after your discharge from the nursing home facility: - Anxiety and Depression: - I increased your Buspirone (BuSpar) to 10 mg twice daily to help manage your anxiety. This prescription has been sent to [facility]. If you have any remaining [...] concerns before your next visit. Kacy Mary, TIRE REPAIRMAN.[facility] 07/06/2024 8:45 AM Signed CC: Patient presents with: Hospital F/U HPI Recording using [employer] software for draft documentation of the visit was discussed with the patient/authorized computer help desk representative; all questions welcomed and answered. Patient/authorized computer help desk representative agreed to proceed Val is a 79-year-old female, with a history of right intertrochanteric femur fracture, pneumonia, Klebsiella UTI, and anxiety, presenting for follow-up after discharge from a nursing home facility. Val was initially admitted to [facility] on 04/28/24 for a right intertrochanteric femur fracture, which was surgically repaired on 04/29/24. She was then transferred to a nursing home facility for rehabilitation. During her stay, she was found unresponsive on 05/25/24 and was readmitted to [facility], where she was diagnosed with a right mid-lung infiltrate and Klebsiella UTI. She improved on antibiotics and was discharged back to the nursing home facility. She was discharged home on 06/25/24 [...] a pulmono (more content not included)... Normal [facility]-29-2024 [facility] -------- VAL ERICKSON ([id number]) 1945 F Date Time Provider Department 06/29/24 NEEL TURPIN [facility] During your visit today, we recorded the following information about you: Carole Lundy LPN 06/29/2024 2:38 PM Signed Ezra with [facility] PT calls to report he saw [...] hives Date Reviewed: 04/08/2024 Reviewed by: Tessa Borck [facility] - Fully Assessed Reason for Visit: PT [...] Units subcutaneously daily at bedtime. - Insulin [place], Disposable, 29 gauge x 1/2 Use once daily as directed. Dx E11.29 - venlafaxine ER (EFFEXOR XR) 75 mg 24 hr capsule Take 1 capsule by mouth once daily. - empagliflozin (JARDIANCE) 10 mg tablet Take 1 tablet by mouth once daily. Prescribed by inspector fabric - calcitriol (ROCALTROL) 0.5 mcg capsule Take [...] daily. Per Dr. Yulia Antoine, cardiology. - bkhmzriixfz-jbjpiuxyf-wy lanter (TRELEGY ELLIPTA) 100-62.5-25 mcg inhalation powder Inhale 1 Puff as instructed once daily. - docusate sodium (COLACE) 100 mg capsule Take 1 capsule by mouth as needed. - melatonin 5 mg tablet Take 2 tablets by mouth. - senna (SENOKOT) 8.6 mg tab Take 1 tablet by mouth as needed. - Vit C-Vit Y-Owycgs-KqCj-Lutein (PRESERVISION LUTEIN) 226 mg-200 unit -5 mg-0.8 mg cap Take 1 capsule by mouth once daily. - COMPOUNDED PRESCRIPTION Take 1 tablet by mouth twice daily. Plexus Bio-5 (Probiotic) - blood sugar diagnostic (Paradise CornerTOUCH ULTRA TEST) test strip Test blood sugar(s) [...] inappropriate secretion (more content not included)... Normal [facility] Ferritinon 06-24-2024 Ferritin [Mass/Vol] 99 ng/mL Normal 22-378 [facility] Comment on above: Performed By: #### L 500.3600, L503.6030, L100.0600, L503.6550 ####[facility] [address] [place], [address] HH, Hemoglobin AND Hematocri ton 06-24-2024 Hematocrit (Bld) [Volume fraction] 30.1 % Low 37-47 [facility] Comment on above: Performed By: #### L 500.3600, L503.6030, L100.0600, L503.6550 ####[facility] [address] [place], [address] Hemoglobin (Bld) [Mass/Vol] 9.3 g/dL Low 12.0-15.0 [facility] Comment on above: Performed By: #### L 500.3600, L503.6030, L100.0600, L503.6550 ####[facility] [address] [place], [address] Iron+Iron Binding Capacityon 06-24-2024 Iron [Mass/Vol] 54 ug/dL Normal 50-170 [facility] Comment on above: Performed By: #### L 500.3600, L503.6030, L100.0600, L503.6550 ####[facility] [address] [place], [address] IRON SATURATION 19.0 Normal 13-59 [facility] Comment on above: Performed By: #### L 500.3600, L503.6030, L100.0600, L503.6550 ####[facility] [address] [place], [address] TIBC 291 ug/dL Normal 250-450 [facility] Comment on above: Performed By: #### L 500.3600, L503.6030, L100.0600, L503.6550 ####[facility] [address] [place], [address] UIBC 237 ug/dL Normal 228-428 [facility] Comment on above: Performed By: #### L 500.3600, L503.6030, L100.0600, L503.6550 ####[facility] [address] [place], [address] Renal Profileon 06-24-2024 Albumin [Mass/Vol] 3.9 g/dL Normal 3.4-4.8 [facility] Comment on above: Performed By: #### L 500.3600, L503.6030, L100.0600, L503.6550 ####[facility] [address] [place], [address] BUN/CRE 29.1 RATIO High 10-20 [facility] Comment on above: Performed By: #### L 500.3600, L503.6030, L100.0600, L503.6550 ####[facility] [address] [place], [address] Calcium [Mass/Vol] 10.3 mg/dL Normal 7.6-11.0 [facility] Comment on above: Performed By: #### L 500.3600, L503.6030, L100.0600, L503.6550 ####[facility] [address] [place], [address] Chloride [Moles/Vol] 101 mmol/L Normal 98-108 [facility] Comment on above: Performed By: #### L 500.3600, L503.6030, L100.0600, L503.6550 ####[facility] [address] [place], [address] CO2 [Moles/Vol] 22.7 mmol/L Normal 21.0-32.0 [facility] Comment on above: Performed By: #### L 500.3600, L503.6030, L100.0600, L503.6550 ####[facility] [address] [place], [address] Creatinine [Mass/Vol] 2.22 mg/dL High 0.70-1.20 [facility] Comment on above: Performed By: #### L 500.3600, L503.6030, L100.0600, L503.6550 ####[facility] [address] [place], [address] GAP 13 Normal 5-15 [facility] Comment on above: Performed By: #### L 500.3600, L503.6030, L100.0600, L503.6550 ####[facility] [address] [place], [address] GFR/1.73 sq M.predicted among non-blacks MDRD (S/P/Bld) [Vol rate/Area] 22 mL/min/{1.73_m2} Low >60 [facility] Comment on above: Result Comment: mL/m in/1.73m2 CKD-EPI Creatinine Equation (2020) Performed By: #### L 500.3600, L503.6030, L100.0600, L503.6550 ####[facility] [address] [place], [address] Glucose [Mass/Vol] 198 mg/dL High 70-99 [facility] Comment on above: Performed By: #### L 500.3600, L503.6030, L100.0600, L503.6550 ####[facility] [address] [place], [address] Phosphate [Mass/Vol] 4.5 mg/dL Normal 2.7-4.5 [facility] Comment on above: Performed By: #### L 500.3600, L503.6030, L100.0600, L503.6550 ####[facility] [address] [place], [address] Potassium [Moles/Vol] 4.5 mmol/L Normal 3.3-5.1 [facility] Comment on above: Performed By: #### L 500.3600, L503.6030, L100.0600, L503.6550 ####[facility] [address] [place], [address] Sodium [Moles/Vol] 136 mmol/L Normal 133-145 [facility] Comment on above: Performed By: #### L 500.3600, L503.6030, L100.0600, L503.6550 ####[facility] [address] [place], [address] Urea nitrogen [Mass/Vol] 65 mg/dL High 4-19 [facility] Comment on above: Performed By: #### L 500.3600, L503.6030, L100.0600, L503.6550 ####[facility] [address] [place], [address] CBC W/Diff, Automatedon 04-0 Absolute Neut Normal 2.0-7.7 [facility] Comment on above: Result Comment: Canc elled via OM: Order cancelled - Patient discharged Performed By: #### L 100.0100 ####[facility] [address] [place], [address] HCT Normal 37-47 [facility] Comment on above: Result Comment: Canc elled via OM: Order cancelled - Patient discharged Performed By: #### L 100.0100 ####[facility] [address] [place], [address] HGB Normal 12.0-15.0 [facility] Comment on above: Result Comment: Canc elled via OM: Order cancelled - Patient discharged Performed By: #### L 100.0100 ####[facility] [address] [place], [address] MCH Normal 27.0-32.0 [facility] Comment on above: Result Comment: Canc elled via OM: Order cancelled - Patient discharged Performed By: #### L 100.0100 ####[facility] [address] [place], [address] MCHC Normal 32-36 [facility] Comment on above: Result Comment: Canc elled via OM: Order cancelled - Patient discharged Performed By: #### L 100.0100 ####[facility] [address] [place], [address] MCV Normal 81-99 [facility] Comment on above: Result Comment: Canc elled via OM: Order cancelled - Patient discharged Performed By: #### L 100.0100 ####[facility] [address] [place], [address] NEUT% Normal 47-70 [facility] Comment on above: Result Comment: Canc elled via OM: Order cancelled - Patient discharged Performed By: #### L 100.0100 ####[facility] [address] [place], [address] PLT Normal 150-450 [facility] Comment on above: Result Comment: Canc elled via OM: Order cancelled - Patient discharged Performed By: #### L 100.0100 ####[facility] [address] [place], [address] RBC Normal 4.2-5.4 [facility] Comment on above: Result Comment: Canc elled via OM: Order cancelled - Patient discharged Performed By: #### L 100.0100 ####[facility] [address] [place], [address] RDW CV Normal 11.6-14.6 [facility] Comment on above: Result Comment: Canc elled via OM: Order cancelled - Patient discharged Performed By: #### L 100.0100 ####[facility] [address] [place], [address] RDW SD Normal 35.1-43.9 [facility] Comment on above: Result Comment: Canc elled via OM: Order cancelled - Patient discharged Performed By: #### L 100.0100 ####[facility] [address] [place], [address] WBC Normal 4.4-11.0 [facility] Comment on above: Result Comment: Canc elled via OM: Order cancelled - Patient discharged Performed By: #### L 100.0100 ####[facility] [address] [place], [address] CNPPalak 06-22-2024 JERRYN Telephone (INTMWS) -------- VAL [id number]) 1945 F Date Time Provider Department 06/22/24 NEEL TURPIN INTMWS During your visit today, we recorded the following information about you: Elizabeth Obando, SYLVAIN 06/22/2024 3:02 PM Signed Chantell with [facility] calling. Patient will be discharging to home from [facility] on 06/25/24. Pt has orders for Home Health Nursing, PT and OT. Asking if provider will sign and follow for these orders? Call Chantell at [phone]. SYLVAIN Byrd Victor H, MD 06/22/2024 8:15 PM Signed I will follow. Please schedule post usp follow up. Discharge summary/medication list please. Johana Cerna MA 06/23/2024 8:39 AM Signed Tried calling [facility] back but not open yet. DOMINGO Fuentes M Robin, RN 06/23/2024 8:53 AM Signed Renae - [facility]- returned call and informed her, pcp is agreeable to follow for [facility]. Jesenia Glasgow LPN 06/23/2024 9:12 AM Signed [...] work out he is in contact with social worker masters at the facility for plan B if [...] Date Reviewed: 04/08/2024 Reviewed by: Tessa Brock [facility] - Fully Assessed Reason for Visit: Home [...] Units subcutaneously daily at bedtime. - Insulin [place], Disposable, 29 gauge x 1/2 Use once daily as directed. Dx E11.29 - venlafaxine ER (EFFEXOR XR) 75 mg 24 hr capsule Take 1 capsule by mouth once daily. - empagliflozin (JARDIANCE) 10 mg tablet Take 1 tablet by mouth once daily. Prescribed by inspector fabric - calcitriol (ROCALTROL) 0.5 mcg capsule Take [...] daily. Per Dr. Yulia Antoine, cardiology. - cjsvacqubyp-dhfefxvmg-jx lanter (TRELEGY ELLIPTA) 100-62.5-25 mcg inhalation powder Inhale 1 Puff as instructed once daily. - docusate sodium (COLACE) 100 mg capsule Take 1 capsule by mouth as needed. - melatonin 5 mg tablet Take 2 tablets by mouth. - senna (SENOKOT) 8.6 mg tab Take 1 tablet by mouth as needed. - Vit C-Vit Q-Xtmgwi-EvUf-Lutein (PRESERVISION LUTEIN) 226 mg-200 unit -5 mg-0.8 [...] gastritis without (more content not included)... Normal [facility] Basic metabolic 2000 panelon 06-17-2024 Anion gap [Moles/Vol] 11 mmol/L Normal 10-20 [facility] Comment on above: Performed By: #### 8 9577-1 #### [place] ([id number]) [facility] ([facility]) [address] [place] [address] Calcium [Mass/Vol] 9.9 mg/dL Normal 8.6-10.3 [facility] Comment on above: Performed By: #### 8 9577-1 #### AKOSUA SEGOVIA ([id number]) [facility] ([facility]) [facility] [place] [address] Chloride [Moles/Vol] 103 mmol/L Normal 98-107 [facility] Comment on above: Performed By: #### 8 9577-1 #### AKOSUA SEGOVIA ([id number]) [facility] ([facility]) [facility] [place] [address] CO2 [Moles/Vol] 27 mmol/L Normal 21-32 [facility] Comment on above: Performed By: #### 8 9577-1 #### AKOSUA SEGOVIA ([id number]) [facility] ([facility]) [address] [place] [address] Creatinine [Mass/Vol] 2.06 mg/dL High 0.50-1.05 [facility] Comment on above: Performed By: #### 8 9577-1 #### AKOSUA SEGOVIA ([id number]) [facility] ([facility]) [address] [place] [address] Glomerular filtration rate/1.73 sq M.predicted 24 mL/min/1.73m*2 Low >60 [facility] Comment on above: Result Comment: Calc ulations of estimated GFR are performed using the 2020 CKD-EPI Study Refit equation without the race variable for the IDMS-Traceable creatinine methods. https://jasn.asnjournals.org/content//ASN.070849 9324 Performed By: #### 8 9577-1 #### AKOSUA SEGOVIA ([id number]) [facility] ([facility]) [facility] [place] [address] Glucose [Mass/Vol] 111 mg/dL High 74-99 [facility] Comment on above: Performed By: #### 8 9577-1 #### AKOSUA SEGOVIA ([id number]) [facility] ([facility]) [facility] [place] [address] Potassium [Moles/Vol] 4.4 mmol/L Normal 3.5-5.3 [facility] Comment on above: Performed By: #### 8 9577-1 #### AKOSUA SEGOVIA ([id number]) [facility] ([facility]) [address] [place] [address] Sodium [Moles/Vol] 137 mmol/L Normal 136-145 [facility] Comment on above: Performed By: #### 8 9577-1 #### AKOSUA SEGOVIA ([id number]) [facility] ([facility]) [address] [place] [address] Urea nitrogen [Mass/Vol] 57 mg/dL High 6-23 [facility] Comment on above: Performed By: #### 8 9577-1 #### AKOSUA SEGOVIA ([id number]) [facility] ([facility]) [address] [place] [address] Basic Metabolic Profile (BMP )on 06-15-2024 BUN Normal 7-18 [facility] Comment on above: Result Comment: Canc elled via OM: Order cancelled - Patient discharged Performed By: #### L 100.0100, L500.2500 ####[facility] [address] [place], [address] BUN/CRE Normal 10-20 [facility] Comment on above: Result Comment: Canc elled via OM: Order cancelled - Patient discharged Performed By: #### L 100.0100, L500.2500 ####[facility] [address] [place], [address] Calcium Normal 8.5-10.1 [facility] Comment on above: Result Comment: Canc elled via OM: Order cancelled - Patient discharged Performed By: #### L 100.0100, L500.2500 ####[facility] [address] [place], [address] CL Normal 98-107 [facility] Comment on above: Result Comment: Canc elled via OM: Order cancelled - Patient discharged Performed By: #### L 100.0100, L500.2500 ####[facility] [address] [place], [address] CO2 Normal 21.0-32.0 [facility] Comment on above: Result Comment: Canc elled via OM: Order cancelled - Patient discharged Performed By: #### L 100.0100, L500.2500 ####[facility] [address] [place], [address] CREAT,SERUM Normal 0.55-1.02 [facility] Comment on above: Result Comment: Canc elled via OM: Order cancelled - Patient discharged Performed By: #### L 100.0100, L500.2500 ####[facility] [address] [place], [address] eGFR Normal >60 [facility] Comment on above: Result Comment: Canc elled via OM: Order cancelled - Patient discharged Performed By: #### L 100.0100, L500.2500 ####[facility] [address] [place], [address] EST GFR - AA Normal >60 [facility] Comment on above: Result Comment: Canc elled via OM: Order cancelled - Patient discharged Performed By: #### L 100.0100, L500.2500 ####[facility] [address] [place], [address] GAP Normal 5-15 [facility] Comment on above: Result Comment: Canc elled via OM: Order cancelled - Patient discharged Performed By: #### L 100.0100, L500.2500 ####[facility] [address] [place], [address] GLU Normal 74-106 [facility] Comment on above: Result Comment: Canc elled via OM: Order cancelled - Patient discharged Performed By: #### L 100.0100, L500.2500 ####[facility] [address] [place], [address] Potassium Normal 3.5-5.1 [facility] Comment on above: Result Comment: Canc elled via OM: Order cancelled - Patient discharged Performed By: #### L 100.0100, L500.2500 ####[facility] [address] [place], [address] Basic Metabolic Profile (BMP) Normal 136-145 [facility] Comment on above: Result Comment: Canc elled via OM: Order cancelled - Patient discharged Performed By: #### L 100.0100, L500.2500 ####[facility] [address] [place], [address] CBC W/Diff, Automatedon 03-3 Absolute Neut Normal 2.0-7.7 [facility] Comment on above: Result Comment: Canc elled via OM: Order cancelled - Patient discharged Performed By: #### L 100.0100, L500.2500 ####[facility] [address] [place], [address] HCT Normal 37-47 [facility] Comment on above: Result Comment: Canc elled via OM: Order cancelled - Patient discharged Performed By: #### L 100.0100, L500.2500 ####[facility] [address] [place], [address] HGB Normal 12.0-15.0 [facility] Comment on above: Result Comment: Canc elled via OM: Order cancelled - Patient discharged Performed By: #### L 100.0100, L500.2500 ####[facility] [address] [place], [address] MCH Normal 27.0-32.0 [facility] Comment on above: Result Comment: Canc elled via OM: Order cancelled - Patient discharged Performed By: #### L 100.0100, L500.2500 ####[facility] [address] [place], [address] MCHC Normal 32-36 [facility] Comment on above: Result Comment: Canc elled via OM: Order cancelled - Patient discharged Performed By: #### L 100.0100, L500.2500 ####[facility] [address] [place], [address] MCV Normal 81-99 [facility] Comment on above: Result Comment: Canc elled via OM: Order cancelled - Patient discharged Performed By: #### L 100.0100, L500.2500 ####[facility] [address] [place], [address] NEUT% Normal 47-70 [facility] Comment on above: Result Comment: Canc elled via OM: Order cancelled - Patient discharged Performed By: #### L 100.0100, L500.2500 ####[facility] [address] [place], [address] PLT Normal 150-450 [facility] Comment on above: Result Comment: Canc elled via OM: Order cancelled - Patient discharged Performed By: #### L 100.0100, L500.2500 ####[facility] [address] [place], [address] RBC Normal 4.2-5.4 [facility] Comment on above: Result Comment: Canc elled via OM: Order cancelled - Patient discharged Performed By: #### L 100.0100, L500.2500 ####[facility] [address] [place], [address] RDW CV Normal 11.6-14.6 [facility] Comment on above: Result Comment: Canc elled via OM: Order cancelled - Patient discharged Performed By: #### L 100.0100, L500.2500 ####[facility] [address] [place], [address] RDW SD Normal 35.1-43.9 [facility] Comment on above: Result Comment: Canc elled via OM: Order cancelled - Patient discharged Performed By: #### L 100.0100, L500.2500 ####[facility] [address] [place], [address] WBC Normal 4.4-11.0 [facility] Comment on above: Result Comment: Canc elled via OM: Order cancelled - Patient discharged Performed By: #### L 100.0100, L500.2500 ####[facility] [address] [place], [address] Basic metabolic 2000 panelon 06-12-2024 Anion gap [Moles/Vol] 13 mmol/L Normal 10-20 [facility] Comment on above: Performed By: #### 2 4321-2 ####AKOSUA SEGOVIA ([id number])[facility] ([facility])[address] [place] [address] Calcium [Mass/Vol] 9.7 mg/dL Normal 8.6-10.3 [facility] Comment on above: Performed By: #### 2 4321-2 ####AKOSUA SEGOVIA ([id number])[facility] ([facility])[address] [place] [address] Chloride [Moles/Vol] 99 mmol/L Normal 98-107 [facility] Comment on above: Performed By: #### 2 4321-2 ####AKOSUA SEGOVIA ([id number])[facility] ([facility])[address] [place] [address] CO2 [Moles/Vol] 25 mmol/L Normal 21-32 [facility] Comment on above: Performed By: #### 2 4321-2 ####AKOSUA SEGOVIA ([id number])[facility] ([facility])[address] [place] [address] Creatinine [Mass/Vol] 2.16 mg/dL High 0.50-1.05 [facility] Comment on above: Performed By: #### 2 4321-2 ####AKOSUA SEGOVIA ([id number])[facility] ([facility])[address] [place] [address] Glomerular filtration rate/1.73 sq M.predicted 23 mL/min/1.73m*2 Low >60 [facility] Comment on above: Result Comment: Calc ulations of estimated GFR are performed using the 2020 CKD-EPI Study Refit equation without the race variable for the IDMS-Traceable creatinine methods. https://jasn.asnjournals.org/content/early//ASN.968543 9182 Performed By: #### 2 4321-2 ####AKOSUA SEGOVIA ([id number])[facility] ([facility])[address] [place] [address] Glucose [Mass/Vol] 72 mg/dL Low 74-99 [facility] Comment on above: Performed By: #### 2 4321-2 ####AKOSUA SEGOVIA ([id number])[facility] ([facility])[address] [place] [address] Potassium [Moles/Vol] 4.2 mmol/L Normal 3.5-5.3 [facility] Comment on above: Performed By: #### 2 4321-2 ####AKOSUA SEGOVIA ([id number])[facility] ([facility])[address] [place] [address] Sodium [Moles/Vol] 133 mmol/L Low 136-145 [facility] Comment on above: Performed By: #### 2 4321-2 ####AKOSUA SEGOVIA ([id number])[facility] ([facility])[address] [place] [address] Urea nitrogen [Mass/Vol] 64 mg/dL High 6-23 [facility] Comment on above: Performed By: #### 2 4321-2 ####AKOSUA SEGOVIA ([id number])[facility] ([facility])[address] [place] [address] Basic metabolic 2000 panelon 06-10-2024 Anion gap [Moles/Vol] 14 mmol/L Normal 10-20 [facility] Comment on above: Performed By: #### 2 4321-2 ####AKOSUA SEGOVIA ([id number])[facility] ([facility] [place] [address] Calcium [Mass/Vol] 10.0 mg/dL Normal 8.6-10.3 [facility] Comment on above: Performed By: #### 2 4321-2 ####AKOSUA SEGOVIA ([id number])[facility] ([facility])[address] [place] [address] Chloride [Moles/Vol] 99 mmol/L Normal 98-107 [facility] Comment on above: Performed By: #### 2 4321-2 ####AKOSUA SEGOVIA ([id number])[facility] ([facility])[address] [place] [address] CO2 [Moles/Vol] 22 mmol/L Normal 21-32 [facility] Comment on above: Performed By: #### 2 4321-2 ####AKOSUA SEGOVIA ([id number])[facility] ([facility])[address] [place] [address] Creatinine [Mass/Vol] 2.21 mg/dL High 0.50-1.05 [facility] Comment on above: Performed By: #### 2 4321-2 ####AKOSUA SEGOVIA ([id number])[facility] ([facility])[address] [place] [address] Glomerular filtration rate/1.73 sq M.predicted 22 mL/min/1.73m*2 Low >60 [facility] Comment on above: Result Comment: Calc ulations of estimated GFR are performed using the 2020 CKD-EPI Study Refit equation without the race variable for the IDMS-Traceable creatinine methods. https://jasn.asnjournals.org/content/early/ASN.405161 7588 Performed By: #### 2 4321-2 ####AKOSUA SEGOVIA ([id number])[facility] ([facility])[address] [place] [address] Glucose [Mass/Vol] 53 mg/dL Low 74-99 [facility] Comment on above: Performed By: #### 2 4321-2 ####AKOSUA SEGOVIA ([id number])[facility] ([facility])[address] [place] [address] Potassium [Moles/Vol] 4.4 mmol/L Normal 3.5-5.3 [facility] Comment on above: Performed By: #### 2 4321-2 ####AKOSUA SEGOVIA ([id number])[facility] ([facility])[address] [place] [address] 31895 Sodium [Moles/Vol] 131 mmol/L Low 136-145 [facility] Comment on above: Performed By: #### 2 4321-2 ####AKOSUA SEGOVIA ([id number])[facility] ([facility])[address] [place] [address] Urea nitrogen [Mass/Vol] 67 mg/dL High 6-23 [facility] Comment on above: Performed By: #### 2 4321-2 ####AKOSUA SEGOVIA ([id number])[facility] ([facility])[address] [place] [address]377 Hemoglobin and Hematocrit pa elizabeth (Bld)on 06-10-2024 Hematocrit (Bld) [Volume fraction] 30.9 % Low 36.0-46.0 [facility] Comment on above: Performed By: #### 2 4360-0 ####AKOSUA SEGOVIA ([id number])[facility] ([facility])[address] [place] [address]88[address] Hemoglobin (Bld) [Mass/Vol] 9.2 g/dL Low 12.0-16.0 [facility] Comment on above: Performed By: #### 2 4360-0 ####AKOSUA SEGOVIA ([id number])[facility] ([facility])[address] [place] [address] Basic Metabolic Profile (BMP )on 06-08-2024 BUN Normal 7-18 [facility] Comment on above: Result Comment: Canc elled via OM: Order cancelled - Patient discharged Performed By: #### L 100.0100, L500.2500 ####[facility] [address] [place], [address] BUN/CRE Normal 10-20 [facility] Comment on above: Result Comment: Canc elled via OM: Order cancelled - Patient discharged Performed By: #### L 100.0100, L500.2500 ####[facility] [address] [place], [address] Calcium Normal 8.5-10.1 [facility] Comment on above: Result Comment: Canc elled via OM: Order cancelled - Patient discharged Performed By: #### L 100.0100, L500.2500 ####[facility] [address] [place], [address] CL Normal 98-107 [facility] Comment on above: Result Comment: Canc elled via OM: Order cancelled - Patient discharged Performed By: #### L 100.0100, L500.2500 ####[facility] [address] [place], [address] CO2 Normal 21.0-32.0 [facility] Comment on above: Result Comment: Canc elled via OM: Order cancelled - Patient discharged Performed By: #### L 100.0100, L500.2500 ####[facility] [address] [place], [address] CREAT,SERUM Normal 0.55-1.02 [facility] Comment on above: Result Comment: Canc elled via OM: Order cancelled - Patient discharged Performed By: #### L 100.0100, L500.2500 ####[facility] [address] [place], [address] eGFR Normal >60 [facility] Comment on above: Result Comment: Canc elled via OM: Order cancelled - Patient discharged Performed By: #### L 100.0100, L500.2500 ####[facility] [address] [place], [address] EST GFR - AA Normal >60 [facility] Comment on above: Result Comment: Canc elled via OM: Order cancelled - Patient discharged Performed By: #### L 100.0100, L500.2500 ####[facility] [address] [place], [address] GAP Normal 5-15 [facility] Comment on above: Result Comment: Canc elled via OM: Order cancelled - Patient discharged Performed By: #### L 100.0100, L500.2500 ####[facility] [address] [place], [address] GLU Normal 74-106 [facility] Comment on above: Result Comment: Canc elled via OM: Order cancelled - Patient discharged Performed By: #### L 100.0100, L500.2500 ####[facility] [address] [place], [address] Potassium Normal 3.5-5.1 [facility] Comment on above: Result Comment: Canc elled via OM: Order cancelled - Patient discharged Performed By: #### L 100.0100, L500.2500 ####[facility] [address] [place], [address] Basic Metabolic Profile (BMP) Normal 136-145 [facility] Comment on above: Result Comment: Canc elled via OM: Order cancelled - Patient discharged Performed By: #### L 100.0100, L500.2500 ####[facility] [address] [place], [address] CBC W/Diff, Automatedon 03-2 Absolute Neut Normal 2.0-7.7 [facility] Comment on above: Result Comment: Canc elled via OM: Order cancelled - Patient discharged Performed By: #### L 100.0100, L500.2500 ####[facility] [address] [place], [address] HCT Normal 37-47 [facility] Comment on above: Result Comment: Canc elled via OM: Order cancelled - Patient discharged Performed By: #### L 100.0100, L500.2500 ####[facility] [address] [place], [address] HGB Normal 12.0-15.0 [facility] Comment on above: Result Comment: Canc elled via OM: Order cancelled - Patient discharged Performed By: #### L 100.0100, L500.2500 ####[facility] [address] [place], [address] MCH Normal 27.0-32.0 [facility] Comment on above: Result Comment: Canc elled via OM: Order cancelled - Patient discharged Performed By: #### L 100.0100, L500.2500 ####[facility] [address] [place], [address] MCHC Normal 32-36 [facility] Comment on above: Result Comment: Canc elled via OM: Order cancelled - Patient discharged Performed By: #### L 100.0100, L500.2500 ####[facility] [address] [place], [address] MCV Normal 81-99 [facility] Comment on above: Result Comment: Canc elled via OM: Order cancelled - Patient discharged Performed By: #### L 100.0100, L500.2500 ####[facility] [address] [place], [address] NEUT% Normal 47-70 [facility] Comment on above: Result Comment: Canc elled via OM: Order cancelled - Patient discharged Performed By: #### L 100.0100, L500.2500 ####[facility] [address] [place], [address] PLT Normal 150-450 [facility] Comment on above: Result Comment: Canc elled via OM: Order cancelled - Patient discharged Performed By: #### L 100.0100, L500.2500 ####[facility] [address] [place], [address] RBC Normal 4.2-5.4 [facility] Comment on above: Result Comment: Canc elled via OM: Order cancelled - Patient discharged Performed By: #### L 100.0100, L500.2500 ####[facility] [address] [place], [address] RDW CV Normal 11.6-14.6 [facility] Comment on above: Result Comment: Canc elled via OM: Order cancelled - Patient discharged Performed By: #### L 100.0100, L500.2500 ####[facility] [address] [place], [address] RDW SD Normal 35.1-43.9 [facility] Comment on above: Result Comment: Canc elled via OM: Order cancelled - Patient discharged Performed By: #### L 100.0100, L500.2500 ####[facility] [address] [place], [address] WBC Normal 4.4-11.0 [facility] Comment on above: Result Comment: Canc elled via OM: Order cancelled - Patient discharged Performed By: #### L 100.0100, L500.2500 ####[facility] [address] [place], [address] Basic metabolic 2000 panelon 06-03-2024 Anion gap [Moles/Vol] 13 mmol/L Normal 10-20 [facility] Comment on above: Performed By: #### 2 4321-2 ####AKOSUA SEGOVIA ([id number])[facility] ([facility])[address] [place] [address] Calcium [Mass/Vol] 10.3 mg/dL Normal 8.6-10.3 [facility] Comment on above: Performed By: #### 2 4321-2 ####AKOSUA SEGOVIA ([id number])[facility] ([facility] [place] [address] Chloride [Moles/Vol] 103 mmol/L Normal 98-107 [facility] Comment on above: Performed By: #### 2 4321-2 ####AKOSUA SEGOVIA ([id number])[facility] ([facility])[address] [place] [address] CO2 [Moles/Vol] 24 mmol/L Normal 21-32 [facility] Comment on above: Performed By: #### 2 4321-2 ####AKOSUA SEGOVIA ([id number])[facility] ([facility])[address] [place] [address] 36234 Creatinine [Mass/Vol] 1.81 mg/dL High 0.50-1.05 [facility] Comment on above: Performed By: #### 2 4321-2 ####AKOSUA SEGOVIA ([id number])[facility] ([facility])[address] [place] [address] 32118 Glomerular filtration rate/1.73 sq M.predicted 28 mL/min/1.73m*2 Low >60 [facility] Comment on above: Result Comment: Calc ulations of estimated GFR are performed using the 2020 CKD-EPI Study Refit equation without the race variable for the IDMS-Traceable creatinine methods. https://jasn.asnjournals.org/content/early//ASN.656075 9870 Performed By: #### 2 4321-2 ####AKOSUA SEGOVIA ([id number])[facility] ([facility])[address] [place] [address] Glucose [Mass/Vol] 113 mg/dL High 74-99 [facility] Comment on above: Performed By: #### 2 4321-2 ####AKOSUA SEGOVIA ([id number])[facility] ([facility])[address] [place] [address] 16315 Potassium [Moles/Vol] 4.5 mmol/L Normal 3.5-5.3 [facility] Comment on above: Performed By: #### 2 4321-2 ####AKOSUA SEGOVIA ([id number])[facility] ([facility])[address] [place] [address] Sodium [Moles/Vol] 135 mmol/L Low 136-145 [facility] Comment on above: Performed By: #### 2 4321-2 ####AKOSUA SEGOVIA ([id number])[facility] ([facility])[address] [place] [address] Urea nitrogen [Mass/Vol] 50 mg/dL High 6-23 [facility] Comment on above: Performed By: #### 2 4321-2 ####KAOSUA SEGOVIA ([id number])[facility] ([facility])[address] [place] [address] 12415 Cobalaminson 06-03-2024 Cobalamin (Vitamin B12) [Mass/Vol] 393 pg/mL Normal 211-911 [facility] Comment on above: Performed By: #### 2 132-9 ####SAMANTHA Macedo ([id number])[facility] ([facility])[address] [place], [place] [address] Folateon 06-03-2024 Folate [Mass/Vol] 18.7 ng/mL Normal >5.0 [facility] Comment on above: Order Comment: Low < 3.4Borderline 3.4-5.0Normal >5.0Patients receiving more than 5 mg/day of biotin may have interference in test results. A sample should be taken no sooner than eight hours after previous dose. Contact the testing laboratory for additional information. Performed By: #### 2 284-8 ####SAMANTHA Macedo ([id number])[facility] ([facility])[address] [place] [address] Hemoglobin and Hematocrit pa elizabeth (Bld)on 06-03-2024 Hematocrit (Bld) [Volume fraction] 31.3 % Low 36.0-46.0 [facility] Comment on above: Performed By: #### 2 4360-0 ####AKOSUA SEGOVIA ([id number])[facility] ([facility])[address] [place] [address] Hemoglobin (Bld) [Mass/Vol] 9.4 g/dL Low 12.0-16.0 [facility] Comment on above: Performed By: #### 2 4360-0 ####AKOSUA SEGOVIA ([id number])[facility] ([facility])[address] [place] [address] 88158 Ironon 06-03-2024 Iron [Mass/Vol] 50 ug/dL Normal 35-150 [facility] Comment on above: Performed By: #### 2 498-4 ####AKOSUA SEGOVIA ([id number])[facility] ([facility])[address] [place] [address] Basic Metabolic Profile (BMP )on 06-01-2024 BUN Normal 7-18 [facility] Comment on above: Result Comment: Canc elled via OM: Order cancelled - Patient discharged Performed By: #### L 500.2500, L100.0100 ####[facility] [address] [place], [address] BUN/CRE Normal 10-20 [facility] Comment on above: Result Comment: Canc elled via OM: Order cancelled - Patient discharged Performed By: #### L 500.2500, L100.0100 ####[facility] [address] [place], [address] Calcium Normal 8.5-10.1 [facility] Comment on above: Result Comment: Canc elled via OM: Order cancelled - Patient discharged Performed By: #### L 500.2500, L100.0100 ####[facility] [address] [place], [address] CL Normal 98-107 [facility] Comment on above: Result Comment: Canc elled via OM: Order cancelled - Patient discharged Performed By: #### L 500.2500, L100.0100 ####[facility] [address] [place], [address] CO2 Normal 21.0-32.0 [facility] Comment on above: Result Comment: Canc elled via OM: Order cancelled - Patient discharged Performed By: #### L 500.2500, L100.0100 ####[facility] [address] [place], [address] CREAT,SERUM Normal 0.55-1.02 [facility] Comment on above: Result Comment: Canc elled via OM: Order cancelled - Patient discharged Performed By: #### L 500.2500, L100.0100 ####[facility] [address] [place], [address] eGFR Normal >60 [facility] Comment on above: Result Comment: Canc elled via OM: Order cancelled - Patient discharged Performed By: #### L 500.2500, L100.0100 ####[facility] [address] [place], [address] EST GFR - AA Normal >60 [facility] Comment on above: Result Comment: Canc elled via OM: Order cancelled - Patient discharged Performed By: #### L 500.2500, L100.0100 ####[facility] [address] [place], [address] GAP Normal 5-15 [facility] Comment on above: Result Comment: Canc elled via OM: Order cancelled - Patient discharged Performed By: #### L 500.2500, L100.0100 ####[facility] [address] [place], [address] GLU Normal 74-106 [facility] Comment on above: Result Comment: Canc elled via OM: Order cancelled - Patient discharged Performed By: #### L 500.2500, L100.0100 ####[facility] [address] [place], [address] Potassium Normal 3.5-5.1 [facility] Comment on above: Result Comment: Canc elled via OM: Order cancelled - Patient discharged Performed By: #### L 500.2500, L100.0100 ####[facility] [address] [place], [address] Basic Metabolic Profile (BMP) Normal 136-145 [facility] Comment on above: Result Comment: Canc elled via OM: Order cancelled - Patient discharged Performed By: #### L 500.2500, L100.0100 ####[facility] [address] [place], [address] CBC W/Diff, Automatedon - Absolute Neut Normal 2.0-7.7 [facility] Comment on above: Result Comment: Canc elled via OM: Order cancelled - Patient discharged Performed By: #### L 500.2500, L100.0100 ####[facility] [address] [place], [address] HCT Normal 37-47 [facility] Comment on above: Result Comment: Canc elled via OM: Order cancelled - Patient discharged Performed By: #### L 500.2500, L100.0100 ####[facility] [address] [place], [address] HGB Normal 12.0-15.0 [facility] Comment on above: Result Comment: Canc elled via OM: Order cancelled - Patient discharged Performed By: #### L 500.2500, L100.0100 ####[facility] [address] [place], [address] MCH Normal 27.0-32.0 [facility] Comment on above: Result Comment: Canc elled via OM: Order cancelled - Patient discharged Performed By: #### L 500.2500, L100.0100 ####[facility] [address] [place], [address] MCHC Normal 32-36 [facility] Comment on above: Result Comment: Canc elled via OM: Order cancelled - Patient discharged Performed By: #### L 500.2500, L100.0100 ####[facility] [address] [place], [address] MCV Normal 81-99 [facility] Comment on above: Result Comment: Canc elled via OM: Order cancelled - Patient discharged Performed By: #### L 500.2500, L100.0100 ####[facility] [address] [place], [address] NEUT% Normal 47-70 [facility] Comment on above: Result Comment: Canc elled via OM: Order cancelled - Patient discharged Performed By: #### L 500.2500, L100.0100 ####[facility] [address] [place], [address] PLT Normal 150-450 [facility] Comment on above: Result Comment: Canc elled via OM: Order cancelled - Patient discharged Performed By: #### L 500.2500, L100.0100 ####[facility] [address] [place], [address] RBC Normal 4.2-5.4 [facility] Comment on above: Result Comment: Canc elled via OM: Order cancelled - Patient discharged Performed By: #### L 500.2500, L100.0100 ####[facility] [address] [place], [address] RDW CV Normal 11.6-14.6 [facility] Comment on above: Result Comment: Canc elled via OM: Order cancelled - Patient discharged Performed By: #### L 500.2500, L100.0100 ####[facility] [address] [place], [address] RDW SD Normal 35.1-43.9 [facility] Comment on above: Result Comment: Canc elled via OM: Order cancelled - Patient discharged Performed By: #### L 500.2500, L100.0100 ####[facility] [address] [place], [address] WBC Normal 4.4-11.0 [facility] Comment on above: Result Comment: Canc elled via OM: Order cancelled - Patient discharged Performed By: #### L 500.2500, L100.0100 ####[facility] [address] [place], [address] CBC panel Auto (Bld)on 05-27 Erythrocyte distribution width (RBC) [Ratio] 17.1 % High 11.5-14.5 [facility] Comment on above: Performed By: #### 5 8410-2 ####AKOSUA SEGOVIA ([id number])[facility] ([facility])[address] [place] [address] Hematocrit (Bld) [Volume fraction] 28.8 % Low 36.0-46.0 [facility] Comment on above: Performed By: #### 5 8410-2 ####AKOSUA SEGOVIA ([id number])[facility] ([facility])[address] [place] [address] Hemoglobin (Bld) [Mass/Vol] 8.9 g/dL Low 12.0-16.0 [facility] Comment on above: Performed By: #### 5 8410-2 ####AKOSUA SEGOVIA ([id number])[facility] ([facility])[address] [place] [address] 19236 MCH (RBC) [Entitic mass] 32.1 pg Normal 26.0-34.0 [facility] Comment on above: Performed By: #### 5 8410-2 ####AKOSUA SEGOVIA ([id number])[facility] ([facility])[address] [place] [address] 23234 MCHC (RBC) [Mass/Vol] 30.9 g/dL Low 32.0-36.0 [facility] Comment on above: Performed By: #### 5 8410-2 ####AKOSUA SEGOVIA ([id number])[facility] ([facility])[address] [place] [address] 48392 MCV (RBC) [Entitic vol] 104 fL High 80-100 [facility] Comment on above: Performed By: #### 5 8410-2 ####AKOSUA SEGOVIA ([id number])[facility] ([facility])[address] [place] [address] 49719 Nucleated RBC/100 WBC (Bld) [Ratio] 0.0 /100 WBCs Normal 0.0-0.0 [facility] Comment on above: Performed By: #### 5 8410-2 ####AKOSUA SEGOVIA ([id number])[facility] ([facility])[address] [place] [address] 73947 Platelets (Bld) [#/Vol] 267 x10*3/uL Normal 150-450 [facility] Comment on above: Performed By: #### 5 8410-2 ####AKOSUA SEGOVIA ([id number])[facility] ([facility])[address] [place] [address] 66748 RBC (Bld) [#/Vol] 2.77 x10*6/uL Low 4.00-5.20 [facility] Comment on above: Performed By: #### 5 8410-2 ####AKOSUA SEGOVIA ([id number])[facility] ([facility])[address] [place] [address] 51572 WBC (Bld) [#/Vol] 8.4 x10*3/uL Normal 4.4-11.3 [facility] Comment on above: Performed By: #### 5 8410-2 ####AKOSUA SEGOVIA ([id number])[facility] ([facility])[address] [place] [address] 68072 Comprehensive metabolic 2000 panelon 05-27-2024 Albumin BCP dye [Mass/Vol] 3.5 g/dL Normal 3.4-5.0 [facility] Comment on above: Performed By: #### 2 4323-8 ####AKOSUA SEGOVIA ([id number])[facility] ([facility])[address] [place] [address] ALP [Catalytic activity/Vol] 98 U/L Normal 33-136 [facility] Comment on above: Performed By: #### 2 432-8 ####AKOSUA SEGOVIA ([id number])[facility] ([facility])[address] [place] [address] ALT With P-5'-P [Catalytic activity/Vol] 18 U/L Normal 7-45 [facility] Comment on above: Result Comment: Tate ents treated with Sulfasalazine may generate falsely decreased results for ALT. Performed By: #### 2 4322-8 ####AKOSUA SEGOVIA ([id number])[facility] ([facility])[address] [place] [address] 39206 Anion gap [Moles/Vol] 13 mmol/L Normal 10-20 [facility] Comment on above: Performed By: #### 2 4322-8 ####AKOSUA SEGOVIA ([id number])[facility] ([facility])[address] [place] [address] AST With P-5'-P [Catalytic activity/Vol] 14 U/L Normal 9-39 [facility] Comment on above: Performed By: #### 2 432-8 ####AKOSUA SEGOVIA ([id number])[facility] ([facility])[address] [place] [address] Bilirubin [Mass/Vol] 0.3 mg/dL Normal 0.0-1.2 [facility] Comment on above: Performed By: #### 2 4322-8 ####AKOSUA SEGOVIA ([id number])[facility] ([facility])[address] [place] [address]453 Calcium [Mass/Vol] 9.2 mg/dL Normal 8.6-10.3 [facility] Comment on above: Performed By: #### 2 432-8 ####AKOSUA SEGOVIA ([id number])[facility] ([facility])[address] [place] [address] 71679 Chloride [Moles/Vol] 102 mmol/L Normal 98-107 [facility] Comment on above: Performed By: #### 2 4323-8 ####AKOSUA SEGOVIA ([id number])[facility] ([facility])[address] [place] [address] CO2 [Moles/Vol] 20 mmol/L Low 21-32 [facility] Comment on above: Performed By: #### 2 4323-8 ####AKOSUA SEGOVIA ([id number])[facility] ([facility])[address] [place] [address] Creatinine [Mass/Vol] 1.89 mg/dL High 0.50-1.05 [facility] Comment on above: Performed By: #### 2 4323-8 ####AKOSUA SEGOVIA ([id number])[facility] ([facility])[address] [place] [address] 36259 Glomerular filtration rate/1.73 sq M.predicted 27 mL/min/1.73m*2 Low >60 [facility] Comment on above: Result Comment: Calc ulations of estimated GFR are performed using the 2020 CKD-EPI Study Refit equation without the race variable for the IDMS-Traceable creatinine methods. https://jasn.asnjournals.org/content/early/ASN.181439 7282 Performed By: #### 2 4323-8 ####AKOSUA SEGOVIA ([id number])[facility] ([facility])[address] [place] [address] 39792 Glucose [Mass/Vol] 117 mg/dL High 74-99 [facility] Comment on above: Performed By: #### 2 4323-8 ####AKOSUA SEGOVIA ([id number])[facility] ([facility])[address] [place] [address] 95882 Potassium [Moles/Vol] 4.0 mmol/L Normal 3.5-5.3 [facility] Comment on above: Performed By: #### 2 4323-8 ####AKOSUA SEGOVIA ([id number])[facility] ([facility])[address] [place] [address] 90035 Protein [Mass/Vol] 5.5 g/dL Low 6.4-8.2 [facility] Comment on above: Performed By: #### 2 4323-8 ####AKOSUA SEGOVIA ([id number])[facility] ([facility])[address] [place] [address] 97655 Sodium [Moles/Vol] 131 mmol/L Low 136-145 [facility] Comment on above: Performed By: #### 2 4323-8 ####AKOSUA SEGOVIA ([id number])[facility] ([facility])[address] [place] [address] 49993 Urea nitrogen [Mass/Vol] 37 mg/dL High 6-23 [facility] Comment on above: Performed By: #### 2 4323-8 ####AKOSUA SEGOVIA ([id number])[facility] ([facility])[address] [place] [address] 76671 Culture, Blood (WB)on 2024 CUB Blood cultures x2, f rom two different sites No growth in 5 days. Normal [facility] Comment on above: Performed By: #### M 200.1000 ####[facility] [address] [place], [address] Respiratory Cultureon 2024 RESPC List Antibiotics [place] 48 Hours? y Mixed normal respiratory [place]. No Streptococcus pneumoniae, beta-hemolytic Streptococcus or Staphylococcus aureus isolated. Normal [facility] Comment on above: Performed By: #### M 100.2000, M100.2400 ####[facility] [address] [place], [address] Basic Metabolic Profile (BMP )on 05-25-2024 BUN/CRE 21.0 RATIO High 10-20 [facility] Comment on above: Performed By: #### L 100.0100, L500.2500 ####[facility] [address] [place], [address] Calcium [Mass/Vol] 9.6 mg/dL Normal 7.6-11.0 [facility] Comment on above: Performed By: #### L 100.0100, L500.2500 ####[facility] [address] [place], [address] Chloride [Moles/Vol] 99 mmol/L Normal 98-108 [facility] Comment on above: Performed By: #### L 100.0100, L500.2500 ####[facility] [address] [place], [address] CO2 [Moles/Vol] 16.5 mmol/L Low 21.0-32.0 [facility] Comment on above: Performed By: #### L 100.0100, L500.2500 ####[facility] [address] [place], [address] Creatinine [Mass/Vol] 1.82 mg/dL High 0.70-1.20 [facility] Comment on above: Performed By: #### L 100.0100, L500.2500 ####[facility] [address] [place], [address] ECRCL 30.75 ml/min Low 50-250 [facility] Comment on above: Performed By: #### L 100.0100, L500.2500 ####[facility] [address] [place], [address] GAP 15 Normal 5-15 [facility] Comment on above: Performed By: #### L 100.0100, L500.2500 ####[facility] [address] [place], [address] GFR/1.73 sq M.predicted among non-blacks MDRD (S/P/Bld) [Vol rate/Area] 28 mL/min/{1.73_m2} Low >60 [facility] Comment on above: Result Comment: mL/m in/1.73m2 CKD-EPI Creatinine Equation (2020) Performed By: #### L 100.0100, L500.2500 ####[facility] [address] [place], [address] Glucose [Mass/Vol] 92 mg/dL Normal 70-99 [facility] Comment on above: Performed By: #### L 100.0100, L500.2500 ####[facility] [address] [place], [address] Potassium [Moles/Vol] 3.9 mmol/L Normal 3.3-5.1 [facility] Comment on above: Performed By: #### L 100.0100, L500.2500 ####[facility] [address] [place], [address] Sodium [Moles/Vol] 131 mmol/L Low 133-145 [facility] Comment on above: Performed By: #### L 100.0100, L500.2500 ####[facility] [address] [place], [address] Urea nitrogen [Mass/Vol] 38 mg/dL High 4-19 [facility] Comment on above: Performed By: #### L 100.0100, L500.2500 ####[facility] [address] [place], [address] BUN Normal 7-18 [facility] Comment on above: Result Comment: Canc elled via OM: Order cancelled - Patient discharged Performed By: #### L 500.2500, L100.0100 ####[facility] [address] [place], [address] BUN/CRE Normal 10-20 [facility] Comment on above: Result Comment: Canc elled via OM: Order cancelled - Patient discharged Performed By: #### L 500.2500, L100.0100 ####[facility] [address] [place], [address] Calcium Normal 8.5-10.1 [facility] Comment on above: Result Comment: Canc elled via OM: Order cancelled - Patient discharged Performed By: #### L 500.2500, L100.0100 ####[facility] [address] [place], [address] CL Normal 98-107 [facility] Comment on above: Result Comment: Canc elled via OM: Order cancelled - Patient discharged Performed By: #### L 500.2500, L100.0100 ####[facility] [address] [place], [address] CO2 Normal 21.0-32.0 [facility] Comment on above: Result Comment: Canc elled via OM: Order cancelled - Patient discharged Performed By: #### L 500.2500, L100.0100 ####[facility] [address] [place], [address] CREAT,SERUM Normal 0.55-1.02 [facility] Comment on above: Result Comment: Canc elled via OM: Order cancelled - Patient discharged Performed By: #### L 500.2500, L100.0100 ####[facility] [address] [place], [address] eGFR Normal >60 [facility] Comment on above: Result Comment: Canc elled via OM: Order cancelled - Patient discharged Performed By: #### L 500.2500, L100.0100 ####[facility] [address] [place], [address] EST GFR - AA Normal >60 [facility] Comment on above: Result Comment: Canc elled via OM: Order cancelled - Patient discharged Performed By: #### L 500.2500, L100.0100 ####[facility] [address] [place], [address] GAP Normal 5-15 [facility] Comment on above: Result Comment: Canc elled via OM: Order cancelled - Patient discharged Performed By: #### L 500.2500, L100.0100 ####[facility] [address] [place], [address] GLU Normal 74-106 [facility] Comment on above: Result Comment: Canc elled via OM: Order cancelled - Patient discharged Performed By: #### L 500.2500, L100.0100 ####[facility] [address] [place], [address] Potassium Normal 3.5-5.1 [facility] Comment on above: Result Comment: Canc elled via OM: Order cancelled - Patient discharged Performed By: #### L 500.2500, L100.0100 ####[facility] [address] [place], [address] Basic Metabolic Profile (BMP) Normal 136-145 [facility] Comment on above: Result Comment: Canc elled via OM: Order cancelled - Patient discharged Performed By: #### L 500.2500, L100.0100 ####[facility] [address] [place], [address] Bedside Glucoseon 05-25-2024 FINGERSTICK GLU 151 mg/dL High 74-106 [facility] Comment on above: Result Comment: JASON GEMENT OF PATIENT CARE PER NURSING PROTOCOL Performed By: #### L 501.080 ####[facility] [address] [place], [address] FINGERSTICK GLU 167 mg/dL High 74-106 [facility] Comment on above: Result Comment: JASON GEMENT OF PATIENT CARE PER NURSING PROTOCOL Performed By: #### L 501.080 ####[facility] [address] [place], [address] FINGERSTICK GLU 90 mg/dL Normal 74-106 [facility] Comment on above: Result Comment: JASON GEMENT OF PATIENT CARE PER NURSING PROTOCOL Performed By: #### L 501.080 ####[facility] [address] [place], [address] FINGERSTICK GLU 168 mg/dL High 74-106 [facility] Comment on above: Result Comment: JASON RODRIGUEZ OF PATIENT CARE PER NURSING PROTOCOL Performed By: #### L 501.080 ####[facility] [address] [place], [address] CBC W/Diff, Automatedon 03- 0-2024 Absolute Lymph 1.36 X10 3/uL Normal 0.83-4.51 [facility] Comment on above: Performed By: #### L 100.0100, L500.2500 ####[facility] [address] [place], [address] Absolute Neut 6.7 X10 3/uL Normal 2.0-7.7 [facility] Comment on above: Performed By: #### L 100.0100, L500.2500 ####[facility] [address] [place], [address] Basophils/100 WBC (Bld) 0.9 % Normal 0-1 [facility] Comment on above: Performed By: #### L 100.0100, L500.2500 ####[facility] [address] [place], [address] Eosinophils/100 WBC (Bld) 1.7 % Normal 0-5 [facility] Comment on above: Performed By: #### L 100.0100, L500.2500 ####[facility] [address] [place], [address] Erythrocyte distribution width (RBC) [Ratio] 16.4 % High 11.6-14.6 [facility] Comment on above: Performed By: #### L 100.0100, L500.2500 ####[facility] [address] [place], [address] Hematocrit (Bld) [Volume fraction] 27.3 % Low 37-47 [facility] Comment on above: Performed By: #### L 100.0100, L500.2500 ####[facility] [address] [place], [address] Hemoglobin (Bld) [Mass/Vol] 8.9 g/dL Low 12.0-15.0 [facility] Comment on above: Performed By: #### L 100.0100, L500.2500 ####[facility] [address] [place], [address] IG% 0.700 Normal 0.0-0.9 [facility] Comment on above: Result Comment: IG% - Immature Granulocytes (promyelocytes, myelocytes andmetamyelocytes) > 1% indicates that a LEFT SHIFT is Present. Performed By: #### L 100.0100, L500.2500 ####[facility] [address] [place], [address] Lymphocytes/100 WBC (Bld) 15.0 % Low 19-41 [facility] Comment on above: Performed By: #### L 100.0100, L500.2500 ####[facility] [address] [place], [address] MCH (RBC) [Entitic mass] 32.8 pg High 27.0-32.0 [facility] Comment on above: Performed By: #### L 100.0100, L500.2500 ####[facility] [address] [place], [address] MCHC (RBC) [Mass/Vol] 32.6 g/dL Normal 32-36 [facility] Comment on above: Performed By: #### L 100.0100, L500.2500 ####[facility] [address] [place], [address] MCV (RBC) [Entitic vol] 100.7 fL High 81-99 [facility] Comment on above: Performed By: #### L 100.0100, L500.2500 ####[facility] [address] [place], [address] Monocytes/100 WBC (Bld) 7.9 % Normal 0-10 [facility] Comment on above: Performed By: #### L 100.0100, L500.2500 ####[facility] [address] [place], [address] Neutrophils/100 WBC (Bld) 73.8 % High 47-70 [facility] Comment on above: Performed By: #### L 100.0100, L500.2500 ####[facility] [address] [place], [address] Nucleated RBC (Bld) [#/Vol] 0 10*3/uL Normal 0-5 [facility] Comment on above: Performed By: #### L 100.0100, L500.2500 ####[facility] [address] [place], [address] Platelet mean volume (Bld) [Entitic vol] 9.7 fL Normal 6.2-12.0 [facility] Comment on above: Performed By: #### L 100.0100, L500.2500 ####[facility] [address] [place], [address] Platelets (Bld) [#/Vol] 290 10*3/uL Normal 150-450 [facility] Comment on above: Performed By: #### L 100.0100, L500.2500 ####[facility] [address] [place], [address] RBC (Bld) [#/Vol] 2.71 10*6/uL Low 4.2-5.4 [facility] Comment on above: Performed By: #### L 100.0100, L500.2500 ####[facility] [address] [place], [address] RDW SD 58.4 fl High 35.1-43.9 [facility] Comment on above: Performed By: #### L 100.0100, L500.2500 ####[facility] [address] [place], [address] WBC (Bld) [#/Vol] 9.1 10*3/uL Normal 4.4-11.0 [facility] Comment on above: Performed By: #### L 100.0100, L500.2500 ####[facility] [address] [place], [address] Absolute Neut Normal 2.0-7.7 [facility] Comment on above: Result Comment: Canc elled via OM: Order cancelled - Patient discharged Performed By: #### L 500.2500, L100.0100 ####[facility] [address] [place], [address] HCT Normal 37-47 [facility] Comment on above: Result Comment: Canc elled via OM: Order cancelled - Patient discharged Performed By: #### L 500.2500, L100.0100 ####[facility] [address] [place], [address] HGB Normal 12.0-15.0 [facility] Comment on above: Result Comment: Canc elled via OM: Order cancelled - Patient discharged Performed By: #### L 500.2500, L100.0100 ####[facility] [address] [place], [address] MCH Normal 27.0-32.0 [facility] Comment on above: Result Comment: Canc elled via OM: Order cancelled - Patient discharged Performed By: #### L 500.2500, L100.0100 ####[facility] [address] [place], [address] MCHC Normal 32-36 [facility] Comment on above: Result Comment: Canc elled via OM: Order cancelled - Patient discharged Performed By: #### L 500.2500, L100.0100 ####[facility] [address] [place], [address] MCV Normal 81-99 [facility] Comment on above: Result Comment: Canc elled via OM: Order cancelled - Patient discharged Performed By: #### L 500.2500, L100.0100 ####[facility] [address] [place], [address] NEUT% Normal 47-70 [facility] Comment on above: Result Comment: Canc elled via OM: Order cancelled - Patient discharged Performed By: #### L 500.2500, L100.0100 ####[facility] [address] [place], [address] PLT Normal 150-450 [facility] Comment on above: Result Comment: Canc elled via OM: Order cancelled - Patient discharged Performed By: #### L 500.2500, L100.0100 ####[facility] [address] [place], [address] RBC Normal 4.2-5.4 [facility] Comment on above: Result Comment: Canc elled via OM: Order cancelled - Patient discharged Performed By: #### L 500.2500, L100.0100 ####[facility] [address] [place], [address] RDW CV Normal 11.6-14.6 [facility] Comment on above: Result Comment: Canc elled via OM: Order cancelled - Patient discharged Performed By: #### L 500.2500, L100.0100 ####[facility] [address] [place], [address] RDW SD Normal 35.1-43.9 [facility] Comment on above: Result Comment: Canc elled via OM: Order cancelled - Patient discharged Performed By: #### L 500.2500, L100.0100 ####[facility] [address] [place], [address] WBC Normal 4.4-11.0 [facility] Comment on above: Result Comment: Canc elled via OM: Order cancelled - Patient discharged Performed By: #### L 500.2500, L100.0100 ####[facility] [address] [place], [address] Gram Stainon 05-25-2024 GS Normal [facility] Comment on above: Performed By: #### M 100.2000, M100.2400 ####[facility] [address] [place], [address] M100.019on 05-25-2024 M100.019 Negative Normal [facility] Comment on above: Performed By: #### M 100.019 ####[facility] [address] [place], [address] Venous Blood Gason 5 Blood Gas Type MARY Normal [facility] Comment on above: Performed By: #### L 9000.0810 ####[facility] [address] [place], [address] CO2 [Moles/Vol] 18 mmol/L Low 23-33 [facility] Comment on above: Performed By: #### L 9000.0810 ####[facility] [address] [place], [address] HCO3 (Bld) [Moles/Vol] 17 mmol/L Low 22-26 [facility] Comment on above: Performed By: #### L 9000.0810 ####[facility] [address] [place], [address] O2 Delivery Dev Not entered Normal [facility] Comment on above: Performed By: #### L 9000.0810 ####[facility] [address] [place], [address] SITE Not entered Normal [facility] Comment on above: Performed By: #### L 9000.0810 ####[facility] [address] [place], [address] VBG BE -7 mmol/L Low -1.0-3.5 [facility] Comment on above: Performed By: #### L 9000.0810 ####[facility] [address] [place], [address] VBG pCO2 22.6 mmHg Low 41-51 [facility] Comment on above: Performed By: #### L 9000.0810 ####[facility] [address] [place], [address] VBG pH 7.48 High 7.32-7.42 [facility] Comment on above: Performed By: #### L 9000.0810 ####[facility] [address] [place], [address] VBG PO2 188 mmHg High 25-40 [facility] Comment on above: Performed By: #### L 9000.0810 ####[facility] [address] [place], [address] VBG SO2 100 High 50-70 [facility] Comment on above: Performed By: #### L 9000.0810 ####[facility] [address] [place], [address] Basic Metabolic Profile (BMP )on 05-24-2024 BUN/CRE 21.8 RATIO High 10-20 [facility] Comment on above: Performed By: #### L 500.2500, L100.0100 ####[facility] [address] [place], [address] Calcium [Mass/Vol] 9.5 mg/dL Normal 7.6-11.0 [facility] Comment on above: Performed By: #### L 500.2500, L100.0100 ####[facility] [address] [place], [address] Chloride [Moles/Vol] 98 mmol/L Normal 98-108 [facility] Comment on above: Performed By: #### L 500.2500, L100.0100 ####[facility] [address] [place], [address] CO2 [Moles/Vol] 18.3 mmol/L Low 21.0-32.0 [facility] Comment on above: Performed By: #### L 500.2500, L100.0100 ####[facility] [address] [place], [address] Creatinine [Mass/Vol] 1.79 mg/dL High 0.70-1.20 [facility] Comment on above: Performed By: #### L 500.2500, L100.0100 ####[facility] [address] [place], [address] ECRCL 31.27 ml/min Low 50-250 [facility] Comment on above: Performed By: #### L 500.2500, L100.0100 ####[facility] [address] [place], [address] GAP 13 Normal 5-15 [facility] Comment on above: Performed By: #### L 500.2500, L100.0100 ####[facility] [address] [place], [address] GFR/1.73 sq M.predicted among non-blacks MDRD (S/P/Bld) [Vol rate/Area] 28 mL/min/{1.73_m2} Low >60 [facility] Comment on above: Result Comment: mL/m in/1.73m2 CKD-EPI Creatinine Equation (2020) Performed By: #### L 500.2500, L100.0100 ####[facility] [address] [place], [address] Glucose [Mass/Vol] 109 mg/dL High 70-99 [facility] Comment on above: Performed By: #### L 500.2500, L100.0100 ####[facility] [address] [place], [address] Potassium [Moles/Vol] 3.9 mmol/L Normal 3.3-5.1 [facility] Comment on above: Performed By: #### L 500.2500, L100.0100 ####[facility] [address] [place], [address] Sodium [Moles/Vol] 129 mmol/L Low 133-145 [facility] Comment on above: Performed By: #### L 500.2500, L100.0100 ####[facility] [address] [place], [address] Urea nitrogen [Mass/Vol] 39 mg/dL High 4-19 [facility] Comment on above: Performed By: #### L 500.2500, L100.0100 ####[facility] [address] [place], [address] Bedside Glucoseon 05-24-2024 FINGERSTICK GLU 141 mg/dL High 74-106 [facility] Comment on above: Result Comment: JASON GEMENT OF PATIENT CARE PER NURSING PROTOCOL Performed By: #### L 501.080 ####[facility] [address] [place], [address] FINGERSTICK GLU 165 mg/dL High 74-106 [facility] Comment on above: Result Comment: JASON GEMENT OF PATIENT CARE PER NURSING PROTOCOL Performed By: #### L 501.080 ####[facility] [address] [place], [address] FINGERSTICK GLU 112 mg/dL High 74-106 [facility] Comment on above: Result Comment: JASON GEMENT OF PATIENT CARE PER NURSING PROTOCOL Performed By: #### L 501.080 ####[facility] [address] [place], [address] CBC W/Diff, Automatedon 03-0 Absolute Lymph 1.64 X10 3/uL Normal 0.83-4.51 [facility] Comment on above: Performed By: #### L 500.2500, L100.0100 ####[facility] [address] [place], [address] Absolute Neut 7.0 X10 3/uL Normal 2.0-7.7 [facility] Comment on above: Performed By: #### L 500.2500, L100.0100 ####[facility] [address] [place], [address] Basophils/100 WBC (Bld) 0.5 % Normal 0-1 [facility] Comment on above: Performed By: #### L 500.2500, L100.0100 ####[facility] [address] [place], [address] Eosinophils/100 WBC (Bld) 0.7 % Normal 0-5 [facility] Comment on above: Performed By: #### L 500.2500, L100.0100 ####[facility] [address] [place], [address] Erythrocyte distribution width (RBC) [Ratio] 16.0 % High 11.6-14.6 [facility] Comment on above: Performed By: #### L 500.2500, L100.0100 ####[facility] [address] [place], [address] Hematocrit (Bld) [Volume fraction] 26.9 % Low 37-47 [facility] Comment on above: Performed By: #### L 500.2500, L100.0100 ####[facility] [address] [place], [address] Hemoglobin (Bld) [Mass/Vol] 8.8 g/dL Low 12.0-15.0 [facility] Comment on above: Performed By: #### L 500.2500, L100.0100 ####[facility] [address] [place], [address] IG% 0.600 Normal 0.0-0.9 [facility] Comment on above: Result Comment: IG% - Immature Granulocytes (promyelocytes, myelocytes andmetamyelocytes) > 1% indicates that a LEFT SHIFT is Present. Performed By: #### L 500.2500, L100.0100 ####[facility] [address] [place], [address] Lymphocytes/100 WBC (Bld) 17.4 % Low 19-41 [facility] Comment on above: Performed By: #### L 500.2500, L100.0100 ####[facility] [address] [place], [address] MCH (RBC) [Entitic mass] 32.5 pg High 27.0-32.0 [facility] Comment on above: Performed By: #### L 500.2500, L100.0100 ####[facility] [address] [place], [address] MCHC (RBC) [Mass/Vol] 32.7 g/dL Normal 32-36 [facility] Comment on above: Performed By: #### L 500.2500, L100.0100 ####[facility] [address] [place], [address] MCV (RBC) [Entitic vol] 99.3 fL High 81-99 [facility] Comment on above: Performed By: #### L 500.2500, L100.0100 ####[facility] [address] [place], [address] Monocytes/100 WBC (Bld) 6.9 % Normal 0-10 [facility] Comment on above: Performed By: #### L 500.2500, L100.0100 ####[facility] [address] [place], [address] Neutrophils/100 WBC (Bld) 73.9 % High 47-70 [facility] Comment on above: Performed By: #### L 500.2500, L100.0100 ####[facility] [address] [place], [address] Nucleated RBC (Bld) [#/Vol] 0 10*3/uL Normal 0-5 [facility] Comment on above: Performed By: #### L 500.2500, L100.0100 ####[facility] [address] [place], [address] Platelet mean volume (Bld) [Entitic vol] 9.4 fL Normal 6.2-12.0 [facility] Comment on above: Performed By: #### L 500.2500, L100.0100 ####[facility] [address] [place], [address] Platelets (Bld) [#/Vol] 289 10*3/uL Normal 150-450 [facility] Comment on above: Performed By: #### L 500.2500, L100.0100 ####[facility] [address] [place], [address] RBC (Bld) [#/Vol] 2.71 10*6/uL Low 4.2-5.4 [facility] Comment on above: Performed By: #### L 500.2500, L100.0100 ####[facility] [address] [place], [address] RDW SD 56.1 fl High 35.1-43.9 [facility] Comment on above: Performed By: #### L 500.2500, L100.0100 ####[facility] [address] [place], [address] WBC (Bld) [#/Vol] 9.4 10*3/uL Normal 4.4-11.0 [facility] [facility] Comment on above: Performed By: #### L 500.2500, L100.0100 ####[facility] [address] [place], [address] Basic Metabolic Profile (BMP )on 05-23-2024 BUN/CRE 23.4 RATIO High 10-20 [facility] Comment on above: Performed By: #### L 100.0100, L500.2500 ####[facility] [address] [place], [address] Calcium [Mass/Vol] 9.7 mg/dL Normal 7.6-11.0 [facility] Comment on above: Performed By: #### L 100.0100, L500.2500 ####[facility] [address] [place], [address] Chloride [Moles/Vol] 98 mmol/L Normal 98-108 [facility] Comment on above: Performed By: #### L 100.0100, L500.2500 ####[facility] [address] [place], [address] CO2 [Moles/Vol] 16.5 mmol/L Low 21.0-32.0 [facility] Comment on above: Performed By: #### L 100.0100, L500.2500 ####[facility] [address] [place], [address] Creatinine [Mass/Vol] 1.88 mg/dL High 0.70-1.20 [facility] Comment on above: Performed By: #### L 100.0100, L500.2500 ####[facility] [address] [place], [address] ECRCL 29.77 ml/min Low 50-250 [facility] Comment on above: Performed By: #### L 100.0100, L500.2500 ####[facility] [address] [place], [address] GAP 16 High 5-15 [facility] Comment on above: Performed By: #### L 100.0100, L500.2500 ####[facility] [address] [place], [address] GFR/1.73 sq M.predicted among non-blacks MDRD (S/P/Bld) [Vol rate/Area] 27 mL/min/{1.73_m2} Low >60 [facility] Comment on above: Result Comment: mL/m in/1.73m2 CKD-EPI Creatinine Equation (2020) Performed By: #### L 100.0100, L500.2500 ####[facility] [address] [place], [address] Glucose [Mass/Vol] 118 mg/dL High 70-99 [facility] Comment on above: Performed By: #### L 100.0100, L500.2500 ####[facility] [address] [place], [address] Potassium [Moles/Vol] 4.3 mmol/L Normal 3.3-5.1 [facility] Comment on above: Performed By: #### L 100.0100, L500.2500 ####[facility] [address] [place], [address] Sodium [Moles/Vol] 130 mmol/L Low 133-145 [facility] Comment on above: Performed By: #### L 100.0100, L500.2500 ####[facility] [address] [place], [address] Urea nitrogen [Mass/Vol] 44 mg/dL High 4-19 [facility] Comment on above: Performed By: #### L 100.0100, L500.2500 ####[facility] [address] [place], [address] Bedside Glucoseon 05-23-2024 FINGERSTICK GLU 214 mg/dL High 74-106 [facility] Comment on above: Result Comment: JASON GEMENT OF PATIENT CARE PER NURSING PROTOCOL Performed By: #### L 501.080 ####[facility] [address] [place], [address] FINGERSTICK GLU 172 mg/dL High 74-106 [facility] Comment on above: Result Comment: JASON GEMENT OF PATIENT CARE PER NURSING PROTOCOL Performed By: #### L 501.080 ####[facility] [address] [place], [address] FINGERSTICK GLU 189 mg/dL High 74-106 [facility] Comment on above: Result Comment: JASON GEMENT OF PATIENT CARE PER NURSING PROTOCOL Performed By: #### L 501.080 ####[facility] [address] [place], [address] FINGERSTICK GLU 104 mg/dL Normal 74-106 [facility] Comment on above: Result Comment: JASON GEMENT OF PATIENT CARE PER NURSING PROTOCOL Performed By: #### L 501.080 ####[facility] [address] [place], [address] FINGERSTICK GLU 94 mg/dL Normal 74-106 [facility] Comment on above: Result Comment: JASON GEMENT OF PATIENT CARE PER NURSING PROTOCOL Performed By: #### L 501.080 ####[facility] [address] [place], [address] CBC W/Diff, Automatedon 03-0 Absolute Lymph 1.22 X10 3/uL Normal 0.83-4.51 [facility] Comment on above: Performed By: #### L 100.0100, L500.2500 ####[facility] [address] [place], [address] Absolute Neut 5.8 X10 3/uL Normal 2.0-7.7 [facility] Comment on above: Performed By: #### L 100.0100, L500.2500 ####[facility] [address] [place], [address] Basophils/100 WBC (Bld) 0.8 % Normal 0-1 [facility] Comment on above: Performed By: #### L 100.0100, L500.2500 ####[facility] [address] [place], [address] Eosinophils/100 WBC (Bld) 2.3 % Normal 0-5 [facility] Comment on above: Performed By: #### L 100.0100, L500.2500 ####[facility] [address] [place], [address] Erythrocyte distribution width (RBC) [Ratio] 15.7 % High 11.6-14.6 [facility] Comment on above: Performed By: #### L 100.0100, L500.2500 ####[facility] [address] [place], [address] Hematocrit (Bld) [Volume fraction] 27.2 % Low 37-47 [facility] Comment on above: Performed By: #### L 100.0100, L500.2500 ####[facility] [address] [place], [address] Hemoglobin (Bld) [Mass/Vol] 8.8 g/dL Low 12.0-15.0 [facility] Comment on above: Performed By: #### L 100.0100, L500.2500 ####[facility] [address] [place], [address] IG% 0.600 Normal 0.0-0.9 [facility] Comment on above: Result Comment: IG% - Immature Granulocytes (promyelocytes, myelocytes andmetamyelocytes) > 1% indicates that a LEFT SHIFT is Present. Performed By: #### L 100.0100, L500.2500 ####[facility] [address] [place], [address] Lymphocytes/100 WBC (Bld) 15.6 % Low 19-41 [facility] Comment on above: Performed By: #### L 100.0100, L500.2500 ####[facility] [address] [place], [address] MCH (RBC) [Entitic mass] 32.0 pg Normal 27.0-32.0 [facility] Comment on above: Performed By: #### L 100.0100, L500.2500 ####[facility] [address] [place], [address] MCHC (RBC) [Mass/Vol] 32.4 g/dL Normal 32-36 [facility] Comment on above: Performed By: #### L 100.0100, L500.2500 ####[facility] [address] [place], [address] MCV (RBC) [Entitic vol] 98.9 fL Normal 81-99 [facility] Comment on above: Performed By: #### L 100.0100, L500.2500 ####[facility] [address] [place], [address] Monocytes/100 WBC (Bld) 6.7 % Normal 0-10 [facility] Comment on above: Performed By: #### L 100.0100, L500.2500 ####[facility] [address] [place], [address] Neutrophils/100 WBC (Bld) 74.0 % High 47-70 [facility] Comment on above: Performed By: #### L 100.0100, L500.2500 ####[facility] [address] [place], [address] Nucleated RBC (Bld) [#/Vol] 0 10*3/uL Normal 0-5 [facility] Comment on above: Performed By: #### L 100.0100, L500.2500 ####[facility] [address] [place], [address] Platelet mean volume (Bld) [Entitic vol] 9.6 fL Normal 6.2-12.0 [facility] Comment on above: Performed By: #### L 100.0100, L500.2500 ####[facility] [address] [place], [address] Platelets (Bld) [#/Vol] 274 10*3/uL Normal 150-450 [facility] Comment on above: Performed By: #### L 100.0100, L500.2500 ####[facility] [address] [place], [address] RBC (Bld) [#/Vol] 2.75 10*6/uL Low 4.2-5.4 [facility] Comment on above: Performed By: #### L 100.0100, L500.2500 ####[facility] [address] [place], [address] RDW SD 55.4 fl High 35.1-43.9 [facility] Comment on above: Performed By: #### L 100.0100, L500.2500 ####[facility] [address] [place], [address] WBC (Bld) [#/Vol] 7.8 10*3/uL Normal 4.4-11.0 [facility] Comment on above: Performed By: #### L 100.0100, L500.2500 ####[facility] [address] [place], [address] Basic Metabolic Profile (BMP )on 05-22-2024 BUN/CRE 27.1 RATIO High 10-20 [facility] Comment on above: Performed By: #### L 100.0100, L500.2500 ####[facility] [address] [place], [address] Calcium [Mass/Vol] 9.4 mg/dL Normal 7.6-11.0 [facility] Comment on above: Performed By: #### L 100.0100, L500.2500 ####[facility] [address] [place], [address] Chloride [Moles/Vol] 100 mmol/L Normal 98-108 [facility] Comment on above: Performed By: #### L 100.0100, L500.2500 ####[facility] [address] [place], [address] CO2 [Moles/Vol] 17.2 mmol/L Low 21.0-32.0 [facility] Comment on above: Performed By: #### L 100.0100, L500.2500 ####[facility] [address] [place], [address] Creatinine [Mass/Vol] 1.85 mg/dL High 0.70-1.20 [facility] Comment on above: Performed By: #### L 100.0100, L500.2500 ####[facility] [address] [place], [address] ECRCL 30.26 ml/min Low 50-250 [facility] Comment on above: Performed By: #### L 100.0100, L500.2500 ####[facility] [address] [place], [address] GAP 16 High 5-15 [facility] Comment on above: Performed By: #### L 100.0100, L500.2500 ####[facility] [address] [place], [address] GFR/1.73 sq M.predicted among non-blacks MDRD (S/P/Bld) [Vol rate/Area] 27 mL/min/{1.73_m2} Low >60 [facility] Comment on above: Result Comment: mL/m in/1.73m2 CKD-EPI Creatinine Equation (2020) Performed By: #### L 100.0100, L500.2500 ####[facility] [address] [place], [address] Glucose [Mass/Vol] 111 mg/dL High 70-99 [facility] Comment on above: Performed By: #### L 100.0100, L500.2500 ####[facility] [address] [place], [address] Potassium [Moles/Vol] 4.3 mmol/L Normal 3.3-5.1 [facility] Comment on above: Performed By: #### L 100.0100, L500.2500 ####[facility] [address] [place], [address] Sodium [Moles/Vol] 133 mmol/L Normal 133-145 [facility] Comment on above: Performed By: #### L 100.0100, L500.2500 ####[facility] [address] [place], [address] Urea nitrogen [Mass/Vol] 50 mg/dL High 4-19 [facility] Comment on above: Performed By: #### L 100.0100, L500.2500 ####[facility] [address] [place], [address] Bedside Glucoseon 05-22-2024 FINGERSTICK GLU 112 mg/dL High 74-106 [facility] Comment on above: Result Comment: JASON RODRIGUEZ OF PATIENT CARE PER NURSING PROTOCOL Performed By: #### L 501.080 ####[facility] [address] [place], [address] FINGERSTICK GLU 93 mg/dL Normal 74-106 [facility] Comment on above: Result Comment: JASON GEMENT OF PATIENT CARE PER NURSING PROTOCOL Performed By: #### L 501.080 ####[facility] [address] [place], [address] FINGERSTICK GLU 112 mg/dL High 74-106 [facility] Comment on above: Result Comment: JASON GEMENT OF PATIENT CARE PER NURSING PROTOCOL Performed By: #### L 501.080 ####[facility] [address] [place], [address] FINGERSTICK GLU 163 mg/dL High 74-106 [facility] Comment on above: Result Comment: JASON GEMENT OF PATIENT CARE PER NURSING PROTOCOL Performed By: #### L 501.080 ####[facility] [address] [place], [address] CBC W/Diff, Automatedon 03-0 7-2024 Absolute Lymph 1.11 X10 3/uL Normal 0.83-4.51 [facility] Comment on above: Performed By: #### L 100.0100, L500.2500 ####[facility] [address] [place], [address] Absolute Neut 6.8 X10 3/uL Normal 2.0-7.7 [facility] Comment on above: Performed By: #### L 100.0100, L500.2500 ####[facility] [address] [place], [address] Basophils/100 WBC (Bld) 0.5 % Normal 0-1 [facility] Comment on above: Performed By: #### L 100.0100, L500.2500 ####[facility] [address] [place], [address] Eosinophils/100 WBC (Bld) 0.3 % Normal 0-5 [facility] Comment on above: Performed By: #### L 100.0100, L500.2500 ####[facility] [address] [place], [address] Erythrocyte distribution width (RBC) [Ratio] 15.5 % High 11.6-14.6 [facility] Comment on above: Performed By: #### L 100.0100, L500.2500 ####[facility] [address] [place], [address] Hematocrit (Bld) [Volume fraction] 26.2 % Low 37-47 [facility] Comment on above: Performed By: #### L 100.0100, L500.2500 ####[facility] [address] [place], [address] Hemoglobin (Bld) [Mass/Vol] 8.5 g/dL Low 12.0-15.0 [facility] Comment on above: Performed By: #### L 100.0100, L500.2500 ####[facility] [address] [place], [address] IG% 0.700 Normal 0.0-0.9 [facility] Comment on above: Result Comment: IG% - Immature Granulocytes (promyelocytes, myelocytes andmetamyelocytes) > 1% indicates that a LEFT SHIFT is Present. Performed By: #### L 100.0100, L500.2500 ####[facility] [address] [place], [address] Lymphocytes/100 WBC (Bld) 12.9 % Low 19-41 [facility] Comment on above: Performed By: #### L 100.0100, L500.2500 ####[facility] [address] [place], [address] MCH (RBC) [Entitic mass] 32.4 pg High 27.0-32.0 [facility] Comment on above: Performed By: #### L 100.0100, L500.2500 ####[facility] [address] [place], [address] MCHC (RBC) [Mass/Vol] 32.4 g/dL Normal 32-36 [facility] Comment on above: Performed By: #### L 100.0100, L500.2500 ####[facility] [address] [place], [address] MCV (RBC) [Entitic vol] 100.0 fL High 81-99 [facility] Comment on above: Performed By: #### L 100.0100, L500.2500 ####[facility] [address] [place], [address] Monocytes/100 WBC (Bld) 6.3 % Normal 0-10 [facility] Comment on above: Performed By: #### L 100.0100, L500.2500 ####[facility] [address] [place], [address] Neutrophils/100 WBC (Bld) 79.3 % High 47-70 [facility] Comment on above: Performed By: #### L 100.0100, L500.2500 ####[facility] [address] [place], [address] Nucleated RBC (Bld) [#/Vol] 0 10*3/uL Normal 0-5 [facility] Comment on above: Performed By: #### L 100.0100, L500.2500 ####[facility] [address] [place], [address] Platelet mean volume (Bld) [Entitic vol] 9.3 fL Normal 6.2-12.0 [facility] Comment on above: Performed By: #### L 100.0100, L500.2500 ####[facility] [address] [place], [address] Platelets (Bld) [#/Vol] 260 10*3/uL Normal 150-450 [facility] Comment on above: Performed By: #### L 100.0100, L500.2500 ####[facility] [address] [place], [address] RBC (Bld) [#/Vol] 2.62 10*6/uL Low 4.2-5.4 [facility] Comment on above: Performed By: #### L 100.0100, L500.2500 ####[facility] [address] [place], [address] RDW SD 56.0 fl High 35.1-43.9 [facility] Comment on above: Performed By: #### L 100.0100, L500.2500 ####[facility] [address] [place], [address] WBC (Bld) [#/Vol] 8.6 10*3/uL Normal 4.4-11.0 [facility] Comment on above: Performed By: #### L 100.0100, L500.2500 ####[facility] [address] [place], [address] Basic Metabolic Profile (BMP )on 05-21-2024 BUN/CRE 26.5 RATIO High 10-20 [facility] Comment on above: Performed By: #### L 500.2500, L100.0100 ####[facility] [address] [place], [address] Calcium [Mass/Vol] 9.9 mg/dL Normal 7.6-11.0 [facility] Comment on above: Performed By: #### L 500.2500, L100.0100 ####[facility] [address] [place], [address] Chloride [Moles/Vol] 95 mmol/L Low 98-108 [facility] Comment on above: Performed By: #### L 500.2500, L100.0100 ####[facility] [address] [place], [address] CO2 [Moles/Vol] 19.8 mmol/L Low 21.0-32.0 [facility] Comment on above: Performed By: #### L 500.2500, L100.0100 ####[facility] [address] [place], [address] Creatinine [Mass/Vol] 1.98 mg/dL High 0.70-1.20 [facility] Comment on above: Performed By: #### L 500.2500, L100.0100 ####[facility] [address] [place], [address] ECRCL 27.17 ml/min Low 50-250 [facility] Comment on above: Performed By: #### L 500.2500, L100.0100 ####[facility] [address] [place], [address] GAP 13 Normal 5-15 [facility] Comment on above: Performed By: #### L 500.2500, L100.0100 ####[facility] [address] [place], [address] GFR/1.73 sq M.predicted among non-blacks MDRD (S/P/Bld) [Vol rate/Area] 25 mL/min/{1.73_m2} Low >60 [facility] Comment on above: Result Comment: mL/m in/1.73m2 CKD-EPI Creatinine Equation (2020) Performed By: #### L 500.2500, L100.0100 ####[facility] [address] [place], [address] Glucose [Mass/Vol] 174 mg/dL High 70-99 [facility] Comment on above: Performed By: #### L 500.2500, L100.0100 ####[facility] [address] [place], [address] Potassium [Moles/Vol] 4.4 mmol/L Normal 3.3-5.1 [facility] Comment on above: Performed By: #### L 500.2500, L100.0100 ####[facility] [address] [place], [address] Sodium [Moles/Vol] 127 mmol/L Low 133-145 [facility] Comment on above: Performed By: #### L 500.2500, L100.0100 ####[facility] [address] [place], [address] Urea nitrogen [Mass/Vol] 53 mg/dL High 4-19 [facility] Comment on above: Performed By: #### L 500.2500, L100.0100 ####[facility] [address] [place], [address] Bedside Glucoseon 05-21-2024 FINGERSTICK GLU 235 mg/dL High 74-106 [facility] Comment on above: Result Comment: JASON GEMENT OF PATIENT CARE PER NURSING PROTOCOL Performed By: #### L 501.080 ####[facility] [address] [place], [address] FINGERSTICK GLU 161 mg/dL High 74-106 [facility] Comment on above: Result Comment: JASON GEMENT OF PATIENT CARE PER NURSING PROTOCOL Performed By: #### L 501.080 ####[facility] [address] [place], [address] FINGERSTICK GLU 124 mg/dL High 74-106 [facility] Comment on above: Result Comment: JASON GEMENT OF PATIENT CARE PER NURSING PROTOCOL Performed By: #### L 501.080 ####[facility] [address] [place], [address] Brain/Head without Contrasto n 05-21-2024 Brain/Head without Contrast Normal [facility] CBC W/Diff, Automatedon 03-0 Absolute Lymph 1.03 X10 3/uL Normal 0.83-4.51 [facility] Comment on above: Performed By: #### L 500.4050, L100.0100 ####[facility] [address] [place], [address] Absolute Neut 7.6 X10 3/uL Normal 2.0-7.7 [facility] Comment on above: Performed By: #### L 500.4050, L100.0100 ####[facility] [address] [place], [address] Basophils/100 WBC (Bld) 0.5 % Normal 0-1 [facility] Comment on above: Performed By: #### L 500.4050, L100.0100 ####[facility] [address] [place], [address] Eosinophils/100 WBC (Bld) 1.3 % Normal 0-5 [facility] Comment on above: Performed By: #### L 500.4050, L100.0100 ####[facility] [address] [place], [address] Erythrocyte distribution width (RBC) [Ratio] 15.8 % High 11.6-14.6 [facility] Comment on above: Performed By: #### L 500.4050, L100.0100 ####[facility] [address] [place], [address] Hematocrit (Bld) [Volume fraction] 27.3 % Low 37-47 [facility] Comment on above: Performed By: #### L 500.4050, L100.0100 ####[facility] [address] [place], [address] Hemoglobin (Bld) [Mass/Vol] 9.0 g/dL Low 12.0-15.0 [facility] Comment on above: Performed By: #### L 500.4050, L100.0100 ####[facility] [address] [place], [address] IG% 0.700 Normal 0.0-0.9 [facility] Comment on above: Result Comment: IG% - Immature Granulocytes (promyelocytes, myelocytes andmetamyelocytes) > 1% indicates that a LEFT SHIFT is Present. Performed By: #### L 500.4050, L100.0100 ####[facility] [address] [place], [address] Lymphocytes/100 WBC (Bld) 10.9 % Low 19-41 [facility] Comment on above: Performed By: #### L 500.4050, L100.0100 ####[facility] [address] [place], [address] MCH (RBC) [Entitic mass] 32.0 pg Normal 27.0-32.0 [facility] Comment on above: Performed By: #### L 500.4050, L100.0100 ####[facility] [address] [place], [address] MCHC (RBC) [Mass/Vol] 33.0 g/dL Normal 32-36 [facility] Comment on above: Performed By: #### L 500.4050, L100.0100 ####[facility] [address] [place], [address] MCV (RBC) [Entitic vol] 97.2 fL Normal 81-99 [facility] Comment on above: Performed By: #### L 500.4050, L100.0100 ####[facility] [address] [place], [address] Monocytes/100 WBC (Bld) 6.2 % Normal 0-10 [facility] Comment on above: Performed By: #### L 500.4050, L100.0100 ####[facility] [address] [place], [address] Neutrophils/100 WBC (Bld) 80.4 % High 47-70 [facility] Comment on above: Performed By: #### L 500.4050, L100.0100 ####[facility] [address] [place], [address] Nucleated RBC (Bld) [#/Vol] 0 10*3/uL Normal 0-5 [facility] Comment on above: Performed By: #### L 500.4050, L100.0100 ####[facility] [address] [place], [address] Platelet mean volume (Bld) [Entitic vol] 9.6 fL Normal 6.2-12.0 [facility] Comment on above: Performed By: #### L 500.4050, L100.0100 ####[facility] [address] [place], [address] Platelets (Bld) [#/Vol] 309 10*3/uL Normal 150-450 [facility] Comment on above: Performed By: #### L 500.4050, L100.0100 ####[facility] [address] [place], [address] RBC (Bld) [#/Vol] 2.81 10*6/uL Low 4.2-5.4 [facility] Comment on above: Performed By: #### L 500.4050, L100.0100 ####[facility] [address] [place], [address] RDW SD 55.8 fl High 35.1-43.9 [facility] Comment on above: Performed By: #### L 500.4050, L100.0100 ####[facility] [address] [place], [address] WBC (Bld) [#/Vol] 9.5 10*3/uL Normal 4.4-11.0 [facility] Comment on above: Performed By: #### L 500.4050, L100.0100 ####[facility] [address] [place], [address] Absolute Lymph 1.05 X10 3/uL Normal 0.83-4.51 [facility] Comment on above: Performed By: #### L 500.2500, L100.0100 ####[facility] [address] [place], [address] Absolute Neut 6.9 X10 3/uL Normal 2.0-7.7 [facility] Comment on above: Performed By: #### L 500.2500, L100.0100 ####[facility] [address] [place], [address] Basophils/100 WBC (Bld) 0.6 % Normal 0-1 [facility] Comment on above: Performed By: #### L 500.2500, L100.0100 ####[facility] [address] [place], [address] Eosinophils/100 WBC (Bld) 1.1 % Normal 0-5 [facility] Comment on above: Performed By: #### L 500.2500, L100.0100 ####[facility] [address] [place], [address] Erythrocyte distribution width (RBC) [Ratio] 15.2 % High 11.6-14.6 [facility] Comment on above: Performed By: #### L 500.2500, L100.0100 ####[facility] [address] [place], [address] Hematocrit (Bld) [Volume fraction] 26.9 % Low 37-47 [facility] Comment on above: Performed By: #### L 500.2500, L100.0100 ####[facility] [address] [place], [address] Hemoglobin (Bld) [Mass/Vol] 8.6 g/dL Low 12.0-15.0 [facility] Comment on above: Performed By: #### L 500.2500, L100.0100 ####[facility] [address] [place], [address] IG% 0.700 Normal 0.0-0.9 [facility] Comment on above: Result Comment: IG% - Immature Granulocytes (promyelocytes, myelocytes andmetamyelocytes) > 1% indicates that a LEFT SHIFT is Present. Performed By: #### L 500.2500, L100.0100 ####[facility] [address] [place], [address] Lymphocytes/100 WBC (Bld) 12.0 % Low 19-41 [facility] Comment on above: Performed By: #### L 500.2500, L100.0100 ####[facility] [address] [place], [address] MCH (RBC) [Entitic mass] 31.4 pg Normal 27.0-32.0 [facility] Comment on above: Performed By: #### L 500.2500, L100.0100 ####[facility] [address] [place], [address] MCHC (RBC) [Mass/Vol] 32.0 g/dL Normal 32-36 [facility] Comment on above: Performed By: #### L 500.2500, L100.0100 ####[facility] [address] [place], [address] MCV (RBC) [Entitic vol] 98.2 fL Normal 81-99 [facility] Comment on above: Performed By: #### L 500.2500, L100.0100 ####[facility] [address] [place], [address] Monocytes/100 WBC (Bld) 6.7 % Normal 0-10 [facility] Comment on above: Performed By: #### L 500.2500, L100.0100 ####[facility] [address] [place], [address] Neutrophils/100 WBC (Bld) 78.9 % High 47-70 [facility] Comment on above: Performed By: #### L 500.2500, L100.0100 ####[facility] [address] [place], [address] Nucleated RBC (Bld) [#/Vol] 0 10*3/uL Normal 0-5 [facility] Comment on above: Performed By: #### L 500.2500, L100.0100 ####[facility] [address] [place], [address] Platelet mean volume (Bld) [Entitic vol] 9.0 fL Normal 6.2-12.0 [facility] Comment on above: Performed By: #### L 500.2500, L100.0100 ####[facility] [address] [place], [address] Platelets (Bld) [#/Vol] 277 10*3/uL Normal 150-450 [facility] Comment on above: Performed By: #### L 500.2500, L100.0100 ####[facility] [address] [place], [address] RBC (Bld) [#/Vol] 2.74 10*6/uL Low 4.2-5.4 [facility] Comment on above: Performed By: #### L 500.2500, L100.0100 ####[facility] [address] [place], [address] RDW SD 54.3 fl High 35.1-43.9 [facility] Comment on above: Performed By: #### L 500.2500, L100.0100 ####[facility] [address] [place], [address] WBC (Bld) [#/Vol] 8.8 10*3/uL Normal 4.4-11.0 [facility] Comment on above: Performed By: #### L 500.2500, L100.0100 ####[facility] [address] [place], [address] COVID 19 AG RAPID ([place])on 05-21-2024 SARS-CoV-2 (COVID-19) RNA ALY+probe Ql (Unsp spec) Normal [facility] Comment on above: Performed By: #### M 100.505 ####[facility] [address] [place], [address] Chest 1 View (Portable)on Chest 1 View (Portable) Normal [facility] Comprehensive Metabolic Prof ilon 05-21-2024 Albumin [Mass/Vol] 3.9 g/dL Normal 3.4-4.8 [facility] Comment on above: Performed By: #### L 500.4050, L100.0100 ####[facility] [address] [place], [address] Albumin/Globulin [Mass ratio] 1.2 {ratio} Normal 0.9-2.4 [facility] Comment on above: Performed By: #### L 500.4050, L100.0100 ####[facility] [address] [place], [address] ALK PHOS 139 U/L High 35-104 [facility] Comment on above: Performed By: #### L 500.4050, L100.0100 ####[facility] [address] [place], [address] ALT [Catalytic activity/Vol] 20 U/L Normal <=34 [facility] Comment on above: Performed By: #### L 500.4050, L100.0100 ####[facility] [address] [place], [address] AST [Catalytic activity/Vol] 20 U/L Normal <=31 [facility] Comment on above: Result Comment: Hemo lysis present, Results??could be affected.?? Performed By: #### L 500.4050, L100.0100 ####[facility] [address] [place], [address] Bilirubin [Mass/Vol] 0.34 mg/dL Normal 0.00-1.30 [facility] Comment on above: Performed By: #### L 500.4050, L100.0100 ####[facility] [address] [place], [address] BUN/CRE 25.6 RATIO High 10-20 [facility] Comment on above: Performed By: #### L 500.4050, L100.0100 ####[facility] [address] [place], [address] Calcium [Mass/Vol] 10.4 mg/dL Normal 7.6-11.0 [facility] Comment on above: Performed By: #### L 500.4050, L100.0100 ####[facility] [address] [place], [address] Chloride [Moles/Vol] 94 mmol/L Low 98-108 [facility] Comment on above: Performed By: #### L 500.4050, L100.0100 ####[facility] [address] [place], [address] CO2 [Moles/Vol] 19.9 mmol/L Low 21.0-32.0 [facility] Comment on above: Performed By: #### L 500.4050, L100.0100 ####[facility] [address] [place], [address] Creatinine [Mass/Vol] 2.06 mg/dL High 0.70-1.20 [facility] Comment on above: Performed By: #### L 500.4050, L100.0100 ####[facility] [address] [place], [address] ECRCL 27.17 ml/min Low 50-250 [facility] Comment on above: Performed By: #### L 500.4050, L100.0100 ####[facility] [address] [place], [address] GAP 14 Normal 5-15 [facility] Comment on above: Performed By: #### L 500.4050, L100.0100 ####[facility] [address] [place], [address] GFR/1.73 sq M.predicted among non-blacks MDRD (S/P/Bld) [Vol rate/Area] 24 mL/min/{1.73_m2} Low >60 [facility] Comment on above: Result Comment: mL/m in/1.73m2 CKD-EPI Creatinine Equation (2020) Performed By: #### L 500.4050, L100.0100 ####[facility] [address] [place], [address] Globulin (S) [Mass/Vol] 3.1 g/dL Normal 2.2-4.2 [facility] Comment on above: Performed By: #### L 500.4050, L100.0100 ####[facility] [address] [place], [address] Glucose [Mass/Vol] 170 mg/dL High 70-99 [facility] Comment on above: Performed By: #### L 500.4050, L100.0100 ####[facility] [address] [place], [address] Potassium [Moles/Vol] 4.8 mmol/L Normal 3.3-5.1 [facility] Comment on above: Result Comment: Hemo lysis present, Results??could be affected.?? Performed By: #### L 500.4050, L100.0100 ####[facility] [address] [place], [address] Sodium [Moles/Vol] 128 mmol/L Low 133-145 [facility] Comment on above: Performed By: #### L 500.4050, L100.0100 ####[facility] [address] [place], [address] T PROT 7.0 g/dL Normal 5.9-8.4 [facility] Comment on above: Performed By: #### L 500.4050, L100.0100 ####[facility] [address] [place], [address] Urea nitrogen [Mass/Vol] 53 mg/dL High 4-19 [facility] Comment on above: Performed By: #### L 500.4050, L100.0100 ####[facility] [address] [place], [address] Emergency Department Summary on 05-21-2024 Emergency Department Summary Normal [facility] H AND P Exam - Hospitaliston 05-21-2024 H&P Exam - Hospitalist Normal [facility] M100.678on 05-21-2024 M100.678 Pending SARS-CoV-2 (COVID 19) Negative INFLUENZA A Negative INFLUENZA B Negative RSV PCR Negative Normal [facility] Comment on above: Performed By: #### M 100.678, L400.0001 ####[facility] [address] [place], [address] Urinalysis, Completeon 05-21 EPI,SQUAMOUS 0-5 SEEN Normal 5-10 [facility] Comment on above: Order Comment: CLEAN CATCH Performed By: #### M 100.678, L400.0001 ####[facility] [address] [place], [address] RBC 0-5 SEEN Normal 0-5 [facility] Comment on above: Order Comment: CLEAN CATCH Performed By: #### M 100.678, L400.0001 ####[facility] [address] [place], [address] BACTERIA 0 SEEN Normal None Seen [facility] Comment on above: Order Comment: CLEAN CATCH Performed By: #### M 100.678, L400.0001 ####[facility] [address] [place], [address] Mucus Ql (Urine sed) 0 SEEN Normal [facility] Comment on above: Order Comment: CLEAN CATCH Performed By: #### M 100.678, L400.0001 ####[facility] [address] [place], [address] WBC 0 SEEN Normal 0-5 [facility] Comment on above: Order Comment: CLEAN CATCH Performed By: #### M 100.678, L400.0001 ####[facility] [address] [place], [address] Venous Blood Gason 5 Blood Gas Type MARY Normal [facility] Comment on above: Performed By: #### L 9000.0810 ####[facility] [address] [place], [address] CO2 [Moles/Vol] 22 mmol/L Low 23-33 [facility] Comment on above: Performed By: #### L 9000.0810 ####[facility] [address] [place], [address] FI02 3.0 Normal [facility] Comment on above: Performed By: #### L 9000.0810 ####[facility] [address] [place], [address] HCO3 (Bld) [Moles/Vol] 21 mmol/L Low 22-26 [facility] Comment on above: Performed By: #### L 9000.0810 ####[facility] [address] [place], [address] O2 Delivery Dev Cannula Normal [facility] Comment on above: Performed By: #### L 9000.0810 ####[facility] [address] [place], [address] SITE Not entered Normal [facility] Comment on above: Performed By: #### L 9000.0810 ####[facility] [address] [place], [address] VBG BE -5 mmol/L Low -1.0-3.5 [facility] Comment on above: Performed By: #### L 9000.0810 ####[facility] [address] [place], [address] VBG pCO2 34.1 mmHg Low 41-51 [facility] Comment on above: Performed By: #### L 9000.0810 ####[facility] [address] [place], [address] VBG pH 7.39 Normal 7.32-7.42 [facility] Comment on above: Performed By: #### L 9000.0810 ####[facility] [address] [place], [address] VBG PO2 65 mmHg High 25-40 [facility] Comment on above: Performed By: #### L 9000.0810 ####[facility] [address] [place], [address] VBG SO2 93 High 50-70 [facility] Comment on above: Performed By: #### L 9000.0810 ####[facility] [address] [place], [address] Bedside Glucoseon 05-20-2024 FINGERSTICK GLU 164 mg/dL High 74-106 [facility] Comment on above: Result Comment: JASON RODRIGUEZ OF PATIENT CARE PER NURSING PROTOCOL Performed By: #### L 501.080 ####[facility] [address] [place], [address] FINGERSTICK GLU 95 mg/dL Normal 74-106 [facility] Comment on above: Result Comment: JASON GEMENT OF PATIENT CARE PER NURSING PROTOCOL Performed By: #### L 501.080 ####[facility] [address] [place], [address] Bedside Glucoseon 05-19-2024 FINGERSTICK GLU 191 mg/dL High 74-106 [facility] Comment on above: Result Comment: JASON GEMENT OF PATIENT CARE PER NURSING PROTOCOL Performed By: #### L 501.080 ####[facility] [address] [place], [address] FINGERSTICK GLU 98 mg/dL Normal 74-106 [facility] Comment on above: Result Comment: JASON GEMENT OF PATIENT CARE PER NURSING PROTOCOL Performed By: #### L 501.080 ####[facility] [address] [place], [address] Basic Metabolic Profile (BMP )on 05-18-2024 Anion gap [Moles/Vol] 13 mmol/L Normal 5-15 [facility] Comment on above: Performed By: #### L 500.2500 ####[facility] [address] [place], [address] BUN/CRE 31.0 RATIO High 10-20 [facility] Comment on above: Performed By: #### L 500.2500 ####[facility] [address] [place], [address] Calcium [Mass/Vol] 9.9 mg/dL Normal 7.6-11.0 [facility] Comment on above: Performed By: #### L 500.2500 ####[facility] [address] [place], [address] Chloride [Moles/Vol] 100 mmol/L Normal 96-108 [facility] Comment on above: Performed By: #### L 500.2500 ####[facility] [address] [place], [address] CO2 [Moles/Vol] 20.9 mmol/L Low 22.0-29.0 [facility] Comment on above: Performed By: #### L 500.2500 ####[facility] [address] [place], [address] Creatinine [Mass/Vol] 1.82 mg/dL High 0.70-1.20 [facility] Comment on above: Performed By: #### L 500.2500 ####[facility] [address] [place], [address] ECRCL 29.73 ml/min Low 50-250 [facility] Comment on above: Performed By: #### L 500.2500 ####[facility] [address] [place], [address] GFR/1.73 sq M.predicted among non-blacks MDRD (S/P/Bld) [Vol rate/Area] 28 mL/min/{1.73_m2} Low >60 [facility] Comment on above: Result Comment: mL/m in/1.73m2 CKD-EPI Creatinine Equation (2020) Performed By: #### L 500.2500 ####[facility] [address] [place], [address] Glucose [Mass/Vol] 114 mg/dL High 70-99 [facility] Comment on above: Performed By: #### L 500.2500 ####[facility] [address] [place], [address] Potassium [Moles/Vol] 4.6 mmol/L Normal 3.3-5.1 [facility] Comment on above: Performed By: #### L 500.2500 ####[facility] [address] [place], [address] Sodium [Moles/Vol] 134 mmol/L Normal 133-145 [facility] Comment on above: Performed By: #### L 500.2500 ####[facility] [address] [place], [address] Urea nitrogen [Mass/Vol] 57 mg/dL High 4-19 [facility] Comment on above: Performed By: #### L 500.2500 ####[facility] [address] [place], [address] BUN Normal 7-18 [facility] Comment on above: Result Comment: WILL REORDER Performed By: #### L 100.0100, L500.2500 ####[facility] [address] [place], [address] BUN/CRE Normal 10-20 [facility] Comment on above: Result Comment: WILL REORDER Performed By: #### L 100.0100, L500.2500 ####[facility] [address] [place], [address] Calcium Normal 8.5-10.1 [facility] Comment on above: Result Comment: WILL REORDER Performed By: #### L 100.0100, L500.2500 ####[facility] [address] [place], [address] CL Normal 98-107 [facility] Comment on above: Result Comment: WILL REORDER Performed By: #### L 100.0100, L500.2500 ####[facility] [address] [place], [address] CO2 Normal 21.0-32.0 [facility] Comment on above: Result Comment: WILL REORDER Performed By: #### L 100.0100, L500.2500 ####[facility] [address] [place], [address] CREAT,SERUM Normal 0.55-1.02 [facility] Comment on above: Result Comment: WILL REORDER Performed By: #### L 100.0100, L500.2500 ####[facility] [address] [place], [address] eGFR Normal >60 [facility] Comment on above: Result Comment: WILL REORDER Performed By: #### L 100.0100, L500.2500 ####[facility] [address] [place], [address] EST GFR - AA Normal >60 [facility] Comment on above: Result Comment: WILL REORDER Performed By: #### L 100.0100, L500.2500 ####[facility] [address] [place], [address] GAP Normal 5-15 [facility] Comment on above: Result Comment: WILL REORDER Performed By: #### L 100.0100, L500.2500 ####[facility] [address] [place], [address] GLU Normal 74-106 [facility] Comment on above: Result Comment: WILL REORDER Performed By: #### L 100.0100, L500.2500 ####[facility] [address] [place], [address] Potassium Normal 3.5-5.1 [facility] Comment on above: Result Comment: WILL REORDER Performed By: #### L 100.0100, L500.2500 ####[facility] [address] [place], [address] Basic Metabolic Profile (BMP) Normal 136-145 [facility] Comment on above: Result Comment: WILL REORDER Performed By: #### L 100.0100, L500.2500 ####[facility] [address] [place], [address] Bedside Glucoseon 05-18-2024 FINGERSTICK GLU 174 mg/dL High 74-106 [facility] Comment on above: Result Comment: JASON JENNIFER OF PATIENT CARE PER NURSING PROTOCOL Performed By: #### L 501.080 ####[facility] [address] [place], [address] FINGERSTICK GLU 63 mg/dL Low 74-106 [facility] Comment on above: Result Comment: JASON GEMENT OF PATIENT CARE PER NURSING PROTOCOL Performed By: #### L 501.080 ####[facility] [address] [place], [address] FINGERSTICK GLU 59 mg/dL Low 74-106 [facility] Comment on above: Result Comment: JASON GEMENT OF PATIENT CARE PER NURSING PROTOCOL Performed By: #### L 501.080 ####[facility] [address] [place], [address] FINGERSTICK GLU 110 mg/dL High 74-106 [facility] Comment on above: Result Comment: JASON GEMENT OF PATIENT CARE PER NURSING PROTOCOL Performed By: #### L 501.080 ####[facility] [address] [place], [address] CBC W/Diff, Automatedon 03-0 3-2025 Absolute Lymph 1.30 X10 3/uL Normal 0.83-4.51 [facility] Comment on above: Performed By: #### L 100.0100, L500.2500 ####[facility] [address] [place], [address] Absolute Neut 5.9 X10 3/uL Normal 2.0-7.7 [facility] Comment on above: Performed By: #### L 100.0100, L500.2500 ####[facility] [address] [place], [address] Basophils/100 WBC (Bld) 0.6 % Normal 0-1 [facility] Comment on above: Performed By: #### L 100.0100, L500.2500 ####[facility] [address] [place], [address] Eosinophils/100 WBC (Bld) 3.5 % Normal 0-5 [facility] Comment on above: Performed By: #### L 100.0100, L500.2500 ####[facility] [address] [place], [address] Erythrocyte distribution width (RBC) [Ratio] 15.2 % High 11.6-14.6 [facility] Comment on above: Performed By: #### L 100.0100, L500.2500 ####[facility] [address] [place], [address] Hematocrit (Bld) [Volume fraction] 26.4 % Low 37-47 [facility] Comment on above: Performed By: #### L 100.0100, L500.2500 ####[facility] [address] [place], [address] Hemoglobin (Bld) [Mass/Vol] 8.3 g/dL Low 12.0-15.0 [facility] Comment on above: Performed By: #### L 100.0100, L500.2500 ####[facility] [address] [place], [address] IG% 1.000 High 0.0-0.9 [facility] Comment on above: Result Comment: IG% - Immature Granulocytes (promyelocytes, myelocytes andmetamyelocytes) > 1% indicates that a LEFT SHIFT is Present. Performed By: #### L 100.0100, L500.2500 ####[facility] [address] [place], [address] Lymphocytes/100 WBC (Bld) 15.7 % Low 19-41 [facility] Comment on above: Performed By: #### L 100.0100, L500.2500 ####[facility] [address] [place], [address] MCH (RBC) [Entitic mass] 31.9 pg Normal 27.0-32.0 [facility] Comment on above: Performed By: #### L 100.0100, L500.2500 ####[facility] [address] [place], [address] MCHC (RBC) [Mass/Vol] 31.4 g/dL Low 32-36 [facility] Comment on above: Performed By: #### L 100.0100, L500.2500 ####[facility] [address] [place], [address] MCV (RBC) [Entitic vol] 101.5 fL High 81-99 [facility] Comment on above: Performed By: #### L 100.0100, L500.2500 ####[facility] [address] [place], [address] Monocytes/100 WBC (Bld) 7.7 % Normal 0-10 [facility] Comment on above: Performed By: #### L 100.0100, L500.2500 ####[facility] [address] [place], [address] Neutrophils/100 WBC (Bld) 71.5 % High 47-70 [facility] Comment on above: Performed By: #### L 100.0100, L500.2500 ####[facility] [address] [place], [address] Nucleated RBC (Bld) [#/Vol] 0 10*3/uL Normal 0-5 [facility] Comment on above: Performed By: #### L 100.0100, L500.2500 ####[facility] [address] [place], [address] Platelet mean volume (Bld) [Entitic vol] 9.0 fL Normal 6.2-12.0 [facility] Comment on above: Performed By: #### L 100.0100, L500.2500 ####[facility] [address] [place], [address] Platelets (Bld) [#/Vol] 302 10*3/uL Normal 150-450 [facility] Comment on above: Performed By: #### L 100.0100, L500.2500 ####[facility] [address] [place], [address] RBC (Bld) [#/Vol] 2.60 10*6/uL Low 4.2-5.4 [facility] Comment on above: Performed By: #### L 100.0100, L500.2500 ####[facility] [address] [place], [address] RDW SD 55.3 fl High 35.1-43.9 [facility] Comment on above: Performed By: #### L 100.0100, L500.2500 ####[facility] [address] [place], [address] WBC (Bld) [#/Vol] 8.3 10*3/uL Normal 4.4-11.0 [facility] Comment on above: Performed By: #### L 100.0100, L500.2500 ####[facility] [address] [place], [address] Urine Cultureon 05-18-2024 URC Normal [facility] Comment on above: Performed By: #### M 100.2200, L400.0001 ####[facility] [address] [place], [address] Bedside Glucoseon 05-17-2024 FINGERSTICK GLU 182 mg/dL High 74-106 [facility] Comment on above: Result Comment: JASON GEMENT OF PATIENT CARE PER NURSING PROTOCOL Performed By: #### L 501.080 ####[facility] [address] [place], [address] FINGERSTICK GLU 89 mg/dL Normal 74-106 [facility] Comment on above: Result Comment: JASON GEMENT OF PATIENT CARE PER NURSING PROTOCOL Performed By: #### L 501.080 ####[facility] [address] [place], [address] Bedside Glucoseon 05-16-2024 FINGERSTICK GLU 149 mg/dL High 74-106 [facility] Comment on above: Result Comment: JASON GEMENT OF PATIENT CARE PER NURSING PROTOCOL Performed By: #### L 501.080 ####[facility] [address] [place], [address] FINGERSTICK GLU 191 mg/dL High 74-106 [facility] Comment on above: Result Comment: JASON GEMENT OF PATIENT CARE PER NURSING PROTOCOL Performed By: #### L 501.080 ####[facility] [address] [place], [address] FINGERSTICK GLU 78 mg/dL Normal 74-106 [facility] Comment on above: Result Comment: JASON GEMENT OF PATIENT CARE PER NURSING PROTOCOL Performed By: #### L 501.080 ####[facility] [address] [place], [address] Urinalysis, Completeon 05-16 RBC 0 SEEN Normal 0-5 [facility] Comment on above: Order Comment: YANNA TER SPECIMEN Performed By: #### M 100.2200, L400.0001 ####[facility] [address] [place], [address] Bedside Glucoseon 05-15-2024 FINGERSTICK GLU 113 mg/dL High 74-106 [facility] Comment on above: Result Comment: JASON GEMENT OF PATIENT CARE PER NURSING PROTOCOL Performed By: #### L 501.080 ####[facility] [address] [place], [address] FINGERSTICK GLU 107 mg/dL High 74-106 [facility] Comment on above: Result Comment: JASON GEMENT OF PATIENT CARE PER NURSING PROTOCOL Performed By: #### L 501.080 ####[facility] [address] [place], [address] Bedside Glucoseon 05-14-2024 FINGERSTICK GLU 147 mg/dL High 74-106 [facility] Comment on above: Result Comment: JASON GEMENT OF PATIENT CARE PER NURSING PROTOCOL Performed By: #### L 501.080 ####[facility] [address] [place], [address] FINGERSTICK GLU 109 mg/dL High 74-106 [facility] Comment on above: Result Comment: JASON GEMENT OF PATIENT CARE PER NURSING PROTOCOL Performed By: #### L 501.080 ####[facility] [address] [place], [address] Bedside Glucoseon 05-13-2024 FINGERSTICK GLU 184 mg/dL High 74-106 [facility] Comment on above: Result Comment: JASON GEMENT OF PATIENT CARE PER NURSING PROTOCOL Performed By: #### L 501.080 ####[facility] [address] [place], [address] FINGERSTICK GLU 204 mg/dL High -106 [facility] Comment on above: Result Comment: JASON GEMENT OF PATIENT CARE PER NURSING PROTOCOL Performed By: #### L 501.080 ####[facility] [address] [place], [address] FINGERSTICK GLU 183 mg/dL High 74-106 [facility] Comment on above: Result Comment: JASON GEMENT OF PATIENT CARE PER NURSING PROTOCOL Performed By: #### L 501.080 ####[facility] [address] [place], [address] FINGERSTICK GLU 144 mg/dL High -106 [facility] Comment on above: Result Comment: JASON GEMENT OF PATIENT CARE PER NURSING PROTOCOL Performed By: #### L 501.080 ####[facility] [address] [place], [address] Bedside Glucoseon 05-12-2024 FINGERSTICK GLU 158 mg/dL High 74-106 [facility] Comment on above: Result Comment: JASON GEMENT OF PATIENT CARE PER NURSING PROTOCOL Performed By: #### L 501.080 ####[facility] [address] [place], [address] FINGERSTICK GLU 146 mg/dL High 74-106 [facility] Comment on above: Result Comment: JASON GEMENT OF PATIENT CARE PER NURSING PROTOCOL Performed By: #### L 501.080 ####[facility] [address] [place], [address] Femur Min 2 Viewson 05-12-19 25 Femur Min 2 Views Normal [facility] Orthopedic Visit Reporton Orthopedic Visit Report Normal [facility] Basic Metabolic Profile (BMP )on 05-11-2024 BUN/CRE 27.6 RATIO High 10-20 [facility] Comment on above: Performed By: #### L 500.2500, L100.0100 ####[facility] [address] [place], [address] CA,Total 9.8 mg/dL Normal 8.5-10.1 [facility] Comment on above: Performed By: #### L 500.2500, L100.0100 ####[facility] [address] [place], [address] Chloride [Moles/Vol] 100 mmol/L Normal 98-107 [facility] Comment on above: Performed By: #### L 500.2500, L100.0100 ####[facility] [address] [place], [address] CO2 [Moles/Vol] 24.0 mmol/L Normal 21.0-32.0 [facility] Comment on above: Performed By: #### L 500.2500, L100.0100 ####[facility] [address] [place], [address] Creatinine [Mass/Vol] 1.85 mg/dL High 0.55-1.02 [facility] Comment on above: Result Comment: The validity of the calculated GFR GFRAA in patients over70 years has not been determined. Clinical correlation isessential. Performed By: #### L 500.2500, L100.0100 ####[facility] [address] [place], [address] ECRCL 29.52 ml/min Normal [facility] Comment on above: Performed By: #### L 500.2500, L100.0100 ####[facility] [address] [place], [address] EST GFR - AA 34 mL/min Low >60 [facility] Comment on above: Result Comment: Afri can [place]i GFR Calc Performed By: #### L 500.2500, L100.0100 ####[facility] [address] [place], [address] GAP 9 Normal 5-15 [facility] Comment on above: Performed By: #### L 500.2500, L100.0100 ####[facility] [address] [place], [address] GFR/1.73 sq M.predicted among non-blacks MDRD (S/P/Bld) [Vol rate/Area] 28 mL/min/{1.73_m2} Low >60 [facility] Comment on above: Result Comment: Non- GFR Calc Performed By: #### L 500.2500, L100.0100 ####[facility] [address] [place], [address] Glucose [Mass/Vol] 138 mg/dL High 74-106 [facility] Comment on above: Result Comment: Fast ing Glucose result greater than or equal to 126 mg/dLsuggests DIABETES MELLITUS per A.D.A. criteria. Performed By: #### L 500.2500, L100.0100 ####[facility] [address] [place], [address] Potassium [Moles/Vol] 4.4 mmol/L Normal 3.5-5.1 [facility] Comment on above: Performed By: #### L 500.2500, L100.0100 ####[facility] [address] [place], [address] Sodium [Moles/Vol] 133 mmol/L Low 136-145 [facility] Comment on above: Performed By: #### L 500.2500, L100.0100 ####[facility] [address] [place], [address] Urea nitrogen [Mass/Vol] 51 mg/dL High 7-18 [facility] Comment on above: Performed By: #### L 500.2500, L100.0100 ####[facility] [address] [place], [address] Bedside Glucoseon - FINGERSTICK GLU 249 mg/dL High 74-106 [facility] Comment on above: Result Comment: JASON GEMENT OF PATIENT CARE PER NURSING PROTOCOL Performed By: #### L 501.080 ####[facility] [address] [place], [address] FINGERSTICK GLU 133 mg/dL High 74-106 [facility] Comment on above: Result Comment: JASON GEMENT OF PATIENT CARE PER NURSING PROTOCOL Performed By: #### L 501.080 ####[facility] [address] [place], [address] CBC W/Diff, Automatedon 02-2 Absolute Lymph 1.58 X10 3/uL Normal 0.83-4.51 [facility] Comment on above: Performed By: #### L 500.2500, L100.0100 ####[facility] [address] [place], [address] Absolute Neut 7.0 X10 3/uL Normal 2.0-7.7 [facility] Comment on above: Performed By: #### L 500.2500, L100.0100 ####[facility] [address] [place], [address] Basophils/100 WBC (Bld) 0.8 % Normal 0-1 [facility] Comment on above: Performed By: #### L 500.2500, L100.0100 ####[facility] [address] [place], [address] Eosinophils/100 WBC (Bld) 3.3 % Normal 0-5 [facility] Comment on above: Performed By: #### L 500.2500, L100.0100 ####[facility] [address] [place], [address] Erythrocyte distribution width (RBC) [Ratio] 14.9 % High 11.6-14.6 [facility] Comment on above: Performed By: #### L 500.2500, L100.0100 ####[facility] [address] [place], [address] Hematocrit (Bld) [Volume fraction] 26.0 % Low 37-47 [facility] Comment on above: Performed By: #### L 500.2500, L100.0100 ####[facility] [address] [place], [address] Hemoglobin (Bld) [Mass/Vol] 8.3 g/dL Low 12.0-15.0 [facility] Comment on above: Performed By: #### L 500.2500, L100.0100 ####[facility] [address] [place], [address] IG% 2.900 High 0.0-0.9 [facility] Comment on above: Result Comment: IG% - Immature Granulocytes (promyelocytes, myelocytes andmetamyelocytes) > 1% indicates that a LEFT SHIFT is Present. Performed By: #### L 500.2500, L100.0100 ####[facility] [address] [place], [address] Lymphocytes/100 WBC (Bld) 15.4 % Low 19-41 [facility] Comment on above: Performed By: #### L 500.2500, L100.0100 ####[facility] [address] [place], [address] MCH (RBC) [Entitic mass] 32.0 pg Normal 27.0-32.0 [facility] Comment on above: Performed By: #### L 500.2500, L100.0100 ####[facility] [address] [place], [address] MCHC (RBC) [Mass/Vol] 31.9 g/dL Low 32-36 [facility] Comment on above: Performed By: #### L 500.2500, L100.0100 ####[facility] [address] [place], [address] MCV (RBC) [Entitic vol] 100.4 fL High 81-99 [facility] Comment on above: Performed By: #### L 500.2500, L100.0100 ####[facility] [address] [place], [address] Monocytes/100 WBC (Bld) 9.1 % Normal 0-10 [facility] Comment on above: Performed By: #### L 500.2500, L100.0100 ####[facility] [address] [place], [address] Neutrophils/100 WBC (Bld) 68.5 % Normal 47-70 [facility] Comment on above: Performed By: #### L 500.2500, L100.0100 ####[facility] [address] [place], [address] Nucleated RBC (Bld) [#/Vol] 0 10*3/uL Normal 0-5 [facility] Comment on above: Performed By: #### L 500.2500, L100.0100 ####[facility] [address] [place], [address] Platelet mean volume (Bld) [Entitic vol] 9.3 fL Normal 6.2-12.0 [facility] Comment on above: Performed By: #### L 500.2500, L100.0100 ####[facility] [address] [place], [address] Platelets (Bld) [#/Vol] 372 10*3/uL Normal 150-450 [facility] Comment on above: Performed By: #### L 500.2500, L100.0100 ####[facility] [address] [place], [address] RBC (Bld) [#/Vol] 2.59 10*6/uL Low 4.2-5.4 [facility] Comment on above: Performed By: #### L 500.2500, L100.0100 ####[facility] [address] [place], [address] RDW SD 53.6 fl High 35.1-43.9 [facility] Comment on above: Performed By: #### L 500.2500, L100.0100 ####[facility] [address] [place], [address] WBC (Bld) [#/Vol] 10.3 10*3/uL Normal 4.4-11.0 [facility] Comment on above: Performed By: #### L 500.2500, L100.0100 ####[facility] [address] [place], [address] Bedside Glucoseon 05-10-2024 FINGERSTICK GLU 188 mg/dL High 74-106 [facility] Comment on above: Result Comment: JASON RODRIGUEZ OF PATIENT CARE PER NURSING PROTOCOL Performed By: #### L 501.080 ####[facility] [address] [place], [address] FINGERSTICK GLU 190 mg/dL High 74-106 [facility] Comment on above: Result Comment: JASON GEMENT OF PATIENT CARE PER NURSING PROTOCOL Performed By: #### L 501.080 ####[facility] [address] [place], [address] FINGERSTICK GLU 131 mg/dL High 74-106 [facility] Comment on above: Result Comment: JASON GEMENT OF PATIENT CARE PER NURSING PROTOCOL Performed By: #### L 501.080 ####[facility] [address] [place], [address] Basic Metabolic Profile (BMP )on 05-09-2024 BUN/CRE 27.8 RATIO High 10-20 [facility] Comment on above: Performed By: #### L 100.0100, L500.2500 ####[facility] [address] [place], [address] CA,Total 9.7 mg/dL Normal 8.5-10.1 [facility] Comment on above: Performed By: #### L 100.0100, L500.2500 ####[facility] [address] [place], [address] Chloride [Moles/Vol] 97 mmol/L Low 98-107 [facility] Comment on above: Performed By: #### L 100.0100, L500.2500 ####[facility] [address] [place], [address] CO2 [Moles/Vol] 25.0 mmol/L Normal 21.0-32.0 [facility] Comment on above: Performed By: #### L 100.0100, L500.2500 ####[facility] [address] [place], [address] Creatinine [Mass/Vol] 1.87 mg/dL High 0.55-1.02 [facility] Comment on above: Result Comment: The validity of the calculated GFR GFRAA in patients over70 years has not been determined. Clinical correlation isessential. Performed By: #### L 100.0100, L500.2500 ####[facility] [address] [place], [address] ECRCL 29.20 ml/min Normal [facility] Comment on above: Performed By: #### L 100.0100, L500.2500 ####[facility] [address] [place], [address] EST GFR - AA 33 mL/min Low >60 [facility] Comment on above: Result Comment: Afri can [place] GFR Calc Performed By: #### L 100.0100, L500.2500 ####[facility] [address] [place], [address] GAP 9 Normal 5-15 [facility] Comment on above: Performed By: #### L 100.0100, L500.2500 ####[facility] [address] [place], [address] GFR/1.73 sq M.predicted among non-blacks MDRD (S/P/Bld) [Vol rate/Area] 28 mL/min/{1.73_m2} Low >60 [facility] Comment on above: Result Comment: Non- GFR Calc Performed By: #### L 100.0100, L500.2500 ####[facility] [address] [place], [address] Glucose [Mass/Vol] 204 mg/dL High 74-106 [facility] Comment on above: Result Comment: Gluc ose result greater than or equal to 200 mg/dLsuggests DIABETES MELLITUS per A.D.A. criteria. Performed By: #### L 100.0100, L500.2500 ####[facility] [address] [place], [address] Potassium [Moles/Vol] 4.3 mmol/L Normal 3.5-5.1 [facility] Comment on above: Performed By: #### L 100.0100, L500.2500 ####[facility] [address] [place], [address] Sodium [Moles/Vol] 131 mmol/L Low 136-145 [facility] Comment on above: Performed By: #### L 100.0100, L500.2500 ####[facility] [address] [place], [address] Urea nitrogen [Mass/Vol] 52 mg/dL High 7-18 [facility] Comment on above: Performed By: #### L 100.0100, L500.2500 ####[facility] [address] [place], [address] Bedside Glucoseon 05-09-2024 FINGERSTICK GLU 221 mg/dL High 74-106 [facility] Comment on above: Result Comment: JASON GEMENT OF PATIENT CARE PER NURSING PROTOCOL Performed By: #### L 501.080 ####[facility] [address] [place], [address] FINGERSTICK GLU 192 mg/dL High 74-106 [facility] Comment on above: Result Comment: JASON GEMENT OF PATIENT CARE PER NURSING PROTOCOL Performed By: #### L 501.080 ####[facility] [address] [place], [address] FINGERSTICK GLU 109 mg/dL High 74-106 [facility] Comment on above: Result Comment: JASON GEMENT OF PATIENT CARE PER NURSING PROTOCOL Performed By: #### L 501.080 ####[facility] [address] [place], [address] CBC W/Diff, Automatedon 02-2 Absolute Lymph 1.57 X10 3/uL Normal 0.83-4.51 [facility] Comment on above: Performed By: #### L 100.0100, L500.2500 ####[facility] [address] [place], [address] Absolute Neut 7.3 X10 3/uL Normal 2.0-7.7 [facility] Comment on above: Performed By: #### L 100.0100, L500.2500 ####[facility] [address] [place], [address] Basophils/100 WBC (Bld) 0.5 % Normal 0-1 [facility] Comment on above: Performed By: #### L 100.0100, L500.2500 ####[facility] [address] [place], [address] Eosinophils/100 WBC (Bld) 2.7 % Normal 0-5 [facility] Comment on above: Performed By: #### L 100.0100, L500.2500 ####[facility] [address] [place], [id number] Erythrocyte distribution width (RBC) [Ratio] 14.6 % Normal 11.6-14.6 [facility] Comment on above: Performed By: #### L 100.0100, L500.2500 ####[facility] [address] [place], [address] Hematocrit (Bld) [Volume fraction] 25.1 % Low 37-47 [facility] Comment on above: Performed By: #### L 100.0100, L500.2500 ####[facility] [address] [place], [address] Hemoglobin (Bld) [Mass/Vol] 8.3 g/dL Low 12.0-15.0 [facility] Comment on above: Performed By: #### L 100.0100, L500.2500 ####[facility] [address] [place], [address] IG% 3.000 High 0.0-0.9 [facility] Comment on above: Result Comment: IG% - Immature Granulocytes (promyelocytes, myelocytes andmetamyelocytes) > 1% indicates that a LEFT SHIFT is Present. Performed By: #### L 100.0100, L500.2500 ####[facility] [address] [place], [address] Lymphocytes/100 WBC (Bld) 15.2 % Low 19-41 [facility] Comment on above: Performed By: #### L 100.0100, L500.2500 ####[facility] [address] [place], [address] MCH (RBC) [Entitic mass] 32.3 pg High 27.0-32.0 [facility] Comment on above: Performed By: #### L 100.0100, L500.2500 ####[facility] [address] [place], [address] MCHC (RBC) [Mass/Vol] 33.1 g/dL Normal 32-36 [facility] Comment on above: Performed By: #### L 100.0100, L500.2500 ####[facility] [address] [place], [address] MCV (RBC) [Entitic vol] 97.7 fL Normal 81-99 [facility] Comment on above: Performed By: #### L 100.0100, L500.2500 ####[facility] [address] [place], [address] Monocytes/100 WBC (Bld) 7.9 % Normal 0-10 [facility] Comment on above: Performed By: #### L 100.0100, L500.2500 ####[facility] [address] [place], [address] Neutrophils/100 WBC (Bld) 70.7 % High 47-70 [facility] Comment on above: Performed By: #### L 100.0100, L500.2500 ####[facility] [address] [place], [address] Nucleated RBC (Bld) [#/Vol] 0 10*3/uL Normal 0-5 [facility] Comment on above: Performed By: #### L 100.0100, L500.2500 ####[facility] [address] [place], [address] Platelet mean volume (Bld) [Entitic vol] 9.0 fL Normal 6.2-12.0 [facility] Comment on above: Performed By: #### L 100.0100, L500.2500 ####[facility] [address] [place], [address] Platelets (Bld) [#/Vol] 342 10*3/uL Normal 150-450 [facility] Comment on above: Performed By: #### L 100.0100, L500.2500 ####[facility] [address] [place], [address] RBC (Bld) [#/Vol] 2.57 10*6/uL Low 4.2-5.4 [facility] Comment on above: Performed By: #### L 100.0100, L500.2500 ####[facility] [address] [place], [address] RDW SD 51.1 fl High 35.1-43.9 [facility] Comment on above: Performed By: #### L 100.0100, L500.2500 ####[facility] [address] [place], [address] WBC (Bld) [#/Vol] 10.3 10*3/uL Normal 4.4-11.0 [facility] Comment on above: Performed By: #### L 100.0100, L500.2500 ####[facility] [address] [place], [address] Bedside Glucoseon 05-08-2024 FINGERSTICK GLU 184 mg/dL High -106 [facility] Comment on above: Result Comment: JASON GEMENT OF PATIENT CARE PER NURSING PROTOCOL Performed By: #### L 501.080 ####[facility] [address] [place], [address] FINGERSTICK GLU 162 mg/dL High [address] [place] [address] Comment on above: Result Comment: JASON GEMENT OF PATIENT CARE PER NURSING PROTOCOL Performed By: #### L 501.080 ####[facility] [address] [place], [address] FINGERSTICK GLU 165 mg/dL High [address] [place] [address] Comment on above: Result Comment: JASON GEMENT OF PATIENT CARE PER NURSING PROTOCOL Performed By: #### L 501.080 ####[facility] [address] [place], [address] FINGERSTICK GLU 86 mg/dL Normal -[address] [place] [address] Comment on above: Result Comment: JASON GEMENT OF PATIENT CARE PER NURSING PROTOCOL Performed By: #### L 501.080 ####[facility] [address] [place], [address] Bedside Glucoseon 05-07-2024 FINGERSTICK GLU 181 mg/dL High [address] [place] [address] Comment on above: Result Comment: JASON GEMENT OF PATIENT CARE PER NURSING PROTOCOL Performed By: #### L 501.080 ####[facility] [address] [place], [address] FINGERSTICK GLU 200 mg/dL High [address] [place] [address] Comment on above: Result Comment: JASON GEMENT OF PATIENT CARE PER NURSING PROTOCOL Performed By: #### L 501.080 ####[facility] [address] [place], [address] FINGERSTICK GLU 184 mg/dL High [address] [place] [address] Comment on above: Result Comment: JASON GEMENT OF PATIENT CARE PER NURSING PROTOCOL Performed By: #### L 501.080 ####[facility] [address] [place], [address] FINGERSTICK GLU 124 mg/dL High 74-106 [facility] Comment on above: Result Comment: JASON GEMENT OF PATIENT CARE PER NURSING PROTOCOL Performed By: #### L 501.080 ####[facility] [address] [place], [address] Bedside Glucoseon 05-06-2024 FINGERSTICK GLU 116 mg/dL High 74-106 [facility] Comment on above: Result Comment: JASON GEMENT OF PATIENT CARE PER NURSING PROTOCOL Performed By: #### L 501.080 ####[facility] [address] [place], [address] FINGERSTICK GLU 148 mg/dL High 74-106 [facility] Comment on above: Result Comment: JASON GEMENT OF PATIENT CARE PER NURSING PROTOCOL Performed By: #### L 501.080 ####[facility] [address] [place], [address] FINGERSTICK GLU 232 mg/dL High 74-106 [facility] Comment on above: Result Comment: JASON GEMENT OF PATIENT CARE PER NURSING PROTOCOL Performed By: #### L 501.080 ####[facility] [address] [place], [address] FINGERSTICK GLU 185 mg/dL High 74-106 [facility] Comment on above: Result Comment: JASON GEMENT OF PATIENT CARE PER NURSING PROTOCOL Performed By: #### L 501.080 ####[facility] [address] [place], [address] [facility] ([facility]) -------- GEORGINAVAL Gordon ([id number]) 1945 F Date Time Provider Department 05/06/24 TESSA BROCK [facility] During your visit today, we recorded the following information about you: Tessa Brock RPh 05/06/2024 2:17 PM Signed Called patient for scheduled pharmacy phone follow up; unable to reach after multiple attempts. Left with phone number to reschedule appointment. Tessa Brock, PharmD, BCACP Primary Care Clinical [employer] Allergies As of Date: 05/06/2024 Noted Allergy Reaction RYBELSUS (SEMAGLUTIDE) 07/10/2023 5 - Intolerance Comments: Uncontrollable indigestion LEVAQUIN (LEVOFLOXACIN) 12/29/2004 Comments: itching,diarrhea,dausea, burning skin SEASONAL ALLERGIES 08/19/2014 14 - Other: See Comments Comments: Sinus SULFA (SULFONAMIDE ANTIBIOTICS) 12/29/2004 Comments: rash and hives Date Reviewed: 04/08/2024 Reviewed by: Tessa Brock [facility] - Fully Assessed Reason for Visit: Missed [...] Units subcutaneously daily at bedtime. - Insulin [place], Disposable, 29 gauge x 1/2 Use once daily as directed. Dx E11.29 - venlafaxine ER (EFFEXOR XR) 75 mg 24 hr capsule Take 1 capsule by mouth once daily. - empagliflozin (JARDIANCE) 10 mg tablet Take 1 tablet by mouth once daily. Prescribed by inspector fabric - calcitriol (ROCALTROL) 0.5 mcg capsule Take [...] daily. Per Dr. Yulia Antoine, cardiology. - ybkhwstgzzr-ryjcnckhf-op lanter (TRELEGY ELLIPTA) 100-62.5-25 mcg inhalation powder Inhale 1 Puff as instructed once daily. - docusate sodium (COLACE) 100 mg capsule Take 1 capsule by mouth as needed. - melatonin 5 mg tablet Take 2 tablets by mouth. - senna (SENOKOT) 8.6 mg tab Take 1 tablet by mouth as needed. - Vit C-Vit L-Brfzrc-HiRp-Lutein (PRESERVISION LUTEIN) 226 mg-200 unit -5 mg-0.8 mg cap Take 1 capsule by mouth once daily. - COMPOUNDED PRESCRIPTION Take 1 tablet by mouth twice daily. Plexus Bio-5 (Probiotic) - blood sugar diagnostic (Paradise CornerTOUCH ULTRA TEST) test strip Test blood sugar(s) [...] type 1 (more content not included)... Normal [facility] COVID 19 AG RAPID (SY[place])on 05-06-2024 SARS-CoV-2 (COVID-19) RNA ALY+probe Ql (Unsp spec) Normal [facility] Comment on above: Performed By: #### M 100.505 ####[facility] [address] [place], [address] Urine Cultureon 05-06-2024 URC Normal [facility] Comment on above: Performed By: #### M 100.2200, L400.0001 ####[facility] [address] [place], [address] Bedside Glucoseon 05-05-2024 FINGERSTICK GLU 210 mg/dL High [address] [place] [address] Comment on above: Result Comment: JASON GEMENT OF PATIENT CARE PER NURSING PROTOCOL Performed By: #### L 501.080 ####[facility] [address] [place], [address] FINGERSTICK GLU 202 mg/dL High [address] [place] [address] Comment on above: Result Comment: JASON GEMENT OF PATIENT CARE PER NURSING PROTOCOL Performed By: #### L 501.080 ####[facility] [address] [place], [address] FINGERSTICK GLU 290 mg/dL High [address] [place] [address] Comment on above: Result Comment: JASON GEMENT OF PATIENT CARE PER NURSING PROTOCOL Performed By: #### L 501.080 ####[facility] [address] [place], [address] FINGERSTICK GLU 218 mg/dL High [address] [place] [address] Comment on above: Result Comment: JASON GEMENT OF PATIENT CARE PER NURSING PROTOCOL Performed By: #### L 501.080 ####[facility] [address] [place], [address] Femur Min 2 Viewson 05-05-19 25 Femur Min 2 Views Normal [facility] Pelvis 1 or 2 Viewson 2024 Pelvis 1 or 2 Views Normal [facility] Basic Metabolic Profile (BMP )on 05-04-2024 BUN/CRE 26.8 RATIO High 10-20 [facility] Comment on above: Performed By: #### L 500.2500 ####[facility] [address] [place], [address] CA,Total 9.1 mg/dL Normal 8.5-10.1 [facility] Comment on above: Performed By: #### L 500.2500 ####[facility] [address] [place], [address] Chloride [Moles/Vol] 96 mmol/L Low 98-107 [facility] Comment on above: Performed By: #### L 500.2500 ####[facility] [address] [place], [address] CO2 [Moles/Vol] 25.0 mmol/L Normal 21.0-32.0 [facility] Comment on above: Performed By: #### L 500.2500 ####[facility] [address] [place], [address] Creatinine [Mass/Vol] 1.94 mg/dL High 0.55-1.02 [facility] Comment on above: Result Comment: The validity of the calculated GFR GFRAA in patients over70 years has not been determined. Clinical correlation isessential. Performed By: #### L 500.2500 ####[facility] [address] [place], [address] ECRCL 28.30 ml/min Normal [facility] Comment on above: Performed By: #### L 500.2500 ####[facility] [address] [place], [address] EST GFR - AA 32 mL/min Low >60 [facility] Comment on above: Result Comment: Afri can Kuwaiti GFR Calc Performed By: #### L 500.2500 ####[facility] [address] [place], [address] GAP 7 Normal 5-15 [facility] Comment on above: Performed By: #### L 500.2500 ####[facility] [address] [place], [address] GFR/1.73 sq M.predicted among non-blacks MDRD (S/P/Bld) [Vol rate/Area] 26 mL/min/{1.73_m2} Low >60 [facility] Comment on above: Result Comment: Non- GFR Calc Performed By: #### L 500.2500 ####[facility] [address] [place], [address] Glucose [Mass/Vol] 194 mg/dL High 74-106 [facility] Comment on above: Result Comment: Fast ing Glucose result greater than or equal to 126 mg/dLsuggests DIABETES MELLITUS per A.D.A. criteria. Performed By: #### L 500.2500 ####[facility] [address] [place], [address] Potassium [Moles/Vol] 5.0 mmol/L Normal 3.5-5.1 [facility] Comment on above: Performed By: #### L 500.2500 ####[facility] [address] [place], [address] Sodium [Moles/Vol] 128 mmol/L Low 136-145 [facility] Comment on above: Performed By: #### L 500.2500 ####[facility] [address] [place], [address] Urea nitrogen [Mass/Vol] 52 mg/dL High 7-18 [facility] Comment on above: Performed By: #### L 500.2500 ####[facility] [address] [place], [address] Bedside Glucoseon 05-04-2024 FINGERSTICK GLU 291 mg/dL High 74-106 [facility] Comment on above: Result Comment: JASON RODRIGEUZ OF PATIENT CARE PER NURSING PROTOCOL Performed By: #### L 501.080 ####[facility] [address] [place], [address] FINGERSTICK GLU 232 mg/dL High 74-106 [facility] Comment on above: Result Comment: JASON GEMENT OF PATIENT CARE PER NURSING PROTOCOL Performed By: #### L 501.080 ####[facility] [address] [place], [address] FINGERSTICK GLU 258 mg/dL High 74-106 [facility] Comment on above: Result Comment: JASON GEMENT OF PATIENT CARE PER NURSING PROTOCOL Performed By: #### L 501.080 ####[facility] [address] [place], [address] FINGERSTICK GLU 258 mg/dL High 74-106 [facility] Comment on above: Result Comment: JASON GEMENT OF PATIENT CARE PER NURSING PROTOCOL Performed By: #### L 501.080 ####[facility] [address] [place], [address] FINGERSTICK GLU 197 mg/dL High 74-106 [facility] Comment on above: Result Comment: JASON GEMENT OF PATIENT CARE PER NURSING PROTOCOL Performed By: #### L 501.080 ####[facility] [address] [place], [address] Urinalysis, Completeon 05-04 BACTERIA 1+ /hpf Normal None Seen [facility] Comment on above: Order Comment: COLLE CTOR TO SPECIFY Performed By: #### M 100.2200, L400.0001 ####[facility] [address] [place], [address] RBC 0-5 SEEN Normal 0-5 [facility] Comment on above: Order Comment: COLLE CTOR TO SPECIFY Performed By: #### M 100.2200, L400.0001 ####[facility] [address] [place], [address] EPI,SQUAMOUS 0-5 SEEN Normal 5-10 [facility] Comment on above: Order Comment: COLLE CTOR TO SPECIFY Performed By: #### M 100.2200, L400.0001 ####[facility] [address] [place], [address] Mucus Ql (Urine sed) 0 SEEN Normal [facility] Comment on above: Order Comment: COLLE CTOR TO SPECIFY Performed By: #### M 100.2200, L400.0001 ####[facility] [address] [place], [address] WBC 0 SEEN Normal 0-5 [facility] Comment on above: Order Comment: COLLE CTOR TO SPECIFY Performed By: #### M 100.2200, L400.0001 ####[facility] [address] [place], [address] Basic Metabolic Profile (BMP )on 05-03-2024 BUN/CRE 23.6 RATIO High 10-20 [facility] Comment on above: Performed By: #### L 100.0100, L500.2500 ####[facility] [address] [place], [address] CA,Total 9.5 mg/dL Normal 8.5-10.1 [facility] Comment on above: Performed By: #### L 100.0100, L500.2500 ####[facility] [address] [place], [address] Chloride [Moles/Vol] 97 mmol/L Low 98-107 [facility] Comment on above: Performed By: #### L 100.0100, L500.2500 ####[facility] [address] [place], [address] CO2 [Moles/Vol] 25.0 mmol/L Normal 21.0-32.0 [facility] Comment on above: Performed By: #### L 100.0100, L500.2500 ####[facility] [address] [place], [address] Creatinine [Mass/Vol] 1.99 mg/dL High 0.55-1.02 [facility] Comment on above: Result Comment: The validity of the calculated GFR GFRAA in patients over70 years has not been determined. Clinical correlation isessential. Performed By: #### L 100.0100, L500.2500 ####[facility] [address] [place], [address] ECRCL 27.59 ml/min Normal [facility] Comment on above: Performed By: #### L 100.0100, L500.2500 ####[facility] [address] [place], [address] EST GFR - AA 31 mL/min Low >60 [facility] Comment on above: Result Comment: Afri can [place]i GFR Calc Performed By: #### L 100.0100, L500.2500 ####[facility] [address] [place], [address] GAP 9 Normal 5-15 [facility] Comment on above: Performed By: #### L 100.0100, L500.2500 ####[facility] [address] [place], [address] GFR/1.73 sq M.predicted among non-blacks MDRD (S/P/Bld) [Vol rate/Area] 26 mL/min/{1.73_m2} Low >60 [facility] Comment on above: Result Comment: Non- GFR Calc Performed By: #### L 100.0100, L500.2500 ####[facility] [address] [place], [address] Glucose [Mass/Vol] 206 mg/dL High 74-106 [facility] Comment on above: Result Comment: Gluc ose result greater than or equal to 200 mg/dLsuggests DIABETES MELLITUS per A.D.A. criteria. Performed By: #### L 100.0100, L500.2500 ####[facility] [address] [place], [address] Potassium [Moles/Vol] 4.9 mmol/L Normal 3.5-5.1 [facility] Comment on above: Performed By: #### L 100.0100, L500.2500 ####[facility] [address] [place], [address] Sodium [Moles/Vol] 131 mmol/L Low 136-145 [facility] Comment on above: Performed By: #### L 100.0100, L500.2500 ####[facility] [address] [place], [address] Urea nitrogen [Mass/Vol] 47 mg/dL High 7-18 [facility] Comment on above: Performed By: #### L 100.0100, L500.2500 ####[facility] [address] [place], [address] Bedside Glucoseon 05-03-2024 FINGERSTICK GLU 274 mg/dL High 74-106 [facility] Comment on above: Result Comment: JASON GEMENT OF PATIENT CARE PER NURSING PROTOCOL Performed By: #### L 501.080 ####[facility] [address] [place], [address] FINGERSTICK GLU 281 mg/dL High 74-106 [facility] Comment on above: Result Comment: JASON GEMENT OF PATIENT CARE PER NURSING PROTOCOL Performed By: #### L 501.080 ####[facility] [address] [place], [address] FINGERSTICK GLU 277 mg/dL High 74-106 [facility] Comment on above: Result Comment: JASON GEMENT OF PATIENT CARE PER NURSING PROTOCOL Performed By: #### L 501.080 ####[facility] [address] [place], [address] FINGERSTICK GLU 167 mg/dL High 74-106 [facility] Comment on above: Result Comment: JASON GEMENT OF PATIENT CARE PER NURSING PROTOCOL Performed By: #### L 501.080 ####[facility] [address] [place], [address] CBC W/Diff, Automatedon - Absolute Lymph 1.71 X10 3/uL Normal 0.83-4.51 [facility] Comment on above: Performed By: #### L 100.0100, L500.2500 ####[facility] [address] [place], [address] Absolute Neut 9.5 X10 3/uL High 2.0-7.7 [facility] Comment on above: Performed By: #### L 100.0100, L500.2500 ####[facility] [address] [place], [address] Basophils/100 WBC (Bld) 0.5 % Normal 0-1 [facility] Comment on above: Performed By: #### L 100.0100, L500.2500 ####[facility] [address] [place], [address] Eosinophils/100 WBC (Bld) 1.6 % Normal 0-5 [facility] Comment on above: Performed By: #### L 100.0100, L500.2500 ####[facility] [address] [place], [address] Erythrocyte distribution width (RBC) [Ratio] 14.1 % Normal 11.6-14.6 [facility] Comment on above: Performed By: #### L 100.0100, L500.2500 ####[facility] [address] [place], [address] Hematocrit (Bld) [Volume fraction] 26.6 % Low 37-47 [facility] Comment on above: Performed By: #### L 100.0100, L500.2500 ####[facility] [address] [place], [address] Hemoglobin (Bld) [Mass/Vol] 8.6 g/dL Low 12.0-15.0 [facility] Comment on above: Performed By: #### L 100.0100, L500.2500 ####[facility] [address] [place], [address] IG% 1.700 High 0.0-0.9 [facility] Comment on above: Result Comment: IG% - Immature Granulocytes (promyelocytes, myelocytes andmetamyelocytes) > 1% indicates that a LEFT SHIFT is Present. Performed By: #### L 100.0100, L500.2500 ####[facility] [address] [place], [address] Lymphocytes/100 WBC (Bld) 13.3 % Low 19-41 [facility] Comment on above: Performed By: #### L 100.0100, L500.2500 ####[facility] [address] [place], [address] MCH (RBC) [Entitic mass] 31.9 pg Normal 27.0-32.0 [facility] Comment on above: Performed By: #### L 100.0100, L500.2500 ####[facility] [address] [place], [address] MCHC (RBC) [Mass/Vol] 32.3 g/dL Normal 32-36 [facility] Comment on above: Performed By: #### L 100.0100, L500.2500 ####[facility] [address] [place], [address] MCV (RBC) [Entitic vol] 98.5 fL Normal 81-99 [facility] Comment on above: Performed By: #### L 100.0100, L500.2500 ####[facility] [address] [place], [address] Monocytes/100 WBC (Bld) 8.7 % Normal 0-10 [facility] Comment on above: Performed By: #### L 100.0100, L500.2500 ####[facility] [address] [place], [address] Neutrophils/100 WBC (Bld) 74.2 % High 47-70 [facility] Comment on above: Performed By: #### L 100.0100, L500.2500 ####[facility] [address] [place], [address] Nucleated RBC (Bld) [#/Vol] 0 10*3/uL Normal 0-5 [facility] Comment on above: Performed By: #### L 100.0100, L500.2500 ####[facility] [address] [place], [address] Platelet mean volume (Bld) [Entitic vol] 9.5 fL Normal 6.2-12.0 [facility] Comment on above: Performed By: #### L 100.0100, L500.2500 ####[facility] [address] [place], [address] Platelets (Bld) [#/Vol] 257 10*3/uL Normal 150-450 [facility] Comment on above: Performed By: #### L 100.0100, L500.2500 ####[facility] [address] [place], [address] RBC (Bld) [#/Vol] 2.70 10*6/uL Low 4.2-5.4 [facility] Comment on above: Performed By: #### L 100.0100, L500.2500 ####[facility] [address] [place], [address] RDW SD 49.9 fl High 35.1-43.9 [facility] Comment on above: Performed By: #### L 100.0100, L500.2500 ####[facility] [address] [place], [address] WBC (Bld) [#/Vol] 12.8 10*3/uL High 4.4-11.0 [facility] Comment on above: Performed By: #### L 100.0100, L500.2500 ####[facility] [address] [place], [address] Basic Metabolic Profile (BMP )on 05-02-2024 BUN/CRE 24.4 RATIO High 10-20 [facility] Comment on above: Performed By: #### L 100.0100, L500.2500 ####[facility] [address] [place], [address] CA,Total 9.6 mg/dL Normal 8.5-10.1 [facility] Comment on above: Performed By: #### L 100.0100, L500.2500 ####[facility] [address] [place], [address] Chloride [Moles/Vol] 99 mmol/L Normal 98-107 [facility] Comment on above: Performed By: #### L 100.0100, L500.2500 ####[facility] [address] [place], [address] CO2 [Moles/Vol] 25.0 mmol/L Normal 21.0-32.0 [facility] Comment on above: Performed By: #### L 100.0100, L500.2500 ####[facility] [address] [place], [address] Creatinine [Mass/Vol] 2.05 mg/dL High 0.55-1.02 [facility] Comment on above: Result Comment: The validity of the calculated GFR GFRAA in patients over70 years has not been determined. Clinical correlation isessential. Performed By: #### L 100.0100, L500.2500 ####[facility] [address] [place], [address] ECRCL 27.37 ml/min Normal [facility] Comment on above: Performed By: #### L 100.0100, L500.2500 ####[facility] [address] [place], [address] EST GFR - AA 30 mL/min Low >60 [facility] Comment on above: Result Comment: Afri can [place]i GFR Calc Performed By: #### L 100.0100, L500.2500 ####[facility] [address] [place], [address] GAP 7 Normal 5-15 [facility] Comment on above: Performed By: #### L 100.0100, L500.2500 ####[facility] [address] [place], [address] GFR/1.73 sq M.predicted among non-blacks MDRD (S/P/Bld) [Vol rate/Area] 25 mL/min/{1.73_m2} Low >60 [facility] Comment on above: Result Comment: Non- GFR Calc Performed By: #### L 100.0100, L500.2500 ####[facility] [address] [place], [address] Glucose [Mass/Vol] 255 mg/dL High 74-106 [facility] Comment on above: Result Comment: Gluc ose result greater than or equal to 200 mg/dLsuggests DIABETES MELLITUS per A.D.A. criteria. Performed By: #### L 100.0100, L500.2500 ####[facility] [address] [place], [address] Potassium [Moles/Vol] 4.9 mmol/L Normal 3.5-5.1 [facility] Comment on above: Performed By: #### L 100.0100, L500.2500 ####[facility] [address] [place], [address] Sodium [Moles/Vol] 132 mmol/L Low 136-145 [facility] Comment on above: Performed By: #### L 100.0100, L500.2500 ####[facility] [address] [place], [address] Urea nitrogen [Mass/Vol] 50 mg/dL High 7-18 [facility] Comment on above: Performed By: #### L 100.0100, L500.2500 ####[facility] [address] [place], [address] Bedside Glucoseon 05-02-2024 FINGERSTICK GLU 150 mg/dL High 74-106 [facility] Comment on above: Result Comment: JASON GEMENT OF PATIENT CARE PER NURSING PROTOCOL Performed By: #### L 501.080 ####[facility] [address] [place], [address] FINGERSTICK GLU 150 mg/dL High 74-106 [facility] Comment on above: Result Comment: JASON GEMENT OF PATIENT CARE PER NURSING PROTOCOL Performed By: #### L 501.080 ####[facility] [address] [place], [address] FINGERSTICK GLU 176 mg/dL High 74-106 [facility] Comment on above: Result Comment: JASON GEMENT OF PATIENT CARE PER NURSING PROTOCOL Performed By: #### L 501.080 ####[facility] [address] [place], [address] FINGERSTICK GLU 212 mg/dL High 74-106 [facility] Comment on above: Result Comment: JASON GEMENT OF PATIENT CARE PER NURSING PROTOCOL Performed By: #### L 501.080 ####[facility] [address] [place], [address] CBC W/Diff, Automatedon 02- Absolute Lymph 1.50 X10 3/uL Normal 0.83-4.51 [facility] Comment on above: Performed By: #### L 100.0100, L500.2500 ####[facility] [address] [place], [address] Absolute Neut 8.3 X10 3/uL High 2.0-7.7 [facility] Comment on above: Performed By: #### L 100.0100, L500.2500 ####[facility] [address] [place], [address] Basophils/100 WBC (Bld) 0.4 % Normal 0-1 [facility] Comment on above: Performed By: #### L 100.0100, L500.2500 ####[facility] [address] [place], [address] Eosinophils/100 WBC (Bld) 1.6 % Normal 0-5 [facility] Comment on above: Performed By: #### L 100.0100, L500.2500 ####[facility] [address], [address] Erythrocyte distribution width (RBC) [Ratio] 13.8 % Normal 11.6-14.6 [facility] Comment on above: Performed By: #### L 100.0100, L500.2500 ####[facility] [address] [place], [address] Hematocrit (Bld) [Volume fraction] 25.2 % Low 37-47 [facility] Comment on above: Performed By: #### L 100.0100, L500.2500 ####[facility] [address] [place], [address] Hemoglobin (Bld) [Mass/Vol] 8.1 g/dL Low 12.0-15.0 [facility] Comment on above: Performed By: #### L 100.0100, L500.2500 ####[facility] [address] [place], [address] IG% 1.300 High 0.0-0.9 [facility] Comment on above: Result Comment: IG% - Immature Granulocytes (promyelocytes, myelocytes andmetamyelocytes) > 1% indicates that a LEFT SHIFT is Present. Performed By: #### L 100.0100, L500.2500 ####[facility] [address] [place], [address] Lymphocytes/100 WBC (Bld) 13.4 % Low 19-41 [facility] Comment on above: Performed By: #### L 100.0100, L500.2500 ####[facility] [address] [place], [address] MCH (RBC) [Entitic mass] 31.6 pg Normal 27.0-32.0 [facility] Comment on above: Performed By: #### L 100.0100, L500.2500 ####[facility] [address] [place], [address] MCHC (RBC) [Mass/Vol] 32.1 g/dL Normal 32-36 [facility] Comment on above: Performed By: #### L 100.0100, L500.2500 ####[facility] [address] [place], [address] MCV (RBC) [Entitic vol] 98.4 fL Normal 81-99 [facility] Comment on above: Performed By: #### L 100.0100, L500.2500 ####[facility] [address] [place], [address] Monocytes/100 WBC (Bld) 8.5 % Normal 0-10 [facility] Comment on above: Performed By: #### L 100.0100, L500.2500 ####[facility] [address] [place], [address] Neutrophils/100 WBC (Bld) 74.8 % High 47-70 [facility] Comment on above: Performed By: #### L 100.0100, L500.2500 ####[facility] [address] [place], [address] Nucleated RBC (Bld) [#/Vol] 0.2 10*3/uL Normal 0-5 [facility] Comment on above: Performed By: #### L 100.0100, L500.2500 ####[facility] [address] [place], [address] Platelet mean volume (Bld) [Entitic vol] 9.5 fL Normal 6.2-12.0 [facility] Comment on above: Performed By: #### L 100.0100, L500.2500 ####[facility] [address] [place], [address] Platelets (Bld) [#/Vol] 207 10*3/uL Normal 150-450 [facility] Comment on above: Performed By: #### L 100.0100, L500.2500 ####[facility] [address] [place], [address] RBC (Bld) [#/Vol] 2.56 10*6/uL Low 4.2-5.4 [facility] Comment on above: Performed By: #### L 100.0100, L500.2500 ####[facility] [address] [place], [address] RDW SD 49.6 fl High 35.1-43.9 [facility] Comment on above: Performed By: #### L 100.0100, L500.2500 ####[facility] [address] [place], [address] WBC (Bld) [#/Vol] 11.2 10*3/uL High 4.4-11.0 [facility] Comment on above: Performed By: #### L 100.0100, L500.2500 ####[facility] [address] [place], [address] Basic Metabolic Profile (BMP )on 02-14-2025 BUN/CRE 19.9 RATIO Normal 10-20 [facility] Comment on above: Performed By: #### L 100.0100, L500.2500 ####[facility] [address] [place], [address] CA,Total 9.8 mg/dL Normal 8.5-10.1 [facility] Comment on above: Performed By: #### L 100.0100, L500.2500 ####[facility] [address] [place], [address] Chloride [Moles/Vol] 95 mmol/L Low 98-107 [facility] Comment on above: Performed By: #### L 100.0100, L500.2500 ####[facility] [address] [place], [address] CO2 [Moles/Vol] 25.0 mmol/L Normal 21.0-32.0 [facility] Comment on above: Performed By: #### L 100.0100, L500.2500 ####[facility] [address] [place], [address] Creatinine [Mass/Vol] 2.41 mg/dL High 0.55-1.02 [facility] Comment on above: Result Comment: The validity of the calculated GFR GFRAA in patients over70 years has not been determined. Clinical correlation isessential. Performed By: #### L 100.0100, L500.2500 ####[facility] [address] [place], [address] ECRCL 23.28 ml/min Normal [facility] Comment on above: Performed By: #### L 100.0100, L500.2500 ####[facility] [address] [place], [address] EST GFR - AA 25 mL/min Low >60 [facility] Comment on above: Result Comment: Afri can [place]i GFR Calc Performed By: #### L 100.0100, L500.2500 ####[facility] [address] [place], [address] GAP 8 Normal 5-15 [facility] Comment on above: Performed By: #### L 100.0100, L500.2500 ####[facility] [address] [place], [address] GFR/1.73 sq M.predicted among non-blacks MDRD (S/P/Bld) [Vol rate/Area] 21 mL/min/{1.73_m2} Low >60 [facility] Comment on above: Result Comment: Non- GFR Calc Performed By: #### L 100.0100, L500.2500 ####[facility] [address] [place], [address] Glucose [Mass/Vol] 266 mg/dL High 74-106 [facility] Comment on above: Result Comment: Gluc ose result greater than or equal to 200 mg/dLsuggests DIABETES MELLITUS per A.D.A. criteria. Performed By: #### L 100.0100, L500.2500 ####[facility] [address] [place], [address] Potassium [Moles/Vol] 5.3 mmol/L High 3.5-5.1 [facility] Comment on above: Performed By: #### L 100.0100, L500.2500 ####[facility] [address] [place], [address] Sodium [Moles/Vol] 128 mmol/L Low 136-145 [facility] Comment on above: Performed By: #### L 100.0100, L500.2500 ####[facility] [address] [place], [address] Urea nitrogen [Mass/Vol] 48 mg/dL High 7-18 [facility] Comment on above: Performed By: #### L 100.0100, L500.2500 ####[facility] [address] [place], [address] Bedside Glucoseon 05-01-2024 FINGERSTICK GLU 178 mg/dL High [address] [place] [address] Comment on above: Result Comment: JASON GEMENT OF PATIENT CARE PER NURSING PROTOCOL Performed By: #### L 501.080 ####[facility] [address] [place], [address] FINGERSTICK GLU 325 mg/dL High [address] [place] [address] Comment on above: Result Comment: JASON GEMENT OF PATIENT CARE PER NURSING PROTOCOL Performed By: #### L 501.080 ####[facility] [address] [place], [address] FINGERSTICK GLU 375 mg/dL High [address] [place] [address] Comment on above: Result Comment: JASON GEMENT OF PATIENT CARE PER NURSING PROTOCOL Performed By: #### L 501.080 ####[facility] [address] [place], [address] FINGERSTICK GLU 274 mg/dL High [address] [place] [address] Comment on above: Result Comment: JASON GEMENT OF PATIENT CARE PER NURSING PROTOCOL Performed By: #### L 501.080 ####[facility] [address] [place], [address] CBC W/Diff, Automatedon 04-18 Absolute Lymph 1.17 X10 3/uL Normal 0.83-4.51 [facility] Comment on above: Performed By: #### L 100.0100, L500.2500 ####[facility] [address] [place], [address] Absolute Neut 10.2 X10 3/uL High 2.0-7.7 [facility] Comment on above: Performed By: #### L 100.0100, L500.2500 ####[facility] [address] [place], [address] Basophils/100 WBC (Bld) 0.2 % Normal 0-1 [facility] Comment on above: Performed By: #### L 100.0100, L500.2500 ####[facility] [address] [place], [address] Eosinophils/100 WBC (Bld) 1.3 % Normal 0-5 [facility] Comment on above: Performed By: #### L 100.0100, L500.2500 ####[facility] [address] [place], [address] Erythrocyte distribution width (RBC) [Ratio] 13.9 % Normal 11.6-14.6 [facility] Comment on above: Performed By: #### L 100.0100, L500.2500 ####[facility] [address] [place], [address] Hematocrit (Bld) [Volume fraction] 27.6 % Low 37-47 [facility] Comment on above: Performed By: #### L 100.0100, L500.2500 ####[facility] [address] [place], [address] Hemoglobin (Bld) [Mass/Vol] 8.8 g/dL Low 12.0-15.0 [facility] Comment on above: Performed By: #### L 100.0100, L500.2500 ####[facility] [address] [place], [address] IG% 0.900 Normal 0.0-0.9 [facility] Comment on above: Result Comment: IG% - Immature Granulocytes (promyelocytes, myelocytes andmetamyelocytes) > 1% indicates that a LEFT SHIFT is Present. Performed By: #### L 100.0100, L500.2500 ####[facility] [address] [place], [address] Lymphocytes/100 WBC (Bld) 9.3 % Low 19-41 [facility] Comment on above: Performed By: #### L 100.0100, L500.2500 ####[facility] [address] [place], [address] MCH (RBC) [Entitic mass] 31.5 pg Normal 27.0-32.0 [facility] Comment on above: Performed By: #### L 100.0100, L500.2500 ####[facility] [address] [place], [address] MCHC (RBC) [Mass/Vol] 31.9 g/dL Low 32-36 [facility] Comment on above: Performed By: #### L 100.0100, L500.2500 ####[facility] [address] [place], [address] MCV (RBC) [Entitic vol] 98.9 fL Normal 81-99 [facility] Comment on above: Performed By: #### L 100.0100, L500.2500 ####[facility] [address] [place] [place], [address] Monocytes/100 WBC (Bld) 6.8 % Normal 0-10 [facility] Comment on above: Performed By: #### L 100.0100, L500.2500 ####[facility] [address] [place], [address] Neutrophils/100 WBC (Bld) 81.5 % High 47-70 [facility] Comment on above: Performed By: #### L 100.0100, L500.2500 ####[facility] [address] [place], [address] Nucleated RBC (Bld) [#/Vol] 0 10*3/uL Normal 0-5 [facility] Comment on above: Performed By: #### L 100.0100, L500.2500 ####[facility] [address] [place], [address] Platelet mean volume (Bld) [Entitic vol] 9.7 fL Normal 6.2-12.0 [facility] Comment on above: Performed By: #### L 100.0100, L500.2500 ####[facility] [address] [place], [address] Platelets (Bld) [#/Vol] 211 10*3/uL Normal 150-450 [facility] Comment on above: Performed By: #### L 100.0100, L500.2500 ####[facility] [address] [place], [address] RBC (Bld) [#/Vol] 2.79 10*6/uL Low 4.2-5.4 [facility] Comment on above: Performed By: #### L 100.0100, L500.2500 ####[facility] [address] [place], [address] RDW SD 50.8 fl High 35.1-43.9 [facility] Comment on above: Performed By: #### L 100.0100, L500.2500 ####[facility] [address] [place], [address] WBC (Bld) [#/Vol] 12.5 10*3/uL High 4.4-11.0 [facility] Comment on above: Performed By: #### L 100.0100, L500.2500 ####[facility] [address] [place], [address] Basic Metabolic Profile (BMP )on 04-30-2024 BUN/CRE 20.8 RATIO High 10-20 [facility] Comment on above: Performed By: #### L 100.0100, L500.2500 ####[facility] [address] [place], [address] CA,Total 10.1 mg/dL Normal 8.5-10.1 [facility] Comment on above: Performed By: #### L 100.0100, L500.2500 ####[facility] [address] [place], [address] Chloride [Moles/Vol] 97 mmol/L Low 98-107 [facility] Comment on above: Performed By: #### L 100.0100, L500.2500 ####[facility] [address] [place], [address] CO2 [Moles/Vol] 25.0 mmol/L Normal 21.0-32.0 [facility] Comment on above: Performed By: #### L 100.0100, L500.2500 ####[facility] [address] [place], [address] Creatinine [Mass/Vol] 2.36 mg/dL High 0.55-1.02 [facility] Comment on above: Result Comment: The validity of the calculated GFR GFRAA in patients over70 years has not been determined. Clinical correlation isessential. Performed By: #### L 100.0100, L500.2500 ####[facility] [address] [place], [address] ECRCL 23.77 ml/min Normal [facility] Comment on above: Performed By: #### L 100.0100, L500.2500 ####[facility] [address] [place], [address] EST GFR - AA 26 mL/min Low >60 [facility] Comment on above: Result Comment: Afri can [place]i GFR Calc Performed By: #### L 100.0100, L500.2500 ####[facility] [address] [place], [address] GAP 7 Normal 5-15 [facility] Comment on above: Performed By: #### L 100.0100, L500.2500 ####[facility] [address] [place], [address] GFR/1.73 sq M.predicted among non-blacks MDRD (S/P/Bld) [Vol rate/Area] 21 mL/min/{1.73_m2} Low >60 [facility] Comment on above: Result Comment: Non- GFR Calc Performed By: #### L 100.0100, L500.2500 ####[facility] [address] [place], [address] Glucose [Mass/Vol] 202 mg/dL High 74-106 [facility] Comment on above: Result Comment: Gluc ose result greater than or equal to 200 mg/dLsuggests DIABETES MELLITUS per A.D.A. criteria. Performed By: #### L 100.0100, L500.2500 ####[facility] [address] [place], [address] Potassium [Moles/Vol] 5.1 mmol/L Normal 3.5-5.1 [facility] Comment on above: Performed By: #### L 100.0100, L500.2500 ####[facility] [address] [place], [address] Sodium [Moles/Vol] 130 mmol/L Low 136-145 [facility] Comment on above: Performed By: #### L 100.0100, L500.2500 ####[facility] [address] [place], [address] Urea nitrogen [Mass/Vol] 49 mg/dL High 7-18 [facility] Comment on above: Performed By: #### L 100.0100, L500.2500 ####[facility] [address] [place], [address] Bedside Glucoseon 04-30-2024 FINGERSTICK GLU 289 mg/dL High 74-106 [facility] Comment on above: Result Comment: JASON RODRIGUEZ OF PATIENT CARE PER NURSING PROTOCOL Performed By: #### L 501.080 ####[facility] [address] [place], [address] FINGERSTICK GLU 284 mg/dL High 74-106 [facility] Comment on above: Result Comment: JASON GEMENT OF PATIENT CARE PER NURSING PROTOCOL Performed By: #### L 501.080 ####[facility] [address] [place], [address] FINGERSTICK GLU 271 mg/dL High 74-106 [facility] Comment on above: Result Comment: JASON GEMENT OF PATIENT CARE PER NURSING PROTOCOL Performed By: #### L 501.080 ####[facility] [address] [place], [address] FINGERSTICK GLU 207 mg/dL High -106 [facility] Comment on above: Result Comment: JASON GEMENT OF PATIENT CARE PER NURSING PROTOCOL Performed By: #### L 501.080 ####[facility] [address] [place], [address] FINGERSTICK GLU 217 mg/dL High [address] [place] [address] Comment on above: Result Comment: JASON GEMENT OF PATIENT CARE PER NURSING PROTOCOL Performed By: #### L 501.080 ####[facility] [address] [place], [address] CBC W/Diff, Automatedon 02- Absolute Lymph 1.54 X10 3/uL Normal 0.83-4.51 [facility] Comment on above: Order Comment: REDRA W. PREVIOUS SPECIMEN REJECTED DUE TOQNS. 04/30/2424 Cony Roberts. Performed By: #### L 100.0100 ####[facility] [address] [place], [address] Absolute Neut 7.7 X10 3/uL Normal 2.0-7.7 [facility] Comment on above: Order Comment: REDRA W. PREVIOUS SPECIMEN REJECTED DUE TOQNS. 04/30/2424 Cony Roberts. Performed By: #### L 100.0100 ####[facility] [address] [place], [address] Basophils/100 WBC (Bld) 0.4 % Normal 0-1 [facility] Comment on above: Order Comment: REDRA W. PREVIOUS SPECIMEN REJECTED DUE TOQNS. 04/30/24723 Cony Roberts. Performed By: #### L 100.0100 ####[facility] [address] [place], [address] Eosinophils/100 WBC (Bld) 0.5 % Normal 0-5 [facility] Comment on above: Order Comment: REDRA W. PREVIOUS SPECIMEN REJECTED DUE TOQNS. 04/30/24723 Cony Roberts. Performed By: #### L 100.0100 ####[facility] [address] [place], [address] Erythrocyte distribution width (RBC) [Ratio] 13.9 % Normal 11.6-14.6 [facility] Comment on above: Order Comment: REDRA W. PREVIOUS SPECIMEN REJECTED DUE TOQNS. 04/30/24723 Cony Roberts. Performed By: #### L 100.0100 ####[facility] [address] [place], [address] Hematocrit (Bld) [Volume fraction] 27.2 % Low 37-47 [facility] Comment on above: Order Comment: REDRA W. PREVIOUS SPECIMEN REJECTED DUE TOQNS. 04/30/24723 Cony Roberts. Performed By: #### L 100.0100 ####[facility] [address] [place], [address] Hemoglobin (Bld) [Mass/Vol] 9.0 g/dL Low 12.0-15.0 [facility] Comment on above: Order Comment: REDRA W. PREVIOUS SPECIMEN REJECTED DUE TOQNS. 04/30/24723 Cony Roberts. Performed By: #### L 100.0100 ####[facility] [address] [place], [address] IG% 0.600 Normal 0.0-0.9 [facility] Comment on above: Order Comment: REDRA W. PREVIOUS SPECIMEN REJECTED DUE TOQNS. 04/30/24723 Cony Roberts. Result Comment: IG% - Immature Granulocytes (promyelocytes, myelocytes andmetamyelocytes) > 1% indicates that a LEFT SHIFT is Present. Performed By: #### L 100.0100 ####[facility] [address] [place], [address] Lymphocytes/100 WBC (Bld) 14.7 % Low 19-41 [facility] Comment on above: Order Comment: REDRA W. PREVIOUS SPECIMEN REJECTED DUE TOQNS. 04/30/24723 Cony Roberts. Performed By: #### L 100.0100 ####[facility] [address] [place], [address] MCH (RBC) [Entitic mass] 32.1 pg High 27.0-32.0 [facility] Comment on above: Order Comment: REDRA W. PREVIOUS SPECIMEN REJECTED DUE TOQNS. 04/30/24723 Cony Roberts. Performed By: #### L 100.0100 ####[facility] [address] [place], [address] MCHC (RBC) [Mass/Vol] 33.1 g/dL Normal 32-36 [facility] Comment on above: Order Comment: REDRA W. PREVIOUS SPECIMEN REJECTED DUE TOQNS. 04/30/24723 Cony Roberts. Performed By: #### L 100.0100 ####[facility] [address] [place], [address] MCV (RBC) [Entitic vol] 97.1 fL Normal 81-99 [facility] Comment on above: Order Comment: REDRA W. PREVIOUS SPECIMEN REJECTED DUE TOQNS. 04/30/24723 Cony Roberts. Performed By: #### L 100.0100 ####[facility] [address] [place], [address] Monocytes/100 WBC (Bld) 10.2 % High 0-10 [facility] Comment on above: Order Comment: REDRA W. PREVIOUS SPECIMEN REJECTED DUE TOQNS. 04/30/24723 Cony Roberts. Performed By: #### L 100.0100 ####[facility] [address] [place], [address] Neutrophils/100 WBC (Bld) 73.6 % High 47-70 [facility] Comment on above: Order Comment: REDRA W. PREVIOUS SPECIMEN REJECTED DUE TOQNS. 04/30/24723 Cony Roberts. Performed By: #### L 100.0100 ####[facility] [address] [place], [address] Nucleated RBC (Bld) [#/Vol] 0 10*3/uL Normal 0-5 [facility] Comment on above: Order Comment: REDRA W. PREVIOUS SPECIMEN REJECTED DUE TOQNS. 04/30/24723 Cony Roberts. Performed By: #### L 100.0100 ####[facility] [address] [place], [address] Platelet mean volume (Bld) [Entitic vol] 9.7 fL Normal 6.2-12.0 [facility] Comment on above: Order Comment: REDRA W. PREVIOUS SPECIMEN REJECTED DUE TOQNS. 04/30/24723 Cony Roberts. Performed By: #### L 100.0100 ####[facility] [address] [place], [address] Platelets (Bld) [#/Vol] 190 10*3/uL Normal 150-450 [facility] Comment on above: Order Comment: REDRA W. PREVIOUS SPECIMEN REJECTED DUE TOQNS. 04/30/24723 Cony Roberts. Performed By: #### L 100.0100 ####[facility] [address] [place], [address] RBC (Bld) [#/Vol] 2.80 10*6/uL Low 4.2-5.4 [facility] Comment on above: Order Comment: REDRA W. PREVIOUS SPECIMEN REJECTED DUE TOQNS. 04/30/24723 Cony Roberts. Performed By: #### L 100.0100 ####[facility] [address] [place], [address] RDW SD 49.7 fl High 35.1-43.9 [facility] Comment on above: Order Comment: REDRA W. PREVIOUS SPECIMEN REJECTED DUE TOQNS. 04/30/24723 Cony Roberts. Performed By: #### L 100.0100 ####[facility] [address] [place], [address] WBC (Bld) [#/Vol] 10.5 10*3/uL Normal 4.4-11.0 [facility] Comment on above: Order Comment: REDRA W. PREVIOUS SPECIMEN REJECTED DUE TOQNS. 04/30/24723 Cony Roberts. Performed By: #### L 100.0100 ####[facility] [address] [place], [address] Absolute Neut Normal 2.0-7.7 [facility] Comment on above: Result Comment: This specimen has been REJECTED due to Laboratory criteria:Quanity Not Sufficient.SRAVANI has been notified of need of recollection.04/30/24722 Cony Roberts Performed By: #### L 100.0100, L500.2500 ####[facility] [address] [facility] [address] HCT Normal 37-47 [facility] Comment on above: Result Comment: This specimen has been REJECTED due to Laboratory criteria:Quanity Not Sufficient.SRAVANI has been notified of need of recollection.04/30/24722 Cony Roberts Performed By: #### L 100.0100, L500.2500 ####[facility] [address] [place], [address] HGB Normal 12.0-15.0 [facility] Comment on above: Result Comment: This specimen has been REJECTED due to Laboratory criteria:Quanity Not Sufficient.SRAVANI has been notified of need of recollection.04/30/24722 Cony Roberts Performed By: #### L 100.0100, L500.2500 ####[facility] [address] [place], [address] MCH Normal 27.0-32.0 [facility] Comment on above: Result Comment: This specimen has been REJECTED due to Laboratory criteria:Quanity Not Sufficient.SRAVANI has been notified of need of recollection.04/30/24722 Cony Roberts Performed By: #### L 100.0100, L500.2500 ####[facility] [address] [place], [address] MCHC Normal 32-36 [facility] Comment on above: Result Comment: This specimen has been REJECTED due to Laboratory criteria:Quanity Not Sufficient.SRAVANI has been notified of need of recollection.04/30/24722 Cony Roberts Performed By: #### L 100.0100, L500.2500 ####[facility] [address] [place], [address] MCV Normal 81-99 [facility] Comment on above: Result Comment: This specimen has been REJECTED due to Laboratory criteria:Quanity Not Sufficient.SRAVANI has been notified of need of recollection.04/30/24722 Cony Roberts Performed By: #### L 100.0100, L500.2500 ####[facility] [address] [place], [address] NEUT% Normal 47-70 [facility] Comment on above: Result Comment: This specimen has been REJECTED due to Laboratory criteria:Quanity Not Sufficient.SRAVANI has been notified of need of recollection.04/30/24722 Cony Roberts Performed By: #### L 100.0100, L500.2500 ####[facility] [address] [place], [address] PLT Normal 150-450 [facility] Comment on above: Result Comment: This specimen has been REJECTED due to Laboratory criteria:Quanity Not Sufficient.SRAVANI has been notified of need of recollection.04/30/24722 Cony Roberts Performed By: #### L 100.0100, L500.2500 ####[facility] [address] [place], [address] RBC Normal 4.2-5.4 [facility] Comment on above: Result Comment: This specimen has been REJECTED due to Laboratory criteria:Quanity Not Sufficient.SRAVANI has been notified of need of recollection.04/30/24722 Cony Roberts Performed By: #### L 100.0100, L500.2500 ####[facility] [address] [facility] [address] RDW CV Normal 11.6-14.6 [facility] Comment on above: Result Comment: This specimen has been REJECTED due to Laboratory criteria:Quanity Not Sufficient.SRAVANI has been notified of need of recollection.04/30/24722 Cony Roberts Performed By: #### L 100.0100, L500.2500 ####[facility] [address] [place], [address] RDW SD Normal 35.1-43.9 [facility] Comment on above: Result Comment: This specimen has been REJECTED due to Laboratory criteria:Quanity Not Sufficient.SRAVANI has been notified of need of recollection.04/30/24722 Cony Roberts Performed By: #### L 100.0100, L500.2500 ####[facility] [address] [place], [address] WBC Normal 4.4-11.0 [facility] Comment on above: Result Comment: This specimen has been REJECTED due to Laboratory criteria:Quanity Not Sufficient.SRAVANI has been notified of need of recollection.04/30/24 0723 Cony Armando Performed By: #### L 100.0100, L500.2500 ####[facility] [address] [place], [address] 12 Lead EKGon 04-29-2024 12 Lead EKG Normal [facility] Basic Metabolic Profile (BMP )on 04-29-2024 BUN/CRE 20.7 RATIO High 10-20 [facility] Comment on above: Performed By: #### L 500.2500, L100.0100 ####[facility] [address] [place], [address] CA,Total 8.8 mg/dL Normal 8.5-10.1 [facility] Comment on above: Performed By: #### L 500.2500, L100.0100 ####[facility] [address] [place], [address] Chloride [Moles/Vol] 96 mmol/L Low 98-107 [facility] Comment on above: Performed By: #### L 500.2500, L100.0100 ####[facility] [address] [place], [address] CO2 [Moles/Vol] 26.0 mmol/L Normal 21.0-32.0 [facility] Comment on above: Performed By: #### L 500.2500, L100.0100 ####[facility] [address] [place], [address] Creatinine [Mass/Vol] 2.22 mg/dL High 0.55-1.02 [facility] Comment on above: Result Comment: The validity of the calculated GFR GFRAA in patients over70 years has not been determined. Clinical correlation isessential. Performed By: #### L 500.2500, L100.0100 ####[facility] [address] [place], [address] ECRCL 25.27 ml/min Normal [facility] Comment on above: Performed By: #### L 500.2500, L100.0100 ####[facility] [address] [place], [address] EST GFR - AA 27 mL/min Low >60 [facility] Comment on above: Result Comment: Afri can [place]i GFR Calc Performed By: #### L 500.2500, L100.0100 ####[facility] [address] [place], [address] GAP 10 Normal 5-15 [facility] Comment on above: Performed By: #### L 500.2500, L100.0100 ####[facility] [address] [place], [address] GFR/1.73 sq M.predicted among non-blacks MDRD (S/P/Bld) [Vol rate/Area] 23 mL/min/{1.73_m2} Low >60 [facility] Comment on above: Result Comment: Non- GFR Calc Performed By: #### L 500.2500, L100.0100 ####[facility] [address] [place], [address] Glucose [Mass/Vol] 209 mg/dL High 74-106 [facility] Comment on above: Result Comment: Gluc ose result greater than or equal to 200 mg/dLsuggests DIABETES MELLITUS per A.D.A. criteria. Performed By: #### L 500.2500, L100.0100 ####[facility] [address] [place], [address] Potassium [Moles/Vol] 4.1 mmol/L Normal 3.5-5.1 [facility] Comment on above: Performed By: #### L 500.2500, L100.0100 ####[facility] [address] [place], [address] Sodium [Moles/Vol] 132 mmol/L Low 136-145 [facility] Comment on above: Performed By: #### L 500.2500, L100.0100 ####[facility] [address] [place], [address] Urea nitrogen [Mass/Vol] 46 mg/dL High 7-18 [facility] Comment on above: Performed By: #### L 500.2500, L100.0100 ####[facility] [address] [place], [address] Bedside Glucoseon 04-29-2024 FINGERSTICK GLU 376 mg/dL High 74-106 [facility] Comment on above: Result Comment: JASON GEMENT OF PATIENT CARE PER NURSING PROTOCOL Performed By: #### L 501.080 ####[facility] [address] [place], [address] FINGERSTICK GLU 362 mg/dL High 74-106 [facility] Comment on above: Result Comment: JASON GEMENT OF PATIENT CARE PER NURSING PROTOCOL Performed By: #### L 501.080 ####[facility] [address] [place], [address] FINGERSTICK GLU 153 mg/dL High 74-106 [facility] Comment on above: Result Comment: JASON GEMENT OF PATIENT CARE PER NURSING PROTOCOL Performed By: #### L 501.080 ####[facility] [address] [place], [address] FINGERSTICK GLU 170 mg/dL High 74-106 [facility] Comment on above: Result Comment: JASON GEMENT OF PATIENT CARE PER NURSING PROTOCOL Performed By: #### L 501.080 ####[facility] [address] [place], [address] FINGERSTICK GLU 212 mg/dL High 74-106 [facility] Comment on above: Result Comment: JASON GEMENT OF PATIENT CARE PER NURSING PROTOCOL Performed By: #### L 501.080 ####[facility] [address] [place], [address] CBC W/Diff, Automatedon 04-18 Absolute Lymph 1.37 X10 3/uL Normal 0.83-4.51 [facility] Comment on above: Performed By: #### L 500.2500, L100.0100 ####[facility] [address] [place], [address] Absolute Neut 6.8 X10 3/uL Normal 2.0-7.7 [facility] Comment on above: Performed By: #### L 500.2500, L100.0100 ####[facility] [address] [place], [address] Basophils/100 WBC (Bld) 0.2 % Normal 0-1 [facility] Comment on above: Performed By: #### L 500.2500, L100.0100 ####[facility] [address] [place], [address] Eosinophils/100 WBC (Bld) 1.0 % Normal 0-5 [facility] Comment on above: Performed By: #### L 500.2500, L100.0100 ####[facility] [address] [place], [address] Erythrocyte distribution width (RBC) [Ratio] 14.0 % Normal 11.6-14.6 [facility] Comment on above: Performed By: #### L 500.2500, L100.0100 ####[facility] [address] [place], [address] Hematocrit (Bld) [Volume fraction] 30.9 % Low 37-47 [facility] Comment on above: Performed By: #### L 500.2500, L100.0100 ####[facility] [address] [place], [address] Hemoglobin (Bld) [Mass/Vol] 10.3 g/dL Low 12.0-15.0 [facility] Comment on above: Performed By: #### L 500.2500, L100.0100 ####[facility] [address] [place], [address] IG% 0.600 Normal 0.0-0.9 [facility] Comment on above: Result Comment: IG% - Immature Granulocytes (promyelocytes, myelocytes andmetamyelocytes) > 1% indicates that a LEFT SHIFT is Present. Performed By: #### L 500.2500, L100.0100 ####[facility] [address] [place], [address] Lymphocytes/100 WBC (Bld) 15.2 % Low 19-41 [facility] Comment on above: Performed By: #### L 500.2500, L100.0100 ####[facility] [address] [place], [address] MCH (RBC) [Entitic mass] 32.3 pg High 27.0-32.0 [facility] Comment on above: Performed By: #### L 500.2500, L100.0100 ####[facility] [address] [place], [address] MCHC (RBC) [Mass/Vol] 33.3 g/dL Normal 32-36 [facility] Comment on above: Performed By: #### L 500.2500, L100.0100 ####[facility] [address] [place], [address] MCV (RBC) [Entitic vol] 96.9 fL Normal 81-99 [facility] Comment on above: Performed By: #### L 500.2500, L100.0100 ####[facility] [address] [place], [address] Monocytes/100 WBC (Bld) 7.2 % Normal 0-10 [facility] Comment on above: Performed By: #### L 500.2500, L100.0100 ####[facility] [address] [place], [address] Neutrophils/100 WBC (Bld) 75.8 % High 47-70 [facility] Comment on above: Performed By: #### L 500.2500, L100.0100 ####[facility] [address] [place], [address] Nucleated RBC (Bld) [#/Vol] 0 10*3/uL Normal 0-5 [facility] Comment on above: Performed By: #### L 500.2500, L100.0100 ####[facility] [address] [place], [address] Platelet mean volume (Bld) [Entitic vol] 9.5 fL Normal 6.2-12.0 [facility] Comment on above: Performed By: #### L 500.2500, L100.0100 ####[facility] [address] [place], [address] Platelets (Bld) [#/Vol] 199 10*3/uL Normal 150-450 [facility] Comment on above: Performed By: #### L 500.2500, L100.0100 ####[facility] [address] [place], [address] RBC (Bld) [#/Vol] 3.19 10*6/uL Low 4.2-5.4 [facility] Comment on above: Performed By: #### L 500.2500, L100.0100 ####[facility] [address] [place], [address] RDW SD 50.2 fl High 35.1-43.9 [facility] Comment on above: Performed By: #### L 500.2500, L100.0100 ####[facility] [address] [place], [address] WBC (Bld) [#/Vol] 9.0 10*3/uL Normal 4.4-11.0 [facility] Comment on above: Performed By: #### L 500.2500, L100.0100 ####[facility] [address] [place], [address] Hemoglobin A1con 04-29-2024 HbA1c (Bld) [Mass fraction] 10.0 % High 3.8-5.6 [facility] Comment on above: Result Comment: Norm al < 5.7 % Prediabetic 5.7 - 6.4 % Diabetic >or= 6.5 % Please note range changes. Performed By: #### L 501.9985 ####[facility] [address] [place], [address] Hip 1 view with Pelvison Hip 1 view with Pelvis Normal [facility] MR/POSTOP.ANEon 04-29-2024 MR/POSTOP.ANE Normal [facility] MR/UXZOLCYH0wu 04-29-2024 MR/POSTOPAN2 Normal [facility] Operative Reporton Operative Report Normal [facility] 12 Lead EKGon 04-28-2024 12 Lead EKG Normal [facility] Basic Metabolic Profile (BMP )on 04-28-2024 BUN/CRE 23.3 RATIO High 10-20 [facility] Comment on above: Performed By: #### L 100.0100, L500.2500 ####[facility] [address] [place], [address] CA,Total 9.8 mg/dL Normal 8.5-10.1 [facility] Comment on above: Performed By: #### L 100.0100, L500.2500 ####[facility] [address] [place], [address] Chloride [Moles/Vol] 100 mmol/L Normal 98-107 [facility] Comment on above: Performed By: #### L 100.0100, L500.2500 ####[facility] [address] [place], [address] CO2 [Moles/Vol] 22.0 mmol/L Normal 21.0-32.0 [facility] Comment on above: Performed By: #### L 100.0100, L500.2500 ####[facility] [address] [place], [address] Creatinine [Mass/Vol] 2.32 mg/dL High 0.55-1.02 [facility] Comment on above: Result Comment: The validity of the calculated GFR GFRAA in patients over70 years has not been determined. Clinical correlation isessential. Performed By: #### L 100.0100, L500.2500 ####[facility] [address] [place], [address] ECRCL 24.74 ml/min Normal [facility] Comment on above: Performed By: #### L 100.0100, L500.2500 ####[facility] [address] [place], [address] EST GFR - AA 26 mL/min Low >60 [facility] Comment on above: Result Comment: Afri can [place] GFR Calc Performed By: #### L 100.0100, L500.2500 ####[facility] [address] [place], [address] GAP 11 Normal 5-15 [facility] Comment on above: Performed By: #### L 100.0100, L500.2500 ####[facility] [address] [place], [address] GFR/1.73 sq M.predicted among non-blacks MDRD (S/P/Bld) [Vol rate/Area] 22 mL/min/{1.73_m2} Low >60 [facility] Comment on above: Result Comment: Non- GFR Calc Performed By: #### L 100.0100, L500.2500 ####[facility] [address] [place], [address] Glucose [Mass/Vol] 152 mg/dL High 74-106 [facility] Comment on above: Result Comment: Fast ing Glucose result greater than or equal to 126 mg/dLsuggests DIABETES MELLITUS per A.D.A. criteria. Performed By: #### L 100.0100, L500.2500 ####[facility] [address] [place], [address] Potassium [Moles/Vol] 4.4 mmol/L Normal 3.5-5.1 [facility] Comment on above: Performed By: #### L 100.0100, L500.2500 ####[facility] [address] [place], [address] Sodium [Moles/Vol] 133 mmol/L Low 136-145 [facility] Comment on above: Performed By: #### L 100.0100, L500.2500 ####[facility] [address] [place], [address] Urea nitrogen [Mass/Vol] 54 mg/dL High 7-18 [facility] Comment on above: Performed By: #### L 100.0100, L500.2500 ####[facility] [address] [place], [address] Bedside Glucoseon 04-28-2024 FINGERSTICK GLU 170 mg/dL High 74-106 [facility] Comment on above: Result Comment: JASON GEMENT OF PATIENT CARE PER NURSING PROTOCOL Performed By: #### L 501.080 ####[facility] [address] [place], [address] FINGERSTICK GLU 177 mg/dL High 74-106 [facility] Comment on above: Result Comment: JASON GEMENT OF PATIENT CARE PER NURSING PROTOCOL Performed By: #### L 501.080 ####[facility] [address] [place], [address] Brain/Head without Contrasto n 04-28-2024 Brain/Head without Contrast Normal [facility] CBC W/Diff, Automatedon 04-18 Absolute Lymph 1.20 X10 3/uL Normal 0.83-4.51 [facility] Comment on above: Order Comment: REDRA W. PREVIOUS SPECIMEN REJECTED DUE TOCLOTTED. 04/28/24 1022 Alanis Godfrey. Performed By: #### L 100.0100 ####[facility] [address] [place], [address] Absolute Neut 15.7 X10 3/uL High 2.0-7.7 [facility] Comment on above: Order Comment: REDRA W. PREVIOUS SPECIMEN REJECTED DUE TOCLOTTED. 04/28/24 1022 Alanis Godfrey. Performed By: #### L 100.0100 ####[facility] [address] [place], [address] Basophils/100 WBC (Bld) 0.3 % Normal 0-1 [facility] Comment on above: Order Comment: REDRA W. PREVIOUS SPECIMEN REJECTED DUE TOCLOTTED. 04/28/24 1022 Alanis Godfrey. Performed By: #### L 100.0100 ####[facility] [address] [place], [address] Eosinophils/100 WBC (Bld) 0.3 % Normal 0-5 [facility] Comment on above: Order Comment: REDRA W. PREVIOUS SPECIMEN REJECTED DUE TOCLOTTED. 04/28/24 1022 Alanis Godfrey. Performed By: #### L 100.0100 ####[facility] [address] [place], [address] Erythrocyte distribution width (RBC) [Ratio] 14.1 % Normal 11.6-14.6 [facility] Comment on above: Order Comment: REDRA W. PREVIOUS SPECIMEN REJECTED DUE TOCLOTTED. 04/28/24 1022 Alanis Godfrey. Performed By: #### L 100.0100 ####[facility] [address] [place], [address] Hematocrit (Bld) [Volume fraction] 34.1 % Low 37-47 [facility] Comment on above: Order Comment: REDRA W. PREVIOUS SPECIMEN REJECTED DUE TOCLOTTED. 04/28/24 1022 Alanis Godfrey. Performed By: #### L 100.0100 ####[facility] [address] [place], [address] Hemoglobin (Bld) [Mass/Vol] 11.4 g/dL Low 12.0-15.0 [facility] Comment on above: Order Comment: REDRA W. PREVIOUS SPECIMEN REJECTED DUE TOCLOTTED. 04/28/24 1022 Alanis Godfrey. Performed By: #### L 100.0100 ####[facility] [address] [place], [address] IG% 0.900 Normal 0.0-0.9 [facility] Comment on above: Order Comment: REDRA W. PREVIOUS SPECIMEN REJECTED DUE TOCLOTTED. 04/28/24 1022 Alanis Godfrey. Result Comment: IG% - Immature Granulocytes (promyelocytes, myelocytes andmetamyelocytes) > 1% indicates that a LEFT SHIFT is Present. Performed By: #### L 100.0100 ####[facility] [address] [place], [address] Lymphocytes/100 WBC (Bld) 6.6 % Low 19-41 [facility] Comment on above: Order Comment: REDRA W. PREVIOUS SPECIMEN REJECTED DUE TOCLOTTED. 04/28/24 1022 Alanis Godfrey. Performed By: #### L 100.0100 ####[facility] [address] [place], [address] MCH (RBC) [Entitic mass] 31.8 pg Normal 27.0-32.0 [facility] Comment on above: Order Comment: REDRA W. PREVIOUS SPECIMEN REJECTED DUE TOCLOTTED. 04/28/24 1022 Alanis Godfrey. Performed By: #### L 100.0100 ####[facility] [address] [place], [address] MCHC (RBC) [Mass/Vol] 33.4 g/dL Normal 32-36 [facility] Comment on above: Order Comment: REDRA W. PREVIOUS SPECIMEN REJECTED DUE TOCLOTTED. 04/28/24 1022 Alanis Godfrey. Performed By: #### L 100.0100 ####[facility] [address] [place], [address] MCV (RBC) [Entitic vol] 95.3 fL Normal 81-99 [facility] Comment on above: Order Comment: REDRA W. PREVIOUS SPECIMEN REJECTED DUE TOCLOTTED. 04/28/24 1022 Alanis Godfrey. Performed By: #### L 100.0100 ####[facility] [address] [place], [address] Monocytes/100 WBC (Bld) 5.0 % Normal 0-10 [facility] Comment on above: Order Comment: REDRA W. PREVIOUS SPECIMEN REJECTED DUE TOCLOTTED. 04/28/24 1022 Alanis Godfrey. Performed By: #### L 100.0100 ####[facility] [address] [place], [address] Neutrophils/100 WBC (Bld) 86.9 % High 47-70 [facility] Comment on above: Order Comment: REDRA W. PREVIOUS SPECIMEN REJECTED DUE TOCLOTTED. 04/28/24 1022 Alanis Godfrey. Performed By: #### L 100.0100 ####[facility] [address] [place], [address] Nucleated RBC (Bld) [#/Vol] 0 10*3/uL Normal 0-5 [facility] Comment on above: Order Comment: REDRA W. PREVIOUS SPECIMEN REJECTED DUE TOCLOTTED. 04/28/24 1022 Alanis Godfrey. Performed By: #### L 100.0100 ####[facility] [address] [place], [address] Platelet mean volume (Bld) [Entitic vol] 9.2 fL Normal 6.2-12.0 [facility] Comment on above: Order Comment: REDRA W. PREVIOUS SPECIMEN REJECTED DUE TOCLOTTED. 04/28/24 1022 Alanis Godfrey. Performed By: #### L 100.0100 ####[facility] [address] [place], [address] Platelets (Bld) [#/Vol] 217 10*3/uL Normal 150-450 [facility] Comment on above: Order Comment: REDRA W. PREVIOUS SPECIMEN REJECTED DUE TOCLOTTED. 04/28/24 1022 Alanis Godfrey. Performed By: #### L 100.0100 ####[facility] [address] [place], [address] RBC (Bld) [#/Vol] 3.58 10*6/uL Low 4.2-5.4 [facility] Comment on above: Order Comment: REDRA W. PREVIOUS SPECIMEN REJECTED DUE TOCLOTTED. 04/28/24 1022 Alanis Godfrey. Performed By: #### L 100.0100 ####[facility] [address] [place], [address] RDW SD 49.0 fl High 35.1-43.9 [facility] Comment on above: Order Comment: REDRA W. PREVIOUS SPECIMEN REJECTED DUE TOCLOTTED. 04/28/24 1022 Alanis Godfrey. Performed By: #### L 100.0100 ####[facility] [address] [place], [address] WBC (Bld) [#/Vol] 18.1 10*3/uL High 4.4-11.0 [facility] Comment on above: Order Comment: REDRA W. PREVIOUS SPECIMEN REJECTED DUE TOCLOTTED. 04/28/24 1022 Alanis Godfrey. Performed By: #### L 100.0100 ####[facility] [address] [place], [address] Absolute Neut Normal 2.0-7.7 [facility] Comment on above: Result Comment: This specimen has been REJECTED due to Laboratory criteria:Clotted.ACOLE has been notified of need of recollection.04/28/24 1021 Alanis Godfrey Performed By: #### L 100.0100, L500.2500 ####[facility] [address] [place], [address] HCT Normal 37-47 [facility] Comment on above: Result Comment: This specimen has been REJECTED due to Laboratory criteria:Clotted.ACOLE has been notified of need of recollection.04/28/24 1021 Alanis Godfrey Performed By: #### L 100.0100, L500.2500 ####[facility] [address] [place], [address] HGB Normal 12.0-15.0 [facility] Comment on above: Result Comment: This specimen has been REJECTED due to Laboratory criteria:Clotted.ACOLE has been notified of need of recollection.04/28/241020 Alanis Godfrey Performed By: #### L 100.0100, L500.2500 ####[facility] [address] [place], [address] MCH Normal 27.0-32.0 [facility] Comment on above: Result Comment: This specimen has been REJECTED due to Laboratory criteria:Clotted.ACOLE has been notified of need of recollection.04/28/24 102 Alanis Godfrey Performed By: #### L 100.0100, L500.2500 ####[facility] [address] [place], [address] MCHC Normal 32-36 [facility] Comment on above: Result Comment: This specimen has been REJECTED due to Laboratory criteria:Clotted.ACOLE has been notified of need of recollection.04/28/24 1021 Alnais Godfrey Performed By: #### L 100.0100, L500.2500 ####[facility] [address] [place], [address] MCV Normal 81-99 [facility] Comment on above: Result Comment: This specimen has been REJECTED due to Laboratory criteria:Clotted.ACOLE has been notified of need of recollection.04/28/24 1021 Alanis Godfrey Performed By: #### L 100.0100, L500.2500 ####[facility] [address] [place], [address] NEUT% Normal 47-70 [facility] Comment on above: Result Comment: This specimen has been REJECTED due to Laboratory criteria:Clotted.ACOLE has been notified of need of recollection.04/28/24 1021 Alanis Godfrey Performed By: #### L 100.0100, L500.2500 ####[facility] [address] [place], [address] PLT Normal 150-450 [facility] Comment on above: Result Comment: This specimen has been REJECTED due to Laboratory criteria:Clotted.ACOLE has been notified of need of recollection.04/28/24 1021 Alanis Godfrey Performed By: #### L 100.0100, L500.2500 ####[facility] [address] [place], [address] RBC Normal 4.2-5.4 [facility] Comment on above: Result Comment: This specimen has been REJECTED due to Laboratory criteria:Clotted.ACOLE has been notified of need of recollection.04/28/24 1021 Alanis Godfrey Performed By: #### L 100.0100, L500.2500 ####[facility] [address] [place], [address] RDW CV Normal 11.6-14.6 [facility] Comment on above: Result Comment: This specimen has been REJECTED due to Laboratory criteria:Clotted.ACOLE has been notified of need of recollection.04/28/24 1021 Alanis Godfrey Performed By: #### L 100.0100, L500.2500 ####[facility] [address] [place], [address] RDW SD Normal 35.1-43.9 [facility] Comment on above: Result Comment: This specimen has been REJECTED due to Laboratory criteria:Clotted.ACOLE has been notified of need of recollection.04/28/24 1021 Alanis Godfrey Performed By: #### L 100.0100, L500.2500 ####[facility] [address] [place], [address] WBC Normal 4.4-11.0 [facility] Comment on above: Result Comment: This specimen has been REJECTED due to Laboratory criteria:Clotted.ACOLE has been notified of need of recollection.04/28/24 1021 Alanis Godfrey Performed By: #### L 100.0100, L500.2500 ####[facility] [address] [place], [address] Chest 1 View (Portable)on Chest 1 View (Portable) Normal [facility] Consultation - Orthopedicson 04-28-2024 Consultation - Orthopedics Normal [facility] Emergency Department Summary on 04-28-2024 Emergency Department Summary Normal [facility] H AND P Exam - Hospitaliston 04-28-2024 H&P Exam - Hospitalist Normal [facility] HIP, UNI W/ Pelvis 2-3 Views on 04-28-2024 HIP, UNI W/ Pelvis 2-3 Views Normal [facility] Shoulder min 2 Viewson 04-28 Shoulder min 2 Views Normal [facility] Spine Cervical without Contr ason 04-28-2024 Spine Cervical without Contras Normal [facility] Type AND Screenon 04-28-2024 Ab SCREEN GEL Negative Normal [facility] Comment on above: Order Comment: S Performed By: #### B TS ####[facility] [address] [place], [address] ABO and Rh group Nom (Bld) Blood group A Rh(D) positive Normal [facility] Comment on above: Order Comment: S Performed By: #### B TS ####[facility] [address] [place], [address] HH, Hemoglobin AND Hematocri ton 04-21-2024 Hematocrit (Bld) [Volume fraction] 36.4 % Low 37-47 [facility] Comment on above: Performed By: #### L 100.0600, L500.3600 ####[facility] [address] [place], [address] Hemoglobin (Bld) [Mass/Vol] 11.7 g/dL Low 12.0-15.0 [facility] Comment on above: Performed By: #### L 100.0600, L500.3600 ####[facility] [address] [place], [address] Renal Profileon 04-21-2024 Albumin [Mass/Vol] 3.2 g/dL Normal 3.2-5.0 [facility] Comment on above: Performed By: #### L 100.0600, L500.3600 ####[facility] [address] [place], [address] BUN/CRE 21.2 RATIO High 10-20 [facility] Comment on above: Performed By: #### L 100.0600, L500.3600 ####[facility] [address] [place], [address] CA,Total 9.4 mg/dL Normal 8.5-10.1 [facility] Comment on above: Performed By: #### L 100.0600, L500.3600 ####[facility] [address] [place], [address] Chloride [Moles/Vol] 104 mmol/L Normal 98-107 [facility] Comment on above: Performed By: #### L 100.0600, L500.3600 ####[facility] [address] [place], [address] CO2 [Moles/Vol] 26.0 mmol/L Normal 21.0-32.0 [facility] Comment on above: Performed By: #### L 100.0600, L500.3600 ####[facility] [address] [place], [address] Creatinine [Mass/Vol] 1.93 mg/dL High 0.55-1.02 [facility] Comment on above: Result Comment: The validity of the calculated GFR GFRAA in patients over70 years has not been determined. Clinical correlation isessential. Performed By: #### L 100.0600, L500.3600 ####[facility] [address] [place], [address] EST GFR - AA 32 mL/min Low >60 [facility] Comment on above: Result Comment: Afri can [place] GFR Calc Performed By: #### L 100.0600, L500.3600 ####[facility] [address] [place], [address] GFR/1.73 sq M.predicted among non-blacks MDRD (S/P/Bld) [Vol rate/Area] 27 mL/min/{1.73_m2} Low >60 [facility] Comment on above: Result Comment: Non- GFR Calc Performed By: #### L 100.0600, L500.3600 ####[facility] [address] [place], [address] Glucose [Mass/Vol] 170 mg/dL High 74-106 [facility] Comment on above: Result Comment: Fast ing Glucose result greater than or equal to 126 mg/dLsuggests DIABETES MELLITUS per A.D.A. criteria. Performed By: #### L 100.0600, L500.3600 ####[facility] [address] [place], [address] Phosphate [Mass/Vol] 3.3 mg/dL Normal 2.5-4.9 [facility] Comment on above: Performed By: #### L 100.0600, L500.3600 ####[facility] [address] [place], [address] Potassium [Moles/Vol] 4.3 mmol/L Normal 3.5-5.1 [facility] Comment on above: Performed By: #### L 100.0600, L500.3600 ####[facility] [address] [place], [address] Sodium [Moles/Vol] 138 mmol/L Normal 136-145 [facility] Comment on above: Performed By: #### L 100.0600, L500.3600 ####[facility] [address] [place], [address] Urea nitrogen [Mass/Vol] 41 mg/dL High 7-18 [facility] Comment on above: Performed By: #### L 100.0600, L500.3600 ####[facility] [address] [place], [address] CNPNon [facility]20[facility] -------- VAL ERICKSON ([id number]) 1945 F Date Time Provider Department 04/13/24 TESSA BROCK [facility] During your visit today, we recorded the following information about you: Carole Lundy LPN 04/13/2024 9:47 AM Signed Pt calls to report that [facility] does not have Mounjoro so she cannot get it there. [facility] also does not have it. 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 Pt is asking where else she [...] TESSA BROCK, PharmD, BCACP Primary Care Clinical [employer] Allergies As of Date: 04/13/2024 Noted Allergy [...] Units subcutaneously daily at bedtime. - Insulin [place], Disposable, 29 gauge x 1/2 Use once daily as directed. Dx E11.29 - venlafaxine ER (EFFEXOR XR) 75 mg 24 hr capsule Take 1 capsule by mouth once daily. - empagliflozin (JARDIANCE) 10 mg tablet Take 1 tablet by mouth once daily. Prescribed by inspector fabric - calcitriol (ROCALTROL) 0.5 mcg capsule Take [...] daily. Per Dr. Yulia Antoine, cardiology. - ymbreqgywqw-vrluyphpr-rm lanter (TRELEGY ELLIPTA) 100-62.5-25 mcg inhalation powder Inhale 1 Puff as instructed once daily. - docusate sodium (COLACE) 100 mg capsule Take 1 capsule by mouth as needed. - melatonin 5 mg tablet Take 2 tablets by mouth. - senna (SENOKOT) 8.6 mg tab Take 1 tablet by mouth as needed. - Vit C-Vit J-Rzsibw-SfAa-Lutein (PRESERVISION LUTEIN) 226 mg-200 unit -5 mg-0.8 mg cap Take 1 capsule by mouth once daily. - COMPOUNDED PRESCRIPTION Take 1 tablet by mouth twice daily. Plexus Bio-5 (Probiotic) - blood sugar diagnostic (Paradise CornerTOUCH ULTRA TEST) test strip Test blood sugar(s) [...] 06/17/2017 Benign (more content not included)... Normal [facility] CNPNon 04-08-2024 [facility] -------- VAL ERICKSON ([id number]) 1945 F Date Time Provider Department 04/08/24 [facility] During your visit today, we recorded the following information about you: Viktoria Johnston RN 04/08/2024 2:11 PM Signed Patient was having trouble answering telephone call for appt. Requests call back at [phone]. [facility] 04/08/2024 2:25 PM Signed Called and spoke with patient for scheduled phone visit Tessa Brock, PharmD, BCACP Primary Care Clinical [employer] Allergies As of Date: 04/08/2024 Noted Allergy Reaction RYBELSUS (SEMAGLUTIDE) 07/10/2023 5 - Intolerance Comments: Uncontrollable indigestion LEVAQUIN (LEVOFLOXACIN) 12/29/2004 Comments: itching,diarrhea,dausea, burning skin SEASONAL ALLERGIES 08/19/2014 14 - Other: See Comments Comments: Sinus SULFA (SULFONAMIDE ANTIBIOTICS) 12/29/2004 Comments: rash and hives Date Reviewed: 04/08/2024 Reviewed by: Tessa Brock [facility] - Fully Assessed Reason for Visit: Appointment [...] Units subcutaneously daily at bedtime. - Insulin [place], Disposable, 29 gauge x 1/2 Use once daily as directed. Dx E11.29 - venlafaxine ER (EFFEXOR XR) 75 mg 24 hr capsule Take 1 capsule by mouth once daily. - empagliflozin (JARDIANCE) 10 mg tablet Take 1 tablet by mouth once daily. Prescribed by inspector fabric - calcitriol (ROCALTROL) 0.5 mcg capsule Take [...] daily. Per Dr. Yulia Antoine, cardiology. - neihenpfkkn-btlaggaqz-mk lanter (TRELEGY ELLIPTA) 100-62.5-25 mcg inhalation powder Inhale 1 Puff as instructed once daily. - docusate sodium (COLACE) 100 mg capsule Take 1 capsule by mouth as needed. - melatonin 5 mg tablet Take 2 tablets by mouth. - senna (SENOKOT) 8.6 mg tab Take 1 tablet by mouth as needed. - Vit C-Vit V-Amnymu-TeDt-Lutein (PRESERVISION LUTEIN) 226 mg-200 unit -5 mg-0.8 mg cap Take 1 capsule by mouth once daily. - COMPOUNDED PRESCRIPTION Take 1 tablet by mouth twice daily. Plexus Bio-5 (Probiotic) - blood sugar diagnostic (Paradise CornerTOUCH ULTRA TEST) test strip Test blood sugar(s) [...] (degenerative disc (more content not included)... Normal [facility] CNPN Telephone ([facility]) -------- VAL ERICKSON ([id number]) 1945 F Date Time Provider Department 04/08/[address] [facility] During your visit today, we recorded the following information about you: Elizabeth Obando RN 04/08/2024 3:10 PM Signed Patient calling in and states her [facility] is unable to get her Mounjaro for her, as ordered by Reese Brock [facility]. Patient requesting script be sent to [facility], please. Thank you. SYLVAIN Byrd Antonietta [facility] 04/08/2024 3:16 PM Signed Rx sent to [facility]. Patient's request for medication is as follows: Requested Prescriptions Signed Prescriptions Disp Refills tirzepatide (MOUNJARO) 2.5 mg/0.5 mL pen injector 2 mL 1 Sig: Inject 2.5 mg subcutaneously one time a week. Authorizing Provider: KACY MARY Ordering User: TESSA BROCK, PharmD, BCACP Primary Care Clinical [employer] Allergies As of Date: 04/08/2024 Noted Allergy Reaction RYBELSUS (SEMAGLUTIDE) 07/10/2023 5 - Intolerance Comments: Uncontrollable indigestion LEVAQUIN (LEVOFLOXACIN) 12/29/2004 Comments: itching,diarrhea,dausea, burning skin SEASONAL ALLERGIES 08/19/2014 14 - Other: See Comments Comments: Sinus SULFA (SULFONAMIDE ANTIBIOTICS) 12/29/2004 Comments: rash and hives Date Reviewed: 04/08/2024 Reviewed by: Tessa Brock [facility] - Fully Assessed Reason for Visit: Patient Request [[id number]] Order(s):Order #: [id number] Prescriptions as of 04/08/2024 - tirzepatide (MOUNJARO) [...] Units subcutaneously daily at bedtime. - Insulin [place], Disposable, 29 gauge x 1/2 Use once daily as directed. Dx E11.29 - venlafaxine ER (EFFEXOR XR) 75 mg 24 hr capsule Take 1 capsule by mouth once daily. - empagliflozin (JARDIANCE) 10 mg tablet Take 1 tablet by mouth once daily. Prescribed by inspector fabric - calcitriol (ROCALTROL) 0.5 mcg capsule Take [...] daily. Per Dr. Yulia Antoine, cardiology. - afhkqiierxh-lejjjpdyx-dh lanter (TRELEGY ELLIPTA) 100-62.5-25 mcg inhalation powder Inhale 1 Puff as instructed once daily. - docusate sodium (COLACE) 100 mg capsule Take 1 capsule by mouth as needed. - melatonin 5 mg tablet Take 2 tablets by mouth. - senna (SENOKOT) 8.6 mg tab Take 1 tablet by mouth as needed. - Vit C-Vit V-Mvddlb-VcFx-Lutein (PRESERVISION LUTEIN) 226 mg-200 unit -5 mg-0.8 [...] x-ray [M89.9] (more content not included)... Normal [facility] 03-30-2024 CNPN Telephone (INTMWS) -------- VAL ERICKSON ([id number]) 1945 F Date Time Provider Department 03/30/24 KACY MARY INTHolliWS During your visit today, we recorded the following information about you: Kacy Mary APRN.TECHNICAL STAFF ENGINEER 03/30/2024 3:12 PM Signed Please let the [...] Date Reviewed: 03/25/2024 Reviewed by: Kacy Mary APRN.TECHNICAL STAFF ENGINEER - Fully Assessed Order(s):cephALEXin (KEFLEX) 250 mg [...] Units subcutaneously daily at bedtime. - Insulin [place], Disposable, 29 gauge x 1/2 Use once daily as directed. Dx E11.29 - venlafaxine ER (EFFEXOR XR) 75 mg 24 hr capsule Take 1 capsule by mouth once daily. - empagliflozin (JARDIANCE) 10 mg tablet Take 1 tablet by mouth once daily. Prescribed by inspector fabric - calcitriol (ROCALTROL) 0.5 mcg capsule Take [...] daily. Per Dr. Yulia Antoine, cardiology. - weakdnbqpbr-fzdbtgvpk-df lanter (TRELEGY ELLIPTA) 100-62.5-25 mcg inhalation powder Inhale 1 Puff as instructed once daily. - docusate sodium (COLACE) 100 mg capsule Take 1 capsule by mouth as needed. - melatonin 5 mg tablet Take 2 tablets by mouth. - senna (SENOKOT) 8.6 mg tab Take 1 tablet by mouth as needed. - Vit C-Vit U-Lisyvd-VxJy-Lutein (PRESERVISION LUTEIN) 226 mg-200 unit -5 mg-0.8 mg cap Take 1 capsule by mouth once daily. - COMPOUNDED PRESCRIPTION Take 1 tablet by mouth twice daily. Plexus Bio-5 (Probiotic) - blood sugar diagnostic ([employer] ULTRA TEST) test strip Test blood sugar(s) [...] DDD (degenera (more content not included)... Normal [facility] Urine Cultureon 03-28-2024 URC Normal [facility] Comment on above: Performed By: #### L 400.0001, M100.2200 ####[facility] [address] [place], [place], [id number] CBC-Complete Blood Cnt No Di ffon 03-25-2024 Erythrocyte distribution width (RBC) [Ratio] 14.1 % Normal 11.6-14.6 [facility] Comment on above: Performed By: #### L 503.6550, L501.0900, L500.3600, L503.6030, L509.1000, L100.0500, L506.1000 ####[facility] [address] [place], [address] Hematocrit (Bld) [Volume fraction] 36.4 % Low 37-47 [facility] Comment on above: Performed By: #### L 503.6550, L501.0900, L500.3600, L503.6030, L509.1000, L100.0500, L506.1000 ####[facility] [address] [place], [address] Hemoglobin (Bld) [Mass/Vol] 11.9 g/dL Low 12.0-15.0 [facility] Comment on above: Performed By: #### L 503.6550, L501.0900, L500.3600, L503.6030, L509.1000, L100.0500, L506.1000 ####[facility] [address] [place], [address] MCH (RBC) [Entitic mass] 31.6 pg Normal 27.0-32.0 [facility] Comment on above: Performed By: #### L 503.6550, L501.0900, L500.3600, L503.6030, L509.1000, L100.0500, L506.1000 ####[facility] [address] [place], [address] MCHC (RBC) [Mass/Vol] 32.7 g/dL Normal 32-36 [facility] Comment on above: Performed By: #### L 503.6550, L501.0900, L500.3600, L503.6030, L509.1000, L100.0500, L506.1000 ####[facility] [address] [place], [address] MCV (RBC) [Entitic vol] 96.8 fL Normal 81-99 [facility] Comment on above: Performed By: #### L 503.6550, L501.0900, L500.3600, L503.6030, L509.1000, L100.0500, L506.1000 ####[facility] [address] [place], [address] Platelet mean volume (Bld) [Entitic vol] 9.5 fL Normal 6.2-12.0 [facility] Comment on above: Performed By: #### L 503.6550, L501.0900, L500.3600, L503.6030, L509.1000, L100.0500, L506.1000 ####[facility] [address] [place], [address] Platelets (Bld) [#/Vol] 224 10*3/uL Normal 150-450 [facility] Comment on above: Performed By: #### L 503.6550, L501.0900, L500.3600, L503.6030, L509.1000, L100.0500, L506.1000 ####[facility] [address] [place], [address] RBC (Bld) [#/Vol] 3.76 10*6/uL Low 4.2-5.4 [facility] Comment on above: Performed By: #### L 503.6550, L501.0900, L500.3600, L503.6030, L509.1000, L100.0500, L506.1000 ####[facility] [address] [place], [address] RDW SD 49.5 fl High 35.1-43.9 [facility] Comment on above: Performed By: #### L 503.6550, L501.0900, L500.3600, L503.6030, L509.1000, L100.0500, L506.1000 ####[facility] [address] [place], [address] WBC (Bld) [#/Vol] 9.2 10*3/uL Normal 4.4-11.0 [facility] Comment on above: Performed By: #### L 503.6550, L501.0900, L500.3600, L503.6030, L509.1000, L100.0500, L506.1000 ####[facility] [address] [place], [address] CNOVon 03-25-2024 CNOV Office Visit (INTMWS ) -------- VAL ERICKSON ([id number]) 1945 F Date Time Provider Department 03/25/24 11:00 AM KACY MARY INTMWS During your visit today, we recorded the following information about you: Pulse Respiration Blood pressure Weight 95/minute 16/minute 124/84 130 kg Kacy Mary, TIRE REPAIRMAN.TECHNICAL STAFF ENGINEER 03/25/2024 1:05 PM Signed CC: Patient presents [...] EXTRACTION HX 2015 both eyes catacts removed, [facility] CHOLECYSTECTOMY 1970 COLONOSCOPY FLX DX [...] mL) Inj (more content not included)... Normal [facility] Ferritinon 03-25-2024 Ferritin [Mass/Vol] 94 ng/mL Normal 8-252 [facility] Comment on above: Performed By: #### L 503.6550, L501.0900, L500.3600, L503.6030, L509.1000, L100.0500, L506.1000 ####[facility] [address] [place], [place], [id number] HEMOGLOBIN A1C (POC)on 03-25 HbA1c (Bld) [Mass fraction] 11.0 % Abnormal 4.3 - 5.6 % [facility] Comment on above: Location:[address], [place], [address] Point of care (POC) Hemoglobin A1c (HGBA1C) [...] specific diabetes management situations: The POC device tool clerk provides a normal range of 4.2% to 6.5% for the HGBA1C POC test. However, the [place] [employer] guidelines indicate that patients with [...] Interpretation and review of laboratory results Abnormal [facility] Iron+Iron Binding Capacityon 03-25-2024 Iron [Mass/Vol] 71 ug/dL Normal 50-170 [facility] Comment on above: Performed By: #### L 503.6550, L501.0900, L500.3600, L503.6030, L509.1000, L100.0500, L506.1000 ####[facility] [address] [place], [address] IRON SATURATION 25.4 Normal 15.0-55.0 [facility] Comment on above: Performed By: #### L 503.6550, L501.0900, L500.3600, L503.6030, L509.1000, L100.0500, L506.1000 ####[facility] [address] [place], [address] TIBC 279 ug/dL Normal 250-450 [facility] Comment on above: Performed By: #### L 503.6550, L501.0900, L500.3600, L503.6030, L509.1000, L100.0500, L506.1000 ####[facility] [address] [place], [address] PTHINon 03-25-2024 PTH 207.6 pg/mL High 18.4-80.1 [facility] Comment on above: Performed By: #### L 503.6550, L501.0900, L500.3600, L503.6030, L509.1000, L100.0500, L506.1000 ####[facility] [address] [place], [address] Protein+Creatinine Ratio,Uri neon 03-25-2024 PROT:CRE RATIO 870 mg/g CRE High 0-200 [facility] Comment on above: Performed By: #### L 503.6550, L501.0900, L500.3600, L503.6030, L509.1000, L100.0500, L506.1000 ####[facility] [address] [place], [address] Protein (U) [Mass/Vol] 22.0 mg/dL High <11.9 [facility] Comment on above: Performed By: #### L 503.6550, L501.0900, L500.3600, L503.6030, L509.1000, L100.0500, L506.1000 ####[facility] [address] [place], [address] UR CREAT 25.30 mg/dL Normal NO RANGE EST. [facility] Comment on above: Performed By: #### L 503.6550, L501.0900, L500.3600, L503.6030, L509.1000, L100.0500, L506.1000 ####[facility] [address] [place], [address] Renal Profileon 03-25-2024 Albumin [Mass/Vol] 3.5 g/dL Normal 3.2-5.0 [facility] Comment on above: Performed By: #### L 503.6550, L501.0900, L500.3600, L503.6030, L509.1000, L100.0500, L506.1000 ####[facility] [address] [place], [address] BUN/CRE 16.2 RATIO Normal 10-20 [facility] Comment on above: Performed By: #### L 503.6550, L501.0900, L500.3600, L503.6030, L509.1000, L100.0500, L506.1000 ####[facility] [address] [place], [address] CA,Total 9.6 mg/dL Normal 8.5-10.1 [facility] Comment on above: Performed By: #### L 503.6550, L501.0900, L500.3600, L503.6030, L509.1000, L100.0500, L506.1000 ####[facility] [address] [place], [address] Chloride [Moles/Vol] 105 mmol/L Normal 98-107 [facility] Comment on above: Performed By: #### L 503.6550, L501.0900, L500.3600, L503.6030, L509.1000, L100.0500, L506.1000 ####[facility] [address] [place], [address] CO2 [Moles/Vol] 23.0 mmol/L Normal 21.0-32.0 [facility] Comment on above: Performed By: #### L 503.6550, L501.0900, L500.3600, L503.6030, L509.1000, L100.0500, L506.1000 ####[facility] [address] [place], [address] Creatinine [Mass/Vol] 2.34 mg/dL High 0.55-1.02 [facility] Comment on above: Result Comment: The validity of the calculated GFR GFRAA in patients over70 years has not been determined. Clinical correlation isessential. Performed By: #### L 503.6550, L501.0900, L500.3600, L503.6030, L509.1000, L100.0500, L506.1000 ####[facility] [address] [place], [address] EST GFR - AA 26 mL/min Low >60 [facility] Comment on above: Result Comment: Afri can [place]i GFR Calc Performed By: #### L 503.6550, L501.0900, L500.3600, L503.6030, L509.1000, L100.0500, L506.1000 ####[facility] [address] [place], [address] GFR/1.73 sq M.predicted among non-blacks MDRD (S/P/Bld) [Vol rate/Area] 21 mL/min/{1.73_m2} Low >60 [facility] Comment on above: Result Comment: Non- GFR Calc Performed By: #### L 503.6550, L501.0900, L500.3600, L503.6030, L509.1000, L100.0500, L506.1000 ####[facility] [address] [place], [address] Glucose [Mass/Vol] 271 mg/dL High 74-106 [facility] Comment on above: Result Comment: Gluc ose result greater than or equal to 200 mg/dLsuggests DIABETES MELLITUS per A.D.A. criteria. Performed By: #### L 503.6550, L501.0900, L500.3600, L503.6030, L509.1000, L100.0500, L506.1000 ####[facility] [address] [place], [address] Phosphate [Mass/Vol] 3.4 mg/dL Normal 2.5-4.9 [facility] Comment on above: Performed By: #### L 503.6550, L501.0900, L500.3600, L503.6030, L509.1000, L100.0500, L506.1000 ####[facility] [address] [place], [address] Potassium [Moles/Vol] 4.6 mmol/L Normal 3.5-5.1 [facility] Comment on above: Performed By: #### L 503.6550, L501.0900, L500.3600, L503.6030, L509.1000, L100.0500, L506.1000 ####[facility] [address] [place], [address] Sodium [Moles/Vol] 134 mmol/L Low 136-145 [facility] Comment on above: Performed By: #### L 503.6550, L501.0900, L500.3600, L503.6030, L509.1000, L100.0500, L506.1000 ####[facility] [address] [place], [address] Urea nitrogen [Mass/Vol] 38 mg/dL High 7-18 [facility] Comment on above: Performed By: #### L 503.6550, L501.0900, L500.3600, L503.6030, L509.1000, L100.0500, L506.1000 ####[facility] [address] [place], [address] Urinalysis, Completeon 03-25 EPI,SQUAMOUS 0-5 SEEN Normal 5-10 [facility] Comment on above: Order Comment: UA W ITH MICROSCOPIC PER DR BLANCO IN LAB FROM [facility], Random Performed By: #### L 400.0001, ####[facility] [address] [place], [address] WBC 0-5 SEEN Normal 0-5 [facility] Comment on above: Order Comment: UA W ITH MICROSCOPIC PER DR BLANCO IN LAB FROM [facility], Random Performed By: #### L 400.0001, M1.2199 ####[facility] [address] [place], [address] BILIRUBIN URINE Negative Normal Negative [facility] Comment on above: Order Comment: UAC W ITH MICROSCOPIC PER DR BLANCO IN LAB FROM [facility], Random Performed By: #### L 400.0001, .2199 ####[facility] [address] [place], [address] Clarity (U) Clear Normal Clear [facility] Comment on above: Order Comment: UAC W ITH MICROSCOPIC PER DR BLANCO IN LAB FROM [facility], Random Performed By: #### L 400.0001, .2199 ####[facility] [address] [place], [address] Color (U) Straw Normal Yellow [facility] Comment on above: Order Comment: UA W ITH MICROSCOPIC PER DR BLANCO IN LAB FROM [facility], Random Performed By: #### L 400.0001, ####[facility] [address] [place], [address] GLUCOSE, UR 1000 mg/dl Abnormal Normal [facility] Comment on above: Order Comment: UA W ITH MICROSCOPIC PER DR BLANCO IN LAB FROM [facility], Random Performed By: #### L 400.0001, ####[facility] [address] [place], [address] KETONE UR Negative Normal Negative [facility] Comment on above: Order Comment: UA W ITH MICROSCOPIC PER DR BLANCO IN LAB FROM [facility], Random Performed By: #### L 400.0001, ####[facility] [address] [place], [address] LEUK ESTERASE 25 /ul Abnormal Negative [facility] Comment on above: Order Comment: UAC W ITH MICROSCOPIC PER DR BLANCO IN LAB FROM [facility], Random Performed By: #### L 400.0001, ####[facility] [address] [place], [address] Nitrite Ql (U) Negative Normal Negative [facility] Comment on above: Order Comment: UAC W ITH MICROSCOPIC PER DR BLANCO IN LAB FROM [facility], Random Performed By: #### L 400.0001, ####[facility] [address] [place], [address] OCCULT BLOOD-UR Negative Normal Negative [facility] Comment on above: Order Comment: [facility] ITH MICROSCOPIC PER DR BLANCO IN LAB FROM [facility], Random Performed By: #### L 400.0001, ####[facility] [address] [place], [address] pH UR 5.0 Normal 5.0 - 8.0 [facility] Comment on above: Order Comment: [facility] W ITH MICROSCOPIC PER DR BLANCO IN LAB FROM [facility], Random Performed By: #### L 400.0001, ####[facility] [address] [place], [address] PROT DIPSTX 15 mg/dl Abnormal Negative [facility] Comment on above: Order Comment: [facility] ITH MICROSCOPIC PER DR BLANCO IN LAB FROM [facility], [facility] Performed By: #### L 400.0001, ####[facility] [address] [place], [address] SP.GR. DIPSTX 1.010 Normal 1.002-1.030 [facility] Comment on above: Order Comment: [facility] ITH MICROSCOPIC PER DR BLANCO IN LAB FROM [facility], Random Performed By: #### L 400.0001, ####[facility] [address] [place], [address] UROBILI Normal Normal Normal [facility] Comment on above: Order Comment: [facility] W ITH MICROSCOPIC PER DR BLANCO IN LAB FROM [facility], Random Performed By: #### L 400.0001, ####[facility] [address] [place], [address] BACTERIA 0 SEEN Normal None Seen [facility] Comment on above: Order Comment: [facility] W ITH MICROSCOPIC PER DR BLANCO IN LAB FROM [facility], Random Performed By: #### L 400.0001, M1.0 ####[facility] [address] [place], [place], [id number] Mucus Ql (Urine sed) 0 SEEN Normal [facility] Comment on above: Order Comment: [facility] W ITH MICROSCOPIC PER DR BLANCO IN LAB FROM [facility], [facility] Performed By: #### L 400.0001, M1.0 ####[facility] [address] [place], [address] RBC 0 SEEN Normal 0-5 [facility] Comment on above: Order Comment: [facility] W ITH MICROSCOPIC PER DR BLANCO IN LAB FROM [facility], Random Performed By: #### L 400.0001, M1.2199 ####[facility] [address] [place], [place], [id number] Vitamin D,25 Hydroxyon 03-25 Vitamin D 25-OH 26.5 ng/mL Normal [facility] Comment on above: Result Comment: Maryann min D 25(OH) Status Range Deficiency <20 ng/mL (50nmol/L) Insufficiency 20 - 30 ng/mL (50 - 75 nmol/L) Sufficiency 30 - 100 ng/mL (75 - 250 nmol/L) Toxicity >100 ng/mL (>250 nmol/L) Performed By: #### L 503.6550, L501.0900, L500.3600, L503.6030, L509.1000, L100.0500, L506.1000 ####[facility] [address] [place], [place], [address] Rita 02-26-2024 VIPIN Telephone ([facility]) -------- VAL ERICKSON ([id number]) 1945 F Date Time Provider Department 02/26/24 TESSA BROCK [facility] During your visit today, we recorded the following information about you: Tessa Brock RPh 02/26/2024 2:48 PM Signed Called patient for scheduled pharmacy phone follow up; unable to reach after multiple attempts. Left with phone number to reschedule appointment. Tessa Brock, PharmD, BCACP Primary Care Clinical [employer] Allergies As of Date: 02/26/2024 Noted Allergy Reaction RYBELSUS (SEMAGLUTIDE) 07/10/2023 5 - Intolerance Comments: Uncontrollable indigestion LEVAQUIN (LEVOFLOXACIN) 12/29/2004 Comments: itching,diarrhea,dausea, burning skin SEASONAL ALLERGIES 08/19/2014 14 - Other: See Comments Comments: Sinus SULFA (SULFONAMIDE ANTIBIOTICS) 12/29/2004 Comments: rash and hives Date Reviewed: 01/15/2024 Reviewed by: Tessa Brock [facility] - Fully Assessed Reason for Visit: Missed Appointment [1304] Prescriptions as of 02/27/2024 - insulin glargine (LANTUS SOLOSTAR U-100 INSULIN) 100 unit/mL (3 mL) Inject 60 Units subcutaneously daily at bedtime. - furosemide (LASIX) 20 mg tablet Take 1 tablet by mouth once daily. Take an extra 20 mg tablet daily as needed - Insulin [place], Disposable, 29 gauge x 1/2 Use once daily as directed. Dx E11.29 - venlafaxine ER (EFFEXOR XR) 75 mg 24 hr capsule Take 1 capsule by mouth once daily. - gabapentin (NEURONTIN) 300 mg capsule Take 1 capsule by mouth two times a day for 180 days. - empagliflozin (JARDIANCE) 10 mg tablet Take 1 tablet by mouth once daily. Prescribed by inspector fabric - calcitriol (ROCALTROL) 0.5 mcg capsule Take [...] daily. Per Dr. Yulia Antoine, cardiology. - gzvaynibzap-vdntqzwxy-vv lanter (TRELEGY ELLIPTA) 100-62.5-25 mcg inhalation powder Inhale 1 Puff as instructed once daily. - docusate sodium (COLACE) 100 mg capsule Take 1 capsule by mouth as needed. - melatonin 5 mg tablet Take 2 tablets by mouth. - senna (SENOKOT) 8.6 mg tab Take 1 tablet by mouth as needed. - Vit C-Vit E-Hvgymy-QtGd-Lutein (PRESERVISION LUTEIN) 226 mg-200 unit -5 mg-0.8 mg cap Take 1 capsule by mouth once daily. - COMPOUNDED PRESCRIPTION Take 1 tablet by mouth twice daily. Plexus Bio-5 (Probiotic) - blood sugar diagnostic ([employer] ULTRA TEST) test strip Test blood sugar(s) [...] antidiur*01/29/2022 Hyp (more content not included)... Normal [facility] HH, Hemoglobin AND Hematocri ton 02-26-2024 Hematocrit (Bld) [Volume fraction] 35.7 % Low 37-47 [facility] Comment on above: Performed By: #### L 100.0600, L500.3600 ####[facility] [address] [place], [place], [id number] Hemoglobin (Bld) [Mass/Vol] 12.0 g/dL Normal 12.0-15.0 [facility] Comment on above: Performed By: #### L 100.0600, L500.3600 ####[facility] [address] [place], [address] Renal Profileon 02-26-2024 Albumin [Mass/Vol] 3.5 g/dL Normal 3.2-5.0 [facility] Comment on above: Performed By: #### L 100.0600, L500.3600 ####[facility] [address] [place], [address] BUN/CRE 17.3 RATIO Normal 10-20 [facility] Comment on above: Performed By: #### L 100.0600, L500.3600 ####[facility] [address] [place], [address] CA,Total 9.7 mg/dL Normal 8.5-10.1 [facility] Comment on above: Performed By: #### L 100.0600, L500.3600 ####[facility] [address] [place], [address] Chloride [Moles/Vol] 105 mmol/L Normal 98-107 [facility] Comment on above: Performed By: #### L 100.0600, L500.3600 ####[facility] [address] [place], [address] CO2 [Moles/Vol] 25.0 mmol/L Normal 21.0-32.0 [facility] Comment on above: Performed By: #### L 100.0600, L500.3600 ####[facility] [address] [place], [address] Creatinine [Mass/Vol] 2.48 mg/dL High 0.55-1.02 [facility] Comment on above: Result Comment: The validity of the calculated GFR GFRAA in patients over70 years has not been determined. Clinical correlation isessential. Performed By: #### L 100.0600, L500.3600 ####[facility] [address] [place], [address] EST GFR - AA 24 mL/min Low >60 [facility] Comment on above: Result Comment: Afri can [place] GFR Calc Performed By: #### L 100.0600, L500.3600 ####[facility] [address] [place], [address] GFR/1.73 sq M.predicted among non-blacks MDRD (S/P/Bld) [Vol rate/Area] 20 mL/min/{1.73_m2} Low >60 [facility] Comment on above: Result Comment: Non- GFR Calc Performed By: #### L 100.0600, L500.3600 ####[facility] [address] [place], [address] Glucose [Mass/Vol] 210 mg/dL High 74-106 [facility] Comment on above: Result Comment: Gluc ose result greater than or equal to 200 mg/dLsuggests DIABETES MELLITUS per A.D.A. criteria. Performed By: #### L 100.0600, L500.3600 ####[facility] [address] [place], [address] Phosphate [Mass/Vol] 3.0 mg/dL Normal 2.5-4.9 [facility] Comment on above: Performed By: #### L 100.0600, L500.3600 ####[facility] [address] [place], [address] Potassium [Moles/Vol] 3.9 mmol/L Normal 3.5-5.1 [facility] Comment on above: Performed By: #### L 100.0600, L500.3600 ####[facility] [address] [place], [address] Sodium [Moles/Vol] 137 mmol/L Normal 136-145 [facility] Comment on above: Performed By: #### L 100.0600, L500.3600 ####[facility] [address] [place], [address] Urea nitrogen [Mass/Vol] 43 mg/dL High 7-18 [facility] Comment on above: Performed By: #### L 100.0600, L500.3600 ####[facility] [address] [place], [address] HH, Hemoglobin AND Hematocri ton 01-29-2024 Hematocrit (Bld) [Volume fraction] 35.5 % Low 37-47 [facility] Comment on above: Performed By: #### L 100.0600, L500.3600 ####[facility] [address] [place], [address] Hemoglobin (Bld) [Mass/Vol] 11.5 g/dL Low 12.0-15.0 [facility] Comment on above: Performed By: #### L 100.0600, L500.3600 ####[facility] [address] [place], [address] Renal Profileon 01-29-2024 Albumin [Mass/Vol] 3.3 g/dL Normal 3.2-5.0 [facility] Comment on above: Performed By: #### L 100.0600, L500.3600 ####[facility] [address] [place], [address] BUN/CRE 19.1 RATIO Normal 10-20 [facility] Comment on above: Performed By: #### L 100.0600, L500.3600 ####[facility] [address] [place], [address] CA,Total 9.3 mg/dL Normal 8.5-10.1 [facility] Comment on above: Performed By: #### L 100.0600, L500.3600 ####[facility] [address] [place], [address] Chloride [Moles/Vol] 105 mmol/L Normal 98-107 [facility] Comment on above: Performed By: #### L 100.0600, L500.3600 ####[facility] [address] [place], [address] CO2 [Moles/Vol] 22.0 mmol/L Normal 21.0-32.0 [facility] Comment on above: Performed By: #### L 100.0600, L500.3600 ####[facility] [address] [place], [address] Creatinine [Mass/Vol] 2.36 mg/dL High 0.55-1.02 [facility] Comment on above: Result Comment: The validity of the calculated GFR GFRAA in patients over70 years has not been determined. Clinical correlation isessential. Performed By: #### L 100.0600, L500.3600 ####[facility] [address] [place], [address] EST GFR - AA 26 mL/min Low >60 [facility] Comment on above: Result Comment: Afri can Kuwaiti GFR Calc Performed By: #### L 100.0600, L500.3600 ####[facility] [address] [place], [address] GFR/1.73 sq M.predicted among non-blacks MDRD (S/P/Bld) [Vol rate/Area] 21 mL/min/{1.73_m2} Low >60 [facility] Comment on above: Result Comment: Non- GFR Calc Performed By: #### L 100.0600, L500.3600 ####[facility] [address] [place], [address] Glucose [Mass/Vol] 281 mg/dL High 74-106 [facility] Comment on above: Result Comment: Gluc ose result greater than or equal to 200 mg/dLsuggests DIABETES MELLITUS per A.D.A. criteria. Performed By: #### L 100.0600, L500.3600 ####[facility] [address] [place], [address] Phosphate [Mass/Vol] 2.8 mg/dL Normal 2.5-4.9 [facility] Comment on above: Performed By: #### L 100.0600, L500.3600 ####[facility] [address] [place], [address] Potassium [Moles/Vol] 4.0 mmol/L Normal 3.5-5.1 [facility] Comment on above: Performed By: #### L 100.0600, L500.3600 ####[facility] [address] [place], [address] Sodium [Moles/Vol] 136 mmol/L Normal 136-145 [facility] Comment on above: Performed By: #### L 100.0600, L500.3600 ####[facility] [address] [place], [address] Urea nitrogen [Mass/Vol] 45 mg/dL High 7-18 [facility] Comment on above: Performed By: #### L 100.0600, L500.3600 ####[facility] [address] [place], [address] HH, Hemoglobin AND Hematocri ton 01-01-2024 Hematocrit (Bld) [Volume fraction] 33.2 % Low 37-47 [facility] Comment on above: Performed By: #### L 100.0600, L500.3600, L503.7150 ####[facility] [address] [place], [address] Hemoglobin (Bld) [Mass/Vol] 10.9 g/dL Low 12.0-15.0 [facility] Comment on above: Performed By: #### L 100.0600, L500.3600, L503.6150 ####[facility] [address] [place], [address] Ironon 01-01-2024 Iron [Mass/Vol] 73 ug/dL Normal 50-170 [facility] Comment on above: Performed By: #### L 100.0600, L500.3600, L503.6150 ####[facility] [address] [place], [address] Renal Profileon 01-01-2024 Albumin [Mass/Vol] 3.3 g/dL Normal 3.2-5.0 [facility] Comment on above: Performed By: #### L 100.0600, L500.3600, L503.6150 ####[facility] [address] [place], [address] BUN/CRE 21.6 RATIO High 10-20 [facility] Comment on above: Performed By: #### L 100.0600, L500.3600, L503.6150 ####[facility] [address] [place], [address] CA,Total 9.7 mg/dL Normal 8.5-10.1 [facility] Comment on above: Performed By: #### L 100.0600, L500.3600, L503.6150 ####[facility] [address] [place], [address] Chloride [Moles/Vol] 105 mmol/L Normal 98-107 [facility] Comment on above: Performed By: #### L 100.0600, L500.3600, L503.6150 ####[facility] [address] [place], [address] CO2 [Moles/Vol] 24.0 mmol/L Normal 21.0-32.0 [facility] Comment on above: Performed By: #### L 100.0600, L500.3600, L503.6150 ####[facility] [address] [place], [address] Creatinine [Mass/Vol] 2.27 mg/dL High 0.55-1.02 [facility] Comment on above: Result Comment: The validity of the calculated GFR GFRAA in patients over70 years has not been determined. Clinical correlation isessential. Performed By: #### L 100.0600, L500.3600, L503.6150 ####[facility] [address] [place], [address] EST GFR - AA 27 mL/min Low >60 [facility] Comment on above: Result Comment: Afri can [place]i GFR Calc Performed By: #### L 100.0600, L500.3600, L503.6150 ####[facility] [address] [place], [address] GFR/1.73 sq M.predicted among non-blacks MDRD (S/P/Bld) [Vol rate/Area] 22 mL/min/{1.73_m2} Low >60 [facility] Comment on above: Result Comment: Non- GFR Calc Performed By: #### L 100.0600, L500.3600, L503.6150 ####[facility] [address] [place], [address] Glucose [Mass/Vol] 185 mg/dL High 74-106 [facility] Comment on above: Result Comment: Fast ing Glucose result greater than or equal to 126 mg/dLsuggests DIABETES MELLITUS per A.D.A. criteria. Performed By: #### L 100.0600, L500.3600, L503.6150 ####[facility] [address] [place], [address] Phosphate [Mass/Vol] 4.7 mg/dL Normal 2.5-4.9 [facility] Comment on above: Performed By: #### L 100.0600, L500.3600, L503.6150 ####[facility] [address] [place], [address] Potassium [Moles/Vol] 4.1 mmol/L Normal 3.5-5.1 [facility] Comment on above: Performed By: #### L 100.0600, L500.3600, L503.6150 ####[facility] [address] [place], [address] Sodium [Moles/Vol] 137 mmol/L Normal 136-145 [facility] Comment on above: Performed By: #### L 100.0600, L500.3600, L503.6150 ####[facility] [address] [place], [address] Urea nitrogen [Mass/Vol] 49 mg/dL High 7-18 [facility] Comment on above: Performed By: #### L 100.0600, L500.3600, L503.6150 ####[facility] [address] [place], [address] HH, Hemoglobin AND Hematocri ton 12-09-2023 Hematocrit (Bld) [Volume fraction] 36.1 % Low 37-47 [facility] Comment on above: Performed By: #### L 100.0600, L500.3600 ####[facility] [address] [place], [address] Hemoglobin (Bld) [Mass/Vol] 11.4 g/dL Low 12.0-15.0 [facility] Comment on above: Performed By: #### L 100.0600, L500.3600 ####[facility] [address] [place], [address] Renal Profileon 12-09-2023 Albumin [Mass/Vol] 3.0 g/dL Low 3.2-5.0 [facility] Comment on above: Performed By: #### L 100.0600, L500.3600 ####[facility] [address] [place], [address] BUN/CRE 17.5 RATIO Normal 10-20 [facility] Comment on above: Performed By: #### L 100.0600, L500.3600 ####[facility] [address] [place], [address] CA,Total 9.8 mg/dL Normal 8.5-10.1 [facility] Comment on above: Performed By: #### L 100.0600, L500.3600 ####[facility] [address] [place], [address] Chloride [Moles/Vol] 102 mmol/L Normal 98-107 [facility] Comment on above: Performed By: #### L 100.0600, L500.3600 ####[facility] [address] [place], [address] CO2 [Moles/Vol] 24.0 mmol/L Normal 21.0-32.0 [facility] Comment on above: Performed By: #### L 100.0600, L500.3600 ####[facility] [address] [place], [address] Creatinine [Mass/Vol] 2.34 mg/dL High 0.55-1.02 [facility] Comment on above: Result Comment: The validity of the calculated GFR GFRAA in patients over70 years has not been determined. Clinical correlation isessential. Performed By: #### L 100.0600, L500.3600 ####[facility] [address] [place], [address] EST GFR - AA 26 mL/min Low >60 [facility] Comment on above: Result Comment: Afri can [place]i GFR Calc Performed By: #### L 100.0600, L500.3600 ####[facility] [address] [place], [address] GFR/1.73 sq M.predicted among non-blacks MDRD (S/P/Bld) [Vol rate/Area] 21 mL/min/{1.73_m2} Low >60 [facility] Comment on above: Result Comment: Non- GFR Calc Performed By: #### L 100.0600, L500.3600 ####[facility] [address] [place], [address] Glucose [Mass/Vol] 196 mg/dL High 74-106 [facility] Comment on above: Result Comment: Fast ing Glucose result greater than or equal to 126 mg/dLsuggests DIABETES MELLITUS per A.D.A. criteria. Performed By: #### L 100.0600, L500.3600 ####[facility] [address] [place], [address] Phosphate [Mass/Vol] 3.5 mg/dL Normal 2.5-4.9 [facility] Comment on above: Performed By: #### L 100.0600, L500.3600 ####[facility] [address] [place], [address] Potassium [Moles/Vol] 4.3 mmol/L Normal 3.5-5.1 [facility] Comment on above: Performed By: #### L 100.0600, L500.3600 ####[facility] [address] [place], [address] Sodium [Moles/Vol] 137 mmol/L Normal 136-145 [facility] Comment on above: Performed By: #### L 100.0600, L500.3600 ####[facility] [address] [place], [address] Urea nitrogen [Mass/Vol] 41 mg/dL High 7-18 [facility] Comment on above: Performed By: #### L 100.0600, L500.3600 ####[facility] [address] [place], [address] Basic metabolic 2000 panelon 11-26-2023 Anion gap [Moles/Vol] 15 mmol/L Normal 10-20 [facility] Comment on above: Performed By: #### 8 9577-1 #### AKOSUA SEGOVIA ([id number]) [facility] ([facility]) [address] [place] [address] Calcium [Mass/Vol] 9.6 mg/dL Normal 8.6-10.3 [facility] Comment on above: Performed By: #### 8 9577-1 #### AKOSUA SEGOVIA ([id number]) [facility] ([facility]) [address] [place] [address] Chloride [Moles/Vol] 100 mmol/L Normal 98-107 [facility] Comment on above: Performed By: #### 8 9577-1 #### AKOSUA SEGOVIA ([id number]) [facility] ([facility]) [facility] [place] [address] CO2 [Moles/Vol] 24 mmol/L Normal 21-32 [facility] Comment on above: Performed By: #### 8 9577-1 #### AKOSUA SEGOVIA ([id number]) [facility] ([facility]) [address] [place] [address] Creatinine [Mass/Vol] 2.26 mg/dL High 0.50-1.05 [facility] Comment on above: Performed By: #### 8 9577-1 #### AKOSUA SEGOVIA ([id number]) [facility] ([facility]) [address] [place] [address] Glomerular filtration rate/1.73 sq M.predicted 22 mL/min/1.73m*2 Low >60 [facility] Comment on above: Result Comment: Calc ulations of estimated GFR are performed using the 2020 CKD-EPI Study Refit equation without the race variable for the IDMS-Traceable creatinine methods. https://jasn.asnjournals.org/content//ASN.512796 5189 Performed By: #### 8 9577-1 #### AKOSUA SEGOVIA ([id number]) [facility] ([facility]) [address] [place] [address] Glucose [Mass/Vol] 73 mg/dL Low 74-99 [facility] Comment on above: Performed By: #### 8 9577-1 #### AKOSUA SEGOVIA ([id number]) [facility] ([facility]) [address] [place] [address] Potassium [Moles/Vol] 4.0 mmol/L Normal 3.5-5.3 [facility] Comment on above: Performed By: #### 8 9577-1 #### AKOSUA SEGOVIA ([id number]) [facility] ([facility]) [address] [place] [address] Sodium [Moles/Vol] 135 mmol/L Low 136-145 [facility] Comment on above: Performed By: #### 8 9577-1 #### AKOSUA SEGOVIA ([id number]) [facility] ([facility]) [address] [place] [address] Urea nitrogen [Mass/Vol] 48 mg/dL High 6-23 [facility] Comment on above: Performed By: #### 8 9577-1 #### AKOSUA SEGOVIA ([id number]) [facility] ([facility]) [address] [place] [address] HH, Hemoglobin AND Hematocri ton 11-06-2023 Hematocrit (Bld) [Volume fraction] 37.1 % Normal 37-47 [facility] Comment on above: Performed By: #### L 100.0600, L500.3600 ####[facility] [address] [place], [place], [address] Hemoglobin (Bld) [Mass/Vol] 11.6 g/dL Low 12.0-15.0 [facility] Comment on above: Performed By: #### L 100.0600, L500.3600 ####[facility] [address] [place], [address] Renal Profileon 11-06-2023 Albumin [Mass/Vol] 3.3 g/dL Normal 3.2-5.0 [facility] Comment on above: Performed By: #### L 100.0600, L500.3600 ####[facility] [address] [place], [address] BUN/CRE 17.8 RATIO Normal 10-20 [facility] Comment on above: Performed By: #### L 100.0600, L500.3600 ####[facility] [address] [place], [address] CA,Total 9.9 mg/dL Normal 8.5-10.1 [facility] Comment on above: Performed By: #### L 100.0600, L500.3600 ####[facility] [address] [place], [address] Chloride [Moles/Vol] 106 mmol/L Normal 98-107 [facility] Comment on above: Performed By: #### L 100.0600, L500.3600 ####[facility] [address] [place], [address] CO2 [Moles/Vol] 25.0 mmol/L Normal 21.0-32.0 [facility] Comment on above: Performed By: #### L 100.0600, L500.3600 ####[facility] [address] [place], [address] Creatinine [Mass/Vol] 2.30 mg/dL High 0.55-1.02 [facility] Comment on above: Result Comment: The validity of the calculated GFR GFRAA in patients over70 years has not been determined. Clinical correlation isessential. Performed By: #### L 100.0600, L500.3600 ####[facility] [address] [place], [address] EST GFR - AA 26 mL/min Low >60 [facility] Comment on above: Result Comment: Afri can Kuwaiti GFR Calc Performed By: #### L 100.0600, L500.3600 ####[facility] [address] [place], [address] GFR/1.73 sq M.predicted among non-blacks MDRD (S/P/Bld) [Vol rate/Area] 22 mL/min/{1.73_m2} Low >60 [facility] Comment on above: Result Comment: Non- GFR Calc Performed By: #### L 100.0600, L500.3600 ####[facility] [address] [place], [address] Glucose [Mass/Vol] 144 mg/dL High 74-106 [facility] Comment on above: Result Comment: Fast ing Glucose result greater than or equal to 126 mg/dLsuggests DIABETES MELLITUS per A.D.A. criteria. Performed By: #### L 100.0600, L500.3600 ####[facility] [address] [place], [address] Phosphate [Mass/Vol] 3.9 mg/dL Normal 2.5-4.9 [facility] Comment on above: Performed By: #### L 100.0600, L500.3600 ####[facility] [address] [place], [address] Potassium [Moles/Vol] 4.3 mmol/L Normal 3.5-5.1 [facility] Comment on above: Performed By: #### L 100.0600, L500.3600 ####[facility] [address] [place], [address] Sodium [Moles/Vol] 137 mmol/L Normal 136-145 [facility] Comment on above: Performed By: #### L 100.0600, L500.3600 ####[facility] [address] [place], [address] Urea nitrogen [Mass/Vol] 41 mg/dL High 7-18 [facility] Comment on above: Performed By: #### L 100.0600, L500.3600 ####[facility] [address] [place], [address] CBC-Complete Blood Cnt No Di ffon 10-09-2023 Erythrocyte distribution width (RBC) [Ratio] 14.3 % Normal 11.6-14.6 [facility] Comment on above: Order Comment: DR MARCELO ORDERED RENAL, CBC, PTH, VITD, PROCRE URINE,DR MANUEL ORDERED CBC,CMP,LIPID,MIACREA URINE,A1C, Performed By: #### L 501.0900, L502.0250, L503.6030, L501.2300, L501.9985, L506.1000, L100.0500, L509.1000, L500.4050, L503.6550, L500.4100 ####[facility] [address] [place], [address] Hematocrit (Bld) [Volume fraction] 34.2 % Low 37-47 [facility] Comment on above: Order Comment: DR MARCELO ORDERED RENAL, CBC, PTH, VITD, PROCRE URINE,DR MANUEL ORDERED CBC,CMP,LIPID,MIACREA URINE,A1C, Performed By: #### L 501.0900, L502.0250, L503.6030, L501.2300, L501.9985, L506.1000, L100.0500, L509.1000, L500.4050, L503.6550, L500.4100 ####[facility] [address] [place], [address] Hemoglobin (Bld) [Mass/Vol] 10.8 g/dL Low 12.0-15.0 [facility] Comment on above: Order Comment: DR MARCELO ORDERED RENAL, CBC, PTH, VITD, PROCRE URINE,DR MANUEL ORDERED CBC,CMP,LIPID,MIACREA URINE,A1C, Performed By: #### L 501.0900, L502.0250, L503.6030, L501.2300, L501.9985, L506.1000, L100.0500, L509.1000, L500.4050, L503.6550, L500.4100 ####[facility] [address] [place], [address] MCH (RBC) [Entitic mass] 30.4 pg Normal 27.0-32.0 [facility] Comment on above: Order Comment: DR MARCELO ORDERED RENAL, CBC, PTH, VITD, PROCRE URINE,DR MANUEL ORDERED CBC,CMP,LIPID,MIACREA URINE,A1C, Performed By: #### L 501.0900, L502.0250, L503.6030, L501.2300, L501.9985, L506.1000, L100.0500, L509.1000, L500.4050, L503.6550, L500.4100 ####[facility] [address] [place], [address] MCHC (RBC) [Mass/Vol] 31.6 g/dL Low 32-36 [facility] Comment on above: Order Comment: DR MARCELO ORDERED RENAL, CBC, PTH, VITD, PROCRE URINE,DR MANUEL ORDERED CBC,CMP,LIPID,MIACREA URINE,A1C, Performed By: #### L 501.0900, L502.0250, L503.6030, L501.2300, L501.9985, L506.1000, L100.0500, L509.1000, L500.4050, L503.6550, L500.4100 ####[facility] [address] [place], [address] MCV (RBC) [Entitic vol] 96.3 fL Normal 81-99 [facility] Comment on above: Order Comment: DR MARCELO ORDERED RENAL, CBC, PTH, VITD, PROCRE URINE,DR MANUEL ORDERED CBC,CMP,LIPID,MIACREA URINE,A1C, Performed By: #### L 501.0900, L502.0250, L503.6030, L501.2300, L501.9985, L506.1000, L100.0500, L509.1000, L500.4050, L503.6550, L500.4100 ####[facility] [address] [place], [address] Platelet mean volume (Bld) [Entitic vol] 9.1 fL Normal 6.2-12.0 [facility] Comment on above: Order Comment: DR MARCELO ORDERED RENAL, CBC, PTH, VITD, PROCRE URINE,DR MANUEL ORDERED CBC,CMP,LIPID,MIACREA URINE,A1C, Performed By: #### L 501.0900, L502.0250, L503.6030, L501.2300, L501.9985, L506.1000, L100.0500, L509.1000, L500.4050, L503.6550, L500.4100 ####[facility] [address] [place], [address] Platelets (Bld) [#/Vol] 210 10*3/uL Normal 150-450 [facility] Comment on above: Order Comment: DR MARCELO ORDERED RENAL, CBC, PTH, VITD, PROCRE URINE,DR MANUEL ORDERED CBC,CMP,LIPID,MIACREA URINE,A1C, Performed By: #### L 501.0900, L502.0250, L503.6030, L501.2300, L501.9985, L506.1000, L100.0500, L509.1000, L500.4050, L503.6550, L500.4100 ####[facility] [address] [place], [address] RBC (Bld) [#/Vol] 3.55 10*6/uL Low 4.2-5.4 [facility] Comment on above: Order Comment: DR MARCELO ORDERED RENAL, CBC, PTH, VITD, PROCRE URINE,DR MANUEL ORDERED CBC,CMP,LIPID,MIACREA URINE,A1C, Performed By: #### L 501.0900, L502.0250, L503.6030, L501.2300, L501.9985, L506.1000, L100.0500, L509.1000, L500.4050, L503.6550, L500.4100 ####[facility] [address] [place], [address] RDW SD 50.8 fl High 35.1-43.9 [facility] Comment on above: Order Comment: DR MARCELO ORDERED RENAL, CBC, PTH, VITD, PROCRE URINE,DR MANUEL ORDERED CBC,CMP,LIPID,MIACREA URINE,A1C, Performed By: #### L 501.0900, L502.0250, L503.6030, L501.2300, L501.9985, L506.1000, L100.0500, L509.1000, L500.4050, L503.6550, L500.4100 ####[facility] [address] [place], [address] WBC (Bld) [#/Vol] 7.9 10*3/uL Normal 4.4-11.0 [facility] Comment on above: Order Comment: DR MARCELO ORDERED RENAL, CBC, PTH, VITD, PROCRE URINE,DR MANUEL ORDERED CBC,CMP,LIPID,MIACREA URINE,A1C, Performed By: #### L 501.0900, L502.0250, L503.6030, L501.2300, L501.9985, L506.1000, L100.0500, L509.1000, L500.4050, L503.6550, L500.4100 ####[facility] [address] [place], [address] Rita 10-09-2023 CNPN Telephone (INTMWS) -------- GEORGINAVAL ([id number]) 1945 F Date Time Provider Department 10/09/23 NEEL TURPIN INTMWS During your visit today, we recorded the following information about you: Erika Barahona RN 10/09/2023 2:05 PM Signed DANNY Munguia @ [facility] calling with request for order to extend PT. Physical Therapy will see patient 1 x/week for four more weeks for gait, mobility and balance. If agree, may leave message on #[phone]. SYLVAIN Brice Victor H, MD 10/10/2023 9:56 [...] Date Reviewed: 09/23/2023 Reviewed by: Kacy Mary, TIRE REPAIRMAN.TECHNICAL STAFF ENGINEER - Fully Assessed Reason for Visit: PT Order [Other] Prescriptions as of 10/10/2023 - venlafaxine ER (EFFEXOR XR) 75 mg 24 hr capsule Take 1 capsule by mouth once daily. - gabapentin (NEURONTIN) 300 mg capsule Take 1 capsule by mouth two times a day for 180 days. - empagliflozin (JARDIANCE) 10 mg tablet Take 1 tablet by mouth once daily. Prescribed by inspector fabric - insulin glargine (LANTUS SOLOSTAR U-100 INSULIN) [...] Per Dr. Yulia Antoine, cardiology. - Insulin [place], Disposable, 29 gauge x 1/2 Use once daily as directed. Dx E11.29 - wgovwzpvjkk-xceashtyp-qy lanter (TRELEGY ELLIPTA) 100-62.5-25 mcg inhalation powder Inhale 1 Puff as instructed once daily. - docusate sodium (COLACE) 100 mg capsule Take 1 capsule by mouth as needed. - melatonin 5 mg tablet Take 2 tablets by mouth. - senna (SENOKOT) 8.6 mg tab Take 1 tablet by mouth as needed. - Vit C-Vit Q-Ruycqr-DmVb-Lutein (PRESERVISION LUTEIN) 226 mg-200 unit -5 mg-0.8 [...] every two weeks. - Lancets (FREESTYLE LANCETS) [facility] Test twice daily 250.02 Problem List As [...] thoracolumbar * (more content not included)... Normal [facility] Metabolic Prof ilon 10-09-2023 Albumin [Mass/Vol] 3.3 g/dL Normal 3.2-5.0 [facility] Comment on above: Order Comment: DR MARCELO ORDERED RENAL, CBC, PTH, VITD, PROCRE URINE,DR MANUEL ORDERED CBC,CMP,LIPID,MIACREA URINE,A1C, Performed By: #### L 501.0900, L502.0250, L503.6030, L501.2300, L501.9985, L506.1000, L100.0500, L509.1000, L500.4050, L503.6550, L500.4100 ####[facility] [address] [place], [address] Albumin/Globulin [Mass ratio] 0.9 {ratio} Normal 0.9-2.4 [facility] Comment on above: Order Comment: DR MARCELO ORDERED RENAL, CBC, PTH, VITD, PROCRE URINE,DR MANUEL ORDERED CBC,CMP,LIPID,MIACREA URINE,A1C, Performed By: #### L 501.0900, L502.0250, L503.6030, L501.2300, L501.9985, L506.1000, L100.0500, L509.1000, L500.4050, L503.6550, L500.4100 ####[facility] [address] [place], [address] ALK P 84 U/L Normal 45-117 [facility] Comment on above: Order Comment: DR MARCELO ORDERED RENAL, CBC, PTH, VITD, PROCRE URINE,DR MANUEL ORDERED CBC,CMP,LIPID,MIACREA URINE,A1C, Performed By: #### L 501.0900, L502.0250, L503.6030, L501.2300, L501.9985, L506.1000, L100.0500, L509.1000, L500.4050, L503.6550, L500.4100 ####[facility] [address] [place], [address] ALT [Catalytic activity/Vol] 40 U/L Normal 13-56 [facility] Comment on above: Order Comment: DR MARCELO ORDERED RENAL, CBC, PTH, VITD, PROCRE URINE,DR MANUEL ORDERED CBC,CMP,LIPID,MIACREA URINE,A1C, Performed By: #### L 501.0900, L502.0250, L503.6030, L501.2300, L501.9985, L506.1000, L100.0500, L509.1000, L500.4050, L503.6550, L500.4100 ####[facility] [address] [place], [address] AST [Catalytic activity/Vol] 23 U/L Normal 15-37 [facility] Comment on above: Order Comment: DR MARCELO ORDERED RENAL, CBC, PTH, VITD, PROCRE URINE,DR MANUEL ORDERED CBC,CMP,LIPID,MIACREA URINE,A1C, Performed By: #### L 501.0900, L502.0250, L503.6030, L501.2300, L501.9985, L506.1000, L100.0500, L509.1000, L500.4050, L503.6550, L500.4100 ####[facility] [address] [place], [address] Bilirubin [Mass/Vol] 0.30 mg/dL Normal 0.20-1.00 [facility] Comment on above: Order Comment: DR MARCELO ORDERED RENAL, CBC, PTH, VITD, PROCRE URINE,DR MANUEL ORDERED CBC,CMP,LIPID,MIACREA URINE,A1C, Result Comment: For patients on eltrombopag therapy, use of Dimension [place] TBIL is not recommended. Performed By: #### L 501.0900, L502.0250, L503.6030, L501.2300, L501.9985, L506.1000, L100.0500, L509.1000, L500.4050, L503.6550, L500.4100 ####[facility] [address] [place], [address] BUN/CRE 18.9 RATIO Normal 10-20 [facility] Comment on above: Order Comment: DR MARCELO ORDERED RENAL, CBC, PTH, VITD, PROCRE URINE,DR MANUEL ORDERED CBC,CMP,LIPID,MIACREA URINE,A1C, Performed By: #### L 501.0900, L502.0250, L503.6030, L501.2300, L501.9985, L506.1000, L100.0500, L509.1000, L500.4050, L503.6550, L500.4100 ####[facility] [address] [place], [address] CA,Total 9.4 mg/dL Normal 8.5-10.1 [facility] Comment on above: Order Comment: DR MARCELO ORDERED RENAL, CBC, PTH, VITD, PROCRE URINE,DR MANUEL ORDERED CBC,CMP,LIPID,MIACREA URINE,A1C, Performed By: #### L 501.0900, L502.0250, L503.6030, L501.2300, L501.9985, L506.1000, L100.0500, L509.1000, L500.4050, L503.6550, L500.4100 ####[facility] [address] [place], [address] Chloride [Moles/Vol] 105 mmol/L Normal 98-107 [facility] Comment on above: Order Comment: DR MARCELO ORDERED RENAL, CBC, PTH, VITD, PROCRE URINE,DR MANUEL ORDERED CBC,CMP,LIPID,MIACREA URINE,A1C, Performed By: #### L 501.0900, L502.0250, L503.6030, L501.2300, L501.9985, L506.1000, L100.0500, L509.1000, L500.4050, L503.6550, L500.4100 ####[facility] [address] [place], [address] CO2 [Moles/Vol] 26.0 mmol/L Normal 21.0-32.0 [facility] Comment on above: Order Comment: DR MARCELO ORDERED RENAL, CBC, PTH, VITD, PROCRE URINE,DR MANUEL ORDERED CBC,CMP,LIPID,MIACREA URINE,A1C, Performed By: #### L 501.0900, L502.0250, L503.6030, L501.2300, L501.9985, L506.1000, L100.0500, L509.1000, L500.4050, L503.6550, L500.4100 ####[facility] [address] [place], [address] Creatinine [Mass/Vol] 2.44 mg/dL High 0.55-1.02 [facility] Comment on above: Order Comment: DR MARCELO ORDERED RENAL, CBC, PTH, VITD, PROCRE URINE,DR MANUEL ORDERED CBC,CMP,LIPID,MIACREA URINE,A1C, Result Comment: The validity of the calculated GFR GFRAA in patients over70 years has not been determined. Clinical correlation isessential. Performed By: #### L 501.0900, L502.0250, L503.6030, L501.2300, L501.9985, L506.1000, L100.0500, L509.1000, L500.4050, L503.6550, L500.4100 ####[facility] [address] [place], [address] EST GFR - AA 25 mL/min Low >60 [facility] Comment on above: Order Comment: DR MARCELO ORDERED RENAL, CBC, PTH, VITD, PROCRE URINE,DR MANUEL ORDERED CBC,CMP,LIPID,MIACREA URINE,A1C, Result Comment: Afri can [place] GFR Calc Performed By: #### L 501.0900, L502.0250, L503.6030, L501.2300, L501.9985, L506.1000, L100.0500, L509.1000, L500.4050, L503.6550, L500.4100 ####[facility] [address] [place], [address] GAP 8 Normal 5-15 [facility] Comment on above: Order Comment: DR MARCELO ORDERED RENAL, CBC, PTH, VITD, PROCRE URINE,DR MANUEL ORDERED CBC,CMP,LIPID,MIACREA URINE,A1C, Performed By: #### L 501.0900, L502.0250, L503.6030, L501.2300, L501.9985, L506.1000, L100.0500, L509.1000, L500.4050, L503.6550, L500.4100 ####[facility] [address] [place], [address] GFR/1.73 sq M.predicted among non-blacks MDRD (S/P/Bld) [Vol rate/Area] 20 mL/min/{1.73_m2} Low >60 [facility] Comment on above: Order Comment: DR MARCELO ORDERED RENAL, CBC, PTH, VITD, PROCRE URINE,DR MANUEL ORDERED CBC,CMP,LIPID,MIACREA URINE,A1C, Result Comment: Non- GFR Calc Performed By: #### L 501.0900, L502.0250, L503.6030, L501.2300, L501.9985, L506.1000, L100.0500, L509.1000, L500.4050, L503.6550, L500.4100 ####[facility] [address] [place], [address] Globulin (S) [Mass/Vol] 3.5 g/dL Normal 2.2-4.2 [facility] Comment on above: Order Comment: DR MARCELO ORDERED RENAL, CBC, PTH, VITD, PROCRE URINE,DR MANUEL ORDERED CBC,CMP,LIPID,MIACREA URINE,A1C, Performed By: #### L 501.0900, L502.0250, L503.6030, L501.2300, L501.9985, L506.1000, L100.0500, L509.1000, L500.4050, L503.6550, L500.4100 ####[facility] [address] [place], [address] Glucose [Mass/Vol] 133 mg/dL High 74-106 [facility] Comment on above: Order Comment: DR MARCELO ORDERED RENAL, CBC, PTH, VITD, PROCRE URINE,DR MANUEL ORDERED CBC,CMP,LIPID,MIACREA URINE,A1C, Result Comment: Fast ing Glucose result greater than or equal to 126 mg/dLsuggests DIABETES MELLITUS per A.D.A. criteria. Performed By: #### L 501.0900, L502.0250, L503.6030, L501.2300, L501.9985, L506.1000, L100.0500, L509.1000, L500.4050, L503.6550, L500.4100 ####[facility] [address] [place], [address] Potassium [Moles/Vol] 4.7 mmol/L Normal 3.5-5.1 [facility] Comment on above: Order Comment: DR MARCELO ORDERED RENAL, CBC, PTH, VITD, PROCRE URINE,DR MANUEL ORDERED CBC,CMP,LIPID,MIACREA URINE,A1C, Performed By: #### L 501.0900, L502.0250, L503.6030, L501.2300, L501.9985, L506.1000, L100.0500, L509.1000, L500.4050, L503.6550, L500.4100 ####[facility] [address] [place], [address] Sodium [Moles/Vol] 139 mmol/L Normal 136-145 [facility] Comment on above: Order Comment: DR MARCELO ORDERED RENAL, CBC, PTH, VITD, PROCRE URINE,DR MANUEL ORDERED CBC,CMP,LIPID,MIACREA URINE,A1C, Performed By: #### L 501.0900, L502.0250, L503.6030, L501.2300, L501.9985, L506.1000, L100.0500, L509.1000, L500.4050, L503.6550, L500.4100 ####[facility] [address] [place], [address] T PROT 6.8 g/dL Normal 6.4-8.2 [facility] Comment on above: Order Comment: DR MARCELO ORDERED RENAL, CBC, PTH, VITD, PROCRE URINE,DR MANUEL ORDERED CBC,CMP,LIPID,MIACREA URINE,A1C, Performed By: #### L 501.0900, L502.0250, L503.6030, L501.2300, L501.9985, L506.1000, L100.0500, L509.1000, L500.4050, L503.6550, L500.4100 ####[facility] [address] [place], [address] Urea nitrogen [Mass/Vol] 46 mg/dL High 7-18 [facility] Comment on above: Order Comment: DR MARCELO ORDERED RENAL, CBC, PTH, VITD, PROCRE URINE,DR MANUEL ORDERED CBC,CMP,LIPID,MIACREA URINE,A1C, Performed By: #### L 501.0900, L502.0250, L503.6030, L501.2300, L501.9985, L506.1000, L100.0500, L509.1000, L500.4050, L503.6550, L500.4100 ####[facility] [address] [place], [address] Ferritinon 10-09-2023 Ferritin [Mass/Vol] 60 ng/mL Normal 8-252 [facility] Comment on above: Order Comment: DR MARCELO ORDERED RENAL, CBC, PTH, VITD, PROCRE URINE,DR MANUEL ORDERED CBC,CMP,LIPID,MIACREA URINE,A1C, Performed By: #### L 501.0900, L502.0250, L503.6030, L501.2300, L501.9985, L506.1000, L100.0500, L509.1000, L500.4050, L503.6550, L500.4100 ####[facility] [address] [place], [address] Hemoglobin A1con 10-09-2023 HbA1c (Bld) [Mass fraction] 7.0 % High 3.8-5.6 [facility] Comment on above: Order Comment: DR MARCELO ORDERED RENAL, CBC, PTH, VITD, PROCRE URINE,DR MANUEL ORDERED CBC,CMP,LIPID,MIACREA URINE,A1C, Result Comment: Norm al < 5.7 % Prediabetic 5.7 - 6.4 % Diabetic >or= 6.5 % Please note range changes. Performed By: #### L 501.0900, L502.0250, L503.6030, L501.2300, L501.9985, L506.1000, L100.0500, L509.1000, L500.4050, L503.6550, L500.4100 ####[facility] [address] [place], [address] Iron+Iron Binding Capacityon 10-09-2023 Iron [Mass/Vol] 75 ug/dL Normal 50-170 [facility] Comment on above: Order Comment: DR MARCELO ORDERED RENAL, CBC, PTH, VITD, PROCRE URINE,DR MANUEL ORDERED CBC,CMP,LIPID,MIACREA URINE,A1C, Performed By: #### L 501.0900, L502.0250, L503.6030, L501.2300, L501.9985, L506.1000, L100.0500, L509.1000, L500.4050, L503.6550, L500.4100 ####[facility] [address] [place], [address] IRON SATURATION 24.5 Normal 15.0-55.0 [facility] Comment on above: Order Comment: DR MARCELO ORDERED RENAL, CBC, PTH, VITD, PROCRE URINE,DR MANUEL ORDERED CBC,CMP,LIPID,MIACREA URINE,A1C, Performed By: #### L 501.0900, L502.0250, L503.6030, L501.2300, L501.9985, L506.1000, L100.0500, L509.1000, L500.4050, L503.6550, L500.4100 ####[facility] [address] [place], [address] TIBC 306 ug/dL Normal 250-450 [facility] Comment on above: Order Comment: DR MARCELO ORDERED RENAL, CBC, PTH, VITD, PROCRE URINE,DR MANUEL ORDERED CBC,CMP,LIPID,MIACREA URINE,A1C, Performed By: #### L 501.0900, L502.0250, L503.6030, L501.2300, L501.9985, L506.1000, L100.0500, L509.1000, L500.4050, L503.6550, L500.4100 ####[facility] [address] [place], [address] Lipid Profileon 10-09-2023 Cholesterol [Mass/Vol] 94 mg/dL Normal 200 [facility] Comment on above: Order Comment: DR MARCELO ORDERED RENAL, CBC, PTH, VITD, PROCRE URINE,DR MANUEL ORDERED CBC,CMP,LIPID,MIACREA URINE,A1C, Result Comment: <200 mg/dL Desirable 200-240 mg/dL Borderline >240 mg/dL High Risk Performed By: #### L 501.0900, L502.0250, L503.6030, L501.2300, L501.9985, L506.1000, L100.0500, L509.1000, L500.4050, L503.6550, L500.4100 ####[facility] [address] [place], [address] Cholesterol in HDL [Mass/Vol] 42 mg/dL Normal [facility] Comment on above: Order Comment: DR MARCELO ORDERED RENAL, CBC, PTH, VITD, PROCRE URINE,DR MANUEL ORDERED CBC,CMP,LIPID,MIACREA URINE,A1C, Result Comment: The drugs N-Acetylcysteine and Metamizole may falselydepress this assay. Reference Range HDL <40 mg/dL Low HDL Cholesterol HDL >or= 60 mg/dL High HDL Cholesterol Performed By: #### L 501.0900, L502.0250, L503.6030, L501.2300, L501.9985, L506.1000, L100.0500, L509.1000, L500.4050, L503.6550, L500.4100 ####[facility] [address] [place], [address] Cholesterol in LDL [Mass/Vol] 23 mg/dL Normal 0-130 [facility] Comment on above: Order Comment: DR MARCELO ORDERED RENAL, CBC, PTH, VITD, PROCRE URINE,DR MANUEL ORDERED CBC,CMP,LIPID,MIACREA URINE,A1C, Performed By: #### L 501.0900, L502.0250, L503.6030, L501.2300, L501.9985, L506.1000, L100.0500, L509.1000, L500.4050, L503.6550, L500.4100 ####[facility] [address] [place], [address] Cholesterol in VLDL [Mass/Vol] 29 mg/dL Normal 5-40 [facility] Comment on above: Order Comment: DR MARCELO ORDERED RENAL, CBC, PTH, VITD, PROCRE URINE,DR MANUEL ORDERED CBC,CMP,LIPID,MIACREA URINE,A1C, Performed By: #### L 501.0900, L502.0250, L503.6030, L501.2300, L501.9985, L506.1000, L100.0500, L509.1000, L500.4050, L503.6550, L500.4100 ####[facility] [address] [place], [address] Triglyceride [Mass/Vol] 144 mg/dL Normal [facility] Comment on above: Order Comment: DR [...] L501.9985, L506.1000, L100.0500, L509.1000, L500.4050, L503.6550, L500.4100 ####[facility] [address] [place], [address] Microalb:Creat Ratio,Random URon 10-09-2023 MALB:CRE 187.8 mg/g CRE High <30 mg/g CRE [facility] Comment on above: Order Comment: DR MARCELO ORDERED RENAL, CBC, PTH, VITD, PROCRE URINE,DR MANUEL ORDERED CBC,CMP,LIPID,MIACREA URINE,A1C, Performed By: #### L 501.0900, L502.0250, L503.6030, L501.2300, L501.9985, L506.1000, L100.0500, L509.1000, L500.4050, L503.6550, L500.4100 ####[facility] [address] [place], [address] MICROALBUMIN,UR 55.4 mg/L Normal NO RANGE EST. [facility] Comment on above: Order Comment: DR MARCELO ORDERED RENAL, CBC, PTH, VITD, PROCRE URINE,DR MANUEL ORDERED CBC,CMP,LIPID,MIACREA URINE,A1C, Performed By: #### L 501.0900, L502.0250, L503.6030, L501.2300, L501.9985, L506.1000, L100.0500, L509.1000, L500.4050, L503.6550, L500.4100 ####[facility] [address] [place], [address] PTHINon 10-09-2023 PTH 62.9 pg/mL Normal 18.4-80.1 [facility] Comment on above: Order Comment: DR MARCELO ORDERED RENAL, CBC, PTH, VITD, PROCRE URINE,DR MANUEL ORDERED CBC,CMP,LIPID,MIACREA URINE,A1C, Performed By: #### L 501.0900, L502.0250, L503.6030, L501.2300, L501.9985, L506.1000, L100.0500, L509.1000, L500.4050, L503.6550, L500.4100 ####[facility] [address] [place], [address] Phosphoruson 10-09-2023 Phosphate [Mass/Vol] 3.5 mg/dL Normal 2.5-4.9 [facility] Comment on above: Order Comment: DR MARCELO ORDERED RENAL, CBC, PTH, VITD, PROCRE URINE,DR MANUEL ORDERED CBC,CMP,LIPID,MIACREA URINE,A1C, Performed By: #### L 501.0900, L502.0250, L503.6030, L501.2300, L501.9985, L506.1000, L100.0500, L509.1000, L500.4050, L503.6550, L500.4100 ####[facility] [address] [place], [address] Protein+Creatinine Ratio,Uri neon 10-09-2023 PROT:CRE RATIO 725 mg/g CRE High 0-200 [facility] Comment on above: Order Comment: DR MARCELO ORDERED RENAL, CBC, PTH, VITD, PROCRE URINE,DR MANUEL ORDERED CBC,CMP,LIPID,MIACREA URINE,A1C, Performed By: #### L 501.0900, L502.0250, L503.6030, L501.2300, L501.9985, L506.1000, L100.0500, L509.1000, L500.4050, L503.6550, L500.4100 ####[facility] [address] [place], [address] Protein (U) [Mass/Vol] 21.4 mg/dL High <11.9 [facility] Comment on above: Order Comment: DR MARCELO ORDERED RENAL, CBC, PTH, VITD, PROCRE URINE,DR MANUEL ORDERED CBC,CMP,LIPID,MIACREA URINE,A1C, Performed By: #### L 501.0900, L502.0250, L503.6030, L501.2300, L501.9985, L506.1000, L100.0500, L509.1000, L500.4050, L503.6550, L500.4100 ####[facility] [address] [place], [address] UR CREAT 29.50 mg/dL Normal NO RANGE EST. [facility] Comment on above: Order Comment: DR MARCELO ORDERED RENAL, CBC, PTH, VITD, PROCRE URINE,DR MANUEL ORDERED CBC,CMP,LIPID,MIACREA URINE,A1C, Performed By: #### L 501.0900, L502.0250, L503.6030, L501.2300, L501.9985, L506.1000, L100.0500, L509.1000, L500.4050, L503.6550, L500.4100 ####[facility] [address] [place], [address] Vitamin D,25 Hydroxyon 10-08 Vitamin D 25-OH 33.2 ng/mL Normal [facility] Comment on above: Order Comment: DR [...] L501.9985, L506.1000, L100.0500, L509.1000, L500.4050, L503.6550, L500.4100 ####[facility] [address] [place], [address] CNOVon 09-23-2023 CNOV Office Visit (INTMWS ) -------- VAL ERICKSON ([id number]) 1945 F Date Time Provider Department 09/23/23 9:00 AM KACY MARY INTMWS During your visit today, we recorded the following information about you: Pulse Respiration Blood pressure 87/minute 18/minute 118/78 Kacy Mary, TIRE REPAIRMAN.TECHNICAL STAFF ENGINEER 09/23/2023 10:14 AM Aric Gordon Georgina is [...] Turpin MD as PCP - Tessa Blakely [facility] as Pharmacist (Pharmacy) [facility] ophthalmology Outside specialists seen: Renal-Dr. Louise, Cardiology-Dr. Wayne, Podiatry-Dr. Hicks ([facility]), transportation director- Dr. Walter Medical/Family history review Reviewed and [...] Home blood sugar readings: fasting typically in [id number]'s Hypoglycemia: No She is compliant with medication(s) [...] - Instructed patient to contact office or ilgrh-wa-fvac after-hours pr (more content not included)... Normal [facility] Rita 09-23-2023 JERRYN Telephone (INTMWS) -------- GEORGINAVAL ([id number]) 1945 F Date Time Provider Department 09/23/23 KACY MARY During your visit today, we recorded the following information about you: Ritu Pablo MA 09/23/2023 11:09 AM Signed ----- Message from Kacy Mary APRN.TECHNICAL STAFF ENGINEER sent at 09/23/2023 11:03 AM EDT ----- Please let the patient know the x-ray was negative for fracture. Call office in 2 weeks if pain does not improve or sooner if any worsening Kacy Mary APRN.TECHNICAL STAFF ENGINEER Ritu Pablo MA 09/23/2023 11:11 AM Signed Left detailed message on kapturem. Allergies As of Date: 09/23/2023 Noted Allergy Reaction RYBELSUS (SEMAGLUTIDE) 07/10/2023 5 - Intolerance Comments: Uncontrollable indigestion LEVAQUIN (LEVOFLOXACIN) 12/29/2004 Comments: itching,diarrhea,dausea, burning skin SEASONAL ALLERGIES 08/19/2014 14 - Other: See Comments Comments: Sinus SULFA (SULFONAMIDE ANTIBIOTICS) 12/29/2004 Comments: rash and hives Date Reviewed: 09/23/2023 Reviewed by: Kacy Mary APRN.TECHNICAL STAFF ENGINEER - Fully Assessed Reason for Visit: Results [95] Prescriptions as of 09/23/2023 - venlafaxine ER (EFFEXOR XR) 75 mg 24 hr capsule Take 1 capsule by mouth once daily. - gabapentin (NEURONTIN) 300 mg capsule Take 1 capsule by mouth two times a day for 180 days. - empagliflozin (JARDIANCE) 10 mg tablet Take 1 tablet by mouth once daily. Prescribed by inspector fabric - insulin glargine (LANTUS SOLOSTAR U-100 INSULIN) [...] Per Dr. Yulia Antoine, cardiology. - Insulin [place], Disposable, 29 gauge x 1/2 Use once daily as directed. Dx E11.29 - aqdvxbsdzxf-xjeblsjlj-rd lanter (TRELEGY ELLIPTA) 100-62.5-25 mcg inhalation powder Inhale 1 Puff as instructed once daily. - docusate sodium (COLACE) 100 mg capsule Take 1 capsule by mouth as needed. - melatonin 5 mg tablet Take 2 tablets by mouth. - senna (SENOKOT) 8.6 mg tab Take 1 tablet by mouth as needed. - Vit C-Vit Y-Kuawia-XmRu-Lutein (PRESERVISION LUTEIN) 226 mg-200 unit -5 mg-0.8 [...] without com*10/24/201708/17 (more content not included)... Normal [facility] HEMOGLOBIN A1C (POC)on 09-22 HbA1c (Bld) [Mass fraction] 7.0 % Abnormal 4.3 - 5.6 % [facility] Comment on above: Location:[facility], [facility], [place], [address] Point of care (POC) Hemoglobin A1c (HGBA1C) [...] specific diabetes management situations: The POC device tool clerk provides a normal range of 4.2% to 6.5% for the HGBA1C POC test. However, the [place] [employer] guidelines indicate that patients with [...] Interpretation and review of laboratory results Abnormal [facility] XR HIP 3V PELV+ AP/LAT RTon 09-23-2023 [...] advanced imaging to exclude radiographically occult fracture. Dial Polisher: ABBEY Transcribe Date/Time: Sep 23 2023 10:55A Dictated by : YAMIL STARR MD This examination was interpreted and the report reviewed and electronically signed by: YAMIL STARR MD on Sep 23 2023 11:00AM EST [id number] Normal [facility] XR Pelvis and Hip - right AP and Lateral frogon 09-23-2023 IMPRESSION: No radiographic evidence of acute osseous injury. If there is persistent pain or if the patient is unable to bear weight, consider advanced imaging to exclude radiographically occult fracture. Dial Polisher: ABBEY Transcribe Date/Time: Sep 23 2023 10:55A [...] of the vasculature. DIVISION OF RADIOLOGY Provider, [facility] - 09/23/2023 * * *Final Report* * [...] advanced imaging to exclude radiographically occult fracture. Dial Polisher: PSCB Transcribe Date/Time: Sep 23 2023 10:55A Dictated by : YAMIL STARR MD This examination was interpreted and the report reviewed and electronically signed by: YAMIL STARR MD on Sep 23 2023 11:00AM EST [facility] Radiology Study observation (narrative) [facility] XR Pelvis and Hip - right AP and Lateral frogOrdered By: Ccf Provider on 09-23-2023 [facility] Basic metabolic 2000 panelon 09-11-2023 Anion gap [Moles/Vol] 13 mmol/L 10 - 2 0 mmol/L [facility] Calcium [Mass/Vol] 9.2 mg/dL 8.6 - 10. 3 mg/dL [facility] Chloride [Moles/Vol] 101 mmol/L 98 - 10 7 mmol/L [facility] CO2 [Moles/Vol] 25 mmol/L 21 - 32 mmol/L [facility] Creatinine [Mass/Vol] 2.02 mg/dL High 0.50 - 1.05 mg/dL [facility] GFR/1.73 sq M.predicted among non-blacks MDRD (S/P/Bld) [Vol rate/Area] 25 mL/min/{1.73_m2} Low - PINF [facility] Comment on above: Calculations of te mated GFR are performed using the 2020 CKD-EPI Study Refit equation without the race variable for the IDMS-Traceable creatinine methods. https://jasn.asnjournals.org/content//ASN.698441 9504 Glucose [Mass/Vol] 121 mg/dL High 74 - 99 mg/dL [facility] Interpretation and review of laboratory results Abnormal [facility] Potassium [Moles/Vol] 4.5 mmol/L 3.5 - 5.3 mmol/L [facility] Sodium [Moles/Vol] 134 mmol/L Low 136 - 145 mmol/L [facility] Urea nitrogen [Mass/Vol] 43 mg/dL High 6 - 23 mg/dL [facility] Anion gap [Moles/Vol] 13 mmol/L Normal 10-[address] [facility] Comment on above: Performed By: #### 8 9577-1 #### AKOSUA SEGOVIA ([id number]) [facility] ([facility]) [address] [place] [address] Calcium [Mass/Vol] 9.2 mg/dL Normal 8.6-10.3 [facility] Comment on above: Performed By: #### 8 9577-1 #### AKOSUA SEGOVIA ([id number]) [facility] ([facility]) [address] [place] [address] Chloride [Moles/Vol] 101 mmol/L Normal 98-107 [facility] Comment on above: Performed By: #### 8 9577-1 #### AKOSUA SEGOVIA ([id number]) [facility] ([facility]) [address] [place] [address] CO2 [Moles/Vol] 25 mmol/L Normal 21-32 [facility] Comment on above: Performed By: #### 8 9577-1 #### AKOSUA SEGOVIA ([id number]) [facility] ([facility]) [facility] [place] [address] Creatinine [Mass/Vol] 2.02 mg/dL High 0.50-1.05 [facility] Comment on above: Performed By: #### 8 9577-1 #### AKOSUA SEGOVIA ([id number]) [facility] ([facility]) [facility] [place] [address] Glomerular filtration rate/1.73 sq M.predicted 25 mL/min/1.73m*2 Low >60 [facility] Comment on above: Result Comment: Calc ulations of estimated GFR are performed using the 2020 CKD-EPI Study Refit equation without the race variable for the IDMS-Traceable creatinine methods. https://jasn.asnjournals.org/content/early/ASN.467040 8580 Performed By: #### 8 9577-1 #### AKOSUA SEGOVIA ([id number]) [facility] ([facility]) [facility] [place] [address] Glucose [Mass/Vol] 121 mg/dL High 74-99 [facility] Comment on above: Performed By: #### 8 9577-1 #### AKOSUA SEGOVIA ([id number]) [facility] ([facility]) [address] [place] [address] Potassium [Moles/Vol] 4.5 mmol/L Normal 3.5-5.3 [facility] Comment on above: Performed By: #### 8 9577-1 #### AKOSUA SEGOVIA ([id number]) [facility] ([facility]) [address] [place] [address] Sodium [Moles/Vol] 134 mmol/L Low 136-145 [facility] Comment on above: Performed By: #### 8 9577-1 #### AKOSUA SEGOVIA ([id number]) [facility] ([facility]) [address] [place] [address] Urea nitrogen [Mass/Vol] 43 mg/dL High 6-23 [facility] Comment on above: Performed By: #### 8 9577-1 #### AKOSUA SEGOVIA ([id number]) [facility] ([facility]) [address] [place] [address] Glucose Test strip manual (B ld) [Mass/Vol]on 09-11-2023 Glucose [Mass/Vol] 187 mg/dL High 74 - 99 mg/dL [facility] Interpretation and review of laboratory results Abnormal [facility] Glucose [Mass/Vol] 187 mg/dL High 74-99 [facility] Comment on above: Performed By: #### 8 9577-1 #### AKOSUA SEGOVIA ([id number]) [facility] ([facility]) [address] [place] [address] Glucose [Mass/Vol] 93 mg/dL 74 - 99 mg/dL [facility] Interpretation and review of laboratory results Normal [facility] Glucose [Mass/Vol] 93 mg/dL Normal 74-99 [facility] Comment on above: Performed By: #### 8 9577-1 #### AKOSUA SEGOVIA ([id number]) [facility] ([facility]) [address] [place] [address] [place] Topon 09-11-2023 Extra Tube Hold for add-ons. [facility] Comment on above: Auto resulted. [facility] [place] LUNG PERFUSION WITH SPECT /CTon 09-11-2023 [...] PM -------- ORIGINAL REPORT -------- Dictation workstation: [id number] Interpreted By: Paula Paredes, STUDY: [place] LUNG PERFUSION; 09/10/2023 7:49 am INDICATION: Signs/Symptoms:chest pain. COMPARISON: None. ACCESSION NUMBER(S): [id number] ORDERING CLINICIAN: MONSERRAT PRINCE TECHNIQUE: DIVISION OF [...] acute pulmonary embolism. Images were interpreted at [facility]. Signed by: Paula Paredes 09/10/2023 7:54 AM Dictation workstation: [id number] Normal [facility] Basic metabolic 2000 panelon 09-10-2023 Anion gap [Moles/Vol] 12 mmol/L 10 - 2 0 mmol/L [facility] Calcium [Mass/Vol] 8.8 mg/dL 8.6 - 10. 3 mg/dL [facility] Chloride [Moles/Vol] 103 mmol/L 98 - 10 7 mmol/L [facility] CO2 [Moles/Vol] 27 mmol/L 21 - 32 mmol/L [facility] Creatinine [Mass/Vol] 2.42 mg/dL High 0.50 - 1.05 mg/dL [facility] GFR/1.73 sq M.predicted among non-blacks MDRD (S/P/Bld) [Vol rate/Area] 20 mL/min/{1.73_m2} Low - PINF [facility] Comment on above: Calculations of te mated GFR are performed using the 2020 CKD-EPI Study Refit equation without the race variable for the IDMS-Traceable creatinine methods. https://jasn.asnjournals.org/content/early//ASN.388253 2798 Glucose [Mass/Vol] 110 mg/dL High 74 - 99 mg/dL [facility] Interpretation and review of laboratory results Abnormal [facility] Potassium [Moles/Vol] 4.5 mmol/L 3.5 - 5.3 mmol/L [facility] Sodium [Moles/Vol] 137 mmol/L 136 - 145 mmol/L [facility] Urea nitrogen [Mass/Vol] 46 mg/dL High 6 - 23 mg/dL [facility] Anion gap [Moles/Vol] 12 mmol/L Normal 10-20 [facility] Comment on above: Performed By: #### 2 4321-2 #### AKOSUA SEGOVIA ([id number]) [facility] ([facility]) [facility] [place] [address] Calcium [Mass/Vol] 8.8 mg/dL Normal 8.6-10.3 [facility] Comment on above: Performed By: #### 2 4321-2 #### AKOSUA SEGOVIA ([id number]) [facility] ([facility]) [address] [place] [address] Chloride [Moles/Vol] 103 mmol/L Normal 98-107 [facility] Comment on above: Performed By: #### 2 4321-2 #### AKOSUA SEGOVIA ([id number]) [facility] ([facility]) [address] [place] [address] CO2 [Moles/Vol] 27 mmol/L Normal 21-32 [facility] Comment on above: Performed By: #### 2 4321-2 #### AKOSUA SEGOVIA ([id number]) [facility] ([facility]) [address] [place] [address] Creatinine [Mass/Vol] 2.42 mg/dL High 0.50-1.05 [facility] Comment on above: Performed By: #### 2 4321-2 #### AKOSUA SEGOVIA ([id number]) [facility] ([facility]) [address] [place] [address] Glomerular filtration rate/1.73 sq M.predicted 20 mL/min/1.73m*2 Low >60 [facility] Comment on above: Result Comment: Calc ulations of estimated GFR are performed using the 2020 CKD-EPI Study Refit equation without the race variable for the IDMS-Traceable creatinine methods. https://jasn.asnjournals.org/content/early/ASN.754268 3602 Performed By: #### 2 4321-2 #### AKOSUA SEGOVIA ([id number]) [facility] ([facility]) [facility] [place] [address] Glucose [Mass/Vol] 110 mg/dL High 74-99 [facility] Comment on above: Performed By: #### 2 4321-2 #### AKOSUA SEGOVIA ([id number]) [facility] ([facility]) [address] [place] [address] Potassium [Moles/Vol] 4.5 mmol/L Normal 3.5-5.3 [facility] Comment on above: Performed By: #### 2 4321-2 #### AKOSUA SEGOVIA ([id number]) [facility] ([facility]) [facility] [place] [address] Sodium [Moles/Vol] 137 mmol/L Normal 136-145 [facility] Comment on above: Performed By: #### 2 4321-2 #### AKOSUA SEGOVIA ([id number]) [facility] ([facility]) [facility] [place] [address] Urea nitrogen [Mass/Vol] 46 mg/dL High 6-23 [facility] Comment on above: Performed By: #### 2 4321-2 #### AKOSUA SEGOVIA ([id number]) [facility] ([facility]) [address] [place] [address] CBC panel Auto (Bld)on 09-09 Erythrocyte distribution width (RBC) [Ratio] 14.0 % 11.5 - 14.5 % [facility] Hematocrit (Bld) [Volume fraction] 31.8 % Low 36.0 - 46.0 % [facility] Hemoglobin (Bld) [Mass/Vol] 9.5 g/dL Low 12.0 - 16.0 g/dL [facility] Interpretation and review of laboratory results Abnormal [facility] MCH (RBC) [Entitic mass] 30.8 pg 26.0 - 34.0 pg [facility] MCHC (RBC) [Mass/Vol] 29.9 g/dL Low 32.0 - 36.0 g/dL [facility] MCV (RBC) [Entitic vol] 103 fL High 80 - 100 fL [facility] Nucleated RBC/100 WBC (Bld) [Ratio] 0.0 % [facility] Platelets (Bld) [#/Vol] 188 10*3/uL [facility] RBC (Bld) [#/Vol] 3.08 10*6/uL Low [facility] WBC (Bld) [#/Vol] 8.0 10*3/uL [facility] Erythrocyte distribution width (RBC) [Ratio] 14.0 % Normal 11.5-14.5 [facility] Comment on above: Performed By: #### 2 4321-2 #### AKOSUA SEGOVIA ([id number]) [facility] ([facility]) [address] [place] [address] Hematocrit (Bld) [Volume fraction] 31.8 % Low 36.0-46.0 [facility] Comment on above: Performed By: #### 2 4321-2 #### AKOSUA SEGOVIA ([id number]) [facility] ([facility]) [address] [place] [address] Hemoglobin (Bld) [Mass/Vol] 9.5 g/dL Low 12.0-16.0 [facility] Comment on above: Performed By: #### 2 4321-2 #### AKOSUA SEGOVIA ([id number]) [facility] ([facility]) [address] [place] [address] MCH (RBC) [Entitic mass] 30.8 pg Normal 26.0-34.0 [facility] Comment on above: Performed By: #### 2 4321-2 #### AKOSUA SEGOVIA ([id number]) [facility] ([facility]) [address] [place] [address] MCHC (RBC) [Mass/Vol] 29.9 g/dL Low 32.0-36.0 [facility] Comment on above: Performed By: #### 2 4321-2 #### AKOSUA SEGOVIA ([id number]) [facility] ([facility]) [address] [place] [address] MCV (RBC) [Entitic vol] 103 fL High 80-100 [facility] Comment on above: Performed By: #### 2 4321-2 #### AKOSUA SEGOVIA ([id number]) [facility] ([facility]) [address] [place] [address] Nucleated RBC/100 WBC (Bld) [Ratio] 0.0 /100 WBCs Normal 0.0-0.0 [facility] Comment on above: Performed By: #### 2 4321-2 #### AKOSUA SEGOVIA ([id number]) [facility] ([facility]) [address] [place] [address] Platelets (Bld) [#/Vol] 188 x10*3/uL Normal 150-450 [facility] Comment on above: Performed By: #### 2 4321-2 #### AKOSUA SEGOVIA ([id number]) [facility] ([facility]) [address] [place] [address] RBC (Bld) [#/Vol] 3.08 x10*6/uL Low 4.00-5.20 [facility] Comment on above: Performed By: #### 2 4321-2 #### AKOSUA SEGOVIA ([id number]) [facility] ([facility]) [facility] [place] [address] WBC (Bld) [#/Vol] 8.0 x10*3/uL Normal 4.4-11.3 [facility] Comment on above: Performed By: #### 2 4321-2 #### AKOSUA SEGOVIA ([id number]) [facility] ([facility]) [facility] [place] [address] Cobalaminson 09-10-2023 Cobalamin (Vitamin B12) [Mass/Vol] 164 pg/mL Low 211-911 [facility] Comment on above: Performed By: #### 8 9577-1 #### AKOSUA SEGOVIA ([id number]) [facility] ([facility]) [address] [place] [address] Folateon 09-10-2023 Folate [Mass/Vol] 9.3 ng/mL 5.0 - PINF ng/mL [facility] Folate [Mass/Vol] 9.3 ng/mL Normal >5.0 [facility] Comment on above: Order Comment: Less [...] performed using a different testing methodology at [facility] than at other [facility]. Direct result comparisons should only be made within the same method. Performed By: #### 8 9577-1 #### AKOSUA SEGOVIA ([id number]) [facility] ([facility]) [address] [place], [place] [address] Folate [Mass/Vol]on 09-10-19 Interpretation and review of laboratory results Normal [facility] Low <3.4 Borderline 3.4-5.0 Normal >5.0 Patients receiving more than 5 mg/day of biotin may have interference in test results. A sample should be taken no sooner than eight hours after previous dose. Contact the testing laboratory for additional information. [facility] Glucose Test strip manual (B ld) [Mass/Vol]on 09-10-2023 Glucose [Mass/Vol] 282 mg/dL High 74 - 99 mg/dL [facility] Interpretation and review of laboratory results Abnormal [facility] Glucose [Mass/Vol] 282 mg/dL High 74-99 [facility] Comment on above: Performed By: #### 8 9577-1 #### AKOSUA SEGOVIA ([id number]) [facility] ([facility]) [address] [place] [address] Glucose [Mass/Vol] 163 mg/dL High 74 - 99 mg/dL [facility] Interpretation and review of laboratory results Abnormal [facility] Glucose [Mass/Vol] 163 mg/dL High 74-99 [facility] Comment on above: Performed By: #### 8 9577-1 #### AKOSUA SEGOVIA ([id number]) [facility] ([facility]) [address] [place] [address] Glucose [Mass/Vol] 184 mg/dL High 74 - 99 mg/dL [facility] Interpretation and review of laboratory results Abnormal [facility] Glucose [Mass/Vol] 184 mg/dL High 74-99 [facility] Comment on above: Performed By: #### 8 9577-1 #### AKOSUA SEGOVIA ([id number]) [facility] ([facility]) [address] [place] [address] Glucose [Mass/Vol] 96 mg/dL 74 - 99 mg/dL [facility] Interpretation and review of laboratory results Normal [facility] Glucose [Mass/Vol] 96 mg/dL Normal 74-99 [facility] Comment on above: Performed By: #### 2 4321-2 #### AKOSUA SEGOVIA ([id number]) [facility] ([facility]) [address] [place] [address] Glucose [Mass/Vol] 98 mg/dL 74 - 99 mg/dL [facility] Interpretation and review of laboratory results Normal [facility] Glucose [Mass/Vol] 98 mg/dL Normal 74-99 [facility] Comment on above: Performed By: #### 2 4321-2 #### AKOSUA SEGOVIA ([id number]) [facility] ([facility]) [address] [place] [address] Glucose [Mass/Vol] 117 mg/dL High 74 - 99 mg/dL [facility] Interpretation and review of laboratory results Abnormal [facility] Glucose [Mass/Vol] 117 mg/dL High 74-99 [facility] Comment on above: Performed By: #### 2 4321-2 #### AKOSUA SEGOVIA ([id number]) [facility] ([facility]) [address] [place], [place] [address] [place] Lung Perfusionon 09-10-19 24 Low probability of a cute pulmonary embolism. Images were interpreted at [facility]. Signed by: Paula Paredes 09/10/2023 7:54 AM Dictation workstation: [id number] Interpreted By: Paula Alcaraz, STUDY: [place] LUNG PERFUSION; 09/10/2023 7:49 am INDICATION: Signs/Symptoms:chest pain. COMPARISON: None. ACCESSION NUMBER(S): [id number] ORDERING CLINICIAN: MONSERRAT PRINCE TECHNIQUE: DIVISION OF [...] INDICATION: Signs/Symptoms:chest pain. COMPARISON: None. ACCESSION NUMBER(S): [id number] ORDERING CLINICIAN: MONSERRAT PRINCE TECHNIQUE: DIVISION OF [...] acute pulmonary embolism. Images were interpreted at [facility]. Signed by: Paula Paredes 09/10/2023 7:54 AM Dictation workstation: [id number] [facility] Work Phone: Radiology Study observation (narrative) [facility] Work Phone: [place] Lung PerfusionOrdered By: Paula Paredes on 09-10-2023 [facility] Work Phone: US.doppler Lower extremity v ein - bilateralon 09-10-2023 [place] [address] [phone], Vascular Lab Report VASC US LOWER EXTREMITY VENOUS DUPLEX BILATERAL Patient Name: VAL Dwyer Physician: [id number] Indu Sanchez MD Study Date: 09/09/2023 Ordering Provider: [id number] MONSERRAT PRINCE MRN/PID: [id number] Fellow: Technologist: Rosa Elena Pritchard RVGino/AB Date of /Age: 11 1945 / 78 years Technologist 2: Gender: F Admission Status: Inpatient Location Performed: [facility] Diagnosis/ICD: Localized (leg) edema-R60.0; Shortness of breath-R06.02 CPT Codes: 87792 Peripheral venous duplex scan for DVT complete [...] Distal Yes None Popliteal Yes None Spontaneous/Phasic [id number] Indu Sanchez MD Final SYNGO Indu Lazcano MD - 09/10/2023 [place] [address] [phone], Vascular Lab Report VASC US LOWER EXTREMITY VENOUS DUPLEX BILATERAL Patient Name: VAL Dwyer Physician: [id number] Indu Sanchez MD Study Date: 09/09/2023 Ordering Provider: [id number] MONSERRAT PRINCE MRN/PID: [id number] Fellow: Technologist: Rosa Elena Pritchard RVT/AB Date of /Age: 11 1945 / 78 years Technologist 2: Gender: F Admission Status: Inpatient Location Performed: [facility] Diagnosis/ICD: Localized (leg) edema-R60.0; Shortness of breath-R06.02 CPT Codes: 78158 Peripheral venous duplex scan for DVT complete [...] Distal Yes None Popliteal Yes None Spontaneous/Phasic 34313 Indu Sanchez MD Final [facility] Work Phone: US.doppler Lower extremity v ein - bilateralOrdered By: Indu Ngo on 09-10-2023 [facility] Work Phone: Basic metabolic 2000 panelon 09-09-2023 Anion gap [Moles/Vol] 13 mmol/L 10 - 2 0 mmol/L [facility] Calcium [Mass/Vol] 9.5 mg/dL 8.6 - 10. 3 mg/dL [facility] Chloride [Moles/Vol] 101 mmol/L 98 - 10 7 mmol/L [facility] CO2 [Moles/Vol] 28 mmol/L 21 - 32 mmol/L [facility] Creatinine [Mass/Vol] 2.21 mg/dL High 0.50 - 1.05 mg/dL [facility] GFR/1.73 sq M.predicted among non-blacks MDRD (S/P/Bld) [Vol rate/Area] 22 mL/min/{1.73_m2} Low - PINF [facility] Comment on above: Calculations of te mated GFR are performed using the 2020 CKD-EPI Study Refit equation without the race variable for the IDMS-Traceable creatinine methods. https://jasn.asnjournals.org/content//ASN.662549 8475 Glucose [Mass/Vol] 98 mg/dL 74 - 99 mg/dL [facility] Interpretation and review of laboratory results Abnormal [facility] Potassium [Moles/Vol] 4.2 mmol/L 3.5 - 5.3 mmol/L [facility] Sodium [Moles/Vol] 138 mmol/L 136 - 145 mmol/L [facility] Urea nitrogen [Mass/Vol] 43 mg/dL High 6 - 23 mg/dL [facility] Anion gap [Moles/Vol] 13 mmol/L Normal 10-20 [facility] Comment on above: Performed By: #### 2 4321-2 #### AKOSUA SEGOVIA ([id number]) [facility] ([facility]) [address] [place] [address] 86126 Calcium [Mass/Vol] 9.5 mg/dL Normal 8.6-10.3 [facility] Comment on above: Performed By: #### 2 4321-2 #### AKOSUA SEGOVIA ([id number]) [facility] ([facility]) [address] [place] [address] 92689 Chloride [Moles/Vol] 101 mmol/L Normal 98-107 [facility] Comment on above: Performed By: #### 2 4321-2 #### AKOSUA SEGOVIA ([id number]) [facility] ([facility]) [address] [place] [address] 96195 CO2 [Moles/Vol] 28 mmol/L Normal 21-32 [facility] Comment on above: Performed By: #### 2 4321-2 #### AKOSUA SEGOVIA ([id number]) [facility] ([facility]) [address] [place] [address] 69953 Creatinine [Mass/Vol] 2.21 mg/dL High 0.50-1.05 [facility] Comment on above: Performed By: #### 2 4321-2 #### AKOSUA SEGOVIA ([id number]) [facility] ([facility]) [address] [place] [address] 54496 Glomerular filtration rate/1.73 sq M.predicted 22 mL/min/1.73m*2 Low >60 [facility] Comment on above: Result Comment: Calc ulations of estimated GFR are performed using the 2020 CKD-EPI Study Refit equation without the race variable for the IDMS-Traceable creatinine methods. https://jasn.asnjournals.org/content//ASN.484677 9488 Performed By: #### 2 4321-2 #### AKOSUA SEGOVIA ([id number]) [facility] ([facility]) [address] [place] [address] 62737 Glucose [Mass/Vol] 98 mg/dL Normal 74-99 [facility] Comment on above: Performed By: #### 2 4321-2 #### AKOSUA SEGOVIA ([id number]) [facility] ([facility]) [address] [place] [address] 40905 Potassium [Moles/Vol] 4.2 mmol/L Normal 3.5-5.3 [facility] Comment on above: Performed By: #### 2 4321-2 #### AKOSUA SEGOVIA ([id number]) [facility] ([facility]) [address] [place] [address] 01803 Sodium [Moles/Vol] 138 mmol/L Normal 136-145 [facility] Comment on above: Performed By: #### 2 4321-2 #### AKOSUA SEGOVIA ([id number]) [facility] ([facility]) [address] [place] [address] 68801 Urea nitrogen [Mass/Vol] 43 mg/dL High 6-23 [facility] Comment on above: Performed By: #### 2 4321-2 #### AKOSUA SEGOVIA ([id number]) [facility] ([facility]) [address] [place] [address] 04211 CARDIAC CATHETERIZATION PROC Doni 09-09-[address] [facility] [address] [place] [address] [phone], Cardiovascular Catheterization Report Patient Name: VAL E GEORGINA Performing Physician: [id number] Lucio MD Study Date: 09/09/2023 Verifying Physician: David Lucio MD MRN/PID: [id number] [employer] Hand/Co-Scrub: Ordering Provider: [id number] MONSERRAT Ankur NIKI Date of /Age: 11 1945 / 78 years [employer]stabout Hand: Gender: F Fellow: Surgeon: Study: Right and Left Heart Cath Indications: VAL ERICKSON is a 79 year old female who presents with hypertension, diabetes, dyslipidemia and a chest pain assessment of typical angina. Cardiomyopathy. Heart failure. Cardiac arrest: No. Procedure Description: After infiltration with 2% Lidocaine, the right radial artery was cannulated with a modified Seldinger technique. Subsequently a 5 Indian sheath was placed in the right radial artery. Selective coronary catheterization was performed using a 5 Fr catheter(s) exchanged over a guide wire to cannulate the coronary arteries. A 5 Fr Clay catheter was used for left and right [...] Codes: Right & Left Heart Cath w/ventriculography (RHC)([facility])-13139; Moderate Sedation Services initial 15 minutes patient >5 years-84052; Moderate Sedation Services 1st additional 15 minutes patient >5 years-75763 [id number] Cesar Lucio MD Performing Physician Final Normal [facility] CBC W Auto Differential pane l (Bld)on 09-09-2023 Basophils (Bld) [#/Vol] 0.05 10*3/uL [facility] Basophils/100 WBC (Bld) 0.6 % 0.0 - 2.0 % [facility] Eosinophils (Bld) [#/Vol] 0.33 10*3/uL [facility] Eosinophils/100 WBC (Bld) 3.7 % 0.0 - 6.0 % [facility] Erythrocyte distribution width (RBC) [Ratio] 14.0 % 11.5 - 14.5 % [facility] Hematocrit (Bld) [Volume fraction] 31.2 % Low 36.0 - 46.0 % [facility] Hemoglobin (Bld) [Mass/Vol] 9.8 g/dL Low 12.0 - 16.0 g/dL [facility] Immature granulocytes (Bld) [#/Vol] 0.03 10*3/uL [facility] Immature granulocytes/100 WBC (Bld) 0.3 % 0.0 - 0.9 % [facility] Comment on above: Immature Granulocyte Count (IG) includes promyelocytes, myelocytes and metamyelocytes but does not include bands. Percent differential counts (%) should be interpreted in the context of the absolute cell counts (cells/UL). Interpretation and review of laboratory results Abnormal [facility] Lymphocytes (Bld) [#/Vol] 1.32 10*3/uL [facility] Lymphocytes/100 WBC (Bld) 14.8 % 13.0 - 44.0 % [facility] MCH (RBC) [Entitic mass] 31.3 pg 26.0 - 34.0 pg [facility] MCHC (RBC) [Mass/Vol] 31.4 g/dL Low 32.0 - 36.0 g/dL [facility] MCV (RBC) [Entitic vol] 100 fL 80 - 100 fL [facility] Monocytes (Bld) [#/Vol] 0.67 10*3/uL [facility] Monocytes/100 WBC (Bld) 7.5 % 2.0 - 10.0 % [facility] Neutrophils (Bld) [#/Vol] 6.50 10*3/uL High [facility] Comment on above: Percent differential counts (%) should be interpreted in the context of the absolute cell counts (cells/uL). Neutrophils/100 WBC (Bld) 73.1 % 40.0 - 80.0 % [facility] Nucleated RBC/100 WBC (Bld) [Ratio] 0.0 % [facility] Platelets (Bld) [#/Vol] 196 10*3/uL [facility] RBC (Bld) [#/Vol] 3.13 10*6/uL Low [facility] WBC (Bld) [#/Vol] 8.9 10*3/uL [facility] Basophils (Bld) [#/Vol] 0.05 x10*3/uL Normal 0.00-0.10 [facility] Comment on above: Performed By: #### 5 7021-8 #### AKOSUA SEGOVIA ([id number]) [facility] ([facility]) [address] [place] [address] 74949 Basophils/100 WBC (Bld) 0.6 % Normal 0.0-2.0 [facility] Comment on above: Performed By: #### 5 7021-8 #### AKOSUA SEGOVIA ([id number]) [facility] ([facility]) [address] [place] [address] 02666 Eosinophils (Bld) [#/Vol] 0.33 x10*3/uL Normal 0.00-0.40 [facility] Comment on above: Performed By: #### 5 7021-8 #### AKOSUA SEGOVIA ([id number]) [facility] ([facility]) [address] [place] [address] 41897 Eosinophils/100 WBC (Bld) 3.7 % Normal 0.0-6.0 [facility] Comment on above: Performed By: #### 5 7021-8 #### AKOSUA SEGOVIA ([id number]) [facility] ([facility]) [address] [place] [address] Erythrocyte distribution width (RBC) [Ratio] 14.0 % Normal 11.5-14.5 [facility] Comment on above: Performed By: #### 5 7021-8 #### AKOSUA SEGOVIA ([id number]) [facility] ([facility]) [address] [place] [address] Hematocrit (Bld) [Volume fraction] 31.2 % Low 36.0-46.0 [facility] Comment on above: Performed By: #### 5 7021-8 #### AKOSUA SEGOVIA ([id number]) [facility] ([facility]) [address] [place] [address] Hemoglobin (Bld) [Mass/Vol] 9.8 g/dL Low 12.0-16.0 [facility] Comment on above: Performed By: #### 5 7021-8 #### AKOSUA SEGOVIA ([id number]) [facility] ([facility]) [address] [place] [address] Immature granulocytes (Bld) [#/Vol] 0.03 x10*3/uL Normal 0.00-0.50 [facility] Comment on above: Performed By: #### 5 7021-8 #### AKOSUA SEGOVIA ([id number]) [facility] ([facility]) [address] [place] [address] Immature granulocytes/100 WBC (Bld) 0.3 % Normal 0.0-0.9 [facility] Comment on above: Result Comment: Mely ture Granulocyte Count (IG) includes promyelocytes, myelocytes and metamyelocytes but does not include bands. Percent differential counts (%) should be interpreted in the context of the absolute cell counts (cells/UL). Performed By: #### 5 7021-8 #### AKOSUA SEGOVIA ([id number]) [facility] ([facility]) [address] [place], [place] [address] Lymphocytes (Bld) [#/Vol] 1.32 x10*3/uL Normal 0.80-3.00 [facility] Comment on above: Performed By: #### 5 7021-8 #### AKOSUA SEGOVIA ([id number]) [facility] ([facility]) [address] [place] [address] 01454 Lymphocytes/100 WBC (Bld) 14.8 % Normal 13.0-44.0 [facility] Comment on above: Performed By: #### 5 7021-8 #### AKOSUA SEGOVIA ([id number]) [facility] ([facility]) [address] [place] [address] 77302 MCH (RBC) [Entitic mass] 31.3 pg Normal 26.0-34.0 [facility] Comment on above: Performed By: #### 5 7021-8 #### AKOSUA SEGOVIA ([id number]) [facility] ([facility]) [address] [place] [address] 02303 MCHC (RBC) [Mass/Vol] 31.4 g/dL Low 32.0-36.0 [facility] Comment on above: Performed By: #### 5 7021-8 #### AKOSUA SEGOVIA ([id number]) [facility] ([facility]) [address] [place] [address] 95322 MCV (RBC) [Entitic vol] 100 fL Normal 80-100 [facility] Comment on above: Performed By: #### 5 7021-8 #### AKOSUA SEGOVIA ([id number]) [facility] ([facility]) [address] [place] [address] 96772 Monocytes (Bld) [#/Vol] 0.67 x10*3/uL Normal 0.05-0.80 [facility] Comment on above: Performed By: #### 5 7021-8 #### AKOSUA SEGOVIA ([id number]) [facility] ([facility]) [address] [place] [address] 91150 Monocytes/100 WBC (Bld) 7.5 % Normal 2.0-10.0 [facility] Comment on above: Performed By: #### 5 7021-8 #### AKOSUA SEGOVIA ([id number]) [facility] ([facility]) [address] [place] [address] 27289 Neutrophils (Bld) [#/Vol] 6.50 x10*3/uL High 1.60-5.50 [facility] Comment on above: Result Comment: Perc ent differential counts (%) should be interpreted in the context of the absolute cell counts (cells/uL). Performed By: #### 5 7021-8 #### AKOSUA SEGOVIA ([id number]) [facility] ([facility]) [address] [place] [address] 58642 Neutrophils/100 WBC (Bld) 73.1 % Normal 40.0-80.0 [facility] Comment on above: Performed By: #### 5 7021-8 #### AKOSUA SEGOVIA ([id number]) [facility] ([facility]) [address] [place], [place] [address] Nucleated RBC/100 WBC (Bld) [Ratio] 0.0 /100 WBCs Normal 0.0-0.0 [facility] Comment on above: Performed By: #### 5 7021-8 #### AKOSUA SEGOVIA ([id number]) [facility] ([facility]) [address] [place] [address] 35278 Platelets (Bld) [#/Vol] 196 x10*3/uL Normal 150-450 [facility] Comment on above: Performed By: #### 5 7021-8 #### AKOSUA SEGOVIA ([id number]) [facility] ([facility]) [address] [place] [address] 08809 RBC (Bld) [#/Vol] 3.13 x10*6/uL Low 4.00-5.20 [facility] Comment on above: Performed By: #### 5 7021-8 #### AKOSUA SEGOVIA ([id number]) [facility] ([facility]) [address] [place] [address] 86457 WBC (Bld) [#/Vol] 8.9 x10*3/uL Normal 4.4-11.3 [facility] Comment on above: Performed By: #### 5 7021-8 #### AKOSUA SEGOVIA ([id number]) [facility] ([facility]) [address] [place] [address] Cardiac catheterization stud yon 09-09-2023 [facility] [address] [place] [address] [phone], Cardiovascular Catheterization Report Patient Name: VAL ERICKSON Performing Physician: [id number] Cesar Lucio MD Study Date: 09/09/2023 Verifying Physician: [id number] Cesar Lucio MD MRN/PID: [id number] [employer] Hand/Co-Scrub: Ordering Provider: [id number] MONSERRAT PRINCE Date of /Age: 11 1945 / 78 years [employer] Hand: Gender: F Fellow: Surgeon: Study: Right and Left Heart Cath Indications: VAL ERICKSON is a 79 year old female who presents with hypertension, diabetes, dyslipidemia and a chest pain assessment of typical angina. Cardiomyopathy. Heart failure. Cardiac arrest: No. Procedure Description: After infiltration with 2% Lidocaine, the right radial artery was cannulated with a modified Seldinger technique. Subsequently a 5 Indian sheath was placed in the right radial artery. Selective coronary catheterization was performed using a 5 Fr catheter(s) exchanged over a guide wire to cannulate the coronary arteries. A 5 Fr Clay catheter was used for left and right [...] ICD 10 (more content not included)... Cesar Small MD - 09/09/2023 [facility] [address] [place] [address] [phone], Cardiovascular Catheterization Report Patient Name: VAL ERICKSON Performing Physician: [id number] Cesar Lucoi MD Study Date: 09/09/2023 Verifying Physician: [id number] Lucio MD MRN/PID: [id number] [employer] Hand/Co-Scrub: Ordering Provider: [id number] MONSERRAT PRINCE Date of /Age: 11 1945 / 78 years [employer] Hand: Gender: F Fellow: Surgeon: Study: Right and Left Heart Cath Indications: VAL ERICKSON is a 79 year old female who presents with hypertension, diabetes, dyslipidemia and a chest pain assessment of typical angina. Cardiomyopathy. Heart failure. Cardiac arrest: No. Procedure Description: After infiltration with 2% Lidocaine, the right radial artery was cannulated with a modified Seldinger technique. Subsequently a 5 Indian sheath was placed in the right radial artery. Selective coronary catheterization was performed using a 5 Fr catheter(s) exchanged over a guide wire to cannulate the coronary arteries. A 5 Fr Clay catheter was used for left and right [...] Codes: Right & Left Heart Cath w/ventriculography (RHC)([facility])-74476; Moderate Sedation Services initial 15 minutes patient >5 years-14847; Moderate Sedation Services 1st additional 15 minutes patient >5 years-58989 [id number] Cesar Lucio MD Performing [place] [id number] Cesar Reynoso (more content not included)... [facility] Work Phone: [facility] Work Phone: D-dimer, VTE Exclusionon Fibrin D-dimer FEU (PPP) [Mass/Vol] 1012 High NINF [facility] ECG 12-LEADon 09-09-2023 ECG 12-LEAD Ventricular Rate 88 Atrial Rate 88 P-R Interval 244 QRS Duration 130 Q-T Interval 400 QTC Calculation(Bazett) 484 P [place] 60 R [place] -50 T [place] 197 QRS Count 14 Q Onset 216 [...] Florian ([id number]) on 09/13/2023 11:48:02 AM Normal [facility] ECG 12-LEAD Ventricular Rate 95 Atrial Rate 95 P-R Interval 218 QRS Duration 132 Q-T Interval 390 QTC Calculation(Bazett) 490 P [place] 63 R [place] -38 T [place] 145 QRS Count 16 Q Onset 205 [...] Florian ([id number]) on 09/13/2023 11:47:21 AM Normal [facility] Fibrin D-dimer FEUon 024 Fibrin D-dimer FEU (PPP) [Mass/Vol] 1012 ng/mL FEU High <=500 [facility] Comment on above: Order Comment: The V TE Exclusion D-Dimer assay is reported in ng/mL Fibrinogen Equivalent Units (FEU). Per tool clerk's instructions for use, a value of less [...] By: #### 4 8065-7 #### [place] ([id number]) [facility] ([facility]) [address] [place] [address] Fibrin D-dimer FEU (PPP) [Ma ss/Vol]on 09-09-2023 Interpretation and review of laboratory results Abnormal [facility] The VTE Exclusion D-Dimer assay is reported in ng/mL Fibrinogen Equivalent Units (FEU). Per tool clerk's instructions for use, a value of less [...] assessment model for DVT or PE exclusion.) [facility] Glucose Test strip manual (B ld) [Mass/Vol]on 09-09-2023 Glucose [Mass/Vol] 214 mg/dL High 74 - 99 mg/dL [facility] Interpretation and review of laboratory results Abnormal [facility] Glucose [Mass/Vol] 214 mg/dL High 74-99 [facility] Comment on above: Performed By: #### 2 4321-2 #### AKOSUA SEGOVIA ([id number]) [facility] ([facility]) [facility] [place] [address] Glucose [Mass/Vol] 116 mg/dL High 74 - 99 mg/dL [facility] Interpretation and review of laboratory results Abnormal [facility] Glucose [Mass/Vol] 116 mg/dL High 74-99 [facility] Comment on above: Performed By: #### 2 4321-2 #### AKOSUA SEGOVIA ([id number]) [facility] ([facility]) [address] [place] [address] 59638 Glucose [Mass/Vol] 112 mg/dL High 74 - 99 mg/dL [facility] Interpretation and review of laboratory results Abnormal [facility] Glucose [Mass/Vol] 112 mg/dL High 74-99 [facility] Comment on above: Performed By: #### 2 4321-2 #### AKOSUA SEGOVIA ([id number]) [facility] ([facility]) [address] [place] [address] 18756 Glucose [Mass/Vol] 161 mg/dL High 74 - 99 mg/dL [facility] Interpretation and review of laboratory results Abnormal [facility] Glucose [Mass/Vol] 161 mg/dL High 74-99 [facility] Comment on above: Performed By: #### 2 341-6 #### AKOSUA SEGOVIA ([id number]) [facility] ([facility]) [address] [place] [address] Lipid 1996 panelon 4 Cholesterol [Mass/Vol] 87 mg/dL 0 - 199 mg/dL [facility] Comment on above: Age Desirable Borderline High [...] 128(S5).Adult guidelines reference: NCEP ATPIII Guidelines,CLARISSA 2001, 258:9006-04 Venipuncture immediately after or during the administration of Metamizole may lead to falsely low results. Testing should be performed immediately prior to Metamizole dosing. Cholesterol in HDL [Mass/Vol] 37.0 mg/dL [facility] Comment on above: Age Very Low Low Normal High 0-19 Y < 35 < 40 40-45 ---- 20-24 Y ---- < 40 >45 ---- >24 Y ---- < 40 40-60 >60 Cholesterol in LDL [Mass/Vol] 27 mg/dL NINF - 99 mg/dL [facility] Comment on above: Near Borderline AGE Desirable Optimal High High Very High 0-19 Y 0 - 109 --- 110-129 >/= 130 ---- 20-24 Y 0 - 119 --- 120-159 >/= 160 ---- >24 Y 0 - 99 100-129 130-159 160-189 >/=190 Cholesterol in VLDL [Mass/Vol] 23 mg/dL 0 - 40 mg/dL [facility] Cholesterol.total/Cho lesterol in HDL [Mass ratio] 2.4 {ratio} [facility] Comment on above: Ref Values Desirable < 3.4 High Risk > 5.0 Non HDL Cholesterol 50 mg/dL 0 - 149 mg/dL [facility] Comment on above: Age Desirable Borderline High High Very High 0-19 Y 0 - 119 120 - 144 >/= 145 >/= 160 20-24 Y 0 - 149 150 - 189 >/= 190 ---- >24 Y 30 mg/dL above LDL Cholesterol goal Triglyceride [Mass/Vol] 114 mg/dL 0 - 149 mg/dL [facility] Comment on above: Age Desirable Borderline High [...] be performed immediately prior to Metamizole dosing. [facility] Cholesterol [Mass/Vol] 87 mg/dL Normal 0-199 [facility] Comment on above: Result Comment: Age [...] By: #### 2 4321-2 #### AKOSUA SEGOVIA ([id number]) [facility] ([facility]) [address] [place] [address] 26765 Cholesterol in HDL [Mass/Vol] 37.0 mg/dL Normal [facility] Comment on above: Result Comment: Age Very Low Low Normal High 0-19 Y < 35 < 40 40-45 ---- 20-24 Y ---- < 40 >45 ---- >24 Y ---- < 40 40-60 >60 Performed By: #### 2 4321-2 #### AKOSUA SEGOVIA ([id number]) [facility] ([facility]) [address] [place] [address] 26544 Cholesterol in LDL [Mass/Vol] 27 mg/dL Normal <=99 [facility] Comment on above: Result Comment: Near Borderline AGE Desirable Optimal High High Very High 0-19 Y 0 - 109 --- 110-129 >/= 130 ---- 20-24 Y 0 - 119 --- 120-159 >/= 160 ---- >24 Y 0 - 99 100-129 130-159 160-189 >/=190 Performed By: #### 2 4321-2 #### AKOSUA SEGOVIA ([id number]) [facility] ([facility]) [address] [place] [address] 56037 Cholesterol in VLDL [Mass/Vol] 23 mg/dL Normal 0-40 [facility] Comment on above: Performed By: #### 2 4321-2 #### AKOSUA SEGOVIA ([id number]) [facility] ([facility]) [address] [place] [address] 97558 CHOLESTEROL/HDL RATIO 2.4 Normal [facility] Comment on above: Result Comment: Ref Values Desirable < 3.4 High Risk > 5.0 Performed By: #### 2 4321-2 #### AKOSUA SEGOVIA ([id number]) [facility] ([facility]) [address] [place] [address] 10347 NON HDL CHOLESTEROL 50 mg/dL Normal 0-149 [facility] Comment on above: Result Comment: Age Desirable Borderline High High Very High 0-19 Y 0 - 119 120 - 144 >/= 145 >/= 160 20-24 Y 0 - 149 150 - 189 >/= 190 ---- >24 Y 30 mg/dL above LDL Cholesterol goal Performed By: #### 2 4321-2 #### AKOSUA SEGOVIA ([id number]) [facility] ([facility]) [address] [place] [address] 71882 Triglyceride [Mass/Vol] 114 mg/dL Normal 0-149 [facility] Comment on above: Result Comment: Age [...] By: #### 2 4321-2 #### AKOSUA SEGOVIA ([id number]) [facility] ([facility]) [address] [place] [address] [address] [place] LUNG PERFUSIONon 09-09-19 24 NM LUNG PERFUSION Interpreted By: Paula Alcaraz, STUDY: NM LUNG PERFUSION; 09/10/2023 7:49 am INDICATION: Signs/Symptoms:chest pain. COMPARISON: None. ACCESSION NUMBER(S): [id number] ORDERING CLINICIAN: MONSERRAT PRINCE TECHNIQUE: DIVISION OF [...] acute pulmonary embolism. Images were interpreted at [facility]. Signed by: Paula Paredes 09/10/2023 7:54 AM Dictation workstation: [id number] Normal [facility] PT and aPTT panel Coag (PPP) on 09-09-2023 aPTT Coag (PPP) [Time] 31 s [facility] INR Coag (PPP) [Relative time] 1.1 {INR} 0.9 - 1.1 [facility] Interpretation and review of laboratory results Abnormal [facility] PT Coag (PPP) [Time] 13.3 s [facility] The APTT is no longe r used for monitoring Unfractionated Heparin Therapy. For monitoring Heparin Therapy, use the Heparin Assay. [facility] aPTT Coag (PPP) [Time] 31 s Normal 27-38 [facility] Comment on above: Order Comment: The A PTT is no longer used for monitoring Unfractionated Heparin Therapy. For monitoring Heparin Therapy, use the Heparin Assay. Performed By: #### 3 4529-8 #### AKOSUA SEGOVIA ([id number]) [facility] ([facility]) [address] [place] [id number] INR Coag (PPP) [Relative time] 1.1 Normal 0.9-1.1 [facility] Comment on above: Order Comment: The A PTT is no longer used for monitoring Unfractionated Heparin Therapy. For monitoring Heparin Therapy, use the Heparin Assay. Performed By: #### 3 4529-8 #### AKOSUA SEGOVIA ([id number]) [facility] ([facility]) [address] [place] [address] PT Coag (PPP) [Time] 13.3 s High 9.8-12.8 [facility] Comment on above: Order Comment: The A PTT is no longer used for monitoring Unfractionated Heparin Therapy. For monitoring Heparin Therapy, use the Heparin Assay. Performed By: #### 3 4529-8 #### SOUTH JULIETTE ([id number]) [facility] ([facility]) [facility] [place] [address] Tropinin I.cardiac panel Hig h sensitivity methodon 09-09-2023 Interpretation and review of laboratory results Abnormal [facility] Less than 99th percentile of normal range [...] performed using a different testing methodology at [facility] than at other [facility]. Direct result comparisons should only be made within the same method. [facility] Interpretation and review of laboratory results Abnormal [facility] Less than 99th percentile of normal range [...] performed using a different testing methodology at [facility] than at other system [facility]. Direct result comparisons should only be made within the same method. [facility] Troponin I, High Sensitivity , Initialon 09-09-2023 Tropinin I.cardiac panel High sensitivity method 20 ng/L High 0 - 13 ng/L [facility] Troponin I.cardiac panelon 0 09-09-2023 Tropinin I.cardiac panel High sensitivity method 21 ng/L High 0-13 [facility] Comment on above: Order Comment: Less [...] performed using a different testing methodology at [facility] than at other [facility]. Direct result comparisons should only be made within the same method. Performed By: #### 8 [id number] #### SOUTH JULIETTE ([id number]) [facility] ([facility]) [address] [place] [address] Tropinin I.cardiac panel High sensitivity method 20 ng/L High 0-13 [facility] Comment on above: Order Comment: Less [...] performed using a different testing methodology at [facility] than at other [facility]. Direct result comparisons should only be made within the same method. Performed By: #### 8 9577-1 #### SOUTH JULIETTE ([id number]) [facility] ([facility]) [address] [place] [address] Troponin, High Sensitivity, 1 Houron 09-09-2023 Tropinin I.cardiac panel High sensitivity method 21 ng/L High 0 - 13 ng/L [facility] US.doppler Lower extremity v ein - bilateralon 09-09-2023 Radiology Study observation (narrative) [facility] Work Phone: VASC US LOWER EXTREMITY VENO US DUPLEX BILATERALon 09-09-2023 VAS US LOWER EXTREMITY [place] [address] [phone], Vascular Lab Report VAS US LOWER EXTREMITY VENOUS DUPLEX BILATERAL Patient Name: VAL Dwyer Physician: [id number] Indu Sanchez MD Study Date: 09/09/2023 Ordering Provider: [id number] MONSERRAT PRINCE MRN/PID: [id number] Fellow: Technologist: Rosa Elena Pritchard RVT/ Date of /Age: 11 1945 / 78 years Technologist 2: Gender: F Admission Status: Inpatient Location Performed: [facility] Diagnosis/ICD: Localized (leg) edema-R60.0; Shortness of breath-R06.02 CPT Codes: 66987 Peripheral venous duplex scan for DVT complete [...] Distal Yes None Popliteal Yes None Spontaneous/Phasic [id number] Indu Sanchez MD Final [facility] XR CHEST 1 VIEWon 09-09-2023 XR CHEST 1 VIEW Interpreted By: Latrell Vargas, STUDY: XR CHEST 1 VIEW; 09/09/2023 5:13 am INDICATION: Signs/Symptoms:cp. COMPARISON: Chest radiograph 10/04/2022. ACCESSION NUMBER(S): [id number] ORDERING CLINICIAN: TONY MENENDEZ FINDINGS: CARDIOMEDIASTINAL SILHOUETTE: [...] Latrell Bal 09/09/2023 5:54 AM Dictation workstation: [id number] [facility] XR Chest Single viewon 09-08 1. No evidence of ac solomon cardiopulmonary process. Stable cardiomegaly. Signed by: Latrell Bal 09/09/2023 5:54 AM Dictation workstation: [id number] Interpreted By: Latrell Vargas, STUDY: XR CHEST 1 VIEW; 09/09/2023 5:13 am INDICATION: Signs/Symptoms:cp. COMPARISON: Chest radiograph 10/04/2022. ACCESSION NUMBER(S): [id number] ORDERING CLINICIAN: TONY MENENDEZ FINDINGS: CARDIOMEDIASTINAL SILHOUETTE: [...] Signs/Symptoms:cp. COMPARISON: Chest radiograph 10/04/2022. ACCESSION NUMBER(S): [id number] ORDERING CLINICIAN: TONY MENENDEZ FINDINGS: CARDIOMEDIASTINAL SILHOUETTE: [...] Latrell Bal 09/09/2023 5:54 AM Dictation workstation: [id number] [facility] Work Phone: Radiology Study observation (narrative) [facility] Work Phone: XR Chest Single viewOrdered By: Latrell Bal on 09-09-2023 [facility] Work Phone: Basophil percentageOrdered B y: Peewee Louise on 07-17-2023 Basophil percentage 3.1 mg/dL 2.5-4.9 [place] [facility] Chloride [Moles/Vol] 106 mmol/L 98-[address] [facility] [address] [facility] Glucose [Mass/Vol] 64 mg/dL 74-106 [place] [facility] Hemoglobin (Bld) [Mass/Vol] 9.4 g/dL 12.0-15.0 [place] [facility] Potassium [Moles/Vol] 4.1 mmol/L 3.5-5.1 [facility] Sodium [Moles/Vol] 139 mmol/L 136-145 [facility] Hematocrit Auto (Bld) [Volum e fraction]Ordered By: Peewee Louise on 07-17-2023 Hematocrit (Bld) [Volume fraction] 30.9 % 37-47 [facility] - Chemistry and C hemistry - challengeOrdered By: Peewee Louise on 07-17-2023 CO2 [Moles/Vol] 29.0 mmol/L 21.0-32.0 [facility] Urea nitrogen/Creatinine [Mass ratio] 16.3 mg/mg 10-20 [facility] No Panel InformationOrdered By: Peewee Louise on 07-17-2023 Estimated GFR (MDRD) Amer 31 mL/min >60 [facility] Comment on above: GFR Calc Estimated GFR (MDRD) Non-Af Amer 25 mL/min >60 [facility] Comment on above: Non- GFR Calc Serum or plasma calcium jarrett urement (mass/volume)Ordered By: Peewee Louise on 07-17-2023 Calcium [Mass/Vol] 9.1 mg/dL 8.5-10.1 [facility] Serum or plasma creatinine m easurement (mass/volume)Ordered By: Peewee Louise on 07-17-2023 Creatinine [Mass/Vol] 2.02 mg/dL 0.55-1.02 [facility] Comment on above: The validity of the calculated GFR & GFRAA in patients over 70 years has not been determined. Clinical correlation is essential. Serum or plasma urea nitroge n measurement (mass/volume)Ordered By: Peewee Louise on 07-17-2023 Urea nitrogen [Mass/Vol] 33 mg/dL 7-18 [facility] Thin prep Papanicolaou smear with manual screeningOrdered By: Peewee Louise on 07-17-2023 Thin prep Papanicolaou smear with manual screening 3.3 g/dL 3.2-5.0 [facility] Basophil percentageOrdered B y: Peewee Louise on 06-21-2023 Basophil percentage 2.6 mg/dL 2.5-4.9 [facility] Chloride [Moles/Vol] 105 mmol/L 98-107 [facility] Glucose [Mass/Vol] 97 mg/dL 74-106 [facility] Hemoglobin (Bld) [Mass/Vol] 11.5 g/dL 12.0-15.0 [facility] Potassium [Moles/Vol] 4.7 mmol/L 3.5-5.1 [facility] Sodium [Moles/Vol] 135 mmol/L 136-145 [facility] Hematocrit Auto (Bld) [Volum e fraction]Ordered By: Peewee Louise on 06-21-2023 Hematocrit (Bld) [Volume fraction] 36.6 % 37-47 [facility] Iron measurement (mass/mass) Ordered By: Peewee Louise on 06-21-2023 Iron (Unsp spec) [Mass/Mass] 78 ug/dL 50-170 [facility] - Chemistry and C hemistry - challengeOrdered By: Peewee Louise on 06-21-2023 CO2 [Moles/Vol] 24.0 mmol/L 21.0-32.0 [facility] Ferritin [Mass/Vol] 118 ng/mL 8-252 [facility] Urea nitrogen/Creatinine [Mass ratio] 17.1 mg/mg 10-20 [facility] No Panel InformationOrdered By: Peewee Louise on 06-21-2023 Estimated GFR (MDRD) Amer 29 mL/min >60 [facility] Comment on above: GFR Calc Estimated GFR (MDRD) Non-Af Amer 24 mL/min >60 [facility] Comment on above: Non- GFR Calc Total Iron Binding Capacity 426 ug/dL 250-450 [facility] Serum or plasma calcium jarrett urement (mass/volume)Ordered By: Peewee Louise on 06-21-2023 Calcium [Mass/Vol] 9.3 mg/dL 8.5-10.1 [facility] Serum or plasma creatinine m easurement (mass/volume)Ordered By: Peewee Louise on 06-21-2023 Creatinine [Mass/Vol] 2.11 mg/dL 0.55-1.02 [facility] Comment on above: The validity of the calculated GFR & GFRAA in patients over 70 years has not been determined. Clinical correlation is essential. Serum or plasma iron saturat ion measurement (mass fraction)Ordered By: Peewee Louise on 06-21-2023 Iron saturation [Mass fraction] 18.3 % 15.0-55.0 [facility] Serum or plasma urea nitroge n measurement (mass/volume)Ordered By: Peewee Louise on 06-21-2023 Urea nitrogen [Mass/Vol] 36 mg/dL 7-18 [facility] Thin prep Papanicolaou smear with manual screeningOrdered By: Peewee Louise on 06-21-2023 Thin prep Papanicolaou smear with manual screening 3.5 g/dL 3.2-5.0 [facility] Basophil percentageOrdered B y: Peewee Louise on 05-24-2023 Basophil percentage 2.6 mg/dL 2.5-4.9 [facility] Chloride [Moles/Vol] 103 mmol/L 98-107 [facility] Glucose [Mass/Vol] 96 mg/dL 74-106 [facility] Hemoglobin (Bld) [Mass/Vol] 10.8 g/dL 12.0-15.0 [facility] Potassium [Moles/Vol] 4.2 mmol/L 3.5-5.1 [facility] Sodium [Moles/Vol] 137 mmol/L 136-145 [facility] Hematocrit Auto (Bld) [Volum e fraction]Ordered By: Peewee Louise on 05-24-2023 Hematocrit (Bld) [Volume fraction] 34.1 % 37-47 [facility] Laboratory - Chemistry and C hemistry - challengeOrdered By: Peewee Louise on 05-24-2023 CO2 [Moles/Vol] 25.0 mmol/L 21.0-32.0 [facility] Urea nitrogen/Creatinine [Mass ratio] 20.8 mg/mg 10-20 [facility] No Panel InformationOrdered By: Peewee Louise on 05-24-2023 Estimated GFR (MDRD) Amer 28 mL/min >60 [facility] Comment on above: GFR Calc Estimated GFR (MDRD) Non-Af Amer 23 mL/min >60 [facility] Comment on above: Non- GFR Calc Serum or plasma calcium jarrett urement (mass/volume)Ordered By: Peewee Louise on 05-24-2023 Calcium [Mass/Vol] 9.2 mg/dL 8.5-10.1 [facility] Serum or plasma creatinine m easurement (mass/volume)Ordered By: Peewee Louise on 05-24-2023 Creatinine [Mass/Vol] 2.21 mg/dL 0.55-1.02 [facility] Comment on above: The validity of the calculated GFR & GFRAA in patients over 70 years has not been determined. Clinical correlation is essential. Serum or plasma urea nitroge n measurement (mass/volume)Ordered By: Peewee Louise on 05-24-2023 Urea nitrogen [Mass/Vol] 46 mg/dL 7-18 [facility] Thin prep Papanicolaou smear with manual screeningOrdered By: Peewee Louise on 05-24-2023 Thin prep Papanicolaou smear with manual screening 3.4 g/dL 3.2-5.0 [facility] HEMOGLOBIN A1C (POC)on 05-01 HbA1c (Bld) [Mass fraction] 8.3 % Abnormal 4.3 - 5.6 % [facility] Basophil percentageOrdered B y: Peewee Louise on 04-24-2023 Basophil percentage 3.3 mg/dL 2.5-4.9 [facility] Chloride [Moles/Vol] 105 mmol/L 98-107 [facility] Glucose [Mass/Vol] 130 mg/dL 74-106 [facility] Comment on above: Fasting Glucose resu lt greater than or equal to 126 mg/dL suggests DIABETES MELLITUS per A.D.A. criteria. Hemoglobin (Bld) [Mass/Vol] 10.7 g/dL 12.0-15.0 [facility] Potassium [Moles/Vol] 4.1 mmol/L 3.5-5.1 [facility] Sodium [Moles/Vol] 136 mmol/L 136-145 [facility] Hematocrit Auto (Bld) [Volum e fraction]Ordered By: Peewee Louise on 04-24-2023 Hematocrit (Bld) [Volume fraction] 33.3 % 37-47 [facility] Laboratory - Chemistry and C hemistry - challengeOrdered By: Peewee Louise on 04-24-2023 CO2 [Moles/Vol] 29.0 mmol/L 21.0-32.0 [facility] Urea nitrogen/Creatinine [Mass ratio] 16.3 mg/mg 10-20 [facility] No Panel InformationOrdered By: Peewee Louise on 04-24-2023 Estimated GFR (MDRD) Amer 30 mL/min >60 [facility] Comment on above: GFR Calc Estimated GFR (MDRD) Non-Af Amer 25 mL/min >60 [facility] Comment on above: Non- GFR Calc Serum or plasma calcium jarrett urement (mass/volume)Ordered By: Peewee Louise on 04-24-2023 Calcium [Mass/Vol] 9.3 mg/dL 8.5-10.1 [facility] Serum or plasma creatinine m easurement (mass/volume)Ordered By: Peewee Louise on 04-24-2023 Creatinine [Mass/Vol] 2.03 mg/dL 0.55-1.02 [facility] Comment on above: The validity of the calculated GFR & GFRAA in patients over 70 years has not been determined. Clinical correlation is essential. Serum or plasma urea nitroge n measurement (mass/volume)Ordered By: Peewee Louise on 04-24-2023 Urea nitrogen [Mass/Vol] 33 mg/dL 7-18 [facility] Thin prep Papanicolaou smear with manual screeningOrdered By: Peewee Louise on 04-24-2023 Thin prep Papanicolaou smear with manual screening 3.2 g/dL 3.2-5.0 [facility] Basophil percentageOrdered B y: Peewee Louise on 03-29-2023 Basophil percentage 2.9 mg/dL 2.5-4.9 [facility] Chloride [Moles/Vol] 105 mmol/L 98-107 [facility] Glucose [Mass/Vol] 230 mg/dL 74-106 [facility] Comment on above: Glucose result great er than or equal to 200 mg/dLsuggests DIABETES MELLITUS per A.D.A. criteria. Potassium [Moles/Vol] 5.0 mmol/L 3.5-5.1 [facility] Sodium [Moles/Vol] 138 mmol/L 136-145 [facility] WBC (Bld) [#/Vol] 7.9 10*3/uL 4.4-11.0 [facility] Blood erythrocytes count (nu mber/volume)Ordered By: Peewee Louise on 03-29-2023 RBC (Bld) [#/Vol] 3.67 10*6/uL 4.2-5.4 [facility] Blood hemoglobin measurement (mass/volume)Ordered By: Peewee Louise on 03-29-2023 Hemoglobin (Bld) [Mass/Vol] 11.6 g/dL 12.0-15.0 [facility] Blood platelet mean volumeOr dered By: Peewee Louise on 03-29-2023 Platelet mean volume (Bld) [Entitic vol] 9.2 fL 6.2-12.0 [facility] Determination of erythrocyte mean corpuscular volume (MCV)Ordered By: Peewee Louise on 03-29-2023 MCV (RBC) [Entitic vol] 100.5 fL 81-99 [facility] Hematocrit Auto (Bld) [Volum e fraction]Ordered By: Peewee Louise on 03-29-2023 Hematocrit (Bld) [Volume fraction] 36.9 % 37-47 [facility] Iron measurement (mass/mass) Ordered By: Peewee Louise on 03-29-2023 Iron (Unsp spec) [Mass/Mass] 75 ug/dL 50-170 [facility] Laboratory - Chemistry and C hemistry - challengeOrdered By: Peewee Louise on 03-29-2023 CO2 [Moles/Vol] 27.0 mmol/L 21.0-32.0 [facility] Urea nitrogen/Creatinine [Mass ratio] 17.0 mg/mg 10-20 [facility] Laboratory - Hematology and Cell countsOrdered By: Peewee Louise on 03-29-2023 Erythrocyte distribution width (RBC) [Entitic vol] 49.8 fL 35.1-43.9 [facility] Erythrocyte distribution width (RBC) [Ratio] 13.4 % 11.6-14.6 [facility] MCH (RBC) [Entitic mass] 31.6 pg 27.0-32.0 [facility] MCHC Auto (RBC) [Mass/Vol]Or dered By: Peewee Louise on 03-29-2023 MCHC (RBC) [Mass/Vol] 31.4 g/dL 32-36 [facility] No Panel InformationOrdered By: Peewee Louise on 03-29-2023 Estimated GFR (MDRD) Amer 26 mL/min >60 [facility] Comment on above: GFR Calc Estimated GFR (MDRD) Non-Af Amer 21 mL/min >60 [facility] Comment on above: Non- GFR Calc Parathyroid Hormone (Intact) 53.8 pg/mL 18.4-80.1 [facility] Total Iron Binding Capacity 280 ug/dL 250-450 [facility] Vitamin D 25-Hydroxy 37.1 ng/mL [facility] Comment on above: Vitamin D 25(OH) Sta tus Range Deficiency <20 ng/mL (50nmol/L) Insufficiency 20 - 30 ng/mL (50 - 75 nmol/L) Sufficiency 30 - 100 ng/mL (75 - 250 nmol/L) Toxicity >100 ng/mL (>250 nmol/L) Platelets bldOrdered By: Elpidio Louise on 03-29-2023 Platelets (Bld) [#/Vol] 189 10*3/uL 150-450 [facility] Serum or plasma albumin jarrett urement (mass/volume)Ordered By: Peewee Louise on 03-29-2023 Albumin [Mass/Vol] 3.4 g/dL 3.2-5.0 [facility] Serum or plasma calcium jarrett urement (mass/volume)Ordered By: Peewee Louise on 03-29-2023 Calcium [Mass/Vol] 10.3 mg/dL 8.5-10.1 [facility] Serum or plasma creatinine m easurement (mass/volume)Ordered By: Peewee Louise on 03-29-2023 Creatinine [Mass/Vol] 2.35 mg/dL 0.55-1.02 [facility] Comment on above: The validity of the calculated GFR & GFRAA in patients over 70 years has not been determined. Clinical correlation is essential. Serum or plasma ferritin bubba surement (mass/volume)Ordered By: Peewee Louise on 03-29-2023 Ferritin [Mass/Vol] 94 ng/mL 8-252 [facility] Serum or plasma iron saturat ion measurement (mass fraction)Ordered By: Peewee Louise on 03-29-2023 Iron saturation [Mass fraction] 26.8 % 15.0-55.0 [facility] Serum or plasma urea nitroge n measurement (mass/volume)Ordered By: Peewee Louise on 03-29-2023 Urea nitrogen [Mass/Vol] 40 mg/dL 7-18 [facility] Urine creatinine measurement (mass/volume)Ordered By: Peewee Louise on 03-29-2023 Creatinine (U) [Mass/Vol] 118.00 mg/dL NO RANGE EST. [facility] Urine protein measurement (m ass/volume)Ordered By: Peewee Louise on 03-29-2023 Protein (U) [Mass/Vol] 68.5 mg/dL 0.0-11.8 [facility] Urine protein/creatinine mas s ratioOrdered By: Peewee Louise on 03-29-2023 Protein/Creatinine (U) [Mass ratio] 581 mg/g CRE 0-200 [facility] Basophil percentageOrdered B y: Peewee Louise on 03-01-2023 Basophil percentage 2.9 mg/dL 2.5-4.9 [facility] Chloride [Moles/Vol] 103 mmol/L 98-107 [facility] Glucose [Mass/Vol] 150 mg/dL 74-106 [facility] Comment on above: Fasting Glucose resu lt greater than or equal to 126 mg/dL suggests DIABETES MELLITUS per A.D.A. criteria. Potassium [Moles/Vol] 4.4 mmol/L 3.5-5.1 [facility] Sodium [Moles/Vol] 136 mmol/L 136-145 [facility] Blood hemoglobin measurement (mass/volume)Ordered By: Peewee Louise on 03-01-2023 Hemoglobin (Bld) [Mass/Vol] 11.6 g/dL 12.0-15.0 [facility] Hematocrit Auto (Bld) [Volum e fraction]Ordered By: Peewee Louise on 03-01-2023 Hematocrit (Bld) [Volume fraction] 34.9 % 37-47 [facility] Laboratory - Chemistry and C hemistry - challengeOrdered By: Peewee Louise on 03-01-2023 CO2 [Moles/Vol] 27.0 mmol/L 21.0-32.0 [facility] Urea nitrogen/Creatinine [Mass ratio] 19.8 mg/mg 10-20 [facility] No Panel InformationOrdered By: Peewee Louise on 03-01-2023 Estimated GFR (MDRD) Amer 29 mL/min >60 [facility] Comment on above: GFR Calc Estimated GFR (MDRD) Non-Af Amer 24 mL/min >60 [facility] Comment on above: Non- GFR Calc Serum or plasma albumin jarrett urement (mass/volume)Ordered By: Peewee Louise on 03-01-2023 Albumin [Mass/Vol] 3.3 g/dL 3.2-5.0 [facility] Serum or plasma calcium jarrett urement (mass/volume)Ordered By: Peewee Louise on 03-01-2023 Calcium [Mass/Vol] 9.8 mg/dL 8.5-10.1 [facility] Serum or plasma creatinine m easurement (mass/volume)Ordered By: Peewee Louise on 03-01-2023 Creatinine [Mass/Vol] 2.12 mg/dL 0.55-1.02 [facility] Comment on above: The validity of the calculated GFR & GFRAA in patients over 70 years has not been determined. Clinical correlation is essential. Serum or plasma urea nitroge n measurement (mass/volume)Ordered By: Peewee Louise on 03-01-2023 Urea nitrogen [Mass/Vol] 42 mg/dL 7-18 [facility] Basophil percentageOrdered B y: Peewee Louise on 01-30-2023 Basophil percentage 3.0 mg/dL 2.5-4.9 [facility] Chloride [Moles/Vol] 103 mmol/L 98-107 [facility] Glucose [Mass/Vol] 144 mg/dL 74-106 [facility] Comment on above: Fasting Glucose resu lt greater than or equal to 126 mg/dL suggests DIABETES MELLITUS per A.D.A. criteria. Potassium [Moles/Vol] 4.2 mmol/L 3.5-5.1 [facility] Sodium [Moles/Vol] 136 mmol/L 136-145 [facility] Blood hemoglobin measurement (mass/volume)Ordered By: Peewee Louise on 01-30-2023 Hemoglobin (Bld) [Mass/Vol] 12.5 g/dL 12.0-15.0 [facility] Hematocrit Auto (Bld) [Volum e fraction]Ordered By: Peewee Louise on 01-30-2023 Hematocrit (Bld) [Volume fraction] 38.6 % 37-47 [facility] Iron measurement (mass/mass) Ordered By: Peewee Louise on 01-30-2023 Iron (Unsp spec) [Mass/Mass] 75 ug/dL 50-170 [facility] Laboratory - Chemistry and C hemistry - challengeOrdered By: Peewee Louise on 01-30-2023 CO2 [Moles/Vol] 28.0 mmol/L 21.0-32.0 [facility] Urea nitrogen/Creatinine [Mass ratio] 20.4 mg/mg 10-20 [facility] No Panel InformationOrdered By: Peewee Louise on 01-30-2023 Estimated GFR (MDRD) Amer 26 mL/min >60 [facility] Comment on above: GFR Calc Estimated GFR (MDRD) Non-Af Amer 22 mL/min >60 [facility] Comment on above: Non- GFR Calc Serum or plasma albumin jarrett urement (mass/volume)Ordered By: Peewee Louise on 01-30-2023 Albumin [Mass/Vol] 3.6 g/dL 3.2-5.0 [facility] Serum or plasma calcium jarrett urement (mass/volume)Ordered By: Peewee Louise on 01-30-2023 Calcium [Mass/Vol] 10.0 mg/dL 8.5-10.1 [facility] Serum or plasma creatinine m easurement (mass/volume)Ordered By: Peewee Louise on 01-30-2023 Creatinine [Mass/Vol] 2.30 mg/dL 0.55-1.02 [facility] Comment on above: The validity of the calculated GFR & GFRAA in patients over 70 years has not been determined. Clinical correlation is essential. Serum or plasma urea nitroge n measurement (mass/volume)Ordered By: Peewee Lousie on 01-30-2023 Urea nitrogen [Mass/Vol] 47 mg/dL 7-18 [facility] Basophil percentageOrdered B y: Peewee Louise on 01-04-2023 Basophil percentage 3.7 mg/dL 2.5-4.9 [facility] Chloride [Moles/Vol] 101 mmol/L 98-107 [facility] Glucose [Mass/Vol] 274 mg/dL 74-106 [facility] Comment on above: Glucose result great er than or equal to 200 mg/dLsuggests DIABETES MELLITUS per A.D.A. criteria. Potassium [Moles/Vol] 4.1 mmol/L 3.5-5.1 [facility] Sodium [Moles/Vol] 137 mmol/L 136-145 [facility] Blood hemoglobin measurement (mass/volume)Ordered By: Peewee Louise on 01-04-2023 Hemoglobin (Bld) [Mass/Vol] 12.1 g/dL 12.0-15.0 [facility] HEMOGLOBIN A1C (POC)on 01-04 HbA1c (Bld) [Mass fraction] 12.4 % Abnormal 4.2 - 5.6 % [facility] Hematocrit Auto (Bld) [Volum e fraction]Ordered By: Peewee Louise on 01-04-2023 Hematocrit (Bld) [Volume fraction] 36.9 % 37-47 [facility] Iron measurement (mass/mass) Ordered By: Peewee Louise on 01-04-2023 Iron (Unsp spec) [Mass/Mass] 93 ug/dL 50-170 [facility] Laboratory - Chemistry and C hemistry - challengeOrdered By: Peewee Louise on 01-04-2023 CO2 [Moles/Vol] 28.0 mmol/L 21.0-32.0 [facility] Urea nitrogen/Creatinine [Mass ratio] 18.7 mg/mg 01-04 [facility] No Panel InformationOrdered By: Peewee Louise on 01-04-2023 Estimated GFR (MDRD) Amer 24 mL/min >60 [facility] Comment on above: GFR Calc Estimated GFR (MDRD) Non-Af Amer 20 mL/min >60 [facility] Comment on above: Non- GFR Calc Total Iron Binding Capacity 290 ug/dL 250-450 [facility] Serum or plasma albumin jarrett urement (mass/volume)Ordered By: Peewee Louise on 01-04-2023 Albumin [Mass/Vol] 3.2 g/dL 3.2-5.0 [facility] Serum or plasma calcium jarrett urement (mass/volume)Ordered By: Peewee Louise on 01-04-2023 Calcium [Mass/Vol] 9.3 mg/dL 8.5-10.1 [facility] Serum or plasma creatinine m easurement (mass/volume)Ordered By: Peewee Louise on 01-04-2023 Creatinine [Mass/Vol] 2.46 mg/dL 0.55-1.02 [facility] Comment on above: The validity of the calculated GFR & GFRAA in patients over 70 years has not been determined. Clinical correlation is essential. Serum or plasma urea nitroge n measurement (mass/volume)Ordered By: Peewee Louise on 01-04-2023 Urea nitrogen [Mass/Vol] 46 mg/dL 10-02 [facility] ECG 12 Leadon 12-28-2022 EKG performed in [facility] today shows normal sinus rhythm with first-degree AV block, nonspecific interventricular conduction delay, QRS 128 ms. [facility] Work Phone: BASIC METABOLIC PANELon - Anion gap [Moles/Vol] 12 mmol/L Normal [facility] Comment on above: Performed By: #### C MP #### [address] [address] Calcium [Mass/Vol] 9.5 mg/dL Normal 8.6 - 10.3 [facility] Comment on above: Performed By: #### C MP #### [address] [address] Chloride [Moles/Vol] 100 mmol/L Normal 98 - 107 [facility] Comment on above: Performed By: #### C MP #### [address] [address] Creatinine [Mass/Vol] 2.09 mg/dL High 0.50 - 1.05 [facility] Comment on above: Performed By: #### C MP #### [address] [address] GFR/1.73 sq M.predicted among non-blacks MDRD (S/P/Bld) [Vol rate/Area] 24 mL/min/{1.73_m2} Abnormal >90 [facility] Comment on above: Result Comment: CALC ULATIONS OF ESTIMATED GFR ARE PERFORMED USING THE 2020 CKD-EPI STUDY REFIT EQUATION WITHOUT THE RACE VARIABLE FOR THE IDMS-TRACEABLE CREATININE METHODS. https://jasn.asnjournals.org/content/early//ASN.242938 0393 Performed By: #### C MP #### [address] [address] Glucose [Mass/Vol] 267 mg/dL High 74 - 99 [facility] Comment on above: Performed By: #### C MP #### [address] [address] HCO3 (Bld) [Moles/Vol] 26 mmol/L Normal 21 - 32 [facility] Comment on above: Performed By: #### C MP #### [address] [address] Potassium [Moles/Vol] 4.4 mmol/L Normal 3.5 - 5.3 [facility] Comment on above: Performed By: #### C MP #### [address] [address] Sodium [Moles/Vol] 134 mmol/L Low 136 - 145 [facility] Comment on above: Performed By: #### C MP #### [address] [address] Urea nitrogen [Mass/Vol] 33 mg/dL High 6 - 23 [facility] Comment on above: Performed By: #### C MP #### [address] [address] BNPon 12-12-2022 Natriuretic peptide B (Bld) [Mass/Vol] 309 pg/mL High 0 - 99 [facility] Comment on above: Result Comment: . <1 00 pg/mL - Heart failure unlikely 100-299 pg/mL - Intermediate probability of acute heart . failure exacerbation. Correlate with clinical . context and patient history. >=300 pg/mL - Heart Failure likely. Correlate with clinical . context and patient history. BNP testing is performed using different testing methodology at [facility] than at [facility]. Direct result comparisons should only be made within the same method. Performed By: #### G ROVERTO #### [address] [address] Narrative Note - Outpatient- Heart Failureon 12-12-2022 [...] Updated: 12-Dec-2022 10:09 by Juliana Calloway (RN) [facility] Established Visit (Pulmonary Medicine)on 12-10-2022 Established [...] is adequate. This will be done through [employer]. 2. Continue with the Trelegy?100 daily. 3. Recommend weight reduction. 4. Follow-up with the patient in 4 months. This note was transcribed using the [employer] Dictation system. There may be grammatical, punctuation, [...] was 83%. That study was done through [employer]. Patient denies any cough or sputum production [...] DIRECTED Colace 50 MG CAPSTAKE DIRECTED. Epogen 26861 UNIT/ML Injection SolutionINJECT SUBCUTANEOUSLY DIRECTED. Furosemide 20 [...] DAILY WITH FOOD. Vitals Vital Signs Recorded: [id number] 11:19AM Vqzejewmtob67.1 F, Temporal Heart Rate97 [id number] Seouyhdsd81 Height5 ft 3 in Ctnwar263 lb 6.4 oz BMI Itgbxgirww62.55 kg/m2 BSA Calculated2.19 Tobacco Useb) No Falls [...] Basophil percentage 2.2 mg/dL 2.5-4.9 [facility] Chloride [Moles/Vol] 108 mmol/L 98-107 [facility] Glucose [Mass/Vol] 179 mg/dL 74-106 [facility] Comment on above: Fasting Glucose resu lt greater than or equal to 126 mg/dL suggests DIABETES MELLITUS per A.D.A. criteria. Potassium [Moles/Vol] 4.4 mmol/L 3.5-5.1 [facility] Sodium [Moles/Vol] 138 mmol/L 136-145 [facility] Blood hemoglobin measurement (mass/volume)Ordered By: Peewee Louise on 12-07-2022 Hemoglobin (Bld) [Mass/Vol] 11.7 g/dL 12.0-15.0 [facility] Hematocrit Auto (Bld) [Volum e fraction]Ordered By: Peewee Louise on 12-07-2022 Hematocrit (Bld) [Volume fraction] 35.4 % 37-47 [facility] Laboratory - Chemistry and C hemistry - challengeOrdered By: Peewee Louise on 12-07-2022 CO2 [Moles/Vol] 24.0 mmol/L 21.0-32.0 [facility] Urea nitrogen/Creatinine [Mass ratio] 16.1 mg/mg 10-20 [facility] No Panel InformationOrdered By: Peewee Louise on 12-07-2022 Estimated GFR (MDRD) Amer 26 mL/min >60 [facility] Comment on above: GFR Calc Estimated GFR (MDRD) Non-Af Amer 22 mL/min >60 [facility] Comment on above: Non- GFR Calc Serum or plasma albumin jarrett urement (mass/volume)Ordered By: Peewee Louise on 12-07-2022 Albumin [Mass/Vol] 3.3 g/dL 3.2-5.0 [facility] Serum or plasma calcium jarrett urement (mass/volume)Ordered By: Peewee Louise on 12-07-2022 Calcium [Mass/Vol] 9.6 mg/dL 8.5-10.1 [facility] Serum or plasma creatinine m easurement (mass/volume)Ordered By: Peewee Louise on 12-07-2022 Creatinine [Mass/Vol] 2.30 mg/dL 0.55-1.02 [facility] Comment on above: The validity of the calculated GFR & GFRAA in patients over 70 years has not been determined. Clinical correlation is essential. Serum or plasma urea nitroge n measurement (mass/volume)Ordered By: Peewee Louise on 12-07-2022 Urea nitrogen [Mass/Vol] 37 mg/dL 7-18 [facility] Basophil percentageOrdered B y: Peewee Louise on 11-07-2022 Basophil percentage 3.0 mg/dL 2.5-4.9 [facility] Chloride [Moles/Vol] 104 mmol/L 98-107 [facility] Glucose [Mass/Vol] 184 mg/dL 74-106 [facility] Comment on above: Fasting Glucose resu lt greater than or equal to 126 mg/dL suggests DIABETES MELLITUS per A.D.A. criteria. Potassium [Moles/Vol] 4.0 mmol/L 3.5-5.1 [facility] Sodium [Moles/Vol] 138 mmol/L 136-145 [facility] Blood hemoglobin measurement (mass/volume)Ordered By: Peewee Louise on 11-07-2022 Hemoglobin (Bld) [Mass/Vol] 11.7 g/dL 12.0-15.0 [facility] Hematocrit Auto (Bld) [Volum e fraction]Ordered By: Peewee Louise on 11-07-2022 Hematocrit (Bld) [Volume fraction] 35.5 % 37-47 [facility] Laboratory - Chemistry and C hemistry - challengeOrdered By: Peewee Louise on 11-07-2022 CO2 [Moles/Vol] 25.0 mmol/L 21.0-32.0 [facility] Urea nitrogen/Creatinine [Mass ratio] 17.0 mg/mg 10-20 [facility] No Panel InformationOrdered By: Peewee Louise on 11-07-2022 Estimated GFR (MDRD) Amer 27 mL/min >60 [facility] Comment on above: GFR Calc Estimated GFR (MDRD) Non-Af Amer 22 mL/min >60 [facility] Comment on above: Non- GFR Calc Serum or plasma albumin jarrett urement (mass/volume)Ordered By: Peewee Louise on 11-07-2022 Albumin [Mass/Vol] 3.3 g/dL 3.2-5.0 [facility] Serum or plasma calcium jarrett urement (mass/volume)Ordered By: Peewee Louise on 11-07-2022 Calcium [Mass/Vol] 9.7 mg/dL 8.5-10.1 [facility] Serum or plasma creatinine m easurement (mass/volume)Ordered By: Peewee Louise on 11-07-2022 Creatinine [Mass/Vol] 2.29 mg/dL 0.55-1.02 [facility] Comment on above: The validity of the calculated GFR & GFRAA in patients over 70 years has not been determined. Clinical correlation is essential. Serum or plasma urea nitroge n measurement (mass/volume)Ordered By: Peewee Louise on 11-07-2022 Urea nitrogen [Mass/Vol] 39 mg/dL 7-18 [facility] Basophil percentageOrdered B y: Peewee Louise on 10-12-2022 Basophil percentage 3.8 mg/dL 2.5-4.9 [facility] Chloride [Moles/Vol] 98 mmol/L 98-107 [facility] Glucose [Mass/Vol] 181 mg/dL 74-106 [facility] Comment on above: Fasting Glucose resu lt greater than or equal to 126 mg/dL suggests DIABETES MELLITUS per A.D.A. criteria. Potassium [Moles/Vol] 4.2 mmol/L 3.5-5.1 [facility] Sodium [Moles/Vol] 135 mmol/L 136-145 [facility] WBC (Bld) [#/Vol] 7.4 10*3/uL 4.4-11.0 [facility] Blood erythrocytes count (nu mber/volume)Ordered By: Peewee Louise on 10-12-2022 RBC (Bld) [#/Vol] 3.44 10*6/uL 4.2-5.4 [facility] Blood hemoglobin measurement (mass/volume)Ordered By: Peewee Louise on 10-12-2022 Hemoglobin (Bld) [Mass/Vol] 11.1 g/dL 12.0-15.0 [facility] Blood platelet mean volumeOr dered By: Peewee Louise on 10-12-2022 Platelet mean volume (Bld) [Entitic vol] 9.6 fL 6.2-12.0 [facility] Determination of erythrocyte mean corpuscular volume (MCV)Ordered By: Peewee Louise on 10-12-2022 MCV (RBC) [Entitic vol] 98.0 fL 81-99 [facility] Hematocrit Auto (Bld) [Volum e fraction]Ordered By: Peewee Louise on 10-12-2022 Hematocrit (Bld) [Volume fraction] 33.7 % 37-47 [facility] Iron measurement (mass/mass) Ordered By: Peewee Louise on 10-12-2022 Iron (Unsp spec) [Mass/Mass] 89 ug/dL 50-170 [facility] Laboratory - Chemistry and C hemistry - challengeOrdered By: Peewee Louise on 10-12-2022 CO2 [Moles/Vol] 29.0 mmol/L 21.0-32.0 [facility] Urea nitrogen/Creatinine [Mass ratio] 19.1 mg/mg 10-20 [facility] Laboratory - Hematology and Cell countsOrdered By: Peewee Louise on 10-12-2022 Erythrocyte distribution width (RBC) [Entitic vol] 48.8 fL 35.1-43.9 [facility] Erythrocyte distribution width (RBC) [Ratio] 13.7 % 11.6-14.6 [facility] MCH (RBC) [Entitic mass] 32.3 pg 27.0-32.0 [facility] MCHC Auto (RBC) [Mass/Vol]Or dered By: Peewee Louise on 10-12-2022 MCHC (RBC) [Mass/Vol] 32.9 g/dL 32-36 [facility] No Panel InformationOrdered By: Peewee Louise on 10-12-2022 Estimated GFR (MDRD) Amer 23 mL/min >60 [facility] Comment on above: GFR Calc Estimated GFR (MDRD) Non-Af Amer 19 mL/min >60 [facility] Comment on above: Non- GFR Calc Parathyroid Hormone (Intact) 16.9 pg/mL 18.4-80.1 [facility] Total Iron Binding Capacity 285 ug/dL 250-450 [facility] Vitamin D 25-Hydroxy 37.7 ng/mL [facility] Comment on above: Vitamin D 25(OH) Sta tus Range Deficiency <20 ng/mL (50nmol/L) Insufficiency 20 - 30 ng/mL (50 - 75 nmol/L) Sufficiency 30 - 100 ng/mL (75 - 250 nmol/L) Toxicity >100 ng/mL (>250 nmol/L) Platelets bldOrdered By: Elpidio Louise on 10-12-2022 Platelets (Bld) [#/Vol] 151 10*3/uL 150-450 [facility] Serum or plasma albumin jarrett urement (mass/volume)Ordered By: Peewee Louise on 10-12-2022 Albumin [Mass/Vol] 3.2 g/dL 3.2-5.0 [facility] Serum or plasma calcium jarrett urement (mass/volume)Ordered By: Peewee Louise on 10-12-2022 Calcium [Mass/Vol] 10.5 mg/dL 8.5-10.1 [facility] Serum or plasma creatinine m easurement (mass/volume)Ordered By: Peewee Louise on 10-12-2022 Creatinine [Mass/Vol] 2.56 mg/dL 0.55-1.02 [facility] Comment on above: The validity of the calculated GFR & GFRAA in patients over 70 years has not been determined. Clinical correlation is essential. Serum or plasma ferritin bubba surement (mass/volume)Ordered By: Peewee Louise on 10-12-2022 Ferritin [Mass/Vol] 125 ng/mL 8-252 [facility] Serum or plasma iron saturat ion measurement (mass fraction)Ordered By: Peewee Louise on 10-12-2022 Iron saturation [Mass fraction] 31.2 % 15.0-55.0 [facility] Serum or plasma urea nitroge n measurement (mass/volume)Ordered By: Peewee Louise on 10-12-2022 Urea nitrogen [Mass/Vol] 49 mg/dL 7-18 [facility] Urine creatinine measurement (mass/volume)Ordered By: Peewee Louise on 10-12-2022 Creatinine (U) [Mass/Vol] 27.70 mg/dL NO RANGE EST. [facility] Urine protein measurement (m ass/volume)Ordered By: Peewee Louise on 10-12-2022 Protein (U) [Mass/Vol] 16.5 mg/dL 0.0-11.8 [facility] Urine protein/creatinine mas s ratioOrdered By: Peewee Louise on 10-12-2022 Protein/Creatinine (U) [Mass ratio] 596 mg/g CRE 0-200 [facility] Height or Weight NOT Doneon 10-11-2022 Fall risk assessment a) No falls within the last year -Cardiology -[place] [address] [facility] Work Phone: Tobacco use status [facility] b) No -Cardiology -[place] [address] [facility] Work Phone: BASIC METABOLIC PANELon 09-16 Anion gap [Moles/Vol] 15 mmol/L Normal 10 - 20 [facility] Comment on above: Performed By: #### C BC #### [address] [address] Calcium [Mass/Vol] 10.5 mg/dL High 8.6 - 10.3 [facility] Comment on above: Performed By: #### C BC #### [address] [address] Chloride [Moles/Vol] 102 mmol/L Normal 98 - 107 [facility] Comment on above: Performed By: #### C BC #### [address] [address] Creatinine [Mass/Vol] 2.38 mg/dL High 0.50 - 1.05 [facility] Comment on above: Performed By: #### C BC #### [address] [address] GFR/1.73 sq M.predicted among non-blacks MDRD (S/P/Bld) [Vol rate/Area] 20 mL/min/{1.73_m2} Abnormal >90 [facility] Comment on above: Result Comment: CALC ULATIONS OF ESTIMATED GFR ARE PERFORMED USING THE 2020 CKD-EPI STUDY REFIT EQUATION WITHOUT THE RACE VARIABLE FOR THE IDMS-TRACEABLE CREATININE METHODS. https://alansn.asnjournals.org/content//ASN.520406 2345 Performed By: #### C BC #### [address] [address] Glucose [Mass/Vol] 146 mg/dL High 74 - 99 [facility] Comment on above: Performed By: #### C BC #### [address] [address] HCO3 (Bld) [Moles/Vol] 24 mmol/L Normal 21 - 32 [facility] Comment on above: Performed By: #### C BC #### [address] [address] Potassium [Moles/Vol] 4.7 mmol/L Normal 3.5 - 5.3 [facility] Comment on above: Performed By: #### C BC #### [address] [address] Sodium [Moles/Vol] 136 mmol/L Normal 136 - 145 [facility] Comment on above: Performed By: #### C BC #### [address] [address] Urea nitrogen [Mass/Vol] 46 mg/dL High 6 - 23 [facility] Comment on above: Performed By: #### C BC #### [address] [address] Laboratory - Chemistry and C hemistry - challengeon 10-09-2022 Anion gap [Moles/Vol] 15 mmol/L 10 - 20 - Cardiology [place] [address] [facility] Work Phone: Calcium [Mass/Vol] 10.5 mg/dL above high threshold 8.6 - 10.3 -Cardiology [place] [address] [address] Work Phone: Chloride [Moles/Vol] 102 mmol/L 98 - 107 -C ardiology -[place] [address] [facility] Work Phone: CO2 [Moles/Vol] 24 mmol/L 21 - 32 -Cardio logy [place] [address] [facility] Work Phone: Creatinine [Mass/Vol] 2.38 mg/dL above high threshold See Below -Cardiology [place] [address] [place] [employer] Work Phone: Comment on above: Reference Range: 0.5 0 - 1.05 Glucose [Mass/Vol] 146 mg/dL above high threshold 74 - 99 MP-Cardiology -[place] [employer] Work Phone: Potassium [Moles/Vol] 4.7 mmol/L 3.5 - 5.3 MP- Cardiology -[place] [address] [facility] Work Phone: Sodium [Moles/Vol] 136 mmol/L 136 - 145 [facility]-Car diology -[place] [employer] Work Phone: Urea nitrogen [Mass/Vol] 46 mg/dL above high threshold 6 - 23 MP-Cardiology [place] [address] [facility] Work Phone: Narrative Note - Outpatient- Heart [...] Last Updated: 09-Oct-2022 15:22 by Juliana Calloway) [facility] No Panel Informationon 10-09 20 {mL/min/1.73m2} Abnormal >90 MP-Car diology -[place] [employer] Work Phone: Comment on above: CALCULATIONS OF TE MATED GFR ARE PERFORMED USING THE 2020 CKD-EPI STUDY REFIT EQUATION WITHOUT THE RACE VARIABLE FOR THE IDMS-TRACEABLE CREATININE METHODS.https://jasn.asnjournals.org/content/early/ N.7676144335 Cardiac echo study Procedure on 10-04-2022 [facility], [address] [facility] [address] [phone] and TRANSTHORACIC ECHOCARDIOGRAM REPORT Patient Name: VAL ERICKSON Reading Physician: [id number] Claudio Quinn MD Study Date: 10/04/2022 Referring Physician: Aldo Diaz MRN/PID: [id number] PCP: Accession/Order#: [id number] Department Location: [facility] Date of : 1945 Fellow: Gender: F Nurse: Admit Date: Hazmat Cdl A Driver: Vera Ortega JOSEPH Admission Status: Inpatient - Additional Staff: Routine Height: 160.02 cm CC Report to: Weight: 117.94 kg Study Type: Echocardiogram BSA: 2.16 m2 Blood Pressure: 121 /58 mmHg Diagnosis/ICD: I31.39-Other pericardial effusion (noninflammatory) Indication: S/P Defibrillator Procedure/CPT: Echo Limited-27468; Doppler Limited-34672; Color Doppler-[id number] Patient History: Pacer/Defib: AICD Pertinent CHF, Hyperlipidemia [...] RV Syst Pressure: 22.9 mmHg (< 30mmHg) [id number] Claudio Quinn MD Electronically signed on 10/04/2022 at 10:51:37 AM Final Claudio Bobby MD PhD - 10/04/2022 [facility], [address] [place] [id number] [phone] and TRANSTHORACIC ECHOCARDIOGRAM REPORT Patient Name: VAL Heidi ERICKSON Reading Physician: [id number] Claudio Quinn MD Study Date: 10/04/2022 Referring Physician: Aldo Diaz MRN/PID: [id number] PCP: Accession/Order#: [id number] Department Location: [facility] Date of : 1945 Fellow: Gender: F Nurse: Admit Date: Hazmat Cdl A Driver: Vera Ortega RDCS Admission Status: Inpatient - Additional Staff: Routine Height: 160.02 cm CC Report to: Weight: 117.94 kg Study Type: Echocardiogram BSA: 2.16 m2 Blood Pressure: 121 /58 mmHg Diagnosis/ICD: I31.39-Other pericardial effusion (noninflammatory) Indication: S/P Defibrillator Procedure/CPT: Echo Limited-73736; Doppler Limited-58459; Color Doppler-67824 Patient History: Pacer/Defib: AICD Pertinent CHF, Hyperlipidemia [...] RV Syst Pressure: 22.9 mmHg (< 30mmHg) [id number] Claudio Quinn MD Electronically signed on 10/04/2022 at 10:51:37 AM Final [facility] Work Phone: Cardiac echo study Procedure Ordered By: Claudio Quinn on 10-04-2022 [facility] Work Phone: Discharge Planning [id number] 10-04-2022 Discharge Planning Note2 Discharge Planning: Discharge Barriersnone Planned Dispositionhome Anticipated Discharge [id number] Discharge Planning 10/04/22 0934 (remote coverage from [facility]) Pt is here under OP extended stay [...] again later. Samantha Huerta RN, BSN, Transitional [employer], ([id number]), , DOC HALO 1427 TCC attempted to call pt again, but no answer. Will attempt again later. SYLVAIN Govea/ Josh 1540 TCC attempted to call pt again, no answer. Charisse Lozano RN TCC/ DocHalo Assessment: Discharge Planning Assessment [id number] Lives Withalone(1) Living Arrangementsapartment(1) Stated Reason for AdmissionPacemaker(1) [place] Resource/Environmental Concernsnone(1) Anticipated Transition [place](1) Services Anticipated at Transitionnon(1) Discharge Documentation: Discharge/Transfer Date/[id number] 15:11 Discharged Accompanied Byfamily member Transportation Methodprivate car Discharge Modewheelchair Code StatusCode Status order at time of discharge: Full Code Discharge Order Writtenyes [place] DNR Form Sent with Patient and/or Familyn/a Final Disposition.Home Electronic Signatures: Samantha Huerta (SYLVAIN) (Signed 04-Oct-2022 11:26) Authored: Discharge Planning, Assessment, Discharge Documentation Marilu Perea) (Signed 04-Oct-2022 15:33) Authored: Discharge Planning, Discharge Documentation Charisse Lozano) (Signed 04-Oct-2022 15:40) Authored: Discharge Planning, Discharge Documentation Last Updated: 04-Oct-2022 15:40 by Charisse Lozano (RN) References: 1. Data Referenced From Patient Profile - Adult v2 03-Oct-2022 18:12 Normal [facility] Discharge [id number] 023 Discharge Profile2 Discharge Orders: Anticipated Discharge Date: Anticipated Discharge [id number] Problem List: Medical History: Status post implantation [...] Orders Completedby DAHLIA Reviewing ProviderWhjose j Diaz APRN-TECHNICAL STAFF ENGINEER at 04-Oct-2022 08:13:02 Other Clinician Instructions: Other [...] 10/11/22 at 11:00 AM as scheduled - [facility] [address] [place] [address] - . Electronic Signatures: Aldo Diaz (TIRE REPAIRMAN-TECHNICAL STAFF ENGINEER) (Signed 04-Oct-2022 08:13) Authored: Discharge Orders, Provider FINAL REVIEW of Orders, Other Clinician Instructions, 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 Last Updated: 04-Oct-2022 08:13 by Aldo Diaz (TIRE REPAIRMAN-TECHNICAL STAFF ENGINEER) Normal [facility] Echocardiogramon 10-04-2022 Echocardiography [facility] , [address] [facility] [place], [place] [address]Ayx [phone] and TRANSTHORACIC ECHOCARDIOGRAM REPORT Patient Name: VAL ERICKSON Reading Physician: [id number] Claudio Quinn MD Study Date: 10/04/2022 Referring Physician: Aldo Diaz MRN/PID: [id number] PCP: Accession/Order#: [id number] Department Location: [facility] Date of : 1945 Fellow: Gender: F Nurse: Admit Date: Hazmat Cdl A Driver: Vera Ortega JOSEPH Admission Status: Inpatient - Additional Staff: Routine Height: 160.02 cm CC Report to: Weight: 117.94 kg Study Type: Echocardiogram BSA: 2.16 m2 Blood Pressure: 121 /58 mmHg Diagnosis/ICD: I31.39-Other pericardial effusion (noninflammatory) Indication: S/P Defibrillator Procedure/CPT: Echo Limited-31917; Doppler Limited-52016; Color Doppler-84889 Patient History: Pacer/Defib: AICD Pertinent CHF, Hyperlipidemia [...] RV Syst Pressure: 22.9 mmHg (< 30mmHg) [id number] Claudio Quinn MD Electronically signed on 10/04/2022 at 10:51:37 AM Final Normal [facility] GLUCOSE-POCTon 10-04-2022 Glucose [Mass/Vol] 245 mg/dL High 74 - 99 [facility] Comment on above: Performed By: #### G ROVERTO #### [facility] [address] [place] [address] Glucose [Mass/Vol] 137 mg/dL High 74 - 99 [facility] Comment on above: Performed By: #### G ROVERTO ####[facility] [place] [address] Glucose Test strip manual (B ld) [Mass/Vol]on 10-04-2022 Glucose [Mass/Vol] 245 mg/dL High 74 - 99 mg/dL [facility] Interpretation and review of laboratory results Abnormal [facility] Glucose [Mass/Vol] 137 mg/dL High 74 - 99 mg/dL [facility] Interpretation and review of laboratory results Abnormal [facility] Laboratory - Chemistry and C hemistry - challengeon 10-04-2022 Glucose [Mass/Vol] 245 mg/dL above high threshold 74 - 99 [facility] [address] [employer] Work Phone: Glucose [Mass/Vol] 137 mg/dL above high threshold 74 - 99 [facility] [address] [employer] Work Phone: Order Reconciliationon 10-04 Order Reconciliation Page 1 Discharge Reconciliation Document Reconciliation Type: Discharge requested on behalf of Aldo Diaz (Advanced Practice Nurse) done by Aldo Diaz (TIRE REPAIRMAN-[facility]) Discharge - Reconciliation: 04-Oct-2022 10:53 by: Aldo Diaz (TIRE REPAIRMAN-[facility]) Home Medications EnteredHOME MEDICATIONS AT DISCHARGE [...] IV ac (more content not included)... Normal [facility] Radiologyon 10-04-2022 XR Chest 2 Views Normal -[address] Work Phone: XR chest 2 viewon 10-04-2022 Features of mild congestion/pulmonary edema noted, appears slightly worse from previous study. [facility] EMERGENCY DEPARTMENT RADIOLOGY SYSTEM Interpreted By: [facility] MAXX WINTERS MD Patient Name: VAL ERICKSON STUDY: TH CHEST 2 VIEW PA AND LAT; ; 10/04/2022 9:20 am INDICATION: Pneumothorax . COMPARISON: 04/16/2022, ACCESSION NUMBER(S): [id number] ORDERING CLINICIAN: ALDO DIAZ TECHNIQUE: Chest PA and lateral view. FINDINGS: Left-sided AICD noted. Mildly prominent cardiac silhouette. Minimal interstitial prominence in the lungs. Mild degenerative changes in thoracic spine. Moderate dextroscoliosis noted. [facility] EMERGENCY DEPARTMENT RADIOLOGY SYSTEM Maxx Johns M D - 10/04/2022 Interpreted By: MAXX JOHNS MD Patient Name: VAL ERICKSON STUDY: TH CHEST 2 VIEW PA AND LAT; ; 10/04/2022 9:20 am INDICATION: Pneumothorax . COMPARISON: 04/16/2022, ACCESSION NUMBER(S): [id number] ORDERING CLINICIAN: ALDO DIAZ TECHNIQUE: Chest PA and lateral view. FINDINGS: Left-sided AICD noted. Mildly prominent cardiac silhouette. Minimal interstitial prominence in the lungs. Mild degenerative changes in thoracic spine. Moderate dextroscoliosis noted. IMPRESSION: Features of mild congestion/pulmonary edema noted, appears slightly worse from previous study. [facility] Work Phone: Radiology Study observation (narrative) [facility] Work Phone: XR chest 2 viewOrdered By: Sophia Johns on 10-04-2022 [facility] Work Phone: Admission Risk Screen - Adul [...] AlertFor Ebola-like Symptoms: Isolate Patient and Notify Provider/Agriculture Professor For Contact: Notify Provider/Agriculture Professor Advance Directive: Advance Directive/DNRyes Advance Directive typeLiving Will, Durable Power of Appeals Representative for Healthcare Living Will AvailabilityLiving Will not available now Living Will [id number] Durable Power of Appeals Representative AvailabilityDPOA not available now Durable Power of Appeals Representative [id number] Durable Power of Appeals Representative contact (name and number)Rd Erickson (Son) Advanced [...] had any thoughts of harming anyone elseno [place] Suicide: Risk Screen Not Applicable/Able to Answerable to be screened In the Past Month: Have you wished you were or could go to sleep and not wake upno In the Past Month: Have you had any actual thoughts of killing yourselfno Lifetime: Have you ever done, started to do, or prepared to do anything to end your lifeno [place] Suicide Risknegative Adult Nutrition Screen: Have you [...] any cultu (more content not included)... Normal [facility] GLUCOSE-POCTon 10-03-2022 Glucose [Mass/Vol] 238 mg/dL High 74 - 99 [facility] Comment on above: Performed By: #### G ROVERTO ####[facility] [place] [address] Glucose [Mass/Vol] 139 mg/dL High 74 - 99 [facility] Comment on above: Performed By: #### G ROVERTO #### [facility] [address] [place] [address] Glucose [Mass/Vol] 169 mg/dL High 74 - 99 [facility] Comment on above: Performed By: #### G ROVERTO #### [facility] [address] [place] [address] Glucose Test strip manual (B ld) [Mass/Vol]on 10-03-2022 Glucose [Mass/Vol] 238 mg/dL High 74 - 99 mg/dL [facility] Interpretation and review of laboratory results Abnormal [facility] Glucose [Mass/Vol] 139 mg/dL High 74 - 99 mg/dL [facility] Interpretation and review of laboratory results Abnormal [facility] Glucose [Mass/Vol] 169 mg/dL High 74 - 99 mg/dL [facility] Interpretation and review of laboratory results Abnormal [facility] Laboratory - Chemistry and C hemistry - challengeon 10-03-2022 Glucose [Mass/Vol] 238 mg/dL above high threshold 74 - 99 [facility] Work Phone: Glucose [Mass/Vol] 139 mg/dL above high threshold 74 - 99 [facility] Work Phone: Laboratory - Coagulationon 0 10-03-2022 INR Coag (PPP) [Relative time] 1.0 {INR} 0.9 - 1.1 [facility] Work Phone: PT Coag (PPP) [Time] 11.7 s 9.8 - 12.8 [facility] Work Phone: Comment on above: Note new reference liliana mcconnell as of 09/04/2022 at 10:00am. Order Reconciliationon 10-03 Order Reconciliation Page 1 Admission Reconciliation Document Reconciliation Type: Admission requested on behalf of Aldo Diaz (Advanced Practice Nurse) done by Aldo Diaz (TIRE REPAIRMAN-TECHNICAL STAFF ENGINEER) Admission - Reconciliation: 03-Oct-2022 14:04 by: Aldo Diaz (TIRE REPAIRMAN-TECHNICAL STAFF ENGINEER) Home MedicationsEnteredLast Dose TakenReconciled with current Order Reconciliation Comment/ Additional Information calcitriol 0.5 mcg oral capsule 1 cap(s) orally once a [id number]-Oct-2022 AM Calcitriol Capsule (ROCALTROL)DOSE = 0.5 microgram(s) Oral Dailycalcitriol 0.5 mcg oral capsule continued as the inpatient order Calcitriol Colace 100 mg oral capsule 1 cap(s) orally once a [id number] UNKNOWN Docusate Capsule (COLACE)DOSE = 100 mg Oral DailyColace 100 mg oral capsule continued as the inpatient order Docusate Epogen 10,000 units/mL preservative-free injectable solution 1.3 milliliter(s) injectable every 28 [id number] UNKNOWN Reviewed and Held furosemide 20 mg oral tablet 1 tab(s) orally once a [id number] 3 AM Furosemide Tablet (LASIX)DOSE = 20 mg Oral Dailyfurosemide 20 mg oral tablet continued as the inpatient order Furosemide gabapentin 300 mg oral capsule 1 cap(s) orally 2 times a [id number]-Oct-2022 AM Gabapentin CapsuleDOSE = 300 mg Oral 2 Times a Daygabapentin 300 mg oral capsule continued as the inpatient order Gabapentin HumaLOG KwikPen 100 units/mL injectable solution sliding [id number]-Oct-2022 PM Communication Order Every 15 Minutes, PRN, [...] HumaLOG KwikPen 100 units/mL injectable solution sliding [id number]-Oct-2022 PM Blood Glucose POCT Once, PRN for [...] HumaLOG KwikPen 100 units/mL injectable solution sliding [id number]-[id number]-Oct-2022 PM Education, Diabetes Self Management Educational materials [...] 100 un (more content not included)... Normal [facility] PT Coag (PPP) [Time]on 10-03 INR Coag (PPP) [Relative time] 1.0 {INR} 0.9 - 1.1 [facility] PT/INRon 10-03-2022 PT Coag (PPP) [Time] 11.7 s Normal 9.8 - 12.8 [facility] Comment on above: Result Comment: Note new reference range as of 09/04/2022 at 10:00am. Performed By: #### P TINR #### [facility] [address] [place] [address] PT, INR 1.0 Normal 0.9 - 1.1 [facility] Comment on above: Performed By: #### P TINR #### [facility] [address] [place] [address] Patient Profile - Adult v2on 10-03-2022 Patient Profile - Adult v2 Profile: Initial Info: How to be AddressedJudy(1) Spoken Language PreferredEnglish (1) Stated Reason for AdmissionPacemaker Wants Family/Rep Notified of Admissionn/a; family present Notify PCPnotify PCP Informed of Patient [place] Bel[place]ingsnone; remains with patient Patient Belongings Remaining with Patientclothing; vision aids Medications Brought to Hospitalno General Health: Blood Avoidance/Restrictionsno ne(2) Weight in kg118 kilogram(s)(3) Weight in skq433.1 pound(s) Weight Methodactual (measured) (3) Scale Typestanding [...] From 1. Vital Signs 03-Oct-2022 13:01 Normal [facility] Protime-INRon 10-03-2022 PT Coag (PPP) [Time] 11.7 s [facility] Comment on above: Note new reference liliana mcconnell as of 09/04/2022 at 10:00am. Basophil percentageOrdered B y: Peewee Louise on 09-14-2022 Basophil percentage 3.0 mg/dL 2.5-4.9 [facility] Chloride [Moles/Vol] 101 mmol/L 98-107 [facility] Glucose [Mass/Vol] 267 mg/dL 74-106 [facility] Comment on above: Glucose result great er than or equal to 200 mg/dLsuggests DIABETES MELLITUS per A.D.A. criteria. Potassium [Moles/Vol] 4.5 mmol/L 3.5-5.1 [facility] Sodium [Moles/Vol] 134 mmol/L 136-145 [facility] Blood hemoglobin measurement (mass/volume)Ordered By: Peewee Louise on 09-14-2022 Hemoglobin (Bld) [Mass/Vol] 12.0 g/dL 12.0-15.0 [facility] Hematocrit Auto (Bld) [Volum e fraction]Ordered By: Peewee Louise on 09-14-2022 Hematocrit (Bld) [Volume fraction] 36.3 % 37-47 [facility] Laboratory - Chemistry and C hemistry - challengeOrdered By: Peewee Louise on 09-14-2022 CO2 [Moles/Vol] 26.0 mmol/L 21.0-32.0 [facility] Urea nitrogen/Creatinine [Mass ratio] 21.1 mg/mg 10-20 [facility] No Panel InformationOrdered By: Peewee Louise on 09-14-2022 Estimated GFR (MDRD) Amer 24 mL/min >60 [facility] Comment on above: GFR Calc Estimated GFR (MDRD) Non-Af Amer 20 mL/min >60 [facility] Comment on above: Non- GFR Calc Serum or plasma albumin jarrett urement (mass/volume)Ordered By: Peewee Louise on 09-14-2022 Albumin [Mass/Vol] 3.4 g/dL 3.2-5.0 [facility] Serum or plasma calcium jarrett urement (mass/volume)Ordered By: Peewee Louise on 09-14-2022 Calcium [Mass/Vol] 10.3 mg/dL 8.5-10.1 [facility] Serum or plasma creatinine m easurement (mass/volume)Ordered By: Peewee Louise on 09-14-2022 Creatinine [Mass/Vol] 2.51 mg/dL 0.55-1.02 [facility] Comment on above: The validity of the calculated GFR & GFRAA in patients over 70 years has not been determined. Clinical correlation is essential. Serum or plasma urea nitroge n measurement (mass/volume)Ordered By: Peewee Louise on 09-14-2022 Urea nitrogen [Mass/Vol] 53 mg/dL - [facility] BASIC METABOLIC PANELon Anion gap [Moles/Vol] 16 mmol/L Normal 10 - 20 [facility] Comment on above: Performed By: #### C BC #### [address] [address] Calcium [Mass/Vol] 10.3 mg/dL Normal 8.6 - 10.3 [facility] Comment on above: Performed By: #### C BC #### [address] [address] Chloride [Moles/Vol] 99 mmol/L Normal 98 - 107 [facility] Comment on above: Performed By: #### C BC #### [address] [address] Creatinine [Mass/Vol] 2.23 mg/dL High 0.50 - 1.05 [facility] Comment on above: Performed By: #### C BC #### [address] [address] GFR/1.73 sq M.predicted among non-blacks MDRD (S/P/Bld) [Vol rate/Area] 22 mL/min/{1.73_m2} Abnormal >90 [facility] Comment on above: Result Comment: CALC ULATIONS OF ESTIMATED GFR ARE PERFORMED USING THE 2020 CKD-EPI STUDY REFIT EQUATION WITHOUT THE RACE VARIABLE FOR THE IDMS-TRACEABLE CREATININE METHODS. https://jasn.asnjournals.org/content//ASN.565413 3465 Performed By: #### C BC #### [address] [address] Glucose [Mass/Vol] 317 mg/dL High 74 - 99 [facility] Comment on above: Performed By: #### C BC #### [address] [address] HCO3 (Bld) [Moles/Vol] 24 mmol/L Normal 21 - 32 [facility] Comment on above: Performed By: #### C BC #### [address] [address] Potassium [Moles/Vol] 4.5 mmol/L Normal 3.5 - 5.3 [facility] Comment on above: Performed By: #### C BC #### [address] [address] Sodium [Moles/Vol] 134 mmol/L Low 136 - 145 [facility] Comment on above: Performed By: #### C BC #### [address] [address] Urea nitrogen [Mass/Vol] 42 mg/dL High 6 - 23 [facility] Comment on above: Performed By: #### C BC #### [address] [address] Narrative Note - Outpatient- Heart Failureon 08-21-2022 [...] have a pacemaker / defibrillator placed in [place] on October 03. A BMP was drawn [...] 21-Aug-2022 11:49 by Macho Pierre (SYLVAIN) Normal [facility] Basophil percentageOrdered B y: Dr. Louise on 08-15-2022 Basophil percentage 2.6 mg/dL 2.5-4.9 [facility] Chloride [Moles/Vol] 102 mmol/L 98-107 [facility] Glucose [Mass/Vol] 238 mg/dL 74-106 [facility] Comment on above: Glucose result great er than or equal to 200 mg/dLsuggests DIABETES MELLITUS per A.D.A. criteria. Potassium [Moles/Vol] 4.3 mmol/L 3.5-5.1 [facility] Sodium [Moles/Vol] 136 mmol/L 136-145 [facility] Blood hemoglobin measurement (mass/volume)Ordered By: Dr. Louise on 08-15-2022 Hemoglobin (Bld) [Mass/Vol] 12.1 g/dL 12.0-15.0 [facility] Hematocrit Auto (Bld) [Volum e fraction]Ordered By: Dr. Louise on 08-15-2022 Hematocrit (Bld) [Volume fraction] 36.6 % 37-47 [facility] Laboratory - Chemistry and C hemistry - challengeOrdered By: Dr. Louise on 08-15-2022 CO2 [Moles/Vol] 25.0 mmol/L 21.0-32.0 [facility] Urea nitrogen/Creatinine [Mass ratio] 16.6 mg/mg 10-20 [facility] No Panel InformationOrdered By: Dr. Louise on 08-15-2022 Estimated GFR (MDRD) Amer 25 mL/min >60 [facility] Comment on above: GFR Calc Estimated GFR (MDRD) Non-Af Amer 21 mL/min >60 [facility] Comment on above: Non- GFR Calc Serum or plasma albumin jarrett urement (mass/volume)Ordered By: Dr. Louise on 08-15-2022 Albumin [Mass/Vol] 3.3 g/dL 3.2-5.0 [facility] Serum or plasma calcium jarertt urement (mass/volume)Ordered By: Dr. Louise on 08-15-2022 Calcium [Mass/Vol] 10.4 mg/dL 8.5-10.1 [facility] Serum or plasma creatinine m easurement (mass/volume)Ordered By: Dr. Louise on 08-15-2022 Creatinine [Mass/Vol] 2.41 mg/dL 0.55-1.02 [facility] Comment on above: The validity of the calculated GFR & GFRAA in patients over 70 years has not been determined. Clinical correlation is essential. Serum or plasma urea nitroge n measurement (mass/volume)Ordered By: Dr. Louise on 08-15-2022 Urea nitrogen [Mass/Vol] 40 mg/dL 7-18 [facility] Whole blood hemoglobin A1c/t otal hemoglobin ratio (mass fraction)Ordered By: Kacy Older on 08-15-2022 HbA1c (Bld) [Mass fraction] 11.6 % 3.8-5.6 [facility] Comment on above: Normal < 5.7 [...] DIRECTED Colace 50 MG CAPSTAKE DIRECTED. Epogen 50694 UNIT/ML Injection SolutionINJECT SUBCUTANEOUSLY DIRECTED. Furosemide 20 [...] AICD check. discuss defibulator History of Present Pqfqobm09-fahb-rfh female with history of DM, neuropathy, HLD, HTN who is being referred by primary inspector fabric for evaluation for primary prevention ICD. Active [...] DIRECTED Colace 50 MG CAPSTAKE DIRECTED. Epogen 12307 UNIT/ML Injection SolutionINJECT SUBCUTANEOUSLY DIRECTED. Furosemide 20 [...] will (V49.89) (Z78.9) Vitals Vital Signs Recorded: [id number] 03:16PM Heart Rate88 Sjisfxvp93 Fsdtsvrpz93 Height5 ft 3 in Zudkyc336 lb BMI Aqqqomsbzw01.17 kg/m2 BSA Calculated2.14 Tobacco Useb) No Falls Screening (Age 18+)a) No falls within the last year O2 Wefvrmcwxc54 Physical Exam Constitutional: Well developed, obese, awake/alert/oriented [...] LBBB 130ms pt is a candidate for GLUE MAKER-D - Pt has old left sided mediport in place, since pt has no need for HD or chemotherapy, will consult with Dr. Lloyd about removing the Mediport. If it is not able to be removed then plan for Right sided GLUE MAKER-D placement - I used the [employer] Program for Patient Centered Decisions tool to discuss the Risks and Benefits of an Implantable Cardioverter Defibrillator implantation during my discussion with the patient. I gave the patient the document for their review. # Pre-procedure Planning - Procedure Type: GLUE MAKER-D - [employer] - Planned Date: [] - [] - Anesthesia Needed: Moderate Sedation - Anticoagulation: None - Other medication changes needed for procedure: Hold Medications morning of procedure - Contrast allergy? None - Imaging needed? None - Blood work to be ordered CBC and BMP within 30 days of procedure RTC in 2 months post pro (more content not included)... Normal [employer] Tobacco Screening.on 023 Fall risk assessment a) No falls within the last year -Nephrology [facility] Víctor 3 DO Work Phone: Tobacco use status CP b) No -Nephrology [facility] V[address]ctor 3 DO Work Phone: Established Visit [...] on exertion; YOSHI = N; Sent To: [employer] HOME DELIVERY; Last Updated By: Leticia Lopez; [...] day. This note was transcribed using the [employer] Dictation system. There may be grammatical, punctuation, [...] DIRECTED Colace 50 MG CAPSTAKE DIRECTED. Epogen 33023 UNIT/ML Injection SolutionINJECT SUBCUTANEOUSLY DIRECTED. Furosemide 20 [...] FOOD. Vitals Vital Signs Recorded: 06Aug2022 11:03AM Jamhslczrnb46.5 F, Temporal Heart Rate88 Sys (more content not included)... Normal [employer] Tobacco Screening.on 023 Fall risk assessment a) No falls within the last year [facility]ctor 3 DO Work Phone: Tobacco use status [facility] b) No [facility] Work Phone: Basophil percentageOrdered B y: Dr. Louise on 07-20-2022 Basophil percentage 3.4 mg/dL 2.5-4.9 [facility] Chloride [Moles/Vol] 101 mmol/L 98-107 [facility] Glucose [Mass/Vol] 313 mg/dL 74-106 [facility] Comment on above: Glucose result great er than or equal to 200 mg/dLsuggests DIABETES MELLITUS per A.D.A. criteria. Potassium [Moles/Vol] 4.4 mmol/L 3.5-5.1 [facility] Sodium [Moles/Vol] 138 mmol/L 136-145 [facility] Blood hemoglobin measurement (mass/volume)Ordered By: Dr. Louise on 07-20-2022 Hemoglobin (Bld) [Mass/Vol] 11.6 g/dL 12.0-15.0 [facility] Hematocrit Auto (Bld) [Volum e fraction]Ordered By: Dr. Louise on 07-20-2022 Hematocrit (Bld) [Volume fraction] 36.1 % 37-47 [facility] Iron measurement (mass/mass) Ordered By: Dr. Louise on 07-20-2022 Iron (Unsp spec) [Mass/Mass] 73 ug/dL 50-170 [facility] Laboratory - Chemistry and C hemistry - challengeOrdered By: Dr. Louise on 07-20-2022 CO2 [Moles/Vol] 28.0 mmol/L 21.0-32.0 [facility] Urea nitrogen/Creatinine [Mass ratio] 21.9 mg/mg 10-20 [facility] No Panel InformationOrdered By: Dr. Louise on 07-20-2022 Estimated GFR (MDRD) Amer 24 mL/min >60 [facility] Comment on above: GFR Calc Estimated GFR (MDRD) Non-Af Amer 20 mL/min >60 [facility] Comment on above: Non- GFR Calc Total Iron Binding Capacity 307 ug/dL 250-450 [facility] Serum or plasma albumin jarrett urement (mass/volume)Ordered By: Dr. Louise on 07-20-2022 Albumin [Mass/Vol] 3.1 g/dL 3.2-5.0 [facility] Serum or plasma calcium jarrett urement (mass/volume)Ordered By: Dr. Louise on 07-20-2022 Calcium [Mass/Vol] 10.5 mg/dL 8.5-10.1 [facility] Serum or plasma creatinine m easurement (mass/volume)Ordered By: Dr. Louise on 07-20-2022 Creatinine [Mass/Vol] 2.47 mg/dL 0.55-1.02 [facility] Comment on above: The validity of the calculated GFR & GFRAA in patients over 70 years has not been determined. Clinical correlation is essential. Serum or plasma ferritin bubba surement (mass/volume)Ordered By: Dr. Louise on 07-20-2022 Ferritin [Mass/Vol] 79 ng/mL 8 [facility] Serum or plasma iron saturat ion measurement (mass fraction)Ordered By: Dr. Louise on 07-20-2022 Iron saturation [Mass fraction] 23.8 % 15.0-55.0 [facility] Serum or plasma urea nitroge n measurement (mass/volume)Ordered By: Dr. Louise on 07-20-2022 Urea nitrogen [Mass/Vol] 54 mg/dL 718 [facility] BASIC METABOLIC PANELon 06-17 Anion gap [Moles/Vol] 14 mmol/L Normal 10 - 20 [facility] Comment on above: Performed By: #### B MP #### [address] [address] Calcium [Mass/Vol] 10.2 mg/dL Normal 8.6 - 10.3 [facility] Comment on above: Performed By: #### B MP #### [address] [address] Chloride [Moles/Vol] 97 mmol/L Low 98 - 107 [facility] Comment on above: Performed By: #### B MP #### [address] [address] Creatinine [Mass/Vol] 2.31 mg/dL High 0.50 - 1.05 [facility] Comment on above: Performed By: #### B MP #### [address] [address] GFR/1.73 sq M.predicted among non-blacks MDRD (S/P/Bld) [Vol rate/Area] 21 mL/min/{1.73_m2} Abnormal >90 [facility] Comment on above: Result Comment: CALC ULATIONS OF ESTIMATED GFR ARE PERFORMED USING THE 2020 CKD-EPI STUDY REFIT EQUATION WITHOUT THE RACE VARIABLE FOR THE IDMS-TRACEABLE CREATININE METHODS. https://jasn.asnjournals.org/content//ASN.474416 6780 Performed By: #### B MP #### [address] [address] Glucose [Mass/Vol] 276 mg/dL High 74 - 99 [facility] Comment on above: Performed By: #### B MP #### [address] [address] HCO3 (Bld) [Moles/Vol] 28 mmol/L Normal 21 - 32 [facility] Comment on above: Performed By: #### B MP #### [address] [address] Potassium [Moles/Vol] 4.7 mmol/L Normal 3.5 - 5.3 [facility] Comment on above: Performed By: #### B MP #### [address] [address] Sodium [Moles/Vol] 134 mmol/L Low 136 - 145 [facility] Comment on above: Performed By: #### B MP #### [address] [address] Urea nitrogen [Mass/Vol] 54 mg/dL High 6 - 23 [facility] Comment on above: Performed By: #### B MP #### [address] [address] Laboratory - Chemistry and C hemistry - challengeon 07-09-2022 Anion gap [Moles/Vol] 14 mmol/L 10 - 20 - Cardiology [facility] [address] Work Phone: Calcium [Mass/Vol] 10.2 mg/dL 8.6 - 10.3 -Car diology -[place] [address] Work Phone: Chloride [Moles/Vol] 97 mmol/L below low threshold 98 - 107 [address] Work Phone: CO2 [Moles/Vol] 28 mmol/L 21 - 32 [address] Work Phone: Creatinine [Mass/Vol] 2.31 mg/dL above high threshold See Below [address] Work Phone: Comment on above: Reference Range: 0.5 0 - 1.05 Glucose [Mass/Vol] 276 mg/dL above high threshold 74 - 99 [address] Work Phone: Potassium [Moles/Vol] 4.7 mmol/L 3.5 - 5.[address] Work Phone: Sodium [Moles/Vol] 134 mmol/L below low threshold 136 - [address] Work Phone: Urea nitrogen [Mass/Vol] 54 mg/dL above high threshold 6 - [address] Work Phone: MUGA SCAN INJECTIONon 2022 MUGA SCAN INJECTION Patient Name: VAL ERICKSON STUDY: MUGA SCAN INJECTION; MUGA (GATED CARDIAC BLOOD POOL); 07/09/2022 11:53 am INDICATION: dyspnea I50.9: CHF (congestive heart failure). COMPARISON: None. ACCESSION NUMBER(S): [id number]; [id number] ORDERING CLINICIAN: CHRIS ANTOINE TECHNIQUE: DIVISION OF [...] to be 23%. Images were interpreted at [facility]. Electronically signed by: PAULA PAREDES MD [facility] Narrative Note - Outpatient- Heart Failureon [...] Updated: 09-Jul-2022 13:20 by Juliana Calloway (RN) [facility] No Panel Informationon 07-09 21 {mL/min/1.73m2} Abnormal >90 MP-Car diology -[place] [employer] Work Phone: Comment on above: CALCULATIONS OF TE MATED GFR ARE PERFORMED USING THE 2020 CKD-EPI STUDY REFIT EQUATION WITHOUT THE RACE VARIABLE FOR THE IDMS-TRACEABLE CREATININE METHODS.https://jasn.asnjournals.org/content/early/ N.3597951894 Normal MP-Cardiology -[place] [address] [employer] Work Phone: Falls Screening (Age 18+)on 06-27-2022 Fall risk assessment b) One or more fall s in the last year [employer] Phone: Tobacco use status CPHS b) [employer] Work Phone: Office Visit (Cardiology)on 06-27-2022 Follow-up visit Diagnoses/Problems Assessed CHF (congestive heart failure) (428.0) (I50.9) Orders CHF (congestive heart failure) NM Muga (Gated Cardiac Blood Pool); Status:Hold For - Scheduling; Requested for:27Jun2022; Radiologist to Determine Optimal Study : Y What are the patient's signs and symptoms? : dyspnea Chief Complaint Heart failure with reduced ejection fraction History of Present Hjfirml77-olxy-sam female with a medical history of diabetes, neuropathy, hypertension, hyperlipidemia who was first seen at [facility] January 29, 2022 with shortness of breath [...] DIRECTED Colace 50 MG CAPSTAKE DIRECTED. Epogen 70623 UNIT/ML Injection SolutionINJECT SUBCUTANEOUSLY DIRECTED. Furosemide 20 [...] Vital Signs Recorded: 27Jun2022 11:05AM Heart Rate76 Dwsysjyg930 Xqiwurkzr53 Height5 ft 3 in Teehte270 lb 2 oz BMI Ktofjwtrdo98.97 kg/m2 BSA Calculated2.18 Tobacco Useb) No Falls Screening (Age 18+)b) One or more falls in the last year O2 Ahssagphvx74 Physical Exam General: AANDOx3; obese HEENT: NC/AT; EOMI; PERRLA, external ear is normal Neck: supple; no JVD Chest: CTAB; no wheezing CVS: S1S2 normal, no murmurs Abdomen: Soft, NT/ND, no organomegaly Extremities: no clubbing/cyanosis/2+ edema bilateral lower extremities Neuro: Grossly intact Results/Data Basic Metabolic Ltgyk37Oms1000 10:58AMHussain, Chris Test NameResultFlagReference Glucose, Ryagc804 mg/dLH74 - 99 Sodium, Tpvma523 mmol/LL136 - 145 POTASSIUM4.9 mmol/L3.5 - 5.3 Chloride, Bvihq964 mmol/L98 - 107 B (more content not included)... Normal [facility] Basophil percentageOrdered B y: Dr. Louise on 06-22-2022 Basophil percentage 4.0 mg/dL 2.5-4.9 [facility] Chloride [Moles/Vol] 101 mmol/L 98-107 [facility] Glucose [Mass/Vol] 175 mg/dL 74-106 [facility] Comment on above: Fasting Glucose resu lt greater than or equal to 126 mg/dL suggests DIABETES MELLITUS per A.D.A. criteria. Potassium [Moles/Vol] 4.2 mmol/L 3.5-5.1 [facility] Sodium [Moles/Vol] 138 mmol/L 136-145 [facility] Blood hemoglobin measurement (mass/volume)Ordered By: Dr. Louise on 06-22-2022 Hemoglobin (Bld) [Mass/Vol] 11.2 g/dL 12.0-15.0 [facility] Hematocrit Auto (Bld) [Volum e fraction]Ordered By: Dr. Louise on 06-22-2022 Hematocrit (Bld) [Volume fraction] 35.6 % 37-47 [facility] Laboratory - Chemistry and C hemistry - challengeOrdered By: Dr. Louise on 06-22-2022 CO2 [Moles/Vol] 29.0 mmol/L 21.0-32.0 [facility] Urea nitrogen/Creatinine [Mass ratio] 20.3 mg/mg 10- [facility] No Panel InformationOrdered By: Dr. Louise on 06-22-2022 Estimated GFR (MDRD) Amer 25 mL/min >60 [facility] Comment on above: GFR Calc Estimated GFR (MDRD) Non-Af Amer 21 mL/min >60 [facility] Comment on above: Non- GFR Calc Serum or plasma albumin jarrett urement (mass/volume)Ordered By: Dr. Louise on 06-22-2022 Albumin [Mass/Vol] 3.2 g/dL 3.2-5.0 [facility] Serum or plasma calcium jarrett urement (mass/volume)Ordered By: Dr. Louise on 06-22-2022 Calcium [Mass/Vol] 9.7 mg/dL 8.5-10.1 [facility] Serum or plasma creatinine m easurement (mass/volume)Ordered By: Dr. Louise on 06-22-2022 Creatinine [Mass/Vol] 2.41 mg/dL 0.55-1.02 [facility] Comment on above: The validity of the calculated GFR & GFRAA in patients over 70 years has not been determined. Clinical correlation is essential. Serum or plasma urea nitroge n measurement (mass/volume)Ordered By: Dr. Louise on 06-22-2022 Urea nitrogen [Mass/Vol] 49 mg/dL 10-02 [facility] BASIC METABOLIC PANELon 05-17 Anion gap [Moles/Vol] 15 mmol/L Normal - [facility] Comment on above: Performed By: #### C BC #### [id number] [place] [address] Calcium [Mass/Vol] 9.4 mg/dL Normal 8.6 - 10.3 [facility] Comment on above: Performed By: #### C BC #### [address] [address] Chloride [Moles/Vol] 101 mmol/L Normal 98 - 107 [facility] Comment on above: Performed By: #### C BC #### [address] [address] Creatinine [Mass/Vol] 2.27 mg/dL High 0.50 - 1.05 [facility] Comment on above: Performed By: #### C BC #### [address] [address] GFR/1.73 sq M.predicted among non-blacks MDRD (S/P/Bld) [Vol rate/Area] 22 mL/min/{1.73_m2} Abnormal >90 [facility] Comment on above: Result Comment: CALC ULATIONS OF ESTIMATED GFR ARE PERFORMED USING THE 2020 CKD-EPI STUDY REFIT EQUATION WITHOUT THE RACE VARIABLE FOR THE IDMS-TRACEABLE CREATININE METHODS. https://jasn.asnjournals.org/content/early//ASN.738871 0708 Performed By: #### C BC #### [address] [address] Glucose [Mass/Vol] 197 mg/dL High 74 - 99 [facility] Comment on above: Performed By: #### C BC #### [address] [address] HCO3 (Bld) [Moles/Vol] 24 mmol/L Normal 21 - 32 [facility] Comment on above: Performed By: #### C BC #### [address] [address] Potassium [Moles/Vol] 4.9 mmol/L Normal 3.5 - 5.3 [facility] Comment on above: Performed By: #### C BC #### [address] [address] Sodium [Moles/Vol] 135 mmol/L Low 136 - 145 [facility] Comment on above: Performed By: #### C BC #### [address] [place] [address] Urea nitrogen [Mass/Vol] 46 mg/dL High 6 - 23 [facility] Comment on above: Performed By: #### C BC #### [address] [place] [address] Laboratory - Chemistry and C hemistry - challengeon 06-11-2022 Anion gap [Moles/Vol] 15 mmol/L 10 - 20 - Cardiology [address] Work Phone: [phone] Calcium [Mass/Vol] 9.4 mg/dL 8.6 - 10.3 -Car diology -[place] [address] Work Phone: [phone] Chloride [Moles/Vol] 101 mmol/L 98 - 107 -C ardiology -[place] [address] Work Phone: CO2 [Moles/Vol] 24 mmol/L 21 - 32 MP-Cardio logy -[place] [address] [employer] Work Phone: Creatinine [Mass/Vol] 2.27 mg/dL above high threshold See Below -[address] Work Phone: Comment on above: Reference Range: 0.5 0 - 1.05 Glucose [Mass/Vol] 197 mg/dL above high threshold 74 - 99 -[place] [address] [address] Work Phone: Potassium [Moles/Vol] 4.9 mmol/L 3.5 - 5.3 - [address] Work Phone: Sodium [Moles/Vol] 135 mmol/L below low threshold 136 - 145 -[address] Work Phone: [phone] Urea nitrogen [Mass/Vol] 46 mg/dL above high threshold 6 - 23 -[address] Work Phone: [phone] Narrative Note - Outpatient- Heart Failureon 06-11-2022 Narrative Note - Outpatient-Heart Failure Narrative Note: Discipline/ClinicHeart Failure Description Val arrived ambulatory with stand up walker to the Heart Failure Clinic for her scheduled visit. States she is feeling good latelyl. She did have to take some extra dose of lasix because she ate a sub from [place]. She denies increased shortness of breath, PND, or Orthopnea. Eating and sleeping without distress. Has not had to use oxygen in weeks. A BMP was drawn and results called to Dr. Antoine. Medications reviewed. Plan is to increase metoprolol succinate to 50mg daily and return in 1 month. Called [facility] and called in 30 day [...] Updated: 11-Jun-2022 11:53 by Macho Pierre (RN) [facility] No Panel Informationon 06-11 22 {mL/min/1.73m2} Abnormal >90 MP-Car diology -[address] Work Phone: Comment on above: CALCULATIONS OF TE MATED GFR ARE PERFORMED USING THE 2020 CKD-EPI STUDY REFIT EQUATION WITHOUT THE RACE VARIABLE FOR THE IDMS-TRACEABLE CREATININE METHODS.https://jasn.asnjournals.org/content/early/ N.1011578411 Basophil percentageOrdered B y: Dr. Louise on 05-23-2022 Basophil percentage 3.4 mg/dL 2.5-4.9 [facility] Chloride [Moles/Vol] 104 mmol/L 98-[address] [facility] Glucose [Mass/Vol] 217 mg/dL 74-106 [facility] Comment on above: Glucose result great er than or equal to 200 mg/dLsuggests DIABETES MELLITUS per A.D.A. criteria. Potassium [Moles/Vol] 4.4 mmol/L 3.5-5.1 [facility] Sodium [Moles/Vol] 139 mmol/L 136-145 [facility] Blood hemoglobin measurement (mass/volume)Ordered By: Dr. Louise on 05-23-2022 Hemoglobin (Bld) [Mass/Vol] 11.3 g/dL 12.0-15.0 [facility] Hematocrit Auto (Bld) [Volum e fraction]Ordered By: Dr. Louise on 05-23-2022 Hematocrit (Bld) [Volume fraction] 35.9 % 37-47 [facility] Laboratory - Chemistry and C hemistry - challengeOrdered By: Dr. Louise on 05-23-2022 CO2 [Moles/Vol] 28.0 mmol/L 21.0-32.0 [facility] Urea nitrogen/Creatinine [Mass ratio] 23.4 mg/mg 10-20 [facility] No Panel InformationOrdered By: Dr. Louise on 05-23-2022 Estimated GFR (MDRD) Amer 28 mL/min >60 [facility] Comment on above: GFR Calc Estimated GFR (MDRD) Non-Af Amer 23 mL/min >60 [facility] Comment on above: Non- GFR Calc Serum or plasma albumin jarrett urement (mass/volume)Ordered By: Dr. Louise on 05-23-2022 Albumin [Mass/Vol] 3.4 g/dL 3.2-5.0 [facility] Serum or plasma calcium jarrett urement (mass/volume)Ordered By: Dr. Louise on 05-23-2022 Calcium [Mass/Vol] 10.0 mg/dL 8.5-10.1 [facility] Serum or plasma creatinine m easurement (mass/volume)Ordered By: Dr. Louise on 05-23-2022 Creatinine [Mass/Vol] 2.18 mg/dL 0.55-1.02 [facility] Comment on above: The validity of the calculated GFR & GFRAA in patients over 70 years has not been determined. Clinical correlation is essential. Serum or plasma urea nitroge n measurement (mass/volume)Ordered By: Dr. Louise on 05-23-2022 Urea nitrogen [Mass/Vol] 51 mg/dL 7-18 [facility] Office Visiton 05-22-2022 Follow-up visit Diagnoses/Problems [...] months. This note was transcribed using the [employer] Dictation system. There may be grammatical, punctuation, [...] DIRECTED Colace 50 MG CAPSTAKE DIRECTED. Epogen 34302 UNIT/ML Injection SolutionINJECT SUBCUTANEOUSLY DIRECTED. Furosemide 20 [...] FOOD. Vitals Vital Signs Recorded: 22May2022 11:19AM Yinqqbxlret03.9 F, Temporal Heart Iokx700 Height5 ft 3 in Usmsza849 lb 12.8 oz BMI Mzlzcplcyi17.44 kg/m2 BSA Calculated2.19 Tobacco Useb) No Falls Screening (Age 18+)a) No falls within the last year O2 Djuwdspzsa69, Nasal Cannula Physical Exam HEENT, there is no inflammation noted of the oropharynx. Pulmonary, diminished breath sounds bilaterally. Clear to auscultation. Cardio, heart sounds are regular rate and rhythm. Extremities, no cyanosis or clubbing and +1-2 pretibial edema Psych, the patient is alert and oriented x3. Signatures Electronically signed by : Paula Walter DO; May 22 2022 12:21PM EST (Author) Normal [employer] Tobacco Screening.on 023 Fall risk assessment a) No falls within the last year [facility] [address] Work Phone: Tobacco use status CPHS b) No [facility] Work Phone: BASIC METABOLIC PANELon 04-19 Anion gap [Moles/Vol] 12 mmol/L Normal 10 - 20 [facility] Comment on above: Performed By: #### C BC #### [address] [address] Calcium [Mass/Vol] 10.3 mg/dL Normal 8.6 - 10.3 [facility] Comment on above: Performed By: #### C BC #### [address] [address] Chloride [Moles/Vol] 97 mmol/L Low 98 - 107 [facility] Comment on above: Performed By: #### C BC #### [address] [address] Creatinine [Mass/Vol] 2.26 mg/dL High 0.50 - 1.05 [facility] Comment on above: Performed By: #### C BC #### [address] [address] GFR/1.73 sq M.predicted among non-blacks MDRD (S/P/Bld) [Vol rate/Area] 22 mL/min/{1.73_m2} Abnormal >90 [facility] Comment on above: Result Comment: CALC ULATIONS OF ESTIMATED GFR ARE PERFORMED USING THE 2020 CKD-EPI STUDY REFIT EQUATION WITHOUT THE RACE VARIABLE FOR THE IDMS-TRACEABLE CREATININE METHODS. https://jasn.asnjournals.org/content/early/ASN.409700 2340 Performed By: #### C BC #### [address] [address] Glucose [Mass/Vol] 247 mg/dL High 74 - 99 [facility] Comment on above: Performed By: #### C BC #### [address] [address] HCO3 (Bld) [Moles/Vol] 29 mmol/L Normal 21 - 32 [facility] Comment on above: Performed By: #### C BC #### [address] [address] Potassium [Moles/Vol] 4.4 mmol/L Normal 3.5 - 5.3 [facility] Comment on above: Performed By: #### C BC #### [address] [address] Sodium [Moles/Vol] 134 mmol/L Low 136 - 145 [facility] Comment on above: Performed By: #### C BC #### [address] [address] Urea nitrogen [Mass/Vol] 41 mg/dL High 6 - 23 [facility] Comment on above: Performed By: #### C BC #### [address] [address] Laboratory - Chemistry and C hemistry - [...] 14-May-2022 12:45 by Juliana Calloway (RN) Normal [facility] No Panel Informationon 05-14 22 {mL/min/1.73m2} Abnormal >90 [facility]ul [facility] [address] Work Phone: Comment on above: CALCULATIONS OF TE MATED GFR ARE PERFORMED USING THE 2020 CKD-EPI STUDY REFIT EQUATION WITHOUT THE RACE VARIABLE FOR THE IDMS-TRACEABLE CREATININE METHODS.https://jasn.asnjournals.org/content/early// N.5557042357 Basophil percentageOrdered B y: Dr. Louise on 04-27-2022 Basophil percentage 3.3 mg/dL 2.5-4.9 [place] [facility] Chloride [Moles/Vol] 104 mmol/L 98-107 [facility] Glucose [Mass/Vol] 228 mg/dL 74-106 [facility] Comment on above: Glucose result great er than or equal to 200 mg/dLsuggests DIABETES MELLITUS per A.D.A. criteria. Potassium [Moles/Vol] 4.7 mmol/L 3.5-5.1 [facility] Sodium [Moles/Vol] 137 mmol/L 136-145 [facility] Blood hemoglobin measurement (mass/volume)Ordered By: Dr. Louise on 04-27-2022 Hemoglobin (Bld) [Mass/Vol] 9.9 g/dL 12.0-15.0 [facility] Hematocrit Auto (Bld) [Volum e fraction]Ordered By: Dr. Louise on 04-27-2022 Hematocrit (Bld) [Volume fraction] 32.4 % 37-47 [facility] Iron measurement (mass/mass) Ordered By: Dr. Louise on 04-27-2022 Iron (Unsp spec) [Mass/Mass] 60 ug/dL 50-170 [facility] Laboratory - Chemistry and C hemistry - challengeOrdered By: Dr. Louise on 04-27-2022 CO2 [Moles/Vol] 27.0 mmol/L 21.0-32.0 [facility] Urea nitrogen/Creatinine [Mass ratio] 19.1 mg/mg 10-20 [facility] No Panel InformationOrdered By: Dr. Louise on 04-27-2022 Estimated Creatinine Clearance Calc 18.35 ml/min [facility] Estimated GFR (MDRD) Amer 29 mL/min >60 [facility] Comment on above: GFR Calc Estimated GFR (MDRD) Non-Af Amer 24 mL/min >60 [facility] Comment on above: Non- GFR Calc Total Iron Binding Capacity 295 ug/dL 250-450 [facility] Serum or plasma albumin jarrett urement (mass/volume)Ordered By: Dr. Louise on 04-27-2022 Albumin [Mass/Vol] 2.9 g/dL 3.2-5.0 [facility] Serum or plasma calcium jarrett urement (mass/volume)Ordered By: Dr. Louise on 04-27-2022 Calcium [Mass/Vol] 9.5 mg/dL 8.5-10.1 [facility] Serum or plasma creatinine m easurement (mass/volume)Ordered By: Dr. Louise on 04-27-2022 Creatinine [Mass/Vol] 2.09 mg/dL 0.55-1.02 [facility] Comment on above: The validity of the calculated GFR & GFRAA in patients over 70 years has not been determined. Clinical correlation is essential. Serum or plasma ferritin bubba surement (mass/volume)Ordered By: Dr. Louise on 04-27-2022 Ferritin [Mass/Vol] 41 ng/mL 8-252 [facility] Serum or plasma iron saturat ion measurement (mass fraction)Ordered By: Dr. Louise on 04-27-2022 Iron saturation [Mass fraction] 20.3 % 15.0-55.0 [facility] Serum or plasma urea nitroge n measurement (mass/volume)Ordered By: Dr. Louise on 04-27-2022 Urea nitrogen [Mass/Vol] 40 mg/dL 7 [facility] Follow Up (Pulmonary Medicin e)on 04-23-2022 Follow Up (Pulmonary Medicine) Diagnoses/Problems Dyspnea on exertion (786.09) (R06.09) Hypoxemia (799.02) (R09.02) Morbid obesity (278.01) (E66.01) Obstructive lung disease (496) (J44.9) Orders Start: Trelegy Ellipta 100-62.5-25 MCG/ACT Inhalation Aerosol Powder Breath Activated; 1 INHALATION ONCE DAILY, RINSE MOUTH OUT AFTERWARDS WITH WATER Rx By: Paula Walter; Dispense: 28 Days ; #:2 Each; Refill: [...] month. This note was transcribed using the [employer] Dictation system. There may be grammatical, punctuation, [...] DIRECTED Colace 50 MG CAPSTAKE DIRECTED. Epogen 39026 UNIT/ML Injection SolutionINJECT SUBCUTANEOUSLY DIRECTED. Furosemide 20 [...] DAILY WITH FOOD. Vitals Vital Signs Recorded: [id number] 11:03AM Fyrlmoejobi02.8 F, Temporal Heart Bhlk174 Lucdccvg025 Xejfbmjsn64 Height5 ft 3 in Tgeipg389 lb 9.6 oz BMI Wwzufjczau42.35 kg/m2 BSA Calculated2.23 (more content not included)... Normal [employer] Tobacco Screening.on 023 Fall risk assessment b) One or more fall s in the last year [facility] [address] Work Phone: Tobacco use status [facility] b) No [facility] [address] Work Phone: ARTERIAL BLOOD GAS,CO-OXon 0 04-16-2022 BASE EXCESS-BLOOD 3.5 mmol/L High -2.0 - 3.0 [facility] Comment on above: Performed By: #### C BC #### [address] [address] BICARB, CALCULATED 27.8 mmol/L High 22.0 - 26.0 [facility] Comment on above: Performed By: #### C BC #### [address] [address] CO HGB 2.1 % Abnormal [facility] Comment on above: Result Comment: REF VALUES NONSMOKERS 0.5-1.5% SMOKERS 0.5-10.0% Performed By: #### C BC #### [address] [address] DEOXY HGB 2.1 % Normal 0.0 - 5.0 [facility] Comment on above: Performed By: #### C BC #### [address] [address] FIO2 21 % Normal [facility] Comment on above: Performed By: #### C BC #### [place] [address] Hemoglobin (Bld) [Mass/Vol] 11.6 g/dL Low 12.0 - 16.0 [facility] Comment on above: Performed By: #### C BC #### [place] [address] MET HGB 0.8 % Normal 0.0 - 1.5 [facility] Comment on above: Performed By: #### C BC #### [place] [id number] OXY HGB 95.1 % Normal 94.0 - 98.0 [facility] Comment on above: Performed By: #### C BC #### [place] [id number] Oxygen (Bld) [Partial pressure] 80 mm[Hg] Low 85 - 95 [facility] Comment on above: Performed By: #### C BC #### [place] [id number] PATIENT TEMPERATURE 37.0 degrees C Normal [facility] Comment on above: Result Comment: NOTE : PATIENT RESULTS ARE NOT CORRECTED FOR TEMPERATURE. Performed By: #### C BC #### [place] [address] PCO2 40 mmHg Normal 38 - 42 [facility] Comment on above: Performed By: #### C BC #### [address] [address] pH (Bld) 7.45 [pH] High 7.38 - 7.42 [facility] Comment on above: Performed By: #### C BC #### [address] [place] [address] SITE OF ARTERIAL PUNCTURE R RADIAL Normal [facility] Comment on above: Performed By: #### C BC #### [address] [address] SO2 98 % Normal 94 - 100 [facility] Comment on above: Performed By: #### C BC #### [address] [address] CHEST 2 VIEW PA AND LATon CHEST 2 VIEW PA AND LAT Patient Name: VAL ERICKSON STUDY: CHEST 2 VIEW PA AND LAT; 04/16/2022 2:56 pm INDICATION: SOB R06.09: Dyspnea on exertion. COMPARISON: Chest radiograph 01/26/2022 ACCESSION NUMBER(S): [id number] ORDERING CLINICIAN: PAULA WALTER FINDINGS: PA and [...] Electronically signed by: LAUREN BULLARD MD Normal [facility] Laboratory - Chemistry and C hemistry - [...] [Moles/Vol] 14 mmol/L Normal 10 - 20 [facility] Comment on above: Performed By: #### C MP #### [address] [address] Calcium [Mass/Vol] 10.1 mg/dL Normal 8.6 - 10.3 [facility] Comment on above: Performed By: #### C MP #### [address] [address] Chloride [Moles/Vol] 102 mmol/L Normal 98 - 107 [facility] Comment on above: Performed By: #### C MP #### [address] [address] Creatinine [Mass/Vol] 2.09 mg/dL High 0.50 - 1.05 [facility] Comment on above: Performed By: #### C MP #### [address] [address] GFR/1.73 sq M.predicted among non-blacks MDRD (S/P/Bld) [Vol rate/Area] 24 mL/min/{1.73_m2} Abnormal >90 [facility] Comment on above: Result Comment: CALC ULATIONS OF ESTIMATED GFR ARE PERFORMED USING THE 2020 CKD-EPI STUDY REFIT EQUATION WITHOUT THE RACE VARIABLE FOR THE IDMS-TRACEABLE CREATININE METHODS. https://jasn.asnjournals.org/content/early/ASN.387352 4641 Performed By: #### C MP #### [address] [address] Glucose [Mass/Vol] 234 mg/dL High 74 - 99 [facility] Comment on above: Performed By: #### C MP #### [address] [address] HCO3 (Bld) [Moles/Vol] 28 mmol/L Normal 21 - 32 [facility] Comment on above: Performed By: #### C MP #### [address] [address] Potassium [Moles/Vol] 4.6 mmol/L Normal 3.5 - 5.3 [facility] Comment on above: Performed By: #### C MP #### [address] [address] Sodium [Moles/Vol] 139 mmol/L Normal 136 - 145 [facility] Comment on above: Performed By: #### C MP #### [address] [address] Urea nitrogen [Mass/Vol] 45 mg/dL High 6 - 23 [facility] Comment on above: Performed By: #### C MP #### [address] [address] BNPon 04-13-2022 Natriuretic peptide B (Bld) [Mass/Vol] 1140 pg/mL High 0 - 99 [facility] Comment on above: Result Comment: . <1 00 pg/mL - Heart failure unlikely 100-299 pg/mL - Intermediate probability of acute heart . failure exacerbation. Correlate with clinical . context and patient history. >=300 pg/mL - Heart Failure likely. Correlate with clinical . context and patient history. BNP testing is performed using different testing methodology at [facility] than at other [facility]. Direct result comparisons should only be made within the same method. Performed By: #### B NP2 #### [address] [address] Laboratory - Chemistry and C hemistry - [...] above: . <100 pg/mL - Heart failure bobpojij610-258 pg/mL - Intermediate probability of acute heart. failure exacerbation. Correlate with clinical. context and patient history. >=300 pg/mL - Heart Failure likely. Correlate with clinical. context and patient history.BNP testing is performed using different testing methodology at [facility] than at other [facility]. Direct result comparisons should only be [...] currently [facility]. She was 97% on 2L when she [...] in 4 weeks. Called in prescription to [facility] for 90 tabs with 11 [...] 13-Apr-2022 12:25 by Macho Pierre (RN) Normal [facility] No Panel Informationon 04-13 24 {mL/min/1.73m2} Abnormal >90 [facility] [facility] [employer] DO Work Phone: Comment on above: CALCULATIONS OF TE MATED GFR ARE PERFORMED USING THE 2020 CKD-EPI STUDY REFIT EQUATION WITHOUT THE RACE VARIABLE FOR THE IDMS-TRACEABLE CREATININE METHODS.https://jasn.asnjournals.org/content/early// N.0109019005 Consult (Pulmonary Medicine) on 04-09-2022 Consult (Pulmonary [...] Status:Hold For - Scheduling,Retrospective Authorization; Requested for:09Apr2022; Perform:[facility] (Non-Interfaced); Due:08Jul2022; Last Updated By:Leticia Lopez; 04/09/2022 11:57:39 AM;Ordered; For:Dyspnea on exertion, Hypoxemia; Ordered By:Paula Walter; Complete PFT with ABG; Status:Hold For - Scheduling,Retrospective Authorization; Requested for:09Apr2022; Perform:[facility] (Non-Interfaced); Order Comments:ABG ON ROOM AIR; Due:08Jul2022; [...] air. This note was transcribed using the Observable Networksation system. There may be grammatical, punctuation, or [...] has been on oxygen at 2 L adxids-krb-itjwz since then she lives alone at her [...] her was a smoker. 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 She reports being exposed to some chemicals for about 15 years and had to wear a mask. She was born and raised in [place]. Additionally the patient has a history of [...] (Z80.9) Famil (more content not included)... Normal [employer] Tobacco Screening.on 023 Fall risk assessment b) One or more fall s in the last year [facility] [employer] DO Work Phone: Tobacco use status CPHS b) No [facility] [facility] [employer] DO Work Phone: Basophil percentageOrdered B y: Dr. Louise on 03-30-2022 Basophil percentage 3.4 mg/dL 2.5-4.9 [facility] Bilirubin [Mass/Vol] 0.30 mg/dL 0.20-1.00 [facility] Comment on above: For patients on eltr ombopag therapy, use of Dimension [place] TBIL is not recommended. Chloride [Moles/Vol] 103 mmol/L 98-107 [facility] Cholesterol [Mass/Vol] 73 mg/dL <200 [facility] Comment on above: <200 mg/dL Desirable 200-240 mg/dL Borderline >240 mg/dL High Risk Glucose [Mass/Vol] 90 mg/dL 74-106 [facility] Potassium [Moles/Vol] 4.2 mmol/L 3.5-5.1 [facility] Protein [Mass/Vol] 6.7 g/dL 6.4-8.2 [facility] Sodium [Moles/Vol] 139 mmol/L 136-145 [facility] Triglyceride [Mass/Vol] 58 mg/dL <199 [facility] Comment on above: The drugs N-Acetylcy steine and Metamizole may falsely depress this assay.Serum Triglycerides Reference Interval Normal <150 mg/dL Borderline high 150 - 199 mg/dL High 200 - 499 mg/dL Very High > or = 500 mg/dL WBC (Bld) [#/Vol] 7.3 10*3/uL 4.4-11.0 [facility] Blood erythrocytes count (nu mber/volume)Ordered By: Dr. Louise on 03-30-2022 RBC (Bld) [#/Vol] 3.55 10*6/uL 4.2-5.4 [facility] Blood hemoglobin measurement (mass/volume)Ordered By: Dr. Louise on 03-30-2022 Hemoglobin (Bld) [Mass/Vol] 10.6 g/dL 12.0-15.0 [facility] Blood platelet mean volumeOr dered By: Dr. Louise on 03-30-2022 Platelet mean volume (Bld) [Entitic vol] 10.4 fL 6.2-12.0 [facility] Determination of erythrocyte mean corpuscular volume (MCV)Ordered By: Dr. Louise on 03-30-2022 MCV (RBC) [Entitic vol] 96.9 fL 81-99 [facility] Hematocrit Auto (Bld) [Volum e fraction]Ordered By: Dr. Louise on 03-30-2022 Hematocrit (Bld) [Volume fraction] 34.4 % 37-47 [facility] Laboratory - Chemistry and C hemistry - challengeOrdered By: Dr. Louise on 03-30-2022 ALP [Catalytic activity/Vol] 57 U/L 45-117 [facility] ALT [Catalytic activity/Vol] 27 U/L 13-56 [facility] CO2 [Moles/Vol] 30.0 mmol/L 21.0-32.0 [facility] Globulin (S) [Mass/Vol] 3.5 g/dL 2.2-4.2 [facility] Urea nitrogen/Creatinine [Mass ratio] 22.4 mg/mg 10-20 [facility] Laboratory - Hematology and Cell countsOrdered By: Dr. Louise on 03-30-2022 Erythrocyte distribution width (RBC) [Entitic vol] 50.2 fL 35.1-43.9 [facility] Erythrocyte distribution width (RBC) [Ratio] 14.2 % 11.6-14.6 [facility] MCH (RBC) [Entitic mass] 29.9 pg 27.0-32.0 [facility] Auto (RBC) [Mass/Vol]Or dered By: Dr. Louise on 03-30-2022 MCHC (RBC) [Mass/Vol] 30.8 g/dL 32-36 [facility] No Panel InformationOrdered By: Dr. Louise on 03-30-2022 Urine Microalbumin/Creatini ne Ratio 142.3 mg/g CRE <30 [facility] Estimated GFR (MDRD) Amer 27 mL/min >60 [facility] Comment on above: GFR Calc Estimated GFR (MDRD) Non-Af Amer 22 mL/min >60 [facility] Comment on above: Non- GFR Calc Platelets bldOrdered By: Dr. Louise on 03-30-2022 Platelets (Bld) [#/Vol] 208 10*3/uL 150-450 [facility] Serum or plasma albumin jarrett urement (mass/volume)Ordered By: Dr. Louise on 03-30-2022 Albumin [Mass/Vol] 3.2 g/dL 3.2-5.0 [facility] Serum or plasma albumin/glob ulin mass ratioOrdered By: Dr. Louise on 03-30-2022 Albumin/Globulin [Mass ratio] 0.9 {ratio} 0.9-2.4 [facility] Serum or plasma calcium jarrett urement (mass/volume)Ordered By: Dr. Louise on 03-30-2022 Calcium [Mass/Vol] 9.4 mg/dL 8.5-10.1 [facility] Serum or plasma cholesterol in HDL measurement (mass/volume)Ordered By: Dr. Louise on 03-30-2022 Cholesterol in HDL [Mass/Vol] 45 mg/dL >40 [facility] Comment on above: The drugs N-Acetylcy steine and Metamizole may falsely depress this assay. Reference Range HDL <40 mg/dL Low HDL Cholesterol HDL >or= 60 mg/dL High HDL Cholesterol Serum or plasma cholesterol in VLDL measurement (mass/volume)Ordered By: Dr. Louise on 03-30-2022 Cholesterol in VLDL [Mass/Vol] 12 mg/dL 5-40 [facility] Serum or plasma creatinine m easurement (mass/volume)Ordered By: Dr. Louise on 03-30-2022 Creatinine [Mass/Vol] 2.28 mg/dL 0.55-1.02 [facility] Comment on above: The validity of the calculated GFR & GFRAA in patients over 70 years has not been determined. Clinical correlation is essential. Serum or plasma low density lipoprotein (LDL) cholesterol measurement (mass/volume)Ordered By: Dr. Louise on 03-30-2022 Cholesterol in LDL [Mass/Vol] 16 mg/dL 0-130 [facility] Serum or plasma urea nitroge n measurement (mass/volume)Ordered By: Dr. Louise on 03-30-2022 Urea nitrogen [Mass/Vol] 51 mg/dL 7-18 [facility] Thin prep Papanicolaou smear with manual screeningOrdered By: Dr. Louise on 03-30-2022 Thin prep Papanicolaou smear with manual screening 158.0 mg/L NO RANGE EST. [facility] Thin prep Papanicolaou smear with manual screening 16 U/L 15-37 [facility] Thin prep Papanicolaou smear with manual screening 6 5-15 [facility] Urine creatinine measurement (mass/volume)Ordered By: Dr. Louise on 03-30-2022 Creatinine (U) [Mass/Vol] 111.00 mg/dL NO RANGE EST. [facility] Urine protein measurement (m ass/volume)Ordered By: Dr. Louise on 03-30-2022 Protein (U) [Mass/Vol] 34.7 mg/dL 0.0-11.8 [facility] Urine protein/creatinine mas s ratioOrdered By: Dr. Louise on 03-30-2022 Protein/Creatinine (U) [Mass ratio] 313 mg/g CRE 0-200 [facility] Whole blood hemoglobin A1c/t otal hemoglobin ratio (mass fraction)Ordered By: Dr. Louise on 03-30-2022 HbA1c (Bld) [Mass fraction] 7.7 % 3.8-5.6 [facility] Comment on above: Normal < 5.7 % Predi abetic 5.7 - 6.4 % Diabetic >or= 6.5 % Please note range changes. Office Visit (Cardiology)on 03-28-2022 Follow-up visit Chief Complaint ACC/AHA stage C HFrEF History of Present [id number] female with a medical history of diabetes, neuropathy, hypertension, hyperlipidemia who was first seen at [facility] January 29, 2022 with shortness of breath [...] lower extremities Neuro: Grossly intact Results/Data Glucose [id number] 11:35AMNon Ambulatory, Provider Ordering Provider: JAIRON LOPEZ [address] Test NameResultFlagReference Glucose-[id number] mg/dLH74 - 99 RN/ NOTIFIED Glucose [id number] 07:32AMNon Ambulatory, Provider Ordering Provider: JAIRON LOPEZ [address] Test NameResultFlagReference Glucose-[id number] mg/dLH74 - 99 RN/MD NOTIFIED [id number] 05:56AMNon Ambulatory, Provider Test NameResultFlagReference Echocardiogram(Report) [place] [address] [phone], TRANSTHORACIC ECHOCARDIOGRAM REPORT Patient Name: VAL ERICKSON Reading Physician: [id number] Chris Antoine MD Study Date: 01/29/2022 Referring Physician: [id number] Jairon Lopez MD MRN/PID: [id number] PCP: Accession/Order#: [id number] Department Location: [address] Date of : 1945 Fellow: Gender: F Nurse: Admit Date: 01/26/2022 Hazmat Cdl A Driver: SHEN Duval RVT Admission Status: Inpatient - Additional Staff: Routine Height: 160.02 cm CC Report to: Weight: 123.38 kg Study Type: Echocardiogram BSA: 2.20 m2 Blood Pressure: 132 /74 mmHg Diagnosis/ICD: R06.02-Shortness of breath Indication: Dyspnea, Congestive Heart Failure Procedure/CPT: Echo Complete w Full [id number] Patient History: Pertinent History: No previous echo. [...] cm (2.0-3.7cm) (more content not included)... Normal [employer] Tobacco Screening.on 023 Fall risk assessment a) No falls within the last year -[facility] [employer] Work Phone: Tobacco use status CPHS b) No [facility] [employer] Work Phone: Basophil percentageOrdered B y: Dr. Louise on 03-02-2022 Basophil percentage 3.8 mg/dL 2.5-4.9 [facility] Chloride [Moles/Vol] 102 mmol/L 98-107 [facility] Glucose [Mass/Vol] 178 mg/dL 74-106 [facility] Comment on above: Fasting Glucose resu lt greater than or equal to 126 mg/dL suggests DIABETES MELLITUS per A.D.A. criteria. Potassium [Moles/Vol] 4.3 mmol/L 3.5-5.1 [facility] Sodium [Moles/Vol] 138 mmol/L 136-145 [facility] Blood hemoglobin measurement (mass/volume)Ordered By: Dr. Louise on 03-02-2022 Hemoglobin (Bld) [Mass/Vol] 10.1 g/dL 12.0-15.0 [facility] Hematocrit Auto (Bld) [Volum e fraction]Ordered By: Dr. Louise on 03-02-2022 Hematocrit (Bld) [Volume fraction] 32.6 % 37-47 [facility] Laboratory - Chemistry and C hemistry - challengeOrdered By: Dr. Louise on 03-02-2022 CO2 [Moles/Vol] 32.0 mmol/L 21.0-32.0 [facility] Urea nitrogen/Creatinine [Mass ratio] 20.8 mg/mg 10-20 [facility] No Panel InformationOrdered By: Dr. Louise on 03-02-2022 Estimated Creatinine Clearance Calc 16.25 ml/min [facility] Estimated GFR (MDRD) Amer 26 mL/min >60 [facility] Comment on above: GFR Calc Estimated GFR (MDRD) Non-Af Amer 21 mL/min >60 [facility] Comment on above: Non- GFR Calc Serum or plasma albumin jarrett urement (mass/volume)Ordered By: Dr. Louise on 03-02-2022 Albumin [Mass/Vol] 3.4 g/dL 3.2-5.0 [facility] Serum or plasma calcium jarrett urement (mass/volume)Ordered By: Dr. Louise on 03-02-2022 Calcium [Mass/Vol] 9.6 mg/dL 8.5-10.1 [facility] Serum or plasma creatinine m easurement (mass/volume)Ordered By: Dr. Louise on 03-02-2022 Creatinine [Mass/Vol] 2.36 mg/dL 0.55-1.02 [facility] Comment on above: The validity of the calculated GFR & GFRAA in patients over 70 years has not been determined. Clinical correlation is essential. Serum or plasma urea nitroge n measurement (mass/volume)Ordered By: Dr. Louise on 03-02-2022 Urea nitrogen [Mass/Vol] 49 mg/dL - [facility] Basophil percentageOrdered B y: Dr. Louise on 02-02-2022 Basophil percentage 4.3 mg/dL 2.5-4.9 [facility] Chloride [Moles/Vol] 96 mmol/L 98-107 [facility] Glucose [Mass/Vol] 104 mg/dL 74-106 [facility] Comment on above: Fasting Glucose resu lt from 100 to 125 mg/dL suggests IMPAIRED HOMEOSTASIS per A.D.A. criteria. Potassium [Moles/Vol] 4.4 mmol/L 3.5-5.1 [facility] Sodium [Moles/Vol] 137 mmol/L 136-145 [facility] Blood hemoglobin measurement (mass/volume)Ordered By: Dr. Louise on 02-02-2022 Hemoglobin (Bld) [Mass/Vol] 9.1 g/dL 12.0-15.0 [facility] Hematocrit Auto (Bld) [Volum e fraction]Ordered By: Dr. Louise on 02-02-2022 Hematocrit (Bld) [Volume fraction] 29.9 % 37-47 [facility] Iron measurement (mass/mass) Ordered By: Dr. Louise on 02-02-2022 Iron (Unsp spec) [Mass/Mass] 71 ug/dL 50-170 [facility] Laboratory - Chemistry and C hemistry - challengeOrdered By: Dr. Louise on 02-02-2022 CO2 [Moles/Vol] 36.0 mmol/L 21.0-32.0 [facility] Urea nitrogen/Creatinine [Mass ratio] 24.9 mg/mg 10-20 [facility] No Panel InformationOrdered By: Dr. Louise on 02-02-2022 Estimated GFR (MDRD) Amer 30 mL/min >60 [facility] Comment on above: GFR Calc Estimated GFR (MDRD) Non-Af Amer 25 mL/min >60 [facility] Comment on above: Non- GFR Calc Total Iron Binding Capacity 360 ug/dL 250-450 [facility] Serum or plasma albumin jarrett urement (mass/volume)Ordered By: Dr. Louise on 02-02-2022 Albumin [Mass/Vol] 3.2 g/dL 3.2-5.0 [facility] Serum or plasma calcium jarrett urement (mass/volume)Ordered By: Dr. Louise on 02-02-2022 Calcium [Mass/Vol] 10.2 mg/dL 8.5-10.1 [facility] Serum or plasma creatinine m easurement (mass/volume)Ordered By: Dr. Louise on 02-02-2022 Creatinine [Mass/Vol] 2.05 mg/dL 0.55-1.02 [facility] Comment on above: The validity of the calculated GFR & GFRAA in patients over 70 years has not been determined. Clinical correlation is essential. Serum or plasma ferritin bubba surement (mass/volume)Ordered By: Dr. Louise on 02-02-2022 Ferritin [Mass/Vol] 44 ng/mL 8-252 [facility] Serum or plasma iron saturat ion measurement (mass fraction)Ordered By: Dr. Louise on 02-02-2022 Iron saturation [Mass fraction] 19.7 % 15.0-55.0 [facility] Serum or plasma urea nitroge n measurement (mass/volume)Ordered By: Dr. Louise on 02-02-2022 Urea nitrogen [Mass/Vol] 51 mg/dL 10-02 [facility] Clinical Event Note-ED Post Discharge Result Follow Up: Atteon 01-30-2022 Clinical Event Note-ED Post Discharge Result Follow Up: Atte Clinical Event: Clinical Event Note: TopicED Post Discharge Result Follow Up: Attempt #1, #Complete: Urine: E. coli Details Facility Name: [facility] Contact: I reviewed the results of a [...] Post-Discharge Culture Follow Up Team, please contact [phone]. . Diana Ryan PharmD, [facility] PGY1 [employer] [facility] Electronic Signatures: Diana Ryan ([facility]) (Signed 30-Jan-2022 14:58) Authored: Clinical Event Note Breanne Mark (PharmD) (Signed 31-Jan-2022 08:09) Co-Signer: Clinical Event Note Last Updated: 31-Jan-2022 08:09 by Breanne Mark (PharmD) Normal [facility] BASIC METABOLIC PANELon 01-16 Anion gap [Moles/Vol] 9 mmol/L Low 10 - 20 [facility] Comment on above: Performed By: #### C MP #### [address] [address] Calcium [Mass/Vol] 9.7 mg/dL Normal 8.6 - 10.3 [facility] Comment on above: Performed By: #### C MP #### [address] [address] Chloride [Moles/Vol] 94 mmol/L Low 98 - 107 [facility] Comment on above: Performed By: #### C MP #### [address] [address] Creatinine [Mass/Vol] 2.21 mg/dL High 0.50 - 1.05 [facility] Comment on above: Performed By: #### C MP #### [address] [address] GFR/1.73 sq M.predicted among non-blacks MDRD (S/P/Bld) [Vol rate/Area] 22 mL/min/{1.73_m2} Abnormal >90 [facility] Comment on above: Result Comment: CALC ULATIONS OF ESTIMATED GFR ARE PERFORMED USING THE 2020 CKD-EPI STUDY REFIT EQUATION WITHOUT THE RACE VARIABLE FOR THE IDMS-TRACEABLE CREATININE METHODS. https://jasn.asnjournals.org/content/early//ASN.211624 8437 Performed By: #### C MP #### [address] [address] Glucose [Mass/Vol] 154 mg/dL High 74 - 99 [facility] Comment on above: Performed By: #### C MP #### [address] [address] HCO3 (Bld) [Moles/Vol] 35 mmol/L High 21 - 32 [facility] Comment on above: Performed By: #### C MP #### [address] [address] Potassium [Moles/Vol] 3.9 mmol/L Normal 3.5 - 5.3 [facility] Comment on above: Performed By: #### C MP #### [address] [address] Sodium [Moles/Vol] 134 mmol/L Low 136 - 145 [facility] Comment on above: Performed By: #### C MP #### [address] [address] Urea nitrogen [Mass/Vol] 56 mg/dL High 6 - 23 [facility] Comment on above: Performed By: #### C MP #### [address] [address] CBCon 01-29-2022 Erythrocyte distribution width (RBC) [Ratio] 14.0 % Normal 11.5 - 14.5 [facility] Comment on above: Performed By: #### C BC #### [address] [address] Hematocrit (Bld) [Volume fraction] 27.6 % Low 36.0 - 46.0 [facility] Comment on above: Performed By: #### C BC #### [address] [address] Hemoglobin (Bld) [Mass/Vol] 8.7 g/dL Low 12.0 - 16.0 [facility] Comment on above: Performed By: #### C BC #### [address] [address] MCHC (RBC) [Mass/Vol] 31.5 g/dL Low 32.0 - 36.0 [facility] Comment on above: Performed By: #### C BC #### [address] [address] MCV (RBC) [Entitic vol] 98 fL Normal 80 - 100 [facility] Comment on above: Performed By: #### C BC #### [address] [address] Platelets (Bld) [#/Vol] 220 10*3/uL Normal 150 - 450 [facility] Comment on above: Performed By: #### C BC #### [address] [address] RBC 2.81 x10E12/L Low 4.00 - 5.20 [facility] Comment on above: Performed By: #### C BC #### [address] [address] WBC (Bld) [#/Vol] 6.3 10*3/uL Normal 4.4 - 11.3 [facility] Comment on above: Performed By: #### C BC #### [place] [address] CORONAVIRUS 2019 BY PCRon SARS-CoV-2 (COVID-19) RNA ALY+probe Ql (Unsp spec) Not detected Normal Not Detected [facility] Comment on above: Result Comment: . This test has received FDA Emergency Use Authorization (EUA) and has been verified by [facility]. This test is only authorized for the duration of time that circumstances exist to justify the authorization of the emergency use of in vitro diagnostic tests for the detection of SARS-CoV-2 virus and/or diagnosis of COVID-19 infection under section 564(b)(1) of the Act, 21 U.S.C. 360bbb-3(b)(1), unless the authorization is terminated or revoked sooner. [facility] is certified under CLIA-88 as qualified to perform high complexity testing. Testing is performed in the [facility] laboratory located at [address] [place] [address]. SARS-CoV-2/Flu/RSV Multiplex Test: Fact sheet for providers: https://www.fda.gov/media/458280/download Fact sheet for patients: https://www.fda.gov/media/828720/download Performed By: #### C MP #### [place] [address] Lab Specimen Source Nasal, Nasopharyngeal Normal [facility] Comment on above: Performed By: #### C MP #### [place] [address] Covid 19 Resultson SARS-CoV-2 (COVID-19) RNA ALY+probe [...] You may also be contacted by the [facility] to see if any of your close [...] or Naproxen (Aleve) can also be used. Elss-dsk-xmfojgw cough and cold medicines can be used according to the instructions on the package. Some uuyv-xzc-hpgcugs medicines also contain acetaminophen. Make sure you [...] water are not available, use alcohol-based hand college intern. Avoid touching your eyes, nose, and mouth [...] 24 lili (more content not included)... Normal [facility] Daily Progress Note-Nephrolo delaney 01-29-2022 Daily Progress [...] baseline. Objective Data: Objective Information: T PRBPMAPSpO2 [id number]/7496% Date/Time01/29 7: 7: 7: 7: 7:34 Range(36.2C - 36.5C ) (77 - 110 ) (14 - 20 ) (95 - 132 )/ (58 - 74 ) (96% - 99% ) Pain reported at 01/29 2:00: 0 = None ---- Intake and Output ----- Mn/Dy/Year TimeIntakeOutputNet Jan 29, 2022 6:00 [id number] Jan 28, 2022 10:00 [id number] Jan 28, 2022 2:00 [id number] The Intake and Output Totals for the last 24 hours are: IntakeOutputNet [id number] Physical Exam by System: Constitutional: Well developed, [...] of 123 at time of discharge from [place] was 132 SIADH Shortness of breath Possible [...] was not (more content not included)... [facility] Discharge [id number] 01-29- 022 Discharge Profile2 Discharge Orders: Anticipated Discharge Date: Anticipated Discharge [id number] Anticipated Discharge Time10:32 DNAR: Code Status at Discharge: Full Code Activity: activity as tolerated. May shower. May drive. Diet: Dietdiabetic/carbohydrat e counted Diabetic/Carbohydrate Dpfukkn31saii/Carb meal, 45gram/Carb snack (1999-s) Fluid [id number] mL Oxygen: Administer oxygen at 2 L/min [...] her UTI. [facility] She did develop some acute kidney injury [...] individual's condition. Attending ProviderJairon Lopez Attending Provider [id number] Therapy Orders: Occupational Therapy Orders3-5 times/week Physical Therapy Orders3-5 times/week Provider Follow Up: Physician To Follow at Skilled/RehabAttending Physician at Skilled/Rehab Provider FINAL REVIEW of Orders: Final Review: Final Review of Medication Reconciliation and Orders Completedby Physician Reviewing Tu Lopez MD at 29-Jan-2022 12:17:57 Appointments: Follow-Up Appointment 01: Physician/Dept/[facility] Phys[facility]/Facility Physician Reason for Referralpost hospital stay [...] REVIEW of Orders, Appointments, 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 Last Updated: 29-Jan-2022 12:17 by Jairon Lopez) [facility] Echocardiogramon 01-29-2022 [place] [address] [phone], TRANSTHORACIC ECHOCARDIOGRAM REPORT Patient Name: VAL Dwyer Physician: [id number] Chris Antoine MD Study Date: 01/29/2022 Referring Physician: [id number] Jairon Lopez MD MRN/PID: [id number] PCP: Accession/Order#: [id number] Department Location: [address] Date of : 1945 Fellow: Gender: F Nurse: Admit Date: 01/26/2022 [facility]mat Cdl A Driver: Laura Hicks RVT, SHEN Admission Status: Inpatient - Additional Staff: Routine Height: 160.02 cm CC Report to: Weight: 123.38 kg Study Type: Echocardiogram BSA: 2.20 m2 Blood Pressure: 132 /74 mmHg Diagnosis/ICD: R06.02-Shortness of breath Indication: Dyspnea, Congestive Heart Failure Procedure/CPT: Echo Complete w Full [id number] Patient History: Pertinent History: No previous echo. [...] [place] Area A2C: 23.0 cm2 [place] A4C: 7.6 cm [place] A2C: 5.7 cm LA Volume Index: 34.1 [...] 1.0 m/s (0.6-0.9m/s) PV Max P.2 mmHg [id number] Chris Antoine MD Electronically signed on 01/29/2022 at 11:36:10 AM Final [facility] GLUCOSE-POCTon 01-29-2022 Glucose [Mass/Vol] 173 mg/dL High 74 - 99 [facility] Comment on above: Result Comment: RN/Holli D NOTIFIED Performed By: #### C BC #### [address] [address] Glucose [Mass/Vol] 110 mg/dL High 74 - 99 [facility] Comment on above: Result Comment: RN/Holli Reynoso NOTIFIED Performed By: #### C MP #### [address] [address] Order Reconciliationon 01-29 Order Reconciliation Page 1 [...] constipation 11-No (more content not included)... [facility] PROCALCITONINon 01-29-2022 PROCALCITONIN 0.14 ng/mL Abnormal <=0.07 [facility] Comment on above: Result Comment: Proc alcitonin [...] evaluated. Performed By: #### C BC #### [address] [address] BASIC METABOLIC PANELon 11 Anion gap [Moles/Vol] 10 mmol/L Normal 10 - 20 [facility] Comment on above: Performed By: #### G ROVERTO #### [address] [address] Calcium [Mass/Vol] 9.4 mg/dL Normal 8.6 - 10.3 [facility] Comment on above: Performed By: #### G ROVERTO #### [address] [place] [address] Chloride [Moles/Vol] 91 mmol/L Low 98 - 107 [facility] Comment on above: Performed By: #### G ROVERTO #### [address] [address] Creatinine [Mass/Vol] 2.10 mg/dL High 0.50 - 1.05 [facility] Comment on above: Performed By: #### G ROVERTO #### [address] [address] GFR/1.73 sq M.predicted among non-blacks MDRD (S/P/Bld) [Vol rate/Area] 24 mL/min/{1.73_m2} Abnormal >90 [facility] Comment on above: Result Comment: CALC ULATIONS OF ESTIMATED GFR ARE PERFORMED USING THE 2020 CKD-EPI STUDY REFIT EQUATION WITHOUT THE RACE VARIABLE FOR THE IDMS-TRACEABLE CREATININE METHODS. https://jasn.asnjournals.org/content/early//ASN.359775 7735 Performed By: #### G ROVERTO #### [address] [address] Glucose [Mass/Vol] 92 mg/dL Normal 74 - 99 [facility] Comment on above: Performed By: #### G ROVERTO #### [address] [address] HCO3 (Bld) [Moles/Vol] 33 mmol/L High 21 - 32 [facility] Comment on above: Performed By: #### G ROVERTO #### [address] [address] Potassium [Moles/Vol] 4.2 mmol/L Normal 3.5 - 5.3 [facility] Comment on above: Performed By: #### G ROVERTO #### [address] [address] Sodium [Moles/Vol] 130 mmol/L Low 136 - 145 [facility] Comment on above: Performed By: #### G ROVERTO #### [address] [address] Urea nitrogen [Mass/Vol] 50 mg/dL High 6 - 23 [facility] Comment on above: Performed By: #### G ROVERTO #### [address] [address] CBCon 01-28-2022 Erythrocyte distribution width (RBC) [Ratio] 14.1 % Normal 11.5 - 14.5 [facility] Comment on above: Performed By: #### C MP #### [address] [address] Hematocrit (Bld) [Volume fraction] 29.4 % Low 36.0 - 46.0 [facility] Comment on above: Performed By: #### C MP #### [address] [address] Hemoglobin (Bld) [Mass/Vol] 9.4 g/dL Low 12.0 - 16.0 [facility] Comment on above: Performed By: #### C MP #### [address] [address] MCHC (RBC) [Mass/Vol] 32.0 g/dL Normal 32.0 - 36.0 [facility] Comment on above: Performed By: #### C MP #### [address] [address] MCV (RBC) [Entitic vol] 98 fL Normal 80 - 100 [facility] Comment on above: Performed By: #### C MP #### [address] [address] Platelets (Bld) [#/Vol] 237 10*3/uL Normal 150 - 450 [facility] Comment on above: Performed By: #### C MP #### [address] [address] RBC 3.01 x10E12/L Low 4.00 - 5.20 [facility] Comment on above: Performed By: #### C MP #### [address] [address] WBC (Bld) [#/Vol] 6.3 10*3/uL Normal 4.4 - 11.3 [facility] Comment on above: Performed By: #### C #### [id number] [place] [address] Daily Progress Note-General Internal Medicineon 01-28-2022 Daily Progress Note-General Internal Medicine Service: General Internal Medicine Subjective Data: VAL ERICKSON is a 76 year old Female who is Hospital Day # 3. Patient seen and examined. He feels better, breathing has improved, still reporting intermittent chest pains, no nausea, vomiting fevers or chills. Objective Data: Objective Information: T PRBPMAPSpO2 Value36.855107479/7196% Date/Time01/28 8: 8: 8: 8: 8:07 Range(35.9C [...] ----- Mn/Dy/Year TimeIntakeOutputNet Jan 28, 2022 6:00 [id number] Jan 27, 2022 10:00 [id number] Jan 27, 2022 2:00 [id number] The Intake and Output Totals for the last 24 hours are: IntakeOutputNet [id number] Physical Exam by System: Constitutional: Wake, alert, [...] Last Updated: 28-Jan-2022 08:45 by Jairon Lopez) [facility] Daily Progress Note-Nephrolo gyon 01-28-2022 Daily [...] this. Objective Data: Objective Information: T PRBPMAPSpO2 Value36.346542035/7196% Date/Time01/28 8: 8: 8: 8: 8:07 Range(35.9C [...] ----- Mn/Dy/Year TimeIntakeOutputNet Jan 28, 2022 6:00 [id number] Jan 27, 2022 10:00 [id number] Jan 27, 2022 2:00 [id number] The Intake and Output Totals for the last 24 hours are: IntakeOutputNet [id number] Physical Exam by System: Constitutional: Well developed, [...] of 123 at time of discharge from [place] was 132 Shortness of breath Possible pneumonia Hypertension DiabetesWith last hemoglobin A1c 7.3 Chronic pain Anemia of chronic disease on Epogen injections monthly Plan Hyponatremia Sodium has improved to 130 with fluid restriction only Urine sodium is 49 it with an osmolality of 418 Does have a compone (more content not included)... [facility] GLUCOSE-POCTon 01-28-2022 Glucose [Mass/Vol] 215 mg/dL High 74 - 99 [facility] Comment on above: Performed By: #### Nancy LAYNE #### [address] [address] Glucose [Mass/Vol] 143 mg/dL High 74 - 99 [facility] Comment on above: Performed By: #### Sophia CASILLAS #### [address] [address] Glucose [Mass/Vol] 177 mg/dL High 74 - 99 [facility] Comment on above: Performed By: #### G ROVERTO #### [address] [address] Glucose [Mass/Vol] 81 mg/dL Normal 74 - 99 [facility] Comment on above: Performed By: #### G ROVERTO #### [address] [address] OSMOLALITY,URINE SPOTon 01-16 OSMOLALITY,URINE SPOT 418 mOsm/kg Normal 200 - 1200 [facility] Comment on above: Performed By: #### G ROVERTO #### [address] [address] CBCon 01-27-2022 Erythrocyte distribution width (RBC) [Ratio] 14.0 % Normal 11.5 - 14.5 [facility] Comment on above: Performed By: #### C BC #### [address] [address] Hematocrit (Bld) [Volume fraction] 31.1 % Low 36.0 - 46.0 [facility] Comment on above: Performed By: #### C BC #### [address] [address] Hemoglobin (Bld) [Mass/Vol] 9.8 g/dL Low 12.0 - 16.0 [facility] Comment on above: Performed By: #### C BC #### [address] [address] MCHC (RBC) [Mass/Vol] 31.5 g/dL Low 32.0 - 36.0 [facility] Comment on above: Performed By: #### C BC #### [address] [address] MCV (RBC) [Entitic vol] 98 fL Normal 80 - 100 [facility] Comment on above: Performed By: #### C BC #### [address] [address] Platelets (Bld) [#/Vol] 288 10*3/uL Normal 150 - 450 [facility] Comment on above: Performed By: #### C BC #### [address] [address] RBC 3.19 x10E12/L Low 4.00 - 5.20 [facility] Comment on above: Performed By: #### C BC #### [address] [address] WBC (Bld) [#/Vol] 7.0 10*3/uL Normal 4.4 - 11.3 [facility] Comment on above: Performed By: #### C BC #### [address] [address] COMPREHENSIVE PANELon 2021 Albumin [Mass/Vol] 3.6 g/dL Normal 3.4 - 5.0 [facility] Comment on above: Performed By: #### C MP #### [address] [address] ALP [Catalytic activity/Vol] 44 U/L Normal 33 - 136 [facility] Comment on above: Performed By: #### C MP #### [address] [address] ALT [Catalytic activity/Vol] 17 U/L Normal 7 - 45 [facility] Comment on above: Result Comment: Tate ents treated with Sulfasalazine may generate falsely decreased results for ALT. Performed By: #### C MP #### [address] [address] Anion gap [Moles/Vol] 9 mmol/L Low 10 - 20 [facility] Comment on above: Performed By: #### C MP #### [address] [address] AST [Catalytic activity/Vol] 13 U/L Normal 9 - 39 [facility] Comment on above: Performed By: #### C MP #### [address] [address] Bilirubin [Mass/Vol] 0.4 mg/dL Normal 0.0 - 1.2 [facility] Comment on above: Performed By: #### C MP #### [address] [address] Calcium [Mass/Vol] 9.3 mg/dL Normal 8.6 - 10.3 [facility] Comment on above: Performed By: #### C MP #### [address] [address] Chloride [Moles/Vol] 87 mmol/L Low 98 - 107 [facility] Comment on above: Performed By: #### C MP #### [address] [address] Creatinine [Mass/Vol] 2.03 mg/dL High 0.50 - 1.05 [facility] Comment on above: Performed By: #### C MP #### [address] [address] GFR/1.73 sq M.predicted among non-blacks MDRD (S/P/Bld) [Vol rate/Area] 25 mL/min/{1.73_m2} Abnormal >90 [facility] Comment on above: Result Comment: CALC ULATIONS OF ESTIMATED GFR ARE PERFORMED USING THE 2020 CKD-EPI STUDY REFIT EQUATION WITHOUT THE RACE VARIABLE FOR THE IDMS-TRACEABLE CREATININE METHODS. https://jasn.asnjournals.org/content//ASN.315130 4963 Performed By: #### C MP #### [address] [address] Glucose [Mass/Vol] 189 mg/dL High 74 - 99 [facility] Comment on above: Performed By: #### C MP #### [address] [address] HCO3 (Bld) [Moles/Vol] 32 mmol/L Normal 21 - 32 [facility] Comment on above: Performed By: #### C MP #### [address] [address] Potassium [Moles/Vol] 4.1 mmol/L Normal 3.5 - 5.3 [facility] Comment on above: Performed By: #### C MP #### [address] [address] Protein [Mass/Vol] 5.9 g/dL Low 6.4 - 8.2 [facility] Comment on above: Performed By: #### C MP #### [address] [address] Sodium [Moles/Vol] 124 mmol/L Low 136 - 145 [facility] Comment on above: Performed By: #### C MP #### [address] [address] Urea nitrogen [Mass/Vol] 48 mg/dL High 6 - 23 [facility] Comment on above: Performed By: #### C MP #### [address] [address] Consult-Nephrologyon Consult-Nephrology Service: Service: Nephrology Consult: Consult requested by (Attending Name): Jairon Lopez Reason: reji vs ckd, hyponatremia, fluid overload History of Present Illness: HPI: VAL ERICKSON is a 76 year old Female history of chronic kidney disease stage IV, diabetes mellitus type 2, anemia, hypertension and chronic pain. She presented to the emergency room from the [facility] with complaints of increasing shortness of breath. On arrival to the emergency room labs were completed which demonstrated a sodium of 128, BUN 49, creatinine 1.9. She has been seen in consultation for hyponatremia and acute kidney injury. 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 Labs reviewed for the last year and her creatinine ranges from 1.8-2.0, her sodium has been within normal limits except for the last month or so, in November her sodium was 136, December 27 her sodium was 123 and on the it was 132. She was hospitalized for acute pain in [place] for acute pain. She had been living [...] [facility]. She did have a productive cough of [...] Sodium: Rash Objective: Objective Information: T PRBPMAPSpO2 Value35.33744857/8897% Date/Time01/27 4: 4: 4: 4: 4:00 Range(35.9C [...] -------- 1 (more content not included)... [facility] Daily Progress Note-General Internal Medicineon 01-27-2022 Daily [...] dizziness. Objective Data: Objective Information: T PRBPMAPSpO2 Value37.02821184/7397% Date/Time01/27 7: 7: 7: 7: 7:25 Range(35.9C [...] Signatures: Zulfiqa (more content not included)... [facility] GLUCOSE-[facility] 01-27-2022 Glucose [Mass/Vol] 152 mg/dL High 74 - 99 [facility] Comment on above: Performed By: #### C MP #### [address] [address] Glucose [Mass/Vol] 188 mg/dL High 74 - 99 [facility] Comment on above: Performed By: #### G ROVERTO #### [address] [address] Glucose [Mass/Vol] 163 mg/dL High 74 - 99 [facility] Comment on above: Performed By: #### G ROVERTO #### [address] [address] SODIUM, URINE SPOTon 022 CREATININE,URINE 75.0 mg/dL Normal 20.0 - 320.0 [facility] Comment on above: Performed By: #### G ROVERTO #### [address] [address] Sodium (U) [Moles/Vol] 49 mmol/L Normal Not Established [facility] Comment on above: Performed By: #### G ROVERTO #### [address] [address] SODIUM/CREAT RATIO 65 mmol/g Creat Normal Not Established [facility] Comment on above: Performed By: #### G ROVERTO #### [address] [address] CBC AND DIFFERENTIALon 01-26 % AUTOMATED IMMATURE GRAN 0.5 % Normal 0.0 - 0.9 [facility] Comment on above: Result Comment: Mely ture Granulocyte Count (IG) includes promyelocytes, myelocytes and metamyelocytes but does not include bands. Percent differential counts (%) should be interpreted in the context of the absolute cell counts (cells/L). Performed By: #### C BCDF #### [address] [id number] Basophils (Bld) [#/Vol] 0.04 10*3/uL Normal 0.00 - 0.10 [facility] Comment on above: Performed By: #### C BCDF #### [address] [address] Basophils/100 WBC (Bld) 0.5 % Normal 0.0 - 2.0 [facility] Comment on above: Performed By: #### C BCDF #### [address] [address] Eosinophils (Bld) [#/Vol] 0.18 10*3/uL Normal 0.00 - 0.40 [facility] Comment on above: Performed By: #### C BCDF #### [address] [address] Eosinophils/100 WBC (Bld) 2.4 % Normal 0.0 - 6.0 [facility] Comment on above: Performed By: #### C BCDF #### [address] [address] Erythrocyte distribution width (RBC) [Ratio] 14.0 % Normal 11.5 - 14.5 [facility] Comment on above: Performed By: #### C BCDF #### [address] [address] Hematocrit (Bld) [Volume fraction] 30.9 % Low 36.0 - 46.0 [facility] Comment on above: Performed By: #### C BCDF #### [address] [address] Hemoglobin (Bld) [Mass/Vol] 10.0 g/dL Low 12.0 - 16.0 [facility] Comment on above: Performed By: #### C BCDF #### [address] [address] Lymphocytes (Bld) [#/Vol] 0.91 10*3/uL Normal 0.80 - 3.00 [facility] Comment on above: Performed By: #### C BCDF #### [address] [address] Lymphocytes/100 WBC (Bld) 12.1 % Normal 13.0 - 44.0 [facility] Comment on above: Performed By: #### C BCDF #### [address] [address] MCHC (RBC) [Mass/Vol] 32.4 g/dL Normal 32.0 - 36.0 [facility] Comment on above: Performed By: #### C BCDF #### [address] [address] MCV (RBC) [Entitic vol] 98 fL Normal 80 - 100 [facility] Comment on above: Performed By: #### C BCDF #### [address] [address] Monocytes (Bld) [#/Vol] 0.67 10*3/uL Normal 0.05 - 0.80 [facility] Comment on above: Performed By: #### C BCDF #### [address] [address] Monocytes/100 WBC (Bld) 8.9 % Normal 2.0 - 10.0 [facility] Comment on above: Performed By: #### C BCDF #### [address] [address] Neutrophils (Bld) [#/Vol] 5.67 10*3/uL High 1.60 - 5.50 [facility] Comment on above: Result Comment: Perc ent differential counts (%) should be interpreted in the context of the absolute cell counts (cells/L). Performed By: #### C BCDF #### [address] [address] Neutrophils/100 WBC (Bld) 75.6 % Normal 40.0 - 80.0 [facility] Comment on above: Performed By: #### C BCDF #### [address] [address] Platelets (Bld) [#/Vol] 263 10*3/uL Normal 150 - 450 [facility] Comment on above: Performed By: #### C BCDF #### [address] [address] RBC 3.17 x10E12/L Low 4.00 - 5.20 [facility] Comment on above: Performed By: #### C BCDF #### [address] [address] WBC (Bld) [#/Vol] 7.5 10*3/uL Normal 4.4 - 11.3 [facility] Comment on above: Performed By: #### C BCDF #### [address] [address] CHEST 1 VIEWon 01-26-2022 CHEST 1 VIEW STUDY: Chest Radiograph; 01/26/2022, 12:37PM INDICATION: Pneumonia. Shortness of breath. COMPARISON: None Available ACCESSION NUMBER(S): [id number] ORDERING CLINICIAN: REYNALDO BOLAÑOS DO TECHNIQUE: Frontal [...] Electronically signed by: JEANIE HUERTA DO [facility] COMPREHENSIVE PANELon 2021 Albumin [Mass/Vol] 3.6 g/dL Normal 3.4 - 5.0 [facility] Comment on above: Performed By: #### C BCDF #### [address] [address] ALP [Catalytic activity/Vol] 45 U/L Normal 33 - 136 [facility] Comment on above: Performed By: #### C BCDF #### [address] [address] ALT [Catalytic activity/Vol] 18 U/L Normal 7 - 45 [facility] Comment on above: Result Comment: Ttae ents treated with Sulfasalazine may generate falsely decreased results for ALT. Performed By: #### C BCDF #### [address] [address] Anion gap [Moles/Vol] 10 mmol/L Normal 10 - 20 [facility] Comment on above: Performed By: #### C BCDF #### [address] [address] AST [Catalytic activity/Vol] 14 U/L Normal 9 - 39 [facility] Comment on above: Performed By: #### C BCDF #### [address] [address] Bilirubin [Mass/Vol] 0.3 mg/dL Normal 0.0 - 1.2 [facility] Comment on above: Performed By: #### C BCDF #### [address] [address] Calcium [Mass/Vol] 9.4 mg/dL Normal 8.6 - 10.3 [facility] Comment on above: Performed By: #### C BCDF #### [address] [address] Chloride [Moles/Vol] 91 mmol/L Low 98 - 107 [facility] Comment on above: Performed By: #### C BCDF #### [address] [address] Creatinine [Mass/Vol] 1.90 mg/dL High 0.50 - 1.05 [facility] Comment on above: Performed By: #### C BCDF #### [address] [address] GFR/1.73 sq M.predicted among non-blacks MDRD (S/P/Bld) [Vol rate/Area] 27 mL/min/{1.73_m2} Abnormal >90 [facility] Comment on above: Result Comment: CALC ULATIONS OF ESTIMATED GFR ARE PERFORMED USING THE 2020 CKD-EPI STUDY REFIT EQUATION WITHOUT THE RACE VARIABLE FOR THE IDMS-TRACEABLE CREATININE METHODS. https://jasn.asnjournals.org/content/early//ASN.552298 2446 Performed By: #### C BCDF #### [address] [address] Glucose [Mass/Vol] 106 mg/dL High 74 - 99 [facility] Comment on above: Performed By: #### C BCDF #### [address] [address] HCO3 (Bld) [Moles/Vol] 32 mmol/L Normal 21 - 32 [facility] Comment on above: Performed By: #### C BCDF #### [address] [address] Potassium [Moles/Vol] 4.6 mmol/L Normal 3.5 - 5.3 [facility] Comment on above: Performed By: #### C BCDF #### [place] [address] Protein [Mass/Vol] 6.3 g/dL Low 6.4 - 8.2 [facility] Comment on above: Performed By: #### C BCDF #### [place] [address] Sodium [Moles/Vol] 128 mmol/L Low 136 - 145 [facility] Comment on above: Result Comment: Conf irmed by repeat analysis Performed By: #### C BCDF #### [place] [address] Urea nitrogen [Mass/Vol] 49 mg/dL High 6 - 23 [facility] Comment on above: Performed By: #### C BCDF #### [place] [address] CORONAVIRUS 2019 BY PCRon SARS-CoV-2 (COVID-19) RNA ALY+probe Ql (Unsp spec) Canceled [facility] Comment on above: Order Comment: TEST CORONAVIRUS 2019 BY PCR WAS CANCELLED, 01/26/2022 12:19 Result Comment: . This test has received FDA Emergency Use Authorization (EUA) and has been verified by [facility]. This test is only authorized for the duration of time that circumstances exist to justify the authorization of the emergency use of in vitro diagnostic tests for the detection of SARS-CoV-2 virus and/or diagnosis of COVID-19 infection under section 564(b)(1) of the Act, 21 U.S.C. 360bbb-3(b)(1), unless the authorization is terminated or revoked sooner. [facility] is certified under CLIA-88 as qualified to perform high complexity testing. Testing is performed in the [facility] laboratory located at [address] [place] [address]. SARS-CoV-2/Flu/RSV Multiplex Test: Fact sheet for providers: https://www.fda.gov/media/015690/download Fact sheet for patients: https://www.fda.gov/media/023745/download Performed By: #### C MP #### [address] [address] Lab Specimen Source Nasal, Nasopharyngeal [facility] Comment on above: Order Comment: TEST CORONAVIRUS 2019 BY PCR WAS CANCELLED, 01/26/2022 12:19 Performed By: #### C MP #### [address] [address] CREATINE KINASEon 01-26-2022 CK [Catalytic activity/Vol] 69 U/L Normal 0 - 215 [facility] Comment on above: Performed By: #### G ROVERTO #### [address] [address] Covid 19 Resultson SARS-CoV-2 (COVID-19) RNA ALY+probe [...] You may also be contacted by the [facility] to see if any of your close [...] or Naproxen (Aleve) can also be used. Krws-wvt-qgudvav cough and cold medicines can be used according to the instructions on the package. Some zqel-xeo-lianryb medicines also contain acetaminophen. Make sure you [...] water are not available, use alcohol-based hand college intern. Avoid touching your eyes, nose, and mouth [...] 24 lili (more content not included)... [facility] Discharge Planning [id number] 1 03-28-2021 Discharge Planning Note2 Discharge Planning: Planned Dispositionskilled/rehab /extended care Discharge Transportation Needed from [facility] Anticipated Discharge [id number] Discharge Planning 01/27/22@ [address]/SW note. Reviewed patient in care rounds this morning and anticipate d/c on monday 01/29. SW reviewed chart and then met with Patient. Sw introduced self and explained our role in the discharge process. Patient shared that she is at [facility] for therapy and will return there. She said that she was close to being finished with her stay there. She said that she is walking with her walker and is hoping that she will not have to stay there too long. SW did call [facility] and spoke with nurse to confirm that patient is there under her skilled stay and she is . SW did contact MILADY -Tanya to make referral to [facility]. Plan is for patient to return to [facility] when ready. CT/SW to follow. Linda Fournier MONTESSORI TEACHER,BARREL LINE OPERATOR 01/27/2022 1259 DSC: Built and sent return referral to [facility], awaiting response. Melita Salcedo Care Navigation Team [phone] 01/29/2022 1200: Care Transitions - Social Work: Pt reviewed in care rounds mtg at midday today. Pt medically appropriate for d/c. SW met with Pt who, when provided with list of potential referral choices, confirmed that Pt wishes to return to [facility]. SW also reviewed IMM with Pt. SW phoned [facility] who confirmed that they only need orders for Pt to return today; no HENS needed as Pt is returning. SW asked [facility] to attach and send orders via Allscripts. Nursing to perform updated COVID test and arrange transport. 1215: Per charge nurse/Marisel, Pt's son wishes to meet with SW. SW met with Pt and Pt's son at bedside. Pt and Pt's son confirmed that Pt is not enjoying Pt's time at [facility]. However, Pt and son state that Pt's rehab stay may not be much longer, and that trying to change to new facility at this stage may be more disruptive than it is helpful. SW offered support and understanding. SW educated Pt and Pt's son re: clgapzwi-gz-[id number] transfer possibility, if Pt wishes to transfer after returning. Pt and son expressed understanding. - 1340: SW attached and sent COVID-negative test results to [facility] via Allscripts. Nursing has confirmed transport time for 1430. SW updated [facility] and Pt's son. Plan for Pt to return to [facility] at [address] needs foreseen. CT available upon request. Johana Hobson BARREL LINE OPERATOR Discharge Note: 01/29/2022 1447 Discharged via stretcher by [facility], ambulette transport, to [facility], paperwork packet sent with transporter, personal belongings taken by transporter, no distress noted, no complaints voiced. Fredo NARAYANnursing professor: Discharge Planning Assessment [id number] Primary Contact Name and NumberRd (son): [phone](1) Lives Withalone(1) Living Arrangementsnursing home; [facility](1) Stated Reason for AdmissionCrystal Care (1) Arrived Fromemergency department (1) Resource/Environmental Concernsnone(1) Anticipated Transition Toinpatient rehabilitation facility(1) Services Anticipated at Transitionnone(1) Nursing Checklist: Lines/Cathetersremoved/a ppropriate for next level of care Discharge Med Rec Reconciled with Marcos Patient has Prescriptionsyes Transportation for Discharge Conf[facility]ye[facility] Involvementpatient disposition other than home Discharge Documentation: Discharge/Transfer Date/[id number] 14:47 Transportation Methodtransportation service Discharge Modestretcher Code StatusCode Status order at time of discharge: Full Code Discharge Order Writtenye [place] DNR Form Sent with Patient and/or Familyn/a Valuables/Medications/Be longings Returnedyes [facility] Electronic Signatures: Yue Leahy (SPECIAL DAY CLASS TEACHER) (Signed 28-Jan-2022 07:53) Authored: Discharge Planning Tamra Lemos (RN) (Signed 29-Jan-2022 15:31) Authored: Discharge Planning, Nursing Checklist, Discharge Documentation Linda Harris (BARREL LINE OPERATOR) (Signed 27-Jan-2022 12:24) Authored: Discharge Planning Melita Salcedo (COOR) (Signed 27-Jan-2022 12:54) Authored: Discharge Planning Johana Hobson (BARREL LINE OPERATOR) (Signed 29-Jan-2022 13:44) Authored: Discharge Planning Lynn Ramirez (RN) (Signed 29-Jan-2022 14:47) Authored: Discharge Planning, Discharge Documentation Donald Garg (RN) (Signed 26-Jan-2022 16:39) Authored: Discharge Planning, Assessment Last Updated: 29-Jan-2022 15:31 by Tamra Lemos (RN) References: 1. Data Referenced From Patient Profile - Adult v2 26-Jan-2022 16:27 [facility] GLUCOSE-POCTon 01-26-2022 Glucose [Mass/Vol] 192 mg/dL High 74 - 99 [facility] Comment on above: Performed By: #### U ARFX #### [address] [address] HEMOGLOBIN A1Con 01-26-2022 Glucose [Mass/Vol] 163 mg/dL Normal [facility] Comment on above: Performed By: #### G ROVERTO #### [address] [address] HbA1c (Bld) [Mass fraction] 7.3 % [facility] Comment on above: Result Comment: Diag nosis of Diabetes-Adults Non-Diabetic: < or = 5.6% Increased risk for developing diabetes: 5.7-6.4% Diagnostic of diabetes: > or = 6.5% . Monitoring of Diabetes Age (y) Therapeutic Goal (%) Adults: >18 <7.0 Pediatrics: 13-18 <7.5 7-12 <8.0 0- 6 7.5-8.5 [place] [employer]. Diabetes Care 33(S1), Mar 2009. Performed By: #### G ROVERTO #### [place] [id number] INFLUENZA A/B, COVID 2019 PC R,SYMPTOMATICon 01-26-2022 INFLUENZA A, PCR Not detected Normal Not Detected [facility] Comment on above: Result Comment: Resp iratory virus testing is performed routinely by PCR for Influenza A/B and RSV. Not Detected results do not preclude Influenza A/B or RSV infections since the adequacy of sample collection or low viral burden may impact the clinical sensitivity of this test method. Performed By: #### C OINP #### [place] [address] INFLUENZA B, PCR Not detected Normal Not Detected [facility] Comment on above: Result Comment: Resp iratory virus testing is performed routinely by PCR for Influenza A/B and RSV. Not Detected results do not preclude Influenza A/B or RSV infections since the adequacy of sample collection or low viral burden may impact the clinical sensitivity of this test method. Performed By: #### C OINP #### [place] [address] SARS-CoV-2 (COVID-19) RNA ALY+probe Ql (Unsp spec) Not detected Normal Not Detected [facility] Comment on above: Result Comment: . This test has received FDA Emergency Use Authorization (EUA) and has been verified by [facility]. This test is only authorized for the duration of time that circumstances exist to justify the authorization of the emergency use of in vitro diagnostic tests for the detection of SARS-CoV-2 virus and/or diagnosis of COVID-19 infection under section 564(b)(1) of the Act, 21 U.S.C. 360bbb-3(b)(1), unless the authorization is terminated or revoked sooner. [facility] is certified under CLIA-88 as qualified to perform high complexity testing. Testing is performed in the [facility] laboratory located at [address] [place] [address]. SARS-CoV-2/Flu/RSV Multiplex Test: Fact sheet for providers: https://www.fda.gov/media/480763/download Fact sheet for patients: https://www.fda.gov/media/903756/download Performed By: #### C OINP #### [place] [address] Lab Specimen Source Nasal, Nasopharyngeal [facility] Comment on above: Performed By: #### C OINP #### [place] [address] LACTATEon 01-26-2022 Lactate [Moles/Vol] 0.4 mmol/L Normal 0.4 - 2.0 [facility] Comment on above: Result Comment: Alba puncture immediately after or during the administration of Metamizole may lead to falsely low results. Testing should be performed immediately prior to Metamizole dosing. Performed By: #### L ACT #### [place] [address] Order Reconciliationon 01-26 Order Reconciliation Page 1 [...] oral tablet 1 tab(s) orally once a [id number] Reviewed and Held albuterol 2.5 mg/3 mL (0.083%) inhalation solution 3 milliliter(s) inhaled every 4 hours, As Needed - for shortness of [id number] Reviewed and Held Aleve 220 mg oral tablet 1 tab(s) orally every 24 hours, As Needed - for pain 26-Jan-2022 Reviewed and Held amoxicillin 500 mg oral capsule 1 cap(s) orally 2 times a [id number] Reviewed and Held atorvastatin 20 mg oral tablet 1 tab(s) orally once a [id number] Atorvastatin Tablet (LIPITOR)DOSE = 20 mg Oral Dailyatorvastatin 20 mg oral tablet continued as the inpatient order Atorvastatin calcitriol 0.5 mcg oral capsule 1 cap(s) orally once a [id number]-[id number] Calcitriol Capsule (ROCALTROL)DOSE = 0.5 microgram(s) Oral Dailycalcitriol 0.5 mcg oral capsule continued as the inpatient order Calcitriol Colace 100 mg oral capsule 1 cap(s) orally once a [id number]-Cja-1403 Docusate Capsule (COLACE)DOSE = 100 mg Oral 2 Times a DayColace 100 mg oral capsule continued as the inpatient order Docusate cyclobenzaprine 5 mg oral tablet 1 tab(s) orally every 8 hours, As Needed - for -[id number] Cyclobenzaprine Tablet (FLEXERIL)DOSE = 5 mg Oral 3 Times a Day, PRN spasmcyclobenzaprine 5 mg oral tablet continued as the inpatient order Cyclobenzaprine Epogen 10,000 units/mL preservative-free injectable solution 1.3 milliliter(s) injectable every 28 [id number]-[id number] Reviewed and Held erythromycin 500 mg oral tablet 1 tab(s) orally every 12 vrmyp05-Vsl-0827 Reviewed and Held furosemide 20 mg oral tablet 1 tab(s) orally once a kfm11-Jqq-6178 Reviewed and Held gabapentin 300 mg oral capsule 1 cap(s) orally 3 times a ikn10-Wfh-5517 Gabapentin Capsule (NEURONTIN)DOSE = 300 mg Oral 3 Times a Daygabapentin 300 mg oral capsule continued as the inpatient order Gabapentin HumaLOG KwikPen 100 units/mL injectable solution sliding pomkr54-Bjx-0164 Reviewed and Held Lantus Solostar Pen 100 units/mL subcutaneous solution 40 unit(s) subcutaneous once a day (at bedtime)26-Jan-2022 Insulin Glargine (Lantus) Injectable DOSE = 40 unit(s) SubCutaneous At BedtimeNotes from Pharmacy: HIGH ALERT Lantus Solostar Pen 100 units/mL subcutaneous solution continued as the inpatient order Insulin Glargine (Lantus) Injectable lidocaine 4% patch Apply topically to affected area once a ahx30-Hkb-0424 Reviewed and Held Melatonin 10 mg oral capsule 1 cap(s) orally once a day (at bedtime) 26-Jan-2022 Melatonin TabletDOSE = 10 mg Oral Daily 1800, PRN Insomnia Melatonin 10 mg oral capsule continued as the inpatient order Melatonin Milk of Magnesia 8% oral suspension 30 milliliter(s) orally once a day, As Needed - for [id number] Reviewed and Held pioglitazone 30 mg oral tablet 1 tab(s) orally once a ttx54-Rhz-9230 Reviewed and Held Senna 8.6 mg oral [...] Provider For: blood glucose Less Than 70mg/dL [place] Hypoglycemia Interventions. cefTRIAXone 2 gram/Dextrose 5% IVPB Premixed Soln 50 mL (ROCEPHIN)Every 24 HoursRecommended Infusion Time: 30 minute(s) Communication Order Every 15 Minutes, PRN, BG 41-70 mg/dLGive 15 Grams of Carbohy (more content not included)... [facility] Patient Profile - Adult v2on 01-26-2022 Patient Profile - Adult v2 Profile: Initial Info: How to be AddressedJudy Spoken Language PreferredEnglish Stated Reason for AdmissionCrystal Care Primary Contact Name and NumberRd (son): [phone] Other Contact Names and NumbersMaxi (son): [phone] Wants Family/Rep Notified of Admissionn/a; family present Notify PCPDr. Turpin (BURAK Dey) Kidney Doctor in [place] Informed of Patient Visiting Rightsyes Arrived Fromemergency department Patient Belongingsremains with patient Patient Belongings Remaining with Patientvision aids; gold colored bifocals Medications Brought to Hospitalno General Health: Blood Avoidance/Restrictionsno ne Weight in kg123.6 kilogram(s) Weight in hol486.4 pound(s) Weight Methodactual (measured) Scale Typebed Height [...] Support/Comfortchild(cindy ) Lives Withalone Living Arrangementsnursing home; [facility] Services Anticipated at Transitionnone [facility] Significant IndicatorsComplete Information Review: Allergies, [...] Risk Screen - Adult Emergency 26-Jan-2022 12:27 [facility] Provider Note - ED v3on 01-16 [...] (Pt to ED per [facility] from [facility]. She reports that about 7 days ago she started feeling winded with activity. She also felt SOB while lying flat, so she started sleeping in her chair. MARTINEZ got worse on Saturday night (01/21/22). She had chest X-ray and labs drawn the next day. X-ray showed a Pneumonia per [facility] staff, so she was started on Amoxil. [...] reviewed t (more content not included)... [facility] Risk Screen - Adult Emergenc n 01-26-2022 [...] an injured patient at a Trauma Center ([facility]/[place] /[place]): no Electronic Signatures: Dania Ibanez (RN) (Signed 26-Jan-2022 12:28) Authored: Preferred Language, Patient Preferred Pharmacy, Advanced Directives, Family Violence Adult, Learning Assessment (Patient), Learning Assessment (Other Learner), Pressure Injury/TB/Substance, Pressure Injury, CAGE Last Updated: 26-Jan-2022 12:28 by Dania Ibanez (SYLVAIN) [facility] TROPONIN I, HIGH SENSITIVITY on 01-26-2022 TROPONIN I, HIGH SENSITIVITY 50 ng/L High 0 - 13 [facility] Comment on above: Result Comment: . Less [...] performed using a different testing methodology at [facility] than at other [facility] hospitals. Direct result comparisons should only be made within the same method. Performed By: #### C #### [facility] [address] [place] [address] TROPONIN I, HIGH SENSITIVITY 42 ng/L High 0 - 13 [facility] Comment on above: Result Comment: . Less [...] performed using a different testing methodology at [facility] than at other [facility]. Direct result comparisons should only be made within the same method. repeated and verified Performed By: #### C #### [id number] [place] [address] Triage - EDon 01-26-2022 Triage - ED Quick Triage: The patient and/or guardian verbally acknowledges placement for services into the following (when Urgent Care Service hours are operating):emergency department Chart Review: ARRIVAL INFORMATION Mode of Arrival: ambulance [facility] Name: [facility] VAL ERICKSON is a Female patient with a chief complaint of other (Pt to ED per [facility] from [facility]. She reports that about 7 days ago she started feeling winded with activity. She also felt SOB while lying flat, so she started sleeping in her chair. MARTINEZ got worse on Saturday night (01/21/22). She had chest X-ray and labs drawn the next day. X-ray showed a Pneumonia per [facility] staff, so she was started on Amoxil. [...] liters/minute. Weight: 271.1 pounds. Calculated 123.0 kg. Holland Coma Scale: Best Eye Response: (E4) spontaneous Best Motor Response: (M6) obeys commands Best Verbal Response: (V5) oriented Holland Score: 15 Cough lasting greater than 3 [...] 26-Jan-2022 12:14 by Paz Cardenas (RN) Normal [facility] UA MICROSCOPICon 01-26-2022 BACTERIA 1+ /HPF [facility] Comment on above: Performed By: #### G ROVERTO #### [address] [address] RBC 1 /HPF Normal 0-5 [facility] Comment on above: Performed By: #### G ROVERTO #### [place] [id number] WBC 9 /HPF Abnormal 0-5 [facility] Comment on above: Performed By: #### G ROVERTO #### [place] [id number] URINALYSIS WITH CULTURE IF I NDICATEDon 01-26-2022 Appearance (U) CLEAR Normal CLEAR [facility] Comment on above: Performed By: #### U ARFX #### [place] [address] Bilirubin Ql (U) Negative Normal NEGATIVE [facility] Comment on above: Performed By: #### U ARFX #### [address] [address] Color (U) Straw Normal STRAW,YELLOW [facility] Comment on above: Performed By: #### U ARFX #### [address] [address] Glucose Ql (U) Negative Normal NEGATIVE [facility] Comment on above: Performed By: #### U ARFX #### [address] [address] Hemoglobin Ql (U) Negative Normal NEGATIVE [facility] Comment on above: Performed By: #### U ARFX #### [address] [address] Ketones Ql (U) Negative Normal NEGATIVE [facility] Comment on above: Performed By: #### U ARFX #### [address] [address] Leukocyte esterase Test strip Ql (U) TRACE Abnormal NEGATIVE [facility] Comment on above: Performed By: #### U ARFX #### [address] [address] Nitrite Ql (U) Negative Normal NEGATIVE [facility] Comment on above: Performed By: #### U ARFX #### [address] [address] pH (U) 5.0 [pH] Normal 5.0 - 8.0 [facility] Comment on above: Performed By: #### U ARFX #### [address] [address] Protein Ql (U) Negative Normal NEGATIVE [facility] Comment on above: Performed By: #### U ARFX #### [place] [id number] Specific gravity (U) [Rel density] 1.011 Normal 1.005 - 1.035 [facility] Comment on above: Performed By: #### U ARFX #### [address] [address] Urobilinogen (U) [Mass/Vol] mg/dL Normal 0.0 - 1.9 [facility] Comment on above: Performed By: #### U ARFX #### [place] [id number] URINE CULTURE,BACTERIALon URINE CULTURE,BACTERIAL PATIENT: VAL ERICKSON LOCATION: [address]#: [id number] : 43 AGE: SEX: F ORDERED BY: [...] DOSE DEPENDENT NS=NONSUSCEPTIBLE X=REPORTED IN ERROR [facility] Comment on above: Performed By: #### C BC #### [place] [address] Troponin I High Sensitivityo n 01-25-2022 Troponin I High Sensitivity 46 pg/mL High 0-15 [facility] Comment on above: Result Comment: PERF ORMED BY: [place] [address] PATHOLOGIST DIRECTOR OF CUSTOMER ACQUISITION ROSEMARIE SOLANO M.D. Performed By: #### H S TROP #### [facility] [address] Troponin I.cardiac [Mass/vol ume] in Serum or Plasma by High sensitivity methodOrdered By: Issa Bonilla on 01-25-2022 Troponin I.cardiac High sensitivity method [Mass/Vol] 46 pg/mL 0-15 [facility] B-Type Natriuretic Peptideon 01-22-2022 Natriuretic peptide B (Bld) [Mass/Vol] 725.0 pg/mL High 5-100 [facility] Comment on above: Result Comment: PERF ORMED BY: [place] [address] PATHOLOGIST DIRECTOR OF CUSTOMER ACQUISITION ROSEMARIE SOLANO M.D. Performed By: #### C MP, CBC, HS TROP, BNP #### [place] [address] [place] Basophils Auto (Bld) [#/Vol] Ordered By: Issajessie Bonilla on 01-22-2022 Basophils (Bld) [#/Vol] 0.0 10*3/uL 0.0-0.2 [facility] Basophils/100 WBC Auto (Bld) Ordered By: Issajessie Almanzae on 01-22-2022 Basophils/100 WBC (Bld) 0.5 % . [facility] Body fluid albumin measureme nt (mass/volume)Ordered By: Issa Bonilla on 01-22-2022 Albumin (Body fld) [Mass/Vol] 3.3 g/dL 3.2-5.5 [facility] Complete Blood Count Auto Di ffon 01-22-2022 Basophils (Bld) [#/Vol] 0.0 10*3/uL Normal 0.0-0.2 [facility] Comment on above: Result Comment: PERF ORMED BY: [place] [address] PATHOLOGIST DIRECTOR OF CUSTOMER ACQUISITION ROSEMARIE SOLANO M.D. Performed By: #### C MP, CBC, HS TROP, BNP #### [place] [address] [place] Basophils/100 WBC (Bld) 0.5 % Normal . [facility] Comment on above: Performed By: #### C MP, CBC, HS TROP, BNP #### [facility] [address] [place] [address] [place] Eosinophils (Bld) [#/Vol] 0.1 10*3/uL Normal 0.0-0.45 [facility] Comment on above: Performed By: #### C MP, CBC, HS TROP, BNP #### [place] [address] [place] Eosinophils/100 WBC (Bld) 1.9 % Normal . [facility] Comment on above: Performed By: #### C MP, CBC, HS TROP, BNP #### [address] Erythrocyte distribution width (RBC) [Ratio] 15.5 % High 11.9-15.3 [facility] Comment on above: Performed By: #### C MP, CBC, HS TROP, BNP #### [address] Hematocrit (Bld) [Volume fraction] 31.4 % Low 34.0-46.4 [facility] Comment on above: Performed By: #### C MP, CBC, HS TROP, BNP #### [address] Hemoglobin (Bld) [Mass/Vol] 10.1 g/dL Low 11.8-15.4 [facility] Comment on above: Performed By: #### C MP, CBC, HS TROP, BNP #### [address] Lymphocytes (Bld) [#/Vol] 1.1 10*3/uL Normal 1.00-4.8 [facility] Comment on above: Performed By: #### C MP, CBC, HS TROP, BNP #### [address] Lymphocytes/100 WBC (Bld) 17.1 % Normal . [facility] Comment on above: Performed By: #### C MP, CBC, HS TROP, BNP #### [address] MCH (RBC) [Entitic mass] 31.2 pg Normal 24.7-34.3 [facility] Comment on above: Performed By: #### C MP, CBC, HS TROP, BNP #### [address] MCV (RBC) [Entitic vol] 97.1 fL Normal 80-100 [facility] Comment on above: Performed By: #### C MP, CBC, HS TROP, BNP #### [facility] [address] Mean Corpuscular HGB Conc 32.1 g/dL Normal 32.0-35.0 [facility] Comment on above: Performed By: #### C MP, CBC, HS TROP, BNP #### [facility] [address] Monocytes (Bld) [#/Vol] 0.6 10*3/uL Normal 0.0-0.8 [facility] Comment on above: Performed By: #### C MP, CBC, HS TROP, BNP #### [address] Monocytes/100 WBC (Bld) 9.1 % Normal . [facility] Comment on above: Performed By: #### C MP, CBC, HS TROP, BNP #### [address] Neutrophils (Bld) [#/Vol] 4.7 10*3/uL Normal 1.8-7.7 [facility] Comment on above: Performed By: #### C MP, CBC, HS TROP, BNP #### [address] Neutrophils/100 WBC (Bld) 71.4 % Normal . [facility] Comment on above: Performed By: #### C MP, CBC, HS TROP, BNP #### [place] [address] [place] Nucleated RBC/100 WBC (Bld) [Ratio] 0.1 % Normal 0-0.5 [facility] Comment on above: Performed By: #### C MP, CBC, HS TROP, BNP #### [place] [address] [place] Platelet mean volume (Bld) [Entitic vol] 7.7 fL Normal 6.3-10.7 [facility] Comment on above: Performed By: #### C MP, CBC, HS TROP, BNP #### [place] [address] [place] Platelets (Bld) [#/Vol] 304 10*3/uL Normal 150-450 [facility] Comment on above: Performed By: #### C MP, CBC, HS TROP, BNP #### [address] RBC (Bld) [#/Vol] 3.24 10*6/uL Low 3.60-5.00 [facility] Comment on above: Performed By: #### C MP, CBC, HS TROP, BNP #### [address] WBC (Bld) [#/Vol] 6.6 10*3/uL Normal 4.5-11.0 [facility] Comment on above: Performed By: #### C MP, CBC, HS TROP, BNP #### [address] Comprehensive Metabolic Pane shahana 01-22-2022 Albumin [Mass/Vol] 3.3 g/dL Normal 3.2-5.5 [facility] Comment on above: Performed By: #### C MP, CBC, HS TROP, BNP #### [address] Albumin/Globulin [Mass ratio] 0.9 {ratio} Normal [facility] Comment on above: Performed By: #### C MP, CBC, HS TROP, BNP #### [address] ALP [Catalytic activity/Vol] 49 U/L Normal 32-92 [facility] Comment on above: Result Comment: PERF ORMED BY: [place] [address] PATHOLOGIST DIRECTOR OF CUSTOMER ACQUISITION ROSEMARIE SOLANO M.D. Performed By: #### C MP, CBC, HS TROP, BNP #### [address] ALT [Catalytic activity/Vol] 26 U/L Normal 10-60 [facility] Comment on above: Performed By: #### C MP, CBC, HS TROP, BNP #### [address] [place] [address] [place] Anion gap [Moles/Vol] 16.3 mmol/L High 6.0-15.0 [facility] Comment on above: Performed By: #### C MP, CBC, HS TROP, BNP #### [facility] [address] AST [Catalytic activity/Vol] 18 U/L Normal 10-42 [facility] Comment on above: Performed By: #### C MP, CBC, HS TROP, BNP #### [address] Bilirubin [Mass/Vol] 0.3 mg/dL Normal 0.3-1.2 [facility] Comment on above: Performed By: #### C MP, CBC, HS TROP, BNP #### [address] Calcium [Mass/Vol] 9.5 mg/dL Normal 8.2-10.2 [facility] Comment on above: Performed By: #### C MP, CBC, HS TROP, BNP #### [address] Chloride [Moles/Vol] 94 mmol/L Low 95-114 [facility] Comment on above: Performed By: #### C MP, CBC, HS TROP, BNP #### [address] CO2 [Moles/Vol] 25.4 mmol/L Normal 22.0-30.0 [facility] Comment on above: Performed By: #### C MP, CBC, HS TROP, BNP #### [facility] [address] [place] [address] Creatinine [Mass/Vol] 1.94 mg/dL High 0.44-1.03 [facility] Comment on above: Performed By: #### C MP, CBC, HS TROP, BNP #### [facility] [address] [place] [address] [place] Estimated GFR ( Isabel[place] 30 Normal [facility] Comment on above: Result Comment: GFR estimated reference range: According to KDOQI guidelines, <60 ml/min/1.73m2 is sufficient to diagnose a patient with chronic kidney disease. Performed By: #### C MP, CBC, HS TROP, BNP #### [facility] [address] Estimated GFR (Non- Am 25 [facility] Comment on above: Performed By: #### C MP, CBC, HS TROP, BNP #### [facility] [address] Globulin (S) [Mass/Vol] 3.5 g/dL [facility] Comment on above: Performed By: #### C MP, CBC, HS TROP, BNP #### [address] Glucose [Mass/Vol] 275 mg/dL High 70-100 [facility] Comment on above: Result Comment: [place] Glucose Reference Range is dependent on time and content of last meal. Glucose of more than 200 mg/dL in a nonstressed, ambulatory subject supports the diagnosis of Diabetes Mellitus. ADA recommended reference range Performed By: #### C MP, CBC, HS TROP, BNP #### [address] Potassium [Moles/Vol] 4.7 mmol/L Normal 3.5-5.1 [facility] Comment on above: Performed By: #### C MP, CBC, HS TROP, BNP #### [facility] [address] Protein [Mass/Vol] 6.8 g/dL Normal 6.1-7.9 [facility] Comment on above: Performed By: #### C MP, CBC, HS TROP, BNP #### [facility] [address] Sodium [Moles/Vol] 131 mmol/L Low 136-146 [facility] Comment on above: Performed By: #### C MP, CBC, HS TROP, BNP #### [facility] [address] Urea nitrogen [Mass/Vol] 43 mg/dL High 9-23 [facility] Comment on above: Performed By: #### C MP, CBC, HS TROP, BNP #### [facility] [address] Creatinine and Glomerular fi ltration rate.predicted panel (S/P/Bld)Ordered By: Issa Bonilla on 01-22-2022 Creatinine [Mass/Vol] 1.94 mg/dL 0.44-1.03 [facility] Eosinophils Auto (Bld) [#/Vo l]Ordered By: Issa Bonilla on 01-22-2022 Eosinophils (Bld) [#/Vol] 0.1 10*3/uL 0.0-0.45 [facility] Eosinophils/100 WBC Auto (Bl d)Ordered By: Issa Bonilla on 01-22-2022 Eosinophils/100 WBC (Bld) 1.9 % . [facility] Erythrocyte distribution wid th Auto (RBC) [Ratio]Ordered By: Issa Bonilla on 01-22-2022 Erythrocyte distribution width (RBC) [Ratio] 15.5 % 11.9-15.3 [facility] Estimated glomerular filtrat ion rate (GFR) non- AmericanOrdered By: Issa Bonilla on 01-22-2022 GFR/1.73 sq M.predicted among non-blacks MDRD (S/P/Bld) [Vol rate/Area] 25 mL/Min [facility] Globulin Calc (S) [Mass/Vol] Ordered By: Issa Bonilla on 01-22-2022 Globulin (S) [Mass/Vol] 3.5 g/dL [facility] Hematocrit Auto (Bld) [Volum e fraction]Ordered By: Issa Bonilla on 01-22-2022 Hematocrit (Bld) [Volume fraction] 31.4 % 34.0-46.4 [facility] Hemoglobin [Mass/volume] in BloodOrdered By: Issa Bonilla on 01-22-2022 Hemoglobin (Bld) [Mass/Vol] 10.1 g/dL 11.8-15.4 [facility] Laboratory - Chemistry and C hemistry - challengeOrdered By: Issa Bonilla on 01-22-2022 Natriuretic peptide B (Bld) [Mass/Vol] 725.0 pg/mL 5-100 [facility] Laboratory - Hematology and Cell countsOrdered By: Issa Bonilla on 01-22-2022 Nucleated RBC/100 WBC (Bld) [Ratio] 0.1 % 0-0.5 [facility] Leukocytes [#/volume] in Blo od by Automated countOrdered By: Issa Bonilla on 01-22-2022 WBC (Bld) [#/Vol] 6.6 10*3/uL 4.5-11.0 [facility] Lymphocytes Auto (Bld) [#/Vo l]Ordered By: Issa Bonilla on 01-22-2022 Lymphocytes (Bld) [#/Vol] 1.1 10*3/uL 1.00-4.8 [facility] Lymphocytes/100 WBC Auto (Bl d)Ordered By: Issa Bonilla on 01-22-2022 Lymphocytes/100 WBC (Bld) 17.1 % . [facility] MCH Auto (RBC) [Entitic mass ]Ordered By: Issa Bonilla on 01-22-2022 MCH (RBC) [Entitic mass] 31.2 pg 24.7-34.3 [facility] MCHC Auto (RBC) [Mass/Vol]Or dered By: Issa Bonilla on 01-22-2022 MCHC (RBC) [Mass/Vol] 32.1 g/dL 32.0-35.0 [facility] MCV Auto (RBC) [Entitic vol] Ordered By: Issa Bonilla on 01-22-2022 MCV (RBC) [Entitic vol] 97.1 fL 80-100 [facility] Monocytes Auto (Bld) [#/Vol] Ordered By: Issa Bonilla on 01-22-2022 Monocytes (Bld) [#/Vol] 0.6 10*3/uL 0.0-0.8 [facility] Monocytes/100 WBC Auto (Bld) Ordered By: Issa Bonilla on 01-22-2022 Monocytes/100 WBC (Bld) 9.1 % . [facility] Neutrophils Auto (Bld) [#/Vo l]Ordered By: Issa Bonilla on 01-22-2022 Neutrophils (Bld) [#/Vol] 4.7 10*3/uL 1.8-7.7 [facility] Neutrophils/100 WBC Auto (Bl d)Ordered By: Issa Bonilla on 01-22-2022 Neutrophils/100 WBC (Bld) 71.4 % . [facility] No Panel InformationOrdered By: Issa Bonilla on 01-22-2022 Estimated GFR () 30 mL/Min [facility] Comment on above: GFR estimated refere nce range: According to KDOQI guidelines, <60 ml/min/1.73m2 is sufficient to diagnose a patient with chronic kidney disease. Pharmacy Creatinine Clearance (Chem N/A [facility] Platelet mean volume Auto (B ld) [Entitic vol]Ordered By: Issa Bonilla on 01-22-2022 Platelet mean volume (Bld) [Entitic vol] 7.7 fL 6.3-10.7 [facility] Platelets Auto (Bld) [#/Vol] Ordered By: Issa Bonilla on 01-22-2022 Platelets (Bld) [#/Vol] 304 10*3/uL 150-450 [facility] Protein [Mass/volume] in Ser um or PlasmaOrdered By: Issa Bonilla on 01-22-2022 Protein [Mass/Vol] 6.8 g/dL 6.1-7.9 [facility] RBC Auto (Bld) [#/Vol]Ordere d By: Issa Bonilla on 01-22-2022 RBC (Bld) [#/Vol] 3.24 10*6/uL 3.60-5.00 [facility] Serum or plasma alanine boo otransferase measurement without P-5'-P (enzymatic activiOrdered By: Issa Bonilla on 01-22-2022 ALT No additional P-5'-P [Catalytic activity/Vol] 26 U/L 10-60 [facility] Serum or plasma albumin/glob ulin mass ratioOrdered By: Issa Bonilla on 01-22-2022 Albumin/Globulin [Mass ratio] 0.9 {ratio} [facility] Serum or plasma alkaline jamie sphatase measurement (enzymatic activity/volume)Ordered By: Issa Bonilla on 01-22-2022 ALP [Catalytic activity/Vol] 49 U/L 32-92 [facility] Serum or plasma anion gap de terminationOrdered By: Issa Bonilla on 01-22-2022 Anion gap [Moles/Vol] 16.3 mmol/L 6.0-15.0 [facility] Serum or plasma aspartate am inotransferase measurement (enzymatic activity/volume)Ordered By: Issa Bonilla on 01-22-2022 AST [Catalytic activity/Vol] 18 U/L 10-42 [facility] Serum or plasma calcium jarrett urement (mass/volume)Ordered By: Issa Bonilla on 01-22-2022 Calcium [Mass/Vol] 9.5 mg/dL 8.2-10.2 [facility] Serum or plasma chloride bubba surement (moles/volume)Ordered By: Issa Bonilla on 01-22-2022 Chloride [Moles/Vol] 94 mmol/L 95-114 [facility] Serum or plasma glucose jarrett urement (mass/volume)Ordered By: Issa Bonilla on 01-22-2022 Glucose [Mass/Vol] 275 mg/dL 70-100 [facility] Comment on above: ADA recommended refe rence rangeRandom Glucose Reference Range is dependent on time and content of last meal. Glucose of more than 200 mg/dL in a nonstressed, ambulatory subject supports the diagnosis of Diabetes Mellitus. Serum or plasma potassium me asurement (moles/volume)Ordered By: Issa Bonilla on 01-22-2022 Potassium [Moles/Vol] 4.7 mmol/L 3.5-5.1 [facility] Serum or plasma sodium measu rement (moles/volume)Ordered By: Issa Bonilla on 01-22-2022 Sodium [Moles/Vol] 131 mmol/L 136-146 [facility] Serum or plasma total biliru bin measurement (mass/volume)Ordered By: Issa Bonilla on 01-22-2022 Bilirubin [Mass/Vol] 0.3 mg/dL 0.3-1.2 [facility] Serum or plasma total carbon dioxide measurement (moles/volume)Ordered By: Issa Bonilla on 01-22-2022 CO2 [Moles/Vol] 25.4 mmol/L 22.0-30.0 [facility] Serum or plasma urea nitroge n measurement (mass/volume)Ordered By: Issa Bonilla on 01-22-2022 Urea nitrogen [Mass/Vol] 43 mg/dL 9- [facility] Troponin I High Sensitivityo n 01-22-2022 Troponin I High Sensitivity 44 pg/mL High 0- [facility] Comment on above: Result Comment: PERF ORMED BY: [place] [address] PATHOLOGIST DIRECTOR OF CUSTOMER ACQUISITION ROSEMARIE SOLANO M.D. Performed By: #### C MP, CBC, HS TROP, BNP #### [address] Troponin I.cardiac [Mass/vol ume] in Serum or Plasma by High sensitivity methodOrdered By: Issa Bonilla on 01-22-2022 Troponin I.cardiac High sensitivity method [Mass/Vol] 44 pg/mL 0-15 [facility] Basophil percentageOrdered B y: Dr. Louise on 12-29-2021 Basophil percentage 2.7 mg/dL 2.5-4.9 [facility] Chloride [Moles/Vol] 99 mmol/L 98-[address] [facility] Glucose [Mass/Vol] 192 mg/dL 74-106 [facility] Comment on above: Fasting Glucose resu lt greater than or equal to 126 mg/dL suggests DIABETES MELLITUS per A.D.A. criteria. Potassium [Moles/Vol] 5.3 mmol/L 3.5-5.1 [facility] Sodium [Moles/Vol] 132 mmol/L 136-145 [facility] Blood hemoglobin measurement (mass/volume)Ordered By: Dr. Louise on 12-29-2021 Hemoglobin (Bld) [Mass/Vol] 10.2 g/dL 12.0-15.0 [facility] Hematocrit Auto (Bld) [Volum e fraction]Ordered By: Dr. Louise on 12-29-2021 Hematocrit (Bld) [Volume fraction] 31.1 % 37-47 [facility] Laboratory - Chemistry and C hemistry - challengeOrdered By: Dr. Louise on 12-29-2021 CO2 [Moles/Vol] 27.0 mmol/L 21.0-32.0 [facility] Urea nitrogen/Creatinine [Mass ratio] 20.2 mg/mg 10- [facility] No Panel InformationOrdered By: Dr. Louise on 12-29-2021 Estimated GFR (MDRD) Amer 34 mL/min >60 [facility] Comment on above: GFR Calc Estimated GFR (MDRD) Non-Af Amer 28 mL/min >60 [facility] Comment on above: Non- GFR Calc Serum or plasma albumin jarrett urement (mass/volume)Ordered By: Dr. Louise on 12-29-2021 Albumin [Mass/Vol] 3.1 g/dL 3.2-5.0 [facility] Serum or plasma calcium jarrett urement (mass/volume)Ordered By: Dr. Louise on 12-29-2021 Calcium [Mass/Vol] 9.8 mg/dL 8.5-10.1 [facility] Serum or plasma creatinine m easurement (mass/volume)Ordered By: Dr. Louise on 12-29-2021 Creatinine [Mass/Vol] 1.83 mg/dL 0.55-1.02 [facility] Comment on above: The validity of the calculated GFR & GFRAA in patients over 70 years has not been determined. Clinical correlation is essential. Serum or plasma urea nitroge n measurement (mass/volume)Ordered By: Dr. Louise on 12-29-2021 Urea nitrogen [Mass/Vol] 37 mg/dL 7-18 [facility] Absolute lymphocyte countOrd ered By: Dr. Saenz on 12-27-2021 Lymphocytes Auto (Unsp spec) [#/Vol] 1.13 10*3/uL 0.83-4.51 [facility] Basophil percentageOrdered B y: Dr. Saenz on 12-27-2021 Basophils/100 WBC (Bld) 0.3 % 0-1 [facility] Chloride [Moles/Vol] 92 mmol/L 98-107 [facility] Eosinophils/100 WBC (Bld) 2.9 % 0-5 [facility] Glucose [Mass/Vol] 168 mg/dL 74-106 [facility] Comment on above: Fasting Glucose resu lt greater than or equal to 126 mg/dL suggests DIABETES MELLITUS per A.D.A. criteria. Neutrophils (Bld) [#/Vol] 6.5 10*3/uL 2.0-7.7 [facility] Neutrophils/100 WBC (Bld) 75.1 % 47-70 [facility] Potassium [Moles/Vol] 5.2 mmol/L 3.5-5.1 [facility] Sodium [Moles/Vol] 123 mmol/L 136-145 [facility] WBC (Bld) [#/Vol] 8.6 10*3/uL 4.4-11.0 [facility] Blood erythrocytes count (nu mber/volume)Ordered By: Dr. Saenz on 12-27-2021 RBC (Bld) [#/Vol] 3.01 10*6/uL 4.2-5.4 [facility] Blood hemoglobin measurement (mass/volume)Ordered By: Dr. Saenz on 12-27-2021 Hemoglobin (Bld) [Mass/Vol] 9.5 g/dL 12.0-15.0 [facility] Blood lymphocytes/100 leukoc ytesOrdered By: Dr. Saenz on 12-27-2021 Lymphocytes/100 WBC (Bld) 13.1 % 19-41 [facility] Blood monocytes/100 leukocyt esOrdered By: Dr. Saenz on 12-27-2021 Monocytes/100 WBC (Bld) 7.1 % 0-10 [facility] Blood platelet mean volumeOr dered By: Dr. Saenz on 12-27-2021 Platelet mean volume (Bld) [Entitic vol] 9.1 fL 6.2-12.0 [facility] Determination of erythrocyte mean corpuscular volume (MCV)Ordered By: Dr. Saenz on 12-27-2021 MCV (RBC) [Entitic vol] 95.0 fL 81-99 [facility] Glucose Glucometer (BldC) [M ass/Vol]Ordered By: Dr. Maguire on 12-27-2021 Glucose [Mass/Vol] 134 mg/dL 74-106 [facility] Comment on above: MANAGEMENT OF PATIEN T CARE PER NURSING PROTOCOL Hematocrit Auto (Bld) [Volum e fraction]Ordered By: Dr. Saenz on 12-27-2021 Hematocrit (Bld) [Volume fraction] 28.6 % 37-47 [facility] Laboratory - Chemistry and C hemistry - challengeOrdered By: Dr. Saenz on 12-27-2021 CO2 [Moles/Vol] 24.0 mmol/L 21.0-32.0 [facility] Urea nitrogen/Creatinine [Mass ratio] 21.1 mg/mg 10-20 [facility] Laboratory - CoagulationOrde red By: Dr. Saenz on 12-27-2021 aPTT Coag (Bld) [Time] 28.7 s 24.1-36.2 [facility] Laboratory - Hematology and Cell countsOrdered By: Dr. Saenz on 12-27-2021 Erythrocyte distribution width (RBC) [Entitic vol] 47.7 fL 35.1-43.9 [facility] Erythrocyte distribution width (RBC) [Ratio] 13.9 % 11.6-14.6 [facility] Immature granulocytes/100 WBC (Bld) 1.500 % 0.0-0.9 [facility] Comment on above: IG% - Immature Granu locytes (promyelocytes, myelocytes and metamyelocytes) > 1% indicates that a LEFT SHIFT is Present. MCH (RBC) [Entitic mass] 31.6 pg 27.0-32.0 [facility] Nucleated RBC/100 WBC (Bld) [Ratio] 0 % 0-5 [facility] MCHC Auto (RBC) [Mass/Vol]Or dered By: Dr. Saenz on 12-27-2021 MCHC (RBC) [Mass/Vol] 33.2 g/dL 32-36 [facility] No Panel InformationOrdered By: Dr. Saenz on 12-27-2021 Estimated Creatinine Clearance Calc 20.51 ml/min [facility] Estimated GFR (MDRD) Amer 33 mL/min >60 [facility] Comment on above: GFR Calc Estimated GFR (MDRD) Non-Af Amer 27 mL/min >60 [facility] Comment on above: Non- GFR Calc Platelets bldOrdered By: Dr. Saenz on 12-27-2021 Platelets (Bld) [#/Vol] 229 10*3/uL 150-450 [facility] Serum or plasma calcium jarrett urement (mass/volume)Ordered By: Dr. Saenz on 12-27-2021 Calcium [Mass/Vol] 9.2 mg/dL 8.5-10.1 [facility] Serum or plasma creatinine m easurement (mass/volume)Ordered By: Dr. Saenz on 12-27-2021 Creatinine [Mass/Vol] 1.90 mg/dL 0.55-1.02 [facility] Comment on above: The validity of the calculated GFR & GFRAA in patients over 70 years has not been determined. Clinical correlation is essential. Serum or plasma urea nitroge n measurement (mass/volume)Ordered By: Dr. Saenz on 12-27-2021 Urea nitrogen [Mass/Vol] 40 mg/dL 7-18 [facility] Thin prep Papanicolaou smear with manual screeningOrdered By: Dr. Saenz on 12-27-2021 Thin prep Papanicolaou smear with manual screening 7 5-15 [facility] Whole blood hemoglobin A1c/t otal hemoglobin ratio (mass fraction)Ordered By: Dr. Saenz on 12-27-2021 HbA1c (Bld) [Mass fraction] 7.0 % 3.8-5.6 [facility] Comment on above: Normal < 5.7 % Predi abetic 5.7 - 6.4 % Diabetic >or= 6.5 % Please note range changes. INR in Blood by Coagulation assayOrdered By: Dr. Ferris on 12-26-2021 INR Coag (Bld) [Relative time] 1.1 {INR} [facility] Laboratory - CoagulationOrde red By: Dr. Ferris on 12-26-2021 PT Coag (PPP) [Time] 13.8 s 11.7-14.9 [facility] Absolute lymphocyte countOrd ered By: Dr. Bill on 12-22-2021 Lymphocytes Auto (Unsp spec) [#/Vol] 1.20 10*3/uL 0.83-4.51 [facility] Basophil percentageOrdered B y: Dr. Bill on 12-22-2021 Basophils/100 WBC (Bld) 0.3 % 0-1 [facility] Bilirubin [Mass/Vol] 0.30 mg/dL 0.20-1.00 [facility] Comment on above: For patients on eltr ombopag therapy, use of Dimension [place] TBIL is not recommended. Chloride [Moles/Vol] 103 mmol/L 98-107 [facility] Eosinophils/100 WBC (Bld) 2.6 % 0-5 [facility] Glucose [Mass/Vol] 130 mg/dL 74-106 [facility] Comment on above: Fasting Glucose resu lt greater than or equal to 126 mg/dL suggests DIABETES MELLITUS per A.D.A. criteria. Neutrophils (Bld) [#/Vol] 6.7 10*3/uL 2.0-7.7 [facility] Neutrophils/100 WBC (Bld) 75.5 % 47-70 [facility] Potassium [Moles/Vol] 5.3 mmol/L 3.5-5.1 [facility] Protein [Mass/Vol] 6.3 g/dL 6.4-8.2 [facility] Sodium [Moles/Vol] 133 mmol/L 136-145 [facility] WBC (Bld) [#/Vol] 8.9 10*3/uL 4.4-11.0 [facility] Blood erythrocytes count (nu mber/volume)Ordered By: Dr. Bill on 12-22-2021 RBC (Bld) [#/Vol] 3.14 10*6/uL 4.2-5.4 [facility] Blood hemoglobin measurement (mass/volume)Ordered By: Dr. Bill on 12-22-2021 Hemoglobin (Bld) [Mass/Vol] 9.8 g/dL 12.0-15.0 [facility] Blood lymphocytes/100 leukoc ytesOrdered By: Dr. Bill on 12-22-2021 Lymphocytes/100 WBC (Bld) 13.5 % 19-41 [facility] Blood monocytes/100 leukocyt esOrdered By: Dr. Bill on 12-22-2021 Monocytes/100 WBC (Bld) 7.4 % 0-10 [facility] Blood platelet mean volumeOr dered By: Dr. Bill on 12-22-2021 Platelet mean volume (Bld) [Entitic vol] 9.4 fL 6.2-12.0 [facility] Determination of erythrocyte mean corpuscular volume (MCV)Ordered By: Dr. Bill on 12-22-2021 MCV (RBC) [Entitic vol] 99.0 fL 81-99 [facility] Glucose Glucometer (BldC) [M ass/Vol]Ordered By: Dr. Rockwell on 12-22-2021 Glucose [Mass/Vol] 180 mg/dL 74-106 [facility] Comment on above: MANAGEMENT OF PATIEN T CARE PER NURSING PROTOCOL Hematocrit Auto (Bld) [Volum e fraction]Ordered By: Dr. Bill on 12-22-2021 Hematocrit (Bld) [Volume fraction] 31.1 % 37-47 [facility] Laboratory - Chemistry and C hemistry - challengeOrdered By: Dr. Bill on 12-22-2021 ALP [Catalytic activity/Vol] 48 U/L 45-117 [facility] ALT [Catalytic activity/Vol] 30 U/L 13-56 [facility] CO2 [Moles/Vol] 22.0 mmol/L 21.0-32.0 [facility] Globulin (S) [Mass/Vol] 3.4 g/dL 2.2-4.2 [facility] Urea nitrogen/Creatinine [Mass ratio] 22.3 mg/mg 10-20 [facility] Laboratory - Hematology and Cell countsOrdered By: Dr. Bill on 12-22-2021 Erythrocyte distribution width (RBC) [Entitic vol] 49.9 fL 35.1-43.9 [facility] Erythrocyte distribution width (RBC) [Ratio] 13.8 % 11.6-14.6 [facility] Immature granulocytes/100 WBC (Bld) 0.700 % 0.0-0.9 [facility] Comment on above: IG% - Immature Granu locytes (promyelocytes, myelocytes and metamyelocytes) > 1% indicates that a LEFT SHIFT is Present. MCH (RBC) [Entitic mass] 31.2 pg 27.0-32.0 [facility] Nucleated RBC/100 WBC (Bld) [Ratio] 0 % 0-5 [facility] MCHC Auto (RBC) [Mass/Vol]Or dered By: Dr. Bill on 12-22-2021 MCHC (RBC) [Mass/Vol] 31.5 g/dL 32-36 [facility] No Panel InformationOrdered By: Dr. Bill on 12-22-2021 Estimated Creatinine Clearance Calc 20.19 ml/min [facility] Estimated GFR (MDRD) Amer 32 mL/min >60 [facility] Comment on above: GFR Calc Estimated GFR (MDRD) Non-Af Amer 27 mL/min >60 [facility] Comment on above: Non- GFR Calc Platelets bldOrdered By: Dr. Bill on 12-22-2021 Platelets (Bld) [#/Vol] 221 10*3/uL 150-450 [facility] Serum or plasma albumin jarrett urement (mass/volume)Ordered By: Dr. Bill on 12-22-2021 Albumin [Mass/Vol] 2.9 g/dL 3.2-5.0 [facility] Serum or plasma albumin/glob ulin mass ratioOrdered By: Dr. Bill on 12-22-2021 Albumin/Globulin [Mass ratio] 0.9 {ratio} 0.9-2.4 [facility] Serum or plasma calcium jarrett urement (mass/volume)Ordered By: Dr. Bill on 12-22-2021 Calcium [Mass/Vol] 9.0 mg/dL 8.5-10.1 [facility] Serum or plasma creatinine m easurement (mass/volume)Ordered By: Dr. Bill on 12-22-2021 Creatinine [Mass/Vol] 1.93 mg/dL 0.55-1.02 [facility] Comment on above: The validity of the calculated GFR & GFRAA in patients over 70 years has not been determined. Clinical correlation is essential. Serum or plasma urea nitroge n measurement (mass/volume)Ordered By: Dr. Bill on 12-22-2021 Urea nitrogen [Mass/Vol] 43 mg/dL 7-18 [facility] Thin prep Papanicolaou smear with manual screeningOrdered By: Dr. Bill on 12-22-2021 Thin prep Papanicolaou smear with manual screening 18 U/L 15-37 [facility] Thin prep Papanicolaou smear with manual screening 8 5-15 [facility] Whole blood hemoglobin A1c/t otal hemoglobin ratio (mass fraction)Ordered By: Dr. Bill on 12-22-2021 HbA1c (Bld) [Mass fraction] 6.8 % 3.8-5.6 [facility] Comment on above: Normal < 5.7 % Predi abetic 5.7 - 6.4 % Diabetic >or= 6.5 % Please note range changes. Absolute lymphocyte counton 12-21-2021 Lymphocytes Auto (Unsp spec) [#/Vol] 1.33 10*3/uL 0.83-4.51 [facility] Work Phone: Basophil percentageon 2021 Basophils/100 WBC (Bld) 0.3 % 0-1 [facility] Work Phone: Chloride [Moles/Vol] 106 mmol/L 98-107 [facility] Work Phone: Eosinophils/100 WBC (Bld) 1.9 % 0-5 [facility] Work Phone: Glucose [Mass/Vol] 55 mg/dL 74-106 [facility] Work Phone: Neutrophils (Bld) [#/Vol] 5.7 10*3/uL 2.0-7.7 [facility] Work Phone: Neutrophils/100 WBC (Bld) 73.3 % 47-70 [facility] Work Phone: Potassium [Moles/Vol] 4.8 mmol/L 3.5-5.1 [facility] Work Phone: Sodium [Moles/Vol] 136 mmol/L 136-145 [facility] Work Phone: WBC (Bld) [#/Vol] 7.7 10*3/uL 4.4-11.0 [facility] Work Phone: Blood erythrocytes count (nu mber/volume)on 12-21-2021 RBC (Bld) [#/Vol] 3.30 10*6/uL 4.2-5.4 [facility] Work Phone: Blood hemoglobin measurement (mass/volume)on 12-21-2021 Hemoglobin (Bld) [Mass/Vol] 10.3 g/dL 12.0-15.0 [facility] Work Phone: Blood lymphocytes/100 leukoc yteson 12-21-2021 Lymphocytes/100 WBC (Bld) 17.3 % 19-41 [facility] Work Phone: Blood monocytes/100 leukocyt eson 12-21-2021 Monocytes/100 WBC (Bld) 6.7 % 0-10 [facility] Work Phone: Blood platelet mean volumeon 12-21-2021 Platelet mean volume (Bld) [Entitic vol] 8.9 fL 6.2-12.0 [facility] Work Phone: Determination of erythrocyte mean corpuscular volume (MCV)on 12-21-2021 MCV (RBC) [Entitic vol] 98.2 fL 81-99 [facility] Work Phone: Glucose Glucometer (BldC) [M ass/Vol]on 12-21-2021 Glucose [Mass/Vol] 132 mg/dL 74-106 [facility] Work Phone: Comment on above: MANAGEMENT OF PATIEN T CARE PER NURSING PROTOCOL Hematocrit Auto (Bld) [Volum e fraction]on 12-21-2021 Hematocrit (Bld) [Volume fraction] 32.4 % 37-47 [facility] Work Phone: Laboratory - Chemistry and C hemistry - challengeon 12-21-2021 CO2 [Moles/Vol] 25.0 mmol/L 21.0-32.0 [facility] Work Phone: Urea nitrogen/Creatinine [Mass ratio] 24.3 mg/mg 10-20 [facility] Work Phone: Laboratory - Hematology and Cell countson 12-21-2021 Erythrocyte distribution width (RBC) [Entitic vol] 49.1 fL 35.1-43.9 [facility] Work Phone: Erythrocyte distribution width (RBC) [Ratio] 13.8 % 11.6-14.6 [facility] Work Phone: Immature granulocytes/100 WBC (Bld) 0.500 % 0.0-0.9 [facility] Work Phone: Comment on above: IG% - Immature Granu locytes (promyelocytes, myelocytes and metamyelocytes) > 1% indicates that a LEFT SHIFT is Present. MCH (RBC) [Entitic mass] 31.2 pg 27.0-32.0 [facility] Work Phone: Nucleated RBC/100 WBC (Bld) [Ratio] 0 % 0-5 [facility] Work Phone: MCHC Auto (RBC) [Mass/Vol]on 12-21-2021 MCHC (RBC) [Mass/Vol] 31.8 g/dL 32-36 [facility] Work Phone: No Panel Informationon 12-21 Estimated Creatinine Clearance Calc 21.07 ml/min [facility] Work Phone: Estimated GFR (MDRD) Amer 34 mL/min >60 [facility] Work Phone: Comment on above: GFR Calc Estimated GFR (MDRD) Non-Af Amer 28 mL/min >60 [facility] Work Phone: Comment on above: Non- GFR Calc Platelets bldon 12-21-2021 Platelets (Bld) [#/Vol] 212 10*3/uL 150-450 [facility] Work Phone: Serum or plasma calcium jarrett urement (mass/volume)on 12-21-2021 Calcium [Mass/Vol] 9.7 mg/dL 8.5-10.1 [facility] Work Phone: Serum or plasma creatinine m easurement (mass/volume)on 12-21-2021 Creatinine [Mass/Vol] 1.85 mg/dL 0.55-1.02 [facility] Work Phone: Comment on above: The validity of the calculated GFR & GFRAA in patients over 70 years has not been determined. Clinical correlation is essential. Serum or plasma urea nitroge n measurement (mass/volume)on 12-21-2021 Urea nitrogen [Mass/Vol] 45 mg/dL 7-18 [facility] Work Phone: Thin prep Papanicolaou smear with manual screeningon 12-21-2021 Thin prep Papanicolaou smear with manual screening 5 5-15 [facility] Work Phone: US LEG VEIN DVT UNL VAS LABo n 12-20-2021 [facility] XR Tibia and Fibula - right AP and Lateralon 12-20-2021 IMPRESSION: 1. No radiographic evidence of acute osseous injury. 2. Postsurgical changes in the right ankle as described. 3. Hardware fracture of the superior screw transfixing the calcaneonavicular joint. Dial Polisher: [facility] Transcribe Date/Time: Dec 20 2021 8:22A Dictated by : YAMIL STARR MD This examination was interpreted and the report reviewed and electronically signed by: YAMIL STARR MD on Dec 20 2021 9:04AM [facility] DIVISION OF RADIOLOGY * * *Final [...] under separate cover. DIVISION OF RADIOLOGY Provider, [facility] - 12/20/2021 * * *Final Report* * [...] the superior screw transfixing the calcaneonavicular joint. Dial Polisher: [facility] Transcribe Date/Time: Dec 20 2021 8:22A Dictated by : YAMIL STARR MD This examination was interpreted and the report reviewed and electronically signed by: YAMIL STARR MD on Oct 5 2022 9:04AM EST [facility] Basophil percentageOrdered B y: Dr. Turpin on 12-19-2021 Chloride [Moles/Vol] 105 mmol/L 98-107 [facility] Glucose [Mass/Vol] 92 mg/dL 74-106 [facility] Potassium [Moles/Vol] 4.8 mmol/L 3.5-5.1 [facility] Sodium [Moles/Vol] 136 mmol/L 136-145 [facility] WBC (Bld) [#/Vol] 9.6 10*3/uL 4.4-11.0 [facility] Blood erythrocytes count (nu mber/volume)Ordered By: Dr. Turpin on 12-19-2021 RBC (Bld) [#/Vol] 3.46 10*6/uL 4.2-5.4 [facility] Blood hemoglobin measurement (mass/volume)Ordered By: Dr. Turpin on 12-19-2021 Hemoglobin (Bld) [Mass/Vol] 10.8 g/dL 12.0-15.0 [facility] Blood platelet mean volumeOr dered By: Dr. Turpin on 12-19-2021 Platelet mean volume (Bld) [Entitic vol] 9.5 fL 6.2-12.0 [facility] Determination of erythrocyte mean corpuscular volume (MCV)Ordered By: Dr. Turpin on 12-19-2021 MCV (RBC) [Entitic vol] 97.1 fL 81-99 [facility] Hematocrit Auto (Bld) [Volum e fraction]Ordered By: Dr. Turpin on 12-19-2021 Hematocrit (Bld) [Volume fraction] 33.6 % 37-47 [facility] Laboratory - Chemistry and C hemistry - challengeOrdered By: Dr. Turpin on 12-19-2021 CO2 [Moles/Vol] 23.0 mmol/L 21.0-32.0 [facility] Urea nitrogen/Creatinine [Mass ratio] 26.6 mg/mg 10-20 [facility] Laboratory - Hematology and Cell countsOrdered By: Dr. Turpin on 12-19-2021 Erythrocyte distribution width (RBC) [Entitic vol] 49.4 fL 35.1-43.9 [facility] Erythrocyte distribution width (RBC) [Ratio] 13.9 % 11.6-14.6 [facility] MCH (RBC) [Entitic mass] 31.2 pg 27.0-32.0 [facility] MCHC Auto (RBC) [Mass/Vol]Or dered By: Dr. Turpin on 12-19-2021 MCHC (RBC) [Mass/Vol] 32.1 g/dL 32-36 [facility] No Panel Informationon 12-19 Radiology Study observation (narrative) [facility] No Panel InformationOrdered By: Dr. Turpin on 12-19-2021 D-Dimer Quantitative (PE/DVT) 0.57 FEU/ug/m 0.27-0.49 [facility] Comment on above: D-Dimer ELEVATED (>0 .49): Additional studies and clinicalassessments are indicated to conclude diagnosis of:Deep Vein Thrombosis (DVT) or Pulmonary Embolism (PE) Estimated GFR (MDRD) Amer 30 mL/min >60 [facility] Comment on above: GFR Calc Estimated GFR (MDRD) Non-Af Amer 25 mL/min >60 [facility] Comment on above: Non- GFR Calc Platelets bldOrdered By: Dr. Turpin on 12-19-2021 Platelets (Bld) [#/Vol] 215 10*3/uL 150-450 [facility] Serum or plasma calcium jarrett urement (mass/volume)Ordered By: Dr. Turpin on 12-19-2021 Calcium [Mass/Vol] 10.4 mg/dL 8.5-10.1 [facility] Serum or plasma creatinine m easurement (mass/volume)Ordered By: Dr. Turpin on 12-19-2021 Creatinine [Mass/Vol] 2.07 mg/dL 0.55-1.02 [facility] Comment on above: The validity of the calculated GFR & GFRAA in patients over 70 years has not been determined. Clinical correlation is essential. Serum or plasma urea nitroge n measurement (mass/volume)Ordered By: Dr. Turpin on 12-19-2021 Urea nitrogen [Mass/Vol] 55 mg/dL 7-18 [facility] Thin prep Papanicolaou smear with manual screeningOrdered By: Dr. Turpin on 12-19-2021 Thin prep Papanicolaou smear with manual screening 8 5-15 [facility] XR KNEE GENERAL 4V AP BOTH/P A BOTH/LAT/MERC RIGHTon 12-19-2021 [facility] XR Knee - right 4 Viewson IMPRESSION: Degenerative changes as detailed above with a small suprapatellar joint effusion. Dial Polisher: [facility] Transcribe Date/Time: Dec 19 2021 2:36P Dictated by : ALEXANDRA WILSON MD This examination was interpreted and the report reviewed and electronically signed by: ALEXANDRA WILSON MD on Dec 19 2021 2:39PM [facility] DIVISION OF RADIOLOGY * * *Final [...] relevant examinations available for comparison within the [facility]. RESULT: 4 views of the right knee demonstrate osteopenia and degenerative change with severe [id number] narrowing of the medial tibiofemoral joint compartment. [...] relevant examinations available for comparison within the [facility]. RESULT: 4 views of the right knee demonstrate osteopenia and degenerative change with severe [id number] narrowing of the medial tibiofemoral joint compartment. There is prominent medial marginal spurring and associated varus deformity. Intercondylar and patellar spurring is present with uniform moderate narrowing of the right patellofemoral joint space. Lateral view demonstrates small suprapatellar joint effusion. IMPRESSION IMPRESSION: Degenerative changes as detailed above with a small suprapatellar joint effusion. Dial Polisher: [facility] Transcribe Date/Time: Dec 19 2021 2:36P Dictated by : ALEXANDRA WILSON MD This examination was interpreted and the report reviewed and electronically signed by: ALEXANDRA WILSON MD on Dec 19 2021 2:39PM EST [facility] XR Knee - right 4 ViewsOrder ed By: [facility] Provider on 12-19-2021 [facility] Basophil percentageon 2021 Basophil percentage 3.4 mg/dL 2.5-4.9 [facility] Work Phone: Chloride [Moles/Vol] 105 mmol/L 98-107 [facility] Work Phone: Glucose [Mass/Vol] 125 mg/dL 74-106 [facility] Work Phone: Comment on above: Fasting Glucose resu lt from 100 to 125 mg/dL suggests IMPAIRED HOMEOSTASIS per A.D.A. criteria. Potassium [Moles/Vol] 4.6 mmol/L 3.5-5.1 [facility] Work Phone: Sodium [Moles/Vol] 137 mmol/L 136-145 [facility] Work Phone: Blood hemoglobin measurement (mass/volume)on 12-01-2021 Hemoglobin (Bld) [Mass/Vol] 10.2 g/dL 12.0-15.0 [facility] Work Phone: Hematocrit Auto (Bld) [Volum e fraction]on 12-01-2021 Hematocrit (Bld) [Volume fraction] 31.7 % 37-47 [facility] Work Phone: Laboratory - Chemistry and C hemistry - challengeon 12-01-2021 CO2 [Moles/Vol] 27.0 mmol/L 21.0-32.0 [facility] Work Phone: Urea nitrogen/Creatinine [Mass ratio] 23.2 mg/mg 10-20 [facility] Work Phone: No Panel Informationon 12-01 Estimated GFR (MDRD) Amer 31 mL/min >60 [facility] Work Phone: Comment on above: GFR Calc Estimated GFR (MDRD) Non-Af Amer 25 mL/min >60 [facility] Work Phone: Comment on above: Non- GFR Calc Serum or plasma albumin jarrett urement (mass/volume)on 12-01-2021 Albumin [Mass/Vol] 3.3 g/dL 3.2-5.0 [facility] Work Phone: Serum or plasma calcium jarrett urement (mass/volume)on 12-01-2021 Calcium [Mass/Vol] 9.5 mg/dL 8.5-10.1 [facility] Work Phone: Serum or plasma creatinine m easurement (mass/volume)on 12-01-2021 Creatinine [Mass/Vol] 2.03 mg/dL 0.55-1.02 [facility] Work Phone: Comment on above: The validity of the calculated GFR & GFRAA in patients over 70 years has not been determined. Clinical correlation is essential. Serum or plasma urea nitroge n measurement (mass/volume)on 12-01-2021 Urea nitrogen [Mass/Vol] 47 mg/dL 7-18 [facility] Work Phone: Basophil percentageon 2021 Basophil percentage 3.4 mg/dL 2.5-4.9 [facility] Work Phone: Chloride [Moles/Vol] 106 mmol/L 98-[address] [facility] Work Phone: Glucose [Mass/Vol] 142 mg/dL 74-106 [facility] Work Phone: Comment on above: Fasting Glucose resu lt greater than or equal to 126 mg/dL suggests DIABETES MELLITUS per A.D.A. criteria. Potassium [Moles/Vol] 4.4 mmol/L 3.5-5.1 [facility] Work Phone: Sodium [Moles/Vol] 139 mmol/L 136-145 [facility] Work Phone: Blood hemoglobin measurement (mass/volume)on 11-03-2021 Hemoglobin (Bld) [Mass/Vol] 10.7 g/dL 12.0-15.0 [facility] Work Phone: Hematocrit Auto (Bld) [Volum e fraction]on 11-03-2021 Hematocrit (Bld) [Volume fraction] 33.6 % 37-47 [facility] Work Phone: Iron measurement (mass/mass) on 11-03-2021 Iron (Unsp spec) [Mass/Mass] 71 ug/dL 50-170 [facility] Work Phone: Laboratory - Chemistry and C hemistry - challengeon 11-03-2021 CO2 [Moles/Vol] 27.0 mmol/L 21.0-32.0 [facility] Work Phone: Urea nitrogen/Creatinine [Mass ratio] 19.9 mg/mg 10-20 [facility] Work Phone: No Panel Informationon 11-03 Estimated GFR (MDRD) Amer 31 mL/min >60 [facility] Work Phone: Comment on above: GFR Calc Estimated GFR (MDRD) Non-Af Amer 26 mL/min >60 [facility] Work Phone: Comment on above: Non- GFR Calc Total Iron Binding Capacity 336 ug/dL 250-450 [facility] Work Phone: Serum or plasma albumin jarrett urement (mass/volume)on 11-03-2021 Albumin [Mass/Vol] 3.3 g/dL 3.2-5.0 [facility] Work Phone: Serum or plasma calcium jarrett urement (mass/volume)on 11-03-2021 Calcium [Mass/Vol] 10.4 mg/dL 8.5-10.1 [facility] Work Phone: Serum or plasma creatinine m easurement (mass/volume)on 11-03-2021 Creatinine [Mass/Vol] 2.01 mg/dL 0.55-1.02 [facility] Work Phone: Comment on above: The validity of the calculated GFR & GFRAA in patients over 70 years has not been determined. Clinical correlation is essential. Serum or plasma ferritin bubba surement (mass/volume)on 11-03-2021 Ferritin [Mass/Vol] 54 ng/mL 8- [facility] Work Phone: Serum or plasma iron saturat ion measurement (mass fraction)on 11-03-2021 Iron saturation [Mass fraction] 21.1 % 15.0-55.0 [facility] Work Phone: Serum or plasma urea nitroge n measurement (mass/volume)on 11-03-2021 Urea nitrogen [Mass/Vol] 40 mg/dL 7-18 [facility] Work Phone: [phone] Basophil percentageon 2021 Basophil percentage 3.8 mg/dL 2.5-4.9 [facility] Work Phone: Chloride [Moles/Vol] 108 mmol/L 98-107 [facility] Work Phone: Glucose [Mass/Vol] 86 mg/dL 74-106 [facility] Work Phone: Potassium [Moles/Vol] 4.3 mmol/L 3.5-5.1 [facility] Work Phone: Sodium [Moles/Vol] 138 mmol/L 136-145 [facility] Work Phone: WBC (Bld) [#/Vol] 5.6 10*3/uL 4.4-11.0 [facility] Work Phone: Blood erythrocytes count (nu mber/volume)on 10-06-2021 RBC (Bld) [#/Vol] 3.32 10*6/uL 4.2-5.4 [facility] Work Phone: Blood hemoglobin measurement (mass/volume)on 10-06-2021 Hemoglobin (Bld) [Mass/Vol] 10.4 g/dL 12.0-15.0 [facility] Work Phone: Blood platelet mean volumeon 10-06-2021 Platelet mean volume (Bld) [Entitic vol] 9.3 fL 6.2-12.0 [facility] Work Phone: Determination of erythrocyte mean corpuscular volume (MCV)on 10-06-2021 MCV (RBC) [Entitic vol] 96.4 fL 81-99 [facility] Work Phone: Hematocrit Auto (Bld) [Volum e fraction]on 10-06-2021 Hematocrit (Bld) [Volume fraction] 32.0 % 37-47 [facility] Work Phone: Laboratory - Chemistry and C hemistry - challengeon 10-06-2021 CO2 [Moles/Vol] 24.0 mmol/L 21.0-32.0 [facility] Work Phone: Urea nitrogen/Creatinine [Mass ratio] 19.7 mg/mg 10-20 [facility] Work Phone: Laboratory - Hematology and Cell countson 10-06-2021 Erythrocyte distribution width (RBC) [Entitic vol] 46.5 fL 35.1-43.9 [facility] Work Phone: Erythrocyte distribution width (RBC) [Ratio] 13.1 % 11.6-14.6 [facility] Work Phone: MCH (RBC) [Entitic mass] 31.3 pg 27.0-32.0 [facility] Work Phone: MCHC Auto (RBC) [Mass/Vol]on 10-06-2021 MCHC (RBC) [Mass/Vol] 32.5 g/dL 32-36 [facility] Work [facility]: No Panel Informationon 10-06 Estimated Creatinine Clearance Calc 20.19 ml/min [facility] Work Phone: Estimated GFR (MDRD) Amer 32 mL/min >60 [facility] Work Phone: Comment on above: GFR Calc Estimated GFR (MDRD) Non-Af Amer 27 mL/min >60 [facility] Work Phone: Comment on above: Non- GFR Calc Parathyroid Hormone (Intact) 81.9 pg/mL 18.4-80.1 [facility] Work Phone: Vitamin D 25-Hydroxy 39.7 ng/mL [facility] Work Phone: Comment on above: Vitamin D 25(OH) Sta tus Range Deficiency <20 ng/mL (50nmol/L) Insufficiency 20 - 30 ng/mL (50 - 75 nmol/L) Sufficiency 30 - 100 ng/mL (75 - 250 nmol/L) Toxicity >100 ng/mL (>250 nmol/L) Platelets bldon 10-06-2021 Platelets (Bld) [#/Vol] 186 10*3/uL 150-450 [facility] Work Phone: Serum or plasma albumin jarrett urement (mass/volume)on 10-06-2021 Albumin [Mass/Vol] 3.3 g/dL 3.2-5.0 [facility] Work Phone: Serum or plasma calcium jarrett urement (mass/volume)on 10-06-2021 Calcium [Mass/Vol] 9.5 mg/dL 8.5-10.1 [facility] Work Phone: Serum or plasma creatinine m easurement (mass/volume)on 10-06-2021 Creatinine [Mass/Vol] 1.93 mg/dL 0.55-1.02 [facility] Work Phone: Comment on above: The validity of the calculated GFR & GFRAA in patients over 70 years has not been determined. Clinical correlation is essential. Serum or plasma urea nitroge n measurement (mass/volume)on 10-06-2021 Urea nitrogen [Mass/Vol] 38 mg/dL 7-18 [facility] Work Phone: Urine creatinine measurement (mass/volume)on 10-06-2021 Creatinine (U) [Mass/Vol] 87.90 mg/dL NO RANGE EST. [facility] Work Phone: Urine protein measurement (m ass/volume)on 10-06-2021 Protein (U) [Mass/Vol] 36.3 mg/dL 0.0-11.8 [facility] Work Phone: Urine protein/creatinine mas s ratioon 10-06-2021 Protein/Creatinine (U) [Mass ratio] 413 mg/g CRE 0-200 [facility] Work Phone: Basophil percentageon 2021 Basophil percentage 3.6 mg/dL 2.5-4.9 [facility] Work Phone: Chloride [Moles/Vol] 104 mmol/L 98-107 [facility] Work Phone: Glucose [Mass/Vol] 173 mg/dL 74-106 [facility] Work Phone: Comment on above: Fasting Glucose resu lt greater than or equal to 126 mg/dL suggests DIABETES MELLITUS per A.D.A. criteria. Potassium [Moles/Vol] 4.5 mmol/L 3.5-5.1 [facility] Work Phone: Sodium [Moles/Vol] 135 mmol/L 136-145 [facility] Work Phone: Blood hemoglobin measurement (mass/volume)on 09-08-2021 Hemoglobin (Bld) [Mass/Vol] 11.6 g/dL 12.0-15.0 [facility] Work Phone: Hematocrit Auto (Bld) [Volum e fraction]on 09-08-2021 Hematocrit (Bld) [Volume fraction] 35.6 % 37-47 [facility] Work Phone: Laboratory - Chemistry and C hemistry - challengeon 09-08-2021 CO2 [Moles/Vol] 22.0 mmol/L 21.0-32.0 [facility] Work Phone: Urea nitrogen/Creatinine [Mass ratio] 27.1 mg/mg 10-20 [facility] Work Phone: No Panel Informationon 09-08 Estimated GFR (MDRD) Amer 33 mL/min >60 [facility] Work Phone: Comment on above: GFR Calc Estimated GFR (MDRD) Non-Af Amer 27 mL/min >60 [facility] Work Phone: Comment on above: Non- GFR Calc Serum or plasma albumin jarrett urement (mass/volume)on 09-08-2021 Albumin [Mass/Vol] 3.7 g/dL 3.2-5.0 [facility] Work Phone: Serum or plasma calcium jarrett urement (mass/volume)on 09-08-2021 Calcium [Mass/Vol] 9.8 mg/dL 8.5-10.1 [facility] Work Phone: Serum or plasma creatinine m easurement (mass/volume)on 09-08-2021 Creatinine [Mass/Vol] 1.92 mg/dL 0.55-1.02 [facility] Work Phone: Comment on above: The validity of the calculated GFR & GFRAA in patients over 70 years has not been determined. Clinical correlation is essential. Serum or plasma urea nitroge n measurement (mass/volume)on 09-08-2021 Urea nitrogen [Mass/Vol] 52 mg/dL 7-18 [facility] Work Phone: Basophil percentageon 2021 Basophil percentage 3.2 mg/dL 2.5-4.9 [facility] Work Phone: Chloride [Moles/Vol] 105 mmol/L 98-[address] [facility] [facility] Work Phone: Glucose [Mass/Vol] 105 mg/dL 74-106 [facility] Work Phone: Comment on above: Fasting Glucose resu lt from 100 to 125 mg/dL suggests IMPAIRED HOMEOSTASIS per A.D.A. criteria. Potassium [Moles/Vol] 4.4 mmol/L 3.5-5.1 [facility] Work Phone: Sodium [Moles/Vol] 137 mmol/L 136-145 [facility] Work Phone: Blood hemoglobin measurement (mass/volume)on 08-09-2021 Hemoglobin (Bld) [Mass/Vol] 10.3 g/dL 12.0-15.0 [facility] Work Phone: HEMOGLOBIN A1C (POC)on 08-09 HbA1c (Bld) [Mass fraction] 7.6 % Abnormal 4.2 - 5.6 % [facility] Hematocrit Auto (Bld) [Volum e fraction]on 08-09-2021 Hematocrit (Bld) [Volume fraction] 32.3 % 37-47 [facility] Work Phone: Iron measurement (mass/mass) on 08-09-2021 Iron (Unsp spec) [Mass/Mass] 75 ug/dL 50-170 [facility] Work Phone: Laboratory - Chemistry and C hemistry - challengeon 08-09-2021 CO2 [Moles/Vol] 25.0 mmol/L 21.0-32.0 [facility] Work Phone: Urea nitrogen/Creatinine [Mass ratio] 17.4 mg/mg 10-20 [facility] Work Phone: No Panel Informationon 08-09 Estimated Creatinine Clearance Calc 19.99 ml/min [facility] Work Phone: Estimated GFR (MDRD) Amer 32 mL/min >60 [facility] Work Phone: Comment on above: GFR Calc Estimated GFR (MDRD) Non-Af Amer 26 mL/min >60 [facility] Work Phone: Comment on above: Non- GFR Calc Total Iron Binding Capacity 316 ug/dL 250-450 [facility] Work Phone: Serum or plasma albumin jarrett urement (mass/volume)on 08-09-2021 Albumin [Mass/Vol] 3.2 g/dL 3.2-5.0 [facility] Work Phone: Serum or plasma calcium jarrett urement (mass/volume)on 08-09-2021 Calcium [Mass/Vol] 9.5 mg/dL 8.5-10.1 [facility] Work Phone: Serum or plasma creatinine m easurement (mass/volume)on 08-09-2021 Creatinine [Mass/Vol] 1.95 mg/dL 0.55-1.02 [facility] Work Phone: Comment on above: The validity of the calculated GFR & GFRAA in patients over 70 years has not been determined. Clinical correlation is essential. Serum or plasma ferritin bubba surement (mass/volume)on 08-09-2021 Ferritin [Mass/Vol] 52 ng/mL 8-252 [facility] Work Phone: Serum or plasma iron saturat ion measurement (mass fraction)on 08-09-2021 Iron saturation [Mass fraction] 23.7 % 15.0-55.0 [facility] Work Phone: Serum or plasma urea nitroge n measurement (mass/volume)on 08-09-2021 Urea nitrogen [Mass/Vol] 34 mg/dL 7-18 [facility] Work Phone: Basophil percentageon 2021 Basophil percentage 3.5 mg/dL 2.5-4.9 [facility] Work [facility]: Chloride [Moles/Vol] 105 mmol/L 98-107 [facility] Work Phone: Glucose [Mass/Vol] 136 mg/dL 74-106 [facility] Work Phone: Comment on above: Fasting Glucose resu lt greater than or equal to 126 mg/dL suggests DIABETES MELLITUS per A.D.A. criteria. Potassium [Moles/Vol] 4.4 mmol/L 3.5-5.1 [facility] Work Phone: Sodium [Moles/Vol] 136 mmol/L 136-145 [facility] Work Phone: Blood hemoglobin measurement (mass/volume)on 07-14-2021 Hemoglobin (Bld) [Mass/Vol] 10.8 g/dL 12.0-15.0 [facility] Work Phone: Hematocrit Auto (Bld) [Volum e fraction]on 07-14-2021 Hematocrit (Bld) [Volume fraction] 31.8 % 37-47 [facility] Work Phone: Laboratory - Chemistry and C hemistry - challengeon 07-14-2021 CO2 [Moles/Vol] 24.0 mmol/L 21.0-32.0 [facility] Work Phone: Urea nitrogen/Creatinine [Mass ratio] 19.8 mg/mg 10-20 [facility] Work Phone: No Panel Informationon 07-14 Estimated GFR (MDRD) Amer 33 mL/min >60 [facility] Work Phone: Comment on above: GFR Calc Estimated GFR (MDRD) Non-Af Amer 27 mL/min >60 [facility] Work Phone: Comment on above: Non- GFR Calc Serum or plasma albumin jarrett urement (mass/volume)on 07-14-2021 Albumin [Mass/Vol] 3.4 g/dL 3.2-5.0 [facility] Work Phone: Serum or plasma calcium jarrett urement (mass/volume)on 07-14-2021 Calcium [Mass/Vol] 9.9 mg/dL 8.5-10.1 [facility] Work Phone: Serum or plasma creatinine m easurement (mass/volume)on 07-14-2021 Creatinine [Mass/Vol] 1.92 mg/dL 0.55-1.02 [facility] Work Phone: Comment on above: The validity of the calculated GFR & GFRAA in patients over 70 years has not been determined. Clinical correlation is essential. Serum or plasma urea nitroge n measurement (mass/volume)on 07-14-2021 Urea nitrogen [Mass/Vol] 38 mg/dL 7-18 [facility] Work Phone: Basophil percentageon 2021 Basophil percentage 2.9 mg/dL 2.5-4.9 [facility] Work Phone: Chloride [Moles/Vol] 106 mmol/L 98-107 [facility] Work Phone: Glucose [Mass/Vol] 120 mg/dL 74-106 [facility] Work Phone: Comment on above: Fasting Glucose resu lt from 100 to 125 mg/dL suggests IMPAIRED HOMEOSTASIS per A.D.A. criteria. Potassium [Moles/Vol] 4.5 mmol/L 3.5-5.1 [facility] Work Phone: Sodium [Moles/Vol] 137 mmol/L 136-145 [facility] Work Phone: Blood hemoglobin measurement (mass/volume)on 06-14-2021 Hemoglobin (Bld) [Mass/Vol] 11.0 g/dL 12.0-15.0 [facility] Work Phone: Hematocrit Auto (Bld) [Volum e fraction]on 06-14-2021 Hematocrit (Bld) [Volume fraction] 33.8 % 37-47 [facility] Work Phone: Laboratory - Chemistry and C hemistry - challengeon 06-14-2021 CO2 [Moles/Vol] 22.0 mmol/L 21.0-32.0 [facility] Work Phone: Urea nitrogen/Creatinine [Mass ratio] 19.9 mg/mg 10-20 [facility] Work Phone: No Panel Informationon 06-14 Estimated GFR (MDRD) Amer 32 mL/min >60 [facility] Work Phone: Comment on above: GFR Calc Estimated GFR (MDRD) Non-Af Amer 26 mL/min >60 [facility] Work Phone: Comment on above: Non- GFR Calc Serum or plasma albumin jarrett urement (mass/volume)on 06-14-2021 Albumin [Mass/Vol] 3.3 g/dL 3.2-5.0 [facility] Work Phone: Serum or plasma calcium jarrett urement (mass/volume)on 06-14-2021 Calcium [Mass/Vol] 8.7 mg/dL 8.5-10.1 [facility] Work Phone: Serum or plasma creatinine m easurement (mass/volume)on 06-14-2021 Creatinine [Mass/Vol] 1.96 mg/dL 0.55-1.02 [facility] Work Phone: Comment on above: The validity of the calculated GFR & GFRAA in patients over 70 years has not been determined. Clinical correlation is essential. Serum or plasma urea nitroge n measurement (mass/volume)on 06-14-2021 Urea nitrogen [Mass/Vol] 39 mg/dL 7-18 [facility] Work Phone: Basophil percentageon 2021 Basophil percentage 3.1 mg/dL 2.5-4.9 [facility] Work Phone: Chloride [Moles/Vol] 106 mmol/L 98-[address] [facility] Work Phone: Glucose [Mass/Vol] 113 mg/dL 74-106 [facility] Work Phone: Comment on above: Fasting Glucose resu lt from 100 to 125 mg/dL suggests IMPAIRED HOMEOSTASIS per A.D.A. criteria. Potassium [Moles/Vol] 4.5 mmol/L 3.5-5.1 [facility] Work Phone: Sodium [Moles/Vol] 138 mmol/L 136-145 [facility] Work Phone: Blood hemoglobin measurement (mass/volume)on 05-17-2021 Hemoglobin (Bld) [Mass/Vol] 10.6 g/dL 12.0-15.0 [facility] Work Phone: Hematocrit Auto (Bld) [Volum e fraction]on 05-17-2021 Hematocrit (Bld) [Volume fraction] 32.2 % 37-47 [facility] Work Phone: Iron measurement (mass/mass) on 05-17-2021 Iron (Unsp spec) [Mass/Mass] 76 ug/dL 50-170 [facility] Work Phone: Laboratory - Chemistry and C hemistry - challengeon 05-17-2021 CO2 [Moles/Vol] 25.0 mmol/L 21.0-32.0 [facility] Work Phone: Urea nitrogen/Creatinine [Mass ratio] 16.2 mg/mg 10-20 [facility] Work Phone: No Panel Informationon 05-17 Estimated GFR (MDRD) Amer 33 mL/min >60 [facility] Work Phone: Comment on above: GFR Calc Estimated GFR (MDRD) Non-Af Amer 27 mL/min >60 [facility] Work Phone: Comment on above: Non- GFR Calc Total Iron Binding Capacity 306 ug/dL 250-450 [facility] Work Phone: Serum or plasma albumin jarrett urement (mass/volume)on 05-17-2021 Albumin [Mass/Vol] 3.4 g/dL 3.2-5.0 [facility] Work Phone: Serum or plasma calcium jarrett urement (mass/volume)on 05-17-2021 Calcium [Mass/Vol] 9.7 mg/dL 8.5-10.1 [facility] Work Phone: Serum or plasma creatinine m easurement (mass/volume)on 05-17-2021 Creatinine [Mass/Vol] 1.91 mg/dL 0.55-1.02 [facility] Work Phone: Comment on above: The validity of the calculated GFR & GFRAA in patients over 70 years has not been determined. Clinical correlation is essential. Serum or plasma ferritin bubba surement (mass/volume)on 05-17-2021 Ferritin [Mass/Vol] 56 ng/mL 8-252 [facility] Work Phone: Serum or plasma iron saturat ion measurement (mass fraction)on 05-17-2021 Iron saturation [Mass fraction] 24.8 % 15.0-55.0 [facility] Work Phone: Serum or plasma urea nitroge n measurement (mass/volume)on 05-17-2021 Urea nitrogen [Mass/Vol] 31 mg/dL 7-18 [facility] Work Phone: Basophil percentageon 2021 Basophil percentage 3.4 mg/dL 2.5-4.9 [facility] Work Phone: Chloride [Moles/Vol] 106 mmol/L 98-107 [facility] Work Phone: Glucose [Mass/Vol] 185 mg/dL 74-106 [facility] Work Phone: Comment on above: Fasting Glucose resu lt greater than or equal to 126 mg/dL suggests DIABETES MELLITUS per A.D.A. criteria. Potassium [Moles/Vol] 4.2 mmol/L 3.5-5.1 [facility] Work Phone: Sodium [Moles/Vol] 138 mmol/L 136-145 [facility] Work Phone: Blood hemoglobin measurement (mass/volume)on 04-19-2021 Hemoglobin (Bld) [Mass/Vol] 11.1 g/dL 12.0-15.0 [facility] Work Phone: Hematocrit Auto (Bld) [Volum e fraction]on 04-19-2021 Hematocrit (Bld) [Volume fraction] 33.2 % 37-47 [facility] Work Phone: Laboratory - Chemistry and C hemistry - challengeon 04-19-2021 CO2 [Moles/Vol] 24.0 mmol/L 21.0-32.0 [facility] Work Phone: Urea nitrogen/Creatinine [Mass ratio] 15.7 mg/mg 10-20 [facility] Work Phone: No Panel Informationon 04-19 Estimated GFR (MDRD) Amer 27 mL/min >60 [facility] Work Phone: Comment on above: GFR Calc Estimated GFR (MDRD) Non-Af Amer 22 mL/min >60 [facility] Work Phone: Comment on above: Non- GFR Calc Serum or plasma albumin jarrett urement (mass/volume)on 04-19-2021 Albumin [Mass/Vol] 3.3 g/dL 3.2-5.0 [facility] Work Phone: Serum or plasma calcium jarrett urement (mass/volume)on 04-19-2021 Calcium [Mass/Vol] 9.6 mg/dL 8.5-10.1 [facility] Work Phone: Serum or plasma creatinine m easurement (mass/volume)on 04-19-2021 Creatinine [Mass/Vol] 2.29 mg/dL 0.55-1.02 [facility] Work Phone: Comment on above: The validity of the calculated GFR & GFRAA in patients over 70 years has not been determined. Clinical correlation is essential. Serum or plasma urea nitroge n measurement (mass/volume)on 04-19-2021 Urea nitrogen [Mass/Vol] 36 mg/dL 7-18 [facility] Work Phone: Absolute lymphocyte counton 03-22-2021 Lymphocytes Auto (Unsp spec) [#/Vol] 1.54 10*3/uL 0.83-4.51 [facility] Work Phone: Basophil percentageon 2021 Basophil percentage 2.9 mg/dL 2.5-4.9 [facility] Work Phone: Basophils/100 WBC (Bld) 0.6 % 0-1 [facility] Work Phone: [phone] Chloride [Moles/Vol] 108 mmol/L 98-107 [facility] Work Phone: Eosinophils/100 WBC (Bld) 2.8 % 0-5 [facility] Work Phone: Glucose [Mass/Vol] 171 mg/dL 74-106 [facility] Work Phone: Comment on above: Fasting Glucose resu lt greater than or equal to 126 mg/dL suggests DIABETES MELLITUS per A.D.A. criteria.Please note revised GLUCOSE reference range effective 2017. Neutrophils (Bld) [#/Vol] 4.1 10*3/uL 2.0-7.7 [facility] Work Phone: Neutrophils/100 WBC (Bld) 63.5 % 47-70 [facility] Work Phone: [phone] Potassium [Moles/Vol] 4.4 mmol/L 3.5-5.1 [facility] Work Phone: Sodium [Moles/Vol] 140 mmol/L 136-145 [facility] Work Phone: WBC (Bld) [#/Vol] 6.5 10*3/uL 4.4-11.0 [facility] Work Phone: Blood erythrocytes count (nu mber/volume)on 03-22-2021 RBC (Bld) [#/Vol] 3.52 10*6/uL 4.2-5.4 [facility] Work Phone: Blood hemoglobin measurement (mass/volume)on 03-22-2021 Hemoglobin (Bld) [Mass/Vol] 10.9 g/dL 12.0-15.0 [facility] Work Phone: Blood lymphocytes/100 leukoc yteson 03-22-2021 Lymphocytes/100 WBC (Bld) 23.7 % 19-41 [facility] Work Phone: Blood monocytes/100 leukocyt eson 03-22-2021 Monocytes/100 WBC (Bld) 8.8 % 0-10 [facility] Work Phone: Blood platelet mean volumeon 03-22-2021 Platelet mean volume (Bld) [Entitic vol] 9.3 fL 6.2-12.0 [facility] Work Phone: Determination of erythrocyte mean corpuscular volume (MCV)on 03-22-2021 MCV (RBC) [Entitic vol] 96.3 fL 81-99 [facility] Work Phone: Hematocrit Auto (Bld) [Volum e fraction]on 03-22-2021 Hematocrit (Bld) [Volume fraction] 33.9 % 37-47 [facility] Work Phone: Laboratory - Chemistry and C hemistry - challengeon 03-22-2021 CO2 [Moles/Vol] 24.0 mmol/L 21.0-32.0 [facility] Work Phone: Urea nitrogen/Creatinine [Mass ratio] 18.3 mg/mg 10-20 [facility] Work Phone: Laboratory - Hematology and Cell countson 03-22-2021 Erythrocyte distribution width (RBC) [Entitic vol] 47.8 fL 35.1-43.9 [facility] Work Phone: Erythrocyte distribution width (RBC) [Ratio] 13.4 % 11.6-14.6 [facility] Work Phone: Immature granulocytes/100 WBC (Bld) 0.600 % 0.0-0.9 [facility] Work Phone: Comment on above: IG% - Immature Granu locytes (promyelocytes, myelocytes and metamyelocytes) > 1% indicates that a LEFT SHIFT is Present. MCH (RBC) [Entitic mass] 31.0 pg 27.0-32.0 [facility] Work Phone: Nucleated RBC/100 WBC (Bld) [Ratio] 0 % 0-5 [facility] Work Phone: MCHC Auto (RBC) [Mass/Vol]on 03-22-2021 MCHC (RBC) [Mass/Vol] 32.2 g/dL 32-36 [facility] Work Phone: No Panel Informationon 03-22 Estimated GFR (MDRD) Amer 31 mL/min >60 [facility] Work Phone: Comment on above: GFR Calc Estimated GFR (MDRD) Non-Af Amer 25 mL/min >60 [facility] Work Phone: Comment on above: Non- GFR Calc Platelets bldon 03-22-2021 Platelets (Bld) [#/Vol] 237 10*3/uL 150-450 [facility] Work Phone: Serum or plasma albumin jarrett urement (mass/volume)on 03-22-2021 Albumin [Mass/Vol] 3.3 g/dL 3.2-5.0 [facility] Work Phone: Serum or plasma calcium jarrett urement (mass/volume)on 03-22-2021 Calcium [Mass/Vol] 10.0 mg/dL 8.5-10.1 [facility] Work Phone: Serum or plasma creatinine m easurement (mass/volume)on 03-22-2021 Creatinine [Mass/Vol] 2.02 mg/dL 0.55-1.02 [facility] Work Phone: Comment on above: The validity of the calculated GFR & GFRAA in patients over 70 years has not been determined. Clinical correlation is essential. Serum or plasma urea nitroge n measurement (mass/volume)on 03-22-2021 Urea nitrogen [Mass/Vol] 37 mg/dL 7-18 [facility] Work Phone: Whole blood hemoglobin A1c/t otal hemoglobin ratio (mass fraction)on 03-22-2021 HbA1c (Bld) [Mass fraction] 8.3 % 3.8-5.6 [facility] Work Phone: Comment on above: Normal < 5.7 % Predi abetic 5.7 - 6.4 % Diabetic >or= 6.5 % Please note range changes. Basophil percentageon 2020 Basophil percentage 3.2 mg/dL 2.5-4.9 [facility] Work Phone: Chloride [Moles/Vol] 102 mmol/L 98-107 [facility] Work Phone: Glucose [Mass/Vol] 219 mg/dL 74-106 [facility] Work Phone: Comment on above: Glucose result great er than or equal to 200 mg/dLsuggests DIABETES MELLITUS per A.D.A. criteria.Please note revised GLUCOSE reference range effective 2017. Potassium [Moles/Vol] 4.5 mmol/L 3.5-5.1 [facility] Work Phone: Sodium [Moles/Vol] 134 mmol/L 136-145 [facility] Work Phone: Blood hemoglobin measurement (mass/volume)on 02-22-2021 Hemoglobin (Bld) [Mass/Vol] 11.5 g/dL 12.0-15.0 [facility] Work Phone: Hematocrit Auto (Bld) [Volum e fraction]on 02-22-2021 Hematocrit (Bld) [Volume fraction] 34.3 % 37-47 [facility] Work Phone: Iron measurement (mass/mass) on 02-22-2021 Iron (Unsp spec) [Mass/Mass] 104 ug/dL 50-170 [facility] Work Phone: Laboratory - Chemistry and C hemistry - challengeon 02-22-2021 CO2 [Moles/Vol] 22.0 mmol/L 21.0-32.0 [facility] Work Phone: Urea nitrogen/Creatinine [Mass ratio] 24.6 mg/mg 10-20 [facility] Work Phone: No Panel Informationon 02-22 Estimated GFR (MDRD) Amer 30 mL/min >60 [facility] Work Phone: Comment on above: GFR Calc Estimated GFR (MDRD) Non-Af Amer 25 mL/min >60 [facility] Work Phone: Comment on above: Non- GFR Calc Total Iron Binding Capacity 342 ug/dL 250-450 [facility] Work Phone: Serum or plasma albumin jarrett urement (mass/volume)on 02-22-2021 Albumin [Mass/Vol] 3.3 g/dL 3.2-5.0 [facility] Work Phone: Serum or plasma calcium jarrett urement (mass/volume)on 02-22-2021 Calcium [Mass/Vol] 9.7 mg/dL 8.5-10.1 [facility] Work Phone: Serum or plasma creatinine m easurement (mass/volume)on 02-22-2021 Creatinine [Mass/Vol] 2.07 mg/dL 0.55-1.02 [facility] Work Phone: Comment on above: The validity of the calculated GFR & GFRAA in patients over 70 years has not been determined. Clinical correlation is essential. Serum or plasma ferritin bubba surement (mass/volume)on 02-22-2021 Ferritin [Mass/Vol] 64 ng/mL 8-252 [facility] Work Phone: Serum or plasma urea nitroge n measurement (mass/volume)on 02-22-2021 Urea nitrogen [Mass/Vol] 51 mg/dL 7-18 [facility] Work Phone: Urine creatinine measurement (mass/volume)on 02-22-2021 Creatinine (U) [Mass/Vol] 62.80 mg/dL NO RANGE EST. [facility] Work Phone: Urine protein measurement (m ass/volume)on 02-22-2021 Protein (U) [Mass/Vol] 39.9 mg/dL 0.0-11.8 [facility] Work Phone: Urine protein/creatinine mas s ratioon 02-22-2021 Protein/Creatinine (U) [Mass ratio] 635 mg/g CRE 0-200 [facility] Work Phone: URINALYSISon 04-15-2018 Bacteria, Urine Rare NS;RARE /HPF [facility] Bilirubin, Urine Negative NEG;NEGATIVE [facility] Blood, Urine Negative NEG;NEGATIVE [facility] Calcium Oxalate, Crystal Few Abnormal None Seen /HPF [facility] Cast, Hyaline 1 [facility] Character Nom (U) Cloudy [facility] Color Nom (U) Yellow [facility] Comment on above: The specimen was col lected in a tube with the additives ethyl paraben, sodium propionate and chlorhexidine preservative. Detection of urobilinogen and bilirubin maybe decreased due to their instability at RT or when exposed to light. Glucose Ql (U) Negative NEG;NEGATIVE mg/dL [facility] Interpretation and review of laboratory results Abnormal [facility] Ketones Ql (U) Negative NEG;NEGATIVE mg/dL [facility] Leukocyte esterase Test strip Ql (U) Moderate Abnormal Negative [facility] Nitrite, Urine Negative NEG;NEGATIVE [facility] pH (U) 5.0 [pH] [facility] Protein mass conc (U) 30 mg/dL High <[facility] RBC #/vol (U) 2 /uL [facility] Specific gravity Relative Density (U) 1.019 [facility] Squamous Epithelial 1 [facility] ealt Uric Acid, Crystal Rare Abnormal None Seen /HPF [facility] Urobilinogen, Urine < 2.0 <2 mg/dL [facility] Comment on above: Urobilinogen, Urine Reference Range: <2.0 mg/dL WBCs, Urine 21 High [facility] Urinalysis, Routineon 2018 Bacteria LM.HPF #/area (Urine sed) Rare Normal NS;RARE [facility] Comment on above: Performed By: #### U A #### Unless otherwise noted, all testing performed by [place] [id number] CLIA: [id number] [employer]: Donald Brewster M.D. Bilirubin,Urine Negative Normal NEG;NEGATIVE [facility] Comment on above: Performed By: #### U A #### Unless otherwise noted, all testing performed by [place] [id number] CLIA: [id number] [employer]: Donald Brewster M.D. Blood,Urine Negative Normal NEG;NEGATIVE [facility] Comment on above: Performed By: #### U A #### Unless otherwise noted, all testing performed by [place] [id number] CLIA: [id number] [employer]: Donald Berwster M.D. Calcium Oxalate Karen Few Abnormal None Seen [facility] Comment on above: Performed By: #### U A #### Unless otherwise noted, all testing performed by [place] [address] CLIA: [id number] [employer]: Donald Brewster M.D. Cast, Hyaline 1 /LPF Normal 0-[address] [facility] Comment on above: Performed By: #### U A #### Unless otherwise noted, all testing performed by [address] [place], [place] [address] CLIA: [id number] [employer]: Donald Brewster M.D. Character Nom (U) Cloudy Normal [facility] Comment on above: Performed By: #### U A #### Unless otherwise noted, all testing performed by [place] [address] CLIA: [id number] [employer]: Donald Brewster M.D. Color Nom (U) Yellow Normal [facility] Comment on above: Result Comment: The specimen was collected in a tube with the additives ethyl paraben, sodium propionate and chlorhexidine preservative. Detection of urobilinogen and bilirubin maybe decreased due to their instability at RT or when exposed to light. Performed By: #### U A #### Unless otherwise noted, all testing performed by [place] [phone] CLIA: [id number] [employer]: Donald Brewster M.D. Glucose Ql (U) Negative Normal NEG;NEGATIVE [facility] Comment on above: Performed By: #### U A #### Unless otherwise noted, all testing performed by [place] [phone] CLIA: [id number] [employer]: Donald Brewster M.D. Ketone,Urine Negative Normal NEG;NEGATIVE [facility] Comment on above: Performed By: #### U A #### Unless otherwise noted, all testing performed by [place] [phone] CLIA: [id number] [employer]: Donald Brewster M.D. Leuk.Esterase,Urine Moderate Abnormal Negative [facility] Comment on above: Performed By: #### U A #### Unless otherwise noted, all testing performed by [place] [phone] CLIA: [id number] [employer]: Donald Brewster M.D. Nitrite,Urine Negative Normal NEG;NEGATIVE [facility] Comment on above: Performed By: #### U A #### Unless otherwise noted, all testing performed by [place] [phone] CLIA: [id number] [employer]: Donald Brewster M.D. pH (U) 5.0 [pH] Normal 4.5-8.[address] [facility] Comment on above: Performed By: #### U A #### Unless otherwise noted, all testing performed by [place] [phone] CLIA: [id number] [employer]: Donald Brewster M.D. Protein mass conc (U) 30 mg/dL High < 30 [facility] Comment on above: Performed By: #### U A #### Unless otherwise noted, all testing performed by [place] [phone] CLIA: [id number] [employer]: Donald Brewster M.D. RBC,Urine 2 /HPF Normal 0-[address] [facility] Comment on above: Performed By: #### U A #### Unless otherwise noted, all testing performed by [place] [phone] CLIA: [id number] [employer]: Donald Brewster M.D. Specific [place],Urine 1.019 Normal 1.003-1.[address] [facility] Comment on above: Performed By: #### U A #### Unless otherwise noted, all testing performed by [place] [address] CLIA: [id number] [employer]: Donald Brewster M.D. Squamous Epithelial 1 /HPF Normal 0-40 [facility] Comment on above: Performed By: #### U A #### Unless otherwise noted, all testing performed by [place] [address] CLIA: [id number] [employer]: Donald Brewster M.D. Uric Acid, Crystal Rare Abnormal None Seen [facility] Comment on above: Performed By: #### U A #### Unless otherwise noted, all testing performed by [place] [address] CLIA: [id number] [employer]: Donald Brewster M.D. Urobilinogen,Urine < 2.0 Normal <2 [facility] Comment on above: Result Comment: Urob ilinogen, Urine Reference Range: <2.0 mg/dL Performed By: #### U A #### Unless otherwise noted, all testing performed by [place] [address] CLIA: [id number] [employer]ice: Donald Brewster M.D. WBC,Urine 21 /HPF High 0-[address] [facility] Comment on above: Performed By: #### U A #### Unless otherwise noted, all testing performed by [place] [address] CLIA: [id number] [employer] Apprentice: Donald Brewster M.D. Basic Metabolic Panelon 03-18 Calcium mass conc 8.7 mg/dL Normal 8.4-10.2 [facility] Comment on above: Performed By: #### C HEM8, CBCDIF #### Unless otherwise noted, all testing performed by [place] [address] CLIA: [id number] [employer] Mechan[employer] Apprentice: Donald Brewster M.D. Chloride molar conc 107 mmol/L Normal 98-108 [facility] Comment on above: Performed By: #### C HEM8, CBCDIF #### Unless otherwise noted, all testing performed by [place] [address] CLIA: [id number] [employer] Mechanic Apprentice: Donald Brewster M.D. CO2 molar conc 25 mmol/L Normal 21-[address] [facility] Comment on above: Performed By: #### C HEM8, CBCDIF #### Unless otherwise noted, all testing performed by [place] [address] CLIA: [id number] [employer] Mechan[employer] Apprentice: Donald Brewster M.D. Creatinine mass conc 1.72 mg/dL High 0.60-1.20 [facility] Comment on above: Performed By: #### C HEM8, CBCDIF #### Unless otherwise noted, all testing performed by [place] [address] CLIA: [id number] [employer] Apprentice: Donald Brewster M.D. GFR/1.73 sq M predicted among blacks MDRD vol rate/area (S/P/Bld) 35 mL/min/{1.73_m2} Low >60 [facility] Comment on above: Result Comment: Afri can [place] GFR Calc Performed By: #### C HEM8, CBCDIF #### Unless otherwise noted, all testing performed by [place] [address] CLIA: [id number] [employer] Mechanic Apprentice: Donald Brewster M.D. GFR/1.73 sq M predicted among non-blacks MDRD vol rate/area (S/P/Bld) 29 mL/min/{1.73_m2} Low >60 [facility] Comment on above: Result Comment: Non- GFR [...] Unless otherwise noted, all testing performed by [place] [address] CLIA: [id number] [employer] Apprentice: Donald Brewster M.D. Glucose mass conc 113 mg/dL High 70-99 [facility] Comment on above: Result Comment: This test result might be falsely depressed or falsely elevated on samples drawn from patients taking Sulfasalazine and Sulfapyridine. Venipuncture should occur prior to taking either of these drugs. Performed By: #### C HEM8, CBCDIF #### Unless otherwise noted, all testing performed by [place] [address] CLIA: [id number] [employer] Mechanic Apprentice: Donald Brewster M.D. Potassium molar conc 4.5 mmol/L Normal 3.5-5.1 [facility] Comment on above: Performed By: #### C HEM8, CBCDIF #### Unless otherwise noted, all testing performed by [place] [address] CLIA: [id number] [employer] Apprentice: Donald Brewster M.D. Sodium molar conc 137 mmol/L Normal 135-145 [facility] Comment on above: Performed By: #### C HEM8, CBCDIF #### Unless otherwise noted, all testing performed by [place] [address] CLIA: [id number] [employer] App[employer]ice: Donald Brewster M.D. Urea nitrogen mass conc 28 mg/dL High 8-[address] [facility] Comment on above: Performed By: #### C HEM8, CBCDIF #### Unless otherwise noted, all testing performed by [place] [phone] CLIA: [id number] [employer] Apprentice: Donald Brewster M.D. CBC with Diffon 03-27-2018 Basophils #/vol (Bld) 0.0 K/mcL Normal 0-0.2 [facility] Comment on above: Performed By: #### C HEM8, CBCDIF #### Unless otherwise noted, all testing performed by [place] [phone] CLIA: [id number] [employer] Apprentice: Donald Brewster M.D. Basophils/100 WBC (Bld) 0.5 % Normal [facility] Comment on above: Performed By: #### C HEM8, CBCDIF #### Unless otherwise noted, all testing performed by [place] [address] CLIA: [id number] [employer] Mechan[employer] Apprentice: Donald Brewster M.D. Eosinophils #/vol (Bld) 0.2 K/mcL Normal 0-0.[address] [facility] Comment on above: Performed By: #### C HEM8, CBCDIF #### Unless otherwise noted, all testing performed by [place] [address] CLIA: [id number] [employer] Apprentice: Donald Brewster M.D. Eosinophils/100 WBC (Bld) 2.7 % Normal [facility] Comment on above: Performed By: #### C HEM8, CBCDIF #### Unless otherwise noted, all testing performed by [place] [address] CLIA: [id number] [employer] Apprentice: Donald Brewster M.D. Erythrocyte distribution width Ratio (RBC) 14.3 % Normal 10.0-14.[address] [facility] Comment on above: Performed By: #### C HEM8, CBCDIF #### Unless otherwise noted, all testing performed by [place] [address] CLIA: [id number] [employer] Mechan[employer] Apprentice: Donald Brewster M.D. Hematocrit Volume Fraction (Bld) 33.3 % Low 34.4-44.[address] [facility] Comment on above: Performed By: #### C HEM8, CBCDIF #### Unless otherwise noted, all testing performed by [place] [address] CLIA: [id number] [employer] Apprentice: Donald Brewster M.D. Hemoglobin mass conc (Bld) 10.8 g/dL Low 11.6-15.[address] [facility] Comment on above: Performed By: #### C HEM8, CBCDIF #### Unless otherwise noted, all testing performed by [place] [address] CLIA: [id number] [employer] Mechanic Apprentice: Donald Brewster M.D. Lymphocytes #/vol (Bld) 2.0 K/mcL Normal 1.0-3.[address] [facility] Comment on above: Performed By: #### C HEM8, CBCDIF #### Unless otherwise noted, all testing performed by [place] [address] CLIA: [id number] [employer] Apprentice: Donald Brewster M.D. Lymphocytes/100 WBC (Bld) 29.3 % Normal [facility] Comment on above: Performed By: #### C HEM8, CBCDIF #### Unless otherwise noted, all testing performed by [place] [address] CLIA: [id number] [employer] Mechan[employer] Apprentice: Donald Brewster M.D. MCH Entitic mass (RBC) 31.4 pg Normal 27.9-33.[address] [facility] Comment on above: Performed By: #### C HEM8, CBCDIF #### Unless otherwise noted, all testing performed by [place] [address] CLIA: [id number] [employer] Mechan[employer] Apprentice: Donald Brewster M.D. MCHC mass conc (RBC) 32.6 g/dL Low 33.1-35.1 [facility] Comment on above: Performed By: #### C HEM8, CBCDIF #### Unless otherwise noted, all testing performed by [place] [address] CLIA: [id number] [employer] Mechanic Apprentice: Donald Brewsetr M.D. MCV Entitic volume (RBC) 96.5 fL Normal 82.6-98.[address] [facility] Comment on above: Performed By: #### C HEM8, CBCDIF #### Unless otherwise noted, all testing performed by [address], [place] [address] CLIA: [id number] [employer] Apprentice: Donald Brewster M.D. Monocytes #/vol (Bld) 0.7 K/mcL High 0.1-0.6 [facility] Comment on above: Performed By: #### C HEM8, CBCDIF #### Unless otherwise noted, all testing performed by [place] [address] CLIA: [id number] [employer] Mechan[employer] Apprentice: Donald Brewster M.D. Monocytes/100 WBC (Bld) 10.2 % Normal [facility] Comment on above: Performed By: #### C HEM8, CBCDIF #### Unless otherwise noted, all testing performed by [place] [phone] CLIA: [id number] [employer] Mechan[employer] Apprentice: Donald Brewster M.D. Neutrophils #/vol (Bld) 3.8 K/mcL Normal 1.2-6.[address] [facility] Comment on above: Performed By: #### C HEM8, CBCDIF #### Unless otherwise noted, all testing performed by [place] [address] CLIA: [id number] [employer] Apprentice: Donald Brewster M.D. Platelet mean volume Entitic volume (Bld) 8.0 fL Normal 7.0-10.[address] [facility] Comment on above: Performed By: #### C HEM8, CBCDIF #### Unless otherwise noted, all testing performed by [place] [address] CLIA: [id number] [employer] Mechanic Apprentice: Donald Brewster M.D. Platelets #/vol (Bld) 264 K/mcL Normal 162-402 [facility] Comment on above: Performed By: #### C HEM8, CBCDIF #### Unless otherwise noted, all testing performed by [place] [address] CLIA: [id number] [employer] Mechan[employer] Apprentice: Donald Brewster M.D. RBC #/vol (Bld) 3.45 M/mcL Low 3.7-5.0 [facility] Comment on above: Performed By: #### C HEM8, CBCDIF #### Unless otherwise noted, all testing performed by [place] [address] CLIA: [id number] [employer] Mechanic Apprentice: Donald Brewster M.D. RBC morphology finding Nom (Bld) Normal Normal Normal [facility] Comment on above: Performed By: #### C HEM8, CBCDIF #### Unless otherwise noted, all testing performed by [place] [address] CLIA: [id number] [employer] Mechanic Apprentice: Donald Brewster M.D. Segmented Neut % 57.3 % Normal [facility] Comment on above: Result Comment: Smea r reviewed to verify automated differential> Performed By: #### C HEM8, CBCDIF #### Unless otherwise noted, all testing performed by [place] [address] CLIA: [id number] [employer] Mechan[employer] Apprentice: Donald Brewster M.D. WBC #/vol (Bld) 6.7 K/mcL Normal 3.4-10.6 [facility] Comment on above: Performed By: #### C HEM8, CBCDIF #### Unless otherwise noted, all testing performed by [address], [place] [address] CLIA: [id number] [employer] Mechanic Apprentice: Donald Brewster M.D. Basic Metabolic Panelon 02-15 Calcium mass conc 9.2 mg/dL Invalid Interpretation Code 8.4 - 10.2 mg/dL [facility] Chloride molar conc 105 mmol/L Invalid Interpretation Code 98 - 108 mmol/L [facility] CO2 molar conc 24 mmol/L Invalid Interpretation Code 21 - 32 mmol/L [facility] Creatinine mass conc 1.67 mg/dL High 0.6 - 1 .2 mg/dL [facility] GFR/1.73 sq M predicted among blacks MDRD vol rate/area (S/P/Bld) 36 mL/min/{1.73_m2} Low >60 ml/min/1.73s q.m [facility] Comment on above: GFR Calc GFR/1.73 sq M predicted among non-blacks MDRD vol rate/area (S/P/Bld) 30 mL/min/{1.73_m2} Low >60 ml/min/1.73s q.m [facility] Comment on above: Non- GFR Calc [...] Invalid Interpretation Code 70 - 99 mg/dL [facility] Comment on above: This test result tiff ht be falsely depressed or falsely elevated on samples drawn from patients taking Sulfasalazine and Sulfapyridine. Venipuncture should occur prior to taking either of these drugs. Interpretation and review of laboratory results Abnormal Invalid Interpretation Code [facility] Potassium molar conc 3.9 mmol/L Invalid Interpretation Code 3.5 - 5.1 mmol/L [facility] Sodium molar conc 140 mmol/L Invalid Interpretation Code 135 - 145 mmol/L [facility] Urea nitrogen mass conc 27 mg/dL High 8 - 25 mg/dL [facility] Calcium mass conc 9.2 mg/dL Normal 8.4-10.2 [facility] Comment on above: Performed By: #### C HEM8 #### Unless otherwise noted, all testing performed by [place] [address] CLIA: [id number] [employer] Apprentice: Donald Brewster M.D. Chloride molar conc 105 mmol/L Normal 98-108 [facility] Comment on above: Performed By: #### C HEM8 #### Unless otherwise noted, all testing performed by [place] [address] CLIA: [id number] [employer] Mechan[employer] Apprentice: Donald Brewster M.D. CO2 molar conc 24 mmol/L Normal 21-[address] [facility] Comment on above: Performed By: #### C HEM8 #### Unless otherwise noted, all testing performed by [place] [address] CLIA: [id number] [employer] App[employer]ice: Donald Brewster M.D. Creatinine mass conc 1.67 mg/dL High 0.60-1.20 [facility] Comment on above: Performed By: #### C HEM8 #### Unless otherwise noted, all testing performed by [place] [address] CLIA: [id number] [employer] Mechanic Apprentice: Donald Brewster M.D. GFR/1.73 sq M predicted among blacks MDRD vol rate/area (S/P/Bld) 36 mL/min/{1.73_m2} Low >60 [facility] Comment on above: Result Comment: Afri can [place] GFR Calc Performed By: #### C HEM8 #### Unless otherwise noted, all testing performed by [place] [address] CLIA: [id number] [employer] Mechan[employer] Apprentice: Donald Brewster M.D. GFR/1.73 sq M predicted among non-blacks MDRD vol rate/area (S/P/Bld) 30 mL/min/{1.73_m2} Low >60 [facility] Comment on above: Result Comment: Non- GFR [...] Unless otherwise noted, all testing performed by [place] [phone] CLIA: [id number] [employer] App[employer]ice: Donald Brewster M.D. Glucose mass conc 87 mg/dL Normal 70-99 [facility] Comment on above: Result Comment: This test result might be falsely depressed or falsely elevated on samples drawn from patients taking Sulfasalazine and Sulfapyridine. Venipuncture should occur prior to taking either of these drugs. Performed By: #### C HEM8 #### Unless otherwise noted, all testing performed by [place] [address] CLIA: [id number] [employer] Apprentice: Donald Brewster M.D. Potassium molar conc 3.9 mmol/L Normal 3.5-5.1 [facility] Comment on above: Performed By: #### C HEM8 #### Unless otherwise noted, all testing performed by [place] [address] CLIA: [id number] [employer] Mechan[employer] Apprentice: Donald Brewster M.D. Sodium molar conc 140 mmol/L Normal 135-145 [facility] Comment on above: Performed By: #### C HEM8 #### Unless otherwise noted, all testing performed by [place] [address] CLIA: [id number] [employer] Mechan[employer] Apprentice: Donald Brewster M.D. Urea nitrogen mass conc 27 mg/dL High 8-[address] [facility] Comment on above: Performed By: #### C HEM8 #### Unless otherwise noted, all testing performed by [place] [address] CLIA: [id number] [employer] Mechan[employer] Apprentice: Donald Brewster M.D. CBCon 03-03-2018 Erythrocyte distribution width Auto Ratio (RBC) 15.5 % High 10 - 14.4 % [facility] Hematocrit Auto Volume Fraction (Bld) 32.9 % Low 34.4 - 44.8 % [facility] Hemoglobin mass conc (Bld) 11.2 g/dL Low 11.6 - 15.4 g/dL [facility] Interpretation and review of laboratory results Abnormal Invalid Interpretation Code [facility] MCH Auto Entitic mass (RBC) 33.2 pg Invalid Interpretation Code 27.9 - 33.9 pg [facility] MCHC Auto mass conc (RBC) 34.1 g/dL Invalid Interpretation Code 33.1 - 35.1 g/dL [facility] MCV Auto Entitic volume (RBC) 97.5 fL Invalid Interpretation Code [facility] Platelet mean volume Auto Entitic volume (Bld) 7.5 fL Invalid Interpretation Code [facility] Platelets Auto #/vol (Bld) 290 10*3/uL Invalid Interpretation Code [facility] RBC Auto #/vol (Bld) 3.38 10*6/uL Low [facility] WBC Auto #/vol (Bld) 6.6 10*3/uL Invalid Interpretation Code [facility] CBC w/o Diffon 03-03-2018 Erythrocyte distribution width Ratio (RBC) 15.5 % High 10.0-14.[address] [facility] Comment on above: Performed By: #### C BCWOD #### Unless otherwise noted, all testing performed by [place] [address] CLIA: [id number] [employer] Apprentice: Donald Brewster M.D. Hematocrit Volume Fraction (Bld) 32.9 % Low 34.4-44.[address] [facility] Comment on above: Performed By: #### C BCWOD #### Unless otherwise noted, all testing performed by [place] [address] CLIA: [id number] [employer] Mechan[employer] Apprentice: Donald Brewster M.D. Hemoglobin mass conc (Bld) 11.2 g/dL Low 11.6-15.[address] [facility] Comment on above: Performed By: #### C BCWOD #### Unless otherwise noted, all testing performed by [place] [phone] CLIA: [id number] [employer] Mechanic Apprentice: Donald Brewster M.D. MCH Entitic mass (RBC) 33.2 pg Normal 27.9-33.[address] [facility] Comment on above: Performed By: #### C BCWOD #### Unless otherwise noted, all testing performed by [place] [address] CLIA: [id number] [employer] Mechanic Apprentice: Donald Brewster M.D. MCHC mass conc (RBC) 34.1 g/dL Normal 33.1-35.1 [facility] Comment on above: Performed By: #### C BCWOD #### Unless otherwise noted, all testing performed by [place] [address] CLIA: [id number] [employer] Mechanic Apprentice: Donald Brewster M.D. MCV Entitic volume (RBC) 97.5 fL Normal 82.6-98.[address] [facility] Comment on above: Performed By: #### C BCWOD #### Unless otherwise noted, all testing performed by [place] [address] CLIA: [id number] [employer] Mechanic Apprentice: Donald Brewster M.D. Platelet mean volume Entitic volume (Bld) 7.5 fL Normal 7.0-10.[address] [facility] Comment on above: Performed By: #### C BCWOD #### Unless otherwise noted, all testing performed by [place] [address] CLIA: [id number] [employer] Mechanic Apprentice: Donald Brewster M.D. Platelets #/vol (Bld) 290 K/mcL Normal 162-402 [facility] Comment on above: Performed By: #### C BCWOD #### Unless otherwise noted, all testing performed by [place] [phone] CLIA: [id number] [employer] Mechanic Apprentice: Donald Brewster M.D. RBC #/vol (Bld) 3.38 M/mcL Low 3.7-5.0 [facility] Comment on above: Performed By: #### C BCWOD #### Unless otherwise noted, all testing performed by [place] [address] CLIA: [id number] Autom[employer] Mechanic Apprentice: oDnald Brewster M.D. WBC #/vol (Bld) 6.6 K/mcL Normal 3.4-10.6 [facility] Comment on above: Performed By: #### C BCWOD #### Unless otherwise noted, all testing performed by [facility] [address] [place], [place] [address] CLIA: [id number] [employer] Mechanic Apprentice: Donald Brewster M.D. Office Visit: Spine Visiton 12-11-2016 Protein mass conc Done Invalid Interpretation Code [facility] Work Phone: Tobacco smoking status NHIS Never smoker Invalid Interpretation Code [facility] Work Phone: [phone] Office Visiton 11-07-2016 Documentation of current medications (procedure) Done Invalid Interpretation Code [facility] Work Phone: [phone] Tobacco use CPHS Never smoker Invalid Interpretation Code [facility] Work Phone: Office Visit: Spine Visiton 10-23-2016 [facility] conc [facility] Work Phone: Tobacco smoking status NHIS Never smoker [facility] Work Phone: [phone] Office Visiton 07-31-2012 Protein [facility] conc [facility] Work Phone: Protein mass conc Done [facility] Work Phone: Office Visiton 01-10-2012 Tobacco smoking status NHIS never smoker [facility] Work Phone: Vital Signs Date Time Vital Sign Value Performing Clinician Facility 09-23-2024 10:47-0400 Body height 153.9 cm Neel Turpin MD Work Phone: [facility] 09-23-2024 10:47-0400 Body mass index (BMI) [Ratio] 53.56 kg/m2 Neel Turpin MD Work Phone: [facility] 09-23-2024 10:47-0400 Body weight 126.9 kg Neel Turpin MD Work Phone: [facility] 09-23-2024 10:47-0400 Diastolic blood pressure 68 mm[Hg] Neel Turpin MD Work Phone: [facility] 09-23-2024 10:47-0400 Heart rate 96 /min Neel Turpin MD Work Phone: [facility] 09-23-2024 10:47-0400 SaO2% (BldA) [Mass fraction] 94 % Neel Turpin MD Work Phone: [facility] 09-23-2024 10:47-0400 Systolic blood pressure 102 mm[Hg] Neel Turpin MD Work Phone: [facility] 08-19-2024 09:34-0400 Body mass index (BMI) [Ratio] 46.02 kg/m2 Kacy Tyra TIRE REPAIRMAN.TECHNICAL STAFF ENGINEER Work Phone: [facility] 08-19-2024 09:34-0400 Body weight 121.6 kg Kacy MaTyra TIRE REPAIRMAN.TECHNICAL STAFF ENGINEER Work Phone: [facility] 08-19-2024 09:34-0400 Diastolic blood pressure 86 mm[Hg] Kacy Tyra TIRE REPAIRMAN.TECHNICAL STAFF ENGINEER Work Phone: [facility] 08-19-2024 09:34-0400 Heart rate 88 /min Kacy MaTyra TIRE REPAIRMAN.TECHNICAL STAFF ENGINEER Work Phone: [facility] 08-19-2024 09:34-0400 Respiratory rate 14 /min Kacy MaTyra TIRE REPAIRMAN.TECHNICAL STAFF ENGINEER Work Phone: [facility] 08-19-2024 09:34-0400 SaO2% (BldA) [Mass fraction] 94 % Kacy MaTyra TIRE REPAIRMAN.TECHNICAL STAFF ENGINEER Work Phone: [facility] 08-19-2024 09:34-0400 Systolic blood pressure 124 mm[Hg] Kacy Tyra TIRE REPAIRMAN.TECHNICAL STAFF ENGINEER Work Phone: [facility] 07-06-2024 08:08-0400 Body mass index (BMI) [Ratio] 44.63 kg/m2 Kacy Tyra TIRE REPAIRMAN.TECHNICAL STAFF ENGINEER Work Phone: [facility] 07-06-2024 08:08-0400 Body weight 117.94 kg Kacy Tyra TIRE REPAIRMAN.TECHNICAL STAFF ENGINEER Work Phone: [facility] 07-06-2024 08:08-0400 Diastolic blood pressure 76 mm[Hg] Kacy Tyra TIRE REPAIRMAN.TECHNICAL STAFF ENGINEER Work Phone: [facility] 07-06-2024 08:08-0400 Heart rate 86 /min Kacy Tyra TIRE REPAIRMAN.TECHNICAL STAFF ENGINEER Work Phone: [facility] 07-06-2024 08:08-0400 Systolic blood pressure 118 mm[Hg] Kacy Tyra TIRE REPAIRMAN.TECHNICAL STAFF ENGINEER Work Phone: [facility] 03-25-2024 10:57-0500 Body mass index (BMI) [Ratio] 49.19 kg/m2 Kacy Tyra TIRE REPAIRMAN.TECHNICAL STAFF ENGINEER Work Phone: [facility] 03-25-2024 10:57-0500 Body weight 130 kg Kacy MaTyra TIRE REPAIRMAN.TECHNICAL STAFF ENGINEER Work Phone: [facility] 03-25-2024 10:57-0500 Diastolic blood pressure 84 mm[Hg] Kacy Tyra TIRE REPAIRMAN.TECHNICAL STAFF ENGINEER Work Phone: [facility] 03-25-2024 10:57-0500 Heart rate 95 /min Kacy MaTyra TIRE REPAIRMAN.TECHNICAL STAFF ENGINEER Work Phone: [facility] 03-25-2024 10:57-0500 Respiratory rate 16 /min Kacy MaTyra TIRE REPAIRMAN.TECHNICAL STAFF ENGINEER Work Phone: [facility] 03-25-2024 10:57-0500 SaO2% (BldA) [Mass fraction] 98 % Kacy Tyra TIRE REPAIRMAN.TECHNICAL STAFF ENGINEER Work Phone: [facility] 03-25-2024 10:57-0500 Systolic blood pressure 124 mm[Hg] Kacy Tyra TIRE REPAIRMAN.TECHNICAL STAFF ENGINEER Work Phone: [facility] 03-24-2024 10:32-0500 Body height 157.5 cm Paula Piasecki DO Work Phone: [facility] 03-24-2024 10:32-0500 Body mass index (BMI) [Ratio] 47.55 kg/m2 Paula Piasecki DO Work Phone: [facility] 03-24-2024 10:32-0500 Body temperature 97.5 [degF] Paula Piasecki DO Work Phone: [facility] 03-24-2024 10:32-0500 Body weight 117.94 kg Paula Piasecki DO Work Phone: [facility] 03-24-2024 10:32-0500 Diastolic blood pressure 91 mm[Hg] Paula Piasecki DO Work Phone: [facility] 03-24-2024 10:32-0500 Heart rate 128 /min Paula Piflorescki DO Work Phone: [facility] 03-24-2024 10:32-0500 SaO2% (BldA) [Mass fraction] 97 % Paula Piasecki DO Work Phone: [facility] 03-24-2024 10:32-0500 Systolic blood pressure 125 mm[Hg] Paula Pifloresckmoshe DO Work Phone: [facility] 03-05-2024 11:05-0500 Body height 157.5 cm Chris Antoine MD Work Phone: [facility] 03-05-2024 11:05-0500 Body mass index (BMI) [Ratio] 46.84 kg/m2 Chris Antoine MD Work Phone: [facility] 03-05-2024 11:05-0500 Body weight 116.17 kg Chris Antoine MD Work Phone: [facility] 03-05-2024 11:05-0500 Diastolic blood pressure 78 mm[Hg] Chris Antoine MD Work Phone: [facility] 03-05-2024 11:05-0500 Heart rate 87 /min Chris Antoine MD Work Phone: [facility] 03-05-2024 11:05-0500 SaO2% (BldA) [Mass fraction] 94 % Chris Antoine MD Work Phone: [facility] 03-05-2024 11:05-0500 Systolic blood pressure 124 mm[Hg] Chris Antoine MD Work Phone: [facility] 09-23-2023 09:08-0400 Diastolic blood pressure 78 mm[Hg] Kacy Tyra TIRE REPAIRMAN.TECHNICAL STAFF ENGINEER Work Phone: [facility] 09-23-2023 09:08-0400 Heart rate 87 /min Kacy Tyra TIRE REPAIRMAN.TECHNICAL STAFF ENGINEER Work Phone: [facility] 09-23-2023 09:08-0400 Respiratory rate 18 /min Kacy Tyra TIRE REPAIRMAN.TECHNICAL STAFF ENGINEER Work Phone: [facility] 09-23-2023 09:08-0400 SaO2% (BldA) [Mass fraction] 93 % Kacy Tyra TIRE REPAIRMAN.TECHNICAL STAFF ENGINEER Work Phone: [facility] 09-23-2023 09:08-0400 Systolic blood pressure 118 mm[Hg] Kacy Tyra TIRE REPAIRMAN.TECHNICAL STAFF ENGINEER Work Phone: [facility] 09-16-2023 11:21-0400 Body height 160 cm Paula Walter DO Work Phone: [facility] 09-16-2023 11:21-0400 Body mass index (BMI) [Ratio] 46.41 kg/m2 Paula Walter DO Work Phone: [facility] 09-16-2023 11:21-0400 Body temperature 97.3 [degF] Paula Walter DO Work Phone: [facility] 09-16-2023 11:21-0400 Body weight 118.84 kg Paula Robledocki DO Work Phone: [facility] 09-16-2023 11:21-0400 Diastolic blood pressure 77 mm[Hg] Paula Piasecki DO Work Phone: [facility] 09-16-2023 11:21-0400 Heart rate 87 /min Paula Robledocki DO Work Phone: [facility] 09-16-2023 11:21-0400 SaO2% (BldA) [Mass fraction] 96 % Paula Robledocki DO Work Phone: [facility] 09-16-2023 11:21-0400 Systolic blood pressure 123 mm[Hg] Paula Piasecki DO Work Phone: [facility] 09-12-2023 10:40-0400 Body height 160 cm Chris Antoine MD Work Phone: [facility] 09-12-2023 10:40-0400 Body mass index (BMI) [Ratio] 47.47 kg/m2 Chris Antoine MD Work Phone: [facility] 09-12-2023 10:40-0400 Body weight 121.56 kg Chris Antoine MD Work Phone: [facility] 09-12-2023 10:40-0400 Diastolic blood pressure 80 mm[Hg] Chris Antoine MD Work Phone: [facility] 09-12-2023 10:40-0400 Heart rate 96 /min Chris Antoine MD Work Phone: [facility] 09-12-2023 10:40-0400 SaO2% (BldA) [Mass fraction] 95 % Chris Antoine MD Work Phone: [facility] 09-12-2023 10:40-0400 Systolic blood pressure 138 mm[Hg] Chris Antoine MD Work Phone: [facility] 09-11-2023 11:35-0400 SaO2% (BldA) [Mass fraction] 95 % Tony Menendez MD Work Phone: [facility] 09-11-2023 08:00-0400 Body temperature 97.2 [degF] Tony Menendez MD Work Phone: [facility] 09-11-2023 08:00-0400 Diastolic blood pressure 69 mm[Hg] Tony Menendez MD Work Phone: [facility] 09-11-2023 08:00-0400 Heart rate 92 /min Tony Menendez MD Work Phone: [facility] 09-11-2023 08:00-0400 Respiratory rate 18 /min Tony Menendez MD Work Phone: [facility] 09-11-2023 08:00-0400 Systolic blood pressure 111 mm[Hg] Tony Menendez MD Work Phone: [facility] 09-10-2023 05:45-0400 Body mass index (BMI) [Ratio] 46.98 kg/m2 Tony Menendez MD Work Phone: [facility] 09-10-2023 05:45-0400 Body weight 120.3 kg Tony Menendez MD Work Phone: [facility] 09-09-2023 08:35-0400 Body height 160 cm Tony Menendez MD Work Phone: [facility] 07-17-2023 09:42-0400 Body height 160.02 cm [facility] 07-17-2023 09:42-0400 Body mass index (BMI) [Ratio] 45.3 kg/m2 [facility] 07-17-2023 09:42-0400 Body temperature 97.1 [degF] [facility] 07-17-2023 09:42-0400 Body weight 116.11 kg [facility] 07-17-2023 09:42-0400 Diastolic blood pressure 42 mm[Hg] [facility] 07-17-2023 09:42-0400 Heart rate 82 /min [facility] 07-17-2023 09:42-0400 Respiratory rate 16 /min [facility] 07-17-2023 09:42-0400 SaO2% (BldA) [Mass fraction] 93 % [facility] 07-17-2023 09:42-0400 Systolic blood pressure 104 mm[Hg] [facility] 05-01-2023 10:15-0500 Body temperature 98.1 [degF] Neel Turpin MD Work Phone: [facility] 05-01-2023 10:15-0500 Body weight 119.75 kg Neel Turpin MD Work Phone: [facility] 05-01-2023 10:15-0500 Diastolic blood pressure 68 mm[Hg] Neel Turpin MD Work Phone: [facility] 05-01-2023 10:15-0500 Heart rate 88 /min Neel Turpin MD Work Phone: [facility] 05-01-2023 10:15-0500 Respiratory rate 16 /min Neel Turpin MD Work Phone: [facility] 05-01-2023 10:15-0500 Systolic blood pressure 118 mm[Hg] Neel Turpin MD Work Phone: [facility] 04-15-2023 11:17-0500 Body height 160 cm Paula Walter DO Work Phone: [facility] 04-15-2023 11:17-0500 Body mass index (BMI) [Ratio] 45.7 kg/m2 Paula Walter DO Work Phone: [facility] 04-15-2023 11:17-0500 Body temperature 96.8 [degF] Paula Walter DO Work Phone: [facility] 04-15-2023 11:17-0500 Body weight 117.03 kg Paula Hannai DO Work Phone: [facility] 04-15-2023 11:17-0500 Diastolic blood pressure 68 mm[Hg] Paula Vangasecki DO Work Phone: [facility] 04-15-2023 11:17-0500 Heart rate 100 /min Paula Robledocki DO Work Phone: [facility] 04-15-2023 11:17-0500 SaO2% (BldA) [Mass fraction] 95 % Paula Robledocki DO Work Phone: [facility] 04-15-2023 11:17-0500 Systolic blood pressure 130 mm[Hg] Paula Vangasecki DO Work Phone: [facility] 01-04-2023 10:21-0400 Diastolic blood pressure 66 mm[Hg] Kacy Older TIRE REPAIRMAN.TECHNICAL STAFF ENGINEER Work Phone: [facility] 01-04-2023 10:21-0400 Heart rate 96 /min Kacy Older TIRE REPAIRMAN.TECHNICAL STAFF ENGINEER Work Phone: [facility] 01-04-2023 10:21-0400 Respiratory rate 18 /min Kacy Older TIRE REPAIRMAN.TECHNICAL STAFF ENGINEER Work Phone: [facility] 01-04-2023 10:21-0400 SaO2% (BldA) [Mass fraction] 92 % Kacy Older TIRE REPAIRMAN.TECHNICAL STAFF ENGINEER Work Phone: [facility] 01-04-2023 10:21-0400 Systolic blood pressure 106 mm[Hg] Kacy Older TIRE REPAIRMAN.TECHNICAL STAFF ENGINEER Work Phone: [facility] 12-28-2022 12:08-0400 Body height 160 cm Chris Antoine MD Work Phone: [facility] 12-28-2022 12:08-0400 Body mass index (BMI) [Ratio] 45.08 kg/m2 Chris Antoine MD Work Phone: [facility] 12-28-2022 12:08-0400 Body weight 115.44 kg Chris Antoine MD Work Phone: [facility] 12-28-2022 12:08-0400 Diastolic blood pressure 66 mm[Hg] Chris Antoine MD Work Phone: [facility] 12-28-2022 12:08-0400 Heart rate 89 /min Chris Antoine MD Work Phone: [facility] 12-28-2022 12:08-0400 SaO2% (BldA) [Mass fraction] 95 % Chris Antoine MD Work Phone: [facility] 12-28-2022 12:08-0400 Systolic blood pressure 112 mm[Hg] Chris Antoine MD Work Phone: [facility] 10-11-2022 11:19-0400 Body height 160.02 cm Neel Turpin Work Phone: MS-Dxxgssmafn-Jwlwe [address] Work Phone: 10-11-2022 11:19-0400 Body mass index (BMI) [Ratio] Patient Reason Not Done Neel Turpin Work Phone: OI-Niqajlycuq-Nnrlf [address] Work Phone: 10-11-2022 11:19-0400 Diastolic blood pressure 86 mm[Hg] Neel Turpin Work Phone: OK-Bokqubxyvq-Mmjrd [address] Work Phone: 10-11-2022 11:19-0400 Heart rate 95 /min Neel Turpin Work Phone: VD-Enmlgwgvyb-Hrzeu [address] Work Phone: 10-11-2022 11:19-0400 SaO2% (BldA) [Mass fraction] 89 % Neel Turpin Work Phone: SH-Zyrfmemrnw-Mocsw [address] Work Phone: 10-11-2022 11:19-0400 Systolic blood pressure 118 mm[Hg] Neel Turpin Work Phone: SG-Dqoglmspce-Bopte [address] Work Phone: 10-03-2022 18:12-0400 Body height 159.9 cm Claus Browne MD Work Phone: [facility] 10-03-2022 18:12-0400 Body mass index (BMI) [Ratio] 46.15 kg/m2 Claus Browne MD Work Phone: [facility] 10-03-2022 18:12-0400 Body weight 118 kg Claus Browne MD Work Phone: [facility] 08-15-2022 08:09-0400 Body weight 120.2 kg Kacy Older TIRE REPAIRMAN.TECHNICAL STAFF ENGINEER Work Phone: [facility] 08-15-2022 08:09-0400 Diastolic blood pressure 74 mm[Hg] Kacy Older TIRE REPAIRMAN.TECHNICAL STAFF ENGINEER Work Phone: [facility] 08-15-2022 08:09-0400 Heart rate 72 /min Kacy Older TIRE REPAIRMAN.TECHNICAL STAFF ENGINEER Work Phone: [facility] 08-15-2022 08:09-0400 Respiratory rate 16 /min Kacy Older TIRE REPAIRMAN.TECHNICAL STAFF ENGINEER Work Phone: [facility] 08-15-2022 08:09-0400 Systolic blood pressure 116 mm[Hg] Kacy Older TIRE REPAIRMAN.TECHNICAL STAFF ENGINEER Work Phone: [facility] 08-07-2022 15:16-0400 Body height 160.02 cm Neel Turpin Work Phone: [facility] Work Phone: 08-07-2022 15:16-0400 Body mass index (BMI) [Ratio] 45.17 kg/m2 Neel Turpin Work Phone: [facility] 3 DO Work Phone: 08-07-2022 15:16-0400 Body surface area Derived from formula 2.14 m2 Neel Turpin Work Phone: [facility] 3 DO Work Phone: 08-07-2022 15:16-0400 Body weight 115.67 kg Neel Turpin Work Phone: [facility] 3 DO Work Phone: 08-07-2022 15:16-0400 Diastolic blood pressure 62 mm[Hg] Neel Turpin Work Phone: [facility] 3 DO Work Phone: 08-07-2022 15:16-0400 Heart rate 88 /min Neel Turpin Work Phone: [facility] 3 DO Work Phone: 08-07-2022 15:16-0400 SaO2% (BldA) [Mass fraction] 96 % Neel Turpin Work Phone: [facility] 3 DO Work Phone: 08-07-2022 15:16-0400 Systolic blood pressure 86 mm[Hg] Neel Turpin Work Phone: [facility] 3 DO Work Phone: 08-06-2022 11:03-0400 Body height 160.02 cm Neel Turpin Work Phone: [facility] 3 DO Work Phone: 08-06-2022 11:03-0400 Body mass index (BMI) [Ratio] 46.55 kg/m2 Neel Turpin Work Phone: [facility] 3 DO Work Phone: 08-06-2022 11:03-0400 Body surface area Derived from formula 2.17 m2 Neel Turpin Work Phone: [facility] 3 DO Work Phone: 08-06-2022 11:03-0400 Body temperature 97.5 [degF] Neel Turpin Work Phone: [facility] 3 DO Work Phone: 08-06-2022 11:03-0400 Body weight 119.21 kg Neel Turpin Work Phone: [facility] 3 DO Work Phone: 08-06-2022 11:03-0400 Diastolic blood pressure 70 mm[Hg] Neel Turpin Work Phone: [facility] 3 DO Work Phone: 08-06-2022 11:03-0400 Heart rate 88 /min Neel Turpin Work Phone: [facility] 3 DO Work Phone: 08-06-2022 11:03-0400 SaO2% (BldA) [Mass fraction] 95 % Neel Turpin Work Phone: [facility] 3 DO Work Phone: 08-06-2022 11:03-0400 Systolic blood pressure 122 mm[Hg] Neel Turpin Work Phone: [facility] 3 DO Work Phone: 06-27-2022 11:05-0400 Body height 160.02 cm Neel D Turpin Work Phone: FT-Cajzuulluh-Jahvw [address] Work Phone: 06-27-2022 11:05-0400 Body mass index (BMI) [Ratio] 46.97 kg/m2 Neel Reynoso Turpin Work Phone: WK-Egxekfthdn-Qmjig nd [address] Work Phone: 06-27-2022 11:05-0400 Body surface area Derived from formula 2.18 m2 Neel Reynoso Turpin Work Phone: VA-Lvktpuvsja-Aympj [address] Work Phone: 06-27-2022 11:05-0400 Body weight 120.26 kg Neel Jacksonquez Work Phone: FF-Jomzybnvye-Lzmlt nd [address] Work Phone: 06-27-2022 11:05-0400 Diastolic blood pressure 70 mm[Hg] Neel D Turpin Work Phone: QA-Coipaeymnw-Dxuqz nd [address] Work Phone: 06-27-2022 11:05-0400 Heart rate 76 /min Neel D Turpin Work Phone: GB-Ajbhxqypit-Ufluz nd [address] Work Phone: 06-27-2022 11:05-0400 SaO2% (BldA) [Mass fraction] 95 % Neel Marinaasquez Work Phone: TX-Nmogmyhpio-Znell nd [address] Work Phone: 06-27-2022 11:05-0400 Systolic blood pressure 116 mm[Hg] Neel D Turpin Work Phone: LE-Bcwcnnxacu-Tipgd nd [address] Work Phone: 05-22-2022 11:19-0500 Body height 160.02 cm Neel Jessie Turpin Work Phone: [facility] 400 DO Work Phone: 05-22-2022 11:19-0500 Body mass index (BMI) [Ratio] 47.44 kg/m2 Neel Turpin Work Phone: [facility] 400 DO Work Phone: 05-22-2022 11:19-0500 Body surface area Derived from formula 2.19 m2 Neel Turpin Work Phone: [facility] 400 DO Work Phone: 05-22-2022 11:19-0500 Body temperature 96.9 [degF] Neel Turpin Work Phone: [facility] 400 DO Work Phone: 05-22-2022 11:19-0500 Body weight 121.47 kg Neel Turpin Work Phone: [facility] 400 DO Work Phone: 05-22-2022 11:19-0500 Heart rate 106 /min Neel Turpin Work Phone: [facility] 400 DO Work Phone: 05-22-2022 11:19-0500 SaO2% (BldA) [Mass fraction] 94 % Neel Turpin Work Phone: [facility] 400 DO Work Phone: 04-27-2022 10:36-0500 Body weight 127.01 kg Neel Turpin MD Work Phone: [facility] 04-27-2022 10:36-0500 Diastolic blood pressure 67 mm[Hg] Neel Turpin MD Work Phone: [facility] 04-27-2022 10:36-0500 Heart rate 86 /min Neel Turpin MD Work Phone: [facility] 04-27-2022 10:36-0500 Respiratory rate 16 /min Neel Turpin MD Work Phone: [facility] 04-27-2022 10:36-0500 SaO2% (BldA) [Mass fraction] 95 % Neel Turpin MD Work Phone: [facility] 04-27-2022 10:36-0500 Systolic blood pressure 109 mm[Hg] Neel Turpin MD Work Phone: [facility] 04-27-2022 09:40-0500 Body height 160.02 cm [facility] 04-27-2022 09:40-0500 Body mass index (BMI) [Ratio] 46.5 kg/m2 [facility] 04-27-2022 09:40-0500 Body temperature 97 [degF] [facility] 04-27-2022 09:40-0500 Body weight 119.29 kg [facility] 04-27-2022 09:40-0500 Diastolic blood pressure 68 mm[Hg] [facility] 04-27-2022 09:40-0500 Heart rate 92 /min [facility] 04-27-2022 09:40-0500 Respiratory rate 16 /min [facility] 04-27-2022 09:40-0500 SaO2% (BldA) [Mass fraction] 98 % [facility] 04-27-2022 09:40-0500 Systolic blood pressure 141 mm[Hg] [facility] 04-23-2022 11:03-0500 Body height 160.02 cm Neel Turpin [facility] Work Phone: 04-23-2022 11:03-0500 Body mass index (BMI) [Ratio] 49.35 kg/m2 Neel Turpin Work [facility] 400 DO Work Phone: 04-23-2022 11:03-0500 Body surface area Derived from formula 2.23 m2 Neel Turpin Work Phone: [facility] 400 DO Work Phone: 04-23-2022 11:03-0500 Body temperature 96.8 [degF] Neel Turpin Work Phone: [facility] 400 DO Work Phone: 04-23-2022 11:03-0500 Body weight 126.37 kg Neel Turpin Work Phone: [facility] 400 DO Work Phone: 04-23-2022 11:03-0500 Diastolic blood pressure 68 mm[Hg] Neel Turpin Work Phone: [facility] 400 DO Work Phone: 04-23-2022 11:03-0500 Heart rate 104 /min Neel Turpin Work Phone: -[facility] 400 DO Work Phone: 04-23-2022 11:03-0500 SaO2% (BldA) [Mass fraction] 92 % Neel Turpin Work Phone: -[facility] 400 DO Work Phone: 04-23-2022 11:03-0500 Systolic blood pressure 130 mm[Hg] Neel Turpin Work Phone: -[facility] 400 DO Work Phone: 04-16-2022 13:27-0500 Body temperature 37.0 {degrees_C} Neel Turpin Work Phone: [facility] 400 DO Work Phone: Comment on above: NOTE: PATIENT RESULTS ARE NOT CORRECTED FOR TEMPERATURE. 04-16-2022 13:27-0500 SaO2% (BldA) [Mass fraction] 98 % Neel Turpin Work Phone: [facility] 400 DO Work Phone: 04-09-2022 11:11-0500 Body height 160.02 cm Neel Turpin Work Phone: [facility] 400 DO Work Phone: 04-09-2022 11:11-0500 Body mass index (BMI) [Ratio] 47.65 kg/m2 Neel Turpin Work Phone: [facility] 400 DO Work Phone: 04-09-2022 11:11-0500 Body surface area Derived from formula 2.19 m2 Neel Turpin Work Phone: [facility] 400 DO Work Phone: 04-09-2022 11:11-0500 Body temperature 97.1 [degF] Neel Turpin Work Phone: [facility] 400 DO Work Phone: 04-09-2022 11:11-0500 Body weight 122.02 kg Neel Turpin Work Phone: [facility] 400 DO Work Phone: 04-09-2022 11:11-0500 Diastolic blood pressure 74 mm[Hg] Neel Turpin Work Phone: [facility] 400 DO Work Phone: 04-09-2022 11:11-0500 Heart rate 108 /min Neel Turpin Work Phone: [facility] 400 DO Work Phone: 04-09-2022 11:11-0500 SaO2% (BldA) [Mass fraction] 92 % Neel Turpin Work Phone: [facility] 400 DO Work Phone: 04-09-2022 11:11-0500 Systolic blood pressure 132 mm[Hg] Neel Turpin Work Phone: [facility] 400 DO Work Phone: 03-28-2022 11:43-0500 Body height 160.02 cm Neel Turpin Work Phone: BU-Ojwvmflmej-Hwfsz nd [address] Work Phone: 03-28-2022 11:43-0500 Body mass index (BMI) [Ratio] 47.75 kg/m2 Neel Turpin Work Phone: WG-Udwdhgdtnd-Hyzoz nd [address] Work Phone: 03-28-2022 11:43-0500 Body surface area Derived from formula 2.2 m2 Neel Turpin Work Phone: DA-Emadydrnuk-Piuec nd [address] Work Phone: 03-28-2022 11:43-0500 Body weight 122.27 kg Neel Turpin Work Phone: HQ-Ypxxlrmgxq-Ymslf nd [address] Work Phone: 03-28-2022 11:43-0500 Diastolic blood pressure 74 mm[Hg] Neel Turpin Work Phone: KQ-Bakjcabyrx-Xxpad nd [address] Work Phone: 03-28-2022 11:43-0500 Heart rate 108 /min Neel Turpin Work Phone: BF-Appvgdsxxw-Hvzbl nd [address] Work Phone: 03-28-2022 11:43-0500 SaO2% (BldA) [Mass fraction] 97 % Neel Turpin Work Phone: LE-Wvzpebstzg-Inlvz nd [address] Work Phone: 03-28-2022 11:43-0500 Systolic blood pressure 132 mm[Hg] Neel Turpin Work Phone: FM-Nuokyncqsc-Oyaxm nd [address] Work Phone: 03-02-2022 09:05-0500 Body height 160.[address] Neel Turpin Work Phone: 6(243)995-936551 [place] [address] 03-02-2022 09:05-0500 Body mass index (BMI) [Ratio] 50.3 kg/m2 Dr. Neel Turpin Work Phone: 4(180)961-291335 [place] [address] 03-02-2022 09:05-0500 Body temperature 97 [degF] Dr. Neel Turpin Work Phone: 9(000)742-383635 [place] [address] 03-02-2022 09:05-0500 Body weight 128.[address] Neel Turpin Work Phone: 1(174)748-044751 [place] [address] 03-02-2022 09:05-0500 Diastolic blood pressure 81 mm[Hg] Dr. Neel Turpin Work Phone: 7(060)513-736051 [place] [address] 03-02-2022 09:05-0500 Heart rate 101 /min Dr. Neel Turpin Work Phone: 9(088)807-739151 [place] [address] 03-02-2022 09:05-0500 Inhaled oxygen flow rate 2 L/min Dr. Neel Turpin Work Phone: 2(150)549-007235 [place] [address] 03-02-2022 09:05-0500 Respiratory rate 16 /min Dr. Neel Turpin Work Phone: 7(834)276-976251 [place] [address] 03-02-2022 09:05-0500 SaO2% (BldA) [Mass fraction] 98 % Dr. Neel Turpin Work Phone: [facility] 03-02-2022 09:05-0500 Systolic blood pressure 130 mm[Hg] Dr. Neel Turpin Work Phone: [facility] 02-22-2022 15:07-0500 Body temperature 97.59 [degF] Neel Turpin MD Work Phone: [facility] 02-22-2022 15:07-0500 Body weight 129 kg Neel Turpin MD Work Phone: [facility] 02-22-2022 15:07-0500 Diastolic blood pressure 78 mm[Hg] Neel Turpin MD Work Phone: [facility] 02-22-2022 15:07-0500 Heart rate 102 /min Neel Turpin MD Work Phone: [facility] 02-22-2022 15:07-0500 Respiratory rate 20 /min Neel Turpin MD Work Phone: [facility] 02-22-2022 15:07-0500 SaO2% (BldA) [Mass fraction] 96 % Neel Turpin MD Work Phone: [facility] 02-22-2022 15:07-0500 Systolic blood pressure 134 mm[Hg] Neel Turpin MD Work Phone: [facility] 01-29-2022 15:57-0500 Heart rate 107 /min Neel Turpin Other Phone: [facility] 01-29-2022 15:57-0500 Respiratory rate 18 /min Neel Turpin Other Phone: [facility] 01-29-2022 09:34-0500 Body temperature 97.7 [degF] Neel Turpin Other Phone: [facility] 01-29-2022 09:34-0500 Diastolic blood pressure 74 mm[Hg] Neel Turpin Other Phone: [facility] 01-29-2022 09:34-0500 SaO2% (BldA) [Mass fraction] 96 % Neel Turpin Other Phone: [facility] 01-29-2022 09:34-0500 Systolic blood pressure 121 mm[Hg] Neel Turpin Other Phone: [facility] 12-29-2021 09:51-0400 Body height 160.[address] Neel Turpin Work Phone: [facility] Work Phone: 12-29-2021 09:51-0400 Body mass index (BMI) [Ratio] 47.8 kg/m2 Dr. Neel Turpin Work Phone: 5(380)447-148651 [place] [address] 12-29-2021 09:51-0400 Body weight 122.[address] Neel Turpin Work Phone: 3(926)395-014451 [place] [address] 12-29-2021 09:51-0400 Heart rate 99 /min Dr. Neel Turpin Work Phone: 1(869)042-990651 [place] [address] 12-29-2021 09:51-0400 Respiratory rate 16 /min Dr. Neel Turpin Work Phone: 7(267)041-258451 [place] [address] 12-29-2021 09:51-0400 SaO2% (BldA) [Mass fraction] 100 % Dr. Neel Turpin Work Phone: 9(163)263-456151 [place] [address] 12-27-2021 18:16-0400 Body temperature 98 [degF] Dr. Neel Turpin Work Phone: 1(002)855-536351 [place] [address] 12-27-2021 18:16-0400 Diastolic blood pressure 90 mm[Hg] Dr. Neel Turpin Work Phone: 2(321)490-854051 [place] [address] 12-27-2021 18:16-0400 Heart rate 102 /min Dr. Neel Turpin Work Phone: 5(216)123-773551 [place] [address] 12-27-2021 18:16-0400 Respiratory rate 16 /min Dr. Neel Turpin Work Phone: 6(979)365-722151 [place] [address] 12-27-2021 18:16-0400 SaO2% (BldA) [Mass fraction] 96 % Dr. Neel Turpin Work Phone: 0(848)753-420351 [place] [address] 12-27-2021 18:16-0400 Systolic blood pressure 136 mm[Hg] Dr. Neel Turpin Work Phone: 4(400)554-911551 [place] [address] 12-27-2021 12:12-0400 Body mass index (BMI) [Ratio] 50.1 kg/m2 Dr. Neel Turpin Work Phone: [facility] 12-27-2021 12:12-0400 Body weight 128.[address] Neel Turpin Work Phone: 1(995)657-950251 [place] [address] 12-22-2021 14:32-0400 Body weight 122.[address] Neel Turpin Work Phone: 4(662)833-434551 [place] [address] 12-22-2021 14:01-0400 Body temperature 98.1 [degF] Dr. Neel Turpin Work Phone: 9(126)603-688051 [place] [address] 12-22-2021 14:01-0400 Diastolic blood pressure 87 mm[Hg] Dr. Neel Turpin Work Phone: 6(978)932-889351 [place] [address] 12-22-2021 14:01-0400 Heart rate 82 /min Dr. Neel Turpin Work Phone: 5(882)948-851551 [place] [address] 12-22-2021 14:01-0400 Respiratory rate 18 /min Dr. Neel Turpin Work Phone: 2(280)775-201051 [place] [address] 12-22-2021 14:01-0400 SaO2% (BldA) [Mass fraction] 93 % Dr. Neel Turpin Work Phone: 9(452)087-292251 [place] [address] 12-22-2021 14:01-0400 Systolic blood pressure 131 mm[Hg] Dr. Neel Turpin Work Phone: 3(306)176-295851 [place] [address] 12-22-2021 12:40-0400 Inhaled oxygen flow rate 2 L/min Dr. Neel Turpin Work Phone: 3(398)971-007951 [place] [address] 12-21-2021 15:47-0400 Body mass index (BMI) [Ratio] 47.7 kg/m2 Dr. Neel Turpin Work Phone: 7(528)332-071351 [place] [address] 12-21-2021 15:05-0400 Body temperature 97.9 [degF] [facility] Work Phone: 12-21-2021 15:05-0400 Diastolic blood pressure 74 mm[Hg] [facility] Work Phone: 12-21-2021 15:05-0400 Heart rate 98 /min [facility] Work Phone: 12-21-2021 15:05-0400 Respiratory rate 20 /min [facility] [facility] Work Phone: 12-21-2021 15:05-0400 SaO2% (BldA) [Mass fraction] 92 % [facility] Work Phone: 12-21-2021 15:05-0400 Systolic blood pressure 136 mm[Hg] [facility] Work Phone: 12-21-2021 11:38-0400 Body height 160.02 cm [facility] Work Phone: 12-21-2021 11:38-0400 Body mass index (BMI) [Ratio] 47.8 kg/m2 [facility] Work Phone: 12-21-2021 11:38-0400 Body weight 122.46 kg [facility] Work Phone: 12-18-2021 19:49-0400 Body temperature 98.1 [degF] Neel Turpin MD Work Phone: [facility] 12-18-2021 19:49-0400 Diastolic blood pressure 66 mm[Hg] Neel Turpin MD Work Phone: [facility] 12-18-2021 19:49-0400 Heart rate 112 /min Neel Turpin MD Work Phone: [facility] 12-18-2021 19:49-0400 Respiratory rate 20 /min Neel Turpin MD Work Phone: [facility] 12-18-2021 19:49-0400 SaO2% (BldA) [Mass fraction] 96 % Neel Turpin MD Work Phone: [facility] 12-18-2021 19:49-0400 Systolic blood pressure 134 mm[Hg] Neel Turpin MD Work Phone: [facility] 12-04-2021 12:55-0400 Body temperature 96.4 [degF] Carissa Lee APRN.TECHNICAL STAFF ENGINEER Work Phone: [facility] 12-04-2021 12:55-0400 Body weight 123.83 kg Carissa Lee APRN.TECHNICAL STAFF ENGINEER Work Phone: [facility] 12-04-2021 12:55-0400 Diastolic blood pressure 94 mm[Hg] Carissa Lee APRN.TECHNICAL STAFF ENGINEER Work Phone: [facility] 12-04-2021 12:55-0400 Heart rate 103 /min Carissa Lee APRN.TECHNICAL STAFF ENGINEER Work Phone: [facility] 12-04-2021 12:55-0400 Respiratory rate 20 /min Carissa Lee APRN.TECHNICAL STAFF ENGINEER Work Phone: [facility] 12-04-2021 12:55-0400 SaO2% (BldA) [Mass fraction] 98 % Carissa Lee APRN.TECHNICAL STAFF ENGINEER Work Phone: [facility] 12-04-2021 12:55-0400 Systolic blood pressure 130 mm[Hg] Carissa Lee APRN.TECHNICAL STAFF ENGINEER Work Phone: [facility] 12-01-2021 09:25-0400 Body temperature 97 [degF] [facility] Work Phone: 12-01-2021 09:25-0400 Diastolic blood pressure 82 mm[Hg] [facility] Work Phone: 12-01-2021 09:25-0400 Heart rate 93 /min [facility] Work Phone: 12-01-2021 09:25-0400 Respiratory rate 16 /min [facility] Work Phone: 12-01-2021 09:25-0400 SaO2% (BldA) [Mass fraction] 98 % [facility] Work Phone: 12-01-2021 09:25-0400 Systolic blood pressure 147 mm[Hg] [facility] Work Phone: 10-06-2021 09:01-0400 Body height 160.02 cm [facility] Work Phone: 10-06-2021 09:01-0400 Body mass index (BMI) [Ratio] 48.3 kg/m2 [facility] Work Phone: 10-06-2021 09:01-0400 Body temperature 96 [degF] [facility] Work Phone: 10-06-2021 09:01-0400 Body weight 123.83 kg [facility] Work Phone: 10-06-2021 09:01-0400 Diastolic blood pressure 76 mm[Hg] [facility] Work Phone: 10-06-2021 09:01-0400 Heart rate 87 /min [facility] Work Phone: 10-06-2021 09:01-0400 Respiratory rate 16 /min [facility] Work Phone: 10-06-2021 09:01-0400 SaO2% (BldA) [Mass fraction] 99 % [facility] Work Phone: 10-06-2021 09:01-0400 Systolic blood pressure 135 mm[Hg] [facility] Work Phone: 08-09-2021 11:06-0400 Body temperature 97.5 [degF] Neel Turpin MD Work Phone: [facility] 08-09-2021 11:06-0400 Body weight 123.83 kg Neel Turpin MD Work Phone: [facility] 08-09-2021 11:06-0400 Diastolic blood pressure 71 mm[Hg] Neel Turpin MD Work Phone: [facility] 08-09-2021 11:06-0400 Heart rate 100 /min Neel Turpin MD Work Phone: [facility] 08-09-2021 11:06-0400 Respiratory rate 16 /min Neel Turpin MD Work Phone: [facility] 08-09-2021 11:06-0400 Systolic blood pressure 131 mm[Hg] Neel Turpin MD Work Phone: [facility] 08-09-2021 09:20-0400 Body height 160.02 cm [facility] Work Phone: 08-09-2021 09:20-0400 Body mass index (BMI) [Ratio] 48.9 kg/m2 [facility] Work Phone: 08-09-2021 09:20-0400 Body temperature 97.5 [degF] [facility] Work Phone: 08-09-2021 09:20-0400 Body weight 125.19 kg [facility] Work Phone: 08-09-2021 09:20-0400 Diastolic blood pressure 63 mm[Hg] [facility] Work Phone: 08-09-2021 09:20-0400 Heart rate 89 /min [facility] Work Phone: 08-09-2021 09:20-0400 Respiratory rate 16 /min [facility] Work Phone: 08-09-2021 09:20-0400 SaO2% (BldA) [Mass fraction] 99 % [facility] Work Phone: 08-09-2021 09:20-0400 Systolic blood pressure 131 mm[Hg] [facility] Work Phone: 07-31-2012 13:16-0400 BP Diastolic 81 mm[Hg] [facility] Work Phone: 07-31-2012 13:16-0400 BP Systolic 129 mm[Hg] [facility] Work [facility]: [...] Neel Turpin MD Work Phone: [facility] [place] Comment on above: Medicare annual well ness visit, subsequent (Primary Dx); DDD (degenerative disc disease), thoracolumbar; Type 2 diabetes mellitus with stage 4 chronic kidney disease, with long-term current use of insulin (HCC); Encounter for screening examination for other mental health and behavioral disorders; Chronic obstructive pulmonary disease, unspecified COPD type ([facility]); Essential hypertension; Mixed hyperlipidemia; Obesity, Class III, BMI 40-49.9 (morbid obesity) ([facility]); Chronic combined systolic and diastolic heart failure ([facility]); Depressive disorder Start: 09-16-2024 End: 09-16-2024 ambulatory NEEL TURPIN Facility:[facility] Start: 09-16-2024 End: 09-16-2024 Patient encounter procedure Tessa Brock [facility] Work Phone: [facility] Comment on above: Type 2 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, with long-term current use of insulin (HCC) (Primary Dx) Start: 09-16-2024 End: 09-16-2024 Telemedicine consultation with patient Tessa Arun [facility] Work Phone: [facility] Start: 09-16-2024 End: 09-16-2024 ambulatory Peewee Louise Facility:[facility] Start: 09-11-2024 End: 09-11-2024 Telephone encounter Nataliia Ortiz MD Work Phone: [facility] [place] Start: 08-31-2024 End: 08-31-2024 Telephone encounter Neel Turpin MD Work Phone: [facility] [place] Comment on above: PT POC Start: 08-19-2024 End: 08-19-2024 ambulatory NEEL TURPIN Facility:[facility] Start: 08-19-2024 End: 08-19-2024 Patient encounter procedure Tessa Brock [facility] Work Phone: [facility] Comment on above: Type 2 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, with long-term current use of insulin (HCC) (Primary Dx) Start: 08-19-2024 End: 08-19-2024 Telemedicine consultation with patient Tessa Brock [facility] Work Phone: [facility] Start: 08-19-2024 End: 08-19-2024 Office outpatient visit 15 minutes Kacy Mary TIRE REPAIRMAN.TECHNICAL STAFF ENGINEER Work Phone: [facility] [place] Comment on above: Bilateral lower extr emity edema (Primary Dx); Chronic combined systolic and diastolic heart failure (HCC); Chronic respiratory failure with hypoxia (HCC) Start: 08-19-2024 End: 08-19-2024 ambulatory KACY MARY Facility:[facility] Start: 08-17-2024 End: 08-17-2024 Telephone encounter Neel Turpin MD Work Phone: [facility] [place] Comment on above: Patient Update Start: 08-12-2024 End: 08-13-2024 Telephone encounter Neel Turpin MD Work Phone: [facility] [place] Comment on above: Patient Update Start: 08-05-2024 End: 08-05-2024 ambulatory KACY MARY Facility:[facility] Start: 07-29-2024 End: 07-29-2024 Telephone encounter Neel Turpin MD Work Phone: [facility] [place] Comment on above: Medication Problem Start: 07-22-2024 End: 07-22-2024 ambulatory Peewee Louise Facility:[facility] Start: 07-18-2024 End: 07-20-2024 Telephone encounter Neel Turpin MD Work Phone: [facility] [place] Comment on above: Medication Problem ( Ozempic) Start: 07-16-2024 ambulatory NEEL Curran lity:[facility] Start: 07-16-2024 End: 07-16-2024 Patient encounter procedure Tessa Brock [facility] Work Phone: [facility] Comment on above: Type 2 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, with long-term current use of insulin (HCC) (Primary Dx) Start: 07-16-2024 End: 07-16-2024 Telemedicine consultation with patient Tessa Brock [facility] Work Phone: [facility] Start: 07-14-2024 End: 07-14-2024 Subsequent hospital visit by physician [place] [id number] Device [facility] 3 Comment on above: 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; Paroxysmal ventricular tachycardia Start: 07-14-2024 End: 07-14-2024 ambulatory [facility] Start: 07-06-2024 End: 07-06-2024 Patient encounter procedure [...] Start: 07-06-2024 End: 07-06-2024 ambulatory KACY MARY Facility:[facility] Start: 06-29-2024 End: 06-29-2024 Telephone encounter Neel Turpin MD Work Phone: [facility] [place] Comment on above: PT POC Start: 06-24-2024 End: 06-24-2024 ambulatory Jayaprakas Aspen Facility:[facility] Start: 06-22-2024 End: 07-01-2024 Telephone encounter Neel Turpin MD Work Phone: [facility] [place] Comment on above: Home Health Orders Start: 06-17-2024 ambulatory Jausamapraheathers Aspen Facil ity:[facility] Start: 05-21-2024 ambulatory Ivon Evon Koram Facility :[facility] Start: 05-21-2024 End: 05-25-2024 Evaluation and management of inpatient Ivon Evon Koram Facility:[facility] Start: 05-20-2024 End: 05-20-2024 ambulatory Jayapras Aspen Facility:[facility] Start: 05-12-2024 End: 05-12-2024 ambulatory Horacio Mollison Facility:[facility] Start: 05-06-2024 End: 05-06-2024 Telephone encounter Tessa Brock [facility] Work Phone: [facility] Comment on above: Missed Appointment Start: 05-02-2024 End: 05-21-2024 Evaluation and management of inpatient Jose Chi Gonzalo Facility:[facility] Start: 04-29-2024 End: 04-29-2024 ambulatory Gregory June Facility:[facility] Start: 04-28-2024 ambulatory Horacio Mollison Facility :[facility] Start: 04-28-2024 End: 05-02-2024 Evaluation and management of inpatient Horacio Mollison Facility:[facility] Start: 04-21-2024 End: 04-21-2024 ambulatory Jacarloss Aspen Facility:[facility] Start: 04-15-2024 End: 04-15-2024 Subsequent hospital visit by physician Santiago [facility] [address] 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; Paroxysmal ventricular tachycardia (Multi) Start: 04-15-2024 End: 04-15-2024 ambulatory [facility] Start: 04-13-2024 End: 04-13-2024 Telephone encounter Tessa Brock [facility] Work Phone: [facility] [place] Comment on above: Medication Problem ( /) Start: 04-08-2024 End: 04-08-2024 ambulatory NEEL Dempsey PAPI Facility:[facility] Start: 04-08-2024 End: 04-08-2024 Patient encounter procedure Tessa Brock [facility] Work Phone: [facility] Comment on above: Type 2 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, with long-term current use of insulin (HCC) (Primary Dx) Start: 04-08-2024 End: 04-08-2024 Telemedicine consultation with patient Tessa Brock [facility] Work Phone: [facility] Start: 04-08-2024 End: 04-08-2024 Telephone encounter Tessa Brock [facility] Work Phone: [facility] Comment on above: Patient Request Appointment Start: 03-30-2024 End: 03-30-2024 Telephone encounter Kacy Mary APRN.CNP Work Phone: [facility] [place] Start: 03-25-2024 End: 03-25-2024 Patient encounter procedure Kacy Mary APRN.JERRY Work Phone: [facility] [place] Comment on above: Type 2 diabetes armin [...] Start: 03-25-2024 End: 03-25-2024 ambulatory KACY MARY Facility:[facility] Start: 03-24-2024 End: 03-24-2024 Office outpatient visit 25 minutes Paula Walter DO Work Phone: [facility] Comment on above: Moderate COPD (chron ic obstructive pulmonary disease) (Multi) (Primary Dx); Dyspnea on exertion; Morbid obesity (Multi) Start: 03-24-2024 End: 03-24-2024 ambulatory [facility] Ambulatory Start: 03-05-2024 End: 03-05-2024 Office outpatient visit 25 minutes Chris Antoine MD Work Phone: [facility] Comment on above: Congestive heart spencer lure, unspecified HF chronicity, unspecified heart failure type (Primary Dx); Hypoxemia Start: 03-05-2024 End: 03-05-2024 ambulatory [facility] Ambulatory Start: 02-28-2024 End: 02-28-2024 ambulatory NEEL Dempsey TURPIN Facility:[facility] Start: 02-28-2024 End: 02-28-2024 Patient encounter procedure Tessa Brock [facility] Work Phone: [facility] Comment on above: Type 2 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, with long-term current use of insulin (HCC) (Primary Dx) Start: 02-28-2024 End: 02-28-2024 Telemedicine consultation with patient Tessa Arun [facility] Work Phone: [facility] Start: 02-26-2024 End: 02-27-2024 Telephone encounter Tessa Arun [facility] Work Phone: [facility] Comment on above: Missed Appointment Start: 02-26-2024 End: 02-26-2024 ambulatory [facility] Facility:[facility] Start: 01-29-2024 End: 01-29-2024 ambulatory [facility] Facility:[facility] Start: 01-20-2024 End: 01-20-2024 ambulatory [facility] Ambulatory Start: 01-15-2024 End: 01-15-2024 Patient encounter procedure Tessa Arun [facility] Work Phone: [facility] Comment on above: Type 2 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, with long-term current use of insulin (HCC) (Primary Dx) Start: 01-15-2024 End: 01-15-2024 Telemedicine consultation with patient Tessa Brock [facility] Work Phone: [facility] Start: 01-15-2024 End: 01-15-2024 Subsequent hospital visit by physician Santiago Crow Device Remote 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; Paroxysmal ventricular tachycardia (Multi) Start: 01-15-2024 End: 01-15-2024 ambulatory [facility] Start: 01-01-2024 End: 01-01-2024 ambulatory [facility] Facility:[facility] Start: 12-09-2023 End: 12-09-2023 ambulatory [facility] Facility:[facility] Start: 12-03-2023 End: 12-05-2023 Refill Neel Turpin MD Work Phone: [facility] [place] Comment on above: Refill Request Start: 11-26-2023 End: 11-26-2023 ambulatory [facility] Start: 11-26-2023 End: 11-26-2023 Subsequent hospital visit by physician Dago Brow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; Paroxysmal ventricular tachycardia (Multi) Start: 11-06-2023 End: 11-06-2023 [facility] Facility:[facility] Start: 10-30-2023 End: 10-30-2023 ambulatory NEEL TURPIN Facility:[facility] Start: 10-30-2023 End: 10-30-2023 Patient encounter procedure Tessa Brock [facility] Work Phone: [facility] Comment on above: Type 2 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, with long-term current use of insulin (HCC) (Primary Dx) Start: 10-30-2023 End: 10-30-2023 Telemedicine consultation with patient Tessa Brock [facility] Work Phone: [facility] Start: 10-22-2023 Refill Neel huang MD Work Phone: [facility] [place] Comment on above: Refill Request Start: 10-16-2023 End: 10-16-2023 ambulatory Annalisa Stephen RN Work Phone: [employer] Start: 10-16-2023 Follow-up encounter Annalisa woodall RN Work Phone: [employer] Comment on above: Community Monitoring Outreach (Follow up ) Start: 10-09-2023 Telephone encounter Neel payne MD Work Phone: [facility] [place] Comment on above: PT Order Start: 10-09-2023 End: 10-09-2023 ambulatory Peewee Aspen Facility:[facility] Start: 09-30-2023 ambulatory Malissa langford RN Work Phone: [employer] Management Start: 09-30-2023 Telephone follow-up Malissa Madison RN Work Phone: [employer] Comment on above: Transition Of Care ( TCM / OON followup ) Initial phone contact for Transitional Care Management Start: 09-23-2023 Telephone encounter Kacy santiago TIRE REPAIRMAN.TECHNICAL STAFF ENGINEER Work Phone: [facility] [place] Comment on above: Results Start: 09-23-2023 End: 09-23-2023 Subsequent hospital visit by physician Iain [facility] Work Phone: Radiology Comment on above: Right hip pain [M25. 551] Start: 09-23-2023 End: 09-23-2023 ambulatory KACY MARY Facility:[facility] Start: 09-23-2023 End: 09-23-2023 Patient encounter procedure Kacy Mary TIRE REPAIRMAN.TECHNICAL STAFF ENGINEER Work Phone: [facility] [place] Comment on above: Medicare annual well ness visit, subsequent (Primary Dx); Depressive disorder; Right hip pain; Fall on hard surface; Type 2 diabetes mellitus with stage 4 chronic kidney disease, with long-term current use of insulin (HCC); DDD (degenerative disc disease), thoracolumbar Start: 09-17-2023 Telephone encounter Neel payne MD Work Phone: [facility] [place] Comment on above: [place] Start: 09-16-2023 End: 09-16-2023 Office outpatient visit 25 minutes Paula Walter DO Work Phone: [facility] Comment on above: History of chronic o bstructive airway disease (Primary Dx); Nocturnal hypoxemia; Dyspnea on exertion; Morbid obesity (Multi) Start: 09-16-2023 End: 09-16-2023 ambulatory [facility] Ambulatory Start: 09-13-2023 Telephone encounter Neel payne MD Work Phone: [facility] [place] Comment on above: Patient Request Start: 09-12-2023 End: 09-12-2023 ambulatory [facility] Ambulatory Start: 09-12-2023 End: 09-12-2023 Office outpatient visit 25 minutes Chris Antoine MD Work Phone: [facility] Comment on above: Congestive heart spencer lure, unspecified HF chronicity, unspecified heart failure type (Multi) (Primary Dx) Start: 09-11-2023 Telephone encounter Neel payne MD Work Phone: [facility] [place] Comment on above: [facility] verbal orders. Start: 09-09-2023 End: 09-11-2023 Evaluation and management of inpatient Tony Menendez MD Work Phone: [facility] 3 Comment on above: Chest pain, unspecif ied type (Primary Dx); Chest pain due to myocardial ischemia, unspecified ischemic chest pain type; Type 2 diabetes mellitus with hyperglycemia, with long-term current use of insulin (Multi); Essential hypertension; Acute coronary microvascular dysfunction (Multi); Chest pain on breathing; Other chest pain; Localized edema; Shortness of breath Start: 09-04-2023 End: 09-04-2023 Patient encounter procedure Tessa Brock [facility] Work Phone: [facility] Comment on above: Type 2 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, with long-term current use of insulin (HCC) (Primary Dx) Start: 09-04-2023 End: 09-04-2023 Telemedicine consultation with patient Tessa Brock [facility] Work Phone: [facility] Start: 09-04-2023 ambulatory [place] Graysophia alegre RN Work Phone: [employer] Head [employer] Comment on above: Community Monitoring Outreach (CDM) Start: 08-27-2023 ambulatory Annalisa Stephen RN Work Phone: [employer] Safety Head Management Start: 08-27-2023 Follow-up encounter Annalisa woodall RN Work Phone: [employer] Management Comment on above: Community Monitoring Outreach (Follow up ) Start: 08-13-2023 ambulatory Annalisa Stephen RN Work Phone: [employer] Safety Head Management Start: 08-13-2023 Follow-up encounter Annalisa woodall RN Work Phone: [employer] [facility] [employer] Comment on above: Community Monitoring Outreach (Follow up ) Start: 07-31-2023 End: 07-31-2023 Patient encounter procedure Tessa Brock [facility] Work Phone: [facility] Comment on above: Type 2 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, with long-term current use of insulin (HCC) (Primary Dx) Start: 07-31-2023 End: 07-31-2023 Telemedicine consultation with patient Tessa Brock [facility] Work Phone: [facility] Start: 07-29-2023 ambulatory Annalisa Stephen RN Work Phone: [employer] Safety Head Management Start: 07-29-2023 Follow-up encounter Annalisa woodall RN Work Phone: [employer] Comment on above: Community Monitoring Outreach (Follow up ) Start: 07-25-2023 ambulatory Annalisa Stephen RN Work Phone: [employer] Safety Head Management Start: 07-25-2023 Follow-up encounter Annalisa woodall RN Work Phone: [employer] Management Comment on above: Community Monitoring Outreach (Follow up ) Start: 07-17-2023 Telephone encounter Neel payne MD Work Phone: [facility] [place] Comment on above: Orders Start: 07-17-2023 End: 07-17-2023 Subsequent hospital visit by physician Santiago [facility] 3 Device Remote [facility] 3 Comment on above: 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; Paroxysmal ventricular tachycardia (Multi) Start: 07-17-2023 End: 07-17-2023 ambulatory [facility] Work Phone: Start: 07-17-2023 End: 07-17-2023 Patient encounter procedure [facility] Work Phone: Start: 07-16-2023 Refill Neel huang MD Work Phone: [facility] [place] Comment on above: Refill Request Start: 07-12-2023 ambulatory Annalisa Stephen RN Work Phone: [employer] Start: 07-12-2023 Follow-up encounter Annalisa woodall RN Work Phone: [employer] Comment on above: Community Monitoring Outreach (Follow up ) Start: 07-10-2023 ambulatory Annalisa Stephen RN Work Phone: [employer] Safety Head Management Start: 07-10-2023 Follow-up encounter Annalisa woodall RN Work Phone: [employer] [facility] [employer] Comment on above: Community Monitoring Outreach (Follow up ) Start: 07-03-2023 End: 07-03-2023 ambulatory Tessa Brock [facility] Work Phone: [facility] Comment on above: Type 2 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, with long-term current use of insulin (HCC) (Primary Dx) Start: 07-03-2023 End: 07-03-2023 Telemedicine consultation with patient Tessa Jaquezcourtney [facility] Work Phone: [facility] Start: 07-03-2023 Telephone encounter Tessa Brock [facility] Work Phone: [facility] Comment on [...] astigmatism, bilateral Start: 06-21-2023 End: 06-21-2023 ambulatory [facility] [facility] Work Phone: Start: 06-21-2023 End: 06-21-2023 Patient encounter procedure [facility] Work Phone: Start: 06-18-2023 ambulatory Annalisa Stephen RN Work Phone: [facility] Start: 06-18-2023 Follow-up encounter Annalisa woodall RN Work Phone: Product Safety Head Management Comment on above: Community Monitoring Outreach (Follow up ) Start: 06-11-2023 ambulatory Annalisa Stephen RN Work Phone: [facility] Start: 06-11-2023 Follow-up encounter Annalisa woodall RN Work Phone: Product Safety Head Management Comment on above: Community Monitoring Outreach (Follow up ) Start: 06-10-2023 Telephone encounter Tessa Brock [facility] Work Phone: [facility] [place] Comment on above: medicaiton problem Start: 06-05-2023 End: 06-05-2023 ambulatory Tessa Brock [facility] Work Phone: [facility] Comment on above: Type 2 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, with long-term current use of insulin (HCC) (Primary Dx) Start: 06-05-2023 End: 06-05-2023 Telemedicine consultation with patient Tessa Brock [facility] Work Phone: [facility]ER[facility] JIMENEZ Start: 06-05-2023 Telephone encounter Tessa Brock [facility] Work Phone: [facility] Comment on above: Medication Update (Holli leondandre) Start: 05-24-2023 End: 05-24-2023 ambulatory [facility] Work Phone: Start: 05-24-2023 End: 05-24-2023 Patient encounter procedure [facility] Work Phone: Start: 05-22-2023 ambulatory Annalisa Stephen RN Work Phone: [facility] [place] Start: 05-22-2023 Follow-up encounter Annalisa woodall RN Work Phone: Product Safety Head Management Comment on above: Community Monitorig Outreach (Follow up ) Start: 05-15-2023 ambulatory Annalisa Stephen RN Work Phone: [facility] [place] Start: 05-15-2023 Follow-up encounter Annalisa woodall RN Work Phone: Product Safety Head Management Comment on above: Community Monitoring Outreach (Follow up ) Start: 05-14-2023 ambulatory Annalisa Stephen RN Work Phone: [facility] [place] Start: 05-14-2023 Follow-up encounter Annalisa woodall RN Work Phone: Product Safety Head Management Comment on above: Community Monitoring Outreach (Follow up ) Start: 05-14-2023 Telephone encounter Tessa Jaquezdarshanchristinederickkim [facility] Work Phone: [facility] Comment on above: Medication Problem Start: 05-14-2023 End: 05-14-2023 Subsequent hospital visit by physician Dago Browne 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; Paroxysmal ventricular tachycardia (CMS/HCC) Start: 05-08-2023 Telephone encounter Tessa Arun [facility] Work Phone: [facility] Comment on above: Medication Update (Holli calvo) Start: 05-08-2023 End: 05-08-2023 ambulatory Tessa Brock [facility] Work Phone: [facility] Comment on above: Type 2 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, with long-term current use of insulin (HCC) (Primary Dx) Start: 05-08-2023 End: 05-08-2023 Telemedicine consultation with patient Tessa Brock [facility] Work Phone: [facility] Start: 05-02-2023 ambulatory Paz dixon RN Work Phone: Product Safety Head Management Comment on above: Community Monitoring Outreach (CDM Enrollment ) Start: 05-01-2023 End: 05-01-2023 Patient encounter procedure Neel Turpin MD Work Phone: [facility] [place] Comment on above: Type 2 diabetes armin [...] Start: 04-26-2023 Chart abstracting Cherie Pascual ( [facility]) [facility] Start: 04-24-2023 End: 04-24-2023 ambulatory [facility] Work Phone: Start: 04-24-2023 End: 04-24-2023 Patient encounter procedure [facility] Work Phone: Start: 04-23-2023 Telephone encounter Neel payne MD Work Phone: [facility] [place] Comment on above: Genetic Testing Form Start: 04-17-2023 End: 04-17-2023 Subsequent hospital visit by physician [place] [id number] Device Remote [facility] 3 Comment on above: 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; Paroxysmal ventricular tachycardia (CMS/HCC) Start: 04-15-2023 End: 04-15-2023 Office outpatient visit 25 minutes Paula Walter DO Work Phone: [facility] Comment on above: Obstructive airway d isease (CMS/HCC) (Primary Dx); Dyspnea on exertion; Nocturnal hypoxemia due to obesity Start: 03-29-2023 End: 03-29-2023 ambulatory [facility] Work Phone: Start: 03-29-2023 End: 03-29-2023 [facility]: Start: 03-01-2023 End: 03-01-2023 ambulatory [facility] Work Phone: Start: 03-01-2023 End: 03-01-2023 Patient encounter [facility] Work Phone: Start: 02-14-2023 [facility] Comment on above: Medication Problem Start: 02-14-2023 End: 02-14-2023 [facility] Comment on above: Type 2 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, with long-term current use of insulin (HCC) (Primary Dx) Start: 02-11-2023 Refill Neel huang MD Work Phone: [facility] [place] Comment on above: Refill Request Start: 01-30-2023 End: 01-30-2023 ambulatory [facility] Work Phone: Start: 01-30-2023 End: 01-30-2023 [facility] encounter [facility] Work Phone: Start: 01-04-2023 End: 01-04-2023 Patient encounter procedure Kacy Berumen APRN.CNP Work Phone: [facility] [place] Comment on above: Type 2 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, with long-term current use of insulin (HCC) (Primary Dx); DDD (degenerative disc disease), thoracolumbar; Depressive disorder; Encounter for immunization Start: 01-04-2023 End: 01-04-2023 ambulatory [facility] Work Phone: Start: 01-04-2023 End: 01-04-2023 [facility] encounter [facility] Work Phone: Start: 12-28-2022 End: 12-28-2022 Office outpatient visit 25 minutes Chris Antoine MD Work Phone: [facility] Comment on above: 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 Chris Antoine Fac ility:[id number] Start: 12-07-2022 End: 12-07-2022 ambulatory [facility] Work Phone: Start: 12-07-2022 End: 12-07-2022 [facility] encounter [facility] Work Phone: Start: 12-07-2022 End: 12-07-2022 Patient encounter procedure Kacy Berumen APRN.TECHNICAL STAFF ENGINEER Work Phone: [facility] [place] Comment on above: Patient left without being seen (Primary Dx) Start: 11-28-2022 Telephone encounter Neel payne MD Work Phone: [facility] [place] Comment on above: Medication clarifica tion Start: 11-21-2022 Refill Neel huang MD Work Phone: [facility] [place] Comment on above: Refill Request Start: 11-07-2022 End: 11-07-2022 ambulatory [facility] Work Phone: Start: 11-07-2022 End: 11-07-2022 [facility] encounter [facility] Work Phone: Start: 11-06-[address] Neel Turpin Facility:[id number] Start: 10-15-2022 Patient encounter procedure Neel Reynoso Papi Work Phone: PN-Sgylfviidw-Xfqzca [address] [place] Work Phone: Start: 10-15-[address] Jesus Narvaez cility:[id number] Start: 10-12-2022 End: 10-12-2022 ambulatory [facility] Work Phone: Start: 10-12-2022 End: 10-12-2022 Patient encounter procedure [facility] Work Phone: Start: 10-11-2022 Nursing evaluation o f patient and report Neel Jessie Turpin Work Phone: UV-Zgcgaawvzy-Cmlqpc d [address] [place] [place] Work Phone: Start: 10-09-[address] Chris Antoine Fac ility:[id number] Start: 10-03-2022 End: 10-04-[address] Claus [...] Body mass index (BMI) 45.0-49.9, adult (CMS/HCC); compensation manager (current) use of insulin (CMS/HCC); Heart failure, unspecified (CMS/HCC); Procedure and treatment not carried out for other reasons Start: 09-14-2022 End: 09-14-2022 Patient encounter procedure [facility] Work Phone: Start: 08-21-2022 Chart abstracting Kacy SERRATO RN.TECHNICAL STAFF ENGINEER Work Phone: [facility] [place] Start: 08-21-[address] Neel Turpin Facility:[id number] Start: 08-15-2022 End: 08-15-2022 ambulatory [facility] Work Phone: Start: 08-15-2022 End: 08-15-2022 Patient encounter procedure Kacy Berumen TIRE REPAIRMAN.TECHNICAL STAFF ENGINEER Work Phone: [facility] [place] Comment on above: Type 2 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, with long-term current use of insulin (HCC) (Primary Dx); Hypertensive heart disease with acute on chronic systolic congestive heart failure (HCC); Depressive disorder; DDD (degenerative disc disease), thoracolumbar Start: 08-14-2022 Office outpatient ne w 30 minutes Neel Turpin Work Phone: [facility] Work Phone: Start: 07-20-2022 End: 07-20-2022 ambulatory [facility] Work Phone: Start: 07-20-2022 End: 07-20-2022 Patient encounter procedure [facility] Start: 07-09-2022 Result Review Neel huang Work Phone: KN-Oiklgpsrkj-Lznjit d [address] Work Phone: Start: 07-09-[address] [id number] Start: 06-27-2022 Office outpatient vi sit 25 minutes Neel Turpin Work Phone: II-Gnjlsmixkb-Ereyfq d [address] Work Phone: Start: 06-22-2022 End: 06-22-2022 [facility] encounter [facility] Start: 06-11-[address] Neel Turpin Facility:[id number] Start: 05-23-2022 End: 05-23-2022 ambulatory [facility] Work Phone: Start: 05-23-2022 End: 05-23-2022 Patient encounter procedure [facility] Start: 05-22-2022 Office outpatient vi sit 25 minutes Neel Turpin Work Phone: [facility] [place] [address] DO Work Phone: Start: 05-14-[address] Neel Turpin Facility:[id number] Start: 04-27-2022 End: 04-27-2022 Patient encounter procedure Neel Turpin MD Work Phone: [facility] [place] Comment on above: DDD (degenerative di sc disease), thoracolumbar (Primary Dx); Other hyperlipidemia; Depressive disorder; Type 2 diabetes mellitus with stage 4 chronic kidney disease, with long-term current use of insulin (HCC); Hyperparathyroidism, secondary renal (HCC); Obesity, Class III, BMI 40-49.9 (morbid obesity) ([facility]) Start: 04-27-2022 End: 04-27-2022 ambulatory [facility] Work Phone: Start: 04-27-2022 End: 04-27-2022 Patient encounter procedure [facility] Out Start: 04-23-2022 Office outpatient vi sit 25 minutes Neel Turpin Work Phone: [facility] 400 DO Work Phone: Start: 04-17-2022 Chart Update Neel huang Work Phone: [facility] 400 DO Work Phone: Start: 04-16-2022 ambulatory Paula Walter Facilit y:[id number] Start: 04-13-[address] Chris Santana ility:[id number] Start: 04-09-2022 Office consultation new/estab patient 80 min Neel Turpin Work Phone: [facility]-P[facility]-[place] 400 DO Work Phone: Start: 03-30-2022 End: 03-30-[address] Neel Turpin Work Phone: [facility] Work Phone: Start: 03-30-2022 End: 03-30-[address] Neel Turpin Work Phone: [facility] Start: 03-28-2022 Office outpatient ne w 45 minutes Neel Turpin Work Phone: QG-Ynnatluzet-Ddbasu d [address] Work Phone: Start: 03-02-2022 Telephone encounter Neel payne MD Work Phone: [facility] [place] Comment on above: Results Start: 03-02-2022 End: 03-02-[address] Neel Turpin Work Phone: [facility] Start: 02-26-2022 Telephone encounter Neel payne MD Work Phone: [facility] [place] Comment on above: plan of care Start: 02-22-2022 End: 02-22-2022 Patient encounter procedure Neel Turpin MD Work Phone: [facility] [place] Comment on above: CKD (chronic kidney disease) stage 4, GFR 15-29 ml/min ([facility]) (Primary Dx); DDD (degenerative disc disease), thoracolumbar; Type 2 diabetes mellitus with stage 4 chronic kidney disease, with long-term current use of insulin (HCC); Anemia due to chronic kidney disease, unspecified CKD stage; Essential hypertension; Mixed hyperlipidemia; Hypertensive heart disease with acute on chronic systolic congestive heart failure (HCC); Hypoxemia Start: 02-21-2022 Telephone encounter Neel payne MD Work Phone: [facility] [place] Comment on above: HH SN POC Start: 02-20-2022 Telephone encounter Neel payne MD Work Phone: [facility] [place] Comment on above: Orders Start: 02-02-2022 End: 02-02-[address] Neel Turpin Work Phone: [facility] Work Phone: Start: 02-02-2022 End: 02-02-[address] Neel Turpin Work Phone: [facility] Start: 01-26-2022 End: 01-26-2022 Emergency department patient visit Dr. Neel Turpin Facility:[id number] Start: 01-26-2022 End: 01-29-2022 Evaluation and management of inpatient Jairon Lopez [facility] 3 Med Surg [place] [id number] 01 Start: 01-25-2022 End: 01-25-2022 ambulatory Issa Tavallaee Facility:[facility] Start: 01-25-2022 End: 01-25-2022 ambulatory MD Issa Bonilla Work Phone: [facility] Work Phone: Start: 01-25-2022 End: 01-25-2022 Departed Referred MD Issa Bonilla Work Phone: [facility] Main [place] Start: 01-22-2022 End: 01-22-2022 ambulatory Issajessie Bonilla Facility:[facility] Start: 01-22-2022 End: 01-22-2022 Departed Referred MD Issa Bonilla Work Phone: [facility] [place] Start: 12-29-2021 End: 12-29-2021 ambulatory No Pcp (Historical) Referring Physician Start: 12-29-2021 Telephone encounter Neel payne MD Work Phone: [facility] [place] Comment on above: Clinical Update Start: 12-29-2021 End: 12-29-[address] Neel Turpin Work Phone: [facility] Out Start: 12-27-2021 Non-patient / Non-visit Dr. Erica Turpin Work Phone: [facility] Phys[facility] Start: 12-26-2021 End: 12-27-2021 Non-patient / Non-visit Dr. Neel Turpin Work Phone: [facility] Start: 12-25-2021 Non-patient / Non-visit Dr. Erica Turpin Work Phone: [facility] Start: 12-25-2021 End: 12-27-2021 Evaluation and management of inpatient Dr. Neel Turpin Work Phone: [facility] Surgical 3 Start: 12-25-2021 Telephone encounter Neel payne MD Work Phone: [facility] [place] Comment on above: Medication Problem Start: 12-22-2021 Telephone encounter Neel payne MD Work Phone: Internal [facility] Comment on above: Orders Start: 12-22-2021 Non-patient / Non-visit Dr. Erica Turpin Work Phone: [facility] Start: 12-21-2021 Non-patient / Non-visit Dr. Erica Turpin Work Phone: [facility] Start: 12-21-2021 End: 12-22-2021 Evaluation and management of inpatient [facility] Surgical 3 Start: 12-21-2021 observation encounter [facility] Work Phone: Start: 12-19-2021 Telephone encounter Kacy Berumen APRN.CNP Work Phone: Internal [facility] Comment on above: Results Start: 12-19-2021 End: 12-19-2021 Subsequent hospital visit by physician [facility] Work Phone: Radiology Comment on above: Acute leg pain, righ t [M79.604] Start: 12-19-2021 End: 12-19-2021 Patient encounter procedure [facility] Start: 12-18-2021 End: 12-18-2021 Patient encounter procedure Neel Turpin MD Work Phone: [facility] [place] Comment on above: Acute leg pain, righ t (Primary Dx); Depressive disorder; DDD (degenerative disc disease), thoracolumbar Start: 12-04-2021 End: 12-04-2021 Patient encounter procedure Carissa Lee TECHNICAL STAFF ENGINEER Work Phone: [place] [facility] Comment on above: Pain of right lower extremity (Primary Dx) Start: 12-01-2021 End: 12-01-2021 Patient encounter procedure [facility] Start: 11-03-2021 End: 11-03-2021 ambulatory [facility] Work Phone: Start: 11-03-2021 End: 11-03-2021 Patient encounter procedure [facility] Start: 10-06-2021 End: 10-06-2021 Patient encounter procedure [facility] Start: 09-08-2021 End: 09-08-2021 Patient encounter procedure [facility] Start: 08-09-2021 End: 08-09-2021 Patient encounter procedure Neel Turpin MD Work Phone: [facility] [place] Comment on above: Essential hypertensi on (Primary Dx); Type 2 diabetes mellitus with stage 4 chronic kidney disease, with long-term current use of insulin (HCC); DDD (degenerative disc disease), thoracolumbar; Mixed hyperlipidemia Start: 07-14-2021 End: 07-14-2021 Patient encounter procedure [facility] Start: 07-06-2021 Telephone encounter Neel payne MD Work Phone: [facility] [place] Comment on above: Lab Orders Start: 06-14-2021 End: 06-14-2021 Patient encounter procedure [facility] Start: 05-17-2021 End: 05-17-2021 Patient encounter procedure [facility] Start: 04-19-2021 End: 04-19-2021 Patient encounter procedure [facility] Start: 03-22-2021 End: 03-22-2021 Patient encounter procedure [facility] Start: 02-22-2021 Patient encounter procedure [facility] Start: 04-12-2020 End: 04-12-[address] Peña Work Phone: [facility] Start: 04-24-2018 End: 04-25-2018 Patient encounter procedure Bernadette Lemon Facility:[facility] Start: 04-15-2018 Patient encounter procedure Itri A Bandar Facility:[place] Start: 04-14-2018 Patient encounter procedure Itri A Bandar Facility:[place] Start: 04-14-2018 End: 04-14-2018 [facility]: [facility] Start: 03-03-2018 End: 03-03-2018 [facility] Work Phone: [facility] Start: 09-27-2011 Evaluation and manag ement of inpatient [facility] Date Procedure Procedure Detail Performing Clinician Start: 09-23-2024 Hemoglobin A1c/Hemoglobin.total in Blood Neel Turpin MD Work Phone: Start: 08-05-2024 Follow-up visit Follow Up [facility]AC[facility] [place] Start: 03-25-2024 Hemoglobin A1c/Hemoglobin.total in Blood Kacy Mary TIRE REPAIRMAN.TECHNICAL STAFF ENGINEER Work Phone: Start: 03-25-2024 [employer] COVI D-19 VACCINE AGE 12+ YR (COMIRNATY) Kacy Mary TIRE REPAIRMAN.TECHNICAL STAFF ENGINEER Work Phone: Start: 11-26-2023 Prgrmg eval implanta ble in prsn dual lead dfb Claus Browne MD Work Phone: Start: 09-23-2023 Radex hip unilateral with pelvis 2-3 views Kacy Mary TIRE REPAIRMAN.TECHNICAL STAFF ENGINEER Work Phone: Start: 09-23-2023 Hemoglobin A1c/Hemoglobin.total in Blood Kacy ReddTyra TIRE REPAIRMAN.TECHNICAL STAFF ENGINEER Work Phone: Start: 09-23-2023 Adult depression scr [...] pane l calcium total Monserrat A RogerNatalie TIRE REPAIRMAN-TECHNICAL STAFF ENGINEER Work Phone: Start: 09-10-2023 Glucose quantitative blood xcpt reagent strip Yrn Hernandez MD Work Phone: Start: 09-10-2023 Glucose quantitative blood xcpt reagent strip Yrn Hernandez MD Work Phone: Start: 09-10-2023 Glucose quantitative blood xcpt reagent strip Yrn Hernandez MD Work Phone: Start: 09-10-2023 Glucose quantitative blood xcpt reagent strip Yrn Hernandez MD Work Phone: Start: 09-10-2023 Pulmonary perfusion imaging particulate Monserrat A Ol-Natalie TIRE REPAIRMAN-TECHNICAL STAFF ENGINEER Work Phone: Start: 09-10-2023 Glucose quantitative blood xcpt reagent strip Yrn Hernandez MD Work Phone: Start: 09-10-2023 End: 09-10-2023 Basic metabolic panel calcium total Monserrat A Ol-Natalie TIRE REPAIRMAN-TECHNICAL STAFF ENGINEER Work Phone: Start: 09-09-2023 Glucose quantitative blood xcpt reagent strip Yrn Hernandez MD Work Phone: Start: 09-09-2023 End: 09-09-2023 Glucose quantitative blood xcpt reagent strip Yrn Hernandez MD Work Phone: Start: 09-09-2023 Dup-scan xtr veins c omplete bilateral study Monserrat Prince TIRE REPAIRMAN-TECHNICAL STAFF ENGINEER Work Phone: Start: 09-09-2023 Cardiac catheterizat ion study Monserrat Prince TIRE REPAIRMAN-TECHNICAL STAFF ENGINEER Work Phone: Start: 09-09-2023 Glucose quantitative blood xcpt reagent strip Yrn Hernandez MD Work Phone: Start: 09-09-2023 Prothrombin time Monserrat Prince TIRE REPAIRMAN-TECHNICAL STAFF ENGINEER Work Phone: Start: 09-09-2023 Assay of troponin quantitative Tony Menendez MD Work Phone: Start: 09-09-2023 Ecg routine ecg w/le ast 12 lds trcg only w/o i&r Tony Menendez MD Work Phone: Start: 09-09-2023 Radiologic exam ches t single view Tony Menendez MD Work Phone: Start: 09-09-2023 Basic metabolic pane l calcium total Tony Menendez MD Work Phone: Start: 09-09-2023 Lipid panel Monserrat Novak TIRE REPAIRMAN-TECHNICAL STAFF ENGINEER Work Phone: Start: 09-09-2023 Troponin I.cardiac p [...] HIGH DOSE, QUADRIVALENT (FLUZONE HIGH-DOSE) Kacy Older TIRE REPAIRMAN.TECHNICAL STAFF ENGINEER Work Phone: Start: 01-04-2023 Hemoglobin A1c/Hemoglobin.total in Blood Kacy Older TIRE REPAIRMAN.TECHNICAL STAFF ENGINEER Work Phone: Start: 12-28-2022 Ecg routine ecg w/le ast 12 lds w/i&r Chris Antoine MD Work Phone: Start: 10-04-2022 Glucose [Mass/volume ] in Serum or Plasma Claus Browne MD Work Phone: Start: 10-04-2022 Echocardiography Whitne y Florencio Diaz [facility] Work Phone: Start: 10-04-2022 CHEST 2 VIEW Aldo Florencio Diaz TIRE REPAIRMAN-[facility] Work Phone: Start: 10-04-2022 Glucose [Mass/volume [...] 08-15-2022 Hemoglobin A1c/Hemoglobin.total in Blood Kacy Older TIRE REPAIRMAN.TECHNICAL STAFF ENGINEER Work Phone: Start: 01-26-2022 End: 01-26-2022 EKG [...] Radiologic exam knee complete 4/more views Neel uTrpin MD Work Phone: Start: 08-09-2021 Hemoglobin A1c/Hemoglobin.total [...] Ligation of varicose vein Vi ctmychal Jessie MarinaTrupin Work Phone: Operative procedure on ankle Neel Jessie Turpin Work Phone: Comment on above: X2; Repair of shoulder Neel Turpin Work Phone: Tonsillectomy Neel huang Work Phone: Ureteroplasty Neel huang Work Phone: Plan of Treatment Date Care Activity Detail Author Start: 09-23-2025 Annual PCP Team Chronic Disease Visit Annual PCP Team Chronic Disease Visit [facility] Start: 09-23-2025 Anxiety Screening Anxiety Screening [facility] Start: 09-23-2025 Covid-19 Vaccine () Covid-19 Vaccine () [facility] Comment on above: Postponed from 09/22/2024 (Declined at t his time) Start: 09-23-2025 Diabetic foot examination Diabetic Foot Exam [facility] Start: 09-23-2025 Medicare Annual Wellness Visit Medicare Annual Wellness Visit [facility] Start: 08-19-2025 Annual PCP Team Chronic Disease Visit Annual PCP Team Chronic Disease Visit [facility] Start: 08-05-2025 Annual PCP Team Chronic Disease Visit Annual PCP Team Chronic Disease Visit [facility] Start: 07-06-2025 Annual PCP Team Chronic Disease Visit Annual PCP Team Chronic Disease Visit [facility] Start: 07-06-2025 BP Controlled (<130/80) BP Controlled (<130/80) [facility] inic Start: 06-17-2025 Creatinine measurement [facility] Start: 06-17-2025 Potassium measurement Potassium Level [facility] Start: 06-10-2025 Complete blood count Hemoglobin/Hematocrit [facility] Start: 03-26-2025 Hemoglobin A1c measurement HbA1C [facility] Start: 03-25-2025 Annual PCP Team Chronic Disease Visit Annual PCP Team Chronic Disease Visit [facility] Start: 01-25-2025 End: 01-25-2025 Patient encounter procedure 01/25/2025 11:20 AM EST Office Visit [facility] [place] [address] [facility] [place] [address] Kacy Mary, TIRE REPAIRMAN.TECHNICAL STAFF ENGINEER [address] [place] [address] 4 mo follow up [facility] [place] Comment on above: 4 mo follow up Start: 12-31-2024 End: 12-31-2024 Patient encounter procedure 12/31/2024 11:00 AM EDT Office Visit [facility] Building [address] [facility] 2nd [place] [address] Claus Browne MD [address] [facility] [address], [address] [id number] [facility] Start: 11-25-2024 Creatinine measurement [facility] Start: 11-25-2024 Potassium measurement Potassium Level [facility] Start: 11-16-2024 Influenza vaccination Influenza Vaccine (#1) [facility] Start: 11-04-2024 End: 11-04-2024 Patient encounter procedure 11/04/2024 3:00 PM EDT [facility] [address] [phone] [facility] [address] [place] [address] DM f/up [facility] Comment on above: DM f/up Start: 10-07-2024 End: 01-06-2025 Lipid 1996 panel - Serum or Plasma LIPID PANEL, FASTING Lab Routine Mixed hyperlipidemia Expected: 10/07/2024, Expires: 01/06/2025 [facility] Work Phone: Comment on above: Expected: 10/07/2024, Expires: Start: 09-23-2024 Medicare Annual Wellness Visit Medicare Annual Wellness Visit (AWV) [facility] Start: 09-23-2024 End: 09-23-2024 Patient encounter procedure 09/23/2024 10:40 AM EDT Office Visit [facility] [place] [address] [place] [address] Neel Turpin MD [address] [place] [address] medicare 6 months [facility] [place] Comment on above: medicare 6 months Start: 09-22-2024 Annual PCP Team Chronic Disease Visit Annual PCP Team Chronic Disease Visit [facility] Start: 09-22-2024 Anxiety Screening Anxiety Screening [facility] Start: 09-22-2024 BP Controlled (<130/80) BP Controlled (<130/80) [facility] in Start: 09-22-2024 Covid-19 Vaccine ( season) Covid-19 Vaccine () [facility] Start: 09-22-2024 Depression Screening Depression Screening [facility] Start: 09-22-2024 Medicare Annual Wellness Visit Medicare Annual Wellness Visit [facility] Start: 09-22-2024 RSV Vaccine (1 - 1-dose 60+ series) RSV Vaccine (1 - 1-dose 60+ series) [facility] Comment on above: Postponed from 2004 (Declined at t his time) Start: 09-22-2024 RSV Vaccine (1 - 1-dose 75+ series) RSV Vaccine (1 - 1-dose 75+ series) [facility] Comment on above: Postponed from 02/05/2019 (Declined at t his time) Start: 09-16-2024 End: 09-16-2024 Patient encounter procedure 09/16/2024 3:00 PM EDT [facility] [address] [phone] Tessa Brock [facility] [address] [place] [address] DM f/up [facility] Comment on above: DM f/up Start: 09-10-2024 Creatinine measurement [facility] Start: 09-10-2024 Potassium measurement Potassium Level [facility] Start: 09-09-2024 Complete blood count Hemoglobin/Hematocrit [facility] Start: 09-09-2024 Creatinine measurement Creatinine Level [facility] Start: 09-09-2024 Potassium measurement Potassium Level [facility] Start: 09-08-2024 Hepatitis B surface antibody level LDL Cholesterol [facility] Start: 09-08-2024 Lipid panel Lipid Panel [facility] Start: 09-02-2024 End: 09-02-2024 Patient encounter procedure 09/02/2024 10:00 AM EDT Office Visit [facility] [address] [place] [phone] Carlos Metcalf, TIRE REPAIRMAN-TECHNICAL STAFF ENGINEER, DNP [address], [address] [place] [address] [facility] Start: 08-19-2024 End: 08-19-2024 Patient encounter procedure [facility] Comment on above: DM f/up weight gain 8 pounds , crackles left lower lung, SPO2 drops with activity (per home health nurse) Start: 08-05-2024 End: 08-05-2024 Patient encounter procedure 08/05/2024 10:20 AM EDT Office Visit [facility] [place] [address] [place] [address] Kacy Mary, TIRE REPAIRMAN.TECHNICAL STAFF ENGINEER [address] [place] [address] 4 week follow up [facility] [place] Comment on above: 4 week follow up Start: 07-16-2024 End: 07-16-2024 Telephone follow-up 07/16/2024 11:00 AM EDT [facility] [address] [place] [address] Tessa Brock, [facility] [address] [place] [address] follow up-phone call [phone] [facility] Comment on above: follow up-phone call [phone] Start: 07-14-2024 End: 07-14-2024 Patient encounter procedure 07/14/2024 10:30 AM EDT Office Visit [facility] [address] [place] [address] Paula Waletr DO [address] [place] [address] [facility] Start: 07-06-2024 End: 07-06-2024 Patient encounter procedure 07/06/2024 8:00 AM EDT Office Visit [facility] [place] [address] [place], [place] [address] Kacy Mary, TIRE REPAIRMAN.TECHNICAL STAFF ENGINEER [address] [place] [address] follow up from [facility] for right leg [facility] [place] Comment on above: follow up from [facility] for right leg Start: 06-25-2024 Glaucoma screening Dilated Retinal Exam [facility] Start: 06-23-2024 Hemoglobin A1c measurement [facility] Start: 06-09-2024 Diabetic foot examination Diabetic Foot Exam [facility] Start: 06-04-2024 End: 06-04-[address] [facility] Start: 05-14-2024 Creatinine measurement [facility] Start: 05-14-2024 Potassium measurement Potassium Level [facility] Start: 05-06-2024 End: 05-06-2024 Patient encounter procedure 05/06/2024 2:00 PM [facility] [address] [phone] Tessa Brock, [facility] [address] [place] [address] DM f/up [facility] Comment on above: DM f/up Start: 05-01-2024 Annual PCP Team Chronic Disease Visit Annual PCP Team Chronic Disease Visit [facility] Start: 05-01-2024 BP Controlled (<130/80) BP Controlled (<130/80) [facility] Start: 05-01-2024 Covid-19 Vaccine ( season) Covid-19 Vaccine () [facility] Comment on above: Postponed from 11/16/2022 (Declined at t his time) Start: 04-08-2024 End: 04-08-2024 Patient encounter procedure 04/08/2024 2:00 PM EST [facility] [address] [phone] [facility] [address], [place] [phone] DM f/up [facility] Comment on above: DM f/up Start: 03-25-2024 End: 06-24-2024 Bacteria identified in Urine by Culture BACTERIAL CULTURE, URINE Microbiology Routine Urinary frequency Expected: 03/25/2024, Expires: 06/24/2024 [facility] Comment on above: Expected: 03/25/2024, Expires: Start: 03-25-2024 Hemoglobin A1c measurement HbA1C [facility] Start: 03-25-2024 End: 06-24-2024 Urinalysis complete panel - Urine URINALYSIS (WITH MICROSCOPIC) WITH CULTURE IF INDICATED Lab Routine Urinary frequency Expected: 03/25/2024, Expires: 06/24/2024 [facility] Work Phone: Comment on above: Expected: 03/25/2024, Expires: 5 Start: 03-25-2024 End: 03-25-2024 Patient encounter procedure 03/25/2024 11:00 AM EST Office Visit [facility] [place] [address] [place] [place] [place] [phone] Kacy Mary, TIRE REPAIRMAN.TECHNICAL STAFF ENGINEER [address] [facility] [place] [phone] 6 month follow up [facility] [place] Comment on above: 6 month follow up Start: 03-23-2024 End: 03-23-2024 Patient encounter procedure 03/23/2024 11:30 AM EST Office Visit [facility] [address] [place] [phone] Paula Walter DO [address] [place] [address] [facility] Start: 03-05-2024 End: 03-05-2024 Patient encounter procedure 03/05/2024 10:45 AM EST Office Visit [facility] Building [address] [place] [phone] Chris Antoine MD [address], [address] [place] [address] [facility] Start: 02-28-2024 End: 05-29-2024 Hemoglobin A1c in Blood HEMOGLOBIN A1C Lab Routine Type 2 diabetes mellitus with stage 4 chronic kidney disease, with long-term current use of insulin (HCC) Expected: 02/28/2024, Expires: 05/29/2024 [facility] Work Phone: Comment on above: Expected: 02/28/2024, Expires: Start: 02-28-2024 End: 02-28-2024 Patient encounter procedure 02/28/2024 10:30 AM EST [facility] [address] [phone] Tessa Brock, [facility] [address], [place] [phone] DM f/up [facility] Comment on above: DM f/up Start: 02-26-2024 End: 02-26-2024 Patient encounter procedure 02/26/2024 2:30 PM EST [facility] [address] [phone] [facility] [address] [place] [address] DM f/up [facility] Comment on above: DM f/up Start: 01-20-2024 End: 01-20-2024 Patient encounter procedure [facility] Start: 01-15-2024 End: 01-15-2024 Patient encounter procedure 01/15/2024 2:00 PM EDT [facility] [address] [phone] [facility] [address] [place] [address] DM f/up [facility] Comment on above: DM f/up Start: 01-05-2024 Annual PCP Team Chronic Disease Visit Annual PCP Team Chronic Disease Visit [facility] Start: 01-05-2024 BP Controlled (<130/80) BP Controlled (<130/80) [facility] in Start: 01-05-2024 Hepatitis B Vaccine (1 of 3 - Risk 3-dose series) Hepatitis B Vaccine (1 of 3 - Risk 3-dose series) [facility] Comment on above: Postponed from 2004 (Declined at t his time) Start: 12-24-2023 Hemoglobin A1c measurement Diabetes: Hemoglobin A1C [facility] Start: 12-13-2023 Creatinine measurement [facility] Start: 12-13-2023 Potassium measurement Potassium Level [facility] Start: 12-13-2023 Serum Creatinine Serum Creatinine [facility] Start: 12-08-2023 Annual PCP Team Chronic Disease Visit Annual PCP Team Chronic Disease Visit [facility] Start: 11-26-2023 End: 11-26-[address] [facility] Start: 11-17-2023 Covid-19 Vaccine () Covid-19 Vaccine () [facility] Start: 11-17-2023 Covid-19 Vaccine () Covid-19 Vaccine ( season) [facility] Start: 11-17-2023 Influenza [facility] Start: 10-30-2023 End: 10-30-2023 Patient encounter procedure 10/30/2023 2:30 PM EDT [facility] [address] [facility] [address] [place] [phone] [facility] [address] [place] [address] DM f/up [facility] Comment on above: DM f/up Start: 10-10-2023 Serum Creatinine Serum Creatinine [facility] Start: 10-05-2023 Echocardiography Echocardiogram [facility] Start: 09-29-2023 Complete blood count Hemoglobin/Hematocrit [facility] Start: 09-23-2023 End: 09-23-2023 Patient encounter procedure [facility] [place] Comment on above: Medicare Wellness w/4 month follow-up Medicare Wellness w/ 4 month follow-up - has been taking water pill more frequently? See care coordination notes Start: 09-16-2023 End: 09-16-2023 Patient encounter procedure 09/16/2023 11:20 AM EDT Office Visit [facility] [address] [place] [phone] Paula Walter DO [address] [place] [address] [facility] Start: 09-12-2023 End: 09-12-2023 Patient encounter procedure 09/12/2023 10:30 AM EDT Office Visit [facility] Building [address] [place] [phone] Chris Antoine MD [address] [place] [address] [facility] Start: 09-04-2023 End: 09-04-2023 Patient encounter procedure 09/04/2023 2:30 PM EDT [facility] [address] [phone] Tessa Brock, [facility] [address] [place] [address] DM f/up [facility] Comment on above: DM f/up Start: 08-30-2023 End: 11-29-2023 ALBUMIN/CREAT RATIO RND UR ALBUMIN/CREAT RATIO RND UR Lab Routine Type 2 diabetes mellitus with stage 4 chronic kidney disease, with long-term current use of insulin (HCC) Expected: 08/30/2023, Expires: 11/29/2023 [facility] Work Phone: Comment on above: Expected: 08/30/2023, Expires: Start: 08-30-2023 End: 11-29-2023 CBC panel - Blood by Automated count CBC Lab Routine CKD (chronic kidney disease) stage 4, GFR 15-29 ml/min (HCC) Expected: 08/30/2023, Expires: 11/29/2023 [facility] Work Phone: Comment on above: Expected: 08/30/2023, Expires: 4 Start: 08-30-2023 End: 11-29-2023 Comprehensive metabolic 2000 panel - Serum or Plasma COMP METABOLIC PANEL Lab Routine Hyperparathyroidism, secondary renal (HCC) Expected: 08/30/2023, Expires: 11/29/2023 [facility] Work Phone: Comment on above: Expected: 08/30/2023, Expires: Start: 08-30-2023 End: 11-29-2023 Hemoglobin A1c in Blood HGB A1C Lab Routine Type 2 diabetes mellitus with stage 4 chronic kidney disease, with long-term current use of insulin (HCC) Expected: 08/30/2023, Expires: 11/29/2023 [facility] Work Phone: Comment on above: Expected: 08/30/2023, Expires: Start: 08-30-2023 End: 11-29-2023 Lipid 1996 panel - Serum or Plasma LIPID PANEL BASIC Lab Routine Type 2 diabetes mellitus with stage 4 chronic kidney disease, with long-term current use of insulin (HCC) Expected: 08/30/2023, Expires: 11/29/2023 [facility] Work Phone: Comment on above: Expected: 08/30/2023, Expires: Start: 08-30-2023 End: 08-30-2023 Patient encounter procedure 08/30/2023 11:20 AM EDT Office Visit [facility] [place] [address] [place], [place] [phone] Neel Turpin MD [address] [place] [address] Medicare Wellness w/4 month follow-up [facility] [place] Comment on above: Medicare Wellness w/4 month follow-up Start: 08-16-2023 ANNUAL PCP TEAM CHRONIC DISEASE VISIT ANNUAL PCP TEAM CHRONIC DISEASE VISIT [facility] Start: 08-16-2023 BP CONTROLLED (<130/80) BP CONTROLLED (<130/80) [facility] Start: 07-31-2023 End: 07-31-2023 Patient encounter procedure 07/31/2023 2:00 PM EDT [facility] [address] [phone] Tessa Brock, [facility] [address] [place] [address] DM f/up [facility] Comment on above: DM f/up Start: 07-30-2023 Hemoglobin A1c measurement [facility] Start: 07-10-2023 SERUM CREATININE SERUM CREATININE [facility] Start: 07-04-2023 End: 07-04-2023 Patient encounter procedure [facility] Start: 05-24-2023 HEMOGLOBIN/HEMATOCRIT HEMOGLOBIN/HEMATOCRIT [facility] Start: 05-14-2023 End: 05-14-[address] [facility] Start: 04-27-2023 ANNUAL PCP TEAM CHRONIC DISEASE VISIT ANNUAL PCP TEAM CHRONIC DISEASE VISIT [facility] Start: 04-27-2023 BP CONTROLLED (<130/80) BP CONTROLLED (<130/80) [facility] in[facility] Start: 04-27-2023 COVID-19 VACCINE (3 - Booster for Moderna series) COVID-19 VACCINE (3 - Booster for Moderna series) [facility] Comment on above: Postponed from 08/26/2020 (Declined at t his time) Start: 04-27-2023 COVID-19 VACCINE (3 - Moderna series) COVID-19 VACCINE (3 - Moderna series) [facility] Comment on above: Postponed from 08/26/2020 (Declined at t his time) Start: 04-15-2023 End: 04-15-2023 Patient encounter procedure 04/15/2023 11:00 AM EST Office Visit [facility] [address] [place] [phone] Paula Walter DO [address] [place] [address] [facility] Start: 04-06-2023 Hemoglobin A1c measurement [facility] Start: 04-06-2023 Hemoglobin A1c/Hemoglobin.total in Blood HbA1C [facility] Start: 03-30-2023 Hepatitis B surface antibody level LDL CHOLESTEROL [facility] Start: 03-18-2023 Advance Directive Discussion Advance Directive Discussion [facility] Start: 03-18-2023 Behavioral Health Screening Behavioral Health Screening [facility] Start: 03-18-2023 Depression Assessment Depression Assessment [facility] Start: 02-22-2023 ANNUAL PCP TEAM CHRONIC DISEASE VISIT ANNUAL PCP TEAM CHRONIC DISEASE VISIT [facility] Start: 01-03-2023 FUV, Provider: Claus Browne, Status: Feliciano, Time: 1:30 PM FUV, Provider: Claus Browne, Status: Feliciano, Time: 1:30 PM [facility] [address] DO Work Phone: Start: 01-03-2023 End: 01-03-2023 Patient encounter procedure 01/03/2023 1:30 PM EDT Office Visit [facility] Building [address] [place] [address] Claus Browne MD [address] [facility] [address], [address] [place], [place] [phone] [facility] Start: 12-28-2022 FUV, Provider: Chris Antoine, Status: Pen, Time: 11:45 AM FUV, Provider: Chris Antoine, Status: Pen, Time: 11:45 AM DC-Prtmzdbehc-Yfyqgl [address] Work Phone: Start: 12-18-2022 3 comp foot exam completed DIABETIC FOOT EXAM [facility] Start: 12-18-2022 ANNUAL PCP TEAM CHRONIC DISEASE VISIT ANNUAL PCP TEAM CHRONIC DISEASE VISIT [facility] Start: 12-18-2022 Diabetic foot examination Diabetic Foot Exam [facility] Start: 12-10-2022 FUV, Provider: Paula Walter, Status: Pen, Time: 11:00 AM FUV, Provider: Paula Walter, Status: Pen, Time: 11:00 AM [facility] Work Phone: Start: 11-30-2022 Glaucoma screening Diabetes: Retinopathy Screening [facility] Start: 11-16-2022 Covid-19 Vaccine ( season) Covid-19 Vaccine ( season) [facility] Start: 11-16-2022 Influenza vaccination [facility] Start: 11-15-2022 Hemoglobin A1c/Hemoglobin.total in Blood HBA1C [facility] Start: 11-06-2022 Patient encounter procedure [id number], Provider: [facility], Status: Pen, Time: 12:30 PM JC[facility]ewkmxih[facility] [address] DO Work Phone: Start: 10-11-2022 NURSEVST, Provider: MILLY CARDIO RN 1,[id number], Status: Pen, Time: 11:00 AM NURSEVST, Provider: MILLY CARDIO RN 1,[id number], Status: Pen, Time: 11:00 AM FV-Mnrykehpyc-FLY [place] [address] DO Work Phone: Start: 10-03-2022 PACEMKR TR, Provider: [facility],MG CARD, Status: Pen, Time: 12:30 PM PACEMKR TR, Provider: [facility],MG CARD, Status: Pen, Time: 12:30 PM RN-Lnsfbaqrhe-NNI [place] [address] DO Work Phone: Start: 08-15-2022 End: 10-15-2022 Hemoglobin A1c in Blood HGB A1C Lab Routine Type 2 diabetes mellitus with stage 4 chronic kidney disease, with long-term current use of insulin (HCC) Expected: 08/15/2022, Expires: 10/15/2022 [facility] Work Phone: Comment on above: Expected: 08/15/2022, Expires: Start: 08-09-2022 ANNUAL PCP TEAM CHRONIC DISEASE VISIT ANNUAL PCP TEAM CHRONIC DISEASE VISIT [facility] Start: 08-06-2022 FUV, Provider: Paula Walter, Status: Pen, Time: 11:00 AM FUV, Provider: Paula Walter, Status: Pen, Time: 11:00 AM ZA-Ovaqisugig-Bnbuxz d [address] Work Phone: Start: 06-27-2022 FUV, Provider: Chris Antoine, Status: Pen, Time: 11:15 AM FUV, Provider: Chris Antoine, Status: Pen, Time: 11:15 AM BT-Irmiwtholz-Mshirk d [address] Work Phone: Start: 05-22-2022 FUV, Provider: Paula Walter, Status: Pen, Time: 11:20 AM FUV, Provider: Paula Walter, Status: Feliciano, Time: 11:20 AM [facility] 400 DO Work Phone: Start: 04-28-2022 Hemoglobin A1c measurement Diabetes: Hemoglobin A1C [facility] Start: 04-23-2022 FUV, Provider: Paula Walter, Status: Pen, Time: 11:00 AM FUV, Provider: Paula Walter, Status: Pen, Time: 11:00 AM MP-Pulmonary Medicine-[place] 400 DO Work Phone: Start: 04-16-2022 ABG, Provider: [facility] RESP NON PFT ROOM,[id number], Status: Pen, Time: 2:00 PM ABG, Provider: [facility] RESP NON PFT ROOM,[id number], Status: Pen, Time: 2:00 PM [facility] 400 DO Work Phone: Start: 04-16-2022 PFT, Provider: [facility] PFT [facility],[id number], Status: Pen, Time: 1:00 PM PFT, Provider: [facility] PFT [facility],[id number], Status: Pen, Time: 1:00 PM [facility] 400 DO Work Phone: Start: 04-09-2022 NPV, Provider: Paula Walter, Status: Pen, Time: 11:00 AM NPV, Provider: Paula Walter, Status: Pen, Time: 11:00 AM FV-Bxjqbimuwy-Xfyvod d [address] Work Phone: Start: 04-05-2022 End: 06-05-2022 ALBUMIN/CREAT RATIO RND UR ALBUMIN/CREAT RATIO RND UR Lab Routine Type 2 diabetes mellitus with stage 4 chronic kidney disease, with long-term current use of insulin (HCC) Expected: 04/05/2022, Expires: 06/05/2022 [facility] Work Phone: Comment on above: Expected: 04/05/2022, Expires: Start: 04-05-2022 ANNUAL PCP TEAM CHRONIC DISEASE VISIT ANNUAL PCP TEAM CHRONIC DISEASE VISIT [facility] Start: 04-05-2022 BP CONTROLLED (<130/80) BP CONTROLLED (<130/80) [facility] Start: 04-05-2022 End: 06-05-2022 CBC panel - Blood by Automated count CBC Lab Routine Anemia due to chronic kidney disease, unspecified CKD stage Expected: 04/05/2022, Expires: 06/05/2022 [facility] Work Phone: Comment on above: Expected: 04/05/2022, Expires: 3 Start: 04-05-2022 End: 06-05-2022 Comprehensive metabolic 2000 panel - Serum or Plasma COMP METABOLIC PANEL Lab Routine Mixed hyperlipidemia Expected: 04/05/2022, Expires: 06/05/2022 [facility] Work Phone: Comment on above: Expected: 04/05/2022, Expires: 3 Start: 04-05-2022 End: 06-05-2022 Hemoglobin A1c in Blood HGB A1C Lab Routine Type 2 diabetes mellitus with stage 4 chronic kidney disease, with long-term current use of insulin (HCC) Expected: 04/05/2022, Expires: 06/05/2022 [facility] Work Phone: Comment on above: Expected: 04/05/2022, Expires: 3 Start: 04-05-2022 End: 06-05-2022 Lipid 1996 panel - Serum or Plasma LIPID PANEL BASIC Lab Routine Mixed hyperlipidemia Expected: 04/05/2022, Expires: 06/05/2022 [facility] Work Phone: Comment on above: Expected: 04/05/2022, Expires: 3 Start: 03-22-2022 HEMOGLOBIN/HEMATOCRIT HEMOGLOBIN/HEMATOCRIT [facility] Start: 03-18-2022 ADVANCE DIRECTIVE DISCUSSION ADVANCE DIRECTIVE DISCUSSION [facility] Start: 03-18-2022 DEPRESSION ASSESSMENT DEPRESSION ASSESSMENT [facility] Start: 02-09-2022 Hemoglobin A1c/Hemoglobin.total in Blood HBA1C [facility] Start: 01-29-2022 End: 01-30-2023 [facility] Comment on above: After each use (each lumen) using push-p ause method. Upon final de-access ing of implanted port. Start: 01-26-2022 End: 01-27-2023 [facility] Comment on above: IF patient HAS a [...] greater. Start: 12-28-2021 SERUM CREATININE SERUM CREATININE [facility] Start: 12-27-2021 Venous catheter care management [facility] Start: 12-27-2021 Flushing of Port-a-cath [facility] Start: 12-27-2021 Patient discharge [facility] Start: 12-26-2021 [facility] Start: 12-25-2021 Assessment of risk of venous thromboembolism [facility] Start: 12-25-2021 Care regimes management [facility] Start: 12-25-2021 Consultation for pain [facility] Start: 12-25-2021 Insertion of catheter into peripheral vein [facility] Start: 12-25-2021 Providing care according to standard [facility] Start: 12-25-2021 Provision of activity privileges [facility] Start: 12-25-2021 Referral to occupational therapist [facility] Start: 12-25-2021 Referral to service [facility] Start: 12-25-2021 [facility] Start: 12-25-2021 Admission procedure [facility] Start: 12-25-2021 Following clinical pathway protocol [facility] Start: 12-25-2021 Patient referral to dietitian [facility] Start: 12-22-2021 Patient discharge [facility] Start: 12-22-2021 Referral to service [facility] Start: 12-22-2021 Consultation [facility] Start: 12-22-2021 Care regimes management [facility] Start: 12-22-2021 Notification of physician [facility] Start: 12-22-2021 [facility] Start: 12-22-2021 Patient referral to dietitian [facility] Start: 12-21-2021 Referral to occupational therapist [facility] Start: 12-21-2021 Referral to service [facility] Start: 12-21-2021 Assessment of risk of venous thromboembolism [facility] Start: 12-21-2021 Notification of physician [facility] Start: 12-21-2021 Provision of activity privileges [facility] Start: 12-21-2021 Vital signs measurements [facility] Start: 12-21-2021 End: 12-21-2021 Following clinical pathway protocol [facility] Start: 12-21-2021 Venous catheter care management [facility] Start: 12-21-2021 End: 12-21-2021 Admission procedure [facility] Start: 12-21-2021 Emergency dept visit high severity&threat funcj [facility] Start: 12-21-2021 Ther proph/dx njx ea seql iv push sbst/drug fac TX/PRO/DX INJ SAME DRUG POSITION CLASSIFICATION SPECIALIST [facility] Start: 12-21-2021 Ther proph/dx njx iv push single/1st sbst/drug THER/PROPH/DIAG INJ IV PUSH [facility] Start: 12-21-2021 Therapeutic injection iv push each new drug TX/PRO/DX INJ NEW DRUG ADDON [facility] Start: 12-21-2021 Therapeutic prophylactic/dx injection subq/im THER/PROPH/DIAG INJ SC/IM [facility] Start: 12-19-2021 End: 02-18-2022 Basic metabolic 2000 panel - Serum or Plasma BASIC METABOLIC PNL Lab Routine Acute leg pain, right Expected: 12/19/2021, Expires: 02/18/2022 [facility] Work Phone: Comment on above: Expected: 12/19/2021, Expires: 2 Start: 12-19-2021 End: 02-18-2022 CBC panel - Blood by Automated count CBC Lab Routine Acute leg pain, right Expected: 12/19/2021, Expires: 02/18/2022 [facility] Work Phone: Comment on above: Expected: 12/19/2021, Expires: 2 Start: 12-19-2021 End: 02-18-2022 Fibrin D-dimer FEU [Mass/volume] in Platelet poor plasma D-DIMER Lab Routine Acute leg pain, right Expected: 12/19/2021, Expires: 02/18/2022 [facility] Work Phone: Comment on above: Expected: 12/19/2021, Expires: 2 Start: 11-30-2021 Glaucoma screening Diabetes: Retinopathy Screening [facility] Start: 11-17-2021 3 comp foot exam completed DIABETIC FOOT EXAM [facility] Start: 11-16-2021 Influenza vaccination INFLUENZA (#1) [facility] Start: 11-09-2021 End: 01-09-2022 Hemoglobin A1c/Hemoglobin.total in Blood HGB A1C Lab Routine Type 2 diabetes mellitus with stage 4 chronic kidney disease, with long-term current use of insulin (HCC) Expected: 11/09/2021, Expires: 01/09/2022 [facility] Work Phone: Comment on above: Expected: 11/09/2021, Expires: 2 Start: 11-09-2021 End: 01-09-2022 LIPID PANEL BASIC LIPID PANEL BASIC Lab Routine Mixed hyperlipidemia Expected: 11/09/2021, Expires: 01/09/2022 [facility] Work Phone: Comment on above: Expected: 11/09/2021, Expires: 2 Start: 08-10-2021 Adult depression screening assessment DEPRESSION SCREENING [facility] Start: 07-13-2021 Hepatitis B surface antibody level LDL CHOLESTEROL [facility] Start: 06-20-2021 Hemoglobin A1c/Hemoglobin.total in Blood HBA1C [facility] Start: 03-18-2021 ADVANCE DIRECTIVE DISCUSSION ADVANCE DIRECTIVE DISCUSSION [facility] Start: 12-01-2020 COVID-19 VACCINE (3 - Booster for Moderna series) COVID-19 VACCINE (3 - Booster for Moderna series) [facility] Start: 10-19-2020 Glaucoma screening Dilated Retinal Exam [facility] Start: 10-19-2020 Hepatitis C antibody, confirmatory test DILATED RETINAL EXAM [facility] Start: 09-21-2020 BP CONTROLLED (<130/80) BP CONTROLLED (<130/80) [facility] Start: 08-26-2020 COVID-19 VACCINE (3 - Booster for Moderna series) COVID-19 VACCINE (3 - Booster for Moderna series) [facility] Start: 08-26-2020 COVID-19 Vaccine (3 - Moderna series) COVID-19 Vaccine (3 - Moderna series) [facility] Start: 02-05-2019 RSV High Risk: (Elderly (60+) or Population) (1 - 1-dose 75+ series) RSV High Risk: (Elderly (60+) or Population) (1 - 1-dose 75+ series) [facility] Start: 02-05-2019 RSV Vaccine (1 - 1-dose 75+ series) RSV Vaccine (1 - 1-dose 75+ series) [facility] Start: 01-28-2018 DTaP/Tdap/Td Vaccines (1 - Tdap) DTaP/Tdap/Td Vaccines (1 - Tdap) [facility] Start: 12-11-2016 End: 12-11-2016 Appointment Appointment [facility] Work Phone: Start: 10-24-2016 End: 10-24-2016 Physical Therapy General [facility], [address] [place] [address], [id number] [facility] Work Phone: Start: 10-24-2016 End: 10-24-2016 Physical Therapy General [facility], [address] [place] [address], [id number] [facility] Work Phone: Start: 10-23-2016 End: 10-23-2016 Radex spine lumbscrl compl w/bending views min 6 X-Ray, Spine, Lumbar, complete with bending views [facility] Work Phone: Start: 10-23-2016 End: 10-23-2016 X-ray exam l-s spine bending X-Ray, Spine, Lumbar, complete with bending views [facility] Work Phone: Start: 2004 Hepatitis B Vaccine (1 of 3 - Risk 3-dose series) Hepatitis B Vaccine (1 of 3 - Risk 3-dose series) [facility] Start: 2004 RSV patients and/or patients aged 60+ years (1 - 1-dose 60+ series) RSV patients and/or patients aged 60+ years (1 - 1-dose 60+ series) [facility] Start: 2004 RSV Vaccine (1 - 1-dose 60+ series) RSV Vaccine (1 - 1-dose 60+ series) [facility] Start: 02-05-1966 DTaP/Tdap/Td Vaccines (1 - Tdap) DTaP/Tdap/Td Vaccines (1 - Tdap) [facility] Start: 02-05-1962 Hepatitis C screening Hepatitis C Screening [facility] Start: 02-05-1954 Diabetic foot examination Diabetes: Foot Exam [facility] Start: 1945 Lipid panel Lipid Panel [facility] Start: 1944 Medicare Annual Wellness Visit Medicare Annual Wellness Visit (AWV) [facility] Start: 1944 Screening for osteoporosis Bone Density Scan [facility] Cardiac Device Check - In Clinic Cardiac Device Check - In Clinic Implantable Cardiac Device Routine 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 Paroxysmal ventricular tachycardia (CMS/HCC) 05/14/2023 12:42 PM EST [facility] Service Area Work Phone: Cardiac Device Check - In Clinic Cardiac Device Check - In Clinic Implantable Cardiac Device Routine 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 Paroxysmal ventricular tachycardia (Multi) 11/26/2023 11:24 AM EDT [facility] Service Area Work Phone: End: 07-17-2023 Cardiac Device Check - Remote [facility] Area Work Phone: Comment on above: Once for 1 Occurrences starting 07/17/19 until 07/17/2023 End: 01-15-2024 Cardiac Device Check - Remote [facility] Area Work Phone: Comment on above: Once for 1 Occurrences starting 01/15/20 until 01/15/2024 End: 04-15-2024 Cardiac Device Check - Remote [facility] Work Phone: Comment on above: Once for 1 Occurrences starting 04/15/19 until 04/15/2024 End: 07-14-2024 Cardiac Device Check - Remote [facility] Work Phone: Comment on above: Once for 1 Occurrences starting 07/15/19 until 07/14/2024 End: 04-17-2023 Cardiac device check - Remote alert [facility] Work Phone: Comment on above: Once for 1 Occurrences starting 04/17/19 until 04/17/2023 End: 09-10-2023 Cobalamin (Vitamin B12) [Mass/volume] in Serum or Plasma [facility] Work Phone: Comment on above: Once (Lab) for 1 Occurrences starting until 09/10/2023 End: 09-09-2023 Determination of physical activity tolerance Cardiac rehab evaluation Card Rehab Routine Once for 1 Occurrences starting 09/09/2023 until 09/09/2023 [facility] Work Phone: Comment on above: Once for 1 Occurrences starting 09/09/19 until 09/09/2023 ECG 12 lead [facility] Work Phone: Electrocardiogram, 12-lead PRN ACS symptoms Electrocardiogram, 12-lead PRN ACS symptoms ECG Routine As needed until discontinued starting 09/09/2023 [facility] Work Phone: Comment on above: As needed until discontinued starting Electrocardiogram, 12-lead PRN ACS symptoms Electrocardiogram, 12-lead PRN ACS symptoms ECG Routine As needed until discontinued starting 09/09/2023 [facility] Work Phone: Comment on above: As needed until discontinued starting End: 10-03-2022 Electrophysiology Electrophysiology Electrophysiology Once for 1 Occurrences starting 10/03/2022 until 10/03/2022 [facility] Work Phone: Comment on above: Once for 1 Occurrences starting 10/04/19 until 10/03/2022 End: 09-12-2023 Glucose [Mass/volume] in Serum or Plasma POCT GLUCOSE Point of Care Testing Routine 4 times daily before meals and at bedtime for 3 Days starting 09/09/2023 until 09/12/2023 [facility] Work Phone: Comment on above: 4 times daily before meals and at bedtim e for 3 Days starting 09/09/2023 until 09/12/2023 Glucose [Mass/volume ] in Serum or Plasma POCT Glucose Point of Care Testing - Docked Device Routine As needed (Lab) until discontinued starting 09/09/2023 [facility] Work Phone: Comment on above: As needed (Lab) until discontinued start ing 09/09/2023 Patient referral [facility] Work Phone: End: 09-09-2023 Pulse oximetry, spot Pulse oximetry, spot Respiratory Care Routine Once for 1 Occurrences starting 09/09/2023 until 09/09/2023 [facility] Work Phone: Comment on above: Once for 1 Occurrences starting 09/09/19 until 09/09/2023 End: 09-09-2023 Respiratory care eval and treat Respiratory care eval and treat Respiratory Care Routine Once for 1 Occurrences starting 09/09/2023 until 09/09/2023 [facility] Service Area Work Phone: Comment on above: Once for 1 Occurrences starting 09/09/19 until 09/09/2023 End: 01-17-2023 XR TIBIA FIBULA 2V AP/LAT RIGHT XR TIBIA FIBULA 2V AP/LAT RIGHT Radiology Routine Acute leg pain, right 1 Occurrences starting 12/18/2021 until 01/17/2023 [facility] Work Phone: Comment on above: 1 Occurrences starting 12/18/2021 until 01/17/2023 XR TIBIA FIBULA 2V A P/LAT RIGHT XR TIBIA FIBULA 2V AP/LAT RIGHT Radiology Routine Acute leg pain, right 12/19/2021 2:30 PM EDT [facility] Work Phone: [facility] Immunizations Immunization Date Immunization Notes Care Provider Solange tipton 03-25-2024 COVID-19 vaccine, ag e 12+ yr (PFIZER-BIONTECH COMIRNATY) Kacy Tyra TIRE REPAIRMAN.TECHNICAL STAFF ENGINEER Work Phone: [facility] 03-25-2024 influenza, high dose seasonal, preservative-free Kacy Tyra TIRE REPAIRMAN.TECHNICAL STAFF ENGINEER Work Phone: [facility] 03-25-2024 influenza virus vaccine, unspecified formulation Tessa Brock [facility] Work Phone: [facility] 01-04-2023 influenza (HD-IIV4) vaccine, age 65+ yr, high dose, quadrivalent, PF (FLUZONE HIGH-DOSE) Kacy Older TIRE REPAIRMAN.TECHNICAL STAFF ENGINEER Work Phone: [facility] 01-04-2023 influenza virus vaccine, unspecified formulation Kacy Older TIRE REPAIRMAN.TECHNICAL STAFF ENGINEER Work Phone: [facility] 12-22-2021 influenza, injectabl e, quadrivalent, preservative free [facility] 12-22-2021 influenza, seasonal, injectable Dr. Neel Turpin Work Phone: [facility] Work Phone: 12-22-2021 influenza virus vaccine, unspecified formulation Neel Turpin MD Work Phone: [facility] 11-17-2020 influenza, high-dose , quadrivalent vaccine (FLUZONE HIGH DOSE QUADRIVALENT) Neel Turpin MD Work Phone: [facility] Work Phone: 07-01-2020 COVID-19 vaccine, fu ll dose (MODERNA) Neel Turpin MD Work Phone: [facility] Work Phone: 06-01-2020 COVID-19 vaccine, fu ll dose (MODERNA) Neel Turpin MD Work Phone: [facility] Work Phone: 12-30-2019 zoster vaccine recombinant Neel Turpin MD Work Phone: [facility] Work Phone: 12-02-2019 influenza, high dose seasonal, preservative-free Neel Turpin MD Work Phone: [facility] Work Phone: 12-02-2019 influenza, injectabl e, quadrivalent, preservative free Chris Antoine MD Work Phone: [facility] Work Phone: 10-07-2019 zoster vaccine recombinant Neel Turpin MD Work Phone: [facility] Work Phone: 12-31-2018 Influenza, injectabl e, [facility] [place] [facility], preservative free, quadrivalent Neel Turpin MD Work Phone: [facility] Work Phone: 12-31-2018 influenza, injectabl e, quadrivalent, contains preservative Neel Turpin MD Work Phone: [facility] Work Phone: 01-27-2018 tetanus immune globulin [facility] Work Phone: 01-01-2018 influenza, high dose seasonal, preservative-free Neel Turpin MD Work Phone: [facility] Work Phone: 01-01-2018 influenza, injectabl e, quadrivalent, preservative free [facility] 01-01-2018 influenza, seasonal, injectable [facility] 01-25-2016 influenza, high dose seasonal, preservative-free Neel Turpin MD Work Phone: [facility] 04-06-2015 pneumococcal conjuga te vaccine, 13 valent Neel Turpin MD Work Phone: [facility] 03-18-2015 pneumococcal conjuga te vaccine, 13 [facility] 01-12-2015 influenza, high dose seasonal, preservative-free Neel Turpin MD Work Phone: [facility] 12-31-2013 influenza, seasonal, injectable Neel Turpin MD Work Phone: [facility] 12-02-2013 pneumococcal polysaccharide vaccine, 23 valent Neel Turpin MD Work Phone: [facility] 11-16-2013 pneumococcal polysaccharide vaccine, 23 [facility] 12-29-2012 influenza virus vaccine, unspecified formulation Neel Turpin MD Work Phone: [facility] 12-24-2012 influenza virus vaccine, whole virus Neel Turpin MD Work Phone: [facility] Work Phone: 01-16-2012 influenza virus vaccine, unspecified formulation Neel Turpin MD Work Phone: [facility] Work Phone: 12-09-2008 influenza virus vaccine, unspecified formulation Neel Turpin MD Work Phone: [facility] 01-09-2008 influenza virus vaccine, whole virus Neel Turpin MD Work Phone: [facility] Work Phone: 02-15-2001 pneumococcal polysaccharide vaccine, 23 valent Neel Turpin MD Work Phone: [facility] Work Phone: Payers Date Payer Category Payer Self-pay [id number] 2021 Medicare supplementa l policy (as second payer) [employer] [id number] 2021 Private Health Insurance [employer] [id number] 2021-Present [phone] [address] [place] [id number] Indemnity [id number] 2021 Private Health Insurance [id number] 2018 Private Health Insurance 2018 Medicare [id number] 2010 Private Health Insurance [id number] 2006 Medicare 2006 Medicare MEDICARE MEDICAR E A AND B [id number] 2006-Present [phone] [place] [address] Medicare [id number] 2006 Medicare [id number] 1944 Unknown [id number] .0.1.725422.3.579 .2.717 1944 Unknown [id number] 2.840.1.937548.3.579 .2.1068 1944 Unknown [id number] 2.840.1.066472.3.579 .2.1068 1944 Unknown [id number] 2.840.1.189559.3.579 .2.106 1944 Unknown [id number] 2.840.1.692983.3.579 .2.1068 1944 Unknown [id number] 2.16.840.1.925844.3.579 .2.1068 1944 Unknown [id number] 2.16.840.1.536535.3.579 .2.1068 1944 Unknown [id number] 2.16.840.1.101486.3.579 .2.1068 1944 Unknown [id number] 2.16.840.1.985422.3.579 .2.1068 1944 Unknown [id number] 2.16.840.1.588468.3.579 .2.1068 1944 Unknown [id number] 2.16.840.1.782508.3.579 .2.1068 1944 Unknown [id number] 2.840.1.495183.3.579 .2.1068 1944 Unknown [id number] 2.16840.1.800587.3.579 .2.6 1944 Unknown [id number] 2.16840.1.505902.3.579 .2.6 1944 Unknown [id number] 2.16840.1.820551.3.579 .2.1242 1944 Unknown [id number] 2.840.1.582621.3.579 .2.1242 1944 Unknown [id number] 2.16.840.1.749525.3.579 .2.1242 1944 Unknown [id number] 2.16.840.1.230525.3.579 .2.1246 1944 Unknown [id number] 2.16.840.1.756767.3.579 .2.7 1944 Unknown [id number] 2.16.840.1.785635.3.579 .2.1246 1944 Unknown [id number] 2.16.840.1.605607.3.579 .2.1247 1944 Unknown [id number] 2..840.1.461215.3.579 .2.1244 1944 Unknown [id number] 2..840.1.117751.3.579 .2.1244 1944 Unknown [id number] 2..840.1.451886.3.579 .2.124 1944 Unknown [id number] 2..840.1.390942.3.579 .2.124 1944 Unknown [id number] 2.840.1.216436.3.579 .2.1244 Unknown [id number] Unknown Unknown [id number] 2.840.1.976737.3.579 .2.531 Unknown [id number] 2.840.1.583330.3.579 .2.531 Unknown [id number] 2.840.1.381249.3.579 .2.462 Unknown [id number] 2.840.1.553276.3.579 .2.462 Unknown [id number] 2.840.1.876041.3.579 .2.462 Unknown [id number] 2..840.1.067191.3.579 .2.462 Unknown [id number] 2..840.1.304799.3.579 .2.462 Unknown [id number] 2..840.1.551221.3.579 .2.462 Unknown [id number] 2.16.840.1.356758.3.579 .2.462 Unknown [id number] 2.16.840.1.837481.3.579 .2.462 Unknown [id number] 2.840.1.065789.3.579 .2.462 Unknown [id number] 2.16.840.1.022184.3.579 .2.462 Unknown [id number] 2.16.840.1.170510.3.579 .2.462 Unknown [id number] 2.16.840.1.391519.3.579 .2.462 Unknown [id number] 2.16.840.1.974581.3.579 .2.462 Unknown [id number] 2.16.840.1.568688.3.579 .2.462 Unknown [id number] 2.16.840.1.376677.3.579 .2.462 Unknown [id number] 2.16.840.1.481552.3.579 .2.462 Unknown [id number] 2.16.840.1.152331.3.579 .2.462 Unknown [id number] 2.16.840.1.143617.3.579 .2.462 Unknown [id number] 2.16.840.1.479793.3.579 .2.462 Unknown [id number] 2.16.840.1.005069.3.579 .2.462 Unknown [id number] 2.16.840.1.361161.3.579 .2.462 Unknown [id number] 2.16.840.1.214792.3.579 .2.462 Unknown [id number] 2.16.840.1.636861.3.579 .2.462 Unknown [id number] 2.16.840.1.325912.3.579 .2.462 Unknown [id number] 2.16.840.1.507755.3.579 .2.462 Unknown [id number] 2.16.840.1.062805.3.579 .2.462 Unknown [id number] 2.16.840.1.310574.3.579 .2.462 Unknown [id number] 2.16.840.1.409318.3.579 .2.462 Unknown [id number] 2.16.840.1.087513.3.579 .2.462 Unknown [id number] 2.16.840.1.319981.3.579 .2.462 Unknown [id number] 2.16.840.1.235023.3.579 .2.462 Unknown [id number] 2.16.840.1.646996.3.579 .2.462 Social History Date Type Detail Facility Tobacco smoking status NHIS Unknown if ever smoked [facility] Start: 1945 Sex Assigned At Not on file [facility] Start: 02-26-2018 End: 12-25-2021 Tobacco smoking status NHIS Unknown if ever smoked [facility] Start: 07-12-2020 None [facility] Start: 07-12-2020 Alone [facility] Start: 07-12-2020 Non-smoker [facility] Start: 1945 Sex Assigned At Female F [facility] Start: 12-04-2021 End: 12-28-2022 Tobacco smoking status NHIS Never smoked tobacco [facility] Work Phone: Start: 04-05-2021 End: 09-23-2024 Alcohol intake Current non-drinker of alcohol (finding) [facility] Start: 07-30-2021 End: 03-24-2024 Exposure to SARS-CoV-2 (event) Not sure [facility] Work Phone: Start: 12-04-2021 End: 12-28-2022 Tobacco use and exposure Smokeless tobacco non-user [facility] Start: 12-10-2021 End: 12-20-2021 Exposure to SARS-CoV-2 (event) Unable to assess [facility] Work Phone: Start: 08-15-2022 End: 12-07-2022 No alcohol use No alcohol use [facility] Work Phone: Start: 08-15-2022 End: 12-07-2022 Tobacco use panel [facility] Work Phone: Adult Depression Screening Assessment 4 [facility] Work Phone: History of tobacco use Passive smoker [facility] Work Phone: Start: 12-28-2022 End: 03-24-2024 Alcohol intake Lifetime non-drinker (finding) [facility] Work Phone: (I/We) worried whether (my/our) food would run out before (I/we) got money to buy more. Never true [facility] Work Phone: How often to you hav e a drink containing alcohol? Never [facility] In the past 12 months, was there a time when you were not able to pay the mortgage or rent on time? No [facility] Work Phone: NEGATED: Highlighted row [facility] Medical Equipment Procedure Code Equipment Code [...] ORIF, ankle STEEL,SURGICAL [id number] FDA Start: 02-04-2018 [id number], [id number], [id number], [id number], [id number], [id number] Start: 12-27-2006 End: 10-22-2023 Comment on above: [...] 25 11:00 AM EDT Neel Turpin MD [facility] 12-27-2021 Functional status Ambulates;Bedside [facility] Work Phone: 12-26-2021 Functional status Rolling Walker [facility] Work Phone: 12-22-2021 Functional status Ambulates;Bedside [facility] Work Phone: 10-07-2014 Are you deaf, or do you have serious difficulty hearing No 10/07/2014 1:44 PM EDT Danuta Green Ma [facility] 10-07-2014 Are you blind, or do you have serious difficulty seeing, even when wearing glasses No 10/07/2014 1:44 PM EDT Danuta Green Ma No [facility] 10-07-2014 Do you have serious difficulty walking or climbing stairs No 10/07/2014 1:44 PM EDT Danuta Green Ma No [facility] 10-07-2014 Do you have difficul ty dressing or bathing No 10/07/2014 1:44 PM EDT Danuta Green Ma No [facility] 10-07-2014 Because of a physica l, mental, or emotional condition, do you have difficulty doing errands alone such as visiting a physician's office or shopping No 10/07/2014 1:44 PM EDT Danuta Green Ma No [facility] Functional observable [facility] Mental Status Date Assessment Result Facility 07-17-2023 Cognitive function Voice/Name [facility] Work Phone: 04-27-2022 Cognitive function Voice/Name [facility] Work Phone: 03-02-2022 Cognitive function Voice/Name [facility] Work Phone: 01-29-2022 Cognitive functi ons [id number] [facility] 12-29-2021 Cognitive function Voice/Name [facility] Work Phone: 12-27-2021 Cognitive function Voice/Name [facility] Work Phone: 12-27-2021 Cognitive function Appropriate;Cooperativ e [facility] Work Phone: 12-22-2021 Cognitive function Voice/Name [facility] Work Phone: 12-01-2021 Cognitive function Awake;Alert;A ppropriate; Follows Commands [facility] Work Phone: 08-09-2021 Cognitive function Awake;Alert;A ppropriate; Follows Commands [facility] Work Phone: 10-07-2014 Because of a physica l, mental, or emotional condition, do you have serious difficulty concentrating, remembering, or making decisions No 10/07/2014 1:44 PM EDT Peter Oseguera, Danuta Mann No [facility] Clinical Notes 10-24-2017 to 09-23-2024 Patient InstructionsNeel [...] review all the medicines you take, even ueya-ebd-vzdoias medicines. As you get older, the way [...] certain medical conditions. documented in this encounter [facility] 09-23-2024 History of Present illness Narrative This note was created using [employer]. 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 For cholesterol. Insulin [place], Disposable, 29 gauge x 1/2 Use once daily as directed. Dx E11.29 empagliflozin (JARDIANCE) 10 mg tablet Take 1 tablet by mouth once daily. Prescribed by inspector fabric calcitriol (ROCALTROL) 0.5 mcg capsule Take 0.5 [...] once daily. Per Dr. Yulia Antoine, cardiology. ejmiehrlvld-qykbgecpk-brxthqox (TRELEGY ELLIPTA) 100-62.5-25 mcg inhalation powder Inhale 1 Puff as instructed once daily. docusate sodium (COLACE) 100 mg capsule Take 1 capsule by mouth as needed. melatonin 5 mg tablet Take 2 tablets by mouth. senna (SENOKOT) 8.6 mg tab Take 1 tablet by mouth as needed. Vit C-Vit R-Tjdkai-UaTi-Lutein (PRESERVISION LUTEIN) 226 mg-200 unit -5 mg-0.8 mg cap Take 1 capsule by mouth once daily. blood sugar diagnostic ([employer] ULTRA TEST) test strip Test blood sugar(s) [...] Brock RPh as Pharmacist (Pharmacy) Kacy Mary APRN.TECHNICAL STAFF ENGINEER as President Sales And Marketing (Internal Medicine) Kang Vickers (Optometry) Outside specialists seen: Denise Louise MD (Nephrology) Chris Antoine MD ([facility] Cardiology) Paula Walter MD ([facility] Pulmonary) JEAN-PAUL Hicks (Podiatry [facility]) DME O2 supplier. [facility]. Medical/Family history review Reviewed and updated problem [...] BMI 53.56 kg/(m^2) documented in this encounter [facility] 09-16-2024 History of Present illness Narrative Primary [...] bedtime. For cholesterol. 90 tablet 3 Insulin [place], Disposable, 29 gauge x 1/2 Use once daily as directed. Dx E11.29 100 Each 4 empagliflozin (JARDIANCE) 10 mg tablet Take 1 tablet by mouth once daily. Prescribed by inspector fabric calcitriol (ROCALTROL) 0.5 mcg capsule Take 0.5 [...] once daily. Per Dr. Yulia Antoine, cardiology. pcmfpubtibc-pckhqvrjn-plifppsr (TRELEGY ELLIPTA) 100-62.5-25 mcg inhalation powder Inhale 1 Puff as instructed once daily. docusate sodium (COLACE) 100 mg capsule Take 1 capsule by mouth as needed. melatonin 5 mg tablet Take 2 tablets by mouth. senna (SENOKOT) 8.6 mg tab Take 1 tablet by mouth as needed. Vit C-Vit H-Mzxcqr-PrHf-Lutein (PRESERVISION LUTEIN) 226 mg-200 unit -5 mg-0.8 [...] Tessa Brock, PharmD, BCACP Primary Care Clinical [employer] documented in this encounter [facility] 09-16-2024 Note HNO ID: [id number] Author: ?, ?, ? Service: ? Author [...] bedtime. For cholesterol. 90 tablet 3 Insulin [place], Disposable, 29 gauge x 1/2 Use once daily as directed. Dx E11.29 100 Each 4 empagliflozin (JARDIANCE) 10 mg tablet Take 1 tablet by mouth once daily. Prescribed by inspector fabric calcitriol (ROCALTROL) 0.5 mcg capsule Take 0.5 [...] once daily. Per Dr. Yulia Antoine, cardiology. nynhnmjfqxx-tondnculk-mmcfxngz (TRELEGY ELLIPTA) 100-62.5-25 mcg inhalation powder Inhale 1 Puff as instructed once daily. docusate sodium (COLACE) 100 mg capsule Take 1 capsule by mouth as needed. melatonin 5 mg tablet Take 2 tablets by mouth. senna (SENOKOT) 8.6 mg tab Take 1 tablet by mouth as needed. Vit C-Vit R-Ucbqrf-UiHs-Lutein (PRESERVISION LUTEIN) 226 mg-200 unit -5 mg-0.8 [...] Lab Results Component (more content not included)... [facility] 09-16-2024 Note HNO ID: [id number] Author: TESSA BROCK RPh Service: ? Author Type: Pharmacist Type: Progress Notes Filed: 09/16/2024 16:19 Note Text: Patient interviewed with the student. Arnold elements of history confirmed. Agree with findings and plan as outlined by the student. My additions to the progress note are underlined. Tessa Brock, PharmD, BCACP Primary Care Clinical [employer] [facility] 09-11-2024 Telephone encounter Note Called by nurse Ugarte, about increasing weight, no CP or Shortness of Breath from baseline I asked to increase the lasix from 20 mg to 40 mgs for 3 days. Nataliia Velasquez MD [facility] Work Phone: 09-11-2024 Miscellaneous Notes Called by nurse Ugarte, about increasing weight, no CP or Shortness of Breath from baseline I asked to increase the lasix from 20 mg to 40 mgs for 3 days. RegardsNataliia MD documented in this encounter [facility] 08-31-2024 Telephone encounter Note Taylor with [facility] calls to report PT will see pt once a week for 8 more weeks for mobility. Carole Lundy LPN [facility] 08-31-2024 Miscellaneous Notes Taylor with [facility] calls to report PT will see pt once a week for 8 more weeks for mobility. Carole Lundy LPN documented in this encounter [facility] 08-19-2024 History of Present illness Narrative Primary [...] bedtime. For cholesterol. 90 tablet 3 Insulin [place], Disposable, 29 gauge x 1/2 Use once daily as directed. Dx E11.29 100 Each 4 empagliflozin (JARDIANCE) 10 mg tablet Take 1 tablet by mouth once daily. Prescribed by inspector fabric calcitriol (ROCALTROL) 0.5 mcg capsule Take 0.5 [...] once daily. Per Dr. Yulia Antoine, cardiology. nbcraenlnjp-nmozruplc-jqklgqja (TRELEGY ELLIPTA) 100-62.5-25 mcg inhalation powder Inhale 1 Puff as instructed once daily. docusate sodium (COLACE) 100 mg capsule Take 1 capsule by mouth as needed. melatonin 5 mg tablet Take 2 tablets by mouth. senna (SENOKOT) 8.6 mg tab Take 1 tablet by mouth as needed. Vit C-Vit V-Eucmay-BrGr-Lutein (PRESERVISION LUTEIN) 226 mg-200 unit -5 mg-0.8 mg cap Take 1 capsule by mouth once daily. blood sugar diagnostic (Par[employer] CornerTOUCH ULTRA TEST) test strip Test blood sugar(s) [...] Tessa Brock, PharmD, BCACP Primary Care Clinical [employer] documented in this encounter [facility] 08-19-2024 Note HNO ID: [id number] Author: TESSA BROCK RPh Service: ? Author [...] bedtime. For cholesterol. 90 tablet 3 Insulin [place], Disposable, 29 gauge x 1/2 Use once daily as directed. Dx E11.29 100 Each 4 empagliflozin (JARDIANCE) 10 mg tablet Take 1 tablet by mouth once daily. Prescribed by inspector fabric calcitriol (ROCALTROL) 0.5 mcg capsule Take 0.5 [...] once daily. Per Dr. Yulia Antoine, cardiology. fbkylxrnvdn-rpbsgrefr-thyyczli (TRELEGY ELLIPTA) 100-62.5-25 mcg inhalation powder Inhale 1 Puff as instructed once daily. docusate sodium (COLACE) 100 mg capsule Take 1 capsule by mouth as needed. melatonin 5 mg tablet Take 2 tablets by mouth. senna (SENOKOT) 8.6 mg tab Take 1 tablet by mouth as needed. Vit C-Vit I-Sdfezr-CzWs-Lutein (PRESERVISION LUTEIN) 226 mg-200 unit -5 mg-0.8 mg cap Take 1 capsule by mouth once daily. blood sugar diagnostic (Paradise CornerTOUCH ULTRA TEST) test strip Test blood sugar(s) [...] LDL 50 03 (more content not included)... [facility] 08-19-2024 Note HNO ID: [id number] Author: KACY MARY APRN.TECHNICAL STAFF ENGINEER Service: ? Author Type: Nurse Practitioner Type: Progress Notes Filed: 08/19/2024 09:52 Note Text: CC: Patient presents with: Shortness of Breath: When ambulating HPI Recording using ambient [employer] software for draft documentation of the visit was discussed with the patient/authorized computer help desk representative; all questions welcomed and answered. Patient/authorized computer help desk representative agreed to proceed Val is an [...] activities like walking to the car. - Bindery Supervisor is attempting to wean Val off oxygen. - Denies orthopnea, paroxysmal nocturnal dyspnea, chest pain, palpitations, fever, chills, cough, or wheezing. CHF: - Baseline Lasix dosage is 20 mg daily. - Scheduled to see inspector fabric on the . Review of Systems Constitutional: [...] EXTRACTION HX 2016 both eyes catacts removed, [facility] CHOLECYSTECTOMY 1970 COLONOSCOPY FLX DX [...] ALLERGIES Rybelsus [Semaglutid (more content not included)... [facility] 08-19-2024 History of Present illness Narrative CC: Patient presents with: Shortness of Breath: When ambulating HPI Recording using ambient [employer] software for draft documentation of the visit was discussed with the patient/authorized computer help desk representative; all questions welcomed and answered. Patient/authorized computer help desk representative agreed to proceed Val is an [...] activities like walking to the car. - Bindery Supervisor is attempting to wean Val off oxygen. - Denies orthopnea, paroxysmal nocturnal dyspnea, chest pain, palpitations, fever, chills, cough, or wheezing. CHF: - Baseline Lasix dosage is 20 mg daily. - Scheduled to see inspector fabric on the . Review of Systems Constitutional: [...] EXTRACTION HX 2016 both eyes catacts removed, [facility] CHOLECYSTECTOMY 1970 COLONOSCOPY FLX DX [...] mouth daily at bedtime. For cholesterol. Insulin [place], Disposable, 29 gauge x 1/2 Use once daily as directed. Dx E11.29 empagliflozin (JARDIANCE) 10 mg tablet Take 1 tablet by mouth once daily. Prescribed by inspector fabric calcitriol (ROCALTROL) 0.5 mcg capsule Take 0.5 [...] once daily. Per Dr. Yulia Antoine, cardiology. rwxvmxlqvms-kpthvxtch-xtvnipvk (TRELEGY ELLIPTA) 100-62.5-25 mcg inhalation powder Inhale 1 Puff as instructed once daily. docusate sodium (COLACE) 100 mg capsule Take 1 capsule by mouth as needed. melatonin 5 mg tablet Take 2 tablets by mouth. senna (SENOKOT) 8.6 mg tab Take 1 tablet by mouth as needed. Vit C-Vit O-Gitlxo-IlMq-Lutein (PRESERVISION LUTEIN) 226 mg-200 unit -5 mg-0.8 mg cap Take 1 capsule by mouth once daily. blood sugar diagnostic (Paradise CornerTOUCH ULTRA TEST) test strip Test blood sugar(s) [...] supplemental oxygen at night and prn. - Bindery Supervisor is attempting to wean off oxygen therapy. - No wheezing, fever, chills, or cough reported. - Pulse oximetry at 94%, consistent with baseline. - Continue current oxygen use as needed. I spent a total of 20 minutes on the date of the service which included preparing to see the patient, difn-cp-nkus patient care, completing clinical documentation, performing a medically appropriate examination, and counseling and educating the patient/family/caregiver. Prescription instructions reviewed with patient as applicable. Potential red flag symptoms discussed with the patient. Reviewed appropriate action plan to take if red flag symptoms occur. Patient agreeable to treatment plan. Kacy Mary APRN.CNP documented in this encounter [facility] 08-19-2024 Instructions Kacy Mary APRN.JERRY - 08/19/2024 [...] new concerning symptoms. documented in this encounter [facility] 08-17-2024 Telephone encounter Note Left message on identified vm for [facility]el[facility], with below recommendation. Spoke to Val, given below recommendation, she verbalized understanding. Jesenia Glasgow LPN [facility] 08-17-2024 Miscellaneous Notes Left message on identified vm for [facility], with below recommendation. Spoke to Val, given below recommendation, she verbalized understanding. Jesenia Glasgow LPN Take furosemide 60 mg total (3 tablets) today and tomorrow. Appointment August 19 for reassessment as scheduled. Shanel from [facility] calling patient weight today is 267.5 [...] has appt at 9 am Saturday at [facility] for lab work, scheduled appt with Kacy Mary OEM SALES MANAGER at 940 am to follow up with weight gain and lung sounds. documented in this encounter [facility] 08-17-2024 Telephone encounter Note Take furosemide 60 mg total (3 tablets) today and tomorrow. Appointment August 19 for reassessment as scheduled. [facility] 08-17-2024 Telephone encounter Note Shanel from [facility] calling patient weight today is 267.5 pounds. [...] has appt at 9 am Saturday at [facility] for lab work, scheduled appt with Kacy Mary NP at 940 am to follow up with weight gain and lung sounds. [facility] 08-13-2024 Telephone encounter Note Lata/Nurse notified, she read back order. Jesenia Glasgow LPN [facility] 08-13-2024 Miscellaneous Notes Lata/Nurse notified, she read back order. Jesenia Glasgow LPN Increase furosemide to 40 mg daily for 3 days, then resume 20 mg daily. Lata Nurse with [facility] calling to report patient has had an 8 pound weight gain in 1 week. Reports no increased swelling-remains with 1+ pitting lower extremity edema. No SOB or breathing difficulties. Reports her vitals are stable and lung sounds are clear. Pt sees Cardiology on 09/02/24. No call back needed to Lata unless PCP has advise/orders. Elizabeth Obando RN documented in this encounter [facility] 08-12-2024 Telephone encounter Note Increase furosemide to 40 mg daily for 3 days, then resume 20 mg daily. [facility] 08-12-2024 Telephone encounter Note Lata, Nurse with [facility] calling to report patient has had an 8 pound weight gain in 1 week. Reports no increased swelling-remains with 1+ pitting lower extremity edema. No SOB or breathing difficulties. Reports her vitals are stable and lung sounds are clear. Pt sees Cardiology on 09/02/24. No call back needed to Lata unless PCP has advise/orders. Elizabeth Obando RN [facility] 08-05-2024 Note HNO ID: [id number] Author: KACY MARY APRN.TECHNICAL STAFF ENGINEER Service: ? Author Type: Nurse Practitioner Type: Progress Notes Filed: 08/05/2024 11:55 Note Text: CC: Patient presents with: Follow Up: 4 weeks HPI Recording using [employer] software for draft documentation of the visit was discussed with the patient/authorized computer help desk representative; all questions welcomed and answered. Patient/authorized computer help desk representative agreed to proceed Val is a [...] EXTRACTION HX 2015 both eyes catacts removed, [facility] CHOLECYSTECTOMY 1970 COLONOSCOPY FLX DX [...] REVJ TOT KN (more content not included)... [facility] 07-29-2024 Telephone encounter Note Below response left on identified vm. Jesenia Glasgow LPN [facility] 07-29-2024 Miscellaneous Notes Below response left on identified vm. Jesenia Glasgow LPN Discontinue Xarelto 10 mg daily. Shanel from [facility] calls with Medication clarification on Xarelto. Patient has not been taking medication. Patient was given 26 tablets at discharge from [facility] on 05/25/2024. Medication was for DVT prophylactic. Shanel calling to see if medication can be discontinued from medication list. Please review and advise, Can leave a detailed message. Irene Paredes RN documented in this encounter [facility] 07-29-2024 Telephone encounter Note Discontinue Xarelto 10 mg daily. [facility] 07-29-2024 Telephone encounter Note Shanel from [facility] calls with Medication clarification on Xarelto. Patient has not been taking medication. Patient was given 26 tablets at discharge from [facility] on 05/25/2024. Medication was for DVT prophylactic. Shanel calling to see if medication can be discontinued from medication list. Please review and advise, Can leave a detailed message. Irene Paredes RN [facility] 07-20-2024 Telephone encounter Note Called and spoke with patient. States she received a letter from [employer] regarding cost/unable to get the weekly shots. States she discussed with her son about waiting to start her Mounjaro until after her next lab results. Reports the following BG readings in the mornin, 120, 130. Discussed Mounjaro was sent to [facility] Home Delivery as discussed last week and appears to have $0 copay. Patient states she still has 3 doses of Mounjaro 2.5mg at home. States she would like to wait to resume until after labs done this week and will contact PharmD after labs once deciding on resuming Mounjaro. Tessa Brock PharmD, JEFERSON Primary Care Clinical [employer] [facility] Work Phone: 07-20-2024 Miscellaneous Notes Called and spoke with patient. States she received a letter from [employer] regarding cost/unable to get the weekly shots. States she discussed with her son about waiting to start her Mounjaro until after her next lab results. Reports the following BG readings in the mornin, 120, 130. Discussed Mounjaro was sent to [facility] Home Delivery as discussed last week and appears to have $0 copay. Patient states she still has 3 doses of Mounjaro 2.5mg at home. States she would like to wait to resume until after labs done this week and will contact PharmD after labs once deciding on resuming Mounjaro. Tessa Brock PharmD, JEFERSON Primary Care Clinical [employer] Val is calling Tessa Brock RPh today with concern regarding Medication Problem (Ozempic) Patient has cost concerns about the medication and does not want it sent to the pharmacy. Please call her to discuss [phone] Patient has been identified by name and birthdate. Duration of symptoms: N/A Person calling: self Call patient at: at home [phone] (home) [phone] (cell) Was an appointment scheduled: No Closing statement: Marly Buck documented in this encounter [facility] 07-18-2024 Telephone encounter Note Val is calling Tessa Brock RPh today with concern regarding Medication Problem (Ozempic) Patient has cost concerns about the medication and does not want it sent to the pharmacy. Please call her to discuss [phone] Patient has been identified by name and birthdate. Duration of symptoms: N/A Person calling: self Call patient at: at home [phone] (home) [phone] (cell) Was an appointment scheduled: No Closing statement: Marly Buck [facility] Work Phone: 07-16-2024 History of Present illness [...] while she was in the hospital and [facility] and wasn't able to continue while in [...] bedtime. For cholesterol. 90 tablet 3 Insulin [place], Disposable, 29 gauge x 1/2 Use once daily as directed. Dx E11.29 100 Each 4 empagliflozin (JARDIANCE) 10 mg tablet Take 1 tablet by mouth once daily. Prescribed by inspector fabric calcitriol (ROCALTROL) 0.5 mcg capsule Take 0.5 [...] once daily. Per Dr. Yulia Antoine, cardiology. arvjjtlkrkj-dxbundcsw-jokzvzks (TRELEGY ELLIPTA) 100-62.5-25 mcg inhalation powder Inhale 1 Puff as instructed once daily. docusate sodium (COLACE) 100 mg capsule Take 1 capsule by mouth as needed. melatonin 5 mg tablet Take 2 tablets by mouth. senna (SENOKOT) 8.6 mg tab Take 1 tablet by mouth as needed. Vit C-Vit D-Bypfij-XqFf-Lutein (PRESERVISION LUTEIN) 226 mg-200 unit -5 mg-0.8 [...] Tessa Brock, PharmD, BCACP Primary Care Clinical [employer] documented in this encounter [facility] 07-16-2024 Note HNO ID: [id number] Author: TESSA BROCK RPh Service: ? Author [...] while she was in the hospital and [facility] and wasn't able to continue while in [...] bedtime. For cholesterol. 90 tablet 3 Insulin [place], Disposable, 29 gauge x 1/2 Use once daily as directed. Dx E11.29 100 Each 4 empagliflozin (JARDIANCE) 10 mg tablet Take 1 tablet by mouth once daily. Prescribed by inspector fabric calcitriol (ROCALTROL) 0.5 mcg capsule Take 0.5 [...] once daily. Per Dr. Yulia Antoine, cardiology. ffwwgwdfaus-baznswwzw-xhscfnrc (TRELEGY ELLIPTA) 100-62.5-25 mcg inhalation powder Inhale 1 Puff as instructed once daily. docusate sodium (COLACE) 100 mg capsule Take 1 capsule by mouth as needed. melatonin 5 mg tablet Take 2 tablets by mouth. senna (SENOKOT) 8.6 mg tab Take 1 tablet by mouth as needed. Vit C-Vit B-Jpjade-XvNc-Lutein (PRESERVISION LUTEIN) 226 mg-200 unit -5 mg-0.8 mg cap Take 1 capsule by mouth once daily. blood sugar diagnostic (Paradise CornerTOUCH ULTRA TEST) test strip Test blood sugar(s) 2 times daily. 200 Strip 3 epoetin azri (PROCRIT,EPOGEN) 10,000 unit/mL injection Inject 10,000 Units [...] TG 135 05/19 (more content not included)... [facility] 07-06-2024 Note HNO ID: [id number] Author: KACY MARY APRN.JERRY Service: ? Author Type: Nurse Practitioner Type: Progress Notes Filed: 07/06/2024 08:45 Note Text: CC: Patient presents with: Hospital F/U HPI Recording using ambient [employer] software for draft documentation of the visit was discussed with the patient/authorized computer help desk representative; all questions welcomed and answered. Patient/authorized computer help desk representative agreed to proceed Val is a 79-year-old female, with a history of right intertrochanteric femur fracture, pneumonia, Klebsiella UTI, and anxiety, presenting for follow-up after discharge from a nursing home facility. Val was initially admitted to [facility] on 04/28/24 for a right intertrochanteric femur fracture, which was surgically repaired on 04/29/24. She was then transferred to a nursing home facility for rehabilitation. During her stay, she was found unresponsive on 05/25/24 and was readmitted to [facility], where she was diagnosed with a right mid-lung infiltrate and Klebsiella UTI. She improved on antibiotics and was discharged back to the nursing home facility. She was discharged home on 06/25/24 [...] She is under the care of a transportation director who is attempting to wean her off [...] CONDYLEANDPLATU MEDIALANDLAT COMPART (more content not included)... [facility] 07-06-2024 History of Present illness Narrative CC: Patient presents with: Hospital F/U HPI Recording using iWeeb[employer] software for draft documentation of the visit was discussed with the patient/authorized computer help desk representative; all questions welcomed and answered. Patient/authorized computer help desk representative agreed to proceed Val is a 79-year-old female, with a history of right intertrochanteric femur fracture, pneumonia, Klebsiella UTI, and anxiety, presenting for follow-up after discharge from a nursing home facility. Val was initially admitted to [facility] on 04/28/24 for a right intertrochanteric femur fracture, which was surgically repaired on 04/29/24. She was then transferred to a nursing home facility for rehabilitation. During her stay, she was found unresponsive on 05/25/24 and was readmitted to [facility], where she was diagnosed with a right mid-lung infiltrate and Klebsiella UTI. She improved on antibiotics and was discharged back to the nursing home facility. She was discharged home on 06/25/24 [...] She is under the care of a transportation director who is attempting to wean her off [...] EXTRACTION HX 2016 both eyes catacts removed, [facility] CHOLECYSTECTOMY 1970 COLONOSCOPY FLX DX [...] mouth daily at bedtime. For cholesterol. Insulin [place], Disposable, 29 gauge x 1/2 Use once daily as directed. Dx E11.29 empagliflozin (JARDIANCE) 10 mg tablet Take 1 tablet by mouth once daily. Prescribed by inspector fabric calcitriol (ROCALTROL) 0.5 mcg capsule Take 0.5 [...] once daily. Per Dr. Yulia Antoine, cardiology. zrcggeuzpgp-evjkmwrhs-cklhpazu (TRELEGY ELLIPTA) 100-62.5-25 mcg inhalation powder Inhale 1 Puff as instructed once daily. docusate sodium (COLACE) 100 mg capsule Take 1 capsule by mouth as needed. melatonin 5 mg tablet Take 2 tablets by mouth. senna (SENOKOT) 8.6 mg tab Take 1 tablet by mouth as needed. Vit C-Vit N-Tsxmoy-DwFc-Lutein (PRESERVISION LUTEIN) 226 mg-200 unit -5 mg-0.8 [...] have reviewed the patient s records from [facility] including diagnostic testing performed, their discharge medications, and my assessment and plan with the patient and any family members present at today s visit. Assessment/Plan 1. Adjustment disorder with anxiety (F43.22) Depressive disorder (F32.A) Anxiety has increased since discharge from the nursing home facility, with episodes of sweating, dyspnea, and fear of falling. Currently on venlafaxine for depression and recently started on buspirone for anxiety management. - Increased buspirone to 10 mg BID; ordered 60 tablets with a refill to [facility]. - Continue venlafaxine as prescribed; refilled prescription to ensure availability in September. - Scheduled follow-up in one month to assess response to buspirone and anxiety levels. - Advised patient to call in two weeks if anxiety symptoms persist or worsen for potential dose adjustment. 2. Type 2 diabetes mellitus with stage 4 chronic kidney disease, with long-term current use of insulin ([facility]) (E11.22) Blood glucose levels fluctuating, with recent readings ranging from 126 to over 200 mg/dL. Currently on Lantus 45 units daily. Mounjaro was discontinued due to concerns about renal function and administration issues during hospitalization. - Continue Lantus 45 units daily. - Scheduled follow-up with clinical pharmacist Yoni to discuss potential resumption of Mounjaro. - Monitor blood glucose levels regularly. - follow-up with x ray developing machine operator as instructed 3. Fracture of unspecified part of neck of right femur, initial encounter for closed fracture ([facility]) (S72.001A) Currently receiving PT, OT, and home [...] Patient agreeable to treatment plan. Kacy Mary APRN.TECHNICAL STAFF ENGINEER Medical Decision Making: Problems: Moderate: 1+ chronic illnesses with change, New problem with uncertain prognosis and Acute complicated injury Data: Unique test result(s) reviewed: 3+ Risk: Low: Low risk from testing/treatment Moderate: Drug management Medical Decision Making Level: 4 - Moderate documented in this encounter [facility] 07-06-2024 Instructions Kacy Mary APRN.CNP - 07/06/2024 8:30 AM EDT We discussed your recent health concerns and follow-up care after your discharge from the nursing home facility: - Anxiety and Depression: - I increased your Buspirone (BuSpar) to 10 mg twice daily to help manage your anxiety. This prescription has been sent to [facility]. If you have any remaining [...] your next visit. documented in this encounter [facility] 06-29-2024 Telephone encounter Note Ezra with [facility] PT calls to report he saw pt today. PT will see pt twice a week x 3 weeks then once a week x 4 weeks for safety and mobility. Carole Lundy LPN [facility] 06-29-2024 Miscellaneous Notes Ezra with [facility] PT calls to report he saw pt today. PT will see pt twice a week x 3 weeks then once a week x 4 weeks for safety and mobility. Carole Lundy LPN documented in this encounter [facility] 06-26-2024 Telephone encounter Note Fyi to pcp [facility] 06-26-2024 Miscellaneous Notes Fyi to pcp Patient [...] work out he is in contact with social worker masters at the facility for plan B if needed. Called Val, vm is not set up. Called Rd/son, left vm to call & speak to nurse. Jesenia Glasgow LPN Renae - [facility]- returned call and informed her, pcp is agreeable to follow for [facility]. Tried calling [facility] back but not open yet. Johana Cerna MA I will follow. Please schedule post usp follow up. Discharge summary/medication list please. Chantell with [facility] calling. Patient will be discharging to home from [facility] on 06/25/24. Pt has orders for Home Health Nursing, PT and OT. Asking if provider will sign and follow for these orders? Call Chantell at [phone]. Elizabeth Obando RN documented in this encounter [facility] 06-23-2024 Telephone encounter Note Patient son Rd [...] work out he is in contact with social worker masters at the facility for plan B if needed. [facility] 06-23-2024 Telephone encounter Note Called Val, vm is not set up. Called Rd/son, left vm to call & speak to nurse. Jeesnia Glasgow LPN [facility] 06-23-2024 Telephone encounter Note Renae - [facility]- returned call and informed her, pcp is agreeable to follow for [facility]. [facility] 06-23-2024 Telephone encounter Note Tried calling [facility] back but not open yet. Johana Cerna MA [facility] 06-22-2024 Telephone encounter Note I will follow. Please schedule post usp follow up. Discharge summary/medication list please. [facility] 06-22-2024 Telephone encounter Note Chantell with [facility] calling. Patient will be discharging to home from [facility] on 06/25/24. Pt has orders for Home Health Nursing, PT and OT. Asking if provider will sign and follow for these orders? Call Chantell at [phone]. Elizabeth Obando RN [facility] 05-25-2024 Note [facility] 05-21-2024 Note [facility] 05-06-2024 Telephone encounter Note Called patient for scheduled pharmacy phone follow up; unable to reach after multiple attempts. Left VM with phone number to reschedule appointment. Tessa Brock PharmD, JEFERSON Primary Care Clinical [employer] [facility] Work Phone: 05-06-2024 Miscellaneous Notes Called patient for scheduled pharmacy phone follow up; unable to reach after multiple attempts. Left VM with phone number to reschedule appointment. Tessa Brock PharmD, JEFERSON Primary Care Clinical [employer] documented in this encounter [facility] 05-02-2024 Note [facility] 05-02-2024 Note [facility] 04-13-2024 Telephone encounter Note Called and [...] TESSA BROCK PharmD, JEFERSON Primary Care Clinical [employer] [facility] Work Phone: 04-13-2024 Miscellaneous Notes Called and spoke with patient. Discussed option of [facility] for Mounjaro prescription; patient agreeable. Sent Rx to [facility] Delivery pharmacy Patient's request for medication is as follows: Requested Prescriptions Signed Prescriptions Disp Refills tirzepatide (MOUNJARO) 2.5 mg/0.5 mL pen injector 2 mL 1 Sig: Inject 2.5 mg subcutaneously one time a week. Authorizing Provider: KACY MARY Ordering User: TESSA BROCK, PharmD, BCACP Primary Care Clinical [employer] Pt calls to report that [facility] does not have Mounjoro so she cannot get it there. [facility] also does not have it. 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 Pt is asking where else she could get Mounjoro or what else can she do. Please review and advise. Carole Lundy LPN documented in this encounter [facility] 04-13-2024 Telephone encounter Note Pt calls to report that [facility] does not have Mounjoro so she cannot get it there. [facility] also does not have it. 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 Pt is asking where else she could get Mounjoro or what else can she do. Please review and advise. Carole Lundy LPN [facility] 04-08-2024 Telephone encounter Note Rx sent to [facility]. Patient's request for medication is as follows: Requested Prescriptions Signed Prescriptions Disp Refills tirzepatide (MOUNJARO) 2.5 mg/0.5 mL pen injector 2 mL 1 Sig: Inject 2.5 mg subcutaneously one time a week. Authorizing Provider: KACY MARY Ordering User: PANECCASITESSA Gooden PharmD, JEFERSON Primary Care Clinical [employer] [facility] Work Phone: 04-08-2024 Miscellaneous Notes Rx sent to [facility]. Patient's request for medication is as follows: Requested Prescriptions Signed Prescriptions Disp Refills tirzepatide (MOUNJARO) 2.5 mg/0.5 mL pen injector 2 mL 1 Sig: Inject 2.5 mg subcutaneously one time a week. Authorizing Provider: KACY MARY Ordering User: TESSA BROCK PharmD, JEFERSON Primary Care Clinical [employer] Patient calling in and states her pharmacy ([address]) is unable to get her Mounjaro for her, as ordered by Reese Brock RPh. Patient requesting script be sent to [facility], please. Thank you. Elizabeth Obando RN documented in this encounter [facility] 04-08-2024 Telephone encounter Note Patient calling in and states her pharmacy ([email or web address]) is unable to get her Mounjaro for her, as ordered by Reese Brock RPh. Patient requesting script be sent to [facility], please. Thank you. Elizabeth Obando RN [facility] 04-08-2024 Telephone encounter Note Called and spoke with patient for scheduled phone visit Tessa Brock PharmD, BCACP Primary Care Clinical [employer] [facility] Work Phone: 04-08-2024 Miscellaneous Notes Called and spoke with patient for scheduled phone visit Tessa Brock, Janessa, BCACP Primary Care Clinical [employer] Patient was having trouble answering telephone call for appt. Requests call back at [phone]. Viktoria Johnston RN documented in this encounter [facility] 04-08-2024 Telephone encounter Note Patient was having trouble answering telephone call for appt. Requests call back at [phone]. Viktoria Johnston RN [facility] 04-08-2024 History of Present illness Narrative Primary [...] daily at bedtime. 60 mL 3 Insulin [place], Disposable, 29 gauge x 1/2 Use once daily as directed. Dx E11.29 100 Each 4 venlafaxine ER (EFFEXOR XR) 75 mg 24 hr capsule Take 1 capsule by mouth once daily. 90 capsule 3 empagliflozin (JARDIANCE) 10 mg tablet Take 1 tablet by mouth once daily. Prescribed by inspector fabric calcitriol (ROCALTROL) 0.5 mcg capsule Take 0.5 [...] once daily. Per Dr. Yulia Antoine, cardiology. zperqrtbora-krpbjuvrs-virhyacm (TRELEGY ELLIPTA) 100-62.5-25 mcg inhalation powder Inhale 1 Puff as instructed once daily. docusate sodium (COLACE) 100 mg capsule Take 1 capsule by mouth as needed. melatonin 5 mg tablet Take 2 tablets by mouth. senna (SENOKOT) 8.6 mg tab Take 1 tablet by mouth as needed. Vit C-Vit O-Yvoadq-KtHs-Lutein (PRESERVISION LUTEIN) 226 mg-200 unit -5 mg-0.8 [...] Tessa Brock, PharmD, BCACP Primary Care Clinical [employer] documented in this encounter [facility] 04-08-2024 Note HNO ID: [id number] Author: TESSA BROCK RPh Service: ? Author [...] daily at bedtime. 60 mL 3 Insulin [place], Disposable, 29 gauge x 1/2 Use once daily as directed. Dx E11.29 100 Each 4 venlafaxine ER (EFFEXOR XR) 75 mg 24 hr capsule Take 1 capsule by mouth once daily. 90 capsule 3 empagliflozin (JARDIANCE) 10 mg tablet Take 1 tablet by mouth once daily. Prescribed by inspector fabric calcitriol (ROCALTROL) 0.5 mcg capsule Take 0.5 [...] once daily. Per Dr. Yulia Antoine, cardiology. dmvumjdjrti-egihibysm-jqwnulgd (TRELEGY ELLIPTA) 100-62.5-25 mcg inhalation powder Inhale 1 Puff as instructed once daily. docusate sodium (COLACE) 100 mg capsule Take 1 capsule by mouth as needed. melatonin 5 mg tablet Take 2 tablets by mouth. senna (SENOKOT) 8.6 mg tab Take 1 tablet by mouth as needed. Vit C-Vit T-Dbeyqr-KqBk-Lutein (PRESERVISION LUTEIN) 226 mg-200 unit -5 mg-0.8 mg cap Take 1 capsule by mouth once daily. COMPOUNDED PRESCRIPTION Take 1 tablet by mouth twice daily. Plexus Bio-5 (Probiotic) blood sugar diagnostic (Paradise CornerTOUCH ULTRA TEST) test strip Test blood sugar(s) [...] 2 diabetes me (more content not included)... [facility] 03-30-2024 Telephone encounter Note PATIENT NOTIFIED OF SAME. [facility] 03-30-2024 Miscellaneous Notes PATIENT NOTIFIED OF SAME. Please let the patient know the urine culture was positive for UTI. Start treatment with Keflex and follow-up in 2-3 days if there is no improvement Kacy Mary APRN.TECHNICAL STAFF ENGINEER documented in this encounter [facility] 03-30-2024 Telephone encounter Note Please let the patient know the urine culture was positive for UTI. Start treatment with Keflex and follow-up in 2-3 days if there is no improvement Kacy Mary APRN.TECHNICAL STAFF ENGINEER [facility] 03-25-2024 Note Addended by: KACY GRAMAJO on: 03/25/2024 05:05 PM Modules accepted: Orders [facility] 03-25-2024 Miscellaneous Notes Addended by: KACY MARY on: 03/25/2024 05:05 PM Modules accepted: Orders documented in this encounter [facility] 03-25-2024 Note HNO ID: [id number] Author: KACY MARY APRN.TECHNICAL STAFF ENGINEER Service: ? Author Type: Nurse Practitioner Type: [...] EXTRACTION HX 2016 both eyes catacts removed, [facility] CHOLECYSTECTOMY 1970 COLONOSCOPY FLX DX [...] 20 mg tablet daily as needed Insulin [place], Disposable, 29 gauge x 1/2 Use once daily as directed. Dx E11.29 venlafaxine (more content not included)... [facility] 03-25-2024 History of Present illness Narrative CC: [...] EXTRACTION HX 2016 both eyes catacts removed, [facility] CHOLECYSTECTOMY 1970 COLONOSCOPY FLX DX [...] 20 mg tablet daily as needed Insulin [place], Disposable, 29 gauge x 1/2 Use once daily as directed. Dx E11.29 venlafaxine ER (EFFEXOR XR) 75 mg 24 hr capsule Take 1 capsule by mouth once daily. empagliflozin (JARDIANCE) 10 mg tablet Take 1 tablet by mouth once daily. Prescribed by inspector fabric calcitriol (ROCALTROL) 0.5 mcg capsule Take 0.5 [...] once daily. Per Dr. Yulia Antoine, cardiology. abkuwsmlrgm-rymsyiswh-xmdoswpx (TRELEGY ELLIPTA) 100-62.5-25 mcg inhalation powder Inhale 1 Puff as instructed once daily. docusate sodium (COLACE) 100 mg capsule Take 1 capsule by mouth as needed. melatonin 5 mg tablet Take 2 tablets by mouth. senna (SENOKOT) 8.6 mg tab Take 1 tablet by mouth as needed. Vit C-Vit Y-Bogzlo-MwCz-Lutein (PRESERVISION LUTEIN) 226 mg-200 unit -5 mg-0.8 mg cap Take 1 capsule by mouth once daily. COMPOUNDED PRESCRIPTION Take 1 tablet by mouth twice daily. Plexus Bio-5 (Probiotic) blood sugar diagnostic ([place] CornerTOUCH ULTRA TEST) test strip Test blood sugar(s) [...] Albuminuria: stable Follow-up with pharm D and x ray developing machine operator as directed - LANTUS SOLOSTAR U-100 INSULIN [...] 428.23, ICD10: I11.0, I50.23 Stable Follow-up with inspector fabric as directed 6. Hyperparathyroidism, secondary renal (HCC) [...] YR, HIGH DOSE, TRIVALENT (FLUZONE HIGH-DOSE) - [employer] COVID-19 VACCINE AGE 12+ YR (COMIRNATY) Prescription instructions reviewed with patient as applicable. Potential red flag symptoms discussed with the patient. Reviewed appropriate action plan to take if red flag symptoms occur. Patient agreeable to treatment plan. Kacy Mary APRN.TECHNICAL STAFF ENGINEER documented in this encounter [facility] 03-24-2024 History of Present illness Narrative Subjective [...] weight. This note was transcribed using the [email or web address] Dictation system. There may be grammatical, punctuation, or verbiage errors that occur with voice recognition programs. Paula Walter DO 03/24/24 11:04 AM documented in this encounter [facility] Work Phone: 03-05-2024 History of Present illness Narrative Cardiology Subsequent Encounter Clinic Note Name: Val Erickson : 1945 CC: HFrEF Active Issues: 79-year-old female with a medical history of diabetes, neuropathy, hypertension, hyperlipidemia who was first seen at [facility] January 29, 2022 with shortness of breath [...] With LV; Surgeon: Cesar Lucio MD; Location: [facility] Cardiac Allergy And Immunology Chief; Service: Cardiovascular; Laterality: N/A; CARDIAC DEFIBRILLATOR PLACEMENT [...] skin see administration instructions. EVERY 28 DAYS qverhotfkbz-tkenkicic-vqxqilmy (Trelegy Ellipta) 100-62.5-25 mcg blister with device [...] hyperlipidemia who was first seen at [facility] January 29, 2022 with shortness of breath [...] Antoine MD Advanced Heart Failure/Transplant Cardiology Cardio-Oncology [facility] documented in this encounter [facility] Work Phone: 02-28-2024 History of Present illness [...] daily as needed 120 tablet 1 Insulin [place], Disposable, 29 gauge x 1/2 Use once [...] tablet by mouth once daily. Prescribed by inspector fabric calcitriol (ROCALTROL) 0.5 mcg capsule Take 0.5 [...] once daily. Per Dr. Yulia Antoine, cardiology. mwbfquioejv-pawyhrdfc-kqgjgdfe (TRELEGY ELLIPTA) 100-62.5-25 mcg inhalation powder Inhale 1 Puff as instructed once daily. docusate sodium (COLACE) 100 mg capsule Take 1 capsule by mouth as needed. melatonin 5 mg tablet Take 2 tablets by mouth. senna (SENOKOT) 8.6 mg tab Take 1 tablet by mouth as needed. Vit C-Vit I-Nwxhye-KkYf-Lutein (PRESERVISION LUTEIN) 226 mg-200 unit -5 mg-0.8 mg cap Take 1 capsule by mouth once daily. COMPOUNDED PRESCRIPTION Take 1 tablet by mouth twice daily. Plexus Bio-5 (Probiotic) blood sugar diagnostic (Par[place] CornerTOUCH ULTRA TEST) test strip Test blood sugar(s) [...] Tessa Brock, Janessa, BCACP Primary Care Clinical [employer] documented in this encounter [facility] 02-28-2024 Note HNO ID: [id number] Author: TESSA BROCK RPh Service: ? Author [...] daily as needed 120 tablet 1 Insulin [place], Disposable, 29 gauge x 1/2 Use once [...] tablet by mouth once daily. Prescribed by inspector fabric calcitriol (ROCALTROL) 0.5 mcg capsule Take 0.5 [...] once daily. Per Dr. Yulia Antoine, cardiology. fquokqfkxez-mgpqhdggz-lxbevevw (TRELEGY ELLIPTA) 100-62.5-25 mcg inhalation powder Inhale 1 Puff as instructed once daily. docusate sodium (COLACE) 100 mg capsule Take 1 capsule by mouth as needed. melatonin 5 mg tablet Take 2 tablets by mouth. senna (SENOKOT) 8.6 mg tab Take 1 tablet by mouth as needed. Vit C-Vit A-Vwwvnf-KyVd-Lutein (PRESERVISION LUTEIN) 226 mg-200 unit -5 mg-0.8 mg cap Take 1 capsule by mouth once daily. COMPOUNDED PRESCRIPTION Take 1 tablet by mouth twice daily. Plexus Bio-5 (Probiotic) blood sugar diagnostic ([place] CornerTOUCH ULTRA TEST) test strip Test blood sugar(s) [...] 05/19/2018 30 ASSESSMENT/PLAN: (more content not included)... [facility] 02-26-2024 Telephone encounter Note Called patient for scheduled pharmacy phone follow up; unable to reach after multiple attempts. Left VM with phone number to reschedule appointment. Tessa Brock PharmD, JEFERSON Primary Care Clinical [employer] [facility] Work Phone: 02-26-2024 Miscellaneous Notes Called patient for scheduled pharmacy phone follow up; unable to reach after multiple attempts. Left VM with phone number to reschedule appointment. Tessa Brock PharmD, JEFERSON Primary Care Clinical [employer] documented in this encounter [facility] 01-15-2024 History of Present illness Narrative Images from the original note were not included. Primary Care Pharmacy Visit CC (Reason for Consult): (E11.22, N18.4, Z79.4) Type 2 diabetes mellitus with stage 4 chronic kidney disease, with long-term current use of insulin ([facility]) (primary encounter diagnosis) Goal(s): A1c <7% Last [...] daily at bedtime. 60 mL 3 Insulin [place], Disposable, 29 gauge x 1/2 Use once [...] tablet by mouth once daily. Prescribed by inspector fabric calcitriol (ROCALTROL) 0.5 mcg capsule Take 0.5 [...] once daily. Per Dr. Yulia Antoine, cardiology. ykpkvsawaew-oxfakvxsq-fotdtmro (TRELEGY ELLIPTA) 100-62.5-25 mcg inhalation powder Inhale 1 Puff as instructed once daily. docusate sodium (COLACE) 100 mg capsule Take 1 capsule by mouth as needed. melatonin 5 mg tablet Take 2 tablets by mouth. senna (SENOKOT) 8.6 mg tab Take 1 tablet by mouth as needed. Vit C-Vit T-Orshnw-XnKm-Lutein (PRESERVISION LUTEIN) 226 mg-200 unit -5 mg-0.8 mg cap Take 1 capsule by mouth once daily. COMPOUNDED PRESCRIPTION Take 1 tablet by mouth twice daily. Plexus Bio-5 (Probiotic) blood sugar diagnostic ([place] CornerTOUCH ULTRA TEST) test strip Test blood sugar(s) [...] Tessa Brock, PharmD, BCACP Primary Care Clinical [employer] documented in this encounter [facility] 01-15-2024 Note HNO ID: [id number] Author: TESSA BROCK RPh Service: ? Author [...] daily at bedtime. 60 mL 3 Insulin [place], Disposable, 29 gauge x 1/2 Use once [...] tablet by mouth once daily. Prescribed by inspector fabric calcitriol (ROCALTROL) 0.5 mcg capsule Take 0.5 [...] once daily. Per Dr. Yulia Antoine, cardiology. bnbmmowxtip-ymauxcddn-pkfxwehc (TRELEGY ELLIPTA) 100-62.5-25 mcg inhalation powder Inhale 1 Puff as instructed once daily. docusate sodium (COLACE) 100 mg capsule Take 1 capsule by mouth as needed. melatonin 5 mg tablet Take 2 tablets by mouth. senna (SENOKOT) 8.6 mg tab Take 1 tablet by mouth as needed. Vit C-Vit C-Pvavyf-MnMu-Lutein (PRESERVISION LUTEIN) 226 mg-200 unit -5 mg-0.8 mg cap Take 1 capsule by mouth once daily. COMPOUNDED PRESCRIPTION Take 1 tablet by mouth twice daily. Plexus Bio-5 (Probiotic) blood sugar diagnostic ([place] CornerTOUCH ULTRA TEST) test strip Test blood sugar(s) [...] 05/19/2018 LDL 50 (more content not included)... [facility] 12-03-2023 Telephone encounter Note The patient has [...] Aguilar RN December 03, 2023 12:04 PM [facility] 12-03-2023 Miscellaneous Notes The patient has been [...] 2023 12:04 PM documented in this encounter [facility] 10-30-2023 History of Present illness Narrative Images from the original note were not included. Primary Care Pharmacy Visit CC (Reason for Consult): (E11.22, N18.4, Z79.4) Type 2 diabetes mellitus with stage 4 chronic kidney disease, with long-term current use of insulin ([facility]) (primary encounter diagnosis) Goal(s): A1c <7% Last Collaborating Provider Visit: 09/23/23 with Kacy Mary CNP Val Erickson is a 78 year old female presenting for follow up visit telephone call. Patient consents to pharmacy collaborative practice agreement. Last Pharmacy Visit: 09/04/23 - Lantus decreased to 48 units daily Interim Events: - 09/12/23 Jardiance started by outside inspector fabric HPI: Reports doing well States she self-increased [...] Outpatient Medications Medication Sig Dispense Refill Insulin [place], Disposable, 29 gauge x 1/2 Use once [...] tablet by mouth once daily. Prescribed by inspector fabric insulin glargine (LANTUS SOLOSTAR U-100 INSULIN) 100 [...] once daily. Per Dr. Yulia Antoine, cardiology. rwlnizezznv-qdqbzzpwf-vcqectck (TRELEGY ELLIPTA) 100-62.5-25 mcg inhalation powder Inhale 1 Puff as instructed once daily. docusate sodium (COLACE) 100 mg capsule Take 1 capsule by mouth as needed. melatonin 5 mg tablet Take 2 tablets by mouth. senna (SENOKOT) 8.6 mg tab Take 1 tablet by mouth as needed. Vit C-Vit B-Iqoccg-XfZd-Lutein (PRESERVISION LUTEIN) 226 mg-200 unit -5 mg-0.8 [...] Tessa Brock, PharmD, BCACP Primary Care Clinical [employer] documented in this encounter [facility] 10-30-2023 Note HNO ID: [id number] Author: TESSA BROCK jennifer Service: ? Author [...] Events: - 09/12/23 Jardiance started by outside inspector fabric HPI: Reports doing well States she self-increased [...] Outpatient Medications Medication Sig Dispense Refill Insulin [place], Disposable, 29 gauge x 1/2 Use once [...] tablet by mouth once daily. Prescribed by inspector fabric insulin glargine (LANTUS SOLOSTAR U-100 INSULIN) 100 [...] once daily. Per Dr. Yulia Antoine, cardiology. teahtinhuoe-wsclmrbbe-zlhsenfj (TRELEGY ELLIPTA) 100-62.5-25 mcg inhalation powder Inhale 1 Puff as instructed once daily. docusate sodium (COLACE) 100 mg capsule Take 1 capsule by mouth as needed. melatonin 5 mg tablet Take 2 tablets by mouth. senna (SENOKOT) 8.6 mg tab Take 1 tablet by mouth as needed. Vit C-Vit E-Pdlhcr-UeQr-Lutein (PRESERVISION LUTEIN) 226 mg-200 unit -5 mg-0.8 mg cap Take 1 capsule by mouth once daily. COMPOUNDED PRESCRIPTION Take 1 tablet by mouth twice daily. Plexus Bio-5 (Probiotic) blood sugar diagnostic (Paradise CornerTOUCH ULTRA TEST) test strip Test blood sugar(s) 2 times daily. (Patient taking differently: 1 Each. Test blood sugar(s) 2 times daily.) 200 Strip 3 epoetin zari (PROCRIT,EPOGEN) 10,000 unit/mL injection Inject 10,000 Units subcutaneously q 4 WEEKS. 12,000 Units every two weeks. 0 Lancets (FREESTYLE LANCETS) [facility] Misc Test twice daily 250.02 100 3 [...] Creatinine 2.02 / (more content not included)... [facility] 10-22-2023 Telephone encounter Note Prescription Refill Information [...] Requested Prescriptions Pending Prescriptions Disp Refills Insulin [place], Disposable, 29 gauge x 1/2 100 Each 4 Sig: Use once daily as directed. Dx E11.29 Marly Buck October 22, 2023 9:45 AM [facility] 10-22-2023 Miscellaneous Notes Prescription Refill Information The [...] Requested Prescriptions Pending Prescriptions Disp Refills Insulin [place], Disposable, 29 gauge x 1/2 100 Each 4 Sig: Use once daily as directed. Dx E11.29 Marly Buck October 22, 2023 9:45 AM documented in this encounter [facility] 10-16-2023 Note HNO ID: [id number] Author: ANNALISA STEPHEN RN Service: ? Author [...] to talk about today? No Based on nursing professor, the following disposition is advised: Other Call Dispositions No action needed Program Disposition Patient dispositioned from Program today: Yes Patient Graduated -- The patient has completed the full care coordination episode. Annalisa Stephen RN October 16, 2023 12:46 PM [facility] 10-16-2023 History of Present illness Narrative [facility] Care Path Telephonic Outreach Provider Action/ I [...] to talk about today? No Based on nursing professor, the following disposition is advised: Other Call Dispositions No action needed Program Disposition Patient dispositioned from Program today: Yes Patient Graduated -- The patient has completed the full care coordination episode. Annalisa Stephen RN October 16, 2023 12:46 PM documented in this encounter [facility] 10-16-2023 Note Patient Outreach ([facility] [place] VAL ERICKSON ([id number]) 1945 F Date Time Provider Department 10/16/23 ANNALISA STEPHEN During your visit today, we recorded the following information about you: Annalisa Stephen RN 10/16/2023 12:47 PM Signed [facility] Care Path Telephonic Outreach Provider Action/FY I [...] to talk about today? No Based on nursing professor, the following disposition is advised: Other Call [...] Date Reviewed: 09/23/2023 Reviewed by: Kacy Mary APRN.TECHNICAL STAFF ENGINEER - Fully Assessed Reason for Visit: Community [...] tablet by mouth once daily. Prescribed by inspector fabric - insulin glargine (LANTUS SOLOSTAR U-100 INSULIN) [...] Per Dr. Yulia Antoine, cardiology. - Insulin [place], Disposable, 29 gauge x 1/2 Use once daily as directed. Dx E11.29 - ndvmxvxysmr-izguykpbc-preeunfn (TRELEGY ELLIPTA) 100-62.5-25 mcg inhalation powder Inhale 1 Puff as instructed once daily. - docusate sodium (COLACE) 100 mg capsule Take 1 capsule by mouth as needed. - melatonin 5 mg tablet Take 2 tablets by mouth. - senna (SENOKOT) 8.6 mg tab Take 1 tablet by mouth as needed. - Vit C-Vit M-Epuayw-MqBr-Lutein (PRESERVISION LUTEIN) 226 mg-200 unit -5 mg-0.8 [...] disease) stage 4, (more content not included)... [facility] 10-10-2023 Telephone encounter Note Ezra notified. Paul Alcaraz MA [facility] 10-10-2023 Miscellaneous Notes Ezra notified. Paul Alcaraz MA [facility] PT extension. DANNY Munguia @ [facility] calling with request for order to extend PT. Physical Therapy will see patient 1 x/week for four more weeks for gait, mobility and balance. If agree, may leave message on #[phone]. Erika Barahona, SYLVAIN documented in this encounter [facility] 10-10-2023 Telephone encounter Note [facility] PT extension. [facility] 10-09-2023 Telephone encounter Note DANNY Munguia @ [facility] calling with request for order to extend PT. Physical Therapy will see patient 1 x/week for four more weeks for gait, mobility and balance. If agree, may leave message on #[phone]. Erika Barahona RN [facility] 09-30-2023 Note HNO ID: [id number] Author: MALISSA MADISON RN Service: ? Author Type: Registered Nurse Type: Progress Notes Filed: 09/30/2023 14:27 Note Text: TRANSITION CARE MANAGEMENT (TCM) FOLLOW-UP NOTE Provider Action/FYI TCM OON follow up Patient identified by name and date of : YES Spoke to patient Discharge Network Status: Arc-dl-Hslhbhj (OON) Discharge Summary: Pt dc'd from [facility] 09/10 Admitted for chest pain Hospital Course [...] 09/11. Patient existing appoint with nephrology in [place] for Saturday. Patient to follow-up with PCP in 2 weeks. Patient is in fair condition to discharge home with [facility] care. Resume home meds. No new [...] her often, has a cleaning lady. Has [facility]- had therapy yesterday and BP was slightly [...] sent to her about the Hydralazine . Cream Maker plan for next outreach: TCM will continue to follow. DEVYN Education Ordered -: No Malissa Madison RN September 30, 2023 2:08 PM [facility] 09-30-2023 History of Present illness Narrative TRANSITION CARE MANAGEMENT (TCM) FOLLOW-UP NOTE Provider Action/FYI TCM OON follow up Patient identified by name and date of : YES Spoke to patient Discharge Network Status: Xeb-du-Gmvzijr (OON) Discharge Summary: Pt dc'd from [facility] 09/10 Admitted for chest pain Hospital Course [...] 09/11. Patient existing appoint with nephrology in [place] for Saturday. Patient to follow-up with PCP in 2 weeks. Patient is in fair condition to discharge home with [facility] care. Resume home meds. No new [...] her often, has a cleaning lady. Has [facility]- had therapy yesterday and BP was slightly [...] sent to her about the Hydralazine . Cream Maker plan for next outreach: TCM will continue to follow. DEVYN Education Ordered -: No Malissa Madison RN September 30, 2023 2:08 PM documented in this encounter [facility] 09-30-2023 Note HNO ID: [id number] Author: TESSA BROCK RPh Service: ? Author Type: Pharmacist Type: Progress Notes Filed: 10/01/2023 12:21 Note Text: Noted. Per dispense history, hydralazine last filled 09/28/23 for 90 day supply for 30 day supply. Will call to inform patient; refill likely on its way from mailorder pharmacy. Tessa Brock PharmD, JEFERSON Primary Care Clinical [employer] [facility] 09-30-2023 Note HNO ID: [id number] Author: TESSA BROCK RPh Service: ? Author Type: Pharmacist Type: Progress Notes Filed: 10/01/2023 16:02 Note Text: Called patient to inform of below message; unable to reach. Left VM for patient. Tessa Brock PharmD, BCACP Primary Care Clinical [employer] [facility] 09-30-2023 Note Patient Outreach ([facility] [place] VAL ERICKSON ([id number]) 1945 F Date Time Provider Department 09/30/23 MALISSA MADISON During your visit today, we recorded the following information about you: Tessa Brock RPh 10/01/2023 12:21 PM Addendum Noted. Per dispense history, hydralazine last filled 09/28/23 for 90 day supply for 30 day supply. Will call to inform patient; refill likely on its way from mailorder pharmacy. Tessa Brock PharmD, JEFERSON Primary Care Clinical [employer] Tessa Borck RPh 10/01/2023 4:02 PM Signed Called patient to inform of below message; unable to reach. Left VM for patient. Tessa Brock PharmD, JEFERSON Primary Care Clinical [employer] Malissa Madison, SYLVAIN 09/30/2023 2:27 PM Signed TRANSITION CARE MANAGEMENT (TCM) FOLLOW-UP NOTE Provider Action/FYI TCM OON follow up Patient identified by name and date of : YES Spoke to patient Discharge Network Status: Xkn-ir-Ujyptyw (OON) Discharge Summary: Pt dc'd from [facility] 09/10 Admitted for chest pain Hospital Course [...] 09/11. Patient existing appoint with nephrology in [place] for Saturday. Patient to follow-up with PCP in 2 weeks. Patient is in fair condition to discharge home with [facility] care. Resume home meds. No new [...] her often, has a cleaning lady. Has [facility]- had therapy yesterday and BP was slightly [...] sent to her about the Hydralazine . Cream Maker plan for next outreach: TCM will continue [...] Date Reviewed: 09/23/2023 Reviewed by: Kacy Mary, TIRE REPAIRMAN.TECHNICAL STAFF ENGINEER - Fully Assessed Reason for Visit: Transition [...] tablet by mouth once daily. Prescribed by inspector fabric - insulin glargine (LANTUS SOLOSTAR U-100 INSULIN) 100 unit/mL (3 mL) Inject 48 Units subcutaneously daily at bedtime. - furosemide (LASIX) 20 mg tablet Take 1 tablet by mouth once daily. Take an extra 20 mg tablet daily as needed - calcitriol (ROCALTROL) 0.5 mcg capsule Take 0.5 mcg by mouth. - clotrimazo (more content not included)... [facility] 09-23-2023 Telephone encounter Note Left detailed message on OneName VM. [facility] 09-23-2023 Miscellaneous Notes Left detailed message on secure VM. ----- Message from Kacy Mary APRN.CNP sent at 09/23/2023 11:03 AM EDT ----- Please let the patient know the x-ray was negative for fracture. Call office in 2 weeks if pain does not improve or sooner if any worsening Kacy Mary APRN.CNP documented in this encounter [facility] 09-23-2023 Telephone encounter Note ----- Message from Kacy Mary APRN.TECHNICAL STAFF ENGINEER sent at 09/23/2023 11:03 AM EDT ----- Please let the patient know the x-ray was negative for fracture. Call office in 2 weeks if pain does not improve or sooner if any worsening Kacy Mary APRN.TECHNICAL STAFF ENGINEER [facility] 09-23-2023 History of Present illness Narrative Radiology [...] PATIENT PRESENTS WITH AN IMPLANTABLE OR ATTACHED LABORATORY TESTER: No RADIOLOGY DEPARTMENT: General X-ray: Exam(s) Completed: Pelvis X-Ray: Pelvis with Hip Right PERIPHERAL IV DATA: Not applicable SIGNED BY: RT Brian(Liliana) September 23, 2023 10:50 AM documented in this encounter [facility] 09-23-2023 Note HNO ID: [id number] Author: SHON LINK RT(R) Service: ? Author Type: Prepress Operator Type: Progress Notes Filed: 09/23/2023 10:50 Note [...] PATIENT PRESENTS WITH AN IMPLANTABLE OR ATTACHED LABORATORY TESTER: No RADIOLOGY DEPARTMENT: General X-ray: Exam(s) Completed: Pelvis X-Ray: Pelvis with Hip Right PERIPHERAL IV DATA: Not applicable SIGNED BY: RT Brian(Liliana) September 23, 2023 10:50 AM [facility] 09-23-2023 Instructions Kacy Mary APRN.[facility] - 09/23/2023 9:26 AM EDT Screening [...] review all the medicines you take, even dtsz-svw-cwthlpr medicines. As you get older, the way [...] certain medical conditions. documented in this encounter [facility] 09-23-2023 Note HNO ID: [id number] Author: KACY MARY APRN.JERRY Service: ? Author [...] seen: Renal-Dr. Louise, Cardiology-Dr. Wayne, Podiatry-Dr. Hicks ([facility]), transportation director- Dr. Walter Medical/Family history review Reviewed and [...] Home blood sugar readings: fasting typically in [id number]'s Hypoglycemia: No She is compliant with medication(s) [...] - Instructed patient to contact office or eykyb-ae-jmxq after-hours promptly should condition worsen or any new symptoms appear. - Given information regarding [facility] [employer] - VENLAFAXINE ER 75 MG CAPSULE,EXTENDED RELEASE 24 HR 3. Right hip pain - ICD9: 719.45, ICD10: M25.551 Secondary to fa (more content not included)... [facility] 09-23-2023 History of Present illness Narrative Images [...] Turpin MD as PCP - Tessa Blakely [facility] as Pharmacist (Pharmacy) [facility] ophthalmology Outside specialists seen: Renal-Dr. Louise, Cardiology-Dr. Wayne, Podiatry-Dr. Hicks ([facility]), transportation director- Dr. Walter Medical/Family history review Reviewed and [...] Home blood sugar readings: fasting typically in [id number]'s Hypoglycemia: No She is compliant with medication(s) [...] - Instructed patient to contact office or xibhf-tc-yipr after-hours promptly should condition worsen or any [...] Gabapentin - GABAPENTIN 300 MG CAPSULE Kacy Mary APRN.TECHNICAL STAFF ENGINEER documented in this encounter [facility] 09-17-2023 Telephone encounter Note Noted. I signed face to face which was cardiology inpatient consult 09/09/23. [facility] 09-17-2023 Miscellaneous Notes Noted. I signed face to face which was cardiology inpatient consult 09/09/23. 1)Ezra with [facility], PT called to reports he saw [...] Juli Figueredo LPN documented in this encounter [facility] 09-17-2023 Telephone encounter Note 1)Ezra with [facility], PT called to reports he saw pt today and will be seeing pt once this week, then 2 times a week for 2 weeks , then 1 time a week for 3 weeks. DX CHF, Kidney disease, diabetes. No call back needed. 2)Ezra reports pt had a fall Saturday09-13-23, no injury . No call back needed. Juli Figueredo LPN [facility] 09-16-2023 History of Present illness Narrative Subjective [...] months. This note was transcribed using the [employer] Dictation system. There may be grammatical, punctuation, or verbiage errors that occur with voice recognition programs. Paula Walter DO 09/16/23 11:52 AM documented in this encounter [facility] Work Phone: 09-13-2023 Telephone encounter Note Patient calling to request lab orders be faxed to [facility]. Faxed as requested. Elizabeth Obando RN [facility] 09-13-2023 Miscellaneous Notes Patient calling to request lab orders be faxed to [facility]. Faxed as requested. Elizabeth Obando RN documented in this encounter [facility] 09-12-2023 History of Present illness Narrative Cardiology Subsequent Encounter Clinic Note Name: Val Erickson : 1945 CC: HFrEF Active Issues: 78-year-old female with a medical history of diabetes, neuropathy, hypertension, hyperlipidemia who was first seen at [facility] January 29, 2022 with shortness of breath [...] With LV; Surgeon: Cesar Lucio MD; Location: [facility] Cardiac Allergy And Immunology Chief; Service: Cardiovascular; Laterality: N/A; CARDIAC DEFIBRILLATOR PLACEMENT [...] skin see administration instructions. EVERY 28 DAYS iakuexwjgvu-cprlsgdrx-epevwnog (Trelegy Ellipta) 100-62.5-25 mcg blister with device [...] 25 mg at 09/11/23 08 [DISCONTINUED] HYDROcodone-acetaminophen ([place]) 5-325 mg per tablet 1 tablet 1 tablet oral q6h PRN FLORIN Harkins 1 tablet at 09/11/23 0034 [DISCONTINUED] insulin glargine (Lantus) injection 55 Units 55 Units subcutaneous Nightly Gregorio Glez [facility] 55 Units at 09/10/23 204 [DISCONTINUED] insulin [...] hyperlipidemia who was first seen at [facility] January 29, 2022 with shortness of breath [...] Antoine MD Advanced Heart Failure/Transplant Cardiology Cardio-Oncology [facility] documented in this encounter [facility] Work Phone: 09-11-2023 Telephone encounter Note Phoned [facility] and went over notes below from Kacy Mary NP with understanding. [facility] 09-11-2023 Miscellaneous Notes Phoned [facility] and went over notes below from Kacy Mary NP with understanding. Okay for orders, PCP will follow Kacy Mary APRN.TECHNICAL STAFF ENGINEER Suzi with [facility] calling to let you know pt is due to be discharged from [facility] in the next 24 to 48 hours. They ae calling to see if you will follow and sign for HH, nursing and PT. DX chest pain. Please advise Suzi with verbal orders. Juli Figueredo LPN documented in this encounter [facility] 09-11-2023 Telephone encounter Note Okay for orders, PCP will follow Kacy Mary APRN.JERRY [facility] 09-11-2023 Nurse Note Discharge Note: 09/11/2023 1352 [...] distress noted, no complaints voiced. Fredo NARAYAN [facility] 09-11-2023 Nurse Note Discharge Note: 09/11/2023 1352 [...] a little wobbly. documented in this encounter [facility] Work Phone: 09-11-2023 Hospital course Narrative Discharge [...] 100-62.5-25 mcg blister with device Generic drug: enwsdqyqyvo-kkwvaljxq-nbxikctd venlafaxine XR 37.5 mg 24 hr capsule [...] 09/11. Patient existing appoint with nephrology in [place] for Saturday. Patient to follow-up with PCP in 2 weeks. Patient is in fair condition to discharge home with [facility] health care. Resume home meds. No [...] Center 09/12/2023 10:30 AM Chris Antoine MD [id number] [facility] 09/16/2023 11:20 AM Paula Walter DO [id number] [facility] 11/26/2023 11:00 AM [facility] [id number] [facility] 11/26/2023 11:30 AM CARDIOLOGY [facility] FAILURE [facility] [id number] [facility] Tara Rollins APRN-TECHNICAL STAFF ENGINEER documented in this encounter [facility] Work Phone: 09-11-2023 Telephone encounter Note Suzi with [facility] calling to let you know pt is due to be discharged from [facility] in the next 24 to 48 hours. They ae calling to see if you will follow and sign for HH, nursing and PT. DX chest pain. Please advise Suzi with verbal orders. Juli Figueredo LPN [facility] 09-11-2023 History of Present illness Narrative Per medical team, patient is medically appropriate for discharge today. Network Planner met with patient at bedside to review discharge plan and Medicare IMM. Patient confirmed understanding and agreement with same. Though medical team has expressed concern about patient's ability to manage patient's needs at home, patient's mobility [facility] today per PT is 17, appropriate for home-going with adequate support. Patient insists that patient's apartment is small and, though patient is visually impaired, patient can manage well at home. Patient also states that patient's son is helping patient to be put on wait list for [facility] in [place], and that patient intends to move there when an apartment becomes available. SW to send updated notes and final orders to [facility] when [facility]. Plan is for patient to discharge home today with son's support, and with new services to begin through [facility] pending confirmation of start of care. Care Transitions to follow and assist. JAG Calvillo Cardiology Inpatient Progress Note [facility] [place] ASSESSMENT AND PLAN Chest pain - Trop [...] She has a follow up with her x ray developing machine operator on Saturday. -I believe she is appropriate [...] results for input(s): ABO in the last [id number] hours. HEME/ENDO: Recent Labs 05/01/23 1041 01/04/23 [...] MD, 25 mg at 09/11/23 0808 HYDROcodone-acetaminophen ([place]) 5-325 mg per tablet 1 tablet, 1 tablet, oral, q6h PRN, FLORIN Harkins, 1 tablet at 09/11/23 0034 insulin glargine (Lantus) injection 55 Units, 55 Units, subcutaneous, Nightly, Gregorio Glez, [facility], 55 Units at 09/10/23 2041 insulin lispro [...] been made to prevent any error in car stereo installer, however minor errors may be present Gregory Gutierrez, MSN, TIRE REPAIRMAN-TECHNICAL STAFF ENGINEER, ACNPC-AG, CCRN Division of Cardiovascular Medicine [facility] Physical Therapy Physical Therapy Evaluation Patient Name: [...] drive, therefor her son takes her to [employer] and assists with shopping. groceries are delivered. [...] support) Comments/Distance (ft) 1: 38' Outcome Measures: [facility] Basic Mobility Turning from your back to [...] which affect ability to perform ADLs at [facility].Recommend skilled OT services in order to ensure safe transition home End of Session Patient Position: Alarm on, Up in chair Plan: Treatment Interventions: ADL retraining, Functional transfer training, UE strengthening/ROM, Endurance training, Equipment evaluation/education, Neuromuscular reeducation OT Frequency: 5 times per week OT Discharge Recommendations: Moderate intensity level of continued care Subjective Current Problem: 1. Chest pain, unspecified type Case Request Allergy And Immunology Chief: Left And Right Heart Cath, With LV Case Request Allergy And Immunology Chief: Left And Right Heart Cath, With LV [...] Limits Home Living: Type of Home: Apartment ([facility]) Lives With: Alone Home Layout: [...] drive, therefor her son takes her to [employer] and assists with shopping. groceries are delivered. [...] Strength: Strength Comments: KYLE 4/5 Outcome Measures: [facility] Daily Activity Putting on and taking off [...] to 48 hours in the hospital. Per OEM SALES MANAGER/Monserrat, SW consult requested due to concerns for patient to manage patient's needs at home. Per TCC/Lynn's assessment, patient no longer drives, relies on patient's son for some assistance with IADLs, and patient is losing patient's eyesight. PT eval is still pending. - 1230: Network Planner met with patient at bedside to review discharge plan. Patient asserted firmly that patient intends to return home upon discharge. Patient stated that patient has had stays in rehab facilities: [facility] where patient would never go back, as well as [place] which was, better, but I'm not going back there either. Patient is agreeable to using the same [facility] agency that patient used after [place] rehab stay, though this was 2 years ago, and patient cannot remember the name of the [facility] agency. Patient's PCP in [place] is Dr. Turpin. SW to phone same to attempt to determine name of patient's former [facility] agency. Patient also stated that patient's son has put patient's name on wait list for [facility] in [place] as patient's eyesight is failing due to [...] was able to confirm that patient utilized [facility] in the past. SW to send referral to same, per patient's request. Patient's current plan is to return home alone when medically ready with patient's son to assist, and [facility] pending acceptance, confirmation of start of care, [...] 3.4 oz) Image Results Cardiac Catheterization Procedure [facility] [address] [place] [address] [phone], Cardiovascular Catheterization Report Patient Name: VAL ERICKSON Performing Physician: [id number] Cesar Lucio MD Study Date: 09/09/2023 Verifying Physician: [id number] Lucio MD MRN/PID: [id number] [place] [employer]/Co-Scrub: Ordering Provider: [id number] MONSERRAT PRINCE Date of /Age: 11 1945 / 78 years [place]: Gender: F Fellow: Surgeon: Study: Right and Left Heart Cath Indications: VAL ERICKSON is a 79 year old female who presents with hypertension, diabetes, dyslipidemia and a chest pain assessment of typical angina. Cardiomyopathy. Heart failure. Cardiac arrest: No. Procedure Description: After infiltration with 2% Lidocaine, the right radial artery was cannulated with a modified Seldinger technique. Subsequently a 5 Indian sheath was placed in the right radial artery. Selective coronary catheterization was performed using a 5 Fr catheter(s) exchanged over a guide wire to cannulate the coronary arteries. A 5 Fr Clay catheter was used for left and right [...] Codes: Right & Left Heart Cath w/ventriculography (RHC)([facility])-02455; Moderate Sedation Services initial 15 minutes patient >5 years-[id number]; Moderate Sedation Services 1st additional 15 minutes patient >5 years-[id number] Cesar Lucio MD Performing Physician Final NM Lung Perfusion Narrative: Interpreted By: Paula Paredes, STUDY: NM LUNG PERFUSION; 09/10/2023 7:49 am INDICATION: Signs/Symptoms:chest pain. COMPARISON: None. ACCESSION NUMBER(S): [id number] ORDERING CLINICIAN: MONSERRAT PRINCE TECHNIQUE: DIVISION OF [...] acute pulmonary embolism. Images were interpreted at [facility]. Signed by: Paula Paredes 09/10/2023 7:54 AM Dictation workstation: [id number] Physical Exam Constitutional: General: She is not [...] home. Will add tramadol for moderate pain [place] for severe pain History of CHF -Echo [...] performed using a different testing methodology at [facility] than at other [facility]. Direct result comparisons should only be [...] performed using a different testing methodology at [facility] than at other [facility]. Direct result comparisons should only be [...] is performed using different testing methodology at [facility] than at other [facility]. Direct result comparisons should only be [...] is performed using different testing methodology at [facility] than at other [facility]. Direct result comparisons should only be made within the same method. HGBA1C Date/Time Value Ref Range Status 05/01/2023 10:41 AM 8.3 4.3 - 5.6 % Final Comment: Location:[address], [address] Point of care (POC) Hemoglobin A1c (HGBA1C) [...] specific diabetes management situations: The POC device tool clerk provides a normal range of 4.2% to 6.5% for the HGBA1C POC test. However, the [place] Diabetes Association guidelines indicate that patients with [...] 12.4 4.2 - 5.6 % Final Comment: Location:[facility], [address] [place] [address], [place], [address] Point of care (POC) Hemoglobin A1c (HGBA1C) [...] specific diabetes management situations: The POC device tool clerk provides a normal range of 4.2% to 6.5% for the HGBA1C POC test. However, the [place] Diabetes Association guidelines indicate that patients with [...] neuropathy, depression. She was brought to ED [facility] on 09/09/2023 complaining of chest pain. 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 Will reattempt as able.) Missed Time: Attempt [...] place to sleep or slept in a chcf (including now)? N Transportation Needs In the [...] seen in March and preferred pharmacy is [facility] long-term and [facility] short-term. Pt is independent except driving, lives alone and feels safe. Pt uses DME upright walker when out of her apartment, shower chair, grab bars and handles on toilet. Pt is diabetic and checks her blood sugar every morning and is on insulin she states she has enough supplies. She wears 3L oxygen at night [facility] She has COA meals at lunch daily [...] no needs at this time. ADOD 09/09. [facility] per nursing. CT to follow. Lynn Ramirez BSN/RN-TCC documented in this encounter [facility] Work Phone: 09-10-2023 Plan of care note [...] no episodes of chest pain this shift, [facility] 09-10-2023 Miscellaneous Notes Problem: Pain - Adult [...] Attending: * Cesar Lucio - Primary Resident/Fellow/Other Stock Broker: Surgeons and Role: * No surgeons found with a matching role * Indications: Pre-op Diagnosis * Chest pain, unspecified type [R07.9] Post-procedure diagnosis: Post-op Diagnosis * Chest pain, unspecified type [R07.9] Procedure(s): [place] [address] - UT R & L HRT CATH W/NJX L [...] chest rule out PE. Patient going to [facility] today with Dr. Rizvi. Sedation Plan ASA 2 Mallampati class: III. Risks, benefits, and alternatives discussed with patient. documented in this encounter [facility] Work Phone: 09-10-2023 Nurse Note COPD Education [...] Does not have nay issues with COPD/breathing. [facility] 09-09-2023 Plan of care note The patient's goals for the shift include no sob The clinical goals for the shift include Will not c/o CP; maintain comfort Over the shift, the patient did not make progress toward the following goals. Barriers to progression include chf. Recommendations to address these barriers include heart cath. [facility] 09-09-2023 Hospital Discharge instructions Tara Rollins APRN-TECHNICAL STAFF ENGINEER - 09/09/2023 2:04 PM EDT Images from [...] for any reason without talking to your inspector fabric first. If any of these were prescribed, [...] have any concerns, you may contact the Allergy And Immunology Chief or if any of these symptoms become excessive, contact your inspector fabric or go to the emergency room. OTHER [...] DO NOT have an appointment with your inspector fabric within 2-4 weeks following your procedure, please [...] 4. Eat plenty of fiber!! The standard [place] diet has very low levels of daily [...] counseling and/or support groups such as the [facility] that is a free, confidential, 08/10, 102-fbc-l-year treatment referral and information service: 5-187-949-DJDS (4925) Some helpful hints include: Avoidance. Stay away [...] achieve your goal. Discharge: Discharge home with [facility] Resume home meds Follow-up with PCP in 2 weeks Keep existing appointment with Dr. Antoine for tomorrow Follow-up with nephrology on Saturday Thank you for allowing [facility] to participate in your care. Return to the ER if symptoms worsen documented in this encounter [facility] Work Phone: 09-09-2023 Note Formatting of this n ote is different from the original. Physician Transition of Care Summary Invasive Cardiovascular Lab Procedure Date: 09/09/2023 Attending: * Cesar Lucio - Primary Resident/Fellow/Other Stock Broker: Surgeons and Role: * No surgeons found with a matching role * Indications: Pre-op Diagnosis * Chest pain, unspecified type [R07.9] Post-procedure diagnosis: Post-op Diagnosis * Chest pain, unspecified type [R07.9] Procedure(s): [place] [address] - UT R & L HRT CATH W/NJX L [...] by: Cesar Lucio MD, 09/09/2023 1:32 PM [facility] Work Phone: 09-09-2023 Note Formatting of this n ote might be different from the original. Patient was ambulated with RT. Patient SpO2 dropped to upper 70s and patient felt very short of breath. Patient does have history of COPD. Will add D-dimer if positive CT chest rule out PE. Patient going to [facility] today with Dr. Rizvi. [facility] Work Phone: 09-09-2023 Note Formatting of this n ote might be different from the original. Sedation Plan ASA 2 Mallampati class: III. Risks, benefits, and alternatives discussed with patient. [facility] Work Phone: 09-09-2023 Attending History and physical [...] neuropathy, depression. She was brought to ED [facility] on 09/09/2023 complaining of chest pain. Patient [...] performed using a different testing methodology at [facility] than at other [facility]. Direct result comparisons should only be [...] performed using a different testing methodology at [facility] than at other [facility]. Direct result comparisons should only be [...] is performed using different testing methodology at [facility] than at [facility]. Direct result comparisons should only be made [...] is performed using different testing methodology at [facility] than at [facility]. Direct result comparisons should only be made within the same method. POCT Hemoglobin A1C Date/Time Value Ref Range Status 05/01/2023 10:41 AM 8.3 (A) 4.3 - 5.6 % Final Comment: Location:[facility], [address] [place] [address], [address] Point of care (POC) Hemoglobin A1c (HGBA1C) [...] specific diabetes management situations: The POC device tool clerk provides a normal range of 4.2% to 6.5% for the HGBA1C POC test. However, the [place] Diabetes Association guidelines indicate that patients with [...] (A) 4.2 - 5.6 % Final Comment: Location:[facility], [facility], [place], [address] Point of care (POC) Hemoglobin A1c (HGBA1C) [...] specific diabetes management situations: The POC device tool clerk provides a normal range of 4.2% to 6.5% for the HGBA1C POC test. However, the [place] Diabetes Association guidelines indicate that patients with [...] subcutaneous, See admin instructions, EVERY 28 DAYS qtepgdjqtlc-gcrfvwghc-vacntlxq (Trelegy Ellipta) 100-62.5-25 mcg blister with device [...] neuropathy, depression. She was brought to ED [facility] on 09/09/2023 complaining of chest pain. Patient [...] and No Intubation Cesar Lucio MD Cardiology [facility] Work Phone: 09-09-2023 History and physical note [...] neuropathy, depression. She was brought to ED [facility] on 09/09/2023 complaining of chest pain. Patient [...] performed using a different testing methodology at [facility] than at [facility]. Direct result comparisons should only be [...] performed using a different testing methodology at [facility] than at other [facility]. Direct result comparisons should only be [...] is performed using different testing methodology at [facility] than at other [facility]. Direct result comparisons should only be [...] is performed using different testing methodology at [facility] than at other [facility]. Direct result comparisons should only be made within the same method. POCT Hemoglobin A1C Date/Time Value Ref Range Status 05/01/2023 10:41 AM 8.3 (A) 4.3 - 5.6 % Final Comment: Location:[address], [address] Point of care (POC) Hemoglobin A1c (HGBA1C) [...] specific diabetes management situations: The POC device tool clerk provides a normal range of 4.2% to 6.5% for the HGBA1C POC test. However, the [place] Diabetes Association guidelines indicate that patients with [...] (A) 4.2 - 5.6 % Final Comment: Location:[facility], [address] [facility], [place], [address] Point of care (POC) Hemoglobin A1c (HGBA1C) [...] specific diabetes management situations: The POC device tool clerk provides a normal range of 4.2% to 6.5% for the HGBA1C POC test. However, the [place] Diabetes Association guidelines indicate that patients with [...] subcutaneous, See admin instructions, EVERY 28 DAYS ttlzejxyemf-vusttqaio-iozzfvam (Trelegy Ellipta) 100-62.5-25 mcg blister with device [...] neuropathy, depression. She was brought to ED [facility] on 09/09/2023 complaining of chest pain. Patient [...] Rate 95 BPM Atrial Rate 95 BPM UT Interval 218 ms QRS Duration 132 ms QT Interval 390 ms QTC Calculation(Bazett) 490 ms P [place] 63 degrees R [place] -38 degrees T [place] 145 degrees QRS Count 16 beats Q [...] Rate 88 BPM Atrial Rate 88 BPM UT Interval 244 ms QRS Duration 130 ms QT Interval 400 ms QTC Calculation(Bazett) 484 ms P [place] 60 degrees R [place] -50 degrees T [place] 197 degrees QRS Count 14 beats Q [...] when medically stable documented in this encounter [facility] Work Phone: 09-09-2023 Consult note Associated Order [...] neuropathy, depression. She was brought to ED [facility] on 09/09/2023 complaining of chest pain. Patient [...] performed using a different testing methodology at [facility] than at [facility]. Direct result comparisons should only be [...] performed using a different testing methodology at [facility] than at other [facility]. Direct result comparisons should only be [...] is performed using different testing methodology at [facility] than at other [facility]. Direct result comparisons should only be [...] is performed using different testing methodology at [facility] than at other [facility]. Direct result comparisons should only be made within the same method. POCT Hemoglobin A1C Date/Time Value Ref Range Status 05/01/2023 10:41 AM 8.3 (A) 4.3 - 5.6 % Final Comment: Location:[address], [address] Point of care (POC) Hemoglobin A1c (HGBA1C) [...] specific diabetes management situations: The POC device tool clerk provides a normal range of 4.2% to 6.5% for the HGBA1C POC test. However, the [place] Diabetes Association guidelines indicate that patients with [...] (A) 4.2 - 5.6 % Final Comment: Location:[facility], [address] [place] [address], [place], [address] Point of care (POC) Hemoglobin A1c (HGBA1C) [...] specific diabetes management situations: The POC device tool clerk provides a normal range of 4.2% to 6.5% for the HGBA1C POC test. However, the [place] Diabetes Association guidelines indicate that patients with [...] subcutaneous, See admin instructions, EVERY 28 DAYS fctdeghbqef-lilpwyrle-mflmqkbo (Trelegy Ellipta) 100-62.5-25 mcg blister with device [...] neuropathy, depression. She was brought to ED [facility] on 09/09/2023 complaining of chest pain. Patient [...] and No Intubation Cesar Lucio MD Cardiology [facility] Work Phone: 09-09-2023 Consult note Associated Order (s): Inpatient consult to Cardiology Inpatient consult to Cardiology Consult performed by: Cesar Lucio MD Consult ordered by: Monserrat Prince, DAHLIA-JERYR Reason for consult: chest pain History Of Present Illness: Mrs. Val Erickson is a 78 y.o. non-smoker diabetic female being consulted by the Cardiology team for chest pain. Sees Dr. Antoine in Cardiology clinic. Past medical history significant for S/P AICD, CHF, hypertension, diabetes, hyperlipidemia, CKD stage IV, neuropathy, depression. She was brought to ED [facility] on 09/09/2023 complaining of chest pain. Patient [...] performed using a different testing methodology at [facility] than at [facility]. Direct result comparisons should only be [...] performed using a different testing methodology at [facility] than at other [facility]. Direct result comparisons should only be [...] is performed using different testing methodology at [facility] than at other [facility]. Direct result comparisons should only be [...] is performed using different testing methodology at [facility] than at [facility]. Direct result comparisons should only be made within the same method. POCT Hemoglobin A1C Date/Time Value Ref Range Status 05/01/2023 10:41 AM 8.3 (A) 4.3 - 5.6 % Final Comment: Location:[address], [address] Point of care (POC) Hemoglobin A1c (HGBA1C) [...] specific diabetes management situations: The POC device tool clerk provides a normal range of 4.2% to 6.5% for the HGBA1C POC test. However, the [place] Diabetes Association guidelines indicate that patients with [...] (A) 4.2 - 5.6 % Final Comment: Location:[facility], [address] [place] [address], [place], [address] Point of care (POC) Hemoglobin A1c (HGBA1C) [...] specific diabetes management situations: The POC device tool clerk provides a normal range of 4.2% to 6.5% for the HGBA1C POC test. However, the [place] Diabetes [employer] guidelines indicate that patients with [...] subcutaneous, See admin instructions, EVERY 28 DAYS fpowtpsxfno-jbpjhhytm-zxogurrm (Trelegy Ellipta) 100-62.5-25 mcg blister with device [...] neuropathy, depression. She was brought to ED [facility] on 09/09/2023 complaining of chest pain. Patient [...] Lucio MD Cardiology documented in this encounter [facility] Work Phone: 09-09-2023 History and physical note [...] Rate 95 BPM Atrial Rate 95 BPM UT Interval 218 ms QRS Duration 132 ms QT Interval 390 ms QTC Calculation(Bazett) 490 ms P [place] 63 degrees R [place] -38 degrees T [place] 145 degrees QRS Count 16 beats Q [...] Rate 88 BPM Atrial Rate 88 BPM UT Interval 244 ms QRS Duration 130 ms QT Interval 400 ms QTC Calculation(Bazett) 484 ms P [place] 60 degrees R [place] -50 degrees T [place] 197 degrees QRS Count 14 beats Q [...] 24 to 48 hours when medically stable [facility] Work Phone: 09-09-2023 Nurse Note Pt admitted to bed 319 from ED. Pt ambulated to bathroom with one assist. Pt is a little wobbly. [facility] Work Phone: 09-09-2023 Emergency department Note 78-year-old [...] performed using a different testing methodology at [facility] than at other [facility]. Direct result comparisons should only be [...] performed using a different testing methodology at [facility] than at other [facility]. Direct result comparisons should only be made within the same method. TROPONIN SERIES- (INITIAL, 1 HR) Narrative: The following orders were created for panel order Troponin I Series, High Sensitivity (0, 1 HR). Procedure Abnormality Status --------- ------ Troponin I, High Sensiti...[[id number]] Abnormal Final result Troponin, High Sensitivi...[[id number]] Abnormal Final result Please view results for these tests on the individual orders. XR chest 1 view Final Result 1. No evidence of acute cardiopulmonary process. Stable cardiomegaly. Signed by: Latrell Bal 09/09/2023 5:54 AM Dictation workstation: [id number] Procedures Medical Decision Making 78-year-old female presents [...] Menendez MD 09/09/[address] documented in this encounter [facility] Work Phone: 09-09-2023 Physician Emergency department Note [...] performed using a different testing methodology at [facility] than at other [facility]. Direct result comparisons should only be [...] performed using a different testing methodology at [facility] than at other [facility]. Direct result comparisons should only be made within the same method. TROPONIN SERIES- (INITIAL, 1 HR) Narrative: The following orders were created for panel order Troponin I Series, High Sensitivity (0, 1 HR). Procedure Abnormality Status --------- ------ Troponin I, High Sensiti...[[id number]] Abnormal Final result Troponin, High Sensitivi...[[id number]] Abnormal Final result Please view results for these tests on the individual orders. XR chest 1 view Final Result 1. No evidence of acute cardiopulmonary process. Stable cardiomegaly. Signed by: Latrell Bal 09/09/2023 5:54 AM Dictation workstation: [id number] Procedures Medical Decision Making 78-year-old female presents [...] unspecified type Tony Menendez MD 09/09/23 0715 [facility] Work Phone: 09-04-2023 History of Present illness [...] daily. Per Dr. Yulia Antoine, cardiology. Insulin [place], Disposable, 29 gauge x 1/2 Use once daily as directed. Dx E11.29 100 Each 4 klocnvnkptq-zbveslgci-nhseonzq (TRELEGY ELLIPTA) 100-62.5-25 mcg inhalation powder Inhale 1 Puff as instructed once daily. docusate sodium (COLACE) 100 mg capsule Take 1 capsule by mouth as needed. melatonin 5 mg tablet Take 2 tablets by mouth. senna (SENOKOT) 8.6 mg tab Take 1 tablet by mouth as needed. Vit C-Vit R-Dzktvy-IoOe-Lutein (PRESERVISION LUTEIN) 226 mg-200 unit -5 mg-0.8 [...] patient/family/caregiver. Patient reviewed and examined with the instructor adjunct pharmacy technician who interviewed the patient alone. Arnold elements of history confirmed during office visit. The progress note reflects my input and comments. My additions to the progress note are underlined. Tessa Brock PharmD, [facility] Primary [facility] Clinical [employer] documented in this encounter [facility] 09-04-2023 History of Present illness Narrative CD [...] to talk about today? No Based on nursing professor, the following disposition is advised: Other Call Dispositions No action needed Program Disposition Patient dispositioned from Program today: No Tara Estrella RN September 04, 2023 12:54 PM documented in this encounter [facility] 08-27-2023 History of Present illness Narrative [facility] Telephonic Outreach Provider Action/FYI Contact made with patient: No, Left message Annalisa Stephen RN August 27, 2023 1:53 PM documented in this encounter [facility] 08-27-2023 History of Present illness Narrative [facility] Telephonic Outreach Provider Action/FYI Contact made with patient: No, Left message Annalisa Stephen RN August 27, 2023 1:48 PM documented in this encounter [facility] 08-13-2023 History of Present illness Narrative [facility] [facility] Telephonic Outreach Provider Action/FYI I was [...] to talk about today? No Based on nursing professor, the following disposition is advised: Other Call Dispositions No action needed Program Disposition Patient dispositioned from Program today: No Annalisa Stephen RN August 13, 2023 1:06 PM documented in this encounter [facility] 07-31-2023 History of Present illness Narrative Primary Care Pharmacy Visit CC (Reason for Consult): (E11.22, N18.4, Z79.4) Type 2 diabetes mellitus with stage 4 chronic kidney disease, with long-term current use of insulin ([facility]) (primary encounter diagnosis) Goal: A1c < 7% [...] daily. Per Dr. Yulia Antoine, cardiology. Insulin [place], Disposable, 29 gauge x 1/2 Use once daily as directed. Dx E11.29 100 Each 4 bquqygufiri-ogedptiou-zmwkiaao (TRELEGY ELLIPTA) 100-62.5-25 mcg inhalation powder Inhale 1 Puff as instructed once daily. docusate sodium (COLACE) 100 mg capsule Take 1 capsule by mouth as needed. melatonin 5 mg tablet Take 2 tablets by mouth. senna (SENOKOT) 8.6 mg tab Take 1 tablet by mouth as needed. Vit C-Vit T-Hymsgf-ReVn-Lutein (PRESERVISION LUTEIN) 226 mg-200 unit -5 mg-0.8 [...] disease, with long-term current use of insulin ([facility]) - ICD9: 250.40, 585.4, V58.67, [...] Chela Dooley RPh Patient reviewed with the manager of pharmacy who interviewed the patient alone. Arnold elements of history confirmed during appointment/call. The progress note, assessment, and plan reflect my input and comments. My additions to the progress note are underlined. Tessa Brock PharmD Primary Care Clinical [employer] documented in this encounter [facility] 07-29-2023 History of Present illness Narrative CDM [...] my food. My son brought me some [employer] food and the one day a deli [...] to talk about today? No Based on nursing professor, the following disposition is advised: Other Call Dispositions No action needed Program Disposition Patient dispositioned from Program today: No Annalisa Stephen RN July 29, 2023 10:47 AM documented in this encounter [facility] 07-25-2023 History of Present illness Narrative [facility] Path Telephonic Outreach Provider Action/FYI Contact made with patient: No, Left message Annalisa Stephen RN July 25, 2023 11:32 AM documented in this encounter [facility] 07-17-2023 Telephone encounter Note Form put into shredding. Jesenia Glasgow LPN [facility] 07-17-2023 Miscellaneous Notes Form put into shredding. Jesenia Glasgow LPN patient does not use this company! Eneida Johnston LPN Received form from [email or web address], Physicians Order for Patient Testing Supplies. Left message does Patient use [employer]. Jesenia Glasgow LPN documented in this encounter [facility] 07-17-2023 Telephone encounter Note patient does not use this company! Eneida Johnston LPN [facility] Work Phone: 07-17-2023 Telephone encounter Note Received form from [email or web address], Physicians Order for Patient Testing Supplies. Left message does Patient use [employer]. Jesenia Glasgow LPN [facility] 07-16-2023 Telephone encounter Note Patient has been [...] Scripts. Please advise. Thank you. Lou Rodriguez. [facility] 07-16-2023 Miscellaneous Notes Patient has been identified [...] you. Lou Rodriguez. documented in this encounter [facility] 07-12-2023 History of Present illness Narrative [facility] Path Telephonic Outreach Provider Action/FYI My breathing [...] to talk about today? No Based on nursing professor, the following disposition is advised: Other Call Dispositions No action needed Program Disposition Patient dispositioned from Program today: No Annalisa Stephen RN July 12, 2023 3:14 PM [facility] Telephonic Outreach Provider Action/DAVIDI Pt reminded to utilize the [facility] phone number and services available for questions/concerns/needs. Contact made with patient: No, Left message Annalisa Stephen RN July 12, 2023 12:50 PM documented in this encounter [facility] 07-10-2023 History of Present illness Narrative [facility] Telephonic Outreach Provider Kwame/NIKKY Those [...] more tablets Saturday when we go to [place]. I did not weigh myself today. Last [...] to talk about today? Yes Based on nursing professor, the following disposition is advised: Other Call Dispositions No action needed Program Disposition Patient dispositioned from Program today: No Annalisa Stephen RN July 10, 2023 12:40 PM documented in this encounter [facility] 07-03-2023 Miscellaneous Notes Patient called and rescheduled for same day at 3:30p Called patient for scheduled phone visit; unable to reach after multiple attempts. Left VM with phone number for rescheduling. Tessa Brock PharmD Primary Care Clinical [employer] documented in this encounter [facility] 07-03-2023 History of Present illness Narrative Primary Care Pharmacy Visit CC (Reason for Consult): (E11.22, N18.4, Z79.4) Type 2 diabetes mellitus with stage 4 chronic kidney disease, with long-term current use of insulin ([facility]) (primary encounter diagnosis) Goal(s): A1c <7% (per [...] daily. Per Dr. Yulia Antoine, cardiology. Insulin [place], Disposable, 29 gauge x 1/2 Use once daily as directed. Dx E11.29 100 Each 4 sczaakzhgcb-edwgkrrgc-nhladbpo (TRELEGY ELLIPTA) 100-62.5-25 mcg inhalation powder Inhale 1 Puff as instructed once daily. docusate sodium (COLACE) 100 mg capsule Take 1 capsule by mouth as needed. melatonin 5 mg tablet Take 2 tablets by mouth. senna (SENOKOT) 8.6 mg tab Take 1 tablet by mouth as needed. Vit C-Vit P-Lrzezt-HvMg-Lutein (PRESERVISION LUTEIN) 226 mg-200 unit -5 mg-0.8 [...] 07/31/23 Tessa Brock, Janessa Primary Care Clinical [employer] documented in this encounter [facility] 06-26-2023 Instructions Kang Vickers II, OD - [...] its relevant components. documented in this encounter [facility] 06-26-2023 History of Present illness Narrative Assessment [...] its relevant components. documented in this encounter [facility] 06-11-2023 History of Present illness Narrative [facility] Path Telephonic Outreach Provider Action/FYI Contact made with patient: No, Left message Annalisa Stephen RN June 11, 2023 1:30 PM documented in this encounter [facility] 06-10-2023 Miscellaneous Notes PharmD returned call to patient. Said she gets meds through [facility], can't get in Mounjaro 7.5mg pens because of backorder. Said she gave her last shot on Saturday, 06/06. She lives in [place], only 1 small pharmacy nearby ([facility] Says pharmacy can't get any Mounjaro in stock. Son has a car, could drive to [place] or [place] pharmacy IF NEEDED but not ideal. Patient [...] Juli Figueredo LPN documented in this encounter [facility] 06-05-2023 Miscellaneous Notes Patient seen by PharmJessie [...] accordingly. Tessa Brock PharmD Primary Care Clinical [employer] documented in this encounter [facility] 06-05-2023 History of Present illness Narrative Primary Care Pharmacy Visit CC (Reason for Consult): (E11.22, N18.4, Z79.4) Type 2 diabetes mellitus with stage 4 chronic kidney disease, with long-term current use of insulin ([facility]) (primary encounter diagnosis) Goal: A1c<7% (per consult) [...] mention of complication, not stated as uncontrolled ([facility]) Unspecified essential hypertension ALLERGIES Allergen Reactions Levaquin [Levofloxa* itching,diarrhea,dausea,burning skin Seasonal Allergies Other: See Comments Sinus Sulfa (Sulfonamide * rash and hives MEDICATIONS: Adherence: denies missed doses. Pharmacy: [facility] Rx coverage: MEDICARE / Plan: MEDICARE A [...] daily. Per Dr. Yulia Antoine, cardiology. Insulin [place], Disposable, 29 gauge x 1/2 Use once daily as directed. Dx E11.29 100 Each 4 gepadzxymtq-fvwvctkud-aqezzshj (TRELEGY ELLIPTA) 100-62.5-25 mcg inhalation powder Inhale 1 Puff as instructed once daily. docusate sodium (COLACE) 100 mg capsule Take 1 capsule by mouth as needed. melatonin 5 mg tablet Take 2 tablets by mouth. senna (SENOKOT) 8.6 mg tab Take 1 tablet by mouth as needed. Vit C-Vit R-Cmlbkj-ZvQn-Lutein (PRESERVISION LUTEIN) 226 mg-200 unit -5 mg-0.8 mg cap Take 1 capsule by mouth once daily. COMPOUNDED PRESCRIPTION Take 1 tablet by mouth twice daily. Plexus Bio-5 (Probiotic) blood sugar diagnostic (Paradise CornerTOUCH ULTRA TEST) test strip Test blood sugar(s) [...] Neha Espinoza RPh Patient reviewed with the manager of pharmacy who interviewed the patient alone. Arnold elements of history confirmed during appointment/call. The progress note, assessment, and plan reflect my input and comments. My additions to the progress note are underlined. Tessa Brock PharmD Primary Care Clinical [employer] documented in this encounter [facility] 05-22-2023 History of Present illness Narrative [facility] Path Telephonic Outreach Provider Action/FYI [...] to talk about today? No Based on nursing professor, the following disposition is advised: Other Call Dispositions No action needed Program Disposition Patient dispositioned from Program today: No Annalisa Stephen RN May 22, 2023 12:30 PM Program Disposition Patient dispositioned from Program today: No Annalisa Stephen RN May 22, 2023 12:30 PM documented in this encounter [facility] 05-15-2023 History of Present illness Narrative [facility] Path Telephonic Outreach Provider Action/FYI I [...] to talk about today? No Based on nursing professor, the following disposition is advised: Other Call Dispositions No action needed Program Disposition Patient dispositioned from Program today: No Annalisa Stephen RN May 15, 2023 10:01 AM Program Disposition Patient dispositioned from Program today: No Annalisa Stephen RN May 15, 2023 10:01 AM documented in this encounter [facility] 05-14-2023 Miscellaneous Notes Called and spoke with [...] 06/05/23. Tessa Brock PharmD Primary Care Clinical [employer] [facility] says [facility] [...] Dhara Zeng LPN documented in this encounter [facility] 05-14-2023 History of Present illness Narrative [facility] Telephonic Outreach Provider Action/FYI Contact made with patient: No, Left message Annalisa Stephen RN May 14, 2023 12:12 PM documented in this encounter [facility] 05-08-2023 Miscellaneous Notes Patient seen by PharmD [...] accordingly. Tessa Brock PharmD Primary Care Clinical [employer] documented in this encounter [facility] 05-08-2023 History of Present illness Narrative Primary Care Pharmacy Visit CC (Reason for Consult): (E11.22, N18.4, Z79.4) Type 2 diabetes mellitus with stage 4 chronic kidney disease, with long-term current use of insulin ([facility]) (primary encounter diagnosis) Goal(s): A1c <7% (per [...] daily. Per Dr. Yulia Antoine, cardiology. Insulin [place], Disposable, 29 gauge x 1/2 Use once daily as directed. Dx E11.29 100 Each 4 gacijwktrpu-wiaswsvrz-hlhmadqw (TRELEGY ELLIPTA) 100-62.5-25 mcg inhalation powder Inhale 1 Puff as instructed once daily. docusate sodium (COLACE) 100 mg capsule Take 1 capsule by mouth as needed. melatonin 5 mg tablet Take 2 tablets by mouth. senna (SENOKOT) 8.6 mg tab Take 1 tablet by mouth as needed. Vit C-Vit G-Mqobwm-BaZm-Lutein (PRESERVISION LUTEIN) 226 mg-200 unit -5 mg-0.8 mg cap Take 1 capsule by mouth once daily. COMPOUNDED PRESCRIPTION Take 1 tablet by mouth twice daily. Plexus Bio-5 (Probiotic) blood sugar diagnostic (Paradise CornerTOUCH ULTRA TEST) test strip Test blood sugar(s) [...] 06/05/23 Tessa Brock PharmD Primary Care Clinical [employer] The majority of the pharmacy visit (> 50%) was spent counseling and/or coordinating care for the patient. interaction: telephonic time was 10 minutes. documented in this encounter [facility] 05-03-2023 History of Present illness Narrative CDM [...] to talk about today? Yes Based on nursing professor, the following disposition is advised: Other Call Dispositions No action needed Paz Gonzalez RN May 03, 2023 11:06 AM CDM ENROLLMENT Provider Action / FYI: Contact Made with Patient: No, left a message. Paz Gonzalez RN May 02, 2023 4:01 PM documented in this encounter [facility] 05-01-2023 Instructions Neel Turpin MD - 05/01/2023 10:44 AM EST FASTING LABS IN AUGUST. YOUR A1C IS 8.3% TODAY. documented in this encounter [facility] 05-01-2023 History of Present illness Narrative This note was created using [employer]. Subjective Val Erickson is a 78 year [...] daily. Per Dr. Yulia Antoine, cardiology. Insulin [place], Disposable, 29 gauge x 1/2 Use once daily as directed. Dx E11.29 jgxujxvwnzj-qbwyzfcsf-shdyyeyw (TRELEGY ELLIPTA) 100-62.5-25 mcg inhalation powder Inhale 1 Puff as instructed once daily. docusate sodium (COLACE) 100 mg capsule Take 1 capsule by mouth as needed. melatonin 5 mg tablet Take 2 tablets by mouth. senna (SENOKOT) 8.6 mg tab Take 1 tablet by mouth as needed. Vit C-Vit G-Htfyxn-WrSm-Lutein (PRESERVISION LUTEIN) 226 mg-200 unit -5 mg-0.8 [...] Neel Turpin MD documented in this encounter [facility] 04-26-2023 History of Present illness Narrative [facility] Hub Review Provider Action / FYI: QAE - No exclusions. Added to CDM enrollment shared list. Upon review of patient chart, does patient meet exclusion criteria? No CDM documented in this encounter [facility] 04-23-2023 Miscellaneous Notes [facility] called to see if providers office had [...] genetic testing done. documented in this encounter [facility] 04-15-2023 History of Present illness Narrative Subjective [...] a humidifier for her oxygen from her [employer] company. She can also use a humidifier [...] months. This note was transcribed using the [email or web address] Dictation system. There may be grammatical, punctuation, or verbiage errors that occur with voice recognition programs. Paula Walter DO 04/15/23 12:01 PM documented in this encounter [facility] Work Phone: 02-14-2023 Miscellaneous Notes Patient's son returned call. Notified of update. No further questions Sent [facility] to [facility]. Call attempt to reach patient and Rd; unable to reach. Left VM with update and advised to contact office if unable to get from [facility]. Tessa Brock, PharmD Primary Care Clinical [employer] Rd, Pt's son calling to let you [...] Juli Figueredo LPN documented in this encounter [facility] 02-14-2023 History of Present illness Narrative Images [...] over from when she was in the [employer] and was using but has now run [...] daily. Per Dr. Yulia Antoine, cardiology. Insulin [place], Disposable, 29 gauge x 1/2 Use once daily as directed. Dx E11.29 100 Each 4 vgxqoosqjdi-hwsdpblxu-xpcqohvy (TRELEGY ELLIPTA) 100-62.5-25 mcg inhalation powder Inhale [...] capsule by mouth once daily. Vit C-Vit Z-Dylpcj-MtEv-Lutein (PRESERVISION LUTEIN) 226 mg-200 unit -5 mg-0.8 [...] disease, with long-term current use of insulin ([facility]) - ICD9: 250.40, 585.4, V58.67, [...] scheduled Next PharmD visit: 03/13/23 via phone Tesas Brock PharmD Primary Care Clinical [employer] The majority of the pharmacy visit (> 50%) was spent counseling and/or coordinating care for the patient. interaction: face to face time was 55 minutes. documented in this encounter [facility] 02-14-2023 Instructions Tessa Brock RPh - 02/14/2023 9:00 AM EST Increase Lantus to 60 units once daily Start Trulicity 0.75 mg once weekly documented in this encounter [facility] 02-11-2023 Miscellaneous Notes Patient has been identified [...] Viktoria Johnston RN. documented in this encounter [facility] 01-04-2023 Instructions Kacy Berumen APRN.CNP - 01/04/2023 10:36 AM EDT Increase Lantus to 55 units at bedtime documented in this encounter [facility] 01-04-2023 History of Present illness Narrative CC: [...] EXTRACTION HX 2016 both eyes catacts removed, [facility] CHOLECYSTECTOMY 1970 COLONOSCOPY FLX DX [...] daily. Per Dr. Yulia Antoine, cardiology. Insulin [place], Disposable, 29 gauge x 1/2 Use once [...] capsule by mouth once daily. Vit C-Vit G-Fdrvzj-KwMn-Lutein (PRESERVISION LUTEIN) 226 mg-200 unit -5 mg-0.8 mg cap Take 1 capsule by mouth once daily. blood sugar diagnostic (Paradise CornerTOUCH ULTRA TEST) test strip Test blood sugar(s) 2 times daily. (Patient taking differently: 1 Each. Test blood sugar(s) 2 times daily.) Lancets (FREESTYLE LANCETS) Misc Misc Test twice daily 250.02 nbsejaymgwx-sjczfomjs-kbszhjkh (TRELEGY ELLIPTA) 100-62.5-25 mcg inhalation powder Inhale [...] Kacy Berumen APRN.CNP documented in this encounter [facility] 12-28-2022 History of Present illness Narrative Cardiology Subsequent Encounter Clinic Note Name: Val Erickson : 1945 CC: HFrEF Active Issues: 77-year-old female with a medical history of diabetes, neuropathy, hypertension, hyperlipidemia who was first seen at [facility] January 29, 2022 with shortness of breath [...] baseline creatinine 1.9-2.2. 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 Echocardiogram January 2022: CONCLUSIONS: 1. Left ventricular systolic function is severely decreased with a 30-35% estimated ejection fraction. 2. There is global hypokinesis of the left ventricle with minor regional variations. 3. Moderate mitral valve regurgitation. 4. No other echocardiograms available for comparison Past Medical History Past Medical History: Diagnosis Date CHF (congestive heart failure) ([facility]) COPD (chronic obstructive pulmonary disease) ([facility]) Past Surgical History Past Surgical History: Procedure [...] hyperlipidemia who was first seen at [facility] January 29, 2022 with shortness of breath [...] Antoine MD Advanced Heart Failure/Transplant Cardiology Cardio-Oncology [facility] documented in this encounter [facility] Work Phone: 12-07-2022 History of Present illness Narrative Patient checked in with 4 minutes left of appointment time. She declined to wait or schedule for later time today. Left without being seen Kacy Berumen APRN.JERRY documented in this encounter [facility] 11-28-2022 Miscellaneous Notes Daisy Calzada- terell [facility] pharmacist is asking for clarification on instructions for the furosemide 20 mg take an extra 20 mg daily as needed. Please phone [phone] with clarification. Reference # [id number]. Asking provider to phone with clarification within 24 hours. documented in this encounter [facility] 11-21-2022 Miscellaneous Notes Last office visit: 08/15/22 [...] RX is approved and sent to the [facility] pharmacy. Lou Rodriguez documented in this encounter [facility] 10-04-2022 Note Send Summary: Discharge Summary Providers: [...] at Discharge: .Home Vital Signs: T PRBPMAPSpO2 [id number]/832868% Date/Time10/04 12: 12: 4: 12: 12: 12:51 Range(35.6C - 36.9C ) (88 - 95 ) (16 - 18 ) (116 - 137 )/ (58 - 72 ) (82 - 99 ) (91% - 98% ) Highest temp of 36.9 C was recorded at 10/03 19:54 Date: Weight/Scale Type:Height: 03-Oct-2022 18:56726 kg / .9 cm Physical Exam: Constitutional: [...] 130ms. The patient presented yesterday, 10/03/22 for GLUE MAKER-D insertion with Dr. Browne for primary prevention. [...] 10/11/22 at 11:00 AM as scheduled [facility] [address] [place] [address] - . Discharge Medications: Home Medication calcitriol 0.5 mcg oral capsule - 1 cap(s) orally once a day Colace 100 mg oral capsule - 1 cap(s) orally once a day furosemide 20 mg oral tablet - 1 tab(s) orally once a da (more content not included)... [facility] 10-04-2022 Hospital course Narrative Send Summary: Discharge Summary Providers: Provider Role Provider Name Attending Claus Browne Referring Claus Browne Primary Neel Tuprin Note Recipients: Discharge: Summary: Admission Date: .03-Oct-2022 [...] 130ms. The patient presented yesterday, 10/03/22 for GLUE MAKER-D insertion with Dr. Browne for primary prevention. [...] 10/11/22 at 11:00 AM as scheduled - [facility], [address] [place] [address] - . Discharge Medications: Home Medication calcitriol [...] discharge: Full Code Electronic Signatures: Aldo Diaz (TIRE REPAIRMAN-TECHNICAL STAFF ENGINEER) (Signed 04-Oct-2022 13:29) Authored: Send Summary, Summary Content, Ongoing Care, DNR Status, Note Completion Last Updated: 04-Oct-2022 13:29 by Aldo Diaz (TIRE REPAIRMAN-TECHNICAL STAFF ENGINEER) documented in this encounter [facility] Work Phone: 10-03-2022 Note Pre-procedure Verifi cation [...] Findings: grossly normal anatomy Procedure performed by: fl Stock Broker(s): none Estimated Blood Loss (mL): none Specimen: [...] using a Seldinger technique using a 4 Indian micropuncture kit. A regular J-wire was introduced [...] a subcuticular uninterrupt (more content not included)... [facility] 10-03-2022 Note History of Present I llness: History Present Illness Reason for surgery: HFrEF, LBBB HPI: This is a 77 year old female with a PMH significant for DM, HTN, CKD stage 3, HLD and HFrEF. The patient has severely decreased LVEF of 23%, MUGA scan June 2022. She also has a LBBB of 130ms. The patient presents today, 10/03/22 for GLUE MAKER-D insertion with Dr. Browne for primary prevention. [...] Reviewed: yes Impression/Procedure: Impression and Planned Procedure: GLUE MAKER-D device insertion Review of Systems: Review of [...] understood the risks. Electronic Signatures: Aldo Diaz (TIRE REPAIRMAN-TECHNICAL STAFF ENGINEER) (Signed 03-Oct-2022 12:28) Authored: History of Present Illness, Allergies, Home Medication Review, Impression/Procedure, Review of Systems, Physical Exam, Consent, Note Completion Claus Browne) (Signed 03-Oct-2022 13:28) Co-Signer: History of Present Illness, Allergies, Home Medication Review, Impression/Procedure, Review of Systems, Physical Exam, Consent, Note Completion Last Updated: 03-Oct-2022 13:28 by Claus Browne) [facility] 10-03-2022 History and physical note Images from [...] 130ms. The patient presents today, 10/03/22 for GLUE MAKER-D insertion with Dr. Browne for primary prevention. [...] Reviewed: yes Impression/Procedure: Impression and Planned Procedure: GLUE MAKER-D device insertion Review of Systems: Review of [...] understood the risks. Electronic Signatures: Aldo Diaz (TIRE REPAIRMAN-TECHNICAL STAFF ENGINEER) (Signed 03-Oct-2022 12:28) Authored: History of Present Illness, Allergies, Home Medication Review, Impression/Procedure, Review of Systems, Physical Exam, Consent, Note Completion Claus Browne) (Signed 03-Oct-2022 13:28) Co-Signer: History of Present Illness, Allergies, Home Medication Review, Impression/Procedure, Review of Systems, Physical Exam, Consent, Note Completion Last Updated: 03-Oct-2022 13:28 by Claus Browne) [facility] Work Phone: 10-03-2022 History and physical note [...] 130ms. The patient presents today, 10/03/22 for GLUE MAKER-D insertion with Dr. Browne for primary prevention. [...] Reviewed: yes Impression/Procedure: Impression and Planned Procedure: GLUE MAKER-D device insertion Review of Systems: Review of [...] understood the risks. Electronic Signatures: Aldo Diaz (TIRE REPAIRMAN-TECHNICAL STAFF ENGINEER) (Signed 03-Oct-2022 12:28) Authored: History of Present Illness, Allergies, Home Medication Review, Impression/Procedure, Review of Systems, Physical Exam, Consent, Note Completion Claus Browne) (Signed 03-Oct-2022 13:28) Co-Signer: History of Present Illness, Allergies, Home Medication Review, Impression/Procedure, Review of Systems, Physical Exam, Consent, Note Completion Last Updated: 03-Oct-2022 13:28 by Claus Browne) documented in this encounter [facility] Work Phone: 10-03-2022 Note LK-Geouvdyynu-Onmudcq [address] Work Phone: Electrophysiology Procedur e Testing Please click on the link to view the study images (Normal) 10-03-2022 Note UR-Mnbscezrvo-Yqwdtc [address] [place] Work Phone: Electrophysiology Procedur e [...] Lantus 40 units at bedtime. Denies hypoglycemia. [place] Hand is in [place]. She will have a pacemaker and defibrillator [...] EXTRACTION HX 2016 both eyes catacts removed, [facility] CHOLECYSTECTOMY 1970 COLONOSCOPY FLX DX [...] Take 1 tablet by mouth once daily. gbqxczinjjb-yebhqfigm-shdvalcc (TRELEGY ELLIPTA) 100-62.5-25 mcg inhalation powder Inhale [...] capsule by mouth once daily. Vit C-Vit H-Clolvj-CrBj-Lutein (PRESERVISION LUTEIN) 226 mg-200 unit -5 mg-0.8 mg cap Take 1 capsule by mouth once daily. clotrimazole (LOTRIMIN, CLOTRIM) 1 % cream (Patient not taking: Reported on 02/22/2022) Insulin [place], Disposable, 29 gauge x 1/2 ndle Use [...] Kacy Berumen APRN.JERRY documented in this encounter [facility] 04-27-2022 History of Present illness Narrative Formatting of this note is different fro m the original. This note was created using [employer]. Subjective Val Erickson is a 77 year old female. She was seeing Dr. Paula Walter for pulmonary in [facility]. She saw Dr. Yulia Antoine for cardiology. 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 Vit C-Vit I-Cxqgbe-OwOp-Lutein (PRESERVISION LUTEIN) 226 mg-200 unit -5 mg-0.8 mg cap Take 1 capsule by mouth once daily. clotrimazole (LOTRIMIN, CLOTRIM) 1 % cream (Patient not taking: Reported on 02/22/2022) Insulin [place], Disposable, 29 gauge x 1/2 ndle Use [...] Neel Turpin MD documented in this encounter [facility] 03-05-2022 Miscellaneous Notes Formatting of this note might be differe nt from the original. View External Lab - Chemistry [ID [id number]] View External Lab - Hematology [ID [id number]] Labs completed at [facility]. documented in this encounter [facility] 02-26-2022 Miscellaneous Notes Formatting of this note might be differe nt from the original. DAVIDI: Ezra with [facility] calls with PT plan of care. Ezra reports PT will see pt twice a week x 3 weeks then once a week x 4 weeks. Carole Lundy LPN documented in this encounter [facility] 02-23-2022 Miscellaneous Notes Formatting of this note might be differe nt from the original. Message left to [facility] nurse Lata Patient seen yesterday. Refills sent. Medications reconciled. Send current medication list if needed. Lata HARLEY calling from [facility] to report plan of care for patient and SN will visit patient 2 times a week for first week and then weekly. SN will work with patient on disease education and medication management. Lata reports that patient is confused about medications as [facility] didn't give patient any discharge instructions. Sent her home with medications packs for two days but no written instructions Patient has an order for furosemide 20 mg daily but only one pill was sent home. Patient was on Humalog insulin while at [facility]. Patient reports she is not going to Continue while at Home because she doesn't want to check blood sugars three times daily. Lata to have a nurse make a visit on Saturday to assist patient to get medications set up after appointment tomorrow with provider. [facility] to fax updated medication list to provider. Viktoria Johnston RN documented in this encounter [facility] 02-22-2022 History of Present illness Narrative Formatting of this note is different fro m the original. This note was created using [employer]. Subjective Val Erickson is a 77 year old female. She was admitted twice in December at the local hospital for intractable right leg pain. She was prescribed opioids which was not well tolerated. She ended up being discharged to SNF in [place]. While there, she was admitted last month at for pneumonia, versus CHF, SIADH. She was found to have cardiomyopathy with EF 30-35%. Lasix was started, then reduced due to CKD. Actos was discontinued. She was now on retirement oxygen for hypoxemia. She was discharged back to [facility] in [place] 01/29-02/20/22. She was now back home, and waiting for Home Health to restart. She has cardiology follow up 03/28/2022 at in [place]. ACTIVE PROBLEM LIST Essential Hypertension Generalized Osteoarthritis Allergic Rhinitis Due to Animal (Cat) (Dog) Hair and Dander Hyperlipemia Type II Diabetes Mellitus With Renal Manifestations ([facility]) Obesity, Class Iii, Bmi 40-49.9 (Morbid Obesity) ([facility]) Ckd (Chronic Kidney Disease) Stage 4, Gfr [...] Type II Diabetes Mellitus With Renal Manifestations ([facility]) Obesity, Class Iii, Bmi 40-49.9 (Morbid Obesity) ([facility]) Ckd (Chronic Kidney Disease) Stage 4, Gfr 15-29 Ml/Min ([facility]) Anemia Osteopenia Hyperparathyroidism, Secondary Renal ([facility]) 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 Insulin [place], Disposable, 29 gauge x 1/2 ndle Use once daily as directed. Dx E11.29 blood sugar diagnostic (ONETOUCH ULTRA TEST) test strip Test blood sugar(s) 2 times daily. (Patient taking differently: 1 Each. Test blood sugar(s) 2 times daily.) Lancets (FREESTYLE LANCETS) [facility] Test twice daily 250.02 furosemide (LASIX) [...] daily at bedtime. For cholesterol. Vit C-Vit K-Ogrmpn-PxSa-Lutein (PRESERVISION LUTEIN) 226 mg-200 unit -5 mg-0.8 [...] kidney disease) stage 4, GFR 15-29 ml/min ([facility]) - ICD9: 585.4, ICD10: N18.4 (primary diagnosis) - eGFR: Stable 2. DDD (degenerative disc disease), thoracolumbar - ICD9: 722.51, ICD10: M51.35 Dose updated to TID. - GABAPENTIN 300 MG CAPSULE 3. Type 2 diabetes mellitus with stage 4 chronic kidney disease, with long-term current use of insulin ([facility]) - ICD9: 250.40, 585.4, V58.67, [...] Neel Turpin MD documented in this encounter [facility] 02-20-2022 Miscellaneous Notes Formatting of this note might be differe nt from the original. Suzi notified of response. Jesenia Glasgow LPN PCP agrees and will follow Kacy Berumen APRN.JERRY Suzi with [facility] called in and reports Pt is going to discharge from [facility]. They report they put in a referral for Custodial/PT/OT. They report the patient will be coming home on O2. They are asking if the provider will follow the orders. documented in this encounter [facility] 01-29-2022 History of Present illness Narrative 77-year-old female with a medical histor y of diabetes, neuropathy, hypertension, hyperlipidemia who was first seen at [facility] January 29, 2022 with shortness of breath [...] chronic kidney disease with baseline creatinine 1.9-2.2. [employer] Work Phone: 01-29-2022 History of Present illness Narrative 77-year-old female with a medical histor y of diabetes, neuropathy, hypertension, hyperlipidemia who was first seen at [facility] January 29, 2022 with shortness of breath [...] chronic kidney disease with baseline creatinine 1.9-2.2. [employer] Work Phone: 01-29-2022 Note Send Summary: Discharge Summary Providers: Provider RoleProvider Name AttendingJairon Lopez ReferringJairon Lopez [facility] [place] Neel Alaniz Discharge: Summary: Admission Date: .26-Jan-2022 11:49:00 Discharge Date: 29-Jan-2022 Admission Reason: Shortness of breath Final Discharge Diagnoses: Acute CHF Procedures: none Vital Signs: T PRBPMAPSpO2 [id number]/7496% Date/Time01/29 7:3411/14 7: 7: 7: 7:34 Range(36.2C - 36.5C ) (77 - 110 ) (14 - 20 ) (95 - 132 )/ (58 - 74 ) (96% - 99% ) Date: Weight/Scale Type:Height: 26-Jan-2022 16:86485.6 kg / fay769.8 cm Physical Exam: Constitutional: Wake, alert, morbidly [...] her UTI. She [facility]ith[facility]. She did develop some acute kidney injury [...] Medication traMADol 50 (more content not included)... [facility] 01-29-2022 Hospital Discharge instructions Activity:activity as tolerated. [...] fossaVascular Access Port: top entry, single lumen [facility] 01-26-2022 Note History of Present I llness: [...] denies regular alcohol use, [facility] Review of systems as per HPI, comprehensive [...] 28 days. Objective: Objective Information: T PRBPMAPSpO2 [id number]/8396% Date/Time01/26 16: 16: 16: 16: 16:19 Range(36.4C [...] 7. Furosemide I (more content not included)... [facility] 01-16-2022 History of Present illness Narrative This is a 77-year-old female w mayra was accompanied by her son Rd and I was asked to see her because of issues with shortness of breath since January of last year. Patient has been on oxygen at 2 L dzkgey-yao-tywzm since then she lives alone at her [...] her was a smoker. 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 She reports being exposed to some chemicals for about 15 years and had to wear a mask. She was born and raised in [place]. Additionally the patient has a history of some insomnia. Her son says that she does snore at nighttime. -Pulmonary MedicineRebecca [place] [id number] DO Work Phone: 12-29-2021 History of Present [...] 2021 4:45 PM documented in this encounter [facility] 12-29-2021 Miscellaneous Notes Formatting of this note might be differe nt from the original. Pt has been in and out of [facility] twice this month She was last admitted 12/25/21 and discharged to [facility] on 12/27/21 for nursing home. documented in this encounter [facility] 12-25-2021 Miscellaneous Notes Formatting of this note might be differe nt from the original. Lata notified of below recommendation, verbalized understanding. Jesenia Glasgow LPN Drug interaction is not significant, especially with as needed medications. Okay to take both. Kacy Berumen APRN.CNP Lata with [facility] calling to let you know pt was d/x from [facility] on Oxycodone and Flexeril. Pt will be seen for nursing , OT and PT. Lata was showing a severe interaction between Flexeril and Tramadol. Please advise Lata. Juli Figueredo LPN documented in this encounter [facility] 12-22-2021 Miscellaneous Notes Formatting of this note might be differe nt from the original. Orders relayed to Suzi. Paul Alcaraz Ma PCP agrees and will follow Kacy Berumen APRN.CNP Suzi- [facility]- reports patient is currently a patient at [facility] and is possibly being discharged tomorrow. HH would like to see patient on Saturday. Asking if pcp is agreeable to sign and follow for orders. Please phone Suzi with verbal. documented in this encounter [facility] 12-20-2021 Miscellaneous Notes Formatting of this note [...] Patient transferred to get STAT ultrasound scheduled. Ireen Paredes RN Message left for pt to return call to a nurse. Please assist pt in getting the STAT ultrasound completed Patient's D-dimer is elevated, possible blood clot. She needs stat venous ultrasound, please call patient to schedule Kacy Berumen APRN.CNP documented in this encounter [facility] 12-19-2021 History of Present illness Narrative Formatting [...] 2021 1:50 PM documented in this encounter [facility] 12-18-2021 History of Present illness Narrative Formatting of this note is different fro m the original. This note was created using [employer]. Subjective Patient was here with son in [...] Neel Turpin MD documented in this encounter [facility] 12-04-2021 History of Present illness Narrative Formatting [...] history is provided by the patient. No language translator was used. Leg Pain Review of Systems [...] EXTRACTION HX 2015 both eyes catacts removed, [facility] CHOLECYSTECTOMY 1970 COLONOSCOPY FLX DX [...] capsule by mouth once daily. Vit C-Vit P-Dsteaw-XhUk-Lutein (PRESERVISION LUTEIN) 226 mg-200 unit -5 mg-0.8 mg cap Take 1 capsule by mouth once daily. clotrimazole (LOTRIMIN, CLOTRIM) 1 % cream Insulin [place], Disposable, 29 gauge x 1/2 ndle Use once daily as directed. Dx E11.29 COMPOUNDED PRESCRIPTION Take 1 tablet by mouth twice daily. Plexus Bio-5 (Probiotic) epoetin zari (PROCRIT,EPOGEN) 10,000 unit/mL injection Inject 10,000 Units subcutaneously q 4 WEEKS. 12,000 Units every two weeks. Lancets (FREESTYLE LANCETS) [facility] Test twice daily 250.02 lidocaine (LIDODERM) 5 % Apply 1 Patch as directed once daily for 14 days. Remove old patch prior to placing new patch. Location: right espinoza on for 12 hours and off for 12 hours predniSONE (DELTASONE) 20 mg tablet Take 2 tablets by mouth once daily for 5 days. blood sugar diagnostic (Parad[place] CornerTOUCH ULTRA TEST) test strip Test blood sugar(s) [...] Carissa Lee APRN.JERRY documented in this encounter [facility] 08-09-2021 History of Present illness Narrative This note was created using [employer]. Subjective Val Erickson is a 76 year [...] capsule by mouth once daily. Vit C-Vit C-Lxsevs-ZjIz-Lutein (PRESERVISION LUTEIN) 226 mg-200 unit -5 mg-0.8 mg cap Take 1 capsule by mouth once daily. gabapentin (NEURONTIN) 300 mg capsule Take 1 capsule by mouth daily at bedtime for 180 days. clotrimazole (LOTRIMIN, CLOTRIM) 1 % cream Insulin [place], Disposable, 29 gauge x 1/2 ndle Use [...] Neel Turpin MD documented in this encounter [facility] 07-06-2021 Miscellaneous Notes Message left to pt with info. No lab orders needed. I can do a fingerstick A1c. Patient calling she has appt scheduled for 08/09/2021 with PCP. She goes to [facility] every month and is scheduled for next Saturday to go. Patient is asking if she needs to have lab work done prior to appt? Patient said if so she wants orders mailed to her home address please, which is correct in the computer. Patient said to leave message on her machine for her. Last labs were done 03/22/2021 at [facility]. Pending orders if wanted, needs diagnosis. Aware PCP is out of office today. Please advise documented in this encounter [facility] 10-24-2017 History of Past i llness Narrative [...] of this encounter (statuses as of 07/06/2021) [facility] Narrative* Problem Noted [...] of this encounter (statuses as of 08/09/2021) [facility] Narrative* Problem Noted [...] of this encounter (statuses as of 12/04/2021) [facility] Narrative* Problem Noted [...] of this encounter (statuses as of 12/20/2021) [facility] Narrative* Problem Noted [...] of this encounter (statuses as of 12/22/2021) [facility] Narrative* Problem Noted [...] of this encounter (statuses as of 12/25/2021) [facility] Narrative* Problem Noted [...] of this encounter (statuses as of 12/29/2021) [facility] Narrative* Problem Noted [...] of this encounter (statuses as of 12/29/2021) [facility] Narrative* Problem Noted [...] of this encounter (statuses as of 12/29/2021) [facility] Narrative* Problem Noted [...] of this encounter (statuses as of 02/20/2022) [facility] Narrative* Problem Noted [...] of this encounter (statuses as of 02/22/2022) [facility] Narrative* Problem Noted [...] of this encounter (statuses as of 02/23/2022) [facility] Narrative* Problem Noted [...] of this encounter (statuses as of 02/26/2022) [facility] Narrative* Problem Noted [...] of this encounter (statuses as of 03/22/2022) [facility] Narrative* Problem Noted [...] of this encounter (statuses as of 04/27/2022) [facility] Narrative* Problem Noted [...] of this encounter (statuses as of 08/15/2022) [facility] Narrative* Problem Noted [...] of this encounter (statuses as of 08/21/2022) [facility] Narrative* Problem Noted [...] of this encounter (statuses as of 11/22/2022) [facility] Narrative* Problem Noted [...] of this encounter (statuses as of 11/29/2022) [facility] Narrative* Problem Noted [...] of this encounter (statuses as of 12/07/2022) [facility] Narrative* Problem Noted [...] of this encounter (statuses as of 01/04/2023) [facility] Narrative* Problem Noted [...] of this encounter (statuses as of 02/11/2023) [facility] Narrative* Problem Noted [...] of this encounter (statuses as of 02/14/2023) [facility] Narrative* Problem Noted [...] of this encounter (statuses as of 02/14/2023) [facility] Narrative* Problem Noted [...] of this encounter (statuses as of 04/23/2023) [facility] Narrative* Problem Noted [...] of this encounter (statuses as of 04/26/2023) [facility] Narrative* Problem Noted [...] of this encounter (statuses as of 05/01/2023) [facility] Narrative* Problem Noted [...] of this encounter (statuses as of 05/03/2023) [facility] Narrative* Problem Noted [...] of this encounter (statuses as of 05/08/2023) [facility] Narrative* Problem Noted [...] of this encounter (statuses as of 05/15/2023) [facility] Narrative* Problem Noted [...] of this encounter (statuses as of 05/22/2023) [facility] Narrative* Problem Noted [...] of this encounter (statuses as of 06/05/2023) [facility] Narrative* Problem Noted [...] of this encounter (statuses as of 06/06/2023) [facility] Narrative* Problem Noted [...] of this encounter (statuses as of 06/10/2023) [facility] Narrative* Problem Noted [...] of this encounter (statuses as of 06/11/2023) [facility] Narrative* Problem Noted [...] of this encounter (statuses as of 06/18/2023) [facility] Narrative* Problem Noted [...] of this encounter (statuses as of 06/27/2023) [facility] N[facility]ative* Problem Noted [...] of this encounter (statuses as of 07/04/2023) [facility] Narrative* Problem Noted [...] of this encounter (statuses as of 07/04/2023) [facility] complaint Narrative - Reported* VAL ERICKSON is here for an initial evaluation. * Reason for Visit: SOB. * Appointment requested by: Dr. Yulia Antoine. -Pulmonary Medicine-[address] Work Phone: Evaluation noteNo assessment information available [facility] Work Phone: Evaluation note* Diagnosis Essential hypertension- Primary Unspecified essential hypertension Type 2 diabetes mellitus with stage 4 chronic kidney disease, with long-term current use of insulin (HCC) DDD (degenerative disc disease), thoracolumbar Degeneration of thoracic or thoracolumbar intervertebral disc Mixed hyperlipidemia [facility] Diagnosis Pain of right lower extremity- Primary documented in this encounter [facility] note* Diagnosis Acute leg pain, right- Primary Depressive disorder Depressive disorder, not elsewhere classified DDD (degenerative disc disease), thoracolumbar Degeneration of thoracic or thoracolumbar intervertebral disc [facility]* Diagnosis Onset Date Resolution Status Acute pain of right lower extremity acute Hypoglycemia acute Intractable neuropathic pain of right lower extremity acute History of chronic hypertension chronic [facility] Work Phone: Evaluation note* Diagnosis Right leg pain- Primary Pain in limb Elevated d-dimer Abnormal coagulation profile [facility]* Diagnosis Onset Date Resolution Status Acute [...] disease), stage IV chronic Diabetes mellitus chronic [facility] Work Phone: Evaluation note* Musculoskeletal: Moves [...] no acute distress, cooperativeNeurological: Awake, alert, oriented [id number]: Mild edema of the lower extremities belowthe knees, improving, bilateral Geovanni wraps onPsychological: Appropriate mood and behavior [facility] Diagnosis CKD (chronic kidney disease) stage 4, GFR 15-29 ml/min ([facility])- Primary Chronic kidney disease, Stage IV (severe) DDD (degenerative disc disease), thoracolumbar Degeneration of thoracic or thoracolumbar intervertebral disc Type 2 diabetes mellitus with stage 4 chronic kidney disease, with long-term current use of insulin ([facility]) Anemia due to chronic kidney disease, unspecified CKD stage Essential hypertension Unspecified essential hypertension Mixed hyperlipidemia Hypertensive heart disease with acute on chronic systolic congestive heart failure ([facility]) Hypoxemia [facility] Diagnosis DDD (degenerative disc disease), thoracolumbar- Primary Degeneration of thoracic or thoracolumbar intervertebral disc Other hyperlipidemia Depressive disorder Depressive disorder, not elsewhere classified Type 2 diabetes mellitus with stage 4 chronic kidney disease, with long-term current use of insulin ([facility]) Hyperparathyroidism, secondary renal (HCC) Secondary hyperparathyroidism (of renal origin) Obesity, Class III, BMI 40-49.9 (morbid obesity) ([facility]) Morbid obesity [facility] Diagnosis Type 2 diabetes mellitus with stage 4 chronic kidney disease, with long-term current use of insulin ([facility])- Primary Hypertensive heart disease with acute on chronic systolic congestive heart failure (HCC) Depressive disorder Depressive disorder, not elsewhere classified DDD (degenerative disc disease), thoracolumbar Degeneration of thoracic or thoracolumbar intervertebral disc [facility] Diagnosis Patient left without being seen- Primary Surgical or other procedure not carried out because of patient's decision [facility] Diagnosis Chronic combined systolic and diastolic CHF, NYHA class 3 ([facility])- Primary Dyspnea on exertion Other dyspnea and respiratory abnormality documented in this encounter [facility] Work Phone: Evaluation note* Diagnosis Type 2 diabetes mellitus with stage 4 chronic kidney disease, with long-term current use of insulin (HCC)- Primary DDD (degenerative disc disease), thoracolumbar Degeneration of thoracic or thoracolumbar intervertebral disc Depressive disorder Depressive disorder, not elsewhere classified Encounter for immunization Need for other specified prophylactic vaccination against single bacterial disease [facility] Diagnosis Chronic combined systolic (congestive) and diastolic (congestive) heart failure (CMS/HCC) Hypertensive heart and chronic kidney disease with heart failure and stage 1 through stage 4 chronic kidney disease, or unspecified chronic kidney disease ([facility]/HCC) Chronic systolic (congestive) heart failure ([facility]/HCC) Left bundle-branch block, unspecified Compression of vein Other pericardial effusion (noninflammatory) Chronic kidney disease, stage 3 unspecified ([facility]) Type 2 diabetes mellitus with diabetic chronic kidney disease ([facility]/HCC) Hyperlipidemia, unspecified Type 2 diabetes mellitus with diabetic neuropathy, unspecified ([facility]/HCC) Morbid (severe) obesity due to excess calories ([facility]) Body mass index (BMI) 45.0-49.9, adult ([facility]) detention (current) use of insulin ([facility]) Heart failure, unspecified ([facility]) Heart failure, unspecified Procedure and treatment not carried out for other reasons documented in this encounter [facility] Work Phone: Evaluation note* Diagnosis Type 2 diabetes mellitus with stage 4 chronic kidney disease, with long-term current use of insulin ([facility]) [facility] Diagnosis Type 2 diabetes mellitus with stage 4 chronic kidney disease, with long-term current use of insulin ([facility])- Primary [facility] Diagnosis Obstructive airway disease ([facility]/HCC)- Primary Chronic airway obstruction, not elsewhere classified Dyspnea on exertion Other dyspnea and respiratory abnormality Nocturnal hypoxemia due to obesity documented in this encounter [facility] Work Phone: Evaluation note* Diagnosis ICD (implantable cardioverter-defibrillator) in place Paroxysmal ventricular tachycardia (CMS/HCC) Paroxysmal ventricular tachycardia documented in this encounter [facility] Work Phone: Evaluation note* Diagnosis Type 2 [...] Obesity, Class III, BMI 40-49.9 (morbid obesity) ([facility]) Morbid obesity [facility] Diagnosis Type 2 diabetes mellitus with stage 4 chronic kidney disease, with long-term current use of insulin ([facility])- Primary [facility] Diagnosis ICD (implantable cardioverter-defibrillator) in place Paroxysmal ventricular tachycardia (CMS/HCC) Paroxysmal ventricular tachycardia documented in this encounter [facility] Work Phone: Evaluation note* Diagnosis Type 2 diabetes mellitus with stage 4 chronic kidney disease, with long-term current use of insulin (HCC)- Primary [facility] Diagnosis Type 2 diabetes mellitus without retinopathy ([facility])- Primary Type II or unspecified type diabetes mellitus without mention of complication, not stated as uncontrolled Nonexudative age-related macular degeneration, right eye, 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, left eye, advanced atrophic with subfoveal involvement Pseudophakia, both eyes Lens replaced by other means Myopia, bilateral Myopia Regular astigmatism, bilateral [facility] Diagnosis Type 2 diabetes mellitus with stage 4 chronic kidney disease, with long-term current use of insulin (HCC)- Primary [facility] Diagnosis ICD (implantable cardioverter-defibrillator) in place Paroxysmal ventricular tachycardia (Multi) Paroxysmal ventricular tachycardia documented in this encounter [facility] Work Phone: Evaluation note* Diagnosis Type 2 diabetes mellitus with stage 4 chronic kidney disease, with long-term current use of insulin (HCC)- Primary [facility] Diagnosis Medicare annual wellness visit, subsequent- [...] on hard surface documented in this encounter [facility] note* Diagnosis Type 2 diabetes mellitus with stage 4 chronic kidney disease, with long-term current use of insulin (HCC) documented in this encounter [facility] note* Diagnosis Type 2 diabetes mellitus [...] on hard surface documented in this encounter [facility] note* Diagnosis Type 2 diabetes mellitus with stage 4 chronic kidney disease, with long-term current use of insulin (HCC)- Primary Essential hypertension Unspecified essential hypertension Dysuria Obesity, Class III, BMI 40-49.9 (morbid obesity) (HCC) Morbid obesity Anemia due to chronic kidney disease, unspecified CKD stage Acute leg pain, right documented in this encounter [facility] note* Diagnosis Type 2 diabetes mellitus [...] insulin (HCC)- Primary documented in this encounter [facility] note* Diagnosis ICD (implantable cardioverter-defibrillator) in place Paroxysmal ventricular tachycardia (Multi) Paroxysmal ventricular tachycardia documented in this encounter [facility] Work Phone: Evaluation note* Diagnosis Chest pain- [...] pain, unspecified type documented in this encounter [facility] Work Phone: Evaluation note* Diagnosis Congestive heart failure, unspecified HF chronicity, unspecified heart failure type (Multi)- Primary documented in this encounter [facility] Work Phone: Evaluation note* Diagnosis History of chronic obstructive airway disease- Primary Nocturnal hypoxemia Dyspnea on exertion Other dyspnea and respiratory abnormality Morbid obesity (Multi) Morbid obesity documented in this encounter [facility] Work Phone: Evaluation note* Diagnosis Type 2 [...] disease, with long-term current use of insulin ([facility])- Primary [facility] Diagnosis Congestive heart failure, unspecified HF chronicity, unspecified heart failure type- Primary Hypoxemia documented in this encounter [facility] Work Phone: Evaluation note* Diagnosis Moderate COPD (chronic obstructive pulmonary disease) (Multi)- Primary Dyspnea on exertion Other dyspnea and respiratory abnormality Morbid obesity (Multi) Morbid obesity documented in this encounter [facility] Work Phone: Evaluation note* Diagnosis Type 2 [...] single bacterial disease [facility]* Diagnosis Type 2 diabetes mellitus with stage 4 chronic kidney disease, with long-term current use of insulin (HCC)- Primary Essential hypertension Unspecified essential hypertension Dysuria Obesity, Class III, BMI 40-49.9 (morbid obesity) (HCC) Morbid obesity Anemia due to chronic kidney disease, unspecified CKD stage Type 2 diabetes mellitus with stage 4 chronic kidney disease, with long-term current use of insulin ([facility])- Primary [facility]* Diagnosis ICD (implantable cardioverter-defibrillator) in place Paroxysmal ventricular tachycardia (Multi) Paroxysmal ventricular tachycardia documented in this encounter [facility] Work Phone: Evaluation note* Diagnosis Type 2 diabetes mellitus with stage 4 chronic kidney disease, with long-term current use of insulin ([facility])- Primary Essential hypertension Unspecified essential hypertension Dysuria Obesity, Class III, BMI 40-49.9 (morbid obesity) Morbid obesity Anemia due to chronic kidney disease, unspecified CKD stage Adjustment disorder with anxiety- Primary Depressive disorder Depressive disorder, not elsewhere classified Type 2 diabetes mellitus with stage 4 chronic kidney disease, with long-term current use of insulin ([facility]) Fracture of unspecified part of neck of right femur, initial encounter for closed fracture ([facility]) Frequent falls Personal history of fall Urinary tract infection without hematuria, site unspecified Pneumonia due to infectious organism, unspecified laterality, unspecified part of lung [facility]* Diagnosis ICD (implantable cardioverter-defibrillator) in place Paroxysmal ventricular tachycardia documented in this encounter [facility] Work Phone: Evaluation note* Diagnosis Type 2 diabetes mellitus with stage 4 chronic kidney disease, with long-term current use of insulin ([facility])- Primary Essential hypertension Unspecified essential hypertension Dysuria Obesity, Class III, BMI 40-49.9 (morbid obesity) Morbid obesity Anemia due to chronic kidney disease, unspecified CKD stage Type 2 diabetes mellitus with stage 4 chronic kidney disease, with long-term current use of insulin ([facility])- Primary documented in this encounter [facility] note* Diagnosis Type 2 diabetes mellitus [...] diastolic heart failure [facility]* Diagnosis Type 2 diabetes mellitus with [...] Chronic respiratory failure [facility]* Diagnosis Type 2 diabetes mellitus with [...] insulin (HCC)- Primary [facility]* Diagnosis Type 2 diabetes mellitus with [...] insulin (HCC)- Primary [facility]* Diagnosis Type 2 diabetes mellitus with [...] disease, with long-term current use of insulin ([facility]) Encounter for screening examination for other mental health and behavioral disorders Chronic obstructive pulmonary disease, unspecified COPD type ([facility]) Essential hypertension Unspecified essential hypertension Mixed hyperlipidemia Obesity, Class III, BMI 40-49.9 (morbid obesity) (HCC) Morbid obesity Chronic combined systolic and diastolic heart failure (HCC) Chronic combined systolic and diastolic heart failure Depressive disorder Depressive disorder, not elsewhere classified [facility]* Patient was seen [...] part is due to her obesity. -Pulmonary Medicine-[place] [id number] DO Work Phone: History of Present illness [...] in part is due to her obesity. [facility] [place] [address] DO Work Phone: History of Present illness [...] cough or sputum production and no wheezing. [place] [address] DO Work Phone: History of Present illness [...] cough or sputum production and no wheezing. [place] [address] DO Work Phone: History of Present illness [...] or sputum production and no wheezing. MP-Pulmonary Medicine-[place] [address] DO Work Phone: History of Present [...] She is in need of a pacemaker [facility] Work [facility]: reason for referral (narrative)* Diagnostic Procedure Only (Routine) - Pending Review Specialty Diagnoses / Procedures Referred By Jorje bay Referred To Contact XR IMAGING Diagnoses Acute leg pain, right Procedures XR TIBIA FIBULA 2V AP/LAT RIGHT RADIOLOGIC EXAMINATION TIBIA & FIBULA 2 VIEWS Neel Turpin MD [address] [place] [address] Xr Imaging Referral ID Status Reason Start Date Expiration Date Visits Requested Visits Authorized [id number] Pending Review Auto-Generat ed Referral 12/18/2021 01/17/2023 1 1 * Diagnostic Procedure Only (Routine) - Pending Review Specialty Diagnoses / Procedures Referred By Jorje bay Referred To Contact XR IMAGING Diagnoses Acute leg pain, right Procedures XR KNEE GENERAL 4V AP BOTH/PA BOTH/LAT/MERC RIGHT RADIOLOGIC EXAM KNEE COMPLETE 4/MORE VIEWS Neel Turpin MD [address] [place] [address] Xr Imaging Referral ID Status Reason Start Date Expiration Date Visits Requested Visits Authorized [id number] Pending Review Auto-Generat ed Referral 12/18/2021 01/17/2023 1 1 [facility] Outpatient Procedure (Urgent) - Closed Specialty Diagnoses / Procedures Referred By Contac t Referred To [facility] Diagnoses Right leg pain Elevated d-dimer Procedures US LEG VEIN DVT UNL VAS LAB DUP-SCAN XTR VEINS UNILATERAL/LIMITED STUDY Kacy Berumen APRN.TECHNICAL STAFF ENGINEER [address] [place] [address] [facility] [address] [place] [address] Referral ID Status Reason Start Date Expiration Date V isits Requested Visits Authorized [id number] Closed Auto-Generate d Referral 12/19/2021 12/19/2022 1 1 [facility] for referral (narrative)* Diagnostic Procedure Only (Urgent) - Closed Specialty Diagnoses / Procedures Referred By Contac t Referred To Contact XR IMAGING Diagnoses Right hip pain Fall on hard surface Procedures XR HIP GENERAL 3V PELV/AP/LAT RIGHT RADEX HIP UNILATERAL WITH PELVIS 2-3 VIEWS Kacy Mary TIRE REPAIRMAN.TECHNICAL STAFF ENGINEER [address] [place] [address] [place] [address] Referral ID Status Reason Start Date Expiration Date V isits Requested Visits Authorized [id number] Closed Auto-Generate d Referral 09/23/2023 10/22/2024 1 1 [facility] for referral (narrative)* Diagnostic Procedure Only (Urgent) - Closed Specialty Diagnoses / Procedures Referred By Contac t Referred To Contact XR IMAGING Diagnoses Right hip pain Fall on hard surface Procedures XR HIP GENERAL 3V PELV/AP/LAT RIGHT RADEX HIP UNILATERAL WITH PELVIS 2-3 VIEWS Kacy Mary TIRE REPAIRMAN.TECHNICAL STAFF ENGINEER [address] [place] [address] [place] [address] Referral ID Status Reason Start Date Expiration Date V isits Requested Visits Authorized [id number] Closed Auto-Generate d Referral 09/23/2023 10/22/2024 1 1 [facility] for referral (narrative)* Diagnostic Procedure Only (Routine) - Closed Specialty Diagnoses / Procedures Referred By Contac t Referred To Contact XR IMAGING Diagnoses Acute leg pain, right Procedures XR TIBIA FIBULA 2V AP/LAT RIGHT RADIOLOGIC EXAMINATION TIBIA & FIBULA 2 VIEWS Neel Turpin MD [address] [place] [address] [place] [address] Referral ID Status Reason Start Date Expiration Date V isits Requested Visits Authorized [id number] Closed Auto-Generate d Referral 12/18/2021 01/17/2023 1 1 * Diagnostic Procedure Only (Routine) - Closed Specialty Diagnoses / Procedures Referred By Contac t Referred To Contact XR IMAGING Diagnoses Acute leg pain, right Procedures XR KNEE GENERAL 4V AP BOTH/PA BOTH/LAT/MERC RIGHT RADIOLOGIC EXAM KNEE COMPLETE 4/MORE VIEWS Neel Turpin MD [address] [place] [address] [place] [address] Referral ID Status Reason Start Date Expiration Date V isits Requested Visits Authorized [id number] Closed Auto-Generate d Referral 12/18/2021 01/17/2023 1 1 [facility] for visit Narrative* Diagnostic Procedure Only (Urgent) - Closed Specialty Diagnoses / Procedures Referred By Contac t Referred To Contact XR IMAGING Diagnoses Right hip pain Fall on hard surface Procedures XR HIP GENERAL 3V PELV/AP/LAT RIGHT RADEX HIP UNILATERAL WITH PELVIS 2-3 VIEWS Kacy Mary, TIRE REPAIRMAN.TECHNICAL STAFF ENGINEER [address] [place] [address] [place] [address] Referral ID Status Reason Start Date Expiration Date V isits Requested Visits Authorized [id number] Closed Auto-Generate d Referral 09/23/2023 10/22/2024 1 1 [facility] for visit Narrative* Diagnostic Procedure Only (Routine) - Closed Specialty Diagnoses / Procedures Referred By Contac t Referred To Contact XR IMAGING Diagnoses Acute leg pain, right Procedures XR TIBIA FIBULA 2V AP/LAT RIGHT RADIOLOGIC EXAMINATION TIBIA & FIBULA 2 VIEWS Neel Turpin MD [address] [place] [address] [place] [address] Referral ID Status Reason Start Date Expiration Date V isits Requested Visits Authorized [id number] Closed Auto-Generate d Referral 12/18/2021 01/17/2023 1 1 [facility] for visit Narrative* Imaging (Routine) - Authorized Specialty Diagnoses / Procedures Referred By Jorje t Referred To Contact Cardiology Diagnoses ICD (implantable cardioverter-defibrillator) in place Paroxysmal ventricular tachycardia (Multi) Procedures Cardiac Device Check - Remote Claus Browne MD Phone: tel: fax: [place] [address] [place] [address] Phone: tel: fax: Referral ID Status Reason Start Date Expiration Date Visits Requested Visits Authorized [id number] Authorized Perform Procedure 07/17/2023 07/16/[address] [place] [address] Work Phone: [facility] for visit Narrative* Imaging (Routine) - Authorized Specialty Diagnoses / Procedures Referred By Jorje t Referred To Contact Cardiology Diagnoses ICD (implantable cardioverter-defibrillator) in place Paroxysmal ventricular tachycardia Procedures Cardiac Device Check - Remote Claus Browne MD Phone: tel: fax: [facility] [place] [address] Phone: tel: fax: Referral ID Status Reason Start Date Expiration Date Visits Requested Visits Authorized [id number] Authorized Perform Procedure 07/17/2023 07/16/[address] [place] [address] Work Phone: Summary Purpose Family History No [...] Yes February 03, 018 10:31am Power of Appeals Representative Yes February 03, 2018 10:31am Advance Directive Response Recorded Date/ Time Name of Medical Power of Appeals Representative Rd [place] December 21, 2021 4:02pm Advance Directives Yes April 25, 2016 12:12pm Living Will Yes December 21 4:02pm Power of Appeals Representative Yes December 21 022 4:02pm Advance Directive Response Recorded Date/ Time Name of Medical Power of Appeals Representative Rd [place] December 21, 2021 4:02pm Advance Directives Yes April 25, 2016 12:12pm Living Will No December 25 6:56pm Power of Appeals Representative No December 25, 2021 6:56pm Advance Directive Response Recorded Date/ Time Name of Medical Power of Appeals Representative Rd [place] December 21, 2021 3:02pm Advance Directives Yes April 25, 2016 11:12am Living Will No December 25 5:56pm Power of Appeals Representative No December 25, 2021 5:56pm Advance Directive Response Recorded Date/ Time Advance Directives Yes April 25, 2016 11:12am Living Will No December 25 5:56pm Power of Appeals Representative No December 25, 2021 5:56pm Advance Directive Response Recorded Date/ Time Advance Directives Yes April 25, 2016 12:12pm Living Will No December 25 6:56pm Power of Appeals Representative No December 25, 2021 6:56pm Date Activated [...] lower extremity Procedures CONSULT TO ORTHOPAEDICS OFFICE/OUTPATIENT [facility] 60-74 MINUTES Carissa Lee APRN.TECHNICAL STAFF ENGINEER [address] [place] [address] Referral ID Status Reason Start Date Expiration Date Visits Requested Visits Authorized [id number] Authorized PCP Requested Referral 12/04/2021 12/04/2022 1 1 Specialty Diagnoses / Procedures Referred By Contac t Referred To Contact Diagnoses Chronic combined systolic and diastolic CHF, NYHA class 3 (CMS/HCC) Dyspnea on exertion Procedures ECG 12 Lead Chris Antoine MD [address] [facility], [facility] [address] [place] [address] Referral ID Status Reason Start Date Expiration Date V isits Requested Visits Authorized [id number] Pending Review 12/28/2022 06/26/2023 1 1 Specialty Diagnoses / Procedures Referred By Contac t Referred To Contact Cardiology Diagnoses ICD (implantable cardioverter-defibrillator) in place Paroxysmal ventricular tachycardia (CMS/HCC) Procedures Cardiac device check - Remote alert Claus Browne MD [address] [place] [address] [id number] [place] [address] Referral ID Status Reason Start Date Expiration Date Visits Requested Visits Authorized [id number] Authorized Perform Procedure 04/17/2023 04/16/2024 1 1 Specialty Diagnoses / Procedures Referred By Contac t Referred To Contact Cardiology Diagnoses ICD (implantable cardioverter-defibrillator) in place Paroxysmal ventricular tachycardia (CMS/HCC) Procedures Cardiac Device Check - In Clinic Claus Browne MD [address] [place] [address] Referral ID Status Reason Start Date Expiration Date Visits Requested Visits Authorized [id number] Pending Review Perform Procedure 05/14/2023 05/13/2024 1 1 Specialty Diagnoses / Procedures Referred By Contac t Referred To Contact Cardiology Diagnoses ICD (implantable cardioverter-defibrillator) in place Paroxysmal ventricular tachycardia (Multi) Procedures Cardiac Device Check - Remote Claus Bronwe MD [address] [facility] 3, [facility] [address] [place] [address] [facility]140 [address] [facility] [address] [place] [address] Referral ID Status Reason Start Date Expiration Date Visits Requested Visits Authorized [id number] Authorized Perform Procedure 07/17/2023 07/16/2024 10 10 Specialty Diagnoses / Procedures Referred By Contac t Referred To Contact Home Health Services Diagnoses Chest pain, unspecified type Tara Rollins I, TIRE REPAIRMAN-TECHNICAL STAFF ENGINEER [address] [place] [address] [facility] [address] [place] [address] Referral ID Status Reason Start Date Expiration Date Visits Requested Visits Authorized [id number] Pending Review Specialty Services Required 09/11/2023 09/10/2024 999 999 Specialty Diagnoses / Procedures Referred By Contac t Referred To Contact Cardiology Diagnoses ICD (implantable cardioverter-defibrillator) in place Paroxysmal ventricular tachycardia (Multi) Procedures Cardiac Device Check - In Clinic Claus Browne MD [address] [facility] [address], [address] [address] Referral ID Status Reason Start Date Expiration Date Visits Requested Visits Authorized [id number] Authorized Perform Procedure 05/14/2023 05/13/2024 2 2 [...] OF TRELEGY1 MO MARTINEZ-TRIAL OF TRELEGY1 MO MRATINEZ-TRIAL OF TRELEGYHeart failure with reduced ejection fractionMEDIPORT REMOVALPt here for 1 week wound check s/p pacemaker placement with Dr. Browne on 10/03/22 @ [facility]. states she feels well. Dressing removed. Site healing well with mild ecchymosis. No drainage, swelling or redness noted. Steris strips intact. Slight irritation with bandage adhesive. Additional Source Comments INFORMATION SOURCE (unrecogn ized section and content) DATE CREATED AUTHOR 04/29/2018 [facility] DATE CREATED AUTHOR AUTHOR'S ORGANIZ ATION 05/07/2018 [facility] DATE CREATED AUTHOR AUTHOR'S ORGANIZ ATION 02/13/2022 [facility] DATE CREATED AUTHOR AUTHOR'S ORGANIZ ATION 12/18/2022 [facility] DATE CREATED AUTHOR AUTHOR'S ORGANIZ ATION 12/20/2022 [facility] DATE CREATED AUTHOR AUTHOR'S ORGANIZ ATION 02/03/2023 [facility] DATE CREATED AUTHOR AUTHOR'S ORGANIZ ATION 03/27/2024 [facility] DATE CREATED AUTHOR AUTHOR'S ORGANIZ ATION 06/20/2024 [facility] DATE CREATED AUTHOR AUTHOR'S ORGANIZ ATION 07/22/2024 [facility] DATE CREATED AUTHOR AUTHOR'S ORGANIZ ATION 08/03/2024 [facility] DATE CREATED AUTHOR AUTHOR'S ORGANIZ ATION 09/19/2024 [facility] DATE CREATED AUTHOR AUTHOR'S ORGANIZ ATION [facility] Go[facility] (unrecognized section and content) Goals may [...] or prosecute any alcohol or drug abuse patient.[facility] SystemIn the event this information is protected by the Federal Confidentiality of Alcohol and Drug Abuse Patient Records regulations: The Federal rules restrict any use of the information to criminally investigate or prosecute any alcohol or drug abuse patient.[facility] SystemIn the event this information is protected by the Federal Confidentiality of Alcohol and Drug Abuse Patient Records regulations: The Federal rules restrict any use of the information to criminally investigate or prosecute any alcohol or drug abuse patient.[facility] SystemIn the event this information is protected by the Federal Confidentiality of Alcohol and Drug Abuse Patient Records regulations: The Federal rules restrict any use of the information to criminally investigate or prosecute any alcohol or drug abuse patient.[facility] SystemIn the event this information is protected by the Federal Confidentiality of Alcohol and Drug Abuse Patient Records regulations: The Federal rules restrict any use of the information to criminally investigate or prosecute any alcohol or drug abuse patient.[facility] SystemIn the event this information is protected by the Federal Confidentiality of Alcohol and Drug Abuse Patient Records regulations: The Federal rules restrict any use of the information to criminally investigate or prosecute any alcohol or drug abuse patient.[facility] SystemIn the event this information is protected by the Federal Confidentiality of Alcohol and Drug Abuse Patient Records regulations: The Federal rules restrict any use of the information to criminally investigate or prosecute any alcohol or drug abuse patient.[facility] SystemIn the event this information is protected by the Federal Confidentiality of Alcohol and Drug Abuse Patient Records regulations: The Federal rules restrict any use of the information to criminally investigate or prosecute any alcohol or drug abuse patient.[facility] SystemIn the event this information is protected by the Federal Confidentiality of Alcohol and Drug Abuse Patient Records regulations: The Federal rules restrict any use of the information to criminally investigate or prosecute any alcohol or drug abuse patient.[facility] SystemIn the event this information is protected by the Federal Confidentiality of Alcohol and Drug Abuse Patient Records regulations: The Federal rules restrict any use of the information to criminally investigate or prosecute any alcohol or drug abuse patient.[facility] SystemIn the event this information is protected by the Federal Confidentiality of Alcohol and Drug Abuse Patient Records regulations: The Federal rules restrict any use of the information to criminally investigate or prosecute any alcohol or drug abuse patient.[facility] SystemIn the event this information is protected by the Federal Confidentiality of Alcohol and Drug Abuse Patient Records regulations: The Federal rules restrict any use of the information to criminally investigate or prosecute any alcohol or drug abuse patient.[facility] SystemIn the event this information is protected by the Federal Confidentiality of Alcohol and Drug Abuse Patient Records regulations: The Federal rules restrict any use of the information to criminally investigate or prosecute any alcohol or drug abuse patient.[facility] SystemIn the event this information is protected by the Federal Confidentiality of Alcohol and Drug Abuse Patient Records regulations: The Federal rules restrict any use of the information to criminally investigate or prosecute any alcohol or drug abuse patient.[facility] SystemIn the event this information is protected by the Federal Confidentiality of Alcohol and Drug Abuse Patient Records regulations: The Federal rules restrict any use of the information to criminally investigate or prosecute any alcohol or drug abuse patient.[facility] SystemIn the event this information is protected by the Federal Confidentiality of Alcohol and Drug Abuse Patient Records regulations: The Federal rules restrict any use of the information to criminally investigate or prosecute any alcohol or drug abuse patient.[facility] SystemIn the event this information is protected by the Federal Confidentiality of Alcohol and Drug Abuse Patient Records regulations: The Federal rules restrict any use of the information to criminally investigate or prosecute any alcohol or drug abuse patient.[facility] SystemIn the event this information is protected by the Federal Confidentiality of Alcohol and Drug Abuse Patient Records regulations: The Federal rules restrict any use of the information to criminally investigate or prosecute any alcohol or drug abuse patient.[facility] SystemIn the event this information is protected by the Federal Confidentiality of Alcohol and Drug Abuse Patient Records regulations: The Federal rules restrict any use of the information to criminally investigate or prosecute any alcohol or drug abuse patient.[facility] SystemIn the event this information is protected by the Federal Confidentiality of Alcohol and Drug Abuse Patient Records regulations: The Federal rules restrict any use of the information to criminally investigate or prosecute any alcohol or drug abuse patient.[facility] SystemIn the event this information is protected by the Federal Confidentiality of Alcohol and Drug Abuse Patient Records regulations: The Federal rules restrict any use of the information to criminally investigate or prosecute any alcohol or drug abuse patient.[facility] SystemIn the event this information is protected by the Federal Confidentiality of Alcohol and Drug Abuse Patient Records regulations: The Federal rules restrict any use of the information to criminally investigate or prosecute any alcohol or drug abuse patient.[facility] SystemIn the event this information is protected by the Federal Confidentiality of Alcohol and Drug Abuse Patient Records regulations: The Federal rules restrict any use of the information to criminally investigate or prosecute any alcohol or drug abuse patient.[facility] SystemIn the event this information is protected by the Federal Confidentiality of Alcohol and Drug Abuse Patient Records regulations: The Federal rules restrict any use of the information to criminally investigate or prosecute any alcohol or drug abuse patient.[facility] SystemIn the event this information is protected by the Federal Confidentiality of Alcohol and Drug Abuse Patient Records regulations: The Federal rules restrict any use of the information to criminally investigate or prosecute any alcohol or drug abuse patient.[facility] SystemIn the event this information is protected by the Federal Confidentiality of Alcohol and Drug Abuse Patient Records regulations: The Federal rules restrict any use of the information to criminally investigate or prosecute any alcohol or drug abuse patient.[facility] SystemIn the event this information is protected by the Federal Confidentiality of Alcohol and Drug Abuse Patient Records regulations: The Federal rules restrict any use of the information to criminally investigate or prosecute any alcohol or drug abuse patient.[facility] SystemIn the event this information is protected by the Federal Confidentiality of Alcohol and Drug Abuse Patient Records regulations: The Federal rules restrict any use of the information to criminally investigate or prosecute any alcohol or drug abuse patient.[facility] SystemIn the event this information is protected by the Federal Confidentiality of Alcohol and Drug Abuse Patient Records regulations: The Federal rules restrict any use of the information to criminally investigate or prosecute any alcohol or drug abuse patient.[facility] SystemIn the event this information is protected by the Federal Confidentiality of Alcohol and Drug Abuse Patient Records regulations: The Federal rules restrict any use of the information to criminally investigate or prosecute any alcohol or drug abuse patient.[facility] SystemIn the event this information is protected by the Federal Confidentiality of Alcohol and Drug Abuse Patient Records regulations: The Federal rules restrict any use of the information to criminally investigate or prosecute any alcohol or drug abuse patient.[facility] SystemIn the event this information is protected by the Federal Confidentiality of Alcohol and Drug Abuse Patient Records regulations: The Federal rules restrict any use of the information to criminally investigate or prosecute any alcohol or drug abuse patient.[facility] SystemIn the event this information is protected by the Federal Confidentiality of Alcohol and Drug Abuse Patient Records regulations: The Federal rules restrict any use of the information to criminally investigate or prosecute any alcohol or drug abuse patient.[facility] SystemIn the event this information is protected by the Federal Confidentiality of Alcohol and Drug Abuse Patient Records regulations: The Federal rules restrict any use of the information to criminally investigate or prosecute any alcohol or drug abuse patient.[facility] SystemIn the event this information is protected by the Federal Confidentiality of Alcohol and Drug Abuse Patient Records regulations: The Federal rules restrict any use of the information to criminally investigate or prosecute any alcohol or drug abuse patient.[facility] SystemIn the event this information is protected by the Federal Confidentiality of Alcohol and Drug Abuse Patient Records regulations: The Federal rules restrict any use of the information to criminally investigate or prosecute any alcohol or drug abuse patient.[facility] SystemIn the event this information is protected by the Federal Confidentiality of Alcohol and Drug Abuse Patient Records regulations: The Federal rules restrict any use of the information to criminally investigate or prosecute any alcohol or drug abuse patient.[facility] SystemIn the event this information is protected by the Federal Confidentiality of Alcohol and Drug Abuse Patient Records regulations: The Federal rules restrict any use of the information to criminally investigate or prosecute any alcohol or drug abuse patient.[facility] SystemIn the event this information is protected by the Federal Confidentiality of Alcohol and Drug Abuse Patient Records regulations: The Federal rules restrict any use of the information to criminally investigate or prosecute any alcohol or drug abuse patient.[facility] SystemIn the event this information is protected by the Federal Confidentiality of Alcohol and Drug Abuse Patient Records regulations: The Federal rules restrict any use of the information to criminally investigate or prosecute any alcohol or drug abuse patient.[facility] SystemIn the event this information is protected by the Federal Confidentiality of Alcohol and Drug Abuse Patient Records regulations: The Federal rules restrict any use of the information to criminally investigate or prosecute any alcohol or drug abuse patient.[facility] SystemIn the event this information is protected by the Federal Confidentiality of Alcohol and Drug Abuse Patient Records regulations: The Federal rules restrict any use of the information to criminally investigate or prosecute any alcohol or drug abuse patient.[facility] SystemIn the event this information is protected by the Federal Confidentiality of Alcohol and Drug Abuse Patient Records regulations: The Federal rules restrict any use of the information to criminally investigate or prosecute any alcohol or drug abuse patient.[facility] SystemIn the event this information is protected by the Federal Confidentiality of Alcohol and Drug Abuse Patient Records regulations: The Federal rules restrict any use of the information to criminally investigate or prosecute any alcohol or drug abuse patient.[facility] SystemIn the event this information is protected by the Federal Confidentiality of Alcohol and Drug Abuse Patient Records regulations: The Federal rules restrict any use of the information to criminally investigate or prosecute any alcohol or drug abuse patient.[facility] SystemIn the event this information is protected by the Federal Confidentiality of Alcohol and Drug Abuse Patient Records regulations: The Federal rules restrict any use of the information to criminally investigate or prosecute any alcohol or drug abuse patient.[facility] SystemIn the event this information is protected by the Federal Confidentiality of Alcohol and Drug Abuse Patient Records regulations: The Federal rules restrict any use of the information to criminally investigate or prosecute any alcohol or drug abuse patient.[facility] SystemIn the event this information is protected by the Federal Confidentiality of Alcohol and Drug Abuse Patient Records regulations: The Federal rules restrict any use of the information to criminally investigate or prosecute any alcohol or drug abuse patient.[facility] SystemIn the event this information is protected by the Federal Confidentiality of Alcohol and Drug Abuse Patient Records regulations: The Federal rules restrict any use of the information to criminally investigate or prosecute any alcohol or drug abuse patient.[facility] SystemIn the event this information is protected by the Federal Confidentiality of Alcohol and Drug Abuse Patient Records regulations: The Federal rules restrict any use of the information to criminally investigate or prosecute any alcohol or drug abuse patient.[facility] SystemIn the event this information is protected by the Federal Confidentiality of Alcohol and Drug Abuse Patient Records regulations: The Federal rules restrict any use of the information to criminally investigate or prosecute any alcohol or drug abuse patient.[facility] SystemIn the event this information is protected by the Federal Confidentiality of Alcohol and Drug Abuse Patient Records regulations: The Federal rules restrict any use of the information to criminally investigate or prosecute any alcohol or drug abuse patient.[facility] SystemIn the event this information is protected by the Federal Confidentiality of Alcohol and Drug Abuse Patient Records regulations: The Federal rules restrict any use of the information to criminally investigate or prosecute any alcohol or drug abuse patient.[facility] SystemIn the event this information is protected by the Federal Confidentiality of Alcohol and Drug Abuse Patient Records regulations: The Federal rules restrict any use of the information to criminally investigate or prosecute any alcohol or drug abuse patient.[facility] SystemIn the event this information is protected by the Federal Confidentiality of Alcohol and Drug Abuse Patient Records regulations: The Federal rules restrict any use of the information to criminally investigate or prosecute any alcohol or drug abuse patient.[facility] SystemIn the event this information is protected by the Federal Confidentiality of Alcohol and Drug Abuse Patient Records regulations: The Federal rules restrict any use of the information to criminally investigate or prosecute any alcohol or drug abuse patient.[facility] SystemIn the event this information is protected by the Federal Confidentiality of Alcohol and Drug Abuse Patient Records regulations: The Federal rules restrict any use of the information to criminally investigate or prosecute any alcohol or drug abuse patient.[facility] SystemIn the event this information is protected by the Federal Confidentiality of Alcohol and Drug Abuse Patient Records regulations: The Federal rules restrict any use of the information to criminally investigate or prosecute any alcohol or drug abuse patient.[facility] SystemIn the event this information is protected by the Federal Confidentiality of Alcohol and Drug Abuse Patient Records regulations: The Federal rules restrict any use of the information to criminally investigate or prosecute any alcohol or drug abuse patient.[facility] SystemIn the event this information is protected by the Federal Confidentiality of Alcohol and Drug Abuse Patient Records regulations: The Federal rules restrict any use of the information to criminally investigate or prosecute any alcohol or drug abuse patient.[facility] SystemIn the event this information is protected by the Federal Confidentiality of Alcohol and Drug Abuse Patient Records regulations: The Federal rules restrict any use of the information to criminally investigate or prosecute any alcohol or drug abuse patient.[facility] SystemIn the event this information is protected by the Federal Confidentiality of Alcohol and Drug Abuse Patient Records regulations: The Federal rules restrict any use of the information to criminally investigate or prosecute any alcohol or drug abuse patient.[facility] SystemIn the event this information is protected by the Federal Confidentiality of Alcohol and Drug Abuse Patient Records regulations: The Federal rules restrict any use of the information to criminally investigate or prosecute any alcohol or drug abuse patient.[facility] SystemIn the event this information is protected by the Federal Confidentiality of Alcohol and Drug Abuse Patient Records regulations: The Federal rules restrict any use of the information to criminally investigate or prosecute any alcohol or drug abuse patient.[facility] SystemIn the event this information is protected by the Federal Confidentiality of Alcohol and Drug Abuse Patient Records regulations: The Federal rules restrict any use of the information to criminally investigate or prosecute any alcohol or drug abuse patient.[facility] SystemIn the event this information is protected by the Federal Confidentiality of Alcohol and Drug Abuse Patient Records regulations: The Federal rules restrict any use of the information to criminally investigate or prosecute any alcohol or drug abuse patient.[facility] SystemIn the event this information is protected by the Federal Confidentiality of Alcohol and Drug Abuse Patient Records regulations: The Federal rules restrict any use of the information to criminally investigate or prosecute any alcohol or drug abuse patient.[facility] SystemIn the event this information is protected by the Federal Confidentiality of Alcohol and Drug Abuse Patient Records regulations: The Federal rules restrict any use of the information to criminally investigate or prosecute any alcohol or drug abuse patient.[facility] SystemIn the event this information is protected by the Federal Confidentiality of Alcohol and Drug Abuse Patient Records regulations: The Federal rules restrict any use of the information to criminally investigate or prosecute any alcohol or drug abuse patient.[facility] SystemIn the event this information is protected by the Federal Confidentiality of Alcohol and Drug Abuse Patient Records regulations: The Federal rules restrict any use of the information to criminally investigate or prosecute any alcohol or drug abuse patient.[facility] SystemIn the event this information is protected by the Federal Confidentiality of Alcohol and Drug Abuse Patient Records regulations: The Federal rules restrict any use of the information to criminally investigate or prosecute any alcohol or drug abuse patient.[facility] SystemIn the event this information is protected by the Federal Confidentiality of Alcohol and Drug Abuse Patient Records regulations: The Federal rules restrict any use of the information to criminally investigate or prosecute any alcohol or drug abuse patient.[facility] SystemIn the event this information is protected by the Federal Confidentiality of Alcohol and Drug Abuse Patient Records regulations: The Federal rules restrict any use of the information to criminally investigate or prosecute any alcohol or drug abuse patient.[facility] SystemIn the event this information is protected by the Federal Confidentiality of Alcohol and Drug Abuse Patient Records regulations: The Federal rules restrict any use of the information to criminally investigate or prosecute any alcohol or drug abuse patient.[facility] SystemIn the event this information is protected by the Federal Confidentiality of Alcohol and Drug Abuse Patient Records regulations: The Federal rules restrict any use of the information to criminally investigate or prosecute any alcohol or drug abuse patient.[facility] SystemIn the event this information is protected by the Federal Confidentiality of Alcohol and Drug Abuse Patient Records regulations: The Federal rules restrict any use of the information to criminally investigate or prosecute any alcohol or drug abuse patient.[facility] SystemIn the event this information is protected by the Federal Confidentiality of Alcohol and Drug Abuse Patient Records regulations: The Federal rules restrict any use of the information to criminally investigate or prosecute any alcohol or drug abuse patient.[facility] SystemIn the event this information is protected by the Federal Confidentiality of Alcohol and Drug Abuse Patient Records regulations: The Federal rules restrict any use of the information to criminally investigate or prosecute any alcohol or drug abuse patient.[facility] SystemIn the event this information is protected by the Federal Confidentiality of Alcohol and Drug Abuse Patient Records regulations: The Federal rules restrict any use of the information to criminally investigate or prosecute any alcohol or drug abuse patient.[facility] SystemIn the event this information is protected by the Federal Confidentiality of Alcohol and Drug Abuse Patient Records regulations: The Federal rules restrict any use of the information to criminally investigate or prosecute any alcohol or drug abuse patient.[facility] SystemIn the event this information is protected by the Federal Confidentiality of Alcohol and Drug Abuse Patient Records regulations: The Federal rules restrict any use of the information to criminally investigate or prosecute any alcohol or drug abuse patient.[facility] SystemIn the event this information is protected by the Federal Confidentiality of Alcohol and Drug Abuse Patient Records regulations: The Federal rules restrict any use of the information to criminally investigate or prosecute any alcohol or drug abuse patient.[facility] SystemIn the event this information is protected by the Federal Confidentiality of Alcohol and Drug Abuse Patient Records regulations: The Federal rules restrict any use of the information to criminally investigate or prosecute any alcohol or drug abuse patient.[facility] SystemIn the event this information is protected by the Federal Confidentiality of Alcohol and Drug Abuse Patient Records regulations: The Federal rules restrict any use of the information to criminally investigate or prosecute any alcohol or drug abuse patient.[facility] SystemIn the event this information is protected by the Federal Confidentiality of Alcohol and Drug Abuse Patient Records regulations: The Federal rules restrict any use of the information to criminally investigate or prosecute any alcohol or drug abuse patient.[facility] SystemIn the event this information is protected by the Federal Confidentiality of Alcohol and Drug Abuse Patient Records regulations: The Federal rules restrict any use of the information to criminally investigate or prosecute any alcohol or drug abuse patient.[facility] SystemIn the event this information is protected by the Federal Confidentiality of Alcohol and Drug Abuse Patient Records regulations: The Federal rules restrict any use of the information to criminally investigate or prosecute any alcohol or drug abuse patient.[facility] SystemIn the event this information is protected by the Federal Confidentiality of Alcohol and Drug Abuse Patient Records regulations: The Federal rules restrict any use of the information to criminally investigate or prosecute any alcohol or drug abuse patient.[facility] SystemIn the event this information is protected by the Federal Confidentiality of Alcohol and Drug Abuse Patient Records regulations: The Federal rules restrict any use of the information to criminally investigate or prosecute any alcohol or drug abuse patient.[facility] SystemIn the event this information is protected by the Federal Confidentiality of Alcohol and Drug Abuse Patient Records regulations: The Federal rules restrict any use of the information to criminally investigate or prosecute any alcohol or drug abuse patient.[facility] SystemIn the event this information is protected by the Federal Confidentiality of Alcohol and Drug Abuse Patient Records regulations: The Federal rules restrict any use of the information to criminally investigate or prosecute any alcohol or drug abuse patient.[facility] SystemIn the event this information is protected by the Federal Confidentiality of Alcohol and Drug Abuse Patient Records regulations: The Federal rules restrict any use of the information to criminally investigate or prosecute any alcohol or drug abuse patient.[facility] Reason for Visit (unrecogniz ed section and [...] ECG 12 Lead Chris Antoine MD [address] [facility], [facility] [address] [place] [address] Referral ID Status Reason Start Date Expiration Date V isits Requested Visits Authorized [id number] Pending Review 12/28/2022 06/26/2023 1 1 Reason Comments F/U 6 months Reason Comments 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 3322 5 HEART FAILURE I50.42 [employer] NOTIFIED Reason Onset Date Comments Refill Request 02/11/2023 Reason Comments Diabetes Reason Comments 4 month follow up MARTINEZ; HYPOXEMIA Specialty Diagnoses / Procedures Referred By Contac t Referred To Contact Cardiology Diagnoses ICD (implantable cardioverter-defibrillator) in place Paroxysmal ventricular tachycardia (CMS/HCC) Procedures Cardiac device check - Remote alert Claus Browne MD [address] [facility] 3, [address] [place] [address] Par [id number] Cr [id number] [address] [employer] [facility] [address] [place] [address] Referral ID Status Reason Start Date Expiration Date Visits Requested Visits Authorized [id number] Authorized Perform Procedure 04/17/2023 04/16/2024 1 1 [...] (implantable cardioverter-defibrillator) in place Paroxysmal ventricular tachycardia ([facility]/HCC) Procedures Cardiac Device Check - In Clinic Claus Browne MD [address] [facility] 3, [address] [address] Referral ID Status Reason Start Date Expiration Date Visits Requested Visits Authorized [id number] Pending Review Perform Procedure 05/14/2023 05/13/2024 1 [...] (implantable cardioverter-defibrillator) in place Paroxysmal ventricular tachycardia ([facility]) Procedures Cardiac Device Check - Remote Claus Browne MD [address] [facility] 3, [address] [address] [place] [address] [address] [facility] [address] [place] [address] Referral ID Status Reason Start Date Expiration Date Visits Requested Visits Authorized [id number] Authorized Perform Procedure 07/17/2023 07/16/2024 10 10 Reason Onset Date Comments Community Monitoring Outreach 07/25/2023 Fo llow up Reason Onset Date Comments Community Monitoring Outreach 07/29/2023 Fo llow up Reason Onset Date Comments Community Monitoring Outreach 08/13/2023 Fo llow up Reason Onset Date Comments Community Monitoring Outreach 08/27/2023 Fo llow up Reason Onset Date Comments Community Monitoring Outreach 09/04/2023 CD M Reason Comments [facility] verbal orders. Reason Comments Patient Request Reason Comments [facility] Reason Comments Medicare Wellness Exam 4 [...] Procedures Ip Admission Yrn Hernandez MD [address] [place] [address] [address] [place] [phone] Referral ID Status Reason Start Date Expiration Date Visits Re quested Visits Authorized [id number] 1 1 Reason Comments 6 month f/u Specialty Diagnoses / Procedures Referred By Contac t Referred To Contact Cardiology Diagnoses ICD (implantable cardioverter-defibrillator) in place Paroxysmal ventricular tachycardia (Multi) Procedures Cardiac Device Check - In Clinic Claus Browne MD [address] [facility] 3, [address] [address] Referral ID Status Reason Start Date Expiration Date Visits Requested Visits Authorized [id number] Authorized Perform Procedure 05/14/2023 05/13/2024 2 2 [...] Care Teams (unrecognized sec tion and content) Nursing Home Director Relationship Specialty Start Date End Date Neel Turpin MD [address] [facility] [place] [address] PCP - General 06/17/09 Nursing Home Director Relationship Specialty Start Date End Date Neel Turpin MD [address] [facility] [address] PCP - General 06/17/09 Nursing Home Director Relationship Specialty Start Date End Date Neel Turpin MD [address] [facility] [address] PCP - General 06/17/09 Nursing Home Director Relationship Specialty Start Date End Date Neel Turpin MD [address] [facility] [address] PCP - General 06/17/09 Nursing Home Director Relationship Specialty Start Date End Date Neel Turpin MD [address] [facility] [address] PCP - General 06/17/09 Nursing Home Director Relationship Specialty Start Date End Date Neel Turpin MD [address] [facility] [address] PCP - General 06/17/09 Nursing Home Director Relationship Specialty Start Date End Date Neel Turpin MD [address] [facility] [address] PCP - General 06/17/09 Nursing Home Director Relationship Specialty Start Date End Date Neel Turpin MD [address] [facility] [address] PCP - General 06/17/09 Team Status: Inactive Member Role Status Dates Issa Bonilla MD Attending Provider Active Nursing Home Director Relationship Specialty Start Date End Date Neel Turpin MD [address] [facility] [address] PCP - General 06/17/09 Nursing Home Director Relationship Specialty Start Date End Date Neel Turpin MD [address] [facility] [address] PCP - General 06/17/09 Nursing Home Director Relationship Specialty Start Date End Date Neel Turpin MD [address] [facility] [address] PCP - General 06/17/09 Team Status: Active [...] Dr. Sivakumar Dinero MD Other Provider Active Nursing Home Director Relationship Specialty Start Date End Date Neel Turpin MD [address] [place] [address] PCP - General 06/17/09 Nursing Home Director Relationship Specialty Start Date End Date Neel Turpin MD [address] [place] [address] PCP - General 06/17/09 Nursing Home Director Relationship Specialty Start Date End Date Neel Turpin MD [address] [place] [address] PCP - General 06/17/09 Nursing Home Director Relationship Specialty Start Date End Date Neel Turpin MD [address] [place] [address] PCP - General 06/17/09 Nursing Home Director Relationship Specialty Start Date End Date Neel Turpin MD [address] [place] [address] PCP - General 06/17/09 Nursing Home Director Relationship Specialty Start Date End Date Neel Turpin MD [address] [facility] [address] PCP - General 03/18/18 Nursing Home Director Relationship Specialty Start Date End Date Neel Turpin MD [address] [facility] [address] PCP - General 06/17/09 Nursing Home Director Relationship Specialty Start Date End Date Neel Turpin MD [address] [facility] [address] PCP - General 03/18/18 Nursing Home Director Relationship Specialty Start Date End Date Neel Turpin MD [address] [facility] [address] PCP - General 06/17/09 Nursing Home Director Relationship Specialty Start Date End Date Neel Turpin MD [address] [facility] [address] PCP - General 06/17/09 Tessa Brock, [facility] [address] [facility] [place] [address] Pharmacist Pharmacy 02/14/23 Nursing Home Director Relationship Specialty Start Date End Date Neel Turpin MD [address] [facility] [address] PCP - General 06/17/09 Tessa Brock, [facility] [address] [facility] [place] [address] Pharmacist Pharmacy 02/14/23 Nursing Home Director Relationship Specialty Start Date End Date Neel Turpin MD [address] [place] [address] PCP - General 03/18/18 Nursing Home Director Relationship Specialty Start Date End Date Neel Turpin MD [address] [place] [address] PCP - General 03/18/18 Nursing Home Director Relationship Specialty Start Date End Date Neel Turpin MD [address] [place] [address] PCP - General 06/17/09 Tessa Brock, [facility] [address] [place] [address] Pharmacist Pharmacy 02/14/23 Nursing Home Director Relationship Specialty Start Date End Date Neel Turpin MD [address] [place] [address] PCP - General 06/17/09 Tessa Brock, [facility] [address] [place] [address] Pharmacist Pharmacy 02/14/23 Nursing Home Director Relationship Specialty Start Date End Date Neel Turpin MD [address] [place] [address] PCP - General 06/17/09 Tessa Brock, [facility] [address] [place] [address] Pharmacist Pharmacy 02/14/23 Nursing Home Director Relationship Specialty Start Date End Date Neel Turpin MD [address] [facility] [address] PCP - General 06/17/09 [facility] [address] [facility] [place] [address] Pharmacist Pharmacy 02/14/23 Annalisa Stephen, SYLVAIN [address] [place] [address] Surg Physician Asst 05/03/23 Nursing Home Director Relationship Specialty Start Date End Date Neel Turpin MD [address] [place] [address] PCP - General 06/17/09 [facility] [address] [facility] [place] [address] Pharmacist Pharmacy 02/14/23 Annalisa Stephen, SYLVAIN [address] [place] [address] Surg Physician Asst 05/03/23 Nursing Home Director Relationship Specialty Start Date End Date Neel Turpin MD [address] [facility] [address] PCP - General 06/17/09 [facility] [address] [facility] [place] [address] Pharmacist Pharmacy 02/14/23 Annalisa Stephen, SYLVAIN [address] [place] [address] Surg Physician Asst 05/03/23 Nursing Home Director Relationship Specialty Start Date End Date Neel Turpin MD [address] [facility] [address] PCP - General 03/18/18 Nursing Home Director Relationship Specialty Start Date End Date Neel Turpin MD [address] [facility] [address] PCP - General 06/17/09 [facility] [address] [facility] [place] [address] Pharmacist Pharmacy 02/14/23 Annalisa Stephen, RN [address] [place] [address] Surg Physician Asst 05/03/23 Nursing Home Director Relationship Specialty Start Date End Date Neel Turpin MD [address] [facility] [address] PCP - General 06/17/09 [facility] [address] [facility] [place] [address] Pharmacist Pharmacy 02/14/23 Annalisa Stephen, SYLVAIN [address] [place], [place] [id number] Surg Physician Asst 05/03/23 Nursing Home Director Relationship Specialty Start Date End Date Neel Turpin MD [address] [facility] [address] PCP - General 06/17/09 [facility] [address] [facility] [place] [address] Pharmacist Pharmacy 02/14/23 Annalisa Stephen, SYLVAIN [address] [place], [place] [id number] Surg Physician Asst 05/03/23 Nursing Home Director Relationship Specialty Start Date End Date Neel Turpin MD [address] [facility] [address] PCP - General 06/17/09 Tessa Brock, [facility] [address] [facility] [place] [address] Pharmacist Pharmacy 02/14/23 Annalisa Stephen, SYLVAIN [address] [place] [address] Surg Physician Asst 05/03/23 Nursing Home Director Relationship Specialty Start Date End Date Neel Turpin MD [address] [facility] [address] PCP - General 06/17/09 Tessa Brock, [facility] [address] [facility] [place] [address] Pharmacist Pharmacy 02/14/23 Annalisa Stephen, SYLVAIN [address] [place] [address] Surg Physician Asst 05/03/23 Nursing Home Director Relationship Specialty Start Date End Date Nele Turpin MD [address] [facility] [address] PCP - General 06/17/09 Tessa Brock, [facility] [address] [facility] [place] [address] Pharmacist Pharmacy 02/14/23 Annalisa Stephen, SYLVAIN [address] [place] [address] Surg Physician Asst 05/03/23 Nursing Home Director Relationship Specialty Start Date End Date Neel Turpin MD [address] [facility] [address] PCP - General 06/17/09 Tessa Brock, [facility] [address] [facility] [place] [address] Pharmacist Pharmacy 02/14/23 Annalisa Stephen, RN [address] [place] [address] Surg Physician Asst 05/03/23 Nursing Home Director Relationship Specialty Start Date End Date Neel Turpin MD [address] [place] [address] PCP - General 06/17/09 Tessa Brock, [facility] [address] [place] [address] Pharmacist Pharmacy 02/14/23 Annalisa Stephen, SYLVAIN [address] [place] [address] Surg Physician Asst 05/03/23 Nursing Home Director Relationship Specialty Start Date End Date Neel Turpin MD [address] [place] [address] PCP - General 06/17/09 Tessa Brock, [facility] [address] [place] [address] Pharmacist Pharmacy 02/14/23 Annalisa Stephen, SYLVAIN [address] [place] [address] Surg Physician Asst 05/03/23 Malissa Madison, SYLVAIN [address] [place] [address] Primary Care Photoengraving Etcher Apprentice 09/12/23 Nursing Home Director Relationship Specialty Start Date End Date Neel Turpin MD [address] [place] [address] PCP - General 06/17/09 Tessa Brock, [facility] [address] [place] [address] Pharmacist Pharmacy 02/14/23 Annalisa Stephen, SYLVAIN [address] [place], [place] [phone] Surg Physician Asst 05/03/23 Malissa Madison, SYLVAIN [address] [place], [place] [id number] Primary Care Photoengraving Etcher Apprentice 09/12/23 Nursing Home Director Relationship Specialty Start Date End Date Neel Turpin MD [address] [place] [address] PCP - General 06/17/09 [facility] [address] [place] [address] Pharmacist Pharmacy 02/14/23 Annalisa Stephen, SYLVAIN [address] [place] [address] Surg Physician Asst 05/03/23 Malissa Madison, SYLVAIN [address] [place], [place] [id number] Primary Care Photoengraving Etcher Apprentice 09/12/23 Nursing Home Director Relationship Specialty Start Date End Date Neel Turpin MD [address] [place] [address] PCP - General 06/17/09 Tessa Brock, [facility] [address] [place] [address] Pharmacist Pharmacy 02/14/23 Annalisa Stephen, SYLVAIN [address] [place], [place] [phone] Surg Physician Asst 05/03/23 Malissa Madison, SYLVAIN [address] [place], [place] [id number] Primary Care Photoengraving Etcher Apprentice 09/12/23 Nursing Home Director Relationship Specialty Start Date End Date Neel Turpin MD [address] [place] [address] PCP - General 06/17/09 Tessa Brock, [facility] [address] [facility] [place] [address] Pharmacist Pharmacy 02/14/23 Annalisa Stephen, SYLVAIN [address] [place] [address] Surg Physician Asst 05/03/23 Malissa Madison, SLYVAIN [address] [place] [address] Primary Care Photoengraving Etcher Apprentice 09/12/23 Nursing Home Director Relationship Specialty Start Date End Date Neel Turpin MD [address] [place] [address] PCP - General 06/17/09 Tessa Brock, [facility] [address] [place] [address] Pharmacist Pharmacy 02/14/23 Nursing Home Director Relationship Specialty Start Date End Date Neel Turpin MD [address] [facility] [address] PCP - General 06/17/09 Tessa Brock, [facility] [address] [facility] [place] [address] Pharmacist Pharmacy 02/14/23 Nursing Home Director Relationship Specialty Start Date End Date Neel Turpin MD [address] [facility] [address] PCP - General 06/17/09 Tessa Brock, [facility] [address] [facility] [place] [address] Pharmacist Pharmacy 02/14/23 Nursing Home Director Relationship Specialty Start Date End Date Neel Turpin MD [address] [facility] [address] PCP - General 06/17/09 [facility] [address] [facility] [place] [address] Pharmacist Pharmacy 02/14/23 Annalisa Stephen, SYLVAIN [address] [place] [address] Surg Physician Asst 05/03/2309/17 Malissa Madison, SYLVAIN [address] [place] [address] Primary Care Photoengraving Etcher Apprentice 09/12/23 10/12/23 Nursing Home Director Relationship Specialty Start Date End Date Neel Turpin MD [address] [place] [address] PCP - General 06/17/09 [facility] [address] [facility] [place] [address] Pharmacist Pharmacy 02/14/23 Nursing Home Director Relationship Specialty Start Date End Date Neel Turpin MD [address] [place] [address] PCP - General 06/17/09 Nursing Home Director Relationship Specialty Start Date End Date Neel Turpin MD [address] [place] [address] PCP - General 06/17/09 [facility] [address] [facility] [place] [address] Pharmacist Pharmacy 02/14/23 Nursing Home Director Relationship Specialty Start Date End Date Neel Turpin MD [address] [place] [address] PCP - General 03/18/18 Nursing Home Director Relationship Specialty Start Date End Date Neel Turpin MD [address] [place] [address] PCP - General 03/18/18 Nursing Home Director Relationship Specialty Start Date End Date Neel Turpin MD [address] [place] [address] PCP - General 03/18/18 Nursing Home Director Relationship Specialty Start Date End Date Neel Turpin MD [address] [place] [address] PCP - General 06/17/09 Tessa Brock, [facility] [address] [place] [address] Pharmacist Pharmacy 02/14/23 Kacy Mary, TIRE REPAIRMAN.TECHNICAL STAFF ENGINEER [address] [place] [address] President Sales And Marketing Internal Medicine 02/24/24 Nursing Home Director Relationship Specialty Start Date End Date Neel Turpin MD [address] [place] [address] PCP - General 06/17/09 Tessa Brock, [facility] [address] [place] [address] Pharmacist Pharmacy 02/14/23 Kacy Mary, TIRE REPAIRMAN.TECHNICAL STAFF ENGINEER [address] [place] [address] President Sales And Marketing Internal Medicine 02/24/24 Nursing Home Director Relationship Specialty Start Date End Date Neel Turpin MD [address] [place] [address] PCP - General 03/18/18 Nursing Home Director Relationship Specialty Start Date End Date Neel Turpin MD [address] [place] [address] PCP - General 06/17/09 [facility] [address] [place] [address] Pharmacist Pharmacy 02/14/23 Kacy Mary, TIRE REPAIRMAN.TECHNICAL STAFF ENGINEER [address] [place] [address] President Sales And Marketing Internal Medicine 02/24/24 Nursing Home Director Relationship Specialty Start Date End Date Neel Turpin MD [address] [place] [address] PCP - General 06/17/09 [facility] [address] [place] [address] Pharmacist Pharmacy 02/14/23 Kacy Mary, TIRE REPAIRMAN.TECHNICAL STAFF ENGINEER [address] [place] [address] President Sales And Marketing Internal Medicine 02/24/24 Nursing Home Director Relationship Specialty Start Date End Date Neel Turpin MD [address] [place] [address] PCP - General 06/17/09 Tessa Brock, [facility] [address] [place] [address] Pharmacist Pharmacy 02/14/23 Kacy Mary, TIRE REPAIRMAN.TECHNICAL STAFF ENGINEER [address] [place] [address] President Sales And Marketing Internal Medicine 02/24/24 Nursing Home Director Relationship Specialty Start Date End Date Neel Turpin MD [address] [place] [address] PCP - General 06/17/09 Tessa Brock, [facility] [address] [place] [address] Pharmacist Pharmacy 02/14/23 Kacy Mary, TIRE REPAIRMAN.TECHNICAL STAFF ENGINEER [address] [place] [address] President Sales And Marketing Internal Medicine 02/24/24 Nursing Home Director Relationship Specialty Start Date End Date Neel Turpin MD [address] [place] [address] PCP - General 03/18/18 Nursing Home Director Relationship Specialty Start Date End Date Neel Turpin MD [address] [place] [address] PCP - General 06/17/09 Tessa Brock, [facility] [address] [place] [address] Pharmacist Pharmacy 02/14/23 Kacy Mary, TIRE REPAIRMAN.TECHNICAL STAFF ENGINEER [address] [place] [address] President Sales And Marketing Internal Medicine 02/24/24 Nursing Home Director Relationship Specialty Start Date End Date Neel Turpin MD [address] [place] [address] PCP - General 06/17/09 [facility] [address] [place] [address] Pharmacist Pharmacy 02/14/23 Kacy Mary, TIRE REPAIRMAN.TECHNICAL STAFF ENGINEER [address] [place] [address] President Sales And Marketing Internal Medicine 02/24/24 Nursing Home Director Relationship Specialty Start Date End Date Neel Turpin MD [address] [place] [address] PCP - [facility] [address] [place] [address] Pharmacist Pharmacy 02/14/23 Kacy Mary, TIRE REPAIRMAN.TECHNICAL STAFF ENGINEER [address] [place] [address] President Sales And Marketing Internal Medicine 02/24/24 Nursing Home Director Relationship Specialty Start Date End Date Neel Turpin MD [address] [place] [address] PCP - General [facility]17[facility] [address] [place] [address] Pharmacist Pharmacy 02/14/23 Kacy Mary, TIRE REPAIRMAN.TECHNICAL STAFF ENGINEER [address] [place] [address] President Sales And Marketing Internal Medicine 02/24/24 Nursing Home Director Relationship Specialty Start Date End Date Neel Turpin MD [address] [place] [address] PCP - General 06/17/09 Tessa Brock, [facility] [address] [place] [address] Pharmacist Pharmacy 02/14/23 Kacy Mary, TIRE REPAIRMAN.TECHNICAL STAFF ENGINEER [address] [place] [address] President Sales And Marketing Internal Medicine 02/24/24 Nursing Home Director Relationship Specialty Start Date End Date Neel Turpin MD [address] [place] [address] PCP - General 06/17/09 Tessa Brock, [facility] [address] [place] [address] Pharmacist Pharmacy 02/14/23 Kacy Mary, TIRE REPAIRMAN.TECHNICAL STAFF ENGINEER [address] [place] [address] President Sales And Marketing Internal Medicine 02/24/24 Nursing Home Director Relationship Specialty Start Date End Date Neel Turpin MD [address] [place] [address] PCP - General 06/17/09 Tessa Brock, [facility] [address] [place] [address] Pharmacist Pharmacy 02/14/23 Kacy Mary, DAHLIA.TECHNICAL STAFF ENGINEER [address] [place] [address] President Sales And Marketing Internal Medicine 02/24/24 <item> Privacy Markings (unrecogniz [...] Luis Darling RRT) 0627 (Given - Provider: Robny D Natalie, INSPECTOR HOT FORGINGS)1900 (Due) docusate sodium (Colace) capsule 100 mg [...] 0945 (Canceled Entry - Provider: Lizeth Shane, GLOBAL COORDINATOR)1832 (Given - Provider: Yue Hicks, GLOBAL COORDINATOR) 0611 (Given - Provider: Lizeth Shane, GLOBAL COORDINATOR)1839 (Given - Provider: Luis Darling, ROS) 0620 (Given - Provider: Robyn Estrada, INSPECTOR HOT FORGINGS)1900 (Due) furosemide (Lasix) tablet 20 mg (CANCELED) 20 mg, oral, Daily, First dose on Sat09/09/23 at 0945, On hold since Sat09/10/2023 at 0826 until manually unheld 1056 (Given - Provider: Kang Faust RN) 0826 (Held by provider - Provider: Monserrat Prince APRN-TECHNICAL STAFF ENGINEER - Reason: Post-procedure)0900 (Not Given - Provider: Kang Fuast RN - Reason: See Provider Order) 0900 (Not Given - Provider: Sravani Villarreal RN - Reason: See Provider Order)1020 (Unheld by provider - Provider: Gregory Gutierrez APRN-TECHNICAL STAFF ENGINEER) furosemide (Lasix) tablet 20 mg 20 mg, [...] RN) 0820 (Given - Provider: Kang Faust RN)204 (Given - Provider: Casie Montero RN) [...] Montero, SYLVAIN) 0808 (Given - Provider: Sravani Villarrela RN)1500 (Due)2100 (Due) insulin glargine (Lantus) injection [...] 0808 (Given - Provider: Sravani Villarreal RN) [id number] (Draximage MAA) injection 4.4 millicurie (COMPLETED) 4.4 [...] from now.)1654 (Rate/Dose Verify - Provider: Kang Fuast RN) sodium chloride 0.9% infusion () 75 mL/hr, intravenous, Continuous, Starting on Sat09/10/23 at 0745, For 12 hours 0820 (New Bag - Provider: Kang Faust RN)1999 (Stopped - Provider: Casie Montero RN) PRN Medication Order 09/09/2023 09/10/2023 09/11/2023 [...] unable to eat or drink. HYDROcodone-acetaminophe n ([place]) 5-325 mg per tablet 1 tablet 1 [...] RRT)1044 (Rate Verify Medical Gas - Provider: Lzieth Shane RRT)1846 (Start - Provider: Luis Darling [...] BE BASED ON THE PRIMARY CLINICAL RECORDS. [facility]. provides no warranty or guarantee of the accuracy or completeness of information in this document.
[2024-09-27 09:55] LABS: Troponin T High Sens 4 HR 47 ng/L (<=14)
[2024-09-27 10:03] LABS: Magnesium 2.1 mg/dL (1.5-2.2)
[2024-09-27] MEDS: fentaNYL 100 MCG/2 ML Ampul 25 MCG IV (10:53)
[2024-09-27] MEDS: Heparin Injection (Vial) 5,000 UNIT/ML VIAL 5000 UNIT SC ×3 (10:54→22:55)
[2024-09-27] MEDS: HYDROmorphone 0.5 MG/0.5 ML SYRINGE 0.2 MG IV ×2 (14:10→22:11)
[2024-09-27] MEDS: Budesonide Respules 0.5 MG/2 ML AMPUL.NEB. INHALATION (18:58)
[2024-09-27] MEDS: 0.9% Saline Lock 10 ML Syringe IV (22:12)
[2024-09-27] MEDS: MELATONIN 10 MG TABLET PO (22:54)
[2024-09-28] VITALS (15 sets, daily range): BP systolic 96–136; BP diastolic 62–98; PULSE 88–106; RESP 16–20; TEMP 36.6–37.3; O2SAT 90–100; BMI 49.4
[2024-09-28 06:20] LABS: AST(SGOT) 19 U/L (<=31); Alanine Aminotransfer ALT/SGPT 20 U/L (<=34); Albumin, Serum 3.6 g/dL (3.4-4.8); Alkaline Phosphatase 85 U/L (35-104); Anion Gap 15 (5-15); BUN 48 mg/dL (4-19); BUN/Creat Ratio 17.1 RATIO (10-20); Calcium,Total 9.6 mg/dL (7.6-11.0); Carbon Dioxide 25.2 mmol/L (21.0-32.0); Chloride 95 mmol/L (98-108); Cholesterol 66 mg/dL (<=200); Estimated Creatinine Clearance 20.90 ml/min (50-250); Globulin 3.1 g/dL (2.2-4.2); Glucose 145 mg/dL (70-99); Low Density Lipoprotein Calc. 11 mg/dL; Potassium 4.2 mmol/L (3.3-5.1); Triglycerides 53 mg/dL; Very Low Density Lipoprotein 11 mg/dL (5-40); cholesterol:hdl ratio screen 1.49
[2024-09-28] MEDS: Heparin Injection (Vial) 5,000 UNIT/ML VIAL 5000 UNIT SC ×3 (06:35→23:06)
[2024-09-28] MEDS: Budesonide Respules 0.5 MG/2 ML AMPUL.NEB. INHALATION ×2 (07:01→20:08)
[2024-09-28 08:16] LABS: Hematocrit 32.8 % (37-47); Hemoglobin 10.5 g/dL (12.0-15.0); Mean Corp Hgb Conc 32.0 g/dL (32-36); Mean Corpuscular Volume 96.8 fL (81-99); Mean Platelet Vol. 10.2 fl (6.2-12.0); Platelet Count 185 K/mm3 (150-450); RBC Distribution Width CV 16.5 % (11.6-14.6); RBC Distribution Width SD 58.3 fl (35.1-43.9); Red Blood Count 3.39 M/mm3 (4.2-5.4); White Blood Count 10.4 K/mm3 (4.4-11.0)
[2024-09-28 08:17] LABS: Immature Granulocytes Count 0.030 X10^3/uL (0.0-0.0)
--- NOTE | 2024-09-28 09:38 | PCM.PN.HOSP ---
Reason for Visit Chief Complaint: Chest pain Subjective Subjective Patient is an 79-year-old lady with recent hospitalization for pneumonia who presented emergency department after patient complained of chest discomfort. Patient was found to have pulmonary vascular congestion on admission admitted to a monitored bed for further management Objective Data Objective Data Vital Signs: Vital Signs Temp Pulse Resp BP Pulse Ox O2 Del Method O2 Flow Rate 97.9 F 104 H 18 96/66 98 Nasal Cannula 2 09/28/24 09:37 09/28/24 09:37 09/28/24 09:37 09/28/24 09:37 09/28/24 09:37 09/28/24 09:37 09/28/24 09:37 Oxygen Flow Rate (L/min) 2 Oxygen Delivery Method Nasal Cannula Weight: 126.5 kg Body Mass Index (BMI) 49.4 Intake & Output: Intake and Output for Last 24 Hours 09/26/24 09/27/24 09/28/24 23:59 23:59 23:59 Intake Total 650 / 1130 720 / 720 Output Total 700 / 1300 1000 / 1000 Balance -50 / -170 -280 / -280 Lab / Micro Data 09/28/24 04:46 09/28/24 04:46 Labs: Laboratory Results - last 24 hr 09/27/24 04:22: Magnesium 2.1 09/27/24 09:20: Troponin T Hi Sens 4Hr 47 H 09/27/24 10:35: POC Glucose 102 09/27/24 16:19: POC Glucose 141 H 09/27/24 21:52: POC Glucose 176 H 09/28/24 04:46: WBC 10.4, RBC 3.39 L, Hgb 10.5 L, Hct 32.8 L, MCV 96.8, MCH 31.0, MCHC 32.0, RDW Std Deviation 58.3 H, RDW Coeff of Yoel 16.5 H, Plt Count 185, MPV 10.2, Immature Gran % (Auto) 0.300, Neut % (Auto) 82.9 H, Lymph % (Auto) 6.6 L, [place] % (Auto) 9.3, Eos % (Auto) 0.6, Baso % (Auto) 0.3, Absolute Neuts (auto) 8.6 H, Absolute Lymphs (auto) 0.69 L, Sodium 135, Potassium 4.2, Chloride 95 L, Carbon Dioxide 25.2, Anion Gap 15, BUN 48 H, Creatinine 2.78 H, Estim Creat Clear Calc 20.90 L, Est GFR (MDRD) Non-Af 17 L, BUN/Creatinine Ratio 17.1, Glucose 145 H, Calcium 9.6, Total Bilirubin 0.53, AST 19, ALT 20, Alkaline Phosphatase 85, Total Protein 6.8, Albumin 3.6, Globulin 3.1, Albumin/Globulin Ratio 1.2, Triglycerides 53, Cholesterol 66, LDL Cholesterol, Calc 11, VLDL Cholesterol 11, HDL Cholesterol 45, Cholesterol/HDL Ratio 1.49, TSH 2.740 09/28/24 06:33: POC Glucose 132 H Physical Exam Narrative GENERAL: cooperative HEENT: Atraumatic; normocephalic EYES; Anicteric, Normal Conjunctiva NECK; supple, normal thyroid, RESPIRATORY: Diminished to auscultation CARDIOVASCULAR: Regular S1 S2, GI: soft, normoactive bowel sounds, : No Renal angle tenderness; EXTREMITIES: Bipedal edema edema, no clubbing, MUSCULOSKELETAL: no muscle wasting NEURO: Awake; no lateralizing signs; tremors SKIN: No Rash PSYCH; Flat affect Const Constitutional Narrative: Elderly female, class III obesity, fatigued and chronically ill-appearing, otherwise sitting back fairly comfortably in bed, conversing normally, in no acute distress. Resp Resp Narrative: Breathing comfortably on room air at rest. Diminished breath sounds noted in bilateral lung bases with mild crackles noted in mid lung zones bilaterally. No wheezing noted. Cardio Cardio Narrative: Tachycardic, regular rhythm. Assessment & Plan Assessment/Plan (1) Chest pain: (2) Acute on chronic heart failure with preserved ejection fraction (HFpEF): PLAN: Plan Patient is an 79-year-old lady with recent hospitalization for pneumonia who presented emergency department after patient complained of chest discomfort. Patient was found to have pulmonary vascular congestion on admission admitted to a monitored bed for further management 1. Acute congestive heart failure?unspecified at this point -Admitted to monitored bed treatment initiated with strict input and output, daily weights, fluid restriction, low-sodium diet as well as diuretic therapy echo ordered for EF assessment 2. Chest pain Patient troponin on admission was slightly elevated at 47. Echo ordered to assess for regional wall motion abnormalities 3. Elevated D-dimer ? CTA could not be performed given patient's impaired kidney function. VQ scan subsequently ordered for further eval 4. Chronic hypoxic respiratory failure ? Secondary to COPD patient is on 2 L of oxygen at night 5. Anemia ? Secondary to chronic disorder monitoring H&H and transfuse if patient becomes symptomatic or hemoglobin falls below 7 6. Diabetes mellitus type II -patient's oral hypoglycemics held. Placed on long acting insulin, Accu-Cheks a.c. and at bedtime and covered with sliding scale insulin 7. Obstructive sleep apnea ? Per history patient is not on PAP therapy 8. Hypertension ? Blood pressure controlled, home medications continued with dose adjustment as needed 9. Dyslipidemia ?Patient is on statin therapy, continued at home dose 1. Chronic kidney disease stage IV ? Patient kidney function at baseline 11. Depression with anxiety ? Did continue patient antidepressant 12. Class III obesity with BMI of 49.4 ? Complicating care weight loss advised 13. DVT prophylaxis ? Subcu 14. Physical deconditioning ? Requested for PT OT eval and social welfare research worker to assist with discharge planning Time spent in the patient's overall evaluation,decision-making process, review of diagnostic data, adjustment of management, discussion with other providers, nursing nursing and ancillary staff involved in patient's care documentation, 52 Minutes Charges/Coding Visit Charges Inpatient E&M: 43440 Subs Hosp L3
[2024-09-28] MEDS: Metoprolol(XL)Succ 50 MG Tablet PO (09:40)
[2024-09-28] MEDS: Insulin Glargine-YFGN 100 UNIT/ML Pen 35 UNIT SC (09:40)
[2024-09-28] MEDS: 0.9% Saline Lock 10 ML Syringe IV ×2 (09:41→18:19)
[2024-09-28] MEDS: Senna Tablet 1 TABLET PO (09:42)
--- NOTE | 2024-09-28 10:30 | NM_ITS ---
PROCEDURE: LUNG SCAN VENT/PERF REASON FOR EXAM: EVAL FOR PE TECHNIQUE: Nuclear medicine V/Q scan using 5.6 mCi Tc-99m MAA intravenously for perfusion imaging and 52 mCi Tc-99m DTPA aerosol for ventilation imaging. Anterior, posterior, right and left lateral, AVILEZ, GIBRALTARIAN, RPO, and LPO ventilation and perfusion images. COMPARISON: Prior chest radiograph dated September 27, 2024. FINDINGS: Ventilation images: Scattered subsegmental defects. Perfusion images: Unremarkable NM/Lung Scan Vent/Perf IMPRESSION: Low probability scan for pulmonary embolism. Mild airway disease. Reading Location: [facility]
--- NOTE | 2024-09-28 12:22 | CASEMGMT ---
VILLALOBOS Met with patient to complete VILLALOBOS form. VILLALOBOS form and its content were verbally explained and patient's questions were answered to the best of my ability.? Patient voiced understanding and signed VILLALOBOS form.? Patient provided a copy of signed VILLALOBOS form and original placed in patient's chart.? Patient had no further questions. Dhara Holguin, Discharge Planning Asst
[2024-09-29] VITALS (12 sets, daily range): BP systolic 106–117; BP diastolic 62–68; PULSE 84–95; RESP 16–18; TEMP 36.3–36.7; O2SAT 93–99; BMI 49.2
[2024-09-29] MEDS: Heparin Injection (Vial) 5,000 UNIT/ML VIAL 5000 UNIT SC ×3 (06:29→22:19)
[2024-09-29] MEDS: Budesonide Respules 0.5 MG/2 ML AMPUL.NEB. INHALATION ×2 (06:38→19:00)
--- NOTE | 2024-09-29 07:12 | PCM.PN.HOSP ---
Reason for Visit Chief Complaint: Chest pain Subjective Subjective Patient is an 79-year-old lady currently being managed as a case of congestive heart failure patient is on diuretic therapy and appears to be responding to treatment patient remains profoundly weak and is scheduled to be assessed by PT. Did discuss with patient about possibility of being discharged to half-way facility for rehab prior to going home Objective Data Objective Data Vital Signs: Vital Signs Temp Pulse Resp BP Pulse Ox O2 Del Method O2 Flow Rate 97.4 F L 85 18 117/66 94 Nasal Cannula 2 09/29/24 06:20 09/29/24 06:39 09/29/24 06:39 09/29/24 06:28 09/29/24 06:39 09/29/24 06:39 09/29/24 06:39 Oxygen Flow Rate (L/min) 2 Oxygen Delivery Method Nasal Cannula Weight: 126.1 kg Body Mass Index (BMI) 49.2 Intake & Output: Intake and Output for Last 24 Hours 09/27/24 09/28/24 09/29/24 23:59 23:59 23:59 Intake Total 650 / 1130 1770 / 1770 0 / 0 Output Total 700 / 1300 2600 / 2600 500 / 500 Balance -50 / -170 -830 / -830 -500 / -500 Lab / Micro Data 09/29/24 06:49 09/29/24 06:49 Labs: Laboratory Results - last 24 hr 09/28/24 04:46: WBC 10.4, RBC 3.39 L, Hgb 10.5 L, Hct 32.8 L, MCV 96.8, MCH 31.0, MCHC 32.0, RDW Std Deviation 58.3 H, RDW Coeff of Yoel 16.5 H, Plt Count 185, MPV 10.2, Immature Gran % (Auto) 0.300, Neut % (Auto) 82.9 H, Lymph % (Auto) 6.6 L, [place] % (Auto) 9.3, Eos % (Auto) 0.6, Baso % (Auto) 0.3, Absolute Neuts (auto) 8.6 H, Absolute Lymphs (auto) 0.69 L 09/28/24 12:13: POC Glucose 171 H 09/28/24 16:20: POC Glucose 206 H 09/28/24 23:08: POC Glucose 168 H 09/29/24 06:26: POC Glucose 102 Radiography Diagnostic Testing: Radiology Impression Echocardiogram 09/27/24 06:29 Interpretation Summary Moderately dilated left ventricular cavity. Severe generalized LV hypokinesis. Estimated LVEF 30%. Stage II diastolic dysfunction. Moderate to severe RV systolic dysfunction. Mild (1+) mitral valve insufficiency. Mild to moderate (1-2+) tricuspid valve insufficiency. Right ventricular systolic pressure estimated to be 40 mmHg. Small left pleural effusion. Ordering Physician: Sean Araujo Performed By: Nain Ye RCS Venous Doppler Study 09/27/24 06:29 Interpretation Summary Deep veins of the bilateral lower extremities are patent and compressible segmentally. There is no evidence of bilateral lower extremity deep vein thrombosis. Limited study due to patient tolerance. Ordering Physician: Sean Araujo Referring Physician: Neel Ng M.D. Performed By: Chantell Albert RVT Lung Scan-VQ NM 09/28/24 10:30 IMPRESSION: Low probability scan for pulmonary embolism. Mild airway disease. Reading Location: [place] [address] Physical Exam Narrative GENERAL: cooperative HEENT: Atraumatic; normocephalic EYES; Anicteric, Normal Conjunctiva NECK; supple, normal thyroid, RESPIRATORY: Diminished to auscultation CARDIOVASCULAR: Regular S1 S2, GI: soft, normoactive bowel sounds, : No Renal angle tenderness; EXTREMITIES: Bipedal edema edema, no clubbing, MUSCULOSKELETAL: no muscle wasting NEURO: Awake; no lateralizing signs; tremors SKIN: No Rash PSYCH; Flat affect Assessment & Plan Assessment/Plan (1) Chest pain: (2) Acute on chronic heart failure with preserved ejection fraction (HFpEF): PLAN: Plan Patient is an 79-year-old lady with recent hospitalization for pneumonia who presented emergency department after patient complained of chest discomfort. Patient was found to have pulmonary vascular congestion on admission admitted to a monitored bed for further management 1. Acute congestive heart failure?unspecified at this point -Admitted to monitored bed treatment initiated with strict input and output, daily weights, fluid restriction, low-sodium diet as well as diuretic therapy echo ordered for EF assessment ? 09/29/2024; patient is net negative fluid balance of 1 L over the past 24. Will continue with current dose of diuretic therapy 2. Chest pain Patient troponin on admission was slightly elevated at 47. Echo ordered to assess for regional wall motion abnormalities 3. Elevated D-dimer ? CTA could not be performed given patient's impaired kidney function. VQ scan subsequently ordered for further eval 4. Chronic hypoxic respiratory failure ? Secondary to COPD patient is on 2 L of oxygen at night 5. Anemia ? Secondary to chronic disorder monitoring H&H and transfuse if patient becomes symptomatic or hemoglobin falls below 7 6. Diabetes mellitus type II -patient's oral hypoglycemics held. Placed on long acting insulin, Accu-Cheks a.c. and at bedtime and covered with sliding scale insulin 7. Obstructive sleep apnea ? Per history patient is not on PAP therapy 8. Hypertension ? Blood pressure controlled, home medications continued with dose adjustment as needed 9. Dyslipidemia ?Patient is on statin therapy, continued at home dose 1. Chronic kidney disease stage IV ? Patient kidney function at baseline 11. Depression with anxiety ? Did continue patient antidepressant 12. Class III obesity with BMI of 49.4 ? Complicating care weight loss advised 13. DVT prophylaxis ? Subcu 14. Physical deconditioning ? Requested for PT OT eval and licensed clinical social worker to assist with discharge planning Charges/Coding Visit Charges Inpatient E&M: 78336 Subs Hosp L2
[2024-09-29 07:19] LABS: Hematocrit 33.1 % (37-47); Hemoglobin 10.5 g/dL (12.0-15.0); Immature Granulocytes Count 0.030 X10^3/uL (0.0-0.0); Mean Corp Hgb Conc 31.7 g/dL (32-36); Mean Corpuscular Volume 96.5 fL (81-99); Mean Platelet Vol. 9.6 fl (6.2-12.0); NRBC Flagged by Analyzer 0 % (0-5); Platelet Count 179 K/mm3 (150-450); RBC Distribution Width CV 16.4 % (11.6-14.6); RBC Distribution Width SD 57.7 fl (35.1-43.9); Red Blood Count 3.43 M/mm3 (4.2-5.4); White Blood Count 9.2 K/mm3 (4.4-11.0)
[2024-09-29 07:39] LABS: Anion Gap 13 (5-15); BUN 50 mg/dL (4-19); BUN/Creat Ratio 17.9 RATIO (10-20); Calcium,Total 9.6 mg/dL (7.6-11.0); Carbon Dioxide 28.8 mmol/L (21.0-32.0); Chloride 93 mmol/L (98-108); Estimated Creatinine Clearance 20.79 ml/min (50-250); Glucose 88 mg/dL (70-99); Magnesium 2.2 mg/dL (1.5-2.2); Potassium 4.2 mmol/L (3.3-5.1)
[2024-09-29] MEDS: Metoprolol(XL)Succ 50 MG Tablet PO (09:29)
--- NOTE | 2024-09-29 13:21 | CASEMGMT ---
Social Work SW created in [facility] a list of [facility] facilities in network w/pt's insurance, in pt's preferred geographic area and complete w/quality and resource use data. SILVIA Cantu
--- NOTE | 2024-09-29 13:30 | CASEMGMT ---
SYLVAIN LINTON Face to Face with patient for initial transition planning/care coordination assessment. SYLVAIN LINTON introduced self and role at [facility]. Patient lying in bed, alert and oriented. Patient willing to participate in assessment and is able to answer all questions appropriately. Care providers, pharmacy, and demographics verified. Strata:3 PCP: Hernandez Specialists: Aspen, cushion maker hand; Arash, Pharmacy Resident ; Jose Angel, director clinical data Preferred Pharmacy: [facility] [place] [facility] Benefit: yes Living Will/HPOA: yes, lili Herbert LNOK: sons Living Arrangements: Patient lives alone in a first floor apartment with no steps to enter. Patient was independent at home. Transportation: son DME/HHC: Patient has shower chair, grab bars, walker, rollator, medical alert, pulse ox, glucometer, and home oxygen through [facility] at only. Patient has had [facility] in the past. Patient has been to [facility] in the past. SYLVAIN LINTON discussed progress with therapy and recommending SNF at discharge. Patient is agreeable to SNF at discharge, SNF list provided. Patient asked SYLVAIN LINTON to call [facility] to review SNF list. RN ROYER called [facility] and reviewed SNF list. Son states he prefers 1. [facility] 2. [facility] 3. [facility]. Son had no further questions or concerns. SYLVAIN LINTON updated patient and is agreeable to preferences and would like CM to send referral. Patient states he has no further needs or concerns at this time. SYLVAIN LINTON updated discharge emergency planning and response manager to send referral to [facility]. CM to follow for discharge planning needs that may arise. Disposition Plan: SNF pending acceptance. Chantell TAN, RN, CM
--- NOTE | 2024-09-29 14:30 | CASEMGMT ---
Addendum entered by Dhara Holguin 09/29/24 16:27: [facility] has accepted. Dhara Holguin DC Planning Asst. Original Note: Discharge Planning Referral sent to [facility]. Dhara Holguin DC Planning Asst.
[2024-09-30] VITALS (15 sets, daily range): BP systolic 109–127; BP diastolic 63–80; PULSE 85–96; RESP 16–20; TEMP 36.1–36.8; O2SAT 88–100; BMI 49.4
[2024-09-30] MEDS: Heparin Injection (Vial) 5,000 UNIT/ML VIAL 5000 UNIT SC ×3 (06:22→22:09)
[2024-09-30] MEDS: Budesonide Respules 0.5 MG/2 ML AMPUL.NEB. INHALATION ×2 (06:49→20:47)
[2024-09-30 06:57] LABS: Hematocrit 32.0 % (37-47); Hemoglobin 10.2 g/dL (12.0-15.0); Immature Granulocytes Count 0.050 X10^3/uL (0.0-0.0); Mean Corp Hgb Conc 31.9 g/dL (32-36); Mean Corpuscular Volume 95.5 fL (81-99); Mean Platelet Vol. 9.9 fl (6.2-12.0); NRBC Flagged by Analyzer 0 % (0-5); Platelet Count 203 K/mm3 (150-450); RBC Distribution Width CV 16.2 % (11.6-14.6); RBC Distribution Width SD 56.5 fl (35.1-43.9); Red Blood Count 3.35 M/mm3 (4.2-5.4); White Blood Count 8.3 K/mm3 (4.4-11.0)
[2024-09-30 07:31] LABS: Anion Gap 14 (5-15); BUN 53 mg/dL (4-19); BUN/Creat Ratio 19.0 RATIO (10-20); Calcium,Total 9.6 mg/dL (7.6-11.0); Carbon Dioxide 28.4 mmol/L (21.0-32.0); Chloride 91 mmol/L (98-108); Estimated Creatinine Clearance 20.74 ml/min (50-250); Glucose 153 mg/dL (70-99); Potassium 4.3 mmol/L (3.3-5.1)
--- NOTE | 2024-09-30 08:32 | PCM.PN.HOSP ---
Reason for Visit Chief Complaint: Chest pain Subjective Subjective Did adjust patient Lasix dose in view of worsening kidney function Objective Data Objective Data Vital Signs: Vital Signs Temp Pulse Resp BP Pulse Ox O2 Del Method O2 Flow Rate 97.0 F L 88 16 120/78 100 Nasal Cannula 2 09/30/24 06:21 09/30/24 06:50 09/30/24 06:50 09/30/24 06:22 09/30/24 06:50 09/30/24 08:22 09/30/24 08:22 Oxygen Flow Rate (L/min) 2 Oxygen Delivery Method Nasal Cannula Weight: 126.4 kg Body Mass Index (BMI) 49.4 Intake & Output: Intake and Output for Last 24 Hours 09/28/24 09/29/24 09/30/24 23:59 23:59 23:59 Intake Total 1770 / 1770 200 / 200 Output Total 2600 / 2600 500 / 500 Balance -830 / -830 -300 / -300 Lab / Micro Data 09/30/24 06:17 09/30/24 06:17 Labs: Laboratory Results - last 24 hr 09/29/24 09:45: POC Glucose 103 09/29/24 11:22: POC Glucose 140 H 09/29/24 16:54: POC Glucose 224 H 09/29/24 22:13: POC Glucose 207 H 09/30/24 06:17: WBC 8.3, RBC 3.35 L, Hgb 10.2 L, Hct 32.0 L, MCV 95.5, MCH 30.4, MCHC 31.9 L, RDW Std Deviation 56.5 H, RDW Coeff of Yoel 16.2 H, Plt Count 203, MPV 9.9, Immature Gran % (Auto) 0.600, Neut % (Auto) 76.4 H, Lymph % (Auto) 10.1 L, [place] % (Auto) 8.4, Eos % (Auto) 4.1, Baso % (Auto) 0.4, Absolute Neuts (auto) 6.3, Absolute Lymphs (auto) 0.84, Nucleated RBC % 0, Sodium 133, Potassium 4.3, Chloride 91 L, Carbon Dioxide 28.4, Anion Gap 14, BUN 53 H, Creatinine 2.80 H, Estim Creat Clear Calc 20.74 L, Est GFR (MDRD) Non-Af 17 L, BUN/Creatinine Ratio 19.0, Glucose 153 H, Calcium 9.6 09/30/24 06:21: POC Glucose 163 H Physical Exam Narrative GENERAL: cooperative HEENT: Atraumatic; normocephalic EYES; Anicteric, Normal Conjunctiva NECK; supple, normal thyroid, RESPIRATORY: Diminished to auscultation CARDIOVASCULAR: Regular S1 S2, GI: soft, normoactive bowel sounds, : No Renal angle tenderness; EXTREMITIES: Bipedal edema edema, no clubbing, MUSCULOSKELETAL: no muscle wasting NEURO: Awake; no lateralizing signs; tremors SKIN: No Rash PSYCH; Flat affect Assessment & Plan Assessment/Plan (1) Chest pain: (2) Acute on chronic heart failure with preserved ejection fraction (HFpEF): PLAN: Plan Patient is an 79-year-old lady with recent hospitalization for pneumonia who presented emergency department after patient complained of chest discomfort. Patient was found to have pulmonary vascular congestion on admission admitted to a monitored bed for further management 1. Acute congestive heart failure?with decreased ejection fraction -Admitted to monitored bed treatment initiated with strict input and output, daily weights, fluid restriction, low-sodium diet as well as diuretic therapy echo ordered for EF assessment ? 09/29/2024; patient is net negative fluid balance of 1 L over the past 24. Will continue with current dose of diuretic therapy - 09/30/2024;Did adjust patient Lasix dose in view of worsening kidney function. Discontinue IV Lasix 40 mg twice daily, started patient on p.o. Lasix 40 mg daily. Patient 2D echo demonstrated Moderately dilated left ventricular cavity. Severe generalized LV hypokinesis. Estimated LVEF 30%. Stage II diastolic dysfunction. Moderate to severe RV systolic dysfunction. Mild (1+) mitral valve insufficiency. Mild to moderate (1-2+) tricuspid valve insufficiency. Right ventricular systolic pressure estimated to be 40 mmHg. Small left pleural effusion. Consult placed to cardiology given patient markedly diminished EF 2. Cardiomyopathy ? Status post AICD placement 3. Chest pain Patient troponin on admission was slightly elevated at 47. Echo ordered to assess for regional wall motion abnormalities ? 09/30/2024; echo results as above 4. Elevated D-dimer ? CTA could not be performed given patient's impaired kidney function. VQ scan subsequently ordered for further eval ? 09/30/2024; VQ scan demonstrated low probability for PE, lower extremity venous duplex negative for DVT 5. Anemia ? Secondary to chronic disorder monitoring H&H and transfuse if patient becomes symptomatic or hemoglobin falls below 7 6. Diabetes mellitus type II -patient's oral hypoglycemics held. Placed on long acting insulin, Accu-Cheks a.c. and at bedtime and covered with sliding scale insulin 7. Obstructive sleep apnea ? Per history patient is not on PAP therapy 8. Hypertension ? Blood pressure controlled, home medications continued with dose adjustment as needed 9. Dyslipidemia ?Patient is on statin therapy, continued at home dose 1. Chronic kidney disease stage IV ? Patient kidney function at baseline ? 09/30/2024; patient kidney function worsening. Adjusted dose of patient furosemide consult placed to patient's school administrator Dr. Diamond 11. Depression with anxiety ? Did continue patient antidepressant 12. Class III obesity with BMI of 49.4 ? Complicating care weight loss advised 13. Chronic hypoxic respiratory failure ? Secondary to COPD patient is on 2 L of oxygen at night 14. Physical deconditioning ? Requested for PT OT eval and case management social worker to assist with discharge planning 15. DVT prophylaxis ? Subcu Charges/Coding Visit Charges Inpatient E&M: 23858 Subs Hosp L2
--- NOTE | 2024-09-30 09:16 | CON.PCM.CA_ITS ---
Assessment & Plan Assessment/Plan (1) Acute on chronic HFrEF (heart failure with reduced ejection fraction): PLAN: Patient's echocardiogram done on this admission showed left-ventricular ejection fraction of 30% with global depression. Stage II diastolic dysfunction. She and moderately severe RV dysfunction with severe biatrial enlargement. There is 1+ mitral regurgitation 1-2+ TR and pulmonary artery pressure was estimated at 40 mmHg. The patient is on guideline directed medical therapy with Jardiance, hydralazine, and metoprolol. She is not an ideal candidate for spironolactone given her stage IV kidney disease. I will add low-dose nitrates to her medical regiment for afterload reduction therapy in combination with the hydralazine. Would also recommend increasing her home Lasix dose to 40 mg daily. She has been aggressively diuresed with IV diuretics while hospitalized and her breathing has improved. She continues to have significant lower extremity edema. The patient should follow-up with her primary associate school psychologist in [place] for further long-term management. She has a DNR and I did rediscuss this with her in detail concerning palliative care. (2) CKD (chronic kidney disease), stage IV: PLAN: Patient's creatinine has been stable at 2.8 given her a GFR of 17. She has diuresed with IV diuretics. (3) HTN (hypertension): QUALIFIERS: Hypertension type: primary hypertension Qualified Code(s): I10 - Essential (primary) hypertension PLAN: Blood pressure has been adequately controlled in the hospital and with current medical therapy. She is encouraged to follow-up with her primary associate school psychologist and supplier manager for long-term management. (4) DM2 (diabetes mellitus, type 2): QUALIFIERS: Diabetes mellitus mcfp insulin use: with mcfp use Diabetes mellitus complication status: with unspecified complications Qualified Code(s): E11.8 - Type 2 diabetes mellitus with unspecified complications; Z79.4 - halfway (current) use of insulin PLAN: Management per the primary service. (5) ICD (implantable cardioverter-defibrillator) in place: PLAN: Patient's defibrillator is managed through the [place] [facility]. The patient qualified for [employer]?D but the third lead was not able to be placed the patient tells me is because that she had been under anesthesia too long and they were concerned about continuing to attempt to place the third lead. This was done 2 years ago. The patient is encouraged to follow-up with her primary associate school psychologist for long- term management. PLAN: Plan 1. Would recommend adding nitrates to the hydralazine for afterload reduction therapy. Imdur 30 mg daily was ordered. 2. Continue with Lasix 40 mg daily. Patient should manage her weight closely in her home environment she was up 10 pounds on admission. She should take an extra dose of Lasix until she is able to see her primary associate school psychologist. 3. If further assistance is needed please reconsult the [facility]. The patient will follow-up with her [place] associate school psychologist she has an appointment and either the end of September or October. HPI Consult Data Date of Consult: 09/30/24 HPI Narrative Reason for Consultation: Shortness of breath with reduced ejection fraction HPI Narrative: VAL ERICKSON, is a 79 F who presents with a history of progressive shortness of breath and 10 pound weight gain recently. The patient carries a history of LV dysfunction presumably nonischemic in etiology she has never had a heart attack but yet she has an ICD in place. The patient is cardiology care is obtained through the [place] [facility]. She was admitted here due to being brought to the emergency department. The patient's ECG is consistent with a left axis deviation and left bundle branch block. She has an ICD in place in the left pectoralis area. They were unable to place the third lead in her LV for J[employer]-D at the time of her implant 2 years ago. The patient is on Jardiance 10 mg daily, furosemide 20 mg daily, hydralazine 25 mg 3 times daily, metoprolol succinate 50 mg daily. The patient is not on nitrates with the hydralazine in her home environment by the med list we have from home. Her furosemide has been increased to 40 mg IV twice daily and recently switched to 40 mg p.o. daily today. She is on insulin for diabetes. The patient reports that she is breathing better now she is on O2 nasal cannula she has oxygen at home that she wears at night. Patient also reports that her lower extremity edema is persistent she has has noticed this over the last 2 months. She also was recently hospitalized with a significant fracture of her right lower extremity requiring a khurram and surgical intervention. This was in May 2024. The patient has a history of significant renal insufficiency. The patient is a DNR by her reports she does not want to be intubated. [facility] Medical History (Updated 09/30/24 @ 09:[address] Gregory June MD) Anxiety Osteoporosis GERD (gastroesophageal reflux disease) On home oxygen therapy Irregular heart beat ICD (implantable cardioverter-defibrillator) in place Congestive heart failure (CHF) Diabetic polyneuropathy COPD (chronic obstructive pulmonary disease) Chronic kidney disease, stage 4 (severe) Essential (primary) hypertension Debility Sleep apnea Diabetes Chronic pain Kidney stones Kidney disease DVT (deep venous thrombosis) Home Medications ?Medication ?Instructions ?Recorded ?Last Taken ?Type simvastatin 40 mg tablet 40 mg PO QHS cholesterol 03/3004/27/24 History docusate sodium 100 mg capsule 100 mg PO DAILY PRN sto ol softener 03/30/22 Unknown History furosemide 20 mg tablet 20 mg PO DAILY 03/30/2204/18 History sennosides 8.6 mg capsule (senna) 8.6 mg PO DAILY PRN constipation 03/30/22 Unknown History fluticasone fur. 100 mcg-umeclid 1 inh inhalation AC Y SOB 05/23/22 04/27/24 History 62.5 mcg-vilant 25 mcg inhalat.powder (Trelegy Ellipta) hydralazine 25 mg tablet 25 mg PO TID Blood pressure 01/30/23 04/27/24 History gabapentin 300 mg capsule 300 mg PO Q12H pain 04/28/24 04/27/24 History lidocaine 5 % topical patch 2 patch topical DAILY PRN pain, 04/28/24 Unknown History moderate metoprolol succinate 50 mg 50 mg PO DAILY Blood pressu re 04/28/24 04/27/24 History tablet,extended release 24 hr tirzepatide 2.5 mg/0.5 mL See Rx Instructions subcut 0 04/28/24 04/26/24 History subcutaneous pen injector .COMPLEX Diabetes (Mounjaro) venlafaxine 75 mg capsule,extended 75 mg PO DAILY Depr ession 04/28/24 04/27/24 History release 24 hr acetaminophen 325 mg tablet 325 mg PO ONCE PRN fever o r pain 05/12/24 Unknown History (Tylenol) buspirone 10 mg tablet 10 mg PO BID 09/27/24 Unknow n History empagliflozin 10 mg tablet 10 mg PO DAILY 09/27/24 Unk nown History (Jardiance) insulin glargine 100 unit/mL (3 35 unit subcut DAILY D iabetes 09/27/24 Unknown History mL) subcutaneous pen (Lantus Solostar U-100 Insulin) melatonin 10 mg sublingual tablet 10 mg PO QHS PRN Ins omnia 09/27/24 Unknown History Allergy/AdvReac Type Severity Reaction Status Date / Time levofloxacin (From Levaquin) Allergy Hives Verified 09/27/24 02:08 Sulfa (Sulfonamide Allergy Hives Verified 09/27/24 02:08 Antibiotics) Opioids - Morphine Analogues AdvReac Intermediate Other Verified 09/27/24 02:08 (narcotics) Family History Sister Breast cancer Other Heart disease Prostate cancer Surgical History History of hip surgery S/P hysterectomy History of appendectomy History of cholecystectomy Social History household members: none number of children: 2 Smoking Status: Former smoker alcohol intake: never substance use type: does not use additional social history: Lives alone in a house in [facility] Constitutional Constitutional: Reports as per HPI Eyes Eyes: Reports systems reviewed and no addt'l complaints, except as documented ENT HEENT: Reports systems reviewed and no addt'l complaints, except as documented Cardiovascular Cardiovascular: Reports as per HPI Respiratory/Chest Respiratory/Chest: Reports as per HPI Gastrointestinal Gastrointestinal: Reports systems reviewed and no addt'l complaints, except as documented Genitourinary Genitourinary: Reports as per HPI Musculoskeletal Musculoskeletal: Reports as per HPI Integumentary Integumentary: Reports systems reviewed and no addt'l complaints, except as documented Neurologic Neurologic: Reports systems reviewed and no addt'l complaints, except as documented Psychiatric Psychiatric: Reports systems reviewed and no addt'l complaints, except as documented Endocrine Endocrinology: Reports as per HPI Hematologic/Lymphatic Hematologic/Lymphatic: Reports systems reviewed and no addt'l complaints, except as documented Allergic/Immunologic Allergic/Immunologic: Reports systems reviewed and no addt'l complaints, except as documented Physical Exam Narrative Patient is morbidly obese white female resting comfortably in recumbent position in bed. She does report that she was out of bed 5 times with her walker yesterday. Const alert and oriented x3 HEENT normocephalic Eyes EOMs intact bilaterally Neck no JVD and no carotid bruits Neck Narrative: Thick neck no noticeable JVD Chest Chest Narrative: ICD implant in the left pectoral area. Chest: left pectoral incision Resp normal respiratory effort Auscultation: diminished lung sounds diffuse Cardio Cardio Narrative: Distant heart tones due to morbid obesity and body habitus. Rate: regular rate Rhythm: regular rhythm Heart Sounds: S1 normal and S2 normal; Negative for click, gallop or murmur GI soft to palpation GI Narrative: Obese Extremity General Extremity: edema bilateral lower extremity Details: moderate Skin Skin Narrative: Noted small areas of erythema along the medial aspect of both lower extremities. Neuro Neuro Narrative: Alert and oriented x 3 Psych mental status grossly normal Risk Stratification Risk Stratification Applicable: No Charges/Coding Visit Charges Inpatient E&M: 28210 Init Hosp L3 Objective Data Vital Signs: Vital Signs Temp Pulse Resp BP Pulse Ox O2 Del Method O2 Flow Rate 97.0 F L 88 16 120/78 100 Nasal Cannula 2 09/30/24 06:21 09/30/24 06:50 09/30/24 06:50 09/30/24 06:22 09/30/24 06:50 09/30/24 08:22 09/30/24 08:22 Oxygen Flow Rate (L/min) 2 Oxygen Delivery Method Nasal Cannula Weight: 278 lb 10.629 oz Body Mass Index (BMI) 49.4 Intake & Output: Intake and Output for Last 24 Hours 09/28/24 09/29/24 09/30/24 23:59 23:59 23:59 Intake Total 1770 / 1770 200 / 200 Output Total 2600 / 2600 500 / 500 Balance -830 / -830 -300 / -300 Lab / Micro Data Attestation: I reviewed the patient's lab results. 09/30/24 06:17 09/30/24 06:17 Labs: Laboratory Results - last 24 hr 09/29/24 09:45: POC Glucose 103 09/29/24 11:22: POC Glucose 140 H 09/29/24 16:54: POC Glucose 224 H 09/29/24 22:13: POC Glucose 207 H 09/30/24 06:17: WBC 8.3, RBC 3.35 L, Hgb 10.2 L, Hct 32.0 L, MCV 95.5, MCH 30.4, MCHC 31.9 L, RDW Std Deviation 56.5 H, RDW Coeff of Yoel 16.2 H, Plt Count 203, MPV 9.9, Immature Gran % (Auto) 0.600, Neut % (Auto) 76.4 H, Lymph % (Auto) 10.1 L, [place]kin % (Auto) 8.4, Eos % (Auto) 4.1, Baso % (Auto) 0.4, Absolute Neuts (auto) 6.3, Absolute Lymphs (auto) 0.84, Nucleated RBC % 0, Sodium 133, Potassium 4.3, Chloride 91 L, Carbon Dioxide 28.4, Anion Gap 14, BUN 53 H, Creatinine 2.80 H, E stim Creat Clear Calc 20.74 L, Est GFR (MDRD) Non-Af 17 L, BUN/Creatinine Ratio 19.0, Glucose 153 H, Calcium 9.6 09/30/24 06:21: POC Glucose 163 H Rhythm Strip Rhythm Strip: Sinus Rhythm Rate: 88 Cardiology Labs/Tests 09/30/24 06:17: WBC 8.3, RBC 3.35 L, Hgb 10.2 L, Hct 32.0 L, MCV 95.5, MCH 30.4, MCHC 31.9 L, Plt Count 203, MPV 9.9, Immature Gran % (Auto) 0.600, Neut % (Auto) 76.4 H, Lymph % (Auto) 10.1 L, [place]kin % (Auto) 8.4, Eos % (Auto) 4.1, Baso % (Auto) 0.4, Absolute Neuts (auto) 6.3, Nucleated RBC % 0, Sodium 133, Potassium 4.3, Chloride 91 L, Carbon Dioxide 28.4, Anion Gap 14, BUN 53 H, Creatinine 2.80 H, Est GFR (MDRD) Non-Af 17 L, BUN/Creatinine Ratio 19.0, Glucose 153 H, Calcium 9.6 Rhythm: EKG: ECHO: Stress Test: Cardiac Cath: PCI: CT Surgery: Holter monitor: EPS: PPM: CXR: Chest CT Scan:
[2024-09-30] MEDS: Metoprolol(XL)Succ 50 MG Tablet PO (11:55)
--- NOTE | 2024-09-30 12:04 | CASEMGMT ---
RN CM in to update patient regarding acceptance to [facility]. Patient voiced appreciation. Patient had no further questions or concerns. CM will continue to follow this patient patient and plan for a safe discharge.
[2024-09-30] MEDS: Insulin Glargine-YFGN 100 UNIT/ML Pen 35 UNIT SC (12:11)
[2024-10-01] VITALS (7 sets, daily range): BP systolic 93–125; BP diastolic 64–81; PULSE 86–100; RESP 18; TEMP 36.1–36.3; O2SAT 98; BMI 49.8
[2024-10-01 06:04] LABS: Hematocrit 30.4 % (37-47); Hemoglobin 10.0 g/dL (12.0-15.0); Immature Granulocytes Count 0.030 X10^3/uL (0.0-0.0); Mean Corp Hgb Conc 32.9 g/dL (32-36); Mean Corpuscular Volume 93.0 fL (81-99); Mean Platelet Vol. 9.9 fl (6.2-12.0); NRBC Flagged by Analyzer 0 % (0-5); Platelet Count 199 K/mm3 (150-450); RBC Distribution Width CV 15.9 % (11.6-14.6); RBC Distribution Width SD 54.7 fl (35.1-43.9); Red Blood Count 3.27 M/mm3 (4.2-5.4); White Blood Count 6.7 K/mm3 (4.4-11.0)
[2024-10-01] MEDS: Heparin Injection (Vial) 5,000 UNIT/ML VIAL 5000 UNIT SC (06:24)
[2024-10-01 06:28] LABS: Anion Gap 14 (5-15); BUN 54 mg/dL (4-19); BUN/Creat Ratio 20.6 RATIO (10-20); Calcium,Total 9.4 mg/dL (7.6-11.0); Carbon Dioxide 26.0 mmol/L (21.0-32.0); Chloride 92 mmol/L (98-108); Estimated Creatinine Clearance 22.14 ml/min (50-250); Glucose 85 mg/dL (70-99); Potassium 4.0 mmol/L (3.3-5.1)
[2024-10-01] MEDS: Budesonide Respules 0.5 MG/2 ML AMPUL.NEB. INHALATION (06:53)
--- NOTE | 2024-10-01 07:59 | PCM.PN.HOSP ---
Reason for Visit Chief Complaint: Chest pain Subjective Subjective Patient seen breathing has significantly improved. Plan is for patient to be assessed for possible disc Objective Data Objective Data Vital Signs: Vital Signs Temp Pulse Resp BP Pulse Ox O2 Del Method O2 Flow Rate 97.3 F L 86 18 115/67 98 Nasal Cannula 2 10/01/24 04:00 10/01/24 06:54 10/01/24 06:54 10/01/24 06:24 10/01/24 04:00 10/01/24 06:54 10/01/24 06:54 Oxygen Flow Rate (L/min) 2 Oxygen Delivery Method Nasal Cannula Weight: 127.7 kg Body Mass Index (BMI) 49.8 Intake & Output: Intake and Output for Last 24 Hours 09/29/24 09/30/24 10/01/24 23:59 23:59 23:59 Intake Total 200 / 200 980 / 980 240 / 240 Output Total 500 / 500 450 / 450 Balance -300 / -300 530 / 530 240 / 240 Lab / Micro Data 10/01/24 05:30 10/01/24 05:30 Labs: Laboratory Results - last 24 hr 09/30/24 12:10: POC Glucose 237 H 09/30/24 17:05: POC Glucose 176 H 09/30/24 22:00: POC Glucose 167 H 10/01/24 05:30: WBC 6.7, RBC 3.27 L, Hgb 10.0 L, Hct 30.4 L, MCV 93.0, MCH 30.6, MCHC 32.9, RDW Std Deviation 54.7 H, RDW Coeff of Yoel 15.9 H, Plt Count 199, MPV 9.9, Immature Gran % (Auto) 0.400, Neut % (Auto) 71.5 H, Lymph % (Auto) 12.5 L, [place] % (Auto) 9.4, Eos % (Auto) 5.8 H, Baso % (Auto) 0.4, Absolute Neuts (auto) 4.8, Absolute Lymphs (auto) 0.84, Nucleated RBC % 0, Sodium 133, Potassium 4.0, Chloride 92 L, Carbon Dioxide 26.0, Anion Gap 14, BUN 54 H, Creatinine 2.64 H, Estim Creat Clear Calc 22.14 L, Est GFR (MDRD) Non-Af 18 L, BUN/Creatinine Ratio 20.6 H, Glucose 85, Calcium 9.4 10/01/24 06:18: POC Glucose 84 Rhythm Strip Rhythm Strip: Sinus Rhythm Rate: 88 Physical Exam Narrative GENERAL: cooperative HEENT: Atraumatic; normocephalic EYES; Anicteric, Normal Conjunctiva NECK; supple, normal thyroid, RESPIRATORY: Diminished to auscultation CARDIOVASCULAR: Regular S1 S2, GI: soft, normoactive bowel sounds, : No Renal angle tenderness; EXTREMITIES: Bipedal edema edema, no clubbing, MUSCULOSKELETAL: no muscle wasting NEURO: Awake; no lateralizing signs; tremors SKIN: No Rash PSYCH; Flat affect Assessment & Plan Assessment/Plan (1) Chest pain: PLAN: Plan Patient is an 79-year-old lady with recent hospitalization for pneumonia who presented emergency department after patient complained of chest discomfort. Patient was found to have pulmonary vascular congestion on admission admitted to a monitored bed for further management 1. Acute congestive heart failure?with decreased ejection fraction -Admitted to monitored bed treatment initiated with strict input and output, daily weights, fluid restriction, low-sodium diet as well as diuretic therapy echo ordered for EF assessment ? 09/29/2024; patient is net negative fluid balance of 1 L over the past 24. Will continue with current dose of diuretic therapy - 09/30/2024;Did adjust patient Lasix dose in view of worsening kidney function. Discontinue IV Lasix 40 mg twice daily, started patient on p.o. Lasix 40 mg daily. Patient 2D echo demonstrated Moderately dilated left ventricular cavity. Severe generalized LV hypokinesis. Estimated LVEF 30%. Stage II diastolic dysfunction. Moderate to severe RV systolic dysfunction. Mild (1+) mitral valve insufficiency. Mild to moderate (1-2+) tricuspid valve insufficiency. Right ventricular systolic pressure estimated to be 40 mmHg. Small left pleural effusion. Consult placed to cardiology given patient markedly diminished EF ? 10/01/2024; patient was seen in consultation by cardiology Dr. June was case discussed with him 2. Cardiomyopathy ? Status post AICD placement 3. Chest pain Patient troponin on admission was slightly elevated at 47. Echo ordered to assess for regional wall motion abnormalities ? 09/30/2024; echo results as above 4. Elevated D-dimer ? CTA could not be performed given patient's impaired kidney function. VQ scan subsequently ordered for further eval ? 09/30/2024; VQ scan demonstrated low probability for PE, lower extremity venous duplex negative for DVT 5. Anemia ? Secondary to chronic disorder monitoring H&H and transfuse if patient becomes symptomatic or hemoglobin falls below 7 6. Diabetes mellitus type II -patient's oral hypoglycemics held. Placed on long acting insulin, Accu-Cheks a.c. and at bedtime and covered with sliding scale insulin 7. Obstructive sleep apnea ? Per history patient is not on PAP therapy 8. Hypertension ? Blood pressure controlled, home medications continued with dose adjustment as needed 9. Dyslipidemia ?Patient is on statin therapy, continued at home dose 1. Chronic kidney disease stage IV ? Patient kidney function at baseline ? 09/30/2024; patient kidney function worsening. Adjusted dose of patient furosemide consult placed to patient's manager presentation Dr. Diamond 11. Depression with anxiety ? Did continue patient antidepressant 12. Class III obesity with BMI of 49.4 ? Complicating care weight loss advised 13. Chronic hypoxic respiratory failure ? Secondary to COPD patient is on 2 L of oxygen at night 14. Physical deconditioning ? Requested for PT OT eval and psychosocial rehabilitation counselor to assist with discharge planning 15. DVT prophylaxis ? Subcu Charges/Coding Visit Charges Inpatient E&M: 78537 Subs Hosp L2
--- NOTE | 2024-10-01 09:09 | TREXTCAR_ITS ---
Diet Diet Order/Speech Therapy: INPATIENT Hospital Diet / Speech Therapy Order(s) 09/29/24 15:35 Diet: Cardiac - Heart Healthy Food consistency:: Regular Liquid Consistency:: Regular/Thin Dietary Modifications:: Consistent Carbohydrate Fluid restriction:: 1500 mL Routine Orders/Code Status Code Status: DNRCC-A DC O2, CPAP, BIPAP needs Home O2 Discharge instructions: Yes Type of respiratory needs?: Oxygen Oxygen frequency: Continuous Continuous oxygen liters per minute: 4 Problem/Diagnosis (1) Chest pain: Status: Acute Code(s): R07.9 - Chest pain, unspecified Plan Patient is an 79-year-old lady with recent hospitalization for pneumonia who presented emergency department after patient complained of chest discomfort. Patient was found to have pulmonary vascular congestion on admission admitted to a monitored bed for further management 1. Acute congestive heart failure?with decreased ejection fraction -Admitted to monitored bed treatment initiated with strict input and output, daily weights, fluid restriction, low-sodium diet as well as diuretic therapy echo ordered for EF assessment ? 09/29/2024; patient is net negative fluid balance of 1 L over the past 24. Will continue with current dose of diuretic therapy - 09/30/2024;Did adjust patient Lasix dose in view of worsening kidney function. Discontinue IV Lasix 40 mg twice daily, started patient on p.o. Lasix 40 mg daily. Patient 2D echo demonstrated Moderately dilated left ventricular cavity. Severe generalized LV hypokinesis. Estimated LVEF 30%. Stage II diastolic dysfunction. Moderate to severe RV systolic dysfunction. Mild (1+) mitral valve insufficiency. Mild to moderate (1- 2+) tricuspid valve insufficiency. Right ventricular systolic pressure estimated to be 40 mmHg. Small left pleural effusion. Consult placed to cardiology given patient markedly diminished EF ? 10/01/2024; patient was seen in consultation by cardiology Dr. June was case discussed with him 2. Cardiomyopathy ? Status post AICD placement 3. Chest pain Patient troponin on admission was slightly elevated at 47. Echo ordered to assess for regional wall motion abnormalities ? 09/30/2024; echo results as above 4. Elevated D-dimer ? CTA could not be performed given patient's impaired kidney function. VQ scan subsequently ordered for further eval ? 09/30/2024; VQ scan demonstrated low probability for PE, lower extremity venous duplex negative for DVT 5. Anemia ? Secondary to chronic disorder monitoring H&H and transfuse if patient becomes symptomatic or hemoglobin falls below 7 6. Diabetes mellitus type II -patient's oral hypoglycemics held. Placed on long acting insulin, Accu-Cheks a.c. and at bedtime and covered with sliding scale insulin 7. Obstructive sleep apnea ? Per history patient is not on PAP therapy 8. Hypertension ? Blood pressure controlled, home medications continued with dose adjustment as needed 9. Dyslipidemia ?Patient is on statin therapy, continued at home dose 1. Chronic kidney disease stage IV ? Patient kidney function at baseline ? 09/30/2024; patient kidney function worsening. Adjusted dose of patient furosemide consult placed to patient's survey technician Dr. Diamond 11. Depression with anxiety ? Did continue patient antidepressant 12. Class III obesity with BMI of 49.4 ? Complicating care weight loss advised 13. Chronic hypoxic respiratory failure ? Secondary to COPD patient is on 2 L of oxygen at night 14. Physical deconditioning ? Requested for PT OT eval and web content & social media manager to assist with discharge planning 15. DVT prophylaxis ? Subcu Allergies/Procedures Done in Hospital Allergies levofloxacin (From Levaquin) Allergy (Verified 09/27/24 02:08) Hives Sulfa (Sulfonamide Antibiotics) Allergy (Verified 09/27/24 02:08) Hives Opioids - Morphine Analogues (narcotics) Adverse Reaction (Intermediate, Verified 09/27/24 02:08) Other Confusion, Behaviors Type of Care/Length of Stay Estimated LOS: Convalescent Care Less Than 30 days Type of Care Needed: Skilled Rehab Potential: Good Prognosis: Good Additional Orders/Day of Discharge Day of Discharge: 10/01/24 Dietary and Speech Recommendations Dietitian Recommendations/Changes: Adjust to cardiac; consistent carbohydrate diet and continue 1500ml fluid restriction. Will monitor weight trends. Discharge Plan Admission Admit Date/Time: 09/28/24 18:47 Attending Provider: Satn Rockwell Primary Care Provider: Neel Ng Consulting Providers: Mone Denton; Gregory June; Peewee Louise Discharge Orders/Prescriptions Prescriptions: New furosemide 40 mg Tablet 40 mg PO DAILY Qty: 90 0RF albuterol sulfate 2.5 mg /3 mL (0.083 %) Solution For Nebulization 2.5 mg inhalation Q2H PRN PRN (Reason: Dyspnea, wheezing) Qty: 0 0RF insulin lispro [Humalog KwikPen Insulin] 100 unit/mL Insulin Pen See Protocol subcut ACHS Qty: 0 0RF Protocol: 4. Sliding Scale Insulin High-Med Dosing Condition: 150-199 mg/dl = 2 units Condition: 200-259 mg/dl = 4 units Condition: 260-324 mg/dl = 6 units Condition: 325-374 mg/dl = 8 units Condition: 375-409 mg/dl = 10 units Condition: 410-449 mg/dl = 11 units Condition: Greater than 449 call physician Protocol Text: Suggested for: - Patients on Total Daily Insulin Dose of 56-80 units - Patient who are known to be insulin resistant or septic HIGH MEDIUM DOSING ALGORITHM nitroglycerin 0.4 mg Tablet, Sublingual 0.4 mg sublingual Q5M PRN (Reason: Cardiac/Chest Pain) Qty: 0 0RF isosorbide mononitrate 30 mg tablet extended release 24 hr 30 mg PO DAILY Qty: 90 0RF Continued acetaminophen [Tylenol] 325 mg tablet 325 mg PO ONCE PRN (Reason: fever or pain) simvastatin 40 MG tablet 40 mg PO QHS Patient Comments: CHOLESTEROL docusate sodium 100 mg Capsule 100 mg PO DAILY PRN (Reason: stool softener) senna 8.6 mg Capsule 8.6 mg PO DAILY PRN (Reason: constipation) Trelegy Ellipta 100-62.5-25 mcg Blister With Device 1 inh INHALATION DAILY hydralazine 25 mg tablet 25 mg PO TID Mounjaro 2.5 mg/0.5 mL pen injector See Rx Instructions SUBCUT .COMPLEX Rx Instructions: 7.5mg subcutaneously; Takes every Saturday morning venlafaxine 75 mg capsule,extended release 24hr 75 mg PO DAILY metoprolol succinate 50 mg tablet extended release 24 hr 50 mg PO DAILY lidocaine 5 % Adhesive Patch,Medicated 2 patch topical DAILY PRN (Reason: pain, moderate) Protocol: *Topical Application Instructions APPLICATION INSTRUCTIONS: Apply to R groin/top of thigh gabapentin 300 mg Capsule 300 mg PO Q12H insulin glargine [Lantus Solostar U-100 Insulin] 100 UNITS/ML insulin pen 35 unit subcut DAILY melatonin 10 MG tablet 10 mg PO QHS PRN (Reason: Insomnia) buspirone 10 mg tablet 10 mg PO BID Jardiance 10 mg tablet 10 mg PO DAILY Discontinued furosemide 20 mg Tablet 20 mg PO DAILY Referrals / Follow Up: Neel Ng MD [Primary Care Provider] - Disposition Disposition (needs filled in before D/C Order can be placed): [facility]
--- NOTE | 2024-10-01 09:21 | DS.PCM_ITS ---
Providers Date of Admission: 09/28/24 Date of Discharge: 10/01/24 Primary Care Physician: Dr. Neel Ng MD Consultations 09/30/24 08:36 Consult: Cardiology Routine Consulting Provider: Gregory June Reason for Consult: chf EMERGENT Consult: No Notified: Yes Date Notified: 09/30/24 Time Notified: 08:38 Method of Notification: Text 09/30/24 09:55 Consult: Nephrology Routine Consulting Provider: Peewee Louise Reason for Consult: ckd EMERGENT Consult: No Notified: Yes Date Notified: 09/30/24 Time Notified: 11:01 Method of Notification: Answering Service Reason For Visit: CHEST PAIN W/ CONCERN FOR PE, CKD4,MILD HFPEF EXAC Diagnosis Discharge Diagnosis (1) Chest pain: Status: Acute Code(s): R07.9 - Chest pain, unspecified Plan Patient is an 79-year-old lady with recent hospitalization for pneumonia who presented emergency department after patient complained of chest discomfort. Patient was found to have pulmonary vascular congestion on admission admitted to a monitored bed for further management 1. Acute congestive heart failure?with decreased ejection fraction -Admitted to monitored bed treatment initiated with strict input and output, daily weights, fluid restriction, low-sodium diet as well as diuretic therapy echo ordered for EF assessment ? 09/29/2024; patient is net negative fluid balance of 1 L over the past 24. Will continue with current dose of diuretic therapy - 09/30/2024;Did adjust patient Lasix dose in view of worsening kidney function. Discontinue IV Lasix 40 mg twice daily, started patient on p.o. Lasix 40 mg daily. Patient 2D echo demonstrated Moderately dilated left ventricular cavity. Severe generalized LV hypokinesis. Estimated LVEF 30%. Stage II diastolic dysfunction. Moderate to severe RV systolic dysfunction. Mild (1+) mitral valve insufficiency. Mild to moderate (1- 2+) tricuspid valve insufficiency. Right ventricular systolic pressure estimated to be 40 mmHg. Small left pleural effusion. Consult placed to cardiology given patient markedly diminished EF ? 10/01/2024; patient was seen in consultation by cardiology Dr. June was case discussed with him 2. Cardiomyopathy ? Status post AICD placement 3. Chest pain Patient troponin on admission was slightly elevated at 47. Echo ordered to assess for regional wall motion abnormalities ? 09/30/2024; echo results as above 4. Elevated D-dimer ? CTA could not be performed given patient's impaired kidney function. VQ scan subsequently ordered for further eval ? 09/30/2024; VQ scan demonstrated low probability for PE, lower extremity venous duplex negative for DVT 5. Anemia ? Secondary to chronic disorder monitoring H&H and transfuse if patient becomes symptomatic or hemoglobin falls below 7 6. Diabetes mellitus type II -patient's oral hypoglycemics held. Placed on long acting insulin, Accu-Cheks a.c. and at bedtime and covered with sliding scale insulin 7. Obstructive sleep apnea ? Per history patient is not on PAP therapy 8. Hypertension ? Blood pressure controlled, home medications continued with dose adjustment as needed 9. Dyslipidemia ?Patient is on statin therapy, continued at home dose 1. Chronic kidney disease stage IV ? Patient kidney function at baseline ? 09/30/2024; patient kidney function worsening. Adjusted dose of patient furosemide consult placed to patient's fitness sales consultant Dr. Diamond 11. Depression with anxiety ? Did continue patient antidepressant 12. Class III obesity with BMI of 49.4 ? Complicating care weight loss advised 13. Chronic hypoxic respiratory failure ? Secondary to COPD patient is on 2 L of oxygen at night 14. Physical deconditioning ? Requested for PT OT eval and medical social worker to assist with discharge planning 15. DVT prophylaxis ? Subcu Medications at Discharge Home Medications simvastatin 40 mg tablet 40 mg PO QHS cholesterol 12/16/12 docusate sodium 100 mg capsule 100 mg PO DAILY PRN stool softener 03/30/22 sennosides 8.6 mg capsule (senna) 8.6 mg PO DAILY PRN constipation 03/30/22 fluticasone fur. 100 mcg-umeclid 62.5 mcg-vilant 25 mcg inhalat.powder (Trelegy Ellipta) 1 inh inhalation DAILY SOB 05/23/22 hydralazine 25 mg tablet 25 mg PO TID Blood pressure 01/30/23 gabapentin 300 mg capsule 300 mg PO Q12H pain 04/28/24 lidocaine 5 % topical patch 2 patch topical DAILY PRN pain, moderate 04/28/24 metoprolol succinate 50 mg tablet,extended release 24 hr 50 mg PO DAILY Blood pressure 04/28/24 tirzepatide 2.5 mg/0.5 mL subcutaneous pen injector (Colten) See Rx Instructions subcut .COMPLEX Diabetes 04/28/24 venlafaxine 75 mg capsule,extended release 24 hr 75 mg PO DAILY Depression 04/28/24 acetaminophen 325 mg tablet (Tylenol) 325 mg PO ONCE PRN fever or pain 05/12/24 buspirone 10 mg tablet 10 mg PO BID 09/27/24 empagliflozin 10 mg tablet (Jardiance) 10 mg PO DAILY 09/27/24 insulin glargine 100 unit/mL (3 mL) subcutaneous pen (Lantus Solostar U-100 Insulin) 35 unit subcut DAILY Diabetes 09/27/24 melatonin 10 mg sublingual tablet 10 mg PO QHS PRN Insomnia 09/27/24 albuterol sulfate 2.5 mg/3 mL (0.083 %) solution for nebulization 2.5 mg (3 mL) inhalation Q2H PRN PRN Dyspnea, wheezing #0 mL 10/01/24 furosemide 40 mg tablet 40 mg PO DAILY #90 tabs 10/01/24 insulin lispro 100 unit/mL subcutaneous pen (Humalog KwikPen (U-100) Insulin) See Protocol subcut ACHS #0 mL 10/01/24 isosorbide mononitrate 30 mg tablet,extended release 24 hr 30 mg PO DAILY #90 tabs 10/01/24 nitroglycerin 0.4 mg sublingual tablet 0.4 mg sublingual Q5M PRN Cardiac/Chest Pain #0 tabs 10/01/24 Hospital Course Summary of Care Provided Minutes Spent on Discharge: 35 Physical Exam Narrative GENERAL: cooperative HEENT: Atraumatic; normocephalic EYES; Anicteric, Normal Conjunctiva NECK; supple, normal thyroid, RESPIRATORY: Diminished to auscultation CARDIOVASCULAR: Regular S1 S2, GI: soft, normoactive bowel sounds, : No Renal angle tenderness; EXTREMITIES: Bipedal edema edema, no clubbing, MUSCULOSKELETAL: no muscle wasting NEURO: Awake; no lateralizing signs; tremors SKIN: No Rash PSYCH; Flat affect Weight / BMI Weight Weight: 127.7 kg Body Mass Index (BMI) 49.8 ABG / Lab / Microbiology Data 10/01/24 05:30 10/01/24 05:30 Laboratory: Laboratory Results - last 24 hr 09/30/24 12:10: POC Glucose 237 H 09/30/24 17:05: POC Glucose 176 H 09/30/24 22:00: POC Glucose 167 H 10/01/24 05:30: WBC 6.7, RBC 3.27 L, Hgb 10.0 L, Hct 30.4 L, MCV 93.0, MCH 30.6, MCHC 32.9, RDW Std Deviation 54.7 H, RDW Coeff of Yoel 15.9 H, Plt Count 199, MPV 9.9, Immature Gran % (Auto) 0.400, Neut % (Auto) 71.5 H, Lymph % (Auto) 12.5 L, [place] % (Auto) 9.4, Eos % (Auto) 5.8 H, Baso % (Auto) 0.4, Absolute Neuts (auto) 4.8, Absolute Lymphs (auto) 0.84, Nucleated RBC % 0, Sodium 133, Potassium 4.0, Chloride 92 L, Carbon Dioxide 26.0, Anion Gap 14, BUN 54 H, Creatinine 2.64 H, E stim Creat Clear Calc 22.14 L, Est GFR (MDRD) Non-Af 18 L, BUN/Creatinine Ratio 20.6 H, Glucose 85, Calcium 9.4 10/01/24 06:18: POC Glucose 84 D/C Instructions Discharge Activity: Return to Normal Activity Call your doctor if you observe: Fever of 101 or Higher, Shortness of breath, Fainting spells and Chest pain DC O2, CPAP, BIPAP Needs Home O2 Discharge instructions: Yes Type of respiratory needs?: Oxygen Oxygen frequency: Continuous Continuous oxygen liters per minute: 4 DC home with Oxygen: Yes Home O2 MD Review: I have reviewed the oxygen testing, and the patient qualifies for home oxygen equipment and portability. The patient is mobile in the home and the community. Meaningful Use Info Meaningful Use Meaningful Use Diagnoses (Choose all that apply): CHF CHF GEOVANNI/ARB ordered at discharge?: No Reason GEOVANNI/ARB not ordered?: Worsening renal disease Documented LVEF (%): 35 Discharge Plan Admission Admit Date/Time: 09/28/24 18:47 Attending Provider: Stan Rockwell Primary Care Provider: Neel Ng Consulting Providers: Mone Denton; Gregory June; Peewee Louise Discharge Orders/Prescriptions Prescriptions: New furosemide 40 mg Tablet 40 mg PO DAILY Qty: 90 0RF albuterol sulfate 2.5 mg /3 mL (0.083 %) Solution For Nebulization 2.5 mg inhalation Q2H PRN PRN (Reason: Dyspnea, wheezing) Qty: 0 0RF insulin lispro [Humalog KwikPen Insulin] 100 unit/mL Insulin Pen See Protocol subcut ACHS Qty: 0 0RF Protocol: 4. Sliding Scale Insulin High-Med Dosing Condition: 150-199 mg/dl = 2 units Condition: 200-259 mg/dl = 4 units Condition: 260-324 mg/dl = 6 units Condition: 325-374 mg/dl = 8 units Condition: 375-409 mg/dl = 10 units Condition: 410-449 mg/dl = 11 units Condition: Greater than 449 call physician Protocol Text: Suggested for: - Patients on Total Daily Insulin Dose of 56-80 units - Patient who are known to be insulin resistant or septic HIGH MEDIUM DOSING ALGORITHM nitroglycerin 0.4 mg Tablet, Sublingual 0.4 mg sublingual Q5M PRN (Reason: Cardiac/Chest Pain) Qty: 0 0RF isosorbide mononitrate 30 mg tablet extended release 24 hr 30 mg PO DAILY Qty: 90 0RF Continued acetaminophen [Tylenol] 325 mg tablet 325 mg PO ONCE PRN (Reason: fever or pain) simvastatin 40 MG tablet 40 mg PO QHS Patient Comments: CHOLESTEROL docusate sodium 100 mg Capsule 100 mg PO DAILY PRN (Reason: stool softener) senna 8.6 mg Capsule 8.6 mg PO DAILY PRN (Reason: constipation) Trelegy Ellipta 100-62.5-25 mcg Blister With Device 1 inh INHALATION DAILY hydralazine 25 mg tablet 25 mg PO TID Mounjaro 2.5 mg/0.5 mL pen injector See Rx Instructions SUBCUT .COMPLEX Rx Instructions: 7.5mg subcutaneously; Takes every Saturday morning venlafaxine 75 mg capsule,extended release 24hr 75 mg PO DAILY metoprolol succinate 50 mg tablet extended release 24 hr 50 mg PO DAILY lidocaine 5 % Adhesive Patch,Medicated 2 patch topical DAILY PRN (Reason: pain, moderate) Protocol: *Topical Application Instructions APPLICATION INSTRUCTIONS: Apply to R groin/top of thigh gabapentin 300 mg Capsule 300 mg PO Q12H insulin glargine [Lantus Solostar U-100 Insulin] 100 UNITS/ML insulin pen 35 unit subcut DAILY melatonin 10 MG tablet 10 mg PO QHS PRN (Reason: Insomnia) buspirone 10 mg tablet 10 mg PO BID Jardiance 10 mg tablet 10 mg PO DAILY Discontinued furosemide 20 mg Tablet 20 mg PO DAILY Referrals / Follow Up: Neel Ng MD [Primary Care Provider] - Disposition Disposition (needs filled in before D/C Order can be placed): Longterm Facility Charges/Coding Visit Charges Inpatient E&M: 02830 Disch Hosp >30min
[2024-10-01] MEDS: Metoprolol(XL)Succ 50 MG Tablet PO (09:52)
--- NOTE | 2024-10-01 09:59 | CASEMGMT ---
Patient has order for discharge. 7000 completed. Patient discharging to [facility] for skilled LOC. DC Electric Distribution Checker to arrange discharge.
--- NOTE | 2024-10-01 10:19 | CASEMGMT ---
Addendum entered by Dhara Holguin 10/01/24 11:14: Covid results sent to [facility]. Dhara Holguin DC Planning Asst. Original Note: Discharge Planning Discharge orders, signed med list, and transport time sent to [facility]. Physicians will transport pt by wheelchair at 12p. Nursing, RN CM, pt, and her son (Hardik) udpated. Dhara Holguin DC Planning Asst.
--- NOTE | 2024-10-01 10:28 | PHA.DC_ITS ---
Pharmacy [facility] Reconciliation Pharmacy Service has performed discharge medication reconciliation for this patient. The patient's discharge medication list was reviewed for discrepancies and discrepancies were resolved. Medications at Discharge Home Medications simvastatin 40 mg tablet 40 mg PO QHS cholesterol 12/16/12 docusate sodium 100 mg capsule 100 mg PO DAILY PRN stool softener 03/30/22 sennosides 8.6 mg capsule (senna) 8.6 mg PO DAILY PRN constipation 03/30/22 fluticasone fur. 100 mcg-umeclid 62.5 mcg-vilant 25 mcg inhalat.powder (Trelegy Ellipta) 1 inh inhalation DAILY SOB 05/23/22 hydralazine 25 mg tablet 25 mg PO TID Blood pressure 01/30/23 gabapentin 300 mg capsule 300 mg PO Q12H pain 04/28/24 lidocaine 5 % topical patch 2 patch topical DAILY PRN pain, moderate 04/28/24 metoprolol succinate 50 mg tablet,extended release 24 hr 50 mg PO DAILY Blood pressure 04/28/24 tirzepatide 2.5 mg/0.5 mL subcutaneous pen injector (Colten) See Rx Instructions subcut .COMPLEX Diabetes 04/28/24 venlafaxine 75 mg capsule,extended release 24 hr 75 mg PO DAILY Depression 04/28/24 acetaminophen 325 mg tablet (Tylenol) 325 mg PO ONCE PRN fever or pain 05/12/24 buspirone 10 mg tablet 10 mg PO BID mental health 09/27/24 empagliflozin 10 mg tablet (Jardiance) 10 mg PO DAILY diabetes 09/27/24 insulin glargine 100 unit/mL (3 mL) subcutaneous pen (Lantus Solostar U-100 Insulin) 35 unit subcut DAILY Diabetes 09/27/24 melatonin 10 mg sublingual tablet 10 mg PO QHS PRN Insomnia 09/27/24 albuterol sulfate 2.5 mg/3 mL (0.083 %) solution for nebulization 2.5 mg (3 mL) inhalation Q2H PRN PRN Dyspnea, wheezing #0 mL 10/01/24 furosemide 40 mg tablet 40 mg PO DAILY #90 tabs 10/01/24 insulin lispro 100 unit/mL subcutaneous pen (Humalog KwikPen (U-100) Insulin) See Protocol subcut ACHS #0 mL 10/01/24 isosorbide mononitrate 30 mg tablet,extended release 24 hr 30 mg PO DAILY #90 tabs 10/01/24 nitroglycerin 0.4 mg sublingual tablet 0.4 mg sublingual Q5M PRN Cardiac/Chest Pain #0 tabs 10/01/24
[2024-10-01] MEDS: Insulin Glargine-YFGN 100 UNIT/ML Pen 35 UNIT SC (11:31)
--- NOTE | 2024-10-01 11:58 | NURSING ---
Report given to [facility] nursing staff. All questions and concerns answered.
== END 2024-10-01 12:02 | disposition skilled nursing facility (03) | DRG 291 ==
LOC: ED 06:46 → PCU 08:41
PROVIDERS: Family Medicine; Admitting Provider Hospitalist; Emergency Provider Surgery; PCP Internal Medicine; Visit Provider Internal Medicine
DX: I13.0 Hypertensive heart and chronic kidney disease with heart failure and stage 1 through stage 4 chronic kidney disease, or unspecified chronic kidney disease (principal); I50.23 Acute on chronic systolic (congestive) heart failure; N18.4 Chronic kidney disease, stage 4 (severe); Z68.42 Body mass index [BMI] 45.0-49.9, adult; J96.11 Chronic respiratory failure with hypoxia; D63.1 Anemia in chronic kidney disease; Z66 Do not resuscitate; R62.7 Adult failure to thrive; E11.42 Type 2 diabetes mellitus with diabetic polyneuropathy; J44.9 Chronic obstructive pulmonary disease, unspecified; F32.A Depression, unspecified; I42.8 Other cardiomyopathies; G47.33 Obstructive sleep apnea (adult) (pediatric); E11.22 Type 2 diabetes mellitus with diabetic chronic kidney disease; Z79.4 Long term (current) use of insulin; E78.5 Hyperlipidemia, unspecified; F41.9 Anxiety disorder, unspecified; E66.813 Obesity, class 3; G89.4 Chronic pain syndrome; R07.89 Other chest pain; R79.1 Abnormal coagulation profile; Z95.810 Presence of automatic (implantable) cardiac defibrillator; Z79.51 Long term (current) use of inhaled steroids; Z79.84 Long term (current) use of oral hypoglycemic drugs; Z79.85 Long-term (current) use of injectable non-insulin antidiabetic drugs; Z79.899 Other long term (current) drug therapy; Z86.718 Personal history of other venous thrombosis and embolism; Z87.891 Personal history of nicotine dependence
CPT/HCPCS: 36415; 71045; 78582; 80048; 80053; 80061; 82962; 83735; 83880; 84100; 84443; 84484; 85025; 85379; 85610; 87811; 93005; 93306; 93970; 94640; 94668; 97162; 97166; 97530; 97535; 99252; 99285; A9540; A9567; Q9957; A4216; C8929; G0463; J1938

== ENCOUNTER 2024-10-14 08:58 | Outpatient (CLI) | payer MEDICARE, OTHER, SELFPAY ==
[2024-10-14 09:23] LABS: Hematocrit 31.9 % (37-47); Hemoglobin 10.3 g/dL (12.0-15.0); Mean Corp Hgb Conc 32.3 g/dL (32-36); Mean Corpuscular Volume 93.8 fL (81-99); Mean Platelet Vol. 9.4 fl (6.2-12.0); Platelet Count 254 K/mm3 (150-450); RBC Distribution Width CV 15.9 % (11.6-14.6); RBC Distribution Width SD 54.3 fl (35.1-43.9); Red Blood Count 3.40 M/mm3 (4.2-5.4); White Blood Count 9.0 K/mm3 (4.4-11.0)
[2024-10-14] MEDS: Epoetin Alfa-EPBX 20,000 unit/ml 20000 UNIT SC (09:57)
[2024-10-14 10:04] VITALS: BP 116/54; PULSE 88; RESP 16; TEMP 35.9; O2SAT 97
[2024-10-14 10:06] LABS: PTHIN 142 pg/mL (11-61)
[2024-10-14 10:08] LABS: Albumin, Serum 3.8 g/dL (3.4-4.8); Anion Gap 15 (5-15); BUN 65 mg/dL (4-19); BUN/Creat Ratio 23.4 RATIO (10-20); Calcium,Total 9.5 mg/dL (7.6-11.0); Carbon Dioxide 24.9 mmol/L (21.0-32.0); Chloride 96 mmol/L (98-108); Glucose 114 mg/dL (70-99); Potassium 3.7 mmol/L (3.3-5.1)
[2024-10-14 11:34] LABS: Cholesterol 58 mg/dL (<=200); Low Density Lipoprotein Calc. 13 mg/dL; Triglycerides 60 mg/dL; Very Low Density Lipoprotein 12 mg/dL (5-40); Vitamin D,25 Hydroxy 26.4 ng/mL (30-100); cholesterol:hdl ratio screen 1.75
[2024-10-14 13:43] LABS: Creatinine, Urine (random) 58.90 mg/dL (28.00-217.00); Protein, Urine (Random) 28.5 mg/dL (0.0-12.0); Protein:Creat Ratio 484 mg/g CRE (0-200)
== END 2024-10-14 23:59 | disposition home or self-care (01) ==
LOC: MEDOUTP 08:59
PROVIDERS: PCP Internal Medicine; Referring Provider Internal Medicine Nephrology; Visit Provider Internal Medicine Nephrology
DX: N18.32 Chronic kidney disease, stage 3b (principal); D63.1 Anemia in chronic kidney disease; E78.2 Mixed hyperlipidemia
CPT/HCPCS: 36415; 80061; 80069; 82306; 82570; 83970; 84156; 85027; 96372; Q5106